=== PATIENT | male | born 1965 | race Caucasian/White ===

== ENCOUNTER 2018-07-25 08:30 | Outpatient (RCR) | payer BC, SELFPAY ==
[2018-07-04 09:40] VITALS: BP 137/84; PULSE 90; RESP 18; TEMP 36.2
--- NOTE | 2018-07-04 11:37 | PCM.WC.HP ---
(1) Ulcer of left lower extremity with fat layer exposed Status: Acute Current Visit: Yes Code(s): L97.922 - Non-pressure chronic ulcer of unspecified part of left lower leg with fat layer exposed (2) PVD (peripheral vascular disease) Status: Acute Current Visit: Yes Code(s): I73.9 - Peripheral vascular disease, unspecified (3) Chronic venous insufficiency Status: Acute Current Visit: Yes Code(s): I87.2 - Venous insufficiency (chronic) (peripheral) (4) Edema, lower extremity Status: Acute Current Visit: Yes Code(s): R60.0 - Localized edema (5) Pain of left lower extremity Status: Acute Current Visit: Yes Code(s): M79.605 - Pain in left leg (6) Delayed wound healing Status: Acute Current Visit: Yes Code(s): T14.8XXD - Other injury of unspecified body region, subsequent encounter History of Present Illness Date of Service: 07/04/18 Chief Complaint: ulcers to the left lower leg/foot History of Wound: This is a 51-year-old white male presents to wound healing center with a long-standing history of chronic venous insufficiency, chronic venous hypertension, lower extremity edema, lower extremity pain, and 3 ulcer sites to left lower leg/foot. The patient has had multiple ulcerations in the lower extremities bilaterally, related to his chronic venous disease. He also has chronic venous stasis changes. The skin changes include hyperpigmentation. 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 He is currently wearing graduated compression stockings which are documented to be 20-30 mmHg compression, however, he says the ones he has on are about a year old. He has new ones at home that he has not been wearing. 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 Patient says that he noticed a small area start opening on the top of his left foot about 8-10 months ago. He says he tried to doctor this on his own with old wound care supplies. He says this continued to get slightly worse. Then, about 4 months ago, he noticed the area around the medial malleolus starting to break down, and that has slowly been getting worse too. He also has a small anterior lower leg ulcer. Nothing he has done on his own to treat these areas has helped. He decided he should finally come back to the wound healing center to see if he can get the areas to heal again. 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 This procedure was performed on March 10, 2014. A vein stripping procedure was performed approximate 4 years ago in [place], [place]. Multiple incisions were made in the legs bilaterally. However, the nature of the procedure is uncertain. Allergies/Adverse Reactions: Allergies ciprofloxacin [From Cipro] Allergy (Verified 08/02/17 11:17) Rash ciprofloxacin HCl [From Cipro] Allergy (Verified 08/02/17 11:17) Rash Home Medications: Ambulatory Orders Medication Instructions Recorded Aspirin [Aspirin, Baby] 81 mg PO DAILY@0800 07/04/18 Ibuprofen 400 mg PO Q6H PRN PRN 07/04/18 - Family History Paternal - - The patient's father at age of 72 with history of lip cancer, myocardial infarction, and cerebrovascular accident. The patient's mother at age 75 with a history of cerebrovascular accident. Smoking Status: Heavy Smoker (>10/day) Review of Systems Constitutional: Denies: Chills, Fever, Weight Change Cardiovascular: Denies: Chest Pain, Palpitations Respiratory: Denies: Cough, Shortness of Breath Gastrointestinal: Denies: Diarrhea, Nausea, Vomiting Musculoskeletal: Reports: Leg Pain Skin: Reports: - - ulcers - Physical Exam Vital Signs Temp Pulse Resp BP 97.1 F L 90 18 137/84 H 07/04/18 09:40 07/04/18 09:40 07/04/18 09:40 07/04/18 09:40 General: Alert, Oriented x3, Cooperative, No apparent distress Extremities: No cyanosis, Capillary Refill Less than 3 Seconds, No Calf Tenderness - Negative Lakisha and Hough sign, Diminished Peripheral Pulses - DP pulse palpable of the left foot and PT pulses nonpalpable, Edema - Lower extremity edema Skin: Ulcer/ Wound - Ulcer to the left dorsomedial foot, left medial ankle, and left anterior lower leg with fat layer exposed. The measurements of each ulcer are listed below. The bases of each ulcer are adherent slough, fibrin, necrotic tissue, hyperkeratotic tissue, and some slight granular tissue. There is no probing, no tracking, no undermining, no surrounding or extending cellulitis, no purulence, no malodor, and no significant increase in warmth appreciated to any ulcer site. Wound Measurements and Assessment WC - Nurse 1 - General Ulcer Measurement Start: 07/04/18 09:40 Freq: Status: Active Protocol: Activity Type Activity Date Activity User E-Sign Co-Sign Detail Recorded Client Recorded Date Recorded By Document 07/04/18 09:40 [id number] 07/04/18 10:14 RB 07/04/18 09:40 Wound Center Nurse 1 [Ulcer Assessment] 6. L ankle superior -Combined with other wound No -Current Size (cm) - Length 2.4 -Current Size (cm) - Width 0.2 -Current Size (cm) - Depth 0.1 -Total Square Cm 0.48 -Photo Taken Yes -Undermining/Tunneling No -Circular Undermining No -Classification - Thickness Full Thickness without Exposed Support Structure -Exudate Amt Medium (34-66%) -Exudate Type Serosanguineous -Wound Margin Thickened & Rolled Under -Granulation Amt Medium (34-66%) -Granulation Quality [place] -Slough/Fibrin Yes -Necrosis Amt Medium (34-66%) -Necrotic Tissue Type Adherent Slough -Structure Exposed N/A -Texture (Ara-wound Skin Appearance) Assessed -Moisture (Ara-wound Skin Appearance Dry/Scaly ) -Color (Ara-wound Skin Appearance) Assessed -Temperature (Ara-wound Skin No Abnormality Appearance) (Pt Warm) -Tenderness on Palpation (Ara-wound No Skin Appearance) -Ulcer Cleansing Rinsed/ Irrigated with Saline -Foul Odor after Cleansing No -Anesthetic Used 4% Lidocaine Solution 5. L ankle inferior cluster -Combined with other wound No -Current Size (cm) - Length 3.7 -Current Size (cm) - Width 4.6 -Current Size (cm) - Depth 0.3 -Total Square Cm 17.02 -Photo Taken Yes -Tunneling No -Undermining/Tunneling No -Circular Undermining No -Classification - Thickness Full Thickness without Exposed Support Structure -Exudate Amt Medium (34-66%) -Exudate Type Serosanguineous -Wound Margin Thickened & Rolled Under -Granulation Amt Medium (34-66%) -Granulation Quality [place] -Slough/Fibrin Yes -Necrosis Amt Medium (34-66%) -Necrotic Tissue Type Adherent Slough -Structure Exposed N/A -Texture (Ara-wound Skin Appearance) Assessed -Moisture (Ara-wound Skin Appearance Assessed ) Dry/Scaly -Color (Ara-wound Skin Appearance) Assessed -Temperature (Ara-wound Skin No Abnormality Appearance) (Pt Warm) -Tenderness on Palpation (Ara-wound No Skin Appearance) -Ulcer Cleansing Rinsed/ Irrigated with Saline -Foul Odor after Cleansing No -Anesthetic Used 4% Lidocaine Solution 4. L medial foot -Combined with other wound No -Current Size (cm) - Length 2.5 -Current Size (cm) - Width 1.2 -Current Size (cm) - Depth 0.3 -Total Square Cm 3.00 -Photo Taken Yes -Tunneling No -Undermining/Tunneling No -Circular Undermining No -Classification - Thickness Full Thickness without Exposed Support Structure -Exudate Amt Medium (34-66%) -Exudate Type Serosanguineous -Wound Margin Thickened & Rolled Under -Granulation Amt Medium (34-66%) -Granulation Quality [place] -Slough/Fibrin Yes -Necrosis Amt Medium (34-66%) -Necrotic Tissue Type Adherent Slough -Structure Exposed N/A -Texture (Ara-wound Skin Appearance) Assessed -Moisture (Ara-wound Skin Appearance Dry/Scaly ) -Color (Ara-wound Skin Appearance) Assessed -Temperature (Ara-wound Skin No Abnormality Appearance) (Pt Warm) -Tenderness on Palpation (Ara-wound No Skin Appearance) -Ulcer Cleansing Rinsed/ Irrigated with Saline -Foul Odor after Cleansing No -Anesthetic Used 4% Lidocaine Solution [Edema Assessment] -Lower Limb Edema Present Yes -Right Calf (cm) 36 -Right Ankle (cm) 21.2 -Left Calf (cm) 35 -Left Ankle (cm) 22.5 WC - Nurse 2 - General Ulcer CM Notes Start: 07/04/18 09:40 Freq: Status: Active Protocol: Activity Type Activity Date Activity User E-Sign Co-Sign Detail Recorded Client Recorded Date Recorded By Document 07/04/18 10:53 LEVI [id number] 07/04/18 11:09 LEVI 07/04/18 10:53 Wound Center Nurse 2 [Procedure/Treatment] 6. L ankle superior -Time 10:53 -Correct Patient Yes -Correct Side, Site, Position Yes -Correct Procedure Yes -Procedure Performed Yes -Type of Procedure Debridement -Clinical Debridement Subcutaneous -Post Debridement Size (cm) - Length 2.5 -Post Debridement Size (cm) - Width 0.3 -Post Debridement Size (cm) - Depth 0.2 -Total Square Cm 0.75 -Wound/Ulcer Outcome Healed- Epithelialized -Foul Odor after Cleansing No -Bioengineered Tissue No -Topical Lidocaine (%) 4 -Lidocaine (ml) 10 -Bleeding Controlled with NA -Treatment Response Procedure Tolerated Well 5. L ankle inferior cluster -Time 10:53 -Correct Patient Yes -Correct Side, Site, Position Yes -Correct Procedure Yes -Procedure Performed Yes -Type of Procedure Debridement -Clinical Debridement Subcutaneous -Post Debridement Size (cm) - Length 3.2 -Post Debridement Size (cm) - Width 4.2 -Post Debridement Size (cm) - Depth 0.3 -Total Square Cm 13.44 -Wound/Ulcer Outcome Not Healed -Ulcer Cleansing Rinsed/ Irrigated with Saline -Foul Odor after Cleansing No -Bioengineered Tissue No -Topical Lidocaine (%) 4 -Lidocaine (ml) 5 -Bleeding Controlled with NA -Treatment Response Procedure Tolerated Well 4. L medial foot -Time 10:53 -Correct Patient Yes -Correct Side, Site, Position Yes -Correct Procedure Yes -Procedure Performed Yes -Type of Procedure Debridement -Clinical Debridement Subcutaneous -Post Debridement Size (cm) - Length 2.5 -Post Debridement Size (cm) - Width 1.1 -Post Debridement Size (cm) - Depth 0.3 -Total Square Cm 2.75 -Wound/Ulcer Outcome Not Healed -Ulcer Cleansing Rinsed/ Irrigated with Saline -Foul Odor after Cleansing No -Bioengineered Tissue No -Injectable Lidocaine (%) 4 -Injectable Lidocaine w/ Epi (%) 5 -Bleeding Controlled with NA -Treatment Response Procedure Tolerated Well [See Physician Procedure note for Specifics] Pain Scale: 0-10 Numeric [Pain] -Is Patient Pain Free? Yes Musculoskeletal: No Tenderness to Palpation of Joints or Extremities, Tenderness - With manipulation of ulcer site Neurological: Sensory exam intact to light touch and pain Psych/Mental Status: Normal Affect, Appropriate Debridement Note Post-Debridement Measurements/Treatment WC - Nurse 2 - General Ulcer CM Notes Start: 07/04/18 09:40 Freq: Status: Active Protocol: Activity Type Activity Date Activity User E-Sign Co-Sign Detail Recorded Client Recorded Date Recorded By Document 07/04/18 10:53 LEVI [id number] 07/04/18 11:09 LEVI 07/04/18 10:53 Wound Center Nurse 2 6. L ankle superior -Time 10:53 -Correct Patient Yes -Correct Side, Site, Position Yes -Correct Procedure Yes -Procedure Performed Yes -Type of Procedure Debridement -Clinical Debridement Subcutaneous -Post Debridement Size (cm) - Length 2.5 -Post Debridement Size (cm) - Width 0.3 -Post Debridement Size (cm) - Depth 0.2 -Total Square Cm 0.75 -Wound/Ulcer Outcome Healed- Epithelialized -Foul Odor after Cleansing No -Bioengineered Tissue No -Topical Lidocaine (%) 4 -Lidocaine (ml) 10 -Bleeding Controlled with NA -Treatment Response Procedure Tolerated Well 5. L ankle inferior cluster -Time 10:53 -Correct Patient Yes -Correct Side, Site, Position Yes -Correct Procedure Yes -Procedure Performed Yes -Type of Procedure Debridement -Clinical Debridement Subcutaneous -Post Debridement Size (cm) - Length 3.2 -Post Debridement Size (cm) - Width 4.2 -Post Debridement Size (cm) - Depth 0.3 -Total Square Cm 13.44 -Wound/Ulcer Outcome Not Healed -Ulcer Cleansing Rinsed/ Irrigated with Saline -Foul Odor after Cleansing No -Bioengineered Tissue No -Topical Lidocaine (%) 4 -Lidocaine (ml) 5 -Bleeding Controlled with NA -Treatment Response Procedure Tolerated Well 4. L medial foot -Time 10:53 -Correct Patient Yes -Correct Side, Site, Position Yes -Correct Procedure Yes -Procedure Performed Yes -Type of Procedure Debridement -Clinical Debridement Subcutaneous -Post Debridement Size (cm) - Length 2.5 -Post Debridement Size (cm) - Width 1.1 -Post Debridement Size (cm) - Depth 0.3 -Total Square Cm 2.75 -Wound/Ulcer Outcome Not Healed -Ulcer Cleansing Rinsed/ Irrigated with Saline -Foul Odor after Cleansing No -Bioengineered Tissue No -Injectable Lidocaine (%) 4 -Injectable Lidocaine w/ Epi (%) 5 -Bleeding Controlled with NA -Treatment Response Procedure Tolerated Well Pain Scale: 0-10 Numeric Is Patient Pain Free? Yes Wound debrided: Left dorsomedial foot Laterality: Left Type of Debridement: Excisional debridement Anesthesia Used: 4% Lidocaine Solution Depth: in the subcutaneous layer Percentage of wound debrided: 100 Instrument Used: 3mm curette Tissue Removed: Adherent slough, fibrin, necrotic tissue, hyperkeratotic tissue Severity: Fat Layer Exposed Amount of bleeding with debridement: Mild Bleeding Controlled with: Pressure Patient tolerated procedure well - Additional Wound Wound debrided: Left medial ankle Laterality: Left Type of Debridement: Excisional debridement Anesthesia Used: 4% Lidocaine Solution Depth: in the subcutaneous layer Percentage of wound debrided: 100 Instrument Used: 3mm curette Tissue Removed: Adherent slough, fibrin, necrotic tissue, hyperkeratotic tissue Severity: Fat Layer Exposed Amount of bleeding with debridement: Mild Bleeding Controlled with: Pressure Patient tolerated procedure: Patient tolerated procedure well - Additional Wound Wound debrided: Left anterior lower leg Laterality: Left Type of Debridement: Excisional debridement Anesthesia Used: 4% Lidocaine Solution Depth: in the subcutaneous layer Percentage of wound debrided: 100 Instrument Used: 3mm curette Tissue Removed: Adherent slough, fibrin, necrotic tissue, hyperkeratotic tissue Severity: Fat Layer Exposed Amount of bleeding with debridement: Mild Bleeding Controlled with: Pressure Patient tolerated procedure: Patient tolerated procedure well Assessment/Plan Active Problems Ulcer of left lower extremity with fat layer exposed (Acute) PVD (peripheral vascular disease) (Acute) Chronic venous insufficiency (Acute) Edema, lower extremity (Acute) Pain of left lower extremity (Acute) Delayed wound healing (Acute) Assessment: Right medial ankle ulcer resolved. Peripheral vascular occlusive disease. Nonhealing ulcers resolved. Edema Plan: Initial patient examination and evaluation was performed today. Subcutaneous debridement was performed to each of the aforementioned ulcer sites as noted in the clinical panel. Once complete, the ulcer sites were carefully cleansed and then dressed with Elvira to the bases followed by a dry sterile dressing and Tubigrip for compression. The patient is to continue the dressing changes in this manner on a daily basis. The importance of offloading the ulcer site was discussed at length with this patient today. He says he is unable to completely stop working, but he does have the option for light duty. A note was written for the patient to be on light duty at work while being treated for open ulcers. The importance of keeping pressure off of these sites was again stressed and we will do our best to keep these areas offloaded. Patient was instructed that while not at work, he is to be off his feet as much as possible and to keep the areas elevated. The importance of compression was also discussed with this patient today. No antibiotics were prescribed today due to the areas not showing signs of acute bacterial infection, however cultures were taken and sent for aerobic, anaerobic, and MRSA PCR evaluation. Pending results, the patient may be placed on an antibiotic in the future. LEAS studies were ordered, and we will evaluate the results prior to patient's next visit. I recommend nutritional supplementation with a high-protein diet at this time in order to help optimize ulcer healing potential. Smoking cessation was stressed today. All signs and symptoms of local and systemic infection were discussed in great detail with the patient today and he was instructed to go to the emergency room immediately should he notice any of these. All questions were answered to the patient's satisfaction. Patient will follow-up in clinic in 1 week to check on progress, or sooner if needed.
[2018-07-11 10:02] VITALS: BP 146/95; PULSE 84; RESP 16; TEMP 36.3
--- NOTE | 2018-07-11 11:12 | CON.PCM_ITS ---
Problem List (1) Ulcer of left lower extremity with fat layer exposed Status: Acute Reason for Consult: LLE ulcer Consulted by: Dr. Elkins History of Present Illness: The patient is a 53 year old M with chronic venous insufficiency who follows at wound care for L ankle ulcers present for several months. Some pain, some redness, some yellow/clear drainage. Sx relatively stable for past few months without abx. No fever. Reports itching with cipro in the past. Doesn't think he has taken levaquin. Established with Dr. Elkins last week. Wound cx done, now with rare PsA, CoNS, and anaerobes. Full ROS performed and neg except as noted above. 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 (Chronic) Tobacco abuse (Chronic) Hypertension (Chronic) Venous stasis of lower extremity (Chronic) Allergies/Adverse Reactions: Allergies ciprofloxacin [From Cipro] Allergy (Verified 08/02/17 11:17) Rash ciprofloxacin HCl [From Cipro] Allergy (Verified 08/02/17 11:17) Rash Home Medications: Ambulatory Orders Medication Instructions Recorded Aspirin [Aspirin, Baby] 81 mg PO DAILY@0800 07/04/18 Ibuprofen 400 mg PO Q6H PRN PRN 07/04/18 - Social History Tobacco Use: cigarettes Vital Signs Temp Pulse Resp BP 97.3 F L 84 16 146/95 H 07/11/18 10:02 07/11/18 10:02 07/11/18 10:02 07/11/18 10:02 Oxygen Delivery Method Room Air Microbiology Past 72 Hours 07/04/18 14:15 Gram Stain - Final Wound - Leg, Left Wound Culture - Final Pseudomonas aeroginosa Coag Negative Staph Anaerobic Culture - Final Anaerobic cocci Bacteroides thetaiotaomicron - Other Studies Radiology: [] Other Studies: [] Route of nutrition/ use of supplements: [] Nutritional Intake: [] IV Site: [] Samaniego Catheter: [] - Physical Exam General: Alert, Oriented x3, Cooperative, No apparent distress HEENT: Atraumatic, PERRLA, EOMI Neck: Supple, No Nodes Lungs: Clear to auscultation, Normal air movement Cardiovascular: Regular rate, Regular Rhythm, No murmurs Abdomen: Soft, Non Tender, Non-Distended Skin: Ulcer/ Wound - L ankle ulcer with no drainage, mild redness Musculoskeletal: No Tenderness to Palpation of Joints or Extremities Neurological: Cranial nerves II-XII grossly intact - Assessment/Plan Antibiotics: [] Assessment/Plan: [] Active and Suspected Problems Ulcer of left lower extremity with fat layer exposed (Acute) PVD (peripheral vascular disease) (Acute) Chronic venous insufficiency (Acute) Edema, lower extremity (Acute) Pain of left lower extremity (Acute) Delayed wound healing (Acute) L ankle ulcer - relatively stable for past few months off of abx. Wound swab with negative gram stain for organisms or wbc. Only rare growth of PsA and CoNS ; some anaerobes seen. This is most consistent with colonization given exam, symptoms, and cr results. Would monitor off of abx at this point and continue with topical care. If ulcer does worsen, I think the next step would be a course of augmentin. Adding po cipro or levaquin would be an option with benadryl pre-treatment. Thank you, will follow as needed, d/w Dr. Elkins.
--- NOTE | 2018-07-11 13:13 | PCM.WC.PN ---
(1) Ulcer of left lower extremity with fat layer exposed Status: Acute Current Visit: Yes Code(s): L97.922 - Non-pressure chronic ulcer of unspecified part of left lower leg with fat layer exposed (2) PVD (peripheral vascular disease) Status: Acute Current Visit: Yes Code(s): I73.9 - Peripheral vascular disease, unspecified (3) Chronic venous insufficiency Status: Acute Current Visit: Yes Code(s): I87.2 - Venous insufficiency (chronic) (peripheral) (4) Edema, lower extremity Status: Acute Current Visit: Yes Code(s): R60.0 - Localized edema (5) Pain of left lower extremity Status: Acute Current Visit: Yes Code(s): M79.605 - Pain in left leg (6) Delayed wound healing Status: Acute Current Visit: Yes Code(s): T14.8XXD - Other injury of unspecified body region, subsequent encounter Type of Wound Date of Service: 07/11/18 Chief Complaint: ulcers to the left lower leg/foot History of Wound: This is a 51-year-old white male presents to wound healing center with a long-standing history of chronic venous insufficiency, chronic venous hypertension, lower extremity edema, lower extremity pain, and 3 ulcer sites to left lower leg/foot. The patient has had multiple ulcerations in the lower extremities bilaterally, related to his chronic venous disease. He also has chronic venous stasis changes. The skin changes include hyperpigmentation. The patient has previously undergone endovenous laser ablation of the left and right great saphenous vein, the small saphenous vein, the left accessory saphenous vein, and an incompetent left calf dresser tender vein located 15 cm proximal to the left medial malleolus. He is currently wearing graduated compression stockings which are documented to be 20-30 mmHg compression, however, he says the ones he has on are about a year old. He has new ones at home that he has not been wearing. 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 Patient says that he noticed a small area start opening on the top of his left foot about 8-10 months ago. He says he tried to doctor this on his own with old wound care supplies. He says this continued to get slightly worse. Then, about 4 months ago, he noticed the area around the medial malleolus starting to break down, and that has slowly been getting worse too. He also has a small anterior lower leg ulcer. Nothing he has done on his own to treat these areas has helped. He decided he should finally come back to the wound healing center to see if he can get the areas to heal again. Progress of Wound: Ulcer sites appear fairly stable since last visit. Patient has continued with daily Elvira dressing changes. Patient denies any feelings of nausea, vomiting, fever, chills at this time. - Physical Exam Vital Signs Temp Pulse Resp BP 97.3 F L 84 16 146/95 H 07/11/18 10:02 07/11/18 10:02 07/11/18 10:07/11/18 10:02 General: Alert, Oriented x3, Cooperative, No apparent distress Extremities: No cyanosis, Capillary Refill Less than 3 Seconds, No Calf Tenderness - Negative Lakisha and Hough sign, Diminished Peripheral Pulses - DP pulses palpable and PT pulses nonpalpable, Edema - Lower extremity edema Skin: Ulcer/ Wound - Ulcer to the left dorsomedial foot, left medial ankle, and left anterior lower leg with fat layer exposed. The measurements of each ulcer site are listed below. The bases of each ulcer site still have adherent slough, fibrin, slight necrotic tissue, hyperkeratotic tissue as well as some granular tissue appreciated. There continues to be no probing to bone, no tracking, no undermining, no surrounding or extending cellulitis, no purulence, no malodor, and no increase in warmth surrounding the ulcer sites at this time. Wound Measurements and Assessment WC - Nurse 1 - General Ulcer Measurement Start: 07/04/18 09:40 Freq: Status: Active Protocol: Activity Type Activity Date Activity User E-Sign Co-Sign Detail Recorded Client Recorded Date Recorded By Document 07/11/18 10:02 [facility] [id number] 07/11/18 10:13 [facility] 07/11/18 10:02 Wound Center Nurse 1 [Ulcer Assessment] 6. L ankle superior -Combined with other wound No -Current Size (cm) - Length 0.6 -Current Size (cm) - Width 0.1 -Current Size (cm) - Depth 0.1 -Total Square Cm 0.06 -Photo Taken No -Epithelialization None Present -Tunneling No -Undermining/Tunneling No -Circular Undermining No -Exudate Amt Small (1-33%) -Exudate Type Serous -Wound Margin Distinct, Outline Attached -Granulation Amt Medium (34-66%) -Granulation Quality Goldenrod -Slough/Fibrin Yes -Necrosis Amt Medium (34-66%) -Necrotic Tissue Type Adherent Slough -Texture (Ara-wound Skin Appearance) Scarring -Moisture (Ara-wound Skin Appearance Dry/Scaly ) -Color (Ara-wound Skin Appearance) Assessed Erythema -Temperature (Ara-wound Skin No Abnormality Appearance) (Pt Warm) -Tenderness on Palpation (Ara-wound No Skin Appearance) -Ulcer Cleansing Rinsed/ Irrigated with Saline -Foul Odor after Cleansing No -Anesthetic Used 4% Lidocaine Solution 5. L ankle inferior cluster -Combined with other wound No -Current Size (cm) - Length 3.2 -Current Size (cm) - Width 0.8 -Current Size (cm) - Depth 0.2 -Total Square Cm 2.56 -Photo Taken No -Epithelialization None Present -Tunneling No -Undermining/Tunneling No -Circular Undermining No -Exudate Amt Small (1-33%) -Exudate Type Serosanguineous -Wound Margin Distinct, Outline Attached -Granulation Amt Medium (34-66%) -Granulation Quality Red -Slough/Fibrin Yes -Necrosis Amt Medium (34-66%) -Necrotic Tissue Type Adherent Slough -Texture (Ara-wound Skin Appearance) Scarring -Moisture (Ara-wound Skin Appearance Dry/Scaly ) -Color (Ara-wound Skin Appearance) Erythema -Temperature (Ara-wound Skin No Abnormality Appearance) (Pt Warm) -Tenderness on Palpation (Ara-wound No Skin Appearance) -Ulcer Cleansing Rinsed/ Irrigated with Saline -Foul Odor after Cleansing No -Anesthetic Used 4% Lidocaine Solution 4. L medial foot -Combined with other wound No -Current Size (cm) - Length 3.3 -Current Size (cm) - Width 4.5 -Current Size (cm) - Depth 0.3 -Total Square Cm 14.85 -Photo Taken No -Epithelialization None Present -Tunneling No -Undermining/Tunneling No -Circular Undermining No -Exudate Amt Medium (34-66%) -Exudate Type Serosanguineous -Wound Margin Distinct, Outline Attached -Granulation Amt Small (1-33%) -Granulation Quality Red -Slough/Fibrin Yes -Necrosis Amt Small (1-33%) -Texture (Ara-wound Skin Appearance) Scarring -Moisture (Ara-wound Skin Appearance Dry/Scaly ) -Color (Ara-wound Skin Appearance) Erythema -Temperature (Ara-wound Skin No Abnormality Appearance) (Pt Warm) -Tenderness on Palpation (Ara-wound No Skin Appearance) -Ulcer Cleansing Rinsed/ Irrigated with Saline -Foul Odor after Cleansing No -Anesthetic Used 4% Lidocaine Solution [Edema Assessment] -Lower Limb Edema Present Yes -Left Calf (cm) 36.1 -Left Ankle (cm) 23.9 WC - Nurse 2 - General Ulcer CM Notes Start: 07/04/18 09:40 Freq: Status: Active Protocol: Activity Type Activity Date Activity User E-Sign Co-Sign Detail Recorded Client Recorded Date Recorded By Document 07/11/18 10:44 [id number] 07/11/18 10:55 07/11/18 10:44 Wound Center Nurse 2 [Procedure/Treatment] 6. L ankle superior -Time 10:46 -Correct Patient Yes -Correct Side, Site, Position Yes -Correct Procedure Yes -Procedure Performed Yes -Type of Procedure Debridement -Clinical Debridement Subcutaneous -Post Debridement Size (cm) - Length 2.7 -Post Debridement Size (cm) - Width 0.3 -Post Debridement Size (cm) - Depth 0.2 -Total Square Cm 0.81 -Wound/Ulcer Outcome Not Healed -Ulcer Cleansing Not Cleansed -Foul Odor after Cleansing No -Bioengineered Tissue No -Bleeding Controlled with Pressure -Treatment Response Procedure Not Tolerated Well 5. L ankle inferior cluster -Time 10:46 -Correct Patient Yes -Correct Side, Site, Position Yes -Correct Procedure Yes -Procedure Performed Yes -Type of Procedure Debridement -Clinical Debridement Subcutaneous -Post Debridement Size (cm) - Length 2.9 -Post Debridement Size (cm) - Width 1.1 -Post Debridement Size (cm) - Depth 0.3 -Total Square Cm 3.19 -Wound/Ulcer Outcome Not Healed -Ulcer Cleansing Not Cleansed -Foul Odor after Cleansing No -Bioengineered Tissue No -Bleeding Controlled with Pressure -Treatment Response Procedure Tolerated Well 4. L medial foot -Time 10:46 -Correct Patient Yes -Correct Side, Site, Position Yes -Correct Procedure Yes -Procedure Performed Yes -Type of Procedure Debridement -Clinical Debridement Subcutaneous -Post Debridement Size (cm) - Length 3.9 -Post Debridement Size (cm) - Width 5.2 -Post Debridement Size (cm) - Depth 0.3 -Total Square Cm 20.28 -Wound/Ulcer Outcome Not Healed -Ulcer Cleansing Not Cleansed -Foul Odor after Cleansing No -Bioengineered Tissue No -Bleeding Controlled with Pressure -Treatment Response Procedure Tolerated Well [See Physician Procedure note for Specifics] Pain Scale: 0-10 Numeric [Pain] -Is Patient Pain Free? No Musculoskeletal: No Tenderness to Palpation of Joints or Extremities, Tenderness - With manipulation of ulcer sites Neurological: Sensory exam intact to light touch and pain Psych/Mental Status: Normal Affect, Appropriate Debridement Note Post-Debridement Measurements/Treatment WC - Nurse 2 - General Ulcer CM Notes Start: 07/04/18 09:40 Freq: Status: Active Protocol: Activity Type Activity Date Activity User E-Sign Co-Sign Detail Recorded Client Recorded Date Recorded By Document 07/04/18 10:53 [id number] 07/04/18 11:09 JS Document 07/11/18 10:44 [id number] 07/11/18 10:55 07/04/18 07/11/18 10:53 10:44 Wound Center Nurse 2 6. L ankle superior -Time 10:53 10:46 -Correct Patient Yes Yes -Correct Side, Site, Position Yes Yes -Correct Procedure Yes Yes -Procedure Performed Yes Yes -Type of Procedure Debridement Debridement -Clinical Debridement Subcutaneous Subcutaneous -Post Debridement Size (cm) - Length 2.5 2.7 -Post Debridement Size (cm) - Width 0.3 0.3 -Post Debridement Size (cm) - Depth 0.2 0.2 -Total Square Cm 0.75 0.81 -Wound/Ulcer Outcome Healed- Not Healed Epithelialized -Ulcer Cleansing Not Cleansed -Foul Odor after Cleansing No No -Bioengineered Tissue No No -Topical Lidocaine (%) 4 -Lidocaine (ml) 10 -Bleeding Controlled with NA Pressure -Treatment Response Procedure Procedure Not Tolerated Well Tolerated Well 5. L ankle inferior cluster -Time 10:53 10:46 -Correct Patient Yes Yes -Correct Side, Site, Position Yes Yes -Correct Procedure Yes Yes -Procedure Performed Yes Yes -Type of Procedure Debridement Debridement -Clinical Debridement Subcutaneous Subcutaneous -Post Debridement Size (cm) - Length 3.2 2.9 -Post Debridement Size (cm) - Width 4.2 1.1 -Post Debridement Size (cm) - Depth 0.3 0.3 -Total Square Cm 13.44 3.19 -Wound/Ulcer Outcome Not Healed Not Healed -Ulcer Cleansing Rinsed/ Not Cleansed Irrigated with Saline -Foul Odor after Cleansing No No -Bioengineered Tissue No No -Topical Lidocaine (%) 4 -Lidocaine (ml) 5 -Bleeding Controlled with NA Pressure -Treatment Response Procedure Procedure Tolerated Well Tolerated Well 4. L medial foot -Time 10:53 10:46 -Correct Patient Yes Yes -Correct Side, Site, Position Yes Yes -Correct Procedure Yes Yes -Procedure Performed Yes Yes -Type of Procedure Debridement Debridement -Clinical Debridement Subcutaneous Subcutaneous -Post Debridement Size (cm) - Length 2.5 3.9 -Post Debridement Size (cm) - Width 1.1 5.2 -Post Debridement Size (cm) - Depth 0.3 0.3 -Total Square Cm 2.75 20.28 -Wound/Ulcer Outcome Not Healed Not Healed -Ulcer Cleansing Rinsed/ Not Cleansed Irrigated with Saline -Foul Odor after Cleansing No No -Bioengineered Tissue No No -Injectable Lidocaine (%) 4 -Injectable Lidocaine w/ Epi (%) 5 -Bleeding Controlled with NA Pressure -Treatment Response Procedure Procedure Tolerated Well Tolerated Well Pain Scale: 0-10 Numeric Is Patient Pain Free? Yes No Wound debrided: Left dorsomedial foot Laterality: Left Type of Debridement: Excisional debridement Anesthesia Used: 4% Lidocaine Solution Depth: in the subcutaneous layer Percentage of wound debrided: 100 Instrument Used: 3mm curette Tissue Removed: Adherent slough, fibrin, necrotic tissue, hyperkeratotic tissue Severity: Fat Layer Exposed Amount of bleeding with debridement: Mild Bleeding Controlled with: Pressure Patient tolerated procedure well - Additional Wound Wound debrided: Left medial ankle Laterality: Left Type of Debridement: Excisional debridement Anesthesia Used: 4% Lidocaine Solution Depth: in the subcutaneous layer Percentage of wound debrided: 100 Instrument Used: 3mm curette Tissue Removed: Adherent slough, fibrin, necrotic tissue, hyperkeratotic tissue Severity: Fat Layer Exposed Amount of bleeding with debridement: Mild Bleeding Controlled with: Pressure Patient tolerated procedure: Patient tolerated procedure well - Additional Wound Wound debrided: Left anterior lower leg Laterality: Left Type of Debridement: Excisional debridement Anesthesia Used: 4% Lidocaine Solution Depth: in the subcutaneous layer Percentage of wound debrided: 100 Instrument Used: 3mm curette Tissue Removed: Adherent slough, fibrin, necrotic tissue, hyperkeratotic tissue Severity: Fat Layer Exposed Amount of bleeding with debridement: Mild Bleeding Controlled with: Pressure Patient tolerated procedure: Patient tolerated procedure well Assessment/Plan Active Problems Ulcer of left lower extremity with fat layer exposed (Acute) PVD (peripheral vascular disease) (Acute) Chronic venous insufficiency (Acute) Edema, lower extremity (Acute) Pain of left lower extremity (Acute) Delayed wound healing (Acute) Assessment: Right medial ankle ulcer resolved. Peripheral vascular occlusive disease. Nonhealing ulcers resolved. Edema Plan: Patient was carefully examined and evaluated today. Subcutaneous debridement was performed to each of the aforementioned ulcer sites as noted in the clinical panel again this week. Once complete, the ulcer sites were carefully cleansed and then dressed with Elvira to the bases followed by a dry sterile dressing and Tubigrip for compression. The patient is to continue the dressing changes in this manner on a daily basis. The importance of offloading the ulcer site was discussed at length with this patient again today. He says he is unable to completely stop working, but he does have the option for light duty. A note was written for the patient to be on light duty at work while being treated for open ulcers again this week. Patient was instructed that while not at work, he is to be off his feet as much as possible and to keep the areas elevated. The importance of compression was also discussed with this patient today. Culture results were reviewed and Dr. Farris with infectious disease was consulted and saw the patient today. He feels that at this time, antibiotics are not warranted, and that the patient should continue to be monitored in case he needs antibiotics in the future. LEAS studies were ordered at previous visit, and we will evaluate the results once the studies are completed. I continue to recommend nutritional supplementation with a high-protein diet at this time in order to help optimize ulcer healing potential. Smoking cessation was stressed today. All signs and symptoms of local and systemic infection were discussed in great detail with the patient today and he was instructed to go to the emergency room immediately should he notice any of these. All questions were answered to the patient's satisfaction. Patient will follow-up in clinic in 1 week to check on progress, or sooner if needed.
--- NOTE | 2018-07-11 13:17 | PN.PCM_ITS ---
(1) Ulcer of left lower extremity with fat layer exposed Status: Acute Current Visit: Yes Code(s): L97.922 - Non-pressure chronic ulcer of unspecified part of left lower leg with fat layer exposed (2) PVD (peripheral vascular disease) Status: Acute Current Visit: Yes Code(s): I73.9 - Peripheral vascular disease, unspecified (3) Chronic venous insufficiency Status: Acute Current Visit: Yes Code(s): I87.2 - Venous insufficiency ( chronic) (peripheral) (4) Edema, lower extremity Status: Acute Current Visit: Yes Code(s): R60.0 - Localized edema (5) Pain of left lower extremity Status: Acute Current Visit: Yes Code(s): M79.605 - Pain in left leg (6) Delayed wound healing Status: Acute Current Visit: Yes Code(s): T14.8XXD - Other injury of unspecified body region, subsequent encounter Type of Wound Date of Service: 07/11/18 Chief Complaint: ulcers to the left lower leg/foot History of Wound: This is a 51-year-old white male presents to wound healing center with a long-standing history of chronic venous insufficiency, chronic venous hypertension, lower extremity edema, lower extremity pain, and 3 ulcer sites to left lower leg/foot. The patient has had multiple ulcerations in the lower extremities bilaterally, related to his chronic venous disease. He also has chronic venous stasis changes. The skin changes include hyperpigmentation. The patient has previously undergone endovenous laser ablation of the left and right great saphenous vein, the small saphenous vein, the left accessory saphenous vein, and an incompetent left calf wireline operator vein located 15 cm proximal to the left medial malleolus. He is currently wearing graduated compression stockings which are documented to be 20-30 mmHg compression, however , he says the ones he has on are about a year old. He has new ones at home that he has not been wearing. 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 Patient says that he noticed a small area start opening on the top of his left foot about 8-10 months ago. He says he tried to doctor this on his own with old wound care supplies. He says this continued to get slightly worse. Then, about 4 months ago, he noticed the area around the medial malleolus starting to break down, and that has slowly been getting worse too. He also has a small anterior lower leg ulcer. Nothing he has done on his own to treat these areas has helped. He decided he should finally come back to the wound healing center to see if he can get the areas to heal again. Progress of Wound: Ulcer sites appear fairly stable since last visit. Patient has continued with daily Elvira dressing changes. Patient denies any feelings of nausea, vomiting, fever, chills at this time. - Physical Exam Vital Signs Temp Pulse Resp BP 97.3 F L 84 16 146/95 H 07/11/18 10:02 07/11/18 10:02 07/11/18 10:07/11/18 10:02 General: Alert, Oriented x3, Cooperative, No apparent distress Extremities: No cyanosis, Capillary Refill Less than 3 Seconds, No Calf Tenderness - Negative Lakisha and Hough sign, Diminished Peripheral Pulses - DP pulses palpable and PT pulses nonpalpable, Edema - Lower extremity edema Skin: Ulcer/ Wound - Ulcer to the left dorsomedial foot, left medial ankle, and left anterior lower leg with fat layer exposed. The measurements of each ulcer site are listed below. The bases of each ulcer site still have adherent slough , fibrin, slight necrotic tissue, hyperkeratotic tissue as well as some granular tissue appreciated. There continues to be no probing to bone, no tracking, no undermining, no surrounding or extending cellulitis, no purulence, no malodor, and no increase in warmth surrounding the ulcer sites at this time. Wound Measurements and Assessment WC - Nurse 1 - General Ulcer Measurement Start: 07/04/18 09:40 Freq: Status: Active Protocol: Activity Type Activity Date Activity User E-Sign Co-Sign Detail Recorded Client Recorded Date Recorded By Document 07/11/18 10:02 [facility] [id number] 07/11/18 10:13 [facility] 07/11/18 10:02 Wound Center Nurse 1 [Ulcer Assessment] 6. L ankle superior -Combined with other wound No -Current Size (cm) - Length 0.6 -Current Size (cm) - Width 0.1 -Current Size (cm) - Depth 0.1 -Total Square Cm 0.06 -Photo Taken No -Epithelialization None Present -Tunneling No -Undermining/Tunneling No -Circular Undermining No -Exudate Amt Small (1-33%) -Exudate Type Serous -Wound Margin Distinct, Outline Attached -Granulation Amt Medium (34-66%) -Granulation Quality [place] -Slough/Fibrin Yes -Necrosis Amt Medium (34-66%) -Necrotic Tissue Type Adherent Slough -Texture (Ara-wound Skin Appearance) Scarring -Moisture (Ara-wound Skin Appearance Dry/Scaly ) -Color (Ara-wound Skin Appearance) Assessed Erythema -Temperature (Ara-wound Skin No Abnormality Appearance) (Pt Warm) -Tenderness on Palpation (Ara-wound No Skin Appearance) -Ulcer Cleansing Rinsed/ Irrigated with Saline -Foul Odor after Cleansing No -Anesthetic Used 4% Lidocaine Solution 5. L ankle inferior cluster -Combined with other wound No -Current Size (cm) - Length 3.2 -Current Size (cm) - Width 0.8 -Current Size (cm) - Depth 0.2 -Total Square Cm 2.56 -Photo Taken No -Epithelialization None Present -Tunneling No -Undermining/Tunneling No -Circular Undermining No -Exudate Amt Small (1-33%) -Exudate Type Serosanguineous -Wound Margin Distinct, Outline Attached -Granulation Amt Medium (34-66%) -Granulation Quality Red -Slough/Fibrin Yes -Necrosis Amt Medium (34-66%) -Necrotic Tissue Type Adherent Slough -Texture (Ara-wound Skin Appearance) Scarring -Moisture (Ara-wound Skin Appearance Dry/Scaly ) -Color (Ara-wound Skin Appearance) Erythema -Temperature (Ara-wound Skin No Abnormality Appearance) (Pt Warm) -Tenderness on Palpation (Ara-wound No Skin Appearance) -Ulcer Cleansing Rinsed/ Irrigated with Saline -Foul Odor after Cleansing No -Anesthetic Used 4% Lidocaine Solution 4. L medial foot -Combined with other wound No -Current Size (cm) - Length 3.3 -Current Size (cm) - Width 4.5 -Current Size (cm) - Depth 0.3 -Total Square Cm 14.85 -Photo Taken No -Epithelialization None Present -Tunneling No -Undermining/Tunneling No -Circular Undermining No -Exudate Amt Medium (34-66%) -Exudate Type Serosanguineous -Wound Margin Distinct, Outline Attached -Granulation Amt Small (1-33%) -Granulation Quality Red -Slough/Fibrin Yes -Necrosis Amt Small (1-33%) -Texture (Ara-wound Skin Appearance) Scarring -Moisture (Ara-wound Skin Appearance Dry/Scaly ) -Color (Ara-wound Skin Appearance) Erythema -Temperature (Ara-wound Skin No Abnormality Appearance) (Pt Warm) -Tenderness on Palpation (Ara-wound No Skin Appearance) -Ulcer Cleansing Rinsed/ Irrigated with Saline -Foul Odor after Cleansing No -Anesthetic Used 4% Lidocaine Solution [Edema Assessment] -Lower Limb Edema Present Yes -Left Calf (cm) 36.1 -Left Ankle (cm) 23.9 WC - Nurse 2 - General Ulcer CM Notes Start: 07/04/18 09:40 Freq: Status: Active Protocol: Activity Type Activity Date Activity User E-Sign Co-Sign Detail Recorded Client Recorded Date Recorded By Document 07/11/18 10:44 [id number] 07/11/18 10:55 07/11/18 10:44 Wound Center Nurse 2 [Procedure/Treatment] 6. L ankle superior -Time 10:46 -Correct Patient Yes -Correct Side, Site, Position Yes -Correct Procedure Yes -Procedure Performed Yes -Type of Procedure Debridement -Clinical Debridement Subcutaneous -Post Debridement Size (cm) - Length 2.7 -Post Debridement Size (cm) - Width 0.3 -Post Debridement Size (cm) - Depth 0.2 -Total Square Cm 0.81 -Wound/Ulcer Outcome Not Healed -Ulcer Cleansing Not Cleansed -Foul Odor after Cleansing No -Bioengineered Tissue No -Bleeding Controlled with Pressure -Treatment Response Procedure Not Tolerated Well 5. L ankle inferior cluster -Time 10:46 -Correct Patient Yes -Correct Side, Site, Position Yes -Correct Procedure Yes -Procedure Performed Yes -Type of Procedure Debridement -Clinical Debridement Subcutaneous -Post Debridement Size (cm) - Length 2.9 -Post Debridement Size (cm) - Width 1.1 -Post Debridement Size (cm) - Depth 0.3 -Total Square Cm 3.19 -Wound/Ulcer Outcome Not Healed -Ulcer Cleansing Not Cleansed -Foul Odor after Cleansing No -Bioengineered Tissue No -Bleeding Controlled with Pressure -Treatment Response Procedure Tolerated Well 4. L medial foot -Time 10:46 -Correct Patient Yes -Correct Side, Site, Position Yes -Correct Procedure Yes -Procedure Performed Yes -Type of Procedure Debridement -Clinical Debridement Subcutaneous -Post Debridement Size (cm) - Length 3.9 -Post Debridement Size (cm) - Width 5.2 -Post Debridement Size (cm) - Depth 0.3 -Total Square Cm 20.28 -Wound/Ulcer Outcome Not Healed -Ulcer Cleansing Not Cleansed -Foul Odor after Cleansing No -Bioengineered Tissue No -Bleeding Controlled with Pressure -Treatment Response Procedure Tolerated Well [See Physician Procedure note for Specifics] Pain Scale: 0-10 Numeric [Pain] -Is Patient Pain Free? No Musculoskeletal: No Tenderness to Palpation of Joints or Extremities, Tenderness - With manipulation of ulcer sites Neurological: Sensory exam intact to light touch and pain Psych/Mental Status: Normal Affect, Appropriate Debridement Note Post-Debridement Measurements/Treatment WC - Nurse 2 - General Ulcer CM Notes Start: 07/04/18 09:40 Freq: Status: Active Protocol: Activity Type Activity Date Activity User E-Sign Co-Sign Detail Recorded Client Recorded Date Recorded By Document 07/04/18 10:53 [id number] 07/04/18 11:09 JS Document 07/11/18 10:44 [id number] 07/11/18 10:55 07/04/18 07/11/18 10:53 10:44 Wound Center Nurse 2 6. L ankle superior -Time 10:53 10:46 -Correct Patient Yes Yes -Correct Side, Site, Position Yes Yes -Correct Procedure Yes Yes -Procedure Performed Yes Yes -Type of Procedure Debridement Debridement -Clinical Debridement Subcutaneous Subcutaneous -Post Debridement Size (cm) - Length 2.5 2.7 -Post Debridement Size (cm) - Width 0.3 0.3 -Post Debridement Size (cm) - Depth 0.2 0.2 -Total Square Cm 0.75 0.81 -Wound/Ulcer Outcome Healed- Not Healed Epithelialized -Ulcer Cleansing Not Cleansed -Foul Odor after Cleansing No No -Bioengineered Tissue No No -Topical Lidocaine (%) 4 -Lidocaine (ml) 10 -Bleeding Controlled with NA Pressure -Treatment Response Procedure Procedure Not Tolerated Well Tolerated Well 5. L ankle inferior cluster -Time 10:53 10:46 -Correct Patient Yes Yes -Correct Side, Site, Position Yes Yes -Correct Procedure Yes Yes -Procedure Performed Yes Yes -Type of Procedure Debridement Debridement -Clinical Debridement Subcutaneous Subcutaneous -Post Debridement Size (cm) - Length 3.2 2.9 -Post Debridement Size (cm) - Width 4.2 1.1 -Post Debridement Size (cm) - Depth 0.3 0.3 -Total Square Cm 13.44 3.19 -Wound/Ulcer Outcome Not Healed Not Healed -Ulcer Cleansing Rinsed/ Not Cleansed Irrigated with Saline -Foul Odor after Cleansing No No -Bioengineered Tissue No No -Topical Lidocaine (%) 4 -Lidocaine (ml) 5 -Bleeding Controlled with NA Pressure -Treatment Response Procedure Procedure Tolerated Well Tolerated Well 4. L medial foot -Time 10:53 10:46 -Correct Patient Yes Yes -Correct Side, Site, Position Yes Yes -Correct Procedure Yes Yes -Procedure Performed Yes Yes -Type of Procedure Debridement Debridement -Clinical Debridement Subcutaneous Subcutaneous -Post Debridement Size (cm) - Length 2.5 3.9 -Post Debridement Size (cm) - Width 1.1 5.2 -Post Debridement Size (cm) - Depth 0.3 0.3 -Total Square Cm 2.75 20.28 -Wound/Ulcer Outcome Not Healed Not Healed -Ulcer Cleansing Rinsed/ Not Cleansed Irrigated with Saline -Foul Odor after Cleansing No No -Bioengineered Tissue No No -Injectable Lidocaine (%) 4 -Injectable Lidocaine w/ Epi (%) 5 -Bleeding Controlled with NA Pressure -Treatment Response Procedure Procedure Tolerated Well Tolerated Well Pain Scale: 0-10 Numeric Is Patient Pain Free? Yes No Wound debrided: Left dorsomedial foot Laterality: Left Type of Debridement: Excisional debridement Anesthesia Used: 4% Lidocaine Solution Depth: in the subcutaneous layer Percentage of wound debrided: 100 Instrument Used: 3mm curette Tissue Removed: Adherent slough, fibrin, necrotic tissue, hyperkeratotic tissue Severity: Fat Layer Exposed Amount of bleeding with debridement: Mild Bleeding Controlled with: Pressure Patient tolerated procedure well - Additional Wound Wound debrided: Left medial ankle Laterality: Left Type of Debridement: Excisional debridement Anesthesia Used: 4% Lidocaine Solution Depth: in the subcutaneous layer Percentage of wound debrided: 100 Instrument Used: 3mm curette Tissue Removed: Adherent slough, fibrin, necrotic tissue, hyperkeratotic tissue Severity: Fat Layer Exposed Amount of bleeding with debridement: Mild Bleeding Controlled with: Pressure Patient tolerated procedure: Patient tolerated procedure well - Additional Wound Wound debrided: Left anterior lower leg Laterality: Left Type of Debridement: Excisional debridement Anesthesia Used: 4% Lidocaine Solution Depth: in the subcutaneous layer Percentage of wound debrided: 100 Instrument Used: 3mm curette Tissue Removed: Adherent slough, fibrin, necrotic tissue, hyperkeratotic tissue Severity: Fat Layer Exposed Amount of bleeding with debridement: Mild Bleeding Controlled with: Pressure Patient tolerated procedure: Patient tolerated procedure well Assessment/Plan Active Problems Ulcer of left lower extremity with fat layer exposed (Acute) PVD (peripheral vascular disease) (Acute) Chronic venous insufficiency (Acute) Edema, lower extremity (Acute) Pain of left lower extremity (Acute) Delayed wound healing (Acute) Assessment: Right medial ankle ulcer resolved. Peripheral vascular occlusive disease. Nonhealing ulcers resolved. Edema Plan: Patient was carefully examined and evaluated today. Subcutaneous debridement was performed to each of the aforementioned ulcer sites as noted in the clinical panel again this week. Once complete, the ulcer sites were carefully cleansed and then dressed with Elvira to the bases followed by a dry sterile dressing and Tubigrip for compression. The patient is to continue the dressing changes in this manner on a daily basis. The importance of offloading the ulcer site was discussed at length with this patient again today. He says he is unable to completely stop working, but he does have the option for light duty. A note was written for the patient to be on light duty at work while being treated for open ulcers again this week. Patient was instructed that while not at work, he is to be off his feet as much as possible and to keep the areas elevated. The importance of compression was also discussed with this patient today. Culture results were reviewed and Dr. Farris with infectious disease was consulted and saw the patient today. He feels that at this time, antibiotics are not warranted, and that the patient should continue to be monitored in case he needs antibiotics in the future. LEAS studies were ordered at previous visit, and we will evaluate the results once the studies are completed. I continue to recommend nutritional supplementation with a high- protein diet at this time in order to help optimize ulcer healing potential. Smoking cessation was stressed today. All signs and symptoms of local and systemic infection were discussed in great detail with the patient today and he was instructed to go to the emergency room immediately should he notice any of these. All questions were answered to the patient's satisfaction. Patient will follow-up in clinic in 1 week to check on progress, or sooner if needed.
[2018-07-18 09:56] VITALS: BP 150/96; PULSE 80; RESP 16; TEMP 35.7
--- NOTE | 2018-07-18 13:55 | PCM.WC.PN ---
(1) Ulcer of left lower extremity with fat layer exposed Status: Acute Current Visit: Yes Code(s): L97.922 - Non-pressure chronic ulcer of unspecified part of left lower leg with fat layer exposed (2) PVD (peripheral vascular disease) Status: Acute Current Visit: Yes Code(s): I73.9 - Peripheral vascular disease, unspecified (3) Chronic venous insufficiency Status: Acute Current Visit: Yes Code(s): I87.2 - Venous insufficiency (chronic) (peripheral) (4) Edema, lower extremity Status: Acute Current Visit: Yes Code(s): R60.0 - Localized edema (5) Pain of left lower extremity Status: Acute Current Visit: Yes Code(s): M79.605 - Pain in left leg (6) Delayed wound healing Status: Acute Current Visit: Yes Code(s): T14.8XXD - Other injury of unspecified body region, subsequent encounter Type of Wound Date of Service: 07/18/18 Chief Complaint: ulcers to the left lower leg/foot History of Wound: This is a 51-year-old white male presents to wound healing center with a long-standing history of chronic venous insufficiency, chronic venous hypertension, lower extremity edema, lower extremity pain, and 3 ulcer sites to left lower leg/foot. The patient has had multiple ulcerations in the lower extremities bilaterally, related to his chronic venous disease. He also has chronic venous stasis changes. The skin changes include hyperpigmentation. The patient has previously undergone endovenous laser ablation of the left and right great saphenous vein, the small saphenous vein, the left accessory saphenous vein, and an incompetent left calf professor of mechanical engineering vein located 15 cm proximal to the left medial malleolus. He is currently wearing graduated compression stockings which are documented to be 20-30 mmHg compression, however, he says the ones he has on are about a year old. He has new ones at home that he has not been wearing. 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 Patient says that he noticed a small area start opening on the top of his left foot about 8-10 months ago. He says he tried to doctor this on his own with old wound care supplies. He says this continued to get slightly worse. Then, about 4 months ago, he noticed the area around the medial malleolus starting to break down, and that has slowly been getting worse too. He also has a small anterior lower leg ulcer. Nothing he has done on his own to treat these areas has helped. He decided he should finally come back to the wound healing center to see if he can get the areas to heal again. Progress of Wound: Ulcer sites appear fairly stable since last visit. Patient has continued with daily Elvira dressing changes. Patient denies any feelings of nausea, vomiting, fever, chills at this time. - Physical Exam Vital Signs Temp Pulse Resp BP 96.2 F L 80 16 150/96 H 07/18/18 09:56 07/18/18 09:56 07/18/18 09:56 07/18/18 09:56 General: Alert, Oriented x3, Cooperative, No apparent distress Extremities: No cyanosis, Capillary Refill Less than 3 Seconds, No Calf Tenderness - Negative Lakisha and Hough sign, Diminished Peripheral Pulses - DP pulses palpable and PT pulses nonpalpable, Edema - Lower extremity edema Skin: Ulcer/ Wound - Ulcer to the left dorsal medial foot, left medial ankle, and left anterior lower leg with fat layer exposed. The measurements of each ulcer site are listed below. The bases of each ulcer sites are noted to have adherent slough, fibrin, necrotic tissue, granular tissue and hyperkeratotic tissue. There continues to be no probing to bone, no tracking, no undermining, no surrounding or extending cellulitis, no purulence, no malodor, and no increase in warmth surrounding the ulcer sites today. Wound Measurements and Assessment WC - Nurse 1 - General Ulcer Measurement Start: 07/04/18 09:40 Freq: Status: Active Protocol: Activity Type Activity Date Activity User E-Sign Co-Sign Detail Recorded Client Recorded Date Recorded By Document 07/18/18 09:56 [id number] 07/18/18 10:06 07/18/18 09:56 Wound Center Nurse 1 [Ulcer Assessment] 6. L ankle superior -Combined with other wound No -Current Size (cm) - Length 0.9 -Current Size (cm) - Width 0.3 -Current Size (cm) - Depth 0.1 -Total Square Cm 0.27 -Photo Taken No -Epithelialization None Present -Tunneling No -Undermining/Tunneling No -Circular Undermining No -Exudate Amt None Present (0 %) -Wound Margin Distinct, Outline Attached -Granulation Amt None Present (0 %) -Slough/Fibrin Yes -Necrosis Amt None Present (0 %) -Necrotic Tissue Type Adherent Slough -Texture (Ara-wound Skin Appearance) Assessed Scarring -Moisture (Ara-wound Skin Appearance No Abnormality ) Assessed -Color (Ara-wound Skin Appearance) No Abnormality Assessed -Temperature (Ara-wound Skin No Abnormality Appearance) (Pt Warm) -Tenderness on Palpation (Ara-wound No Skin Appearance) -Ulcer Cleansing Rinsed/ Irrigated with Saline -Foul Odor after Cleansing No -Anesthetic Used 4% Lidocaine Solution 5. L ankle inferior cluster -Current Size (cm) - Length 2.9 -Current Size (cm) - Width 0.9 -Current Size (cm) - Depth 0.2 -Total Square Cm 2.61 -Photo Taken No -Epithelialization None Present -Tunneling No -Undermining/Tunneling No -Circular Undermining No -Exudate Amt Small (1-33%) -Exudate Type Serosanguineous -Wound Margin Distinct, Outline Attached -Granulation Amt None Present (0 %) -Slough/Fibrin Yes -Necrosis Amt None Present (0 %) -Necrotic Tissue Type Adherent Slough -Structure Exposed None/Limited to Skin Breakdown -Texture (Ara-wound Skin Appearance) Assessed Scarring -Moisture (Ara-wound Skin Appearance No Abnormality ) Assessed -Color (Ara-wound Skin Appearance) No Abnormality -Temperature (Ara-wound Skin No Abnormality Appearance) (Pt Warm) -Tenderness on Palpation (Raa-wound No Skin Appearance) -Ulcer Cleansing Rinsed/ Irrigated with Saline -Foul Odor after Cleansing No -Anesthetic Used 4% Lidocaine Solution 4. L medial foot -Combined with other wound No -Current Size (cm) - Length 4.7 -Current Size (cm) - Width 5.3 -Current Size (cm) - Depth 0.2 -Total Square Cm 24.91 -Photo Taken No -Epithelialization None Present -Tunneling No -Undermining/Tunneling No -Circular Undermining No -Exudate Amt Small (1-33%) -Exudate Type Serosanguineous -Wound Margin Distinct, Outline Attached -Granulation Amt None Present (0 %) -Granulation Quality N/A -Slough/Fibrin Yes -Necrosis Amt None Present (0 %) -Necrotic Tissue Type Adherent Slough -Texture (Ara-wound Skin Appearance) No Abnormality Assessed -Moisture (Ara-wound Skin Appearance No Abnormality ) Assessed -Color (Ara-wound Skin Appearance) No Abnormality Assessed -Temperature (Ara-wound Skin No Abnormality Appearance) (Pt Warm) -Tenderness on Palpation (Ara-wound No Skin Appearance) -Ulcer Cleansing Rinsed/ Irrigated with Saline -Foul Odor after Cleansing No -Anesthetic Used 4% Lidocaine Solution [Edema Assessment] -Lower Limb Edema Present No -Left Calf (cm) 34 -Left Ankle (cm) 25 WC - Nurse 2 - General Ulcer CM Notes Start: 07/04/18 09:40 Freq: Status: Active Protocol: Activity Type Activity Date Activity User E-Sign Co-Sign Detail Recorded Client Recorded Date Recorded By Document 07/18/18 10:32 DV [id number] 07/18/18 10:43 DV 07/18/18 10:32 Wound Center Nurse 2 [Procedure/Treatment] 6. L ankle superior -Time 10:32 -Correct Patient Yes -Correct Side, Site, Position Yes -Correct Procedure Yes -Procedure Performed Yes -Type of Procedure Debridement -Clinical Debridement Subcutaneous -Post Debridement Size (cm) - Length 1.0 -Post Debridement Size (cm) - Width 0.3 -Post Debridement Size (cm) - Depth 0.2 -Total Square Cm 0.30 -Wound/Ulcer Outcome Not Healed -Ulcer Cleansing Rinsed/ Irrigated with Saline -Foul Odor after Cleansing No -Bioengineered Tissue No -Bleeding Controlled with Pressure -Treatment Response Procedure Tolerated Well 5. L ankle inferior cluster -Time 10:33 -Correct Patient Yes -Correct Side, Site, Position Yes -Correct Procedure Yes -Procedure Performed Yes -Type of Procedure Debridement -Clinical Debridement Subcutaneous -Post Debridement Size (cm) - Length 2.8 -Post Debridement Size (cm) - Width 1.0 -Post Debridement Size (cm) - Depth 0.2 -Total Square Cm 2.80 -Wound/Ulcer Outcome Not Healed -Ulcer Cleansing Rinsed/ Irrigated with Saline -Foul Odor after Cleansing No -Bioengineered Tissue No -Bleeding Controlled with Pressure -Treatment Response Procedure Tolerated Well 4. L medial foot -Time 10:34 -Correct Patient Yes -Correct Side, Site, Position Yes -Correct Procedure Yes -Procedure Performed Yes -Type of Procedure Debridement -Clinical Debridement Subcutaneous -Post Debridement Size (cm) - Length 4.3 -Post Debridement Size (cm) - Width 5.4 -Post Debridement Size (cm) - Depth 0.3 -Total Square Cm 23.22 -Wound/Ulcer Outcome Not Healed -Ulcer Cleansing Rinsed/ Irrigated with Saline -Foul Odor after Cleansing No -Bioengineered Tissue No -Bleeding Controlled with Pressure -Treatment Response Procedure Tolerated Well [See Physician Procedure note for Specifics] Pain Scale: 0-10 Numeric [Pain] -Is Patient Pain Free? Yes Musculoskeletal: No Tenderness to Palpation of Joints or Extremities, Tenderness - Some slight tenderness with manipulation of some of the ulcer sites. Neurological: Sensory exam intact to light touch and pain Psych/Mental Status: Normal Affect, Appropriate Debridement Note Post-Debridement Measurements/Treatment WC - Nurse 2 - General Ulcer CM Notes Start: 07/04/18 09:40 Freq: Status: Active Protocol: Activity Type Activity Date Activity User E-Sign Co-Sign Detail Recorded Client Recorded Date Recorded By Document 07/04/18 10:53 [id number] 07/04/18 11:09 Document 07/11/18 10:44 [id number] 07/11/18 10:55 Document 07/18/18 10:32 DV [id number] 07/18/18 10:43 DV 07/04/18 07/11/18 07/18/18 10:53 10:44 10:32 Wound Center Nurse 2 6. L ankle superior -Time 10:53 10:46 10:32 -Correct Patient Yes Yes Yes -Correct Side, Site, Position Yes Yes Yes -Correct Procedure Yes Yes Yes -Procedure Performed Yes Yes Yes -Type of Procedure Debridement Debridement Debridement -Clinical Debridement Subcutaneous Subcutaneous Subcutaneous -Post Debridement Size (cm) - Length 2.5 2.7 1.0 -Post Debridement Size (cm) - Width 0.3 0.3 0.3 -Post Debridement Size (cm) - Depth 0.2 0.2 0.2 -Total Square Cm 0.75 0.81 0.30 -Wound/Ulcer Outcome Healed- Not Healed Not Healed Epithelialized -Ulcer Cleansing Not Cleansed Rinsed/ Irrigated with Saline -Foul Odor after Cleansing No No No -Bioengineered Tissue No No No -Topical Lidocaine (%) 4 -Lidocaine (ml) 10 -Bleeding Controlled with NA Pressure Pressure -Treatment Response Procedure Procedure Not Procedure Tolerated Well Tolerated Well Tolerated Well 5. L ankle inferior cluster -Time 10:53 10:46 10:33 -Correct Patient Yes Yes Yes -Correct Side, Site, Position Yes Yes Yes -Correct Procedure Yes Yes Yes -Procedure Performed Yes Yes Yes -Type of Procedure Debridement Debridement Debridement -Clinical Debridement Subcutaneous Subcutaneous Subcutaneous -Post Debridement Size (cm) - Length 3.2 2.9 2.8 -Post Debridement Size (cm) - Width 4.2 1.1 1.0 -Post Debridement Size (cm) - Depth 0.3 0.3 0.2 -Total Square Cm 13.44 3.19 2.80 -Wound/Ulcer Outcome Not Healed Not Healed Not Healed -Ulcer Cleansing Rinsed/ Not Cleansed Rinsed/ Irrigated with Irrigated with Saline Saline -Foul Odor after Cleansing No No No -Bioengineered Tissue No No No -Topical Lidocaine (%) 4 -Lidocaine (ml) 5 -Bleeding Controlled with NA Pressure Pressure -Treatment Response Procedure Procedure Procedure Tolerated Well Tolerated Well Tolerated Well 4. L medial foot -Time 10:53 10:46 10:34 -Correct Patient Yes Yes Yes -Correct Side, Site, Position Yes Yes Yes -Correct Procedure Yes Yes Yes -Procedure Performed Yes Yes Yes -Type of Procedure Debridement Debridement Debridement -Clinical Debridement Subcutaneous Subcutaneous Subcutaneous -Post Debridement Size (cm) - Length 2.5 3.9 4.3 -Post Debridement Size (cm) - Width 1.1 5.2 5.4 -Post Debridement Size (cm) - Depth 0.3 0.3 0.3 -Total Square Cm 2.75 20.28 23.22 -Wound/Ulcer Outcome Not Healed Not Healed Not Healed -Ulcer Cleansing Rinsed/ Not Cleansed Rinsed/ Irrigated with Irrigated with Saline Saline -Foul Odor after Cleansing No No No -Bioengineered Tissue No No No -Injectable Lidocaine (%) 4 -Injectable Lidocaine w/ Epi (%) 5 -Bleeding Controlled with NA Pressure Pressure -Treatment Response Procedure Procedure Procedure Tolerated Well Tolerated Well Tolerated Well Pain Scale: 0-10 Numeric Is Patient Pain Free? Yes No Yes Wound debrided: Left dorsomedial foot Laterality: Left Type of Debridement: Excisional debridement Anesthesia Used: 4% Lidocaine Solution Depth: in the subcutaneous layer Percentage of wound debrided: 100 Instrument Used: 3mm curette Tissue Removed: Adherent slough, fibrin, necrotic tissue, hyperkeratotic tissue Severity: Fat Layer Exposed Amount of bleeding with debridement: Mild Bleeding Controlled with: Pressure Patient tolerated procedure well - Additional Wound Wound debrided: Left medial ankle Laterality: Left Type of Debridement: Excisional debridement Anesthesia Used: 4% Lidocaine Solution Depth: in the subcutaneous layer Percentage of wound debrided: 100 Instrument Used: 3mm curette Tissue Removed: Adherent slough, fibrin, necrotic tissue, hyperkeratotic tissue Severity: Fat Layer Exposed Amount of bleeding with debridement: Mild Bleeding Controlled with: Pressure Patient tolerated procedure: Patient tolerated procedure well - Additional Wound Wound debrided: Left anterior lower leg Laterality: Left Type of Debridement: Excisional debridement Anesthesia Used: 4% Lidocaine Solution Depth: in the subcutaneous layer Percentage of wound debrided: 100 Instrument Used: 3mm curette Tissue Removed: Adherent slough, fibrin, necrotic tissue, hyperkeratotic tissue Severity: Fat Layer Exposed Amount of bleeding with debridement: Mild Bleeding Controlled with: Pressure Patient tolerated procedure: Patient tolerated procedure well Assessment/Plan Active Problems Ulcer of left lower extremity with fat layer exposed (Acute) PVD (peripheral vascular disease) (Acute) Chronic venous insufficiency (Acute) Edema, lower extremity (Acute) Pain of left lower extremity (Acute) Delayed wound healing (Acute) Assessment: Right medial ankle ulcer resolved. Peripheral vascular occlusive disease. Nonhealing ulcers resolved. Edema Plan: Patient was carefully examined and evaluated today. Subcutaneous debridement was performed to each of the aforementioned ulcer sites as noted in the clinical panel again this week. Once complete, the ulcer sites were carefully cleansed and then dressed with Elvira to the bases followed by a dry sterile dressing and Tubigrip for compression. The patient is to continue the dressing changes in this manner on a daily basis. The importance of offloading the ulcer site was discussed at length with this patient again today. He says he is unable to completely stop working, but he does have the option for light duty. A note was written for the patient to be on light duty at work while being treated for open ulcers again this week. I stressed the importance of keeping pressure off of all of the ulcer sites. Patient was instructed that while not at work, he is to be off his feet as much as possible and to keep the areas elevated. The importance of compression was also discussed with this patient today. Culture results were reviewed and Dr. Farris with infectious disease was consulted and saw the patient last week. He feels that at this time, antibiotics are not warranted, and that the patient should continue to be monitored in case he needs antibiotics in the future. LEAS studies were ordered at previous visit, and we will evaluate the results once the studies are completed. I continue to recommend nutritional supplementation with a high-protein diet at this time in order to help optimize ulcer healing potential. Smoking cessation was stressed today. All signs and symptoms of local and systemic infection were discussed in great detail with the patient today and he was instructed to go to the emergency room immediately should he notice any of these. All questions were answered to the patient's satisfaction. Patient will follow-up in clinic in 1 week to check on progress, or sooner if needed.
--- NOTE | 2018-07-18 14:00 | PN.PCM_ITS ---
(1) Ulcer of left lower extremity with fat layer exposed Status: Acute Current Visit: Yes Code(s): L97.922 - Non-pressure chronic ulcer of unspecified part of left lower leg with fat layer exposed (2) PVD (peripheral vascular disease) Status: Acute Current Visit: Yes Code(s): I73.9 - Peripheral vascular disease, unspecified (3) Chronic venous insufficiency Status: Acute Current Visit: Yes Code(s): I87.2 - Venous insufficiency ( chronic) (peripheral) (4) Edema, lower extremity Status: Acute Current Visit: Yes Code(s): R60.0 - Localized edema (5) Pain of left lower extremity Status: Acute Current Visit: Yes Code(s): M79.605 - Pain in left leg (6) Delayed wound healing Status: Acute Current Visit: Yes Code(s): T14.8XXD - Other injury of unspecified body region, subsequent encounter Type of Wound Date of Service: 07/18/18 Chief Complaint: ulcers to the left lower leg/foot History of Wound: This is a 51-year-old white male presents to wound healing center with a long-standing history of chronic venous insufficiency, chronic venous hypertension, lower extremity edema, lower extremity pain, and 3 ulcer sites to left lower leg/foot. The patient has had multiple ulcerations in the lower extremities bilaterally, related to his chronic venous disease. He also has chronic venous stasis changes. The skin changes include hyperpigmentation. The patient has previously undergone endovenous laser ablation of the left and right great saphenous vein, the small saphenous vein, the left accessory saphenous vein, and an incompetent left calf information security specialist vein located 15 cm proximal to the left medial malleolus. He is currently wearing graduated compression stockings which are documented to be 20-30 mmHg compression, however , he says the ones he has on are about a year old. He has new ones at home that he has not been wearing. 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 Patient says that he noticed a small area start opening on the top of his left foot about 8-10 months ago. He says he tried to doctor this on his own with old wound care supplies. He says this continued to get slightly worse. Then, about 4 months ago, he noticed the area around the medial malleolus starting to break down, and that has slowly been getting worse too. He also has a small anterior lower leg ulcer. Nothing he has done on his own to treat these areas has helped. He decided he should finally come back to the wound healing center to see if he can get the areas to heal again. Progress of Wound: Ulcer sites appear fairly stable since last visit. Patient has continued with daily Elvira dressing changes. Patient denies any feelings of nausea, vomiting, fever, chills at this time. - Physical Exam Vital Signs Temp Pulse Resp BP 96.2 F L 80 16 150/96 H 07/18/18 09:56 07/18/18 09:56 07/18/18 09:56 07/18/18 09:56 General: Alert, Oriented x3, Cooperative, No apparent distress Extremities: No cyanosis, Capillary Refill Less than 3 Seconds, No Calf Tenderness - Negative Lakisha and Hough sign, Diminished Peripheral Pulses - DP pulses palpable and PT pulses nonpalpable, Edema - Lower extremity edema Skin: Ulcer/ Wound - Ulcer to the left dorsal medial foot, left medial ankle, and left anterior lower leg with fat layer exposed. The measurements of each ulcer site are listed below. The bases of each ulcer sites are noted to have adherent slough, fibrin, necrotic tissue, granular tissue and hyperkeratotic tissue. There continues to be no probing to bone, no tracking, no undermining, no surrounding or extending cellulitis, no purulence, no malodor, and no increase in warmth surrounding the ulcer sites today. Wound Measurements and Assessment WC - Nurse 1 - General Ulcer Measurement Start: 07/04/18 09:40 Freq: Status: Active Protocol: Activity Type Activity Date Activity User E-Sign Co-Sign Detail Recorded Client Recorded Date Recorded By Document 07/18/18 09:56 [id number] 07/18/18 10:06 07/18/18 09:56 Wound Center Nurse 1 [Ulcer Assessment] 6. L ankle superior -Combined with other wound No -Current Size (cm) - Length 0.9 -Current Size (cm) - Width 0.3 -Current Size (cm) - Depth 0.1 -Total Square Cm 0.27 -Photo Taken No -Epithelialization None Present -Tunneling No -Undermining/Tunneling No -Circular Undermining No -Exudate Amt None Present (0 %) -Wound Margin Distinct, Outline Attached -Granulation Amt None Present (0 %) -Slough/Fibrin Yes -Necrosis Amt None Present (0 %) -Necrotic Tissue Type Adherent Slough -Texture (Ara-wound Skin Appearance) Assessed Scarring -Moisture (Ara-wound Skin Appearance No Abnormality ) Assessed -Color (Ara-wound Skin Appearance) No Abnormality Assessed -Temperature (Ara-wound Skin No Abnormality Appearance) (Pt Warm) -Tenderness on Palpation (Ara-wound No Skin Appearance) -Ulcer Cleansing Rinsed/ Irrigated with Saline -Foul Odor after Cleansing No -Anesthetic Used 4% Lidocaine Solution 5. L ankle inferior cluster -Current Size (cm) - Length 2.9 -Current Size (cm) - Width 0.9 -Current Size (cm) - Depth 0.2 -Total Square Cm 2.61 -Photo Taken No -Epithelialization None Present -Tunneling No -Undermining/Tunneling No -Circular Undermining No -Exudate Amt Small (1-33%) -Exudate Type Serosanguineous -Wound Margin Distinct, Outline Attached -Granulation Amt None Present (0 %) -Slough/Fibrin Yes -Necrosis Amt None Present (0 %) -Necrotic Tissue Type Adherent Slough -Structure Exposed None/Limited to Skin Breakdown -Texture (Ara-wound Skin Appearance) Assessed Scarring -Moisture (Ara-wound Skin Appearance No Abnormality ) Assessed -Color (Ara-wound Skin Appearance) No Abnormality -Temperature (Ara-wound Skin No Abnormality Appearance) (Pt Warm) -Tenderness on Palpation (Ara-wound No Skin Appearance) -Ulcer Cleansing Rinsed/ Irrigated with Saline -Foul Odor after Cleansing No -Anesthetic Used 4% Lidocaine Solution 4. L medial foot -Combined with other wound No -Current Size (cm) - Length 4.7 -Current Size (cm) - Width 5.3 -Current Size (cm) - Depth 0.2 -Total Square Cm 24.91 -Photo Taken No -Epithelialization None Present -Tunneling No -Undermining/Tunneling No -Circular Undermining No -Exudate Amt Small (1-33%) -Exudate Type Serosanguineous -Wound Margin Distinct, Outline Attached -Granulation Amt None Present (0 %) -Granulation Quality N/A -Slough/Fibrin Yes -Necrosis Amt None Present (0 %) -Necrotic Tissue Type Adherent Slough -Texture (Ara-wound Skin Appearance) No Abnormality Assessed -Moisture (Ara-wound Skin Appearance No Abnormality ) Assessed -Color (Ara-wound Skin Appearance) No Abnormality Assessed -Temperature (Ara-wound Skin No Abnormality Appearance) (Pt Warm) -Tenderness on Palpation (Ara-wound No Skin Appearance) -Ulcer Cleansing Rinsed/ Irrigated with Saline -Foul Odor after Cleansing No -Anesthetic Used 4% Lidocaine Solution [Edema Assessment] -Lower Limb Edema Present No -Left Calf (cm) 34 -Left Ankle (cm) 25 WC - Nurse 2 - General Ulcer CM Notes Start: 07/04/18 09:40 Freq: Status: Active Protocol: Activity Type Activity Date Activity User E-Sign Co-Sign Detail Recorded Client Recorded Date Recorded By Document 07/18/18 10:32 DV [id number] 07/18/18 10:43 DV 07/18/18 10:32 Wound Center Nurse 2 [Procedure/Treatment] 6. L ankle superior -Time 10:32 -Correct Patient Yes -Correct Side, Site, Position Yes -Correct Procedure Yes -Procedure Performed Yes -Type of Procedure Debridement -Clinical Debridement Subcutaneous -Post Debridement Size (cm) - Length 1.0 -Post Debridement Size (cm) - Width 0.3 -Post Debridement Size (cm) - Depth 0.2 -Total Square Cm 0.30 -Wound/Ulcer Outcome Not Healed -Ulcer Cleansing Rinsed/ Irrigated with Saline -Foul Odor after Cleansing No -Bioengineered Tissue No -Bleeding Controlled with Pressure -Treatment Response Procedure Tolerated Well 5. L ankle inferior cluster -Time 10:33 -Correct Patient Yes -Correct Side, Site, Position Yes -Correct Procedure Yes -Procedure Performed Yes -Type of Procedure Debridement -Clinical Debridement Subcutaneous -Post Debridement Size (cm) - Length 2.8 -Post Debridement Size (cm) - Width 1.0 -Post Debridement Size (cm) - Depth 0.2 -Total Square Cm 2.80 -Wound/Ulcer Outcome Not Healed -Ulcer Cleansing Rinsed/ Irrigated with Saline -Foul Odor after Cleansing No -Bioengineered Tissue No -Bleeding Controlled with Pressure -Treatment Response Procedure Tolerated Well 4. L medial foot -Time 10:34 -Correct Patient Yes -Correct Side, Site, Position Yes -Correct Procedure Yes -Procedure Performed Yes -Type of Procedure Debridement -Clinical Debridement Subcutaneous -Post Debridement Size (cm) - Length 4.3 -Post Debridement Size (cm) - Width 5.4 -Post Debridement Size (cm) - Depth 0.3 -Total Square Cm 23.22 -Wound/Ulcer Outcome Not Healed -Ulcer Cleansing Rinsed/ Irrigated with Saline -Foul Odor after Cleansing No -Bioengineered Tissue No -Bleeding Controlled with Pressure -Treatment Response Procedure Tolerated Well [See Physician Procedure note for Specifics] Pain Scale: 0-10 Numeric [Pain] -Is Patient Pain Free? Yes Musculoskeletal: No Tenderness to Palpation of Joints or Extremities, Tenderness - Some slight tenderness with manipulation of some of the ulcer sites. Neurological: Sensory exam intact to light touch and pain Psych/Mental Status: Normal Affect, Appropriate Debridement Note Post-Debridement Measurements/Treatment WC - Nurse 2 - General Ulcer CM Notes Start: 07/04/18 09:40 Freq: Status: Active Protocol: Activity Type Activity Date Activity User E-Sign Co-Sign Detail Recorded Client Recorded Date Recorded By Document 07/04/18 10:53 [id number] 07/04/18 11:09 Document 07/11/18 10:44 [id number] 07/11/18 10:55 Document 07/18/18 10:32 DV [id number] 07/18/18 10:43 DV 07/04/18 07/11/18 07/18/18 10:53 10:44 10:32 Wound Center Nurse 2 6. L ankle superior -Time 10:53 10:46 10:32 -Correct Patient Yes Yes Yes -Correct Side, Site, Position Yes Yes Yes -Correct Procedure Yes Yes Yes -Procedure Performed Yes Yes Yes -Type of Procedure Debridement Debridement Debridement -Clinical Debridement Subcutaneous Subcutaneous Subcutaneous -Post Debridement Size (cm) - Length 2.5 2.7 1.0 -Post Debridement Size (cm) - Width 0.3 0.3 0.3 -Post Debridement Size (cm) - Depth 0.2 0.2 0.2 -Total Square Cm 0.75 0.81 0.30 -Wound/Ulcer Outcome Healed- Not Healed Not Healed Epithelialized -Ulcer Cleansing Not Cleansed Rinsed/ Irrigated with Saline -Foul Odor after Cleansing No No No -Bioengineered Tissue No No No -Topical Lidocaine (%) 4 -Lidocaine (ml) 10 -Bleeding Controlled with NA Pressure Pressure -Treatment Response Procedure Procedure Not Procedure Tolerated Well Tolerated Well Tolerated Well 5. L ankle inferior cluster -Time 10:53 10:46 10:33 -Correct Patient Yes Yes Yes -Correct Side, Site, Position Yes Yes Yes -Correct Procedure Yes Yes Yes -Procedure Performed Yes Yes Yes -Type of Procedure Debridement Debridement Debridement -Clinical Debridement Subcutaneous Subcutaneous Subcutaneous -Post Debridement Size (cm) - Length 3.2 2.9 2.8 -Post Debridement Size (cm) - Width 4.2 1.1 1.0 -Post Debridement Size (cm) - Depth 0.3 0.3 0.2 -Total Square Cm 13.44 3.19 2.80 -Wound/Ulcer Outcome Not Healed Not Healed Not Healed -Ulcer Cleansing Rinsed/ Not Cleansed Rinsed/ Irrigated with Irrigated with Saline Saline -Foul Odor after Cleansing No No No -Bioengineered Tissue No No No -Topical Lidocaine (%) 4 -Lidocaine (ml) 5 -Bleeding Controlled with NA Pressure Pressure -Treatment Response Procedure Procedure Procedure Tolerated Well Tolerated Well Tolerated Well 4. L medial foot -Time 10:53 10:46 10:34 -Correct Patient Yes Yes Yes -Correct Side, Site, Position Yes Yes Yes -Correct Procedure Yes Yes Yes -Procedure Performed Yes Yes Yes -Type of Procedure Debridement Debridement Debridement -Clinical Debridement Subcutaneous Subcutaneous Subcutaneous -Post Debridement Size (cm) - Length 2.5 3.9 4.3 -Post Debridement Size (cm) - Width 1.1 5.2 5.4 -Post Debridement Size (cm) - Depth 0.3 0.3 0.3 -Total Square Cm 2.75 20.28 23.22 -Wound/Ulcer Outcome Not Healed Not Healed Not Healed -Ulcer Cleansing Rinsed/ Not Cleansed Rinsed/ Irrigated with Irrigated with Saline Saline -Foul Odor after Cleansing No No No -Bioengineered Tissue No No No -Injectable Lidocaine (%) 4 -Injectable Lidocaine w/ Epi (%) 5 -Bleeding Controlled with NA Pressure Pressure -Treatment Response Procedure Procedure Procedure Tolerated Well Tolerated Well Tolerated Well Pain Scale: 0-10 Numeric Is Patient Pain Free? Yes No Yes Wound debrided: Left dorsomedial foot Laterality: Left Type of Debridement: Excisional debridement Anesthesia Used: 4% Lidocaine Solution Depth: in the subcutaneous layer Percentage of wound debrided: 100 Instrument Used: 3mm curette Tissue Removed: Adherent slough, fibrin, necrotic tissue, hyperkeratotic tissue Severity: Fat Layer Exposed Amount of bleeding with debridement: Mild Bleeding Controlled with: Pressure Patient tolerated procedure well - Additional Wound Wound debrided: Left medial ankle Laterality: Left Type of Debridement: Excisional debridement Anesthesia Used: 4% Lidocaine Solution Depth: in the subcutaneous layer Percentage of wound debrided: 100 Instrument Used: 3mm curette Tissue Removed: Adherent slough, fibrin, necrotic tissue, hyperkeratotic tissue Severity: Fat Layer Exposed Amount of bleeding with debridement: Mild Bleeding Controlled with: Pressure Patient tolerated procedure: Patient tolerated procedure well - Additional Wound Wound debrided: Left anterior lower leg Laterality: Left Type of Debridement: Excisional debridement Anesthesia Used: 4% Lidocaine Solution Depth: in the subcutaneous layer Percentage of wound debrided: 100 Instrument Used: 3mm curette Tissue Removed: Adherent slough, fibrin, necrotic tissue, hyperkeratotic tissue Severity: Fat Layer Exposed Amount of bleeding with debridement: Mild Bleeding Controlled with: Pressure Patient tolerated procedure: Patient tolerated procedure well Assessment/Plan Active Problems Ulcer of left lower extremity with fat layer exposed (Acute) PVD (peripheral vascular disease) (Acute) Chronic venous insufficiency (Acute) Edema, lower extremity (Acute) Pain of left lower extremity (Acute) Delayed wound healing (Acute) Assessment: Right medial ankle ulcer resolved. Peripheral vascular occlusive disease. Nonhealing ulcers resolved. Edema Plan: Patient was carefully examined and evaluated today. Subcutaneous debridement was performed to each of the aforementioned ulcer sites as noted in the clinical panel again this week. Once complete, the ulcer sites were carefully cleansed and then dressed with Elvira to the bases followed by a dry sterile dressing and Tubigrip for compression. The patient is to continue the dressing changes in this manner on a daily basis. The importance of offloading the ulcer site was discussed at length with this patient again today. He says he is unable to completely stop working, but he does have the option for light duty. A note was written for the patient to be on light duty at work while being treated for open ulcers again this week. I stressed the importance of keeping pressure off of all of the ulcer sites. Patient was instructed that while not at work, he is to be off his feet as much as possible and to keep the areas elevated. The importance of compression was also discussed with this patient today. Culture results were reviewed and Dr. Farris with infectious disease was consulted and saw the patient last week. He feels that at this time , antibiotics are not warranted, and that the patient should continue to be monitored in case he needs antibiotics in the future. LEAS studies were ordered at previous visit, and we will evaluate the results once the studies are completed. I continue to recommend nutritional supplementation with a high- protein diet at this time in order to help optimize ulcer healing potential. Smoking cessation was stressed today. All signs and symptoms of local and systemic infection were discussed in great detail with the patient today and he was instructed to go to the emergency room immediately should he notice any of these. All questions were answered to the patient's satisfaction. Patient will follow-up in clinic in 1 week to check on progress, or sooner if needed.
[2018-07-25 08:31] VITALS: BP 155/90; PULSE 87; RESP 14; TEMP 35.9
--- NOTE | 2018-07-25 08:58 | PCM.WC.PN ---
(1) Ulcer of left lower extremity with fat layer exposed Status: Acute Current Visit: Yes Code(s): L97.922 - Non-pressure chronic ulcer of unspecified part of left lower leg with fat layer exposed (2) PVD (peripheral vascular disease) Status: Acute Current Visit: Yes Code(s): I73.9 - Peripheral vascular disease, unspecified (3) Chronic venous insufficiency Status: Acute Current Visit: Yes Code(s): I87.2 - Venous insufficiency (chronic) (peripheral) (4) Edema, lower extremity Status: Acute Current Visit: Yes Code(s): R60.0 - Localized edema (5) Pain of left lower extremity Status: Acute Current Visit: Yes Code(s): M79.605 - Pain in left leg (6) Delayed wound healing Status: Acute Current Visit: Yes Code(s): T14.8XXD - Other injury of unspecified body region, subsequent encounter Type of Wound Chief Complaint: ulcers to the left lower leg/foot History of Wound: This is a 51-year-old white male presents to wound healing center with a long-standing history of chronic venous insufficiency, chronic venous hypertension, lower extremity edema, lower extremity pain, and 3 ulcer sites to left lower leg/foot. The patient has had multiple ulcerations in the lower extremities bilaterally, related to his chronic venous disease. He also has chronic venous stasis changes. The skin changes include hyperpigmentation. The patient has previously undergone endovenous laser ablation of the left and right great saphenous vein, the small saphenous vein, the left accessory saphenous vein, and an incompetent left calf dialysis patient care technician vein located 15 cm proximal to the left medial malleolus. He is currently wearing graduated compression stockings which are documented to be 20-30 mmHg compression, however, he says the ones he has on are about a year old. He has new ones at home that he has not been wearing. 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 Patient says that he noticed a small area start opening on the top of his left foot about 8-10 months ago. He says he tried to doctor this on his own with old wound care supplies. He says this continued to get slightly worse. Then, about 4 months ago, he noticed the area around the medial malleolus starting to break down, and that has slowly been getting worse too. He also has a small anterior lower leg ulcer. Nothing he has done on his own to treat these areas has helped. He decided he should finally come back to the wound healing center to see if he can get the areas to heal again. Progress of Wound: Ulcers stable. Patient has continued with daily Elvira dressing changes. Patient denies any feelings of nausea, vomiting, fever, chills at this time. - Physical Exam Vital Signs Temp Pulse Resp BP 96.6 F L 87 14 155/90 H 07/25/18 08:31 07/25/18 08:31 07/25/18 08:31 07/25/18 08:31 General: Alert, Oriented x3, Cooperative, No apparent distress Extremities: No cyanosis, Capillary Refill Less than 3 Seconds, No Calf Tenderness - Negative Lakisha and Hough sign, Diminished Peripheral Pulses - DP pulses palpable and PT pulses nonpalpable, Edema - Lower extremity edema Skin: Ulcer/ Wound - Ulcer to the left dorsal medial foot, left medial ankle, and left anterior lower leg with fat layer exposed. The measurements of each ulcer site are listed below. The bases of each ulcer site continued to have adherent slough, fibrin, granular tissue as well as surrounding hyperkeratotic tissue. There continues to be no probing to bone, no tracking, no undermining, no surrounding or extending cellulitis, no purulence, no malodor, no increase in warmth surrounding the ulcer sites again today. Wound Measurements and Assessment WC - Nurse 1 - General Ulcer Measurement Start: 07/04/18 09:40 Freq: Status: Active Protocol: Activity Type Activity Date Activity User E-Sign Co-Sign Detail Recorded Client Recorded Date Recorded By Document 07/25/18 08:31 [place] [id number] 07/25/18 08:36 [place] 07/25/18 08:31 Wound Center Nurse 1 [Ulcer Assessment] 6. L ankle superior -Combined with other wound No -Current Size (cm) - Length 0.6 -Current Size (cm) - Width 0.1 -Current Size (cm) - Depth 0.1 -Total Square Cm 0.06 -Photo Taken No -Epithelialization Small 1-33% -Tunneling No -Undermining/Tunneling No -Circular Undermining No -Exudate Amt Small (1-33%) -Exudate Type Serosanguineous -Wound Margin Flat & Intact -Granulation Amt Small (1-33%) -Granulation Quality Pale [place] -Slough/Fibrin Yes -Necrosis Amt Medium (34-66%) -Necrotic Tissue Type Adherent Slough -Texture (Ara-wound Skin Appearance) Assessed -Moisture (Ara-wound Skin Appearance Assessed ) -Color (Ara-wound Skin Appearance) Assessed -Temperature (Ara-wound Skin No Abnormality Appearance) (Pt Warm) -Tenderness on Palpation (Ara-wound No Skin Appearance) -Ulcer Cleansing Rinsed/ Irrigated with Saline -Foul Odor after Cleansing No -Anesthetic Used 4% Lidocaine Solution 5. L ankle inferior cluster -Combined with other wound No -Current Size (cm) - Length 5.8 -Current Size (cm) - Width 4.7 -Current Size (cm) - Depth 0.3 -Total Square Cm 27.26 -Photo Taken No -Epithelialization Small 1-33% -Tunneling No -Undermining/Tunneling No -Circular Undermining No -Exudate Amt Medium (34-66%) -Exudate Type Serosanguineous -Wound Margin Thickened & Rolled Under -Granulation Amt Medium (34-66%) -Granulation Quality Pale [place] Red -Necrosis Amt Medium (34-66%) -Necrotic Tissue Type Adherent Slough -Texture (Ara-wound Skin Appearance) Assessed Callus -Moisture (Ara-wound Skin Appearance Assessed ) -Color (Ara-wound Skin Appearance) Assessed Hemosiderin Staining -Temperature (Ara-wound Skin No Abnormality Appearance) (Pt Warm) -Tenderness on Palpation (Ara-wound Yes Skin Appearance) -Ulcer Cleansing Rinsed/ Irrigated with Saline -Foul Odor after Cleansing No -Anesthetic Used 4% Lidocaine Solution 4. L medial foot -Combined with other wound No -Current Size (cm) - Length 2.2 -Current Size (cm) - Width 0.9 -Current Size (cm) - Depth 0.2 -Total Square Cm 1.98 -Photo Taken No -Epithelialization Small 1-33% -Tunneling No -Undermining/Tunneling No -Circular Undermining No -Exudate Amt Small (1-33%) -Exudate Type Serosanguineous -Wound Margin Thickened & Rolled Under -Granulation Amt Medium (34-66%) -Granulation Quality Pale [place] Red -Necrosis Amt Medium (34-66%) -Necrotic Tissue Type Adherent Slough -Texture (Ara-wound Skin Appearance) Assessed Callus -Moisture (Ara-wound Skin Appearance Assessed ) -Color (Ara-wound Skin Appearance) Assessed Hemosiderin Staining -Temperature (Ara-wound Skin No Abnormality Appearance) (Pt Warm) -Tenderness on Palpation (Ara-wound No Skin Appearance) -Ulcer Cleansing Rinsed/ Irrigated with Saline -Foul Odor after Cleansing No -Anesthetic Used 4% Lidocaine Solution [Edema Assessment] -Left Calf (cm) 34.5 -Left Ankle (cm) 24 WC - Nurse 2 - General Ulcer CM Notes Start: 07/04/18 09:40 Freq: Status: Active Protocol: Activity Type Activity Date Activity User E-Sign Co-Sign Detail Recorded Client Recorded Date Recorded By Document 07/25/18 08:49 DV [id number] 07/25/18 08:54 DV 07/25/18 08:49 Wound Center Nurse 2 [Procedure/Treatment] 6. L ankle superior -Time 08:49 -Correct Patient Yes -Correct Side, Site, Position Yes -Correct Procedure Yes -Procedure Performed Yes -Type of Procedure Debridement -Clinical Debridement Subcutaneous -Post Debridement Size (cm) - Length 1.2 -Post Debridement Size (cm) - Width 0.2 -Post Debridement Size (cm) - Depth 0.2 -Total Square Cm 0.24 -Wound/Ulcer Outcome Not Healed -Bleeding Controlled with Pressure -Treatment Response Procedure Tolerated Well 5. L ankle inferior cluster -Time 08:50 -Correct Patient Yes -Correct Side, Site, Position Yes -Correct Procedure Yes -Procedure Performed Yes -Type of Procedure Debridement -Clinical Debridement Subcutaneous -Post Debridement Size (cm) - Length 4.5 -Post Debridement Size (cm) - Width 5.5 -Post Debridement Size (cm) - Depth 0.3 -Total Square Cm 24.75 -Wound/Ulcer Outcome Not Healed -Ulcer Cleansing Rinsed/ Irrigated with Saline -Foul Odor after Cleansing No -Bioengineered Tissue No -Bleeding Controlled with Pressure 4. L medial foot -Time 08:50 -Correct Patient Yes -Correct Side, Site, Position Yes -Correct Procedure Yes -Procedure Performed Yes -Type of Procedure Debridement -Clinical Debridement Subcutaneous -Post Debridement Size (cm) - Length 2.0 -Post Debridement Size (cm) - Width 1.0 -Post Debridement Size (cm) - Depth 0.2 -Total Square Cm 2.00 -Wound/Ulcer Outcome Not Healed -Ulcer Cleansing Rinsed/ Irrigated with Saline -Foul Odor after Cleansing No -Bioengineered Tissue No -Bleeding Controlled with Pressure -Treatment Response Procedure Tolerated Well [See Physician Procedure note for Specifics] Pain Scale: 0-10 Numeric [Pain] -Is Patient Pain Free? Yes Musculoskeletal: No Tenderness to Palpation of Joints or Extremities, Tenderness - With manipulation of some of the ulcer sites. Neurological: Sensory exam intact to light touch and pain Psych/Mental Status: Normal Affect, Appropriate Debridement Note Post-Debridement Measurements/Treatment WC - Nurse 2 - General Ulcer CM Notes Start: 07/04/18 09:40 Freq: Status: Active Protocol: Activity Type Activity Date Activity User E-Sign Co-Sign Detail Recorded Client Recorded Date Recorded By Document 07/04/18 10:53 [id number] 07/04/18 11:09 Document 07/11/18 10:44 [id number] 07/11/18 10:55 Document 07/18/18 10:32 DV [id number] 07/18/18 10:43 DV Document 07/25/18 08:49 DV [id number] 07/25/18 08:54 DV 07/04/18 07/11/18 07/18/18 10:53 10:44 10:32 Wound Center Nurse 2 6. L ankle superior -Time 10:53 10:46 10:32 -Correct Patient Yes Yes Yes -Correct Side, Site, Position Yes Yes Yes -Correct Procedure Yes Yes Yes -Procedure Performed Yes Yes Yes -Type of Procedure Debridement Debridement Debridement -Clinical Debridement Subcutaneous Subcutaneous Subcutaneous -Post Debridement Size (cm) - Length 2.5 2.7 1.0 -Post Debridement Size (cm) - Width 0.3 0.3 0.3 -Post Debridement Size (cm) - Depth 0.2 0.2 0.2 -Total Square Cm 0.75 0.81 0.30 -Wound/Ulcer Outcome Healed- Not Healed Not Healed Epithelialized -Ulcer Cleansing Not Cleansed Rinsed/ Irrigated with Saline -Foul Odor after Cleansing No No No -Bioengineered Tissue No No No -Topical Lidocaine (%) 4 -Lidocaine (ml) 10 -Bleeding Controlled with NA Pressure Pressure -Treatment Response Procedure Procedure Not Procedure Tolerated Well Tolerated Well Tolerated Well 5. L ankle inferior cluster -Time 10:53 10:46 10:33 -Correct Patient Yes Yes Yes -Correct Side, Site, Position Yes Yes Yes -Correct Procedure Yes Yes Yes -Procedure Performed Yes Yes Yes -Type of Procedure Debridement Debridement Debridement -Clinical Debridement Subcutaneous Subcutaneous Subcutaneous -Post Debridement Size (cm) - Length 3.2 2.9 2.8 -Post Debridement Size (cm) - Width 4.2 1.1 1.0 -Post Debridement Size (cm) - Depth 0.3 0.3 0.2 -Total Square Cm 13.44 3.19 2.80 -Wound/Ulcer Outcome Not Healed Not Healed Not Healed -Ulcer Cleansing Rinsed/ Not Cleansed Rinsed/ Irrigated with Irrigated with Saline Saline -Foul Odor after Cleansing No No No -Bioengineered Tissue No No No -Topical Lidocaine (%) 4 -Lidocaine (ml) 5 -Bleeding Controlled with NA Pressure Pressure -Treatment Response Procedure Procedure Procedure Tolerated Well Tolerated Well Tolerated Well 4. L medial foot -Time 10:53 10:46 10:34 -Correct Patient Yes Yes Yes -Correct Side, Site, Position Yes Yes Yes -Correct Procedure Yes Yes Yes -Procedure Performed Yes Yes Yes -Type of Procedure Debridement Debridement Debridement -Clinical Debridement Subcutaneous Subcutaneous Subcutaneous -Post Debridement Size (cm) - Length 2.5 3.9 4.3 -Post Debridement Size (cm) - Width 1.1 5.2 5.4 -Post Debridement Size (cm) - Depth 0.3 0.3 0.3 -Total Square Cm 2.75 20.28 23.22 -Wound/Ulcer Outcome Not Healed Not Healed Not Healed -Ulcer Cleansing Rinsed/ Not Cleansed Rinsed/ Irrigated with Irrigated with Saline Saline -Foul Odor after Cleansing No No No -Bioengineered Tissue No No No -Injectable Lidocaine (%) 4 -Injectable Lidocaine w/ Epi (%) 5 -Bleeding Controlled with NA Pressure Pressure -Treatment Response Procedure Procedure Procedure Tolerated Well Tolerated Well Tolerated Well Pain Scale: 0-10 Numeric Is Patient Pain Free? Yes No Yes 07/25/18 08:49 Wound Center Nurse 2 6. L ankle superior -Time 08:49 -Correct Patient Yes -Correct Side, Site, Position Yes -Correct Procedure Yes -Procedure Performed Yes -Type of Procedure Debridement -Clinical Debridement Subcutaneous -Post Debridement Size (cm) - Length 1.2 -Post Debridement Size (cm) - Width 0.2 -Post Debridement Size (cm) - Depth 0.2 -Total Square Cm 0.24 -Wound/Ulcer Outcome Not Healed -Ulcer Cleansing -Foul Odor after Cleansing -Bioengineered Tissue -Topical Lidocaine (%) -Lidocaine (ml) -Bleeding Controlled with Pressure -Treatment Response Procedure Tolerated Well 5. L ankle inferior cluster -Time 08:50 -Correct Patient Yes -Correct Side, Site, Position Yes -Correct Procedure Yes -Procedure Performed Yes -Type of Procedure Debridement -Clinical Debridement Subcutaneous -Post Debridement Size (cm) - Length 4.5 -Post Debridement Size (cm) - Width 5.5 -Post Debridement Size (cm) - Depth 0.3 -Total Square Cm 24.75 -Wound/Ulcer Outcome Not Healed -Ulcer Cleansing Rinsed/ Irrigated with Saline -Foul Odor after Cleansing No -Bioengineered Tissue No -Topical Lidocaine (%) -Lidocaine (ml) -Bleeding Controlled with Pressure -Treatment Response 4. L medial foot -Time 08:50 -Correct Patient Yes -Correct Side, Site, Position Yes -Correct Procedure Yes -Procedure Performed Yes -Type of Procedure Debridement -Clinical Debridement Subcutaneous -Post Debridement Size (cm) - Length 2.0 -Post Debridement Size (cm) - Width 1.0 -Post Debridement Size (cm) - Depth 0.2 -Total Square Cm 2.00 -Wound/Ulcer Outcome Not Healed -Ulcer Cleansing Rinsed/ Irrigated with Saline -Foul Odor after Cleansing No -Bioengineered Tissue No -Injectable Lidocaine (%) -Injectable Lidocaine w/ Epi (%) -Bleeding Controlled with Pressure -Treatment Response Procedure Tolerated Well Pain Scale: 0-10 Numeric Is Patient Pain Free? Yes Wound debrided: Left dorsomedial foot Laterality: Left Type of Debridement: Excisional debridement Anesthesia Used: 4% Lidocaine Solution Depth: in the subcutaneous layer Percentage of wound debrided: 100 Instrument Used: 3mm curette Tissue Removed: Adherent slough, fibrin, hyperkeratotic tissue Severity: Fat Layer Exposed Amount of bleeding with debridement: Mild Bleeding Controlled with: Pressure Patient tolerated procedure well - Additional Wound Wound debrided: Left medial ankle Laterality: Left Type of Debridement: Excisional debridement Anesthesia Used: 4% Lidocaine Solution Depth: in the subcutaneous layer Percentage of wound debrided: 100 Instrument Used: 3mm curette Tissue Removed: Adherent slough, fibrin, hyperkeratotic tissue Severity: Fat Layer Exposed Amount of bleeding with debridement: Mild Bleeding Controlled with: Pressure Patient tolerated procedure: Patient tolerated procedure well - Additional Wound Wound debrided: Left anterior lower leg Laterality: Left Type of Debridement: Excisional debridement Anesthesia Used: 4% Lidocaine Solution Depth: in the subcutaneous layer Percentage of wound debrided: 100 Instrument Used: 3mm curette Tissue Removed: Adherent slough, fibrin, hyperkeratotic tissue Severity: Fat Layer Exposed Amount of bleeding with debridement: Mild Bleeding Controlled with: Pressure Patient tolerated procedure: Patient tolerated procedure well Assessment/Plan Active Problems Ulcer of left lower extremity with fat layer exposed (Acute) PVD (peripheral vascular disease) (Acute) Chronic venous insufficiency (Acute) Edema, lower extremity (Acute) Pain of left lower extremity (Acute) Delayed wound healing (Acute) Assessment: Right medial ankle ulcer resolved. Peripheral vascular occlusive disease. Nonhealing ulcers resolved. Edema Plan: Patient was carefully examined and evaluated today. Subcutaneous debridement was performed to each of the aforementioned ulcer sites as noted in the clinical panel again this week. Once complete, the ulcer sites were carefully cleansed and then dressed with Elvira to the bases followed by a dry sterile dressing and Tubigrip for compression. The patient is to continue the dressing changes in this manner on a daily basis. We again stressed the importance of having the elvira touch the entire ulcer base and edges. The importance of offloading the ulcer site was discussed at length with this patient again today. He says he is unable to completely stop working, but he does have the option for light duty. A note was written for the patient to be on light duty at work while being treated for open ulcers again this week. I stressed the importance of keeping pressure off of all of the ulcer sites and how this will impact his healing potential. Patient was instructed that while not at work, he is to be off his feet as much as possible and to keep the areas elevated. The importance of compression was also discussed with this patient today. Culture results were reviewed and Dr. Farris with infectious disease was consulted and saw the patient at one of his previous visits. He felt at that time, antibiotics are not warranted, and that the patient should continue to be monitored in case he needs antibiotics in the future. LEAS studies were reviewed prior to patient's visit and the results are in the patient's chart. I continue to recommend nutritional supplementation with a high-protein diet at this time in order to help optimize ulcer healing potential. Smoking cessation was stressed today. Since the patient has been in treatment for a total of 4 weeks this time with no significant change, we will apply for puraply and apligraf. All signs and symptoms of local and systemic infection were discussed in great detail with the patient today and he was instructed to go to the emergency room immediately should he notice any of these. All questions were answered to the patient's satisfaction. Patient will follow-up in clinic in 1 week to check on progress, or sooner if needed.
--- NOTE | 2018-07-27 16:57 | LEAS ---
Arterial Study - Arterial Study Arterial Study: This is a 53-year-old male with a history of smoking. He presents with a chronic nonhealing wound to the left lower extremity. Suspecting the presence of atherosclerotic peripheral arterial occlusive disease, the patient was brought to the noninvasive vascular laboratory at this time for the purpose of bilateral noninvasive lower extremity arterial assessment. Doppler signal assessment was used to evaluate the pulses at ankle level bilaterally. The posterior tibial and dorsalis pedis pulses were triphasic bilaterally. Segmental limb pressures were obtained at ankle level bilaterally. The right ankle pressure, as determined by posterior tibial pulse, was measured at 164 mmHg. The right ankle pressure, as determined by dorsalis pedis pulse, was measured at 189 mmHg. The left ankle pressure, as determined by posterior tibial pulse, was measured at 161 mmHg. The left ankle pressure, as determined by dorsalis pedis pulse, was measured at 166 mmHg. Pulse?volume recordings were obtained bilaterally and segmentally. Waveform amplitudes appeared to be satisfactory at all levels bilaterally, including low thigh, calf, ankle, and digital levels. Resting ankle?brachial indices were calculated bilaterally. The resting right ankle?brachial index was calculated to be 1.29. The resting left ankle?brachial index was calculated to be 1.14. Impression: Based upon the findings of this resting noninvasive lower extremity arterial study, there is no evidence of significant atherosclerotic peripheral arterial occlusive disease in the lower extremities bilaterally. Triphasic waveforms are noted at ankle levels bilaterally. Resting ankle?brachial indices are bilaterally normal. In summary, this represents a normal resting noninvasive lower extremity arterial study bilaterally.
== END 2018-07-28 23:59 ==
LOC: WC 08:30
PROVIDERS: Family Provider Internal Medicine Infectious Disease; PCP Internal Medicine Infectious Disease; Visit Provider Podiatrist
DX: I83.223 Varicose veins of left lower extremity with both ulcer of ankle and inflammation (principal); L97.322 Non-pressure chronic ulcer of left ankle with fat layer exposed; R60.0 Localized edema; M79.605 Pain in left leg; L97.522 Non-pressure chronic ulcer of other part of left foot with fat layer exposed; L97.822 Non-pressure chronic ulcer of other part of left lower leg with fat layer exposed
CPT/HCPCS: 11042; 11045; 87070; 87075; 87077; 87186; 87205; 93923; 99213; G0463

== ENCOUNTER 2018-08-22 08:30 | Outpatient (RCR) | payer BC, SELFPAY ==
[2018-07-29 00:15] VITALS: BP 155/90; PULSE 87; RESP 14; TEMP 35.9
[2018-08-01 09:35] VITALS: BP 151/89; PULSE 86; RESP 16; TEMP 36.3
--- NOTE | 2018-08-01 12:59 | PN.PCM_ITS ---
(1) Ulcer of left lower extremity with fat layer exposed Status: Acute Current Visit: No Code(s): L97.922 - Non-pressure chronic ulcer of unspecified part of left lower leg with fat layer exposed (2) PVD (peripheral vascular disease) Status: Acute Current Visit: No Code(s): I73.9 - Peripheral vascular disease, unspecified (3) Chronic venous insufficiency Status: Acute Current Visit: No Code(s): I87.2 - Venous insufficiency (chronic) (peripheral) (4) Edema, lower extremity Status: Acute Current Visit: No Code(s): R60.0 - Localized edema (5) Pain of left lower extremity Status: Acute Current Visit: No Code(s): M79.605 - Pain in left leg (6) Delayed wound healing Status: Acute Current Visit: No Code(s): T14.8XXD - Other injury of unspecified body region, subsequent encounter Type of Wound Chief Complaint: ulcers to the left lower leg/foot History of Wound: This is a 51-year-old white male presents to wound healing center with a long-standing history of chronic venous insufficiency, chronic venous hypertension, lower extremity edema, lower extremity pain, and 3 ulcer sites to left lower leg/foot. The patient has had multiple ulcerations in the lower extremities bilaterally, related to his chronic venous disease. He also has chronic venous stasis changes. The skin changes include hyperpigmentation. The patient has previously undergone endovenous laser ablation of the left and right great saphenous vein, the small saphenous vein, the left accessory saphenous vein, and an incompetent left calf caterpillar driver vein located 15 cm p roximal to the left medial malleolus. He is currently wearing graduated compression stockings which are documented to be 20-30 mmHg compression, however, he says the ones he has on are about a year old. He has new ones at home that he has not been wearing. 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 Patient says that he noticed a small area start opening on the top of his left foot about 8-10 months ago. He says he tried to doctor this on his own with old wound care supplies. He says this continued to get slightly worse. Then, about 4 months ago, he noticed the area around the medial malleolus starting to break down, and that has slowly been getting worse too. He also has a small anterior lower leg ulcer. Nothing he has done on his own to treat these areas has helped. He decided he should finally come back to the wound healing center to see if he can get the areas to heal again. Progress of Wound: Ulcers stable. Patient has continued with daily Elvira dressing changes. Patient denies any feelings of nausea, vomiting, fever, chills at this time. - Physical Exam Vital Signs Temp Pulse Resp BP 97.3 F L 86 16 151/89 H 08/01/18 09:35 08/01/18 09:35 08/01/18 09:35 08/01/18 09:35 General: Alert, Oriented x3, Cooperative, No apparent distress Extremities: Capillary Refill Less than 3 Seconds, No Calf Tenderness - Negative Lakisha and Hough sign, Diminished Peripheral Pulses - DP pulses palpable and PT pulses nonpalpable, Edema - Lower extremity edema Skin: Ulcer/ Wound - Ulcer to the left dorsal medial foot, left medial ankle, and left anterior lower leg with fat layer exposed. Each ulcer site has remained relatively stable without significant improvement this week. The bases of each ulcer site continue to show adherent slough, fibrin, granular tissue as well as some slight surrounding hyperkeratotic tissue. There continues to be no probing to bone, no tracking, no undermining, no surrounding cellulitis, no purulence, no malodor, no increase in warmth. Wound Measurements and Assessment WC - Nurse 1 - General Ulcer Measurement Start: 08/01/18 09:35 Freq: Status: Active Protocol: Activity Type Activity Date Activity User E-Sign Co-Sign Detail Recorded Client Recorded Date Recorded By Document 08/01/18 09:35 [id number] 08/01/18 09:44 08/01/18 09:35 Wound Center Nurse 1 [Ulcer Assessment] 6. L ankle superior -Combined with other wound No -Current Size (cm) - Length 1.1 -Current Size (cm) - Width 0.1 -Current Size (cm) - Depth 0.1 -Total Square Cm 0.11 -Date of Last Picture (Recall this 08/01/18 field) -Photo Taken Yes -Epithelialization Medium 34-66% -Tunneling No -Undermining/Tunneling No -Circular Undermining No -Exudate Amt None Present (0 %) -Wound Margin Distinct, Outline Attached -Granulation Amt None Present (0 %) -Granulation Quality N/A -Slough/Fibrin Yes -Necrosis Amt None Present (0 %) -Necrotic Tissue Type Adherent Slough -Texture (Ara-wound Skin Appearance) No Abnormality Assessed -Moisture (Ara-wound Skin Appearance Assessed ) Dry/Scaly -Color (Ara-wound Skin Appearance) No Abnormality Assessed -Temperature (Ara-wound Skin No Abnormality Appearance) (Pt Warm) -Tenderness on Palpation (Ara-wound No Skin Appearance) -Ulcer Cleansing Rinsed/ Irrigated with Saline -Foul Odor after Cleansing No -Anesthetic Used 4% Lidocaine Solution 5. L ankle inferior cluster -Combined with other wound No -Current Size (cm) - Length 4.9 -Current Size (cm) - Width 5.9 -Current Size (cm) - Depth 0.3 -Total Square Cm 28.91 -Date of Last Picture (Recall this 08/01/18 field) -Photo Taken Yes -Epithelialization None Present -Tunneling No -Undermining/Tunneling No -Circular Undermining No -Exudate Amt Medium (34-66%) -Exudate Type Serosanguineous -Wound Margin Distinct, Outline Attached -Granulation Amt Small (1-33%) -Granulation Quality Pale Killen -Slough/Fibrin Yes -Necrosis Amt None Present (0 %) -Necrotic Tissue Type Adherent Slough -Structure Exposed None/Limited to Skin Breakdown -Texture (Ara-wound Skin Appearance) No Abnormality Assessed -Moisture (Ara-wound Skin Appearance No Abnormality ) Assessed -Color (Ara-wound Skin Appearance) No Abnormality Assessed -Temperature (Ara-wound Skin No Abnormality Appearance) (Pt Warm) -Tenderness on Palpation (Ara-wound No Skin Appearance) -Ulcer Cleansing Rinsed/ Irrigated with Saline -Foul Odor after Cleansing No -Anesthetic Used 4% Lidocaine Solution 4. L medial foot -Combined with other wound No -Current Size (cm) - Length 1.8 -Current Size (cm) - Width 1 -Current Size (cm) - Depth 0.2 -Total Square Cm 1.8 -Date of Last Picture (Recall this 08/01/18 field) -Photo Taken Yes -Epithelialization None Present -Tunneling No -Undermining/Tunneling No -Circular Undermining No -Exudate Amt Medium (34-66%) -Exudate Type Serosanguineous -Wound Margin Distinct, Outline Attached -Granulation Amt Medium (34-66%) -Granulation Quality Pale Killen -Slough/Fibrin Yes -Necrosis Amt None Present (0 %) -Necrotic Tissue Type Adherent Slough -Structure Exposed None/Limited to Skin Breakdown -Texture (Ara-wound Skin Appearance) No Abnormality Assessed -Moisture (Ara-wound Skin Appearance No Abnormality ) Assessed -Color (Ara-wound Skin Appearance) No Abnormality Assessed -Temperature (Ara-wound Skin No Abnormality Appearance) (Pt Warm) -Tenderness on Palpation (Ara-wound No Skin Appearance) -Ulcer Cleansing Rinsed/ Irrigated with Saline -Foul Odor after Cleansing No -Anesthetic Used 4% Lidocaine Solution [Edema Assessment] -Lower Limb Edema Present No -Left Calf (cm) 32.5 -Left Ankle (cm) 25 WC - Nurse 2 - General Ulcer CM Notes Start: 08/01/18 09:35 Freq: Status: Active Protocol: Activity Type Activity Date Activity User E-Sign Co-Sign Detail Recorded Client Recorded Date Recorded By Document 08/01/18 09:59 DV [id number] 08/01/18 10:04 DV 08/01/18 09:59 Wound Center Nurse 2 [Procedure/Treatment] 6. L ankle superior -Time 10:01 -Correct Patient Yes -Correct Side, Site, Position Yes -Correct Procedure Yes -Procedure Performed Yes -Type of Procedure Debridement -Clinical Debridement Subcutaneous -Post Debridement Size (cm) - Length 1.2 -Post Debridement Size (cm) - Width 0.2 -Post Debridement Size (cm) - Depth 0.2 -Total Square Cm 0.24 -Wound/Ulcer Outcome Not Healed -Ulcer Cleansing Rinsed/ Irrigated with Saline -Foul Odor after Cleansing No -Bioengineered Tissue No -Bleeding Controlled with Pressure -Treatment Response Procedure Tolerated Well 5. L ankle inferior cluster -Time 10:01 -Correct Patient Yes -Correct Side, Site, Position Yes -Correct Procedure Yes -Procedure Performed Yes -Type of Procedure Debridement -Clinical Debridement Subcutaneous -Post Debridement Size (cm) - Length 4.9 -Post Debridement Size (cm) - Width 5.6 -Post Debridement Size (cm) - Depth 0.3 -Total Square Cm 27.44 -Wound/Ulcer Outcome Not Healed -Ulcer Cleansing Rinsed/ Irrigated with Saline -Foul Odor after Cleansing No -Bioengineered Tissue No -Bleeding Controlled with Pressure -Treatment Response Procedure Tolerated Well 4. L medial foot -Time 10:00 -Correct Patient Yes -Correct Side, Site, Position Yes -Correct Procedure Yes -Procedure Performed Yes -Type of Procedure Debridement -Clinical Debridement Subcutaneous -Post Debridement Size (cm) - Length 2.0 -Post Debridement Size (cm) - Width 1.0 -Post Debridement Size (cm) - Depth 0.2 -Total Square Cm 2.00 -Wound/Ulcer Outcome Not Healed -Ulcer Cleansing Rinsed/ Irrigated with Saline -Foul Odor after Cleansing No -Bioengineered Tissue No -Bleeding Controlled with Pressure -Treatment Response Procedure Tolerated Well [See Physician Procedure note for Specifics] Pain Scale: 0-10 Numeric [Pain] -Is Patient Pain Free? Yes Musculoskeletal: No Tenderness to Palpation of Joints or Extremities, Tenderness - Some tenderness with manipulation of ulcer site Neurological: Sensory exam intact to light touch and pain Psych/Mental Status: Normal Affect, Appropriate Debridement Note Post-Debridement Measurements/Treatment WC - Nurse 2 - General Ulcer CM Notes Start: 08/01/18 09:35 Freq: Status: Active Protocol: Activity Type Activity Date Activity User E-Sign Co-Sign Detail Recorded Client Recorded Date Recorded By Document 08/01/18 09:59 DV [id number] 08/01/18 10:04 DV 08/01/18 09:59 Wound Center Nurse 2 6. L ankle superior -Time 10:01 -Correct Patient Yes -Correct Side, Site, Position Yes -Correct Procedure Yes -Procedure Performed Yes -Type of Procedure Debridement -Clinical Debridement Subcutaneous -Post Debridement Size (cm) - Length 1.2 -Post Debridement Size (cm) - Width 0.2 -Post Debridement Size (cm) - Depth 0.2 -Total Square Cm 0.24 -Wound/Ulcer Outcome Not Healed -Ulcer Cleansing Rinsed/ Irrigated with Saline -Foul Odor after Cleansing No -Bioengineered Tissue No -Bleeding Controlled with Pressure -Treatment Response Procedure Tolerated Well 5. L ankle inferior cluster -Time 10:01 -Correct Patient Yes -Correct Side, Site, Position Yes -Correct Procedure Yes -Procedure Performed Yes -Type of Procedure Debridement -Clinical Debridement Subcutaneous -Post Debridement Size (cm) - Length 4.9 -Post Debridement Size (cm) - Width 5.6 -Post Debridement Size (cm) - Depth 0.3 -Total Square Cm 27.44 -Wound/Ulcer Outcome Not Healed -Ulcer Cleansing Rinsed/ Irrigated with Saline -Foul Odor after Cleansing No -Bioengineered Tissue No -Bleeding Controlled with Pressure -Treatment Response Procedure Tolerated Well 4. L medial foot -Time 10:00 -Correct Patient Yes -Correct Side, Site, Position Yes -Correct Procedure Yes -Procedure Performed Yes -Type of Procedure Debridement -Clinical Debridement Subcutaneous -Post Debridement Size (cm) - Length 2.0 -Post Debridement Size (cm) - Width 1.0 -Post Debridement Size (cm) - Depth 0.2 -Total Square Cm 2.00 -Wound/Ulcer Outcome Not Healed -Ulcer Cleansing Rinsed/ Irrigated with Saline -Foul Odor after Cleansing No -Bioengineered Tissue No -Bleeding Controlled with Pressure -Treatment Response Procedure Tolerated Well Pain Scale: 0-10 Numeric Is Patient Pain Free? Yes Wound debrided: Left dorsomedial foot Laterality: Left Type of Debridement: Excisional debridement Anesthesia Used: 4% Lidocaine Solution Depth: in the subcutaneous layer Percentage of wound debrided: 100 Instrument Used: 3mm curette Tissue Removed: Adherent slough, fibrin, hyperkeratotic tissue Severity: Fat Layer Exposed Amount of bleeding with debridement: Mild Bleeding Controlled with: Pressure Patient tolerated procedure well - Additional Wound Wound debrided: Left medial ankle Laterality: Left Type of Debridement: Excisional debridement Anesthesia Used: 4% Lidocaine Solution Depth: in the subcutaneous layer Percentage of wound debrided: 100 Instrument Used: 3mm curette Tissue Removed: Adherent slough, fibrin, hyperkeratotic tissue Severity: Fat Layer Exposed Amount of bleeding with debridement: Mild Bleeding Controlled with: Pressure Patient tolerated procedure: Patient tolerated procedure well - Additional Wound Wound debrided: Left anterior lower leg Laterality: Left Type of Debridement: Excisional debridement Anesthesia Used: 4% Lidocaine Solution Depth: in the subcutaneous layer Percentage of wound debrided: 100 Instrument Used: 3mm curette Tissue Removed: Adherent slough, fibrin, hyperkeratotic tissue Severity: Fat Layer Exposed Amount of bleeding with debridement: Mild Bleeding Controlled with: Pressure Patient tolerated procedure: Patient tolerated procedure well Assessment/Plan Assessment: Right medial ankle ulcer resolved. Peripheral vascular occlusive disease. Nonhealing ulcers resolved. Edema Plan: Patient was carefully examined and evaluated today. Subcutaneous debridement was performed to each of the aforementioned ulcer sites as noted in the clinical panel again this week. Once complete, the ulcer sites were carefully cleansed and then dressed with Elvira to the bases followed by a dry sterile dressing and Tubigrip for compression. The patient is to continue the dressing changes in this manner on a daily basis. The importance of offloading the ulcer site was discussed at length with this patient again today. He says he is unable to completely stop working, but he does have the option for light duty. He is to continue with this. I stressed the importance of keeping pressure off of all of the ulcer sites and how this will impact his healing potential. Patient was instructed that while not at work, he is to be off his feet as much as possible and to keep the areas elevated. The importance of compression was also discussed with this patient today. Culture results were reviewed and Dr. Farris with infectious disease was consulted and saw the patient at one of his previous visits. He felt at that time, antibiotics are not warranted, and that the patient should continue to be monitored in case he needs antibiotics in the future. At this time, we will again consult Dr. Farris to get his recommendation due to the slow progress being seen thus far. LEAS studies were reviewed prior to patient's visit and the results are in the patient's chart. I continue to recommend nutritional supplementation with a high-protein diet at this time in order to help optimize ulcer healing potential. Smoking cessation was stressed again today. Since the patient has been in treatment for a total of 4 weeks this time with no significant change, we will apply for skin substitute. All signs and symptoms of local and systemic infection were discussed in great detail with the patient today and he was instructed to go to the emergency room immediately should he notice any of these. All questions were answered to the patient's satisfaction. Patient will follow-up in clinic in 1 week to check on progress, or sooner if needed.
[2018-08-08 09:23] VITALS: BP 148/79; PULSE 81; RESP 18; TEMP 36.4
--- NOTE | 2018-08-08 10:06 | PN.PCM_ITS ---
(1) Ulcer of left lower extremity with fat layer exposed Status: Acute Current Visit: No Code(s): L97.922 - Non-pressure chronic ulcer of unspecified part of left lower leg with fat layer exposed (2) PVD (peripheral vascular disease) Status: Acute Current Visit: No Code(s): I73.9 - Peripheral vascular disease, unspecified (3) Chronic venous insufficiency Status: Acute Current Visit: No Code(s): I87.2 - Venous insufficiency (chronic) (peripheral) (4) Edema, lower extremity Status: Acute Current Visit: No Code(s): R60.0 - Localized edema (5) Pain of left lower extremity Status: Acute Current Visit: No Code(s): M79.605 - Pain in left leg (6) Delayed wound healing Status: Acute Current Visit: No Code(s): T14.8XXD - Other injury of unspecified body region, subsequent encounter Type of Wound Chief Complaint: ulcers to the left lower leg/foot History of Wound: This is a 51-year-old white male presents to wound healing center with a long-standing history of chronic venous insufficiency, chronic venous hypertension, lower extremity edema, lower extremity pain, and 3 ulcer sites to left lower leg/foot. The patient has had multiple ulcerations in the lower extremities bilaterally, related to his chronic venous disease. He also has chronic venous stasis changes. The skin changes include hyperpigmentation. The patient has previously undergone endovenous laser ablation of the left and right great saphenous vein, the small saphenous vein, the left accessory saphenous vein, and an incompetent left calf program consultant vein located 15 cm p roximal to the left medial malleolus. He is currently wearing graduated compression stockings which are documented to be 20-30 mmHg compression, however, he says the ones he has on are about a year old. He has new ones at home that he has not been wearing. 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 Patient says that he noticed a small area start opening on the top of his left foot about 8-10 months ago. He says he tried to doctor this on his own with old wound care supplies. He says this continued to get slightly worse. Then, about 4 months ago, he noticed the area around the medial malleolus starting to break down, and that has slowly been getting worse too. He also has a small anterior lower leg ulcer. Nothing he has done on his own to treat these areas has helped. He decided he should finally come back to the wound healing center to see if he can get the areas to heal again. Progress of Wound: Ulcers remain fairly stable. Patient has continued with daily Elvira dressing changes. Patient denies any feelings of nausea, vomiting, fever, chills at this time. - Physical Exam Vital Signs Temp Pulse Resp BP 97.6 F L 81 18 148/79 H 08/08/18 09:23 08/08/18:08/08/18:08/08/18:23 General: Alert, Oriented x3, Cooperative, No apparent distress Extremities: Capillary Refill Less than 3 Seconds, No Calf Tenderness - Negative Lakisha and Hough sign, Diminished Peripheral Pulses - DP pulses palpable and PT pulses nonpalpable, Edema - Some lower extremity edema appreciated Skin: Ulcer/ Wound - Ulcer to the left dorsomedial foot, left medial ankle, and left anterior lower leg with fat layer exposed. Ulcers remain fairly stable compared to last week with various slight enlargement of the left medial ankle ulcer this week. The bases of each ulcer site continue to to show adherent slough, fibrin, granular tissue as well as some slight surrounding hyperkeratotic tissue. There continues to be no probing to bone, no tracking, no undermining, no surrounding or extending cellulitis, no purulence, no malodor, no increase in warmth. Wound Measurements and Assessment WC - Nurse 1 - General Ulcer Measurement Start: 08/01/18 09:35 Freq: Status: Active Protocol: Activity Type Activity Date Activity User E-Sign Co-Sign Detail Recorded Client Recorded Date Recorded By Document 08/08/18: [id number] 08/08/18 09:29 08/08/18 09:23 Wound Center Nurse 1 [Ulcer Assessment] #6 LEFT ANKLE- SUPERIOR -Combined with other wound No -Current Size (cm) - Length 0.1 -Current Size (cm) - Width 0.1 -Current Size (cm) - Depth 0.1 -Total Square Cm 0.01 -Photo Taken No -Epithelialization Small 1-33% -Tunneling No -Undermining/Tunneling No -Circular Undermining No -Classification - Thickness Full Thickness without Exposed Support Structure -Exudate Amt None Present (0 %) -Wound Margin Distinct, Outline Attached -Granulation Amt None Present (0 %) -Granulation Quality N/A -Slough/Fibrin Yes -Necrosis Amt Large (67-100%) -Necrotic Tissue Type Adherent Slough -Structure Exposed Fascia Fat Layer Exposed -Texture (Ara-wound Skin Appearance) Assessed Friable Scarring -Moisture (Ara-wound Skin Appearance Dry/Scaly ) -Color (Ara-wound Skin Appearance) Assessed Hemosiderin Staining -Temperature (Ara-wound Skin No Abnormality Appearance) (Pt Warm) -Tenderness on Palpation (Ara-wound No Skin Appearance) -Ulcer Cleansing Rinsed/ Irrigated with Saline -Foul Odor after Cleansing No -Anesthetic Used 4% Lidocaine Solution #4 LEFT ANKLE -Combined with other wound No -Current Size (cm) - Length 1.0 -Current Size (cm) - Width 2.0 -Current Size (cm) - Depth 0.1 -Total Square Cm 2.00 -Photo Taken No -Epithelialization Small 1-33% -Tunneling No -Undermining/Tunneling No -Circular Undermining No -Classification - Thickness Full Thickness without Exposed Support Structure -Exudate Amt Medium (34-66%) -Exudate Type Serosanguineous -Wound Margin Fibrotic Scar, Thickened Scar -Granulation Amt Medium (34-66%) -Granulation Quality Red -Slough/Fibrin Yes -Necrosis Amt Medium (34-66%) -Necrotic Tissue Type Adherent Slough -Structure Exposed Fascia Fat Layer Exposed -Texture (Ara-wound Skin Appearance) Assessed Friable Scarring -Moisture (Ara-wound Skin Appearance No Abnormality ) Assessed -Color (Ara-wound Skin Appearance) Assessed Hemosiderin Staining -Temperature (Ara-wound Skin No Abnormality Appearance) (Pt Warm) -Tenderness on Palpation (Ara-wound No Skin Appearance) -Ulcer Cleansing Rinsed/ Irrigated with Saline -Foul Odor after Cleansing No -Anesthetic Used 4% Lidocaine Solution #5 LEFT MEDIAL FOOT- (ABOVE ARCH) -Combined with other wound No -Current Size (cm) - Length 5.0 -Current Size (cm) - Width 4.6 -Current Size (cm) - Depth 0.3 -Total Square Cm 23.00 -Photo Taken No -Epithelialization Small 1-33% -Tunneling No -Undermining/Tunneling No -Circular Undermining No -Classification - Thickness Full Thickness without Exposed Support Structure -Exudate Amt Medium (34-66%) -Exudate Type Serosanguineous -Wound Margin Fibrotic Scar, Thickened Scar -Granulation Amt Medium (34-66%) -Granulation Quality Red -Slough/Fibrin Yes -Necrosis Amt Medium (34-66%) -Necrotic Tissue Type Adherent Slough -Structure Exposed Fascia Fat Layer Exposed -Texture (Ara-wound Skin Appearance) Assessed Friable Scarring -Moisture (Ara-wound Skin Appearance No Abnormality ) Assessed -Color (Ara-wound Skin Appearance) Assessed Erythema -Temperature (Ara-wound Skin No Abnormality Appearance) (Pt Warm) -Tenderness on Palpation (Ara-wound No Skin Appearance) -Ulcer Cleansing Rinsed/ Irrigated with Saline -Foul Odor after Cleansing No -Anesthetic Used 4% Lidocaine Solution [Edema Assessment] -Lower Limb Edema Present Yes -Left Calf (cm) 34.8 -Left Ankle (cm) 24.0 WC - Nurse 2 - General Ulcer CM Notes Start: 08/01/18 09:35 Freq: Status: Active Protocol: Activity Type Activity Date Activity User E-Sign Co-Sign Detail Recorded Client Recorded Date Recorded By Document 08/08/18 09:40 DV [id number] 08/08/18 09:48 DV 08/08/18 09:40 Wound Center Nurse 2 [Procedure/Treatment] #6 LEFT ANKLE- SUPERIOR -Time 09:41 -Correct Patient Yes -Correct Side, Site, Position Yes -Correct Procedure Yes -Procedure Performed Yes -Type of Procedure Debridement -Clinical Debridement Subcutaneous -Post Debridement Size (cm) - Length 1.0 -Post Debridement Size (cm) - Width 0.2 -Post Debridement Size (cm) - Depth 0.2 -Total Square Cm 0.20 -Wound/Ulcer Outcome Not Healed -Ulcer Cleansing Rinsed/ Irrigated with Saline -Foul Odor after Cleansing No -Bioengineered Tissue No -Bleeding Controlled with Pressure -Treatment Response Procedure Tolerated Well #4 LEFT ANKLE -Time 09:45 -Correct Patient Yes -Correct Side, Site, Position Yes -Correct Procedure Yes -Procedure Performed Yes -Type of Procedure Debridement -Clinical Debridement Subcutaneous -Post Debridement Size (cm) - Length 5.2 -Post Debridement Size (cm) - Width 6.8 -Post Debridement Size (cm) - Depth 0.3 -Total Square Cm 35.36 -Wound/Ulcer Outcome Not Healed -Bleeding Controlled with Pressure -Treatment Response Procedure Tolerated Well #5 LEFT MEDIAL FOOT- (ABOVE ARCH) -Time 09:42 -Correct Patient Yes -Correct Side, Site, Position Yes -Correct Procedure Yes -Procedure Performed Yes -Type of Procedure Debridement -Clinical Debridement Subcutaneous -Post Debridement Size (cm) - Length 1.8 -Post Debridement Size (cm) - Width 1.0 -Post Debridement Size (cm) - Depth 0.1 -Total Square Cm 1.80 -Wound/Ulcer Outcome Not Healed -Ulcer Cleansing Rinsed/ Irrigated with Saline -Foul Odor after Cleansing No -Bleeding Controlled with Pressure -Treatment Response Procedure Tolerated Well [See Physician Procedure note for Specifics] Pain Scale: 0-10 Numeric [Pain] -Is Patient Pain Free? Yes Musculoskeletal: No Tenderness to Palpation of Joints or Extremities, Tenderness - Some tenderness with manipulation of ulcer sites Neurological: Sensory exam intact to light touch and pain Psych/Mental Status: Normal Affect, Appropriate Debridement Note Post-Debridement Measurements/Treatment WC - Nurse 2 - General Ulcer CM Notes Start: 08/01/18 09:35 Freq: Status: Active Protocol: Activity Type Activity Date Activity User E-Sign Co-Sign Detail Recorded Client Recorded Date Recorded By Document 08/01/18 09:59 DV [id number] 08/01/18 10:04 DV Document 08/08/18 09:40 DV [id number] 08/08/18 09:48 DV 08/01/18 08/08/18 09:59 09:40 Wound Center Nurse 2 #6 LEFT ANKLE- SUPERIOR -Time 10:01 09:41 -Correct Patient Yes Yes -Correct Side, Site, Position Yes Yes -Correct Procedure Yes Yes -Procedure Performed Yes Yes -Type of Procedure Debridement Debridement -Clinical Debridement Subcutaneous Subcutaneous -Post Debridement Size (cm) - Length 1.2 1.0 -Post Debridement Size (cm) - Width 0.2 0.2 -Post Debridement Size (cm) - Depth 0.2 0.2 -Total Square Cm 0.24 0.20 -Wound/Ulcer Outcome Not Healed Not Healed -Ulcer Cleansing Rinsed/ Rinsed/ Irrigated with Irrigated with Saline Saline -Foul Odor after Cleansing No No -Bioengineered Tissue No No -Bleeding Controlled with Pressure Pressure -Treatment Response Procedure Procedure Tolerated Well Tolerated Well #4 LEFT ANKLE -Time 10:01 09:45 -Correct Patient Yes Yes -Correct Side, Site, Position Yes Yes -Correct Procedure Yes Yes -Procedure Performed Yes Yes -Type of Procedure Debridement Debridement -Clinical Debridement Subcutaneous Subcutaneous -Post Debridement Size (cm) - Length 4.9 5.2 -Post Debridement Size (cm) - Width 5.6 6.8 -Post Debridement Size (cm) - Depth 0.3 0.3 -Total Square Cm 27.44 35.36 -Wound/Ulcer Outcome Not Healed Not Healed -Ulcer Cleansing Rinsed/ Irrigated with Saline -Foul Odor after Cleansing No -Bioengineered Tissue No -Bleeding Controlled with Pressure Pressure -Treatment Response Procedure Procedure Tolerated Well Tolerated Well #5 LEFT MEDIAL FOOT- (ABOVE ARCH) -Time 10:00 09:42 -Correct Patient Yes Yes -Correct Side, Site, Position Yes Yes -Correct Procedure Yes Yes -Procedure Performed Yes Yes -Type of Procedure Debridement Debridement -Clinical Debridement Subcutaneous Subcutaneous -Post Debridement Size (cm) - Length 2.0 1.8 -Post Debridement Size (cm) - Width 1.0 1.0 -Post Debridement Size (cm) - Depth 0.2 0.1 -Total Square Cm 2.00 1.80 -Wound/Ulcer Outcome Not Healed Not Healed -Ulcer Cleansing Rinsed/ Rinsed/ Irrigated with Irrigated with Saline Saline -Foul Odor after Cleansing No No -Bioengineered Tissue No -Bleeding Controlled with Pressure Pressure -Treatment Response Procedure Procedure Tolerated Well Tolerated Well Pain Scale: 0-10 Numeric Is Patient Pain Free? Yes Yes Wound debrided: Left dorsomedial foot Laterality: Left Type of Debridement: Excisional debridement Anesthesia Used: 4% Lidocaine Solution Depth: in the subcutaneous layer Percentage of wound debrided: 100 Instrument Used: 3mm curette, #15 blade Tissue Removed: Adherent slough, fibrin, hyperkeratotic tissue Severity: Fat Layer Exposed Amount of bleeding with debridement: Mild Bleeding Controlled with: Pressure Patient tolerated procedure well - Additional Wound Wound debrided: Left medial ankle Laterality: Left Type of Debridement: Excisional debridement Anesthesia Used: 4% Lidocaine Solution Depth: in the subcutaneous layer Percentage of wound debrided: 100 Instrument Used: 3mm curette, #15 blade Tissue Removed: Adherent slough, fibrin, hyperkeratotic tissue Severity: Fat Layer Exposed Amount of bleeding with debridement: Mild Bleeding Controlled with: Pressure Patient tolerated procedure: Patient tolerated procedure well - Additional Wound Wound debrided: Left anterior lower leg Laterality: Left Type of Debridement: Excisional debridement Anesthesia Used: 4% Lidocaine Solution Depth: in the subcutaneous layer Percentage of wound debrided: 100 Instrument Used: 3mm curette, #15 blade Tissue Removed: Adherent slough, fibrin, hyperkeratotic tissue Severity: Fat Layer Exposed Amount of bleeding with debridement: Mild Bleeding Controlled with: Pressure Patient tolerated procedure: Patient tolerated procedure well Assessment/Plan Assessment: Right medial ankle ulcer resolved. Peripheral vascular occlusive disease. Nonhealing ulcers resolved. Edema Plan: Patient was carefully examined and evaluated today. Subcutaneous debridement was performed to each of the aforementioned ulcer sites as noted in the clinical panel again this week. Once complete, the ulcer sites were carefully cleansed and then dressed with Elvira to the bases followed by a dry sterile dressing and Tubigrip for compression. The patient is to continue the dressing changes in this manner on a daily basis. The importance of offloading the ulcer site was discussed at length with this patient again today. He says he is unable to completely stop working, but he does have the option for light duty. He is to continue with this. I stressed the importance of keeping pressure off of all of the ulcer sites and how this will impact his healing potential. Patient was instructed that while not at work, he is to be off his feet as much as possible and to keep the areas elevated. The importance of compression was also discussed with this patient today. Since there has been no significant improvement over the previous weeks, 2 antibiotics were prescribed to the patient today per Dr. Farris's recommendation during his consultation for this patient previously. A prescription for Augmentin as well as Flagyl were placed today and he was instructed to take these until complete. He was instructed to avoid alcohol while taking this medication as well as for 2 weeks after completion of the medication. LEAS studies were reviewed prior to patient's visit and the results are in the patient's chart. I continue to recommend nutritional supplementation with a high-protein diet at this time in order to help optimize ulcer healing potential. Smoking cessation was stressed again today. Since the patient has been in treatment for a total of 4 weeks this time with no significant change, we will apply for skin substitute. Was also given Hibiclens and he is to use this to clean the ulcer site for 3 days prior to his next visit. All signs and symptoms of local and systemic infection were discussed in great detail with the patient today and he was instructed to go to the emergency room immediately should he notice any of these. All questions were answered to the patient's satisfaction. Patient will follow-up in clinic in 1 week to check on progress, or sooner if needed.
[2018-08-15 09:17] VITALS: BP 154/72; PULSE 84; RESP 18; TEMP 35.5
--- NOTE | 2018-08-15 13:54 | PN.PCM_ITS ---
(1) Ulcer of left lower extremity with fat layer exposed Status: Acute Current Visit: No Code(s): L97.922 - Non-pressure chronic ulcer of unspecified part of left lower leg with fat layer exposed (2) PVD (peripheral vascular disease) Status: Acute Current Visit: No Code(s): I73.9 - Peripheral vascular disease, unspecified (3) Chronic venous insufficiency Status: Acute Current Visit: No Code(s): I87.2 - Venous insufficiency (chronic) (peripheral) (4) Edema, lower extremity Status: Acute Current Visit: No Code(s): R60.0 - Localized edema (5) Pain of left lower extremity Status: Acute Current Visit: No Code(s): M79.605 - Pain in left leg (6) Delayed wound healing Status: Acute Current Visit: No Code(s): T14.8XXD - Other injury of unspecified body region, subsequent encounter Type of Wound Chief Complaint: ulcers to the left lower leg/foot History of Wound: This is a 51-year-old white male presents to wound healing center with a long-standing history of chronic venous insufficiency, chronic venous hypertension, lower extremity edema, lower extremity pain, and 3 ulcer sites to left lower leg/foot. The patient has had multiple ulcerations in the lower extremities bilaterally, related to his chronic venous disease. He also has chronic venous stasis changes. The skin changes include hyperpigmentation. The patient has previously undergone endovenous laser ablation of the left and right great saphenous vein, the small saphenous vein, the left accessory saphenous vein, and an incompetent left calf embossograph operator vein located 15 cm p roximal to the left medial malleolus. He is currently wearing graduated compression stockings which are documented to be 20-30 mmHg compression, however, he says the ones he has on are about a year old. He has new ones at home that he has not been wearing. 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 Patient says that he noticed a small area start opening on the top of his left foot about 8-10 months ago. He says he tried to doctor this on his own with old wound care supplies. He says this continued to get slightly worse. Then, about 4 months ago, he noticed the area around the medial malleolus starting to break down, and that has slowly been getting worse too. He also has a small anterior lower leg ulcer. Nothing he has done on his own to treat these areas has helped. He decided he should finally come back to the wound healing center to see if he can get the areas to heal again. Progress of Wound: Ulcers remain fairly stable again this week. Patient has continued with daily Elvira dressing changes and antibiotics. Patient denies any feelings of nausea, vomiting, fever, chills at this time. - Physical Exam Vital Signs Temp Pulse Resp BP 96 F L 84 18 154/72 H 08/15/18 09:17 08/15/18 09:17 08/15/18 09:08/15/18 09:17 General: Alert, Oriented x3, Cooperative, No apparent distress Extremities: Capillary Refill Less than 3 Seconds, No Calf Tenderness - Negative Lakisha and Hough sign, Diminished Peripheral Pulses - DP pulses palpable and PT pulses nonpalpable, Edema - Slight lower extremity edema noted Skin: Ulcer/ Wound - Ulcer to the left dorsomedial foot, left medial ankle, and left anterior lower leg with fat layer exposed. Ulcers remain fairly stable compared to last week. Slight improvement appreciated to the dorsal medial foot, and left anterior lower leg. Less serous drainage appreciated this week. The bases of each ulcer site continue to show adherent slough, fibrin, granular tissue as well as some slight surrounding hyperkeratotic tissue. There continues to be no probing to bone, no tracking, no undermining, no surrounding or extending cellulitis, no purulence, no malodor, and no increase in warmth at this time. Wound Measurements and Assessment WC - Nurse 1 - General Ulcer Measurement Start: 08/01/18 09:35 Freq: Status: Active Protocol: Activity Type Activity Date Activity User E-Sign Co-Sign Detail Recorded Client Recorded Date Recorded By Document 08/15/18 09:17 DL [id number] 08/15/18 09:25 DL 08/15/18 09:17 Wound Center Nurse 1 [Ulcer Assessment] #6 LEFT ANKLE- SUPERIOR -Current Size (cm) - Length 1.1 -Current Size (cm) - Width 0.2 -Current Size (cm) - Depth 0.1 -Total Square Cm 0.22 -Photo Taken No -Exudate Amt None Present (0 %) -Wound Margin Flat & Intact -Granulation Amt None Present (0 %) -Necrosis Amt Small (1-33%) -Necrotic Tissue Type Adherent Slough -Structure Exposed N/A -Texture (Ara-wound Skin Appearance) Scarring -Moisture (Ara-wound Skin Appearance Dry/Scaly ) -Color (Ara-wound Skin Appearance) Hemosiderin Staining Rubor -Temperature (Ara-wound Skin No Abnormality Appearance) (Pt Warm) -Ulcer Cleansing Rinsed/ Irrigated with Saline -Foul Odor after Cleansing No -Anesthetic Used 4% Lidocaine Solution #4 LEFT ANKLE -Current Size (cm) - Length 5 -Current Size (cm) - Width 7.1 -Current Size (cm) - Depth 0.5 -Total Square Cm 35.5 -Photo Taken No -Exudate Amt Medium (34-66%) -Exudate Type Serosanguineous -Wound Margin Thickened & Rolled Under -Granulation Amt Medium (34-66%) -Granulation Quality Red -Necrosis Amt Medium (34-66%) -Necrotic Tissue Type Adherent Slough -Structure Exposed N/A -Texture (Ara-wound Skin Appearance) Scarring -Moisture (Ara-wound Skin Appearance Dry/Scaly ) -Color (Ara-wound Skin Appearance) Hemosiderin Staining Rubor -Temperature (Ara-wound Skin No Abnormality Appearance) (Pt Warm) -Tenderness on Palpation (Ara-wound No Skin Appearance) -Ulcer Cleansing Rinsed/ Irrigated with Saline -Foul Odor after Cleansing No -Anesthetic Used 4% Lidocaine Solution #5 LEFT MEDIAL FOOT- (ABOVE ARCH) -Current Size (cm) - Length 0.8 -Current Size (cm) - Width 1.1 -Current Size (cm) - Depth 0.1 -Total Square Cm 0.88 -Photo Taken No -Exudate Amt Small (1-33%) -Exudate Type Serosanguineous -Wound Margin Thickened -Granulation Amt Large (67-100%) -Granulation Quality Red -Necrosis Amt Small (1-33%) -Necrotic Tissue Type Adherent Slough -Structure Exposed N/A -Texture (Ara-wound Skin Appearance) Scarring -Moisture (Ara-wound Skin Appearance Dry/Scaly ) -Color (Ara-wound Skin Appearance) Hemosiderin Staining Rubor -Temperature (Ara-wound Skin No Abnormality Appearance) (Pt Warm) -Tenderness on Palpation (Aar-wound No Skin Appearance) -Ulcer Cleansing Rinsed/ Irrigated with Saline -Foul Odor after Cleansing No -Anesthetic Used 4% Lidocaine Solution [Edema Assessment] -Left Calf (cm) 34.5 -Left Ankle (cm) 23.5 WC - Nurse 2 - General Ulcer CM Notes Start: 08/01/18 09:35 Freq: Status: Active Protocol: Activity Type Activity Date Activity User E-Sign Co-Sign Detail Recorded Client Recorded Date Recorded By Document 08/15/18 10:01 DV [id number] 08/15/18 10:17 DV 08/15/18 10:01 Wound Center Nurse 2 [Procedure/Treatment] #6 LEFT ANKLE- SUPERIOR -Time 10:02 -Correct Patient Yes -Correct Side, Site, Position Yes -Correct Procedure Yes -Procedure Performed Yes -Type of Procedure Debridement -Clinical Debridement Subcutaneous -Post Debridement Size (cm) - Length 0.1 -Post Debridement Size (cm) - Width 0.1 -Post Debridement Size (cm) - Depth 0.1 -Total Square Cm 0.01 -Wound/Ulcer Outcome Not Healed -Ulcer Cleansing Rinsed/ Irrigated with Saline -Foul Odor after Cleansing No -Bioengineered Tissue No -Bleeding Controlled with Pressure -Treatment Response Procedure Tolerated Well #4 LEFT ANKLE -Time 10:02 -Correct Patient Yes -Correct Side, Site, Position Yes -Correct Procedure Yes -Procedure Performed Yes -Type of Procedure Debridement -Clinical Debridement Subcutaneous -Post Debridement Size (cm) - Length 1.5 -Post Debridement Size (cm) - Width 1.0 -Post Debridement Size (cm) - Depth 0.1 -Total Square Cm 1.50 -Wound/Ulcer Outcome Not Healed -Ulcer Cleansing Rinsed/ Irrigated with Saline -Foul Odor after Cleansing No -Bleeding Controlled with Pressure -Treatment Response Procedure Tolerated Well #5 LEFT MEDIAL FOOT- (ABOVE ARCH) -Time 10:04 -Correct Patient Yes -Correct Side, Site, Position Yes -Correct Procedure Yes -Procedure Performed Yes -Type of Procedure Debridement -Clinical Debridement Subcutaneous -Post Debridement Size (cm) - Length 4.9 -Post Debridement Size (cm) - Width 6.6 -Post Debridement Size (cm) - Depth 0.3 -Total Square Cm 32.34 -Wound/Ulcer Outcome Not Healed -Ulcer Cleansing Rinsed/ Irrigated with Saline -Foul Odor after Cleansing No -Bleeding Controlled with Pressure -Treatment Response Procedure Tolerated Well [See Physician Procedure note for Specifics] Pain Scale: 0-10 Numeric [Pain] -Is Patient Pain Free? Yes Musculoskeletal: No Tenderness to Palpation of Joints or Extremities, Tenderness - Some tenderness with manipulation of ulcer site Neurological: Sensory exam intact to light touch and pain Psych/Mental Status: Normal Affect, Appropriate Debridement Note Post-Debridement Measurements/Treatment WC - Nurse 2 - General Ulcer CM Notes Start: 08/01/18 09:35 Freq: Status: Active Protocol: Activity Type Activity Date Activity User E-Sign Co-Sign Detail Recorded Client Recorded Date Recorded By Document 08/01/18 09:59 DV [id number] 08/01/18 10:04 DV Document 08/08/18 09:40 DV [id number] 08/08/18 09:48 DV Document 08/15/18 10:01 DV [id number] 08/15/18 10:17 DV 08/01/18 08/08/18 08/15/18 09:59 09:40 10:01 Wound Center Nurse 2 #6 LEFT ANKLE- SUPERIOR -Time 10:01 09:41 10:02 -Correct Patient Yes Yes Yes -Correct Side, Site, Position Yes Yes Yes -Correct Procedure Yes Yes Yes -Procedure Performed Yes Yes Yes -Type of Procedure Debridement Debridement Debridement -Clinical Debridement Subcutaneous Subcutaneous Subcutaneous -Post Debridement Size (cm) - Length 1.2 1.0 0.1 -Post Debridement Size (cm) - Width 0.2 0.2 0.1 -Post Debridement Size (cm) - Depth 0.2 0.2 0.1 -Total Square Cm 0.24 0.20 0.01 -Wound/Ulcer Outcome Not Healed Not Healed Not Healed -Ulcer Cleansing Rinsed/ Rinsed/ Rinsed/ Irrigated with Irrigated with Irrigated with Saline Saline Saline -Foul Odor after Cleansing No No No -Bioengineered Tissue No No No -Bleeding Controlled with Pressure Pressure Pressure -Treatment Response Procedure Procedure Procedure Tolerated Well Tolerated Well Tolerated Well #4 LEFT ANKLE -Time 10:01 09:45 10:02 -Correct Patient Yes Yes Yes -Correct Side, Site, Position Yes Yes Yes -Correct Procedure Yes Yes Yes -Procedure Performed Yes Yes Yes -Type of Procedure Debridement Debridement Debridement -Clinical Debridement Subcutaneous Subcutaneous Subcutaneous -Post Debridement Size (cm) - Length 4.9 5.2 1.5 -Post Debridement Size (cm) - Width 5.6 6.8 1.0 -Post Debridement Size (cm) - Depth 0.3 0.3 0.1 -Total Square Cm 27.44 35.36 1.50 -Wound/Ulcer Outcome Not Healed Not Healed Not Healed -Ulcer Cleansing Rinsed/ Rinsed/ Irrigated with Irrigated with Saline Saline -Foul Odor after Cleansing No No -Bioengineered Tissue No -Bleeding Controlled with Pressure Pressure Pressure -Treatment Response Procedure Procedure Procedure Tolerated Well Tolerated Well Tolerated Well #5 LEFT MEDIAL FOOT- (ABOVE ARCH) -Time 10:00 09:42 10:04 -Correct Patient Yes Yes Yes -Correct Side, Site, Position Yes Yes Yes -Correct Procedure Yes Yes Yes -Procedure Performed Yes Yes Yes -Type of Procedure Debridement Debridement Debridement -Clinical Debridement Subcutaneous Subcutaneous Subcutaneous -Post Debridement Size (cm) - Length 2.0 1.8 4.9 -Post Debridement Size (cm) - Width 1.0 1.0 6.6 -Post Debridement Size (cm) - Depth 0.2 0.1 0.3 -Total Square Cm 2.00 1.80 32.34 -Wound/Ulcer Outcome Not Healed Not Healed Not Healed -Ulcer Cleansing Rinsed/ Rinsed/ Rinsed/ Irrigated with Irrigated with Irrigated with Saline Saline Saline -Foul Odor after Cleansing No No No -Bioengineered Tissue No -Bleeding Controlled with Pressure Pressure Pressure -Treatment Response Procedure Procedure Procedure Tolerated Well Tolerated Well Tolerated Well Pain Scale: 0-10 Numeric Is Patient Pain Free? Yes Yes Yes Wound debrided: Left dorsomedial foot Laterality: Left Type of Debridement: Excisional debridement Anesthesia Used: 4% Lidocaine Solution Depth: in the subcutaneous layer Percentage of wound debrided: 100 Instrument Used: 7mm curette Tissue Removed: Adherent slough, fibrin, hyperkeratotic tissue Severity: Fat Layer Exposed Amount of bleeding with debridement: Mild Bleeding Controlled with: Pressure Patient tolerated procedure well - Additional Wound Wound debrided: Left medial ankle Laterality: Left Type of Debridement: Excisional debridement Depth: in the subcutaneous layer Percentage of wound debrided: 100 Instrument Used: 7mm curette Tissue Removed: Adherent slough, fibrin, hyperkeratotic tissue Severity: Fat Layer Exposed Amount of bleeding with debridement: Mild Bleeding Controlled with: Pressure Patient tolerated procedure: Patient tolerated procedure well - Additional Wound Wound debrided: Left anterior lower leg Laterality: Left Type of Debridement: Excisional debridement Anesthesia Used: 4% Lidocaine Solution Depth: in the subcutaneous layer Percentage of wound debrided: 100 Instrument Used: 7mm curette Tissue Removed: Adherent slough, fibrin, hyperkeratotic tissue Severity: Fat Layer Exposed Amount of bleeding with debridement: Mild Bleeding Controlled with: Pressure Patient tolerated procedure: Patient tolerated procedure well Assessment/Plan Assessment: Right medial ankle ulcer resolved. Peripheral vascular occlusive disease. Nonhealing ulcers resolved. Edema Plan: Patient was carefully examined and evaluated today. Subcutaneous debridem ent was performed to each of the aforementioned ulcer sites as noted in the clinical panel again this week. Once complete, the ulcer sites were carefully cleansed and then dressed with Elvira to the bases followed by a dry sterile dressing and Tubigrip for compression. The patient is to continue the dressing changes in this manner on a daily basis. The importance of offloading the ulcer site was discussed at length with this patient again today. He says he is unable to completely stop working, but he does have the option for light duty. He is to continue with this. I stressed the importance of keeping pressure off of all of the ulcer sites and how this will impact his healing potential. Patient was instructed that while not at work, he is to be off his feet as much as possible and to keep the areas elevated. The importance of compression was also discussed with this patient today. Patient is to continue with Augmentin as well as Flagyl prescriptions until complete. He was instructed to avoid alcohol while taking this medication as well as for 2 weeks after completion of the medication. LEAS studies were reviewed prior to patient's visit and the results are in the patient's chart. I continue to recommend nutritional supplementation with a high-protein diet at this time in order to help optimize ulcer healing potential. Smoking cessation was stressed again today. Epi fix was applied for and are still awaiting word on approval. Was also given Hibiclens and he is to use this to clean the ulcer site for 3 days prior to his next visit. All signs and symptoms of local and systemic infection were discussed in great detail with the patient today and he was instructed to go to the emergency room immediately should he notice any of these. All questions were answered to the patient's satisfaction. Patient will follow-up in clinic in 1 week to check on progress, or sooner if needed.
[2018-08-22 08:33] VITALS: BP 142/99; PULSE 89; RESP 16; TEMP 36.1
--- NOTE | 2018-08-22 12:01 | PCM.WC.PN ---
(1) Ulcer of left lower extremity with fat layer exposed Status: Acute Current Visit: No Code(s): L97.922 - Non-pressure chronic ulcer of unspecified part of left lower leg with fat layer exposed (2) PVD (peripheral vascular disease) Status: Acute Current Visit: No Code(s): I73.9 - Peripheral vascular disease, unspecified (3) Chronic venous insufficiency Status: Acute Current Visit: No Code(s): I87.2 - Venous insufficiency (chronic) (peripheral) (4) Edema, lower extremity Status: Acute Current Visit: No Code(s): R60.0 - Localized edema (5) Pain of left lower extremity Status: Acute Current Visit: No Code(s): M79.605 - Pain in left leg (6) Delayed wound healing Status: Acute Current Visit: No Code(s): T14.8XXD - Other injury of unspecified body region, subsequent encounter Type of Wound Chief Complaint: ulcers to the left lower leg/foot History of Wound: This is a 51-year-old white male presents to wound healing center with a long-standing history of chronic venous insufficiency, chronic venous hypertension, lower extremity edema, lower extremity pain, and 3 ulcer sites to left lower leg/foot. The patient has had multiple ulcerations in the lower extremities bilaterally, related to his chronic venous disease. He also has chronic venous stasis changes. The skin changes include hyperpigmentation. The patient has previously undergone endovenous laser ablation of the left and right great saphenous vein, the small saphenous vein, the left accessory saphenous vein, and an incompetent left calf video recorder mechanic vein located 15 cm proximal to the left medial malleolus. He is currently wearing graduated compression stockings which are documented to be 20-30 mmHg compression, however, he says the ones he has on are about a year old. He has new ones at home that he has not been wearing. 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 Patient says that he noticed a small area start opening on the top of his left foot about 8-10 months ago. He says he tried to doctor this on his own with old wound care supplies. He says this continued to get slightly worse. Then, about 4 months ago, he noticed the area around the medial malleolus starting to break down, and that has slowly been getting worse too. He also has a small anterior lower leg ulcer. Nothing he has done on his own to treat these areas has helped. He decided he should finally come back to the wound healing center to see if he can get the areas to heal again. Progress of Wound: Ulcers remain fairly stable again this week. Patient has continued with daily Elvira dressing changes and antibiotics. Patient denies any feelings of nausea, vomiting, fever, chills at this time. - Physical Exam Vital Signs Temp Pulse Resp BP 96.9 F L 89 16 142/99 H 08/22/18 08:33 08/22/18 08:33 08/22/18 08:33 08/22/18 08:33 General: Alert, Oriented x3, Cooperative, No apparent distress Extremities: Capillary Refill Less than 3 Seconds, No Calf Tenderness - Negative Lakisha and Hough sign, Diminished Peripheral Pulses - DP pulses palpable and PT pulses nonpalpable, Edema - Slight lower extremity edema Skin: Ulcer/ Wound - Ulcer to the dorsal medial foot, left medial ankle, and left anterior lower leg with fat layer exposed. Ulcers are stable. The bases of each ulcer site have adherent slough, fibrin, granular tissue as well as surrounding hyperkeratotic tissue. There continues to be no probing to bone, no tracking, no undermining, no surrounding or extending cellulitis, no purulence, no malodor, and no increase in warmth to the ulcer sites at this time. Wound Measurements and Assessment WC - Nurse 1 - General Ulcer Measurement Start: 08/01/18 09:35 Freq: Status: Active Protocol: Activity Type Activity Date Activity User E-Sign Co-Sign Detail Recorded Client Recorded Date Recorded By Document 08/22/18 08:33 [id number] 08/22/18 08:38 08/22/18 08:33 Wound Center Nurse 1 [Ulcer Assessment] #6 LEFT ANKLE- SUPERIOR -Combined with other wound No -Current Size (cm) - Length 0.1 -Current Size (cm) - Width 0.1 -Current Size (cm) - Depth 0.1 -Total Square Cm 0.01 -Photo Taken No -Epithelialization Medium 34-66% -Tunneling No -Undermining/Tunneling No -Circular Undermining No -Necrosis Amt Large (67-100%) -Necrotic Tissue Type Eschar -Temperature (Ara-wound Skin No Abnormality Appearance) (Pt Warm) -Tenderness on Palpation (Ara-wound No Skin Appearance) -Ulcer Cleansing Rinsed/ Irrigated with Saline -Foul Odor after Cleansing No -Anesthetic Used 4% Lidocaine Solution #4 LEFT ANKLE -Combined with other wound No -Current Size (cm) - Length 5.9 -Current Size (cm) - Width 5.7 -Current Size (cm) - Depth 0.3 -Total Square Cm 33.63 -Photo Taken No -Epithelialization Small 1-33% -Tunneling No -Undermining/Tunneling No -Circular Undermining No -Wound Margin Thickened -Granulation Amt Large (67-100%) -Granulation Quality Pale [place] -Slough/Fibrin Yes -Necrosis Amt None Present (0 %) -Necrotic Tissue Type Adherent Slough -Texture (Ara-wound Skin Appearance) No Abnormality Assessed -Moisture (Ara-wound Skin Appearance No Abnormality ) Assessed -Color (Ara-wound Skin Appearance) No Abnormality Assessed -Temperature (Ara-wound Skin No Abnormality Appearance) (Pt Warm) -Tenderness on Palpation (Ara-wound No Skin Appearance) -Ulcer Cleansing Rinsed/ Irrigated with Saline -Foul Odor after Cleansing No -Anesthetic Used 4% Lidocaine Solution #5 LEFT MEDIAL FOOT- (ABOVE ARCH) -Combined with other wound No -Current Size (cm) - Length 0.7 -Current Size (cm) - Width 0.6 -Current Size (cm) - Depth 0.1 -Total Square Cm 0.42 -Photo Taken No -Epithelialization Small 1-33% -Tunneling No -Undermining/Tunneling No -Circular Undermining No -Temperature (Ara-wound Skin No Abnormality Appearance) (Pt Warm) -Tenderness on Palpation (Ara-wound No Skin Appearance) -Ulcer Cleansing Rinsed/ Irrigated with Saline -Foul Odor after Cleansing No -Anesthetic Used 4% Lidocaine Solution [Edema Assessment] -Lower Limb Edema Present No -Left Calf (cm) 35 -Left Ankle (cm) 24.5 WC - Nurse 2 - General Ulcer CM Notes Start: 08/01/18 09:35 Freq: Status: Active Protocol: Activity Type Activity Date Activity User E-Sign Co-Sign Detail Recorded Client Recorded Date Recorded By Document 08/22/18 09:33 DV [id number] 08/22/18 09:42 DV 08/22/18 09:33 Wound Center Nurse 2 [Procedure/Treatment] #6 LEFT ANKLE- SUPERIOR -Time 09:39 -Correct Patient Yes -Correct Side, Site, Position Yes -Correct Procedure Yes -Procedure Performed Yes -Type of Procedure Debridement -Clinical Debridement Subcutaneous -Post Debridement Size (cm) - Length 0.6 -Post Debridement Size (cm) - Width 0.1 -Post Debridement Size (cm) - Depth 0.1 -Total Square Cm 0.06 -Wound/Ulcer Outcome Not Healed -Ulcer Cleansing Rinsed/ Irrigated with Saline -Foul Odor after Cleansing No -Bioengineered Tissue Yes -Type of bioengineered Tissue EPIFIX -Expiration Date 04/28/23 -Product Lot Number [id number] -Percent Used 100 -Topical Lidocaine (%) 4 -Bleeding Controlled with Pressure -Treatment Response Procedure Tolerated Well #4 LEFT ANKLE -Time 09:39 -Correct Patient Yes -Correct Side, Site, Position Yes -Correct Procedure Yes -Procedure Performed Yes -Type of Procedure Debridement -Clinical Debridement Subcutaneous -Post Debridement Size (cm) - Length 4.8 -Post Debridement Size (cm) - Width 6.8 -Post Debridement Size (cm) - Depth 0.3 -Total Square Cm 32.64 -Wound/Ulcer Outcome Not Healed -Ulcer Cleansing Rinsed/ Irrigated with Saline -Foul Odor after Cleansing No -Bioengineered Tissue Yes -Type of bioengineered Tissue EPIFIX -Bleeding Controlled with Pressure -Treatment Response Procedure Tolerated Well #5 LEFT MEDIAL FOOT- (ABOVE ARCH) -Time 09:39 -Correct Patient Yes -Correct Side, Site, Position Yes -Correct Procedure Yes -Procedure Performed Yes -Type of Procedure Debridement -Clinical Debridement Subcutaneous -Post Debridement Size (cm) - Length 1.8 -Post Debridement Size (cm) - Width 0.8 -Post Debridement Size (cm) - Depth 0.1 -Total Square Cm 1.44 -Wound/Ulcer Outcome Not Healed -Ulcer Cleansing Rinsed/ Irrigated with Saline -Foul Odor after Cleansing No -Bioengineered Tissue Yes -Type of bioengineered Tissue EPIFIX -Bleeding Controlled with Pressure -Treatment Response Procedure Tolerated Well [See Physician Procedure note for Specifics] Musculoskeletal: No Tenderness to Palpation of Joints or Extremities, Tenderness - Some tenderness with manipulation of ulcer sites Neurological: Sensory exam intact to light touch and pain Psych/Mental Status: Normal Affect, Appropriate Debridement Note Post-Debridement Measurements/Treatment WC - Nurse 2 - General Ulcer CM Notes Start: 08/01/18 09:35 Freq: Status: Active Protocol: Activity Type Activity Date Activity User E-Sign Co-Sign Detail Recorded Client Recorded Date Recorded By Document 08/01/18 09:59 DV [id number] 08/01/18 10:04 DV Document 08/08/18 09:40 DV [id number] 08/08/18 09:48 DV Document 08/15/18 10:01 DV [id number] 08/15/18 10:17 DV Document 08/22/18 09:33 DV [id number] 08/22/18 09:42 DV 08/01/18 08/08/18 08/15/18 09:59 09:40 10:01 Wound Center Nurse 2 #6 LEFT ANKLE- SUPERIOR -Time 10:01 09:41 10:02 -Correct Patient Yes Yes Yes -Correct Side, Site, Position Yes Yes Yes -Correct Procedure Yes Yes Yes -Procedure Performed Yes Yes Yes -Type of Procedure Debridement Debridement Debridement -Clinical Debridement Subcutaneous Subcutaneous Subcutaneous -Post Debridement Size (cm) - Length 1.2 1.0 0.1 -Post Debridement Size (cm) - Width 0.2 0.2 0.1 -Post Debridement Size (cm) - Depth 0.2 0.2 0.1 -Total Square Cm 0.24 0.20 0.01 -Wound/Ulcer Outcome Not Healed Not Healed Not Healed -Ulcer Cleansing Rinsed/ Rinsed/ Rinsed/ Irrigated with Irrigated with Irrigated with Saline Saline Saline -Foul Odor after Cleansing No No No -Bioengineered Tissue No No No -Type of bioengineered Tissue -Expiration Date -Product Lot Number -Percent Used -Topical Lidocaine (%) -Bleeding Controlled with Pressure Pressure Pressure -Treatment Response Procedure Procedure Procedure Tolerated Well Tolerated Well Tolerated Well #4 LEFT ANKLE -Time 10:01 09:45 10:02 -Correct Patient Yes Yes Yes -Correct Side, Site, Position Yes Yes Yes -Correct Procedure Yes Yes Yes -Procedure Performed Yes Yes Yes -Type of Procedure Debridement Debridement Debridement -Clinical Debridement Subcutaneous Subcutaneous Subcutaneous -Post Debridement Size (cm) - Length 4.9 5.2 1.5 -Post Debridement Size (cm) - Width 5.6 6.8 1.0 -Post Debridement Size (cm) - Depth 0.3 0.3 0.1 -Total Square Cm 27.44 35.36 1.50 -Wound/Ulcer Outcome Not Healed Not Healed Not Healed -Ulcer Cleansing Rinsed/ Rinsed/ Irrigated with Irrigated with Saline Saline -Foul Odor after Cleansing No No -Bioengineered Tissue No -Type of bioengineered Tissue -Bleeding Controlled with Pressure Pressure Pressure -Treatment Response Procedure Procedure Procedure Tolerated Well Tolerated Well Tolerated Well #5 LEFT MEDIAL FOOT- (ABOVE ARCH) -Time 10:00 09:42 10:04 -Correct Patient Yes Yes Yes -Correct Side, Site, Position Yes Yes Yes -Correct Procedure Yes Yes Yes -Procedure Performed Yes Yes Yes -Type of Procedure Debridement Debridement Debridement -Clinical Debridement Subcutaneous Subcutaneous Subcutaneous -Post Debridement Size (cm) - Length 2.0 1.8 4.9 -Post Debridement Size (cm) - Width 1.0 1.0 6.6 -Post Debridement Size (cm) - Depth 0.2 0.1 0.3 -Total Square Cm 2.00 1.80 32.34 -Wound/Ulcer Outcome Not Healed Not Healed Not Healed -Ulcer Cleansing Rinsed/ Rinsed/ Rinsed/ Irrigated with Irrigated with Irrigated with Saline Saline Saline -Foul Odor after Cleansing No No No -Bioengineered Tissue No -Type of bioengineered Tissue -Bleeding Controlled with Pressure Pressure Pressure -Treatment Response Procedure Procedure Procedure Tolerated Well Tolerated Well Tolerated Well Pain Scale: 0-10 Numeric Is Patient Pain Free? Yes Yes Yes 08/22/18 09:33 Wound Center Nurse 2 #6 LEFT ANKLE- SUPERIOR -Time 09:39 -Correct Patient Yes -Correct Side, Site, Position Yes -Correct Procedure Yes -Procedure Performed Yes -Type of Procedure Debridement -Clinical Debridement Subcutaneous -Post Debridement Size (cm) - Length 0.6 -Post Debridement Size (cm) - Width 0.1 -Post Debridement Size (cm) - Depth 0.1 -Total Square Cm 0.06 -Wound/Ulcer Outcome Not Healed -Ulcer Cleansing Rinsed/ Irrigated with Saline -Foul Odor after Cleansing No -Bioengineered Tissue Yes -Type of bioengineered Tissue EPIFIX -Expiration Date 04/28/23 -Product Lot Number [id number] -Percent Used 100 -Topical Lidocaine (%) 4 -Bleeding Controlled with Pressure -Treatment Response Procedure Tolerated Well #4 LEFT ANKLE -Time 09:39 -Correct Patient Yes -Correct Side, Site, Position Yes -Correct Procedure Yes -Procedure Performed Yes -Type of Procedure Debridement -Clinical Debridement Subcutaneous -Post Debridement Size (cm) - Length 4.8 -Post Debridement Size (cm) - Width 6.8 -Post Debridement Size (cm) - Depth 0.3 -Total Square Cm 32.64 -Wound/Ulcer Outcome Not Healed -Ulcer Cleansing Rinsed/ Irrigated with Saline -Foul Odor after Cleansing No -Bioengineered Tissue Yes -Type of bioengineered Tissue EPIFIX -Bleeding Controlled with Pressure -Treatment Response Procedure Tolerated Well #5 LEFT MEDIAL FOOT- (ABOVE ARCH) -Time 09:39 -Correct Patient Yes -Correct Side, Site, Position Yes -Correct Procedure Yes -Procedure Performed Yes -Type of Procedure Debridement -Clinical Debridement Subcutaneous -Post Debridement Size (cm) - Length 1.8 -Post Debridement Size (cm) - Width 0.8 -Post Debridement Size (cm) - Depth 0.1 -Total Square Cm 1.44 -Wound/Ulcer Outcome Not Healed -Ulcer Cleansing Rinsed/ Irrigated with Saline -Foul Odor after Cleansing No -Bioengineered Tissue Yes -Type of bioengineered Tissue EPIFIX -Bleeding Controlled with Pressure -Treatment Response Procedure Tolerated Well Pain Scale: 0-10 Numeric Is Patient Pain Free? Wound debrided: Left dorsomedial foot Laterality: Left Type of Debridement: Excisional debridement Anesthesia Used: 4% Lidocaine Solution Depth: in the subcutaneous layer Percentage of wound debrided: 100 Instrument Used: 7mm curette Tissue Removed: Adherent slough, fibrin, hyperkeratotic tissue Severity: Fat Layer Exposed Amount of bleeding with debridement: Mild Bleeding Controlled with: Pressure Patient tolerated procedure well - Additional Wound Wound debrided: Left medial ankle Laterality: Left Type of Debridement: Excisional debridement Anesthesia Used: 4% Lidocaine Solution Depth: in the subcutaneous layer Percentage of wound debrided: 100 Instrument Used: 7mm curette Tissue Removed: Adherent slough, fibrin, hyperkeratotic tissue Severity: Fat Layer Exposed Amount of bleeding with debridement: Mild Bleeding Controlled with: Pressure Patient tolerated procedure: Patient tolerated procedure well - Additional Wound Wound debrided: Left anterior lower leg Laterality: Left Type of Debridement: Excisional debridement Anesthesia Used: 4% Lidocaine Solution Depth: in the subcutaneous layer Percentage of wound debrided: 100 Instrument Used: 7mm curette Tissue Removed: Adherent slough, fibrin, hyperkeratotic tissue Severity: Fat Layer Exposed Amount of bleeding with debridement: Mild Bleeding Controlled with: Pressure Patient tolerated procedure: Patient tolerated procedure well Assessment/Plan Assessment: Right medial ankle ulcer resolved. Peripheral vascular occlusive disease. Nonhealing ulcers resolved. Edema Plan: Patient was carefully examined and evaluated today. Subcutaneous debridement was performed to each of the aforementioned ulcer sites as noted in the clinical panel again this week. Once complete, the ulcer sites were carefully cleansed and then epifix #1 was applied to the medial ankle ulcer periphery. This area was then dressed with wound veil, steristrips, and a dry sterile dressing. He was instructed to keep this aspect of the dressing intact below the level of the wound veil for the next week and to keep it dry. The remaining ulcer sites were dressed with Elvira to the bases followed by a dry sterile dressing and Tubigrip for compression. The patient is to continue the dressing changes in this manner on a daily basis. The importance of offloading the ulcer site was discussed at length with this patient again today. He says he is unable to completely stop working, but he does have the option for light duty. He is to continue with this. I stressed the importance of keeping pressure off of all of the ulcer sites and how this will impact his healing potential. Patient was instructed that while not at work, he is to be off his feet as much as possible and to keep the areas elevated. The importance of compression was also discussed with this patient today. Patient finished his Augmentin as well as Flagyl prescriptions. He was instructed to avoid alcohol for 2 weeks after completion of the medication. LEAS studies were reviewed prior to patient's visit and the results are in the patient's chart. I continue to recommend nutritional supplementation with a high-protein diet at this time in order to help optimize ulcer healing potential. Smoking cessation was stressed again today. All signs and symptoms of local and systemic infection were discussed in great detail with the patient today and he was instructed to go to the emergency room immediately should he notice any of these. All questions were answered to the patient's satisfaction. Patient will follow-up in clinic in 1 week to check on progress, or sooner if needed.
--- NOTE | 2018-08-22 12:05 | PN.PCM_ITS ---
(1) Ulcer of left lower extremity with fat layer exposed Status: Acute Current Visit: No Code(s): L97.922 - Non-pressure chronic ulcer of unspecified part of left lower leg with fat layer exposed (2) PVD (peripheral vascular disease) Status: Acute Current Visit: No Code(s): I73.9 - Peripheral vascular disease, unspecified (3) Chronic venous insufficiency Status: Acute Current Visit: No Code(s): I87.2 - Venous insufficiency (chronic) (peripheral) (4) Edema, lower extremity Status: Acute Current Visit: No Code(s): R60.0 - Localized edema (5) Pain of left lower extremity Status: Acute Current Visit: No Code(s): M79.605 - Pain in left leg (6) Delayed wound healing Status: Acute Current Visit: No Code(s): T14.8XXD - Other injury of unspecified body region, subsequent encounter Type of Wound Chief Complaint: ulcers to the left lower leg/foot History of Wound: This is a 51-year-old white male presents to wound healing center with a long-standing history of chronic venous insufficiency, chronic venous hypertension, lower extremity edema, lower extremity pain, and 3 ulcer sites to left lower leg/foot. The patient has had multiple ulcerations in the lower extremities bilaterally, related to his chronic venous disease. He also has chronic venous stasis changes. The skin changes include hyperpigmentation. The patient has previously undergone endovenous laser ablation of the left and right great saphenous vein, the small saphenous vein, the left accessory saphenous vein, and an incompetent left calf collar tacker vein located 15 cm p roximal to the left medial malleolus. He is currently wearing graduated compression stockings which are documented to be 20-30 mmHg compression, however, he says the ones he has on are about a year old. He has new ones at home that he has not been wearing. 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 Patient says that he noticed a small area start opening on the top of his left foot about 8-10 months ago. He says he tried to doctor this on his own with old wound care supplies. He says this continued to get slightly worse. Then, about 4 months ago, he noticed the area around the medial malleolus starting to break down, and that has slowly been getting worse too. He also has a small anterior lower leg ulcer. Nothing he has done on his own to treat these areas has helped. He decided he should finally come back to the wound healing center to see if he can get the areas to heal again. Progress of Wound: Ulcers remain fairly stable again this week. Patient has continued with daily Elvira dressing changes and antibiotics. Patient denies any feelings of nausea, vomiting, fever, chills at this time. - Physical Exam Vital Signs Temp Pulse Resp BP 96.9 F L 89 16 142/99 H 08/22/18 08:33 08/22/18 08:33 08/22/18 08:08/22/18 08:33 General: Alert, Oriented x3, Cooperative, No apparent distress Extremities: Capillary Refill Less than 3 Seconds, No Calf Tenderness - Negative Lakisha and Hough sign, Diminished Peripheral Pulses - DP pulses palpable and PT pulses nonpalpable, Edema - Slight lower extremity edema Skin: Ulcer/ Wound - Ulcer to the dorsal medial foot, left medial ankle, and left anterior lower leg with fat layer exposed. Ulcers are stable. The bases of each ulcer site have adherent slough, fibrin, granular tissue as well as surrounding hyperkeratotic tissue. There continues to be no probing to bone, no tracking, no undermining, no surrounding or extending cellulitis, no purulence, no malodor, and no increase in warmth to the ulcer sites at this time. Wound Measurements and Assessment WC - Nurse 1 - General Ulcer Measurement Start: 08/01/18 09:35 Freq: Status: Active Protocol: Activity Type Activity Date Activity User E-Sign Co-Sign Detail Recorded Client Recorded Date Recorded By Document 08/22/18 08:33 [id number] 08/22/18 08:38 08/22/18 08:33 Wound Center Nurse 1 [Ulcer Assessment] #6 LEFT ANKLE- SUPERIOR -Combined with other wound No -Current Size (cm) - Length 0.1 -Current Size (cm) - Width 0.1 -Current Size (cm) - Depth 0.1 -Total Square Cm 0.01 -Photo Taken No -Epithelialization Medium 34-66% -Tunneling No -Undermining/Tunneling No -Circular Undermining No -Necrosis Amt Large (67-100%) -Necrotic Tissue Type Eschar -Temperature (Ara-wound Skin No Abnormality Appearance) (Pt Warm) -Tenderness on Palpation (Ara-wound No Skin Appearance) -Ulcer Cleansing Rinsed/ Irrigated with Saline -Foul Odor after Cleansing No -Anesthetic Used 4% Lidocaine Solution #4 LEFT ANKLE -Combined with other wound No -Current Size (cm) - Length 5.9 -Current Size (cm) - Width 5.7 -Current Size (cm) - Depth 0.3 -Total Square Cm 33.63 -Photo Taken No -Epithelialization Small 1-33% -Tunneling No -Undermining/Tunneling No -Circular Undermining No -Wound Margin Thickened -Granulation Amt Large (67-100%) -Granulation Quality Pale Faxon -Slough/Fibrin Yes -Necrosis Amt None Present (0 %) -Necrotic Tissue Type Adherent Slough -Texture (Ara-wound Skin Appearance) No Abnormality Assessed -Moisture (Ara-wound Skin Appearance No Abnormality ) Assessed -Color (Ara-wound Skin Appearance) No Abnormality Assessed -Temperature (Ara-wound Skin No Abnormality Appearance) (Pt Warm) -Tenderness on Palpation (Ara-wound No Skin Appearance) -Ulcer Cleansing Rinsed/ Irrigated with Saline -Foul Odor after Cleansing No -Anesthetic Used 4% Lidocaine Solution #5 LEFT MEDIAL FOOT- (ABOVE ARCH) -Combined with other wound No -Current Size (cm) - Length 0.7 -Current Size (cm) - Width 0.6 -Current Size (cm) - Depth 0.1 -Total Square Cm 0.42 -Photo Taken No -Epithelialization Small 1-33% -Tunneling No -Undermining/Tunneling No -Circular Undermining No -Temperature (Ara-wound Skin No Abnormality Appearance) (Pt Warm) -Tenderness on Palpation (Ara-wound No Skin Appearance) -Ulcer Cleansing Rinsed/ Irrigated with Saline -Foul Odor after Cleansing No -Anesthetic Used 4% Lidocaine Solution [Edema Assessment] -Lower Limb Edema Present No -Left Calf (cm) 35 -Left Ankle (cm) 24.5 WC - Nurse 2 - General Ulcer CM Notes Start: 08/01/18 09:35 Freq: Status: Active Protocol: Activity Type Activity Date Activity User E-Sign Co-Sign Detail Recorded Client Recorded Date Recorded By Document 08/22/18 09:33 DV [id number] 08/22/18 09:42 DV 08/22/18 09:33 Wound Center Nurse 2 [Procedure/Treatment] #6 LEFT ANKLE- SUPERIOR -Time 09:39 -Correct Patient Yes -Correct Side, Site, Position Yes -Correct Procedure Yes -Procedure Performed Yes -Type of Procedure Debridement -Clinical Debridement Subcutaneous -Post Debridement Size (cm) - Length 0.6 -Post Debridement Size (cm) - Width 0.1 -Post Debridement Size (cm) - Depth 0.1 -Total Square Cm 0.06 -Wound/Ulcer Outcome Not Healed -Ulcer Cleansing Rinsed/ Irrigated with Saline -Foul Odor after Cleansing No -Bioengineered Tissue Yes -Type of bioengineered Tissue EPIFIX -Expiration Date 04/28/23 -Product Lot Number [id number] -Percent Used 100 -Topical Lidocaine (%) 4 -Bleeding Controlled with Pressure -Treatment Response Procedure Tolerated Well #4 LEFT ANKLE -Time 09:39 -Correct Patient Yes -Correct Side, Site, Position Yes -Correct Procedure Yes -Procedure Performed Yes -Type of Procedure Debridement -Clinical Debridement Subcutaneous -Post Debridement Size (cm) - Length 4.8 -Post Debridement Size (cm) - Width 6.8 -Post Debridement Size (cm) - Depth 0.3 -Total Square Cm 32.64 -Wound/Ulcer Outcome Not Healed -Ulcer Cleansing Rinsed/ Irrigated with Saline -Foul Odor after Cleansing No -Bioengineered Tissue Yes -Type of bioengineered Tissue EPIFIX -Bleeding Controlled with Pressure -Treatment Response Procedure Tolerated Well #5 LEFT MEDIAL FOOT- (ABOVE ARCH) -Time 09:39 -Correct Patient Yes -Correct Side, Site, Position Yes -Correct Procedure Yes -Procedure Performed Yes -Type of Procedure Debridement -Clinical Debridement Subcutaneous -Post Debridement Size (cm) - Length 1.8 -Post Debridement Size (cm) - Width 0.8 -Post Debridement Size (cm) - Depth 0.1 -Total Square Cm 1.44 -Wound/Ulcer Outcome Not Healed -Ulcer Cleansing Rinsed/ Irrigated with Saline -Foul Odor after Cleansing No -Bioengineered Tissue Yes -Type of bioengineered Tissue EPIFIX -Bleeding Controlled with Pressure -Treatment Response Procedure Tolerated Well [See Physician Procedure note for Specifics] Musculoskeletal: No Tenderness to Palpation of Joints or Extremities, Tenderness - Some tenderness with manipulation of ulcer sites Neurological: Sensory exam intact to light touch and pain Psych/Mental Status: Normal Affect, Appropriate Debridement Note Post-Debridement Measurements/Treatment WC - Nurse 2 - General Ulcer CM Notes Start: 08/01/18 09:35 Freq: Status: Active Protocol: Activity Type Activity Date Activity User E-Sign Co-Sign Detail Recorded Client Recorded Date Recorded By Document 08/01/18 09:59 DV [id number] 08/01/18 10:04 DV Document 08/08/18 09:40 DV [id number] 08/08/18 09:48 DV Document 08/15/18 10:01 DV [id number] 08/15/18 10:17 DV Document 08/22/18 09:33 DV [id number] 08/22/18 09:42 DV 08/01/18 08/08/18 08/15/18 09:59 09:40 10:01 Wound Center Nurse 2 #6 LEFT ANKLE- SUPERIOR -Time 10:01 09:41 10:02 -Correct Patient Yes Yes Yes -Correct Side, Site, Position Yes Yes Yes -Correct Procedure Yes Yes Yes -Procedure Performed Yes Yes Yes -Type of Procedure Debridement Debridement Debridement -Clinical Debridement Subcutaneous Subcutaneous Subcutaneous -Post Debridement Size (cm) - Length 1.2 1.0 0.1 -Post Debridement Size (cm) - Width 0.2 0.2 0.1 -Post Debridement Size (cm) - Depth 0.2 0.2 0.1 -Total Square Cm 0.24 0.20 0.01 -Wound/Ulcer Outcome Not Healed Not Healed Not Healed -Ulcer Cleansing Rinsed/ Rinsed/ Rinsed/ Irrigated with Irrigated with Irrigated with Saline Saline Saline -Foul Odor after Cleansing No No No -Bioengineered Tissue No No No -Type of bioengineered Tissue -Expiration Date -Product Lot Number -Percent Used -Topical Lidocaine (%) -Bleeding Controlled with Pressure Pressure Pressure -Treatment Response Procedure Procedure Procedure Tolerated Well Tolerated Well Tolerated Well #4 LEFT ANKLE -Time 10:01 09:45 10:02 -Correct Patient Yes Yes Yes -Correct Side, Site, Position Yes Yes Yes -Correct Procedure Yes Yes Yes -Procedure Performed Yes Yes Yes -Type of Procedure Debridement Debridement Debridement -Clinical Debridement Subcutaneous Subcutaneous Subcutaneous -Post Debridement Size (cm) - Length 4.9 5.2 1.5 -Post Debridement Size (cm) - Width 5.6 6.8 1.0 -Post Debridement Size (cm) - Depth 0.3 0.3 0.1 -Total Square Cm 27.44 35.36 1.50 -Wound/Ulcer Outcome Not Healed Not Healed Not Healed -Ulcer Cleansing Rinsed/ Rinsed/ Irrigated with Irrigated with Saline Saline -Foul Odor after Cleansing No No -Bioengineered Tissue No -Type of bioengineered Tissue -Bleeding Controlled with Pressure Pressure Pressure -Treatment Response Procedure Procedure Procedure Tolerated Well Tolerated Well Tolerated Well #5 LEFT MEDIAL FOOT- (ABOVE ARCH) -Time 10:00 09:42 10:04 -Correct Patient Yes Yes Yes -Correct Side, Site, Position Yes Yes Yes -Correct Procedure Yes Yes Yes -Procedure Performed Yes Yes Yes -Type of Procedure Debridement Debridement Debridement -Clinical Debridement Subcutaneous Subcutaneous Subcutaneous -Post Debridement Size (cm) - Length 2.0 1.8 4.9 -Post Debridement Size (cm) - Width 1.0 1.0 6.6 -Post Debridement Size (cm) - Depth 0.2 0.1 0.3 -Total Square Cm 2.00 1.80 32.34 -Wound/Ulcer Outcome Not Healed Not Healed Not Healed -Ulcer Cleansing Rinsed/ Rinsed/ Rinsed/ Irrigated with Irrigated with Irrigated with Saline Saline Saline -Foul Odor after Cleansing No No No -Bioengineered Tissue No -Type of bioengineered Tissue -Bleeding Controlled with Pressure Pressure Pressure -Treatment Response Procedure Procedure Procedure Tolerated Well Tolerated Well Tolerated Well Pain Scale: 0-10 Numeric Is Patient Pain Free? Yes Yes Yes 08/22/18 09:33 Wound Center Nurse 2 #6 LEFT ANKLE- SUPERIOR -Time 09:39 -Correct Patient Yes -Correct Side, Site, Position Yes -Correct Procedure Yes -Procedure Performed Yes -Type of Procedure Debridement -Clinical Debridement Subcutaneous -Post Debridement Size (cm) - Length 0.6 -Post Debridement Size (cm) - Width 0.1 -Post Debridement Size (cm) - Depth 0.1 -Total Square Cm 0.06 -Wound/Ulcer Outcome Not Healed -Ulcer Cleansing Rinsed/ Irrigated with Saline -Foul Odor after Cleansing No -Bioengineered Tissue Yes -Type of bioengineered Tissue EPIFIX -Expiration Date 04/28/23 -Product Lot Number [id number] -Percent Used 100 -Topical Lidocaine (%) 4 -Bleeding Controlled with Pressure -Treatment Response Procedure Tolerated Well #4 LEFT ANKLE -Time 09:39 -Correct Patient Yes -Correct Side, Site, Position Yes -Correct Procedure Yes -Procedure Performed Yes -Type of Procedure Debridement -Clinical Debridement Subcutaneous -Post Debridement Size (cm) - Length 4.8 -Post Debridement Size (cm) - Width 6.8 -Post Debridement Size (cm) - Depth 0.3 -Total Square Cm 32.64 -Wound/Ulcer Outcome Not Healed -Ulcer Cleansing Rinsed/ Irrigated with Saline -Foul Odor after Cleansing No -Bioengineered Tissue Yes -Type of bioengineered Tissue EPIFIX -Bleeding Controlled with Pressure -Treatment Response Procedure Tolerated Well #5 LEFT MEDIAL FOOT- (ABOVE ARCH) -Time 09:39 -Correct Patient Yes -Correct Side, Site, Position Yes -Correct Procedure Yes -Procedure Performed Yes -Type of Procedure Debridement -Clinical Debridement Subcutaneous -Post Debridement Size (cm) - Length 1.8 -Post Debridement Size (cm) - Width 0.8 -Post Debridement Size (cm) - Depth 0.1 -Total Square Cm 1.44 -Wound/Ulcer Outcome Not Healed -Ulcer Cleansing Rinsed/ Irrigated with Saline -Foul Odor after Cleansing No -Bioengineered Tissue Yes -Type of bioengineered Tissue EPIFIX -Bleeding Controlled with Pressure -Treatment Response Procedure Tolerated Well Pain Scale: 0-10 Numeric Is Patient Pain Free? Wound debrided: Left dorsomedial foot Laterality: Left Type of Debridement: Excisional debridement Anesthesia Used: 4% Lidocaine Solution Depth: in the subcutaneous layer Percentage of wound debrided: 100 Instrument Used: 7mm curette Tissue Removed: Adherent slough, fibrin, hyperkeratotic tissue Severity: Fat Layer Exposed Amount of bleeding with debridement: Mild Bleeding Controlled with: Pressure Patient tolerated procedure well - Additional Wound Wound debrided: Left medial ankle Laterality: Left Type of Debridement: Excisional debridement Anesthesia Used: 4% Lidocaine Solution Depth: in the subcutaneous layer Percentage of wound debrided: 100 Instrument Used: 7mm curette Tissue Removed: Adherent slough, fibrin, hyperkeratotic tissue Severity: Fat Layer Exposed Amount of bleeding with debridement: Mild Bleeding Controlled with: Pressure Patient tolerated procedure: Patient tolerated procedure well - Additional Wound Wound debrided: Left anterior lower leg Laterality: Left Type of Debridement: Excisional debridement Anesthesia Used: 4% Lidocaine Solution Depth: in the subcutaneous layer Percentage of wound debrided: 100 Instrument Used: 7mm curette Tissue Removed: Adherent slough, fibrin, hyperkeratotic tissue Severity: Fat Layer Exposed Amount of bleeding with debridement: Mild Bleeding Controlled with: Pressure Patient tolerated procedure: Patient tolerated procedure well Assessment/Plan Assessment: Right medial ankle ulcer resolved. Peripheral vascular occlusive disease. Nonhealing ulcers resolved. Edema Plan: Patient was carefully examined and evaluated today. Subcutaneous debridement was performed to each of the aforementioned ulcer sites as noted in the clinical panel again this week. Once complete, the ulcer sites were carefully cleansed and then epifix #1 was applied to the medial ankle ulcer periphery. This area was then dressed with wound veil, steristrips, and a dry sterile dressing. He was instructed to keep this aspect of the dressing intact below the level of the wound veil for the next week and to keep it dry. The remaining ulcer sites were dressed with Elvira to the bases followed by a dry sterile dressing and Tubigrip for compression. The patient is to continue the dressing changes in this manner on a daily basis. The importance of offloading the ulcer site was discussed at length with this patient again today. He says he is unable to completely stop working, but he does have the option for light duty. He is to continue with this. I stressed the importance of keeping pressure off of all of the ulcer sites and how this will impact his healing potential. Patient was instructed that while not at work, he is to be off his feet as much as possible and to keep the areas elevated. The importance of compression was also discussed with this patient today. Patient finished his Augmentin as well as Flagyl prescriptions. He was instructed to avoid alcohol for 2 weeks after completion of the medication. LEAS studies were reviewed prior to patient's visit and the results are in the patient's chart. I continue to recommend nutritional supplementation with a high-protein diet at this time in order to help optimize ulcer healing potential. Smoking cessation was stressed again today. All signs and symptoms of local and systemic infection were discussed in great detail with the patient today and he was instructed to go to the emergency room immediately should he notice any of these. All questions were answered to the patient's satisfaction. Patient will follow-up in clinic in 1 week to check on progress, or sooner if needed.
== END 2018-08-28 23:59 ==
LOC: WC 08:30
PROVIDERS: Family Provider Internal Medicine Infectious Disease; PCP Internal Medicine Infectious Disease; Referring Provider Podiatrist; Visit Provider Podiatrist
DX: I73.9 Peripheral vascular disease, unspecified (principal); L97.822 Non-pressure chronic ulcer of other part of left lower leg with fat layer exposed; I87.2 Venous insufficiency (chronic) (peripheral); M79.605 Pain in left leg; R60.0 Localized edema
CPT/HCPCS: 11042; 11045; 15275; Q4131

== ENCOUNTER 2018-09-26 08:30 | Outpatient (RCR) | payer BC, SELFPAY ==
[2018-08-29 00:27] VITALS: BP 142/99; PULSE 89; RESP 16; TEMP 36.1
[2018-08-29 09:04] VITALS: BP 153/78; PULSE 90; RESP 18; TEMP 36.2
--- NOTE | 2018-08-29 12:04 | PCM.WC.PN ---
(1) Ulcer of left lower extremity with fat layer exposed Status: Acute Current Visit: No Code(s): L97.922 - Non-pressure chronic ulcer of unspecified part of left lower leg with fat layer exposed (2) PVD (peripheral vascular disease) Status: Acute Current Visit: No Code(s): I73.9 - Peripheral vascular disease, unspecified (3) Chronic venous insufficiency Status: Acute Current Visit: No Code(s): I87.2 - Venous insufficiency (chronic) (peripheral) (4) Edema, lower extremity Status: Acute Current Visit: No Code(s): R60.0 - Localized edema (5) Pain of left lower extremity Status: Acute Current Visit: No Code(s): M79.605 - Pain in left leg (6) Delayed wound healing Status: Acute Current Visit: No Code(s): T14.8XXD - Other injury of unspecified body region, subsequent encounter Type of Wound Chief Complaint: ulcers to the left lower leg/foot History of Wound: This is a 51-year-old white male presents to wound healing center with a long-standing history of chronic venous insufficiency, chronic venous hypertension, lower extremity edema, lower extremity pain, and 3 ulcer sites to left lower leg/foot. The patient has had multiple ulcerations in the lower extremities bilaterally, related to his chronic venous disease. He also has chronic venous stasis changes. The skin changes include hyperpigmentation. The patient has previously undergone endovenous laser ablation of the left and right great saphenous vein, the small saphenous vein, the left accessory saphenous vein, and an incompetent left calf assisted living manager vein located 15 cm proximal to the left medial malleolus. He is currently wearing graduated compression stockings which are documented to be 20-30 mmHg compression, however, he says the ones he has on are about a year old. He has new ones at home that he has not been wearing. 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 Patient says that he noticed a small area start opening on the top of his left foot about 8-10 months ago. He says he tried to doctor this on his own with old wound care supplies. He says this continued to get slightly worse. Then, about 4 months ago, he noticed the area around the medial malleolus starting to break down, and that has slowly been getting worse too. He also has a small anterior lower leg ulcer. Nothing he has done on his own to treat these areas has helped. He decided he should finally come back to the wound healing center to see if he can get the areas to heal again. Progress of Wound: Ulcer to left medial ankle increased in size since last week. The other two ulcer sites have improved. Patient feels he has a reaction to steri strips. Patient kept epifix to medial ankle ulcer intact as instructed. The remaining ulcer sites had daily elvira dressing changes. Patient denies any feelings of nausea, vomiting, fever, chills at this time. - Physical Exam Vital Signs Temp Pulse Resp BP 97.1 F L 90 18 153/78 H 08/29/18 09:04 08/29/18 09:04 08/29/18 09:04 08/29/18 09:04 General: Alert, Oriented x3, Cooperative, No apparent distress Extremities: Capillary Refill Less than 3 Seconds, No Calf Tenderness - Negative Lakisha and Hough sign, Diminished Peripheral Pulses - DP pulses palpable and PT pulses nonpalpable, Edema - Slight lower extremity edema Skin: Ulcer/ Wound - Ulcers to the dorsal medial foot, left medial ankle, and left anterior lower leg with fat layer exposed. Slight increase in size to the medial ankle ulcer. The bases of each ulcer site have adherent slough, fibrin, granular tissue as well as surrounding hyperkeratotic tissue. There continues to be no probing to bone, no tracking, no undermining, no surrounding or extending cellulitis, no purulence, no malodor, and no increase in warmth at this time. Some slight skin irritation is appreciated surrounding the medial ankle ulcer. Wound Measurements and Assessment WC - Nurse 1 - General Ulcer Measurement Start: 08/29/18 09:04 Freq: Status: Active Protocol: Activity Type Activity Date Activity User E-Sign Co-Sign Detail Recorded Client Recorded Date Recorded By Document 08/29/18 09:04 RB [id number] 08/29/18 09:22 RB 08/29/18 09:04 Wound Center Nurse 1 [Ulcer Assessment] #6 LEFT ANKLE- SUPERIOR -Combined with other wound No -Current Size (cm) - Length 1.2 -Current Size (cm) - Width 0.3 -Current Size (cm) - Depth 0.2 -Total Square Cm 0.36 -Photo Taken No -Tunneling No -Undermining/Tunneling No -Circular Undermining No -Wound Margin Thickened & Rolled Under -Granulation Amt Medium (34-66%) -Granulation Quality Washam -Slough/Fibrin Yes -Necrosis Amt Small (1-33%) -Necrotic Tissue Type Adherent Slough -Structure Exposed N/A -Texture (Ara-wound Skin Appearance) Assessed Friable -Moisture (Ara-wound Skin Appearance Dry/Scaly ) -Color (Ara-wound Skin Appearance) Assessed -Temperature (Ara-wound Skin No Abnormality Appearance) (Pt Warm) -Tenderness on Palpation (Ara-wound No Skin Appearance) -Ulcer Cleansing Wound Cleanser -Foul Odor after Cleansing No -Anesthetic Used 4% Lidocaine Solution #4 LEFT ANKLE -Combined with other wound No -Current Size (cm) - Length 4.7 -Current Size (cm) - Width 6.2 -Current Size (cm) - Depth 0.4 -Total Square Cm 29.14 -Photo Taken No -Tunneling No -Undermining/Tunneling No -Circular Undermining No -Exudate Amt Medium (34-66%) -Exudate Type Serosanguineous -Wound Margin Thickened & Rolled Under -Granulation Amt Large (67-100%) -Granulation Quality Washam -Slough/Fibrin Yes -Necrosis Amt Medium (34-66%) -Necrotic Tissue Type Adherent Slough -Structure Exposed N/A -Texture (Ara-wound Skin Appearance) Assessed Friable -Moisture (Ara-wound Skin Appearance Maceration ) Dry/Scaly -Color (Ara-wound Skin Appearance) Assessed Hemosiderin Staining -Temperature (Ara-wound Skin No Abnormality Appearance) (Pt Warm) -Tenderness on Palpation (Ara-wound No Skin Appearance) -Ulcer Cleansing Wound Cleanser -Foul Odor after Cleansing No -Anesthetic Used 4% Lidocaine Solution #5 LEFT MEDIAL FOOT- (ABOVE ARCH) -Combined with other wound No -Current Size (cm) - Length 0.8 -Current Size (cm) - Width 0.5 -Current Size (cm) - Depth 0.1 -Total Square Cm 0.40 -Photo Taken No -Tunneling No -Undermining/Tunneling No -Circular Undermining No -Exudate Amt Small (1-33%) -Exudate Type Serosanguineous -Wound Margin Distinct, Outline Attached -Granulation Amt Medium (34-66%) -Granulation Quality Washam -Necrosis Amt Small (1-33%) -Necrotic Tissue Type Adherent Slough -Structure Exposed N/A -Texture (Ara-wound Skin Appearance) Assessed -Moisture (Ara-wound Skin Appearance Assessed ) Dry/Scaly -Color (Ara-wound Skin Appearance) Assessed -Temperature (Ara-wound Skin No Abnormality Appearance) (Pt Warm) -Tenderness on Palpation (Ara-wound No Skin Appearance) -Ulcer Cleansing Wound Cleanser -Foul Odor after Cleansing No -Anesthetic Used 4% Lidocaine Solution [Edema Assessment] -Lower Limb Edema Present Yes -Left Calf (cm) 36.5 -Left Ankle (cm) 24.5 WC - Nurse 2 - General Ulcer CM Notes Start: 08/29/18 09:04 Freq: Status: Active Protocol: Activity Type Activity Date Activity User E-Sign Co-Sign Detail Recorded Client Recorded Date Recorded By Document 08/29/18 09:41 DV [id number] 08/29/18 09:59 DV 08/29/18 09:41 Wound Center Nurse 2 [Procedure/Treatment] #6 LEFT ANKLE- SUPERIOR -Time 09:44 -Correct Patient Yes -Correct Side, Site, Position Yes -Correct Procedure Yes -Procedure Performed Yes -Type of Procedure Debridement -Clinical Debridement Subcutaneous -Post Debridement Size (cm) - Length 0.5 -Post Debridement Size (cm) - Width 0.6 -Post Debridement Size (cm) - Depth 0.1 -Total Square Cm 0.30 -Wound/Ulcer Outcome Not Healed -Foul Odor after Cleansing No -Bioengineered Tissue No -Bleeding Controlled with Pressure -Treatment Response Procedure Tolerated Well #4 LEFT ANKLE -Time 09:53 -Correct Patient Yes -Correct Side, Site, Position Yes -Correct Procedure Yes -Procedure Performed Yes -Type of Procedure Debridement -Clinical Debridement Subcutaneous -Post Debridement Size (cm) - Length 5.6 -Post Debridement Size (cm) - Width 7.5 -Post Debridement Size (cm) - Depth 0.3 -Total Square Cm 42.00 -Wound/Ulcer Outcome Not Healed -Ulcer Cleansing Rinsed/ Irrigated with Saline -Foul Odor after Cleansing No -Bioengineered Tissue Yes -Type of bioengineered Tissue EPIFIX -Expiration Date 04/28/23 -Product Lot Number [id number] -Percent Used 100 -Saline Lot Number [id number] -Topical Lidocaine (%) 4 -Bleeding Controlled with Pressure -Treatment Response Procedure Tolerated Well #5 LEFT MEDIAL FOOT- (ABOVE ARCH) -Time 09:51 -Correct Patient Yes -Correct Side, Site, Position Yes -Correct Procedure Yes -Procedure Performed Yes -Type of Procedure Debridement -Clinical Debridement Subcutaneous -Post Debridement Size (cm) - Length 0.7 -Post Debridement Size (cm) - Width 0.6 -Post Debridement Size (cm) - Depth 0.1 -Total Square Cm 0.42 -Wound/Ulcer Outcome Not Healed -Ulcer Cleansing Rinsed/ Irrigated with Saline -Foul Odor after Cleansing No -Bioengineered Tissue No -Bleeding Controlled with Pressure -Treatment Response Procedure Tolerated Well [See Physician Procedure note for Specifics] Pain Scale: 0-10 Numeric [Pain] -Is Patient Pain Free? Yes Musculoskeletal: No Tenderness to Palpation of Joints or Extremities, Tenderness - Some tenderness with manipulation of ulcer sites Neurological: Sensory exam intact to light touch and pain Psych/Mental Status: Normal Affect, Appropriate Debridement Note Post-Debridement Measurements/Treatment WC - Nurse 2 - General Ulcer CM Notes Start: 08/29/18 09:04 Freq: Status: Active Protocol: Activity Type Activity Date Activity User E-Sign Co-Sign Detail Recorded Client Recorded Date Recorded By Document 08/29/18 09:41 DV [id number] 08/29/18 09:59 DV 08/29/18 09:41 Wound Center Nurse 2 #6 LEFT ANKLE- SUPERIOR -Time 09:44 -Correct Patient Yes -Correct Side, Site, Position Yes -Correct Procedure Yes -Procedure Performed Yes -Type of Procedure Debridement -Clinical Debridement Subcutaneous -Post Debridement Size (cm) - Length 0.5 -Post Debridement Size (cm) - Width 0.6 -Post Debridement Size (cm) - Depth 0.1 -Total Square Cm 0.30 -Wound/Ulcer Outcome Not Healed -Foul Odor after Cleansing No -Bioengineered Tissue No -Bleeding Controlled with Pressure -Treatment Response Procedure Tolerated Well #4 LEFT ANKLE -Time 09:53 -Correct Patient Yes -Correct Side, Site, Position Yes -Correct Procedure Yes -Procedure Performed Yes -Type of Procedure Debridement -Clinical Debridement Subcutaneous -Post Debridement Size (cm) - Length 5.6 -Post Debridement Size (cm) - Width 7.5 -Post Debridement Size (cm) - Depth 0.3 -Total Square Cm 42.00 -Wound/Ulcer Outcome Not Healed -Ulcer Cleansing Rinsed/ Irrigated with Saline -Foul Odor after Cleansing No -Bioengineered Tissue Yes -Type of bioengineered Tissue EPIFIX -Expiration Date 04/28/23 -Product Lot Number [id number] -Percent Used 100 -Saline Lot Number [id number] -Topical Lidocaine (%) 4 -Bleeding Controlled with Pressure -Treatment Response Procedure Tolerated Well #5 LEFT MEDIAL FOOT- (ABOVE ARCH) -Time 09:51 -Correct Patient Yes -Correct Side, Site, Position Yes -Correct Procedure Yes -Procedure Performed Yes -Type of Procedure Debridement -Clinical Debridement Subcutaneous -Post Debridement Size (cm) - Length 0.7 -Post Debridement Size (cm) - Width 0.6 -Post Debridement Size (cm) - Depth 0.1 -Total Square Cm 0.42 -Wound/Ulcer Outcome Not Healed -Ulcer Cleansing Rinsed/ Irrigated with Saline -Foul Odor after Cleansing No -Bioengineered Tissue No -Bleeding Controlled with Pressure -Treatment Response Procedure Tolerated Well Pain Scale: 0-10 Numeric Is Patient Pain Free? Yes Wound debrided: Left dorsomedial foot Laterality: Left Type of Debridement: Excisional debridement Anesthesia Used: 4% Lidocaine Solution Depth: in the subcutaneous layer Percentage of wound debrided: 100 Instrument Used: 7mm curette Tissue Removed: Adherent slough, fibrin, hyperkeratotic tissue Severity: Fat Layer Exposed Amount of bleeding with debridement: Mild Bleeding Controlled with: Pressure Patient tolerated procedure well - Additional Wound Wound debrided: Left medial ankle Laterality: Left Type of Debridement: Excisional debridement Anesthesia Used: 4% Lidocaine Solution Depth: in the subcutaneous layer Percentage of wound debrided: 100 Instrument Used: 7mm curette Tissue Removed: Adherent slough, fibrin, hyperkeratotic tissue Severity: Fat Layer Exposed Amount of bleeding with debridement: Mild Bleeding Controlled with: Pressure Patient tolerated procedure: Patient tolerated procedure well - Additional Wound Wound debrided: Left anterior lower leg Laterality: Left Type of Debridement: Excisional debridement Anesthesia Used: 4% Lidocaine Solution Depth: in the subcutaneous layer Percentage of wound debrided: 100 Instrument Used: 7mm curette Tissue Removed: Adherent slough, fibrin, hyperkeratotic tissue Severity: Fat Layer Exposed Amount of bleeding with debridement: Mild Bleeding Controlled with: Pressure Patient tolerated procedure: Patient tolerated procedure well Assessment/Plan Assessment: Right medial ankle ulcer resolved. Peripheral vascular occlusive disease. Nonhealing ulcers resolved. Edema Plan: Patient was carefully examined and evaluated today. Subcutaneous debridement was performed to each of the aforementioned ulcer sites as noted in the clinical panel again this week. Once complete, the ulcer sites were carefully cleansed and then epifix #2 was applied to the medial ankle ulcer periphery. This area was then dressed with wound veil, paper tape, and a dry sterile dressing. He was instructed to keep this aspect of the dressing intact below the level of the wound veil for the next week and to keep it dry. He says that he has had issues with adhesives and tape in the past and that he does well with paper tape, but feels he may have had a reaction to the steri strips last week. The remaining ulcer sites were dressed with Elvira to the bases followed by a dry sterile dressing and Tubigrip for compression. The patient is to continue the dressing changes in this manner on a daily basis. The importance of offloading the ulcer site was discussed at length with this patient again today. He says he is unable to completely stop working, but he does have the option for light duty. He is to continue with this. I stressed the importance of keeping pressure off of all of the ulcer sites and how this will impact his healing potential. Patient was instructed that while not at work, he is to be off his feet as much as possible and to keep the areas elevated. The importance of compression was also discussed with this patient today. Patient finished his Augmentin as well as Flagyl prescriptions. He was instructed to avoid alcohol for 2 weeks after completion of the medication. LEAS studies were reviewed prior to patient's visit and the results are in the patient's chart. I continue to recommend nutritional supplementation with a high-protein diet at this time in order to help optimize ulcer healing potential. Smoking cessation was stressed again today. All signs and symptoms of local and systemic infection were discussed in great detail with the patient today and he was instructed to go to the emergency room immediately should he notice any of these. All questions were answered to the patient's satisfaction. Patient will follow-up in clinic in 1 week to check on progress, or sooner if needed.
[2018-08-29 20:12] LABS: M R Staph aureus DNA By PCR POSITIVE (Negative); Probe Check PASS; Staph aureus DNA By PCR POSITIVE (Negative)
[2018-09-05 09:48] VITALS: BP 137/81; PULSE 84; RESP 18; TEMP 36.8
--- NOTE | 2018-09-05 10:45 | PCM.WC.PN ---
(1) Ulcer of left lower extremity with fat layer exposed Status: Acute Current Visit: No Code(s): L97.922 - Non-pressure chronic ulcer of unspecified part of left lower leg with fat layer exposed (2) PVD (peripheral vascular disease) Status: Acute Current Visit: No Code(s): I73.9 - Peripheral vascular disease, unspecified (3) Chronic venous insufficiency Status: Acute Current Visit: No Code(s): I87.2 - Venous insufficiency (chronic) (peripheral) (4) Edema, lower extremity Status: Acute Current Visit: No Code(s): R60.0 - Localized edema (5) Pain of left lower extremity Status: Acute Current Visit: No Code(s): M79.605 - Pain in left leg (6) Delayed wound healing Status: Acute Current Visit: No Code(s): T14.8XXD - Other injury of unspecified body region, subsequent encounter Type of Wound Chief Complaint: ulcers to the left lower leg/foot History of Wound: This is a 51-year-old white male presents to wound healing center with a long-standing history of chronic venous insufficiency, chronic venous hypertension, lower extremity edema, lower extremity pain, and 3 ulcer sites to left lower leg/foot. The patient has had multiple ulcerations in the lower extremities bilaterally, related to his chronic venous disease. He also has chronic venous stasis changes. The skin changes include hyperpigmentation. 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 He is currently wearing graduated compression stockings which are documented to be 20-30 mmHg compression, however, he says the ones he has on are about a year old. He has new ones at home that he has not been wearing. 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 Patient says that he noticed a small area start opening on the top of his left foot about 8-10 months ago. He says he tried to doctor this on his own with old wound care supplies. He says this continued to get slightly worse. Then, about 4 months ago, he noticed the area around the medial malleolus starting to break down, and that has slowly been getting worse too. He also has a small anterior lower leg ulcer. Nothing he has done on his own to treat these areas has helped. He decided he should finally come back to the wound healing center to see if he can get the areas to heal again. Progress of Wound: Ulcer to left medial ankle stable since last week. The other two ulcer sites have improved. Patient kept epifix to medial ankle ulcer intact as instructed. The remaining ulcer sites had daily elvira dressing changes. Patient denies any feelings of nausea, vomiting, fever, chills at this time. - Physical Exam Vital Signs Temp Pulse Resp BP 98.2 F 84 18 137/81 H 09/05/18 09:48 09/05/18 09:48 09/05/18 09:48 09/05/18 09:48 General: Alert, Oriented x3, Cooperative, No apparent distress Extremities: Capillary Refill Less than 3 Seconds, No Calf Tenderness - Negative Lakisha and Hough sign, Diminished Peripheral Pulses - DP pulses palpable and PT pulses nonpalpable, Edema - Slight lower extremity edema Skin: Ulcer/ Wound - Ulcers to dorsomedial foot, left medial ankle, and left anterior lower leg with fat layer exposed. The bases of each ulcer site demonstrate adherent slough, fibrin, granular tissue, biofilm as well as surrounding hyperkeratotic tissue. There is no probing to bone, no tracking, no undermining, no surrounding or extending cellulitis, no purulence, no malodor, no increase in warmth at this time. Serous drainage appreciated. Wound Measurements and Assessment WC - Nurse 1 - General Ulcer Measurement Start: 08/29/18 09:04 Freq: Status: Active Protocol: Activity Type Activity Date Activity User E-Sign Co-Sign Detail Recorded Client Recorded Date Recorded By Document 09/05/18 09:48 RB [id number] 09/05/18 09:53 RB 09/05/18 09:48 Wound Center Nurse 1 [Ulcer Assessment] #6 LEFT ANKLE- SUPERIOR -Combined with other wound No -Current Size (cm) - Length 1 -Current Size (cm) - Width 0.2 -Current Size (cm) - Depth 0.1 -Total Square Cm 0.2 -Photo Taken No -Tunneling No -Undermining/Tunneling No -Circular Undermining No -Classification - Thickness Full Thickness without Exposed Support Structure -Exudate Amt Medium (34-66%) -Exudate Type Serosanguineous -Wound Margin Distinct, Outline Attached -Granulation Amt Medium (34-66%) -Granulation Quality [place] -Slough/Fibrin Yes -Necrosis Amt Medium (34-66%) -Necrotic Tissue Type Adherent Slough -Structure Exposed N/A -Texture (Ara-wound Skin Appearance) Assessed -Moisture (Ara-wound Skin Appearance Dry/Scaly ) -Color (Ara-wound Skin Appearance) Assessed -Temperature (Ara-wound Skin No Abnormality Appearance) (Pt Warm) -Tenderness on Palpation (Ara-wound No Skin Appearance) -Ulcer Cleansing Wound Cleanser -Foul Odor after Cleansing No -Anesthetic Used 4% Lidocaine Solution #4 LEFT ANKLE -Combined with other wound No -Current Size (cm) - Length 7.6 -Current Size (cm) - Width 6.6 -Current Size (cm) - Depth 0.5 -Total Square Cm 50.16 -Photo Taken No -Tunneling No -Undermining/Tunneling No -Circular Undermining No -Classification - Thickness Full Thickness without Exposed Support Structure -Exudate Amt Large (67-100%) -Exudate Type Serosanguineous -Wound Margin Thickened & Rolled Under -Granulation Amt Medium (34-66%) -Granulation Quality [place] -Slough/Fibrin Yes -Necrosis Amt Medium (34-66%) -Necrotic Tissue Type Adherent Slough -Structure Exposed N/A -Texture (Ara-wound Skin Appearance) Assessed -Moisture (Ara-wound Skin Appearance Dry/Scaly ) -Color (Ara-wound Skin Appearance) Assessed -Temperature (Ara-wound Skin No Abnormality Appearance) (Pt Warm) -Tenderness on Palpation (Ara-wound No Skin Appearance) -Ulcer Cleansing Wound Cleanser -Foul Odor after Cleansing No -Anesthetic Used 4% Lidocaine Solution #5 LEFT MEDIAL FOOT- (ABOVE ARCH) -Combined with other wound No -Current Size (cm) - Length 1.1 -Current Size (cm) - Width 0.3 -Current Size (cm) - Depth 0.1 -Total Square Cm 0.33 -Photo Taken No -Tunneling No -Undermining/Tunneling No -Circular Undermining No -Classification - Thickness Full Thickness without Exposed Support Structure -Exudate Amt Small (1-33%) -Exudate Type Serosanguineous -Wound Margin Distinct, Outline Attached -Granulation Amt Medium (34-66%) -Granulation Quality [place] -Slough/Fibrin Yes -Necrosis Amt Small (1-33%) -Necrotic Tissue Type Adherent Slough -Structure Exposed N/A -Texture (Ara-wound Skin Appearance) Assessed -Moisture (Ara-wound Skin Appearance Assessed ) -Color (Ara-wound Skin Appearance) Assessed -Temperature (Ara-wound Skin No Abnormality Appearance) (Pt Warm) -Tenderness on Palpation (Ara-wound No Skin Appearance) -Ulcer Cleansing Wound Cleanser -Foul Odor after Cleansing No -Anesthetic Used 4% Lidocaine Solution [Edema Assessment] -Lower Limb Edema Present Yes WC - Nurse 2 - General Ulcer CM Notes Start: 08/29/18 09:04 Freq: Status: Active Protocol: Activity Type Activity Date Activity User E-Sign Co-Sign Detail Recorded Client Recorded Date Recorded By Document 09/05/18 10:31 DV [id number] 09/05/18 10:35 DV 09/05/18 10:31 Wound Center Nurse 2 [Procedure/Treatment] #6 LEFT ANKLE- SUPERIOR -Time 10:32 -Correct Patient Yes -Correct Side, Site, Position Yes -Correct Procedure Yes -Procedure Performed Yes -Type of Procedure Debridement -Clinical Debridement Subcutaneous -Post Debridement Size (cm) - Length 0.8 -Post Debridement Size (cm) - Width 0.2 -Post Debridement Size (cm) - Depth 0.1 -Total Square Cm 0.16 -Wound/Ulcer Outcome Not Healed -Ulcer Cleansing Rinsed/ Irrigated with Saline -Foul Odor after Cleansing No -Bioengineered Tissue No -Bleeding Controlled with Pressure -Treatment Response Procedure Tolerated Well #4 LEFT ANKLE -Time 10:32 -Correct Patient Yes -Correct Side, Site, Position Yes -Correct Procedure Yes -Procedure Performed Yes -Type of Procedure Debridement -Clinical Debridement Subcutaneous -Post Debridement Size (cm) - Length 6.0 -Post Debridement Size (cm) - Width 8.1 -Post Debridement Size (cm) - Depth 0.3 -Total Square Cm 48.60 -Wound/Ulcer Outcome Not Healed -Ulcer Cleansing Rinsed/ Irrigated with Saline -Foul Odor after Cleansing No -Bioengineered Tissue No -Bleeding Controlled with Pressure -Treatment Response Procedure Tolerated Well #5 LEFT MEDIAL FOOT- (ABOVE ARCH) -Time 10:32 -Correct Patient Yes -Correct Side, Site, Position Yes -Correct Procedure Yes -Procedure Performed Yes -Type of Procedure Debridement -Clinical Debridement Subcutaneous -Post Debridement Size (cm) - Length 1.4 -Post Debridement Size (cm) - Width 0.3 -Post Debridement Size (cm) - Depth 0.1 -Total Square Cm 0.42 -Wound/Ulcer Outcome Not Healed -Ulcer Cleansing Rinsed/ Irrigated with Saline -Foul Odor after Cleansing No -Bioengineered Tissue No -Bleeding Controlled with Pressure -Treatment Response Procedure Tolerated Well [See Physician Procedure note for Specifics] Pain Scale: 0-10 Numeric [Pain] -Is Patient Pain Free? Yes Musculoskeletal: No Tenderness to Palpation of Joints or Extremities, Tenderness - Some tenderness with manipulation of ulcer sites Neurological: Sensory exam intact to light touch and pain Psych/Mental Status: Normal Affect, Appropriate Debridement Note Post-Debridement Measurements/Treatment WC - Nurse 2 - General Ulcer CM Notes Start: 08/29/18 09:04 Freq: Status: Active Protocol: Activity Type Activity Date Activity User E-Sign Co-Sign Detail Recorded Client Recorded Date Recorded By Document 08/29/18 09:41 DV [id number] 08/29/18 09:59 DV Document 09/05/18 10:31 DV [id number] 09/05/18 10:35 DV 08/29/18 09/05/18 09:41 10:31 Wound Center Nurse 2 #6 LEFT ANKLE- SUPERIOR -Time 09:44 10:32 -Correct Patient Yes Yes -Correct Side, Site, Position Yes Yes -Correct Procedure Yes Yes -Procedure Performed Yes Yes -Type of Procedure Debridement Debridement -Clinical Debridement Subcutaneous Subcutaneous -Post Debridement Size (cm) - Length 0.5 0.8 -Post Debridement Size (cm) - Width 0.6 0.2 -Post Debridement Size (cm) - Depth 0.1 0.1 -Total Square Cm 0.30 0.16 -Wound/Ulcer Outcome Not Healed Not Healed -Ulcer Cleansing Rinsed/ Irrigated with Saline -Foul Odor after Cleansing No No -Bioengineered Tissue No No -Bleeding Controlled with Pressure Pressure -Treatment Response Procedure Procedure Tolerated Well Tolerated Well #4 LEFT ANKLE -Time 09:53 10:32 -Correct Patient Yes Yes -Correct Side, Site, Position Yes Yes -Correct Procedure Yes Yes -Procedure Performed Yes Yes -Type of Procedure Debridement Debridement -Clinical Debridement Subcutaneous Subcutaneous -Post Debridement Size (cm) - Length 5.6 6.0 -Post Debridement Size (cm) - Width 7.5 8.1 -Post Debridement Size (cm) - Depth 0.3 0.3 -Total Square Cm 42.00 48.60 -Wound/Ulcer Outcome Not Healed Not Healed -Ulcer Cleansing Rinsed/ Rinsed/ Irrigated with Irrigated with Saline Saline -Foul Odor after Cleansing No No -Bioengineered Tissue Yes No -Type of bioengineered Tissue EPIFIX -Expiration Date 04/28/23 -Product Lot Number [id number] -Percent Used 100 -Saline Lot Number [id number] -Topical Lidocaine (%) 4 -Bleeding Controlled with Pressure Pressure -Treatment Response Procedure Procedure Tolerated Well Tolerated Well #5 LEFT MEDIAL FOOT- (ABOVE ARCH) -Time 09:51 10:32 -Correct Patient Yes Yes -Correct Side, Site, Position Yes Yes -Correct Procedure Yes Yes -Procedure Performed Yes Yes -Type of Procedure Debridement Debridement -Clinical Debridement Subcutaneous Subcutaneous -Post Debridement Size (cm) - Length 0.7 1.4 -Post Debridement Size (cm) - Width 0.6 0.3 -Post Debridement Size (cm) - Depth 0.1 0.1 -Total Square Cm 0.42 0.42 -Wound/Ulcer Outcome Not Healed Not Healed -Ulcer Cleansing Rinsed/ Rinsed/ Irrigated with Irrigated with Saline Saline -Foul Odor after Cleansing No No -Bioengineered Tissue No No -Bleeding Controlled with Pressure Pressure -Treatment Response Procedure Procedure Tolerated Well Tolerated Well Pain Scale: 0-10 Numeric Is Patient Pain Free? Yes Yes Wound debrided: Left dorsomedial foot Laterality: Left Type of Debridement: Excisional debridement Anesthesia Used: 4% Lidocaine Solution Depth: in the subcutaneous layer Percentage of wound debrided: 100 Instrument Used: 7mm curette Tissue Removed: Adherent slough, fibrin, hyperkeratotic tissue Severity: Fat Layer Exposed Amount of bleeding with debridement: Mild Bleeding Controlled with: Pressure Patient tolerated procedure well - Additional Wound Wound debrided: Left medial ankle Laterality: Left Type of Debridement: Excisional debridement Anesthesia Used: 4% Lidocaine Solution Depth: in the subcutaneous layer Percentage of wound debrided: 100 Instrument Used: 7mm curette Tissue Removed: Adherent slough, fibrin, hyperkeratotic tissue Severity: Fat Layer Exposed Amount of bleeding with debridement: Mild Bleeding Controlled with: Pressure Patient tolerated procedure: Patient tolerated procedure well - Additional Wound Wound debrided: Left anterior lower leg Laterality: Left Type of Debridement: Excisional debridement Anesthesia Used: 4% Lidocaine Solution Depth: in the subcutaneous layer Percentage of wound debrided: 100 Instrument Used: 7mm curette Tissue Removed: Adherent slough, fibrin, hyperkeratotic tissue Severity: Fat Layer Exposed Amount of bleeding with debridement: Mild Bleeding Controlled with: Pressure Patient tolerated procedure: Patient tolerated procedure well Assessment/Plan Assessment: Right medial ankle ulcer resolved. Peripheral vascular occlusive disease. Nonhealing ulcers resolved. Edema Plan: Patient was carefully examined and evaluated today. Subcutaneous debridement was performed to each of the aforementioned ulcer sites as noted in the clinical panel again this week. Once complete, the ulcer sites were carefully cleansed and then all ulcer sites were dressed with Elvira to the bases followed by a dry sterile dressing and Tubigrip for compression. The patient is to continue the dressing changes in this manner on a daily basis. The importance of offloading the ulcer site was discussed at length with this patient again today. He says he is unable to completely stop working, but he does have the option for light duty. He is to continue with this. I stressed the importance of keeping pressure off of all of the ulcer sites and how this will impact his healing potential. Patient was instructed that while not at work, he is to be off his feet as much as possible and to keep the areas elevated. The importance of compression was also discussed with this patient today. Patient had ulcer site recultured last week, and the new results are in the patient's chart. Dr. Farris saw the patient today as well and started the patient on levaquin and augmentin with instructions for the patient to call him with any issues. LEAS studies were reviewed prior to patient's visit and the results are in the patient's chart. I continue to recommend nutritional supplementation with a high-protein diet at this time in order to help optimize ulcer healing potential. Smoking cessation was stressed again today. All signs and symptoms of local and systemic infection were discussed in great detail with the patient today and he was instructed to go to the emergency room immediately should he notice any of these. All questions were answered to the patient's satisfaction. Patient will follow-up in clinic in 1 week to check on progress, or sooner if needed.
--- NOTE | 2018-09-05 22:04 | PCM.PN.ID ---
Subjective: Ongoing pain and purulent/bloody drainage from ankle ulcer. No fever. On augmentin without much change. No n/v/d. - Physical Exam General: Alert, Cooperative, No apparent distress Lungs: Clear to auscultation, Normal air movement Cardiovascular: Regular rate, Regular Rhythm Abdomen: Soft, Non Tender, Non-Distended Skin: Ulcer/ Wound - L medial ankle with large ulcer, no current drainage Vital Signs Temp Pulse Resp BP 98.2 F 84 18 137/81 H 09/05/18 09:48 09/05/18 09:48 09/05/18 09:48 09/05/18 09:48 Medical Necessity - Tobacco Use Smoking Status: Heavy Smoker (>10/day) Route of nutrition/ use of supplements: [] Nutritional Intake: [] IV Site: [] Sam[place]go Catheter: [] - Assessment/Plan Antibiotics: [] Assessment/Plan: [] L medial ankle ulcer, now infected, recent cx with mrsa, PsA, klebs, and anaerobes. Itching with cipro, but thinks he tolerated levaquin in past. Will write for 10 day course of levaquin and flagyl. May need further imaging if he does not improve. Per Dr. Elkins, wound does not probe to bone. Will follow.
[2018-09-12 09:28] VITALS: BP 158/98; PULSE 97; RESP 18; TEMP 36.6
--- NOTE | 2018-09-12 10:44 | PCM.WC.PN ---
(1) Ulcer of left lower extremity with fat layer exposed Status: Acute Current Visit: No Code(s): L97.922 - Non-pressure chronic ulcer of unspecified part of left lower leg with fat layer exposed (2) PVD (peripheral vascular disease) Status: Acute Current Visit: No Code(s): I73.9 - Peripheral vascular disease, unspecified (3) Chronic venous insufficiency Status: Acute Current Visit: No Code(s): I87.2 - Venous insufficiency (chronic) (peripheral) (4) Edema, lower extremity Status: Acute Current Visit: No Code(s): R60.0 - Localized edema (5) Pain of left lower extremity Status: Acute Current Visit: No Code(s): M79.605 - Pain in left leg (6) Delayed wound healing Status: Acute Current Visit: No Code(s): T14.8XXD - Other injury of unspecified body region, subsequent encounter Type of Wound Chief Complaint: ulcers to the left lower leg/foot History of Wound: This is a 51-year-old white male presents to wound healing center with a long-standing history of chronic venous insufficiency, chronic venous hypertension, lower extremity edema, lower extremity pain, and 3 ulcer sites to left lower leg/foot. The patient has had multiple ulcerations in the lower extremities bilaterally, related to his chronic venous disease. He also has chronic venous stasis changes. The skin changes include hyperpigmentation. The patient has previously undergone endovenous laser ablation of the left and right great saphenous vein, the small saphenous vein, the left accessory saphenous vein, and an incompetent left calf product development technician vein located 15 cm proximal to the left medial malleolus. He is currently wearing graduated compression stockings which are documented to be 20-30 mmHg compression, however, he says the ones he has on are about a year old. He has new ones at home that he has not been wearing. 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 Patient says that he noticed a small area start opening on the top of his left foot about 8-10 months ago. He says he tried to doctor this on his own with old wound care supplies. He says this continued to get slightly worse. Then, about 4 months ago, he noticed the area around the medial malleolus starting to break down, and that has slowly been getting worse too. He also has a small anterior lower leg ulcer. Nothing he has done on his own to treat these areas has helped. He decided he should finally come back to the wound healing center to see if he can get the areas to heal again. Progress of Wound: Ulcer to left medial ankle stable since last week. The other two ulcer sites have improved again. Patient has been taking antibiotics and having daily elvira dressing changes. Patient denies any feelings of nausea, vomiting, fever, chills at this time. - Physical Exam Vital Signs Temp Pulse Resp BP 98 F 97 18 158/98 H 09/12/18 09:28 09/12/18 09:09/12/18 09:09/12/18 09:28 General: Alert, Oriented x3, Cooperative, No apparent distress Extremities: Capillary Refill Less than 3 Seconds, No Calf Tenderness - Negative Lakisha and Hough sign, Diminished Peripheral Pulses - DP pulses palpable and PT pulses nonpalpable, Edema - Slight lower extremity edema Skin: Ulcer/ Wound - Ulcer to dorsomedial foot, left medial ankle, and left anterior lower leg with fat layer exposed. The bases of each ulcer site show adherent slough, fibrin, granular tissue, biofilm, as well as some slight surrounding hyperkeratotic tissue. There continues to be no probing to bone, no tracking, no undermining, no surrounding or extending cellulitis, no purulence, no malodor, no increase in warmth. Improved serous drainage. Wound Measurements and Assessment WC - Nurse 1 - General Ulcer Measurement Start: 08/29/18 09:04 Freq: Status: Active Protocol: Activity Type Activity Date Activity User E-Sign Co-Sign Detail Recorded Client Recorded Date Recorded By Document 09/12/18 09:28 [facility] [id number] 09/12/18 09:34 [facility] 09/12/18 09:28 Wound Center Nurse 1 [Ulcer Assessment] #6 LEFT ANKLE- SUPERIOR -Combined with other wound No -Current Size (cm) - Length 0.1 -Current Size (cm) - Width 0.1 -Current Size (cm) - Depth 0.1 -Total Square Cm 0.01 -Photo Taken No -Tunneling No -Undermining/Tunneling No -Circular Undermining No -Exudate Amt Small (1-33%) -Exudate Type Serosanguineous -Wound Margin Distinct, Outline Attached -Granulation Amt Small (1-33%) -Granulation Quality [place] -Slough/Fibrin Yes -Necrosis Amt Large (67-100%) -Necrotic Tissue Type Adherent Slough -Structure Exposed N/A -Texture (Ara-wound Skin Appearance) Assessed -Moisture (Ara-wound Skin Appearance Dry/Scaly ) -Color (Ara-wound Skin Appearance) Assessed -Temperature (Ara-wound Skin No Abnormality Appearance) (Pt Warm) -Tenderness on Palpation (Ara-wound No Skin Appearance) -Ulcer Cleansing Rinsed/ Irrigated with Saline -Foul Odor after Cleansing No -Anesthetic Used 4% Lidocaine Solution #4 LEFT ANKLE -Combined with other wound No -Current Size (cm) - Length 7.2 -Current Size (cm) - Width 7.4 -Current Size (cm) - Depth 0.4 -Total Square Cm 53.28 -Photo Taken No -Tunneling No -Undermining/Tunneling No -Circular Undermining No -Exudate Amt Large (67-100%) -Exudate Type Serosanguineous -Wound Margin Distinct, Outline Attached -Granulation Amt Large (67-100%) -Granulation Quality [place] -Slough/Fibrin Yes -Necrosis Amt Medium (34-66%) -Necrotic Tissue Type Adherent Slough -Structure Exposed N/A -Texture (Ara-wound Skin Appearance) Assessed Friable -Moisture (Ara-wound Skin Appearance Dry/Scaly ) -Color (Ara-wound Skin Appearance) Assessed -Temperature (Ara-wound Skin No Abnormality Appearance) (Pt Warm) -Tenderness on Palpation (Ara-wound No Skin Appearance) -Ulcer Cleansing Rinsed/ Irrigated with Saline -Foul Odor after Cleansing No -Anesthetic Used 4% Lidocaine Solution #5 LEFT MEDIAL FOOT- (ABOVE ARCH) -Combined with other wound No -Current Size (cm) - Length 0.1 -Current Size (cm) - Width 0.1 -Current Size (cm) - Depth 0.1 -Total Square Cm 0.01 -Photo Taken No -Tunneling No -Undermining/Tunneling No -Circular Undermining No -Exudate Amt Small (1-33%) -Exudate Type Serosanguineous -Wound Margin Distinct, Outline Attached -Granulation Amt Small (1-33%) -Granulation Quality [place] -Slough/Fibrin Yes -Necrosis Amt Large (67-100%) -Necrotic Tissue Type Adherent Slough -Structure Exposed N/A -Texture (Ara-wound Skin Appearance) Assessed -Moisture (Ara-wound Skin Appearance Dry/Scaly ) -Color (Ara-wound Skin Appearance) Assessed -Temperature (Ara-wound Skin No Abnormality Appearance) (Pt Warm) -Tenderness on Palpation (Ara-wound No Skin Appearance) -Ulcer Cleansing Rinsed/ Irrigated with Saline -Foul Odor after Cleansing No -Anesthetic Used 4% Lidocaine Solution [Edema Assessment] -Lower Limb Edema Present Yes -Left Calf (cm) 34.9 -Left Ankle (cm) 24 WC - Nurse 2 - General Ulcer CM Notes Start: 08/29/18 09:04 Freq: Status: Active Protocol: Activity Type Activity Date Activity User E-Sign Co-Sign Detail Recorded Client Recorded Date Recorded By Document 09/12/18 09:57 DV [id number] 09/12/18 10:07 DV 09/12/18 09:57 Wound Center Nurse 2 [Procedure/Treatment] #6 LEFT ANKLE- SUPERIOR -Time 09:58 -Correct Patient Yes -Correct Side, Site, Position Yes -Correct Procedure Yes -Procedure Performed Yes -Type of Procedure Debridement -Clinical Debridement Subcutaneous -Post Debridement Size (cm) - Length 0.3 -Post Debridement Size (cm) - Width 0.2 -Post Debridement Size (cm) - Depth 0.1 -Total Square Cm 0.06 -Wound/Ulcer Outcome Not Healed -Ulcer Cleansing Rinsed/ Irrigated with Saline -Foul Odor after Cleansing No -Bioengineered Tissue No -Bleeding Controlled with Pressure -Treatment Response Procedure Tolerated Well #4 LEFT ANKLE -Time 09:58 -Correct Patient Yes -Correct Side, Site, Position Yes -Correct Procedure Yes -Procedure Performed Yes -Type of Procedure Debridement -Clinical Debridement Subcutaneous -Post Debridement Size (cm) - Length 6.0 -Post Debridement Size (cm) - Width 8.1 -Post Debridement Size (cm) - Depth 0.3 -Total Square Cm 48.60 -Wound/Ulcer Outcome Not Healed -Ulcer Cleansing Rinsed/ Irrigated with Saline -Foul Odor after Cleansing No -Bioengineered Tissue No -Bleeding Controlled with Pressure -Treatment Response Procedure Tolerated Well #5 LEFT MEDIAL FOOT- (ABOVE ARCH) -Time 09:59 -Correct Patient Yes -Correct Side, Site, Position Yes -Correct Procedure Yes -Procedure Performed Yes -Type of Procedure Debridement -Clinical Debridement Subcutaneous -Post Debridement Size (cm) - Length 0.5 -Post Debridement Size (cm) - Width 0.2 -Post Debridement Size (cm) - Depth 0.1 -Total Square Cm 0.10 -Wound/Ulcer Outcome Not Healed -Ulcer Cleansing Rinsed/ Irrigated with Saline -Foul Odor after Cleansing No -Bioengineered Tissue No -Bleeding Controlled with Pressure -Treatment Response Procedure Tolerated Well [See Physician Procedure note for Specifics] Pain Scale: 0-10 Numeric [Pain] -Is Patient Pain Free? Yes Musculoskeletal: No Tenderness to Palpation of Joints or Extremities, Tenderness - With manipulation of some of the ulcer sites. Neurological: Sensory exam intact to light touch and pain Psych/Mental Status: Normal Affect, Appropriate Debridement Note Post-Debridement Measurements/Treatment WC - Nurse 2 - General Ulcer CM Notes Start: 08/29/18 09:04 Freq: Status: Active Protocol: Activity Type Activity Date Activity User E-Sign Co-Sign Detail Recorded Client Recorded Date Recorded By Document 08/29/18 09:41 DV [id number] 08/29/18 09:59 DV Document 09/05/18 10:31 DV [id number] 09/05/18 10:35 DV Document 09/12/18 09:57 DV [id number] 09/12/18 10:07 DV 08/29/18 09/05/18 09/12/18 09:41 10:31 09:57 Wound Center Nurse 2 #6 LEFT ANKLE- SUPERIOR -Time 09:44 10:32 09:58 -Correct Patient Yes Yes Yes -Correct Side, Site, Position Yes Yes Yes -Correct Procedure Yes Yes Yes -Procedure Performed Yes Yes Yes -Type of Procedure Debridement Debridement Debridement -Clinical Debridement Subcutaneous Subcutaneous Subcutaneous -Post Debridement Size (cm) - Length 0.5 0.8 0.3 -Post Debridement Size (cm) - Width 0.6 0.2 0.2 -Post Debridement Size (cm) - Depth 0.1 0.1 0.1 -Total Square Cm 0.30 0.16 0.06 -Wound/Ulcer Outcome Not Healed Not Healed Not Healed -Ulcer Cleansing Rinsed/ Rinsed/ Irrigated with Irrigated with Saline Saline -Foul Odor after Cleansing No No No -Bioengineered Tissue No No No -Bleeding Controlled with Pressure Pressure Pressure -Treatment Response Procedure Procedure Procedure Tolerated Well Tolerated Well Tolerated Well #4 LEFT ANKLE -Time 09:53 10:32 09:58 -Correct Patient Yes Yes Yes -Correct Side, Site, Position Yes Yes Yes -Correct Procedure Yes Yes Yes -Procedure Performed Yes Yes Yes -Type of Procedure Debridement Debridement Debridement -Clinical Debridement Subcutaneous Subcutaneous Subcutaneous -Post Debridement Size (cm) - Length 5.6 6.0 6.0 -Post Debridement Size (cm) - Width 7.5 8.1 8.1 -Post Debridement Size (cm) - Depth 0.3 0.3 0.3 -Total Square Cm 42.00 48.60 48.60 -Wound/Ulcer Outcome Not Healed Not Healed Not Healed -Ulcer Cleansing Rinsed/ Rinsed/ Rinsed/ Irrigated with Irrigated with Irrigated with Saline Saline Saline -Foul Odor after Cleansing No No No -Bioengineered Tissue Yes No No -Type of bioengineered Tissue EPIFIX -Expiration Date 04/28/23 -Product Lot Number [id number] -Percent Used 100 -Saline Lot Number [id number] -Topical Lidocaine (%) 4 -Bleeding Controlled with Pressure Pressure Pressure -Treatment Response Procedure Procedure Procedure Tolerated Well Tolerated Well Tolerated Well #5 LEFT MEDIAL FOOT- (ABOVE ARCH) -Time 09:51 10:32 09:59 -Correct Patient Yes Yes Yes -Correct Side, Site, Position Yes Yes Yes -Correct Procedure Yes Yes Yes -Procedure Performed Yes Yes Yes -Type of Procedure Debridement Debridement Debridement -Clinical Debridement Subcutaneous Subcutaneous Subcutaneous -Post Debridement Size (cm) - Length 0.7 1.4 0.5 -Post Debridement Size (cm) - Width 0.6 0.3 0.2 -Post Debridement Size (cm) - Depth 0.1 0.1 0.1 -Total Square Cm 0.42 0.42 0.10 -Wound/Ulcer Outcome Not Healed Not Healed Not Healed -Ulcer Cleansing Rinsed/ Rinsed/ Rinsed/ Irrigated with Irrigated with Irrigated with Saline Saline Saline -Foul Odor after Cleansing No No No -Bioengineered Tissue No No No -Bleeding Controlled with Pressure Pressure Pressure -Treatment Response Procedure Procedure Procedure Tolerated Well Tolerated Well Tolerated Well Pain Scale: 0-10 Numeric Is Patient Pain Free? Yes Yes Yes Wound debrided: Left dorsomedial foot Laterality: Left Type of Debridement: Excisional debridement Anesthesia Used: 4% Lidocaine Solution Depth: in the subcutaneous layer Percentage of wound debrided: 100 Instrument Used: 7mm curette Tissue Removed: Adherent slough, fibrin, hyperkeratotic tissue Severity: Fat Layer Exposed Amount of bleeding with debridement: Mild Bleeding Controlled with: Pressure Patient tolerated procedure well - Additional Wound Wound debrided: Left medial ankle Laterality: Left Type of Debridement: Excisional debridement Anesthesia Used: 4% Lidocaine Solution Depth: in the subcutaneous layer Percentage of wound debrided: 100 Instrument Used: 7mm curette Tissue Removed: Adherent slough, fibrin, hyperkeratotic tissue Severity: Fat Layer Exposed Amount of bleeding with debridement: Mild Bleeding Controlled with: Pressure Patient tolerated procedure: Patient tolerated procedure well - Additional Wound Wound debrided: Left anterior lower leg Type of Debridement: Excisional debridement Depth: in the subcutaneous layer Percentage of wound debrided: 100 Instrument Used: 7mm curette Tissue Removed: Adherent slough, fibrin, hyperkeratotic tissue Severity: Fat Layer Exposed Amount of bleeding with debridement: Mild Bleeding Controlled with: Pressure Patient tolerated procedure: Patient tolerated procedure well Assessment/Plan Assessment: Right medial ankle ulcer resolved. Peripheral vascular occlusive disease. Nonhealing ulcers resolved. Edema Plan: Patient was carefully examined and evaluated today. Subcutaneous debridement was performed to each of the aforementioned ulcer sites as noted in the clinical panel again this week. Once complete, the ulcer sites were carefully cleansed and then all ulcer sites were dressed with Elvira to the bases followed by a dry sterile dressing and Tubigrip for compression. The patient is to continue the dressing changes in this manner on a daily basis. The importance of offloading the ulcer sites was discussed at length with this patient again today. He says he is unable to completely stop working, but he does have the option for light duty. He is to continue with this. I stressed the importance of keeping pressure off of all of the ulcer sites and how this will impact his healing potential. Patient was instructed to be off his feet as much as possible and to keep the lower extremities elevated while not at work. The importance of compression was also discussed with this patient today. Dr. Farris saw the patient last week as well and started the patient on levaquin and augmentin with instructions for the patient to call him with any issues. Patient has done well with these antibiotics and has a few days left. LEAS studies were reviewed prior to patient's visit and the results are in the patient's chart. I continue to recommend nutritional supplementation with a high-protein diet at this time in order to help optimize ulcer healing potential. Smoking cessation was stressed again today. All signs and symptoms of local and systemic infection were discussed in great detail with the patient today and he was instructed to go to the emergency room immediately should he notice any of these. All questions were answered to the patient's satisfaction. Patient will follow-up in clinic in [address] Spencer to check on progress, or sooner if needed.
--- NOTE | 2018-09-12 10:48 | PN.PCM_ITS ---
(1) Ulcer of left lower extremity with fat layer exposed Status: Acute Current Visit: No Code(s): L97.922 - Non-pressure chronic ulcer of unspecified part of left lower leg with fat layer exposed (2) PVD (peripheral vascular disease) Status: Acute Current Visit: No Code(s): I73.9 - Peripheral vascular disease, unspecified (3) Chronic venous insufficiency Status: Acute Current Visit: No Code(s): I87.2 - Venous insufficiency (chronic) (peripheral) (4) Edema, lower extremity Status: Acute Current Visit: No Code(s): R60.0 - Localized edema (5) Pain of left lower extremity Status: Acute Current Visit: No Code(s): M79.605 - Pain in left leg (6) Delayed wound healing Status: Acute Current Visit: No Code(s): T14.8XXD - Other injury of unspecified body region, subsequent encounter Type of Wound Chief Complaint: ulcers to the left lower leg/foot History of Wound: This is a 51-year-old white male presents to wound healing center with a long-standing history of chronic venous insufficiency, chronic venous hypertension, lower extremity edema, lower extremity pain, and 3 ulcer sites to left lower leg/foot. The patient has had multiple ulcerations in the lower extremities bilaterally, related to his chronic venous disease. He also has chronic venous stasis changes. The skin changes include hyperpigmentation. 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 He is currently wearing graduated compression stockings which are documented to be 20-30 mmHg compression, however, he says the ones he has on are about a year old. He has new ones at home that he has not been wearing. 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 Patient says that he noticed a small area start opening on the top of his left foot about 8-10 months ago. He says he tried to doctor this on his own with old wound care supplies. He says this continued to get slightly worse. Then, about 4 months ago, he noticed the area around the medial malleolus starting to break down, and that has slowly been getting worse too. He also has a small anterior lower leg ulcer. Nothing he has done on his own to treat these areas has helped. He decided he should finally come back to the wound healing center to see if he can get the areas to heal again. Progress of Wound: Ulcer to left medial ankle stable since last week. The other two ulcer sites have improved again. Patient has been taking antibiotics and having daily elvira dressing changes. Patient denies any feelings of nausea, vomiting, fever, chills at this time. - Physical Exam Vital Signs Temp Pulse Resp BP 98 F 97 18 158/98 H 09/12/18 09:28 09/12/18 09:09/12/18 09:09/12/18 09:28 General: Alert, Oriented x3, Cooperative, No apparent distress Extremities: Capillary Refill Less than 3 Seconds, No Calf Tenderness - Negative Lakisha and Hough sign, Diminished Peripheral Pulses - DP pulses palpable and PT pulses nonpalpable, Edema - Slight lower extremity edema Skin: Ulcer/ Wound - Ulcer to dorsomedial foot, left medial ankle, and left anterior lower leg with fat layer exposed. The bases of each ulcer site show adherent slough, fibrin, granular tissue, biofilm, as well as some slight surrounding hyperkeratotic tissue. There continues to be no probing to bone, no tracking, no undermining, no surrounding or extending cellulitis, no purulence, no malodor, no increase in warmth. Improved serous drainage. Wound Measurements and Assessment WC - Nurse 1 - General Ulcer Measurement Start: 08/29/18 09:04 Freq: Status: Active Protocol: Activity Type Activity Date Activity User E-Sign Co-Sign Detail Recorded Client Recorded Date Recorded By Document 09/12/18 09:28 [facility] [id number] 09/12/18 09:34 [facility] 09/12/18 09:28 Wound Center Nurse 1 [Ulcer Assessment] #6 LEFT ANKLE- SUPERIOR -Combined with other wound No -Current Size (cm) - Length 0.1 -Current Size (cm) - Width 0.1 -Current Size (cm) - Depth 0.1 -Total Square Cm 0.01 -Photo Taken No -Tunneling No -Undermining/Tunneling No -Circular Undermining No -Exudate Amt Small (1-33%) -Exudate Type Serosanguineous -Wound Margin Distinct, Outline Attached -Granulation Amt Small (1-33%) -Granulation Quality [place] -Slough/Fibrin Yes -Necrosis Amt Large (67-100%) -Necrotic Tissue Type Adherent Slough -Structure Exposed N/A -Texture (Ara-wound Skin Appearance) Assessed -Moisture (Ara-wound Skin Appearance Dry/Scaly ) -Color (Ara-wound Skin Appearance) Assessed -Temperature (Ara-wound Skin No Abnormality Appearance) (Pt Warm) -Tenderness on Palpation (Ara-wound No Skin Appearance) -Ulcer Cleansing Rinsed/ Irrigated with Saline -Foul Odor after Cleansing No -Anesthetic Used 4% Lidocaine Solution #4 LEFT ANKLE -Combined with other wound No -Current Size (cm) - Length 7.2 -Current Size (cm) - Width 7.4 -Current Size (cm) - Depth 0.4 -Total Square Cm 53.28 -Photo Taken No -Tunneling No -Undermining/Tunneling No -Circular Undermining No -Exudate Amt Large (67-100%) -Exudate Type Serosanguineous -Wound Margin Distinct, Outline Attached -Granulation Amt Large (67-100%) -Granulation Quality [place] -Slough/Fibrin Yes -Necrosis Amt Medium (34-66%) -Necrotic Tissue Type Adherent Slough -Structure Exposed N/A -Texture (Ara-wound Skin Appearance) Assessed Friable -Moisture (Ara-wound Skin Appearance Dry/Scaly ) -Color (Ara-wound Skin Appearance) Assessed -Temperature (Ara-wound Skin No Abnormality Appearance) (Pt Warm) -Tenderness on Palpation (Ara-wound No Skin Appearance) -Ulcer Cleansing Rinsed/ Irrigated with Saline -Foul Odor after Cleansing No -Anesthetic Used 4% Lidocaine Solution #5 LEFT MEDIAL FOOT- (ABOVE ARCH) -Combined with other wound No -Current Size (cm) - Length 0.1 -Current Size (cm) - Width 0.1 -Current Size (cm) - Depth 0.1 -Total Square Cm 0.01 -Photo Taken No -Tunneling No -Undermining/Tunneling No -Circular Undermining No -Exudate Amt Small (1-33%) -Exudate Type Serosanguineous -Wound Margin Distinct, Outline Attached -Granulation Amt Small (1-33%) -Granulation Quality [place] -Slough/Fibrin Yes -Necrosis Amt Large (67-100%) -Necrotic Tissue Type Adherent Slough -Structure Exposed N/A -Texture (Ara-wound Skin Appearance) Assessed -Moisture (Ara-wound Skin Appearance Dry/Scaly ) -Color (Ara-wound Skin Appearance) Assessed -Temperature (Ara-wound Skin No Abnormality Appearance) (Pt Warm) -Tenderness on Palpation (Ara-wound No Skin Appearance) -Ulcer Cleansing Rinsed/ Irrigated with Saline -Foul Odor after Cleansing No -Anesthetic Used 4% Lidocaine Solution [Edema Assessment] -Lower Limb Edema Present Yes -Left Calf (cm) 34.9 -Left Ankle (cm) 24 WC - Nurse 2 - General Ulcer CM Notes Start: 08/29/18 09:04 Freq: Status: Active Protocol: Activity Type Activity Date Activity User E-Sign Co-Sign Detail Recorded Client Recorded Date Recorded By Document 09/12/18 09:57 DV [id number] 09/12/18 10:07 DV 09/12/18 09:57 Wound Center Nurse 2 [Procedure/Treatment] #6 LEFT ANKLE- SUPERIOR -Time 09:58 -Correct Patient Yes -Correct Side, Site, Position Yes -Correct Procedure Yes -Procedure Performed Yes -Type of Procedure Debridement -Clinical Debridement Subcutaneous -Post Debridement Size (cm) - Length 0.3 -Post Debridement Size (cm) - Width 0.2 -Post Debridement Size (cm) - Depth 0.1 -Total Square Cm 0.06 -Wound/Ulcer Outcome Not Healed -Ulcer Cleansing Rinsed/ Irrigated with Saline -Foul Odor after Cleansing No -Bioengineered Tissue No -Bleeding Controlled with Pressure -Treatment Response Procedure Tolerated Well #4 LEFT ANKLE -Time 09:58 -Correct Patient Yes -Correct Side, Site, Position Yes -Correct Procedure Yes -Procedure Performed Yes -Type of Procedure Debridement -Clinical Debridement Subcutaneous -Post Debridement Size (cm) - Length 6.0 -Post Debridement Size (cm) - Width 8.1 -Post Debridement Size (cm) - Depth 0.3 -Total Square Cm 48.60 -Wound/Ulcer Outcome Not Healed -Ulcer Cleansing Rinsed/ Irrigated with Saline -Foul Odor after Cleansing No -Bioengineered Tissue No -Bleeding Controlled with Pressure -Treatment Response Procedure Tolerated Well #5 LEFT MEDIAL FOOT- (ABOVE ARCH) -Time 09:59 -Correct Patient Yes -Correct Side, Site, Position Yes -Correct Procedure Yes -Procedure Performed Yes -Type of Procedure Debridement -Clinical Debridement Subcutaneous -Post Debridement Size (cm) - Length 0.5 -Post Debridement Size (cm) - Width 0.2 -Post Debridement Size (cm) - Depth 0.1 -Total Square Cm 0.10 -Wound/Ulcer Outcome Not Healed -Ulcer Cleansing Rinsed/ Irrigated with Saline -Foul Odor after Cleansing No -Bioengineered Tissue No -Bleeding Controlled with Pressure -Treatment Response Procedure Tolerated Well [See Physician Procedure note for Specifics] Pain Scale: 0-10 Numeric [Pain] -Is Patient Pain Free? Yes Musculoskeletal: No Tenderness to Palpation of Joints or Extremities, Tenderness - With manipulation of some of the ulcer sites. Neurological: Sensory exam intact to light touch and pain Psych/Mental Status: Normal Affect, Appropriate Debridement Note Post-Debridement Measurements/Treatment WC - Nurse 2 - General Ulcer CM Notes Start: 08/29/18 09:04 Freq: Status: Active Protocol: Activity Type Activity Date Activity User E-Sign Co-Sign Detail Recorded Client Recorded Date Recorded By Document 08/29/18 09:41 DV [id number] 08/29/18 09:59 DV Document 09/05/18 10:31 DV [id number] 09/05/18 10:35 DV Document 09/12/18 09:57 DV [id number] 09/12/18 10:07 DV 08/29/18 09/05/18 09/12/18 09:41 10:31 09:57 Wound Center Nurse 2 #6 LEFT ANKLE- SUPERIOR -Time 09:44 10:32 09:58 -Correct Patient Yes Yes Yes -Correct Side, Site, Position Yes Yes Yes -Correct Procedure Yes Yes Yes -Procedure Performed Yes Yes Yes -Type of Procedure Debridement Debridement Debridement -Clinical Debridement Subcutaneous Subcutaneous Subcutaneous -Post Debridement Size (cm) - Length 0.5 0.8 0.3 -Post Debridement Size (cm) - Width 0.6 0.2 0.2 -Post Debridement Size (cm) - Depth 0.1 0.1 0.1 -Total Square Cm 0.30 0.16 0.06 -Wound/Ulcer Outcome Not Healed Not Healed Not Healed -Ulcer Cleansing Rinsed/ Rinsed/ Irrigated with Irrigated with Saline Saline -Foul Odor after Cleansing No No No -Bioengineered Tissue No No No -Bleeding Controlled with Pressure Pressure Pressure -Treatment Response Procedure Procedure Procedure Tolerated Well Tolerated Well Tolerated Well #4 LEFT ANKLE -Time 09:53 10:32 09:58 -Correct Patient Yes Yes Yes -Correct Side, Site, Position Yes Yes Yes -Correct Procedure Yes Yes Yes -Procedure Performed Yes Yes Yes -Type of Procedure Debridement Debridement Debridement -Clinical Debridement Subcutaneous Subcutaneous Subcutaneous -Post Debridement Size (cm) - Length 5.6 6.0 6.0 -Post Debridement Size (cm) - Width 7.5 8.1 8.1 -Post Debridement Size (cm) - Depth 0.3 0.3 0.3 -Total Square Cm 42.00 48.60 48.60 -Wound/Ulcer Outcome Not Healed Not Healed Not Healed -Ulcer Cleansing Rinsed/ Rinsed/ Rinsed/ Irrigated with Irrigated with Irrigated with Saline Saline Saline -Foul Odor after Cleansing No No No -Bioengineered Tissue Yes No No -Type of bioengineered Tissue EPIFIX -Expiration Date 04/28/23 -Product Lot Number [id number] -Percent Used 100 -Saline Lot Number [id number] -Topical Lidocaine (%) 4 -Bleeding Controlled with Pressure Pressure Pressure -Treatment Response Procedure Procedure Procedure Tolerated Well Tolerated Well Tolerated Well #5 LEFT MEDIAL FOOT- (ABOVE ARCH) -Time 09:51 10:32 09:59 -Correct Patient Yes Yes Yes -Correct Side, Site, Position Yes Yes Yes -Correct Procedure Yes Yes Yes -Procedure Performed Yes Yes Yes -Type of Procedure Debridement Debridement Debridement -Clinical Debridement Subcutaneous Subcutaneous Subcutaneous -Post Debridement Size (cm) - Length 0.7 1.4 0.5 -Post Debridement Size (cm) - Width 0.6 0.3 0.2 -Post Debridement Size (cm) - Depth 0.1 0.1 0.1 -Total Square Cm 0.42 0.42 0.10 -Wound/Ulcer Outcome Not Healed Not Healed Not Healed -Ulcer Cleansing Rinsed/ Rinsed/ Rinsed/ Irrigated with Irrigated with Irrigated with Saline Saline Saline -Foul Odor after Cleansing No No No -Bioengineered Tissue No No No -Bleeding Controlled with Pressure Pressure Pressure -Treatment Response Procedure Procedure Procedure Tolerated Well Tolerated Well Tolerated Well Pain Scale: 0-10 Numeric Is Patient Pain Free? Yes Yes Yes Wound debrided: Left dorsomedial foot Laterality: Left Type of Debridement: Excisional debridement Anesthesia Used: 4% Lidocaine Solution Depth: in the subcutaneous layer Percentage of wound debrided: 100 Instrument Used: 7mm curette Tissue Removed: Adherent slough, fibrin, hyperkeratotic tissue Severity: Fat Layer Exposed Amount of bleeding with debridement: Mild Bleeding Controlled with: Pressure Patient tolerated procedure well - Additional Wound Wound debrided: Left medial ankle Laterality: Left Type of Debridement: Excisional debridement Anesthesia Used: 4% Lidocaine Solution Depth: in the subcutaneous layer Percentage of wound debrided: 100 Instrument Used: 7mm curette Tissue Removed: Adherent slough, fibrin, hyperkeratotic tissue Severity: Fat Layer Exposed Amount of bleeding with debridement: Mild Bleeding Controlled with: Pressure Patient tolerated procedure: Patient tolerated procedure well - Additional Wound Wound debrided: Left anterior lower leg Type of Debridement: Excisional debridement Depth: in the subcutaneous layer Percentage of wound debrided: 100 Instrument Used: 7mm curette Tissue Removed: Adherent slough, fibrin, hyperkeratotic tissue Severity: Fat Layer Exposed Amount of bleeding with debridement: Mild Bleeding Controlled with: Pressure Patient tolerated procedure: Patient tolerated procedure well Assessment/Plan Assessment: Right medial ankle ulcer resolved. Peripheral vascular occlusive disease. Nonhealing ulcers resolved. Edema Plan: Patient was carefully examined and evaluated today. Subcutaneous debridement was performed to each of the aforementioned ulcer sites as noted in the clinical panel again this week. Once complete, the ulcer sites were carefully cleansed and then all ulcer sites were dressed with Elvira to the bases followed by a dry sterile dressing and Tubigrip for compression. The patient is to continue the dressing changes in this manner on a daily basis. The importance of offloading the ulcer sites was discussed at length with this patient again today. He says he is unable to completely stop working, but he does have the option for light duty. He is to continue with this. I stressed the importance of keeping pressure off of all of the ulcer sites and how this will impact his healing potential. Patient was instructed to be off his feet as much as possible and to keep the lower extremities elevated while not at work. The importance of compression was also discussed with this patient today. Dr. Farris saw the patient last week as well and started the patient on levaquin and augmentin with instructions for the patient to call him with any issues. Patient has done well with these antibiotics and has a few days left. LEAS studies were reviewed prior to patient's visit and the results are in the patient's chart. I continue to recommend nutritional supplementation with a high-protein diet at this time in order to help optimize ulcer healing potential. Smoking cessation was stressed again today. All signs and symptoms of local and systemic infection were discussed in great detail with the patient today and he was instructed to go to the emergency room immediately should he notice any of these. All questions were answered to the patient's satisfaction. Patient will follow-up in clinic in [address] Spencer to check on progress, or sooner if needed.
[2018-09-26 08:47] VITALS: BP 147/92; PULSE 90; RESP 16; TEMP 36.8
--- NOTE | 2018-09-26 13:23 | PCM.WC.PN ---
(1) Ulcer of left lower extremity with fat layer exposed Status: Acute Current Visit: No Code(s): L97.922 - Non-pressure chronic ulcer of unspecified part of left lower leg with fat layer exposed (2) PVD (peripheral vascular disease) Status: Acute Current Visit: No Code(s): I73.9 - Peripheral vascular disease, unspecified (3) Chronic venous insufficiency Status: Acute Current Visit: No Code(s): I87.2 - Venous insufficiency (chronic) (peripheral) (4) Edema, lower extremity Status: Acute Current Visit: No Code(s): R60.0 - Localized edema (5) Pain of left lower extremity Status: Acute Current Visit: No Code(s): M79.605 - Pain in left leg (6) Delayed wound healing Status: Acute Current Visit: No Code(s): T14.8XXD - Other injury of unspecified body region, subsequent encounter Type of Wound Chief Complaint: ulcers to the left lower leg/foot History of Wound: This is a 51-year-old white male presents to wound healing center with a long-standing history of chronic venous insufficiency, chronic venous hypertension, lower extremity edema, lower extremity pain, and 3 ulcer sites to left lower leg/foot. The patient has had multiple ulcerations in the lower extremities bilaterally, related to his chronic venous disease. He also has chronic venous stasis changes. The skin changes include hyperpigmentation. The patient has previously undergone endovenous laser ablation of the left and right great saphenous vein, the small saphenous vein, the left accessory saphenous vein, and an incompetent left calf metal door assembler vein located 15 cm proximal to the left medial malleolus. He is currently wearing graduated compression stockings which are documented to be 20-30 mmHg compression, however, he says the ones he has on are about a year old. He has new ones at home that he has not been wearing. 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 Patient says that he noticed a small area start opening on the top of his left foot about 8-10 months ago. He says he tried to doctor this on his own with old wound care supplies. He says this continued to get slightly worse. Then, about 4 months ago, he noticed the area around the medial malleolus starting to break down, and that has slowly been getting worse too. He also has a small anterior lower leg ulcer. Nothing he has done on his own to treat these areas has helped. He decided he should finally come back to the wound healing center to see if he can get the areas to heal again. Progress of Wound: Ulcer to left medial ankle shows slight improvement to ulcer base. The other two ulcer sites appear healed today. Patient has been taking antibiotics and having daily elvira dressing changes. Patient denies any feelings of nausea, vomiting, fever, chills at this time. - Physical Exam Vital Signs Temp Pulse Resp BP 98.2 F 90 16 147/92 H 09/26/18 08:47 09/26/18 08:47 09/26/18 08:47 09/26/18 08:47 General: Alert, Oriented x3, Cooperative, No apparent distress Extremities: Capillary Refill Less than 3 Seconds, No Calf Tenderness - Negative Lakisha and Hough sign, Diminished Peripheral Pulses - DP pulses palpable and PT pulses nonpalpable, Edema - Slight lower extremity edema Skin: Ulcer/ Wound - Ulcer to left medial ankle with fat layer exposed. The bases of the ulcer site show adherent slough, fibrin, granular tissue, biofilm, as well as some slight surrounding hyperkeratotic tissue. There continues to be no probing to bone, no tracking, no undermining, no surrounding or extending cellulitis, no purulence, no malodor, no increase in warmth. Improved serous drainage. The remaining previous 2 ulcer sites are healed today. Wound Measurements and Assessment WC - Nurse 1 - General Ulcer Measurement Start: 08/29/18 09:04 Freq: Status: Active Protocol: Activity Type Activity Date Activity User E-Sign Co-Sign Detail Recorded Client Recorded Date Recorded By Document 09/26/18 08:47 [facility] [id number] 09/26/18 08:59 BM 09/26/18 08:47 Wound Center Nurse 1 [Ulcer Assessment] #6 LEFT ANKLE- SUPERIOR -Combined with other wound No -Current Size (cm) - Length 0.1 -Current Size (cm) - Width 0.1 -Current Size (cm) - Depth 0.1 -Total Square Cm 0.01 -Date of Last Picture (Recall this 09/26/18 field) -Photo Taken Yes -Epithelialization Large 67-100% -Tunneling No -Undermining/Tunneling No -Circular Undermining No -Exudate Amt None Present (0 %) -Texture (Ara-wound Skin Appearance) Assessed Scarring -Moisture (Ara-wound Skin Appearance Assessed ) Dry/Scaly -Color (Ara-wound Skin Appearance) Assessed Hemosiderin Staining -Temperature (Ara-wound Skin No Abnormality Appearance) (Pt Warm) -Tenderness on Palpation (Ara-wound No Skin Appearance) -Ulcer Cleansing Rinsed/ Irrigated with Saline -Foul Odor after Cleansing No -Anesthetic Used 5% Lidocaine Gel #4 LEFT ANKLE -Combined with other wound No -Current Size (cm) - Length 7.4 -Current Size (cm) - Width 6.7 -Current Size (cm) - Depth 0.3 -Total Square Cm 49.58 -Date of Last Picture (Recall this 09/26/18 field) -Photo Taken Yes -Epithelialization None Present -Tunneling No -Undermining/Tunneling No -Circular Undermining No -Exudate Amt Medium (34-66%) -Exudate Type Serosanguineous -Wound Margin Thickened & Rolled Under -Granulation Amt Large (67-100%) -Granulation Quality Red -Slough/Fibrin Yes -Necrosis Amt Small (1-33%) -Necrotic Tissue Type Adherent Slough -Structure Exposed N/A -Texture (Ara-wound Skin Appearance) Assessed Localized Edema Scarring -Moisture (Ara-wound Skin Appearance Assessed ) Dry/Scaly -Color (Ara-wound Skin Appearance) Assessed Erythema Hemosiderin Staining -Temperature (Ara-wound Skin No Abnormality Appearance) (Pt Warm) -Tenderness on Palpation (Ara-wound No Skin Appearance) -Ulcer Cleansing Rinsed/ Irrigated with Saline -Foul Odor after Cleansing No -Anesthetic Used 5% Lidocaine Gel #5 LEFT MEDIAL FOOT- (ABOVE ARCH) -Combined with other wound No -Current Size (cm) - Length 0.1 -Current Size (cm) - Width 0.1 -Current Size (cm) - Depth 0.1 -Total Square Cm 0.01 -Date of Last Picture (Recall this 09/26/18 field) -Photo Taken Yes -Epithelialization Large 67-100% -Tunneling No -Undermining/Tunneling No -Circular Undermining No -Exudate Amt None Present (0 %) -Texture (Ara-wound Skin Appearance) Scarring -Moisture (Ara-wound Skin Appearance Dry/Scaly ) -Color (Ara-wound Skin Appearance) Hemosiderin Staining -Temperature (Ara-wound Skin No Abnormality Appearance) (Pt Warm) -Tenderness on Palpation (Ara-wound No Skin Appearance) -Ulcer Cleansing Rinsed/ Irrigated with Saline -Foul Odor after Cleansing No -Anesthetic Used 5% Lidocaine Gel [Edema Assessment] -Lower Limb Edema Present Yes -Left Calf (cm) 34.5 -Left Ankle (cm) 23.5 WC - Nurse 2 - General Ulcer CM Notes Start: 08/29/18 09:04 Freq: Status: Active Protocol: Activity Type Activity Date Activity User E-Sign Co-Sign Detail Recorded Client Recorded Date Recorded By Document 09/26/18 09:15 DV [id number] 09/26/18 09:24 DV 09/26/18 09:15 Wound Center Nurse 2 [Procedure/Treatment] #6 LEFT ANKLE- SUPERIOR -Time 09:19 -Correct Patient Yes -Correct Side, Site, Position Yes -Procedure Performed No -Post Debridement Size (cm) - Length 0 -Post Debridement Size (cm) - Width 0 -Post Debridement Size (cm) - Depth 0 -Total Square Cm 0 -Wound/Ulcer Outcome Healed- Epithelialized #4 LEFT ANKLE -Time 09:21 -Correct Patient Yes -Correct Side, Site, Position Yes -Correct Procedure Yes -Procedure Performed Yes -Type of Procedure Debridement -Clinical Debridement Subcutaneous -Post Debridement Size (cm) - Length 6.4 -Post Debridement Size (cm) - Width 7.5 -Post Debridement Size (cm) - Depth 0.3 -Total Square Cm 48.00 -Wound/Ulcer Outcome Not Healed -Ulcer Cleansing Rinsed/ Irrigated with Saline -Foul Odor after Cleansing No -Bioengineered Tissue No -Bleeding Controlled with Pressure -Offloading No -Treatment Response Procedure Tolerated Well #5 LEFT MEDIAL FOOT- (ABOVE ARCH) -Time 09:20 -Correct Patient Yes -Correct Side, Site, Position Yes -Procedure Performed No -Post Debridement Size (cm) - Length 0 -Post Debridement Size (cm) - Width 0 -Post Debridement Size (cm) - Depth 0 -Total Square Cm 0 -Wound/Ulcer Outcome Healed- Epithelialized [See Physician Procedure note for Specifics] Pain Scale: 0-10 Numeric [Pain] -Is Patient Pain Free? Yes Musculoskeletal: No Tenderness to Palpation of Joints or Extremities, Tenderness - With manipulation of ulcer site and some areas Neurological: Sensory exam intact to light touch and pain Psych/Mental Status: Normal Affect, Appropriate Debridement Note Post-Debridement Measurements/Treatment WC - Nurse 2 - General Ulcer CM Notes Start: 08/29/18 09:04 Freq: Status: Active Protocol: Activity Type Activity Date Activity User E-Sign Co-Sign Detail Recorded Client Recorded Date Recorded By Document 08/29/18 09:41 DV [id number] 08/29/18 09:59 DV Document 09/05/18 10:31 DV [id number] 09/05/18 10:35 DV Document 09/12/18 09:57 DV [id number] 09/12/18 10:07 DV Document 09/26/18 09:15 DV [id number] 09/26/18 09:24 DV 08/29/18 09/05/18 09/12/18 09:41 10:31 09:57 Wound Center Nurse 2 #6 LEFT ANKLE- SUPERIOR -Time 09:44 10:32 09:58 -Correct Patient Yes Yes Yes -Correct Side, Site, Position Yes Yes Yes -Correct Procedure Yes Yes Yes -Procedure Performed Yes Yes Yes -Type of Procedure Debridement Debridement Debridement -Clinical Debridement Subcutaneous Subcutaneous Subcutaneous -Post Debridement Size (cm) - Length 0.5 0.8 0.3 -Post Debridement Size (cm) - Width 0.6 0.2 0.2 -Post Debridement Size (cm) - Depth 0.1 0.1 0.1 -Total Square Cm 0.30 0.16 0.06 -Wound/Ulcer Outcome Not Healed Not Healed Not Healed -Ulcer Cleansing Rinsed/ Rinsed/ Irrigated with Irrigated with Saline Saline -Foul Odor after Cleansing No No No -Bioengineered Tissue No No No -Bleeding Controlled with Pressure Pressure Pressure -Treatment Response Procedure Procedure Procedure Tolerated Well Tolerated Well Tolerated Well #4 LEFT ANKLE -Time 09:53 10:32 09:58 -Correct Patient Yes Yes Yes -Correct Side, Site, Position Yes Yes Yes -Correct Procedure Yes Yes Yes -Procedure Performed Yes Yes Yes -Type of Procedure Debridement Debridement Debridement -Clinical Debridement Subcutaneous Subcutaneous Subcutaneous -Post Debridement Size (cm) - Length 5.6 6.0 6.0 -Post Debridement Size (cm) - Width 7.5 8.1 8.1 -Post Debridement Size (cm) - Depth 0.3 0.3 0.3 -Total Square Cm 42.00 48.60 48.60 -Wound/Ulcer Outcome Not Healed Not Healed Not Healed -Ulcer Cleansing Rinsed/ Rinsed/ Rinsed/ Irrigated with Irrigated with Irrigated with Saline Saline Saline -Foul Odor after Cleansing No No No -Bioengineered Tissue Yes No No -Type of bioengineered Tissue EPIFIX -Expiration Date 04/28/23 -Product Lot Number [id number] -Percent Used 100 -Saline Lot Number [id number] -Topical Lidocaine (%) 4 -Bleeding Controlled with Pressure Pressure Pressure -Offloading -Treatment Response Procedure Procedure Procedure Tolerated Well Tolerated Well Tolerated Well #5 LEFT MEDIAL FOOT- (ABOVE ARCH) -Time 09:51 10:32 09:59 -Correct Patient Yes Yes Yes -Correct Side, Site, Position Yes Yes Yes -Correct Procedure Yes Yes Yes -Procedure Performed Yes Yes Yes -Type of Procedure Debridement Debridement Debridement -Clinical Debridement Subcutaneous Subcutaneous Subcutaneous -Post Debridement Size (cm) - Length 0.7 1.4 0.5 -Post Debridement Size (cm) - Width 0.6 0.3 0.2 -Post Debridement Size (cm) - Depth 0.1 0.1 0.1 -Total Square Cm 0.42 0.42 0.10 -Wound/Ulcer Outcome Not Healed Not Healed Not Healed -Ulcer Cleansing Rinsed/ Rinsed/ Rinsed/ Irrigated with Irrigated with Irrigated with Saline Saline Saline -Foul Odor after Cleansing No No No -Bioengineered Tissue No No No -Bleeding Controlled with Pressure Pressure Pressure -Treatment Response Procedure Procedure Procedure Tolerated Well Tolerated Well Tolerated Well Pain Scale: 0-10 Numeric Is Patient Pain Free? Yes Yes Yes 09/26/18 09:15 Wound Center Nurse 2 #6 LEFT ANKLE- SUPERIOR -Time 09:19 -Correct Patient Yes -Correct Side, Site, Position Yes -Correct Procedure -Procedure Performed No -Type of Procedure -Clinical Debridement -Post Debridement Size (cm) - Length 0 -Post Debridement Size (cm) - Width 0 -Post Debridement Size (cm) - Depth 0 -Total Square Cm 0 -Wound/Ulcer Outcome Healed- Epithelialized -Ulcer Cleansing -Foul Odor after Cleansing -Bioengineered Tissue -Bleeding Controlled with -Treatment Response #4 LEFT ANKLE -Time 09:21 -Correct Patient Yes -Correct Side, Site, Position Yes -Correct Procedure Yes -Procedure Performed Yes -Type of Procedure Debridement -Clinical Debridement Subcutaneous -Post Debridement Size (cm) - Length 6.4 -Post Debridement Size (cm) - Width 7.5 -Post Debridement Size (cm) - Depth 0.3 -Total Square Cm 48.00 -Wound/Ulcer Outcome Not Healed -Ulcer Cleansing Rinsed/ Irrigated with Saline -Foul Odor after Cleansing No -Bioengineered Tissue No -Type of bioengineered Tissue -Expiration Date -Product Lot Number -Percent Used -Saline Lot Number -Topical Lidocaine (%) -Bleeding Controlled with Pressure -Offloading No -Treatment Response Procedure Tolerated Well #5 LEFT MEDIAL FOOT- (ABOVE ARCH) -Time 09:20 -Correct Patient Yes -Correct Side, Site, Position Yes -Correct Procedure -Procedure Performed No -Type of Procedure -Clinical Debridement -Post Debridement Size (cm) - Length 0 -Post Debridement Size (cm) - Width 0 -Post Debridement Size (cm) - Depth 0 -Total Square Cm 0 -Wound/Ulcer Outcome Healed- Epithelialized -Ulcer Cleansing -Foul Odor after Cleansing -Bioengineered Tissue -Bleeding Controlled with -Treatment Response Pain Scale: 0-10 Numeric Is Patient Pain Free? Yes Wound debrided: Left medial ankle Laterality: Left Type of Debridement: Excisional debridement Anesthesia Used: 4% Lidocaine Solution Depth: in the subcutaneous layer Percentage of wound debrided: 100 Instrument Used: 7mm curette Tissue Removed: Adherent slough, fibrin, hyperkeratotic tissue Severity: Fat Layer Exposed Amount of bleeding with debridement: Mild Bleeding Controlled with: Pressure Patient tolerated procedure well Assessment/Plan Assessment: Right medial ankle ulcer resolved. Peripheral vascular occlusive disease. Nonhealing ulcers resolved. Edema Plan: Patient was carefully examined and evaluated today. He missed his scheduled appointment with Dr. Spencer last week. Subcutaneous debridement was performed to the aforementioned ulcer site as noted in the clinical panel again this week. Once complete, the ulcer site was carefully cleansed and then dressed with Elvira to the base followed by a dry sterile dressing and Tubigrip for compression. The patient is to continue the dressing changes in this manner on a daily basis. The importance of offloading the ulcer sites was discussed at length with this patient again today. He says he is unable to completely stop working, but he does have the option for light duty. He is to continue with this. I stressed the importance of keeping pressure off of all of the ulcer sites and how this will impact his healing potential. Patient was instructed to be off his feet as much as possible and to keep the lower extremities elevated while not at work. The importance of compression was also discussed with this patient today. Patient finished prescription for levaquin and augmentin prescribed by Dr. Farris. LEAS studies were reviewed prior to patient's visit and the results are in the patient's chart. I continue to recommend nutritional supplementation with a high-protein diet at this time in order to help optimize ulcer healing potential. Smoking cessation was stressed again today. We will obtain an MRI of the foot/ankle area to further evaluate. Will monitor for these results. All signs and symptoms of local and systemic infection were discussed in great detail with the patient today and he was instructed to go to the emergency room immediately should he notice any of these. All questions were answered to the patient's satisfaction. Patient will follow-up in clinic in 1 week to check on progress, or sooner if needed.
--- NOTE | 2018-09-26 13:30 | PN.PCM_ITS ---
(1) Ulcer of left lower extremity with fat layer exposed Status: Acute Current Visit: No Code(s): L97.922 - Non-pressure chronic ulcer of unspecified part of left lower leg with fat layer exposed (2) PVD (peripheral vascular disease) Status: Acute Current Visit: No Code(s): I73.9 - Peripheral vascular disease, unspecified (3) Chronic venous insufficiency Status: Acute Current Visit: No Code(s): I87.2 - Venous insufficiency (chronic) (peripheral) (4) Edema, lower extremity Status: Acute Current Visit: No Code(s): R60.0 - Localized edema (5) Pain of left lower extremity Status: Acute Current Visit: No Code(s): M79.605 - Pain in left leg (6) Delayed wound healing Status: Acute Current Visit: No Code(s): T14.8XXD - Other injury of unspecified body region, subsequent encounter Type of Wound Chief Complaint: ulcers to the left lower leg/foot History of Wound: This is a 51-year-old white male presents to wound healing center with a long-standing history of chronic venous insufficiency, chronic venous hypertension, lower extremity edema, lower extremity pain, and 3 ulcer sites to left lower leg/foot. The patient has had multiple ulcerations in the lower extremities bilaterally, related to his chronic venous disease. He also has chronic venous stasis changes. The skin changes include hyperpigmentation. The patient has previously undergone endovenous laser ablation of the left and right great saphenous vein, the small saphenous vein, the left accessory saphenous vein, and an incompetent left calf conformal pad former vein located 15 cm p roximal to the left medial malleolus. He is currently wearing graduated compression stockings which are documented to be 20-30 mmHg compression, however, he says the ones he has on are about a year old. He has new ones at home that he has not been wearing. 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 Patient says that he noticed a small area start opening on the top of his left foot about 8-10 months ago. He says he tried to doctor this on his own with old wound care supplies. He says this continued to get slightly worse. Then, about 4 months ago, he noticed the area around the medial malleolus starting to break down, and that has slowly been getting worse too. He also has a small anterior lower leg ulcer. Nothing he has done on his own to treat these areas has helped. He decided he should finally come back to the wound healing center to see if he can get the areas to heal again. Progress of Wound: Ulcer to left medial ankle shows slight improvement to ulcer base. The other two ulcer sites appear healed today. Patient has been taking antibiotics and having daily elvira dressing changes. Patient denies any feelings of nausea, vomiting, fever, chills at this time. - Physical Exam Vital Signs Temp Pulse Resp BP 98.2 F 90 16 147/92 H 09/26/18 08:47 09/26/18 08:47 09/26/18 08:47 09/26/18 08:47 General: Alert, Oriented x3, Cooperative, No apparent distress Extremities: Capillary Refill Less than 3 Seconds, No Calf Tenderness - Negative Lakisha and Hough sign, Diminished Peripheral Pulses - DP pulses palpable and PT pulses nonpalpable, Edema - Slight lower extremity edema Skin: Ulcer/ Wound - Ulcer to left medial ankle with fat layer exposed. The bases of the ulcer site show adherent slough, fibrin, granular tissue, biofilm, as well as some slight surrounding hyperkeratotic tissue. There continues to be no probing to bone, no tracking, no undermining, no surrounding or extending cellulitis, no purulence, no malodor, no increase in warmth. Improved serous drainage. The remaining previous 2 ulcer sites are healed today. Wound Measurements and Assessment WC - Nurse 1 - General Ulcer Measurement Start: 08/29/18 09:04 Freq: Status: Active Protocol: Activity Type Activity Date Activity User E-Sign Co-Sign Detail Recorded Client Recorded Date Recorded By Document 09/26/18 08:47 [facility] [id number] 09/26/18 08:59 BM 09/26/18 08:47 Wound Center Nurse 1 [Ulcer Assessment] #6 LEFT ANKLE- SUPERIOR -Combined with other wound No -Current Size (cm) - Length 0.1 -Current Size (cm) - Width 0.1 -Current Size (cm) - Depth 0.1 -Total Square Cm 0.01 -Date of Last Picture (Recall this 09/26/18 field) -Photo Taken Yes -Epithelialization Large 67-100% -Tunneling No -Undermining/Tunneling No -Circular Undermining No -Exudate Amt None Present (0 %) -Texture (Ara-wound Skin Appearance) Assessed Scarring -Moisture (Ara-wound Skin Appearance Assessed ) Dry/Scaly -Color (Ara-wound Skin Appearance) Assessed Hemosiderin Staining -Temperature (Ara-wound Skin No Abnormality Appearance) (Pt Warm) -Tenderness on Palpation (Ara-wound No Skin Appearance) -Ulcer Cleansing Rinsed/ Irrigated with Saline -Foul Odor after Cleansing No -Anesthetic Used 5% Lidocaine Gel #4 LEFT ANKLE -Combined with other wound No -Current Size (cm) - Length 7.4 -Current Size (cm) - Width 6.7 -Current Size (cm) - Depth 0.3 -Total Square Cm 49.58 -Date of Last Picture (Recall this 09/26/18 field) -Photo Taken Yes -Epithelialization None Present -Tunneling No -Undermining/Tunneling No -Circular Undermining No -Exudate Amt Medium (34-66%) -Exudate Type Serosanguineous -Wound Margin Thickened & Rolled Under -Granulation Amt Large (67-100%) -Granulation Quality Red -Slough/Fibrin Yes -Necrosis Amt Small (1-33%) -Necrotic Tissue Type Adherent Slough -Structure Exposed N/A -Texture (Ara-wound Skin Appearance) Assessed Localized Edema Scarring -Moisture (Ara-wound Skin Appearance Assessed ) Dry/Scaly -Color (Ara-wound Skin Appearance) Assessed Erythema Hemosiderin Staining -Temperature (Ara-wound Skin No Abnormality Appearance) (Pt Warm) -Tenderness on Palpation (Ara-wound No Skin Appearance) -Ulcer Cleansing Rinsed/ Irrigated with Saline -Foul Odor after Cleansing No -Anesthetic Used 5% Lidocaine Gel #5 LEFT MEDIAL FOOT- (ABOVE ARCH) -Combined with other wound No -Current Size (cm) - Length 0.1 -Current Size (cm) - Width 0.1 -Current Size (cm) - Depth 0.1 -Total Square Cm 0.01 -Date of Last Picture (Recall this 09/26/18 field) -Photo Taken Yes -Epithelialization Large 67-100% -Tunneling No -Undermining/Tunneling No -Circular Undermining No -Exudate Amt None Present (0 %) -Texture (Ara-wound Skin Appearance) Scarring -Moisture (Ara-wound Skin Appearance Dry/Scaly ) -Color (Ara-wound Skin Appearance) Hemosiderin Staining -Temperature (Ara-wound Skin No Abnormality Appearance) (Pt Warm) -Tenderness on Palpation (Ara-wound No Skin Appearance) -Ulcer Cleansing Rinsed/ Irrigated with Saline -Foul Odor after Cleansing No -Anesthetic Used 5% Lidocaine Gel [Edema Assessment] -Lower Limb Edema Present Yes -Left Calf (cm) 34.5 -Left Ankle (cm) 23.5 WC - Nurse 2 - General Ulcer CM Notes Start: 08/29/18 09:04 Freq: Status: Active Protocol: Activity Type Activity Date Activity User E-Sign Co-Sign Detail Recorded Client Recorded Date Recorded By Document 09/26/18 09:15 DV [id number] 09/26/18 09:24 DV 09/26/18 09:15 Wound Center Nurse 2 [Procedure/Treatment] #6 LEFT ANKLE- SUPERIOR -Time 09:19 -Correct Patient Yes -Correct Side, Site, Position Yes -Procedure Performed No -Post Debridement Size (cm) - Length 0 -Post Debridement Size (cm) - Width 0 -Post Debridement Size (cm) - Depth 0 -Total Square Cm 0 -Wound/Ulcer Outcome Healed- Epithelialized #4 LEFT ANKLE -Time 09:21 -Correct Patient Yes -Correct Side, Site, Position Yes -Correct Procedure Yes -Procedure Performed Yes -Type of Procedure Debridement -Clinical Debridement Subcutaneous -Post Debridement Size (cm) - Length 6.4 -Post Debridement Size (cm) - Width 7.5 -Post Debridement Size (cm) - Depth 0.3 -Total Square Cm 48.00 -Wound/Ulcer Outcome Not Healed -Ulcer Cleansing Rinsed/ Irrigated with Saline -Foul Odor after Cleansing No -Bioengineered Tissue No -Bleeding Controlled with Pressure -Offloading No -Treatment Response Procedure Tolerated Well #5 LEFT MEDIAL FOOT- (ABOVE ARCH) -Time 09:20 -Correct Patient Yes -Correct Side, Site, Position Yes -Procedure Performed No -Post Debridement Size (cm) - Length 0 -Post Debridement Size (cm) - Width 0 -Post Debridement Size (cm) - Depth 0 -Total Square Cm 0 -Wound/Ulcer Outcome Healed- Epithelialized [See Physician Procedure note for Specifics] Pain Scale: 0-10 Numeric [Pain] -Is Patient Pain Free? Yes Musculoskeletal: No Tenderness to Palpation of Joints or Extremities, Tenderness - With manipulation of ulcer site and some areas Neurological: Sensory exam intact to light touch and pain Psych/Mental Status: Normal Affect, Appropriate Debridement Note Post-Debridement Measurements/Treatment WC - Nurse 2 - General Ulcer CM Notes Start: 08/29/18 09:04 Freq: Status: Active Protocol: Activity Type Activity Date Activity User E-Sign Co-Sign Detail Recorded Client Recorded Date Recorded By Document 08/29/18 09:41 DV [id number] 08/29/18 09:59 DV Document 09/05/18 10:31 DV [id number] 09/05/18 10:35 DV Document 09/12/18 09:57 DV [id number] 09/12/18 10:07 DV Document 09/26/18 09:15 DV [id number] 09/26/18 09:24 DV 08/29/18 09/05/18 09/12/18 09:41 10:31 09:57 Wound Center Nurse 2 #6 LEFT ANKLE- SUPERIOR -Time 09:44 10:32 09:58 -Correct Patient Yes Yes Yes -Correct Side, Site, Position Yes Yes Yes -Correct Procedure Yes Yes Yes -Procedure Performed Yes Yes Yes -Type of Procedure Debridement Debridement Debridement -Clinical Debridement Subcutaneous Subcutaneous Subcutaneous -Post Debridement Size (cm) - Length 0.5 0.8 0.3 -Post Debridement Size (cm) - Width 0.6 0.2 0.2 -Post Debridement Size (cm) - Depth 0.1 0.1 0.1 -Total Square Cm 0.30 0.16 0.06 -Wound/Ulcer Outcome Not Healed Not Healed Not Healed -Ulcer Cleansing Rinsed/ Rinsed/ Irrigated with Irrigated with Saline Saline -Foul Odor after Cleansing No No No -Bioengineered Tissue No No No -Bleeding Controlled with Pressure Pressure Pressure -Treatment Response Procedure Procedure Procedure Tolerated Well Tolerated Well Tolerated Well #4 LEFT ANKLE -Time 09:53 10:32 09:58 -Correct Patient Yes Yes Yes -Correct Side, Site, Position Yes Yes Yes -Correct Procedure Yes Yes Yes -Procedure Performed Yes Yes Yes -Type of Procedure Debridement Debridement Debridement -Clinical Debridement Subcutaneous Subcutaneous Subcutaneous -Post Debridement Size (cm) - Length 5.6 6.0 6.0 -Post Debridement Size (cm) - Width 7.5 8.1 8.1 -Post Debridement Size (cm) - Depth 0.3 0.3 0.3 -Total Square Cm 42.00 48.60 48.60 -Wound/Ulcer Outcome Not Healed Not Healed Not Healed -Ulcer Cleansing Rinsed/ Rinsed/ Rinsed/ Irrigated with Irrigated with Irrigated with Saline Saline Saline -Foul Odor after Cleansing No No No -Bioengineered Tissue Yes No No -Type of bioengineered Tissue EPIFIX -Expiration Date 04/28/23 -Product Lot Number [id number] -Percent Used 100 -Saline Lot Number [id number] -Topical Lidocaine (%) 4 -Bleeding Controlled with Pressure Pressure Pressure -Offloading -Treatment Response Procedure Procedure Procedure Tolerated Well Tolerated Well Tolerated Well #5 LEFT MEDIAL FOOT- (ABOVE ARCH) -Time 09:51 10:32 09:59 -Correct Patient Yes Yes Yes -Correct Side, Site, Position Yes Yes Yes -Correct Procedure Yes Yes Yes -Procedure Performed Yes Yes Yes -Type of Procedure Debridement Debridement Debridement -Clinical Debridement Subcutaneous Subcutaneous Subcutaneous -Post Debridement Size (cm) - Length 0.7 1.4 0.5 -Post Debridement Size (cm) - Width 0.6 0.3 0.2 -Post Debridement Size (cm) - Depth 0.1 0.1 0.1 -Total Square Cm 0.42 0.42 0.10 -Wound/Ulcer Outcome Not Healed Not Healed Not Healed -Ulcer Cleansing Rinsed/ Rinsed/ Rinsed/ Irrigated with Irrigated with Irrigated with Saline Saline Saline -Foul Odor after Cleansing No No No -Bioengineered Tissue No No No -Bleeding Controlled with Pressure Pressure Pressure -Treatment Response Procedure Procedure Procedure Tolerated Well Tolerated Well Tolerated Well Pain Scale: 0-10 Numeric Is Patient Pain Free? Yes Yes Yes 09/26/18 09:15 Wound Center Nurse 2 #6 LEFT ANKLE- SUPERIOR -Time 09:19 -Correct Patient Yes -Correct Side, Site, Position Yes -Correct Procedure -Procedure Performed No -Type of Procedure -Clinical Debridement -Post Debridement Size (cm) - Length 0 -Post Debridement Size (cm) - Width 0 -Post Debridement Size (cm) - Depth 0 -Total Square Cm 0 -Wound/Ulcer Outcome Healed- Epithelialized -Ulcer Cleansing -Foul Odor after Cleansing -Bioengineered Tissue -Bleeding Controlled with -Treatment Response #4 LEFT ANKLE -Time 09:21 -Correct Patient Yes -Correct Side, Site, Position Yes -Correct Procedure Yes -Procedure Performed Yes -Type of Procedure Debridement -Clinical Debridement Subcutaneous -Post Debridement Size (cm) - Length 6.4 -Post Debridement Size (cm) - Width 7.5 -Post Debridement Size (cm) - Depth 0.3 -Total Square Cm 48.00 -Wound/Ulcer Outcome Not Healed -Ulcer Cleansing Rinsed/ Irrigated with Saline -Foul Odor after Cleansing No -Bioengineered Tissue No -Type of bioengineered Tissue -Expiration Date -Product Lot Number -Percent Used -Saline Lot Number -Topical Lidocaine (%) -Bleeding Controlled with Pressure -Offloading No -Treatment Response Procedure Tolerated Well #5 LEFT MEDIAL FOOT- (ABOVE ARCH) -Time 09:20 -Correct Patient Yes -Correct Side, Site, Position Yes -Correct Procedure -Procedure Performed No -Type of Procedure -Clinical Debridement -Post Debridement Size (cm) - Length 0 -Post Debridement Size (cm) - Width 0 -Post Debridement Size (cm) - Depth 0 -Total Square Cm 0 -Wound/Ulcer Outcome Healed- Epithelialized -Ulcer Cleansing -Foul Odor after Cleansing -Bioengineered Tissue -Bleeding Controlled with -Treatment Response Pain Scale: 0-10 Numeric Is Patient Pain Free? Yes Wound debrided: Left medial ankle Laterality: Left Type of Debridement: Excisional debridement Anesthesia Used: 4% Lidocaine Solution Depth: in the subcutaneous layer Percentage of wound debrided: 100 Instrument Used: 7mm curette Tissue Removed: Adherent slough, fibrin, hyperkeratotic tissue Severity: Fat Layer Exposed Amount of bleeding with debridement: Mild Bleeding Controlled with: Pressure Patient tolerated procedure well Assessment/Plan Assessment: Right medial ankle ulcer resolved. Peripheral vascular occlusive disease. Nonhealing ulcers resolved. Edema Plan: Patient was carefully examined and evaluated today. He missed his scheduled appointment with Dr. Spencer last week. Subcutaneous debridement was performed to the aforementioned ulcer site as noted in the clinical panel again this week. Once complete, the ulcer site was carefully cleansed and then dressed with Elvira to the base followed by a dry sterile dressing and Tubigrip for compression. The patient is to continue the dressing changes in this manner on a daily basis. The importance of offloading the ulcer sites was discussed at length with this patient again today. He says he is unable to completely stop working, but he does have the option for light duty. He is to continue with this. I stressed the importance of keeping pressure off of all of the ulcer sites and how this will impact his healing potential. Patient was instructed to be off his feet as much as possible and to keep the lower extremities elevated while not at work. The importance of compression was also discussed with this patient today. Patient finished prescription for levaquin and augmentin prescribed by Dr. Farris. LEAS studies were reviewed prior to patient's visit and the results are in the patient's chart. I continue to recommend nutritional supplementation with a high-protein diet at this time in order to help optimize ulcer healing potential. Smoking cessation was stressed again today. We will obtain an MRI of the foot/ankle area to further evaluate. Will monitor for these results. All signs and symptoms of local and systemic infection were discussed in great detail with the patient today and he was instructed to go to the emergency room immediately should he notice any of these. All questions were answered to the patient's satisfaction. Patient will follow-up in clinic in 1 week to check on progress, or sooner if needed.
== END 2018-09-27 23:59 ==
LOC: WC 08:30
PROVIDERS: Family Provider Internal Medicine Infectious Disease; PCP Internal Medicine Infectious Disease; Referring Provider Podiatrist; Visit Provider Podiatrist
DX: I87.312 Chronic venous hypertension (idiopathic) with ulcer of left lower extremity (principal); I73.9 Peripheral vascular disease, unspecified; I87.2 Venous insufficiency (chronic) (peripheral); R60.0 Localized edema; M79.605 Pain in left leg; L97.322 Non-pressure chronic ulcer of left ankle with fat layer exposed; L97.522 Non-pressure chronic ulcer of other part of left foot with fat layer exposed; I99.8 Other disorder of circulatory system
CPT/HCPCS: 11042; 11045; 15275; 87070; 87075; 87077; 87186; 87205; 87640; Q4131

== ENCOUNTER 2018-10-24 09:00 | Outpatient (RCR) | payer BC, SELFPAY ==
[2017-08-09 11:07] VITALS: BMI 31.4
[2018-09-28 00:29] VITALS: BP 147/92; PULSE 90; RESP 16; TEMP 36.8
[2018-10-03 08:57] VITALS: BP 137/92; PULSE 97; RESP 18; TEMP 36.6; BMI 31.4
--- NOTE | 2018-10-03 13:38 | PCM.WC.PN ---
(1) Ulcer of left lower extremity with fat layer exposed Status: Acute Current Visit: No Code(s): L97.922 - Non-pressure chronic ulcer of unspecified part of left lower leg with fat layer exposed (2) PVD (peripheral vascular disease) Status: Acute Current Visit: No Code(s): I73.9 - Peripheral vascular disease, unspecified (3) Chronic venous insufficiency Status: Acute Current Visit: No Code(s): I87.2 - Venous insufficiency (chronic) (peripheral) (4) Edema, lower extremity Status: Acute Current Visit: No Code(s): R60.0 - Localized edema (5) Pain of left lower extremity Status: Acute Current Visit: No Code(s): M79.605 - Pain in left leg (6) Delayed wound healing Status: Acute Current Visit: No Code(s): T14.8XXD - Other injury of unspecified body region, subsequent encounter Type of Wound Chief Complaint: ulcers to the left lower leg/foot History of Wound: This is a 51-year-old white male presents to wound healing center with a long-standing history of chronic venous insufficiency, chronic venous hypertension, lower extremity edema, lower extremity pain, and 3 ulcer sites to left lower leg/foot. The patient has had multiple ulcerations in the lower extremities bilaterally, related to his chronic venous disease. He also has chronic venous stasis changes. The skin changes include hyperpigmentation. 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 He is currently wearing graduated compression stockings which are documented to be 20-30 mmHg compression, however, he says the ones he has on are about a year old. He has new ones at home that he has not been wearing. 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 Patient says that he noticed a small area start opening on the top of his left foot about 8-10 months ago. He says he tried to doctor this on his own with old wound care supplies. He says this continued to get slightly worse. Then, about 4 months ago, he noticed the area around the medial malleolus starting to break down, and that has slowly been getting worse too. He also has a small anterior lower leg ulcer. Nothing he has done on his own to treat these areas has helped. He decided he should finally come back to the wound healing center to see if he can get the areas to heal again. Progress of Wound: Ulcer to left medial ankle shows slight improvement to ulcer depth over majority of ulcer base. Patient has having daily shekhar dressing changes. Patient denies any feelings of nausea, vomiting, fever, chills at this time. - Physical Exam Vital Signs Temp Pulse Resp BP 97.8 F 97 18 137/92 H 10/03/18 08:57 12 08:57 10/03/18 08:57 10/03/18 08:57 General: Alert, Oriented x3, Cooperative, No apparent distress Extremities: Capillary Refill Less than 3 Seconds, No Calf Tenderness - Negative Lakisha and Hough sign, Diminished Peripheral Pulses - DP pulses palpable and PT pulses nonpalpable, Edema - Slight lower extremity edema Skin: Ulcer/ Wound - Ulcer to left medial ankle with fat layer exposed. The base of the ulcer site continues to show improvement in decreased depth over majority of the area. The base remains a mixture of adherent slough, fibrin, granular tissue, biofilm, as well as some slight surrounding hyperkeratotic tissue. There is no probing to bone, no tracking, no undermining, no surrounding or extending cellulitis, no purulence, no malodor, no increase in warmth. Wound Measurements and Assessment WC - Nurse 1 - General Ulcer Measurement Start: 10/03/18 08:57 Freq: Status: Active Protocol: Activity Type Activity Date Activity User E-Sign Co-Sign Detail Recorded Client Recorded Date Recorded By Document 10/03/18 08:57 DL [id number] 10/03/18 09:02 DL 10/03/18 08:57 Wound Center Nurse 1 [Ulcer Assessment] #4 LEFT ANKLE -Current Size (cm) - Length 7.4 -Current Size (cm) - Width 7.8 -Current Size (cm) - Depth 0.5 -Total Square Cm 57.72 -Photo Taken No -Exudate Amt Medium (34-66%) -Exudate Type Serosanguineous -Wound Margin Thickened -Granulation Amt Medium (34-66%) -Granulation Quality Red -Necrosis Amt Medium (34-66%) -Necrotic Tissue Type Adherent Slough -Structure Exposed N/A -Texture (Ara-wound Skin Appearance) Localized Edema Scarring -Moisture (Ara-wound Skin Appearance Dry/Scaly ) -Color (Ara-wound Skin Appearance) Rubor -Temperature (Ara-wound Skin No Abnormality Appearance) (Pt Warm) -Ulcer Cleansing Rinsed/ Irrigated with Saline -Foul Odor after Cleansing No -Anesthetic Used 4% Lidocaine Solution [Edema Assessment] -Left Calf (cm) 33.5 -Left Ankle (cm) 23 - Nurse 2 - General Ulcer CM Notes Start: 10/03/18 08:57 Freq: Status: Active Protocol: Activity Type Activity Date Activity User E-Sign Co-Sign Detail Recorded Client Recorded Date Recorded By Document 10/03/18 09:27 DV [id number] 10/03/18 09:53 DV 10/03/18 09:27 Wound Center Nurse 2 [Procedure/Treatment] #4 LEFT ANKLE -Time 09:27 -Correct Patient Yes -Correct Side, Site, Position Yes -Correct Procedure Yes -Procedure Performed Yes -Type of Procedure Debridement -Clinical Debridement Subcutaneous -Post Debridement Size (cm) - Length 6.4 -Post Debridement Size (cm) - Width 7.5 -Post Debridement Size (cm) - Depth 0.3 -Total Square Cm 48.00 -Wound/Ulcer Outcome Not Healed -Foul Odor after Cleansing No -Bioengineered Tissue Yes -Type of bioengineered Tissue EPIFIX -Expiration Date 05/29/23 -Product Lot Number [id number] -Percent Used 100 -Saline Lot Number NA -Topical Lidocaine (%) 4 -Bleeding Controlled with Pressure -Treatment Response Procedure Tolerated Well [See Physician Procedure note for Specifics] Pain Scale: 0-10 Numeric [Pain] -Is Patient Pain Free? Yes Musculoskeletal: No Tenderness to Palpation of Joints or Extremities, Tenderness - With manipulation of some of the areas of the ulcer Neurological: Sensory exam intact to light touch and pain Psych/Mental Status: Normal Affect, Appropriate Debridement Note Post-Debridement Measurements/Treatment - Nurse 2 - General Ulcer CM Notes Start: 10/03/18 08:57 Freq: Status: Active Protocol: Activity Type Activity Date Activity User E-Sign Co-Sign Detail Recorded Client Recorded Date Recorded By Document 10/03/18 09:27 DV [id number] 10/03/18 09:53 DV 10/03/18 09:27 Wound Center Nurse 2 #4 LEFT ANKLE -Time 09:27 -Correct Patient Yes -Correct Side, Site, Position Yes -Correct Procedure Yes -Procedure Performed Yes -Type of Procedure Debridement -Clinical Debridement Subcutaneous -Post Debridement Size (cm) - Length 6.4 -Post Debridement Size (cm) - Width 7.5 -Post Debridement Size (cm) - Depth 0.3 -Total Square Cm 48.00 -Wound/Ulcer Outcome Not Healed -Foul Odor after Cleansing No -Bioengineered Tissue Yes -Type of bioengineered Tissue EPIFIX -Expiration Date 05/29/23 -Product Lot Number [id number] -Percent Used 100 -Saline Lot Number NA -Topical Lidocaine (%) 4 -Bleeding Controlled with Pressure -Treatment Response Procedure Tolerated Well Pain Scale: 0-10 Numeric Is Patient Pain Free? Yes Wound debrided: Left medial ankle Laterality: Left Type of Debridement: Excisional debridement Anesthesia Used: 4% Lidocaine Solution Depth: in the subcutaneous layer Percentage of wound debrided: 100 Instrument Used: 7mm curette Tissue Removed: Adherent slough, fibrin, hyperkeratotic tissue, biofilm Severity: Fat Layer Exposed Amount of bleeding with debridement: Mild Bleeding Controlled with: Pressure Patient tolerated procedure well Assessment/Plan Assessment: Right medial ankle ulcer resolved. Peripheral vascular occlusive disease. Nonhealing ulcers resolved. Edema Plan: Patient was carefully examined and evaluated today. Subcutaneous debridement was performed to the aforementioned ulcer site as noted in the clinical panel again this week. Once complete, the ulcer site was carefully cleansed and then dressed with epifix #3 to the ulcer periphery followed Aquacel extra, wound veil, paper tape, and an overlying absorptive dry sterile dressing and Tubigrip for compression. The patient is to keep everything under the wound veil intact for the next week, and he is able to change the overlying dressing above this layer as needed depending on drainage amount. The importance of offloading the ulcer sites was discussed at length with this patient again today. He says he is unable to completely stop working, but he does have the option for light duty. He is to continue with this. I stressed the importance of keeping pressure off of all of the ulcer sites and how this will impact his healing potential. Patient was instructed to be off his feet as much as possible and to keep the lower extremities elevated while not at work. The importance of compression was also discussed with this patient today. Patient finished prescription for levaquin and augmentin prescribed by Dr. Farris. LEAS studies were reviewed prior to patient's visit and the results are in the patient's chart. I continue to recommend nutritional supplementation with a high-protein diet at this time in order to help optimize ulcer healing potential. Smoking cessation was stressed again today. MRI was denied by insurance, however we will look into this and see if we can do a peer to peer. All signs and symptoms of local and systemic infection were discussed in great detail with the patient today and he was instructed to go to the emergency room immediately should he notice any of these. All questions were answered to the patient's satisfaction. Patient will follow-up in clinic in 1 week to check on progress, or sooner if needed.
--- NOTE | 2018-10-03 13:45 | PN.PCM_ITS ---
(1) Ulcer of left lower extremity with fat layer exposed Status: Acute Current Visit: No Code(s): L97.922 - Non-pressure chronic ulcer of unspecified part of left lower leg with fat layer exposed (2) PVD (peripheral vascular disease) Status: Acute Current Visit: No Code(s): I73.9 - Peripheral vascular disease, unspecified (3) Chronic venous insufficiency Status: Acute Current Visit: No Code(s): I87.2 - Venous insufficiency (chronic) (peripheral) (4) Edema, lower extremity Status: Acute Current Visit: No Code(s): R60.0 - Localized edema (5) Pain of left lower extremity Status: Acute Current Visit: No Code(s): M79.605 - Pain in left leg (6) Delayed wound healing Status: Acute Current Visit: No Code(s): T14.8XXD - Other injury of unspecified body region, subsequent encounter Type of Wound Chief Complaint: ulcers to the left lower leg/foot History of Wound: This is a 51-year-old white male presents to wound healing center with a long-standing history of chronic venous insufficiency, chronic venous hypertension, lower extremity edema, lower extremity pain, and 3 ulcer sites to left lower leg/foot. The patient has had multiple ulcerations in the lower extremities bilaterally, related to his chronic venous disease. He also has chronic venous stasis changes. The skin changes include hyperpigmentation. 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 He is currently wearing graduated compression stockings which are documented to be 20-30 mmHg compression, however, he says the ones he has on are about a year old. He has new ones at home that he has not been wearing. 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 Patient says that he noticed a small area start opening on the top of his left foot about 8-10 months ago. He says he tried to doctor this on his own with old wound care supplies. He says this continued to get slightly worse. Then, about 4 months ago, he noticed the area around the medial malleolus starting to break down, and that has slowly been getting worse too. He also has a small anterior lower leg ulcer. Nothing he has done on his own to treat these areas has helped. He decided he should finally come back to the wound healing center to see if he can get the areas to heal again. Progress of Wound: Ulcer to left medial ankle shows slight improvement to ulcer depth over majority of ulcer base. Patient has having daily shekhar dressing changes. Patient denies any feelings of nausea, vomiting, fever, chills at this time. - Physical Exam Vital Signs Temp Pulse Resp BP 97.8 F 97 18 137/92 H 10/03/18 08:57 12 08:57 10/03/18 08:57 10/03/18 08:57 General: Alert, Oriented x3, Cooperative, No apparent distress Extremities: Capillary Refill Less than 3 Seconds, No Calf Tenderness - Negative Lakisha and Hough sign, Diminished Peripheral Pulses - DP pulses palpable and PT pulses nonpalpable, Edema - Slight lower extremity edema Skin: Ulcer/ Wound - Ulcer to left medial ankle with fat layer exposed. The base of the ulcer site continues to show improvement in decreased depth over majority of the area. The base remains a mixture of adherent slough, fibrin, granular tissue, biofilm, as well as some slight surrounding hyperkeratotic tissue. There is no probing to bone, no tracking, no undermining, no vincent rrounding or extending cellulitis, no purulence, no malodor, no increase in warmth. Wound Measurements and Assessment WC - Nurse 1 - General Ulcer Measurement Start: 10/03/18 08:57 Freq: Status: Active Protocol: Activity Type Activity Date Activity User E-Sign Co-Sign Detail Recorded Client Recorded Date Recorded By Document 10/03/18 08:57 DL [id number] 10/03/18 09:02 DL 10/03/18 08:57 Wound Center Nurse 1 [Ulcer Assessment] #4 LEFT ANKLE -Current Size (cm) - Length 7.4 -Current Size (cm) - Width 7.8 -Current Size (cm) - Depth 0.5 -Total Square Cm 57.72 -Photo Taken No -Exudate Amt Medium (34-66%) -Exudate Type Serosanguineous -Wound Margin Thickened -Granulation Amt Medium (34-66%) -Granulation Quality Red -Necrosis Amt Medium (34-66%) -Necrotic Tissue Type Adherent Slough -Structure Exposed N/A -Texture (Ara-wound Skin Appearance) Localized Edema Scarring -Moisture (Ara-wound Skin Appearance Dry/Scaly ) -Color (Ara-wound Skin Appearance) Rubor -Temperature (Ara-wound Skin No Abnormality Appearance) (Pt Warm) -Ulcer Cleansing Rinsed/ Irrigated with Saline -Foul Odor after Cleansing No -Anesthetic Used 4% Lidocaine Solution [Edema Assessment] -Left Calf (cm) 33.5 -Left Ankle (cm) 23 - Nurse 2 - General Ulcer CM Notes Start: 10/03/18 08:57 Freq: Status: Active Protocol: Activity Type Activity Date Activity User E-Sign Co-Sign Detail Recorded Client Recorded Date Recorded By Document 10/03/18 09:27 DV [id number] 10/03/18 09:53 DV 10/03/18 09:27 Wound Center Nurse 2 [Procedure/Treatment] #4 LEFT ANKLE -Time 09:27 -Correct Patient Yes -Correct Side, Site, Position Yes -Correct Procedure Yes -Procedure Performed Yes -Type of Procedure Debridement -Clinical Debridement Subcutaneous -Post Debridement Size (cm) - Length 6.4 -Post Debridement Size (cm) - Width 7.5 -Post Debridement Size (cm) - Depth 0.3 -Total Square Cm 48.00 -Wound/Ulcer Outcome Not Healed -Foul Odor after Cleansing No -Bioengineered Tissue Yes -Type of bioengineered Tissue EPIFIX -Expiration Date 05/29/23 -Product Lot Number [id number] -Percent Used 100 -Saline Lot Number NA -Topical Lidocaine (%) 4 -Bleeding Controlled with Pressure -Treatment Response Procedure Tolerated Well [See Physician Procedure note for Specifics] Pain Scale: 0-10 Numeric [Pain] -Is Patient Pain Free? Yes Musculoskeletal: No Tenderness to Palpation of Joints or Extremities, Tenderness - With manipulation of some of the areas of the ulcer Neurological: Sensory exam intact to light touch and pain Psych/Mental Status: Normal Affect, Appropriate Debridement Note Post-Debridement Measurements/Treatment - Nurse 2 - General Ulcer CM Notes Start: 10/03/18 08:57 Freq: Status: Active Protocol: Activity Type Activity Date Activity User E-Sign Co-Sign Detail Recorded Client Recorded Date Recorded By Document 10/03/18 09:27 DV [id number] 10/03/18 09:53 DV 10/03/18 09:27 Wound Center Nurse 2 #4 LEFT ANKLE -Time 09:27 -Correct Patient Yes -Correct Side, Site, Position Yes -Correct Procedure Yes -Procedure Performed Yes -Type of Procedure Debridement -Clinical Debridement Subcutaneous -Post Debridement Size (cm) - Length 6.4 -Post Debridement Size (cm) - Width 7.5 -Post Debridement Size (cm) - Depth 0.3 -Total Square Cm 48.00 -Wound/Ulcer Outcome Not Healed -Foul Odor after Cleansing No -Bioengineered Tissue Yes -Type of bioengineered Tissue EPIFIX -Expiration Date 05/29/23 -Product Lot Number [id number] -Percent Used 100 -Saline Lot Number NA -Topical Lidocaine (%) 4 -Bleeding Controlled with Pressure -Treatment Response Procedure Tolerated Well Pain Scale: 0-10 Numeric Is Patient Pain Free? Yes Wound debrided: Left medial ankle Laterality: Left Type of Debridement: Excisional debridement Anesthesia Used: 4% Lidocaine Solution Depth: in the subcutaneous layer Percentage of wound debrided: 100 Instrument Used: 7mm curette Tissue Removed: Adherent slough, fibrin, hyperkeratotic tissue, biofilm Severity: Fat Layer Exposed Amount of bleeding with debridement: Mild Bleeding Controlled with: Pressure Patient tolerated procedure well Assessment/Plan Assessment: Right medial ankle ulcer resolved. Peripheral vascular occlusive disease. Nonhealing ulcers resolved. Edema Plan: Patient was carefully examined and evaluated today. Subcutaneous debridement was performed to the aforementioned ulcer site as noted in the clinical panel again this week. Once complete, the ulcer site was carefully cleansed and then dressed with epifix #3 to the ulcer periphery followed Aquacel extra, wound veil, paper tape, and an overlying absorptive dry sterile dressing and Tubigrip for compression. The patient is to keep everything under the wound veil intact for the next week, and he is able to change the overlying dressing above this layer as needed depending on drainage amount. The importance of offloading the ulcer sites was discussed at length with this patient again today. He says he is unable to completely stop working, but he does have the option for light duty. He is to continue with this. I stressed the importance of keeping pressure off of all of the ulcer sites and how this will impact his healing potential. Patient was instructed to be off his feet as much as possible and to keep the lower extremities elevated while not at work. The importance of compression was also discussed with this patient today. Patient finished prescription for levaquin and augmentin prescribed by Dr. Farris. LEAS studies were reviewed prior to patient's visit and the results are in the patient's chart. I continue to recommend nutritional supplementation with a high-protein diet at this time in order to help optimize ulcer healing potential. Smoking cessation was stressed again today. MRI was denied by insurance, however we will look into this and see if we can do a peer to peer. All signs and symptoms of local and systemic infection were discussed in great detail with the patient today and he was instructed to go to the emergency room immediately should he notice any of these. All questions were answered to the patient's satisfaction. Patient will follow-up in clinic in 1 week to check on progress, or sooner if needed.
[2018-10-10 09:09] VITALS: BMI 31.4
--- NOTE | 2018-10-10 09:58 | RAD_ITS ---
STUDY: X-RAY - LEFT ANKLE REASON FOR EXAM: Male, 53 years old. Medial pain TECHNIQUE: 3 view(s) of the ankle. COMPARISON: None. FINDINGS: Normal visualized distal tibia and fibula. Normal medial and lateral malleoli. Normal tibiotalar articulation and ankle mortise. Normal visualized talus and calcaneus. The visualized subtalar, talonavicular, calcaneocuboid and tarsal articulations are normal. Evidence of skin breakdown medial to the medial malleolus but this does not involve the medial malleolus, there is no subcutaneous emphysema. RAD/Ankle min 3 Views IMPRESSION: Skin ulceration noted medial to the medial malleolus but no associated osseous lesion or involvement Electronically Signed: Arnulfo Wilson MD at 10:21 EST , Service support ,
--- NOTE | 2018-10-10 09:58 | RAD_ITS ---
STUDY: X-RAY - LEFT FOOT CLINICAL: Male, 53 years old. Medial pain TECHNIQUE: 3 view(s) of the foot. COMPARISON: None. FINDINGS: Normal talus, calcaneus, and tarsal bones. Normal visualized subtalar, talonavicular, calcaneocuboid, tarsal and tarsometatarsal articulations. Normal metatarsi. Normal metatarsophalangeal joint of the great toe. Normal tibial and fibular sesamoid bones. Normal interphalangeal joint of the great toe. Normal phalanges of the great toe. Normal second through fifth metatarsophalangeal joints. Normal interphalangeal joints and phalanges of the lesser toes. The soft tissue structures are unremarkable. No demonstrated fracture or erosive osseous lesion RAD/Foot min 3 Views IMPRESSION: Normal x-ray examination of the foot. Electronically Signed: Arnulfo Wilson MD at 10:20 EST , Service support ,
--- NOTE | 2018-10-10 11:21 | PCM.WC.PN ---
(1) Ulcer of left lower extremity with fat layer exposed Status: Acute Current Visit: No Code(s): L97.922 - Non-pressure chronic ulcer of unspecified part of left lower leg with fat layer exposed (2) PVD (peripheral vascular disease) Status: Acute Current Visit: No Code(s): I73.9 - Peripheral vascular disease, unspecified (3) Chronic venous insufficiency Status: Acute Current Visit: No Code(s): I87.2 - Venous insufficiency (chronic) (peripheral) (4) Edema, lower extremity Status: Acute Current Visit: No Code(s): R60.0 - Localized edema (5) Pain of left lower extremity Status: Acute Current Visit: No Code(s): M79.605 - Pain in left leg (6) Delayed wound healing Status: Acute Current Visit: No Code(s): T14.8XXD - Other injury of unspecified body region, subsequent encounter Type of Wound Chief Complaint: ulcers to the left lower leg/foot History of Wound: This is a 51-year-old white male presents to wound healing center with a long-standing history of chronic venous insufficiency, chronic venous hypertension, lower extremity edema, lower extremity pain, and 3 ulcer sites to left lower leg/foot. The patient has had multiple ulcerations in the lower extremities bilaterally, related to his chronic venous disease. He also has chronic venous stasis changes. The skin changes include hyperpigmentation. The patient has previously undergone endovenous laser ablation of the left and right great saphenous vein, the small saphenous vein, the left accessory saphenous vein, and an incompetent left calf international project engineer vein located 15 cm proximal to the left medial malleolus. He is currently wearing graduated compression stockings which are documented to be 20-30 mmHg compression, however, he says the ones he has on are about a year old. He has new ones at home that he has not been wearing. 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 Patient says that he noticed a small area start opening on the top of his left foot about 8-10 months ago. He says he tried to doctor this on his own with old wound care supplies. He says this continued to get slightly worse. Then, about 4 months ago, he noticed the area around the medial malleolus starting to break down, and that has slowly been getting worse too. He also has a small anterior lower leg ulcer. Nothing he has done on his own to treat these areas has helped. He decided he should finally come back to the wound healing center to see if he can get the areas to heal again. Progress of Wound: Ulcer to left medial ankle shows no improvement since last week. Patient denies any feelings of nausea, vomiting, fever, chills at this time. - Physical Exam Vital Signs Temp Pulse Resp BP 97.8 F 97 18 137/92 H 10/03/18 08:57 1218 08:57 12 08:57 10/03/18 08:57 General: Alert, Oriented x3, Cooperative, No apparent distress Extremities: Capillary Refill Less than 3 Seconds, No Calf Tenderness - Negative Lakisha and Hough sign, Diminished Peripheral Pulses - DP pulses palpable and PT pulses nonpalpable, Edema - Slight lower extremity edema Skin: Ulcer/ Wound - Ulcer to left medial ankle with fat layer exposed and new ulcer to dorsal left foot. The bases of the ulcer sites show adherent slough, fibrin, granular tissue, biofilm, as well as some surrounding hyperkeratotic tissue. There is no probing to bone, no tracking, no undermining, no surrounding or extending cellulitis, no purulence, no malodor, no increase in warmth. Wound Measurements and Assessment WC - Nurse 1 - General Ulcer Measurement Start: 10/03/18 08:57 Freq: Status: Active Protocol: Activity Type Activity Date Activity User E-Sign Co-Sign Detail Recorded Client Recorded Date Recorded By Document 10/10/18 09:09 DV [id number] 10/10/18 09:21 DV 10/10/18 09:09 Wound Center Nurse 1 [Ulcer Assessment] #6 L Dorsal Cluster -Current Size (cm) - Length 2.5 -Current Size (cm) - Width 2 -Current Size (cm) - Depth 0.3 -Total Square Cm 5.0 -Photo Taken Yes -Classification - Thickness Full Thickness without Exposed Support Structure -Exudate Amt Small (1-33%) -Exudate Type Serosanguineous -Wound Margin Thickened -Granulation Amt Medium (34-66%) -Granulation Quality [place] Red -Necrosis Amt Small (1-33%) -Necrotic Tissue Type Adherent Slough -Structure Exposed N/A -Texture (Ara-wound Skin Appearance) Localized Edema Scarring -Moisture (Ara-wound Skin Appearance Dry/Scaly ) -Color (Ara-wound Skin Appearance) Hemosiderin Staining -Temperature (Ara-wound Skin No Abnormality Appearance) (Pt Warm) -Tenderness on Palpation (Ara-wound No Skin Appearance) -Ulcer Cleansing Rinsed/ Irrigated with Saline -Foul Odor after Cleansing No -Anesthetic Used 4% Lidocaine Solution #4 LEFT ANKLE -Combined with other wound No -Current Size (cm) - Length 5.7 -Current Size (cm) - Width 7.1 -Current Size (cm) - Depth 0.3 -Total Square Cm 40.47 -Photo Taken No -Exudate Amt Medium (34-66%) -Exudate Type Serosanguineous -Wound Margin Thickened -Granulation Amt Medium (34-66%) -Granulation Quality Red -Necrosis Amt Medium (34-66%) -Necrotic Tissue Type Adherent Slough -Texture (Ara-wound Skin Appearance) Localized Edema Scarring -Moisture (Ara-wound Skin Appearance Dry/Scaly ) -Color (Ara-wound Skin Appearance) Hemosiderin Staining Rubor -Temperature (Ara-wound Skin No Abnormality Appearance) (Pt Warm) -Tenderness on Palpation (Ara-wound No Skin Appearance) -Ulcer Cleansing Rinsed/ Irrigated with Saline -Foul Odor after Cleansing No -Anesthetic Used 4% Lidocaine Solution WC - Nurse 2 - General Ulcer CM Notes Start: 10/03/18 08:57 Freq: Status: Active Protocol: Activity Type Activity Date Activity User E-Sign Co-Sign Detail Recorded Client Recorded Date Recorded By Document 10/10/18 09:23 DV [id number] 10/10/18 09:40 DV 10/10/18 09:23 Wound Center Nurse 2 [Procedure/Treatment] #6 L Dorsal Cluster -Time 09:24 -Correct Patient Yes -Correct Side, Site, Position Yes -Correct Procedure Yes -Procedure Performed Yes -Type of Procedure Debridement -Clinical Debridement Subcutaneous -Post Debridement Size (cm) - Length 2.1 -Post Debridement Size (cm) - Width 1.1 -Post Debridement Size (cm) - Depth 0.2 -Total Square Cm 2.31 -Wound/Ulcer Outcome Not Healed -Ulcer Cleansing Rinsed/ Irrigated with Saline -Foul Odor after Cleansing No -Bioengineered Tissue No -Bleeding Controlled with Pressure -Offloading No -Treatment Response Procedure Tolerated Well #4 LEFT ANKLE -Time 09:25 -Correct Patient Yes -Correct Side, Site, Position Yes -Correct Procedure Yes -Procedure Performed Yes -Type of Procedure Debridement -Clinical Debridement Subcutaneous -Post Debridement Size (cm) - Length 7.0 -Post Debridement Size (cm) - Width 7.9 -Post Debridement Size (cm) - Depth 0.3 -Total Square Cm 55.30 -Wound/Ulcer Outcome Not Healed -Ulcer Cleansing Rinsed/ Irrigated with Saline -Foul Odor after Cleansing No -Bioengineered Tissue No -Bleeding Controlled with Pressure -Offloading No -Treatment Response Procedure Tolerated Well [See Physician Procedure note for Specifics] Pain Scale: 0-10 Numeric [Pain] -Is Patient Pain Free? Yes Musculoskeletal: No Tenderness to Palpation of Joints or Extremities, Tenderness - With manipulation of ulcer sites Neurological: Sensory exam intact to light touch and pain Psych/Mental Status: Normal Affect, Appropriate Debridement Note Post-Debridement Measurements/Treatment WC - Nurse 2 - General Ulcer CM Notes Start: 10/03/18 08:57 Freq: Status: Active Protocol: Activity Type Activity Date Activity User E-Sign Co-Sign Detail Recorded Client Recorded Date Recorded By Document 10/03/18 09:27 DV [id number] 10/03/18 09:53 DV Document 10/10/18 09:23 DV [id number] 10/10/18 09:40 DV 10/03/18 10/10/18 09:27 09:23 Wound Center Nurse 2 #6 L Dorsal Cluster -Time 09:24 -Correct Patient Yes -Correct Side, Site, Position Yes -Correct Procedure Yes -Procedure Performed Yes -Type of Procedure Debridement -Clinical Debridement Subcutaneous -Post Debridement Size (cm) - Length 2.1 -Post Debridement Size (cm) - Width 1.1 -Post Debridement Size (cm) - Depth 0.2 -Total Square Cm 2.31 -Wound/Ulcer Outcome Not Healed -Ulcer Cleansing Rinsed/ Irrigated with Saline -Foul Odor after Cleansing No -Bioengineered Tissue No -Bleeding Controlled with Pressure -Offloading No -Treatment Response Procedure Tolerated Well #4 LEFT ANKLE -Time 09:27 09:25 -Correct Patient Yes Yes -Correct Side, Site, Position Yes Yes -Correct Procedure Yes Yes -Procedure Performed Yes Yes -Type of Procedure Debridement Debridement -Clinical Debridement Subcutaneous Subcutaneous -Post Debridement Size (cm) - Length 6.4 7.0 -Post Debridement Size (cm) - Width 7.5 7.9 -Post Debridement Size (cm) - Depth 0.3 0.3 -Total Square Cm 48.00 55.30 -Wound/Ulcer Outcome Not Healed Not Healed -Ulcer Cleansing Rinsed/ Irrigated with Saline -Foul Odor after Cleansing No No -Bioengineered Tissue Yes No -Type of bioengineered Tissue EPIFIX -Expiration Date 05/29/23 -Product Lot Number [id number] -Percent Used 100 -Saline Lot Number NA -Topical Lidocaine (%) 4 -Bleeding Controlled with Pressure Pressure -Offloading No -Treatment Response Procedure Procedure Tolerated Well Tolerated Well Pain Scale: 0-10 Numeric Is Patient Pain Free? Yes Yes Wound debrided: Left medial ankle Laterality: Left Type of Debridement: Excisional debridement Anesthesia Used: 4% Lidocaine Solution Depth: in the subcutaneous layer Percentage of wound debrided: 100 Instrument Used: 7mm curette Tissue Removed: Adherent slough, fibrin, hyperkeratotic tissue, biofilm Severity: Fat Layer Exposed Amount of bleeding with debridement: Mild Bleeding Controlled with: Pressure Patient tolerated procedure well Assessment/Plan Assessment: Right medial ankle ulcer resolved. Peripheral vascular occlusive disease. Nonhealing ulcers resolved. Edema Plan: Patient was carefully examined and evaluated today. Subcutaneous debridement was performed to the aforementioned ulcer site as noted in the clinical panel again this week. Once complete, the ulcer sites were carefully cleansed and then dressed with Elvira to the bases followed by dry sterile dressing and Tubigrip for compression. Due to the ulcer slightly getting larger in size, new cultures were taken again today. Three-view x-rays of the left foot and ankle were also ordered today. We will continue to monitor for all these results. The importance of offloading the ulcer sites was discussed at length with this patient again today. He says he is unable to completely stop working, but he does have the option for light duty. He is to continue with this. I stressed the importance of keeping pressure off of all of the ulcer sites and how this will impact his healing potential. Patient was instructed to be off his feet as much as possible and to keep the lower extremities elevated while not at work. The importance of compression was also discussed with this patient today. Patient finished prescription for levaquin and augmentin prescribed by Dr. Farris. LEAS studies were reviewed at a previous patient visit and the results are in the patient's chart. I continue to recommend nutritional supplementation with a high-protein diet at this time in order to help optimize ulcer healing potential. Smoking cessation was stressed again today. All signs and symptoms of local and systemic infection were discussed in great detail with the patient today and he was instructed to go to the emergency room immediately should he notice any of these. All questions were answered to the patient's satisfaction. Patient will follow-up in clinic in 1 week to check on progress, or sooner if needed.
--- NOTE | 2018-10-10 11:28 | PN.PCM_ITS ---
(1) Ulcer of left lower extremity with fat layer exposed Status: Acute Current Visit: No Code(s): L97.922 - Non-pressure chronic ulcer of unspecified part of left lower leg with fat layer exposed (2) PVD (peripheral vascular disease) Status: Acute Current Visit: No Code(s): I73.9 - Peripheral vascular disease, unspecified (3) Chronic venous insufficiency Status: Acute Current Visit: No Code(s): I87.2 - Venous insufficiency (chronic) (peripheral) (4) Edema, lower extremity Status: Acute Current Visit: No Code(s): R60.0 - Localized edema (5) Pain of left lower extremity Status: Acute Current Visit: No Code(s): M79.605 - Pain in left leg (6) Delayed wound healing Status: Acute Current Visit: No Code(s): T14.8XXD - Other injury of unspecified body region, subsequent encounter Type of Wound Chief Complaint: ulcers to the left lower leg/foot History of Wound: This is a 51-year-old white male presents to wound healing center with a long-standing history of chronic venous insufficiency, chronic venous hypertension, lower extremity edema, lower extremity pain, and 3 ulcer sites to left lower leg/foot. The patient has had multiple ulcerations in the lower extremities bilaterally, related to his chronic venous disease. He also has chronic venous stasis changes. The skin changes include hyperpigmentation. The patient has previously undergone endovenous laser ablation of the left and right great saphenous vein, the small saphenous vein, the left accessory saphenous vein, and an incompetent left calf safety admin assistant vein located 15 cm p roximal to the left medial malleolus. He is currently wearing graduated compression stockings which are documented to be 20-30 mmHg compression, however, he says the ones he has on are about a year old. He has new ones at home that he has not been wearing. 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 Patient says that he noticed a small area start opening on the top of his left foot about 8-10 months ago. He says he tried to doctor this on his own with old wound care supplies. He says this continued to get slightly worse. Then, about 4 months ago, he noticed the area around the medial malleolus starting to break down, and that has slowly been getting worse too. He also has a small anterior lower leg ulcer. Nothing he has done on his own to treat these areas has helped. He decided he should finally come back to the wound healing center to see if he can get the areas to heal again. Progress of Wound: Ulcer to left medial ankle shows no improvement since last week. Patient denies any feelings of nausea, vomiting, fever, chills at this time. - Physical Exam Vital Signs Temp Pulse Resp BP 97.8 F 97 18 137/92 H 10/03/18 08:57 12 08:57 12 08:57 10/03/18 08:57 General: Alert, Oriented x3, Cooperative, No apparent distress Extremities: Capillary Refill Less than 3 Seconds, No Calf Tenderness - Negative Lakisha and Hough sign, Diminished Peripheral Pulses - DP pulses palpable and PT pulses nonpalpable, Edema - Slight lower extremity edema Skin: Ulcer/ Wound - Ulcer to left medial ankle with fat layer exposed and new ulcer to dorsal left foot. The bases of the ulcer sites show adherent slough, fibrin, granular tissue, biofilm, as well as some surrounding hyperkeratotic tissue. There is no probing to bone, no tracking, no undermining, no surrounding or extending cellulitis, no purulence, no malodor, no increase in warmth. Wound Measurements and Assessment WC - Nurse 1 - General Ulcer Measurement Start: 10/03/18 08:57 Freq: Status: Active Protocol: Activity Type Activity Date Activity User E-Sign Co-Sign Detail Recorded Client Recorded Date Recorded By Document 10/10/18 09:09 DV [id number] 10/10/18 09:21 DV 10/10/18 09:09 Wound Center Nurse 1 [Ulcer Assessment] #6 L Dorsal Cluster -Current Size (cm) - Length 2.5 -Current Size (cm) - Width 2 -Current Size (cm) - Depth 0.3 -Total Square Cm 5.0 -Photo Taken Yes -Classification - Thickness Full Thickness without Exposed Support Structure -Exudate Amt Small (1-33%) -Exudate Type Serosanguineous -Wound Margin Thickened -Granulation Amt Medium (34-66%) -Granulation Quality [place] Red -Necrosis Amt Small (1-33%) -Necrotic Tissue Type Adherent Slough -Structure Exposed N/A -Texture (Ara-wound Skin Appearance) Localized Edema Scarring -Moisture (Ara-wound Skin Appearance Dry/Scaly ) -Color (Ara-wound Skin Appearance) Hemosiderin Staining -Temperature (Ara-wound Skin No Abnormality Appearance) (Pt Warm) -Tenderness on Palpation (Ara-wound No Skin Appearance) -Ulcer Cleansing Rinsed/ Irrigated with Saline -Foul Odor after Cleansing No -Anesthetic Used 4% Lidocaine Solution #4 LEFT ANKLE -Combined with other wound No -Current Size (cm) - Length 5.7 -Current Size (cm) - Width 7.1 -Current Size (cm) - Depth 0.3 -Total Square Cm 40.47 -Photo Taken No -Exudate Amt Medium (34-66%) -Exudate Type Serosanguineous -Wound Margin Thickened -Granulation Amt Medium (34-66%) -Granulation Quality Red -Necrosis Amt Medium (34-66%) -Necrotic Tissue Type Adherent Slough -Texture (Ara-wound Skin Appearance) Localized Edema Scarring -Moisture (Ara-wound Skin Appearance Dry/Scaly ) -Color (Ara-wound Skin Appearance) Hemosiderin Staining Rubor -Temperature (Ara-wound Skin No Abnormality Appearance) (Pt Warm) -Tenderness on Palpation (Ara-wound No Skin Appearance) -Ulcer Cleansing Rinsed/ Irrigated with Saline -Foul Odor after Cleansing No -Anesthetic Used 4% Lidocaine Solution WC - Nurse 2 - General Ulcer CM Notes Start: 10/03/18 08:57 Freq: Status: Active Protocol: Activity Type Activity Date Activity User E-Sign Co-Sign Detail Recorded Client Recorded Date Recorded By Document 10/10/18 09:23 DV [id number] 10/10/18 09:40 DV 10/10/18 09:23 Wound Center Nurse 2 [Procedure/Treatment] #6 L Dorsal Cluster -Time 09:24 -Correct Patient Yes -Correct Side, Site, Position Yes -Correct Procedure Yes -Procedure Performed Yes -Type of Procedure Debridement -Clinical Debridement Subcutaneous -Post Debridement Size (cm) - Length 2.1 -Post Debridement Size (cm) - Width 1.1 -Post Debridement Size (cm) - Depth 0.2 -Total Square Cm 2.31 -Wound/Ulcer Outcome Not Healed -Ulcer Cleansing Rinsed/ Irrigated with Saline -Foul Odor after Cleansing No -Bioengineered Tissue No -Bleeding Controlled with Pressure -Offloading No -Treatment Response Procedure Tolerated Well #4 LEFT ANKLE -Time 09:25 -Correct Patient Yes -Correct Side, Site, Position Yes -Correct Procedure Yes -Procedure Performed Yes -Type of Procedure Debridement -Clinical Debridement Subcutaneous -Post Debridement Size (cm) - Length 7.0 -Post Debridement Size (cm) - Width 7.9 -Post Debridement Size (cm) - Depth 0.3 -Total Square Cm 55.30 -Wound/Ulcer Outcome Not Healed -Ulcer Cleansing Rinsed/ Irrigated with Saline -Foul Odor after Cleansing No -Bioengineered Tissue No -Bleeding Controlled with Pressure -Offloading No -Treatment Response Procedure Tolerated Well [See Physician Procedure note for Specifics] Pain Scale: 0-10 Numeric [Pain] -Is Patient Pain Free? Yes Musculoskeletal: No Tenderness to Palpation of Joints or Extremities, Tenderness - With manipulation of ulcer sites Neurological: Sensory exam intact to light touch and pain Psych/Mental Status: Normal Affect, Appropriate Debridement Note Post-Debridement Measurements/Treatment WC - Nurse 2 - General Ulcer CM Notes Start: 10/03/18 08:57 Freq: Status: Active Protocol: Activity Type Activity Date Activity User E-Sign Co-Sign Detail Recorded Client Recorded Date Recorded By Document 10/03/18 09:27 DV [id number] 10/03/18 09:53 DV Document 10/10/18 09:23 DV [id number] 10/10/18 09:40 DV 10/03/18 10/10/18 09:27 09:23 Wound Center Nurse 2 #6 L Dorsal Cluster -Time 09:24 -Correct Patient Yes -Correct Side, Site, Position Yes -Correct Procedure Yes -Procedure Performed Yes -Type of Procedure Debridement -Clinical Debridement Subcutaneous -Post Debridement Size (cm) - Length 2.1 -Post Debridement Size (cm) - Width 1.1 -Post Debridement Size (cm) - Depth 0.2 -Total Square Cm 2.31 -Wound/Ulcer Outcome Not Healed -Ulcer Cleansing Rinsed/ Irrigated with Saline -Foul Odor after Cleansing No -Bioengineered Tissue No -Bleeding Controlled with Pressure -Offloading No -Treatment Response Procedure Tolerated Well #4 LEFT ANKLE -Time 09:27 09:25 -Correct Patient Yes Yes -Correct Side, Site, Position Yes Yes -Correct Procedure Yes Yes -Procedure Performed Yes Yes -Type of Procedure Debridement Debridement -Clinical Debridement Subcutaneous Subcutaneous -Post Debridement Size (cm) - Length 6.4 7.0 -Post Debridement Size (cm) - Width 7.5 7.9 -Post Debridement Size (cm) - Depth 0.3 0.3 -Total Square Cm 48.00 55.30 -Wound/Ulcer Outcome Not Healed Not Healed -Ulcer Cleansing Rinsed/ Irrigated with Saline -Foul Odor after Cleansing No No -Bioengineered Tissue Yes No -Type of bioengineered Tissue EPIFIX -Expiration Date 05/29/23 -Product Lot Number [id number] -Percent Used 100 -Saline Lot Number NA -Topical Lidocaine (%) 4 -Bleeding Controlled with Pressure Pressure -Offloading No -Treatment Response Procedure Procedure Tolerated Well Tolerated Well Pain Scale: 0-10 Numeric Is Patient Pain Free? Yes Yes Wound debrided: Left medial ankle Laterality: Left Type of Debridement: Excisional debridement Anesthesia Used: 4% Lidocaine Solution Depth: in the subcutaneous layer Percentage of wound debrided: 100 Instrument Used: 7mm curette Tissue Removed: Adherent slough, fibrin, hyperkeratotic tissue, biofilm Severity: Fat Layer Exposed Amount of bleeding with debridement: Mild Bleeding Controlled with: Pressure Patient tolerated procedure well Assessment/Plan Assessment: Right medial ankle ulcer resolved. Peripheral vascular occlusive disease. Nonhealing ulcers resolved. Edema Plan: Patient was carefully examined and evaluated today. Subcutaneous debridement was performed to the aforementioned ulcer site as noted in the clinical panel again this week. Once complete, the ulcer sites were carefully cleansed and then dressed with Elvira to the bases followed by dry sterile dressing and Tubigrip for compression. Due to the ulcer slightly getting larger in size, new cultures were taken again today. Three-view x-rays of the left foot and ankle were also ordered today. We will continue to monitor for all these results. The importance of offloading the ulcer sites was discussed at length with this patient again today. He says he is unable to completely stop working, but he does have the option for light duty. He is to continue with this. I stressed the importance of keeping pressure off of all of the ulcer sites and how this will impact his healing potential. Patient was instructed to be off his feet as much as possible and to keep the lower extremities elevated while not at work. The importance of compression was also discussed with this patient today. Patient finished prescription for levaquin and augmentin prescribed by Dr. Farris. LEAS studies were reviewed at a previous patient visit and the results are in the patient's chart. I continue to recommend nutritional supplementation with a high-protein diet at this time in order to help optimize ulcer healing potential. Smoking cessation was stressed again today. All signs and symptoms of local and systemic infection were discussed in great detail with the patient today and he was instructed to go to the emergency room immediately should he notice any of these. All questions were answered to the patient's satisfaction. Patient will follow-up in clinic in 1 week to check on progress, or sooner if needed.
[2018-10-10 18:14] LABS: M R Staph aureus DNA By PCR POSITIVE (Negative); Staph aureus DNA By PCR POSITIVE (Negative)
[2018-10-10 18:15] LABS: Probe Check PASS
[2018-10-17 08:58] VITALS: BP 146/92; PULSE 91; RESP 16; TEMP 36.7; BMI 31.4
--- NOTE | 2018-10-17 09:24 | PCM.WC.PN ---
(1) Ulcer of left lower extremity with fat layer exposed Status: Acute Current Visit: No Code(s): L97.922 - Non-pressure chronic ulcer of unspecified part of left lower leg with fat layer exposed (2) PVD (peripheral vascular disease) Status: Acute Current Visit: No Code(s): I73.9 - Peripheral vascular disease, unspecified (3) Chronic venous insufficiency Status: Acute Current Visit: No Code(s): I87.2 - Venous insufficiency (chronic) (peripheral) (4) Edema, lower extremity Status: Acute Current Visit: No Code(s): R60.0 - Localized edema (5) Pain of left lower extremity Status: Acute Current Visit: No Code(s): M79.605 - Pain in left leg (6) Delayed wound healing Status: Acute Current Visit: No Code(s): T14.8XXD - Other injury of unspecified body region, subsequent encounter Type of Wound Chief Complaint: ulcers to the left lower leg/foot History of Wound: This is a 51-year-old white male presents to wound healing center with a long-standing history of chronic venous insufficiency, chronic venous hypertension, lower extremity edema, lower extremity pain, and 3 ulcer sites to left lower leg/foot. The patient has had multiple ulcerations in the lower extremities bilaterally, related to his chronic venous disease. He also has chronic venous stasis changes. The skin changes include hyperpigmentation. The patient has previously undergone endovenous laser ablation of the left and right great saphenous vein, the small saphenous vein, the left accessory saphenous vein, and an incompetent left calf air moving technician vein located 15 cm proximal to the left medial malleolus. He is currently wearing graduated compression stockings which are documented to be 20-30 mmHg compression, however, he says the ones he has on are about a year old. He has new ones at home that he has not been wearing. 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 Patient says that he noticed a small area start opening on the top of his left foot about 8-10 months ago. He says he tried to doctor this on his own with old wound care supplies. He says this continued to get slightly worse. Then, about 4 months ago, he noticed the area around the medial malleolus starting to break down, and that has slowly been getting worse too. He also has a small anterior lower leg ulcer. Nothing he has done on his own to treat these areas has helped. He decided he should finally come back to the wound healing center to see if he can get the areas to heal again. Progress of Wound: Ulcer to left medial ankle shows slight improvement since last week. Patient denies any feelings of nausea, vomiting, fever, chills at this time. - Physical Exam Vital Signs Temp Pulse Resp BP 98.0 F 91 16 146/92 H 10/17/18 08:58 10/17/18 08:58 10/17/18 08:58 10/17/18 08:58 General: Alert, Oriented x3, Cooperative, No apparent distress Extremities: Capillary Refill Less than 3 Seconds, No Calf Tenderness, Diminished Peripheral Pulses - Negative Lakisha and Hough sign DP pulses palpable and PT pulses nonpalpable, Edema - Slight lower extremity edema Skin: Ulcer/ Wound - Ulcer to left medial ankle and dorsal left foot with fat layer exposed. The bases of each ulcer site are noted to have adherent slough, fibrin, granular tissue, biofilm, as well as some slight surrounding hyperkeratotic tissue. There is no probing to bone, no tracking, no undermining, no surrounding or extending cellulitis, no purulence, no malodor, and no increase in warmth. Wound Measurements and Assessment WC - Nurse 1 - General Ulcer Measurement Start: 10/03/18 08:57 Freq: Status: Active Protocol: Activity Type Activity Date Activity User E-Sign Co-Sign Detail Recorded Client Recorded Date Recorded By Document 10/17/18 08:58 JS [id number] 10/17/18 09:05 LEVI 10/17/18 08:58 Wound Center Nurse 1 [Ulcer Assessment] #6 L Dorsal Cluster -Combined with other wound No -Current Size (cm) - Length 1.8 -Current Size (cm) - Width 1.5 -Current Size (cm) - Depth 0.2 -Total Square Cm 2.70 -Photo Taken No -Epithelialization Small 1-33% -Tunneling No -Undermining/Tunneling No #4 LEFT ANKLE -Combined with other wound No -Current Size (cm) - Length 8.0 -Current Size (cm) - Width 7.5 -Current Size (cm) - Depth 0.4 -Total Square Cm 60.00 -Photo Taken No -Tunneling No -Undermining/Tunneling No -Circular Undermining No -Classification - Thickness Full Thickness without Exposed Support Structure -Exudate Amt Medium (34-66%) -Exudate Type Serosanguineous -Wound Margin Distinct, Outline Attached -Granulation Amt Small (1-33%) -Granulation Quality Pale [address] -Slough/Fibrin Yes -Necrosis Amt Small (1-33%) -Necrotic Tissue Type Adherent Slough -Structure Exposed N/A -Texture (Ara-wound Skin Appearance) Induration -Moisture (Ara-wound Skin Appearance No Abnormality ) -Color (Ara-wound Skin Appearance) Hemosiderin Staining -Temperature (Ara-wound Skin No Abnormality Appearance) (Pt Warm) -Tenderness on Palpation (Ara-wound No Skin Appearance) -Ulcer Cleansing Rinsed/ Irrigated with Saline -Anesthetic Used 4% Lidocaine Solution [Edema Assessment] -Lower Limb Edema Present No -Left Calf (cm) 35.6 -Left Ankle (cm) 24.5 WC - Nurse 2 - General Ulcer CM Notes Start: 10/03/18 08:57 Freq: Status: Active Protocol: Activity Type Activity Date Activity User E-Sign Co-Sign Detail Recorded Client Recorded Date Recorded By Document 10/17/18 09:14 DV [id number] 10/17/18 09:22 DV 10/17/18 09:14 Wound Center Nurse 2 [Procedure/Treatment] #6 L Dorsal Cluster -Time 09:15 -Correct Patient Yes -Correct Side, Site, Position Yes -Correct Procedure Yes -Procedure Performed Yes -Type of Procedure Debridement -Clinical Debridement Subcutaneous -Post Debridement Size (cm) - Length 1.8 -Post Debridement Size (cm) - Width 0.9 -Post Debridement Size (cm) - Depth 0.2 -Total Square Cm 1.62 -Wound/Ulcer Outcome Not Healed -Ulcer Cleansing Rinsed/ Irrigated with Saline -Foul Odor after Cleansing No -Bioengineered Tissue No -Bleeding Controlled with Pressure -Offloading No -Treatment Response Procedure Tolerated Well #4 LEFT ANKLE -Time 09:16 -Correct Patient Yes -Correct Side, Site, Position Yes -Correct Procedure Yes -Procedure Performed No -Type of Procedure Debridement -Clinical Debridement Subcutaneous -Post Debridement Size (cm) - Length 7.5 -Post Debridement Size (cm) - Width 8.3 -Post Debridement Size (cm) - Depth 0.3 -Total Square Cm 62.25 -Wound/Ulcer Outcome Not Healed -Ulcer Cleansing Rinsed/ Irrigated with Saline -Foul Odor after Cleansing No -Bioengineered Tissue No -Bleeding Controlled with Pressure -Offloading No -Treatment Response Procedure Tolerated Well [See Physician Procedure note for Specifics] Pain Scale: 0-10 Numeric [Pain] -Is Patient Pain Free? Yes Musculoskeletal: No Tenderness to Palpation of Joints or Extremities, Tenderness - With manipulation of ulcer sites Neurological: Sensory exam intact to light touch and pain Psych/Mental Status: Normal Affect, Appropriate Debridement Note Post-Debridement Measurements/Treatment WC - Nurse 2 - General Ulcer CM Notes Start: 10/03/18 08:57 Freq: Status: Active Protocol: Activity Type Activity Date Activity User E-Sign Co-Sign Detail Recorded Client Recorded Date Recorded By Document 10/03/18 09:27 DV [id number] 10/03/18 09:53 DV Document 10/10/18 09:23 DV [id number] 10/10/18 09:40 DV Document 10/17/18 09:14 DV [id number] 10/17/18 09:22 DV 10/03/18 10/10/18 10/17/18 09:27 09:23 09:14 Wound Center Nurse 2 #6 L Dorsal Cluster -Time 09:24 09:15 -Correct Patient Yes Yes -Correct Side, Site, Position Yes Yes -Correct Procedure Yes Yes -Procedure Performed Yes Yes -Type of Procedure Debridement Debridement -Clinical Debridement Subcutaneous Subcutaneous -Post Debridement Size (cm) - Length 2.1 1.8 -Post Debridement Size (cm) - Width 1.1 0.9 -Post Debridement Size (cm) - Depth 0.2 0.2 -Total Square Cm 2.31 1.62 -Wound/Ulcer Outcome Not Healed Not Healed -Ulcer Cleansing Rinsed/ Rinsed/ Irrigated with Irrigated with Saline Saline -Foul Odor after Cleansing No No -Bioengineered Tissue No No -Bleeding Controlled with Pressure Pressure -Offloading No No -Treatment Response Procedure Procedure Tolerated Well Tolerated Well #4 LEFT ANKLE -Time 09:27 09:25 09:16 -Correct Patient Yes Yes Yes -Correct Side, Site, Position Yes Yes Yes -Correct Procedure Yes Yes Yes -Procedure Performed Yes Yes No -Type of Procedure Debridement Debridement Debridement -Clinical Debridement Subcutaneous Subcutaneous Subcutaneous -Post Debridement Size (cm) - Length 6.4 7.0 7.5 -Post Debridement Size (cm) - Width 7.5 7.9 8.3 -Post Debridement Size (cm) - Depth 0.3 0.3 0.3 -Total Square Cm 48.00 55.30 62.25 -Wound/Ulcer Outcome Not Healed Not Healed Not Healed -Ulcer Cleansing Rinsed/ Rinsed/ Irrigated with Irrigated with Saline Saline -Foul Odor after Cleansing No No No -Bioengineered Tissue Yes No No -Type of bioengineered Tissue EPIFIX -Expiration Date 05/29/23 -Product Lot Number [id number] -Percent Used 100 -Saline Lot Number NA -Topical Lidocaine (%) 4 -Bleeding Controlled with Pressure Pressure Pressure -Offloading No No -Treatment Response Procedure Procedure Procedure Tolerated Well Tolerated Well Tolerated Well Pain Scale: 0-10 Numeric Is Patient Pain Free? Yes Yes Yes Wound debrided: Left medial ankle Laterality: Left Type of Debridement: Excisional debridement Anesthesia Used: 4% Lidocaine Solution Depth: in the subcutaneous layer Percentage of wound debrided: 100 Instrument Used: 7mm curette, #15 blade, Forceps Tissue Removed: Adherent slough, fibrin, biofilm, hyperkeratotic tissue Severity: Fat Layer Exposed Amount of bleeding with debridement: Mild Bleeding Controlled with: Pressure Patient tolerated procedure well Assessment/Plan Clinical Impression(s) from Imaging Studies Ankle X-Ray 10/10/18 09:58 IMPRESSION: Skin ulceration noted medial to the medial malleolus but no associated osseous lesion or involvement Electronically Signed: Arnulfo Wilson MD at 10:21 EST , Service support , Foot X-Ray 10/10/18 09:58 IMPRESSION: Normal x-ray examination of the foot. Electronically Signed: Arnulfo Wilson MD at 10:20 EST , Service support , Assessment: Right medial ankle ulcer resolved. Peripheral vascular occlusive disease. Nonhealing ulcers resolved. Edema Plan: Patient was carefully examined and evaluated again today. Subcutaneous debridement was performed to the aforementioned ulcer sites as noted in the clinical panel again this week. Once complete, the ulcer sites were carefully cleansed and then dressed with Elvira to the bases followed by dry sterile dressing and Tubigrip for compression. Due to the ulcer slightly getting larger in size, new cultures were taken last week and the patient was placed back on Levaquin and Flagyl and has been doing well with these and having no side effects. Three-view x-rays of the left foot and ankle were also ordered last week and they did not demonstrate any acute osseous abnormalities according to the report. Full report is in patient's chart. The importance of offloading the ulcer sites was discussed at length with this patient again today. He says he is unable to completely stop working, but he does have the option for light duty. He is to continue with this. I stressed the importance of keeping pressure off of all of the ulcer sites and how this will impact his healing potential. Patient was instructed to be off his feet as much as possible and to keep the lower extremities elevated while not at work. The importance of compression was also discussed with this patient today. LEAS studies were reviewed at a previous patient visit and the results are in the patient's chart. I continue to recommend nutritional supplementation with a high-protein diet at this time in order to help optimize ulcer healing potential. Smoking cessation was stressed again today. All signs and symptoms of local and systemic infection were discussed in great detail with the patient today and he was instructed to go to the emergency room immediately should he notice any of these. All questions were answered to the patient's satisfaction. Patient will follow-up in clinic in 1 week to check on progress, or sooner if needed.
--- NOTE | 2018-10-17 09:30 | PN.PCM_ITS ---
(1) Ulcer of left lower extremity with fat layer exposed Status: Acute Current Visit: No Code(s): L97.922 - Non-pressure chronic ulcer of unspecified part of left lower leg with fat layer exposed (2) PVD (peripheral vascular disease) Status: Acute Current Visit: No Code(s): I73.9 - Peripheral vascular disease, unspecified (3) Chronic venous insufficiency Status: Acute Current Visit: No Code(s): I87.2 - Venous insufficiency (chronic) (peripheral) (4) Edema, lower extremity Status: Acute Current Visit: No Code(s): R60.0 - Localized edema (5) Pain of left lower extremity Status: Acute Current Visit: No Code(s): M79.605 - Pain in left leg (6) Delayed wound healing Status: Acute Current Visit: No Code(s): T14.8XXD - Other injury of unspecified body region, subsequent encounter Type of Wound Chief Complaint: ulcers to the left lower leg/foot History of Wound: This is a 51-year-old white male presents to wound healing center with a long-standing history of chronic venous insufficiency, chronic venous hypertension, lower extremity edema, lower extremity pain, and 3 ulcer sites to left lower leg/foot. The patient has had multiple ulcerations in the lower extremities bilaterally, related to his chronic venous disease. He also has chronic venous stasis changes. The skin changes include hyperpigmentation. 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 He is currently wearing graduated compression stockings which are documented to be 20-30 mmHg compression, however, he says the ones he has on are about a year old. He has new ones at home that he has not been wearing. 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 Patient says that he noticed a small area start opening on the top of his left foot about 8-10 months ago. He says he tried to doctor this on his own with old wound care supplies. He says this continued to get slightly worse. Then, about 4 months ago, he noticed the area around the medial malleolus starting to break down, and that has slowly been getting worse too. He also has a small anterior lower leg ulcer. Nothing he has done on his own to treat these areas has helped. He decided he should finally come back to the wound healing center to see if he can get the areas to heal again. Progress of Wound: Ulcer to left medial ankle shows slight improvement since last week. Patient denies any feelings of nausea, vomiting, fever, chills at this time. - Physical Exam Vital Signs Temp Pulse Resp BP 98.0 F 91 16 146/92 H 10/17/18 08:58 10/17/18 08:58 10/17/18 08:58 10/17/18 08:58 General: Alert, Oriented x3, Cooperative, No apparent distress Extremities: Capillary Refill Less than 3 Seconds, No Calf Tenderness, Diminished Peripheral Pulses - Negative Lakisha and Hough sign DP pulses palpable and PT pulses nonpalpable, Edema - Slight lower extremity edema Skin: Ulcer/ Wound - Ulcer to left medial ankle and dorsal left foot with fat layer exposed. The bases of each ulcer site are noted to have adherent slough, fibrin, granular tissue, biofilm, as well as some slight surrounding hyperkeratotic tissue. There is no probing to bone, no tracking, no undermining, no surrounding or extending cellulitis, no purulence, no malodor, and no increase in warmth. Wound Measurements and Assessment WC - Nurse 1 - General Ulcer Measurement Start: 10/03/18 08:57 Freq: Status: Active Protocol: Activity Type Activity Date Activity User E-Sign Co-Sign Detail Recorded Client Recorded Date Recorded By Document 10/17/18 08:58 JS [id number] 10/17/18 09:05 LEVI 10/17/18 08:58 Wound Center Nurse 1 [Ulcer Assessment] #6 L Dorsal Cluster -Combined with other wound No -Current Size (cm) - Length 1.8 -Current Size (cm) - Width 1.5 -Current Size (cm) - Depth 0.2 -Total Square Cm 2.70 -Photo Taken No -Epithelialization Small 1-33% -Tunneling No -Undermining/Tunneling No #4 LEFT ANKLE -Combined with other wound No -Current Size (cm) - Length 8.0 -Current Size (cm) - Width 7.5 -Current Size (cm) - Depth 0.4 -Total Square Cm 60.00 -Photo Taken No -Tunneling No -Undermining/Tunneling No -Circular Undermining No -Classification - Thickness Full Thickness without Exposed Support Structure -Exudate Amt Medium (34-66%) -Exudate Type Serosanguineous -Wound Margin Distinct, Outline Attached -Granulation Amt Small (1-33%) -Granulation Quality Pale Bray -Slough/Fibrin Yes -Necrosis Amt Small (1-33%) -Necrotic Tissue Type Adherent Slough -Structure Exposed N/A -Texture (Ara-wound Skin Appearance) Induration -Moisture (Ara-wound Skin Appearance No Abnormality ) -Color (Ara-wound Skin Appearance) Hemosiderin Staining -Temperature (Ara-wound Skin No Abnormality Appearance) (Pt Warm) -Tenderness on Palpation (Ara-wound No Skin Appearance) -Ulcer Cleansing Rinsed/ Irrigated with Saline -Anesthetic Used 4% Lidocaine Solution [Edema Assessment] -Lower Limb Edema Present No -Left Calf (cm) 35.6 -Left Ankle (cm) 24.5 WC - Nurse 2 - General Ulcer CM Notes Start: 10/03/18 08:57 Freq: Status: Active Protocol: Activity Type Activity Date Activity User E-Sign Co-Sign Detail Recorded Client Recorded Date Recorded By Document 10/17/18 09:14 DV [id number] 10/17/18 09:22 DV 10/17/18 09:14 Wound Center Nurse 2 [Procedure/Treatment] #6 L Dorsal Cluster -Time 09:15 -Correct Patient Yes -Correct Side, Site, Position Yes -Correct Procedure Yes -Procedure Performed Yes -Type of Procedure Debridement -Clinical Debridement Subcutaneous -Post Debridement Size (cm) - Length 1.8 -Post Debridement Size (cm) - Width 0.9 -Post Debridement Size (cm) - Depth 0.2 -Total Square Cm 1.62 -Wound/Ulcer Outcome Not Healed -Ulcer Cleansing Rinsed/ Irrigated with Saline -Foul Odor after Cleansing No -Bioengineered Tissue No -Bleeding Controlled with Pressure -Offloading No -Treatment Response Procedure Tolerated Well #4 LEFT ANKLE -Time 09:16 -Correct Patient Yes -Correct Side, Site, Position Yes -Correct Procedure Yes -Procedure Performed No -Type of Procedure Debridement -Clinical Debridement Subcutaneous -Post Debridement Size (cm) - Length 7.5 -Post Debridement Size (cm) - Width 8.3 -Post Debridement Size (cm) - Depth 0.3 -Total Square Cm 62.25 -Wound/Ulcer Outcome Not Healed -Ulcer Cleansing Rinsed/ Irrigated with Saline -Foul Odor after Cleansing No -Bioengineered Tissue No -Bleeding Controlled with Pressure -Offloading No -Treatment Response Procedure Tolerated Well [See Physician Procedure note for Specifics] Pain Scale: 0-10 Numeric [Pain] -Is Patient Pain Free? Yes Musculoskeletal: No Tenderness to Palpation of Joints or Extremities, Tenderness - With manipulation of ulcer sites Neurological: Sensory exam intact to light touch and pain Psych/Mental Status: Normal Affect, Appropriate Debridement Note Post-Debridement Measurements/Treatment WC - Nurse 2 - General Ulcer CM Notes Start: 10/03/18 08:57 Freq: Status: Active Protocol: Activity Type Activity Date Activity User E-Sign Co-Sign Detail Recorded Client Recorded Date Recorded By Document 10/03/18 09:27 DV [id number] 10/03/18 09:53 DV Document 10/10/18 09:23 DV [id number] 10/10/18 09:40 DV Document 10/17/18 09:14 DV [id number] 10/17/18 09:22 DV 10/03/18 10/10/18 10/17/18 09:27 09:23 09:14 Wound Center Nurse 2 #6 L Dorsal Cluster -Time 09:24 09:15 -Correct Patient Yes Yes -Correct Side, Site, Position Yes Yes -Correct Procedure Yes Yes -Procedure Performed Yes Yes -Type of Procedure Debridement Debridement -Clinical Debridement Subcutaneous Subcutaneous -Post Debridement Size (cm) - Length 2.1 1.8 -Post Debridement Size (cm) - Width 1.1 0.9 -Post Debridement Size (cm) - Depth 0.2 0.2 -Total Square Cm 2.31 1.62 -Wound/Ulcer Outcome Not Healed Not Healed -Ulcer Cleansing Rinsed/ Rinsed/ Irrigated with Irrigated with Saline Saline -Foul Odor after Cleansing No No -Bioengineered Tissue No No -Bleeding Controlled with Pressure Pressure -Offloading No No -Treatment Response Procedure Procedure Tolerated Well Tolerated Well #4 LEFT ANKLE -Time 09:27 09:25 09:16 -Correct Patient Yes Yes Yes -Correct Side, Site, Position Yes Yes Yes -Correct Procedure Yes Yes Yes -Procedure Performed Yes Yes No -Type of Procedure Debridement Debridement Debridement -Clinical Debridement Subcutaneous Subcutaneous Subcutaneous -Post Debridement Size (cm) - Length 6.4 7.0 7.5 -Post Debridement Size (cm) - Width 7.5 7.9 8.3 -Post Debridement Size (cm) - Depth 0.3 0.3 0.3 -Total Square Cm 48.00 55.30 62.25 -Wound/Ulcer Outcome Not Healed Not Healed Not Healed -Ulcer Cleansing Rinsed/ Rinsed/ Irrigated with Irrigated with Saline Saline -Foul Odor after Cleansing No No No -Bioengineered Tissue Yes No No -Type of bioengineered Tissue EPIFIX -Expiration Date 05/29/23 -Product Lot Number [id number] -Percent Used 100 -Saline Lot Number NA -Topical Lidocaine (%) 4 -Bleeding Controlled with Pressure Pressure Pressure -Offloading No No -Treatment Response Procedure Procedure Procedure Tolerated Well Tolerated Well Tolerated Well Pain Scale: 0-10 Numeric Is Patient Pain Free? Yes Yes Yes Wound debrided: Left medial ankle Laterality: Left Type of Debridement: Excisional debridement Anesthesia Used: 4% Lidocaine Solution Depth: in the subcutaneous layer Percentage of wound debrided: 100 Instrument Used: 7mm curette, #15 blade, Forceps Tissue Removed: Adherent slough, fibrin, biofilm, hyperkeratotic tissue Severity: Fat Layer Exposed Amount of bleeding with debridement: Mild Bleeding Controlled with: Pressure Patient tolerated procedure well Assessment/Plan Clinical Impression(s) from Imaging Studies Ankle X-Ray 10/10/18 09:58 IMPRESSION: Skin ulceration noted medial to the medial malleolus but no associated osseous lesion or involvement Electronically Signed: Arnulfo Wilson MD at 10:21 EST , Service support , Foot X-Ray 10/10/18 09:58 IMPRESSION: Normal x-ray examination of the foot. Electronically Signed: Arnulfo Wilson MD at 10:20 EST , Service support , Assessment: Right medial ankle ulcer resolved. Peripheral vascular occlusive disease. Nonhealing ulcers resolved. Edema Plan: Patient was carefully examined and evaluated again today. Subcutaneous debridement was performed to the aforementioned ulcer sites as noted in the clinical panel again this week. Once complete, the ulcer sites were carefully cleansed and then dressed with Elvira to the bases followed by dry sterile dressing and Tubigrip for compression. Due to the ulcer slightly getting larger in size, new cultures were taken last week and the patient was placed back on Levaquin and Flagyl and has been doing well with these and having no side effects. Three-view x-rays of the left foot and ankle were also ordered last week and they did not demonstrate any acute osseous abnormalities according to the report. Full report is in patient's chart. The importance of offloading the ulcer sites was discussed at length with this patient again today. He says he is unable to completely stop working, but he does have the option for light duty. He is to continue with this. I stressed the importance of keeping pressure off of all of the ulcer sites and how this will impact his healing potential. Patient was instructed to be off his feet as much as possible and to keep the lower extremities elevated while not at work. The importance of compression was also discussed with this patient today. LEAS studies were reviewed at a previous patient visit and the results are in the patient's chart. I continue to recommend nutritional supplementation with a high-protein diet at this time in order to help optimize ulcer healing potential. Smoking cessation was stressed again today. All signs and symptoms of local and systemic infection were discussed in great detail with the patient today and he was instructed to go to the emergency room immediately should he notice any of these. All questions were answered to the patient's satisfaction. Patient will follow-up in clinic in 1 week to check on progress, or sooner if needed.
[2018-10-24 09:03] VITALS: BP 147/85; PULSE 90; RESP 16; TEMP 36.2; BMI 31.4
--- NOTE | 2018-10-24 10:21 | PCM.WC.PN ---
(1) Ulcer of left lower extremity with fat layer exposed Status: Acute Current Visit: No Code(s): L97.922 - Non-pressure chronic ulcer of unspecified part of left lower leg with fat layer exposed (2) PVD (peripheral vascular disease) Status: Acute Current Visit: No Code(s): I73.9 - Peripheral vascular disease, unspecified (3) Chronic venous insufficiency Status: Acute Current Visit: No Code(s): I87.2 - Venous insufficiency (chronic) (peripheral) (4) Edema, lower extremity Status: Acute Current Visit: No Code(s): R60.0 - Localized edema (5) Pain of left lower extremity Status: Acute Current Visit: No Code(s): M79.605 - Pain in left leg (6) Delayed wound healing Status: Acute Current Visit: No Code(s): T14.8XXD - Other injury of unspecified body region, subsequent encounter Type of Wound Chief Complaint: ulcers to the left lower leg/foot History of Wound: This is a 51-year-old white male presents to wound healing center with a long-standing history of chronic venous insufficiency, chronic venous hypertension, lower extremity edema, lower extremity pain, and 3 ulcer sites to left lower leg/foot. The patient has had multiple ulcerations in the lower extremities bilaterally, related to his chronic venous disease. He also has chronic venous stasis changes. The skin changes include hyperpigmentation. The patient has previously undergone endovenous laser ablation of the left and right great saphenous vein, the small saphenous vein, the left accessory saphenous vein, and an incompetent left calf jewelry bearing maker vein located 15 cm proximal to the left medial malleolus. He is currently wearing graduated compression stockings which are documented to be 20-30 mmHg compression, however, he says the ones he has on are about a year old. He has new ones at home that he has not been wearing. 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 Patient says that he noticed a small area start opening on the top of his left foot about 8-10 months ago. He says he tried to doctor this on his own with old wound care supplies. He says this continued to get slightly worse. Then, about 4 months ago, he noticed the area around the medial malleolus starting to break down, and that has slowly been getting worse too. He also has a small anterior lower leg ulcer. Nothing he has done on his own to treat these areas has helped. He decided he should finally come back to the wound healing center to see if he can get the areas to heal again. Progress of Wound: Ulcer to left medial ankle shows slight improvement since last week. Dorsal medial foot ulcer improving as well. Patient denies any feelings of nausea, vomiting, fever, chills at this time. - Physical Exam Vital Signs Temp Pulse Resp BP 97.1 F L 90 16 147/85 H 10/24/18 09:03 10/24/18 09:03 10/24/18 09:03 10/24/18 09:03 General: Alert, Oriented x3, Cooperative, No apparent distress Extremities: Capillary Refill Less than 3 Seconds, No Calf Tenderness, Diminished Peripheral Pulses - Negative Lakisha and Hough sign DP pulses palpable and PT pulses nonpalpable, Edema - Slight lower extremity edema Skin: Ulcer/ Wound - Ulcer to left medial ankle and dorsal left foot with fat layer exposed. The bases of each ulcer site have shown slight improvement again this week. The bases of each ulcer site have adherent slough, fibrin, granular tissue, biofilm, as well as some surrounding hyperkeratotic tissue. There continues to be no probing to bone, no tracking, no undermining, no surrounding or extending cellulitis, no purulence, no malodor, no increase in warmth. Wound Measurements and Assessment WC - Nurse 1 - General Ulcer Measurement Start: 10/03/18 08:57 Freq: Status: Active Protocol: Activity Type Activity Date Activity User E-Sign Co-Sign Detail Recorded Client Recorded Date Recorded By Document 10/24/18 09:03 CS [id number] 10/24/18 09:05 CS 10/24/18 09:03 Wound Center Nurse 1 [Ulcer Assessment] #6 L Dorsal Cluster -Combined with other wound No -Current Size (cm) - Length 1.3 -Current Size (cm) - Width 1 -Current Size (cm) - Depth 0.1 -Total Square Cm 1.3 -Photo Taken No -Epithelialization Small 1-33% -Tunneling No -Undermining/Tunneling No -Circular Undermining No -Exudate Amt None Present (0 %) -Wound Margin Distinct, Outline Attached -Granulation Amt Large (67-100%) -Granulation Quality Red -Slough/Fibrin Yes -Necrosis Amt Medium (34-66%) -Necrotic Tissue Type Adherent Slough -Structure Exposed None/Limited to Skin Breakdown -Moisture (Ara-wound Skin Appearance Dry/Scaly ) -Color (Ara-wound Skin Appearance) No Abnormality Assessed -Temperature (Ara-wound Skin No Abnormality Appearance) (Pt Warm) -Tenderness on Palpation (Ara-wound No Skin Appearance) -Ulcer Cleansing Wound Cleanser -Foul Odor after Cleansing No -Anesthetic Used 4% Lidocaine Solution #4 LEFT ANKLE -Combined with other wound No -Current Size (cm) - Length 6.5 -Current Size (cm) - Width 7.4 -Current Size (cm) - Depth 0.3 -Total Square Cm 48.10 -Photo Taken No -Epithelialization None Present -Tunneling No -Undermining/Tunneling No -Circular Undermining No -Exudate Amt Medium (34-66%) -Exudate Type Serosanguineous -Wound Margin Distinct, Outline Attached -Granulation Amt Medium (34-66%) -Granulation Quality Pale [place] -Slough/Fibrin Yes -Necrosis Amt Medium (34-66%) -Necrotic Tissue Type Adherent Slough -Texture (Ara-wound Skin Appearance) Scarring -Moisture (Ara-wound Skin Appearance Dry/Scaly ) -Color (Ara-wound Skin Appearance) Hemosiderin Staining -Temperature (Ara-wound Skin No Abnormality Appearance) (Pt Warm) -Tenderness on Palpation (Ara-wound No Skin Appearance) -Ulcer Cleansing Wound Cleanser -Foul Odor after Cleansing No -Anesthetic Used 4% Lidocaine Solution [Edema Assessment] -Lower Limb Edema Present NA WC - Nurse 2 - General Ulcer CM Notes Start: 10/03/18 08:57 Freq: Status: Active Protocol: Activity Type Activity Date Activity User E-Sign Co-Sign Detail Recorded Client Recorded Date Recorded By Document 10/24/18 09:24 DV [id number] 10/24/18 09:27 DV 10/24/18 09:24 Wound Center Nurse 2 [Procedure/Treatment] #6 L Dorsal Cluster -Time 09:24 -Correct Patient Yes -Correct Side, Site, Position Yes -Correct Procedure Yes -Procedure Performed Yes -Type of Procedure Debridement -Clinical Debridement Subcutaneous -Post Debridement Size (cm) - Length 1.5 -Post Debridement Size (cm) - Width 0.5 -Post Debridement Size (cm) - Depth 0.2 -Total Square Cm 0.75 -Wound/Ulcer Outcome Not Healed -Ulcer Cleansing Rinsed/ Irrigated with Saline -Foul Odor after Cleansing No -Bioengineered Tissue No -Bleeding Controlled with Pressure -Offloading No -Treatment Response Procedure Tolerated Well #4 LEFT ANKLE -Time 09:25 -Correct Patient Yes -Correct Side, Site, Position Yes -Correct Procedure Yes -Procedure Performed Yes -Type of Procedure Debridement -Clinical Debridement Subcutaneous -Post Debridement Size (cm) - Length 7.3 -Post Debridement Size (cm) - Width 8.3 -Post Debridement Size (cm) - Depth 0.3 -Total Square Cm 60.59 -Wound/Ulcer Outcome Not Healed -Ulcer Cleansing Rinsed/ Irrigated with Saline -Foul Odor after Cleansing No -Bioengineered Tissue No -Bleeding Controlled with Pressure -Offloading No -Treatment Response Procedure Tolerated Well [See Physician Procedure note for Specifics] Pain Scale: 0-10 Numeric [Pain] -Is Patient Pain Free? Yes Musculoskeletal: No Tenderness to Palpation of Joints or Extremities, Tenderness - With manipulation of ulcer sites Neurological: Sensory exam intact to light touch and pain Psych/Mental Status: Normal Affect, Appropriate Debridement Note Post-Debridement Measurements/Treatment WC - Nurse 2 - General Ulcer CM Notes Start: 10/03/18 08:57 Freq: Status: Active Protocol: Activity Type Activity Date Activity User E-Sign Co-Sign Detail Recorded Client Recorded Date Recorded By Document 10/03/18 09:27 DV [id number] 10/03/18 09:53 DV Document 10/10/18 09:23 DV [id number] 10/10/18 09:40 DV Document 10/17/18 09:14 DV [id number] 10/17/18 09:22 DV Document 10/24/18 09:24 DV [id number] 10/24/18 09:27 DV 10/03/18 10/10/18 10/17/18 09:27 09:23 09:14 Wound Center Nurse 2 #6 L Dorsal Cluster -Time 09:24 09:15 -Correct Patient Yes Yes -Correct Side, Site, Position Yes Yes -Correct Procedure Yes Yes -Procedure Performed Yes Yes -Type of Procedure Debridement Debridement -Clinical Debridement Subcutaneous Subcutaneous -Post Debridement Size (cm) - Length 2.1 1.8 -Post Debridement Size (cm) - Width 1.1 0.9 -Post Debridement Size (cm) - Depth 0.2 0.2 -Total Square Cm 2.31 1.62 -Wound/Ulcer Outcome Not Healed Not Healed -Ulcer Cleansing Rinsed/ Rinsed/ Irrigated with Irrigated with Saline Saline -Foul Odor after Cleansing No No -Bioengineered Tissue No No -Bleeding Controlled with Pressure Pressure -Offloading No No -Treatment Response Procedure Procedure Tolerated Well Tolerated Well #4 LEFT ANKLE -Time 09:27 09:25 09:16 -Correct Patient Yes Yes Yes -Correct Side, Site, Position Yes Yes Yes -Correct Procedure Yes Yes Yes -Procedure Performed Yes Yes No -Type of Procedure Debridement Debridement Debridement -Clinical Debridement Subcutaneous Subcutaneous Subcutaneous -Post Debridement Size (cm) - Length 6.4 7.0 7.5 -Post Debridement Size (cm) - Width 7.5 7.9 8.3 -Post Debridement Size (cm) - Depth 0.3 0.3 0.3 -Total Square Cm 48.00 55.30 62.25 -Wound/Ulcer Outcome Not Healed Not Healed Not Healed -Ulcer Cleansing Rinsed/ Rinsed/ Irrigated with Irrigated with Saline Saline -Foul Odor after Cleansing No No No -Bioengineered Tissue Yes No No -Type of bioengineered Tissue EPIFIX -Expiration Date 05/29/23 -Product Lot Number [id number] -Percent Used 100 -Saline Lot Number NA -Topical Lidocaine (%) 4 -Bleeding Controlled with Pressure Pressure Pressure -Offloading No No -Treatment Response Procedure Procedure Procedure Tolerated Well Tolerated Well Tolerated Well Pain Scale: 0-10 Numeric Is Patient Pain Free? Yes Yes Yes 10/24/18 09:24 Wound Center Nurse 2 #6 L Dorsal Cluster -Time 09:24 -Correct Patient Yes -Correct Side, Site, Position Yes -Correct Procedure Yes -Procedure Performed Yes -Type of Procedure Debridement -Clinical Debridement Subcutaneous -Post Debridement Size (cm) - Length 1.5 -Post Debridement Size (cm) - Width 0.5 -Post Debridement Size (cm) - Depth 0.2 -Total Square Cm 0.75 -Wound/Ulcer Outcome Not Healed -Ulcer Cleansing Rinsed/ Irrigated with Saline -Foul Odor after Cleansing No -Bioengineered Tissue No -Bleeding Controlled with Pressure -Offloading No -Treatment Response Procedure Tolerated Well #4 LEFT ANKLE -Time 09:25 -Correct Patient Yes -Correct Side, Site, Position Yes -Correct Procedure Yes -Procedure Performed Yes -Type of Procedure Debridement -Clinical Debridement Subcutaneous -Post Debridement Size (cm) - Length 7.3 -Post Debridement Size (cm) - Width 8.3 -Post Debridement Size (cm) - Depth 0.3 -Total Square Cm 60.59 -Wound/Ulcer Outcome Not Healed -Ulcer Cleansing Rinsed/ Irrigated with Saline -Foul Odor after Cleansing No -Bioengineered Tissue No -Type of bioengineered Tissue -Expiration Date -Product Lot Number -Percent Used -Saline Lot Number -Topical Lidocaine (%) -Bleeding Controlled with Pressure -Offloading No -Treatment Response Procedure Tolerated Well Pain Scale: 0-10 Numeric Is Patient Pain Free? Yes Wound debrided: Left medial ankle Laterality: Left Type of Debridement: Excisional debridement Anesthesia Used: 4% Lidocaine Solution Depth: in the subcutaneous layer Percentage of wound debrided: 100 Instrument Used: 7mm curette Tissue Removed: Adherent slough, fibrin, biofilm, hyperkeratotic tissue Severity: Fat Layer Exposed Amount of bleeding with debridement: Mild Bleeding Controlled with: Pressure Patient tolerated procedure well - Additional Wound Wound debrided: Left dorsal medial foot Laterality: Left Type of Debridement: Excisional debridement Anesthesia Used: 4% Lidocaine Solution Depth: in the subcutaneous layer Percentage of wound debrided: 100 Instrument Used: 7mm curette Tissue Removed: Adherent slough, fibrin, biofilm, hyperkeratotic tissue Severity: Fat Layer Exposed Amount of bleeding with debridement: Mild Bleeding Controlled with: Pressure Patient tolerated procedure: Patient tolerated procedure well Assessment/Plan Clinical Impression(s) from Imaging Studies Ankle X-Ray 10/10/18 09:58 IMPRESSION: Skin ulceration noted medial to the medial malleolus but no associated osseous lesion or involvement Electronically Signed: Arnulfo Wilson MD at 10:21 EST , Service support , Foot X-Ray 10/10/18 09:58 IMPRESSION: Normal x-ray examination of the foot. Electronically Signed: Arnulfo Wilson MD at 10:20 EST , Service support , Assessment: Right medial ankle ulcer resolved. Peripheral vascular occlusive disease. Nonhealing ulcers resolved. Edema Plan: Patient was carefully examined and evaluated again today. Subcutaneous debridement was performed to the aforementioned ulcer sites as noted in the clinical panel again this week. Once complete, the ulcer sites were carefully cleansed and then dressed with Elvira to the bases followed by dry sterile dressing and Tubigrip for compression. Patient has a couple of days left of Levaquin and Flagyl and has been doing well with these and having no side effects. Three-view x-rays of the left foot and ankle were also ordered last week and they did not demonstrate any acute osseous abnormalities according to the report. Full report is in patient's chart. The importance of offloading the ulcer sites was discussed at length with this patient again today. He says he is unable to completely stop working, but he does have the option for light duty. He is to continue with this. I stressed the importance of keeping pressure off of all of the ulcer sites and how this will impact his healing potential. Patient was instructed to be off his feet as much as possible and to keep the lower extremities elevated while not at work. The importance of compression was also discussed with this patient today. LEAS studies were reviewed at a previous patient visit and the results are in the patient's chart. I continue to recommend nutritional supplementation with a high-protein diet at this time in order to help optimize ulcer healing potential. Smoking cessation was stressed again today. All signs and symptoms of local and systemic infection were discussed in great detail with the patient today and he was instructed to go to the emergency room immediately should he notice any of these. All questions were answered to the patient's satisfaction. Patient will follow-up in clinic in 1 week to check on progress, or sooner if needed.
--- NOTE | 2018-10-24 10:25 | PN.PCM_ITS ---
(1) Ulcer of left lower extremity with fat layer exposed Status: Acute Current Visit: No Code(s): L97.922 - Non-pressure chronic ulcer of unspecified part of left lower leg with fat layer exposed (2) PVD (peripheral vascular disease) Status: Acute Current Visit: No Code(s): I73.9 - Peripheral vascular disease, unspecified (3) Chronic venous insufficiency Status: Acute Current Visit: No Code(s): I87.2 - Venous insufficiency (chronic) (peripheral) (4) Edema, lower extremity Status: Acute Current Visit: No Code(s): R60.0 - Localized edema (5) Pain of left lower extremity Status: Acute Current Visit: No Code(s): M79.605 - Pain in left leg (6) Delayed wound healing Status: Acute Current Visit: No Code(s): T14.8XXD - Other injury of unspecified body region, subsequent encounter Type of Wound Chief Complaint: ulcers to the left lower leg/foot History of Wound: This is a 51-year-old white male presents to wound healing center with a long-standing history of chronic venous insufficiency, chronic venous hypertension, lower extremity edema, lower extremity pain, and 3 ulcer sites to left lower leg/foot. The patient has had multiple ulcerations in the lower extremities bilaterally, related to his chronic venous disease. He also has chronic venous stasis changes. The skin changes include hyperpigmentation. The patient has previously undergone endovenous laser ablation of the left and right great saphenous vein, the small saphenous vein, the left accessory saphenous vein, and an incompetent left calf linotype operator vein located 15 cm p roximal to the left medial malleolus. He is currently wearing graduated compression stockings which are documented to be 20-30 mmHg compression, however, he says the ones he has on are about a year old. He has new ones at home that he has not been wearing. 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 Patient says that he noticed a small area start opening on the top of his left foot about 8-10 months ago. He says he tried to doctor this on his own with old wound care supplies. He says this continued to get slightly worse. Then, about 4 months ago, he noticed the area around the medial malleolus starting to break down, and that has slowly been getting worse too. He also has a small anterior lower leg ulcer. Nothing he has done on his own to treat these areas has helped. He decided he should finally come back to the wound healing center to see if he can get the areas to heal again. Progress of Wound: Ulcer to left medial ankle shows slight improvement since last week. Dorsal medial foot ulcer improving as well. Patient denies any feelings of nausea, vomiting, fever, chills at this time. - Physical Exam Vital Signs Temp Pulse Resp BP 97.1 F L 90 16 147/85 H 10/24/18 09:03 10/24/18 09:03 10/24/18 09:03 10/24/18 09:03 General: Alert, Oriented x3, Cooperative, No apparent distress Extremities: Capillary Refill Less than 3 Seconds, No Calf Tenderness, Diminished Peripheral Pulses - Negative Lakisha and Hough sign DP pulses palpable and PT pulses nonpalpable, Edema - Slight lower extremity edema Skin: Ulcer/ Wound - Ulcer to left medial ankle and dorsal left foot with fat layer exposed. The bases of each ulcer site have shown slight improvement again this week. The bases of each ulcer site have adherent slough, fibrin, granular tissue, biofilm, as well as some surrounding hyperkeratotic tissue. There continues to be no probing to bone, no tracking, no undermining, no surrounding or extending cellulitis, no purulence, no malodor, no increase in warmth. Wound Measurements and Assessment WC - Nurse 1 - General Ulcer Measurement Start: 10/03/18 08:57 Freq: Status: Active Protocol: Activity Type Activity Date Activity User E-Sign Co-Sign Detail Recorded Client Recorded Date Recorded By Document 10/24/18 09:03 CS [id number] 10/24/18 09:05 CS 10/24/18 09:03 Wound Center Nurse 1 [Ulcer Assessment] #6 L Dorsal Cluster -Combined with other wound No -Current Size (cm) - Length 1.3 -Current Size (cm) - Width 1 -Current Size (cm) - Depth 0.1 -Total Square Cm 1.3 -Photo Taken No -Epithelialization Small 1-33% -Tunneling No -Undermining/Tunneling No -Circular Undermining No -Exudate Amt None Present (0 %) -Wound Margin Distinct, Outline Attached -Granulation Amt Large (67-100%) -Granulation Quality Red -Slough/Fibrin Yes -Necrosis Amt Medium (34-66%) -Necrotic Tissue Type Adherent Slough -Structure Exposed None/Limited to Skin Breakdown -Moisture (Ara-wound Skin Appearance Dry/Scaly ) -Color (Aar-wound Skin Appearance) No Abnormality Assessed -Temperature (Ara-wound Skin No Abnormality Appearance) (Pt Warm) -Tenderness on Palpation (Ara-wound No Skin Appearance) -Ulcer Cleansing Wound Cleanser -Foul Odor after Cleansing No -Anesthetic Used 4% Lidocaine Solution #4 LEFT ANKLE -Combined with other wound No -Current Size (cm) - Length 6.5 -Current Size (cm) - Width 7.4 -Current Size (cm) - Depth 0.3 -Total Square Cm 48.10 -Photo Taken No -Epithelialization None Present -Tunneling No -Undermining/Tunneling No -Circular Undermining No -Exudate Amt Medium (34-66%) -Exudate Type Serosanguineous -Wound Margin Distinct, Outline Attached -Granulation Amt Medium (34-66%) -Granulation Quality Pale Darden -Slough/Fibrin Yes -Necrosis Amt Medium (34-66%) -Necrotic Tissue Type Adherent Slough -Texture (Ara-wound Skin Appearance) Scarring -Moisture (Ara-wound Skin Appearance Dry/Scaly ) -Color (Ara-wound Skin Appearance) Hemosiderin Staining -Temperature (Ara-wound Skin No Abnormality Appearance) (Pt Warm) -Tenderness on Palpation (Ara-wound No Skin Appearance) -Ulcer Cleansing Wound Cleanser -Foul Odor after Cleansing No -Anesthetic Used 4% Lidocaine Solution [Edema Assessment] -Lower Limb Edema Present NA WC - Nurse 2 - General Ulcer CM Notes Start: 10/03/18 08:57 Freq: Status: Active Protocol: Activity Type Activity Date Activity User E-Sign Co-Sign Detail Recorded Client Recorded Date Recorded By Document 10/24/18 09:24 DV [id number] 10/24/18 09:27 DV 10/24/18 09:24 Wound Center Nurse 2 [Procedure/Treatment] #6 L Dorsal Cluster -Time 09:24 -Correct Patient Yes -Correct Side, Site, Position Yes -Correct Procedure Yes -Procedure Performed Yes -Type of Procedure Debridement -Clinical Debridement Subcutaneous -Post Debridement Size (cm) - Length 1.5 -Post Debridement Size (cm) - Width 0.5 -Post Debridement Size (cm) - Depth 0.2 -Total Square Cm 0.75 -Wound/Ulcer Outcome Not Healed -Ulcer Cleansing Rinsed/ Irrigated with Saline -Foul Odor after Cleansing No -Bioengineered Tissue No -Bleeding Controlled with Pressure -Offloading No -Treatment Response Procedure Tolerated Well #4 LEFT ANKLE -Time 09:25 -Correct Patient Yes -Correct Side, Site, Position Yes -Correct Procedure Yes -Procedure Performed Yes -Type of Procedure Debridement -Clinical Debridement Subcutaneous -Post Debridement Size (cm) - Length 7.3 -Post Debridement Size (cm) - Width 8.3 -Post Debridement Size (cm) - Depth 0.3 -Total Square Cm 60.59 -Wound/Ulcer Outcome Not Healed -Ulcer Cleansing Rinsed/ Irrigated with Saline -Foul Odor after Cleansing No -Bioengineered Tissue No -Bleeding Controlled with Pressure -Offloading No -Treatment Response Procedure Tolerated Well [See Physician Procedure note for Specifics] Pain Scale: 0-10 Numeric [Pain] -Is Patient Pain Free? Yes Musculoskeletal: No Tenderness to Palpation of Joints or Extremities, Tenderness - With manipulation of ulcer sites Neurological: Sensory exam intact to light touch and pain Psych/Mental Status: Normal Affect, Appropriate Debridement Note Post-Debridement Measurements/Treatment WC - Nurse 2 - General Ulcer CM Notes Start: 10/03/18 08:57 Freq: Status: Active Protocol: Activity Type Activity Date Activity User E-Sign Co-Sign Detail Recorded Client Recorded Date Recorded By Document 10/03/18 09:27 DV [id number] 10/03/18 09:53 DV Document 10/10/18 09:23 DV [id number] 10/10/18 09:40 DV Document 10/17/18 09:14 DV [id number] 10/17/18 09:22 DV Document 10/24/18 09:24 DV [id number] 10/24/18 09:27 DV 10/03/18 10/10/18 10/17/18 09:27 09:23 09:14 Wound Center Nurse 2 #6 L Dorsal Cluster -Time 09:24 09:15 -Correct Patient Yes Yes -Correct Side, Site, Position Yes Yes -Correct Procedure Yes Yes -Procedure Performed Yes Yes -Type of Procedure Debridement Debridement -Clinical Debridement Subcutaneous Subcutaneous -Post Debridement Size (cm) - Length 2.1 1.8 -Post Debridement Size (cm) - Width 1.1 0.9 -Post Debridement Size (cm) - Depth 0.2 0.2 -Total Square Cm 2.31 1.62 -Wound/Ulcer Outcome Not Healed Not Healed -Ulcer Cleansing Rinsed/ Rinsed/ Irrigated with Irrigated with Saline Saline -Foul Odor after Cleansing No No -Bioengineered Tissue No No -Bleeding Controlled with Pressure Pressure -Offloading No No -Treatment Response Procedure Procedure Tolerated Well Tolerated Well #4 LEFT ANKLE -Time 09:27 09:25 09:16 -Correct Patient Yes Yes Yes -Correct Side, Site, Position Yes Yes Yes -Correct Procedure Yes Yes Yes -Procedure Performed Yes Yes No -Type of Procedure Debridement Debridement Debridement -Clinical Debridement Subcutaneous Subcutaneous Subcutaneous -Post Debridement Size (cm) - Length 6.4 7.0 7.5 -Post Debridement Size (cm) - Width 7.5 7.9 8.3 -Post Debridement Size (cm) - Depth 0.3 0.3 0.3 -Total Square Cm 48.00 55.30 62.25 -Wound/Ulcer Outcome Not Healed Not Healed Not Healed -Ulcer Cleansing Rinsed/ Rinsed/ Irrigated with Irrigated with Saline Saline -Foul Odor after Cleansing No No No -Bioengineered Tissue Yes No No -Type of bioengineered Tissue EPIFIX -Expiration Date 05/29/23 -Product Lot Number [id number] -Percent Used 100 -Saline Lot Number NA -Topical Lidocaine (%) 4 -Bleeding Controlled with Pressure Pressure Pressure -Offloading No No -Treatment Response Procedure Procedure Procedure Tolerated Well Tolerated Well Tolerated Well Pain Scale: 0-10 Numeric Is Patient Pain Free? Yes Yes Yes 10/24/18 09:24 Wound Center Nurse 2 #6 L Dorsal Cluster -Time 09:24 -Correct Patient Yes -Correct Side, Site, Position Yes -Correct Procedure Yes -Procedure Performed Yes -Type of Procedure Debridement -Clinical Debridement Subcutaneous -Post Debridement Size (cm) - Length 1.5 -Post Debridement Size (cm) - Width 0.5 -Post Debridement Size (cm) - Depth 0.2 -Total Square Cm 0.75 -Wound/Ulcer Outcome Not Healed -Ulcer Cleansing Rinsed/ Irrigated with Saline -Foul Odor after Cleansing No -Bioengineered Tissue No -Bleeding Controlled with Pressure -Offloading No -Treatment Response Procedure Tolerated Well #4 LEFT ANKLE -Time 09:25 -Correct Patient Yes -Correct Side, Site, Position Yes -Correct Procedure Yes -Procedure Performed Yes -Type of Procedure Debridement -Clinical Debridement Subcutaneous -Post Debridement Size (cm) - Length 7.3 -Post Debridement Size (cm) - Width 8.3 -Post Debridement Size (cm) - Depth 0.3 -Total Square Cm 60.59 -Wound/Ulcer Outcome Not Healed -Ulcer Cleansing Rinsed/ Irrigated with Saline -Foul Odor after Cleansing No -Bioengineered Tissue No -Type of bioengineered Tissue -Expiration Date -Product Lot Number -Percent Used -Saline Lot Number -Topical Lidocaine (%) -Bleeding Controlled with Pressure -Offloading No -Treatment Response Procedure Tolerated Well Pain Scale: 0-10 Numeric Is Patient Pain Free? Yes Wound debrided: Left medial ankle Laterality: Left Type of Debridement: Excisional debridement Anesthesia Used: 4% Lidocaine Solution Depth: in the subcutaneous layer Percentage of wound debrided: 100 Instrument Used: 7mm curette Tissue Removed: Adherent slough, fibrin, biofilm, hyperkeratotic tissue Severity: Fat Layer Exposed Amount of bleeding with debridement: Mild Bleeding Controlled with: Pressure Patient tolerated procedure well - Additional Wound Wound debrided: Left dorsal medial foot Laterality: Left Type of Debridement: Excisional debridement Anesthesia Used: 4% Lidocaine Solution Depth: in the subcutaneous layer Percentage of wound debrided: 100 Instrument Used: 7mm curette Tissue Removed: Adherent slough, fibrin, biofilm, hyperkeratotic tissue Severity: Fat Layer Exposed Amount of bleeding with debridement: Mild Bleeding Controlled with: Pressure Patient tolerated procedure: Patient tolerated procedure well Assessment/Plan Clinical Impression(s) from Imaging Studies Ankle X-Ray 10/10/18 09:58 IMPRESSION: Skin ulceration noted medial to the medial malleolus but no associated osseous lesion or involvement Electronically Signed: Arnulfo Wilson MD at 10:21 EST , Service support , Foot X-Ray 10/10/18 09:58 IMPRESSION: Normal x-ray examination of the foot. Electronically Signed: Arnulfo Wilson MD at 10:20 EST , Service support , Assessment: Right medial ankle ulcer resolved. Peripheral vascular occlusive disease. Nonhealing ulcers resolved. Edema Plan: Patient was carefully examined and evaluated again today. Subcutaneous debridement was performed to the aforementioned ulcer sites as noted in the clinical panel again this week. Once complete, the ulcer sites were carefully cleansed and then dressed with Elvira to the bases followed by dry sterile dressing and Tubigrip for compression. Patient has a couple of days left of Levaquin and Flagyl and has been doing well with these and having no side effects. Three-view x-rays of the left foot and ankle were also ordered last week and they did not demonstrate any acute osseous abnormalities according to the report. Full report is in patient's chart. The importance of offloading the ulcer sites was discussed at length with this patient again today. He says he is unable to completely stop working, but he does have the option for light duty. He is to continue with this. I stressed the importance of keeping pressure off of all of the ulcer sites and how this will impact his healing potential. Patient was instructed to be off his feet as much as possible and to keep the lower extremities elevated while not at work. The importance of compression was also discussed with this patient today. LEAS studies were reviewed at a previous patient visit and the results are in the patient's chart. I continue to recommend nutritional supplementation with a high-protein diet at this time in order to help optimize ulcer healing potential. Smoking cessation was stressed again today. All signs and symptoms of local and systemic infection were discussed in great detail with the patient today and he was instructed to go to the emergency room immediately should he notice any of these. All questions were answered to the patient's satisfaction. Patient will follow-up in clinic in 1 week to check on progress, or sooner if needed.
== END 2018-10-28 23:59 ==
LOC: WC 09:00
PROVIDERS: Family Provider Internal Medicine Infectious Disease; PCP Internal Medicine Infectious Disease; Referring Provider Podiatrist; Visit Provider Podiatrist
DX: I87.312 Chronic venous hypertension (idiopathic) with ulcer of left lower extremity (principal); L97.322 Non-pressure chronic ulcer of left ankle with fat layer exposed; I73.9 Peripheral vascular disease, unspecified; R60.0 Localized edema
CPT/HCPCS: 11042; 11045; 15275; 73610; 73630; 87070; 87075; 87077; 87186; 87205; 87640; Q4131

== ENCOUNTER 2018-11-21 08:15 | Outpatient (RCR) | payer BC, SELFPAY ==
[2018-10-29 00:31] VITALS: BP 147/85; PULSE 90; RESP 16; TEMP 36.2
[2018-10-31 09:16] VITALS: BP 134/83; PULSE 93; RESP 16; TEMP 36.3; BMI 31.4
--- NOTE | 2018-10-31 13:25 | PN.PCM_ITS ---
(1) Ulcer of left lower extremity with fat layer exposed Status: Acute Current Visit: No Code(s): L97.922 - Non-pressure chronic ulcer of unspecified part of left lower leg with fat layer exposed (2) PVD (peripheral vascular disease) Status: Acute Current Visit: No Code(s): I73.9 - Peripheral vascular disease, unspecified (3) Chronic venous insufficiency Status: Acute Current Visit: No Code(s): I87.2 - Venous insufficiency (chronic) (peripheral) (4) Edema, lower extremity Status: Acute Current Visit: No Code(s): R60.0 - Localized edema (5) Pain of left lower extremity Status: Acute Current Visit: No Code(s): M79.605 - Pain in left leg (6) Delayed wound healing Status: Acute Current Visit: No Code(s): T14.8XXD - Other injury of unspecified body region, subsequent encounter Type of Wound Chief Complaint: ulcers to the left lower leg/foot History of Wound: This is a 51-year-old white male presents to wound healing center with a long-standing history of chronic venous insufficiency, chronic venous hypertension, lower extremity edema, lower extremity pain, and 3 ulcer sites to left lower leg/foot. The patient has had multiple ulcerations in the lower extremities bilaterally, related to his chronic venous disease. He also has chronic venous stasis changes. The skin changes include hyperpigmentation. The patient has previously undergone endovenous laser ablation of the left and right great saphenous vein, the small saphenous vein, the left accessory saphenous vein, and an incompetent left calf fresh foods cake decorator vein located 15 cm p roximal to the left medial malleolus. He is currently wearing graduated compression stockings which are documented to be 20-30 mmHg compression, however, he says the ones he has on are about a year old. He has new ones at home that he has not been wearing. 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 Patient says that he noticed a small area start opening on the top of his left foot about 8-10 months ago. He says he tried to doctor this on his own with old wound care supplies. He says this continued to get slightly worse. Then, about 4 months ago, he noticed the area around the medial malleolus starting to break down, and that has slowly been getting worse too. He also has a small anterior lower leg ulcer. Nothing he has done on his own to treat these areas has helped. He decided he should finally come back to the wound healing center to see if he can get the areas to heal again. Progress of Wound: Ulcer to left medial ankle shows slight improvement in appearance again this week. Dorsal medial foot ulcer improving as well. Patient denies any feelings of nausea, vomiting, fever, chills at this time. - Physical Exam Vital Signs Temp Pulse Resp BP 97.3 F L 93 16 134/83 H 10/31/18 09:16 10/31/18 09:16 10/31/18 09:16 10/31/18 09:16 General: Alert, Oriented x3, Cooperative, No apparent distress Extremities: Capillary Refill Less than 3 Seconds, No Calf Tenderness - Negative Lakisha and Hough sign, Diminished Peripheral Pulses - DP pulses palpable and PT pulses nonpalpable, Edema - Slight lower extremity edema Skin: Ulcer/ Wound - Ulcer to left medial ankle and dorsal left foot with fat layer exposed. The bases of each ulcer site have shown slight improvement again this week. The bases of each ulcer site demonstrate adherent slough, fibrin, granular tissue, biofilm, as well as some surrounding hyperkeratotic tissue. There continues to be no probing to bone, no tracking, no undermining, no surrounding or extending cellulitis, no purulence, no malodor, no increase in warmth. Wound Measurements and Assessment WC - Nurse 1 - General Ulcer Measurement Start: 10/31/18 09:16 Freq: Status: Active Protocol: Activity Type Activity Date Activity User E-Sign Co-Sign Detail Recorded Client Recorded Date Recorded By Document 10/31/18 09:16 CS [id number] 10/31/18 09:20 CS 10/31/18 09:16 Wound Center Nurse 1 [Ulcer Assessment] #6 L Dorsal Cluster -Combined with other wound No -Current Size (cm) - Length 0.9 -Current Size (cm) - Width 0.3 -Current Size (cm) - Depth 0.2 -Total Square Cm 0.27 -Photo Taken No -Epithelialization None Present -Tunneling No -Undermining/Tunneling No -Circular Undermining No -Exudate Amt Medium (34-66%) -Exudate Type Serosanguineous -Wound Margin Distinct, Outline Attached -Granulation Amt Large (67-100%) -Granulation Quality Red -Slough/Fibrin Yes -Necrosis Amt Medium (34-66%) -Necrotic Tissue Type Adherent Slough -Structure Exposed None/Limited to Skin Breakdown -Texture (Ara-wound Skin Appearance) No Abnormality Assessed -Moisture (Ara-wound Skin Appearance Dry/Scaly ) -Color (Ara-wound Skin Appearance) No Abnormality Assessed -Temperature (Ara-wound Skin No Abnormality Appearance) (Pt Warm) -Tenderness on Palpation (Ara-wound No Skin Appearance) -Ulcer Cleansing Rinsed/ Irrigated with Saline -Foul Odor after Cleansing No -Anesthetic Used 4% Lidocaine Solution #4 LEFT ANKLE -Combined with other wound No -Current Size (cm) - Length 7 -Current Size (cm) - Width 7.4 -Current Size (cm) - Depth 0.3 -Total Square Cm 51.8 -Photo Taken No -Epithelialization Small 1-33% -Tunneling No -Undermining/Tunneling No -Circular Undermining No -Exudate Amt Medium (34-66%) -Exudate Type Serosanguineous -Wound Margin Distinct, Outline Attached -Granulation Amt Medium (34-66%) -Granulation Quality Pale [employer] -Slough/Fibrin Yes -Necrosis Amt Medium (34-66%) -Necrotic Tissue Type Adherent Slough -Structure Exposed None/Limited to Skin Breakdown -Texture (Ara-wound Skin Appearance) Assessed Scarring -Moisture (Ara-wound Skin Appearance Dry/Scaly ) -Color (Ara-wound Skin Appearance) Assessed -Temperature (Ara-wound Skin No Abnormality Appearance) (Pt Warm) -Tenderness on Palpation (Ara-wound Yes Skin Appearance) -Ulcer Cleansing Rinsed/ Irrigated with Saline -Foul Odor after Cleansing No -Anesthetic Used 4% Lidocaine Solution [Edema Assessment] -Lower Limb Edema Present NA WC - Nurse 2 - General Ulcer CM Notes Start: 10/31/18 09:16 Freq: Status: Active Protocol: Activity Type Activity Date Activity User E-Sign Co-Sign Detail Recorded Client Recorded Date Recorded By Document 10/31/18 09:27 DV [id number] 10/31/18 09:37 DV 10/31/18 09:27 Wound Center Nurse 2 [Procedure/Treatment] #6 L Dorsal Cluster -Time 09:29 -Correct Patient Yes -Correct Side, Site, Position Yes -Correct Procedure Yes -Procedure Performed Yes -Type of Procedure Debridement -Clinical Debridement Subcutaneous -Post Debridement Size (cm) - Length 1.5 -Post Debridement Size (cm) - Width 0.5 -Post Debridement Size (cm) - Depth 0.2 -Total Square Cm 0.75 -Wound/Ulcer Outcome Not Healed -Ulcer Cleansing Rinsed/ Irrigated with Saline -Foul Odor after Cleansing No -Bioengineered Tissue No -Bleeding Controlled with Pressure -Offloading No -Treatment Response Procedure Tolerated Well #4 LEFT ANKLE -Time 09:30 -Correct Patient Yes -Correct Side, Site, Position Yes -Correct Procedure Yes -Procedure Performed Yes -Type of Procedure Debridement -Clinical Debridement Subcutaneous -Post Debridement Size (cm) - Length 7.3 -Post Debridement Size (cm) - Width 8.3 -Post Debridement Size (cm) - Depth 0.3 -Total Square Cm 60.59 -Wound/Ulcer Outcome Not Healed -Ulcer Cleansing Rinsed/ Irrigated with Saline -Foul Odor after Cleansing No -Bioengineered Tissue No -Bleeding Controlled with Pressure -Offloading No -Treatment Response Procedure Tolerated Well [See Physician Procedure note for Specifics] Pain Scale: 0-10 Numeric [Pain] -Is Patient Pain Free? Yes Musculoskeletal: No Tenderness to Palpation of Joints or Extremities, Tenderness - With manipulation of ulcer sites Neurological: Sensory exam intact to light touch and pain Psych/Mental Status: Normal Affect, Appropriate Debridement Note Post-Debridement Measurements/Treatment WC - Nurse 2 - General Ulcer CM Notes Start: 10/31/18 09:16 Freq: Status: Active Protocol: Activity Type Activity Date Activity User E-Sign Co-Sign Detail Recorded Client Recorded Date Recorded By Document 10/31/18 09:27 DV [id number] 10/31/18 09:37 DV 10/31/18 09:27 Wound Center Nurse 2 #6 L Dorsal Cluster -Time 09:29 -Correct Patient Yes -Correct Side, Site, Position Yes -Correct Procedure Yes -Procedure Performed Yes -Type of Procedure Debridement -Clinical Debridement Subcutaneous -Post Debridement Size (cm) - Length 1.5 -Post Debridement Size (cm) - Width 0.5 -Post Debridement Size (cm) - Depth 0.2 -Total Square Cm 0.75 -Wound/Ulcer Outcome Not Healed -Ulcer Cleansing Rinsed/ Irrigated with Saline -Foul Odor after Cleansing No -Bioengineered Tissue No -Bleeding Controlled with Pressure -Offloading No -Treatment Response Procedure Tolerated Well #4 LEFT ANKLE -Time 09:30 -Correct Patient Yes -Correct Side, Site, Position Yes -Correct Procedure Yes -Procedure Performed Yes -Type of Procedure Debridement -Clinical Debridement Subcutaneous -Post Debridement Size (cm) - Length 7.3 -Post Debridement Size (cm) - Width 8.3 -Post Debridement Size (cm) - Depth 0.3 -Total Square Cm 60.59 -Wound/Ulcer Outcome Not Healed -Ulcer Cleansing Rinsed/ Irrigated with Saline -Foul Odor after Cleansing No -Bioengineered Tissue No -Bleeding Controlled with Pressure -Offloading No -Treatment Response Procedure Tolerated Well Pain Scale: 0-10 Numeric Is Patient Pain Free? Yes Wound debrided: Left medial ankle Laterality: Left Type of Debridement: Excisional debridement Anesthesia Used: 4% Lidocaine Solution Depth: in the subcutaneous layer Percentage of wound debrided: 100 Instrument Used: 7mm curette Tissue Removed: Adherent slough, fibrin, biofilm, hyperkeratotic tissue Severity: Fat Layer Exposed Amount of bleeding with debridement: Mild Bleeding Controlled with: Pressure Patient tolerated procedure well - Additional Wound Wound debrided: Left dorsal medial foot Laterality: Left Type of Debridement: Excisional debridement Anesthesia Used: 4% Lidocaine Solution Depth: in the subcutaneous layer Percentage of wound debrided: 100 Instrument Used: 7mm curette Tissue Removed: Adherent slough, fibrin, biofilm, hyperkeratotic tissue Severity: Fat Layer Exposed Amount of bleeding with debridement: Mild Bleeding Controlled with: Pressure Patient tolerated procedure: Patient tolerated procedure well Assessment/Plan Assessment: Right medial ankle ulcer resolved. Peripheral vascular occlusive disease. Nonhealing ulcers resolved. Edema Plan: Patient was carefully examined and evaluated again today. Subcutaneous debridement was performed to the aforementioned ulcer sites as noted in the clinical panel again this week. Once complete, the ulcer sites were carefully cleansed and then dressed with Elvira to the bases followed by dry sterile dressing and Tubigrip for compression. Patient has finished Levaquin and Flagyl and has been doing well with these and having no side effects. Three-view x- rays of the left foot and ankle were also ordered previously and they did not demonstrate any acute osseous abnormalities according to the report. Full report is in patient's chart. The importance of offloading the ulcer sites was discussed at length with this patient again today. He says he is unable to completely stop working, but he does have the option for light duty. He is to continue with this. I stressed the importance of keeping pressure off of all of the ulcer sites and how this will impact his healing potential. Patient was instructed to be off his feet as much as possible and to keep the lower extremities elevated while not at work. The importance of compression was also discussed with this patient today. LEAS studies were reviewed at a previous patient visit and the results are in the patient's chart. I continue to recommend nutritional supplementation with a high-protein diet at this time in order to help optimize ulcer healing potential. Smoking cessation was stressed again today. All signs and symptoms of local and systemic infection were discussed in great detail with the patient today and he was instructed to go to the emergency room immediately should he notice any of these. All questions were answered to the patient's satisfaction. Patient will follow-up in clinic in 1 week to check on progress, or sooner if needed.
[2018-11-07 09:06] VITALS: BP 153/91; PULSE 82; RESP 18; TEMP 37; BMI 31.4
--- NOTE | 2018-11-07 09:33 | PN.PCM_ITS ---
(1) Ulcer of left lower extremity with fat layer exposed Status: Acute Current Visit: No Code(s): L97.922 - Non-pressure chronic ulcer of unspecified part of left lower leg with fat layer exposed (2) PVD (peripheral vascular disease) Status: Acute Current Visit: No Code(s): I73.9 - Peripheral vascular disease, unspecified (3) Chronic venous insufficiency Status: Acute Current Visit: No Code(s): I87.2 - Venous insufficiency (chronic) (peripheral) (4) Edema, lower extremity Status: Acute Current Visit: No Code(s): R60.0 - Localized edema (5) Pain of left lower extremity Status: Acute Current Visit: No Code(s): M79.605 - Pain in left leg (6) Delayed wound healing Status: Acute Current Visit: No Code(s): T14.8XXD - Other injury of unspecified body region, subsequent encounter Type of Wound Chief Complaint: ulcers to the left lower leg/foot History of Wound: This is a 51-year-old white male presents to wound healing center with a long-standing history of chronic venous insufficiency, chronic venous hypertension, lower extremity edema, lower extremity pain, and 3 ulcer sites to left lower leg/foot. The patient has had multiple ulcerations in the lower extremities bilaterally, related to his chronic venous disease. He also has chronic venous stasis changes. The skin changes include hyperpigmentation. 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 He is currently wearing graduated compression stockings which are documented to be 20-30 mmHg compression, however, he says the ones he has on are about a year old. He has new ones at home that he has not been wearing. 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 Patient says that he noticed a small area start opening on the top of his left foot about 8-10 months ago. He says he tried to doctor this on his own with old wound care supplies. He says this continued to get slightly worse. Then, about 4 months ago, he noticed the area around the medial malleolus starting to break down, and that has slowly been getting worse too. He also has a small anterior lower leg ulcer. Nothing he has done on his own to treat these areas has helped. He decided he should finally come back to the wound healing center to see if he can get the areas to heal again. Progress of Wound: Ulcer to left medial ankle reamains fairly stable in appearance again this week. Patient denies any feelings of nausea, vomiting, fever, chills at this time. - Physical Exam Vital Signs Temp Pulse Resp BP 98.6 F 82 18 153/91 H 11/07/18 09:06 11/07/18 09:06 11/07/18 09:06 11/07/18 09:06 General: Alert, Oriented x3, Cooperative, No apparent distress Extremities: Capillary Refill Less than 3 Seconds, No Calf Tenderness - Negative Lakisha and Hough sign, Diminished Peripheral Pulses - DP pulses palpable and PT pulses nonpalpable, Edema - Slight lower extremity edema Skin: Ulcer/ Wound - Ulcer to left medial ankle and dorsal left foot with fat layer exposed. The bases of each ulcer site remained fairly stable again this week with not much improvement noted. The bases of each site demonstrate adherent slough, fibrin, granular tissue, biofilm, as well as surrounding hyperkeratotic tissue. There continues to be no probing to bone, no tracking, no undermining, no surrounding or extending cellulitis, no purulence, no malodor, no increase in warmth. Wound Measurements and Assessment WC - Nurse 1 - General Ulcer Measurement Start: 10/31/18 09:16 Freq: Status: Active Protocol: Activity Type Activity Date Activity User E-Sign Co-Sign Detail Recorded Client Recorded Date Recorded By Document 11/07/18 09:06 MS [id number] 11/07/18 09:10 MS 11/07/18 09:06 Wound Center Nurse 1 [Ulcer Assessment] #6 L Dorsal Cluster -Combined with other wound No -Current Size (cm) - Length 8 -Current Size (cm) - Width 7.3 -Current Size (cm) - Depth 0.4 -Total Square Cm 58.4 -Photo Taken No -Tunneling No -Undermining/Tunneling No -Circular Undermining No -Exudate Amt Small -Exudate Type Serosanguineous -Wound Margin Thickened & Rolled Under -Granulation Amt Medium (34-66%) -Granulation Quality Red -Necrosis Amt Medium (34-66%) -Necrotic Tissue Type Adherent Slough -Texture (Ara-wound Skin Appearance) Assessed -Moisture (Ara-wound Skin Appearance Assessed ) Dry/Scaly -Color (Ara-wound Skin Appearance) Assessed Hemosiderin Staining -Temperature (Ara-wound Skin No Abnormality Appearance) (Pt Warm) -Tenderness on Palpation (Ara-wound No Skin Appearance) -Ulcer Cleansing Rinsed/ Irrigated with Saline -Foul Odor after Cleansing No -Anesthetic Used 4% Lidocaine Solution #4 LEFT ANKLE -Combined with other wound No -Current Size (cm) - Length 1 -Current Size (cm) - Width 0.3 -Current Size (cm) - Depth 0.2 -Total Square Cm 0.3 -Photo Taken No -Tunneling No -Undermining/Tunneling No -Circular Undermining No -Exudate Amt None Present -Wound Margin Distinct, Outline Attached -Granulation Amt Large (67-100%) -Granulation Quality Red -Necrosis Amt None Present (0 %) -Texture (Ara-wound Skin Appearance) Assessed -Moisture (Ara-wound Skin Appearance Assessed ) Dry/Scaly -Color (Ara-wound Skin Appearance) Assessed Hemosiderin Staining -Temperature (Ara-wound Skin No Abnormality Appearance) (Pt Warm) -Tenderness on Palpation (Ara-wound No Skin Appearance) -Ulcer Cleansing Rinsed/ Irrigated with Saline -Foul Odor after Cleansing No -Anesthetic Used 4% Lidocaine Solution [Edema Assessment] -Left Calf (cm) 35.6 -Left Ankle (cm) 24 Musculoskeletal: No Tenderness to Palpation of Joints or Extremities, Tenderness - With manipulation of ulcer sites Neurological: Sensory exam intact to light touch and pain Psych/Mental Status: Normal Affect, Appropriate Debridement Note Post-Debridement Measurements/Treatment WC - Nurse 2 - General Ulcer CM Notes Start: 10/31/18 09:16 Freq: Status: Active Protocol: Activity Type Activity Date Activity User E-Sign Co-Sign Detail Recorded Client Recorded Date Recorded By Document 10/31/18 09:27 DV [id number] 10/31/18 09:37 DV 10/31/18 09:27 Wound Center Nurse 2 #6 L Dorsal Cluster -Time 09:29 -Correct Patient Yes -Correct Side, Site, Position Yes -Correct Procedure Yes -Procedure Performed Yes -Type of Procedure Debridement -Clinical Debridement Subcutaneous -Post Debridement Size (cm) - Length 1.5 -Post Debridement Size (cm) - Width 0.5 -Post Debridement Size (cm) - Depth 0.2 -Total Square Cm 0.75 -Wound/Ulcer Outcome Not Healed -Ulcer Cleansing Rinsed/ Irrigated with Saline -Foul Odor after Cleansing No -Bioengineered Tissue No -Bleeding Controlled with Pressure -Offloading No -Treatment Response Procedure Tolerated Well #4 LEFT ANKLE -Time 09:30 -Correct Patient Yes -Correct Side, Site, Position Yes -Correct Procedure Yes -Procedure Performed Yes -Type of Procedure Debridement -Clinical Debridement Subcutaneous -Post Debridement Size (cm) - Length 7.3 -Post Debridement Size (cm) - Width 8.3 -Post Debridement Size (cm) - Depth 0.3 -Total Square Cm 60.59 -Wound/Ulcer Outcome Not Healed -Ulcer Cleansing Rinsed/ Irrigated with Saline -Foul Odor after Cleansing No -Bioengineered Tissue No -Bleeding Controlled with Pressure -Offloading No -Treatment Response Procedure Tolerated Well Pain Scale: 0-10 Numeric Is Patient Pain Free? Yes No debridement was completed today Assessment/Plan Assessment: Right medial ankle ulcer resolved. Peripheral vascular occlusive disease. Nonhealing ulcers resolved. Edema Plan: Patient was carefully examined and evaluated again today. No debridement was performed today. The base was dressed with hydrofera blue, followed by adaptic, and a dry sterile absorptive dressing. This was followed by Tubigrip for compression. I also prescribed Augmentin 875 and preidsone 10mg tabs to be taken as directed. Three-view x-rays of the left foot and ankle were also ordered previously and they did not demonstrate any acute osseous abnormalities according to the report. Full report is in patient's chart. The importance of offloading the ulcer sites was discussed at length with this patient again today. He says he is unable to completely stop working, but he does have the option for light duty. He is to continue with this. I stressed the importance of keeping pressure off of all of the ulcer sites and how this will impact his healing potential. Patient was instructed to be off his feet as much as possible and to keep the lower extremities elevated while not at work. The importance of compression was also discussed with this patient today. LEAS studies were reviewed at a previous patient visit and the results are in the patient's chart. I continue to recommend nutritional supplementation with a high-protein diet at this time in order to help optimize ulcer healing potential. Smoking cessation was stressed again today. All signs and symptoms of local and systemic infection were discussed in great detail with the patient today and he was instructed to go to the emergency room immediately should he notice any of these. All questions were answered to the patient's satisfaction. Patient will follow-up in clinic in 1 week to check on progress, or sooner if needed.
[2018-11-14 09:51] VITALS: BP 144/75; PULSE 92; RESP 16; TEMP 36.6; BMI 31.4
--- NOTE | 2018-11-14 10:28 | PCM.WC.PN ---
(1) Ulcer of left lower extremity with fat layer exposed Status: Acute Current Visit: No Code(s): L97.922 - Non-pressure chronic ulcer of unspecified part of left lower leg with fat layer exposed (2) PVD (peripheral vascular disease) Status: Acute Current Visit: No Code(s): I73.9 - Peripheral vascular disease, unspecified (3) Chronic venous insufficiency Status: Acute Current Visit: No Code(s): I87.2 - Venous insufficiency (chronic) (peripheral) (4) Edema, lower extremity Status: Acute Current Visit: No Code(s): R60.0 - Localized edema (5) Pain of left lower extremity Status: Acute Current Visit: No Code(s): M79.605 - Pain in left leg (6) Delayed wound healing Status: Acute Current Visit: No Code(s): T14.8XXD - Other injury of unspecified body region, subsequent encounter Type of Wound Chief Complaint: ulcers to the left lower leg/foot History of Wound: This is a 51-year-old white male presents to wound healing center with a long-standing history of chronic venous insufficiency, chronic venous hypertension, lower extremity edema, lower extremity pain, and 3 ulcer sites to left lower leg/foot. The patient has had multiple ulcerations in the lower extremities bilaterally, related to his chronic venous disease. He also has chronic venous stasis changes. The skin changes include hyperpigmentation. The patient has previously undergone endovenous laser ablation of the left and right great saphenous vein, the small saphenous vein, the left accessory saphenous vein, and an incompetent left calf mud analysis operator vein located 15 cm proximal to the left medial malleolus. He is currently wearing graduated compression stockings which are documented to be 20-30 mmHg compression, however, he says the ones he has on are about a year old. He has new ones at home that he has not been wearing. 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 Patient says that he noticed a small area start opening on the top of his left foot about 8-10 months ago. He says he tried to doctor this on his own with old wound care supplies. He says this continued to get slightly worse. Then, about 4 months ago, he noticed the area around the medial malleolus starting to break down, and that has slowly been getting worse too. He also has a small anterior lower leg ulcer. Nothing he has done on his own to treat these areas has helped. He decided he should finally come back to the wound healing center to see if he can get the areas to heal again. Progress of Wound: Ulcer to left medial ankle shows some minor improvement to appearance of ulcer base this week. Patient also says there is much less drainage. Patient denies any feelings of nausea, vomiting, fever, chills at this time. - Physical Exam Vital Signs Temp Pulse Resp BP 97.8 F 92 16 144/75 H 11/14/18 09:51 11/14/18 09:51 11/14/18 09:51 11/14/18 09:51 General: Alert, Oriented x3, Cooperative, No apparent distress Extremities: Capillary Refill Less than 3 Seconds, No Calf Tenderness - Negative Lakisha and Hough sign, Diminished Peripheral Pulses - DP and PT pulses nonpalpable, Edema - Slight lower extremity edema Skin: Ulcer/ Wound - 2 small ulcers to the left dorsal foot are healed. Ulcer to left medial ankle with fat layer exposed. Some improvement appreciated to the base of the ulcer this week. The base is noted to be a mixture of adherent slough, fibrin, granular tissue, biofilm, as well as some surrounding hyperkeratotic tissue. There continues to be no probing to bone, no tracking, no undermining, no surrounding or extending cellulitis, no purulence, no malodor, no increase in warmth to the ulcer site. Wound Measurements and Assessment WC - Nurse 1 - General Ulcer Measurement Start: 10/31/18 09:16 Freq: Status: Active Protocol: Activity Type Activity Date Activity User E-Sign Co-Sign Detail Recorded Client Recorded Date Recorded By Document 11/14/18 09:51 [id number] 11/14/18 09:55 11/14/18 09:51 Wound Center Nurse 1 [Ulcer Assessment] #6 L Dorsal Cluster -Combined with other wound No -Photo Taken No -Epithelialization Large 67-100% -Tunneling No -Undermining/Tunneling No -Circular Undermining No -Exudate Amt None Present -Wound Margin Distinct, Outline Attached -Granulation Amt Large (67-100%) -Granulation Quality Red -Slough/Fibrin Yes -Necrotic Tissue Type Adherent Slough -Structure Exposed None/Limited to Skin Breakdown -Texture (Ara-wound Skin Appearance) No Abnormality Assessed -Moisture (Ara-wound Skin Appearance Dry/Scaly ) -Color (Ara-wound Skin Appearance) No Abnormality Assessed -Temperature (Ara-wound Skin No Abnormality Appearance) (Pt Warm) -Tenderness on Palpation (Ara-wound No Skin Appearance) -Ulcer Cleansing Rinsed/ Irrigated with Saline -Foul Odor after Cleansing No -Anesthetic Used 4% Lidocaine Solution #4 LEFT ANKLE -Combined with other wound No -Current Size (cm) - Length 8.3 -Current Size (cm) - Width 7.3 -Current Size (cm) - Depth 0.5 -Total Square Cm 60.59 -Photo Taken No -Epithelialization None Present -Tunneling No -Undermining/Tunneling No -Circular Undermining No -Exudate Amt Medium -Exudate Type Serosanguineous -Wound Margin Distinct, Outline Attached -Granulation Amt Large (67-100%) -Granulation Quality Pale [place] -Slough/Fibrin Yes -Necrotic Tissue Type Adherent Slough -Structure Exposed None/Limited to Skin Breakdown -Texture (Ara-wound Skin Appearance) No Abnormality Assessed -Moisture (Ara-wound Skin Appearance Dry/Scaly ) -Color (Ara-wound Skin Appearance) No Abnormality -Temperature (Ara-wound Skin No Abnormality Appearance) (Pt Warm) -Tenderness on Palpation (Ara-wound No Skin Appearance) -Ulcer Cleansing Rinsed/ Irrigated with Saline -Foul Odor after Cleansing No -Anesthetic Used 4% Lidocaine Solution [Edema Assessment] -Lower Limb Edema Present No -Left Calf (cm) 34.6 -Left Ankle (cm) 23.4 Musculoskeletal: No Tenderness to Palpation of Joints or Extremities, Tenderness - With manipulation of ulcer sites Neurological: Sensory exam intact to light touch and pain Psych/Mental Status: Normal Affect, Appropriate Debridement Note Post-Debridement Measurements/Treatment WC - Nurse 2 - General Ulcer CM Notes Start: 10/31/18 09:16 Freq: Status: Active Protocol: Activity Type Activity Date Activity User E-Sign Co-Sign Detail Recorded Client Recorded Date Recorded By Document 10/31/18 09:27 DV [id number] 10/31/18 09:37 DV 10/31/18 09:27 Wound Center Nurse 2 #6 L Dorsal Cluster -Time 09:29 -Correct Patient Yes -Correct Side, Site, Position Yes -Correct Procedure Yes -Procedure Performed Yes -Type of Procedure Debridement -Clinical Debridement Subcutaneous -Post Debridement Size (cm) - Length 1.5 -Post Debridement Size (cm) - Width 0.5 -Post Debridement Size (cm) - Depth 0.2 -Total Square Cm 0.75 -Wound/Ulcer Outcome Not Healed -Ulcer Cleansing Rinsed/ Irrigated with Saline -Foul Odor after Cleansing No -Bioengineered Tissue No -Bleeding Controlled with Pressure -Offloading No -Treatment Response Procedure Tolerated Well #4 LEFT ANKLE -Time 09:30 -Correct Patient Yes -Correct Side, Site, Position Yes -Correct Procedure Yes -Procedure Performed Yes -Type of Procedure Debridement -Clinical Debridement Subcutaneous -Post Debridement Size (cm) - Length 7.3 -Post Debridement Size (cm) - Width 8.3 -Post Debridement Size (cm) - Depth 0.3 -Total Square Cm 60.59 -Wound/Ulcer Outcome Not Healed -Ulcer Cleansing Rinsed/ Irrigated with Saline -Foul Odor after Cleansing No -Bioengineered Tissue No -Bleeding Controlled with Pressure -Offloading No -Treatment Response Procedure Tolerated Well Pain Scale: 0-10 Numeric Is Patient Pain Free? Yes Wound debrided: Left medial ankle Laterality: Left Type of Debridement: Selective debridement Anesthesia Used: 4% Lidocaine Solution Depth: in the subcutaneous layer Percentage of wound debrided: 100 Instrument Used: 7mm curette Tissue Removed: Adherent slough, fibrin, hyperkeratotic tissue, biofilm Severity: Fat Layer Exposed Amount of bleeding with debridement: Mild Bleeding Controlled with: Pressure Patient tolerated procedure well Assessment/Plan Plan: Patient was carefully examined and evaluated again today. Selective debridement was performed today as noted in the clinical panel. No aggressive debridement performed. The base was dressed with hydrofera blue, followed by adaptic, and a dry sterile absorptive dressing. This was followed by Tubigrip for compression. Patient is to continue with Augmentin 875 and preidsone 10mg tabs to be taken as directed. He did well with this last week. Three-view x-rays of the left foot and ankle were also ordered previously and they did not demonstrate any acute osseous abnormalities according to the report. Full report is in patient's chart. The importance of offloading the ulcer sites was discussed at length with this patient again today. He says he is unable to completely stop working, but he does have the option for light duty. He is to continue with this. I stressed the importance of keeping pressure off of all of the ulcer sites and how this will impact his healing potential. Patient was instructed to be off his feet as much as possible and to keep the lower extremities elevated while not at work. The importance of compression was also discussed with this patient today. LEAS studies were reviewed at a previous patient visit and the results are in the patient's chart. I continue to recommend nutritional supplementation with a high-protein diet at this time in order to help optimize ulcer healing potential. Smoking cessation was stressed again today. All signs and symptoms of local and systemic infection were discussed in great detail with the patient today and he was instructed to go to the emergency room immediately should he notice any of these. All questions were answered to the patient's satisfaction. Patient will follow-up in clinic in 1 week to check on progress, or sooner if needed.
--- NOTE | 2018-11-14 10:32 | PN.PCM_ITS ---
(1) Ulcer of left lower extremity with fat layer exposed Status: Acute Current Visit: No Code(s): L97.922 - Non-pressure chronic ulcer of unspecified part of left lower leg with fat layer exposed (2) PVD (peripheral vascular disease) Status: Acute Current Visit: No Code(s): I73.9 - Peripheral vascular disease, unspecified (3) Chronic venous insufficiency Status: Acute Current Visit: No Code(s): I87.2 - Venous insufficiency (chronic) (peripheral) (4) Edema, lower extremity Status: Acute Current Visit: No Code(s): R60.0 - Localized edema (5) Pain of left lower extremity Status: Acute Current Visit: No Code(s): M79.605 - Pain in left leg (6) Delayed wound healing Status: Acute Current Visit: No Code(s): T14.8XXD - Other injury of unspecified body region, subsequent encounter Type of Wound Chief Complaint: ulcers to the left lower leg/foot History of Wound: This is a 51-year-old white male presents to wound healing center with a long-standing history of chronic venous insufficiency, chronic venous hypertension, lower extremity edema, lower extremity pain, and 3 ulcer sites to left lower leg/foot. The patient has had multiple ulcerations in the lower extremities bilaterally, related to his chronic venous disease. He also has chronic venous stasis changes. The skin changes include hyperpigmentation. The patient has previously undergone endovenous laser ablation of the left and right great saphenous vein, the small saphenous vein, the left accessory saphenous vein, and an incompetent left calf boat finisher vein located 15 cm p roximal to the left medial malleolus. He is currently wearing graduated compression stockings which are documented to be 20-30 mmHg compression, however, he says the ones he has on are about a year old. He has new ones at home that he has not been wearing. 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 Patient says that he noticed a small area start opening on the top of his left foot about 8-10 months ago. He says he tried to doctor this on his own with old wound care supplies. He says this continued to get slightly worse. Then, about 4 months ago, he noticed the area around the medial malleolus starting to break down, and that has slowly been getting worse too. He also has a small anterior lower leg ulcer. Nothing he has done on his own to treat these areas has helped. He decided he should finally come back to the wound healing center to see if he can get the areas to heal again. Progress of Wound: Ulcer to left medial ankle shows some minor improvement to appearance of ulcer base this week. Patient also says there is much less drainage. Patient denies any feelings of nausea, vomiting, fever, chills at this time. - Physical Exam Vital Signs Temp Pulse Resp BP 97.8 F 92 16 144/75 H 11/14/18 09:51 11/14/18 09:51 11/14/18 09:51 11/14/18 09:51 General: Alert, Oriented x3, Cooperative, No apparent distress Extremities: Capillary Refill Less than 3 Seconds, No Calf Tenderness - Negative Lakisha and Hough sign, Diminished Peripheral Pulses - DP and PT pulses nonpalpable, Edema - Slight lower extremity edema Skin: Ulcer/ Wound - 2 small ulcers to the left dorsal foot are healed. Ulcer to left medial ankle with fat layer exposed. Some improvement appreciated to the base of the ulcer this week. The base is noted to be a mixture of adherent slough, fibrin, granular tissue, biofilm, as well as some surrounding hyperkeratotic tissue. There continues to be no probing to bone, no tracking, no undermining, no surrounding or extending cellulitis, no purulence, no malodor, no increase in warmth to the ulcer site. Wound Measurements and Assessment - Nurse 1 - General Ulcer Measurement Start: 10/31/18 09:16 Freq: Status: Active Protocol: Activity Type Activity Date Activity User E-Sign Co-Sign Detail Recorded Client Recorded Date Recorded By Document 11/14/18 09:51 [id number] 11/14/18 09:55 11/14/18 09:51 Wound Center Nurse 1 [Ulcer Assessment] #6 L Dorsal Cluster -Combined with other wound No -Photo Taken No -Epithelialization Large 67-100% -Tunneling No -Undermining/Tunneling No -Circular Undermining No -Exudate Amt None Present -Wound Margin Distinct, Outline Attached -Granulation Amt Large (67-100%) -Granulation Quality Red -Slough/Fibrin Yes -Necrotic Tissue Type Adherent Slough -Structure Exposed None/Limited to Skin Breakdown -Texture (Ara-wound Skin Appearance) No Abnormality Assessed -Moisture (Ara-wound Skin Appearance Dry/Scaly ) -Color (Ara-wound Skin Appearance) No Abnormality Assessed -Temperature (Ara-wound Skin No Abnormality Appearance) (Pt Warm) -Tenderness on Palpation (Ara-wound No Skin Appearance) -Ulcer Cleansing Rinsed/ Irrigated with Saline -Foul Odor after Cleansing No -Anesthetic Used 4% Lidocaine Solution #4 LEFT ANKLE -Combined with other wound No -Current Size (cm) - Length 8.3 -Current Size (cm) - Width 7.3 -Current Size (cm) - Depth 0.5 -Total Square Cm 60.59 -Photo Taken No -Epithelialization None Present -Tunneling No -Undermining/Tunneling No -Circular Undermining No -Exudate Amt Medium -Exudate Type Serosanguineous -Wound Margin Distinct, Outline Attached -Granulation Amt Large (67-100%) -Granulation Quality Pale [place] -Slough/Fibrin Yes -Necrotic Tissue Type Adherent Slough -Structure Exposed None/Limited to Skin Breakdown -Texture (Ara-wound Skin Appearance) No Abnormality Assessed -Moisture (Ara-wound Skin Appearance Dry/Scaly ) -Color (Ara-wound Skin Appearance) No Abnormality -Temperature (Ara-wound Skin No Abnormality Appearance) (Pt Warm) -Tenderness on Palpation (Ara-wound No Skin Appearance) -Ulcer Cleansing Rinsed/ Irrigated with Saline -Foul Odor after Cleansing No -Anesthetic Used 4% Lidocaine Solution [Edema Assessment] -Lower Limb Edema Present No -Left Calf (cm) 34.6 -Left Ankle (cm) 23.4 Musculoskeletal: No Tenderness to Palpation of Joints or Extremities, Tenderness - With manipulation of ulcer sites Neurological: Sensory exam intact to light touch and pain Psych/Mental Status: Normal Affect, Appropriate Debridement Note Post-Debridement Measurements/Treatment WC - Nurse 2 - General Ulcer CM Notes Start: 10/31/18 09:16 Freq: Status: Active Protocol: Activity Type Activity Date Activity User E-Sign Co-Sign Detail Recorded Client Recorded Date Recorded By Document 10/31/18 09:27 DV [id number] 10/31/18 09:37 DV 10/31/18 09:27 Wound Center Nurse 2 #6 L Dorsal Cluster -Time 09:29 -Correct Patient Yes -Correct Side, Site, Position Yes -Correct Procedure Yes -Procedure Performed Yes -Type of Procedure Debridement -Clinical Debridement Subcutaneous -Post Debridement Size (cm) - Length 1.5 -Post Debridement Size (cm) - Width 0.5 -Post Debridement Size (cm) - Depth 0.2 -Total Square Cm 0.75 -Wound/Ulcer Outcome Not Healed -Ulcer Cleansing Rinsed/ Irrigated with Saline -Foul Odor after Cleansing No -Bioengineered Tissue No -Bleeding Controlled with Pressure -Offloading No -Treatment Response Procedure Tolerated Well #4 LEFT ANKLE -Time 09:30 -Correct Patient Yes -Correct Side, Site, Position Yes -Correct Procedure Yes -Procedure Performed Yes -Type of Procedure Debridement -Clinical Debridement Subcutaneous -Post Debridement Size (cm) - Length 7.3 -Post Debridement Size (cm) - Width 8.3 -Post Debridement Size (cm) - Depth 0.3 -Total Square Cm 60.59 -Wound/Ulcer Outcome Not Healed -Ulcer Cleansing Rinsed/ Irrigated with Saline -Foul Odor after Cleansing No -Bioengineered Tissue No -Bleeding Controlled with Pressure -Offloading No -Treatment Response Procedure Tolerated Well Pain Scale: 0-10 Numeric Is Patient Pain Free? Yes Wound debrided: Left medial ankle Laterality: Left Type of Debridement: Selective debridement Anesthesia Used: 4% Lidocaine Solution Depth: in the subcutaneous layer Percentage of wound debrided: 100 Instrument Used: 7mm curette Tissue Removed: Adherent slough, fibrin, hyperkeratotic tissue, biofilm Severity: Fat Layer Exposed Amount of bleeding with debridement: Mild Bleeding Controlled with: Pressure Patient tolerated procedure well Assessment/Plan Plan: Patient was carefully examined and evaluated again today. Selective debridement was performed today as noted in the clinical panel. No aggressive debridement performed. The base was dressed with hydrofera blue, followed by adaptic, and a dry sterile absorptive dressing. This was followed by Tubigrip for compression. Patient is to continue with Augmentin 875 and preidsone 10mg tabs to be taken as directed. He did well with this last week. Three-view x- rays of the left foot and ankle were also ordered previously and they did not demonstrate any acute osseous abnormalities according to the report. Full report is in patient's chart. The importance of offloading the ulcer sites was discussed at length with this patient again today. He says he is unable to completely stop working, but he does have the option for light duty. He is to continue with this. I stressed the importance of keeping pressure off of all of the ulcer sites and how this will impact his healing potential. Patient was instructed to be off his feet as much as possible and to keep the lower extremities elevated while not at work. The importance of compression was also discussed with this patient today. LEAS studies were reviewed at a previous patient visit and the results are in the patient's chart. I continue to recom mend nutritional supplementation with a high-protein diet at this time in order to help optimize ulcer healing potential. Smoking cessation was stressed again today. All signs and symptoms of local and systemic infection were discussed in great detail with the patient today and he was instructed to go to the emergency room immediately should he notice any of these. All questions were answered to the patient's satisfaction. Patient will follow-up in clinic in 1 week to check on progress, or sooner if needed.
[2018-11-21 08:27] VITALS: BP 176/94; PULSE 85; RESP 14; TEMP 36.3; BMI 31.4
--- NOTE | 2018-11-21 09:42 | PCM.WC.PN ---
(1) Ulcer of left lower extremity with fat layer exposed Status: Acute Current Visit: No Code(s): L97.922 - Non-pressure chronic ulcer of unspecified part of left lower leg with fat layer exposed (2) PVD (peripheral vascular disease) Status: Acute Current Visit: No Code(s): I73.9 - Peripheral vascular disease, unspecified (3) Chronic venous insufficiency Status: Acute Current Visit: No Code(s): I87.2 - Venous insufficiency (chronic) (peripheral) (4) Edema, lower extremity Status: Acute Current Visit: No Code(s): R60.0 - Localized edema (5) Pain of left lower extremity Status: Acute Current Visit: No Code(s): M79.605 - Pain in left leg (6) Delayed wound healing Status: Acute Current Visit: No Code(s): T14.8XXD - Other injury of unspecified body region, subsequent encounter Type of Wound Chief Complaint: ulcers to the left lower leg/foot History of Wound: This is a 51-year-old white male presents to wound healing center with a long-standing history of chronic venous insufficiency, chronic venous hypertension, lower extremity edema, lower extremity pain, and 3 ulcer sites to left lower leg/foot. The patient has had multiple ulcerations in the lower extremities bilaterally, related to his chronic venous disease. He also has chronic venous stasis changes. The skin changes include hyperpigmentation. The patient has previously undergone endovenous laser ablation of the left and right great saphenous vein, the small saphenous vein, the left accessory saphenous vein, and an incompetent left calf pediatric audiologist vein located 15 cm proximal to the left medial malleolus. He is currently wearing graduated compression stockings which are documented to be 20-30 mmHg compression, however, he says the ones he has on are about a year old. He has new ones at home that he has not been wearing. 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 Patient says that he noticed a small area start opening on the top of his left foot about 8-10 months ago. He says he tried to doctor this on his own with old wound care supplies. He says this continued to get slightly worse. Then, about 4 months ago, he noticed the area around the medial malleolus starting to break down, and that has slowly been getting worse too. He also has a small anterior lower leg ulcer. Nothing he has done on his own to treat these areas has helped. He decided he should finally come back to the wound healing center to see if he can get the areas to heal again. Progress of Wound: Base of ulcer to left medial ankle shows some improvement again this week. Patient also says there is much less drainage. Patient denies any feelings of nausea, vomiting, fever, chills at this time. - Physical Exam Vital Signs Temp Pulse Resp BP 97.3 F L 85 14 176/94 H 11/21/18 08:27 11/21/18 08:27 11/21/18 08:27 11/21/18 08:27 General: Alert, Oriented x3, Cooperative, No apparent distress Extremities: Capillary Refill Less than 3 Seconds, No Calf Tenderness - Negative Lakisha and Hough sign, Diminished Peripheral Pulses - DP and PT pulses nonpalpable, Edema - Slight lower extremity edema Skin: Ulcer/ Wound - Ulcer to left medial ankle with fat layer exposed. Slight improvement appreciated to the base of the ulcer again this week. The base is noted to be a mixture of adherent slough, fibrin, granular tissue, biofilm, as well as some surrounding hyperkeratotic tissue. There continues to be no probing to bone, no tracking, no undermining, no surrounding or extending cellulitis, no purulence, no malodor, no increase in warmth to the ulcer site. Wound Measurements and Assessment WC - Nurse 1 - General Ulcer Measurement Start: 10/31/18 09:16 Freq: Status: Active Protocol: Activity Type Activity Date Activity User E-Sign Co-Sign Detail Recorded Client Recorded Date Recorded By Document 11/21/18 08:27 CS [id number] 11/21/18 08:28 CS 11/21/18 08:27 Wound Center Nurse 1 [Ulcer Assessment] #4 LEFT ANKLE -Combined with other wound No -Current Size (cm) - Length 8.7 -Current Size (cm) - Width 7.3 -Current Size (cm) - Depth 0.3 -Total Square Cm 63.51 -Photo Taken No -Epithelialization None Present -Tunneling No -Undermining/Tunneling No -Circular Undermining No -Exudate Amt Small -Exudate Type Serosanguineous -Wound Margin Distinct, Outline Attached -Granulation Amt Medium (34-66%) -Granulation Quality Pale [place] -Slough/Fibrin Yes -Necrosis Amt None Present (0 %) -Necrotic Tissue Type Adherent Slough -Structure Exposed None/Limited to Skin Breakdown -Texture (Ara-wound Skin Appearance) Assessed Scarring -Moisture (Ara-wound Skin Appearance No Abnormality ) Assessed -Color (Ara-wound Skin Appearance) No Abnormality Assessed -Temperature (Ara-wound Skin No Abnormality Appearance) (Pt Warm) -Tenderness on Palpation (Ara-wound No Skin Appearance) -Ulcer Cleansing Rinsed/ Irrigated with Saline -Foul Odor after Cleansing Yes, Due to Product Use -Anesthetic Used 4% Lidocaine Solution [Edema Assessment] -Lower Limb Edema Present NA - Nurse 2 - General Ulcer CM Notes Start: 10/31/18 09:16 Freq: Status: Active Protocol: Activity Type Activity Date Activity User E-Sign Co-Sign Detail Recorded Client Recorded Date Recorded By Document 11/21/18 08:50 DV [id number] 11/21/18 08:53 DV 11/21/18 08:50 Wound Center Nurse 2 [Procedure/Treatment] #4 LEFT ANKLE -Time 08:51 -Correct Patient Yes -Correct Side, Site, Position Yes -Correct Procedure Yes -Procedure Performed Yes -Type of Procedure Debridement -Clinical Debridement Subcutaneous -Post Debridement Size (cm) - Length 6.5 -Post Debridement Size (cm) - Width 7.5 -Post Debridement Size (cm) - Depth 0.3 -Total Square Cm 48.75 -Wound/Ulcer Outcome Not Healed -Ulcer Cleansing Rinsed/ Irrigated with Saline -Foul Odor after Cleansing No -Bioengineered Tissue No -Bleeding Controlled with Pressure -Offloading No -Treatment Response Procedure Tolerated Well [See Physician Procedure note for Specifics] Pain Scale: 0-10 Numeric [Pain] -Is Patient Pain Free? Yes Musculoskeletal: No Tenderness to Palpation of Joints or Extremities, Tenderness - With manipulation of ulcer site Neurological: Sensory exam intact to light touch and pain Psych/Mental Status: Normal Affect, Appropriate Debridement Note Post-Debridement Measurements/Treatment - Nurse 2 - General Ulcer CM Notes Start: 10/31/18 09:16 Freq: Status: Active Protocol: Activity Type Activity Date Activity User E-Sign Co-Sign Detail Recorded Client Recorded Date Recorded By Document 10/31/18 09:27 DV [id number] 10/31/18 09:37 DV Document 11/14/18 10:26 DV [id number] 11/14/18 10:29 DV Document 11/21/18 08:50 DV [id number] 11/21/18 08:53 DV 10/31/18 11/14/18 11/21/18 09:27 10:26 08:50 Wound Center Nurse 2 #6 L Dorsal Cluster -Time 09:29 10:27 -Correct Patient Yes Yes -Correct Side, Site, Position Yes Yes -Correct Procedure Yes -Procedure Performed Yes No -Type of Procedure Debridement -Clinical Debridement Subcutaneous -Post Debridement Size (cm) - Length 1.5 0 -Post Debridement Size (cm) - Width 0.5 0 -Post Debridement Size (cm) - Depth 0.2 0 -Total Square Cm 0.75 0 -Wound/Ulcer Outcome Not Healed Healed- Epithelialized -Ulcer Cleansing Rinsed/ Irrigated with Saline -Foul Odor after Cleansing No -Bioengineered Tissue No -Bleeding Controlled with Pressure -Offloading No -Treatment Response Procedure Tolerated Well #4 LEFT ANKLE -Time 09:30 10:27 08:51 -Correct Patient Yes Yes Yes -Correct Side, Site, Position Yes Yes Yes -Correct Procedure Yes Yes Yes -Procedure Performed Yes Yes Yes -Type of Procedure Debridement Debridement Debridement -Clinical Debridement Subcutaneous Selective Subcutaneous -Post Debridement Size (cm) - Length 7.3 6.5 6.5 -Post Debridement Size (cm) - Width 8.3 8.1 7.5 -Post Debridement Size (cm) - Depth 0.3 0.3 0.3 -Total Square Cm 60.59 52.65 48.75 -Wound/Ulcer Outcome Not Healed Not Healed Not Healed -Ulcer Cleansing Rinsed/ Rinsed/ Rinsed/ Irrigated with Irrigated with Irrigated with Saline Saline Saline -Foul Odor after Cleansing No No No -Bioengineered Tissue No No No -Bleeding Controlled with Pressure Pressure Pressure -Offloading No No No -Treatment Response Procedure Procedure Procedure Tolerated Well Tolerated Well Tolerated Well Pain Scale: 0-10 Numeric Is Patient Pain Free? Yes Yes Wound debrided: Left medial ankle Laterality: Left Type of Debridement: Selective debridement Anesthesia Used: 4% Lidocaine Solution Depth: in the subcutaneous layer Percentage of wound debrided: 100 Instrument Used: 7mm curette Tissue Removed: Adherent slough, fibrin, biofilm, hyperkeratotic tissue Severity: Fat Layer Exposed Amount of bleeding with debridement: Mild Bleeding Controlled with: Pressure Patient tolerated procedure well Assessment/Plan Assessment: Right medial ankle ulcer resolved. Peripheral vascular occlusive disease. Nonhealing ulcers resolved. Edema Plan: Patient was carefully examined and evaluated again today. Selective debridement was performed today as noted in the clinical panel. No aggressive debridement performed. The base was dressed with hydrofera blue, followed by adaptic, and a dry sterile absorptive dressing. This was followed by Tubigrip for compression. Patient is to continue with preidsone 10mg tabs to be taken as directed. He did well with this last week. Three-view x-rays of the left foot and ankle were also ordered previously and they did not demonstrate any acute osseous abnormalities according to the report. Full report is in patient's chart. The importance of offloading the ulcer site was discussed at length with this patient again today. He says he is unable to completely stop working, but he does have the option for light duty. He is to continue with this. I stressed the importance of keeping pressure off of all of the ulcer sites and how this will impact his healing potential. Patient was instructed to be off his feet as much as possible and to keep the lower extremities elevated while not at work. The importance of compression was also discussed with this patient today. LEAS studies were reviewed at a previous patient visit and the results are in the patient's chart. I continue to recommend nutritional supplementation with a high-protein diet at this time in order to help optimize ulcer healing potential. Smoking cessation was stressed again today. All signs and symptoms of local and systemic infection were discussed in great detail with the patient today and he was instructed to go to the emergency room immediately should he notice any of these. All questions were answered to the patient's satisfaction. Patient will follow-up in clinic in 1 week to check on progress, or sooner if needed.
== END 2018-11-28 23:59 ==
LOC: WC 08:15
PROVIDERS: Family Provider Internal Medicine Infectious Disease; PCP Internal Medicine Infectious Disease; Referring Provider Podiatrist; Visit Provider Podiatrist
DX: I87.312 Chronic venous hypertension (idiopathic) with ulcer of left lower extremity (principal); I73.9 Peripheral vascular disease, unspecified; R60.0 Localized edema; L97.322 Non-pressure chronic ulcer of left ankle with fat layer exposed
CPT/HCPCS: 11042; 11045; 97597; 97598; 99214; G0463

== ENCOUNTER 2018-12-26 09:00 | Outpatient (RCR) | payer BC, SELFPAY ==
[2018-11-29 00:57] VITALS: BP 176/94; PULSE 85; RESP 14; TEMP 36.3
[2018-12-05 09:23] VITALS: BP 148/77; PULSE 86; RESP 18; TEMP 36.6; BMI 31.4
--- NOTE | 2018-12-05 10:39 | PN.PCM_ITS ---
(1) Ulcer of left lower extremity with fat layer exposed Status: Acute Current Visit: No Code(s): L97.922 - Non-pressure chronic ulcer of unspecified part of left lower leg with fat layer exposed (2) PVD (peripheral vascular disease) Status: Acute Current Visit: No Code(s): I73.9 - Peripheral vascular disease, unspecified (3) Chronic venous insufficiency Status: Acute Current Visit: No Code(s): I87.2 - Venous insufficiency (chronic) (peripheral) (4) Edema, lower extremity Status: Acute Current Visit: No Code(s): R60.0 - Localized edema (5) Pain of left lower extremity Status: Acute Current Visit: No Code(s): M79.605 - Pain in left leg (6) Delayed wound healing Status: Acute Current Visit: No Code(s): T14.8XXD - Other injury of unspecified body region, subsequent encounter Type of Wound Chief Complaint: ulcers to the left lower leg/foot History of Wound: This is a 51-year-old white male presents to wound healing center with a long-standing history of chronic venous insufficiency, chronic venous hypertension, lower extremity edema, lower extremity pain, and 3 ulcer sites to left lower leg/foot. The patient has had multiple ulcerations in the lower extremities bilaterally, related to his chronic venous disease. He also has chronic venous stasis changes. The skin changes include hyperpigmentation. The patient has previously undergone endovenous laser ablation of the left and right great saphenous vein, the small saphenous vein, the left accessory saphenous vein, and an incompetent left calf manager managed backup services vein located 15 cm p roximal to the left medial malleolus. He is currently wearing graduated compression stockings which are documented to be 20-30 mmHg compression, however, he says the ones he has on are about a year old. He has new ones at home that he has not been wearing. 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 Patient says that he noticed a small area start opening on the top of his left foot about 8-10 months ago. He says he tried to doctor this on his own with old wound care supplies. He says this continued to get slightly worse. Then, about 4 months ago, he noticed the area around the medial malleolus starting to break down, and that has slowly been getting worse too. He also has a small anterior lower leg ulcer. Nothing he has done on his own to treat these areas has helped. He decided he should finally come back to the wound healing center to see if he can get the areas to heal again. Progress of Wound: Base of ulcer to left medial ankle shows some improvement again this week. Some more skin bridging noted. Patient missed appointment last week. Patient also says there is much less drainage. Patient denies any feelings of nausea, vomiting, fever, chills at this time. - Physical Exam Vital Signs Temp Pulse Resp BP 97.8 F 86 18 148/77 H 12/05/18 09:23 12/05/18 09:23 12/05/18 09:23 12/05/18 09:23 General: Alert, Oriented x3, Cooperative, No apparent distress Extremities: Capillary Refill Less than 3 Seconds, No Calf Tenderness - Negative Lakisha and Hough sign, Diminished Peripheral Pulses - DP and PT pulses nonpalpable, Edema - Slight lower extremity edema Skin: Ulcer/ Wound - Ulcer to left medial ankle with fat layer exposed. Slight improvement appreciated to the base of the ulcer again this week. Some more skin bridging is noted. The base is noted to be a mixture of slough, fibrin, granular tissue, biofilm, as well as some surrounding hyperkeratotic tissue. There continues to be no probing to bone, no tracking, no undermining, no surrounding or extending cellulitis, no purulence, no malodor, no increase in warmth to the ulcer site. Wound Measurements and Assessment WC - Nurse 1 - General Ulcer Measurement Start: 12/05/18 09:16 Freq: Status: Active Protocol: Activity Type Activity Date Activity User E-Sign Co-Sign Detail Recorded Client Recorded Date Recorded By Document 12/05/18 09:23 TN [id number] 12/05/18 09:25 TN 12/05/18 09:23 Wound Center Nurse 1 [Ulcer Assessment] #4 LEFT ANKLE -Current Size (cm) - Length 10.8 -Current Size (cm) - Width 8.5 -Current Size (cm) - Depth 0.1 -Total Square Cm 91.80 -Photo Taken No -Epithelialization Small 1-33% -Tunneling No -Undermining/Tunneling No -Circular Undermining No -Exudate Amt Small -Exudate Type Purulent -Wound Margin Flat & Intact -Granulation Amt Small (1-33%) -Granulation Quality Pale [place] Red -Slough/Fibrin Yes -Necrosis Amt Large (67-100%) -Necrotic Tissue Type Adherent Slough -Texture (Ara-wound Skin Appearance) Assessed Scarring -Moisture (Ara-wound Skin Appearance Assessed ) -Color (Ara-wound Skin Appearance) Assessed Hemosiderin Staining -Temperature (Ara-wound Skin No Abnormality Appearance) (Pt Warm) -Tenderness on Palpation (Ara-wound No Skin Appearance) -Ulcer Cleansing Rinsed/ Irrigated with Saline -Foul Odor after Cleansing No -Anesthetic Used 5% Lidocaine Gel [Edema Assessment] -Left Calf (cm) 33.5 -Left Ankle (cm) 25 Musculoskeletal: No Tenderness to Palpation of Joints or Extremities, Tenderness - With manipulation of ulcer site Neurological: Sensory exam intact to light touch and pain Psych/Mental Status: Normal Affect, Appropriate Debridement Note No debridement was completed today Assessment/Plan Assessment: Right medial ankle ulcer resolved. Peripheral vascular occlusive disease. Nonhealing ulcers resolved. Edema Plan: Patient was carefully examined and evaluated again today. No debridement was performed today as noted in the clinical panel. The base was dressed with hydrofera blue, followed by adaptic, and a dry sterile absorptive dressing. This was followed by Tubigrip for compression. Patient is to continue with preidsone 10mg tabs to be taken as directed. New prescription for augmentin started. Cultures taken and sent for aerobic, anaerobic, and mrsa pcr evaluation. Three- view x-rays of the left foot and ankle were also ordered previously and they did not demonstrate any acute osseous abnormalities according to the report. Full report is in patient's chart. The importance of offloading the ulcer site was discussed at length with this patient again today. He says he is unable to completely stop working, but he does have the option for light duty. He is to continue with this. I stressed the importance of keeping pressure off of all of the ulcer sites and how this will impact his healing potential. Patient was instructed to be off his feet as much as possible and to keep the lower extremities elevated while not at work. The importance of compression was also discussed with this patient today. LEAS studies were reviewed at a previous patient visit and the results are in the patient's chart. I continue to recommend nutritional supplementation with a high-protein diet at this time in order to help optimize ulcer healing potential. Smoking cessation was stressed again today. All signs and symptoms of local and systemic infection were discussed in great detail with the patient today and he was instructed to go to the emergency room immediately should he notice any of these. All questions were answered to the patient's satisfaction. Patient will follow-up in clinic in 1 week to check on progress, or sooner if needed.
[2018-12-05 20:45] LABS: M R Staph aureus DNA By PCR POSITIVE (Negative); Probe Check PASS; Staph aureus DNA By PCR POSITIVE (Negative)
[2018-12-12 09:00] VITALS: BP 147/89; PULSE 83; RESP 18; TEMP 37.2; BMI 31.4
--- NOTE | 2018-12-12 10:50 | PCM.WC.PN ---
(1) Ulcer of left lower extremity with fat layer exposed Status: Acute Current Visit: No Code(s): L97.922 - Non-pressure chronic ulcer of unspecified part of left lower leg with fat layer exposed (2) PVD (peripheral vascular disease) Status: Acute Current Visit: No Code(s): I73.9 - Peripheral vascular disease, unspecified (3) Chronic venous insufficiency Status: Acute Current Visit: No Code(s): I87.2 - Venous insufficiency (chronic) (peripheral) (4) Edema, lower extremity Status: Acute Current Visit: No Code(s): R60.0 - Localized edema (5) Pain of left lower extremity Status: Acute Current Visit: No Code(s): M79.605 - Pain in left leg (6) Delayed wound healing Status: Acute Current Visit: No Code(s): T14.8XXD - Other injury of unspecified body region, subsequent encounter Type of Wound Chief Complaint: ulcers to the left lower leg/foot History of Wound: This is a 51-year-old white male presents to wound healing center with a long-standing history of chronic venous insufficiency, chronic venous hypertension, lower extremity edema, lower extremity pain, and 3 ulcer sites to left lower leg/foot. The patient has had multiple ulcerations in the lower extremities bilaterally, related to his chronic venous disease. He also has chronic venous stasis changes. The skin changes include hyperpigmentation. The patient has previously undergone endovenous laser ablation of the left and right great saphenous vein, the small saphenous vein, the left accessory saphenous vein, and an incompetent left calf senior inspector vein located 15 cm proximal to the left medial malleolus. He is currently wearing graduated compression stockings which are documented to be 20-30 mmHg compression, however, he says the ones he has on are about a year old. He has new ones at home that he has not been wearing. 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 Patient says that he noticed a small area start opening on the top of his left foot about 8-10 months ago. He says he tried to doctor this on his own with old wound care supplies. He says this continued to get slightly worse. Then, about 4 months ago, he noticed the area around the medial malleolus starting to break down, and that has slowly been getting worse too. He also has a small anterior lower leg ulcer. Nothing he has done on his own to treat these areas has helped. He decided he should finally come back to the wound healing center to see if he can get the areas to heal again. Progress of Wound: Base of ulcer to left medial ankle stable. Some more skin bridging noted. Patient did not sampler pickup antibiotics last week. Patient denies any feelings of nausea, vomiting, fever, chills at this time. - Physical Exam Vital Signs Temp Pulse Resp BP 98.9 F 83 18 147/89 H 12/12/18 09:00 12/12/18 09:00 12/12/18 09:00 12/12/18 09:00 General: Alert, Oriented x3, Cooperative, No apparent distress Extremities: Capillary Refill Less than 3 Seconds, No Calf Tenderness - Negative Lakisha and Hough sign, Diminished Peripheral Pulses - DP and PT pulses nonpalpable, Edema - Slight lower extremity edema Skin: Ulcer/ Wound - Ulcer to left medial ankle with fat layer exposed. Ulcer stable. Some more skin bridging is noted. The base is noted to be a mixture of slough, fibrin, granular tissue, biofilm, as well as some surrounding hyperkeratotic tissue. There continues to be no probing to bone, no tracking, no undermining, no surrounding or extending cellulitis, no purulence, no malodor, no increase in warmth to the ulcer site. Wound Measurements and Assessment WC - Nurse 1 - General Ulcer Measurement Start: 12/05/18 09:16 Freq: Status: Active Protocol: Activity Type Activity Date Activity User E-Sign Co-Sign Detail Recorded Client Recorded Date Recorded By Document 12/12/18 09:00 AN [email or web address] 12/12/18 09:14 AN 12/12/18 09:00 Wound Center Nurse 1 [Ulcer Assessment] #4 LEFT ANKLE -Current Size (cm) - Length 7.2 -Current Size (cm) - Width 6.0 -Current Size (cm) - Depth 0.3 -Total Square Cm 43.20 -Date of Last Picture (Recall this 12/12/18 field) -Photo Taken Yes -Tunneling No -Undermining/Tunneling No -Circular Undermining No -Classification - Thickness Full Thickness without Exposed Support Structure -Exudate Amt Medium -Exudate Type Serosanguineous -Wound Margin Distinct, Outline Attached -Granulation Amt Medium (34-66%) -Granulation Quality Red -Slough/Fibrin Yes -Necrosis Amt Medium (34-66%) -Necrotic Tissue Type Adherent Slough -Structure Exposed None/Limited to Skin Breakdown -Texture (Aar-wound Skin Appearance) Assessed Localized Edema Scarring -Moisture (Ara-wound Skin Appearance Assessed ) Dry/Scaly -Color (Ara-wound Skin Appearance) Assessed Erythema -Temperature (Ara-wound Skin No Abnormality Appearance) (Pt Warm) -Tenderness on Palpation (Ara-wound Yes Skin Appearance) -Ulcer Cleansing Rinsed/ Irrigated with Saline -Foul Odor after Cleansing No -Anesthetic Used 4% Lidocaine Solution 5% Lidocaine Gel [Edema Assessment] -Left Calf (cm) 34.5 -Left Ankle (cm) 25 WC - Nurse 2 - General Ulcer CM Notes Start: 12/05/18 09:16 Freq: Status: Active Protocol: Activity Type Activity Date Activity User E-Sign Co-Sign Detail Recorded Client Recorded Date Recorded By Document 12/12/18 10:24 DV [id number] 12/12/18 10:26 DV 12/12/18 10:24 Wound Center Nurse 2 [Procedure/Treatment] #4 LEFT ANKLE -Time 10:24 -Correct Patient Yes -Correct Side, Site, Position Yes -Correct Procedure Yes -Procedure Performed Yes -Type of Procedure Debridement -Clinical Debridement Subcutaneous -Post Debridement Size (cm) - Length 7.9 -Post Debridement Size (cm) - Width 7.7 -Post Debridement Size (cm) - Depth 0.3 -Total Square Cm 60.83 -Wound/Ulcer Outcome Not Healed -Ulcer Cleansing Rinsed/ Irrigated with Saline -Foul Odor after Cleansing No -Bioengineered Tissue No -Bleeding Controlled with Pressure -Offloading No -Treatment Response Procedure Tolerated Well [See Physician Procedure note for Specifics] Pain Scale: 0-10 Numeric [Pain] -Is Patient Pain Free? Yes Musculoskeletal: No Tenderness to Palpation of Joints or Extremities, Tenderness - With manipulation of ulcer site Neurological: Sensory exam intact to light touch and pain Psych/Mental Status: Normal Affect, Appropriate Debridement Note Post-Debridement Measurements/Treatment WC - Nurse 2 - General Ulcer CM Notes Start: 12/05/18 09:16 Freq: Status: Active Protocol: Activity Type Activity Date Activity User E-Sign Co-Sign Detail Recorded Client Recorded Date Recorded By Document 12/05/18 10:46 DV [id number] 12/05/18 10:49 DV Document 12/12/18 10:24 DV [id number] 12/12/18 10:26 DV 12/05/18 12/12/18 10:46 10:24 Wound Center Nurse 2 #4 LEFT ANKLE -Time 10:48 10:24 -Correct Patient Yes Yes -Correct Side, Site, Position Yes Yes -Correct Procedure Yes -Procedure Performed No Yes -Type of Procedure Debridement -Clinical Debridement Subcutaneous -Post Debridement Size (cm) - Length 7.0 7.9 -Post Debridement Size (cm) - Width 8.0 7.7 -Post Debridement Size (cm) - Depth 0.3 0.3 -Total Square Cm 56.00 60.83 -Wound/Ulcer Outcome Not Healed Not Healed -Ulcer Cleansing Rinsed/ Rinsed/ Irrigated with Irrigated with Saline Saline -Foul Odor after Cleansing No No -Bioengineered Tissue No No -Bleeding Controlled with Pressure -Offloading Yes No -Treatment Response Procedure Procedure Tolerated Well Tolerated Well Pain Scale: 0-10 Numeric Is Patient Pain Free? Yes Yes No debridement was completed today Assessment/Plan Assessment: Right medial ankle ulcer resolved. Peripheral vascular occlusive disease. Nonhealing ulcers resolved. Edema Plan: Patient was carefully examined and evaluated again today. No debridement was performed today as noted in the clinical panel. The base was dressed with hydrofera blue, followed by adaptic, and a dry sterile absorptive dressing. This was followed by Tubigrip for compression. Patient is to continue with preidsone 10mg tabs to be taken as directed. New prescription for augmentin and doxycycline and prednisone was given to patient again today. He promises to get these filled. Cultures that were taken last week were reviewed. Discussed case with Dr. Farris. Three-view x-rays of the left foot and ankle were also ordered previously and they did not demonstrate any acute osseous abnormalities according to the report. Full report is in patient's chart. The importance of offloading the ulcer site was discussed at length with this patient again today. He says he is unable to completely stop working, but he does have the option for light duty. He is to continue with this. I stressed the importance of keeping pressure off of all of the ulcer sites and how this will impact his healing potential. Patient was instructed to be off his feet as much as possible and to keep the lower extremities elevated while not at work. The importance of compression was also discussed with this patient today. LEAS studies were reviewed at a previous patient visit and the results are in the patient's chart. I continue to recommend nutritional supplementation with a high-protein diet at this time in order to help optimize ulcer healing potential. Smoking cessation was stressed again today. All signs and symptoms of local and systemic infection were discussed in great detail with the patient today and he was instructed to go to the emergency room immediately should he notice any of these. All questions were answered to the patient's satisfaction. Patient will follow-up in clinic in 1 week to check on progress, or sooner if needed.
--- NOTE | 2018-12-12 10:55 | PN.PCM_ITS ---
(1) Ulcer of left lower extremity with fat layer exposed Status: Acute Current Visit: No Code(s): L97.922 - Non-pressure chronic ulcer of unspecified part of left lower leg with fat layer exposed (2) PVD (peripheral vascular disease) Status: Acute Current Visit: No Code(s): I73.9 - Peripheral vascular disease, unspecified (3) Chronic venous insufficiency Status: Acute Current Visit: No Code(s): I87.2 - Venous insufficiency (chronic) (peripheral) (4) Edema, lower extremity Status: Acute Current Visit: No Code(s): R60.0 - Localized edema (5) Pain of left lower extremity Status: Acute Current Visit: No Code(s): M79.605 - Pain in left leg (6) Delayed wound healing Status: Acute Current Visit: No Code(s): T14.8XXD - Other injury of unspecified body region, subsequent encounter Type of Wound Chief Complaint: ulcers to the left lower leg/foot History of Wound: This is a 51-year-old white male presents to wound healing center with a long-standing history of chronic venous insufficiency, chronic venous hypertension, lower extremity edema, lower extremity pain, and 3 ulcer sites to left lower leg/foot. The patient has had multiple ulcerations in the lower extremities bilaterally, related to his chronic venous disease. He also has chronic venous stasis changes. The skin changes include hyperpigmentation. 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 He is currently wearing graduated compression stockings which are documented to be 20-30 mmHg compression, however, he says the ones he has on are about a year old. He has new ones at home that he has not been wearing. 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 Patient says that he noticed a small area start opening on the top of his left foot about 8-10 months ago. He says he tried to doctor this on his own with old wound care supplies. He says this continued to get slightly worse. Then, about 4 months ago, he noticed the area around the medial malleolus starting to break down, and that has slowly been getting worse too. He also has a small anterior lower leg ulcer. Nothing he has done on his own to treat these areas has helped. He decided he should finally come back to the wound healing center to see if he can get the areas to heal again. Progress of Wound: Base of ulcer to left medial ankle stable. Some more skin bridging noted. Patient did not pickle sorter antibiotics last week. Patient denies any feelings of nausea, vomiting, fever, chills at this time. - Physical Exam Vital Signs Temp Pulse Resp BP 98.9 F 83 18 147/89 H 12/12/18 09:00 12/12/18 09:00 12/12/18 09:00 12/12/18 09:00 General: Alert, Oriented x3, Cooperative, No apparent distress Extremities: Capillary Refill Less than 3 Seconds, No Calf Tenderness - Negative Lakisha and Hough sign, Diminished Peripheral Pulses - DP and PT pulses nonpalpable, Edema - Slight lower extremity edema Skin: Ulcer/ Wound - Ulcer to left medial ankle with fat layer exposed. Ulcer stable. Some more skin bridging is noted. The base is noted to be a mixture of slough, fibrin, granular tissue, biofilm, as well as some surrounding hyperkeratotic tissue. There continues to be no probing to bone, no tracking, no undermining, no surrounding or extending cellulitis, no purulence, no malodor, no increase in warmth to the ulcer site. Wound Measurements and Assessment WC - Nurse 1 - General Ulcer Measurement Start: 12/05/18 09:16 Freq: Status: Active Protocol: Activity Type Activity Date Activity User E-Sign Co-Sign Detail Recorded Client Recorded Date Recorded By Document 12/12/18 09:00 AN [id number] 12/12/18 09:14 AN 12/12/18 09:00 Wound Center Nurse 1 [Ulcer Assessment] #4 LEFT ANKLE -Current Size (cm) - Length 7.2 -Current Size (cm) - Width 6.0 -Current Size (cm) - Depth 0.3 -Total Square Cm 43.20 -Date of Last Picture (Recall this 12/12/18 field) -Photo Taken Yes -Tunneling No -Undermining/Tunneling No -Circular Undermining No -Classification - Thickness Full Thickness without Exposed Support Structure -Exudate Amt Medium -Exudate Type Serosanguineous -Wound Margin Distinct, Outline Attached -Granulation Amt Medium (34-66%) -Granulation Quality Red -Slough/Fibrin Yes -Necrosis Amt Medium (34-66%) -Necrotic Tissue Type Adherent Slough -Structure Exposed None/Limited to Skin Breakdown -Texture (Ara-wound Skin Appearance) Assessed Localized Edema Scarring -Moisture (Ara-wound Skin Appearance Assessed ) Dry/Scaly -Color (Ara-wound Skin Appearance) Assessed Erythema -Temperature (Ara-wound Skin No Abnormality Appearance) (Pt Warm) -Tenderness on Palpation (Ara-wound Yes Skin Appearance) -Ulcer Cleansing Rinsed/ Irrigated with Saline -Foul Odor after Cleansing No -Anesthetic Used 4% Lidocaine Solution 5% Lidocaine Gel [Edema Assessment] -Left Calf (cm) 34.5 -Left Ankle (cm) 25 WC - Nurse 2 - General Ulcer CM Notes Start: 12/05/18 09:16 Freq: Status: Active Protocol: Activity Type Activity Date Activity User E-Sign Co-Sign Detail Recorded Client Recorded Date Recorded By Document 12/12/18 10:24 DV [id number] 12/12/18 10:26 DV 12/12/18 10:24 Wound Center Nurse 2 [Procedure/Treatment] #4 LEFT ANKLE -Time 10:24 -Correct Patient Yes -Correct Side, Site, Position Yes -Correct Procedure Yes -Procedure Performed Yes -Type of Procedure Debridement -Clinical Debridement Subcutaneous -Post Debridement Size (cm) - Length 7.9 -Post Debridement Size (cm) - Width 7.7 -Post Debridement Size (cm) - Depth 0.3 -Total Square Cm 60.83 -Wound/Ulcer Outcome Not Healed -Ulcer Cleansing Rinsed/ Irrigated with Saline -Foul Odor after Cleansing No -Bioengineered Tissue No -Bleeding Controlled with Pressure -Offloading No -Treatment Response Procedure Tolerated Well [See Physician Procedure note for Specifics] Pain Scale: 0-10 Numeric [Pain] -Is Patient Pain Free? Yes Musculoskeletal: No Tenderness to Palpation of Joints or Extremities, Tenderness - With manipulation of ulcer site Neurological: Sensory exam intact to light touch and pain Psych/Mental Status: Normal Affect, Appropriate Debridement Note Post-Debridement Measurements/Treatment WC - Nurse 2 - General Ulcer CM Notes Start: 12/05/18 09:16 Freq: Status: Active Protocol: Activity Type Activity Date Activity User E-Sign Co-Sign Detail Recorded Client Recorded Date Recorded By Document 12/05/18 10:46 DV [id number] 12/05/18 10:49 DV Document 12/12/18 10:24 DV [id number] 12/12/18 10:26 DV 12/05/18 12/12/18 10:46 10:24 Wound Center Nurse 2 #4 LEFT ANKLE -Time 10:48 10:24 -Correct Patient Yes Yes -Correct Side, Site, Position Yes Yes -Correct Procedure Yes -Procedure Performed No Yes -Type of Procedure Debridement -Clinical Debridement Subcutaneous -Post Debridement Size (cm) - Length 7.0 7.9 -Post Debridement Size (cm) - Width 8.0 7.7 -Post Debridement Size (cm) - Depth 0.3 0.3 -Total Square Cm 56.00 60.83 -Wound/Ulcer Outcome Not Healed Not Healed -Ulcer Cleansing Rinsed/ Rinsed/ Irrigated with Irrigated with Saline Saline -Foul Odor after Cleansing No No -Bioengineered Tissue No No -Bleeding Controlled with Pressure -Offloading Yes No -Treatment Response Procedure Procedure Tolerated Well Tolerated Well Pain Scale: 0-10 Numeric Is Patient Pain Free? Yes Yes No debridement was completed today Assessment/Plan Assessment: Right medial ankle ulcer resolved. Peripheral vascular occlusive disease. Nonhealing ulcers resolved. Edema Plan: Patient was carefully examined and evaluated again today. No debridement was performed today as noted in the clinical panel. The base was dressed with hydrofera blue, followed by adaptic, and a dry sterile absorptive dressing. This was followed by Tubigrip for compression. Patient is to continue with preidsone 10mg tabs to be taken as directed. New prescription for augmentin and doxycycline and prednisone was given to patient again today. He promises to get these filled. Cultures that were taken last week were reviewed. Discussed case with Dr. Farris. Three-view x-rays of the left foot and ankle were also ordered previously and they did not demonstrate any acute osseous abnormalities according to the report. Full report is in patient's chart. The importance of offloading the ulcer site was discussed at length with this patient again today. He says he is unable to completely stop working, but he does have the option for light duty. He is to continue with this. I stressed the importance of keeping pressure off of all of the ulcer sites and how this will impact his healing potential. Patient was instructed to be off his feet as much as possible and to keep the lower extremities elevated while not at work. The importance of compression was also discussed with this patient today. LEAS studies were reviewed at a previous patient visit and the results are in the patient's chart. I continue to recommend nutritional supplementation with a high-protein diet at this time in order to help optimize ulcer healing potential. Smoking cessation was stressed again today. All signs and symptoms of local and systemic infection were discussed in great detail with the patient today and he was instructed to go to the emergency room immediately should he notice any of these. All questions were answered to the patient's satisfaction. Patient will follow-up in clinic in 1 week to check on progress, or sooner if needed.
[2018-12-19 09:01] VITALS: BP 157/94; PULSE 85; RESP 18; TEMP 36.6; BMI 31.4
--- NOTE | 2018-12-19 09:25 | PN.PCM_ITS ---
(1) Ulcer of left lower extremity with fat layer exposed Status: Acute Current Visit: No Code(s): L97.922 - Non-pressure chronic ulcer of unspecified part of left lower leg with fat layer exposed (2) PVD (peripheral vascular disease) Status: Acute Current Visit: No Code(s): I73.9 - Peripheral vascular disease, unspecified (3) Chronic venous insufficiency Status: Acute Current Visit: No Code(s): I87.2 - Venous insufficiency (chronic) (peripheral) (4) Edema, lower extremity Status: Acute Current Visit: No Code(s): R60.0 - Localized edema (5) Pain of left lower extremity Status: Acute Current Visit: No Code(s): M79.605 - Pain in left leg (6) Delayed wound healing Status: Acute Current Visit: No Code(s): T14.8XXD - Other injury of unspecified body region, subsequent encounter Type of Wound Chief Complaint: ulcers to the left lower leg/foot History of Wound: This is a 51-year-old white male presents to wound healing center with a long-standing history of chronic venous insufficiency, chronic venous hypertension, lower extremity edema, lower extremity pain, and 3 ulcer sites to left lower leg/foot. The patient has had multiple ulcerations in the lower extremities bilaterally, related to his chronic venous disease. He also has chronic venous stasis changes. The skin changes include hyperpigmentation. The patient has previously undergone endovenous laser ablation of the left and right great saphenous vein, the small saphenous vein, the left accessory saphenous vein, and an incompetent left calf production grader vein located 15 cm p roximal to the left medial malleolus. He is currently wearing graduated compression stockings which are documented to be 20-30 mmHg compression, however, he says the ones he has on are about a year old. He has new ones at home that he has not been wearing. 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 Patient says that he noticed a small area start opening on the top of his left foot about 8-10 months ago. He says he tried to doctor this on his own with old wound care supplies. He says this continued to get slightly worse. Then, about 4 months ago, he noticed the area around the medial malleolus starting to break down, and that has slowly been getting worse too. He also has a small anterior lower leg ulcer. Nothing he has done on his own to treat these areas has helped. He decided he should finally come back to the wound healing center to see if he can get the areas to heal again. Progress of Wound: Base of ulcer to left medial ankle improved since last week. Some more skin bridging noted. Patient has taken antibiotics and prednisone as prescribed over the last week. Patient denies any feelings of nausea, vomiting, fever, chills at this time. - Physical Exam Vital Signs Temp Pulse Resp BP 97.9 F 85 18 157/94 H 12/19/18 09:01 12/19/18 09:01 12/19/18 09:01 12/19/18 09:01 General: Alert, Oriented x3, Cooperative, No apparent distress Extremities: Capillary Refill Less than 3 Seconds, No Calf Tenderness - Negative Lakisha and Hough sign, Diminished Peripheral Pulses - DP and PT pulses nonpalpable, Edema - Slight lower extremity edema Skin: Ulcer/ Wound - Ulcer to left medial ankle with fat layer exposed. Ulcer base shows slight improvement this week. Some more skin bridging is noted. The base is noted to be a mixture of slough, fibrin, granular tissue, biofilm, as well as some surrounding hyperkeratotic tissue. There continues to be no probing to bone, no tracking, no undermining, no surrounding or extending cellulitis, no purulence, no malodor, no increase in warmth to the ulcer site. Wound Measurements and Assessment WC - Nurse 1 - General Ulcer Measurement Start: 12/05/18 09:16 Freq: Status: Active Protocol: Activity Type Activity Date Activity User E-Sign Co-Sign Detail Recorded Client Recorded Date Recorded By Document 12/19/18 09:01 DL [id number] 12/19/18 09:10 DL 12/19/18 09:01 Wound Center Nurse 1 [Ulcer Assessment] #4 LEFT ANKLE -Current Size (cm) - Length 9 -Current Size (cm) - Width 9 -Current Size (cm) - Depth 0.5 -Total Square Cm 81 -Photo Taken No -Exudate Amt Medium -Exudate Type Serosanguineous -Wound Margin Thickened -Granulation Amt Medium (34-66%) -Granulation Quality Red -Necrosis Amt Medium (34-66%) -Necrotic Tissue Type Adherent Slough -Structure Exposed N/A -Texture (Ara-wound Skin Appearance) Localized Edema Scarring -Moisture (Ara-wound Skin Appearance Dry/Scaly ) -Color (Ara-wound Skin Appearance) Hemosiderin Staining -Temperature (Ara-wound Skin No Abnormality Appearance) (Pt Warm) -Ulcer Cleansing Rinsed/ Irrigated with Saline -Foul Odor after Cleansing No -Anesthetic Used 4% Lidocaine Solution [Edema Assessment] -Left Calf (cm) 33 -Left Ankle (cm) 23 Musculoskeletal: Tenderness - With manipulation of ulcer site Neurological: Sensory exam intact to light touch and pain Psych/Mental Status: Normal Affect, Appropriate Debridement Note Post-Debridement Measurements/Treatment WC - Nurse 2 - General Ulcer CM Notes Start: 12/05/18 09:16 Freq: Status: Active Protocol: Activity Type Activity Date Activity User E-Sign Co-Sign Detail Recorded Client Recorded Date Recorded By Document 12/05/18 10:46 DV [id number] 12/05/18 10:49 DV Document 12/12/18 10:24 DV [id number] 12/12/18 10:26 DV 12/05/18 12/12/18 10:46 10:24 Wound Center Nurse 2 #4 LEFT ANKLE -Time 10:48 10:24 -Correct Patient Yes Yes -Correct Side, Site, Position Yes Yes -Correct Procedure Yes -Procedure Performed No Yes -Type of Procedure Debridement -Clinical Debridement Subcutaneous -Post Debridement Size (cm) - Length 7.0 7.9 -Post Debridement Size (cm) - Width 8.0 7.7 -Post Debridement Size (cm) - Depth 0.3 0.3 -Total Square Cm 56.00 60.83 -Wound/Ulcer Outcome Not Healed Not Healed -Ulcer Cleansing Rinsed/ Rinsed/ Irrigated with Irrigated with Saline Saline -Foul Odor after Cleansing No No -Bioengineered Tissue No No -Bleeding Controlled with Pressure -Offloading Yes No -Treatment Response Procedure Procedure Tolerated Well Tolerated Well Pain Scale: 0-10 Numeric Is Patient Pain Free? Yes Yes No debridement was completed today Assessment/Plan Assessment: Right medial ankle ulcer resolved. Peripheral vascular occlusive disease. Nonhealing ulcers resolved. Edema Plan: Patient was carefully examined and evaluated again today. No debridement was performed again today. The base was dressed with hydrofera blue, followed by adaptic, and a dry sterile absorptive dressing. This was followed by Tubigrip for compression. Patient is to continue with preidsone 10mg tabs, augmentin, and doxycycline as instructed. He has had no side effects with these. Three-view x-rays of the left foot and ankle were also ordered previously and they did not demonstrate any acute osseous abnormalities according to the report. Full report is in patient's chart. The importance of offloading the ulcer site was discussed at length with this patient again today. He says he is unable to completely stop working, but he does have the option for light duty. He is to continue with this. I stressed the importance of keeping pressure off of all of the ulcer sites and how this will impact his healing potential. Patient was instructed to be off his feet as much as possible and to keep the lower extremities elevated while not at work. The importance of compression was also discussed with this patient today. LEAS studies were reviewed at a previous patient visit and the results are in the patient's chart. I continue to recommend nutritional supplementation with a high-protein diet at this time in order to help optimize ulcer healing potential. Smoking cessation was stressed again today. All signs and symptoms of local and systemic infection were discussed in great detail with the patient today and he was instructed to go to the emergency room immediately should he notice any of these. All questions were answered to the patient's satisfaction. Patient will follow-up in clinic in 1 week to check on progress, or sooner if needed.
[2018-12-26 09:06] VITALS: BP 146/85; PULSE 93; RESP 18; BMI 31.4
--- NOTE | 2018-12-26 09:52 | PCM.WC.PN ---
(1) Ulcer of left lower extremity with fat layer exposed Status: Acute Current Visit: No Code(s): L97.922 - Non-pressure chronic ulcer of unspecified part of left lower leg with fat layer exposed (2) PVD (peripheral vascular disease) Status: Acute Current Visit: No Code(s): I73.9 - Peripheral vascular disease, unspecified (3) Chronic venous insufficiency Status: Acute Current Visit: No Code(s): I87.2 - Venous insufficiency (chronic) (peripheral) (4) Edema, lower extremity Status: Acute Current Visit: No Code(s): R60.0 - Localized edema (5) Pain of left lower extremity Status: Acute Current Visit: No Code(s): M79.605 - Pain in left leg (6) Delayed wound healing Status: Acute Current Visit: No Code(s): T14.8XXD - Other injury of unspecified body region, subsequent encounter Type of Wound Chief Complaint: ulcers to the left lower leg/foot History of Wound: This is a 51-year-old white male presents to wound healing center with a long-standing history of chronic venous insufficiency, chronic venous hypertension, lower extremity edema, lower extremity pain, and 3 ulcer sites to left lower leg/foot. The patient has had multiple ulcerations in the lower extremities bilaterally, related to his chronic venous disease. He also has chronic venous stasis changes. The skin changes include hyperpigmentation. The patient has previously undergone endovenous laser ablation of the left and right great saphenous vein, the small saphenous vein, the left accessory saphenous vein, and an incompetent left calf court stenographer vein located 15 cm proximal to the left medial malleolus. He is currently wearing graduated compression stockings which are documented to be 20-30 mmHg compression, however, he says the ones he has on are about a year old. He has new ones at home that he has not been wearing. 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 Patient says that he noticed a small area start opening on the top of his left foot about 8-10 months ago. He says he tried to doctor this on his own with old wound care supplies. He says this continued to get slightly worse. Then, about 4 months ago, he noticed the area around the medial malleolus starting to break down, and that has slowly been getting worse too. He also has a small anterior lower leg ulcer. Nothing he has done on his own to treat these areas has helped. He decided he should finally come back to the wound healing center to see if he can get the areas to heal again. Progress of Wound: Base of ulcer to left medial ankle shows some slightly more improvement as well as some areas of continued skin bridging. Patient has taken antibiotics and prednisone as prescribed over the last week. Patient denies any feelings of nausea, vomiting, fever, chills at this time. - Physical Exam Vital Signs Temp Pulse Resp BP 97.9 F 93 18 146/85 H 12/19/18 09:01 12/26/18 09:06 12/26/18 09:06 12/26/18 09:06 General: Alert, Oriented x3, Cooperative, No apparent distress Extremities: Capillary Refill Less than 3 Seconds, No Calf Tenderness - Negative Lakisha and Hough sign, Diminished Peripheral Pulses - DP and PT pulses nonpalpable, Edema - Slight lower extremity edema Skin: Ulcer/ Wound - Ulcer to left medial ankle with fat layer exposed. Ulcer base shows some continued skin bridging this week. The base is noted to be a mixture of slough, fibrin, granular tissue, biofilm, as well as some surrounding hyperkeratotic tissue. There continues to be no probing to bone, no tracking, no undermining, no surrounding or extending cellulitis, no purulence, no malodor, no increase in warmth to the ulcer site. Wound Measurements and Assessment WC - Nurse 1 - General Ulcer Measurement Start: 12/05/18 09:16 Freq: Status: Active Protocol: Activity Type Activity Date Activity User E-Sign Co-Sign Detail Recorded Client Recorded Date Recorded By Document 12/26/18 09:06 MT [id number] 12/26/18 09:13 PA 12/26/18 09:06 Wound Center Nurse 1 [Ulcer Assessment] #4 LEFT ANKLE -Combined with other wound No -Current Size (cm) - Length 10.8 -Current Size (cm) - Width 7.0 -Current Size (cm) - Depth 0.2 -Total Square Cm 75.60 -Photo Taken No -Tunneling No -Undermining/Tunneling No -Circular Undermining No -Exudate Amt Small -Exudate Type Serosanguineous -Wound Margin Thickened & Rolled Under -Granulation Amt Medium (34-66%) -Granulation Quality Pale [place] -Necrosis Amt Medium (34-66%) -Necrotic Tissue Type Adherent Slough -Texture (Ara-wound Skin Appearance) Assessed -Moisture (Ara-wound Skin Appearance Assessed ) Dry/Scaly -Color (Ara-wound Skin Appearance) Assessed -Temperature (Ara-wound Skin No Abnormality Appearance) (Pt Warm) -Tenderness on Palpation (Ara-wound No Skin Appearance) -Ulcer Cleansing Rinsed/ Irrigated with Saline -Foul Odor after Cleansing No -Anesthetic Used 4% Lidocaine Solution [Edema Assessment] -Left Calf (cm) 33 -Left Ankle (cm) 27 WC - Nurse 2 - General Ulcer CM Notes Start: 12/05/18 09:16 Freq: Status: Active Protocol: Activity Type Activity Date Activity User E-Sign Co-Sign Detail Recorded Client Recorded Date Recorded By Document 12/26/18 09:30 DV [id number] 12/26/18 09:35 DV 12/26/18 09:30 Wound Center Nurse 2 [Procedure/Treatment] #4 LEFT ANKLE -Time 09:32 -Correct Patient Yes -Correct Side, Site, Position Yes -Correct Procedure Yes -Procedure Performed Yes -Type of Procedure Debridement -Clinical Debridement Subcutaneous -Post Debridement Size (cm) - Length 8.0 -Post Debridement Size (cm) - Width 8.0 -Post Debridement Size (cm) - Depth 0.3 -Total Square Cm 64.00 -Wound/Ulcer Outcome Not Healed -Ulcer Cleansing Rinsed/ Irrigated with Saline -Foul Odor after Cleansing No -Bioengineered Tissue No -Bleeding Controlled with Pressure -Offloading No -Treatment Response Procedure Tolerated Well [See Physician Procedure note for Specifics] Pain Scale: 0-10 Numeric [Pain] -Is Patient Pain Free? Yes Musculoskeletal: Tenderness - Some slight tenderness with manipulation of ulcer site Neurological: Sensory exam intact to light touch and pain Psych/Mental Status: Normal Affect, Appropriate Debridement Note Post-Debridement Measurements/Treatment - Nurse 2 - General Ulcer CM Notes Start: 12/05/18 09:16 Freq: Status: Active Protocol: Activity Type Activity Date Activity User E-Sign Co-Sign Detail Recorded Client Recorded Date Recorded By Document 12/05/18 10:46 DV [id number] 12/05/18 10:49 DV Document 02/14/19 10:24 DV [id number] 12/12/18 10:26 DV Document 12/19/18 09:21 DV [id number] 12/19/18 09:27 DV Document 12/26/18 09:30 DV [id number] 12/26/18 09:35 DV 12/05/18 12/12/18 12/19/18 10:46 10:24 09:21 Wound Center Nurse 2 #4 LEFT ANKLE -Time 10:48 10:24 09:22 -Correct Patient Yes Yes Yes -Correct Side, Site, Position Yes Yes Yes -Correct Procedure Yes Yes -Procedure Performed No Yes Yes -Type of Procedure Debridement Debridement -Clinical Debridement Subcutaneous Subcutaneous -Post Debridement Size (cm) - Length 7.0 7.9 8.0 -Post Debridement Size (cm) - Width 8.0 7.7 8.0 -Post Debridement Size (cm) - Depth 0.3 0.3 0.3 -Total Square Cm 56.00 60.83 64.00 -Wound/Ulcer Outcome Not Healed Not Healed Not Healed -Ulcer Cleansing Rinsed/ Rinsed/ Rinsed/ Irrigated with Irrigated with Irrigated with Saline Saline Saline -Foul Odor after Cleansing No No No -Bioengineered Tissue No No No -Bleeding Controlled with Pressure Pressure -Offloading Yes No No -Treatment Response Procedure Procedure Procedure Tolerated Well Tolerated Well Tolerated Well Pain Scale: 0-10 Numeric Is Patient Pain Free? Yes Yes Yes 12/26/18 09:30 Wound Center Nurse 2 #4 LEFT ANKLE -Time 09:32 -Correct Patient Yes -Correct Side, Site, Position Yes -Correct Procedure Yes -Procedure Performed Yes -Type of Procedure Debridement -Clinical Debridement Subcutaneous -Post Debridement Size (cm) - Length 8.0 -Post Debridement Size (cm) - Width 8.0 -Post Debridement Size (cm) - Depth 0.3 -Total Square Cm 64.00 -Wound/Ulcer Outcome Not Healed -Ulcer Cleansing Rinsed/ Irrigated with Saline -Foul Odor after Cleansing No -Bioengineered Tissue No -Bleeding Controlled with Pressure -Offloading No -Treatment Response Procedure Tolerated Well Pain Scale: 0-10 Numeric Is Patient Pain Free? Yes No debridement was completed today Assessment/Plan Assessment: Right medial ankle ulcer resolved. Peripheral vascular occlusive disease. Nonhealing ulcers resolved. Edema Plan: Patient was carefully examined and evaluated again today. No debridement was performed again today. Some areas of slough were gently removed using moistened 4x4 gauze. The base was dressed with hydrofera blue, followed by adaptic, and a dry sterile absorptive dressing. This was followed by Tubigrip for compression. Patient is to continue with preidsone 10mg tabs, augmentin, and doxycycline as instructed. He has had no side effects with these. Three-view x-rays of the left foot and ankle were also ordered previously and they did not demonstrate any acute osseous abnormalities according to the report. Full report is in patient's chart. The importance of offloading the ulcer site was discussed at length with this patient again today. He says he is unable to completely stop working, but he does have the option for light duty. He is to continue with this. I stressed the importance of keeping pressure off of all of the ulcer sites and how this will impact his healing potential. Patient was instructed to be off his feet as much as possible and to keep the lower extremities elevated while not at work. The importance of compression was also discussed with this patient today. LEAS studies were reviewed at a previous patient visit and the results are in the patient's chart. I continue to recommend nutritional supplementation with a high-protein diet at this time in order to help optimize ulcer healing potential. Smoking cessation was stressed again today. All signs and symptoms of local and systemic infection were discussed in great detail with the patient today and he was instructed to go to the emergency room immediately should he notice any of these. All questions were answered to the patient's satisfaction. Patient will follow-up in clinic in 1 week to check on progress, or sooner if needed.
--- NOTE | 2018-12-26 09:57 | PN.PCM_ITS ---
(1) Ulcer of left lower extremity with fat layer exposed Status: Acute Current Visit: No Code(s): L97.922 - Non-pressure chronic ulcer of unspecified part of left lower leg with fat layer exposed (2) PVD (peripheral vascular disease) Status: Acute Current Visit: No Code(s): I73.9 - Peripheral vascular disease, unspecified (3) Chronic venous insufficiency Status: Acute Current Visit: No Code(s): I87.2 - Venous insufficiency (chronic) (peripheral) (4) Edema, lower extremity Status: Acute Current Visit: No Code(s): R60.0 - Localized edema (5) Pain of left lower extremity Status: Acute Current Visit: No Code(s): M79.605 - Pain in left leg (6) Delayed wound healing Status: Acute Current Visit: No Code(s): T14.8XXD - Other injury of unspecified body region, subsequent encounter Type of Wound Chief Complaint: ulcers to the left lower leg/foot History of Wound: This is a 51-year-old white male presents to wound healing center with a long-standing history of chronic venous insufficiency, chronic venous hypertension, lower extremity edema, lower extremity pain, and 3 ulcer sites to left lower leg/foot. The patient has had multiple ulcerations in the lower extremities bilaterally, related to his chronic venous disease. He also has chronic venous stasis changes. The skin changes include hyperpigmentation. 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 He is currently wearing graduated compression stockings which are documented to be 20-30 mmHg compression, however, he says the ones he has on are about a year old. He has new ones at home that he has not been wearing. 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 Patient says that he noticed a small area start opening on the top of his left foot about 8-10 months ago. He says he tried to doctor this on his own with old wound care supplies. He says this continued to get slightly worse. Then, about 4 months ago, he noticed the area around the medial malleolus starting to break down, and that has slowly been getting worse too. He also has a small anterior lower leg ulcer. Nothing he has done on his own to treat these areas has helped. He decided he should finally come back to the wound healing center to see if he can get the areas to heal again. Progress of Wound: Base of ulcer to left medial ankle shows some slightly more improvement as well as some areas of continued skin bridging. Patient has taken antibiotics and prednisone as prescribed over the last week. Patient denies any feelings of nausea, vomiting, fever, chills at this time. - Physical Exam Vital Signs Temp Pulse Resp BP 97.9 F 93 18 146/85 H 12/19/18 09:01 12/26/18 09:06 12/26/18 09:06 12/26/18 09:06 General: Alert, Oriented x3, Cooperative, No apparent distress Extremities: Capillary Refill Less than 3 Seconds, No Calf Tenderness - Negative Lakisha and Hough sign, Diminished Peripheral Pulses - DP and PT pulses nonpalpable, Edema - Slight lower extremity edema Skin: Ulcer/ Wound - Ulcer to left medial ankle with fat layer exposed. Ulcer base shows some continued skin bridging this week. The base is noted to be a mixture of slough, fibrin, granular tissue, biofilm, as well as some surrounding hyperkeratotic tissue. There continues to be no probing to bone, no tracking, no undermining, no surrounding or extending cellulitis, no purulence, no malodor, no increase in warmth to the ulcer site. Wound Measurements and Assessment WC - Nurse 1 - General Ulcer Measurement Start: 12/05/18 09:16 Freq: Status: Active Protocol: Activity Type Activity Date Activity User E-Sign Co-Sign Detail Recorded Client Recorded Date Recorded By Document 12/26/18 09:06 TX [id number] 12/26/18 09:13 [place] 12/26/18 09:06 Wound Center Nurse 1 [Ulcer Assessment] #4 LEFT ANKLE -Combined with other wound No -Current Size (cm) - Length 10.8 -Current Size (cm) - Width 7.0 -Current Size (cm) - Depth 0.2 -Total Square Cm 75.60 -Photo Taken No -Tunneling No -Undermining/Tunneling No -Circular Undermining No -Exudate Amt Small -Exudate Type Serosanguineous -Wound Margin Thickened & Rolled Under -Granulation Amt Medium (34-66%) -Granulation Quality Pale [place] -Necrosis Amt Medium (34-66%) -Necrotic Tissue Type Adherent Slough -Texture (Ara-wound Skin Appearance) Assessed -Moisture (Ara-wound Skin Appearance Assessed ) Dry/Scaly -Color (Ara-wound Skin Appearance) Assessed -Temperature (Ara-wound Skin No Abnormality Appearance) (Pt Warm) -Tenderness on Palpation (Ara-wound No Skin Appearance) -Ulcer Cleansing Rinsed/ Irrigated with Saline -Foul Odor after Cleansing No -Anesthetic Used 4% Lidocaine Solution [Edema Assessment] -Left Calf (cm) 33 -Left Ankle (cm) 27 WC - Nurse 2 - General Ulcer CM Notes Start: 12/05/18 09:16 Freq: Status: Active Protocol: Activity Type Activity Date Activity User E-Sign Co-Sign Detail Recorded Client Recorded Date Recorded By Document 12/26/18 09:30 DV [id number] 12/26/18 09:35 DV 12/26/18 09:30 Wound Center Nurse 2 [Procedure/Treatment] #4 LEFT ANKLE -Time 09:32 -Correct Patient Yes -Correct Side, Site, Position Yes -Correct Procedure Yes -Procedure Performed Yes -Type of Procedure Debridement -Clinical Debridement Subcutaneous -Post Debridement Size (cm) - Length 8.0 -Post Debridement Size (cm) - Width 8.0 -Post Debridement Size (cm) - Depth 0.3 -Total Square Cm 64.00 -Wound/Ulcer Outcome Not Healed -Ulcer Cleansing Rinsed/ Irrigated with Saline -Foul Odor after Cleansing No -Bioengineered Tissue No -Bleeding Controlled with Pressure -Offloading No -Treatment Response Procedure Tolerated Well [See Physician Procedure note for Specifics] Pain Scale: 0-10 Numeric [Pain] -Is Patient Pain Free? Yes Musculoskeletal: Tenderness - Some slight tenderness with manipulation of ulcer site Neurological: Sensory exam intact to light touch and pain Psych/Mental Status: Normal Affect, Appropriate Debridement Note Post-Debridement Measurements/Treatment - Nurse 2 - General Ulcer CM Notes Start: 12/05/18 09:16 Freq: Status: Active Protocol: Activity Type Activity Date Activity User E-Sign Co-Sign Detail Recorded Client Recorded Date Recorded By Document 12/05/18 10:46 DV [id number] 12/05/18 10:49 DV Document 12/12/18 10:24 DV [id number] 12/12/18 10:26 DV Document 12/19/18 09:21 DV [id number] 12/19/18 09:27 DV Document 12/26/18 09:30 DV [id number] 12/26/18 09:35 DV 12/05/18 12/12/18 12/19/18 10:46 10:24 09:21 Wound Center Nurse 2 #4 LEFT ANKLE -Time 10:48 10:24 09:22 -Correct Patient Yes Yes Yes -Correct Side, Site, Position Yes Yes Yes -Correct Procedure Yes Yes -Procedure Performed No Yes Yes -Type of Procedure Debridement Debridement -Clinical Debridement Subcutaneous Subcutaneous -Post Debridement Size (cm) - Length 7.0 7.9 8.0 -Post Debridement Size (cm) - Width 8.0 7.7 8.0 -Post Debridement Size (cm) - Depth 0.3 0.3 0.3 -Total Square Cm 56.00 60.83 64.00 -Wound/Ulcer Outcome Not Healed Not Healed Not Healed -Ulcer Cleansing Rinsed/ Rinsed/ Rinsed/ Irrigated with Irrigated with Irrigated with Saline Saline Saline -Foul Odor after Cleansing No No No -Bioengineered Tissue No No No -Bleeding Controlled with Pressure Pressure -Offloading Yes No No -Treatment Response Procedure Procedure Procedure Tolerated Well Tolerated Well Tolerated Well Pain Scale: 0-10 Numeric Is Patient Pain Free? Yes Yes Yes 12/26/18 09:30 Wound Center Nurse 2 #4 LEFT ANKLE -Time 09:32 -Correct Patient Yes -Correct Side, Site, Position Yes -Correct Procedure Yes -Procedure Performed Yes -Type of Procedure Debridement -Clinical Debridement Subcutaneous -Post Debridement Size (cm) - Length 8.0 -Post Debridement Size (cm) - Width 8.0 -Post Debridement Size (cm) - Depth 0.3 -Total Square Cm 64.00 -Wound/Ulcer Outcome Not Healed -Ulcer Cleansing Rinsed/ Irrigated with Saline -Foul Odor after Cleansing No -Bioengineered Tissue No -Bleeding Controlled with Pressure -Offloading No -Treatment Response Procedure Tolerated Well Pain Scale: 0-10 Numeric Is Patient Pain Free? Yes No debridement was completed today Assessment/Plan Assessment: Right medial ankle ulcer resolved. Peripheral vascular occlusive disease. Nonhealing ulcers resolved. Edema Plan: Patient was carefully examined and evaluated again today. No debridement was performed again today. Some areas of slough were gently removed using moistened 4x4 gauze. The base was dressed with hydrofera blue, followed by adaptic, and a dry sterile absorptive dressing. This was followed by Tubigrip for compression. Patient is to continue with preidsone 10mg tabs, augmentin, and doxycycline as instructed. He has had no side effects with these. Three-view x-rays of the left foot and ankle were also ordered previously and they did not demonstrate any acute osseous abnormalities according to the report. Full report is in patient's chart. The importance of offloading the ulcer site was discussed at length with this patient again today. He says he is unable to completely stop working, but he does have the option for light duty. He is to continue with this. I stressed the importance of keeping pressure off of all of the ulcer sites and how this will impact his healing potential. Patient was instructed to be off his feet as much as possible and to keep the lower extremities elevated while not at work. The importance of compression was also discussed with this patient today. LEAS studies were reviewed at a previous patient visit and the results are in the patient's chart. I continue to recommend nutritional supplementation with a high-protein diet at this time in order to help optimize ulcer healing potential. Smoking cessation was stressed again today. All signs and symptoms of local and systemic infection were discussed in great detail with the patient today and he was instructed to go to the emergency room immediately should he notice any of these. All questions were answered to the patient's satisfaction. Patient will follow-up in clinic in 1 week to check on progress, or sooner if needed.
== END 2018-12-26 23:59 ==
LOC: WC 09:00
PROVIDERS: Family Provider Internal Medicine Infectious Disease; PCP Internal Medicine Infectious Disease; Referring Provider Podiatrist; Visit Provider Podiatrist
DX: I73.9 Peripheral vascular disease, unspecified (principal); L97.322 Non-pressure chronic ulcer of left ankle with fat layer exposed; R60.0 Localized edema
CPT/HCPCS: 11042; 11045; 87070; 87075; 87077; 87186; 87205; 87640; 99213; 99214; G0463

== ENCOUNTER 2019-01-23 09:00 | Outpatient (RCR) | payer BC, SELFPAY ==
[2018-12-27 00:47] VITALS: BP 146/85; PULSE 93; RESP 18; TEMP 36.6
[2019-01-02 09:08] VITALS: BP 136/91; PULSE 89; RESP 16; TEMP 36.1; BMI 31.4
--- NOTE | 2019-01-02 09:49 | PN.PCM_ITS ---
(1) Ulcer of left lower extremity with fat layer exposed Status: Acute Current Visit: No Code(s): L97.922 - Non-pressure chronic ulcer of unspecified part of left lower leg with fat layer exposed (2) PVD (peripheral vascular disease) Status: Acute Current Visit: No Code(s): I73.9 - Peripheral vascular disease, unspecified (3) Chronic venous insufficiency Status: Acute Current Visit: No Code(s): I87.2 - Venous insufficiency (chronic) (peripheral) (4) Edema, lower extremity Status: Acute Current Visit: No Code(s): R60.0 - Localized edema (5) Pain of left lower extremity Status: Acute Current Visit: No Code(s): M79.605 - Pain in left leg (6) Delayed wound healing Status: Acute Current Visit: No Code(s): T14.8XXD - Other injury of unspecified body region, subsequent encounter Type of Wound Chief Complaint: ulcers to the left lower leg/foot History of Wound: This is a 51-year-old white male presents to wound healing center with a long-standing history of chronic venous insufficiency, chronic venous hypertension, lower extremity edema, lower extremity pain, and 3 ulcer sites to left lower leg/foot. The patient has had multiple ulcerations in the lower extremities bilaterally, related to his chronic venous disease. He also has chronic venous stasis changes. The skin changes include hyperpigmentation. 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 He is currently wearing graduated compression stockings which are documented to be 20-30 mmHg compression, however, he says the ones he has on are about a year old. He has new ones at home that he has not been wearing. 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 Patient says that he noticed a small area start opening on the top of his left foot about 8-10 months ago. He says he tried to doctor this on his own with old wound care supplies. He says this continued to get slightly worse. Then, about 4 months ago, he noticed the area around the medial malleolus starting to break down, and that has slowly been getting worse too. He also has a small anterior lower leg ulcer. Nothing he has done on his own to treat these areas has helped. He decided he should finally come back to the wound healing center to see if he can get the areas to heal again. Progress of Wound: Continued skin bridging noted with change of ulcer shape. Patient has taken antibiotics as prescribed over the last week. Patient denies any feelings of nausea, vomiting, fever, chills at this time. - Physical Exam Vital Signs Temp Pulse Resp BP 97.0 F L 89 16 136/91 H 01/02/19 09:08 01/02/19 09:08 01/02/19 09:08 01/02/19 09:08 General: Alert, Oriented x3, Cooperative, No apparent distress Extremities: Capillary Refill Less than 3 Seconds, No Calf Tenderness - Negative Lakisha and Hough sign, Diminished Peripheral Pulses - DP and PT pulses nonpalpable, Edema - Slight lower extremity edema Skin: Ulcer/ Wound - Ulcer to left medial ankle with fat layer exposed. Ulcer base shows some continued skin bridging this week and change of ulcer shape. The base is noted to be a mixture of slough, fibrin, granular tissue, biofilm, as well as some surrounding hyperkeratotic tissue. There continues to be no probing to bone, no tracking, no undermining, no surrounding or extending cellulitis, no purulence, no malodor, no increase in warmth to the ulcer site. Wound Measurements and Assessment WC - Nurse 1 - General Ulcer Measurement Start: 01/02/19 09:08 Freq: Status: Active Protocol: Activity Type Activity Date Activity User E-Sign Co-Sign Detail Recorded Client Recorded Date Recorded By Document 01/02/19 09:08 AR [id number] 01/02/19 09:12 AR 01/02/19 09:08 Wound Center Nurse 1 [Ulcer Assessment] #4 LEFT ANKLE -Combined with other wound No -Current Size (cm) - Length 9.2 -Current Size (cm) - Width 6.0 -Current Size (cm) - Depth 0.3 -Total Square Cm 55.20 -Photo Taken No -Tunneling No -Undermining/Tunneling No -Circular Undermining No -Exudate Amt Small -Exudate Type Serosanguineous -Wound Margin Flat & Intact -Granulation Amt Medium (34-66%) -Granulation Quality Pale [place] -Necrosis Amt Medium (34-66%) -Necrotic Tissue Type Adherent Slough -Texture (Ara-wound Skin Appearance) Assessed Scarring -Moisture (Ara-wound Skin Appearance Assessed ) -Color (Ara-wound Skin Appearance) Assessed Hemosiderin Staining -Temperature (Ara-wound Skin No Abnormality Appearance) (Pt Warm) -Tenderness on Palpation (Ara-wound No Skin Appearance) -Ulcer Cleansing Rinsed/ Irrigated with Saline -Foul Odor after Cleansing No -Anesthetic Used 5% Lidocaine Gel [Edema Assessment] -Left Calf (cm) 34.2 -Left Ankle (cm) 24.5 WC - Nurse 2 - General Ulcer CM Notes Start: 01/02/19 09:08 Freq: Status: Active Protocol: Activity Type Activity Date Activity User E-Sign Co-Sign Detail Recorded Client Recorded Date Recorded By Document 01/02/19 09:37 DV [id number] 01/02/19 09:43 DV 01/02/19 09:37 Wound Center Nurse 2 [Procedure/Treatment] #4 LEFT ANKLE -Time 09:38 -Correct Patient Yes -Correct Side, Site, Position Yes -Correct Procedure Yes -Procedure Performed Yes -Type of Procedure Debridement -Clinical Debridement Selective -Post Debridement Size (cm) - Length 8.0 -Post Debridement Size (cm) - Width 7.0 -Post Debridement Size (cm) - Depth 0.3 -Total Square Cm 56.00 -Wound/Ulcer Outcome Not Healed -Ulcer Cleansing Rinsed/ Irrigated with Saline -Foul Odor after Cleansing No -Bioengineered Tissue No -Bleeding Controlled with Pressure -Offloading No -Treatment Response Procedure Tolerated Well [See Physician Procedure note for Specifics] Pain Scale: 0-10 Numeric [Pain] -Is Patient Pain Free? No Musculoskeletal: Tenderness - Some minor tenderness with manipulation of ulcer site Neurological: Sensory exam intact to light touch and pain Psych/Mental Status: Normal Affect, Appropriate Debridement Note Post-Debridement Measurements/Treatment - Nurse 2 - General Ulcer CM Notes Start: 01/02/19 09:08 Freq: Status: Active Protocol: Activity Type Activity Date Activity User E-Sign Co-Sign Detail Recorded Client Recorded Date Recorded By Document 01/02/19 09:37 DV [id number] 01/02/19 09:43 DV 01/02/19 09:37 Wound Center Nurse 2 #4 LEFT ANKLE -Time 09:38 -Correct Patient Yes -Correct Side, Site, Position Yes -Correct Procedure Yes -Procedure Performed Yes -Type of Procedure Debridement -Clinical Debridement Selective -Post Debridement Size (cm) - Length 8.0 -Post Debridement Size (cm) - Width 7.0 -Post Debridement Size (cm) - Depth 0.3 -Total Square Cm 56.00 -Wound/Ulcer Outcome Not Healed -Ulcer Cleansing Rinsed/ Irrigated with Saline -Foul Odor after Cleansing No -Bioengineered Tissue No -Bleeding Controlled with Pressure -Offloading No -Treatment Response Procedure Tolerated Well Pain Scale: 0-10 Numeric Is Patient Pain Free? No Wound debrided: Left medial ankle Laterality: Left Type of Debridement: Selective debridement Anesthesia Used: 4% Lidocaine Solution Depth: in the subcutaneous layer Percentage of wound debrided: 20 Instrument Used: 7mm curette Tissue Removed: Slough, keratotic tissue Severity: Fat Layer Exposed Amount of bleeding with debridement: None Bleeding Controlled with: Pressure Patient tolerated procedure well Assessment/Plan Plan: Patient was carefully examined and evaluated again today. Very minor eddie ective debridement performed as noted in clinical panel. The base was dressed with hydrofera blue, followed by adaptic, and a dry sterile absorptive dressing. This was followed by Tubigrip for compression. Patient is to continue with augmentin, and doxycycline as instructed. He has had no side effects with these. Three-view x-rays of the left foot and ankle were also ordered previously and they did not demonstrate any acute osseous abnormalities according to the report. Full report is in patient's chart. The importance of offloading the ulcer site was discussed at length with this patient again today. He says he is unable to completely stop working, but he does have the option for light duty. He is to continue with this. I stressed the importance of keeping pressure off of all of the ulcer sites and how this will impact his healing potential. Patient was instructed to be off his feet as much as possible and to keep the lower extremities elevated while not at work. The importance of compression was also discussed with this patient today. LEAS studies were reviewed at a previous patient visit and the results are in the patient's chart. I continue to recommend nutritional supplementation with a high-protein diet at this time in order to help optimize ulcer healing potential. Smoking cessation was stressed again today. All signs and symptoms of local and systemic infection were discussed in great detail with the patient today and he was instructed to go to the emergency room immediately should he notice any of these. All questions were answered to the patient's satisfaction. Patient will follow-up in clinic in 1 week to check on progress, or sooner if needed.
[2019-01-09 09:01] VITALS: BP 144/91; PULSE 83; RESP 20; TEMP 36.3; BMI 31.4
--- NOTE | 2019-01-09 10:04 | PCM.WC.PN ---
(1) Ulcer of left lower extremity with fat layer exposed Status: Acute Current Visit: No Code(s): L97.922 - Non-pressure chronic ulcer of unspecified part of left lower leg with fat layer exposed (2) PVD (peripheral vascular disease) Status: Acute Current Visit: No Code(s): I73.9 - Peripheral vascular disease, unspecified (3) Chronic venous insufficiency Status: Acute Current Visit: No Code(s): I87.2 - Venous insufficiency (chronic) (peripheral) (4) Edema, lower extremity Status: Acute Current Visit: No Code(s): R60.0 - Localized edema (5) Pain of left lower extremity Status: Acute Current Visit: No Code(s): M79.605 - Pain in left leg (6) Delayed wound healing Status: Acute Current Visit: No Code(s): T14.8XXD - Other injury of unspecified body region, subsequent encounter Type of Wound Chief Complaint: ulcers to the left lower leg/foot History of Wound: This is a 51-year-old white male presents to wound healing center with a long-standing history of chronic venous insufficiency, chronic venous hypertension, lower extremity edema, lower extremity pain, and 3 ulcer sites to left lower leg/foot. The patient has had multiple ulcerations in the lower extremities bilaterally, related to his chronic venous disease. He also has chronic venous stasis changes. The skin changes include hyperpigmentation. The patient has previously undergone endovenous laser ablation of the left and right great saphenous vein, the small saphenous vein, the left accessory saphenous vein, and an incompetent left calf substation design draftsperson vein located 15 cm proximal to the left medial malleolus. He is currently wearing graduated compression stockings which are documented to be 20-30 mmHg compression, however, he says the ones he has on are about a year old. He has new ones at home that he has not been wearing. 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 Patient says that he noticed a small area start opening on the top of his left foot about 8-10 months ago. He says he tried to doctor this on his own with old wound care supplies. He says this continued to get slightly worse. Then, about 4 months ago, he noticed the area around the medial malleolus starting to break down, and that has slowly been getting worse too. He also has a small anterior lower leg ulcer. Nothing he has done on his own to treat these areas has helped. He decided he should finally come back to the wound healing center to see if he can get the areas to heal again. Progress of Wound: Continued skin bridging noted. Ulcer relatively stable this week. Patient has taken antibiotics as prescribed over the last week. Patient denies any feelings of nausea, vomiting, fever, chills at this time. - Physical Exam Vital Signs Temp Pulse Resp BP 97.3 F L 83 20 H 144/91 H 01/09/19 09:01 01/09/19 09:01 01/09/19 09:01/09/19 09:01 General: Alert, Oriented x3, Cooperative, No apparent distress Extremities: Capillary Refill Less than 3 Seconds, No Calf Tenderness - Negative Lakisha and Hough signs, Diminished Peripheral Pulses - DP and PT pulses nonpalpable, Edema - Slight lower extremity edema Skin: Ulcer/ Wound - Ulcer to left medial ankle with fat layer exposed. Ulcer base shows some continued skin bridging this week and change of ulcer shape. Ulcer has remained relatively stable. The base is noted to be a mixture of slough, fibrin, granular tissue, biofilm, as well as some surrounding hyperkeratotic tissue. There continues to be no probing to bone, no tracking, no undermining, no surrounding or extending cellulitis, no purulence, no malodor, no increase in warmth to the ulcer site. Wound Measurements and Assessment WC - Nurse 1 - General Ulcer Measurement Start: 01/02/19 09:08 Freq: Status: Active Protocol: Activity Type Activity Date Activity User E-Sign Co-Sign Detail Recorded Client Recorded Date Recorded By Document 01/09/19 09:01 DL [id number] 01/09/19 09:09 DL 01/09/19 09:01 Wound Center Nurse 1 [Ulcer Assessment] #4 LEFT ANKLE -Current Size (cm) - Length 9 -Current Size (cm) - Width 8.2 -Current Size (cm) - Depth 0.3 -Total Square Cm 73.8 -Photo Taken Yes -Exudate Amt Medium -Exudate Type Serosanguineous -Wound Margin Thickened & Rolled Under -Granulation Amt Medium (34-66%) -Granulation Quality Red -Necrosis Amt Medium (34-66%) -Necrotic Tissue Type Adherent Slough -Texture (Ara-wound Skin Appearance) Localized Edema Scarring -Moisture (Ara-wound Skin Appearance Dry/Scaly ) -Color (Ara-wound Skin Appearance) Hemosiderin Staining -Temperature (Ara-wound Skin No Abnormality Appearance) (Pt Warm) -Ulcer Cleansing Wound Cleanser -Foul Odor after Cleansing No -Anesthetic Used 5% Lidocaine Gel [Edema Assessment] -Left Calf (cm) 33.4 -Left Ankle (cm) 23 - Nurse 2 - General Ulcer CM Notes Start: 01/02/19 09:08 Freq: Status: Active Protocol: Activity Type Activity Date Activity User E-Sign Co-Sign Detail Recorded Client Recorded Date Recorded By Document 01/09/19 10:01 DV [id number] 01/09/19 10:03 DV 01/09/19 10:01 Wound Center Nurse 2 [Procedure/Treatment] #4 LEFT ANKLE -Time 10:02 -Correct Patient Yes -Correct Side, Site, Position Yes -Correct Procedure No -Procedure Performed No -Wound/Ulcer Outcome Not Healed [See Physician Procedure note for Specifics] Musculoskeletal: Tenderness - Some minor tenderness with manipulation of ulcer site Neurological: Sensory exam intact to light touch and pain Psych/Mental Status: Normal Affect, Appropriate Debridement Note Post-Debridement Measurements/Treatment - Nurse 2 - General Ulcer CM Notes Start: 01/02/19 09:08 Freq: Status: Active Protocol: Activity Type Activity Date Activity User E-Sign Co-Sign Detail Recorded Client Recorded Date Recorded By Document 01/02/19 09:37 DV [id number] 01/02/19 09:43 DV Document 01/09/19 10:01 DV [id number] 01/09/19 10:03 DV 01/02/19 01/09/19 09:37 10:01 Wound Center Nurse 2 #4 LEFT ANKLE -Time 09:38 10:02 -Correct Patient Yes Yes -Correct Side, Site, Position Yes Yes -Correct Procedure Yes No -Procedure Performed Yes No -Type of Procedure Debridement -Clinical Debridement Selective -Post Debridement Size (cm) - Length 8.0 -Post Debridement Size (cm) - Width 7.0 -Post Debridement Size (cm) - Depth 0.3 -Total Square Cm 56.00 -Wound/Ulcer Outcome Not Healed Not Healed -Ulcer Cleansing Rinsed/ Irrigated with Saline -Foul Odor after Cleansing No -Bioengineered Tissue No -Bleeding Controlled with Pressure -Offloading No -Treatment Response Procedure Tolerated Well Pain Scale: 0-10 Numeric Is Patient Pain Free? No No debridement was completed today Assessment/Plan Assessment: Right medial ankle ulcer resolved. Peripheral vascular occlusive disease. Nonhealing ulcers resolved. Edema Plan: Patient was carefully examined and evaluated again today. No debridement was completed today. Some slough areas were carefully removed using a slightly moist and gauze. The base was dressed with hydrofera blue, followed by adaptic, and a dry sterile absorptive dressing. This was followed by Tubigrip for compression. Patient is to continue with augmentin, and doxycycline as instructed. He has had no side effects with these. Three-view x-rays of the left foot and ankle were also ordered previously and they did not demonstrate any acute osseous abnormalities according to the report. Full report is in patient's chart. MRI was denied. Patient unalbe to tolerate almost every other dressing tried. The importance of offloading the ulcer site was discussed at length with this patient again today. He says he is unable to completely stop working, but he does have the option for light duty. He is to continue with this. I stressed the importance of keeping pressure off of all of the ulcer sites and how this will impact his healing potential. Patient was instructed to be off his feet as much as possible and to keep the lower extremities elevated while not at work. The importance of compression was also discussed with this patient today. LEAS studies were reviewed at a previous patient visit and the results are in the patient's chart. I continue to recommend nutritional supplementation with a high-protein diet at this time in order to help optimize ulcer healing potential. Smoking cessation was stressed again today. All signs and symptoms of local and systemic infection were discussed in great detail with the patient today and he was instructed to go to the emergency room immediately should he notice any of these. All questions were answered to the patient's satisfaction. Patient will follow-up in clinic in 1 week to check on progress, or sooner if needed.
[2019-01-16 09:01] VITALS: BP 146/76; PULSE 88; RESP 20; TEMP 36.4; BMI 31.4
--- NOTE | 2019-01-16 12:28 | PCM.WC.PN ---
(1) Ulcer of left lower extremity with fat layer exposed Status: Acute Current Visit: No Code(s): L97.922 - Non-pressure chronic ulcer of unspecified part of left lower leg with fat layer exposed (2) PVD (peripheral vascular disease) Status: Acute Current Visit: No Code(s): I73.9 - Peripheral vascular disease, unspecified (3) Chronic venous insufficiency Status: Acute Current Visit: No Code(s): I87.2 - Venous insufficiency (chronic) (peripheral) (4) Edema, lower extremity Status: Acute Current Visit: No Code(s): R60.0 - Localized edema (5) Pain of left lower extremity Status: Acute Current Visit: No Code(s): M79.605 - Pain in left leg (6) Delayed wound healing Status: Acute Current Visit: No Code(s): T14.8XXD - Other injury of unspecified body region, subsequent encounter Type of Wound Chief Complaint: ulcers to the left lower leg/foot History of Wound: This is a 51-year-old white male presents to wound healing center with a long-standing history of chronic venous insufficiency, chronic venous hypertension, lower extremity edema, lower extremity pain, and 3 ulcer sites to left lower leg/foot. The patient has had multiple ulcerations in the lower extremities bilaterally, related to his chronic venous disease. He also has chronic venous stasis changes. The skin changes include hyperpigmentation. The patient has previously undergone endovenous laser ablation of the left and right great saphenous vein, the small saphenous vein, the left accessory saphenous vein, and an incompetent left calf community development coordinator vein located 15 cm proximal to the left medial malleolus. He is currently wearing graduated compression stockings which are documented to be 20-30 mmHg compression, however, he says the ones he has on are about a year old. He has new ones at home that he has not been wearing. 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 Patient says that he noticed a small area start opening on the top of his left foot about 8-10 months ago. He says he tried to doctor this on his own with old wound care supplies. He says this continued to get slightly worse. Then, about 4 months ago, he noticed the area around the medial malleolus starting to break down, and that has slowly been getting worse too. He also has a small anterior lower leg ulcer. Nothing he has done on his own to treat these areas has helped. He decided he should finally come back to the wound healing center to see if he can get the areas to heal again. Progress of Wound: Continued skin bridging noted. Ulcer remains stable this week. Patient has taken antibiotics as prescribed over the last week. Patient denies any feelings of nausea, vomiting, fever, chills at this time. - Physical Exam Vital Signs Temp Pulse Resp BP 97.5 F L 88 20 H 146/76 H 01/16/19 09:01 01/16/19 09:01 01/16/19 09:01/16/19 09:01 General: Alert, Oriented x3, Cooperative, No apparent distress Extremities: Capillary Refill Less than 3 Seconds, No Calf Tenderness - Negative Lakisha and Hough signs, Diminished Peripheral Pulses - DP and PT pulses nonpalpable, Edema - Slight lower extremity edema Skin: Ulcer/ Wound - Ulcer to left medial ankle with fat layer exposed. Ulcer base shows some continued skin bridging this week and slow change of ulcer shape. Ulcer has remained relatively stable. The base is noted to be a mixture of slough, fibrin, granular tissue, biofilm, as well as some surrounding hyperkeratotic tissue. There continues to be no probing to bone, no tracking, no undermining, no surrounding or extending cellulitis, no purulence, no malodor, no increase in warmth to the ulcer site. Wound Measurements and Assessment WC - Nurse 1 - General Ulcer Measurement Start: 01/02/19 09:08 Freq: Status: Active Protocol: Activity Type Activity Date Activity User E-Sign Co-Sign Detail Recorded Client Recorded Date Recorded By Document 01/16/19 09: DL [id number] 01/16/19 09:08 DL 01/16/19 09:01 Wound Center Nurse 1 [Ulcer Assessment] #4 LEFT ANKLE -Current Size (cm) - Length 8.5 -Current Size (cm) - Width 5.8 -Current Size (cm) - Depth 0.3 -Total Square Cm 49.30 -Photo Taken No -Exudate Amt Medium -Exudate Type Serosanguineous -Wound Margin Thickened & Rolled Under -Granulation Amt Medium (34-66%) -Granulation Quality Red -Necrosis Amt Medium (34-66%) -Necrotic Tissue Type Adherent Slough -Structure Exposed N/A -Texture (Ara-wound Skin Appearance) Scarring -Moisture (Ara-wound Skin Appearance Dry/Scaly ) -Color (Ara-wound Skin Appearance) Hemosiderin Staining -Temperature (Ara-wound Skin No Abnormality Appearance) (Pt Warm) -Tenderness on Palpation (Ara-wound No Skin Appearance) -Ulcer Cleansing Wound Cleanser -Foul Odor after Cleansing No -Anesthetic Used 4% Lidocaine Solution [Edema Assessment] -Left Calf (cm) 34.5 -Left Ankle (cm) 23.3 Musculoskeletal: Tenderness - Some minor tenderness with manipulation of ulcer site Neurological: Sensory exam intact to light touch and pain Psych/Mental Status: Normal Affect, Appropriate Debridement Note Post-Debridement Measurements/Treatment WC - Nurse 2 - General Ulcer CM Notes Start: 01/02/19 09:08 Freq: Status: Active Protocol: Activity Type Activity Date Activity User E-Sign Co-Sign Detail Recorded Client Recorded Date Recorded By Document 01/02/19 09:37 DV [id number] 01/02/19 09:43 DV Document 01/09/19 10:01 DV [id number] 01/09/19 10:03 DV 01/02/19 01/09/19 09:37 10:01 Wound Center Nurse 2 #4 LEFT ANKLE -Time 09:38 10:02 -Correct Patient Yes Yes -Correct Side, Site, Position Yes Yes -Correct Procedure Yes No -Procedure Performed Yes No -Type of Procedure Debridement -Clinical Debridement Selective -Post Debridement Size (cm) - Length 8.0 -Post Debridement Size (cm) - Width 7.0 -Post Debridement Size (cm) - Depth 0.3 -Total Square Cm 56.00 -Wound/Ulcer Outcome Not Healed Not Healed -Ulcer Cleansing Rinsed/ Irrigated with Saline -Foul Odor after Cleansing No -Bioengineered Tissue No -Bleeding Controlled with Pressure -Offloading No -Treatment Response Procedure Tolerated Well Pain Scale: 0-10 Numeric Is Patient Pain Free? No No debridement was completed today Assessment/Plan Assessment: Right medial ankle ulcer resolved. Peripheral vascular occlusive disease. Nonhealing ulcers resolved. Edema Plan: Patient was carefully examined and evaluated again today. No agressive debridement was completed today. Some slough areas were carefully removed using a slightly moist and gauze. The base was dressed with hydrofera blue, followed by adaptic, and a dry sterile absorptive dressing. This was followed by Tubigrip for compression. Patient is to continue with augmentin, and doxycycline as instructed until complete. He has had no side effects with these. Three-view x-rays of the left foot and ankle were also ordered previously and they did not demonstrate any acute osseous abnormalities according to the report. Full report is in patient's chart. MRI was denied. Patient unalbe to tolerate almost every other dressing tried. Since the ulcer continues to show very slow improvement and the patient has been unable to tolerate many of the different treatment options we have tried, the patient will be referred to dermatology for a consult and possible biopsy of ulcer site to gain further information. The importance of offloading the ulcer site was discussed at length with this patient again today. He says he is unable to completely stop working, but he does have the option for light duty. He is to continue with this. I stressed the importance of keeping pressure off of all of the ulcer sites and how this will impact his healing potential. Patient was instructed to be off his feet as much as possible and to keep the lower extremities elevated while not at work. The importance of compression was also discussed with this patient today. LEAS studies were reviewed at a previous patient visit and the results are in the patient's chart. I continue to recommend nutritional supplementation with a high-protein diet at this time in order to help optimize ulcer healing potential. Smoking cessation was stressed again today. All signs and symptoms of local and systemic infection were discussed in great detail with the patient today and he was instructed to go to the emergency room immediately should he notice any of these. All questions were answered to the patient's satisfaction. Patient will follow-up in clinic in 1 week to check on progress, or sooner if needed.
--- NOTE | 2019-01-16 12:33 | PN.PCM_ITS ---
(1) Ulcer of left lower extremity with fat layer exposed Status: Acute Current Visit: No Code(s): L97.922 - Non-pressure chronic ulcer of unspecified part of left lower leg with fat layer exposed (2) PVD (peripheral vascular disease) Status: Acute Current Visit: No Code(s): I73.9 - Peripheral vascular disease, unspecified (3) Chronic venous insufficiency Status: Acute Current Visit: No Code(s): I87.2 - Venous insufficiency (chronic) (peripheral) (4) Edema, lower extremity Status: Acute Current Visit: No Code(s): R60.0 - Localized edema (5) Pain of left lower extremity Status: Acute Current Visit: No Code(s): M79.605 - Pain in left leg (6) Delayed wound healing Status: Acute Current Visit: No Code(s): T14.8XXD - Other injury of unspecified body region, subsequent encounter Type of Wound Chief Complaint: ulcers to the left lower leg/foot History of Wound: This is a 51-year-old white male presents to wound healing center with a long-standing history of chronic venous insufficiency, chronic venous hypertension, lower extremity edema, lower extremity pain, and 3 ulcer sites to left lower leg/foot. The patient has had multiple ulcerations in the lower extremities bilaterally, related to his chronic venous disease. He also has chronic venous stasis changes. The skin changes include hyperpigmentation. The patient has previously undergone endovenous laser ablation of the left and right great saphenous vein, the small saphenous vein, the left accessory saphenous vein, and an incompetent left calf ichthyology teacher vein located 15 cm p roximal to the left medial malleolus. He is currently wearing graduated compression stockings which are documented to be 20-30 mmHg compression, however, he says the ones he has on are about a year old. He has new ones at home that he has not been wearing. 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 Patient says that he noticed a small area start opening on the top of his left foot about 8-10 months ago. He says he tried to doctor this on his own with old wound care supplies. He says this continued to get slightly worse. Then, about 4 months ago, he noticed the area around the medial malleolus starting to break down, and that has slowly been getting worse too. He also has a small anterior lower leg ulcer. Nothing he has done on his own to treat these areas has helped. He decided he should finally come back to the wound healing center to see if he can get the areas to heal again. Progress of Wound: Continued skin bridging noted. Ulcer remains stable this week. Patient has taken antibiotics as prescribed over the last week. Patient denies any feelings of nausea, vomiting, fever, chills at this time. - Physical Exam Vital Signs Temp Pulse Resp BP 97.5 F L 88 20 H 146/76 H 01/16/19 09:01 01/16/19 09:01 01/16/19 09:01/16/19 09:01 General: Alert, Oriented x3, Cooperative, No apparent distress Extremities: Capillary Refill Less than 3 Seconds, No Calf Tenderness - Negative Lakisha and Hough signs, Diminished Peripheral Pulses - DP and PT pulses nonpalpable, Edema - Slight lower extremity edema Skin: Ulcer/ Wound - Ulcer to left medial ankle with fat layer exposed. Ulcer base shows some continued skin bridging this week and slow change of ulcer shape. Ulcer has remained relatively stable. The base is noted to be a mixture of slough, fibrin, granular tissue, biofilm, as well as some surrounding hyperkeratotic tissue. There continues to be no probing to bone, no tracking, no undermining, no surrounding or extending cellulitis, no purulence, no malodor, no increase in warmth to the ulcer site. Wound Measurements and Assessment WC - Nurse 1 - General Ulcer Measurement Start: 01/02/19 09:08 Freq: Status: Active Protocol: Activity Type Activity Date Activity User E-Sign Co-Sign Detail Recorded Client Recorded Date Recorded By Document 01/16/19 09: TIFFANY [id number] 01/16/19 09:08 DL 01/16/19 09:01 Wound Center Nurse 1 [Ulcer Assessment] #4 LEFT ANKLE -Current Size (cm) - Length 8.5 -Current Size (cm) - Width 5.8 -Current Size (cm) - Depth 0.3 -Total Square Cm 49.30 -Photo Taken No -Exudate Amt Medium -Exudate Type Serosanguineous -Wound Margin Thickened & Rolled Under -Granulation Amt Medium (34-66%) -Granulation Quality Red -Necrosis Amt Medium (34-66%) -Necrotic Tissue Type Adherent Slough -Structure Exposed N/A -Texture (Ara-wound Skin Appearance) Scarring -Moisture (Ara-wound Skin Appearance Dry/Scaly ) -Color (Ara-wound Skin Appearance) Hemosiderin Staining -Temperature (Ara-wound Skin No Abnormality Appearance) (Pt Warm) -Tenderness on Palpation (Aar-wound No Skin Appearance) -Ulcer Cleansing Wound Cleanser -Foul Odor after Cleansing No -Anesthetic Used 4% Lidocaine Solution [Edema Assessment] -Left Calf (cm) 34.5 -Left Ankle (cm) 23.3 Musculoskeletal: Tenderness - Some minor tenderness with manipulation of ulcer site Neurological: Sensory exam intact to light touch and pain Psych/Mental Status: Normal Affect, Appropriate Debridement Note Post-Debridement Measurements/Treatment WC - Nurse 2 - General Ulcer CM Notes Start: 01/02/19 09:08 Freq: Status: Active Protocol: Activity Type Activity Date Activity User E-Sign Co-Sign Detail Recorded Client Recorded Date Recorded By Document 01/02/19 09:37 DV [id number] 01/02/19 09:43 DV Document 01/09/19 10:01 DV [id number] 01/09/19 10:03 DV 01/02/19 01/09/19 09:37 10:01 Wound Center Nurse 2 #4 LEFT ANKLE -Time 09:38 10:02 -Correct Patient Yes Yes -Correct Side, Site, Position Yes Yes -Correct Procedure Yes No -Procedure Performed Yes No -Type of Procedure Debridement -Clinical Debridement Selective -Post Debridement Size (cm) - Length 8.0 -Post Debridement Size (cm) - Width 7.0 -Post Debridement Size (cm) - Depth 0.3 -Total Square Cm 56.00 -Wound/Ulcer Outcome Not Healed Not Healed -Ulcer Cleansing Rinsed/ Irrigated with Saline -Foul Odor after Cleansing No -Bioengineered Tissue No -Bleeding Controlled with Pressure -Offloading No -Treatment Response Procedure Tolerated Well Pain Scale: 0-10 Numeric Is Patient Pain Free? No No debridement was completed today Assessment/Plan Assessment: Right medial ankle ulcer resolved. Peripheral vascular occlusive disease. Nonhealing ulcers resolved. Edema Plan: Patient was carefully examined and evaluated again today. No agressive debridement was completed today. Some slough areas were carefully removed using a slightly moist and gauze. The base was dressed with hydrofera blue, followed by adaptic, and a dry sterile absorptive dressing. This was followed by Tubigrip for compression. Patient is to continue with augmentin, and doxycycline as instructed until complete. He has had no side effects with these. Three-view x- rays of the left foot and ankle were also ordered previously and they did not demonstrate any acute osseous abnormalities according to the report. Full report is in patient's chart. MRI was denied. Patient unalbe to tolerate almost every other dressing tried. Since the ulcer continues to show very slow improvement and the patient has been unable to tolerate many of the different treatment options we have tried, the patient will be referred to dermatology for a consult and possible biopsy of ulcer site to gain further information. The importance of offloading the ulcer site was discussed at length with this patient again today. He says he is unable to completely stop working, but he does have the option for light duty. He is to continue with this. I stressed the importance of keeping pressure off of all of the ulcer sites and how this will impact his healing potential. Patient was instructed to be off his feet as much as possible and to keep the lower extremities elevated while not at work. The importance of compression was also discussed with this patient today. LEAS studies were reviewed at a previous patient visit and the results are in the patient's chart. I continue to recommend nutritional supplementation with a high-protein diet at this time in order to help optimize ulcer healing potential. Smoking cessation was stressed again today. All signs and symptoms of local and systemic infection were discussed in great detail with the patient today and he was instructed to go to the emergency room immediately should he notice any of these. All questions were answered to the patient's satisfaction. Patient will follow-up in clinic in 1 week to check on progress, or sooner if needed.
[2019-01-23 09:04] VITALS: BP 145/86; PULSE 78; RESP 18; TEMP 36.3; BMI 31.4
--- NOTE | 2019-01-23 09:11 | WC ---
pt visited Dr Caal dermatalogist [address] tanned a tissue biopsy of wound
--- NOTE | 2019-01-23 09:49 | PCM.WC.PN ---
(1) Ulcer of left lower extremity with fat layer exposed Status: Acute Current Visit: No Code(s): L97.922 - Non-pressure chronic ulcer of unspecified part of left lower leg with fat layer exposed (2) PVD (peripheral vascular disease) Status: Acute Current Visit: No Code(s): I73.9 - Peripheral vascular disease, unspecified (3) Chronic venous insufficiency Status: Acute Current Visit: No Code(s): I87.2 - Venous insufficiency (chronic) (peripheral) (4) Edema, lower extremity Status: Acute Current Visit: No Code(s): R60.0 - Localized edema (5) Pain of left lower extremity Status: Acute Current Visit: No Code(s): M79.605 - Pain in left leg (6) Delayed wound healing Status: Acute Current Visit: No Code(s): T14.8XXD - Other injury of unspecified body region, subsequent encounter Type of Wound Chief Complaint: ulcers to the left lower leg/foot History of Wound: This is a 51-year-old white male presents to wound healing center with a long-standing history of chronic venous insufficiency, chronic venous hypertension, lower extremity edema, lower extremity pain, and 3 ulcer sites to left lower leg/foot. The patient has had multiple ulcerations in the lower extremities bilaterally, related to his chronic venous disease. He also has chronic venous stasis changes. The skin changes include hyperpigmentation. The patient has previously undergone endovenous laser ablation of the left and right great saphenous vein, the small saphenous vein, the left accessory saphenous vein, and an incompetent left calf enologist vein located 15 cm proximal to the left medial malleolus. He is currently wearing graduated compression stockings which are documented to be 20-30 mmHg compression, however, he says the ones he has on are about a year old. He has new ones at home that he has not been wearing. 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 Patient says that he noticed a small area start opening on the top of his left foot about 8-10 months ago. He says he tried to doctor this on his own with old wound care supplies. He says this continued to get slightly worse. Then, about 4 months ago, he noticed the area around the medial malleolus starting to break down, and that has slowly been getting worse too. He also has a small anterior lower leg ulcer. Nothing he has done on his own to treat these areas has helped. He decided he should finally come back to the wound healing center to see if he can get the areas to heal again. Progress of Wound: Continued skin bridging noted. Ulcer remains stable this week. Patient denies any feelings of nausea, vomiting, fever, chills at this time. - Physical Exam Vital Signs Temp Pulse Resp BP 97.3 F L 78 18 145/86 H 01/23/19 09:04 01/23/19 09:04 01/23/19 09:04 01/23/19 09:04 General: Alert, Oriented x3, Cooperative, No apparent distress Extremities: Capillary Refill Less than 3 Seconds, No Calf Tenderness - Negative Lakisha and Hough signs, Diminished Peripheral Pulses - DP and PT pulses nonpalpable, Edema - Slight lower extremity edema Skin: Ulcer/ Wound - Ulcer to left medial ankle with fat layer exposed. Very minor improvements appreciated again this week. The base is noted to be a mixture of slough, fibrin, granular tissue, biofilm, as well as some surrounding hyperkeratotic tissue. There continues to be no probing to bone, no tracking, no undermining, no surrounding or extending cellulitis, no purulence, no malodor, no increase in warmth to the ulcer site Wound Measurements and Assessment WC - Nurse 1 - General Ulcer Measurement Start: 01/02/19 09:08 Freq: Status: Active Protocol: Activity Type Activity Date Activity User E-Sign Co-Sign Detail Recorded Client Recorded Date Recorded By Document 01/23/19 09:04 RB [id number] 01/23/19 09:11 RB 01/23/19 09:04 Wound Center Nurse 1 [Ulcer Assessment] #4 LEFT ANKLE -Combined with other wound No -Current Size (cm) - Length 8.7 -Current Size (cm) - Width 5.5 -Current Size (cm) - Depth 0.4 -Total Square Cm 47.85 -Tunneling No -Undermining/Tunneling No -Circular Undermining No -Exudate Amt Small -Exudate Type Serosanguineous -Wound Margin Thickened & Rolled Under -Granulation Amt Large (67-100%) -Granulation Quality [place] -Slough/Fibrin Yes -Necrosis Amt Small (1-33%) -Necrotic Tissue Type Adherent Slough -Structure Exposed N/A -Texture (Ara-wound Skin Appearance) Assessed -Moisture (Ara-wound Skin Appearance Assessed ) -Color (Ara-wound Skin Appearance) Hemosiderin Staining -Temperature (Ara-wound Skin No Abnormality Appearance) (Pt Warm) -Tenderness on Palpation (Ara-wound No Skin Appearance) -Ulcer Cleansing Wound Cleanser -Foul Odor after Cleansing No -Anesthetic Used 4% Lidocaine Solution [Edema Assessment] -Lower Limb Edema Present Yes -Left Calf (cm) 39.5 -Left Ankle (cm) 27 WC - Nurse 2 - General Ulcer CM Notes Start: 01/02/19 09:08 Freq: Status: Active Protocol: Activity Type Activity Date Activity User E-Sign Co-Sign Detail Recorded Client Recorded Date Recorded By Document 01/23/19 09:35 DV [id number] 01/23/19 09:37 DV 01/23/19 09:35 Wound Center Nurse 2 [Procedure/Treatment] #4 LEFT ANKLE -Time 09:35 -Correct Patient Yes -Correct Side, Site, Position Yes -Correct Procedure Yes -Procedure Performed Yes -Type of Procedure Debridement -Clinical Debridement Selective -Post Debridement Size (cm) - Length 8.5 -Post Debridement Size (cm) - Width 6.8 -Post Debridement Size (cm) - Depth 0.3 -Total Square Cm 57.80 -Wound/Ulcer Outcome Not Healed -Ulcer Cleansing Rinsed/ Irrigated with Saline -Foul Odor after Cleansing No -Bioengineered Tissue No -Bleeding Controlled with Pressure -Offloading No -Treatment Response Procedure Tolerated Well [See Physician Procedure note for Specifics] Pain Scale: 0-10 Numeric [Pain] -Is Patient Pain Free? Yes Musculoskeletal: Tenderness - Some minor tenderness with manipulation of ulcer site Neurological: Sensory exam intact to light touch and pain Psych/Mental Status: Normal Affect, Appropriate Debridement Note Post-Debridement Measurements/Treatment - Nurse 2 - General Ulcer CM Notes Start: 01/02/19 09:08 Freq: Status: Active Protocol: Activity Type Activity Date Activity User E-Sign Co-Sign Detail Recorded Client Recorded Date Recorded By Document 01/02/19 09:37 DV [id number] 01/02/19 09:43 DV Document 03/14/19 10:01 DV [id number] 01/09/19 10:03 DV Document 01/23/19 09:35 DV [id number] 01/23/19 09:37 DV 01/02/19 01/09/19 01/23/19 09:37 10:01 09:35 Wound Center Nurse 2 #4 LEFT ANKLE -Time 09:38 10:02 09:35 -Correct Patient Yes Yes Yes -Correct Side, Site, Position Yes Yes Yes -Correct Procedure Yes No Yes -Procedure Performed Yes No Yes -Type of Procedure Debridement Debridement -Clinical Debridement Selective Selective -Post Debridement Size (cm) - Length 8.0 8.5 -Post Debridement Size (cm) - Width 7.0 6.8 -Post Debridement Size (cm) - Depth 0.3 0.3 -Total Square Cm 56.00 57.80 -Wound/Ulcer Outcome Not Healed Not Healed Not Healed -Ulcer Cleansing Rinsed/ Rinsed/ Irrigated with Irrigated with Saline Saline -Foul Odor after Cleansing No No -Bioengineered Tissue No No -Bleeding Controlled with Pressure Pressure -Offloading No No -Treatment Response Procedure Procedure Tolerated Well Tolerated Well Pain Scale: 0-10 Numeric Is Patient Pain Free? No Yes Wound debrided: Left medial ankle Laterality: Left Type of Debridement: Selective debridement Anesthesia Used: 4% Lidocaine Solution Depth: in the subcutaneous layer Percentage of wound debrided: 100 Instrument Used: 5mm curette Tissue Removed: Adherent slough, fibrin Severity: Fat Layer Exposed Amount of bleeding with debridement: Mild Bleeding Controlled with: Pressure Patient tolerated procedure well Assessment/Plan Assessment: Peripheral vascular occlusive disease. Nonhealing ulcers resolved. Edema Plan: Patient was carefully examined and evaluated again today. Selective debridement of ulcer site was performed as noted in the clinical panel. The base was dressed with hydrofera blue, followed by adaptic, and a dry sterile absorptive dressing. This was followed by Tubigrip for compression. Patient is to continue with augmentin, and doxycycline as instructed until complete. He has had no side effects with these. Three-view x-rays of the left foot and ankle were also ordered previously and they did not demonstrate any acute osseous abnormalities according to the report. Full report is in patient's chart. MRI was denied. Patient unalbe to tolerate almost every other dressing that has been tried to this date. Since the ulcer continues to show very slow improvement and the patient has been unable to tolerate many of the different treatment options we have tried, the patient was referred to dermatology for a consult and possible biopsy of ulcer site to gain further information. The patient saw the returned goods repairer on Sunday, and we are awaiting a faxed report from the patient's office visit. The importance of offloading the ulcer site was discussed at length with this patient again today. He says he is unable to completely stop working, but he does have the option for light duty. He is to continue with this. I stressed the importance of keeping pressure off of all of the ulcer sites and how this will impact his healing potential. Patient was instructed to be off his feet as much as possible and to keep the lower extremities elevated while not at work. The importance of compression was also discussed with this patient today. LEAS studies were reviewed at a previous patient visit and the results are in the patient's chart. I continue to recommend nutritional supplementation with a high-protein diet at this time in order to help optimize ulcer healing potential. Smoking cessation was stressed again today. All signs and symptoms of local and systemic infection were discussed in great detail with the patient today and he was instructed to go to the emergency room immediately should he notice any of these. All questions were answered to the patient's satisfaction. Patient will follow-up in clinic in 1 week to check on progress, or sooner if needed.
--- NOTE | 2019-01-23 09:55 | PN.PCM_ITS ---
(1) Ulcer of left lower extremity with fat layer exposed Status: Acute Current Visit: No Code(s): L97.922 - Non-pressure chronic ulcer of unspecified part of left lower leg with fat layer exposed (2) PVD (peripheral vascular disease) Status: Acute Current Visit: No Code(s): I73.9 - Peripheral vascular disease, unspecified (3) Chronic venous insufficiency Status: Acute Current Visit: No Code(s): I87.2 - Venous insufficiency (chronic) (peripheral) (4) Edema, lower extremity Status: Acute Current Visit: No Code(s): R60.0 - Localized edema (5) Pain of left lower extremity Status: Acute Current Visit: No Code(s): M79.605 - Pain in left leg (6) Delayed wound healing Status: Acute Current Visit: No Code(s): T14.8XXD - Other injury of unspecified body region, subsequent encounter Type of Wound Chief Complaint: ulcers to the left lower leg/foot History of Wound: This is a 51-year-old white male presents to wound healing center with a long-standing history of chronic venous insufficiency, chronic venous hypertension, lower extremity edema, lower extremity pain, and 3 ulcer sites to left lower leg/foot. The patient has had multiple ulcerations in the lower extremities bilaterally, related to his chronic venous disease. He also has chronic venous stasis changes. The skin changes include hyperpigmentation. The patient has previously undergone endovenous laser ablation of the left and right great saphenous vein, the small saphenous vein, the left accessory saphenous vein, and an incompetent left calf leather patcher vein located 15 cm p roximal to the left medial malleolus. He is currently wearing graduated compression stockings which are documented to be 20-30 mmHg compression, however, he says the ones he has on are about a year old. He has new ones at home that he has not been wearing. 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 Patient says that he noticed a small area start opening on the top of his left foot about 8-10 months ago. He says he tried to doctor this on his own with old wound care supplies. He says this continued to get slightly worse. Then, about 4 months ago, he noticed the area around the medial malleolus starting to break down, and that has slowly been getting worse too. He also has a small anterior lower leg ulcer. Nothing he has done on his own to treat these areas has helped. He decided he should finally come back to the wound healing center to see if he can get the areas to heal again. Progress of Wound: Continued skin bridging noted. Ulcer remains stable this week. Patient denies any feelings of nausea, vomiting, fever, chills at this time. - Physical Exam Vital Signs Temp Pulse Resp BP 97.3 F L 78 18 145/86 H 01/23/19 09:04 01/23/19 09:04 01/23/19 09:04 01/23/19 09:04 General: Alert, Oriented x3, Cooperative, No apparent distress Extremities: Capillary Refill Less than 3 Seconds, No Calf Tenderness - Negative Lakisha and Hough signs, Diminished Peripheral Pulses - DP and PT pulses nonpalpable, Edema - Slight lower extremity edema Skin: Ulcer/ Wound - Ulcer to left medial ankle with fat layer exposed. Very minor improvements appreciated again this week. The base is noted to be a mixture of slough, fibrin, granular tissue, biofilm, as well as some surrounding hyperkeratotic tissue. There continues to be no probing to bone, no tracking, no undermining, no surrounding or extending cellulitis, no purulence, no malodor, no increase in warmth to the ulcer site Wound Measurements and Assessment WC - Nurse 1 - General Ulcer Measurement Start: 01/02/19 09:08 Freq: Status: Active Protocol: Activity Type Activity Date Activity User E-Sign Co-Sign Detail Recorded Client Recorded Date Recorded By Document 01/23/19 09:04 RB [id number] 01/23/19 09:11 RB 01/23/19 09:04 Wound Center Nurse 1 [Ulcer Assessment] #4 LEFT ANKLE -Combined with other wound No -Current Size (cm) - Length 8.7 -Current Size (cm) - Width 5.5 -Current Size (cm) - Depth 0.4 -Total Square Cm 47.85 -Tunneling No -Undermining/Tunneling No -Circular Undermining No -Exudate Amt Small -Exudate Type Serosanguineous -Wound Margin Thickened & Rolled Under -Granulation Amt Large (67-100%) -Granulation Quality [place] -Slough/Fibrin Yes -Necrosis Amt Small (1-33%) -Necrotic Tissue Type Adherent Slough -Structure Exposed N/A -Texture (Ara-wound Skin Appearance) Assessed -Moisture (Ara-wound Skin Appearance Assessed ) -Color (Ara-wound Skin Appearance) Hemosiderin Staining -Temperature (Ara-wound Skin No Abnormality Appearance) (Pt Warm) -Tenderness on Palpation (Ara-wound No Skin Appearance) -Ulcer Cleansing Wound Cleanser -Foul Odor after Cleansing No -Anesthetic Used 4% Lidocaine Solution [Edema Assessment] -Lower Limb Edema Present Yes -Left Calf (cm) 39.5 -Left Ankle (cm) 27 WC - Nurse 2 - General Ulcer CM Notes Start: 01/02/19 09:08 Freq: Status: Active Protocol: Activity Type Activity Date Activity User E-Sign Co-Sign Detail Recorded Client Recorded Date Recorded By Document 01/23/19 09:35 DV [id number] 01/23/19 09:37 DV 01/23/19 09:35 Wound Center Nurse 2 [Procedure/Treatment] #4 LEFT ANKLE -Time 09:35 -Correct Patient Yes -Correct Side, Site, Position Yes -Correct Procedure Yes -Procedure Performed Yes -Type of Procedure Debridement -Clinical Debridement Selective -Post Debridement Size (cm) - Length 8.5 -Post Debridement Size (cm) - Width 6.8 -Post Debridement Size (cm) - Depth 0.3 -Total Square Cm 57.80 -Wound/Ulcer Outcome Not Healed -Ulcer Cleansing Rinsed/ Irrigated with Saline -Foul Odor after Cleansing No -Bioengineered Tissue No -Bleeding Controlled with Pressure -Offloading No -Treatment Response Procedure Tolerated Well [See Physician Procedure note for Specifics] Pain Scale: 0-10 Numeric [Pain] -Is Patient Pain Free? Yes Musculoskeletal: Tenderness - Some minor tenderness with manipulation of ulcer site Neurological: Sensory exam intact to light touch and pain Psych/Mental Status: Normal Affect, Appropriate Debridement Note Post-Debridement Measurements/Treatment - Nurse 2 - General Ulcer CM Notes Start: 01/02/19 09:08 Freq: Status: Active Protocol: Activity Type Activity Date Activity User E-Sign Co-Sign Detail Recorded Client Recorded Date Recorded By Document 01/02/19 09:37 DV [id number] 01/02/19 09:43 DV Document 01/09/19 10:01 DV [id number] 01/09/19 10:03 DV Document 01/23/19 09:35 DV [id number] 01/23/19 09:37 DV 01/02/19 01/09/19 01/23/19 09:37 10:01 09:35 Wound Center Nurse 2 #4 LEFT ANKLE -Time 09:38 10:02 09:35 -Correct Patient Yes Yes Yes -Correct Side, Site, Position Yes Yes Yes -Correct Procedure Yes No Yes -Procedure Performed Yes No Yes -Type of Procedure Debridement Debridement -Clinical Debridement Selective Selective -Post Debridement Size (cm) - Length 8.0 8.5 -Post Debridement Size (cm) - Width 7.0 6.8 -Post Debridement Size (cm) - Depth 0.3 0.3 -Total Square Cm 56.00 57.80 -Wound/Ulcer Outcome Not Healed Not Healed Not Healed -Ulcer Cleansing Rinsed/ Rinsed/ Irrigated with Irrigated with Saline Saline -Foul Odor after Cleansing No No -Bioengineered Tissue No No -Bleeding Controlled with Pressure Pressure -Offloading No No -Treatment Response Procedure Procedure Tolerated Well Tolerated Well Pain Scale: 0-10 Numeric Is Patient Pain Free? No Yes Wound debrided: Left medial ankle Laterality: Left Type of Debridement: Selective debridement Anesthesia Used: 4% Lidocaine Solution Depth: in the subcutaneous layer Percentage of wound debrided: 100 Instrument Used: 5mm curette Tissue Removed: Adherent slough, fibrin Severity: Fat Layer Exposed Amount of bleeding with debridement: Mild Bleeding Controlled with: Pressure Patient tolerated procedure well Assessment/Plan Assessment: Peripheral vascular occlusive disease. Nonhealing ulcers resolved. Edema Plan: Patient was carefully examined and evaluated again today. Selective debridement of ulcer site was performed as noted in the clinical panel. The base was dressed with hydrofera blue, followed by adaptic, and a dry sterile absorptive dressing. This was followed by Tubigrip for compression. Patient is to continue with augmentin, and doxycycline as instructed until complete. He has had no side effects with these. Three-view x-rays of the left foot and ankle were also ordered previously and they did not demonstrate any acute osseous abnormalities according to the report. Full report is in patient's chart. MRI was denied. Patient unalbe to tolerate almost every other dressing that has been tried to this date. Since the ulcer continues to show very slow improvement and the patient has been unable to tolerate many of the different treatment options we have tried, the patient was referred to dermatology for a consult and possible biopsy of ulcer site to gain further information. The patient saw the rn acls on Sunday, and we are awaiting a faxed report from the patient's office visit. The importance of offloading the ulcer site was discussed at length with this patient again today. He says he is unable to completely stop working, but he does have the option for light duty. He is to continue with this. I stressed the importance of keeping pressure off of all of the ulcer sites and how this will impact his healing potential. Patient was instructed to be off his feet as much as possible and to keep the lower extremities elevated while not at work. The importance of compression was also discussed with this patient today. LEAS studies were reviewed at a previous patient visit and the results are in the patient's chart. I continue to recommend nutritional supplementation with a high-protein diet at this time in order to help optimize ulcer healing potential. Smoking cessation was stressed again today. All signs and symptoms of local and systemic infection were discussed in great detail with the patient today and he was instructed to go to the emergency room immediately should he notice any of these. All questions were answered to the patient's satisfaction. Patient will follow-up in clinic in 1 week to check on progress, or sooner if needed.
== END 2019-01-26 23:59 ==
LOC: WC 09:00
PROVIDERS: Family Provider Internal Medicine Infectious Disease; PCP Internal Medicine Infectious Disease; Referring Provider Podiatrist; Visit Provider Podiatrist
DX: I73.9 Peripheral vascular disease, unspecified (principal); R60.0 Localized edema; L97.322 Non-pressure chronic ulcer of left ankle with fat layer exposed
CPT/HCPCS: 97597; 97598; 99213; G0463

== ENCOUNTER 2019-02-20 09:00 | Outpatient (RCR) | payer BC, SELFPAY ==
[2019-01-27 00:42] VITALS: BP 145/86; PULSE 78; RESP 18; TEMP 36.3
[2019-01-30 09:02] VITALS: BP 152/93; PULSE 93; RESP 20; TEMP 36.6; BMI 31.4
--- NOTE | 2019-01-30 10:39 | PCM.WC.PN ---
(1) Ulcer of left lower extremity with fat layer exposed Status: Acute Current Visit: No Code(s): L97.922 - Non-pressure chronic ulcer of unspecified part of left lower leg with fat layer exposed (2) PVD (peripheral vascular disease) Status: Acute Current Visit: No Code(s): I73.9 - Peripheral vascular disease, unspecified (3) Chronic venous insufficiency Status: Acute Current Visit: No Code(s): I87.2 - Venous insufficiency (chronic) (peripheral) (4) Edema, lower extremity Status: Acute Current Visit: No Code(s): R60.0 - Localized edema (5) Pain of left lower extremity Status: Acute Current Visit: No Code(s): M79.605 - Pain in left leg (6) Delayed wound healing Status: Acute Current Visit: No Code(s): T14.8XXD - Other injury of unspecified body region, subsequent encounter Type of Wound Chief Complaint: ulcers to the left lower leg/foot History of Wound: This is a 51-year-old white male presents to wound healing center with a long-standing history of chronic venous insufficiency, chronic venous hypertension, lower extremity edema, lower extremity pain, and 3 ulcer sites to left lower leg/foot. The patient has had multiple ulcerations in the lower extremities bilaterally, related to his chronic venous disease. He also has chronic venous stasis changes. The skin changes include hyperpigmentation. The patient has previously undergone endovenous laser ablation of the left and right great saphenous vein, the small saphenous vein, the left accessory saphenous vein, and an incompetent left calf tyre finisher and examiner vein located 15 cm proximal to the left medial malleolus. He is currently wearing graduated compression stockings which are documented to be 20-30 mmHg compression, however, he says the ones he has on are about a year old. He has new ones at home that he has not been wearing. 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 Patient says that he noticed a small area start opening on the top of his left foot about 8-10 months ago. He says he tried to doctor this on his own with old wound care supplies. He says this continued to get slightly worse. Then, about 4 months ago, he noticed the area around the medial malleolus starting to break down, and that has slowly been getting worse too. He also has a small anterior lower leg ulcer. Nothing he has done on his own to treat these areas has helped. He decided he should finally come back to the wound healing center to see if he can get the areas to heal again. Progress of Wound: Continued skin bridging noted. Ulcer remains stable this week. Patient denies any feelings of nausea, vomiting, fever, chills at this time. - Physical Exam Vital Signs Temp Pulse Resp BP 97.8 F 93 20 H 152/93 H 01/30/19 09:02 01/30/19 09:02 01/30/19 09:02 01/30/19 09:02 General: Alert, Oriented x3, Cooperative, No apparent distress Extremities: Capillary Refill Less than 3 Seconds, No Calf Tenderness - Negative Lakisha and Hough signs, Diminished Peripheral Pulses - DP and PT pulses nonpalpable, Edema - Slight lower extremity edema Skin: Ulcer/ Wound - Ulcer to left medial ankle with fat layer exposed. Very minor improvements appreciated again this week. The base is noted to be a mixture of slough, fibrin, granular tissue, biofilm, as well as some surrounding hyperkeratotic tissue. There continues to be no probing to bone, no tracking, no undermining, no surrounding or extending cellulitis, no purulence, no malodor, no increase in warmth to the ulcer site. Wound Measurements and Assessment WC - Nurse 1 - General Ulcer Measurement Start: 01/30/19 09:01 Freq: Status: Active Protocol: Activity Type Activity Date Activity User E-Sign Co-Sign Detail Recorded Client Recorded Date Recorded By Document 01/30/19 09:02 DL [id number] 01/30/19 09:10 DL 01/30/19 09:02 Wound Center Nurse 1 [Ulcer Assessment] #4 LEFT ANKLE -Current Size (cm) - Length 9.8 -Current Size (cm) - Width 7.4 -Current Size (cm) - Depth 0.3 -Total Square Cm 72.52 -Photo Taken No -Circular Undermining No -Exudate Amt Medium -Exudate Type Serosanguineous -Wound Margin Thickened -Granulation Amt Medium (34-66%) -Granulation Quality Red -Necrosis Amt Medium (34-66%) -Necrotic Tissue Type Adherent Slough -Structure Exposed N/A -Texture (Ara-wound Skin Appearance) Localized Edema Scarring -Moisture (Ara-wound Skin Appearance Maceration ) -Color (Ara-wound Skin Appearance) Erythema Hemosiderin Staining -Temperature (Ara-wound Skin No Abnormality Appearance) (Pt Warm) -Tenderness on Palpation (Ara-wound No Skin Appearance) -Ulcer Cleansing Wound Cleanser -Foul Odor after Cleansing No -Anesthetic Used 4% Lidocaine Solution [Edema Assessment] -Left Calf (cm) 35 -Left Ankle (cm) 24 - Nurse 2 - General Ulcer CM Notes Start: 01/30/19 09:01 Freq: Status: Active Protocol: Activity Type Activity Date Activity User E-Sign Co-Sign Detail Recorded Client Recorded Date Recorded By Document 01/30/19 10:12 DV [id number] 01/30/19 10:16 DV 01/30/19 10:12 Wound Center Nurse 2 [Procedure/Treatment] #4 LEFT ANKLE -Time 10:14 -Correct Patient Yes -Correct Side, Site, Position Yes -Correct Procedure No -Procedure Performed No -Wound/Ulcer Outcome Not Healed [See Physician Procedure note for Specifics] Pain Scale: 0-10 Numeric [Pain] -Is Patient Pain Free? Yes Musculoskeletal: Tenderness - Some minor tenderness with manipulation of ulcer site Neurological: Sensory exam intact to light touch and pain Psych/Mental Status: Normal Affect, Appropriate Debridement Note Post-Debridement Measurements/Treatment - Nurse 2 - General Ulcer Notes Start: 01/30/19 09:01 Freq: Status: Active Protocol: Activity Type Activity Date Activity User E-Sign Co-Sign Detail Recorded Client Recorded Date Recorded By Document 01/30/19 10:12 DV [id number] 01/30/19 10:16 DV 01/30/19 10:12 Wound Center Nurse 2 #4 LEFT ANKLE -Time 10:14 -Correct Patient Yes -Correct Side, Site, Position Yes -Correct Procedure No -Procedure Performed No -Wound/Ulcer Outcome Not Healed Pain Scale: 0-10 Numeric Is Patient Pain Free? Yes No debridement was completed today Assessment/Plan Assessment: Peripheral vascular occlusive disease. Nonhealing ulcers resolved. Edema Plan: Patient was carefully examined and evaluated again today. Some areas of slough were carefully removed using a moistened gauze. The base was dressed with hydrofera blue, followed by adaptic, and a dry sterile absorptive dressing. This was followed by Tubigrip for compression. Patient started on new prescription for Augmentin, and doxycycline since his drainage started to slightly increase once he stopped the antibiotics. He has had no side effects with these to date. Three-view x-rays of the left foot and ankle were also ordered previously and they did not demonstrate any acute osseous abnormalities according to the report. Full report is in patient's chart. MRI was denied. Patient unable to tolerate almost every other dressing that has been tried to this date. Since the ulcer continues to show very slow improvement and the patient has been unable to tolerate many of the different treatment options we have tried, the patient was referred to dermatology for a consult and possible biopsy of ulcer site to gain further information. The patient saw the client manager [employer] and his office visit note was reviewed, but we are still awaiting results from biopsy that was performed. The importance of offloading the ulcer site was discussed at length with this patient again today. He says he is unable to completely stop working, but he does have the option for light duty. He is to continue with this. I stressed the importance of keeping pressure off of all of the ulcer sites and how this will impact his healing potential. Patient was instructed to be off his feet as much as possible and to keep the lower extremities elevated while not at work. The importance of compression was also discussed with this patient today. LEAS studies were reviewed at a previous patient visit and the results are in the patient's chart. I continue to recommend nutritional supplementation with a high-protein diet at this time in order to help optimize ulcer healing potential. Smoking cessation was stressed again today. All signs and symptoms of local and systemic infection were discussed in great detail with the patient today and he was instructed to go to the emergency room immediately should he notice any of these. All questions were answered to the patient's satisfaction. Patient will follow-up in clinic in 1 week to check on progress, or sooner if needed.
[2019-02-06 09:05] VITALS: BP 153/84; PULSE 83; RESP 18; TEMP 36.8; BMI 31.4
--- NOTE | 2019-02-06 12:52 | PCM.WC.PN ---
(1) Ulcer of left lower extremity with fat layer exposed Status: Acute Current Visit: No Code(s): L97.922 - Non-pressure chronic ulcer of unspecified part of left lower leg with fat layer exposed (2) PVD (peripheral vascular disease) Status: Acute Current Visit: No Code(s): I73.9 - Peripheral vascular disease, unspecified (3) Chronic venous insufficiency Status: Acute Current Visit: No Code(s): I87.2 - Venous insufficiency (chronic) (peripheral) (4) Edema, lower extremity Status: Acute Current Visit: No Code(s): R60.0 - Localized edema (5) Pain of left lower extremity Status: Acute Current Visit: No Code(s): M79.605 - Pain in left leg (6) Delayed wound healing Status: Acute Current Visit: No Code(s): T14.8XXD - Other injury of unspecified body region, subsequent encounter Type of Wound Chief Complaint: ulcers to the left lower leg/foot History of Wound: This is a 51-year-old white male presents to wound healing center with a long-standing history of chronic venous insufficiency, chronic venous hypertension, lower extremity edema, lower extremity pain, and 3 ulcer sites to left lower leg/foot. The patient has had multiple ulcerations in the lower extremities bilaterally, related to his chronic venous disease. He also has chronic venous stasis changes. The skin changes include hyperpigmentation. The patient has previously undergone endovenous laser ablation of the left and right great saphenous vein, the small saphenous vein, the left accessory saphenous vein, and an incompetent left calf cannon pinion adjuster vein located 15 cm proximal to the left medial malleolus. He is currently wearing graduated compression stockings which are documented to be 20-30 mmHg compression, however, he says the ones he has on are about a year old. He has new ones at home that he has not been wearing. 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 Patient says that he noticed a small area start opening on the top of his left foot about 8-10 months ago. He says he tried to doctor this on his own with old wound care supplies. He says this continued to get slightly worse. Then, about 4 months ago, he noticed the area around the medial malleolus starting to break down, and that has slowly been getting worse too. He also has a small anterior lower leg ulcer. Nothing he has done on his own to treat these areas has helped. He decided he should finally come back to the wound healing center to see if he can get the areas to heal again. Progress of Wound: Stable ulcer. Ulcer remains stable this week. Patient denies any feelings of nausea, vomiting, fever, chills at this time. - Physical Exam Vital Signs Temp Pulse Resp BP 98.2 F 83 18 153/84 H 02/06/19 09:05 02/06/19 09:05 02/06/19 09:05 02/06/19 09:05 General: Alert, Oriented x3, Cooperative, No apparent distress Extremities: Capillary Refill Less than 3 Seconds, No Calf Tenderness - Negative Lakisha and Hough signs, Diminished Peripheral Pulses - DP and PT pulses are nonpalpable, Edema - Slight lower extremity edema Skin: Ulcer/ Wound - Ulcer to left medial ankle with fat layer exposed. Very minor improvements appreciated again this week. The base is noted to be a mixture of slough, fibrin, granular tissue, biofilm, as well as some surrounding hyperkeratotic tissue. There continues to be no probing to bone, no tracking, no undermining, no surrounding or extending cellulitis, no purulence, no malodor, no increase in warmth to the ulcer site. Moderate to heavy drainage noted. Wound Measurements and Assessment WC - Nurse 1 - General Ulcer Measurement Start: 01/30/19 09:01 Freq: Status: Active Protocol: Activity Type Activity Date Activity User E-Sign Co-Sign Detail Recorded Client Recorded Date Recorded By Document 02/06/19 09:05 AN [id number] 02/06/19 09:14 AN 02/06/19 09:05 Wound Center Nurse 1 [Ulcer Assessment] #4 LEFT ANKLE -Current Size (cm) - Length 9.4 -Current Size (cm) - Width 6.2 -Current Size (cm) - Depth 0.3 -Total Square Cm 58.28 -Photo Taken No -Epithelialization Small 1-33% -Tunneling No -Undermining/Tunneling No -Circular Undermining No -Classification - Thickness Full Thickness without Exposed Support Structure -Exudate Amt Medium -Exudate Type Serosanguineous -Wound Margin Distinct, Outline Attached -Granulation Amt Large (67-100%) -Granulation Quality Red -Slough/Fibrin No -Necrosis Amt Small (1-33%) -Necrotic Tissue Type Adherent Slough -Structure Exposed None/Limited to Skin Breakdown -Texture (Ara-wound Skin Appearance) Assessed -Moisture (Ara-wound Skin Appearance Assessed ) Maceration Dry/Scaly -Color (Ara-wound Skin Appearance) Assessed -Temperature (Ara-wound Skin No Abnormality Appearance) (Pt Warm) -Tenderness on Palpation (Ara-wound Yes Skin Appearance) -Ulcer Cleansing Rinsed/ Irrigated with Saline -Foul Odor after Cleansing No -Anesthetic Used 4% Lidocaine Solution [Edema Assessment] -Left Calf (cm) 34.6 -Left Ankle (cm) 25.5 - Nurse 2 - General Ulcer CM Notes Start: 01/30/19 09:01 Freq: Status: Active Protocol: Activity Type Activity Date Activity User E-Sign Co-Sign Detail Recorded Client Recorded Date Recorded By Document 02/06/19 09:22 AN [id number] 02/06/19 09:28 AN 02/06/19 09:22 Wound Center Nurse 2 [Procedure/Treatment] #4 LEFT ANKLE -Time 09:23 -Correct Patient Yes -Correct Side, Site, Position Yes -Procedure Performed No -Wound/Ulcer Outcome Not Healed [See Physician Procedure note for Specifics] Pain Scale: 0-10 Numeric [Pain] -Is Patient Pain Free? Yes Musculoskeletal: Tenderness - Some tenderness with manipulation of ulcer site Neurological: Sensory exam intact to light touch and pain Psych/Mental Status: Normal Affect, Appropriate Debridement Note Post-Debridement Measurements/Treatment - Nurse 2 - General Ulcer CM Notes Start: 01/30/19 09:01 Freq: Status: Active Protocol: Activity Type Activity Date Activity User E-Sign Co-Sign Detail Recorded Client Recorded Date Recorded By Document 01/30/19 10:12 DV [id number] 01/30/19 10:16 DV Document 02/06/19 09:22 AN [id number] 02/06/19 09:28 AN 01/30/19 02/06/19 10:12 09:22 Wound Center Nurse 2 #4 LEFT ANKLE -Time 10:14 09:23 -Correct Patient Yes Yes -Correct Side, Site, Position Yes Yes -Correct Procedure No -Procedure Performed No No -Wound/Ulcer Outcome Not Healed Not Healed Pain Scale: 0-10 Numeric Is Patient Pain Free? Yes Yes No debridement was completed today Assessment/Plan Assessment: Peripheral vascular occlusive disease. Nonhealing ulcers resolved. Edema Plan: Patient was carefully examined and evaluated again today. Some areas of slough were carefully removed using a moistened gauze. The base was dressed with hydrofera blue, followed by adaptic, and a dry sterile absorptive dressing. This was followed by Tubigrip for compression. Patient to continue Augmentin, and doxycycline as well as prednisone. He has had no side effects with these to date. Three-view x-rays of the left foot and ankle were also ordered previously and they did not demonstrate any acute osseous abnormalities according to the report. Full report is in patient's chart. MRI was denied. Patient unable to tolerate almost every other dressing that has been tried to this date. Since the ulcer continues to show very slow improvement and the patient has been unable to tolerate many of the different treatment options we have tried, the patient was referred to dermatology for a consult and possible biopsy of ulcer site to gain further information. Biopsy results were faxed to us today in the diagnosis as read by the lab was stasis dermatitis with an overlying cutaneous ulceration and reactive epidermal hyperplasia. They noted that the changes seen here are consistent with clinical impression of venous ulcer with reactive epidermal changes. Multiple deeper sections were examined. A PAS stain for fungal elements was negative. The entire path report will be in the patient's chart. He says he is unable to completely stop working, but he does have the option for light duty. He is to continue with this. I stressed the importance of keeping pressure off of all of the ulcer sites and how this will impact his healing potential. Patient was instructed to be off his feet as much as possible and to keep the lower extremities elevated while not at work. The importance of compression was also discussed with this patient today. LEAS studies were reviewed at a previous patient visit and the results are in the patient's chart. I continue to recommend nutritional supplementation with a high-protein diet at this time in order to help optimize ulcer healing potential. Smoking cessation was stressed again today. All signs and symptoms of local and systemic infection were discussed in great detail with the patient today and he was instructed to go to the emergency room immediately should he notice any of these. All questions were answered to the patient's satisfaction. Patient will follow-up in clinic in 1 week to check on progress, or sooner if needed.
[2019-02-13 09:19] VITALS: BP 141/84; PULSE 80; RESP 18; TEMP 37.1; BMI 31.4
--- NOTE | 2019-02-13 10:34 | PCM.WC.PN ---
(1) Ulcer of left lower extremity with fat layer exposed Status: Acute Current Visit: No Code(s): L97.922 - Non-pressure chronic ulcer of unspecified part of left lower leg with fat layer exposed (2) PVD (peripheral vascular disease) Status: Acute Current Visit: No Code(s): I73.9 - Peripheral vascular disease, unspecified (3) Chronic venous insufficiency Status: Acute Current Visit: No Code(s): I87.2 - Venous insufficiency (chronic) (peripheral) (4) Edema, lower extremity Status: Acute Current Visit: No Code(s): R60.0 - Localized edema (5) Pain of left lower extremity Status: Acute Current Visit: No Code(s): M79.605 - Pain in left leg (6) Delayed wound healing Status: Acute Current Visit: No Code(s): T14.8XXD - Other injury of unspecified body region, subsequent encounter Type of Wound Chief Complaint: ulcers to the left lower leg/foot History of Wound: This is a 51-year-old white male presents to wound healing center with a long-standing history of chronic venous insufficiency, chronic venous hypertension, lower extremity edema, lower extremity pain, and 3 ulcer sites to left lower leg/foot. The patient has had multiple ulcerations in the lower extremities bilaterally, related to his chronic venous disease. He also has chronic venous stasis changes. The skin changes include hyperpigmentation. The patient has previously undergone endovenous laser ablation of the left and right great saphenous vein, the small saphenous vein, the left accessory saphenous vein, and an incompetent left calf supervisor felting vein located 15 cm proximal to the left medial malleolus. He is currently wearing graduated compression stockings which are documented to be 20-30 mmHg compression, however, he says the ones he has on are about a year old. He has new ones at home that he has not been wearing. 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 Patient says that he noticed a small area start opening on the top of his left foot about 8-10 months ago. He says he tried to doctor this on his own with old wound care supplies. He says this continued to get slightly worse. Then, about 4 months ago, he noticed the area around the medial malleolus starting to break down, and that has slowly been getting worse too. He also has a small anterior lower leg ulcer. Nothing he has done on his own to treat these areas has helped. He decided he should finally come back to the wound healing center to see if he can get the areas to heal again. Progress of Wound: Stable ulcer. Patient denies any feelings of nausea, vomiting, fever, chills at this time. - Physical Exam Vital Signs Temp Pulse Resp BP 98.7 F 80 18 141/84 H 02/13/19 09:19 02/13/19 09:19 02/13/19 09:19 02/13/19 09:19 General: Alert, Oriented x3, Cooperative, No apparent distress Extremities: Capillary Refill Less than 3 Seconds, No Calf Tenderness - Negative Lakisha and Hough signs, Diminished Peripheral Pulses - DP and PT pulses are nonpalpable, Edema - Lower extremity edema Skin: Ulcer/ Wound - Ulcer to left medial ankle with fat layer exposed. Very minor improvements appreciated again this week. The base is noted to be a mixture of slough, fibrin, granular tissue, biofilm, as well as some surrounding hyperkeratotic tissue. There continues to be no probing to bone, no tracking, no undermining, no surrounding or extending cellulitis, no purulence, no malodor, no increase in warmth to the ulcer site. Moderate to heavy drainage noted. Wound Measurements and Assessment WC - Nurse 1 - General Ulcer Measurement Start: 01/30/19 09:01 Freq: Status: Active Protocol: Activity Type Activity Date Activity User E-Sign Co-Sign Detail Recorded Client Recorded Date Recorded By Document 02/13/19 09:19 [id number] 02/13/19 09:23 RB 02/13/19 09:19 Wound Center Nurse 1 [Ulcer Assessment] #4 LEFT ANKLE -Combined with other wound No -Current Size (cm) - Length 9.5 -Current Size (cm) - Width 5.8 -Current Size (cm) - Depth 0.3 -Total Square Cm 55.10 -Tunneling No -Undermining/Tunneling No -Circular Undermining No -Exudate Amt Small -Exudate Type Serosanguineous -Wound Margin Distinct, Outline Attached -Granulation Amt Medium (34-66%) -Granulation Quality [place] Red -Slough/Fibrin Yes -Necrosis Amt Medium (34-66%) -Necrotic Tissue Type Adherent Slough -Structure Exposed N/A -Texture (Ara-wound Skin Appearance) Assessed -Moisture (Ara-wound Skin Appearance Maceration ) -Color (Ara-wound Skin Appearance) Assessed -Temperature (Ara-wound Skin No Abnormality Appearance) (Pt Warm) -Tenderness on Palpation (Ara-wound No Skin Appearance) -Ulcer Cleansing Rinsed/ Irrigated with Saline -Foul Odor after Cleansing No -Anesthetic Used 4% Lidocaine Solution [Edema Assessment] -Lower Limb Edema Present Yes -Left Calf (cm) 35.7 -Left Ankle (cm) 23.5 WC - Nurse 2 - General Ulcer CM Notes Start: 01/30/19 09:01 Freq: Status: Active Protocol: Activity Type Activity Date Activity User E-Sign Co-Sign Detail Recorded Client Recorded Date Recorded By Document 02/13/19 09:48 DV [id number] 02/13/19 09:52 DV 02/13/19 09:48 Wound Center Nurse 2 [Procedure/Treatment] #4 LEFT ANKLE -Time 09:49 -Correct Patient Yes -Correct Side, Site, Position Yes -Correct Procedure No -Procedure Performed No -Wound/Ulcer Outcome Not Healed [See Physician Procedure note for Specifics] Pain Scale: 0-10 Numeric [Pain] -Is Patient Pain Free? Yes Musculoskeletal: Tenderness - Tenderness in some areas with manipulation of ulcer site Neurological: Sensory exam intact to light touch and pain Psych/Mental Status: Normal Affect, Appropriate Debridement Note Post-Debridement Measurements/Treatment - Nurse 2 - General Ulcer CM Notes Start: 01/30/19 09:01 Freq: Status: Active Protocol: Activity Type Activity Date Activity User E-Sign Co-Sign Detail Recorded Client Recorded Date Recorded By Document 01/30/19 10:12 DV [id number] 01/30/19 10:16 DV Document 02/06/19 09:22 AN [id number] 02/06/19 09:28 AN Document 02/13/19 09:48 DV [id number] 02/13/19 09:52 DV 01/30/19 02/06/19 02/13/19 10:12 09:22 09:48 Wound Center Nurse 2 #4 LEFT ANKLE -Time 10:14 09:23 09:49 -Correct Patient Yes Yes Yes -Correct Side, Site, Position Yes Yes Yes -Correct Procedure No No -Procedure Performed No No No -Wound/Ulcer Outcome Not Healed Not Healed Not Healed Pain Scale: 0-10 Numeric Is Patient Pain Free? Yes Yes Yes No debridement was completed today Assessment/Plan Assessment: Peripheral vascular occlusive disease. Nonhealing ulcers resolved. Edema Plan: Patient was carefully examined and evaluated again today. Some areas of slough were carefully removed using a moistened gauze. No aggressive debridement again today. The base was dressed with hydrofera blue, followed by adaptic, and a dry sterile absorptive dressing. This was followed by Tubigrip for compression. Patient to continue Augmentin, and doxycycline as well as prednisone. He has had no side effects with these to date. Three-view x-rays of the left foot and ankle were also ordered previously and they did not demonstrate any acute osseous abnormalities according to the report. Full report is in patient's chart. MRI was denied. Patient unable to tolerate almost every other dressing that has been tried to this date. Since the ulcer continues to show very slow improvement and the patient has been unable to tolerate many of the different treatment options we have tried, the patient was referred to dermatology for a consult and possible biopsy of ulcer site to gain further information. Biopsy results showed diagnosis as read by the lab: stasis dermatitis with an overlying cutaneous ulceration and reactive epidermal hyperplasia. They noted that the changes seen here are consistent with clinical impression of venous ulcer with reactive epidermal changes. Multiple deeper sections were examined. A PAS stain for fungal elements was negative. The entire path report will be in the patient's chart. He says he is unable to completely stop working, but he does have the option for light duty. He is to continue with this. I stressed the importance of keeping pressure off of all of the ulcer sites and how this will impact his healing potential. Patient was instructed to be off his feet as much as possible and to keep the lower extremities elevated while not at work. The importance of compression was also discussed with this patient today. LEAS studies were reviewed at a previous patient visit and the results are in the patient's chart. I continue to recommend nutritional supplementation with a high-protein diet at this time in order to help optimize ulcer healing potential. Smoking cessation was stressed again today. All signs and symptoms of local and systemic infection were discussed in great detail with the patient today and he was instructed to go to the emergency room immediately should he notice any of these. All questions were answered to the patient's satisfaction. Patient will follow-up in clinic in 1 week to check on progress, or sooner if needed.
--- NOTE | 2019-02-13 10:37 | PN.PCM_ITS ---
(1) Ulcer of left lower extremity with fat layer exposed Status: Acute Current Visit: No Code(s): L97.922 - Non-pressure chronic ulcer of unspecified part of left lower leg with fat layer exposed (2) PVD (peripheral vascular disease) Status: Acute Current Visit: No Code(s): I73.9 - Peripheral vascular disease, unspecified (3) Chronic venous insufficiency Status: Acute Current Visit: No Code(s): I87.2 - Venous insufficiency (chronic) (peripheral) (4) Edema, lower extremity Status: Acute Current Visit: No Code(s): R60.0 - Localized edema (5) Pain of left lower extremity Status: Acute Current Visit: No Code(s): M79.605 - Pain in left leg (6) Delayed wound healing Status: Acute Current Visit: No Code(s): T14.8XXD - Other injury of unspecified body region, subsequent encounter Type of Wound Chief Complaint: ulcers to the left lower leg/foot History of Wound: This is a 51-year-old white male presents to wound healing center with a long-standing history of chronic venous insufficiency, chronic venous hypertension, lower extremity edema, lower extremity pain, and 3 ulcer sites to left lower leg/foot. The patient has had multiple ulcerations in the lower extremities bilaterally, related to his chronic venous disease. He also has chronic venous stasis changes. The skin changes include hyperpigmentation. The patient has previously undergone endovenous laser ablation of the left and right great saphenous vein, the small saphenous vein, the left accessory saphenous vein, and an incompetent left calf salicylic acid blender vein located 15 cm p roximal to the left medial malleolus. He is currently wearing graduated compression stockings which are documented to be 20-30 mmHg compression, however, he says the ones he has on are about a year old. He has new ones at home that he has not been wearing. 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 Patient says that he noticed a small area start opening on the top of his left foot about 8-10 months ago. He says he tried to doctor this on his own with old wound care supplies. He says this continued to get slightly worse. Then, about 4 months ago, he noticed the area around the medial malleolus starting to break down, and that has slowly been getting worse too. He also has a small anterior lower leg ulcer. Nothing he has done on his own to treat these areas has helped. He decided he should finally come back to the wound healing center to see if he can get the areas to heal again. Progress of Wound: Stable ulcer. Patient denies any feelings of nausea, vomiting, fever, chills at this time. - Physical Exam Vital Signs Temp Pulse Resp BP 98.7 F 80 18 141/84 H 02/13/19 09:19 02/13/19 09:19 02/13/19 09:19 02/13/19 09:19 General: Alert, Oriented x3, Cooperative, No apparent distress Extremities: Capillary Refill Less than 3 Seconds, No Calf Tenderness - Negative Lakisha and Hough signs, Diminished Peripheral Pulses - DP and PT pulses are nonpalpable, Edema - Lower extremity edema Skin: Ulcer/ Wound - Ulcer to left medial ankle with fat layer exposed. Very minor improvements appreciated again this week. The base is noted to be a mixture of slough, fibrin, granular tissue, biofilm, as well as some surrounding hyperkeratotic tissue. There continues to be no probing to bone, no tracking, no undermining, no surrounding or extending cellulitis, no purulence, no malodor, no increase in warmth to the ulcer site. Moderate to heavy drainage noted. Wound Measurements and Assessment WC - Nurse 1 - General Ulcer Measurement Start: 01/30/19 09:01 Freq: Status: Active Protocol: Activity Type Activity Date Activity User E-Sign Co-Sign Detail Recorded Client Recorded Date Recorded By Document 02/13/19 09:19 [id number] 02/13/19 09:23 RB 02/13/19 09:19 Wound Center Nurse 1 [Ulcer Assessment] #4 LEFT ANKLE -Combined with other wound No -Current Size (cm) - Length 9.5 -Current Size (cm) - Width 5.8 -Current Size (cm) - Depth 0.3 -Total Square Cm 55.10 -Tunneling No -Undermining/Tunneling No -Circular Undermining No -Exudate Amt Small -Exudate Type Serosanguineous -Wound Margin Distinct, Outline Attached -Granulation Amt Medium (34-66%) -Granulation Quality [place] Red -Slough/Fibrin Yes -Necrosis Amt Medium (34-66%) -Necrotic Tissue Type Adherent Slough -Structure Exposed N/A -Texture (Ara-wound Skin Appearance) Assessed -Moisture (Ara-wound Skin Appearance Maceration ) -Color (Ara-wound Skin Appearance) Assessed -Temperature (Ara-wound Skin No Abnormality Appearance) (Pt Warm) -Tenderness on Palpation (Ara-wound No Skin Appearance) -Ulcer Cleansing Rinsed/ Irrigated with Saline -Foul Odor after Cleansing No -Anesthetic Used 4% Lidocaine Solution [Edema Assessment] -Lower Limb Edema Present Yes -Left Calf (cm) 35.7 -Left Ankle (cm) 23.5 WC - Nurse 2 - General Ulcer CM Notes Start: 01/30/19 09:01 Freq: Status: Active Protocol: Activity Type Activity Date Activity User E-Sign Co-Sign Detail Recorded Client Recorded Date Recorded By Document 02/13/19 09:48 DV [id number] 02/13/19 09:52 DV 02/13/19 09:48 Wound Center Nurse 2 [Procedure/Treatment] #4 LEFT ANKLE -Time 09:49 -Correct Patient Yes -Correct Side, Site, Position Yes -Correct Procedure No -Procedure Performed No -Wound/Ulcer Outcome Not Healed [See Physician Procedure note for Specifics] Pain Scale: 0-10 Numeric [Pain] -Is Patient Pain Free? Yes Musculoskeletal: Tenderness - Tenderness in some areas with manipulation of ulcer site Neurological: Sensory exam intact to light touch and pain Psych/Mental Status: Normal Affect, Appropriate Debridement Note Post-Debridement Measurements/Treatment - Nurse 2 - General Ulcer CM Notes Start: 01/30/19 09:01 Freq: Status: Active Protocol: Activity Type Activity Date Activity User E-Sign Co-Sign Detail Recorded Client Recorded Date Recorded By Document 01/30/19 10:12 DV [id number] 01/30/19 10:16 DV Document 02/06/19 09:22 AN [id number] 02/06/19 09:28 AN Document 02/13/19 09:48 DV [id number] 02/13/19 09:52 DV 01/30/19 02/06/19 02/13/19 10:12 09:22 09:48 Wound Center Nurse 2 #4 LEFT ANKLE -Time 10:14 09:23 09:49 -Correct Patient Yes Yes Yes -Correct Side, Site, Position Yes Yes Yes -Correct Procedure No No -Procedure Performed No No No -Wound/Ulcer Outcome Not Healed Not Healed Not Healed Pain Scale: 0-10 Numeric Is Patient Pain Free? Yes Yes Yes No debridement was completed today Assessment/Plan Assessment: Peripheral vascular occlusive disease. Nonhealing ulcers resolved. Edema Plan: Patient was carefully examined and evaluated again today. Some areas of slough were carefully removed using a moistened gauze. No aggressive debridement again today. The base was dressed with hydrofera blue, followed by adaptic, and a dry sterile absorptive dressing. This was followed by Tubigrip for compression. Patient to continue Augmentin, and doxycycline as well as prednisone. He has had no side effects with these to date. Three-view x-rays of the left foot and ankle were also ordered previously and they did not dem onstrate any acute osseous abnormalities according to the report. Full report is in patient's chart. MRI was denied. Patient unable to tolerate almost every other dressing that has been tried to this date. Since the ulcer continues to show very slow improvement and the patient has been unable to tolerate many of the different treatment options we have tried, the patient was referred to dermatology for a consult and possible biopsy of ulcer site to gain further information. Biopsy results showed diagnosis as read by the lab: stasis dermatitis with an overlying cutaneous ulceration and reactive epidermal hyperplasia. They noted that the changes seen here are consistent with clinical impression of venous ulcer with reactive epidermal changes. Multiple deeper sections were examined. A PAS stain for fungal elements was negative. The entire path report will be in the patient's chart. He says he is unable to completely stop working, but he does have the option for light duty. He is to c dina with this. I stressed the importance of keeping pressure off of all of the ulcer sites and how this will impact his healing potential. Patient was instructed to be off his feet as much as possible and to keep the lower extremities elevated while not at work. The importance of compression was also discussed with this patient today. LEAS studies were reviewed at a previous patient visit and the results are in the patient's chart. I continue to recommend nutritional supplementation with a high-protein diet at this time in order to help optimize ulcer healing potential. Smoking cessation was stressed again today. All signs and symptoms of local and systemic infection were discussed in great detail with the patient today and he was instructed to go to the emergency room immediately should he notice any of these. All questions were answered to the patient's satisfaction. Patient will follow-up in clinic in 1 week to check on progress, or sooner if needed.
[2019-02-20 09:04] VITALS: BP 155/99; PULSE 84; RESP 18; TEMP 36.7; BMI 31.4
--- NOTE | 2019-02-20 09:21 | PCM.WC.PN ---
(1) Ulcer of left lower extremity with fat layer exposed Status: Acute Current Visit: No Code(s): L97.922 - Non-pressure chronic ulcer of unspecified part of left lower leg with fat layer exposed (2) PVD (peripheral vascular disease) Status: Acute Current Visit: No Code(s): I73.9 - Peripheral vascular disease, unspecified (3) Chronic venous insufficiency Status: Acute Current Visit: No Code(s): I87.2 - Venous insufficiency (chronic) (peripheral) (4) Edema, lower extremity Status: Acute Current Visit: No Code(s): R60.0 - Localized edema (5) Pain of left lower extremity Status: Acute Current Visit: No Code(s): M79.605 - Pain in left leg (6) Delayed wound healing Status: Acute Current Visit: No Code(s): T14.8XXD - Other injury of unspecified body region, subsequent encounter Type of Wound Chief Complaint: ulcers to the left lower leg/foot History of Wound: This is a 51-year-old white male presents to wound healing center with a long-standing history of chronic venous insufficiency, chronic venous hypertension, lower extremity edema, lower extremity pain, and 3 ulcer sites to left lower leg/foot. The patient has had multiple ulcerations in the lower extremities bilaterally, related to his chronic venous disease. He also has chronic venous stasis changes. The skin changes include hyperpigmentation. The patient has previously undergone endovenous laser ablation of the left and right great saphenous vein, the small saphenous vein, the left accessory saphenous vein, and an incompetent left calf manager integrated vein located 15 cm proximal to the left medial malleolus. He is currently wearing graduated compression stockings which are documented to be 20-30 mmHg compression, however, he says the ones he has on are about a year old. He has new ones at home that he has not been wearing. 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 Patient says that he noticed a small area start opening on the top of his left foot about 8-10 months ago. He says he tried to doctor this on his own with old wound care supplies. He says this continued to get slightly worse. Then, about 4 months ago, he noticed the area around the medial malleolus starting to break down, and that has slowly been getting worse too. He also has a small anterior lower leg ulcer. Nothing he has done on his own to treat these areas has helped. He decided he should finally come back to the wound healing center to see if he can get the areas to heal again. Progress of Wound: Stable ulcer. Patient denies any feelings of nausea, vomiting, fever, chills at this time. - Physical Exam Vital Signs Temp Pulse Resp BP 98.0 F 84 18 155/99 H 02/20/19 09:04 02/20/19 09:04 02/20/19 09:04 02/20/19 09:04 General: Alert, Oriented x3, Cooperative, No apparent distress Extremities: Capillary Refill Less than 3 Seconds, No Calf Tenderness - Negative Lakisha and Hough signs, Diminished Peripheral Pulses - DP and PT pulses are nonpalpable, Edema - Lower extremity edema Skin: Ulcer/ Wound - Ulcer to left medial ankle with fat layer exposed. Very minor improvements appreciated again this week. The base is noted to be a mixture of slough, fibrin, granular tissue, biofilm, as well as some surrounding hyperkeratotic tissue. There continues to be no probing to bone, no tracking, no undermining, no surrounding or extending cellulitis, no purulence, no malodor, no increase in warmth to the ulcer site. Moderate to heavy drainage noted. Wound Measurements and Assessment WC - Nurse 1 - General Ulcer Measurement Start: 01/30/19 09:01 Freq: Status: Active Protocol: Activity Type Activity Date Activity User E-Sign Co-Sign Detail Recorded Client Recorded Date Recorded By Document 02/20/19 09:04 NC [id number] 02/20/19 09:08 NC 02/20/19 09:04 Wound Center Nurse 1 [Ulcer Assessment] #4 LEFT ANKLE -Combined with other wound No -Current Size (cm) - Length 10 -Current Size (cm) - Width 6.5 -Current Size (cm) - Depth 0.5 -Total Square Cm 65.0 -Photo Taken No -Undermining/Tunneling No -Exudate Amt Medium -Exudate Type Serosanguineous -Wound Margin Thickened & Rolled Under -Granulation Amt Medium (34-66%) -Granulation Quality Pale [place] -Necrosis Amt Medium (34-66%) -Necrotic Tissue Type Adherent Slough -Texture (Ara-wound Skin Appearance) Assessed Scarring -Moisture (Ara-wound Skin Appearance Assessed ) -Color (Ara-wound Skin Appearance) Assessed Hemosiderin Staining -Temperature (Ara-wound Skin No Abnormality Appearance) (Pt Warm) -Tenderness on Palpation (Ara-wound No Skin Appearance) -Ulcer Cleansing Rinsed/ Irrigated with Saline -Foul Odor after Cleansing No -Anesthetic Used 4% Lidocaine Solution [Edema Assessment] -Lower Limb Edema Present Yes -Left Calf (cm) 35.7 -Left Ankle (cm) 23.5 Musculoskeletal: Tenderness - Some areas with manipulation of ulcer site Neurological: Sensory exam intact to light touch and pain Psych/Mental Status: Normal Affect, Appropriate Debridement Note Post-Debridement Measurements/Treatment WC - Nurse 2 - General Ulcer CM Notes Start: 01/30/19 09:01 Freq: Status: Active Protocol: Activity Type Activity Date Activity User E-Sign Co-Sign Detail Recorded Client Recorded Date Recorded By Document 01/30/19 10:12 DV [id number] 01/30/19 10:16 DV Document 02/06/19 09:22 AN [id number] 02/06/19 09:28 AN Document 02/13/19 09:48 DV [id number] 02/13/19 09:52 DV 01/30/19 02/06/19 02/13/19 10:12 09:22 09:48 Wound Center Nurse 2 #4 LEFT ANKLE -Time 10:14 09:23 09:49 -Correct Patient Yes Yes Yes -Correct Side, Site, Position Yes Yes Yes -Correct Procedure No No -Procedure Performed No No No -Wound/Ulcer Outcome Not Healed Not Healed Not Healed Pain Scale: 0-10 Numeric Is Patient Pain Free? Yes Yes Yes No debridement was completed today Assessment/Plan Assessment: Peripheral vascular occlusive disease. Nonhealing ulcers resolved. Edema Plan: Patient was carefully examined and evaluated again today. Some areas of slough were carefully removed using a moistened gauze. No aggressive debridement again today. The base was dressed with hydrofera blue, followed by adaptic, and a dry sterile absorptive dressing. This was followed by Tubigrip for compression. Patient to continue with prednisone. He has had no side effects with these to date. Three-view x-rays of the left foot and ankle were also ordered previously and they did not demonstrate any acute osseous abnormalities according to the report. Full report is in patient's chart. MRI was denied. Patient unable to tolerate almost every other dressing that has been tried to this date. Since the ulcer continues to show very slow improvement and the patient has been unable to tolerate many of the different treatment options we have tried, the patient was referred to dermatology for a consult and possible biopsy of ulcer site to gain further information. Biopsy results showed diagnosis as read by the lab: stasis dermatitis with an overlying cutaneous ulceration and reactive epidermal hyperplasia. They noted that the changes seen here are consistent with clinical impression of venous ulcer with reactive epidermal changes. Multiple deeper sections were examined. A PAS stain for fungal elements was negative. The entire path report will be in the patient's chart. He says he is unable to completely stop working, but he does have the option for light duty. We will also refer patient to vascular surgery at this time to see if there is anything they can do to help optimize patient's healing potential. He is to continue with this. I stressed the importance of keeping pressure off of all of the ulcer sites and how this will impact his healing potential. Patient was instructed to be off his feet as much as possible and to keep the lower extremities elevated while not at work. The importance of compression was also discussed with this patient today. LEAS studies were reviewed at a previous patient visit and the results are in the patient's chart. I continue to recommend nutritional supplementation with a high-protein diet at this time in order to help optimize ulcer healing potential. Smoking cessation was stressed again today. All signs and symptoms of local and systemic infection were discussed in great detail with the patient today and he was instructed to go to the emergency room immediately should he notice any of these. All questions were answered to the patient's satisfaction. Patient will follow-up in clinic in 1 week to check on progress, or sooner if needed.
--- NOTE | 2019-02-20 09:26 | PN.PCM_ITS ---
(1) Ulcer of left lower extremity with fat layer exposed Status: Acute Current Visit: No Code(s): L97.922 - Non-pressure chronic ulcer of unspecified part of left lower leg with fat layer exposed (2) PVD (peripheral vascular disease) Status: Acute Current Visit: No Code(s): I73.9 - Peripheral vascular disease, unspecified (3) Chronic venous insufficiency Status: Acute Current Visit: No Code(s): I87.2 - Venous insufficiency (chronic) (peripheral) (4) Edema, lower extremity Status: Acute Current Visit: No Code(s): R60.0 - Localized edema (5) Pain of left lower extremity Status: Acute Current Visit: No Code(s): M79.605 - Pain in left leg (6) Delayed wound healing Status: Acute Current Visit: No Code(s): T14.8XXD - Other injury of unspecified body region, subsequent encounter Type of Wound Chief Complaint: ulcers to the left lower leg/foot History of Wound: This is a 51-year-old white male presents to wound healing center with a long-standing history of chronic venous insufficiency, chronic venous hypertension, lower extremity edema, lower extremity pain, and 3 ulcer sites to left lower leg/foot. The patient has had multiple ulcerations in the lower extremities bilaterally, related to his chronic venous disease. He also has chronic venous stasis changes. The skin changes include hyperpigmentation. 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 He is currently wearing graduated compression stockings which are documented to be 20-30 mmHg compression, however, he says the ones he has on are about a year old. He has new ones at home that he has not been wearing. 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 Patient says that he noticed a small area start opening on the top of his left foot about 8-10 months ago. He says he tried to doctor this on his own with old wound care supplies. He says this continued to get slightly worse. Then, about 4 months ago, he noticed the area around the medial malleolus starting to break down, and that has slowly been getting worse too. He also has a small anterior lower leg ulcer. Nothing he has done on his own to treat these areas has helped. He decided he should finally come back to the wound healing center to see if he can get the areas to heal again. Progress of Wound: Stable ulcer. Patient denies any feelings of nausea, vomiting, fever, chills at this time. - Physical Exam Vital Signs Temp Pulse Resp BP 98.0 F 84 18 155/99 H 02/20/19 09:04 02/20/19 09:04 02/20/19 09:04 02/20/19 09:04 General: Alert, Oriented x3, Cooperative, No apparent distress Extremities: Capillary Refill Less than 3 Seconds, No Calf Tenderness - Negative Lakisha and Hough signs, Diminished Peripheral Pulses - DP and PT pulses are nonpalpable, Edema - Lower extremity edema Skin: Ulcer/ Wound - Ulcer to left medial ankle with fat layer exposed. Very minor improvements appreciated again this week. The base is noted to be a mixture of slough, fibrin, granular tissue, biofilm, as well as some surrounding hyperkeratotic tissue. There continues to be no probing to bone, no tracking, no undermining, no surrounding or extending cellulitis, no purulence, no malodor, no increase in warmth to the ulcer site. Moderate to heavy drainage noted. Wound Measurements and Assessment WC - Nurse 1 - General Ulcer Measurement Start: 01/30/19 09:01 Freq: Status: Active Protocol: Activity Type Activity Date Activity User E-Sign Co-Sign Detail Recorded Client Recorded Date Recorded By Document 02/20/19 09:04 VA [id number] 02/20/19 09:08 VA 02/20/19 09:04 Wound Center Nurse 1 [Ulcer Assessment] #4 LEFT ANKLE -Combined with other wound No -Current Size (cm) - Length 10 -Current Size (cm) - Width 6.5 -Current Size (cm) - Depth 0.5 -Total Square Cm 65.0 -Photo Taken No -Undermining/Tunneling No -Exudate Amt Medium -Exudate Type Serosanguineous -Wound Margin Thickened & Rolled Under -Granulation Amt Medium (34-66%) -Granulation Quality Pale [place] -Necrosis Amt Medium (34-66%) -Necrotic Tissue Type Adherent Slough -Texture (Ara-wound Skin Appearance) Assessed Scarring -Moisture (Ara-wound Skin Appearance Assessed ) -Color (Ara-wound Skin Appearance) Assessed Hemosiderin Staining -Temperature (Ara-wound Skin No Abnormality Appearance) (Pt Warm) -Tenderness on Palpation (Ara-wound No Skin Appearance) -Ulcer Cleansing Rinsed/ Irrigated with Saline -Foul Odor after Cleansing No -Anesthetic Used 4% Lidocaine Solution [Edema Assessment] -Lower Limb Edema Present Yes -Left Calf (cm) 35.7 -Left Ankle (cm) 23.5 Musculoskeletal: Tenderness - Some areas with manipulation of ulcer site Neurological: Sensory exam intact to light touch and pain Psych/Mental Status: Normal Affect, Appropriate Debridement Note Post-Debridement Measurements/Treatment WC - Nurse 2 - General Ulcer CM Notes Start: 01/30/19 09:01 Freq: Status: Active Protocol: Activity Type Activity Date Activity User E-Sign Co-Sign Detail Recorded Client Recorded Date Recorded By Document 01/30/19 10:12 DV [id number] 01/30/19 10:16 DV Document 02/06/19 09:22 AN [id number] 02/06/19 09:28 AN Document 02/13/19 09:48 DV [id number] 02/13/19 09:52 DV 01/30/19 02/06/19 02/13/19 10:12 09:22 09:48 Wound Center Nurse 2 #4 LEFT ANKLE -Time 10:14 09:23 09:49 -Correct Patient Yes Yes Yes -Correct Side, Site, Position Yes Yes Yes -Correct Procedure No No -Procedure Performed No No No -Wound/Ulcer Outcome Not Healed Not Healed Not Healed Pain Scale: 0-10 Numeric Is Patient Pain Free? Yes Yes Yes No debridement was completed today Assessment/Plan Assessment: Peripheral vascular occlusive disease. Nonhealing ulcers resolved. Edema Plan: Patient was carefully examined and evaluated again today. Some areas of slough were carefully removed using a moistened gauze. No aggressive debridement again today. The base was dressed with hydrofera blue, followed by adaptic, and a dry sterile absorptive dressing. This was followed by Tubigrip for compression. Patient to continue with prednisone. He has had no side effects with these to date. Three-view x-rays of the left foot and ankle were also ordered previously and they did not demonstrate any acute osseous abnormalities according to the report. Full report is in patient's chart. MRI was denied. Patient unable to tolerate almost every other dressing that has been tried to this date. Since the ulcer continues to show very slow improvement and the patient has been unable to tolerate many of the different treatment options we have tried, the patient was referred to dermatology for a consult and possible biopsy of ulcer site to gain further information. Biopsy results showed diagnosis as read by the lab: stasis dermatitis with an overlying cutaneous ulceration and reactive epidermal hyperplasia. They noted that the changes seen here are consistent with clinical impression of venous ulcer with reactive epidermal changes. Multiple deeper sections were examined. A PAS stain for fungal elements was negative. The entire path report will be in the patient's chart. He says he is unable to completely stop working, but he does have the option for light duty. We will also refer patient to vascular surgery at this time to see if there is anything they can do to help optimize patient's healing potential. He is to continue with this. I stressed the importance of keeping pressure off of all of the ulcer sites and how this will impact his healing p otential. Patient was instructed to be off his feet as much as possible and to keep the lower extremities elevated while not at work. The importance of compression was also discussed with this patient today. LEAS studies were reviewed at a previous patient visit and the results are in the patient's chart. I continue to recommend nutritional supplementation with a high-protein diet at this time in order to help optimize ulcer healing potential. Smoking cessation was stressed again today. All signs and symptoms of local and systemic infection were discussed in great detail with the patient today and he was instructed to go to the emergency room immediately should he notice any of these. All questions were answered to the patient's satisfaction. Patient will follow-up in clinic in 1 week to check on progress, or sooner if needed.
== END 2019-02-25 23:59 ==
LOC: WC 09:00
PROVIDERS: Family Provider Internal Medicine Infectious Disease; PCP Internal Medicine Infectious Disease; Referring Provider Podiatrist; Visit Provider Podiatrist
DX: I73.9 Peripheral vascular disease, unspecified (principal); R60.0 Localized edema; I87.2 Venous insufficiency (chronic) (peripheral); M79.605 Pain in left leg
CPT/HCPCS: 99213; G0463

== ENCOUNTER 2019-04-10 09:00 | Outpatient (RCR) | payer BC, SELFPAY ==
[2019-02-26 00:54] VITALS: BP 155/99; PULSE 84; RESP 18; TEMP 36.7
[2019-02-27 09:01] VITALS: BP 166/74; PULSE 89; RESP 18; TEMP 36.9; BMI 31.4
--- NOTE | 2019-02-27 11:55 | PN.PCM_ITS ---
(1) Ulcer of left lower extremity with fat layer exposed Status: Acute Current Visit: No Code(s): L97.922 - Non-pressure chronic ulcer of unspecified part of left lower leg with fat layer exposed (2) PVD (peripheral vascular disease) Status: Acute Current Visit: No Code(s): I73.9 - Peripheral vascular disease, unspecified (3) Chronic venous insufficiency Status: Acute Current Visit: No Code(s): I87.2 - Venous insufficiency (chronic) (peripheral) (4) Edema, lower extremity Status: Acute Current Visit: No Code(s): R60.0 - Localized edema (5) Pain of left lower extremity Status: Acute Current Visit: No Code(s): M79.605 - Pain in left leg (6) Delayed wound healing Status: Acute Current Visit: No Code(s): T14.8XXD - Other injury of unspecified body region, subsequent encounter Type of Wound Chief Complaint: ulcers to the left lower leg/foot History of Wound: This is a 51-year-old white male presents to wound healing center with a long-standing history of chronic venous insufficiency, chronic venous hypertension, lower extremity edema, lower extremity pain, and 3 ulcer sites to left lower leg/foot. The patient has had multiple ulcerations in the lower extremities bilaterally, related to his chronic venous disease. He also has chronic venous stasis changes. The skin changes include hyperpigmentation. 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 He is currently wearing graduated compression stockings which are documented to be 20-30 mmHg compression, however, he says the ones he has on are about a year old. He has new ones at home that he has not been wearing. 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 Patient says that he noticed a small area start opening on the top of his left foot about 8-10 months ago. He says he tried to doctor this on his own with old wound care supplies. He says this continued to get slightly worse. Then, about 4 months ago, he noticed the area around the medial malleolus starting to break down, and that has slowly been getting worse too. He also has a small anterior lower leg ulcer. Nothing he has done on his own to treat these areas has helped. He decided he should finally come back to the wound healing center to see if he can get the areas to heal again. Progress of Wound: Ulcer larger this week. Patient denies any feelings of nausea, vomiting, fever, chills at this time. - Physical Exam Vital Signs Temp Pulse Resp BP 98.4 F 89 18 166/74 H 02/27/19 09:01 02/27/19 09:01 02/27/19 09:01 02/27/19 09:01 General: Alert, Oriented x3, Cooperative, No apparent distress Extremities: Capillary Refill Less than 3 Seconds, No Calf Tenderness - Negative Lakisha and Hough signs, Diminished Peripheral Pulses, Edema - Lower extremity edema Skin: Ulcer/ Wound - Ulcer to left medial ankle with fat layer exposed. Ulcer has increased in size over the last week. The base is noted to be a mixture of slough, fibrin, granular tissue, biofilm, as well as some surrounding hyperkeratotic tissue. There continues to be no probing to bone, no tracking, no undermining, no surrounding or extending cellulitis, no purulence, no malodor, no increase in warmth to the ulcer site. Moderate to heavy drainage noted. Wound Measurements and Assessment WC - Nurse 1 - General Ulcer Measurement Start: 02/27/19 09:01 Freq: Status: Active Protocol: Activity Type Activity Date Activity User E-Sign Co-Sign Detail Recorded Client Recorded Date Recorded By Document 02/27/19 09: TRIPP [id number] 02/27/19 09:09 RB 02/27/19 09:01 Wound Center Nurse 1 [Ulcer Assessment] #4 LEFT ANKLE -Combined with other wound No -Current Size (cm) - Length 11 -Current Size (cm) - Width 8.5 -Current Size (cm) - Depth 0.3 -Total Square Cm 93.5 -Tunneling No -Undermining/Tunneling No -Circular Undermining No -Exudate Amt Medium -Exudate Type Serosanguineous -Wound Margin Thickened & Rolled Under -Granulation Amt Medium (34-66%) -Granulation Quality [place] -Slough/Fibrin Yes -Necrosis Amt Medium (34-66%) -Necrotic Tissue Type Adherent Slough -Structure Exposed N/A -Texture (Ara-wound Skin Appearance) Assessed -Moisture (Ara-wound Skin Appearance Maceration ) Dry/Scaly -Color (Ara-wound Skin Appearance) Erythema -Temperature (Ara-wound Skin No Abnormality Appearance) (Pt Warm) -Tenderness on Palpation (Ara-wound No Skin Appearance) -Ulcer Cleansing Rinsed/ Irrigated with Saline -Foul Odor after Cleansing No -Anesthetic Used 4% Lidocaine Solution [Edema Assessment] -Lower Limb Edema Present Yes -Left Calf (cm) 36.1 -Left Ankle (cm) 26 WC - Nurse 2 - General Ulcer CM Notes Start: 02/27/19 09:01 Freq: Status: Active Protocol: Activity Type Activity Date Activity User E-Sign Co-Sign Detail Recorded Client Recorded Date Recorded By Document 02/27/19 09:25 DV [id number] 02/27/19 09:33 DV 02/27/19 09:25 Wound Center Nurse 2 [Procedure/Treatment] #4 LEFT ANKLE -Time 09:26 -Correct Patient Yes -Correct Side, Site, Position Yes -Correct Procedure Yes -Procedure Performed Yes -Type of Procedure Debridement -Clinical Debridement Selective -Post Debridement Size (cm) - Length 11.0 -Post Debridement Size (cm) - Width 8.3 -Post Debridement Size (cm) - Depth 0.3 -Total Square Cm 91.30 -Wound/Ulcer Outcome Not Healed -Ulcer Cleansing Rinsed/ Irrigated with Saline -Foul Odor after Cleansing No -Bioengineered Tissue No -Bleeding Controlled with Pressure -Treatment Response Procedure Tolerated Well [See Physician Procedure note for Specifics] Pain Scale: 0-10 Numeric [Pain] -Is Patient Pain Free? Yes Musculoskeletal: Tenderness - Some areas with manipulation of ulcer site Neurological: Sensory exam intact to light touch and pain Psych/Mental Status: Normal Affect, Appropriate Debridement Note Post-Debridement Measurements/Treatment WC - Nurse 2 - General Ulcer CM Notes Start: 02/27/19 09:01 Freq: Status: Active Protocol: Activity Type Activity Date Activity User E-Sign Co-Sign Detail Recorded Client Recorded Date Recorded By Document 02/27/19 09:25 DV [id number] 02/27/19 09:33 DV 02/27/19 09:25 Wound Center Nurse 2 #4 LEFT ANKLE -Time 09:26 -Correct Patient Yes -Correct Side, Site, Position Yes -Correct Procedure Yes -Procedure Performed Yes -Type of Procedure Debridement -Clinical Debridement Selective -Post Debridement Size (cm) - Length 11.0 -Post Debridement Size (cm) - Width 8.3 -Post Debridement Size (cm) - Depth 0.3 -Total Square Cm 91.30 -Wound/Ulcer Outcome Not Healed -Ulcer Cleansing Rinsed/ Irrigated with Saline -Foul Odor after Cleansing No -Bioengineered Tissue No -Bleeding Controlled with Pressure -Treatment Response Procedure Tolerated Well Pain Scale: 0-10 Numeric Is Patient Pain Free? Yes Wound debrided: Left lower leg Laterality: Left Type of Debridement: Selective debridement Anesthesia Used: 4% Lidocaine Solution Depth: in the subcutaneous layer Percentage of wound debrided: 100 Instrument Used: 7mm curette Tissue Removed: Adherent slough, fibrin, biofilm Severity: Fat Layer Exposed Amount of bleeding with debridement: Mild Bleeding Controlled with: Pressure Patient tolerated procedure well Assessment/Plan Assessment: Peripheral vascular occlusive disease. Nonhealing ulcers resolved. Edema Plan: Patient was carefully examined and evaluated again today. Slight selective debridement was performed as noted in the clinical panel. The base was dressed with hydrofera blue, followed by adaptic, and a dry sterile absorptive dressing. This was followed by Tubigrip for compression. Patient to continue with prednisone. He has had no side effects with these to date. New prescription for antibiotics were dispensed again today and he is to start taking these. New ulcer cultures were taken and sent for aerobic, anaerobic, and MRSA PCR evaluation. We will consult infectious disease to see the patient at his wound center visit next week. Three-view x-rays of the left foot and ankle were also ordered previously and they did not demonstrate any acute osseous abnormalities according to the report. Full report is in patient's chart. MRI was denied. Patient unable to tolerate almost every other dressing that has been tried to this date. Since the ulcer continues to show very slow improvement and the patient has been unable to tolerate many of the different treatment options we have tried, the patient was referred to dermatology for a consult and possible biopsy of ulcer site to gain further information. Biopsy results showed diagnosis as read by the lab: stasis dermatitis with an overlying cutaneous ulceration and reactive epidermal hyperplasia. They noted that the changes seen here are consistent with clinical impression of venous ulcer with reactive epidermal changes. Multiple deeper sections were examined. A PAS stain for fungal elements was negative. The entire path report will be in the patient's chart. He says he is unable to completely stop working, but he does have the option for light duty. We will also refer patient to vascular surgery at this time to see if there is anything they can do to help optimize patient's healing potential. He is to continue with this. I stressed the importance of keeping pressure off of all of the ulcer sites and how this will impact his healing potential. Patient was instructed to be off his feet as much as possible and to keep the lower extremities elevated while not at work. The importance of compression was also discussed with this patient today. LEAS studies were reviewed at a previous patient visit and the results are in the patient's chart. I continue to recommend nutritional supplementation with a high-protein diet at this time in order to help optimize ulcer healing potential. Smoking cessation was stressed again today. All signs and symptoms of local and systemic infection were discussed in great detail with the patient today and he was instructed to go to the emergency room immediately should he notice any of these. All questions were answered to the patient's satisfaction. Patient will follow-up in clinic in 1 week to check on progress, or sooner if needed.
[2019-02-27 17:59] LABS: M R Staph aureus DNA By PCR POSITIVE (Negative); Probe Check PASS; Staph aureus DNA By PCR POSITIVE (Negative)
[2019-03-06 08:54] VITALS: BP 160/91; PULSE 77; RESP 16; TEMP 36.6; BMI 31.4
--- NOTE | 2019-03-06 13:40 | PN.PCM_ITS ---
(1) Ulcer of left lower extremity with fat layer exposed Status: Acute Current Visit: No Code(s): L97.922 - Non-pressure chronic ulcer of unspecified part of left lower leg with fat layer exposed (2) PVD (peripheral vascular disease) Status: Acute Current Visit: No Code(s): I73.9 - Peripheral vascular disease, unspecified (3) Chronic venous insufficiency Status: Acute Current Visit: No Code(s): I87.2 - Venous insufficiency (chronic) (peripheral) (4) Edema, lower extremity Status: Acute Current Visit: No Code(s): R60.0 - Localized edema (5) Pain of left lower extremity Status: Acute Current Visit: No Code(s): M79.605 - Pain in left leg (6) Delayed wound healing Status: Acute Current Visit: No Code(s): T14.8XXD - Other injury of unspecified body region, subsequent encounter Type of Wound Chief Complaint: ulcers to the left lower leg/foot History of Wound: This is a 51-year-old white male presents to wound healing center with a long-standing history of chronic venous insufficiency, chronic venous hypertension, lower extremity edema, lower extremity pain, and 3 ulcer sites to left lower leg/foot. The patient has had multiple ulcerations in the lower extremities bilaterally, related to his chronic venous disease. He also has chronic venous stasis changes. The skin changes include hyperpigmentation. The patient has previously undergone endovenous laser ablation of the left and right great saphenous vein, the small saphenous vein, the left accessory saphenous vein, and an incompetent left calf components engineer vein located 15 cm p roximal to the left medial malleolus. He is currently wearing graduated compression stockings which are documented to be 20-30 mmHg compression, however, he says the ones he has on are about a year old. He has new ones at home that he has not been wearing. 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 Patient says that he noticed a small area start opening on the top of his left foot about 8-10 months ago. He says he tried to doctor this on his own with old wound care supplies. He says this continued to get slightly worse. Then, about 4 months ago, he noticed the area around the medial malleolus starting to break down, and that has slowly been getting worse too. He also has a small anterior lower leg ulcer. Nothing he has done on his own to treat these areas has helped. He decided he should finally come back to the wound healing center to see if he can get the areas to heal again. Progress of Wound: Ulcer slighlty improved in appearance from last week. Patient denies any feelings of nausea, vomiting, fever, chills at this time. - Physical Exam Vital Signs Temp Pulse Resp BP 98 F 77 16 160/91 H 03/06/19 08:54 03/06/19 08:54 03/06/19 08:54 03/06/19 08:54 General: Alert, Oriented x3, Cooperative, No apparent distress Extremities: Capillary Refill Less than 3 Seconds, No Calf Tenderness - Negative Lakisha and Hough signs, Diminished Peripheral Pulses, Edema - Lower extremity edema Skin: Ulcer/ Wound - Ulcer to left medial ankle with fat layer exposed. Ulcer stable in size since last week and slightly improved in appearance. The base is noted to be a mixture of slough, fibrin, granular tissue, biofilm, as well as some surrounding hyperkeratotic tissue. There continues to be no probing to bone, no tracking, no undermining, no surrounding or extending cellulitis, no purulence, no malodor, no increase in warmth to the ulcer site. Moderate to heavy drainage noted. Wound Measurements and Assessment WC - Nurse 1 - General Ulcer Measurement Start: 02/27/19 09:01 Freq: Status: Active Protocol: Activity Type Activity Date Activity User E-Sign Co-Sign Detail Recorded Client Recorded Date Recorded By Document 03/06/19 08:54 NH [id number] 03/06/19 08:59 NH 03/06/19 08:54 Wound Center Nurse 1 [Ulcer Assessment] #4 LEFT ANKLE -Combined with other wound No -Current Size (cm) - Length 11.5 -Current Size (cm) - Width 8.5 -Current Size (cm) - Depth 0.3 -Total Square Cm 97.75 -Photo Taken No -Tunneling No -Undermining/Tunneling No -Circular Undermining No -Exudate Amt Small -Exudate Type Serosanguineous -Wound Margin Thickened -Granulation Amt Medium (34-66%) -Granulation Quality Pale [place] -Necrosis Amt Medium (34-66%) -Necrotic Tissue Type Adherent Slough -Texture (Ara-wound Skin Appearance) Assessed -Moisture (Ara-wound Skin Appearance Assessed ) -Color (Ara-wound Skin Appearance) Assessed -Temperature (Ara-wound Skin No Abnormality Appearance) (Pt Warm) -Tenderness on Palpation (Ara-wound No Skin Appearance) -Ulcer Cleansing Rinsed/ Irrigated with Saline -Foul Odor after Cleansing No -Anesthetic Used 4% Lidocaine Solution [Edema Assessment] -Left Calf (cm) 35 -Left Ankle (cm) 23 WC - Nurse 2 - General Ulcer CM Notes Start: 02/27/19 09:01 Freq: Status: Active Protocol: Activity Type Activity Date Activity User E-Sign Co-Sign Detail Recorded Client Recorded Date Recorded By Document 03/06/19 09:30 AN [id number] 03/06/19 09:38 AN 03/06/19 09:30 Wound Center Nurse 2 [Procedure/Treatment] #4 LEFT ANKLE -Time 09:34 -Correct Patient Yes -Correct Side, Site, Position Yes -Correct Procedure Yes -Procedure Performed Yes -Type of Procedure Debridement -Clinical Debridement Subcutaneous -Post Debridement Size (cm) - Length 11.1 -Post Debridement Size (cm) - Width 8.1 -Post Debridement Size (cm) - Depth 0.3 -Total Square Cm 89.91 -Wound/Ulcer Outcome Not Healed -Ulcer Cleansing Rinsed/ Irrigated with Saline -Foul Odor after Cleansing No -Bioengineered Tissue No -Bleeding Controlled with Pressure -Offloading No -Treatment Response Procedure Tolerated Well [See Physician Procedure note for Specifics] Pain Scale: 0-10 Numeric [Pain] -Is Patient Pain Free? Yes Musculoskeletal: Tenderness - To some areas with manipulation of the ulcer site Neurological: Sensory exam intact to light touch and pain Psych/Mental Status: Normal Affect, Appropriate Debridement Note Post-Debridement Measurements/Treatment WC - Nurse 2 - General Ulcer CM Notes Start: 02/27/19 09:01 Freq: Status: Active Protocol: Activity Type Activity Date Activity User E-Sign Co-Sign Detail Recorded Client Recorded Date Recorded By Document 02/27/19 09:25 DV [id number] 02/27/19 09:33 DV Document 03/06/19 09:30 AN [id number] 03/06/19 09:38 AN 02/27/19 03/06/19 09:25 09:30 Wound Center Nurse 2 #4 LEFT ANKLE -Time 09:26 09:34 -Correct Patient Yes Yes -Correct Side, Site, Position Yes Yes -Correct Procedure Yes Yes -Procedure Performed Yes Yes -Type of Procedure Debridement Debridement -Clinical Debridement Selective Subcutaneous -Post Debridement Size (cm) - Length 11.0 11.1 -Post Debridement Size (cm) - Width 8.3 8.1 -Post Debridement Size (cm) - Depth 0.3 0.3 -Total Square Cm 91.30 89.91 -Wound/Ulcer Outcome Not Healed Not Healed -Ulcer Cleansing Rinsed/ Rinsed/ Irrigated with Irrigated with Saline Saline -Foul Odor after Cleansing No No -Bioengineered Tissue No No -Bleeding Controlled with Pressure Pressure -Offloading No -Treatment Response Procedure Procedure Tolerated Well Tolerated Well Pain Scale: 0-10 Numeric Is Patient Pain Free? Yes Yes Wound debrided: Left lower leg Laterality: Left Type of Debridement: Excisional debridement Anesthesia Used: 4% Lidocaine Solution Depth: in the subcutaneous layer Percentage of wound debrided: 100 Instrument Used: 7mm curette, - - Tissue nipper Tissue Removed: Adherent slough, fibrin, biofilm, hyperkeratotic tissue Severity: Fat Layer Exposed Amount of bleeding with debridement: Mild Bleeding Controlled with: Pressure Patient tolerated procedure well Assessment/Plan Assessment: Peripheral vascular occlusive disease. Nonhealing ulcers resolved. Edema Plan: Patient was carefully examined and evaluated again today. Subcutaneous debridement was performed as noted in the clinical panel. The base was dressed with hydrofera blue, followed by adaptic, and a dry sterile absorptive dressing. This was followed by Tubigrip for compression. Patient to continue with prednisone. Culture results were reviewed. Dr. Farris was consulted and saw the patient today as well. At this time he agrees with choice of augmentin and doxycycline, and relates that he would like to try a 6 week course of these. Three-view x-rays of the left foot and ankle were also ordered previously and they did not demonstrate any acute osseous abnormalities according to the report. Full report is in patient's chart. Due to ulcer site remaining open with no significant improvement, I feel an MRI is warranted at this time even though this was denied previously. We will apply again for MRI and continue to follow for these results. Patient unable to tolerate almost every other dressing that has been tried to this date other than hydrofera blue. Since the ulcer continues to show very slow improvement and the patient has been unable to tolerate many of the different treatment options we have tried, the patient was referred to dermatology for a consult and biopsy of ulcer site to gain further information. Biopsy results showed diagnosis as read by the lab: stasis dermatitis with an overlying cutaneous ulceration and reactive epidermal hyperplasia. They noted that the changes seen here are consistent with clinical impression of venous ulcer with reactive epidermal changes. Multiple deeper sections were examined. A PAS stain for fungal elements was negative. The entire path report will be in the patient's chart. He says he is unable to completely stop working, but he does have the option for light duty. We will also refer patient to vascular surgery at this time to see if there is anything they can do to help optimize patient's healing potential. He is to continue with this. I stressed the importance of keeping pressure off of all of the ulcer sites and how this will impact his healing potential. Patient was instructed to be off his feet as much as possible and to keep the lower extremities elevated while not at work. The importance of compression was also discussed with this patient today. LEAS studies were reviewed at a previous patient visit and the results are in the patient's chart. I continue to recommend nutritional supplementation with a high-protein diet at this time in order to help optimize ulcer healing potential. Smoking cessation was stressed again today. All signs and symptoms of local and systemic infection were discussed in great detail with the patient today and he was instructed to go to the emergency room immediately should he notice any of these. All questions were answered to the patient's satisfaction. Patient will follow-up in clinic in 1 week to check on progress, or sooner if needed.
--- NOTE | 2019-03-06 15:21 | PCM.PN.ID ---
Subjective: Started on doxy/augmentin a week ago with some improvement in drainage from L medial ankle ulcer. No fever, no n/v/d. - Physical Exam General: Alert, Cooperative, No apparent distress Lungs: Clear to auscultation, Normal air movement Cardiovascular: Regular rate, Regular Rhythm Abdomen: Soft, Non Tender, Non-Distended Skin: Ulcer/ Wound - L medial ulcer of ankle Vital Signs Temp Pulse Resp BP 98 F 77 16 160/91 H 03/06/19 08:54 03/06/19 08:54 03/06/19 08:54 03/06/19 08:54 Oxygen Delivery Method Room Air Body Mass Index (BMI) 31.4 Microbiology Past 72 Hours 02/27/19 09:30 Gram Stain - Final Wound Abcess - Leg, Left Wound Culture - Final Meth. resistant Staph. aureus Citrobacter freundii Acinetobacter spp Anaerobic Culture - Final Anaerobic cocci Medical Necessity - Tobacco Use Smoking Status: Heavy Smoker (>10/day) Route of nutrition/ use of supplements: [] Nutritional Intake: [] IV Site: [] [place] Catheter: [] - Assessment/Plan Antibiotics: [] Assessment/Plan: [] Chronic L ankle ulcer with recurrent (+) cxs. Most recently with mrsa, citrobacter, acinetobacter, and anaerobes. Drainage improves with abx. Has been on courses of abx just about every month for at least the past 6-7 months, for 1-2 week courses. Tolerates levaquin with no issue. Given lack of improvement with short courses, recommend 6 weeks of doxy/augmentin, started 02/27/19. Recommend MRI to gauge depth of involvement. Wrote rx for abx. Should get cbc, bmp next week for routine monitoring. Will follow as needed, d/w Dr. Elkins.
[2019-03-20 09:09] VITALS: BP 155/97; PULSE 87; RESP 18; TEMP 36.7; BMI 31.4
--- NOTE | 2019-03-20 12:42 | PCM.WC.PN ---
(1) Ulcer of left lower extremity with fat layer exposed Status: Acute Current Visit: No Code(s): L97.922 - Non-pressure chronic ulcer of unspecified part of left lower leg with fat layer exposed (2) PVD (peripheral vascular disease) Status: Acute Current Visit: No Code(s): I73.9 - Peripheral vascular disease, unspecified (3) Chronic venous insufficiency Status: Acute Current Visit: No Code(s): I87.2 - Venous insufficiency (chronic) (peripheral) (4) Edema, lower extremity Status: Acute Current Visit: No Code(s): R60.0 - Localized edema (5) Pain of left lower extremity Status: Acute Current Visit: No Code(s): M79.605 - Pain in left leg (6) Delayed wound healing Status: Acute Current Visit: No Code(s): T14.8XXD - Other injury of unspecified body region, subsequent encounter Type of Wound Chief Complaint: ulcers to the left lower leg/foot History of Wound: This is a 51-year-old white male presents to wound healing center with a long-standing history of chronic venous insufficiency, chronic venous hypertension, lower extremity edema, lower extremity pain, and 3 ulcer sites to left lower leg/foot. The patient has had multiple ulcerations in the lower extremities bilaterally, related to his chronic venous disease. He also has chronic venous stasis changes. The skin changes include hyperpigmentation. 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 He is currently wearing graduated compression stockings which are documented to be 20-30 mmHg compression, however, he says the ones he has on are about a year old. He has new ones at home that he has not been wearing. 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 Patient says that he noticed a small area start opening on the top of his left foot about 8-10 months ago. He says he tried to doctor this on his own with old wound care supplies. He says this continued to get slightly worse. Then, about 4 months ago, he noticed the area around the medial malleolus starting to break down, and that has slowly been getting worse too. He also has a small anterior lower leg ulcer. Nothing he has done on his own to treat these areas has helped. He decided he should finally come back to the wound healing center to see if he can get the areas to heal again. Progress of Wound: Ulcer larger this week. Patient denies any feelings of nausea, vomiting, fever, chills at this time. - Physical Exam Vital Signs Temp Pulse Resp BP 98.0 F 87 18 155/97 H 03/20/19 09:09 03/20/19 09:09 03/20/19 09:09 03/20/19 09:09 General: Alert, Oriented x3, Cooperative, No apparent distress Extremities: Capillary Refill Less than 3 Seconds, No Calf Tenderness - Negative Lakisha and Hough signs, Diminished Peripheral Pulses, Edema - Slight lower extremity edema Skin: Ulcer/ Wound - Ulcer to left medial ankle with fat layer exposed. Ulcer larger in appearance this week. The base is noted to be a mixture of slough, fibrin, granular tissue, biofilm, as well as some surrounding hyperkeratotic tissue. There continues to be no probing to bone, no tracking, no undermining, no surrounding or extending cellulitis, no purulence, no malodor, no increase in warmth to the ulcer site. Moderate to heavy drainage noted. Wound Measurements and Assessment WC - Nurse 1 - General Ulcer Measurement Start: 02/27/19 09:01 Freq: Status: Active Protocol: Activity Type Activity Date Activity User E-Sign Co-Sign Detail Recorded Client Recorded Date Recorded By Document 03/20/19 09:09 [place] [id number] 03/20/19 09:12 [place] 03/20/19 09:09 Wound Center Nurse 1 [Ulcer Assessment] #4 LEFT ANKLE -Current Size (cm) - Length 12.8 -Current Size (cm) - Width 8.3 -Current Size (cm) - Depth 0.4 -Total Square Cm 106.24 -Exudate Amt Small -Exudate Type Serosanguineous -Wound Margin Fibrotic Scar, Thickened Scar -Granulation Amt Medium (34-66%) -Granulation Quality Pale [place] -Necrosis Amt Medium (34-66%) -Necrotic Tissue Type Adherent Slough -Texture (Ara-wound Skin Appearance) Assessed -Moisture (Ara-wound Skin Appearance Assessed ) -Color (Ara-wound Skin Appearance) Assessed Hemosiderin Staining -Temperature (Ara-wound Skin Cool/Cold Appearance) -Tenderness on Palpation (Ara-wound No Skin Appearance) -Ulcer Cleansing Rinsed/ Irrigated with Saline -Foul Odor after Cleansing No -Anesthetic Used 4% Lidocaine Solution [Edema Assessment] -Left Calf (cm) 34.8 -Left Ankle (cm) 24.1 - Nurse 2 - General Ulcer CM Notes Start: 02/27/19 09:01 Freq: Status: Active Protocol: Activity Type Activity Date Activity User E-Sign Co-Sign Detail Recorded Client Recorded Date Recorded By Document 03/20/19 09:27 AN [id number] 03/20/19 09:33 AN 03/20/19 09:27 Wound Center Nurse 2 [Procedure/Treatment] #4 LEFT ANKLE -Time 09:28 -Correct Patient Yes -Correct Side, Site, Position Yes -Correct Procedure Yes -Procedure Performed Yes -Type of Procedure Debridement -Clinical Debridement Selective -Post Debridement Size (cm) - Length 12.5 -Post Debridement Size (cm) - Width 7.9 -Post Debridement Size (cm) - Depth 0.3 -Total Square Cm 98.75 -Wound/Ulcer Outcome Not Healed -Ulcer Cleansing Rinsed/ Irrigated with Saline -Foul Odor after Cleansing No -Bioengineered Tissue No -Bleeding Controlled with Pressure -Offloading No -Treatment Response Procedure Tolerated Well [See Physician Procedure note for Specifics] Pain Scale: 0-10 Numeric [Pain] -Is Patient Pain Free? Yes Musculoskeletal: Tenderness - With manipulation of some of the areas in the ulcer site Neurological: Sensory exam intact to light touch and pain Psych/Mental Status: Normal Affect, Appropriate Debridement Note Post-Debridement Measurements/Treatment - Nurse 2 - General Ulcer CM Notes Start: 02/27/19 09:01 Freq: Status: Active Protocol: Activity Type Activity Date Activity User E-Sign Co-Sign Detail Recorded Client Recorded Date Recorded By Document 02/27/19 09:25 DV [id number] 02/27/19 09:33 DV Document 03/06/19 09:30 AN [id number] 03/06/19 09:38 AN Document 03/20/19 09:27 AN [id number] 03/20/19 09:33 AN 02/27/19 03/06/1919 09:25 09:30 09:27 Wound Center Nurse 2 #4 LEFT ANKLE -Time 09:26 09:34 09:28 -Correct Patient Yes Yes Yes -Correct Side, Site, Position Yes Yes Yes -Correct Procedure Yes Yes Yes -Procedure Performed Yes Yes Yes -Type of Procedure Debridement Debridement Debridement -Clinical Debridement Selective Subcutaneous Selective -Post Debridement Size (cm) - Length 11.0 11.1 12.5 -Post Debridement Size (cm) - Width 8.3 8.1 7.9 -Post Debridement Size (cm) - Depth 0.3 0.3 0.3 -Total Square Cm 91.30 89.91 98.75 -Wound/Ulcer Outcome Not Healed Not Healed Not Healed -Ulcer Cleansing Rinsed/ Rinsed/ Rinsed/ Irrigated with Irrigated with Irrigated with Saline Saline Saline -Foul Odor after Cleansing No No No -Bioengineered Tissue No No No -Bleeding Controlled with Pressure Pressure Pressure -Offloading No No -Treatment Response Procedure Procedure Procedure Tolerated Well Tolerated Well Tolerated Well Pain Scale: 0-10 Numeric Is Patient Pain Free? Yes Yes Yes Wound debrided: Left lower leg Laterality: Left Type of Debridement: Selective debridement Anesthesia Used: 4% Lidocaine Solution Depth: in the subcutaneous layer Percentage of wound debrided: 100 Instrument Used: 7mm curette, - Tissue Removed: Adherent slough, fibrin, biofilm, hyperkeratotic tissue Severity: Fat Layer Exposed Amount of bleeding with debridement: Mild Bleeding Controlled with: Pressure Patient tolerated procedure well Assessment/Plan Assessment: Peripheral vascular occlusive disease. Nonhealing ulcers resolved. Edema Plan: Patient was carefully examined and evaluated again today. Ulcer site is increased in size this week. Selective debridement was performed as noted in the clinical panel. The base was dressed with hydrofera blue, followed by adaptic, and a dry sterile absorptive dressing. This was followed by Tubigrip for compression. Patient to continue with prednisone. Culture results were reviewed. Dr. Farris has the patient on a 6-week course of Augmentin and doxycycline. Three-view x-rays of the left foot and ankle were also ordered previously and they did not demonstrate any acute osseous abnormalities according to the report. Full report is in patient's chart. Due to ulcer site remaining open with no significant improvement, I feel an MRI is warranted at this time even though this was denied previously. I spoke with patient's insurance and got the MRI approved, however, the patient has not scheduled his appointment yet. It was discussed the importance of getting in his soon as possible to have this study performed. He says he understands this and will call right after his appointment today. Patient unable to tolerate almost every other dressing that has been tried to this date other than hydrofera blue. Since the ulcer continues to show very slow improvement and the patient has been unable to tolerate many of the different treatment options we have tried, the patient was referred to dermatology for a consult and biopsy of ulcer site to gain further information. Biopsy results showed diagnosis as read by the lab: stasis dermatitis with an overlying cutaneous ulceration and reactive epidermal hyperplasia. They noted that the changes seen here are consistent with clinical impression of venous ulcer with reactive epidermal changes. Multiple deeper sections were examined. A PAS stain for fungal elements was negative. The entire path report will be in the patient's chart. He says he is unable to completely stop working, but he does have the option for light duty. We will also refer patient to vascular surgery at this time to see if there is anything they can do to help optimize patient's healing potential. He is to continue with this. I stressed the importance of keeping pressure off of all of the ulcer sites and how this will impact his healing potential. Patient was instructed to be off his feet as much as possible and to keep the lower extremities elevated while not at work. The importance of compression was also discussed with this patient today. LEAS studies were reviewed at a previous patient visit and the results are in the patient's chart. I continue to recommend nutritional supplementation with a high-protein diet at this time in order to help optimize ulcer healing potential. Smoking cessation was stressed again today. All signs and symptoms of local and systemic infection were discussed in great detail with the patient today and he was instructed to go to the emergency room immediately should he notice any of these. All questions were answered to the patient's satisfaction. Patient will follow-up in clinic in 1 week to check on progress, or sooner if needed.
--- NOTE | 2019-03-20 12:49 | PN.PCM_ITS ---
(1) Ulcer of left lower extremity with fat layer exposed Status: Acute Current Visit: No Code(s): L97.922 - Non-pressure chronic ulcer of unspecified part of left lower leg with fat layer exposed (2) PVD (peripheral vascular disease) Status: Acute Current Visit: No Code(s): I73.9 - Peripheral vascular disease, unspecified (3) Chronic venous insufficiency Status: Acute Current Visit: No Code(s): I87.2 - Venous insufficiency (chronic) (peripheral) (4) Edema, lower extremity Status: Acute Current Visit: No Code(s): R60.0 - Localized edema (5) Pain of left lower extremity Status: Acute Current Visit: No Code(s): M79.605 - Pain in left leg (6) Delayed wound healing Status: Acute Current Visit: No Code(s): T14.8XXD - Other injury of unspecified body region, subsequent encounter Type of Wound Chief Complaint: ulcers to the left lower leg/foot History of Wound: This is a 51-year-old white male presents to wound healing center with a long-standing history of chronic venous insufficiency, chronic venous hypertension, lower extremity edema, lower extremity pain, and 3 ulcer sites to left lower leg/foot. The patient has had multiple ulcerations in the lower extremities bilaterally, related to his chronic venous disease. He also has chronic venous stasis changes. The skin changes include hyperpigmentation. The patient has previously undergone endovenous laser ablation of the left and right great saphenous vein, the small saphenous vein, the left accessory saphenous vein, and an incompetent left calf development coach vein located 15 cm p roximal to the left medial malleolus. He is currently wearing graduated compression stockings which are documented to be 20-30 mmHg compression, however, he says the ones he has on are about a year old. He has new ones at home that he has not been wearing. 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 Patient says that he noticed a small area start opening on the top of his left foot about 8-10 months ago. He says he tried to doctor this on his own with old wound care supplies. He says this continued to get slightly worse. Then, about 4 months ago, he noticed the area around the medial malleolus starting to break down, and that has slowly been getting worse too. He also has a small anterior lower leg ulcer. Nothing he has done on his own to treat these areas has helped. He decided he should finally come back to the wound healing center to see if he can get the areas to heal again. Progress of Wound: Ulcer larger this week. Patient denies any feelings of nausea, vomiting, fever, chills at this time. - Physical Exam Vital Signs Temp Pulse Resp BP 98.0 F 87 18 155/97 H 03/20/19 09:09 03/20/19 09:09 03/20/19 09:09 03/20/19 09:09 General: Alert, Oriented x3, Cooperative, No apparent distress Extremities: Capillary Refill Less than 3 Seconds, No Calf Tenderness - Negative Lakisha and Hough signs, Diminished Peripheral Pulses, Edema - Slight lower extremity edema Skin: Ulcer/ Wound - Ulcer to left medial ankle with fat layer exposed. Ulcer larger in appearance this week. The base is noted to be a mixture of slough, fibrin, granular tissue, biofilm, as well as some surrounding hyperkeratotic tissue. There continues to be no probing to bone, no tracking, no undermining, no surrounding or extending cellulitis, no purulence, no malodor, no increase in warmth to the ulcer site. Moderate to heavy drainage noted. Wound Measurements and Assessment WC - Nurse 1 - General Ulcer Measurement Start: 02/27/19 09:01 Freq: Status: Active Protocol: Activity Type Activity Date Activity User E-Sign Co-Sign Detail Recorded Client Recorded Date Recorded By Document 03/20/19 09:09 [place] [id number] 03/20/19 09:12 [place] 03/20/19 09:09 Wound Center Nurse 1 [Ulcer Assessment] #4 LEFT ANKLE -Current Size (cm) - Length 12.8 -Current Size (cm) - Width 8.3 -Current Size (cm) - Depth 0.4 -Total Square Cm 106.24 -Exudate Amt Small -Exudate Type Serosanguineous -Wound Margin Fibrotic Scar, Thickened Scar -Granulation Amt Medium (34-66%) -Granulation Quality Pale [place] -Necrosis Amt Medium (34-66%) -Necrotic Tissue Type Adherent Slough -Texture (Ara-wound Skin Appearance) Assessed -Moisture (Ara-wound Skin Appearance Assessed ) -Color (Ara-wound Skin Appearance) Assessed Hemosiderin Staining -Temperature (Ara-wound Skin Cool/Cold Appearance) -Tenderness on Palpation (Ara-wound No Skin Appearance) -Ulcer Cleansing Rinsed/ Irrigated with Saline -Foul Odor after Cleansing No -Anesthetic Used 4% Lidocaine Solution [Edema Assessment] -Left Calf (cm) 34.8 -Left Ankle (cm) 24.1 - Nurse 2 - General Ulcer CM Notes Start: 02/27/19 09:01 Freq: Status: Active Protocol: Activity Type Activity Date Activity User E-Sign Co-Sign Detail Recorded Client Recorded Date Recorded By Document 03/20/19 09:27 AN [id number] 03/20/19 09:33 AN 03/20/19 09:27 Wound Center Nurse 2 [Procedure/Treatment] #4 LEFT ANKLE -Time 09:28 -Correct Patient Yes -Correct Side, Site, Position Yes -Correct Procedure Yes -Procedure Performed Yes -Type of Procedure Debridement -Clinical Debridement Selective -Post Debridement Size (cm) - Length 12.5 -Post Debridement Size (cm) - Width 7.9 -Post Debridement Size (cm) - Depth 0.3 -Total Square Cm 98.75 -Wound/Ulcer Outcome Not Healed -Ulcer Cleansing Rinsed/ Irrigated with Saline -Foul Odor after Cleansing No -Bioengineered Tissue No -Bleeding Controlled with Pressure -Offloading No -Treatment Response Procedure Tolerated Well [See Physician Procedure note for Specifics] Pain Scale: 0-10 Numeric [Pain] -Is Patient Pain Free? Yes Musculoskeletal: Tenderness - With manipulation of some of the areas in the ulcer site Neurological: Sensory exam intact to light touch and pain Psych/Mental Status: Normal Affect, Appropriate Debridement Note Post-Debridement Measurements/Treatment - Nurse 2 - General Ulcer CM Notes Start: 02/27/19 09:01 Freq: Status: Active Protocol: Activity Type Activity Date Activity User E-Sign Co-Sign Detail Recorded Client Recorded Date Recorded By Document 02/27/19 09:25 DV [id number] 02/27/19 09:33 DV Document 03/06/19 09:30 AN [id number] 03/06/19 09:38 AN Document 03/20/19 09:27 AN [id number] 03/20/19 09:33 AN 05/12/1703/06/19 03/20/19 09:25 09:30 09:27 Wound Center Nurse 2 #4 LEFT ANKLE -Time 09:26 09:34 09:28 -Correct Patient Yes Yes Yes -Correct Side, Site, Position Yes Yes Yes -Correct Procedure Yes Yes Yes -Procedure Performed Yes Yes Yes -Type of Procedure Debridement Debridement Debridement -Clinical Debridement Selective Subcutaneous Selective -Post Debridement Size (cm) - Length 11.0 11.1 12.5 -Post Debridement Size (cm) - Width 8.3 8.1 7.9 -Post Debridement Size (cm) - Depth 0.3 0.3 0.3 -Total Square Cm 91.30 89.91 98.75 -Wound/Ulcer Outcome Not Healed Not Healed Not Healed -Ulcer Cleansing Rinsed/ Rinsed/ Rinsed/ Irrigated with Irrigated with Irrigated with Saline Saline Saline -Foul Odor after Cleansing No No No -Bioengineered Tissue No No No -Bleeding Controlled with Pressure Pressure Pressure -Offloading No No -Treatment Response Procedure Procedure Procedure Tolerated Well Tolerated Well Tolerated Well Pain Scale: 0-10 Numeric Is Patient Pain Free? Yes Yes Yes Wound debrided: Left lower leg Laterality: Left Type of Debridement: Selective debridement Anesthesia Used: 4% Lidocaine Solution Depth: in the subcutaneous layer Percentage of wound debrided: 100 Instrument Used: 7mm curette, - Tissue Removed: Adherent slough, fibrin, biofilm, hyperkeratotic tissue Severity: Fat Layer Exposed Amount of bleeding with debridement: Mild Bleeding Controlled with: Pressure Patient tolerated procedure well Assessment/Plan Assessment: Peripheral vascular occlusive disease. Nonhealing ulcers resolved. Edema Plan: Patient was carefully examined and evaluated again today. Ulcer site is increased in size this week. Selective debridement was performed as noted in the clinical panel. The base was dressed with hydrofera blue, followed by adaptic, and a dry sterile absorptive dressing. This was followed by Tubigrip for compression. Patient to continue with prednisone. Culture results were reviewed. Dr. Farris has the patient on a 6-week course of Augmentin and doxycycline. Three-view x-rays of the left foot and ankle were also ordered previously and they did not demonstrate any acute osseous abnormalities according to the report. Full report is in patient's chart. Due to ulcer site remaining open with no significant improvement, I feel an MRI is warranted at this time even though this was denied previously. I spoke with patient's insurance and got the MRI approved, however, the patient has not scheduled his appointment yet. It was discussed the importance of getting in his soon as possible to have this study performed. He says he understands this and will call right after his appointment today. Patient unable to tolerate almost every other dressing that has been tried to this date other than hydrofera blue. Since the ulcer continues to show very slow improvement and the patient has been unable to tolerate many of the different treatment options we have tried, the patient was referred to dermatology for a consult and biopsy of ulcer site to gain further information. Biopsy results showed diagnosis as read by the lab: stasis dermatitis with an overlying cutaneous ulceration and reactive epidermal hyperplasia. They noted that the changes seen here are consistent with clinical impression of venous ulcer with reactive epidermal changes. Multiple deeper sections were examined. A PAS stain for fungal elements was negative. The entire path report will be in the patient's chart. He says he is unable to co mpletely stop working, but he does have the option for light duty. We will also refer patient to vascular surgery at this time to see if there is anything they can do to help optimize patient's healing potential. He is to continue with this. I stressed the importance of keeping pressure off of all of the ulcer sites and how this will impact his healing potential. Patient was instructed to be off his feet as much as possible and to keep the lower extremities elevated while not at work. The importance of compression was also discussed with this patient today. LEAS studies were reviewed at a previous patient visit and the results are in the patient's chart. I continue to recommend nutritional supplementation with a high-protein diet at this time in order to help optimize ulcer healing potential. Smoking cessation was stressed again today. All signs and symptoms of local and systemic infection were discussed in great detail with the patient today and he was instructed to go to the emergency room immediately should he notice any of these. All questions were answered to the patient's satisfaction. Patient will follow-up in clinic in 1 week to check on progress, or sooner if needed.
[2019-03-27 08:58] VITALS: BP 153/86; PULSE 102; RESP 18; TEMP 36.2; BMI 31.4
--- NOTE | 2019-03-27 09:29 | PN.PCM_ITS ---
(1) Ulcer of left lower extremity with fat layer exposed Status: Acute Current Visit: No Code(s): L97.922 - Non-pressure chronic ulcer of unspecified part of left lower leg with fat layer exposed (2) PVD (peripheral vascular disease) Status: Acute Current Visit: No Code(s): I73.9 - Peripheral vascular disease, unspecified (3) Chronic venous insufficiency Status: Acute Current Visit: No Code(s): I87.2 - Venous insufficiency (chronic) (peripheral) (4) Edema, lower extremity Status: Acute Current Visit: No Code(s): R60.0 - Localized edema (5) Pain of left lower extremity Status: Acute Current Visit: No Code(s): M79.605 - Pain in left leg (6) Delayed wound healing Status: Acute Current Visit: No Code(s): T14.8XXD - Other injury of unspecified body region, subsequent encounter Type of Wound Chief Complaint: ulcers to the left lower leg/foot History of Wound: This is a 51-year-old white male presents to wound healing center with a long-standing history of chronic venous insufficiency, chronic venous hypertension, lower extremity edema, lower extremity pain, and 3 ulcer sites to left lower leg/foot. The patient has had multiple ulcerations in the lower extremities bilaterally, related to his chronic venous disease. He also has chronic venous stasis changes. The skin changes include hyperpigmentation. The patient has previously undergone endovenous laser ablation of the left and right great saphenous vein, the small saphenous vein, the left accessory saphenous vein, and an incompetent left calf intercell connector placer vein located 15 cm p roximal to the left medial malleolus. He is currently wearing graduated compression stockings which are documented to be 20-30 mmHg compression, however, he says the ones he has on are about a year old. He has new ones at home that he has not been wearing. 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 Patient says that he noticed a small area start opening on the top of his left foot about 8-10 months ago. He says he tried to doctor this on his own with old wound care supplies. He says this continued to get slightly worse. Then, about 4 months ago, he noticed the area around the medial malleolus starting to break down, and that has slowly been getting worse too. He also has a small anterior lower leg ulcer. Nothing he has done on his own to treat these areas has helped. He decided he should finally come back to the wound healing center to see if he can get the areas to heal again. Progress of Wound: Ulcer stable this week. Patient denies any feelings of nausea, vomiting, fever, chills at this time. - Physical Exam Vital Signs Temp Pulse Resp BP 97.1 F L 102 H 18 153/86 H 03/27/19 08:58 03/27/19 08:58 03/27/19 08:58 03/27/19 08:58 General: Alert, Oriented x3, Cooperative, No apparent distress Extremities: Capillary Refill Less than 3 Seconds, No Calf Tenderness - Negative Lakisha and Hough signs, Diminished Peripheral Pulses, Edema - Slight lower extremity edema Skin: Ulcer/ Wound - Ulcer to left medial ankle with fat layer exposed. The base is noted to be a mixture of slough, fibrin, granular tissue, biofilm, as well as some surrounding hyperkeratotic tissue. There continues to be no probing to bone, no tracking, no undermining, no surrounding or extending cellulitis, no purulence, no malodor, no increase in warmth to the ulcer site. Moderate to heavy drainage noted. Wound Measurements and Assessment WC - Nurse 1 - General Ulcer Measurement Start: 02/27/19 09:01 Freq: Status: Active Protocol: Activity Type Activity Date Activity User E-Sign Co-Sign Detail Recorded Client Recorded Date Recorded By Document 03/27/19 08:58 DL [id number] 03/27/19 09:05 DL 03/27/19 08:58 Wound Center Nurse 1 [Ulcer Assessment] #4 LEFT ANKLE -Current Size (cm) - Length 13.3 -Current Size (cm) - Width 7.6 -Current Size (cm) - Depth 0.5 -Total Square Cm 101.08 -Photo Taken No -Exudate Amt Medium -Exudate Type Serosanguineous -Wound Margin Distinct, Outline Attached -Granulation Amt Medium (34-66%) -Granulation Quality Red -Necrosis Amt Medium (34-66%) -Necrotic Tissue Type Adherent Slough -Structure Exposed N/A -Texture (Ara-wound Skin Appearance) Localized Edema Scarring -Moisture (Ara-wound Skin Appearance Dry/Scaly ) -Color (Ara-wound Skin Appearance) Hemosiderin Staining -Temperature (Ara-wound Skin No Abnormality Appearance) (Pt Warm) -Tenderness on Palpation (Ara-wound No Skin Appearance) -Ulcer Cleansing Wound Cleanser -Foul Odor after Cleansing No -Anesthetic Used 4% Lidocaine Solution [Edema Assessment] -Left Calf (cm) 32.3 -Left Ankle (cm) 24 - Nurse 2 - General Ulcer CM Notes Start: 02/27/19 09:01 Freq: Status: Active Protocol: Activity Type Activity Date Activity User E-Sign Co-Sign Detail Recorded Client Recorded Date Recorded By Document 03/27/19 09:17 CARLOS [id number] 03/27/19 09:25 CARLOS 03/27/19 09:17 Wound Center Nurse 2 [Procedure/Treatment] #4 LEFT ANKLE -Time 09:17 -Correct Patient Yes -Correct Side, Site, Position Yes -Correct Procedure Yes -Procedure Performed Yes -Type of Procedure Debridement -Clinical Debridement Subcutaneous -Post Debridement Size (cm) - Length 12.5 -Post Debridement Size (cm) - Width 7.9 -Post Debridement Size (cm) - Depth 0.3 -Total Square Cm 98.75 -Wound/Ulcer Outcome Not Healed -Ulcer Cleansing Rinsed/ Irrigated with Saline -Foul Odor after Cleansing No -Bioengineered Tissue No -Bleeding Controlled with Pressure -Offloading No -Treatment Response Procedure Tolerated Well [See Physician Procedure note for Specifics] Pain Scale: 0-10 Numeric [Pain] -Is Patient Pain Free? Yes Musculoskeletal: Tenderness - With manipulation of some areas in the ulcer site Neurological: Sensory exam intact to light touch and pain Psych/Mental Status: Normal Affect, Appropriate Debridement Note Post-Debridement Measurements/Treatment - Nurse 2 - General Ulcer CM Notes Start: 02/27/19 09:01 Freq: Status: Active Protocol: Activity Type Activity Date Activity User E-Sign Co-Sign Detail Recorded Client Recorded Date Recorded By Document 02/27/19 09:25 URI [id number] 02/27/19 09:33 DV Document 03/06/19 09:30 AN [id number] 03/06/19 09:38 AN Document 03/20/19 09:27 AN [id number] 03/20/19 09:33 AN Document 03/27/19 09:17 [id number] 03/27/19 09:25 02/27/19 03/06/19 03/20/19 09:25 09:30 09:27 Wound Center Nurse 2 #4 LEFT ANKLE -Time 09:26 09:34 09:28 -Correct Patient Yes Yes Yes -Correct Side, Site, Position Yes Yes Yes -Correct Procedure Yes Yes Yes -Procedure Performed Yes Yes Yes -Type of Procedure Debridement Debridement Debridement -Clinical Debridement Selective Subcutaneous Selective -Post Debridement Size (cm) - Length 11.0 11.1 12.5 -Post Debridement Size (cm) - Width 8.3 8.1 7.9 -Post Debridement Size (cm) - Depth 0.3 0.3 0.3 -Total Square Cm 91.30 89.91 98.75 -Wound/Ulcer Outcome Not Healed Not Healed Not Healed -Ulcer Cleansing Rinsed/ Rinsed/ Rinsed/ Irrigated with Irrigated with Irrigated with Saline Saline Saline -Foul Odor after Cleansing No No No -Bioengineered Tissue No No No -Bleeding Controlled with Pressure Pressure Pressure -Offloading No No -Treatment Response Procedure Procedure Procedure Tolerated Well Tolerated Well Tolerated Well Pain Scale: 0-10 Numeric Is Patient Pain Free? Yes Yes Yes 03/27/19 09:17 Wound Center Nurse 2 #4 LEFT ANKLE -Time 09:17 -Correct Patient Yes -Correct Side, Site, Position Yes -Correct Procedure Yes -Procedure Performed Yes -Type of Procedure Debridement -Clinical Debridement Subcutaneous -Post Debridement Size (cm) - Length 12.5 -Post Debridement Size (cm) - Width 7.9 -Post Debridement Size (cm) - Depth 0.3 -Total Square Cm 98.75 -Wound/Ulcer Outcome Not Healed -Ulcer Cleansing Rinsed/ Irrigated with Saline -Foul Odor after Cleansing No -Bioengineered Tissue No -Bleeding Controlled with Pressure -Offloading No -Treatment Response Procedure Tolerated Well Pain Scale: 0-10 Numeric Is Patient Pain Free? Yes Wound debrided: Left lower leg Laterality: Left Type of Debridement: Excisional debridement Anesthesia Used: 4% Lidocaine Solution Depth: in the subcutaneous layer Percentage of wound debrided: 100 Instrument Used: 7mm curette Tissue Removed: Adherent slough, fibrin, biofilm, hyperkeratotic tissue Severity: Fat Layer Exposed Amount of bleeding with debridement: Mild Bleeding Controlled with: Pressure Patient tolerated procedure well Assessment/Plan Assessment: Peripheral vascular occlusive disease. Nonhealing ulcers resolved. Edema Plan: Patient was carefully examined and evaluated again today. Ulcer has not improved over the last week. Debridement was performed as noted in the clinical panel. The base was dressed with hydrofera blue, followed by adaptic, and a dry sterile absorptive dressing. This was followed by Tubigrip for compression. Patient to continue with prednisone. Culture results were reviewed. Dr. Farris has the patient on a 6-week course of Augmentin and doxycycline. Three-view x-rays of the left foot and ankle were also ordered previously and they did not demonstrate any acute osseous abnormalities according to the report. Full report is in patient's chart. Due to ulcer site remaining open with no significant improvement, I feel an MRI is warranted at this time even though this was denied previously. I spoke with patient's insurance and got the MRI approved, and this will be performed tomorrow. Patient unable to tolerate almost every other dressing that has been tried to this date other than hydrofera blue. Since the ulcer continues to show very slow improvement and the patient has been unable to tolerate many of the different treatment options we have tried, the patient was referred to dermatology for a consult and biopsy of ulcer site to gain further information. Biopsy results showed diagnosis as read by the lab: stasis dermatitis with an overlying cutaneous ulceration and reactive epidermal hyperplasia. They noted that the changes seen here are consistent with clinical impression of venous ulcer with reactive epidermal changes. Multiple deeper sections were examined. A PAS stain for fungal elements was negative. The entire path report will be in the patient's chart. He says he is unable to completely stop working, but he does have the option for light duty. We will also refer patient to vascular surgery at this time to see if there is anything they can do to help optimize patient's healing potential. He is to continue with this. I stressed the importance of keeping pressure off of all of the ulcer sites and how this will impact his healing potential. Patient was instructed to be off his feet as much as possible and to keep the lower extremities elevated while not at work. The importance of compression was also discussed with this patient today. LEAS studies were reviewed at a previous patient visit and the results are in the patient's chart. I continue to recommend nutritional supplementation with a high-protein diet at this time in order to help optimize ulcer healing potential. Smoking cessation was stressed again today. All signs and symptoms of local and systemic infection were discussed in great detail with the patient today and he was instructed to go to the emergency room immediately should he notice any of these. All questions were answered to the patient's satisfaction. Patient will follow-up in clinic in 1 week to check on progress, or sooner if needed.
--- NOTE | 2019-03-28 11:30 | MRI_ITS ---
HISTORY:LEFT medial ankle wound x 1 year. Pt has area packed and covered. Not diabeyic but does have PVD MRI EXAMINATION OF THE Left ANKLE COMPARISON: none TECHNIQUE: # of images including paperwork:211 FINDINGS: BONES; No fracture, contrusion, bone marrow edema, or bone marrow neoplasm Soft tissues: There is skin thickening at the anteromedial ankle joint covered with a bandage. Probable small defect but poorly visualized At the anterior medial aspect of the ankle with overlying bandage. Deep to the defect there is a large venous varicosity. There is skin thickening in this area. There is also minimal subcutaneous edema seen both laterally and medially at the ankle joint. TIBIOTALAR JOINT: Minimal joint effusion. Osteochondral surfaces of the tibiotalar joint are unremarkable. No loose bodies. SUBTALAR JOINT: There is a minimal subtalar joint effusion. Osteochondral sufaces are intact. No loose bodies. OTHER TARSAL JOINTS: The remainter of the visualized joint of the hindfoot and midfoot show no narrowing or effusion. LIGAMENTS: The anterior tibiofibular ligament is intact. The posterior tlbiofilular ligament is intact The anterior talofibular ligament is intact. The posterior talofibular ligament is intact. The calcaneofibular ligament is intact. The deltoid ligaments are intact. The ligaments of the tarasal sinus are intact. TENDONS: The flexor tendons are unremarkable. The extensor tendons are unremarkable. The peroneal tendons areunremarkable. The retinaculum is unremarkable. The Achilles tendon unrmarkable. PLANTAR APONEUROSIS: The plantar aponeurosis is unremarkable. NEUROVASCULAR STRUCTURES: The posterior tibial neurovascular bundle appears normal, without intinsic or extrinsic masses or foci or signal alteration. IMPRESSION: Evaluation is limited without intervenous contrast Medial and lateral subcutaneous edema. There is a bandage overlying the anterior medial lower leg and ankle with skin thickening and probable defect but poorly visualized on the study. There is also subcutaneous tissue thickening with probable chronic mild edema. There is a large venous varicosity seen within the subcutaneous tissue in this region. No evidence of osteomyelitis is noted. If symptoms persist consider repeating the study with intravenous contrast for further evaluation at 2119 Reported and signed by: Deb Rain DO Electronically Signed: Deb Rain DO at 21:18 EDT Tel , Service support , MRI/Lower Ext Joint Only (Routine)
[2019-04-03 09:04] VITALS: BP 162/91; PULSE 88; RESP 16; TEMP 37.4; BMI 31.4
--- NOTE | 2019-04-03 11:06 | PCM.WC.PN ---
(1) Ulcer of left lower extremity with fat layer exposed Status: Acute Current Visit: No Code(s): L97.922 - Non-pressure chronic ulcer of unspecified part of left lower leg with fat layer exposed (2) PVD (peripheral vascular disease) Status: Acute Current Visit: No Code(s): I73.9 - Peripheral vascular disease, unspecified (3) Chronic venous insufficiency Status: Acute Current Visit: No Code(s): I87.2 - Venous insufficiency (chronic) (peripheral) (4) Edema, lower extremity Status: Acute Current Visit: No Code(s): R60.0 - Localized edema (5) Pain of left lower extremity Status: Acute Current Visit: No Code(s): M79.605 - Pain in left leg (6) Delayed wound healing Status: Acute Current Visit: No Code(s): T14.8XXD - Other injury of unspecified body region, subsequent encounter Type of Wound Chief Complaint: ulcers to the left lower leg/foot History of Wound: This is a 51-year-old white male presents to wound healing center with a long-standing history of chronic venous insufficiency, chronic venous hypertension, lower extremity edema, lower extremity pain, and 3 ulcer sites to left lower leg/foot. The patient has had multiple ulcerations in the lower extremities bilaterally, related to his chronic venous disease. He also has chronic venous stasis changes. The skin changes include hyperpigmentation. The patient has previously undergone endovenous laser ablation of the left and right great saphenous vein, the small saphenous vein, the left accessory saphenous vein, and an incompetent left calf senior receptionist vein located 15 cm proximal to the left medial malleolus. He is currently wearing graduated compression stockings which are documented to be 20-30 mmHg compression, however, he says the ones he has on are about a year old. He has new ones at home that he has not been wearing. 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 Patient says that he noticed a small area start opening on the top of his left foot about 8-10 months ago. He says he tried to doctor this on his own with old wound care supplies. He says this continued to get slightly worse. Then, about 4 months ago, he noticed the area around the medial malleolus starting to break down, and that has slowly been getting worse too. He also has a small anterior lower leg ulcer. Nothing he has done on his own to treat these areas has helped. He decided he should finally come back to the wound healing center to see if he can get the areas to heal again. Progress of Wound: Ulcer slightly larger this week. Patient denies any feelings of nausea, vomiting, fever, chills at this time. - Physical Exam Vital Signs Temp Pulse Resp BP 99.3 F H 88 16 162/91 H 04/03/19 09:04 04/03/19 09:04 04/03/19 09:04 04/03/19 09:04 General: Alert, Oriented x3, Cooperative, No apparent distress Extremities: Capillary Refill Less than 3 Seconds, No Calf Tenderness - Negative Lakisha and Hough signs, Diminished Peripheral Pulses, Edema - Slight lower extremity edema Skin: Ulcer/ Wound - Ulcer to left medial ankle with fat layer exposed. The base is noted to be a mixture of slough, fibrin, granular tissue, biofilm, as well as some surrounding hyperkeratotic tissue. There continues to be no probing to bone, no tracking, no undermining, no surrounding or extending cellulitis, no purulence, no malodor, no increase in warmth to the ulcer site. Moderate to heavy drainage noted. Wound Measurements and Assessment WC - Nurse 1 - General Ulcer Measurement Start: 02/27/19 09:01 Freq: Status: Active Protocol: Activity Type Activity Date Activity User E-Sign Co-Sign Detail Recorded Client Recorded Date Recorded By Document 04/03/19 09:04 [facility] [id number] 04/03/19 09:09 [facility] 04/03/19 09:04 Wound Center Nurse 1 [Ulcer Assessment] #4 LEFT ANKLE -Combined with other wound No -Current Size (cm) - Length 13.9 -Current Size (cm) - Width 9.4 -Current Size (cm) - Depth 0.3 -Total Square Cm 130.66 -Photo Taken No -Tunneling No -Undermining/Tunneling No -Circular Undermining No -Exudate Amt Large -Exudate Type Serosanguineous -Wound Margin Thickened & Rolled Under -Granulation Amt Medium (34-66%) -Granulation Quality Pale [place] -Necrosis Amt Medium (34-66%) -Necrotic Tissue Type Adherent Slough -Texture (Ara-wound Skin Appearance) Assessed -Moisture (Ara-wound Skin Appearance Assessed ) -Color (Ara-wound Skin Appearance) Assessed Hemosiderin Staining -Temperature (Ara-wound Skin No Abnormality Appearance) (Pt Warm) -Tenderness on Palpation (Ara-wound No Skin Appearance) -Ulcer Cleansing Rinsed/ Irrigated with Saline -Foul Odor after Cleansing No -Anesthetic Used 4% Lidocaine Solution [Edema Assessment] -Left Calf (cm) 35.1 -Left Ankle (cm) 24 WC - Nurse 2 - General Ulcer CM Notes Start: 02/27/19 09:01 Freq: Status: Active Protocol: Activity Type Activity Date Activity User E-Sign Co-Sign Detail Recorded Client Recorded Date Recorded By Document 04/03/19 09:14 AN [id number] 04/03/19 09:21 AN 04/03/19 09:14 Wound Center Nurse 2 [Procedure/Treatment] #4 LEFT ANKLE -Time 09:18 -Correct Patient Yes -Correct Side, Site, Position Yes -Correct Procedure Yes -Procedure Performed Yes -Type of Procedure Debridement -Clinical Debridement Subcutaneous -Post Debridement Size (cm) - Length 14 -Post Debridement Size (cm) - Width 8.5 -Post Debridement Size (cm) - Depth 0.3 -Total Square Cm 119.0 -Wound/Ulcer Outcome Not Healed -Ulcer Cleansing Rinsed/ Irrigated with Saline -Foul Odor after Cleansing No -Bioengineered Tissue No -Bleeding Controlled with Pressure -Offloading No -Treatment Response Procedure Tolerated Well [See Physician Procedure note for Specifics] Pain Scale: 0-10 Numeric [Pain] -Is Patient Pain Free? Yes Musculoskeletal: Tenderness - With manipulation of some areas of the ulcer Neurological: Sensory exam intact to light touch and pain Psych/Mental Status: Normal Affect, Appropriate Debridement Note Post-Debridement Measurements/Treatment WC - Nurse 2 - General Ulcer CM Notes Start: 02/27/19 09:01 Freq: Status: Active Protocol: Activity Type Activity Date Activity User E-Sign Co-Sign Detail Recorded Client Recorded Date Recorded By Document 02/27/19 09:25 DV [id number] 02/27/19 09:33 DV Document 03/06/19 09:30 AN [id number] 03/06/19 09:38 AN Document 03/20/19 09:27 AN [id number] 03/20/19 09:33 AN Document 03/27/19 09:17 JF [id number] 03/27/19 09:25 JF Document 04/03/19 09:14 AN [id number] 04/03/19 09:21 AN 02/27/19 03/06/19 03/20/19 09:25 09:30 09:27 Wound Center Nurse 2 #4 LEFT ANKLE -Time 09:26 09:34 09:28 -Correct Patient Yes Yes Yes -Correct Side, Site, Position Yes Yes Yes -Correct Procedure Yes Yes Yes -Procedure Performed Yes Yes Yes -Type of Procedure Debridement Debridement Debridement -Clinical Debridement Selective Subcutaneous Selective -Post Debridement Size (cm) - Length 11.0 11.1 12.5 -Post Debridement Size (cm) - Width 8.3 8.1 7.9 -Post Debridement Size (cm) - Depth 0.3 0.3 0.3 -Total Square Cm 91.30 89.91 98.75 -Wound/Ulcer Outcome Not Healed Not Healed Not Healed -Ulcer Cleansing Rinsed/ Rinsed/ Rinsed/ Irrigated with Irrigated with Irrigated with Saline Saline Saline -Foul Odor after Cleansing No No No -Bioengineered Tissue No No No -Bleeding Controlled with Pressure Pressure Pressure -Offloading No No -Treatment Response Procedure Procedure Procedure Tolerated Well Tolerated Well Tolerated Well Pain Scale: 0-10 Numeric Is Patient Pain Free? Yes Yes Yes 03/27/19 04/03/19 09:17 09:14 Wound Center Nurse 2 #4 LEFT ANKLE -Time 09:17 09:18 -Correct Patient Yes Yes -Correct Side, Site, Position Yes Yes -Correct Procedure Yes Yes -Procedure Performed Yes Yes -Type of Procedure Debridement Debridement -Clinical Debridement Subcutaneous Subcutaneous -Post Debridement Size (cm) - Length 12.5 14 -Post Debridement Size (cm) - Width 7.9 8.5 -Post Debridement Size (cm) - Depth 0.3 0.3 -Total Square Cm 98.75 119.0 -Wound/Ulcer Outcome Not Healed Not Healed -Ulcer Cleansing Rinsed/ Rinsed/ Irrigated with Irrigated with Saline Saline -Foul Odor after Cleansing No No -Bioengineered Tissue No No -Bleeding Controlled with Pressure Pressure -Offloading No No -Treatment Response Procedure Procedure Tolerated Well Tolerated Well Pain Scale: 0-10 Numeric Is Patient Pain Free? Yes Yes No debridement was completed today Assessment/Plan Clinical Impression(s) from Imaging Studies Lower Extremity MRI 03/28/19 11:30 Assessment: Peripheral vascular occlusive disease. Nonhealing ulcers resolved. Edema Plan: Patient was carefully examined and evaluated again today. Ulcer has not improved over the last week. No aggressive debridement performed today. The base was dressed with hydrofera blue, followed by adaptic, and a dry sterile absorptive dressing. This was followed by Tubigrip for compression. Patient to continue with prednisone. Culture results were reviewed. Dr. Farris has the patient on a 6-week course of Augmentin and doxycycline. Three-view x-rays of the left foot and ankle were also ordered previously and they did not demonstrate any acute osseous abnormalities according to the report. Full report is in patient's chart. Patient had MRI taken and impression was read by radiologist is showing no signs of osteomyelitis, however there was a large venous varicosity seen within the subcutaneous tissue in the region of ulcer site. Full detailed report is in the patient's chart. Patient unable to tolerate almost every other dressing that has been tried to this date other than hydrofera blue. Since the ulcer continues to show very slow improvement and the patient has been unable to tolerate many of the different treatment options we have tried, the patient was referred to dermatology for a consult and biopsy of ulcer site to gain further information. Biopsy results showed diagnosis as read by the lab: stasis dermatitis with an overlying cutaneous ulceration and reactive epidermal hyperplasia. They noted that the changes seen here are consistent with clinical impression of venous ulcer with reactive epidermal changes. Multiple deeper sections were examined. A PAS stain for fungal elements was negative. The entire path report will be in the patient's chart. He says he is unable to completely stop working, but he does have the option for light duty. We will also refer patient to vascular surgery at this time to see if there is anything they can do to help optimize patient's healing potential. He is to continue with this. I stressed the importance of keeping pressure off of all of the ulcer sites and how this will impact his healing potential. Patient was instructed to be off his feet as much as possible and to keep the lower extremities elevated while not at work. The importance of compression was also discussed with this patient today. LEAS studies were reviewed at a previous patient visit and the results are in the patient's chart. I continue to recommend nutritional supplementation with a high-protein diet at this time in order to help optimize ulcer healing potential. Smoking cessation was stressed again today. All signs and symptoms of local and systemic infection were discussed in great detail with the patient today and he was instructed to go to the emergency room immediately should he notice any of these. All questions were answered to the patient's satisfaction. Patient will follow-up in clinic in 1 week to check on progress, or sooner if needed.
--- NOTE | 2019-04-03 11:11 | PN.PCM_ITS ---
(1) Ulcer of left lower extremity with fat layer exposed Status: Acute Current Visit: No Code(s): L97.922 - Non-pressure chronic ulcer of unspecified part of left lower leg with fat layer exposed (2) PVD (peripheral vascular disease) Status: Acute Current Visit: No Code(s): I73.9 - Peripheral vascular disease, unspecified (3) Chronic venous insufficiency Status: Acute Current Visit: No Code(s): I87.2 - Venous insufficiency (chronic) (peripheral) (4) Edema, lower extremity Status: Acute Current Visit: No Code(s): R60.0 - Localized edema (5) Pain of left lower extremity Status: Acute Current Visit: No Code(s): M79.605 - Pain in left leg (6) Delayed wound healing Status: Acute Current Visit: No Code(s): T14.8XXD - Other injury of unspecified body region, subsequent encounter Type of Wound Chief Complaint: ulcers to the left lower leg/foot History of Wound: This is a 51-year-old white male presents to wound healing center with a long-standing history of chronic venous insufficiency, chronic venous hypertension, lower extremity edema, lower extremity pain, and 3 ulcer sites to left lower leg/foot. The patient has had multiple ulcerations in the lower extremities bilaterally, related to his chronic venous disease. He also has chronic venous stasis changes. The skin changes include hyperpigmentation. The patient has previously undergone endovenous laser ablation of the left and right great saphenous vein, the small saphenous vein, the left accessory saphenous vein, and an incompetent left calf banquet stewardess vein located 15 cm p roximal to the left medial malleolus. He is currently wearing graduated compression stockings which are documented to be 20-30 mmHg compression, however, he says the ones he has on are about a year old. He has new ones at home that he has not been wearing. 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 Patient says that he noticed a small area start opening on the top of his left foot about 8-10 months ago. He says he tried to doctor this on his own with old wound care supplies. He says this continued to get slightly worse. Then, about 4 months ago, he noticed the area around the medial malleolus starting to break down, and that has slowly been getting worse too. He also has a small anterior lower leg ulcer. Nothing he has done on his own to treat these areas has helped. He decided he should finally come back to the wound healing center to see if he can get the areas to heal again. Progress of Wound: Ulcer slightly larger this week. Patient denies any feelings of nausea, vomiting, fever, chills at this time. - Physical Exam Vital Signs Temp Pulse Resp BP 99.3 F H 88 16 162/91 H 04/03/19 09:04 04/03/19 09:04 04/03/19 09:04 04/03/19 09:04 General: Alert, Oriented x3, Cooperative, No apparent distress Extremities: Capillary Refill Less than 3 Seconds, No Calf Tenderness - Negative Lakisha and Hough signs, Diminished Peripheral Pulses, Edema - Slight lower extremity edema Skin: Ulcer/ Wound - Ulcer to left medial ankle with fat layer exposed. The base is noted to be a mixture of slough, fibrin, granular tissue, biofilm, as well as some surrounding hyperkeratotic tissue. There continues to be no probing to bone, no tracking, no undermining, no surrounding or extending cellulitis, no purulence, no malodor, no increase in warmth to the ulcer site. Moderate to heavy drainage noted. Wound Measurements and Assessment WC - Nurse 1 - General Ulcer Measurement Start: 02/27/19 09:01 Freq: Status: Active Protocol: Activity Type Activity Date Activity User E-Sign Co-Sign Detail Recorded Client Recorded Date Recorded By Document 04/03/19 09:04 [facility] [id number] 04/03/19 09:09 [facility] 04/03/19 09:04 Wound Center Nurse 1 [Ulcer Assessment] #4 LEFT ANKLE -Combined with other wound No -Current Size (cm) - Length 13.9 -Current Size (cm) - Width 9.4 -Current Size (cm) - Depth 0.3 -Total Square Cm 130.66 -Photo Taken No -Tunneling No -Undermining/Tunneling No -Circular Undermining No -Exudate Amt Large -Exudate Type Serosanguineous -Wound Margin Thickened & Rolled Under -Granulation Amt Medium (34-66%) -Granulation Quality Pale [place] -Necrosis Amt Medium (34-66%) -Necrotic Tissue Type Adherent Slough -Texture (Ara-wound Skin Appearance) Assessed -Moisture (Ara-wound Skin Appearance Assessed ) -Color (Ara-wound Skin Appearance) Assessed Hemosiderin Staining -Temperature (Ara-wound Skin No Abnormality Appearance) (Pt Warm) -Tenderness on Palpation (Ara-wound No Skin Appearance) -Ulcer Cleansing Rinsed/ Irrigated with Saline -Foul Odor after Cleansing No -Anesthetic Used 4% Lidocaine Solution [Edema Assessment] -Left Calf (cm) 35.1 -Left Ankle (cm) 24 WC - Nurse 2 - General Ulcer CM Notes Start: 02/27/19 09:01 Freq: Status: Active Protocol: Activity Type Activity Date Activity User E-Sign Co-Sign Detail Recorded Client Recorded Date Recorded By Document 04/03/19 09:14 AN [id number] 04/03/19 09:21 AN 04/03/19 09:14 Wound Center Nurse 2 [Procedure/Treatment] #4 LEFT ANKLE -Time 09:18 -Correct Patient Yes -Correct Side, Site, Position Yes -Correct Procedure Yes -Procedure Performed Yes -Type of Procedure Debridement -Clinical Debridement Subcutaneous -Post Debridement Size (cm) - Length 14 -Post Debridement Size (cm) - Width 8.5 -Post Debridement Size (cm) - Depth 0.3 -Total Square Cm 119.0 -Wound/Ulcer Outcome Not Healed -Ulcer Cleansing Rinsed/ Irrigated with Saline -Foul Odor after Cleansing No -Bioengineered Tissue No -Bleeding Controlled with Pressure -Offloading No -Treatment Response Procedure Tolerated Well [See Physician Procedure note for Specifics] Pain Scale: 0-10 Numeric [Pain] -Is Patient Pain Free? Yes Musculoskeletal: Tenderness - With manipulation of some areas of the ulcer Neurological: Sensory exam intact to light touch and pain Psych/Mental Status: Normal Affect, Appropriate Debridement Note Post-Debridement Measurements/Treatment WC - Nurse 2 - General Ulcer CM Notes Start: 02/27/19 09:01 Freq: Status: Active Protocol: Activity Type Activity Date Activity User E-Sign Co-Sign Detail Recorded Client Recorded Date Recorded By Document 02/27/19 09:25 DV [id number] 02/27/19 09:33 DV Document 03/06/19 09:30 AN [id number] 03/06/19 09:38 AN Document 05/23/19 09:27 AN [id number] 03/20/19 09:33 AN Document 03/27/19 09:17 JF [id number] 03/27/19 09:25 JF Document 04/03/19 09:14 AN [id number] 04/03/19 09:21 AN 02/27/19 03/06/19 03/20/19 09:25 09:30 09:27 Wound Center Nurse 2 #4 LEFT ANKLE -Time 09:26 09:34 09:28 -Correct Patient Yes Yes Yes -Correct Side, Site, Position Yes Yes Yes -Correct Procedure Yes Yes Yes -Procedure Performed Yes Yes Yes -Type of Procedure Debridement Debridement Debridement -Clinical Debridement Selective Subcutaneous Selective -Post Debridement Size (cm) - Length 11.0 11.1 12.5 -Post Debridement Size (cm) - Width 8.3 8.1 7.9 -Post Debridement Size (cm) - Depth 0.3 0.3 0.3 -Total Square Cm 91.30 89.91 98.75 -Wound/Ulcer Outcome Not Healed Not Healed Not Healed -Ulcer Cleansing Rinsed/ Rinsed/ Rinsed/ Irrigated with Irrigated with Irrigated with Saline Saline Saline -Foul Odor after Cleansing No No No -Bioengineered Tissue No No No -Bleeding Controlled with Pressure Pressure Pressure -Offloading No No -Treatment Response Procedure Procedure Procedure Tolerated Well Tolerated Well Tolerated Well Pain Scale: 0-10 Numeric Is Patient Pain Free? Yes Yes Yes 03/27/19 04/03/19 09:17 09:14 Wound Center Nurse 2 #4 LEFT ANKLE -Time 09:17 09:18 -Correct Patient Yes Yes -Correct Side, Site, Position Yes Yes -Correct Procedure Yes Yes -Procedure Performed Yes Yes -Type of Procedure Debridement Debridement -Clinical Debridement Subcutaneous Subcutaneous -Post Debridement Size (cm) - Length 12.5 14 -Post Debridement Size (cm) - Width 7.9 8.5 -Post Debridement Size (cm) - Depth 0.3 0.3 -Total Square Cm 98.75 119.0 -Wound/Ulcer Outcome Not Healed Not Healed -Ulcer Cleansing Rinsed/ Rinsed/ Irrigated with Irrigated with Saline Saline -Foul Odor after Cleansing No No -Bioengineered Tissue No No -Bleeding Controlled with Pressure Pressure -Offloading No No -Treatment Response Procedure Procedure Tolerated Well Tolerated Well Pain Scale: 0-10 Numeric Is Patient Pain Free? Yes Yes No debridement was completed today Assessment/Plan Clinical Impression(s) from Imaging Studies Lower Extremity MRI 03/28/19 11:30 Assessment: Peripheral vascular occlusive disease. Nonhealing ulcers resolved. Edema Plan: Patient was carefully examined and evaluated again today. Ulcer has not improved over the last week. No aggressive debridement performed today. The base was dressed with hydrofera blue, followed by adaptic, and a dry sterile absorptive dressing. This was followed by Tubigrip for compression. Patient to continue with prednisone. Culture results were reviewed. Dr. Farris has the patient on a 6-week course of Augmentin and doxycycline. Three-view x-rays of the left foot and ankle were also ordered previously and they did not demonstrat e any acute osseous abnormalities according to the report. Full report is in patient's chart. Patient had MRI taken and impression was read by radiologist is showing no signs of osteomyelitis, however there was a large venous varicosity seen within the subcutaneous tissue in the region of ulcer site. Full detailed report is in the patient's chart. Patient unable to tolerate almost every other dressing that has been tried to this date other than hydrofera blue. Since the ulcer continues to show very slow improvement and the patient has been unable to tolerate many of the different treatment options we have tried, the patient was referred to dermatology for a consult and biopsy of ulcer site to gain further information. Biopsy results showed diagnosis as read by the lab: stasis dermatitis with an overlying cutaneous ulceration and reactive epidermal hyperplasia. They noted that the changes seen here are consistent with clinical impression of venous ulcer with reactive epidermal mejia ges. Multiple deeper sections were examined. A PAS stain for fungal elements was negative. The entire path report will be in the patient's chart. He says he is unable to completely stop working, but he does have the option for light duty. We will also refer patient to vascular surgery at this time to see if there is anything they can do to help optimize patient's healing potential. He is to continue with this. I stressed the importance of keeping pressure off of all of the ulcer sites and how this will impact his healing potential. Patient was instructed to be off his feet as much as possible and to keep the lower extremities elevated while not at work. The importance of compression was also discussed with this patient today. LEAS studies were reviewed at a previous patient visit and the results are in the patient's chart. I continue to recommend nutritional supplementation with a high-protein diet at this time in order to help optimize ulcer healing potential. Smoking cessation was stressed again today. All signs and symptoms of local and systemic infection were discussed in great detail with the patient today and he was instructed to go to the emergency room immediately should he notice any of these. All questions were answered to the patient's satisfaction. Patient will follow-up in clinic in 1 week to check on progress, or sooner if needed.
[2019-04-10 09:06] VITALS: BP 166/92; PULSE 103; RESP 16; TEMP 37; BMI 31.4
== END 2019-04-10 23:59 ==
LOC: WC 09:00
PROVIDERS: Family Provider Internal Medicine Infectious Disease; PCP Internal Medicine Infectious Disease; Referring Provider Podiatrist; Visit Provider Podiatrist
DX: I73.9 Peripheral vascular disease, unspecified (principal); R60.0 Localized edema; I87.2 Venous insufficiency (chronic) (peripheral); M79.605 Pain in left leg; L97.822 Non-pressure chronic ulcer of other part of left lower leg with fat layer exposed
CPT/HCPCS: 11042; 11045; 73721; 87070; 87075; 87077; 87186; 87205; 87640; 97597; 97598; 99212; 99213; G0463

== ENCOUNTER 2019-04-24 09:00 | Outpatient (RCR) | payer BC, SELFPAY ==
[2019-04-11 00:15] VITALS: BP 166/92; PULSE 103; RESP 16; TEMP 37
[2019-04-17 09:20] VITALS: BP 141/99; PULSE 103; RESP 16; TEMP 37.2; BMI 31.4
--- NOTE | 2019-04-17 10:07 | PN.PCM_ITS ---
(1) Ulcer of left lower extremity with fat layer exposed Status: Acute Current Visit: No Code(s): L97.922 - Non-pressure chronic ulcer of unspecified part of left lower leg with fat layer exposed (2) PVD (peripheral vascular disease) Status: Acute Current Visit: No Code(s): I73.9 - Peripheral vascular disease, unspecified (3) Chronic venous insufficiency Status: Acute Current Visit: No Code(s): I87.2 - Venous insufficiency (chronic) (peripheral) (4) Edema, lower extremity Status: Acute Current Visit: No Code(s): R60.0 - Localized edema (5) Pain of left lower extremity Status: Acute Current Visit: No Code(s): M79.605 - Pain in left leg (6) Delayed wound healing Status: Acute Current Visit: No Code(s): T14.8XXD - Other injury of unspecified body region, subsequent encounter Type of Wound Date of Service: 04/17/19 Chief Complaint: ulcers to the left lower leg/foot History of Wound: This is a 51-year-old white male presents to wound healing center with a long-standing history of chronic venous insufficiency, chronic venous hypertension, lower extremity edema, lower extremity pain, and 3 ulcer sites to left lower leg/foot. The patient has had multiple ulcerations in the lower extremities bilaterally, related to his chronic venous disease. He also has chronic venous stasis changes. The skin changes include hyperpigmentation. The patient has previously undergone endovenous laser ablation of the left and right great saphenous vein, the small saphenous vein, the left accessory saphenous vein, and an incompetent left calf net developer architect vein located 15 cm proximal to the left medial malleolus. He is currently wearing graduated compression stockings which are documented to be 20-30 mmHg compression, liz bond, he says the ones he has on are about a year old. He has new ones at home that he has not been wearing. 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 Patient says that he noticed a small area start opening on the top of his left foot about 8-10 months ago. He says he tried to doctor this on his own with old wound care supplies. He says this continued to get slightly worse. Then, about 4 months ago, he noticed the area around the medial malleolus starting to break down, and that has slowly been getting worse too. He also has a small anterior lower leg ulcer. Nothing he has done on his own to treat these areas has helped. He decided he should finally come back to the wound healing center to see if he can get the areas to heal again. Progress of Wound: Ulcer appears slightly improved this week with less surrounding irritation. Patient denies any feelings of nausea, vomiting, fever, chills at this time. - Physical Exam Vital Signs Temp Pulse Resp BP 98.9 F 103 H 16 141/99 H 04/17/19 09:20 04/17/19 09:20 04/17/19 09:20 04/17/19 09:20 General: Alert, Oriented x3, Cooperative, No apparent distress Extremities: Capillary Refill Less than 3 Seconds, No Calf Tenderness - Negative Lakisha and Hough signs, Diminished Peripheral Pulses, Edema - Mild lower extremity edema Skin: Ulcer/ Wound - Ulcer to left medial ankle with fat layer exposed. The base is noted to be a mixture of slough, fibrin, granular tissue, biofilm, as well as some surrounding hyperkeratotic tissue. There continues to be no probing to bone, no tracking, no undermining, no surrounding or extending cellulitis, no purulence, no malodor, no increase in warmth to the ulcer site. Moderate to heavy drainage noted. Wound Measurements and Assessment WC - Nurse 1 - General Ulcer Measurement Start: 04/17/19 09:20 Freq: Status: Active Protocol: Activity Type Activity Date Activity User E-Sign Co-Sign Detail Recorded Client Recorded Date Recorded By Document 04/17/19 09:20 [facility] [id number] 04/17/19 09:26 [facility] 04/17/19 09:20 Wound Center Nurse 1 [Ulcer Assessment] #4 LEFT ANKLE -Combined with other wound No -Current Size (cm) - Length 14.7 -Current Size (cm) - Width 9.9 -Current Size (cm) - Depth 0.3 -Total Square Cm 145.53 -Photo Taken No -Epithelialization None Present -Tunneling No -Undermining/Tunneling No -Circular Undermining No -Exudate Amt Large -Exudate Type Serosanguineous -Wound Margin Thickened -Granulation Amt Medium (34-66%) -Granulation Quality Red -Slough/Fibrin Yes -Necrosis Amt Medium (34-66%) -Necrotic Tissue Type Adherent Slough -Texture (Ara-wound Skin Appearance) Assessed, Excoriation, Scarring,Rash -Moisture (Ara-wound Skin Appearance Assessed,Dry/ ) Scaly -Color (Ara-wound Skin Appearance) Assessed, Hemosiderin Staining -Temperature (Ara-wound Skin No Abnormality Appearance) (Pt Warm) -Tenderness on Palpation (Ara-wound No Skin Appearance) -Ulcer Cleansing Rinsed/ Irrigated with Saline -Foul Odor after Cleansing No -Anesthetic Used 4% Lidocaine Solution,5% Lidocaine Gel [Edema Assessment] -Lower Limb Edema Present Yes -Left Calf (cm) 34.8 -Left Ankle (cm) 25 WC - Nurse 2 - General Ulcer CM Notes Start: 04/17/19 09:20 Freq: Status: Active Protocol: Activity Type Activity Date Activity User E-Sign Co-Sign Detail Recorded Client Recorded Date Recorded By Document 04/17/19 09:47 AN [id number] 04/17/19 09:51 AN 04/17/19 09:47 Wound Center Nurse 2 [Procedure/Treatment] #4 LEFT ANKLE -Time 09:49 -Correct Patient Yes -Correct Side, Site, Position Yes -Correct Procedure Yes -Procedure Performed No -Post Debridement Size (cm) - Length 15.2 -Post Debridement Size (cm) - Width 12.3 -Post Debridement Size (cm) - Depth 0.3 -Total Square Cm 186.96 -Wound/Ulcer Outcome Not Healed -Ulcer Cleansing Rinsed/ Irrigated with Saline -Foul Odor after Cleansing No -Bioengineered Tissue No -Bleeding Controlled with Pressure -Offloading No -Treatment Response Procedure Tolerated Well [See Physician Procedure note for Specifics] Pain Scale: 0-10 Numeric [Pain] -Is Patient Pain Free? Yes Musculoskeletal: Tenderness - With manipulation of some areas of the patient's ulcer site Neurological: Sensory exam intact to light touch and pain Psych/Mental Status: Normal Affect, Appropriate Debridement Note Post-Debridement Measurements/Treatment WC - Nurse 2 - General Ulcer CM Notes Start: 04/17/19 09:20 Freq: Status: Active Protocol: Activity Type Activity Date Activity User E-Sign Co-Sign Detail Recorded Client Recorded Date Recorded By Document 04/17/19 09:47 AN [id number] 04/17/19 09:51 AN 04/17/19 09:47 Wound Center Nurse 2 #4 LEFT ANKLE -Time 09:49 -Correct Patient Yes -Correct Side, Site, Position Yes -Correct Procedure Yes -Procedure Performed No -Post Debridement Size (cm) - Length 15.2 -Post Debridement Size (cm) - Width 12.3 -Post Debridement Size (cm) - Depth 0.3 -Total Square Cm 186.96 -Wound/Ulcer Outcome Not Healed -Ulcer Cleansing Rinsed/ Irrigated with Saline -Foul Odor after Cleansing No -Bioengineered Tissue No -Bleeding Controlled with Pressure -Offloading No -Treatment Response Procedure Tolerated Well Pain Scale: 0-10 Numeric Is Patient Pain Free? Yes No debridement was completed today Assessment/Plan Assessment: Peripheral vascular occlusive disease. Nonhealing ulcers resolved. Edema Plan: Patient was carefully examined and evaluated again today. Ulcer shows minor improvement in appearance this week. No aggressive debridement performed today. The base was dressed with hydrofera blue, followed by adaptic, and a dry sterile absorptive dressing. This was followed by Tubigrip for compression. Patient has completed his course of antibiotics prescribed by Dr. Farris. Three-view x-rays of the left foot and ankle were also ordered previously and they did not demonstrate any acute osseous abnormalities according to the report. Full report is in patient's chart. Patient had MRI taken and impression was read by radiologist is showing no signs of osteomyelitis, however there was a large venous varicosity seen within the subcutaneous tissue in the region of ulcer site. Full detailed report is in the patient's chart. Patient unable to tolerate almost every other dressing that has been tried to this date other than hydrofera blue. Since the ulcer continues to show very slow improvement and the patient has been unable to tolerate many of the different treatment options we have tried, the patient was referred to dermatology for a consult and biopsy of ulcer site to gain further information. Biopsy results showed diagnosis as read by the lab: stasis dermatitis with an overlying cutaneous ulceration and reactive epidermal hyperplasia. They noted that the changes seen here are consistent with clinical impression of venous ulcer with reactive epidermal changes. Multiple deeper sections were examined. A PAS stain for fungal elements was negative. The entire path report will be in the patient's chart. He says he is unable to completely stop working, but he does have the option for light duty. Patient has an appointment with Dr. Cade on May 14. He is to continue with this. I stressed the importance of keeping pressure off of all of the ulcer sites and how this will impact his healing potential. Patient was instructed to be off his feet as much as possible and to keep the lower extremities elevated while not at work. The importance of compression was also discussed with this patient today. LEAS studies were reviewed at a previous patient visit and the results are in the patient's chart. I continue to recommend nutritional supplementation with a high-protein diet at this time in order to help optimize ulcer healing potential. Smoking cessation was stressed again today. All signs and symptoms of local and systemic infection were discussed in great detail with the patient today and he was instructed to go to the emergency room immediately should he notice any of these. All questions were answered to the patient's satisfaction. Patient will follow-up in clinic in 1 week to check on progress, or sooner if needed.
[2019-04-24 09:04] VITALS: BP 143/93; PULSE 91; RESP 18; TEMP 37.1; BMI 31.4
--- NOTE | 2019-04-24 09:28 | PN.PCM_ITS ---
(1) Ulcer of left lower extremity with fat layer exposed Status: Acute Current Visit: No Code(s): L97.922 - Non-pressure chronic ulcer of unspecified part of left lower leg with fat layer exposed (2) PVD (peripheral vascular disease) Status: Acute Current Visit: No Code(s): I73.9 - Peripheral vascular disease, unspecified (3) Chronic venous insufficiency Status: Acute Current Visit: No Code(s): I87.2 - Venous insufficiency (chronic) (peripheral) (4) Edema, lower extremity Status: Acute Current Visit: No Code(s): R60.0 - Localized edema (5) Pain of left lower extremity Status: Acute Current Visit: No Code(s): M79.605 - Pain in left leg (6) Delayed wound healing Status: Acute Current Visit: No Code(s): T14.8XXD - Other injury of unspecified body region, subsequent encounter Type of Wound Date of Service: 04/24/19 Chief Complaint: ulcers to the left lower leg/foot History of Wound: This is a 51-year-old white male presents to wound healing center with a long-standing history of chronic venous insufficiency, chronic venous hypertension, lower extremity edema, lower extremity pain, and 3 ulcer sites to left lower leg/foot. The patient has had multiple ulcerations in the lower extremities bilaterally, related to his chronic venous disease. He also has chronic venous stasis changes. The skin changes include hyperpigmentation. 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 He is currently wearing graduated compression stockings which are documented to be 20-30 mmHg compression, liz bond, he says the ones he has on are about a year old. He has new ones at home that he has not been wearing. 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 Patient says that he noticed a small area start opening on the top of his left foot about 8-10 months ago. He says he tried to doctor this on his own with old wound care supplies. He says this continued to get slightly worse. Then, about 4 months ago, he noticed the area around the medial malleolus starting to break down, and that has slowly been getting worse too. He also has a small anterior lower leg ulcer. Nothing he has done on his own to treat these areas has helped. He decided he should finally come back to the wound healing center to see if he can get the areas to heal again. Progress of Wound: Ulcer stable. Patient denies any feelings of nausea, vomiting, fever, chills at this time. - Physical Exam Vital Signs Temp Pulse Resp BP 98.7 F 91 18 143/93 H 04/24/19 09:04 04/24/19 09:04 04/24/19 09:04 04/24/19 09:04 General: Alert, Oriented x3, Cooperative, No apparent distress Extremities: Capillary Refill Less than 3 Seconds, No Calf Tenderness - Negative Lakisha and Hough signs, Diminished Peripheral Pulses, Edema - Mild lower extremity edema Skin: Ulcer/ Wound - Ulcer to left medial ankle with fat layer exposed. The base is noted to be a mixture of slough, fibrin, granular tissue, biofilm, as well as some surrounding hyperkeratotic tissue. There continues to be no probing to bone, no tracking, no undermining, no surrounding or extending cellulitis, no purulence, no malodor, no increase in warmth to the ulcer site. Moderate to heavy drainage noted. Wound Measurements and Assessment WC - Nurse 1 - General Ulcer Measurement Start: 04/17/19 09:20 Freq: Status: Active Protocol: Activity Type Activity Date Activity User E-Sign Co-Sign Detail Recorded Client Recorded Date Recorded By Document 04/24/19 09:04 RB [id number] 04/24/19 09:12 RB 04/24/19 09:04 Wound Center Nurse 1 [Ulcer Assessment] #4 LEFT ANKLE -Combined with other wound No -Current Size (cm) - Length 14.7 -Current Size (cm) - Width 11 -Current Size (cm) - Depth 0.3 -Total Square Cm 161.7 -Photo Taken No -Tunneling No -Undermining/Tunneling No -Circular Undermining No -Exudate Amt Small -Exudate Type Serosanguineous -Wound Margin Fibrotic Scar, Thickened Scar -Granulation Amt Large (67-100%) -Granulation Quality [place] -Slough/Fibrin Yes -Necrosis Amt Small (1-33%) -Necrotic Tissue Type Adherent Slough -Structure Exposed N/A -Texture (Ara-wound Skin Appearance) Assessed, Friable -Moisture (Ara-wound Skin Appearance Assessed ) -Color (Ara-wound Skin Appearance) Assessed, Hemosiderin Staining -Temperature (Ara-wound Skin No Abnormality Appearance) (Pt Warm) -Tenderness on Palpation (Ara-wound No Skin Appearance) -Ulcer Cleansing Wound Cleanser -Foul Odor after Cleansing No -Anesthetic Used 4% Lidocaine Solution [Edema Assessment] -Lower Limb Edema Present Yes -Left Calf (cm) 36.8 -Left Ankle (cm) 25 WC - Nurse 2 - General Ulcer CM Notes Start: 04/17/19 09:20 Freq: Status: Active Protocol: Activity Type Activity Date Activity User E-Sign Co-Sign Detail Recorded Client Recorded Date Recorded By Document 04/24/19 09:20 AN [id number] 04/24/19 09:26 AN 04/24/19 09:20 Wound Center Nurse 2 [Procedure/Treatment] #4 LEFT ANKLE -Time 09:21 -Correct Patient Yes -Correct Side, Site, Position Yes -Correct Procedure Yes -Procedure Performed No -Post Debridement Size (cm) - Length 14.7 -Post Debridement Size (cm) - Width 11 -Post Debridement Size (cm) - Depth 0.3 -Total Square Cm 161.7 -Wound/Ulcer Outcome Not Healed -Offloading No -Treatment Response Procedure Tolerated Well [See Physician Procedure note for Specifics] Pain Scale: 0-10 Numeric [Pain] -Is Patient Pain Free? Yes Musculoskeletal: Tenderness - With manipulation and some areas of the ulcer site Neurological: Sensory exam intact to light touch and pain Psych/Mental Status: Normal Affect, Appropriate Debridement Note Post-Debridement Measurements/Treatment WC - Nurse 2 - General Ulcer CM Notes Start: 04/17/19 09:20 Freq: Status: Active Protocol: Activity Type Activity Date Activity User E-Sign Co-Sign Detail Recorded Client Recorded Date Recorded By Document 04/17/19 09:47 AN [id number] 04/17/19 09:51 AN Document 04/24/19 09:20 AN [id number] 04/24/19 09:26 AN 04/17/19 04/24/19 09:47 09:20 Wound Center Nurse 2 #4 LEFT ANKLE -Time 09:49 09:21 -Correct Patient Yes Yes -Correct Side, Site, Position Yes Yes -Correct Procedure Yes Yes -Procedure Performed No No -Post Debridement Size (cm) - Length 15.2 14.7 -Post Debridement Size (cm) - Width 12.3 11 -Post Debridement Size (cm) - Depth 0.3 0.3 -Total Square Cm 186.96 161.7 -Wound/Ulcer Outcome Not Healed Not Healed -Ulcer Cleansing Rinsed/ Irrigated with Saline -Foul Odor after Cleansing No -Bioengineered Tissue No -Bleeding Controlled with Pressure -Offloading No No -Treatment Response Procedure Procedure Tolerated Well Tolerated Well Pain Scale: 0-10 Numeric Is Patient Pain Free? Yes Yes No debridement was completed today Assessment/Plan Assessment: Peripheral vascular occlusive disease. Nonhealing ulcers resolved. Edema Plan: Patient was carefully examined and evaluated again today. Ulcer stable this week. No aggressive debridement performed today. The base was dressed with hydrofera blue, followed by adaptic, and a dry sterile absorptive dressing. This was followed by Tubigrip for compression. Patient has completed his course of antibiotics prescribed by Dr. Farris. Three-view x-rays of the left foot and ankle were also ordered previously and they did not demonstrate any acute osseous abnormalities according to the report. Full report is in patient's chart. Patient had MRI taken and impression was read by radiologist is showing no signs of osteomyelitis, however there was a large venous varicosity seen within the subcutaneous tissue in the region of ulcer site. Full detailed report is in the patient's chart. Patient unable to tolerate almost every other dressing that has been tried to this date other than hydrofera blue. The patient was referred to dermatology for a consult and biopsy of ulcer site to gain further information. Biopsy results showed diagnosis as read by the lab: stasis dermatitis with an overlying cutaneous ulceration and reactive epidermal hyperplasia. They noted that the changes seen here are consistent with clinical impression of venous ulcer with reactive epidermal changes. Multiple deeper sections were examined. A PAS stain for fungal elements was negative. The entire path report will be in the patient's chart. He says he is unable to completely stop working, but he does have the option for light duty. Patient has an appointment with Dr. Cade on May 14. We will call to see if we are able to move this appointment up. I stressed the importance of keeping pressure off of all of the ulcer sites and how this will impact his healing potential. Patient was instructed to be off his feet as much as possible and to keep the lower extremities elevated while not at work. The importance of compression was also discussed with this patient today. LEAS studies were reviewed at a previous patient visit and the results are in the patient's chart. I continue to recommend nutritional supplementation with a high-protein diet at this time in order to help optimize ulcer healing potential. Smoking cessation was stressed again today. All signs and symptoms of local and systemic infection were discussed in great detail with the patient today and he was instructed to go to the emergency room immediately should he notice any of these. All questions were answered to the patient's satisfaction. Patient instructed to follow-up in clinic in 1 week with another provider, however he says he only one to see me and will be scheduled for 2 weeks out. He is to call the wound healing center immediately should he notice any issues over the next week.
== END 2019-04-27 23:59 ==
LOC: WC 09:00
PROVIDERS: Family Provider Internal Medicine Infectious Disease; PCP Internal Medicine Infectious Disease; Referring Provider Podiatrist; Visit Provider Podiatrist
DX: Z09 Encounter for follow-up examination after completed treatment for conditions other than malignant neoplasm (principal); I73.9 Peripheral vascular disease, unspecified; I87.2 Venous insufficiency (chronic) (peripheral)
CPT/HCPCS: 99212; G0463

== ENCOUNTER 2019-05-22 09:00 | Outpatient (RCR) | payer BC, SELFPAY ==
[2019-04-28 01:06] VITALS: BP 143/93; PULSE 91; RESP 18; TEMP 37.1
[2019-05-08 09:05] VITALS: BP 158/89; PULSE 92; RESP 16; TEMP 36.7; BMI 31.4
--- NOTE | 2019-05-08 09:19 | PN.PCM_ITS ---
(1) Ulcer of left lower extremity with fat layer exposed Status: Acute Current Visit: No Code(s): L97.922 - Non-pressure chronic ulcer of unspecified part of left lower leg with fat layer exposed (2) PVD (peripheral vascular disease) Status: Acute Current Visit: No Code(s): I73.9 - Peripheral vascular disease, unspecified (3) Chronic venous insufficiency Status: Acute Current Visit: No Code(s): I87.2 - Venous insufficiency (chronic) (peripheral) (4) Edema, lower extremity Status: Acute Current Visit: No Code(s): R60.0 - Localized edema (5) Pain of left lower extremity Status: Acute Current Visit: No Code(s): M79.605 - Pain in left leg (6) Delayed wound healing Status: Acute Current Visit: No Code(s): T14.8XXD - Other injury of unspecified body region, subsequent encounter (7) Non-compliance with treatment Status: Acute Current Visit: Yes Code(s): Z91.19 - Patient's noncompliance with other medical treatment and regimen Type of Wound Date of Service: 05/08/19 Chief Complaint: ulcers to the left lower leg/foot History of Wound: This is a 51-year-old white male presents to wound healing center with a long-standing history of chronic venous insufficiency, chronic venous hypertension, lower extremity edema, lower extremity pain, and 3 ulcer sites to left lower leg/foot. The patient has had multiple ulcerations in the lower extremities bilaterally, related to his chronic venous disease. He also has chronic venous stasis changes. The skin changes include hyperpigmentation. The patient has previously undergone endovenous laser ablation of the left and right great saphenous vein, the small saphenous vein, the left accessory saphenous vein, and an incompetent left calf lawn care professional vein located 15 cm proximal to the left medial malleolus. He is currently wearing graduated compression stockings which are documented to be 20-30 mmHg compression, however, he says the ones he has on are about a year old. He has new ones at home that he has not been wearing. 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 Patient says that he noticed a small area start opening on the top of his left foot about 8-10 months ago. He says he tried to doctor this on his own with old wound care supplies. He says this continued to get slightly worse. Then, about 4 months ago, he noticed the area around the medial malleolus starting to break down, and that has slowly been getting worse too. He also has a small anterior lower leg ulcer. Nothing he has done on his own to treat these areas has helped. He decided he should finally come back to the wound healing center to see if he can get the areas to heal again. Progress of Wound: Ulcer stable with no improvement since last visit. Patient denies any feelings of nausea, vomiting, fever, chills at this time. - Physical Exam Vital Signs Temp Pulse Resp BP 98.0 F 92 16 158/89 H 05/08/19 09:05 05/08/19 09:05 05/08/19 09:05 05/08/19 09:05 General: Alert, Oriented x3, Cooperative, No apparent distress Extremities: Capillary Refill Less than 3 Seconds, No Calf Tenderness - Negative Lakisha and Hough signs, Diminished Peripheral Pulses, Edema - Mild lower extremity edema Skin: Ulcer/ Wound - Ulcer to left medial ankle with fat layer exposed. The base is noted to be a mixture of slough, fibrin, granular tissue, biofilm, as well as some surrounding hyperkeratotic tissue. There continues to be no probing to bone, no tracking, no undermining, no surrounding or extending cellulitis, no purulence, no malodor, no increase in warmth to the ulcer site. Moderate to heavy drainage noted. Wound Measurements and Assessment WC - Nurse 1 - General Ulcer Measurement Start: 05/08/19 09:05 Freq: Status: Active Protocol: Activity Type Activity Date Activity User E-Sign Co-Sign Detail Recorded Client Recorded Date Recorded By Document 05/08/19 09:05 [id number] 05/08/19 09:08 CARLOS 05/08/19 09:05 Wound Center Nurse 1 [Ulcer Assessment] #4 LEFT ANKLE -Combined with other wound No -Current Size (cm) - Length 16.4 -Current Size (cm) - Width 9.4 -Current Size (cm) - Depth 0.3 -Total Square Cm 154.16 -Photo Taken No -Epithelialization None Present -Tunneling No -Undermining/Tunneling No -Circular Undermining No -Exudate Amt Large -Exudate Type Serosanguineous -Wound Margin Flat & Intact -Granulation Amt Large (67-100%) -Granulation Quality Red -Slough/Fibrin Yes -Necrosis Amt Small (1-33%) -Necrotic Tissue Type Adherent Slough -Structure Exposed N/A -Texture (Ara-wound Skin Appearance) Assessed, Localized Edema -Moisture (Ara-wound Skin Appearance Assessed,Dry/ ) Scaly -Color (Ara-wound Skin Appearance) Assessed, Hemosiderin Staining -Temperature (Ara-wound Skin No Abnormality Appearance) (Pt Warm) -Tenderness on Palpation (Ara-wound No Skin Appearance) -Ulcer Cleansing Wound Cleanser -Foul Odor after Cleansing No -Anesthetic Used 5% Lidocaine Gel [Edema Assessment] -Lower Limb Edema Present Yes -Left Calf (cm) 35.7 -Left Ankle (cm) 24.7 WC - Nurse 2 - General Ulcer CM Notes Start: 05/08/19 09:05 Freq: Status: Active Protocol: Activity Type Activity Date Activity User E-Sign Co-Sign Detail Recorded Client Recorded Date Recorded By Document 05/08/19 09:13 [id number] 05/08/19 09:16 CARLOS 05/08/19 09:13 Wound Center Nurse 2 [Procedure/Treatment] #4 LEFT ANKLE -Time 09:15 -Correct Patient Yes -Correct Side, Site, Position Yes -Correct Procedure Yes -Procedure Performed Yes -Type of Procedure Debridement -Clinical Debridement Selective -Post Debridement Size (cm) - Length 16.4 -Post Debridement Size (cm) - Width 9.4 -Post Debridement Size (cm) - Depth 0.3 -Total Square Cm 154.16 -Wound/Ulcer Outcome Not Healed -Ulcer Cleansing Rinsed/ Irrigated with Saline -Foul Odor after Cleansing No -Bioengineered Tissue No -Bleeding Controlled with Pressure -Offloading No -Treatment Response Procedure Tolerated Well [See Physician Procedure note for Specifics] Pain Scale: 0-10 Numeric [Pain] -Is Patient Pain Free? Yes Musculoskeletal: Tenderness - With manipulation of some areas of ulcer site Neurological: Sensory exam intact to light touch and pain Psych/Mental Status: Normal Affect, Appropriate Debridement Note Post-Debridement Measurements/Treatment WC - Nurse 2 - General Ulcer CM Notes Start: 05/08/19 09:05 Freq: Status: Active Protocol: Activity Type Activity Date Activity User E-Sign Co-Sign Detail Recorded Client Recorded Date Recorded By Document 05/08/19 09:13 CARLOS [id number] 05/08/19 09:16 CARLOS 05/08/19 09:13 Wound Center Nurse 2 #4 LEFT ANKLE -Time 09:15 -Correct Patient Yes -Correct Side, Site, Position Yes -Correct Procedure Yes -Procedure Performed Yes -Type of Procedure Debridement -Clinical Debridement Selective -Post Debridement Size (cm) - Length 16.4 -Post Debridement Size (cm) - Width 9.4 -Post Debridement Size (cm) - Depth 0.3 -Total Square Cm 154.16 -Wound/Ulcer Outcome Not Healed -Ulcer Cleansing Rinsed/ Irrigated with Saline -Foul Odor after Cleansing No -Bioengineered Tissue No -Bleeding Controlled with Pressure -Offloading No -Treatment Response Procedure Tolerated Well Pain Scale: 0-10 Numeric Is Patient Pain Free? Yes Wound debrided: Left lower leg Laterality: Left Type of Debridement: Selective debridement Anesthesia Used: 4% Lidocaine Solution Depth: in the subcutaneous layer Percentage of wound debrided: 100 Instrument Used: 7mm curette Tissue Removed: Slough, fibrin Severity: Fat Layer Exposed Amount of bleeding with debridement: Mild Bleeding Controlled with: Pressure Patient tolerated procedure well Assessment/Plan Active Problems Non-compliance with treatment (Acute) Assessment: Peripheral vascular occlusive disease. Nonhealing ulcers resolved. Edema Plan: Patient was carefully examined and evaluated again today. Ulcer shows no improvement this week. Mild selective debridement performed as noted in the clinical panel. The base was dressed with hydrofera blue, followed by adaptic, and a dry sterile absorptive dressing. This was followed by Tubigrip for compression. Patient has been noncompliant with wearing compression as instructed. Three-view x-rays of the left foot and ankle were also ordered previously and they did not demonstrate any acute osseous abnormalities according to the report. Full report is in patient's chart. Patient had MRI taken and impression was read by radiologist is showing no signs of osteomyelitis, however there was a large venous varicosity seen within the subcutaneous tissue in the region of ulcer site. Full detailed report is in the patient's chart. Patient unable to tolerate almost every other dressing that has been tried to this date other than hydrofera blue. The patient was referred to dermatology for a consult and biopsy of ulcer site to gain further information. Biopsy results showed diagnosis as read by the lab: stasis dermatitis with an overlying cutaneous ulceration and reactive epidermal hyperplasia. They noted that the changes seen here are consistent with clinical impression of venous ulcer with reactive epidermal changes. Multiple deeper sections were examined. A PAS stain for fungal elements was negative. The entire path report will be in the patient's chart. He says he is unable to completely stop working, but he does have the option for light duty. Patient has an appointment with Dr. Cade on May 14 to see if any intervention can be performed to help with patient's ulcer healing. I stressed the importance of keeping pressure completely off of the ulcer and how this will impact his healing potential. Patient was instructed to be off his feet as much as possible and to keep the lower extremities elevated while not at work. The importance of compression was also discussed with this patient today. I continue to recommend nutritional supplementation with a high-protein diet at this time in order to help optimize ulcer healing potential. Smoking cessation was stressed again today. All signs and symptoms of local and systemic infection were discussed in great detail with the patient today and he was instructed to go to the emergency room immediately should he notice any of these. All questio ns were answered to the patient's satisfaction. Patient will follow back up at the wound healing center in 1 week to check on progress, was instructed to follow-up sooner if needed before then.
[2019-05-15 09:06] VITALS: BP 156/80; PULSE 89; RESP 18; TEMP 36.3; BMI 31.4
--- NOTE | 2019-05-15 09:18 | PN.PCM_ITS ---
(1) Ulcer of left lower extremity with fat layer exposed Status: Acute Current Visit: No Code(s): L97.922 - Non-pressure chronic ulcer of unspecified part of left lower leg with fat layer exposed (2) PVD (peripheral vascular disease) Status: Acute Current Visit: No Code(s): I73.9 - Peripheral vascular disease, unspecified (3) Chronic venous insufficiency Status: Acute Current Visit: No Code(s): I87.2 - Venous insufficiency (chronic) (peripheral) (4) Edema, lower extremity Status: Acute Current Visit: No Code(s): R60.0 - Localized edema (5) Pain of left lower extremity Status: Acute Current Visit: No Code(s): M79.605 - Pain in left leg (6) Delayed wound healing Status: Acute Current Visit: No Code(s): T14.8XXD - Other injury of unspecified body region, subsequent encounter (7) Non-compliance with treatment Status: Acute Current Visit: Yes Code(s): Z91.19 - Patient's noncompliance with other medical treatment and regimen Type of Wound Date of Service: 05/15/19 Chief Complaint: ulcers to the left lower leg/foot History of Wound: This is a 51-year-old white male presents to wound healing center with a long-standing history of chronic venous insufficiency, chronic venous hypertension, lower extremity edema, lower extremity pain, and 3 ulcer sites to left lower leg/foot. The patient has had multiple ulcerations in the lower extremities bilaterally, related to his chronic venous disease. He also has chronic venous stasis changes. The skin changes include hyperpigmentation. 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 He is currently wearing graduated compression stockings which are documented to be 20-30 mmHg compression, however, he says the ones he has on are about a year old. He has new ones at home that he has not been wearing. 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 Patient says that he noticed a small area start opening on the top of his left foot about 8-10 months ago. He says he tried to doctor this on his own with old wound care supplies. He says this continued to get slightly worse. Then, about 4 months ago, he noticed the area around the medial malleolus starting to break down, and that has slowly been getting worse too. He also has a small anterior lower leg ulcer. Nothing he has done on his own to treat these areas has helped. He decided he should finally come back to the wound healing center to see if he can get the areas to heal again. Progress of Wound: Ulcer stable this week. He saw Dr. Cade yesterday. Patient denies any feelings of nausea, vomiting, fever, chills at this time. - Physical Exam Vital Signs Temp Pulse Resp BP 97.3 F L 89 18 156/80 H 05/15/19 09:06 05/15/19 09:06 05/15/19 09:06 05/15/19 09:06 General: Alert, Oriented x3, Cooperative, No apparent distress Extremities: Capillary Refill Less than 3 Seconds, No Calf Tenderness - Negative Lakisha and Hough signs, Diminished Peripheral Pulses, Edema - Mild lower extremity edema Skin: Ulcer/ Wound - Ulcer to left medial ankle with fat layer exposed. The base is noted to be a mixture of slough, fibrin, granular tissue, biofilm, as well as some surrounding hyperkeratotic tissue. There continues to be no probing to bone, no tracking, no undermining, no surrounding or extending cellulitis, no purulence, no malodor, no increase in warmth to the ulcer site. Moderate to heavy drainage noted. Wound Measurements and Assessment WC - Nurse 1 - General Ulcer Measurement Start: 05/08/19 09:05 Freq: Status: Active Protocol: Activity Type Activity Date Activity User E-Sign Co-Sign Detail Recorded Client Recorded Date Recorded By Document 05/15/19 09:06 RB [id number] 05/15/19 09:09 RB 05/15/19 09:06 Wound Center Nurse 1 [Ulcer Assessment] #4 LEFT ANKLE -Combined with other wound No -Current Size (cm) - Length 16.5 -Current Size (cm) - Width 11.5 -Current Size (cm) - Depth 0.3 -Total Square Cm 189.75 -Tunneling No -Undermining/Tunneling No -Circular Undermining No -Exudate Amt Large -Exudate Type Serosanguineous -Wound Margin Distinct, Outline Attached -Granulation Amt Large (67-100%) -Granulation Quality [place],Red -Slough/Fibrin Yes -Necrosis Amt Small (1-33%) -Necrotic Tissue Type Adherent Slough -Structure Exposed N/A -Texture (Ara-wound Skin Appearance) Assessed, Friable -Moisture (Ara-wound Skin Appearance Assessed ) -Color (Ara-wound Skin Appearance) Hemosiderin Staining -Temperature (Ara-wound Skin No Abnormality Appearance) (Pt Warm) -Tenderness on Palpation (Ara-wound No Skin Appearance) -Ulcer Cleansing Wound Cleanser -Foul Odor after Cleansing No -Anesthetic Used 4% Lidocaine Solution [Edema Assessment] -Lower Limb Edema Present Yes -Left Calf (cm) 37.4 -Left Ankle (cm) 26.7 WC - Nurse 2 - General Ulcer CM Notes Start: 05/08/19 09:05 Freq: Status: Active Protocol: Activity Type Activity Date Activity User E-Sign Co-Sign Detail Recorded Client Recorded Date Recorded By Document 05/15/19 09:14 AN [id number] 05/15/19 09:17 AN 05/15/19 09:14 Wound Center Nurse 2 [Procedure/Treatment] #4 LEFT ANKLE -Time 09:16 -Correct Patient Yes -Correct Side, Site, Position Yes -Correct Procedure Yes -Procedure Performed Yes -Type of Procedure Debridement -Clinical Debridement Subcutaneous -Post Debridement Size (cm) - Length 16.6 -Post Debridement Size (cm) - Width 11.6 -Post Debridement Size (cm) - Depth 0.3 -Total Square Cm 192.56 -Wound/Ulcer Outcome Not Healed -Ulcer Cleansing Rinsed/ Irrigated with Saline -Foul Odor after Cleansing No -Bioengineered Tissue No -Bleeding Controlled with Pressure -Offloading No -Treatment Response Procedure Tolerated Well [See Physician Procedure note for Specifics] Pain Scale: 0-10 Numeric [Pain] -Is Patient Pain Free? Yes Musculoskeletal: Tenderness - With manipulation of ulcer site Neurological: Sensory exam intact to light touch and pain Psych/Mental Status: Normal Affect, Appropriate Debridement Note Post-Debridement Measurements/Treatment WC - Nurse 2 - General Ulcer CM Notes Start: 05/08/19 09:05 Freq: Status: Active Protocol: Activity Type Activity Date Activity User E-Sign Co-Sign Detail Recorded Client Recorded Date Recorded By Document 05/08/19 09:13 CARLOS [id number] 05/08/19 09:16 Document 05/15/19 09:14 AN [id number] 05/15/19 09:17 AN 05/08/19 05/15/19 09:13 09:14 Wound Center Nurse 2 #4 LEFT ANKLE -Time 09:15 09:16 -Correct Patient Yes Yes -Correct Side, Site, Position Yes Yes -Correct Procedure Yes Yes -Procedure Performed Yes Yes -Type of Procedure Debridement Debridement -Clinical Debridement Selective Subcutaneous -Post Debridement Size (cm) - Length 16.4 16.6 -Post Debridement Size (cm) - Width 9.4 11.6 -Post Debridement Size (cm) - Depth 0.3 0.3 -Total Square Cm 154.16 192.56 -Wound/Ulcer Outcome Not Healed Not Healed -Ulcer Cleansing Rinsed/ Rinsed/ Irrigated with Irrigated with Saline Saline -Foul Odor after Cleansing No No -Bioengineered Tissue No No -Bleeding Controlled with Pressure Pressure -Offloading No No -Treatment Response Procedure Procedure Tolerated Well Tolerated Well Pain Scale: 0-10 Numeric Is Patient Pain Free? Yes Yes No debridement was completed today Assessment/Plan Active Problems Non-compliance with treatment (Acute) Assessment: Peripheral vascular occlusive disease. Nonhealing ulcers resolved. Edema Plan: Patient was carefully examined and evaluated again today. Ulcer remained stable this week. The base was dressed with hydrofera blue, followed by adaptic, and a dry sterile absorptive dressing. This was followed by Tubigrip for compression. Patient has been noncompliant with wearing compression as instructed. Three-view x-rays of the left foot and ankle were also ordered previously and they did not demonstrate any acute osseous abnormalities according to the report. Full report is in patient's chart. Patient had MRI taken and impression was read by radiologist is showing no signs of osteomyelitis, however there was a large venous varicosity seen within the subcutaneous tissue in the region of ulcer site. Full detailed report is in the patient's chart. Patient unable to tolerate almost every other dressing that has been tried to this date other than hydrofera blue. The patient was referred to dermatology for a consult and biopsy of ulcer site to gain further information. Biopsy results showed diagnosis as read by the lab: stasis dermatitis with an overlying cutaneous ulceration and reactive epidermal hyperplasia. They noted that the changes seen here are consistent with clinical impression of venous ulcer with reactive epidermal changes. Multiple deeper sections were examined. A PAS stain for fungal elements was negative. The entire path report will be in the patient's chart. He says he is unable to completely stop working, but he does have the option for light duty. Patient had an appointment with Dr. Cade yesterday. Patient states that Dr. Cade wants to get another test performed but he cannot remember exactly which one. He also prescribed thigh-high compression stockings for this patient. We will try to get a full report from Dr. Cade's office. I stressed the importance of keeping pressure completely off of the ulcer and how this will impact his healing potential. Patient was instructed to be off his feet as much as possible and to keep the lower extremities elevated while not at work. The importance of compression was also discussed with this patient today. I continue to recommend nutritional supplementation with a high-protein diet at this time in order to help optimize ulcer healing potential. Smoking cessation was stress ed again today. All signs and symptoms of local and systemic infection were discussed in great detail with the patient today and he was instructed to go to the emergency room immediately should he notice any of these. All questions were answered to the patient's satisfaction. Patient will follow back up at the wound healing center in 1 week to check on progress, was instructed to follow- up sooner if needed before then.
[2019-05-22 09:03] VITALS: BP 136/68; PULSE 85; RESP 20; TEMP 36.4; BMI 31.4
--- NOTE | 2019-05-22 09:42 | PN.PCM_ITS ---
(1) Ulcer of left lower extremity with fat layer exposed Status: Acute Current Visit: No Code(s): L97.922 - Non-pressure chronic ulcer of unspecified part of left lower leg with fat layer exposed (2) PVD (peripheral vascular disease) Status: Acute Current Visit: No Code(s): I73.9 - Peripheral vascular disease, unspecified (3) Chronic venous insufficiency Status: Acute Current Visit: No Code(s): I87.2 - Venous insufficiency (chronic) (peripheral) (4) Edema, lower extremity Status: Acute Current Visit: No Code(s): R60.0 - Localized edema (5) Pain of left lower extremity Status: Acute Current Visit: No Code(s): M79.605 - Pain in left leg (6) Delayed wound healing Status: Acute Current Visit: No Code(s): T14.8XXD - Other injury of unspecified body region, subsequent encounter (7) Non-compliance with treatment Status: Acute Current Visit: Yes Code(s): Z91.19 - Patient's noncompliance with other medical treatment and regimen Type of Wound Date of Service: 05/22/19 Chief Complaint: ulcers to the left lower leg/foot History of Wound: This is a 51-year-old white male presents to wound healing center with a long-standing history of chronic venous insufficiency, chronic venous hypertension, lower extremity edema, lower extremity pain, and 3 ulcer sites to left lower leg/foot. The patient has had multiple ulcerations in the lower extremities bilaterally, related to his chronic venous disease. He also has chronic venous stasis changes. The skin changes include hyperpigmentation. 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 He is currently wearing graduated compression stockings which are documented to be 20-30 mmHg compression, however, he says the ones he has on are about a year old. He has new ones at home that he has not been wearing. 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 Patient says that he noticed a small area start opening on the top of his left foot about 8-10 months ago. He says he tried to doctor this on his own with old wound care supplies. He says this continued to get slightly worse. Then, about 4 months ago, he noticed the area around the medial malleolus starting to break down, and that has slowly been getting worse too. He also has a small anterior lower leg ulcer. Nothing he has done on his own to treat these areas has helped. He decided he should finally come back to the wound healing center to see if he can get the areas to heal again. Progress of Wound: Ulcer stable. Patient denies any feelings of nausea, vomiting, fever, chills at this time. - Physical Exam Vital Signs Temp Pulse Resp BP 97.5 F L 85 20 H 136/68 H 05/22/19 09:03 05/22/19 09:03 05/22/19 09:03 05/22/19 09:03 General: Alert, Oriented x3, Cooperative, No apparent distress Extremities: Capillary Refill Less than 3 Seconds, No Calf Tenderness - Negative Lakisha and Hough signs, Diminished Peripheral Pulses, Edema - Mild lower extremity edema Skin: Ulcer/ Wound - Ulcer to left medial ankle with fat layer exposed. The base is noted to be a mixture of slough, fibrin, granular tissue, biofilm, as well as some surrounding hyperkeratotic tissue. There continues to be no probing to bone, no tracking, no undermining, no surrounding or extending cellulitis, no purulence, no malodor, no increase in warmth to the ulcer site. Moderate to heavy drainage noted. Wound Measurements and Assessment WC - Nurse 1 - General Ulcer Measurement Start: 05/08/19 09:05 Freq: Status: Active Protocol: Activity Type Activity Date Activity User E-Sign Co-Sign Detail Recorded Client Recorded Date Recorded By Document 05/22/19 09:03 [id number] 05/22/19 09:14 05/22/19 09:03 Wound Center Nurse 1 [Ulcer Assessment] #4 LEFT ANKLE -Combined with other wound No -Current Size (cm) - Length 18.5 -Current Size (cm) - Width 11 -Current Size (cm) - Depth 0.3 -Total Square Cm 203.5 -Photo Taken No -Epithelialization Medium 34-66% -Tunneling No -Undermining/Tunneling No -Circular Undermining No -Change in Wound Grade/Stage No Query Text:If change please identify the Stage/Grade in the comment (ie. S2 G3) -Exudate Amt Medium -Exudate Type Serosanguineous -Wound Margin Distinct, Outline Attached -Granulation Amt Small (1-33%) -Granulation Quality [place],Red -Slough/Fibrin Yes -Necrosis Amt Small (1-33%) -Necrotic Tissue Type Adherent Slough -Structure Exposed None/Limited to Skin Breakdown -Texture (Ara-wound Skin Appearance) No Abnormality, Assessed -Moisture (Ara-wound Skin Appearance No Abnormality, ) Assessed, Weeping -Color (Ara-wound Skin Appearance) Assessed, Erythema -Temperature (Ara-wound Skin No Abnormality Appearance) (Pt Warm) -Tenderness on Palpation (Ara-wound Yes Skin Appearance) -Foul Odor after Cleansing No -Anesthetic Used 4% Lidocaine Solution [Edema Assessment] -Lower Limb Edema Present Yes -Left Calf (cm) 37 -Left Ankle (cm) 25.5 WC - Nurse 2 - General Ulcer CM Notes Start: 05/08/19 09:05 Freq: Status: Active Protocol: Activity Type Activity Date Activity User E-Sign Co-Sign Detail Recorded Client Recorded Date Recorded By Document 05/22/19 09:26 AN [id number] 05/22/19 09:27 AN 05/22/19 09:26 Wound Center Nurse 2 [Procedure/Treatment] #4 LEFT ANKLE -Time 09:26 -Correct Patient Yes -Correct Side, Site, Position Yes -Correct Procedure Yes -Procedure Performed No -Post Debridement Size (cm) - Length 18.5 -Post Debridement Size (cm) - Width 11 -Post Debridement Size (cm) - Depth 0.3 -Total Square Cm 203.5 -Wound/Ulcer Outcome Not Healed -Ulcer Cleansing Rinsed/ Irrigated with Saline -Foul Odor after Cleansing No -Bioengineered Tissue No [See Physician Procedure note for Specifics] Pain Scale: 0-10 Numeric [Pain] -Is Patient Pain Free? Yes Musculoskeletal: Tenderness - Some minor tenderness in certain areas of ulcer site Neurological: Sensory exam intact to light touch and pain Psych/Mental Status: Normal Affect, Appropriate Debridement Note Post-Debridement Measurements/Treatment WC - Nurse 2 - General Ulcer CM Notes Start: 05/08/19 09:05 Freq: Status: Active Protocol: Activity Type Activity Date Activity User E-Sign Co-Sign Detail Recorded Client Recorded Date Recorded By Document 05/08/19 09:13 [id number] 05/08/19 09:16 Document 05/15/19 09:14 AN [id number] 05/15/19 09:17 AN Document 05/22/19 09:26 AN [id number] 05/22/19 09:27 AN 05/08/19 05/15/19 05/22/19 09:13 09:14 09:26 Wound Center Nurse 2 #4 LEFT ANKLE -Time 09:15 09:16 09:26 -Correct Patient Yes Yes Yes -Correct Side, Site, Position Yes Yes Yes -Correct Procedure Yes Yes Yes -Procedure Performed Yes Yes No -Type of Procedure Debridement Debridement -Clinical Debridement Selective Subcutaneous -Post Debridement Size (cm) - Length 16.4 16.6 18.5 -Post Debridement Size (cm) - Width 9.4 11.6 11 -Post Debridement Size (cm) - Depth 0.3 0.3 0.3 -Total Square Cm 154.16 192.56 203.5 -Wound/Ulcer Outcome Not Healed Not Healed Not Healed -Ulcer Cleansing Rinsed/ Rinsed/ Rinsed/ Irrigated with Irrigated with Irrigated with Saline Saline Saline -Foul Odor after Cleansing No No No -Bioengineered Tissue No No No -Bleeding Controlled with Pressure Pressure -Offloading No No -Treatment Response Procedure Procedure Tolerated Well Tolerated Well Pain Scale: 0-10 Numeric Is Patient Pain Free? Yes Yes Yes No debridement was completed today Assessment/Plan Active Problems Non-compliance with treatment (Acute) Assessment: Peripheral vascular occlusive disease. Nonhealing ulcers resolved. Edema Plan: Patient was carefully examined and evaluated again today. Ulcer stable with no decreased size. The base was dressed with hydrofera blue, followed by adaptic, and a dry sterile absorptive dressing. This was followed by Tubigrip for compression. Patient has been noncompliant with wearing compression as instructed. Three-view x-rays of the left foot and ankle were also ordered previously and they did not demonstrate any acute osseous abnormalities according to the report. Full report is in patient's chart. Patient had MRI taken and impression was read by radiologist is showing no signs of osteomyelitis, however there was a large venous varicosity seen within the subcutaneous tissue in the region of ulcer site. Full detailed report is in the patient's chart. Patient unable to tolerate almost every other dressing that has been tried to this date other than hydrofera blue. The patient was referred to dermatology for a consult and biopsy of ulcer site to gain further information. Biopsy results showed diagnosis as read by the lab: stasis dermatitis with an overlying cutaneous ulceration and reactive epidermal hyperplasia. They noted that the changes seen here are consistent with clinical impression of venous ulcer with reactive epidermal changes. Multiple deeper sections were examined. A PAS stain for fungal elements was negative. The entire path report will be in the patient's chart. He says he is unable to completely stop working, but he does have the option for light duty. Patient had an appointment with Dr. Cade last week and has repeat venous duplex ultrasound scheduled for tomorrow. Briefly discussed case with Dr. Cade today. He is to continue with prescribed thigh-high compression stockings by Dr. Cade. I stressed the importance of keeping pressure completely off of the ulcer and how this will impact his healing potential. Patient was instructed to be off his feet as much as possible and to keep the lower extremities elevated while not at work. The importance of compression was also discussed with this patient today. I continue to recommend nutritional supplementation with a high- protein diet at this time in order to help optimize ulcer healing potential. Smoking cessation was stressed again today. All signs and symptoms of local and systemic infection were discussed in great detail with the patient today and he was instructed to go to the emergency room immediately should he notice any of these. All questions were answered to the patient's satisfaction. Patient will follow back up at the wound healing center in 1 week to check on progress, was instructed to follow-up sooner if needed before then.
== END 2019-05-28 23:59 ==
LOC: WC 09:00
PROVIDERS: Family Provider Internal Medicine Infectious Disease; PCP Internal Medicine Infectious Disease; Referring Provider Podiatrist; Visit Provider Podiatrist
DX: I73.9 Peripheral vascular disease, unspecified (principal); L97.822 Non-pressure chronic ulcer of other part of left lower leg with fat layer exposed; I87.2 Venous insufficiency (chronic) (peripheral); Z91.19 Patient's noncompliance with other medical treatment and regimen; R60.0 Localized edema
CPT/HCPCS: 97597; 97598; 99212; G0463

== ENCOUNTER → 2019-05-23 09:52 | Outpatient (CLI) | payer BC, SELFPAY ==
[2019-05-15 09:06] VITALS: BMI 31.4
[2019-05-22 09:03] VITALS: BMI 31.4
--- NOTE | 2019-05-23 09:56 | VDLE_ITS ---
Reason For Study: LLE swelling and BLE pain RIGHT LEFT CFV is compressible, spontaneous, phasic, CFV is compressible, spontaneous, phasic, competent and demonstrates normal competent, and demonstrates normal augmentation. augmentation. FV is compressible, spontaneous, phasic, FV is compressible, spontaneous, phasic, competent and demonstrates normal competent and demonstrates normal augmentation. augmentation. POP V is compressible, spontaneous, phasic, POP V is compressible, spontaneous, phasic, competent and demonstrates normal competent and demonstrates normal augmentation. augmentation. T/P Trunk is compressible. T/P Trunk is compressible. PTV is compressible. PTV is compressible. RT PerV is compressible. LT PerV is compressible. GSV EVLA 2016. GSV, SSV, Pourer Buggy Ladle EVLA 2017 Procedure Exam performed in department. LT varocosities are compressible. The exam was diagnostic. A preliminary report was called and/or faxed to Dr. Cade @ 10:45 am. Interpretation Summary 1. Bilateral no DVT, SVT or deep reflux. 2. Left varicose veins large and patent. 3. Successful previous right gsv and left gsv ssv evlt. Ordering Physician: Jai Cade Referring Physician: NO PCP Performed By: Alma Fisher, MIKE, RVT
== END ==
PROVIDERS: Referring Provider Surgery Vascular Surgery; Visit Provider Surgery Vascular Surgery
DX: M79.89 Other specified soft tissue disorders (principal); M79.609 Pain in unspecified limb; I83.893 Varicose veins of bilateral lower extremities with other complications
CPT/HCPCS: 93970

== ENCOUNTER 2019-06-25 09:15 | Outpatient (RCR) | payer BC, SELFPAY ==
[2019-05-29 01:01] VITALS: BP 136/68; PULSE 85; RESP 20; TEMP 36.4
[2019-06-05 09:09] VITALS: BP 167/92; PULSE 87; RESP 16; TEMP 36.3; BMI 31.4
--- NOTE | 2019-06-05 10:28 | PN.PCM_ITS ---
(1) Ulcer of left lower extremity with fat layer exposed Status: Acute Current Visit: No Code(s): L97.922 - Non-pressure chronic ulcer of unspecified part of left lower leg with fat layer exposed (2) PVD (peripheral vascular disease) Status: Acute Current Visit: No Code(s): I73.9 - Peripheral vascular disease, unspecified (3) Chronic venous insufficiency Status: Acute Current Visit: No Code(s): I87.2 - Venous insufficiency (chronic) (peripheral) (4) Edema, lower extremity Status: Acute Current Visit: No Code(s): R60.0 - Localized edema (5) Pain of left lower extremity Status: Acute Current Visit: No Code(s): M79.605 - Pain in left leg (6) Delayed wound healing Status: Acute Current Visit: No Code(s): T14.8XXD - Other injury of unspecified body region, subsequent encounter (7) Non-compliance with treatment Status: Acute Current Visit: No Code(s): Z91.19 - Patient's noncompliance with other medical treatment and regimen Type of Wound Date of Service: 06/05/19 Chief Complaint: ulcers to the left lower leg/foot History of Wound: This is a 51-year-old white male presents to wound healing center with a long-standing history of chronic venous insufficiency, chronic venous hypertension, lower extremity edema, lower extremity pain, and 3 ulcer sites to left lower leg/foot. The patient has had multiple ulcerations in the lower extremities bilaterally, related to his chronic venous disease. He also has chronic venous stasis changes. The skin changes include hyperpigmentation. 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 He is currently wearing graduated compression stockings which are documented to be 20-30 mmHg compression, however, he says the ones he has on are about a year old. He has new ones at home that he has not been wearing. 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 Patient says that he noticed a small area start opening on the top of his left foot about 8-10 months ago. He says he tried to doctor this on his own with old wound care supplies. He says this continued to get slightly worse. Then, about 4 months ago, he noticed the area around the medial malleolus starting to break down, and that has slowly been getting worse too. He also has a small anterior lower leg ulcer. Nothing he has done on his own to treat these areas has helped. He decided he should finally come back to the wound healing center to see if he can get the areas to heal again. Progress of Wound: Ulcer larger today. Patient denies any feelings of nausea, vomiting, fever, chills at this time. - Physical Exam Vital Signs Temp Pulse Resp BP 97.3 F L 87 16 167/92 H 06/05/19 09:09 06/05/19 09:09 06/05/19 09:09 06/05/19 09:09 General: Alert, Oriented x3, Cooperative, No apparent distress Extremities: Capillary Refill Less than 3 Seconds, No Calf Tenderness - Negative Lakisha and Hough signs, Diminished Peripheral Pulses, Edema - Mild lower extremity edema Skin: Ulcer/ Wound - Ulcer to left medial ankle with fat layer exposed. The base is noted to be a mixture of slough, fibrin, granular tissue, biofilm, as well as some surrounding hyperkeratotic tissue. There continues to be no probing to bone, no tracking, no undermining, no surrounding or extending cellulitis, no purulence, no malodor, no increase in warmth to the ulcer site. Moderate to heavy drainage noted. Wound Measurements and Assessment WC - Nurse 1 - General Ulcer Measurement Start: 06/05/19 09:09 Freq: Status: Active Protocol: Activity Type Activity Date Activity User E-Sign Co-Sign Detail Recorded Client Recorded Date Recorded By Document 06/05/19 09:09 BS [id number] 06/05/19 09:18 BS Document 06/05/19 09:20 AN [id number] 06/05/19 09:33 AN 06/05/19 06/05/19 09:09 09:20 Wound Center Nurse 1 [Ulcer Assessment] #8 left dorsal foot cluster -Combined with other wound No -Current Size (cm) - Length 1.3 -Current Size (cm) - Width 3.7 -Current Size (cm) - Depth 0.1 -Total Square Cm 4.81 -Photo Taken Yes -Epithelialization None Present -Classification - Thickness Full Thickness without Exposed Support Structure -Exudate Amt Medium -Exudate Type Serosanguineous -Wound Margin Distinct, Outline Attached -Granulation Amt Large (67-100%) -Granulation Quality Red -Slough/Fibrin No -Structure Exposed None/Limited to Skin Breakdown -Texture (Ara-wound Skin Appearance) Assessed,Not Assessed -Moisture (Ara-wound Skin Appearance Assessed ) -Color (Ara-wound Skin Appearance) Assessed, Erythema -Temperature (Ara-wound Skin No Abnormality Appearance) (Pt Warm) -Tenderness on Palpation (Ara-wound Yes Skin Appearance) -Ulcer Cleansing Rinsed/ Irrigated with Saline -Foul Odor after Cleansing No -Anesthetic Used 4% Lidocaine Solution #7 left lower leg superior -Current Size (cm) - Length 1.8 -Current Size (cm) - Width 1.7 -Current Size (cm) - Depth 0.2 -Total Square Cm 3.06 -Photo Taken Yes -Classification - Thickness Full Thickness with Exposed Support Structure -Exudate Amt Medium -Exudate Type Serosanguineous -Wound Margin Distinct, Outline Attached -Granulation Amt Medium (34-66%) -Granulation Quality Pale,[place],Red -Slough/Fibrin Yes -Necrosis Amt Medium (34-66%) -Necrotic Tissue Type Eschar -Structure Exposed None/Limited to Skin Breakdown -Texture (Ara-wound Skin Appearance) Assessed, Localized Edema ,Scarring -Moisture (Ara-wound Skin Appearance Assessed ) -Color (Ara-wound Skin Appearance) Assessed -Temperature (Ara-wound Skin No Abnormality Appearance) (Pt Warm) -Tenderness on Palpation (Ara-wound No Skin Appearance) -Ulcer Cleansing Rinsed/ Irrigated with Saline -Foul Odor after Cleansing No -Anesthetic Used 4% Lidocaine Solution #4 LEFT ANKLE -Combined with other wound No No -Current Size (cm) - Length 18.4 -Current Size (cm) - Width 8.4 -Current Size (cm) - Depth 0.3 -Total Square Cm 154.56 -Date of Last Picture (Recall this 06/05/19 field) -Photo Taken Yes -Epithelialization None Present -Tunneling No -Undermining/Tunneling No -Classification - Thickness Full Thickness without Exposed Support Structure -Exudate Amt Large -Exudate Type Serosanguineous -Wound Margin Distinct, Outline Attached -Granulation Amt Medium (34-66%) -Granulation Quality Red -Slough/Fibrin No -Necrosis Amt Medium (34-66%) -Necrotic Tissue Type Adherent Slough -Structure Exposed None/Limited to Skin Breakdown -Texture (Ara-wound Skin Appearance) Assessed, Localized Edema ,Scarring -Moisture (Ara-wound Skin Appearance Assessed ) -Color (Ara-wound Skin Appearance) Assessed, Erythema -Temperature (Ara-wound Skin No Abnormality Appearance) (Pt Warm) -Tenderness on Palpation (Ara-wound No Skin Appearance) -Ulcer Cleansing Rinsed/ Irrigated with Saline -Foul Odor after Cleansing No -Anesthetic Used 4% Lidocaine Solution WC - Nurse 2 - General Ulcer CM Notes Start: 06/05/19 09:09 Freq: Status: Active Protocol: Activity Type Activity Date Activity User E-Sign Co-Sign Detail Recorded Client Recorded Date Recorded By Document 06/05/19 09:42 AN [id number] 06/05/19 09:48 AN 06/05/19 09:42 Wound Center Nurse 2 [Procedure/Treatment] #8 left dorsal foot cluster -Time 09:47 -Correct Patient Yes -Correct Side, Site, Position Yes -Correct Procedure Yes -Procedure Performed Yes -Type of Procedure Debridement -Clinical Debridement Subcutaneous -Post Debridement Size (cm) - Length 1.7 -Post Debridement Size (cm) - Width 3.7 -Post Debridement Size (cm) - Depth 0.1 -Total Square Cm 6.29 -Wound/Ulcer Outcome Not Healed -Ulcer Cleansing Rinsed/ Irrigated with Saline -Foul Odor after Cleansing No -Bioengineered Tissue No -Bleeding Controlled with Pressure -Offloading No -Treatment Response Procedure Tolerated Well #7 left lower leg superior -Time 09:47 -Correct Patient Yes -Correct Side, Site, Position Yes -Correct Procedure Yes -Procedure Performed Yes -Type of Procedure Debridement -Clinical Debridement Subcutaneous -Post Debridement Size (cm) - Length 1.8 -Post Debridement Size (cm) - Width 1.7 -Post Debridement Size (cm) - Depth 0.2 -Total Square Cm 3.06 -Wound/Ulcer Outcome Not Healed -Ulcer Cleansing Rinsed/ Irrigated with Saline -Foul Odor after Cleansing No -Bioengineered Tissue No -Bleeding Controlled with Pressure -Offloading No -Treatment Response Procedure Tolerated Well #4 LEFT ANKLE -Time 09:48 -Correct Patient Yes -Correct Side, Site, Position Yes -Correct Procedure Yes -Procedure Performed Yes -Type of Procedure Debridement -Clinical Debridement Subcutaneous -Post Debridement Size (cm) - Length 18.4 -Post Debridement Size (cm) - Width 8.4 -Post Debridement Size (cm) - Depth 0.3 -Total Square Cm 154.56 -Wound/Ulcer Outcome Not Healed -Ulcer Cleansing Rinsed/ Irrigated with Saline -Foul Odor after Cleansing No -Bioengineered Tissue No -Bleeding Controlled with Pressure -Offloading No -Treatment Response Procedure Tolerated Well [See Physician Procedure note for Specifics] Pain Scale: 0-10 Numeric [Pain] -Is Patient Pain Free? Yes Musculoskeletal: Tenderness - Some minor tenderness in certain areas of the ulcer site Neurological: Sensory exam intact to light touch and pain - With some altered sensation noted to the lower extremity Psych/Mental Status: Normal Affect, Appropriate Debridement Note Post-Debridement Measurements/Treatment WC - Nurse 2 - General Ulcer CM Notes Start: 06/05/19 09:09 Freq: Status: Active Protocol: Activity Type Activity Date Activity User E-Sign Co-Sign Detail Recorded Client Recorded Date Recorded By Document 06/05/19 09:42 AN [id number] 06/05/19 09:48 AN 06/05/19 09:42 Wound Center Nurse 2 #8 left dorsal foot cluster -Time 09:47 -Correct Patient Yes -Correct Side, Site, Position Yes -Correct Procedure Yes -Procedure Performed Yes -Type of Procedure Debridement -Clinical Debridement Subcutaneous -Post Debridement Size (cm) - Length 1.7 -Post Debridement Size (cm) - Width 3.7 -Post Debridement Size (cm) - Depth 0.1 -Total Square Cm 6.29 -Wound/Ulcer Outcome Not Healed -Ulcer Cleansing Rinsed/ Irrigated with Saline -Foul Odor after Cleansing No -Bioengineered Tissue No -Bleeding Controlled with Pressure -Offloading No -Treatment Response Procedure Tolerated Well #7 left lower leg superior -Time 09:47 -Correct Patient Yes -Correct Side, Site, Position Yes -Correct Procedure Yes -Procedure Performed Yes -Type of Procedure Debridement -Clinical Debridement Subcutaneous -Post Debridement Size (cm) - Length 1.8 -Post Debridement Size (cm) - Width 1.7 -Post Debridement Size (cm) - Depth 0.2 -Total Square Cm 3.06 -Wound/Ulcer Outcome Not Healed -Ulcer Cleansing Rinsed/ Irrigated with Saline -Foul Odor after Cleansing No -Bioengineered Tissue No -Bleeding Controlled with Pressure -Offloading No -Treatment Response Procedure Tolerated Well #4 LEFT ANKLE -Time 09:48 -Correct Patient Yes -Correct Side, Site, Position Yes -Correct Procedure Yes -Procedure Performed Yes -Type of Procedure Debridement -Clinical Debridement Subcutaneous -Post Debridement Size (cm) - Length 18.4 -Post Debridement Size (cm) - Width 8.4 -Post Debridement Size (cm) - Depth 0.3 -Total Square Cm 154.56 -Wound/Ulcer Outcome Not Healed -Ulcer Cleansing Rinsed/ Irrigated with Saline -Foul Odor after Cleansing No -Bioengineered Tissue No -Bleeding Controlled with Pressure -Offloading No -Treatment Response Procedure Tolerated Well Pain Scale: 0-10 Numeric Is Patient Pain Free? Yes Wound debrided: Left lower leg Laterality: Left Type of Debridement: Selective debridement Anesthesia Used: 4% Lidocaine Solution Depth: in the subcutaneous layer Percentage of wound debrided: 100 Instrument Used: 7mm curette Tissue Removed: Adherent slough, fibrin, devitalized subcutaneous tissue, biofilm Severity: Fat Layer Exposed Amount of bleeding with debridement: Mild Bleeding Controlled with: Pressure Patient tolerated procedure well Assessment/Plan Assessment: Peripheral vascular occlusive disease. Nonhealing ulcers resolved. Edema Plan: Patient was carefully examined and evaluated again today. Patient missed his visit last week. Ulcer has slightly increased in size since his last visit. Mild selective debridement performed as noted in the clinical panel. The base was dressed with hydrofera blue, followed by adaptic, and a dry sterile absorptive dressing. This was followed by Tubigrip for compression. Patient has been noncompliant with wearing compression as instructed. Three-view x-rays of the left foot and ankle were also ordered previously and they did not demonstrate any acute osseous abnormalities according to the report. Full report is in patient's chart. Patient had MRI taken and impression was read by radiologist is showing no signs of osteomyelitis, however there was a large venous varicosity seen within the subcutaneous tissue in the region of ulcer site. Full detailed report is in the patient's chart. Patient unable to tolerate almost every other dressing that has been tried to this date other than hydrofera blue. The patient was referred to dermatology for a consult and biopsy of ulcer site to gain further information. Biopsy results showed diagnosis as read by the lab: stasis dermatitis with an overlying cutaneous ulceration and reactive epidermal hyperplasia. They noted that the changes seen here are consistent with clinical impression of venous ulcer with reactive epidermal changes. Multiple deeper sections were examined. A PAS stain for fungal elements was negative. The entire path report will be in the patient's chart. He says he is unable to completely stop working, but he does have the option for light duty. Patient had venous duplex performed and followed back up with Dr. Cade recently who says he will be performing a procedure pending approval from insurance. Patient is not aware of exactly the procedure that will be done, but was told he would have it done in [place] office and be able to drive home after. We will see if we can get report from this visit. He is to continue with prescribed thigh-high compression stockings by Dr. Cade. I stressed the importance of keeping pressure completely off of the ulcer and how this will impact his healing potential. Since the ulcer has slighlty worsened since last seen we will prescribe doxycycline and augmentin as well as prednisone for this patient. Patient was instructed to be off his feet as much as possible and to keep the lower extremities elevated while not at work. The importance of compression was also discussed with this patient today. I continue to recommend nutritional supplementation with a high-protein diet at this time in order to help optimize ulcer healing potential. Smoking cessation was stressed again today. All signs and symptoms of local and systemic infection were discussed in great detail with the patient today and he was instructed to go to the emergency room immediately should he notice any of these. All questions were answered to the patient's satisfaction. Patient will follow back up at the wound healing center in 1 week with different provider as I will be out of clinic, but was instructed to follow-up sooner if needed before then.
[2019-06-19 09:17] VITALS: BP 151/88; PULSE 83; RESP 20; TEMP 37; BMI 31.4
--- NOTE | 2019-06-19 09:40 | PN.PCM_ITS ---
(1) Ulcer of left lower extremity with fat layer exposed Status: Acute Current Visit: No Code(s): L97.922 - Non-pressure chronic ulcer of unspecified part of left lower leg with fat layer exposed (2) PVD (peripheral vascular disease) Status: Acute Current Visit: No Code(s): I73.9 - Peripheral vascular disease, unspecified (3) Chronic venous insufficiency Status: Acute Current Visit: No Code(s): I87.2 - Venous insufficiency (chronic) (peripheral) (4) Edema, lower extremity Status: Acute Current Visit: No Code(s): R60.0 - Localized edema (5) Pain of left lower extremity Status: Acute Current Visit: No Code(s): M79.605 - Pain in left leg (6) Delayed wound healing Status: Acute Current Visit: No Code(s): T14.8XXD - Other injury of unspecified body region, subsequent encounter (7) Non-compliance with treatment Status: Acute Current Visit: No Code(s): Z91.19 - Patient's noncompliance with other medical treatment and regimen Type of Wound Date of Service: 06/19/19 Chief Complaint: ulcers to the left lower leg/foot History of Wound: This is a 51-year-old white male presents to wound healing center with a long-standing history of chronic venous insufficiency, chronic venous hypertension, lower extremity edema, lower extremity pain, and 3 ulcer sites to left lower leg/foot. The patient has had multiple ulcerations in the lower extremities bilaterally, related to his chronic venous disease. He also has chronic venous stasis changes. The skin changes include hyperpigmentation. 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 He is currently wearing graduated compression stockings which are documented to be 20-30 mmHg compression, however, he says the ones he has on are about a year old. He has new ones at home that he has not been wearing. 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 Patient says that he noticed a small area start opening on the top of his left foot about 8-10 months ago. He says he tried to doctor this on his own with old wound care supplies. He says this continued to get slightly worse. Then, about 4 months ago, he noticed the area around the medial malleolus starting to break down, and that has slowly been getting worse too. He also has a small anterior lower leg ulcer. Nothing he has done on his own to treat these areas has helped. He decided he should finally come back to the wound healing center to see if he can get the areas to heal again. Progress of Wound: Ulcer better in appearance today. Patient denies any feelings of nausea, vomiting, fever, chills at this time. - Physical Exam Vital Signs Temp Pulse Resp BP 98.6 F 83 20 H 151/88 H 06/19/19 09:17 06/19/19 09:17 06/19/19 09:17 06/19/19 09:17 General: Alert, Oriented x3, Cooperative, No apparent distress Extremities: Capillary Refill Less than 3 Seconds, No Calf Tenderness - Negative [place] and [place] signs, Diminished Peripheral Pulses, Edema - Mild lower extremity edema Skin: Ulcer/ Wound - Ulcer to left medial ankle with fat layer exposed. Site appears less irritated this week. The base continues to be a mixture of devitalized subcutaneous tissue, slough, fibrin, granular tissue, biofilm, as well as some surrounding hyperkeratotic tissue. There continues to be no probing to bone, no tracking, no undermining, no surrounding or extending cellulitis, no purulence, no malodor, no increase in warmth to the ulcer site. Moderate to heavy drainage noted. Wound Measurements and Assessment WC - Nurse 1 - General Ulcer Measurement Start: 06/05/19 09:09 Freq: Status: Active Protocol: Activity Type Activity Date Activity User E-Sign Co-Sign Detail Recorded Client Recorded Date Recorded By Document 06/19/19 09:17 DL [id number] 06/19/19 09:25 DL 06/19/19 09:17 Wound Center Nurse 1 [Ulcer Assessment] #8 left dorsal foot cluster -Current Size (cm) - Length 0 -Current Size (cm) - Width 0 -Current Size (cm) - Depth 0 -Total Square Cm 0 -Photo Taken Yes -Exudate Amt None Present -Wound Margin Flat & Intact -Granulation Amt Large (67-100%) -Granulation Quality [place] -Necrosis Amt None Present (0 %) -Texture (Ara-wound Skin Appearance) Scarring -Moisture (Ara-wound Skin Appearance Dry/Scaly ) -Color (Ara-wound Skin Appearance) Hemosiderin Staining -Temperature (Ara-wound Skin No Abnormality Appearance) (Pt Warm) -Tenderness on Palpation (Ara-wound No Skin Appearance) -Ulcer Cleansing Wound Cleanser -Foul Odor after Cleansing No #7 left lower leg superior -Current Size (cm) - Length 4 -Current Size (cm) - Width 3 -Current Size (cm) - Depth 0.3 -Total Square Cm 12 -Photo Taken No -Exudate Amt Medium -Exudate Type Serosanguineous -Wound Margin Distinct, Outline Attached -Granulation Amt Small (1-33%) -Granulation Quality Red -Necrosis Amt Large (67-100%) -Necrotic Tissue Type Adherent Slough -Structure Exposed N/A -Texture (Ara-wound Skin Appearance) Localized Edema ,Scarring -Moisture (Ara-wound Skin Appearance Dry/Scaly ) -Color (Ara-wound Skin Appearance) Mottled -Temperature (Ara-wound Skin No Abnormality Appearance) (Pt Warm) -Tenderness on Palpation (Ara-wound No Skin Appearance) -Ulcer Cleansing Wound Cleanser -Foul Odor after Cleansing No -Anesthetic Used 5% Lidocaine Gel #4 LEFT ANKLE -Current Size (cm) - Length 18.5 -Current Size (cm) - Width 9.5 -Current Size (cm) - Depth 0.4 -Total Square Cm 175.75 -Photo Taken No -Exudate Amt Large -Exudate Type Serosanguineous -Wound Margin Thickened -Granulation Amt Medium (34-66%) -Granulation Quality Red -Necrosis Amt Medium (34-66%) -Necrotic Tissue Type Adherent Slough -Structure Exposed N/A -Texture (Ara-wound Skin Appearance) Localized Edema ,Scarring -Moisture (Ara-wound Skin Appearance Dry/Scaly ) -Color (Ara-wound Skin Appearance) Hemosiderin Staining -Temperature (Ara-wound Skin No Abnormality Appearance) (Pt Warm) -Tenderness on Palpation (Ara-wound No Skin Appearance) -Ulcer Cleansing Wound Cleanser -Foul Odor after Cleansing No WC - Nurse 2 - General Ulcer CM Notes Start: 06/05/19 09:09 Freq: Status: Active Protocol: Activity Type Activity Date Activity User E-Sign Co-Sign Detail Recorded Client Recorded Date Recorded By Document 06/19/19 09:35 [id number] 06/19/19 09:37 06/19/19 09:35 Wound Center Nurse 2 [Procedure/Treatment] #8 left dorsal foot cluster -Time 09:35 -Treatment Response Procedure Tolerated Well [See Physician Procedure note for Specifics] Musculoskeletal: Tenderness - Some minor tenderness with manipulation of certain areas of his ulcer site Neurological: Sensory exam intact to light touch and pain - With some altered sensation noted to the lower extremity Psych/Mental Status: Normal Affect, Appropriate Debridement Note Post-Debridement Measurements/Treatment WC - Nurse 2 - General Ulcer CM Notes Start: 06/05/19 09:09 Freq: Status: Active Protocol: Activity Type Activity Date Activity User E-Sign Co-Sign Detail Recorded Client Recorded Date Recorded By Document 06/05/19 09:42 AN [id number] 06/05/19 09:48 AN Document 06/19/19 09:35 [id number] 06/19/19 09:37 06/05/19 06/19/19 09:42 09:35 Wound Center Nurse 2 #8 left dorsal foot cluster -Time 09:47 09:35 -Correct Patient Yes -Correct Side, Site, Position Yes -Correct Procedure Yes -Procedure Performed Yes -Type of Procedure Debridement -Clinical Debridement Subcutaneous -Post Debridement Size (cm) - Length 1.7 -Post Debridement Size (cm) - Width 3.7 -Post Debridement Size (cm) - Depth 0.1 -Total Square Cm 6.29 -Wound/Ulcer Outcome Not Healed -Ulcer Cleansing Rinsed/ Irrigated with Saline -Foul Odor after Cleansing No -Bioengineered Tissue No -Bleeding Controlled with Pressure -Offloading No -Treatment Response Procedure Procedure Tolerated Well Tolerated Well #7 left lower leg superior -Time 09:47 -Correct Patient Yes -Correct Side, Site, Position Yes -Correct Procedure Yes -Procedure Performed Yes -Type of Procedure Debridement -Clinical Debridement Subcutaneous -Post Debridement Size (cm) - Length 1.8 -Post Debridement Size (cm) - Width 1.7 -Post Debridement Size (cm) - Depth 0.2 -Total Square Cm 3.06 -Wound/Ulcer Outcome Not Healed -Ulcer Cleansing Rinsed/ Irrigated with Saline -Foul Odor after Cleansing No -Bioengineered Tissue No -Bleeding Controlled with Pressure -Offloading No -Treatment Response Procedure Tolerated Well #4 LEFT ANKLE -Time 09:48 -Correct Patient Yes -Correct Side, Site, Position Yes -Correct Procedure Yes -Procedure Performed Yes -Type of Procedure Debridement -Clinical Debridement Subcutaneous -Post Debridement Size (cm) - Length 18.4 -Post Debridement Size (cm) - Width 8.4 -Post Debridement Size (cm) - Depth 0.3 -Total Square Cm 154.56 -Wound/Ulcer Outcome Not Healed -Ulcer Cleansing Rinsed/ Irrigated with Saline -Foul Odor after Cleansing No -Bioengineered Tissue No -Bleeding Controlled with Pressure -Offloading No -Treatment Response Procedure Tolerated Well Pain Scale: 0-10 Numeric Is Patient Pain Free? Yes Wound debrided: Left lower leg Laterality: Left Type of Debridement: Selective debridement Anesthesia Used: 4% Lidocaine Solution Depth: in the subcutaneous layer Percentage of wound debrided: 100 Instrument Used: 7mm curette Tissue Removed: Devitalized subcutaneous tissue, adherent slough, fibrin, biofilm Severity: Fat Layer Exposed Amount of bleeding with debridement: Mild Bleeding Controlled with: Pressure Patient tolerated procedure well Assessment/Plan Assessment: Peripheral vascular occlusive disease. Nonhealing ulcers resolved. Edema Plan: Patient was carefully examined and evaluated again today. Patient missed his appointment again last week with no good reason. Continues to show noncompliance and care. Ulcer stable this week. A mild selective debridement performed as noted in the clinical panel. The base was dressed with hydrofera blue, followed by adaptic, and a dry sterile absorptive dressing. Patient is to continue with compression stockings as prescribed by Dr. Cade. Patient has been noncompliant with wearing compression as instructed. Three-view x-rays of the left foot and ankle were also ordered previously and they did not demonstrate any acute osseous abnormalities according to the report. Full report is in patient's chart. Patient had MRI taken and impression was read by radiologist is showing no signs of osteomyelitis, however there was a large venous varicosity seen within the subcutaneous tissue in the region of ulcer site. Full detailed report is in the patient's chart. Patient unable to tolerate almost every other dressing that has been tried to this date other than hydrofera blue. The patient was referred to dermatology for a consult and biopsy of ulcer site to gain further information. Biopsy results showed diagnosis as read by the lab: stasis dermatitis with an overlying cutaneous ulceration and reactive epidermal hyperplasia. They noted that the changes seen here are consistent with clinical impression of venous ulcer with reactive epidermal changes. Multiple deeper sections were examined. A PAS stain for fungal elements was negative. The entire path report will be in the patient's chart. He says he is unable to completely stop working, but he does have the option for light duty. Patient had venous duplex performed and followed back up with Dr. Cade recently who says he will be performing a procedure on July 23. We will call to see if it is at all possible for this appointment to be moved up to a sooner date. He is to continue with prescribed thigh-high compression stockings by Dr. Cade. I stressed the importance of keeping pressure completely off of the ulcer and how this will impact his healing potential. Patient is to continue with doxycycline and augmentin as well as prednisone. Patient was instructed to be off his feet as much as possible and to keep the lower extremities elevated while not at work. The importance of compression was also discussed with this patient today. I continue to recommend nutritional supplementation with a high-protein diet at this time in order to help optimize ulcer healing potential. Smoking cessation was stressed again today. All signs and symptoms of local and systemic infection were discussed in great detail with the patient today and he was instructed to go to the emergency room immediately should he notice any of these. All questions were answered to the patient's satisfaction. Patient will follow back up at the wound healing center in [address] Spencer, but was instructed to follow-up sooner if needed before then.
[2019-06-25 09:26] VITALS: BMI 31.4
--- NOTE | 2019-06-25 10:44 | PCM.WC.PN ---
(1) Colonization status Status: Suspected Current Visit: Yes Code(s): Z22.9 - Carrier of infectious disease, unspecified (2) Ulcer of left lower extremity with fat layer exposed Status: Chronic Current Visit: Yes Code(s): L97.922 - Non-pressure chronic ulcer of unspecified part of left lower leg with fat layer exposed (3) Chronic venous insufficiency Status: Chronic Current Visit: Yes Code(s): I87.2 - Venous insufficiency (chronic) (peripheral) (4) Edema, lower extremity Status: Chronic Current Visit: Yes Code(s): R60.0 - Localized edema (5) Pain of left lower extremity Status: Chronic Current Visit: Yes Code(s): M79.605 - Pain in left leg (6) Delayed wound healing Status: Chronic Current Visit: Yes Code(s): T14.8XXD - Other injury of unspecified body region, subsequent encounter (7) Non-compliance with treatment Status: Chronic Current Visit: Yes Code(s): Z91.19 - Patient's noncompliance with other medical treatment and regimen (8) Smoking Status: Chronic Current Visit: Yes Code(s): F17.200 - Nicotine dependence, unspecified, uncomplicated (9) Chronic malnutrition Status: Chronic Current Visit: Yes Code(s): E46 - Unspecified protein-calorie malnutrition Type of Wound Date of Service: 06/25/19 Chief Complaint: ulcers to the left lower leg/foot History of Wound: This is a 54-year-old male presents to wound healing center with a long-standing history of chronic venous insufficiency, chronic venous hypertension, lower extremity edema, lower extremity pain, and chronic left lower extremity ulcer. He is seen today as a courtesy visit for Dr. Elkins. The patient has previously undergone endovenous laser ablation of the left and right great saphenous vein, the small saphenous vein, the left accessory saphenous vein, and an incompetent left calf line camera operator vein located 15 cm proximal to the left medial malleolus. He is currently wearing graduated compression stockings which are documented to be 20-30 mmHg compression and these are thigh high. He reports great compliance with use. He is also had previous arterial work-up with no intervention recommended by letter, his vascular surgeon. He denies taking nutritional supplementation. He saw dermatology and had a biopsy of the ulcer site. He also was previously treated by infectious disease for various contaminations and infections. He is not antibiotics at this time nor does he have any redness or odor coming from the wound. He denies fever, chill, nausea, vomiting, loss of appetite. Progress of Wound: Stable and increased in size compared to last week per nursing chart review - Physical Exam Vital Signs Temp Pulse Resp BP 98.6 F 83 20 H 151/88 H 06/19/19 09:17 06/19/19 09:17 06/19/19 09:17 06/19/19 09:17 General: Alert, Oriented x3, Cooperative, No apparent distress Extremities: No cyanosis, Capillary Refill Less than 3 Seconds, No Calf Tenderness - Negative Lakisha and Hough sign, Diminished Peripheral Pulses, Edema - With leg hyperpigmentation, Tenderness - Mild pain with also manipulation Skin: Ulcer/ Wound - No purulence, erythema, streaking, odor, infection. The wound is primarily granular and there is some fibrous and devitalized tissue noted at the proximal aspect. There is no eschar deep bone or tendon exposed. The peripheral skin is hairless, atrophic, and discolored Wound Measurements and Assessment WC - Nurse 1 - General Ulcer Measurement Start: 06/05/19 09:09 Freq: Status: Active Protocol: Activity Type Activity Date Activity User E-Sign Co-Sign Detail Recorded Client Recorded Date Recorded By Document 06/25/19 09:26 CARLOS [id number] 06/25/19 09:32 CARLOS 06/25/19 09:26 Wound Center Nurse 1 [Ulcer Assessment] #9- LLE WOUND CLUSTER -Combined with other wound No -Current Size (cm) - Length 22.5 -Current Size (cm) - Width 8.0 -Current Size (cm) - Depth 0.2 -Total Square Cm 180.00 -Photo Taken No -Epithelialization None Present -Tunneling No -Undermining/Tunneling No -Circular Undermining No -Exudate Amt Large -Exudate Type Serosanguineous -Wound Margin Flat & Intact -Granulation Amt Large (67-100%) -Granulation Quality Red -Slough/Fibrin Yes -Necrosis Amt Medium (34-66%) -Necrotic Tissue Type Adherent Slough -Structure Exposed N/A -Texture (Ara-wound Skin Appearance) Assessed, Localized Edema -Moisture (Ara-wound Skin Appearance Assessed,Dry/ ) Scaly -Color (Ara-wound Skin Appearance) Assessed, Hemosiderin Staining -Temperature (Ara-wound Skin No Abnormality Appearance) (Pt Warm) -Tenderness on Palpation (Ara-wound No Skin Appearance) -Ulcer Cleansing Wound Cleanser -Foul Odor after Cleansing No -Anesthetic Used 5% Lidocaine Gel [Edema Assessment] -Lower Limb Edema Present Yes -Left Calf (cm) 34.7 -Left Ankle (cm) 23.6 WC - Nurse 2 - General Ulcer CM Notes Start: 06/05/19 09:09 Freq: Status: Active Protocol: Activity Type Activity Date Activity User E-Sign Co-Sign Detail Recorded Client Recorded Date Recorded By Document 06/25/19 10:03 AN [id number] 06/25/19 10:08 AN 06/25/19 10:03 Wound Center Nurse 2 [Procedure/Treatment] #9- LLE WOUND CLUSTER -Time 10:08 -Correct Patient Yes -Correct Side, Site, Position Yes -Correct Procedure Yes -Procedure Performed Yes -Type of Procedure Debridement -Clinical Debridement Subcutaneous -Post Debridement Size (cm) - Length 22.6 -Post Debridement Size (cm) - Width 8.0 -Post Debridement Size (cm) - Depth 0.2 -Total Square Cm 180.80 -Wound/Ulcer Outcome Not Healed -Treatment Response Procedure Tolerated Well [See Physician Procedure note for Specifics] Pain Scale: 0-10 Numeric [Pain] -Is Patient Pain Free? Yes Musculoskeletal: No Tenderness to Palpation of Joints or Extremities, Muscle Wasting, - - Compartment soft to palpate of lower extremity Neurological: Sensory exam intact to light touch and pain Psych/Mental Status: Normal Affect, Appropriate Debridement Note Post-Debridement Measurements/Treatment - Nurse 2 - General Ulcer CM Notes Start: 06/05/19 09:09 Freq: Status: Active Protocol: Activity Type Activity Date Activity User E-Sign Co-Sign Detail Recorded Client Recorded Date Recorded By Document 06/05/19 09:42 AN [id number] 06/05/19 09:48 AN Document 06/19/19 09:35 [id number] 06/19/19 09:37 Document 06/25/19 10:03 AN [id number] 06/25/19 10:08 AN 06/05/19 06/19/19 06/25/19 09:42 09:35 10:03 Wound Center Nurse 2 #9- LLE WOUND CLUSTER -Time 10:08 -Correct Patient Yes -Correct Side, Site, Position Yes -Correct Procedure Yes -Procedure Performed Yes -Type of Procedure Debridement -Clinical Debridement Subcutaneous -Post Debridement Size (cm) - Length 22.6 -Post Debridement Size (cm) - Width 8.0 -Post Debridement Size (cm) - Depth 0.2 -Total Square Cm 180.80 -Wound/Ulcer Outcome Not Healed -Treatment Response Procedure Tolerated Well #8 left dorsal foot cluster -Time 09:47 09:35 -Correct Patient Yes -Correct Side, Site, Position Yes -Correct Procedure Yes -Procedure Performed Yes -Type of Procedure Debridement -Clinical Debridement Subcutaneous -Post Debridement Size (cm) - Length 1.7 -Post Debridement Size (cm) - Width 3.7 -Post Debridement Size (cm) - Depth 0.1 -Total Square Cm 6.29 -Wound/Ulcer Outcome Not Healed -Ulcer Cleansing Rinsed/ Irrigated with Saline -Foul Odor after Cleansing No -Bioengineered Tissue No -Bleeding Controlled with Pressure -Offloading No -Treatment Response Procedure Procedure Tolerated Well Tolerated Well #7 left lower leg superior -Time 09:47 -Correct Patient Yes -Correct Side, Site, Position Yes -Correct Procedure Yes -Procedure Performed Yes -Type of Procedure Debridement -Clinical Debridement Subcutaneous -Post Debridement Size (cm) - Length 1.8 -Post Debridement Size (cm) - Width 1.7 -Post Debridement Size (cm) - Depth 0.2 -Total Square Cm 3.06 -Wound/Ulcer Outcome Not Healed -Ulcer Cleansing Rinsed/ Irrigated with Saline -Foul Odor after Cleansing No -Bioengineered Tissue No -Bleeding Controlled with Pressure -Offloading No -Treatment Response Procedure Tolerated Well #4 LEFT ANKLE -Time 09:48 -Correct Patient Yes -Correct Side, Site, Position Yes -Correct Procedure Yes -Procedure Performed Yes -Type of Procedure Debridement -Clinical Debridement Subcutaneous -Post Debridement Size (cm) - Length 18.4 -Post Debridement Size (cm) - Width 8.4 -Post Debridement Size (cm) - Depth 0.3 -Total Square Cm 154.56 -Wound/Ulcer Outcome Not Healed -Ulcer Cleansing Rinsed/ Irrigated with Saline -Foul Odor after Cleansing No -Bioengineered Tissue No -Bleeding Controlled with Pressure -Offloading No -Treatment Response Procedure Tolerated Well Pain Scale: 0-10 Numeric Is Patient Pain Free? Yes Yes Wound debrided: leg Laterality: Left Type of Debridement: Excisional debridement Anesthesia Used: 5% Lidocaine Gel Depth: in the subcutaneous layer Percentage of wound debrided: 100 Instrument Used: #15 blade Tissue Removed: fibrous, devitalized subcutaneous tissue, biofilm, slough Severity: Fat Layer Exposed Amount of bleeding with debridement: Mild Bleeding Controlled with: Pressure Patient tolerated procedure well Assessment/Plan Active Problems Ulcer of left lower extremity with fat layer exposed (Chronic) Chronic venous insufficiency (Chronic) Edema, lower extremity (Chronic) Pain of left lower extremity (Chronic) Delayed wound healing (Chronic) Non-compliance with treatment (Chronic) Smoking (Chronic) Chronic malnutrition (Chronic) Assessment: Chronic left leg ulcer. Venous insufficiency. Leg edema. Delayed healing. Malnutrition suspected. Noncompliance. Continued smoking habits. Bacterial colonization and contamination is suspected Plan: Patient was carefully examined and evaluated again today. Subcutaneous excisional debridement was performed as noted in the clinical panel. To change dressing daily with Aquacel Ag. Patient is to continue with compression stockings as prescribed by Dr. Cade. He is also scheduled for intervention on July 18, 2019 for what sounds like a venous ablation for sclerosing procedure. To follow-up as scheduled. I recommend nutritional supplementation. A prescription for nutritional supplement, James, was provided and he was advised on the purpose and proper use. Smoking cessation was also discussed at length today and he understands this causes significant healing impairment or failure. He is at risk for limb loss due to this condition. In addition to compliance improvement, I also offered him application of advanced wound healing product with operating room surgical debridement. I recommend amnio fill and versa jet debridement. He would like to think about this little bit longer and is not amenable to proceed at this time. The indication, planned procedures, possible benefits, risks and anticipated healing time management were discussed. Due to his recurrent infection history and proximal devitalized tissue I recommend washing the leg with Hibiclens daily for 1 week only to remove any bacterial bio film that may be adherent appearing healing. Cultures were also obtained today and sent for aerobic, anaerobic, acid-fast, fungal testing. I will wait to see these results to determine if additional antibiotics are necessary or if the topical antimicrobial temporary soap wash alone is appropriate. Prior work-up intervention is noted: Three-view x-rays of the left foot and ankle were also reviewed previously and they did not demonstrate any acute osseous abnormalities according to the report. Patient had MRI taken and impression was read by radiologist is showing no signs of osteomyelitis, however there was a large venous varicosity seen within the subcutaneous tissue in the region of ulcer site. Full detailed report is in the patient's chart.The patient was referred to dermatology for a consult and biopsy of ulcer site to gain further information. Biopsy results showed diagnosis as read by the lab: stasis dermatitis with an overlying cutaneous ulceration and reactive epidermal hyperplasia. They noted that the changes seen here are consistent with clinical impression of venous ulcer with reactive epidermal changes. Multiple deeper sections were examined. A PAS stain for fungal elements was negative. The entire path report will be in the patient's chart. He says he is unable to completely stop working, but he does have the option for light duty. All signs and symptoms of local and systemic infection were discussed in great detail with the patient today and he was instructed to go to the emergency room immediately should he notice any of these. All questions were answered to the patient's satisfaction. Patient will follow back up at the wound healing center in [address] Elkins, but was instructed to follow-up sooner if needed before then.
== END 2019-06-28 23:59 ==
LOC: WC 09:15
PROVIDERS: Referring Provider Podiatrist; Visit Provider Podiatrist
DX: I73.9 Peripheral vascular disease, unspecified (principal); I87.2 Venous insufficiency (chronic) (peripheral); L97.822 Non-pressure chronic ulcer of other part of left lower leg with fat layer exposed; Z91.19 Patient's noncompliance with other medical treatment and regimen; R60.0 Localized edema; M79.605 Pain in left leg
CPT/HCPCS: 11042; 11045; 87015; 87070; 87075; 87077; 87101; 87116; 87176; 87186; 87205; 87206; 97597

== ENCOUNTER 2019-07-17 09:15 | Outpatient (RCR) | payer BC, SELFPAY ==
[2019-06-29 00:50] VITALS: BP 151/88; PULSE 83; RESP 20; TEMP 37
[2019-07-03 09:28] VITALS: BP 153/81; PULSE 89; RESP 16; TEMP 37; BMI 31.4
--- NOTE | 2019-07-03 11:59 | PN.PCM_ITS ---
(1) Ulcer of left lower extremity with fat layer exposed Status: Chronic Current Visit: No Code(s): L97.922 - Non-pressure chronic ulcer of unspecified part of left lower leg with fat layer exposed (2) PVD (peripheral vascular disease) Status: Acute Current Visit: No Code(s): I73.9 - Peripheral vascular disease, unspecified (3) Chronic venous insufficiency Status: Chronic Current Visit: No Code(s): I87.2 - Venous insufficiency (chronic) (peripheral) (4) Edema, lower extremity Status: Chronic Current Visit: No Code(s): R60.0 - Localized edema (5) Pain of left lower extremity Status: Chronic Current Visit: No Code(s): M79.605 - Pain in left leg (6) Delayed wound healing Status: Chronic Current Visit: No Code(s): T14.8XXD - Other injury of unspecified body region, subsequent encounter (7) Non-compliance with treatment Status: Chronic Current Visit: No Code(s): Z91.19 - Patient's noncompliance with other medical treatment and regimen Type of Wound Date of Service: 07/03/19 Chief Complaint: ulcers to the left lower leg/foot History of Wound: This is a 54-year-old male presents to wound healing center with a long-standing history of chronic venous insufficiency, chronic venous hypertension, lower extremity edema, lower extremity pain, and chronic left lower extremity ulcer. He is seen today as a courtesy visit for Dr. Elkins. 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 He is currently wearing graduated compression stockings which are documented to be 20-30 mmHg compression and these are thigh high. He reports great compliance with use. He is also had previous arterial work-up with no intervention recommended by letter, his vascular surgeon. He denies taking nutritional supplementation. He saw dermatology and had a biopsy of the ulcer site. He also was previously treated by infectious disease for various contaminations and infections. He is not antibiotics at this time nor does he have any redness or odor coming from the wound. He denies fever, chill, nausea, vomiting, loss of appetite. Progress of Wound: Ulcer shows slight improvement. Patient denies any feelings of nausea, vomiting, fever, chills at this time. - Physical Exam Vital Signs Temp Pulse Resp BP 98.6 F 89 16 153/81 H 07/03/19 09:07/03/19 09:07/03/19 09:07/03/19 09:28 General: Alert, Oriented x3, Cooperative, No apparent distress Extremities: Capillary Refill Less than 3 Seconds, No Calf Tenderness - Negative Lakisha and Hough signs, Diminished Peripheral Pulses, Edema - Mild lower extremity edema Skin: Ulcer/ Wound - Ulcer to left medial ankle with fat layer exposed. Site appears less irritated this week. The base continues to be a mixture of devitalized subcutaneous tissue, slough, fibrin, granular tissue, biofilm, as well as some surrounding hyperkeratotic tissue. There continues to be no probing to bone, no tracking, no undermining, no surrounding or extending cellulitis, no purulence, no malodor, no increase in warmth to the ulcer site. Moderate to heavy drainage noted. Wound Measurements and Assessment WC - Nurse 1 - General Ulcer Measurement Start: 07/03/19 09:28 Freq: Status: Active Protocol: Activity Type Activity Date Activity User E-Sign Co-Sign Detail Recorded Client Recorded Date Recorded By Document 07/03/19 09: BS [id number] 07/03/19 09:33 BS 07/03/19 09:28 Wound Center Nurse 1 [Ulcer Assessment] #9- LLE WOUND CLUSTER -Combined with other wound No -Current Size (cm) - Length 23.0 -Current Size (cm) - Width 8.0 -Current Size (cm) - Depth 0.2 -Total Square Cm 184.00 -Photo Taken No -Exudate Amt Large -Granulation Quality [place],Red -Necrotic Tissue Type Adherent Slough -Texture (Ara-wound Skin Appearance) Assessed,Rash -Moisture (Ara-wound Skin Appearance Assessed, ) Maceration, Weeping -Color (Ara-wound Skin Appearance) Assessed, Hemosiderin Staining -Temperature (Ara-wound Skin No Abnormality Appearance) (Pt Warm) -Tenderness on Palpation (Ara-wound No Skin Appearance) -Ulcer Cleansing Soap and water -Foul Odor after Cleansing No -Anesthetic Used 5% Lidocaine Gel WC - Nurse 2 - General Ulcer CM Notes Start: 07/03/19 09:28 Freq: Status: Active Protocol: Activity Type Activity Date Activity User E-Sign Co-Sign Detail Recorded Client Recorded Date Recorded By Document 07/03/19 10:12 AN [id number] 07/03/19 10:17 AN 07/03/19 10:12 Wound Center Nurse 2 [Procedure/Treatment] -Time 10:14 -Correct Patient Yes -Correct Side, Site, Position Yes -Correct Procedure Yes -Procedure Performed Yes -Type of Procedure Debridement -Clinical Debridement Selective -Post Debridement Size (cm) - Length 22.5 -Post Debridement Size (cm) - Width 11.0 -Post Debridement Size (cm) - Depth 0.3 -Total Square Cm 247.50 -Wound/Ulcer Outcome Not Healed -Ulcer Cleansing Rinsed/ Irrigated with Saline -Foul Odor after Cleansing No -Bioengineered Tissue No -Bleeding Controlled with Pressure -Offloading No -Treatment Response Procedure Tolerated Well [See Physician Procedure note for Specifics] Pain Scale: 0-10 Numeric [Pain] -Is Patient Pain Free? Yes Musculoskeletal: Tenderness - Some minor tenderness with manipulation of ulcer site Neurological: Sensory exam intact to light touch and pain - With some altered sensation noted to the lower extremity Psych/Mental Status: Normal Affect, Appropriate Debridement Note Post-Debridement Measurements/Treatment WC - Nurse 2 - General Ulcer CM Notes Start: 07/03/19 09:28 Freq: Status: Active Protocol: Activity Type Activity Date Activity User E-Sign Co-Sign Detail Recorded Client Recorded Date Recorded By Document 07/03/19 10:12 AN [id number] 07/03/19 10:17 AN 07/03/19 10:12 Wound Center Nurse 2 #9- LLE WOUND CLUSTER -Time 10:14 -Correct Patient Yes -Correct Side, Site, Position Yes -Correct Procedure Yes -Procedure Performed Yes -Type of Procedure Debridement -Clinical Debridement Selective -Post Debridement Size (cm) - Length 22.5 -Post Debridement Size (cm) - Width 11.0 -Post Debridement Size (cm) - Depth 0.3 -Total Square Cm 247.50 -Wound/Ulcer Outcome Not Healed -Ulcer Cleansing Rinsed/ Irrigated with Saline -Foul Odor after Cleansing No -Bioengineered Tissue No -Bleeding Controlled with Pressure -Offloading No -Treatment Response Procedure Tolerated Well Pain Scale: 0-10 Numeric Is Patient Pain Free? Yes Wound debrided: Left lower leg Laterality: Left Type of Debridement: Selective debridement Anesthesia Used: 5% Lidocaine Gel Depth: in the subcutaneous layer Percentage of wound debrided: 100 Instrument Used: 7mm curette Tissue Removed: Devitalized subcutaneous tissue, adherent slough, fibrin, biofilm Severity: Fat Layer Exposed Amount of bleeding with debridement: Mild Bleeding Controlled with: Pressure Patient tolerated procedure well Assessment/Plan Assessment: Chronic left leg ulcer. Venous insufficiency. Leg edema. Delayed healing. Malnutrition suspected. Noncompliance. Continued smoking habits. Bacterial colonization and contamination is suspected Plan: Patient was carefully examined and evaluated again today. Patient continues to be noncompliant and care. Ulcer stable this week. A mild selective debridement performed as noted in the clinical panel. The base was dressed with Aquacel Ag, followed by adaptic, and a dry sterile absorptive dressing. Patient is to continue with compression stockings as prescribed by Dr. Cade. Patient has been noncompliant with wearing compression as instructed. Three-view x-rays of the left foot and ankle were also ordered previously and they did not demonstrate any acute osseous abnormalities according to the report. Full report is in patient's chart. Patient had MRI taken and impression was read by radiologist is showing no signs of osteomyelitis, however there was a large venous varicosity seen within the subcutaneous tissue in the region of ulcer site. Full detailed report is in the patient's chart. Patient unable to tolerate almost every other dressing that has been tried to this date other than hydrofera blue. The patient was referred to dermatology for a consult and biopsy of ulcer site to gain further information. Biopsy results showed diagnosis as read by the lab: stasis dermatitis with an overlying cutaneous ulceration and reactive epidermal hyperplasia. They noted that the changes seen here are consistent with clinical impression of venous ulcer with reactive epidermal changes. Multiple deeper sections were examined. A PAS stain for fungal elements was negative. The entire path report will be in the patient's chart. He says he is unable to completely stop working, but he does have the option for light duty. Patient had venous duplex performed and followed back up with Dr. Cade recently who says he will be performing a procedure on July 23. We will call to see if it is at all possible for this appointment to be moved up to a sooner date. He is to continue with prescribed thigh-high compression stockings by Dr. Cade. I stressed the importance of keeping pressure completely off of the ulcer and how this will impact his healing potential. Patient was instructed to be off his feet as much as possible and to keep the lower extremities elevated while not at work. The importance of compression was also discussed with this patient today. I continue to recommend nutritional supplementation with a high-protein diet at this time in order to help optimize ulcer healing potential. Smoking cessation was stressed again today. Patient also saw Dr. Spencer last week who offered the patient a surgical debridement with advanced wound graft placement, but patient denied this option. Patient was again informed that he remains at risk for limb loss. All signs and symptoms of local and systemic infection were discussed in great detail with the patient today and he was instructed to go to the emergency room immediately should he notice any of these. All questions were answered to the patient's satisfaction. Patient will follow back up at the wound healing center in 1 week with, but was instructed to follow-up sooner if needed before then.
[2019-07-10 09:28] VITALS: BP 157/91; PULSE 89; RESP 18; TEMP 36.6; BMI 31.4
--- NOTE | 2019-07-10 10:19 | PN.PCM_ITS ---
(1) Ulcer of left lower extremity with fat layer exposed Status: Chronic Current Visit: No Code(s): L97.922 - Non-pressure chronic ulcer of unspecified part of left lower leg with fat layer exposed (2) PVD (peripheral vascular disease) Status: Acute Current Visit: No Code(s): I73.9 - Peripheral vascular disease, unspecified (3) Chronic venous insufficiency Status: Chronic Current Visit: No Code(s): I87.2 - Venous insufficiency (chronic) (peripheral) (4) Edema, lower extremity Status: Chronic Current Visit: No Code(s): R60.0 - Localized edema (5) Pain of left lower extremity Status: Chronic Current Visit: No Code(s): M79.605 - Pain in left leg (6) Delayed wound healing Status: Chronic Current Visit: No Code(s): T14.8XXD - Other injury of unspecified body region, subsequent encounter (7) Non-compliance with treatment Status: Chronic Current Visit: No Code(s): Z91.19 - Patient's noncompliance with other medical treatment and regimen Type of Wound Date of Service: 07/10/19 Chief Complaint: ulcers to the left lower leg/foot History of Wound: This is a 54-year-old male presents to wound healing center with a long-standing history of chronic venous insufficiency, chronic venous hypertension, lower extremity edema, lower extremity pain, and chronic left lower extremity ulcer. He is seen today as a courtesy visit for Dr. Elkins. The patient has previously undergone endovenous laser ablation of the left and right great saphenous vein, the small saphenous vein, the left accessory saphenous vein, and an incompetent left calf fourdrinier wire weaver vein located 15 cm proximal to the left medial malleolus. He is currently wearing graduated compression stockings which are documented to be 20-30 mmHg compression and these are thigh high. He reports great compliance with use. He is also had previous arterial work-up with no intervention recommended by letter, his vascular surgeon. He denies taking nutritional supplementation. He saw dermatology and had a biopsy of the ulcer site. He also was previously treated by infectious disease for various contaminations and infections. He is not antibiotics at this time nor does he have any redness or odor coming from the wound. He denies fever, chill, nausea, vomiting, loss of appetite. Progress of Wound: Ulcer shows slight improvement again today. Patient denies any feelings of nausea, vomiting, fever, chills at this time. - Physical Exam Vital Signs Temp Pulse Resp BP 97.8 F 89 18 157/91 H 07/10/19 09:28 07/10/19 09:28 07/10/19 09:28 07/10/19 09:28 General: Alert, Oriented x3, Cooperative, No apparent distress Extremities: Capillary Refill Less than 3 Seconds, No Calf Tenderness - Negative Lakisha and Hough signs, Diminished Peripheral Pulses, Edema - Mild lower extremity edema Skin: Ulcer/ Wound - Ulcer to left medial ankle with fat layer exposed. Site appears slightly improved again this week. The base continues to be a mixture of devitalized subcutaneous tissue, slough, fibrin, granular tissue, biofilm, as well as some surrounding hyperkeratotic tissue. There continues to be no probing to bone, no tracking, no undermining, no surrounding or extending cellulitis, no purulence, no malodor, no increase in warmth to the ulcer site. Moderate to heavy drainage noted. Wound Measurements and Assessment WC - Nurse 1 - General Ulcer Measurement Start: 07/03/19 09:28 Freq: Status: Active Protocol: Activity Type Activity Date Activity User E-Sign Co-Sign Detail Recorded Client Recorded Date Recorded By Document 07/10/19 09:28 IA [id number] 07/10/19 09:31 IA 07/10/19 09:28 Wound Center Nurse 1 [Ulcer Assessment] #9- LLE WOUND CLUSTER -Current Size (cm) - Length 23 -Current Size (cm) - Width 12 -Current Size (cm) - Depth 0.2 -Total Square Cm 276 -Exudate Amt Medium -Exudate Type Sanguineous -Wound Margin Distinct, Outline Attached -Granulation Amt Large (67-100%) -Granulation Quality Red -Slough/Fibrin Yes -Necrosis Amt Small (1-33%) -Necrotic Tissue Type Eschar -Texture (Ara-wound Skin Appearance) Assessed, Scarring -Moisture (Ara-wound Skin Appearance Assessed,Dry/ ) Scaly -Color (Ara-wound Skin Appearance) Assessed, Erythema, Hemosiderin Staining -Temperature (Ara-wound Skin No Abnormality Appearance) (Pt Warm) -Tenderness on Palpation (Ara-wound Yes Skin Appearance) -Ulcer Cleansing Rinsed/ Irrigated with Saline -Foul Odor after Cleansing No -Anesthetic Used 4% Lidocaine Solution [Edema Assessment] -Lower Limb Edema Present NA WC - Nurse 2 - General Ulcer CM Notes Start: 07/03/19 09:28 Freq: Status: Active Protocol: Activity Type Activity Date Activity User E-Sign Co-Sign Detail Recorded Client Recorded Date Recorded By Document 07/10/19 09:47 AN [id number] 07/10/19 09:48 AN 07/10/19 09:47 Wound Center Nurse 2 [Procedure/Treatment] #9- LLE WOUND CLUSTER -Time 09:48 -Correct Patient Yes -Correct Side, Site, Position Yes -Correct Procedure Yes -Procedure Performed Yes -Wound/Ulcer Outcome Not Healed -Ulcer Cleansing Rinsed/ Irrigated with Saline -Foul Odor after Cleansing No -Bioengineered Tissue No -Bleeding Controlled with Pressure -Offloading No -Treatment Response Procedure Tolerated Well [See Physician Procedure note for Specifics] Pain Scale: 0-10 Numeric [Pain] -Is Patient Pain Free? Yes Musculoskeletal: Tenderness - Very minor tenderness with manipulation and some areas of the ulcer site Neurological: Sensory exam intact to light touch and pain - With some altered sensation noted to lower extremity Psych/Mental Status: Normal Affect, Appropriate Debridement Note Post-Debridement Measurements/Treatment WC - Nurse 2 - General Ulcer CM Notes Start: 07/03/19 09:28 Freq: Status: Active Protocol: Activity Type Activity Date Activity User E-Sign Co-Sign Detail Recorded Client Recorded Date Recorded By Document 07/03/19 10:12 AN [id number] 07/03/19 10:17 AN Document 07/10/19 09:47 AN [id number] 07/10/19 09:48 AN 07/03/19 07/10/19 10:12 09:47 Wound Center Nurse 2 #9- LLE WOUND CLUSTER -Time 10:14 09:48 -Correct Patient Yes Yes -Correct Side, Site, Position Yes Yes -Correct Procedure Yes Yes -Procedure Performed Yes Yes -Type of Procedure Debridement -Clinical Debridement Selective -Post Debridement Size (cm) - Length 22.5 -Post Debridement Size (cm) - Width 11.0 -Post Debridement Size (cm) - Depth 0.3 -Total Square Cm 247.50 -Wound/Ulcer Outcome Not Healed Not Healed -Ulcer Cleansing Rinsed/ Rinsed/ Irrigated with Irrigated with Saline Saline -Foul Odor after Cleansing No No -Bioengineered Tissue No No -Bleeding Controlled with Pressure Pressure -Offloading No No -Treatment Response Procedure Procedure Tolerated Well Tolerated Well Pain Scale: 0-10 Numeric Is Patient Pain Free? Yes Yes No debridement was completed today Assessment/Plan Assessment: Chronic left leg ulcer. Venous insufficiency. Leg edema. Delayed healing. Malnutrition suspected. Noncompliance. Continued smoking habits. Bacterial colonization and contamination is suspected Plan: Patient was carefully examined and evaluated again today. Patient continues to be noncompliant and care. Ulcer appears slightly improved again this week. Some loose slough tissue was carefully removed using a moistened 4 x 4, but no significant debridement was performed today. The base was dressed with Aquacel Ag, followed by adaptic, and a dry sterile absorptive dressing. Patient is to continue with compression stockings as prescribed by Dr. Cade. Patient has been noncompliant with wearing compression as instructed. Three- view x-rays of the left foot and ankle were also ordered previously and they did not demonstrate any acute osseous abnormalities according to the report. Full report is in patient's chart. Patient had MRI taken and impression was read by radiologist is showing no signs of osteomyelitis, however there was a large venous varicosity seen within the subcutaneous tissue in the region of ulcer site. Full detailed report is in the patient's chart. Patient unable to tolerate almost every other dressing that has been tried to this date other than hydrofera blue. The patient was referred to dermatology for a consult and biopsy of ulcer site to gain further information. Biopsy results showed diagnosis as read by the lab: stasis dermatitis with an overlying cutaneous ulceration and reactive epidermal hyperplasia. They noted that the changes seen here are consistent with clinical impression of venous ulcer with reactive epidermal changes. Multiple deeper sections were examined. A PAS stain for fungal elements was negative. The entire path report will be in the patient's chart. He says he is unable to completely stop working, but he does have the option for light duty. Patient had venous duplex performed and followed back up with Dr. Cade recently who says he will be performing a procedure on July 23. We will call to see if it is at all possible for this appointment to be moved up to a sooner date. He is to continue with prescribed thigh-high compression stockings by Dr. Cade. I stressed the importance of keeping pressure completely off of the ulcer and how this will impact his healing potential. Patient was instructed to be off his feet as much as possible and to keep the lower extremities elevated while not at work. The importance of compression was also discussed with this patient today. I continue to recommend nutritional supplementation with a high-protein diet at this time in order to help optimize ulcer healing potential. Smoking cessation was stressed again today. Patient also saw Dr. Spencer as a consult as well who offered the patient a surgical debridement with advanced wound graft placement, but patient denied this option. Patient was again informed that he remains at risk for limb loss. All signs and symptoms of local and systemic infection were discussed in great detail with the patient today and he was instructed to go to the emergency room immediately should he notice any of these. All questions were answered to the patient's satisfaction. Patient will follow back up at the wound healing center in 1 week with, but was instructed to follow-up sooner if needed before then.
[2019-07-17 09:32] VITALS: BP 167/94; PULSE 90; RESP 18; TEMP 37; BMI 31.4
--- NOTE | 2019-07-17 10:05 | PCM.WC.PN ---
(1) Ulcer of left lower extremity with fat layer exposed Status: Chronic Current Visit: No Code(s): L97.922 - Non-pressure chronic ulcer of unspecified part of left lower leg with fat layer exposed (2) PVD (peripheral vascular disease) Status: Acute Current Visit: No Code(s): I73.9 - Peripheral vascular disease, unspecified (3) Chronic venous insufficiency Status: Chronic Current Visit: No Code(s): I87.2 - Venous insufficiency (chronic) (peripheral) (4) Edema, lower extremity Status: Chronic Current Visit: No Code(s): R60.0 - Localized edema (5) Pain of left lower extremity Status: Chronic Current Visit: No Code(s): M79.605 - Pain in left leg (6) Delayed wound healing Status: Chronic Current Visit: No Code(s): T14.8XXD - Other injury of unspecified body region, subsequent encounter (7) Non-compliance with treatment Status: Chronic Current Visit: No Code(s): Z91.19 - Patient's noncompliance with other medical treatment and regimen Type of Wound Date of Service: 07/17/19 Chief Complaint: ulcers to the left lower leg/foot History of Wound: This is a 54-year-old male presents to wound healing center with a long-standing history of chronic venous insufficiency, chronic venous hypertension, lower extremity edema, lower extremity pain, and chronic left lower extremity ulcer. He is seen today as a courtesy visit for Dr. Elkins. The patient has previously undergone endovenous laser ablation of the left and right great saphenous vein, the small saphenous vein, the left accessory saphenous vein, and an incompetent left calf sanitary napkin machine tender vein located 15 cm proximal to the left medial malleolus. He is currently wearing graduated compression stockings which are documented to be 20-30 mmHg compression and these are thigh high. He reports great compliance with use. He is also had previous arterial work-up with no intervention recommended by letter, his vascular surgeon. He denies taking nutritional supplementation. He saw dermatology and had a biopsy of the ulcer site. He also was previously treated by infectious disease for various contaminations and infections. He is not antibiotics at this time nor does he have any redness or odor coming from the wound. He denies fever, chill, nausea, vomiting, loss of appetite. Progress of Wound: Ulcer stable today. Patient denies any feelings of nausea, vomiting, fever, chills at this time. - Physical Exam Vital Signs Temp Pulse Resp BP 98.6 F 90 18 167/94 H 07/17/19 09:32 07/17/19 09:32 07/17/19 09:32 07/17/19 09:32 General: Alert, Oriented x3, Cooperative, No apparent distress Extremities: Capillary Refill Less than 3 Seconds, No Calf Tenderness - Negative Lakisha and Hough signs bilateral, Diminished Peripheral Pulses, Edema - Mild lower extremity edema Skin: Ulcer/ Wound - Ulcer to left medial ankle with fat layer exposed. Ulcer site stable. The base continues to be a mixture of devitalized subcutaneous tissue, slough, fibrin, granular tissue, biofilm, as well as some surrounding hyperkeratotic tissue. There continues to be no probing to bone, no tracking, no undermining, no surrounding or extending cellulitis, no purulence, no malodor, no increase in warmth to the ulcer site. Moderate to heavy drainage noted. Wound Measurements and Assessment WC - Nurse 1 - General Ulcer Measurement Start: 07/03/19 09:28 Freq: Status: Active Protocol: Activity Type Activity Date Activity User E-Sign Co-Sign Detail Recorded Client Recorded Date Recorded By Document 07/17/19 09:32 [id number] 07/17/19 09:39 BS 07/17/19 09:32 Wound Center Nurse 1 [Ulcer Assessment] #9- LLE WOUND CLUSTER -Combined with other wound No -Current Size (cm) - Length 25.0 -Current Size (cm) - Width 9.0 -Current Size (cm) - Depth 0.2 -Total Square Cm 225.00 -Photo Taken No -Tunneling No -Undermining/Tunneling No -Exudate Amt Medium -Granulation Quality [place],Red -Necrotic Tissue Type Eschar -Texture (Ara-wound Skin Appearance) Assessed, Scarring -Moisture (Ara-wound Skin Appearance Assessed, ) Maceration, Weeping -Color (Ara-wound Skin Appearance) Assessed, Hemosiderin Staining -Tenderness on Palpation (Ara-wound No Skin Appearance) -Ulcer Cleansing Rinsed/ Irrigated with Saline -Anesthetic Used 5% Lidocaine Gel KIMBERLY - Nurse 2 - General Ulcer CM Notes Start: 07/03/19 09:28 Freq: Status: Active Protocol: Activity Type Activity Date Activity User E-Sign Co-Sign Detail Recorded Client Recorded Date Recorded By Document 07/17/19 09:55 AN [id number] 07/17/19 09:56 AN 07/17/19 09:55 Wound Center Nurse 2 [Procedure/Treatment] -Procedure Performed No [See Physician Procedure note for Specifics] Pain Scale: 0-10 Numeric [Pain] -Is Patient Pain Free? Yes Musculoskeletal: Tenderness - Some very minor tenderness with manipulation of some areas of the ulcer site Neurological: Sensory exam intact to light touch and pain - With some altered sensation noted to the lower extremity Psych/Mental Status: Normal Affect, Appropriate Debridement Note Post-Debridement Measurements/Treatment WC - Nurse 2 - General Ulcer CM Notes Start: 07/03/19 09:28 Freq: Status: Active Protocol: Activity Type Activity Date Activity User E-Sign Co-Sign Detail Recorded Client Recorded Date Recorded By Document 07/03/19 10:12 AN [id number] 07/03/19 10:17 AN Document 07/10/19 09:47 AN [id number] 07/10/19 09:48 AN Document 07/17/19 09:55 AN [id number] 07/17/19 09:56 AN 07/03/19 07/10/19 07/17/19 10:12 09:47 09:55 Wound Center Nurse 2 #9- LLE WOUND CLUSTER -Time 10:14 09:48 -Correct Patient Yes Yes -Correct Side, Site, Position Yes Yes -Correct Procedure Yes Yes -Procedure Performed Yes Yes No -Type of Procedure Debridement -Clinical Debridement Selective -Post Debridement Size (cm) - Length 22.5 -Post Debridement Size (cm) - Width 11.0 -Post Debridement Size (cm) - Depth 0.3 -Total Square Cm 247.50 -Wound/Ulcer Outcome Not Healed Not Healed -Ulcer Cleansing Rinsed/ Rinsed/ Irrigated with Irrigated with Saline Saline -Foul Odor after Cleansing No No -Bioengineered Tissue No No -Bleeding Controlled with Pressure Pressure -Offloading No No -Treatment Response Procedure Procedure Tolerated Well Tolerated Well Pain Scale: 0-10 Numeric Is Patient Pain Free? Yes Yes Yes No debridement was completed today Assessment/Plan Assessment: Chronic left leg ulcer. Venous insufficiency. Leg edema. Delayed healing. Malnutrition suspected. Noncompliance. Continued smoking habits. Bacterial colonization and contamination is suspected Plan: Patient was carefully examined and evaluated again today. Patient continues to be noncompliant and care, and while he claims that he wears his compression stocking, he never has it on during clinic. Ulcer appears stable this week. Some loose slough tissue was carefully removed using a moistened 4 x 4, but no significant debridement was performed today. The base was dressed with Aquacel Ag, followed by adaptic, and a dry sterile absorptive dressing. Patient is to continue with compression stockings as prescribed by Dr. Cade. Patient has been noncompliant with wearing compression as instructed. Three-view x-rays of the left foot and ankle were also ordered previously and they did not demonstrate any acute osseous abnormalities according to the report. Full report is in patient's chart. Patient had MRI taken and impression was read by radiologist is showing no signs of osteomyelitis, however there was a large venous varicosity seen within the subcutaneous tissue in the region of ulcer site. Full detailed report is in the patient's chart. Patient unable to tolerate almost every other dressing that has been tried to this date other than hydrofera blue and Aquacel Ag. The patient was referred to dermatology for a consult and biopsy of ulcer site to gain further information. Biopsy results showed diagnosis as read by the lab: stasis dermatitis with an overlying cutaneous ulceration and reactive epidermal hyperplasia. They noted that the changes seen here are consistent with clinical impression of venous ulcer with reactive epidermal changes. Multiple deeper sections were examined. A PAS stain for fungal elements was negative. The entire path report will be in the patient's chart. He says he is unable to completely stop working, but he does have the option for light duty. Patient had venous duplex performed and followed back up with Dr. Caed recently who says he will be performing a procedure on July 23. He is to continue with prescribed thigh-high compression stockings by Dr. Cade. I stressed the importance of keeping pressure completely off of the ulcer and how this will impact his healing potential. Patient was instructed to be off his feet as much as possible and to keep the lower extremities elevated while not at work. The importance of compression was also discussed with this patient today. I continue to recommend nutritional supplementation with a high-protein diet at this time in order to help optimize ulcer healing potential. Smoking cessation was stressed again today. Patient also saw Dr. Spencer as a consult as well who offered the patient a surgical debridement with advanced wound graft placement, but patient denied this option. Patient was again informed that he remains at risk for limb loss. All signs and symptoms of local and systemic infection were discussed in great detail with the patient today and he was instructed to go to the emergency room immediately should he notice any of these. All questions were answered to the patient's satisfaction. Patient will follow back up at the wound healing center in 1 week with, but was instructed to follow-up sooner if needed before then.
== END 2019-07-28 23:59 ==
LOC: WC 09:15
PROVIDERS: Referring Provider Podiatrist; Visit Provider Podiatrist
DX: I73.9 Peripheral vascular disease, unspecified (principal); R60.0 Localized edema; Z91.19 Patient's noncompliance with other medical treatment and regimen; L97.822 Non-pressure chronic ulcer of other part of left lower leg with fat layer exposed; I87.2 Venous insufficiency (chronic) (peripheral); M79.605 Pain in left leg; F17.200 Nicotine dependence, unspecified, uncomplicated
CPT/HCPCS: 97597; 97598; 99212; G0463

== ENCOUNTER 2019-08-28 09:15 | Outpatient (RCR) | payer BC, SELFPAY ==
[2019-07-29 00:47] VITALS: BP 167/94; PULSE 90; RESP 18; TEMP 37
[2019-07-31 10:03] VITALS: BP 143/90; PULSE 86; RESP 18; TEMP 35.7; BMI 31.4
--- NOTE | 2019-07-31 13:18 | PN.PCM_ITS ---
(1) Ulcer of left lower extremity with fat layer exposed Status: Chronic Current Visit: No Code(s): L97.922 - Non-pressure chronic ulcer of unspecified part of left lower leg with fat layer exposed (2) PVD (peripheral vascular disease) Status: Acute Current Visit: No Code(s): I73.9 - Peripheral vascular disease, unspecified (3) Chronic venous insufficiency Status: Chronic Current Visit: No Code(s): I87.2 - Venous insufficiency (chronic) (peripheral) (4) Edema, lower extremity Status: Chronic Current Visit: No Code(s): R60.0 - Localized edema (5) Pain of left lower extremity Status: Chronic Current Visit: No Code(s): M79.605 - Pain in left leg (6) Delayed wound healing Status: Chronic Current Visit: No Code(s): T14.8XXD - Other injury of unspecified body region, subsequent encounter (7) Non-compliance with treatment Status: Chronic Current Visit: No Code(s): Z91.19 - Patient's noncompliance with other medical treatment and regimen Type of Wound Date of Service: 07/31/19 Chief Complaint: ulcers to the left lower leg/foot History of Wound: This is a 54-year-old male presents to wound healing center with a long-standing history of chronic venous insufficiency, chronic venous hypertension, lower extremity edema, lower extremity pain, and chronic left lower extremity ulcer. He is seen today as a courtesy visit for Dr. Elkins. 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 He is currently wearing graduated compression stockings which are documented to be 20-30 mmHg compression and these are thigh high. He reports great compliance with use. He is also had previous arterial work-up with no intervention recommended by letter, his vascular surgeon. He denies taking nutritional supplementation. He saw dermatology and had a biopsy of the ulcer site. He also was previously treated by infectious disease for various contaminations and infections. He is not antibiotics at this time nor does he have any redness or odor coming from the wound. He denies fever, chill, nausea, vomiting, loss of appetite. Progress of Wound: Ulcer base appears improved overall today. Patient denies any feelings of nausea, vomiting, fever, chills at this time. - Physical Exam Vital Signs Temp Pulse Resp BP 96.2 F L 86 18 143/90 H 07/31/19 10:03 07/31/19 10:03 07/31/19 10:03 07/31/19 10:03 General: Alert, Oriented x3, Cooperative, No apparent distress Extremities: Capillary Refill Less than 3 Seconds, No Calf Tenderness - Negative Lakisha and Hough signs, Diminished Peripheral Pulses, Edema - Mild lower extremity edema Skin: Ulcer/ Wound - Ulcer to left medial ankle with fat layer exposed. Ulcer site appears improved since his in office procedure with Dr. Cade. The base continues to be a mixture of devitalized subcutaneous tissue, slough, fibrin, granular tissue, biofilm, as well as some surrounding hyperkeratotic tissue. There continues to be no probing to bone, no tracking, no undermining, no surrounding or extending cellulitis, no purulence, no malodor, no increase in warmth to the ulcer site. Moderate to heavy drainage noted. Wound Measurements and Assessment WC - Nurse 1 - General Ulcer Measurement Start: 07/31/19 10:02 Freq: Status: Active Protocol: Activity Type Activity Date Activity User E-Sign Co-Sign Detail Recorded Client Recorded Date Recorded By Document 07/31/19 10:03 TRIPP [id number] 07/31/19 10:05 TRIPP 07/31/19 10:03 Wound Center Nurse 1 [Ulcer Assessment] #9- LLE WOUND CLUSTER -Combined with other wound No -Current Size (cm) - Length 24.5 -Current Size (cm) - Width 10 -Current Size (cm) - Depth 0.3 -Total Square Cm 245.0 -Tunneling No -Undermining/Tunneling No -Circular Undermining No -Exudate Amt Large -Exudate Type Serosanguineous -Wound Margin Fibrotic Scar, Thickened Scar -Granulation Amt Medium (34-66%) -Granulation Quality [place] -Slough/Fibrin Yes -Necrosis Amt Medium (34-66%) -Necrotic Tissue Type Adherent Slough -Structure Exposed N/A -Texture (Ara-wound Skin Appearance) Assessed, Scarring -Moisture (Ara-wound Skin Appearance Assessed ) -Color (Ara-wound Skin Appearance) Assessed -Temperature (Ara-wound Skin No Abnormality Appearance) (Pt Warm) -Tenderness on Palpation (Ara-wound No Skin Appearance) -Ulcer Cleansing Wound Cleanser -Foul Odor after Cleansing No -Anesthetic Used 4% Lidocaine Solution [Edema Assessment] -Lower Limb Edema Present Yes -Left Calf (cm) 38 -Left Ankle (cm) 22.2 WC - Nurse 2 - General Ulcer CM Notes Start: 07/31/19 10:02 Freq: Status: Active Protocol: Activity Type Activity Date Activity User E-Sign Co-Sign Detail Recorded Client Recorded Date Recorded By Document 07/31/19 10:34 AN [id number] 07/31/19 10:39 AN 07/31/19 10:34 Wound Center Nurse 2 [Procedure/Treatment] #9- LLE WOUND CLUSTER -Time 10:34 -Correct Patient Yes -Correct Side, Site, Position Yes -Correct Procedure Yes -Procedure Performed Yes -Type of Procedure Debridement -Clinical Debridement Selective -Post Debridement Size (cm) - Length 24.6 -Post Debridement Size (cm) - Width 10.1 -Post Debridement Size (cm) - Depth 0.3 -Total Square Cm 248.46 -Wound/Ulcer Outcome Not Healed -Ulcer Cleansing Rinsed/ Irrigated with Saline -Foul Odor after Cleansing No -Bioengineered Tissue No -Bleeding Controlled with Pressure -Offloading No -Treatment Response Procedure Tolerated Well [See Physician Procedure note for Specifics] Pain Scale: 0-10 Numeric [Pain] -Is Patient Pain Free? Yes Musculoskeletal: Tenderness - With manipulation in certain areas throughout ulcer site Neurological: Sensory exam intact to light touch and pain - With some altered areas of sensation noted to the lower extremities Psych/Mental Status: Normal Affect, Appropriate Debridement Note Post-Debridement Measurements/Treatment - Nurse 2 - General Ulcer CM Notes Start: 07/31/19 10:02 Freq: Status: Active Protocol: Activity Type Activity Date Activity User E-Sign Co-Sign Detail Recorded Client Recorded Date Recorded By Document 07/31/19 10:34 AN [id number] 07/31/19 10:39 AN 07/31/19 10:34 Wound Center Nurse 2 #9- LLE WOUND CLUSTER -Time 10:34 -Correct Patient Yes -Correct Side, Site, Position Yes -Correct Procedure Yes -Procedure Performed Yes -Type of Procedure Debridement -Clinical Debridement Selective -Post Debridement Size (cm) - Length 24.6 -Post Debridement Size (cm) - Width 10.1 -Post Debridement Size (cm) - Depth 0.3 -Total Square Cm 248.46 -Wound/Ulcer Outcome Not Healed -Ulcer Cleansing Rinsed/ Irrigated with Saline -Foul Odor after Cleansing No -Bioengineered Tissue No -Bleeding Controlled with Pressure -Offloading No -Treatment Response Procedure Tolerated Well Pain Scale: 0-10 Numeric Is Patient Pain Free? Yes Wound debrided: Left lower leg Laterality: Left Type of Debridement: Selective debridement Anesthesia Used: 5% Lidocaine Gel Depth: in the subcutaneous layer Percentage of wound debrided: 100 Instrument Used: 7mm curette Tissue Removed: Devitalized subcutaneous tissue, adherent slough, fibrin, biofilm Severity: Fat Layer Exposed Amount of bleeding with debridement: Mild Bleeding Controlled with: Pressure Patient tolerated procedure well Assessment/Plan Assessment: Chronic left leg ulcer. Venous insufficiency. Leg edema. Delayed healing. Malnutrition suspected. Noncompliance. Continued smoking habits. Bacterial colonization and contamination is suspected Plan: Patient was carefully examined and evaluated again today. Ulcer appears improved this week. Selective debridement was performed as noted in the clinical panel. The base was dressed with Aquacel Ag, followed by adaptic, and a dry sterile absorptive dressing. Patient is to continue with compression stockings as prescribed by Dr. Cade. Patient has been noncompliant with wearing compression as instructed. Three-view x-rays of the left foot and ankle were also ordered previously and they did not demonstrate any acute osseous abnormalities according to the report. Full report is in patient's chart. Patient had MRI taken and impression was read by radiologist is showing no signs of osteomyelitis, however there was a large venous varicosity seen within the subcutaneous tissue in the region of ulcer site. Full detailed report is in the patient's chart. Patient unable to tolerate almost every other dressing that has been tried to this date other than hydrofera blue and Aquacel Ag. The patient was referred to dermatology for a consult and biopsy of ulcer site to gain further information. Biopsy results showed diagnosis as read by the lab: stasis dermatitis with an overlying cutaneous ulceration and reactive epidermal hyperplasia. They noted that the changes seen here are consistent with clinical impression of venous ulcer with reactive epidermal changes. Multiple deeper sections were examined. A PAS stain for fungal elements was negative. The entire path report will be in the patient's chart. He says he is unable to completely stop working, but he does have the option for light duty. Patient had an injection procedure performed last week with Dr. Cade, and states that he will be having another one next Sunday. He is to continue with prescribed thigh-high compression stockings by Dr. Cade. I stressed the importance of keeping pressure completely off of the ulcer and how this will impact his healing potential. Patient was instructed to be off his feet as much as possible and to keep the lower extremities elevated while not at work. The importance of compression was also discussed with this patient today. I continue to recommend nutritional supplementation with a high-protein diet at this time in order to help optimize ulcer healing potential. Smoking cessation was stressed again today. Patient also saw Dr. Spencer as a consult as well who offered the patient a surgical debridement with advanced wound graft placement, but patient denied this option. Patient was again informed that he remains at risk for limb loss. All signs and symptoms of local and systemic infection were discussed in great detail with the patient today and he was instructed to go to the emergency room immediately should he notice any of these. All questions were answered to the patient's satisfaction. Patient will follow back up at the wound healing center in 1 week with, but was instructed to follow-up sooner if needed before then.
[2019-08-14 09:55] VITALS: BP 145/79; PULSE 79; RESP 18; TEMP 36.9; BMI 31.4
--- NOTE | 2019-08-14 11:24 | PCM.WC.PN ---
(1) Ulcer of left lower extremity with fat layer exposed Status: Chronic Current Visit: No Code(s): L97.922 - Non-pressure chronic ulcer of unspecified part of left lower leg with fat layer exposed (2) PVD (peripheral vascular disease) Status: Acute Current Visit: No Code(s): I73.9 - Peripheral vascular disease, unspecified (3) Chronic venous insufficiency Status: Chronic Current Visit: No Code(s): I87.2 - Venous insufficiency (chronic) (peripheral) (4) Edema, lower extremity Status: Chronic Current Visit: No Code(s): R60.0 - Localized edema (5) Pain of left lower extremity Status: Chronic Current Visit: No Code(s): M79.605 - Pain in left leg (6) Delayed wound healing Status: Chronic Current Visit: No Code(s): T14.8XXD - Other injury of unspecified body region, subsequent encounter (7) Non-compliance with treatment Status: Chronic Current Visit: No Code(s): Z91.19 - Patient's noncompliance with other medical treatment and regimen Type of Wound Date of Service: 08/14/19 Chief Complaint: ulcers to the left lower leg/foot History of Wound: This is a 54-year-old male presents to wound healing center with a long-standing history of chronic venous insufficiency, chronic venous hypertension, lower extremity edema, lower extremity pain, and chronic left lower extremity ulcer. He is seen today as a courtesy visit for Dr. Elkins. The patient has previously undergone endovenous laser ablation of the left and right great saphenous vein, the small saphenous vein, the left accessory saphenous vein, and an incompetent left calf internet ecommerce specialist vein located 15 cm proximal to the left medial malleolus. He is currently wearing graduated compression stockings which are documented to be 20-30 mmHg compression and these are thigh high. He reports great compliance with use. He is also had previous arterial work-up with no intervention recommended by letter, his vascular surgeon. He denies taking nutritional supplementation. He saw dermatology and had a biopsy of the ulcer site. He also was previously treated by infectious disease for various contaminations and infections. He is not antibiotics at this time nor does he have any redness or odor coming from the wound. He denies fever, chill, nausea, vomiting, loss of appetite. Progress of Wound: Ulcer site shows continued improvement. Patient denies any feelings of nausea, vomiting, fever, chills at this time. - Physical Exam Vital Signs Temp Pulse Resp BP 98.4 F 79 18 145/79 H 08/14/19 09:55 10 09:55 10 09:55 08/14/19 09:55 General: Alert, Oriented x3, Cooperative, No apparent distress Extremities: Capillary Refill Less than 3 Seconds, No Calf Tenderness - Negative Lakisha and Hough signs, Diminished Peripheral Pulses, Edema - Mild lower extremity edema Skin: Ulcer/ Wound - Ulcer to left medial ankle with fat layer exposed. Ulcer site appears improved since his second in office procedure with Dr. Cade. The base continues to be a mixture of devitalized subcutaneous tissue, slough, fibrin, granular tissue, biofilm, as well as some surrounding hyperkeratotic tissue. There continues to be no probing to bone, no tracking, no undermining, no surrounding or extending cellulitis, no purulence, no malodor, no increase in warmth to the ulcer site. Moderate to heavy drainage noted. Wound Measurements and Assessment WC - Nurse 1 - General Ulcer Measurement Start: 07/31/19 10:02 Freq: Status: Active Protocol: Activity Type Activity Date Activity User E-Sign Co-Sign Detail Recorded Client Recorded Date Recorded By Document 08/14/19 09:55 [id number] 08/14/19 09:56 RB 08/14/19 09:55 Wound Center Nurse 1 [Ulcer Assessment] #9- LLE WOUND CLUSTER -Combined with other wound No -Current Size (cm) - Length 25.3 -Current Size (cm) - Width 10 -Current Size (cm) - Depth 0.3 -Total Square Cm 253.0 -Tunneling No -Undermining/Tunneling No -Circular Undermining No -Exudate Amt Large -Exudate Type Serosanguineous -Wound Margin Fibrotic Scar, Thickened Scar -Granulation Amt Medium (34-66%) -Granulation Quality [place],Red -Slough/Fibrin Yes -Necrosis Amt Small (1-33%) -Necrotic Tissue Type Adherent Slough -Structure Exposed N/A -Texture (Ara-wound Skin Appearance) Scarring -Moisture (Ara-wound Skin Appearance Dry/Scaly ) -Color (Ara-wound Skin Appearance) Hemosiderin Staining -Temperature (Ara-wound Skin No Abnormality Appearance) (Pt Warm) -Tenderness on Palpation (Ara-wound No Skin Appearance) -Ulcer Cleansing Wound Cleanser -Foul Odor after Cleansing No -Anesthetic Used 4% Lidocaine Solution [Edema Assessment] -Lower Limb Edema Present Yes -Left Calf (cm) 36.5 -Left Ankle (cm) 24.3 KIMBERLY - Nurse 2 - General Ulcer CM Notes Start: 07/31/19 10:02 Freq: Status: Active Protocol: Activity Type Activity Date Activity User E-Sign Co-Sign Detail Recorded Client Recorded Date Recorded By Document 08/14/19 10:24 AN [id number] 08/14/19 10:31 AN 08/14/19 10:24 Wound Center Nurse 2 [Procedure/Treatment] #9- LLE WOUND CLUSTER -Time 10:27 -Correct Patient Yes -Correct Side, Site, Position Yes -Correct Procedure Yes -Procedure Performed Yes -Type of Procedure Debridement -Clinical Debridement Subcutaneous -Post Debridement Size (cm) - Length 26.3 -Post Debridement Size (cm) - Width 10.1 -Post Debridement Size (cm) - Depth 0.3 -Total Square Cm 265.63 -Wound/Ulcer Outcome Not Healed -Ulcer Cleansing Rinsed/ Irrigated with Saline -Foul Odor after Cleansing No -Bioengineered Tissue No -Bleeding Controlled with Pressure -Offloading No -Treatment Response Procedure Tolerated Well [See Physician Procedure note for Specifics] Pain Scale: 0-10 Numeric [Pain] -Is Patient Pain Free? Yes Musculoskeletal: Tenderness - With manipulation and some areas in the ulcer site Neurological: Sensory exam intact to light touch and pain - With some altered areas of sensation noted to the lower extremities Psych/Mental Status: Normal Affect, Appropriate Debridement Note Post-Debridement Measurements/Treatment - Nurse 2 - General Ulcer CM Notes Start: 07/31/19 10:02 Freq: Status: Active Protocol: Activity Type Activity Date Activity User E-Sign Co-Sign Detail Recorded Client Recorded Date Recorded By Document 07/31/19 10:34 AN [id number] 07/31/19 10:39 AN Document 08/14/19 10:24 AN [id number] 08/14/19 10:31 AN 07/31/19 08/14/19 10:34 10:24 Wound Center Nurse 2 #9- LLE WOUND CLUSTER -Time 10:34 10:27 -Correct Patient Yes Yes -Correct Side, Site, Position Yes Yes -Correct Procedure Yes Yes -Procedure Performed Yes Yes -Type of Procedure Debridement Debridement -Clinical Debridement Selective Subcutaneous -Post Debridement Size (cm) - Length 24.6 26.3 -Post Debridement Size (cm) - Width 10.1 10.1 -Post Debridement Size (cm) - Depth 0.3 0.3 -Total Square Cm 248.46 265.63 -Wound/Ulcer Outcome Not Healed Not Healed -Ulcer Cleansing Rinsed/ Rinsed/ Irrigated with Irrigated with Saline Saline -Foul Odor after Cleansing No No -Bioengineered Tissue No No -Bleeding Controlled with Pressure Pressure -Offloading No No -Treatment Response Procedure Procedure Tolerated Well Tolerated Well Pain Scale: 0-10 Numeric Is Patient Pain Free? Yes Yes Wound debrided: Left lower leg Laterality: Left Type of Debridement: Selective debridement Anesthesia Used: 5% Lidocaine Gel Depth: in the subcutaneous layer Percentage of wound debrided: 100 Instrument Used: 7mm curette Tissue Removed: Devitalized subcutaneous tissue, adherent slough, fibrin, biofilm Severity: Fat Layer Exposed Amount of bleeding with debridement: Mild Bleeding Controlled with: Pressure Patient tolerated procedure well Assessment/Plan Assessment: Chronic left leg ulcer. Venous insufficiency. Leg edema. Delayed healing. Malnutrition suspected. Noncompliance. Continued smoking habits. Bacterial colonization and contamination is suspected Plan: Patient was carefully examined and evaluated again today. Ulcer appears improved a great deal again this week. Increased amount of skin bridging taking place. Selective debridement was performed as noted in the clinical panel. The base was dressed with Aquacel Ag, followed by adaptic, and a dry sterile absorptive dressing. Patient is to continue with compression stockings as prescribed by Dr. Cade. Patient has been noncompliant with wearing compression as instructed. Three-view x-rays of the left foot and ankle were also ordered previously and they did not demonstrate any acute osseous abnormalities according to the report. Full report is in patient's chart. Patient had MRI taken and impression was read by radiologist is showing no signs of osteomyelitis, however there was a large venous varicosity seen within the subcutaneous tissue in the region of ulcer site. Full detailed report is in the patient's chart. Patient unable to tolerate almost every other dressing that has been tried to this date other than hydrofera blue and Aquacel Ag. The patient was referred to dermatology for a consult and biopsy of ulcer site to gain further information. Biopsy results showed diagnosis as read by the lab: stasis dermatitis with an overlying cutaneous ulceration and reactive epidermal hyperplasia. They noted that the changes seen here are consistent with clinical impression of venous ulcer with reactive epidermal changes. Multiple deeper sections were examined. A PAS stain for fungal elements was negative. The entire path report will be in the patient's chart. He says he is unable to completely stop working, but he does have the option for light duty. Patient had a second injection procedure performed last week with Dr. Cade. He is to continue with prescribed thigh-high compression stockings by Dr. Cade. I stressed the importance of keeping pressure completely off of the ulcer and how this will impact his healing potential. Patient was instructed to be off his feet as much as possible and to keep the lower extremities elevated while not at work. The importance of compression was also discussed with this patient today. I continue to recommend nutritional supplementation with a high-protein diet at this time in order to help optimize ulcer healing potential. Smoking cessation was stressed again today. Patient also saw Dr. Spencer as a consult as well who offered the patient a surgical debridement with advanced wound graft placement, but patient denied this option. Patient was again informed that he remains at risk for limb loss. All signs and symptoms of local and systemic infection were discussed in great detail with the patient today and he was instructed to go to the emergency room immediately should he notice any of these. All questions were answered to the patient's satisfaction. Patient will follow back up at the wound healing center in 1 week with, but was instructed to follow-up sooner if needed before then.
[2019-08-28 09:22] VITALS: BP 148/87; PULSE 92; RESP 18; TEMP 37; BMI 31.4
--- NOTE | 2019-08-28 10:58 | PN.PCM_ITS ---
(1) Ulcer of left lower extremity with fat layer exposed Status: Chronic Current Visit: No Code(s): L97.922 - Non-pressure chronic ulcer of unspecified part of left lower leg with fat layer exposed (2) PVD (peripheral vascular disease) Status: Acute Current Visit: No Code(s): I73.9 - Peripheral vascular disease, unspecified (3) Chronic venous insufficiency Status: Chronic Current Visit: No Code(s): I87.2 - Venous insufficiency (chronic) (peripheral) (4) Edema, lower extremity Status: Chronic Current Visit: No Code(s): R60.0 - Localized edema (5) Pain of left lower extremity Status: Chronic Current Visit: No Code(s): M79.605 - Pain in left leg (6) Delayed wound healing Status: Chronic Current Visit: No Code(s): T14.8XXD - Other injury of unspecified body region, subsequent encounter (7) Non-compliance with treatment Status: Chronic Current Visit: No Code(s): Z91.19 - Patient's noncompliance with other medical treatment and regimen Type of Wound Date of Service: 08/28/19 Chief Complaint: ulcers to the left lower leg/foot History of Wound: This is a 54-year-old male presents to wound healing center with a long-standing history of chronic venous insufficiency, chronic venous hypertension, lower extremity edema, lower extremity pain, and chronic left lower extremity ulcer. He is seen today as a courtesy visit for Dr. Elkins. The patient has previously undergone endovenous laser ablation of the left and right great saphenous vein, the small saphenous vein, the left accessory saphenous vein, and an incompetent left calf armed security guard vein located 15 cm proximal to the left medial malleolus. He is currently wearing graduated compression stockings which are documented to be 20-30 mmHg compression and these are thigh high. He reports great compliance with use. He is also had previous arterial work-up with no intervention recommended by letter, his vascular surgeon. He denies taking nutritional supplementation. He saw dermatology and had a biopsy of the ulcer site. He also was previously treated by infectious disease for various contaminations and infections. He is not antibiotics at this time nor does he have any redness or odor coming from the wound. He denies fever, chill, nausea, vomiting, loss of appetite. Progress of Wound: Ulcer continues to improve and shoe increased skin bridging. Patient denies any feelings of nausea, vomiting, fever, chills at this time. - Physical Exam Vital Signs Temp Pulse Resp BP 98.6 F 92 18 148/87 H 08/28/19 09:22 08/28/19 09:22 08/28/19 09:22 08/28/19 09:22 General: Alert, Oriented x3, Cooperative, No apparent distress Extremities: Capillary Refill Less than 3 Seconds, No Calf Tenderness - Negative Lakisha and Hough signs, Diminished Peripheral Pulses, Edema - Mild lower extremity edema Skin: Ulcer/ Wound - Ulcer to left medial ankle with fat layer exposed. Ulcer site continues to improve with continued increasing amount of skin bridging noted. The base continues to be a mixture of devitalized subcutaneous tissue, slough, fibrin, granular tissue, biofilm, as well as some surrounding hyperkeratotic tissue. There continues to be no probing to bone, no tracking, no undermining, no surrounding or extending cellulitis, no purulence, no malodor, no increase in warmth to the ulcer site. Moderate to heavy drainage noted. Wound Measurements and Assessment WC - Nurse 1 - General Ulcer Measurement Start: 07/31/19 10:02 Freq: Status: Active Protocol: Activity Type Activity Date Activity User E-Sign Co-Sign Detail Recorded Client Recorded Date Recorded By Document 08/28/19 09:22 DV [id number] 08/28/19 09:27 DV 08/28/19 09:22 Wound Center Nurse 1 [Ulcer Assessment] #9- LLE WOUND CLUSTER -Combined with other wound No -Current Size (cm) - Length 23.8 -Current Size (cm) - Width 10.5 -Current Size (cm) - Depth 0.2 -Total Square Cm 249.90 -Photo Taken No -Epithelialization Small 1-33% -Tunneling No -Undermining/Tunneling No -Circular Undermining No -Classification - Thickness Full Thickness without Exposed Support Structure -Exudate Amt Large -Exudate Type Serosanguineous -Wound Margin Flat & Intact -Granulation Amt Large (67-100%) -Granulation Quality Red -Slough/Fibrin Yes -Necrosis Amt Large (67-100%) -Necrotic Tissue Type Adherent Slough -Structure Exposed None/Limited to Skin Breakdown -Texture (Ara-wound Skin Appearance) Assessed, Localized Edema ,Scarring -Moisture (Ara-wound Skin Appearance Assessed, ) Weeping -Color (Ara-wound Skin Appearance) No Abnormality, Assessed -Temperature (Ara-wound Skin No Abnormality Appearance) (Pt Warm) -Tenderness on Palpation (Aar-wound No Skin Appearance) -Ulcer Cleansing Rinsed/ Irrigated with Saline -Foul Odor after Cleansing No -Anesthetic Used 4% Lidocaine Solution WC - Nurse 2 - General Ulcer CM Notes Start: 07/31/19 10:02 Freq: Status: Active Protocol: Activity Type Activity Date Activity User E-Sign Co-Sign Detail Recorded Client Recorded Date Recorded By Document 08/28/19 09:51 AN [id number] 08/28/19 09:53 AN 08/28/19 09:51 Wound Center Nurse 2 [Procedure/Treatment] -Time 09:51 -Correct Patient Yes -Correct Side, Site, Position Yes -Correct Procedure Yes -Procedure Performed Yes -Type of Procedure Debridement -Clinical Debridement Selective -Post Debridement Size (cm) - Length 23.9 -Post Debridement Size (cm) - Width 10.6 -Post Debridement Size (cm) - Depth 0.2 -Total Square Cm 253.34 -Wound/Ulcer Outcome Not Healed -Ulcer Cleansing Rinsed/ Irrigated with Saline -Foul Odor after Cleansing No -Bioengineered Tissue No -Bleeding Controlled with Pressure -Offloading No -Treatment Response Procedure Tolerated Well [See Physician Procedure note for Specifics] Pain Scale: 0-10 Numeric [Pain] -Is Patient Pain Free? Yes Musculoskeletal: Tenderness - With manipulation of certain areas of the ulcer site Neurological: Sensory exam intact to light touch and pain - With some altered areas of sensation noted to the lower extremities Psych/Mental Status: Normal Affect, Appropriate Debridement Note Post-Debridement Measurements/Treatment - Nurse 2 - General Ulcer CM Notes Start: 07/31/19 10:02 Freq: Status: Active Protocol: Activity Type Activity Date Activity User E-Sign Co-Sign Detail Recorded Client Recorded Date Recorded By Document 07/31/19 10:34 AN [id number] 07/31/19 10:39 AN Document 08/14/19 10:24 AN [id number] 08/14/19 10:31 AN Document 08/28/19 09:51 AN [id number] 08/28/19 09:53 AN 07/31/19 08/14/19 08/28/19 10:34 10:24 09:51 Wound Center Nurse 2 #9- LLE WOUND CLUSTER -Time 10:34 10:27 09:51 -Correct Patient Yes Yes Yes -Correct Side, Site, Position Yes Yes Yes -Correct Procedure Yes Yes Yes -Procedure Performed Yes Yes Yes -Type of Procedure Debridement Debridement Debridement -Clinical Debridement Selective Subcutaneous Selective -Post Debridement Size (cm) - Length 24.6 26.3 23.9 -Post Debridement Size (cm) - Width 10.1 10.1 10.6 -Post Debridement Size (cm) - Depth 0.3 0.3 0.2 -Total Square Cm 248.46 265.63 253.34 -Wound/Ulcer Outcome Not Healed Not Healed Not Healed -Ulcer Cleansing Rinsed/ Rinsed/ Rinsed/ Irrigated with Irrigated with Irrigated with Saline Saline Saline -Foul Odor after Cleansing No No No -Bioengineered Tissue No No No -Bleeding Controlled with Pressure Pressure Pressure -Offloading No No No -Treatment Response Procedure Procedure Procedure Tolerated Well Tolerated Well Tolerated Well Pain Scale: 0-10 Numeric Is Patient Pain Free? Yes Yes Yes Wound debrided: Left lower leg Laterality: Left Type of Debridement: Selective debridement Anesthesia Used: 5% Lidocaine Gel Depth: in the subcutaneous layer Percentage of wound debrided: 100 Instrument Used: 7mm curette Tissue Removed: Devitalized subcutaneous tissue, adherent slough, fibrin, biofilm Severity: Fat Layer Exposed Amount of bleeding with debridement: Mild Bleeding Controlled with: Pressure Patient tolerated procedure well Assessment/Plan Assessment: Chronic left leg ulcer. Venous insufficiency. Leg edema. Delayed healing. Malnutrition suspected. Noncompliance. Continued smoking habits. Ba cterial colonization and contamination is suspected Plan: Patient was carefully examined and evaluated again today. Patient's ulcer site continues to show good improvement with continued increasing amount of skin bridging appreciated. Another selective debridement was performed as noted in the clinical panel. The base was dressed with Aquacel Ag, followed by adaptic, and a dry sterile absorptive dressing. Patient is to continue with compression stockings as prescribed by Dr. Cade. Patient has been noncompliant with wearing compression as instructed. Patient's most recent three-view x-rays of the left foot and ankle did not demonstrate any acute osseous abnormalities according to the report. Full report is in patient's chart. Patient had MRI taken previously as well and impression was read by radiologist is showing no signs of osteomyelitis, however there was a large venous varicosity seen within the subcutaneous tissue in the region of ulcer site. Full detailed report is in the patient's chart. Patient unable to tolerate almost every other dressing that has been tried to this date other than hydrofera blue and Aquacel Ag. The patient was referred to dermatology for a consult and biopsy of ulcer site to gain further information. Biopsy results showed diagnosis as read by the lab: stasis dermatitis with an overlying cutaneous ulceration and reactive epidermal hyperplasia. They noted that the changes seen here are consistent with clinical impression of venous ulcer with reactive epidermal changes. Multiple deeper sections were examined. A PAS stain for fungal elements was negative. The entire path report will be in the patient's chart. He says he is unable to completely stop working, but he does have the option for light duty. Patient had a second injection procedure performed last week with Dr. Cade. He is to continue with prescribed thigh- high compression stockings by Dr. Cade. I stressed the importance of keeping pressure completely off of the ulcer and how this will impact his healing potential. Patient was instructed to be off his feet as much as possible and to keep the lower extremities elevated while not at work. The importance of compression was also discussed with this patient today. I continue to recommend nutritional supplementation with a high-protein diet at this time in order to help optimize ulcer healing potential. The patient continues to state that he has stopped smoking since his most recent vascular procedure. Patient also saw Dr. Spencer as a consult in the past as well who offered the patient a surgical debridement with advanced wound graft placement, but patient denied this option. Patient was again informed that he remains at risk for limb loss. All signs and symptoms of local and systemic infection were discussed in great detail with the patient today and he was instructed to go to the emergency room immediately should he notice any of these. All questions were answered to the patient's satisfaction. Patient will follow back up at the wound healing center in 1 week with, but was instructed to follow-up sooner if needed before then.
== END 2019-08-28 23:59 ==
LOC: WC 09:15
PROVIDERS: Referring Provider Podiatrist; Visit Provider Podiatrist
DX: I87.312 Chronic venous hypertension (idiopathic) with ulcer of left lower extremity (principal); L97.822 Non-pressure chronic ulcer of other part of left lower leg with fat layer exposed; M79.605 Pain in left leg; R60.0 Localized edema; Z91.19 Patient's noncompliance with other medical treatment and regimen
CPT/HCPCS: 97597; 97598

== ENCOUNTER 2019-09-18 09:30 | Outpatient (RCR) | payer BC, SELFPAY ==
[2019-08-29 00:47] VITALS: BP 148/87; PULSE 92; RESP 18; TEMP 37
[2019-09-04 09:33] VITALS: BP 154/90; PULSE 97; RESP 16; TEMP 36.6; BMI 31.4
--- NOTE | 2019-09-04 10:05 | PCM.WC.PN ---
(1) Ulcer of left lower extremity with fat layer exposed Status: Chronic Current Visit: No Code(s): L97.922 - Non-pressure chronic ulcer of unspecified part of left lower leg with fat layer exposed (2) PVD (peripheral vascular disease) Status: Acute Current Visit: No Code(s): I73.9 - Peripheral vascular disease, unspecified (3) Chronic venous insufficiency Status: Chronic Current Visit: No Code(s): I87.2 - Venous insufficiency (chronic) (peripheral) (4) Edema, lower extremity Status: Chronic Current Visit: No Code(s): R60.0 - Localized edema (5) Pain of left lower extremity Status: Chronic Current Visit: No Code(s): M79.605 - Pain in left leg (6) Delayed wound healing Status: Chronic Current Visit: No Code(s): T14.8XXD - Other injury of unspecified body region, subsequent encounter (7) Non-compliance with treatment Status: Chronic Current Visit: No Code(s): Z91.19 - Patient's noncompliance with other medical treatment and regimen Type of Wound Date of Service: 09/04/19 Chief Complaint: ulcers to the left lower leg/foot History of Wound: This is a 54-year-old male presents to wound healing center with a long-standing history of chronic venous insufficiency, chronic venous hypertension, lower extremity edema, lower extremity pain, and chronic left lower extremity ulcer. He is seen today as a courtesy visit for Dr. Elkins. The patient has previously undergone endovenous laser ablation of the left and right great saphenous vein, the small saphenous vein, the left accessory saphenous vein, and an incompetent left calf uniform cap operator vein located 15 cm proximal to the left medial malleolus. He is currently wearing graduated compression stockings which are documented to be 20-30 mmHg compression and these are thigh high. He reports great compliance with use. He is also had previous arterial work-up with no intervention recommended by letter, his vascular surgeon. He denies taking nutritional supplementation. He saw dermatology and had a biopsy of the ulcer site. He also was previously treated by infectious disease for various contaminations and infections. He is not antibiotics at this time nor does he have any redness or odor coming from the wound. He denies fever, chill, nausea, vomiting, loss of appetite. Progress of Wound: Ulcer site improving. Patient denies any feelings of nausea, vomiting, fever, chills at this time. - Physical Exam Vital Signs Temp Pulse Resp BP 97.8 F 97 16 154/90 H 09/04/19 09:33 09/04/19 09:33 09/04/19 09:33 09/04/19 09:33 General: Alert, Oriented x3, Cooperative, No apparent distress Extremities: Capillary Refill Less than 3 Seconds, No Calf Tenderness - Negative Lakisha and Hough signs, Diminished Peripheral Pulses, Edema - Mild lower extremity edema Skin: Ulcer/ Wound - Ulcer to left medial ankle with fat layer exposed. Continued improvement noted. The base continues to be a mixture of devitalized subcutaneous tissue, slough, fibrin, granular tissue, biofilm, as well as some surrounding hyperkeratotic tissue. There continues to be no probing to bone, no tracking, no undermining, no surrounding or extending cellulitis, no purulence, no malodor, no increase in warmth to the ulcer site. Moderate to heavy drainage noted. Wound Measurements and Assessment WC - Nurse 1 - General Ulcer Measurement Start: 09/04/19 09:33 Freq: Status: Active Protocol: Activity Type Activity Date Activity User E-Sign Co-Sign Detail Recorded Client Recorded Date Recorded By Document 09/04/19 09:33 [id number] 09/04/19 09:39 09/04/19 09:33 Wound Center Nurse 1 [Ulcer Assessment] #9- LLE WOUND CLUSTER -Combined with other wound No -Current Size (cm) - Length 23.6 -Current Size (cm) - Width 10.8 -Current Size (cm) - Depth 0.3 -Total Square Cm 254.88 -Photo Taken No -Epithelialization Small 1-33% -Tunneling No -Undermining/Tunneling No -Circular Undermining No -Exudate Amt Large -Exudate Type Serosanguineous -Wound Margin Distinct, Outline Attached -Granulation Amt Large (67-100%) -Granulation Quality Red -Slough/Fibrin Yes -Necrosis Amt None Present (0 %) -Necrotic Tissue Type Adherent Slough -Texture (Ara-wound Skin Appearance) Scarring -Moisture (Ara-wound Skin Appearance No Abnormality, ) Assessed -Color (Ara-wound Skin Appearance) No Abnormality, Assessed -Temperature (Ara-wound Skin No Abnormality Appearance) (Pt Warm) -Tenderness on Palpation (Ara-wound No Skin Appearance) -Ulcer Cleansing Rinsed/ Irrigated with Saline -Foul Odor after Cleansing No -Anesthetic Used 4% Lidocaine Solution [Edema Assessment] -Lower Limb Edema Present NA Musculoskeletal: Tenderness - With manipulation of certain areas of the ulcer site Neurological: Sensory exam intact to light touch and pain - With some altered areas of sensation Psych/Mental Status: Normal Affect - noted to bilateral lower extremities, Appropriate Debridement Note Wound debrided: Left lower leg Laterality: Left Type of Debridement: Selective debridement Anesthesia Used: 5% Lidocaine Gel Depth: in the subcutaneous layer Percentage of wound debrided: 100 Instrument Used: 7mm curette Tissue Removed: Devitalized subcutaneous tissue, adherent slough, fibrin, biofilm Severity: Fat Layer Exposed Amount of bleeding with debridement: Mild Bleeding Controlled with: Pressure Patient tolerated procedure well Assessment/Plan Assessment: Chronic left leg ulcer. Venous insufficiency. Leg edema. Delayed healing. Malnutrition suspected. Noncompliance. Continued smoking habits. Bacterial colonization and contamination is suspected Plan: Patient was carefully examined and evaluated again today. Continued slow improvement appreciated patient's ulcer site. Another selective debridement was performed as noted in the clinical panel. The base was dressed with Aquacel Ag, followed by adaptic, and a dry sterile absorptive dressing. Patient is to continue with compression stockings as prescribed by Dr. Cade. Patient has been noncompliant with wearing compression as instructed. Patient had MRI taken previously as well and impression was read by radiologist is showing no signs of osteomyelitis, however there was a large venous varicosity seen within the subcutaneous tissue in the region of ulcer site. Full detailed report is in the patient's chart. Patient unable to tolerate almost every other dressing that has been tried to this date other than hydrofera blue and Aquacel Ag. The patient was referred to dermatology for a consult and biopsy of ulcer site to gain further information in the past as well. Biopsy results showed diagnosis as read by the lab: stasis dermatitis with an overlying cutaneous ulceration and reactive epidermal hyperplasia. They noted that the changes seen here are consistent with clinical impression of venous ulcer with reactive epidermal changes. Multiple deeper sections were examined. A PAS stain for fungal elements was negative. The entire path report will be in the patient's chart. He says he is unable to completely stop working, but he does have the option for light duty. Patient had a second injection procedure performed last week with Dr. Cade. He is to continue with prescribed thigh-high compression stockings by Dr. Cade. I stressed the importance of keeping pressure completely off of the ulcer and how this will impact his healing potential. Patient was instructed to be off his feet as much as possible and to keep the lower extremities elevated while not at work. The importance of compression was also discussed with this patient today. I continue to recommend nutritional supplementation with a high-protein diet at this time in order to help optimize ulcer healing potential. The patient continues to state that he has stopped smoking since his most recent vascular procedure. Patient also saw Dr. Spencer as a consult in the past as well who offered the patient a surgical debridement with advanced wound graft placement, but patient denied this option. Patient was again informed that he remains at risk for limb loss. All signs and symptoms of local and systemic infection were discussed in great detail with the patient today and he was instructed to go to the emergency room immediately should he notice any of these. All questions were answered to the patient's satisfaction. Patient will follow back up at the wound healing center in 1 week with, but was instructed to follow-up sooner if needed before then.
[2019-09-11 09:15] VITALS: BP 158/98; PULSE 94; RESP 18; TEMP 36.3; BMI 31.4
--- NOTE | 2019-09-11 10:40 | PCM.WC.PN ---
(1) Ulcer of left lower extremity with fat layer exposed Status: Chronic Current Visit: No Code(s): L97.922 - Non-pressure chronic ulcer of unspecified part of left lower leg with fat layer exposed (2) PVD (peripheral vascular disease) Status: Acute Current Visit: No Code(s): I73.9 - Peripheral vascular disease, unspecified (3) Chronic venous insufficiency Status: Chronic Current Visit: No Code(s): I87.2 - Venous insufficiency (chronic) (peripheral) (4) Edema, lower extremity Status: Chronic Current Visit: No Code(s): R60.0 - Localized edema (5) Pain of left lower extremity Status: Chronic Current Visit: No Code(s): M79.605 - Pain in left leg (6) Delayed wound healing Status: Chronic Current Visit: No Code(s): T14.8XXD - Other injury of unspecified body region, subsequent encounter (7) Non-compliance with treatment Status: Chronic Current Visit: No Code(s): Z91.19 - Patient's noncompliance with other medical treatment and regimen Type of Wound Date of Service: 09/11/19 Chief Complaint: ulcers to the left lower leg/foot History of Wound: This is a 54-year-old male presents to wound healing center with a long-standing history of chronic venous insufficiency, chronic venous hypertension, lower extremity edema, lower extremity pain, and chronic left lower extremity ulcer. He is seen today as a courtesy visit for Dr. Elkins. 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 He is currently wearing graduated compression stockings which are documented to be 20-30 mmHg compression and these are thigh high. He reports great compliance with use. He is also had previous arterial work-up with no intervention recommended by letter, his vascular surgeon. He denies taking nutritional supplementation. He saw dermatology and had a biopsy of the ulcer site. He also was previously treated by infectious disease for various contaminations and infections. He is not antibiotics at this time nor does he have any redness or odor coming from the wound. He denies fever, chill, nausea, vomiting, loss of appetite. Progress of Wound: Improvement. Patient denies any feelings of nausea, vomiting, fever, chills at this time. - Physical Exam Vital Signs Temp Pulse Resp BP 97.3 F L 94 18 158/98 H 09/11/19 09:15 09/11/19 09:15 09/11/19 09:15 09/11/19 09:15 General: Alert, Oriented x3, Cooperative, No apparent distress Extremities: Capillary Refill Less than 3 Seconds, No Calf Tenderness - Negative Lakisha and Hough signs, Diminished Peripheral Pulses, Edema - Mild lower extremity edema Skin: Ulcer/ Wound - Ulcer to left medial ankle with fat layer exposed. Slow improvement noted. The base continues to be a mixture of devitalized subcutaneous tissue, slough, fibrin, increasing granular tissue, biofilm, as well as some surrounding hyperkeratotic tissue. There continues to be no probing to bone, no tracking, no undermining, no surrounding or extending cellulitis, no purulence, no malodor, no increase in warmth to the ulcer site. Moderate to heavy drainage noted. Wound Measurements and Assessment WC - Nurse 1 - General Ulcer Measurement Start: 09/04/19 09:33 Freq: Status: Active Protocol: Activity Type Activity Date Activity User E-Sign Co-Sign Detail Recorded Client Recorded Date Recorded By Document 09/11/19 09:15 [email or web address] [id number] 09/11/19 09:22 RB 09/11/19 09:15 Wound Center Nurse 1 [Ulcer Assessment] #9- LLE WOUND CLUSTER -Combined with other wound No -Current Size (cm) - Length 23.5 -Current Size (cm) - Width 10 -Current Size (cm) - Depth 0.3 -Total Square Cm 235.0 [Edema Assessment] -Lower Limb Edema Present Yes -Left Calf (cm) 34.5 -Left Ankle (cm) 24.7 WC - Nurse 2 - General Ulcer CM Notes Start: 09/04/19 09:33 Freq: Status: Active Protocol: Activity Type Activity Date Activity User E-Sign Co-Sign Detail Recorded Client Recorded Date Recorded By Document 09/11/19 09:54 [id number] 09/11/19 10:00 09/11/19 09:54 Wound Center Nurse 2 [Procedure/Treatment] #9- LLE WOUND CLUSTER -Time 09:56 -Correct Patient Yes -Correct Side, Site, Position Yes -Correct Procedure Yes -Procedure Performed Yes -Type of Procedure Debridement -Clinical Debridement Subcutaneous -Post Debridement Size (cm) - Length 22 -Post Debridement Size (cm) - Width 9 -Post Debridement Size (cm) - Depth 0.2 -Total Square Cm 198 -Wound/Ulcer Outcome Not Healed -Ulcer Cleansing Rinsed/ Irrigated with Saline -Foul Odor after Cleansing No -Bioengineered Tissue No -Bleeding Controlled with Pressure -Offloading No -Treatment Response Procedure Tolerated Well [See Physician Procedure note for Specifics] Musculoskeletal: Tenderness - With some areas of manipulation throughout the ulcer site Neurological: Sensory exam intact to light touch and pain - With areas of altered decreased sensation to lower extremities Psych/Mental Status: Normal Affect, Appropriate Debridement Note Post-Debridement Measurements/Treatment WC - Nurse 2 - General Ulcer CM Notes Start: 09/04/19 09:33 Freq: Status: Active Protocol: Activity Type Activity Date Activity User E-Sign Co-Sign Detail Recorded Client Recorded Date Recorded By Document 09/04/19 10:12 [id number] 09/04/19 10:16 Document 09/11/19 09:54 [id number] 09/11/19 10:00 09/04/19 09/11/19 10:12 09:54 Wound Center Nurse 2 #9- LLE WOUND CLUSTER -Time 10:12 09:56 -Correct Patient Yes Yes -Correct Side, Site, Position Yes Yes -Correct Procedure Yes Yes -Procedure Performed Yes Yes -Type of Procedure Debridement Debridement -Clinical Debridement Subcutaneous Subcutaneous -Post Debridement Size (cm) - Length 22 22 -Post Debridement Size (cm) - Width 8 9 -Post Debridement Size (cm) - Depth 0.2 0.2 -Total Square Cm 176 198 -Wound/Ulcer Outcome Not Healed Not Healed -Ulcer Cleansing Rinsed/ Rinsed/ Irrigated with Irrigated with Saline Saline -Foul Odor after Cleansing No No -Bioengineered Tissue No No -Bleeding Controlled with Pressure Pressure -Offloading No -Treatment Response Procedure Procedure Tolerated Well Tolerated Well Pain Scale: 0-10 Numeric Is Patient Pain Free? Yes Wound debrided: Left lower leg Laterality: Left Type of Debridement: Excisional debridement Anesthesia Used: 5% Lidocaine Gel Depth: in the subcutaneous layer Percentage of wound debrided: 100 Instrument Used: 7mm curette Tissue Removed: Devitalized subcutaneous tissue, adherent slough, fibrin, biofilm Severity: Fat Layer Exposed Amount of bleeding with debridement: Mild Bleeding Controlled with: Pressure Patient tolerated procedure well Assessment/Plan Assessment: Chronic left leg ulcer. Venous insufficiency. Leg edema. Delayed healing. Malnutrition suspected. Noncompliance. Continued smoking habits. Bacterial colonization and contamination is suspected Plan: Patient was carefully examined and evaluated again today. A cutaneous debridement was performed as noted in the clinical panel. The base was dressed with Aquacel Ag, followed by adaptic, and a dry sterile absorptive dressing. Antibiotic prescriptions dispensed for 2-week course of Augmentin and doxycycline since patient has done well with these in the past. He is to take these until complete. Patient is to continue with compression stockings as prescribed by Dr. Cade. Patient has been noncompliant with wearing compression as instructed. Patient had MRI taken previously as well and impression was read by radiologist is showing no signs of osteomyelitis, however there was a large venous varicosity seen within the subcutaneous tissue in the region of ulcer site. Full detailed report is in the patient's chart. Patient unable to tolerate almost every other dressing that has been tried to this date other than hydrofera blue and Aquacel Ag. The patient was referred to dermatology for a consult and biopsy of ulcer site to gain further information in the past as well. Biopsy results showed diagnosis as read by the lab: stasis dermatitis with an overlying cutaneous ulceration and reactive epidermal hyperplasia. They noted that the changes seen here are consistent with clinical impression of venous ulcer with reactive epidermal changes. Multiple deeper sections were examined. A PAS stain for fungal elements was negative. The entire path report will be in the patient's chart. He says he is unable to completely stop working, but he does have the option for light duty. Patient had a second injection procedure performed last week with Dr. Cade. He is to continue with prescribed thigh-high compression stockings by Dr. Cade. I stressed the importance of keeping pressure completely off of the ulcer and how this will impact his healing potential. Patient was instructed to be off his feet as much as possible and to keep the lower extremities elevated while not at work. The importance of compression was also discussed with this patient today. I continue to recommend nutritional supplementation with a high-protein diet at this time in order to help optimize ulcer healing potential. The patient continues to state that he has stopped smoking since his most recent vascular procedure. Patient also saw Dr. Spencer as a consult in the past as well who offered the patient a surgical debridement with advanced wound graft placement, but patient denied this option. Patient was again informed that he remains at risk for limb loss. All signs and symptoms of local and systemic infection were discussed in great detail with the patient today and he was instructed to go to the emergency room immediately should he notice any of these. All questions were answered to the patient's satisfaction. Patient will follow back up at the wound healing center in 1 week with, but was instructed to follow-up sooner if needed before then.
[2019-09-18 09:27] VITALS: BP 158/94; PULSE 91; RESP 14; TEMP 36.3; BMI 31.4
--- NOTE | 2019-09-18 09:59 | PCM.WC.PN ---
(1) Ulcer of left lower extremity with fat layer exposed Status: Chronic Current Visit: No Code(s): L97.922 - Non-pressure chronic ulcer of unspecified part of left lower leg with fat layer exposed (2) PVD (peripheral vascular disease) Status: Acute Current Visit: No Code(s): I73.9 - Peripheral vascular disease, unspecified (3) Chronic venous insufficiency Status: Chronic Current Visit: No Code(s): I87.2 - Venous insufficiency (chronic) (peripheral) (4) Edema, lower extremity Status: Chronic Current Visit: No Code(s): R60.0 - Localized edema (5) Pain of left lower extremity Status: Chronic Current Visit: No Code(s): M79.605 - Pain in left leg (6) Delayed wound healing Status: Chronic Current Visit: No Code(s): T14.8XXD - Other injury of unspecified body region, subsequent encounter (7) Non-compliance with treatment Status: Chronic Current Visit: No Code(s): Z91.19 - Patient's noncompliance with other medical treatment and regimen Type of Wound Date of Service: 09/18/19 Chief Complaint: ulcers to the left lower leg/foot History of Wound: This is a 54-year-old male presents to wound healing center with a long-standing history of chronic venous insufficiency, chronic venous hypertension, lower extremity edema, lower extremity pain, and chronic left lower extremity ulcer. He is seen today as a courtesy visit for Dr. Elkins. 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 He is currently wearing graduated compression stockings which are documented to be 20-30 mmHg compression and these are thigh high. He reports great compliance with use. He is also had previous arterial work-up with no intervention recommended by letter, his vascular surgeon. He denies taking nutritional supplementation. He saw dermatology and had a biopsy of the ulcer site. He also was previously treated by infectious disease for various contaminations and infections. He is not antibiotics at this time nor does he have any redness or odor coming from the wound. He denies fever, chill, nausea, vomiting, loss of appetite. Progress of Wound: Continued improvement of overall appearance. Patient denies any feelings of nausea, vomiting, fever, chills at this time. - Physical Exam Vital Signs Temp Pulse Resp BP 97.3 F L 91 14 158/94 H 09/18/19 09:27 09/18/19 09:27 09/18/19 09:27 09/18/19 09:27 General: Alert, Oriented x3, Cooperative, No apparent distress Extremities: Capillary Refill Less than 3 Seconds, No Calf Tenderness - Negative Lakisha and Hough signs, Diminished Peripheral Pulses, Edema - Mild lower extremity edema Skin: Ulcer/ Wound - Ulcer to left medial ankle with fat layer exposed. Continued slow improvement noted. The base continues to be a mixture of devitalized subcutaneous tissue, slough, fibrin, continued increasing granular tissue, biofilm, as well as some surrounding hyperkeratotic tissue. There continues to be no probing to bone, no tracking, no undermining, no surrounding or extending cellulitis, no purulence, no malodor, no increase in warmth to the ulcer site. Moderate to heavy drainage noted. Wound Measurements and Assessment WC - Nurse 1 - General Ulcer Measurement Start: 09/04/19 09:33 Freq: Status: Active Protocol: Activity Type Activity Date Activity User E-Sign Co-Sign Detail Recorded Client Recorded Date Recorded By Document 09/18/19 09:27 [id number] 09/18/19 09:35 09/18/19 09:27 Wound Center Nurse 1 [Ulcer Assessment] #9- LLE WOUND CLUSTER -Combined with other wound No -Current Size (cm) - Length 23.8 -Current Size (cm) - Width 10.8 -Current Size (cm) - Depth 0.2 -Total Square Cm 257.04 -Photo Taken No -Epithelialization Small 1-33% -Tunneling No -Undermining/Tunneling No -Circular Undermining No -Exudate Amt Medium -Exudate Type Serosanguineous -Wound Margin Distinct, Outline Attached -Granulation Amt Medium (34-66%) -Granulation Quality Red -Necrosis Amt Small (1-33%) -Necrotic Tissue Type Adherent Slough -Structure Exposed N/A -Texture (Ara-wound Skin Appearance) Scarring -Moisture (Ara-wound Skin Appearance No Abnormality, ) Assessed -Color (Ara-wound Skin Appearance) Hemosiderin Staining -Temperature (Ara-wound Skin No Abnormality Appearance) (Pt Warm) -Tenderness on Palpation (Ara-wound No Skin Appearance) -Ulcer Cleansing Rinsed/ Irrigated with Saline -Foul Odor after Cleansing No -Anesthetic Used 4% Lidocaine Solution WC - Nurse 2 - General Ulcer CM Notes Start: 09/04/19 09:33 Freq: Status: Active Protocol: Activity Type Activity Date Activity User E-Sign Co-Sign Detail Recorded Client Recorded Date Recorded By Document 09/18/19 09:43 DV [id number] 09/18/19 09:46 DV 09/18/19 09:43 Wound Center Nurse 2 [Procedure/Treatment] -Time 09:43 -Correct Patient Yes -Correct Side, Site, Position Yes -Correct Procedure Yes -Procedure Performed Yes -Type of Procedure Debridement -Clinical Debridement Subcutaneous -Post Debridement Size (cm) - Length 24.0 -Post Debridement Size (cm) - Width 11.2 -Post Debridement Size (cm) - Depth 0.2 -Total Square Cm 268.80 -Wound/Ulcer Outcome Not Healed -Ulcer Cleansing Rinsed/ Irrigated with Saline -Foul Odor after Cleansing No -Bioengineered Tissue No -Bleeding Controlled with Pressure -Offloading No -Treatment Response Procedure Tolerated Well [See Physician Procedure note for Specifics] Pain Scale: 0-10 Numeric [Pain] -Is Patient Pain Free? Yes Musculoskeletal: Tenderness - With certain areas of ulcer site manipulation Neurological: Sensory exam intact to light touch and pain - With areas of altered/decreased sensation to lower extremities Psych/Mental Status: Normal Affect, Appropriate Debridement Note Post-Debridement Measurements/Treatment - Nurse 2 - General Ulcer CM Notes Start: 09/04/19 09:33 Freq: Status: Active Protocol: Activity Type Activity Date Activity User E-Sign Co-Sign Detail Recorded Client Recorded Date Recorded By Document 09/04/19 10:12 [id number] 09/04/19 10:16 Document 09/11/19 09:54 [id number] 09/11/19 10:00 Document 09/18/19 09:43 DV [id number] 09/18/19 09:46 DV 09/04/19 09/11/19 09/18/19 10:12 09:54 09:43 Wound Center Nurse 2 #9- LLE WOUND CLUSTER -Time 10:12 09:56 09:43 -Correct Patient Yes Yes Yes -Correct Side, Site, Position Yes Yes Yes -Correct Procedure Yes Yes Yes -Procedure Performed Yes Yes Yes -Type of Procedure Debridement Debridement Debridement -Clinical Debridement Subcutaneous Subcutaneous Subcutaneous -Post Debridement Size (cm) - Length 22 22 24.0 -Post Debridement Size (cm) - Width 8 9 11.2 -Post Debridement Size (cm) - Depth 0.2 0.2 0.2 -Total Square Cm 176 198 268.80 -Wound/Ulcer Outcome Not Healed Not Healed Not Healed -Ulcer Cleansing Rinsed/ Rinsed/ Rinsed/ Irrigated with Irrigated with Irrigated with Saline Saline Saline -Foul Odor after Cleansing No No No -Bioengineered Tissue No No No -Bleeding Controlled with Pressure Pressure Pressure -Offloading No No -Treatment Response Procedure Procedure Procedure Tolerated Well Tolerated Well Tolerated Well Pain Scale: 0-10 Numeric Is Patient Pain Free? Yes Yes Wound debrided: Left lower leg Laterality: Left Type of Debridement: Excisional debridement Anesthesia Used: 5% Lidocaine Gel Depth: in the subcutaneous layer Percentage of wound debrided: 100 Instrument Used: 7mm curette Tissue Removed: Devitalized subcutaneous tissue, adherent slough, fibrin, biofilm Severity: Fat Layer Exposed Amount of bleeding with debridement: Mild Bleeding Controlled with: Pressure Patient tolerated procedure well Assessment/Plan Assessment: Chronic left leg ulcer. Venous insufficiency. Leg edema. Delayed healing. Malnutrition suspected. Noncompliance. Continued smoking habits. Bacterial colonization and contamination is suspected Plan: Patient was carefully examined and evaluated again today. Overall appearance of ulcer site continues to improve slowly. A subcutaneous debridement was performed as noted in the clinical panel again today. The base was dressed with Aquacel Ag, followed by adaptic, and a dry sterile absorptive dressing. Patient is to continue with Augmentin and doxycycline until complete. Patient is to continue with compression stockings as prescribed by Dr. Cade. Patient has been noncompliant with wearing compression as instructed. Patient had MRI taken previously as well and impression was read by radiologist is showing no signs of osteomyelitis, however there was a large venous varicosity seen within the subcutaneous tissue in the region of ulcer site. Full detailed report is in the patient's chart. Patient unable to tolerate almost every other dressing that has been tried to this date other than hydrofera blue and Aquacel Ag. The patient was referred to dermatology for a consult and biopsy of ulcer site to gain further information in the past as well. Biopsy results showed diagnosis as read by the lab: stasis dermatitis with an overlying cutaneous ulceration and reactive epidermal hyperplasia. They noted that the changes seen here are consistent with clinical impression of venous ulcer with reactive epidermal changes. Multiple deeper sections were examined. A PAS stain for fungal elements was negative. The entire path report will be in the patient's chart. He says he is unable to completely stop working, but he does have the option for light duty. Patient had a second injection procedure performed last week with Dr. Cade. He is to continue with prescribed thigh-high compression stockings by Dr. Cade. I stressed the importance of keeping pressure completely off of the ulcer and how this will impact his healing potential. Patient was instructed to be off his feet as much as possible and to keep the lower extremities elevated while not at work. The importance of compression was also discussed with this patient today. I continue to recommend nutritional supplementation with a high-protein diet at this time in order to help optimize ulcer healing potential. The patient continues to state that he has stopped smoking since his most recent vascular procedure. Patient also saw Dr. Spencer as a consult in the past as well, who offered the patient a surgical debridement with advanced wound graft placement, but patient denied this option. Patient was again informed that he remains at risk for limb loss. All signs and symptoms of local and systemic infection were discussed in great detail with the patient today and he was instructed to go to the emergency room immediately should he notice any of these. All questions were answered to the patient's satisfaction. Patient will follow back up at the wound healing center in 2 weeks, but was instructed to follow-up sooner if needed before then.
== END 2019-09-27 23:59 ==
LOC: WC 09:30
PROVIDERS: Referring Provider Podiatrist; Visit Provider Podiatrist
DX: I87.312 Chronic venous hypertension (idiopathic) with ulcer of left lower extremity (principal); Z91.19 Patient's noncompliance with other medical treatment and regimen; R60.0 Localized edema; L97.822 Non-pressure chronic ulcer of other part of left lower leg with fat layer exposed; M79.605 Pain in left leg; F17.200 Nicotine dependence, unspecified, uncomplicated
CPT/HCPCS: 11042; 11045; 97597

== ENCOUNTER 2019-10-16 09:30 | Outpatient (RCR) | payer BC, SELFPAY ==
[2019-09-28 00:38] VITALS: BP 158/94; PULSE 91; RESP 14; TEMP 36.3
[2019-10-02 13:31] VITALS: BP 134/84; PULSE 89; RESP 18; BMI 31.4
--- NOTE | 2019-10-02 17:12 | PN.PCM_ITS ---
(1) Ulcer of right lower leg Status: Chronic Current Visit: No Code(s): L97.919 - Non-pressure chronic ulcer of unspecified part of right lower leg with unspecified severity (2) Venous hypertension, chronic, with ulcer and inflammation Status: Chronic Current Visit: No Qualifiers: Laterality: right Qualified Code(s): I87.331 - Chronic venous hypertension (idiopathic) with ulcer and inflammation of right lower extremity Code(s): I87.339 - Chronic venous hypertension (idiopathic) with ulcer and inflammation of unspecified lower extremity (3) PVD (peripheral vascular disease) Status: Chronic Current Visit: No Code(s): I73.9 - Peripheral vascular disease, unspecified (4) Delayed wound healing Status: Chronic Current Visit: No Code(s): T14.8XXD - Other injury of unspecified body region, subsequent encounter (5) Peripheral vascular occlusive disease Status: Chronic Current Visit: No Code(s): I73.9 - Peripheral vascular disease, unspecified Type of Wound Date of Service: 10/03/19 Chief Complaint: ulcers to the left lower leg History of Wound: This is a 54-year-old male presents to wound healing center with a long-standing history of chronic venous insufficiency, chronic venous hypertension, lower extremity edema, lower extremity pain, and chronic left lower extremity ulcer. 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 He is currently wearing graduated compression stockings which are documented to be 20-30 mmHg compression and these are thigh high. He reports great compliance with use. He is also had previous arterial work-up with no intervention recommended by letter, his vascular surgeon. He denies taking nutritional supplementation. He saw dermatology and had a biopsy of the ulcer site. He also was previously treated by infectious disease for various contaminations and infections. He is not antibiotics at this time nor does he have any redness or odor coming from the wound. He denies fever, chill, nausea, vomiting, loss of appetite. Progress of Wound: Continued improvement of overall appearance. The patient denies any fever, chills, nausea, vomiting, or diarrhea. Denies any signs of infection, including increasing pain, redness, swelling, or purulent/foul?smelling drainage from affected area. - Physical Exam Vital Signs Temp Pulse Resp BP 97.3 F L 89 18 134/84 H 09/28/19 00:38 10/02/19 13:31 10/02/19 13:31 10/02/19 13:31 General: Alert, Oriented x3, Cooperative, No apparent distress HEENT: Atraumatic, EOMI, Normocephalic Extremities: No clubbing, No cyanosis, Diminished Peripheral Pulses, Edema - Mild, Tenderness - Tenderness on manipulation of ulcerations Skin: Ulcer/ Wound - See nursing documentation; chronic LLE ulcer cluster; large amounts of dry, scaling skin surrounding ulcerations, but no warmth or increased swelling, no purulent or foul-smelling drainage from ulcerations. Wound Measurements and Assessment WC - Nurse 1 - General Ulcer Measurement Start: 10/02/19 13:30 Freq: Status: Active Protocol: Activity Type Activity Date Activity User E-Sign Co-Sign Detail Recorded Client Recorded Date Recorded By Document 10/02/19 13:31 BS [id number] 10/02/19 13:39 BS 10/02/19 13:31 Wound Center Nurse 1 [Ulcer Assessment] #9- LLE WOUND CLUSTER -Combined with other wound No -Current Size (cm) - Length 11.0 -Current Size (cm) - Width 22.0 -Current Size (cm) - Depth 0.2 -Total Square Cm 242.00 -Photo Taken No -Granulation Quality Harvey,Red -Texture (Ara-wound Skin Appearance) Assessed,Callus ,Scarring -Moisture (Ara-wound Skin Appearance Assessed,Dry/ ) Scaly -Temperature (Ara-wound Skin No Abnormality Appearance) (Pt Warm) -Tenderness on Palpation (Ara-wound No Skin Appearance) -Ulcer Cleansing Rinsed/ Irrigated with Saline -Foul Odor after Cleansing No -Anesthetic Used 5% Lidocaine Gel WC - Nurse 2 - General Ulcer CM Notes Start: 10/02/19 13:30 Freq: Status: Active Protocol: Activity Type Activity Date Activity User E-Sign Co-Sign Detail Recorded Client Recorded Date Recorded By Document 10/02/19 14:37 DV [id number] 10/02/19 15:00 DV 10/02/19 14:37 Wound Center Nurse 2 [Procedure/Treatment] -Time 14:39 -Correct Patient Yes -Correct Side, Site, Position Yes -Correct Procedure Yes -Procedure Performed Yes -Type of Procedure Debridement -Clinical Debridement Subcutaneous -Post Debridement Size (cm) - Length 22.0 -Post Debridement Size (cm) - Width 10.0 -Post Debridement Size (cm) - Depth 0.2 -Total Square Cm 220.00 -Wound/Ulcer Outcome Not Healed -Ulcer Cleansing Rinsed/ Irrigated with Saline -Foul Odor after Cleansing No -Bioengineered Tissue No -Bleeding Controlled with Pressure -Offloading No -Treatment Response Procedure Tolerated Well [See Physician Procedure note for Specifics] Pain Scale: 0-10 Numeric [Pain] -Is Patient Pain Free? Yes Neurological: Neuro grossly intact Psych/Mental Status: Normal Affect, Appropriate Debridement Note Post-Debridement Measurements/Treatment WC - Nurse 2 - General Ulcer CM Notes Start: 10/02/19 13:30 Freq: Status: Active Protocol: Activity Type Activity Date Activity User E-Sign Co-Sign Detail Recorded Client Recorded Date Recorded By Document 10/02/19 14:37 DV [id number] 10/02/19 15:00 DV 10/02/19 14:37 Wound Center Nurse 2 #9- LLE WOUND CLUSTER -Time 14:39 -Correct Patient Yes -Correct Side, Site, Position Yes -Correct Procedure Yes -Procedure Performed Yes -Type of Procedure Debridement -Clinical Debridement Subcutaneous -Post Debridement Size (cm) - Length 22.0 -Post Debridement Size (cm) - Width 10.0 -Post Debridement Size (cm) - Depth 0.2 -Total Square Cm 220.00 -Wound/Ulcer Outcome Not Healed -Ulcer Cleansing Rinsed/ Irrigated with Saline -Foul Odor after Cleansing No -Bioengineered Tissue No -Bleeding Controlled with Pressure -Offloading No -Treatment Response Procedure Tolerated Well Pain Scale: 0-10 Numeric Is Patient Pain Free? Yes Wound debrided: Left lower extremity ulcer Laterality: Left Type of Debridement: Excisional debridement Anesthesia Used: 5% Lidocaine Gel Depth: in the subcutaneous layer Percentage of wound debrided: 100 Instrument Used: 7mm curette Tissue Removed: Slough and devitalized tissue Severity: Fat Layer Exposed Amount of bleeding with debridement: Moderate Bleeding Controlled with: Compression and gauze Patient tolerated procedure well Assessment/Plan Assessment: Chronic left leg ulcer. Venous insufficiency. Leg edema. Delayed healing. Malnutrition suspected. Noncompliance. Continued smoking habits. Bacterial colonization and contamination is suspected Plan: Patient seen today in clinic as a courtesy visit for Dr. Elkins. Patient was carefully examined and evaluated again today. Overall appearance of ulcer site continues to improve slowly, although there has been an increase in size. A subcutaneous debridement was performed as noted in the clinical panel again today. The base was dressed with Aquacel Ag, followed by adaptic, and a dry sterile absorptive dressing. Patient has completed courses of Augmentin and doxycycline as previously prescribed. Patient is to continue with compression stockings as prescribed by Dr. Cade. Patient had MRI taken previously as well and impression was read by radiologist is showing no signs of osteomyelitis, however there was a large venous varicosity seen within the subcutaneous tissue in the region of ulcer site. Full detailed report is in the patient's chart. Patient unable to tolerate almost every other dressing that has been tried to this date other than hydrofera blue and Aquacel Ag. The patient was referred to dermatology for a consult and biopsy of ulcer site to gain further information in the past as well. Biopsy results showed diagnosis as read by the lab: stasis dermatitis with an overlying cutaneous ulceration and reactive epidermal hyperplasia. They noted that the changes seen here are consistent with clinical impression of venous ulcer with reactive epidermal changes. Multiple deeper sections were examined. A PAS stain for fungal elements was negative. The entire path report will be in the patient's chart. He says he is unable to completely stop working, but he does have the option for light duty. Patient had a second injection procedure performed with Dr. Cade. He is to continue with prescribed thigh-high compression stockings by Dr. Cade. I stressed the importance of keeping pressure completely off of the ulcer and how this will impact his healing potential. Patient was instructed to be off his feet as much as possible and to keep the lower extremities elevated while not at work. The importance of compression was also discussed with this patient today. I continue to recommend nutritional supplementation with a high-protein diet at this time in order to help optimize ulcer healing potential. The patient continues to state that he has stopped smoking since his most recent vascular procedure. Patient also saw Dr. Spencer as a consult in the past as well, who offered the patient a surgical debridement with advanced wound graft placement, but patient denied this option. Patient was again informed that he remains at risk for limb loss. All signs and symptoms of local and systemic infection were discussed in great detail with the patient today and he was instructed to go to the emergency room immediately should he notice any of these. All questions were answered to the patient's satisfaction. Patient is adamant that his ulcerations look much better with this 2-week follow-up then they do with weekly debridements. Due to patient preference, patient will follow back up at the wound healing center in 2 weeks, but was instructed to follow-up sooner if needed before then. Code Visit [id number]: [id number] Lakeisha subq tissue 20 sq cm/<
[2019-10-16 09:43] VITALS: BP 167/91; PULSE 80; RESP 18; TEMP 36.6; BMI 31.4
--- NOTE | 2019-10-16 10:24 | PN.PCM_ITS ---
(1) Ulcer of left lower extremity with fat layer exposed Status: Chronic Current Visit: No Code(s): L97.922 - Non-pressure chronic ulcer of unspecified part of left lower leg with fat layer exposed (2) PVD (peripheral vascular disease) Status: Chronic Current Visit: No Code(s): I73.9 - Peripheral vascular disease, unspecified (3) Chronic venous insufficiency Status: Chronic Current Visit: No Code(s): I87.2 - Venous insufficiency (chronic) (peripheral) (4) Edema, lower extremity Status: Chronic Current Visit: No Code(s): R60.0 - Localized edema (5) Pain of left lower extremity Status: Chronic Current Visit: No Code(s): M79.605 - Pain in left leg (6) Delayed wound healing Status: Chronic Current Visit: No Code(s): T14.8XXD - Other injury of unspecified body region, subsequent encounter (7) Non-compliance with treatment Status: Chronic Current Visit: No Code(s): Z91.19 - Patient's noncompliance with other medical treatment and regimen Type of Wound Date of Service: 10/16/19 Chief Complaint: ulcers to the left lower leg History of Wound: This is a 54-year-old male presents to wound healing center with a long-standing history of chronic venous insufficiency, chronic venous hypertension, lower extremity edema, lower extremity pain, and chronic left lower extremity ulcer. 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 He is currently wearing graduated compression stockings which are documented to be 20-30 mmHg compression and these are thigh high. He reports great compliance with use. He is also had previous arterial work-up with no intervention recommended by letter, his vascular surgeon. He denies taking nutritional supplementation. He saw dermatology and had a biopsy of the ulcer site. He also was previously treated by infectious disease for various contaminations and infections. He is not antibiotics at this time nor does he have any redness or odor coming from the wound. He denies fever, chill, nausea, vomiting, loss of appetite. Progress of Wound: Continued slow improvement. Patient denies any feelings of nausea, vomiting, fever, chills at this time. - Physical Exam Vital Signs Temp Pulse Resp BP 98 F 80 18 167/91 H 10/16/19 09:43 10/16/19 09:43 10/16/19 09:43 10/16/19 09:43 General: Alert, Oriented x3, Cooperative, No apparent distress Extremities: Capillary Refill Less than 3 Seconds, No Calf Tenderness - Negative Lakisha and Hough signs, Diminished Peripheral Pulses, Edema - Mild lower extremity edema Skin: Ulcer/ Wound - Ulcer to left medial ankle with fat layer exposed. Continued slow improvement noted again. The base continues to be a mixture of devitalized subcutaneous tissue, slough, fibrin, continued increasing granular tissue, biofilm, as well as some surrounding hyperkeratotic tissue. There continues to be no probing to bone, no tracking, no undermining, no surrounding or extending cellulitis, no purulence, no malodor, no increase in warmth to the ulcer site. Moderate to heavy drainage noted. Wound Measurements and Assessment WC - Nurse 1 - General Ulcer Measurement Start: 10/02/19 13:30 Freq: Status: Active Protocol: Activity Type Activity Date Activity User E-Sign Co-Sign Detail Recorded Client Recorded Date Recorded By Document 10/16/19 09:43 [id number] 10/16/19 09:45 RB 10/16/19 09:43 Wound Center Nurse 1 [Ulcer Assessment] #9- LLE WOUND CLUSTER -Combined with other wound No -Current Size (cm) - Length 22 -Current Size (cm) - Width 13.5 -Current Size (cm) - Depth 0.2 -Total Square Cm 297.0 -Tunneling No -Undermining/Tunneling No -Circular Undermining No -Exudate Amt Large -Exudate Type Serosanguineous -Wound Margin Fibrotic Scar, Thickened Scar -Granulation Amt Medium (34-66%) -Granulation Quality Smiley,Red -Slough/Fibrin Yes -Necrosis Amt Small (1-33%) -Necrotic Tissue Type Adherent Slough -Structure Exposed N/A -Texture (Ara-wound Skin Appearance) Assessed, Scarring -Moisture (Ara-wound Skin Appearance Assessed ) -Color (Ara-wound Skin Appearance) Assessed -Temperature (Ara-wound Skin No Abnormality Appearance) (Pt Warm) -Tenderness on Palpation (Ara-wound No Skin Appearance) -Ulcer Cleansing Wound Cleanser -Foul Odor after Cleansing No -Anesthetic Used 4% Lidocaine Solution [Edema Assessment] -Lower Limb Edema Present Yes -Left Calf (cm) 34.5 -Left Ankle (cm) 24 - Nurse 2 - General Ulcer CM Notes Start: 10/02/19 13:30 Freq: Status: Active Protocol: Activity Type Activity Date Activity User E-Sign Co-Sign Detail Recorded Client Recorded Date Recorded By Document 10/16/19 09:58 DV [id number] 10/16/19 10:01 DV 10/16/19 09:58 Wound Center Nurse 2 [Procedure/Treatment] #9- LLE WOUND CLUSTER -Time 09:58 -Correct Patient Yes -Correct Side, Site, Position Yes -Correct Procedure Yes -Procedure Performed Yes -Type of Procedure Debridement -Clinical Debridement Subcutaneous -Post Debridement Size (cm) - Length 22.2 -Post Debridement Size (cm) - Width 10.5 -Post Debridement Size (cm) - Depth 0.2 -Total Square Cm 233.10 -Wound/Ulcer Outcome Not Healed -Ulcer Cleansing Rinsed/ Irrigated with Saline -Foul Odor after Cleansing No -Bioengineered Tissue No -Bleeding Controlled with Pressure -Offloading No -Treatment Response Procedure Tolerated Well [See Physician Procedure note for Specifics] Pain Scale: 0-10 Numeric [Pain] -Is Patient Pain Free? Yes Musculoskeletal: Tenderness - Very slight tenderness within certain areas of the ulcer site Neurological: Sensory exam intact to light touch and pain - With areas of altered/decreased sensation to lower extremities Psych/Mental Status: Normal Affect, Appropriate Debridement Note Post-Debridement Measurements/Treatment - Nurse 2 - General Ulcer CM Notes Start: 10/02/19 13:30 Freq: Status: Active Protocol: Activity Type Activity Date Activity User E-Sign Co-Sign Detail Recorded Client Recorded Date Recorded By Document 10/02/19 14:37 DV [id number] 10/02/19 15:00 DV Document 10/16/19 09:58 DV [id number] 10/16/19 10:01 DV 10/02/19 10/16/19 14:37 09:58 Wound Center Nurse 2 #9- LLE WOUND CLUSTER -Time 14:39 09:58 -Correct Patient Yes Yes -Correct Side, Site, Position Yes Yes -Correct Procedure Yes Yes -Procedure Performed Yes Yes -Type of Procedure Debridement Debridement -Clinical Debridement Subcutaneous Subcutaneous -Post Debridement Size (cm) - Length 22.0 22.2 -Post Debridement Size (cm) - Width 10.0 10.5 -Post Debridement Size (cm) - Depth 0.2 0.2 -Total Square Cm 220.00 233.10 -Wound/Ulcer Outcome Not Healed Not Healed -Ulcer Cleansing Rinsed/ Rinsed/ Irrigated with Irrigated with Saline Saline -Foul Odor after Cleansing No No -Bioengineered Tissue No No -Bleeding Controlled with Pressure Pressure -Offloading No No -Treatment Response Procedure Procedure Tolerated Well Tolerated Well Pain Scale: 0-10 Numeric Is Patient Pain Free? Yes Yes Wound debrided: Left lower leg Laterality: Left Type of Debridement: Excisional debridement Anesthesia Used: 4% Lidocaine Solution Depth: in the subcutaneous layer Percentage of wound debrided: 100 Instrument Used: 7mm curette Tissue Removed: Devitalized subcutaneous tissue, adherent slough, fibrin, biofilm Severity: Fat Layer Exposed Amount of bleeding with debridement: Mild Bleeding Controlled with: Pressure Patient tolerated procedure well Assessment/Plan Assessment: Chronic left leg ulcer. Venous insufficiency. Leg edema. Delayed healing. Malnutrition suspected. Noncompliance. Continued smoking habits. Bacterial colonization and contamination is suspected Plan: Patient was carefully examined and evaluated again today. Overall appearance of ulcer site continues to improve slowly this week. Another s ubcutaneous debridement was performed as noted in the clinical panel again today. The base was dressed with Aquacel Ag, followed by adaptic, and a dry sterile absorptive dressing. Patient is to continue with compression stockings as prescribed by Dr. Cade. Patient has been noncompliant with wearing compression as instructed. Patient had MRI taken previously as well and impression was read by radiologist is showing no signs of osteomyelitis, however there was a large venous varicosity seen within the subcutaneous tissue in the region of ulcer site. Full detailed report is in the patient's chart. Patient unable to tolerate almost every other dressing that has been tried to this date other than hydrofera blue and Aquacel Ag. The patient was referred to dermatology for a consult and biopsy of ulcer site to gain further information in the past as well. Biopsy results showed diagnosis as read by the lab: stasis dermatitis with an overlying cutaneous ulceration and reactive epidermal hyperplasia. They noted that the changes seen here are consistent with clinical impression of venous ulcer with reactive epidermal changes. Multiple deeper sections were examined. A PAS stain for fungal elements was negative. The entire path report will be in the patient's chart. He says he is unable to completely stop working, but he does have the option for light duty. Patient had a second injection procedure performed last week with Dr. Cade. He is to continue with prescribed thigh-high compression stockings by Dr. Cade. I stressed the importance of keeping pressure completely off of the ulcer and how this will impact his healing potential. Patient was instructed to be off his feet as much as possible and to keep the lower extremities elevated while not at work. The importance of compression was also discussed with this patient today. I continue to recommend nutritional supplementation with a high-protein diet at this time in order to help optimize ulcer healing potential. The patient continues to state that he has stopped smoking since his most recent vascular procedure. Patient also saw Dr. Spencer as a consult in the past as well, who offered the patient a surgical debridement with advanced wound graft placement, but patient denied this option. Patient was again informed that he remains at risk for limb loss. All signs and symptoms of local and systemic inf ection were discussed in great detail with the patient today and he was instructed to go to the emergency room immediately should he notice any of these. All questions were answered to the patient's satisfaction. Patient will follow back up at the wound healing center in 2 weeks, but was instructed to follow-up sooner if needed before then.
== END 2019-10-28 23:59 ==
LOC: WC 09:30
PROVIDERS: Referring Provider Podiatrist; Visit Provider Podiatrist
DX: I87.312 Chronic venous hypertension (idiopathic) with ulcer of left lower extremity (principal); L97.822 Non-pressure chronic ulcer of other part of left lower leg with fat layer exposed; R60.0 Localized edema; F17.200 Nicotine dependence, unspecified, uncomplicated; Z91.19 Patient's noncompliance with other medical treatment and regimen; M79.605 Pain in left leg
CPT/HCPCS: 11042; 11045

== ENCOUNTER 2019-11-27 09:30 | Outpatient (RCR) | payer BC, SELFPAY ==
[2019-10-29 00:32] VITALS: BP 167/91; PULSE 80; RESP 18; TEMP 36.6
[2019-10-30 09:35] VITALS: BP 148/92; PULSE 107; RESP 16; TEMP 37.2; BMI 31.4
--- NOTE | 2019-10-30 12:16 | PN.PCM_ITS ---
(1) Ulcer of left lower extremity with fat layer exposed Status: Chronic Current Visit: No Code(s): L97.922 - Non-pressure chronic ulcer of unspecified part of left lower leg with fat layer exposed (2) PVD (peripheral vascular disease) Status: Chronic Current Visit: No Code(s): I73.9 - Peripheral vascular disease, unspecified (3) Chronic venous insufficiency Status: Chronic Current Visit: No Code(s): I87.2 - Venous insufficiency (chronic) (peripheral) (4) Edema, lower extremity Status: Chronic Current Visit: No Code(s): R60.0 - Localized edema (5) Pain of left lower extremity Status: Chronic Current Visit: No Code(s): M79.605 - Pain in left leg (6) Delayed wound healing Status: Chronic Current Visit: No Code(s): T14.8XXD - Other injury of unspecified body region, subsequent encounter (7) Non-compliance with treatment Status: Chronic Current Visit: No Code(s): Z91.19 - Patient's noncompliance with other medical treatment and regimen Type of Wound Date of Service: 10/30/19 Chief Complaint: ulcers to the left lower leg History of Wound: This is a 54-year-old male presents to wound healing center with a long-standing history of chronic venous insufficiency, chronic venous hypertension, lower extremity edema, lower extremity pain, and chronic left lower extremity ulcer. The patient has previously undergone endovenous laser ablation of the left and right great saphenous vein, the small saphenous vein, the left accessory saphenous vein, and an incompetent left calf hide splitter vein located 15 cm proximal to the left medial malleolus. He is currently wearing graduated compression stockings which are documented to be 20-30 mmHg compression and these are thigh high. He reports great compliance with use. He is also had previous arterial work-up with no intervention recommended by letter, his vascular surgeon. He denies taking nutritional supplementation. He saw dermatology and had a biopsy of the ulcer site. He also was previously treated by infectious disease for various contaminations and infections. He is not antibiotics at this time nor does he have any redness or odor coming from the wound. He denies fever, chill, nausea, vomiting, loss of appetite. Progress of Wound: Slow improvement still noted. Patient denies any feelings of nausea, vomiting, fever, chills at this time. - Physical Exam Vital Signs Temp Pulse Resp BP 98.9 F 107 H 16 148/92 H 10/30/19 09:35 10/30/19 09:35 10/30/19 09:35 10/30/19 09:35 General: Alert, Oriented x3, Cooperative, No apparent distress Extremities: Capillary Refill Less than 3 Seconds, No Calf Tenderness - Negative Lakisha and Hough signs, Diminished Peripheral Pulses, Edema - Mild lower extremity edema Skin: Ulcer/ Wound - Ulcer to left medial ankle with fat layer exposed. The base continues to be a mixture of devitalized subcutaneous tissue, slough, fibrin, continued increasing granular tissue, biofilm, as well as some surrounding hyperkeratotic tissue. There continues to be no probing to bone, no tracking, no undermining, no surrounding or extending cellulitis, no purulence, no ma lodor, no increase in warmth to the ulcer site. Moderate to heavy drainage noted. Wound Measurements and Assessment WC - Nurse 1 - General Ulcer Measurement Start: 10/30/19 09:34 Freq: Status: Active Protocol: Activity Type Activity Date Activity User E-Sign Co-Sign Detail Recorded Client Recorded Date Recorded By Document 10/30/19 09:35 [facility] [id number] 10/30/19 09:39 [facility] 10/30/19 09:35 Wound Center Nurse 1 [Ulcer Assessment] #9- LLE WOUND CLUSTER -Current Size (cm) - Length 22.8 -Current Size (cm) - Width 10 -Current Size (cm) - Depth 0.3 -Total Square Cm 228.0 -Photo Taken Yes -Exudate Amt Medium -Exudate Type Serosanguineous -Wound Margin Distinct, Outline Attached -Granulation Amt Large (67-100%) -Granulation Quality Red -Necrosis Amt Small (1-33%) -Necrotic Tissue Type Adherent Slough -Structure Exposed N/A -Texture (Ara-wound Skin Appearance) Scarring -Moisture (Ara-wound Skin Appearance Dry/Scaly ) -Color (Ara-wound Skin Appearance) Hemosiderin Staining -Temperature (Ara-wound Skin No Abnormality Appearance) (Pt Warm) -Tenderness on Palpation (Ara-wound No Skin Appearance) -Ulcer Cleansing Wound Cleanser -Foul Odor after Cleansing No -Anesthetic Used 4% Lidocaine Solution [Edema Assessment] -Left Calf (cm) 35.7 -Left Ankle (cm) 22.5 WC - Nurse 2 - General Ulcer CM Notes Start: 10/30/19 09:34 Freq: Status: Active Protocol: Activity Type Activity Date Activity User E-Sign Co-Sign Detail Recorded Client Recorded Date Recorded By Document 10/30/19 10:24 DV [id number] 10/30/19 10:28 DV 10/30/19 10:24 Wound Center Nurse 2 [Procedure/Treatment] #9- LLE WOUND CLUSTER -Time 10:31 -Correct Patient Yes -Correct Side, Site, Position Yes -Correct Procedure Yes -Procedure Performed Yes -Type of Procedure Debridement -Clinical Debridement Subcutaneous -Post Debridement Size (cm) - Length 23.0 -Post Debridement Size (cm) - Width 10.0 -Post Debridement Size (cm) - Depth 0.3 -Total Square Cm 230.00 -Wound/Ulcer Outcome Not Healed -Ulcer Cleansing Rinsed/ Irrigated with Saline -Foul Odor after Cleansing No -Bioengineered Tissue No -Bleeding Controlled with Pressure -Offloading No -Treatment Response Procedure Tolerated Well [See Physician Procedure note for Specifics] Pain Scale: 0-10 Numeric [Pain] -Is Patient Pain Free? Yes Musculoskeletal: Tenderness - Very slight tenderness in certain areas of ulcer site Neurological: Sensory exam intact to light touch and pain - With areas of altered/decreased sensation to lower extremities Psych/Mental Status: Normal Affect, Appropriate Debridement Note Post-Debridement Measurements/Treatment - Nurse 2 - General Ulcer CM Notes Start: 10/30/19 09:34 Freq: Status: Active Protocol: Activity Type Activity Date Activity User E-Sign Co-Sign Detail Recorded Client Recorded Date Recorded By Document 10/30/19 10:24 DV [id number] 10/30/19 10:28 DV 10/30/19 10:24 Wound Center Nurse 2 #9- LLE WOUND CLUSTER -Time 10:31 -Correct Patient Yes -Correct Side, Site, Position Yes -Correct Procedure Yes -Procedure Performed Yes -Type of Procedure Debridement -Clinical Debridement Subcutaneous -Post Debridement Size (cm) - Length 23.0 -Post Debridement Size (cm) - Width 10.0 -Post Debridement Size (cm) - Depth 0.3 -Total Square Cm 230.00 -Wound/Ulcer Outcome Not Healed -Ulcer Cleansing Rinsed/ Irrigated with Saline -Foul Odor after Cleansing No -Bioengineered Tissue No -Bleeding Controlled with Pressure -Offloading No -Treatment Response Procedure Tolerated Well Pain Scale: 0-10 Numeric Is Patient Pain Free? Yes Wound debrided: Left lower leg Laterality: Left Type of Debridement: Excisional debridement Anesthesia Used: 4% Lidocaine Solution Depth: in the subcutaneous layer Percentage of wound debrided: 100 Instrument Used: 7mm curette Tissue Removed: Devitalized subcutaneous tissue, adherent slough, fibrin, biofilm Severity: Fat Layer Exposed Amount of bleeding with debridement: Mild Bleeding Controlled with: Pressure Patient tolerated procedure well Assessment/Plan Assessment: Chronic left leg ulcer. Venous insufficiency. Leg edema. Delayed healing. Malnutrition suspected. Noncompliance. Continued smoking habits. Bacterial colonization and contamination is suspected Plan: Patient was carefully examined and evaluated again today. Continued slow improvement appreciated. Another subcutaneous debridement was performed as noted in the clinical panel again today. The base was dressed with Aquacel Ag, followed by adaptic, and a dry sterile absorptive dressing. Patient is to continue with compression stockings as prescribed by Dr. Cade. Patient has been noncompliant with wearing compression as instructed. Patient had MRI taken previously as well and impression was read by radiologist is showing no signs of osteomyelitis, however there was a large venous varicosity seen within the subcutaneous tissue in the region of ulcer site. Full detailed report is in the patient's chart. Patient unable to tolerate almost every other dressing that has been tried to this date other than hydrofera blue and Aquacel Ag. The patient was referred to dermatology for a consult and biopsy of ulcer site to gain further information in the past as well. Biopsy results showed diagnosis as read by the lab: stasis dermatitis with an overlying cutaneous ulceration and reactive epidermal hyperplasia. They noted that the changes seen here are consistent with clinical impression of venous ulcer with reactive epidermal changes. Multiple deeper sections were examined. A PAS stain for fungal elements was negative. The entire path report will be in the patient's chart. He says he is unable to completely stop working, but he does have the option for light duty. Patient had a second injection procedure performed last week with Dr. Cade. He is to continue with prescribed thigh-high compression stockings by Dr. Cade. I stressed the importance of keeping pressure completely off of the ulcer and how this will impact his healing potential. Patient was instructed to be off his feet as much as possible and to keep the lower extremities elevated while not at work. The importance of compression was also discussed with this patient today. I continue to recommend nutritional supplementation with a high-protein diet at this time in order to help optimize ulcer healing potential. The patient continues to state that he has stopped smoking since his most recent vascular procedure. Patient also saw Dr. Spencer as a consult in the past as well, who offered the patient a surgical debridement with advanced wound graft placement, but patient denied this option. Patient was again informed that he remains at risk for limb loss. All signs and symptoms of local and systemic infection were discussed in great detail with the patient today and he was instructed to go to the emergency room immediately should he notice any of these. All questions were answered to the patient's satisfaction. Patient will follow back up at the wound healing center in 1 week, but was instructed to follow-up sooner if needed before then.
[2019-11-06 09:13] VITALS: BP 158/82; PULSE 84; RESP 16; TEMP 36.7; BMI 31.4
--- NOTE | 2019-11-06 11:31 | PCM.WC.PN ---
(1) Ulcer of left lower extremity with fat layer exposed Status: Chronic Current Visit: No Code(s): L97.922 - Non-pressure chronic ulcer of unspecified part of left lower leg with fat layer exposed (2) PVD (peripheral vascular disease) Status: Chronic Current Visit: No Code(s): I73.9 - Peripheral vascular disease, unspecified (3) Chronic venous insufficiency Status: Chronic Current Visit: No Code(s): I87.2 - Venous insufficiency (chronic) (peripheral) (4) Edema, lower extremity Status: Chronic Current Visit: No Code(s): R60.0 - Localized edema (5) Pain of left lower extremity Status: Chronic Current Visit: No Code(s): M79.605 - Pain in left leg (6) Delayed wound healing Status: Chronic Current Visit: No Code(s): T14.8XXD - Other injury of unspecified body region, subsequent encounter (7) Non-compliance with treatment Status: Chronic Current Visit: No Code(s): Z91.19 - Patient's noncompliance with other medical treatment and regimen Type of Wound Date of Service: 11/06/19 Chief Complaint: ulcers to the left lower leg History of Wound: This is a 54-year-old male presents to wound healing center with a long-standing history of chronic venous insufficiency, chronic venous hypertension, lower extremity edema, lower extremity pain, and chronic left lower extremity ulcer. The patient has previously undergone endovenous laser ablation of the left and right great saphenous vein, the small saphenous vein, the left accessory saphenous vein, and an incompetent left calf brim setter vein located 15 cm proximal to the left medial malleolus. He is currently wearing graduated compression stockings which are documented to be 20-30 mmHg compression and these are thigh high. He reports great compliance with use. He is also had previous arterial work-up with no intervention recommended by letter, his vascular surgeon. He denies taking nutritional supplementation. He saw dermatology and had a biopsy of the ulcer site. He also was previously treated by infectious disease for various contaminations and infections. He is not antibiotics at this time nor does he have any redness or odor coming from the wound. He denies fever, chill, nausea, vomiting, loss of appetite. Progress of Wound: Continued improvement noted. Significant skin bridging noted that the ulcer was broken into 3 separate ulcers today. Patient denies any feelings of nausea, vomiting, fever, chills at this time. - Physical Exam Vital Signs Temp Pulse Resp BP 98.1 F 84 16 158/82 H 11/06/19 09:13 11/06/19 09:13 11/06/19 09:13 11/06/19 09:13 General: Alert, Oriented x3, Cooperative, No apparent distress Extremities: Capillary Refill Less than 3 Seconds, No Calf Tenderness - Negative Lakisha and Hough signs, Diminished Peripheral Pulses, Edema - Mild lower extremity edema Skin: Ulcer/ Wound - Ulcer to left medial ankle with fat layer exposed. Significant amount of skin bridging in between areas of the ulcer that the ulcer was broken up into 3 separate ulcer sites today. The base continues to be a mixture of devitalized subcutaneous tissue, slough, fibrin, continued increasing granular tissue, biofilm, as well as some surrounding hyperkeratotic tissue. There continues to be no probing to bone, no tracking, no undermining, no surrounding or extending cellulitis, no purulence, no malodor, no increase in warmth to the ulcer site. Moderate to heavy drainage noted. Wound Measurements and Assessment WC - Nurse 1 - General Ulcer Measurement Start: 10/30/19 09:34 Freq: Status: Active Protocol: Activity Type Activity Date Activity User E-Sign Co-Sign Detail Recorded Client Recorded Date Recorded By Document 11/06/19 09:13 [facility] [id number] 11/06/19 09:21 [facility] 11/06/19 09:13 Wound Center Nurse 1 [Ulcer Assessment] #9- LLE WOUND CLUSTER -Combined with other wound No -Current Size (cm) - Length 22.7 -Current Size (cm) - Width 9.6 -Current Size (cm) - Depth 0.2 -Total Square Cm 217.92 -Photo Taken No -Epithelialization Small 1-33% -Tunneling No -Undermining/Tunneling No -Circular Undermining No -Exudate Amt Small -Exudate Type Serosanguineous -Wound Margin Distinct, Outline Attached -Granulation Amt Medium (34-66%) -Granulation Quality Red -Slough/Fibrin Yes -Necrosis Amt Medium (34-66%) -Necrotic Tissue Type Adherent Slough -Texture (Ara-wound Skin Appearance) Assessed, Scarring -Moisture (Ara-wound Skin Appearance Assessed,Dry/ ) Scaly -Color (Raa-wound Skin Appearance) Assessed, Erythema, Hemosiderin Staining -Temperature (Ara-wound Skin No Abnormality Appearance) (Pt Warm) -Tenderness on Palpation (Ara-wound No Skin Appearance) -Ulcer Cleansing soapy water -Foul Odor after Cleansing No -Anesthetic Used 4% Lidocaine Solution [Edema Assessment] -Lower Limb Edema Present Yes -Left Calf (cm) 35.7 -Left Ankle (cm) 22.5 WC - Nurse 2 - General Ulcer CM Notes Start: 10/30/19 09:34 Freq: Status: Active Protocol: Activity Type Activity Date Activity User E-Sign Co-Sign Detail Recorded Client Recorded Date Recorded By Document 11/06/19 09:35 DV [id number] 11/06/19 09:45 DV 11/06/19 09:35 Wound Center Nurse 2 [Procedure/Treatment] #12 Medial Superior LLE -Time 09:41 -Correct Patient Yes -Correct Side, Site, Position Yes -Correct Procedure Yes -Procedure Performed Yes -Type of Procedure Debridement -Clinical Debridement Subcutaneous -Post Debridement Size (cm) - Length 5.0 -Post Debridement Size (cm) - Width 6.0 -Post Debridement Size (cm) - Depth 0.2 -Total Square Cm 30.00 -Wound/Ulcer Outcome Not Healed -Ulcer Cleansing Rinsed/ Irrigated with Saline -Foul Odor after Cleansing No -Bioengineered Tissue No -Bleeding Controlled with Pressure -Offloading No -Treatment Response Procedure Tolerated Well #11 Medial Inferior LLE -Time 09:40 -Correct Patient Yes -Correct Side, Site, Position Yes -Correct Procedure Yes -Procedure Performed Yes -Type of Procedure Debridement -Clinical Debridement Subcutaneous -Post Debridement Size (cm) - Length 4.5 -Post Debridement Size (cm) - Width 3.8 -Post Debridement Size (cm) - Depth 0.2 -Total Square Cm 17.10 -Wound/Ulcer Outcome Not Healed -Ulcer Cleansing Rinsed/ Irrigated with Saline -Foul Odor after Cleansing No -Bioengineered Tissue No -Bleeding Controlled with Pressure -Offloading No -Treatment Response Procedure Tolerated Well #10 Left Medial Ankle -Time 09:38 -Correct Patient Yes -Correct Side, Site, Position Yes -Correct Procedure Yes -Procedure Performed Yes -Type of Procedure Debridement -Clinical Debridement Subcutaneous -Post Debridement Size (cm) - Length 4.5 -Post Debridement Size (cm) - Width 4.0 -Post Debridement Size (cm) - Depth 0.3 -Total Square Cm 18.00 -Wound/Ulcer Outcome Not Healed -Ulcer Cleansing Rinsed/ Irrigated with Saline -Foul Odor after Cleansing No -Bioengineered Tissue No -Bleeding Controlled with Pressure -Offloading No -Treatment Response Procedure Tolerated Well #9- LLE WOUND CLUSTER -Time 09:36 -Correct Patient Yes -Correct Side, Site, Position Yes -Correct Procedure No -Procedure Performed No -Post Debridement Size (cm) - Length 0 -Post Debridement Size (cm) - Width 0 -Post Debridement Size (cm) - Depth 0 -Total Square Cm 0 -Wound/Ulcer Outcome Converted [See Physician Procedure note for Specifics] Pain Scale: 0-10 Numeric [Pain] -Is Patient Pain Free? Yes Musculoskeletal: Tenderness - Very slight tenderness in certain areas of ulcer site Neurological: Sensory exam intact to light touch and pain - With areas of altered/decreased sensation to lower extremities Psych/Mental Status: Normal Affect, Appropriate Debridement Note Post-Debridement Measurements/Treatment WC - Nurse 2 - General Ulcer CM Notes Start: 10/30/19 09:34 Freq: Status: Active Protocol: Activity Type Activity Date Activity User E-Sign Co-Sign Detail Recorded Client Recorded Date Recorded By Document 10/30/19 10:24 DV [id number] 10/30/19 10:28 DV Document 11/06/19 09:35 DV [id number] 11/06/19 09:45 DV 10/30/19 11/06/19 10:24 09:35 Wound Center Nurse 2 #12 Medial Superior LLE -Time 09:41 -Correct Patient Yes -Correct Side, Site, Position Yes -Correct Procedure Yes -Procedure Performed Yes -Type of Procedure Debridement -Clinical Debridement Subcutaneous -Post Debridement Size (cm) - Length 5.0 -Post Debridement Size (cm) - Width 6.0 -Post Debridement Size (cm) - Depth 0.2 -Total Square Cm 30.00 -Wound/Ulcer Outcome Not Healed -Ulcer Cleansing Rinsed/ Irrigated with Saline -Foul Odor after Cleansing No -Bioengineered Tissue No -Bleeding Controlled with Pressure -Offloading No -Treatment Response Procedure Tolerated Well #11 Medial Inferior LLE -Time 09:40 -Correct Patient Yes -Correct Side, Site, Position Yes -Correct Procedure Yes -Procedure Performed Yes -Type of Procedure Debridement -Clinical Debridement Subcutaneous -Post Debridement Size (cm) - Length 4.5 -Post Debridement Size (cm) - Width 3.8 -Post Debridement Size (cm) - Depth 0.2 -Total Square Cm 17.10 -Wound/Ulcer Outcome Not Healed -Ulcer Cleansing Rinsed/ Irrigated with Saline -Foul Odor after Cleansing No -Bioengineered Tissue No -Bleeding Controlled with Pressure -Offloading No -Treatment Response Procedure Tolerated Well #10 Left Medial Ankle -Time 09:38 -Correct Patient Yes -Correct Side, Site, Position Yes -Correct Procedure Yes -Procedure Performed Yes -Type of Procedure Debridement -Clinical Debridement Subcutaneous -Post Debridement Size (cm) - Length 4.5 -Post Debridement Size (cm) - Width 4.0 -Post Debridement Size (cm) - Depth 0.3 -Total Square Cm 18.00 -Wound/Ulcer Outcome Not Healed -Ulcer Cleansing Rinsed/ Irrigated with Saline -Foul Odor after Cleansing No -Bioengineered Tissue No -Bleeding Controlled with Pressure -Offloading No -Treatment Response Procedure Tolerated Well #9- LLE WOUND CLUSTER -Time 10:31 09:36 -Correct Patient Yes Yes -Correct Side, Site, Position Yes Yes -Correct Procedure Yes No -Procedure Performed Yes No -Type of Procedure Debridement -Clinical Debridement Subcutaneous -Post Debridement Size (cm) - Length 23.0 0 -Post Debridement Size (cm) - Width 10.0 0 -Post Debridement Size (cm) - Depth 0.3 0 -Total Square Cm 230.00 0 -Wound/Ulcer Outcome Not Healed Converted -Ulcer Cleansing Rinsed/ Irrigated with Saline -Foul Odor after Cleansing No -Bioengineered Tissue No -Bleeding Controlled with Pressure -Offloading No -Treatment Response Procedure Tolerated Well Pain Scale: 0-10 Numeric Is Patient Pain Free? Yes Yes Wound debrided: Left medial ankle Laterality: Left Type of Debridement: Excisional debridement Anesthesia Used: 4% Lidocaine Solution Depth: in the subcutaneous layer Percentage of wound debrided: 100 Instrument Used: 7mm curette Tissue Removed: Devitalized subcutaneous tissue, adherent slough, fibrin, biofilm Severity: Fat Layer Exposed Amount of bleeding with debridement: Mild Bleeding Controlled with: Pressure Patient tolerated procedure well - Additional Wound Wound debrided: Left lower leg inferior Laterality: Left Type of Debridement: Excisional debridement Anesthesia Used: 4% Lidocaine Solution Depth: in the subcutaneous layer Percentage of wound debrided: 100 Instrument Used: 7mm curette Tissue Removed: Devitalized subcutaneous tissue, adherent slough, fibrin, biofilm Severity: Fat Layer Exposed Amount of bleeding with debridement: Mild Bleeding Controlled with: Pressure Patient tolerated procedure: Patient tolerated procedure well - Additional Wound Wound debrided: Left lower leg superior Laterality: Left Type of Debridement: Excisional debridement Anesthesia Used: 4% Lidocaine Solution Depth: in the subcutaneous layer Percentage of wound debrided: 100 Instrument Used: 7mm curette Tissue Removed: Devitalized subcutaneous tissue, adherent slough, fibrin, biofilm Severity: Fat Layer Exposed Amount of bleeding with debridement: Mild Bleeding Controlled with: Pressure Patient tolerated procedure: Patient tolerated procedure well Assessment/Plan Assessment: Chronic left leg ulcer. Venous insufficiency. Leg edema. Delayed healing. Malnutrition suspected. Noncompliance. Continued smoking habits. Bacterial colonization and contamination is suspected Plan: Patient was carefully examined and evaluated again today. Continued improvement and skin bridging noted in the original large ulcer site was broken into 3 separate smaller ulcers today. Another subcutaneous debridement was performed as noted in the clinical panel again today to each site. The bases were dressed with Aquacel Ag, followed by adaptic, and a dry sterile absorptive dressing. Patient is to continue with compression stockings as prescribed by Dr. Cade. Patient has been noncompliant with wearing compression as instructed. Patient had MRI taken previously as well and impression was read by radiologist is showing no signs of osteomyelitis, however there was a large venous varicosity seen within the subcutaneous tissue in the region of ulcer site. Full detailed report is in the patient's chart. Patient unable to tolerate almost every other dressing that has been tried to this date other than hydrofera blue and Aquacel Ag. The patient was referred to dermatology for a consult and biopsy of ulcer site to gain further information in the past as well. Biopsy results showed diagnosis as read by the lab: stasis dermatitis with an overlying cutaneous ulceration and reactive epidermal hyperplasia. They noted that the changes seen here are consistent with clinical impression of venous ulcer with reactive epidermal changes. Multiple deeper sections were examined. A PAS stain for fungal elements was negative. The entire path report will be in the patient's chart. He says he is unable to completely stop working, but he does have the option for light duty. Patient had a second injection procedure performed last week with Dr. Cade. He is to continue with prescribed thigh-high compression stockings by Dr. Cade. I stressed the importance of keeping pressure completely off of the ulcer and how this will impact his healing potential. Patient was instructed to be off his feet as much as possible and to keep the lower extremities elevated while not at work. The importance of compression was also discussed with this patient today. I continue to recommend nutritional supplementation with a high-protein diet at this time in order to help optimize ulcer healing potential. The patient continues to state that he has stopped smoking since his most recent vascular procedure. Patient also saw Dr. Spencer as a consult in the past as well, who offered the patient a surgical debridement with advanced wound graft placement, but patient denied this option. Patient was again informed that he remains at risk for limb loss. All signs and symptoms of local and systemic infection were discussed in great detail with the patient today and he was instructed to go to the emergency room immediately should he notice any of these. All questions were answered to the patient's satisfaction. Patient will follow back up at the wound healing center in 1 week, but was instructed to follow-up sooner if needed before then.
[2019-11-13 09:23] VITALS: BP 145/89; PULSE 80; RESP 20; TEMP 36.4; BMI 31.4
--- NOTE | 2019-11-13 10:12 | PN.PCM_ITS ---
(1) Ulcer of left lower extremity with fat layer exposed Status: Chronic Current Visit: No Code(s): L97.922 - Non-pressure chronic ulcer of unspecified part of left lower leg with fat layer exposed (2) PVD (peripheral vascular disease) Status: Chronic Current Visit: No Code(s): I73.9 - Peripheral vascular disease, unspecified (3) Chronic venous insufficiency Status: Chronic Current Visit: No Code(s): I87.2 - Venous insufficiency (chronic) (peripheral) (4) Edema, lower extremity Status: Chronic Current Visit: No Code(s): R60.0 - Localized edema (5) Pain of left lower extremity Status: Chronic Current Visit: No Code(s): M79.605 - Pain in left leg (6) Delayed wound healing Status: Chronic Current Visit: No Code(s): T14.8XXD - Other injury of unspecified body region, subsequent encounter (7) Non-compliance with treatment Status: Chronic Current Visit: No Code(s): Z91.19 - Patient's noncompliance with other medical treatment and regimen Type of Wound Date of Service: 11/13/19 Chief Complaint: ulcers to the left lower leg History of Wound: This is a 54-year-old male presents to wound healing center with a long-standing history of chronic venous insufficiency, chronic venous hypertension, lower extremity edema, lower extremity pain, and chronic left lower extremity ulcer. The patient has previously undergone endovenous laser ablation of the left and right great saphenous vein, the small saphenous vein, the left accessory saphenous vein, and an incompetent left calf display coordinator vein located 15 cm proximal to the left medial malleolus. He is currently wearing graduated compression stockings which are documented to be 20-30 mmHg compression and these are thigh high. He reports great compliance with use. He is also had previous arterial work-up with no intervention recommended by letter, his vascular surgeon. He denies taking nutritional supplementation. He saw dermatology and had a biopsy of the ulcer site. He also was previously treated by infectious disease for various contaminations and infections. He is not antibiotics at this time nor does he have any redness or odor coming from the wound. He denies fever, chill, nausea, vomiting, loss of appetite. Progress of Wound: Continued slow moving improvement. Patient denies any feelings of nausea, vomiting, fever, chills at this time. - Physical Exam Vital Signs Temp Pulse Resp BP 97.5 F L 80 20 H 145/89 H 11/13/19 09:23 11/13/19 09:23 11/13/19 09:23 11/13/19 09:23 General: Alert, Oriented x3, Cooperative, No apparent distress Extremities: Capillary Refill Less than 3 Seconds, No Calf Tenderness - Negative Lakisha and Hough signs, Diminished Peripheral Pulses, Edema - Mild lower extremity edema Skin: Ulcer/ Wound - Ulcers to left medial ankle with fat layer exposed. The base continues to be a mixture of devitalized subcutaneous tissue, slough, fibrin, continued increasing granular tissue, biofilm, as well as some surrounding hyperkeratotic tissue. There continues to be no probing to bone, no tracking, no undermining, no surrounding or extending cellulitis, no purulence, no malodor, no increase in warmth to the ulcer site. Moderate to heavy drainage noted. Wound Measurements and Assessment WC - Nurse 1 - General Ulcer Measurement Start: 10/30/19 09:34 Freq: Status: Active Protocol: Activity Type Activity Date Activity User E-Sign Co-Sign Detail Recorded Client Recorded Date Recorded By Document 11/13/19 09:23 DL [id number] 11/13/19 09:32 DL 11/13/19 09:23 Wound Center Nurse 1 [Ulcer Assessment] #12 Medial Superior LLE -Current Size (cm) - Length 4.2 -Current Size (cm) - Width 6.2 -Current Size (cm) - Depth 0.2 -Total Square Cm 26.04 -Photo Taken No -Exudate Amt Small -Exudate Type Serosanguineous -Wound Margin Distinct, Outline Attached -Necrosis Amt Small (1-33%) -Necrotic Tissue Type Adherent Slough -Texture (Ara-wound Skin Appearance) Scarring -Moisture (Ara-wound Skin Appearance Dry/Scaly ) -Color (Ara-wound Skin Appearance) Hemosiderin Staining -Temperature (Ara-wound Skin No Abnormality Appearance) (Pt Warm) -Tenderness on Palpation (Ara-wound No Skin Appearance) -Ulcer Cleansing Wound Cleanser -Foul Odor after Cleansing No -Anesthetic Used 4% Lidocaine Solution #11 Medial Inferior LLE -Current Size (cm) - Length 4.7 -Current Size (cm) - Width 4.2 -Current Size (cm) - Depth 0.2 -Total Square Cm 19.74 -Photo Taken No -Exudate Amt Small -Exudate Type Serosanguineous -Wound Margin Distinct, Outline Attached -Granulation Amt Large (67-100%) -Granulation Quality Red -Necrosis Amt Small (1-33%) -Necrotic Tissue Type Adherent Slough -Structure Exposed N/A -Texture (Ara-wound Skin Appearance) Scarring -Moisture (Ara-wound Skin Appearance Dry/Scaly ) -Color (Ara-wound Skin Appearance) Hemosiderin Staining -Temperature (Ara-wound Skin No Abnormality Appearance) (Pt Warm) -Tenderness on Palpation (Ara-wound No Skin Appearance) -Ulcer Cleansing Wound Cleanser -Foul Odor after Cleansing No -Anesthetic Used 4% Lidocaine Solution #10 Left Medial Ankle -Current Size (cm) - Length 4 -Current Size (cm) - Width 4 -Current Size (cm) - Depth 0.2 -Total Square Cm 16 -Photo Taken No -Exudate Amt Small -Exudate Type Serosanguineous -Wound Margin Distinct, Outline Attached -Granulation Amt Large (67-100%) -Granulation Quality Pale,[place] -Necrosis Amt Small (1-33%) -Necrotic Tissue Type Adherent Slough -Structure Exposed N/A -Texture (Ara-wound Skin Appearance) Scarring -Moisture (Ara-wound Skin Appearance Dry/Scaly ) -Color (Ara-wound Skin Appearance) Hemosiderin Staining -Temperature (Ara-wound Skin No Abnormality Appearance) (Pt Warm) -Tenderness on Palpation (Ara-wound No Skin Appearance) -Ulcer Cleansing Wound Cleanser -Anesthetic Used 4% Lidocaine Solution [Edema Assessment] -Left Calf (cm) 34 -Left Ankle (cm) 22 WC - Nurse 2 - General Ulcer CM Notes Start: 10/30/19 09:34 Freq: Status: Active Protocol: Activity Type Activity Date Activity User E-Sign Co-Sign Detail Recorded Client Recorded Date Recorded By Document 11/13/19 09:45 DV [id number] 11/13/19 09:50 DV 11/13/19 09:45 Wound Center Nurse 2 [Procedure/Treatment] #12 Medial Superior LLE -Time 09:46 -Correct Patient Yes -Correct Side, Site, Position Yes -Correct Procedure Yes -Procedure Performed Yes -Type of Procedure Debridement -Clinical Debridement Subcutaneous -Post Debridement Size (cm) - Length 5.0 -Post Debridement Size (cm) - Width 6.0 -Post Debridement Size (cm) - Depth 0.2 -Total Square Cm 30.00 -Wound/Ulcer Outcome Not Healed -Ulcer Cleansing Rinsed/ Irrigated with Saline -Foul Odor after Cleansing No -Bioengineered Tissue No -Bleeding Controlled with Pressure -Offloading No -Treatment Response Procedure Tolerated Well #11 Medial Inferior LLE -Time 09:47 -Correct Patient Yes -Correct Side, Site, Position Yes -Correct Procedure Yes -Procedure Performed Yes -Type of Procedure Debridement -Clinical Debridement Subcutaneous -Post Debridement Size (cm) - Length 4.3 -Post Debridement Size (cm) - Width 3.7 -Post Debridement Size (cm) - Depth 0.3 -Total Square Cm 15.91 -Wound/Ulcer Outcome Not Healed -Ulcer Cleansing Rinsed/ Irrigated with Saline -Foul Odor after Cleansing No -Bioengineered Tissue No -Bleeding Controlled with Pressure -Offloading No -Treatment Response Procedure Tolerated Well #10 Left Medial Ankle -Time 09:48 -Correct Patient Yes -Correct Side, Site, Position Yes -Correct Procedure Yes -Procedure Performed Yes -Type of Procedure Debridement -Clinical Debridement Subcutaneous -Post Debridement Size (cm) - Length 4.3 -Post Debridement Size (cm) - Width 3.7 -Post Debridement Size (cm) - Depth 0.2 -Total Square Cm 15.91 -Wound/Ulcer Outcome Not Healed -Ulcer Cleansing Rinsed/ Irrigated with Saline -Foul Odor after Cleansing No -Bioengineered Tissue No -Bleeding Controlled with Pressure -Offloading No -Treatment Response Procedure Tolerated Well [See Physician Procedure note for Specifics] Pain Scale: 0-10 Numeric [Pain] -Is Patient Pain Free? Yes Musculoskeletal: Tenderness - Some minor tenderness in certain areas of some of the ulcers Neurological: Sensory exam intact to light touch and pain - With areas of altered/decreased sensation to lower extremities Psych/Mental Status: Normal Affect, Appropriate Debridement Note Post-Debridement Measurements/Treatment WC - Nurse 2 - General Ulcer CM Notes Start: 10/30/19 09:34 Freq: Status: Active Protocol: Activity Type Activity Date Activity User E-Sign Co-Sign Detail Recorded Client Recorded Date Recorded By Document 10/30/19 10:24 DV [id number] 10/30/19 10:28 DV Document 11/06/19 09:35 DV [id number] 11/06/19 09:45 DV Document 11/13/19 09:45 DV [id number] 11/13/19 09:50 DV 10/30/19 11/06/19 11/13/19 10:24 09:35 09:45 Wound Center Nurse 2 #12 Medial Superior LLE -Time 09:41 09:46 -Correct Patient Yes Yes -Correct Side, Site, Position Yes Yes -Correct Procedure Yes Yes -Procedure Performed Yes Yes -Type of Procedure Debridement Debridement -Clinical Debridement Subcutaneous Subcutaneous -Post Debridement Size (cm) - Length 5.0 5.0 -Post Debridement Size (cm) - Width 6.0 6.0 -Post Debridement Size (cm) - Depth 0.2 0.2 -Total Square Cm 30.00 30.00 -Wound/Ulcer Outcome Not Healed Not Healed -Ulcer Cleansing Rinsed/ Rinsed/ Irrigated with Irrigated with Saline Saline -Foul Odor after Cleansing No No -Bioengineered Tissue No No -Bleeding Controlled with Pressure Pressure -Offloading No No -Treatment Response Procedure Procedure Tolerated Well Tolerated Well #11 Medial Inferior LLE -Time 09:40 09:47 -Correct Patient Yes Yes -Correct Side, Site, Position Yes Yes -Correct Procedure Yes Yes -Procedure Performed Yes Yes -Type of Procedure Debridement Debridement -Clinical Debridement Subcutaneous Subcutaneous -Post Debridement Size (cm) - Length 4.5 4.3 -Post Debridement Size (cm) - Width 3.8 3.7 -Post Debridement Size (cm) - Depth 0.2 0.3 -Total Square Cm 17.10 15.91 -Wound/Ulcer Outcome Not Healed Not Healed -Ulcer Cleansing Rinsed/ Rinsed/ Irrigated with Irrigated with Saline Saline -Foul Odor after Cleansing No No -Bioengineered Tissue No No -Bleeding Controlled with Pressure Pressure -Offloading No No -Treatment Response Procedure Procedure Tolerated Well Tolerated Well #10 Left Medial Ankle -Time 09:38 09:48 -Correct Patient Yes Yes -Correct Side, Site, Position Yes Yes -Correct Procedure Yes Yes -Procedure Performed Yes Yes -Type of Procedure Debridement Debridement -Clinical Debridement Subcutaneous Subcutaneous -Post Debridement Size (cm) - Length 4.5 4.3 -Post Debridement Size (cm) - Width 4.0 3.7 -Post Debridement Size (cm) - Depth 0.3 0.2 -Total Square Cm 18.00 15.91 -Wound/Ulcer Outcome Not Healed Not Healed -Ulcer Cleansing Rinsed/ Rinsed/ Irrigated with Irrigated with Saline Saline -Foul Odor after Cleansing No No -Bioengineered Tissue No No -Bleeding Controlled with Pressure Pressure -Offloading No No -Treatment Response Procedure Procedure Tolerated Well Tolerated Well #9- LLE WOUND CLUSTER -Time 10:31 09:36 -Correct Patient Yes Yes -Correct Side, Site, Position Yes Yes -Correct Procedure Yes No -Procedure Performed Yes No -Type of Procedure Debridement -Clinical Debridement Subcutaneous -Post Debridement Size (cm) - Length 23.0 0 -Post Debridement Size (cm) - Width 10.0 0 -Post Debridement Size (cm) - Depth 0.3 0 -Total Square Cm 230.00 0 -Wound/Ulcer Outcome Not Healed Converted -Ulcer Cleansing Rinsed/ Irrigated with Saline -Foul Odor after Cleansing No -Bioengineered Tissue No -Bleeding Controlled with Pressure -Offloading No -Treatment Response Procedure Tolerated Well Pain Scale: 0-10 Numeric Is Patient Pain Free? Yes Yes Yes Wound debrided: Left medial ankle Laterality: Left Type of Debridement: Excisional debridement Anesthesia Used: 4% Lidocaine Solution Depth: in the subcutaneous layer Percentage of wound debrided: 100 Instrument Used: 7mm curette Tissue Removed: Devitalized subcutaneous tissue, adherent slough, fibrin, biofilm Severity: Fat Layer Exposed Amount of bleeding with debridement: Mild Bleeding Controlled with: Pressure Patient tolerated procedure well - Additional Wound Wound debrided: Left lower leg inferior Laterality: Left Type of Debridement: Excisional debridement Anesthesia Used: 4% Lidocaine Solution Depth: in the subcutaneous layer Percentage of wound debrided: 100 Instrument Used: 7mm curette Tissue Removed: Devitalized subcutaneous tissue, adherent slough, fibrin, biofilm Severity: Fat Layer Exposed Amount of bleeding with debridement: Mild Bleeding Controlled with: Pressure Patient tolerated procedure: Patient tolerated procedure well - Additional Wound Wound debrided: Left lower leg superior Laterality: Left Type of Debridement: Excisional debridement Anesthesia Used: 4% Lidocaine Solution Depth: in the subcutaneous layer Percentage of wound debrided: 100 Instrument Used: 7mm curette Tissue Removed: Devitalized subcutaneous tissue, adherent slough, fibrin, biofilm Severity: Fat Layer Exposed Amount of bleeding with debridement: Mild Bleeding Controlled with: Pressure Patient tolerated procedure: Patient tolerated procedure well Assessment/Plan Assessment: Chronic left leg ulcer. Venous insufficiency. Leg edema. Delayed healing. Malnutrition suspected. Noncompliance. Continued smoking habits. Bacterial colonization and contamination is suspected Plan: Patient was carefully examined and evaluated again today. Continued slow improvement noted. Another subcutaneous debridement was performed as noted in the clinical panel again today to each site. The bases were dressed with Aquacel Ag, followed by adaptic, and a dry sterile absorptive dressing. Patient is to continue with compression stockings as prescribed by Dr. Cade. Patient has been noncompliant with wearing compression as instructed. Patient had MRI taken previously as well and impression was read by radiologist is showing no signs of osteomyelitis, however there was a large venous varicosity seen within the subcutaneous tissue in the region of ulcer site. Full detailed report is in the patient's chart. Patient unable to tolerate almost every other dressing that has been tried to this date other than hydrofera blue and Aquacel Ag. The patient was referred to dermatology for a consult and biopsy of ulcer site to gain further information in the past as well. Biopsy results showed diagnosis as read by the lab: stasis dermatitis with an overlying cutaneous ulceration and reactive epidermal hyperplasia. They noted that the changes seen here are consistent with clinical impression of venous ulcer with reactive epidermal changes. Multiple deeper sections were examined. A PAS stain for fungal elements was negative. The entire path report will be in the patient's chart. He says he is unable to completely stop working, but he does have the option for light duty. Patient had a second injection procedure performed last week with Dr. Cade. He is to continue with prescribed thigh-high compression stockings by Dr. Cade. I stressed the importance of keeping pressure completely off of the ulcer and how this will impact his healing potential. Patient was instructed to be off his feet as much as possible and to keep the lower extremities elevated while not at work. The importance of compression was also discussed with this patient today. I continue to recommend nutritional supplementation with a high-protein diet at this time in order to help optimize ulcer healing p otential. The patient continues to state that he has stopped smoking since his most recent vascular procedure. Patient also saw Dr. Spencer as a consult in the past as well, who offered the patient a surgical debridement with advanced wound graft placement, but patient denied this option. Patient was again informed that he remains at risk for limb loss. All signs and symptoms of local and systemic infection were discussed in great detail with the patient today and he was instructed to go to the emergency room immediately should he notice any of these. All questions were answered to the patient's satisfaction. Patient will follow back up at the wound healing center in 1 week, but was instructed to follow-up sooner if needed before then.
[2019-11-20 09:46] VITALS: BP 153/72; PULSE 77; RESP 14; TEMP 36.4; BMI 31.4
--- NOTE | 2019-11-20 12:11 | PN.PCM_ITS ---
(1) Ulcer of left lower extremity with fat layer exposed Status: Chronic Current Visit: No Code(s): L97.922 - Non-pressure chronic ulcer of unspecified part of left lower leg with fat layer exposed (2) PVD (peripheral vascular disease) Status: Chronic Current Visit: No Code(s): I73.9 - Peripheral vascular disease, unspecified (3) Chronic venous insufficiency Status: Chronic Current Visit: No Code(s): I87.2 - Venous insufficiency (chronic) (peripheral) (4) Edema, lower extremity Status: Chronic Current Visit: No Code(s): R60.0 - Localized edema (5) Pain of left lower extremity Status: Chronic Current Visit: No Code(s): M79.605 - Pain in left leg (6) Delayed wound healing Status: Chronic Current Visit: No Code(s): T14.8XXD - Other injury of unspecified body region, subsequent encounter (7) Non-compliance with treatment Status: Chronic Current Visit: No Code(s): Z91.19 - Patient's noncompliance with other medical treatment and regimen Type of Wound Date of Service: 11/20/19 Chief Complaint: ulcers to the left lower leg History of Wound: This is a 54-year-old male presents to wound healing center with a long-standing history of chronic venous insufficiency, chronic venous hypertension, lower extremity edema, lower extremity pain, and chronic left lower extremity ulcer. 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 He is currently wearing graduated compression stockings which are documented to be 20-30 mmHg compression and these are thigh high. He reports great compliance with use. He is also had previous arterial work-up with no intervention recommended by letter, his vascular surgeon. He denies taking nutritional supplementation. He saw dermatology and had a biopsy of the ulcer site. He also was previously treated by infectious disease for various contaminations and infections. He is not antibiotics at this time nor does he have any redness or odor coming from the wound. He denies fever, chill, nausea, vomiting, loss of appetite. Progress of Wound: Slow improvement. Patient denies any feelings of nausea, vomiting, fever, chills at this time. - Physical Exam Vital Signs Temp Pulse Resp BP 97.6 F L 77 14 153/72 H 11/20/19 09:46 11/20/19 09:46 11/20/19 09:46 11/20/19 09:46 General: Alert, Oriented x3, Cooperative, No apparent distress Extremities: Capillary Refill Less than 3 Seconds, No Calf Tenderness - Negative Lakisha and Hough signs, Diminished Peripheral Pulses, Edema - Mild lower extremity edema Skin: Ulcer/ Wound - Ulcers to left medial ankle with fat layer exposed. The base continues to be a mixture of devitalized subcutaneous tissue, slough, fibrin, continued increasing granular tissue, biofilm, as well as some surrounding hyperkeratotic tissue. There continues to be no probing to bone, no tracking, no undermining, no surrounding or extending cellulitis, no purulence, no malodor, no increase in warmth to the ulcer site. Moderate to heavy drainage noted. Wound Measurements and Assessment WC - Nurse 1 - General Ulcer Measurement Start: 10/30/19 09:34 Freq: Status: Active Protocol: Activity Type Activity Date Activity User E-Sign Co-Sign Detail Recorded Client Recorded Date Recorded By Document 11/20/19 09:46 [id number] 11/20/19 09:55 11/20/19 09:46 Wound Center Nurse 1 [Ulcer Assessment] #12 Medial Superior LLE -Combined with other wound No -Current Size (cm) - Length 4.5 -Current Size (cm) - Width 6 -Current Size (cm) - Depth 0.1 -Total Square Cm 27.0 -Photo Taken No -Epithelialization None Present -Tunneling No -Undermining/Tunneling No -Circular Undermining No -Exudate Amt Large -Exudate Type Serosanguineous -Wound Margin Distinct, Outline Attached -Granulation Amt Large (67-100%) -Granulation Quality Red -Slough/Fibrin Yes -Necrosis Amt None Present (0 %) -Necrotic Tissue Type Adherent Slough -Structure Exposed N/A -Texture (Ara-wound Skin Appearance) Scarring -Moisture (Ara-wound Skin Appearance Dry/Scaly ) -Color (Ara-wound Skin Appearance) Erythema -Temperature (Ara-wound Skin No Abnormality Appearance) (Pt Warm) -Tenderness on Palpation (Ara-wound No Skin Appearance) -Ulcer Cleansing Rinsed/ Irrigated with Saline -Foul Odor after Cleansing No -Anesthetic Used 4% Lidocaine Solution #11 Medial Inferior LLE -Combined with other wound No -Current Size (cm) - Length 4 -Current Size (cm) - Width 4.1 -Current Size (cm) - Depth 0.1 -Total Square Cm 16.4 -Photo Taken No -Epithelialization None Present -Tunneling No -Undermining/Tunneling No -Circular Undermining No -Exudate Amt Large -Exudate Type Serosanguineous -Wound Margin Distinct, Outline Attached -Granulation Amt Large (67-100%) -Granulation Quality Red -Necrotic Tissue Type Adherent Slough -Structure Exposed N/A -Texture (Ara-wound Skin Appearance) Scarring -Moisture (Ara-wound Skin Appearance Dry/Scaly ) -Color (Ara-wound Skin Appearance) Erythema -Temperature (Ara-wound Skin No Abnormality Appearance) (Pt Warm) -Tenderness on Palpation (Ara-wound Yes Skin Appearance) -Ulcer Cleansing Rinsed/ Irrigated with Saline -Foul Odor after Cleansing No -Anesthetic Used 4% Lidocaine Solution #10 Left Medial Ankle -Combined with other wound No -Current Size (cm) - Length 4.3 -Current Size (cm) - Width 3.6 -Current Size (cm) - Depth 0.2 -Total Square Cm 15.48 -Photo Taken No -Epithelialization None Present -Tunneling No -Undermining/Tunneling No -Circular Undermining No -Exudate Amt Large -Exudate Type Serosanguineous -Wound Margin Distinct, Outline Attached -Granulation Amt Large (67-100%) -Granulation Quality Red -Slough/Fibrin Yes -Necrosis Amt None Present (0 %) -Necrotic Tissue Type Adherent Slough -Structure Exposed None/Limited to Skin Breakdown -Texture (Ara-wound Skin Appearance) Assessed, Scarring -Moisture (Ara-wound Skin Appearance Dry/Scaly ) -Color (Ara-wound Skin Appearance) Erythema -Temperature (Ara-wound Skin No Abnormality Appearance) (Pt Warm) -Tenderness on Palpation (Ara-wound No Skin Appearance) -Ulcer Cleansing Rinsed/ Irrigated with Saline -Foul Odor after Cleansing No -Anesthetic Used 4% Lidocaine Solution [Edema Assessment] -Lower Limb Edema Present NA WC - Nurse 2 - General Ulcer CM Notes Start: 10/30/19 09:34 Freq: Status: Active Protocol: Activity Type Activity Date Activity User E-Sign Co-Sign Detail Recorded Client Recorded Date Recorded By Document 11/20/19 10:30 DV [id number] 11/20/19 10:35 DV 11/20/19 10:30 Wound Center Nurse 2 [Procedure/Treatment] #12 Medial Superior LLE -Time 10:30 -Correct Patient Yes -Correct Side, Site, Position Yes -Correct Procedure Yes -Procedure Performed Yes -Type of Procedure Debridement -Clinical Debridement Subcutaneous -Post Debridement Size (cm) - Length 4.6 -Post Debridement Size (cm) - Width 6.0 -Post Debridement Size (cm) - Depth 0.2 -Total Square Cm 27.60 -Wound/Ulcer Outcome Not Healed #11 Medial Inferior LLE -Time 10:33 -Correct Patient Yes -Correct Side, Site, Position Yes -Correct Procedure Yes -Procedure Performed Yes -Type of Procedure Debridement -Clinical Debridement Subcutaneous -Post Debridement Size (cm) - Length 4.3 -Post Debridement Size (cm) - Width 3.9 -Post Debridement Size (cm) - Depth 0.2 -Total Square Cm 16.77 -Wound/Ulcer Outcome Not Healed #10 Left Medial Ankle -Time 10:34 -Correct Patient Yes -Correct Side, Site, Position Yes -Correct Procedure Yes -Procedure Performed Yes -Type of Procedure Debridement -Clinical Debridement Subcutaneous -Post Debridement Size (cm) - Length 4.2 -Post Debridement Size (cm) - Width 4.0 -Post Debridement Size (cm) - Depth 0.2 -Total Square Cm 16.80 -Wound/Ulcer Outcome Not Healed [See Physician Procedure note for Specifics] Musculoskeletal: Tenderness - Some minor tenderness in certain areas of each ulcer site Neurological: Sensory exam intact to light touch and pain - Along with areas of altered/decreased sensation to lower extremities Psych/Mental Status: Normal Affect, Appropriate Debridement Note Post-Debridement Measurements/Treatment WC - Nurse 2 - General Ulcer CM Notes Start: 10/30/19 09:34 Freq: Status: Active Protocol: Activity Type Activity Date Activity User E-Sign Co-Sign Detail Recorded Client Recorded Date Recorded By Document 10/30/19 10:24 DV [id number] 10/30/19 10:28 DV Document 11/06/19 09:35 DV [id number] 11/06/19 09:45 DV Document 11/13/19 09:45 DV [id number] 11/13/19 09:50 DV Document 11/20/19 10:30 DV [id number] 11/20/19 10:35 DV 10/30/19 11/06/19 11/13/19 10:24 09:35 09:45 Wound Center Nurse 2 #12 Medial Superior LLE -Time 09:41 09:46 -Correct Patient Yes Yes -Correct Side, Site, Position Yes Yes -Correct Procedure Yes Yes -Procedure Performed Yes Yes -Type of Procedure Debridement Debridement -Clinical Debridement Subcutaneous Subcutaneous -Post Debridement Size (cm) - Length 5.0 5.0 -Post Debridement Size (cm) - Width 6.0 6.0 -Post Debridement Size (cm) - Depth 0.2 0.2 -Total Square Cm 30.00 30.00 -Wound/Ulcer Outcome Not Healed Not Healed -Ulcer Cleansing Rinsed/ Rinsed/ Irrigated with Irrigated with Saline Saline -Foul Odor after Cleansing No No -Bioengineered Tissue No No -Bleeding Controlled with Pressure Pressure -Offloading No No -Treatment Response Procedure Procedure Tolerated Well Tolerated Well #11 Medial Inferior LLE -Time 09:40 09:47 -Correct Patient Yes Yes -Correct Side, Site, Position Yes Yes -Correct Procedure Yes Yes -Procedure Performed Yes Yes -Type of Procedure Debridement Debridement -Clinical Debridement Subcutaneous Subcutaneous -Post Debridement Size (cm) - Length 4.5 4.3 -Post Debridement Size (cm) - Width 3.8 3.7 -Post Debridement Size (cm) - Depth 0.2 0.3 -Total Square Cm 17.10 15.91 -Wound/Ulcer Outcome Not Healed Not Healed -Ulcer Cleansing Rinsed/ Rinsed/ Irrigated with Irrigated with Saline Saline -Foul Odor after Cleansing No No -Bioengineered Tissue No No -Bleeding Controlled with Pressure Pressure -Offloading No No -Treatment Response Procedure Procedure Tolerated Well Tolerated Well #10 Left Medial Ankle -Time 09:38 09:48 -Correct Patient Yes Yes -Correct Side, Site, Position Yes Yes -Correct Procedure Yes Yes -Procedure Performed Yes Yes -Type of Procedure Debridement Debridement -Clinical Debridement Subcutaneous Subcutaneous -Post Debridement Size (cm) - Length 4.5 4.3 -Post Debridement Size (cm) - Width 4.0 3.7 -Post Debridement Size (cm) - Depth 0.3 0.2 -Total Square Cm 18.00 15.91 -Wound/Ulcer Outcome Not Healed Not Healed -Ulcer Cleansing Rinsed/ Rinsed/ Irrigated with Irrigated with Saline Saline -Foul Odor after Cleansing No No -Bioengineered Tissue No No -Bleeding Controlled with Pressure Pressure -Offloading No No -Treatment Response Procedure Procedure Tolerated Well Tolerated Well #9- LLE WOUND CLUSTER -Time 10:31 09:36 -Correct Patient Yes Yes -Correct Side, Site, Position Yes Yes -Correct Procedure Yes No -Procedure Performed Yes No -Type of Procedure Debridement -Clinical Debridement Subcutaneous -Post Debridement Size (cm) - Length 23.0 0 -Post Debridement Size (cm) - Width 10.0 0 -Post Debridement Size (cm) - Depth 0.3 0 -Total Square Cm 230.00 0 -Wound/Ulcer Outcome Not Healed Converted -Ulcer Cleansing Rinsed/ Irrigated with Saline -Foul Odor after Cleansing No -Bioengineered Tissue No -Bleeding Controlled with Pressure -Offloading No -Treatment Response Procedure Tolerated Well Pain Scale: 0-10 Numeric Is Patient Pain Free? Yes Yes Yes 11/20/19 10:30 Wound Center Nurse 2 #12 Medial Superior LLE -Time 10:30 -Correct Patient Yes -Correct Side, Site, Position Yes -Correct Procedure Yes -Procedure Performed Yes -Type of Procedure Debridement -Clinical Debridement Subcutaneous -Post Debridement Size (cm) - Length 4.6 -Post Debridement Size (cm) - Width 6.0 -Post Debridement Size (cm) - Depth 0.2 -Total Square Cm 27.60 -Wound/Ulcer Outcome Not Healed -Ulcer Cleansing -Foul Odor after Cleansing -Bioengineered Tissue -Bleeding Controlled with -Offloading -Treatment Response #11 Medial Inferior LLE -Time 10:33 -Correct Patient Yes -Correct Side, Site, Position Yes -Correct Procedure Yes -Procedure Performed Yes -Type of Procedure Debridement -Clinical Debridement Subcutaneous -Post Debridement Size (cm) - Length 4.3 -Post Debridement Size (cm) - Width 3.9 -Post Debridement Size (cm) - Depth 0.2 -Total Square Cm 16.77 -Wound/Ulcer Outcome Not Healed -Ulcer Cleansing -Foul Odor after Cleansing -Bioengineered Tissue -Bleeding Controlled with -Offloading -Treatment Response #10 Left Medial Ankle -Time 10:34 -Correct Patient Yes -Correct Side, Site, Position Yes -Correct Procedure Yes -Procedure Performed Yes -Type of Procedure Debridement -Clinical Debridement Subcutaneous -Post Debridement Size (cm) - Length 4.2 -Post Debridement Size (cm) - Width 4.0 -Post Debridement Size (cm) - Depth 0.2 -Total Square Cm 16.80 -Wound/Ulcer Outcome Not Healed -Ulcer Cleansing -Foul Odor after Cleansing -Bioengineered Tissue -Bleeding Controlled with -Offloading -Treatment Response #9- LLE WOUND CLUSTER -Time -Correct Patient -Correct Side, Site, Position -Correct Procedure -Procedure Performed -Type of Procedure -Clinical Debridement -Post Debridement Size (cm) - Length -Post Debridement Size (cm) - Width -Post Debridement Size (cm) - Depth -Total Square Cm -Wound/Ulcer Outcome -Ulcer Cleansing -Foul Odor after Cleansing -Bioengineered Tissue -Bleeding Controlled with -Offloading -Treatment Response Pain Scale: 0-10 Numeric Is Patient Pain Free? Wound debrided: Left medial ankle Laterality: Left Type of Debridement: Excisional debridement Anesthesia Used: 4% Lidocaine Solution Depth: in the subcutaneous layer Percentage of wound debrided: 100 Instrument Used: 7mm curette Tissue Removed: Devitalized subcutaneous tissue, adherent slough, fibrin, biofilm Severity: Fat Layer Exposed Amount of bleeding with debridement: Mild Bleeding Controlled with: Pressure Patient tolerated procedure well - Additional Wound Wound debrided: Left lower leg inferior Laterality: Left Type of Debridement: Excisional debridement Anesthesia Used: 4% Lidocaine Solution Depth: in the subcutaneous layer Percentage of wound debrided: 100 Instrument Used: 7mm curette Tissue Removed: Devitalized subcutaneous tissue, adherent slough, fibrin, biofilm Severity: Fat Layer Exposed Amount of bleeding with debridement: Mild Bleeding Controlled with: Pressure Patient tolerated procedure: Patient tolerated procedure well - Additional Wound Wound debrided: Left lower leg superior Laterality: Left Type of Debridement: Excisional debridement Anesthesia Used: 4% Lidocaine Solution Depth: in the subcutaneous layer Percentage of wound debrided: 100 Instrument Used: 7mm curette Tissue Removed: Devitalized subcutaneous tissue, adherent slough, fibrin, biofilm Severity: Fat Layer Exposed Amount of bleeding with debridement: Mild Bleeding Controlled with: Pressure Patient tolerated procedure: Patient tolerated procedure well Assessment/Plan Assessment: Chronic left leg ulcer. Venous insufficiency. Leg edema. Delayed healing. Malnutrition suspected. Noncompliance. Continued smoking habits. Bacterial colonization and contamination is suspected Plan: Patient examined again today for left lower extremity ulcers. There con tinues to be very slow improvement appreciated, however, it is not moving as fast as it was in the direct weeks following his final vascular procedure by Dr. Cade. Another subcutaneous debridement was performed as noted in the clinical panel again today to each site. The bases were dressed with Aquacel Ag, followed by adaptic, and a dry sterile absorptive dressing. Patient is to continue with compression stockings as prescribed by Dr. Cade. Patient has been noncompliant with wearing compression as instructed. Patient had MRI taken previously as well and impression was read by radiologist is showing no signs of osteomyelitis, however there was a large venous varicosity seen within the subcutaneous tissue in the region of ulcer site. Full detailed report is in the patient's chart. Patient unable to tolerate almost every other dressing that has been tried to this date other than hydrofera blue and Aquacel Ag. The patient was referred to dermatology for a consult and biopsy of ulcer site to gain further information in the past as well. Biopsy results showed diagnosis as read by the lab: stasis dermatitis with an overlying cutaneous ulceration and reactive epidermal hyperplasia. They noted that the changes seen here are consistent with clinical impression of venous ulcer with reactive epidermal changes. Multiple deeper sections were examined. A PAS stain for fungal tulalip ents was negative. The entire path report will be in the patient's chart. He says he is unable to completely stop working, but he does have the option for light duty. Patient had a second injection procedure performed last week with Dr. Cade. He is to continue with prescribed thigh-high compression stockings by Dr. Cade. I stressed the importance of keeping pressure completely off of the ulcer and how this will impact his healing potential. Patient was instructed to be off his feet as much as possible and to keep the lower extremities elevated while not at work. The importance of compression was also discussed with this patient today. I continue to recommend nutritional supplementation with a high-protein diet at this time in order to help optimize ulcer healing potential. The patient continues to state that he has stopped smoking since his most recent vascular procedure. Patient also saw Dr. Spencer as a consult in the past as well, who offered the patient a surgical debridement with advanced wound graft placement, but patient denied this option. Patient was again informed that he remains at risk for limb loss. All signs and symptoms of local and systemic infection were discussed in great detail with the patient today and he was instructed to go to the emergency room immediately should he notice any of these. All questions were answered to the patient's satisfaction. Patient will follow back up at the wound healing center in 1 week, but was instructed to follow-up sooner if needed before then.
[2019-11-27 09:37] VITALS: BP 122/78; PULSE 91; RESP 18; TEMP 36.1; BMI 31.4
--- NOTE | 2019-11-27 13:02 | PN.PCM_ITS ---
(1) Ulcer of left lower extremity with fat layer exposed Status: Chronic Current Visit: No Code(s): L97.922 - Non-pressure chronic ulcer of unspecified part of left lower leg with fat layer exposed (2) PVD (peripheral vascular disease) Status: Chronic Current Visit: No Code(s): I73.9 - Peripheral vascular disease, unspecified (3) Chronic venous insufficiency Status: Chronic Current Visit: No Code(s): I87.2 - Venous insufficiency (chronic) (peripheral) (4) Edema, lower extremity Status: Chronic Current Visit: No Code(s): R60.0 - Localized edema (5) Pain of left lower extremity Status: Chronic Current Visit: No Code(s): M79.605 - Pain in left leg (6) Delayed wound healing Status: Chronic Current Visit: No Code(s): T14.8XXD - Other injury of unspecified body region, subsequent encounter (7) Non-compliance with treatment Status: Chronic Current Visit: No Code(s): Z91.19 - Patient's noncompliance with other medical treatment and regimen Type of Wound Date of Service: 11/27/19 Chief Complaint: ulcers to the left lower leg History of Wound: This is a 54-year-old male presents to wound healing center with a long-standing history of chronic venous insufficiency, chronic venous hypertension, lower extremity edema, lower extremity pain, and chronic left lower extremity ulcer. 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 He is currently wearing graduated compression stockings which are documented to be 20-30 mmHg compression and these are thigh high. He reports great compliance with use. He is also had previous arterial work-up with no intervention recommended by letter, his vascular surgeon. He denies taking nutritional supplementation. He saw dermatology and had a biopsy of the ulcer site. He also was previously treated by infectious disease for various contaminations and infections. He is not antibiotics at this time nor does he have any redness or odor coming from the wound. He denies fever, chill, nausea, vomiting, loss of appetite. Progress of Wound: Slight improvement noted again today. Patient denies any feelings of nausea, vomiting, fever, chills at this time. - Physical Exam Vital Signs Temp Pulse Resp BP 97 F L 91 18 122/78 H 11/27/19 09:37 11/27/19 09:37 11/27/19 09:37 11/27/19 09:37 General: Alert, Oriented x3, Cooperative, No apparent distress Extremities: Capillary Refill Less than 3 Seconds, No Calf Tenderness - Negative Lakisha and Hough signs, Diminished Peripheral Pulses, Edema - Mild lower extremity edema Skin: Ulcer/ Wound - Ulcers to left medial ankle with fat layer exposed. The base continues to be a mixture of devitalized subcutaneous tissue, slough, fibrin, continued increasing granular tissue, biofilm, as well as some surrounding hyperkeratotic tissue. There continues to be no probing to bone, no tracking, no undermining, no surrounding or extending cellulitis, no purulence, no malodor, no increase in warmth to the ulcer site. Moderate to heavy drainage noted. Wound Measurements and Assessment WC - Nurse 1 - General Ulcer Measurement Start: 10/30/19 09:34 Freq: Status: Active Protocol: Activity Type Activity Date Activity User E-Sign Co-Sign Detail Recorded Client Recorded Date Recorded By Document 11/27/19 09:37 DL [id number] 11/27/19 09:49 DL 11/27/19 09:37 Wound Center Nurse 1 [Ulcer Assessment] #12 Medial Superior LLE -Current Size (cm) - Length 4.4 -Current Size (cm) - Width 5.8 -Current Size (cm) - Depth 0.2 -Total Square Cm 25.52 -Photo Taken No -Exudate Amt Small -Exudate Type Serosanguineous -Wound Margin Distinct, Outline Attached -Granulation Amt Large (67-100%) -Granulation Quality Red -Necrosis Amt Small (1-33%) -Necrotic Tissue Type Adherent Slough -Structure Exposed N/A -Texture (Ara-wound Skin Appearance) Scarring -Moisture (Aar-wound Skin Appearance Dry/Scaly ) -Color (Ara-wound Skin Appearance) Hemosiderin Staining -Temperature (Ara-wound Skin No Abnormality Appearance) (Pt Warm) -Tenderness on Palpation (Ara-wound No Skin Appearance) -Ulcer Cleansing Wound Cleanser -Foul Odor after Cleansing No -Anesthetic Used 4% Lidocaine Solution #11 Medial Inferior LLE -Current Size (cm) - Length 4 -Current Size (cm) - Width 4 -Current Size (cm) - Depth 0.2 -Total Square Cm 16 -Photo Taken No -Exudate Amt Small -Exudate Type Serosanguineous -Wound Margin Distinct, Outline Attached -Granulation Amt Large (67-100%) -Granulation Quality Red -Necrosis Amt Small (1-33%) -Necrotic Tissue Type Adherent Slough -Structure Exposed N/A -Texture (Ara-wound Skin Appearance) Scarring -Moisture (Ara-wound Skin Appearance Dry/Scaly ) -Color (Ara-wound Skin Appearance) Hemosiderin Staining -Temperature (Ara-wound Skin No Abnormality Appearance) (Pt Warm) -Tenderness on Palpation (Ara-wound No Skin Appearance) -Ulcer Cleansing Wound Cleanser -Foul Odor after Cleansing No -Anesthetic Used 4% Lidocaine Solution #10 Left Medial Ankle -Current Size (cm) - Length 4.5 -Current Size (cm) - Width 3 -Current Size (cm) - Depth 0.2 -Total Square Cm 13.5 -Photo Taken No -Exudate Amt Small -Exudate Type Serosanguineous -Wound Margin Distinct, Outline Attached -Granulation Amt Large (67-100%) -Granulation Quality Red -Necrosis Amt Small (1-33%) -Necrotic Tissue Type Adherent Slough -Structure Exposed N/A -Texture (Ara-wound Skin Appearance) Scarring -Moisture (Ara-wound Skin Appearance Dry/Scaly ) -Color (Ara-wound Skin Appearance) Hemosiderin Staining -Temperature (Ara-wound Skin No Abnormality Appearance) (Pt Warm) -Ulcer Cleansing Wound Cleanser -Foul Odor after Cleansing No -Anesthetic Used 4% Lidocaine Solution [Edema Assessment] -Left Calf (cm) 34 -Left Ankle (cm) 22.5 WC - Nurse 2 - General Ulcer CM Notes Start: 10/30/19 09:34 Freq: Status: Active Protocol: Activity Type Activity Date Activity User E-Sign Co-Sign Detail Recorded Client Recorded Date Recorded By Document 11/27/19 10:03 DV [id number] 11/27/19 10:12 DV 11/27/19 10:03 Wound Center Nurse 2 [Procedure/Treatment] #12 Medial Superior LLE -Time 10:04 -Correct Patient Yes -Correct Side, Site, Position Yes -Correct Procedure Yes -Procedure Performed Yes -Type of Procedure Debridement -Clinical Debridement Subcutaneous -Post Debridement Size (cm) - Length 4.4 -Post Debridement Size (cm) - Width 5.8 -Post Debridement Size (cm) - Depth 0.2 -Total Square Cm 25.52 -Wound/Ulcer Outcome Not Healed -Ulcer Cleansing Rinsed/ Irrigated with Saline -Foul Odor after Cleansing No -Bioengineered Tissue No -Bleeding Controlled with Pressure -Offloading No -Treatment Response Procedure Tolerated Well #11 Medial Inferior LLE -Time 10:05 -Correct Patient Yes -Correct Side, Site, Position Yes -Correct Procedure Yes -Procedure Performed Yes -Type of Procedure Debridement -Clinical Debridement Subcutaneous -Post Debridement Size (cm) - Length 4.4 -Post Debridement Size (cm) - Width 3.8 -Post Debridement Size (cm) - Depth 0.2 -Total Square Cm 16.72 -Wound/Ulcer Outcome Not Healed -Ulcer Cleansing Rinsed/ Irrigated with Saline -Foul Odor after Cleansing No -Bioengineered Tissue No -Bleeding Controlled with Pressure -Offloading No -Treatment Response Procedure Tolerated Well #10 Left Medial Ankle -Time 10:06 -Correct Patient Yes -Correct Side, Site, Position Yes -Correct Procedure Yes -Procedure Performed Yes -Type of Procedure Debridement -Clinical Debridement Subcutaneous -Post Debridement Size (cm) - Length 4.2 -Post Debridement Size (cm) - Width 4.0 -Post Debridement Size (cm) - Depth 0.2 -Total Square Cm 16.80 -Wound/Ulcer Outcome Not Healed -Ulcer Cleansing Rinsed/ Irrigated with Saline -Foul Odor after Cleansing No -Bioengineered Tissue No -Bleeding Controlled with Pressure -Offloading No -Treatment Response Procedure Tolerated Well [See Physician Procedure note for Specifics] Pain Scale: 0-10 Numeric [Pain] -Is Patient Pain Free? Yes Musculoskeletal: Tenderness - Some minor tenderness in certain areas of each of the noted ulcer sites Neurological: Sensory exam intact to light touch and pain - Along with areas of altered/decreased sensation to lower extremities Psych/Mental Status: Normal Affect, Appropriate Debridement Note Post-Debridement Measurements/Treatment WC - Nurse 2 - General Ulcer CM Notes Start: 10/30/19 09:34 Freq: Status: Active Protocol: Activity Type Activity Date Activity User E-Sign Co-Sign Detail Recorded Client Recorded Date Recorded By Document 10/30/19 10:24 DV [id number] 10/30/19 10:28 DV Document 11/06/19 09:35 DV [id number] 11/06/19 09:45 DV Document 11/13/19 09:45 DV [id number] 11/13/19 09:50 DV Document 11/20/19 10:30 DV [id number] 11/20/19 10:35 DV Document 11/27/19 10:03 DV [id number] 11/27/19 10:12 DV 10/30/19 11/06/19 11/13/19 10:24 09:35 09:45 Wound Center Nurse 2 #12 Medial Superior LLE -Time 09:41 09:46 -Correct Patient Yes Yes -Correct Side, Site, Position Yes Yes -Correct Procedure Yes Yes -Procedure Performed Yes Yes -Type of Procedure Debridement Debridement -Clinical Debridement Subcutaneous Subcutaneous -Post Debridement Size (cm) - Length 5.0 5.0 -Post Debridement Size (cm) - Width 6.0 6.0 -Post Debridement Size (cm) - Depth 0.2 0.2 -Total Square Cm 30.00 30.00 -Wound/Ulcer Outcome Not Healed Not Healed -Ulcer Cleansing Rinsed/ Rinsed/ Irrigated with Irrigated with Saline Saline -Foul Odor after Cleansing No No -Bioengineered Tissue No No -Bleeding Controlled with Pressure Pressure -Offloading No No -Treatment Response Procedure Procedure Tolerated Well Tolerated Well #11 Medial Inferior LLE -Time 09:40 09:47 -Correct Patient Yes Yes -Correct Side, Site, Position Yes Yes -Correct Procedure Yes Yes -Procedure Performed Yes Yes -Type of Procedure Debridement Debridement -Clinical Debridement Subcutaneous Subcutaneous -Post Debridement Size (cm) - Length 4.5 4.3 -Post Debridement Size (cm) - Width 3.8 3.7 -Post Debridement Size (cm) - Depth 0.2 0.3 -Total Square Cm 17.10 15.91 -Wound/Ulcer Outcome Not Healed Not Healed -Ulcer Cleansing Rinsed/ Rinsed/ Irrigated with Irrigated with Saline Saline -Foul Odor after Cleansing No No -Bioengineered Tissue No No -Bleeding Controlled with Pressure Pressure -Offloading No No -Treatment Response Procedure Procedure Tolerated Well Tolerated Well #10 Left Medial Ankle -Time 09:38 09:48 -Correct Patient Yes Yes -Correct Side, Site, Position Yes Yes -Correct Procedure Yes Yes -Procedure Performed Yes Yes -Type of Procedure Debridement Debridement -Clinical Debridement Subcutaneous Subcutaneous -Post Debridement Size (cm) - Length 4.5 4.3 -Post Debridement Size (cm) - Width 4.0 3.7 -Post Debridement Size (cm) - Depth 0.3 0.2 -Total Square Cm 18.00 15.91 -Wound/Ulcer Outcome Not Healed Not Healed -Ulcer Cleansing Rinsed/ Rinsed/ Irrigated with Irrigated with Saline Saline -Foul Odor after Cleansing No No -Bioengineered Tissue No No -Bleeding Controlled with Pressure Pressure -Offloading No No -Treatment Response Procedure Procedure Tolerated Well Tolerated Well #9- LLE WOUND CLUSTER -Time 10:31 09:36 -Correct Patient Yes Yes -Correct Side, Site, Position Yes Yes -Correct Procedure Yes No -Procedure Performed Yes No -Type of Procedure Debridement -Clinical Debridement Subcutaneous -Post Debridement Size (cm) - Length 23.0 0 -Post Debridement Size (cm) - Width 10.0 0 -Post Debridement Size (cm) - Depth 0.3 0 -Total Square Cm 230.00 0 -Wound/Ulcer Outcome Not Healed Converted -Ulcer Cleansing Rinsed/ Irrigated with Saline -Foul Odor after Cleansing No -Bioengineered Tissue No -Bleeding Controlled with Pressure -Offloading No -Treatment Response Procedure Tolerated Well Pain Scale: 0-10 Numeric Is Patient Pain Free? Yes Yes Yes 11/20/19 11/27/19 10:30 10:03 Wound Center Nurse 2 #12 Medial Superior LLE -Time 10:30 10:04 -Correct Patient Yes Yes -Correct Side, Site, Position Yes Yes -Correct Procedure Yes Yes -Procedure Performed Yes Yes -Type of Procedure Debridement Debridement -Clinical Debridement Subcutaneous Subcutaneous -Post Debridement Size (cm) - Length 4.6 4.4 -Post Debridement Size (cm) - Width 6.0 5.8 -Post Debridement Size (cm) - Depth 0.2 0.2 -Total Square Cm 27.60 25.52 -Wound/Ulcer Outcome Not Healed Not Healed -Ulcer Cleansing Rinsed/ Irrigated with Saline -Foul Odor after Cleansing No -Bioengineered Tissue No -Bleeding Controlled with Pressure -Offloading No -Treatment Response Procedure Tolerated Well #11 Medial Inferior LLE -Time 10:33 10:05 -Correct Patient Yes Yes -Correct Side, Site, Position Yes Yes -Correct Procedure Yes Yes -Procedure Performed Yes Yes -Type of Procedure Debridement Debridement -Clinical Debridement Subcutaneous Subcutaneous -Post Debridement Size (cm) - Length 4.3 4.4 -Post Debridement Size (cm) - Width 3.9 3.8 -Post Debridement Size (cm) - Depth 0.2 0.2 -Total Square Cm 16.77 16.72 -Wound/Ulcer Outcome Not Healed Not Healed -Ulcer Cleansing Rinsed/ Irrigated with Saline -Foul Odor after Cleansing No -Bioengineered Tissue No -Bleeding Controlled with Pressure -Offloading No -Treatment Response Procedure Tolerated Well #10 Left Medial Ankle -Time 10:34 10:06 -Correct Patient Yes Yes -Correct Side, Site, Position Yes Yes -Correct Procedure Yes Yes -Procedure Performed Yes Yes -Type of Procedure Debridement Debridement -Clinical Debridement Subcutaneous Subcutaneous -Post Debridement Size (cm) - Length 4.2 4.2 -Post Debridement Size (cm) - Width 4.0 4.0 -Post Debridement Size (cm) - Depth 0.2 0.2 -Total Square Cm 16.80 16.80 -Wound/Ulcer Outcome Not Healed Not Healed -Ulcer Cleansing Rinsed/ Irrigated with Saline -Foul Odor after Cleansing No -Bioengineered Tissue No -Bleeding Controlled with Pressure -Offloading No -Treatment Response Procedure Tolerated Well #9- LLE WOUND CLUSTER -Time -Correct Patient -Correct Side, Site, Position -Correct Procedure -Procedure Performed -Type of Procedure -Clinical Debridement -Post Debridement Size (cm) - Length -Post Debridement Size (cm) - Width -Post Debridement Size (cm) - Depth -Total Square Cm -Wound/Ulcer Outcome -Ulcer Cleansing -Foul Odor after Cleansing -Bioengineered Tissue -Bleeding Controlled with -Offloading -Treatment Response Pain Scale: 0-10 Numeric Is Patient Pain Free? Yes Wound debrided: Left medial ankle Laterality: Left Type of Debridement: Excisional debridement Anesthesia Used: 4% Lidocaine Solution Depth: in the subcutaneous layer Percentage of wound debrided: 100 Instrument Used: 7mm curette Tissue Removed: Devitalized subcutaneous tissue, adherent slough, fibrin, biofilm Severity: Fat Layer Exposed Amount of bleeding with debridement: Mild Bleeding Controlled with: Pressure Patient tolerated procedure well - Additional Wound Wound debrided: Left lower leg inferior Laterality: Left Type of Debridement: Excisional debridement Anesthesia Used: 4% Lidocaine Solution Depth: in the subcutaneous layer Percentage of wound debrided: 100 Instrument Used: 7mm curette Tissue Removed: Devitalized subcutaneous tissue, adherent slough, fibrin, biofilm Severity: Fat Layer Exposed Amount of bleeding with debridement: Mild Bleeding Controlled with: Pressure Patient tolerated procedure: Patient tolerated procedure well - Additional Wound Wound debrided: Left lower leg superior Laterality: Left Type of Debridement: Excisional debridement Anesthesia Used: 4% Lidocaine Solution Depth: in the subcutaneous layer Percentage of wound debrided: 100 Instrument Used: 7mm curette Tissue Removed: Devitalized subcutaneous tissue, adherent slough, fibrin, biofilm Severity: Fat Layer Exposed Amount of bleeding with debridement: Mild Bleeding Controlled with: Pressure Patient tolerated procedure: Patient tolerated procedure well Assessment/Plan Assessment: Chronic left leg ulcer. Venous insufficiency. Leg edema. Delayed healing. Malnutrition suspected. Noncompliance. Continued smoking habits. Bacterial colonization and contamination is suspected Plan: Patient examined again today for left lower extremity ulcers. Very minor improvement noted again today. Another subcutaneous debridement was performed as noted in the clinical panel again today to each site. The bases were dressed with Aquacel Ag, followed by adaptic, and a dry sterile absorptive dressing. Patient is to continue with compression stockings as prescribed by Dr. Cade. Patient has been noncompliant with wearing compression as instructed. Patient had MRI taken previously as well and impression was read by radiologist is showing no signs of osteomyelitis, however there was a large venous varicosity seen within the subcutaneous tissue in the region of ulcer site. Full detailed report is in the patient's chart. Patient unable to tolerate almost every other dressing that has been tried to this date other than hydrofera blue and Aquacel Ag. The patient was referred to dermatology for a consult and biopsy of ulcer site to gain further information in the past as well. Biopsy results showed diagnosis as read by the lab: stasis dermatitis with an overlying cutaneous ulceration and reactive epidermal hyperplasia. They noted that the changes seen here are consistent with clinical impression of venous ulcer with reactive epidermal changes. Multiple deeper sections were examined. A PAS stain for fungal elements was negative. The entire path report will be in the patient's chart. He says he is unable to completely stop working, but he does have the option for light duty. Patient had a second injection procedure performed last week with Dr. Cade. He is to continue with prescribed thigh-high compression stockings by Dr. Cade. I stressed the importance of keeping pressure completely off of the ulcer and how this will impact his healing potential. Patient was instructed to be off his feet as much as possible and to keep the lower extremities elevated while not at work. The importance of compression was also discussed with this patient today. I continue to recommend nutritional supplementation with a high-protein diet at this time in order to help optimize ulcer healing potential. The patient continues to state that he has stopped smoking since his most recent vascular procedure. Patient also saw Dr. Spencer as a consult in the past as well, who offered the patient a surgical debridement with advanced wound graft placement, but patient denied this option. Patient was again informed that he remains at risk for limb loss. All signs and symptoms of local and systemic infection were discussed in great detail with the patient today and he was instructed to go to the emergency room immediately should he notice any of these. All questions were answered to the patient's satisfaction. Patient will follow back up at the wound healing center in 1 week, but was instructed to follow-up sooner if needed before then.
== END 2019-11-28 23:59 ==
LOC: WC 09:30
PROVIDERS: Referring Provider Podiatrist; Visit Provider Podiatrist
DX: I83.028 Varicose veins of left lower extremity with ulcer other part of lower leg (principal); L97.822 Non-pressure chronic ulcer of other part of left lower leg with fat layer exposed; Z91.19 Patient's noncompliance with other medical treatment and regimen; M79.605 Pain in left leg; Z87.891 Personal history of nicotine dependence; L97.322 Non-pressure chronic ulcer of left ankle with fat layer exposed; R60.0 Localized edema
CPT/HCPCS: 11042; 11045

== ENCOUNTER 2019-12-18 09:15 | Outpatient (RCR) | payer BC, SELFPAY ==
[2019-11-29 00:35] VITALS: BP 122/78; PULSE 91; RESP 18; TEMP 36.1
[2019-12-04 09:36] VITALS: BP 160/95; PULSE 85; RESP 18; TEMP 37.1; BMI 31.4
--- NOTE | 2019-12-04 11:33 | PCM.WC.PN ---
(1) Ulcer of left lower extremity with fat layer exposed Status: Chronic Current Visit: No Code(s): L97.922 - Non-pressure chronic ulcer of unspecified part of left lower leg with fat layer exposed (2) PVD (peripheral vascular disease) Status: Chronic Current Visit: No Code(s): I73.9 - Peripheral vascular disease, unspecified (3) Chronic venous insufficiency Status: Chronic Current Visit: No Code(s): I87.2 - Venous insufficiency (chronic) (peripheral) (4) Edema, lower extremity Status: Chronic Current Visit: No Code(s): R60.0 - Localized edema (5) Pain of left lower extremity Status: Chronic Current Visit: No Code(s): M79.605 - Pain in left leg (6) Delayed wound healing Status: Chronic Current Visit: No Code(s): T14.8XXD - Other injury of unspecified body region, subsequent encounter (7) Non-compliance with treatment Status: Chronic Current Visit: No Code(s): Z91.19 - Patient's noncompliance with other medical treatment and regimen Type of Wound Date of Service: 12/04/19 Chief Complaint: ulcers to the left lower leg History of Wound: This is a 54-year-old male presents to wound healing center with a long-standing history of chronic venous insufficiency, chronic venous hypertension, lower extremity edema, lower extremity pain, and chronic left lower extremity ulcer. The patient has previously undergone endovenous laser ablation of the left and right great saphenous vein, the small saphenous vein, the left accessory saphenous vein, and an incompetent left calf hide examiner vein located 15 cm proximal to the left medial malleolus. He is currently wearing graduated compression stockings which are documented to be 20-30 mmHg compression and these are thigh high. He reports great compliance with use. He is also had previous arterial work-up with no intervention recommended by letter, his vascular surgeon. He denies taking nutritional supplementation. He saw dermatology and had a biopsy of the ulcer site. He also was previously treated by infectious disease for various contaminations and infections. He is not antibiotics at this time nor does he have any redness or odor coming from the wound. He denies fever, chill, nausea, vomiting, loss of appetite. Progress of Wound: Continued very slow improvement. Patient denies any feelings of nausea, vomiting, fever, chills at this time. - Physical Exam Vital Signs Temp Pulse Resp BP 98.7 F 85 18 160/95 H 12/04/19 09:36 12/04/19 09:36 12/04/19 09:36 12/04/19 09:36 General: Alert, Oriented x3, Cooperative, No apparent distress Extremities: Capillary Refill Less than 3 Seconds, No Calf Tenderness - Negative Lakisha and Hough signs, Diminished Peripheral Pulses, Edema - Mild lower extremity edema Skin: Ulcer/ Wound - Ulcers to left medial ankle/lower leg with fat layer exposed. The base continues to be a mixture of devitalized subcutaneous tissue, slough, fibrin, granular tissue, biofilm, as well as some surrounding hyperkeratotic tissue. There continues to be no probing to bone, no tracking, no undermining, no surrounding or extending cellulitis, no purulence, no malodor, no increase in warmth to the ulcer site. Moderate to heavy drainage noted. Wound Measurements and Assessment WC - Nurse 1 - General Ulcer Measurement Start: 12/04/19 09:36 Freq: Status: Active Protocol: Activity Type Activity Date Activity User E-Sign Co-Sign Detail Recorded Client Recorded Date Recorded By Document 12/04/19 09:36 RB [id number] 12/04/19 09:39 RB 12/04/19 09:36 Wound Center Nurse 1 [Ulcer Assessment] #12 Medial Superior LLE -Combined with other wound No -Current Size (cm) - Length 4 -Current Size (cm) - Width 6.1 -Current Size (cm) - Depth 0.1 -Total Square Cm 24.4 -Tunneling No -Undermining/Tunneling No -Circular Undermining No -Exudate Amt Large -Exudate Type Serosanguineous -Wound Margin Thickened & Rolled Under -Granulation Amt Large (67-100%) -Granulation Quality Red -Slough/Fibrin Yes -Necrosis Amt Small (1-33%) -Necrotic Tissue Type Adherent Slough -Structure Exposed N/A -Texture (Ara-wound Skin Appearance) Assessed, Scarring -Moisture (Ara-wound Skin Appearance Assessed,Dry/ ) Scaly -Color (Ara-wound Skin Appearance) Assessed -Temperature (Ara-wound Skin No Abnormality Appearance) (Pt Warm) -Tenderness on Palpation (Ara-wound No Skin Appearance) -Ulcer Cleansing Wound Cleanser -Foul Odor after Cleansing No -Anesthetic Used 4% Lidocaine Solution #11 Medial Inferior LLE -Combined with other wound No -Current Size (cm) - Length 5 -Current Size (cm) - Width 4.3 -Current Size (cm) - Depth 0.1 -Total Square Cm 21.5 -Tunneling No -Undermining/Tunneling No -Circular Undermining No -Exudate Amt Large -Exudate Type Serosanguineous -Wound Margin Thickened & Rolled Under -Granulation Amt Large (67-100%) -Granulation Quality [place],Red -Slough/Fibrin Yes -Necrosis Amt Small (1-33%) -Necrotic Tissue Type Adherent Slough -Structure Exposed N/A -Texture (Ara-wound Skin Appearance) Scarring -Moisture (Ara-wound Skin Appearance Assessed ) -Color (Ara-wound Skin Appearance) Assessed -Temperature (Ara-wound Skin No Abnormality Appearance) (Pt Warm) -Tenderness on Palpation (Ara-wound No Skin Appearance) -Ulcer Cleansing Wound Cleanser -Foul Odor after Cleansing No -Anesthetic Used 4% Lidocaine Solution #10 Left Medial Ankle -Combined with other wound No -Current Size (cm) - Length 4.5 -Current Size (cm) - Width 3.6 -Current Size (cm) - Depth 0.2 -Total Square Cm 16.20 -Tunneling No -Undermining/Tunneling No -Circular Undermining No -Exudate Amt Large -Exudate Type Serosanguineous -Wound Margin Thickened & Rolled Under -Granulation Amt Large (67-100%) -Granulation Quality [place],Red -Necrosis Amt Small (1-33%) -Necrotic Tissue Type Adherent Slough -Structure Exposed N/A -Texture (Ara-wound Skin Appearance) Scarring -Moisture (Ara-wound Skin Appearance Assessed ) -Color (Ara-wound Skin Appearance) Assessed -Temperature (Ara-wound Skin No Abnormality Appearance) (Pt Warm) -Tenderness on Palpation (Ara-wound No Skin Appearance) -Ulcer Cleansing Wound Cleanser -Foul Odor after Cleansing No -Anesthetic Used 4% Lidocaine Solution [Edema Assessment] -Lower Limb Edema Present Yes -Left Calf (cm) 37 -Left Ankle (cm) 23 WC - Nurse 2 - General Ulcer CM Notes Start: 12/04/19 09:36 Freq: Status: Active Protocol: Activity Type Activity Date Activity User E-Sign Co-Sign Detail Recorded Client Recorded Date Recorded By Document 12/04/19 09:54 DV [id number] 12/04/19 10:01 DV 12/04/19 09:54 Wound Center Nurse 2 [Procedure/Treatment] #12 Medial Superior LLE -Time 09:55 -Correct Patient Yes -Correct Side, Site, Position Yes -Correct Procedure Yes -Procedure Performed Yes -Type of Procedure Debridement -Clinical Debridement Subcutaneous -Post Debridement Size (cm) - Length 4.5 -Post Debridement Size (cm) - Width 5.9 -Post Debridement Size (cm) - Depth 0.2 -Total Square Cm 26.55 -Wound/Ulcer Outcome Not Healed -Ulcer Cleansing Rinsed/ Irrigated with Saline -Foul Odor after Cleansing No -Bioengineered Tissue No -Bleeding Controlled with Pressure -Offloading No -Treatment Response Procedure Tolerated Well #11 Medial Inferior LLE -Time 09:55 -Correct Patient Yes -Correct Side, Site, Position Yes -Correct Procedure Yes -Procedure Performed Yes -Type of Procedure Debridement -Clinical Debridement Subcutaneous -Post Debridement Size (cm) - Length 4.3 -Post Debridement Size (cm) - Width 3.9 -Post Debridement Size (cm) - Depth 0.2 -Total Square Cm 16.77 -Wound/Ulcer Outcome Not Healed -Ulcer Cleansing Rinsed/ Irrigated with Saline -Foul Odor after Cleansing No -Bioengineered Tissue No -Bleeding Controlled with Pressure -Offloading No -Treatment Response Procedure Tolerated Well #10 Left Medial Ankle -Time 09:56 -Correct Patient Yes -Correct Side, Site, Position Yes -Correct Procedure Yes -Procedure Performed Yes -Type of Procedure Debridement -Clinical Debridement Subcutaneous -Post Debridement Size (cm) - Length 4.0 -Post Debridement Size (cm) - Width 3.7 -Post Debridement Size (cm) - Depth 0.2 -Total Square Cm 14.80 -Wound/Ulcer Outcome Not Healed -Ulcer Cleansing Rinsed/ Irrigated with Saline -Foul Odor after Cleansing No -Bioengineered Tissue No -Bleeding Controlled with Pressure -Offloading No -Treatment Response Procedure Tolerated Well [See Physician Procedure note for Specifics] Pain Scale: 0-10 Numeric [Pain] -Is Patient Pain Free? Yes Musculoskeletal: Tenderness - Some minor tenderness in certain areas of each of the ulcer sites Neurological: Sensory exam intact to light touch and pain - Along with areas of altered/decreased sensation to lower extremities Psych/Mental Status: Normal Affect, Appropriate Debridement Note Post-Debridement Measurements/Treatment WC - Nurse 2 - General Ulcer CM Notes Start: 12/04/19 09:36 Freq: Status: Active Protocol: Activity Type Activity Date Activity User E-Sign Co-Sign Detail Recorded Client Recorded Date Recorded By Document 12/04/19 09:54 DV [id number] 12/04/19 10:01 DV 12/04/19 09:54 Wound Center Nurse 2 #12 Medial Superior LLE -Time 09:55 -Correct Patient Yes -Correct Side, Site, Position Yes -Correct Procedure Yes -Procedure Performed Yes -Type of Procedure Debridement -Clinical Debridement Subcutaneous -Post Debridement Size (cm) - Length 4.5 -Post Debridement Size (cm) - Width 5.9 -Post Debridement Size (cm) - Depth 0.2 -Total Square Cm 26.55 -Wound/Ulcer Outcome Not Healed -Ulcer Cleansing Rinsed/ Irrigated with Saline -Foul Odor after Cleansing No -Bioengineered Tissue No -Bleeding Controlled with Pressure -Offloading No -Treatment Response Procedure Tolerated Well #11 Medial Inferior LLE -Time 09:55 -Correct Patient Yes -Correct Side, Site, Position Yes -Correct Procedure Yes -Procedure Performed Yes -Type of Procedure Debridement -Clinical Debridement Subcutaneous -Post Debridement Size (cm) - Length 4.3 -Post Debridement Size (cm) - Width 3.9 -Post Debridement Size (cm) - Depth 0.2 -Total Square Cm 16.77 -Wound/Ulcer Outcome Not Healed -Ulcer Cleansing Rinsed/ Irrigated with Saline -Foul Odor after Cleansing No -Bioengineered Tissue No -Bleeding Controlled with Pressure -Offloading No -Treatment Response Procedure Tolerated Well #10 Left Medial Ankle -Time 09:56 -Correct Patient Yes -Correct Side, Site, Position Yes -Correct Procedure Yes -Procedure Performed Yes -Type of Procedure Debridement -Clinical Debridement Subcutaneous -Post Debridement Size (cm) - Length 4.0 -Post Debridement Size (cm) - Width 3.7 -Post Debridement Size (cm) - Depth 0.2 -Total Square Cm 14.80 -Wound/Ulcer Outcome Not Healed -Ulcer Cleansing Rinsed/ Irrigated with Saline -Foul Odor after Cleansing No -Bioengineered Tissue No -Bleeding Controlled with Pressure -Offloading No -Treatment Response Procedure Tolerated Well Pain Scale: 0-10 Numeric Is Patient Pain Free? Yes Wound debrided: Left medial ankle Laterality: Left Type of Debridement: Excisional debridement Anesthesia Used: 4% Lidocaine Solution Depth: in the subcutaneous layer Percentage of wound debrided: 100 Instrument Used: 7mm curette Tissue Removed: Devitalized subcutaneous tissue, adherent slough, fibrin, biofilm Severity: Fat Layer Exposed Amount of bleeding with debridement: Mild Bleeding Controlled with: Pressure Patient tolerated procedure well - Additional Wound Wound debrided: Left lower leg inferior Laterality: Left Type of Debridement: Excisional debridement Anesthesia Used: 4% Lidocaine Solution Depth: in the subcutaneous layer Percentage of wound debrided: 100 Instrument Used: 7mm curette Tissue Removed: Devitalized subcutaneous tissue, adherent slough, fibrin, biofilm Severity: Fat Layer Exposed Amount of bleeding with debridement: Mild Bleeding Controlled with: Pressure Patient tolerated procedure: Patient tolerated procedure well - Additional Wound Wound debrided: Left lower leg superior Laterality: Left Type of Debridement: Excisional debridement Anesthesia Used: 4% Lidocaine Solution Depth: in the subcutaneous layer Percentage of wound debrided: 100 Instrument Used: 7mm curette Tissue Removed: Devitalized subcutaneous tissue, adherent slough, fibrin, biofilm Severity: Fat Layer Exposed Amount of bleeding with debridement: Mild Bleeding Controlled with: Pressure Patient tolerated procedure: Patient tolerated procedure well Assessment/Plan Assessment: Chronic left leg ulcer. Venous insufficiency. Leg edema. Delayed healing. Malnutrition suspected. Noncompliance. Continued smoking habits. Bacterial colonization and contamination is suspected Plan: Patient examined again today for left lower extremity ulcers. Continued very slow improvement noted. A subcutaneous debridement was performed as noted in the clinical panel again today to each site. The bases were dressed with Aquacel Ag, followed by adaptic, and a dry sterile absorptive dressing. Patient is to continue with compression stockings as prescribed by Dr. Cade. Patient has been noncompliant with wearing compression as instructed. Patient had MRI taken previously as well and impression was read by radiologist is showing no signs of osteomyelitis, however there was a large venous varicosity seen within the subcutaneous tissue in the region of ulcer site. Full detailed report is in the patient's chart. Patient unable to tolerate almost every other dressing that has been tried to this date other than hydrofera blue and Aquacel Ag. The patient was referred to dermatology for a consult and biopsy of ulcer site to gain further information in the past as well. Biopsy results showed diagnosis as read by the lab: stasis dermatitis with an overlying cutaneous ulceration and reactive epidermal hyperplasia. They noted that the changes seen here are consistent with clinical impression of venous ulcer with reactive epidermal changes. Multiple deeper sections were examined. A PAS stain for fungal elements was negative. The entire path report will be in the patient's chart. He says he is unable to completely stop working, but he does have the option for light duty. Patient had a second injection procedure performed last week with Dr. Cade. He is to continue with prescribed thigh-high compression stockings by Dr. Cade. I stressed the importance of keeping pressure completely off of the ulcer and how this will impact his healing potential. Patient was instructed to be off his feet as much as possible and to keep the lower extremities elevated while not at work. The importance of compression was also discussed with this patient today. I continue to recommend nutritional supplementation with a high-protein diet at this time in order to help optimize ulcer healing potential. The patient continues to state that he has stopped smoking since his most recent vascular procedure. Patient also saw Dr. Spencer as a consult in the past as well, who offered the patient a surgical debridement with advanced wound graft placement, but patient denied this option. Patient was again informed that he remains at risk for limb loss. All signs and symptoms of local and systemic infection were discussed in great detail with the patient today and he was instructed to go to the emergency room immediately should he notice any of these. All questions were answered to the patient's satisfaction. Patient will follow back up at the wound healing center in 1 week, but was instructed to follow-up sooner if needed before then.
[2019-12-18 09:26] VITALS: BP 140/90; PULSE 83; RESP 18; TEMP 37.4; BMI 31.4
--- NOTE | 2019-12-18 10:01 | PCM.WC.PN ---
(1) Ulcer of left lower extremity with fat layer exposed Status: Chronic Current Visit: No Code(s): L97.922 - Non-pressure chronic ulcer of unspecified part of left lower leg with fat layer exposed (2) PVD (peripheral vascular disease) Status: Chronic Current Visit: No Code(s): I73.9 - Peripheral vascular disease, unspecified (3) Chronic venous insufficiency Status: Chronic Current Visit: No Code(s): I87.2 - Venous insufficiency (chronic) (peripheral) (4) Edema, lower extremity Status: Chronic Current Visit: No Code(s): R60.0 - Localized edema (5) Pain of left lower extremity Status: Chronic Current Visit: No Code(s): M79.605 - Pain in left leg (6) Delayed wound healing Status: Chronic Current Visit: No Code(s): T14.8XXD - Other injury of unspecified body region, subsequent encounter (7) Non-compliance with treatment Status: Chronic Current Visit: No Code(s): Z91.19 - Patient's noncompliance with other medical treatment and regimen Type of Wound Date of Service: 12/18/19 Chief Complaint: ulcers to the left lower leg History of Wound: This is a 54-year-old male presents to wound healing center with a long-standing history of chronic venous insufficiency, chronic venous hypertension, lower extremity edema, lower extremity pain, and chronic left lower extremity ulcer. The patient has previously undergone endovenous laser ablation of the left and right great saphenous vein, the small saphenous vein, the left accessory saphenous vein, and an incompetent left calf transportation associate vein located 15 cm proximal to the left medial malleolus. He is currently wearing graduated compression stockings which are documented to be 20-30 mmHg compression and these are thigh high. He reports great compliance with use. He is also had previous arterial work-up with no intervention recommended by letter, his vascular surgeon. He denies taking nutritional supplementation. He saw dermatology and had a biopsy of the ulcer site. He also was previously treated by infectious disease for various contaminations and infections. He is not antibiotics at this time nor does he have any redness or odor coming from the wound. He denies fever, chill, nausea, vomiting, loss of appetite. Progress of Wound: Ulcer stable today after patient missed appointment last week. Patient denies any feelings of nausea, vomiting, fever, chills at this time. - Physical Exam Vital Signs Temp Pulse Resp BP 99.3 F H 83 18 140/90 H 12/18/19 09:26 12/18/19 09:26 12/18/19 09:26 12/18/19 09:26 General: Alert, Oriented x3, Cooperative, No apparent distress Extremities: Capillary Refill Less than 3 Seconds, No Calf Tenderness - Negative Lakisha and Hough signs, Diminished Peripheral Pulses, Edema - Mild lower extremity edema Skin: Ulcer/ Wound - Ulcers to left medial ankle/lower leg with fat layer exposed. The base of each ulcer continues to be a mixture of devitalized subcutaneous tissue, slough, fibrin, granular tissue, biofilm, as well as some surrounding hyperkeratotic tissue. There continues to be no probing to bone, no tracking, no undermining, no surrounding or extending cellulitis, no purulence, no malodor, no increase in warmth to the ulcer site. Moderate to heavy drainage noted. Wound Measurements and Assessment WC - Nurse 1 - General Ulcer Measurement Start: 12/04/19 09:36 Freq: Status: Active Protocol: Activity Type Activity Date Activity User E-Sign Co-Sign Detail Recorded Client Recorded Date Recorded By Document 12/18/19 09:26 DL [id number] 12/18/19 09:38 DL 12/18/19 09:26 Wound Center Nurse 1 [Ulcer Assessment] #12 Medial Superior LLE -Combined with other wound No -Current Size (cm) - Length 3.3 -Current Size (cm) - Width 6.2 -Current Size (cm) - Depth 0.1 -Total Square Cm 20.46 -Photo Taken No -Epithelialization Small 1-33% -Tunneling No -Undermining/Tunneling No -Circular Undermining No -Classification - Thickness Full Thickness without Exposed Support Structure -Exudate Amt Medium -Exudate Type Serous -Wound Margin Flat & Intact -Granulation Amt Medium (34-66%) -Granulation Quality Red -Necrosis Amt Medium (34-66%) -Necrotic Tissue Type Adherent Slough -Structure Exposed None/Limited to Skin Breakdown -Texture (Ara-wound Skin Appearance) Assessed -Moisture (Ara-wound Skin Appearance Assessed ) -Color (Ara-wound Skin Appearance) Assessed -Temperature (Raa-wound Skin No Abnormality Appearance) (Pt Warm) -Tenderness on Palpation (Ara-wound No Skin Appearance) -Foul Odor after Cleansing No -Anesthetic Used 4% Lidocaine Solution #11 Medial Inferior LLE -Combined with other wound No -Current Size (cm) - Length 4.4 -Current Size (cm) - Width 4.0 -Current Size (cm) - Depth 0.1 -Total Square Cm 17.60 -Photo Taken No -Epithelialization Small 1-33% -Tunneling No -Undermining/Tunneling No -Circular Undermining No -Classification - Thickness Full Thickness without Exposed Support Structure -Exudate Amt Medium -Exudate Type Serous -Wound Margin Flat & Intact -Granulation Amt Medium (34-66%) -Granulation Quality Red -Slough/Fibrin Yes -Necrosis Amt Medium (34-66%) -Necrotic Tissue Type Adherent Slough -Structure Exposed None/Limited to Skin Breakdown -Texture (Ara-wound Skin Appearance) Assessed, Scarring -Moisture (Ara-wound Skin Appearance Assessed, ) Weeping -Color (Ara-wound Skin Appearance) No Abnormality, Assessed -Temperature (Ara-wound Skin No Abnormality Appearance) (Pt Warm) -Tenderness on Palpation (Ara-wound No Skin Appearance) -Foul Odor after Cleansing No -Anesthetic Used 4% Lidocaine Solution #10 Left Medial Ankle -Combined with other wound No -Current Size (cm) - Length 4.7 -Current Size (cm) - Width 4.0 -Current Size (cm) - Depth 0.2 -Total Square Cm 18.80 -Photo Taken No -Epithelialization None Present -Tunneling No -Undermining/Tunneling No -Circular Undermining No -Classification - Thickness Full Thickness without Exposed Support Structure -Exudate Amt Medium -Wound Margin Flat & Intact -Granulation Amt Medium (34-66%) -Granulation Quality Red -Slough/Fibrin Yes -Necrosis Amt Medium (34-66%) -Necrotic Tissue Type Adherent Slough -Structure Exposed None/Limited to Skin Breakdown -Texture (Ara-wound Skin Appearance) Assessed, Scarring -Moisture (Ara-wound Skin Appearance Assessed, ) Weeping -Color (Ara-wound Skin Appearance) No Abnormality, Assessed -Temperature (Ara-wound Skin No Abnormality Appearance) (Pt Warm) -Tenderness on Palpation (Ara-wound No Skin Appearance) -Ulcer Cleansing Rinsed/ Irrigated with Saline -Foul Odor after Cleansing No -Anesthetic Used 4% Lidocaine Solution [Edema Assessment] -Lower Limb Edema Present No -Left Calf (cm) 35.0 -Left Ankle (cm) 23.5 WC - Nurse 2 - General Ulcer CM Notes Start: 12/04/19 09:36 Freq: Status: Active Protocol: Activity Type Activity Date Activity User E-Sign Co-Sign Detail Recorded Client Recorded Date Recorded By Document 12/18/19 09:44 DV [id number] 12/18/19 09:56 DV 12/18/19 09:44 Wound Center Nurse 2 [Procedure/Treatment] #12 Medial Superior LLE -Time 09:52 -Correct Patient Yes -Correct Side, Site, Position Yes -Correct Procedure Yes -Procedure Performed Yes -Type of Procedure Debridement -Clinical Debridement Subcutaneous -Post Debridement Size (cm) - Length 4.0 -Post Debridement Size (cm) - Width 5.4 -Post Debridement Size (cm) - Depth 0.2 -Total Square Cm 21.60 -Wound/Ulcer Outcome Not Healed -Ulcer Cleansing Rinsed/ Irrigated with Saline -Foul Odor after Cleansing No -Bioengineered Tissue No -Bleeding Controlled with Pressure -Offloading No -Treatment Response Procedure Tolerated Well #11 Medial Inferior LLE -Time 09:49 -Correct Patient Yes -Correct Side, Site, Position Yes -Correct Procedure Yes -Procedure Performed Yes -Type of Procedure Debridement -Clinical Debridement Subcutaneous -Post Debridement Size (cm) - Length 4.6 -Post Debridement Size (cm) - Width 3.8 -Post Debridement Size (cm) - Depth 0.2 -Total Square Cm 17.48 -Wound/Ulcer Outcome Not Healed -Ulcer Cleansing Rinsed/ Irrigated with Saline -Foul Odor after Cleansing No -Bioengineered Tissue No -Bleeding Controlled with Pressure -Offloading No -Treatment Response Procedure Tolerated Well #10 Left Medial Ankle -Time 09:49 -Correct Patient Yes -Correct Side, Site, Position Yes -Correct Procedure Yes -Procedure Performed Yes -Type of Procedure Debridement -Clinical Debridement Subcutaneous -Post Debridement Size (cm) - Length 4.0 -Post Debridement Size (cm) - Width 3.7 -Post Debridement Size (cm) - Depth 0.2 -Total Square Cm 14.80 -Wound/Ulcer Outcome Not Healed -Bleeding Controlled with Pressure -Offloading No -Treatment Response Procedure Tolerated Well [See Physician Procedure note for Specifics] Pain Scale: 0-10 Numeric [Pain] -Is Patient Pain Free? Yes Musculoskeletal: Tenderness - Some tenderness with manipulation of certain areas of the ulcer sites Neurological: Sensory exam intact to light touch and pain - Along with areas of altered/decreased sensation to lower extremities Psych/Mental Status: Normal Affect, Appropriate Debridement Note Post-Debridement Measurements/Treatment WC - Nurse 2 - General Ulcer CM Notes Start: 12/04/19 09:36 Freq: Status: Active Protocol: Activity Type Activity Date Activity User E-Sign Co-Sign Detail Recorded Client Recorded Date Recorded By Document 12/04/19 09:54 DV [id number] 12/04/19 10:01 DV Document 12/18/19 09:44 DV [id number] 12/18/19 09:56 DV 12/04/19 12/18/19 09:54 09:44 Wound Center Nurse 2 #12 Medial Superior LLE -Time 09:55 09:52 -Correct Patient Yes Yes -Correct Side, Site, Position Yes Yes -Correct Procedure Yes Yes -Procedure Performed Yes Yes -Type of Procedure Debridement Debridement -Clinical Debridement Subcutaneous Subcutaneous -Post Debridement Size (cm) - Length 4.5 4.0 -Post Debridement Size (cm) - Width 5.9 5.4 -Post Debridement Size (cm) - Depth 0.2 0.2 -Total Square Cm 26.55 21.60 -Wound/Ulcer Outcome Not Healed Not Healed -Ulcer Cleansing Rinsed/ Rinsed/ Irrigated with Irrigated with Saline Saline -Foul Odor after Cleansing No No -Bioengineered Tissue No No -Bleeding Controlled with Pressure Pressure -Offloading No No -Treatment Response Procedure Procedure Tolerated Well Tolerated Well #11 Medial Inferior LLE -Time 09:55 09:49 -Correct Patient Yes Yes -Correct Side, Site, Position Yes Yes -Correct Procedure Yes Yes -Procedure Performed Yes Yes -Type of Procedure Debridement Debridement -Clinical Debridement Subcutaneous Subcutaneous -Post Debridement Size (cm) - Length 4.3 4.6 -Post Debridement Size (cm) - Width 3.9 3.8 -Post Debridement Size (cm) - Depth 0.2 0.2 -Total Square Cm 16.77 17.48 -Wound/Ulcer Outcome Not Healed Not Healed -Ulcer Cleansing Rinsed/ Rinsed/ Irrigated with Irrigated with Saline Saline -Foul Odor after Cleansing No No -Bioengineered Tissue No No -Bleeding Controlled with Pressure Pressure -Offloading No No -Treatment Response Procedure Procedure Tolerated Well Tolerated Well #10 Left Medial Ankle -Time 09:56 09:49 -Correct Patient Yes Yes -Correct Side, Site, Position Yes Yes -Correct Procedure Yes Yes -Procedure Performed Yes Yes -Type of Procedure Debridement Debridement -Clinical Debridement Subcutaneous Subcutaneous -Post Debridement Size (cm) - Length 4.0 4.0 -Post Debridement Size (cm) - Width 3.7 3.7 -Post Debridement Size (cm) - Depth 0.2 0.2 -Total Square Cm 14.80 14.80 -Wound/Ulcer Outcome Not Healed Not Healed -Ulcer Cleansing Rinsed/ Irrigated with Saline -Foul Odor after Cleansing No -Bioengineered Tissue No -Bleeding Controlled with Pressure Pressure -Offloading No No -Treatment Response Procedure Procedure Tolerated Well Tolerated Well Pain Scale: 0-10 Numeric Is Patient Pain Free? Yes Yes Wound debrided: Left medial ankle Laterality: Left Type of Debridement: Excisional debridement Anesthesia Used: 4% Lidocaine Solution Depth: in the subcutaneous layer Percentage of wound debrided: 100 Instrument Used: 7mm curette Tissue Removed: Devitalized subcutaneous tissue, adherent slough, fibrin, biofilm Severity: Fat Layer Exposed Amount of bleeding with debridement: Mild Bleeding Controlled with: Pressure Patient tolerated procedure well - Additional Wound Wound debrided: Left lower leg inferior Laterality: Left Type of Debridement: Excisional debridement Anesthesia Used: 4% Lidocaine Solution Depth: in the subcutaneous layer Percentage of wound debrided: 100 Instrument Used: 7mm curette Tissue Removed: Devitalized subcutaneous tissue, adherent slough, fibrin, biofilm Severity: Fat Layer Exposed Amount of bleeding with debridement: Mild Bleeding Controlled with: Pressure Patient tolerated procedure: Patient tolerated procedure well - Additional Wound Wound debrided: Left lower leg superior Laterality: Left Type of Debridement: Excisional debridement Anesthesia Used: 4% Lidocaine Solution Depth: in the subcutaneous layer Percentage of wound debrided: 100 Instrument Used: 7mm curette Tissue Removed: Devitalized subcutaneous tissue, adherent slough, fibrin, biofilm Severity: Fat Layer Exposed Amount of bleeding with debridement: Mild Bleeding Controlled with: Pressure Patient tolerated procedure: Patient tolerated procedure well Assessment/Plan Assessment: Chronic left leg ulcer. Venous insufficiency. Leg edema. Delayed healing. Malnutrition suspected. Noncompliance. Continued smoking habits. Bacterial colonization and contamination is suspected Plan: Patient examined again today for left lower extremity ulcers after missing last week's appointment. Ulcer sites stable today. A subcutaneous debridement was performed as noted in the clinical panel again today to each site. A very minor malodor noted to the most distal ulcer site, but no other signs of local infection are appreciated today. Patient was started on a course of doxycycline and Augmentin and cultures were taken and sent for aerobic, anaerobic, and MRSA PCR evaluation. We will continue to monitor for these results. The bases were dressed with Aquacel Ag, followed by adaptic, and a dry sterile absorptive dressing. Patient is to continue with compression stockings as prescribed by Dr. Cade. Patient has been noncompliant with wearing compression as instructed. Patient had MRI taken previously as well and impression was read by radiologist is showing no signs of osteomyelitis, however there was a large venous varicosity seen within the subcutaneous tissue in the region of ulcer site. Full detailed report is in the patient's chart. Patient unable to tolerate almost every other dressing that has been tried to this date other than hydrofera blue and Aquacel Ag. The patient was referred to dermatology for a consult and biopsy of ulcer site to gain further information in the past as well. Biopsy results showed diagnosis as read by the lab: stasis dermatitis with an overlying cutaneous ulceration and reactive epidermal hyperplasia. They noted that the changes seen here are consistent with clinical impression of venous ulcer with reactive epidermal changes. Multiple deeper sections were examined. A PAS stain for fungal elements was negative. The entire path report will be in the patient's chart. He says he is unable to completely stop working, but he does have the option for light duty. Patient had a second injection procedure performed last week with Dr. Cade. He is to continue with prescribed thigh-high compression stockings by Dr. Cade. I stressed the importance of keeping pressure completely off of the ulcer and how this will impact his healing potential. Patient was instructed to be off his feet as much as possible and to keep the lower extremities elevated while not at work. The importance of compression was also discussed with this patient today. I continue to recommend nutritional supplementation with a high-protein diet at this time in order to help optimize ulcer healing potential. The patient continues to state that he has stopped smoking since his most recent vascular procedure. Patient also saw Dr. Spencer as a consult in the past as well, who offered the patient a surgical debridement with advanced wound graft placement, but patient denied this option. Patient was again informed that he remains at risk for limb loss. All signs and symptoms of local and systemic infection were discussed in great detail with the patient today and he was instructed to go to the emergency room immediately should he notice any of these. All questions were answered to the patient's satisfaction. Patient will follow back up at the wound healing center in 1 week, but was instructed to follow-up sooner if needed before then.
[2019-12-18 13:02] LABS: M R Staph aureus DNA By PCR POSITIVE (Negative); Probe Check PASS; Staph aureus DNA By PCR POSITIVE (Negative)
== END 2019-12-27 23:59 ==
LOC: WC 09:15
PROVIDERS: Referring Provider Podiatrist; Visit Provider Podiatrist
DX: I83.028 Varicose veins of left lower extremity with ulcer other part of lower leg (principal); L97.822 Non-pressure chronic ulcer of other part of left lower leg with fat layer exposed; Z91.19 Patient's noncompliance with other medical treatment and regimen; M79.605 Pain in left leg; Z87.891 Personal history of nicotine dependence; L97.322 Non-pressure chronic ulcer of left ankle with fat layer exposed; R60.0 Localized edema
CPT/HCPCS: 11042; 11045; 87070; 87075; 87077; 87186; 87205; 87640

== ENCOUNTER 2020-01-15 09:00 | Outpatient (RCR) | payer BC, SELFPAY ==
[2019-12-28 00:29] VITALS: BP 140/90; PULSE 83; RESP 18; TEMP 37.4
[2020-01-01 09:24] VITALS: BP 145/82; PULSE 82; RESP 20; TEMP 36.3; BMI 31.4
--- NOTE | 2020-01-01 10:05 | PN.PCM_ITS ---
(1) Ulcer of left lower extremity with fat layer exposed Status: Chronic Current Visit: No Code(s): L97.922 - Non-pressure chronic ulcer of unspecified part of left lower leg with fat layer exposed (2) PVD (peripheral vascular disease) Status: Chronic Current Visit: No Code(s): I73.9 - Peripheral vascular disease, unspecified (3) Chronic venous insufficiency Status: Chronic Current Visit: No Code(s): I87.2 - Venous insufficiency (chronic) (peripheral) (4) Edema, lower extremity Status: Chronic Current Visit: No Code(s): R60.0 - Localized edema (5) Pain of left lower extremity Status: Chronic Current Visit: No Code(s): M79.605 - Pain in left leg (6) Delayed wound healing Status: Chronic Current Visit: No Code(s): T14.8XXD - Other injury of unspecified body region, subsequent encounter (7) Non-compliance with treatment Status: Chronic Current Visit: No Code(s): Z91.19 - Patient's noncompliance with other medical treatment and regimen Type of Wound Date of Service: 01/01/20 Chief Complaint: ulcers to the left lower leg History of Wound: This is a 54-year-old male presents to wound healing center with a long-standing history of chronic venous insufficiency, chronic venous hypertension, lower extremity edema, lower extremity pain, and chronic left lower extremity ulcer. The patient has previously undergone endovenous laser ablation of the left and right great saphenous vein, the small saphenous vein, the left accessory saphenous vein, and an incompetent left calf elect equip maint eng vein located 15 cm proximal to the left medial malleolus. He is currently wearing graduated compression stockings which are documented to be 20-30 mmHg compression and these are thigh high. He reports great compliance with use. He is also had previous arterial work-up with no intervention recommended by letter, his vascular surgeon. He denies taking nutritional supplementation. He saw dermatology and had a biopsy of the ulcer site. He also was previously treated by infectious disease for various contaminations and infections. He is not antibiotics at this time nor does he have any redness or odor coming from the wound. He denies fever, chill, nausea, vomiting, loss of appetite. Progress of Wound: Ulcer shows slight improvement again today after patient missed appointment last week. Patient denies any feelings of nausea, vomiting, fever, chills at this time. - Physical Exam Vital Signs Temp Pulse Resp BP 97.4 F L 82 20 H 145/82 H 01/01/20 09:24 01/01/20 09:24 01/01/20 09:24 01/01/20 09:24 General: Alert, Oriented x3, Cooperative, No apparent distress Extremities: Capillary Refill Less than 3 Seconds, No Calf Tenderness - Negative Lakisha and Hough signs, Diminished Peripheral Pulses, Edema - Mild lower extremity edema Skin: Ulcer/ Wound - Ulcers to left medial ankle/lower leg with fat layer exposed. Minor improvement noted this week. The base of each ulcer continues to be a mixture of devitalized subcutaneous tissue, slough, fibrin, granular tissue, biofilm, as well as some surrounding hyperkeratotic tissue. There continues to be no probing to bone, no tracking, no undermining, no surrounding or extending cellulitis, no purulence, no malodor, no increase in warmth to the ulcer site. Moderate to heavy drainage noted. Wound Measurements and Assessment WC - Nurse 1 - General Ulcer Measurement Start: 01/01/20 09:24 Freq: Status: Active Protocol: Activity Type Activity Date Activity User E-Sign Co-Sign Detail Recorded Client Recorded Date Recorded By Document 01/01/20 09:24 [id number] 01/01/20 09:33 DL 01/01/20 09:24 Wound Center Nurse 1 [Ulcer Assessment] #12 Medial Superior LLE -Current Size (cm) - Length 3 -Current Size (cm) - Width 5.4 -Current Size (cm) - Depth 0.2 -Total Square Cm 16.2 -Photo Taken Yes -Exudate Amt Small -Exudate Type Serosanguineous -Wound Margin Distinct, Outline Attached -Granulation Amt Medium (34-66%) -Granulation Quality Red -Necrosis Amt Medium (34-66%) -Necrotic Tissue Type Adherent Slough -Texture (Ara-wound Skin Appearance) Scarring -Moisture (Ara-wound Skin Appearance Dry/Scaly ) -Color (Ara-wound Skin Appearance) Hemosiderin Staining -Temperature (Ara-wound Skin No Abnormality Appearance) (Pt Warm) -Tenderness on Palpation (Ara-wound No Skin Appearance) -Ulcer Cleansing Wound Cleanser -Foul Odor after Cleansing No -Anesthetic Used 4% Lidocaine Solution #11 Medial Inferior LLE -Current Size (cm) - Length 4.5 -Current Size (cm) - Width 4 -Current Size (cm) - Depth 0.1 -Total Square Cm 18.0 -Photo Taken Yes -Exudate Amt Small -Exudate Type Serosanguineous -Wound Margin Distinct, Outline Attached -Granulation Amt Medium (34-66%) -Granulation Quality Red -Necrosis Amt Medium (34-66%) -Necrotic Tissue Type Adherent Slough -Texture (Ara-wound Skin Appearance) Scarring -Moisture (Ara-wound Skin Appearance Dry/Scaly ) -Color (Ara-wound Skin Appearance) Hemosiderin Staining -Temperature (Ara-wound Skin No Abnormality Appearance) (Pt Warm) -Tenderness on Palpation (Ara-wound No Skin Appearance) -Ulcer Cleansing Wound Cleanser -Foul Odor after Cleansing No -Anesthetic Used 4% Lidocaine Solution #10 Left Medial Ankle -Current Size (cm) - Length 4.6 -Current Size (cm) - Width 3.1 -Current Size (cm) - Depth 0.2 -Total Square Cm 14.26 -Photo Taken Yes -Exudate Amt Small -Exudate Type Serosanguineous -Wound Margin Distinct, Outline Attached -Granulation Amt Medium (34-66%) -Granulation Quality Red -Necrosis Amt Medium (34-66%) -Necrotic Tissue Type Adherent Slough -Structure Exposed N/A -Texture (Ara-wound Skin Appearance) Scarring -Moisture (Ara-wound Skin Appearance Dry/Scaly ) -Color (Ara-wound Skin Appearance) Hemosiderin Staining -Temperature (Ara-wound Skin No Abnormality Appearance) (Pt Warm) -Tenderness on Palpation (Ara-wound No Skin Appearance) -Ulcer Cleansing Wound Cleanser -Foul Odor after Cleansing No -Anesthetic Used 4% Lidocaine Solution [Edema Assessment] -Left Calf (cm) 35.5 -Left Ankle (cm) 23 WC - Nurse 2 - General Ulcer CM Notes Start: 01/01/20 09:24 Freq: Status: Active Protocol: Activity Type Activity Date Activity User E-Sign Co-Sign Detail Recorded Client Recorded Date Recorded By Document 01/01/20 09:55 CARLOS [id number] 01/01/20 10:04 CARLOS 01/01/20 09:55 Wound Center Nurse 2 [Procedure/Treatment] #12 Medial Superior LLE -Time 09:56 -Correct Patient Yes -Correct Side, Site, Position Yes -Correct Procedure Yes -Procedure Performed Yes -Type of Procedure Debridement -Clinical Debridement Subcutaneous -Post Debridement Size (cm) - Length 3.8 -Post Debridement Size (cm) - Width 4.9 -Post Debridement Size (cm) - Depth 0.2 -Total Square Cm 18.62 -Wound/Ulcer Outcome Not Healed -Ulcer Cleansing Rinsed/ Irrigated with Saline -Foul Odor after Cleansing No -Bioengineered Tissue No -Bleeding Controlled with Pressure -Offloading No -Treatment Response Procedure Tolerated Well #11 Medial Inferior LLE -Time 09:56 -Correct Patient Yes -Correct Side, Site, Position Yes -Correct Procedure Yes -Procedure Performed Yes -Type of Procedure Debridement -Clinical Debridement Subcutaneous -Post Debridement Size (cm) - Length 4.6 -Post Debridement Size (cm) - Width 3.8 -Post Debridement Size (cm) - Depth 0.2 -Total Square Cm 17.48 -Wound/Ulcer Outcome Not Healed -Ulcer Cleansing Rinsed/ Irrigated with Saline -Foul Odor after Cleansing No -Bioengineered Tissue No -Bleeding Controlled with Pressure -Offloading No -Treatment Response Procedure Tolerated Well #10 Left Medial Ankle -Time 09:56 -Correct Patient Yes -Correct Side, Site, Position Yes -Correct Procedure Yes -Procedure Performed Yes -Type of Procedure Debridement -Clinical Debridement Subcutaneous -Post Debridement Size (cm) - Length 3.8 -Post Debridement Size (cm) - Width 3.9 -Post Debridement Size (cm) - Depth 0.2 -Total Square Cm 14.82 -Wound/Ulcer Outcome Not Healed -Ulcer Cleansing Rinsed/ Irrigated with Saline -Foul Odor after Cleansing No -Bioengineered Tissue No -Bleeding Controlled with Pressure -Offloading No -Treatment Response Procedure Tolerated Well [See Physician Procedure note for Specifics] Pain Scale: 0-10 Numeric [Pain] -Is Patient Pain Free? Yes Musculoskeletal: Tenderness - Some tenderness with manipulation of certain areas of ulcer sites Neurological: Sensory exam intact to light touch and pain - Along with areas of altered/decreased sensation to lower extremities Psych/Mental Status: Normal Affect, Appropriate Debridement Note Post-Debridement Measurements/Treatment WC - Nurse 2 - General Ulcer CM Notes Start: 01/01/20 09:24 Freq: Status: Active Protocol: Activity Type Activity Date Activity User E-Sign Co-Sign Detail Recorded Client Recorded Date Recorded By Document 01/01/20 09:55 CARLOS [id number] 01/01/20 10:04 CARLOS 01/01/20 09:55 Wound Center Nurse 2 #12 Medial Superior LLE -Time 09:56 -Correct Patient Yes -Correct Side, Site, Position Yes -Correct Procedure Yes -Procedure Performed Yes -Type of Procedure Debridement -Clinical Debridement Subcutaneous -Post Debridement Size (cm) - Length 3.8 -Post Debridement Size (cm) - Width 4.9 -Post Debridement Size (cm) - Depth 0.2 -Total Square Cm 18.62 -Wound/Ulcer Outcome Not Healed -Ulcer Cleansing Rinsed/ Irrigated with Saline -Foul Odor after Cleansing No -Bioengineered Tissue No -Bleeding Controlled with Pressure -Offloading No -Treatment Response Procedure Tolerated Well #11 Medial Inferior LLE -Time 09:56 -Correct Patient Yes -Correct Side, Site, Position Yes -Correct Procedure Yes -Procedure Performed Yes -Type of Procedure Debridement -Clinical Debridement Subcutaneous -Post Debridement Size (cm) - Length 4.6 -Post Debridement Size (cm) - Width 3.8 -Post Debridement Size (cm) - Depth 0.2 -Total Square Cm 17.48 -Wound/Ulcer Outcome Not Healed -Ulcer Cleansing Rinsed/ Irrigated with Saline -Foul Odor after Cleansing No -Bioengineered Tissue No -Bleeding Controlled with Pressure -Offloading No -Treatment Response Procedure Tolerated Well #10 Left Medial Ankle -Time 09:56 -Correct Patient Yes -Correct Side, Site, Position Yes -Correct Procedure Yes -Procedure Performed Yes -Type of Procedure Debridement -Clinical Debridement Subcutaneous -Post Debridement Size (cm) - Length 3.8 -Post Debridement Size (cm) - Width 3.9 -Post Debridement Size (cm) - Depth 0.2 -Total Square Cm 14.82 -Wound/Ulcer Outcome Not Healed -Ulcer Cleansing Rinsed/ Irrigated with Saline -Foul Odor after Cleansing No -Bioengineered Tissue No -Bleeding Controlled with Pressure -Offloading No -Treatment Response Procedure Tolerated Well Pain Scale: 0-10 Numeric Is Patient Pain Free? Yes Wound debrided: Left medial ankle Laterality: Left Type of Debridement: Excisional debridement Anesthesia Used: 4% Lidocaine Solution Depth: in the subcutaneous layer Percentage of wound debrided: 100 Instrument Used: 5mm curette Tissue Removed: Devitalized subcutaneous tissue, adherent slough, fibrin, biofilm Severity: Fat Layer Exposed Amount of bleeding with debridement: Mild Bleeding Controlled with: Pressure Patient tolerated procedure well - Additional Wound Wound debrided: Left lower leg inferior Laterality: Left Type of Debridement: Excisional debridement Anesthesia Used: 4% Lidocaine Solution Depth: in the subcutaneous layer Percentage of wound debrided: 100 Instrument Used: 5mm curette Tissue Removed: Devitalized subcutaneous tissue, adherent slough, fibrin, biofilm Severity: Fat Layer Exposed Amount of bleeding with debridement: Mild Bleeding Controlled with: Pressure Patient tolerated procedure: Patient tolerated procedure well - Additional Wound Wound debrided: Left lower leg superior Laterality: Left Type of Debridement: Excisional debridement Anesthesia Used: 4% Lidocaine Solution Depth: in the subcutaneous layer Percentage of wound debrided: 100 Instrument Used: 5mm curette Tissue Removed: Devitalized subcutaneous tissue, adherent slough, fibrin, biofilm Severity: Fat Layer Exposed Amount of bleeding with debridement: Mild Bleeding Controlled with: Pressure Patient tolerated procedure: Patient tolerated procedure well Assessment/Plan Assessment: Chronic left leg ulcer. Venous insufficiency. Leg edema. Delayed healing. Malnutrition suspected. Noncompliance. Continued smoking habits. Bacterial colonization and contamination is suspected Plan: Patient examined again today for left lower extremity ulcers after missing last week's appointment. Ulcers show slight improvement today. A subcutaneous debridement was performed as noted in the clinical panel again today to each site. Patient finished his antibiotic course without issue. Patient encouraged to schedule his follow-up visit with Dr. Cade's office. The bases were dressed with Aquacel Ag, followed by adaptic, and a dry sterile absorptive dressing. Patient is to continue with compression stockings as prescribed by Dr. Cade. Patient has been noncompliant with wearing compression as instructed. Patient had MRI taken previously as well and impression was read by radiologist is showing no signs of osteomyelitis, however there was a large venous varicosity seen within the subcutaneous tissue in the region of ulcer site. Full detailed report is in the patient's chart. Patient unable to jelani ate almost every other dressing that has been tried to this date other than hydrofera blue and Aquacel Ag. The patient was referred to dermatology for a consult and biopsy of ulcer site to gain further information in the past as well. Biopsy results showed diagnosis as read by the lab: stasis dermatitis with an overlying cutaneous ulceration and reactive epidermal hyperplasia. They noted that the changes seen here are consistent with clinical impression of venous ulcer with reactive epidermal changes. Multiple deeper sections were examined. A PAS stain for fungal elements was negative. The entire path report will be in the patient's chart. He says he is unable to completely stop working, but he does have the option for light duty. Patient had a second injection procedure performed last week with Dr. Cade. He is to continue with prescribed thigh-high compression stockings by Dr. Cade. I stressed the importance of keeping pressure completely off of the ulcer and how this will impact his healing potential. Patient was instructed to be off his feet as much as possible and to keep the lower extremities elevated while not at work. The importance of compression was also discussed with this patient today. I continue to recommend nutritional supplementation with a high-protein diet at this time in order to help optimize ulcer healing potential. The patient continues to state that he has stopped smoking since his most recent vascular procedure. Patient also saw Dr. Spencer as a consult in the past as well, who offered the patient a surgical debridement with advanced wound graft placement, but patient denied this option. Patient was again informed that he remains at risk for limb loss. All signs and symptoms of local and systemic infection were discussed in great detail with the patient today and he was instructed to go to the emergency room immediately should he notice any of these. All questions were answered to the patient's satisfaction. Patient will follow back up at the wound healing center in 1 week, but was instructed to follow-up sooner if needed before then.
[2020-01-08 08:26] VITALS: BP 156/96; PULSE 78; RESP 18; TEMP 36.2; BMI 31.4
--- NOTE | 2020-01-08 09:42 | PCM.WC.PN ---
(1) Ulcer of left lower extremity with fat layer exposed Status: Chronic Current Visit: No Code(s): L97.922 - Non-pressure chronic ulcer of unspecified part of left lower leg with fat layer exposed (2) PVD (peripheral vascular disease) Status: Chronic Current Visit: No Code(s): I73.9 - Peripheral vascular disease, unspecified (3) Chronic venous insufficiency Status: Chronic Current Visit: No Code(s): I87.2 - Venous insufficiency (chronic) (peripheral) (4) Edema, lower extremity Status: Chronic Current Visit: No Code(s): R60.0 - Localized edema (5) Pain of left lower extremity Status: Chronic Current Visit: No Code(s): M79.605 - Pain in left leg (6) Delayed wound healing Status: Chronic Current Visit: No Code(s): T14.8XXD - Other injury of unspecified body region, subsequent encounter (7) Non-compliance with treatment Status: Chronic Current Visit: No Code(s): Z91.19 - Patient's noncompliance with other medical treatment and regimen Type of Wound Date of Service: 01/08/20 Chief Complaint: ulcers to the left lower leg History of Wound: This is a 54-year-old male presents to wound healing center with a long-standing history of chronic venous insufficiency, chronic venous hypertension, lower extremity edema, lower extremity pain, and chronic left lower extremity ulcer. 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 He is currently wearing graduated compression stockings which are documented to be 20-30 mmHg compression and these are thigh high. He reports great compliance with use. He is also had previous arterial work-up with no intervention recommended by letter, his vascular surgeon. He denies taking nutritional supplementation. He saw dermatology and had a biopsy of the ulcer site. He also was previously treated by infectious disease for various contaminations and infections. He is not antibiotics at this time nor does he have any redness or odor coming from the wound. He denies fever, chill, nausea, vomiting, loss of appetite. Progress of Wound: Ulcers overall stable this week. Patient denies any feelings of nausea, vomiting, fever, chills at this time. - Physical Exam Vital Signs Temp Pulse Resp BP 97.2 F L 78 18 156/96 H 01/08/20 08:26 01/08/20 08:26 01/08/20 08:26 01/08/20 08:26 General: Alert, Oriented x3, Cooperative, No apparent distress Extremities: Capillary Refill Less than 3 Seconds, No Calf Tenderness - Negative Lakisha and Hough signs, Diminished Peripheral Pulses, Edema - Mild lower extremity edema Skin: Ulcer/ Wound - Ulcers to left medial ankle/lower leg with fat layer exposed. Ulcer stable. The base of each ulcer continues to be a mixture of devitalized subcutaneous tissue, slough, fibrin, granular tissue, biofilm, as well as some surrounding hyperkeratotic tissue. There continues to be no probing to bone, no tracking, no undermining, no surrounding or extending cellulitis, no purulence, no malodor, no increase in warmth to the ulcer site. Moderate to heavy drainage noted. Wound Measurements and Assessment WC - Nurse 1 - General Ulcer Measurement Start: 01/01/20 09:24 Freq: Status: Active Protocol: Activity Type Activity Date Activity User E-Sign Co-Sign Detail Recorded Client Recorded Date Recorded By Document 01/08/20 08:26 DV [id number] 01/08/20 08:32 DV 01/08/20 08:26 Wound Center Nurse 1 [Ulcer Assessment] #12 Medial Superior LLE -Combined with other wound No -Current Size (cm) - Length 5.2 -Current Size (cm) - Width 3.0 -Current Size (cm) - Depth 0.2 -Total Square Cm 15.60 -Photo Taken No -Epithelialization Small 1-33% -Tunneling No -Undermining/Tunneling No -Circular Undermining No -Classification - Thickness Full Thickness without Exposed Support Structure -Exudate Amt Medium -Exudate Type Serosanguineous -Wound Margin Flat & Intact -Granulation Amt Medium (34-66%) -Granulation Quality Red -Slough/Fibrin Yes -Necrosis Amt Medium (34-66%) -Necrotic Tissue Type Adherent Slough -Structure Exposed None/Limited to Skin Breakdown -Texture (Ara-wound Skin Appearance) No Abnormality, Assessed -Moisture (Ara-wound Skin Appearance No Abnormality, ) Assessed -Color (Ara-wound Skin Appearance) No Abnormality, Assessed -Temperature (Ara-wound Skin No Abnormality Appearance) (Pt Warm) -Ulcer Cleansing Rinsed/ Irrigated with Saline -Foul Odor after Cleansing No -Anesthetic Used 4% Lidocaine Solution #11 Medial Inferior LLE -Combined with other wound No -Current Size (cm) - Length 4.2 -Current Size (cm) - Width 3.2 -Current Size (cm) - Depth 0.1 -Total Square Cm 13.44 -Photo Taken No -Epithelialization None Present -Tunneling No -Undermining/Tunneling No -Circular Undermining No -Classification - Thickness Full Thickness without Exposed Support Structure -Exudate Amt Medium -Exudate Type Serosanguineous -Wound Margin Flat & Intact -Granulation Quality Pale,Red -Slough/Fibrin Yes -Necrosis Amt Medium (34-66%) -Necrotic Tissue Type Adherent Slough -Structure Exposed None/Limited to Skin Breakdown -Texture (Ara-wound Skin Appearance) No Abnormality, Assessed -Moisture (Ara-wound Skin Appearance No Abnormality, ) Assessed -Color (Ara-wound Skin Appearance) No Abnormality, Assessed -Temperature (Ara-wound Skin No Abnormality Appearance) (Pt Warm) -Tenderness on Palpation (Ara-wound No Skin Appearance) -Ulcer Cleansing Rinsed/ Irrigated with Saline -Foul Odor after Cleansing No -Anesthetic Used 4% Lidocaine Solution #10 Left Medial Ankle -Combined with other wound No -Current Size (cm) - Length 4.0 -Current Size (cm) - Width 3.7 -Current Size (cm) - Depth 0.2 -Total Square Cm 14.80 -Photo Taken No -Epithelialization Small 1-33% -Tunneling No -Undermining/Tunneling No -Circular Undermining No -Classification - Thickness Full Thickness without Exposed Support Structure -Exudate Amt Medium -Exudate Type Serosanguineous -Wound Margin Flat & Intact -Granulation Amt Small (1-33%) -Granulation Quality N/A -Slough/Fibrin Yes -Necrosis Amt Medium (34-66%) -Necrotic Tissue Type Adherent Slough -Structure Exposed None/Limited to Skin Breakdown -Texture (Ara-wound Skin Appearance) No Abnormality, Assessed -Moisture (Ara-wound Skin Appearance No Abnormality, ) Assessed -Color (Ara-wound Skin Appearance) No Abnormality, Assessed -Temperature (Ara-wound Skin No Abnormality Appearance) (Pt Warm) -Tenderness on Palpation (Ara-wound No Skin Appearance) -Ulcer Cleansing Rinsed/ Irrigated with Saline -Foul Odor after Cleansing No -Anesthetic Used 4% Lidocaine Solution WC - Nurse 2 - General Ulcer CM Notes Start: 01/01/20 09:24 Freq: Status: Active Protocol: Activity Type Activity Date Activity User E-Sign Co-Sign Detail Recorded Client Recorded Date Recorded By Document 01/08/20 08:43 CARLOS [id number] 01/08/20 08:50 CARLOS 01/08/20 08:43 Wound Center Nurse 2 [Procedure/Treatment] #12 Medial Superior LLE -Time 08:44 -Correct Patient Yes -Correct Side, Site, Position Yes -Correct Procedure Yes -Procedure Performed Yes -Type of Procedure Debridement -Clinical Debridement Subcutaneous -Post Debridement Size (cm) - Length 3.8 -Post Debridement Size (cm) - Width 4.9 -Post Debridement Size (cm) - Depth 0.2 -Total Square Cm 18.62 -Wound/Ulcer Outcome Not Healed -Ulcer Cleansing Rinsed/ Irrigated with Saline -Foul Odor after Cleansing No -Bioengineered Tissue No -Bleeding Controlled with Pressure -Offloading No -Treatment Response Procedure Tolerated Well #11 Medial Inferior LLE -Time 08:44 -Correct Patient Yes -Correct Side, Site, Position Yes -Correct Procedure Yes -Procedure Performed Yes -Type of Procedure Debridement -Clinical Debridement Subcutaneous -Post Debridement Size (cm) - Length 4.3 -Post Debridement Size (cm) - Width 3.4 -Post Debridement Size (cm) - Depth 0.2 -Total Square Cm 14.62 -Wound/Ulcer Outcome Not Healed -Ulcer Cleansing Rinsed/ Irrigated with Saline -Foul Odor after Cleansing No -Bioengineered Tissue No -Bleeding Controlled with Pressure -Offloading No -Treatment Response Procedure Tolerated Well #10 Left Medial Ankle -Time 08:44 -Correct Patient Yes -Correct Side, Site, Position Yes -Correct Procedure Yes -Procedure Performed Yes -Type of Procedure Debridement -Clinical Debridement Subcutaneous -Post Debridement Size (cm) - Length 4.5 -Post Debridement Size (cm) - Width 3.9 -Post Debridement Size (cm) - Depth 0.2 -Total Square Cm 17.55 -Wound/Ulcer Outcome Not Healed -Ulcer Cleansing Rinsed/ Irrigated with Saline -Foul Odor after Cleansing No -Bioengineered Tissue No -Bleeding Controlled with Pressure -Offloading No -Treatment Response Procedure Tolerated Well [See Physician Procedure note for Specifics] Pain Scale: 0-10 Numeric [Pain] -Is Patient Pain Free? Yes Musculoskeletal: Tenderness - Some slight tenderness with manipulation of certain areas of some of the ulcer sites Neurological: Sensory exam intact to light touch and pain - He also has some areas of altered/decreased sensation to lower extremities Psych/Mental Status: Normal Affect, Appropriate Debridement Note Post-Debridement Measurements/Treatment WC - Nurse 2 - General Ulcer CM Notes Start: 01/01/20 09:24 Freq: Status: Active Protocol: Activity Type Activity Date Activity User E-Sign Co-Sign Detail Recorded Client Recorded Date Recorded By Document 01/01/20 09:55 [id number] 01/01/20 10:04 Document 01/08/20 08:43 [id number] 01/08/20 08:50 01/01/20 01/08/20 09:55 08:43 Wound Center Nurse 2 #12 Medial Superior LLE -Time 09:56 08:44 -Correct Patient Yes Yes -Correct Side, Site, Position Yes Yes -Correct Procedure Yes Yes -Procedure Performed Yes Yes -Type of Procedure Debridement Debridement -Clinical Debridement Subcutaneous Subcutaneous -Post Debridement Size (cm) - Length 3.8 3.8 -Post Debridement Size (cm) - Width 4.9 4.9 -Post Debridement Size (cm) - Depth 0.2 0.2 -Total Square Cm 18.62 18.62 -Wound/Ulcer Outcome Not Healed Not Healed -Ulcer Cleansing Rinsed/ Rinsed/ Irrigated with Irrigated with Saline Saline -Foul Odor after Cleansing No No -Bioengineered Tissue No No -Bleeding Controlled with Pressure Pressure -Offloading No No -Treatment Response Procedure Procedure Tolerated Well Tolerated Well #11 Medial Inferior LLE -Time 09:56 08:44 -Correct Patient Yes Yes -Correct Side, Site, Position Yes Yes -Correct Procedure Yes Yes -Procedure Performed Yes Yes -Type of Procedure Debridement Debridement -Clinical Debridement Subcutaneous Subcutaneous -Post Debridement Size (cm) - Length 4.6 4.3 -Post Debridement Size (cm) - Width 3.8 3.4 -Post Debridement Size (cm) - Depth 0.2 0.2 -Total Square Cm 17.48 14.62 -Wound/Ulcer Outcome Not Healed Not Healed -Ulcer Cleansing Rinsed/ Rinsed/ Irrigated with Irrigated with Saline Saline -Foul Odor after Cleansing No No -Bioengineered Tissue No No -Bleeding Controlled with Pressure Pressure -Offloading No No -Treatment Response Procedure Procedure Tolerated Well Tolerated Well #10 Left Medial Ankle -Time 09:56 08:44 -Correct Patient Yes Yes -Correct Side, Site, Position Yes Yes -Correct Procedure Yes Yes -Procedure Performed Yes Yes -Type of Procedure Debridement Debridement -Clinical Debridement Subcutaneous Subcutaneous -Post Debridement Size (cm) - Length 3.8 4.5 -Post Debridement Size (cm) - Width 3.9 3.9 -Post Debridement Size (cm) - Depth 0.2 0.2 -Total Square Cm 14.82 17.55 -Wound/Ulcer Outcome Not Healed Not Healed -Ulcer Cleansing Rinsed/ Rinsed/ Irrigated with Irrigated with Saline Saline -Foul Odor after Cleansing No No -Bioengineered Tissue No No -Bleeding Controlled with Pressure Pressure -Offloading No No -Treatment Response Procedure Procedure Tolerated Well Tolerated Well Pain Scale: 0-10 Numeric Is Patient Pain Free? Yes Yes Wound debrided: Left medial ankle Laterality: Left Type of Debridement: Excisional debridement Anesthesia Used: 4% Lidocaine Solution Depth: in the subcutaneous layer Percentage of wound debrided: 100 Instrument Used: 5mm curette Tissue Removed: Devitalized subcutaneous tissue, adherent slough, fibrin, biofilm Severity: Fat Layer Exposed Amount of bleeding with debridement: Mild Bleeding Controlled with: Pressure Patient tolerated procedure well - Additional Wound Wound debrided: Left lower leg inferior Laterality: Left Type of Debridement: Excisional debridement Anesthesia Used: 4% Lidocaine Solution Depth: in the subcutaneous layer Percentage of wound debrided: 100 Instrument Used: 5mm curette Tissue Removed: Devitalized subcutaneous tissue, adherent slough, fibrin, biofilm Severity: Fat Layer Exposed Amount of bleeding with debridement: Mild Bleeding Controlled with: Pressure Patient tolerated procedure: Patient tolerated procedure well - Additional Wound Wound debrided: Left lower leg superior Laterality: Left Type of Debridement: Excisional debridement Anesthesia Used: 4% Lidocaine Solution Depth: in the subcutaneous layer Percentage of wound debrided: 100 Instrument Used: 5mm curette Tissue Removed: Devitalized subcutaneous tissue, adherent slough, fibrin, biofilm Severity: Fat Layer Exposed Amount of bleeding with debridement: Mild Bleeding Controlled with: Pressure Patient tolerated procedure: Patient tolerated procedure well Assessment/Plan Assessment: Chronic left leg ulcer. Venous insufficiency. Leg edema. Delayed healing. Malnutrition suspected. Noncompliance. Continued smoking habits. Bacterial colonization and contamination is suspected Plan: Patient examined again today for left lower extremity ulcers. Ulcer sites stable overall. Another subcutaneous debridement was performed as noted in the clinical panel again today to each site. Patient encouraged to schedule his follow-up visit with Dr. Cade's office and he says that his follow-up will be on January 27. The bases were dressed with Aquacel Ag, followed by adaptic, and a dry sterile absorptive dressing. Patient is to continue with compression stockings as prescribed by Dr. Cade. Patient has been noncompliant with wearing compression as instructed. Patient had MRI taken previously as well and impression was read by radiologist is showing no signs of osteomyelitis, however there was a large venous varicosity seen within the subcutaneous tissue in the region of ulcer site. Full detailed report is in the patient's chart. Patient unable to tolerate almost every other dressing that has been tried to this date other than hydrofera blue and Aquacel Ag. The patient was referred to dermatology for a consult and biopsy of ulcer site to gain further information in the past as well. Biopsy results showed diagnosis as read by the lab: stasis dermatitis with an overlying cutaneous ulceration and reactive epidermal hyperplasia. They noted that the changes seen here are consistent with clinical impression of venous ulcer with reactive epidermal changes. Multiple deeper sections were examined. A PAS stain for fungal elements was negative. The entire path report will be in the patient's chart. He says he is unable to completely stop working, but he does have the option for light duty. Patient had a second injection procedure performed last week with Dr. Cade. He is to continue with prescribed thigh-high compression stockings by Dr. Cade. I stressed the importance of keeping pressure completely off of the ulcer and how this will impact his healing potential. Patient was instructed to be off his feet as much as possible and to keep the lower extremities elevated while not at work. The importance of compression was also discussed with this patient today. I continue to recommend nutritional supplementation with a high-protein diet at this time in order to help optimize ulcer healing potential. The patient continues to state that he has stopped smoking since his most recent vascular procedure. Patient also saw Dr. Spencer as a consult in the past as well, who offered the patient a surgical debridement with advanced wound graft placement, but patient denied this option. Patient was again informed that he remains at risk for limb loss. All signs and symptoms of local and systemic infection were discussed in great detail with the patient today and he was instructed to go to the emergency room immediately should he notice any of these. All questions were answered to the patient's satisfaction. Patient will follow back up at the wound healing center in 1 week, but was instructed to follow-up sooner if needed before then.
[2020-01-15 09:06] VITALS: BP 163/94; PULSE 80; RESP 20; TEMP 35.9; BMI 31.4
--- NOTE | 2020-01-15 09:44 | PCM.WC.PN ---
(1) Ulcer of left lower extremity with fat layer exposed Status: Chronic Current Visit: No Code(s): L97.922 - Non-pressure chronic ulcer of unspecified part of left lower leg with fat layer exposed (2) PVD (peripheral vascular disease) Status: Chronic Current Visit: No Code(s): I73.9 - Peripheral vascular disease, unspecified (3) Chronic venous insufficiency Status: Chronic Current Visit: No Code(s): I87.2 - Venous insufficiency (chronic) (peripheral) (4) Edema, lower extremity Status: Chronic Current Visit: No Code(s): R60.0 - Localized edema (5) Pain of left lower extremity Status: Chronic Current Visit: No Code(s): M79.605 - Pain in left leg (6) Delayed wound healing Status: Chronic Current Visit: No Code(s): T14.8XXD - Other injury of unspecified body region, subsequent encounter (7) Non-compliance with treatment Status: Chronic Current Visit: No Code(s): Z91.19 - Patient's noncompliance with other medical treatment and regimen Type of Wound Date of Service: 01/15/20 Chief Complaint: ulcers to the left lower leg History of Wound: This is a 54-year-old male presents to wound healing center with a long-standing history of chronic venous insufficiency, chronic venous hypertension, lower extremity edema, lower extremity pain, and chronic left lower extremity ulcer. 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 He is currently wearing graduated compression stockings which are documented to be 20-30 mmHg compression and these are thigh high. He reports great compliance with use. He is also had previous arterial work-up with no intervention recommended by letter, his vascular surgeon. He denies taking nutritional supplementation. He saw dermatology and had a biopsy of the ulcer site. He also was previously treated by infectious disease for various contaminations and infections. He is not antibiotics at this time nor does he have any redness or odor coming from the wound. He denies fever, chill, nausea, vomiting, loss of appetite. Progress of Wound: Ulcers remained stable. Patient denies any feelings of nausea, vomiting, fever, chills at this time. - Physical Exam Vital Signs Temp Pulse Resp BP 96.7 F L 80 20 H 163/94 H 01/15/20 09:06 01/15/20 09:06 01/15/20 09:06 01/15/20 09:06 General: Alert, Oriented x3, Cooperative, No apparent distress Extremities: Capillary Refill Less than 3 Seconds, No Calf Tenderness - Negative Lakisha and Hough signs, Diminished Peripheral Pulses, Edema - Mild lower extremity edema Skin: Ulcer/ Wound - Ulcers to left medial ankle/lower leg with fat layer exposed. Areas all stable this week. The base of each ulcer continues to be a mixture of devitalized subcutaneous tissue, slough, fibrin, granular tissue, biofilm, as well as some surrounding hyperkeratotic tissue. There continues to be no probing to bone, no tracking, no undermining, no surrounding or extending cellulitis, no purulence, no malodor, no increase in warmth to the ulcer site. Moderate to heavy drainage noted. Wound Measurements and Assessment WC - Nurse 1 - General Ulcer Measurement Start: 01/01/20 09:24 Freq: Status: Active Protocol: Activity Type Activity Date Activity User E-Sign Co-Sign Detail Recorded Client Recorded Date Recorded By Document 01/15/20 09:06 DL [id number] 01/15/20 09:13 DL 01/15/20 09:06 Wound Center Nurse 1 [Ulcer Assessment] #12 Medial Superior LLE -Current Size (cm) - Length 2.8 -Current Size (cm) - Width 5.8 -Current Size (cm) - Depth 0.1 -Total Square Cm 16.24 -Photo Taken No -Exudate Amt Small -Exudate Type Serosanguineous -Wound Margin Distinct, Outline Attached -Granulation Amt Medium (34-66%) -Granulation Quality Red -Necrosis Amt Medium (34-66%) -Necrotic Tissue Type Adherent Slough -Structure Exposed N/A -Texture (Ara-wound Skin Appearance) Scarring -Moisture (Ara-wound Skin Appearance Dry/Scaly ) -Color (Ara-wound Skin Appearance) Hemosiderin Staining,Rubor -Temperature (Ara-wound Skin No Abnormality Appearance) (Pt Warm) -Tenderness on Palpation (Ara-wound No Skin Appearance) -Ulcer Cleansing Wound Cleanser -Foul Odor after Cleansing No -Anesthetic Used 4% Lidocaine Solution #11 Medial Inferior LLE -Current Size (cm) - Length 4.5 -Current Size (cm) - Width 3.3 -Current Size (cm) - Depth 0.1 -Total Square Cm 14.85 -Photo Taken No -Exudate Amt Small -Exudate Type Serosanguineous -Wound Margin Thickened -Granulation Amt Medium (34-66%) -Granulation Quality Red -Necrosis Amt Medium (34-66%) -Necrotic Tissue Type Adherent Slough -Structure Exposed N/A -Texture (Ara-wound Skin Appearance) Scarring -Moisture (Ara-wound Skin Appearance Dry/Scaly ) -Color (Ara-wound Skin Appearance) Hemosiderin Staining,Rubor -Temperature (Ara-wound Skin No Abnormality Appearance) (Pt Warm) -Tenderness on Palpation (Ara-wound No Skin Appearance) -Ulcer Cleansing Wound Cleanser -Foul Odor after Cleansing No -Anesthetic Used 4% Lidocaine Solution #10 Left Medial Ankle -Current Size (cm) - Length 5 -Current Size (cm) - Width 4 -Current Size (cm) - Depth 0.2 -Total Square Cm 20 -Photo Taken No -Exudate Amt Small -Exudate Type Serosanguineous -Wound Margin Thickened -Granulation Amt Medium (34-66%) -Granulation Quality Red -Necrosis Amt Medium (34-66%) -Necrotic Tissue Type Adherent Slough -Structure Exposed N/A -Texture (Ara-wound Skin Appearance) Scarring -Moisture (Ara-wound Skin Appearance Dry/Scaly ) -Color (Ara-wound Skin Appearance) Hemosiderin Staining,Rubor -Temperature (Ara-wound Skin No Abnormality Appearance) (Pt Warm) -Tenderness on Palpation (Ara-wound No Skin Appearance) -Ulcer Cleansing Wound Cleanser -Anesthetic Used 4% Lidocaine Solution [Edema Assessment] -Left Calf (cm) 35 -Left Ankle (cm) 22 WC - Nurse 2 - General Ulcer CM Notes Start: 01/01/20 09:24 Freq: Status: Active Protocol: Activity Type Activity Date Activity User E-Sign Co-Sign Detail Recorded Client Recorded Date Recorded By Document 01/15/20 09:25 CARLOS [id number] 01/15/20 09:36 CARLOS 01/15/20 09:25 Wound Center Nurse 2 [Procedure/Treatment] #12 Medial Superior LLE -Time 09:28 -Correct Patient Yes -Correct Side, Site, Position Yes -Correct Procedure Yes -Procedure Performed Yes -Type of Procedure Debridement -Clinical Debridement Subcutaneous -Post Debridement Size (cm) - Length 3.8 -Post Debridement Size (cm) - Width 5.8 -Post Debridement Size (cm) - Depth 0.2 -Total Square Cm 22.04 -Wound/Ulcer Outcome Not Healed -Ulcer Cleansing Rinsed/ Irrigated with Saline -Foul Odor after Cleansing No -Bioengineered Tissue No -Bleeding Controlled with Pressure -Offloading No -Treatment Response Procedure Tolerated Well #11 Medial Inferior LLE -Time 09:28 -Correct Patient Yes -Correct Side, Site, Position Yes -Correct Procedure Yes -Procedure Performed Yes -Type of Procedure Debridement -Clinical Debridement Subcutaneous -Post Debridement Size (cm) - Length 4.3 -Post Debridement Size (cm) - Width 3.4 -Post Debridement Size (cm) - Depth 0.2 -Total Square Cm 14.62 -Wound/Ulcer Outcome Not Healed -Ulcer Cleansing Rinsed/ Irrigated with Saline -Foul Odor after Cleansing No -Bioengineered Tissue No -Bleeding Controlled with Pressure -Offloading No -Treatment Response Procedure Tolerated Well #10 Left Medial Ankle -Time 09:28 -Correct Patient Yes -Correct Side, Site, Position Yes -Correct Procedure Yes -Procedure Performed Yes -Type of Procedure Debridement -Clinical Debridement Subcutaneous -Post Debridement Size (cm) - Length 4.3 -Post Debridement Size (cm) - Width 4.3 -Post Debridement Size (cm) - Depth 0.2 -Total Square Cm 18.49 -Wound/Ulcer Outcome Not Healed -Ulcer Cleansing Rinsed/ Irrigated with Saline -Foul Odor after Cleansing No -Bioengineered Tissue No -Bleeding Controlled with Pressure -Offloading No -Treatment Response Procedure Tolerated Well [See Physician Procedure note for Specifics] Pain Scale: 0-10 Numeric [Pain] -Is Patient Pain Free? Yes Musculoskeletal: Tenderness - Some slight tenderness with manipulation of certain areas of some of the ulcer sites Neurological: Sensory exam intact to light touch and pain - He also has some areas of altered/decreased sensation to lower extremities Psych/Mental Status: Normal Affect, Appropriate Debridement Note Post-Debridement Measurements/Treatment WC - Nurse 2 - General Ulcer CM Notes Start: 01/01/20 09:24 Freq: Status: Active Protocol: Activity Type Activity Date Activity User E-Sign Co-Sign Detail Recorded Client Recorded Date Recorded By Document 01/01/20 09:55 [id number] 01/01/20 10:04 Document 01/08/20 08:43 [id number] 01/08/20 08:50 Document 01/15/20 09:25 [id number] 01/15/20 09:36 01/01/20 01/08/20 01/15/20 09:55 08:43 09:25 Wound Center Nurse 2 #12 Medial Superior LLE -Time 09:56 08:44 09:28 -Correct Patient Yes Yes Yes -Correct Side, Site, Position Yes Yes Yes -Correct Procedure Yes Yes Yes -Procedure Performed Yes Yes Yes -Type of Procedure Debridement Debridement Debridement -Clinical Debridement Subcutaneous Subcutaneous Subcutaneous -Post Debridement Size (cm) - Length 3.8 3.8 3.8 -Post Debridement Size (cm) - Width 4.9 4.9 5.8 -Post Debridement Size (cm) - Depth 0.2 0.2 0.2 -Total Square Cm 18.62 18.62 22.04 -Wound/Ulcer Outcome Not Healed Not Healed Not Healed -Ulcer Cleansing Rinsed/ Rinsed/ Rinsed/ Irrigated with Irrigated with Irrigated with Saline Saline Saline -Foul Odor after Cleansing No No No -Bioengineered Tissue No No No -Bleeding Controlled with Pressure Pressure Pressure -Offloading No No No -Treatment Response Procedure Procedure Procedure Tolerated Well Tolerated Well Tolerated Well #11 Medial Inferior LLE -Time 09:56 08:44 09:28 -Correct Patient Yes Yes Yes -Correct Side, Site, Position Yes Yes Yes -Correct Procedure Yes Yes Yes -Procedure Performed Yes Yes Yes -Type of Procedure Debridement Debridement Debridement -Clinical Debridement Subcutaneous Subcutaneous Subcutaneous -Post Debridement Size (cm) - Length 4.6 4.3 4.3 -Post Debridement Size (cm) - Width 3.8 3.4 3.4 -Post Debridement Size (cm) - Depth 0.2 0.2 0.2 -Total Square Cm 17.48 14.62 14.62 -Wound/Ulcer Outcome Not Healed Not Healed Not Healed -Ulcer Cleansing Rinsed/ Rinsed/ Rinsed/ Irrigated with Irrigated with Irrigated with Saline Saline Saline -Foul Odor after Cleansing No No No -Bioengineered Tissue No No No -Bleeding Controlled with Pressure Pressure Pressure -Offloading No No No -Treatment Response Procedure Procedure Procedure Tolerated Well Tolerated Well Tolerated Well #10 Left Medial Ankle -Time 09:56 08:44 09:28 -Correct Patient Yes Yes Yes -Correct Side, Site, Position Yes Yes Yes -Correct Procedure Yes Yes Yes -Procedure Performed Yes Yes Yes -Type of Procedure Debridement Debridement Debridement -Clinical Debridement Subcutaneous Subcutaneous Subcutaneous -Post Debridement Size (cm) - Length 3.8 4.5 4.3 -Post Debridement Size (cm) - Width 3.9 3.9 4.3 -Post Debridement Size (cm) - Depth 0.2 0.2 0.2 -Total Square Cm 14.82 17.55 18.49 -Wound/Ulcer Outcome Not Healed Not Healed Not Healed -Ulcer Cleansing Rinsed/ Rinsed/ Rinsed/ Irrigated with Irrigated with Irrigated with Saline Saline Saline -Foul Odor after Cleansing No No No -Bioengineered Tissue No No No -Bleeding Controlled with Pressure Pressure Pressure -Offloading No No No -Treatment Response Procedure Procedure Procedure Tolerated Well Tolerated Well Tolerated Well Pain Scale: 0-10 Numeric Is Patient Pain Free? Yes Yes Yes Wound debrided: Annual ankle Laterality: Left Type of Debridement: Excisional debridement Anesthesia Used: 4% Lidocaine Solution Depth: in the subcutaneous layer Percentage of wound debrided: 100 Instrument Used: 7mm curette Tissue Removed: Devitalized subcutaneous tissue, adherent slough, fibrin, biofilm Severity: Fat Layer Exposed Amount of bleeding with debridement: Mild Bleeding Controlled with: Pressure Patient tolerated procedure well - Additional Wound Wound debrided: Left lower leg inferior Laterality: Left Type of Debridement: Excisional debridement Anesthesia Used: 4% Lidocaine Solution Depth: in the subcutaneous layer Percentage of wound debrided: 100 Instrument Used: 7mm curette Tissue Removed: Devitalized subcutaneous tissue, adherent slough, fibrin, biofilm Severity: Fat Layer Exposed Amount of bleeding with debridement: Mild Bleeding Controlled with: Pressure Patient tolerated procedure: Patient tolerated procedure well - Additional Wound Wound debrided: Left lower leg superior Laterality: Left Type of Debridement: Excisional debridement Anesthesia Used: 4% Lidocaine Solution Depth: in the subcutaneous layer Percentage of wound debrided: 100 Instrument Used: 7mm curette Tissue Removed: Devitalized subcutaneous tissue, adherent slough, fibrin, biofilm Severity: Fat Layer Exposed Amount of bleeding with debridement: Mild Bleeding Controlled with: Pressure Patient tolerated procedure: Patient tolerated procedure well Assessment/Plan Assessment: Chronic left leg ulcer. Venous insufficiency. Leg edema. Delayed healing. Malnutrition suspected. Noncompliance. Continued smoking habits. Bacterial colonization and contamination is suspected Plan: Patient examined again today for left lower extremity ulcers. Ulcer sites stable overall again this week. Another subcutaneous debridement was performed as noted in the clinical panel to each site. Patient to follow-up visit with Dr. Cade on January 27. The bases were dressed with Aquacel Ag, followed by adaptic, and a dry sterile absorptive dressing. Patient is to continue with compression stockings as prescribed by Dr. Cade. Patient has been noncompliant with wearing compression as instructed. Patient had MRI taken previously as well and impression was read by radiologist is showing no signs of osteomyelitis, however there was a large venous varicosity seen within the subcutaneous tissue in the region of ulcer site. Full detailed report is in the patient's chart. Patient unable to tolerate almost every other dressing that has been tried to this date other than hydrofera blue and Aquacel Ag. The patient was referred to dermatology for a consult and biopsy of ulcer site to gain further information in the past as well. Biopsy results showed diagnosis as read by the lab: stasis dermatitis with an overlying cutaneous ulceration and reactive epidermal hyperplasia. They noted that the changes seen here are consistent with clinical impression of venous ulcer with reactive epidermal changes. Multiple deeper sections were examined. A PAS stain for fungal elements was negative. The entire path report will be in the patient's chart. He says he is unable to completely stop working, but he does have the option for light duty. He is to continue with prescribed thigh-high compression stockings by Dr. Cade. I stressed the importance of keeping pressure completely off of the ulcer and how this will impact his healing potential. Patient was instructed to be off his feet as much as possible and to keep the lower extremities elevated while not at work. The importance of compression was also discussed with this patient today. I continue to recommend nutritional supplementation with a high-protein diet at this time in order to help optimize ulcer healing potential. The patient continues to state that he has stopped smoking since his most recent vascular procedure. Patient also saw Dr. Spencer as a consult in the past as well, who offered the patient a surgical debridement with advanced wound graft placement, but patient denied this option. Patient was again informed that he remains at risk for limb loss. All signs and symptoms of local and systemic infection were discussed in great detail with the patient today and he was instructed to go to the emergency room immediately should he notice any of these. All questions were answered to the patient's satisfaction. Patient will follow back up at the wound healing center in 1 week, but was instructed to follow-up sooner if needed before then.
== END 2020-01-27 23:59 ==
LOC: WC 09:00
PROVIDERS: Referring Provider Podiatrist; Visit Provider Podiatrist
DX: I83.028 Varicose veins of left lower extremity with ulcer other part of lower leg (principal); L97.822 Non-pressure chronic ulcer of other part of left lower leg with fat layer exposed; L97.322 Non-pressure chronic ulcer of left ankle with fat layer exposed; I73.9 Peripheral vascular disease, unspecified; I87.2 Venous insufficiency (chronic) (peripheral); R60.0 Localized edema; M79.606 Pain in leg, unspecified; Z91.19 Patient's noncompliance with other medical treatment and regimen; Z87.891 Personal history of nicotine dependence
CPT/HCPCS: 11042; 11045

== ENCOUNTER 2020-02-26 09:00 | Outpatient (RCR) | payer BC, SELFPAY ==
[2020-01-28 00:26] VITALS: BP 163/94; PULSE 80; RESP 20; TEMP 35.9
[2020-01-29 10:03] VITALS: BMI 31.4
--- NOTE | 2020-01-29 19:21 | PCM.WC.PN ---
(1) Ulcer of left lower extremity with fat layer exposed Status: Chronic Current Visit: Yes Code(s): L97.922 - Non-pressure chronic ulcer of unspecified part of left lower leg with fat layer exposed (2) PVD (peripheral vascular disease) Status: Chronic Current Visit: Yes Code(s): I73.9 - Peripheral vascular disease, unspecified (3) Varicose veins with ulcer and inflammation Status: Chronic Current Visit: Yes Code(s): I83.209 - Varicose veins of unspecified lower extremity with both ulcer of unspecified site and inflammation; L97.909 - Non-pressure chronic ulcer of unspecified part of unspecified lower leg with unspecified severity (4) Delayed wound healing Status: Chronic Current Visit: No Code(s): T14.8XXD - Other injury of unspecified body region, subsequent encounter Type of Wound Date of Service: 01/30/20 Chief Complaint: ulcers to the left lower leg History of Wound: This is a 54-year-old male presents to wound healing center with a long-standing history of chronic venous insufficiency, chronic venous hypertension, lower extremity edema, lower extremity pain, and chronic left lower extremity ulcer. 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 He is currently wearing graduated compression stockings which are documented to be 20-30 mmHg compression and these are thigh high. He reports great compliance with use. He is also had previous arterial work-up with no intervention recommended by letter, his vascular surgeon. He denies taking nutritional supplementation. He saw dermatology and had a biopsy of the ulcer site. He also was previously treated by infectious disease for various contaminations and infections. He is not antibiotics at this time nor does he have any redness or odor coming from the wound. He denies fever, chill, nausea, vomiting, loss of appetite. Progress of Wound: Courtesy Visit for Dr. Elkins. No acute concerns at this time. Stable ulcers. - Physical Exam Vital Signs Temp Pulse Resp BP 96.7 F L 80 20 H 163/94 H 01/28/20 00:26 01/28/20 00:26 01/28/20 00:26 01/28/20 00:26 General: Alert, Oriented x3, Cooperative, No apparent distress HEENT: Atraumatic, Normocephalic Oral: Moist Mucosa Neck: Supple Lungs: Normal air movement Extremities: No cyanosis, Edema Skin: Ulcer/ Wound Wound Measurements and Assessment - Nurse 1 - General Ulcer Measurement Start: 01/29/20 10:03 Freq: Status: Active Protocol: Activity Type Activity Date Activity User E-Sign Co-Sign Detail Recorded Client Recorded Date Recorded By Document 01/29/20 10:03 DV [id number] 01/29/20 10:08 DV 01/29/20 10:03 Wound Center Nurse 1 [Ulcer Assessment] #12 Medial Superior LLE -Combined with other wound No -Current Size (cm) - Length 4.5 -Current Size (cm) - Width 5.5 -Current Size (cm) - Depth 0.1 -Total Square Cm 24.75 -Photo Taken No -Epithelialization None Present -Tunneling No -Undermining/Tunneling No -Circular Undermining No -Classification - Thickness Full Thickness without Exposed Support Structure -Exudate Amt Large -Exudate Type Serosanguineous -Wound Margin Indistinct, Non -Visible -Granulation Amt None Present (0 %) -Granulation Quality N/A -Slough/Fibrin Yes -Necrosis Amt Large (67-100%) -Necrotic Tissue Type Adherent Slough -Structure Exposed None/Limited to Skin Breakdown -Texture (Ara-wound Skin Appearance) Assessed, Scarring -Moisture (Ara-wound Skin Appearance Assessed, ) Weeping -Color (Ara-wound Skin Appearance) No Abnormality, Assessed -Anesthetic Used 4% Lidocaine Solution #11 Medial Inferior LLE -Combined with other wound No -Current Size (cm) - Length 4.0 -Current Size (cm) - Width 4.4 -Current Size (cm) - Depth 0.2 -Total Square Cm 17.60 -Photo Taken No -Epithelialization None Present -Tunneling No -Undermining/Tunneling No -Circular Undermining No -Classification - Thickness Full Thickness without Exposed Support Structure -Exudate Amt Large -Exudate Type Serosanguineous -Wound Margin Flat & Intact -Granulation Amt None Present (0 %) -Granulation Quality N/A -Slough/Fibrin No -Necrosis Amt Large (67-100%) -Necrotic Tissue Type Adherent Slough -Structure Exposed None/Limited to Skin Breakdown -Texture (Ara-wound Skin Appearance) Assessed, Scarring -Moisture (Ara-wound Skin Appearance Assessed, ) Weeping -Color (Ara-wound Skin Appearance) No Abnormality, Assessed -Temperature (Ara-wound Skin No Abnormality Appearance) (Pt Warm) -Tenderness on Palpation (Ara-wound No Skin Appearance) -Ulcer Cleansing Rinsed/ Irrigated with Saline -Foul Odor after Cleansing No -Anesthetic Used 4% Lidocaine Solution #10 Left Medial Ankle -Combined with other wound No -Current Size (cm) - Length 5.0 -Current Size (cm) - Width 3.7 -Current Size (cm) - Depth 0.2 -Total Square Cm 18.50 -Photo Taken No -Epithelialization None Present -Tunneling No -Undermining/Tunneling No -Circular Undermining No -Classification - Thickness Full Thickness without Exposed Support Structure -Change in Wound Grade/Stage No Query Text:If change please identify the Stage/Grade in the comment (ie. S2 G3) -Exudate Amt Large -Exudate Type Serosanguineous -Wound Margin Indistinct, Non -Visible -Granulation Amt None Present (0 %) -Granulation Quality N/A -Slough/Fibrin Yes -Necrosis Amt Large (67-100%) -Necrotic Tissue Type Adherent Slough -Structure Exposed None/Limited to Skin Breakdown -Texture (Ara-wound Skin Appearance) Assessed, Scarring -Moisture (Ara-wound Skin Appearance Assessed, ) Weeping -Color (Ara-wound Skin Appearance) No Abnormality -Temperature (Ara-wound Skin No Abnormality Appearance) (Pt Warm) -Tenderness on Palpation (Ara-wound No Skin Appearance) -Ulcer Cleansing Rinsed/ Irrigated with Saline -Foul Odor after Cleansing No -Anesthetic Used 4% Lidocaine Solution [Edema Assessment] -Lower Limb Edema Present No WC - Nurse 2 - General Ulcer CM Notes Start: 01/29/20 10:03 Freq: Status: Active Protocol: Activity Type Activity Date Activity User E-Sign Co-Sign Detail Recorded Client Recorded Date Recorded By Document 01/29/20 10:25 MW [id number] 01/29/20 10:28 MW 01/29/20 10:25 Wound Center Nurse 2 [Procedure/Treatment] #12 Medial Superior LLE -Time 10:25 -Correct Patient Yes -Correct Side, Site, Position Yes -Correct Procedure Yes -Procedure Performed Yes -Type of Procedure Debridement -Clinical Debridement Subcutaneous -Post Debridement Size (cm) - Length 3.0 -Post Debridement Size (cm) - Width 6.5 -Post Debridement Size (cm) - Depth 0.1 -Total Square Cm 19.50 -Wound/Ulcer Outcome Not Healed -Ulcer Cleansing Rinsed/ Irrigated with Saline -Foul Odor after Cleansing No -Bioengineered Tissue No -Bleeding Controlled with Pressure -Offloading No -Treatment Response Procedure Tolerated Well #11 Medial Inferior LLE -Time 10:25 -Correct Patient Yes -Correct Side, Site, Position Yes -Correct Procedure Yes -Procedure Performed Yes -Type of Procedure Debridement -Clinical Debridement Subcutaneous -Post Debridement Size (cm) - Length 4.5 -Post Debridement Size (cm) - Width 4.0 -Post Debridement Size (cm) - Depth 0.2 -Total Square Cm 18.00 -Wound/Ulcer Outcome Not Healed -Ulcer Cleansing Rinsed/ Irrigated with Saline -Foul Odor after Cleansing No -Bioengineered Tissue No -Bleeding Controlled with Pressure -Offloading No -Treatment Response Procedure Tolerated Well #10 Left Medial Ankle -Time 10:26 -Correct Patient Yes -Correct Side, Site, Position Yes -Correct Procedure Yes -Procedure Performed Yes -Type of Procedure Debridement -Clinical Debridement Subcutaneous -Post Debridement Size (cm) - Length 4.5 -Post Debridement Size (cm) - Width 2.3 -Post Debridement Size (cm) - Depth 0.2 -Total Square Cm 10.35 -Wound/Ulcer Outcome Not Healed -Ulcer Cleansing Rinsed/ Irrigated with Saline -Foul Odor after Cleansing No -Bioengineered Tissue No -Bleeding Controlled with Pressure -Offloading No -Treatment Response Procedure Tolerated Well [See Physician Procedure note for Specifics] Pain Scale: 0-10 Numeric [Pain] -Is Patient Pain Free? Yes Neurological: Cranial nerves II-XII grossly intact Psych/Mental Status: Normal Affect Debridement Note Post-Debridement Measurements/Treatment WC - Nurse 2 - General Ulcer CM Notes Start: 01/29/20 10:03 Freq: Status: Active Protocol: Activity Type Activity Date Activity User E-Sign Co-Sign Detail Recorded Client Recorded Date Recorded By Document 01/29/20 10:25 MW [id number] 01/29/20 10:28 MW 01/29/20 10:25 Wound Center Nurse 2 #12 Medial Superior LLE -Time 10:25 -Correct Patient Yes -Correct Side, Site, Position Yes -Correct Procedure Yes -Procedure Performed Yes -Type of Procedure Debridement -Clinical Debridement Subcutaneous -Post Debridement Size (cm) - Length 3.0 -Post Debridement Size (cm) - Width 6.5 -Post Debridement Size (cm) - Depth 0.1 -Total Square Cm 19.50 -Wound/Ulcer Outcome Not Healed -Ulcer Cleansing Rinsed/ Irrigated with Saline -Foul Odor after Cleansing No -Bioengineered Tissue No -Bleeding Controlled with Pressure -Offloading No -Treatment Response Procedure Tolerated Well #11 Medial Inferior LLE -Time 10:25 -Correct Patient Yes -Correct Side, Site, Position Yes -Correct Procedure Yes -Procedure Performed Yes -Type of Procedure Debridement -Clinical Debridement Subcutaneous -Post Debridement Size (cm) - Length 4.5 -Post Debridement Size (cm) - Width 4.0 -Post Debridement Size (cm) - Depth 0.2 -Total Square Cm 18.00 -Wound/Ulcer Outcome Not Healed -Ulcer Cleansing Rinsed/ Irrigated with Saline -Foul Odor after Cleansing No -Bioengineered Tissue No -Bleeding Controlled with Pressure -Offloading No -Treatment Response Procedure Tolerated Well #10 Left Medial Ankle -Time 10:26 -Correct Patient Yes -Correct Side, Site, Position Yes -Correct Procedure Yes -Procedure Performed Yes -Type of Procedure Debridement -Clinical Debridement Subcutaneous -Post Debridement Size (cm) - Length 4.5 -Post Debridement Size (cm) - Width 2.3 -Post Debridement Size (cm) - Depth 0.2 -Total Square Cm 10.35 -Wound/Ulcer Outcome Not Healed -Ulcer Cleansing Rinsed/ Irrigated with Saline -Foul Odor after Cleansing No -Bioengineered Tissue No -Bleeding Controlled with Pressure -Offloading No -Treatment Response Procedure Tolerated Well Pain Scale: 0-10 Numeric Is Patient Pain Free? Yes Wound debrided: Left medial ankle Type of Debridement: Excisional debridement Anesthesia Used: 4% Lidocaine Solution Depth: Down to and including healthy tissue, in the subcutaneous layer Percentage of wound debrided: 100 Instrument Used: 5mm curette Tissue Removed: Slough and devitalized tissue Severity: Fat Layer Exposed Amount of bleeding with debridement: Mild Bleeding Controlled with: Pressure Patient tolerated procedure well - Additional Wound Wound debrided: Left Superior may Type of Debridement: Excisional debridement Anesthesia Used: 4% Lidocaine Solution Depth: Down to and including healthy tissue, in the subcutaneous layer Percentage of wound debrided: 100 Instrument Used: 5mm curette Tissue Removed: Slough and devitalized tissue Severity: Fat Layer Exposed Amount of bleeding with debridement: Mild Bleeding Controlled with: Pressure Patient tolerated procedure: Patient tolerated procedure well - Additional Wound Wound debrided: Left Inferior may Type of Debridement: Excisional debridement Anesthesia Used: 4% Lidocaine Solution Depth: Down to and including healthy tissue, in the subcutaneous layer Percentage of wound debrided: 100 Instrument Used: 5mm curette Tissue Removed: Slough and devitalized tissue Severity: Fat Layer Exposed Amount of bleeding with debridement: Mild Bleeding Controlled with: Pressure Patient tolerated procedure: Patient tolerated procedure well Assessment/Plan Active Problems Ulcer of left lower extremity with fat layer exposed (Chronic) PVD (peripheral vascular disease) (Chronic) Varicose veins with ulcer and inflammation (Chronic) Assessment: Chronic left leg ulcer. Venous insufficiency. Leg edema. Delayed healing. Malnutrition suspected. Noncompliance. Continued smoking habits. Bacterial colonization and contamination is suspected Plan: Debridement done as documented above, procedure was well tolerated. Continue [employer] with adaptic overtop and tubi pattern grader cutter for edema management. Increased protein intake also recommended. Continue follow up with Dr. Kitchen, Compression, leg elevation and exercise. Continue other wound care management per Dr. Elkins. His questions were answered and he was advised to call with any further questions or concerns. [id number]: [id number] [place] subq tissue 20 sq cm/< Add On Codes: [id number] Lakeisha subq tissue add-on - Additional Sq Cm debrided. Please refer to clinical note.
[2020-02-12 09:03] VITALS: BP 158/96; PULSE 81; RESP 18; TEMP 36.6; BMI 31.4
--- NOTE | 2020-02-12 10:32 | PCM.WC.PN ---
(1) Ulcer of left lower extremity with fat layer exposed Status: Chronic Current Visit: Yes Code(s): L97.922 - Non-pressure chronic ulcer of unspecified part of left lower leg with fat layer exposed (2) PVD (peripheral vascular disease) Status: Chronic Current Visit: Yes Code(s): I73.9 - Peripheral vascular disease, unspecified (3) Varicose veins with ulcer and inflammation Status: Chronic Current Visit: Yes Code(s): I83.209 - Varicose veins of unspecified lower extremity with both ulcer of unspecified site and inflammation; L97.909 - Non-pressure chronic ulcer of unspecified part of unspecified lower leg with unspecified severity (4) Delayed wound healing Status: Chronic Current Visit: No Code(s): T14.8XXD - Other injury of unspecified body region, subsequent encounter Type of Wound Date of Service: 02/12/20 Chief Complaint: ulcers to the left lower leg History of Wound: This is a 54-year-old male presents to wound healing center with a long-standing history of chronic venous insufficiency, chronic venous hypertension, lower extremity edema, lower extremity pain, and chronic left lower extremity ulcer. The patient has previously undergone endovenous laser ablation of the left and right great saphenous vein, the small saphenous vein, the left accessory saphenous vein, and an incompetent left calf circular sawyer stone vein located 15 cm proximal to the left medial malleolus. He is currently wearing graduated compression stockings which are documented to be 20-30 mmHg compression and these are thigh high. He reports great compliance with use. He is also had previous arterial work-up with no intervention recommended by letter, his vascular surgeon. He denies taking nutritional supplementation. He saw dermatology and had a biopsy of the ulcer site. He also was previously treated by infectious disease for various contaminations and infections. He is not antibiotics at this time nor does he have any redness or odor coming from the wound. He denies fever, chill, nausea, vomiting, loss of appetite. Progress of Wound: Stable. No new concerns at this time. - Physical Exam Vital Signs Temp Pulse Resp BP 97.8 F 81 18 158/96 H 02/12/20 09:03 02/12/20 09:03 02/12/20 09:03 02/12/20 09:03 General: Alert, Oriented x3, Cooperative, No apparent distress HEENT: Atraumatic, Normocephalic Oral: Moist Mucosa Neck: Supple Lungs: Normal air movement Extremities: No cyanosis, Edema Skin: Ulcer/ Wound Wound Measurements and Assessment WC - Nurse 1 - General Ulcer Measurement Start: 01/29/20 10:03 Freq: Status: Active Protocol: Activity Type Activity Date Activity User E-Sign Co-Sign Detail Recorded Client Recorded Date Recorded By Document 02/12/20 09:03 PL [id number] 02/12/20 09:13 PL 02/12/20 09:03 Wound Center Nurse 1 [Ulcer Assessment] #12 Medial Superior LLE -Combined with other wound No -Current Size (cm) - Length 4.0 -Current Size (cm) - Width 5.0 -Current Size (cm) - Depth 0.2 -Total Square Cm 20.00 -Photo Taken No -Epithelialization Small 1-33% -Tunneling No -Undermining/Tunneling No -Exudate Amt Medium -Exudate Type Serosanguineous -Granulation Amt Medium (34-66%) -Granulation Quality [place],Red -Slough/Fibrin Yes -Necrosis Amt Medium (34-66%) -Necrotic Tissue Type Adherent Slough -Texture (Ara-wound Skin Appearance) No Abnormality -Moisture (Ara-wound Skin Appearance No Abnormality ) -Color (Ara-wound Skin Appearance) No Abnormality -Temperature (Ara-wound Skin No Abnormality Appearance) (Pt Warm) -Tenderness on Palpation (Ara-wound No Skin Appearance) -Ulcer Cleansing Rinsed/ Irrigated with Saline -Foul Odor after Cleansing No -Anesthetic Used 4% Lidocaine Solution #11 Medial Inferior LLE -Current Size (cm) - Length 4.0 -Current Size (cm) - Width 3.5 -Current Size (cm) - Depth 0.2 -Total Square Cm 14.00 -Photo Taken No -Epithelialization None Present -Tunneling No -Undermining/Tunneling No -Circular Undermining No -Exudate Amt Medium -Exudate Type Serosanguineous -Granulation Amt Medium (34-66%) -Granulation Quality [place] -Slough/Fibrin Yes -Necrosis Amt Medium (34-66%) -Necrotic Tissue Type Adherent Slough -Texture (Ara-wound Skin Appearance) No Abnormality -Moisture (Ara-wound Skin Appearance No Abnormality ) -Color (Ara-wound Skin Appearance) No Abnormality -Temperature (Aar-wound Skin No Abnormality Appearance) (Pt Warm) -Tenderness on Palpation (Ara-wound No Skin Appearance) -Ulcer Cleansing Rinsed/ Irrigated with Saline -Foul Odor after Cleansing No -Anesthetic Used 4% Lidocaine Solution #10 Left Medial Ankle -Combined with other wound No -Current Size (cm) - Length 4.0 -Current Size (cm) - Width 3.4 -Current Size (cm) - Depth 0.2 -Total Square Cm 13.60 -Photo Taken No -Epithelialization None Present -Tunneling No -Undermining/Tunneling No -Exudate Amt Medium -Exudate Type Serosanguineous -Granulation Amt Medium (34-66%) -Granulation Quality [place],Red -Slough/Fibrin Yes -Necrosis Amt Medium (34-66%) -Necrotic Tissue Type Adherent Slough -Texture (Ara-wound Skin Appearance) No Abnormality -Moisture (Ara-wound Skin Appearance No Abnormality ) -Color (Ara-wound Skin Appearance) No Abnormality -Temperature (Ara-wound Skin No Abnormality Appearance) (Pt Warm) -Tenderness on Palpation (Ara-wound No Skin Appearance) -Ulcer Cleansing Rinsed/ Irrigated with Saline -Foul Odor after Cleansing No -Anesthetic Used 4% Lidocaine Solution WC - Nurse 2 - General Ulcer CM Notes Start: 01/29/20 10:03 Freq: Status: Active Protocol: Activity Type Activity Date Activity User E-Sign Co-Sign Detail Recorded Client Recorded Date Recorded By Document 02/12/20 09:32 MW [id number] 02/12/20 09:40 MW 02/12/20 09:32 Wound Center Nurse 2 [Procedure/Treatment] #12 Medial Superior LLE -Time 09:32 -Correct Patient Yes -Correct Side, Site, Position Yes -Correct Procedure Yes -Procedure Performed Yes -Type of Procedure Debridement -Clinical Debridement Subcutaneous -Post Debridement Size (cm) - Length 4.0 -Post Debridement Size (cm) - Width 5.5 -Post Debridement Size (cm) - Depth 0.1 -Total Square Cm 22.00 -Wound/Ulcer Outcome Not Healed -Ulcer Cleansing Rinsed/ Irrigated with Saline -Foul Odor after Cleansing No -Bioengineered Tissue No -Bleeding Controlled with Pressure -Offloading No -Treatment Response Procedure Tolerated Well #11 Medial Inferior LLE -Time 09:33 -Correct Patient Yes -Correct Side, Site, Position Yes -Correct Procedure Yes -Procedure Performed Yes -Type of Procedure Debridement -Clinical Debridement Subcutaneous -Post Debridement Size (cm) - Length 4.0 -Post Debridement Size (cm) - Width 4.0 -Post Debridement Size (cm) - Depth 0.1 -Total Square Cm 16.00 -Wound/Ulcer Outcome Not Healed -Ulcer Cleansing Rinsed/ Irrigated with Saline -Foul Odor after Cleansing No -Bioengineered Tissue No -Bleeding Controlled with Pressure -Offloading No -Treatment Response Procedure Tolerated Well #10 Left Medial Ankle -Time 09:33 -Correct Patient Yes -Correct Side, Site, Position Yes -Correct Procedure Yes -Procedure Performed Yes -Type of Procedure Debridement -Clinical Debridement Subcutaneous -Post Debridement Size (cm) - Length 5.0 -Post Debridement Size (cm) - Width 2.5 -Post Debridement Size (cm) - Depth 0.2 -Total Square Cm 12.50 -Wound/Ulcer Outcome Not Healed -Ulcer Cleansing Wound Cleanser -Foul Odor after Cleansing No -Bioengineered Tissue No -Bleeding Controlled with Pressure -Offloading No -Treatment Response Procedure Tolerated Well [See Physician Procedure note for Specifics] Pain Scale: 0-10 Numeric [Pain] -Is Patient Pain Free? Yes Musculoskeletal: No Muscle Wasting Psych/Mental Status: Normal Affect Debridement Note Post-Debridement Measurements/Treatment WC - Nurse 2 - General Ulcer CM Notes Start: 01/29/20 10:03 Freq: Status: Active Protocol: Activity Type Activity Date Activity User E-Sign Co-Sign Detail Recorded Client Recorded Date Recorded By Document 01/29/20 10:25 MW [id number] 01/29/20 10:28 MW Document 02/12/20 09:32 MW [id number] 02/12/20 09:40 MW 01/29/20 02/12/20 10:25 09:32 Wound Center Nurse 2 #12 Medial Superior LLE -Time 10:25 09:32 -Correct Patient Yes Yes -Correct Side, Site, Position Yes Yes -Correct Procedure Yes Yes -Procedure Performed Yes Yes -Type of Procedure Debridement Debridement -Clinical Debridement Subcutaneous Subcutaneous -Post Debridement Size (cm) - Length 3.0 4.0 -Post Debridement Size (cm) - Width 6.5 5.5 -Post Debridement Size (cm) - Depth 0.1 0.1 -Total Square Cm 19.50 22.00 -Wound/Ulcer Outcome Not Healed Not Healed -Ulcer Cleansing Rinsed/ Rinsed/ Irrigated with Irrigated with Saline Saline -Foul Odor after Cleansing No No -Bioengineered Tissue No No -Bleeding Controlled with Pressure Pressure -Offloading No No -Treatment Response Procedure Procedure Tolerated Well Tolerated Well #11 Medial Inferior LLE -Time 10:25 09:33 -Correct Patient Yes Yes -Correct Side, Site, Position Yes Yes -Correct Procedure Yes Yes -Procedure Performed Yes Yes -Type of Procedure Debridement Debridement -Clinical Debridement Subcutaneous Subcutaneous -Post Debridement Size (cm) - Length 4.5 4.0 -Post Debridement Size (cm) - Width 4.0 4.0 -Post Debridement Size (cm) - Depth 0.2 0.1 -Total Square Cm 18.00 16.00 -Wound/Ulcer Outcome Not Healed Not Healed -Ulcer Cleansing Rinsed/ Rinsed/ Irrigated with Irrigated with Saline Saline -Foul Odor after Cleansing No No -Bioengineered Tissue No No -Bleeding Controlled with Pressure Pressure -Offloading No No -Treatment Response Procedure Procedure Tolerated Well Tolerated Well #10 Left Medial Ankle -Time 10:26 09:33 -Correct Patient Yes Yes -Correct Side, Site, Position Yes Yes -Correct Procedure Yes Yes -Procedure Performed Yes Yes -Type of Procedure Debridement Debridement -Clinical Debridement Subcutaneous Subcutaneous -Post Debridement Size (cm) - Length 4.5 5.0 -Post Debridement Size (cm) - Width 2.3 2.5 -Post Debridement Size (cm) - Depth 0.2 0.2 -Total Square Cm 10.35 12.50 -Wound/Ulcer Outcome Not Healed Not Healed -Ulcer Cleansing Rinsed/ Wound Cleanser Irrigated with Saline -Foul Odor after Cleansing No No -Bioengineered Tissue No No -Bleeding Controlled with Pressure Pressure -Offloading No No -Treatment Response Procedure Procedure Tolerated Well Tolerated Well Pain Scale: 0-10 Numeric Is Patient Pain Free? Yes Yes Wound debrided: Left lower (extremity medial ankle) Type of Debridement: Excisional debridement Anesthesia Used: 4% Lidocaine Solution Depth: Down to and including healthy tissue, in the subcutaneous layer Percentage of wound debrided: 100 Instrument Used: 5mm curette Tissue Removed: Slough and devitalized tissue Severity: Fat Layer Exposed Amount of bleeding with debridement: Mild Bleeding Controlled with: Pressure Patient tolerated procedure well - Additional Wound Wound debrided: Left may superior Type of Debridement: Excisional debridement Anesthesia Used: 4% Lidocaine Solution Depth: Down to and including healthy tissue, in the subcutaneous layer Percentage of wound debrided: 100 Instrument Used: 5mm curette Tissue Removed: Slough and devitalized tissue Severity: Fat Layer Exposed Amount of bleeding with debridement: Mild Bleeding Controlled with: Pressure Patient tolerated procedure: Patient tolerated procedure well - Additional Wound Wound debrided: Left may inferior Type of Debridement: Excisional debridement Anesthesia Used: 4% Lidocaine Solution Depth: Down to and including healthy tissue, in the subcutaneous layer Percentage of wound debrided: 100 Instrument Used: 5mm curette Tissue Removed: Slough and devitalized tissue Severity: Fat Layer Exposed Amount of bleeding with debridement: Mild Bleeding Controlled with: Pressure Patient tolerated procedure: Patient tolerated procedure well Assessment/Plan Active Problems Ulcer of left lower extremity with fat layer exposed (Chronic) PVD (peripheral vascular disease) (Chronic) Varicose veins with ulcer and inflammation (Chronic) Assessment: Chronic left leg ulcer. Venous insufficiency. Leg edema. Delayed healing. Malnutrition suspected. Noncompliance. Continued smoking habits. Bacterial colonization and contamination is suspected Plan: Debridement done as documented above, procedure was well tolerated. Continue aquacel ag with keramax over top. Continue use of compression stockings, leg elevation and exercise. Increased protein intake is also recommended. His questions were answered and he was advised to call with any further questions or concerns. Follow-up in 2 weeks. This note was generated with [email or web address] dictation software. It may contain incorrect words, spelling, and punctuation that were not noted in checking the note before signing. [id number]: [id number] Lakeisha subq tissue 20 sq cm/< Add On Codes: [id number] Lakeisha subq tissue add-on - Additional square centimeters debrided, please refer to clinical note.
[2020-02-26 09:03] VITALS: BP 157/94; PULSE 79; RESP 14; TEMP 36; BMI 31.4
--- NOTE | 2020-02-26 13:16 | PN.PCM_ITS ---
(1) Ulcer of left lower extremity with fat layer exposed Status: Chronic Current Visit: Yes Code(s): L97.922 - Non-pressure chronic ulcer of unspecified part of left lower leg with fat layer exposed (2) PVD (peripheral vascular disease) Status: Chronic Current Visit: Yes Code(s): I73.9 - Peripheral vascular disease, unspecified (3) Varicose veins with ulcer and inflammation Status: Chronic Current Visit: Yes Code(s): I83.209 - Varicose veins of unspecified lower extremity with both ulcer of unspecified site and inflammation; L97.909 - Non-pressure chronic ulcer of unspecified part of unspecified lower leg with unspecified severity (4) Delayed wound healing Status: Chronic Current Visit: No Code(s): T14.8XXD - Other injury of unspecified body region, subsequent encounter Type of Wound Date of Service: 02/26/20 Chief Complaint: ulcers to the left lower leg History of Wound: This is a 54-year-old male presents to wound healing center with a long-standing history of chronic venous insufficiency, chronic venous hypertension, lower extremity edema, lower extremity pain, and chronic left lower extremity ulcer. 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 He is currently wearing graduated compression stockings which are documented to be 20-30 mmHg compression and these are thigh high. He reports great compliance with use. He is also had previous arterial work-up with no intervention recommended by letter, his vascular surgeon. He denies taking nutritional supplementation. He saw dermatology and had a biopsy of the ulcer site. He also was previously treated by infectious disease for various contaminations and infections. He is not antibiotics at this time nor does he have any redness or odor coming from the wound. He denies fever, chill, nausea, vomiting, loss of appetite. Progress of Wound: Stable. No new concerns at this time. - Physical Exam Vital Signs Temp Pulse Resp BP 96.8 F L 79 14 157/94 H 02/26/20 09:03 02/26/20 09:03 02/26/20 09:03 02/26/20 09:03 General: Alert, Oriented x3, Cooperative, No apparent distress HEENT: Atraumatic, Normocephalic Oral: Moist Mucosa Neck: Supple Lungs: Normal air movement Abdomen: Non Tender, Obese Extremities: No cyanosis, Edema Skin: Ulcer/ Wound Wound Measurements and Assessment WC - Nurse 1 - General Ulcer Measurement Start: 01/29/20 10:03 Freq: Status: Active Protocol: Activity Type Activity Date Activity User E-Sign Co-Sign Detail Recorded Client Recorded Date Recorded By Document 02/26/20 09:03 [id number] 02/26/20 09:15 02/26/20 09:03 Wound Center Nurse 1 [Ulcer Assessment] #12 Medial Superior LLE -Combined with other wound No -Current Size (cm) - Length 4.3 -Current Size (cm) - Width 5.1 -Current Size (cm) - Depth 0.1 -Total Square Cm 21.93 -Photo Taken No -Epithelialization None Present -Tunneling No -Undermining/Tunneling No -Circular Undermining No -Exudate Amt Large -Exudate Type Serosanguineous -Wound Margin Distinct, Outline Attached -Granulation Amt Large (67-100%) -Granulation Quality Red -Slough/Fibrin Yes -Necrosis Amt None Present (0 %) -Necrotic Tissue Type Adherent Slough -Structure Exposed N/A -Texture (Ara-wound Skin Appearance) Scarring -Moisture (Ara-wound Skin Appearance Dry/Scaly ) -Color (Ara-wound Skin Appearance) Hemosiderin Staining -Temperature (Ara-wound Skin No Abnormality Appearance) (Pt Warm) -Tenderness on Palpation (Ara-wound No Skin Appearance) -Ulcer Cleansing Rinsed/ Irrigated with Saline -Foul Odor after Cleansing No -Anesthetic Used 4% Lidocaine Solution #11 Medial Inferior LLE -Combined with other wound No -Current Size (cm) - Length 3.2 -Current Size (cm) - Width 3.4 -Current Size (cm) - Depth 0.2 -Total Square Cm 10.88 -Photo Taken No -Epithelialization None Present -Tunneling No -Undermining/Tunneling No -Circular Undermining No -Exudate Amt Medium -Exudate Type Serosanguineous -Wound Margin Distinct, Outline Attached -Granulation Amt Large (67-100%) -Granulation Quality Red -Slough/Fibrin Yes -Necrosis Amt None Present (0 %) -Necrotic Tissue Type Adherent Slough -Structure Exposed N/A -Texture (Ara-wound Skin Appearance) Scarring -Moisture (Ara-wound Skin Appearance Dry/Scaly ) -Color (Ara-wound Skin Appearance) Assessed, Hemosiderin Staining -Temperature (Ara-wound Skin No Abnormality Appearance) (Pt Warm) -Tenderness on Palpation (Ara-wound No Skin Appearance) -Ulcer Cleansing Rinsed/ Irrigated with Saline -Foul Odor after Cleansing No -Anesthetic Used 4% Lidocaine Solution #10 Left Medial Ankle -Combined with other wound No -Current Size (cm) - Length 4 -Current Size (cm) - Width 4.4 -Current Size (cm) - Depth 0.2 -Total Square Cm 17.6 -Photo Taken No -Epithelialization None Present -Tunneling No -Undermining/Tunneling No -Circular Undermining No -Exudate Amt Medium -Exudate Type Serosanguineous -Wound Margin Distinct, Outline Attached -Granulation Amt Large (67-100%) -Granulation Quality Red -Slough/Fibrin Yes -Necrosis Amt None Present (0 %) -Necrotic Tissue Type Adherent Slough -Structure Exposed N/A -Texture (Ara-wound Skin Appearance) Scarring -Moisture (Ara-wound Skin Appearance Dry/Scaly ) -Color (Ara-wound Skin Appearance) Hemosiderin Staining -Temperature (Ara-wound Skin No Abnormality Appearance) (Pt Warm) -Tenderness on Palpation (Ara-wound No Skin Appearance) -Ulcer Cleansing Rinsed/ Irrigated with Saline -Foul Odor after Cleansing No -Anesthetic Used 4% Lidocaine Solution [Edema Assessment] -Lower Limb Edema Present No -Left Calf (cm) 33 -Left Ankle (cm) 23.2 WC - Nurse 2 - General Ulcer CM Notes Start: 01/29/20 10:03 Freq: Status: Active Protocol: Activity Type Activity Date Activity User E-Sign Co-Sign Detail Recorded Client Recorded Date Recorded By Document 02/26/20 09:39 MW [id number] 02/26/20 09:46 MW 02/26/20 09:39 Wound Center Nurse 2 [Procedure/Treatment] #12 [facility] LLE -Time 09:40 -Correct Patient Yes -Correct Side, Site, Position Yes -Correct Procedure Yes -Procedure Performed Yes -Type of Procedure Debridement -Clinical Debridement Subcutaneous -Post Debridement Size (cm) - Length 3.0 -Post Debridement Size (cm) - Width 5.5 -Post Debridement Size (cm) - Depth 0.2 -Total Square Cm 16.50 -Wound/Ulcer Outcome Not Healed -Ulcer Cleansing Rinsed/ Irrigated with Saline -Foul Odor after Cleansing No -Bioengineered Tissue No -Bleeding Controlled with Pressure -Offloading No -Treatment Response Procedure Tolerated Well #11 Medial Inferior LLE -Time 09:40 -Correct Patient Yes -Correct Side, Site, Position Yes -Correct Procedure Yes -Procedure Performed Yes -Type of Procedure Debridement -Clinical Debridement Subcutaneous -Post Debridement Size (cm) - Length 3.7 -Post Debridement Size (cm) - Width 3.2 -Post Debridement Size (cm) - Depth 0.2 -Total Square Cm 11.84 -Wound/Ulcer Outcome Not Healed -Ulcer Cleansing Rinsed/ Irrigated with Saline -Foul Odor after Cleansing No -Bioengineered Tissue No -Bleeding Controlled with Pressure -Offloading No -Treatment Response Procedure Tolerated Well #10 Left Medial Ankle -Time 09:40 -Correct Patient Yes -Correct Side, Site, Position Yes -Correct Procedure Yes -Procedure Performed Yes -Type of Procedure Debridement -Clinical Debridement Subcutaneous -Post Debridement Size (cm) - Length 4.3 -Post Debridement Size (cm) - Width 2.3 -Post Debridement Size (cm) - Depth 0.2 -Total Square Cm 9.89 -Wound/Ulcer Outcome Not Healed -Ulcer Cleansing Rinsed/ Irrigated with Saline -Foul Odor after Cleansing No -Bioengineered Tissue No -Bleeding Controlled with Pressure -Offloading No -Treatment Response Procedure Tolerated Well [See Physician Procedure note for Specifics] Pain Scale: 0-10 Numeric [Pain] -Is Patient Pain Free? Yes Musculoskeletal: No Muscle Wasting Neurological: Cranial nerves II-XII grossly intact Psych/Mental Status: Normal Affect Debridement Note Post-Debridement Measurements/Treatment WC - Nurse 2 - General Ulcer CM Notes Start: 01/29/20 10:03 Freq: Status: Active Protocol: Activity Type Activity Date Activity User E-Sign Co-Sign Detail Recorded Client Recorded Date Recorded By Document 01/29/20 10:25 MW [id number] 01/29/20 10:28 MW Document 02/12/20 09:32 MW [id number] 02/12/20 09:40 MW Document 02/26/20 09:39 MW [id number] 02/26/20 09:46 MW 01/29/20 02/12/20 02/26/20 10: 09:32 09:39 Wound Center Nurse 2 #12 Medial Superior LLE -Time 10: 09:32 09:40 -Correct Patient Yes Yes Yes -Correct Side, Site, Position Yes Yes Yes -Correct Procedure Yes Yes Yes -Procedure Performed Yes Yes Yes -Type of Procedure Debridement Debridement Debridement -Clinical Debridement Subcutaneous Subcutaneous Subcutaneous -Post Debridement Size (cm) - Length 3.0 4.0 3.0 -Post Debridement Size (cm) - Width 6.5 5.5 5.5 -Post Debridement Size (cm) - Depth 0.1 0.1 0.2 -Total Square Cm 19.50 22.00 16.50 -Wound/Ulcer Outcome Not Healed Not Healed Not Healed -Ulcer Cleansing Rinsed/ Rinsed/ Rinsed/ Irrigated with Irrigated with Irrigated with Saline Saline Saline -Foul Odor after Cleansing No No No -Bioengineered Tissue No No No -Bleeding Controlled with Pressure Pressure Pressure -Offloading No No No -Treatment Response Procedure Procedure Procedure Tolerated Well Tolerated Well Tolerated Well #11 Medial Inferior LLE -Time 10: 09:33 09:40 -Correct Patient Yes Yes Yes -Correct Side, Site, Position Yes Yes Yes -Correct Procedure Yes Yes Yes -Procedure Performed Yes Yes Yes -Type of Procedure Debridement Debridement Debridement -Clinical Debridement Subcutaneous Subcutaneous Subcutaneous -Post Debridement Size (cm) - Length 4.5 4.0 3.7 -Post Debridement Size (cm) - Width 4.0 4.0 3.2 -Post Debridement Size (cm) - Depth 0.2 0.1 0.2 -Total Square Cm 18.00 16.00 11.84 -Wound/Ulcer Outcome Not Healed Not Healed Not Healed -Ulcer Cleansing Rinsed/ Rinsed/ Rinsed/ Irrigated with Irrigated with Irrigated with Saline Saline Saline -Foul Odor after Cleansing No No No -Bioengineered Tissue No No No -Bleeding Controlled with Pressure Pressure Pressure -Offloading No No No -Treatment Response Procedure Procedure Procedure Tolerated Well Tolerated Well Tolerated Well #10 Left Medial Ankle -Time 10: 09:33 09:40 -Correct Patient Yes Yes Yes -Correct Side, Site, Position Yes Yes Yes -Correct Procedure Yes Yes Yes -Procedure Performed Yes Yes Yes -Type of Procedure Debridement Debridement Debridement -Clinical Debridement Subcutaneous Subcutaneous Subcutaneous -Post Debridement Size (cm) - Length 4.5 5.0 4.3 -Post Debridement Size (cm) - Width 2.3 2.5 2.3 -Post Debridement Size (cm) - Depth 0.2 0.2 0.2 -Total Square Cm 10.35 12.50 9.89 -Wound/Ulcer Outcome Not Healed Not Healed Not Healed -Ulcer Cleansing Rinsed/ Wound Cleanser Rinsed/ Irrigated with Irrigated with Saline Saline -Foul Odor after Cleansing No No No -Bioengineered Tissue No No No -Bleeding Controlled with Pressure Pressure Pressure -Offloading No No No -Treatment Response Procedure Procedure Procedure Tolerated Well Tolerated Well Tolerated Well Pain Scale: 0-10 Numeric Is Patient Pain Free? Yes Yes Yes Wound debrided: Left leg (medial ankle) Type of Debridement: Excisional debridement Anesthesia Used: 4% Lidocaine Solution Depth: Down to and including healthy tissue, in the subcutaneous layer Percentage of wound debrided: 100 Instrument Used: 5mm curette Tissue Removed: Slough and devitalized tissue Severity: Fat Layer Exposed Amount of bleeding with debridement: Mild Bleeding Controlled with: Pressure Patient tolerated procedure well - Additional Wound Wound debrided: Left may superior Type of Debridement: Excisional debridement Anesthesia Used: 4% Lidocaine Solution Depth: Down to and including healthy tissue, in the subcutaneous layer Percentage of wound debrided: 100 Instrument Used: 5mm curette Tissue Removed: Slough and devitalized tissue Severity: Fat Layer Exposed Amount of bleeding with debridement: Mild Bleeding Controlled with: Pressure Patient tolerated procedure: Patient tolerated procedure well - Additional Wound Wound debrided: Left may inferior Type of Debridement: Excisional debridement Anesthesia Used: 4% Lidocaine Solution Depth: Down to and including healthy tissue, in the subcutaneous layer Percentage of wound debrided: 100 Instrument Used: 5mm curette Tissue Removed: Slough and devitalized tissue Severity: Fat Layer Exposed Amount of bleeding with debridement: Mild Bleeding Controlled with: Pressure Patient tolerated procedure: Patient tolerated procedure well Assessment/Plan Active Problems Ulcer of left lower extremity with fat layer exposed (Chronic) PVD (peripheral vascular disease) (Chronic) Varicose veins with ulcer and inflammation (Chronic) Assessment: Chronic left leg ulcer. Venous insufficiency. Leg edema. Delayed ulcer healing. Plan: Debridement done as documented above, procedure was well tolerated. Cultures taken from the left medial ankle due to yellowish drainage which karissa álvarez states is chronic. Denies pain or other concerns. Continue [employer] ag with keramax over top. Continue use of compression stockings, leg elevation and exercise. Increased protein intake is also recommended. His questions were answered and he was advised to call with any further questions or concerns. Follow-up in 2 weeks. This note was generated with [facility] dictation software. It may contain incorrect words, spelling, and punctuation that were not noted in checking the note before signing. [id number]: [id number] Lakeisha subq tissue 20 sq cm/< Add On Codes: [id number] Lakeisha subq tissue add-on - General square centimeters debrided please refer to clinical note.
== END 2020-02-26 23:59 ==
LOC: WC 09:00
PROVIDERS: Referring Provider Podiatrist; Visit Provider Internal Medicine
DX: I83.208 Varicose veins of unspecified lower extremity with both ulcer of other part of lower extremity and inflammation (principal); L97.322 Non-pressure chronic ulcer of left ankle with fat layer exposed; L97.822 Non-pressure chronic ulcer of other part of left lower leg with fat layer exposed; I73.9 Peripheral vascular disease, unspecified; I87.332 Chronic venous hypertension (idiopathic) with ulcer and inflammation of left lower extremity; R60.0 Localized edema; F17.200 Nicotine dependence, unspecified, uncomplicated; Z91.19 Patient's noncompliance with other medical treatment and regimen
CPT/HCPCS: 11042; 11045; 87070; 87075; 87077; 87186; 87205

== ENCOUNTER 2020-03-25 08:00 | Outpatient (RCR) | payer BC, SELFPAY ==
[2020-02-27 00:09] VITALS: BP 157/94; PULSE 79; RESP 14; TEMP 36
[2020-03-11 09:07] VITALS: BP 157/94; PULSE 87; RESP 20; TEMP 35.9; BMI 31.4
--- NOTE | 2020-03-11 10:08 | PN.PCM_ITS ---
(1) Ulcer of left lower extremity with fat layer exposed Status: Chronic Current Visit: Yes Code(s): L97.922 - Non-pressure chronic ulcer of unspecified part of left lower leg with fat layer exposed (2) Delayed wound healing Status: Chronic Current Visit: Yes Code(s): T14.8XXD - Other injury of unspecified body region, subsequent encounter (3) Peripheral vascular occlusive disease Status: Chronic Current Visit: Yes Code(s): I73.9 - Peripheral vascular disease, unspecified Type of Wound Date of Service: 03/11/20 Chief Complaint: ulcers to the left lower leg History of Wound: This is a 54-year-old male presents to wound healing center with a long-standing history of chronic venous insufficiency, chronic venous hypertension, lower extremity edema, lower extremity pain, and chronic left lower extremity ulcer. 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 He is currently wearing graduated compression stockings which are documented to be 20-30 mmHg compression and these are thigh high. He reports great compliance with use. He is also had previous arterial work-up with no intervention recommended by letter, his vascular surgeon. He denies taking nutritional supplementation. He saw dermatology and had a biopsy of the ulcer site. He also was previously treated by infectious disease for various contaminations and infections. He is not antibiotics at this time nor does he have any redness or odor coming from the wound. He denies fever, chill, nausea, vomiting, loss of appetite. Progress of Wound: New concerns. Some worsening of left medial ankle ulcer noted. - Physical Exam Vital Signs Temp Pulse Resp BP 96.7 F L 87 20 H 157/94 H 03/11/20 09:07 03/11/20 09:07 03/11/20 09:07 03/11/20 09:07 General: Alert, Oriented x3, Cooperative, No apparent distress HEENT: Atraumatic, Normocephalic Oral: Moist Mucosa Neck: Supple Extremities: No cyanosis, Edema Skin: Ulcer/ Wound Wound Measurements and Assessment WC - Nurse 1 - General Ulcer Measurement Start: 03/11/20 09:07 Freq: Status: Active Protocol: Activity Type Activity Date Activity User E-Sign Co-Sign Detail Recorded Client Recorded Date Recorded By Document 03/11/20 09:07 TIFFANY [id number] 03/11/20 09:18 TIFFANY 03/11/20 09:07 Wound Center Nurse 1 [Ulcer Assessment] #12 Medial Superior LLE -Current Size (cm) - Length 4.4 -Current Size (cm) - Width 4.4 -Current Size (cm) - Depth 0.1 -Total Square Cm 19.36 -Photo Taken Yes -Exudate Amt Small -Exudate Type Serosanguineous -Wound Margin Distinct, Outline Attached -Granulation Amt Medium (34-66%) -Granulation Quality Red -Necrotic Tissue Type Adherent Slough -Structure Exposed N/A -Texture (Ara-wound Skin Appearance) Scarring -Moisture (Ara-wound Skin Appearance Dry/Scaly ) -Color (Ara-wound Skin Appearance) Hemosiderin Staining -Temperature (Ara-wound Skin No Abnormality Appearance) (Pt Warm) -Tenderness on Palpation (Ara-wound No Skin Appearance) -Ulcer Cleansing Wound Cleanser -Foul Odor after Cleansing No -Anesthetic Used 4% Lidocaine Solution #11 Medial Inferior LLE -Current Size (cm) - Length 3.3 -Current Size (cm) - Width 3.7 -Current Size (cm) - Depth 0.1 -Total Square Cm 12.21 -Photo Taken Yes -Exudate Amt Small -Exudate Type Serosanguineous -Wound Margin Distinct, Outline Attached -Granulation Amt Medium (34-66%) -Granulation Quality Red -Necrosis Amt Medium (34-66%) -Necrotic Tissue Type Adherent Slough -Structure Exposed N/A -Texture (Ara-wound Skin Appearance) Scarring -Moisture (Ara-wound Skin Appearance Dry/Scaly ) -Color (Ara-wound Skin Appearance) Hemosiderin Staining -Temperature (Ara-wound Skin No Abnormality Appearance) (Pt Warm) -Tenderness on Palpation (Ara-wound No Skin Appearance) -Ulcer Cleansing Wound Cleanser -Foul Odor after Cleansing No -Anesthetic Used 4% Lidocaine Solution #10 Left Medial Ankle -Current Size (cm) - Length 4 -Current Size (cm) - Width 4.7 -Current Size (cm) - Depth 0.2 -Total Square Cm 18.8 -Photo Taken Yes -Exudate Amt Small -Exudate Type Serosanguineous -Wound Margin Distinct, Outline Attached -Granulation Amt Medium (34-66%) -Granulation Quality Red -Necrosis Amt Medium (34-66%) -Necrotic Tissue Type Adherent Slough -Structure Exposed N/A -Texture (Ara-wound Skin Appearance) Scarring -Moisture (Ara-wound Skin Appearance Dry/Scaly ) -Color (Ara-wound Skin Appearance) Hemosiderin Staining -Temperature (Ara-wound Skin No Abnormality Appearance) (Pt Warm) -Tenderness on Palpation (Ara-wound No Skin Appearance) -Ulcer Cleansing Wound Cleanser -Foul Odor after Cleansing No -Anesthetic Used 4% Lidocaine Solution [Edema Assessment] -Left Calf (cm) 35.3 -Left Ankle (cm) 22.6 WC - Nurse 2 - General Ulcer CM Notes Start: 03/11/20 09:07 Freq: Status: Active Protocol: Activity Type Activity Date Activity User E-Sign Co-Sign Detail Recorded Client Recorded Date Recorded By Document 03/11/20 09:24 MW [id number] 03/11/20 09:31 MW 03/11/20 09:24 Wound Center Nurse 2 [Procedure/Treatment] #12 Medial Superior LLE -Time 09:25 -Correct Patient Yes -Correct Side, Site, Position Yes -Correct Procedure Yes -Procedure Performed Yes -Type of Procedure Debridement -Clinical Debridement Subcutaneous -Post Debridement Size (cm) - Length 3.0 -Post Debridement Size (cm) - Width 5.0 -Post Debridement Size (cm) - Depth 0.1 -Total Square Cm 15.00 -Wound/Ulcer Outcome Not Healed -Ulcer Cleansing Rinsed/ Irrigated with Saline -Foul Odor after Cleansing No -Bioengineered Tissue No -Bleeding Controlled with Pressure -Offloading No -Treatment Response Procedure Tolerated Well #11 Medial Inferior LLE -Time 09:28 -Correct Patient Yes -Correct Side, Site, Position Yes -Correct Procedure Yes -Procedure Performed Yes -Type of Procedure Debridement -Clinical Debridement Subcutaneous -Post Debridement Size (cm) - Length 3.5 -Post Debridement Size (cm) - Width 3.0 -Post Debridement Size (cm) - Depth 0.2 -Total Square Cm 10.50 -Wound/Ulcer Outcome Not Healed -Ulcer Cleansing Rinsed/ Irrigated with Saline -Foul Odor after Cleansing No -Bioengineered Tissue No -Bleeding Controlled with Pressure -Offloading No -Treatment Response Procedure Tolerated Well #10 Left Medial Ankle -Time 09:28 -Correct Patient Yes -Correct Side, Site, Position Yes -Correct Procedure Yes -Procedure Performed Yes -Type of Procedure Debridement -Clinical Debridement Subcutaneous -Post Debridement Size (cm) - Length 4.8 -Post Debridement Size (cm) - Width 2.9 -Post Debridement Size (cm) - Depth 0.2 -Total Square Cm 13.92 -Wound/Ulcer Outcome Not Healed -Ulcer Cleansing Rinsed/ Irrigated with Saline -Foul Odor after Cleansing No -Bioengineered Tissue No -Bleeding Controlled with Pressure -Offloading No -Treatment Response Procedure Tolerated Well [See Physician Procedure note for Specifics] Pain Scale: 0-10 Numeric [Pain] -Is Patient Pain Free? Yes Musculoskeletal: No Muscle Wasting Neurological: Cranial nerves II-XII grossly intact Psych/Mental Status: Normal Affect Debridement Note Post-Debridement Measurements/Treatment WC - Nurse 2 - General Ulcer CM Notes Start: 03/11/20 09:07 Freq: Status: Active Protocol: Activity Type Activity Date Activity User E-Sign Co-Sign Detail Recorded Client Recorded Date Recorded By Document 03/11/20 09:24 MW [id number] 03/11/20 09:31 MW 03/11/20 09:24 Wound Center Nurse 2 #12 Medial Superior LLE -Time 09:25 -Correct Patient Yes -Correct Side, Site, Position Yes -Correct Procedure Yes -Procedure Performed Yes -Type of Procedure Debridement -Clinical Debridement Subcutaneous -Post Debridement Size (cm) - Length 3.0 -Post Debridement Size (cm) - Width 5.0 -Post Debridement Size (cm) - Depth 0.1 -Total Square Cm 15.00 -Wound/Ulcer Outcome Not Healed -Ulcer Cleansing Rinsed/ Irrigated with Saline -Foul Odor after Cleansing No -Bioengineered Tissue No -Bleeding Controlled with Pressure -Offloading No -Treatment Response Procedure Tolerated Well #11 Medial Inferior LLE -Time 09:28 -Correct Patient Yes -Correct Side, Site, Position Yes -Correct Procedure Yes -Procedure Performed Yes -Type of Procedure Debridement -Clinical Debridement Subcutaneous -Post Debridement Size (cm) - Length 3.5 -Post Debridement Size (cm) - Width 3.0 -Post Debridement Size (cm) - Depth 0.2 -Total Square Cm 10.50 -Wound/Ulcer Outcome Not Healed -Ulcer Cleansing Rinsed/ Irrigated with Saline -Foul Odor after Cleansing No -Bioengineered Tissue No -Bleeding Controlled with Pressure -Offloading No -Treatment Response Procedure Tolerated Well #10 Left Medial Ankle -Time 09:28 -Correct Patient Yes -Correct Side, Site, Position Yes -Correct Procedure Yes -Procedure Performed Yes -Type of Procedure Debridement -Clinical Debridement Subcutaneous -Post Debridement Size (cm) - Length 4.8 -Post Debridement Size (cm) - Width 2.9 -Post Debridement Size (cm) - Depth 0.2 -Total Square Cm 13.92 -Wound/Ulcer Outcome Not Healed -Ulcer Cleansing Rinsed/ Irrigated with Saline -Foul Odor after Cleansing No -Bioengineered Tissue No -Bleeding Controlled with Pressure -Offloading No -Treatment Response Procedure Tolerated Well Pain Scale: 0-10 Numeric Is Patient Pain Free? Yes Wound debrided: Left lower extremity superior Type of Debridement: Excisional debridement Anesthesia Used: 4% Lidocaine Solution Depth: Down to and including healthy tissue, in the subcutaneous layer Percentage of wound debrided: 100 Instrument Used: 5mm curette Tissue Removed: Slough and devitalized tissue Severity: Fat Layer Exposed Amount of bleeding with debridement: Mild Bleeding Controlled with: Pressure Patient tolerated procedure well - Additional Wound Wound debrided: Left lower extremity inferior Type of Debridement: Excisional debridement Anesthesia Used: 4% Lidocaine Solution Depth: Down to and including healthy tissue, in the subcutaneous layer Percentage of wound debrided: 100 Instrument Used: 5mm curette Tissue Removed: Slough and devitalized tissue Severity: Fat Layer Exposed Amount of bleeding with debridement: Mild Bleeding Controlled with: Pressure Patient tolerated procedure: Patient tolerated procedure well - Additional Wound Wound debrided: Left medial ankle Type of Debridement: Excisional debridement Anesthesia Used: 4% Lidocaine Solution Depth: Down to and including healthy tissue, in the subcutaneous layer Percentage of wound debrided: 100 Instrument Used: 5mm curette Tissue Removed: Slough and devitalized tissue Severity: Fat Layer Exposed Amount of bleeding with debridement: Mild Bleeding Controlled with: Pressure Patient tolerated procedure: Patient tolerated procedure well Assessment/Plan Active Problems Ulcer of left lower extremity with fat layer exposed (Chronic) Delayed wound healing (Chronic) Peripheral vascular occlusive disease (Chronic) Assessment: Chronic left leg ulcer. Venous insufficiency. Leg edema. Delayed ulcer healing. Plan: Debridement done as documented above, procedure was well tolerated. Cultures reviewed. Similar growth as November. Chronic contamination. Some worsening of left medial ankle ulcer however, will hold off antibiotic for now. He was advised to call if he notes any worsening drainage, pain or change in ulcer size. Otherwise, continue [place] ag with keramax over top. Continue use of compression stockings, leg elevation and exercise. Increased protein intake is also recommended. His questions were answered and he was advised to call with any further questions or concerns. Follow-up in 2 weeks. This note was generated with [employer] dictation software. It may contain incorrect words, spelling, and punctuation that were not noted in checking the note before signing. [id number]: [id number] Lakeisha subq tissue 20 sq cm/< Add On Codes: [id number] Lakeisha subq tissue add-on
[2020-03-25 08:56] VITALS: BP 146/108; PULSE 93; RESP 16; TEMP 36.4; BMI 31.4
--- NOTE | 2020-03-25 10:03 | PN.PCM_ITS ---
(1) Ulcer of left lower extremity with fat layer exposed Status: Chronic Current Visit: Yes Code(s): L97.922 - Non-pressure chronic ulcer of unspecified part of left lower leg with fat layer exposed (2) Delayed wound healing Status: Chronic Current Visit: Yes Code(s): T14.8XXD - Other injury of unspecified body region, subsequent encounter (3) Peripheral vascular occlusive disease Status: Chronic Current Visit: Yes Code(s): I73.9 - Peripheral vascular disease, unspecified Type of Wound Date of Service: 03/25/20 Chief Complaint: ulcers to the left lower leg History of Wound: This is a 54-year-old male presents to wound healing center with a long-standing history of chronic venous insufficiency, chronic venous hypertension, lower extremity edema, lower extremity pain, and chronic left lower extremity ulcer. 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 He is currently wearing graduated compression stockings which are documented to be 20-30 mmHg compression and these are thigh high. He reports great compliance with use. He is also had previous arterial work-up with no intervention recommended by letter, his vascular surgeon. He denies taking nutritional supplementation. He saw dermatology and had a biopsy of the ulcer site. He also was previously treated by infectious disease for various contaminations and infections. He is not antibiotics at this time nor does he have any redness or odor coming from the wound. He denies fever, chill, nausea, vomiting, loss of appetite. Progress of Wound: Presents with new left dorsal foot wound and left may wound. - Physical Exam Vital Signs Temp Pulse Resp BP 97.6 F L 93 16 146/108 H 03/25/20 08:56 03/25/20 08:56 03/25/20 08:56 03/25/20 08:56 General: Alert, Oriented x3, Cooperative, No apparent distress HEENT: Atraumatic, Normocephalic Oral: Moist Mucosa Neck: Supple Lungs: Normal air movement Abdomen: Non Tender, Obese Extremities: No cyanosis Wound Measurements and Assessment WC - Nurse 1 - General Ulcer Measurement Start: 03/11/20 09:07 Freq: Status: Active Protocol: Activity Type Activity Date Activity User E-Sign Co-Sign Detail Recorded Client Recorded Date Recorded By Document 03/25/20 08:56 DL [id number] 03/25/20 09:08 DL 03/25/20 08:56 Wound Center Nurse 1 [Ulcer Assessment] #13 L Med Dorsal foot -Current Size (cm) - Length 3.8 -Current Size (cm) - Width 0.8 -Current Size (cm) - Depth 0.2 -Total Square Cm 3.04 -Photo Taken Yes -Exudate Amt Small -Exudate Type Serosanguineous -Wound Margin Distinct, Outline Attached -Granulation Amt Medium (34-66%) -Granulation Quality Pale,[place] -Necrosis Amt Medium (34-66%) -Necrotic Tissue Type Adherent Slough -Structure Exposed N/A -Texture (Ara-wound Skin Appearance) Scarring -Moisture (Ara-wound Skin Appearance Dry/Scaly ) -Color (Ara-wound Skin Appearance) Hemosiderin Staining -Temperature (Ara-wound Skin No Abnormality Appearance) (Pt Warm) -Tenderness on Palpation (Ara-wound No Skin Appearance) -Ulcer Cleansing Wound Cleanser -Foul Odor after Cleansing No -Anesthetic Used 4% Lidocaine Solution #12 Medial Superior LLE -Combined with other wound No [Edema Assessment] -Left Calf (cm) 34 -Left Ankle (cm) 22.8 WC - Nurse 2 - General Ulcer CM Notes Start: 03/11/20 09:07 Freq: Status: Active Protocol: Activity Type Activity Date Activity User E-Sign Co-Sign Detail Recorded Client Recorded Date Recorded By Document 03/25/20 09:50 PL [id number] 03/25/20 09:52 PL 03/25/20 09:50 Wound Center Nurse 2 [Procedure/Treatment] #12 Medial Superior LLE -Time 09:20 -Correct Patient Yes -Correct Side, Site, Position Yes -Correct Procedure Yes -Procedure Performed Yes -Type of Procedure Debridement -Clinical Debridement Subcutaneous -Post Debridement Size (cm) - Length 7.5 -Post Debridement Size (cm) - Width 6 -Post Debridement Size (cm) - Depth 0.1 -Total Square Cm 45.0 -Wound/Ulcer Outcome Not Healed -Ulcer Cleansing Rinsed/ Irrigated with Saline -Foul Odor after Cleansing No -Bleeding Controlled with Pressure -Treatment Response Procedure Tolerated Well #11 Medial Inferior LLE -Time 09:20 -Correct Patient Yes -Correct Side, Site, Position Yes -Correct Procedure Yes -Procedure Performed Yes -Type of Procedure Debridement -Clinical Debridement Subcutaneous -Post Debridement Size (cm) - Length 3.8 -Post Debridement Size (cm) - Width 0.7 -Post Debridement Size (cm) - Depth 0.1 -Total Square Cm 2.66 -Wound/Ulcer Outcome Not Healed -Ulcer Cleansing Rinsed/ Irrigated with Saline -Foul Odor after Cleansing No -Bleeding Controlled with Pressure -Treatment Response Procedure Tolerated Well #10 Left Medial Ankle -Time 09:20 -Correct Patient Yes -Correct Side, Site, Position Yes -Correct Procedure Yes -Procedure Performed Yes -Type of Procedure Debridement -Clinical Debridement Subcutaneous -Post Debridement Size (cm) - Length 5 -Post Debridement Size (cm) - Width 2.3 -Post Debridement Size (cm) - Depth 0.2 -Total Square Cm 11.5 -Wound/Ulcer Outcome Not Healed -Ulcer Cleansing Rinsed/ Irrigated with Saline -Foul Odor after Cleansing No -Treatment Response Procedure Tolerated Well [See Physician Procedure note for Specifics] Pain Scale: 0-10 Numeric [Pain] -Is Patient Pain Free? Yes Musculoskeletal: No Muscle Wasting Neurological: Cranial nerves II-XII grossly intact Psych/Mental Status: Normal Affect Debridement Note Post-Debridement Measurements/Treatment WC - Nurse 2 - General Ulcer CM Notes Start: 03/11/20 09:07 Freq: Status: Active Protocol: Activity Type Activity Date Activity User E-Sign Co-Sign Detail Recorded Client Recorded Date Recorded By Document 03/11/20 09:24 MW [id number] 03/11/20 09:31 MW Document 03/25/20 09:50 PL [id number] 03/25/20 09:52 PL 03/11/20 03/25/20 09:24 09:50 Wound Center Nurse 2 #12 Medial Superior LLE -Time 09:25 09:20 -Correct Patient Yes Yes -Correct Side, Site, Position Yes Yes -Correct Procedure Yes Yes -Procedure Performed Yes Yes -Type of Procedure Debridement Debridement -Clinical Debridement Subcutaneous Subcutaneous -Post Debridement Size (cm) - Length 3.0 7.5 -Post Debridement Size (cm) - Width 5.0 6 -Post Debridement Size (cm) - Depth 0.1 0.1 -Total Square Cm 15.00 45.0 -Wound/Ulcer Outcome Not Healed Not Healed -Ulcer Cleansing Rinsed/ Rinsed/ Irrigated with Irrigated with Saline Saline -Foul Odor after Cleansing No No -Bioengineered Tissue No -Bleeding Controlled with Pressure Pressure -Offloading No -Treatment Response Procedure Procedure Tolerated Well Tolerated Well #11 Medial Inferior LLE -Time : 09:20 -Correct Patient Yes Yes -Correct Side, Site, Position Yes Yes -Correct Procedure Yes Yes -Procedure Performed Yes Yes -Type of Procedure Debridement Debridement -Clinical Debridement Subcutaneous Subcutaneous -Post Debridement Size (cm) - Length 3.5 3.8 -Post Debridement Size (cm) - Width 3.0 0.7 -Post Debridement Size (cm) - Depth 0.2 0.1 -Total Square Cm 10.50 2.66 -Wound/Ulcer Outcome Not Healed Not Healed -Ulcer Cleansing Rinsed/ Rinsed/ Irrigated with Irrigated with Saline Saline -Foul Odor after Cleansing No No -Bioengineered Tissue No -Bleeding Controlled with Pressure Pressure -Offloading No -Treatment Response Procedure Procedure Tolerated Well Tolerated Well #10 Left Medial Ankle -Time : 09:20 -Correct Patient Yes Yes -Correct Side, Site, Position Yes Yes -Correct Procedure Yes Yes -Procedure Performed Yes Yes -Type of Procedure Debridement Debridement -Clinical Debridement Subcutaneous Subcutaneous -Post Debridement Size (cm) - Length 4.8 5 -Post Debridement Size (cm) - Width 2.9 2.3 -Post Debridement Size (cm) - Depth 0.2 0.2 -Total Square Cm 13.92 11.5 -Wound/Ulcer Outcome Not Healed Not Healed -Ulcer Cleansing Rinsed/ Rinsed/ Irrigated with Irrigated with Saline Saline -Foul Odor after Cleansing No No -Bioengineered Tissue No -Bleeding Controlled with Pressure -Offloading No -Treatment Response Procedure Procedure Tolerated Well Tolerated Well Pain Scale: 0-10 Numeric Is Patient Pain Free? Yes Yes Wound debrided: Left dorsal foot Type of Debridement: Excisional debridement Anesthesia Used: 4% Lidocaine Solution Depth: Down to and including healthy tissue, in the subcutaneous layer Percentage of wound debrided: 100 Instrument Used: 5mm curette Tissue Removed: Slough and devitalized tissue Severity: Fat Layer Exposed Amount of bleeding with debridement: Mild Bleeding Controlled with: Pressure Patient tolerated procedure well - Additional Wound Wound debrided: Left medial ankle Type of Debridement: Excisional debridement Anesthesia Used: 4% Lidocaine Solution Depth: Down to and including healthy tissue, in the subcutaneous layer Percentage of wound debrided: 100 Instrument Used: 5mm curette Tissue Removed: Slough and devitalized tissue Severity: Fat Layer Exposed Amount of bleeding with debridement: Mild Bleeding Controlled with: Pressure Patient tolerated procedure: Patient tolerated procedure well - Additional Wound Wound debrided: Left may inferior Type of Debridement: Excisional debridement Anesthesia Used: 4% Lidocaine Solution Depth: Down to and including healthy tissue, in the subcutaneous layer Percentage of wound debrided: 100 Instrument Used: 5mm curette Tissue Removed: Slough and devitalized tissue Severity: Fat Layer Exposed Amount of bleeding with debridement: Mild Bleeding Controlled with: Pressure Patient tolerated procedure: Patient tolerated procedure well - Additional Wound Wound debrided: Left may superior cluster Type of Debridement: Excisional debridement Anesthesia Used: 4% Lidocaine Solution Depth: Down to and including healthy tissue, in the subcutaneous layer Percentage of wound debrided: 100 Instrument Used: 5mm curette Tissue Removed: Slough and devitalized tissue Severity: Fat Layer Exposed Amount of bleeding with debridement: Mild Bleeding Controlled with: Pressure Patient tolerated procedure: Patient tolerated procedure well Assessment/Plan Active Problems Ulcer of left lower extremity with fat layer exposed (Chronic) Delayed wound healing (Chronic) Peripheral vascular occlusive disease (Chronic) Assessment: Chronic left leg ulcer. Venous insufficiency. Leg edema. Delayed ulcer healing. Plan: Debridement done as documented above, procedure was well tolerated. Presents with new wounds. States that he bumped into surfaces. Left superior may now clustered. Previous ulceration with some improvement. Continue aquacel ag with keramax over top. Continue use of compression stockings, leg elevation and exercise. Increased protein intake , protein supplements, zinc and vitamin C also recommended. His questions were answered and he was advised to call with any further questions or concerns. Follow-up in 2 weeks. This note was generated with [employer] dictation software. It may contain incorrect words, spelling, and punctuation that were not noted in checking the note before signing. [id number]: [id number] Lakeisha subq tissue 20 sq cm/< Add On Codes: [id number] Lakeisha subq tissue add-on - Additional square centimeter debrided, please refer to clinical note.
== END 2020-03-28 23:59 ==
LOC: WC 08:00
PROVIDERS: Referring Provider Podiatrist; Visit Provider Internal Medicine
DX: L97.322 Non-pressure chronic ulcer of left ankle with fat layer exposed (principal); L97.822 Non-pressure chronic ulcer of other part of left lower leg with fat layer exposed; L97.522 Non-pressure chronic ulcer of other part of left foot with fat layer exposed; I73.9 Peripheral vascular disease, unspecified; I87.332 Chronic venous hypertension (idiopathic) with ulcer and inflammation of left lower extremity; R60.0 Localized edema; I87.2 Venous insufficiency (chronic) (peripheral)
CPT/HCPCS: 11042; 11045

== ENCOUNTER 2020-04-22 09:00 | Outpatient (RCR) | payer BC, SELFPAY ==
[2020-03-29 00:21] VITALS: BP 146/108; PULSE 93; RESP 16; TEMP 36.4
[2020-04-08 09:03] VITALS: BMI 31.4
--- NOTE | 2020-04-08 10:41 | PN.PCM_ITS ---
(1) Ulcer of left lower extremity with fat layer exposed Status: Chronic Current Visit: Yes Code(s): L97.922 - Non-pressure chronic ulcer of unspecified part of left lower leg with fat layer exposed (2) Chronic venous insufficiency Status: Chronic Current Visit: Yes (3) Delayed wound healing Status: Chronic Current Visit: No Code(s): T14.8XXD - Other injury of unspecified body region, subsequent encounter (4) Peripheral vascular occlusive disease Status: Chronic Current Visit: Yes Code(s): I73.9 - Peripheral vascular disease, unspecified Type of Wound Date of Service: 04/08/20 Chief Complaint: ulcers to the left lower leg History of Wound: This is a 54-year-old male presents to wound healing center with a long-standing history of chronic venous insufficiency, chronic venous hypertension, lower extremity edema, lower extremity pain, and chronic left lower extremity ulcer. 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 He is currently wearing graduated compression stockings which are documented to be 20-30 mmHg compression and these are thigh high. He reports great compliance with use. He is also had previous arterial work-up with no intervention recommended by letter, his vascular surgeon. He denies taking nutritional supplementation. He saw dermatology and had a biopsy of the ulcer site. He also was previously treated by infectious disease for various contaminations and infections. He is not antibiotics at this time nor does he have any redness or odor coming from the wound. He denies fever, chill, nausea, vomiting, loss of appetite. Progress of Wound: Stable. No significant changes. - Physical Exam Vital Signs Temp Pulse Resp BP 97.6 F L 93 16 146/108 H 03/29/20 00:21 03/29/20 00:21 03/29/20 00:21 03/29/20 00:21 General: Alert, Oriented x3, Cooperative, No apparent distress HEENT: Atraumatic, Normocephalic Oral: Moist Mucosa Neck: Supple Lungs: Normal air movement Abdomen: Non Tender, Obese Wound Measurements and Assessment WC - Nurse 1 - General Ulcer Measurement Start: 04/08/20 09:01 Freq: Status: Active Protocol: Activity Type Activity Date Activity User E-Sign Co-Sign Detail Recorded Client Recorded Date Recorded By Document 04/08/20 09:03 PL [id number] 04/08/20 09:12 [email or web address] 04/08/20 09:03 Wound Center Nurse 1 [Ulcer Assessment] #13 L Med Dorsal foot -Combined with other wound No -Current Size (cm) - Length 4.0 -Current Size (cm) - Width 0.4 -Current Size (cm) - Depth 0.1 -Total Square Cm 1.60 -Photo Taken No -Epithelialization Small 1-33% -Tunneling No -Undermining/Tunneling No -Exudate Amt Medium -Exudate Type Serosanguineous -Granulation Amt Large (67-100%) -Granulation Quality [place] -Slough/Fibrin Yes -Necrosis Amt Small (1-33%) -Necrotic Tissue Type Adherent Slough -Texture (Ara-wound Skin Appearance) No Abnormality -Moisture (Aar-wound Skin Appearance No Abnormality ) -Color (Ara-wound Skin Appearance) No Abnormality -Temperature (Ara-wound Skin No Abnormality Appearance) (Pt Warm) -Tenderness on Palpation (Ara-wound No Skin Appearance) -Ulcer Cleansing Rinsed/ Irrigated with Saline -Anesthetic Used 4% Lidocaine Solution #12 Medial Superior LLE -Combined with other wound No -Current Size (cm) - Length 4.5 -Current Size (cm) - Width 4.5 -Current Size (cm) - Depth 0.1 -Total Square Cm 20.25 -Photo Taken No -Epithelialization Small 1-33% -Tunneling No -Undermining/Tunneling No -Exudate Amt Medium -Exudate Type Serosanguineous -Granulation Amt Large (67-100%) -Granulation Quality [place],Red -Slough/Fibrin Yes -Necrosis Amt Small (1-33%) -Necrotic Tissue Type Adherent Slough -Texture (Ara-wound Skin Appearance) No Abnormality -Moisture (Ara-wound Skin Appearance Dry/Scaly ) -Color (Ara-wound Skin Appearance) No Abnormality -Temperature (Ara-wound Skin No Abnormality Appearance) (Pt Warm) -Ulcer Cleansing Rinsed/ Irrigated with Saline -Anesthetic Used 4% Lidocaine Solution #11 Medial Inferior LLE -Combined with other wound No -Current Size (cm) - Length 3.0 -Current Size (cm) - Width 3.0 -Current Size (cm) - Depth 0.2 -Total Square Cm 9.00 -Photo Taken No -Epithelialization None Present -Tunneling No -Undermining/Tunneling No -Exudate Amt Medium -Exudate Type Serosanguineous -Granulation Amt Medium (34-66%) -Granulation Quality [place] -Slough/Fibrin Yes -Necrosis Amt Medium (34-66%) -Necrotic Tissue Type Adherent Slough -Texture (Ara-wound Skin Appearance) No Abnormality -Moisture (Ara-wound Skin Appearance Dry/Scaly ) -Color (Ara-wound Skin Appearance) No Abnormality -Temperature (Ara-wound Skin No Abnormality Appearance) (Pt Warm) -Ulcer Cleansing Rinsed/ Irrigated with Saline -Anesthetic Used 4% Lidocaine Solution #10 Left Medial Ankle -Combined with other wound No -Current Size (cm) - Length 3.0 -Current Size (cm) - Width 5.0 -Current Size (cm) - Depth 0.2 -Total Square Cm 15.00 -Photo Taken No -Epithelialization None Present -Tunneling No -Undermining/Tunneling No -Exudate Amt Medium -Exudate Type Serosanguineous -Granulation Amt Medium (34-66%) -Granulation Quality [place] -Slough/Fibrin Yes -Necrosis Amt Medium (34-66%) -Necrotic Tissue Type Adherent Slough -Texture (Ara-wound Skin Appearance) No Abnormality -Moisture (Ara-wound Skin Appearance Dry/Scaly ) -Color (Ara-wound Skin Appearance) No Abnormality -Temperature (Ara-wound Skin No Abnormality Appearance) (Pt Warm) -Tenderness on Palpation (Ara-wound No Skin Appearance) -Ulcer Cleansing Rinsed/ Irrigated with Saline -Anesthetic Used 4% Lidocaine Solution WC - Nurse 2 - General Ulcer CM Notes Start: 04/08/20 09:01 Freq: Status: Active Protocol: Activity Type Activity Date Activity User E-Sign Co-Sign Detail Recorded Client Recorded Date Recorded By Document 04/08/20 09:45 MW [id number] 04/08/20 09:54 MW 04/08/20 09:45 Wound Center Nurse 2 [Procedure/Treatment] #13 L Med Dorsal foot -Time 09:45 -Wound/Ulcer Outcome Converted #12 Medial Superior LLE -Time 09:45 -Correct Patient Yes -Correct Side, Site, Position Yes -Correct Procedure Yes -Procedure Performed Yes -Type of Procedure Debridement -Clinical Debridement Subcutaneous -Post Debridement Size (cm) - Length 4.0 -Post Debridement Size (cm) - Width 4.5 -Post Debridement Size (cm) - Depth 0.1 -Total Square Cm 18.00 -Wound/Ulcer Outcome Not Healed -Ulcer Cleansing Rinsed/ Irrigated with Saline -Foul Odor after Cleansing No -Bioengineered Tissue No -Bleeding Controlled with Pressure -Offloading No -Treatment Response Procedure Tolerated Well #11 Medial Inferior LLE -Time 09:45 -Correct Patient Yes -Correct Side, Site, Position Yes -Correct Procedure Yes -Procedure Performed Yes -Type of Procedure Debridement -Clinical Debridement Subcutaneous -Post Debridement Size (cm) - Length 4.5 -Post Debridement Size (cm) - Width 3.0 -Post Debridement Size (cm) - Depth 0.1 -Total Square Cm 13.50 -Wound/Ulcer Outcome Not Healed -Ulcer Cleansing Rinsed/ Irrigated with Saline -Foul Odor after Cleansing No -Bioengineered Tissue No -Bleeding Controlled with Pressure -Offloading No -Treatment Response Procedure Tolerated Well #10 Left Medial Ankle -Time 09:46 -Correct Patient Yes -Correct Side, Site, Position Yes -Correct Procedure Yes -Procedure Performed Yes -Type of Procedure Debridement -Clinical Debridement Subcutaneous -Post Debridement Size (cm) - Length 4.5 -Post Debridement Size (cm) - Width 8.0 -Post Debridement Size (cm) - Depth 0.1 -Total Square Cm 36.00 -Wound/Ulcer Outcome Not Healed -Ulcer Cleansing Rinsed/ Irrigated with Saline -Foul Odor after Cleansing No -Bioengineered Tissue No -Bleeding Controlled with Pressure -Offloading No -Treatment Response Procedure Tolerated Well [See Physician Procedure note for Specifics] Pain Scale: 0-10 Numeric [Pain] -Is Patient Pain Free? Yes Musculoskeletal: No Muscle Wasting Neurological: Cranial nerves II-XII grossly intact Psych/Mental Status: Normal Affect Debridement Note Post-Debridement Measurements/Treatment WC - Nurse 2 - General Ulcer CM Notes Start: 04/08/20 09:01 Freq: Status: Active Protocol: Activity Type Activity Date Activity User E-Sign Co-Sign Detail Recorded Client Recorded Date Recorded By Document 04/08/20 09:45 MW [id number] 04/08/20 09:54 MW 04/08/20 09:45 Wound Center Nurse 2 #13 L Med Dorsal foot -Time 09:45 -Wound/Ulcer Outcome Converted #12 Medial Superior LLE -Time 09:45 -Correct Patient Yes -Correct Side, Site, Position Yes -Correct Procedure Yes -Procedure Performed Yes -Type of Procedure Debridement -Clinical Debridement Subcutaneous -Post Debridement Size (cm) - Length 4.0 -Post Debridement Size (cm) - Width 4.5 -Post Debridement Size (cm) - Depth 0.1 -Total Square Cm 18.00 -Wound/Ulcer Outcome Not Healed -Ulcer Cleansing Rinsed/ Irrigated with Saline -Foul Odor after Cleansing No -Bioengineered Tissue No -Bleeding Controlled with Pressure -Offloading No -Treatment Response Procedure Tolerated Well #11 Medial Inferior LLE -Time 09:45 -Correct Patient Yes -Correct Side, Site, Position Yes -Correct Procedure Yes -Procedure Performed Yes -Type of Procedure Debridement -Clinical Debridement Subcutaneous -Post Debridement Size (cm) - Length 4.5 -Post Debridement Size (cm) - Width 3.0 -Post Debridement Size (cm) - Depth 0.1 -Total Square Cm 13.50 -Wound/Ulcer Outcome Not Healed -Ulcer Cleansing Rinsed/ Irrigated with Saline -Foul Odor after Cleansing No -Bioengineered Tissue No -Bleeding Controlled with Pressure -Offloading No -Treatment Response Procedure Tolerated Well #10 Left Medial Ankle -Time 09:46 -Correct Patient Yes -Correct Side, Site, Position Yes -Correct Procedure Yes -Procedure Performed Yes -Type of Procedure Debridement -Clinical Debridement Subcutaneous -Post Debridement Size (cm) - Length 4.5 -Post Debridement Size (cm) - Width 8.0 -Post Debridement Size (cm) - Depth 0.1 -Total Square Cm 36.00 -Wound/Ulcer Outcome Not Healed -Ulcer Cleansing Rinsed/ Irrigated with Saline -Foul Odor after Cleansing No -Bioengineered Tissue No -Bleeding Controlled with Pressure -Offloading No -Treatment Response Procedure Tolerated Well Pain Scale: 0-10 Numeric Is Patient Pain Free? Yes Wound debrided: Left May ( Superior cluster ) Type of Debridement: Excisional debridement Anesthesia Used: 4% Lidocaine Solution Depth: Down to and including healthy tissue, in the subcutaneous layer Percentage of wound debrided: 100 Instrument Used: 5mm curette Tissue Removed: Slough and devitalized tissue Severity: Fat Layer Exposed Amount of bleeding with debridement: Mild Bleeding Controlled with: Pressure Patient tolerated procedure well - Additional Wound Wound debrided: Left may ( inferior ) Type of Debridement: Excisional debridement Anesthesia Used: 4% Lidocaine Solution Depth: Down to and including healthy tissue, in the subcutaneous layer Percentage of wound debrided: 100 Instrument Used: 5mm curette Tissue Removed: Slough and devitalized tissue Severity: Fat Layer Exposed Amount of bleeding with debridement: Mild Bleeding Controlled with: Pressure Patient tolerated procedure: Patient tolerated procedure well - Additional Wound Wound debrided: Left medial ankle Type of Debridement: Excisional debridement Anesthesia Used: 4% Lidocaine Solution Depth: Down to and including healthy tissue, in the subcutaneous layer Percentage of wound debrided: 100 Instrument Used: 5mm curette Tissue Removed: Slough and devitalized tissue Severity: Fat Layer Exposed Amount of bleeding with debridement: Mild Bleeding Controlled with: Pressure Patient tolerated procedure: Patient tolerated procedure well - Additional Wound Wound debrided: Left Dorsal Foot Type of Debridement: Excisional debridement Anesthesia Used: 4% Lidocaine Solution Depth: Down to and including healthy tissue, in the subcutaneous layer Percentage of wound debrided: 100 Instrument Used: 5mm curette Tissue Removed: Slough and devitalized tissue Severity: Fat Layer Exposed Amount of bleeding with debridement: Mild Bleeding Controlled with: Pressure Patient tolerated procedure: Patient tolerated procedure well Assessment/Plan Active Problems Ulcer of left lower extremity with fat layer exposed (Chronic) Chronic venous insufficiency (Chronic) Peripheral vascular occlusive disease (Chronic) Assessment: Chronic left leg ulcer. Venous insufficiency. Leg edema. Delayed ulcer healing. Plan: Debridement done as documented above, procedure was well tolerated. Some improvement noted. Continue aquacel ag with keramax over top. Continue use of compression stockings, leg elevation and exercise. Increased protein intake , protein supplements, zinc and vitamin C also recommended. His questions were answered and he was advised to call with any further questions or concerns. Follow-up in 2 weeks. This note was generated with [employer] dictation software. It may contain incorrect words, spelling, and punctuation that were not noted in checking the note before signing. [id number]: [id number] [place] subq tissue 20 sq cm/< Add On Codes: [id number] [place] subq tissue add-on
[2020-04-22 09:00] VITALS: BP 156/92; PULSE 85; RESP 16; TEMP 36.3; BMI 31.4
--- NOTE | 2020-04-22 09:28 | PCM.WC.PN ---
(1) Ulcer of left lower extremity with fat layer exposed Status: Chronic Current Visit: Yes Code(s): L97.922 - Non-pressure chronic ulcer of unspecified part of left lower leg with fat layer exposed (2) Chronic venous insufficiency Status: Chronic Current Visit: Yes (3) Delayed wound healing Status: Chronic Current Visit: No Code(s): T14.8XXD - Other injury of unspecified body region, subsequent encounter (4) Peripheral vascular occlusive disease Status: Chronic Current Visit: Yes Code(s): I73.9 - Peripheral vascular disease, unspecified Type of Wound Date of Service: 04/22/20 Chief Complaint: ulcers to the left lower leg History of Wound: This is a 54-year-old male presents to wound healing center with a long-standing history of chronic venous insufficiency, chronic venous hypertension, lower extremity edema, lower extremity pain, and chronic left lower extremity ulcer. The patient has previously undergone endovenous laser ablation of the left and right great saphenous vein, the small saphenous vein, the left accessory saphenous vein, and an incompetent left calf measurement superintendent vein located 15 cm proximal to the left medial malleolus. He is currently wearing graduated compression stockings which are documented to be 20-30 mmHg compression and these are thigh high. He reports great compliance with use. He is also had previous arterial work-up with no intervention recommended by letter, his vascular surgeon. He denies taking nutritional supplementation. He saw dermatology and had a biopsy of the ulcer site. He also was previously treated by infectious disease for various contaminations and infections. He is not antibiotics at this time nor does he have any redness or odor coming from the wound. He denies fever, chill, nausea, vomiting, loss of appetite. Progress of Wound: Stable. No new concerns. - Physical Exam Vital Signs Temp Pulse Resp BP 97.4 F L 85 16 156/92 H 04/22/20 09:00 04/22/20 09:00 04/22/20 09:00 04/22/20 09:00 General: Alert, Oriented x3, Cooperative, No apparent distress HEENT: Atraumatic, Normocephalic Oral: Moist Mucosa Neck: Supple Lungs: Normal air movement Extremities: No cyanosis Skin: Ulcer/ Wound Wound Measurements and Assessment WC - Nurse 1 - General Ulcer Measurement Start: 04/08/20 09:01 Freq: Status: Active Protocol: Activity Type Activity Date Activity User E-Sign Co-Sign Detail Recorded Client Recorded Date Recorded By Document 04/22/20 09:00 [facility] [id number] 04/22/20 09:10 [facility] 04/22/20 09:00 Wound Center Nurse 1 [Ulcer Assessment] #13 L Med Dorsal foot -Combined with other wound No -Current Size (cm) - Length 4.9 -Current Size (cm) - Width 0.5 -Current Size (cm) - Depth 0.2 -Total Square Cm 2.45 -Photo Taken No -Epithelialization None Present -Tunneling No -Undermining/Tunneling No -Circular Undermining No -Exudate Amt Small -Exudate Type Serosanguineous -Wound Margin Distinct, Outline Attached -Granulation Amt Medium (34-66%) -Granulation Quality Red -Slough/Fibrin Yes -Necrosis Amt Medium (34-66%) -Necrotic Tissue Type Adherent Slough -Texture (Ara-wound Skin Appearance) Assessed, Scarring -Moisture (Ara-wound Skin Appearance Assessed,Dry/ ) Scaly -Color (Ara-wound Skin Appearance) Assessed, Erythema -Temperature (Ara-wound Skin No Abnormality Appearance) (Pt Warm) -Tenderness on Palpation (Ara-wound No Skin Appearance) -Ulcer Cleansing Rinsed/ Irrigated with Saline -Foul Odor after Cleansing No -Anesthetic Used 4% Lidocaine Solution #12 Medial Superior LLE -Combined with other wound No -Current Size (cm) - Length 4.4 -Current Size (cm) - Width 4.5 -Current Size (cm) - Depth 0.2 -Total Square Cm 19.80 -Photo Taken No -Epithelialization Small 1-33% -Tunneling No -Undermining/Tunneling No -Circular Undermining No -Exudate Amt Small -Exudate Type Serosanguineous -Wound Margin Distinct, Outline Attached -Granulation Amt Large (67-100%) -Granulation Quality Red -Slough/Fibrin Yes -Necrosis Amt Small (1-33%) -Necrotic Tissue Type Adherent Slough -Texture (Ara-wound Skin Appearance) Assessed, Scarring -Moisture (Ara-wound Skin Appearance Assessed,Dry/ ) Scaly -Color (Ara-wound Skin Appearance) Assessed, Hemosiderin Staining -Temperature (Ara-wound Skin No Abnormality Appearance) (Pt Warm) -Tenderness on Palpation (Ara-wound No Skin Appearance) -Ulcer Cleansing Rinsed/ Irrigated with Saline -Foul Odor after Cleansing No -Anesthetic Used 4% Lidocaine Solution #11 Medial Inferior LLE -Combined with other wound No -Current Size (cm) - Length 2.8 -Current Size (cm) - Width 2.8 -Current Size (cm) - Depth 0.2 -Total Square Cm 7.84 -Photo Taken No -Epithelialization Small 1-33% -Tunneling No -Undermining/Tunneling No -Circular Undermining No -Exudate Amt Small -Exudate Type Serosanguineous -Wound Margin Distinct, Outline Attached -Granulation Amt Large (67-100%) -Granulation Quality Red -Slough/Fibrin Yes -Necrosis Amt Small (1-33%) -Necrotic Tissue Type Adherent Slough -Texture (Ara-wound Skin Appearance) Assessed, Scarring -Moisture (Ara-wound Skin Appearance Assessed,Dry/ ) Scaly -Color (Ara-wound Skin Appearance) Assessed, Hemosiderin Staining -Temperature (Ara-wound Skin No Abnormality Appearance) (Pt Warm) -Tenderness on Palpation (Ara-wound No Skin Appearance) -Ulcer Cleansing Rinsed/ Irrigated with Saline -Foul Odor after Cleansing No -Anesthetic Used 4% Lidocaine Solution #10 Left Medial Ankle -Combined with other wound No -Current Size (cm) - Length 3.5 -Current Size (cm) - Width 4.6 -Current Size (cm) - Depth 0.4 -Total Square Cm 16.10 -Photo Taken No -Epithelialization None Present -Tunneling No -Undermining/Tunneling No -Circular Undermining No -Exudate Amt Small -Exudate Type Serosanguineous -Wound Margin Distinct, Outline Attached -Granulation Amt Medium (34-66%) -Granulation Quality Red -Slough/Fibrin Yes -Necrosis Amt Medium (34-66%) -Necrotic Tissue Type Adherent Slough -Texture (Ara-wound Skin Appearance) Assessed, Scarring -Moisture (Ara-wound Skin Appearance Assessed,Dry/ ) Scaly -Color (Ara-wound Skin Appearance) Assessed -Temperature (Ara-wound Skin No Abnormality Appearance) (Pt Warm) -Tenderness on Palpation (Ara-wound No Skin Appearance) -Ulcer Cleansing Rinsed/ Irrigated with Saline -Foul Odor after Cleansing No -Anesthetic Used 4% Lidocaine Solution [Edema Assessment] -Lower Limb Edema Present Yes -Left Calf (cm) 35.8 -Left Ankle (cm) 22.8 WC - Nurse 2 - General Ulcer CM Notes Start: 04/08/20 09:01 Freq: Status: Active Protocol: Activity Type Activity Date Activity User E-Sign Co-Sign Detail Recorded Client Recorded Date Recorded By Document 04/22/20 09:17 DV [id number] 04/22/20 09:24 DV 04/22/20 09:17 Wound Center Nurse 2 [Procedure/Treatment] #13 L Med Dorsal foot -Time 09:17 -Correct Patient Yes -Correct Side, Site, Position Yes -Correct Procedure Yes -Procedure Performed Yes -Post Debridement Size (cm) - Length 3.7 -Post Debridement Size (cm) - Width 0.5 -Post Debridement Size (cm) - Depth 0.1 -Total Square Cm 1.85 -Wound/Ulcer Outcome Not Healed #12 Medial Superior LLE -Time 09:18 -Correct Patient Yes -Correct Side, Site, Position Yes -Correct Procedure Yes -Procedure Performed Yes -Type of Procedure Debridement -Clinical Debridement Subcutaneous -Post Debridement Size (cm) - Length 4.0 -Post Debridement Size (cm) - Width 5.0 -Post Debridement Size (cm) - Depth 0.1 -Total Square Cm 20.00 -Wound/Ulcer Outcome Not Healed #11 Medial Inferior LLE -Time 09:18 -Correct Patient Yes -Correct Side, Site, Position Yes -Correct Procedure Yes -Procedure Performed Yes -Type of Procedure Debridement -Clinical Debridement Subcutaneous -Post Debridement Size (cm) - Length 2.7 -Post Debridement Size (cm) - Width 3.0 -Post Debridement Size (cm) - Depth 0.1 -Total Square Cm 8.10 #10 Left Medial Ankle -Time 09:18 -Correct Patient Yes -Correct Side, Site, Position Yes -Correct Procedure Yes -Procedure Performed Yes -Type of Procedure Debridement -Clinical Debridement Subcutaneous -Post Debridement Size (cm) - Length 4.5 -Post Debridement Size (cm) - Width 2.7 -Post Debridement Size (cm) - Depth 0.2 -Total Square Cm 12.15 -Wound/Ulcer Outcome Not Healed [See Physician Procedure note for Specifics] Pain Scale: 0-10 Numeric [Pain] -Is Patient Pain Free? Yes Musculoskeletal: No Muscle Wasting Neurological: Cranial nerves II-XII grossly intact Psych/Mental Status: Normal Affect Debridement Note Post-Debridement Measurements/Treatment WC - Nurse 2 - General Ulcer CM Notes Start: 04/08/20 09:01 Freq: Status: Active Protocol: Activity Type Activity Date Activity User E-Sign Co-Sign Detail Recorded Client Recorded Date Recorded By Document 04/08/20 09:45 MW [id number] 04/08/20 09:54 MW Document 04/22/20 09:17 DV [id number] 04/22/20 09:24 DV 04/08/20 04/22/20 09:45 09:17 Wound Center Nurse 2 #13 L Med Dorsal foot -Time 09:17 -Correct Patient Yes Yes -Correct Side, Site, Position Yes Yes -Correct Procedure Yes Yes -Procedure Performed Yes Yes -Type of Procedure Debridement -Clinical Debridement Subcutaneous -Post Debridement Size (cm) - Length 4.0 3.7 -Post Debridement Size (cm) - Width 0.4 0.5 -Post Debridement Size (cm) - Depth 0.1 0.1 -Total Square Cm 1.60 1.85 -Wound/Ulcer Outcome Not Healed Not Healed -Ulcer Cleansing Rinsed/ Irrigated with Saline -Foul Odor after Cleansing No -Bioengineered Tissue No -Bleeding Controlled with Pressure -Offloading No -Treatment Response Procedure Tolerated Well #12 Medial Superior LLE -Time 09:18 -Correct Patient Yes Yes -Correct Side, Site, Position Yes Yes -Correct Procedure Yes Yes -Procedure Performed Yes Yes -Type of Procedure Debridement Debridement -Clinical Debridement Subcutaneous Subcutaneous -Post Debridement Size (cm) - Length 4.0 4.0 -Post Debridement Size (cm) - Width 4.5 5.0 -Post Debridement Size (cm) - Depth 0.1 0.1 -Total Square Cm 18.00 20.00 -Wound/Ulcer Outcome Not Healed Not Healed -Ulcer Cleansing Rinsed/ Irrigated with Saline -Foul Odor after Cleansing No -Bioengineered Tissue No -Bleeding Controlled with Pressure -Offloading No -Treatment Response Procedure Tolerated Well #11 Medial Inferior LLE -Time 09:18 -Correct Patient Yes Yes -Correct Side, Site, Position Yes Yes -Correct Procedure Yes Yes -Procedure Performed Yes Yes -Type of Procedure Debridement Debridement -Clinical Debridement Subcutaneous Subcutaneous -Post Debridement Size (cm) - Length 4.5 2.7 -Post Debridement Size (cm) - Width 3.0 3.0 -Post Debridement Size (cm) - Depth 0.1 0.1 -Total Square Cm 13.50 8.10 -Wound/Ulcer Outcome Not Healed -Ulcer Cleansing Rinsed/ Irrigated with Saline -Foul Odor after Cleansing No -Bioengineered Tissue No -Bleeding Controlled with Pressure -Offloading No -Treatment Response Procedure Tolerated Well #10 Left Medial Ankle -Time 09:46 09:18 -Correct Patient Yes Yes -Correct Side, Site, Position Yes Yes -Correct Procedure Yes Yes -Procedure Performed Yes Yes -Type of Procedure Debridement Debridement -Clinical Debridement Subcutaneous Subcutaneous -Post Debridement Size (cm) - Length 3.0 4.5 -Post Debridement Size (cm) - Width 5.0 2.7 -Post Debridement Size (cm) - Depth 0.2 0.2 -Total Square Cm 15.00 12.15 -Wound/Ulcer Outcome Not Healed Not Healed -Ulcer Cleansing Rinsed/ Irrigated with Saline -Foul Odor after Cleansing No -Bioengineered Tissue No -Bleeding Controlled with Pressure -Offloading No -Treatment Response Procedure Tolerated Well Pain Scale: 0-10 Numeric Is Patient Pain Free? Yes Yes Wound debrided: Left medial ankle Type of Debridement: Excisional debridement Anesthesia Used: 4% Lidocaine Solution Depth: Down to and including healthy tissue, in the subcutaneous layer Percentage of wound debrided: 100 Instrument Used: 5mm curette Tissue Removed: Slough and devitalized tissue Severity: Fat Layer Exposed Amount of bleeding with debridement: Mild Bleeding Controlled with: Pressure Patient tolerated procedure well - Additional Wound Wound debrided: Left dorsal foot Type of Debridement: Excisional debridement Anesthesia Used: 4% Lidocaine Solution Depth: Down to and including healthy tissue, in the subcutaneous layer Percentage of wound debrided: 100 Instrument Used: 5mm curette Tissue Removed: Slough and devitalized tissue Severity: Fat Layer Exposed Amount of bleeding with debridement: Mild Bleeding Controlled with: Pressure Patient tolerated procedure: Patient tolerated procedure well - Additional Wound Wound debrided: Left lower extremity (inferior) Type of Debridement: Excisional debridement Anesthesia Used: 4% Lidocaine Solution Depth: Down to and including healthy tissue, in the subcutaneous layer Percentage of wound debrided: 100 Instrument Used: 5mm curette Tissue Removed: Slough and devitalized tissue Severity: Fat Layer Exposed Amount of bleeding with debridement: Mild Bleeding Controlled with: Pressure Patient tolerated procedure: Patient tolerated procedure well - Additional Wound Wound debrided: Left lower extremity superior cluster Type of Debridement: Excisional debridement Anesthesia Used: 4% Lidocaine Solution Depth: Down to and including healthy tissue, in the subcutaneous layer Percentage of wound debrided: 100 Instrument Used: 5mm curette Tissue Removed: Slough and devitalized tissue Severity: Fat Layer Exposed Amount of bleeding with debridement: Mild Bleeding Controlled with: Pressure Patient tolerated procedure: Patient tolerated procedure well Assessment/Plan Active Problems Ulcer of left lower extremity with fat layer exposed (Chronic) Chronic venous insufficiency (Chronic) Peripheral vascular occlusive disease (Chronic) Assessment: Chronic left leg ulcer. Venous insufficiency. Leg edema. Delayed ulcer healing. Plan: Debridement done as documented above, procedure was well tolerated. Some improvement noted. Continue aquacel ag with keramax over top. Continue use of compression stockings, leg elevation and exercise. Increased protein intake , protein supplements, zinc and vitamin C also recommended. His questions were answered and he was advised to call with any further questions or concerns. Follow-up in 2 weeks. This note was generated with Needl dictation software. It may contain incorrect words, spelling, and punctuation that were not noted in checking the note before signing. [id number]: [id number] Lakeisha subq tissue 20 sq cm/< Add On Codes: [id number] Lakeisha subq tissue add-on - Additional square centimeters debrided, please refer to clinical note.
== END 2020-04-27 23:59 ==
LOC: WC 09:00
PROVIDERS: Referring Provider Podiatrist; Visit Provider Internal Medicine
DX: I87.332 Chronic venous hypertension (idiopathic) with ulcer and inflammation of left lower extremity (principal); L97.922 Non-pressure chronic ulcer of unspecified part of left lower leg with fat layer exposed; I87.2 Venous insufficiency (chronic) (peripheral); T14.8XXD Other injury of unspecified body region, subsequent encounter; I73.9 Peripheral vascular disease, unspecified; R60.0 Localized edema
CPT/HCPCS: 11042; 11045

== ENCOUNTER 2020-05-20 09:00 | Outpatient (RCR) | payer BC, SELFPAY ==
[2020-04-28 00:22] VITALS: BP 156/92; PULSE 85; RESP 16; TEMP 36.3
[2020-05-06 09:06] VITALS: BP 154/71; PULSE 89; RESP 18; TEMP 36.7; BMI 31.4
--- NOTE | 2020-05-06 09:57 | PCM.WC.PN ---
(1) Chronic venous insufficiency Status: Chronic Current Visit: Yes (2) Peripheral vascular occlusive disease Status: Chronic Current Visit: No Code(s): I73.9 - Peripheral vascular disease, unspecified (3) Ulcer of left lower extremity with fat layer exposed Status: Chronic Current Visit: Yes Code(s): L97.922 - Non-pressure chronic ulcer of unspecified part of left lower leg with fat layer exposed (4) Delayed wound healing Status: Chronic Current Visit: Yes Code(s): T14.8XXD - Other injury of unspecified body region, subsequent encounter Type of Wound Date of Service: 05/06/20 Chief Complaint: ulcers to the left lower leg History of Wound: This is a 54-year-old male presents to wound healing center with a long-standing history of chronic venous insufficiency, chronic venous hypertension, lower extremity edema, lower extremity pain, and chronic left lower extremity ulcer. 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 He is currently wearing graduated compression stockings which are documented to be 20-30 mmHg compression and these are thigh high. He reports great compliance with use. He is also had previous arterial work-up with no intervention recommended by letter, his vascular surgeon. He denies taking nutritional supplementation. He saw dermatology and had a biopsy of the ulcer site. He also was previously treated by infectious disease for various contaminations and infections. He is not antibiotics at this time nor does he have any redness or odor coming from the wound. He denies fever, chill, nausea, vomiting, loss of appetite. Progress of Wound: Stable. No new concerns. - Physical Exam Vital Signs Temp Pulse Resp BP 98.0 F 89 18 154/71 H 05/06/20 09:06 05/06/20 09:06 05/06/20 09:06 05/06/20 09:06 General: Alert, Oriented x3, Cooperative, No apparent distress HEENT: Atraumatic, Normocephalic Oral: Moist Mucosa Neck: Supple Lungs: Normal air movement Extremities: No cyanosis Skin: Ulcer/ Wound Wound Measurements and Assessment WC - Nurse 1 - General Ulcer Measurement Start: 05/06/20 09:06 Freq: Status: Active Protocol: Activity Type Activity Date Activity User E-Sign Co-Sign Detail Recorded Client Recorded Date Recorded By Document 05/06/20 09:06 OKSANA [id number] 05/06/20 09:19 OKSANA 05/06/20 09:06 Wound Center Nurse 1 [Ulcer Assessment] #13 L Med Dorsal foot -Combined with other wound No -Current Size (cm) - Length 0.1 -Current Size (cm) - Width 0.1 -Current Size (cm) - Depth 0.1 -Total Square Cm 0.01 -Texture (Ara-wound Skin Appearance) Assessed, Scarring -Moisture (Ara-wound Skin Appearance Assessed,Dry/ ) Scaly -Color (Ara-wound Skin Appearance) Assessed, Hemosiderin Staining -Temperature (Ara-wound Skin No Abnormality Appearance) (Pt Warm) -Tenderness on Palpation (Ara-wound No Skin Appearance) -Ulcer Cleansing Soap and water -Foul Odor after Cleansing No #12 Medial Superior LLE -Combined with other wound No -Current Size (cm) - Length 3.0 -Current Size (cm) - Width 4.0 -Current Size (cm) - Depth 0.1 -Total Square Cm 12.00 -Granulation Quality [place],Red -Texture (Ara-wound Skin Appearance) Assessed, Scarring -Moisture (Ara-wound Skin Appearance Assessed,Dry/ ) Scaly -Color (Ara-wound Skin Appearance) Assessed, Hemosiderin Staining -Temperature (Ara-wound Skin No Abnormality Appearance) (Pt Warm) -Tenderness on Palpation (Ara-wound No Skin Appearance) -Ulcer Cleansing Soap and water -Foul Odor after Cleansing No -Anesthetic Used 4% Lidocaine Solution #11 Medial Inferior LLE -Combined with other wound No -Current Size (cm) - Length 3.0 -Current Size (cm) - Width 2.5 -Current Size (cm) - Depth 0.2 -Total Square Cm 7.50 -Granulation Quality Red -Texture (Ara-wound Skin Appearance) Assessed, Scarring -Moisture (Ara-wound Skin Appearance Assessed,Dry/ ) Scaly -Color (Ara-wound Skin Appearance) Assessed, Hemosiderin Staining -Temperature (Ara-wound Skin No Abnormality Appearance) (Pt Warm) -Tenderness on Palpation (Ara-wound No Skin Appearance) -Ulcer Cleansing Soap and water -Foul Odor after Cleansing No -Anesthetic Used 4% Lidocaine Solution #10 Left Medial Ankle -Combined with other wound No -Current Size (cm) - Length 3.7 -Current Size (cm) - Width 3.0 -Current Size (cm) - Depth 0.3 -Total Square Cm 11.10 -Photo Taken No -Granulation Quality [place],Red -Texture (Ara-wound Skin Appearance) Assessed, Scarring -Moisture (Ara-wound Skin Appearance Assessed,Dry/ ) Scaly -Color (Ara-wound Skin Appearance) Assessed, Hemosiderin Staining -Temperature (Ara-wound Skin No Abnormality Appearance) (Pt Warm) -Tenderness on Palpation (Ara-wound No Skin Appearance) -Ulcer Cleansing Soap and water -Foul Odor after Cleansing No -Anesthetic Used 4% Lidocaine Solution WC - Nurse 2 - General Ulcer CM Notes Start: 05/06/20 09:06 Freq: Status: Active Protocol: Activity Type Activity Date Activity User E-Sign Co-Sign Detail Recorded Client Recorded Date Recorded By Document 05/06/20 09:31 MW [id number] 05/06/20 09:39 MW 05/06/20 09:31 Wound Center Nurse 2 [Procedure/Treatment] #13 L Med Dorsal foot -Time 09:31 -Correct Patient Yes -Correct Side, Site, Position Yes -Correct Procedure Yes -Procedure Performed No -Post Debridement Size (cm) - Length 0 -Post Debridement Size (cm) - Width 0 -Post Debridement Size (cm) - Depth 0 -Total Square Cm 0 -Wound/Ulcer Outcome Healed- Epithelialized -Bleeding Controlled with NA -Treatment Response Procedure Tolerated Well #12 Medial Superior LLE -Time 09:32 -Correct Patient Yes -Correct Side, Site, Position Yes -Correct Procedure Yes -Procedure Performed Yes -Type of Procedure Debridement -Clinical Debridement Subcutaneous -Post Debridement Size (cm) - Length 3.0 -Post Debridement Size (cm) - Width 5.0 -Post Debridement Size (cm) - Depth 0.1 -Total Square Cm 15.00 -Wound/Ulcer Outcome Not Healed -Ulcer Cleansing Rinsed/ Irrigated with Saline -Foul Odor after Cleansing No -Bioengineered Tissue No -Bleeding Controlled with Pressure -Offloading No -Treatment Response Procedure Tolerated Well #11 Medial Inferior LLE -Time 09:32 -Correct Patient Yes -Correct Side, Site, Position Yes -Correct Procedure Yes -Procedure Performed Yes -Type of Procedure Debridement -Clinical Debridement Subcutaneous -Post Debridement Size (cm) - Length 3.0 -Post Debridement Size (cm) - Width 3.0 -Post Debridement Size (cm) - Depth 0.2 -Total Square Cm 9.00 -Wound/Ulcer Outcome Not Healed -Ulcer Cleansing Rinsed/ Irrigated with Saline -Foul Odor after Cleansing No -Bioengineered Tissue No -Bleeding Controlled with Pressure -Offloading No -Treatment Response Procedure Tolerated Well #10 Left Medial Ankle -Time 09:32 -Correct Patient Yes -Correct Side, Site, Position Yes -Correct Procedure Yes -Procedure Performed Yes -Type of Procedure Debridement -Clinical Debridement Subcutaneous -Post Debridement Size (cm) - Length 4.0 -Post Debridement Size (cm) - Width 2.4 -Post Debridement Size (cm) - Depth 0.2 -Total Square Cm 9.60 -Wound/Ulcer Outcome Not Healed -Ulcer Cleansing Rinsed/ Irrigated with Saline -Foul Odor after Cleansing No -Bioengineered Tissue No -Bleeding Controlled with Pressure -Offloading No -Treatment Response Procedure Tolerated Well [See Physician Procedure note for Specifics] Pain Scale: 0-10 Numeric [Pain] -Is Patient Pain Free? Yes Musculoskeletal: No Muscle Wasting Neurological: Cranial nerves II-XII grossly intact Psych/Mental Status: Normal Affect Debridement Note Post-Debridement Measurements/Treatment WC - Nurse 2 - General Ulcer CM Notes Start: 05/06/20 09:06 Freq: Status: Active Protocol: Activity Type Activity Date Activity User E-Sign Co-Sign Detail Recorded Client Recorded Date Recorded By Document 05/06/20 09:31 MW [id number] 05/06/20 09:39 MW 05/06/20 09:31 Wound Center Nurse 2 #13 L Med Dorsal foot -Time 09:31 -Correct Patient Yes -Correct Side, Site, Position Yes -Correct Procedure Yes -Procedure Performed No -Post Debridement Size (cm) - Length 0 -Post Debridement Size (cm) - Width 0 -Post Debridement Size (cm) - Depth 0 -Total Square Cm 0 -Wound/Ulcer Outcome Healed- Epithelialized -Bleeding Controlled with NA -Treatment Response Procedure Tolerated Well #12 Medial Superior LLE -Time 09:32 -Correct Patient Yes -Correct Side, Site, Position Yes -Correct Procedure Yes -Procedure Performed Yes -Type of Procedure Debridement -Clinical Debridement Subcutaneous -Post Debridement Size (cm) - Length 3.0 -Post Debridement Size (cm) - Width 5.0 -Post Debridement Size (cm) - Depth 0.1 -Total Square Cm 15.00 -Wound/Ulcer Outcome Not Healed -Ulcer Cleansing Rinsed/ Irrigated with Saline -Foul Odor after Cleansing No -Bioengineered Tissue No -Bleeding Controlled with Pressure -Offloading No -Treatment Response Procedure Tolerated Well #11 Medial Inferior LLE -Time 09:32 -Correct Patient Yes -Correct Side, Site, Position Yes -Correct Procedure Yes -Procedure Performed Yes -Type of Procedure Debridement -Clinical Debridement Subcutaneous -Post Debridement Size (cm) - Length 3.0 -Post Debridement Size (cm) - Width 3.0 -Post Debridement Size (cm) - Depth 0.2 -Total Square Cm 9.00 -Wound/Ulcer Outcome Not Healed -Ulcer Cleansing Rinsed/ Irrigated with Saline -Foul Odor after Cleansing No -Bioengineered Tissue No -Bleeding Controlled with Pressure -Offloading No -Treatment Response Procedure Tolerated Well #10 Left Medial Ankle -Time 09:32 -Correct Patient Yes -Correct Side, Site, Position Yes -Correct Procedure Yes -Procedure Performed Yes -Type of Procedure Debridement -Clinical Debridement Subcutaneous -Post Debridement Size (cm) - Length 4.0 -Post Debridement Size (cm) - Width 2.4 -Post Debridement Size (cm) - Depth 0.2 -Total Square Cm 9.60 -Wound/Ulcer Outcome Not Healed -Ulcer Cleansing Rinsed/ Irrigated with Saline -Foul Odor after Cleansing No -Bioengineered Tissue No -Bleeding Controlled with Pressure -Offloading No -Treatment Response Procedure Tolerated Well Pain Scale: 0-10 Numeric Is Patient Pain Free? Yes Wound debrided: Left medial ankle Type of Debridement: Excisional debridement Anesthesia Used: 4% Lidocaine Solution Depth: Down to and including healthy tissue, in the subcutaneous layer Percentage of wound debrided: 100 Instrument Used: 5mm curette Tissue Removed: Slough and devitalized tissue Severity: Fat Layer Exposed Amount of bleeding with debridement: Mild Bleeding Controlled with: Pressure Patient tolerated procedure well - Additional Wound Wound debrided: Left lower extremity inferior Type of Debridement: Excisional debridement Anesthesia Used: 4% Lidocaine Solution Depth: Down to and including healthy tissue, in the subcutaneous layer Percentage of wound debrided: 100 Instrument Used: 5mm curette Tissue Removed: Slough and devitalized tissue Severity: Fat Layer Exposed Amount of bleeding with debridement: Mild Bleeding Controlled with: Pressure Patient tolerated procedure: Patient tolerated procedure well - Additional Wound Wound debrided: Lower extremity superior cluster Type of Debridement: Excisional debridement Anesthesia Used: 4% Lidocaine Solution Depth: Down to and including healthy tissue, in the subcutaneous layer Percentage of wound debrided: 100 Instrument Used: 5mm curette Tissue Removed: Slough and devitalized tissue Severity: Fat Layer Exposed Amount of bleeding with debridement: Mild Bleeding Controlled with: Pressure Patient tolerated procedure: Patient tolerated procedure well Assessment/Plan Active Problems Ulcer of left lower extremity with fat layer exposed (Chronic) Delayed wound healing (Chronic) Chronic venous insufficiency (Chronic) Assessment: Chronic left leg ulcer. Venous insufficiency. Leg edema. Delayed ulcer healing. Plan: Debridement done as documented above, procedure was well tolerated. Some improvement noted. Dorsal wound is healed. Continue aquacel ag with keramax over top. Continue use of compression stockings, leg elevation and exercise. Increased protein intake , protein supplements, zinc and vitamin C also recommended. His questions were answered and he was advised to call with any further questions or concerns. Follow-up in 2 weeks. This note was generated with [email or web address] dictation software. It may contain incorrect words, spelling, and punctuation that were not noted in checking the note before signing. [id number]: [id number] Lakeisha subq tissue 20 sq cm/< Add On Codes: [id number] Lakeisha subq tissue add-on - Additional square centimeter debrided, please refer to clinical note.
[2020-05-20 09:02] VITALS: BP 156/85; PULSE 82; RESP 16; TEMP 36.2; BMI 31.4
--- NOTE | 2020-05-20 09:53 | PCM.WC.PN ---
(1) Chronic venous insufficiency Status: Chronic Current Visit: Yes (2) Peripheral vascular occlusive disease Status: Chronic Current Visit: No Code(s): I73.9 - Peripheral vascular disease, unspecified (3) Ulcer of left lower extremity with fat layer exposed Status: Chronic Current Visit: Yes Code(s): L97.922 - Non-pressure chronic ulcer of unspecified part of left lower leg with fat layer exposed (4) Delayed wound healing Status: Chronic Current Visit: Yes Code(s): T14.8XXD - Other injury of unspecified body region, subsequent encounter Type of Wound Date of Service: 05/20/20 Chief Complaint: ulcers to the left lower leg History of Wound: This is a 54-year-old male presents to wound healing center with a long-standing history of chronic venous insufficiency, chronic venous hypertension, lower extremity edema, lower extremity pain, and chronic left lower extremity ulcer. The patient has previously undergone endovenous laser ablation of the left and right great saphenous vein, the small saphenous vein, the left accessory saphenous vein, and an incompetent left calf covering and lining supervisor vein located 15 cm proximal to the left medial malleolus. He is currently wearing graduated compression stockings which are documented to be 20-30 mmHg compression and these are thigh high. He reports great compliance with use. He is also had previous arterial work-up with no intervention recommended by letter, his vascular surgeon. He denies taking nutritional supplementation. He saw dermatology and had a biopsy of the ulcer site. He also was previously treated by infectious disease for various contaminations and infections. He is not antibiotics at this time nor does he have any redness or odor coming from the wound. He denies fever, chill, nausea, vomiting, loss of appetite. Progress of Wound: Stable. No new concerns. - Physical Exam Vital Signs Temp Pulse Resp BP 97.2 F L 82 16 156/85 H 05/20/20 09:02 05/20/20 09:02 05/20/20 09:02 05/20/20 09:02 General: Alert, Oriented x3, Cooperative, No apparent distress HEENT: Atraumatic, Normocephalic Oral: Moist Mucosa Neck: Supple Lungs: Normal air movement Extremities: No cyanosis, Edema Wound Measurements and Assessment WC - Nurse 1 - General Ulcer Measurement Start: 05/06/20 09:06 Freq: Status: Active Protocol: Activity Type Activity Date Activity User E-Sign Co-Sign Detail Recorded Client Recorded Date Recorded By Document 05/20/20 09:02 CARLOS [id number] 05/20/20 09:06 CARLOS 05/20/20 09:02 Wound Center Nurse 1 [Ulcer Assessment] #12 Medial Superior LLE -Combined with other wound No -Current Size (cm) - Length 4 -Current Size (cm) - Width 5 -Current Size (cm) - Depth 0.1 -Total Square Cm 20 -Photo Taken No -Epithelialization Medium 34-66% -Tunneling No -Undermining/Tunneling No -Circular Undermining No -Exudate Amt Medium -Exudate Type Serosanguineous -Wound Margin Flat & Intact -Granulation Amt Large (67-100%) -Granulation Quality Red -Slough/Fibrin Yes -Necrosis Amt Small (1-33%) -Necrotic Tissue Type Adherent Slough -Structure Exposed N/A -Texture (Ara-wound Skin Appearance) Assessed, Localized Edema -Moisture (Ara-wound Skin Appearance Assessed,Dry/ ) Scaly -Color (Ara-wound Skin Appearance) Assessed, Hemosiderin Staining -Temperature (Ara-wound Skin No Abnormality Appearance) (Pt Warm) -Tenderness on Palpation (Ara-wound No Skin Appearance) -Ulcer Cleansing Wound Cleanser -Foul Odor after Cleansing No -Anesthetic Used 4% Lidocaine Solution #11 Medial Inferior LLE -Combined with other wound No -Current Size (cm) - Length 4.3 -Current Size (cm) - Width 4 -Current Size (cm) - Depth 0.1 -Total Square Cm 17.2 -Photo Taken No -Epithelialization Medium 34-66% -Tunneling No -Undermining/Tunneling No -Circular Undermining No -Exudate Amt Medium -Exudate Type Serosanguineous -Wound Margin Flat & Intact -Granulation Amt Medium (34-66%) -Granulation Quality Red -Slough/Fibrin Yes -Necrosis Amt Medium (34-66%) -Necrotic Tissue Type Adherent Slough -Structure Exposed N/A -Texture (Ara-wound Skin Appearance) Assessed, Localized Edema ,Scarring -Moisture (Ara-wound Skin Appearance Assessed,Dry/ ) Scaly -Color (Ara-wound Skin Appearance) Assessed, Hemosiderin Staining -Temperature (Ara-wound Skin No Abnormality Appearance) (Pt Warm) -Tenderness on Palpation (Ara-wound No Skin Appearance) -Ulcer Cleansing Wound Cleanser -Foul Odor after Cleansing No -Anesthetic Used 4% Lidocaine Solution #10 Left Medial Ankle -Combined with other wound No -Current Size (cm) - Length 4.5 -Current Size (cm) - Width 3.4 -Current Size (cm) - Depth 0.3 -Total Square Cm 15.30 -Photo Taken No -Epithelialization Medium 34-66% -Tunneling No -Undermining/Tunneling No -Circular Undermining No -Exudate Amt Medium -Exudate Type Serosanguineous -Wound Margin Flat & Intact -Granulation Amt Medium (34-66%) -Granulation Quality Red -Slough/Fibrin Yes -Necrosis Amt Medium (34-66%) -Necrotic Tissue Type Adherent Slough -Structure Exposed N/A -Texture (Ara-wound Skin Appearance) Assessed, Localized Edema -Moisture (Ara-wound Skin Appearance Assessed,Dry/ ) Scaly -Color (Ara-wound Skin Appearance) Assessed, Hemosiderin Staining -Temperature (Ara-wound Skin No Abnormality Appearance) (Pt Warm) -Tenderness on Palpation (Ara-wound No Skin Appearance) -Ulcer Cleansing Wound Cleanser -Foul Odor after Cleansing No -Anesthetic Used 4% Lidocaine Solution [Edema Assessment] -Lower Limb Edema Present Yes -Left Calf (cm) 36.5 -Left Ankle (cm) 24.0 WC - Nurse 2 - General Ulcer CM Notes Start: 05/06/20 09:06 Freq: Status: Active Protocol: Activity Type Activity Date Activity User E-Sign Co-Sign Detail Recorded Client Recorded Date Recorded By Document 05/20/20 09:48 PL [id number] 05/20/20 09:50 PL 05/20/20 09:48 Wound Center Nurse 2 [Procedure/Treatment] #12 Medial Superior LLE -Time 09:27 -Correct Patient Yes -Correct Side, Site, Position Yes -Correct Procedure Yes -Procedure Performed Yes -Type of Procedure Debridement -Clinical Debridement Subcutaneous -Post Debridement Size (cm) - Length 3 -Post Debridement Size (cm) - Width 5.6 -Post Debridement Size (cm) - Depth 0.1 -Total Square (cm) 16.8 -Wound/Ulcer Outcome Not Healed -Ulcer Cleansing Rinsed/ Irrigated with Saline -Foul Odor after Cleansing No -Bleeding Controlled with Pressure -Treatment Response Procedure Tolerated Well #11 Medial Inferior LLE -Time 09:27 -Correct Patient Yes -Correct Side, Site, Position Yes -Correct Procedure Yes -Procedure Performed Yes -Type of Procedure Debridement -Clinical Debridement Subcutaneous -Post Debridement Size (cm) - Length 2.5 -Post Debridement Size (cm) - Width 3.7 -Post Debridement Size (cm) - Depth 0.1 -Total Square (cm) 9.25 -Wound/Ulcer Outcome Not Healed -Ulcer Cleansing Rinsed/ Irrigated with Saline -Foul Odor after Cleansing No -Bleeding Controlled with Pressure -Treatment Response Procedure Tolerated Well #10 Left Medial Ankle -Time 09:27 -Correct Patient Yes -Correct Side, Site, Position Yes -Correct Procedure Yes -Procedure Performed Yes -Type of Procedure Debridement -Clinical Debridement Subcutaneous -Post Debridement Size (cm) - Length 4 -Post Debridement Size (cm) - Width 2.5 -Post Debridement Size (cm) - Depth 0.2 -Total Square (cm) 10.0 -Wound/Ulcer Outcome Not Healed -Ulcer Cleansing Rinsed/ Irrigated with Saline -Foul Odor after Cleansing No -Bleeding Controlled with Pressure -Treatment Response Procedure Tolerated Well [See Physician Procedure note for Specifics] Pain Scale: 0-10 Numeric [Pain] -Is Patient Pain Free? Yes Musculoskeletal: No Muscle Wasting Neurological: Cranial nerves II-XII grossly intact Psych/Mental Status: Normal Affect Debridement Note Post-Debridement Measurements/Treatment WC - Nurse 2 - General Ulcer CM Notes Start: 05/06/20 09:06 Freq: Status: Active Protocol: Activity Type Activity Date Activity User E-Sign Co-Sign Detail Recorded Client Recorded Date Recorded By Document 05/06/20 09:31 MW [id number] 05/06/20 09:39 MW Document 05/20/20 09:48 PL [id number] 05/20/20 09:50 PL 05/06/20 05/20/20 09:31 09:48 Wound Center Nurse 2 #13 L Med Dorsal foot -Time 09:31 -Correct Patient Yes -Correct Side, Site, Position Yes -Correct Procedure Yes -Procedure Performed No -Post Debridement Size (cm) - Length 0 -Post Debridement Size (cm) - Width 0 -Post Debridement Size (cm) - Depth 0 -Total Square (cm) 0 -Wound/Ulcer Outcome Healed- Epithelialized -Bleeding Controlled with NA -Treatment Response Procedure Tolerated Well #12 Medial Superior LLE -Time : 09:27 -Correct Patient Yes Yes -Correct Side, Site, Position Yes Yes -Correct Procedure Yes Yes -Procedure Performed Yes Yes -Type of Procedure Debridement Debridement -Clinical Debridement Subcutaneous Subcutaneous -Post Debridement Size (cm) - Length 3.0 3 -Post Debridement Size (cm) - Width 5.0 5.6 -Post Debridement Size (cm) - Depth 0.1 0.1 -Total Square (cm) 15.00 16.8 -Wound/Ulcer Outcome Not Healed Not Healed -Ulcer Cleansing Rinsed/ Rinsed/ Irrigated with Irrigated with Saline Saline -Foul Odor after Cleansing No No -Bioengineered Tissue No -Bleeding Controlled with Pressure Pressure -Offloading No -Treatment Response Procedure Procedure Tolerated Well Tolerated Well #11 Medial Inferior LLE -Time : 09:27 -Correct Patient Yes Yes -Correct Side, Site, Position Yes Yes -Correct Procedure Yes Yes -Procedure Performed Yes Yes -Type of Procedure Debridement Debridement -Clinical Debridement Subcutaneous Subcutaneous -Post Debridement Size (cm) - Length 3.0 2.5 -Post Debridement Size (cm) - Width 3.0 3.7 -Post Debridement Size (cm) - Depth 0.2 0.1 -Total Square (cm) 9.00 9.25 -Wound/Ulcer Outcome Not Healed Not Healed -Ulcer Cleansing Rinsed/ Rinsed/ Irrigated with Irrigated with Saline Saline -Foul Odor after Cleansing No No -Bioengineered Tissue No -Bleeding Controlled with Pressure Pressure -Offloading No -Treatment Response Procedure Procedure Tolerated Well Tolerated Well #10 Left Medial Ankle -Time : 09:27 -Correct Patient Yes Yes -Correct Side, Site, Position Yes Yes -Correct Procedure Yes Yes -Procedure Performed Yes Yes -Type of Procedure Debridement Debridement -Clinical Debridement Subcutaneous Subcutaneous -Post Debridement Size (cm) - Length 4.0 4 -Post Debridement Size (cm) - Width 2.4 2.5 -Post Debridement Size (cm) - Depth 0.2 0.2 -Total Square (cm) 9.60 10.0 -Wound/Ulcer Outcome Not Healed Not Healed -Ulcer Cleansing Rinsed/ Rinsed/ Irrigated with Irrigated with Saline Saline -Foul Odor after Cleansing No No -Bioengineered Tissue No -Bleeding Controlled with Pressure Pressure -Offloading No -Treatment Response Procedure Procedure Tolerated Well Tolerated Well Pain Scale: 0-10 Numeric Is Patient Pain Free? Yes Yes Wound debrided: Left medial ankle Type of Debridement: Excisional debridement Anesthesia Used: 4% Lidocaine Solution Depth: Down to and including healthy tissue, in the subcutaneous layer Percentage of wound debrided: 100 Instrument Used: 5mm curette Tissue Removed: Slough and devitalized tissue Severity: Fat Layer Exposed Bleeding Controlled with: Pressure Patient tolerated procedure well - Additional Wound Wound debrided: Left lower extremity (inferior) Type of Debridement: Excisional debridement Anesthesia Used: 4% Lidocaine Solution Depth: Down to and including healthy tissue, in the subcutaneous layer Percentage of wound debrided: 100 Instrument Used: 5mm curette Tissue Removed: Slough and devitalized tissue Severity: Fat Layer Exposed Amount of bleeding with debridement: Mild Bleeding Controlled with: Pressure Patient tolerated procedure: Patient tolerated procedure well - Additional Wound Wound debrided: Left lower extremity superior cluster Type of Debridement: Excisional debridement Anesthesia Used: 4% Lidocaine Solution Depth: Down to and including healthy tissue, in the subcutaneous layer Percentage of wound debrided: 100 Instrument Used: 5mm curette Tissue Removed: Slough and devitalized tissue Severity: Fat Layer Exposed Amount of bleeding with debridement: Mild Bleeding Controlled with: Pressure Patient tolerated procedure: Patient tolerated procedure well Assessment/Plan Active Problems Ulcer of left lower extremity with fat layer exposed (Chronic) Delayed wound healing (Chronic) Chronic venous insufficiency (Chronic) Assessment: Chronic left leg ulcer. Venous insufficiency. Leg edema. Delayed ulcer healing. Plan: Debridement done as documented above, procedure was well tolerated. No significant change. Dorsal wound is healed. Continue aquacel ag with keramax over top. Continue use of compression stockings, leg elevation and exercise. Increased protein intake , protein supplements, zinc and vitamin C also recommended. His questions were answered and he was advised to call with any further questions or concerns. Follow-up in 2 weeks per patient preference. This note was generated with [employer] dictation software. It may contain incorrect words, spelling, and punctuation that were not noted in checking the note before signing. [id number]: [id number] Lakeisha subq tissue 20 sq cm/< Add On Codes: [id number] Lakeisha subq tissue add-on - Additional square centimeter debrided, please refer to clinical note.
== END 2020-05-28 23:59 ==
LOC: WC 09:00
PROVIDERS: Referring Provider Podiatrist; Visit Provider Internal Medicine
DX: I87.332 Chronic venous hypertension (idiopathic) with ulcer and inflammation of left lower extremity (principal); I87.2 Venous insufficiency (chronic) (peripheral); L97.822 Non-pressure chronic ulcer of other part of left lower leg with fat layer exposed; L97.322 Non-pressure chronic ulcer of left ankle with fat layer exposed; R60.0 Localized edema; M79.606 Pain in leg, unspecified
CPT/HCPCS: 11042; 11045

== ENCOUNTER 2020-06-17 09:00 | Outpatient (RCR) | payer BC, SELFPAY ==
[2020-06-03 09:13] VITALS: BP 151/95; PULSE 84; RESP 18; TEMP 36; BMI 31.4
--- NOTE | 2020-06-03 10:11 | PCM.WC.PN ---
(1) Ulcer of left lower extremity with fat layer exposed Status: Chronic Current Visit: Yes Code(s): L97.922 - Non-pressure chronic ulcer of unspecified part of left lower leg with fat layer exposed (2) Varicose veins with ulcer and inflammation Status: Chronic Current Visit: Yes Code(s): I83.209 - Varicose veins of unspecified lower extremity with both ulcer of unspecified site and inflammation; L97.909 - Non-pressure chronic ulcer of unspecified part of unspecified lower leg with unspecified severity (3) Chronic venous insufficiency Status: Chronic Current Visit: Yes Code(s): I87.2 - Venous insufficiency (chronic) (peripheral) (4) Delayed wound healing Status: Chronic Current Visit: Yes Code(s): T14.8XXD - Other injury of unspecified body region, subsequent encounter Type of Wound Date of Service: 06/03/20 Chief Complaint: ulcers to the left lower leg History of Wound: This is a 54-year-old male presents to wound healing center with a long-standing history of chronic venous insufficiency, chronic venous hypertension, lower extremity edema, lower extremity pain, and chronic left lower extremity ulcer. 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 He is currently wearing graduated compression stockings which are documented to be 20-30 mmHg compression and these are thigh high. He reports great compliance with use. He is also had previous arterial work-up with no intervention recommended by letter, his vascular surgeon. He denies taking nutritional supplementation. He saw dermatology and had a biopsy of the ulcer site. He also was previously treated by infectious disease for various contaminations and infections. He is not antibiotics at this time nor does he have any redness or odor coming from the wound. He denies fever, chill, nausea, vomiting, loss of appetite. Progress of Wound: He reports pain in his ulcers. No increased drainage. Denies chills or fever. - Physical Exam Vital Signs Temp Pulse Resp BP 96.8 F L 84 18 151/95 H 06/03/20 09:13 06/03/20 09:13 06/03/20 09:13 08/06/20 09:13 General: Alert, Oriented x3, Cooperative, No apparent distress HEENT: Atraumatic, Normocephalic Oral: Moist Mucosa Neck: Supple Lungs: Normal air movement Abdomen: Non Tender Extremities: No cyanosis, Edema Skin: Ulcer/ Wound Wound Measurements and Assessment WC - Nurse 1 - General Ulcer Measurement Start: 06/03/20 09:13 Freq: Status: Active Protocol: Activity Type Activity Date Activity User E-Sign Co-Sign Detail Recorded Client Recorded Date Recorded By Document 06/03/20 09:13 RB [id number] 06/03/20 09:21 RB 06/03/20 09:13 Wound Center Nurse 1 [Ulcer Assessment] #12 Medial Superior LLE -Current Size (cm) - Length 4 -Current Size (cm) - Width 5.6 -Current Size (cm) - Depth 0.3 -Total Square Cm 22.4 -Photo Taken No -Exudate Amt Small -Exudate Type Serosanguineous -Wound Margin Distinct, Outline Attached -Granulation Amt Large (67-100%) -Granulation Quality Red -Necrosis Amt Small (1-33%) -Necrotic Tissue Type Adherent Slough -Structure Exposed N/A -Texture (Ara-wound Skin Appearance) Scarring -Moisture (Ara-wound Skin Appearance Dry/Scaly ) -Color (Ara-wound Skin Appearance) Hemosiderin Staining -Temperature (Ara-wound Skin No Abnormality Appearance) (Pt Warm) -Tenderness on Palpation (Ara-wound No Skin Appearance) -Ulcer Cleansing Wound Cleanser -Foul Odor after Cleansing No -Anesthetic Used 4% Lidocaine Solution #11 Medial Inferior LLE -Current Size (cm) - Length 3.5 -Current Size (cm) - Width 5 -Current Size (cm) - Depth 0.2 -Total Square Cm 17.5 -Photo Taken No -Exudate Amt Small -Exudate Type Serosanguineous -Wound Margin Distinct, Outline Attached -Granulation Amt Medium (34-66%) -Granulation Quality Red -Necrosis Amt Medium (34-66%) -Necrotic Tissue Type Adherent Slough -Structure Exposed N/A -Texture (Ara-wound Skin Appearance) Scarring -Moisture (Ara-wound Skin Appearance Dry/Scaly ) -Color (Ara-wound Skin Appearance) Hemosiderin Staining -Temperature (Ara-wound Skin No Abnormality Appearance) (Pt Warm) -Tenderness on Palpation (Ara-wound No Skin Appearance) -Ulcer Cleansing Wound Cleanser -Foul Odor after Cleansing No -Anesthetic Used 4% Lidocaine Solution #10 Left Medial Ankle -Current Size (cm) - Length 4.3 -Current Size (cm) - Width 4 -Current Size (cm) - Depth 0.3 -Total Square Cm 17.2 -Photo Taken No -Exudate Amt Small -Exudate Type Serosanguineous -Wound Margin Distinct, Outline Attached -Granulation Amt Medium (34-66%) -Granulation Quality Red -Necrosis Amt Medium (34-66%) -Necrotic Tissue Type Adherent Slough -Structure Exposed N/A -Texture (Ara-wound Skin Appearance) Scarring -Moisture (Ara-wound Skin Appearance Maceration ) -Color (Ara-wound Skin Appearance) Hemosiderin Staining -Temperature (Ara-wound Skin No Abnormality Appearance) (Pt Warm) -Tenderness on Palpation (Ara-wound No Skin Appearance) -Ulcer Cleansing Wound Cleanser -Foul Odor after Cleansing No -Anesthetic Used 4% Lidocaine Solution [Edema Assessment] -Left Calf (cm) 36 -Left Ankle (cm) 24 WC - Nurse 2 - General Ulcer CM Notes Start: 06/03/20 09:13 Freq: Status: Active Protocol: Activity Type Activity Date Activity User E-Sign Co-Sign Detail Recorded Client Recorded Date Recorded By Document 06/03/20 09:38 MW [id number] 06/03/20 09:45 MW 06/03/20 09:38 Wound Center Nurse 2 [Procedure/Treatment] #12 Medial Superior LLE -Time 09:38 -Correct Patient Yes -Correct Side, Site, Position Yes -Correct Procedure Yes -Procedure Performed Yes -Type of Procedure Debridement -Clinical Debridement Subcutaneous -Post Debridement Size (cm) - Length 4.5 -Post Debridement Size (cm) - Width 5.3 -Post Debridement Size (cm) - Depth 0.1 -Total Square (cm) 23.85 -Wound/Ulcer Outcome Not Healed -Ulcer Cleansing Rinsed/ Irrigated with Saline -Foul Odor after Cleansing No -Bioengineered Tissue No -Bleeding Controlled with Pressure -Offloading No -Treatment Response Procedure Tolerated Well #11 Medial Inferior LLE -Time 09:39 -Correct Patient Yes -Correct Side, Site, Position Yes -Correct Procedure Yes -Procedure Performed Yes -Type of Procedure Debridement -Clinical Debridement Subcutaneous -Post Debridement Size (cm) - Length 2.4 -Post Debridement Size (cm) - Width 5.0 -Post Debridement Size (cm) - Depth 0.2 -Total Square (cm) 12.00 -Wound/Ulcer Outcome Not Healed -Ulcer Cleansing Rinsed/ Irrigated with Saline -Foul Odor after Cleansing No -Bioengineered Tissue No -Bleeding Controlled with Pressure -Offloading No -Treatment Response Procedure Tolerated Well #10 Left Medial Ankle -Time 09:39 -Correct Patient Yes -Correct Side, Site, Position Yes -Correct Procedure Yes -Procedure Performed Yes -Type of Procedure Debridement -Clinical Debridement Subcutaneous -Post Debridement Size (cm) - Length 4.3 -Post Debridement Size (cm) - Width 2.4 -Post Debridement Size (cm) - Depth 0.2 -Total Square (cm) 10.32 -Wound/Ulcer Outcome Not Healed -Ulcer Cleansing Rinsed/ Irrigated with Saline -Foul Odor after Cleansing No -Bioengineered Tissue No -Bleeding Controlled with Pressure -Offloading No -Treatment Response Procedure Tolerated Well [See Physician Procedure note for Specifics] Pain Scale: 0-10 Numeric [Pain] -Is Patient Pain Free? Yes Musculoskeletal: No Muscle Wasting Neurological: Cranial nerves II-XII grossly intact Psych/Mental Status: Normal Affect Debridement Note Post-Debridement Measurements/Treatment WC - Nurse 2 - General Ulcer CM Notes Start: 06/03/20 09:13 Freq: Status: Active Protocol: Activity Type Activity Date Activity User E-Sign Co-Sign Detail Recorded Client Recorded Date Recorded By Document 06/03/20 09:38 MW [id number] 06/03/20 09:45 MW 06/03/20 09:38 Wound Center Nurse 2 #12 Medial Superior LLE -Time 09:38 -Correct Patient Yes -Correct Side, Site, Position Yes -Correct Procedure Yes -Procedure Performed Yes -Type of Procedure Debridement -Clinical Debridement Subcutaneous -Post Debridement Size (cm) - Length 4.5 -Post Debridement Size (cm) - Width 5.3 -Post Debridement Size (cm) - Depth 0.1 -Total Square (cm) 23.85 -Wound/Ulcer Outcome Not Healed -Ulcer Cleansing Rinsed/ Irrigated with Saline -Foul Odor after Cleansing No -Bioengineered Tissue No -Bleeding Controlled with Pressure -Offloading No -Treatment Response Procedure Tolerated Well #11 Medial Inferior LLE -Time 09:39 -Correct Patient Yes -Correct Side, Site, Position Yes -Correct Procedure Yes -Procedure Performed Yes -Type of Procedure Debridement -Clinical Debridement Subcutaneous -Post Debridement Size (cm) - Length 2.4 -Post Debridement Size (cm) - Width 5.0 -Post Debridement Size (cm) - Depth 0.2 -Total Square (cm) 12.00 -Wound/Ulcer Outcome Not Healed -Ulcer Cleansing Rinsed/ Irrigated with Saline -Foul Odor after Cleansing No -Bioengineered Tissue No -Bleeding Controlled with Pressure -Offloading No -Treatment Response Procedure Tolerated Well #10 Left Medial Ankle -Time 09:39 -Correct Patient Yes -Correct Side, Site, Position Yes -Correct Procedure Yes -Procedure Performed Yes -Type of Procedure Debridement -Clinical Debridement Subcutaneous -Post Debridement Size (cm) - Length 4.3 -Post Debridement Size (cm) - Width 2.4 -Post Debridement Size (cm) - Depth 0.2 -Total Square (cm) 10.32 -Wound/Ulcer Outcome Not Healed -Ulcer Cleansing Rinsed/ Irrigated with Saline -Foul Odor after Cleansing No -Bioengineered Tissue No -Bleeding Controlled with Pressure -Offloading No -Treatment Response Procedure Tolerated Well Pain Scale: 0-10 Numeric Is Patient Pain Free? Yes Wound debrided: Left medial ankle Type of Debridement: Excisional debridement Anesthesia Used: 4% Lidocaine Solution Depth: Down to and including healthy tissue, in the subcutaneous layer Percentage of wound debrided: 100 Instrument Used: 5mm curette Tissue Removed: Slough and devitalized tissue Severity: Fat Layer Exposed Amount of bleeding with debridement: Mild Bleeding Controlled with: Pressure Patient tolerated procedure well - Additional Wound Wound debrided: Left lower extremity inferior Type of Debridement: Excisional debridement Anesthesia Used: 4% Lidocaine Solution Depth: Down to and including healthy tissue, in the subcutaneous layer Percentage of wound debrided: 100 Instrument Used: 5mm curette Tissue Removed: Slough and devitalized tissue Severity: Fat Layer Exposed Amount of bleeding with debridement: Mild Bleeding Controlled with: Pressure Patient tolerated procedure: Patient tolerated procedure well - Additional Wound Wound debrided: Left lower extremity superior cluster Type of Debridement: Excisional debridement Anesthesia Used: 4% Lidocaine Solution Depth: Down to and including healthy tissue, in the subcutaneous layer Percentage of wound debrided: 100 Instrument Used: 5mm curette Tissue Removed: Slough and devitalized tissue Severity: Fat Layer Exposed Amount of bleeding with debridement: Mild Bleeding Controlled with: Pressure Patient tolerated procedure: Patient tolerated procedure well Assessment/Plan Active Problems Ulcer of left lower extremity with fat layer exposed (Chronic) Chronic venous insufficiency (Chronic) Delayed wound healing (Chronic) Varicose veins with ulcer and inflammation (Chronic) Assessment: Chronic left leg ulcer. Venous insufficiency. Leg edema. Delayed ulcer healing. Plan: Debridement done as documented above, procedure was well tolerated. Cultures taken due to pain. For now, continue Scope 5 with keramax over top. Continue use of compression stockings, leg elevation and exercise. Increased protein intake , protein supplements, zinc and vitamin C also recommended. His questions were answered and he was advised to call with any further questions or concerns. Follow-up in 1 week. This note was generated with [email or web address] dictation software. It may contain incorrect words, spelling, and punctuation that were not noted in checking the note before signing. [id number]: [id number] Lakeisha subq tissue 20 sq cm/< Add On Codes: [id number] Lakeisha subq tissue add-on - Additional square centimeters debrided, please refer to clinical note.
[2020-06-17 09:07] VITALS: PULSE 74; RESP 18; TEMP 36.5; BMI 31.4
--- NOTE | 2020-06-17 12:57 | PCM.WC.PN ---
(1) Ulcer of left lower extremity with fat layer exposed Status: Chronic Current Visit: Yes Code(s): L97.922 - Non-pressure chronic ulcer of unspecified part of left lower leg with fat layer exposed (2) Varicose veins with ulcer and inflammation Status: Chronic Current Visit: Yes Code(s): I83.209 - Varicose veins of unspecified lower extremity with both ulcer of unspecified site and inflammation; L97.909 - Non-pressure chronic ulcer of unspecified part of unspecified lower leg with unspecified severity (3) Chronic venous insufficiency Status: Chronic Current Visit: Yes Code(s): I87.2 - Venous insufficiency (chronic) (peripheral) (4) Delayed wound healing Status: Chronic Current Visit: Yes Code(s): T14.8XXD - Other injury of unspecified body region, subsequent encounter Type of Wound Date of Service: 06/17/20 Chief Complaint: ulcers to the left lower leg History of Wound: This is a 54-year-old male presents to wound healing center with a long-standing history of chronic venous insufficiency, chronic venous hypertension, lower extremity edema, lower extremity pain, and chronic left lower extremity ulcer. 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 He is currently wearing graduated compression stockings which are documented to be 20-30 mmHg compression and these are thigh high. He reports great compliance with use. He is also had previous arterial work-up with no intervention recommended by letter, his vascular surgeon. He denies taking nutritional supplementation. He saw dermatology and had a biopsy of the ulcer site. He also was previously treated by infectious disease for various contaminations and infections. He is not antibiotics at this time nor does he have any redness or odor coming from the wound. He denies fever, chill, nausea, vomiting, loss of appetite. Progress of Wound: Completed 7 days of Antibiotics and pain is said to have improved. - Physical Exam Vital Signs Temp Pulse Resp BP 97.7 F L 74 18 151/95 H 06/17/20 09:07 06/17/20 09:07 06/17/20 09:07 06/03/20 09:13 General: Alert, Oriented x3, Cooperative, No apparent distress HEENT: Atraumatic, Normocephalic Oral: Moist Mucosa Neck: Supple Lungs: Normal air movement Extremities: No cyanosis Skin: Ulcer/ Wound Wound Measurements and Assessment WC - Nurse 1 - General Ulcer Measurement Start: 06/03/20 09:13 Freq: Status: Active Protocol: Activity Type Activity Date Activity User E-Sign Co-Sign Detail Recorded Client Recorded Date Recorded By Document 06/17/20 09:07 [email or web address] [id number] 06/17/20 09:13 RB 06/17/20 09:07 Wound Center Nurse 1 [Ulcer Assessment] #12 Medial Superior LLE -Combined with other wound No -Current Size (cm) - Length 6.3 -Current Size (cm) - Width 2.3 -Current Size (cm) - Depth 0.2 -Total Square Cm 14.49 -Tunneling No -Undermining/Tunneling No -Circular Undermining No -Exudate Amt Medium -Exudate Type Serosanguineous -Wound Margin Thickened -Granulation Amt Medium (34-66%) -Granulation Quality [place] -Slough/Fibrin Yes -Necrosis Amt Medium (34-66%) -Necrotic Tissue Type Adherent Slough -Structure Exposed N/A -Texture (Ara-wound Skin Appearance) Assessed -Moisture (Ara-wound Skin Appearance Assessed ) -Color (Ara-wound Skin Appearance) Hemosiderin Staining -Temperature (Ara-wound Skin No Abnormality Appearance) (Pt Warm) -Tenderness on Palpation (Ara-wound No Skin Appearance) -Ulcer Cleansing Wound Cleanser -Foul Odor after Cleansing No -Anesthetic Used 4% Lidocaine Solution #11 Medial Inferior LLE -Combined with other wound No -Current Size (cm) - Length 5.5 -Current Size (cm) - Width 2 -Current Size (cm) - Depth 0.2 -Total Square Cm 11.0 -Tunneling No -Undermining/Tunneling No -Circular Undermining No -Exudate Amt Medium -Exudate Type Serosanguineous -Wound Margin Thickened -Granulation Amt Medium (34-66%) -Granulation Quality [place] -Slough/Fibrin Yes -Necrosis Amt Medium (34-66%) -Necrotic Tissue Type Adherent Slough -Structure Exposed N/A -Texture (Ara-wound Skin Appearance) Assessed -Moisture (Ara-wound Skin Appearance Assessed ) -Color (Ara-wound Skin Appearance) Hemosiderin Staining -Temperature (Ara-wound Skin No Abnormality Appearance) (Pt Warm) -Tenderness on Palpation (Ara-wound No Skin Appearance) -Ulcer Cleansing Wound Cleanser -Foul Odor after Cleansing No -Anesthetic Used 4% Lidocaine Solution #10 Left Medial Ankle -Combined with other wound No -Current Size (cm) - Length 5 -Current Size (cm) - Width 3.5 -Current Size (cm) - Depth 0.2 -Total Square Cm 17.5 -Tunneling No -Undermining/Tunneling No -Circular Undermining No -Exudate Amt Small -Exudate Type Serosanguineous -Wound Margin Thickened -Granulation Amt Medium (34-66%) -Granulation Quality [place] -Slough/Fibrin Yes -Necrosis Amt Medium (34-66%) -Necrotic Tissue Type Adherent Slough -Structure Exposed N/A -Texture (Ara-wound Skin Appearance) Assessed -Moisture (Ara-wound Skin Appearance Dry/Scaly ) -Color (Ara-wound Skin Appearance) Assessed, Hemosiderin Staining -Temperature (Ara-wound Skin No Abnormality Appearance) (Pt Warm) -Tenderness on Palpation (Ara-wound No Skin Appearance) -Ulcer Cleansing Wound Cleanser -Foul Odor after Cleansing No -Anesthetic Used 4% Lidocaine Solution [Edema Assessment] -Lower Limb Edema Present Yes -Left Calf (cm) 36 -Left Ankle (cm) 25 WC - Nurse 2 - General Ulcer CM Notes Start: 06/15/20 19:56 Freq: Status: Active Protocol: Activity Type Activity Date Activity User E-Sign Co-Sign Detail Recorded Client Recorded Date Recorded By Document 06/17/20 09:41 MW [id number] 06/17/20 09:55 MW 06/17/20 09:41 Wound Center Nurse 2 [Procedure/Treatment] #12 Medial Superior LLE -Time 09:43 -Correct Patient Yes -Correct Side, Site, Position Yes -Correct Procedure Yes -Procedure Performed Yes -Type of Procedure Debridement -Clinical Debridement Subcutaneous -Tissue Removed Subcutaneous -Post Debridement (cm) - Length 4.5 -Post Debridement (cm) - Width 5.5 -Post Debridement (cm) - Depth 0.2 -Total Square (Post) (cm) 24.75 -Area of Debridement (cm) - Length 4.5 -Area of Debridement (cm) - Width 5.5 -Total Square (Area) (cm) 24.75 -Tunneling No -Undermining/Tunneling No -Circular Undermining No -Wound/Ulcer Outcome Not Healed -Ulcer Cleansing Rinsed/ Irrigated with Saline -Foul Odor after Cleansing No -Bioengineered Tissue No -Bleeding Controlled with Pressure -Offloading No -Debridement - Subq, 1st 20sq cm Yes -Debridement, SubQ, ea addt'l 20sq cm 2 or part thereof #11 Medial Inferior LLE -Time 09:44 -Correct Patient Yes -Correct Side, Site, Position Yes -Correct Procedure Yes -Procedure Performed Yes -Type of Procedure Debridement -Clinical Debridement Subcutaneous -Tissue Removed Subcutaneous -Post Debridement (cm) - Length 2.5 -Post Debridement (cm) - Width 6.0 -Post Debridement (cm) - Depth 0.2 -Total Square (Post) (cm) 15.00 -Area of Debridement (cm) - Length 2.5 -Area of Debridement (cm) - Width 6.0 -Total Square (Area) (cm) 15.00 -Tunneling No -Undermining/Tunneling No -Circular Undermining No -Wound/Ulcer Outcome Not Healed -Ulcer Cleansing Rinsed/ Irrigated with Saline -Foul Odor after Cleansing No -Bioengineered Tissue No -Bleeding Controlled with Pressure -Offloading No -Debridement - Subq, 1st 20sq cm No #10 Left Medial Ankle -Time 09:44 -Correct Patient Yes -Correct Side, Site, Position Yes -Correct Procedure Yes -Procedure Performed Yes -Type of Procedure Debridement -Clinical Debridement Subcutaneous -Tissue Removed Subcutaneous -Post Debridement (cm) - Length 4.0 -Post Debridement (cm) - Width 3.0 -Post Debridement (cm) - Depth 0.2 -Total Square (Post) (cm) 12.00 -Area of Debridement (cm) - Length 4.0 -Area of Debridement (cm) - Width 3.0 -Total Square (Area) (cm) 12.00 -Tunneling No -Undermining/Tunneling No -Circular Undermining No -Ulcer Cleansing Rinsed/ Irrigated with Saline -Foul Odor after Cleansing No -Bioengineered Tissue No -Bleeding Controlled with Pressure -Offloading No -Debridement - Subq, 1st 20sq cm No [See Physician Procedure note for Specifics] Pain Scale: 0-10 Numeric [Pain] -Is Patient Pain Free? Yes - Nurse 3 - General Ulcer D/C NN Start: 06/15/20 19:56 Freq: Status: Active Protocol: Activity Type Activity Date Activity User E-Sign Co-Sign Detail Recorded Client Recorded Date Recorded By Document 06/17/20 10:01 [facility] [id number] 06/17/20 10:03 [facility] 06/17/20 10:01 Wound Care Nurse 3 [Wound Dressing] #12 Medial Superior LLE -Ulcer Cleansing Rinsed/ Irrigated with Saline -Foul Odor after Cleansing No -Primary Dressing Applied Fibracol Plus 4x4,Other -Other Dressing adaptic -Primary Dressing Covered/Secured Dry Gauze & with Roll Gauze, Secured with Tape -Other Covering abd -Fibracol Plus 4x4 2 #11 Medial Inferior LLE -Ulcer Cleansing Rinsed/ Irrigated with Saline -Foul Odor after Cleansing No -Primary Dressing Applied Other -Other Dressing fibracol and pts own keramax , adaptic -Primary Dressing Covered/Secured Dry Gauze & with Roll Gauze, Secured with Tape -Fibracol Plus 4x4 0 #10 Left Medial Ankle -Ulcer Cleansing Rinsed/ Irrigated with Saline -Foul Odor after Cleansing No -Primary Dressing Applied Other -Other Dressing fibracol, pts own keramax, adaptic -Primary Dressing Covered/Secured Dry Gauze & with Roll Gauze, Secured with Tape -Fibracol Plus 4x4 0 [Compression Applied] Left -Stockings Yes: pts own compression [Post Procedure Tolerated] -Treatment Response Procedure Tolerated Well Pain Scale: 0-10 Numeric [Pain] -Is Patient Pain Free? Yes - Visit Discharge [Visit Discharge Information] -Discharge Condition Stable -Ambulatory Status Ambulatory -Transportation Private Auto Musculoskeletal: No Muscle Wasting Neurological: Cranial nerves II-XII grossly intact Psych/Mental Status: Normal Affect Debridement Note Post-Debridement Measurements/Treatment - Nurse 2 - General Ulcer CM Notes Start: 06/15/20 19:56 Freq: Status: Active Protocol: Activity Type Activity Date Activity User E-Sign Co-Sign Detail Recorded Client Recorded Date Recorded By Document 06/17/20 09:41 MW [id number] 06/17/20 09:55 MW 06/17/20 09:41 Wound Center Nurse 2 #12 Medial Superior LLE -Time 09:43 -Correct Patient Yes -Correct Side, Site, Position Yes -Correct Procedure Yes -Procedure Performed Yes -Type of Procedure Debridement -Clinical Debridement Subcutaneous -Tissue Removed Subcutaneous -Post Debridement (cm) - Length 4.5 -Post Debridement (cm) - Width 5.5 -Post Debridement (cm) - Depth 0.2 -Total Square (Post) (cm) 24.75 -Area of Debridement (cm) - Length 4.5 -Area of Debridement (cm) - Width 5.5 -Total Square (Area) (cm) 24.75 -Tunneling No -Undermining/Tunneling No -Circular Undermining No -Wound/Ulcer Outcome Not Healed -Ulcer Cleansing Rinsed/ Irrigated with Saline -Foul Odor after Cleansing No -Bioengineered Tissue No -Bleeding Controlled with Pressure -Offloading No -Debridement - Subq, 1st 20sq cm Yes -Debridement, SubQ, ea addt'l 20sq cm 2 or part thereof #11 Medial Inferior LLE -Time 09:44 -Correct Patient Yes -Correct Side, Site, Position Yes -Correct Procedure Yes -Procedure Performed Yes -Type of Procedure Debridement -Clinical Debridement Subcutaneous -Tissue Removed Subcutaneous -Post Debridement (cm) - Length 2.5 -Post Debridement (cm) - Width 6.0 -Post Debridement (cm) - Depth 0.2 -Total Square (Post) (cm) 15.00 -Area of Debridement (cm) - Length 2.5 -Area of Debridement (cm) - Width 6.0 -Total Square (Area) (cm) 15.00 -Tunneling No -Undermining/Tunneling No -Circular Undermining No -Wound/Ulcer Outcome Not Healed -Ulcer Cleansing Rinsed/ Irrigated with Saline -Foul Odor after Cleansing No -Bioengineered Tissue No -Bleeding Controlled with Pressure -Offloading No -Debridement - Subq, 1st 20sq cm No #10 Left Medial Ankle -Time 09:44 -Correct Patient Yes -Correct Side, Site, Position Yes -Correct Procedure Yes -Procedure Performed Yes -Type of Procedure Debridement -Clinical Debridement Subcutaneous -Tissue Removed Subcutaneous -Post Debridement (cm) - Length 4.0 -Post Debridement (cm) - Width 3.0 -Post Debridement (cm) - Depth 0.2 -Total Square (Post) (cm) 12.00 -Area of Debridement (cm) - Length 4.0 -Area of Debridement (cm) - Width 3.0 -Total Square (Area) (cm) 12.00 -Tunneling No -Undermining/Tunneling No -Circular Undermining No -Ulcer Cleansing Rinsed/ Irrigated with Saline -Foul Odor after Cleansing No -Bioengineered Tissue No -Bleeding Controlled with Pressure -Offloading No -Debridement - Subq, 1st 20sq cm No Pain Scale: 0-10 Numeric Is Patient Pain Free? Yes - Nurse 3 - General Ulcer D/C NN Start: 06/15/20 19:56 Freq: Status: Active Protocol: Activity Type Activity Date Activity User E-Sign Co-Sign Detail Recorded Client Recorded Date Recorded By Document 06/17/20 10:01 [facility] [id number] 06/17/20 10:03 [facility] 06/17/20 10:01 Wound Care Nurse 3 #12 Medial Superior LLE -Ulcer Cleansing Rinsed/ Irrigated with Saline -Foul Odor after Cleansing No -Primary Dressing Applied Fibracol Plus 4x4,Other -Other Dressing adaptic -Primary Dressing Covered/Secured with Dry Gauze & Roll Gauze, Secured with Tape -Other Covering abd -Fibracol Plus 4x4 2 #11 Medial Inferior LLE -Ulcer Cleansing Rinsed/ Irrigated with Saline -Foul Odor after Cleansing No -Primary Dressing Applied Other -Other Dressing fibracol and pts own keramax , adaptic -Primary Dressing Covered/Secured with Dry Gauze & Roll Gauze, Secured with Tape -Fibracol Plus 4x4 0 #10 Left Medial Ankle -Ulcer Cleansing Rinsed/ Irrigated with Saline -Foul Odor after Cleansing No -Primary Dressing Applied Other -Other Dressing fibracol, pts own keramax, adaptic -Primary Dressing Covered/Secured with Dry Gauze & Roll Gauze, Secured with Tape -Fibracol Plus 4x4 0 Left -Stockings Yes: pts own compression Treatment Response Procedure Tolerated Well Pain Scale: 0-10 Numeric Is Patient Pain Free? Yes - Visit Discharge Discharge Condition Stable Ambulatory Status Ambulatory Transportation Private Auto Wound debrided: Left Medial Ankle Type of Debridement: Excisional debridement Anesthesia Used: 4% Lidocaine Solution Depth: Down to and including healthy tissue, in the subcutaneous layer Percentage of wound debrided: 100 Instrument Used: 5mm curette Tissue Removed: Slough and devitalized tissue Severity: Fat Layer Exposed Amount of bleeding with debridement: Mild Bleeding Controlled with: Pressure Patient tolerated procedure well - Additional Wound Wound debrided: Left Guan ( Inferior ) Type of Debridement: Excisional debridement Anesthesia Used: 4% Lidocaine Solution Depth: Down to and including healthy tissue, in the subcutaneous layer Percentage of wound debrided: 100 Instrument Used: 5mm curette Tissue Removed: Slough and devitalized tissue Severity: Fat Layer Exposed Amount of bleeding with debridement: Mild Bleeding Controlled with: Pressure Patient tolerated procedure: Patient tolerated procedure well - Additional Wound Wound debrided: Left Guan ( Superior Cluster ) Type of Debridement: Excisional debridement Anesthesia Used: 4% Lidocaine Solution Depth: Down to and including healthy tissue, in the subcutaneous layer Percentage of wound debrided: 100 Instrument Used: 5mm curette Tissue Removed: Slough and devitalized tissue Severity: Fat Layer Exposed Amount of bleeding with debridement: Mild Bleeding Controlled with: Pressure Patient tolerated procedure: Patient tolerated procedure well Assessment/Plan Active Problems Ulcer of left lower extremity with fat layer exposed (Chronic) Chronic venous insufficiency (Chronic) Delayed wound healing (Chronic) Varicose veins with ulcer and inflammation (Chronic) Assessment: Chronic left leg ulcer. Venous insufficiency. Leg edema. Delayed ulcer healing. Plan: Debridement done as documented above, procedure was well tolerated. Extend antibiotics for 5 more days. Switch to Fibrocol and continue with Keramax daily. Continue use of compression stockings, leg elevation and exercise. Increased protein intake , protein supplements, zinc and vitamin C also recommended. His questions were answered and he was advised to call with any further questions or concerns. Follow-up in 2 weeks per patient perference. This note was generated with [employer] software. It may contain incorrect words, spelling, and punctuation that were not noted in checking the note before signing. [id number]: 22019 [place] subq tissue 20 sq cm/< Add On Codes: [id number] Lakeisha subq tissue add-on - Additional square centimeter debrided, please refer to clinical note.
== END 2020-06-28 23:59 ==
LOC: WC 09:00
PROVIDERS: Visit Provider Internal Medicine
DX: I83.223 Varicose veins of left lower extremity with both ulcer of ankle and inflammation (principal); L97.322 Non-pressure chronic ulcer of left ankle with fat layer exposed; I83.228 Varicose veins of left lower extremity with both ulcer of other part of lower extremity and inflammation; L97.822 Non-pressure chronic ulcer of other part of left lower leg with fat layer exposed; R60.0 Localized edema; M79.606 Pain in leg, unspecified
CPT/HCPCS: 11042; 11045; 87070; 87075; 87077; 87186; 87205

== ENCOUNTER 2020-07-22 09:00 | Outpatient (RCR) | payer BC, SELFPAY ==
[2020-06-29 00:46] VITALS: BP 151/95; PULSE 74; RESP 18; TEMP 36.5
[2020-07-01 09:12] VITALS: BP 163/77; PULSE 87; RESP 16; TEMP 36.3; BMI 31.4
--- NOTE | 2020-07-01 09:52 | PN.PCM_ITS ---
(1) Ulcer of left lower extremity with fat layer exposed Status: Chronic Current Visit: Yes Code(s): L97.922 - Non-pressure chronic ulcer of unspecified part of left lower leg with fat layer exposed (2) Chronic venous insufficiency Status: Chronic Current Visit: Yes Code(s): I87.2 - Venous insufficiency (chronic) (peripheral) (3) Delayed wound healing Status: Chronic Current Visit: Yes Code(s): T14.8XXD - Other injury of unspecified body region, subsequent encounter (4) PVD (peripheral vascular disease) Status: Chronic Current Visit: Yes Code(s): I73.9 - Peripheral vascular disease, unspecified (5) Venous hypertension, chronic, with ulcer and inflammation Status: Chronic Current Visit: Yes Code(s): I87.339 - Chronic venous hypertension (idiopathic) with ulcer and inflammation of unspecified lower extremity Type of Wound Date of Service: 07/01/20 Chief Complaint: ulcers to the left lower leg History of Wound: This is a 54-year-old male presents to wound healing center with a long-standing history of chronic venous insufficiency, chronic venous hypertension, lower extremity edema, lower extremity pain, and chronic left lower extremity ulcer. The patient has previously undergone endovenous laser ablation of the left and right great saphenous vein, the small saphenous vein, the left accessory saphenous vein, and an incompetent left calf ui programmer vein located 15 cm proximal to the left medial malleolus. He is currently wearing graduated compression stockings which are documented to be 20-30 mmHg compression and these are thigh high. He reports great compliance with use. He is also had previous arterial work-up with no intervention recommended by letter, his vascular surgeon. He denies taking nutritional supplementation. He saw dermatology and had a biopsy of the ulcer site. He also was previously treated by infectious disease for various contaminations and infections. He is not antibiotics at this time nor does he have any redness or odor coming from the wound. He denies fever, chill, nausea, vomiting, loss of appetite. Progress of Wound: Switch to Fibracol at his last visit, some improvement noted. No new concerns. - Physical Exam Vital Signs Temp Pulse Resp BP 97.3 F L 87 16 163/77 H 07/01/20 09:12 07/01/20 09:12 07/01/20 09:12 07/01/20 09:12 General: Alert, Oriented x3, Cooperative, No apparent distress HEENT: Atraumatic, Normocephalic Oral: Moist Mucosa Neck: Supple Lungs: Normal air movement Extremities: No cyanosis Skin: Ulcer/ Wound Wound Measurements and Assessment - Nurse 1 - General Ulcer Measurement Start: 07/01/20 09:11 Freq: Status: Active Protocol: Activity Type Activity Date Activity User E-Sign Co-Sign Detail Recorded Client Recorded Date Recorded By Document 07/01/20 09:12 [facility] [id number] 07/01/20 09:20 [facility] 07/01/20 09:12 Wound Center Nurse 1 [Ulcer Assessment] #12 Medial Superior LLE -Combined with other wound No -Current Size (cm) - Length 4.8 -Current Size (cm) - Width 5.5 -Current Size (cm) - Depth 0.3 -Total Square Cm 26.40 -Photo Taken No -Epithelialization Small 1-33% -Tunneling No -Undermining/Tunneling No -Circular Undermining No -Exudate Amt Small -Exudate Type Serosanguineous -Wound Margin Distinct, Outline Attached -Granulation Amt Large (67-100%) -Granulation Quality Red -Slough/Fibrin Yes -Necrosis Amt Small (1-33%) -Necrotic Tissue Type Adherent Slough -Texture (Ara-wound Skin Appearance) Assessed, Scarring -Moisture (Ara-wound Skin Appearance Assessed,Dry/ ) Scaly -Color (Ara-wound Skin Appearance) Assessed -Temperature (Ara-wound Skin No Abnormality Appearance) (Pt Warm) -Tenderness on Palpation (Raa-wound No Skin Appearance) -Ulcer Cleansing Rinsed/ Irrigated with Saline -Foul Odor after Cleansing No -Anesthetic Used 4% Lidocaine Solution #11 Medial Inferior LLE -Combined with other wound No -Current Size (cm) - Length 3.5 -Current Size (cm) - Width 5.3 -Current Size (cm) - Depth 0.3 -Total Square Cm 18.55 -Photo Taken No -Epithelialization Small 1-33% -Tunneling No -Undermining/Tunneling No -Circular Undermining No -Exudate Amt Small -Exudate Type Serosanguineous -Wound Margin Distinct, Outline Attached -Granulation Amt Large (67-100%) -Granulation Quality Red -Slough/Fibrin Yes -Necrosis Amt Small (1-33%) -Necrotic Tissue Type Adherent Slough -Texture (Ara-wound Skin Appearance) Assessed, Scarring -Moisture (Ara-wound Skin Appearance Assessed ) -Color (Ara-wound Skin Appearance) Assessed -Temperature (Ara-wound Skin No Abnormality Appearance) (Pt Warm) -Tenderness on Palpation (Ara-wound No Skin Appearance) -Ulcer Cleansing Rinsed/ Irrigated with Saline -Foul Odor after Cleansing No -Anesthetic Used 4% Lidocaine Solution #10 Left Medial Ankle -Combined with other wound No -Current Size (cm) - Length 4 -Current Size (cm) - Width 3.7 -Current Size (cm) - Depth 0.3 -Total Square Cm 14.8 -Photo Taken No -Epithelialization Small 1-33% -Tunneling No -Undermining/Tunneling No -Circular Undermining No -Exudate Amt Small -Exudate Type Serosanguineous -Wound Margin Distinct, Outline Attached -Granulation Amt Large (67-100%) -Granulation Quality Red -Slough/Fibrin Yes -Necrosis Amt Small (1-33%) -Necrotic Tissue Type Adherent Slough -Texture (Ara-wound Skin Appearance) Assessed, Scarring -Moisture (Ara-wound Skin Appearance Assessed,Dry/ ) Scaly -Color (Ara-wound Skin Appearance) Assessed -Temperature (Ara-wound Skin No Abnormality Appearance) (Pt Warm) -Tenderness on Palpation (Ara-wound No Skin Appearance) -Ulcer Cleansing Rinsed/ Irrigated with Saline -Foul Odor after Cleansing No -Anesthetic Used 4% Lidocaine Solution [Edema Assessment] -Lower Limb Edema Present Yes -Left Calf (cm) 37.6 -Left Ankle (cm) 23.7 WC - Nurse 2 - General Ulcer CM Notes Start: 07/01/20 09:11 Freq: Status: Active Protocol: Activity Type Activity Date Activity User E-Sign Co-Sign Detail Recorded Client Recorded Date Recorded By Document 07/01/20 09:32 MW [id number] 07/01/20 09:38 MW 07/01/20 09:32 Wound Center Nurse 2 [Procedure/Treatment] #12 [facility] LLE -Time 09:32 -Correct Patient Yes -Correct Side, Site, Position Yes -Correct Procedure Yes -Procedure Performed Yes -Type of Procedure Debridement -Clinical Debridement Subcutaneous -Tissue Removed Subcutaneous -Post Debridement (cm) - Length 4.0 -Post Debridement (cm) - Width 5.5 -Post Debridement (cm) - Depth 0.2 -Total Square (Post) (cm) 22.00 -Area of Debridement (cm) - Length 4.0 -Area of Debridement (cm) - Width 5.5 -Total Square (Area) (cm) 22.00 -Tunneling No -Undermining/Tunneling No -Circular Undermining No -Wound/Ulcer Outcome Not Healed -Ulcer Cleansing Rinsed/ Irrigated with Saline -Foul Odor after Cleansing No -Bioengineered Tissue No -Bleeding Controlled with Pressure -Offloading No -Treatment Response Procedure Tolerated Well -Debridement - Subq, 1st 20sq cm Yes -Debridement, SubQ, ea addt'l 20sq cm 2 or part thereof #11 Medial Inferior LLE -Time 09:32 -Correct Patient Yes -Correct Side, Site, Position Yes -Correct Procedure Yes -Procedure Performed Yes -Type of Procedure Debridement -Clinical Debridement Subcutaneous -Tissue Removed Subcutaneous -Post Debridement (cm) - Length 2.5 -Post Debridement (cm) - Width 5.5 -Post Debridement (cm) - Depth 0.2 -Total Square (Post) (cm) 13.75 -Area of Debridement (cm) - Length 2.5 -Area of Debridement (cm) - Width 5.5 -Total Square (Area) (cm) 13.75 -Tunneling No -Undermining/Tunneling No -Circular Undermining No -Wound/Ulcer Outcome Not Healed -Ulcer Cleansing Rinsed/ Irrigated with Saline -Foul Odor after Cleansing No -Bioengineered Tissue No -Bleeding Controlled with Pressure -Offloading No -Type of Offloading Surgical Shoe -Debridement - Subq, 1st 20sq cm No #10 Left Medial Ankle -Time 09:32 -Correct Patient Yes -Correct Side, Site, Position Yes -Correct Procedure Yes -Procedure Performed Yes -Type of Procedure Debridement -Clinical Debridement Subcutaneous -Tissue Removed Subcutaneous -Post Debridement (cm) - Length 4.0 -Post Debridement (cm) - Width 3.0 -Post Debridement (cm) - Depth 0.2 -Total Square (Post) (cm) 12.00 -Area of Debridement (cm) - Length 4.0 -Area of Debridement (cm) - Width 3.0 -Total Square (Area) (cm) 12.00 -Tunneling No -Undermining/Tunneling No -Circular Undermining No -Wound/Ulcer Outcome Not Healed -Foul Odor after Cleansing No -Bioengineered Tissue No -Bleeding Controlled with Pressure -Offloading No -Treatment Response Procedure Tolerated Well -Debridement - Subq, 1st 20sq cm No [See Physician Procedure note for Specifics] Pain Scale: 0-10 Numeric [Pain] -Is Patient Pain Free? Yes WC - Nurse 3 - General Ulcer D/C NN Start: 07/01/20 09:11 Freq: Status: Active Protocol: Activity Type Activity Date Activity User E-Sign Co-Sign Detail Recorded Client Recorded Date Recorded By Document 07/01/20 09:42 RB [id number] 07/01/20 09:44 RB 07/01/20 09:42 Wound Care Nurse 3 [Wound Dressing] #12 Medial Superior LLE -Ulcer Cleansing Rinsed/ Irrigated with Saline -Other Dressing fibracol plus, kerramax -Primary Dressing Covered/Secured Dry Gauze & with Roll Gauze, Secured with Tape #11 Medial Inferior LLE -Other Dressing fibracol plus -Primary Dressing Covered/Secured Dry Gauze & with Roll Gauze, Secured with Tape #10 Left Medial Ankle -Other Dressing fibracol plus -Primary Dressing Covered/Secured Dry Gauze & with Roll Gauze, Secured with Tape [Compression Applied] Left -Stockings Yes [Post Procedure Tolerated] -Treatment Response Procedure Tolerated Well Pain Scale: 0-10 Numeric [Pain] -Is Patient Pain Free? Yes Teaching: Wound Center [Wound Center Education] (Items with an * have Printed Materials Available- Please identify what is given to patient under the Teaching materials given to patient and caregiver Section. Skin Care -Person Taught Patient -Teaching Method Discussion, Demonstration -Response to teaching Verbalize understanding - Visit Discharge [Visit Discharge Information] -Discharge Condition Stable -Ambulatory Status Ambulatory -Transportation Private Auto -Medication Reconcilliation completed No & provided to patient/care provider -Clinical Summary of Care Provided Yes Musculoskeletal: No Muscle Wasting Neurological: Cranial nerves II-XII grossly intact Psych/Mental Status: Normal Affect Debridement Note Post-Debridement Measurements/Treatment WC - Nurse 2 - General Ulcer CM Notes Start: 07/01/20 09:11 Freq: Status: Active Protocol: Activity Type Activity Date Activity User E-Sign Co-Sign Detail Recorded Client Recorded Date Recorded By Document 09/03/20 09:32 MW [id number] 07/01/20 09:38 MW 07/01/20 09:32 Wound Center Nurse 2 #12 Medial Superior LLE -Time 09:32 -Correct Patient Yes -Correct Side, Site, Position Yes -Correct Procedure Yes -Procedure Performed Yes -Type of Procedure Debridement -Clinical Debridement Subcutaneous -Tissue Removed Subcutaneous -Post Debridement (cm) - Length 4.0 -Post Debridement (cm) - Width 5.5 -Post Debridement (cm) - Depth 0.2 -Total Square (Post) (cm) 22.00 -Area of Debridement (cm) - Length 4.0 -Area of Debridement (cm) - Width 5.5 -Total Square (Area) (cm) 22.00 -Tunneling No -Undermining/Tunneling No -Circular Undermining No -Wound/Ulcer Outcome Not Healed -Ulcer Cleansing Rinsed/ Irrigated with Saline -Foul Odor after Cleansing No -Bioengineered Tissue No -Bleeding Controlled with Pressure -Offloading No -Treatment Response Procedure Tolerated Well -Debridement - Subq, 1st 20sq cm Yes -Debridement, SubQ, ea addt'l 20sq cm 2 or part thereof #11 Medial Inferior LLE -Time 09:32 -Correct Patient Yes -Correct Side, Site, Position Yes -Correct Procedure Yes -Procedure Performed Yes -Type of Procedure Debridement -Clinical Debridement Subcutaneous -Tissue Removed Subcutaneous -Post Debridement (cm) - Length 2.5 -Post Debridement (cm) - Width 5.5 -Post Debridement (cm) - Depth 0.2 -Total Square (Post) (cm) 13.75 -Area of Debridement (cm) - Length 2.5 -Area of Debridement (cm) - Width 5.5 -Total Square (Area) (cm) 13.75 -Tunneling No -Undermining/Tunneling No -Circular Undermining No -Wound/Ulcer Outcome Not Healed -Ulcer Cleansing Rinsed/ Irrigated with Saline -Foul Odor after Cleansing No -Bioengineered Tissue No -Bleeding Controlled with Pressure -Offloading No -Type of Offloading Surgical Shoe -Debridement - Subq, 1st 20sq cm No #10 Left Medial Ankle -Time 09:32 -Correct Patient Yes -Correct Side, Site, Position Yes -Correct Procedure Yes -Procedure Performed Yes -Type of Procedure Debridement -Clinical Debridement Subcutaneous -Tissue Removed Subcutaneous -Post Debridement (cm) - Length 4.0 -Post Debridement (cm) - Width 3.0 -Post Debridement (cm) - Depth 0.2 -Total Square (Post) (cm) 12.00 -Area of Debridement (cm) - Length 4.0 -Area of Debridement (cm) - Width 3.0 -Total Square (Area) (cm) 12.00 -Tunneling No -Undermining/Tunneling No -Circular Undermining No -Wound/Ulcer Outcome Not Healed -Foul Odor after Cleansing No -Bioengineered Tissue No -Bleeding Controlled with Pressure -Offloading No -Treatment Response Procedure Tolerated Well -Debridement - Subq, 1st 20sq cm No Pain Scale: 0-10 Numeric Is Patient Pain Free? Yes - Nurse 3 - General Ulcer D/C NN Start: 07/01/20 09:11 Freq: Status: Active Protocol: Activity Type Activity Date Activity User E-Sign Co-Sign Detail Recorded Client Recorded Date Recorded By Document 07/01/20 09:42 RB [id number] 07/01/20 09:44 RB 07/01/20 09:42 Wound Care Nurse 3 #12 Medial Superior LLE -Ulcer Cleansing Rinsed/ Irrigated with Saline -Other Dressing fibracol plus, kerramax -Primary Dressing Covered/Secured with Dry Gauze & Roll Gauze, Secured with Tape #11 Medial Inferior LLE -Other Dressing fibracol plus -Primary Dressing Covered/Secured with Dry Gauze & Roll Gauze, Secured with Tape #10 Left Medial Ankle -Other Dressing fibracol plus -Primary Dressing Covered/Secured with Dry Gauze & Roll Gauze, Secured with Tape Left -Stockings Yes Treatment Response Procedure Tolerated Well Pain Scale: 0-10 Numeric Is Patient Pain Free? Yes Teaching: Wound Center Skin Care -Person Taught Patient -Teaching Method Discussion, Demonstration -Response to teaching Verbalize understanding WC - Visit Discharge Discharge Condition Stable Ambulatory Status Ambulatory Transportation Private Auto Medication Reconcilliation completed & No provided to patient/care provider Clinical Summary of Care Provided Yes Wound debrided: Left medial ankle Type of Debridement: Excisional debridement Anesthesia Used: 4% Lidocaine Solution Depth: Down to and including healthy tissue, in the subcutaneous layer Percentage of wound debrided: 100 Instrument Used: 5mm curette Tissue Removed: Slough and devitalized tissue Severity: Fat Layer Exposed Amount of bleeding with debridement: Mild Bleeding Controlled with: Pressure Patient tolerated procedure well - Additional Wound Wound debrided: Left may inferior Type of Debridement: Excisional debridement Anesthesia Used: 4% Lidocaine Solution Depth: Down to and including healthy tissue, in the subcutaneous layer Percentage of wound debrided: 100 Instrument Used: 5mm curette Tissue Removed: Slough and devitalized tissue Severity: Fat Layer Exposed Amount of bleeding with debridement: Mild Bleeding Controlled with: Pressure Patient tolerated procedure: Patient tolerated procedure well - Additional Wound Wound debrided: Left may superior Type of Debridement: Excisional debridement Anesthesia Used: 4% Lidocaine Solution Depth: Down to and including healthy tissue, in the subcutaneous layer Percentage of wound debrided: 100 Instrument Used: 5mm curette Tissue Removed: Slough and devitalized tissue Severity: Fat Layer Exposed Amount of bleeding with debridement: Mild Bleeding Controlled with: Pressure Patient tolerated procedure: Patient tolerated procedure well Assessment/Plan Active Problems Ulcer of left lower extremity with fat layer exposed (Chronic) PVD (peripheral vascular disease) (Chronic) Chronic venous insufficiency (Chronic) Delayed wound healing (Chronic) Venous hypertension, chronic, with ulcer and inflammation (Chronic) Assessment: Chronic left leg ulcer. Venous insufficiency. Leg edema. Delayed ulcer healing. Plan: Debridement done as documented above, procedure was well tolerated. Some improvement noted. Continue Fibrocol and Keramax daily. Continue use of compression stockings, leg elevation and exercise. Increased protein intake , protein supplements, zinc and vitamin C also recommended. His questions were answered and he was advised to call with any further questions or concerns. Follow-up in 1 week. This note was generated with [employer] dictation software. It may contain incorrect words, spelling, and punctuation that were not noted in checking the note before signing. [id number]: [id number] Lakeisha subq tissue 20 sq cm/< Add On Codes: [id number] Lakeisha subq tissue add-on - Additional square centimeter debrided, please refer to clinical note.
[2020-07-08 09:41] VITALS: BP 155/97; PULSE 86; RESP 18; TEMP 36.1; BMI 31.4
--- NOTE | 2020-07-08 11:12 | PN.PCM_ITS ---
(1) Ulcer of left lower extremity with fat layer exposed Status: Chronic Current Visit: Yes Code(s): L97.922 - Non-pressure chronic ulcer of unspecified part of left lower leg with fat layer exposed (2) PVD (peripheral vascular disease) Status: Chronic Current Visit: Yes Code(s): I73.9 - Peripheral vascular disease, unspecified (3) Chronic venous insufficiency Status: Chronic Current Visit: Yes Code(s): I87.2 - Venous insufficiency (chronic) (peripheral) (4) Edema, lower extremity Status: Chronic Current Visit: Yes Code(s): R60.0 - Localized edema (5) Pain of left lower extremity Status: Chronic Current Visit: Yes Code(s): M79.605 - Pain in left leg Type of Wound Date of Service: 07/08/20 Chief Complaint: ulcers to the left lower leg History of Wound: This is a 54-year-old male presents to wound healing center with a long-standing history of chronic venous insufficiency, chronic venous hypertension, lower extremity edema, lower extremity pain, and chronic left lower extremity ulcer. 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 He is currently wearing graduated compression stockings which are documented to be 20-30 mmHg compression and these are thigh high. He reports great compliance with use. He is also had previous arterial work-up with no intervention recommended by letter, his vascular surgeon. He denies taking nutritional supplementation. He saw dermatology and had a biopsy of the ulcer site. He also was previously treated by infectious disease for various contaminations and infections. He is not antibiotics at this time nor does he have any redness or odor coming from the wound. He denies fever, chill, nausea, vomiting, loss of appetite. Progress of Wound: Wound care has been Fibracol, today his ulcers are larger. Will start him on Aquacel- Ag to see if this helps with the ulcer. He has completed his antibiotics. - Physical Exam Vital Signs Temp Pulse Resp BP 96.9 F L 86 18 155/97 H 07/08/20 09:41 07/08/20 09:41 07/08/20 09:41 07/08/20 09:41 General: Alert, Oriented x3, Cooperative HEENT: Atraumatic Oral: Moist Mucosa Lungs: Normal air movement Cardiovascular: Regular rate Extremities: Capillary Refill Less than 3 Seconds, Edema Skin: Ulcer/ Wound - Left medial superior left ulcer, left inferior leg ulcer and left medial ankle ulcer. Wound Measurements and Assessment WC - Nurse 1 - General Ulcer Measurement Start: 07/01/20 09:11 Freq: Status: Active Protocol: Activity Type Activity Date Activity User E-Sign Co-Sign Detail Recorded Client Recorded Date Recorded By Document 07/08/20 09:41 WA [email or web address] 07/08/20 09:53 WA 07/08/20 09:41 Wound Center Nurse 1 [Ulcer Assessment] #12 Medial Superior LLE -Current Size (cm) - Length 5.0 -Current Size (cm) - Width 5.5 -Current Size (cm) - Depth 0.2 -Total Square Cm 27.50 -Exudate Amt Medium -Exudate Type Serosanguineous -Wound Margin Thickened -Granulation Amt Large (67-100%) -Granulation Quality Pale,Rainelle -Necrosis Amt Small (1-33%) -Necrotic Tissue Type Adherent Slough -Texture (Ara-wound Skin Appearance) Assessed -Moisture (Ara-wound Skin Appearance Assessed ) -Color (Ara-wound Skin Appearance) Assessed, Hemosiderin Staining -Temperature (Ara-wound Skin No Abnormality Appearance) (Pt Warm) -Tenderness on Palpation (Ara-wound No Skin Appearance) -Ulcer Cleansing Rinsed/ Irrigated with Saline -Foul Odor after Cleansing No -Anesthetic Used 4% Lidocaine Solution #11 Medial Inferior LLE -Current Size (cm) - Length 5.3 -Current Size (cm) - Width 3.0 -Current Size (cm) - Depth 0.2 -Total Square Cm 15.90 -Exudate Amt Medium -Exudate Type Serosanguineous -Wound Margin Thickened -Granulation Amt Large (67-100%) -Granulation Quality Pale,Rainelle -Necrosis Amt Small (1-33%) -Texture (Ara-wound Skin Appearance) Assessed -Moisture (Ara-wound Skin Appearance Assessed ) -Color (Ara-wound Skin Appearance) Assessed, Hemosiderin Staining -Temperature (Ara-wound Skin No Abnormality Appearance) (Pt Warm) -Tenderness on Palpation (Ara-wound No Skin Appearance) -Ulcer Cleansing Rinsed/ Irrigated with Saline -Foul Odor after Cleansing No -Anesthetic Used 4% Lidocaine Solution #10 Left Medial Ankle -Current Size (cm) - Length 4.5 -Current Size (cm) - Width 4.0 -Current Size (cm) - Depth 0.2 -Total Square Cm 18.00 -Exudate Amt Small -Exudate Type Serosanguineous -Wound Margin Thickened -Granulation Amt Large (67-100%) -Granulation Quality Pale,Rainelle -Slough/Fibrin Yes -Necrosis Amt Small (1-33%) -Texture (Ara-wound Skin Appearance) Assessed,Callus -Moisture (Ara-wound Skin Appearance Assessed ) -Color (Ara-wound Skin Appearance) Assessed, Hemosiderin Staining -Temperature (Ara-wound Skin No Abnormality Appearance) (Pt Warm) -Tenderness on Palpation (Ara-wound No Skin Appearance) -Ulcer Cleansing Rinsed/ Irrigated with Saline -Foul Odor after Cleansing No -Anesthetic Used 4% Lidocaine Solution [Edema Assessment] -Left Calf (cm) 36 -Left Ankle (cm) 27 WC - Nurse 2 - General Ulcer CM Notes Start: 07/01/20 09:11 Freq: Status: Active Protocol: Activity Type Activity Date Activity User E-Sign Co-Sign Detail Recorded Client Recorded Date Recorded By Document 07/08/20 10:20 MW [id number] 07/08/20 10:28 MW 07/08/20 10:20 Wound Center Nurse 2 [Procedure/Treatment] #12 Medial Superior LLE -Time 10:20 -Correct Patient Yes -Correct Side, Site, Position Yes -Correct Procedure Yes -Procedure Performed Yes -Type of Procedure Debridement -Clinical Debridement Subcutaneous -Tissue Removed Subcutaneous -Post Debridement (cm) - Length 4.4 -Post Debridement (cm) - Width 6.0 -Post Debridement (cm) - Depth 0.2 -Total Square (Post) (cm) 26.40 -Area of Debridement (cm) - Length 4.4 -Area of Debridement (cm) - Width 6.0 -Total Square (Area) (cm) 26.40 -Tunneling No -Undermining/Tunneling No -Circular Undermining No -Wound/Ulcer Outcome Not Healed -Ulcer Cleansing Rinsed/ Irrigated with Saline -Foul Odor after Cleansing No -Bioengineered Tissue No -Bleeding Controlled with Pressure -Offloading No -Treatment Response Procedure Tolerated Well -Debridement - Subq, 1st 20sq cm Yes -Debridement, SubQ, ea addt'l 20sq cm 3 or part thereof #11 Medial Inferior LLE -Time 10:21 -Correct Patient Yes -Correct Side, Site, Position Yes -Correct Procedure Yes -Procedure Performed Yes -Type of Procedure Debridement -Clinical Debridement Subcutaneous -Tissue Removed Subcutaneous -Post Debridement (cm) - Length 4.0 -Post Debridement (cm) - Width 6.0 -Post Debridement (cm) - Depth 0.2 -Total Square (Post) (cm) 24.00 -Area of Debridement (cm) - Length 4.0 -Area of Debridement (cm) - Width 6.0 -Total Square (Area) (cm) 24.00 -Tunneling No -Undermining/Tunneling No -Circular Undermining No -Wound/Ulcer Outcome Not Healed -Ulcer Cleansing Rinsed/ Irrigated with Saline -Foul Odor after Cleansing No -Bioengineered Tissue No -Bleeding Controlled with Pressure -Offloading No -Debridement - Subq, 1st 20sq cm No #10 Left Medial Ankle -Time 10:22 -Correct Patient Yes -Correct Side, Site, Position Yes -Correct Procedure Yes -Procedure Performed Yes -Type of Procedure Debridement -Clinical Debridement Subcutaneous -Tissue Removed Subcutaneous -Post Debridement (cm) - Length 4.8 -Post Debridement (cm) - Width 4.0 -Post Debridement (cm) - Depth 0.4 -Total Square (Post) (cm) 19.20 -Area of Debridement (cm) - Length 4.8 -Area of Debridement (cm) - Width 4.0 -Total Square (Area) (cm) 19.20 -Tunneling No -Undermining/Tunneling No -Circular Undermining No -Wound/Ulcer Outcome Not Healed -Ulcer Cleansing Rinsed/ Irrigated with Saline -Foul Odor after Cleansing No -Bioengineered Tissue No -Bleeding Controlled with Pressure -Offloading No -Debridement - Subq, 1st 20sq cm No [See Physician Procedure note for Specifics] Pain Scale: 0-10 Numeric [Pain] -Is Patient Pain Free? Yes Musculoskeletal: Tenderness Neurological: Cranial nerves II-XII grossly intact Psych/Mental Status: Normal Affect, Appropriate Debridement Note Post-Debridement Measurements/Treatment WC - Nurse 2 - General Ulcer CM Notes Start: 07/01/20 09:11 Freq: Status: Active Protocol: Activity Type Activity Date Activity User E-Sign Co-Sign Detail Recorded Client Recorded Date Recorded By Document 07/01/20 09:32 MW [id number] 07/01/20 09:38 MW Document 07/08/20 10:20 MW [id number] 07/08/20 10:28 MW 07/01/20 07/08/20 09:32 10:20 Wound Center Nurse 2 #12 Medial Superior LLE -Time : 10:20 -Correct Patient Yes Yes -Correct Side, Site, Position Yes Yes -Correct Procedure Yes Yes -Procedure Performed Yes Yes -Type of Procedure Debridement Debridement -Clinical Debridement Subcutaneous Subcutaneous -Tissue Removed Subcutaneous Subcutaneous -Post Debridement (cm) - Length 4.0 4.4 -Post Debridement (cm) - Width 5.5 6.0 -Post Debridement (cm) - Depth 0.2 0.2 -Total Square (Post) (cm) 22.00 26.40 -Area of Debridement (cm) - Length 4.0 4.4 -Area of Debridement (cm) - Width 5.5 6.0 -Total Square (Area) (cm) 22.00 26.40 -Tunneling No No -Undermining/Tunneling No No -Circular Undermining No No -Wound/Ulcer Outcome Not Healed Not Healed -Ulcer Cleansing Rinsed/ Rinsed/ Irrigated with Irrigated with Saline Saline -Foul Odor after Cleansing No No -Bioengineered Tissue No No -Bleeding Controlled with Pressure Pressure -Offloading No No -Treatment Response Procedure Procedure Tolerated Well Tolerated Well -Debridement - Subq, 1st 20sq cm Yes Yes -Debridement, SubQ, ea addt'l 20sq cm 2 3 or part thereof #11 Medial Inferior LLE -Time : 10:21 -Correct Patient Yes Yes -Correct Side, Site, Position Yes Yes -Correct Procedure Yes Yes -Procedure Performed Yes Yes -Type of Procedure Debridement Debridement -Clinical Debridement Subcutaneous Subcutaneous -Tissue Removed Subcutaneous Subcutaneous -Post Debridement (cm) - Length 2.5 4.0 -Post Debridement (cm) - Width 5.5 6.0 -Post Debridement (cm) - Depth 0.2 0.2 -Total Square (Post) (cm) 13.75 24.00 -Area of Debridement (cm) - Length 2.5 4.0 -Area of Debridement (cm) - Width 5.5 6.0 -Total Square (Area) (cm) 13.75 24.00 -Tunneling No No -Undermining/Tunneling No No -Circular Undermining No No -Wound/Ulcer Outcome Not Healed Not Healed -Ulcer Cleansing Rinsed/ Rinsed/ Irrigated with Irrigated with Saline Saline -Foul Odor after Cleansing No No -Bioengineered Tissue No No -Bleeding Controlled with Pressure Pressure -Offloading No No -Type of Offloading Surgical Shoe -Debridement - Subq, 1st 20sq cm No No #10 Left Medial Ankle -Time 09:32 10:22 -Correct Patient Yes Yes -Correct Side, Site, Position Yes Yes -Correct Procedure Yes Yes -Procedure Performed Yes Yes -Type of Procedure Debridement Debridement -Clinical Debridement Subcutaneous Subcutaneous -Tissue Removed Subcutaneous Subcutaneous -Post Debridement (cm) - Length 4.0 4.8 -Post Debridement (cm) - Width 3.0 4.0 -Post Debridement (cm) - Depth 0.2 0.4 -Total Square (Post) (cm) 12.00 19.20 -Area of Debridement (cm) - Length 4.0 4.8 -Area of Debridement (cm) - Width 3.0 4.0 -Total Square (Area) (cm) 12.00 19.20 -Tunneling No No -Undermining/Tunneling No No -Circular Undermining No No -Wound/Ulcer Outcome Not Healed Not Healed -Ulcer Cleansing Rinsed/ Irrigated with Saline -Foul Odor after Cleansing No No -Bioengineered Tissue No No -Bleeding Controlled with Pressure Pressure -Offloading No No -Treatment Response Procedure Tolerated Well -Debridement - Subq, 1st 20sq cm No No Pain Scale: 0-10 Numeric Is Patient Pain Free? Yes Yes - Nurse 3 - General Ulcer D/C NN Start: 07/01/20 09:11 Freq: Status: Active Protocol: Activity Type Activity Date Activity User E-Sign Co-Sign Detail Recorded Client Recorded Date Recorded By Document 07/01/20 09:42 RB [email or web address] 07/01/20 09:44 RB 07/01/20 09:42 Wound Care Nurse 3 #12 Medial Superior LLE -Ulcer Cleansing Rinsed/ Irrigated with Saline -Other Dressing fibracol plus, kerramax -Primary Dressing Covered/Secured with Dry Gauze & Roll Gauze, Secured with Tape #11 Medial Inferior LLE -Other Dressing fibracol plus -Primary Dressing Covered/Secured with Dry Gauze & Roll Gauze, Secured with Tape #10 Left Medial Ankle -Other Dressing fibracol plus -Primary Dressing Covered/Secured with Dry Gauze & Roll Gauze, Secured with Tape Left -Stockings Yes Treatment Response Procedure Tolerated Well Pain Scale: 0-10 Numeric Is Patient Pain Free? Yes Teaching: Wound Center Skin Care -Person Taught Patient -Teaching Method Discussion, Demonstration -Response to teaching Verbalize understanding WC - Visit Discharge Discharge Condition Stable Ambulatory Status Ambulatory Transportation Private Auto Medication Reconcilliation completed & No provided to patient/care provider Clinical Summary of Care Provided Yes Wound debrided: medial superior leg ulcer Laterality: Left Type of Debridement: Excisional debridement Anesthesia Used: 5% Lidocaine Gel Depth: Down to and including healthy tissue, in the subcutaneous layer Percentage of wound debrided: 100 Instrument Used: 5mm curette Tissue Removed: Subcutaneous tissue and slough Severity: Fat Layer Exposed Amount of bleeding with debridement: Mild Bleeding Controlled with: Pressure Patient tolerated procedure well - Additional Wound Wound debrided: inferior leg ulcer Laterality: Left Type of Debridement: Excisional debridement Anesthesia Used: 5% Lidocaine Gel Depth: Down to and including healthy tissue, in the subcutaneous layer Percentage of wound debrided: 100 Instrument Used: 5mm curette Tissue Removed: Subcutaneous tissue and slough Severity: Fat Layer Exposed Amount of bleeding with debridement: Mild Bleeding Controlled with: Pressure Patient tolerated procedure: Patient tolerated procedure well - Additional Wound Wound debrided: medial ankle ulcer Laterality: Left Type of Debridement: Excisional debridement Anesthesia Used: 5% Lidocaine Gel Depth: in the subcutaneous layer Percentage of wound debrided: 100 Instrument Used: 5mm curette Tissue Removed: Subcutaneous tissue and slough Severity: Fat Layer Exposed Amount of bleeding with debridement: Mild Bleeding Controlled with: Pressure Patient tolerated procedure: Patient tolerated procedure well Assessment/Plan Active Problems Ulcer of left lower extremity with fat layer exposed (Chronic) PVD (peripheral vascular disease) (Chronic) Chronic venous insufficiency (Chronic) Edema, lower extremity (Chronic) Pain of left lower extremity (Chronic) Delayed wound healing (Chronic) Venous hypertension, chronic, with ulcer and inflammation (Chronic) Assessment: Chronic left leg ulcer. Venous insufficiency. Leg edema. Delayed ulcer healing. Plan: Today was a courtesy visit for Dr. Amaya. Debridement done as documented above, procedure was well tolerated. Wounds are measuring larger. Will stop the Fibrocol and start Aquacel-Ag to help with the drainage along with Keramax daily. Continue use of compression stockings, leg elevation and exercise. Increased protein intake , protein supplements, zinc and vitamin C also recommended. His questions were answered and he was advised to call with any further questions or concerns. Follow-up in [address] Amaya is not in the clinic. This note was generated with [employer] dictation software. It may contain incorrect words, spelling, and punctuation that were not noted in checking the note before signing. [id number]: [id number] Lakeisha subq tissue 20 sq cm/< Add On Codes: [id number] Lakeisha subq tissue add-on - x2
[2020-07-22 09:23] VITALS: BP 148/89; PULSE 74; RESP 18; TEMP 36.6; BMI 31.4
[2020-07-22 10:11] VITALS: BP 148/98; PULSE 88; RESP 18
--- NOTE | 2020-07-22 11:05 | PCM.WC.PN ---
(1) Ulcer of left lower extremity with fat layer exposed Status: Chronic Current Visit: Yes Code(s): L97.922 - Non-pressure chronic ulcer of unspecified part of left lower leg with fat layer exposed (2) Chronic venous insufficiency Status: Chronic Current Visit: Yes Code(s): I87.2 - Venous insufficiency (chronic) (peripheral) (3) Delayed wound healing Status: Chronic Current Visit: Yes Code(s): T14.8XXD - Other injury of unspecified body region, subsequent encounter (4) PVD (peripheral vascular disease) Status: Chronic Current Visit: Yes Code(s): I73.9 - Peripheral vascular disease, unspecified (5) Venous hypertension, chronic, with ulcer and inflammation Status: Chronic Current Visit: Yes Code(s): I87.339 - Chronic venous hypertension (idiopathic) with ulcer and inflammation of unspecified lower extremity Type of Wound Date of Service: 07/22/20 Chief Complaint: ulcers to the left lower leg History of Wound: This is a 54-year-old male presents to wound healing center with a long-standing history of chronic venous insufficiency, chronic venous hypertension, lower extremity edema, lower extremity pain, and chronic left lower extremity ulcer. The patient has previously undergone endovenous laser ablation of the left and right great saphenous vein, the small saphenous vein, the left accessory saphenous vein, and an incompetent left calf railroad baggage porter vein located 15 cm proximal to the left medial malleolus. He is currently wearing graduated compression stockings which are documented to be 20-30 mmHg compression and these are thigh high. He reports great compliance with use. He is also had previous arterial work-up with no intervention recommended by letter, his vascular surgeon. He denies taking nutritional supplementation. He saw dermatology and had a biopsy of the ulcer site. He also was previously treated by infectious disease for various contaminations and infections. He is not antibiotics at this time nor does he have any redness or odor coming from the wound. He denies fever, chill, nausea, vomiting, loss of appetite. Progress of Wound: No new concerns at this time. Stable ulcers. - Physical Exam Vital Signs Temp Pulse Resp BP 98 F 88 18 148/98 H 07/22/20 09:23 07/22/20 10:11 07/22/20 10:11 07/22/20 10:11 General: Alert, Oriented x3, Cooperative, No apparent distress HEENT: Atraumatic, Normocephalic Oral: Moist Mucosa Neck: Supple Lungs: Normal air movement Abdomen: Non Tender, Obese Extremities: Edema Skin: Ulcer/ Wound Wound Measurements and Assessment WC - Nurse 1 - General Ulcer Measurement Start: 07/01/20 09:11 Freq: Status: Active Protocol: Activity Type Activity Date Activity User E-Sign Co-Sign Detail Recorded Client Recorded Date Recorded By Document 07/22/20 09:23 RB [id number] 07/22/20 09:32 RB 07/22/20 09:23 Wound Center Nurse 1 [Ulcer Assessment] #12 Medial Superior LLE -Combined with other wound No -Current Size (cm) - Length 4.9 -Current Size (cm) - Width 5 -Current Size (cm) - Depth 0.2 -Total Square Cm 24.5 -Tunneling No -Undermining/Tunneling No -Circular Undermining No -Exudate Amt Medium -Exudate Type Serosanguineous -Wound Margin Flat & Intact -Granulation Amt Medium (34-66%) -Granulation Quality [place] -Slough/Fibrin Yes -Necrosis Amt Small (1-33%) -Necrotic Tissue Type Adherent Slough -Structure Exposed N/A -Texture (Ara-wound Skin Appearance) Assessed, Scarring -Moisture (Ara-wound Skin Appearance Assessed ) -Color (Ara-wound Skin Appearance) Assessed -Temperature (Ara-wound Skin No Abnormality Appearance) (Pt Warm) -Tenderness on Palpation (Ara-wound No Skin Appearance) -Ulcer Cleansing Wound Cleanser -Foul Odor after Cleansing No -Anesthetic Used 4% Lidocaine Solution #11 Medial Inferior LLE -Combined with other wound No -Current Size (cm) - Length 4 -Current Size (cm) - Width 5.7 -Current Size (cm) - Depth 0.3 -Total Square Cm 22.8 -Tunneling No -Undermining/Tunneling No -Circular Undermining No -Exudate Amt Medium -Exudate Type Serosanguineous -Wound Margin Flat & Intact -Granulation Amt Medium (34-66%) -Granulation Quality Red -Slough/Fibrin Yes -Necrosis Amt Small (1-33%) -Necrotic Tissue Type Adherent Slough -Structure Exposed N/A -Texture (Ara-wound Skin Appearance) Assessed, Scarring -Moisture (Ara-wound Skin Appearance Assessed ) -Color (Ara-wound Skin Appearance) Assessed -Temperature (Ara-wound Skin No Abnormality Appearance) (Pt Warm) -Tenderness on Palpation (Ara-wound No Skin Appearance) -Ulcer Cleansing Wound Cleanser -Foul Odor after Cleansing No -Anesthetic Used 4% Lidocaine Solution #10 Left Medial Ankle -Combined with other wound No -Current Size (cm) - Length 4.8 -Current Size (cm) - Width 3.7 -Current Size (cm) - Depth 0.3 -Total Square Cm 17.76 -Tunneling No -Undermining/Tunneling No -Circular Undermining No -Exudate Amt Medium -Exudate Type Serosanguineous -Wound Margin Flat & Intact -Granulation Amt Medium (34-66%) -Granulation Quality Red -Necrotic Tissue Type Adherent Slough -Structure Exposed N/A -Texture (Ara-wound Skin Appearance) Assessed, Scarring -Moisture (Ara-wound Skin Appearance Assessed ) -Color (Ara-wound Skin Appearance) Assessed -Temperature (Ara-wound Skin No Abnormality Appearance) (Pt Warm) -Tenderness on Palpation (Ara-wound No Skin Appearance) -Ulcer Cleansing Wound Cleanser -Foul Odor after Cleansing No -Anesthetic Used 4% Lidocaine Solution [Edema Assessment] -Lower Limb Edema Present Yes -Left Calf (cm) 36.7 -Left Ankle (cm) 24.3 WC - Nurse 2 - General Ulcer CM Notes Start: 07/01/20 09:11 Freq: Status: Active Protocol: Activity Type Activity Date Activity User E-Sign Co-Sign Detail Recorded Client Recorded Date Recorded By Document 07/22/20 09:57 MW [id number] 07/22/20 10:02 MW 07/22/20 09:57 Wound Center Nurse 2 [Procedure/Treatment] #12 [facility] LLE -Time 09:57 -Correct Patient Yes -Correct Side, Site, Position Yes -Correct Procedure Yes -Procedure Performed Yes -Type of Procedure Debridement -Clinical Debridement Subcutaneous -Tissue Removed Subcutaneous -Post Debridement (cm) - Length 4.0 -Post Debridement (cm) - Width 5.5 -Post Debridement (cm) - Depth 0.2 -Total Square (Post) (cm) 22.00 -Area of Debridement (cm) - Length 4.0 -Area of Debridement (cm) - Width 5.5 -Total Square (Area) (cm) 22.00 -Tunneling No -Undermining/Tunneling No -Circular Undermining No -Wound/Ulcer Outcome Not Healed -Ulcer Cleansing Rinsed/ Irrigated with Saline -Foul Odor after Cleansing No -Bioengineered Tissue No -Bleeding Controlled with Pressure -Offloading No -Treatment Response Procedure Tolerated Well -Debridement - Subq, 1st 20sq cm Yes -Debridement, SubQ, ea addt'l 20sq cm 2 or part thereof #11 Medial Inferior LLE -Time 09:58 -Correct Patient Yes -Correct Side, Site, Position Yes -Correct Procedure Yes -Procedure Performed Yes -Type of Procedure Debridement -Clinical Debridement Subcutaneous -Tissue Removed Subcutaneous -Post Debridement (cm) - Length 3.0 -Post Debridement (cm) - Width 6.0 -Post Debridement (cm) - Depth 0.2 -Total Square (Post) (cm) 18.00 -Area of Debridement (cm) - Length 3.0 -Area of Debridement (cm) - Width 6.0 -Total Square (Area) (cm) 18.00 -Tunneling No -Undermining/Tunneling No -Circular Undermining No -Wound/Ulcer Outcome Not Healed -Ulcer Cleansing Rinsed/ Irrigated with Saline -Foul Odor after Cleansing No -Bioengineered Tissue No -Bleeding Controlled with Pressure -Offloading No -Debridement - Subq, 1st 20sq cm No #10 Left Medial Ankle -Time 09:58 -Correct Patient Yes -Correct Side, Site, Position Yes -Correct Procedure Yes -Procedure Performed Yes -Type of Procedure Debridement -Clinical Debridement Subcutaneous -Tissue Removed Subcutaneous -Post Debridement (cm) - Length 4.3 -Post Debridement (cm) - Width 3.8 -Post Debridement (cm) - Depth 0.4 -Total Square (Post) (cm) 16.34 -Area of Debridement (cm) - Length 4.3 -Area of Debridement (cm) - Width 3.8 -Total Square (Area) (cm) 16.34 -Tunneling No -Undermining/Tunneling No -Circular Undermining No -Wound/Ulcer Outcome Not Healed -Ulcer Cleansing Rinsed/ Irrigated with Saline -Foul Odor after Cleansing No -Bioengineered Tissue No -Bleeding Controlled with Pressure -Offloading No -Debridement - Subq, 1st 20sq cm No [See Physician Procedure note for Specifics] Pain Scale: 0-10 Numeric [Pain] -Is Patient Pain Free? Yes - Nurse 3 - General Ulcer D/C NN Start: 07/01/20 09:11 Freq: Status: Active Protocol: Activity Type Activity Date Activity User E-Sign Co-Sign Detail Recorded Client Recorded Date Recorded By Document 07/22/20 10:11 RB [id number] 07/22/20 10:14 RB 07/22/20 10:11 Wound Care Nurse 3 [Wound Dressing] #12 Medial Superior LLE -Ulcer Cleansing Wound Cleanser -Primary Dressing Applied Aquacel AG 4x4 -Other Dressing kerramax -Primary Dressing Covered/Secured Dry Gauze, with Secured with Tape -Aquacel AG 4x4 1 #11 Medial Inferior LLE -Ulcer Cleansing Rinsed/ Irrigated with Saline -Other Dressing aquacel ag -Primary Dressing Covered/Secured Dry Gauze, with Secured with Tape #10 Left Medial Ankle -Other Dressing aquacel ag -Primary Dressing Covered/Secured Dry Gauze, with Secured with Tape [Compression Applied] Left -Stockings Yes Vital Signs [Pulse] -Pulse Rate (60-100 beats/min) 88 -Pulse Location Monitor [Respirations] -Respiratory Rate (12-18 breaths/min) 18 -Respiratory rate source Observation [Blood Pressure] -Blood Pressure (90/60-120/80 mm Hg) 148/98 H -Blood Pressure Mean (mm Hg) 114 -Source Monitor -Position Semi-Fowlers -Blood Pressure Location Left Arm Pain Scale: 0-10 Numeric [Pain] -Is Patient Pain Free? Yes - Visit Discharge [Visit Discharge Information] -Discharge Condition Stable -Ambulatory Status Ambulatory -Transportation Private Auto -Medication Reconcilliation completed No & provided to patient/care provider -Clinical Summary of Care Provided Yes Musculoskeletal: No Muscle Wasting Neurological: Cranial nerves II-XII grossly intact Psych/Mental Status: Normal Affect Debridement Note Post-Debridement Measurements/Treatment - Nurse 2 - General Ulcer CM Notes Start: 07/01/20 09:11 Freq: Status: Active Protocol: Activity Type Activity Date Activity User E-Sign Co-Sign Detail Recorded Client Recorded Date Recorded By Document 07/01/20 09:32 MW [id number] 07/01/20 09:38 MW Document 07/08/20 10:20 MW [id number] 07/08/20 10:28 MW Document 07/22/20 09:57 MW [id number] 07/22/20 10:02 MW 07/01/20 0907/22/20 09:32 10:20 09:57 Wound Center Nurse 2 #12 Medial Superior LLE -Time : 10:20 09:57 -Correct Patient Yes Yes Yes -Correct Side, Site, Position Yes Yes Yes -Correct Procedure Yes Yes Yes -Procedure Performed Yes Yes Yes -Type of Procedure Debridement Debridement Debridement -Clinical Debridement Subcutaneous Subcutaneous Subcutaneous -Tissue Removed Subcutaneous Subcutaneous Subcutaneous -Post Debridement (cm) - Length 4.0 4.4 4.0 -Post Debridement (cm) - Width 5.5 6.0 5.5 -Post Debridement (cm) - Depth 0.2 0.2 0.2 -Total Square (Post) (cm) 22.00 26.40 22.00 -Area of Debridement (cm) - Length 4.0 4.4 4.0 -Area of Debridement (cm) - Width 5.5 6.0 5.5 -Total Square (Area) (cm) 22.00 26.40 22.00 -Tunneling No No No -Undermining/Tunneling No No No -Circular Undermining No No No -Wound/Ulcer Outcome Not Healed Not Healed Not Healed -Ulcer Cleansing Rinsed/ Rinsed/ Rinsed/ Irrigated with Irrigated with Irrigated with Saline Saline Saline -Foul Odor after Cleansing No No No -Bioengineered Tissue No No No -Bleeding Controlled with Pressure Pressure Pressure -Offloading No No No -Treatment Response Procedure Procedure Procedure Tolerated Well Tolerated Well Tolerated Well -Debridement - Subq, 1st 20sq cm Yes Yes Yes -Debridement, SubQ, ea addt'l 20sq cm 2 3 2 or part thereof #11 Medial Inferior LLE -Time 10:21 09:58 -Correct Patient Yes Yes Yes -Correct Side, Site, Position Yes Yes Yes -Correct Procedure Yes Yes Yes -Procedure Performed Yes Yes Yes -Type of Procedure Debridement Debridement Debridement -Clinical Debridement Subcutaneous Subcutaneous Subcutaneous -Tissue Removed Subcutaneous Subcutaneous Subcutaneous -Post Debridement (cm) - Length 2.5 4.0 3.0 -Post Debridement (cm) - Width 5.5 6.0 6.0 -Post Debridement (cm) - Depth 0.2 0.2 0.2 -Total Square (Post) (cm) 13.75 24.00 18.00 -Area of Debridement (cm) - Length 2.5 4.0 3.0 -Area of Debridement (cm) - Width 5.5 6.0 6.0 -Total Square (Area) (cm) 13.75 24.00 18.00 -Tunneling No No No -Undermining/Tunneling No No No -Circular Undermining No No No -Wound/Ulcer Outcome Not Healed Not Healed Not Healed -Ulcer Cleansing Rinsed/ Rinsed/ Rinsed/ Irrigated with Irrigated with Irrigated with Saline Saline Saline -Foul Odor after Cleansing No No No -Bioengineered Tissue No No No -Bleeding Controlled with Pressure Pressure Pressure -Offloading No No No -Type of Offloading Surgical Shoe -Debridement - Subq, 1st 20sq cm No No No #10 Left Medial Ankle -Time 09:32 10:22 09:58 -Correct Patient Yes Yes Yes -Correct Side, Site, Position Yes Yes Yes -Correct Procedure Yes Yes Yes -Procedure Performed Yes Yes Yes -Type of Procedure Debridement Debridement Debridement -Clinical Debridement Subcutaneous Subcutaneous Subcutaneous -Tissue Removed Subcutaneous Subcutaneous Subcutaneous -Post Debridement (cm) - Length 4.0 4.8 4.3 -Post Debridement (cm) - Width 3.0 4.0 3.8 -Post Debridement (cm) - Depth 0.2 0.4 0.4 -Total Square (Post) (cm) 12.00 19.20 16.34 -Area of Debridement (cm) - Length 4.0 4.8 4.3 -Area of Debridement (cm) - Width 3.0 4.0 3.8 -Total Square (Area) (cm) 12.00 19.20 16.34 -Tunneling No No No -Undermining/Tunneling No No No -Circular Undermining No No No -Wound/Ulcer Outcome Not Healed Not Healed Not Healed -Ulcer Cleansing Rinsed/ Rinsed/ Irrigated with Irrigated with Saline Saline -Foul Odor after Cleansing No No No -Bioengineered Tissue No No No -Bleeding Controlled with Pressure Pressure Pressure -Offloading No No No -Treatment Response Procedure Tolerated Well -Debridement - Subq, 1st 20sq cm No No No Pain Scale: 0-10 Numeric Is Patient Pain Free? Yes Yes Yes WC - Nurse 3 - General Ulcer D/C NN Start: 07/01/20 09:11 Freq: Status: Active Protocol: Activity Type Activity Date Activity User E-Sign Co-Sign Detail Recorded Client Recorded Date Recorded By Document 07/01/20 09:42 RB [id number] 07/01/20 09:44 RB Document 07/22/20 10:11 RB [id number] 07/22/20 10:14 RB 07/01/20 07/22/20 09:42 10:11 Wound Care Nurse 3 #12 Medial Superior LLE -Ulcer Cleansing Rinsed/ Wound Cleanser Irrigated with Saline -Primary Dressing Applied Aquacel AG 4x4 -Other Dressing fibracol plus, kerramax kerramax -Primary Dressing Covered/Secured with Dry Gauze & Dry Gauze, Roll Gauze, Secured with Secured with Tape Tape -Aquacel AG 4x4 1 #11 Medial Inferior LLE -Ulcer Cleansing Rinsed/ Irrigated with Saline -Other Dressing fibracol plus aquacel ag -Primary Dressing Covered/Secured with Dry Gauze & Dry Gauze, Roll Gauze, Secured with Secured with Tape Tape #10 Left Medial Ankle -Other Dressing fibracol plus aquacel ag -Primary Dressing Covered/Secured with Dry Gauze & Dry Gauze, Roll Gauze, Secured with Secured with Tape Tape Left -Stockings Yes Yes Treatment Response Procedure Tolerated Well Pain Scale: 0-10 Numeric Is Patient Pain Free? Yes Yes Vital Signs Pulse Rate (60-100 beats/min) 88 Pulse Location Monitor Respiratory Rate (12-18 breaths/min) 18 Respiratory rate source Observation Blood Pressure (90/60-120/80 mm Hg) 148/98 H Blood Pressure Mean (mm Hg) 114 Source Monitor Position Semi-Fowlers Blood Pressure Location Left Arm Teaching: Wound Center Skin Care -Person Taught Patient -Teaching Method Discussion, Demonstration -Response to teaching Verbalize understanding WC - Visit Discharge Discharge Condition Stable Stable Ambulatory Status Ambulatory Ambulatory Transportation Private Auto Private Auto Medication Reconcilliation completed & No No provided to patient/care provider Clinical Summary of Care Provided Yes Yes Wound debrided: Left lower extremity (medial ankle) Type of Debridement: Excisional debridement Anesthesia Used: 4% Lidocaine Solution Depth: Down to and including healthy tissue, in the subcutaneous layer Percentage of wound debrided: 100 Instrument Used: 5mm curette Tissue Removed: Slough and devitalized tissue Severity: Fat Layer Exposed Amount of bleeding with debridement: Mild Bleeding Controlled with: Pressure Patient tolerated procedure well - Additional Wound Wound debrided: Left may (inferior) Type of Debridement: Excisional debridement Anesthesia Used: 4% Lidocaine Solution Depth: Down to and including healthy tissue, in the subcutaneous layer Percentage of wound debrided: 100 Instrument Used: 5mm curette Tissue Removed: Slough and devitalized tissue Severity: Fat Layer Exposed Amount of bleeding with debridement: Mild Bleeding Controlled with: Pressure Patient tolerated procedure: Patient tolerated procedure well - Additional Wound Wound debrided: Left may (superior) Type of Debridement: Excisional debridement Anesthesia Used: 4% Lidocaine Solution Depth: Down to and including healthy tissue Percentage of wound debrided: 100 Instrument Used: 5mm curette Tissue Removed: Slough and devitalized tissue Severity: Fat Layer Exposed Amount of bleeding with debridement: Mild Bleeding Controlled with: Pressure Patient tolerated procedure: Patient tolerated procedure well Assessment/Plan Active Problems Ulcer of left lower extremity with fat layer exposed (Chronic) PVD (peripheral vascular disease) (Chronic) Chronic venous insufficiency (Chronic) Edema, lower extremity (Chronic) Pain of left lower extremity (Chronic) Delayed wound healing (Chronic) Venous hypertension, chronic, with ulcer and inflammation (Chronic) Assessment: Chronic left leg ulcer. Venous insufficiency. Leg edema. Delayed ulcer healing. Plan: Debridement done as documented above, procedure was well tolerated. Continue Aquacel Ag and care max. Change daily to twice daily depending on drainage. Continue use of compression stockings, leg elevation and exercise. Increased protein intake , protein supplements, zinc and vitamin C also recommended. His questions were answered and he was advised to call with any further questions or concerns. Follow-up in 2 weeks per patient preference. This note was generated with [employer] dictation software. It may contain incorrect words, spelling, and punctuation that were not noted in checking the note before signing. [id number]: [id number] Lakeisha subq tissue 20 sq cm/< Add On Codes: [id number] Lakeisha subq tissue add-on - Additional square centimeter debrided, please refer to clinical note.
== END 2020-07-28 23:59 ==
LOC: WC 09:00
PROVIDERS: Visit Provider Internal Medicine
CPT/HCPCS: 11042; 11045

== ENCOUNTER 2020-08-19 09:00 | Outpatient (RCR) | payer BC, SELFPAY ==
[2020-07-29 00:37] VITALS: BP 148/98; PULSE 88; RESP 18; TEMP 36.6
[2020-08-05 09:27] VITALS: BP 163/83; PULSE 89; RESP 18; TEMP 36.6; BMI 31.4
[2020-08-05 10:04] VITALS: BP 158/82; PULSE 88; RESP 18
--- NOTE | 2020-08-05 11:03 | PCM.WC.PN ---
(1) Ulcer of left lower extremity with fat layer exposed Status: Chronic Current Visit: Yes Code(s): L97.922 - Non-pressure chronic ulcer of unspecified part of left lower leg with fat layer exposed (2) Chronic venous insufficiency Status: Chronic Current Visit: Yes (3) Delayed wound healing Status: Chronic Current Visit: Yes Code(s): T14.8XXD - Other injury of unspecified body region, subsequent encounter (4) Peripheral vascular occlusive disease Status: Chronic Current Visit: Yes Code(s): I73.9 - Peripheral vascular disease, unspecified Type of Wound Date of Service: 08/05/20 Chief Complaint: ulcers to the left lower leg History of Wound: This is a 54-year-old male presents to wound healing center with a long-standing history of chronic venous insufficiency, chronic venous hypertension, lower extremity edema, lower extremity pain, and chronic left lower extremity ulcer. 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 He is currently wearing graduated compression stockings which are documented to be 20-30 mmHg compression and these are thigh high. He reports great compliance with use. He is also had previous arterial work-up with no intervention recommended by letter, his vascular surgeon. He denies taking nutritional supplementation. He saw dermatology and had a biopsy of the ulcer site. He also was previously treated by infectious disease for various contaminations and infections. He is not antibiotics at this time nor does he have any redness or odor coming from the wound. He denies fever, chill, nausea, vomiting, loss of appetite. Progress of Wound: No new concerns at this time. Stable ulcers. - Physical Exam Vital Signs Temp Pulse Resp BP 97.8 F 88 18 158/82 H 08/05/20 09:27 08/05/20 10:04 08/05/20 10:04 08/05/20 10:04 General: Alert, Oriented x3, Cooperative, No apparent distress HEENT: Atraumatic, Normocephalic Oral: Moist Mucosa Neck: Supple Lungs: Normal air movement Extremities: No cyanosis, Edema Skin: Ulcer/ Wound Wound Measurements and Assessment WC - Nurse 1 - General Ulcer Measurement Start: 08/05/20 09:27 Freq: Status: Active Protocol: Activity Type Activity Date Activity User E-Sign Co-Sign Detail Recorded Client Recorded Date Recorded By Document 08/05/20 09:27 RB [id number] 08/05/20 09:32 RB 08/05/20 09:27 Wound Center Nurse 1 [Ulcer Assessment] #12 Medial Superior LLE -Combined with other wound No -Current Size (cm) - Length 4 -Current Size (cm) - Width 4.5 -Current Size (cm) - Depth 0.1 -Total Square Cm 18.0 -Tunneling No -Undermining/Tunneling No -Circular Undermining No -Exudate Amt Large -Exudate Type Serosanguineous -Wound Margin Flat & Intact -Granulation Amt Medium (34-66%) -Granulation Quality [place],Red -Slough/Fibrin Yes -Necrosis Amt Small (1-33%) -Necrotic Tissue Type Adherent Slough -Structure Exposed N/A -Texture (Ara-wound Skin Appearance) Assessed, Friable -Moisture (Ara-wound Skin Appearance Assessed ) -Color (Ara-wound Skin Appearance) Assessed -Temperature (Ara-wound Skin No Abnormality Appearance) (Pt Warm) -Tenderness on Palpation (Ara-wound No Skin Appearance) -Ulcer Cleansing Wound Cleanser -Foul Odor after Cleansing No -Anesthetic Used 4% Lidocaine Solution #11 Medial Inferior LLE -Combined with other wound No -Current Size (cm) - Length 4 -Current Size (cm) - Width 5.8 -Current Size (cm) - Depth 0.2 -Total Square Cm 23.2 -Tunneling No -Undermining/Tunneling No -Circular Undermining No -Exudate Amt Medium -Exudate Type Serosanguineous -Wound Margin Flat & Intact -Granulation Amt Medium (34-66%) -Granulation Quality [place] -Slough/Fibrin Yes -Necrosis Amt Small (1-33%) -Necrotic Tissue Type Adherent Slough -Structure Exposed N/A -Texture (Ara-wound Skin Appearance) Assessed, Excoriation -Moisture (Ara-wound Skin Appearance Assessed ) -Color (Ara-wound Skin Appearance) Assessed -Temperature (Ara-wound Skin No Abnormality Appearance) (Pt Warm) -Tenderness on Palpation (Ara-wound No Skin Appearance) -Ulcer Cleansing Wound Cleanser -Foul Odor after Cleansing No -Anesthetic Used 4% Lidocaine Solution #10 Left Medial Ankle -Combined with other wound No -Current Size (cm) - Length 3.8 -Current Size (cm) - Width 3.7 -Current Size (cm) - Depth 0.2 -Total Square Cm 14.06 -Tunneling No -Undermining/Tunneling No -Circular Undermining No -Exudate Amt Medium -Exudate Type Serosanguineous -Wound Margin Flat & Intact -Granulation Amt Medium (34-66%) -Granulation Quality [place] -Slough/Fibrin Yes -Necrosis Amt Small (1-33%) -Necrotic Tissue Type Adherent Slough -Structure Exposed N/A -Texture (Ara-wound Skin Appearance) Assessed, Excoriation -Moisture (Ara-wound Skin Appearance Assessed ) -Color (Ara-wound Skin Appearance) Assessed -Temperature (Ara-wound Skin No Abnormality Appearance) (Pt Warm) -Tenderness on Palpation (Ara-wound No Skin Appearance) -Ulcer Cleansing Wound Cleanser -Foul Odor after Cleansing No -Anesthetic Used 4% Lidocaine Solution [Edema Assessment] -Lower Limb Edema Present Yes -Left Calf (cm) 36 -Left Ankle (cm) 24.2 WC - Nurse 2 - General Ulcer CM Notes Start: 08/05/20 09:27 Freq: Status: Active Protocol: Activity Type Activity Date Activity User E-Sign Co-Sign Detail Recorded Client Recorded Date Recorded By Document 08/05/20 09:41 MW [id number] 08/05/20 09:49 MW 08/05/20 09:41 Wound Center Nurse 2 [Procedure/Treatment[facility] -Correct Patient Yes -Correct Side, Site, Position Yes -Correct Procedure Yes -Procedure Performed Yes -Type of Procedure Debridement -Clinical Debridement Subcutaneous -Tissue Removed Subcutaneous -Post Debridement (cm) - Length 3.8 -Post Debridement (cm) - Width 5.0 -Post Debridement (cm) - Depth 0.1 -Total Square (Post) (cm) 19.00 -Area of Debridement (cm) - Length 3.8 -Area of Debridement (cm) - Width 5.0 -Total Square (Area) (cm) 19.00 -Tunneling No -Undermining/Tunneling No -Circular Undermining No -Wound/Ulcer Outcome Not Healed -Ulcer Cleansing Rinsed/ Irrigated with Saline -Foul Odor after Cleansing No -Bioengineered Tissue No -Bleeding Controlled with Pressure -Offloading No -Treatment Response Procedure Tolerated Well -Debridement - Subq, 1st 20sq cm Yes -Debridement, SubQ, ea addt'l 20sq cm 2 or part thereof #11 Medial Inferior LLE -Time 09:41 -Correct Patient Yes -Correct Side, Site, Position Yes -Correct Procedure Yes -Procedure Performed Yes -Type of Procedure Debridement -Clinical Debridement Subcutaneous -Tissue Removed Subcutaneous -Post Debridement (cm) - Length 3.4 -Post Debridement (cm) - Width 6.1 -Post Debridement (cm) - Depth 0.2 -Total Square (Post) (cm) 20.74 -Area of Debridement (cm) - Length 3.4 -Area of Debridement (cm) - Width 6.1 -Total Square (Area) (cm) 20.74 -Tunneling No -Circular Undermining No -Wound/Ulcer Outcome Not Healed -Ulcer Cleansing Rinsed/ Irrigated with Saline -Foul Odor after Cleansing No -Bioengineered Tissue No -Bleeding Controlled with Pressure -Offloading No -Debridement - Subq, 1st 20sq cm No #10 Left Medial Ankle -Time 09:41 -Correct Patient Yes -Correct Side, Site, Position Yes -Correct Procedure Yes -Procedure Performed Yes -Type of Procedure Debridement -Clinical Debridement Subcutaneous -Tissue Removed Subcutaneous -Post Debridement (cm) - Length 4.0 -Post Debridement (cm) - Width 3.5 -Post Debridement (cm) - Depth 0.2 -Total Square (Post) (cm) 14.00 -Area of Debridement (cm) - Length 4.0 -Area of Debridement (cm) - Width 3.5 -Total Square (Area) (cm) 14.00 -Tunneling No -Undermining/Tunneling No -Circular Undermining No -Wound/Ulcer Outcome Not Healed -Ulcer Cleansing Rinsed/ Irrigated with Saline -Foul Odor after Cleansing No -Bioengineered Tissue No -Bleeding Controlled with Pressure -Offloading No -Treatment Response Procedure Tolerated Well -Debridement - Subq, 1st 20sq cm No [See Physician Procedure note for Specifics] Pain Scale: 0-10 Numeric [Pain] -Is Patient Pain Free? Yes WC - Nurse 3 - General Ulcer D/C NN Start: 08/05/20 09:27 Freq: Status: Active Protocol: Activity Type Activity Date Activity User E-Sign Co-Sign Detail Recorded Client Recorded Date Recorded By Document 08/05/20 10:04 RB [id number] 08/05/20 10:06 RB 08/05/20 10:04 Wound Care Nurse 3 [Wound Dressing] #12 Medial Superior LLE -Ulcer Cleansing Rinsed/ Irrigated with Saline -Primary Dressing Applied Aquacel AG 4x4 -Primary Dressing Covered/Secured Secured with with Tape -Other Covering kerrax and abd -Aquacel AG 4x4 1 #11 Medial Inferior LLE -Ulcer Cleansing Rinsed/ Irrigated with Saline -Other Dressing aquacel ag -Primary Dressing Covered/Secured Dry Gauze with #10 Left Medial Ankle -Ulcer Cleansing Rinsed/ Irrigated with Saline -Other Dressing aquacel ag -Primary Dressing Covered/Secured Dry Gauze with Vital Signs [Pulse] -Pulse Rate (60-100 beats/min) 88 -Pulse Location Monitor [Respirations] -Respiratory Rate (12-18 breaths/min) 18 -Respiratory rate source Observation [Blood Pressure] -Blood Pressure (90/60-120/80 mm Hg) 158/82 H -Blood Pressure Mean (mm Hg) 107 -Source Monitor -Position Sitting -Blood Pressure Location Left Arm Pain Scale: 0-10 Numeric [Pain] -Is Patient Pain Free? Yes WC - Visit Discharge [Visit Discharge Information] -Discharge Condition Stable -Ambulatory Status Ambulatory -Transportation Private Auto -Medication Reconcilliation completed No & provided to patient/care provider -Clinical Summary of Care Provided Yes Musculoskeletal: No Muscle Wasting Neurological: Cranial nerves II-XII grossly intact Psych/Mental Status: Normal Affect Debridement Note Post-Debridement Measurements/Treatment WC - Nurse 2 - General Ulcer CM Notes Start: 08/05/20 09:27 Freq: Status: Active Protocol: Activity Type Activity Date Activity User E-Sign Co-Sign Detail Recorded Client Recorded Date Recorded By Document 08/05/20 09:41 MW [id number] 08/05/20 09:49 MW 08/05/20 09:41 Wound Center Nurse 2 #12 Medial Superior LLE -Time 09:41 -Correct Patient Yes -Correct Side, Site, Position Yes -Correct Procedure Yes -Procedure Performed Yes -Type of Procedure Debridement -Clinical Debridement Subcutaneous -Tissue Removed Subcutaneous -Post Debridement (cm) - Length 3.8 -Post Debridement (cm) - Width 5.0 -Post Debridement (cm) - Depth 0.1 -Total Square (Post) (cm) 19.00 -Area of Debridement (cm) - Length 3.8 -Area of Debridement (cm) - Width 5.0 -Total Square (Area) (cm) 19.00 -Tunneling No -Undermining/Tunneling No -Circular Undermining No -Wound/Ulcer Outcome Not Healed -Ulcer Cleansing Rinsed/ Irrigated with Saline -Foul Odor after Cleansing No -Bioengineered Tissue No -Bleeding Controlled with Pressure -Offloading No -Treatment Response Procedure Tolerated Well -Debridement - Subq, 1st 20sq cm Yes -Debridement, SubQ, ea addt'l 20sq cm 2 or part thereof #11 Medial Inferior LLE -Time 09:41 -Correct Patient Yes -Correct Side, Site, Position Yes -Correct Procedure Yes -Procedure Performed Yes -Type of Procedure Debridement -Clinical Debridement Subcutaneous -Tissue Removed Subcutaneous -Post Debridement (cm) - Length 3.4 -Post Debridement (cm) - Width 6.1 -Post Debridement (cm) - Depth 0.2 -Total Square (Post) (cm) 20.74 -Area of Debridement (cm) - Length 3.4 -Area of Debridement (cm) - Width 6.1 -Total Square (Area) (cm) 20.74 -Tunneling No -Circular Undermining No -Wound/Ulcer Outcome Not Healed -Ulcer Cleansing Rinsed/ Irrigated with Saline -Foul Odor after Cleansing No -Bioengineered Tissue No -Bleeding Controlled with Pressure -Offloading No -Debridement - Subq, 1st 20sq cm No #10 Left Medial Ankle -Time 09:41 -Correct Patient Yes -Correct Side, Site, Position Yes -Correct Procedure Yes -Procedure Performed Yes -Type of Procedure Debridement -Clinical Debridement Subcutaneous -Tissue Removed Subcutaneous -Post Debridement (cm) - Length 4.0 -Post Debridement (cm) - Width 3.5 -Post Debridement (cm) - Depth 0.2 -Total Square (Post) (cm) 14.00 -Area of Debridement (cm) - Length 4.0 -Area of Debridement (cm) - Width 3.5 -Total Square (Area) (cm) 14.00 -Tunneling No -Undermining/Tunneling No -Circular Undermining No -Wound/Ulcer Outcome Not Healed -Ulcer Cleansing Rinsed/ Irrigated with Saline -Foul Odor after Cleansing No -Bioengineered Tissue No -Bleeding Controlled with Pressure -Offloading No -Treatment Response Procedure Tolerated Well -Debridement - Subq, 1st 20sq cm No Pain Scale: 0-10 Numeric Is Patient Pain Free? Yes - Nurse 3 - General Ulcer D/C NN Start: 08/05/20 09:27 Freq: Status: Active Protocol: Activity Type Activity Date Activity User E-Sign Co-Sign Detail Recorded Client Recorded Date Recorded By Document 08/05/20 10:04 [email or web address] [id number] 08/05/20 10:06 TRIPP 08/05/20 10:04 Wound Care Nurse 3 #12 Medial Superior LLE -Ulcer Cleansing Rinsed/ Irrigated with Saline -Primary Dressing Applied Aquacel AG 4x4 -Primary Dressing Covered/Secured with Secured with Tape -Other Covering kerrax and abd -Aquacel AG 4x4 1 #11 Medial Inferior LLE -Ulcer Cleansing Rinsed/ Irrigated with Saline -Other Dressing aquacel ag -Primary Dressing Covered/Secured with Dry Gauze #10 Left Medial Ankle -Ulcer Cleansing Rinsed/ Irrigated with Saline -Other Dressing aquacel ag -Primary Dressing Covered/Secured with Dry Gauze Vital Signs Pulse Rate (60-100 beats/min) 88 Pulse Location Monitor Respiratory Rate (12-18 breaths/min) 18 Respiratory rate source Observation Blood Pressure (90/60-120/80 mm Hg) 158/82 H Blood Pressure Mean (mm Hg) 107 Source Monitor Position Sitting Blood Pressure Location Left Arm Pain Scale: 0-10 Numeric Is Patient Pain Free? Yes WC - Visit Discharge Discharge Condition Stable Ambulatory Status Ambulatory Transportation Private Auto Medication Reconcilliation completed & No provided to patient/care provider Clinical Summary of Care Provided Yes Wound debrided: Left medial ankle Type of Debridement: Excisional debridement Anesthesia Used: 4% Lidocaine Solution Depth: Down to and including healthy tissue, in the subcutaneous layer Percentage of wound debrided: 100 Instrument Used: 7mm curette Tissue Removed: Slough and devitalized tissue Severity: Fat Layer Exposed Amount of bleeding with debridement: Mild Bleeding Controlled with: Pressure Patient tolerated procedure well - Additional Wound Wound debrided: Left lower extremity ( Inferior ) Type of Debridement: Excisional debridement Anesthesia Used: 4% Lidocaine Solution Depth: Down to and including healthy tissue, in the subcutaneous layer Percentage of wound debrided: 100 Instrument Used: 7mm curette Tissue Removed: Slough and devitalized tissue Severity: Fat Layer Exposed Amount of bleeding with debridement: Mild Bleeding Controlled with: Pressure Patient tolerated procedure: Patient tolerated procedure well - Additional Wound Wound debrided: Left lower extremity superior Type of Debridement: Excisional debridement Anesthesia Used: 4% Lidocaine Solution Depth: Down to and including healthy tissue, in the subcutaneous layer Percentage of wound debrided: 100 Instrument Used: 7mm curette Tissue Removed: Slough and devitalized tissue Severity: Fat Layer Exposed Amount of bleeding with debridement: Mild Bleeding Controlled with: Pressure Patient tolerated procedure: Patient tolerated procedure well Assessment/Plan Active Problems Ulcer of left lower extremity with fat layer exposed (Chronic) Delayed wound healing (Chronic) Chronic venous insufficiency (Chronic) Peripheral vascular occlusive disease (Chronic) Assessment: Chronic left leg ulcer. Venous insufficiency. Leg edema. Delayed ulcer healing. Plan: Debridement done as documented above, procedure was well tolerated. Continue Aquacel Ag and keramax. Change daily to twice daily depending on drainage. Cleanse daily. Continue use of compression stockings, leg elevation and exercise. Patient not open to 3 M wraps or other forms of compression. New prescription for compression staockings given. Increased protein intake , protein supplements, zinc and vitamin C also recommended. His questions were answered and he was advised to call with any further questions or concerns. Follow-up in 2 weeks per patient preference. This note was generated with [employer] dictation software. It may contain incorrect words, spelling, and punctuation that were not noted in checking the note before signing. [id number]: [id number] Lakeisha subq tissue 20 sq cm/< Add On Codes: 13092 Lakeisha subq tissue add-on - Additional square centimeter debrided, please refer to clinical note.
[2020-08-19 09:16] VITALS: BP 152/85; PULSE 80; RESP 16; TEMP 36.3; BMI 31.4
[2020-08-19 09:56] VITALS: BP 151/88; PULSE 83; RESP 16
--- NOTE | 2020-08-19 12:33 | PN.PCM_ITS ---
(1) Ulcer of left lower extremity with fat layer exposed Status: Chronic Code(s): L97.922 - Non-pressure chronic ulcer of unspecified part of left lower leg with fat layer exposed (2) Chronic venous insufficiency Status: Chronic (3) Delayed wound healing Status: Chronic Code(s): T14.8XXD - Other injury of unspecified body region, subsequent encounter (4) Peripheral vascular occlusive disease Status: Chronic Code(s): I73.9 - Peripheral vascular disease, unspecified Type of Wound Date of Service: 08/19/20 Chief Complaint: ulcers to the left lower leg History of Wound: This is a 54-year-old male presents to wound healing center with a long-standing history of chronic venous insufficiency, chronic venous hypertension, lower extremity edema, lower extremity pain, and chronic left lower extremity ulcer. The patient has previously undergone endovenous laser ablation of the left and right great saphenous vein, the small saphenous vein, the left accessory saphenous vein, and an incompetent left calf piccoloist vein located 15 cm proximal to the left medial malleolus. He is currently wearing graduated compression stockings which are documented to be 20-30 mmHg compression and these are thigh high. He reports great compliance with use. He is also had previous arterial work-up with no intervention recommended by letter, his vascular surgeon. He denies taking nutritional supplementation. He saw dermatology and had a biopsy of the ulcer site. He also was previously treated by infectious disease for various contaminations and infections. He is not antibiotics at this time nor does he have any redness or odor coming from the wound. He denies fever, chill, nausea, vomiting, loss of appetite. Progress of Wound: No new concerns at this time. Stable ulcers. - Physical Exam Vital Signs Temp Pulse Resp BP 97.3 F L 83 16 151/88 H 08/19/20 09:16 08/19/20 09:56 08/19/20 09:56 08/19/20 09:56 General: Alert, Oriented x3, Cooperative, No apparent distress HEENT: Atraumatic, Normocephalic Oral: Moist Mucosa Neck: Supple Lungs: Normal air movement Abdomen: Non Tender, Obese Extremities: No cyanosis, Edema Skin: Ulcer/ Wound Wound Measurements and Assessment WC - Nurse 1 - General Ulcer Measurement Start: 08/05/20 09:27 Freq: Status: Active Protocol: Activity Type Activity Date Activity User E-Sign Co-Sign Detail Recorded Client Recorded Date Recorded By Document 08/19/20 09:16 MS [id number] 08/19/20 09:28 MS 08/19/20 09:16 Wound Center Nurse 1 [Ulcer Assessment] #12 Medial Superior LLE -Current Size (cm) - Length 4.0 -Current Size (cm) - Width 6.5 -Current Size (cm) - Depth 0.1 -Total Square Cm 26.00 -Exudate Amt Medium -Exudate Type Serosanguineous -Wound Margin Distinct, Outline Attached -Granulation Amt Medium (34-66%) -Granulation Quality Red -Slough/Fibrin Yes -Texture (Ara-wound Skin Appearance) Assessed -Moisture (Ara-wound Skin Appearance Assessed ) -Color (Ara-wound Skin Appearance) Assessed -Temperature (Ara-wound Skin No Abnormality Appearance) (Pt Warm) -Ulcer Cleansing Rinsed/ Irrigated with Saline -Foul Odor after Cleansing No -Anesthetic Used 4% Lidocaine Solution #11 Medial Inferior LLE -Current Size (cm) - Length 3.8 -Current Size (cm) - Width 6.5 -Current Size (cm) - Depth 0.2 -Total Square Cm 24.70 -Exudate Amt Medium -Exudate Type Serosanguineous -Wound Margin Distinct, Outline Attached -Granulation Amt Medium (34-66%) -Granulation Quality Red -Slough/Fibrin Yes -Texture (Ara-wound Skin Appearance) Assessed -Moisture (Ara-wound Skin Appearance Assessed ) -Color (Ara-wound Skin Appearance) Assessed -Temperature (Ara-wound Skin No Abnormality Appearance) (Pt Warm) -Tenderness on Palpation (Ara-wound No Skin Appearance) -Ulcer Cleansing Rinsed/ Irrigated with Saline -Foul Odor after Cleansing No -Anesthetic Used 4% Lidocaine Solution #10 Left Medial Ankle -Current Size (cm) - Length 6 -Current Size (cm) - Width 4.5 -Current Size (cm) - Depth 0.3 -Total Square Cm 27.0 -Exudate Amt Small -Exudate Type Serosanguineous -Wound Margin Distinct, Outline Attached -Granulation Amt Medium (34-66%) -Granulation Quality Red -Slough/Fibrin Yes -Texture (Ara-wound Skin Appearance) Assessed -Moisture (Ara-wound Skin Appearance Assessed ) -Color (Ara-wound Skin Appearance) Assessed -Temperature (Ara-wound Skin No Abnormality Appearance) (Pt Warm) -Tenderness on Palpation (Ara-wound No Skin Appearance) -Ulcer Cleansing Rinsed/ Irrigated with Saline -Foul Odor after Cleansing No -Anesthetic Used 4% Lidocaine Solution WC - Nurse 2 - General Ulcer CM Notes Start: 08/05/20 09:27 Freq: Status: Active Protocol: Activity Type Activity Date Activity User E-Sign Co-Sign Detail Recorded Client Recorded Date Recorded By Document 08/19/20 09:43 MW [id number] 08/19/20 09:49 MW 08/19/20 09:43 Wound Center Nurse 2 [Procedure/Treatment] #12 Medial Superior LLE -Time 09:43 -Correct Patient Yes -Correct Side, Site, Position Yes -Correct Procedure Yes -Procedure Performed Yes -Type of Procedure Debridement -Clinical Debridement Subcutaneous -Tissue Removed Subcutaneous -Post Debridement (cm) - Length 3.8 -Post Debridement (cm) - Width 5.5 -Post Debridement (cm) - Depth 0.1 -Total Square (Post) (cm) 20.90 -Area of Debridement (cm) - Length 3.8 -Area of Debridement (cm) - Width 5.5 -Total Square (Area) (cm) 20.90 -Tunneling No -Undermining/Tunneling No -Circular Undermining No -Wound/Ulcer Outcome Not Healed -Ulcer Cleansing Rinsed/ Irrigated with Saline -Foul Odor after Cleansing No -Bioengineered Tissue No -Bleeding Controlled with Pressure -Offloading No -Treatment Response Procedure Tolerated Well -Debridement - Subq, 1st 20sq cm Yes -Debridement, SubQ, ea addt'l 20sq cm 2 or part thereof #11 Medial Inferior LLE -Time 09:44 -Correct Patient Yes -Correct Side, Site, Position Yes -Correct Procedure Yes -Procedure Performed Yes -Type of Procedure Debridement -Clinical Debridement Subcutaneous -Tissue Removed Subcutaneous -Post Debridement (cm) - Length 3.3 -Post Debridement (cm) - Width 6.0 -Post Debridement (cm) - Depth 0.2 -Total Square (Post) (cm) 19.80 -Area of Debridement (cm) - Length 3.3 -Area of Debridement (cm) - Width 6.0 -Total Square (Area) (cm) 19.80 -Tunneling No -Undermining/Tunneling No -Circular Undermining No -Wound/Ulcer Outcome Not Healed -Ulcer Cleansing Rinsed/ Irrigated with Saline -Foul Odor after Cleansing No -Bioengineered Tissue No -Bleeding Controlled with Pressure -Offloading No -Treatment Response Procedure Tolerated Well -Debridement - Subq, 1st 20sq cm No #10 Left Medial Ankle -Time 09:44 -Correct Patient Yes -Correct Side, Site, Position Yes -Correct Procedure Yes -Procedure Performed Yes -Type of Procedure Debridement -Clinical Debridement Subcutaneous -Tissue Removed Subcutaneous -Post Debridement (cm) - Length 4.0 -Post Debridement (cm) - Width 3.5 -Post Debridement (cm) - Depth 0.2 -Total Square (Post) (cm) 14.00 -Area of Debridement (cm) - Length 4.0 -Area of Debridement (cm) - Width 3.5 -Total Square (Area) (cm) 14.00 -Tunneling No -Undermining/Tunneling No -Circular Undermining No -Wound/Ulcer Outcome Not Healed -Ulcer Cleansing Not Cleansed -Foul Odor after Cleansing No -Bioengineered Tissue No -Bleeding Controlled with Pressure -Offloading No -Treatment Response Procedure Tolerated Well -Debridement - Subq, 1st 20sq cm No [See Physician Procedure note for Specifics] Pain Scale: 0-10 Numeric [Pain] -Is Patient Pain Free? Yes WC - Nurse 3 - General Ulcer D/C NN Start: 08/05/20 09:27 Freq: Status: Active Protocol: Activity Type Activity Date Activity User E-Sign Co-Sign Detail Recorded Client Recorded Date Recorded By Document 08/19/20 09:56 [facility] [id number] 08/19/20 09:57 [facility] 08/19/20 09:56 Wound Care Nurse 3 [Wound Dressing] #12 Medial Superior LLE -Ulcer Cleansing Rinsed/ Irrigated with Saline -Foul Odor after Cleansing No -Primary Dressing Applied Aquacel AG 4x4 -Primary Dressing Covered/Secured Secured with with Tape,Other -Other Covering kerramax -Aquacel AG 4x4 1 #11 Medial Inferior LLE -Ulcer Cleansing Rinsed/ Irrigated with Saline -Foul Odor after Cleansing No -Primary Dressing Applied Aquacel AG 4x4 -Primary Dressing Covered/Secured Dry Gauze & with Roll Gauze, Secured with Tape,Other -Other Covering kerramax -Aquacel AG 4x4 0 #10 Left Medial Ankle -Ulcer Cleansing Rinsed/ Irrigated with Saline -Foul Odor after Cleansing No -Primary Dressing Applied Aquacel AG 4x4 -Primary Dressing Covered/Secured Dry Gauze & with Roll Gauze, Secured with Tape,Other -Other Covering abd -Aquacel AG 4x4 0 [Compression Applied] Left -Other pt will apply own compression stocking at home Vital Signs [Pulse] -Pulse Rate (60-100 beats/min) 83 -Pulse Location Monitor [Respirations] -Respiratory Rate (12-18 breaths/min) 16 -Respiratory rate source Observation -Oxygen Delivery Method Room Air [Blood Pressure] -Blood Pressure (90/60-120/80 mm Hg) 151/88 H -Blood Pressure Mean (mm Hg) 109 -Source Monitor -Position Sitting -Blood Pressure Location Left Arm Pain Scale: 0-10 Numeric [Pain] -Is Patient Pain Free? Yes WC - Visit Discharge [Visit Discharge Information] -Discharge Condition Stable -Ambulatory Status Ambulatory -Transportation Private Auto Musculoskeletal: No Muscle Wasting Neurological: Cranial nerves II-XII grossly intact Psych/Mental Status: Normal Affect Debridement Note Post-Debridement Measurements/Treatment WC - Nurse 2 - General Ulcer CM Notes Start: 08/05/20 09:27 Freq: Status: Active Protocol: Activity Type Activity Date Activity User E-Sign Co-Sign Detail Recorded Client Recorded Date Recorded By Document 08/05/20 09:41 MW [id number] 08/05/20 09:49 MW Document 08/19/20 09:43 MW [id number] 08/19/20 09:49 MW 08/05/20 08/19/20 09:41 09:43 Wound Center Nurse 2 #12 Medial Superior LLE -Time 09:41 09:43 -Correct Patient Yes Yes -Correct Side, Site, Position Yes Yes -Correct Procedure Yes Yes -Procedure Performed Yes Yes -Type of Procedure Debridement Debridement -Clinical Debridement Subcutaneous Subcutaneous -Tissue Removed Subcutaneous Subcutaneous -Post Debridement (cm) - Length 3.8 3.8 -Post Debridement (cm) - Width 5.0 5.5 -Post Debridement (cm) - Depth 0.1 0.1 -Total Square (Post) (cm) 19.00 20.90 -Area of Debridement (cm) - Length 3.8 3.8 -Area of Debridement (cm) - Width 5.0 5.5 -Total Square (Area) (cm) 19.00 20.90 -Tunneling No No -Undermining/Tunneling No No -Circular Undermining No No -Wound/Ulcer Outcome Not Healed Not Healed -Ulcer Cleansing Rinsed/ Rinsed/ Irrigated with Irrigated with Saline Saline -Foul Odor after Cleansing No No -Bioengineered Tissue No No -Bleeding Controlled with Pressure Pressure -Offloading No No -Treatment Response Procedure Procedure Tolerated Well Tolerated Well -Debridement - Subq, 1st 20sq cm Yes Yes -Debridement, SubQ, ea addt'l 20sq cm 2 2 or part thereof #11 Medial Inferior LLE -Time 09:41 09:44 -Correct Patient Yes Yes -Correct Side, Site, Position Yes Yes -Correct Procedure Yes Yes -Procedure Performed Yes Yes -Type of Procedure Debridement Debridement -Clinical Debridement Subcutaneous Subcutaneous -Tissue Removed Subcutaneous Subcutaneous -Post Debridement (cm) - Length 3.4 3.3 -Post Debridement (cm) - Width 6.1 6.0 -Post Debridement (cm) - Depth 0.2 0.2 -Total Square (Post) (cm) 20.74 19.80 -Area of Debridement (cm) - Length 3.4 3.3 -Area of Debridement (cm) - Width 6.1 6.0 -Total Square (Area) (cm) 20.74 19.80 -Tunneling No No -Undermining/Tunneling No -Circular Undermining No No -Wound/Ulcer Outcome Not Healed Not Healed -Ulcer Cleansing Rinsed/ Rinsed/ Irrigated with Irrigated with Saline Saline -Foul Odor after Cleansing No No -Bioengineered Tissue No No -Bleeding Controlled with Pressure Pressure -Offloading No No -Treatment Response Procedure Tolerated Well -Debridement - Subq, 1st 20sq cm No No #10 Left Medial Ankle -Time 09:41 09:44 -Correct Patient Yes Yes -Correct Side, Site, Position Yes Yes -Correct Procedure Yes Yes -Procedure Performed Yes Yes -Type of Procedure Debridement Debridement -Clinical Debridement Subcutaneous Subcutaneous -Tissue Removed Subcutaneous Subcutaneous -Post Debridement (cm) - Length 4.0 4.0 -Post Debridement (cm) - Width 3.5 3.5 -Post Debridement (cm) - Depth 0.2 0.2 -Total Square (Post) (cm) 14.00 14.00 -Area of Debridement (cm) - Length 4.0 4.0 -Area of Debridement (cm) - Width 3.5 3.5 -Total Square (Area) (cm) 14.00 14.00 -Tunneling No No -Undermining/Tunneling No No -Circular Undermining No No -Wound/Ulcer Outcome Not Healed Not Healed -Ulcer Cleansing Rinsed/ Not Cleansed Irrigated with Saline -Foul Odor after Cleansing No No -Bioengineered Tissue No No -Bleeding Controlled with Pressure Pressure -Offloading No No -Treatment Response Procedure Procedure Tolerated Well Tolerated Well -Debridement - Subq, 1st 20sq cm No No Pain Scale: 0-10 Numeric Is Patient Pain Free? Yes Yes WC - Nurse 3 - General Ulcer D/C NN Start: 08/05/20 09:27 Freq: Status: Active Protocol: Activity Type Activity Date Activity User E-Sign Co-Sign Detail Recorded Client Recorded Date Recorded By Document 08/05/20 10:04 RB [id number] 08/05/20 10:06 RB Document 08/19/20 09:56 [facility] [id number] 08/19/20 09:57 [facility] 08/05/20 08/19/20 10:04 09:56 Wound Care Nurse 3 #12 Medial Superior LLE -Ulcer Cleansing Rinsed/ Rinsed/ Irrigated with Irrigated with Saline Saline -Foul Odor after Cleansing No -Primary Dressing Applied Aquacel AG 4x4 Aquacel AG 4x4 -Primary Dressing Covered/Secured with Secured with Secured with Tape Tape,Other -Other Covering kerrax and abd kerramax -Aquacel AG 4x4 1 1 #11 Medial Inferior LLE -Ulcer Cleansing Rinsed/ Rinsed/ Irrigated with Irrigated with Saline Saline -Foul Odor after Cleansing No -Primary Dressing Applied Aquacel AG 4x4 -Other Dressing aquacel ag -Primary Dressing Covered/Secured with Dry Gauze Dry Gauze & Roll Gauze, Secured with Tape,Other -Other Covering kerramax -Aquacel AG 4x4 0 #10 Left Medial Ankle -Ulcer Cleansing Rinsed/ Rinsed/ Irrigated with Irrigated with Saline Saline -Foul Odor after Cleansing No -Primary Dressing Applied Aquacel AG 4x4 -Other Dressing aquacel ag -Primary Dressing Covered/Secured with Dry Gauze Dry Gauze & Roll Gauze, Secured with Tape,Other -Other Covering abd -Aquacel AG 4x4 0 Left -Other pt will apply own compression stocking at home Vital Signs Pulse Rate (60-100 beats/min) 88 83 Pulse Location Monitor Monitor Respiratory Rate (12-18 breaths/min) 18 16 Respiratory rate source Observation Observation Oxygen Delivery Method Room Air Blood Pressure (90/60-120/80 mm Hg) 158/82 H 151/88 H Blood Pressure Mean (mm Hg) 107 109 Source Monitor Monitor Position Sitting Sitting Blood Pressure Location Left Arm Left Arm Pain Scale: 0-10 Numeric Is Patient Pain Free? Yes Yes WC - Visit Discharge Discharge Condition Stable Stable Ambulatory Status Ambulatory Ambulatory Transportation Private Auto Private Auto Medication Reconcilliation completed & No provided to patient/care provider Clinical Summary of Care Provided Yes Wound debrided: Left medial ankle Type of Debridement: Excisional debridement Anesthesia Used: 4% Lidocaine Solution Depth: Down to and including healthy tissue, in the subcutaneous layer Percentage of wound debrided: 100 Instrument Used: 5mm curette Tissue Removed: Slough and devitalized tissue Severity: Fat Layer Exposed Amount of bleeding with debridement: Mild Bleeding Controlled with: Pressure Patient tolerated procedure well - Additional Wound Wound debrided: Left Lower extremity ( Inferior ) Type of Debridement: Excisional debridement Anesthesia Used: 4% Lidocaine Solution Depth: Down to and including healthy tissue, in the subcutaneous layer Percentage of wound debrided: 100 Instrument Used: 5mm curette Tissue Removed: SLough and devitalized tissue Severity: Fat Layer Exposed Amount of bleeding with debridement: Mild Bleeding Controlled with: Pressure Patient tolerated procedure: Patient tolerated procedure well - Additional Wound Wound debrided: Left Leg ( Superior ) Type of Debridement: Excisional debridement Anesthesia Used: 4% Lidocaine Solution Depth: Down to and including healthy tissue, in the subcutaneous layer Percentage of wound debrided: 100 Instrument Used: 5mm curette Tissue Removed: Slough and devitalized tissue Severity: Fat Layer Exposed Amount of bleeding with debridement: Mild Bleeding Controlled with: Pressure Patient tolerated procedure: Patient tolerated procedure well Assessment/Plan Assessment: Chronic left leg ulcer. Venous insufficiency. Leg edema. Delayed ulcer healing. Plan: Debridement done as documented above, procedure was well tolerated. Continue Aquacel Ag and keramax. Change daily to twice daily depending on drainage. Cleanse daily. Continue use of compression stockings, leg elevation and exercise. Patient not open to 3 M wraps or other forms of compression. New prescription for compression staockings given. Increased protein intake , protein supplements, zinc and vitamin C also recommended. His questions were answered and he was advised to call with any further questions or concerns. Follow-up in 2 weeks per patient preference. This note was generated with [employer] dictation software. It may contain incorrect words, spelling, and punctuation that were not noted in checking the note before signing. [id number]: [id number] Lakeisha subq tissue 20 sq cm/< Add On Codes: [id number] Lakeisha subq tissue add-on - Additional square centimeter debrided, please refer to clinical note.
== END 2020-08-28 23:59 ==
LOC: WC 09:00
PROVIDERS: Visit Provider Internal Medicine
DX: I87.312 Chronic venous hypertension (idiopathic) with ulcer of left lower extremity (principal); I73.9 Peripheral vascular disease, unspecified; I87.2 Venous insufficiency (chronic) (peripheral); R60.0 Localized edema; M79.606 Pain in leg, unspecified; L97.322 Non-pressure chronic ulcer of left ankle with fat layer exposed; L97.822 Non-pressure chronic ulcer of other part of left lower leg with fat layer exposed
CPT/HCPCS: 11042; 11045

== ENCOUNTER 2020-09-16 09:00 | Outpatient (RCR) | payer BC, SELFPAY ==
[2020-08-29 00:23] VITALS: BP 151/88; PULSE 83; RESP 16; TEMP 36.3
[2020-09-02 08:59] VITALS: RESP 18; TEMP 36.3; BMI 31.4
--- NOTE | 2020-09-02 12:24 | PN.PCM_ITS ---
(1) Ulcer of left lower extremity with fat layer exposed Status: Chronic Code(s): L97.922 - Non-pressure chronic ulcer of unspecified part of left lower leg with fat layer exposed (2) Chronic venous insufficiency Status: Chronic (3) Delayed wound healing Status: Chronic Code(s): T14.8XXD - Other injury of unspecified body region, subsequent encounter Type of Wound Date of Service: 09/02/20 Chief Complaint: ulcers to the left lower leg History of Wound: This is a 54-year-old male presents to wound healing center w ith a long-standing history of chronic venous insufficiency, chronic venous hypertension, lower extremity edema, lower extremity pain, and chronic left lower extremity ulcer. The patient has previously undergone endovenous laser ablation of the left and right great saphenous vein, the small saphenous vein, the left accessory saphenous vein, and an incompetent left calf blasting helper vein located 15 cm proximal to the left medial malleolus. He is currently wearing graduated compression stockings which are documented to be 20-30 mmHg compression and these are thigh high. He reports great compliance with use. He is also had previous arterial work-up with no intervention recommended by letter, his vascular surgeon. He denies taking nutritional supplementation. He saw dermatology and had a biopsy of the ulcer site. He also was previously treated by infectious disease for various contaminations and infections. He is not antibiotics at this time nor does he have any redness or odor coming from the wound. He denies fever, chill, nausea, vomiting, loss of appetite. Progress of Wound: New left foot ulcer. Patient denies any history of trauma. Also reports increased left lower extremity pain and redness. - Physical Exam Vital Signs Temp Pulse Resp BP 97.4 F L 83 18 151/88 H 09/02/20 08:59 08/29/20 00:23 09/02/20 08:59 08/29/20 00:23 General: Alert, Oriented x3, Cooperative, No apparent distress HEENT: Atraumatic, Normocephalic Oral: Moist Mucosa Neck: Supple Lungs: Normal air movement Extremities: No cyanosis, Edema Skin: Ulcer/ Wound Wound Measurements and Assessment WC - Nurse 1 - General Ulcer Measurement Start: 09/02/20 08:59 Freq: Status: Active Protocol: Activity Type Activity Date Activity User E-Sign Co-Sign Detail Recorded Client Recorded Date Recorded By Document 09/02/20 08:59 MS [id number] 09/02/20 09:16 MS 09/02/20 08:59 Wound Center Nurse 1 [Ulcer Assessment] #14 LEFT DORSAL FOOT -Current Size (cm) - Length 2.7 -Current Size (cm) - Width 2 -Current Size (cm) - Depth 0.1 -Total Square Cm 5.4 -Date of Last Picture (Recall this 09/02/20 field) -Photo Taken Yes -Exudate Amt Small -Exudate Type Serosanguineous -Wound Margin Distinct, Outline Attached -Granulation Amt Medium (34-66%) -Slough/Fibrin Yes -Necrosis Amt Small (1-33%) -Necrotic Tissue Type Adherent Slough -Texture (Ara-wound Skin Appearance) Assessed -Moisture (Ara-wound Skin Appearance Assessed ) -Color (Ara-wound Skin Appearance) Assessed -Temperature (Ara-wound Skin No Abnormality Appearance) (Pt Warm) -Tenderness on Palpation (Ara-wound No Skin Appearance) -Ulcer Cleansing SOAP AND WATER -Foul Odor after Cleansing No -Anesthetic Used 5% Lidocaine Gel #12 Medial Superior LLE -Current Size (cm) - Length 2 -Current Size (cm) - Width 5.2 -Current Size (cm) - Depth 0.1 -Total Square Cm 10.4 -Epithelialization Medium 34-66% -Exudate Amt Medium -Exudate Type Serosanguineous -Wound Margin Distinct, Outline Attached -Granulation Amt Medium (34-66%) -Slough/Fibrin Yes -Necrosis Amt Medium (34-66%) -Necrotic Tissue Type Adherent Slough -Texture (Ara-wound Skin Appearance) Assessed -Moisture (Ara-wound Skin Appearance Assessed ) -Color (Ara-wound Skin Appearance) Assessed -Temperature (Ara-wound Skin No Abnormality Appearance) (Pt Warm) -Ulcer Cleansing Rinsed/ Irrigated with Saline -Foul Odor after Cleansing No -Anesthetic Used 5% Lidocaine Gel #11 Medial Inferior LLE -Current Size (cm) - Length 2.5 -Current Size (cm) - Width 6 -Current Size (cm) - Depth 0.1 -Total Square Cm 15.0 -Epithelialization Medium 34-66% -Exudate Amt Medium -Exudate Type Serosanguineous -Wound Margin Distinct, Outline Attached -Granulation Amt Medium (34-66%) -Granulation Quality Red -Slough/Fibrin Yes -Necrosis Amt Medium (34-66%) -Necrotic Tissue Type Adherent Slough -Texture (Ara-wound Skin Appearance) Assessed -Moisture (Ara-wound Skin Appearance Assessed ) -Color (Ara-wound Skin Appearance) Assessed -Temperature (Ara-wound Skin No Abnormality Appearance) (Pt Warm) -Tenderness on Palpation (Ara-wound No Skin Appearance) -Ulcer Cleansing SOAP AND WATER -Foul Odor after Cleansing No -Anesthetic Used 5% Lidocaine Gel #10 Left Medial Ankle -Current Size (cm) - Length 5.6 -Current Size (cm) - Width 3.5 -Current Size (cm) - Depth 0.1 -Total Square Cm 19.60 -Epithelialization Medium 34-66% -Exudate Amt Medium -Exudate Type Serosanguineous -Wound Margin Distinct, Outline Attached -Granulation Amt Medium (34-66%) -Granulation Quality Red -Slough/Fibrin Yes -Necrosis Amt Medium (34-66%) -Necrotic Tissue Type Adherent Slough -Texture (Ara-wound Skin Appearance) Assessed -Moisture (Ara-wound Skin Appearance Assessed ) -Color (Ara-wound Skin Appearance) Assessed -Temperature (Ara-wound Skin No Abnormality Appearance) (Pt Warm) -Tenderness on Palpation (Ara-wound No Skin Appearance) -Ulcer Cleansing SOPA AND WATER -Foul Odor after Cleansing No -Anesthetic Used 5% Lidocaine Gel WC - Nurse 2 - General Ulcer CM Notes Start: 09/02/20 08:59 Freq: Status: Active Protocol: Activity Type Activity Date Activity User E-Sign Co-Sign Detail Recorded Client Recorded Date Recorded By Document 09/02/20 09:27 MW [id number] 09/02/20 09:42 MW 09/02/20 09:27 Wound Center Nurse 2 [Procedure/Treatment] #14 LEFT DORSAL FOOT -Time 09:29 -Correct Patient Yes -Correct Side, Site, Position Yes -Correct Procedure Yes -Procedure Performed Yes -Type of Procedure Debridement -Clinical Debridement Subcutaneous -Tissue Removed Subcutaneous -Post Debridement (cm) - Length 3.0 -Post Debridement (cm) - Width 2.0 -Post Debridement (cm) - Depth 0.1 -Total Square (Post) (cm) 6.00 -Area of Debridement (cm) - Length 3.0 -Area of Debridement (cm) - Width 2.0 -Total Square (Area) (cm) 6.00 -Tunneling No -Undermining/Tunneling No -Circular Undermining No -Wound/Ulcer Outcome Not Healed -Ulcer Cleansing Rinsed/ Irrigated with Saline -Foul Odor after Cleansing No -Bioengineered Tissue No -Bleeding Controlled with Pressure -Offloading No -Treatment Response Procedure Tolerated Well -Debridement - Subq, 1st 20sq cm Yes -Debridement, SubQ, ea addt'l 20sq cm 2 or part thereof #12 Medial Superior LLE -Time 09:29 -Correct Patient Yes -Correct Side, Site, Position Yes -Correct Procedure Yes -Procedure Performed Yes -Type of Procedure Debridement -Clinical Debridement Subcutaneous -Tissue Removed Subcutaneous -Post Debridement (cm) - Length 3.0 -Post Debridement (cm) - Width 5.0 -Post Debridement (cm) - Depth 0.1 -Total Square (Post) (cm) 15.00 -Area of Debridement (cm) - Length 3.0 -Area of Debridement (cm) - Width 5.0 -Total Square (Area) (cm) 15.00 -Tunneling No -Undermining/Tunneling No -Circular Undermining No -Wound/Ulcer Outcome Not Healed -Ulcer Cleansing Rinsed/ Irrigated with Saline -Foul Odor after Cleansing No -Bioengineered Tissue No -Bleeding Controlled with Pressure -Offloading No -Treatment Response Procedure Tolerated Well -Debridement - Subq, 1st 20sq cm No #11 Medial Inferior LLE -Time 09:29 -Correct Patient Yes -Correct Side, Site, Position Yes -Correct Procedure Yes -Procedure Performed Yes -Type of Procedure Debridement -Clinical Debridement Subcutaneous -Tissue Removed Subcutaneous -Post Debridement (cm) - Length 3.5 -Post Debridement (cm) - Width 6.3 -Post Debridement (cm) - Depth 0.1 -Total Square (Post) (cm) 22.05 -Area of Debridement (cm) - Length 3.5 -Area of Debridement (cm) - Width 6.3 -Total Square (Area) (cm) 22.05 -Tunneling No -Undermining/Tunneling No -Circular Undermining No -Wound/Ulcer Outcome Not Healed -Ulcer Cleansing Rinsed/ Irrigated with Saline -Foul Odor after Cleansing No -Bioengineered Tissue No -Bleeding Controlled with Pressure -Offloading No -Treatment Response Procedure Tolerated Well -Debridement - Subq, 1st 20sq cm No #10 Left Medial Ankle -Time 09:30 -Correct Patient Yes -Correct Side, Site, Position Yes -Correct Procedure Yes -Procedure Performed Yes -Type of Procedure Debridement -Clinical Debridement Subcutaneous -Tissue Removed Subcutaneous -Post Debridement (cm) - Length 4.0 -Post Debridement (cm) - Width 3.0 -Post Debridement (cm) - Depth 0.3 -Total Square (Post) (cm) 12.00 -Area of Debridement (cm) - Length 4.0 -Area of Debridement (cm) - Width 3.0 -Total Square (Area) (cm) 12.00 -Tunneling No -Undermining/Tunneling No -Circular Undermining No -Wound/Ulcer Outcome Not Healed -Ulcer Cleansing Rinsed/ Irrigated with Saline -Foul Odor after Cleansing No -Bioengineered Tissue No -Bleeding Controlled with Pressure -Offloading No -Treatment Response Procedure Tolerated Well -Debridement - Subq, 1st 20sq cm No [See Physician Procedure note for Specifics] Pain Scale: 0-10 Numeric [Pain] -Is Patient Pain Free? Yes WC - Nurse 3 - General Ulcer D/C NN Start: 09/02/20 08:59 Freq: Status: Active Protocol: Activity Type Activity Date Activity User E-Sign Co-Sign Detail Recorded Client Recorded Date Recorded By Document 09/02/20 09:53 [facility] [id number] 09/02/20 09:55 [facility] 09/02/20 09:53 Wound Care Nurse 3 [Wound Dressing] #14 LEFT DORSAL FOOT -Ulcer Cleansing Rinsed/ Irrigated with Saline -Foul Odor after Cleansing No -Primary Dressing Applied Aquacel AG 4x4 -Primary Dressing Covered/Secured Dry Gauze & with Roll Gauze, Secured with Tape -Aquacel AG 4x4 1 #12 Medial Superior LLE -Ulcer Cleansing Rinsed/ Irrigated with Saline -Foul Odor after Cleansing No -Primary Dressing Applied Aquacel AG 4x4 -Primary Dressing Covered/Secured Dry Gauze & with Roll Gauze, Secured with Tape -Other Covering KERRAMAX -Aquacel AG 4x4 0 #11 Medial Inferior LLE -Ulcer Cleansing Rinsed/ Irrigated with Saline -Foul Odor after Cleansing No -Primary Dressing Applied Aquacel AG 4x4 -Primary Dressing Covered/Secured Dry Gauze & with Roll Gauze, Secured with Tape,Other -Other Covering ABD -Aquacel AG 4x4 0 #10 Left Medial Ankle -Ulcer Cleansing Rinsed/ Irrigated with Saline -Foul Odor after Cleansing No -Primary Dressing Applied Aquacel AG 4x4 -Primary Dressing Covered/Secured Dry Gauze & with Roll Gauze, Secured with Tape -Aquacel AG 4x4 0 [Compression Applied] Left -Other PT WILL APPLY OWN COMPRESSION AT HOME [Post Procedure Tolerated] -Treatment Response Procedure Tolerated Well Pain Scale: 0-10 Numeric [Pain] -Is Patient Pain Free? Yes WC - Visit Discharge [Visit Discharge Information] -Discharge Condition Stable -Ambulatory Status Ambulatory -Transportation Private Auto Musculoskeletal: No Muscle Wasting Neurological: Cranial nerves II-XII grossly intact Psych/Mental Status: Normal Affect Debridement Note Post-Debridement Measurements/Treatment WC - Nurse 2 - General Ulcer CM Notes Start: 09/02/20 08:59 Freq: Status: Active Protocol: Activity Type Activity Date Activity User E-Sign Co-Sign Detail Recorded Client Recorded Date Recorded By Document 09/02/20 09:27 MW [id number] 09/02/20 09:42 MW 09/02/20 09:27 Wound Center Nurse 2 #14 LEFT DORSAL FOOT -Time 09:29 -Correct Patient Yes -Correct Side, Site, Position Yes -Correct Procedure Yes -Procedure Performed Yes -Type of Procedure Debridement -Clinical Debridement Subcutaneous -Tissue Removed Subcutaneous -Post Debridement (cm) - Length 3.0 -Post Debridement (cm) - Width 2.0 -Post Debridement (cm) - Depth 0.1 -Total Square (Post) (cm) 6.00 -Area of Debridement (cm) - Length 3.0 -Area of Debridement (cm) - Width 2.0 -Total Square (Area) (cm) 6.00 -Tunneling No -Undermining/Tunneling No -Circular Undermining No -Wound/Ulcer Outcome Not Healed -Ulcer Cleansing Rinsed/ Irrigated with Saline -Foul Odor after Cleansing No -Bioengineered Tissue No -Bleeding Controlled with Pressure -Offloading No -Treatment Response Procedure Tolerated Well -Debridement - Subq, 1st 20sq cm Yes -Debridement, SubQ, ea addt'l 20sq cm 2 or part thereof #12 Medial Superior LLE -Time 09:29 -Correct Patient Yes -Correct Side, Site, Position Yes -Correct Procedure Yes -Procedure Performed Yes -Type of Procedure Debridement -Clinical Debridement Subcutaneous -Tissue Removed Subcutaneous -Post Debridement (cm) - Length 3.0 -Post Debridement (cm) - Width 5.0 -Post Debridement (cm) - Depth 0.1 -Total Square (Post) (cm) 15.00 -Area of Debridement (cm) - Length 3.0 -Area of Debridement (cm) - Width 5.0 -Total Square (Area) (cm) 15.00 -Tunneling No -Undermining/Tunneling No -Circular Undermining No -Wound/Ulcer Outcome Not Healed -Ulcer Cleansing Rinsed/ Irrigated with Saline -Foul Odor after Cleansing No -Bioengineered Tissue No -Bleeding Controlled with Pressure -Offloading No -Treatment Response Procedure Tolerated Well -Debridement - Subq, 1st 20sq cm No #11 Medial Inferior LLE -Time 09:29 -Correct Patient Yes -Correct Side, Site, Position Yes -Correct Procedure Yes -Procedure Performed Yes -Type of Procedure Debridement -Clinical Debridement Subcutaneous -Tissue Removed Subcutaneous -Post Debridement (cm) - Length 3.5 -Post Debridement (cm) - Width 6.3 -Post Debridement (cm) - Depth 0.1 -Total Square (Post) (cm) 22.05 -Area of Debridement (cm) - Length 3.5 -Area of Debridement (cm) - Width 6.3 -Total Square (Area) (cm) 22.05 -Tunneling No -Undermining/Tunneling No -Circular Undermining No -Wound/Ulcer Outcome Not Healed -Ulcer Cleansing Rinsed/ Irrigated with Saline -Foul Odor after Cleansing No -Bioengineered Tissue No -Bleeding Controlled with Pressure -Offloading No -Treatment Response Procedure Tolerated Well -Debridement - Subq, 1st 20sq cm No #10 Left Medial Ankle -Time 09:30 -Correct Patient Yes -Correct Side, Site, Position Yes -Correct Procedure Yes -Procedure Performed Yes -Type of Procedure Debridement -Clinical Debridement Subcutaneous -Tissue Removed Subcutaneous -Post Debridement (cm) - Length 4.0 -Post Debridement (cm) - Width 3.0 -Post Debridement (cm) - Depth 0.3 -Total Square (Post) (cm) 12.00 -Area of Debridement (cm) - Length 4.0 -Area of Debridement (cm) - Width 3.0 -Total Square (Area) (cm) 12.00 -Tunneling No -Undermining/Tunneling No -Circular Undermining No -Wound/Ulcer Outcome Not Healed -Ulcer Cleansing Rinsed/ Irrigated with Saline -Foul Odor after Cleansing No -Bioengineered Tissue No -Bleeding Controlled with Pressure -Offloading No -Treatment Response Procedure Tolerated Well -Debridement - Subq, 1st 20sq cm No Pain Scale: 0-10 Numeric Is Patient Pain Free? Yes - Nurse 3 - General Ulcer D/C NN Start: 09/02/20 08:59 Freq: Status: Active Protocol: Activity Type Activity Date Activity User E-Sign Co-Sign Detail Recorded Client Recorded Date Recorded By Document 09/02/20 09:53 [facility] [id number] 09/02/20 09:55 [facility] 09/02/20 09:53 Wound Care Nurse 3 #14 LEFT DORSAL FOOT -Ulcer Cleansing Rinsed/ Irrigated with Saline -Foul Odor after Cleansing No -Primary Dressing Applied Aquacel AG 4x4 -Primary Dressing Covered/Secured with Dry Gauze & Roll Gauze, Secured with Tape -Aquacel AG 4x4 1 #12 Medial Superior LLE -Ulcer Cleansing Rinsed/ Irrigated with Saline -Foul Odor after Cleansing No -Primary Dressing Applied Aquacel AG 4x4 -Primary Dressing Covered/Secured with Dry Gauze & Roll Gauze, Secured with Tape -Other Covering KERRAMAX -Aquacel AG 4x4 0 #11 Medial Inferior LLE -Ulcer Cleansing Rinsed/ Irrigated with Saline -Foul Odor after Cleansing No -Primary Dressing Applied Aquacel AG 4x4 -Primary Dressing Covered/Secured with Dry Gauze & Roll Gauze, Secured with Tape,Other -Other Covering ABD -Aquacel AG 4x4 0 #10 Left Medial Ankle -Ulcer Cleansing Rinsed/ Irrigated with Saline -Foul Odor after Cleansing No -Primary Dressing Applied Aquacel AG 4x4 -Primary Dressing Covered/Secured with Dry Gauze & Roll Gauze, Secured with Tape -Aquacel AG 4x4 0 Left -Other PT WILL APPLY OWN COMPRESSION AT HOME Treatment Response Procedure Tolerated Well Pain Scale: 0-10 Numeric Is Patient Pain Free? Yes - Visit Discharge Discharge Condition Stable Ambulatory Status Ambulatory Transportation Private Auto Wound debrided: Left Foot Type of Debridement: Excisional debridement Anesthesia Used: 4% Lidocaine Solution Depth: Down to and including healthy tissue, in the subcutaneous layer Percentage of wound debrided: 100 Instrument Used: 5mm curette Tissue Removed: Slough and devitalized tissue Severity: Fat Layer Exposed Amount of bleeding with debridement: Mild Bleeding Controlled with: Pressure Patient tolerated procedure well - Additional Wound Wound debrided: Left ankle ( medial ) Type of Debridement: Excisional debridement Anesthesia Used: 4% Lidocaine Solution Depth: Down to and including healthy tissue, in the subcutaneous layer Percentage of wound debrided: 100 Instrument Used: 5mm curette Tissue Removed: Slough and devitalized tissue Severity: Fat Layer Exposed Amount of bleeding with debridement: Mild Bleeding Controlled with: Pressure Patient tolerated procedure: Patient tolerated procedure well - Additional Wound Wound debrided: Left lower extremity ( inferior ) Type of Debridement: Excisional debridement Anesthesia Used: 4% Lidocaine Solution Depth: Down to and including healthy tissue, in the subcutaneous layer Percentage of wound debrided: 100 Instrument Used: 5mm curette Tissue Removed: Slough and devitalized tissue Severity: Fat Layer Exposed Amount of bleeding with debridement: Mild Bleeding Controlled with: Pressure Patient tolerated procedure: Patient tolerated procedure well - Additional Wound Wound debrided: Left lower extremity superior Type of Debridement: Excisional debridement Anesthesia Used: 4% Lidocaine Solution Depth: Down to and including healthy tissue, in the subcutaneous layer Percentage of wound debrided: 100 Instrument Used: 5mm curette Tissue Removed: Slough and devitalized tissue Severity: Fat Layer Exposed Amount of bleeding with debridement: Mild Bleeding Controlled with: Pressure Patient tolerated procedure: Patient tolerated procedure well Assessment/Plan Active Problems Ulcer of left lower extremity with fat layer exposed (Chronic) Delayed wound healing (Chronic) Chronic venous insufficiency (Chronic) Assessment: Chronic left leg ulcer. Venous insufficiency. Leg edema. Delayed ulcer healing. Plan: Debridement done as documented above, procedure was well tolerated. New left foot ulcer and concern for cellulitis. Continue Aquacel Ag and keramax. Change daily to twice daily depending on drainage. Cleanse daily. Will start empirically on levofloxacin and doxycycline which he has tolerated well in the past. Continue use of compression stockings, leg elevation and exercise. Increased protein intake , protein supplements, zinc and vitamin C also recommended. His questions were answered and he was advised to call with any further questions or concerns. Follow-up in 1 week. This note was generated with [employer] software. It may contain incorrect words, spelling, and punctuation that were not noted in checking the note before signing. [id number]: [id number] Lakeisha subq tissue 20 sq cm/< Add On Codes: [id number] Lakeisha subq tissue add-on - Additional Sq CM debrided, please refer to clinical note.
[2020-09-09 09:54] VITALS: BP 142/79; PULSE 82; RESP 18; TEMP 36.8; BMI 31.4
--- NOTE | 2020-09-09 10:56 | PN.PCM_ITS ---
(1) Ulcer of left lower extremity with fat layer exposed Status: Chronic Code(s): L97.922 - Non-pressure chronic ulcer of unspecified part of left lower leg with fat layer exposed (2) Chronic venous insufficiency Status: Chronic (3) Delayed wound healing Status: Chronic Code(s): T14.8XXD - Other injury of unspecified body region, subsequent encounter Type of Wound Date of Service: 09/09/20 Chief Complaint: ulcers to the left lower leg History of Wound: This is a 54-year-old male presents to wound healing center w ith a long-standing history of chronic venous insufficiency, chronic venous hypertension, lower extremity edema, lower extremity pain, and chronic left lower extremity ulcer. 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 He is currently wearing graduated compression stockings which are documented to be 20-30 mmHg compression and these are thigh high. He reports great compliance with use. He is also had previous arterial work-up with no intervention recommended by letter, his vascular surgeon. He denies taking nutritional supplementation. He saw dermatology and had a biopsy of the ulcer site. He also was previously treated by infectious disease for various contaminations and infections. He is not antibiotics at this time nor does he have any redness or odor coming from the wound. He denies fever, chill, nausea, vomiting, loss of appetite. Progress of Wound: Currently on levofloxacin and doxycycline. Left lower extremity pain and redness have improved. No new concerns at this time. - Physical Exam Vital Signs Temp Pulse Resp BP 98.3 F 82 18 142/79 H 09/09/20 09:54 09/09/20 09:54 09/09/20 09:54 09/09/20 09:54 General: Alert, Oriented x3, Cooperative, No apparent distress HEENT: Atraumatic, Normocephalic Oral: Moist Mucosa Neck: Supple Lungs: Normal air movement Extremities: No cyanosis, Edema Skin: Ulcer/ Wound Wound Measurements and Assessment WC - Nurse 1 - General Ulcer Measurement Start: 09/02/20 08:59 Freq: Status: Active Protocol: Activity Type Activity Date Activity User E-Sign Co-Sign Detail Recorded Client Recorded Date Recorded By Document 11/12/20 09:54 RB [id number] 09/09/20 10:07 RB 09/09/20 09:54 Wound Center Nurse 1 [Ulcer Assessment] #14 LEFT DORSAL FOOT -Combined with other wound No -Current Size (cm) - Length 2.2 -Current Size (cm) - Width 1.2 -Current Size (cm) - Depth 0.1 -Total Square Cm 2.64 -Tunneling No -Undermining/Tunneling No -Circular Undermining No -Exudate Amt Medium -Exudate Type Serosanguineous -Wound Margin Flat & Intact -Granulation Amt Medium (34-66%) -Granulation Quality [place] -Slough/Fibrin Yes -Necrosis Amt Small (1-33%) -Necrotic Tissue Type Adherent Slough -Structure Exposed N/A -Texture (Ara-wound Skin Appearance) Assessed, Scarring -Moisture (Ara-wound Skin Appearance Assessed ) -Color (Ara-wound Skin Appearance) Assessed -Temperature (Ara-wound Skin No Abnormality Appearance) (Pt Warm) -Tenderness on Palpation (Ara-wound No Skin Appearance) -Ulcer Cleansing Rinsed/ Irrigated with Saline -Foul Odor after Cleansing No -Anesthetic Used 4% Lidocaine Solution #12 Medial Superior LLE -Combined with other wound No -Current Size (cm) - Length 3.1 -Current Size (cm) - Width 4.9 -Current Size (cm) - Depth 0.2 -Total Square Cm 15.19 -Tunneling No -Undermining/Tunneling No -Circular Undermining No -Exudate Amt Large -Exudate Type Serosanguineous -Wound Margin Flat & Intact -Granulation Amt Large (67-100%) -Granulation Quality [place] -Slough/Fibrin Yes -Necrosis Amt Small (1-33%) -Necrotic Tissue Type Adherent Slough -Structure Exposed N/A -Texture (Ara-wound Skin Appearance) Assessed, Scarring -Moisture (Ara-wound Skin Appearance Assessed ) -Color (Ara-wound Skin Appearance) Assessed -Temperature (Ara-wound Skin No Abnormality Appearance) (Pt Warm) -Tenderness on Palpation (Ara-wound No Skin Appearance) -Ulcer Cleansing Wound Cleanser -Foul Odor after Cleansing No -Anesthetic Used 4% Lidocaine Solution #11 Medial Inferior LLE -Combined with other wound No -Current Size (cm) - Length 3.9 -Current Size (cm) - Width 5.5 -Current Size (cm) - Depth 0.2 -Total Square Cm 21.45 -Tunneling No -Undermining/Tunneling No -Circular Undermining No -Exudate Amt Medium -Exudate Type Serosanguineous -Wound Margin Flat & Intact -Granulation Amt Medium (34-66%) -Granulation Quality [place] -Slough/Fibrin Yes -Necrosis Amt Small (1-33%) -Necrotic Tissue Type Adherent Slough -Structure Exposed N/A -Texture (Aar-wound Skin Appearance) Assessed, Scarring -Moisture (Ara-wound Skin Appearance Assessed ) -Color (Ara-wound Skin Appearance) Not Assessed -Temperature (Ara-wound Skin No Abnormality Appearance) (Pt Warm) -Tenderness on Palpation (Ara-wound No Skin Appearance) -Ulcer Cleansing Wound Cleanser -Foul Odor after Cleansing No -Anesthetic Used 4% Lidocaine Solution #10 Left Medial Ankle -Combined with other wound No -Current Size (cm) - Length 4 -Current Size (cm) - Width 3 -Current Size (cm) - Depth 0.3 -Total Square Cm 12 -Tunneling No -Undermining/Tunneling No -Circular Undermining No -Exudate Amt Large -Exudate Type Serosanguineous -Wound Margin Flat & Intact -Granulation Amt Medium (34-66%) -Granulation Quality [place] -Slough/Fibrin Yes -Necrosis Amt Small (1-33%) -Necrotic Tissue Type Adherent Slough -Structure Exposed N/A -Texture (Ara-wound Skin Appearance) Assessed, Scarring -Moisture (Ara-wound Skin Appearance Assessed ) -Color (Ara-wound Skin Appearance) Assessed -Temperature (Ara-wound Skin No Abnormality Appearance) (Pt Warm) -Tenderness on Palpation (Ara-wound No Skin Appearance) -Ulcer Cleansing Wound Cleanser -Foul Odor after Cleansing No -Anesthetic Used 4% Lidocaine Solution [Edema Assessment] -Lower Limb Edema Present Yes -Left Calf (cm) 37.2 -Left Ankle (cm) 25 WC - Nurse 2 - General Ulcer CM Notes Start: 09/02/20 08:59 Freq: Status: Active Protocol: Activity Type Activity Date Activity User E-Sign Co-Sign Detail Recorded Client Recorded Date Recorded By Document 09/09/20 10:20 MW [id number] 09/09/20 10:28 MW 09/09/20 10:20 Wound Center Nurse 2 [Procedure/Treatment] #14 LEFT DORSAL FOOT -Time 10:21 -Correct Patient Yes -Correct Side, Site, Position Yes -Correct Procedure Yes -Procedure Performed Yes -Type of Procedure Debridement -Clinical Debridement Subcutaneous -Tissue Removed Subcutaneous -Post Debridement (cm) - Length 2.0 -Post Debridement (cm) - Width 1.0 -Post Debridement (cm) - Depth 0.1 -Total Square (Post) (cm) 2.00 -Area of Debridement (cm) - Length 2.0 -Area of Debridement (cm) - Width 1.0 -Total Square (Area) (cm) 2.00 -Tunneling No -Undermining/Tunneling No -Circular Undermining No -Wound/Ulcer Outcome Not Healed -Ulcer Cleansing Rinsed/ Irrigated with Saline -Foul Odor after Cleansing No -Bioengineered Tissue No -Bleeding Controlled with Pressure -Offloading No -Treatment Response Procedure Tolerated Well -Debridement - Subq, 1st 20sq cm Yes -Debridement, SubQ, ea addt'l 20sq cm 2 or part thereof #12 Medial Superior LLE -Time 10:21 -Correct Patient Yes -Correct Side, Site, Position Yes -Correct Procedure Yes -Procedure Performed Yes -Type of Procedure Debridement -Clinical Debridement Subcutaneous -Tissue Removed Subcutaneous -Post Debridement (cm) - Length 3.0 -Post Debridement (cm) - Width 4.8 -Post Debridement (cm) - Depth 0.1 -Total Square (Post) (cm) 14.40 -Area of Debridement (cm) - Length 3.0 -Area of Debridement (cm) - Width 4.8 -Total Square (Area) (cm) 14.40 -Tunneling No -Undermining/Tunneling No -Circular Undermining No -Wound/Ulcer Outcome Not Healed -Ulcer Cleansing Rinsed/ Irrigated with Saline -Foul Odor after Cleansing No -Bioengineered Tissue No -Bleeding Controlled with Pressure -Offloading No -Debridement - Subq, 1st 20sq cm No #11 Medial Inferior LLE -Time 10:22 -Correct Patient Yes -Correct Side, Site, Position Yes -Correct Procedure Yes -Procedure Performed Yes -Type of Procedure Debridement -Clinical Debridement Subcutaneous -Tissue Removed Subcutaneous -Post Debridement (cm) - Length 3.0 -Post Debridement (cm) - Width 5.5 -Post Debridement (cm) - Depth 0.1 -Total Square (Post) (cm) 16.50 -Area of Debridement (cm) - Length 3.0 -Area of Debridement (cm) - Width 5.5 -Total Square (Area) (cm) 16.50 -Tunneling No -Undermining/Tunneling No -Circular Undermining No -Wound/Ulcer Outcome Not Healed -Ulcer Cleansing Rinsed/ Irrigated with Saline -Foul Odor after Cleansing No -Bioengineered Tissue No -Bleeding Controlled with Pressure -Offloading No -Debridement - Subq, 1st 20sq cm Yes #10 Left Medial Ankle -Time 10:22 -Correct Patient Yes -Correct Side, Site, Position Yes -Correct Procedure Yes -Procedure Performed Yes -Type of Procedure Debridement -Clinical Debridement Subcutaneous -Tissue Removed Subcutaneous -Post Debridement (cm) - Length 4.0 -Post Debridement (cm) - Width 3.0 -Post Debridement (cm) - Depth 0.3 -Total Square (Post) (cm) 12.00 -Area of Debridement (cm) - Length 4.0 -Area of Debridement (cm) - Width 3.0 -Total Square (Area) (cm) 12.00 -Tunneling No -Undermining/Tunneling No -Circular Undermining No -Wound/Ulcer Outcome Not Healed -Ulcer Cleansing Rinsed/ Irrigated with Saline -Foul Odor after Cleansing No -Bioengineered Tissue No -Bleeding Controlled with Pressure -Offloading No -Debridement - Subq, 20sq cm No [See Physician Procedure note for Specifics] Pain Scale: 0-10 Numeric [Pain] -Is Patient Pain Free? Yes - Nurse 3 - General Ulcer D/C NN Start: 09/02/20 08:59 Freq: Status: Active Protocol: Activity Type Activity Date Activity User E-Sign Co-Sign Detail Recorded Client Recorded Date Recorded By Document 09/09/20 10:34 [facility] [id number] 09/09/20 10:36 [facility] 09/09/20 10:34 Wound Care Nurse 3 [Wound Dressing] #14 LEFT DORSAL FOOT -Ulcer Cleansing Rinsed/ Irrigated with Saline -Foul Odor after Cleansing No -Primary Dressing Applied Other -Other Dressing aquacel ag -Primary Dressing Covered/Secured Dry Gauze & with Roll Gauze, Secured with Tape #12 Medial Superior LLE -Ulcer Cleansing Rinsed/ Irrigated with Saline -Foul Odor after Cleansing No -Primary Dressing Applied Other -Other Dressing aquacel ag -Primary Dressing Covered/Secured Dry Gauze & with Roll Gauze, Other -Other Covering abd #11 Medial Inferior LLE -Ulcer Cleansing Rinsed/ Irrigated with Saline -Foul Odor after Cleansing No -Primary Dressing Applied Other -Other Dressing AQUACEL AG -Primary Dressing Covered/Secured Dry Gauze & with Roll Gauze, Secured with Tape,Other -Other Covering KERRAMAX #10 Left Medial Ankle -Ulcer Cleansing Rinsed/ Irrigated with Saline -Foul Odor after Cleansing No -Primary Dressing Applied Other -Other Dressing AQUACEL AG -Primary Dressing Covered/Secured Dry Gauze & with Roll Gauze, Secured with Tape,Other -Other Covering KERRAMAX [Compression Applied] Left -Other PT WILL APPLY OWN COMPRESSION STOCKING @ HOME Pain Scale: 0-10 Numeric [Pain] -Is Patient Pain Free? Yes WC - Visit Discharge [Visit Discharge Information] -Discharge Condition Stable -Ambulatory Status Ambulatory -Transportation Private Auto Musculoskeletal: No Muscle Wasting Neurological: Cranial nerves II-XII grossly intact Psych/Mental Status: Normal Affect Debridement Note Post-Debridement Measurements/Treatment WC - Nurse 2 - General Ulcer CM Notes Start: 09/02/20 08:59 Freq: Status: Active Protocol: Activity Type Activity Date Activity User E-Sign Co-Sign Detail Recorded Client Recorded Date Recorded By Document 09/02/20 09:27 MW [id number] 09/02/20 09:42 MW Document 09/09/20 10:20 MW [id number] 09/09/20 10:28 MW 09/02/20 09/09/20 09:27 10:20 Wound Center Nurse 2 #14 LEFT DORSAL FOOT -Time 09:29 10:21 -Correct Patient Yes Yes -Correct Side, Site, Position Yes Yes -Correct Procedure Yes Yes -Procedure Performed Yes Yes -Type of Procedure Debridement Debridement -Clinical Debridement Subcutaneous Subcutaneous -Tissue Removed Subcutaneous Subcutaneous -Post Debridement (cm) - Length 3.0 2.0 -Post Debridement (cm) - Width 2.0 1.0 -Post Debridement (cm) - Depth 0.1 0.1 -Total Square (Post) (cm) 6.00 2.00 -Area of Debridement (cm) - Length 3.0 2.0 -Area of Debridement (cm) - Width 2.0 1.0 -Total Square (Area) (cm) 6.00 2.00 -Tunneling No No -Undermining/Tunneling No No -Circular Undermining No No -Wound/Ulcer Outcome Not Healed Not Healed -Ulcer Cleansing Rinsed/ Rinsed/ Irrigated with Irrigated with Saline Saline -Foul Odor after Cleansing No No -Bioengineered Tissue No No -Bleeding Controlled with Pressure Pressure -Offloading No No -Treatment Response Procedure Procedure Tolerated Well Tolerated Well -Debridement - Subq, 1st 20sq cm Yes Yes -Debridement, SubQ, ea addt'l 20sq cm 2 2 or part thereof #12 Medial Superior LLE -Time 09: 10:21 -Correct Patient Yes Yes -Correct Side, Site, Position Yes Yes -Correct Procedure Yes Yes -Procedure Performed Yes Yes -Type of Procedure Debridement Debridement -Clinical Debridement Subcutaneous Subcutaneous -Tissue Removed Subcutaneous Subcutaneous -Post Debridement (cm) - Length 3.0 3.0 -Post Debridement (cm) - Width 5.0 4.8 -Post Debridement (cm) - Depth 0.1 0.1 -Total Square (Post) (cm) 15.00 14.40 -Area of Debridement (cm) - Length 3.0 3.0 -Area of Debridement (cm) - Width 5.0 4.8 -Total Square (Area) (cm) 15.00 14.40 -Tunneling No No -Undermining/Tunneling No No -Circular Undermining No No -Wound/Ulcer Outcome Not Healed Not Healed -Ulcer Cleansing Rinsed/ Rinsed/ Irrigated with Irrigated with Saline Saline -Foul Odor after Cleansing No No -Bioengineered Tissue No No -Bleeding Controlled with Pressure Pressure -Offloading No No -Treatment Response Procedure Tolerated Well -Debridement - Subq, 1st 20sq cm No No #11 Medial Inferior LLE -Time 09:29 10:22 -Correct Patient Yes Yes -Correct Side, Site, Position Yes Yes -Correct Procedure Yes Yes -Procedure Performed Yes Yes -Type of Procedure Debridement Debridement -Clinical Debridement Subcutaneous Subcutaneous -Tissue Removed Subcutaneous Subcutaneous -Post Debridement (cm) - Length 3.5 3.0 -Post Debridement (cm) - Width 6.3 5.5 -Post Debridement (cm) - Depth 0.1 0.1 -Total Square (Post) (cm) 22.05 16.50 -Area of Debridement (cm) - Length 3.5 3.0 -Area of Debridement (cm) - Width 6.3 5.5 -Total Square (Area) (cm) 22.05 16.50 -Tunneling No No -Undermining/Tunneling No No -Circular Undermining No No -Wound/Ulcer Outcome Not Healed Not Healed -Ulcer Cleansing Rinsed/ Rinsed/ Irrigated with Irrigated with Saline Saline -Foul Odor after Cleansing No No -Bioengineered Tissue No No -Bleeding Controlled with Pressure Pressure -Offloading No No -Treatment Response Procedure Tolerated Well -Debridement - Subq, 1st 20sq cm No Yes #10 Left Medial Ankle -Time 09:30 10:22 -Correct Patient Yes Yes -Correct Side, Site, Position Yes Yes -Correct Procedure Yes Yes -Procedure Performed Yes Yes -Type of Procedure Debridement Debridement -Clinical Debridement Subcutaneous Subcutaneous -Tissue Removed Subcutaneous Subcutaneous -Post Debridement (cm) - Length 4.0 4.0 -Post Debridement (cm) - Width 3.0 3.0 -Post Debridement (cm) - Depth 0.3 0.3 -Total Square (Post) (cm) 12.00 12.00 -Area of Debridement (cm) - Length 4.0 4.0 -Area of Debridement (cm) - Width 3.0 3.0 -Total Square (Area) (cm) 12.00 12.00 -Tunneling No No -Undermining/Tunneling No No -Circular Undermining No No -Wound/Ulcer Outcome Not Healed Not Healed -Ulcer Cleansing Rinsed/ Rinsed/ Irrigated with Irrigated with Saline Saline -Foul Odor after Cleansing No No -Bioengineered Tissue No No -Bleeding Controlled with Pressure Pressure -Offloading No No -Treatment Response Procedure Tolerated Well -Debridement - Subq, 1st 20sq cm No No Pain Scale: 0-10 Numeric Is Patient Pain Free? Yes Yes WC - Nurse 3 - General Ulcer D/C NN Start: 09/02/20 08:59 Freq: Status: Active Protocol: Activity Type Activity Date Activity User E-Sign Co-Sign Detail Recorded Client Recorded Date Recorded By Document 09/02/20 09:53 [facility] [id number] 09/02/20 09:55 [facility] Document 09/09/20 10:34 [facility] [id number] 09/09/20 10:36 [facility] 09/02/20 09/09/20 09:53 10:34 Wound Care Nurse 3 #14 LEFT DORSAL FOOT -Ulcer Cleansing Rinsed/ Rinsed/ Irrigated with Irrigated with Saline Saline -Foul Odor after Cleansing No No -Primary Dressing Applied Aquacel AG 4x4 Other -Other Dressing aquacel ag -Primary Dressing Covered/Secured with Dry Gauze & Dry Gauze & Roll Gauze, Roll Gauze, Secured with Secured with Tape Tape -Aquacel AG 4x4 1 #12 Medial Superior LLE -Ulcer Cleansing Rinsed/ Rinsed/ Irrigated with Irrigated with Saline Saline -Foul Odor after Cleansing No No -Primary Dressing Applied Aquacel AG 4x4 Other -Other Dressing aquacel ag -Primary Dressing Covered/Secured with Dry Gauze & Dry Gauze & Roll Gauze, Roll Gauze, Secured with Other Tape -Other Covering KERRAMAX abd -Aquacel AG 4x4 0 #11 Medial Inferior LLE -Ulcer Cleansing Rinsed/ Rinsed/ Irrigated with Irrigated with Saline Saline -Foul Odor after Cleansing No No -Primary Dressing Applied Aquacel AG 4x4 Other -Other Dressing AQUACEL AG -Primary Dressing Covered/Secured with Dry Gauze & Dry Gauze & Roll Gauze, Roll Gauze, Secured with Secured with Tape,Other Tape,Other -Other Covering ABD KERRAMAX -Aquacel AG 4x4 0 #10 Left Medial Ankle -Ulcer Cleansing Rinsed/ Rinsed/ Irrigated with Irrigated with Saline Saline -Foul Odor after Cleansing No No -Primary Dressing Applied Aquacel AG 4x4 Other -Other Dressing AQUACEL AG -Primary Dressing Covered/Secured with Dry Gauze & Dry Gauze & Roll Gauze, Roll Gauze, Secured with Secured with Tape Tape,Other -Other Covering KERRAMAX -Aquacel AG 4x4 0 Left -Other PT WILL APPLY PT WILL APPLY OWN COMPRESSION OWN COMPRESSION AT HOME STOCKING @ HOME Treatment Response Procedure Tolerated Well Pain Scale: 0-10 Numeric Is Patient Pain Free? Yes Yes WC - Visit Discharge Discharge Condition Stable Stable Ambulatory Status Ambulatory Ambulatory Transportation Private Auto Private Auto Wound debrided: Left foot (dorsal) Type of Debridement: Excisional debridement Anesthesia Used: 4% Lidocaine Solution Depth: Down to and including healthy tissue, in the subcutaneous layer Percentage of wound debrided: 100 Instrument Used: 5mm curette Tissue Removed: Slough and devitalized tissue Severity: Fat Layer Exposed Amount of bleeding with debridement: Mild Bleeding Controlled with: Pressure Patient tolerated procedure well - Additional Wound Wound debrided: Left medial ankle Type of Debridement: Excisional debridement Anesthesia Used: 4% Lidocaine Solution Depth: Down to and including healthy tissue, in the subcutaneous layer Percentage of wound debrided: 100 Instrument Used: 5mm curette Tissue Removed: Slough and devitalized tissue Severity: Fat Layer Exposed Amount of bleeding with debridement: Mild Bleeding Controlled with: Pressure Patient tolerated procedure: Patient tolerated procedure well - Additional Wound Wound debrided: Left lower extremity inferior Type of Debridement: Excisional debridement Anesthesia Used: 4% Lidocaine Solution Depth: Down to and including healthy tissue, in the subcutaneous layer Percentage of wound debrided: 100 Instrument Used: 5mm curette Tissue Removed: Slough and devitalized tissue Severity: Fat Layer Exposed Amount of bleeding with debridement: Mild Bleeding Controlled with: Pressure Patient tolerated procedure: Patient tolerated procedure well - Additional Wound Wound debrided: Left lower extremity superior Type of Debridement: Excisional debridement Anesthesia Used: 4% Lidocaine Solution Depth: Down to and including healthy tissue, in the subcutaneous layer Percentage of wound debrided: 100 Instrument Used: 5mm curette Tissue Removed: Slough and devitalized tissue Severity: Fat Layer Exposed Amount of bleeding with debridement: Mild Bleeding Controlled with: Pressure Patient tolerated procedure: Patient tolerated procedure well Assessment/Plan Active Problems Ulcer of left lower extremity with fat layer exposed (Chronic) Delayed wound healing (Chronic) Chronic venous insufficiency (Chronic) Assessment: Chronic left leg ulcer. Venous insufficiency. Leg edema. Delayed ulcer healing. Plan: Debridement done as documented above, procedure was well tolerated. Tenderness and erythema have improved. Left dorsal foot ulcer also improving. Continue Aquacel Ag and keramax. Change daily to twice daily depending on drainage. Cleanse daily. Continue use of compression stockings, leg elevation and exercise. Increased protein intake , protein supplements, zinc and vitamin C also recommended. His questions were answered and he was advised to call with any further questions or concerns. Follow-up in 1 week. This note was generat ed with [employer] dictation software. It may contain incorrect words, spelling, and punctuation that were not noted in checking the note before signing. [id number]: [id number] [place] subq tissue 20 sq cm/< Add On Codes: [id number] [place]isha subq tissue add-on - Additional square centimeter debrided, please refer to clinical note.
[2020-09-16 09:11] VITALS: TEMP 36.8; BMI 31.4
[2020-09-16 09:56] VITALS: BP 140/82
--- NOTE | 2020-09-16 12:27 | PCM.WC.PN ---
(1) Ulcer of left lower extremity with fat layer exposed Status: Chronic Code(s): L97.922 - Non-pressure chronic ulcer of unspecified part of left lower leg with fat layer exposed (2) Chronic venous insufficiency Status: Chronic (3) Delayed wound healing Status: Chronic Code(s): T14.8XXD - Other injury of unspecified body region, subsequent encounter Type of Wound Date of Service: 09/16/20 Chief Complaint: ulcers to the left lower leg History of Wound: This is a 54-year-old male presents to wound healing center with a long-standing history of chronic venous insufficiency, chronic venous hypertension, lower extremity edema, lower extremity pain, and chronic left lower extremity ulcer. 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 He is currently wearing graduated compression stockings which are documented to be 20-30 mmHg compression and these are thigh high. He reports great compliance with use. He is also had previous arterial work-up with no intervention recommended by letter, his vascular surgeon. He denies taking nutritional supplementation. He saw dermatology and had a biopsy of the ulcer site. He also was previously treated by infectious disease for various contaminations and infections. He is not antibiotics at this time nor does he have any redness or odor coming from the wound. He denies fever, chill, nausea, vomiting, loss of appetite. Progress of Wound: No new concerns at this time. Stable ulcers. - Physical Exam Vital Signs Temp Pulse Resp BP 98.2 F 82 18 140/82 H 09/16/20 09:11 09/09/20 09:54 09/09/20 09:54 09/16/20 09:56 General: Alert, Oriented x3, Cooperative, No apparent distress HEENT: Atraumatic, Normocephalic Oral: Moist Mucosa Neck: Supple Lungs: Normal air movement Extremities: No cyanosis Skin: Ulcer/ Wound Wound Measurements and Assessment WC - Nurse 1 - General Ulcer Measurement Start: 09/02/20 08:59 Freq: Status: Active Protocol: Activity Type Activity Date Activity User E-Sign Co-Sign Detail Recorded Client Recorded Date Recorded By Document 09/16/20 09:11 [id number] 09/16/20 09:24 REINA 09/16/20 09:11 Wound Center Nurse 1 [Ulcer Assessment] #14 LEFT DORSAL FOOT -Combined with other wound No -Current Size (cm) - Length 2.1 -Current Size (cm) - Width 1 -Current Size (cm) - Depth 0.1 -Total Square Cm 2.1 -Photo Taken No -Exudate Amt Small -Exudate Type Serosanguineous -Wound Margin Distinct, Outline Attached -Granulation Amt Small (1-33%) -Granulation Quality Hyper- granulation,Red -Necrosis Amt Small (1-33%) -Necrotic Tissue Type Adherent Slough -Texture (Ara-wound Skin Appearance) Assessed, Scarring -Moisture (Ara-wound Skin Appearance No Abnormality ) -Color (Ara-wound Skin Appearance) Assessed, Erythema -Temperature (Ara-wound Skin No Abnormality Appearance) (Pt Warm) -Tenderness on Palpation (Ara-wound No Skin Appearance) -Ulcer Cleansing Rinsed/ Irrigated with Saline -Foul Odor after Cleansing No -Anesthetic Used 4% Lidocaine Solution #12 Medial Superior LLE -Combined with other wound No -Current Size (cm) - Length 5.5 -Current Size (cm) - Width 2.1 -Current Size (cm) - Depth 0.1 -Total Square Cm 11.55 -Exudate Amt Small -Exudate Type Serosanguineous -Wound Margin Distinct, Outline Attached -Granulation Amt Small (1-33%) -Granulation Quality Red -Necrosis Amt Small (1-33%) -Necrotic Tissue Type Adherent Slough -Texture (Ara-wound Skin Appearance) Assessed, Scarring -Moisture (Ara-wound Skin Appearance No Abnormality ) -Color (Ara-wound Skin Appearance) No Abnormality, Assessed, Erythema -Temperature (Ara-wound Skin No Abnormality Appearance) (Pt Warm) -Tenderness on Palpation (Ara-wound No Skin Appearance) -Ulcer Cleansing SOAPY WATER -Anesthetic Used 4% Lidocaine Solution #11 Medial Inferior LLE -Combined with other wound No -Current Size (cm) - Length 5.3 -Current Size (cm) - Width 3.1 -Current Size (cm) - Depth 0.1 -Total Square Cm 16.43 -Exudate Amt Small -Exudate Type Serosanguineous -Wound Margin Distinct, Outline Attached -Granulation Amt Small (1-33%) -Granulation Quality Red -Necrosis Amt Small (1-33%) -Necrotic Tissue Type Adherent Slough -Texture (Ara-wound Skin Appearance) Assessed, Scarring -Color (Ara-wound Skin Appearance) No Abnormality -Temperature (Ara-wound Skin No Abnormality Appearance) (Pt Warm) -Tenderness on Palpation (Ara-wound No Skin Appearance) -Ulcer Cleansing SOAPY WATER -Foul Odor after Cleansing No -Anesthetic Used 4% Lidocaine Solution #10 Left Medial Ankle -Combined with other wound No -Current Size (cm) - Length 5.1 -Current Size (cm) - Width 2.5 -Current Size (cm) - Depth 0.1 -Total Square Cm 12.75 -Exudate Amt Small -Exudate Type Serosanguineous -Wound Margin Distinct, Outline Attached -Granulation Amt Small (1-33%) -Granulation Quality Red -Necrosis Amt Small (1-33%) -Necrotic Tissue Type Adherent Slough -Texture (Ara-wound Skin Appearance) Assessed, Scarring -Moisture (Ara-wound Skin Appearance No Abnormality ) -Temperature (Ara-wound Skin No Abnormality Appearance) (Pt Warm) -Tenderness on Palpation (Ara-wound No Skin Appearance) -Ulcer Cleansing SOAPY WATER -Anesthetic Used 4% Lidocaine Solution WC - Nurse 2 - General Ulcer CM Notes Start: 09/02/20 08:59 Freq: Status: Active Protocol: Activity Type Activity Date Activity User E-Sign Co-Sign Detail Recorded Client Recorded Date Recorded By Document 09/16/20 09:31 MW [id number] 09/16/20 09:43 MW 09/16/20 09:31 Wound Center Nurse 2 [Procedure/Treatment] #14 LEFT DORSAL FOOT -Time 09:31 -Correct Patient Yes -Correct Side, Site, Position Yes -Correct Procedure Yes -Procedure Performed Yes -Type of Procedure Debridement -Clinical Debridement Subcutaneous -Tissue Removed Subcutaneous -Post Debridement (cm) - Length 1.5 -Post Debridement (cm) - Width 1.1 -Post Debridement (cm) - Depth 0.1 -Total Square (Post) (cm) 1.65 -Area of Debridement (cm) - Length 1.5 -Area of Debridement (cm) - Width 1.1 -Total Square (Area) (cm) 1.65 -Tunneling No -Undermining/Tunneling No -Circular Undermining No -Wound/Ulcer Outcome Not Healed -Ulcer Cleansing Rinsed/ Irrigated with Saline -Foul Odor after Cleansing No -Bioengineered Tissue No -Bleeding Controlled with Pressure -Offloading No -Treatment Response Procedure Tolerated Well -Debridement - Subq, 1st 20sq cm Yes -Debridement, SubQ, ea addt'l 20sq cm 2 or part thereof #12 Medial Superior LLE -Time 09:31 -Correct Patient Yes -Correct Side, Site, Position Yes -Correct Procedure Yes -Procedure Performed Yes -Type of Procedure Debridement -Clinical Debridement Subcutaneous -Tissue Removed Subcutaneous -Post Debridement (cm) - Length 3.3 -Post Debridement (cm) - Width 5.0 -Post Debridement (cm) - Depth 0.1 -Total Square (Post) (cm) 16.50 -Area of Debridement (cm) - Length 3.3 -Area of Debridement (cm) - Width 5.0 -Total Square (Area) (cm) 16.50 -Tunneling No -Undermining/Tunneling No -Circular Undermining No -Wound/Ulcer Outcome Not Healed -Ulcer Cleansing Rinsed/ Irrigated with Saline -Foul Odor after Cleansing No -Bioengineered Tissue No -Bleeding Controlled with Pressure -Offloading No -Treatment Response Procedure Tolerated Well -Debridement - Subq, 1st 20sq cm No #11 Medial Inferior LLE -Time 09:32 -Correct Patient Yes -Correct Side, Site, Position Yes -Correct Procedure Yes -Procedure Performed Yes -Type of Procedure Debridement -Clinical Debridement Subcutaneous -Tissue Removed Subcutaneous -Post Debridement (cm) - Length 2.5 -Post Debridement (cm) - Width 5.5 -Post Debridement (cm) - Depth 0.1 -Total Square (Post) (cm) 13.75 -Area of Debridement (cm) - Length 2.5 -Area of Debridement (cm) - Width 5.5 -Total Square (Area) (cm) 13.75 -Tunneling No -Undermining/Tunneling No -Circular Undermining No -Wound/Ulcer Outcome Not Healed -Ulcer Cleansing Rinsed/ Irrigated with Saline -Foul Odor after Cleansing No -Bioengineered Tissue No -Bleeding Controlled with Pressure -Offloading No -Treatment Response Procedure Tolerated Well -Debridement - Subq, 1st 20sq cm No #10 Left Medial Ankle -Time 09:32 -Correct Patient Yes -Correct Side, Site, Position Yes -Correct Procedure Yes -Procedure Performed Yes -Type of Procedure Debridement -Clinical Debridement Subcutaneous -Tissue Removed Subcutaneous -Post Debridement (cm) - Length 3.5 -Post Debridement (cm) - Width 2.5 -Post Debridement (cm) - Depth 0.3 -Total Square (Post) (cm) 8.75 -Area of Debridement (cm) - Length 3.5 -Area of Debridement (cm) - Width 2.5 -Total Square (Area) (cm) 8.75 -Tunneling No -Undermining/Tunneling No -Circular Undermining No -Wound/Ulcer Outcome Not Healed -Ulcer Cleansing Rinsed/ Irrigated with Saline -Foul Odor after Cleansing No -Bioengineered Tissue No -Bleeding Controlled with Pressure -Offloading No -Debridement - Subq, 1st 20sq cm No [See Physician Procedure note for Specifics] Pain Scale: 0-10 Numeric [Pain] -Is Patient Pain Free? Yes WC - Nurse 3 - General Ulcer D/C NN Start: 09/02/20 08:59 Freq: Status: Active Protocol: Activity Type Activity Date Activity User E-Sign Co-Sign Detail Recorded Client Recorded Date Recorded By Document 09/16/20 09:56 [id number] 09/16/20 09:58 09/16/20 09:56 Wound Care Nurse 3 [Wound Dressing] #14 LEFT DORSAL FOOT -Ulcer Cleansing Rinsed/ Irrigated with Saline -Primary Dressing Applied Aquacel AG 4x4 -Primary Dressing Covered/Secured Dry Gauze,Dry with Gauze & Roll Gauze,Secured with Tape -Aquacel AG 4x4 1 #12 Medial Superior LLE -Ulcer Cleansing Rinsed/ Irrigated with Saline -Other Dressing aquacel extra and kerrax to all wounds -Primary Dressing Covered/Secured Dry Gauze,Dry with Gauze & Roll Gauze,Secured with Tape #11 Medial Inferior LLE -Ulcer Cleansing Rinsed/ Irrigated with Saline -Other Dressing aquacel extra #10 Left Medial Ankle -Ulcer Cleansing Rinsed/ Irrigated with Saline -Other Dressing aquacel extra [Compression Applied] Left -Stockings Yes Vital Signs [Blood Pressure] -Blood Pressure (90/60-120/80 mm Hg) 140/82 H -Blood Pressure Mean (mm Hg) 101 -Source Monitor -Position Semi-Fowlers -Blood Pressure Location Left Arm Pain Scale: 0-10 Numeric [Pain] -Is Patient Pain Free? Yes WC - Visit Discharge [Visit Discharge Information] -Discharge Condition Stable -Ambulatory Status Ambulatory -Transportation Private Auto -Medication Reconcilliation completed No & provided to patient/care provider -Clinical Summary of Care Provided Yes Musculoskeletal: No Muscle Wasting Neurological: Cranial nerves II-XII grossly intact Psych/Mental Status: Normal Affect Debridement Note Post-Debridement Measurements/Treatment WC - Nurse 2 - General Ulcer CM Notes Start: 09/02/20 08:59 Freq: Status: Active Protocol: Activity Type Activity Date Activity User E-Sign Co-Sign Detail Recorded Client Recorded Date Recorded By Document 09/02/20 09:27 MW [id number] 09/02/20 09:42 MW Document 09/09/20 10:20 MW [id number] 09/09/20 10:28 MW Document 09/16/20 09:31 MW [id number] 09/16/20 09:43 MW 09/02/20 09/09/20 09/16/20 09:27 10:20 09:31 Wound Center Nurse 2 #14 LEFT DORSAL FOOT -Time 09:29 10:21 09:31 -Correct Patient Yes Yes Yes -Correct Side, Site, Position Yes Yes Yes -Correct Procedure Yes Yes Yes -Procedure Performed Yes Yes Yes -Type of Procedure Debridement Debridement Debridement -Clinical Debridement Subcutaneous Subcutaneous Subcutaneous -Tissue Removed Subcutaneous Subcutaneous Subcutaneous -Post Debridement (cm) - Length 3.0 2.0 1.5 -Post Debridement (cm) - Width 2.0 1.0 1.1 -Post Debridement (cm) - Depth 0.1 0.1 0.1 -Total Square (Post) (cm) 6.00 2.00 1.65 -Area of Debridement (cm) - Length 3.0 2.0 1.5 -Area of Debridement (cm) - Width 2.0 1.0 1.1 -Total Square (Area) (cm) 6.00 2.00 1.65 -Tunneling No No No -Undermining/Tunneling No No No -Circular Undermining No No No -Wound/Ulcer Outcome Not Healed Not Healed Not Healed -Ulcer Cleansing Rinsed/ Rinsed/ Rinsed/ Irrigated with Irrigated with Irrigated with Saline Saline Saline -Foul Odor after Cleansing No No No -Bioengineered Tissue No No No -Bleeding Controlled with Pressure Pressure Pressure -Offloading No No No -Treatment Response Procedure Procedure Procedure Tolerated Well Tolerated Well Tolerated Well -Debridement - Subq, 1st 20sq cm Yes Yes Yes -Debridement, SubQ, ea addt'l 20sq cm 2 2 2 or part thereof #12 Medial Superior LLE -Time 10:21 09:31 -Correct Patient Yes Yes Yes -Correct Side, Site, Position Yes Yes Yes -Correct Procedure Yes Yes Yes -Procedure Performed Yes Yes Yes -Type of Procedure Debridement Debridement Debridement -Clinical Debridement Subcutaneous Subcutaneous Subcutaneous -Tissue Removed Subcutaneous Subcutaneous Subcutaneous -Post Debridement (cm) - Length 3.0 3.0 3.3 -Post Debridement (cm) - Width 5.0 4.8 5.0 -Post Debridement (cm) - Depth 0.1 0.1 0.1 -Total Square (Post) (cm) 15.00 14.40 16.50 -Area of Debridement (cm) - Length 3.0 3.0 3.3 -Area of Debridement (cm) - Width 5.0 4.8 5.0 -Total Square (Area) (cm) 15.00 14.40 16.50 -Tunneling No No No -Undermining/Tunneling No No No -Circular Undermining No No No -Wound/Ulcer Outcome Not Healed Not Healed Not Healed -Ulcer Cleansing Rinsed/ Rinsed/ Rinsed/ Irrigated with Irrigated with Irrigated with Saline Saline Saline -Foul Odor after Cleansing No No No -Bioengineered Tissue No No No -Bleeding Controlled with Pressure Pressure Pressure -Offloading No No No -Treatment Response Procedure Procedure Tolerated Well Tolerated Well -Debridement - Subq, 1st 20sq cm No No No #11 Medial Inferior LLE -Time 10:22 09:32 -Correct Patient Yes Yes Yes -Correct Side, Site, Position Yes Yes Yes -Correct Procedure Yes Yes Yes -Procedure Performed Yes Yes Yes -Type of Procedure Debridement Debridement Debridement -Clinical Debridement Subcutaneous Subcutaneous Subcutaneous -Tissue Removed Subcutaneous Subcutaneous Subcutaneous -Post Debridement (cm) - Length 3.5 3.0 2.5 -Post Debridement (cm) - Width 6.3 5.5 5.5 -Post Debridement (cm) - Depth 0.1 0.1 0.1 -Total Square (Post) (cm) 22.05 16.50 13.75 -Area of Debridement (cm) - Length 3.5 3.0 2.5 -Area of Debridement (cm) - Width 6.3 5.5 5.5 -Total Square (Area) (cm) 22.05 16.50 13.75 -Tunneling No No No -Undermining/Tunneling No No No -Circular Undermining No No No -Wound/Ulcer Outcome Not Healed Not Healed Not Healed -Ulcer Cleansing Rinsed/ Rinsed/ Rinsed/ Irrigated with Irrigated with Irrigated with Saline Saline Saline -Foul Odor after Cleansing No No No -Bioengineered Tissue No No No -Bleeding Controlled with Pressure Pressure Pressure -Offloading No No No -Treatment Response Procedure Procedure Tolerated Well Tolerated Well -Debridement - Subq, 1st 20sq cm No No No #10 Left Medial Ankle -Time 09:30 10:22 09:32 -Correct Patient Yes Yes Yes -Correct Side, Site, Position Yes Yes Yes -Correct Procedure Yes Yes Yes -Procedure Performed Yes Yes Yes -Type of Procedure Debridement Debridement Debridement -Clinical Debridement Subcutaneous Subcutaneous Subcutaneous -Tissue Removed Subcutaneous Subcutaneous Subcutaneous -Post Debridement (cm) - Length 4.0 4.0 3.5 -Post Debridement (cm) - Width 3.0 3.0 2.5 -Post Debridement (cm) - Depth 0.3 0.3 0.3 -Total Square (Post) (cm) 12.00 12.00 8.75 -Area of Debridement (cm) - Length 4.0 4.0 3.5 -Area of Debridement (cm) - Width 3.0 3.0 2.5 -Total Square (Area) (cm) 12.00 12.00 8.75 -Tunneling No No No -Undermining/Tunneling No No No -Circular Undermining No No No -Wound/Ulcer Outcome Not Healed Not Healed Not Healed -Ulcer Cleansing Rinsed/ Rinsed/ Rinsed/ Irrigated with Irrigated with Irrigated with Saline Saline Saline -Foul Odor after Cleansing No No No -Bioengineered Tissue No No No -Bleeding Controlled with Pressure Pressure Pressure -Offloading No No No -Treatment Response Procedure Tolerated Well -Debridement - Subq, 1st 20sq cm No No No Pain Scale: 0-10 Numeric Is Patient Pain Free? Yes Yes Yes - Nurse 3 - General Ulcer D/C NN Start: 09/02/20 08:59 Freq: Status: Active Protocol: Activity Type Activity Date Activity User E-Sign Co-Sign Detail Recorded Client Recorded Date Recorded By Document 09/02/20 09:53 [facility] [id number] 09/02/20 09:55 [facility] Document 09/09/20 10:34 [facility] [id number] 09/09/20 10:36 [facility] Document 09/16/20 09:56 RB [id number] 09/16/20 09:58 RB 09/02/20 09/09/20 09/16/20 09:53 10:34 09:56 Wound Care Nurse 3 #14 LEFT DORSAL FOOT -Ulcer Cleansing Rinsed/ Rinsed/ Rinsed/ Irrigated with Irrigated with Irrigated with Saline Saline Saline -Foul Odor after Cleansing No No -Primary Dressing Applied Aquacel AG 4x4 Other Aquacel AG 4x4 -Other Dressing aquacel ag -Primary Dressing Covered/Secured with Dry Gauze & Dry Gauze & Dry Gauze,Dry Roll Gauze, Roll Gauze, Gauze & Roll Secured with Secured with Gauze,Secured Tape Tape with Tape -Aquacel AG 4x4 1 1 #12 Medial Superior LLE -Ulcer Cleansing Rinsed/ Rinsed/ Rinsed/ Irrigated with Irrigated with Irrigated with Saline Saline Saline -Foul Odor after Cleansing No No -Primary Dressing Applied Aquacel AG 4x4 Other -Other Dressing aquacel ag aquacel extra and kerrax to all wounds -Primary Dressing Covered/Secured with Dry Gauze & Dry Gauze & Dry Gauze,Dry Roll Gauze, Roll Gauze, Gauze & Roll Secured with Other Gauze,Secured Tape with Tape -Other Covering KERRAMAX abd -Aquacel AG 4x4 0 #11 Medial Inferior LLE -Ulcer Cleansing Rinsed/ Rinsed/ Rinsed/ Irrigated with Irrigated with Irrigated with Saline Saline Saline -Foul Odor after Cleansing No No -Primary Dressing Applied Aquacel AG 4x4 Other -Other Dressing AQUACEL AG aquacel extra -Primary Dressing Covered/Secured with Dry Gauze & Dry Gauze & Roll Gauze, Roll Gauze, Secured with Secured with Tape,Other Tape,Other -Other Covering ABD [email or web address] -Aquacel AG 4x4 0 #10 Left Medial Ankle -Ulcer Cleansing Rinsed/ Rinsed/ Rinsed/ Irrigated with Irrigated with Irrigated with Saline Saline Saline -Foul Odor after Cleansing No No -Primary Dressing Applied Aquacel AG 4x4 Other -Other Dressing AQUACEL AG aquacel extra -Primary Dressing Covered/Secured with Dry Gauze & Dry Gauze & Roll Gauze, Roll Gauze, Secured with Secured with Tape Tape,Other -Other Covering KERRAMAX -Aquacel AG 4x4 0 Left -Stockings Yes -Other PT WILL APPLY PT WILL APPLY OWN COMPRESSION OWN COMPRESSION AT HOME STOCKING @ HOME Treatment Response Procedure Tolerated Well Vital Signs Blood Pressure (90/60-120/80 mm Hg) 140/82 H Blood Pressure Mean (mm Hg) 101 Source Monitor Position Semi-Fowlers Blood Pressure Location Left Arm Pain Scale: 0-10 Numeric Is Patient Pain Free? Yes Yes Yes WC - Visit Discharge Discharge Condition Stable Stable Stable Ambulatory Status Ambulatory Ambulatory Ambulatory Transportation Private Auto Private Auto Private Auto Medication Reconcilliation completed & No provided to patient/care provider Clinical Summary of Care Provided Yes Wound debrided: Left Dorsal foot Type of Debridement: Excisional debridement Anesthesia Used: 4% Lidocaine Solution Depth: Down to and including healthy tissue, in the subcutaneous layer Percentage of wound debrided: 100 Instrument Used: 5mm curette Tissue Removed: Slough and devitalized tissue Severity: Fat Layer Exposed Amount of bleeding with debridement: Mild Bleeding Controlled with: Pressure Patient tolerated procedure well - Additional Wound Wound debrided: Left Medial Ankle Type of Debridement: Excisional debridement Anesthesia Used: 4% Lidocaine Solution Depth: Down to and including healthy tissue, in the subcutaneous layer Percentage of wound debrided: 100 Instrument Used: 5mm curette Tissue Removed: Slough and devitalized tissue Severity: Fat Layer Exposed Amount of bleeding with debridement: Mild Bleeding Controlled with: Pressure Patient tolerated procedure: Patient tolerated procedure well - Additional Wound Wound debrided: Left Guan ( Inferior ) Type of Debridement: Excisional debridement Anesthesia Used: 4% Lidocaine Solution Depth: Down to and including healthy tissue, in the subcutaneous layer Percentage of wound debrided: 100 Instrument Used: 5mm curette Tissue Removed: Slough and devitalized tissue Severity: Fat Layer Exposed Amount of bleeding with debridement: Mild Bleeding Controlled with: Pressure Patient tolerated procedure: Patient tolerated procedure well - Additional Wound Wound debrided: Left Guan ( Superior ) Type of Debridement: Excisional debridement Anesthesia Used: 4% Lidocaine Solution Depth: Down to and including healthy tissue, in the subcutaneous layer Percentage of wound debrided: 100 Instrument Used: 5mm curette Tissue Removed: Slough and devitalized tissue Severity: Fat Layer Exposed Amount of bleeding with debridement: Mild Bleeding Controlled with: Pressure Patient tolerated procedure: Patient tolerated procedure well Assessment/Plan Active Problems Ulcer of left lower extremity with fat layer exposed (Chronic) Delayed wound healing (Chronic) Chronic venous insufficiency (Chronic) Assessment: Chronic left leg ulcer. Venous insufficiency. Leg edema. Delayed ulcer healing. Plan: Debridement done as documented above, procedure was well tolerated. Some improvement noted. Continue Aquacel Ag and keramax. Change daily to twice daily depending on drainage. Cleanse daily. Continue use of compression stockings, leg elevation and exercise. Increased protein intake , protein supplements, zinc and vitamin C also recommended. His questions were answered and he was advised to call with any further questions or concerns. Follow-up in 2 weeks. This note was generated with [employer] dictation software. It may contain incorrect words, spelling, and punctuation that were not noted in checking the note before signing. [id number]: [id number] Lakeisha subq tissue 20 sq cm/< Add On Codes: [id number] Lakeisha subq tissue add-on - Additional Sq Cm debrided, please refer to clinical note
== END 2020-09-27 23:59 ==
LOC: WC 09:00
PROVIDERS: Visit Provider Internal Medicine
DX: I87.2 Venous insufficiency (chronic) (peripheral) (principal); R60.0 Localized edema; L97.822 Non-pressure chronic ulcer of other part of left lower leg with fat layer exposed; L97.322 Non-pressure chronic ulcer of left ankle with fat layer exposed; L97.522 Non-pressure chronic ulcer of other part of left foot with fat layer exposed; M79.605 Pain in left leg
CPT/HCPCS: 11042; 11045; 87070; 87075; 87077; 87186; 87205

== ENCOUNTER 2020-10-21 09:45 | Outpatient (RCR) | payer BC, SELFPAY ==
[2020-09-28 00:23] VITALS: BP 140/82; PULSE 82; RESP 18; TEMP 36.8
[2020-09-30 09:41] VITALS: BP 150/91; PULSE 96; RESP 20; TEMP 36.4; BMI 31.4
[2020-09-30 10:22] VITALS: BP 150/88
--- NOTE | 2020-09-30 11:37 | PN.PCM_ITS ---
(1) Ulcer of left lower extremity with fat layer exposed Status: Chronic Code(s): L97.922 - Non-pressure chronic ulcer of unspecified part of left lower leg with fat layer exposed (2) Chronic venous insufficiency Status: Chronic (3) Chronic venous insufficiency Status: Chronic Code(s): I87.2 - Venous insufficiency (chronic) (peripheral) (4) PVD (peripheral vascular disease) Status: Chronic Code(s): I73.9 - Peripheral vascular disease, unspecified (5) Varicose veins with ulcer and inflammation Status: Chronic Code(s): I83.209 - Varicose veins of unspecified lower extremity with both ulcer of unspecified site and inflammation; L97.909 - Non- pressure chronic ulcer of unspecified part of unspecified lower leg with unspecified severity Type of Wound Date of Service: 09/30/20 Chief Complaint: ulcers to the left lower leg History of Wound: This is a 54-year-old male presents to wound healing center with a long-standing history of chronic venous insufficiency, chronic venous hypertension, lower extremity edema, lower extremity pain, and chronic left lower extremity ulcer. The patient has previously undergone endovenous laser ablation of the left and right great saphenous vein, the small saphenous vein, the left accessory saphenous vein, and an incompetent left calf ocean freight agent vein located 15 cm proximal to the left medial malleolus. He is currently wearing graduated compression stockings which are documented to be 20-30 mmHg compression and these are thigh high. He reports great compliance with use. He is also had previous arterial work-up with no intervention recommended by letter, his vascular surgeon. He denies taking nutritional supplementation. He saw dermatology and had a biopsy of the ulcer site. He also was previously treated by infectious disease for various contaminations and infections. He is not antibiotics at this time nor does he have any redness or odor coming from the wound. He denies fever, chill, nausea, vomiting, loss of appetite. Progress of Wound: Patient reports foul smell. Denies worsening pain or drainage. - Physical Exam Vital Signs Temp Pulse Resp BP 97.5 F L 96 20 H 150/88 H 09/30/20 09:41 09/30/20 09:41 09/30/20 09:41 09/30/20 10:22 General: Alert, Oriented x3, Cooperative, No apparent distress HEENT: Atraumatic, Normocephalic Oral: Moist Mucosa Neck: Supple Lungs: Normal air movement Extremities: No cyanosis, Edema Skin: Ulcer/ Wound Wound Measurements and Assessment WC - Nurse 1 - General Ulcer Measurement Start: 09/30/20 09:41 Freq: Status: Active Protocol: Activity Type Activity Date Activity User E-Sign Co-Sign Detail Recorded Client Recorded Date Recorded By Document 09/30/20 09:41 DL [id number] 09/30/20 09:55 DL 09/30/20 09:41 Wound Center Nurse 1 [Ulcer Assessment] #14 LEFT DORSAL FOOT -Current Size (cm) - Length 1.2 -Current Size (cm) - Width 0.5 -Current Size (cm) - Depth 0.1 -Total Square Cm 0.60 -Photo Taken No -Exudate Amt None Present -Wound Margin Distinct, Outline Attached -Granulation Amt Small (1-33%) -Granulation Quality Red -Necrosis Amt Small (1-33%) -Necrotic Tissue Type Adherent Slough -Structure Exposed N/A -Texture (Ara-wound Skin Appearance) Scarring -Moisture (Ara-wound Skin Appearance Dry/Scaly ) -Color (Ara-wound Skin Appearance) Hemosiderin Staining -Temperature (Ara-wound Skin No Abnormality Appearance) (Pt Warm) -Tenderness on Palpation (Ara-wound No Skin Appearance) -Ulcer Cleansing Wound Cleanser -Foul Odor after Cleansing No -Anesthetic Used 4% Lidocaine Solution #12 Medial Superior LLE -Current Size (cm) - Length 2 -Current Size (cm) - Width 5 -Current Size (cm) - Depth 0.2 -Total Square Cm 10 -Photo Taken No -Exudate Amt Small -Exudate Type Serosanguineous -Wound Margin Distinct, Outline Attached -Granulation Amt Large (67-100%) -Granulation Quality Red -Necrosis Amt Small (1-33%) -Necrotic Tissue Type Adherent Slough -Structure Exposed N/A -Texture (Ara-wound Skin Appearance) Scarring -Moisture (Ara-wound Skin Appearance Dry/Scaly ) -Color (Ara-wound Skin Appearance) Hemosiderin Staining -Temperature (Ara-wound Skin No Abnormality Appearance) (Pt Warm) -Tenderness on Palpation (Ara-wound No Skin Appearance) -Ulcer Cleansing Wound Cleanser -Foul Odor after Cleansing No -Anesthetic Used 4% Lidocaine Solution #11 Medial Inferior LLE -Current Size (cm) - Length 3.6 -Current Size (cm) - Width 4.8 -Current Size (cm) - Depth 0.1 -Total Square Cm 17.28 -Photo Taken No -Exudate Amt Small -Exudate Type Serosanguineous -Wound Margin Thickened -Granulation Amt Large (67-100%) -Granulation Quality Hyper- granulation,Red -Necrosis Amt Small (1-33%) -Necrotic Tissue Type Adherent Slough -Structure Exposed N/A -Texture (Ara-wound Skin Appearance) Scarring -Color (Ara-wound Skin Appearance) Hemosiderin Staining -Temperature (Ara-wound Skin No Abnormality Appearance) (Pt Warm) -Tenderness on Palpation (Ara-wound No Skin Appearance) -Ulcer Cleansing Wound Cleanser -Foul Odor after Cleansing No -Anesthetic Used 4% Lidocaine Solution #10 Left Medial Ankle -Current Size (cm) - Length 3.3 -Current Size (cm) - Width 4.8 -Current Size (cm) - Depth 0.2 -Total Square Cm 15.84 -Photo Taken No -Exudate Amt Small -Exudate Type Serosanguineous -Wound Margin Thickened -Granulation Amt Large (67-100%) -Granulation Quality Red -Necrosis Amt Small (1-33%) -Necrotic Tissue Type Adherent Slough -Structure Exposed N/A -Texture (Ara-wound Skin Appearance) Scarring -Moisture (Ara-wound Skin Appearance Dry/Scaly ) -Color (Ara-wound Skin Appearance) Hemosiderin Staining -Temperature (Ara-wound Skin No Abnormality Appearance) (Pt Warm) -Tenderness on Palpation (Ara-wound No Skin Appearance) -Ulcer Cleansing Wound Cleanser -Foul Odor after Cleansing No -Anesthetic Used 4% Lidocaine Solution [Edema Assessment] -Right Calf (cm) 34.2 -Right Ankle (cm) 24.5 WC - Nurse 2 - General Ulcer CM Notes Start: 09/30/20 09:41 Freq: Status: Active Protocol: Activity Type Activity Date Activity User E-Sign Co-Sign Detail Recorded Client Recorded Date Recorded By Document 09/30/20 10:04 MW [id number] 09/30/20 10:18 MW 09/30/20 10:04 Wound Center Nurse 2 [Procedure/Treatment] #14 LEFT DORSAL FOOT -Time 10:04 -Correct Patient Yes -Correct Side, Site, Position Yes -Correct Procedure Yes -Procedure Performed Yes -Type of Procedure Debridement -Clinical Debridement Subcutaneous -Tissue Removed Subcutaneous -Post Debridement (cm) - Length 1.5 -Post Debridement (cm) - Width 0.6 -Post Debridement (cm) - Depth 0.1 -Total Square (Post) (cm) 0.90 -Area of Debridement (cm) - Length 1.5 -Area of Debridement (cm) - Width 0.6 -Total Square (Area) (cm) 0.90 -Tunneling No -Undermining/Tunneling No -Circular Undermining No -Wound/Ulcer Outcome Not Healed -Ulcer Cleansing Rinsed/ Irrigated with Saline -Foul Odor after Cleansing No -Bioengineered Tissue No -Bleeding Controlled with Pressure -Offloading No -Treatment Response Procedure Tolerated Well -Debridement - Subq, 1st 20sq cm Yes #12 Medial Superior LLE -Time 10:05 -Correct Patient Yes -Correct Side, Site, Position Yes -Correct Procedure Yes -Procedure Performed Yes -Type of Procedure Debridement -Clinical Debridement Subcutaneous -Tissue Removed Subcutaneous -Post Debridement (cm) - Length 2.8 -Post Debridement (cm) - Width 4.8 -Post Debridement (cm) - Depth 0.1 -Total Square (Post) (cm) 13.44 -Area of Debridement (cm) - Length 2.8 -Area of Debridement (cm) - Width 4.8 -Total Square (Area) (cm) 13.44 -Tunneling No -Undermining/Tunneling No -Circular Undermining No -Wound/Ulcer Outcome Not Healed -Ulcer Cleansing Rinsed/ Irrigated with Saline -Foul Odor after Cleansing No -Bioengineered Tissue No -Bleeding Controlled with Pressure -Offloading No -Treatment Response Procedure Tolerated Well -Debridement - Subq, 1st 20sq cm No #11 Medial Inferior LLE -Time 10:05 -Correct Patient Yes -Correct Side, Site, Position Yes -Correct Procedure Yes -Procedure Performed Yes -Type of Procedure Debridement -Clinical Debridement Subcutaneous -Tissue Removed Subcutaneous -Post Debridement (cm) - Length 3.0 -Post Debridement (cm) - Width 5.5 -Post Debridement (cm) - Depth 0.1 -Total Square (Post) (cm) 16.50 -Area of Debridement (cm) - Length 3.0 -Area of Debridement (cm) - Width 5.5 -Total Square (Area) (cm) 16.50 -Tunneling No -Undermining/Tunneling No -Circular Undermining No -Wound/Ulcer Outcome Not Healed -Ulcer Cleansing Rinsed/ Irrigated with Saline -Foul Odor after Cleansing No -Bioengineered Tissue No -Bleeding Controlled with Pressure -Offloading No -Treatment Response Procedure Tolerated Well -Debridement - Subq, 1st 20sq cm No #10 Left Medial Ankle -Time 10:05 -Correct Patient Yes -Correct Side, Site, Position Yes -Correct Procedure Yes -Procedure Performed Yes -Type of Procedure Debridement -Clinical Debridement Subcutaneous -Tissue Removed Subcutaneous -Post Debridement (cm) - Length 3.5 -Post Debridement (cm) - Width 3.1 -Post Debridement (cm) - Depth 0.2 -Total Square (Post) (cm) 10.85 -Area of Debridement (cm) - Length 3.5 -Area of Debridement (cm) - Width 3.1 -Total Square (Area) (cm) 10.85 -Tunneling No -Undermining/Tunneling No -Circular Undermining No -Wound/Ulcer Outcome Not Healed -Ulcer Cleansing Rinsed/ Irrigated with Saline -Foul Odor after Cleansing No -Bioengineered Tissue No -Bleeding Controlled with Pressure -Offloading No -Treatment Response Procedure Tolerated Well -Debridement - Subq, 1st 20sq cm No [See Physician Procedure note for Specifics] Pain Scale: 0-10 Numeric [Pain] -Is Patient Pain Free? Yes WC - Nurse 3 - General Ulcer D/C NN Start: 09/30/20 09:41 Freq: Status: Active Protocol: Activity Type Activity Date Activity User E-Sign Co-Sign Detail Recorded Client Recorded Date Recorded By Document 09/30/20 10:22 RB [id number] 09/30/20 10:24 RB 09/30/20 10:22 Wound Care Nurse 3 [Wound Dressing] #14 LEFT DORSAL FOOT -Ulcer Cleansing Rinsed/ Irrigated with Saline -Other Dressing aquacel ag -Primary Dressing Covered/Secured Dry Gauze, with Secured with Tape #12 Medial Superior LLE -Ulcer Cleansing Rinsed/ Irrigated with Saline -Other Dressing aquacel ag and kerrmax -Primary Dressing Covered/Secured Dry Gauze, with Secured with Tape #11 Medial Inferior LLE -Ulcer Cleansing Rinsed/ Irrigated with Saline -Other Dressing aquacel ag and kerramax -Primary Dressing Covered/Secured Dry Gauze, with Secured with Tape #10 Left Medial Ankle -Ulcer Cleansing Rinsed/ Irrigated with Saline -Other Dressing aquacel ag and kerramax [Post Procedure Tolerated] -Treatment Response Procedure Tolerated Well Vital Signs [Blood Pressure] -Blood Pressure (90/60-120/80 mm Hg) 150/88 H -Blood Pressure Mean (mm Hg) 108 -Source Monitor -Position Sitting -Blood Pressure Location Left Arm Pain Scale: 0-10 Numeric [Pain] -Is Patient Pain Free? Yes Teaching: Wound Center [Wound Center Education] (Items with an * have Printed Materials Available- Please identify what is given to patient under the Teaching materials given to patient and caregiver Section. Dressing your wound w/hydroferra blue -Person Taught Patient -Teaching Method Discussion, Demonstration -Response to teaching Verbalize understanding WC - Visit Discharge [Visit Discharge Information] -Discharge Condition Stable -Ambulatory Status Ambulatory -Transportation Private Auto -Medication Reconcilliation completed No & provided to patient/care provider -Clinical Summary of Care Provided Yes Musculoskeletal: No Muscle Wasting Neurological: Cranial nerves II-XII grossly intact Psych/Mental Status: Normal Affect Debridement Note Post-Debridement Measurements/Treatment WC - Nurse 2 - General Ulcer CM Notes Start: 09/30/20 09:41 Freq: Status: Active Protocol: Activity Type Activity Date Activity User E-Sign Co-Sign Detail Recorded Client Recorded Date Recorded By Document 09/30/20 10:04 MW [id number] 09/30/20 10:18 MW 09/30/20 10:04 Wound Center Nurse 2 #14 LEFT DORSAL FOOT -Time 10:04 -Correct Patient Yes -Correct Side, Site, Position Yes -Correct Procedure Yes -Procedure Performed Yes -Type of Procedure Debridement -Clinical Debridement Subcutaneous -Tissue Removed Subcutaneous -Post Debridement (cm) - Length 1.5 -Post Debridement (cm) - Width 0.6 -Post Debridement (cm) - Depth 0.1 -Total Square (Post) (cm) 0.90 -Area of Debridement (cm) - Length 1.5 -Area of Debridement (cm) - Width 0.6 -Total Square (Area) (cm) 0.90 -Tunneling No -Undermining/Tunneling No -Circular Undermining No -Wound/Ulcer Outcome Not Healed -Ulcer Cleansing Rinsed/ Irrigated with Saline -Foul Odor after Cleansing No -Bioengineered Tissue No -Bleeding Controlled with Pressure -Offloading No -Treatment Response Procedure Tolerated Well -Debridement - Subq, 1st 20sq cm Yes #12 Medial Superior LLE -Time 10:05 -Correct Patient Yes -Correct Side, Site, Position Yes -Correct Procedure Yes -Procedure Performed Yes -Type of Procedure Debridement -Clinical Debridement Subcutaneous -Tissue Removed Subcutaneous -Post Debridement (cm) - Length 2.8 -Post Debridement (cm) - Width 4.8 -Post Debridement (cm) - Depth 0.1 -Total Square (Post) (cm) 13.44 -Area of Debridement (cm) - Length 2.8 -Area of Debridement (cm) - Width 4.8 -Total Square (Area) (cm) 13.44 -Tunneling No -Undermining/Tunneling No -Circular Undermining No -Wound/Ulcer Outcome Not Healed -Ulcer Cleansing Rinsed/ Irrigated with Saline -Foul Odor after Cleansing No -Bioengineered Tissue No -Bleeding Controlled with Pressure -Offloading No -Treatment Response Procedure Tolerated Well -Debridement - Subq, 1st 20sq cm No #11 Medial Inferior LLE -Time 10:05 -Correct Patient Yes -Correct Side, Site, Position Yes -Correct Procedure Yes -Procedure Performed Yes -Type of Procedure Debridement -Clinical Debridement Subcutaneous -Tissue Removed Subcutaneous -Post Debridement (cm) - Length 3.0 -Post Debridement (cm) - Width 5.5 -Post Debridement (cm) - Depth 0.1 -Total Square (Post) (cm) 16.50 -Area of Debridement (cm) - Length 3.0 -Area of Debridement (cm) - Width 5.5 -Total Square (Area) (cm) 16.50 -Tunneling No -Undermining/Tunneling No -Circular Undermining No -Wound/Ulcer Outcome Not Healed -Ulcer Cleansing Rinsed/ Irrigated with Saline -Foul Odor after Cleansing No -Bioengineered Tissue No -Bleeding Controlled with Pressure -Offloading No -Treatment Response Procedure Tolerated Well -Debridement - Subq, 1st 20sq cm No #10 Left Medial Ankle -Time 10:05 -Correct Patient Yes -Correct Side, Site, Position Yes -Correct Procedure Yes -Procedure Performed Yes -Type of Procedure Debridement -Clinical Debridement Subcutaneous -Tissue Removed Subcutaneous -Post Debridement (cm) - Length 3.5 -Post Debridement (cm) - Width 3.1 -Post Debridement (cm) - Depth 0.2 -Total Square (Post) (cm) 10.85 -Area of Debridement (cm) - Length 3.5 -Area of Debridement (cm) - Width 3.1 -Total Square (Area) (cm) 10.85 -Tunneling No -Undermining/Tunneling No -Circular Undermining No -Wound/Ulcer Outcome Not Healed -Ulcer Cleansing Rinsed/ Irrigated with Saline -Foul Odor after Cleansing No -Bioengineered Tissue No -Bleeding Controlled with Pressure -Offloading No -Treatment Response Procedure Tolerated Well -Debridement - Subq, 1st 20sq cm No Pain Scale: 0-10 Numeric Is Patient Pain Free? Yes - Nurse 3 - General Ulcer D/C NN Start: 09/30/20 09:41 Freq: Status: Active Protocol: Activity Type Activity Date Activity User E-Sign Co-Sign Detail Recorded Client Recorded Date Recorded By Document 09/30/20 10:22 [id number] 09/30/20 10:24 09/30/20 10:22 Wound Care Nurse 3 #14 LEFT DORSAL FOOT -Ulcer Cleansing Rinsed/ Irrigated with Saline -Other Dressing aquacel ag -Primary Dressing Covered/Secured with Dry Gauze, Secured with Tape #12 Medial Superior LLE -Ulcer Cleansing Rinsed/ Irrigated with Saline -Other Dressing aquacel ag and kerrmax -Primary Dressing Covered/Secured with Dry Gauze, Secured with Tape #11 Medial Inferior LLE -Ulcer Cleansing Rinsed/ Irrigated with Saline -Other Dressing aquacel ag and kerramax -Primary Dressing Covered/Secured with Dry Gauze, Secured with Tape #10 Left Medial Ankle -Ulcer Cleansing Rinsed/ Irrigated with Saline -Other Dressing aquacel ag and kerramax Treatment Response Procedure Tolerated Well Vital Signs Blood Pressure (90/60-120/80 mm Hg) 150/88 H Blood Pressure Mean (mm Hg) 108 Source Monitor Position Sitting Blood Pressure Location Left Arm Pain Scale: 0-10 Numeric Is Patient Pain Free? Yes Teaching: Wound Center Dressing your wound w/hydroferra blue -Person Taught Patient -Teaching Method Discussion, Demonstration -Response to teaching Verbalize understanding WC - Visit Discharge Discharge Condition Stable Ambulatory Status Ambulatory Transportation Private Auto Medication Reconcilliation completed & No provided to patient/care provider Clinical Summary of Care Provided Yes Wound debrided: Left dorsal foot Type of Debridement: Excisional debridement Anesthesia Used: 4% Lidocaine Solution Depth: Down to and including healthy tissue, in the subcutaneous layer Percentage of wound debrided: 100 Instrument Used: 3mm curette Tissue Removed: Slough and devitalized tissue Severity: Fat Layer Exposed Amount of bleeding with debridement: Mild Bleeding Controlled with: Pressure Patient tolerated procedure well - Additional Wound Wound debrided: Left medial ankle Type of Debridement: Excisional debridement Anesthesia Used: 4% Lidocaine Solution Depth: Down to and including healthy tissue, in the subcutaneous layer Percentage of wound debrided: 100 Instrument Used: 5mm curette Tissue Removed: Slough and devitalized tissue Severity: Fat Layer Exposed Amount of bleeding with debridement: Mild Bleeding Controlled with: Pressure Patient tolerated procedure: Patient tolerated procedure well - Additional Wound Wound debrided: Left lower extremity (inferior) Type of Debridement: Excisional debridement Anesthesia Used: 4% Lidocaine Solution Depth: Down to and including healthy tissue, in the subcutaneous layer Percentage of wound debrided: 100 Instrument Used: 5mm curette Tissue Removed: Slough and devitalized tissue Severity: Fat Layer Exposed Amount of bleeding with debridement: Mild Bleeding Controlled with: Pressure Patient tolerated procedure: Patient tolerated procedure well - Additional Wound Wound debrided: Lower extremity (superior) Type of Debridement: Excisional debridement Anesthesia Used: 4% Lidocaine Solution Depth: Down to and including healthy tissue, in the subcutaneous layer Percentage of wound debrided: 100 Instrument Used: 5mm curette Tissue Removed: Slough and devitalized tissue Severity: Fat Layer Exposed Amount of bleeding with debridement: Mild Bleeding Controlled with: Pressure Patient tolerated procedure: Patient tolerated procedure well Assessment/Plan Active Problems Ulcer of left lower extremity with fat layer exposed (Chronic) PVD (peripheral vascular disease) (Chronic) Chronic venous insufficiency (Chronic) Chronic venous insufficiency (Chronic) Varicose veins with ulcer and inflammation (Chronic) Assessment: Chronic left leg ulcer. Venous insufficiency. Leg edema. Delayed ulcer healing. Plan: Debridement done as documented above, procedure was well tolerated. Hyper granulation tissue and patient also reports increased foul smell. Culture taken. Continue Aquacel Ag and keramax. Change daily to twice daily depending on drainage. Cleanse daily. Continue use of compression stockings, leg elevation and exercise. Increased protein intake , protein supplements, zinc and vitamin C also recommended. His questions were answered and he was advised to call with any further questions or concerns. Follow-up in 1 week. This note was generated with [employer] software. It may contain incorrect words, spelling, and punctuation that were not noted in checking the note before signing. [id number]: [id number] Lakeisha subq tissue 20 sq cm/< Add On Codes: [id number] Lakeisha subq tissue add-on - Additional square centimeter debrided, please refer to clinical note.
[2020-10-14 09:36] VITALS: BP 127/84; PULSE 82; TEMP 35.8; BMI 31.4
[2020-10-14 10:30] VITALS: BP 132/80
--- NOTE | 2020-10-14 11:27 | PCM.WC.PN ---
(1) Ulcer of left lower extremity with fat layer exposed Status: Chronic Code(s): L97.922 - Non-pressure chronic ulcer of unspecified part of left lower leg with fat layer exposed (2) Chronic venous insufficiency Status: Chronic (3) Chronic venous insufficiency Status: Chronic Code(s): I87.2 - Venous insufficiency (chronic) (peripheral) (4) PVD (peripheral vascular disease) Status: Chronic Code(s): I73.9 - Peripheral vascular disease, unspecified (5) Varicose veins with ulcer and inflammation Status: Chronic Code(s): I83.209 - Varicose veins of unspecified lower extremity with both ulcer of unspecified site and inflammation; L97.909 - Non-pressure chronic ulcer of unspecified part of unspecified lower leg with unspecified severity Type of Wound Date of Service: 10/14/20 Chief Complaint: ulcers to the left lower leg History of Wound: This is a 54-year-old male presents to wound healing center with a long-standing history of chronic venous insufficiency, chronic venous hypertension, lower extremity edema, lower extremity pain, and chronic left lower extremity ulcer. The patient has previously undergone endovenous laser ablation of the left and right great saphenous vein, the small saphenous vein, the left accessory saphenous vein, and an incompetent left calf fibrous wallboard inspector vein located 15 cm proximal to the left medial malleolus. He is currently wearing graduated compression stockings which are documented to be 20-30 mmHg compression and these are thigh high. He reports great compliance with use. He is also had previous arterial work-up with no intervention recommended by letter, his vascular surgeon. He denies taking nutritional supplementation. He saw dermatology and had a biopsy of the ulcer site. He also was previously treated by infectious disease for various contaminations and infections. He is not antibiotics at this time nor does he have any redness or odor coming from the wound. He denies fever, chill, nausea, vomiting, loss of appetite. Progress of Wound: Started on clindamycin last week due to suspected wound infection and culture suggestive of MRSA. Patient reports increased watery bowel movements on clindamycin. Has had 1 week of it. - Physical Exam Vital Signs Temp Pulse Resp BP 96.5 F L 82 20 H 132/80 H 10/14/20 09:36 10/14/20 09:36 09/30/20 09:41 10/14/20 10:30 General: Alert, Oriented x3, Cooperative, No apparent distress HEENT: Atraumatic, Normocephalic Oral: Moist Mucosa Neck: Supple Lungs: Normal air movement Abdomen: Non Tender, Obese Extremities: No cyanosis, Edema Skin: Ulcer/ Wound Wound Measurements and Assessment WC - Nurse 1 - General Ulcer Measurement Start: 09/30/20 09:41 Freq: Status: Active Protocol: Activity Type Activity Date Activity User E-Sign Co-Sign Detail Recorded Client Recorded Date Recorded By Document 10/14/20 09:36 REINA [id number] 10/14/20 09:51 REINA 10/14/20 09:36 Wound Center Nurse 1 [Ulcer Assessment] #14 LEFT DORSAL FOOT -Current Size (cm) - Length 0.9 -Current Size (cm) - Width 0.4 -Current Size (cm) - Depth 0.1 -Total Square Cm 0.36 -Exudate Amt Medium -Exudate Type Serosanguineous -Wound Margin Distinct, Outline Attached -Granulation Amt Medium (34-66%) -Granulation Quality Red -Necrosis Amt Medium (34-66%) -Necrotic Tissue Type Adherent Slough -Texture (Ara-wound Skin Appearance) Assessed, Scarring -Moisture (Ara-wound Skin Appearance Assessed,Dry/ ) Scaly -Temperature (Ara-wound Skin No Abnormality Appearance) (Pt Warm) -Tenderness on Palpation (Ara-wound No Skin Appearance) -Ulcer Cleansing Rinsed/ Irrigated with Saline -Foul Odor after Cleansing No -Anesthetic Used 4% Lidocaine Solution #12 Medial Superior LLE -Current Size (cm) - Length 2 -Current Size (cm) - Width 4.5 -Current Size (cm) - Depth 0.2 -Total Square Cm 9.0 -Exudate Amt Medium -Exudate Type Serosanguineous -Wound Margin Distinct, Outline Attached -Granulation Amt Medium (34-66%) -Granulation Quality Red -Necrosis Amt Medium (34-66%) -Necrotic Tissue Type Adherent Slough -Texture (Ara-wound Skin Appearance) Assessed, Scarring -Moisture (Ara-wound Skin Appearance Assessed,Dry/ ) Scaly -Color (Ara-wound Skin Appearance) No Abnormality, Assessed -Temperature (Ara-wound Skin No Abnormality Appearance) (Pt Warm) -Tenderness on Palpation (Ara-wound No Skin Appearance) -Ulcer Cleansing Rinsed/ Irrigated with Saline -Foul Odor after Cleansing No -Anesthetic Used 4% Lidocaine Solution #11 Medial Inferior LLE -Current Size (cm) - Length 2.6 -Current Size (cm) - Width 5 -Current Size (cm) - Depth 0.2 -Total Square Cm 13.0 -Exudate Amt Medium -Exudate Type Serosanguineous -Wound Margin Distinct, Outline Attached -Granulation Amt Medium (34-66%) -Granulation Quality Red -Necrosis Amt Medium (34-66%) -Necrotic Tissue Type Adherent Slough -Texture (Ara-wound Skin Appearance) Assessed, Scarring -Moisture (Ara-wound Skin Appearance Assessed,Dry/ ) Scaly -Color (Ara-wound Skin Appearance) No Abnormality, Assessed -Temperature (Ara-wound Skin No Abnormality Appearance) (Pt Warm) -Tenderness on Palpation (Ara-wound No Skin Appearance) -Ulcer Cleansing Rinsed/ Irrigated with Saline -Foul Odor after Cleansing No -Anesthetic Used 4% Lidocaine Solution #10 Left Medial Ankle -Current Size (cm) - Length 3.5 -Current Size (cm) - Width 3.4 -Current Size (cm) - Depth 0.2 -Total Square Cm 11.90 -Exudate Amt Medium -Exudate Type Serosanguineous -Wound Margin Distinct, Outline Attached -Granulation Amt Medium (34-66%) -Granulation Quality Red -Necrosis Amt Medium (34-66%) -Necrotic Tissue Type Adherent Slough -Texture (Ara-wound Skin Appearance) Assessed, Scarring -Moisture (Ara-wound Skin Appearance Assessed,Dry/ ) Scaly -Color (Ara-wound Skin Appearance) No Abnormality, Assessed -Temperature (Ara-wound Skin No Abnormality Appearance) (Pt Warm) -Tenderness on Palpation (Ara-wound No Skin Appearance) -Ulcer Cleansing Rinsed/ Irrigated with Saline -Foul Odor after Cleansing No -Anesthetic Used 4% Lidocaine Solution [Edema Assessment] -Left Calf (cm) 37 -Left Ankle (cm) 26 WC - Nurse 2 - General Ulcer CM Notes Start: 09/30/20 09:41 Freq: Status: Active Protocol: Activity Type Activity Date Activity User E-Sign Co-Sign Detail Recorded Client Recorded Date Recorded By Document 10/14/20 10:03 MW [id number] 10/14/20 10:16 MW 10/14/20 10:03 Wound Center Nurse 2 [Procedure/Treatment] #14 LEFT DORSAL FOOT -Time 10:04 -Correct Patient Yes -Correct Side, Site, Position Yes -Correct Procedure Yes -Procedure Performed No -Type of Procedure Debridement -Clinical Debridement Subcutaneous -Tissue Removed Subcutaneous -Post Debridement (cm) - Length 0.7 -Post Debridement (cm) - Width 0.3 -Post Debridement (cm) - Depth 0.1 -Total Square (Post) (cm) 0.21 -Area of Debridement (cm) - Length 0.7 -Area of Debridement (cm) - Width 0.3 -Total Square (Area) (cm) 0.21 -Tunneling No -Undermining/Tunneling No -Circular Undermining No -Wound/Ulcer Outcome Not Healed -Ulcer Cleansing Rinsed/ Irrigated with Saline -Foul Odor after Cleansing No -Bioengineered Tissue No -Bleeding Controlled with Pressure -Offloading No -Treatment Response Procedure Tolerated Well -Debridement - Subq, 1st 20sq cm Yes -Debridement, SubQ, ea addt'l 20sq cm 2 or part thereof #12 Medial Superior LLE -Time 10:06 -Correct Patient Yes -Correct Side, Site, Position Yes -Correct Procedure Yes -Procedure Performed Yes -Type of Procedure Debridement -Clinical Debridement Subcutaneous -Tissue Removed Subcutaneous -Post Debridement (cm) - Length 3.0 -Post Debridement (cm) - Width 5.5 -Post Debridement (cm) - Depth 0.1 -Total Square (Post) (cm) 16.50 -Area of Debridement (cm) - Length 3.0 -Area of Debridement (cm) - Width 5.5 -Total Square (Area) (cm) 16.50 -Tunneling No -Undermining/Tunneling No -Circular Undermining No -Wound/Ulcer Outcome Not Healed -Ulcer Cleansing Rinsed/ Irrigated with Saline -Foul Odor after Cleansing No -Bioengineered Tissue No -Bleeding Controlled with Pressure -Offloading No -Treatment Response Procedure Tolerated Well -Debridement - Subq, 1st 20sq cm No #11 Medial Inferior LLE -Time 10:06 -Correct Patient Yes -Correct Side, Site, Position Yes -Correct Procedure Yes -Procedure Performed Yes -Type of Procedure Debridement -Clinical Debridement Subcutaneous -Tissue Removed Subcutaneous -Post Debridement (cm) - Length 3.0 -Post Debridement (cm) - Width 5.0 -Post Debridement (cm) - Depth 0.1 -Total Square (Post) (cm) 15.00 -Area of Debridement (cm) - Length 3.0 -Area of Debridement (cm) - Width 5.0 -Total Square (Area) (cm) 15.00 -Tunneling No -Undermining/Tunneling No -Circular Undermining No -Wound/Ulcer Outcome Not Healed -Ulcer Cleansing Rinsed/ Irrigated with Saline -Foul Odor after Cleansing No -Bioengineered Tissue No -Bleeding Controlled with Pressure -Offloading No -Treatment Response Procedure Tolerated Well -Debridement - Subq, 1st 20sq cm No #10 Left Medial Ankle -Time 10:07 -Correct Patient Yes -Correct Side, Site, Position Yes -Correct Procedure Yes -Procedure Performed Yes -Type of Procedure Debridement -Clinical Debridement Subcutaneous -Tissue Removed Subcutaneous -Post Debridement (cm) - Length 3.9 -Post Debridement (cm) - Width 3.5 -Post Debridement (cm) - Depth 0.2 -Total Square (Post) (cm) 13.65 -Area of Debridement (cm) - Length 3.9 -Area of Debridement (cm) - Width 3.5 -Total Square (Area) (cm) 13.65 -Tunneling No -Undermining/Tunneling No -Circular Undermining No -Wound/Ulcer Outcome Not Healed -Ulcer Cleansing Rinsed/ Irrigated with Saline -Foul Odor after Cleansing No -Bioengineered Tissue No -Bleeding Controlled with Pressure -Offloading No -Treatment Response Procedure Tolerated Well -Debridement - Subq, 1st 20sq cm No [See Physician Procedure note for Specifics] Pain Scale: 0-10 Numeric [Pain] -Is Patient Pain Free? Yes WC - Nurse 3 - General Ulcer D/C NN Start: 09/30/20 09:41 Freq: Status: Active Protocol: Activity Type Activity Date Activity User E-Sign Co-Sign Detail Recorded Client Recorded Date Recorded By Document 10/14/20 10:30 RB [id number] 10/14/20 10:32 RB 10/14/20 10:30 Wound Care Nurse 3 [Wound Dressing] #14 LEFT DORSAL FOOT -Other Dressing aquacel ag, kerramax -Primary Dressing Covered/Secured Dry Gauze & with Roll Gauze, Secured with Tape #12 Medial Superior LLE -Other Dressing aquacel ag -Primary Dressing Covered/Secured Dry Gauze & with Roll Gauze #11 Medial Inferior LLE -Ulcer Cleansing Wound Cleanser -Other Dressing aquacel ag #10 Left Medial Ankle -Ulcer Cleansing Wound Cleanser -Other Dressing aquacel ag -Primary Dressing Covered/Secured Dry Gauze & with Roll Gauze [Compression Applied] Right -Stockings Yes Left -Stockings Yes Vital Signs [Blood Pressure] -Blood Pressure (90/60-120/80 mm Hg) 132/80 H -Blood Pressure Mean (mm Hg) 97 -Source Monitor -Position Sitting -Blood Pressure Location Right Arm Pain Scale: 0-10 Numeric [Pain] -Is Patient Pain Free? Yes WC - Visit Discharge [Visit Discharge Information] -Discharge Condition Stable -Ambulatory Status Ambulatory -Transportation Private Auto -Medication Reconcilliation completed No & provided to patient/care provider -Clinical Summary of Care Provided Yes Musculoskeletal: No Muscle Wasting Neurological: Cranial nerves II-XII grossly intact Psych/Mental Status: Normal Affect Debridement Note Post-Debridement Measurements/Treatment WC - Nurse 2 - General Ulcer CM Notes Start: 09/30/20 09:41 Freq: Status: Active Protocol: Activity Type Activity Date Activity User E-Sign Co-Sign Detail Recorded Client Recorded Date Recorded By Document 09/30/20 10:04 MW [id number] 09/30/20 10:18 MW Document 10/14/20 10:03 MW [id number] 10/14/20 10:16 MW 09/30/20 10/14/20 10:04 10:03 Wound Center Nurse 2 #14 LEFT DORSAL FOOT -Time 10:04 10:04 -Correct Patient Yes Yes -Correct Side, Site, Position Yes Yes -Correct Procedure Yes Yes -Procedure Performed Yes No -Type of Procedure Debridement Debridement -Clinical Debridement Subcutaneous Subcutaneous -Tissue Removed Subcutaneous Subcutaneous -Post Debridement (cm) - Length 1.5 0.7 -Post Debridement (cm) - Width 0.6 0.3 -Post Debridement (cm) - Depth 0.1 0.1 -Total Square (Post) (cm) 0.90 0.21 -Area of Debridement (cm) - Length 1.5 0.7 -Area of Debridement (cm) - Width 0.6 0.3 -Total Square (Area) (cm) 0.90 0.21 -Tunneling No No -Undermining/Tunneling No No -Circular Undermining No No -Wound/Ulcer Outcome Not Healed Not Healed -Ulcer Cleansing Rinsed/ Rinsed/ Irrigated with Irrigated with Saline Saline -Foul Odor after Cleansing No No -Bioengineered Tissue No No -Bleeding Controlled with Pressure Pressure -Offloading No No -Treatment Response Procedure Procedure Tolerated Well Tolerated Well -Debridement - Subq, 1st 20sq cm Yes Yes -Debridement, SubQ, ea addt'l 20sq cm 2 2 or part thereof #12 Medial Superior LLE -Time 10:05 10:06 -Correct Patient Yes Yes -Correct Side, Site, Position Yes Yes -Correct Procedure Yes Yes -Procedure Performed Yes Yes -Type of Procedure Debridement Debridement -Clinical Debridement Subcutaneous Subcutaneous -Tissue Removed Subcutaneous Subcutaneous -Post Debridement (cm) - Length 2.8 3.0 -Post Debridement (cm) - Width 4.8 5.5 -Post Debridement (cm) - Depth 0.1 0.1 -Total Square (Post) (cm) 13.44 16.50 -Area of Debridement (cm) - Length 2.8 3.0 -Area of Debridement (cm) - Width 4.8 5.5 -Total Square (Area) (cm) 13.44 16.50 -Tunneling No No -Undermining/Tunneling No No -Circular Undermining No No -Wound/Ulcer Outcome Not Healed Not Healed -Ulcer Cleansing Rinsed/ Rinsed/ Irrigated with Irrigated with Saline Saline -Foul Odor after Cleansing No No -Bioengineered Tissue No No -Bleeding Controlled with Pressure Pressure -Offloading No No -Treatment Response Procedure Procedure Tolerated Well Tolerated Well -Debridement - Subq, 1st 20sq cm No No #11 Medial Inferior LLE -Time 10:05 10:06 -Correct Patient Yes Yes -Correct Side, Site, Position Yes Yes -Correct Procedure Yes Yes -Procedure Performed Yes Yes -Type of Procedure Debridement Debridement -Clinical Debridement Subcutaneous Subcutaneous -Tissue Removed Subcutaneous Subcutaneous -Post Debridement (cm) - Length 3.0 3.0 -Post Debridement (cm) - Width 5.5 5.0 -Post Debridement (cm) - Depth 0.1 0.1 -Total Square (Post) (cm) 16.50 15.00 -Area of Debridement (cm) - Length 3.0 3.0 -Area of Debridement (cm) - Width 5.5 5.0 -Total Square (Area) (cm) 16.50 15.00 -Tunneling No No -Undermining/Tunneling No No -Circular Undermining No No -Wound/Ulcer Outcome Not Healed Not Healed -Ulcer Cleansing Rinsed/ Rinsed/ Irrigated with Irrigated with Saline Saline -Foul Odor after Cleansing No No -Bioengineered Tissue No No -Bleeding Controlled with Pressure Pressure -Offloading No No -Treatment Response Procedure Procedure Tolerated Well Tolerated Well -Debridement - Subq, 1st 20sq cm No No #10 Left Medial Ankle -Time 10:05 10:07 -Correct Patient Yes Yes -Correct Side, Site, Position Yes Yes -Correct Procedure Yes Yes -Procedure Performed Yes Yes -Type of Procedure Debridement Debridement -Clinical Debridement Subcutaneous Subcutaneous -Tissue Removed Subcutaneous Subcutaneous -Post Debridement (cm) - Length 3.5 3.9 -Post Debridement (cm) - Width 3.1 3.5 -Post Debridement (cm) - Depth 0.2 0.2 -Total Square (Post) (cm) 10.85 13.65 -Area of Debridement (cm) - Length 3.5 3.9 -Area of Debridement (cm) - Width 3.1 3.5 -Total Square (Area) (cm) 10.85 13.65 -Tunneling No No -Undermining/Tunneling No No -Circular Undermining No No -Wound/Ulcer Outcome Not Healed Not Healed -Ulcer Cleansing Rinsed/ Rinsed/ Irrigated with Irrigated with Saline Saline -Foul Odor after Cleansing No No -Bioengineered Tissue No No -Bleeding Controlled with Pressure Pressure -Offloading No No -Treatment Response Procedure Procedure Tolerated Well Tolerated Well -Debridement - Subq, 1st 20sq cm No No Pain Scale: 0-10 Numeric Is Patient Pain Free? Yes Yes - Nurse 3 - General Ulcer D/C NN Start: 09/30/20 09:41 Freq: Status: Active Protocol: Activity Type Activity Date Activity User E-Sign Co-Sign Detail Recorded Client Recorded Date Recorded By Document 09/30/20 10:22 RB [id number] 09/30/20 10:24 RB Document 10/14/20 10:30 RB [id number] 10/14/20 10:32 RB 09/30/20 10/14/20 10:22 10:30 Wound Care Nurse 3 #14 LEFT DORSAL FOOT -Ulcer Cleansing Rinsed/ Irrigated with Saline -Other Dressing aquacel ag aquacel ag, kerramax -Primary Dressing Covered/Secured with Dry Gauze, Dry Gauze & Secured with Roll Gauze, Tape Secured with Tape #12 Medial Superior LLE -Ulcer Cleansing Rinsed/ Irrigated with Saline -Other Dressing aquacel ag and aquacel ag kerrmax -Primary Dressing Covered/Secured with Dry Gauze, Dry Gauze & Secured with Roll Gauze Tape #11 Medial Inferior LLE -Ulcer Cleansing Rinsed/ Wound Cleanser Irrigated with Saline -Other Dressing aquacel ag and aquacel ag kerramax -Primary Dressing Covered/Secured with Dry Gauze, Secured with Tape #10 Left Medial Ankle -Ulcer Cleansing Rinsed/ Wound Cleanser Irrigated with Saline -Other Dressing aquacel ag and aquacel ag kerramax -Primary Dressing Covered/Secured with Dry Gauze & Roll Gauze Right -Stockings Yes Left -Stockings Yes Treatment Response Procedure Tolerated Well Vital Signs Blood Pressure (90/60-120/80 mm Hg) 150/88 H 132/80 H Blood Pressure Mean (mm Hg) 108 97 Source Monitor Monitor Position Sitting Sitting Blood Pressure Location Left Arm Right Arm Pain Scale: 0-10 Numeric Is Patient Pain Free? Yes Yes Teaching: Wound Center Dressing your wound w/hydroferra blue -Person Taught Patient -Teaching Method Discussion, Demonstration -Response to teaching Verbalize understanding WC - Visit Discharge Discharge Condition Stable Stable Ambulatory Status Ambulatory Ambulatory Transportation Private Auto Private Auto Medication Reconcilliation completed & No No provided to patient/care provider Clinical Summary of Care Provided Yes Yes Wound debrided: Left dorsal foot Type of Debridement: Excisional debridement Anesthesia Used: 4% Lidocaine Solution Depth: Down to and including healthy tissue, in the subcutaneous layer Percentage of wound debrided: 100 Instrument Used: 5mm curette Tissue Removed: Slough and devitalized tissue Severity: Fat Layer Exposed Amount of bleeding with debridement: Mild Bleeding Controlled with: Pressure Patient tolerated procedure well - Additional Wound Wound debrided: Left medial ankle Type of Debridement: Excisional debridement Anesthesia Used: 4% Lidocaine Solution Depth: Down to and including healthy tissue, in the subcutaneous layer Percentage of wound debrided: 100 Instrument Used: 5mm curette Tissue Removed: Slough and devitalized tissue Severity: Fat Layer Exposed Amount of bleeding with debridement: Mild Bleeding Controlled with: Pressure Patient tolerated procedure: Patient tolerated procedure well - Additional Wound Wound debrided: Left lower extremity inferior Type of Debridement: Excisional debridement Anesthesia Used: 4% Lidocaine Solution Depth: Down to and including healthy tissue, in the subcutaneous layer Percentage of wound debrided: 100 Instrument Used: 5mm curette Tissue Removed: Slough and devitalized tissue Severity: Fat Layer Exposed Amount of bleeding with debridement: Mild Bleeding Controlled with: Pressure Patient tolerated procedure: Patient tolerated procedure well - Additional Wound Wound debrided: Left lower extremity superior Type of Debridement: Excisional debridement Depth: Down to and including healthy tissue, in the subcutaneous layer Percentage of wound debrided: 100 Instrument Used: 5mm curette Tissue Removed: Slough and devitalized tissue Severity: Fat Layer Exposed Amount of bleeding with debridement: Mild Bleeding Controlled with: Pressure Patient tolerated procedure: Patient tolerated procedure well Assessment/Plan Active Problems Ulcer of left lower extremity with fat layer exposed (Chronic) PVD (peripheral vascular disease) (Chronic) Chronic venous insufficiency (Chronic) Chronic venous insufficiency (Chronic) Varicose veins with ulcer and inflammation (Chronic) Assessment: Chronic left leg ulcer. Venous insufficiency. Leg edema. Delayed ulcer healing. Plan: Debridement done as documented above, procedure was well tolerated. As above, he was started on clindamycin for culture and sensitivity last week but has developed diarrhea. He has taken 1 week of. He was advised to stop. Speak with his PCP about getting tested for C. difficile. Continue Aquacel Ag and keramax. Change daily to twice daily depending on drainage. Cleanse daily. Continue use of compression stockings, leg elevation and exercise. Increased protein intake , protein supplements, zinc and vitamin C also recommended. His questions were answered and he was advised to call with any further questions or concerns. Follow-up in 1 week. This note was generated with [employer]isk[employer] software. It may contain incorrect words, spelling, and punctuation that were not noted in checking the note before signing. [id number]: [id number] Lakeisha subq tissue 20 sq cm/< Add On Codes: [id number] Lakeisha subq tissue add-on - x2 additional square centimeter debrided, please refer to clinical note.
[2020-10-21 09:59] VITALS: RESP 18; TEMP 35.9; BMI 31.4
--- NOTE | 2020-10-21 11:04 | PCM.WC.PN ---
(1) Ulcer of left lower extremity with fat layer exposed Status: Chronic Code(s): L97.922 - Non-pressure chronic ulcer of unspecified part of left lower leg with fat layer exposed (2) Chronic venous insufficiency Status: Chronic (3) Chronic venous insufficiency Status: Chronic Code(s): I87.2 - Venous insufficiency (chronic) (peripheral) (4) PVD (peripheral vascular disease) Status: Chronic Code(s): I73.9 - Peripheral vascular disease, unspecified (5) Varicose veins with ulcer and inflammation Status: Chronic Code(s): I83.209 - Varicose veins of unspecified lower extremity with both ulcer of unspecified site and inflammation; L97.909 - Non-pressure chronic ulcer of unspecified part of unspecified lower leg with unspecified severity Type of Wound Date of Service: 10/21/20 Chief Complaint: ulcers to the left lower leg History of Wound: This is a 54-year-old male presents to wound healing center with a long-standing history of chronic venous insufficiency, chronic venous hypertension, lower extremity edema, lower extremity pain, and chronic left lower extremity ulcer. The patient has previously undergone endovenous laser ablation of the left and right great saphenous vein, the small saphenous vein, the left accessory saphenous vein, and an incompetent left calf structural biologist vein located 15 cm proximal to the left medial malleolus. He is currently wearing graduated compression stockings which are documented to be 20-30 mmHg compression and these are thigh high. He reports great compliance with use. He is also had previous arterial work-up with no intervention recommended by letter, his vascular surgeon. He denies taking nutritional supplementation. He saw dermatology and had a biopsy of the ulcer site. He also was previously treated by infectious disease for various contaminations and infections. He is not antibiotics at this time nor does he have any redness or odor coming from the wound. He denies fever, chill, nausea, vomiting, loss of appetite. Progress of Wound: No new concerns at this time. Stable ulcers. - Physical Exam Vital Signs Temp Pulse Resp BP 96.7 F L 82 18 132/80 H 10/21/20 09:59 10/14/20 09:36 10/21/20 09:59 10/14/20 10:30 General: Alert, Oriented x3, Cooperative, No apparent distress HEENT: Atraumatic, Normocephalic Oral: Moist Mucosa Neck: Supple Lungs: Normal air movement Extremities: No cyanosis, Edema Skin: Ulcer/ Wound Wound Measurements and Assessment WC - Nurse 1 - General Ulcer Measurement Start: 09/30/20 09:41 Freq: Status: Active Protocol: Activity Type Activity Date Activity User E-Sign Co-Sign Detail Recorded Client Recorded Date Recorded By Document 10/21/20 09:59 RB [id number] 10/21/20 10:09 RB 10/21/20 09:59 Wound Center Nurse 1 [Ulcer Assessment] #14 LEFT DORSAL FOOT -Combined with other wound No -Current Size (cm) - Length 0.2 -Current Size (cm) - Width 0.2 -Current Size (cm) - Depth 0.1 -Total Square Cm 0.04 -Tunneling No -Undermining/Tunneling No -Circular Undermining No -Exudate Amt Medium -Exudate Type Serosanguineous -Wound Margin Flat & Intact -Granulation Amt Medium (34-66%) -Granulation Quality Chase -Slough/Fibrin Yes -Necrosis Amt Medium (34-66%) -Necrotic Tissue Type Adherent Slough -Structure Exposed N/A -Texture (Ara-wound Skin Appearance) Scarring -Moisture (Ara-wound Skin Appearance Assessed ) -Color (Ara-wound Skin Appearance) Assessed -Temperature (Ara-wound Skin No Abnormality Appearance) (Pt Warm) -Tenderness on Palpation (Ara-wound No Skin Appearance) -Ulcer Cleansing Wound Cleanser -Foul Odor after Cleansing No -Anesthetic Used 4% Lidocaine Solution #12 Medial Superior LLE -Combined with other wound No -Current Size (cm) - Length 2 -Current Size (cm) - Width 4.8 -Current Size (cm) - Depth 0.3 -Total Square Cm 9.6 -Tunneling No -Undermining/Tunneling No -Circular Undermining No -Exudate Amt Medium -Exudate Type Serosanguineous -Wound Margin Flat & Intact -Granulation Amt Medium (34-66%) -Granulation Quality Chase -Slough/Fibrin Yes -Necrosis Amt Medium (34-66%) -Necrotic Tissue Type Adherent Slough -Structure Exposed N/A -Texture (Ara-wound Skin Appearance) Scarring -Moisture (Ara-wound Skin Appearance Assessed ) -Color (Ara-wound Skin Appearance) Assessed -Temperature (Ara-wound Skin No Abnormality Appearance) (Pt Warm) -Tenderness on Palpation (Ara-wound No Skin Appearance) -Ulcer Cleansing Wound Cleanser -Foul Odor after Cleansing No -Anesthetic Used 4% Lidocaine Solution #11 Medial Inferior LLE -Combined with other wound No -Current Size (cm) - Length 3.7 -Current Size (cm) - Width 4.6 -Current Size (cm) - Depth 0.3 -Total Square Cm 17.02 -Tunneling No -Undermining/Tunneling No -Circular Undermining No -Exudate Amt Medium -Exudate Type Serosanguineous -Wound Margin Flat & Intact -Granulation Amt Medium (34-66%) -Granulation Quality Chase -Slough/Fibrin Yes -Necrosis Amt Medium (34-66%) -Necrotic Tissue Type Adherent Slough -Structure Exposed N/A -Texture (Ara-wound Skin Appearance) Scarring -Moisture (Ara-wound Skin Appearance Assessed ) -Color (Raa-wound Skin Appearance) Assessed -Temperature (Ara-wound Skin No Abnormality Appearance) (Pt Warm) -Tenderness on Palpation (Ara-wound No Skin Appearance) -Ulcer Cleansing Wound Cleanser -Foul Odor after Cleansing No -Anesthetic Used 4% Lidocaine Solution #10 Left Medial Ankle -Combined with other wound No -Current Size (cm) - Length 2.3 -Current Size (cm) - Width 4.8 -Current Size (cm) - Depth 0.3 -Total Square Cm 11.04 -Tunneling No -Undermining/Tunneling No -Circular Undermining No -Exudate Amt Medium -Exudate Type Serosanguineous -Wound Margin Flat & Intact -Granulation Amt Medium (34-66%) -Granulation Quality Chase -Slough/Fibrin Yes -Necrosis Amt Medium (34-66%) -Necrotic Tissue Type Adherent Slough -Structure Exposed N/A -Texture (Ara-wound Skin Appearance) Scarring -Moisture (Ara-wound Skin Appearance Assessed ) -Color (Ara-wound Skin Appearance) Assessed -Temperature (Ara-wound Skin No Abnormality Appearance) (Pt Warm) -Tenderness on Palpation (Ara-wound No Skin Appearance) -Ulcer Cleansing Wound Cleanser -Foul Odor after Cleansing No -Anesthetic Used 4% Lidocaine Solution [Edema Assessment] -Lower Limb Edema Present Yes -Left Calf (cm) 35.6 -Left Ankle (cm) 23.3 WC - Nurse 2 - General Ulcer CM Notes Start: 09/30/20 09:41 Freq: Status: Active Protocol: Activity Type Activity Date Activity User E-Sign Co-Sign Detail Recorded Client Recorded Date Recorded By Document 10/21/20 10:23 MW [id number] 10/21/20 10:35 MW 10/21/20 10:23 Wound Center Nurse 2 [Procedure/Treatment] #14 LEFT DORSAL FOOT -Time 10:24 -Correct Patient Yes -Correct Side, Site, Position Yes -Correct Procedure Yes -Procedure Performed Yes -Type of Procedure Debridement -Clinical Debridement Subcutaneous -Tissue Removed Subcutaneous -Post Debridement (cm) - Length 0.5 -Post Debridement (cm) - Width 0.3 -Post Debridement (cm) - Depth 0.1 -Total Square (Post) (cm) 0.15 -Area of Debridement (cm) - Length 0.5 -Area of Debridement (cm) - Width 0.3 -Total Square (Area) (cm) 0.15 -Tunneling No -Undermining/Tunneling No -Circular Undermining No -Wound/Ulcer Outcome Not Healed -Ulcer Cleansing Rinsed/ Irrigated with Saline -Foul Odor after Cleansing No -Bioengineered Tissue No -Bleeding Controlled with Pressure -Offloading No -Treatment Response Procedure Tolerated Well -Debridement - Subq, 1st 20sq cm Yes #12 Medial Superior LLE -Time 10:25 -Correct Patient Yes -Correct Side, Site, Position Yes -Correct Procedure Yes -Procedure Performed Yes -Type of Procedure Debridement -Clinical Debridement Subcutaneous -Tissue Removed Subcutaneous -Post Debridement (cm) - Length 2.5 -Post Debridement (cm) - Width 5.5 -Post Debridement (cm) - Depth 0.1 -Total Square (Post) (cm) 13.75 -Area of Debridement (cm) - Length 2.5 -Area of Debridement (cm) - Width 5.5 -Total Square (Area) (cm) 13.75 -Tunneling No -Undermining/Tunneling No -Circular Undermining No -Wound/Ulcer Outcome Not Healed -Ulcer Cleansing Rinsed/ Irrigated with Saline -Foul Odor after Cleansing No -Bioengineered Tissue No -Bleeding Controlled with Pressure -Offloading No -Treatment Response Procedure Tolerated Well -Debridement - Subq, 1st 20sq cm No #11 Medial Inferior LLE -Time 10:25 -Correct Patient Yes -Correct Side, Site, Position Yes -Procedure Performed Yes -Type of Procedure Debridement -Clinical Debridement Subcutaneous -Tissue Removed Subcutaneous -Post Debridement (cm) - Length 3.0 -Post Debridement (cm) - Width 5.0 -Post Debridement (cm) - Depth 0.1 -Total Square (Post) (cm) 15.00 -Area of Debridement (cm) - Length 3.0 -Area of Debridement (cm) - Width 5.0 -Total Square (Area) (cm) 15.00 -Tunneling No -Undermining/Tunneling No -Circular Undermining No -Wound/Ulcer Outcome Not Healed -Ulcer Cleansing Rinsed/ Irrigated with Saline -Foul Odor after Cleansing No -Bioengineered Tissue No -Bleeding Controlled with Pressure -Offloading No -Debridement - Subq, 20sq cm No #10 Left Medial Ankle -Time 10:26 -Correct Patient Yes -Correct Side, Site, Position Yes -Correct Procedure Yes -Procedure Performed Yes -Type of Procedure Debridement -Clinical Debridement Subcutaneous -Tissue Removed Subcutaneous -Post Debridement (cm) - Length 3.0 -Post Debridement (cm) - Width 3.5 -Post Debridement (cm) - Depth 0.2 -Total Square (Post) (cm) 10.50 -Area of Debridement (cm) - Length 3.0 -Area of Debridement (cm) - Width 3.5 -Total Square (Area) (cm) 10.50 -Tunneling No -Undermining/Tunneling No -Circular Undermining No -Wound/Ulcer Outcome Not Healed -Ulcer Cleansing Rinsed/ Irrigated with Saline -Foul Odor after Cleansing No -Bioengineered Tissue No -Bleeding Controlled with Pressure -Offloading No -Treatment Response Procedure Tolerated Well -Debridement - Subq, 20sq cm No [See Physician Procedure note for Specifics] Pain Scale: 0-10 Numeric [Pain] -Is Patient Pain Free? Yes WC - Nurse 3 - General Ulcer D/C NN Start: 09/30/20 09:41 Freq: Status: Active Protocol: Activity Type Activity Date Activity User E-Sign Co-Sign Detail Recorded Client Recorded Date Recorded By Document 10/21/20 10:47 DL [id number] 10/21/20 10:51 DL 10/21/20 10:47 Wound Care Nurse 3 [Wound Dressing] #14 LEFT DORSAL FOOT -Ulcer Cleansing Rinsed/ Irrigated with Saline -Foul Odor after Cleansing No -Primary Dressing Applied Aquacel AG 4x4 -Other Dressing Kerramax -Primary Dressing Covered/Secured Dry Gauze & with Roll Gauze, Secured with Tape -Aquacel AG 4x4 1 #12 Medial Superior LLE -Other Dressing aquacel ag -Primary Dressing Covered/Secured Dry Gauze & with Roll Gauze, Secured with Tape -Other Covering kerramax #11 Medial Inferior LLE -Ulcer Cleansing Rinsed/ Irrigated with Saline -Foul Odor after Cleansing No -Other Dressing aquacel ag/ kerramax -Primary Dressing Covered/Secured Dry Gauze & with Roll Gauze, Secured with Tape #10 Left Medial Ankle -Ulcer Cleansing Rinsed/ Irrigated with Saline -Foul Odor after Cleansing No -Other Dressing aquacel ag/ kerramax -Primary Dressing Covered/Secured Dry Gauze & with Roll Gauze, Secured with Tape [Compression Applied] Left -Stockings Yes Pain Scale: 0-10 Numeric [Pain] -Is Patient Pain Free? Yes - Visit Discharge [Visit Discharge Information] -Discharge Condition Stable -Ambulatory Status Ambulatory -Transportation Private Auto Musculoskeletal: No Muscle Wasting Neurological: Cranial nerves II-XII grossly intact Psych/Mental Status: Normal Affect Debridement Note Post-Debridement Measurements/Treatment WC - Nurse 2 - General Ulcer CM Notes Start: 09/30/20 09:41 Freq: Status: Active Protocol: Activity Type Activity Date Activity User E-Sign Co-Sign Detail Recorded Client Recorded Date Recorded By Document 09/30/20 10:04 MW [id number] 09/30/20 10:18 MW Document 10/14/20 10:03 MW [id number] 10/14/20 10:16 MW Document 10/21/20 10:23 MW [id number] 10/21/20 10:35 MW 09/30/20 10/14/20 10/21/20 10:04 10:03 10:23 Wound Center Nurse 2 #14 LEFT DORSAL FOOT -Time 10:04 10:04 10:24 -Correct Patient Yes Yes Yes -Correct Side, Site, Position Yes Yes Yes -Correct Procedure Yes Yes Yes -Procedure Performed Yes No Yes -Type of Procedure Debridement Debridement Debridement -Clinical Debridement Subcutaneous Subcutaneous Subcutaneous -Tissue Removed Subcutaneous Subcutaneous Subcutaneous -Post Debridement (cm) - Length 1.5 0.7 0.5 -Post Debridement (cm) - Width 0.6 0.3 0.3 -Post Debridement (cm) - Depth 0.1 0.1 0.1 -Total Square (Post) (cm) 0.90 0.21 0.15 -Area of Debridement (cm) - Length 1.5 0.7 0.5 -Area of Debridement (cm) - Width 0.6 0.3 0.3 -Total Square (Area) (cm) 0.90 0.21 0.15 -Tunneling No No No -Undermining/Tunneling No No No -Circular Undermining No No No -Wound/Ulcer Outcome Not Healed Not Healed Not Healed -Ulcer Cleansing Rinsed/ Rinsed/ Rinsed/ Irrigated with Irrigated with Irrigated with Saline Saline Saline -Foul Odor after Cleansing No No No -Bioengineered Tissue No No No -Bleeding Controlled with Pressure Pressure Pressure -Offloading No No No -Treatment Response Procedure Procedure Procedure Tolerated Well Tolerated Well Tolerated Well -Debridement - Subq, 1st 20sq cm Yes Yes Yes -Debridement, SubQ, ea addt'l 20sq cm 2 2 or part thereof #12 Medial Superior LLE -Time 10:05 10:06 10:25 -Correct Patient Yes Yes Yes -Correct Side, Site, Position Yes Yes Yes -Correct Procedure Yes Yes Yes -Procedure Performed Yes Yes Yes -Type of Procedure Debridement Debridement Debridement -Clinical Debridement Subcutaneous Subcutaneous Subcutaneous -Tissue Removed Subcutaneous Subcutaneous Subcutaneous -Post Debridement (cm) - Length 2.8 3.0 2.5 -Post Debridement (cm) - Width 4.8 5.5 5.5 -Post Debridement (cm) - Depth 0.1 0.1 0.1 -Total Square (Post) (cm) 13.44 16.50 13.75 -Area of Debridement (cm) - Length 2.8 3.0 2.5 -Area of Debridement (cm) - Width 4.8 5.5 5.5 -Total Square (Area) (cm) 13.44 16.50 13.75 -Tunneling No No No -Undermining/Tunneling No No No -Circular Undermining No No No -Wound/Ulcer Outcome Not Healed Not Healed Not Healed -Ulcer Cleansing Rinsed/ Rinsed/ Rinsed/ Irrigated with Irrigated with Irrigated with Saline Saline Saline -Foul Odor after Cleansing No No No -Bioengineered Tissue No No No -Bleeding Controlled with Pressure Pressure Pressure -Offloading No No No -Treatment Response Procedure Procedure Procedure Tolerated Well Tolerated Well Tolerated Well -Debridement - Subq, 1st 20sq cm No No No #11 Medial Inferior LLE -Time 10:05 10:06 10:25 -Correct Patient Yes Yes Yes -Correct Side, Site, Position Yes Yes Yes -Correct Procedure Yes Yes -Procedure Performed Yes Yes Yes -Type of Procedure Debridement Debridement Debridement -Clinical Debridement Subcutaneous Subcutaneous Subcutaneous -Tissue Removed Subcutaneous Subcutaneous Subcutaneous -Post Debridement (cm) - Length 3.0 3.0 3.0 -Post Debridement (cm) - Width 5.5 5.0 5.0 -Post Debridement (cm) - Depth 0.1 0.1 0.1 -Total Square (Post) (cm) 16.50 15.00 15.00 -Area of Debridement (cm) - Length 3.0 3.0 3.0 -Area of Debridement (cm) - Width 5.5 5.0 5.0 -Total Square (Area) (cm) 16.50 15.00 15.00 -Tunneling No No No -Undermining/Tunneling No No No -Circular Undermining No No No -Wound/Ulcer Outcome Not Healed Not Healed Not Healed -Ulcer Cleansing Rinsed/ Rinsed/ Rinsed/ Irrigated with Irrigated with Irrigated with Saline Saline Saline -Foul Odor after Cleansing No No No -Bioengineered Tissue No No No -Bleeding Controlled with Pressure Pressure Pressure -Offloading No No No -Treatment Response Procedure Procedure Tolerated Well Tolerated Well -Debridement - Subq, 1st 20sq cm No No No #10 Left Medial Ankle -Time 10:05 10:07 10:26 -Correct Patient Yes Yes Yes -Correct Side, Site, Position Yes Yes Yes -Correct Procedure Yes Yes Yes -Procedure Performed Yes Yes Yes -Type of Procedure Debridement Debridement Debridement -Clinical Debridement Subcutaneous Subcutaneous Subcutaneous -Tissue Removed Subcutaneous Subcutaneous Subcutaneous -Post Debridement (cm) - Length 3.5 3.9 3.0 -Post Debridement (cm) - Width 3.1 3.5 3.5 -Post Debridement (cm) - Depth 0.2 0.2 0.2 -Total Square (Post) (cm) 10.85 13.65 10.50 -Area of Debridement (cm) - Length 3.5 3.9 3.0 -Area of Debridement (cm) - Width 3.1 3.5 3.5 -Total Square (Area) (cm) 10.85 13.65 10.50 -Tunneling No No No -Undermining/Tunneling No No No -Circular Undermining No No No -Wound/Ulcer Outcome Not Healed Not Healed Not Healed -Ulcer Cleansing Rinsed/ Rinsed/ Rinsed/ Irrigated with Irrigated with Irrigated with Saline Saline Saline -Foul Odor after Cleansing No No No -Bioengineered Tissue No No No -Bleeding Controlled with Pressure Pressure Pressure -Offloading No No No -Treatment Response Procedure Procedure Procedure Tolerated Well Tolerated Well Tolerated Well -Debridement - Subq, 1st 20sq cm No No No Pain Scale: 0-10 Numeric Is Patient Pain Free? Yes Yes Yes WC - Nurse 3 - General Ulcer D/C NN Start: 09/30/20 09:41 Freq: Status: Active Protocol: Activity Type Activity Date Activity User E-Sign Co-Sign Detail Recorded Client Recorded Date Recorded By Document 09/30/20 10:22 RB [id number] 09/30/20 10:24 RB Document 10/14/20 10:30 RB [id number] 10/14/20 10:32 RB Document 10/21/20 10:47 DL [id number] 10/21/20 10:51 DL 09/30/20 10/14/20 10/21/20 10:22 10:30 10:47 Wound Care Nurse 3 #14 LEFT DORSAL FOOT -Ulcer Cleansing Rinsed/ Rinsed/ Irrigated with Irrigated with Saline Saline -Foul Odor after Cleansing No -Primary Dressing Applied Aquacel AG 4x4 -Other Dressing Newzstandel ag [employer] ag, Kerramax kerramax -Primary Dressing Covered/Secured with Dry Gauze, Dry Gauze & Dry Gauze & Secured with Roll Gauze, Roll Gauze, Tape Secured with Secured with Tape Tape -Aquacel AG 4x4 1 #12 Medial Superior LLE -Ulcer Cleansing Rinsed/ Irrigated with Saline -Other Dressing aquacel ag and aquacel ag aquacel ag kerrmax -Primary Dressing Covered/Secured with Dry Gauze, Dry Gauze & Dry Gauze & Secured with Roll Gauze Roll Gauze, Tape Secured with Tape -Other Covering kerramax #11 Medial Inferior LLE -Ulcer Cleansing Rinsed/ Wound Cleanser Rinsed/ Irrigated with Irrigated with Saline Saline -Foul Odor after Cleansing No -Other Dressing aquacel ag and aquacel ag aquacel ag/ kerramax kerramax -Primary Dressing Covered/Secured with Dry Gauze, Dry Gauze & Secured with Roll Gauze, Tape Secured with Tape #10 Left Medial Ankle -Ulcer Cleansing Rinsed/ Wound Cleanser Rinsed/ Irrigated with Irrigated with Saline Saline -Foul Odor after Cleansing No -Other Dressing aquacel ag and aquacel ag aquacel ag/ kerramax kerramax -Primary Dressing Covered/Secured with Dry Gauze & Dry Gauze & Roll Gauze Roll Gauze, Secured with Tape Right -Stockings Yes Left -Stockings Yes Yes Treatment Response Procedure Tolerated Well Vital Signs Blood Pressure (90/60-120/80 mm Hg) 150/88 H 132/80 H Blood Pressure Mean (mm Hg) 108 97 Source Monitor Monitor Position Sitting Sitting Blood Pressure Location Left Arm Right Arm Pain Scale: 0-10 Numeric Is Patient Pain Free? Yes Yes Yes Teaching: Wound Center Dressing your wound w/hydroferra blue -Person Taught Patient -Teaching Method Discussion, Demonstration -Response to teaching Verbalize understanding WC - Visit Discharge Discharge Condition Stable Stable Stable Ambulatory Status Ambulatory Ambulatory Ambulatory Transportation Private Auto Private Auto Private Auto Medication Reconcilliation completed & No No provided to patient/care provider Clinical Summary of Care Provided Yes Yes Wound debrided: Left dorsal foot Type of Debridement: Excisional debridement Anesthesia Used: 4% Lidocaine Solution Depth: Down to and including healthy tissue, in the subcutaneous layer Percentage of wound debrided: 100 Instrument Used: 3mm curette Tissue Removed: Slough and devitalized tissue Severity: Fat Layer Exposed Amount of bleeding with debridement: Mild Bleeding Controlled with: Pressure Patient tolerated procedure well - Additional Wound Wound debrided: Left medial ankle Type of Debridement: Excisional debridement Anesthesia Used: 4% Lidocaine Solution Depth: Down to and including healthy tissue, in the subcutaneous layer Percentage of wound debrided: 100 Instrument Used: 5mm curette Tissue Removed: Slough and devitalized tissue Severity: Fat Layer Exposed Amount of bleeding with debridement: Mild Bleeding Controlled with: Pressure Patient tolerated procedure: Patient tolerated procedure well - Additional Wound Wound debrided: Left lower extremity inferior Type of Debridement: Excisional debridement Anesthesia Used: 4% Lidocaine Solution Depth: Down to and including healthy tissue, in the subcutaneous layer Percentage of wound debrided: 100 Instrument Used: 5mm curette Tissue Removed: Slough and devitalized tissue Severity: Fat Layer Exposed Amount of bleeding with debridement: Mild Bleeding Controlled with: Pressure Patient tolerated procedure: Patient tolerated procedure well - Additional Wound Wound debrided: Left lower extremity superior Type of Debridement: Excisional debridement Anesthesia Used: 4% Lidocaine Solution Depth: Down to and including healthy tissue, in the subcutaneous layer Percentage of wound debrided: 100 Instrument Used: 5mm curette Tissue Removed: Slough and devitalized tissue Severity: Fat Layer Exposed Amount of bleeding with debridement: Mild Bleeding Controlled with: Pressure Patient tolerated procedure: Patient tolerated procedure well Assessment/Plan Active Problems Ulcer of left lower extremity with fat layer exposed (Chronic) PVD (peripheral vascular disease) (Chronic) Chronic venous insufficiency (Chronic) Chronic venous insufficiency (Chronic) Varicose veins with ulcer and inflammation (Chronic) Assessment: Chronic left leg ulcer. Venous insufficiency. Leg edema. Delayed ulcer healing. Plan: Debridement done as documented above, procedure was well tolerated. Continue Aquacel Ag and keramax. Change daily to twice daily depending on drainage. Cleanse daily. Continue use of compression stockings, leg elevation and exercise. Increased protein intake , protein supplements, zinc and vitamin C also recommended. His questions were answered and he was advised to call with any further questions or concerns. Follow-up in 2 weeks. This note was generated with [employer] dictation software. It may contain incorrect words, spelling, and punctuation that were not noted in checking the note before signing. [id number]: [id number] Lakeisha subq tissue 20 sq cm/< Add On Codes: [id number] Lakeisha subq tissue add-on - Additional square centimeter debrided, please refer to clinical note.
== END 2020-10-28 23:59 ==
LOC: WC 09:45
PROVIDERS: Visit Provider Internal Medicine
DX: I83.228 Varicose veins of left lower extremity with both ulcer of other part of lower extremity and inflammation (principal); L97.822 Non-pressure chronic ulcer of other part of left lower leg with fat layer exposed; L97.322 Non-pressure chronic ulcer of left ankle with fat layer exposed; L97.522 Non-pressure chronic ulcer of other part of left foot with fat layer exposed; R60.0 Localized edema
CPT/HCPCS: 11042; 11045; 87070; 87075; 87077; 87186; 87205

== ENCOUNTER 2020-11-25 09:00 | Outpatient (RCR) | payer BC, SELFPAY ==
[2020-10-29 00:20] VITALS: BP 132/80; PULSE 82; RESP 18; TEMP 35.9
[2020-11-04 09:15] VITALS: BP 151/78; PULSE 89; RESP 16; TEMP 36.3; BMI 31.4
--- NOTE | 2020-11-04 09:51 | PCM.WC.PN ---
(1) Ulcer of left lower extremity with fat layer exposed Status: Chronic Code(s): L97.922 - Non-pressure chronic ulcer of unspecified part of left lower leg with fat layer exposed (2) Chronic venous insufficiency Status: Chronic (3) PVD (peripheral vascular disease) Status: Chronic Code(s): I73.9 - Peripheral vascular disease, unspecified (4) Venous stasis of lower extremity Status: Chronic Code(s): I87.8 - Other specified disorders of veins Type of Wound Date of Service: 11/04/20 Chief Complaint: ulcers to the left lower leg History of Wound: This is a 54-year-old male presents to wound healing center with a long-standing history of chronic venous insufficiency, chronic venous hypertension, lower extremity edema, lower extremity pain, and chronic left lower extremity ulcer. The patient has previously undergone endovenous laser ablation of the left and right great saphenous vein, the small saphenous vein, the left accessory saphenous vein, and an incompetent left calf network technician vein located 15 cm proximal to the left medial malleolus. He is currently wearing graduated compression stockings which are documented to be 20-30 mmHg compression and these are thigh high. He reports great compliance with use. He is also had previous arterial work-up with no intervention recommended by letter, his vascular surgeon. He denies taking nutritional supplementation. He saw dermatology and had a biopsy of the ulcer site. He also was previously treated by infectious disease for various contaminations and infections. He is not antibiotics at this time nor does he have any redness or odor coming from the wound. He denies fever, chill, nausea, vomiting, loss of appetite. Progress of Wound: No new concerns at this time. Stable ulcers. - Physical Exam Vital Signs Temp Pulse Resp BP 97.3 F L 89 16 151/78 H 11/04/20 09:15 11/04/20 09:15 11/04/20 09:15 11/04/20 09:15 General: Alert, Oriented x3, Cooperative, No apparent distress HEENT: Atraumatic, Normocephalic Oral: Moist Mucosa Neck: Supple Extremities: No cyanosis, Edema Skin: Ulcer/ Wound Wound Measurements and Assessment WC - Nurse 1 - General Ulcer Measurement Start: 11/04/20 09:15 Freq: Status: Active Protocol: Activity Type Activity Date Activity User E-Sign Co-Sign Detail Recorded Client Recorded Date Recorded By Document 11/04/20 09:15 [facility] [id number] 11/04/20 09:23 [facility] 11/04/20 09:15 Wound Center Nurse 1 [Ulcer Assessment] #14 LEFT DORSAL FOOT -Current Size (cm) - Length 0.1 -Current Size (cm) - Width 0.1 -Current Size (cm) - Depth 0.1 -Total Square Cm 0.01 -Photo Taken No -Exudate Amt None Present -Wound Margin Flat & Intact -Granulation Amt Large (67-100%) -Granulation Quality [place] -Necrosis Amt Small (1-33%) -Necrotic Tissue Type Eschar -Structure Exposed N/A -Texture (Ara-wound Skin Appearance) Localized Edema ,Scarring -Moisture (Ara-wound Skin Appearance Dry/Scaly ) -Color (Ara-wound Skin Appearance) Hemosiderin Staining -Temperature (Ara-wound Skin No Abnormality Appearance) (Pt Warm) -Tenderness on Palpation (Ara-wound No Skin Appearance) -Ulcer Cleansing Wound Cleanser -Foul Odor after Cleansing No -Anesthetic Used 4% Lidocaine Solution #12 Medial Superior LLE -Current Size (cm) - Length 2.1 -Current Size (cm) - Width 4.9 -Current Size (cm) - Depth 0.2 -Total Square Cm 10.29 -Photo Taken No -Exudate Amt Small -Exudate Type Serosanguineous -Wound Margin Distinct, Outline Attached -Granulation Amt Medium (34-66%) -Granulation Quality Red -Necrosis Amt Medium (34-66%) -Necrotic Tissue Type Adherent Slough -Structure Exposed N/A -Texture (Ara-wound Skin Appearance) Scarring -Moisture (Ara-wound Skin Appearance Dry/Scaly ) -Color (Ara-wound Skin Appearance) Hemosiderin Staining -Temperature (Ara-wound Skin No Abnormality Appearance) (Pt Warm) -Tenderness on Palpation (Ara-wound No Skin Appearance) -Ulcer Cleansing Wound Cleanser -Foul Odor after Cleansing No -Anesthetic Used 4% Lidocaine Solution #11 Medial Inferior LLE -Current Size (cm) - Length 4.1 -Current Size (cm) - Width 4.1 -Current Size (cm) - Depth 0.2 -Total Square Cm 16.81 -Photo Taken No -Exudate Amt Small -Exudate Type Serosanguineous -Wound Margin Distinct, Outline Attached -Granulation Amt Large (67-100%) -Granulation Quality Red -Necrosis Amt Small (1-33%) -Necrotic Tissue Type Adherent Slough -Structure Exposed N/A -Texture (Aar-wound Skin Appearance) Scarring -Moisture (Ara-wound Skin Appearance Dry/Scaly ) -Color (Ara-wound Skin Appearance) Hemosiderin Staining -Temperature (Ara-wound Skin No Abnormality Appearance) (Pt Warm) -Tenderness on Palpation (Ara-wound No Skin Appearance) -Ulcer Cleansing Wound Cleanser -Foul Odor after Cleansing No -Anesthetic Used 4% Lidocaine Solution #10 Left Medial Ankle -Current Size (cm) - Length 3.5 -Current Size (cm) - Width 3.3 -Current Size (cm) - Depth 0.3 -Total Square Cm 11.55 -Photo Taken No -Exudate Amt Small -Exudate Type Serosanguineous -Wound Margin Distinct, Outline Attached -Granulation Amt Medium (34-66%) -Granulation Quality Red -Necrosis Amt Medium (34-66%) -Necrotic Tissue Type Adherent Slough -Structure Exposed N/A -Texture (Ara-wound Skin Appearance) Scarring -Moisture (Ara-wound Skin Appearance Dry/Scaly ) -Color (Ara-wound Skin Appearance) Hemosiderin Staining -Temperature (Ara-wound Skin No Abnormality Appearance) (Pt Warm) -Tenderness on Palpation (Raa-wound No Skin Appearance) -Ulcer Cleansing Wound Cleanser -Foul Odor after Cleansing No -Anesthetic Used 4% Lidocaine Solution [Edema Assessment] -Left Calf (cm) 36 -Left Ankle (cm) 23.2 WC - Nurse 2 - General Ulcer CM Notes Start: 11/04/20 09:15 Freq: Status: Active Protocol: Activity Type Activity Date Activity User E-Sign Co-Sign Detail Recorded Client Recorded Date Recorded By Document 11/04/20 09:35 MW [id number] 11/04/20 09:41 MW 11/04/20 09:35 Wound Center Nurse 2 [Procedure/Treatment] #14 LEFT DORSAL FOOT -Time 09:35 -Correct Patient Yes -Correct Side, Site, Position Yes -Correct Procedure Yes -Procedure Performed No -Post Debridement (cm) - Length 0 -Post Debridement (cm) - Width 0 -Post Debridement (cm) - Depth 0 -Total Square (Post) (cm) 0 #12 Medial Superior LLE -Time 09:35 -Correct Patient Yes -Correct Side, Site, Position Yes -Correct Procedure Yes -Procedure Performed Yes -Type of Procedure Debridement -Clinical Debridement Subcutaneous -Tissue Removed Subcutaneous -Post Debridement (cm) - Length 2.8 -Post Debridement (cm) - Width 5.0 -Post Debridement (cm) - Depth 0.1 -Total Square (Post) (cm) 14.00 -Area of Debridement (cm) - Length 2.8 -Area of Debridement (cm) - Width 5.0 -Total Square (Area) (cm) 14.00 -Tunneling No -Undermining/Tunneling No -Circular Undermining No -Wound/Ulcer Outcome Not Healed -Ulcer Cleansing Rinsed/ Irrigated with Saline -Foul Odor after Cleansing No -Bioengineered Tissue No -Bleeding Controlled with Pressure -Offloading No -Treatment Response Procedure Tolerated Well -Debridement - Subq, 1st 20sq cm Yes #11 Medial Inferior LLE -Time 09:35 -Correct Patient Yes -Correct Side, Site, Position Yes -Correct Procedure Yes -Procedure Performed Yes -Type of Procedure Debridement -Clinical Debridement Subcutaneous -Tissue Removed Subcutaneous -Post Debridement (cm) - Length 3.0 -Post Debridement (cm) - Width 4.5 -Post Debridement (cm) - Depth 0.1 -Total Square (Post) (cm) 13.50 -Area of Debridement (cm) - Length 3.0 -Area of Debridement (cm) - Width 4.5 -Total Square (Area) (cm) 13.50 -Tunneling No -Undermining/Tunneling No -Circular Undermining No -Wound/Ulcer Outcome Not Healed -Ulcer Cleansing Rinsed/ Irrigated with Saline -Foul Odor after Cleansing No -Bioengineered Tissue No -Bleeding Controlled with Pressure -Offloading No -Treatment Response Procedure Tolerated Well -Debridement - Subq, 1st 20sq cm No #10 Left Medial Ankle -Time 09:36 -Correct Patient Yes -Correct Side, Site, Position Yes -Correct Procedure Yes -Procedure Performed Yes -Type of Procedure Debridement -Clinical Debridement Subcutaneous -Tissue Removed Subcutaneous -Post Debridement (cm) - Length 3.2 -Post Debridement (cm) - Width 3.2 -Post Debridement (cm) - Depth 0.2 -Total Square (Post) (cm) 10.24 -Area of Debridement (cm) - Length 3.2 -Area of Debridement (cm) - Width 3.2 -Total Square (Area) (cm) 10.24 -Tunneling No -Undermining/Tunneling No -Circular Undermining No -Wound/Ulcer Outcome Not Healed -Ulcer Cleansing Rinsed/ Irrigated with Saline -Foul Odor after Cleansing No -Bioengineered Tissue No -Bleeding Controlled with Pressure -Offloading No -Treatment Response Procedure Tolerated Well -Debridement - Subq, 1st 20sq cm No [See Physician Procedure note for Specifics] Pain Scale: 0-10 Numeric [Pain] -Is Patient Pain Free? Yes Musculoskeletal: No Muscle Wasting Neurological: Cranial nerves II-XII grossly intact Psych/Mental Status: Normal Affect Debridement Note Post-Debridement Measurements/Treatment WC - Nurse 2 - General Ulcer CM Notes Start: 11/04/20 09:15 Freq: Status: Active Protocol: Activity Type Activity Date Activity User E-Sign Co-Sign Detail Recorded Client Recorded Date Recorded By Document 11/04/20 09:35 MW [id number] 11/04/20 09:41 MW 11/04/20 09:35 Wound Center Nurse 2 #14 LEFT DORSAL FOOT -Time 09:35 -Correct Patient Yes -Correct Side, Site, Position Yes -Correct Procedure Yes -Procedure Performed No -Post Debridement (cm) - Length 0 -Post Debridement (cm) - Width 0 -Post Debridement (cm) - Depth 0 -Total Square (Post) (cm) 0 #12 Medial Superior LLE -Time 09:35 -Correct Patient Yes -Correct Side, Site, Position Yes -Correct Procedure Yes -Procedure Performed Yes -Type of Procedure Debridement -Clinical Debridement Subcutaneous -Tissue Removed Subcutaneous -Post Debridement (cm) - Length 2.8 -Post Debridement (cm) - Width 5.0 -Post Debridement (cm) - Depth 0.1 -Total Square (Post) (cm) 14.00 -Area of Debridement (cm) - Length 2.8 -Area of Debridement (cm) - Width 5.0 -Total Square (Area) (cm) 14.00 -Tunneling No -Undermining/Tunneling No -Circular Undermining No -Wound/Ulcer Outcome Not Healed -Ulcer Cleansing Rinsed/ Irrigated with Saline -Foul Odor after Cleansing No -Bioengineered Tissue No -Bleeding Controlled with Pressure -Offloading No -Treatment Response Procedure Tolerated Well -Debridement - Subq, 1st 20sq cm Yes #11 Medial Inferior LLE -Time 09:35 -Correct Patient Yes -Correct Side, Site, Position Yes -Correct Procedure Yes -Procedure Performed Yes -Type of Procedure Debridement -Clinical Debridement Subcutaneous -Tissue Removed Subcutaneous -Post Debridement (cm) - Length 3.0 -Post Debridement (cm) - Width 4.5 -Post Debridement (cm) - Depth 0.1 -Total Square (Post) (cm) 13.50 -Area of Debridement (cm) - Length 3.0 -Area of Debridement (cm) - Width 4.5 -Total Square (Area) (cm) 13.50 -Tunneling No -Undermining/Tunneling No -Circular Undermining No -Wound/Ulcer Outcome Not Healed -Ulcer Cleansing Rinsed/ Irrigated with Saline -Foul Odor after Cleansing No -Bioengineered Tissue No -Bleeding Controlled with Pressure -Offloading No -Treatment Response Procedure Tolerated Well -Debridement - Subq, 1st 20sq cm No #10 Left Medial Ankle -Time 09:36 -Correct Patient Yes -Correct Side, Site, Position Yes -Correct Procedure Yes -Procedure Performed Yes -Type of Procedure Debridement -Clinical Debridement Subcutaneous -Tissue Removed Subcutaneous -Post Debridement (cm) - Length 3.2 -Post Debridement (cm) - Width 3.2 -Post Debridement (cm) - Depth 0.2 -Total Square (Post) (cm) 10.24 -Area of Debridement (cm) - Length 3.2 -Area of Debridement (cm) - Width 3.2 -Total Square (Area) (cm) 10.24 -Tunneling No -Undermining/Tunneling No -Circular Undermining No -Wound/Ulcer Outcome Not Healed -Ulcer Cleansing Rinsed/ Irrigated with Saline -Foul Odor after Cleansing No -Bioengineered Tissue No -Bleeding Controlled with Pressure -Offloading No -Treatment Response Procedure Tolerated Well -Debridement - Subq, 1st 20sq cm No Pain Scale: 0-10 Numeric Is Patient Pain Free? Yes Wound debrided: Left medial ankle Type of Debridement: Excisional debridement Anesthesia Used: 4% Lidocaine Solution Depth: Down to and including healthy tissue, in the subcutaneous layer Percentage of wound debrided: 100 Instrument Used: 5mm curette Tissue Removed: Slough and devitalized tissue Severity: Fat Layer Exposed Amount of bleeding with debridement: Mild Bleeding Controlled with: Pressure Patient tolerated procedure well - Additional Wound Wound debrided: Left Lower Extremity ( Inferior ) Type of Debridement: Excisional debridement Anesthesia Used: 4% Lidocaine Solution Depth: Down to and including healthy tissue, in the subcutaneous layer Percentage of wound debrided: 100 Instrument Used: 5mm curette Tissue Removed: Slough and devitalized tissue Severity: Fat Layer Exposed Amount of bleeding with debridement: Mild Bleeding Controlled with: Pressure Patient tolerated procedure: Patient tolerated procedure well - Additional Wound Wound debrided: Left lower extremity (superior) Type of Debridement: Excisional debridement Anesthesia Used: 4% Lidocaine Solution Depth: Down to and including healthy tissue, in the subcutaneous layer Percentage of wound debrided: 100 Instrument Used: 5mm curette Tissue Removed: Slough and devitalized tissue Severity: Fat Layer Exposed Amount of bleeding with debridement: Mild Bleeding Controlled with: Pressure Patient tolerated procedure: Patient tolerated procedure well Assessment/Plan Assessment: Chronic left leg ulcer. Venous insufficiency. Leg edema. Delayed ulcer healing. Plan: Debridement done as documented above, procedure was well tolerated. Continue Aquacel Ag and keramax. Change daily to twice daily depending on drainage. Cleanse daily. Continue use of compression stockings, leg elevation and exercise. Increased protein intake , protein supplements, zinc and vitamin C also recommended. His questions were answered and he was advised to call with any further questions or concerns. Follow-up in 1 week. This note was generated with [employer] dictation software. It may contain incorrect words, spelling, and punctuation that were not noted in checking the note before signing. [id number]: [id number] [place] subq tissue 20 sq cm/< Add On Codes: [id number] [place] subq tissue add-on - Additional square centimeter debrided, please refer to clinical note.
[2020-11-11 09:38] VITALS: BP 147/80; PULSE 90; RESP 18; TEMP 36.4; BMI 31.4
--- NOTE | 2020-11-11 11:47 | PCM.WC.PN ---
(1) Ulcer of left lower extremity with fat layer exposed Status: Chronic Code(s): L97.922 - Non-pressure chronic ulcer of unspecified part of left lower leg with fat layer exposed (2) Chronic venous insufficiency Status: Chronic (3) PVD (peripheral vascular disease) Status: Chronic Code(s): I73.9 - Peripheral vascular disease, unspecified (4) Venous stasis of lower extremity Status: Chronic Code(s): I87.8 - Other specified disorders of veins Type of Wound Date of Service: 11/11/20 Chief Complaint: ulcers to the left lower leg History of Wound: This is a 54-year-old male presents to wound healing center with a long-standing history of chronic venous insufficiency, chronic venous hypertension, lower extremity edema, lower extremity pain, and chronic left lower extremity ulcer. The patient has previously undergone endovenous laser ablation of the left and right great saphenous vein, the small saphenous vein, the left accessory saphenous vein, and an incompetent left calf hot mill roller vein located 15 cm proximal to the left medial malleolus. He is currently wearing graduated compression stockings which are documented to be 20-30 mmHg compression and these are thigh high. He reports great compliance with use. He is also had previous arterial work-up with no intervention recommended by letter, his vascular surgeon. He denies taking nutritional supplementation. He saw dermatology and had a biopsy of the ulcer site. He also was previously treated by infectious disease for various contaminations and infections. He is not antibiotics at this time nor does he have any redness or odor coming from the wound. He denies fever, chill, nausea, vomiting, loss of appetite. Progress of Wound: No new concerns or significant change. Denies increased drainage or pain. Left foot ulcer reopened. - Physical Exam Vital Signs Temp Pulse Resp BP 97.5 F L 90 18 147/80 H 11/11/20 09:38 11/11/20 09:38 11/11/20 09:38 11/11/20 09:38 General: Alert, Oriented x3, No apparent distress HEENT: Atraumatic, Normocephalic Extremities: No cyanosis, Edema Wound Measurements and Assessment WC - Nurse 1 - General Ulcer Measurement Start: 11/04/20 09:15 Freq: Status: Active Protocol: Activity Type Activity Date Activity User E-Sign Co-Sign Detail Recorded Client Recorded Date Recorded By Document 11/11/20 09:38 MW [id number] 11/11/20 09:47 MW 11/11/20 09:38 Wound Center Nurse 1 [Ulcer Assessment] #14 LEFT DORSAL FOOT -Combined with other wound No -Current Size (cm) - Length 0.3 -Current Size (cm) - Width 0.3 -Current Size (cm) - Depth 0.1 -Total Square Cm 0.09 -Photo Taken No -Epithelialization None Present -Tunneling No -Undermining/Tunneling No -Circular Undermining No -Exudate Amt Large -Exudate Type Serosanguineous -Wound Margin Flat & Intact -Granulation Amt Medium (34-66%) -Granulation Quality Red -Slough/Fibrin Yes -Necrosis Amt Small (1-33%) -Necrotic Tissue Type Adherent Slough -Structure Exposed N/A -Texture (Ara-wound Skin Appearance) Assessed, Scarring -Moisture (Ara-wound Skin Appearance Assessed,Dry/ ) Scaly -Color (Ara-wound Skin Appearance) Assessed, Hemosiderin Staining -Temperature (Ara-wound Skin No Abnormality Appearance) (Pt Warm) -Tenderness on Palpation (Ara-wound Yes Skin Appearance) -Ulcer Cleansing Rinsed/ Irrigated with Saline -Foul Odor after Cleansing No -Anesthetic Used 4% Lidocaine Solution #12 Medial Superior LLE -Combined with other wound No -Current Size (cm) - Length 3.2 -Current Size (cm) - Width 5.0 -Current Size (cm) - Depth 0.1 -Total Square Cm 16.00 -Photo Taken No -Epithelialization None Present -Tunneling No -Undermining/Tunneling No -Circular Undermining No -Exudate Amt Large -Exudate Type Serosanguineous -Wound Margin Flat & Intact -Granulation Amt Medium (34-66%) -Granulation Quality [place] -Slough/Fibrin Yes -Necrosis Amt Medium (34-66%) -Necrotic Tissue Type Adherent Slough -Structure Exposed N/A -Texture (Ara-wound Skin Appearance) Assessed, Localized Edema ,Scarring -Moisture (Ara-wound Skin Appearance Assessed,Dry/ ) Scaly -Color (Ara-wound Skin Appearance) Assessed, Hemosiderin Staining -Temperature (Ara-wound Skin No Abnormality Appearance) (Pt Warm) -Tenderness on Palpation (Ara-wound No Skin Appearance) -Ulcer Cleansing Rinsed/ Irrigated with Saline -Foul Odor after Cleansing No -Anesthetic Used 4% Lidocaine Solution #11 Medial Inferior LLE -Combined with other wound No -Current Size (cm) - Length 4.0 -Current Size (cm) - Width 3.8 -Current Size (cm) - Depth 0.1 -Total Square Cm 15.20 -Photo Taken No -Epithelialization None Present -Tunneling No -Undermining/Tunneling No -Circular Undermining No -Exudate Amt Large -Exudate Type Serosanguineous -Wound Margin Flat & Intact -Granulation Amt Medium (34-66%) -Granulation Quality [place] -Slough/Fibrin Yes -Necrosis Amt Medium (34-66%) -Necrotic Tissue Type Adherent Slough -Structure Exposed N/A -Texture (Ara-wound Skin Appearance) Assessed, Localized Edema ,Scarring -Moisture (Ara-wound Skin Appearance Assessed,Dry/ ) Scaly -Color (Ara-wound Skin Appearance) Assessed, Hemosiderin Staining -Temperature (Ara-wound Skin No Abnormality Appearance) (Pt Warm) -Tenderness on Palpation (Ara-wound Yes Skin Appearance) -Ulcer Cleansing Rinsed/ Irrigated with Saline -Foul Odor after Cleansing No -Anesthetic Used 4% Lidocaine Solution #10 Left Medial Ankle -Combined with other wound No -Current Size (cm) - Length 3.4 -Current Size (cm) - Width 3.5 -Current Size (cm) - Depth 0.1 -Total Square Cm 11.90 -Photo Taken No -Epithelialization None Present -Tunneling No -Undermining/Tunneling No -Circular Undermining No -Exudate Amt Large -Exudate Type Serosanguineous -Wound Margin Flat & Intact -Granulation Amt Medium (34-66%) -Granulation Quality [place] -Slough/Fibrin Yes -Necrosis Amt Medium (34-66%) -Necrotic Tissue Type Adherent Slough -Structure Exposed N/A -Texture (Ara-wound Skin Appearance) Assessed, Localized Edema ,Scarring -Moisture (Ara-wound Skin Appearance Assessed,Dry/ ) Scaly -Color (Ara-wound Skin Appearance) Assessed, Hemosiderin Staining -Temperature (Ara-wound Skin No Abnormality Appearance) (Pt Warm) -Tenderness on Palpation (Ara-wound Yes Skin Appearance) -Ulcer Cleansing Rinsed/ Irrigated with Saline -Foul Odor after Cleansing No -Anesthetic Used 4% Lidocaine Solution WC - Nurse 2 - General Ulcer CM Notes Start: 11/04/20 09:15 Freq: Status: Active Protocol: Activity Type Activity Date Activity User E-Sign Co-Sign Detail Recorded Client Recorded Date Recorded By Document 11/11/20 10:17 MW [id number] 11/11/20 10:26 MW 11/11/20 10:17 Wound Center Nurse 2 [Procedure/Treatment] #14 LEFT DORSAL FOOT -Time 10:18 -Correct Patient Yes -Correct Side, Site, Position Yes -Correct Procedure Yes -Procedure Performed Yes -Type of Procedure Debridement -Clinical Debridement Subcutaneous -Tissue Removed Subcutaneous -Post Debridement (cm) - Length 0.4 -Post Debridement (cm) - Width 0.3 -Post Debridement (cm) - Depth 0.1 -Total Square (Post) (cm) 0.12 -Area of Debridement (cm) - Length 0.4 -Area of Debridement (cm) - Width 0.3 -Total Square (Area) (cm) 0.12 -Tunneling No -Undermining/Tunneling No -Circular Undermining No -Wound/Ulcer Outcome Not Healed -Ulcer Cleansing Rinsed/ Irrigated with Saline -Foul Odor after Cleansing No -Bioengineered Tissue No -Bleeding Controlled with Pressure -Offloading No -Treatment Response Procedure Tolerated Well -Debridement - Subq, 1st 20sq cm Yes -Debridement, SubQ, ea addt'l 20sq cm 1 or part thereof #12 Medial Superior LLE -Time 10:19 -Correct Patient Yes -Correct Side, Site, Position Yes -Correct Procedure Yes -Procedure Performed Yes -Type of Procedure Debridement -Clinical Debridement Subcutaneous -Tissue Removed Subcutaneous -Post Debridement (cm) - Length 3.0 -Post Debridement (cm) - Width 4.6 -Post Debridement (cm) - Depth 0.1 -Total Square (Post) (cm) 13.80 -Area of Debridement (cm) - Length 3.0 -Area of Debridement (cm) - Width 4.6 -Total Square (Area) (cm) 13.80 -Tunneling No -Undermining/Tunneling No -Circular Undermining No -Wound/Ulcer Outcome Not Healed -Ulcer Cleansing Rinsed/ Irrigated with Saline -Foul Odor after Cleansing No -Bioengineered Tissue No -Bleeding Controlled with Pressure -Offloading No -Treatment Response Procedure Tolerated Well -Debridement - Subq, 1st 20sq cm No #11 Medial Inferior LLE -Time 10:19 -Correct Patient Yes -Correct Side, Site, Position Yes -Correct Procedure Yes -Procedure Performed Yes -Type of Procedure Debridement -Clinical Debridement Subcutaneous -Tissue Removed Subcutaneous -Post Debridement (cm) - Length 3.0 -Post Debridement (cm) - Width 4.5 -Post Debridement (cm) - Depth 0.1 -Total Square (Post) (cm) 13.50 -Area of Debridement (cm) - Length 3.0 -Area of Debridement (cm) - Width 4.5 -Total Square (Area) (cm) 13.50 -Tunneling No -Undermining/Tunneling No -Circular Undermining No -Wound/Ulcer Outcome Not Healed -Ulcer Cleansing Rinsed/ Irrigated with Saline -Foul Odor after Cleansing No -Bioengineered Tissue No -Bleeding Controlled with Pressure -Offloading No -Treatment Response Procedure Tolerated Well -Debridement - Subq, 1st 20sq cm No #10 Left Medial Ankle -Time 10:19 -Correct Patient Yes -Correct Side, Site, Position Yes -Correct Procedure Yes -Procedure Performed Yes -Type of Procedure Debridement -Clinical Debridement Subcutaneous -Tissue Removed Subcutaneous -Post Debridement (cm) - Length 3.6 -Post Debridement (cm) - Width 3.4 -Post Debridement (cm) - Depth 0.2 -Total Square (Post) (cm) 12.24 -Area of Debridement (cm) - Length 3.6 -Area of Debridement (cm) - Width 3.4 -Total Square (Area) (cm) 12.24 -Tunneling No -Undermining/Tunneling No -Circular Undermining No -Wound/Ulcer Outcome Not Healed -Ulcer Cleansing Rinsed/ Irrigated with Saline -Foul Odor after Cleansing No -Bioengineered Tissue No -Bleeding Controlled with Pressure -Offloading No -Treatment Response Procedure Tolerated Well -Debridement - Subq, 1st 20sq cm No [See Physician Procedure note for Specifics] Pain Scale: 0-10 Numeric [Pain] -Is Patient Pain Free? Yes WC - Nurse 3 - General Ulcer D/C NN Start: 11/04/20 09:15 Freq: Status: Active Protocol: Activity Type Activity Date Activity User E-Sign Co-Sign Detail Recorded Client Recorded Date Recorded By Document 11/11/20 10:34 MW [id number] 11/11/20 10:36 MW 11/11/20 10:34 Wound Care Nurse 3 [Wound Dressing] #14 LEFT DORSAL FOOT -Ulcer Cleansing Rinsed/ Irrigated with Saline -Foul Odor after Cleansing No -Negative Pressure Wound Therapy N/A -Other Dressing aquacel ag -Primary Dressing Covered/Secured Dry Gauze & with Roll Gauze, Secured with Tape -Other Covering kerramax care, abd pad #12 Medial Superior LLE -Ulcer Cleansing Rinsed/ Irrigated with Saline -Foul Odor after Cleansing No -Negative Pressure Wound Therapy N/A -Other Dressing aquacel ag -Primary Dressing Covered/Secured Dry Gauze & with Roll Gauze, Secured with Tape -Other Covering kerramac care, abd pad #11 Medial Inferior LLE -Ulcer Cleansing Rinsed/ Irrigated with Saline -Foul Odor after Cleansing No -Negative Pressure Wound Therapy N/A -Other Dressing aquacel ag -Primary Dressing Covered/Secured Dry Gauze & with Roll Gauze, Secured with Tape -Other Covering kerramax care, abd pad #10 Left Medial Ankle -Ulcer Cleansing Rinsed/ Irrigated with Saline -Foul Odor after Cleansing No -Negative Pressure Wound Therapy N/A -Other Dressing aquqcel ag -Primary Dressing Covered/Secured Dry Gauze & with Roll Gauze, Secured with Tape -Other Covering kerramax care, abd pad [Post Procedure Tolerated] -Treatment Response Procedure Tolerated Well Teaching: Wound Center [Wound Center Education] (Items with an * have Printed Materials Available- Please identify what is given to patient under the Teaching materials given to patient and caregiver Section. Dressing Your Wound -Person Taught Patient -Teaching Method Discussion -Response to teaching Verbalize understanding WC - Visit Discharge [Visit Discharge Information] -Discharge Condition Stable -Ambulatory Status Ambulatory -Transportation Private Auto -Accompanied by self -Medication Reconcilliation completed No & provided to patient/care provider -Clinical Summary of Care Provided Yes Debridement Note Post-Debridement Measurements/Treatment WC - Nurse 2 - General Ulcer CM Notes Start: 11/04/20 09:15 Freq: Status: Active Protocol: Activity Type Activity Date Activity User E-Sign Co-Sign Detail Recorded Client Recorded Date Recorded By Document 11/04/20 09:35 MW [id number] 11/04/20 09:41 MW Document 11/11/20 10:17 MW [id number] 11/11/20 10:26 MW 11/04/20 11/11/20 09:35 10:17 Wound Center Nurse 2 #14 LEFT DORSAL FOOT -Time 09:35 10:18 -Correct Patient Yes Yes -Correct Side, Site, Position Yes Yes -Correct Procedure Yes Yes -Procedure Performed No Yes -Type of Procedure Debridement -Clinical Debridement Subcutaneous -Tissue Removed Subcutaneous -Post Debridement (cm) - Length 0 0.4 -Post Debridement (cm) - Width 0 0.3 -Post Debridement (cm) - Depth 0 0.1 -Total Square (Post) (cm) 0 0.12 -Area of Debridement (cm) - Length 0.4 -Area of Debridement (cm) - Width 0.3 -Total Square (Area) (cm) 0.12 -Tunneling No -Undermining/Tunneling No -Circular Undermining No -Wound/Ulcer Outcome Not Healed -Ulcer Cleansing Rinsed/ Irrigated with Saline -Foul Odor after Cleansing No -Bioengineered Tissue No -Bleeding Controlled with Pressure -Offloading No -Treatment Response Procedure Tolerated Well -Debridement - Subq, 1st 20sq cm Yes -Debridement, SubQ, ea addt'l 20sq cm 1 or part thereof #12 Medial Superior LLE -Time 09:35 10:19 -Correct Patient Yes Yes -Correct Side, Site, Position Yes Yes -Correct Procedure Yes Yes -Procedure Performed Yes Yes -Type of Procedure Debridement Debridement -Clinical Debridement Subcutaneous Subcutaneous -Tissue Removed Subcutaneous Subcutaneous -Post Debridement (cm) - Length 2.8 3.0 -Post Debridement (cm) - Width 5.0 4.6 -Post Debridement (cm) - Depth 0.1 0.1 -Total Square (Post) (cm) 14.00 13.80 -Area of Debridement (cm) - Length 2.8 3.0 -Area of Debridement (cm) - Width 5.0 4.6 -Total Square (Area) (cm) 14.00 13.80 -Tunneling No No -Undermining/Tunneling No No -Circular Undermining No No -Wound/Ulcer Outcome Not Healed Not Healed -Ulcer Cleansing Rinsed/ Rinsed/ Irrigated with Irrigated with Saline Saline -Foul Odor after Cleansing No No -Bioengineered Tissue No No -Bleeding Controlled with Pressure Pressure -Offloading No No -Treatment Response Procedure Procedure Tolerated Well Tolerated Well -Debridement - Subq, 1st 20sq cm Yes No #11 Medial Inferior LLE -Time 09:35 10:19 -Correct Patient Yes Yes -Correct Side, Site, Position Yes Yes -Correct Procedure Yes Yes -Procedure Performed Yes Yes -Type of Procedure Debridement Debridement -Clinical Debridement Subcutaneous Subcutaneous -Tissue Removed Subcutaneous Subcutaneous -Post Debridement (cm) - Length 3.0 3.0 -Post Debridement (cm) - Width 4.5 4.5 -Post Debridement (cm) - Depth 0.1 0.1 -Total Square (Post) (cm) 13.50 13.50 -Area of Debridement (cm) - Length 3.0 3.0 -Area of Debridement (cm) - Width 4.5 4.5 -Total Square (Area) (cm) 13.50 13.50 -Tunneling No No -Undermining/Tunneling No No -Circular Undermining No No -Wound/Ulcer Outcome Not Healed Not Healed -Ulcer Cleansing Rinsed/ Rinsed/ Irrigated with Irrigated with Saline Saline -Foul Odor after Cleansing No No -Bioengineered Tissue No No -Bleeding Controlled with Pressure Pressure -Offloading No No -Treatment Response Procedure Procedure Tolerated Well Tolerated Well -Debridement - Subq, 1st 20sq cm No No #10 Left Medial Ankle -Time 09:36 10:19 -Correct Patient Yes Yes -Correct Side, Site, Position Yes Yes -Correct Procedure Yes Yes -Procedure Performed Yes Yes -Type of Procedure Debridement Debridement -Clinical Debridement Subcutaneous Subcutaneous -Tissue Removed Subcutaneous Subcutaneous -Post Debridement (cm) - Length 3.2 3.6 -Post Debridement (cm) - Width 3.2 3.4 -Post Debridement (cm) - Depth 0.2 0.2 -Total Square (Post) (cm) 10.24 12.24 -Area of Debridement (cm) - Length 3.2 3.6 -Area of Debridement (cm) - Width 3.2 3.4 -Total Square (Area) (cm) 10.24 12.24 -Tunneling No No -Undermining/Tunneling No No -Circular Undermining No No -Wound/Ulcer Outcome Not Healed Not Healed -Ulcer Cleansing Rinsed/ Rinsed/ Irrigated with Irrigated with Saline Saline -Foul Odor after Cleansing No No -Bioengineered Tissue No No -Bleeding Controlled with Pressure Pressure -Offloading No No -Treatment Response Procedure Procedure Tolerated Well Tolerated Well -Debridement - Subq, 1st 20sq cm No No Pain Scale: 0-10 Numeric Is Patient Pain Free? Yes Yes WC - Nurse 3 - General Ulcer D/C NN Start: 11/04/20 09:15 Freq: Status: Active Protocol: Activity Type Activity Date Activity User E-Sign Co-Sign Detail Recorded Client Recorded Date Recorded By Document 11/11/20 10:34 MW [id number] 11/11/20 10:36 MW 11/11/20 10:34 Wound Care Nurse 3 #14 LEFT DORSAL FOOT -Ulcer Cleansing Rinsed/ Irrigated with Saline -Foul Odor after Cleansing No -Negative Pressure Wound Therapy N/A -Other Dressing aquacel ag -Primary Dressing Covered/Secured with Dry Gauze & Roll Gauze, Secured with Tape -Other Covering kerramax care, abd pad #12 Medial Superior LLE -Ulcer Cleansing Rinsed/ Irrigated with Saline -Foul Odor after Cleansing No -Negative Pressure Wound Therapy N/A -Other Dressing aquacel ag -Primary Dressing Covered/Secured with Dry Gauze & Roll Gauze, Secured with Tape -Other Covering [place] care, abd pad #11 Medial Inferior LLE -Ulcer Cleansing Rinsed/ Irrigated with Saline -Foul Odor after Cleansing No -Negative Pressure Wound Therapy N/A -Other Dressing aquacel ag -Primary Dressing Covered/Secured with Dry Gauze & Roll Gauze, Secured with Tape -Other Covering kerramax care, abd pad #10 Left Medial Ankle -Ulcer Cleansing Rinsed/ Irrigated with Saline -Foul Odor after Cleansing No -Negative Pressure Wound Therapy N/A -Other Dressing aquqcel ag -Primary Dressing Covered/Secured with Dry Gauze & Roll Gauze, Secured with Tape -Other Covering kerramax care, abd pad Treatment Response Procedure Tolerated Well Teaching: Wound Center Dressing Your Wound -Person Taught Patient -Teaching Method Discussion -Response to teaching Verbalize understanding WC - Visit Discharge Discharge Condition Stable Ambulatory Status Ambulatory Transportation Private Auto Accompanied by self Medication Reconcilliation completed & No provided to patient/care provider Clinical Summary of Care Provided Yes Wound debrided: Left Foot Type of Debridement: Excisional debridement Anesthesia Used: 4% Lidocaine Solution, 5% Lidocaine Gel Depth: Down to and including healthy tissue, in the subcutaneous layer Percentage of wound debrided: 100 Instrument Used: 3mm curette Tissue Removed: Slough and devitalized tissue Severity: Fat Layer Exposed Amount of bleeding with debridement: Mild Bleeding Controlled with: Pressure Patient tolerated procedure well - Additional Wound Wound debrided: Left ankle (medial) Type of Debridement: Excisional debridement Anesthesia Used: 4% Lidocaine Solution, 5% Lidocaine Gel Depth: Down to and including healthy tissue, in the subcutaneous layer Percentage of wound debrided: 100 Instrument Used: 5mm curette Tissue Removed: Slough and devitalized tissue Severity: Fat Layer Exposed Amount of bleeding with debridement: Mild Bleeding Controlled with: Pressure Patient tolerated procedure: Patient tolerated procedure well - Additional Wound Wound debrided: Left lower extremity (inferior) Type of Debridement: Excisional debridement Anesthesia Used: 4% Lidocaine Solution Depth: Down to and including healthy tissue, in the subcutaneous layer Percentage of wound debrided: 100 Instrument Used: 5mm curette Tissue Removed: Slough and devitalized tissue Severity: Fat Layer Exposed Amount of bleeding with debridement: Mild Bleeding Controlled with: Pressure Patient tolerated procedure: Patient tolerated procedure well - Additional Wound Wound debrided: Left lower extremity (superior) Type of Debridement: Excisional debridement Anesthesia Used: 4% Lidocaine Solution, 5% Lidocaine Gel Depth: Down to and including healthy tissue, in the subcutaneous layer Percentage of wound debrided: 100 Instrument Used: 5mm curette Tissue Removed: Slough and devitalized tissue Severity: Fat Layer Exposed Amount of bleeding with debridement: Mild Bleeding Controlled with: Pressure Patient tolerated procedure: Patient tolerated procedure well Assessment/Plan Active Problems Ulcer of left lower extremity with fat layer exposed (Chronic) PVD (peripheral vascular disease) (Chronic) Chronic venous insufficiency (Chronic) Venous stasis of lower extremity (Chronic) Assessment: Chronic left leg ulcer. Venous insufficiency. Leg edema. Delayed ulcer healing. Plan: Debridement done as documented above, procedure was well tolerated. Continue Aquacel Ag and keramax. Change daily to twice daily depending on drainage. Cleanse daily. Continue use of compression stockings, leg elevation and exercise. Increased protein intake , protein supplements, zinc and vitamin C also recommended. His questions were answered and he was advised to call with any further questions or concerns. Follow-up in 1 week. This note was generated with [employer] software. It may contain incorrect words, spelling, and punctuation that were not noted in checking the note before signing. [id number]: [id number] Lakeisha subq tissue 20 sq cm/< Add On Codes: [id number] Lakeisha subq tissue add-on
[2020-11-18 09:06] VITALS: BP 136/90; PULSE 89; RESP 18; TEMP 36.6; BMI 31.4
--- NOTE | 2020-11-18 10:08 | PCM.WC.PN ---
(1) Ulcer of left lower extremity with fat layer exposed Status: Chronic Code(s): L97.922 - Non-pressure chronic ulcer of unspecified part of left lower leg with fat layer exposed (2) Chronic venous insufficiency Status: Chronic (3) PVD (peripheral vascular disease) Status: Chronic Code(s): I73.9 - Peripheral vascular disease, unspecified (4) Venous stasis of lower extremity Status: Chronic Code(s): I87.8 - Other specified disorders of veins Type of Wound Date of Service: 11/18/20 Chief Complaint: ulcers to the left lower leg History of Wound: This is a 54-year-old male presents to wound healing center with a long-standing history of chronic venous insufficiency, chronic venous hypertension, lower extremity edema, lower extremity pain, and chronic left lower extremity ulcer. 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 He is currently wearing graduated compression stockings which are documented to be 20-30 mmHg compression and these are thigh high. He reports great compliance with use. He is also had previous arterial work-up with no intervention recommended by letter, his vascular surgeon. He denies taking nutritional supplementation. He saw dermatology and had a biopsy of the ulcer site. He also was previously treated by infectious disease for various contaminations and infections. He is not antibiotics at this time nor does he have any redness or odor coming from the wound. He denies fever, chill, nausea, vomiting, loss of appetite. Progress of Wound: Stable ulcers. Left foot healed. - Physical Exam Vital Signs Temp Pulse Resp BP 97.9 F 89 18 136/90 H 11/18/20 09:06 11/18/20 09:06 11/18/20 09:06 11/18/20 09:06 General: Alert, Oriented x3, Cooperative, No apparent distress HEENT: Atraumatic, Normocephalic Oral: Moist Mucosa Neck: Supple Lungs: Normal air movement Extremities: No cyanosis, Edema Skin: Ulcer/ Wound Wound Measurements and Assessment WC - Nurse 1 - General Ulcer Measurement Start: 11/04/20 09:15 Freq: Status: Active Protocol: Activity Type Activity Date Activity User E-Sign Co-Sign Detail Recorded Client Recorded Date Recorded By Document 11/18/20 09:06 TIFFANY [id number] 11/18/20 09:13 TIFFANY 11/18/20 09:06 Wound Center Nurse 1 [Ulcer Assessment] #14 LEFT DORSAL FOOT -Current Size (cm) - Length 0.5 -Current Size (cm) - Width 0.5 -Current Size (cm) - Depth 0.1 -Total Square Cm 0.25 -Photo Taken No -Exudate Amt None Present -Wound Margin Thickened -Granulation Amt None Present (0 %) -Necrosis Amt Small (1-33%) -Necrotic Tissue Type Eschar -Structure Exposed N/A -Texture (Ara-wound Skin Appearance) Scarring -Moisture (Ara-wound Skin Appearance Dry/Scaly ) -Color (Aar-wound Skin Appearance) Hemosiderin Staining -Temperature (Ara-wound Skin No Abnormality Appearance) (Pt Warm) -Tenderness on Palpation (Ara-wound No Skin Appearance) -Ulcer Cleansing Wound Cleanser -Foul Odor after Cleansing No -Anesthetic Used 4% Lidocaine Solution #12 Medial Superior LLE -Current Size (cm) - Length 2.1 -Current Size (cm) - Width 5 -Current Size (cm) - Depth 0.2 -Total Square Cm 10.5 -Photo Taken No -Exudate Amt Medium -Exudate Type Serosanguineous -Wound Margin Distinct, Outline Attached -Granulation Amt Medium (34-66%) -Granulation Quality Red -Necrosis Amt Medium (34-66%) -Necrotic Tissue Type Adherent Slough -Structure Exposed N/A -Texture (Ara-wound Skin Appearance) Scarring -Moisture (Ara-wound Skin Appearance Dry/Scaly ) -Color (Ara-wound Skin Appearance) Hemosiderin Staining -Temperature (Ara-wound Skin No Abnormality Appearance) (Pt Warm) -Tenderness on Palpation (Aar-wound No Skin Appearance) -Ulcer Cleansing Wound Cleanser -Foul Odor after Cleansing No -Anesthetic Used 4% Lidocaine Solution #11 Medial Inferior LLE -Current Size (cm) - Length 3.4 -Current Size (cm) - Width 4 -Current Size (cm) - Depth 0.2 -Total Square Cm 13.6 -Photo Taken No -Exudate Amt Medium -Exudate Type Serosanguineous -Wound Margin Distinct, Outline Attached -Granulation Amt Medium (34-66%) -Granulation Quality Red -Necrosis Amt Medium (34-66%) -Necrotic Tissue Type Adherent Slough -Structure Exposed N/A -Texture (Ara-wound Skin Appearance) Scarring -Color (Ara-wound Skin Appearance) Hemosiderin Staining -Temperature (Ara-wound Skin No Abnormality Appearance) (Pt Warm) -Tenderness on Palpation (Ara-wound No Skin Appearance) -Ulcer Cleansing Wound Cleanser -Foul Odor after Cleansing No -Anesthetic Used 4% Lidocaine Solution #10 Left Medial Ankle -Current Size (cm) - Length 3.5 -Current Size (cm) - Width 3.9 -Current Size (cm) - Depth 0.2 -Total Square Cm 13.65 -Photo Taken No -Exudate Amt Medium -Exudate Type Serosanguineous -Wound Margin Thickened -Granulation Amt Small (1-33%) -Granulation Quality Red -Necrosis Amt Large (67-100%) -Necrotic Tissue Type Adherent Slough -Structure Exposed N/A -Texture (Ara-wound Skin Appearance) Scarring -Moisture (Ara-wound Skin Appearance Dry/Scaly ) -Color (Ara-wound Skin Appearance) Hemosiderin Staining -Temperature (Ara-wound Skin No Abnormality Appearance) (Pt Warm) -Tenderness on Palpation (Ara-wound No Skin Appearance) -Ulcer Cleansing Wound Cleanser -Foul Odor after Cleansing No -Anesthetic Used 4% Lidocaine Solution [Edema Assessment] -Left Calf (cm) 36 -Left Ankle (cm) 22.8 WC - Nurse 2 - General Ulcer CM Notes Start: 11/04/20 09:15 Freq: Status: Active Protocol: Activity Type Activity Date Activity User E-Sign Co-Sign Detail Recorded Client Recorded Date Recorded By Document 11/18/20 09:27 MW [id number] 11/18/20 09:37 MW 11/18/20 09:27 Wound Center Nurse 2 [Procedure/Treatment] #14 LEFT DORSAL FOOT -Time 09:27 -Correct Patient Yes -Correct Side, Site, Position Yes -Correct Procedure Yes -Procedure Performed No -Post Debridement (cm) - Length 0 -Post Debridement (cm) - Width 0 -Post Debridement (cm) - Depth 0 -Total Square (Post) (cm) 0 -Tunneling No -Undermining/Tunneling No -Circular Undermining No #12 Medial Superior LLE -Time 09:28 -Correct Patient Yes -Correct Side, Site, Position Yes -Correct Procedure Yes -Procedure Performed Yes -Type of Procedure Debridement -Clinical Debridement Subcutaneous -Tissue Removed Subcutaneous -Post Debridement (cm) - Length 3.0 -Post Debridement (cm) - Width 4.5 -Post Debridement (cm) - Depth 0.2 -Total Square (Post) (cm) 13.50 -Area of Debridement (cm) - Length 3.0 -Area of Debridement (cm) - Width 4.5 -Total Square (Area) (cm) 13.50 -Tunneling No -Undermining/Tunneling No -Circular Undermining No -Wound/Ulcer Outcome Not Healed -Ulcer Cleansing Rinsed/ Irrigated with Saline -Foul Odor after Cleansing No -Bioengineered Tissue No -Bleeding Controlled with Pressure -Offloading No -Treatment Response Procedure Tolerated Well -Debridement - Subq, 1st 20sq cm No #11 Medial Inferior LLE -Time 09:28 -Correct Patient Yes -Correct Side, Site, Position Yes -Correct Procedure Yes -Procedure Performed Yes -Type of Procedure Debridement -Clinical Debridement Subcutaneous -Tissue Removed Subcutaneous -Post Debridement (cm) - Length 3.2 -Post Debridement (cm) - Width 4.0 -Post Debridement (cm) - Depth 0.1 -Total Square (Post) (cm) 12.80 -Area of Debridement (cm) - Length 3.2 -Area of Debridement (cm) - Width 4.0 -Total Square (Area) (cm) 12.80 -Tunneling No -Undermining/Tunneling No -Circular Undermining No -Wound/Ulcer Outcome Not Healed -Ulcer Cleansing Rinsed/ Irrigated with Saline -Foul Odor after Cleansing No -Bioengineered Tissue No -Bleeding Controlled with Pressure -Offloading No -Debridement - Subq, 20sq cm No #10 Left Medial Ankle -Time 09:28 -Correct Patient Yes -Correct Side, Site, Position Yes -Correct Procedure Yes -Procedure Performed Yes -Type of Procedure Debridement -Clinical Debridement Subcutaneous -Tissue Removed Subcutaneous -Post Debridement (cm) - Length 3.0 -Post Debridement (cm) - Width 3.2 -Post Debridement (cm) - Depth 0.2 -Total Square (Post) (cm) 9.60 -Area of Debridement (cm) - Length 3.0 -Area of Debridement (cm) - Width 3.2 -Total Square (Area) (cm) 9.60 -Tunneling No -Undermining/Tunneling No -Circular Undermining No -Wound/Ulcer Outcome Not Healed -Ulcer Cleansing Rinsed/ Irrigated with Saline -Foul Odor after Cleansing No -Bioengineered Tissue No -Bleeding Controlled with Pressure -Offloading No -Treatment Response Procedure Tolerated Well -Debridement - Subq, 1st 20sq cm No [See Physician Procedure note for Specifics] Pain Scale: 0-10 Numeric [Pain] -Is Patient Pain Free? Yes - Nurse 3 - General Ulcer D/C NN Start: 11/04/20 09:15 Freq: Status: Active Protocol: Activity Type Activity Date Activity User E-Sign Co-Sign Detail Recorded Client Recorded Date Recorded By Document 11/18/20 09:49 DL [id number] 11/18/20 09:56 DL 11/18/20 09:49 Wound Care Nurse 3 [Wound Dressing] #12 Medial Superior LLE -Ulcer Cleansing Wound Cleanser -Foul Odor after Cleansing No -Primary Dressing Applied Aquacel AG 4x4 -Primary Dressing Covered/Secured Dry Gauze, with Secured with Tape -Aquacel AG 4x4 1 #11 Medial Inferior LLE -Ulcer Cleansing Wound Cleanser -Foul Odor after Cleansing No -Other Dressing Aquacel ag/ erraMax -Primary Dressing Covered/Secured Dry Gauze, with Secured with Tape #10 Left Medial Ankle -Ulcer Cleansing Wound Cleanser -Foul Odor after Cleansing No -Other Dressing aquacel ag/ KerraMax -Primary Dressing Covered/Secured Dry Gauze, with Secured with Tape [Compression Applied] Left -Other stockings [Post Procedure Tolerated] -Treatment Response Procedure Tolerated Well Pain Scale: 0-10 Numeric [Pain] -Is Patient Pain Free? Yes - Visit Discharge [Visit Discharge Information] -Discharge Condition Stable -Ambulatory Status Ambulatory -Transportation Private Auto Musculoskeletal: No Muscle Wasting Neurological: Cranial nerves II-XII grossly intact Psych/Mental Status: Normal Affect Debridement Note Post-Debridement Measurements/Treatment - Nurse 2 - General Ulcer CM Notes Start: 11/04/20 09:15 Freq: Status: Active Protocol: Activity Type Activity Date Activity User E-Sign Co-Sign Detail Recorded Client Recorded Date Recorded By Document 11/04/20 09:35 MW [id number] 11/04/20 09:41 MW Document 11/11/20 10:17 MW [id number] 11/11/20 10:26 MW Document 11/18/20 09:27 MW [id number] 11/18/20 09:37 MW 11/04/20 11/11/20 11/18/20 09:35 10:17 09:27 Wound Center Nurse 2 #14 LEFT DORSAL FOOT -Time 09:35 10:18 09:27 -Correct Patient Yes Yes Yes -Correct Side, Site, Position Yes Yes Yes -Correct Procedure Yes Yes Yes -Procedure Performed No Yes No -Type of Procedure Debridement -Clinical Debridement Subcutaneous -Tissue Removed Subcutaneous -Post Debridement (cm) - Length 0 0.4 0 -Post Debridement (cm) - Width 0 0.3 0 -Post Debridement (cm) - Depth 0 0.1 0 -Total Square (Post) (cm) 0 0.12 0 -Area of Debridement (cm) - Length 0.4 -Area of Debridement (cm) - Width 0.3 -Total Square (Area) (cm) 0.12 -Tunneling No No -Undermining/Tunneling No No -Circular Undermining No No -Wound/Ulcer Outcome Not Healed -Ulcer Cleansing Rinsed/ Irrigated with Saline -Foul Odor after Cleansing No -Bioengineered Tissue No -Bleeding Controlled with Pressure -Offloading No -Treatment Response Procedure Tolerated Well -Debridement - Subq, 1st 20sq cm Yes -Debridement, SubQ, ea addt'l 20sq cm 1 or part thereof #12 Medial Superior LLE -Time 09:35 10:19 09:28 -Correct Patient Yes Yes Yes -Correct Side, Site, Position Yes Yes Yes -Correct Procedure Yes Yes Yes -Procedure Performed Yes Yes Yes -Type of Procedure Debridement Debridement Debridement -Clinical Debridement Subcutaneous Subcutaneous Subcutaneous -Tissue Removed Subcutaneous Subcutaneous Subcutaneous -Post Debridement (cm) - Length 2.8 3.0 3.0 -Post Debridement (cm) - Width 5.0 4.6 4.5 -Post Debridement (cm) - Depth 0.1 0.1 0.2 -Total Square (Post) (cm) 14.00 13.80 13.50 -Area of Debridement (cm) - Length 2.8 3.0 3.0 -Area of Debridement (cm) - Width 5.0 4.6 4.5 -Total Square (Area) (cm) 14.00 13.80 13.50 -Tunneling No No No -Undermining/Tunneling No No No -Circular Undermining No No No -Wound/Ulcer Outcome Not Healed Not Healed Not Healed -Ulcer Cleansing Rinsed/ Rinsed/ Rinsed/ Irrigated with Irrigated with Irrigated with Saline Saline Saline -Foul Odor after Cleansing No No No -Bioengineered Tissue No No No -Bleeding Controlled with Pressure Pressure Pressure -Offloading No No No -Treatment Response Procedure Procedure Procedure Tolerated Well Tolerated Well Tolerated Well -Debridement - Subq, 1st 20sq cm Yes No No -Debridement, SubQ, ea addt'l 20sq cm 1 or part thereof #11 Medial Inferior LLE -Time 09:35 10:19 09:28 -Correct Patient Yes Yes Yes -Correct Side, Site, Position Yes Yes Yes -Correct Procedure Yes Yes Yes -Procedure Performed Yes Yes Yes -Type of Procedure Debridement Debridement Debridement -Clinical Debridement Subcutaneous Subcutaneous Subcutaneous -Tissue Removed Subcutaneous Subcutaneous Subcutaneous -Post Debridement (cm) - Length 3.0 3.0 3.2 -Post Debridement (cm) - Width 4.5 4.5 4.0 -Post Debridement (cm) - Depth 0.1 0.1 0.1 -Total Square (Post) (cm) 13.50 13.50 12.80 -Area of Debridement (cm) - Length 3.0 3.0 3.2 -Area of Debridement (cm) - Width 4.5 4.5 4.0 -Total Square (Area) (cm) 13.50 13.50 12.80 -Tunneling No No No -Undermining/Tunneling No No No -Circular Undermining No No No -Wound/Ulcer Outcome Not Healed Not Healed Not Healed -Ulcer Cleansing Rinsed/ Rinsed/ Rinsed/ Irrigated with Irrigated with Irrigated with Saline Saline Saline -Foul Odor after Cleansing No No No -Bioengineered Tissue No No No -Bleeding Controlled with Pressure Pressure Pressure -Offloading No No No -Treatment Response Procedure Procedure Tolerated Well Tolerated Well -Debridement - Subq, 1st 20sq cm No No No #10 Left Medial Ankle -Time 09:36 10:19 09:28 -Correct Patient Yes Yes Yes -Correct Side, Site, Position Yes Yes Yes -Correct Procedure Yes Yes Yes -Procedure Performed Yes Yes Yes -Type of Procedure Debridement Debridement Debridement -Clinical Debridement Subcutaneous Subcutaneous Subcutaneous -Tissue Removed Subcutaneous Subcutaneous Subcutaneous -Post Debridement (cm) - Length 3.2 3.6 3.0 -Post Debridement (cm) - Width 3.2 3.4 3.2 -Post Debridement (cm) - Depth 0.2 0.2 0.2 -Total Square (Post) (cm) 10.24 12.24 9.60 -Area of Debridement (cm) - Length 3.2 3.6 3.0 -Area of Debridement (cm) - Width 3.2 3.4 3.2 -Total Square (Area) (cm) 10.24 12.24 9.60 -Tunneling No No No -Undermining/Tunneling No No No -Circular Undermining No No No -Wound/Ulcer Outcome Not Healed Not Healed Not Healed -Ulcer Cleansing Rinsed/ Rinsed/ Rinsed/ Irrigated with Irrigated with Irrigated with Saline Saline Saline -Foul Odor after Cleansing No No No -Bioengineered Tissue No No No -Bleeding Controlled with Pressure Pressure Pressure -Offloading No No No -Treatment Response Procedure Procedure Procedure Tolerated Well Tolerated Well Tolerated Well -Debridement - Subq, 1st 20sq cm No No No Pain Scale: 0-10 Numeric Is Patient Pain Free? Yes Yes Yes WC - Nurse 3 - General Ulcer D/C NN Start: 11/04/20 09:15 Freq: Status: Active Protocol: Activity Type Activity Date Activity User E-Sign Co-Sign Detail Recorded Client Recorded Date Recorded By Document 11/11/20 10:34 MW [id number] 11/11/20 10:36 MW Document 11/18/20 09:49 DL [id number] 11/18/20 09:56 DL 11/11/20 11/18/20 10:34 09:49 Wound Care Nurse 3 #14 LEFT DORSAL FOOT -Ulcer Cleansing Rinsed/ Irrigated with Saline -Foul Odor after Cleansing No -Negative Pressure Wound Therapy N/A -Other Dressing aquacel ag -Primary Dressing Covered/Secured with Dry Gauze & Roll Gauze, Secured with Tape -Other Covering kerramax care, abd pad #12 Medial Superior LLE -Ulcer Cleansing Rinsed/ Wound Cleanser Irrigated with Saline -Foul Odor after Cleansing No No -Negative Pressure Wound Therapy N/A -Primary Dressing Applied Aquacel AG 4x4 -Other Dressing aquacel ag -Primary Dressing Covered/Secured with Dry Gauze & Dry Gauze, Roll Gauze, Secured with Secured with Tape Tape -Other Covering [place] care, abd pad -Aquacel AG 4x4 1 #11 Medial Inferior LLE -Ulcer Cleansing Rinsed/ Wound Cleanser Irrigated with Saline -Foul Odor after Cleansing No No -Negative Pressure Wound Therapy N/A -Other Dressing aquacel ag Aquacel ag/ erraMax -Primary Dressing Covered/Secured with Dry Gauze & Dry Gauze, Roll Gauze, Secured with Secured with Tape Tape -Other Covering kerramax care, abd pad #10 Left Medial Ankle -Ulcer Cleansing Rinsed/ Wound Cleanser Irrigated with Saline -Foul Odor after Cleansing No No -Negative Pressure Wound Therapy N/A -Other Dressing aquqcel ag aquacel ag/ KerraMax -Primary Dressing Covered/Secured with Dry Gauze & Dry Gauze, Roll Gauze, Secured with Secured with Tape Tape -Other Covering kerramax care, abd pad Left -Other stockings Treatment Response Procedure Procedure Tolerated Well Tolerated Well Pain Scale: 0-10 Numeric Is Patient Pain Free? Yes Teaching: Wound Center Dressing Your Wound -Person Taught Patient -Teaching Method Discussion -Response to teaching Verbalize understanding WC - Visit Discharge Discharge Condition Stable Stable Ambulatory Status Ambulatory Ambulatory Transportation Private Auto Private Auto Accompanied by self Medication Reconcilliation completed & No provided to patient/care provider Clinical Summary of Care Provided Yes Wound debrided: Left medial ankle Type of Debridement: Excisional debridement Anesthesia Used: 4% Lidocaine Solution Depth: Down to and including healthy tissue, in the subcutaneous layer Percentage of wound debrided: 100 Instrument Used: 5mm curette Tissue Removed: Slough and devitalized tissue Severity: Fat Layer Exposed Amount of bleeding with debridement: Mild Bleeding Controlled with: Pressure Patient tolerated procedure well - Additional Wound Wound debrided: Left lower extremity (inferior) Type of Debridement: Excisional debridement Anesthesia Used: 4% Lidocaine Solution Depth: Down to and including healthy tissue, in the subcutaneous layer Percentage of wound debrided: 100 Instrument Used: 5mm curette Tissue Removed: Slough and devitalized tissue Severity: Fat Layer Exposed Amount of bleeding with debridement: Mild Bleeding Controlled with: Pressure Patient tolerated procedure: Patient tolerated procedure well - Additional Wound Wound debrided: Left lower extremity (superior) Type of Debridement: Excisional debridement Anesthesia Used: 4% Lidocaine Solution Depth: Down to and including healthy tissue, in the subcutaneous layer Percentage of wound debrided: 100 Instrument Used: 5mm curette Tissue Removed: Slough and devitalized tissue Severity: Fat Layer Exposed Amount of bleeding with debridement: Mild Bleeding Controlled with: Pressure Patient tolerated procedure: Patient tolerated procedure well Assessment/Plan Active Problems Ulcer of left lower extremity with fat layer exposed (Chronic) PVD (peripheral vascular disease) (Chronic) Chronic venous insufficiency (Chronic) Venous stasis of lower extremity (Chronic) Assessment: Chronic left leg ulcer. Venous insufficiency. Leg edema. Delayed ulcer healing. Plan: Debridement done as documented above, procedure was well tolerated. Continue Aquacel Ag and keramax. Change daily to twice daily depending on drainage. Cleanse daily. Continue use of compression stockings, leg elevation and exercise. Increased protein intake , protein supplements, zinc and vitamin C also recommended. His questions were answered and he was advised to call with any further questions or concerns. Follow-up in 1 week. This note was generated with [employer] dictation software. It may contain incorrect words, spelling, and punctuation that were not noted in checking the note before signing. [id number]: [id number] Lakeisha subq tissue 20 sq cm/< Add On Codes: [id number] Lakeisha subq tissue add-on - Additional square centimeter debrided, please refer to clinical note.
[2020-11-25 09:05] VITALS: BP 162/92; PULSE 84; RESP 18; TEMP 36.4; BMI 31.4
--- NOTE | 2020-11-25 10:02 | PN.PCM_ITS ---
(1) Ulcer of left lower extremity with fat layer exposed Status: Chronic Code(s): L97.922 - Non-pressure chronic ulcer of unspecified part of left lower leg with fat layer exposed (2) Chronic venous insufficiency Status: Chronic (3) PVD (peripheral vascular disease) Status: Chronic Code(s): I73.9 - Peripheral vascular disease, unspecified (4) Venous stasis of lower extremity Status: Chronic Code(s): I87.8 - Other specified disorders of veins Type of Wound Date of Service: 11/25/20 Chief Complaint: ulcers to the left lower leg History of Wound: This is a 54-year-old male presents to wound healing center with a long-standing history of chronic venous insufficiency, chronic venous hypertension, lower extremity edema, lower extremity pain, and chronic left lower extremity ulcer. The patient has previously undergone endovenous laser ablation of the left and right great saphenous vein, the small saphenous vein, the left accessory saphenous vein, and an incompetent left calf chassis mechanic vein located 15 cm proximal to the left medial malleolus. He is currently wearing graduated compression stockings which are documented to be 20-30 mmHg compression and these are thigh high. He reports great compliance with use. He is also had previous arterial work-up with no intervention recommended by letter, his vascular surgeon. He denies taking nutritional supplementation. He saw dermatology and had a biopsy of the ulcer site. He also was previously treated by infectious disease for various contaminations and infections. He is not antibiotics at this time nor does he have any redness or odor coming from the wound. He denies fever, chill, nausea, vomiting, loss of appetite. Progress of Wound: Stable ulcers. No new concerns at this time. - Physical Exam Vital Signs Temp Pulse Resp BP 97.6 F L 84 18 162/92 H 11/25/20 09:05 11/25/20 09:05 11/25/20 09:05 11/25/20 09:05 General: Alert, Oriented x3, Cooperative, No apparent distress HEENT: Atraumatic, Normocephalic Oral: Moist Mucosa Neck: Supple Lungs: Normal air movement Abdomen: Non Tender, Obese Extremities: No cyanosis, Edema Skin: Ulcer/ Wound Wound Measurements and Assessment WC - Nurse 1 - General Ulcer Measurement Start: 11/04/20 09:15 Freq: Status: Active Protocol: Activity Type Activity Date Activity User E-Sign Co-Sign Detail Recorded Client Recorded Date Recorded By Document 11/25/20 09:05 DL [id number] 11/25/20 09:14 DL 11/25/20 09:05 Wound Center Nurse 1 [Ulcer Assessment] #12 Medial Superior LLE -Current Size (cm) - Length 2.5 -Current Size (cm) - Width 5.0 -Current Size (cm) - Depth 0.2 -Total Square Cm 12.50 -Photo Taken No -Exudate Amt Medium -Exudate Type Serosanguineous -Wound Margin Thickened -Granulation Amt Medium (34-66%) -Granulation Quality Red -Necrosis Amt Medium (34-66%) -Necrotic Tissue Type Adherent Slough -Structure Exposed N/A -Texture (Ara-wound Skin Appearance) Scarring -Moisture (Ara-wound Skin Appearance Dry/Scaly ) -Color (Ara-wound Skin Appearance) Hemosiderin Staining -Temperature (Ara-wound Skin No Abnormality Appearance) (Pt Warm) -Tenderness on Palpation (Ara-wound No Skin Appearance) -Ulcer Cleansing Wound Cleanser -Foul Odor after Cleansing No -Anesthetic Used 4% Lidocaine Solution #11 Medial Inferior LLE -Current Size (cm) - Length 3.6 -Current Size (cm) - Width 4.0 -Current Size (cm) - Depth 0.2 -Total Square Cm 14.40 -Photo Taken No -Exudate Amt Medium -Exudate Type Serosanguineous -Wound Margin Thickened -Granulation Amt Medium (34-66%) -Granulation Quality Red -Necrosis Amt Medium (34-66%) -Necrotic Tissue Type Adherent Slough -Structure Exposed N/A -Texture (Ara-wound Skin Appearance) Scarring -Moisture (Ara-wound Skin Appearance Dry/Scaly ) -Color (Ara-wound Skin Appearance) Hemosiderin Staining -Temperature (Ara-wound Skin No Abnormality Appearance) (Pt Warm) -Tenderness on Palpation (Ara-wound No Skin Appearance) -Ulcer Cleansing Wound Cleanser -Foul Odor after Cleansing No -Anesthetic Used 4% Lidocaine Solution #10 Left Medial Ankle -Current Size (cm) - Length 3.6 -Current Size (cm) - Width 3.6 -Current Size (cm) - Depth 0.3 -Total Square Cm 12.96 -Photo Taken No -Exudate Amt Medium -Exudate Type Serosanguineous -Wound Margin Thickened -Granulation Amt Medium (34-66%) -Granulation Quality Red -Necrosis Amt Medium (34-66%) -Necrotic Tissue Type Adherent Slough -Structure Exposed N/A -Texture (Ara-wound Skin Appearance) Scarring -Moisture (Raa-wound Skin Appearance Dry/Scaly ) -Color (Ara-wound Skin Appearance) Hemosiderin Staining -Temperature (Ara-wound Skin No Abnormality Appearance) (Pt Warm) -Tenderness on Palpation (Ara-wound No Skin Appearance) -Ulcer Cleansing Wound Cleanser -Foul Odor after Cleansing No -Anesthetic Used 4% Lidocaine Solution [Edema Assessment] -Right Calf (cm) 35 -Right Ankle (cm) 24.6 WC - Nurse 2 - General Ulcer CM Notes Start: 11/04/20 09:15 Freq: Status: Active Protocol: Activity Type Activity Date Activity User E-Sign Co-Sign Detail Recorded Client Recorded Date Recorded By Document 11/25/20 09:26 MW [id number] 11/25/20 09:33 MW 11/25/20 09:26 Wound Center Nurse 2 [Procedure/Treatment] #12 Medial Superior LLE -Time 09:27 -Correct Patient Yes -Correct Side, Site, Position Yes -Correct Procedure Yes -Procedure Performed Yes -Type of Procedure Debridement -Clinical Debridement Subcutaneous -Tissue Removed Subcutaneous -Post Debridement (cm) - Length 3.0 -Post Debridement (cm) - Width 5.0 -Post Debridement (cm) - Depth 0.2 -Total Square (Post) (cm) 15.00 -Area of Debridement (cm) - Length 3.0 -Area of Debridement (cm) - Width 5.0 -Total Square (Area) (cm) 15.00 -Tunneling No -Undermining/Tunneling No -Circular Undermining No -Wound/Ulcer Outcome Not Healed -Ulcer Cleansing Rinsed/ Irrigated with Saline -Foul Odor after Cleansing No -Bioengineered Tissue No -Bleeding Controlled with Pressure -Offloading No -Treatment Response Procedure Tolerated Well -Debridement - Subq, 1st 20sq cm Yes #11 Medial Inferior LLE -Time 09:27 -Correct Patient Yes -Correct Side, Site, Position Yes -Correct Procedure Yes -Procedure Performed Yes -Type of Procedure Debridement -Clinical Debridement Subcutaneous -Tissue Removed Subcutaneous -Post Debridement (cm) - Length 3.5 -Post Debridement (cm) - Width 4.0 -Post Debridement (cm) - Depth 0.1 -Total Square (Post) (cm) 14.00 -Area of Debridement (cm) - Length 3.5 -Area of Debridement (cm) - Width 4.0 -Total Square (Area) (cm) 14.00 -Tunneling No -Undermining/Tunneling No -Circular Undermining No -Wound/Ulcer Outcome Not Healed -Ulcer Cleansing Rinsed/ Irrigated with Saline -Foul Odor after Cleansing No -Bioengineered Tissue No -Bleeding Controlled with Pressure -Offloading No -Treatment Response Procedure Tolerated Well -Debridement - Subq, 1st 20sq cm No #10 Left Medial Ankle -Time 09:28 -Correct Patient Yes -Correct Side, Site, Position Yes -Correct Procedure Yes -Procedure Performed Yes -Type of Procedure Debridement -Clinical Debridement Subcutaneous -Tissue Removed Subcutaneous -Post Debridement (cm) - Length 3.5 -Post Debridement (cm) - Width 3.1 -Post Debridement (cm) - Depth 0.2 -Total Square (Post) (cm) 10.85 -Area of Debridement (cm) - Length 3.5 -Area of Debridement (cm) - Width 3.1 -Total Square (Area) (cm) 10.85 -Tunneling No -Undermining/Tunneling No -Circular Undermining No -Wound/Ulcer Outcome Not Healed -Ulcer Cleansing Rinsed/ Irrigated with Saline -Foul Odor after Cleansing No -Bioengineered Tissue No -Bleeding Controlled with Pressure -Offloading No -Treatment Response Procedure Tolerated Well -Debridement - Subq, 1st 20sq cm No [See Physician Procedure note for Specifics] Pain Scale: 0-10 Numeric [Pain] -Is Patient Pain Free? Yes WC - Nurse 3 - General Ulcer D/C NN Start: 11/04/20 09:15 Freq: Status: Active Protocol: Activity Type Activity Date Activity User E-Sign Co-Sign Detail Recorded Client Recorded Date Recorded By Document 11/25/20 09:47 DL [id number] 11/25/20 09:52 DL 11/25/20 09:47 Wound Care Nurse 3 [Wound Dressing] #12 Medial Superior LLE -Ulcer Cleansing Wound Cleanser -Foul Odor after Cleansing No -Primary Dressing Applied Aquacel AG 4x4 -Other Dressing KarraMax -Primary Dressing Covered/Secured Dry Gauze, with Secured with Tape -Aquacel AG 4x4 1 #11 Medial Inferior LLE -Other Dressing aquacel ag/ kerramax -Primary Dressing Covered/Secured Dry Gauze, with Secured with Tape #10 Left Medial Ankle -Ulcer Cleansing Wound Cleanser -Foul Odor after Cleansing No -Other Dressing aquCEL AG/ KERRAMAX -Primary Dressing Covered/Secured Dry Gauze, with Secured with Tape [Compression Applied] Left -Stockings Yes [Post Procedure Tolerated] -Treatment Response Procedure Tolerated Well Pain Scale: 0-10 Numeric [Pain] -Is Patient Pain Free? Yes WC - Visit Discharge [Visit Discharge Information] -Discharge Condition Stable -Ambulatory Status Ambulatory -Transportation Private Auto Musculoskeletal: No Muscle Wasting Neurological: Cranial nerves II-XII grossly intact Psych/Mental Status: Normal Affect Debridement Note Post-Debridement Measurements/Treatment WC - Nurse 2 - General Ulcer CM Notes Start: 11/04/20 09:15 Freq: Status: Active Protocol: Activity Type Activity Date Activity User E-Sign Co-Sign Detail Recorded Client Recorded Date Recorded By Document 11/04/20 09:35 MW [id number] 11/04/20 09:41 MW Document 11/11/20 10:17 MW [id number] 11/11/20 10:26 MW Document 11/18/20 09:27 MW [id number] 11/18/20 09:37 MW Document 11/25/20 09:26 MW [id number] 11/25/20 09:33 MW 11/04/20 11/11/20 11/18/20 09:35 10:17 09:27 Wound Center Nurse 2 #14 LEFT DORSAL FOOT -Time 09:35 10:18 09:27 -Correct Patient Yes Yes Yes -Correct Side, Site, Position Yes Yes Yes -Correct Procedure Yes Yes Yes -Procedure Performed No Yes No -Type of Procedure Debridement -Clinical Debridement Subcutaneous -Tissue Removed Subcutaneous -Post Debridement (cm) - Length 0 0.4 0 -Post Debridement (cm) - Width 0 0.3 0 -Post Debridement (cm) - Depth 0 0.1 0 -Total Square (Post) (cm) 0 0.12 0 -Area of Debridement (cm) - Length 0.4 -Area of Debridement (cm) - Width 0.3 -Total Square (Area) (cm) 0.12 -Tunneling No No -Undermining/Tunneling No No -Circular Undermining No No -Wound/Ulcer Outcome Not Healed -Ulcer Cleansing Rinsed/ Irrigated with Saline -Foul Odor after Cleansing No -Bioengineered Tissue No -Bleeding Controlled with Pressure -Offloading No -Treatment Response Procedure Tolerated Well -Debridement - Subq, 1st 20sq cm Yes -Debridement, SubQ, ea addt'l 20sq cm 1 or part thereof #12 Medial Superior LLE -Time 09:35 10: 09:28 -Correct Patient Yes Yes Yes -Correct Side, Site, Position Yes Yes Yes -Correct Procedure Yes Yes Yes -Procedure Performed Yes Yes Yes -Type of Procedure Debridement Debridement Debridement -Clinical Debridement Subcutaneous Subcutaneous Subcutaneous -Tissue Removed Subcutaneous Subcutaneous Subcutaneous -Post Debridement (cm) - Length 2.8 3.0 3.0 -Post Debridement (cm) - Width 5.0 4.6 4.5 -Post Debridement (cm) - Depth 0.1 0.1 0.2 -Total Square (Post) (cm) 14.00 13.80 13.50 -Area of Debridement (cm) - Length 2.8 3.0 3.0 -Area of Debridement (cm) - Width 5.0 4.6 4.5 -Total Square (Area) (cm) 14.00 13.80 13.50 -Tunneling No No No -Undermining/Tunneling No No No -Circular Undermining No No No -Wound/Ulcer Outcome Not Healed Not Healed Not Healed -Ulcer Cleansing Rinsed/ Rinsed/ Rinsed/ Irrigated with Irrigated with Irrigated with Saline Saline Saline -Foul Odor after Cleansing No No No -Bioengineered Tissue No No No -Bleeding Controlled with Pressure Pressure Pressure -Offloading No No No -Treatment Response Procedure Procedure Procedure Tolerated Well Tolerated Well Tolerated Well -Debridement - Subq, 1st 20sq cm Yes No Yes -Debridement, SubQ, ea addt'l 20sq cm 1 1 or part thereof #11 Medial Inferior LLE -Time 09:35 10:19 09:28 -Correct Patient Yes Yes Yes -Correct Side, Site, Position Yes Yes Yes -Correct Procedure Yes Yes Yes -Procedure Performed Yes Yes Yes -Type of Procedure Debridement Debridement Debridement -Clinical Debridement Subcutaneous Subcutaneous Subcutaneous -Tissue Removed Subcutaneous Subcutaneous Subcutaneous -Post Debridement (cm) - Length 3.0 3.0 3.2 -Post Debridement (cm) - Width 4.5 4.5 4.0 -Post Debridement (cm) - Depth 0.1 0.1 0.1 -Total Square (Post) (cm) 13.50 13.50 12.80 -Area of Debridement (cm) - Length 3.0 3.0 3.2 -Area of Debridement (cm) - Width 4.5 4.5 4.0 -Total Square (Area) (cm) 13.50 13.50 12.80 -Tunneling No No No -Undermining/Tunneling No No No -Circular Undermining No No No -Wound/Ulcer Outcome Not Healed Not Healed Not Healed -Ulcer Cleansing Rinsed/ Rinsed/ Rinsed/ Irrigated with Irrigated with Irrigated with Saline Saline Saline -Foul Odor after Cleansing No No No -Bioengineered Tissue No No No -Bleeding Controlled with Pressure Pressure Pressure -Offloading No No No -Treatment Response Procedure Procedure Tolerated Well Tolerated Well -Debridement - Subq, 1st 20sq cm No No No #10 Left Medial Ankle -Time 09:36 10:19 09:28 -Correct Patient Yes Yes Yes -Correct Side, Site, Position Yes Yes Yes -Correct Procedure Yes Yes Yes -Procedure Performed Yes Yes Yes -Type of Procedure Debridement Debridement Debridement -Clinical Debridement Subcutaneous Subcutaneous Subcutaneous -Tissue Removed Subcutaneous Subcutaneous Subcutaneous -Post Debridement (cm) - Length 3.2 3.6 3.0 -Post Debridement (cm) - Width 3.2 3.4 3.2 -Post Debridement (cm) - Depth 0.2 0.2 0.2 -Total Square (Post) (cm) 10.24 12.24 9.60 -Area of Debridement (cm) - Length 3.2 3.6 3.0 -Area of Debridement (cm) - Width 3.2 3.4 3.2 -Total Square (Area) (cm) 10.24 12.24 9.60 -Tunneling No No No -Undermining/Tunneling No No No -Circular Undermining No No No -Wound/Ulcer Outcome Not Healed Not Healed Not Healed -Ulcer Cleansing Rinsed/ Rinsed/ Rinsed/ Irrigated with Irrigated with Irrigated with Saline Saline Saline -Foul Odor after Cleansing No No No -Bioengineered Tissue No No No -Bleeding Controlled with Pressure Pressure Pressure -Offloading No No No -Treatment Response Procedure Procedure Procedure Tolerated Well Tolerated Well Tolerated Well -Debridement - Subq, 1st 20sq cm No No No Pain Scale: 0-10 Numeric Is Patient Pain Free? Yes Yes Yes 11/25/20 09:26 Wound Center Nurse 2 #14 LEFT DORSAL FOOT -Time -Correct Patient -Correct Side, Site, Position -Correct Procedure -Procedure Performed -Type of Procedure -Clinical Debridement -Tissue Removed -Post Debridement (cm) - Length -Post Debridement (cm) - Width -Post Debridement (cm) - Depth -Total Square (Post) (cm) -Area of Debridement (cm) - Length -Area of Debridement (cm) - Width -Total Square (Area) (cm) -Tunneling -Undermining/Tunneling -Circular Undermining -Wound/Ulcer Outcome -Ulcer Cleansing -Foul Odor after Cleansing -Bioengineered Tissue -Bleeding Controlled with -Offloading -Treatment Response -Debridement - Subq, 1st 20sq cm -Debridement, SubQ, ea addt'l 20sq cm or part thereof #12 Medial Superior LLE -Time 09:27 -Correct Patient Yes -Correct Side, Site, Position Yes -Correct Procedure Yes -Procedure Performed Yes -Type of Procedure Debridement -Clinical Debridement Subcutaneous -Tissue Removed Subcutaneous -Post Debridement (cm) - Length 3.0 -Post Debridement (cm) - Width 5.0 -Post Debridement (cm) - Depth 0.2 -Total Square (Post) (cm) 15.00 -Area of Debridement (cm) - Length 3.0 -Area of Debridement (cm) - Width 5.0 -Total Square (Area) (cm) 15.00 -Tunneling No -Undermining/Tunneling No -Circular Undermining No -Wound/Ulcer Outcome Not Healed -Ulcer Cleansing Rinsed/ Irrigated with Saline -Foul Odor after Cleansing No -Bioengineered Tissue No -Bleeding Controlled with Pressure -Offloading No -Treatment Response Procedure Tolerated Well -Debridement - Subq, 1st 20sq cm Yes -Debridement, SubQ, ea addt'l 20sq cm or part thereof #11 Medial Inferior LLE -Time 09:27 -Correct Patient Yes -Correct Side, Site, Position Yes -Correct Procedure Yes -Procedure Performed Yes -Type of Procedure Debridement -Clinical Debridement Subcutaneous -Tissue Removed Subcutaneous -Post Debridement (cm) - Length 3.5 -Post Debridement (cm) - Width 4.0 -Post Debridement (cm) - Depth 0.1 -Total Square (Post) (cm) 14.00 -Area of Debridement (cm) - Length 3.5 -Area of Debridement (cm) - Width 4.0 -Total Square (Area) (cm) 14.00 -Tunneling No -Undermining/Tunneling No -Circular Undermining No -Wound/Ulcer Outcome Not Healed -Ulcer Cleansing Rinsed/ Irrigated with Saline -Foul Odor after Cleansing No -Bioengineered Tissue No -Bleeding Controlled with Pressure -Offloading No -Treatment Response Procedure Tolerated Well -Debridement - Subq, 1st 20sq cm No #10 Left Medial Ankle -Time 09:28 -Correct Patient Yes -Correct Side, Site, Position Yes -Correct Procedure Yes -Procedure Performed Yes -Type of Procedure Debridement -Clinical Debridement Subcutaneous -Tissue Removed Subcutaneous -Post Debridement (cm) - Length 3.5 -Post Debridement (cm) - Width 3.1 -Post Debridement (cm) - Depth 0.2 -Total Square (Post) (cm) 10.85 -Area of Debridement (cm) - Length 3.5 -Area of Debridement (cm) - Width 3.1 -Total Square (Area) (cm) 10.85 -Tunneling No -Undermining/Tunneling No -Circular Undermining No -Wound/Ulcer Outcome Not Healed -Ulcer Cleansing Rinsed/ Irrigated with Saline -Foul Odor after Cleansing No -Bioengineered Tissue No -Bleeding Controlled with Pressure -Offloading No -Treatment Response Procedure Tolerated Well -Debridement - Subq, 1st 20sq cm No Pain Scale: 0-10 Numeric Is Patient Pain Free? Yes WC - Nurse 3 - General Ulcer D/C NN Start: 11/04/20 09:15 Freq: Status: Active Protocol: Activity Type Activity Date Activity User E-Sign Co-Sign Detail Recorded Client Recorded Date Recorded By Document 11/11/20 10:34 MW [id number] 11/11/20 10:36 MW Document 11/18/20 09:49 DL [id number] 11/18/20 09:56 DL Document 11/25/20 09:47 DL [id number] 11/25/20 09:52 DL 11/11/20 11/18/20 11/25/20 10:34 09:49 09:47 Wound Care Nurse 3 #14 LEFT DORSAL FOOT -Ulcer Cleansing Rinsed/ Irrigated with Saline -Foul Odor after Cleansing No -Negative Pressure Wound Therapy N/A -Other Dressing aquacel ag -Primary Dressing Covered/Secured with Dry Gauze & Roll Gauze, Secured with Tape -Other Covering kerramax care, abd pad #12 Medial Superior LLE -Ulcer Cleansing Rinsed/ Wound Cleanser Wound Cleanser Irrigated with Saline -Foul Odor after Cleansing No No No -Negative Pressure Wound Therapy N/A -Primary Dressing Applied Aquacel AG 4x4 Aquacel AG 4x4 -Other Dressing aquacel ag KarraMax -Primary Dressing Covered/Secured with Dry Gauze & Dry Gauze, Dry Gauze, Roll Gauze, Secured with Secured with Secured with Tape Tape Tape -Other Covering kerr[place] care, abd pad -Aquacel AG 4x4 1 1 #11 Medial Inferior LLE -Ulcer Cleansing Rinsed/ Wound Cleanser Irrigated with Saline -Foul Odor after Cleansing No No -Negative Pressure Wound Therapy N/A -Other Dressing aquacel ag Aquacel ag/ aquacel ag/ erraMax kerramax -Primary Dressing Covered/Secured with Dry Gauze & Dry Gauze, Dry Gauze, Roll Gauze, Secured with Secured with Secured with Tape Tape Tape -Other Covering kerramax care, abd pad #10 Left Medial Ankle -Ulcer Cleansing Rinsed/ Wound Cleanser Wound Cleanser Irrigated with Saline -Foul Odor after Cleansing No No No -Negative Pressure Wound Therapy N/A -Other Dressing aquqcel ag aquacel ag/ aquCEL AG/ KerraMax KERRAMAX -Primary Dressing Covered/Secured with Dry Gauze & Dry Gauze, Dry Gauze, Roll Gauze, Secured with Secured with Secured with Tape Tape Tape -Other Covering kerramax care, abd pad Left -Stockings Yes -Other stockings Treatment Response Procedure Procedure Procedure Tolerated Well Tolerated Well Tolerated Well Pain Scale: 0-10 Numeric Is Patient Pain Free? Yes Yes Teaching: Wound Center Dressing Your Wound -Person Taught Patient -Teaching Method Discussion -Response to teaching Verbalize understanding WC - Visit Discharge Discharge Condition Stable Stable Stable Ambulatory Status Ambulatory Ambulatory Ambulatory Transportation Private Auto Private Auto Private Auto Accompanied by self Medication Reconcilliation completed & No provided to patient/care provider Clinical Summary of Care Provided Yes Wound debrided: Left Ankle ( medial ) Type of Debridement: Excisional debridement Anesthesia Used: 4% Lidocaine Solution Depth: Down to and including healthy tissue, in the subcutaneous layer Percentage of wound debrided: 100 Instrument Used: 5mm curette Tissue Removed: Slough and devitalized tissue Severity: Fat Layer Exposed Amount of bleeding with debridement: Mild Bleeding Controlled with: Pressure Patient tolerated procedure well - Additional Wound Wound debrided: Left lower extremity ( Inferior ) Type of Debridement: Excisional debridement Anesthesia Used: 4% Lidocaine Solution Depth: Down to and including healthy tissue, in the subcutaneous layer Percentage of wound debrided: 100 Instrument Used: 5mm curette Tissue Removed: Slough and devitalized tissue Severity: Fat Layer Exposed Amount of bleeding with debridement: Mild Bleeding Controlled with: Pressure Patient tolerated procedure: Patient tolerated procedure well - Additional Wound Wound debrided: Left lower extremity ( Superior ) Type of Debridement: Excisional debridement Anesthesia Used: 4% Lidocaine Solution Depth: Down to and including healthy tissue, in the subcutaneous layer Percentage of wound debrided: 100 Instrument Used: 5mm curette Tissue Removed: Slough and devitalized tissue Severity: Fat Layer Exposed Amount of bleeding with debridement: Mild Bleeding Controlled with: Pressure Patient tolerated procedure: Patient tolerated procedure well Assessment/Plan Active Problems Ulcer of left lower extremity with fat layer exposed (Chronic) PVD (peripheral vascular disease) (Chronic) Chronic venous insufficiency (Chronic) Venous stasis of lower extremity (Chronic) Assessment: Chronic left leg ulcer. Venous insufficiency. Leg edema. Delayed ulcer healing. Plan: Debridement done as documented above, procedure was well tolerated. Continue Aquacel Ag and keramax. Change daily to twice daily depending on drainage. Cleanse daily. Continue use of compression stockings, leg elevation and exercise. Increased protein intake , protein supplements, zinc and vitamin C also recommended. His questions were answered and he was advised to call with any further questions or concerns. Follow-up in 2 weeks. This note was generated with [employer] software. It may contain incorrect words, spelling, and punctuation that were not noted in checking the note before signing. [id number]: [id number] Lakeisha subq tissue 20 sq cm/< Add On Codes: [id number] Lakeisha subq tissue add-on
== END 2020-11-28 23:59 ==
LOC: WC 09:00
PROVIDERS: Visit Provider Internal Medicine
DX: I73.9 Peripheral vascular disease, unspecified (principal); R60.0 Localized edema; I87.2 Venous insufficiency (chronic) (peripheral); L97.322 Non-pressure chronic ulcer of left ankle with fat layer exposed; L97.822 Non-pressure chronic ulcer of other part of left lower leg with fat layer exposed; L97.522 Non-pressure chronic ulcer of other part of left foot with fat layer exposed
CPT/HCPCS: 11042; 11045

== ENCOUNTER 2020-12-23 09:00 | Outpatient (RCR) | payer BC, SELFPAY ==
[2020-11-29 00:21] VITALS: BP 162/92; PULSE 84; RESP 18; TEMP 36.4
[2020-12-09 09:02] VITALS: BP 145/89; PULSE 89; RESP 16; TEMP 35.8; BMI 31.4
--- NOTE | 2020-12-09 10:15 | PCM.WC.PN ---
(1) Ulcer of left lower extremity with fat layer exposed Status: Chronic Code(s): L97.922 - Non-pressure chronic ulcer of unspecified part of left lower leg with fat layer exposed (2) Chronic venous insufficiency Status: Chronic (3) Delayed wound healing Status: Chronic Code(s): T14.8XXD - Other injury of unspecified body region, subsequent encounter (4) Peripheral vascular occlusive disease Status: Chronic Code(s): I73.9 - Peripheral vascular disease, unspecified Type of Wound Date of Service: 12/09/20 Chief Complaint: ulcers to the left lower leg History of Wound: This is a 54-year-old male presents to wound healing center with a long-standing history of chronic venous insufficiency, chronic venous hypertension, lower extremity edema, lower extremity pain, and chronic left lower extremity ulcer. The patient has previously undergone endovenous laser ablation of the left and right great saphenous vein, the small saphenous vein, the left accessory saphenous vein, and an incompetent left calf photography coordinator vein located 15 cm proximal to the left medial malleolus. He is currently wearing graduated compression stockings which are documented to be 20-30 mmHg compression and these are thigh high. He reports great compliance with use. He is also had previous arterial work-up with no intervention recommended by letter, his vascular surgeon. He denies taking nutritional supplementation. He saw dermatology and had a biopsy of the ulcer site. He also was previously treated by infectious disease for various contaminations and infections. He is not antibiotics at this time nor does he have any redness or odor coming from the wound. He denies fever, chill, nausea, vomiting, loss of appetite. Progress of Wound: Stable ulcers. No new concerns at this time. - Physical Exam Vital Signs Temp Pulse Resp BP 96.5 F L 89 16 145/89 H 12/09/20 09:02 12/09/20 09:02 12/09/20 09:02 12/09/20 09:02 General: Alert, Oriented x3, Cooperative, No apparent distress HEENT: Atraumatic, Normocephalic Oral: Moist Mucosa Neck: Supple Lungs: Normal air movement Extremities: No cyanosis, Edema Skin: Ulcer/ Wound Wound Measurements and Assessment WC - Nurse 1 - General Ulcer Measurement Start: 12/09/20 09:02 Freq: Status: Active Protocol: Activity Type Activity Date Activity User E-Sign Co-Sign Detail Recorded Client Recorded Date Recorded By Document 12/09/20 09:02 TIFFANY [id number] 12/09/20 09:07 TIFFANY 12/09/20 09:02 Wound Center Nurse 1 [Ulcer Assessment] #12 Medial Superior LLE -Current Size (cm) - Length 4.8 -Current Size (cm) - Width 2.5 -Current Size (cm) - Depth 0.1 -Total Square Cm 12.00 -Photo Taken No -Exudate Amt Medium -Exudate Type Serosanguineous -Wound Margin Distinct, Outline Attached -Granulation Amt Medium (34-66%) -Granulation Quality Red -Necrosis Amt Medium (34-66%) -Necrotic Tissue Type Adherent Slough -Structure Exposed N/A -Texture (Ara-wound Skin Appearance) Scarring -Moisture (Ara-wound Skin Appearance Dry/Scaly ) -Color (Ara-wound Skin Appearance) Hemosiderin Staining -Temperature (Ara-wound Skin No Abnormality Appearance) (Pt Warm) -Tenderness on Palpation (Ara-wound No Skin Appearance) -Ulcer Cleansing Rinsed/ Irrigated with Saline -Foul Odor after Cleansing No -Anesthetic Used 4% Lidocaine Solution #11 Medial Inferior LLE -Current Size (cm) - Length 4.5 -Current Size (cm) - Width 4.1 -Current Size (cm) - Depth 0.1 -Total Square Cm 18.45 -Photo Taken No -Exudate Amt Medium -Exudate Type Serosanguineous -Wound Margin Distinct, Outline Attached -Granulation Amt Medium (34-66%) -Granulation Quality Red -Necrosis Amt Medium (34-66%) -Necrotic Tissue Type Adherent Slough -Texture (Ara-wound Skin Appearance) Scarring -Moisture (Ara-wound Skin Appearance Dry/Scaly ) -Color (Ara-wound Skin Appearance) Hemosiderin Staining -Temperature (Ara-wound Skin No Abnormality Appearance) (Pt Warm) -Tenderness on Palpation (Ara-wound No Skin Appearance) -Ulcer Cleansing Wound Cleanser -Foul Odor after Cleansing No -Anesthetic Used 4% Lidocaine Solution #10 Left Medial Ankle -Current Size (cm) - Length 3.5 -Current Size (cm) - Width 3 -Current Size (cm) - Depth 0.2 -Total Square Cm 10.5 -Photo Taken No -Exudate Amt Medium -Exudate Type Serosanguineous -Wound Margin Distinct, Outline Attached -Granulation Amt Medium (34-66%) -Granulation Quality Red -Necrosis Amt Medium (34-66%) -Necrotic Tissue Type Adherent Slough -Structure Exposed N/A -Texture (Ara-wound Skin Appearance) Scarring -Moisture (Ara-wound Skin Appearance Dry/Scaly ) -Color (Ara-wound Skin Appearance) Hemosiderin Staining -Temperature (Ara-wound Skin No Abnormality Appearance) (Pt Warm) -Tenderness on Palpation (Ara-wound No Skin Appearance) -Ulcer Cleansing Wound Cleanser -Foul Odor after Cleansing No -Anesthetic Used 4% Lidocaine Solution [Edema Assessment] -Left Calf (cm) 36 -Left Ankle (cm) 24.5 WC - Nurse 2 - General Ulcer CM Notes Start: 12/09/20 09:02 Freq: Status: Active Protocol: Activity Type Activity Date Activity User E-Sign Co-Sign Detail Recorded Client Recorded Date Recorded By Document 12/09/20 09:17 MW [id number] 12/09/20 09:25 MW 12/09/20 09:17 Wound Center Nurse 2 [Procedure/Treatment] #12 Medial Superior LLE -Time 09:20 -Correct Patient Yes -Correct Side, Site, Position Yes -Correct Procedure Yes -Procedure Performed Yes -Type of Procedure Debridement -Clinical Debridement Subcutaneous -Tissue Removed Subcutaneous -Post Debridement (cm) - Length 2.8 -Post Debridement (cm) - Width 5.0 -Post Debridement (cm) - Depth 0.1 -Total Square (Post) (cm) 14.00 -Area of Debridement (cm) - Length 2.8 -Area of Debridement (cm) - Width 5.0 -Total Square (Area) (cm) 14.00 -Tunneling No -Undermining/Tunneling No -Circular Undermining No -Wound/Ulcer Outcome Not Healed -Ulcer Cleansing Rinsed/ Irrigated with Saline -Foul Odor after Cleansing No -Bioengineered Tissue No -Bleeding Controlled with Pressure -Offloading No -Treatment Response Procedure Tolerated Well -Debridement - Subq, 1st 20sq cm Yes #11 Medial Inferior LLE -Time 09:20 -Correct Patient Yes -Correct Side, Site, Position Yes -Correct Procedure Yes -Procedure Performed Yes -Type of Procedure Debridement -Clinical Debridement Subcutaneous -Tissue Removed Subcutaneous -Post Debridement (cm) - Length 4.0 -Post Debridement (cm) - Width 4.0 -Post Debridement (cm) - Depth 0.1 -Total Square (Post) (cm) 16.00 -Area of Debridement (cm) - Length 4.0 -Area of Debridement (cm) - Width 4.0 -Total Square (Area) (cm) 16.00 -Tunneling No -Undermining/Tunneling No -Circular Undermining No -Wound/Ulcer Outcome Not Healed -Ulcer Cleansing Rinsed/ Irrigated with Saline -Foul Odor after Cleansing No -Bioengineered Tissue No -Bleeding Controlled with Pressure -Offloading No -Treatment Response Procedure Tolerated Well -Debridement - Subq, 1st 20sq cm No #10 Left Medial Ankle -Time 09:20 -Correct Patient Yes -Correct Side, Site, Position Yes -Correct Procedure Yes -Procedure Performed Yes -Type of Procedure Debridement -Clinical Debridement Subcutaneous -Tissue Removed Subcutaneous -Post Debridement (cm) - Length 3.2 -Post Debridement (cm) - Width 3.0 -Post Debridement (cm) - Depth 0.2 -Total Square (Post) (cm) 9.60 -Area of Debridement (cm) - Length 3.2 -Area of Debridement (cm) - Width 3.0 -Total Square (Area) (cm) 9.60 -Tunneling No -Undermining/Tunneling No -Circular Undermining No -Wound/Ulcer Outcome Not Healed -Ulcer Cleansing Rinsed/ Irrigated with Saline -Foul Odor after Cleansing No -Bioengineered Tissue No -Bleeding Controlled with Pressure -Offloading No -Treatment Response Procedure Tolerated Well -Debridement - Subq, 1st 20sq cm No [See Physician Procedure note for Specifics] Pain Scale: 0-10 Numeric [Pain] -Is Patient Pain Free? Yes WC - Nurse 3 - General Ulcer D/C NN Start: 12/09/20 09:02 Freq: Status: Active Protocol: Activity Type Activity Date Activity User E-Sign Co-Sign Detail Recorded Client Recorded Date Recorded By Document 12/09/20 09:40 MS [id number] 12/09/20 09:43 MS 12/09/20 09:40 Wound Care Nurse 3 [Wound Dressing] #12 Medial Superior LLE -Other Dressing AQACEL AG , KERBISHOPX,ABD #11 Medial Inferior LLE -Ulcer Cleansing Rinsed/ Irrigated with Saline -Foul Odor after Cleansing No -Other Dressing AQACEL AG, KERAMAX #10 Left Medial Ankle -Ulcer Cleansing Rinsed/ Irrigated with Saline -Other Dressing AQUACEL AG, KERAMAX [Post Procedure Tolerated] -Treatment Response Procedure Tolerated Well Pain Scale: 0-10 Numeric [Pain] -Is Patient Pain Free? Yes WC - Visit Discharge [Visit Discharge Information] -Discharge Condition Stable -Ambulatory Status Ambulatory Musculoskeletal: No Muscle Wasting Neurological: Cranial nerves II-XII grossly intact Psych/Mental Status: Normal Affect Debridement Note Post-Debridement Measurements/Treatment WC - Nurse 2 - General Ulcer CM Notes Start: 12/09/20 09:02 Freq: Status: Active Protocol: Activity Type Activity Date Activity User E-Sign Co-Sign Detail Recorded Client Recorded Date Recorded By Document 12/09/20 09:17 MW [id number] 12/09/20 09:25 MW 12/09/20 09:17 Wound Center Nurse 2 #12 Medial Superior LLE -Time 09:20 -Correct Patient Yes -Correct Side, Site, Position Yes -Correct Procedure Yes -Procedure Performed Yes -Type of Procedure Debridement -Clinical Debridement Subcutaneous -Tissue Removed Subcutaneous -Post Debridement (cm) - Length 2.8 -Post Debridement (cm) - Width 5.0 -Post Debridement (cm) - Depth 0.1 -Total Square (Post) (cm) 14.00 -Area of Debridement (cm) - Length 2.8 -Area of Debridement (cm) - Width 5.0 -Total Square (Area) (cm) 14.00 -Tunneling No -Undermining/Tunneling No -Circular Undermining No -Wound/Ulcer Outcome Not Healed -Ulcer Cleansing Rinsed/ Irrigated with Saline -Foul Odor after Cleansing No -Bioengineered Tissue No -Bleeding Controlled with Pressure -Offloading No -Treatment Response Procedure Tolerated Well -Debridement - Subq, 1st 20sq cm Yes #11 Medial Inferior LLE -Time 09:20 -Correct Patient Yes -Correct Side, Site, Position Yes -Correct Procedure Yes -Procedure Performed Yes -Type of Procedure Debridement -Clinical Debridement Subcutaneous -Tissue Removed Subcutaneous -Post Debridement (cm) - Length 4.0 -Post Debridement (cm) - Width 4.0 -Post Debridement (cm) - Depth 0.1 -Total Square (Post) (cm) 16.00 -Area of Debridement (cm) - Length 4.0 -Area of Debridement (cm) - Width 4.0 -Total Square (Area) (cm) 16.00 -Tunneling No -Undermining/Tunneling No -Circular Undermining No -Wound/Ulcer Outcome Not Healed -Ulcer Cleansing Rinsed/ Irrigated with Saline -Foul Odor after Cleansing No -Bioengineered Tissue No -Bleeding Controlled with Pressure -Offloading No -Treatment Response Procedure Tolerated Well -Debridement - Subq, 1st 20sq cm No #10 Left Medial Ankle -Time 09:20 -Correct Patient Yes -Correct Side, Site, Position Yes -Correct Procedure Yes -Procedure Performed Yes -Type of Procedure Debridement -Clinical Debridement Subcutaneous -Tissue Removed Subcutaneous -Post Debridement (cm) - Length 3.2 -Post Debridement (cm) - Width 3.0 -Post Debridement (cm) - Depth 0.2 -Total Square (Post) (cm) 9.60 -Area of Debridement (cm) - Length 3.2 -Area of Debridement (cm) - Width 3.0 -Total Square (Area) (cm) 9.60 -Tunneling No -Undermining/Tunneling No -Circular Undermining No -Wound/Ulcer Outcome Not Healed -Ulcer Cleansing Rinsed/ Irrigated with Saline -Foul Odor after Cleansing No -Bioengineered Tissue No -Bleeding Controlled with Pressure -Offloading No -Treatment Response Procedure Tolerated Well -Debridement - Subq, 1st 20sq cm No Pain Scale: 0-10 Numeric Is Patient Pain Free? Yes - Nurse 3 - General Ulcer D/C NN Start: 12/09/20 09:02 Freq: Status: Active Protocol: Activity Type Activity Date Activity User E-Sign Co-Sign Detail Recorded Client Recorded Date Recorded By Document 12/09/20 09:40 MS [id number] 12/09/20 09:43 MS 12/09/20 09:40 Wound Care Nurse 3 #12 Medial Superior LLE -Other Dressing AQACEL AG , KERAMAX,ABD #11 Medial Inferior LLE -Ulcer Cleansing Rinsed/ Irrigated with Saline -Foul Odor after Cleansing No -Other Dressing AQACEL AG, KERAMAX #10 Left Medial Ankle -Ulcer Cleansing Rinsed/ Irrigated with Saline -Other Dressing AQUACEL AG, KERAMAX Treatment Response Procedure Tolerated Well Pain Scale: 0-10 Numeric Is Patient Pain Free? Yes - Visit Discharge Discharge Condition Stable Ambulatory Status Ambulatory Wound debrided: Left medial ankle Type of Debridement: Excisional debridement Anesthesia Used: 4% Lidocaine Solution Depth: Down to and including healthy tissue, in the subcutaneous layer Percentage of wound debrided: 100 Instrument Used: 5mm curette Tissue Removed: Slough and devitalized tissue Severity: Fat Layer Exposed Amount of bleeding with debridement: Mild Bleeding Controlled with: Pressure Patient tolerated procedure well - Additional Wound Wound debrided: Left lower extremity (inferior) Type of Debridement: Excisional debridement Anesthesia Used: 4% Lidocaine Solution Depth: Down to and including healthy tissue, in the subcutaneous layer Percentage of wound debrided: 100 Instrument Used: 5mm curette Tissue Removed: Slough and devitalized tissue Severity: Fat Layer Exposed Amount of bleeding with debridement: Mild Bleeding Controlled with: Pressure Patient tolerated procedure: Patient tolerated procedure well - Additional Wound Wound debrided: Left lower extremity (superior) Type of Debridement: Excisional debridement Anesthesia Used: 4% Lidocaine Solution Depth: Down to and including healthy tissue, in the subcutaneous layer Percentage of wound debrided: 100 Instrument Used: 5mm curette Tissue Removed: Slough and devitalized tissue Severity: Fat Layer Exposed Amount of bleeding with debridement: Mild Bleeding Controlled with: Pressure Patient tolerated procedure: Patient tolerated procedure well Assessment/Plan Assessment: Chronic left leg ulcer. Venous insufficiency. Leg edema. Delayed ulcer healing. Plan: Debridement done as documented above, procedure was well tolerated. Continue Aquacel Ag and keramax. Change daily to twice daily depending on drainage. Cleanse daily. Continue use of compression stockings, leg elevation and exercise. Increased protein intake , protein supplements, zinc and vitamin C also recommended. His questions were answered and he was advised to call with any further questions or concerns. Follow-up in 2 weeks per patient preference. This note was generated with [employer] software. It may contain incorrect words, spelling, and punctuation that were not noted in checking the note before signing. [id number]: [id number] Lakeisha subq tissue 20 sq cm/< Add On Codes: [id number] Lakeisha subq tissue add-on
[2020-12-23 09:05] VITALS: BP 142/84; PULSE 79; TEMP 36.3; BMI 31.4
--- NOTE | 2020-12-23 09:45 | PN.PCM_ITS ---
(1) Ulcer of left lower extremity with fat layer exposed Status: Chronic Code(s): L97.922 - Non-pressure chronic ulcer of unspecified part of left lower leg with fat layer exposed (2) Chronic venous insufficiency Status: Chronic (3) Delayed wound healing Status: Chronic Code(s): T14.8XXD - Other injury of unspecified body region, subsequent encounter (4) Peripheral vascular occlusive disease Status: Chronic Code(s): I73.9 - Peripheral vascular disease, unspecified Type of Wound Date of Service: 12/23/20 Chief Complaint: ulcers to the left lower leg History of Wound: This is a 54-year-old male presents to wound healing center with a long-standing history of chronic venous insufficiency, chronic venous hypertension, lower extremity edema, lower extremity pain, and chronic left lower extremity ulcer. The patient has previously undergone endovenous laser ablation of the left and right great saphenous vein, the small saphenous vein, the left accessory saphenous vein, and an incompetent left calf mattress filling machine tender vein located 15 cm proximal to the left medial malleolus. He is currently wearing graduated compression stockings which are documented to be 20-30 mmHg compression and these are thigh high. He reports great compliance with use. He is also had previous arterial work-up with no intervention recommended by letter, his vascular surgeon. He denies taking nutritional supplementation. He saw dermatology and had a biopsy of the ulcer site. He also was previously treated by infectious disease for various contaminations and infections. He is not antibiotics at this time nor does he have any redness or odor coming from the wound. He denies fever, chill, nausea, vomiting, loss of appetite. Progress of Wound: Stable ulcers. No new concerns at this time. - Physical Exam Vital Signs Temp Pulse Resp BP 97.3 F L 79 16 142/84 H 12/23/20 09:05 12/23/20 09:05 12/09/20 09:02 12/23/20 09:05 General: Alert, Oriented x3, Cooperative, No apparent distress HEENT: Atraumatic, Normocephalic Oral: Moist Mucosa Lungs: Normal air movement Skin: Ulcer/ Wound Wound Measurements and Assessment WC - Nurse 1 - General Ulcer Measurement Start: 12/09/20 09:02 Freq: Status: Active Protocol: Activity Type Activity Date Activity User E-Sign Co-Sign Detail Recorded Client Recorded Date Recorded By Document 12/23/20 09:05 TIFFANY [id number] 12/23/20 09:14 TIFFANY 12/23/20 09:05 Wound Center Nurse 1 [Ulcer Assessment] #12 Medial Superior LLE -Current Size (cm) - Length 2.2 -Current Size (cm) - Width 4.4 -Current Size (cm) - Depth 0.2 -Total Square Cm 9.68 -Exudate Amt Medium -Exudate Type Serosanguineous -Wound Margin Distinct, Outline Attached -Granulation Amt Medium (34-66%) -Granulation Quality Red -Necrosis Amt Medium (34-66%) -Necrotic Tissue Type Adherent Slough -Texture (Ara-wound Skin Appearance) Assessed, Scarring -Moisture (Ara-wound Skin Appearance Assessed,Dry/ ) Scaly -Color (Ara-wound Skin Appearance) No Abnormality, Assessed -Temperature (Ara-wound Skin No Abnormality Appearance) (Pt Warm) -Tenderness on Palpation (Ara-wound No Skin Appearance) -Ulcer Cleansing Rinsed/ Irrigated with Saline -Foul Odor after Cleansing No -Anesthetic Used 4% Lidocaine Solution #11 Medial Inferior LLE -Current Size (cm) - Length 3.1 -Current Size (cm) - Width 3.5 -Current Size (cm) - Depth 0.2 -Total Square Cm 10.85 -Exudate Amt Medium -Exudate Type Serosanguineous -Wound Margin Distinct, Outline Attached -Granulation Amt Medium (34-66%) -Granulation Quality Red -Necrosis Amt Medium (34-66%) -Necrotic Tissue Type Adherent Slough -Texture (Ara-wound Skin Appearance) Assessed, Scarring -Moisture (Ara-wound Skin Appearance Assessed,Dry/ ) Scaly -Color (Ara-wound Skin Appearance) No Abnormality, Assessed -Temperature (Ara-wound Skin No Abnormality Appearance) (Pt Warm) -Tenderness on Palpation (Ara-wound No Skin Appearance) -Ulcer Cleansing Rinsed/ Irrigated with Saline -Foul Odor after Cleansing No -Anesthetic Used 4% Lidocaine Solution #10 Left Medial Ankle -Current Size (cm) - Length 3 -Current Size (cm) - Width 3.3 -Current Size (cm) - Depth 0.3 -Total Square Cm 9.9 -Exudate Amt Medium -Exudate Type Serosanguineous -Wound Margin Distinct, Outline Attached -Granulation Amt Medium (34-66%) -Granulation Quality Red -Necrosis Amt Medium (34-66%) -Necrotic Tissue Type Adherent Slough -Texture (Ara-wound Skin Appearance) Assessed, Scarring -Moisture (Ara-wound Skin Appearance Assessed,Dry/ ) Scaly -Color (Ara-wound Skin Appearance) No Abnormality, Assessed -Temperature (Ara-wound Skin No Abnormality Appearance) (Pt Warm) -Tenderness on Palpation (Ara-wound No Skin Appearance) -Ulcer Cleansing Rinsed/ Irrigated with Saline -Foul Odor after Cleansing No -Anesthetic Used 4% Lidocaine Solution WC - Nurse 2 - General Ulcer CM Notes Start: 12/09/20 09:02 Freq: Status: Active Protocol: Activity Type Activity Date Activity User E-Sign Co-Sign Detail Recorded Client Recorded Date Recorded By Document 12/23/20 09:26 MW [id number] 12/23/20 09:37 MW 12/23/20 09:26 Wound Center Nurse 2 [Procedure/Treatment] #12 Medial Superior LLE -Time 09:30 -Correct Patient Yes -Correct Side, Site, Position Yes -Correct Procedure Yes -Procedure Performed Yes -Type of Procedure Debridement -Clinical Debridement Subcutaneous -Tissue Removed Subcutaneous -Post Debridement (cm) - Length 3.0 -Post Debridement (cm) - Width 5.0 -Post Debridement (cm) - Depth 0.1 -Total Square (Post) (cm) 15.00 -Area of Debridement (cm) - Length 3.0 -Area of Debridement (cm) - Width 5.0 -Total Square (Area) (cm) 15.00 -Tunneling No -Undermining/Tunneling No -Circular Undermining No -Wound/Ulcer Outcome Not Healed -Ulcer Cleansing Rinsed/ Irrigated with Saline -Foul Odor after Cleansing No -Bioengineered Tissue No -Bleeding Controlled with Pressure -Offloading No -Treatment Response Procedure Tolerated Well -Debridement - Subq, 1st 20sq cm Yes #11 Medial Inferior LLE -Time 09:30 -Correct Patient Yes -Correct Side, Site, Position Yes -Correct Procedure Yes -Procedure Performed Yes -Type of Procedure Debridement -Clinical Debridement Subcutaneous -Tissue Removed Subcutaneous -Post Debridement (cm) - Length 3.1 -Post Debridement (cm) - Width 3.5 -Post Debridement (cm) - Depth 0.1 -Total Square (Post) (cm) 10.85 -Area of Debridement (cm) - Length 3.1 -Area of Debridement (cm) - Width 3.5 -Total Square (Area) (cm) 10.85 -Tunneling No -Undermining/Tunneling No -Circular Undermining No -Wound/Ulcer Outcome Not Healed -Ulcer Cleansing Rinsed/ Irrigated with Saline -Foul Odor after Cleansing No -Bioengineered Tissue No -Bleeding Controlled with Pressure -Offloading No -Treatment Response Procedure Tolerated Well -Debridement - Subq, 1st 20sq cm No #10 Left Medial Ankle -Time 09:31 -Correct Patient Yes -Correct Side, Site, Position Yes -Correct Procedure Yes -Procedure Performed Yes -Type of Procedure Debridement -Clinical Debridement Subcutaneous -Tissue Removed Subcutaneous -Post Debridement (cm) - Length 3.1 -Post Debridement (cm) - Width 3.0 -Post Debridement (cm) - Depth 0.2 -Total Square (Post) (cm) 9.30 -Area of Debridement (cm) - Length 3.1 -Area of Debridement (cm) - Width 3.0 -Total Square (Area) (cm) 9.30 -Tunneling No -Undermining/Tunneling No -Circular Undermining No -Wound/Ulcer Outcome Not Healed -Ulcer Cleansing Rinsed/ Irrigated with Saline -Foul Odor after Cleansing No -Bioengineered Tissue No -Bleeding Controlled with Pressure -Offloading No -Treatment Response Procedure Tolerated Well -Debridement - Subq, 1st 20sq cm No [See Physician Procedure note for Specifics] Pain Scale: 0-10 Numeric [Pain] -Is Patient Pain Free? Yes Musculoskeletal: No Muscle Wasting Neurological: Cranial nerves II-XII grossly intact Psych/Mental Status: Normal Affect Debridement Note Post-Debridement Measurements/Treatment WC - Nurse 2 - General Ulcer CM Notes Start: 12/09/20 09:02 Freq: Status: Active Protocol: Activity Type Activity Date Activity User E-Sign Co-Sign Detail Recorded Client Recorded Date Recorded By Document 12/09/20 09:17 MW [id number] 12/09/20 09:25 MW Document 12/23/20 09:26 MW [id number] 12/23/20 09:37 MW 12/09/20 12/23/20 09:17 09:26 Wound Center Nurse 2 #12 Medial Superior LLE -Time 09:20 09:30 -Correct Patient Yes Yes -Correct Side, Site, Position Yes Yes -Correct Procedure Yes Yes -Procedure Performed Yes Yes -Type of Procedure Debridement Debridement -Clinical Debridement Subcutaneous Subcutaneous -Tissue Removed Subcutaneous Subcutaneous -Post Debridement (cm) - Length 2.8 3.0 -Post Debridement (cm) - Width 5.0 5.0 -Post Debridement (cm) - Depth 0.1 0.1 -Total Square (Post) (cm) 14.00 15.00 -Area of Debridement (cm) - Length 2.8 3.0 -Area of Debridement (cm) - Width 5.0 5.0 -Total Square (Area) (cm) 14.00 15.00 -Tunneling No No -Undermining/Tunneling No No -Circular Undermining No No -Wound/Ulcer Outcome Not Healed Not Healed -Ulcer Cleansing Rinsed/ Rinsed/ Irrigated with Irrigated with Saline Saline -Foul Odor after Cleansing No No -Bioengineered Tissue No No -Bleeding Controlled with Pressure Pressure -Offloading No No -Treatment Response Procedure Procedure Tolerated Well Tolerated Well -Debridement - Subq, 1st 20sq cm Yes Yes #11 Medial Inferior LLE -Time 09: 09:30 -Correct Patient Yes Yes -Correct Side, Site, Position Yes Yes -Correct Procedure Yes Yes -Procedure Performed Yes Yes -Type of Procedure Debridement Debridement -Clinical Debridement Subcutaneous Subcutaneous -Tissue Removed Subcutaneous Subcutaneous -Post Debridement (cm) - Length 4.0 3.1 -Post Debridement (cm) - Width 4.0 3.5 -Post Debridement (cm) - Depth 0.1 0.1 -Total Square (Post) (cm) 16.00 10.85 -Area of Debridement (cm) - Length 4.0 3.1 -Area of Debridement (cm) - Width 4.0 3.5 -Total Square (Area) (cm) 16.00 10.85 -Tunneling No No -Undermining/Tunneling No No -Circular Undermining No No -Wound/Ulcer Outcome Not Healed Not Healed -Ulcer Cleansing Rinsed/ Rinsed/ Irrigated with Irrigated with Saline Saline -Foul Odor after Cleansing No No -Bioengineered Tissue No No -Bleeding Controlled with Pressure Pressure -Offloading No No -Treatment Response Procedure Procedure Tolerated Well Tolerated Well -Debridement - Subq, 1st 20sq cm No No #10 Left Medial Ankle -Time 09: 09:31 -Correct Patient Yes Yes -Correct Side, Site, Position Yes Yes -Correct Procedure Yes Yes -Procedure Performed Yes Yes -Type of Procedure Debridement Debridement -Clinical Debridement Subcutaneous Subcutaneous -Tissue Removed Subcutaneous Subcutaneous -Post Debridement (cm) - Length 3.2 3.1 -Post Debridement (cm) - Width 3.0 3.0 -Post Debridement (cm) - Depth 0.2 0.2 -Total Square (Post) (cm) 9.60 9.30 -Area of Debridement (cm) - Length 3.2 3.1 -Area of Debridement (cm) - Width 3.0 3.0 -Total Square (Area) (cm) 9.60 9.30 -Tunneling No No -Undermining/Tunneling No No -Circular Undermining No No -Wound/Ulcer Outcome Not Healed Not Healed -Ulcer Cleansing Rinsed/ Rinsed/ Irrigated with Irrigated with Saline Saline -Foul Odor after Cleansing No No -Bioengineered Tissue No No -Bleeding Controlled with Pressure Pressure -Offloading No No -Treatment Response Procedure Procedure Tolerated Well Tolerated Well -Debridement - Subq, 1st 20sq cm No No Pain Scale: 0-10 Numeric Is Patient Pain Free? Yes Yes - Nurse 3 - General Ulcer D/C NN Start: 12/09/20 09:02 Freq: Status: Active Protocol: Activity Type Activity Date Activity User E-Sign Co-Sign Detail Recorded Client Recorded Date Recorded By Document 12/09/20 09:40 MS [id number] 12/09/20 09:43 MS 12/09/20 09:40 Wound Care Nurse 3 #12 Medial Superior LLE -Other Dressing AQACEL AG , KERAMAX,ABD #11 Medial Inferior LLE -Ulcer Cleansing Rinsed/ Irrigated with Saline -Foul Odor after Cleansing No -Other Dressing AQACEL AG, KERAMAX #10 Left Medial Ankle -Ulcer Cleansing Rinsed/ Irrigated with Saline -Other Dressing AQUACEL AG, KERAMAX Treatment Response Procedure Tolerated Well Pain Scale: 0-10 Numeric Is Patient Pain Free? Yes - Visit Discharge Discharge Condition Stable Ambulatory Status Ambulatory Wound debrided: Left lower extremity ( medial ankle) Type of Debridement: Excisional debridement Anesthesia Used: 4% Lidocaine Solution Depth: Down to and including healthy tissue, in the subcutaneous layer Percentage of wound debrided: 100 Instrument Used: 5mm curette Tissue Removed: Slough and devitalized tissue Severity: Fat Layer Exposed Amount of bleeding with debridement: Mild Bleeding Controlled with: Pressure Patient tolerated procedure well - Additional Wound Wound debrided: Left lower extremity ( Inferior ) Type of Debridement: Excisional debridement Anesthesia Used: 4% Lidocaine Solution Depth: Down to and including healthy tissue, in the subcutaneous layer Percentage of wound debrided: 100 Instrument Used: 5mm curette Tissue Removed: Slough and devitalized tissue Severity: Fat Layer Exposed Amount of bleeding with debridement: Mild Bleeding Controlled with: Pressure Patient tolerated procedure: Patient tolerated procedure well - Additional Wound Wound debrided: Left lower extremity ( Superior ) Type of Debridement: Excisional debridement Anesthesia Used: 4% Lidocaine Solution Depth: Down to and including healthy tissue Percentage of wound debrided: 100 Instrument Used: 5mm curette Tissue Removed: Slough and devitalized tissue Severity: Fat Layer Exposed Amount of bleeding with debridement: Mild Bleeding Controlled with: Pressure Patient tolerated procedure: Patient tolerated procedure well Assessment/Plan Active Problems Ulcer of left lower extremity with fat layer exposed (Chronic) Delayed wound healing (Chronic) Chronic venous insufficiency (Chronic) Peripheral vascular occlusive disease (Chronic) Assessment: Chronic left leg ulcer. Venous insufficiency. Leg edema. Delayed ulcer healing. Plan: Debridement done as documented above, procedure was well tolerated. Cleanse daily and continue Aquacel Ag and keramax. Change daily to twice daily depending on drainage. Continue use of compression stockings, leg elevation and exercise. Increased protein intake , protein supplements, zinc and vitamin C also recommended. His questions were answered and he was advised to call with any further questions or concerns. Follow-up in 1 week. This note was generated with [employer] dictation software. It may contain incorrect words, spelling, and punctuation that were not noted in checking the note before signing. [id number]: [id number] Lakeisha subq tissue 20 sq cm/< Add On Codes: 02080 Lakeisha subq tissue add-on
== END 2020-12-26 23:59 ==
LOC: WC 09:00
PROVIDERS: Visit Provider Internal Medicine
DX: L97.922 Non-pressure chronic ulcer of unspecified part of left lower leg with fat layer exposed (principal); I87.2 Venous insufficiency (chronic) (peripheral); I73.9 Peripheral vascular disease, unspecified; T14.8XXD Other injury of unspecified body region, subsequent encounter; R60.0 Localized edema
CPT/HCPCS: 11042; 11045

== ENCOUNTER 2021-01-13 09:15 | Outpatient (RCR) | payer BC, SELFPAY ==
[2020-12-27 00:19] VITALS: BP 142/84; PULSE 79; RESP 16; TEMP 36.3
[2020-12-30 09:51] VITALS: BP 132/74; PULSE 87; TEMP 36.1; BMI 31.4
--- NOTE | 2020-12-30 13:16 | PCM.WC.PN ---
(1) Ulcer of left lower extremity with fat layer exposed Status: Chronic Code(s): L97.922 - Non-pressure chronic ulcer of unspecified part of left lower leg with fat layer exposed (2) Chronic venous insufficiency Status: Chronic (3) Delayed wound healing Status: Chronic Code(s): T14.8XXD - Other injury of unspecified body region, subsequent encounter (4) PVD (peripheral vascular disease) Status: Chronic Code(s): I73.9 - Peripheral vascular disease, unspecified Type of Wound Date of Service: 12/30/20 Chief Complaint: ulcers to the left lower leg History of Wound: This is a 54-year-old male presents to wound healing center with a long-standing history of chronic venous insufficiency, chronic venous hypertension, lower extremity edema, lower extremity pain, and chronic left lower extremity ulcer. The patient has previously undergone endovenous laser ablation of the left and right great saphenous vein, the small saphenous vein, the left accessory saphenous vein, and an incompetent left calf tail board worker vein located 15 cm proximal to the left medial malleolus. He is currently wearing graduated compression stockings which are documented to be 20-30 mmHg compression and these are thigh high. He reports great compliance with use. He is also had previous arterial work-up with no intervention recommended by letter, his vascular surgeon. He denies taking nutritional supplementation. He saw dermatology and had a biopsy of the ulcer site. He also was previously treated by infectious disease for various contaminations and infections. He is not antibiotics at this time nor does he have any redness or odor coming from the wound. He denies fever, chill, nausea, vomiting, loss of appetite. Progress of Wound: Stable ulcers. No new concerns at this time. - Physical Exam Vital Signs Temp Pulse Resp BP 97.0 F L 87 16 132/74 H 12/30/20 09:51 12/30/20 09:51 12/27/20 00:19 12/30/20 09:51 General: Alert, Oriented x3, Cooperative, No apparent distress HEENT: Atraumatic, Normocephalic Oral: Moist Mucosa Neck: Supple Lungs: Normal air movement Extremities: No cyanosis Skin: Ulcer/ Wound Wound Measurements and Assessment WC - Nurse 1 - General Ulcer Measurement Start: 12/30/20 09:51 Freq: Status: Active Protocol: Activity Type Activity Date Activity User E-Sign Co-Sign Detail Recorded Client Recorded Date Recorded By Document 12/30/20 09:51 REINA [id number] 12/30/20 09:57 REINA 12/30/20 09:51 Wound Center Nurse 1 [Ulcer Assessment] #12 Medial Superior LLE -Current Size (cm) - Length 3.0 -Current Size (cm) - Width 5.1 -Current Size (cm) - Depth 0.1 -Total Square Cm 15.30 -Exudate Amt Medium -Exudate Type Serosanguineous -Wound Margin Distinct, Outline Attached -Granulation Amt Medium (34-66%) -Granulation Quality Red -Necrosis Amt Medium (34-66%) -Necrotic Tissue Type Adherent Slough -Texture (Ara-wound Skin Appearance) Assessed, Scarring -Moisture (Ara-wound Skin Appearance Assessed,Dry/ ) Scaly -Color (Ara-wound Skin Appearance) No Abnormality, Assessed -Temperature (Ara-wound Skin No Abnormality Appearance) (Pt Warm) -Tenderness on Palpation (Ara-wound No Skin Appearance) -Ulcer Cleansing Rinsed/ Irrigated with Saline -Foul Odor after Cleansing No -Anesthetic Used 4% Lidocaine Solution #11 Medial Inferior LLE -Current Size (cm) - Length 3 -Current Size (cm) - Width 3.3 -Current Size (cm) - Depth 0.1 -Total Square Cm 9.9 -Exudate Amt Medium -Exudate Type Serosanguineous -Wound Margin Distinct, Outline Attached -Granulation Amt Medium (34-66%) -Granulation Quality Red -Necrosis Amt Medium (34-66%) -Necrotic Tissue Type Adherent Slough -Texture (Ara-wound Skin Appearance) Assessed, Scarring -Moisture (Ara-wound Skin Appearance Assessed,Dry/ ) Scaly -Color (Ara-wound Skin Appearance) No Abnormality, Assessed -Temperature (Ara-wound Skin No Abnormality Appearance) (Pt Warm) -Tenderness on Palpation (Ara-wound No Skin Appearance) -Ulcer Cleansing Rinsed/ Irrigated with Saline -Foul Odor after Cleansing No -Anesthetic Used 4% Lidocaine Solution #10 Left Medial Ankle -Current Size (cm) - Length 3.1 -Current Size (cm) - Width 2.5 -Current Size (cm) - Depth 0.2 -Total Square Cm 7.75 -Exudate Amt Medium -Exudate Type Serosanguineous -Wound Margin Distinct, Outline Attached -Granulation Amt Medium (34-66%) -Granulation Quality Red -Necrosis Amt Medium (34-66%) -Necrotic Tissue Type Adherent Slough -Texture (Ara-wound Skin Appearance) Assessed, Scarring -Moisture (Ara-wound Skin Appearance No Abnormality, ) Assessed -Color (Ara-wound Skin Appearance) No Abnormality, Assessed -Temperature (Ara-wound Skin No Abnormality Appearance) (Pt Warm) -Tenderness on Palpation (Ara-wound No Skin Appearance) -Ulcer Cleansing Rinsed/ Irrigated with Saline -Foul Odor after Cleansing No -Anesthetic Used 4% Lidocaine Solution WC - Nurse 2 - General Ulcer CM Notes Start: 12/30/20 09:51 Freq: Status: Active Protocol: Activity Type Activity Date Activity User E-Sign Co-Sign Detail Recorded Client Recorded Date Recorded By Document 12/30/20 10:12 MW [id number] 12/30/20 10:18 MW 12/30/20 10:12 Wound Center Nurse 2 [Procedure/Treatment] #12 Medial Superior LLE -Time 10:12 -Correct Patient Yes -Correct Side, Site, Position Yes -Correct Procedure Yes -Procedure Performed Yes -Type of Procedure Debridement -Clinical Debridement Subcutaneous -Tissue Removed Subcutaneous -Post Debridement (cm) - Length 2.7 -Post Debridement (cm) - Width 5.0 -Post Debridement (cm) - Depth 0.1 -Total Square (Post) (cm) 13.50 -Area of Debridement (cm) - Length 2.7 -Area of Debridement (cm) - Width 5.0 -Total Square (Area) (cm) 13.50 -Tunneling No -Undermining/Tunneling No -Circular Undermining No -Wound/Ulcer Outcome Not Healed -Ulcer Cleansing Rinsed/ Irrigated with Saline -Foul Odor after Cleansing No -Bioengineered Tissue No -Bleeding Controlled with Pressure -Offloading No -Treatment Response Procedure Tolerated Well -Debridement - Subq, 1st 20sq cm Yes #11 Medial Inferior LLE -Time 10:12 -Correct Patient Yes -Correct Side, Site, Position Yes -Correct Procedure Yes -Procedure Performed Yes -Type of Procedure Debridement -Clinical Debridement Subcutaneous -Tissue Removed Subcutaneous -Post Debridement (cm) - Length 3.0 -Post Debridement (cm) - Width 4.0 -Post Debridement (cm) - Depth 0.1 -Total Square (Post) (cm) 12.00 -Area of Debridement (cm) - Length 3.0 -Area of Debridement (cm) - Width 4.0 -Total Square (Area) (cm) 12.00 -Tunneling No -Undermining/Tunneling No -Circular Undermining No -Wound/Ulcer Outcome Not Healed -Ulcer Cleansing Rinsed/ Irrigated with Saline -Foul Odor after Cleansing No -Bioengineered Tissue No -Bleeding Controlled with Pressure -Offloading No -Treatment Response Procedure Tolerated Well -Debridement - Subq, 1st 20sq cm No #10 Left Medial Ankle -Time 10:12 -Correct Patient Yes -Correct Side, Site, Position Yes -Correct Procedure Yes -Procedure Performed Yes -Type of Procedure Debridement -Clinical Debridement Subcutaneous -Tissue Removed Subcutaneous -Post Debridement (cm) - Length 3.0 -Post Debridement (cm) - Width 3.0 -Post Debridement (cm) - Depth 0.2 -Total Square (Post) (cm) 9.00 -Area of Debridement (cm) - Length 3.0 -Area of Debridement (cm) - Width 3.0 -Total Square (Area) (cm) 9.00 -Tunneling No -Undermining/Tunneling No -Circular Undermining No -Wound/Ulcer Outcome Not Healed -Ulcer Cleansing Rinsed/ Irrigated with Saline -Foul Odor after Cleansing No -Bioengineered Tissue No -Bleeding Controlled with Pressure -Offloading No -Debridement - Subq, 20sq cm No [See Physician Procedure note for Specifics] Pain Scale: 0-10 Numeric [Pain] -Is Patient Pain Free? Yes WC - Nurse 3 - General Ulcer D/C NN Start: 12/30/20 09:51 Freq: Status: Active Protocol: Activity Type Activity Date Activity User E-Sign Co-Sign Detail Recorded Client Recorded Date Recorded By Document 12/30/20 10:25 DL [id number] 12/30/20 10:29 DL 12/30/20 10:25 Wound Care Nurse 3 [Wound Dressing] #12 Medial Superior LLE -Ulcer Cleansing Rinsed/ Irrigated with Saline -Foul Odor after Cleansing No -Other Dressing Ag/KerraMax -Primary Dressing Covered/Secured Secured with with Tape -Other Covering abd #11 Medial Inferior LLE -Ulcer Cleansing Rinsed/ Irrigated with Saline -Foul Odor after Cleansing No -Other Dressing AG/KerraMax -Primary Dressing Covered/Secured Secured with with Tape #10 Left Medial Ankle -Ulcer Cleansing Rinsed/ Irrigated with Saline -Foul Odor after Cleansing No -Other Dressing Ag/KerraMax -Primary Dressing Covered/Secured Secured with with Tape [Compression Applied] Left -Stockings Yes [Post Procedure Tolerated] -Treatment Response Procedure Tolerated Well Pain Scale: 0-10 Numeric [Pain] -Is Patient Pain Free? Yes WC - Visit Discharge [Visit Discharge Information] -Discharge Condition Stable -Ambulatory Status Ambulatory -Transportation Private Auto Musculoskeletal: No Muscle Wasting Neurological: Cranial nerves II-XII grossly intact Debridement Note Post-Debridement Measurements/Treatment WC - Nurse 2 - General Ulcer CM Notes Start: 12/30/20 09:51 Freq: Status: Active Protocol: Activity Type Activity Date Activity User E-Sign Co-Sign Detail Recorded Client Recorded Date Recorded By Document 12/30/20 10:12 MW [id number] 12/30/20 10:18 MW 12/30/20 10:12 Wound Center Nurse 2 #12 Medial Superior LLE -Time 10:12 -Correct Patient Yes -Correct Side, Site, Position Yes -Correct Procedure Yes -Procedure Performed Yes -Type of Procedure Debridement -Clinical Debridement Subcutaneous -Tissue Removed Subcutaneous -Post Debridement (cm) - Length 2.7 -Post Debridement (cm) - Width 5.0 -Post Debridement (cm) - Depth 0.1 -Total Square (Post) (cm) 13.50 -Area of Debridement (cm) - Length 2.7 -Area of Debridement (cm) - Width 5.0 -Total Square (Area) (cm) 13.50 -Tunneling No -Undermining/Tunneling No -Circular Undermining No -Wound/Ulcer Outcome Not Healed -Ulcer Cleansing Rinsed/ Irrigated with Saline -Foul Odor after Cleansing No -Bioengineered Tissue No -Bleeding Controlled with Pressure -Offloading No -Treatment Response Procedure Tolerated Well -Debridement - Subq, 1st 20sq cm Yes #11 Medial Inferior LLE -Time 10:12 -Correct Patient Yes -Correct Side, Site, Position Yes -Correct Procedure Yes -Procedure Performed Yes -Type of Procedure Debridement -Clinical Debridement Subcutaneous -Tissue Removed Subcutaneous -Post Debridement (cm) - Length 3.0 -Post Debridement (cm) - Width 4.0 -Post Debridement (cm) - Depth 0.1 -Total Square (Post) (cm) 12.00 -Area of Debridement (cm) - Length 3.0 -Area of Debridement (cm) - Width 4.0 -Total Square (Area) (cm) 12.00 -Tunneling No -Undermining/Tunneling No -Circular Undermining No -Wound/Ulcer Outcome Not Healed -Ulcer Cleansing Rinsed/ Irrigated with Saline -Foul Odor after Cleansing No -Bioengineered Tissue No -Bleeding Controlled with Pressure -Offloading No -Treatment Response Procedure Tolerated Well -Debridement - Subq, 1st 20sq cm No #10 Left Medial Ankle -Time 10:12 -Correct Patient Yes -Correct Side, Site, Position Yes -Correct Procedure Yes -Procedure Performed Yes -Type of Procedure Debridement -Clinical Debridement Subcutaneous -Tissue Removed Subcutaneous -Post Debridement (cm) - Length 3.0 -Post Debridement (cm) - Width 3.0 -Post Debridement (cm) - Depth 0.2 -Total Square (Post) (cm) 9.00 -Area of Debridement (cm) - Length 3.0 -Area of Debridement (cm) - Width 3.0 -Total Square (Area) (cm) 9.00 -Tunneling No -Undermining/Tunneling No -Circular Undermining No -Wound/Ulcer Outcome Not Healed -Ulcer Cleansing Rinsed/ Irrigated with Saline -Foul Odor after Cleansing No -Bioengineered Tissue No -Bleeding Controlled with Pressure -Offloading No -Debridement - Subq, 1st 20sq cm No Pain Scale: 0-10 Numeric Is Patient Pain Free? Yes WC - Nurse 3 - General Ulcer D/C NN Start: 12/30/20 09:51 Freq: Status: Active Protocol: Activity Type Activity Date Activity User E-Sign Co-Sign Detail Recorded Client Recorded Date Recorded By Document 12/30/20 10:25 DL [id number] 12/30/20 10:29 DL 12/30/20 10:25 Wound Care Nurse 3 #12 Medial Superior LLE -Ulcer Cleansing Rinsed/ Irrigated with Saline -Foul Odor after Cleansing No -Other Dressing Ag/KerraMax -Primary Dressing Covered/Secured with Secured with Tape -Other Covering abd #11 Medial Inferior LLE -Ulcer Cleansing Rinsed/ Irrigated with Saline -Foul Odor after Cleansing No -Other Dressing AG/KerraMax -Primary Dressing Covered/Secured with Secured with Tape #10 Left Medial Ankle -Ulcer Cleansing Rinsed/ Irrigated with Saline -Foul Odor after Cleansing No -Other Dressing Ag/KerraMax -Primary Dressing Covered/Secured with Secured with Tape Left -Stockings Yes Treatment Response Procedure Tolerated Well Pain Scale: 0-10 Numeric Is Patient Pain Free? Yes WC - Visit Discharge Discharge Condition Stable Ambulatory Status Ambulatory Transportation Private Auto Wound debrided: Left lower extremity (ankle) Type of Debridement: Excisional debridement Anesthesia Used: 4% Lidocaine Solution Depth: Down to and including healthy tissue, in the subcutaneous layer Percentage of wound debrided: 100 Instrument Used: 5mm curette Tissue Removed: Slough and devitalized tissue Severity: Fat Layer Exposed Amount of bleeding with debridement: Mild Bleeding Controlled with: Pressure Patient tolerated procedure well - Additional Wound Wound debrided: Left lower extremity inferior Type of Debridement: Excisional debridement Anesthesia Used: 4% Lidocaine Solution Depth: Down to and including healthy tissue, in the subcutaneous layer Percentage of wound debrided: 100 Instrument Used: 5mm curette Tissue Removed: Slough and devitalized tissue Severity: Fat Layer Exposed Amount of bleeding with debridement: Mild Bleeding Controlled with: Pressure Patient tolerated procedure: Patient tolerated procedure well - Additional Wound Wound debrided: Left lower extremity superior cluster Type of Debridement: Excisional debridement Anesthesia Used: 4% Lidocaine Solution Depth: Down to and including healthy tissue, in the subcutaneous layer Percentage of wound debrided: 100 Instrument Used: 5mm curette Tissue Removed: Slough and devitalized tissue Severity: Fat Layer Exposed Amount of bleeding with debridement: Mild Bleeding Controlled with: Pressure Patient tolerated procedure: Patient tolerated procedure well Assessment/Plan Assessment: Chronic left leg ulcer With fat layer exposed. Venous insufficiency. Leg edema. Delayed ulcer healing. Plan: Debridement done as documented above, procedure was well tolerated. Cleanse daily and continue Aquacel Ag and keramax. Change daily to twice daily depending on drainage. Continue use of compression stockings, leg elevation and exercise. Increased protein intake , protein supplements, zinc and vitamin C also recommended. His questions were answered and he was advised to call with any further questions or concerns. Follow-up in 2 weeks. This note was generated with [employer] software. It may contain incorrect words, spelling, and punctuation that were not noted in checking the note before signing. [id number]: [id number] Lakeisha subq tissue 20 sq cm/< Add On Codes: [id number] Lakeisha subq tissue add-on - Additional square centimeter debrided, please refer to clinical note.
[2021-01-13 09:18] VITALS: BP 140/73; PULSE 93; RESP 20; TEMP 36.6; BMI 31.4
--- NOTE | 2021-01-13 10:19 | PN.PCM_ITS ---
(1) Ulcer of left lower extremity with fat layer exposed Status: Chronic Code(s): L97.922 - Non-pressure chronic ulcer of unspecified part of left lower leg with fat layer exposed (2) Chronic venous insufficiency Status: Chronic (3) Delayed wound healing Status: Chronic Code(s): T14.8XXD - Other injury of unspecified body region, subsequent encounter (4) PVD (peripheral vascular disease) Status: Chronic Code(s): I73.9 - Peripheral vascular disease, unspecified Type of Wound Date of Service: 01/13/21 Chief Complaint: ulcers to the left lower leg History of Wound: This is a 54-year-old male presents to wound healing center with a long-standing history of chronic venous insufficiency, chronic venous hypertension, lower extremity edema, lower extremity pain, and chronic left lower extremity ulcer. 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 He is currently wearing graduated compression stockings which are documented to be 20-30 mmHg compression and these are thigh high. He reports great compliance with use. He is also had previous arterial work-up with no intervention recommended by letter, his vascular surgeon. He denies taking nutritional supplementation. He saw dermatology and had a biopsy of the ulcer site. He also was previously treated by infectious disease for various contaminations and infections. He is not antibiotics at this time nor does he have any redness or odor coming from the wound. He denies fever, chill, nausea, vomiting, loss of appetite. Progress of Wound: Some improvement noted. No new concerns at this time. - Physical Exam Vital Signs Temp Pulse Resp BP 97.8 F 93 20 H 140/73 H 01/13/21 09:18 01/13/21 09:18 01/13/21 09:18 01/13/21 09:18 General: Alert, Oriented x3, Cooperative, No apparent distress HEENT: Atraumatic, Normocephalic Oral: Moist Mucosa Neck: Supple Lungs: Normal air movement Abdomen: Obese Extremities: No cyanosis, Edema Skin: Ulcer/ Wound Wound Measurements and Assessment WC - Nurse 1 - General Ulcer Measurement Start: 12/30/20 09:51 Freq: Status: Active Protocol: Activity Type Activity Date Activity User E-Sign Co-Sign Detail Recorded Client Recorded Date Recorded By Document 01/13/21 09:18 DL [id number] 01/13/21 09:28 DL 01/13/21 09:18 Wound Center Nurse 1 [Ulcer Assessment] #12 Medial Superior LLE -Current Size (cm) - Length 2.2 -Current Size (cm) - Width 4.8 -Current Size (cm) - Depth 0.1 -Total Square Cm 10.56 -Photo Taken No -Exudate Amt Medium -Wound Margin Thickened -Granulation Amt Medium (34-66%) -Granulation Quality Red -Necrosis Amt Medium (34-66%) -Necrotic Tissue Type Adherent Slough -Structure Exposed N/A -Texture (Ara-wound Skin Appearance) Scarring -Moisture (Ara-wound Skin Appearance No Abnormality ) -Color (Ara-wound Skin Appearance) Hemosiderin Staining -Temperature (Ara-wound Skin No Abnormality Appearance) (Pt Warm) -Tenderness on Palpation (Ara-wound No Skin Appearance) -Ulcer Cleansing Wound Cleanser -Foul Odor after Cleansing No -Anesthetic Used 4% Lidocaine Solution #11 Medial Inferior LLE -Current Size (cm) - Length 3.5 -Current Size (cm) - Width 3.7 -Current Size (cm) - Depth 0.1 -Total Square Cm 12.95 -Photo Taken No -Exudate Amt Medium -Exudate Type Serosanguineous -Wound Margin Thickened -Granulation Amt Large (67-100%) -Granulation Quality Hyper- granulation,Red -Necrosis Amt Small (1-33%) -Necrotic Tissue Type Adherent Slough -Structure Exposed N/A -Texture (Ara-wound Skin Appearance) Scarring -Moisture (Ara-wound Skin Appearance No Abnormality ) -Color (Ara-wound Skin Appearance) Hemosiderin Staining -Temperature (Ara-wound Skin No Abnormality Appearance) (Pt Warm) -Ulcer Cleansing Wound Cleanser -Foul Odor after Cleansing No -Anesthetic Used 4% Lidocaine Solution #10 Left Medial Ankle -Current Size (cm) - Length 3.4 -Current Size (cm) - Width 3.9 -Current Size (cm) - Depth 0.3 -Total Square Cm 13.26 -Photo Taken No -Exudate Amt Medium -Exudate Type Serosanguineous -Wound Margin Thickened -Granulation Amt Medium (34-66%) -Granulation Quality Red -Necrosis Amt Medium (34-66%) -Necrotic Tissue Type Adherent Slough -Structure Exposed N/A -Texture (Ara-wound Skin Appearance) Scarring -Moisture (Ara-wound Skin Appearance No Abnormality ) -Color (Ara-wound Skin Appearance) Hemosiderin Staining -Temperature (Ara-wound Skin No Abnormality Appearance) (Pt Warm) -Tenderness on Palpation (Ara-wound No Skin Appearance) -Ulcer Cleansing Wound Cleanser -Foul Odor after Cleansing No -Anesthetic Used 4% Lidocaine Solution [Edema Assessment] -Left Calf (cm) 35.5 -Left Ankle (cm) 22.3 WC - Nurse 2 - General Ulcer CM Notes Start: 12/30/20 09:51 Freq: Status: Active Protocol: Activity Type Activity Date Activity User E-Sign Co-Sign Detail Recorded Client Recorded Date Recorded By Document 01/13/21 09:36 MW [id number] 01/13/21 09:49 MW 01/13/21 09:36 Wound Center Nurse 2 [Procedure/Treatment] #12 Medial Superior LLE -Time 09:38 -Correct Patient Yes -Correct Side, Site, Position Yes -Correct Procedure Yes -Procedure Performed Yes -Type of Procedure Debridement -Clinical Debridement Subcutaneous -Tissue Removed Subcutaneous -Post Debridement (cm) - Length 2.7 -Post Debridement (cm) - Width 4.5 -Post Debridement (cm) - Depth 0.1 -Total Square (Post) (cm) 12.15 -Area of Debridement (cm) - Length 2.7 -Area of Debridement (cm) - Width 4.5 -Total Square (Area) (cm) 12.15 -Tunneling No -Undermining/Tunneling No -Circular Undermining No -Wound/Ulcer Outcome Not Healed -Ulcer Cleansing Rinsed/ Irrigated with Saline -Foul Odor after Cleansing No -Bioengineered Tissue No -Bleeding Controlled with Pressure -Offloading No -Treatment Response Procedure Tolerated Well -Debridement - Subq, 1st 20sq cm Yes -Debridement, SubQ, ea addt'l 20sq cm 1 or part thereof #11 Medial Inferior LLE -Time 09:39 -Correct Patient Yes -Correct Side, Site, Position Yes -Correct Procedure Yes -Procedure Performed Yes -Type of Procedure Debridement -Clinical Debridement Subcutaneous -Tissue Removed Subcutaneous -Post Debridement (cm) - Length 3.4 -Post Debridement (cm) - Width 3.5 -Post Debridement (cm) - Depth 0.1 -Total Square (Post) (cm) 11.90 -Area of Debridement (cm) - Length 3.4 -Area of Debridement (cm) - Width 3.5 -Total Square (Area) (cm) 11.90 -Tunneling No -Undermining/Tunneling No -Circular Undermining No -Wound/Ulcer Outcome Not Healed -Ulcer Cleansing Rinsed/ Irrigated with Saline -Foul Odor after Cleansing No -Bioengineered Tissue No -Bleeding Controlled with Pressure -Offloading No -Treatment Response Procedure Tolerated Well -Debridement - Subq, 1st 20sq cm No #10 Left Medial Ankle -Time 09:40 -Correct Patient Yes -Correct Side, Site, Position Yes -Correct Procedure Yes -Procedure Performed Yes -Type of Procedure Debridement -Clinical Debridement Subcutaneous -Tissue Removed Subcutaneous -Post Debridement (cm) - Length 3.5 -Post Debridement (cm) - Width 3.2 -Post Debridement (cm) - Depth 0.2 -Total Square (Post) (cm) 11.20 -Area of Debridement (cm) - Length 3.5 -Area of Debridement (cm) - Width 3.2 -Total Square (Area) (cm) 11.20 -Tunneling No -Undermining/Tunneling No -Circular Undermining No -Wound/Ulcer Outcome Not Healed -Ulcer Cleansing Rinsed/ Irrigated with Saline -Foul Odor after Cleansing No -Bioengineered Tissue No -Bleeding Controlled with Pressure -Offloading No -Debridement - Subq, 1st 20sq cm No [See Physician Procedure note for Specifics] Pain Scale: 0-10 Numeric [Pain] -Is Patient Pain Free? Yes WC - Nurse 3 - General Ulcer D/C NN Start: 12/30/20 09:51 Freq: Status: Active Protocol: Activity Type Activity Date Activity User E-Sign Co-Sign Detail Recorded Client Recorded Date Recorded By Document 01/13/21 10:02 ALIYAH [id number] 01/13/21 10:04 ALIYAH 01/13/21 10:02 Wound Care Nurse 3 [Wound Dressing] #12 Medial Superior LLE -Ulcer Cleansing Rinsed/ Irrigated with Saline -Foul Odor after Cleansing No -Primary Dressing Applied Aquacel AG 4x4 -Other Dressing keramax -Aquacel AG 4x4 1 #11 Medial Inferior LLE -Ulcer Cleansing Rinsed/ Irrigated with Saline -Foul Odor after Cleansing No -Other Dressing AuquacelAg, Keramax #10 Left Medial Ankle -Ulcer Cleansing Rinsed/ Irrigated with Saline -Foul Odor after Cleansing No -Other Dressing AuquacelAg, Keramax Musculoskeletal: No Muscle Wasting Neurological: Cranial nerves II-XII grossly intact Psych/Mental Status: Normal Affect Debridement Note Post-Debridement Measurements/Treatment WC - Nurse 2 - General Ulcer CM Notes Start: 12/30/20 09:51 Freq: Status: Active Protocol: Activity Type Activity Date Activity User E-Sign Co-Sign Detail Recorded Client Recorded Date Recorded By Document 12/30/20 10:12 MW [id number] 12/30/20 10:18 MW Document 01/13/21 09:36 MW [id number] 01/13/21 09:49 MW 12/30/20 01/13/21 10:12 09:36 Wound Center Nurse 2 #12 Medial Superior LLE -Time 10:12 09:38 -Correct Patient Yes Yes -Correct Side, Site, Position Yes Yes -Correct Procedure Yes Yes -Procedure Performed Yes Yes -Type of Procedure Debridement Debridement -Clinical Debridement Subcutaneous Subcutaneous -Tissue Removed Subcutaneous Subcutaneous -Post Debridement (cm) - Length 2.7 2.7 -Post Debridement (cm) - Width 5.0 4.5 -Post Debridement (cm) - Depth 0.1 0.1 -Total Square (Post) (cm) 13.50 12.15 -Area of Debridement (cm) - Length 2.7 2.7 -Area of Debridement (cm) - Width 5.0 4.5 -Total Square (Area) (cm) 13.50 12.15 -Tunneling No No -Undermining/Tunneling No No -Circular Undermining No No -Wound/Ulcer Outcome Not Healed Not Healed -Ulcer Cleansing Rinsed/ Rinsed/ Irrigated with Irrigated with Saline Saline -Foul Odor after Cleansing No No -Bioengineered Tissue No No -Bleeding Controlled with Pressure Pressure -Offloading No No -Treatment Response Procedure Procedure Tolerated Well Tolerated Well -Debridement - Subq, 1st 20sq cm Yes Yes -Debridement, SubQ, ea addt'l 20sq cm 1 or part thereof #11 Medial Inferior LLE -Time 10:12 09:39 -Correct Patient Yes Yes -Correct Side, Site, Position Yes Yes -Correct Procedure Yes Yes -Procedure Performed Yes Yes -Type of Procedure Debridement Debridement -Clinical Debridement Subcutaneous Subcutaneous -Tissue Removed Subcutaneous Subcutaneous -Post Debridement (cm) - Length 3.0 3.4 -Post Debridement (cm) - Width 4.0 3.5 -Post Debridement (cm) - Depth 0.1 0.1 -Total Square (Post) (cm) 12.00 11.90 -Area of Debridement (cm) - Length 3.0 3.4 -Area of Debridement (cm) - Width 4.0 3.5 -Total Square (Area) (cm) 12.00 11.90 -Tunneling No No -Undermining/Tunneling No No -Circular Undermining No No -Wound/Ulcer Outcome Not Healed Not Healed -Ulcer Cleansing Rinsed/ Rinsed/ Irrigated with Irrigated with Saline Saline -Foul Odor after Cleansing No No -Bioengineered Tissue No No -Bleeding Controlled with Pressure Pressure -Offloading No No -Treatment Response Procedure Procedure Tolerated Well Tolerated Well -Debridement - Subq, 1st 20sq cm No No #10 Left Medial Ankle -Time 10:12 09:40 -Correct Patient Yes Yes -Correct Side, Site, Position Yes Yes -Correct Procedure Yes Yes -Procedure Performed Yes Yes -Type of Procedure Debridement Debridement -Clinical Debridement Subcutaneous Subcutaneous -Tissue Removed Subcutaneous Subcutaneous -Post Debridement (cm) - Length 3.0 3.5 -Post Debridement (cm) - Width 3.0 3.2 -Post Debridement (cm) - Depth 0.2 0.2 -Total Square (Post) (cm) 9.00 11.20 -Area of Debridement (cm) - Length 3.0 3.5 -Area of Debridement (cm) - Width 3.0 3.2 -Total Square (Area) (cm) 9.00 11.20 -Tunneling No No -Undermining/Tunneling No No -Circular Undermining No No -Wound/Ulcer Outcome Not Healed Not Healed -Ulcer Cleansing Rinsed/ Rinsed/ Irrigated with Irrigated with Saline Saline -Foul Odor after Cleansing No No -Bioengineered Tissue No No -Bleeding Controlled with Pressure Pressure -Offloading No No -Debridement - Subq, 1st 20sq cm No No Pain Scale: 0-10 Numeric Is Patient Pain Free? Yes Yes WC - Nurse 3 - General Ulcer D/C NN Start: 12/30/20 09:51 Freq: Status: Active Protocol: Activity Type Activity Date Activity User E-Sign Co-Sign Detail Recorded Client Recorded Date Recorded By Document 12/30/20 10:25 DL [id number] 12/30/20 10:29 DL Document 01/13/21 10:02 PL [id number] 01/13/21 10:04 PL 12/30/20 01/13/21 10:25 10:02 Wound Care Nurse 3 #12 Medial Superior LLE -Ulcer Cleansing Rinsed/ Rinsed/ Irrigated with Irrigated with Saline Saline -Foul Odor after Cleansing No No -Primary Dressing Applied Aquacel AG 4x4 -Other Dressing Ag/KerraMax keramax -Primary Dressing Covered/Secured with Secured with Tape -Other Covering abd -Aquacel AG 4x4 1 #11 Medial Inferior LLE -Ulcer Cleansing Rinsed/ Rinsed/ Irrigated with Irrigated with Saline Saline -Foul Odor after Cleansing No No -Other Dressing AG/KerraMax AuquacelAg, Keramax -Primary Dressing Covered/Secured with Secured with Tape #10 Left Medial Ankle -Ulcer Cleansing Rinsed/ Rinsed/ Irrigated with Irrigated with Saline Saline -Foul Odor after Cleansing No No -Other Dressing Ag/KerraMax AuquacelAg, Keramax -Primary Dressing Covered/Secured with Secured with Tape Left -Stockings Yes Treatment Response Procedure Tolerated Well Pain Scale: 0-10 Numeric Is Patient Pain Free? Yes WC - Visit Discharge Discharge Condition Stable Ambulatory Status Ambulatory Transportation Private Auto Wound debrided: Left lower extremity ankle Type of Debridement: Excisional debridement Anesthesia Used: 4% Lidocaine Solution Depth: Down to and including healthy tissue, in the subcutaneous layer Percentage of wound debrided: 100 Instrument Used: 5mm curette Tissue Removed: Slough and devitalized tissue Severity: Fat Layer Exposed Amount of bleeding with debridement: Mild Bleeding Controlled with: Pressure Patient tolerated procedure well - Additional Wound Wound debrided: Left lower extremity ( Inferior ) Type of Debridement: Excisional debridement Anesthesia Used: 4% Lidocaine Solution Depth: Down to and including healthy tissue, in the subcutaneous layer Percentage of wound debrided: 100 Instrument Used: 5mm curette Tissue Removed: Slough and devitalized tissue Severity: Fat Layer Exposed Amount of bleeding with debridement: Mild Bleeding Controlled with: Pressure Patient tolerated procedure: Patient tolerated procedure well - Additional Wound Wound debrided: Left lower extremity ( Superior ) Type of Debridement: Excisional debridement Anesthesia Used: 4% Lidocaine Solution Depth: Down to and including healthy tissue, in the subcutaneous layer Percentage of wound debrided: 100 Instrument Used: 5mm curette Tissue Removed: Slough and devitalized tissue Severity: Fat Layer Exposed Amount of bleeding with debridement: Mild Bleeding Controlled with: Pressure Assessment/Plan Active Problems Ulcer of left lower extremity with fat layer exposed (Chronic) PVD (peripheral vascular disease) (Chronic) Delayed wound healing (Chronic) Chronic venous insufficiency (Chronic) Assessment: Chronic left leg ulcer With fat layer exposed. Venous insufficiency . Leg edema. Delayed ulcer healing. Plan: Debridement done as documented above, procedure was well tolerated. Cleanse daily and continue Aquacel Ag and keramax. Change daily to twice daily depending on drainage. Continue use of compression stockings, leg elevation and exercise. Increased protein intake , protein supplements, zinc and vitamin C also recommended. His questions were answered and he was advised to call with any further questions or concerns. Follow-up in 2 weeks. This note was generated with [employer] dictation software. It may contain incorrect words, spelling, and punctuation that were not noted in checking the note before signing. [id number]: 19804 Lakeisha subq tissue 20 sq cm/< Add On Codes: 58621 Lakeisha subq tissue add-on
== END 2021-01-26 23:59 ==
LOC: WC 09:15
PROVIDERS: Visit Provider Internal Medicine
DX: I73.9 Peripheral vascular disease, unspecified (principal); I87.2 Venous insufficiency (chronic) (peripheral); L97.822 Non-pressure chronic ulcer of other part of left lower leg with fat layer exposed; R60.0 Localized edema; M79.606 Pain in leg, unspecified; L97.322 Non-pressure chronic ulcer of left ankle with fat layer exposed
CPT/HCPCS: 11042; 11045

== ENCOUNTER 2021-02-24 09:00 | Outpatient (RCR) | payer BC, SELFPAY ==
[2021-01-27 00:30] VITALS: BP 140/73; PULSE 93; RESP 20; TEMP 36.6
[2021-01-27 09:08] VITALS: BP 148/88; PULSE 75; RESP 18; TEMP 36.1; BMI 31.4
--- NOTE | 2021-01-27 12:33 | PN.PCM_ITS ---
(1) Ulcer of left lower extremity with fat layer exposed Status: Chronic Code(s): L97.922 - Non-pressure chronic ulcer of unspecified part of left lower leg with fat layer exposed (2) Chronic venous insufficiency Status: Chronic (3) Delayed wound healing Status: Chronic Code(s): T14.8XXD - Other injury of unspecified body region, subsequent encounter (4) Peripheral vascular occlusive disease Status: Chronic Code(s): I73.9 - Peripheral vascular disease, unspecified Type of Wound Date of Service: 01/27/21 Chief Complaint: ulcers to the left lower leg History of Wound: This is a 54-year-old male presents to wound healing center with a long-standing history of chronic venous insufficiency, chronic venous hypertension, lower extremity edema, lower extremity pain, and chronic left lower extremity ulcer. 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 He is currently wearing graduated compression stockings which are documented to be 20-30 mmHg compression and these are thigh high. He reports great compliance with use. He is also had previous arterial work-up with no intervention recommended by letter, his vascular surgeon. He denies taking nutritional supplementation. He saw dermatology and had a biopsy of the ulcer site. He also was previously treated by infectious disease for various contaminations and infections. He is not antibiotics at this time nor does he have any redness or odor coming from the wound. He denies fever, chill, nausea, vomiting, loss of appetite. Progress of Wound: Some improvement noted. No new concerns at this time. - Physical Exam Vital Signs Temp Pulse Resp BP 97.0 F L 75 18 148/88 H 01/27/21 09:08 01/27/21 09:08 01/27/21 09:08 01/27/21 09:08 General: Alert, Oriented x3, Cooperative, No apparent distress HEENT: Atraumatic, Normocephalic Oral: Moist Mucosa Neck: Supple Lungs: Normal air movement Extremities: No cyanosis Skin: Ulcer/ Wound Wound Measurements and Assessment WC - Nurse 1 - General Ulcer Measurement Start: 01/27/21 09:08 Freq: Status: Active Protocol: Activity Type Activity Date Activity User E-Sign Co-Sign Detail Recorded Client Recorded Date Recorded By Document 01/27/21 09:08 PL [id number] 01/27/21 09:19 PL 01/27/21 09:08 Wound Center Nurse 1 [Ulcer Assessment] #12 Medial Superior LLE -Combined with other wound No -Current Size (cm) - Length 2.0 -Current Size (cm) - Width 2.0 -Current Size (cm) - Depth 0.2 -Total Square Cm 4.00 -Photo Taken No -Epithelialization None Present -Tunneling No -Undermining/Tunneling No -Circular Undermining No -Exudate Amt Medium -Exudate Type Serosanguineous -Granulation Amt Large (67-100%) -Granulation Quality [place] -Slough/Fibrin Yes -Necrosis Amt Small (1-33%) -Necrotic Tissue Type Adherent Slough -Texture (Ara-wound Skin Appearance) No Abnormality -Moisture (Ara-wound Skin Appearance Dry/Scaly ) -Temperature (Ara-wound Skin No Abnormality Appearance) (Pt Warm) -Ulcer Cleansing Rinsed/ Irrigated with Saline -Foul Odor after Cleansing No -Anesthetic Used 4% Lidocaine Solution #11 Medial Inferior LLE -Current Size (cm) - Length 4.0 -Current Size (cm) - Width 4.0 -Current Size (cm) - Depth 0.2 -Total Square Cm 16.00 -Photo Taken No -Epithelialization None Present -Tunneling No -Undermining/Tunneling No -Circular Undermining No -Exudate Amt Medium -Exudate Type Serosanguineous -Granulation Amt Medium (34-66%) -Granulation Quality [place] -Slough/Fibrin Yes -Necrosis Amt Medium (34-66%) -Necrotic Tissue Type Adherent Slough -Moisture (Ara-wound Skin Appearance Dry/Scaly ) -Ulcer Cleansing Rinsed/ Irrigated with Saline -Foul Odor after Cleansing No -Anesthetic Used 4% Lidocaine Solution #10 Left Medial Ankle -Current Size (cm) - Length 3.5 -Current Size (cm) - Width 3.0 -Current Size (cm) - Depth 0.2 -Total Square Cm 10.50 -Photo Taken No -Epithelialization None Present -Tunneling No -Undermining/Tunneling No -Circular Undermining No -Exudate Amt Medium -Exudate Type Serosanguineous -Granulation Amt Medium (34-66%) -Granulation Quality [place] -Slough/Fibrin Yes -Necrosis Amt None Present (0 %) -Necrotic Tissue Type Adherent Slough -Moisture (Ara-wound Skin Appearance Dry/Scaly ) -Ulcer Cleansing Rinsed/ Irrigated with Saline -Foul Odor after Cleansing No -Anesthetic Used 4% Lidocaine Solution WC - Nurse 2 - General Ulcer CM Notes Start: 01/27/21 09:08 Freq: Status: Active Protocol: Activity Type Activity Date Activity User E-Sign Co-Sign Detail Recorded Client Recorded Date Recorded By Document 01/27/21 09:23 MW [id number] 01/27/21 09:31 MW 01/27/21 09:23 Wound Center Nurse 2 [Procedure/Treatment] #12 Medial Superior LLE -Time 09:26 -Correct Patient Yes -Correct Side, Site, Position Yes -Correct Procedure Yes -Procedure Performed Yes -Type of Procedure Debridement -Clinical Debridement Subcutaneous -Tissue Removed Subcutaneous -Post Debridement (cm) - Length 1.8 -Post Debridement (cm) - Width 2.5 -Post Debridement (cm) - Depth 0.1 -Total Square (Post) (cm) 4.50 -Area of Debridement (cm) - Length 1.8 -Area of Debridement (cm) - Width 2.5 -Total Square (Area) (cm) 4.50 -Tunneling No -Undermining/Tunneling No -Circular Undermining No -Wound/Ulcer Outcome Not Healed -Ulcer Cleansing Rinsed/ Irrigated with Saline -Foul Odor after Cleansing No -Bioengineered Tissue No -Bleeding Controlled with Pressure -Offloading No -Treatment Response Procedure Tolerated Well -Debridement - Subq, 1st 20sq cm Yes -Debridement, SubQ, ea addt'l 20sq cm 1 or part thereof #11 Medial Inferior LLE -Time 09:26 -Correct Patient Yes -Correct Side, Site, Position Yes -Correct Procedure Yes -Procedure Performed Yes -Type of Procedure Debridement -Clinical Debridement Subcutaneous -Tissue Removed Subcutaneous -Post Debridement (cm) - Length 3.5 -Post Debridement (cm) - Width 4.0 -Post Debridement (cm) - Depth 0.1 -Total Square (Post) (cm) 14.00 -Area of Debridement (cm) - Length 3.5 -Area of Debridement (cm) - Width 4.0 -Total Square (Area) (cm) 14.00 -Tunneling No -Undermining/Tunneling No -Circular Undermining No -Wound/Ulcer Outcome Not Healed -Ulcer Cleansing Rinsed/ Irrigated with Saline -Foul Odor after Cleansing No -Bioengineered Tissue No -Bleeding Controlled with Pressure -Offloading No -Treatment Response Procedure Tolerated Well -Debridement - Subq, 1st 20sq cm No #10 Left Medial Ankle -Time 09:27 -Correct Patient Yes -Correct Side, Site, Position Yes -Correct Procedure Yes -Procedure Performed Yes -Type of Procedure Debridement -Clinical Debridement Subcutaneous -Tissue Removed Subcutaneous -Post Debridement (cm) - Length 3.0 -Post Debridement (cm) - Width 3.2 -Post Debridement (cm) - Depth 0.2 -Total Square (Post) (cm) 9.60 -Area of Debridement (cm) - Length 3.0 -Area of Debridement (cm) - Width 3.2 -Total Square (Area) (cm) 9.60 -Tunneling No -Undermining/Tunneling No -Circular Undermining No -Wound/Ulcer Outcome Not Healed -Ulcer Cleansing Rinsed/ Irrigated with Saline -Foul Odor after Cleansing No -Bioengineered Tissue No -Bleeding Controlled with Pressure -Offloading No -Debridement - Subq, 1st 20sq cm No [See Physician Procedure note for Specifics] Pain Scale: 0-10 Numeric [Pain] -Is Patient Pain Free? Yes WC - Nurse 3 - General Ulcer D/C NN Start: 01/27/21 09:08 Freq: Status: Active Protocol: Activity Type Activity Date Activity User E-Sign Co-Sign Detail Recorded Client Recorded Date Recorded By Document 01/27/21 09:44 MS [id number] 01/27/21 09:47 MS 01/27/21 09:44 Wound Care Nurse 3 [Wound Dressing] #12 Medial Superior LLE -Ulcer Cleansing Rinsed/ Irrigated with Saline -Foul Odor after Cleansing No -Primary Dressing Applied Aquacel AG 4x4 -Primary Dressing Covered/Secured Secured with with Tape -Aquacel AG 4x4 0 #11 Medial Inferior LLE -Ulcer Cleansing Rinsed/ Irrigated with Saline -Foul Odor after Cleansing No -Primary Dressing Applied Aquacel AG 4x4 -Aquacel AG 4x4 0 #10 Left Medial Ankle -Ulcer Cleansing Rinsed/ Irrigated with Saline -Foul Odor after Cleansing No -Primary Dressing Applied Aquacel AG 4x4 -Aquacel AG 4x4 0 Pain Scale: 0-10 Numeric [Pain] -Is Patient Pain Free? Yes WC - Visit Discharge [Visit Discharge Information] -Discharge Condition Stable -Ambulatory Status Ambulatory -Medication Reconcilliation completed No & provided to patient/care provider -Clinical Summary of Care Provided Yes Musculoskeletal: No Muscle Wasting Neurological: Cranial nerves II-XII grossly intact Psych/Mental Status: Normal Affect Debridement Note Post-Debridement Measurements/Treatment WC - Nurse 2 - General Ulcer CM Notes Start: 01/27/21 09:08 Freq: Status: Active Protocol: Activity Type Activity Date Activity User E-Sign Co-Sign Detail Recorded Client Recorded Date Recorded By Document 01/27/21 09:23 MW [id number] 01/27/21 09:31 MW 01/27/21 09:23 Wound Center Nurse 2 #12 Medial Superior LLE -Time 09:26 -Correct Patient Yes -Correct Side, Site, Position Yes -Correct Procedure Yes -Procedure Performed Yes -Type of Procedure Debridement -Clinical Debridement Subcutaneous -Tissue Removed Subcutaneous -Post Debridement (cm) - Length 1.8 -Post Debridement (cm) - Width 2.5 -Post Debridement (cm) - Depth 0.1 -Total Square (Post) (cm) 4.50 -Area of Debridement (cm) - Length 1.8 -Area of Debridement (cm) - Width 2.5 -Total Square (Area) (cm) 4.50 -Tunneling No -Undermining/Tunneling No -Circular Undermining No -Wound/Ulcer Outcome Not Healed -Ulcer Cleansing Rinsed/ Irrigated with Saline -Foul Odor after Cleansing No -Bioengineered Tissue No -Bleeding Controlled with Pressure -Offloading No -Treatment Response Procedure Tolerated Well -Debridement - Subq, 1st 20sq cm Yes -Debridement, SubQ, ea addt'l 20sq cm 1 or part thereof #11 Medial Inferior LLE -Time 09:26 -Correct Patient Yes -Correct Side, Site, Position Yes -Correct Procedure Yes -Procedure Performed Yes -Type of Procedure Debridement -Clinical Debridement Subcutaneous -Tissue Removed Subcutaneous -Post Debridement (cm) - Length 3.5 -Post Debridement (cm) - Width 4.0 -Post Debridement (cm) - Depth 0.1 -Total Square (Post) (cm) 14.00 -Area of Debridement (cm) - Length 3.5 -Area of Debridement (cm) - Width 4.0 -Total Square (Area) (cm) 14.00 -Tunneling No -Undermining/Tunneling No -Circular Undermining No -Wound/Ulcer Outcome Not Healed -Ulcer Cleansing Rinsed/ Irrigated with Saline -Foul Odor after Cleansing No -Bioengineered Tissue No -Bleeding Controlled with Pressure -Offloading No -Treatment Response Procedure Tolerated Well -Debridement - Subq, 1st 20sq cm No #10 Left Medial Ankle -Time 09:27 -Correct Patient Yes -Correct Side, Site, Position Yes -Correct Procedure Yes -Procedure Performed Yes -Type of Procedure Debridement -Clinical Debridement Subcutaneous -Tissue Removed Subcutaneous -Post Debridement (cm) - Length 3.0 -Post Debridement (cm) - Width 3.2 -Post Debridement (cm) - Depth 0.2 -Total Square (Post) (cm) 9.60 -Area of Debridement (cm) - Length 3.0 -Area of Debridement (cm) - Width 3.2 -Total Square (Area) (cm) 9.60 -Tunneling No -Undermining/Tunneling No -Circular Undermining No -Wound/Ulcer Outcome Not Healed -Ulcer Cleansing Rinsed/ Irrigated with Saline -Foul Odor after Cleansing No -Bioengineered Tissue No -Bleeding Controlled with Pressure -Offloading No -Debridement - Subq, 1st 20sq cm No Pain Scale: 0-10 Numeric Is Patient Pain Free? Yes WC - Nurse 3 - General Ulcer D/C NN Start: 01/27/21 09:08 Freq: Status: Active Protocol: Activity Type Activity Date Activity User E-Sign Co-Sign Detail Recorded Client Recorded Date Recorded By Document 01/27/21 09:44 MS [id number] 01/27/21 09:47 MS 01/27/21 09:44 Wound Care Nurse 3 #12 Medial Superior LLE -Ulcer Cleansing Rinsed/ Irrigated with Saline -Foul Odor after Cleansing No -Primary Dressing Applied Aquacel AG 4x4 -Primary Dressing Covered/Secured with Secured with Tape -Aquacel AG 4x4 0 #11 Medial Inferior LLE -Ulcer Cleansing Rinsed/ Irrigated with Saline -Foul Odor after Cleansing No -Primary Dressing Applied Aquacel AG 4x4 -Aquacel AG 4x4 0 #10 Left Medial Ankle -Ulcer Cleansing Rinsed/ Irrigated with Saline -Foul Odor after Cleansing No -Primary Dressing Applied Aquacel AG 4x4 -Aquacel AG 4x4 0 Pain Scale: 0-10 Numeric Is Patient Pain Free? Yes WC - Visit Discharge Discharge Condition Stable Ambulatory Status Ambulatory Medication Reconcilliation completed & No provided to patient/care provider Clinical Summary of Care Provided Yes Wound debrided: Left ankle (medial) Type of Debridement: Excisional debridement Anesthesia Used: 4% Lidocaine Solution Depth: Down to and including healthy tissue, in the subcutaneous layer Percentage of wound debrided: 100 Instrument Used: 5mm curette Tissue Removed: Slough and devitalized tissue Severity: Fat Layer Exposed Amount of bleeding with debridement: Mild Bleeding Controlled with: Pressure Patient tolerated procedure well - Additional Wound Wound debrided: Left lower extremity (inferior) Type of Debridement: Excisional debridement Anesthesia Used: 4% Lidocaine Solution Depth: Down to and including healthy tissue, in the subcutaneous layer Percentage of wound debrided: 100 Instrument Used: 5mm curette Tissue Removed: Slough and devitalized tissue Severity: Fat Layer Exposed Amount of bleeding with debridement: Mild Bleeding Controlled with: Pressure Patient tolerated procedure: Patient tolerated procedure well - Additional Wound Wound debrided: Left lower extremity (superior) Type of Debridement: Excisional debridement Anesthesia Used: 4% Lidocaine Solution Depth: Down to and including healthy tissue, in the subcutaneous layer Percentage of wound debrided: 100 Instrument Used: 5mm curette Tissue Removed: Slough and devitalized tissue Severity: Fat Layer Exposed Amount of bleeding with debridement: Mild Bleeding Controlled with: Pressure Patient tolerated procedure: Patient tolerated procedure well Assessment/Plan Assessment: Chronic left leg ulcer With fat layer exposed. Venous insufficiency. Leg edema. Delayed ulcer healing. Plan: Debridement done as documented above, procedure was well tolerated. Cleanse daily and continue Aquacel Ag and keramax. Change daily to twice daily depending on drainage. Continue use of compression stockings, leg elevation and exercise. Increased protein intake , protein supplements, zinc and vitamin C also recommended. His questions were answered and he was advised to call with any further questions or concerns. Follow-up in 2 weeks. This note was generated with [email or web address] software. It may contain incorrect words, spelling, and punctuation that were not noted in checking the note before signing. [id number]: [id number] Lakeisha subq tissue 20 sq cm/< Add On Codes: [id number] Lakeisha subq tissue add-on
[2021-02-10 09:05] VITALS: BP 138/76; PULSE 83; TEMP 36.6; BMI 31.4
--- NOTE | 2021-02-10 13:46 | PCM.WC.PN ---
(1) Ulcer of left lower extremity with fat layer exposed Status: Chronic Code(s): L97.922 - Non-pressure chronic ulcer of unspecified part of left lower leg with fat layer exposed (2) Chronic venous insufficiency Status: Chronic (3) Delayed wound healing Status: Chronic Code(s): T14.8XXD - Other injury of unspecified body region, subsequent encounter (4) Peripheral vascular occlusive disease Status: Chronic Code(s): I73.9 - Peripheral vascular disease, unspecified Type of Wound Date of Service: 02/10/21 Chief Complaint: ulcers to the left lower leg History of Wound: This is a 54-year-old male presents to wound healing center with a long-standing history of chronic venous insufficiency, chronic venous hypertension, lower extremity edema, lower extremity pain, and chronic left lower extremity ulcer. 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 He is currently wearing graduated compression stockings which are documented to be 20-30 mmHg compression and these are thigh high. He reports great compliance with use. He is also had previous arterial work-up with no intervention recommended by letter, his vascular surgeon. He denies taking nutritional supplementation. He saw dermatology and had a biopsy of the ulcer site. He also was previously treated by infectious disease for various contaminations and infections. He is not antibiotics at this time nor does he have any redness or odor coming from the wound. He denies fever, chill, nausea, vomiting, loss of appetite. Progress of Wound: Some improvement noted. No new concerns at this time. - Physical Exam Vital Signs Temp Pulse Resp BP 97.8 F 83 18 138/76 H 02/10/21 09:05 02/10/21 09:05 01/27/21 09:08 02/10/21 09:05 General: Alert, Oriented x3, Cooperative, No apparent distress HEENT: Atraumatic, Normocephalic Oral: Moist Mucosa Neck: Supple Lungs: Normal air movement Extremities: No cyanosis Skin: Ulcer/ Wound Wound Measurements and Assessment WC - Nurse 1 - General Ulcer Measurement Start: 01/27/21 09:08 Freq: Status: Active Protocol: Activity Type Activity Date Activity User E-Sign Co-Sign Detail Recorded Client Recorded Date Recorded By Document 02/10/21 09:05 REINA [id number] 02/10/21 09:11 REINA 02/10/21 09:05 Wound Center Nurse 1 [Ulcer Assessment] #12 Medial Superior LLE -Current Size (cm) - Length 3 -Current Size (cm) - Width 3.3 -Current Size (cm) - Depth 0.2 -Total Square Cm 9.9 -Exudate Amt Medium -Exudate Type Serosanguineous -Wound Margin Distinct, Outline Attached -Granulation Amt Medium (34-66%) -Granulation Quality Red -Necrosis Amt Medium (34-66%) -Necrotic Tissue Type Adherent Slough -Texture (Ara-wound Skin Appearance) Assessed, Scarring -Moisture (Ara-wound Skin Appearance No Abnormality, ) Assessed -Color (Ara-wound Skin Appearance) No Abnormality, Assessed -Temperature (Ara-wound Skin No Abnormality Appearance) (Pt Warm) -Tenderness on Palpation (Ara-wound No Skin Appearance) -Ulcer Cleansing Rinsed/ Irrigated with Saline -Foul Odor after Cleansing No -Anesthetic Used 4% Lidocaine Solution #11 Medial Inferior LLE -Current Size (cm) - Length 2.5 -Current Size (cm) - Width 4.1 -Current Size (cm) - Depth 0.1 -Total Square Cm 10.25 -Exudate Amt Medium -Exudate Type Serosanguineous -Wound Margin Distinct, Outline Attached -Granulation Amt Medium (34-66%) -Granulation Quality Red -Necrosis Amt Medium (34-66%) -Necrotic Tissue Type Adherent Slough -Texture (Ara-wound Skin Appearance) Assessed, Scarring -Moisture (Ara-wound Skin Appearance No Abnormality, ) Assessed -Color (Ara-wound Skin Appearance) No Abnormality, Assessed -Temperature (Ara-wound Skin No Abnormality Appearance) (Pt Warm) -Tenderness on Palpation (Ara-wound No Skin Appearance) -Ulcer Cleansing Rinsed/ Irrigated with Saline -Foul Odor after Cleansing No -Anesthetic Used 4% Lidocaine Solution #10 Left Medial Ankle -Current Size (cm) - Length 3 -Current Size (cm) - Width 3.3 -Current Size (cm) - Depth 0.2 -Total Square Cm 9.9 -Exudate Amt Medium -Exudate Type Serosanguineous -Wound Margin Distinct, Outline Attached -Granulation Amt Medium (34-66%) -Granulation Quality Red -Necrosis Amt Medium (34-66%) -Necrotic Tissue Type Adherent Slough -Texture (Ara-wound Skin Appearance) Assessed, Scarring -Moisture (Ara-wound Skin Appearance No Abnormality, ) Assessed -Color (Ara-wound Skin Appearance) No Abnormality, Assessed -Temperature (Ara-wound Skin No Abnormality Appearance) (Pt Warm) -Tenderness on Palpation (Ara-wound No Skin Appearance) -Ulcer Cleansing Rinsed/ Irrigated with Saline -Foul Odor after Cleansing No -Anesthetic Used 4% Lidocaine Solution [Edema Assessment] -Left Calf (cm) 35.5 -Left Ankle (cm) 22.5 WC - Nurse 2 - General Ulcer CM Notes Start: 01/27/21 09:08 Freq: Status: Active Protocol: Activity Type Activity Date Activity User E-Sign Co-Sign Detail Recorded Client Recorded Date Recorded By Document 02/10/21 09:24 MW [id number] 02/10/21 09:32 MW 02/10/21 09:24 Wound Center Nurse 2 [Procedure/Treatment] #12 Medial Superior LLE -Time 09:25 -Correct Patient Yes -Correct Side, Site, Position Yes -Correct Procedure Yes -Procedure Performed Yes -Type of Procedure Debridement -Clinical Debridement Subcutaneous -Tissue Removed Subcutaneous -Post Debridement (cm) - Length 1.6 -Post Debridement (cm) - Width 2.5 -Post Debridement (cm) - Depth 0.1 -Total Square (Post) (cm) 4.00 -Area of Debridement (cm) - Length 1.6 -Area of Debridement (cm) - Width 2.5 -Total Square (Area) (cm) 4.00 -Tunneling No -Undermining/Tunneling No -Circular Undermining No -Wound/Ulcer Outcome Not Healed -Ulcer Cleansing Rinsed/ Irrigated with Saline -Foul Odor after Cleansing No -Bioengineered Tissue No -Bleeding Controlled with Pressure -Offloading No -Treatment Response Procedure Tolerated Well -Debridement - Subq, 1st 20sq cm Yes #11 Medial Inferior LLE -Time 09:25 -Correct Patient Yes -Correct Side, Site, Position Yes -Correct Procedure Yes -Procedure Performed Yes -Type of Procedure Debridement -Clinical Debridement Subcutaneous -Tissue Removed Subcutaneous -Post Debridement (cm) - Length 2.8 -Post Debridement (cm) - Width 3.4 -Post Debridement (cm) - Depth 0.1 -Total Square (Post) (cm) 9.52 -Area of Debridement (cm) - Length 2.8 -Area of Debridement (cm) - Width 3.4 -Total Square (Area) (cm) 9.52 -Tunneling No -Undermining/Tunneling No -Circular Undermining No -Wound/Ulcer Outcome Not Healed -Ulcer Cleansing Rinsed/ Irrigated with Saline -Foul Odor after Cleansing No -Bioengineered Tissue No -Bleeding Controlled with Pressure -Offloading No -Treatment Response Procedure Tolerated Well -Debridement - Subq, 1st 20sq cm No #10 Left Medial Ankle -Time 09:26 -Correct Patient Yes -Correct Side, Site, Position Yes -Correct Procedure Yes -Procedure Performed Yes -Type of Procedure Debridement -Clinical Debridement Subcutaneous -Tissue Removed Subcutaneous -Post Debridement (cm) - Length 3.0 -Post Debridement (cm) - Width 3.1 -Post Debridement (cm) - Depth 0.2 -Total Square (Post) (cm) 9.30 -Area of Debridement (cm) - Length 3.0 -Area of Debridement (cm) - Width 3.1 -Total Square (Area) (cm) 9.30 -Tunneling No -Undermining/Tunneling No -Circular Undermining No -Wound/Ulcer Outcome Not Healed -Ulcer Cleansing Rinsed/ Irrigated with Saline -Foul Odor after Cleansing No -Bioengineered Tissue No -Bleeding Controlled with Pressure -Offloading No -Treatment Response Procedure Tolerated Well -Debridement - Subq, 1st 20sq cm No [See Physician Procedure note for Specifics] Pain Scale: 0-10 Numeric [Pain] -Is Patient Pain Free? Yes WC - Nurse 3 - General Ulcer D/C NN Start: 01/27/21 09:08 Freq: Status: Active Protocol: Activity Type Activity Date Activity User E-Sign Co-Sign Detail Recorded Client Recorded Date Recorded By Document 02/10/21 09:40 REINA [id number] 02/10/21 09:40 KR 02/10/21 09:40 Wound Care Nurse 3 [Wound Dressing] #12 Medial Superior LLE -Ulcer Cleansing Rinsed/ Irrigated with Saline -Primary Dressing Covered/Secured Dry Gauze, with Secured with Tape #11 Medial Inferior LLE -Ulcer Cleansing Rinsed/ Irrigated with Saline -Primary Dressing Covered/Secured Dry Gauze, with Secured with Tape #10 Left Medial Ankle -Ulcer Cleansing Rinsed/ Irrigated with Saline -Primary Dressing Covered/Secured Dry Gauze, with Secured with Tape Pain Scale: 0-10 Numeric [Pain] -Is Patient Pain Free? Yes WC - Visit Discharge [Visit Discharge Information] -Discharge Condition Stable -Ambulatory Status Ambulatory -Transportation Private Auto Musculoskeletal: No Muscle Wasting Neurological: Cranial nerves II-XII grossly intact Psych/Mental Status: Normal Affect Debridement Note Post-Debridement Measurements/Treatment WC - Nurse 2 - General Ulcer CM Notes Start: 01/27/21 09:08 Freq: Status: Active Protocol: Activity Type Activity Date Activity User E-Sign Co-Sign Detail Recorded Client Recorded Date Recorded By Document 01/27/21 09:23 MW [id number] 01/27/21 09:31 MW Document 02/10/21 09:24 MW [id number] 02/10/21 09:32 MW 01/27/21 02/10/21 09:23 09:24 Wound Center Nurse 2 #12 Medial Superior LLE -Time 09:25 -Correct Patient Yes Yes -Correct Side, Site, Position Yes Yes -Correct Procedure Yes Yes -Procedure Performed Yes Yes -Type of Procedure Debridement Debridement -Clinical Debridement Subcutaneous Subcutaneous -Tissue Removed Subcutaneous Subcutaneous -Post Debridement (cm) - Length 1.8 1.6 -Post Debridement (cm) - Width 2.5 2.5 -Post Debridement (cm) - Depth 0.1 0.1 -Total Square (Post) (cm) 4.50 4.00 -Area of Debridement (cm) - Length 1.8 1.6 -Area of Debridement (cm) - Width 2.5 2.5 -Total Square (Area) (cm) 4.50 4.00 -Tunneling No No -Undermining/Tunneling No No -Circular Undermining No No -Wound/Ulcer Outcome Not Healed Not Healed -Ulcer Cleansing Rinsed/ Rinsed/ Irrigated with Irrigated with Saline Saline -Foul Odor after Cleansing No No -Bioengineered Tissue No No -Bleeding Controlled with Pressure Pressure -Offloading No No -Treatment Response Procedure Procedure Tolerated Well Tolerated Well -Debridement - Subq, 1st 20sq cm Yes Yes -Debridement, SubQ, ea addt'l 20sq cm 1 or part thereof #11 Medial Inferior LLE -Time 09:25 -Correct Patient Yes Yes -Correct Side, Site, Position Yes Yes -Correct Procedure Yes Yes -Procedure Performed Yes Yes -Type of Procedure Debridement Debridement -Clinical Debridement Subcutaneous Subcutaneous -Tissue Removed Subcutaneous Subcutaneous -Post Debridement (cm) - Length 3.5 2.8 -Post Debridement (cm) - Width 4.0 3.4 -Post Debridement (cm) - Depth 0.1 0.1 -Total Square (Post) (cm) 14.00 9.52 -Area of Debridement (cm) - Length 3.5 2.8 -Area of Debridement (cm) - Width 4.0 3.4 -Total Square (Area) (cm) 14.00 9.52 -Tunneling No No -Undermining/Tunneling No No -Circular Undermining No No -Wound/Ulcer Outcome Not Healed Not Healed -Ulcer Cleansing Rinsed/ Rinsed/ Irrigated with Irrigated with Saline Saline -Foul Odor after Cleansing No No -Bioengineered Tissue No No -Bleeding Controlled with Pressure Pressure -Offloading No No -Treatment Response Procedure Procedure Tolerated Well Tolerated Well -Debridement - Subq, 1st 20sq cm No No #10 Left Medial Ankle -Time 09: 09:26 -Correct Patient Yes Yes -Correct Side, Site, Position Yes Yes -Correct Procedure Yes Yes -Procedure Performed Yes Yes -Type of Procedure Debridement Debridement -Clinical Debridement Subcutaneous Subcutaneous -Tissue Removed Subcutaneous Subcutaneous -Post Debridement (cm) - Length 3.0 3.0 -Post Debridement (cm) - Width 3.2 3.1 -Post Debridement (cm) - Depth 0.2 0.2 -Total Square (Post) (cm) 9.60 9.30 -Area of Debridement (cm) - Length 3.0 3.0 -Area of Debridement (cm) - Width 3.2 3.1 -Total Square (Area) (cm) 9.60 9.30 -Tunneling No No -Undermining/Tunneling No No -Circular Undermining No No -Wound/Ulcer Outcome Not Healed Not Healed -Ulcer Cleansing Rinsed/ Rinsed/ Irrigated with Irrigated with Saline Saline -Foul Odor after Cleansing No No -Bioengineered Tissue No No -Bleeding Controlled with Pressure Pressure -Offloading No No -Treatment Response Procedure Tolerated Well -Debridement - Subq, 1st 20sq cm No No Pain Scale: 0-10 Numeric Is Patient Pain Free? Yes Yes WC - Nurse 3 - General Ulcer D/C NN Start: 01/27/21 09:08 Freq: Status: Active Protocol: Activity Type Activity Date Activity User E-Sign Co-Sign Detail Recorded Client Recorded Date Recorded By Document 01/27/21 09:44 MS [id number] 01/27/21 09:47 MS Document 02/10/21 09:40 KR [id number] 02/10/21 09:40 KR 01/27/21 02/10/21 09:44 09:40 Wound Care Nurse 3 #12 Medial Superior LLE -Ulcer Cleansing Rinsed/ Rinsed/ Irrigated with Irrigated with Saline Saline -Foul Odor after Cleansing No -Primary Dressing Applied Aquacel AG 4x4 -Primary Dressing Covered/Secured with Secured with Dry Gauze, Tape Secured with Tape -Aquacel AG 4x4 0 #11 Medial Inferior LLE -Ulcer Cleansing Rinsed/ Rinsed/ Irrigated with Irrigated with Saline Saline -Foul Odor after Cleansing No -Primary Dressing Applied Aquacel AG 4x4 -Primary Dressing Covered/Secured with Dry Gauze, Secured with Tape -Aquacel AG 4x4 0 #10 Left Medial Ankle -Ulcer Cleansing Rinsed/ Rinsed/ Irrigated with Irrigated with Saline Saline -Foul Odor after Cleansing No -Primary Dressing Applied Aquacel AG 4x4 -Primary Dressing Covered/Secured with Dry Gauze, Secured with Tape -Aquacel AG 4x4 0 Pain Scale: 0-10 Numeric Is Patient Pain Free? Yes Yes - Visit Discharge Discharge Condition Stable Stable Ambulatory Status Ambulatory Ambulatory Transportation Private Auto Medication Reconcilliation completed & No provided to patient/care provider Clinical Summary of Care Provided Yes Wound debrided: Left ankle (medial) Type of Debridement: Excisional debridement Anesthesia Used: 4% Lidocaine Solution Depth: Down to and including healthy tissue, in the subcutaneous layer Percentage of wound debrided: 100 Instrument Used: 5mm curette Tissue Removed: Slough and devitalized tissue Severity: Fat Layer Exposed Amount of bleeding with debridement: Mild Bleeding Controlled with: Pressure Patient tolerated procedure well - Additional Wound Wound debrided: Left lower extremity (inferior) Type of Debridement: Excisional debridement Anesthesia Used: 4% Lidocaine Solution Depth: Down to and including healthy tissue, in the subcutaneous layer Percentage of wound debrided: 100 Instrument Used: 5mm curette Tissue Removed: Slough and devitalized tissue Severity: Fat Layer Exposed Amount of bleeding with debridement: Mild Bleeding Controlled with: Pressure Patient tolerated procedure: Patient tolerated procedure well - Additional Wound Wound debrided: Left lower extremity (Superior) Type of Debridement: Excisional debridement Anesthesia Used: 4% Lidocaine Solution Depth: Down to and including healthy tissue, in the subcutaneous layer Percentage of wound debrided: 100 Instrument Used: 5mm curette Tissue Removed: Slough and devitalized tissue Severity: Fat Layer Exposed Amount of bleeding with debridement: Mild Bleeding Controlled with: Pressure Patient tolerated procedure: Patient tolerated procedure well Assessment/Plan Active Problems Ulcer of left lower extremity with fat layer exposed (Chronic) Delayed wound healing (Chronic) Chronic venous insufficiency (Chronic) Peripheral vascular occlusive disease (Chronic) Assessment: Chronic left leg ulcer With fat layer exposed. Venous insufficiency. Leg edema. Delayed ulcer healing. Plan: Debridement done as documented above, procedure was well tolerated. Some improvement noted. Cleanse daily and continue Aquacel Ag and keramax. Change daily to twice daily depending on drainage. Continue use of compression stockings, leg elevation and exercise. Increased protein intake , protein supplements, zinc and vitamin C also recommended. His questions were answered and he was advised to call with any further questions or concerns. Follow-up in 2 weeks per Patient preference. This note was generated with [email or web address] dictation software. It may contain incorrect words, spelling, and punctuation that were not noted in checking the note before signing. [id number]: [id number] Lakeisha subq tissue 20 sq cm/< Add On Codes: [id number] Lakeisha subq tissue add-on
[2021-02-24 09:01] VITALS: BP 139/76; PULSE 86; TEMP 36.6; BMI 31.4
--- NOTE | 2021-02-24 11:05 | PCM.WC.PN ---
History of Present Illness Date of Service: 02/24/21 Chief Complaint: ulcers to the left lower leg History of Wound: This is a 54-year-old male presents to wound healing center with a long-standing history of chronic venous insufficiency, chronic venous hypertension, lower extremity edema, lower extremity pain, and chronic left lower extremity ulcer. 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 He is currently wearing graduated compression stockings which are documented to be 20-30 mmHg compression and these are thigh high. He reports great compliance with use. He is also had previous arterial work-up with no intervention recommended by letter, his vascular surgeon. He denies taking nutritional supplementation. He saw dermatology and had a biopsy of the ulcer site. He also was previously treated by infectious disease for various contaminations and infections. He is not antibiotics at this time nor does he have any redness or odor coming from the wound. He denies fever, chill, nausea, vomiting, loss of appetite. Subjective Subjective: Reports increased drainage and pain predominantly from the left medial ankle ulcer. No history of trauma. Objective Data Objective Data Gustavo Jeronimo appears at his baseline however there is purulent drainage noted from the left medial ankle ulcer. Also reports mild pain. Vital Signs: Vital Signs Temp Pulse Resp BP 97.8 F 86 18 139/76 H 02/24/21 09:01 02/24/21 09:01 01/27/21 09:08 02/24/21 09:01 Body Mass Index (BMI) 31.4 Exam Physical Exam Const alert, oriented x3 and no apparent distress General Appearance: cooperative HEENT Head and Scalp: normal to inspection, normocephalic and atraumatic Face and Sinus: normal facial exam GI non-tender Skin Wounds: wounds noted Wound Narrative: Purulent drainage from left medial ankle ulcer Psych Appearance: grossly normal Assessment and Debridement #1 R Med Ankle Cluster: Post-Debridement Measurements/Treatment WC - Nurse 1 - General Ulcer Assessment Start: 01/27/21 09:08 Freq: Status: Active Protocol: KIMBERLY.LOWEXT Activity Type Activity Date Activity User E-Sign Co-Sign Detail Recorded Client Recorded Date Recorded By Document 02/24/21 09:01 KR [id number] 02/24/21 09:07 02/24/21 09:01 WC - Today's Visit Information Type of service Initial Visit Arrival Mode Ambulatory Patient Identification Verified (Name & Yes ) Patient Requires Transmission-Based No Precautions Height and Weight Body Mass Index (BMI) 31.4 BMI Classification Obese Vital Signs Temperature (97.8 F-99.1 F) 97.8 F Temperature Source Temporal Pulse Rate (60-100) 86 Pulse Location Monitor Blood Pressure (90/60-120/80) 139/76 H Blood Pressure Mean (mm Hg) 97 Source Monitor Position Semi-Fowlers Blood Pressure Location Left Arm History Since Last Visit- (Skip if this is Patient's initial visit) Have you changed medications since your No last visit? Any new allergies or adverse reactions No Had a fall/change in ADL's that may No increase risk of falls Signs or symptoms of abuse and/or No neglect since last visit Have you been in the hospital since your No last visit? Has dressing in place as prescribed Yes Has compression in place as prescribed Yes Has offloadiing in place as prescribed N/A Experienced any changes in pain level or No management Left Footwear Regular Shoe Right Footwear Regular Shoe Pain Scale: 0-10 Numeric Is Patient Pain Free? Yes - Nurse 2 - General Ulcer CM Notes Start: 01/27/21 09:08 Freq: Status: Active Protocol: Activity Type Activity Date Activity User E-Sign Co-Sign Detail Recorded Client Recorded Date Recorded By Document 02/24/21 09:26 [id number] 02/24/21 09:37 MW 02/24/21 09:26 Wound Center Nurse 2 #12 Medial Superior LLE -Time 09:28 -Correct Patient Yes -Type of Procedure Debridement -Clinical Debridement Subcutaneous -Tissue Removed Subcutaneous -Post Debridement (cm) - Length 1.9 -Post Debridement (cm) - Width 2.5 -Post Debridement (cm) - Depth 0.1 -Total Square (Post) (cm) 4.75 -Area of Debridement (cm) - Length 1.9 -Area of Debridement (cm) - Width 2.5 -Total Square (Area) (cm) 4.75 -Tunneling No -Undermining/Tunneling No -Circular Undermining No -Wound/Ulcer Outcome Not Healed -Ulcer Cleansing Rinsed/ Irrigated with Saline -Foul Odor after Cleansing No -Bioengineered Tissue No -Bleeding Controlled with Pressure -Offloading No -Treatment Response Procedure Tolerated Well -Debridement - Subq, 1st 20sq cm Yes -Debridement, SubQ, ea addt'l 20sq cm 1 or part thereof #11 Medial Inferior LLE -Time 09:28 -Correct Patient Yes -Correct Side, Site, Position Yes -Correct Procedure Yes -Procedure Performed Yes -Type of Procedure Debridement -Clinical Debridement Subcutaneous -Tissue Removed Subcutaneous -Post Debridement (cm) - Length 3.1 -Post Debridement (cm) - Width 3.6 -Post Debridement (cm) - Depth 0.2 -Total Square (Post) (cm) 11.16 -Area of Debridement (cm) - Length 3.1 -Area of Debridement (cm) - Width 3.6 -Total Square (Area) (cm) 11.16 -Tunneling No -Undermining/Tunneling No -Circular Undermining No -Wound/Ulcer Outcome Not Healed -Ulcer Cleansing Rinsed/ Irrigated with Saline -Foul Odor after Cleansing No -Bioengineered Tissue No -Bleeding Controlled with Pressure -Offloading No -Treatment Response Procedure Tolerated Well -Debridement - Subq, 1st 20sq cm No #10 Left Medial Ankle -Time 09:29 -Correct Patient Yes -Correct Side, Site, Position Yes -Correct Procedure Yes -Procedure Performed Yes -Type of Procedure Debridement -Clinical Debridement Subcutaneous -Tissue Removed Subcutaneous -Post Debridement (cm) - Length 7.0 -Post Debridement (cm) - Width 3.0 -Post Debridement (cm) - Depth 0.2 -Total Square (Post) (cm) 21.00 -Area of Debridement (cm) - Length 7.0 -Area of Debridement (cm) - Width 3.0 -Total Square (Area) (cm) 21.00 -Tunneling No -Undermining/Tunneling No -Circular Undermining No -Wound/Ulcer Outcome Not Healed -Ulcer Cleansing Rinsed/ Irrigated with Saline -Foul Odor after Cleansing No -Bioengineered Tissue No -Bleeding Controlled with Pressure -Offloading No -Treatment Response Procedure Tolerated Well -Debridement - Subq, 1st 20sq cm No Pain Scale: 0-10 Numeric Is Patient Pain Free? Yes 2R. R med ankle: Post-Debridement Measurements/Treatment WC - Nurse 1 - General Ulcer Assessment Start: 01/27/21 09:08 Freq: Status: Active Protocol: SHANTA Activity Type Activity Date Activity User E-Sign Co-Sign Detail Recorded Client Recorded Date Recorded By Document 02/24/21 09:01 KR [id number] 02/24/21 09:07 02/24/21 09:01 - Today's Visit Information Type of service Initial Visit Arrival Mode Ambulatory Patient Identification Verified (Name & Yes ) Patient Requires Transmission-Based No Precautions Height and Weight Body Mass Index (BMI) 31.4 BMI Classification Obese Vital Signs Temperature (97.8 F-99.1 F) 97.8 F Temperature Source Temporal Pulse Rate (60-100) 86 Pulse Location Monitor Blood Pressure (90/60-120/80) 139/76 H Blood Pressure Mean (mm Hg) 97 Source Monitor Position Semi-Fowlers Blood Pressure Location Left Arm History Since Last Visit- (Skip if this is Patient's initial visit) Have you changed medications since your No last visit? Any new allergies or adverse reactions No Had a fall/change in ADL's that may No increase risk of falls Signs or symptoms of abuse and/or No neglect since last visit Have you been in the hospital since your No last visit? Has dressing in place as prescribed Yes Has compression in place as prescribed Yes Has offloadiing in place as prescribed N/A Experienced any changes in pain level or No management Left Footwear Regular Shoe Right Footwear Regular Shoe Pain Scale: 0-10 Numeric Is Patient Pain Free? Yes - Nurse 2 - General Ulcer CM Notes Start: 01/27/21 09:08 Freq: Status: Active Protocol: Activity Type Activity Date Activity User E-Sign Co-Sign Detail Recorded Client Recorded Date Recorded By Document 02/24/21 09:26 [id number] 02/24/21 09:37 MW 02/24/21 09:26 Wound Center Nurse 2 #12 Medial Superior LLE -Time 09:28 -Correct Patient Yes -Type of Procedure Debridement -Clinical Debridement Subcutaneous -Tissue Removed Subcutaneous -Post Debridement (cm) - Length 1.9 -Post Debridement (cm) - Width 2.5 -Post Debridement (cm) - Depth 0.1 -Total Square (Post) (cm) 4.75 -Area of Debridement (cm) - Length 1.9 -Area of Debridement (cm) - Width 2.5 -Total Square (Area) (cm) 4.75 -Tunneling No -Undermining/Tunneling No -Circular Undermining No -Wound/Ulcer Outcome Not Healed -Ulcer Cleansing Rinsed/ Irrigated with Saline -Foul Odor after Cleansing No -Bioengineered Tissue No -Bleeding Controlled with Pressure -Offloading No -Treatment Response Procedure Tolerated Well -Debridement - Subq, 1st 20sq cm Yes -Debridement, SubQ, ea addt'l 20sq cm 1 or part thereof #11 Medial Inferior LLE -Time 09:28 -Correct Patient Yes -Correct Side, Site, Position Yes -Correct Procedure Yes -Procedure Performed Yes -Type of Procedure Debridement -Clinical Debridement Subcutaneous -Tissue Removed Subcutaneous -Post Debridement (cm) - Length 3.1 -Post Debridement (cm) - Width 3.6 -Post Debridement (cm) - Depth 0.2 -Total Square (Post) (cm) 11.16 -Area of Debridement (cm) - Length 3.1 -Area of Debridement (cm) - Width 3.6 -Total Square (Area) (cm) 11.16 -Tunneling No -Undermining/Tunneling No -Circular Undermining No -Wound/Ulcer Outcome Not Healed -Ulcer Cleansing Rinsed/ Irrigated with Saline -Foul Odor after Cleansing No -Bioengineered Tissue No -Bleeding Controlled with Pressure -Offloading No -Treatment Response Procedure Tolerated Well -Debridement - Subq, 1st 20sq cm No #10 Left Medial Ankle -Time 09:29 -Correct Patient Yes -Correct Side, Site, Position Yes -Correct Procedure Yes -Procedure Performed Yes -Type of Procedure Debridement -Clinical Debridement Subcutaneous -Tissue Removed Subcutaneous -Post Debridement (cm) - Length 7.0 -Post Debridement (cm) - Width 3.0 -Post Debridement (cm) - Depth 0.2 -Total Square (Post) (cm) 21.00 -Area of Debridement (cm) - Length 7.0 -Area of Debridement (cm) - Width 3.0 -Total Square (Area) (cm) 21.00 -Tunneling No -Undermining/Tunneling No -Circular Undermining No -Wound/Ulcer Outcome Not Healed -Ulcer Cleansing Rinsed/ Irrigated with Saline -Foul Odor after Cleansing No -Bioengineered Tissue No -Bleeding Controlled with Pressure -Offloading No -Treatment Response Procedure Tolerated Well -Debridement - Subq, 1st 20sq cm No Pain Scale: 0-10 Numeric Is Patient Pain Free? Yes #3 Right Guan: Post-Debridement Measurements/Treatment - Nurse 1 - General Ulcer Assessment Start: 01/27/21 09:08 Freq: Status: Active Protocol: SHANTA Activity Type Activity Date Activity User E-Sign Co-Sign Detail Recorded Client Recorded Date Recorded By Document 02/24/21 09:01 KR [id number] 02/24/21 09:07 KR 02/24/21 09:01 - Today's Visit Information Type of service Initial Visit Arrival Mode Ambulatory Patient Identification Verified (Name & Yes ) Patient Requires Transmission-Based No Precautions Height and Weight Body Mass Index (BMI) 31.4 BMI Classification Obese Vital Signs Temperature (97.8 F-99.1 F) 97.8 F Temperature Source Temporal Pulse Rate (60-100) 86 Pulse Location Monitor Blood Pressure (90/60-120/80) 139/76 H Blood Pressure Mean (mm Hg) 97 Source Monitor Position Semi-Fowlers Blood Pressure Location Left Arm History Since Last Visit- (Skip if this is Patient's initial visit) Have you changed medications since your No last visit? Any new allergies or adverse reactions No Had a fall/change in ADL's that may No increase risk of falls Signs or symptoms of abuse and/or No neglect since last visit Have you been in the hospital since your No last visit? Has dressing in place as prescribed Yes Has compression in place as prescribed Yes Has offloadiing in place as prescribed N/A Experienced any changes in pain level or No management Left Footwear Regular Shoe Right Footwear Regular Shoe Pain Scale: 0-10 Numeric Is Patient Pain Free? Yes - Nurse 2 - General Ulcer CM Notes Start: 01/27/21 09:08 Freq: Status: Active Protocol: Activity Type Activity Date Activity User E-Sign Co-Sign Detail Recorded Client Recorded Date Recorded By Document 02/24/21 09:26 MW [id number] 02/24/21 09:37 MW 02/24/21 09:26 Wound Center Nurse 2 #12 Medial Superior LLE -Time 09:28 -Correct Patient Yes -Type of Procedure Debridement -Clinical Debridement Subcutaneous -Tissue Removed Subcutaneous -Post Debridement (cm) - Length 1.9 -Post Debridement (cm) - Width 2.5 -Post Debridement (cm) - Depth 0.1 -Total Square (Post) (cm) 4.75 -Area of Debridement (cm) - Length 1.9 -Area of Debridement (cm) - Width 2.5 -Total Square (Area) (cm) 4.75 -Tunneling No -Undermining/Tunneling No -Circular Undermining No -Wound/Ulcer Outcome Not Healed -Ulcer Cleansing Rinsed/ Irrigated with Saline -Foul Odor after Cleansing No -Bioengineered Tissue No -Bleeding Controlled with Pressure -Offloading No -Treatment Response Procedure Tolerated Well -Debridement - Subq, 1st 20sq cm Yes -Debridement, SubQ, ea addt'l 20sq cm 1 or part thereof #11 Medial Inferior LLE -Time 09:28 -Correct Patient Yes -Correct Side, Site, Position Yes -Correct Procedure Yes -Procedure Performed Yes -Type of Procedure Debridement -Clinical Debridement Subcutaneous -Tissue Removed Subcutaneous -Post Debridement (cm) - Length 3.1 -Post Debridement (cm) - Width 3.6 -Post Debridement (cm) - Depth 0.2 -Total Square (Post) (cm) 11.16 -Area of Debridement (cm) - Length 3.1 -Area of Debridement (cm) - Width 3.6 -Total Square (Area) (cm) 11.16 -Tunneling No -Undermining/Tunneling No -Circular Undermining No -Wound/Ulcer Outcome Not Healed -Ulcer Cleansing Rinsed/ Irrigated with Saline -Foul Odor after Cleansing No -Bioengineered Tissue No -Bleeding Controlled with Pressure -Offloading No -Treatment Response Procedure Tolerated Well -Debridement - Subq, 1st 20sq cm No #10 Left Medial Ankle -Time 09:29 -Correct Patient Yes -Correct Side, Site, Position Yes -Correct Procedure Yes -Procedure Performed Yes -Type of Procedure Debridement -Clinical Debridement Subcutaneous -Tissue Removed Subcutaneous -Post Debridement (cm) - Length 7.0 -Post Debridement (cm) - Width 3.0 -Post Debridement (cm) - Depth 0.2 -Total Square (Post) (cm) 21.00 -Area of Debridement (cm) - Length 7.0 -Area of Debridement (cm) - Width 3.0 -Total Square (Area) (cm) 21.00 -Tunneling No -Undermining/Tunneling No -Circular Undermining No -Wound/Ulcer Outcome Not Healed -Ulcer Cleansing Rinsed/ Irrigated with Saline -Foul Odor after Cleansing No -Bioengineered Tissue No -Bleeding Controlled with Pressure -Offloading No -Treatment Response Procedure Tolerated Well -Debridement - Subq, 1st 20sq cm No Pain Scale: 0-10 Numeric Is Patient Pain Free? Yes #5 LEFT MEDIAL FOOT- (ABOVE ARCH): Post-Debridement Measurements/Treatment - Nurse 1 - General Ulcer Assessment Start: 01/27/21 09:08 Freq: Status: Active Protocol: SHANTA Activity Type Activity Date Activity User E-Sign Co-Sign Detail Recorded Client Recorded Date Recorded By Document 02/24/21 09:01 KR [id number] 02/24/21 09:07 KR 02/24/21 09:01 - Today's Visit Information Type of service Initial Visit Arrival Mode Ambulatory Patient Identification Verified (Name & Yes ) Patient Requires Transmission-Based No Precautions Height and Weight Body Mass Index (BMI) 31.4 BMI Classification Obese Vital Signs Temperature (97.8 F-99.1 F) 97.8 F Temperature Source Temporal Pulse Rate (60-100) 86 Pulse Location Monitor Blood Pressure (90/60-120/80) 139/76 H Blood Pressure Mean (mm Hg) 97 Source Monitor Position Semi-Fowlers Blood Pressure Location Left Arm History Since Last Visit- (Skip if this is Patient's initial visit) Have you changed medications since your No last visit? Any new allergies or adverse reactions No Had a fall/change in ADL's that may No increase risk of falls Signs or symptoms of abuse and/or No neglect since last visit Have you been in the hospital since your No last visit? Has dressing in place as prescribed Yes Has compression in place as prescribed Yes Has offloadiing in place as prescribed N/A Experienced any changes in pain level or No management Left Footwear Regular Shoe Right Footwear Regular Shoe Pain Scale: 0-10 Numeric Is Patient Pain Free? Yes - Nurse 2 - General Ulcer CM Notes Start: 01/27/21 09:08 Freq: Status: Active Protocol: Activity Type Activity Date Activity User E-Sign Co-Sign Detail Recorded Client Recorded Date Recorded By Document 02/24/21 09:26 MW [id number] 02/24/21 09:37 MW 02/24/21 09:26 Wound Center Nurse 2 #12 Medial Superior LLE -Time 09:28 -Correct Patient Yes -Type of Procedure Debridement -Clinical Debridement Subcutaneous -Tissue Removed Subcutaneous -Post Debridement (cm) - Length 1.9 -Post Debridement (cm) - Width 2.5 -Post Debridement (cm) - Depth 0.1 -Total Square (Post) (cm) 4.75 -Area of Debridement (cm) - Length 1.9 -Area of Debridement (cm) - Width 2.5 -Total Square (Area) (cm) 4.75 -Tunneling No -Undermining/Tunneling No -Circular Undermining No -Wound/Ulcer Outcome Not Healed -Ulcer Cleansing Rinsed/ Irrigated with Saline -Foul Odor after Cleansing No -Bioengineered Tissue No -Bleeding Controlled with Pressure -Offloading No -Treatment Response Procedure Tolerated Well -Debridement - Subq, 1st 20sq cm Yes -Debridement, SubQ, ea addt'l 20sq cm 1 or part thereof #11 Medial Inferior LLE -Time 09:28 -Correct Patient Yes -Correct Side, Site, Position Yes -Correct Procedure Yes -Procedure Performed Yes -Type of Procedure Debridement -Clinical Debridement Subcutaneous -Tissue Removed Subcutaneous -Post Debridement (cm) - Length 3.1 -Post Debridement (cm) - Width 3.6 -Post Debridement (cm) - Depth 0.2 -Total Square (Post) (cm) 11.16 -Area of Debridement (cm) - Length 3.1 -Area of Debridement (cm) - Width 3.6 -Total Square (Area) (cm) 11.16 -Tunneling No -Undermining/Tunneling No -Circular Undermining No -Wound/Ulcer Outcome Not Healed -Ulcer Cleansing Rinsed/ Irrigated with Saline -Foul Odor after Cleansing No -Bioengineered Tissue No -Bleeding Controlled with Pressure -Offloading No -Treatment Response Procedure Tolerated Well -Debridement - Subq, 1st 20sq cm No #10 Left Medial Ankle -Time 09:29 -Correct Patient Yes -Correct Side, Site, Position Yes -Correct Procedure Yes -Procedure Performed Yes -Type of Procedure Debridement -Clinical Debridement Subcutaneous -Tissue Removed Subcutaneous -Post Debridement (cm) - Length 7.0 -Post Debridement (cm) - Width 3.0 -Post Debridement (cm) - Depth 0.2 -Total Square (Post) (cm) 21.00 -Area of Debridement (cm) - Length 7.0 -Area of Debridement (cm) - Width 3.0 -Total Square (Area) (cm) 21.00 -Tunneling No -Undermining/Tunneling No -Circular Undermining No -Wound/Ulcer Outcome Not Healed -Ulcer Cleansing Rinsed/ Irrigated with Saline -Foul Odor after Cleansing No -Bioengineered Tissue No -Bleeding Controlled with Pressure -Offloading No -Treatment Response Procedure Tolerated Well -Debridement - Subq, 1st 20sq cm No Pain Scale: 0-10 Numeric Is Patient Pain Free? Yes #4 LEFT ANKLE: Post-Debridement Measurements/Treatment - Nurse 1 - General Ulcer Assessment Start: 01/27/21 09:08 Freq: Status: Active Protocol: SHANTA Activity Type Activity Date Activity User E-Sign Co-Sign Detail Recorded Client Recorded Date Recorded By Document 02/24/21 09:01 KR [id number] 02/24/21 09:07 KR 02/24/21 09:01 WC - Today's Visit Information Type of service Initial Visit Arrival Mode Ambulatory Patient Identification Verified (Name & Yes ) Patient Requires Transmission-Based No Precautions Height and Weight Body Mass Index (BMI) 31.4 BMI Classification Obese Vital Signs Temperature (97.8 F-99.1 F) 97.8 F Temperature Source Temporal Pulse Rate (60-100) 86 Pulse Location Monitor Blood Pressure (90/60-120/80) 139/76 H Blood Pressure Mean (mm Hg) 97 Source Monitor Position Semi-Fowlers Blood Pressure Location Left Arm History Since Last Visit- (Skip if this is Patient's initial visit) Have you changed medications since your No last visit? Any new allergies or adverse reactions No Had a fall/change in ADL's that may No increase risk of falls Signs or symptoms of abuse and/or No neglect since last visit Have you been in the hospital since your No last visit? Has dressing in place as prescribed Yes Has compression in place as prescribed Yes Has offloadiing in place as prescribed N/A Experienced any changes in pain level or No management Left Footwear Regular Shoe Right Footwear Regular Shoe Pain Scale: 0-10 Numeric Is Patient Pain Free? Yes - Nurse 2 - General Ulcer CM Notes Start: 01/27/21 09:08 Freq: Status: Active Protocol: Activity Type Activity Date Activity User E-Sign Co-Sign Detail Recorded Client Recorded Date Recorded By Document 02/24/21 09:26 MW [id number] 02/24/21 09:37 MW 02/24/21 09:26 Wound Center Nurse 2 #12 Medial Superior LLE -Time 09:28 -Correct Patient Yes -Type of Procedure Debridement -Clinical Debridement Subcutaneous -Tissue Removed Subcutaneous -Post Debridement (cm) - Length 1.9 -Post Debridement (cm) - Width 2.5 -Post Debridement (cm) - Depth 0.1 -Total Square (Post) (cm) 4.75 -Area of Debridement (cm) - Length 1.9 -Area of Debridement (cm) - Width 2.5 -Total Square (Area) (cm) 4.75 -Tunneling No -Undermining/Tunneling No -Circular Undermining No -Wound/Ulcer Outcome Not Healed -Ulcer Cleansing Rinsed/ Irrigated with Saline -Foul Odor after Cleansing No -Bioengineered Tissue No -Bleeding Controlled with Pressure -Offloading No -Treatment Response Procedure Tolerated Well -Debridement - Subq, 1st 20sq cm Yes -Debridement, SubQ, ea addt'l 20sq cm 1 or part thereof #11 Medial Inferior LLE -Time 09:28 -Correct Patient Yes -Correct Side, Site, Position Yes -Correct Procedure Yes -Procedure Performed Yes -Type of Procedure Debridement -Clinical Debridement Subcutaneous -Tissue Removed Subcutaneous -Post Debridement (cm) - Length 3.1 -Post Debridement (cm) - Width 3.6 -Post Debridement (cm) - Depth 0.2 -Total Square (Post) (cm) 11.16 -Area of Debridement (cm) - Length 3.1 -Area of Debridement (cm) - Width 3.6 -Total Square (Area) (cm) 11.16 -Tunneling No -Undermining/Tunneling No -Circular Undermining No -Wound/Ulcer Outcome Not Healed -Ulcer Cleansing Rinsed/ Irrigated with Saline -Foul Odor after Cleansing No -Bioengineered Tissue No -Bleeding Controlled with Pressure -Offloading No -Treatment Response Procedure Tolerated Well -Debridement - Subq, 1st 20sq cm No #10 Left Medial Ankle -Time 09:29 -Correct Patient Yes -Correct Side, Site, Position Yes -Correct Procedure Yes -Procedure Performed Yes -Type of Procedure Debridement -Clinical Debridement Subcutaneous -Tissue Removed Subcutaneous -Post Debridement (cm) - Length 7.0 -Post Debridement (cm) - Width 3.0 -Post Debridement (cm) - Depth 0.2 -Total Square (Post) (cm) 21.00 -Area of Debridement (cm) - Length 7.0 -Area of Debridement (cm) - Width 3.0 -Total Square (Area) (cm) 21.00 -Tunneling No -Undermining/Tunneling No -Circular Undermining No -Wound/Ulcer Outcome Not Healed -Ulcer Cleansing Rinsed/ Irrigated with Saline -Foul Odor after Cleansing No -Bioengineered Tissue No -Bleeding Controlled with Pressure -Offloading No -Treatment Response Procedure Tolerated Well -Debridement - Subq, 1st 20sq cm No Pain Scale: 0-10 Numeric Is Patient Pain Free? Yes #6 LEFT ANKLE- SUPERIOR: Post-Debridement Measurements/Treatment KIMBERLY - Nurse 1 - General Ulcer Assessment Start: 01/27/21 09:08 Freq: Status: Active Protocol: SHANTA Activity Type Activity Date Activity User E-Sign Co-Sign Detail Recorded Client Recorded Date Recorded By Document 02/24/21 09:01 REINA [id number] 02/24/21 09:07 REINA 02/24/21 09:01 - Today's Visit Information Type of service Initial Visit Arrival Mode Ambulatory Patient Identification Verified (Name & Yes ) Patient Requires Transmission-Based No Precautions Height and Weight Body Mass Index (BMI) 31.4 BMI Classification Obese Vital Signs Temperature (97.8 F-99.1 F) 97.8 F Temperature Source Temporal Pulse Rate (60-100) 86 Pulse Location Monitor Blood Pressure (90/60-120/80) 139/76 H Blood Pressure Mean (mm Hg) 97 Source Monitor Position Semi-Fowlers Blood Pressure Location Left Arm History Since Last Visit- (Skip if this is Patient's initial visit) Have you changed medications since your No last visit? Any new allergies or adverse reactions No Had a fall/change in ADL's that may No increase risk of falls Signs or symptoms of abuse and/or No neglect since last visit Have you been in the hospital since your No last visit? Has dressing in place as prescribed Yes Has compression in place as prescribed Yes Has offloadiing in place as prescribed N/A Experienced any changes in pain level or No management Left Footwear Regular Shoe Right Footwear Regular Shoe Pain Scale: 0-10 Numeric Is Patient Pain Free? Yes KIMBERLY - Nurse 2 - General Ulcer CM Notes Start: 01/27/21 09:08 Freq: Status: Active Protocol: Activity Type Activity Date Activity User E-Sign Co-Sign Detail Recorded Client Recorded Date Recorded By Document 02/24/21 09:26 MW [id number] 02/24/21 09:37 MW 02/24/21 09:26 Wound Center Nurse 2 #12 Medial Superior LLE -Time 09:28 -Correct Patient Yes -Type of Procedure Debridement -Clinical Debridement Subcutaneous -Tissue Removed Subcutaneous -Post Debridement (cm) - Length 1.9 -Post Debridement (cm) - Width 2.5 -Post Debridement (cm) - Depth 0.1 -Total Square (Post) (cm) 4.75 -Area of Debridement (cm) - Length 1.9 -Area of Debridement (cm) - Width 2.5 -Total Square (Area) (cm) 4.75 -Tunneling No -Undermining/Tunneling No -Circular Undermining No -Wound/Ulcer Outcome Not Healed -Ulcer Cleansing Rinsed/ Irrigated with Saline -Foul Odor after Cleansing No -Bioengineered Tissue No -Bleeding Controlled with Pressure -Offloading No -Treatment Response Procedure Tolerated Well -Debridement - Subq, 1st 20sq cm Yes -Debridement, SubQ, ea addt'l 20sq cm 1 or part thereof #11 Medial Inferior LLE -Time 09:28 -Correct Patient Yes -Correct Side, Site, Position Yes -Correct Procedure Yes -Procedure Performed Yes -Type of Procedure Debridement -Clinical Debridement Subcutaneous -Tissue Removed Subcutaneous -Post Debridement (cm) - Length 3.1 -Post Debridement (cm) - Width 3.6 -Post Debridement (cm) - Depth 0.2 -Total Square (Post) (cm) 11.16 -Area of Debridement (cm) - Length 3.1 -Area of Debridement (cm) - Width 3.6 -Total Square (Area) (cm) 11.16 -Tunneling No -Undermining/Tunneling No -Circular Undermining No -Wound/Ulcer Outcome Not Healed -Ulcer Cleansing Rinsed/ Irrigated with Saline -Foul Odor after Cleansing No -Bioengineered Tissue No -Bleeding Controlled with Pressure -Offloading No -Treatment Response Procedure Tolerated Well -Debridement - Subq, 1st 20sq cm No #10 Left Medial Ankle -Time 09:29 -Correct Patient Yes -Correct Side, Site, Position Yes -Correct Procedure Yes -Procedure Performed Yes -Type of Procedure Debridement -Clinical Debridement Subcutaneous -Tissue Removed Subcutaneous -Post Debridement (cm) - Length 7.0 -Post Debridement (cm) - Width 3.0 -Post Debridement (cm) - Depth 0.2 -Total Square (Post) (cm) 21.00 -Area of Debridement (cm) - Length 7.0 -Area of Debridement (cm) - Width 3.0 -Total Square (Area) (cm) 21.00 -Tunneling No -Undermining/Tunneling No -Circular Undermining No -Wound/Ulcer Outcome Not Healed -Ulcer Cleansing Rinsed/ Irrigated with Saline -Foul Odor after Cleansing No -Bioengineered Tissue No -Bleeding Controlled with Pressure -Offloading No -Treatment Response Procedure Tolerated Well -Debridement - Subq, 1st 20sq cm No Pain Scale: 0-10 Numeric Is Patient Pain Free? Yes #6 L Dorsal Cluster: Post-Debridement Measurements/Treatment - Nurse 1 - General Ulcer Assessment Start: 01/27/21 09:08 Freq: Status: Active Protocol: SHANTA Activity Type Activity Date Activity User E-Sign Co-Sign Detail Recorded Client Recorded Date Recorded By Document 02/24/21 09:01 REINA [id number] 02/24/21 09:07 REINA 02/24/21 09:01 - Today's Visit Information Type of service Initial Visit Arrival Mode Ambulatory Patient Identification Verified (Name & Yes ) Patient Requires Transmission-Based No Precautions Height and Weight Body Mass Index (BMI) 31.4 BMI Classification Obese Vital Signs Temperature (97.8 F-99.1 F) 97.8 F Temperature Source Temporal Pulse Rate (60-100) 86 Pulse Location Monitor Blood Pressure (90/60-120/80) 139/76 H Blood Pressure Mean (mm Hg) 97 Source Monitor Position Semi-Fowlers Blood Pressure Location Left Arm History Since Last Visit- (Skip if this is Patient's initial visit) Have you changed medications since your No last visit? Any new allergies or adverse reactions No Had a fall/change in ADL's that may No increase risk of falls Signs or symptoms of abuse and/or No neglect since last visit Have you been in the hospital since your No last visit? Has dressing in place as prescribed Yes Has compression in place as prescribed Yes Has offloadiing in place as prescribed N/A Experienced any changes in pain level or No management Left Footwear Regular Shoe Right Footwear Regular Shoe Pain Scale: 0-10 Numeric Is Patient Pain Free? Yes WC - Nurse 2 - General Ulcer CM Notes Start: 01/27/21 09:08 Freq: Status: Active Protocol: Activity Type Activity Date Activity User E-Sign Co-Sign Detail Recorded Client Recorded Date Recorded By Document 02/24/21 09:26 MW [id number] 02/24/21 09:37 MW 02/24/21 09:26 Wound Center Nurse 2 #12 Medial Superior LLE -Time 09:28 -Correct Patient Yes -Type of Procedure Debridement -Clinical Debridement Subcutaneous -Tissue Removed Subcutaneous -Post Debridement (cm) - Length 1.9 -Post Debridement (cm) - Width 2.5 -Post Debridement (cm) - Depth 0.1 -Total Square (Post) (cm) 4.75 -Area of Debridement (cm) - Length 1.9 -Area of Debridement (cm) - Width 2.5 -Total Square (Area) (cm) 4.75 -Tunneling No -Undermining/Tunneling No -Circular Undermining No -Wound/Ulcer Outcome Not Healed -Ulcer Cleansing Rinsed/ Irrigated with Saline -Foul Odor after Cleansing No -Bioengineered Tissue No -Bleeding Controlled with Pressure -Offloading No -Treatment Response Procedure Tolerated Well -Debridement - Subq, 1st 20sq cm Yes -Debridement, SubQ, ea addt'l 20sq cm 1 or part thereof #11 Medial Inferior LLE -Time 09:28 -Correct Patient Yes -Correct Side, Site, Position Yes -Correct Procedure Yes -Procedure Performed Yes -Type of Procedure Debridement -Clinical Debridement Subcutaneous -Tissue Removed Subcutaneous -Post Debridement (cm) - Length 3.1 -Post Debridement (cm) - Width 3.6 -Post Debridement (cm) - Depth 0.2 -Total Square (Post) (cm) 11.16 -Area of Debridement (cm) - Length 3.1 -Area of Debridement (cm) - Width 3.6 -Total Square (Area) (cm) 11.16 -Tunneling No -Undermining/Tunneling No -Circular Undermining No -Wound/Ulcer Outcome Not Healed -Ulcer Cleansing Rinsed/ Irrigated with Saline -Foul Odor after Cleansing No -Bioengineered Tissue No -Bleeding Controlled with Pressure -Offloading No -Treatment Response Procedure Tolerated Well -Debridement - Subq, 1st 20sq cm No #10 Left Medial Ankle -Time 09:29 -Correct Patient Yes -Correct Side, Site, Position Yes -Correct Procedure Yes -Procedure Performed Yes -Type of Procedure Debridement -Clinical Debridement Subcutaneous -Tissue Removed Subcutaneous -Post Debridement (cm) - Length 7.0 -Post Debridement (cm) - Width 3.0 -Post Debridement (cm) - Depth 0.2 -Total Square (Post) (cm) 21.00 -Area of Debridement (cm) - Length 7.0 -Area of Debridement (cm) - Width 3.0 -Total Square (Area) (cm) 21.00 -Tunneling No -Undermining/Tunneling No -Circular Undermining No -Wound/Ulcer Outcome Not Healed -Ulcer Cleansing Rinsed/ Irrigated with Saline -Foul Odor after Cleansing No -Bioengineered Tissue No -Bleeding Controlled with Pressure -Offloading No -Treatment Response Procedure Tolerated Well -Debridement - Subq, 1st 20sq cm No Pain Scale: 0-10 Numeric Is Patient Pain Free? Yes #7 left lower leg superior: Post-Debridement Measurements/Treatment - Nurse 1 - General Ulcer Assessment Start: 01/27/21 09:08 Freq: Status: Active Protocol: KIMBERLY.MEHDI Activity Type Activity Date Activity User E-Sign Co-Sign Detail Recorded Client Recorded Date Recorded By Document 02/24/21 09:01 REINA [id number] 02/24/21 09:07 REINA 02/24/21 09:01 - Today's Visit Information Type of service Initial Visit Arrival Mode Ambulatory Patient Identification Verified (Name & Yes ) Patient Requires Transmission-Based No Precautions Height and Weight Body Mass Index (BMI) 31.4 BMI Classification Obese Vital Signs Temperature (97.8 F-99.1 F) 97.8 F Temperature Source Temporal Pulse Rate (60-100) 86 Pulse Location Monitor Blood Pressure (90/60-120/80) 139/76 H Blood Pressure Mean (mm Hg) 97 Source Monitor Position Semi-Fowlers Blood Pressure Location Left Arm History Since Last Visit- (Skip if this is Patient's initial visit) Have you changed medications since your No last visit? Any new allergies or adverse reactions No Had a fall/change in ADL's that may No increase risk of falls Signs or symptoms of abuse and/or No neglect since last visit Have you been in the hospital since your No last visit? Has dressing in place as prescribed Yes Has compression in place as prescribed Yes Has offloadiing in place as prescribed N/A Experienced any changes in pain level or No management Left Footwear Regular Shoe Right Footwear Regular Shoe Pain Scale: 0-10 Numeric Is Patient Pain Free? Yes WC - Nurse 2 - General Ulcer CM Notes Start: 01/27/21 09:08 Freq: Status: Active Protocol: Activity Type Activity Date Activity User E-Sign Co-Sign Detail Recorded Client Recorded Date Recorded By Document 02/24/21 09:26 MW [id number] 02/24/21 09:37 MW 02/24/21 09:26 Wound Center Nurse 2 #12 Medial Superior LLE -Time 09:28 -Correct Patient Yes -Type of Procedure Debridement -Clinical Debridement Subcutaneous -Tissue Removed Subcutaneous -Post Debridement (cm) - Length 1.9 -Post Debridement (cm) - Width 2.5 -Post Debridement (cm) - Depth 0.1 -Total Square (Post) (cm) 4.75 -Area of Debridement (cm) - Length 1.9 -Area of Debridement (cm) - Width 2.5 -Total Square (Area) (cm) 4.75 -Tunneling No -Undermining/Tunneling No -Circular Undermining No -Wound/Ulcer Outcome Not Healed -Ulcer Cleansing Rinsed/ Irrigated with Saline -Foul Odor after Cleansing No -Bioengineered Tissue No -Bleeding Controlled with Pressure -Offloading No -Treatment Response Procedure Tolerated Well -Debridement - Subq, 1st 20sq cm Yes -Debridement, SubQ, ea addt'l 20sq cm 1 or part thereof #11 Medial Inferior LLE -Time 09:28 -Correct Patient Yes -Correct Side, Site, Position Yes -Correct Procedure Yes -Procedure Performed Yes -Type of Procedure Debridement -Clinical Debridement Subcutaneous -Tissue Removed Subcutaneous -Post Debridement (cm) - Length 3.1 -Post Debridement (cm) - Width 3.6 -Post Debridement (cm) - Depth 0.2 -Total Square (Post) (cm) 11.16 -Area of Debridement (cm) - Length 3.1 -Area of Debridement (cm) - Width 3.6 -Total Square (Area) (cm) 11.16 -Tunneling No -Undermining/Tunneling No -Circular Undermining No -Wound/Ulcer Outcome Not Healed -Ulcer Cleansing Rinsed/ Irrigated with Saline -Foul Odor after Cleansing No -Bioengineered Tissue No -Bleeding Controlled with Pressure -Offloading No -Treatment Response Procedure Tolerated Well -Debridement - Subq, 1st 20sq cm No #10 Left Medial Ankle -Time 09:29 -Correct Patient Yes -Correct Side, Site, Position Yes -Correct Procedure Yes -Procedure Performed Yes -Type of Procedure Debridement -Clinical Debridement Subcutaneous -Tissue Removed Subcutaneous -Post Debridement (cm) - Length 7.0 -Post Debridement (cm) - Width 3.0 -Post Debridement (cm) - Depth 0.2 -Total Square (Post) (cm) 21.00 -Area of Debridement (cm) - Length 7.0 -Area of Debridement (cm) - Width 3.0 -Total Square (Area) (cm) 21.00 -Tunneling No -Undermining/Tunneling No -Circular Undermining No -Wound/Ulcer Outcome Not Healed -Ulcer Cleansing Rinsed/ Irrigated with Saline -Foul Odor after Cleansing No -Bioengineered Tissue No -Bleeding Controlled with Pressure -Offloading No -Treatment Response Procedure Tolerated Well -Debridement - Subq, 1st 20sq cm No Pain Scale: 0-10 Numeric Is Patient Pain Free? Yes #8 left dorsal foot cluster: Post-Debridement Measurements/Treatment - Nurse 1 - General Ulcer Assessment Start: 01/27/21 09:08 Freq: Status: Active Protocol: SHANTA Activity Type Activity Date Activity User E-Sign Co-Sign Detail Recorded Client Recorded Date Recorded By Document 02/24/21 09:01 REINA [id number] 02/24/21 09:07 02/24/21 09:01 - Today's Visit Information Type of service Initial Visit Arrival Mode Ambulatory Patient Identification Verified (Name & Yes ) Patient Requires Transmission-Based No Precautions Height and Weight Body Mass Index (BMI) 31.4 BMI Classification Obese Vital Signs Temperature (97.8 F-99.1 F) 97.8 F Temperature Source Temporal Pulse Rate (60-100) 86 Pulse Location Monitor Blood Pressure (90/60-120/80) 139/76 H Blood Pressure Mean (mm Hg) 97 Source Monitor Position Semi-Fowlers Blood Pressure Location Left Arm History Since Last Visit- (Skip if this is Patient's initial visit) Have you changed medications since your No last visit? Any new allergies or adverse reactions No Had a fall/change in ADL's that may No increase risk of falls Signs or symptoms of abuse and/or No neglect since last visit Have you been in the hospital since your No last visit? Has dressing in place as prescribed Yes Has compression in place as prescribed Yes Has offloadiing in place as prescribed N/A Experienced any changes in pain level or No management Left Footwear Regular Shoe Right Footwear Regular Shoe Pain Scale: 0-10 Numeric Is Patient Pain Free? Yes WC - Nurse 2 - General Ulcer CM Notes Start: 01/27/21 09:08 Freq: Status: Active Protocol: Activity Type Activity Date Activity User E-Sign Co-Sign Detail Recorded Client Recorded Date Recorded By Document 02/24/21 09:26 MW [id number] 02/24/21 09:37 MW 02/24/21 09:26 Wound Center Nurse 2 #12 Medial Superior LLE -Time 09:28 -Correct Patient Yes -Type of Procedure Debridement -Clinical Debridement Subcutaneous -Tissue Removed Subcutaneous -Post Debridement (cm) - Length 1.9 -Post Debridement (cm) - Width 2.5 -Post Debridement (cm) - Depth 0.1 -Total Square (Post) (cm) 4.75 -Area of Debridement (cm) - Length 1.9 -Area of Debridement (cm) - Width 2.5 -Total Square (Area) (cm) 4.75 -Tunneling No -Undermining/Tunneling No -Circular Undermining No -Wound/Ulcer Outcome Not Healed -Ulcer Cleansing Rinsed/ Irrigated with Saline -Foul Odor after Cleansing No -Bioengineered Tissue No -Bleeding Controlled with Pressure -Offloading No -Treatment Response Procedure Tolerated Well -Debridement - Subq, 1st 20sq cm Yes -Debridement, SubQ, ea addt'l 20sq cm 1 or part thereof #11 Medial Inferior LLE -Time 09:28 -Correct Patient Yes -Correct Side, Site, Position Yes -Correct Procedure Yes -Procedure Performed Yes -Type of Procedure Debridement -Clinical Debridement Subcutaneous -Tissue Removed Subcutaneous -Post Debridement (cm) - Length 3.1 -Post Debridement (cm) - Width 3.6 -Post Debridement (cm) - Depth 0.2 -Total Square (Post) (cm) 11.16 -Area of Debridement (cm) - Length 3.1 -Area of Debridement (cm) - Width 3.6 -Total Square (Area) (cm) 11.16 -Tunneling No -Undermining/Tunneling No -Circular Undermining No -Wound/Ulcer Outcome Not Healed -Ulcer Cleansing Rinsed/ Irrigated with Saline -Foul Odor after Cleansing No -Bioengineered Tissue No -Bleeding Controlled with Pressure -Offloading No -Treatment Response Procedure Tolerated Well -Debridement - Subq, 1st 20sq cm No #10 Left Medial Ankle -Time 09:29 -Correct Patient Yes -Correct Side, Site, Position Yes -Correct Procedure Yes -Procedure Performed Yes -Type of Procedure Debridement -Clinical Debridement Subcutaneous -Tissue Removed Subcutaneous -Post Debridement (cm) - Length 7.0 -Post Debridement (cm) - Width 3.0 -Post Debridement (cm) - Depth 0.2 -Total Square (Post) (cm) 21.00 -Area of Debridement (cm) - Length 7.0 -Area of Debridement (cm) - Width 3.0 -Total Square (Area) (cm) 21.00 -Tunneling No -Undermining/Tunneling No -Circular Undermining No -Wound/Ulcer Outcome Not Healed -Ulcer Cleansing Rinsed/ Irrigated with Saline -Foul Odor after Cleansing No -Bioengineered Tissue No -Bleeding Controlled with Pressure -Offloading No -Treatment Response Procedure Tolerated Well -Debridement - Subq, 1st 20sq cm No Pain Scale: 0-10 Numeric Is Patient Pain Free? Yes #9- LLE WOUND CLUSTER: Post-Debridement Measurements/Treatment KIMBERLY - Nurse 1 - General Ulcer Assessment Start: 01/27/21 09:08 Freq: Status: Active Protocol: SHANTA Activity Type Activity Date Activity User E-Sign Co-Sign Detail Recorded Client Recorded Date Recorded By Document 02/24/21 09:01 REINA [id number] 02/24/21 09:07 REINA 02/24/21 09:01 - Today's Visit Information Type of service Initial Visit Arrival Mode Ambulatory Patient Identification Verified (Name & Yes ) Patient Requires Transmission-Based No Precautions Height and Weight Body Mass Index (BMI) 31.4 BMI Classification Obese Vital Signs Temperature (97.8 F-99.1 F) 97.8 F Temperature Source Temporal Pulse Rate (60-100) 86 Pulse Location Monitor Blood Pressure (90/60-120/80) 139/76 H Blood Pressure Mean (mm Hg) 97 Source Monitor Position Semi-Fowlers Blood Pressure Location Left Arm History Since Last Visit- (Skip if this is Patient's initial visit) Have you changed medications since your No last visit? Any new allergies or adverse reactions No Had a fall/change in ADL's that may No increase risk of falls Signs or symptoms of abuse and/or No neglect since last visit Have you been in the hospital since your No last visit? Has dressing in place as prescribed Yes Has compression in place as prescribed Yes Has offloadiing in place as prescribed N/A Experienced any changes in pain level or No management Left Footwear Regular Shoe Right Footwear Regular Shoe Pain Scale: 0-10 Numeric Is Patient Pain Free? Yes WC - Nurse 2 - General Ulcer CM Notes Start: 01/27/21 09:08 Freq: Status: Active Protocol: Activity Type Activity Date Activity User E-Sign Co-Sign Detail Recorded Client Recorded Date Recorded By Document 02/24/21 09:26 MW [id number] 02/24/21 09:37 MW 02/24/21 09:26 Wound Center Nurse 2 #12 Medial Superior LLE -Time 09:28 -Correct Patient Yes -Type of Procedure Debridement -Clinical Debridement Subcutaneous -Tissue Removed Subcutaneous -Post Debridement (cm) - Length 1.9 -Post Debridement (cm) - Width 2.5 -Post Debridement (cm) - Depth 0.1 -Total Square (Post) (cm) 4.75 -Area of Debridement (cm) - Length 1.9 -Area of Debridement (cm) - Width 2.5 -Total Square (Area) (cm) 4.75 -Tunneling No -Undermining/Tunneling No -Circular Undermining No -Wound/Ulcer Outcome Not Healed -Ulcer Cleansing Rinsed/ Irrigated with Saline -Foul Odor after Cleansing No -Bioengineered Tissue No -Bleeding Controlled with Pressure -Offloading No -Treatment Response Procedure Tolerated Well -Debridement - Subq, 1st 20sq cm Yes -Debridement, SubQ, ea addt'l 20sq cm 1 or part thereof #11 Medial Inferior LLE -Time 09:28 -Correct Patient Yes -Correct Side, Site, Position Yes -Correct Procedure Yes -Procedure Performed Yes -Type of Procedure Debridement -Clinical Debridement Subcutaneous -Tissue Removed Subcutaneous -Post Debridement (cm) - Length 3.1 -Post Debridement (cm) - Width 3.6 -Post Debridement (cm) - Depth 0.2 -Total Square (Post) (cm) 11.16 -Area of Debridement (cm) - Length 3.1 -Area of Debridement (cm) - Width 3.6 -Total Square (Area) (cm) 11.16 -Tunneling No -Undermining/Tunneling No -Circular Undermining No -Wound/Ulcer Outcome Not Healed -Ulcer Cleansing Rinsed/ Irrigated with Saline -Foul Odor after Cleansing No -Bioengineered Tissue No -Bleeding Controlled with Pressure -Offloading No -Treatment Response Procedure Tolerated Well -Debridement - Subq, 1st 20sq cm No #10 Left Medial Ankle -Time 09:29 -Correct Patient Yes -Correct Side, Site, Position Yes -Correct Procedure Yes -Procedure Performed Yes -Type of Procedure Debridement -Clinical Debridement Subcutaneous -Tissue Removed Subcutaneous -Post Debridement (cm) - Length 7.0 -Post Debridement (cm) - Width 3.0 -Post Debridement (cm) - Depth 0.2 -Total Square (Post) (cm) 21.00 -Area of Debridement (cm) - Length 7.0 -Area of Debridement (cm) - Width 3.0 -Total Square (Area) (cm) 21.00 -Tunneling No -Undermining/Tunneling No -Circular Undermining No -Wound/Ulcer Outcome Not Healed -Ulcer Cleansing Rinsed/ Irrigated with Saline -Foul Odor after Cleansing No -Bioengineered Tissue No -Bleeding Controlled with Pressure -Offloading No -Treatment Response Procedure Tolerated Well -Debridement - Subq, 1st 20sq cm No Pain Scale: 0-10 Numeric Is Patient Pain Free? Yes #10 Left Medial Ankle: Post-Debridement Measurements/Treatment - Nurse 1 - General Ulcer Assessment Start: 01/27/21 09:08 Freq: Status: Active Protocol: LOWEXPrince Activity Type Activity Date Activity User E-Sign Co-Sign Detail Recorded Client Recorded Date Recorded By Document 02/24/21 09:01 REINA [id number] 02/24/21 09:07 REINA 02/24/21 09:01 - Today's Visit Information Type of service Initial Visit Arrival Mode Ambulatory Patient Identification Verified (Name & Yes ) Patient Requires Transmission-Based No Precautions Height and Weight Body Mass Index (BMI) 31.4 BMI Classification Obese Vital Signs Temperature (97.8 F-99.1 F) 97.8 F Temperature Source Temporal Pulse Rate (60-100) 86 Pulse Location Monitor Blood Pressure (90/60-120/80) 139/76 H Blood Pressure Mean (mm Hg) 97 Source Monitor Position Semi-Fowlers Blood Pressure Location Left Arm History Since Last Visit- (Skip if this is Patient's initial visit) Have you changed medications since your No last visit? Any new allergies or adverse reactions No Had a fall/change in ADL's that may No increase risk of falls Signs or symptoms of abuse and/or No neglect since last visit Have you been in the hospital since your No last visit? Has dressing in place as prescribed Yes Has compression in place as prescribed Yes Has offloadiing in place as prescribed N/A Experienced any changes in pain level or No management Left Footwear Regular Shoe Right Footwear Regular Shoe Pain Scale: 0-10 Numeric Is Patient Pain Free? Yes WC - Nurse 2 - General Ulcer CM Notes Start: 01/27/21 09:08 Freq: Status: Active Protocol: Activity Type Activity Date Activity User E-Sign Co-Sign Detail Recorded Client Recorded Date Recorded By Document 02/24/21 09:26 MW [id number] 02/24/21 09:37 MW 02/24/21 09:26 Wound Center Nurse 2 #12 Medial Superior LLE -Time 09:28 -Correct Patient Yes -Type of Procedure Debridement -Clinical Debridement Subcutaneous -Tissue Removed Subcutaneous -Post Debridement (cm) - Length 1.9 -Post Debridement (cm) - Width 2.5 -Post Debridement (cm) - Depth 0.1 -Total Square (Post) (cm) 4.75 -Area of Debridement (cm) - Length 1.9 -Area of Debridement (cm) - Width 2.5 -Total Square (Area) (cm) 4.75 -Tunneling No -Undermining/Tunneling No -Circular Undermining No -Wound/Ulcer Outcome Not Healed -Ulcer Cleansing Rinsed/ Irrigated with Saline -Foul Odor after Cleansing No -Bioengineered Tissue No -Bleeding Controlled with Pressure -Offloading No -Treatment Response Procedure Tolerated Well -Debridement - Subq, 1st 20sq cm Yes -Debridement, SubQ, ea addt'l 20sq cm 1 or part thereof #11 Medial Inferior LLE -Time 09:28 -Correct Patient Yes -Correct Side, Site, Position Yes -Correct Procedure Yes -Procedure Performed Yes -Type of Procedure Debridement -Clinical Debridement Subcutaneous -Tissue Removed Subcutaneous -Post Debridement (cm) - Length 3.1 -Post Debridement (cm) - Width 3.6 -Post Debridement (cm) - Depth 0.2 -Total Square (Post) (cm) 11.16 -Area of Debridement (cm) - Length 3.1 -Area of Debridement (cm) - Width 3.6 -Total Square (Area) (cm) 11.16 -Tunneling No -Undermining/Tunneling No -Circular Undermining No -Wound/Ulcer Outcome Not Healed -Ulcer Cleansing Rinsed/ Irrigated with Saline -Foul Odor after Cleansing No -Bioengineered Tissue No -Bleeding Controlled with Pressure -Offloading No -Treatment Response Procedure Tolerated Well -Debridement - Subq, 1st 20sq cm No #10 Left Medial Ankle -Time 09:29 -Correct Patient Yes -Correct Side, Site, Position Yes -Correct Procedure Yes -Procedure Performed Yes -Type of Procedure Debridement -Clinical Debridement Subcutaneous -Tissue Removed Subcutaneous -Post Debridement (cm) - Length 7.0 -Post Debridement (cm) - Width 3.0 -Post Debridement (cm) - Depth 0.2 -Total Square (Post) (cm) 21.00 -Area of Debridement (cm) - Length 7.0 -Area of Debridement (cm) - Width 3.0 -Total Square (Area) (cm) 21.00 -Tunneling No -Undermining/Tunneling No -Circular Undermining No -Wound/Ulcer Outcome Not Healed -Ulcer Cleansing Rinsed/ Irrigated with Saline -Foul Odor after Cleansing No -Bioengineered Tissue No -Bleeding Controlled with Pressure -Offloading No -Treatment Response Procedure Tolerated Well -Debridement - Subq, 1st 20sq cm No Pain Scale: 0-10 Numeric Is Patient Pain Free? Yes Wound Debrided: Left Medial Ankle Type of Debridement: Excisional debridement Anesthesia Used: 4% Lidocaine Solution Depth: Down to and including healthy tissue Percentage of Wound Debrided: 100 Instrument Used: 5mm curette Tissue Removed: Slough and devitalized tissue Severity: Fat Layer Exposed Amt of Bleeding w/Debridement: Mild Bleeding Controlled with: Pressure Patient Tolerated Procedure: Patient tolerated procedure well #11 Medial Inferior LLE: Post-Debridement Measurements/Treatment KIMBERLY - Nurse 1 - General Ulcer Assessment Start: 01/27/21 09:08 Freq: Status: Active Protocol: [email or web address] Activity Type Activity Date Activity User E-Sign Co-Sign Detail Recorded Client Recorded Date Recorded By Document 02/24/21 09:01 KR [id number] 02/24/21 09:07 02/24/21 09:01 - Today's Visit Information Type of service Initial Visit Arrival Mode Ambulatory Patient Identification Verified (Name & Yes ) Patient Requires Transmission-Based No Precautions Height and Weight Body Mass Index (BMI) 31.4 BMI Classification Obese Vital Signs Temperature (97.8 F-99.1 F) 97.8 F Temperature Source Temporal Pulse Rate (60-100) 86 Pulse Location Monitor Blood Pressure (90/60-120/80) 139/76 H Blood Pressure Mean (mm Hg) 97 Source Monitor Position Semi-Fowlers Blood Pressure Location Left Arm History Since Last Visit- (Skip if this is Patient's initial visit) Have you changed medications since your No last visit? Any new allergies or adverse reactions No Had a fall/change in ADL's that may No increase risk of falls Signs or symptoms of abuse and/or No neglect since last visit Have you been in the hospital since your No last visit? Has dressing in place as prescribed Yes Has compression in place as prescribed Yes Has offloadiing in place as prescribed N/A Experienced any changes in pain level or No management Left Footwear Regular Shoe Right Footwear Regular Shoe Pain Scale: 0-10 Numeric Is Patient Pain Free? Yes - Nurse 2 - General Ulcer CM Notes Start: 01/27/21 09:08 Freq: Status: Active Protocol: Activity Type Activity Date Activity User E-Sign Co-Sign Detail Recorded Client Recorded Date Recorded By Document 02/24/21 09:26 MW [id number] 02/24/21 09:37 MW 02/24/21 09:26 Wound Center Nurse 2 #12 Medial Superior LLE -Time 09:28 -Correct Patient Yes -Type of Procedure Debridement -Clinical Debridement Subcutaneous -Tissue Removed Subcutaneous -Post Debridement (cm) - Length 1.9 -Post Debridement (cm) - Width 2.5 -Post Debridement (cm) - Depth 0.1 -Total Square (Post) (cm) 4.75 -Area of Debridement (cm) - Length 1.9 -Area of Debridement (cm) - Width 2.5 -Total Square (Area) (cm) 4.75 -Tunneling No -Undermining/Tunneling No -Circular Undermining No -Wound/Ulcer Outcome Not Healed -Ulcer Cleansing Rinsed/ Irrigated with Saline -Foul Odor after Cleansing No -Bioengineered Tissue No -Bleeding Controlled with Pressure -Offloading No -Treatment Response Procedure Tolerated Well -Debridement - Subq, 1st 20sq cm Yes -Debridement, SubQ, ea addt'l 20sq cm 1 or part thereof #11 Medial Inferior LLE -Time 09:28 -Correct Patient Yes -Correct Side, Site, Position Yes -Correct Procedure Yes -Procedure Performed Yes -Type of Procedure Debridement -Clinical Debridement Subcutaneous -Tissue Removed Subcutaneous -Post Debridement (cm) - Length 3.1 -Post Debridement (cm) - Width 3.6 -Post Debridement (cm) - Depth 0.2 -Total Square (Post) (cm) 11.16 -Area of Debridement (cm) - Length 3.1 -Area of Debridement (cm) - Width 3.6 -Total Square (Area) (cm) 11.16 -Tunneling No -Undermining/Tunneling No -Circular Undermining No -Wound/Ulcer Outcome Not Healed -Ulcer Cleansing Rinsed/ Irrigated with Saline -Foul Odor after Cleansing No -Bioengineered Tissue No -Bleeding Controlled with Pressure -Offloading No -Treatment Response Procedure Tolerated Well -Debridement - Subq, 1st 20sq cm No #10 Left Medial Ankle -Time 09:29 -Correct Patient Yes -Correct Side, Site, Position Yes -Correct Procedure Yes -Procedure Performed Yes -Type of Procedure Debridement -Clinical Debridement Subcutaneous -Tissue Removed Subcutaneous -Post Debridement (cm) - Length 7.0 -Post Debridement (cm) - Width 3.0 -Post Debridement (cm) - Depth 0.2 -Total Square (Post) (cm) 21.00 -Area of Debridement (cm) - Length 7.0 -Area of Debridement (cm) - Width 3.0 -Total Square (Area) (cm) 21.00 -Tunneling No -Undermining/Tunneling No -Circular Undermining No -Wound/Ulcer Outcome Not Healed -Ulcer Cleansing Rinsed/ Irrigated with Saline -Foul Odor after Cleansing No -Bioengineered Tissue No -Bleeding Controlled with Pressure -Offloading No -Treatment Response Procedure Tolerated Well -Debridement - Subq, 1st 20sq cm No Pain Scale: 0-10 Numeric Is Patient Pain Free? Yes Wound Debrided: Left lower extremity Inferior Type of Debridement: Excisional debridement Anesthesia Used: 4% Lidocaine Solution Depth: Down to and including healthy tissue Percentage of Wound Debrided: 100 Instrument Used: 5mm curette Tissue Removed: Slough and devitalized tissue Severity: Fat Layer Exposed Amt of Bleeding w/Debridement: Mild Bleeding Controlled with: Pressure Patient Tolerated Procedure: Patient tolerated procedure well #12 Medial Superior LLE: Post-Debridement Measurements/Treatment - Nurse 1 - General Ulcer Assessment Start: 01/27/21 09:08 Freq: Status: Active Protocol: SHANTA Activity Type Activity Date Activity User E-Sign Co-Sign Detail Recorded Client Recorded Date Recorded By Document 02/24/21 09:01 KR [id number] 02/24/21 09:07 KR 02/24/21 09:01 KIMBERLY - Today's Visit Information Type of service Initial Visit Arrival Mode Ambulatory Patient Identification Verified (Name & Yes ) Patient Requires Transmission-Based No Precautions Height and Weight Body Mass Index (BMI) 31.4 BMI Classification Obese Vital Signs Temperature (97.8 F-99.1 F) 97.8 F Temperature Source Temporal Pulse Rate (60-100) 86 Pulse Location Monitor Blood Pressure (90/60-120/80) 139/76 H Blood Pressure Mean (mm Hg) 97 Source Monitor Position Semi-Fowlers Blood Pressure Location Left Arm History Since Last Visit- (Skip if this is Patient's initial visit) Have you changed medications since your No last visit? Any new allergies or adverse reactions No Had a fall/change in ADL's that may No increase risk of falls Signs or symptoms of abuse and/or No neglect since last visit Have you been in the hospital since your No last visit? Has dressing in place as prescribed Yes Has compression in place as prescribed Yes Has offloadiing in place as prescribed N/A Experienced any changes in pain level or No management Left Footwear Regular Shoe Right Footwear Regular Shoe Pain Scale: 0-10 Numeric Is Patient Pain Free? Yes - Nurse 2 - General Ulcer CM Notes Start: 01/27/21 09:08 Freq: Status: Active Protocol: Activity Type Activity Date Activity User E-Sign Co-Sign Detail Recorded Client Recorded Date Recorded By Document 02/24/21 09:26 MW [id number] 02/24/21 09:37 MW 02/24/21 09:26 Wound Center Nurse 2 #12 Medial Superior LLE -Time 09:28 -Correct Patient Yes -Type of Procedure Debridement -Clinical Debridement Subcutaneous -Tissue Removed Subcutaneous -Post Debridement (cm) - Length 1.9 -Post Debridement (cm) - Width 2.5 -Post Debridement (cm) - Depth 0.1 -Total Square (Post) (cm) 4.75 -Area of Debridement (cm) - Length 1.9 -Area of Debridement (cm) - Width 2.5 -Total Square (Area) (cm) 4.75 -Tunneling No -Undermining/Tunneling No -Circular Undermining No -Wound/Ulcer Outcome Not Healed -Ulcer Cleansing Rinsed/ Irrigated with Saline -Foul Odor after Cleansing No -Bioengineered Tissue No -Bleeding Controlled with Pressure -Offloading No -Treatment Response Procedure Tolerated Well -Debridement - Subq, 1st 20sq cm Yes -Debridement, SubQ, ea addt'l 20sq cm 1 or part thereof #11 Medial Inferior LLE -Time 09:28 -Correct Patient Yes -Correct Side, Site, Position Yes -Correct Procedure Yes -Procedure Performed Yes -Type of Procedure Debridement -Clinical Debridement Subcutaneous -Tissue Removed Subcutaneous -Post Debridement (cm) - Length 3.1 -Post Debridement (cm) - Width 3.6 -Post Debridement (cm) - Depth 0.2 -Total Square (Post) (cm) 11.16 -Area of Debridement (cm) - Length 3.1 -Area of Debridement (cm) - Width 3.6 -Total Square (Area) (cm) 11.16 -Tunneling No -Undermining/Tunneling No -Circular Undermining No -Wound/Ulcer Outcome Not Healed -Ulcer Cleansing Rinsed/ Irrigated with Saline -Foul Odor after Cleansing No -Bioengineered Tissue No -Bleeding Controlled with Pressure -Offloading No -Treatment Response Procedure Tolerated Well -Debridement - Subq, 1st 20sq cm No #10 Left Medial Ankle -Time 09:29 -Correct Patient Yes -Correct Side, Site, Position Yes -Correct Procedure Yes -Procedure Performed Yes -Type of Procedure Debridement -Clinical Debridement Subcutaneous -Tissue Removed Subcutaneous -Post Debridement (cm) - Length 7.0 -Post Debridement (cm) - Width 3.0 -Post Debridement (cm) - Depth 0.2 -Total Square (Post) (cm) 21.00 -Area of Debridement (cm) - Length 7.0 -Area of Debridement (cm) - Width 3.0 -Total Square (Area) (cm) 21.00 -Tunneling No -Undermining/Tunneling No -Circular Undermining No -Wound/Ulcer Outcome Not Healed -Ulcer Cleansing Rinsed/ Irrigated with Saline -Foul Odor after Cleansing No -Bioengineered Tissue No -Bleeding Controlled with Pressure -Offloading No -Treatment Response Procedure Tolerated Well -Debridement - Subq, 1st 20sq cm No Pain Scale: 0-10 Numeric Is Patient Pain Free? Yes Wound Debrided: Left lower extremity ( superior ) Type of Debridement: Excisional debridement Anesthesia Used: 4% Lidocaine Solution Depth: Down to and including healthy tissue and in the subcutaneous layer Percentage of Wound Debrided: 100 Instrument Used: 5mm curette Tissue Removed: Slough and devitalized tissue Severity: Fat Layer Exposed Amt of Bleeding w/Debridement: Mild Bleeding Controlled with: Pressure Patient Tolerated Procedure: Patient tolerated procedure well #13 L Med Dorsal foot: Post-Debridement Measurements/Treatment - Nurse 1 - General Ulcer Assessment Start: 01/27/21 09:08 Freq: Status: Active Protocol: [email or web address] Activity Type Activity Date Activity User E-Sign Co-Sign Detail Recorded Client Recorded Date Recorded By Document 02/24/21 09:01 REINA [id number] 02/24/21 09:07 REINA 02/24/21 09:01 - Today's Visit Information Type of service Initial Visit Arrival Mode Ambulatory Patient Identification Verified (Name & Yes ) Patient Requires Transmission-Based No Precautions Height and Weight Body Mass Index (BMI) 31.4 BMI Classification Obese Vital Signs Temperature (97.8 F-99.1 F) 97.8 F Temperature Source Temporal Pulse Rate (60-100) 86 Pulse Location Monitor Blood Pressure (90/60-120/80) 139/76 H Blood Pressure Mean (mm Hg) 97 Source Monitor Position Semi-Fowlers Blood Pressure Location Left Arm History Since Last Visit- (Skip if this is Patient's initial visit) Have you changed medications since your No last visit? Any new allergies or adverse reactions No Had a fall/change in ADL's that may No increase risk of falls Signs or symptoms of abuse and/or No neglect since last visit Have you been in the hospital since your No last visit? Has dressing in place as prescribed Yes Has compression in place as prescribed Yes Has offloadiing in place as prescribed N/A Experienced any changes in pain level or No management Left Footwear Regular Shoe Right Footwear Regular Shoe Pain Scale: 0-10 Numeric Is Patient Pain Free? Yes WC - Nurse 2 - General Ulcer CM Notes Start: 01/27/21 09:08 Freq: Status: Active Protocol: Activity Type Activity Date Activity User E-Sign Co-Sign Detail Recorded Client Recorded Date Recorded By Document 02/24/21 09:26 MW [id number] 02/24/21 09:37 MW 02/24/21 09:26 Wound Center Nurse 2 #12 Medial Superior LLE -Time 09:28 -Correct Patient Yes -Type of Procedure Debridement -Clinical Debridement Subcutaneous -Tissue Removed Subcutaneous -Post Debridement (cm) - Length 1.9 -Post Debridement (cm) - Width 2.5 -Post Debridement (cm) - Depth 0.1 -Total Square (Post) (cm) 4.75 -Area of Debridement (cm) - Length 1.9 -Area of Debridement (cm) - Width 2.5 -Total Square (Area) (cm) 4.75 -Tunneling No -Undermining/Tunneling No -Circular Undermining No -Wound/Ulcer Outcome Not Healed -Ulcer Cleansing Rinsed/ Irrigated with Saline -Foul Odor after Cleansing No -Bioengineered Tissue No -Bleeding Controlled with Pressure -Offloading No -Treatment Response Procedure Tolerated Well -Debridement - Subq, 1st 20sq cm Yes -Debridement, SubQ, ea addt'l 20sq cm 1 or part thereof #11 Medial Inferior LLE -Time 09:28 -Correct Patient Yes -Correct Side, Site, Position Yes -Correct Procedure Yes -Procedure Performed Yes -Type of Procedure Debridement -Clinical Debridement Subcutaneous -Tissue Removed Subcutaneous -Post Debridement (cm) - Length 3.1 -Post Debridement (cm) - Width 3.6 -Post Debridement (cm) - Depth 0.2 -Total Square (Post) (cm) 11.16 -Area of Debridement (cm) - Length 3.1 -Area of Debridement (cm) - Width 3.6 -Total Square (Area) (cm) 11.16 -Tunneling No -Undermining/Tunneling No -Circular Undermining No -Wound/Ulcer Outcome Not Healed -Ulcer Cleansing Rinsed/ Irrigated with Saline -Foul Odor after Cleansing No -Bioengineered Tissue No -Bleeding Controlled with Pressure -Offloading No -Treatment Response Procedure Tolerated Well -Debridement - Subq, 1st 20sq cm No #10 Left Medial Ankle -Time 09:29 -Correct Patient Yes -Correct Side, Site, Position Yes -Correct Procedure Yes -Procedure Performed Yes -Type of Procedure Debridement -Clinical Debridement Subcutaneous -Tissue Removed Subcutaneous -Post Debridement (cm) - Length 7.0 -Post Debridement (cm) - Width 3.0 -Post Debridement (cm) - Depth 0.2 -Total Square (Post) (cm) 21.00 -Area of Debridement (cm) - Length 7.0 -Area of Debridement (cm) - Width 3.0 -Total Square (Area) (cm) 21.00 -Tunneling No -Undermining/Tunneling No -Circular Undermining No -Wound/Ulcer Outcome Not Healed -Ulcer Cleansing Rinsed/ Irrigated with Saline -Foul Odor after Cleansing No -Bioengineered Tissue No -Bleeding Controlled with Pressure -Offloading No -Treatment Response Procedure Tolerated Well -Debridement - Subq, 1st 20sq cm No Pain Scale: 0-10 Numeric Is Patient Pain Free? Yes #14 LEFT DORSAL FOOT: Post-Debridement Measurements/Treatment - Nurse 1 - General Ulcer Assessment Start: 01/27/21 09:08 Freq: Status: Active Protocol: SAHNTA Activity Type Activity Date Activity User E-Sign Co-Sign Detail Recorded Client Recorded Date Recorded By Document 02/24/21 09:01 REINA [id number] 02/24/21 09:07 REINA 02/24/21 09:01 - Today's Visit Information Type of service Initial Visit Arrival Mode Ambulatory Patient Identification Verified (Name & Yes ) Patient Requires Transmission-Based No Precautions Height and Weight Body Mass Index (BMI) 31.4 BMI Classification Obese Vital Signs Temperature (97.8 F-99.1 F) 97.8 F Temperature Source Temporal Pulse Rate (60-100) 86 Pulse Location Monitor Blood Pressure (90/60-120/80) 139/76 H Blood Pressure Mean (mm Hg) 97 Source Monitor Position Semi-Fowlers Blood Pressure Location Left Arm History Since Last Visit- (Skip if this is Patient's initial visit) Have you changed medications since your No last visit? Any new allergies or adverse reactions No Had a fall/change in ADL's that may No increase risk of falls Signs or symptoms of abuse and/or No neglect since last visit Have you been in the hospital since your No last visit? Has dressing in place as prescribed Yes Has compression in place as prescribed Yes Has offloadiing in place as prescribed N/A Experienced any changes in pain level or No management Left Footwear Regular Shoe Right Footwear Regular Shoe Pain Scale: 0-10 Numeric Is Patient Pain Free? Yes WC - Nurse 2 - General Ulcer CM Notes Start: 01/27/21 09:08 Freq: Status: Active Protocol: Activity Type Activity Date Activity User E-Sign Co-Sign Detail Recorded Client Recorded Date Recorded By Document 02/24/21 09:26 MW [id number] 02/24/21 09:37 MW 02/24/21 09:26 Wound Center Nurse 2 #12 Medial Superior LLE -Time 09:28 -Correct Patient Yes -Type of Procedure Debridement -Clinical Debridement Subcutaneous -Tissue Removed Subcutaneous -Post Debridement (cm) - Length 1.9 -Post Debridement (cm) - Width 2.5 -Post Debridement (cm) - Depth 0.1 -Total Square (Post) (cm) 4.75 -Area of Debridement (cm) - Length 1.9 -Area of Debridement (cm) - Width 2.5 -Total Square (Area) (cm) 4.75 -Tunneling No -Undermining/Tunneling No -Circular Undermining No -Wound/Ulcer Outcome Not Healed -Ulcer Cleansing Rinsed/ Irrigated with Saline -Foul Odor after Cleansing No -Bioengineered Tissue No -Bleeding Controlled with Pressure -Offloading No -Treatment Response Procedure Tolerated Well -Debridement - Subq, 1st 20sq cm Yes -Debridement, SubQ, ea addt'l 20sq cm 1 or part thereof #11 Medial Inferior LLE -Time 09:28 -Correct Patient Yes -Correct Side, Site, Position Yes -Correct Procedure Yes -Procedure Performed Yes -Type of Procedure Debridement -Clinical Debridement Subcutaneous -Tissue Removed Subcutaneous -Post Debridement (cm) - Length 3.1 -Post Debridement (cm) - Width 3.6 -Post Debridement (cm) - Depth 0.2 -Total Square (Post) (cm) 11.16 -Area of Debridement (cm) - Length 3.1 -Area of Debridement (cm) - Width 3.6 -Total Square (Area) (cm) 11.16 -Tunneling No -Undermining/Tunneling No -Circular Undermining No -Wound/Ulcer Outcome Not Healed -Ulcer Cleansing Rinsed/ Irrigated with Saline -Foul Odor after Cleansing No -Bioengineered Tissue No -Bleeding Controlled with Pressure -Offloading No -Treatment Response Procedure Tolerated Well -Debridement - Subq, 1st 20sq cm No #10 Left Medial Ankle -Time 09:29 -Correct Patient Yes -Correct Side, Site, Position Yes -Correct Procedure Yes -Procedure Performed Yes -Type of Procedure Debridement -Clinical Debridement Subcutaneous -Tissue Removed Subcutaneous -Post Debridement (cm) - Length 7.0 -Post Debridement (cm) - Width 3.0 -Post Debridement (cm) - Depth 0.2 -Total Square (Post) (cm) 21.00 -Area of Debridement (cm) - Length 7.0 -Area of Debridement (cm) - Width 3.0 -Total Square (Area) (cm) 21.00 -Tunneling No -Undermining/Tunneling No -Circular Undermining No -Wound/Ulcer Outcome Not Healed -Ulcer Cleansing Rinsed/ Irrigated with Saline -Foul Odor after Cleansing No -Bioengineered Tissue No -Bleeding Controlled with Pressure -Offloading No -Treatment Response Procedure Tolerated Well -Debridement - Subq, 1st 20sq cm No Pain Scale: 0-10 Numeric Is Patient Pain Free? 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 Left lower extremity superior ulcers with fat layer exposed with delayed wound healing. New concern for infection with purulent drainage from just beneath the left medial ankle which is now clustered. Debridement done as documented above, procedure was well-tolerated. Cultures taken from the left medial ankle. Empirically started on clindamycin which he had done well on in the past. He was strongly advised to use probiotics as well. Continue Aquacel Ag and Keramax care. Change daily to twice daily depending on drainage. Continue use of compression stockings, leg elevation and exercise. Increased protein intake , protein supplements, zinc and vitamin C also recommended. His questions were answered and he was advised to call with any further questions or concerns. Follow up in 1 week. (2) PVD (peripheral vascular disease): Status: Chronic Code(s): I73.9 - Peripheral vascular disease, unspecified Plan: Plan as above (3) Chronic venous insufficiency: Status: Chronic Code(s): I87.2 - Venous insufficiency (chronic) (peripheral) Plan: Plan as above (4) Delayed wound healing: Status: Chronic Code(s): T14.8XXD - Other injury of unspecified body region, subsequent encounter Plan: Plan as above (5) Chronic venous insufficiency: Status: Chronic Plan: Plan as above This note was generated with [employer]ens[employer]ore[employer] software. It may contain incorrect words, spelling, and punctuation that were not noted in checking the note before signing. Charges/Coding [id number]: [id number] Lakeisha subq tissue 20 sq cm/< Add On Codes: [id number] Lakeisha subq tissue add-on
== END 2021-02-25 23:59 ==
LOC: WC 09:00
PROVIDERS: Visit Provider Internal Medicine
DX: I73.9 Peripheral vascular disease, unspecified (principal); I87.2 Venous insufficiency (chronic) (peripheral); L97.822 Non-pressure chronic ulcer of other part of left lower leg with fat layer exposed; M79.606 Pain in leg, unspecified; L97.322 Non-pressure chronic ulcer of left ankle with fat layer exposed; R60.0 Localized edema
CPT/HCPCS: 11042; 11045; 87070; 87075; 87077; 87186; 87205

== ENCOUNTER 2021-03-17 09:00 | Outpatient (RCR) | payer BC, SELFPAY ==
[2021-02-26 00:31] VITALS: BP 139/76; PULSE 86; RESP 18; TEMP 36.6
[2021-03-03 09:03] VITALS: BP 157/85; PULSE 80; RESP 16; TEMP 36.1; BMI 31.4
--- NOTE | 2021-03-03 12:37 | PN.PCM_ITS ---
History of Present Illness Date of Service: 03/03/21 Chief Complaint: ulcers to the left lower leg History of Wound: This is a 54-year-old male presents to wound healing center with a long-standing history of chronic venous insufficiency, chronic venous hypertension, lower extremity edema, lower extremity pain, and chronic left lower extremity ulcer. The patient has previously undergone endovenous laser ablation of the left and right great saphenous vein, the small saphenous vein, the left accessory saphenous vein, and an incompetent left calf applications support analyst vein located 15 cm proximal to the left medial malleolus. He is currently wearing graduated compression stockings which are documented to be 20-30 mmHg compression and these are thigh high. He reports great compliance with use. He is also had previous arterial work-up with no intervention recommended by letter, his vascular surgeon. He denies taking nutritional supplementation. He saw dermatology and had a biopsy of the ulcer site. He also was previously treated by infectious disease for various contaminations and infections. He is not antibiotics at this time nor does he have any redness or odor coming from the wound. He denies fever, chill, nausea, vomiting, loss of appetite. Subjective Subjective: Doing better today. Pain and drainage have improved. Has taken 7 days of clindamycin. Objective Data Objective Data Vital Signs: Vital Signs Temp Pulse Resp BP 97.0 F L 80 16 157/85 H 03/03/21 09:03 03/03/21 09:03 03/03/21 09:03 03/03/21 09:03 Oxygen Delivery Method Room Air Body Mass Index (BMI) 31.4 Assessment & Plan Assessment/Plan (1) Ulcer of left lower extremity with fat layer exposed: (2) PVD (peripheral vascular disease): (3) Chronic venous insufficiency: (4) Delayed wound healing: PLAN: Some improvement noted, not as tender and no significant purulent drainage noted today. Debridement done as documented above, procedure was well-tolerated. Started on metronidazole per culture and sensitivity for anaerobic coverage. Has tolerated clindamycin well. Continue Aquacel Ag and Keramax care. Change daily to twice daily depending on drainage. Continue use of compression stockings, leg elevation and exercise. Increased protein intake , protein supplements, zinc and vitamin C also recommended. His questions were answered and he was advised to call with any further questions or concerns. Follow up in 2 weeks. This note was generated with Dragon dictation software. It may contain incorrect words, spelling, and punctuation that were not noted in checking the note before signing. Charges/Coding Procedures Integumentary [id number]: [id number] [place] subq tissue 20 sq cm/< Physical Exam Const alert, oriented x3 and no apparent distress General Appearance: cooperative and comfortable Orientation / Consciousness: awake HEENT normocephalic Head and Scalp: normal to inspection, normocephalic and atraumatic Face and Sinus: normal facial exam Eyes EOMs intact bilaterally Neck full ROM and supple General: normal visual inspection Resp normal respiratory effort Effort and Inspection: able to speak in complete sentences GI non-tender Extremity normal to inspection General Extremity: edema Skin Wounds: wounds noted Wound Narrative: Purulent drainage from left medial ankle ulcer Neuro oriented x3 and CN's II-XII intact bilaterally Psych mental status grossly normal Appearance: grossly normal Debridement Note Debridement Note Post-Debridement Measurements and Additional Note: Post-Debridement Measurements/Treatment - Nurse 1 - General Ulcer Assessment Start: 03/03/21 09:03 Freq: Status: Active Protocol: SHANTA Activity Type Activity Date Activity User E-Sign Co-Sign Detail Recorded Client Recorded Date Recorded By Document 03/03/21 09:03 CA [id number] 03/03/21 09:12 CA 03/03/21 09:03 - Today's Visit Information Type of service Follow-up Visit (Physician/CERTIFIED PROSTHETIST VICE PRESIDENT ) Arrival Mode Ambulatory Patient Identification Verified (Name & Yes ) Height and Weight Body Mass Index (BMI) 31.4 BMI Classification Obese Vital Signs Temperature (97.8 F-99.1 F) 97.0 F L Temperature Source Temporal Pulse Rate (60-100) 80 Pulse Location Monitor Respiratory Rate (12-18) 16 Respiratory rate source Observation Oxygen Delivery Method Room Air Blood Pressure (90/60-120/80) 157/85 H Blood Pressure Mean (mm Hg) 109 Source Monitor Position Sitting Blood Pressure Location Left Arm History Since Last Visit- (Skip if this is Patient's initial visit) Have you changed medications since your No last visit? Any new allergies or adverse reactions No Have you been in the hospital since your No last visit? Has dressing in place as prescribed Yes Has compression in place as prescribed Yes Has offloadiing in place as prescribed N/A Experienced any changes in pain level or No management Left Footwear Regular Shoe Right Footwear Regular Shoe WC - Nurse 1 - General Ulcer Measurement Start: 03/03/21 09:03 Freq: Status: Active Protocol: Activity Type Activity Date Activity User E-Sign Co-Sign Detail Recorded Client Recorded Date Recorded By Document 03/03/21 09:03 CA [id number] 03/03/21 09:12 CA 03/03/21 09:03 Wound Center Nurse 1 #12 Medial Superior LLE -Current Size (cm) - Length 2.2 -Current Size (cm) - Width 2.5 -Current Size (cm) - Depth 0.1 -Total Square Cm 5.50 -Exudate Amt Small -Exudate Type Serosanguineous -Wound Margin Flat & Intact -Granulation Amt Large (67-100%) -Granulation Quality Pale,[place] -Slough/Fibrin No -Texture (Ara-wound Skin Appearance) Assessed -Moisture (Ara-wound Skin Appearance) Assessed -Color (Ara-wound Skin Appearance) Assessed -Temperature (Ara-wound Skin No Abnormality Appearance) (Pt Warm) -Tenderness on Palpation (Ara-wound No Skin Appearance) -Ulcer Cleansing Rinsed/ Irrigated with Saline -Foul Odor after Cleansing No -Anesthetic Used 4% Lidocaine Solution #11 Medial Inferior LLE -Current Size (cm) - Length 5.5 -Current Size (cm) - Width 4.0 -Current Size (cm) - Depth 0.1 -Total Square Cm 22.00 -Exudate Amt Small -Exudate Type Serosanguineous -Wound Margin Flat & Intact -Granulation Amt Medium (34-66%) -Granulation Quality Pale,[place] -Slough/Fibrin No -Necrosis Amt Medium (34-66%) -Necrotic Tissue Type Adherent Slough -Texture (Ara-wound Skin Appearance) Assessed -Moisture (Ara-wound Skin Appearance) Assessed -Color (Raa-wound Skin Appearance) Assessed -Temperature (Ara-wound Skin No Abnormality Appearance) (Pt Warm) -Tenderness on Palpation (Ara-wound No Skin Appearance) -Ulcer Cleansing Rinsed/ Irrigated with Saline -Foul Odor after Cleansing No -Anesthetic Used 4% Lidocaine Solution #10 Left Medial Ankle -Current Size (cm) - Length 5 -Current Size (cm) - Width 3.1 -Current Size (cm) - Depth 0.1 -Total Square Cm 15.5 -Exudate Amt Small -Exudate Type Serosanguineous -Wound Margin Flat & Intact -Granulation Amt Small (1-33%) -Granulation Quality Pale,[place] -Necrosis Amt Large (67-100%) -Necrotic Tissue Type Adherent Slough -Texture (Ara-wound Skin Appearance) Assessed -Moisture (Ara-wound Skin Appearance) Assessed -Color (Ara-wound Skin Appearance) Assessed -Temperature (Ara-wound Skin No Abnormality Appearance) (Pt Warm) -Tenderness on Palpation (Ara-wound No Skin Appearance) -Ulcer Cleansing Rinsed/ Irrigated with Saline -Foul Odor after Cleansing No -Anesthetic Used 4% Lidocaine Solution Left Calf (cm) 34 Left Ankle (cm) 23 WC - Nurse 2 - General Ulcer CM Notes Start: 03/03/21 09:03 Freq: Status: Active Protocol: Activity Type Activity Date Activity User E-Sign Co-Sign Detail Recorded Client Recorded Date Recorded By Document 03/03/21 09:49 MW [id number] 03/03/21 09:57 MW 03/03/21 09:49 Wound Center Nurse 2 #12 Medial Superior LLE -Time 09:49 -Correct Patient Yes -Correct Side, Site, Position Yes -Correct Procedure Yes -Procedure Performed Yes -Type of Procedure Debridement -Clinical Debridement Subcutaneous -Tissue Removed Subcutaneous -Post Debridement (cm) - Length 2.3 -Post Debridement (cm) - Width 2.5 -Post Debridement (cm) - Depth 0.1 -Total Square (Post) (cm) 5.75 -Area of Debridement (cm) - Length 2.3 -Area of Debridement (cm) - Width 2.5 -Total Square (Area) (cm) 5.75 -Tunneling No -Undermining/Tunneling No -Circular Undermining No -Wound/Ulcer Outcome Not Healed -Ulcer Cleansing Rinsed/ Irrigated with Saline -Foul Odor after Cleansing No -Bioengineered Tissue No -Bleeding Controlled with Pressure -Offloading No -Treatment Response Procedure Tolerated Well -Debridement - Subq, 1st 20sq cm Yes -Debridement, SubQ, ea addt'l 20sq cm 1 or part thereof #11 Medial Inferior LLE -Time 09:50 -Correct Patient Yes -Correct Side, Site, Position Yes -Correct Procedure Yes -Procedure Performed Yes -Type of Procedure Debridement -Clinical Debridement Subcutaneous -Tissue Removed Dermis -Post Debridement (cm) - Length 3.5 -Post Debridement (cm) - Width 3.5 -Post Debridement (cm) - Depth 0.2 -Total Square (Post) (cm) 12.25 -Area of Debridement (cm) - Length 3.5 -Area of Debridement (cm) - Width 3.5 -Total Square (Area) (cm) 12.25 -Tunneling No -Undermining/Tunneling No -Circular Undermining No -Wound/Ulcer Outcome Not Healed -Ulcer Cleansing Rinsed/ Irrigated with Saline -Foul Odor after Cleansing No -Bioengineered Tissue No -Bleeding Controlled with Pressure -Offloading No -Treatment Response Procedure Tolerated Well -Debridement - Subq, 1st 20sq cm No #10 Left Medial Ankle -Time 09:50 -Correct Patient Yes -Correct Side, Site, Position Yes -Correct Procedure Yes -Procedure Performed Yes -Type of Procedure Debridement -Clinical Debridement Subcutaneous -Tissue Removed Subcutaneous -Post Debridement (cm) - Length 3.0 -Post Debridement (cm) - Width 3.1 -Post Debridement (cm) - Depth 0.2 -Total Square (Post) (cm) 9.30 -Area of Debridement (cm) - Length 3.0 -Area of Debridement (cm) - Width 3.1 -Total Square (Area) (cm) 9.30 -Tunneling No -Undermining/Tunneling No -Circular Undermining No -Wound/Ulcer Outcome Not Healed -Ulcer Cleansing Rinsed/ Irrigated with Saline -Foul Odor after Cleansing No -Bioengineered Tissue No -Bleeding Controlled with Pressure -Offloading No -Treatment Response Procedure Tolerated Well -Debridement - Subq, 1st 20sq cm No Pain Scale: 0-10 Numeric Is Patient Pain Free? Yes - Nurse 3 - General Ulcer D/C NN Start: 03/03/21 09:03 Freq: Status: Active Protocol: Activity Type Activity Date Activity User E-Sign Co-Sign Detail Recorded Client Recorded Date Recorded By Document 03/03/21 10:09 CA [id number] 03/03/21 10:12 CA 03/03/21 10:09 Wound Care Nurse 3 #12 Medial Superior LLE -Other Dressing AG pt brought -Primary Dressing Covered/Secured with Dry Gauze, Secured with Tape WC - Visit Discharge Discharge Condition Stable Ambulatory Status Ambulatory Transportation Private Auto Medication Reconcilliation completed & No provided to patient/care provider Clinical Summary of Care Provided Yes Wound debrided: Left lower extremity medial ankle Type of Debridement: Excisional debridement Anesthesia Used: 4% Lidocaine Solution Depth: Down to and including healthy tissue and in the subcutaneous layer Percentage of wound debrided: 100 Instrument Used: 5mm curette Tissue Removed: Slough and devitalized tissue Severity: Fat Layer Exposed Amount of bleeding with debridement: Mild Bleeding Controlled with: Pressure Patient tolerated procedure: Patient tolerated procedure well Additional Wound Wound debrided: Left lower extremity inferior Type of Debridement: Excisional debridement Anesthesia Used: 4% Lidocaine Solution Depth: Down to and including healthy tissue and in the subcutaneous layer Percentage of wound debrided: 100 Instrument Used: 5mm curette Tissue Removed: Slough and devitalized tissue Severity: Limited To Skin Breakdown Amount of bleeding with debridement: Mild Bleeding Controlled with: Pressure Patient tolerated procedure: Patient tolerated procedure well Additional Wound Wound debrided: Left lower extremity superior Type of Debridement: Excisional debridement Anesthesia Used: 4% Lidocaine Solution Depth: Down to and including healthy tissue and in the subcutaneous layer Percentage of wound debrided: 100 Instrument Used: 5mm curette Tissue Removed: Slough and devitalized tissue Severity: Fat Layer Exposed Amount of bleeding with debridement: Mild Bleeding Controlled with: Pressure Patient tolerated procedure: Patient tolerated procedure well
[2021-03-17 09:00] VITALS: BP 146/91; PULSE 82; RESP 18; TEMP 36.6; O2SAT 99; BMI 31.4
--- NOTE | 2021-03-17 09:46 | PN.PCM_ITS ---
History of Present Illness Date of Service: 03/17/21 Chief Complaint: ulcers to the left lower leg History of Wound: This is a 54-year-old male presents to wound healing center with a long-standing history of chronic venous insufficiency, chronic venous hypertension, lower extremity edema, lower extremity pain, and chronic left lower extremity ulcer. 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 He is currently wearing graduated compression stockings which are documented to be 20-30 mmHg compression and these are thigh high. He reports great compliance with use. He is also had previous arterial work-up with no intervention recommended by letter, his vascular surgeon. He denies taking nutritional supplementation. He saw dermatology and had a biopsy of the ulcer site. He also was previously treated by infectious disease for various contaminations and infections. He is not antibiotics at this time nor does he have any redness or odor coming from the wound. He denies fever, chill, nausea, vomiting, loss of appetite. Subjective Subjective No new concerns at this time. Denies any further purulent drainage or concerns. Objective Data Objective Data Vital Signs: Vital Signs Temp Pulse Resp BP Pulse Ox 97.9 F 82 18 146/91 H 99 03/17/21 09:00 03/17/21 09:00 03/17/21 09:00 03/17/21 09:00 03/17/21 09:00 Oxygen Delivery Method Room Air Body Mass Index (BMI) 31.4 Charges/Coding Procedures Integumentary 111xxx-113xx: 01920 Lakeisha subq tissue 20 sq cm/< Add On Codes: 61694 Lakeisha subq tissue add-on Physical Exam Const alert, oriented x3 and no apparent distress General Appearance: cooperative and comfortable Orientation / Consciousness: awake HEENT normocephalic Head and Scalp: normal to inspection, normocephalic and atraumatic Face and Sinus: normal facial exam Eyes EOMs intact bilaterally Neck full ROM and supple General: normal visual inspection Resp normal respiratory effort Effort and Inspection: able to speak in complete sentences GI non-tender Extremity normal to inspection General Extremity: edema Skin Wounds: wounds noted Neuro oriented x3 and CN's II-XII intact bilaterally Psych mental status grossly normal Appearance: grossly normal Debridement Note Debridement Note Post-Debridement Measurements and Additional Note: Post-Debridement Measurements/Treatment - Nurse 1 - General Ulcer Assessment Start: 03/03/21 09:03 Freq: Status: Active Protocol: SHANTA Activity Type Activity Date Activity User E-Sign Co-Sign Detail Recorded Client Recorded Date Recorded By Document 03/03/21 09:03 DC [id number] 03/03/21 09:12 DC Document 03/17/21 09:00 DC [id number] 03/17/21 09:10 DC 03/03/21 03/17/21 09:03 09:00 WC - Today's Visit Information Type of service Follow-up Visit Follow-up Visit (Physician/CLINICAL INFORMATICIST (Physician/CLINICAL INFORMATICIST ) ) Arrival Mode Ambulatory Ambulatory Accompanied by self Patient Identification Verified (Name & Yes Yes ) Height and Weight Body Mass Index (BMI) 31.4 31.4 BMI Classification Obese Obese Vital Signs Temperature (97.8 F-99.1 F) 97.0 F L 97.9 F Temperature Source Temporal Temporal Pulse Rate (60-100) 80 82 Pulse Location Monitor Monitor Respiratory Rate (12-18) 16 18 Respiratory rate source Observation Observation Pulse Oximetry 99 Oxygen Delivery Method Room Air Room Air Blood Pressure (90/60-120/80) 157/85 H 146/91 H Blood Pressure Mean (mm Hg) 109 109 Source Monitor Monitor Position Sitting Sitting Blood Pressure Location Left Arm Right Arm History Since Last Visit- (Skip if this is Patient's initial visit) Have you changed medications since your No last visit? Any new allergies or adverse reactions No Have you been in the hospital since your No last visit? Has dressing in place as prescribed Yes Has compression in place as prescribed Yes Has offloadiing in place as prescribed N/A Experienced any changes in pain level or No management Left Footwear Regular Shoe Right Footwear Regular Shoe - Nurse 1 - General Ulcer Measurement Start: 03/03/21 09:03 Freq: Status: Active Protocol: Activity Type Activity Date Activity User E-Sign Co-Sign Detail Recorded Client Recorded Date Recorded By Document 03/03/21 09:03 DC [id number] 03/03/21 09:12 DC Document 03/17/21 09:00 DC [id number] 03/17/21 09:10 DC 03/03/21 03/17/21 09:03 09:00 Wound Center Nurse 1 #12 Medial Superior LLE -Current Size (cm) - Length 2.2 2 -Current Size (cm) - Width 2.5 2.1 -Current Size (cm) - Depth 0.1 0.1 -Total Square Cm 5.50 4.2 -Exudate Amt Small Small -Exudate Type Serosanguineous Serosanguineous -Wound Margin Flat & Intact Thickened & Rolled Under -Granulation Amt Large (67-100%) Large (67-100%) -Granulation Quality Pale,[place] Pale,[place],Red -Slough/Fibrin No -Necrosis Amt Small (1-33%) -Necrotic Tissue Type Adherent Slough -Texture (Raa-wound Skin Appearance) Assessed Assessed -Moisture (Ara-wound Skin Appearance) Assessed Assessed -Color (Ara-wound Skin Appearance) Assessed Assessed -Temperature (Ara-wound Skin No Abnormality No Abnormality Appearance) (Pt Warm) (Pt Warm) -Tenderness on Palpation (Aar-wound No No Skin Appearance) -Ulcer Cleansing Rinsed/ Rinsed/ Irrigated with Irrigated with Saline Saline -Foul Odor after Cleansing No No -Anesthetic Used 4% Lidocaine 4% Lidocaine Solution Solution #11 Medial Inferior LLE -Current Size (cm) - Length 5.5 5.5 -Current Size (cm) - Width 4.0 3.5 -Current Size (cm) - Depth 0.1 0.1 -Total Square Cm 22.00 19.25 -Exudate Amt Small Small -Exudate Type Serosanguineous Serosanguineous -Wound Margin Flat & Intact Flat & Intact -Granulation Amt Medium (34-66%) Large (67-100%) -Granulation Quality Pale,[place] Pale,[place],Red -Slough/Fibrin No -Necrosis Amt Medium (34-66%) Small (1-33%) -Necrotic Tissue Type Adherent Slough Adherent Slough -Texture (Ara-wound Skin Appearance) Assessed Assessed -Moisture (Ara-wound Skin Appearance) Assessed Assessed -Color (Ara-wound Skin Appearance) Assessed Assessed -Temperature (Ara-wound Skin No Abnormality No Abnormality Appearance) (Pt Warm) (Pt Warm) -Tenderness on Palpation (Ara-wound No No Skin Appearance) -Ulcer Cleansing Rinsed/ Rinsed/ Irrigated with Irrigated with Saline Saline -Foul Odor after Cleansing No No -Anesthetic Used 4% Lidocaine 4% Lidocaine Solution Solution #10 Left Medial Ankle -Current Size (cm) - Length 5 5.5 -Current Size (cm) - Width 3.1 3.0 -Current Size (cm) - Depth 0.1 0.1 -Total Square Cm 15.5 16.50 -Exudate Amt Small Small -Exudate Type Serosanguineous Serosanguineous -Wound Margin Flat & Intact Flat & Intact -Granulation Amt Small (1-33%) Large (67-100%) -Granulation Quality Pale,[place] Pale,[place],Red -Necrosis Amt Large (67-100%) Small (1-33%) -Necrotic Tissue Type Adherent Slough Adherent Slough -Texture (Ara-wound Skin Appearance) Assessed Assessed -Moisture (Ara-wound Skin Appearance) Assessed Assessed -Color (Ara-wound Skin Appearance) Assessed Assessed -Temperature (Ara-wound Skin No Abnormality No Abnormality Appearance) (Pt Warm) (Pt Warm) -Tenderness on Palpation (Ara-wound No No Skin Appearance) -Ulcer Cleansing Rinsed/ Rinsed/ Irrigated with Irrigated with Saline Saline -Foul Odor after Cleansing No No -Anesthetic Used 4% Lidocaine 4% Lidocaine Solution Solution Left Calf (cm) 34 34 Left Ankle (cm) 23 23 WC - Nurse 2 - General Ulcer CM Notes Start: 03/03/21 09:03 Freq: Status: Active Protocol: Activity Type Activity Date Activity User E-Sign Co-Sign Detail Recorded Client Recorded Date Recorded By Document 03/03/21 09:49 MW [id number] 03/03/21 09:57 MW Document 03/17/21 09:22 MW [id number] 03/17/21 09:33 MW 03/03/21 03/17/21 09:49 09:22 Wound Center Nurse 2 #12 Medial Superior LLE -Time 09:49 09:22 -Correct Patient Yes Yes -Correct Side, Site, Position Yes Yes -Correct Procedure Yes Yes -Procedure Performed Yes Yes -Type of Procedure Debridement Debridement -Clinical Debridement Subcutaneous Subcutaneous -Tissue Removed Subcutaneous Subcutaneous -Post Debridement (cm) - Length 2.3 1.8 -Post Debridement (cm) - Width 2.5 2.2 -Post Debridement (cm) - Depth 0.1 0.1 -Total Square (Post) (cm) 5.75 3.96 -Area of Debridement (cm) - Length 2.3 1.8 -Area of Debridement (cm) - Width 2.5 2.2 -Total Square (Area) (cm) 5.75 3.96 -Tunneling No No -Undermining/Tunneling No No -Circular Undermining No No -Wound/Ulcer Outcome Not Healed Not Healed -Ulcer Cleansing Rinsed/ Rinsed/ Irrigated with Irrigated with Saline Saline -Foul Odor after Cleansing No No -Bioengineered Tissue No No -Bleeding Controlled with Pressure Pressure -Offloading No No -Treatment Response Procedure Procedure Tolerated Well Tolerated Well -Debridement - Subq, 1st 20sq cm Yes Yes -Debridement, SubQ, ea addt'l 20sq cm 1 or part thereof #11 Medial Inferior LLE -Time 09:50 09:23 -Correct Patient Yes Yes -Correct Side, Site, Position Yes Yes -Correct Procedure Yes Yes -Procedure Performed Yes Yes -Type of Procedure Debridement Debridement -Clinical Debridement Subcutaneous Subcutaneous -Tissue Removed Dermis Subcutaneous -Post Debridement (cm) - Length 3.5 3.0 -Post Debridement (cm) - Width 3.5 3.8 -Post Debridement (cm) - Depth 0.2 0.2 -Total Square (Post) (cm) 12.25 11.40 -Area of Debridement (cm) - Length 3.5 3.0 -Area of Debridement (cm) - Width 3.5 3.8 -Total Square (Area) (cm) 12.25 11.40 -Tunneling No No -Undermining/Tunneling No No -Circular Undermining No No -Wound/Ulcer Outcome Not Healed Healed- Surgical Closure -Ulcer Cleansing Rinsed/ Irrigated with Saline -Foul Odor after Cleansing No No -Bioengineered Tissue No No -Bleeding Controlled with Pressure Pressure -Offloading No No -Treatment Response Procedure Procedure Tolerated Well Tolerated Well -Debridement - Subq, 1st 20sq cm No No #10 Left Medial Ankle -Time 09:50 09:23 -Correct Patient Yes Yes -Correct Side, Site, Position Yes Yes -Correct Procedure Yes Yes -Procedure Performed Yes Yes -Type of Procedure Debridement Debridement -Clinical Debridement Subcutaneous Subcutaneous -Tissue Removed Subcutaneous Subcutaneous -Post Debridement (cm) - Length 3.0 3.0 -Post Debridement (cm) - Width 3.1 2.9 -Post Debridement (cm) - Depth 0.2 0.2 -Total Square (Post) (cm) 9.30 8.70 -Area of Debridement (cm) - Length 3.0 3.0 -Area of Debridement (cm) - Width 3.1 2.9 -Total Square (Area) (cm) 9.30 8.70 -Tunneling No No -Undermining/Tunneling No No -Circular Undermining No No -Wound/Ulcer Outcome Not Healed Not Healed -Ulcer Cleansing Rinsed/ Rinsed/ Irrigated with Irrigated with Saline Saline -Foul Odor after Cleansing No No -Bioengineered Tissue No No -Bleeding Controlled with Pressure Pressure -Offloading No No -Treatment Response Procedure Procedure Tolerated Well Tolerated Well -Debridement - Subq, 1st 20sq cm No No Pain Scale: 0-10 Numeric Is Patient Pain Free? Yes Yes - Nurse 3 - General Ulcer D/C NN Start: 03/03/21 09:03 Freq: Status: Active Protocol: Activity Type Activity Date Activity User E-Sign Co-Sign Detail Recorded Client Recorded Date Recorded By Document 03/03/21 10:09 DC [id number] 03/03/21 10:12 DC Document 03/17/21 09:43 DC [id number] 03/17/21 09:43 DC 03/03/21 03/17/21 10:09 09:43 Wound Care Nurse 3 #12 Medial Superior LLE -Other Dressing AG pt brought pt brought supplies -Primary Dressing Covered/Secured with Dry Gauze, Secured with Tape -Other Covering keramax, AG and half abd WC - Visit Discharge Discharge Condition Stable Stable Ambulatory Status Ambulatory Ambulatory Transportation Private Auto Private Auto Medication Reconcilliation completed & No No provided to patient/care provider Clinical Summary of Care Provided Yes Yes Notes: see in two weeks Wound debrided: Left medial ankle Type of Debridement: Excisional debridement Anesthesia Used: 4% Lidocaine Solution Depth: Down to and including healthy tissue and in the subcutaneous layer Percentage of wound debrided: 100 Instrument Used: 5mm curette Tissue Removed: Slough and devitalized tissue Severity: Fat Layer Exposed Amount of bleeding with debridement: Mild Bleeding Controlled with: Pressure Patient tolerated procedure: Patient tolerated procedure well Additional Wound Wound debrided: Left lower extremity inferior Type of Debridement: Excisional debridement Anesthesia Used: 4% Lidocaine Solution Depth: Down to and including healthy tissue and in the subcutaneous layer Percentage of wound debrided: 100 Instrument Used: 5mm curette Tissue Removed: Slough and devitalized tissue Severity: Fat Layer Exposed Amount of bleeding with debridement: Mild Bleeding Controlled with: Pressure Patient tolerated procedure: Patient tolerated procedure well Additional Wound Wound debrided: Left lower extremity superior Type of Debridement: Excisional debridement Anesthesia Used: 4% Lidocaine Solution Depth: Down to and including healthy tissue and in the subcutaneous layer Percentage of wound debrided: 100 Instrument Used: 5mm curette Tissue Removed: Slough and devitalized tissue Severity: Fat Layer Exposed Amount of bleeding with debridement: Mild Bleeding Controlled with: Pressure Patient tolerated procedure: Patient tolerated procedure well Assessment/Plan Assessment/Plan (1) Ulcer of left lower extremity with fat layer exposed: CODE(S): Code(s): L97.922 - Non-pressure chronic ulcer of unspecified part of left lower leg with fat layer exposed (2) PVD (peripheral vascular disease): CODE(S): Code(s): I73.9 - Peripheral vascular disease, unspecified (3) Chronic venous insufficiency: CODE(S): Code(s): I87.2 - Venous insufficiency (chronic) (peripheral) (4) Delayed wound healing: CODE(S): Code(s): T14.8XXD - Other injury of unspecified body region, subsequent encounter PLAN: Debridement done as documented above, procedure was well-tolerated. Some improvement noted. Has completed antibiotics, no further concerns. Continue Aquacel Ag and Kervalricox care. Change daily to twice daily depending on drainage. Continue use of compression stockings, leg elevation and exercise. Increased protein intake , protein supplements, zinc and vitamin C also recommended. His questions were answered and he was advised to call with any further questions or concerns. Follow up in 2 weeks per patient preference. This note was generated with [employer] dictation software. It may contain incorrect words, spelling, and punctuation that were not noted in checking the note before signing.
== END 2021-03-28 23:59 ==
LOC: WC 09:00
PROVIDERS: Visit Provider Internal Medicine
DX: I73.9 Peripheral vascular disease, unspecified (principal); I87.2 Venous insufficiency (chronic) (peripheral); R60.0 Localized edema; M79.606 Pain in leg, unspecified; L97.322 Non-pressure chronic ulcer of left ankle with fat layer exposed; L97.822 Non-pressure chronic ulcer of other part of left lower leg with fat layer exposed; L97.821 Non-pressure chronic ulcer of other part of left lower leg limited to breakdown of skin
CPT/HCPCS: 11042; 11045

== ENCOUNTER 2021-04-14 09:00 | Outpatient (RCR) | payer BC, SELFPAY ==
[2021-03-29 00:20] VITALS: BP 146/91; PULSE 82; RESP 18; TEMP 36.6; O2SAT 99
[2021-03-31 09:04] VITALS: BP 151/59; PULSE 95; TEMP 36.2; BMI 31.4
--- NOTE | 2021-03-31 09:30 | PN.PCM_ITS ---
History of Present Illness Date of Service: 03/31/21 Chief Complaint: ulcers to the left lower leg History of Wound: This is a 54-year-old male presents to wound healing center with a long-standing history of chronic venous insufficiency, chronic venous hypertension, lower extremity edema, lower extremity pain, and chronic left lower extremity ulcer. The patient has previously undergone endovenous laser ablation of the left and right great saphenous vein, the small saphenous vein, the left accessory saphenous vein, and an incompetent left calf organ pipe maker metal vein located 15 cm proximal to the left medial malleolus. He is currently wearing graduated compression stockings which are documented to be 20-30 mmHg compression and these are thigh high. He reports great compliance with use. He is also had previous arterial work-up with no intervention recommended by letter, his vascular surgeon. He denies taking nutritional supplementation. He saw dermatology and had a biopsy of the ulcer site. He also was previously treated by infectious disease for various contaminations and infections. He is not antibiotics at this time nor does he have any redness or odor coming from the wound. He denies fever, chill, nausea, vomiting, loss of appetite. Subjective Subjective No new concerns at this time. He states that he has been using his compression as recommended. Objective Data Objective Data Vital Signs: Vital Signs Temp Pulse Resp BP Pulse Ox 97.2 F L 95 18 151/59 H 99 03/31/21 09:04 03/31/21 09:04 03/29/21 00:20 03/31/21 09:04 03/29/21 00:20 Body Mass Index (BMI) 31.4 Charges/Coding Procedures Integumentary 111xxx-113xx: [id number] Lakeisha subq tissue 20 sq cm/< Add On Codes: 27640 Lakeisha subq tissue add-on Physical Exam Const alert, oriented x3 and no apparent distress General Appearance: cooperative and comfortable Orientation / Consciousness: awake HEENT normocephalic Head and Scalp: normal to inspection, normocephalic and atraumatic Face and Sinus: normal facial exam Eyes EOMs intact bilaterally Neck full ROM and supple General: normal visual inspection Resp normal respiratory effort Effort and Inspection: able to speak in complete sentences GI non-tender Extremity normal to inspection General Extremity: edema Skin Wounds: wounds noted Neuro oriented x3 and CN's II-XII intact bilaterally Psych mental status grossly normal Appearance: grossly normal Debridement Note Debridement Note Post-Debridement Measurements and Additional Note: Post-Debridement Measurements/Treatment KIMBERLY - Nurse 1 - General Ulcer Assessment Start: 03/31/21 09:04 Freq: Status: Active Protocol: SHANTA Activity Type Activity Date Activity User E-Sign Co-Sign Detail Recorded Client Recorded Date Recorded By Document 03/31/21 09:04 REINA [id number] 03/31/21 09:08 REINA 03/31/21 09:04 - Today's Visit Information Type of service Follow-up Visit (Physician/GROUP MANAGER ) Arrival Mode Ambulatory Patient Identification Verified (Name & Yes ) Height and Weight Body Mass Index (BMI) 31.4 BMI Classification Obese Vital Signs Temperature (97.8 F-99.1 F) 97.2 F L Temperature Source Temporal Pulse Rate (60-100) 95 Pulse Location Monitor Blood Pressure (90/60-120/80) 151/59 H Blood Pressure Mean (mm Hg) 89 Source Monitor Position Semi-Fowlers Blood Pressure Location Left Arm History Since Last Visit- (Skip if this is Patient's initial visit) Have you changed medications since your No last visit? Any new allergies or adverse reactions No Had a fall/change in ADL's that may No increase risk of falls Signs or symptoms of abuse and/or No neglect since last visit Have you been in the hospital since your No last visit? Has dressing in place as prescribed Yes Has compression in place as prescribed N/A Has offloadiing in place as prescribed N/A Experienced any changes in pain level or No management Left Footwear Regular Shoe Right Footwear Regular Shoe Pain Scale: 0-10 Numeric Is Patient Pain Free? Yes - Nurse 1 - General Ulcer Measurement Start: 03/31/21 09:04 Freq: Status: Active Protocol: Activity Type Activity Date Activity User E-Sign Co-Sign Detail Recorded Client Recorded Date Recorded By Document 03/31/21 09:04 REINA [id number] 03/31/21 09:08 REINA 03/31/21 09:04 Wound Center Nurse 1 #12 Medial Superior LLE -Current Size (cm) - Length 1.5 -Current Size (cm) - Width 2.3 -Current Size (cm) - Depth 0.3 -Total Square Cm 3.45 -Exudate Amt Medium -Exudate Type Serosanguineous -Wound Margin Distinct, Outline Attached -Granulation Amt Large (67-100%) -Granulation Quality Red -Necrosis Amt None Present (0 %) -Texture (Ara-wound Skin Appearance) Assessed, Scarring -Moisture (Ara-wound Skin Appearance) No Abnormality, Assessed -Color (Ara-wound Skin Appearance) No Abnormality, Assessed -Temperature (Ara-wound Skin No Abnormality Appearance) (Pt Warm) -Tenderness on Palpation (Ara-wound No Skin Appearance) -Ulcer Cleansing Rinsed/ Irrigated with Saline -Foul Odor after Cleansing No -Anesthetic Used 5% Lidocaine Gel #11 Medial Inferior LLE -Current Size (cm) - Length 3.8 -Current Size (cm) - Width 3.5 -Current Size (cm) - Depth 0.3 -Total Square Cm 13.30 -Exudate Amt Small -Exudate Type Serosanguineous -Wound Margin Distinct, Outline Attached -Granulation Amt Medium (34-66%) -Granulation Quality Red -Necrosis Amt None Present (0 %) -Texture (Ara-wound Skin Appearance) Assessed, Scarring -Moisture (Ara-wound Skin Appearance) No Abnormality, Assessed -Color (Ara-wound Skin Appearance) No Abnormality, Assessed -Temperature (Ara-wound Skin No Abnormality Appearance) (Pt Warm) -Tenderness on Palpation (Ara-wound No Skin Appearance) -Ulcer Cleansing Rinsed/ Irrigated with Saline -Foul Odor after Cleansing No -Anesthetic Used 5% Lidocaine Gel #10 Left Medial Ankle -Current Size (cm) - Length 4.5 -Current Size (cm) - Width 2.8 -Current Size (cm) - Depth 0.3 -Total Square Cm 12.60 -Exudate Amt Small -Exudate Type Serosanguineous -Wound Margin Distinct, Outline Attached -Granulation Amt Medium (34-66%) -Granulation Quality Red -Necrosis Amt None Present (0 %) -Texture (Ara-wound Skin Appearance) Assessed, Scarring -Moisture (Ara-wound Skin Appearance) No Abnormality, Assessed -Color (Ara-wound Skin Appearance) No Abnormality, Assessed -Temperature (Ara-wound Skin No Abnormality Appearance) (Pt Warm) -Tenderness on Palpation (Ara-wound No Skin Appearance) -Ulcer Cleansing Rinsed/ Irrigated with Saline -Foul Odor after Cleansing No -Anesthetic Used 5% Lidocaine Gel WC - Nurse 2 - General Ulcer CM Notes Start: 03/31/21 09:04 Freq: Status: Active Protocol: Activity Type Activity Date Activity User E-Sign Co-Sign Detail Recorded Client Recorded Date Recorded By Document 03/31/21 09:14 MW [id number] 03/31/21 09:26 MW 03/31/21 09:14 Wound Center Nurse 2 #12 Medial Superior LLE -Time 09:15 -Correct Patient Yes -Correct Side, Site, Position Yes -Correct Procedure Yes -Procedure Performed Yes -Type of Procedure Debridement -Clinical Debridement Subcutaneous -Tissue Removed Subcutaneous -Post Debridement (cm) - Length 2.0 -Post Debridement (cm) - Width 2.0 -Post Debridement (cm) - Depth 0.1 -Total Square (Post) (cm) 4.00 -Area of Debridement (cm) - Length 2.0 -Area of Debridement (cm) - Width 2.0 -Total Square (Area) (cm) 4.00 -Tunneling No -Undermining/Tunneling No -Circular Undermining No -Wound/Ulcer Outcome Not Healed -Ulcer Cleansing Rinsed/ Irrigated with Saline -Foul Odor after Cleansing No -Bioengineered Tissue No -Bleeding Controlled with Pressure -Offloading No -Treatment Response Procedure Tolerated Well -Debridement - Subq, 1st 20sq cm Yes #11 Medial Inferior LLE -Time 09:15 -Correct Patient Yes -Correct Side, Site, Position Yes -Correct Procedure Yes -Procedure Performed Yes -Type of Procedure Debridement -Clinical Debridement Subcutaneous -Tissue Removed Subcutaneous -Post Debridement (cm) - Length 3.2 -Post Debridement (cm) - Width 3.3 -Post Debridement (cm) - Depth 0.2 -Total Square (Post) (cm) 10.56 -Area of Debridement (cm) - Length 3.2 -Area of Debridement (cm) - Width 3.3 -Total Square (Area) (cm) 10.56 -Tunneling No -Undermining/Tunneling No -Circular Undermining No -Wound/Ulcer Outcome Not Healed -Ulcer Cleansing Rinsed/ Irrigated with Saline -Foul Odor after Cleansing No -Bioengineered Tissue No -Bleeding Controlled with Pressure -Offloading No -Treatment Response Procedure Tolerated Well -Debridement - Subq, 1st 20sq cm No #10 Left Medial Ankle -Time 09:15 -Correct Patient Yes -Correct Side, Site, Position Yes -Correct Procedure Yes -Procedure Performed Yes -Type of Procedure Debridement -Clinical Debridement Subcutaneous -Tissue Removed Subcutaneous -Post Debridement (cm) - Length 4.0 -Post Debridement (cm) - Width 3.0 -Post Debridement (cm) - Depth 0.2 -Total Square (Post) (cm) 12.00 -Area of Debridement (cm) - Length 4.0 -Area of Debridement (cm) - Width 3.0 -Total Square (Area) (cm) 12.00 -Tunneling No -Undermining/Tunneling No -Circular Undermining No -Wound/Ulcer Outcome Not Healed -Ulcer Cleansing Rinsed/ Irrigated with Saline -Foul Odor after Cleansing No -Bioengineered Tissue No -Bleeding Controlled with Pressure -Offloading No -Treatment Response Procedure Tolerated Well -Debridement - Subq, 1st 20sq cm No Pain Scale: 0-10 Numeric Is Patient Pain Free? Yes Additional Wound Wound debrided: Left lower extremity medial ankle Type of Debridement: Excisional debridement Anesthesia Used: 4% Lidocaine Solution and 5% Lidocaine Gel Depth: Down to and including healthy tissue and in the subcutaneous layer Percentage of wound debrided: 100 Instrument Used: 5mm curette Tissue Removed: Slough and devitalized tissue Severity: Fat Layer Exposed Amount of bleeding with debridement: Mild Bleeding Controlled with: Pressure Patient tolerated procedure: Patient tolerated procedure well Additional Wound Wound debrided: Left lower extremity inferior Type of Debridement: Excisional debridement Anesthesia Used: 4% Lidocaine Solution and 5% Lidocaine Gel Depth: Down to and including healthy tissue and in the subcutaneous layer Percentage of wound debrided: 100 Instrument Used: 5mm curette Tissue Removed: Slough and devitalized tissue Severity: Fat Layer Exposed Amount of bleeding with debridement: Mild Bleeding Controlled with: Pressure Patient tolerated procedure: Patient tolerated procedure well Additional Wound Wound debrided: Left lower extremity superior Type of Debridement: Excisional debridement Anesthesia Used: 4% Lidocaine Solution and 5% Lidocaine Gel Depth: Down to and including healthy tissue and in the subcutaneous layer Percentage of wound debrided: 100 Instrument Used: 5mm curette Tissue Removed: Slough and devitalized tissue Severity: Fat Layer Exposed Amount of bleeding with debridement: Mild Bleeding Controlled with: Pressure Patient tolerated procedure: Patient tolerated procedure well Assessment/Plan Assessment/Plan (1) Ulcer of left lower extremity with fat layer exposed: CODE(S): L97.922 - Non-pressure chronic ulcer of unspecified part of left lower leg with fat layer exposed (2) PVD (peripheral vascular disease): CODE(S): I73.9 - Peripheral vascular disease, unspecified (3) Chronic venous insufficiency: CODE(S): I87.2 - Venous insufficiency (chronic) (peripheral) (4) Delayed wound healing: CODE(S): T14.8XXD - Other injury of unspecified body region, subsequent encounter PLAN: Debridement done as documented above, procedure was well-tolerated. No new concerns at this time. Continue Aquacel Ag and Keramax care. Change daily to twice daily depending on drainage. Continue use of compression stockings, leg elevation and exercise. Increased protein intake , protein supplements, zinc and vitamin C also recommended. His questions were answered and he was advised to call with any further questions or concerns. Follow up in 2 weeks per patient preference. This note was generated with [employer] dictation software. It may contain incorrect words, spelling, and punctuation that were not noted in checking the note before signing.
[2021-04-14 09:14] VITALS: BP 148/79; PULSE 77; RESP 18; TEMP 36.3; BMI 31.4
--- NOTE | 2021-04-14 12:10 | PCM.WC.PN ---
History of Present Illness Date of Service: 04/14/21 Chief Complaint: ulcers to the left lower leg History of Wound: This is a 54-year-old male presents to wound healing center with a long-standing history of chronic venous insufficiency, chronic venous hypertension, lower extremity edema, lower extremity pain, and chronic left lower extremity ulcer. The patient has previously undergone endovenous laser ablation of the left and right great saphenous vein, the small saphenous vein, the left accessory saphenous vein, and an incompetent left calf oil well directional surveyor vein located 15 cm proximal to the left medial malleolus. He is currently wearing graduated compression stockings which are documented to be 20-30 mmHg compression and these are thigh high. He reports great compliance with use. He is also had previous arterial work-up with no intervention recommended by letter, his vascular surgeon. He denies taking nutritional supplementation. He saw dermatology and had a biopsy of the ulcer site. He also was previously treated by infectious disease for various contaminations and infections. He is not antibiotics at this time nor does he have any redness or odor coming from the wound. He denies fever, chill, nausea, vomiting, loss of appetite. Subjective Subjective Area of Maceration around the left ankle wound. States he has been leaving his dressing on for 2 days. Now open to revisiting vascular surgery and skin substitute Objective Data Objective Data Vital Signs: Vital Signs Temp Pulse Resp BP Pulse Ox 97.3 F L 77 18 148/79 H 99 04/14/21 09:14 04/14/21 09:14 04/14/21 09:14 04/14/21 09:14 03/29/21 00:20 Body Mass Index (BMI) 31.4 Charges/Coding Procedures Integumentary 111xxx-113xx: 36675 Lakeisha subq tissue 20 sq cm/< Add On Codes: 44687 Lakeisha subq tissue add-on Physical Exam Const alert, oriented x3 and no apparent distress General Appearance: cooperative and comfortable Orientation / Consciousness: awake HEENT normocephalic Head and Scalp: normal to inspection, normocephalic and atraumatic Face and Sinus: normal facial exam Eyes EOMs intact bilaterally Neck full ROM and supple General: normal visual inspection Resp normal respiratory effort Effort and Inspection: able to speak in complete sentences GI non-tender Extremity normal to inspection General Extremity: edema Skin Wounds: wounds noted Neuro oriented x3 and CN's II-XII intact bilaterally Psych mental status grossly normal Appearance: grossly normal Debridement Note Debridement Note Post-Debridement Measurements and Additional Note: Post-Debridement Measurements/Treatment - Nurse 1 - General Ulcer Assessment Start: 03/31/21 09:04 Freq: Status: Active Protocol: SHANTA Activity Type Activity Date Activity User E-Sign Co-Sign Detail Recorded Client Recorded Date Recorded By Document 03/31/21 09:04 KR [id number] 03/31/21 09:08 KR Document 04/14/21 09:14 RB [id number] 04/14/21 09:18 RB 03/31/21 04/14/21 09:04 09:14 WC - Today's Visit Information Type of service Follow-up Visit Follow-up Visit (Physician/MIXING TANK OPERATOR (Physician/MIXING TANK OPERATOR ) ) Arrival Mode Ambulatory Ambulatory Transfer Assistance None Patient Identification Verified (Name & Yes Yes ) Patient Requires Transmission-Based No Precautions Height and Weight Body Mass Index (BMI) 31.4 31.4 BMI Classification Obese Obese Vital Signs Temperature (97.8 F-99.1 F) 97.2 F L 97.3 F L Temperature Source Temporal Temporal Pulse Rate (60-100) 95 77 Pulse Location Monitor Monitor Respiratory Rate (12-18) 18 Respiratory rate source Observation Blood Pressure (90/60-120/80) 151/59 H 148/79 H Blood Pressure Mean (mm Hg) 89 102 Source Monitor Monitor Position Semi-Fowlers Semi-Fowlers Blood Pressure Location Left Arm Left Arm History Since Last Visit- (Skip if this is Patient's initial visit) Have you changed medications since your No No last visit? Any new allergies or adverse reactions No No Had a fall/change in ADL's that may No No increase risk of falls Signs or symptoms of abuse and/or No No neglect since last visit Have you been in the hospital since your No No last visit? Has dressing in place as prescribed Yes Yes Has compression in place as prescribed N/A Yes Has offloadiing in place as prescribed N/A No Experienced any changes in pain level or No No management Left Footwear Regular Shoe Regular Shoe Right Footwear Regular Shoe Regular Shoe Pain Scale: 0-10 Numeric Is Patient Pain Free? Yes Yes KIMBERLY - Nurse 1 - General Ulcer Measurement Start: 03/31/21 09:04 Freq: Status: Active Protocol: Activity Type Activity Date Activity User E-Sign Co-Sign Detail Recorded Client Recorded Date Recorded By Document 03/31/21 09:04 KR [id number] 03/31/21 09:08 KR Document 04/14/21 09:14 RB [id number] 04/14/21 09:18 RB 03/31/21 04/14/21 09:04 09:14 Wound Center Nurse 1 #12 Medial Superior LLE -Combined with other wound No -Current Size (cm) - Length 1.5 1.8 -Current Size (cm) - Width 2.3 2.4 -Current Size (cm) - Depth 0.3 0.1 -Total Square Cm 3.45 4.32 -Tunneling No -Undermining/Tunneling No -Circular Undermining No -Exudate Amt Medium Large -Exudate Type Serosanguineous Serosanguineous -Wound Margin Distinct, Thickened & Outline Rolled Under Attached -Granulation Amt Large (67-100%) Medium (34-66%) -Granulation Quality [place] -Slough/Fibrin Yes -Necrosis Amt None Present (0 Medium (34-66%) %) -Necrotic Tissue Type Adherent Slough -Structure Exposed N/A -Texture (Ara-wound Skin Appearance) Assessed, Scarring Scarring -Moisture (Ara-wound Skin Appearance) No Abnormality, Dry/Scaly Assessed -Color (Ara-wound Skin Appearance) No Abnormality, Assessed Assessed -Temperature (Ara-wound Skin No Abnormality No Abnormality Appearance) (Pt Warm) (Pt Warm) -Tenderness on Palpation (Ara-wound No No Skin Appearance) -Ulcer Cleansing Rinsed/ Wound Cleanser Irrigated with Saline -Foul Odor after Cleansing No No -Anesthetic Used 5% Lidocaine 4% Lidocaine Gel Solution #11 Medial Inferior LLE -Current Size (cm) - Length 3.8 4.5 -Current Size (cm) - Width 3.5 3 -Current Size (cm) - Depth 0.3 0.1 -Total Square Cm 13.30 13.5 -Tunneling No -Undermining/Tunneling No -Circular Undermining No -Exudate Amt Small Medium -Exudate Type Serosanguineous Serosanguineous -Wound Margin Distinct, Thickened & Outline Rolled Under Attached -Granulation Amt Medium (34-66%) Medium (34-66%) -Granulation Quality [place] -Slough/Fibrin Yes -Necrosis Amt None Present (0 Small (1-33%) %) -Necrotic Tissue Type Adherent Slough -Structure Exposed N/A -Texture (Ara-wound Skin Appearance) Assessed, Assessed, Scarring Scarring -Moisture (Ara-wound Skin Appearance) No Abnormality, Assessed,Dry/ Assessed Scaly -Color (Ara-wound Skin Appearance) No Abnormality, Assessed Assessed -Temperature (Ara-wound Skin No Abnormality No Abnormality Appearance) (Pt Warm) (Pt Warm) -Tenderness on Palpation (Ara-wound No No Skin Appearance) -Ulcer Cleansing Rinsed/ Wound Cleanser Irrigated with Saline -Foul Odor after Cleansing No No -Anesthetic Used 5% Lidocaine 4% Lidocaine Gel Solution #10 Left Medial Ankle -Current Size (cm) - Length 4.5 4.6 -Current Size (cm) - Width 2.8 3 -Current Size (cm) - Depth 0.3 0.2 -Total Square Cm 12.60 13.8 -Tunneling No -Undermining/Tunneling No -Circular Undermining No -Exudate Amt Small Medium -Exudate Type Serosanguineous Serosanguineous -Wound Margin Distinct, Thickened & Outline Rolled Under Attached -Granulation Amt Medium (34-66%) Medium (34-66%) -Granulation Quality [place] -Slough/Fibrin Yes -Necrosis Amt None Present (0 Small (1-33%) %) -Necrotic Tissue Type Adherent Slough -Structure Exposed N/A -Texture (Ara-wound Skin Appearance) Assessed, Assessed, Scarring Scarring -Moisture (Ara-wound Skin Appearance) No Abnormality, Assessed,Dry/ Assessed Scaly -Color (Ara-wound Skin Appearance) No Abnormality, Assessed Assessed -Temperature (Ara-wound Skin No Abnormality No Abnormality Appearance) (Pt Warm) (Pt Warm) -Tenderness on Palpation (Ara-wound No No Skin Appearance) -Ulcer Cleansing Rinsed/ Wound Cleanser Irrigated with Saline -Foul Odor after Cleansing No No -Anesthetic Used 5% Lidocaine 4% Lidocaine Gel Solution WC - Nurse 2 - General Ulcer CM Notes Start: 03/31/21 09:04 Freq: Status: Active Protocol: Activity Type Activity Date Activity User E-Sign Co-Sign Detail Recorded Client Recorded Date Recorded By Document 03/31/21 09:14 MW [id number] 03/31/21 09:26 MW Edit Result 03/31/21 09:14 MW (1) [id number] 04/01/21 16:12 PL Document 04/14/21 09:39 MW [id number] 04/14/21 09:47 MW (1) #12 Medial Superior LLE - Debridement, SubQ, ea addt'l 20sq cm => 1 or part thereof 03/31/21 04/14/21 09:14 09:39 Wound Center Nurse 2 #12 Medial Superior LLE -Time 09:15 09:41 -Correct Patient Yes Yes -Correct Side, Site, Position Yes Yes -Correct Procedure Yes Yes -Procedure Performed Yes Yes -Type of Procedure Debridement Debridement -Clinical Debridement Subcutaneous Subcutaneous -Tissue Removed Subcutaneous Subcutaneous -Post Debridement (cm) - Length 2.0 1.8 -Post Debridement (cm) - Width 2.0 1.8 -Post Debridement (cm) - Depth 0.1 0.1 -Total Square (Post) (cm) 4.00 3.24 -Area of Debridement (cm) - Length 2.0 1.8 -Area of Debridement (cm) - Width 2.0 1.8 -Total Square (Area) (cm) 4.00 3.24 -Tunneling No No -Undermining/Tunneling No No -Circular Undermining No No -Wound/Ulcer Outcome Not Healed Not Healed -Ulcer Cleansing Rinsed/ Rinsed/ Irrigated with Irrigated with Saline Saline -Foul Odor after Cleansing No No -Bioengineered Tissue No No -Bleeding Controlled with Pressure Pressure -Offloading No No -Treatment Response Procedure Procedure Tolerated Well Tolerated Well -Debridement - Subq, 1st 20sq cm Yes Yes -Debridement, SubQ, ea addt'l 20sq cm 1 1 or part thereof #11 Medial Inferior LLE -Time 09:42 -Correct Patient Yes Yes -Correct Side, Site, Position Yes Yes -Correct Procedure Yes Yes -Procedure Performed Yes Yes -Type of Procedure Debridement Debridement -Clinical Debridement Subcutaneous Subcutaneous -Tissue Removed Subcutaneous Subcutaneous -Post Debridement (cm) - Length 3.2 3.0 -Post Debridement (cm) - Width 3.3 3.5 -Post Debridement (cm) - Depth 0.2 0.2 -Total Square (Post) (cm) 10.56 10.50 -Area of Debridement (cm) - Length 3.2 3.0 -Area of Debridement (cm) - Width 3.3 3.5 -Total Square (Area) (cm) 10.56 10.50 -Tunneling No No -Undermining/Tunneling No No -Circular Undermining No No -Wound/Ulcer Outcome Not Healed Not Healed -Ulcer Cleansing Rinsed/ Rinsed/ Irrigated with Irrigated with Saline Saline -Foul Odor after Cleansing No No -Bioengineered Tissue No No -Bleeding Controlled with Pressure Pressure -Offloading No No -Treatment Response Procedure Procedure Tolerated Well Tolerated Well -Debridement - Subq, 1st 20sq cm No Yes #10 Left Medial Ankle -Time 09:15 09:42 -Correct Patient Yes Yes -Correct Side, Site, Position Yes Yes -Correct Procedure Yes Yes -Procedure Performed Yes Yes -Type of Procedure Debridement Debridement -Clinical Debridement Subcutaneous Subcutaneous -Tissue Removed Subcutaneous Subcutaneous -Post Debridement (cm) - Length 4.0 4.0 -Post Debridement (cm) - Width 3.0 3.1 -Post Debridement (cm) - Depth 0.2 0.3 -Total Square (Post) (cm) 12.00 12.40 -Area of Debridement (cm) - Length 4.0 4.0 -Area of Debridement (cm) - Width 3.0 3.1 -Total Square (Area) (cm) 12.00 12.40 -Tunneling No No -Undermining/Tunneling No No -Circular Undermining No No -Wound/Ulcer Outcome Not Healed Healed- Surgical Closure -Ulcer Cleansing Rinsed/ Irrigated with Saline -Foul Odor after Cleansing No No -Bioengineered Tissue No No -Bleeding Controlled with Pressure Pressure -Offloading No No -Treatment Response Procedure Procedure Tolerated Well Tolerated Well -Debridement - Subq, 1st 20sq cm No No Pain Scale: 0-10 Numeric Is Patient Pain Free? Yes Yes - Nurse 3 - General Ulcer D/C NN Start: 03/31/21 09:04 Freq: Status: Active Protocol: Activity Type Activity Date Activity User E-Sign Co-Sign Detail Recorded Client Recorded Date Recorded By Document 03/31/21 09:37 MS [id number] 03/31/21 09:38 MS Document 04/14/21 09:54 DL [id number] 04/14/21 09:58 DL 03/31/21 04/14/21 09:37 09:54 Wound Care Nurse 3 #12 Medial Superior LLE -Ulcer Cleansing Rinsed/ Wound Cleanser Irrigated with Saline -Foul Odor after Cleansing No No -Primary Dressing Applied Aquacel AG 4x4 Aquacel AG 4x4 -Other Dressing Kerramax -Primary Dressing Covered/Secured with Dry Gauze, Dry Gauze Secured with Tape -Aquacel AG 4x4 1 1 #11 Medial Inferior LLE -Ulcer Cleansing Rinsed/ Rinsed/ Irrigated with Irrigated with Saline Saline -Foul Odor after Cleansing No -Primary Dressing Applied Aquacel AG 4x4 -Other Dressing Aquacel Ag/ Kerramax -Primary Dressing Covered/Secured with Dry Gauze -Aquacel AG 4x4 0 #10 Left Medial Ankle -Ulcer Cleansing Rinsed/ Rinsed/ Irrigated with Irrigated with Saline Saline -Foul Odor after Cleansing No -Primary Dressing Applied Aquacel AG 4x4 -Other Dressing KerraMax/ Aqaucwel AG -Primary Dressing Covered/Secured with Dry Gauze -Aquacel AG 4x4 0 Treatment Response Procedure Tolerated Well Pain Scale: 0-10 Numeric Is Patient Pain Free? Yes WC - Visit Discharge Discharge Condition Stable Stable Ambulatory Status Ambulatory Ambulatory Transportation Private Auto Private Auto Medication Reconcilliation completed & No provided to patient/care provider Clinical Summary of Care Provided Yes Wound debrided: Left medial ankle Type of Debridement: Excisional debridement Anesthesia Used: 4% Lidocaine Solution Depth: Down to and including healthy tissue and in the subcutaneous layer Percentage of wound debrided: 100 Instrument Used: 5mm curette Tissue Removed: Slough and devitalized tissue Severity: Fat Layer Exposed Amount of bleeding with debridement: Mild Bleeding Controlled with: Pressure Patient tolerated procedure: Patient tolerated procedure well Additional Wound Wound debrided: Left lower extremity inferior Type of Debridement: Excisional debridement Anesthesia Used: 4% Lidocaine Solution Depth: Down to and including healthy tissue and in the subcutaneous layer Percentage of wound debrided: 100 Instrument Used: 5mm curette Tissue Removed: Slough and devitalized tissue Severity: Fat Layer Exposed Amount of bleeding with debridement: Mild Bleeding Controlled with: Pressure Additional Wound Wound debrided: Left lower extremity superior Type of Debridement: Excisional debridement Anesthesia Used: 4% Lidocaine Solution Depth: Down to and including healthy tissue and in the subcutaneous layer Percentage of wound debrided: 100 Instrument Used: 5mm curette Tissue Removed: Slough and devitalized tissue Severity: Fat Layer Exposed Amount of bleeding with debridement: Mild Bleeding Controlled with: Pressure Patient tolerated procedure: Patient tolerated procedure well Assessment/Plan Assessment/Plan (1) Ulcer of left lower extremity with fat layer exposed: CODE(S): L97.922 - Non-pressure chronic ulcer of unspecified part of left lower leg with fat layer exposed (2) PVD (peripheral vascular disease): CODE(S): I73.9 - Peripheral vascular disease, unspecified (3) Chronic venous insufficiency: CODE(S): I87.2 - Venous insufficiency (chronic) (peripheral) (4) Delayed wound healing: CODE(S): T14.8XXD - Other injury of unspecified body region, subsequent encounter PLAN: Debridement done as documented above, procedure was well-tolerated. Continue Aquacel Ag and Keramax care. Strongly advised to change dressing daily to twice daily due to drainage. Continue use of compression stockings, leg elevation and exercise. Increased protein intake , protein supplements, zinc and vitamin C also recommended. As above, now open to revisiting vascular surgery and skin substitute. Application done. Ulcer is very chronic with significant delay in wound healing, believe he would benefit from a skin substitute. His questions were answered and he was advised to call with any further questions or concerns. Follow up in 2 weeks per patient preference. This note was generated with [employer] dictation software. It may contain incorrect words, spelling, and punctuation that were not noted in checking the note before signing.
== END 2021-04-27 23:59 ==
LOC: WC 09:00
PROVIDERS: Visit Provider Internal Medicine
DX: I73.9 Peripheral vascular disease, unspecified (principal); I87.2 Venous insufficiency (chronic) (peripheral); R60.0 Localized edema; M79.606 Pain in leg, unspecified; L97.322 Non-pressure chronic ulcer of left ankle with fat layer exposed; L97.822 Non-pressure chronic ulcer of other part of left lower leg with fat layer exposed
CPT/HCPCS: 11042; 11045

== ENCOUNTER 2021-05-26 09:00 | Outpatient (RCR) | payer BC, SELFPAY ==
[2021-04-28 00:18] VITALS: BP 148/79; PULSE 77; RESP 18; TEMP 36.3; O2SAT 99
[2021-04-28 09:04] VITALS: RESP 16; TEMP 36.1; BMI 31.4
--- NOTE | 2021-04-28 09:57 | PCM.WC.PN ---
History of Present Illness Date of Service: 04/28/21 Chief Complaint: ulcers to the left lower leg History of Wound: This is a 54-year-old male presents to wound healing center with a long-standing history of chronic venous insufficiency, chronic venous hypertension, lower extremity edema, lower extremity pain, and chronic left lower extremity ulcer. 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 He is currently wearing graduated compression stockings which are documented to be 20-30 mmHg compression and these are thigh high. He reports great compliance with use. He is also had previous arterial work-up with no intervention recommended by letter, his vascular surgeon. He denies taking nutritional supplementation. He saw dermatology and had a biopsy of the ulcer site. He also was previously treated by infectious disease for various contaminations and infections. He is not antibiotics at this time nor does he have any redness or odor coming from the wound. He denies fever, chill, nausea, vomiting, loss of appetite. Subjective Subjective Left Lower extremity inferior ulcer worsened. He states that he has been changing his dressings daily. Noted increased pain last week however that has resolved. No increased drainage. Now approved for [employer]. Objective Data Objective Data Vital Signs: Vital Signs Temp Pulse Resp BP Pulse Ox 97 F L 77 16 148/79 H 99 04/28/21 09:04 04/28/21 00:18 04/28/21 09:04 04/28/21 00:18 04/28/21 00:18 Oxygen Delivery Method Room Air Body Mass Index (BMI) 31.4 Charges/Coding Procedures Integumentary 150xxx-152xx: 92436 Skin sub graft trnk/arm/leg Physical Exam Const alert, oriented x3 and no apparent distress General Appearance: cooperative and comfortable Orientation / Consciousness: awake HEENT normocephalic Head and Scalp: normal to inspection, normocephalic and atraumatic Face and Sinus: normal facial exam Eyes EOMs intact bilaterally Neck full ROM and supple General: normal visual inspection Resp normal respiratory effort Effort and Inspection: able to speak in complete sentences GI non-tender Extremity normal to inspection General Extremity: edema Skin Wounds: wounds noted Neuro oriented x3 and CN's II-XII intact bilaterally Psych mental status grossly normal Appearance: grossly normal Debridement Note Debridement Note Post-Debridement Measurements and Additional Note: Post-Debridement Measurements/Treatment KIMBERLY - Nurse 1 - General Ulcer Assessment Start: 04/28/21 09:04 Freq: Status: Active Protocol: SHANTA Activity Type Activity Date Activity User E-Sign Co-Sign Detail Recorded Client Recorded Date Recorded By Document 04/28/21 09:04 WI [id number] 04/28/21 09:09 WI 04/28/21 09:04 - Today's Visit Information Type of service Follow-up Visit (Physician/LARD MIXER ) Arrival Mode Ambulatory Accompanied by self Patient Identification Verified (Name & Yes ) Height and Weight Body Mass Index (BMI) 31.4 BMI Classification Obese Vital Signs Temperature (97.8 F-99.1 F) 97 F L Temperature Source Temporal Pulse Location Monitor Respiratory Rate (12-18) 16 Respiratory rate source Observation Oxygen Delivery Method Room Air Source Monitor Position Sitting Blood Pressure Location Left Arm History Since Last Visit- (Skip if this is Patient's initial visit) Have you changed medications since your No last visit? Any new allergies or adverse reactions No Had a fall/change in ADL's that may No increase risk of falls Have you been in the hospital since your No last visit? Has dressing in place as prescribed Yes Has compression in place as prescribed Yes Has offloadiing in place as prescribed Yes Experienced any changes in pain level or No management Left Footwear Regular Shoe Right Footwear Regular Shoe KIMBERLY - Nurse 1 - General Ulcer Measurement Start: 04/28/21 09:04 Freq: Status: Active Protocol: Activity Type Activity Date Activity User E-Sign Co-Sign Detail Recorded Client Recorded Date Recorded By Document 04/28/21 09:04 WI [id number] 04/28/21 09:09 WI 04/28/21 09:04 Wound Center Nurse 1 #12 Medial Superior LLE -Current Size (cm) - Length 1.8 -Current Size (cm) - Width 2.0 -Current Size (cm) - Depth 0.2 -Total Square Cm 3.60 -Exudate Amt Small -Exudate Type Serosanguineous -Wound Margin Flat & Intact -Granulation Amt Medium (34-66%) -Granulation Quality Pale,[place] -Necrosis Amt Medium (34-66%) -Texture (Ara-wound Skin Appearance) Assessed -Moisture (Ara-wound Skin Appearance) Assessed -Color (Ara-wound Skin Appearance) Assessed -Temperature (Ara-wound Skin No Abnormality Appearance) (Pt Warm) -Tenderness on Palpation (Ara-wound No Skin Appearance) -Ulcer Cleansing Rinsed/ Irrigated with Saline -Foul Odor after Cleansing No -Anesthetic Used 4% Lidocaine Solution #11 Medial Inferior LLE -Current Size (cm) - Length 2.7 -Current Size (cm) - Width 4.4 -Current Size (cm) - Depth 0.3 -Total Square Cm 11.88 -Exudate Amt Medium -Exudate Type Serosanguineous -Wound Margin Flat & Intact -Granulation Amt Medium (34-66%) -Granulation Quality Pale,[place] -Necrosis Amt Medium (34-66%) -Necrotic Tissue Type Adherent Slough -Texture (Ara-wound Skin Appearance) Assessed -Moisture (Ara-wound Skin Appearance) Assessed -Color (Ara-wound Skin Appearance) Assessed -Temperature (Ara-wound Skin No Abnormality Appearance) (Pt Warm) -Tenderness on Palpation (Ara-wound No Skin Appearance) -Ulcer Cleansing Rinsed/ Irrigated with Saline -Foul Odor after Cleansing No -Anesthetic Used 5% Lidocaine Gel #10 Left Medial Ankle -Current Size (cm) - Length 5.6 -Current Size (cm) - Width 2.4 -Current Size (cm) - Depth 0.2 -Total Square Cm 13.44 -Exudate Amt Medium -Exudate Type Serosanguineous -Wound Margin Flat & Intact -Granulation Amt Medium (34-66%) -Granulation Quality Pale,[place] -Necrosis Amt Medium (34-66%) -Necrotic Tissue Type Adherent Slough -Texture (Ara-wound Skin Appearance) Assessed -Moisture (Ara-wound Skin Appearance) Assessed -Color (Ara-wound Skin Appearance) Assessed -Temperature (Ara-wound Skin No Abnormality Appearance) (Pt Warm) -Tenderness on Palpation (Ara-wound No Skin Appearance) -Ulcer Cleansing Rinsed/ Irrigated with Saline -Foul Odor after Cleansing No -Anesthetic Used 4% Lidocaine Solution Left Calf (cm) 33.1 Left Ankle (cm) 23 WC - Nurse 3 - General Ulcer D/C NN Start: 04/28/21 09:04 Freq: Status: Active Protocol: Activity Type Activity Date Activity User E-Sign Co-Sign Detail Recorded Client Recorded Date Recorded By Document 04/28/21 09:46 WI [id number] 04/28/21 09:47 WI 04/28/21 09:46 Wound Care Nurse 3 #12 Medial Superior LLE -Other Dressing pt brought own supplies -Primary Dressing Covered/Secured with Secured with Tape WC - Visit Discharge Discharge Condition Stable Ambulatory Status Ambulatory Transportation Private Auto Medication Reconcilliation completed & No provided to patient/care provider Clinical Summary of Care Provided Yes Wound debrided: Left lower extremity (ankle) Type of Debridement: Excisional debridement Anesthesia Used: 5% Lidocaine Gel Depth: Down to and including healthy tissue and in the subcutaneous layer Percentage of wound debrided: 100 Instrument Used: 5mm curette Tissue Removed: Slough and devitalized tissue Severity: Fat Layer Exposed Amount of bleeding with debridement: Mild Bleeding Controlled with: Pressure Patient tolerated procedure: Patient tolerated procedure well Additional Wound Wound debrided: Left lower extremity inferior Type of Debridement: Excisional debridement Anesthesia Used: 5% Lidocaine Gel Depth: Down to and including healthy tissue and in the subcutaneous layer Percentage of wound debrided: 100 Instrument Used: 5mm curette Tissue Removed: Slough and devitalized tissue Severity: Fat Layer Exposed Amount of bleeding with debridement: Mild Bleeding Controlled with: Pressure Patient tolerated procedure: Patient tolerated procedure well Additional Wound Wound debrided: Left lower extremity superior Type of Debridement: Excisional debridement Anesthesia Used: 5% Lidocaine Gel Depth: Down to and including healthy tissue and in the subcutaneous layer Percentage of wound debrided: 100 Instrument Used: 5mm curette Tissue Removed: Slough and devitalized tissue Severity: Fat Layer Exposed Amount of bleeding with debridement: Mild Bleeding Controlled with: Pressure Patient tolerated procedure: Patient tolerated procedure well Assessment/Plan Assessment/Plan (1) Ulcer of left lower extremity with fat layer exposed: CODE(S): L97.922 - Non-pressure chronic ulcer of unspecified part of left lower leg with fat layer exposed (2) PVD (peripheral vascular disease): CODE(S): I73.9 - Peripheral vascular disease, unspecified (3) Chronic venous insufficiency: CODE(S): I87.2 - Venous insufficiency (chronic) (peripheral) (4) Delayed wound healing: CODE(S): T14.8XXD - Other injury of unspecified body region, subsequent encounter PLAN: Debridement done as documented above, procedure was well-tolerated. Initial application of TheraSkin to left lower extremity (ankle) ulcer done today using 100% of product. Secured with Dermabond and covered with Adaptic touch. Will leave in place for 2 weeks however will follow-up in 1 week. continue Aquacel Ag and Keramax care to all other ulcers. Strongly advised to change dressing daily to twice daily due to drainage. Continue use of compression stockings, leg elevation and exercise. Increased protein intake , protein supplements, zinc and vitamin C also recommended. His questions were answered and he was advised to call with any further questions or concerns. Follow-up in 1 week This note was generated with [email or web address] dictation software. It may contain incorrect words, spelling, and punctuation that were not noted in checking the note before signing.
[2021-05-05 09:22] VITALS: BP 148/74; PULSE 82; RESP 18; TEMP 37; BMI 31.4
--- NOTE | 2021-05-05 11:00 | PCM.WC.PN ---
History of Present Illness Date of Service: 05/05/21 Chief Complaint: ulcers to the left lower leg History of Wound: This is a 54-year-old male presents to wound healing center with a long-standing history of chronic venous insufficiency, chronic venous hypertension, lower extremity edema, lower extremity pain, and chronic left lower extremity ulcer. 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 He is currently wearing graduated compression stockings which are documented to be 20-30 mmHg compression and these are thigh high. He reports great compliance with use. He is also had previous arterial work-up with no intervention recommended by letter, his vascular surgeon. He denies taking nutritional supplementation. He saw dermatology and had a biopsy of the ulcer site. He also was previously treated by infectious disease for various contaminations and infections. He is not antibiotics at this time nor does he have any redness or odor coming from the wound. He denies fever, chill, nausea, vomiting, loss of appetite. Subjective Subjective Has had 1 application of TheraSkin. Still in place and no concerns. He however has noted increased drainage,pain and redness from his other ulcers. Objective Data Objective Data Vital Signs: Vital Signs Temp Pulse Resp BP Pulse Ox 98.6 F 82 18 148/74 H 99 05/05/21 09:22 05/05/21 09:22 05/05/21 09:22 05/05/21 09:22 04/28/21 00:18 Oxygen Delivery Method Room Air Body Mass Index (BMI) 31.4 Charges/Coding Procedures Integumentary 111xxx-113xx: 79005 Lakeisha subq tissue 20 sq cm/< Add On Codes: 86426 Lakeisha subq tissue add-on Physical Exam Const alert, oriented x3 and no apparent distress General Appearance: cooperative and comfortable Orientation / Consciousness: awake HEENT normocephalic Head and Scalp: normal to inspection, normocephalic and atraumatic Face and Sinus: normal facial exam Eyes EOMs intact bilaterally Neck full ROM and supple General: normal visual inspection Resp normal respiratory effort Effort and Inspection: able to speak in complete sentences GI non-tender Extremity normal to inspection General Extremity: edema Skin Wounds: wounds noted Neuro oriented x3 and CN's II-XII intact bilaterally Psych mental status grossly normal Appearance: grossly normal Debridement Note Debridement Note Post-Debridement Measurements and Additional Note: Post-Debridement Measurements/Treatment - Nurse 1 - General Ulcer Assessment Start: 04/28/21 09:04 Freq: Status: Active Protocol: SHANTA Activity Type Activity Date Activity User E-Sign Co-Sign Detail Recorded Client Recorded Date Recorded By Document 04/28/21 09:04 MT [id number] 04/28/21 09:09 MT Document 05/05/21 09:22 RB [id number] 05/05/21 09:30 RB 04/28/21 05/05/21 09:04 09:22 - Today's Visit Information Type of service Follow-up Visit Follow-up Visit (Physician/PICKER PACKER (Physician/PICKER PACKER ) ) Arrival Mode Ambulatory Ambulatory Transfer Assistance None Accompanied by self Patient Identification Verified (Name & Yes Yes ) Patient Requires Transmission-Based No Precautions Height and Weight Body Mass Index (BMI) 31.4 31.4 BMI Classification Obese Obese Vital Signs Temperature (97.8 F-99.1 F) 97 F L 98.6 F Temperature Source Temporal Temporal Pulse Rate (60-100) 82 Pulse Location Monitor Monitor Respiratory Rate (12-18) 16 18 Respiratory rate source Observation Observation Oxygen Delivery Method Room Air Blood Pressure (90/60-120/80) 148/74 H Blood Pressure Mean (mm Hg) 98 Source Monitor Monitor Position Sitting Semi-Fowlers Blood Pressure Location Left Arm Left Arm History Since Last Visit- (Skip if this is Patient's initial visit) Have you changed medications since your No No last visit? Any new allergies or adverse reactions No No Had a fall/change in ADL's that may No No increase risk of falls Signs or symptoms of abuse and/or No neglect since last visit Have you been in the hospital since your No No last visit? Has dressing in place as prescribed Yes Yes Has compression in place as prescribed Yes Yes Has offloadiing in place as prescribed Yes No Experienced any changes in pain level or No No management Left Footwear Regular Shoe Regular Shoe Right Footwear Regular Shoe Regular Shoe Pain Scale: 0-10 Numeric Is Patient Pain Free? Yes - Nurse 1 - General Ulcer Measurement Start: 04/28/21 09:04 Freq: Status: Active Protocol: Activity Type Activity Date Activity User E-Sign Co-Sign Detail Recorded Client Recorded Date Recorded By Document 04/28/21 09:04 MT [id number] 04/28/21 09:09 MT Document 05/05/21 09:22 RB [id number] 05/05/21 09:30 RB 04/28/21 05/05/21 09:04 09:22 Wound Center Nurse 1 #12 Medial Superior LLE -Combined with other wound No -Current Size (cm) - Length 1.8 2.1 -Current Size (cm) - Width 2.0 1.8 -Current Size (cm) - Depth 0.2 0.2 -Total Square Cm 3.60 3.78 -Tunneling No -Undermining/Tunneling No -Circular Undermining No -Exudate Amt Small Large -Exudate Type Serosanguineous Serosanguineous -Wound Margin Flat & Intact Distinct, Outline Attached -Granulation Amt Medium (34-66%) Medium (34-66%) -Granulation Quality Pale,Middle Point Middle Point -Slough/Fibrin Yes -Necrosis Amt Medium (34-66%) Small (1-33%) -Necrotic Tissue Type Adherent Slough -Structure Exposed N/A -Texture (Ara-wound Skin Appearance) Assessed Assessed, Scarring -Moisture (Ara-wound Skin Appearance) Assessed Assessed -Color (Ara-wound Skin Appearance) Assessed Hemosiderin Staining -Temperature (Ara-wound Skin No Abnormality No Abnormality Appearance) (Pt Warm) (Pt Warm) -Tenderness on Palpation (Ara-wound No No Skin Appearance) -Ulcer Cleansing Rinsed/ Wound Cleanser Irrigated with Saline -Foul Odor after Cleansing No No -Anesthetic Used 4% Lidocaine 4% Lidocaine Solution Solution #11 Medial Inferior LLE -Combined with other wound No -Current Size (cm) - Length 2.7 4.4 -Current Size (cm) - Width 4.4 1.8 -Current Size (cm) - Depth 0.3 0.1 -Total Square Cm 11.88 7.92 -Tunneling No -Undermining/Tunneling No -Circular Undermining No -Exudate Amt Medium Medium -Exudate Type Serosanguineous Serosanguineous -Wound Margin Flat & Intact Distinct, Outline Attached -Granulation Amt Medium (34-66%) Medium (34-66%) -Granulation Quality Pale,Middle Point Middle Point,Red -Slough/Fibrin Yes -Necrosis Amt Medium (34-66%) Small (1-33%) -Necrotic Tissue Type Adherent Slough Adherent Slough -Structure Exposed N/A -Texture (Ara-wound Skin Appearance) Assessed Assessed, Scarring -Moisture (Ara-wound Skin Appearance) Assessed Assessed -Color (Ara-wound Skin Appearance) Assessed Hemosiderin Staining -Temperature (Ara-wound Skin No Abnormality No Abnormality Appearance) (Pt Warm) (Pt Warm) -Tenderness on Palpation (Ara-wound No No Skin Appearance) -Ulcer Cleansing Rinsed/ Wound Cleanser Irrigated with Saline -Foul Odor after Cleansing No No -Anesthetic Used 5% Lidocaine 4% Lidocaine Gel Solution #10 Left Medial Ankle -Current Size (cm) - Length 5.6 -Current Size (cm) - Width 2.4 -Current Size (cm) - Depth 0.2 -Total Square Cm 13.44 -Exudate Amt Medium -Exudate Type Serosanguineous -Wound Margin Flat & Intact -Granulation Amt Medium (34-66%) -Granulation Quality Pale,Middle Point -Necrosis Amt Medium (34-66%) -Necrotic Tissue Type Adherent Slough -Texture (Ara-wound Skin Appearance) Assessed -Moisture (Ara-wound Skin Appearance) Assessed -Color (Ara-wound Skin Appearance) Assessed -Temperature (Ara-wound Skin No Abnormality Appearance) (Pt Warm) -Tenderness on Palpation (Ara-wound No Skin Appearance) -Ulcer Cleansing Rinsed/ Irrigated with Saline -Foul Odor after Cleansing No -Anesthetic Used 4% Lidocaine Solution Lower Limb Edema Present Yes Left Calf (cm) 33.1 35.6 Left Ankle (cm) 23 23.2 WC - Nurse 2 - General Ulcer CM Notes Start: 04/28/21 09:04 Freq: Status: Active Protocol: Activity Type Activity Date Activity User E-Sign Co-Sign Detail Recorded Client Recorded Date Recorded By Document 04/28/21 09:57 PL [id number] 04/28/21 10:01 PL Document 05/05/21 09:53 MW [id number] 05/05/21 09:59 MW 04/28/21 05/05/21 09:57 09:53 Wound Center Nurse 2 #12 Medial Superior LLE -Time 09:17 09:53 -Correct Patient Yes Yes -Correct Side, Site, Position Yes Yes -Correct Procedure Yes Yes -Procedure Performed Yes Yes -Type of Procedure Debridement Debridement -Clinical Debridement Subcutaneous Subcutaneous -Tissue Removed Subcutaneous Subcutaneous -Post Debridement (cm) - Length 1.8 2.0 -Post Debridement (cm) - Width 2.3 2.0 -Post Debridement (cm) - Depth 0.1 0.1 -Total Square (Post) (cm) 4.14 4.00 -Area of Debridement (cm) - Length 1.8 2.0 -Area of Debridement (cm) - Width 2.3 2.0 -Total Square (Area) (cm) 4.14 4.00 -Tunneling No No -Undermining/Tunneling No No -Circular Undermining No No -Wound/Ulcer Outcome Not Healed Not Healed -Ulcer Cleansing Rinsed/ Rinsed/ Irrigated with Irrigated with Saline Saline -Foul Odor after Cleansing No No -Bioengineered Tissue No No -Bleeding Controlled with Pressure -Offloading No -Treatment Response Procedure Procedure Tolerated Well Tolerated Well -Debridement - Subq, 1st 20sq cm No Yes #11 Medial Inferior LLE -Time 09:17 09:54 -Correct Patient Yes Yes -Correct Side, Site, Position Yes Yes -Correct Procedure Yes Yes -Procedure Performed Yes Yes -Type of Procedure Debridement Debridement -Clinical Debridement Subcutaneous Subcutaneous -Tissue Removed Subcutaneous Subcutaneous -Post Debridement (cm) - Length 4 4.0 -Post Debridement (cm) - Width 4.5 5.0 -Post Debridement (cm) - Depth 0.2 0.2 -Total Square (Post) (cm) 18.0 20.00 -Area of Debridement (cm) - Length 4.0 4.0 -Area of Debridement (cm) - Width 4.5 5.0 -Total Square (Area) (cm) 18.00 20.00 -Tunneling No No -Undermining/Tunneling No No -Circular Undermining No No -Wound/Ulcer Outcome Not Healed Not Healed -Ulcer Cleansing Rinsed/ Rinsed/ Irrigated with Irrigated with Saline Saline -Foul Odor after Cleansing No No -Bioengineered Tissue No No -Bleeding Controlled with Pressure -Offloading No -Treatment Response Procedure Tolerated Well -Debridement - Subq, 1st 20sq cm No No #10 Left Medial Ankle -Time 09:17 09:54 -Correct Patient Yes Yes -Correct Side, Site, Position Yes Yes -Correct Procedure Yes Yes -Procedure Performed Yes No -Type of Procedure Debridement -Clinical Debridement Subcutaneous -Tissue Removed Subcutaneous -Post Debridement (cm) - Length 5.0 -Post Debridement (cm) - Width 3.3 -Post Debridement (cm) - Depth 0.3 -Total Square (Post) (cm) 16.50 -Area of Debridement (cm) - Length 5.0 -Area of Debridement (cm) - Width 3.3 -Total Square (Area) (cm) 16.50 -Tunneling No No -Undermining/Tunneling No No -Circular Undermining No No -Wound/Ulcer Outcome Not Healed Not Healed -Ulcer Cleansing Rinsed/ Irrigated with Saline -Foul Odor after Cleansing No -Bioengineered Tissue Yes -Type of Bioengineered Tissue Theraskin -Expiration Date 12/20/24 -Product Lot Number [id number] -Percent Used 100 -Lot number of Saline Used [id number] -Bleeding Controlled with Pressure NA -Offloading No -Treatment Response Procedure Tolerated Well -Debridement - Subq, 1st 20sq cm No -Apply Skin Sub - 1st 25 sq cm - Legs 1 -Theraskin (per sq cm) 26 Pain Scale: 0-10 Numeric Is Patient Pain Free? Yes Yes - Nurse 3 - General Ulcer D/C NN Start: 04/28/21 09:04 Freq: Status: Active Protocol: Activity Type Activity Date Activity User E-Sign Co-Sign Detail Recorded Client Recorded Date Recorded By Document 04/28/21 09:46 DC [id number] 04/28/21 09:47 DC Document 05/05/21 10:08 DC [id number] 05/05/21 10:08 DC 04/28/21 05/05/21 09:46 10:08 Wound Care Nurse 3 #12 Medial Superior LLE -Other Dressing pt brought own pt brings own supplies keramax and aquacel -Primary Dressing Covered/Secured with Secured with Tape WC - Visit Discharge Discharge Condition Stable Stable Ambulatory Status Ambulatory Ambulatory Transportation Private Auto Private Auto Medication Reconcilliation completed & No No provided to patient/care provider Clinical Summary of Care Provided Yes Yes Wound debrided: Left Lower extremity ( Inferior ) Type of Debridement: Excisional debridement Anesthesia Used: 4% Lidocaine Solution Depth: Down to and including healthy tissue and in the subcutaneous layer Percentage of wound debrided: 100 Instrument Used: 5mm curette Tissue Removed: Slough and devitalized tissue Severity: Fat Layer Exposed Amount of bleeding with debridement: Mild Bleeding Controlled with: Pressure Patient tolerated procedure: Patient tolerated procedure well Additional Wound Wound debrided: Left Lower Extremity ( Superior ) Type of Debridement: Excisional debridement Anesthesia Used: 4% Lidocaine Solution Depth: Down to and including healthy tissue and in the subcutaneous layer Percentage of wound debrided: 100 Instrument Used: 5mm curette Tissue Removed: Slough and devitalized tissue Severity: Fat Layer Exposed Amount of bleeding with debridement: Mild Bleeding Controlled with: Pressure Patient tolerated procedure: Patient tolerated procedure well Assessment/Plan Assessment/Plan (1) Ulcer of left lower extremity with fat layer exposed: CODE(S): L97.922 - Non-pressure chronic ulcer of unspecified part of left lower leg with fat layer exposed (2) PVD (peripheral vascular disease): CODE(S): I73.9 - Peripheral vascular disease, unspecified (3) Chronic venous insufficiency: CODE(S): I87.2 - Venous insufficiency (chronic) (peripheral) (4) Delayed wound healing: CODE(S): T14.8XXD - Other injury of unspecified body region, subsequent encounter PLAN: Debridement done as documented above, procedure was well-tolerated. Thera skin to ankle ulcer still in place. Continue Aquacel Ag and Keramax care to all other ulcers. Clean daily with Dakin's solution as well. Strongly advised to change dressing daily to twice daily due to drainage. Continue use of compression stockings, leg elevation and exercise. Increased protein intake , protein supplements, zinc and vitamin C also recommended. His questions were answered and he was advised to call with any further questions or concerns. Follow-up in 1 week This note was generated with [employer] dictation software. It may contain incorrect words, spelling, and punctuation that were not noted in checking the note before signing.
[2021-05-12 09:33] VITALS: BP 138/81; PULSE 75; RESP 20; TEMP 36.5; BMI 31.4
--- NOTE | 2021-05-12 10:43 | PCM.WC.PN ---
History of Present Illness Date of Service: 05/12/21 Chief Complaint: ulcers to the left lower leg History of Wound: This is a 54-year-old male presents to wound healing center with a long-standing history of chronic venous insufficiency, chronic venous hypertension, lower extremity edema, lower extremity pain, and chronic left lower extremity ulcer. The patient has previously undergone endovenous laser ablation of the left and right great saphenous vein, the small saphenous vein, the left accessory saphenous vein, and an incompetent left calf bed operator vein located 15 cm proximal to the left medial malleolus. He is currently wearing graduated compression stockings which are documented to be 20-30 mmHg compression and these are thigh high. He reports great compliance with use. He is also had previous arterial work-up with no intervention recommended by letter, his vascular surgeon. He denies taking nutritional supplementation. He saw dermatology and had a biopsy of the ulcer site. He also was previously treated by infectious disease for various contaminations and infections. He is not antibiotics at this time nor does he have any redness or odor coming from the wound. He denies fever, chill, nausea, vomiting, loss of appetite. Subjective Subjective Has had 1 application of TheraSkin. Was started on antibiotics last week due to increased drainage, redness and pain. These have improved. Objective Data Objective Data Vital Signs: Vital Signs Temp Pulse Resp BP Pulse Ox 97.7 F L 75 20 H 138/81 H 99 05/12/21 09:33 05/12/21 09:33 05/12/21 09:33 05/12/21 09:33 04/28/21 00:18 Oxygen Delivery Method Room Air Body Mass Index (BMI) 31.4 Charges/Coding Procedures Integumentary 111xxx-113xx: 55154 Lakeisha subq tissue 20 sq cm/< 150xxx-152xx: 87678 Skin sub graft trnk/arm/leg Add On Codes: 84122 Lakeisha subq tissue add-on Physical Exam Const alert, oriented x3 and no apparent distress General Appearance: cooperative and comfortable Orientation / Consciousness: awake HEENT normocephalic Head and Scalp: normal to inspection, normocephalic and atraumatic Face and Sinus: normal facial exam Eyes EOMs intact bilaterally Neck full ROM and supple General: normal visual inspection Resp normal respiratory effort Effort and Inspection: able to speak in complete sentences GI non-tender Extremity normal to inspection General Extremity: edema Skin Wounds: wounds noted Neuro oriented x3 and CN's II-XII intact bilaterally Psych mental status grossly normal Appearance: grossly normal Debridement Note Debridement Note Post-Debridement Measurements and Additional Note: Post-Debridement Measurements/Treatment - Nurse 1 - General Ulcer Assessment Start: 04/28/21 09:04 Freq: Status: Active Protocol: [email or web address] Activity Type Activity Date Activity User E-Sign Co-Sign Detail Recorded Client Recorded Date Recorded By Document 04/28/21 09:04 MT [id number] 04/28/21 09:09 MT Document 05/05/21 09:22 RB [id number] 05/05/21 09:30 RB Document 05/12/21 09:33 DL [id number] 05/12/21 09:49 DL 04/28/21 05/05/21 05/12/21 09:04 09:22 09:33 - Today's Visit Information Type of service Follow-up Visit Follow-up Visit Follow-up Visit (Physician/DIESEL ENGINE ASSEMBLER (Physician/DIESEL ENGINE ASSEMBLER (Physician/DIESEL ENGINE ASSEMBLER ) ) ) Arrival Mode Ambulatory Ambulatory Ambulatory Transfer Assistance None None Accompanied by self Patient Identification Verified (Name & Yes Yes Yes ) Patient Requires Transmission-Based No No Precautions Height and Weight Body Mass Index (BMI) 31.4 31.4 31.4 BMI Classification Obese Obese Obese Vital Signs Temperature (97.8 F-99.1 F) 97 F L 98.6 F 97.7 F L Temperature Source Temporal Temporal Temporal Pulse Rate (60-100) 82 75 Pulse Location Monitor Monitor Monitor Respiratory Rate (12-18) 16 18 20 H Respiratory rate source Observation Observation Observation Oxygen Delivery Method Room Air Blood Pressure (90/60-120/80) 148/74 H 138/81 H Blood Pressure Mean (mm Hg) 98 100 Source Monitor Monitor Monitor Position Sitting Semi-Fowlers Blood Pressure Location Left Arm Left Arm History Since Last Visit- (Skip if this is Patient's initial visit) Have you changed medications since your No No No last visit? Any new allergies or adverse reactions No No No Had a fall/change in ADL's that may No No No increase risk of falls Signs or symptoms of abuse and/or No No neglect since last visit Have you been in the hospital since your No No No last visit? Has dressing in place as prescribed Yes Yes Yes Has compression in place as prescribed Yes Yes Yes Has offloadiing in place as prescribed Yes No N/A Experienced any changes in pain level or No No management Left Footwear Regular Shoe Regular Shoe Regular Shoe Right Footwear Regular Shoe Regular Shoe Regular Shoe Pain Scale: 0-10 Numeric Is Patient Pain Free? Yes Yes WC - Nurse 1 - General Ulcer Measurement Start: 04/28/21 09:04 Freq: Status: Active Protocol: Activity Type Activity Date Activity User E-Sign Co-Sign Detail Recorded Client Recorded Date Recorded By Document 04/28/21 09:04 MT [id number] 04/28/21 09:09 MT Document 05/05/21 09:22 RB [id number] 05/05/21 09:30 RB Document 05/12/21 09:33 DL [id number] 05/12/21 09:49 DL 04/28/21 05/05/21 05/12/21 09:04 09:22 09:33 Wound Center Nurse 1 #12 Medial Superior LLE -Combined with other wound No -Current Size (cm) - Length 1.8 2.1 2 -Current Size (cm) - Width 2.0 1.8 1.8 -Current Size (cm) - Depth 0.2 0.2 0.2 -Total Square Cm 3.60 3.78 3.6 -Photo Taken No -Tunneling No -Undermining/Tunneling No -Circular Undermining No -Exudate Amt Small Large Medium -Exudate Type Serosanguineous Serosanguineous Serosanguineous -Wound Margin Flat & Intact Distinct, Distinct, Outline Outline Attached Attached -Granulation Amt Medium (34-66%) Medium (34-66%) Medium (34-66%) -Granulation Quality Pale,[place] -Slough/Fibrin Yes -Necrosis Amt Medium (34-66%) Small (1-33%) Medium (34-66%) -Necrotic Tissue Type Adherent Slough Eschar -Structure Exposed N/A N/A -Texture (Ara-wound Skin Appearance) Assessed Assessed, Scarring Scarring -Moisture (Ara-wound Skin Appearance) Assessed Assessed Dry/Scaly -Color (Ara-wound Skin Appearance) Assessed Hemosiderin Hemosiderin Staining Staining -Temperature (Ara-wound Skin No Abnormality No Abnormality No Abnormality Appearance) (Pt Warm) (Pt Warm) (Pt Warm) -Tenderness on Palpation (Ara-wound No No No Skin Appearance) -Ulcer Cleansing Rinsed/ Wound Cleanser Wound Cleanser Irrigated with Saline -Foul Odor after Cleansing No No No -Anesthetic Used 4% Lidocaine 4% Lidocaine 4% Lidocaine Solution Solution Solution #11 Medial Inferior LLE -Combined with other wound No -Current Size (cm) - Length 2.7 4.4 4.6 -Current Size (cm) - Width 4.4 1.8 4.6 -Current Size (cm) - Depth 0.3 0.1 0.2 -Total Square Cm 11.88 7.92 21.16 -Photo Taken No -Tunneling No -Undermining/Tunneling No -Circular Undermining No -Exudate Amt Medium Medium Medium -Exudate Type Serosanguineous Serosanguineous Serosanguineous -Wound Margin Flat & Intact Distinct, Distinct, Outline Outline Attached Attached -Granulation Amt Medium (34-66%) Medium (34-66%) Medium (34-66%) -Granulation Quality Pale,[place],Red -Slough/Fibrin Yes -Necrosis Amt Medium (34-66%) Small (1-33%) Medium (34-66%) -Necrotic Tissue Type Adherent Slough Adherent Slough Adherent Slough -Structure Exposed N/A N/A -Texture (Ara-wound Skin Appearance) Assessed Assessed, Scarring Scarring -Moisture (Ara-wound Skin Appearance) Assessed Assessed Dry/Scaly -Color (Ara-wound Skin Appearance) Assessed Hemosiderin Hemosiderin Staining Staining -Temperature (Ara-wound Skin No Abnormality No Abnormality No Abnormality Appearance) (Pt Warm) (Pt Warm) (Pt Warm) -Tenderness on Palpation (Ara-wound No No No Skin Appearance) -Ulcer Cleansing Rinsed/ Wound Cleanser Wound Cleanser Irrigated with Saline -Foul Odor after Cleansing No No No -Anesthetic Used 5% Lidocaine 4% Lidocaine 4% Lidocaine Gel Solution Solution #10 Left Medial Ankle -Current Size (cm) - Length 5.6 4.5 -Current Size (cm) - Width 2.4 5.1 -Current Size (cm) - Depth 0.2 0.3 -Total Square Cm 13.44 22.95 -Photo Taken No -Exudate Amt Medium Medium -Exudate Type Serosanguineous Serosanguineous -Wound Margin Flat & Intact Fibrotic Scar, Thickened Scar -Granulation Amt Medium (34-66%) Medium (34-66%) -Granulation Quality Pale,[place] Red -Necrosis Amt Medium (34-66%) Medium (34-66%) -Necrotic Tissue Type Adherent Slough Adherent Slough -Structure Exposed N/A -Texture (Ara-wound Skin Appearance) Assessed Scarring -Moisture (Ara-wound Skin Appearance) Assessed Dry/Scaly -Color (Ara-wound Skin Appearance) Assessed Hemosiderin Staining -Temperature (Ara-wound Skin No Abnormality No Abnormality Appearance) (Pt Warm) (Pt Warm) -Tenderness on Palpation (Ara-wound No No Skin Appearance) -Ulcer Cleansing Rinsed/ Wound Cleanser Irrigated with Saline -Foul Odor after Cleansing No No -Anesthetic Used 4% Lidocaine 4% Lidocaine Solution Solution Lower Limb Edema Present Yes Left Calf (cm) 33.1 35.6 38.5 Left Ankle (cm) 23 23.2 34 WC - Nurse 2 - General Ulcer CM Notes Start: 04/28/21 09:04 Freq: Status: Active Protocol: Activity Type Activity Date Activity User E-Sign Co-Sign Detail Recorded Client Recorded Date Recorded By Document 04/28/21 09:57 PL [id number] 04/28/21 10:01 PL Document 05/05/21 09:53 MW [id number] 05/05/21 09:59 MW Edit Result 05/05/21 09:53 MW (1) [id number] 05/06/21 06:20 PL Document 05/12/21 10:07 MW [id number] 05/12/21 10:22 MW (1) #12 Medial Superior LLE - Debridement, SubQ, ea addt'l 20sq cm => 1 or part thereof 04/28/21 05/05/21 05/12/21 09:57 09:53 10:07 Wound Center Nurse 2 #12 Medial Superior LLE -Time 09:17 09:53 10:07 -Correct Patient Yes Yes Yes -Correct Side, Site, Position Yes Yes Yes -Correct Procedure Yes Yes Yes -Procedure Performed Yes Yes Yes -Type of Procedure Debridement Debridement Debridement -Clinical Debridement Subcutaneous Subcutaneous Subcutaneous -Tissue Removed Subcutaneous Subcutaneous Subcutaneous -Post Debridement (cm) - Length 1.8 2.0 2.0 -Post Debridement (cm) - Width 2.3 2.0 2.0 -Post Debridement (cm) - Depth 0.1 0.1 0.1 -Total Square (Post) (cm) 4.14 4.00 4.00 -Area of Debridement (cm) - Length 1.8 2.0 2.0 -Area of Debridement (cm) - Width 2.3 2.0 2.0 -Total Square (Area) (cm) 4.14 4.00 4.00 -Tunneling No No No -Undermining/Tunneling No No No -Circular Undermining No No No -Wound/Ulcer Outcome Not Healed Not Healed Not Healed -Ulcer Cleansing Rinsed/ Rinsed/ Rinsed/ Irrigated with Irrigated with Irrigated with Saline Saline Saline -Foul Odor after Cleansing No No No -Bioengineered Tissue No No No -Bleeding Controlled with Pressure Pressure -Offloading No No -Treatment Response Procedure Procedure Procedure Tolerated Well Tolerated Well Tolerated Well -Debridement - Subq, 1st 20sq cm No Yes Yes -Debridement, SubQ, ea addt'l 20sq cm 1 or part thereof #11 Medial Inferior LLE -Time 09:17 09:54 10:08 -Correct Patient Yes Yes Yes -Correct Side, Site, Position Yes Yes Yes -Correct Procedure Yes Yes Yes -Procedure Performed Yes Yes Yes -Type of Procedure Debridement Debridement Debridement -Clinical Debridement Subcutaneous Subcutaneous Subcutaneous -Tissue Removed Subcutaneous Subcutaneous Subcutaneous -Post Debridement (cm) - Length 4 4.0 4.0 -Post Debridement (cm) - Width 4.5 5.0 5.0 -Post Debridement (cm) - Depth 0.2 0.2 0.2 -Total Square (Post) (cm) 18.0 20.00 20.00 -Area of Debridement (cm) - Length 4.0 4.0 4.0 -Area of Debridement (cm) - Width 4.5 5.0 5.0 -Total Square (Area) (cm) 18.00 20.00 20.00 -Tunneling No No No -Undermining/Tunneling No No No -Circular Undermining No No No -Wound/Ulcer Outcome Not Healed Not Healed Not Healed -Ulcer Cleansing Rinsed/ Rinsed/ Rinsed/ Irrigated with Irrigated with Irrigated with Saline Saline Saline -Foul Odor after Cleansing No No No -Bioengineered Tissue No No No -Bleeding Controlled with Pressure Pressure -Offloading No No -Treatment Response Procedure Procedure Tolerated Well Tolerated Well -Debridement - Subq, 1st 20sq cm No No No #10 Left Medial Ankle -Time 09:17 09:54 10:08 -Correct Patient Yes Yes Yes -Correct Side, Site, Position Yes Yes Yes -Correct Procedure Yes Yes Yes -Procedure Performed Yes No Yes -Type of Procedure Debridement Debridement -Clinical Debridement Subcutaneous Subcutaneous -Tissue Removed Subcutaneous Subcutaneous -Post Debridement (cm) - Length 5.0 4.5 -Post Debridement (cm) - Width 3.3 3.8 -Post Debridement (cm) - Depth 0.3 0.2 -Total Square (Post) (cm) 16.50 17.10 -Area of Debridement (cm) - Length 5.0 4.5 -Area of Debridement (cm) - Width 3.3 3.8 -Total Square (Area) (cm) 16.50 17.10 -Tunneling No No No -Undermining/Tunneling No No No -Circular Undermining No No No -Wound/Ulcer Outcome Not Healed Not Healed Not Healed -Ulcer Cleansing Rinsed/ Rinsed/ Irrigated with Irrigated with Saline Saline -Foul Odor after Cleansing No No -Bioengineered Tissue Yes Yes -Type of Bioengineered Tissue Theraskin Theraskin -Expiration Date 12/20/24 12/29/24 -Product Lot Number [id number] -Percent Used 100 100 -Lot number of Saline Used [id number] -Bleeding Controlled with Pressure NA Pressure -Offloading No No -Treatment Response Procedure Procedure Tolerated Well Tolerated Well -Debridement - Subq, 1st 20sq cm No No -Apply Skin Sub - 1st 25 sq cm - Legs 1 1 -Theraskin (per sq cm) 26 26 Pain Scale: 0-10 Numeric Is Patient Pain Free? Yes Yes Yes - Nurse 3 - General Ulcer D/C NN Start: 04/28/21 09:04 Freq: Status: Active Protocol: Activity Type Activity Date Activity User E-Sign Co-Sign Detail Recorded Client Recorded Date Recorded By Document 04/28/21 09:46 MT [id number] 04/28/21 09:47 MT Document 05/05/21 10:08 MT [id number] 05/05/21 10:08 MT Document 05/12/21 10:29 DL [id number] 05/12/21 10:32 DL 04/28/21 05/05/21 05/12/21 09:46 10:08 10:29 Wound Care Nurse 3 #12 Medial Superior LLE -Ulcer Cleansing Rinsed/ Irrigated with Saline -Foul Odor after Cleansing No -Primary Dressing Applied Aquacel AG 4x4 -Other Dressing pt brought own pt brings own supplies keramax and aquacel -Primary Dressing Covered/Secured with Secured with Dry Gauze, Tape Secured with Tape -Aquacel AG 4x4 1 #11 Medial Inferior LLE -Ulcer Cleansing Wound Cleanser -Foul Odor after Cleansing No -Other Dressing aqaucel ag/ KerraMax -Primary Dressing Covered/Secured with Dry Gauze, Secured with Tape #10 Left Medial Ankle -Foul Odor after Cleansing No -Other Dressing Theraskin -Primary Dressing Covered/Secured with Dry Gauze, Secured with Tape -Other Covering KerraMax Left -Stockings Yes Right -Stockings Yes Treatment Response Procedure Tolerated Well Pain Scale: 0-10 Numeric Is Patient Pain Free? Yes WC - Visit Discharge Discharge Condition Stable Stable Stable Ambulatory Status Ambulatory Ambulatory Ambulatory Transportation Private Auto Private Auto Private Auto Medication Reconcilliation completed & No No provided to patient/care provider Clinical Summary of Care Provided Yes Yes Wound debrided: Left ankle (medial) Type of Debridement: Excisional debridement Anesthesia Used: 4% Lidocaine Solution Depth: Down to and including healthy tissue and in the subcutaneous layer Percentage of wound debrided: 100 Instrument Used: 5mm curette Tissue Removed: Slough and devitalized tissue Severity: Fat Layer Exposed Amount of bleeding with debridement: Mild Bleeding Controlled with: Pressure Patient tolerated procedure: Patient tolerated procedure well Additional Wound Wound Grade/Stage: Left lower extremity inferior Type of Debridement: Excisional debridement Anesthesia Used: 5% Lidocaine Gel Depth: Down to and including healthy tissue and in the subcutaneous layer Percentage of wound debrided: 100 Instrument Used: 5mm curette Tissue Removed: Slough and devitalized tissue Severity: Fat Layer Exposed Amount of bleeding with debridement: Mild Bleeding Controlled with: Pressure Patient tolerated procedure: Patient tolerated procedure well Additional Wound Wound debrided: Left lower extremity ( Superior ) Type of Debridement: Excisional debridement Anesthesia Used: 4% Lidocaine Solution Depth: Down to and including healthy tissue and in the subcutaneous layer Percentage of wound debrided: 100 Instrument Used: 5mm curette Tissue Removed: Slough and devitalized tissue Severity: Fat Layer Exposed Amount of bleeding with debridement: Mild Bleeding Controlled with: Pressure Patient tolerated procedure: Patient tolerated procedure well Assessment/Plan Assessment/Plan (1) Ulcer of left lower extremity with fat layer exposed: CODE(S): L97.922 - Non-pressure chronic ulcer of unspecified part of left lower leg with fat layer exposed (2) PVD (peripheral vascular disease): CODE(S): I73.9 - Peripheral vascular disease, unspecified (3) Chronic venous insufficiency: CODE(S): I87.2 - Venous insufficiency (chronic) (peripheral) (4) Delayed wound healing: CODE(S): T14.8XXD - Other injury of unspecified body region, subsequent encounter PLAN: Debridement done as documented above, procedure was well-tolerated. 2nd application of Thera Skin to left lower extremity (ankle) ulcer done today using 100% of product. Secured with Dermabond and covered with Adaptic touch. Will leave in place for 2 weeks however will follow-up in 1 week. continue Aquacel Ag and Keramax care to all other ulcers. Strongly advised to change dressing daily to twice daily due to drainage. Continue use of compression stockings, leg elevation and exercise. Increased protein intake , protein supplements, zinc and vitamin C also recommended. His questions were answered and he was advised to call with any further questions or concerns. Follow-up in 1 week This note was generated with [employer] dictation software. It may contain incorrect words, spelling, and punctuation that were not noted in checking the note before signing.
[2021-05-19 10:34] VITALS: BP 147/90; PULSE 90; RESP 18; TEMP 36.3; BMI 31.4
--- NOTE | 2021-05-19 12:44 | PCM.WC.PN ---
History of Present Illness Date of Service: 05/19/21 Chief Complaint: ulcers to the left lower leg History of Wound: This is a 54-year-old male presents to wound healing center with a long-standing history of chronic venous insufficiency, chronic venous hypertension, lower extremity edema, lower extremity pain, and chronic left lower extremity ulcer. The patient has previously undergone endovenous laser ablation of the left and right great saphenous vein, the small saphenous vein, the left accessory saphenous vein, and an incompetent left calf dumper vein located 15 cm proximal to the left medial malleolus. He is currently wearing graduated compression stockings which are documented to be 20-30 mmHg compression and these are thigh high. He reports great compliance with use. He is also had previous arterial work-up with no intervention recommended by letter, his vascular surgeon. He denies taking nutritional supplementation. He saw dermatology and had a biopsy of the ulcer site. He also was previously treated by infectious disease for various contaminations and infections. He is not antibiotics at this time nor does he have any redness or odor coming from the wound. He denies fever, chill, nausea, vomiting, loss of appetite. Subjective Subjective Has had 2 applications of TheraSkin to left medial ankle ulcer. Denies any new concerns at this time Objective Data Objective Data Vital Signs: Vital Signs Temp Pulse Resp BP Pulse Ox 97.3 F L 90 18 147/90 H 99 05/19/21 10:34 05/19/21 10:34 05/19/21 10:34 05/19/21 10:34 04/28/21 00:18 Oxygen Delivery Method Room Air Body Mass Index (BMI) 31.4 Charges/Coding Procedures Integumentary 111xxx-113xx: [id number] Lakeisha subq tissue 20 sq cm/< Add On Codes: 66918 Lakeisha subq tissue add-on (X4) Physical Exam Const alert, oriented x3 and no apparent distress General Appearance: cooperative and comfortable Orientation / Consciousness: awake HEENT normocephalic Head and Scalp: normal to inspection, normocephalic and atraumatic Face and Sinus: normal facial exam Eyes EOMs intact bilaterally Neck full ROM and supple General: normal visual inspection Resp normal respiratory effort Effort and Inspection: able to speak in complete sentences GI non-tender Extremity normal to inspection General Extremity: edema Skin Wounds: wounds noted Neuro oriented x3 and CN's II-XII intact bilaterally Psych mental status grossly normal Appearance: grossly normal Debridement Note Debridement Note Post-Debridement Measurements and Additional Note: Post-Debridement Measurements/Treatment WC - Nurse 1 - General Ulcer Assessment Start: 04/28/21 09:04 Freq: Status: Active Protocol: SHANTA Activity Type Activity Date Activity User E-Sign Co-Sign Detail Recorded Client Recorded Date Recorded By Document 04/28/21 09:04 MT [id number] 04/28/21 09:09 MT Document 05/05/21 09:22 RB [id number] 05/05/21 09:30 RB Document 05/12/21 09:33 DL [id number] 05/12/21 09:49 DL Document 05/19/21 10:34 DL [id number] 05/19/21 10:41 DL 04/28/21 05/05/21 05/12/21 09:04 09:22 09:33 - Today's Visit Information Type of service Follow-up Visit Follow-up Visit Follow-up Visit (Physician/TECHNICAL ACCOUNT EXECUTIVE (Physician/TECHNICAL ACCOUNT EXECUTIVE (Physician/TECHNICAL ACCOUNT EXECUTIVE ) ) ) Arrival Mode Ambulatory Ambulatory Ambulatory Transfer Assistance None None Accompanied by self Patient Identification Verified (Name & Yes Yes Yes ) Patient Requires Transmission-Based No No Precautions Height and Weight Body Mass Index (BMI) 31.4 31.4 31.4 BMI Classification Obese Obese Obese Vital Signs Temperature (97.8 F-99.1 F) 97 F L 98.6 F 97.7 F L Temperature Source Temporal Temporal Temporal Pulse Rate (60-100) 82 75 Pulse Location Monitor Monitor Monitor Respiratory Rate (12-18) 16 18 20 H Respiratory rate source Observation Observation Observation Oxygen Delivery Method Room Air Blood Pressure (90/60-120/80) 148/74 H 138/81 H Blood Pressure Mean (mm Hg) 98 100 Source Monitor Monitor Monitor Position Sitting Semi-Fowlers Blood Pressure Location Left Arm Left Arm History Since Last Visit- (Skip if this is Patient's initial visit) Have you changed medications since your No No No last visit? Any new allergies or adverse reactions No No No Had a fall/change in ADL's that may No No No increase risk of falls Signs or symptoms of abuse and/or No No neglect since last visit Have you been in the hospital since your No No No last visit? Has dressing in place as prescribed Yes Yes Yes Has compression in place as prescribed Yes Yes Yes Has offloadiing in place as prescribed Yes No N/A Experienced any changes in pain level or No No management Left Footwear Regular Shoe Regular Shoe Regular Shoe Right Footwear Regular Shoe Regular Shoe Regular Shoe Pain Scale: 0-10 Numeric Is Patient Pain Free? Yes Yes 05/19/21 10:34 - Today's Visit Information Type of service Follow-up Visit (Physician/TECHNICAL ACCOUNT EXECUTIVE ) Arrival Mode Ambulatory Transfer Assistance None Accompanied by Patient Identification Verified (Name & Yes ) Patient Requires Transmission-Based No Precautions Height and Weight Body Mass Index (BMI) 31.4 BMI Classification Obese Vital Signs Temperature (97.8 F-99.1 F) 97.3 F L Temperature Source Temporal Pulse Rate (60-100) 90 Pulse Location Monitor Respiratory Rate (12-18) 18 Respiratory rate source Observation Oxygen Delivery Method Blood Pressure (90/60-120/80) 147/90 H Blood Pressure Mean (mm Hg) 109 Source Monitor Position Blood Pressure Location History Since Last Visit- (Skip if this is Patient's initial visit) Have you changed medications since your No last visit? Any new allergies or adverse reactions No Had a fall/change in ADL's that may No increase risk of falls Signs or symptoms of abuse and/or No neglect since last visit Have you been in the hospital since your No last visit? Has dressing in place as prescribed Yes Has compression in place as prescribed Yes Has offloadiing in place as prescribed N/A Experienced any changes in pain level or No management Left Footwear Right Footwear Pain Scale: 0-10 Numeric Is Patient Pain Free? Yes - Nurse 1 - General Ulcer Measurement Start: 04/28/21 09:04 Freq: Status: Active Protocol: Activity Type Activity Date Activity User E-Sign Co-Sign Detail Recorded Client Recorded Date Recorded By Document 04/28/21 09:04 MT [id number] 04/28/21 09:09 MT Document 05/05/21 09:22 RB [id number] 05/05/21 09:30 RB Document 05/12/21 09:33 DL [id number] 05/12/21 09:49 DL Document 05/19/21 10:34 DL [id number] 05/19/21 10:41 DL 04/28/21 05/05/21 05/12/21 09:04 09:22 09:33 Wound Center Nurse 1 #12 Medial Superior LLE -Combined with other wound No -Current Size (cm) - Length 1.8 2.1 2 -Current Size (cm) - Width 2.0 1.8 1.8 -Current Size (cm) - Depth 0.2 0.2 0.2 -Total Square Cm 3.60 3.78 3.6 -Photo Taken No -Tunneling No -Undermining/Tunneling No -Circular Undermining No -Exudate Amt Small Large Medium -Exudate Type Serosanguineous Serosanguineous Serosanguineous -Wound Margin Flat & Intact Distinct, Distinct, Outline Outline Attached Attached -Granulation Amt Medium (34-66%) Medium (34-66%) Medium (34-66%) -Granulation Quality Pale,Ridgeside Ridgeside -Slough/Fibrin Yes -Necrosis Amt Medium (34-66%) Small (1-33%) Medium (34-66%) -Necrotic Tissue Type Adherent Slough Eschar -Structure Exposed N/A N/A -Texture (Ara-wound Skin Appearance) Assessed Assessed, Scarring Scarring -Moisture (Ara-wound Skin Appearance) Assessed Assessed Dry/Scaly -Color (Ara-wound Skin Appearance) Assessed Hemosiderin Hemosiderin Staining Staining -Temperature (Ara-wound Skin No Abnormality No Abnormality No Abnormality Appearance) (Pt Warm) (Pt Warm) (Pt Warm) -Tenderness on Palpation (Ara-wound No No No Skin Appearance) -Ulcer Cleansing Rinsed/ Wound Cleanser Wound Cleanser Irrigated with Saline -Foul Odor after Cleansing No No No -Anesthetic Used 4% Lidocaine 4% Lidocaine 4% Lidocaine Solution Solution Solution #11 Medial Inferior LLE -Combined with other wound No -Current Size (cm) - Length 2.7 4.4 4.6 -Current Size (cm) - Width 4.4 1.8 4.6 -Current Size (cm) - Depth 0.3 0.1 0.2 -Total Square Cm 11.88 7.92 21.16 -Photo Taken No -Tunneling No -Undermining/Tunneling No -Circular Undermining No -Exudate Amt Medium Medium Medium -Exudate Type Serosanguineous Serosanguineous Serosanguineous -Wound Margin Flat & Intact Distinct, Distinct, Outline Outline Attached Attached -Granulation Amt Medium (34-66%) Medium (34-66%) Medium (34-66%) -Granulation Quality Pale,Ridgeside Ridgeside,Red -Slough/Fibrin Yes -Necrosis Amt Medium (34-66%) Small (1-33%) Medium (34-66%) -Necrotic Tissue Type Adherent Slough Adherent Slough Adherent Slough -Structure Exposed N/A N/A -Texture (Ara-wound Skin Appearance) Assessed Assessed, Scarring Scarring -Moisture (Ara-wound Skin Appearance) Assessed Assessed Dry/Scaly -Color (Ara-wound Skin Appearance) Assessed Hemosiderin Hemosiderin Staining Staining -Temperature (Ara-wound Skin No Abnormality No Abnormality No Abnormality Appearance) (Pt Warm) (Pt Warm) (Pt Warm) -Tenderness on Palpation (Ara-wound No No No Skin Appearance) -Ulcer Cleansing Rinsed/ Wound Cleanser Wound Cleanser Irrigated with Saline -Foul Odor after Cleansing No No No -Anesthetic Used 5% Lidocaine 4% Lidocaine 4% Lidocaine Gel Solution Solution #10 Left Medial Ankle -Current Size (cm) - Length 5.6 4.5 -Current Size (cm) - Width 2.4 5.1 -Current Size (cm) - Depth 0.2 0.3 -Total Square Cm 13.44 22.95 -Photo Taken No -Exudate Amt Medium Medium -Exudate Type Serosanguineous Serosanguineous -Wound Margin Flat & Intact Fibrotic Scar, Thickened Scar -Granulation Amt Medium (34-66%) Medium (34-66%) -Granulation Quality Pale,Ridgeside Red -Necrosis Amt Medium (34-66%) Medium (34-66%) -Necrotic Tissue Type Adherent Slough Adherent Slough -Structure Exposed N/A -Texture (Ara-wound Skin Appearance) Assessed Scarring -Moisture (Ara-wound Skin Appearance) Assessed Dry/Scaly -Color (Ara-wound Skin Appearance) Assessed Hemosiderin Staining -Temperature (Ara-wound Skin No Abnormality No Abnormality Appearance) (Pt Warm) (Pt Warm) -Tenderness on Palpation (Ara-wound No No Skin Appearance) -Ulcer Cleansing Rinsed/ Wound Cleanser Irrigated with Saline -Foul Odor after Cleansing No No -Anesthetic Used 4% Lidocaine 4% Lidocaine Solution Solution Lower Limb Edema Present Yes Left Calf (cm) 33.1 35.6 38.5 Left Ankle (cm) 23 23.2 34 05/19/21 10:34 Wound Center Nurse 1 #12 Medial Superior LLE -Combined with other wound -Current Size (cm) - Length 1.8 -Current Size (cm) - Width 1.8 -Current Size (cm) - Depth 0.2 -Total Square Cm 3.24 -Photo Taken No -Tunneling -Undermining/Tunneling -Circular Undermining -Exudate Amt Small -Exudate Type Serosanguineous -Wound Margin Distinct, Outline Attached -Granulation Amt Large (67-100%) -Granulation Quality Red -Slough/Fibrin -Necrosis Amt Small (1-33%) -Necrotic Tissue Type Adherent Slough -Structure Exposed N/A -Texture (Ara-wound Skin Appearance) Scarring -Moisture (Ara-wound Skin Appearance) Dry/Scaly -Color (Ara-wound Skin Appearance) Hemosiderin Staining -Temperature (Ara-wound Skin No Abnormality Appearance) (Pt Warm) -Tenderness on Palpation (Ara-wound No Skin Appearance) -Ulcer Cleansing Rinsed/ Irrigated with Saline -Foul Odor after Cleansing No -Anesthetic Used 4% Lidocaine Solution #11 Medial Inferior LLE -Combined with other wound -Current Size (cm) - Length 4.7 -Current Size (cm) - Width 4.7 -Current Size (cm) - Depth 0.2 -Total Square Cm 22.09 -Photo Taken No -Tunneling -Undermining/Tunneling -Circular Undermining -Exudate Amt Small -Exudate Type Serosanguineous -Wound Margin Distinct, Outline Attached -Granulation Amt Large (67-100%) -Granulation Quality Red -Slough/Fibrin -Necrosis Amt Small (1-33%) -Necrotic Tissue Type Adherent Slough -Structure Exposed N/A -Texture (Ara-wound Skin Appearance) Scarring -Moisture (Ara-wound Skin Appearance) Dry/Scaly -Color (Ara-wound Skin Appearance) Hemosiderin Staining -Temperature (Ara-wound Skin No Abnormality Appearance) (Pt Warm) -Tenderness on Palpation (Ara-wound No Skin Appearance) -Ulcer Cleansing Rinsed/ Irrigated with Saline -Foul Odor after Cleansing -Anesthetic Used 4% Lidocaine Solution, Cetacaine #10 Left Medial Ankle -Current Size (cm) - Length 4.5 -Current Size (cm) - Width 4.6 -Current Size (cm) - Depth 0.3 -Total Square Cm 20.70 -Photo Taken No -Exudate Amt Medium -Exudate Type Serosanguineous -Wound Margin Distinct, Outline Attached -Granulation Amt -Granulation Quality -Necrosis Amt -Necrotic Tissue Type -Structure Exposed -Texture (Ara-wound Skin Appearance) Scarring -Moisture (Ara-wound Skin Appearance) Dry/Scaly -Color (Ara-wound Skin Appearance) Hemosiderin Staining -Temperature (Ara-wound Skin No Abnormality Appearance) (Pt Warm) -Tenderness on Palpation (Ara-wound No Skin Appearance) -Ulcer Cleansing theraskin recheck -Foul Odor after Cleansing No -Anesthetic Used Lower Limb Edema Present Left Calf (cm) Left Ankle (cm) WC - Nurse 2 - General Ulcer CM Notes Start: 04/28/21 09:04 Freq: Status: Active Protocol: Activity Type Activity Date Activity User E-Sign Co-Sign Detail Recorded Client Recorded Date Recorded By Document 04/28/21 09:57 PL [id number] 04/28/21 10:01 PL Document 05/05/21 09:53 MW [id number] 05/05/21 09:59 MW Edit Result 05/05/21 09:53 MW (1) [id number] 05/06/21 06:20 PL Document 05/12/21 10:07 MW [id number] 05/12/21 10:22 MW Document 05/19/21 10:51 MW [id number] 05/19/21 10:57 MW (1) #12 Medial Superior LLE - Debridement, SubQ, ea addt'l 20sq cm => 1 or part thereof 04/28/21 05/05/21 05/12/21 09:57 09:53 10:07 Wound Center Nurse 2 #12 Medial Superior LLE -Time 09:17 09:53 10:07 -Correct Patient Yes Yes Yes -Correct Side, Site, Position Yes Yes Yes -Correct Procedure Yes Yes Yes -Procedure Performed Yes Yes Yes -Type of Procedure Debridement Debridement Debridement -Clinical Debridement Subcutaneous Subcutaneous Subcutaneous -Tissue Removed Subcutaneous Subcutaneous Subcutaneous -Post Debridement (cm) - Length 1.8 2.0 2.0 -Post Debridement (cm) - Width 2.3 2.0 2.0 -Post Debridement (cm) - Depth 0.1 0.1 0.1 -Total Square (Post) (cm) 4.14 4.00 4.00 -Area of Debridement (cm) - Length 1.8 2.0 2.0 -Area of Debridement (cm) - Width 2.3 2.0 2.0 -Total Square (Area) (cm) 4.14 4.00 4.00 -Tunneling No No No -Undermining/Tunneling No No No -Circular Undermining No No No -Wound/Ulcer Outcome Not Healed Not Healed Not Healed -Ulcer Cleansing Rinsed/ Rinsed/ Rinsed/ Irrigated with Irrigated with Irrigated with Saline Saline Saline -Foul Odor after Cleansing No No No -Bioengineered Tissue No No No -Bleeding Controlled with Pressure Pressure -Offloading No No -Treatment Response Procedure Procedure Procedure Tolerated Well Tolerated Well Tolerated Well -Debridement - Subq, 1st 20sq cm No Yes Yes -Debridement, SubQ, ea addt'l 20sq cm 1 or part thereof #11 Medial Inferior LLE -Time : 09:54 10:08 -Correct Patient Yes Yes Yes -Correct Side, Site, Position Yes Yes Yes -Correct Procedure Yes Yes Yes -Procedure Performed Yes Yes Yes -Type of Procedure Debridement Debridement Debridement -Clinical Debridement Subcutaneous Subcutaneous Subcutaneous -Tissue Removed Subcutaneous Subcutaneous Subcutaneous -Post Debridement (cm) - Length 4 4.0 4.0 -Post Debridement (cm) - Width 4.5 5.0 5.0 -Post Debridement (cm) - Depth 0.2 0.2 0.2 -Total Square (Post) (cm) 18.0 20.00 20.00 -Area of Debridement (cm) - Length 4.0 4.0 4.0 -Area of Debridement (cm) - Width 4.5 5.0 5.0 -Total Square (Area) (cm) 18.00 20.00 20.00 -Tunneling No No No -Undermining/Tunneling No No No -Circular Undermining No No No -Wound/Ulcer Outcome Not Healed Not Healed Not Healed -Ulcer Cleansing Rinsed/ Rinsed/ Rinsed/ Irrigated with Irrigated with Irrigated with Saline Saline Saline -Foul Odor after Cleansing No No No -Bioengineered Tissue No No No -Bleeding Controlled with Pressure Pressure -Offloading No No -Treatment Response Procedure Procedure Tolerated Well Tolerated Well -Debridement - Subq, 1st 20sq cm No No No #10 Left Medial Ankle -Time : 09:54 10:08 -Correct Patient Yes Yes Yes -Correct Side, Site, Position Yes Yes Yes -Correct Procedure Yes Yes Yes -Procedure Performed Yes No Yes -Type of Procedure Debridement Debridement -Clinical Debridement Subcutaneous Subcutaneous -Tissue Removed Subcutaneous Subcutaneous -Post Debridement (cm) - Length 5.0 4.5 -Post Debridement (cm) - Width 3.3 3.8 -Post Debridement (cm) - Depth 0.3 0.2 -Total Square (Post) (cm) 16.50 17.10 -Area of Debridement (cm) - Length 5.0 4.5 -Area of Debridement (cm) - Width 3.3 3.8 -Total Square (Area) (cm) 16.50 17.10 -Tunneling No No No -Undermining/Tunneling No No No -Circular Undermining No No No -Wound/Ulcer Outcome Not Healed Not Healed Not Healed -Ulcer Cleansing Rinsed/ Rinsed/ Irrigated with Irrigated with Saline Saline -Foul Odor after Cleansing No No -Bioengineered Tissue Yes Yes -Type of Bioengineered Tissue Theraskin Theraskin -Expiration Date 12/20/24 12/29/24 -Product Lot Number [id number] -Percent Used 100 100 -Lot number of Saline Used [id number] -Bleeding Controlled with Pressure NA Pressure -Offloading No No -Treatment Response Procedure Procedure Tolerated Well Tolerated Well -Debridement - Subq, 1st 20sq cm No No -Apply Skin Sub - 1st 25 sq cm - Legs 1 1 -Theraskin (per sq cm) 26 26 Pain Scale: 0-10 Numeric Is Patient Pain Free? Yes Yes Yes 05/19/21 10:51 Wound Center Nurse 2 #12 Medial Superior LLE -Time 10:54 -Correct Patient Yes -Correct Side, Site, Position Yes -Correct Procedure Yes -Procedure Performed Yes -Type of Procedure Debridement -Clinical Debridement Subcutaneous -Tissue Removed Subcutaneous -Post Debridement (cm) - Length 1.7 -Post Debridement (cm) - Width 1.8 -Post Debridement (cm) - Depth 0.1 -Total Square (Post) (cm) 3.06 -Area of Debridement (cm) - Length 1.7 -Area of Debridement (cm) - Width 1.8 -Total Square (Area) (cm) 3.06 -Tunneling No -Undermining/Tunneling No -Circular Undermining No -Wound/Ulcer Outcome Not Healed -Ulcer Cleansing Rinsed/ Irrigated with Saline -Foul Odor after Cleansing No -Bioengineered Tissue No -Bleeding Controlled with Pressure -Offloading No -Treatment Response Procedure Tolerated Well -Debridement - Subq, 1st 20sq cm Yes -Debridement, SubQ, ea addt'l 20sq cm or part thereof #11 Medial Inferior LLE -Time 10:55 -Correct Patient Yes -Correct Side, Site, Position Yes -Correct Procedure Yes -Procedure Performed Yes -Type of Procedure Debridement -Clinical Debridement Subcutaneous -Tissue Removed Subcutaneous -Post Debridement (cm) - Length 4.0 -Post Debridement (cm) - Width 4.6 -Post Debridement (cm) - Depth 0.2 -Total Square (Post) (cm) 18.40 -Area of Debridement (cm) - Length 4.0 -Area of Debridement (cm) - Width 4.6 -Total Square (Area) (cm) 18.40 -Tunneling No -Undermining/Tunneling No -Circular Undermining No -Wound/Ulcer Outcome Not Healed -Ulcer Cleansing Rinsed/ Irrigated with Saline -Foul Odor after Cleansing No -Bioengineered Tissue No -Bleeding Controlled with Pressure -Offloading No -Treatment Response Procedure Tolerated Well -Debridement - Subq, 1st 20sq cm No #10 Left Medial Ankle -Time 10:56 -Correct Patient Yes -Correct Side, Site, Position Yes -Correct Procedure Yes -Procedure Performed No -Type of Procedure -Clinical Debridement -Tissue Removed -Post Debridement (cm) - Length -Post Debridement (cm) - Width -Post Debridement (cm) - Depth -Total Square (Post) (cm) -Area of Debridement (cm) - Length -Area of Debridement (cm) - Width -Total Square (Area) (cm) -Tunneling No -Undermining/Tunneling No -Circular Undermining No -Wound/Ulcer Outcome -Ulcer Cleansing -Foul Odor after Cleansing -Bioengineered Tissue -Type of Bioengineered Tissue -Expiration Date -Product Lot Number -Percent Used -Lot number of Saline Used -Bleeding Controlled with -Offloading -Treatment Response -Debridement - Subq, 1st 20sq cm -Apply Skin Sub - 1st 25 sq cm - Legs -Theraskin (per sq cm) Pain Scale: 0-10 Numeric Is Patient Pain Free? Yes WC - Nurse 3 - General Ulcer D/C NN Start: 04/28/21 09:04 Freq: Status: Active Protocol: Activity Type Activity Date Activity User E-Sign Co-Sign Detail Recorded Client Recorded Date Recorded By Document 04/28/21 09:46 MT [id number] 04/28/21 09:47 MT Document 05/05/21 10:08 MT [id number] 05/05/21 10:08 MT Document 05/12/21 10:29 DL [id number] 05/12/21 10:32 DL Document 05/19/21 10:57 MW [id number] 05/19/21 10:58 MW 04/28/21 05/05/21 05/12/21 09:46 10:08 10:29 Wound Care Nurse 3 #12 Medial Superior LLE -Ulcer Cleansing Rinsed/ Irrigated with Saline -Foul Odor after Cleansing No -Negative Pressure Wound Therapy -Primary Dressing Applied Aquacel AG 4x4 -Other Dressing pt brought own pt brings own supplies keramax and aquacel -Primary Dressing Covered/Secured with Secured with Dry Gauze, Tape Secured with Tape -Other Covering -Aquacel AG 4x4 1 #11 Medial Inferior LLE -Ulcer Cleansing Wound Cleanser -Foul Odor after Cleansing No -Negative Pressure Wound Therapy -Other Dressing aqaucel ag/ KerraMax -Primary Dressing Covered/Secured with Dry Gauze, Secured with Tape -Other Covering #10 Left Medial Ankle -Ulcer Cleansing -Foul Odor after Cleansing No -Negative Pressure Wound Therapy -Other Dressing Theraskin -Primary Dressing Covered/Secured with Dry Gauze, Secured with Tape -Other Covering KerraMax Left -Lotion applied to leg before compression wrap -Stockings Yes Right -Stockings Yes Treatment Response Procedure Tolerated Well Pain Scale: 0-10 Numeric Is Patient Pain Free? Yes Teaching: Wound Center Dressing Your Wound -Person Taught -Teaching Method -Response to teaching WC - Visit Discharge Discharge Condition Stable Stable Stable Ambulatory Status Ambulatory Ambulatory Ambulatory Transportation Private Auto Private Auto Private Auto Accompanied by Medication Reconcilliation completed & No No provided to patient/care provider Clinical Summary of Care Provided Yes Yes 05/19/21 10:57 Wound Care Nurse 3 #12 Medial Superior LLE -Ulcer Cleansing Rinsed/ Irrigated with Saline -Foul Odor after Cleansing No -Negative Pressure Wound Therapy N/A -Primary Dressing Applied -Other Dressing aquacel ag -Primary Dressing Covered/Secured with Dry Gauze, Secured with Tape -Other Covering kerramax -Aquacel AG 4x4 #11 Medial Inferior LLE -Ulcer Cleansing Rinsed/ Irrigated with Saline -Foul Odor after Cleansing No -Negative Pressure Wound Therapy N/A -Other Dressing aquacel ag -Primary Dressing Covered/Secured with Dry Gauze & Roll Gauze, Secured with Tape -Other Covering kerramax #10 Left Medial Ankle -Ulcer Cleansing Not Cleansed -Foul Odor after Cleansing No -Negative Pressure Wound Therapy N/A -Other Dressing -Primary Dressing Covered/Secured with Dry Gauze & Roll Gauze, Secured with Tape -Other Covering kerramax Left -Lotion applied to leg before No compression wrap -Stockings Yes Right -Stockings Treatment Response Procedure Tolerated Well Pain Scale: 0-10 Numeric Is Patient Pain Free? Yes Teaching: Wound Center Dressing Your Wound -Person Taught Patient -Teaching Method Discussion, Demonstration -Response to teaching Verbalize understanding WC - Visit Discharge Discharge Condition Stable Ambulatory Status Ambulatory Transportation Private Auto Accompanied by self Medication Reconcilliation completed & No provided to patient/care provider Clinical Summary of Care Provided Yes Wound debrided: Left lower extremity (inferior) Type of Debridement: Excisional debridement Anesthesia Used: 4% Lidocaine Solution Depth: Down to and including healthy tissue and in the subcutaneous layer Percentage of wound debrided: 100 Instrument Used: 5mm curette Tissue Removed: Slough and devitalized tissue Severity: Fat Layer Exposed Amount of bleeding with debridement: Mild Bleeding Controlled with: Pressure Additional Wound Wound debrided: Left lower extremity superior Type of Debridement: Excisional debridement Anesthesia Used: 4% Lidocaine Solution Depth: Down to and including healthy tissue and in the subcutaneous layer Percentage of wound debrided: 100 Instrument Used: 5mm curette Tissue Removed: Slough and devitalized tissue Severity: Fat Layer Exposed Amount of bleeding with debridement: Mild Bleeding Controlled with: Pressure Patient tolerated procedure: Patient tolerated procedure well Assessment/Plan Assessment/Plan (1) Ulcer of left lower extremity with fat layer exposed: CODE(S): L97.922 - Non-pressure chronic ulcer of unspecified part of left lower leg with fat layer exposed (2) PVD (peripheral vascular disease): CODE(S): I73.9 - Peripheral vascular disease, unspecified (3) Chronic venous insufficiency: CODE(S): I87.2 - Venous insufficiency (chronic) (peripheral) (4) Delayed wound healing: CODE(S): T14.8XXD - Other injury of unspecified body region, subsequent encounter PLAN: Debridement done as documented above, procedure was well-tolerated. TheraSkin to left medial also left in place. Continue Aquacel Ag and Keramax care to all other ulcers. Change dressing daily to twice daily due to drainage. Continue use of compression stockings, leg elevation and exercise. Increased protein intake , protein supplements, zinc and vitamin C also recommended. His questions were answered and he was advised to call with any further questions or concerns. Follow-up in 1 week This note was generated with [email or web address] dictation software. It may contain incorrect words, spelling, and punctuation that were not noted in checking the note before signing.
[2021-05-26 09:08] VITALS: BP 143/78; PULSE 81; RESP 20; TEMP 36.6; BMI 31.4
--- NOTE | 2021-05-26 10:51 | PCM.WC.PN ---
History of Present Illness Date of Service: 05/26/21 Chief Complaint: ulcers to the left lower leg History of Wound: This is a 54-year-old male presents to wound healing center with a long-standing history of chronic venous insufficiency, chronic venous hypertension, lower extremity edema, lower extremity pain, and chronic left lower extremity ulcer. 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 He is currently wearing graduated compression stockings which are documented to be 20-30 mmHg compression and these are thigh high. He reports great compliance with use. He is also had previous arterial work-up with no intervention recommended by letter, his vascular surgeon. He denies taking nutritional supplementation. He saw dermatology and had a biopsy of the ulcer site. He also was previously treated by infectious disease for various contaminations and infections. He is not antibiotics at this time nor does he have any redness or odor coming from the wound. He denies fever, chill, nausea, vomiting, loss of appetite. Subjective Subjective Has had 2 applications of TheraSkin to left medial ankle ulcer. Denies any new concerns at this time Objective Data Objective Data Vital Signs: Vital Signs Temp Pulse Resp BP Pulse Ox 97.9 F 81 20 H 143/78 H 99 05/26/21 09:08 05/26/21 09:08 05/26/21 09:08 05/26/21 09:08 04/28/21 00:18 Oxygen Delivery Method Room Air Body Mass Index (BMI) 31.4 Charges/Coding Procedures Integumentary 111xxx-113xx: 95649 Lakeisha subq tissue 20 sq cm/< 150xxx-152xx: [id number] Skin sub graft trnk/arm/leg Physical Exam Const alert, oriented x3 and no apparent distress General Appearance: cooperative and comfortable Orientation / Consciousness: awake HEENT normocephalic Head and Scalp: normal to inspection, normocephalic and atraumatic Face and Sinus: normal facial exam Eyes EOMs intact bilaterally Neck full ROM and supple General: normal visual inspection Resp normal respiratory effort Effort and Inspection: able to speak in complete sentences GI non-tender Extremity normal to inspection General Extremity: edema Skin Wounds: wounds noted Neuro oriented x3 and CN's II-XII intact bilaterally Psych mental status grossly normal Appearance: grossly normal Debridement Note Debridement Note Post-Debridement Measurements and Additional Note: Post-Debridement Measurements/Treatment - Nurse 1 - General Ulcer Assessment Start: 04/28/21 09:04 Freq: Status: Active Protocol: SHANTA Activity Type Activity Date Activity User E-Sign Co-Sign Detail Recorded Client Recorded Date Recorded By Document 04/28/21 09:04 MT [id number] 04/28/21 09:09 MT Document 05/05/21 09:22 RB [id number] 05/05/21 09:30 RB Document 05/12/21 09:33 DL [id number] 05/12/21 09:49 DL Document 05/19/21 10:34 DL [id number] 05/19/21 10:41 DL Document 05/26/21 09:08 DL [id number] 05/26/21 09:18 DL 04/28/21 05/05/21 05/12/21 09:04 09:22 09:33 - Today's Visit Information Type of service Follow-up Visit Follow-up Visit Follow-up Visit (Physician/INTEGRATION ARCHITECT (Physician/INTEGRATION ARCHITECT (Physician/INTEGRATION ARCHITECT ) ) ) Arrival Mode Ambulatory Ambulatory Ambulatory Transfer Assistance None None Accompanied by self Patient Identification Verified (Name & Yes Yes Yes ) Patient Requires Transmission-Based No No Precautions Height and Weight Body Mass Index (BMI) 31.4 31.4 31.4 BMI Classification Obese Obese Obese Vital Signs Temperature (97.8 F-99.1 F) 97 F L 98.6 F 97.7 F L Temperature Source Temporal Temporal Temporal Pulse Rate (60-100) 82 75 Pulse Location Monitor Monitor Monitor Respiratory Rate (12-18) 16 18 20 H Respiratory rate source Observation Observation Observation Oxygen Delivery Method Room Air Blood Pressure (90/60-120/80) 148/74 H 138/81 H Blood Pressure Mean (mm Hg) 98 100 Source Monitor Monitor Monitor Position Sitting Semi-Fowlers Blood Pressure Location Left Arm Left Arm History Since Last Visit- (Skip if this is Patient's initial visit) Have you changed medications since your No No No last visit? Any new allergies or adverse reactions No No No Had a fall/change in ADL's that may No No No increase risk of falls Signs or symptoms of abuse and/or No No neglect since last visit Have you been in the hospital since your No No No last visit? Has dressing in place as prescribed Yes Yes Yes Has compression in place as prescribed Yes Yes Yes Has offloadiing in place as prescribed Yes No N/A Experienced any changes in pain level or No No management Left Footwear Regular Shoe Regular Shoe Regular Shoe Right Footwear Regular Shoe Regular Shoe Regular Shoe Pain Scale: 0-10 Numeric Is Patient Pain Free? Yes Yes 05/19/21 05/26/21 10:34 09:08 - Today's Visit Information Type of service Follow-up Visit Follow-up Visit (Physician/INTEGRATION ARCHITECT (Physician/INTEGRATION ARCHITECT ) ) Arrival Mode Ambulatory Ambulatory Transfer Assistance None None Accompanied by Patient Identification Verified (Name & Yes Yes ) Patient Requires Transmission-Based No No Precautions Height and Weight Body Mass Index (BMI) 31.4 31.4 BMI Classification Obese Obese Vital Signs Temperature (97.8 F-99.1 F) 97.3 F L 97.9 F Temperature Source Temporal Temporal Pulse Rate (60-100) 90 81 Pulse Location Monitor Monitor Respiratory Rate (12-18) 18 20 H Respiratory rate source Observation Observation Oxygen Delivery Method Blood Pressure (90/60-120/80) 147/90 H 143/78 H Blood Pressure Mean (mm Hg) 109 99 Source Monitor Monitor Position Blood Pressure Location History Since Last Visit- (Skip if this is Patient's initial visit) Have you changed medications since your No No last visit? Any new allergies or adverse reactions No No Had a fall/change in ADL's that may No No increase risk of falls Signs or symptoms of abuse and/or No No neglect since last visit Have you been in the hospital since your No No last visit? Has dressing in place as prescribed Yes Yes Has compression in place as prescribed Yes Yes Has offloadiing in place as prescribed N/A N/A Experienced any changes in pain level or No No management Left Footwear Right Footwear Pain Scale: 0-10 Numeric Is Patient Pain Free? Yes Yes - Nurse 1 - General Ulcer Measurement Start: 04/28/21 09:04 Freq: Status: Active Protocol: Activity Type Activity Date Activity User E-Sign Co-Sign Detail Recorded Client Recorded Date Recorded By Document 04/28/21 09:04 MT [id number] 04/28/21 09:09 MT Document 05/05/21 09:22 RB [id number] 05/05/21 09:30 RB Document 05/12/21 09:33 DL [id number] 05/12/21 09:49 DL Document 05/19/21 10:34 DL [id number] 05/19/21 10:41 DL Document 05/26/21 09:08 DL [id number] 05/26/21 09:18 DL 04/28/21 05/05/21 05/12/21 09:04 09:22 09:33 Wound Center Nurse 1 #12 Medial Superior LLE -Combined with other wound No -Current Size (cm) - Length 1.8 2.1 2 -Current Size (cm) - Width 2.0 1.8 1.8 -Current Size (cm) - Depth 0.2 0.2 0.2 -Total Square Cm 3.60 3.78 3.6 -Photo Taken No -Tunneling No -Undermining/Tunneling No -Circular Undermining No -Exudate Amt Small Large Medium -Exudate Type Serosanguineous Serosanguineous Serosanguineous -Wound Margin Flat & Intact Distinct, Distinct, Outline Outline Attached Attached -Granulation Amt Medium (34-66%) Medium (34-66%) Medium (34-66%) -Granulation Quality Pale,[employer] -Slough/Fibrin Yes -Necrosis Amt Medium (34-66%) Small (1-33%) Medium (34-66%) -Necrotic Tissue Type Adherent Slough Eschar -Structure Exposed N/A N/A -Texture (Ara-wound Skin Appearance) Assessed Assessed, Scarring Scarring -Moisture (Ara-wound Skin Appearance) Assessed Assessed Dry/Scaly -Color (Ara-wound Skin Appearance) Assessed Hemosiderin Hemosiderin Staining Staining -Temperature (Ara-wound Skin No Abnormality No Abnormality No Abnormality Appearance) (Pt Warm) (Pt Warm) (Pt Warm) -Tenderness on Palpation (Ara-wound No No No Skin Appearance) -Ulcer Cleansing Rinsed/ Wound Cleanser Wound Cleanser Irrigated with Saline -Foul Odor after Cleansing No No No -Anesthetic Used 4% Lidocaine 4% Lidocaine 4% Lidocaine Solution Solution Solution #11 Medial Inferior LLE -Combined with other wound No -Current Size (cm) - Length 2.7 4.4 4.6 -Current Size (cm) - Width 4.4 1.8 4.6 -Current Size (cm) - Depth 0.3 0.1 0.2 -Total Square Cm 11.88 7.92 21.16 -Photo Taken No -Tunneling No -Undermining/Tunneling No -Circular Undermining No -Exudate Amt Medium Medium Medium -Exudate Type Serosanguineous Serosanguineous Serosanguineous -Wound Margin Flat & Intact Distinct, Distinct, Outline Outline Attached Attached -Granulation Amt Medium (34-66%) Medium (34-66%) Medium (34-66%) -Granulation Quality Pale,[place],Red -Slough/Fibrin Yes -Necrosis Amt Medium (34-66%) Small (1-33%) Medium (34-66%) -Necrotic Tissue Type Adherent Slough Adherent Slough Adherent Slough -Structure Exposed N/A N/A -Texture (Ara-wound Skin Appearance) Assessed Assessed, Scarring Scarring -Moisture (Ara-wound Skin Appearance) Assessed Assessed Dry/Scaly -Color (Ara-wound Skin Appearance) Assessed Hemosiderin Hemosiderin Staining Staining -Temperature (Ara-wound Skin No Abnormality No Abnormality No Abnormality Appearance) (Pt Warm) (Pt Warm) (Pt Warm) -Tenderness on Palpation (Ara-wound No No No Skin Appearance) -Ulcer Cleansing Rinsed/ Wound Cleanser Wound Cleanser Irrigated with Saline -Foul Odor after Cleansing No No No -Anesthetic Used 5% Lidocaine 4% Lidocaine 4% Lidocaine Gel Solution Solution #10 Left Medial Ankle -Current Size (cm) - Length 5.6 4.5 -Current Size (cm) - Width 2.4 5.1 -Current Size (cm) - Depth 0.2 0.3 -Total Square Cm 13.44 22.95 -Photo Taken No -Exudate Amt Medium Medium -Exudate Type Serosanguineous Serosanguineous -Wound Margin Flat & Intact Fibrotic Scar, Thickened Scar -Granulation Amt Medium (34-66%) Medium (34-66%) -Granulation Quality Pale,[place] Red -Necrosis Amt Medium (34-66%) Medium (34-66%) -Necrotic Tissue Type Adherent Slough Adherent Slough -Structure Exposed N/A -Texture (Ara-wound Skin Appearance) Assessed Scarring -Moisture (Ara-wound Skin Appearance) Assessed Dry/Scaly -Color (Ara-wound Skin Appearance) Assessed Hemosiderin Staining -Temperature (Ara-wound Skin No Abnormality No Abnormality Appearance) (Pt Warm) (Pt Warm) -Tenderness on Palpation (Ara-wound No No Skin Appearance) -Ulcer Cleansing Rinsed/ Wound Cleanser Irrigated with Saline -Foul Odor after Cleansing No No -Anesthetic Used 4% Lidocaine 4% Lidocaine Solution Solution Lower Limb Edema Present Yes Left Calf (cm) 33.1 35.6 38.5 Left Ankle (cm) 23 23.2 34 05/19/21 05/26/21 10:34 09:08 Wound Center Nurse 1 #12 Medial Superior LLE -Combined with other wound -Current Size (cm) - Length 1.8 1.7 -Current Size (cm) - Width 1.8 1.8 -Current Size (cm) - Depth 0.2 0.2 -Total Square Cm 3.24 3.06 -Photo Taken No No -Tunneling -Undermining/Tunneling -Circular Undermining -Exudate Amt Small Small -Exudate Type Serosanguineous Serosanguineous -Wound Margin Distinct, Distinct, Outline Outline Attached Attached -Granulation Amt Large (67-100%) Large (67-100%) -Granulation Quality Red Red -Slough/Fibrin -Necrosis Amt Small (1-33%) Small (1-33%) -Necrotic Tissue Type Adherent Slough Adherent Slough -Structure Exposed N/A N/A -Texture (Ara-wound Skin Appearance) Scarring Scarring -Moisture (Ara-wound Skin Appearance) Dry/Scaly Dry/Scaly -Color (Ara-wound Skin Appearance) Hemosiderin Hemosiderin Staining Staining -Temperature (Ara-wound Skin No Abnormality No Abnormality Appearance) (Pt Warm) (Pt Warm) -Tenderness on Palpation (Ara-wound No No Skin Appearance) -Ulcer Cleansing Rinsed/ Wound Cleanser Irrigated with Saline -Foul Odor after Cleansing No No -Anesthetic Used 4% Lidocaine 5% Lidocaine Solution Gel #11 Medial Inferior LLE -Combined with other wound -Current Size (cm) - Length 4.7 4.6 -Current Size (cm) - Width 4.7 3.9 -Current Size (cm) - Depth 0.2 0.2 -Total Square Cm 22.09 17.94 -Photo Taken No No -Tunneling -Undermining/Tunneling -Circular Undermining -Exudate Amt Small Medium -Exudate Type Serosanguineous -Wound Margin Distinct, Distinct, Outline Outline Attached Attached -Granulation Amt Large (67-100%) Medium (34-66%) -Granulation Quality Red Red -Slough/Fibrin -Necrosis Amt Small (1-33%) Medium (34-66%) -Necrotic Tissue Type Adherent Slough Adherent Slough -Structure Exposed N/A N/A -Texture (Ara-wound Skin Appearance) Scarring Scarring -Moisture (Ara-wound Skin Appearance) Dry/Scaly Dry/Scaly -Color (Ara-wound Skin Appearance) Hemosiderin Hemosiderin Staining Staining -Temperature (Ara-wound Skin No Abnormality No Abnormality Appearance) (Pt Warm) (Pt Warm) -Tenderness on Palpation (Ara-wound No No Skin Appearance) -Ulcer Cleansing Rinsed/ Wound Cleanser Irrigated with Saline -Foul Odor after Cleansing No -Anesthetic Used 4% Lidocaine 4% Lidocaine Solution, Solution Cetacaine #10 Left Medial Ankle -Current Size (cm) - Length 4.5 4 -Current Size (cm) - Width 4.6 4.3 -Current Size (cm) - Depth 0.3 0.4 -Total Square Cm 20.70 17.2 -Photo Taken No No -Exudate Amt Medium Medium -Exudate Type Serosanguineous Serosanguineous -Wound Margin Distinct, Thickened Outline Attached -Granulation Amt Medium (34-66%) -Granulation Quality Red -Necrosis Amt Medium (34-66%) -Necrotic Tissue Type Adherent Slough -Structure Exposed N/A -Texture (Ara-wound Skin Appearance) Scarring Scarring -Moisture (Ara-wound Skin Appearance) Dry/Scaly Dry/Scaly -Color (Ara-wound Skin Appearance) Hemosiderin Hemosiderin Staining Staining -Temperature (Ara-wound Skin No Abnormality No Abnormality Appearance) (Pt Warm) (Pt Warm) -Tenderness on Palpation (Ara-wound No No Skin Appearance) -Ulcer Cleansing theraskin Wound Cleanser recheck -Foul Odor after Cleansing No No -Anesthetic Used 4% Lidocaine Solution Lower Limb Edema Present Left Calf (cm) 33.7 Left Ankle (cm) 23.2 WC - Nurse 2 - General Ulcer CM Notes Start: 04/28/21 09:04 Freq: Status: Active Protocol: Activity Type Activity Date Activity User E-Sign Co-Sign Detail Recorded Client Recorded Date Recorded By Document 04/28/21 09:57 PL [id number] 04/28/21 10:01 PL Document 05/05/21 09:53 MW [id number] 05/05/21 09:59 MW Edit Result 05/05/21 09:53 MW (1) [id number] 05/06/21 06:20 PL Document 05/12/21 10:07 MW [id number] 05/12/21 10:22 MW Document 05/19/21 10:51 MW [id number] 05/19/21 10:57 MW Edit Result 05/19/21 10:51 MW (2) [id number] 05/22/21 10:25 PL Document 05/26/21 09:23 MW [id number] 05/26/21 09:36 MW (1) #12 Medial Superior LLE - Debridement, SubQ, ea addt'l 20sq cm => 1 or part thereof (2) #12 Medial Superior LLE - Debridement, SubQ, ea addt'l 20sq cm => 1 or part thereof 04/28/21 05/05/21 05/12/21 09:57 09:53 10:07 Wound Center Nurse 2 #12 Medial Superior LLE -Time 09:17 09:53 10:07 -Correct Patient Yes Yes Yes -Correct Side, Site, Position Yes Yes Yes -Correct Procedure Yes Yes Yes -Procedure Performed Yes Yes Yes -Type of Procedure Debridement Debridement Debridement -Clinical Debridement Subcutaneous Subcutaneous Subcutaneous -Tissue Removed Subcutaneous Subcutaneous Subcutaneous -Post Debridement (cm) - Length 1.8 2.0 2.0 -Post Debridement (cm) - Width 2.3 2.0 2.0 -Post Debridement (cm) - Depth 0.1 0.1 0.1 -Total Square (Post) (cm) 4.14 4.00 4.00 -Area of Debridement (cm) - Length 1.8 2.0 2.0 -Area of Debridement (cm) - Width 2.3 2.0 2.0 -Total Square (Area) (cm) 4.14 4.00 4.00 -Tunneling No No No -Undermining/Tunneling No No No -Circular Undermining No No No -Wound/Ulcer Outcome Not Healed Not Healed Not Healed -Ulcer Cleansing Rinsed/ Rinsed/ Rinsed/ Irrigated with Irrigated with Irrigated with Saline Saline Saline -Foul Odor after Cleansing No No No -Bioengineered Tissue No No No -Bleeding Controlled with Pressure Pressure -Offloading No No -Treatment Response Procedure Procedure Procedure Tolerated Well Tolerated Well Tolerated Well -Debridement - Subq, 1st 20sq cm No Yes Yes -Debridement, SubQ, ea addt'l 20sq cm 1 or part thereof #11 Medial Inferior LLE -Time 09: 09:54 10:08 -Correct Patient Yes Yes Yes -Correct Side, Site, Position Yes Yes Yes -Correct Procedure Yes Yes Yes -Procedure Performed Yes Yes Yes -Type of Procedure Debridement Debridement Debridement -Clinical Debridement Subcutaneous Subcutaneous Subcutaneous -Tissue Removed Subcutaneous Subcutaneous Subcutaneous -Post Debridement (cm) - Length 4 4.0 4.0 -Post Debridement (cm) - Width 4.5 5.0 5.0 -Post Debridement (cm) - Depth 0.2 0.2 0.2 -Total Square (Post) (cm) 18.0 20.00 20.00 -Area of Debridement (cm) - Length 4.0 4.0 4.0 -Area of Debridement (cm) - Width 4.5 5.0 5.0 -Total Square (Area) (cm) 18.00 20.00 20.00 -Tunneling No No No -Undermining/Tunneling No No No -Circular Undermining No No No -Wound/Ulcer Outcome Not Healed Not Healed Not Healed -Ulcer Cleansing Rinsed/ Rinsed/ Rinsed/ Irrigated with Irrigated with Irrigated with Saline Saline Saline -Foul Odor after Cleansing No No No -Bioengineered Tissue No No No -Bleeding Controlled with Pressure Pressure -Offloading No No -Treatment Response Procedure Procedure Tolerated Well Tolerated Well -Debridement - Subq, 1st 20sq cm No No No #10 Left Medial Ankle -Time : 09:54 10:08 -Correct Patient Yes Yes Yes -Correct Side, Site, Position Yes Yes Yes -Correct Procedure Yes Yes Yes -Procedure Performed Yes No Yes -Type of Procedure Debridement Debridement -Clinical Debridement Subcutaneous Subcutaneous -Tissue Removed Subcutaneous Subcutaneous -Post Debridement (cm) - Length 5.0 4.5 -Post Debridement (cm) - Width 3.3 3.8 -Post Debridement (cm) - Depth 0.3 0.2 -Total Square (Post) (cm) 16.50 17.10 -Area of Debridement (cm) - Length 5.0 4.5 -Area of Debridement (cm) - Width 3.3 3.8 -Total Square (Area) (cm) 16.50 17.10 -Tunneling No No No -Undermining/Tunneling No No No -Circular Undermining No No No -Wound/Ulcer Outcome Not Healed Not Healed Not Healed -Ulcer Cleansing Rinsed/ Rinsed/ Irrigated with Irrigated with Saline Saline -Foul Odor after Cleansing No No -Bioengineered Tissue Yes Yes -Type of Bioengineered Tissue Theraskin Theraskin -Expiration Date 12/20/24 12/29/24 -Product Lot Number [id number] -Percent Used 100 100 -Lot number of Saline Used [id number] -Bleeding Controlled with Pressure NA Pressure -Offloading No No -Treatment Response Procedure Procedure Tolerated Well Tolerated Well -Debridement - Subq, 1st 20sq cm No No -Apply Skin Sub - 1st 25 sq cm - Legs 1 1 -Theraskin (per sq cm) 26 26 Pain Scale: 0-10 Numeric Is Patient Pain Free? Yes Yes Yes 05/19/21 05/26/21 10:51 09:23 Wound Center Nurse 2 #12 Medial Superior LLE -Time 10:54 09:24 -Correct Patient Yes Yes -Correct Side, Site, Position Yes Yes -Correct Procedure Yes Yes -Procedure Performed Yes Yes -Type of Procedure Debridement Debridement -Clinical Debridement Subcutaneous Subcutaneous -Tissue Removed Subcutaneous Subcutaneous -Post Debridement (cm) - Length 1.7 1.6 -Post Debridement (cm) - Width 1.8 1.8 -Post Debridement (cm) - Depth 0.1 0.1 -Total Square (Post) (cm) 3.06 2.88 -Area of Debridement (cm) - Length 1.7 1.6 -Area of Debridement (cm) - Width 1.8 1.8 -Total Square (Area) (cm) 3.06 2.88 -Tunneling No No -Undermining/Tunneling No No -Circular Undermining No No -Wound/Ulcer Outcome Not Healed Not Healed -Ulcer Cleansing Rinsed/ Rinsed/ Irrigated with Irrigated with Saline Saline -Foul Odor after Cleansing No No -Bioengineered Tissue No No -Bleeding Controlled with Pressure Pressure -Offloading No No -Treatment Response Procedure Procedure Tolerated Well Tolerated Well -Debridement - Subq, 1st 20sq cm Yes Yes -Debridement, SubQ, ea addt'l 20sq cm 1 or part thereof #11 Medial Inferior LLE -Time 10:55 09:24 -Correct Patient Yes Yes -Correct Side, Site, Position Yes Yes -Correct Procedure Yes Yes -Procedure Performed Yes Yes -Type of Procedure Debridement Debridement -Clinical Debridement Subcutaneous Subcutaneous -Tissue Removed Subcutaneous Subcutaneous -Post Debridement (cm) - Length 4.0 3.8 -Post Debridement (cm) - Width 4.6 4.2 -Post Debridement (cm) - Depth 0.2 0.2 -Total Square (Post) (cm) 18.40 15.96 -Area of Debridement (cm) - Length 4.0 3.8 -Area of Debridement (cm) - Width 4.6 4.2 -Total Square (Area) (cm) 18.40 15.96 -Tunneling No No -Undermining/Tunneling No No -Circular Undermining No No -Wound/Ulcer Outcome Not Healed Not Healed -Ulcer Cleansing Rinsed/ Rinsed/ Irrigated with Irrigated with Saline Saline -Foul Odor after Cleansing No No -Bioengineered Tissue No No -Bleeding Controlled with Pressure Pressure -Offloading No No -Treatment Response Procedure Procedure Tolerated Well Tolerated Well -Debridement - Subq, 1st 20sq cm No No #10 Left Medial Ankle -Time 10:56 09:24 -Correct Patient Yes Yes -Correct Side, Site, Position Yes Yes -Correct Procedure Yes Yes -Procedure Performed No Yes -Type of Procedure Debridement -Clinical Debridement Subcutaneous -Tissue Removed Subcutaneous -Post Debridement (cm) - Length 4.5 -Post Debridement (cm) - Width 3.6 -Post Debridement (cm) - Depth 0.2 -Total Square (Post) (cm) 16.20 -Area of Debridement (cm) - Length 4.5 -Area of Debridement (cm) - Width 3.6 -Total Square (Area) (cm) 16.20 -Tunneling No No -Undermining/Tunneling No No -Circular Undermining No No -Wound/Ulcer Outcome Not Healed -Ulcer Cleansing Rinsed/ Irrigated with Saline -Foul Odor after Cleansing No -Bioengineered Tissue Yes -Type of Bioengineered Tissue Theraskin -Expiration Date 07/23/24 -Product Lot Number [id number] -Percent Used 100 -Lot number of Saline Used [id number] -Bleeding Controlled with Pressure -Offloading No -Treatment Response Procedure Tolerated Well -Debridement - Subq, 1st 20sq cm No -Apply Skin Sub - 1st 25 sq cm - Legs 1 -Theraskin (per sq cm) 13 Pain Scale: 0-10 Numeric Is Patient Pain Free? Yes Yes WC - Nurse 3 - General Ulcer D/C NN Start: 04/28/21 09:04 Freq: Status: Active Protocol: Activity Type Activity Date Activity User E-Sign Co-Sign Detail Recorded Client Recorded Date Recorded By Document 04/28/21 09:46 MT [id number] 04/28/21 09:47 MT Document 05/05/21 10:08 MT [id number] 05/05/21 10:08 MT Document 05/12/21 10:29 DL [id number] 05/12/21 10:32 DL Document 05/19/21 10:57 MW [id number] 05/19/21 10:58 MW Document 05/26/21 09:46 DL [id number] 05/26/21 09:50 DL 04/28/21 05/05/21 05/12/21 09:46 10:08 10:29 Wound Care Nurse 3 #12 Medial Superior LLE -Ulcer Cleansing Rinsed/ Irrigated with Saline -Foul Odor after Cleansing No -Negative Pressure Wound Therapy -Primary Dressing Applied Aquacel AG 4x4 -Other Dressing pt brought own pt brings own supplies keramax and aquacel -Primary Dressing Covered/Secured with Secured with Dry Gauze, Tape Secured with Tape -Other Covering -Aquacel AG 4x4 1 #11 Medial Inferior LLE -Ulcer Cleansing Wound Cleanser -Foul Odor after Cleansing No -Negative Pressure Wound Therapy -Other Dressing aqaucel ag/ KerraMax -Primary Dressing Covered/Secured with Dry Gauze, Secured with Tape -Other Covering #10 Left Medial Ankle -Ulcer Cleansing -Foul Odor after Cleansing No -Negative Pressure Wound Therapy -Other Dressing Theraskin -Primary Dressing Covered/Secured with Dry Gauze, Secured with Tape -Other Covering KerraMax Left -Lotion applied to leg before compression wrap -Stockings Yes Right -Stockings Yes Treatment Response Procedure Tolerated Well Pain Scale: 0-10 Numeric Is Patient Pain Free? Yes Teaching: Wound Center Dressing Your Wound -Person Taught -Teaching Method -Response to teaching WC - Visit Discharge Discharge Condition Stable Stable Stable Ambulatory Status Ambulatory Ambulatory Ambulatory Transportation Private Auto Private Auto Private Auto Accompanied by Medication Reconcilliation completed & No No provided to patient/care provider Clinical Summary of Care Provided Yes Yes 05/19/21 05/26/21 10:57 09:46 Wound Care Nurse 3 #12 Medial Superior LLE -Ulcer Cleansing Rinsed/ Wound Cleanser Irrigated with Saline -Foul Odor after Cleansing No No -Negative Pressure Wound Therapy N/A -Primary Dressing Applied Aquacel AG 4x4 -Other Dressing aquacel ag KerraMax -Primary Dressing Covered/Secured with Dry Gauze, Dry Gauze Secured with Tape -Other Covering kerramax -Aquacel AG 4x4 1 #11 Medial Inferior LLE -Ulcer Cleansing Rinsed/ Wound Cleanser Irrigated with Saline -Foul Odor after Cleansing No No -Negative Pressure Wound Therapy N/A -Other Dressing aquacel ag aquacel ag -Primary Dressing Covered/Secured with Dry Gauze & Dry Gauze Roll Gauze, Secured with Tape -Other Covering kerramax kerraMax #10 Left Medial Ankle -Ulcer Cleansing Not Cleansed -Foul Odor after Cleansing No No -Negative Pressure Wound Therapy N/A -Other Dressing Theraskin -Primary Dressing Covered/Secured with Dry Gauze & Dry Gauze Roll Gauze, Secured with Tape -Other Covering kerramax Left -Lotion applied to leg before No compression wrap -Stockings Yes Yes Right -Stockings Treatment Response Procedure Procedure Tolerated Well Tolerated Well Pain Scale: 0-10 Numeric Is Patient Pain Free? Yes Yes Teaching: Wound Center Dressing Your Wound -Person Taught Patient -Teaching Method Discussion, Demonstration -Response to teaching Verbalize understanding WC - Visit Discharge Discharge Condition Stable Stable Ambulatory Status Ambulatory Ambulatory Transportation Private Auto Private Auto Accompanied by self Medication Reconcilliation completed & No provided to patient/care provider Clinical Summary of Care Provided Yes Wound debrided: Left NAkle ( medial ) Type of Debridement: Excisional debridement Anesthesia Used: 4% Lidocaine Solution Depth: Down to and including healthy tissue and in the subcutaneous layer Percentage of wound debrided: 100 Instrument Used: 5mm curette Tissue Removed: Slough and devitalized tissue Severity: Fat Layer Exposed Amount of bleeding with debridement: Mild Bleeding Controlled with: Pressure Patient tolerated procedure: Patient tolerated procedure well Additional Wound Wound debrided: Left lower extremity ( Inferior ) Type of Debridement: Excisional debridement Anesthesia Used: 4% Lidocaine Solution Depth: Down to and including healthy tissue and in the subcutaneous layer Percentage of wound debrided: 100 Instrument Used: 5mm curette Tissue Removed: Slough and devitalized tissue Severity: Fat Layer Exposed Amount of bleeding with debridement: Mild Bleeding Controlled with: Pressure Patient tolerated procedure: Patient tolerated procedure well Additional Wound Wound debrided: Left Lower Extremity ( Superior ) Type of Debridement: Excisional debridement Anesthesia Used: 4% Lidocaine Solution Depth: Down to and including healthy tissue and in the subcutaneous layer Percentage of wound debrided: 100 Instrument Used: 5mm curette Tissue Removed: Slough and devitalized tissue Severity: Fat Layer Exposed Amount of bleeding with debridement: Mild Bleeding Controlled with: Pressure Patient tolerated procedure: Patient tolerated procedure well Assessment/Plan Assessment/Plan (1) Ulcer of left lower extremity with fat layer exposed: CODE(S): L97.922 - Non-pressure chronic ulcer of unspecified part of left lower leg with fat layer exposed (2) PVD (peripheral vascular disease): CODE(S): I73.9 - Peripheral vascular disease, unspecified (3) Chronic venous insufficiency: CODE(S): I87.2 - Venous insufficiency (chronic) (peripheral) (4) Delayed wound healing: CODE(S): T14.8XXD - Other injury of unspecified body region, subsequent encounter PLAN: Debridement done as documented above, procedure was well-tolerated. 3rd application of Thera Skin to left lower extremity (ankle) ulcer done today using 100% of product. Secured with Dermabond and covered with Adaptic touch. Will leave in place for 2 weeks however will follow-up in 1 week. continue Aquacel Ag and Keramax care to all other ulcers. Strongly advised to change dressing daily to twice daily due to drainage. Continue use of compression stockings, leg elevation and exercise. Increased protein intake , protein supplements, zinc and vitamin C also recommended. His questions were answered and he was advised to call with any further questions or concerns. Follow-up in 1 week This note was generated with [employer] dictation software. It may contain incorrect words, spelling, and punctuation that were not noted in checking the note before signing.
== END 2021-05-28 23:59 ==
LOC: WC 09:00
PROVIDERS: Visit Provider Internal Medicine
DX: I73.9 Peripheral vascular disease, unspecified (principal); I87.2 Venous insufficiency (chronic) (peripheral); L97.322 Non-pressure chronic ulcer of left ankle with fat layer exposed; L97.822 Non-pressure chronic ulcer of other part of left lower leg with fat layer exposed; R60.0 Localized edema; M79.606 Pain in leg, unspecified
CPT/HCPCS: 11042; 11045; 15271; Q4121

== ENCOUNTER 2021-06-23 09:00 | Outpatient (RCR) | payer BC, SELFPAY ==
[2021-05-29 00:22] VITALS: BP 143/78; PULSE 81; RESP 20; TEMP 36.6; O2SAT 99
[2021-06-02 09:08] VITALS: BP 155/82; PULSE 78; TEMP 36.6; BMI 31.4
--- NOTE | 2021-06-02 10:21 | PCM.WC.PN ---
History of Present Illness Date of Service: 06/02/21 Chief Complaint: ulcers to the left lower leg History of Wound: This is a 54-year-old male presents to wound healing center with a long-standing history of chronic venous insufficiency, chronic venous hypertension, lower extremity edema, lower extremity pain, and chronic left lower extremity ulcer. The patient has previously undergone endovenous laser ablation of the left and right great saphenous vein, the small saphenous vein, the left accessory saphenous vein, and an incompetent left calf browning processor vein located 15 cm proximal to the left medial malleolus. He is currently wearing graduated compression stockings which are documented to be 20-30 mmHg compression and these are thigh high. He reports great compliance with use. He is also had previous arterial work-up with no intervention recommended by letter, his vascular surgeon. He denies taking nutritional supplementation. He saw dermatology and had a biopsy of the ulcer site. He also was previously treated by infectious disease for various contaminations and infections. He is not antibiotics at this time nor does he have any redness or odor coming from the wound. He denies fever, chill, nausea, vomiting, loss of appetite. Subjective Subjective Has had 3 applications of TheraSkin to left medial ankle ulcer. Has noted increased drainage from the [place] site but otherwise, no acute concerns. No chills, fever or feeling of unwell Objective Data Objective Data Vital Signs: Vital Signs Temp Pulse Resp BP Pulse Ox 97.8 F 78 20 H 155/82 H 99 06/02/21 09:08 06/02/21 09:08 05/29/21 00:22 06/02/21 09:08 05/29/21 00:22 Body Mass Index (BMI) 31.4 Charges/Coding Procedures Integumentary 111xxx-113xx: [id number] Lakeisha subq tissue 20 sq cm/< Add On Codes: 98070 Lakeisha subq tissue add-on Physical Exam Const alert, oriented x3 and no apparent distress General Appearance: cooperative and comfortable Orientation / Consciousness: awake HEENT normocephalic Head and Scalp: normal to inspection, normocephalic and atraumatic Face and Sinus: normal facial exam Eyes EOMs intact bilaterally Neck full ROM and supple General: normal visual inspection Resp normal respiratory effort Effort and Inspection: able to speak in complete sentences GI non-tender Extremity normal to inspection General Extremity: edema Skin Wounds: wounds noted Neuro oriented x3 and CN's II-XII intact bilaterally Psych mental status grossly normal Appearance: grossly normal Debridement Note Debridement Note Post-Debridement Measurements and Additional Note: Post-Debridement Measurements/Treatment KIMBERLY - Nurse 1 - General Ulcer Assessment Start: 06/02/21 09:04 Freq: Status: Active Protocol: SHANTA Activity Type Activity Date Activity User E-Sign Co-Sign Detail Recorded Client Recorded Date Recorded By Document 06/02/21 09:08 ALFONSO [id number] 06/02/21 09:12 ALFONSO 06/02/21 09:08 - Today's Visit Information Type of service Follow-up Visit (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 Any new allergies or adverse reactions No Had a fall/change in ADL's that may No increase risk of falls Signs or symptoms of abuse and/or No neglect since last visit Have you been in the hospital since your No last visit? Has dressing in place as prescribed Yes Has compression in place as prescribed N/A Has offloadiing in place as prescribed N/A Experienced any changes in pain level or No management Left Footwear Regular Shoe Right Footwear Regular Shoe KIMBERLY - Nurse 1 - General Ulcer Measurement Start: 06/02/21 09:04 Freq: Status: Active Protocol: Activity Type Activity Date Activity User E-Sign Co-Sign Detail Recorded Client Recorded Date Recorded By Document 06/02/21 09:08 ALFONSO [id number] 06/02/21 09:12 ALFONSO 06/02/21 09:08 Wound Center Nurse 1 #12 Medial Superior LLE -Combined with other wound No -Current Size (cm) - Length 2.0 -Current Size (cm) - Width 2.2 -Current Size (cm) - Depth 0.1 -Total Square Cm 4.40 -Photo Taken No -Epithelialization None Present -Tunneling No -Undermining/Tunneling No -Circular Undermining No -Exudate Amt Medium -Exudate Type Serosanguineous -Granulation Amt Medium (34-66%) -Granulation Quality [place] -Slough/Fibrin Yes -Necrosis Amt Medium (34-66%) -Necrotic Tissue Type Adherent Slough #11 Medial Inferior LLE -Current Size (cm) - Length 4.1 -Current Size (cm) - Width 4.8 -Current Size (cm) - Depth 0.1 -Total Square Cm 19.68 -Photo Taken No -Epithelialization None Present -Tunneling No -Undermining/Tunneling No -Circular Undermining No -Exudate Amt Medium -Exudate Type Serosanguineous -Granulation Amt Medium (34-66%) -Granulation Quality [place] -Slough/Fibrin Yes -Necrosis Amt Medium (34-66%) -Necrotic Tissue Type Adherent Slough -Texture (Ara-wound Skin Appearance) No Abnormality -Moisture (Ara-wound Skin Appearance) Dry/Scaly WC - Nurse 2 - General Ulcer CM Notes Start: 06/02/21 09:04 Freq: Status: Active Protocol: Activity Type Activity Date Activity User E-Sign Co-Sign Detail Recorded Client Recorded Date Recorded By Document 06/02/21 09:25 MW [id number] 06/02/21 09:31 MW 06/02/21 09:25 Wound Center Nurse 2 #12 Medial Superior LLE -Time 09:25 -Correct Patient Yes -Correct Side, Site, Position Yes -Procedure Performed Yes -Type of Procedure Debridement -Clinical Debridement Subcutaneous -Tissue Removed Subcutaneous -Post Debridement (cm) - Length 1.8 -Post Debridement (cm) - Width 2.2 -Post Debridement (cm) - Depth 0.2 -Total Square (Post) (cm) 3.96 -Area of Debridement (cm) - Length 1.8 -Area of Debridement (cm) - Width 2.2 -Total Square (Area) (cm) 3.96 -Tunneling No -Undermining/Tunneling No -Circular Undermining No -Wound/Ulcer Outcome Not Healed -Ulcer Cleansing Rinsed/ Irrigated with Saline -Foul Odor after Cleansing No -Bioengineered Tissue No -Bleeding Controlled with Pressure -Offloading No -Treatment Response Procedure Tolerated Well -Debridement - Subq, 1st 20sq cm Yes -Debridement, SubQ, ea addt'l 20sq cm 1 or part thereof #11 Medial Inferior LLE -Time 09:26 -Correct Patient Yes -Correct Side, Site, Position Yes -Correct Procedure Yes -Procedure Performed Yes -Type of Procedure Debridement -Clinical Debridement Subcutaneous -Tissue Removed Subcutaneous -Post Debridement (cm) - Length 4.0 -Post Debridement (cm) - Width 4.2 -Post Debridement (cm) - Depth 0.2 -Total Square (Post) (cm) 16.80 -Area of Debridement (cm) - Length 4.0 -Area of Debridement (cm) - Width 4.2 -Total Square (Area) (cm) 16.80 -Tunneling No -Undermining/Tunneling No -Circular Undermining No -Wound/Ulcer Outcome Not Healed -Ulcer Cleansing Rinsed/ Irrigated with Saline -Foul Odor after Cleansing No -Bioengineered Tissue No -Bleeding Controlled with Pressure -Offloading No -Treatment Response Procedure Tolerated Well -Debridement - Subq, 1st 20sq cm No #10 Left Medial Ankle -Time 09:26 -Correct Patient Yes -Correct Side, Site, Position Yes -Correct Procedure Yes -Procedure Performed No -Tunneling No -Undermining/Tunneling No -Circular Undermining No -Wound/Ulcer Outcome Not Healed -Ulcer Cleansing Not Cleansed -Foul Odor after Cleansing No -Bioengineered Tissue No -Bleeding Controlled with NA -Offloading No Pain Scale: 0-10 Numeric Is Patient Pain Free? Yes WC - Nurse 3 - General Ulcer D/C NN Start: 06/02/21 09:04 Freq: Status: Active Protocol: Activity Type Activity Date Activity User E-Sign Co-Sign Detail Recorded Client Recorded Date Recorded By Document 06/02/21 09:39 DL [id number] 06/02/21 09:44 DL 06/02/21 09:39 Wound Care Nurse 3 #12 Medial Superior LLE -Ulcer Cleansing Rinsed/ Irrigated with Saline -Foul Odor after Cleansing No -Primary Dressing Applied Aquacel AG 4x4 -Primary Dressing Covered/Secured with Dry Gauze & Roll Gauze, Secured with Tape -Aquacel AG 4x4 1 #11 Medial Inferior LLE -Ulcer Cleansing Rinsed/ Irrigated with Saline -Foul Odor after Cleansing No -Other Dressing aquacel ag -Primary Dressing Covered/Secured with Dry Gauze & Roll Gauze #10 Left Medial Ankle -Other Dressing Theraskin recheck -Primary Dressing Covered/Secured with Dry Gauze & Roll Gauze, Secured with Tape Treatment Response Procedure Tolerated Well Pain Scale: 0-10 Numeric Is Patient Pain Free? Yes WC - Visit Discharge Discharge Condition Stable Ambulatory Status Cane Wound debrided: Left lower extremity inferior Type of Debridement: Excisional debridement Anesthesia Used: 4% Lidocaine Solution Depth: Down to and including healthy tissue Percentage of wound debrided: 100 Instrument Used: 5mm curette Tissue Removed: Slough and devitalized tissue Severity: Fat Layer Exposed Amount of bleeding with debridement: Mild Bleeding Controlled with: Pressure Patient tolerated procedure: Patient tolerated procedure well Additional Wound Wound debrided: Left lower extremity superior Type of Debridement: Excisional debridement Anesthesia Used: 4% Lidocaine Solution Depth: Down to and including healthy tissue Percentage of wound debrided: 100 Instrument Used: 5mm curette Tissue Removed: Slough and devitalized tissue Severity: Fat Layer Exposed Amount of bleeding with debridement: Mild Bleeding Controlled with: Pressure Patient tolerated procedure: Patient tolerated procedure well Assessment/Plan Assessment/Plan (1) Ulcer of left lower extremity with fat layer exposed: CODE(S): L97.922 - Non-pressure chronic ulcer of unspecified part of left lower leg with fat layer exposed (2) PVD (peripheral vascular disease): CODE(S): I73.9 - Peripheral vascular disease, unspecified (3) Chronic venous insufficiency: CODE(S): I87.2 - Venous insufficiency (chronic) (peripheral) (4) Delayed wound healing: CODE(S): T14.8XXD - Other injury of unspecified body region, subsequent encounter PLAN: Debridement done as documented above, procedure was well-tolerated. TheraSkin to left medial also left in place. Continue Aquacel Ag and Keramax care to all other ulcers. Change dressing daily to twice daily due to drainage. Continue use of compression stockings, leg elevation and exercise. Increased protein intake , protein supplements, zinc and vitamin C also recommended. His questions were answered and he was advised to call with any further questions or concerns. Follow-up in 1 week This note was generated with [employer] dictation software. It may contain incorrect words, spelling, and punctuation that were not noted in checking the note before signing.
[2021-06-09 09:05] VITALS: BP 144/88; PULSE 76; TEMP 36.4; BMI 31.4
--- NOTE | 2021-06-09 10:30 | PN.PCM_ITS ---
History of Present Illness Date of Service: 06/09/21 Chief Complaint: ulcers to the left lower leg History of Wound: This is a 54-year-old male presents to wound healing center with a long-standing history of chronic venous insufficiency, chronic venous hypertension, lower extremity edema, lower extremity pain, and chronic left lower extremity ulcer. 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 He is currently wearing graduated compression stockings which are documented to be 20-30 mmHg compression and these are thigh high. He reports great compliance with use. He is also had previous arterial work-up with no intervention recommended by letter, his vascular surgeon. He denies taking nutritional supplementation. He saw dermatology and had a biopsy of the ulcer site. He also was previously treated by infectious disease for various contaminations and infections. He is not antibiotics at this time nor does he have any redness or odor coming from the wound. He denies fever, chill, nausea, vomiting, loss of appetite. Subjective Subjective He reports more pain and drainage from the ulcers. No chills, fever or otherwise feeling of unwell. has had 3 applications of Theraskin so far. Objective Data Objective Data Vital Signs: Vital Signs Temp Pulse Resp BP Pulse Ox 97.5 F L 76 20 H 144/88 H 99 06/09/21 09:05 06/09/21 09:05 05/29/21 00:22 06/09/21 09:05 05/29/21 00:22 Body Mass Index (BMI) 31.4 Charges/Coding Procedures Integumentary 150xxx-152xx: 12544 Skin sub graft trnk/arm/leg Physical Exam Const alert, oriented x3 and no apparent distress General Appearance: cooperative and comfortable Orientation / Consciousness: awake HEENT normocephalic Head and Scalp: normal to inspection, normocephalic and atraumatic Face and Sinus: normal facial exam Eyes EOMs intact bilaterally Neck full ROM and supple General: normal visual inspection Resp normal respiratory effort Effort and Inspection: able to speak in complete sentences GI non-tender Extremity normal to inspection General Extremity: edema Skin Wounds: wounds noted Neuro oriented x3 and CN's II-XII intact bilaterally Psych mental status grossly normal Appearance: grossly normal Debridement Note Debridement Note Post-Debridement Measurements and Additional Note: Post-Debridement Measu rements/Treatment - Nurse 1 - General Ulcer Assessment Start: 06/02/21 09:04 Freq: Status: Active Protocol: SHANTA Activity Type Activity Date Activity User E-Sign Co-Sign Detail Recorded Client Recorded Date Recorded By Document 06/02/21 09:08 ALFONSO [id number] 06/02/21 09:12 AK Document 06/09/21 09:05 AK [id number] 06/09/21 09:16 AK 06/02/21 06/09/21 09:08 09:05 KIMBERLY - Today's Visit Information Type of service Follow-up Visit Follow-up Visit (Physician/STORAGE RECEIPT POSTER (Physician/STORAGE RECEIPT POSTER ) ) Arrival Mode Ambulatory Ambulatory Patient Identification Verified (Name & Yes Yes ) Height and Weight Body Mass Index (BMI) 31.4 31.4 BMI Classification Obese Obese Vital Signs Temperature (97.8 F-99.1 F) 97.8 F 97.5 F L Temperature Source Temporal Temporal Pulse Rate (60-100) 78 76 Pulse Location Monitor Blood Pressure (90/60-120/80) 155/82 H 144/88 H Blood Pressure Mean (mm Hg) 106 106 Source Monitor Monitor History Since Last Visit- (Skip if this is Patient's initial visit) Have you changed medications since your No No last visit? Any new allergies or adverse reactions No No Had a fall/change in ADL's that may No No increase risk of falls Signs or symptoms of abuse and/or No No neglect since last visit Have you been in the hospital since your No No last visit? Has dressing in place as prescribed Yes Yes Has compression in place as prescribed N/A N/A Has offloadiing in place as prescribed N/A N/A Experienced any changes in pain level or No management Left Footwear Regular Shoe Regular Shoe Right Footwear Regular Shoe Regular Shoe KIMBERLY - Nurse 1 - General Ulcer Measurement Start: 06/02/21 09:04 Freq: Status: Active Protocol: Activity Type Activity Date Activity User E-Sign Co-Sign Detail Recorded Client Recorded Date Recorded By Document 06/02/21 09:08 AK [id number] 06/02/21 09:12 AK Document 06/09/21 09:05 ALFONSO [id number] 06/09/21 09:16 AK 06/02/21 06/09/21 09:08 09:05 Wound Center Nurse 1 #12 Medial Superior LLE -Combined with other wound No No -Current Size (cm) - Length 2.0 1.8 -Current Size (cm) - Width 2.2 2.2 -Current Size (cm) - Depth 0.1 0.1 -Total Square Cm 4.40 3.96 -Photo Taken No No -Epithelialization None Present None Present -Tunneling No No -Undermining/Tunneling No No -Circular Undermining No No -Exudate Amt Medium Medium -Exudate Type Serosanguineous Serosanguineous -Wound Margin Distinct, Outline Attached -Granulation Amt Medium (34-66%) Medium (34-66%) -Granulation Quality [place] Red -Slough/Fibrin Yes -Necrosis Amt Medium (34-66%) Medium (34-66%) -Necrotic Tissue Type Adherent Slough Adherent Slough -Texture (Ara-wound Skin Appearance) Assessed, Scarring -Moisture (Ara-wound Skin Appearance) No Abnormality, Assessed -Color (Ara-wound Skin Appearance) Assessed, Hemosiderin Staining -Temperature (Ara-wound Skin No Abnormality Appearance) (Pt Warm) -Tenderness on Palpation (Ara-wound Yes Skin Appearance) -Ulcer Cleansing Rinsed/ Irrigated with Saline -Anesthetic Used 4% Lidocaine Solution #11 Medial Inferior LLE -Combined with other wound No -Current Size (cm) - Length 4.1 5.3 -Current Size (cm) - Width 4.8 4.3 -Current Size (cm) - Depth 0.1 0.1 -Total Square Cm 19.68 22.79 -Photo Taken No No -Epithelialization None Present None Present -Tunneling No No -Undermining/Tunneling No No -Circular Undermining No No -Exudate Amt Medium Medium -Exudate Type Serosanguineous Serosanguineous -Wound Margin Distinct, Outline Attached -Granulation Amt Medium (34-66%) Medium (34-66%) -Granulation Quality [place] Red -Slough/Fibrin Yes -Necrosis Amt Medium (34-66%) Medium (34-66%) -Necrotic Tissue Type Adherent Slough Adherent Slough -Texture (Ara-wound Skin Appearance) No Abnormality Assessed, Scarring -Moisture (Ara-wound Skin Appearance) Dry/Scaly Assessed -Color (Ara-wound Skin Appearance) Assessed, Hemosiderin Staining -Temperature (Ara-wound Skin No Abnormality Appearance) (Pt Warm) -Tenderness on Palpation (Ara-wound Yes Skin Appearance) -Ulcer Cleansing Rinsed/ Irrigated with Saline -Foul Odor after Cleansing No -Anesthetic Used 4% Lidocaine Solution #10 Left Medial Ankle -Current Size (cm) - Length 7 -Current Size (cm) - Width 4.2 -Current Size (cm) - Depth 0.1 -Total Square Cm 29.4 -Epithelialization None Present -Tunneling No -Undermining/Tunneling No -Circular Undermining No -Exudate Amt Medium -Exudate Type Yellow/Green -Wound Margin Distinct, Outline Attached -Granulation Amt Medium (34-66%) -Granulation Quality [place] -Necrosis Amt Medium (34-66%) -Necrotic Tissue Type Eschar -Texture (Ara-wound Skin Appearance) Assessed, Scarring -Moisture (Ara-wound Skin Appearance) Assessed, Maceration -Color (Ara-wound Skin Appearance) Assessed, Hemosiderin Staining -Temperature (Ara-wound Skin No Abnormality Appearance) (Pt Warm) -Tenderness on Palpation (Ara-wound No Skin Appearance) Left Calf (cm) 33.7 Left Ankle (cm) 23.2 WC - Nurse 2 - General Ulcer CM Notes Start: 06/02/21 09:04 Freq: Status: Active Protocol: Activity Type Activity Date Activity User E-Sign Co-Sign Detail Recorded Client Recorded Date Recorded By Document 06/02/21 09:25 MW [id number] 06/02/21 09:31 MW Document 06/09/21 09:26 MW [id number] 06/09/21 09:42 MW 06/02/21 06/09/21 09:25 09:26 Wound Center Nurse 2 #12 [facility] Superior LLE -Time 09:25 09:26 -Correct Patient Yes Yes -Correct Side, Site, Position Yes Yes -Correct Procedure Yes -Procedure Performed Yes Yes -Type of Procedure Debridement Debridement -Clinical Debridement Subcutaneous Subcutaneous -Tissue Removed Subcutaneous Subcutaneous -Post Debridement (cm) - Length 1.8 1.8 -Post Debridement (cm) - Width 2.2 2.0 -Post Debridement (cm) - Depth 0.2 0.1 -Total Square (Post) (cm) 3.96 3.60 -Area of Debridement (cm) - Length 1.8 1.8 -Area of Debridement (cm) - Width 2.2 2.0 -Total Square (Area) (cm) 3.96 3.60 -Tunneling No No -Undermining/Tunneling No No -Circular Undermining No No -Wound/Ulcer Outcome Not Healed Not Healed -Ulcer Cleansing Rinsed/ Rinsed/ Irrigated with Irrigated with Saline Saline -Foul Odor after Cleansing No No -Bioengineered Tissue No No -Bleeding Controlled with Pressure Pressure -Offloading No No -Treatment Response Procedure Procedure Tolerated Well Tolerated Well -Debridement - Subq, 1st 20sq cm Yes Yes -Debridement, SubQ, ea addt'l 20sq cm 1 or part thereof #11 Medial Inferior LLE -Time : 09:27 -Correct Patient Yes Yes -Correct Side, Site, Position Yes Yes -Correct Procedure Yes Yes -Procedure Performed Yes Yes -Type of Procedure Debridement Debridement -Clinical Debridement Subcutaneous Subcutaneous -Tissue Removed Subcutaneous Subcutaneous -Post Debridement (cm) - Length 4.0 4.0 -Post Debridement (cm) - Width 4.2 4.5 -Post Debridement (cm) - Depth 0.2 0.1 -Total Square (Post) (cm) 16.80 18.00 -Area of Debridement (cm) - Length 4.0 4.0 -Area of Debridement (cm) - Width 4.2 4.5 -Total Square (Area) (cm) 16.80 18.00 -Tunneling No No -Undermining/Tunneling No No -Circular Undermining No No -Wound/Ulcer Outcome Not Healed Not Healed -Ulcer Cleansing Rinsed/ Rinsed/ Irrigated with Irrigated with Saline Saline -Foul Odor after Cleansing No No -Bioengineered Tissue No No -Bleeding Controlled with Pressure Pressure -Offloading No No -Treatment Response Procedure Procedure Tolerated Well Tolerated Well -Debridement - Subq, 1st 20sq cm No No #10 Left Medial Ankle -Time : 09:27 -Correct Patient Yes Yes -Correct Side, Site, Position Yes Yes -Correct Procedure Yes Yes -Procedure Performed No Yes -Type of Procedure Debridement -Clinical Debridement Subcutaneous -Tissue Removed Subcutaneous -Post Debridement (cm) - Length 4.5 -Post Debridement (cm) - Width 3.5 -Post Debridement (cm) - Depth 0.2 -Total Square (Post) (cm) 15.75 -Area of Debridement (cm) - Length 4.5 -Area of Debridement (cm) - Width 3.5 -Total Square (Area) (cm) 15.75 -Tunneling No No -Undermining/Tunneling No No -Circular Undermining No No -Wound/Ulcer Outcome Not Healed Not Healed -Ulcer Cleansing Not Cleansed Rinsed/ Irrigated with Saline -Foul Odor after Cleansing No No -Bioengineered Tissue No Yes -Type of Bioengineered Tissue Theraskin -Expiration Date 08/18/24 -Product Lot Number [id number] -Percent Used 100 -Lot number of Saline Used [id number] -Bleeding Controlled with NA Pressure -Offloading No No -Treatment Response Procedure Tolerated Well -Debridement - Subq, 1st 20sq cm No -Apply Skin Sub - 1st 25 sq cm - Legs 1 -Theraskin (per sq cm) 13 Pain Scale: 0-10 Numeric Is Patient Pain Free? Yes Yes WC - Nurse 3 - General Ulcer D/C NN Start: 06/02/21 09:04 Freq: Status: Active Protocol: Activity Type Activity Date Activity User E-Sign Co-Sign Detail Recorded Client Recorded Date Recorded By Document 06/02/21 09:39 DL [id number] 06/02/21 09:44 DL Document 06/09/21 09:52 AK [id number] 06/09/21 09:54 AK 06/02/21 06/09/21 09:39 09:52 Wound Care Nurse 3 #12 Medial Superior LLE -Ulcer Cleansing Rinsed/ Rinsed/ Irrigated with Irrigated with Saline Saline -Foul Odor after Cleansing No -Primary Dressing Applied Aquacel AG 4x4 Aquacel AG 4x4 -Primary Dressing Covered/Secured with Dry Gauze & Secured with Roll Gauze, Tape,Other Secured with Tape -Other Covering keramex -Aquacel AG 4x4 1 1 #11 Medial Inferior LLE -Ulcer Cleansing Rinsed/ Rinsed/ Irrigated with Irrigated with Saline Saline -Foul Odor after Cleansing No No -Primary Dressing Applied Aquacel AG 4x4 -Other Dressing aquacel ag -Primary Dressing Covered/Secured with Dry Gauze & Secured with Roll Gauze Tape -Aquacel AG 4x4 0 #10 Left Medial Ankle -Ulcer Cleansing Rinsed/ Irrigated with Saline -Foul Odor after Cleansing No -Primary Dressing Applied Aquacel AG 4x4 -Other Dressing Theraskin recheck -Primary Dressing Covered/Secured with Dry Gauze & Roll Gauze, Secured with Tape -Other Covering ABD -Aquacel AG 4x4 0 Treatment Response Procedure Tolerated Well Pain Scale: 0-10 Numeric Is Patient Pain Free? Yes WC - Visit Discharge Discharge Condition Stable Stable Ambulatory Status Cane Ambulatory Transportation Private Auto Medication Reconcilliation completed & Yes provided to patient/care provider Clinical Summary of Care Provided Yes Wound debrided: Left medial ankle Type of Debridement: Excisional debridement Anesthesia Used: 4% Lidocaine Solution Depth: Down to and including healthy tissue and in the subcutaneous layer Percentage of wound debrided: 100 Instrument Used: 5mm curette Tissue Removed: Slough and devitallized tissue Severity: Fat Layer Exposed Amount of bleeding with debridement: Mild Bleeding Controlled with: Pressure Patient tolerated procedure: Patient tolerated procedure well Additional Wound Wound debrided: Left lower extremity ( inferior ) Type of Debridement: Excisional debridement Anesthesia Used: 4% Lidocaine Solution Depth: Down to and including healthy tissue and in the subcutaneous layer Percentage of wound debrided: 100 Instrument Used: 5mm curette Severity: Fat Layer Exposed Amount of bleeding with debridement: Mild Bleeding Controlled with: Pressure Patient tolerated procedure: Patient tolerated procedure well Additional Wound Wound debrided: Left lower extremity ( Superior ) Type of Debridement: Excisional debridement Anesthesia Used: 4% Lidocaine Solution Depth: Down to and including healthy tissue and in the subcutaneous layer Percentage of wound debrided: 100 Instrument Used: 5mm curette Tissue Removed: Slough and devitalized tissue Severity: Fat Layer Exposed Amount of bleeding with debridement: Mild Bleeding Controlled with: Pressure Patient tolerated procedure: Patient tolerated procedure well Assessment/Plan Assessment/Plan (1) Ulcer of left lower extremity with fat layer exposed: CODE(S): L97.922 - Non-pressure chronic ulcer of unspecified part of left lower leg with fat layer exposed (2) PVD (peripheral vascular disease): CODE(S): I73.9 - Peripheral vascular disease, unspecified (3) Chronic venous insufficiency: CODE(S): I87.2 - Venous insufficiency (chronic) (peripheral) (4) Delayed wound healing: CODE(S): T14.8XXD - Other injury of unspecified body region, subsequent encounter PLAN: Debridement done as documented above, procedure was well-tolerated. 4th application of Thera Skin to left lower extremity (ankle) ulcer done today using 100% of product. Secured with Dermabond and covered with Adaptic touch. Will leave in place for 2. continue Aquacel Ag and Keramax care to all other ulcers. Strongly advised to change dressing daily to twice daily due to drainage. Continue use of compression stockings, leg elevation and exercise. Increased protein intake, protein supplements, zinc and vitamin C also recommended. He was started on Clindamycin empirically. Hx of Chronic MRSA. He was advised to take probiotics as well. His questions were answered and he was advised to call with any further questions or concerns. Follow-up in 2 weeks. This note was generated with [employer] dictation software. It may contain incorrect words, spelling, and punctuation that were not noted in checking the note before signing.
[2021-06-23 09:03] VITALS: BP 151/76; PULSE 84; RESP 18; TEMP 36.7; BMI 31.4
--- NOTE | 2021-06-23 10:08 | PCM.WC.PN ---
History of Present Illness Date of Service: 06/23/21 Chief Complaint: ulcers to the left lower leg History of Wound: This is a 54-year-old male presents to wound healing center with a long-standing history of chronic venous insufficiency, chronic venous hypertension, lower extremity edema, lower extremity pain, and chronic left lower extremity ulcer. The patient has previously undergone endovenous laser ablation of the left and right great saphenous vein, the small saphenous vein, the left accessory saphenous vein, and an incompetent left calf tube pusher vein located 15 cm proximal to the left medial malleolus. He is currently wearing graduated compression stockings which are documented to be 20-30 mmHg compression and these are thigh high. He reports great compliance with use. He is also had previous arterial work-up with no intervention recommended by letter, his vascular surgeon. He denies taking nutritional supplementation. He saw dermatology and had a biopsy of the ulcer site. He also was previously treated by infectious disease for various contaminations and infections. He is not antibiotics at this time nor does he have any redness or odor coming from the wound. He denies fever, chill, nausea, vomiting, loss of appetite. Subjective Subjective No new concerns at this time. Has had TheraSkin to his left ankle ulcer for 2 weeks. Four total applications so far. Objective Data Objective Data Vital Signs: Vital Signs Temp Pulse Resp BP Pulse Ox 98.1 F 84 18 151/76 H 99 06/23/21 09:03 06/23/21 09:03 06/23/21 09:03 06/23/21 09:03 05/29/21 00:22 Body Mass Index (BMI) 31.4 Charges/Coding Procedures Integumentary 150xxx-152xx: 66635 Skin sub graft trnk/arm/leg Physical Exam Const alert, oriented x3 and no apparent distress General Appearance: cooperative and comfortable Orientation / Consciousness: awake HEENT normocephalic Head and Scalp: normal to inspection, normocephalic and atraumatic Face and Sinus: normal facial exam Eyes EOMs intact bilaterally Neck full ROM and supple General: normal visual inspection Resp normal respiratory effort Effort and Inspection: able to speak in complete sentences GI non-tender Extremity normal to inspection General Extremity: edema Skin Wounds: wounds noted Neuro oriented x3 and CN's II-XII intact bilaterally Psych mental status grossly normal Appearance: grossly normal Debridement Note Debridement Note Post-Debridement Measurements and Additional Note: Post-Debridement Measurements/Treatment - Nurse 1 - General Ulcer Assessment Start: 06/02/21 09:04 Freq: Status: Active Protocol: SHANTA Activity Type Activity Date Activity User E-Sign Co-Sign Detail Recorded Client Recorded Date Recorded By Document 06/02/21 09:08 AK [id number] 06/02/21 09:12 AK Document 06/09/21 09:05 AK [id number] 06/09/21 09:16 AK Document 06/23/21 09:03 DL [id number] 06/23/21 09:11 DL 06/02/21 06/09/21 06/23/21 09:08 09:05 09:03 WC - Today's Visit Information Type of service Follow-up Visit Follow-up Visit Follow-up Visit (Physician/DENIAL MANAGEMENT REPRESENTATIVE (Physician/DENIAL MANAGEMENT REPRESENTATIVE (Physician/DENIAL MANAGEMENT REPRESENTATIVE ) ) ) Arrival Mode Ambulatory Ambulatory Ambulatory Transfer Assistance None Patient Identification Verified (Name & Yes Yes ) Patient Requires Transmission-Based No Precautions Height and Weight Body Mass Index (BMI) 31.4 31.4 31.4 BMI Classification Obese Obese Obese Vital Signs Temperature (97.8 F-99.1 F) 97.8 F 97.5 F L 98.1 F Temperature Source Temporal Temporal Temporal Pulse Rate (60-100) 78 76 84 Pulse Location Monitor Monitor Respiratory Rate (12-18) 18 Respiratory rate source Observation Blood Pressure (90/60-120/80) 155/82 H 144/88 H 151/76 H Blood Pressure Mean (mm Hg) 106 106 101 Source Monitor Monitor Monitor History Since Last Visit- (Skip if this is Patient's initial visit) Have you changed medications since your No No No last visit? Any new allergies or adverse reactions No No No Had a fall/change in ADL's that may No No No increase risk of falls Signs or symptoms of abuse and/or No No neglect since last visit Have you been in the hospital since your No No No last visit? Has dressing in place as prescribed Yes Yes Yes Has compression in place as prescribed N/A N/A Yes Has offloadiing in place as prescribed N/A N/A N/A Experienced any changes in pain level or No No management Left Footwear Regular Shoe Regular Shoe Right Footwear Regular Shoe Regular Shoe Pain Scale: 0-10 Numeric Is Patient Pain Free? Yes - Nurse 1 - General Ulcer Measurement Start: 06/02/21 09:04 Freq: Status: Active Protocol: Activity Type Activity Date Activity User E-Sign Co-Sign Detail Recorded Client Recorded Date Recorded By Document 06/02/21 09:08 AK [id number] 06/02/21 09:12 AK Document 06/09/21 09:05 AK [id number] 06/09/21 09:16 AK Document 06/23/21 09:03 DL [id number] 06/23/21 09:11 DL 06/02/21 06/09/21 06/23/21 09:08 09:05 09:03 Wound Center Nurse 1 #12 Medial Superior LLE -Combined with other wound No No -Current Size (cm) - Length 2.0 1.8 1.8 -Current Size (cm) - Width 2.2 2.2 2.1 -Current Size (cm) - Depth 0.1 0.1 0.1 -Total Square Cm 4.40 3.96 3.78 -Photo Taken No No No -Epithelialization None Present None Present -Tunneling No No -Undermining/Tunneling No No -Circular Undermining No No -Exudate Amt Medium Medium Medium -Exudate Type Serosanguineous Serosanguineous Serosanguineous -Wound Margin Distinct, Distinct, Outline Outline Attached Attached -Granulation Amt Medium (34-66%) Medium (34-66%) Large (67-100%) -Granulation Quality [place] Red Pale -Slough/Fibrin Yes -Necrosis Amt Medium (34-66%) Medium (34-66%) Small (1-33%) -Necrotic Tissue Type Adherent Slough Adherent Slough Adherent Slough -Structure Exposed N/A -Texture (Aar-wound Skin Appearance) Assessed, Scarring Scarring -Moisture (Ara-wound Skin Appearance) No Abnormality, Dry/Scaly Assessed -Color (Ara-wound Skin Appearance) Assessed, Hemosiderin Hemosiderin Staining Staining -Temperature (Ara-wound Skin No Abnormality Appearance) (Pt Warm) -Tenderness on Palpation (Ara-wound Yes No Skin Appearance) -Ulcer Cleansing Rinsed/ Wound Cleanser Irrigated with Saline -Foul Odor after Cleansing No -Anesthetic Used 4% Lidocaine 4% Lidocaine Solution Solution #11 Medial Inferior LLE -Combined with other wound No -Current Size (cm) - Length 4.1 5.3 4 -Current Size (cm) - Width 4.8 4.3 3.6 -Current Size (cm) - Depth 0.1 0.1 0.1 -Total Square Cm 19.68 22.79 14.4 -Photo Taken No No No -Epithelialization None Present None Present -Tunneling No No -Undermining/Tunneling No No -Circular Undermining No No -Exudate Amt Medium Medium Medium -Exudate Type Serosanguineous Serosanguineous Serosanguineous -Wound Margin Distinct, Distinct, Outline Outline Attached Attached -Granulation Amt Medium (34-66%) Medium (34-66%) Large (67-100%) -Granulation Quality [place] Red Red -Slough/Fibrin Yes -Necrosis Amt Medium (34-66%) Medium (34-66%) Small (1-33%) -Necrotic Tissue Type Adherent Slough Adherent Slough Adherent Slough -Structure Exposed N/A -Texture (Ara-wound Skin Appearance) No Abnormality Assessed, Scarring Scarring -Moisture (Ara-wound Skin Appearance) Dry/Scaly Assessed Dry/Scaly -Color (Ara-wound Skin Appearance) Assessed, Hemosiderin Hemosiderin Staining Staining -Temperature (Ara-wound Skin No Abnormality No Abnormality Appearance) (Pt Warm) (Pt Warm) -Tenderness on Palpation (Ara-wound Yes No Skin Appearance) -Ulcer Cleansing Rinsed/ Wound Cleanser Irrigated with Saline -Foul Odor after Cleansing No No -Anesthetic Used 4% Lidocaine 4% Lidocaine Solution Solution #10 Left Medial Ankle -Current Size (cm) - Length 7 4.8 -Current Size (cm) - Width 4.2 5 -Current Size (cm) - Depth 0.1 0.4 -Total Square Cm 29.4 24.0 -Photo Taken No -Epithelialization None Present -Tunneling No -Undermining/Tunneling No -Circular Undermining No -Exudate Amt Medium Medium -Exudate Type Yellow/Green -Wound Margin Distinct, Distinct, Outline Outline Attached Attached -Granulation Amt Medium (34-66%) Small (1-33%) -Granulation Quality [place] Red -Necrosis Amt Medium (34-66%) Large (67-100%) -Necrotic Tissue Type Eschar Adherent Slough -Structure Exposed N/A -Texture (Ara-wound Skin Appearance) Assessed, Scarring Scarring -Moisture (Ara-wound Skin Appearance) Assessed, Maceration Maceration -Color (Ara-wound Skin Appearance) Assessed, Hemosiderin Hemosiderin Staining Staining -Temperature (Ara-wound Skin No Abnormality No Abnormality Appearance) (Pt Warm) (Pt Warm) -Tenderness on Palpation (Ara-wound No No Skin Appearance) -Ulcer Cleansing Wound Cleanser -Foul Odor after Cleansing No -Anesthetic Used 4% Lidocaine Solution Left Calf (cm) 33.7 Left Ankle (cm) 23.2 WC - Nurse 2 - General Ulcer CM Notes Start: 06/02/21 09:04 Freq: Status: Active Protocol: Activity Type Activity Date Activity User E-Sign Co-Sign Detail Recorded Client Recorded Date Recorded By Document 06/02/21 09:25 MW [id number] 06/02/21 09:31 MW Document 06/09/21 09:26 MW [id number] 06/09/21 09:42 MW Document 06/23/21 09:22 MW [id number] 06/23/21 09:36 MW 06/02/21 06/09/21 06/23/21 09:25 09:26 09:22 Wound Center Nurse 2 #12 Medial Superior LLE -Time 09:25 09:26 09:32 -Correct Patient Yes Yes Yes -Correct Side, Site, Position Yes Yes Yes -Correct Procedure Yes Yes -Procedure Performed Yes Yes Yes -Type of Procedure Debridement Debridement Debridement -Clinical Debridement Subcutaneous Subcutaneous Subcutaneous -Tissue Removed Subcutaneous Subcutaneous Subcutaneous -Post Debridement (cm) - Length 1.8 1.8 1.6 -Post Debridement (cm) - Width 2.2 2.0 2.0 -Post Debridement (cm) - Depth 0.2 0.1 0.1 -Total Square (Post) (cm) 3.96 3.60 3.20 -Area of Debridement (cm) - Length 1.8 1.8 1.6 -Area of Debridement (cm) - Width 2.2 2.0 2.0 -Total Square (Area) (cm) 3.96 3.60 3.20 -Tunneling No No No -Undermining/Tunneling No No No -Circular Undermining No No No -Wound/Ulcer Outcome Not Healed Not Healed Not Healed -Ulcer Cleansing Rinsed/ Rinsed/ Rinsed/ Irrigated with Irrigated with Irrigated with Saline Saline Saline -Foul Odor after Cleansing No No No -Bioengineered Tissue No No No -Bleeding Controlled with Pressure Pressure Pressure -Offloading No No No -Treatment Response Procedure Procedure Procedure Tolerated Well Tolerated Well Tolerated Well -Debridement - Subq, 1st 20sq cm Yes Yes Yes -Debridement, SubQ, ea addt'l 20sq cm 1 or part thereof #11 Medial Inferior LLE -Time 09: 09:27 09:33 -Correct Patient Yes Yes Yes -Correct Side, Site, Position Yes Yes Yes -Correct Procedure Yes Yes Yes -Procedure Performed Yes Yes Yes -Type of Procedure Debridement Debridement Debridement -Clinical Debridement Subcutaneous Subcutaneous Subcutaneous -Tissue Removed Subcutaneous Subcutaneous Subcutaneous -Post Debridement (cm) - Length 4.0 4.0 3.8 -Post Debridement (cm) - Width 4.2 4.5 4.0 -Post Debridement (cm) - Depth 0.2 0.1 0.1 -Total Square (Post) (cm) 16.80 18.00 15.20 -Area of Debridement (cm) - Length 4.0 4.0 3.8 -Area of Debridement (cm) - Width 4.2 4.5 4.0 -Total Square (Area) (cm) 16.80 18.00 15.20 -Tunneling No No No -Undermining/Tunneling No No No -Circular Undermining No No No -Wound/Ulcer Outcome Not Healed Not Healed Not Healed -Ulcer Cleansing Rinsed/ Rinsed/ Rinsed/ Irrigated with Irrigated with Irrigated with Saline Saline Saline -Foul Odor after Cleansing No No No -Bioengineered Tissue No No No -Bleeding Controlled with Pressure Pressure Pressure -Offloading No No No -Treatment Response Procedure Procedure Procedure Tolerated Well Tolerated Well Tolerated Well -Debridement - Subq, 1st 20sq cm No No No #10 Left Medial Ankle -Time 09: 09:27 09:34 -Correct Patient Yes Yes Yes -Correct Side, Site, Position Yes Yes Yes -Correct Procedure Yes Yes Yes -Procedure Performed No Yes Yes -Type of Procedure Debridement Debridement -Clinical Debridement Subcutaneous Subcutaneous -Tissue Removed Subcutaneous Subcutaneous -Post Debridement (cm) - Length 4.5 4.0 -Post Debridement (cm) - Width 3.5 3.8 -Post Debridement (cm) - Depth 0.2 0.2 -Total Square (Post) (cm) 15.75 15.20 -Area of Debridement (cm) - Length 4.5 4.0 -Area of Debridement (cm) - Width 3.5 3.8 -Total Square (Area) (cm) 15.75 15.20 -Tunneling No No No -Undermining/Tunneling No No No -Circular Undermining No No No -Wound/Ulcer Outcome Not Healed Not Healed Not Healed -Ulcer Cleansing Not Cleansed Rinsed/ Rinsed/ Irrigated with Irrigated with Saline Saline -Foul Odor after Cleansing No No No -Bioengineered Tissue No Yes Yes -Type of Bioengineered Tissue Theraskin Theraskin -Expiration Date 08/18/24 08/18/24 -Product Lot Number [id number] -Percent Used 100 100 -Lot number of Saline Used [id number] -Bleeding Controlled with NA Pressure Pressure -Offloading No No No -Treatment Response Procedure Procedure Tolerated Well Tolerated Well -Debridement - Subq, 1st 20sq cm No No -Apply Skin Sub - 1st 25 sq cm - Legs 1 1 -Theraskin (per sq cm) 13 13 Pain Scale: 0-10 Numeric Is Patient Pain Free? Yes Yes Yes WC - Nurse 3 - General Ulcer D/C NN Start: 06/02/21 09:04 Freq: Status: Active Protocol: Activity Type Activity Date Activity User E-Sign Co-Sign Detail Recorded Client Recorded Date Recorded By Document 06/02/21 09:39 DL [id number] 06/02/21 09:44 DL Document 06/09/21 09:52 AK [id number] 06/09/21 09:54 AK Document 06/23/21 09:43 DL [id number] 06/23/21 09:47 DL 06/02/21 06/09/21 06/23/21 09:39 09:52 09:43 Wound Care Nurse 3 #12 Medial Superior LLE -Ulcer Cleansing Rinsed/ Rinsed/ Wound Cleanser Irrigated with Irrigated with Saline Saline -Foul Odor after Cleansing No No -Primary Dressing Applied Aquacel AG 4x4 Aquacel AG 4x4 Aquacel AG 4x4 -Primary Dressing Covered/Secured with Dry Gauze & Secured with Dry Gauze Roll Gauze, Tape,Other Secured with Tape -Other Covering keramex abd -Aquacel AG 4x4 1 1 1 #11 Medial Inferior LLE -Ulcer Cleansing Rinsed/ Rinsed/ Wound Cleanser Irrigated with Irrigated with Saline Saline -Foul Odor after Cleansing No No No -Primary Dressing Applied Aquacel AG 4x4 -Other Dressing aquacel ag aqaucel ag -Primary Dressing Covered/Secured with Dry Gauze & Secured with Dry Gauze Roll Gauze Tape -Aquacel AG 4x4 0 #10 Left Medial Ankle -Ulcer Cleansing Rinsed/ Irrigated with Saline -Foul Odor after Cleansing No No -Primary Dressing Applied Aquacel AG 4x4 -Other Dressing Theraskin Theraskin recheck -Primary Dressing Covered/Secured with Dry Gauze & Dry Gauze Roll Gauze, Secured with Tape -Other Covering ABD kerraMax -Aquacel AG 4x4 0 Treatment Response Procedure Procedure Tolerated Well Tolerated Well Pain Scale: 0-10 Numeric Is Patient Pain Free? Yes Yes WC - Visit Discharge Discharge Condition Stable Stable Stable Ambulatory Status Cane Ambulatory Ambulatory Transportation Private Auto Private Auto Medication Reconcilliation completed & Yes provided to patient/care provider Clinical Summary of Care Provided Yes Wound debrided: Left medial ankle Type of Debridement: Excisional debridement Anesthesia Used: 4% Lidocaine Solution Depth: Down to and including healthy tissue and in the subcutaneous layer Percentage of wound debrided: 100 Instrument Used: 5mm curette Tissue Removed: Slough and devitalized tissue Severity: Fat Layer Exposed Amount of bleeding with debridement: Mild Bleeding Controlled with: Pressure Patient tolerated procedure: Patient tolerated procedure well Additional Wound Wound debrided: Left lower extremity inferior Type of Debridement: Excisional debridement Anesthesia Used: 4% Lidocaine Solution Depth: Down to and including healthy tissue and in the subcutaneous layer Percentage of wound debrided: 100 Instrument Used: 5mm curette Tissue Removed: Slough and devitalized tissue Severity: Fat Layer Exposed Amount of bleeding with debridement: Mild Bleeding Controlled with: Pressure Patient tolerated procedure: Patient tolerated procedure well Additional Wound Wound debrided: Left lower extremity superior Type of Debridement: Excisional debridement Anesthesia Used: 4% Lidocaine Solution Depth: Down to and including healthy tissue and in the subcutaneous layer Percentage of wound debrided: 100 Instrument Used: 5mm curette Tissue Removed: Slough and devitalized tissue Severity: Fat Layer Exposed Amount of bleeding with debridement: Mild Bleeding Controlled with: Pressure Patient tolerated procedure: Patient tolerated procedure well Assessment/Plan Assessment/Plan (1) Ulcer of left lower extremity with fat layer exposed: CODE(S): L97.922 - Non-pressure chronic ulcer of unspecified part of left lower leg with fat layer exposed (2) PVD (peripheral vascular disease): CODE(S): I73.9 - Peripheral vascular disease, unspecified (3) Chronic venous insufficiency: CODE(S): I87.2 - Venous insufficiency (chronic) (peripheral) (4) Delayed wound healing: CODE(S): T14.8XXD - Other injury of unspecified body region, subsequent encounter PLAN: Debridement done as documented above, procedure was well-tolerated. 5th application of Thera Skin to left lower extremity (ankle) ulcer done today using 100% of product. Secured with Dermabond and covered with Adaptic touch. Will leave in place for 2 weeks. continue Aquacel Ag and Keramax care to all other ulcers. Strongly advised to change dressing daily to twice daily due to drainage. Continue use of compression stockings, leg elevation and exercise. Increased protein intake, protein supplements, zinc and vitamin C also recommended. Application for TheraSkin to his left lower extremity superior ulcer will be started as well. Chronic ulcer with no significant improvement in months. Follow-up next week. This note was generated with [employer]ORD dictation software. It may contain incorrect words, spelling, and punctuation that were not noted in checking the note before signing.
== END 2021-06-28 23:59 ==
LOC: WC 09:00
PROVIDERS: Visit Provider Internal Medicine
DX: I73.9 Peripheral vascular disease, unspecified (principal); I87.2 Venous insufficiency (chronic) (peripheral); R60.0 Localized edema; L97.822 Non-pressure chronic ulcer of other part of left lower leg with fat layer exposed; L97.322 Non-pressure chronic ulcer of left ankle with fat layer exposed
CPT/HCPCS: 11042; 11045; 15271; Q4121

== ENCOUNTER 2021-07-18 14:02 | Inpatient (IN) | payer BC, SELFPAY ==
[2021-07-18 14:04] VITALS: BP 155/107; PULSE 75; RESP 20; TEMP 36.3; O2SAT 98; BMI 34.8
--- NOTE | 2021-07-18 16:39 | EX.ED.DYSGE1 ---
HPI History of Present Illness Chief Complaint: Cellulitis Informant: patient Onset/Context/Timing Onset: Days Context: Gradual Onset Timing: Continuous Current Severity: Mild Maximum Severity: Moderate Narrative Narrative: 56-year-old male has past medical history of peripheral arterial disease with prior bilateral lower extremity bypass surgery. He is currently not on any anticoagulation. He has wounds on his left lower leg and a prior skin graft. States that since is progressively gotten worse he has noticed fever and chills and redness. He denies any purulent discharge he denies any trauma. He was seen today earlier in the wound care center and referred to the emergency department. Prior similar symptoms: Yes Recent Illness/Hospitalization: No PFSH [facility] Medical History (Updated 07/18/21 @ 18:[address] Ander Martinez MD) Stasis ulcer Home Medications aspirin 81 mg PO DAILY@0800 07/04/18 [History Last Taken Unknown] ibuprofen 400 mg PO Q6H PRN PRN 07/04/18 [History Last Taken Unknown] atorvastatin 20 mg PO QHS 07/18/21 [History Last Taken Unknown] hydrochlorothiazide 25 mg PO DAILY 07/18/21 [History Last Taken Unknown] Allergy/AdvReac Type Severity Reaction Status Date / Time ciprofloxacin [From Cipro] Allergy Rash Verified 07/18/21 16:44 ciprofloxacin HCl Allergy Rash Verified 07/18/21 16:44 [From Cipro] Social History Smoking Status: Former smoker ROS ROS ED ROS Narrative Fever and chills. Review of Systems ROS Unobtainable: Denies due to encephalopathy Constitutional Constitutional ED: Reports chills and fever(s) Eyes Eyes: Denies change in vision ENT ENT ED: Denies ear pain or sore throat Cardiovascular Cardiovascular: Denies chest pain Respiratory/Chest Respiratory/Chest: Denies dyspnea Gastrointestinal Gastrointestinal: Denies abdominal pain, diarrhea, nausea or vomiting Genitourinary Genitourinary ED: Denies dysuria Musculoskeletal Musculoskeletal: Denies myalgias Integumentary Denies rash Neurologic Neurologic: Denies headache(s) Psychiatric Psychiatric: Denies depression Endocrine Endocrinology: Denies polyuria Allergic/Immunologic Allergic/Immunologic ED: Denies urticaria EXAM Physical Exam Narrative Exam Narrative: Right male vital signs are stable afebrile. HEENT exam unremarkable. Lungs clear to auscultation. Heart regular rhythm no murmur. Abdomen soft nontender normal bowel sounds no peritoneal signs. Patient moving all 4 extremities. His left lower leg below the knee to the foot are multiple wounds. They are open. There is cellulitis. He is able to wiggle his toes. He has touch sensation. There is also lymphangitic streaking on the medial aspect of his thigh with lymphadenopathy in his left groin. Left hip knee and ankle have full range of motion and no signs of septic joints. Neurologically is awake and alert with no motor deficits. Const Vital Signs: 07/18/21 14:04 07/18/21 17:36 Temperature 97.4 F L 97.3 F L Temperature Source Temporal Temporal Pulse Rate 75 87 Respiratory Rate 20 H 16 Blood Pressure 155/107 H 112/87 H Blood Pressure Mean 123 95 Pulse Ox 98 98 Oxygen Delivery Method Room Air Room Air Positive well nourished and well developed; Negative for obese, cachectic, contractures or unkempt General Appearance ED: well developed and NAD; Negative for unkempt, cachectic or contractures Nutritional Appearance: Negative for cachectic or obese HEENT Reports moist mucous membranes Negative for trauma or tenderness Eyes PERRL and EOMs intact bilaterally Neck no lymphadenopathy, supple and no JVD General: Negative for tenderness Chest Wall inspection of chest normal and palpation of chest normal Resp normal respiratory effort and clear to auscultation bilaterally Effort and Inspection: Negative for pain with movement Auscultation: Negative for rales, rhonchi or wheezes Cardio regular rate, regular rhythm, S1 normal heart sound, S2 normal heart sound and no murmurs GI normal to inspection, nondistended, normoactive bowel sounds, non-tender, non-distended and no masses Inspection: Negative for abdominal distention Auscultation: normoactive bowel sounds Palpation: soft; Negative for tender, guarding or rebound tenderness present Back/Spine no CVA tenderness Extremity Negative for normal to inspection Extremity Narrative: Left lower leg multiple open wounds breakdown of the skin with cellulitis. Is able to wiggle his toes. He has normal touch sensation. There is lymphangitic streaking on the medial aspect of the left thigh with inguinal lymphadenopathy. Normal range of motion of the hip, knee and ankle. Neuro oriented x3 and CN's II-XII intact bilaterally Sensorium / Orientation: alert; Negative for lethargic or stuporous Motor Exam: strength 5/5 throughout Psych mental status grossly normal Appearance: Negative for unkempt Mood & Affect: Negative for depressed Skin no rashes or lesions noted and No no wounds Rashes: rashes noted Wounds: wounds noted MDM MDM MDM Narrative Medical decision making narrative: Patient has infected lower leg with known peripheral vascular disease. He will be started on IV Zosyn and vancomycin. Labs and x-ray are being obtained and he will be admitted. Repeat exam at 6:43 PM no change. Hospitalist will admit the patient. Lab Data Attestation: I reviewed the patient's lab results. Lab results narrative: White count 7. Hemoglobin 15. PT PTT INR normal. Electrolytes show a gap of 8. Creatinine 1.3. Glucose of 130. Labs: Laboratory Results - last 24 hr 07/18/21 07/18/21 07/18/21 16:30 16:30 16:30 WBC 7.1 RBC 5.16 Hgb 15.4 Hct 45.9 MCV 89.0 MCH 29.8 MCHC 33.6 RDW Std Deviation 42.8 RDW Coeff of Perico 13.1 Plt Count 202 MPV 11.2 Immature Gran % (Auto) 0.300 Neut % (Auto) 55.8 Lymph % (Auto) 22.1 Evans % (Auto) 21.0 H Eos % (Auto) 0.4 Baso % (Auto) 0.4 Absolute Neuts (auto) 4.0 Absolute Lymphs (auto) 1.57 Nucleated RBC % 0 PT 12.7 INR 1.0 APTT 26.9 Sodium 140 Potassium 3.3 L Chloride 105 Carbon Dioxide 27.0 Anion Gap 8 BUN 26 H Creatinine 1.32 H Estim Creat Clear Calc 61.00 Est GFR (MDRD) Af Amer 72 Est GFR (MDRD) Non-Af 59 L BUN/Creatinine Ratio 19.7 Glucose 130 H Calcium 9.4 Radiography Diagnostic Testing: Radiology Impression Tibia/Fibula X-Ray 07/18/21 16:45 IMPRESSION: Normal x-ray examination of the tibia and fibula. Electronically Signed: Anupam Melara MD at 17:07 EDT , Service support , Tib-fib x-ray interpreted by myself the radiologist shows no acute abnormality other than soft tissue swelling in the lower leg and heel area. There is no obvious osteomyelitis. There is no subcu air. Discharge Plan Triage Chief Complaint: Cellulitis ED Provider: Ander Martinez Dx/Rx/DC Orders Clinical Impression: Cellulitis of left leg, Lymphangitis, History of peripheral arterial disease Prescriptions: No Action aspirin 81 MG tablet,chewable 81 mg PO DAILY@0800 RF: 0 ibuprofen 200 MG tablet 400 mg PO Q6H PRN PRN (Reason: Pain) RF: 0 atorvastatin 20 mg Tablet 20 mg PO QHS RF: 0 hydrochlorothiazide 25 mg Tablet 25 mg PO DAILY RF: 0 Primary Care Provider: Care Physician,No Primary Referrals: Care Physician,No Primary [Primary Care Provider] - Disposition Disposition: Acute Care [facility]
--- NOTE | 2021-07-18 16:45 | RAD_ITS ---
STUDY: X-RAY - LEFT TIBIA AND FIBULA REASON FOR EXAM: Male, 56 years old. lower leg infection TECHNIQUE: 4 view(s) of the tibia and fibula were obtained. COMPARISON: None. FINDINGS: Normal visualized tibia. Normal visualized fibula. There is no demonstrated acute fracture. The soft tissue structures are unremarkable. RAD/Tibia & Fibula 2 Views IMPRESSION: Normal x-ray examination of the tibia and fibula. Electronically Signed: Anupam Melara MD at 17:07 EDT , Service support ,
[2021-07-18 16:53] LABS: Absolute Lymphocyte Count 1.57 X10^3/uL (0.83-4.51); Basophil# 0.03 X10^3/uL; Basophil% 0.4 % (0-1); Eosinophil# 0.03 X10^3/uL; Eosinophils% 0.4 % (0-5); Hematocrit 45.9 % (40-54); Hemoglobin 15.4 g/dL (13.0-16.5); Lymphocyte # 1.57 X10^3/ul (0.83-4.51); Lymphocyte % 22.1 % (19-41); Mean Corp Hgb Conc 33.6 g/dL (32-36); Mean Corpuscular Hgb 29.8 pg (27.0-32.0); Mean Platelet Vol. 11.2 fl (6.2-12.0); Monocyte# 1.49 X10^3/uL; NRBC Flagged by Analyzer 0 % (0-5); Neutrophil # 3.95 X10^3/uL (2.7-7.7); Neutrophil % 55.8 % (47-70); Platelet Count 202 K/mm3 (150-450); RBC Distribution Width CV 13.1 % (11.6-14.6); RBC Distribution Width SD 42.8 fl (35.1-43.9); Red Blood Count 5.16 M/mm3 (4.6-6.2); White Blood Count 7.1 K/mm3 (4.4-11.0)
[2021-07-18 16:56] LABS: Partial Thromboplast Time 26.9 Seconds (24.1-36.2); Prothrombin Time (Protime)PT. 12.7 SECONDS (11.7-14.9)
[2021-07-18 17:01] LABS: Anion Gap 8 (5-15); BUN 26 mg/dL (7-18); BUN/Creat Ratio 19.7 RATIO (10-20); Calcium,Total 9.4 mg/dL (8.5-10.1); Chloride 105 mmol/L (98-107); Creatinine, Serum 1.32 mg/dL (0.70-1.30); EST Glomerular Filtration Rate 59 mL/min (>60); Est Glom Filt Rate - Afr Amer 72 mL/min (>60); Glucose 130 mg/dL (74-106); Potassium 3.3 mmol/L (3.5-5.1); Sodium Level 140 mmol/L (136-145)
[2021-07-18 17:36] VITALS: BP 112/87; PULSE 87; RESP 16; TEMP 36.3; O2SAT 98
--- NOTE | 2021-07-18 19:02 | HP.PCM.HOS_ITS ---
HPI - General General Date of Admission: 07/18/21 HPI Narrative * RUBEN ALLEN, is a 56 M with a PMH as outlined who presents with a complaint of LLE pain and swelling. Symptoms had been going on for a day. He has a history of LLE ulcers for which he follows up at the wound center. He says he has had some vein stripping done by vascular surgery nad says he had endovenous laser ablation of the left and right great saphenous vein, small saphenous vein, left accessory saphenous vein and has an incompetent left calf cut roll machine offbearer vein located 15cm proximal to the left medial malleolus. He has apparently had previous arterial workup done with no intervention recommended by his vascular surgeon, as documented per his wound care physician's note. . Hd denied any fever, chills, nausea or vomiting. He admitted to warmth and pain of his LLE. Review of systems were otehrweise negative. CBC showed BP of 112/87, LA of 87, RR of 16 and temp of 97.3F. CBC showed hb of 15.4, wbc of 7.1, platelets of 202 and chemistry was significant for K of 3.3 and Cr of 1.32. He is being admitted to be managed for LLE cellulitis. He was started on IV vancomycin ad zosyn in the ED . [facility] Medical History (Updated 07/18/21 @ 19:[address] Cleo Holbrook MD) Stasis ulcer Home Medications aspirin 81 mg PO DAILY@0800 07/04/18 [History Last Taken Unknown] ibuprofen 400 mg PO Q6H PRN PRN 07/04/18 [History Last Taken Unknown] atorvastatin 20 mg PO QHS 07/18/21 [History Last Taken Unknown] hydrochlorothiazide 25 mg PO DAILY 07/18/21 [History Last Taken Unknown] Allergy/AdvReac Type Severity Reaction Status Date / Time ciprofloxacin [From Cipro] Allergy Rash Verified 07/18/21 16:44 ciprofloxacin HCl Allergy Rash Verified 07/18/21 16:44 [From Cipro] Social History Smoking Status: Former smoker ROS Constitutional Constitutional: Denies anorexia, chills, fatigue, fever(s), malaise or weakness Eyes Eyes: Denies change in vision ENT HEENT: Denies dysphagia, headache(s), nasal congestion or nasal discharge Cardiovascular Cardiovascular: Denies chest pain, dyspnea on exertion, edema, lightheadedness, orthopnea, palpitations, paroxysmal nocturnal dyspnea or rapid heart rate Respiratory/Chest Respiratory/Chest: Denies cough, dyspnea, productive cough, shortness of breath at rest or shortness of breath with exertion Gastrointestinal Gastrointestinal: Denies abdominal pain, constipation, diarrhea, nausea or vomiting Genitourinary Genitourinary: Denies dysuria Musculoskeletal Musculoskeletal: Denies arthralgias Neurologic Neurologic: Denies confusion, dizziness, focal weakness, numbness, syncope or tremor(s) Psychiatric Psychiatric: Denies anxiety Endocrine Endocrinology: Denies change in body appearance Hematologic/Lymphatic Hematologic/Lymphatic: Denies anemia Vital Signs Vital Signs Vital Signs: 07/18/21 14:04 07/18/21 17:36 Temperature 97.4 F L 97.3 F L Temperature Source Temporal Temporal Pulse Rate 75 87 Respiratory Rate 20 H 16 Blood Pressure 155/107 H 112/87 H Blood Pressure Mean 123 95 Pulse Ox 98 98 Oxygen Delivery Method Room Air Room Air Weight Weight: 236 lb 1.841 oz Body Mass Index (BMI) 34.8 Physical Exam Const oriented x3 and no apparent distress General Appearance: cooperative HEENT normocephalic, head/scalp atraumatic, hearing grossly normal bilaterally and moist oral mucous membranes Eyes PERRL, EOMs intact bilaterally and conjunctivae normal Neck no lymphadenopathy, supple and no JVD Resp normal respiratory effort and clear to auscultation bilaterally Cardio regular rate, regular rhythm, S1 normal heart sound, S2 normal heart sound and no murmurs GI normal to inspection, nondistended, normoactive bowel sounds, soft to palpation, non-tender and non-distended Extremity Extremity Narrative: as under skin Peripheral Pulses: Yes pulses 2+ throughout Skin Skin Narrative: has erythema of the LLE, from ankle to knee, with 2 ulcerations measuring ~ 8x 6cm on left may, with slough in floor and oozing scant pus. Differential warmth of LEs. Neuro oriented x3, CN's II-XII intact bilaterally and moves all extremities Sensorium / Orientation: awake Psych affect normal Results Lab / Micro Data Result Diagrams: 07/18/21 16:30 07/18/21 16:30 Labs: Laboratory Results - last 24 hr 07/18/21 16:30: WBC 7.1, RBC 5.16, Hgb 15.4, Hct 45.9, MCV 89.0, MCH 29.8, MCHC 33.6, RDW Std Deviation 42.8, RDW Coeff of Perico 13.1, Plt Count 202, MPV 11.2, Immature Gran % (Auto) 0.300, Neut % (Auto) 55.8, Lymph % (Auto) 22.1, [place] % (Auto) 21.0 H, Eos % (Auto) 0.4, Baso % (Auto) 0.4, Absolute Neuts (auto) 4.0, Absolute Lymphs (auto) 1.57, Nucleated RBC % 0 07/18/21 16:30: PT 12.7, INR 1.0, APTT 26.9 07/18/21 16:30: Sodium 140, Potassium 3.3 L, Chloride 105, Carbon Dioxide 27.0, Anion Gap 8, BUN 26 H, Creatinine 1.32 H, Estim Creat Clear Calc 61.00, Est GFR (MDRD) Af Amer 72, Est GFR (MDRD) Non-Af 59 L, BUN/Creatinine Ratio 19.7, Glucose 130 H, Calcium 9.4 Radiology Impression Tibia/Fibula X-Ray 07/18/21 16:45 IMPRESSION: Normal x-ray examination of the tibia and fibula. Electronically Signed: Anupam Melara MD at 17:07 EDT , Service support , Assessment & Plan Assessment/Plan (1) Venous stasis of lower extremity: (2) Cellulitis of left leg: PLAN: #Cellulitis and infected wounds of LLE * admit to med surg * consult wound care * started on IV vancomycin and zosyn, will continue * get blood cultures and wound cultures * xray of the left leg was normal * PT.OT consult. fall precautions * #History of venous stasis ulcers of the left lower extremity * Has had vein stripping and multiple LLE venous ablations in the past by vascular surgery; please refer to HPI. * currently wounds are infected and being managed as above #Hypokalemia: K is 3.3. Will replace and trend. #Elevated Cr * CR is 1.32; baseline is ~ 1.1. Will hydrate gently with IVF and trend #Hypertension; on HCTZ. #History of PAD * on aspirin and statin. * DVT prophylaxis: lovenox Charges/Coding Visit Charges Inpatient E&M: 88634 Init Hosp L3
[2021-07-18 19:14] VITALS: BP 134/93; PULSE 92; RESP 16; TEMP 36.3; O2SAT 97
[2021-07-18] MEDS: Potassium Chloride Oral Tablet 20 MEQ 40 MEQ PO (20:00)
[2021-07-18 22:34] VITALS: BP 140/88; PULSE 86; RESP 18; TEMP 36.1; O2SAT 100
[2021-07-19] VITALS (7 sets, daily range): BP systolic 114–152; BP diastolic 67–90; PULSE 84–107; RESP 16–18; TEMP 36.6–37.2; O2SAT 95–99; BMI 35.4
[2021-07-19] MEDS: 0.9% Normal Saline 1,000 ML 125 ML IV ×2 (00:08→15:35)
[2021-07-19] MEDS: Atorvastatin Calcium 20 MG Tablet PO ×2 (00:09→21:06)
--- NOTE | 2021-07-19 00:13 | PCM.RX.CS ---
Consult Pharmacy has been consulted to manage selected antiobiotic: Vancomycin Type of Consult: New start Suspected Infection: Skin/Soft tissue Prior Doses of Antibiotics Received/Current Regimen: Medications Vancomycin HCl 1,250 mg/ (Sodium Chloride) 275 mls @ 167 mls/hr IV Q12H ANURADHA Discontinued Medications Vancomycin HCl 1,500 mg/ (Sodium Chloride) 530 mls @ 250 mls/hr IV X1 ONE Stop: 07/18/21 18:45 Last Admin: 07/18/21 19:52 Dose: Infused Labs: Sodium 140 mmol/L (136-145) 07/18/21 16:30 Potassium 3.3 mmol/L (3.5-5.1) L 07/18/21 16:30 Chloride 105 mmol/L (98-107) 07/18/21 16:30 Carbon Dioxide 27.0 mmol/L (21.0-32.0) 07/18/21 16:30 Anion Gap 8 (5-15) 07/18/21 16:30 BUN 26 mg/dL (7-18) H 07/18/21 16:30 Creatinine 1.32 mg/dL (0.70-1.30) H 07/18/21 16:30 Est GFR (MDRD) Af Amer 72 mL/min (>60) 07/18/21 16:30 Est GFR (MDRD) Non-Af 59 mL/min (>60) L 07/18/21 16:30 BUN/Creatinine Ratio 19.7 RATIO (10-20) 07/18/21 16:30 Glucose 130 mg/dL (74-106) H 07/18/21 16:30 Weight used for dosin.1 kg Estimated Creatinine Clearance: 61 Goal Trough: 15-20 mcg/mL Pharmacy Plan for Drug Dosing: Pharmacy Service will continue to monitor and adjust dosing as required. Follow-Up Labs: Trough Vancomycin Labs to be done on [date and time ordered]: 07/20/21 @0500
[2021-07-19 07:16] LABS: Absolute Lymphocyte Count 0.78 X10^3/uL (0.83-4.51); Absolute Neutrophil Count 5.3 X10^3/uL (2.0-7.7); Basophil# 0.03 X10^3/uL; Basophil% 0.4 % (0-1); Eosinophil# 0.13 X10^3/uL; Eosinophils% 1.8 % (0-5); Hematocrit 41.5 % (40-54); Hemoglobin 13.9 g/dL (13.0-16.5); Lymphocyte # 0.78 X10^3/ul (0.83-4.51); Lymphocyte % 10.5 % (19-41); Mean Corp Hgb Conc 33.5 g/dL (32-36); Mean Corpuscular Hgb 29.9 pg (27.0-32.0); Mean Corpuscular Volume 89.2 fL (80-94); Mean Platelet Vol. 10.7 fl (6.2-12.0); Monocyte# 1.11 X10^3/uL; NRBC Flagged by Analyzer 0 % (0-5); Neutrophil # 5.31 X10^3/uL (2.7-7.7); Neutrophil % 71.6 % (47-70); Platelet Count 179 K/mm3 (150-450); RBC Distribution Width CV 13.2 % (11.6-14.6); RBC Distribution Width SD 43.5 fl (35.1-43.9); Red Blood Count 4.65 M/mm3 (4.6-6.2); White Blood Count 7.4 K/mm3 (4.4-11.0)
[2021-07-19 07:43] LABS: Anion Gap 6 (5-15); BUN 20 mg/dL (7-18); BUN/Creat Ratio 17.4 RATIO (10-20); Calcium,Total 8.3 mg/dL (8.5-10.1); Chloride 107 mmol/L (98-107); Creatinine, Serum 1.15 mg/dL (0.70-1.30); EST Glomerular Filtration Rate 69 mL/min (>60); Est Glom Filt Rate - Afr Amer 84 mL/min (>60); Estimated Creatinine Clearance 70.02 ml/min; Glucose 126 mg/dL (74-106); Potassium 3.1 mmol/L (3.5-5.1); Sodium Level 139 mmol/L (136-145)
[2021-07-19] MEDS: Aspirin 81 MG TAB.CHEW PO (08:34)
[2021-07-19] MEDS: Enoxaparin 40 MG/0.4 ML Syringe SC (08:35)
[2021-07-19] MEDS: hydroCHLOROthiazide 25 MG Tablet PO (08:35)
[2021-07-19] MEDS: Potassium Chloride Oral Tablet 20 MEQ 40 MEQ PO (08:39)
[2021-07-19 09:05] LABS: Magnesium 2.1 mg/dL (1.6-2.6)
--- NOTE | 2021-07-19 13:44 | WOUNDNOTE ---
wound photo: left medial lower leg
--- NOTE | 2021-07-19 14:11 | PN.HOSP_ITS ---
Subjective Subjective LLE feeling better. Noted rash on 07/17. Had not received abx until presentation 07/18. Objective Data Objective Data Vital Signs: Vital Signs Temp Pulse Resp BP Pulse Ox 36.7 C 102 H 18 151/90 H 98 07/19/21 12:31 07/19/21 12:31 07/19/21 12:31 07/19/21 12:31 07/19/21 12:31 Oxygen Delivery Method Room Air Weight: 108.7 kg Body Mass Index (BMI) 35.4 Intake & Output: Intake and Output for Last 24 Hours 07/17/21 07/18/21 07/19/21 23:59 23:59 23:59 Intake Total 630 / 630 1014.58 / 1014.58 Output Total 300 / 300 Balance 630 / 630 714.58 / 714.58 Lab / Micro Data Result Diagrams: 07/19/21 07:10 07/19/21 07:10 Labs: Laboratory Results - last 24 hr 07/18/21 16:30: WBC 7.1, RBC 5.16, Hgb 15.4, Hct 45.9, MCV 89.0, MCH 29.8, MCHC 33.6, RDW Std Deviation 42.8, RDW Coeff of Perico 13.1, Plt Count 202, MPV 11.2, Immature Gran % (Auto) 0.300, Neut % (Auto) 55.8, Lymph % (Auto) 22.1, [place] % (Auto) 21.0 H, Eos % (Auto) 0.4, Baso % (Auto) 0.4, Absolute Neuts (auto) 4.0, Absolute Lymphs (auto) 1.57, Nucleated RBC % 0 07/18/21 16:30: PT 12.7, INR 1.0, APTT 26.9 07/18/21 16:30: Sodium 140, Potassium 3.3 L, Chloride 105, Carbon Dioxide 27.0, Anion Gap 8, BUN 26 H, Creatinine 1.32 H, Estim Creat Clear Calc 61.00, Est GFR (MDRD) Af Amer 72, Est GFR (MDRD) Non-Af 59 L, BUN/Creatinine Ratio 19.7, Glucose 130 H, Calcium 9.4 07/19/21 07:10: WBC 7.4, RBC 4.65, Hgb 13.9, Hct 41.5, MCV 89.2, MCH 29.9, MCHC 33.5, RDW Std Deviation 43.5, RDW Coeff of Perico 13.2, Plt Count 179, MPV 10.7, Immature Gran % (Auto) 0.700, Neut % (Auto) 71.6 H, Lymph % (Auto) 10.5 L, [place] % (Auto) 15.0 H, Eos % (Auto) 1.8, Baso % (Auto) 0.4, Absolute Neuts (auto) 5.3, Absolute Lymphs (auto) 0.78 L, Nucleated RBC % 0 07/19/21 07:10: Sodium 139, Potassium 3.1 L, Chloride 107, Carbon Dioxide 26.0, Anion Gap 6, BUN 20 H, Creatinine 1.15, Estim Creat Clear Calc 70.02, Est GFR (MDRD) Af Amer 84, Est GFR (MDRD) Non-Af 69, BUN/Creatinine Ratio 17.4, Glucose 126 H, Calcium 8.3 L 07/19/21 07:10: Magnesium 2.1 Micro: Microbiology 07/18/21 22:40 Wound - Leg Gram Stain - Final 07/18/21 22:40 Wound - Leg Wound Culture - Preliminary Beta hemolytic organism Gram positive organism Radiography Diagnostic Testing: Radiology Impression Tibia/Fibula X-Ray 07/18/21 16:45 IMPRESSION: Normal x-ray examination of the tibia and fibula. Electronically Signed: Anupam Melara MD at 17:07 EDT , Service support , Physical Exam Const alert and oriented x3 Extremity no clubbing, cyanosis or edema Skin Skin Narrative: patchy macular warm rash on LLE, nonconfluent, no fluctuance. c lean based ulcer on may w/o erythem. Neuro Sensorium / Orientation: awake and alert Assessment & Plan Assessment/Plan (1) Cellulitis of left leg: PLAN: 1. LLE cellulitis * subjectively improved * Cx growing out Beta hemolytic organism and GPO * cont pip/tazo and vanc * monitor another day for culture finalization, then hopefully, can dc w PO abx * I am apprehensive about sending him home today, given h/o MRSA. 2. VTE prophylaxis: LMWH Charges/Coding Visit Charges Inpatient E&M: 89521 Subs Hosp L2
--- NOTE | 2021-07-19 16:28 | CHAPLAIN ---
Type of Pastoral Visit _x__ Initial Visit ___ Follow-up Visit ___ On-call Visit ___ General Patient Visit ___ Spiritual Assessment ___ Family Conference ___ Bereavement ___ Rapid Response ___ Code Blue ___ Other (describe below) Pastoral Care Referral From _x__ Patient ___ Family ___ Nurse ___ Physician ___ Family Consumer Scientist ___ Gang Vibrator Operator ___ Other (describe below) Sacrament/Intervention _x__ Active listening ___ Anointing ___ Yarsanism ___ Bereavement ___ Communion ___ Clara exploration ___ _x__ Life review _x__ Prayer ___ Reconciliation ___ Sacrament of Sick ___ Supportive presence ___ Wedding ___ Other (describe below) Pastoral Comments
[2021-07-19] MEDS: Juven (unflavored) Packet 1 PACKET PO (17:33)
--- NOTE | 2021-07-19 19:50 | PCS.PANDOC ---
PANDEMIC DOCUMENTATION INITIATED: Date: 07/18/2021 Time: 190
[2021-07-20 02:49] VITALS: BP 126/76; PULSE 109; RESP 18; TEMP 37.4; O2SAT 94
[2021-07-20] MEDS: Loperamide 2 MG Capsule PO (02:57)
[2021-07-20] MEDS: 0.9% Saline Lock 10 ML Syringe IV (05:37)
[2021-07-20 05:56] LABS: Vancomycin, Trough Level 10.6 ug/mL (5.0-15.0)
--- NOTE | 2021-07-20 06:43 | PCM.RX.CS ---
Consult Type of Consult: Follow-up Suspected Infection: Skin/Soft tissue Prior Doses of Antibiotics Received/Current Regimen: Medications Vancomycin HCl 1,500 mg/ (Sodium Chloride) 530 mls @ 250 mls/hr IV Q12H ANURADHA Vancomycin HCl 1,250 mg/ (Sodium Chloride) 275 mls @ 167 mls/hr IV Q12H ANURADHA Stop: 07/20/21 08:00 Last Admin: 07/20/21 05:27 Dose: 167 mls/hr Labs: Sodium 139 mmol/L (136-145) 07/19/21 07:10 Potassium 3.1 mmol/L (3.5-5.1) L 07/19/21 07:10 Chloride 107 mmol/L (98-107) 07/19/21 07:10 Carbon Dioxide 26.0 mmol/L (21.0-32.0) 07/19/21 07:10 Anion Gap 6 (5-15) 07/19/21 07:10 BUN 20 mg/dL (7-18) H 07/19/21 07:10 Creatinine 1.15 mg/dL (0.70-1.30) 07/19/21 07:10 Est GFR (MDRD) Af Amer 84 mL/min (>60) 07/19/21 07:10 Est GFR (MDRD) Non-Af 69 mL/min (>60) 07/19/21 07:10 BUN/Creatinine Ratio 17.4 RATIO (10-20) 07/19/21 07:10 Glucose 126 mg/dL (74-106) H 07/19/21 07:10 Vancomycin Trough 10.6 ug/mL (5.0-15.0) 07/20/21 05:12 Microbiology: Microbiology 07/18/21 22:40 Wound - Leg Gram Stain - Final 07/18/21 22:40 Wound - Leg Wound Culture - Preliminary Beta hemolytic organism Gram positive organism Weight used for dosin.7 kg Estimated Creatinine Clearance: 70 Goal Trough: 15-20 mcg/mL Pharmacy Plan for Drug Dosing: Vancomycin trough of 10.6 was below target range of 15-20. Will increase dose to 1500mg q12h and re-draw a trough prior to 4th dose of new regimen. Pharmacy Service will continue to monitor and adjust dosing as required. Follow-Up Labs: Trough Vancomycin Labs to be done on [date and time ordered]: 07/22/21 @0500
[2021-07-20 07:57] VITALS: BP 122/74; PULSE 105; RESP 18; TEMP 37.2; O2SAT 97
[2021-07-20] MEDS: Aspirin 81 MG TAB.CHEW PO (07:59)
[2021-07-20] MEDS: Juven (unflavored) Packet 1 PACKET PO (07:59)
[2021-07-20] MEDS: hydroCHLOROthiazide 25 MG Tablet PO (07:59)
[2021-07-20] MEDS: Enoxaparin 40 MG/0.4 ML Syringe SC (07:59)
--- NOTE | 2021-07-20 11:09 | PCM.DC ---
Discharge Instructions Diet Discharge Diet: Low fat / Low cholesterol and 2000 mg Sodium Diet Activity Discharge Activity: Return to Normal Activity Weight Bearing Status: Weight bearing as tolerated Follow Up Care Test Results: Test results from this visit will be discussed in further detail at your follow-up appointment, if applicable. Discharge Plan Admission Admit Date/Time: 07/18/21 19:16 Primary Reason for Your Visit: Acute LLE cellulitis Attending Provider: Kylah Marino Primary Care Provider: Jt PhysicianLina Primary Instructions Additional Instructions / Restrictions: Continue to follow-up with the wound clinic. Continue with current wound dressing. Complete your antibiotics. Discharge Orders/Prescriptions Prescriptions: New cephalexin 500 mg Capsule 500 mg PO Q6 7 Days Qty: 28 RF: 0 Continued aspirin 81 MG tablet,chewable 81 mg PO DAILY@0800 RF: 0 ibuprofen 200 MG tablet 400 mg PO Q6H PRN PRN (Reason: Pain) RF: 0 atorvastatin 20 mg Tablet 20 mg PO QHS RF: 0 hydrochlorothiazide 25 mg Tablet 25 mg PO DAILY RF: 0 Referrals / Follow Up: Care Physician,No Primary [Primary Care Provider] - Disposition Disposition (needs filled in before D/C Order can be placed): Home, Self Care
[2021-07-20 11:31] LABS: Anion Gap 11 (5-15); BUN 17 mg/dL (7-18); BUN/Creat Ratio 14.5 RATIO (10-20); Calcium,Total 8.3 mg/dL (8.5-10.1); Chloride 107 mmol/L (98-107); Creatinine, Serum 1.17 mg/dL (0.70-1.30); EST Glomerular Filtration Rate 68 mL/min (>60); Est Glom Filt Rate - Afr Amer 82 mL/min (>60); Estimated Creatinine Clearance 68.82 ml/min; Glucose 113 mg/dL (74-106); Potassium 3.2 mmol/L (3.5-5.1); Sodium Level 139 mmol/L (136-145)
--- NOTE | 2021-07-20 11:45 | CASEMGMT ---
RN IRMA EDUCATION ADVISER CM to room to meet with patient for initial transition planning/care coordination assessment. ABIGAIL SOLIS introduced self and role at [facility]. Pt voices understanding and consents to assessment at this time. Pt sitting up in bed in no distress at this time. Pt is A/O at this time and answers all questions appropriately. Care providers, pharmacy, and demographics verified/updated at this time. PCP: Dr Frausto @ [facility] Specialists: Wound Clinic--goes every Thurs. Preferred Pharmacy: [facility] retail Insurance: [employer] Prescription Benefit: Yes Living Will/HPOA: Pt does not currently have LW/HCPOA and declines info at this time. Pt made aware that he can contact as an out-pt and make appt in the future if he decides he would like to talk with someone about this or would like to utilize [facility] social work for advanced directive completion. Given Sap Basis Administrator Rac card with information and contact number. Pt expresses understanding. LNOK: Has 2 adult children. Lives w/girlfriend. Does not want anyone listed as NOK, person to notify, or emergency contact. Living Arrangements: Lives w/girlfriend in one-story home w/3 steps to enter. Independent. Transportation: Pt states drives self and states no transportation concerns at this time. DME: Denies using any DME and denies needs. HHC/SNF: No hx of SNF. Has had HHC in the past but does not remember name of agency. Pt wishes to return home and states has no concerns with going home at time of discharge. He denies need for HHC. Pt does daily dressing changes to wounds. States has all the supplies he needs. CM to follow for any discharge planning/needs. Pt voices no concerns/needs at this time. Advised pt to ask for CM if any questions/concerns/needs arise. Voices understanding. PLAN: Home w/discharge plans in place. Gin MARCUM RN, CM
--- NOTE | 2021-07-20 12:22 | DS.PCM_ITS ---
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: Status: Chronic Code(s): I83.213 - Varicose veins of right lower extremity with both ulcer of ankle and inflammation Medications at Discharge Home Medications aspirin 81 mg PO DAILY@0800 07/04/18 ibuprofen 400 mg PO Q6H PRN PRN 07/04/18 atorvastatin 20 mg PO QHS 07/18/21 hydrochlorothiazide 25 mg PO DAILY 07/18/21 cephalexin 500 mg PO Q6 7 Days #28 cap 07/20/21 Hospital Course Operations None Procedures None Summary of Care Provided Minutes Spent on Discharge: 45 Hospital Course: 56-year-old male with past medical history of chronic left lower leg wound, follows up with the wound center who comes in with progressive pain and swelling. Patient has had some vein stripping done by vascular surgery with endovenous laser ablation of the left and right great saphenous vein, small saphenous vein, left accessory saphenous vein and an incompetent left calf perf orator vein. He was found to have lower leg cellulitis and started on IV vancomycin and Zosyn. Patient's wound cultures grew staph aureus and strep group G. He was seen by the wound RN during this hospital stay. Patient continued to improve and was discharged on Keflex. He will follow-up with his primary care doctor as well as with the wound center. Weight / BMI Weight Weight: 108.7 kg Body Mass Index (BMI) 35.4 ABG / Lab / Microbiology Data Result Diagrams: 07/19/21 07:10 07/20/21 05:12 Laboratory: Laboratory Results - last 24 hr 07/20/21 05:12: Vancomycin Trough 10.6 07/20/21 05:12: Sodium 139, Potassium 3.2 L, Chloride 107, Carbon Dioxide 21.0, Anion Gap 11, BUN 17, Creatinine 1.17, Estim Creat Clear Calc 68.82, Est GFR (MDRD) Af Amer 82, Est GFR (MDRD) Non-Af 68, BUN/Creatinine Ratio 14.5, Glucose 113 H, Calcium 8.3 L Microbiology: Microbiology 07/18/21 22:40 Wound - Leg Gram Stain - Final 07/18/21 22:40 Wound - Leg Wound Culture - Preliminary Staphylococcus aureus Streptococcus group G D/C Instructions Discharge Diet: Low fat / Low cholesterol and 2000 mg Sodium Diet Weight Bearing Status: Weight bearing as tolerated Meaningful Use Info Meaningful Use Diagnoses (Choose all that apply): None applicable Discharge Plan Admission Admit Date/Time: 07/18/21 19:16 Primary Reason for Your Visit: Acute LLE cellulitis Attending Provider: Kylah Marino Primary Care Provider: George Frausto Instructions Additional Instructions / Restrictions: Continue to follow-up with the wound clinic. Continue with current wound dressing. Complete your antibiotics. Discharge Orders/Prescriptions Prescriptions: New cephalexin 500 mg Capsule 500 mg PO Q6 7 Days Qty: 28 RF: 0 Continued aspirin 81 MG tablet,chewable 81 mg PO DAILY@0800 RF: 0 ibuprofen 200 MG tablet 400 mg PO Q6H PRN PRN (Reason: Pain) RF: 0 atorvastatin 20 mg Tablet 20 mg PO QHS RF: 0 hydrochlorothiazide 25 mg Tablet 25 mg PO DAILY RF: 0 Referrals / Follow Up: Care Physician,No Primary [NON-STAFF] - Disposition Disposition (needs filled in before D/C Order can be placed): Home, Self Care Charges/Coding Visit Charges Inpatient E&M: 16287 Disch Hosp
== END 2021-07-20 12:43 | disposition home or self-care (01) | DRG 603 ==
LOC: ED 18:45 → MS3 20:11 → PCU 23:56 → MS2 07-19 13:07
PROVIDERS: Admitting Provider Student in an Organized Health Care Education/Training Program; Emergency Provider Emergency Medicine; PCP Family Medicine; Visit Provider Internal Medicine
DX: L03.116 Cellulitis of left lower limb (principal); L97.829 Non-pressure chronic ulcer of other part of left lower leg with unspecified severity; I83.028 Varicose veins of left lower extremity with ulcer other part of lower leg; I73.9 Peripheral vascular disease, unspecified; B95.62 Methicillin resistant Staphylococcus aureus infection as the cause of diseases classified elsewhere; B95.4 Other streptococcus as the cause of diseases classified elsewhere; I83.91 Asymptomatic varicose veins of right lower extremity; I10 Essential (primary) hypertension; E87.6 Hypokalemia; R79.89 Other specified abnormal findings of blood chemistry; Z79.82 Long term (current) use of aspirin; Z79.899 Other long term (current) drug therapy; Z87.891 Personal history of nicotine dependence
CPT/HCPCS: 36415; 73590; 80048; 80202; 83735; 85025; 85610; 85730; 87040; 87070; 87077; 87186; 87205; 97802; 99284; J7030; J7040; J7050; A4216

== ENCOUNTER 2021-07-21 09:00 | Outpatient (RCR) | payer BC, SELFPAY ==
[2021-06-29 00:27] VITALS: BP 151/76; PULSE 84; RESP 18; TEMP 36.7; O2SAT 99; BMI 31.4
[2021-06-30 09:04] VITALS: BP 156/89; PULSE 77; TEMP 36.1; BMI 31.4
--- NOTE | 2021-06-30 13:14 | PN.PCM_ITS ---
History of Present Illness Date of Service: 06/30/21 Chief Complaint: ulcers to the left lower leg History of Wound: This is a 54-year-old male presents to wound healing center with a long-standing history of chronic venous insufficiency, chronic venous hypertension, lower extremity edema, lower extremity pain, and chronic left lower extremity ulcer. 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 He is currently wearing graduated compression stockings which are documented to be 20-30 mmHg compression and these are thigh high. He reports great compliance with use. He is also had previous arterial work-up with no intervention recommended by letter, his vascular surgeon. He denies taking nutritional supplementation. He saw dermatology and had a biopsy of the ulcer site. He also was previously treated by infectious disease for various contaminations and infections. He is not antibiotics at this time nor does he have any redness or odor coming from the wound. He denies fever, chill, nausea, vomiting, loss of appetite. Subjective Subjective Has had 5 applications of TheraSkin to his left medial ankle ulcer. TheraSkin now approved for left superior ulcer. Denies any complaints at this time. Objective Data Objective Data Vital Signs: Vital Signs Temp Pulse Resp BP Pulse Ox 96.9 F L 77 18 156/89 H 99 06/30/21 09:04 06/30/21 09:04 06/29/21 00:27 06/30/21 09:04 06/29/21 00:27 Body Mass Index (BMI) 31.4 Charges/Coding Procedures Integumentary 150xxx-152xx: 23735 Skin sub graft trnk/arm/leg Physical Exam Const alert, oriented x3 and no apparent distress General Appearance: cooperative and comfortable Orientation / Consciousness: awake HEENT normocephalic Head and Scalp: normal to inspection, normocephalic and atraumatic Face and Sinus: normal facial exam Eyes EOMs intact bilaterally Neck full ROM and supple General: normal visual inspection Resp normal respiratory effort Effort and Inspection: able to speak in complete sentences GI non-tender Extremity normal to inspection General Extremity: edema Skin Wounds: wounds noted Neuro oriented x3 and CN's II-XII intact bilaterally Psych mental status grossly normal Appearance: grossly normal Debridement Note Debridement Note Wound debrided: Leg lower extremity ( Inferior ) Type of Debridement: Excisional debridement Depth: Down to and including healthy tissue and in the subcutaneous layer Percentage of wound debrided: 100 Instrument Used: 5mm curette Tissue Removed: Slough and devitalized tissue Severity: Fat Layer Exposed Amount of bleeding with debridement: Mild Bleeding Controlled with: Pressure Patient tolerated procedure: Patient tolerated procedure well Post-Debridement Measurements and Additional Note: Post-Debridement Measurements/Treatment - Nurse 1 - General Ulcer Assessment Start: 06/30/21 09:04 Freq: Status: Active Protocol: SHANTA Activity Type Activity Date Activity User E-Sign Co-Sign Detail Recorded Client Recorded Date Recorded By Document 06/30/21 09:04 ALFONSO [id number] 06/30/21 09:17 ALFONSO 06/30/21 09:04 WC - Today's Visit Information Type of service Follow-up Visit (Physician/WEATHERIZATION SPECIALIST ) Arrival Mode Ambulatory Patient Identification Verified (Name & Yes ) Patient Requires Transmission-Based No Precautions Height and Weight Body Mass Index (BMI) 31.4 BMI Classification Obese Vital Signs Temperature (97.8 F-99.1 F) 96.9 F L Temperature Source Temporal Pulse Rate (60-100) 77 Pulse Location Monitor Blood Pressure (90/60-120/80) 156/89 H Blood Pressure Mean (mm Hg) 111 Source Monitor History Since Last Visit- (Skip if this is Patient's initial visit) Have you changed medications since your No last visit? Any new allergies or adverse reactions No Had a fall/change in ADL's that may No increase risk of falls Signs or symptoms of abuse and/or No neglect since last visit Have you been in the hospital since your No last visit? Has dressing in place as prescribed Yes Has compression in place as prescribed No Has offloadiing in place as prescribed N/A Left Footwear Regular Shoe Right Footwear Regular Shoe - Nurse 1 - General Ulcer Measurement Start: 06/30/21 09:04 Freq: Status: Active Protocol: Activity Type Activity Date Activity User E-Sign Co-Sign Detail Recorded Client Recorded Date Recorded By Document 06/30/21 09:04 ALFONSO [id number] 06/30/21 09:17 ALFONSO 06/30/21 09:04 Wound Center Nurse 1 #12 Medial Superior LLE -Combined with other wound No -Current Size (cm) - Length 1.7 -Current Size (cm) - Width 2 -Current Size (cm) - Depth 0.1 -Total Square Cm 3.4 -Photo Taken No -Tunneling No -Undermining/Tunneling No -Circular Undermining No -Change in Wound Grade/Stage No -Exudate Amt Large -Exudate Type Serosanguineous -Wound Margin Distinct, Outline Attached -Slough/Fibrin Yes -Necrosis Amt Large (67-100%) -Necrotic Tissue Type Adherent Slough -Structure Exposed N/A -Texture (Ara-wound Skin Appearance) No Abnormality, Assessed -Moisture (Ara-wound Skin Appearance) No Abnormality, Assessed -Color (Ara-wound Skin Appearance) No Abnormality, Assessed -Temperature (Ara-wound Skin No Abnormality Appearance) (Pt Warm) -Tenderness on Palpation (Ara-wound No Skin Appearance) -Ulcer Cleansing Rinsed/ Irrigated with Saline -Anesthetic Used 4% Lidocaine Solution #11 Medial Inferior LLE -Combined with other wound No -Current Size (cm) - Length 3.5 -Current Size (cm) - Width 4 -Current Size (cm) - Depth 0.1 -Total Square Cm 14.0 -Photo Taken No -Tunneling No -Undermining/Tunneling No -Circular Undermining No -Change in Wound Grade/Stage No -Exudate Amt Large -Exudate Type Serosanguineous -Wound Margin Distinct, Outline Attached -Granulation Amt Small (1-33%) -Granulation Quality [place] -Slough/Fibrin No -Necrosis Amt Large (67-100%) -Necrotic Tissue Type Adherent Slough -Structure Exposed N/A -Texture (Ara-wound Skin Appearance) No Abnormality, Assessed -Moisture (Ara-wound Skin Appearance) No Abnormality, Assessed -Color (Ara-wound Skin Appearance) No Abnormality, Assessed -Temperature (Ara-wound Skin No Abnormality Appearance) (Pt Warm) -Ulcer Cleansing Rinsed/ Irrigated with Saline -Anesthetic Used 4% Lidocaine Solution Left Calf (cm) 35 Left Ankle (cm) 23 WC - Nurse 2 - General Ulcer CM Notes Start: 06/30/21 09:04 Freq: Status: Active Protocol: Activity Type Activity Date Activity User E-Sign Co-Sign Detail Recorded Client Recorded Date Recorded By Document 06/30/21 09:27 OH [id number] 06/30/21 09:43 OH 06/30/21 09:27 Wound Center Nurse 2 #12 Medial Superior LLE -Time 09:27 -Correct Patient Yes -Correct Side, Site, Position Yes -Correct Procedure Yes -Procedure Performed Yes -Type of Procedure Debridement -Clinical Debridement Subcutaneous -Tissue Removed Subcutaneous -Post Debridement (cm) - Length 1.8 -Post Debridement (cm) - Width 1.9 -Post Debridement (cm) - Depth 0.1 -Total Square (Post) (cm) 3.42 -Area of Debridement (cm) - Length 1.8 -Area of Debridement (cm) - Width 1.9 -Total Square (Area) (cm) 3.42 -Tunneling No -Undermining/Tunneling No -Circular Undermining No -Wound/Ulcer Outcome Not Healed -Ulcer Cleansing Rinsed/ Irrigated with Saline -Bioengineered Tissue Yes -Type of Bioengineered Tissue Theraskin -Expiration Date 08/18/24 -Product Lot Number [id number] -Percent Used 100 -Lot number of Saline Used [id number] -Bleeding Controlled with Pressure -Offloading No -Treatment Response Procedure Tolerated Well -Debridement - Subq, 1st 20sq cm No -Theraskin (per sq cm) 13 #11 Medial Inferior LLE -Time 09:34 -Correct Patient Yes -Correct Side, Site, Position Yes -Correct Procedure Yes -Procedure Performed Yes -Type of Procedure Debridement -Clinical Debridement Subcutaneous -Tissue Removed Subcutaneous -Post Debridement (cm) - Length 3.3 -Post Debridement (cm) - Width 3.5 -Post Debridement (cm) - Depth 0.1 -Total Square (Post) (cm) 11.55 -Area of Debridement (cm) - Length 3.3 -Area of Debridement (cm) - Width 3.5 -Total Square (Area) (cm) 11.55 -Tunneling No -Undermining/Tunneling No -Circular Undermining No -Wound/Ulcer Outcome Not Healed -Ulcer Cleansing Rinsed/ Irrigated with Saline -Bioengineered Tissue No -Bleeding Controlled with Pressure -Debridement - Subq, 1st 20sq cm Yes #10 Left Medial Ankle -Time 09:36 -Correct Patient Yes -Correct Side, Site, Position Yes -Correct Procedure Yes -Procedure Performed No -Wound/Ulcer Outcome Not Healed -Other Theraskin adaptic touch intact Additional Wound Wound debrided: Left lower extremity ( Superior ) Type of Debridement: Excisional debridement Anesthesia Used: 4% Lidocaine Solution Depth: Down to and including healthy tissue Percentage of wound debrided: 100 Instrument Used: 5mm curette Tissue Removed: Slough and devitalized tissue Severity: Fat Layer Exposed Amount of bleeding with debridement: Mild Bleeding Controlled with: Pressure Patient tolerated procedure: Patient tolerated procedure well Assessment/Plan Assessment/Plan (1) Ulcer of left lower extremity with fat layer exposed: CODE(S): L97.922 - Non-pressure chronic ulcer of unspecified part of left lower leg with fat layer exposed (2) PVD (peripheral vascular disease): CODE(S): I73.9 - Peripheral vascular disease, unspecified (3) Chronic venous insufficiency: CODE(S): I87.2 - Venous insufficiency (chronic) (peripheral) (4) Delayed wound healing: CODE(S): T14.8XXD - Other injury of unspecified body region, subsequent encounter PLAN: Debridement done as documented above, procedure was well-tolerated. 1st application of Thera Skin to left lower extremity superior ulcer done today using 100% of product. Secured with Dermabond and covered with Adaptic touch. Will leave in place for 2 weeks. TheraSkin to left medial ankle ulcer left in place. Strongly advised to change dressing daily to twice daily due to drainage. Continue use of compression stockings, leg elevation and exercise. Increased protein intake, protein supplements, zinc and vitamin C also recommended. His questions were answered and was advised to call with any further questions or concerns. Follow-up in a week. This note was generated with [employer] dictation software. It may contain incorrect words, spelling, and punctuation that were not noted in checking the note before signing.
[2021-07-07 09:07] VITALS: BP 149/84; PULSE 74; TEMP 36.2; BMI 31.4
--- NOTE | 2021-07-07 10:22 | PN.PCM_ITS ---
History of Present Illness Date of Service: 07/07/21 Chief Complaint: ulcers to the left lower leg History of Wound: This is a 54-year-old male presents to wound healing center with a long-standing history of chronic venous insufficiency, chronic venous hypertension, lower extremity edema, lower extremity pain, and chronic left lower extremity ulcer. 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 He is currently wearing graduated compression stockings which are documented to be 20-30 mmHg compression and these are thigh high. He reports great compliance with use. He is also had previous arterial work-up with no intervention recommended by letter, his vascular surgeon. He denies taking nutritional supplementation. He saw dermatology and had a biopsy of the ulcer site. He also was previously treated by infectious disease for various contaminations and infections. He is not antibiotics at this time nor does he have any redness or odor coming from the wound. He denies fever, chill, nausea, vomiting, loss of appetite. Subjective Subjective Has completed TheraSkin applications to his left medial ankle ulcer. Has had 1 application of TheraSkin to his left lower extremity superior ulcer. Denies any new concerns at this time. Objective Data Objective Data Vital Signs: Vital Signs Temp Pulse Resp BP Pulse Ox 97.1 F L 74 18 149/84 H 99 07/07/21 09:07 07/07/21 09:07 06/29/21 00:27 07/07/21 09:07 06/29/21 00:27 Body Mass Index (BMI) 31.4 Charges/Coding Procedures Integumentary 111xxx-113xx: 78943 Lakeisha subq tissue 20 sq cm/< 150xxx-152xx: [id number] Skin sub graft trnk/arm/leg Physical Exam Const alert, oriented x3 and no apparent distress General Appearance: cooperative and comfortable Orientation / Consciousness: awake HEENT normocephalic Head and Scalp: normal to inspection, normocephalic and atraumatic Face and Sinus: normal facial exam Eyes EOMs intact bilaterally Neck full ROM and supple General: normal visual inspection Resp normal respiratory effort Effort and Inspection: able to speak in complete sentences GI non-tender Extremity normal to inspection General Extremity: edema Skin Wounds: wounds noted Neuro oriented x3 and CN's II-XII intact bilaterally Psych mental status grossly normal Appearance: grossly normal Debridement Note Debridement Note Wound debrided: Left lower extremity superior Type of Debridement: Excisional debridement Anesthesia Used: 4% Lidocaine Solution Depth: Down to and including healthy tissue and in the subcutaneous layer Percentage of wound debrided: 100 Instrument Used: 5mm curette Severity: Fat Layer Exposed Amount of bleeding with debridement: Mild Bleeding Controlled with: Pressure Patient tolerated procedure: Patient tolerated procedure well Post-Debridement Measurements and Additional Note: Post-Debridement Measurements/Treatment - Nurse 1 - General Ulcer Assessment Start: 06/30/21 09:04 Freq: Status: Active Protocol: KIMBERLY.[employer] Activity Type Activity Date Activity User E-Sign Co-Sign Detail Recorded Client Recorded Date Recorded By Document 06/30/21 09:04 ALFONSO [id number] 06/30/21 09:17 AK Document 07/07/21 09:07 REINA [id number] 07/07/21 09:13 REINA 06/30/21 07/07/21 09:04 09:07 - Today's Visit Information Type of service Follow-up Visit Initial Visit (Physician/BAKER PASTRY ) Arrival Mode Ambulatory Ambulatory Patient Identification Verified (Name & Yes Yes ) Patient Requires Transmission-Based No Precautions Height and Weight Body Mass Index (BMI) 31.4 31.4 BMI Classification Obese Obese Vital Signs Temperature (97.8 F-99.1 F) 96.9 F L 97.1 F L Temperature Source Temporal Oral Pulse Rate (60-100) 77 74 Pulse Location Monitor Monitor Blood Pressure (90/60-120/80) 156/89 H 149/84 H Blood Pressure Mean (mm Hg) 111 105 Source Monitor Monitor Position Semi-Fowlers Blood Pressure Location Left Arm History Since Last Visit- (Skip if this is Patient's initial visit) Have you changed medications since your No No last visit? Any new allergies or adverse reactions No No Had a fall/change in ADL's that may No No increase risk of falls Signs or symptoms of abuse and/or No No neglect since last visit Have you been in the hospital since your No No last visit? Has dressing in place as prescribed Yes Yes Has compression in place as prescribed No Yes Has offloadiing in place as prescribed N/A N/A Experienced any changes in pain level or No management Left Footwear Regular Shoe Regular Shoe Right Footwear Regular Shoe Regular Shoe Pain Scale: 0-10 Numeric Is Patient Pain Free? Yes WC - Nurse 1 - General Ulcer Measurement Start: 06/30/21 09:04 Freq: Status: Active Protocol: Activity Type Activity Date Activity User E-Sign Co-Sign Detail Recorded Client Recorded Date Recorded By Document 06/30/21 09:04 AK [id number] 06/30/21 09:17 AK Document 07/07/21 09:07 KR [id number] 07/07/21 09:13 KR 06/30/21 07/07/21 09:04 09:07 Wound Center Nurse 1 #12 Medial Superior LLE -Combined with other wound No -Current Size (cm) - Length 1.7 0.1 -Current Size (cm) - Width 2 0.1 -Current Size (cm) - Depth 0.1 0.1 -Total Square Cm 3.4 0.01 -Photo Taken No -Tunneling No -Undermining/Tunneling No -Circular Undermining No -Change in Wound Grade/Stage No -Exudate Amt Large None Present -Exudate Type Serosanguineous -Wound Margin Distinct, Outline Attached -Granulation Amt None Present (0 %) -Slough/Fibrin Yes -Necrosis Amt Large (67-100%) None Present (0 %) -Necrotic Tissue Type Adherent Slough -Structure Exposed N/A -Texture (Ara-wound Skin Appearance) No Abnormality, No Abnormality, Assessed Assessed -Moisture (Ara-wound Skin Appearance) No Abnormality, No Abnormality, Assessed Assessed -Color (Ara-wound Skin Appearance) No Abnormality, No Abnormality, Assessed Assessed -Temperature (Ara-wound Skin No Abnormality No Abnormality Appearance) (Pt Warm) (Pt Warm) -Tenderness on Palpation (Ara-wound No No Skin Appearance) -Ulcer Cleansing Rinsed/ Irrigated with Saline -Anesthetic Used 4% Lidocaine Solution #11 Medial Inferior LLE -Combined with other wound No -Current Size (cm) - Length 3.5 0.1 -Current Size (cm) - Width 4 0.1 -Current Size (cm) - Depth 0.1 0.1 -Total Square Cm 14.0 0.01 -Photo Taken No -Tunneling No -Undermining/Tunneling No -Circular Undermining No -Change in Wound Grade/Stage No -Exudate Amt Large -Exudate Type Serosanguineous -Wound Margin Distinct, Distinct, Outline Outline Attached Attached -Granulation Amt Small (1-33%) None Present (0 %) -Granulation Quality [place] -Slough/Fibrin No No -Necrosis Amt Large (67-100%) None Present (0 %) -Necrotic Tissue Type Adherent Slough -Structure Exposed N/A -Texture (Ara-wound Skin Appearance) No Abnormality, No Abnormality, Assessed Assessed -Moisture (Ara-wound Skin Appearance) No Abnormality, No Abnormality, Assessed Assessed -Color (Ara-wound Skin Appearance) No Abnormality, No Abnormality, Assessed Assessed -Temperature (Ara-wound Skin No Abnormality No Abnormality Appearance) (Pt Warm) (Pt Warm) -Tenderness on Palpation (Ara-wound No Skin Appearance) -Ulcer Cleansing Rinsed/ Irrigated with Saline -Anesthetic Used 4% Lidocaine Solution #10 Left Medial Ankle -Current Size (cm) - Length 4.3 -Current Size (cm) - Width 3.6 -Current Size (cm) - Depth 0.1 -Total Square Cm 15.48 -Exudate Amt Medium -Exudate Type Serous -Wound Margin Distinct, Outline Attached -Granulation Amt Medium (34-66%) -Granulation Quality Red -Necrosis Amt Medium (34-66%) -Necrotic Tissue Type Adherent Slough -Texture (Ara-wound Skin Appearance) Assessed, Scarring -Moisture (Ara-wound Skin Appearance) No Abnormality, Assessed -Color (Ara-wound Skin Appearance) No Abnormality, Assessed -Temperature (Ara-wound Skin No Abnormality Appearance) (Pt Warm) -Tenderness on Palpation (Ara-wound No Skin Appearance) -Ulcer Cleansing soap and water -Foul Odor after Cleansing No -Anesthetic Used 4% Lidocaine Solution Left Calf (cm) 35 Left Ankle (cm) 23 WC - Nurse 2 - General Ulcer CM Notes Start: 06/30/21 09:04 Freq: Status: Active Protocol: Activity Type Activity Date Activity User E-Sign Co-Sign Detail Recorded Client Recorded Date Recorded By Document 06/30/21 09:27 MT [id number] 06/30/21 09:43 MT Edit Result 06/30/21 09:27 MT (1) [id number] 07/01/21 13:34 PL Document 07/07/21 09:25 MT [id number] 07/07/21 09:43 MT (1) #12 Medial Superior LLE - Apply Skin Sub - 1st 25 sq cm - Legs => 1 06/30/21 07/07/21 09:27 09:25 Wound Center Nurse 2 #12 Medial Superior LLE -Time 09: 09:28 -Correct Patient Yes Yes -Correct Side, Site, Position Yes Yes -Correct Procedure Yes Yes -Procedure Performed Yes Yes -Type of Procedure Debridement Debridement -Clinical Debridement Subcutaneous Subcutaneous -Tissue Removed Subcutaneous Subcutaneous -Post Debridement (cm) - Length 1.8 1.9 -Post Debridement (cm) - Width 1.9 1.8 -Post Debridement (cm) - Depth 0.1 0.1 -Total Square (Post) (cm) 3.42 3.42 -Area of Debridement (cm) - Length 1.8 1.9 -Area of Debridement (cm) - Width 1.9 1.8 -Total Square (Area) (cm) 3.42 3.42 -Tunneling No No -Undermining/Tunneling No No -Circular Undermining No -Wound/Ulcer Outcome Not Healed Not Healed -Ulcer Cleansing Rinsed/ Wound Cleanser Irrigated with Saline -Foul Odor after Cleansing No -Bioengineered Tissue Yes Yes -Type of Bioengineered Tissue Theraskin Theraskin -Expiration Date 08/18/24 12/22/24 -Product Lot Number [id number] -Percent Used 100 100 -Lot number of Saline Used [id number] -Bleeding Controlled with Pressure Pressure -Offloading No No -Treatment Response Procedure Procedure Tolerated Well Tolerated Well -Debridement - Subq, 1st 20sq cm No No -Apply Skin Sub - 1st 25 sq cm - Legs 1 -Theraskin (per sq cm) 13 6 #11 Medial Inferior LLE -Time 09:34 09:41 -Correct Patient Yes Yes -Correct Side, Site, Position Yes Yes -Correct Procedure Yes Yes -Procedure Performed Yes No -Type of Procedure Debridement -Clinical Debridement Subcutaneous -Tissue Removed Subcutaneous -Post Debridement (cm) - Length 3.3 -Post Debridement (cm) - Width 3.5 -Post Debridement (cm) - Depth 0.1 -Total Square (Post) (cm) 11.55 -Area of Debridement (cm) - Length 3.3 -Area of Debridement (cm) - Width 3.5 -Total Square (Area) (cm) 11.55 -Tunneling No No -Undermining/Tunneling No No -Circular Undermining No -Wound/Ulcer Outcome Not Healed Not Healed -Ulcer Cleansing Rinsed/ Irrigated with Saline -Foul Odor after Cleansing No -Bioengineered Tissue No -Bleeding Controlled with Pressure -Other theraskin intact -Offloading No -Debridement - Subq, 1st 20sq cm Yes #10 Left Medial Ankle -Time 09:36 09:42 -Correct Patient Yes Yes -Correct Side, Site, Position Yes Yes -Correct Procedure Yes Yes -Procedure Performed No Yes -Type of Procedure Debridement -Clinical Debridement Subcutaneous -Tissue Removed Subcutaneous -Post Debridement (cm) - Length 3.6 -Post Debridement (cm) - Width 4.0 -Post Debridement (cm) - Depth 0.2 -Total Square (Post) (cm) 14.40 -Area of Debridement (cm) - Length 3.6 -Area of Debridement (cm) - Width 4.0 -Total Square (Area) (cm) 14.40 -Tunneling No -Undermining/Tunneling No -Circular Undermining No -Wound/Ulcer Outcome Not Healed Not Healed -Ulcer Cleansing Rinsed/ Irrigated with Saline -Foul Odor after Cleansing No -Bioengineered Tissue No -Bleeding Controlled with Pressure -Other Theraskin adaptic touch intact -Offloading No -Treatment Response Procedure Tolerated Well -Debridement - Subq, 20sq cm Yes - Nurse 3 - General Ulcer D/C NN Start: 06/30/21 09:04 Freq: Status: Active Protocol: Activity Type Activity Date Activity User E-Sign Co-Sign Detail Recorded Client Recorded Date Recorded By Document 07/07/21 09:47 ML [id number] 07/07/21 09:48 ML 07/07/21 09:47 Wound Care Nurse 3 -Primary Dressing Applied Promogran -Primary Dressing Covered/Secured with Dry Gauze, Secured with Tape -Promogran 2 Pain Scale: 0-10 Numeric Is Patient Pain Free? Yes - Visit Discharge Discharge Condition Stable Ambulatory Status Ambulatory Transportation Private Auto Additional Wound Wound debrided: Left medial ankle Type of Debridement: Excisional debridement Anesthesia Used: 4% Lidocaine Solution Depth: Down to and including healthy tissue and in the subcutaneous layer Percentage of wound debrided: 100 Instrument Used: 5mm curette Tissue Removed: Slough and devitalized tissue Severity: Fat Layer Exposed Amount of bleeding with debridement: Mild Bleeding Controlled with: Pressure Patient tolerated procedure: Patient tolerated procedure well Assessment/Plan Assessment/Plan (1) Ulcer of left lower extremity with fat layer exposed: CODE(S): L97.922 - Non-pressure chronic ulcer of unspecified part of left lower leg with fat layer exposed (2) PVD (peripheral vascular disease): CODE(S): I73.9 - Peripheral vascular disease, unspecified (3) Chronic venous insufficiency: CODE(S): I87.2 - Venous insufficiency (chronic) (peripheral) (4) Delayed wound healing: CODE(S): T14.8XXD - Other injury of unspecified body region, subsequent encounter PLAN: Debridement done as documented above, procedure was well-tolerated. 2nd application of Thera Skin to left lower extremity superior ulcer done today using 100% of product. Secured with Dermabond and covered with Adaptic touch. Will leave in place for 1 week. Promogran to other ulcers. Continue care max care, change daily to twice daily depending on drainage. Continue use of compression stockings, leg elevation and exercise. Increased protein intake, protein supplements, zinc and vitamin C also recommended. His questions were answered and was advised to call with any further questions or concerns. Follow-up in a week. This note was generated with [employer] dictation software. It may contain incorrect words, spelling, and punctuation that were not noted in checking the note before signing.
[2021-07-14 09:03] VITALS: BP 152/82; PULSE 83; TEMP 36.1; BMI 31.4
--- NOTE | 2021-07-14 10:32 | PN.PCM_ITS ---
History of Present Illness Date of Service: 07/14/21 Chief Complaint: ulcers to the left lower leg History of Wound: This is a 54-year-old male presents to wound healing center with a long-standing history of chronic venous insufficiency, chronic venous hypertension, lower extremity edema, lower extremity pain, and chronic left lower extremity ulcer. The patient has previously undergone endovenous laser ablation of the left and right great saphenous vein, the small saphenous vein, the left accessory saphenous vein, and an incompetent left calf lab associate vein located 15 cm proximal to the left medial malleolus. He is currently wearing graduated compression stockings which are documented to be 20-30 mmHg compression and these are thigh high. He reports great compliance with use. He is also had previous arterial work-up with no intervention recommended by letter, his vascular surgeon. He denies taking nutritional supplementation. He saw dermatology and had a biopsy of the ulcer site. He also was previously treated by infectious disease for various contaminations and infections. He is not antibiotics at this time nor does he have any redness or odor coming from the wound. He denies fever, chill, nausea, vomiting, loss of appetite. Subjective Subjective Has completed TheraSkin applications to his left medial ankle ulcer. Has had 2 applications of TheraSkin to his left lower extremity superior ulcer. Denies a ny new concerns at this time. Objective Data Objective Data Vital Signs: Vital Signs Temp Pulse Resp BP Pulse Ox 96.9 F L 83 18 152/82 H 99 07/14/21 09:03 07/14/21 09:03 06/29/21 00:27 07/14/21 09:03 06/29/21 00:27 Body Mass Index (BMI) 31.4 Charges/Coding Procedures Integumentary 111xxx-113xx: [id number] Lakeisha subq tissue 20 sq cm/< 150xxx-152xx: 10651 Skin sub graft trnk/arm/leg Physical Exam Const alert, oriented x3 and no apparent distress General Appearance: cooperative and comfortable Orientation / Consciousness: awake HEENT normocephalic Head and Scalp: normal to inspection, normocephalic and atraumatic Face and Sinus: normal facial exam Eyes EOMs intact bilaterally Neck full ROM and supple General: normal visual inspection Resp normal respiratory effort Effort and Inspection: able to speak in complete sentences GI non-tender Extremity normal to inspection General Extremity: edema Skin Wounds: wounds noted Neuro oriented x3 and CN's II-XII intact bilaterally Psych mental status grossly normal Appearance: grossly normal Debridement Note Debridement Note Wound debrided: Left medial ankle Type of Debridement: Excisional debridement Anesthesia Used: 4% Lidocaine Solution Depth: Down to and including healthy tissue and in the subcutaneous layer Percentage of wound debrided: 100 Instrument Used: 5mm curette Tissue Removed: Slough and devitalized tissue Severity: Fat Layer Exposed Amount of bleeding with debridement: Mild Bleeding Controlled with: Pressure Patient tolerated procedure: Patient tolerated procedure well Post-Debridement Measurements and Additional Note: Post-Debridement Measurements/Treatment - Nurse 1 - General Ulcer Assessment Start: 06/30/21 09:04 Freq: Status: Active Protocol: SHANTA Activity Type Activity Date Activity User E-Sign Co-Sign Detail Recorded Client Recorded Date Recorded By Document 06/30/21 09:04 ALFONSO [id number] 06/30/21 09:17 AK Document 07/07/21 09:07 KR [id number] 07/07/21 09:13 KR Document 07/14/21 09:03 AK [id number] 07/14/21 09:11 AK 06/30/21 07/07/21 07/14/21 09:04 09:07 09:03 - Today's Visit Information Type of service Follow-up Visit Initial Visit Follow-up Visit (Physician/MANAGER SECURITY AND SAFETY (Physician/MANAGER SECURITY AND SAFETY ) ) Arrival Mode Ambulatory Ambulatory Ambulatory Patient Identification Verified (Name & Yes Yes Yes ) Patient Requires Transmission-Based No Precautions Height and Weight Body Mass Index (BMI) 31.4 31.4 31.4 BMI Classification Obese Obese Obese Vital Signs Temperature (97.8 F-99.1 F) 96.9 F L 97.1 F L 96.9 F L Temperature Source Temporal Oral Temporal Pulse Rate (60-100) 77 74 83 Pulse Location Monitor Monitor Monitor Blood Pressure (90/60-120/80) 156/89 H 149/84 H 152/82 H Blood Pressure Mean (mm Hg) 111 105 105 Source Monitor Monitor Monitor Position Semi-Fowlers Sitting Blood Pressure Location Left Arm Right Arm History Since Last Visit- (Skip if this is Patient's initial visit) Have you changed medications since your No No No last visit? Any new allergies or adverse reactions No No No Had a fall/change in ADL's that may No No No increase risk of falls Signs or symptoms of abuse and/or No No No neglect since last visit Have you been in the hospital since your No No No last visit? Has dressing in place as prescribed Yes Yes Yes Has compression in place as prescribed No Yes N/A Has offloadiing in place as prescribed N/A N/A N/A Experienced any changes in pain level or No No management Left Footwear Regular Shoe Regular Shoe Regular Shoe Right Footwear Regular Shoe Regular Shoe Regular Shoe Pain Scale: 0-10 Numeric Is Patient Pain Free? Yes Yes WC - Nurse 1 - General Ulcer Measurement Start: 06/30/21 09:04 Freq: Status: Active Protocol: Activity Type Activity Date Activity User E-Sign Co-Sign Detail Recorded Client Recorded Date Recorded By Document 06/30/21 09:04 AK [id number] 06/30/21 09:17 AK Document 07/07/21 09:07 KR [id number] 07/07/21 09:13 KR Document 07/14/21 09:03 AK [id number] 07/14/21 09:11 AK 06/30/21 07/07/21 07/14/21 09:04 09:07 09:03 Wound Center Nurse 1 #12 Medial Superior LLE -Combined with other wound No -Current Size (cm) - Length 1.7 0.1 2 -Current Size (cm) - Width 2 0.1 2.5 -Current Size (cm) - Depth 0.1 0.1 0.1 -Total Square Cm 3.4 0.01 5.0 -Photo Taken No -Tunneling No -Undermining/Tunneling No -Circular Undermining No -Change in Wound Grade/Stage No -Exudate Amt Large None Present Medium -Exudate Type Serosanguineous Serosanguineous -Wound Margin Distinct, Distinct, Outline Outline Attached Attached -Granulation Amt None Present (0 Medium (34-66%) %) -Granulation Quality Red -Slough/Fibrin Yes -Necrosis Amt Large (67-100%) None Present (0 Medium (34-66%) %) -Necrotic Tissue Type Adherent Slough Adherent Slough -Structure Exposed N/A -Texture (Ara-wound Skin Appearance) No Abnormality, No Abnormality, Assessed, Assessed Assessed Scarring -Moisture (Ara-wound Skin Appearance) No Abnormality, No Abnormality, No Abnormality, Assessed Assessed Assessed -Color (Ara-wound Skin Appearance) No Abnormality, No Abnormality, No Abnormality, Assessed Assessed Assessed -Temperature (Ara-wound Skin No Abnormality No Abnormality No Abnormality Appearance) (Pt Warm) (Pt Warm) (Pt Warm) -Tenderness on Palpation (Ara-wound No No No Skin Appearance) -Ulcer Cleansing Rinsed/ soap and water Irrigated with Saline -Anesthetic Used 4% Lidocaine 4% Lidocaine Solution Solution #11 Medial Inferior LLE -Combined with other wound No -Current Size (cm) - Length 3.5 0.1 4.6 -Current Size (cm) - Width 4 0.1 5.5 -Current Size (cm) - Depth 0.1 0.1 0.1 -Total Square Cm 14.0 0.01 25.30 -Photo Taken No -Tunneling No -Undermining/Tunneling No -Circular Undermining No -Change in Wound Grade/Stage No -Exudate Amt Large Medium -Exudate Type Serosanguineous Serosanguineous -Wound Margin Distinct, Distinct, Distinct, Outline Outline Outline Attached Attached Attached -Granulation Amt Small (1-33%) None Present (0 Medium (34-66%) %) -Granulation Quality Bertrand Red -Slough/Fibrin No No -Necrosis Amt Large (67-100%) None Present (0 Medium (34-66%) %) -Necrotic Tissue Type Adherent Slough Adherent Slough -Structure Exposed N/A -Texture (Ara-wound Skin Appearance) No Abnormality, No Abnormality, Assessed, Assessed Assessed Scarring -Moisture (Ara-wound Skin Appearance) No Abnormality, No Abnormality, Assessed,Dry/ Assessed Assessed Scaly -Color (Ara-wound Skin Appearance) No Abnormality, No Abnormality, No Abnormality, Assessed Assessed Assessed -Temperature (Ara-wound Skin No Abnormality No Abnormality No Abnormality Appearance) (Pt Warm) (Pt Warm) (Pt Warm) -Tenderness on Palpation (Ara-wound No No Skin Appearance) -Ulcer Cleansing Rinsed/ soap and water Irrigated with Saline -Foul Odor after Cleansing No -Anesthetic Used 4% Lidocaine 4% Lidocaine Solution Solution #10 Left Medial Ankle -Current Size (cm) - Length 4.3 4.2 -Current Size (cm) - Width 3.6 4 -Current Size (cm) - Depth 0.1 0.3 -Total Square Cm 15.48 16.8 -Exudate Amt Medium Medium -Exudate Type Serous Serosanguineous -Wound Margin Distinct, Distinct, Outline Outline Attached Attached -Granulation Amt Medium (34-66%) Medium (34-66%) -Granulation Quality Red Red -Necrosis Amt Medium (34-66%) Medium (34-66%) -Necrotic Tissue Type Adherent Slough -Texture (Ara-wound Skin Appearance) Assessed, Assessed, Scarring Scarring -Moisture (Ara-wound Skin Appearance) No Abnormality, Assessed, Assessed Maceration -Color (Ara-wound Skin Appearance) No Abnormality, No Abnormality Assessed -Temperature (Ara-wound Skin No Abnormality No Abnormality Appearance) (Pt Warm) (Pt Warm) -Tenderness on Palpation (Ara-wound No No Skin Appearance) -Ulcer Cleansing soap and water Rinsed/ Irrigated with Saline -Foul Odor after Cleansing No No -Anesthetic Used 4% Lidocaine 4% Lidocaine Solution Solution Left Calf (cm) 35 Left Ankle (cm) 23 WC - Nurse 2 - General Ulcer CM Notes Start: 06/30/21 09:04 Freq: Status: Active Protocol: Activity Type Activity Date Activity User E-Sign Co-Sign Detail Recorded Client Recorded Date Recorded By Document 06/30/21 09:27 MT [id number] 06/30/21 09:43 MT Edit Result 06/30/21 09:27 MT (1) [id number] 07/01/21 13:34 PL Document 07/07/21 09:25 MT [id number] 07/07/21 09:43 MT Edit Result 07/07/21 09:25 MT (2) [id number] 07/07/21 16:20 MT Document 07/14/21 09:29 MW [id number] 07/14/21 09:44 MW (1) #12 Medial Superior LLE - Apply Skin Sub - 1st 25 sq cm - Legs => 1 (2) #12 Medial Superior LLE - Apply Skin Sub - 1st 25 sq cm - Legs => 1 06/30/21 07/07/21 07/14/21 09:27 09:25 09:29 Wound Center Nurse 2 #12 Medial Superior LLE -Time 09: 09:28 09:29 -Correct Patient Yes Yes Yes -Correct Side, Site, Position Yes Yes Yes -Correct Procedure Yes Yes Yes -Procedure Performed Yes Yes Yes -Type of Procedure Debridement Debridement Debridement -Clinical Debridement Subcutaneous Subcutaneous Subcutaneous -Tissue Removed Subcutaneous Subcutaneous Subcutaneous -Post Debridement (cm) - Length 1.8 1.9 1.9 -Post Debridement (cm) - Width 1.9 1.8 2.0 -Post Debridement (cm) - Depth 0.1 0.1 0.1 -Total Square (Post) (cm) 3.42 3.42 3.80 -Area of Debridement (cm) - Length 1.8 1.9 1.9 -Area of Debridement (cm) - Width 1.9 1.8 2.0 -Total Square (Area) (cm) 3.42 3.42 3.80 -Tunneling No No No -Undermining/Tunneling No No No -Circular Undermining No No -Wound/Ulcer Outcome Not Healed Not Healed Not Healed -Ulcer Cleansing Rinsed/ Wound Cleanser Rinsed/ Irrigated with Irrigated with Saline Saline -Foul Odor after Cleansing No No -Bioengineered Tissue Yes Yes Yes -Type of Bioengineered Tissue Theraskin Theraskin Theraskin -Expiration Date 08/18/24 12/22/24 12/22/24 -Product Lot Number [id number] -Percent Used 100 100 100 -Lot number of Saline Used [id number] -Bleeding Controlled with Pressure Pressure Pressure -Offloading No No No -Treatment Response Procedure Procedure Procedure Tolerated Well Tolerated Well Tolerated Well -Debridement - Subq, 1st 20sq cm No No No -Apply Skin Sub - 1st 25 sq cm - Legs 1 1 1 -Theraskin (per sq cm) 13 6 6 #11 Medial Inferior LLE -Time 09:34 09:41 09:30 -Correct Patient Yes Yes Yes -Correct Side, Site, Position Yes Yes Yes -Correct Procedure Yes Yes Yes -Procedure Performed Yes No Yes -Type of Procedure Debridement Debridement -Clinical Debridement Subcutaneous Subcutaneous -Tissue Removed Subcutaneous Subcutaneous -Post Debridement (cm) - Length 3.3 4.0 -Post Debridement (cm) - Width 3.5 4.5 -Post Debridement (cm) - Depth 0.1 0.2 -Total Square (Post) (cm) 11.55 18.00 -Area of Debridement (cm) - Length 3.3 4.0 -Area of Debridement (cm) - Width 3.5 4.5 -Total Square (Area) (cm) 11.55 18.00 -Tunneling No No No -Undermining/Tunneling No No No -Circular Undermining No No -Wound/Ulcer Outcome Not Healed Not Healed Not Healed -Ulcer Cleansing Rinsed/ Rinsed/ Irrigated with Irrigated with Saline Saline -Foul Odor after Cleansing No No -Bioengineered Tissue No No -Bleeding Controlled with Pressure Pressure -Other theraskin intact -Offloading No No -Treatment Response Procedure Tolerated Well -Debridement - Subq, 1st 20sq cm Yes Yes -Debridement, SubQ, ea addt'l 20sq cm 1 or part thereof #10 Left Medial Ankle -Time 09:36 09:42 09:30 -Correct Patient Yes Yes Yes -Correct Side, Site, Position Yes Yes Yes -Correct Procedure Yes Yes Yes -Procedure Performed No Yes Yes -Type of Procedure Debridement Debridement -Clinical Debridement Subcutaneous Subcutaneous -Tissue Removed Subcutaneous Subcutaneous -Post Debridement (cm) - Length 3.6 4.0 -Post Debridement (cm) - Width 4.0 4.0 -Post Debridement (cm) - Depth 0.2 0.3 -Total Square (Post) (cm) 14.40 16.00 -Area of Debridement (cm) - Length 3.6 4.0 -Area of Debridement (cm) - Width 4.0 4.0 -Total Square (Area) (cm) 14.40 16.00 -Tunneling No No -Undermining/Tunneling No No -Circular Undermining No No -Wound/Ulcer Outcome Not Healed Not Healed Not Healed -Ulcer Cleansing Rinsed/ Rinsed/ Irrigated with Irrigated with Saline Saline -Foul Odor after Cleansing No No -Bioengineered Tissue No No -Bleeding Controlled with Pressure Pressure -Other Theraskin adaptic touch intact -Offloading No No -Treatment Response Procedure Procedure Tolerated Well Tolerated Well -Debridement - Subq, 1st 20sq cm Yes No Pain Scale: 0-10 Numeric Is Patient Pain Free? Yes WC - Nurse 3 - General Ulcer D/C NN Start: 06/30/21 09:04 Freq: Status: Active Protocol: Activity Type Activity Date Activity User E-Sign Co-Sign Detail Recorded Client Recorded Date Recorded By Document 07/07/21 09:47 ML [id number] 07/07/21 09:48 ML 07/07/21 09:47 Wound Care Nurse 3 #10 Left Medial Ankle -Primary Dressing Applied Promogran -Primary Dressing Covered/Secured with Dry Gauze, Secured with Tape -Promogran 2 Pain Scale: 0-10 Numeric Is Patient Pain Free? Yes WC - Visit Discharge Discharge Condition Stable Ambulatory Status Ambulatory Transportation Private Auto Additional Wound Wound debrided: Left lower extremity inferior Type of Debridement: Excisional debridement Anesthesia Used: 4% Lidocaine Solution Depth: Down to and including healthy tissue and in the subcutaneous layer Percentage of wound debrided: 100 Instrument Used: 5mm curette Tissue Removed: Slough and devitalized tissue Severity: Fat Layer Exposed Amount of bleeding with debridement: Mild Bleeding Controlled with: Pressure Patient tolerated procedure: Patient tolerated procedure well Additional Wound Wound debrided: Left lower extremity superior Type of Debridement: Excisional debridement Anesthesia Used: 4% Lidocaine Solution Depth: Down to and including healthy tissue and in the subcutaneous layer Percentage of wound debrided: 100 Instrument Used: 5mm curette Tissue Removed: Slough and devitalized tissue Severity: Fat Layer Exposed Amount of bleeding with debridement: Mild Bleeding Controlled with: Pressure Patient tolerated procedure: Patient tolerated procedure well Assessment/Plan Assessment/Plan (1) Ulcer of left lower extremity with fat layer exposed: CODE(S): L97.922 - Non-pressure chronic ulcer of unspecified part of left lower leg with fat layer exposed (2) PVD (peripheral vascular disease): CODE(S): I73.9 - Peripheral vascular disease, unspecified (3) Chronic venous insufficiency: CODE(S): I87.2 - Venous insufficiency (chronic) (peripheral) (4) Delayed wound healing: CODE(S): T14.8XXD - Other injury of unspecified body region, subsequent encounter PLAN: Debridement done as documented above, procedure was well-tolerated. 3rd application of Thera Skin to left lower extremity superior ulcer done today using 100% of product. Secured with Dermabond and covered with Adaptic touch. Will leave in place for 1 week. Aquacel silver to other ulcers, increase drainage noted with Promogran. Continue care max care, change daily to twice daily depending on drainage. Continue use of compression stockings, leg elevation and exercise. Increased protein intake, protein supplements, zinc and vitamin C also recommended. His questions were answered and was advised to call with any further questions or concerns. Follow-up in a week. This note was generated with [employer] software. It may contain incorrect words, spelling, and punctuation that were not noted in checking the note before signing.
[2021-07-18 13:23] VITALS: BP 158/92; PULSE 112; TEMP 35.8; BMI 31.4
--- NOTE | 2021-07-18 13:35 | WC ---
Patient came in with possible infection in left leg. We removed all dressings and cleaned with soap and water. His leg has a deep purple rash up to right below his knee. There is swelling from top wound up to the knee and it was warm to the touch. He is feeling feverish and was pale and sweating. Mikhail looked at it as well. We sent him to ER. Caroline is texting [facility] and notifying [place]. Temp and BP was normal and is charted. Theraskin was removed
[2021-07-21 09:03] VITALS: BP 137/80; PULSE 109; TEMP 36.9; BMI 31.4
--- NOTE | 2021-07-21 09:33 | PN.PCM_ITS ---
History of Present Illness Date of Service: 07/21/21 Chief Complaint: ulcers to the left lower leg History of Wound: This is a 54-year-old male presents to wound healing center with a long-standing history of chronic venous insufficiency, chronic venous hypertension, lower extremity edema, lower extremity pain, and chronic left lower extremity ulcer. The patient has previously undergone endovenous laser ablation of the left and right great saphenous vein, the small saphenous vein, the left accessory saphenous vein, and an incompetent left calf crushed stone grader vein located 15 cm proximal to the left medial malleolus. He is currently wearing graduated compression stockings which are documented to be 20-30 mmHg compression and these are thigh high. He reports great compliance with use. He is also had previous arterial work-up with no intervention recommended by letter, his vascular surgeon. He denies taking nutritional supplementation. He saw dermatology and had a biopsy of the ulcer site. He also was previously treated by infectious disease for various contaminations and infections. He is not antibiotics at this time nor does he have any redness or odor coming from the wound. He denies fever, chill, nausea, vomiting, loss of appetite. Subjective Subjective Status post recent hospital admission. Had presented to the wound center with redness of his left lower extremity for which he was referred to the emergency r oom. Admitted and managed for left lower extremity cellulitis. Was was initially on IV antibiotics but discharged on Keflex. Pain and redness have improved. Denies chills, fever or otherwise feeling of unwell. Objective Data Objective Data Vital Signs: Vital Signs Temp Pulse Resp BP Pulse Ox 98.4 F 109 H 18 137/80 H 99 07/21/21 09:03 07/21/21 09:03 06/29/21 00:27 07/21/21 09:03 06/29/21 00:27 Body Mass Index (BMI) 31.4 Charges/Coding Procedures Integumentary 111xxx-113xx: [id number] [place] subq tissue 20 sq cm/< Add On Codes: [id number] Lakeisha subq tissue add-on Physical Exam Const alert, oriented x3 and no apparent distress General Appearance: cooperative and comfortable Orientation / Consciousness: awake HEENT normocephalic Head and Scalp: normal to inspection, normocephalic and atraumatic Face and Sinus: normal facial exam Eyes EOMs intact bilaterally Neck full ROM and supple General: normal visual inspection Resp normal respiratory effort Effort and Inspection: able to speak in complete sentences GI non-tender Extremity normal to inspection General Extremity: edema Skin Wounds: wounds noted Neuro oriented x3 and CN's II-XII intact bilaterally Psych mental status grossly normal Appearance: grossly normal Debridement Note Debridement Note Wound debrided: Left lower extremity (medial ankle) Type of Debridement: Excisional debridement Anesthesia Used: 4% Lidocaine Solution Depth: Down to and including healthy tissue Percentage of wound debrided: 100 Instrument Used: 5mm curette Tissue Removed: Slough and devitalized tissue Severity: Fat Layer Exposed Amount of bleeding with debridement: Mild Bleeding Controlled with: Pressure Patient tolerated procedure: Patient tolerated procedure well Post-Debridement Measurements and Additional Note: Post-Debridement Measurements/Treatment WC - Nurse 1 - General Ulcer Assessment Start: 06/30/21 09:04 Freq: Status: Active Protocol: SHANTA Activity Type Activity Date Activity User E-Sign Co-Sign Detail Recorded Client Recorded Date Recorded By Document 06/30/21 09:04 AK [id number] 06/30/21 09:17 AK Document 07/07/21 09:07 KR [id number] 07/07/21 09:13 KR Document 07/14/21 09:03 AK [id number] 07/14/21 09:11 AK Document 07/18/21 13:23 AK [id number] 07/18/21 13:35 AK Document 07/21/21 09:03 AK [id number] 07/21/21 09:11 AK 06/30/21 07/07/21 07/14/21 09:04 09:07 09:03 - Today's Visit Information Type of service Follow-up Visit Initial Visit Follow-up Visit (Physician/ADULT AND PEDIATRIC NEUROLOGIST (Physician/ADULT AND PEDIATRIC NEUROLOGIST ) ) Arrival Mode Ambulatory Ambulatory Ambulatory Patient Identification Verified (Name & Yes Yes Yes ) Patient Requires Transmission-Based No Precautions Height and Weight Body Mass Index (BMI) 31.4 31.4 31.4 BMI Classification Obese Obese Obese Vital Signs Temperature (97.8 F-99.1 F) 96.9 F L 97.1 F L 96.9 F L Temperature Source Temporal Oral Temporal Pulse Rate (60-100) 77 74 83 Pulse Location Monitor Monitor Monitor Blood Pressure (90/60-120/80) 156/89 H 149/84 H 152/82 H Blood Pressure Mean (mm Hg) 111 105 105 Source Monitor Monitor Monitor Position Semi-Fowlers Sitting Blood Pressure Location Left Arm Right Arm History Since Last Visit- (Skip if this is Patient's initial visit) Have you changed medications since your No No No last visit? Any new allergies or adverse reactions No No No Had a fall/change in ADL's that may No No No increase risk of falls Signs or symptoms of abuse and/or No No No neglect since last visit Have you been in the hospital since your No No No last visit? Has dressing in place as prescribed Yes Yes Yes Has compression in place as prescribed No Yes N/A Has offloadiing in place as prescribed N/A N/A N/A Experienced any changes in pain level or No No management Left Footwear Regular Shoe Regular Shoe Regular Shoe Right Footwear Regular Shoe Regular Shoe Regular Shoe Pain Scale: 0-10 Numeric Is Patient Pain Free? Yes Yes 07/18/21 07/21/21 13:23 09:03 WC - Today's Visit Information Type of service Nurse-only Follow-up Visit Visit (Physician/ADULT AND PEDIATRIC NEUROLOGIST ) Arrival Mode Ambulatory Ambulatory Patient Identification Verified (Name & Yes Yes ) Patient Requires Transmission-Based Precautions Height and Weight Body Mass Index (BMI) 31.4 31.4 BMI Classification Obese Obese Vital Signs Temperature (97.8 F-99.1 F) 96.4 F L 98.4 F Temperature Source Temporal Temporal Pulse Rate (60-100) 112 H 109 H Pulse Location Monitor Monitor Blood Pressure (90/60-120/80) 158/92 H 137/80 H Blood Pressure Mean (mm Hg) 114 99 Source Monitor Monitor Position Semi-Fowlers Blood Pressure Location Right Arm History Since Last Visit- (Skip if this is Patient's initial visit) Have you changed medications since your No No last visit? Any new allergies or adverse reactions No No Had a fall/change in ADL's that may No No increase risk of falls Signs or symptoms of abuse and/or No No neglect since last visit Have you been in the hospital since your No No last visit? Has dressing in place as prescribed Yes Yes Has compression in place as prescribed No N/A Has offloadiing in place as prescribed N/A N/A Experienced any changes in pain level or No No management Left Footwear Regular Shoe Regular Shoe Right Footwear Regular Shoe Regular Shoe Pain Scale: 0-10 Numeric Is Patient Pain Free? Yes WC - Nurse 1 - General Ulcer Measurement Start: 06/30/21 09:04 Freq: Status: Active Protocol: Activity Type Activity Date Activity User E-Sign Co-Sign Detail Recorded Client Recorded Date Recorded By Document 06/30/21 09:04 AK [id number] 06/30/21 09:17 AK Document 07/07/21 09:07 KR [id number] 07/07/21 09:13 KR Document 07/14/21 09:03 AK [id number] 07/14/21 09:11 AK Document 07/21/21 09:03 AK [id number] 07/21/21 09:11 AK 06/30/21 07/07/21 07/14/21 09:04 09:07 09:03 Wound Center Nurse 1 #12 Medial Superior LLE -Combined with other wound No -Current Size (cm) - Length 1.7 0.1 2 -Current Size (cm) - Width 2 0.1 2.5 -Current Size (cm) - Depth 0.1 0.1 0.1 -Total Square Cm 3.4 0.01 5.0 -Photo Taken No -Tunneling No -Undermining/Tunneling No -Circular Undermining No -Change in Wound Grade/Stage No -Exudate Amt Large None Present Medium -Exudate Type Serosanguineous Serosanguineous -Wound Margin Distinct, Distinct, Outline Outline Attached Attached -Granulation Amt None Present (0 Medium (34-66%) %) -Granulation Quality Red -Slough/Fibrin Yes -Necrosis Amt Large (67-100%) None Present (0 Medium (34-66%) %) -Necrotic Tissue Type Adherent Slough Adherent Slough -Structure Exposed N/A -Texture (Ara-wound Skin Appearance) No Abnormality, No Abnormality, Assessed, Assessed Assessed Scarring -Moisture (Ara-wound Skin Appearance) No Abnormality, No Abnormality, No Abnormality, Assessed Assessed Assessed -Color (Ara-wound Skin Appearance) No Abnormality, No Abnormality, No Abnormality, Assessed Assessed Assessed -Temperature (Ara-wound Skin No Abnormality No Abnormality No Abnormality Appearance) (Pt Warm) (Pt Warm) (Pt Warm) -Tenderness on Palpation (Ara-wound No No No Skin Appearance) -Ulcer Cleansing Rinsed/ soap and water Irrigated with Saline -Foul Odor after Cleansing -Anesthetic Used 4% Lidocaine 4% Lidocaine Solution Solution #11 Medial Inferior LLE -Combined with other wound No -Current Size (cm) - Length 3.5 0.1 4.6 -Current Size (cm) - Width 4 0.1 5.5 -Current Size (cm) - Depth 0.1 0.1 0.1 -Total Square Cm 14.0 0.01 25.30 -Photo Taken No -Tunneling No -Undermining/Tunneling No -Circular Undermining No -Change in Wound Grade/Stage No -Exudate Amt Large Medium -Exudate Type Serosanguineous Serosanguineous -Wound Margin Distinct, Distinct, Distinct, Outline Outline Outline Attached Attached Attached -Granulation Amt Small (1-33%) None Present (0 Medium (34-66%) %) -Granulation Quality [place] Red -Slough/Fibrin No No -Necrosis Amt Large (67-100%) None Present (0 Medium (34-66%) %) -Necrotic Tissue Type Adherent Slough Adherent Slough -Structure Exposed N/A -Texture (Ara-wound Skin Appearance) No Abnormality, No Abnormality, Assessed, Assessed Assessed Scarring -Moisture (Ara-wound Skin Appearance) No Abnormality, No Abnormality, Assessed,Dry/ Assessed Assessed Scaly -Color (Ara-wound Skin Appearance) No Abnormality, No Abnormality, No Abnormality, Assessed Assessed Assessed -Temperature (Ara-wound Skin No Abnormality No Abnormality No Abnormality Appearance) (Pt Warm) (Pt Warm) (Pt Warm) -Tenderness on Palpation (Ara-wound No No Skin Appearance) -Ulcer Cleansing Rinsed/ soap and water Irrigated with Saline -Foul Odor after Cleansing No -Anesthetic Used 4% Lidocaine 4% Lidocaine Solution Solution #10 Left Medial Ankle -Current Size (cm) - Length 4.3 4.2 -Current Size (cm) - Width 3.6 4 -Current Size (cm) - Depth 0.1 0.3 -Total Square Cm 15.48 16.8 -Exudate Amt Medium Medium -Exudate Type Serous Serosanguineous -Wound Margin Distinct, Distinct, Outline Outline Attached Attached -Granulation Amt Medium (34-66%) Medium (34-66%) -Granulation Quality Red Red -Necrosis Amt Medium (34-66%) Medium (34-66%) -Necrotic Tissue Type Adherent Slough -Texture (Ara-wound Skin Appearance) Assessed, Assessed, Scarring Scarring -Moisture (Raa-wound Skin Appearance) No Abnormality, Assessed, Assessed Maceration -Color (Ara-wound Skin Appearance) No Abnormality, No Abnormality Assessed -Temperature (Ara-wound Skin No Abnormality No Abnormality Appearance) (Pt Warm) (Pt Warm) -Tenderness on Palpation (Ara-wound No No Skin Appearance) -Ulcer Cleansing soap and water Rinsed/ Irrigated with Saline -Foul Odor after Cleansing No No -Anesthetic Used 4% Lidocaine 4% Lidocaine Solution Solution Left Calf (cm) 35 Left Ankle (cm) 07/21/21 09:03 Wound Center Nurse 1 #12 Medial Superior LLE -Combined with other wound -Current Size (cm) - Length 2 -Current Size (cm) - Width 2.4 -Current Size (cm) - Depth 0.1 -Total Square Cm 4.8 -Photo Taken -Tunneling -Undermining/Tunneling -Circular Undermining -Change in Wound Grade/Stage -Exudate Amt Medium -Exudate Type Serosanguineous -Wound Margin Distinct, Outline Attached -Granulation Amt Large (67-100%) -Granulation Quality Red -Slough/Fibrin -Necrosis Amt Medium (34-66%) -Necrotic Tissue Type -Structure Exposed -Texture (Ara-wound Skin Appearance) Assessed, Scarring -Moisture (Ara-wound Skin Appearance) No Abnormality, Assessed -Color (Ara-wound Skin Appearance) No Abnormality, Assessed -Temperature (Ara-wound Skin No Abnormality Appearance) (Pt Warm) -Tenderness on Palpation (Ara-wound No Skin Appearance) -Ulcer Cleansing Rinsed/ Irrigated with Saline -Foul Odor after Cleansing No -Anesthetic Used 4% Lidocaine Solution,5% Lidocaine Gel #11 Medial Inferior LLE -Combined with other wound -Current Size (cm) - Length 2.4 -Current Size (cm) - Width 4.1 -Current Size (cm) - Depth 0.1 -Total Square Cm 9.84 -Photo Taken -Tunneling -Undermining/Tunneling -Circular Undermining -Change in Wound Grade/Stage -Exudate Amt Medium -Exudate Type Serosanguineous -Wound Margin Distinct, Outline Attached -Granulation Amt Medium (34-66%) -Granulation Quality Red -Slough/Fibrin -Necrosis Amt -Necrotic Tissue Type -Structure Exposed -Texture (Ara-wound Skin Appearance) Assessed, Scarring -Moisture (Ara-wound Skin Appearance) No Abnormality, Assessed -Color (Ara-wound Skin Appearance) No Abnormality, Assessed -Temperature (Ara-wound Skin No Abnormality Appearance) (Pt Warm) -Tenderness on Palpation (Ara-wound No Skin Appearance) -Ulcer Cleansing Rinsed/ Irrigated with Saline -Foul Odor after Cleansing No -Anesthetic Used 4% Lidocaine Solution,5% Lidocaine Gel #10 Left Medial Ankle -Current Size (cm) - Length 4 -Current Size (cm) - Width 3.5 -Current Size (cm) - Depth 0.1 -Total Square Cm 14.0 -Exudate Amt Medium -Exudate Type Serosanguineous -Wound Margin Distinct, Outline Attached -Granulation Amt Medium (34-66%) -Granulation Quality Red -Necrosis Amt -Necrotic Tissue Type -Texture (Ara-wound Skin Appearance) Assessed, Scarring -Moisture (Ara-wound Skin Appearance) No Abnormality, Assessed -Color (Ara-wound Skin Appearance) No Abnormality, Assessed -Temperature (Ara-wound Skin No Abnormality Appearance) (Pt Warm) -Tenderness on Palpation (Ara-wound No Skin Appearance) -Ulcer Cleansing Rinsed/ Irrigated with Saline -Foul Odor after Cleansing No -Anesthetic Used 4% Lidocaine Solution,5% Lidocaine Gel Left Calf (cm) Left Ankle (cm) WC - Nurse 2 - General Ulcer CM Notes Start: 06/30/21 09:04 Freq: Status: Active Protocol: Activity Type Activity Date Activity User E-Sign Co-Sign Detail Recorded Client Recorded Date Recorded By Document 06/30/21 09:27 MT [id number] 06/30/21 09:43 MT Edit Result 06/30/21 09:27 MT (1) [id number] 07/01/21 13:34 PL Document 07/07/21 09:25 MT [id number] 07/07/21 09:43 MT Edit Result 07/07/21 09:25 MT (2) [id number] 07/07/21 16:20 MT Document 07/14/21 09:29 MW [id number] 07/14/21 09:44 MW Document 07/21/21 09:16 MW [id number] 07/21/21 09:26 MW (1) #12 Medial Superior LLE - Apply Skin Sub - 1st 25 sq cm - Legs => 1 (2) #12 Medial Superior LLE - Apply Skin Sub - 1st 25 sq cm - Legs => 1 06/30/21 07/07/21 07/14/21 09:27 09:25 09:29 Wound Center Nurse 2 #12 Medial Superior LLE -Time 09: 09:28 09:29 -Correct Patient Yes Yes Yes -Correct Side, Site, Position Yes Yes Yes -Correct Procedure Yes Yes Yes -Procedure Performed Yes Yes Yes -Type of Procedure Debridement Debridement Debridement -Clinical Debridement Subcutaneous Subcutaneous Subcutaneous -Tissue Removed Subcutaneous Subcutaneous Subcutaneous -Post Debridement (cm) - Length 1.8 1.9 1.9 -Post Debridement (cm) - Width 1.9 1.8 2.0 -Post Debridement (cm) - Depth 0.1 0.1 0.1 -Total Square (Post) (cm) 3.42 3.42 3.80 -Area of Debridement (cm) - Length 1.8 1.9 1.9 -Area of Debridement (cm) - Width 1.9 1.8 2.0 -Total Square (Area) (cm) 3.42 3.42 3.80 -Tunneling No No No -Undermining/Tunneling No No No -Circular Undermining No No -Wound/Ulcer Outcome Not Healed Not Healed Not Healed -Ulcer Cleansing Rinsed/ Wound Cleanser Rinsed/ Irrigated with Irrigated with Saline Saline -Foul Odor after Cleansing No No -Bioengineered Tissue Yes Yes Yes -Type of Bioengineered Tissue Theraskin Theraskin Theraskin -Expiration Date 08/18/24 12/22/24 12/22/24 -Product Lot Number [id number] -Percent Used 100 100 100 -Lot number of Saline Used [id number] -Bleeding Controlled with Pressure Pressure Pressure -Offloading No No No -Treatment Response Procedure Procedure Procedure Tolerated Well Tolerated Well Tolerated Well -Debridement - Subq, 1st 20sq cm No No No -Debridement, SubQ, ea addt'l 20sq cm or part thereof -Apply Skin Sub - 1st 25 sq cm - Legs 1 1 1 -Theraskin (per sq cm) 13 6 6 #11 Medial Inferior LLE -Time 09:34 09:41 09:30 -Correct Patient Yes Yes Yes -Correct Side, Site, Position Yes Yes Yes -Correct Procedure Yes Yes Yes -Procedure Performed Yes No Yes -Type of Procedure Debridement Debridement -Clinical Debridement Subcutaneous Subcutaneous -Tissue Removed Subcutaneous Subcutaneous -Post Debridement (cm) - Length 3.3 4.0 -Post Debridement (cm) - Width 3.5 4.5 -Post Debridement (cm) - Depth 0.1 0.2 -Total Square (Post) (cm) 11.55 18.00 -Area of Debridement (cm) - Length 3.3 4.0 -Area of Debridement (cm) - Width 3.5 4.5 -Total Square (Area) (cm) 11.55 18.00 -Tunneling No No No -Undermining/Tunneling No No No -Circular Undermining No No -Wound/Ulcer Outcome Not Healed Not Healed Not Healed -Ulcer Cleansing Rinsed/ Rinsed/ Irrigated with Irrigated with Saline Saline -Foul Odor after Cleansing No No -Bioengineered Tissue No No -Bleeding Controlled with Pressure Pressure -Other theraskin intact -Offloading No No -Treatment Response Procedure Tolerated Well -Debridement - Subq, 1st 20sq cm Yes Yes -Debridement, SubQ, ea addt'l 20sq cm 1 or part thereof #10 Left Medial Ankle -Time 09:36 09:42 09:30 -Correct Patient Yes Yes Yes -Correct Side, Site, Position Yes Yes Yes -Correct Procedure Yes Yes Yes -Procedure Performed No Yes Yes -Type of Procedure Debridement Debridement -Clinical Debridement Subcutaneous Subcutaneous -Tissue Removed Subcutaneous Subcutaneous -Post Debridement (cm) - Length 3.6 4.0 -Post Debridement (cm) - Width 4.0 4.0 -Post Debridement (cm) - Depth 0.2 0.3 -Total Square (Post) (cm) 14.40 16.00 -Area of Debridement (cm) - Length 3.6 4.0 -Area of Debridement (cm) - Width 4.0 4.0 -Total Square (Area) (cm) 14.40 16.00 -Tunneling No No -Undermining/Tunneling No No -Circular Undermining No No -Wound/Ulcer Outcome Not Healed Not Healed Not Healed -Ulcer Cleansing Rinsed/ Rinsed/ Irrigated with Irrigated with Saline Saline -Foul Odor after Cleansing No No -Bioengineered Tissue No No -Bleeding Controlled with Pressure Pressure -Other Theraskin adaptic touch intact -Offloading No No -Treatment Response Procedure Procedure Tolerated Well Tolerated Well -Debridement - Subq, 1st 20sq cm Yes No Pain Scale: 0-10 Numeric Is Patient Pain Free? Yes 07/21/21 09:16 Wound Center Nurse 2 #12 Medial Superior LLE -Time 09:17 -Correct Patient Yes -Correct Side, Site, Position Yes -Correct Procedure Yes -Procedure Performed Yes -Type of Procedure Debridement -Clinical Debridement Subcutaneous -Tissue Removed Subcutaneous -Post Debridement (cm) - Length 1.9 -Post Debridement (cm) - Width 2.0 -Post Debridement (cm) - Depth 0.1 -Total Square (Post) (cm) 3.80 -Area of Debridement (cm) - Length 1.9 -Area of Debridement (cm) - Width 2.0 -Total Square (Area) (cm) 3.80 -Tunneling No -Undermining/Tunneling No -Circular Undermining No -Wound/Ulcer Outcome Not Healed -Ulcer Cleansing Rinsed/ Irrigated with Saline -Foul Odor after Cleansing No -Bioengineered Tissue No -Type of Bioengineered Tissue -Expiration Date -Product Lot Number -Percent Used -Lot number of Saline Used -Bleeding Controlled with Pressure -Offloading No -Treatment Response Procedure Tolerated Well -Debridement - Subq, 1st 20sq cm Yes -Debridement, SubQ, ea addt'l 20sq cm 1 or part thereof -Apply Skin Sub - 1st 25 sq cm - Legs -Theraskin (per sq cm) #11 Medial Inferior LLE -Time 09:17 -Correct Patient Yes -Correct Side, Site, Position Yes -Correct Procedure Yes -Procedure Performed Yes -Type of Procedure Debridement -Clinical Debridement Subcutaneous -Tissue Removed Subcutaneous -Post Debridement (cm) - Length 3.5 -Post Debridement (cm) - Width 3.5 -Post Debridement (cm) - Depth 0.1 -Total Square (Post) (cm) 12.25 -Area of Debridement (cm) - Length 3.5 -Area of Debridement (cm) - Width 3.5 -Total Square (Area) (cm) 12.25 -Tunneling No -Undermining/Tunneling No -Circular Undermining No -Wound/Ulcer Outcome Not Healed -Ulcer Cleansing Rinsed/ Irrigated with Saline -Foul Odor after Cleansing No -Bioengineered Tissue No -Bleeding Controlled with Pressure -Other -Offloading No -Treatment Response Procedure Tolerated Well -Debridement - Subq, 1st 20sq cm No -Debridement, SubQ, ea addt'l 20sq cm or part thereof #10 Left Medial Ankle -Time 09:17 -Correct Patient Yes -Correct Side, Site, Position Yes -Correct Procedure Yes -Procedure Performed Yes -Type of Procedure Debridement -Clinical Debridement Subcutaneous -Tissue Removed Subcutaneous -Post Debridement (cm) - Length 3.9 -Post Debridement (cm) - Width 3.5 -Post Debridement (cm) - Depth 0.3 -Total Square (Post) (cm) 13.65 -Area of Debridement (cm) - Length 3.9 -Area of Debridement (cm) - Width 3.5 -Total Square (Area) (cm) 13.65 -Tunneling No -Undermining/Tunneling No -Circular Undermining No -Wound/Ulcer Outcome Not Healed -Ulcer Cleansing Rinsed/ Irrigated with Saline -Foul Odor after Cleansing No -Bioengineered Tissue No -Bleeding Controlled with Pressure -Other -Offloading No -Treatment Response Procedure Tolerated Well -Debridement - Subq, 1st 20sq cm No Pain Scale: 0-10 Numeric Is Patient Pain Free? Yes WC - Nurse 3 - General Ulcer D/C NN Start: 06/30/21 09:04 Freq: Status: Active Protocol: Activity Type Activity Date Activity User E-Sign Co-Sign Detail Recorded Client Recorded Date Recorded By Document 07/07/21 09:47 ML [id number] 07/07/21 09:48 ML Document 07/18/21 13:23 AK [id number] 07/18/21 13:35 AK 07/07/21 07/18/21 09:47 13:23 Wound Care Nurse 3 #12 Medial Superior LLE -Ulcer Cleansing Rinsed/ Irrigated with Saline -Foul Odor after Cleansing No -Negative Pressure Wound Therapy N/A -Primary Dressing Covered/Secured with Dry Gauze & Roll Gauze, Secured with Tape #11 Medial Inferior LLE -Ulcer Cleansing Rinsed/ Irrigated with Saline -Foul Odor after Cleansing No -Negative Pressure Wound Therapy N/A -Primary Dressing Covered/Secured with Dry Gauze & Roll Gauze, Secured with Tape #10 Left Medial Ankle -Ulcer Cleansing Rinsed/ Irrigated with Saline -Primary Dressing Applied Promogran -Primary Dressing Covered/Secured with Dry Gauze, Dry Gauze & Secured with Roll Gauze, Tape Secured with Tape -Promogran 2 Vital Signs Temperature (97.8 F-99.1 F) 96.4 F L Temperature Source Temporal Pulse Rate (60-100) 112 H Pulse Location Monitor Blood Pressure (90/60-120/80) 158/92 H Blood Pressure Mean (mm Hg) 114 Source Monitor Pain Scale: 0-10 Numeric Is Patient Pain Free? Yes WC - Visit Discharge Discharge Condition Stable Stable Ambulatory Status Ambulatory Ambulatory Transportation Private Auto Private Auto Medication Reconcilliation completed & No provided to patient/care provider Clinical Summary of Care Provided Yes Additional Wound Wound debrided: Left lower extremity (inferior) Type of Debridement: Excisional debridement Anesthesia Used: 4% Lidocaine Solution Depth: Down to and including healthy tissue and in the subcutaneous layer Percentage of wound debrided: 100 Instrument Used: 5mm curette Tissue Removed: Slough and devitalized tissue Severity: Fat Layer Exposed Amount of bleeding with debridement: Mild Bleeding Controlled with: Pressure Patient tolerated procedure: Patient tolerated procedure well Additional Wound Wound debrided: Left lower extremity (superior) Type of Debridement: Excisional debridement Anesthesia Used: 4% Lidocaine Solution Depth: Down to and including healthy tissue and in the subcutaneous layer Percentage of wound debrided: 100 Instrument Used: 5mm curette Tissue Removed: Slough and devitalized tissue Severity: Fat Layer Exposed Amount of bleeding with debridement: Mild Bleeding Controlled with: Pressure Patient tolerated procedure: Patient tolerated procedure well Assessment/Plan Assessment/Plan (1) Ulcer of left lower extremity with fat layer exposed: CODE(S): L97.922 - Non-pressure chronic ulcer of unspecified part of left lower leg with fat layer exposed (2) PVD (peripheral vascular disease): CODE(S): I73.9 - Peripheral vascular disease, unspecified (3) Chronic venous insufficiency: CODE(S): I87.2 - Venous insufficiency (chronic) (peripheral) (4) Delayed wound healing: CODE(S): T14.8XXD - Other injury of unspecified body region, subsequent encounter PLAN: Debridement done as documented above, procedure was well-tolerated. Due to his recent hospital admission for cellulitis which was predominantly of his superior ulcer, will discontinue further use of skin substitute/TheraSkin. Complete antibiotics as prescribed. Continue Aquacel silver and care max care to all ulcers, change daily to twice daily depending on drainage. Continue use of compression stockings, leg elevation and exercise. Increased protein intake, protein supplements, zinc and vitamin C also recommended. His questions were answered and was advised to call with any further questions or concerns. Work excuse given until Sunday07/25/21. Follow-up in 2 weeks. This note was generated with [employer] software. It may contain incorrect words, spelling, and punctuation that were not noted in checking the note before signing.
== END 2021-07-28 23:59 ==
LOC: WC 09:00
PROVIDERS: Visit Provider Internal Medicine
DX: I73.9 Peripheral vascular disease, unspecified (principal); I87.2 Venous insufficiency (chronic) (peripheral); R60.0 Localized edema; L97.822 Non-pressure chronic ulcer of other part of left lower leg with fat layer exposed
CPT/HCPCS: 11042; 11045; 15271; Q4121

== ENCOUNTER 2021-08-18 09:00 | Outpatient (RCR) | payer BC, SELFPAY ==
[2021-07-29 00:22] VITALS: BP 137/80; PULSE 109; RESP 18; TEMP 36.9; O2SAT 99; BMI 31.4
[2021-08-04 09:08] VITALS: BP 152/82; PULSE 115; TEMP 36.1; BMI 31.4
--- NOTE | 2021-08-04 12:30 | PCM.WC.PN ---
History of Present Illness Date of Service: 08/04/21 Chief Complaint: ulcers to the left lower leg History of Wound: This is a 54-year-old male presents to wound healing center with a long-standing history of chronic venous insufficiency, chronic venous hypertension, lower extremity edema, lower extremity pain, and chronic left lower extremity ulcer. The patient has previously undergone endovenous laser ablation of the left and right great saphenous vein, the small saphenous vein, the left accessory saphenous vein, and an incompetent left calf curtain stitcher vein located 15 cm proximal to the left medial malleolus. He is currently wearing graduated compression stockings which are documented to be 20-30 mmHg compression and these are thigh high. He reports great compliance with use. He is also had previous arterial work-up with no intervention recommended by letter, his vascular surgeon. He denies taking nutritional supplementation. He saw dermatology and had a biopsy of the ulcer site. He also was previously treated by infectious disease for various contaminations and infections. He is not antibiotics at this time nor does he have any redness or odor coming from the wound. He denies fever, chill, nausea, vomiting, loss of appetite. Subjective Subjective No new concerns at this time. Ulcers stable. Objective Data Objective Data Vital Signs: Vital Signs Temp Pulse Resp BP Pulse Ox 97.0 F L 115 H 18 152/82 H 99 08/04/21 09:08 08/04/21 09:08 07/29/21 00:22 08/04/21 09:08 07/29/21 00:22 Body Mass Index (BMI) 31.4 Charges/Coding Procedures Integumentary 111xxx-113xx: 75183 Lakeisha subq tissue 20 sq cm/< Add On Codes: 66238 Lakeisha subq tissue add-on Physical Exam Const alert, oriented x3 and no apparent distress General Appearance: cooperative and comfortable Orientation / Consciousness: awake HEENT normocephalic Head and Scalp: normal to inspection, normocephalic and atraumatic Face and Sinus: normal facial exam Eyes EOMs intact bilaterally Neck full ROM and supple General: normal visual inspection Resp normal respiratory effort Effort and Inspection: able to speak in complete sentences GI non-tender Extremity normal to inspection General Extremity: edema Skin Wounds: wounds noted Neuro oriented x3 and CN's II-XII intact bilaterally Psych mental status grossly normal Appearance: grossly normal Debridement Note Debridement Note Wound debrided: Left Ankle ( medial ) Type of Debridement: Excisional debridement Anesthesia Used: 4% Lidocaine Solution Depth: Down to and including healthy tissue and in the subcutaneous layer Percentage of wound debrided: 100 Instrument Used: 5mm curette Tissue Removed: Slough and devitalized tissue Severity: Fat Layer Exposed Amount of bleeding with debridement: Mild Bleeding Controlled with: Pressure Patient tolerated procedure: Patient tolerated procedure well Post-Debridement Measurements and Additional Note: Post-Debridement Measurements/Treatment KIMBERLY - Nurse 1 - General Ulcer Assessment Start: 08/04/21 09:07 Freq: Status: Active Protocol: SHANTA Activity Type Activity Date Activity User E-Sign Co-Sign Detail Recorded Client Recorded Date Recorded By Document 08/04/21 09:08 REINA [id number] 08/04/21 09:10 REINA 08/04/21 09:08 KIMBERLY - Today's Visit Information Type of service Follow-up Visit (Physician/DIALYSIS SOCIAL WORKER ) Arrival Mode Ambulatory Patient Identification Verified (Name & Yes ) Height and Weight Body Mass Index (BMI) 31.4 BMI Classification Obese Vital Signs Temperature (97.8 F-99.1 F) 97.0 F L Temperature Source Oral Pulse Rate (60-100) 115 H Pulse Location Monitor Blood Pressure (90/60-120/80) 152/82 H Blood Pressure Mean (mm Hg) 105 Source Monitor Position Semi-Fowlers Blood Pressure Location Right Arm History Since Last Visit- (Skip if this is Patient's initial visit) Have you changed medications since your No last visit? Any new allergies or adverse reactions No Had a fall/change in ADL's that may No increase risk of falls Signs or symptoms of abuse and/or No neglect since last visit Have you been in the hospital since your No last visit? Has dressing in place as prescribed Yes Has compression in place as prescribed Yes Has offloadiing in place as prescribed N/A Experienced any changes in pain level or No management Left Footwear Regular Shoe Right Footwear Regular Shoe Pain Scale: 0-10 Numeric Is Patient Pain Free? Yes KIMBERLY - Nurse 1 - General Ulcer Measurement Start: 08/04/21 09:07 Freq: Status: Active Protocol: Activity Type Activity Date Activity User E-Sign Co-Sign Detail Recorded Client Recorded Date Recorded By Document 08/04/21 09:08 REINA [id number] 08/04/21 09:10 KR 08/04/21 09:08 Wound Center Nurse 1 #12 Medial Superior LLE -Current Size (cm) - Length 1.5 -Current Size (cm) - Width 1.5 -Current Size (cm) - Depth 0.1 -Total Square Cm 2.25 -Exudate Amt Medium -Exudate Type Serosanguineous -Wound Margin Distinct, Outline Attached -Granulation Amt Medium (34-66%) -Granulation Quality Red -Necrosis Amt Small (1-33%) -Necrotic Tissue Type Adherent Slough -Texture (Ara-wound Skin Appearance) Assessed, Scarring -Moisture (Ara-wound Skin Appearance) No Abnormality, Assessed -Color (Ara-wound Skin Appearance) No Abnormality, Assessed -Temperature (Ara-wound Skin No Abnormality Appearance) (Pt Warm) -Tenderness on Palpation (Ara-wound No Skin Appearance) -Ulcer Cleansing Rinsed/ Irrigated with Saline -Foul Odor after Cleansing No -Anesthetic Used 4% Lidocaine Solution #11 Medial Inferior LLE -Current Size (cm) - Length 4.1 -Current Size (cm) - Width 3.5 -Current Size (cm) - Depth 0.1 -Total Square Cm 14.35 -Exudate Amt Medium -Exudate Type Serosanguineous -Wound Margin Distinct, Outline Attached -Granulation Amt Medium (34-66%) -Granulation Quality Red -Necrosis Amt Small (1-33%) -Necrotic Tissue Type Adherent Slough -Texture (Ara-wound Skin Appearance) Assessed, Scarring -Moisture (Ara-wound Skin Appearance) No Abnormality, Assessed -Color (Ara-wound Skin Appearance) No Abnormality, Assessed -Temperature (Ara-wound Skin No Abnormality Appearance) (Pt Warm) -Tenderness on Palpation (Ara-wound No Skin Appearance) -Ulcer Cleansing Rinsed/ Irrigated with Saline -Foul Odor after Cleansing No -Anesthetic Used 4% Lidocaine Solution #10 Left Medial Ankle -Current Size (cm) - Length 2 -Current Size (cm) - Width 3.5 -Current Size (cm) - Depth 0.1 -Total Square Cm 7.0 -Exudate Amt Medium -Exudate Type Serosanguineous -Wound Margin Distinct, Outline Attached -Granulation Amt Medium (34-66%) -Granulation Quality Red -Necrosis Amt Medium (34-66%) -Necrotic Tissue Type Adherent Slough -Texture (Ara-wound Skin Appearance) Assessed, Scarring -Moisture (Ara-wound Skin Appearance) Assessed, Maceration -Color (Ara-wound Skin Appearance) No Abnormality, Assessed -Temperature (Ara-wound Skin No Abnormality Appearance) (Pt Warm) -Tenderness on Palpation (Ara-wound No Skin Appearance) -Ulcer Cleansing Rinsed/ Irrigated with Saline -Foul Odor after Cleansing No -Anesthetic Used 4% Lidocaine Solution WC - Nurse 2 - General Ulcer CM Notes Start: 08/04/21 09:07 Freq: Status: Active Protocol: Activity Type Activity Date Activity User E-Sign Co-Sign Detail Recorded Client Recorded Date Recorded By Document 08/04/21 09:15 MW [id number] 08/04/21 09:21 MW 08/04/21 09:15 Wound Center Nurse 2 #12 Medial Superior LLE -Time 09:16 -Correct Patient Yes -Correct Side, Site, Position Yes -Correct Procedure Yes -Procedure Performed Yes -Type of Procedure Debridement -Clinical Debridement Subcutaneous -Tissue Removed Subcutaneous -Post Debridement (cm) - Length 1.6 -Post Debridement (cm) - Width 1.5 -Post Debridement (cm) - Depth 0.1 -Total Square (Post) (cm) 2.40 -Area of Debridement (cm) - Length 1.6 -Area of Debridement (cm) - Width 1.5 -Total Square (Area) (cm) 2.40 -Tunneling No -Undermining/Tunneling No -Circular Undermining No -Wound/Ulcer Outcome Not Healed -Ulcer Cleansing Rinsed/ Irrigated with Saline -Foul Odor after Cleansing No -Bioengineered Tissue No -Bleeding Controlled with Pressure -Offloading No -Treatment Response Procedure Tolerated Well -Debridement - Subq, 1st 20sq cm Yes #11 Medial Inferior LLE -Time 09:17 -Correct Patient Yes -Correct Side, Site, Position Yes -Correct Procedure Yes -Type of Procedure Debridement -Clinical Debridement Subcutaneous -Tissue Removed Subcutaneous -Post Debridement (cm) - Length 3.5 -Post Debridement (cm) - Width 4.0 -Post Debridement (cm) - Depth 0.2 -Total Square (Post) (cm) 14.00 -Area of Debridement (cm) - Length 3.5 -Area of Debridement (cm) - Width 4.0 -Total Square (Area) (cm) 14.00 -Tunneling No -Undermining/Tunneling No -Circular Undermining No -Wound/Ulcer Outcome Not Healed -Ulcer Cleansing Rinsed/ Irrigated with Saline -Foul Odor after Cleansing No -Bioengineered Tissue No -Bleeding Controlled with Pressure -Offloading No -Treatment Response Procedure Tolerated Well -Debridement - Subq, 1st 20sq cm No #10 Left Medial Ankle -Time 09:17 -Correct Patient Yes -Correct Side, Site, Position Yes -Correct Procedure Yes -Procedure Performed Yes -Type of Procedure Debridement -Clinical Debridement Subcutaneous -Tissue Removed Subcutaneous -Post Debridement (cm) - Length 4.0 -Post Debridement (cm) - Width 3.5 -Post Debridement (cm) - Depth 0.2 -Total Square (Post) (cm) 14.00 -Area of Debridement (cm) - Length 4.0 -Area of Debridement (cm) - Width 3.5 -Total Square (Area) (cm) 14.00 -Tunneling No -Undermining/Tunneling No -Circular Undermining No -Wound/Ulcer Outcome Not Healed -Ulcer Cleansing Rinsed/ Irrigated with Saline -Foul Odor after Cleansing No -Bioengineered Tissue No -Bleeding Controlled with Pressure -Offloading No -Treatment Response Procedure Tolerated Well -Debridement - Subq, 1st 20sq cm No Pain Scale: 0-10 Numeric Is Patient Pain Free? Yes - Nurse 3 - General Ulcer D/C NN Start: 08/04/21 09:07 Freq: Status: Active Protocol: Activity Type Activity Date Activity User E-Sign Co-Sign Detail Recorded Client Recorded Date Recorded By Document 08/04/21 09:25 REINA [id number] 08/04/21 09:25 REINA 08/04/21 09:25 Wound Care Nurse 3 #12 Medial Superior LLE -Ulcer Cleansing Rinsed/ Irrigated with Saline -Primary Dressing Covered/Secured with Dry Gauze, Secured with Tape #11 Medial Inferior LLE -Primary Dressing Covered/Secured with Dry Gauze, Secured with Tape #10 Left Medial Ankle -Ulcer Cleansing Rinsed/ Irrigated with Saline -Primary Dressing Covered/Secured with Dry Gauze, Secured with Tape Pain Scale: 0-10 Numeric Is Patient Pain Free? Yes WC - Visit Discharge Discharge Condition Stable Ambulatory Status Ambulatory Transportation Private Auto Accompanied by self Additional Wound Wound debrided: Left lower Extremity ( Inferior ) Type of Debridement: Excisional debridement Anesthesia Used: 4% Lidocaine Solution Depth: Down to and including healthy tissue and in the subcutaneous layer Percentage of wound debrided: 100 Instrument Used: 5mm curette Tissue Removed: Slough and devitalized tissue Severity: Fat Layer Exposed Amount of bleeding with debridement: Mild Bleeding Controlled with: Pressure Patient tolerated procedure: Patient tolerated procedure well Additional Wound Wound debrided: Left Lower Extremity ( Superior ) Type of Debridement: Excisional debridement Anesthesia Used: 4% Lidocaine Solution Depth: Down to and including healthy tissue and in the subcutaneous layer Percentage of wound debrided: 100 Instrument Used: 5mm curette Tissue Removed: Slough and devitalized tissue Severity: Fat Layer Exposed Amount of bleeding with debridement: Mild Bleeding Controlled with: Pressure Patient tolerated procedure: Patient tolerated procedure well Assessment/Plan Assessment/Plan (1) Ulcer of left lower extremity with fat layer exposed: CODE(S): L97.922 - Non-pressure chronic ulcer of unspecified part of left lower leg with fat layer exposed (2) PVD (peripheral vascular disease): CODE(S): I73.9 - Peripheral vascular disease, unspecified (3) Chronic venous insufficiency: CODE(S): I87.2 - Venous insufficiency (chronic) (peripheral) (4) Delayed wound healing: CODE(S): T14.8XXD - Other injury of unspecified body region, subsequent encounter PLAN: Debridement done as documented above, procedure was well-tolerated. Continue Aquacel silver and care max care to all ulcers, change daily to twice daily depending on drainage. Continue use of compression stockings, leg elevation and exercise. Increased protein intake, protein supplements, zinc and vitamin C also recommended. His questions were answered and was advised to call with any further questions or concerns. Follow-up in 2 weeks. This note was generated with [employer] software. It may contain incorrect words, spelling, and punctuation that were not noted in checking the note before signing.
[2021-08-18 09:03] VITALS: BP 138/72; PULSE 89; TEMP 36.6; BMI 31.4
--- NOTE | 2021-08-18 10:43 | PN.PCM_ITS ---
History of Present Illness Date of Service: 08/18/21 Chief Complaint: ulcers to the left lower leg History of Wound: This is a 54-year-old male presents to wound healing center with a long-standing history of chronic venous insufficiency, chronic venous hypertension, lower extremity edema, lower extremity pain, and chronic left lower extremity ulcer. 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 He is currently wearing graduated compression stockings which are documented to be 20-30 mmHg compression and these are thigh high. He reports great compliance with use. He is also had previous arterial work-up with no intervention recommended by letter, his vascular surgeon. He denies taking nutritional supplementation. He saw dermatology and had a biopsy of the ulcer site. He also was previously treated by infectious disease for various contaminations and infections. He is not antibiotics at this time nor does he have any redness or odor coming from the wound. He denies fever, chill, nausea, vomiting, loss of appetite. Subjective Subjective Status post Covid a week ago. He reports change in color of his medial ankle ulcer. Chronic MRSA colonization. No chills, fever or otherwise feeling of unwell. He states that he has been doing his dressing changes as recommended. Objective Data Objective Data Vital Signs: Vital Signs Temp Pulse Resp BP Pulse Ox 97.8 F 89 18 138/72 H 99 08/18/21 09:03 08/18/21 09:03 07/29/21 00:22 08/18/21 09:03 07/29/21 00:22 Body Mass Index (BMI) 31.4 Charges/Coding Procedures Integumentary 111xxx-113xx: 34106 Lakeisha subq tissue 20 sq cm/< Add On Codes: 16588 Lakeisha subq tissue add-on (Additional square centimeter debrided, please refer to clinical note.) Physical Exam Const alert, oriented x3 and no apparent distress General Appearance: cooperative and comfortable Orientation / Consciousness: awake HEENT normocephalic Head and Scalp: normal to inspection, normocephalic and atraumatic Face and Sinus: normal facial exam Eyes EOMs intact bilaterally Neck full ROM and supple General: normal visual inspection Resp normal respiratory effort Effort and Inspection: able to speak in complete sentences GI non-tender Extremity normal to inspection General Extremity: edema Skin Wounds: wounds noted Neuro oriented x3 and CN's II-XII intact bilaterally Psych mental status grossly normal Appearance: grossly normal Debridement Note Debridement Note Wound debrided: Left medial ankle Type of Debridement: Excisional debridement Anesthesia Used: 4% Lidocaine Solution Depth: Down to and including healthy tissue and in the subcutaneous layer Percentage of wound debrided: 100 Instrument Used: 5mm curette Tissue Removed: Slough and devitalized tissue Severity: Fat Layer Exposed Amount of bleeding with debridement: Mild Bleeding Controlled with: Pressure Patient tolerated procedure: Patient tolerated procedure well Post-Debridement Measurements and Additional Note: Post-Debridement Measurements/Treatment - Nurse 1 - General Ulcer Assessment Start: 08/04/21 09:07 Freq: Status: Active Protocol: SHANTA Activity Type Activity Date Activity User E-Sign Co-Sign Detail Recorded Client Recorded Date Recorded By Document 08/04/21 09:08 REINA [id number] 08/04/21 09:10 KR Document 08/18/21 09:03 REINA [id number] 08/18/21 09:07 KR 08/04/21 08/18/21 09:08 09:03 - Today's Visit Information Type of service Follow-up Visit Follow-up Visit (Physician/COMMUNICATIONS STATION MANAGER (Physician/COMMUNICATIONS STATION MANAGER ) ) Arrival Mode Ambulatory Ambulatory Patient Identification Verified (Name & Yes Yes ) Height and Weight Body Mass Index (BMI) 31.4 31.4 BMI Classification Obese Obese Vital Signs Temperature (97.8 F-99.1 F) 97.0 F L 97.8 F Temperature Source Oral Temporal Pulse Rate (60-100) 115 H 89 Pulse Location Monitor Monitor Blood Pressure (90/60-120/80) 152/82 H 138/72 H Blood Pressure Mean (mm Hg) 105 94 Source Monitor Monitor Position Semi-Fowlers Sitting Blood Pressure Location Right Arm Left Arm History Since Last Visit- (Skip if this is Patient's initial visit) Have you changed medications since your No No last visit? Any new allergies or adverse reactions No No Had a fall/change in ADL's that may No No increase risk of falls Signs or symptoms of abuse and/or No No neglect since last visit Have you been in the hospital since your No No last visit? Has dressing in place as prescribed Yes Yes Has compression in place as prescribed Yes Yes Has offloadiing in place as prescribed N/A N/A Experienced any changes in pain level or No No management Left Footwear Regular Shoe Regular Shoe Right Footwear Regular Shoe Regular Shoe Pain Scale: 0-10 Numeric Is Patient Pain Free? Yes Yes WC - Nurse 1 - General Ulcer Measurement Start: 08/04/21 09:07 Freq: Status: Active Protocol: Activity Type Activity Date Activity User E-Sign Co-Sign Detail Recorded Client Recorded Date Recorded By Document 08/04/21 09:08 KR [id number] 08/04/21 09:10 KR Document 08/18/21 09:03 KR [id number] 08/18/21 09:07 KR Edit Result 08/18/21 09:03 KR (1) [id number] 08/18/21 09:10 KR (1) Left Calf (cm) => 36.1 Left Ankle (cm) => 24.5 08/04/21 08/18/21 09:08 09:03 Wound Center Nurse 1 #12 Medial Superior LLE -Current Size (cm) - Length 1.5 1.8 -Current Size (cm) - Width 1.5 0.1 -Current Size (cm) - Depth 0.1 0.1 -Total Square Cm 2.25 0.18 -Exudate Amt Medium Small -Exudate Type Serosanguineous Serosanguineous -Wound Margin Distinct, Distinct, Outline Outline Attached Attached -Granulation Amt Medium (34-66%) Medium (34-66%) -Granulation Quality Red Red -Necrosis Amt Small (1-33%) Medium (34-66%) -Necrotic Tissue Type Adherent Slough Adherent Slough -Texture (Ara-wound Skin Appearance) Assessed, Assessed, Scarring Scarring -Moisture (Ara-wound Skin Appearance) No Abnormality, Assessed,Dry/ Assessed Scaly -Color (Ara-wound Skin Appearance) No Abnormality, No Abnormality, Assessed Assessed -Temperature (Ara-wound Skin No Abnormality No Abnormality Appearance) (Pt Warm) (Pt Warm) -Tenderness on Palpation (Ara-wound No No Skin Appearance) -Ulcer Cleansing Rinsed/ Rinsed/ Irrigated with Irrigated with Saline Saline -Foul Odor after Cleansing No No -Anesthetic Used 4% Lidocaine 4% Lidocaine Solution Solution #11 Medial Inferior LLE -Current Size (cm) - Length 4.1 4.7 -Current Size (cm) - Width 3.5 3 -Current Size (cm) - Depth 0.1 0.2 -Total Square Cm 14.35 14.1 -Exudate Amt Medium Small -Exudate Type Serosanguineous Serosanguineous -Wound Margin Distinct, Distinct, Outline Outline Attached Attached -Granulation Amt Medium (34-66%) Medium (34-66%) -Granulation Quality Red Red -Necrosis Amt Small (1-33%) Medium (34-66%) -Necrotic Tissue Type Adherent Slough Adherent Slough -Texture (Ara-wound Skin Appearance) Assessed, Assessed, Scarring Scarring -Moisture (Ara-wound Skin Appearance) No Abnormality, Assessed,Dry/ Assessed Scaly -Color (Ara-wound Skin Appearance) No Abnormality, No Abnormality, Assessed Assessed -Temperature (Ara-wound Skin No Abnormality No Abnormality Appearance) (Pt Warm) (Pt Warm) -Tenderness on Palpation (Ara-wound No No Skin Appearance) -Ulcer Cleansing Rinsed/ Rinsed/ Irrigated with Irrigated with Saline Saline -Foul Odor after Cleansing No No -Anesthetic Used 4% Lidocaine 4% Lidocaine Solution Solution #10 Left Medial Ankle -Current Size (cm) - Length 2 5.8 -Current Size (cm) - Width 3.5 5 -Current Size (cm) - Depth 0.1 0.3 -Total Square Cm 7.0 29.0 -Exudate Amt Medium Medium -Exudate Type Serosanguineous Yellow/Green -Wound Margin Distinct, Distinct, Outline Outline Attached Attached -Granulation Amt Medium (34-66%) None Present (0 %) -Granulation Quality Red -Necrosis Amt Medium (34-66%) Large (67-100%) -Necrotic Tissue Type Adherent Slough Adherent Slough -Texture (Ara-wound Skin Appearance) Assessed, Assessed, Scarring Scarring -Moisture (Ara-wound Skin Appearance) Assessed, Assessed,Dry/ Maceration Scaly -Color (Ara-wound Skin Appearance) No Abnormality, No Abnormality, Assessed Assessed -Temperature (Ara-wound Skin No Abnormality No Abnormality Appearance) (Pt Warm) (Pt Warm) -Tenderness on Palpation (Ara-wound No No Skin Appearance) -Ulcer Cleansing Rinsed/ Rinsed/ Irrigated with Irrigated with Saline Saline -Foul Odor after Cleansing No No -Anesthetic Used 4% Lidocaine 4% Lidocaine Solution Solution Left Calf (cm) 36.1 Left Ankle (cm) 24.5 WC - Nurse 2 - General Ulcer CM Notes Start: 08/04/21 09:07 Freq: Status: Active Protocol: Activity Type Activity Date Activity User E-Sign Co-Sign Detail Recorded Client Recorded Date Recorded By Document 08/04/21 09:15 MW [id number] 08/04/21 09:21 MW Edit Result 08/04/21 09:15 MW (1) [id number] 08/05/21 07:00 PL Document 08/18/21 09:23 MW [id number] 08/18/21 09:31 MW (1) #12 Medial Superior LLE - Debridement, SubQ, ea addt'l 20sq cm => 1 or part thereof 08/04/21 08/18/21 09:15 09:23 Wound Center Nurse 2 #12 Medial Superior LLE -Time 09:16 09:24 -Correct Patient Yes Yes -Correct Side, Site, Position Yes Yes -Correct Procedure Yes Yes -Procedure Performed Yes Yes -Type of Procedure Debridement Debridement -Clinical Debridement Subcutaneous Subcutaneous -Tissue Removed Subcutaneous Subcutaneous -Post Debridement (cm) - Length 1.6 1.8 -Post Debridement (cm) - Width 1.5 1.8 -Post Debridement (cm) - Depth 0.1 0.1 -Total Square (Post) (cm) 2.40 3.24 -Area of Debridement (cm) - Length 1.6 1.8 -Area of Debridement (cm) - Width 1.5 1.8 -Total Square (Area) (cm) 2.40 3.24 -Tunneling No No -Undermining/Tunneling No No -Circular Undermining No No -Wound/Ulcer Outcome Not Healed Not Healed -Ulcer Cleansing Rinsed/ Rinsed/ Irrigated with Irrigated with Saline Saline -Foul Odor after Cleansing No No -Bioengineered Tissue No No -Bleeding Controlled with Pressure Pressure -Offloading No No -Treatment Response Procedure Procedure Tolerated Well Tolerated Well -Debridement - Subq, 1st 20sq cm Yes Yes -Debridement, SubQ, ea addt'l 20sq cm 1 1 or part thereof #11 Medial Inferior LLE -Time 09:17 09:24 -Correct Patient Yes Yes -Correct Side, Site, Position Yes Yes -Correct Procedure Yes Yes -Procedure Performed Yes -Type of Procedure Debridement Debridement -Clinical Debridement Subcutaneous Subcutaneous -Tissue Removed Subcutaneous Subcutaneous -Post Debridement (cm) - Length 3.5 3.3 -Post Debridement (cm) - Width 4.0 4.0 -Post Debridement (cm) - Depth 0.2 0.1 -Total Square (Post) (cm) 14.00 13.20 -Area of Debridement (cm) - Length 3.5 3.3 -Area of Debridement (cm) - Width 4.0 4.0 -Total Square (Area) (cm) 14.00 13.20 -Tunneling No No -Undermining/Tunneling No No -Circular Undermining No No -Wound/Ulcer Outcome Not Healed Not Healed -Ulcer Cleansing Rinsed/ Rinsed/ Irrigated with Irrigated with Saline Saline -Foul Odor after Cleansing No No -Bioengineered Tissue No No -Bleeding Controlled with Pressure Pressure -Offloading No No -Treatment Response Procedure Procedure Tolerated Well Tolerated Well -Debridement - Subq, 1st 20sq cm No No #10 Left Medial Ankle -Time 09:17 09:24 -Correct Patient Yes Yes -Correct Side, Site, Position Yes Yes -Correct Procedure Yes Yes -Procedure Performed Yes Yes -Type of Procedure Debridement Debridement -Clinical Debridement Subcutaneous Subcutaneous -Tissue Removed Subcutaneous Subcutaneous -Post Debridement (cm) - Length 4.0 4.0 -Post Debridement (cm) - Width 3.5 4.0 -Post Debridement (cm) - Depth 0.2 0.3 -Total Square (Post) (cm) 14.00 16.00 -Area of Debridement (cm) - Length 4.0 4.0 -Area of Debridement (cm) - Width 3.5 4.0 -Total Square (Area) (cm) 14.00 16.00 -Tunneling No No -Undermining/Tunneling No No -Circular Undermining No No -Wound/Ulcer Outcome Not Healed Not Healed -Ulcer Cleansing Rinsed/ Rinsed/ Irrigated with Irrigated with Saline Saline -Foul Odor after Cleansing No No -Bioengineered Tissue No No -Bleeding Controlled with Pressure Pressure -Offloading No No -Treatment Response Procedure Procedure Tolerated Well Tolerated Well -Debridement - Subq, 1st 20sq cm No No Pain Scale: 0-10 Numeric Is Patient Pain Free? Yes Yes WC - Nurse 3 - General Ulcer D/C NN Start: 08/04/21 09:07 Freq: Status: Active Protocol: Activity Type Activity Date Activity User E-Sign Co-Sign Detail Recorded Client Recorded Date Recorded By Document 08/04/21 09:25 KR [id number] 08/04/21 09:25 KR Document 08/18/21 09:42 KR [id number] 08/18/21 09:42 KR 08/04/21 08/18/21 09:25 09:42 Wound Care Nurse 3 #12 Medial Superior LLE -Ulcer Cleansing Rinsed/ Rinsed/ Irrigated with Irrigated with Saline Saline -Primary Dressing Covered/Secured with Dry Gauze, Secured with Tape #11 Medial Inferior LLE -Other Dressing abd pad -Primary Dressing Covered/Secured with Dry Gauze, Secured with Tape #10 Left Medial Ankle -Ulcer Cleansing Rinsed/ Rinsed/ Irrigated with Irrigated with Saline Saline -Other Dressing abd pad -Primary Dressing Covered/Secured with Dry Gauze, Secured with Tape Pain Scale: 0-10 Numeric Is Patient Pain Free? Yes Yes WC - Visit Discharge Discharge Condition Stable Stable Ambulatory Status Ambulatory Ambulatory Transportation Private Auto Private Auto Accompanied by self self Additional Wound Wound debrided: Left lower extremity (inferior) Type of Debridement: Excisional debridement Anesthesia Used: 4% Lidocaine Solution Depth: Down to and including healthy tissue Percentage of wound debrided: 100 Instrument Used: 5mm curette Tissue Removed: Slough and devitalized tissue Severity: Fat Layer Exposed Amount of bleeding with debridement: Mild Bleeding Controlled with: Pressure Patient tolerated procedure: Patient tolerated procedure well Additional Wound Wound debrided: Left lower extremity (superior) Type of Debridement: Excisional debridement Anesthesia Used: 4% Lidocaine Solution Depth: Down to and including healthy tissue and in the subcutaneous layer Percentage of wound debrided: 100 Instrument Used: 5mm curette Tissue Removed: Slough and devitalized tissue Severity: Fat Layer Exposed Amount of bleeding with debridement: Mild Bleeding Controlled with: Pressure Patient tolerated procedure: Patient tolerated procedure well Assessment/Plan Assessment/Plan (1) Ulcer of left lower extremity with fat layer exposed: CODE(S): L97.922 - Non-pressure chronic ulcer of unspecified part of left lower leg with fat layer exposed (2) PVD (peripheral vascular disease): CODE(S): I73.9 - Peripheral vascular disease, unspecified (3) Chronic venous insufficiency: CODE(S): I87.2 - Venous insufficiency (chronic) (peripheral) (4) Delayed wound healing: CODE(S): T14.8XXD - Other injury of unspecified body region, subsequent encounter PLAN: Debridement done as documented above, procedure was well-tolerated. Continue Aquacel silver and care max care to all ulcers, change daily to twice daily depending on drainage. Continue use of compression stockings, leg elevation and exercise. Increased protein intake, protein supplements, zinc and vitamin C also recommended. Started on doxycycline, 100 mg daily. We will treat for 3 months and reassess need for continued antibiotic prophylaxis. His questions were answered and was advised to call with any further questions or concerns. Follow-up in 2 weeks. This note was generated with [employer] dictation software. It may contain incorrect words, spelling, and punctuation that were not noted in checking the note before signing.
== END 2021-08-28 23:59 ==
LOC: WC 09:00
PROVIDERS: Visit Provider Internal Medicine
DX: I73.9 Peripheral vascular disease, unspecified (principal); I87.2 Venous insufficiency (chronic) (peripheral); R60.0 Localized edema; L97.322 Non-pressure chronic ulcer of left ankle with fat layer exposed
CPT/HCPCS: 11042; 11045

== ENCOUNTER 2021-09-15 10:00 | Outpatient (RCR) | payer BC, SELFPAY ==
[2021-08-29 00:18] VITALS: BP 138/72; PULSE 89; RESP 18; TEMP 36.6; O2SAT 99; BMI 31.4
[2021-09-01 09:02] VITALS: BP 148/97; PULSE 83; RESP 16; TEMP 36.4; BMI 31.4
--- NOTE | 2021-09-01 09:50 | PN.PCM_ITS ---
History of Present Illness Date of Service: 09/01/21 Chief Complaint: ulcers to the left lower leg History of Wound: This is a 54-year-old male presents to wound healing center with a long-standing history of chronic venous insufficiency, chronic venous hypertension, lower extremity edema, lower extremity pain, and chronic left lower extremity ulcer. The patient has previously undergone endovenous laser ablation of the left and right great saphenous vein, the small saphenous vein, the left accessory saphenous vein, and an incompetent left calf honey grader and blender vein located 15 cm proximal to the left medial malleolus. He is currently wearing graduated compression stockings which are documented to be 20-30 mmHg compression and these are thigh high. He reports great compliance with use. He is also had previous arterial work-up with no intervention recommended by letter, his vascular surgeon. He denies taking nutritional supplementation. He saw dermatology and had a biopsy of the ulcer site. He also was previously treated by infectious disease for various contaminations and infections. He is not antibiotics at this time nor does he have any redness or odor coming from the wound. He denies fever, chill, nausea, vomiting, loss of appetite. Subjective Subjective No new concerns at this time. Applying dressing as recommended. also currently on antibiotic prophylaxis (doxycycline). Objective Data Objective Data Vital Signs: Vital Signs Temp Pulse Resp BP Pulse Ox 97.6 F L 83 16 148/97 H 99 09/01/21 09:02 09/01/21 09:02 09/01/21 09:02 09/01/21 09:02 08/29/21 00:18 Body Mass Index (BMI) 31.4 Charges/Coding Procedures Integumentary 111xxx-113xx: 09009 Lakeisha subq tissue 20 sq cm/< Add On Codes: 37758 Lakeisha subq tissue add-on (x1. Additional square centimeter debrided, please refer to clinical note.) Physical Exam Const alert, oriented x3 and no apparent distress General Appearance: cooperative and comfortable Orientation / Consciousness: awake HEENT normocephalic Head and Scalp: normal to inspection, normocephalic and atraumatic Face and Sinus: normal facial exam Eyes EOMs intact bilaterally Neck full ROM and supple General: normal visual inspection Resp normal respiratory effort Effort and Inspection: able to speak in complete sentences GI non-tender Extremity normal to inspection General Extremity: edema Skin Wounds: wounds noted Neuro oriented x3 and CN's II-XII intact bilaterally Psych mental status grossly normal Appearance: grossly normal Debridement Note Debridement Note Wound debrided: Left medial ankle Type of Debridement: Excisional debridement Anesthesia Used: 4% Lidocaine Solution Depth: Down to and including healthy tissue and in the subcutaneous layer Percentage of wound debrided: 100 Instrument Used: 5mm curette Tissue Removed: Slough and devitalized tissue Severity: Fat Layer Exposed Amount of bleeding with debridement: Mild Bleeding Controlled with: Pressure Patient tolerated procedure: Patient tolerated procedure well Post-Debridement Measurements and Additional Note: Post-Debridement Measurements/Treatment - Nurse 1 - General Ulcer Assessment Start: 09/01/21 09:02 Freq: Status: Active Protocol: SHANTA Activity Type Activity Date Activity User E-Sign Co-Sign Detail Recorded Client Recorded Date Recorded By Document 09/01/21 09:02 ML [id number] 09/01/21 09:12 ML Edit Result 09/01/21 09:02 ML (1) [id number] 09/01/21 09:16 ML (1) Type of service => Follow-up Visit ( => Physician/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 Any new allergies or adverse reactions => No Had a fall/change in ADL's that may => No increase risk of falls Signs or symptoms of abuse and/or => No neglect since last visit Have you been in the hospital since your => No last visit? Has dressing in place as prescribed => Yes Has compression in place as prescribed => Yes Has offloadiing in place as prescribed => N/A Experienced any changes in pain level or => No management Left Footwear => Regular Shoe Right Footwear => Regular Shoe Is Patient Pain Free? => Yes 09/01/21 09:02 WC - Today's Visit Information Type of service Follow-up Visit (Physician/BLOWN FILM EXTRUSION OPERATOR ) Arrival Mode Ambulatory Patient Identification Verified (Name & Yes ) Patient Requires Transmission-Based No Precautions Safety Precautions NA Height and Weight Body Mass Index (BMI) 31.4 BMI Classification Obese Vital Signs Temperature (97.8 F-99.1 F) 97.6 F L Temperature Source Temporal Pulse Rate (60-100) 83 Pulse Location Monitor Respiratory Rate (12-18) 16 Blood Pressure (90/60-120/80) 148/97 H Blood Pressure Mean (mm Hg) 114 Source Monitor Position Sitting Blood Pressure Location Left Arm History Since Last Visit- (Skip if this is Patient's initial visit) Have you changed medications since your No last visit? Any new allergies or adverse reactions No Had a fall/change in ADL's that may No increase risk of falls Signs or symptoms of abuse and/or No neglect since last visit Have you been in the hospital since your No last visit? Has dressing in place as prescribed Yes Has compression in place as prescribed Yes Has offloadiing in place as prescribed N/A Experienced any changes in pain level or No management Left Footwear Regular Shoe Right Footwear Regular Shoe Pain Scale: 0-10 Numeric Is Patient Pain Free? Yes - Nurse 1 - General Ulcer Measurement Start: 09/01/21 09:02 Freq: Status: Active Protocol: Activity Type Activity Date Activity User E-Sign Co-Sign Detail Recorded Client Recorded Date Recorded By Document 09/01/21 09:02 [id number] 09/01/21 09:12 ML 09/01/21 09:02 Wound Center Nurse 1 #12 Medial Superior LLE -Current Size (cm) - Length 1.8 -Current Size (cm) - Width 1.9 -Current Size (cm) - Depth 0.1 -Total Square Cm 3.42 -Exudate Amt Medium -Exudate Type Serosanguineous -Wound Margin Distinct, Outline Attached -Granulation Amt Medium (34-66%) -Necrosis Amt Medium (34-66%) -Necrotic Tissue Type Adherent Slough -Texture (Ara-wound Skin Appearance) Assessed -Moisture (Ara-wound Skin Appearance) Assessed -Color (Ara-wound Skin Appearance) Assessed -Temperature (Ara-wound Skin No Abnormality Appearance) (Pt Warm) -Tenderness on Palpation (Ara-wound No Skin Appearance) -Ulcer Cleansing Soap and Water -Foul Odor after Cleansing No -Anesthetic Used 4% Lidocaine Solution #11 Medial Inferior LLE -Current Size (cm) - Length 4.1 -Current Size (cm) - Width 4.2 -Current Size (cm) - Depth 0.2 -Total Square Cm 17.22 -Exudate Amt Medium -Exudate Type Serosanguineous -Wound Margin Distinct, Outline Attached -Granulation Amt Medium (34-66%) -Necrosis Amt Medium (34-66%) -Necrotic Tissue Type Adherent Slough -Texture (Ara-wound Skin Appearance) Assessed -Moisture (Ara-wound Skin Appearance) Assessed -Color (Ara-wound Skin Appearance) Assessed -Temperature (Ara-wound Skin No Abnormality Appearance) (Pt Warm) -Tenderness on Palpation (Ara-wound No Skin Appearance) -Ulcer Cleansing Soap and Water -Foul Odor after Cleansing No -Anesthetic Used 4% Lidocaine Solution #10 Left Medial Ankle -Current Size (cm) - Length 4.5 -Current Size (cm) - Width 4.2 -Current Size (cm) - Depth 0.3 -Total Square Cm 18.90 -Exudate Amt Medium -Exudate Type Serosanguineous -Wound Margin Distinct, Outline Attached -Granulation Amt Medium (34-66%) -Slough/Fibrin Yes -Necrosis Amt Medium (34-66%) -Necrotic Tissue Type Adherent Slough -Texture (Ara-wound Skin Appearance) Assessed -Moisture (Ara-wound Skin Appearance) Assessed -Color (Ara-wound Skin Appearance) Assessed -Temperature (Ara-wound Skin No Abnormality Appearance) (Pt Warm) -Tenderness on Palpation (Ara-wound No Skin Appearance) -Ulcer Cleansing Soap and Water -Foul Odor after Cleansing No -Anesthetic Used 4% Lidocaine Solution Left Calf (cm) 34.1 Left Ankle (cm) 23.2 Additional Wound Wound debrided: Left lower extremity ( Inferior ) Type of Debridement: Excisional debridement Anesthesia Used: 4% Lidocaine Solution Depth: Down to and including healthy tissue and in the subcutaneous layer Percentage of wound debrided: 100 Instrument Used: 5mm curette Tissue Removed: Slough and devitalized tissue Severity: Fat Layer Exposed Amount of bleeding with debridement: Mild Bleeding Controlled with: Pressure Patient tolerated procedure: Patient tolerated procedure well Additional Wound Wound debrided: Left lower extremity ( Superior ) Type of Debridement: Excisional debridement Anesthesia Used: 4% Lidocaine Solution Depth: Down to and including healthy tissue and in the subcutaneous layer Percentage of wound debrided: 100 Instrument Used: 5mm curette Tissue Removed: Slough and devitalized tissue Severity: Fat Layer Exposed Amount of bleeding with debridement: Mild Bleeding Controlled with: Pressure Patient tolerated procedure: Patient tolerated procedure well Assessment/Plan Assessment/Plan (1) Ulcer of left lower extremity with fat layer exposed: CODE(S): L97.922 - Non-pressure chronic ulcer of unspecified part of left lower leg with fat layer exposed (2) PVD (peripheral vascular disease): CODE(S): I73.9 - Peripheral vascular disease, unspecified (3) Chronic venous insufficiency: CODE(S): I87.2 - Venous insufficiency (chronic) (peripheral) (4) Delayed wound healing: CODE(S): T14.8XXD - Other injury of unspecified body region, subsequent encounter PLAN: Debridement done as documented above, procedure was well-tolerated. Continue Aquacel silver and care max care to all ulcers, change daily to twice daily depending on drainage. Continue use of compression stockings, leg elevation and exercise. Increased protein intake, protein supplements, zinc and vitamin C also recommended. Continue doxycycline for antibiotic prophylaxis due to MRSA colonization. His questions were answered and was advised to call with any further questions or concerns. Follow-up in 2 weeks. This note was generated with [employer] dictation software. It may contain incorrect words, spelling, and punctuation that were not noted in checking the note before signing.
[2021-09-15 09:12] VITALS: BP 155/88; PULSE 94; RESP 16; TEMP 36.2; BMI 31.4
--- NOTE | 2021-09-15 10:39 | PCM.WC.PN ---
History of Present Illness Date of Service: 09/15/21 Chief Complaint: ulcers to the left lower leg History of Wound: This is a 54-year-old male presents to wound healing center with a long-standing history of chronic venous insufficiency, chronic venous hypertension, lower extremity edema, lower extremity pain, and chronic left lower extremity ulcer. 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 He is currently wearing graduated compression stockings which are documented to be 20-30 mmHg compression and these are thigh high. He reports great compliance with use. He is also had previous arterial work-up with no intervention recommended by letter, his vascular surgeon. He denies taking nutritional supplementation. He saw dermatology and had a biopsy of the ulcer site. He also was previously treated by infectious disease for various contaminations and infections. He is not antibiotics at this time nor does he have any redness or odor coming from the wound. He denies fever, chill, nausea, vomiting, loss of appetite. Progress of Wound: Currently on doxycyline for prophylaxis. Has been doing dressing changes as recommended. Inferior ulcer with some sworsening Subjective Subjective No new concerns at this time. Objective Data Objective Data Vital Signs: Vital Signs Temp Pulse Resp BP Pulse Ox 97.2 F L 94 16 155/88 H 99 09/15/21 09:12 09/15/21 09:12 09/15/21 09:12 09/15/21 09:12 08/29/21 00:18 Body Mass Index (BMI) 31.4 Charges/Coding Procedures Integumentary 111xxx-113xx: 69104 Lakeisha subq tissue 20 sq cm/< Add On Codes: 56030 Lakeisha subq tissue add-on (X2 additional square centimeter debrided, please refer to clinical note) Physical Exam Const alert, oriented x3 and no apparent distress General Appearance: cooperative and comfortable Orientation / Consciousness: awake HEENT normocephalic Head and Scalp: normal to inspection, normocephalic and atraumatic Face and Sinus: normal facial exam Eyes EOMs intact bilaterally Neck full ROM and supple General: normal visual inspection Resp normal respiratory effort Effort and Inspection: able to speak in complete sentences GI non-tender Extremity normal to inspection General Extremity: edema Skin Wounds: wounds noted Neuro oriented x3 and CN's II-XII intact bilaterally Psych mental status grossly normal Appearance: grossly normal Debridement Note Debridement Note Wound debrided: Left Medial Ankle Type of Debridement: Excisional debridement Anesthesia Used: 4% Lidocaine Solution Depth: Down to and including healthy tissue and in the subcutaneous layer Percentage of wound debrided: 100 Instrument Used: 5mm curette Tissue Removed: Slough and devitalized tissue Severity: Fat Layer Exposed Amount of bleeding with debridement: Mild Bleeding Controlled with: Pressure Patient tolerated procedure: Patient tolerated procedure well Post-Debridement Measurements and Additional Note: Post-Debridement Measurements/Treatment KIMBERLY - Nurse 1 - General Ulcer Assessment Start: 09/01/21 09:02 Freq: Status: Active Protocol: SHANTA Activity Type Activity Date Activity User E-Sign Co-Sign Detail Recorded Client Recorded Date Recorded By Document 09/01/21 09:02 ML [id number] 09/01/21 09:12 ML Edit Result 09/01/21 09:02 ML (1) [id number] 09/01/21 09:16 ML Document 09/15/21 09:12 [id number] 09/15/21 09:16 JF (1) Type of service => Follow-up Visit ( => Physician/COMPUTER FORENSIC SPECIALIST) Arrival Mode => Ambulatory Patient Identification Verified (Name & => Yes ) Patient Requires Transmission-Based => No Precautions Safety Precautions => NA Temperature (97.8 F-99.1 F) => 97.6 F L Temperature Source => Temporal Pulse Rate (60-100) => 83 Pulse Location => Monitor Respiratory Rate (12-18) => 16 Blood Pressure (90/60-120/80) => 148/97 H Blood Pressure Mean (mm Hg) => 114 Source => Monitor Position => Sitting Blood Pressure Location => Left Arm Have you changed medications since your => No last visit? Any new allergies or adverse reactions => No Had a fall/change in ADL's that may => No increase risk of falls Signs or symptoms of abuse and/or => No neglect since last visit Have you been in the hospital since your => No last visit? Has dressing in place as prescribed => Yes Has compression in place as prescribed => Yes Has offloadiing in place as prescribed => N/A Experienced any changes in pain level or => No management Left Footwear => Regular Shoe Right Footwear => Regular Shoe Is Patient Pain Free? => Yes 09/01/21 09/15/21 09:02 09:12 - Today's Visit Information Type of service Follow-up Visit Follow-up Visit (Physician/COMPUTER FORENSIC SPECIALIST (Physician/COMPUTER FORENSIC SPECIALIST ) ) Arrival Mode Ambulatory Ambulatory Patient Identification Verified (Name & Yes Yes ) Patient Requires Transmission-Based No No Precautions Safety Precautions NA Height and Weight Body Mass Index (BMI) 31.4 31.4 BMI Classification Obese Obese Vital Signs Temperature (97.8 F-99.1 F) 97.6 F L 97.2 F L Temperature Source Temporal Temporal Pulse Rate (60-100) 83 94 Pulse Location Monitor Monitor Respiratory Rate (12-18) 16 16 Respiratory rate source Observation Blood Pressure (90/60-120/80) 148/97 H 155/88 H Blood Pressure Mean (mm Hg) 114 110 Source Monitor Monitor Position Sitting Semi-Fowlers Blood Pressure Location Left Arm Left Arm History Since Last Visit- (Skip if this is Patient's initial visit) Have you changed medications since your No No last visit? Any new allergies or adverse reactions No No Had a fall/change in ADL's that may No No increase risk of falls Signs or symptoms of abuse and/or No No neglect since last visit Have you been in the hospital since your No No last visit? Has dressing in place as prescribed Yes Yes Has compression in place as prescribed Yes Yes Has offloadiing in place as prescribed N/A N/A Experienced any changes in pain level or No No management Left Footwear Regular Shoe Regular Shoe Right Footwear Regular Shoe Regular Shoe Pain Scale: 0-10 Numeric Is Patient Pain Free? Yes Yes - Nurse 1 - General Ulcer Measurement Start: 09/01/21 09:02 Freq: Status: Active Protocol: Activity Type Activity Date Activity User E-Sign Co-Sign Detail Recorded Client Recorded Date Recorded By Document 09/01/21 09:02 ML [id number] 09/01/21 09:12 ML Document 09/15/21 09:12 CARLOS [id number] 09/15/21 09:16 CARLOS 09/01/21 09/15/21 09:02 09:12 Wound Center Nurse 1 #12 Medial Superior LLE -Combined with other wound No -Current Size (cm) - Length 1.8 1.5 -Current Size (cm) - Width 1.9 1.5 -Current Size (cm) - Depth 0.1 0.1 -Total Square Cm 3.42 2.25 -Photo Taken No -Epithelialization Small 1-33% -Tunneling No -Undermining/Tunneling No -Circular Undermining No -Exudate Amt Medium Small -Exudate Type Serosanguineous Serosanguineous -Wound Margin Distinct, Flat & Intact Outline Attached -Granulation Amt Medium (34-66%) Medium (34-66%) -Granulation Quality [place] -Slough/Fibrin Yes -Necrosis Amt Medium (34-66%) Medium (34-66%) -Necrotic Tissue Type Adherent Slough Adherent Slough -Structure Exposed N/A -Texture (Ara-wound Skin Appearance) Assessed Assessed, Localized Edema -Moisture (Ara-wound Skin Appearance) Assessed Assessed,Dry/ Scaly -Color (Ara-wound Skin Appearance) Assessed Assessed, Hemosiderin Staining -Temperature (Ara-wound Skin No Abnormality No Abnormality Appearance) (Pt Warm) (Pt Warm) -Tenderness on Palpation (Ara-wound No No Skin Appearance) -Ulcer Cleansing Soap and Water Rinsed/ Irrigated with Saline -Foul Odor after Cleansing No Yes -Anesthetic Used 4% Lidocaine 4% Lidocaine Solution Solution #11 Medial Inferior LLE -Combined with other wound No -Current Size (cm) - Length 4.1 2.5 -Current Size (cm) - Width 4.2 5 -Current Size (cm) - Depth 0.2 0.1 -Total Square Cm 17.22 12.5 -Photo Taken No -Epithelialization Small 1-33% -Tunneling No -Undermining/Tunneling No -Circular Undermining No -Exudate Amt Medium Medium -Exudate Type Serosanguineous Serosanguineous -Wound Margin Distinct, Flat & Intact Outline Attached -Granulation Amt Medium (34-66%) Medium (34-66%) -Granulation Quality [place] -Slough/Fibrin Yes -Necrosis Amt Medium (34-66%) Medium (34-66%) -Necrotic Tissue Type Adherent Slough Adherent Slough -Structure Exposed N/A -Texture (Ara-wound Skin Appearance) Assessed Assessed, Localized Edema -Moisture (Ara-wound Skin Appearance) Assessed No Abnormality, Dry/Scaly -Color (Ara-wound Skin Appearance) Assessed Assessed, Hemosiderin Staining -Temperature (Ara-wound Skin No Abnormality No Abnormality Appearance) (Pt Warm) (Pt Warm) -Tenderness on Palpation (Ara-wound No No Skin Appearance) -Ulcer Cleansing Soap and Water Rinsed/ Irrigated with Saline -Foul Odor after Cleansing No No -Anesthetic Used 4% Lidocaine 4% Lidocaine Solution Solution #10 Left Medial Ankle -Combined with other wound No -Current Size (cm) - Length 4.5 5.5 -Current Size (cm) - Width 4.2 4 -Current Size (cm) - Depth 0.3 0.1 -Total Square Cm 18.90 22.0 -Photo Taken No -Epithelialization Small 1-33% -Tunneling No -Undermining/Tunneling No -Circular Undermining No -Exudate Amt Medium Medium -Exudate Type Serosanguineous Serosanguineous -Wound Margin Distinct, Flat & Intact Outline Attached -Granulation Amt Medium (34-66%) Medium (34-66%) -Granulation Quality Red -Slough/Fibrin Yes Yes -Necrosis Amt Medium (34-66%) Medium (34-66%) -Necrotic Tissue Type Adherent Slough Eschar -Structure Exposed N/A -Texture (Ara-wound Skin Appearance) Assessed Assessed -Moisture (Ara-wound Skin Appearance) Assessed Assessed,Dry/ Scaly -Color (Ara-wound Skin Appearance) Assessed Assessed, Hemosiderin Staining -Temperature (Raa-wound Skin No Abnormality No Abnormality Appearance) (Pt Warm) (Pt Warm) -Tenderness on Palpation (Ara-wound No No Skin Appearance) -Ulcer Cleansing Soap and Water Wound Cleanser -Foul Odor after Cleansing No No -Anesthetic Used 4% Lidocaine 4% Lidocaine Solution Solution Lower Limb Edema Present Yes Left Calf (cm) 34.1 35 Left Ankle (cm) 23.2 23 WC - Nurse 2 - General Ulcer CM Notes Start: 09/01/21 09:02 Freq: Status: Active Protocol: Activity Type Activity Date Activity User E-Sign Co-Sign Detail Recorded Client Recorded Date Recorded By Document 09/01/21 10:43 PL [id number] 09/01/21 10:47 PL Document 09/15/21 09:31 MW [id number] 09/15/21 09:42 MW 09/01/21 09/15/21 10:43 09:31 Wound Center Nurse 2 #12 Medial Superior LLE -Time 09: 09:31 -Correct Patient Yes Yes -Correct Side, Site, Position Yes -Correct Procedure Yes -Procedure Performed Yes Yes -Type of Procedure Debridement Debridement -Clinical Debridement Subcutaneous Subcutaneous -Tissue Removed Subcutaneous Subcutaneous -Post Debridement (cm) - Length 1.0 1.8 -Post Debridement (cm) - Width 1.8 1.8 -Post Debridement (cm) - Depth 0.1 0.1 -Total Square (Post) (cm) 1.80 3.24 -Area of Debridement (cm) - Length 1.0 1.8 -Area of Debridement (cm) - Width 1.8 1.8 -Total Square (Area) (cm) 1.80 3.24 -Tunneling No No -Undermining/Tunneling No No -Circular Undermining No No -Wound/Ulcer Outcome Not Healed Not Healed -Ulcer Cleansing Rinsed/ Rinsed/ Irrigated with Irrigated with Saline Saline -Foul Odor after Cleansing No No -Bioengineered Tissue No No -Bleeding Controlled with Pressure -Offloading No -Treatment Response Procedure Tolerated Well -Debridement - Subq, 1st 20sq cm No Yes #11 Medial Inferior LLE -Time 09: 09:32 -Correct Patient Yes Yes -Correct Side, Site, Position Yes Yes -Correct Procedure Yes Yes -Procedure Performed Yes Yes -Type of Procedure Debridement Debridement -Clinical Debridement Subcutaneous Subcutaneous -Tissue Removed Subcutaneous Subcutaneous -Post Debridement (cm) - Length 3.0 3.5 -Post Debridement (cm) - Width 3.0 5.5 -Post Debridement (cm) - Depth 0.1 0.1 -Total Square (Post) (cm) 9.00 19.25 -Area of Debridement (cm) - Length 3.0 3.5 -Area of Debridement (cm) - Width 3.0 5.5 -Total Square (Area) (cm) 9.00 19.25 -Tunneling No No -Undermining/Tunneling No No -Circular Undermining No No -Wound/Ulcer Outcome Not Healed Not Healed -Ulcer Cleansing Rinsed/ Rinsed/ Irrigated with Irrigated with Saline Saline -Foul Odor after Cleansing No No -Bioengineered Tissue No No -Bleeding Controlled with Pressure NA -Offloading No -Treatment Response Procedure Procedure Tolerated Well Tolerated Well -Debridement - Subq, 1st 20sq cm Yes No #10 Left Medial Ankle -Time 09:30 09:32 -Correct Patient Yes Yes -Correct Side, Site, Position Yes Yes -Correct Procedure Yes Yes -Procedure Performed Yes Yes -Type of Procedure Debridement Debridement -Clinical Debridement Subcutaneous Subcutaneous -Tissue Removed Subcutaneous Subcutaneous -Post Debridement (cm) - Length 4.0 4.5 -Post Debridement (cm) - Width 4.0 4.3 -Post Debridement (cm) - Depth 0.1 0.2 -Total Square (Post) (cm) 16.00 19.35 -Area of Debridement (cm) - Length 4.0 4.5 -Area of Debridement (cm) - Width 4.0 4.3 -Total Square (Area) (cm) 16.00 19.35 -Tunneling No No -Undermining/Tunneling No No -Circular Undermining No No -Wound/Ulcer Outcome Not Healed Not Healed -Ulcer Cleansing Rinsed/ Rinsed/ Irrigated with Irrigated with Saline Saline -Foul Odor after Cleansing No No -Bioengineered Tissue No No -Bleeding Controlled with Pressure Pressure -Offloading No -Treatment Response Procedure Procedure Tolerated Well Tolerated Well -Debridement - Subq, 1st 20sq cm No No Pain Scale: 0-10 Numeric Is Patient Pain Free? Yes - Nurse 3 - General Ulcer D/C NN Start: 09/01/21 09:02 Freq: Status: Active Protocol: Activity Type Activity Date Activity User E-Sign Co-Sign Detail Recorded Client Recorded Date Recorded By Document 09/01/21 09:49 DL [id number] 09/01/21 09:51 DL Document 09/15/21 09:47 [id number] 09/15/21 09:48 JF 09/01/21 09/15/21 09:49 09:47 Wound Care Nurse 3 #12 Medial Superior LLE -Ulcer Cleansing Rinsed/ Rinsed/ Irrigated with Irrigated with Saline Saline -Foul Odor after Cleansing No No -Primary Dressing Applied Aquacel AG 4x4 -Other Dressing aquacel ag kerramax and ABD pad -Primary Dressing Covered/Secured with Dry Gauze & Secured with Roll Gauze, Tape Secured with Tape -Aquacel AG 4x4 1 #11 Medial Inferior LLE -Ulcer Cleansing Rinsed/ Rinsed/ Irrigated with Irrigated with Saline Saline -Foul Odor after Cleansing No No -Primary Dressing Applied Aquacel AG 4x4 -Other Dressing aquacel ag kerramax/abd -Primary Dressing Covered/Secured with Dry Gauze & Secured with Roll Gauze, Tape Secured with Tape -Aquacel AG 4x4 0 #10 Left Medial Ankle -Ulcer Cleansing Rinsed/ Rinsed/ Irrigated with Irrigated with Saline Saline -Foul Odor after Cleansing No No -Primary Dressing Applied Aquacel AG 4x4 -Other Dressing aquacel ag kerramax/abd pad -Primary Dressing Covered/Secured with Dry Gauze & Secured with Roll Gauze, Tape Secured with Tape -Aquacel AG 4x4 0 Left -Stockings Yes Yes Treatment Response Procedure Tolerated Well Pain Scale: 0-10 Numeric Is Patient Pain Free? Yes Yes WC - Visit Discharge Discharge Condition Stable Stable Ambulatory Status Ambulatory Ambulatory Transportation Private Auto Private Auto Medication Reconcilliation completed & Yes provided to patient/care provider Clinical Summary of Care Provided Yes Additional Wound Wound debrided: Left lower extremity ( Inferior ) Type of Debridement: Excisional debridement Anesthesia Used: 4% Lidocaine Solution Depth: Down to and including healthy tissue and in the subcutaneous layer Percentage of wound debrided: 100 Instrument Used: 5mm curette Tissue Removed: Slough and devitalized tissue Severity: Fat Layer Exposed Amount of bleeding with debridement: Mild Bleeding Controlled with: Pressure Patient tolerated procedure: Patient tolerated procedure well Additional Wound Wound debrided: Left lower extremity ( Superior ) Type of Debridement: Excisional debridement Anesthesia Used: 4% Lidocaine Solution Depth: Down to and including healthy tissue and in the subcutaneous layer Percentage of wound debrided: 100 Instrument Used: 5mm curette Tissue Removed: Slough and devitalized tissue Severity: Fat Layer Exposed Amount of bleeding with debridement: Mild Bleeding Controlled with: Pressure Patient tolerated procedure: Patient tolerated procedure well Assessment/Plan Assessment/Plan (1) Ulcer of left lower extremity with fat layer exposed: CODE(S): L97.922 - Non-pressure chronic ulcer of unspecified part of left lower leg with fat layer exposed (2) PVD (peripheral vascular disease): CODE(S): I73.9 - Peripheral vascular disease, unspecified (3) Chronic venous insufficiency: CODE(S): I87.2 - Venous insufficiency (chronic) (peripheral) (4) Delayed wound healing: CODE(S): T14.8XXD - Other injury of unspecified body region, subsequent encounter PLAN: Debridement done as documented above, procedure was well-tolerated. Some worsening of the inferior and medial ulcers. Will monitor for now. Continue Aquacel silver and care max care to all ulcers, change daily to twice daily depending on drainage. Continue use of compression stockings, leg elevation and exercise. Increased protein intake, protein supplements, zinc and vitamin C also recommended. Continue doxycycline for antibiotic prophylaxis due to MRSA colonization. His questions were answered and was advised to call with any further questions or concerns. Follow-up in 2 weeks. This note was generated with [employer] dictation software. It may contain incorrect words, spelling, and punctuation that were not noted in checking the note before signing.
== END 2021-09-27 23:59 ==
LOC: WC 10:00
PROVIDERS: Visit Provider Internal Medicine
DX: I73.9 Peripheral vascular disease, unspecified (principal); I87.2 Venous insufficiency (chronic) (peripheral); R60.0 Localized edema; L97.322 Non-pressure chronic ulcer of left ankle with fat layer exposed
CPT/HCPCS: 11042; 11045

== ENCOUNTER 2021-10-27 09:00 | Outpatient (RCR) | payer BC, SELFPAY ==
[2021-09-28 00:23] VITALS: BP 155/88; PULSE 94; RESP 16; TEMP 36.2; O2SAT 99; BMI 31.4
[2021-09-29 09:01] VITALS: BP 154/84; PULSE 99; RESP 16; TEMP 36.4; BMI 31.4
--- NOTE | 2021-09-29 11:39 | PN.PCM_ITS ---
History of Present Illness Date of Service: 09/29/21 Chief Complaint: ulcers to the left lower leg History of Wound: This is a 54-year-old male presents to wound healing center with a long-standing history of chronic venous insufficiency, chronic venous hypertension, lower extremity edema, lower extremity pain, and chronic left lower extremity ulcer. 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 He is currently wearing graduated compression stockings which are documented to be 20-30 mmHg compression and these are thigh high. He reports great compliance with use. He is also had previous arterial work-up with no intervention recommended by letter, his vascular surgeon. He denies taking nutritional supplementation. He saw dermatology and had a biopsy of the ulcer site. He also was previously treated by infectious disease for various contaminations and infections. He is not antibiotics at this time nor does he have any redness or odor coming from the wound. He denies fever, chill, nausea, vomiting, loss of appetite. Progress of Wound: Over all stable. No new concerns at this time. Subjective Subjective No new concerns at this time. Objective Data Objective Data Vital Signs: Vital Signs Temp Pulse Resp BP Pulse Ox 97.6 F L 99 16 154/84 H 99 09/29/21 09:01 09/29/21 09:01 09/29/21 09:01 09/29/21 09:01 09/28/21 00:23 Body Mass Index (BMI) 31.4 Charges/Coding Procedures Integumentary 111xxx-113xx: [id number] Lakeisha subq tissue 20 sq cm/< Add On Codes: 65785 Lakeisha subq tissue add-on (X2 additional square centimeter debrided, please refer to clinical note) Physical Exam Const alert, oriented x3 and no apparent distress General Appearance: cooperative and comfortable Orientation / Consciousness: awake HEENT normocephalic Head and Scalp: normal to inspection, normocephalic and atraumatic Face and Sinus: normal facial exam Eyes EOMs intact bilaterally Neck full ROM and supple General: normal visual inspection Resp normal respiratory effort Effort and Inspection: able to speak in complete sentences GI non-tender Extremity normal to inspection General Extremity: edema Skin Wounds: wounds noted Neuro oriented x3 and CN's II-XII intact bilaterally Psych mental status grossly normal Appearance: grossly normal Debridement Note Debridement Note Wound debrided: Left medial ankle Type of Debridement: Excisional debridement Anesthesia Used: 4% Lidocaine Solution Depth: Down to and including healthy tissue and in the subcutaneous layer Percentage of wound debrided: 100 Instrument Used: 5mm curette Tissue Removed: Slough and devitalized tissue Severity: Fat Layer Exposed Amount of bleeding with debridement: Mild Bleeding Controlled with: Pressure Patient tolerated procedure: Patient tolerated procedure well Post-Debridement Measurements and Additional Note: Post-Debridement Measurements/Treatment - Nurse 1 - General Ulcer Assessment Start: 09/29/21 08:59 Freq: Status: Active Protocol: SHANTA Activity Type Activity Date Activity User E-Sign Co-Sign Detail Recorded Client Recorded Date Recorded By Document 09/29/21 09:01 CARLOS [id number] 09/29/21 09:06 CARLOS 09/29/21 09:01 WC - Today's Visit Information Type of service Follow-up Visit (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/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 ) Arrival Mode Ambulatory Patient Identification Verified (Name & Yes ) Patient Requires Transmission-Based No Precautions Height and Weight Body Mass Index (BMI) 31.4 BMI Classification Obese Vital Signs Temperature (97.8 F-99.1 F) 97.6 F L Temperature Source Temporal Pulse Rate (60-100) 99 Pulse Location Monitor Respiratory Rate (12-18) 16 Respiratory rate source Observation Blood Pressure (90/60-120/80) 154/84 H Blood Pressure Mean (mm Hg) 107 Source Monitor Position Semi-Fowlers Blood Pressure Location Left Arm History Since Last Visit- (Skip if this is Patient's initial visit) Have you changed medications since your No last visit? Any new allergies or adverse reactions No Had a fall/change in ADL's that may No increase risk of falls Signs or symptoms of abuse and/or No neglect since last visit Have you been in the hospital since your No last visit? Has dressing in place as prescribed Yes Has compression in place as prescribed Yes Has offloadiing in place as prescribed N/A Experienced any changes in pain level or No management Left Footwear Regular Shoe Right Footwear Regular Shoe Pain Scale: 0-10 Numeric Is Patient Pain Free? Yes - Nurse 1 - General Ulcer Measurement Start: 09/29/21 08:59 Freq: Status: Active Protocol: Activity Type Activity Date Activity User E-Sign Co-Sign Detail Recorded Client Recorded Date Recorded By Document 09/29/21 09:01 CARLOS [id number] 09/29/21 09:06 CARLOS 09/29/21 09:01 Wound Center Nurse 1 #12 Medial Superior LLE -Combined with other wound No -Current Size (cm) - Length 1.8 -Current Size (cm) - Width 1.8 -Current Size (cm) - Depth 0.1 -Total Square Cm 3.24 -Photo Taken No -Epithelialization Small 1-33% -Tunneling No -Undermining/Tunneling No -Circular Undermining No -Exudate Amt Medium -Exudate Type Serosanguineous -Wound Margin Flat & Intact -Granulation Amt Medium (34-66%) -Granulation Quality Red -Slough/Fibrin Yes -Necrosis Amt Medium (34-66%) -Necrotic Tissue Type Adherent Slough -Structure Exposed N/A -Texture (Ara-wound Skin Appearance) Assessed, Localized Edema -Moisture (Ara-wound Skin Appearance) Assessed,Dry/ Scaly -Color (Ara-wound Skin Appearance) Assessed, Hemosiderin Staining -Temperature (Ara-wound Skin No Abnormality Appearance) (Pt Warm) -Tenderness on Palpation (Ara-wound No Skin Appearance) -Ulcer Cleansing Soap and Water -Anesthetic Used 4% Lidocaine Solution #11 Medial Inferior LLE -Combined with other wound No -Current Size (cm) - Length 2.9 -Current Size (cm) - Width 4.8 -Current Size (cm) - Depth 0.2 -Total Square Cm 13.92 -Photo Taken No -Epithelialization Small 1-33% -Undermining/Tunneling No -Circular Undermining No -Exudate Amt Medium -Exudate Type Serosanguineous -Wound Margin Flat & Intact -Granulation Amt Medium (34-66%) -Granulation Quality Red -Slough/Fibrin Yes -Necrosis Amt Medium (34-66%) -Necrotic Tissue Type Adherent Slough -Structure Exposed N/A -Texture (Ara-wound Skin Appearance) Assessed, Localized Edema -Moisture (Raa-wound Skin Appearance) Assessed,Dry/ Scaly -Color (Ara-wound Skin Appearance) Assessed, Hemosiderin Staining -Temperature (Ara-wound Skin No Abnormality Appearance) (Pt Warm) -Tenderness on Palpation (Ara-wound Yes Skin Appearance) -Ulcer Cleansing Soap and Water -Foul Odor after Cleansing No -Anesthetic Used 4% Lidocaine Solution #10 Left Medial Ankle -Combined with other wound No -Current Size (cm) - Length 4 -Current Size (cm) - Width 4 -Current Size (cm) - Depth 0.3 -Total Square Cm 16 -Photo Taken No -Epithelialization Small 1-33% -Tunneling No -Undermining/Tunneling No -Circular Undermining No -Exudate Amt Medium -Exudate Type Serosanguineous -Wound Margin Flat & Intact -Granulation Amt Medium (34-66%) -Granulation Quality Red -Slough/Fibrin Yes -Necrosis Amt Medium (34-66%) -Necrotic Tissue Type Adherent Slough -Structure Exposed N/A -Texture (Ara-wound Skin Appearance) Assessed, Localized Edema -Moisture (Ara-wound Skin Appearance) Assessed,Dry/ Scaly -Color (Ara-wound Skin Appearance) Assessed, Hemosiderin Staining -Temperature (Ara-wound Skin No Abnormality Appearance) (Pt Warm) -Tenderness on Palpation (Ara-wound No Skin Appearance) -Ulcer Cleansing Soap and Water -Anesthetic Used 4% Lidocaine Solution Lower Limb Edema Present Yes Left Calf (cm) 35.1 Left Ankle (cm) 24.1 WC - Nurse 2 - General Ulcer CM Notes Start: 09/29/21 08:59 Freq: Status: Active Protocol: Activity Type Activity Date Activity User E-Sign Co-Sign Detail Recorded Client Recorded Date Recorded By Document 09/29/21 09:20 MW [id number] 09/29/21 09:32 MW 09/29/21 09:20 Wound Center Nurse 2 #12 [facility] Superior LLE -Time 09:21 -Correct Patient Yes -Correct Side, Site, Position Yes -Correct Procedure Yes -Procedure Performed Yes -Type of Procedure Debridement -Clinical Debridement Subcutaneous -Tissue Removed Subcutaneous -Post Debridement (cm) - Length 1.8 -Post Debridement (cm) - Width 1.8 -Post Debridement (cm) - Depth 0.1 -Total Square (Post) (cm) 3.24 -Area of Debridement (cm) - Length 1.8 -Area of Debridement (cm) - Width 1.8 -Total Square (Area) (cm) 3.24 -Tunneling No -Undermining/Tunneling No -Circular Undermining No -Wound/Ulcer Outcome Not Healed -Ulcer Cleansing Rinsed/ Irrigated with Saline -Foul Odor after Cleansing No -Bioengineered Tissue No -Bleeding Controlled with Pressure -Offloading No -Treatment Response Procedure Tolerated Well -Debridement - Subq, 1st 20sq cm Yes -Debridement, SubQ, ea addt'l 20sq cm 2 or part thereof #11 Medial Inferior LLE -Time 09:21 -Correct Patient Yes -Correct Side, Site, Position Yes -Correct Procedure Yes -Procedure Performed Yes -Type of Procedure Debridement -Clinical Debridement Subcutaneous -Tissue Removed Subcutaneous -Post Debridement (cm) - Length 3.5 -Post Debridement (cm) - Width 5.0 -Post Debridement (cm) - Depth 0.1 -Total Square (Post) (cm) 17.50 -Area of Debridement (cm) - Length 3.5 -Area of Debridement (cm) - Width 5.0 -Total Square (Area) (cm) 17.50 -Tunneling No -Undermining/Tunneling No -Wound/Ulcer Outcome Not Healed -Ulcer Cleansing Rinsed/ Irrigated with Saline -Foul Odor after Cleansing No -Bioengineered Tissue No -Bleeding Controlled with Pressure -Offloading No -Treatment Response Procedure Tolerated Well -Debridement - Subq, 1st 20sq cm No #10 Left Medial Ankle -Time 09:21 -Correct Patient Yes -Correct Side, Site, Position Yes -Correct Procedure Yes -Procedure Performed Yes -Type of Procedure Debridement -Clinical Debridement Subcutaneous -Tissue Removed Subcutaneous -Post Debridement (cm) - Length 4.5 -Post Debridement (cm) - Width 4.3 -Post Debridement (cm) - Depth 0.2 -Total Square (Post) (cm) 19.35 -Area of Debridement (cm) - Length 4.5 -Area of Debridement (cm) - Width 4.3 -Total Square (Area) (cm) 19.35 -Tunneling No -Undermining/Tunneling No -Circular Undermining No -Wound/Ulcer Outcome Not Healed -Ulcer Cleansing Rinsed/ Irrigated with Saline -Foul Odor after Cleansing No -Bioengineered Tissue No -Bleeding Controlled with Pressure -Offloading No -Treatment Response Procedure Tolerated Well -Debridement - Subq, 1st 20sq cm No Pain Scale: 0-10 Numeric Is Patient Pain Free? Yes WC - Nurse 3 - General Ulcer D/C NN Start: 09/29/21 08:59 Freq: Status: Active Protocol: Activity Type Activity Date Activity User E-Sign Co-Sign Detail Recorded Client Recorded Date Recorded By Document 09/29/21 10:00 ALFONSO [id number] 09/29/21 10:02 ALFONSO 09/29/21 10:00 Wound Care Nurse 3 #12 Medial Superior LLE -Ulcer Cleansing Rinsed/ Irrigated with Saline -Foul Odor after Cleansing No -Negative Pressure Wound Therapy N/A -Primary Dressing Applied Aquacel AG 4x4 -Other Dressing kerlix ABD -Primary Dressing Covered/Secured with Dry Gauze, Secured with Tape -Aquacel AG 4x4 1 #11 Medial Inferior LLE -Ulcer Cleansing Rinsed/ Irrigated with Saline -Foul Odor after Cleansing No -Negative Pressure Wound Therapy N/A -Primary Dressing Applied Aquacel AG 4x4 -Aquacel AG 4x4 0 #10 Left Medial Ankle -Ulcer Cleansing Rinsed/ Irrigated with Saline -Primary Dressing Applied Aquacel AG 4x4 -Aquacel AG 4x4 0 Additional Wound Wound debrided: Left Lower Extremity ( Inferior ) Type of Debridement: Excisional debridement Anesthesia Used: 4% Lidocaine Solution Depth: Down to and including healthy tissue and in the subcutaneous layer Percentage of wound debrided: 100 Instrument Used: 5mm curette Tissue Removed: Slough and devitalized tissue Severity: Fat Layer Exposed Amount of bleeding with debridement: Mild Bleeding Controlled with: Pressure Patient tolerated procedure: Patient tolerated procedure well Additional Wound Wound debrided: Left Lower Extremity ( Superior ) Type of Debridement: Excisional debridement Anesthesia Used: 4% Lidocaine Solution Depth: Down to and including healthy tissue and in the subcutaneous layer Percentage of wound debrided: 100 Instrument Used: 5mm curette Tissue Removed: Slough and devitalized tissue Severity: Fat Layer Exposed Amount of bleeding with debridement: Mild Bleeding Controlled with: Pressure Patient tolerated procedure: Patient tolerated procedure well Assessment/Plan Assessment/Plan (1) Ulcer of left lower extremity with fat layer exposed: CODE(S): L97.922 - Non-pressure chronic ulcer of unspecified part of left lower leg with fat layer exposed (2) PVD (peripheral vascular disease): CODE(S): I73.9 - Peripheral vascular disease, unspecified (3) Chronic venous insufficiency: CODE(S): I87.2 - Venous insufficiency (chronic) (peripheral) (4) Delayed wound healing: CODE(S): T14.8XXD - Other injury of unspecified body region, subsequent encounter PLAN: Debridement done as documented above, procedure was well-tolerated. Stable this week. No new concerns. Continue Aquacel silver and care max care to all ulcers, change daily to twice daily depending on drainage. Continue use of compression stockings, leg elevation and exercise. Increased protein intake, protein supplements, zinc and vitamin C also recommended. Continue doxycycline for antibiotic prophylaxis due to MRSA colonization. We discussed another visit with Vascular surgery for review. last seen about a year ago. He states that he will get it set up. His questions were answered and was advised to call with any further questions or concerns. Follow-up in 2 weeks. This note was generated with [employer] dictation software. It may contain incorrect words, spelling, and punctuation that were not noted in checking the note before signing.
[2021-10-13 09:06] VITALS: BP 157/91; PULSE 95; RESP 16; TEMP 36.4; BMI 31.4
--- NOTE | 2021-10-13 09:49 | PCM.WC.PN ---
History of Present Illness Date of Service: 10/13/21 Chief Complaint: ulcers to the left lower leg History of Wound: This is a 54-year-old male presents to wound healing center with a long-standing history of chronic venous insufficiency, chronic venous hypertension, lower extremity edema, lower extremity pain, and chronic left lower extremity ulcer. The patient has previously undergone endovenous laser ablation of the left and right great saphenous vein, the small saphenous vein, the left accessory saphenous vein, and an incompetent left calf profile grinder vein located 15 cm proximal to the left medial malleolus. He is currently wearing graduated compression stockings which are documented to be 20-30 mmHg compression and these are thigh high. He reports great compliance with use. He is also had previous arterial work-up with no intervention recommended by letter, his vascular surgeon. He denies taking nutritional supplementation. He saw dermatology and had a biopsy of the ulcer site. He also was previously treated by infectious disease for various contaminations and infections. He is not antibiotics at this time nor does he have any redness or odor coming from the wound. He denies fever, chill, nausea, vomiting, loss of appetite. Progress of Wound: Over all stable. No new concerns at this time. Subjective Subjective No new concerns at this time. Objective Data Objective Data Vital Signs: Vital Signs Temp Pulse Resp BP Pulse Ox 97.6 F L 95 16 157/91 H 99 10/13/21 09:06 10/13/21 09:06 10/13/21 09:06 10/13/21 09:06 09/28/21 00:23 Body Mass Index (BMI) 31.4 Charges/Coding Procedures Integumentary 111xxx-113xx: 21061 Lakeisha subq tissue 20 sq cm/< Add On Codes: 88348 Lakeisha subq tissue add-on Physical Exam Const alert, oriented x3 and no apparent distress General Appearance: cooperative and comfortable Orientation / Consciousness: awake HEENT normocephalic Head and Scalp: normal to inspection, normocephalic and atraumatic Face and Sinus: normal facial exam Eyes EOMs intact bilaterally Neck full ROM and supple General: normal visual inspection Resp normal respiratory effort Effort and Inspection: able to speak in complete sentences GI non-tender Extremity normal to inspection General Extremity: edema Skin Wounds: wounds noted Neuro oriented x3 and CN's II-XII intact bilaterally Psych mental status grossly normal Appearance: grossly normal Debridement Note Debridement Note Wound debrided: Left Medial Ankle Type of Debridement: Excisional debridement Anesthesia Used: 4% Lidocaine Solution Depth: Down to and including healthy tissue and in the subcutaneous layer Percentage of wound debrided: 100 Instrument Used: 5mm curette Tissue Removed: Slough and devitalized tissue Severity: Fat Layer Exposed Amount of bleeding with debridement: Mild Bleeding Controlled with: Pressure Patient tolerated procedure: Patient tolerated procedure well Post-Debridement Measurements and Additional Note: Post-Debridement Measurements/Treatment - Nurse 1 - General Ulcer Assessment Start: 09/29/21 08:59 Freq: Status: Active Protocol: KIMBERLY.LOWEXT Activity Type Activity Date Activity User E-Sign Co-Sign Detail Recorded Client Recorded Date Recorded By Document 09/29/21 09:01 CARLOS [id number] 09/29/21 09:06 Document 10/13/21 09:06 [id number] 10/13/21 09:11 09/29/21 10/13/21 09:01 09:06 - Today's Visit Information Type of service Follow-up Visit Follow-up Visit (Physician/ADOBE MAKER (Physician/ADOBE MAKER ) ) Arrival Mode Ambulatory Ambulatory Patient Identification Verified (Name & Yes Yes ) Patient Requires Transmission-Based No No Precautions Height and Weight Body Mass Index (BMI) 31.4 31.4 BMI Classification Obese Obese Vital Signs Temperature (97.8 F-99.1 F) 97.6 F L 97.6 F L Temperature Source Temporal Temporal Pulse Rate (60-100) 99 95 Pulse Location Monitor Monitor Respiratory Rate (12-18) 16 16 Respiratory rate source Observation Observation Blood Pressure (90/60-120/80) 154/84 H 157/91 H Blood Pressure Mean (mm Hg) 107 113 Source Monitor Monitor Position Semi-Fowlers Semi-Fowlers Blood Pressure Location Left Arm Left Arm History Since Last Visit- (Skip if this is Patient's initial visit) Have you changed medications since your No No last visit? Any new allergies or adverse reactions No No Had a fall/change in ADL's that may No No increase risk of falls Signs or symptoms of abuse and/or No No neglect since last visit Have you been in the hospital since your No No last visit? Has dressing in place as prescribed Yes Yes Has compression in place as prescribed Yes Yes Has offloadiing in place as prescribed N/A N/A Experienced any changes in pain level or No No management Left Footwear Regular Shoe Regular Shoe Right Footwear Regular Shoe Regular Shoe Pain Scale: 0-10 Numeric Is Patient Pain Free? Yes Yes - Nurse 1 - General Ulcer Measurement Start: 09/29/21 08:59 Freq: Status: Active Protocol: Activity Type Activity Date Activity User E-Sign Co-Sign Detail Recorded Client Recorded Date Recorded By Document 09/29/21 09:01 [id number] 09/29/21 09:06 Document 10/13/21 09:06 [id number] 10/13/21 09:11 09/29/21 10/13/21 09:01 09:06 Wound Center Nurse 1 #12 Medial Superior LLE -Combined with other wound No No -Current Size (cm) - Length 1.8 1.8 -Current Size (cm) - Width 1.8 1.7 -Current Size (cm) - Depth 0.1 0.1 -Total Square Cm 3.24 3.06 -Photo Taken No No -Epithelialization Small 1-33% Medium 34-66% -Tunneling No No -Undermining/Tunneling No No -Circular Undermining No No -Exudate Amt Medium Medium -Exudate Type Serosanguineous Serosanguineous -Wound Margin Flat & Intact Flat & Intact -Granulation Amt Medium (34-66%) Medium (34-66%) -Granulation Quality Red Red -Slough/Fibrin Yes Yes -Necrosis Amt Medium (34-66%) Medium (34-66%) -Necrotic Tissue Type Adherent Slough Adherent Slough -Structure Exposed N/A N/A -Texture (Ara-wound Skin Appearance) Assessed, Assessed, Localized Edema Localized Edema -Moisture (Ara-wound Skin Appearance) Assessed,Dry/ Assessed,Dry/ Scaly Scaly -Color (Ara-wound Skin Appearance) Assessed, Assessed, Hemosiderin Hemosiderin Staining Staining -Temperature (Ara-wound Skin No Abnormality No Abnormality Appearance) (Pt Warm) (Pt Warm) -Tenderness on Palpation (Ara-wound No No Skin Appearance) -Ulcer Cleansing Soap and Water Rinsed/ Irrigated with Saline -Foul Odor after Cleansing No -Anesthetic Used 4% Lidocaine 4% Lidocaine Solution Solution #11 Medial Inferior LLE -Combined with other wound No No -Current Size (cm) - Length 2.9 4 -Current Size (cm) - Width 4.8 5 -Current Size (cm) - Depth 0.2 0.2 -Total Square Cm 13.92 20 -Photo Taken No No -Epithelialization Small 1-33% Medium 34-66% -Tunneling No -Undermining/Tunneling No No -Circular Undermining No No -Exudate Amt Medium Medium -Exudate Type Serosanguineous Serosanguineous -Wound Margin Flat & Intact Flat & Intact -Granulation Amt Medium (34-66%) Medium (34-66%) -Granulation Quality Red Red -Slough/Fibrin Yes Yes -Necrosis Amt Medium (34-66%) Medium (34-66%) -Necrotic Tissue Type Adherent Slough Adherent Slough -Structure Exposed N/A N/A -Texture (Ara-wound Skin Appearance) Assessed, Assessed, Localized Edema Localized Edema -Moisture (Ara-wound Skin Appearance) Assessed,Dry/ Assessed,Dry/ Scaly Scaly -Color (Ara-wound Skin Appearance) Assessed, Assessed, Hemosiderin Hemosiderin Staining Staining -Temperature (Ara-wound Skin No Abnormality No Abnormality Appearance) (Pt Warm) (Pt Warm) -Tenderness on Palpation (Ara-wound Yes No Skin Appearance) -Ulcer Cleansing Soap and Water Rinsed/ Irrigated with Saline -Foul Odor after Cleansing No No -Anesthetic Used 4% Lidocaine 4% Lidocaine Solution Solution #10 Left Medial Ankle -Combined with other wound No No -Current Size (cm) - Length 4 5.3 -Current Size (cm) - Width 4 4.3 -Current Size (cm) - Depth 0.3 0.2 -Total Square Cm 16 22.79 -Photo Taken No No -Epithelialization Small 1-33% None Present -Tunneling No No -Undermining/Tunneling No No -Circular Undermining No No -Exudate Amt Medium Medium -Exudate Type Serosanguineous Serosanguineous -Wound Margin Flat & Intact Flat & Intact -Granulation Amt Medium (34-66%) Medium (34-66%) -Granulation Quality Red Red -Slough/Fibrin Yes Yes -Necrosis Amt Medium (34-66%) Medium (34-66%) -Necrotic Tissue Type Adherent Slough Adherent Slough -Structure Exposed N/A N/A -Texture (Ara-wound Skin Appearance) Assessed, Assessed, Localized Edema Localized Edema -Moisture (Ara-wound Skin Appearance) Assessed,Dry/ Assessed,Dry/ Scaly Scaly -Color (Ara-wound Skin Appearance) Assessed, Assessed, Hemosiderin Hemosiderin Staining Staining -Temperature (Ara-wound Skin No Abnormality No Abnormality Appearance) (Pt Warm) (Pt Warm) -Tenderness on Palpation (Ara-wound No No Skin Appearance) -Ulcer Cleansing Soap and Water Rinsed/ Irrigated with Saline -Foul Odor after Cleansing No -Anesthetic Used 4% Lidocaine 4% Lidocaine Solution Solution Lower Limb Edema Present Yes Yes Left Calf (cm) 35.1 34 Left Ankle (cm) 24.1 22.8 WC - Nurse 2 - General Ulcer CM Notes Start: 09/29/21 08:59 Freq: Status: Active Protocol: Activity Type Activity Date Activity User E-Sign Co-Sign Detail Recorded Client Recorded Date Recorded By Document 09/29/21 09:20 MW [id number] 09/29/21 09:32 MW Document 10/13/21 09:24 MW [id number] 10/13/21 09:34 MW Edit Result 10/13/21 09:24 MW (1) [id number] 10/13/21 09:35 MW (1) #12 Medial Superior LLE - Debridement, SubQ, ea addt'l 20sq cm 1 => 2 or part thereof 09/29/21 10/13/21 09:20 09:24 Wound Center Nurse 2 #12 Medial Superior LLE -Time 09: 09:25 -Correct Patient Yes Yes -Correct Side, Site, Position Yes Yes -Correct Procedure Yes Yes -Procedure Performed Yes Yes -Type of Procedure Debridement Debridement -Clinical Debridement Subcutaneous Subcutaneous -Tissue Removed Subcutaneous Subcutaneous -Post Debridement (cm) - Length 1.8 1.8 -Post Debridement (cm) - Width 1.8 1.6 -Post Debridement (cm) - Depth 0.1 0.2 -Total Square (Post) (cm) 3.24 2.88 -Area of Debridement (cm) - Length 1.8 1.8 -Area of Debridement (cm) - Width 1.8 1.6 -Total Square (Area) (cm) 3.24 2.88 -Tunneling No No -Undermining/Tunneling No No -Circular Undermining No No -Wound/Ulcer Outcome Not Healed Not Healed -Ulcer Cleansing Rinsed/ Rinsed/ Irrigated with Irrigated with Saline Saline -Foul Odor after Cleansing No No -Bioengineered Tissue No No -Bleeding Controlled with Pressure Pressure -Offloading No No -Treatment Response Procedure Procedure Tolerated Well Tolerated Well -Debridement - Subq, 1st 20sq cm Yes Yes -Debridement, SubQ, ea addt'l 20sq cm 2 2 or part thereof #11 Medial Inferior LLE -Time 09:21 09:25 -Correct Patient Yes Yes -Correct Side, Site, Position Yes Yes -Correct Procedure Yes Yes -Procedure Performed Yes Yes -Type of Procedure Debridement Debridement -Clinical Debridement Subcutaneous Subcutaneous -Tissue Removed Subcutaneous Subcutaneous -Post Debridement (cm) - Length 3.5 3.8 -Post Debridement (cm) - Width 5.0 5.4 -Post Debridement (cm) - Depth 0.1 0.1 -Total Square (Post) (cm) 17.50 20.52 -Area of Debridement (cm) - Length 3.5 3.8 -Area of Debridement (cm) - Width 5.0 5.4 -Total Square (Area) (cm) 17.50 20.52 -Tunneling No No -Undermining/Tunneling No No -Circular Undermining No -Wound/Ulcer Outcome Not Healed Not Healed -Ulcer Cleansing Rinsed/ Rinsed/ Irrigated with Irrigated with Saline Saline -Foul Odor after Cleansing No No -Bioengineered Tissue No No -Bleeding Controlled with Pressure Pressure -Offloading No No -Treatment Response Procedure Procedure Tolerated Well Tolerated Well -Debridement - Subq, 1st 20sq cm No No #10 Left Medial Ankle -Time 09:21 09:25 -Correct Patient Yes Yes -Correct Side, Site, Position Yes Yes -Correct Procedure Yes Yes -Procedure Performed Yes Yes -Type of Procedure Debridement Debridement -Clinical Debridement Subcutaneous Subcutaneous -Tissue Removed Subcutaneous Subcutaneous -Post Debridement (cm) - Length 4.5 4.5 -Post Debridement (cm) - Width 4.3 4.2 -Post Debridement (cm) - Depth 0.2 0.1 -Total Square (Post) (cm) 19.35 18.90 -Area of Debridement (cm) - Length 4.5 4.5 -Area of Debridement (cm) - Width 4.3 4.2 -Total Square (Area) (cm) 19.35 18.90 -Tunneling No No -Undermining/Tunneling No No -Circular Undermining No No -Wound/Ulcer Outcome Not Healed Not Healed -Ulcer Cleansing Rinsed/ Rinsed/ Irrigated with Irrigated with Saline Saline -Foul Odor after Cleansing No No -Bioengineered Tissue No No -Bleeding Controlled with Pressure Pressure -Offloading No No -Treatment Response Procedure Procedure Tolerated Well Tolerated Well -Debridement - Subq, 1st 20sq cm No No Pain Scale: 0-10 Numeric Is Patient Pain Free? Yes Yes WC - Nurse 3 - General Ulcer D/C NN Start: 09/29/21 08:59 Freq: Status: Active Protocol: Activity Type Activity Date Activity User E-Sign Co-Sign Detail Recorded Client Recorded Date Recorded By Document 09/29/21 10:00 ALFONSO [id number] 09/29/21 10:02 ALFONSO 09/29/21 10:00 Wound Care Nurse 3 #12 Medial Superior LLE -Ulcer Cleansing Rinsed/ Irrigated with Saline -Foul Odor after Cleansing No -Negative Pressure Wound Therapy N/A -Primary Dressing Applied Aquacel AG 4x4 -Other Dressing kerlix ABD -Primary Dressing Covered/Secured with Dry Gauze, Secured with Tape -Aquacel AG 4x4 1 #11 Medial Inferior LLE -Ulcer Cleansing Rinsed/ Irrigated with Saline -Foul Odor after Cleansing No -Negative Pressure Wound Therapy N/A -Primary Dressing Applied Aquacel AG 4x4 -Aquacel AG 4x4 0 #10 Left Medial Ankle -Ulcer Cleansing Rinsed/ Irrigated with Saline -Primary Dressing Applied Aquacel AG 4x4 -Aquacel AG 4x4 0 Additional Wound Wound debrided: Left Lower EXtremity ( Inferior ) Type of Debridement: Excisional debridement Anesthesia Used: 4% Lidocaine Solution Depth: Down to and including healthy tissue and in the subcutaneous layer Percentage of wound debrided: 100 Instrument Used: 5mm curette Tissue Removed: Slough and devitalized tissue Severity: Fat Layer Exposed Amount of bleeding with debridement: Mild Bleeding Controlled with: Pressure Patient tolerated procedure: Patient tolerated procedure well Additional Wound Wound debrided: Left Lower Extremity ( Superior ) Type of Debridement: Excisional debridement Anesthesia Used: 4% Lidocaine Solution Depth: Down to and including healthy tissue and in the subcutaneous layer Percentage of wound debrided: 100 Instrument Used: 5mm curette Tissue Removed: Slough and devitalized tissue Severity: Fat Layer Exposed Amount of bleeding with debridement: Mild Bleeding Controlled with: Pressure Patient tolerated procedure: Patient tolerated procedure well Assessment/Plan Assessment/Plan (1) Ulcer of left lower extremity with fat layer exposed: CODE(S): L97.922 - Non-pressure chronic ulcer of unspecified part of left lower leg with fat layer exposed (2) PVD (peripheral vascular disease): CODE(S): I73.9 - Peripheral vascular disease, unspecified (3) Chronic venous insufficiency: CODE(S): I87.2 - Venous insufficiency (chronic) (peripheral) (4) Delayed wound healing: CODE(S): T14.8XXD - Other injury of unspecified body region, subsequent encounter PLAN: Debridement done as documented above, procedure was well-tolerated. Stable this week. No new concerns. Continue Aquacel silver and care max care to all ulcers, change daily to twice daily depending on drainage. Continue use of compression stockings, leg elevation and exercise. Increased protein intake, protein supplements, zinc and vitamin C also recommended. Continue doxycycline for antibiotic prophylaxis due to MRSA colonization. We discussed another visit with Vascular surgery for review. last seen about a year ago. He states that he will get it set up. His questions were answered and was advised to call with any further questions or concerns. Follow-up in 2 weeks. This note was generated with [employer] dictation software. It may contain incorrect words, spelling, and punctuation that were not noted in checking the note before signing.
[2021-10-27 09:02] VITALS: BP 141/89; PULSE 93; RESP 16; TEMP 36.2; BMI 31.4
--- NOTE | 2021-10-27 10:03 | PN.PCM_ITS ---
History of Present Illness Date of Service: 10/27/21 Chief Complaint: ulcers to the left lower leg History of Wound: This is a 54-year-old male presents to wound healing center with a long-standing history of chronic venous insufficiency, chronic venous hypertension, lower extremity edema, lower extremity pain, and chronic left lower extremity ulcer. The patient has previously undergone endovenous laser ablation of the left and right great saphenous vein, the small saphenous vein, the left accessory saphenous vein, and an incompetent left calf turn down attendant vein located 15 cm proximal to the left medial malleolus. He is currently wearing graduated compression stockings which are documented to be 20-30 mmHg compression and these are thigh high. He reports great compliance with use. He is also had previous arterial work-up with no intervention recommended by letter, his vascular surgeon. He denies taking nutritional supplementation. He saw dermatology and had a biopsy of the ulcer site. He also was previously treated by infectious disease for various contaminations and infections. He is not antibiotics at this time nor does he have any redness or odor coming from the wound. He denies fever, chill, nausea, vomiting, loss of appetite. Progress of Wound: Stable overall. Not doing daily wound dressings as recommended. Subjective Subjective He reports mild foul smell from the wound. Objective Data Objective Data Vital Signs: Vital Signs Temp Pulse Resp BP Pulse Ox 97.1 F L 93 16 141/89 H 99 10/27/21 09:02 10/27/21 09:02 10/27/21 09:02 10/27/21 09:02 09/28/21 00:23 Body Mass Index (BMI) 31.4 Charges/Coding Procedures Integumentary 111xxx-113xx: 92465 Lakeisha subq tissue 20 sq cm/< Add On Codes: 45485 Lakeisha subq tissue add-on Physical Exam Const alert, oriented x3 and no apparent distress General Appearance: cooperative and comfortable Orientation / Consciousness: awake HEENT normocephalic Head and Scalp: normal to inspection, normocephalic and atraumatic Face and Sinus: normal facial exam Eyes EOMs intact bilaterally Neck full ROM and supple General: normal visual inspection Resp normal respiratory effort Effort and Inspection: able to speak in complete sentences GI non-tender Extremity normal to inspection General Extremity: edema Skin Wounds: wounds noted Neuro oriented x3 and CN's II-XII intact bilaterally Psych mental status grossly normal Appearance: grossly normal Debridement Note Debridement Note Wound debrided: Left Medial Ankle Type of Debridement: Excisional debridement Anesthesia Used: 4% Lidocaine Solution Depth: Down to and including healthy tissue Percentage of wound debrided: 100 Instrument Used: 5mm curette Tissue Removed: Slough and devitalized tissue Severity: Fat Layer Exposed Amount of bleeding with debridement: Mild Bleeding Controlled with: Pressure Patient tolerated procedure: Patient tolerated procedure well Post-Debridement Measurements and Additional Note: Post-Debridement Measurem ents/Treatment - Nurse 1 - General Ulcer Assessment Start: 09/29/21 08:59 Freq: Status: Active Protocol: [employer] Activity Type Activity Date Activity User E-Sign Co-Sign Detail Recorded Client Recorded Date Recorded By Document 09/29/21 09:01 [id number] 09/29/21 09:06 Document 10/13/21 09:06 [id number] 10/13/21 09:11 Document 10/27/21 09:02 [id number] 10/27/21 09:10 09/29/21 10/13/21 10/27/21 09:01 09:06 09:02 - Today's Visit Information Type of service Follow-up Visit Follow-up Visit Follow-up Visit (Physician/FIELD LABORATORY OPERATOR (Physician/FIELD LABORATORY OPERATOR (Physician/FIELD LABORATORY OPERATOR ) ) ) Arrival Mode Ambulatory Ambulatory Cane Patient Identification Verified (Name & Yes Yes No ) Patient Requires Transmission-Based No No Precautions Height and Weight Body Mass Index (BMI) 31.4 31.4 31.4 BMI Classification Obese Obese Obese Vital Signs Temperature (97.8 F-99.1 F) 97.6 F L 97.6 F L 97.1 F L Temperature Source Temporal Temporal Temporal Pulse Rate (60-100) 99 95 93 Pulse Location Monitor Monitor Monitor Respiratory Rate (12-18) 16 16 16 Respiratory rate source Observation Observation Observation Blood Pressure (90/60-120/80) 154/84 H 157/91 H 141/89 H Blood Pressure Mean (mm Hg) 107 113 106 Source Monitor Monitor Monitor Position Semi-Fowlers Semi-Fowlers Semi-Fowlers Blood Pressure Location Left Arm Left Arm Left Arm History Since Last Visit- (Skip if this is Patient's initial visit) Have you changed medications since your No No No last visit? Any new allergies or adverse reactions No No No Had a fall/change in ADL's that may No No No increase risk of falls Signs or symptoms of abuse and/or No No No neglect since last visit Have you been in the hospital since your No No No last visit? Has dressing in place as prescribed Yes Yes Yes Has compression in place as prescribed Yes Yes Yes Has offloadiing in place as prescribed N/A N/A N/A Experienced any changes in pain level or No No No management Left Footwear Regular Shoe Regular Shoe Regular Shoe Right Footwear Regular Shoe Regular Shoe Regular Shoe Pain Scale: 0-10 Numeric Is Patient Pain Free? Yes Yes Yes - Nurse 1 - General Ulcer Measurement Start: 09/29/21 08:59 Freq: Status: Active Protocol: Activity Type Activity Date Activity User E-Sign Co-Sign Detail Recorded Client Recorded Date Recorded By Document 09/29/21 09:01 [id number] 09/29/21 09:06 Document 10/13/21 09:06 [id number] 10/13/21 09:11 Document 10/27/21 09:02 [id number] 10/27/21 09:10 09/29/21 10/13/21 10/27/21 09:01 09:06 09:02 Wound Center Nurse 1 #12 Medial Superior LLE -Combined with other wound No No -Current Size (cm) - Length 1.8 1.8 1.7 -Current Size (cm) - Width 1.8 1.7 1.6 -Current Size (cm) - Depth 0.1 0.1 0.1 -Total Square Cm 3.24 3.06 2.72 -Photo Taken No No No -Epithelialization Small 1-33% Medium 34-66% -Tunneling No No -Undermining/Tunneling No No -Circular Undermining No No -Exudate Amt Medium Medium Medium -Exudate Type Serosanguineous Serosanguineous Sanguineous -Wound Margin Flat & Intact Flat & Intact Thickened -Granulation Amt Medium (34-66%) Medium (34-66%) Medium (34-66%) -Granulation Quality Red Red Red -Slough/Fibrin Yes Yes -Necrosis Amt Medium (34-66%) Medium (34-66%) Medium (34-66%) -Necrotic Tissue Type Adherent Slough Adherent Slough Adherent Slough -Structure Exposed N/A N/A N/A -Texture (Ara-wound Skin Appearance) Assessed, Assessed, Scarring Localized Edema Localized Edema -Moisture (Ara-wound Skin Appearance) Assessed,Dry/ Assessed,Dry/ Dry/Scaly Scaly Scaly -Color (Ara-wound Skin Appearance) Assessed, Assessed, Hemosiderin Hemosiderin Hemosiderin Staining Staining Staining -Temperature (Ara-wound Skin No Abnormality No Abnormality No Abnormality Appearance) (Pt Warm) (Pt Warm) (Pt Warm) -Tenderness on Palpation (Ara-wound No No No Skin Appearance) -Ulcer Cleansing Soap and Water Rinsed/ Soap and Water Irrigated with Saline -Foul Odor after Cleansing No No -Anesthetic Used 4% Lidocaine 4% Lidocaine 4% Lidocaine Solution Solution Solution #11 Medial Inferior LLE -Combined with other wound No No -Current Size (cm) - Length 2.9 4 4.5 -Current Size (cm) - Width 4.8 5 5 -Current Size (cm) - Depth 0.2 0.2 0.1 -Total Square Cm 13.92 20 22.5 -Photo Taken No No No -Epithelialization Small 1-33% Medium 34-66% -Tunneling No -Undermining/Tunneling No No -Circular Undermining No No -Exudate Amt Medium Medium Medium -Exudate Type Serosanguineous Serosanguineous -Wound Margin Flat & Intact Flat & Intact Thickened & Rolled Under -Granulation Amt Medium (34-66%) Medium (34-66%) Medium (34-66%) -Granulation Quality Red Red -Slough/Fibrin Yes Yes -Necrosis Amt Medium (34-66%) Medium (34-66%) Medium (34-66%) -Necrotic Tissue Type Adherent Slough Adherent Slough Eschar -Structure Exposed N/A N/A N/A -Texture (Ara-wound Skin Appearance) Assessed, Assessed, Localized Edema Localized Edema -Moisture (Ara-wound Skin Appearance) Assessed,Dry/ Assessed,Dry/ Dry/Scaly Scaly Scaly -Color (Ara-wound Skin Appearance) Assessed, Assessed, Hemosiderin Hemosiderin Hemosiderin Staining Staining Staining -Temperature (Ara-wound Skin No Abnormality No Abnormality No Abnormality Appearance) (Pt Warm) (Pt Warm) (Pt Warm) -Tenderness on Palpation (Ara-wound Yes No No Skin Appearance) -Ulcer Cleansing Soap and Water Rinsed/ Soap and Water Irrigated with Saline -Foul Odor after Cleansing No No No -Anesthetic Used 4% Lidocaine 4% Lidocaine 4% Lidocaine Solution Solution Solution #10 Left Medial Ankle -Combined with other wound No No -Current Size (cm) - Length 4 5.3 5.3 -Current Size (cm) - Width 4 4.3 4.4 -Current Size (cm) - Depth 0.3 0.2 0.3 -Total Square Cm 16 22.79 23.32 -Photo Taken No No -Epithelialization Small 1-33% None Present -Tunneling No No -Undermining/Tunneling No No -Circular Undermining No No -Exudate Amt Medium Medium Medium -Exudate Type Serosanguineous Serosanguineous Serosanguineous -Wound Margin Flat & Intact Flat & Intact Thickened & Rolled Under -Granulation Amt Medium (34-66%) Medium (34-66%) Large (67-100%) -Granulation Quality Red Red Red -Slough/Fibrin Yes Yes -Necrosis Amt Medium (34-66%) Medium (34-66%) Medium (34-66%) -Necrotic Tissue Type Adherent Slough Adherent Slough Eschar -Structure Exposed N/A N/A N/A -Texture (Ara-wound Skin Appearance) Assessed, Assessed, Scarring Localized Edema Localized Edema -Moisture (Ara-wound Skin Appearance) Assessed,Dry/ Assessed,Dry/ Dry/Scaly Scaly Scaly -Color (Ara-wound Skin Appearance) Assessed, Assessed, Mottled Hemosiderin Hemosiderin Staining Staining -Temperature (Ara-wound Skin No Abnormality No Abnormality No Abnormality Appearance) (Pt Warm) (Pt Warm) (Pt Warm) -Tenderness on Palpation (Ara-wound No No No Skin Appearance) -Ulcer Cleansing Soap and Water Rinsed/ Soap and Water Irrigated with Saline -Foul Odor after Cleansing No Yes -Anesthetic Used 4% Lidocaine 4% Lidocaine 4% Lidocaine Solution Solution Solution Lower Limb Edema Present Yes Yes Left Calf (cm) 35.1 34 35 Left Ankle (cm) 24.1 22.8 24.6 WC - Nurse 2 - General Ulcer CM Notes Start: 09/29/21 08:59 Freq: Status: Active Protocol: Activity Type Activity Date Activity User E-Sign Co-Sign Detail Recorded Client Recorded Date Recorded By Document 09/29/21 09:20 MW [id number] 09/29/21 09:32 MW Document 10/13/21 09:24 MW [id number] 10/13/21 09:34 MW Edit Result 10/13/21 09:24 MW (1) [id number] 10/13/21 09:35 MW Document 10/27/21 09:23 MW [id number] 10/27/21 09:32 MW (1) #12 Medial Superior LLE - Debridement, SubQ, ea addt'l 20sq cm 1 => 2 or part thereof 09/29/21 10/13/21 10/27/21 09:20 09:24 09:23 Wound Center Nurse 2 #12 Medial Superior LLE -Time : 09:25 09:24 -Correct Patient Yes Yes Yes -Correct Side, Site, Position Yes Yes Yes -Correct Procedure Yes Yes Yes -Procedure Performed Yes Yes Yes -Type of Procedure Debridement Debridement Debridement -Clinical Debridement Subcutaneous Subcutaneous Subcutaneous -Tissue Removed Subcutaneous Subcutaneous Subcutaneous -Post Debridement (cm) - Length 1.8 1.8 1.5 -Post Debridement (cm) - Width 1.8 1.6 1.6 -Post Debridement (cm) - Depth 0.1 0.2 0.1 -Total Square (Post) (cm) 3.24 2.88 2.40 -Area of Debridement (cm) - Length 1.8 1.8 1.5 -Area of Debridement (cm) - Width 1.8 1.6 1.6 -Total Square (Area) (cm) 3.24 2.88 2.40 -Tunneling No No No -Undermining/Tunneling No No No -Circular Undermining No No No -Wound/Ulcer Outcome Not Healed Not Healed Not Healed -Ulcer Cleansing Rinsed/ Rinsed/ Rinsed/ Irrigated with Irrigated with Irrigated with Saline Saline Saline -Foul Odor after Cleansing No No No -Bioengineered Tissue No No No -Bleeding Controlled with Pressure Pressure Pressure -Offloading No No No -Treatment Response Procedure Procedure Procedure Tolerated Well Tolerated Well Tolerated Well -Debridement - Subq, 1st 20sq cm Yes Yes Yes -Debridement, SubQ, ea addt'l 20sq cm 2 2 1 or part thereof #11 Medial Inferior LLE -Time 09: 09:25 09:24 -Correct Patient Yes Yes Yes -Correct Side, Site, Position Yes Yes Yes -Correct Procedure Yes Yes Yes -Procedure Performed Yes Yes Yes -Type of Procedure Debridement Debridement Debridement -Clinical Debridement Subcutaneous Subcutaneous Subcutaneous -Tissue Removed Subcutaneous Subcutaneous Subcutaneous -Post Debridement (cm) - Length 3.5 3.8 3.0 -Post Debridement (cm) - Width 5.0 5.4 5.0 -Post Debridement (cm) - Depth 0.1 0.1 0.1 -Total Square (Post) (cm) 17.50 20.52 15.00 -Area of Debridement (cm) - Length 3.5 3.8 3.0 -Area of Debridement (cm) - Width 5.0 5.4 5.0 -Total Square (Area) (cm) 17.50 20.52 15.00 -Tunneling No No No -Undermining/Tunneling No No No -Circular Undermining No No -Wound/Ulcer Outcome Not Healed Not Healed Not Healed -Ulcer Cleansing Rinsed/ Rinsed/ Rinsed/ Irrigated with Irrigated with Irrigated with Saline Saline Saline -Foul Odor after Cleansing No No No -Bioengineered Tissue No No No -Bleeding Controlled with Pressure Pressure Pressure -Offloading No No No -Treatment Response Procedure Procedure Procedure Tolerated Well Tolerated Well Tolerated Well -Debridement - Subq, 1st 20sq cm No No No #10 Left Medial Ankle -Time : 09:25 09:25 -Correct Patient Yes Yes Yes -Correct Side, Site, Position Yes Yes Yes -Correct Procedure Yes Yes Yes -Procedure Performed Yes Yes Yes -Type of Procedure Debridement Debridement Debridement -Clinical Debridement Subcutaneous Subcutaneous Subcutaneous -Tissue Removed Subcutaneous Subcutaneous Subcutaneous -Post Debridement (cm) - Length 4.5 4.5 4.7 -Post Debridement (cm) - Width 4.3 4.2 4.5 -Post Debridement (cm) - Depth 0.2 0.1 0.2 -Total Square (Post) (cm) 19.35 18.90 21.15 -Area of Debridement (cm) - Length 4.5 4.5 4.7 -Area of Debridement (cm) - Width 4.3 4.2 4.5 -Total Square (Area) (cm) 19.35 18.90 21.15 -Tunneling No No No -Undermining/Tunneling No No No -Circular Undermining No No No -Wound/Ulcer Outcome Not Healed Not Healed Not Healed -Ulcer Cleansing Rinsed/ Rinsed/ Rinsed/ Irrigated with Irrigated with Irrigated with Saline Saline Saline -Foul Odor after Cleansing No No No -Bioengineered Tissue No No No -Bleeding Controlled with Pressure Pressure Pressure -Offloading No No No -Treatment Response Procedure Procedure Procedure Tolerated Well Tolerated Well Tolerated Well -Debridement - Subq, 1st 20sq cm No No No Pain Scale: 0-10 Numeric Is Patient Pain Free? Yes Yes Yes WC - Nurse 3 - General Ulcer D/C NN Start: 09/29/21 08:59 Freq: Status: Active Protocol: Activity Type Activity Date Activity User E-Sign Co-Sign Detail Recorded Client Recorded Date Recorded By Document 09/29/21 10:00 MT [id number] 09/29/21 10:02 AK Document 10/13/21 11:14 AK [id number] 10/13/21 11:16 AK Document 10/27/21 09:36 MT [id number] 10/27/21 09:37 AK 09/29/21 10/13/21 10/27/21 10:00 11:14 09:36 Wound Care Nurse 3 #12 Medial Superior LLE -Ulcer Cleansing Rinsed/ Rinsed/ Rinsed/ Irrigated with Irrigated with Irrigated with Saline Saline Saline -Foul Odor after Cleansing No No No -Negative Pressure Wound Therapy N/A N/A N/A -Primary Dressing Applied Aquacel AG 4x4 Aquacel AG 4x4 Aquacel AG 4x4 -Other Dressing kerlix ABD ABD ABD -Primary Dressing Covered/Secured with Dry Gauze, Secured with Secured with Secured with Tape Tape Tape -Aquacel AG 4x4 1 1 1 #11 Medial Inferior LLE -Ulcer Cleansing Rinsed/ Rinsed/ Rinsed/ Irrigated with Irrigated with Irrigated with Saline Saline Saline -Foul Odor after Cleansing No No No -Negative Pressure Wound Therapy N/A N/A N/A -Primary Dressing Applied Aquacel AG 4x4 Aquacel AG 4x4 Aquacel AG 4x4 -Other Dressing Keramax -Primary Dressing Covered/Secured with Secured with Tape -Aquacel AG 4x4 0 0 0 #10 Left Medial Ankle -Ulcer Cleansing Rinsed/ Rinsed/ Rinsed/ Irrigated with Irrigated with Irrigated with Saline Saline Saline -Foul Odor after Cleansing No No -Negative Pressure Wound Therapy N/A N/A -Primary Dressing Applied Aquacel AG 4x4 Aquacel AG 4x4 Aquacel AG 4x4 -Other Dressing absorber Keramax -Primary Dressing Covered/Secured with Secured with Secured with Tape Tape -Aquacel AG 4x4 0 0 0 WC - Visit Discharge Discharge Condition Stable Stable Ambulatory Status Ambulatory Ambulatory Transportation Private Auto Private Auto Medication Reconcilliation completed & No No provided to patient/care provider Clinical Summary of Care Provided Yes Yes Additional Wound Wound debrided: Left Lower extremity ( Inferior ) Type of Debridement: Excisional debridement Anesthesia Used: 4% Lidocaine Solution Depth: Down to and including healthy tissue and in the subcutaneous layer Percentage of wound debrided: 100 Instrument Used: 5mm curette Tissue Removed: Slough and devitalized tissue Severity: Fat Layer Exposed Amount of bleeding with debridement: Mild Bleeding Controlled with: Pressure Patient tolerated procedure: Patient tolerated procedure well Additional Wound Wound debrided: Left lower extremity ( superior ) Type of Debridement: Excisional debridement Anesthesia Used: 4% Lidocaine Solution Depth: Down to and including healthy tissue and in the subcutaneous layer Percentage of wound debrided: 100 Instrument Used: 5mm curette Tissue Removed: Slough and devitalized tissue Severity: Fat Layer Exposed Amount of bleeding with debridement: Mild Bleeding Controlled with: Pressure Patient tolerated procedure: Patient tolerated procedure well Assessment/Plan Assessment/Plan (1) Ulcer of left lower extremity with fat layer exposed: CODE(S): L97.922 - Non-pressure chronic ulcer of unspecified part of left lower leg with fat layer exposed (2) PVD (peripheral vascular disease): CODE(S): I73.9 - Peripheral vascular disease, unspecified (3) Chronic venous insufficiency: CODE(S): I87.2 - Venous insufficiency (chronic) (peripheral) (4) Delayed wound healing: CODE(S): T14.8XXD - Other injury of unspecified body region, subsequent encounter PLAN: Debridement done as documented above, procedure was well-tolerated. As above, reports foul smell however this was not appreciated. Not doing daily dressings as discussed. Strongly advised to change his dressings daily or twice daily depending on drainage. He voiced understanding. Continue Aquacel silver and care max care to all ulcers, change daily to twice daily depending on drainage. Continue use of compression stockings, leg elevation and exercise. Increased protein intake, protein supplements, zinc and vitamin C also recommended. Continue doxycycline for antibiotic prophylaxis due to MRSA colonization. His questions were answered and was advised to call with any further questions or concerns. Follow-up in 2 weeks. This note was generated with [employer] dictation software. It may contain incorrect words, spelling, and punctuation that were not noted in checking the note before signing.
== END 2021-10-28 23:59 ==
LOC: WC 09:00
PROVIDERS: Visit Provider Internal Medicine
DX: I73.9 Peripheral vascular disease, unspecified (principal); I87.2 Venous insufficiency (chronic) (peripheral); R60.0 Localized edema; L97.322 Non-pressure chronic ulcer of left ankle with fat layer exposed; T14.8XXD Other injury of unspecified body region, subsequent encounter
CPT/HCPCS: 11042; 11045

== ENCOUNTER 2021-11-24 09:15 | Outpatient (RCR) | payer BC, SELFPAY ==
[2021-10-29 00:22] VITALS: BP 141/89; PULSE 93; RESP 16; TEMP 36.2; O2SAT 99; BMI 31.4
[2021-11-10 09:03] VITALS: BP 137/81; PULSE 88; RESP 18; TEMP 36.4; BMI 31.4
--- NOTE | 2021-11-10 09:29 | PN.PCM_ITS ---
History of Present Illness Date of Service: 11/10/21 Chief Complaint: ulcers to the left lower leg History of Wound: This is a 54-year-old male presents to wound healing center with a long-standing history of chronic venous insufficiency, chronic venous hypertension, lower extremity edema, lower extremity pain, and chronic left lower extremity ulcer. 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 He is currently wearing graduated compression stockings which are documented to be 20-30 mmHg compression and these are thigh high. He reports great compliance with use. He is also had previous arterial work-up with no intervention recommended by letter, his vascular surgeon. He denies taking nutritional supplementation. He saw dermatology and had a biopsy of the ulcer site. He also was previously treated by infectious disease for various contaminations and infections. He is not antibiotics at this time nor does he have any redness or odor coming from the wound. He denies fever, chill, nausea, vomiting, loss of appetite. Progress of Wound: Stable ulcers. Has had 3 months of antibiotic prophylaxis with doxycycline due to MRSA colonization. Has had no significant infection while on doxycycline. Subjective Subjective No new concerns at this time. No chills, fever or otherwise feeling of unwell Objective Data Objective Data Vital Signs: Vital Signs Temp Pulse Resp BP Pulse Ox 97.6 F L 88 18 137/81 H 99 11/10/21 09:03 11/10/21 09:03 11/10/21 09:03 11/10/21 09:03 10/29/21 00:22 Body Mass Index (BMI) 31.4 Charges/Coding Procedures Integumentary 111xxx-113xx: [id number] Lakeisha subq tissue 20 sq cm/< Add On Codes: 01376 Lakeisha subq tissue add-on (x1 additional square centimeter debrided, please refer to clinical note) Physical Exam Const alert, oriented x3 and no apparent distress General Appearance: cooperative and comfortable Orientation / Consciousness: awake HEENT normocephalic Head and Scalp: normal to inspection, normocephalic and atraumatic Face and Sinus: normal facial exam Eyes EOMs intact bilaterally Neck full ROM and supple General: normal visual inspection Resp normal respiratory effort Effort and Inspection: able to speak in complete sentences GI non-tender Extremity normal to inspection General Extremity: edema Skin Wounds: wounds noted Neuro oriented x3 and CN's II-XII intact bilaterally Psych mental status grossly normal Appearance: grossly normal Debridement Note Debridement Note Wound debrided: Left lower extremity (medial ankle) Type of Debridement: Excisional debridement Anesthesia Used: 4% Lidocaine Solution Depth: Down to and including healthy tissue and in the subcutaneous layer Percentage of wound debrided: 100 Instrument Used: 5mm curette Tissue Removed: Slough and devitalized tissue Severity: Fat Layer Exposed Amount of bleeding with debridement: Mild Bleeding Controlled with: Pressure Patient tolerated procedure: Patient tolerated procedure well Post-Debridement Measurements and Additional Note: Post-Debridement Measurements/Treatment WC - Nurse 1 - General Ulcer Assessment Start: 11/10/21 09:03 Freq: Status: Active Protocol: SHANTA Activity Type Activity Date Activity User E-Sign Co-Sign Detail Recorded Client Recorded Date Recorded By Document 11/10/21 09:03 DL [id number] 11/10/21 09:10 DL 11/10/21 09:03 WC - Today's Visit Information Type of service Follow-up Visit (Physician/INFANT CAREGIVER ) Arrival Mode Ambulatory Transfer Assistance None Patient Identification Verified (Name & Yes ) Patient Requires Transmission-Based No Precautions Height and Weight Body Mass Index (BMI) 31.4 BMI Classification Obese Vital Signs Temperature (97.8 F-99.1 F) 97.6 F L Temperature Source Temporal Pulse Rate (60-100) 88 Pulse Location Monitor Respiratory Rate (12-18) 18 Respiratory rate source Observation Blood Pressure (90/60-120/80) 137/81 H Blood Pressure Mean (mm Hg) 99 Source Monitor History Since Last Visit- (Skip if this is Patient's initial visit) Have you changed medications since your No last visit? Any new allergies or adverse reactions No Had a fall/change in ADL's that may No increase risk of falls Signs or symptoms of abuse and/or No neglect since last visit Have you been in the hospital since your No last visit? Has dressing in place as prescribed Yes Has compression in place as prescribed Yes Experienced any changes in pain level or No management Pain Scale: 0-10 Numeric Is Patient Pain Free? Yes KIMBERLY - Nurse 1 - General Ulcer Measurement Start: 11/10/21 09:03 Freq: Status: Active Protocol: Activity Type Activity Date Activity User E-Sign Co-Sign Detail Recorded Client Recorded Date Recorded By Document 11/10/21 09:03 TIFFANY [id number] 11/10/21 09:10 TIFFANY 11/10/21 09:03 Wound Center Nurse 1 #12 Medial Superior LLE -Current Size (cm) - Length 1.4 -Current Size (cm) - Width 1.6 -Current Size (cm) - Depth 0.1 -Total Square Cm 2.24 -Photo Taken No -Exudate Amt Medium -Exudate Type Serosanguineous -Wound Margin Distinct, Outline Attached -Granulation Amt Large (67-100%) -Granulation Quality Red -Necrosis Amt Small (1-33%) -Necrotic Tissue Type Adherent Slough -Structure Exposed N/A -Texture (Ara-wound Skin Appearance) Scarring -Moisture (Ara-wound Skin Appearance) Dry/Scaly -Color (Ara-wound Skin Appearance) Hemosiderin Staining -Temperature (Ara-wound Skin No Abnormality Appearance) (Pt Warm) -Tenderness on Palpation (Ara-wound No Skin Appearance) -Ulcer Cleansing Rinsed/ Irrigated with Saline -Foul Odor after Cleansing No -Anesthetic Used 4% Lidocaine Solution #11 Medial Inferior LLE -Current Size (cm) - Length 2.7 -Current Size (cm) - Width 4.2 -Current Size (cm) - Depth 0.1 -Total Square Cm 11.34 -Photo Taken No -Exudate Amt Medium -Exudate Type Serosanguineous -Wound Margin Distinct, Outline Attached -Granulation Amt Large (67-100%) -Granulation Quality Red -Necrosis Amt Small (1-33%) -Necrotic Tissue Type Adherent Slough -Texture (Ara-wound Skin Appearance) Scarring -Moisture (Ara-wound Skin Appearance) Dry/Scaly -Color (Ara-wound Skin Appearance) Hemosiderin Staining -Temperature (Ara-wound Skin No Abnormality Appearance) (Pt Warm) -Tenderness on Palpation (Ara-wound No Skin Appearance) -Ulcer Cleansing Rinsed/ Irrigated with Saline -Foul Odor after Cleansing No -Anesthetic Used 4% Lidocaine Solution #10 Left Medial Ankle -Current Size (cm) - Length 5 -Current Size (cm) - Width 4 -Current Size (cm) - Depth 0.1 -Total Square Cm 20 -Photo Taken No -Exudate Amt Medium -Exudate Type Serosanguineous -Wound Margin Distinct, Outline Attached -Granulation Amt Medium (34-66%) -Granulation Quality Red -Necrosis Amt Medium (34-66%) -Necrotic Tissue Type Adherent Slough -Structure Exposed N/A -Texture (Ara-wound Skin Appearance) Scarring -Moisture (Ara-wound Skin Appearance) Dry/Scaly -Color (Ara-wound Skin Appearance) Hemosiderin Staining -Temperature (Ara-wound Skin No Abnormality Appearance) (Pt Warm) -Tenderness on Palpation (Ara-wound No Skin Appearance) -Ulcer Cleansing Rinsed/ Irrigated with Saline -Foul Odor after Cleansing No -Anesthetic Used 4% Lidocaine Solution Left Calf (cm) 35 Left Ankle (cm) 24.6 WC - Nurse 2 - General Ulcer CM Notes Start: 11/10/21 09:03 Freq: Status: Active Protocol: Activity Type Activity Date Activity User E-Sign Co-Sign Detail Recorded Client Recorded Date Recorded By Document 11/10/21 09:18 MW [id number] 11/10/21 09:27 MW 11/10/21 09:18 Wound Center Nurse 2 #12 Medial Superior LLE -Time 09:19 -Correct Patient Yes -Correct Side, Site, Position Yes -Correct Procedure Yes -Procedure Performed Yes -Type of Procedure Debridement -Clinical Debridement Subcutaneous -Tissue Removed Subcutaneous -Post Debridement (cm) - Length 1.5 -Post Debridement (cm) - Width 1.3 -Post Debridement (cm) - Depth 0.1 -Total Square (Post) (cm) 1.95 -Area of Debridement (cm) - Length 1.5 -Area of Debridement (cm) - Width 1.3 -Total Square (Area) (cm) 1.95 -Tunneling No -Undermining/Tunneling No -Circular Undermining No -Wound/Ulcer Outcome Not Healed -Ulcer Cleansing Rinsed/ Irrigated with Saline -Foul Odor after Cleansing No -Bioengineered Tissue No -Bleeding Controlled with Pressure -Offloading No -Treatment Response Procedure Tolerated Well -Debridement - Subq, 1st 20sq cm Yes -Debridement, SubQ, ea addt'l 20sq cm 1 or part thereof #11 Medial Inferior LLE -Time 09:19 -Correct Patient Yes -Correct Side, Site, Position Yes -Correct Procedure Yes -Procedure Performed Yes -Type of Procedure Debridement -Clinical Debridement Subcutaneous -Tissue Removed Subcutaneous -Post Debridement (cm) - Length 3.0 -Post Debridement (cm) - Width 4.6 -Post Debridement (cm) - Depth 0.1 -Total Square (Post) (cm) 13.80 -Area of Debridement (cm) - Length 3.0 -Area of Debridement (cm) - Width 4.6 -Total Square (Area) (cm) 13.80 -Tunneling No -Undermining/Tunneling No -Circular Undermining No -Wound/Ulcer Outcome Not Healed -Ulcer Cleansing Rinsed/ Irrigated with Saline -Foul Odor after Cleansing No -Bioengineered Tissue No -Bleeding Controlled with Pressure -Offloading No -Treatment Response Procedure Tolerated Well -Debridement - Subq, 1st 20sq cm No #10 Left Medial Ankle -Time 09:20 -Correct Patient Yes -Correct Side, Site, Position Yes -Correct Procedure Yes -Procedure Performed Yes -Type of Procedure Debridement -Clinical Debridement Subcutaneous -Tissue Removed Subcutaneous -Post Debridement (cm) - Length 4.4 -Post Debridement (cm) - Width 4.0 -Post Debridement (cm) - Depth 0.2 -Total Square (Post) (cm) 17.60 -Area of Debridement (cm) - Length 4.4 -Area of Debridement (cm) - Width 4.0 -Total Square (Area) (cm) 17.60 -Tunneling No -Undermining/Tunneling No -Circular Undermining No -Wound/Ulcer Outcome Not Healed -Ulcer Cleansing Rinsed/ Irrigated with Saline -Foul Odor after Cleansing No -Bioengineered Tissue No -Bleeding Controlled with Pressure -Offloading No -Treatment Response Procedure Tolerated Well -Debridement - Subq, 1st 20sq cm No Pain Scale: 0-10 Numeric Is Patient Pain Free? Yes Additional Wound Wound debrided: Left lower extremity inferior Type of Debridement: Excisional debridement Anesthesia Used: 4% Lidocaine Solution Depth: Down to and including healthy tissue and in the subcutaneous layer Percentage of wound debrided: 100 Instrument Used: 3mm curette Tissue Removed: Slough and devitalized tissue Severity: Fat Layer Exposed Amount of bleeding with debridement: Mild Bleeding Controlled with: Pressure Patient tolerated procedure: Patient tolerated procedure well Additional Wound Wound debrided: Left lower extremity (superior) Type of Debridement: Excisional debridement Anesthesia Used: 4% Lidocaine Solution Depth: Down to and including healthy tissue and in the subcutaneous layer Percentage of wound debrided: 100 Instrument Used: 5mm curette Tissue Removed: Slough and devitalized tissue Severity: Fat Layer Exposed Amount of bleeding with debridement: Mild Bleeding Controlled with: Pressure Patient tolerated procedure: Patient tolerated procedure well Assessment/Plan Assessment/Plan (1) Ulcer of left lower extremity with fat layer exposed: CODE(S): L97.922 - Non-pressure chronic ulcer of unspecified part of left lower leg with fat layer exposed (2) PVD (peripheral vascular disease): CODE(S): I73.9 - Peripheral vascular disease, unspecified (3) Chronic venous insufficiency: CODE(S): I87.2 - Venous insufficiency (chronic) (peripheral) (4) Delayed wound healing: CODE(S): T14.8XXD - Other injury of unspecified body region, subsequent encounter PLAN: Debridement done as documented above, procedure was well-tolerated. Some improvement noted this week. Continue Aquacel silver and care max care to all ulcers, change daily to twice daily depending on drainage. Continue use of compression stockings, leg elevation and exercise. Increased protein intake, protein supplements, zinc and vitamin C also recommended. Continue doxycycline for antibiotic prophylaxis due to MRSA colonization. New prescription for 3 months given. Has not had any significant infection while on the prophylaxis. We will treat for a total of 6 months. His questions were answered and was advised to call with any further questions or concerns. Follow-up in 2 weeks. This note was generated with [employer] dictation software. It may contain incorrect words, spelling, and punctuation that were not noted in checking the note before signing.
[2021-11-24 09:14] VITALS: BP 154/87; PULSE 84; RESP 16; TEMP 36.5; BMI 31.4
--- NOTE | 2021-11-24 10:16 | PCM.WC.PN ---
History of Present Illness Date of Service: 11/24/21 Chief Complaint: ulcers to the left lower leg History of Wound: This is a 54-year-old male presents to wound healing center with a long-standing history of chronic venous insufficiency, chronic venous hypertension, lower extremity edema, lower extremity pain, and chronic left lower extremity ulcer. 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 He is currently wearing graduated compression stockings which are documented to be 20-30 mmHg compression and these are thigh high. He reports great compliance with use. He is also had previous arterial work-up with no intervention recommended by letter, his vascular surgeon. He denies taking nutritional supplementation. He saw dermatology and had a biopsy of the ulcer site. He also was previously treated by infectious disease for various contaminations and infections. He is not antibiotics at this time nor does he have any redness or odor coming from the wound. He denies fever, chill, nausea, vomiting, loss of appetite. Progress of Wound: Stable ulcers. Some improvement noted this week.. Subjective Subjective No new concerns at this time. No chills, fever or otherwise feeling of unwell Objective Data Objective Data Vital Signs: Vital Signs Temp Pulse Resp BP Pulse Ox 97.7 F L 84 16 154/87 H 99 11/24/21 09:14 11/24/21 09:14 11/24/21 09:14 11/24/21 09:14 10/29/21 00:22 Oxygen Delivery Method Room Air Body Mass Index (BMI) 31.4 Charges/Coding Procedures Integumentary 111xxx-113xx: 81512 Lakeisha subq tissue 20 sq cm/< Add On Codes: 39313 Lakeisha subq tissue add-on (x1 additional square centimeter debrided, please refer to clinical note) Physical Exam Const alert, oriented x3 and no apparent distress General Appearance: cooperative and comfortable Orientation / Consciousness: awake HEENT normocephalic Head and Scalp: normal to inspection, normocephalic and atraumatic Face and Sinus: normal facial exam Eyes EOMs intact bilaterally Neck full ROM and supple General: normal visual inspection Resp normal respiratory effort Effort and Inspection: able to speak in complete sentences GI non-tender Extremity normal to inspection General Extremity: edema Skin Wounds: wounds noted Neuro oriented x3 and CN's II-XII intact bilaterally Psych mental status grossly normal Appearance: grossly normal Debridement Note Debridement Note Wound debrided: Left Lower Extremity ( ankle ) Type of Debridement: Excisional debridement Anesthesia Used: 4% Lidocaine Solution Depth: Down to and including healthy tissue and in the subcutaneous layer Percentage of wound debrided: 100 Instrument Used: 5mm curette Tissue Removed: Slough and devitalized tissue Severity: Fat Layer Exposed Amount of bleeding with debridement: Mild Bleeding Controlled with: Pressure Patient tolerated procedure: Patient tolerated procedure well Post-Debridement Measurements and Additional Note: Post-Debridement Measurements/Treatment - Nurse 1 - General Ulcer Assessment Start: 11/10/21 09:03 Freq: Status: Active Protocol: SHANTA Activity Type Activity Date Activity User E-Sign Co-Sign Detail Recorded Client Recorded Date Recorded By Document 11/10/21 09:03 DL [id number] 11/10/21 09:10 DL Document 11/24/21 09:[address] [facility] [id number] 11/24/21 09:26 BM 11/10/21 11/24/21 09:03 09:14 - Today's Visit Information Type of service Follow-up Visit Follow-up Visit (Physician/ASSEMBLY MACHINE OFFBEARER (Physician/ASSEMBLY MACHINE OFFBEARER ) ) Arrival Mode Ambulatory Ambulatory Transfer Assistance None Patient Identification Verified (Name & Yes No ) Patient Requires Transmission-Based No No Precautions Height and Weight Body Mass Index (BMI) 31.4 31.4 BMI Classification Obese Obese Vital Signs Temperature (97.8 F-99.1 F) 97.6 F L 97.7 F L Temperature Source Temporal Temporal Pulse Rate (60-100) 88 84 Pulse Location Monitor Monitor Respiratory Rate (12-18) 18 16 Respiratory rate source Observation Observation Oxygen Delivery Method Room Air Blood Pressure (90/60-120/80) 137/81 H 154/87 H Blood Pressure Mean (mm Hg) 99 109 Source Monitor Monitor Position Sitting Blood Pressure Location Right Arm History Since Last Visit- (Skip if this is Patient's initial visit) Have you changed medications since your No No last visit? Any new allergies or adverse reactions No No Had a fall/change in ADL's that may No No increase risk of falls Signs or symptoms of abuse and/or No No neglect since last visit Have you been in the hospital since your No No last visit? Has dressing in place as prescribed Yes Yes Has compression in place as prescribed Yes Yes Has offloadiing in place as prescribed N/A Experienced any changes in pain level or No No management Left Footwear Regular Shoe Right Footwear Regular Shoe Pain Scale: 0-10 Numeric Is Patient Pain Free? Yes Yes WC - Nurse 1 - General Ulcer Measurement Start: 11/10/21 09:03 Freq: Status: Active Protocol: Activity Type Activity Date Activity User E-Sign Co-Sign Detail Recorded Client Recorded Date Recorded By Document 11/10/21 09:03 DL [id number] 11/10/21 09:10 DL Document 11/24/21 09:[address] [facility] [id number] 11/24/21 09:26 BMF 11/10/21 11/24/21 09:03 09:14 Wound Center Nurse 1 #12 Medial Superior LLE -Combined with other wound No -Current Size (cm) - Length 1.4 1.4 -Current Size (cm) - Width 1.6 1.5 -Current Size (cm) - Depth 0.1 0.1 -Total Square Cm 2.24 2.10 -Photo Taken No No -Epithelialization None Present -Tunneling No -Undermining/Tunneling No -Circular Undermining No -Exudate Amt Medium Medium -Exudate Type Serosanguineous Serosanguineous -Wound Margin Distinct, Distinct, Outline Outline Attached Attached -Granulation Amt Large (67-100%) Large (67-100%) -Granulation Quality Red Red -Slough/Fibrin Yes -Necrosis Amt Small (1-33%) Small (1-33%) -Necrotic Tissue Type Adherent Slough Adherent Slough -Structure Exposed N/A -Texture (Ara-wound Skin Appearance) Scarring Assessed, Scarring -Moisture (Ara-wound Skin Appearance) Dry/Scaly Assessed,Dry/ Scaly -Color (Ara-wound Skin Appearance) Hemosiderin Assessed Staining -Temperature (Ara-wound Skin No Abnormality No Abnormality Appearance) (Pt Warm) (Pt Warm) -Tenderness on Palpation (Ara-wound No No Skin Appearance) -Ulcer Cleansing Rinsed/ Soap and Water Irrigated with Saline -Foul Odor after Cleansing No No -Anesthetic Used 4% Lidocaine 5% Lidocaine Solution Gel #11 Medial Inferior LLE -Combined with other wound No -Current Size (cm) - Length 2.7 4.8 -Current Size (cm) - Width 4.2 4 -Current Size (cm) - Depth 0.1 0.1 -Total Square Cm 11.34 19.2 -Photo Taken No No -Epithelialization None Present -Tunneling No -Undermining/Tunneling No -Circular Undermining No -Exudate Amt Medium Medium -Exudate Type Serosanguineous Serosanguineous -Wound Margin Distinct, Distinct, Outline Outline Attached Attached -Granulation Amt Large (67-100%) Medium (34-66%) -Granulation Quality Red Red -Slough/Fibrin Yes -Necrosis Amt Small (1-33%) Medium (34-66%) -Necrotic Tissue Type Adherent Slough Adherent Slough -Texture (Ara-wound Skin Appearance) Scarring Assessed, Scarring -Moisture (Ara-wound Skin Appearance) Dry/Scaly Assessed,Dry/ Scaly -Color (Ara-wound Skin Appearance) Hemosiderin Assessed Staining -Temperature (Ara-wound Skin No Abnormality No Abnormality Appearance) (Pt Warm) (Pt Warm) -Tenderness on Palpation (Ara-wound No No Skin Appearance) -Ulcer Cleansing Rinsed/ Soap and Water Irrigated with Saline -Foul Odor after Cleansing No Yes, Due to Product Use -Anesthetic Used 4% Lidocaine 5% Lidocaine Solution Gel #10 Left Medial Ankle -Combined with other wound No -Current Size (cm) - Length 5 5.6 -Current Size (cm) - Width 4 4 -Current Size (cm) - Depth 0.1 0.2 -Total Square Cm 20 22.4 -Photo Taken No No -Epithelialization None Present -Tunneling No -Undermining/Tunneling No -Circular Undermining No -Exudate Amt Medium Medium -Exudate Type Serosanguineous Serosanguineous -Wound Margin Distinct, Distinct, Outline Outline Attached Attached -Granulation Amt Medium (34-66%) Small (1-33%) -Granulation Quality Red [place] -Slough/Fibrin Yes -Necrosis Amt Medium (34-66%) Large (67-100%) -Necrotic Tissue Type Adherent Slough Adherent Slough -Structure Exposed N/A -Texture (Ara-wound Skin Appearance) Scarring Assessed, Scarring -Moisture (Ara-wound Skin Appearance) Dry/Scaly Assessed,Dry/ Scaly -Color (Ara-wound Skin Appearance) Hemosiderin Assessed Staining -Temperature (Ara-wound Skin No Abnormality No Abnormality Appearance) (Pt Warm) (Pt Warm) -Tenderness on Palpation (Ara-wound No No Skin Appearance) -Ulcer Cleansing Rinsed/ Soap and Water Irrigated with Saline -Foul Odor after Cleansing No -Anesthetic Used 4% Lidocaine 5% Lidocaine Solution Gel Left Calf (cm) 35 Left Ankle (cm) 24.6 WC - Nurse 2 - General Ulcer CM Notes Start: 11/10/21 09:03 Freq: Status: Active Protocol: Activity Type Activity Date Activity User E-Sign Co-Sign Detail Recorded Client Recorded Date Recorded By Document 11/10/21 09:18 MW [id number] 11/10/21 09:27 MW Document 11/24/21 09:42 MW [id number] 11/24/21 09:50 MW 11/10/21 11/24/21 09:18 09:42 Wound Center Nurse 2 #12 Medial Superior LLE -Time 09:19 09:45 -Correct Patient Yes Yes -Correct Side, Site, Position Yes Yes -Correct Procedure Yes Yes -Procedure Performed Yes Yes -Type of Procedure Debridement Debridement -Clinical Debridement Subcutaneous Subcutaneous -Tissue Removed Subcutaneous Subcutaneous -Post Debridement (cm) - Length 1.5 1.8 -Post Debridement (cm) - Width 1.3 1.2 -Post Debridement (cm) - Depth 0.1 0.1 -Total Square (Post) (cm) 1.95 2.16 -Area of Debridement (cm) - Length 1.5 1.8 -Area of Debridement (cm) - Width 1.3 1.2 -Total Square (Area) (cm) 1.95 2.16 -Tunneling No No -Undermining/Tunneling No No -Circular Undermining No No -Wound/Ulcer Outcome Not Healed Not Healed -Ulcer Cleansing Rinsed/ Rinsed/ Irrigated with Irrigated with Saline Saline -Foul Odor after Cleansing No No -Bioengineered Tissue No No -Bleeding Controlled with Pressure Pressure -Offloading No No -Treatment Response Procedure Procedure Tolerated Well Tolerated Well -Debridement - Subq, 1st 20sq cm Yes Yes -Debridement, SubQ, ea addt'l 20sq cm 1 or part thereof #11 Medial Inferior LLE -Time 09:19 09:45 -Correct Patient Yes Yes -Correct Side, Site, Position Yes Yes -Correct Procedure Yes Yes -Procedure Performed Yes Yes -Type of Procedure Debridement Debridement -Clinical Debridement Subcutaneous Subcutaneous -Tissue Removed Subcutaneous Subcutaneous -Post Debridement (cm) - Length 3.0 3.0 -Post Debridement (cm) - Width 4.6 4.3 -Post Debridement (cm) - Depth 0.1 0.1 -Total Square (Post) (cm) 13.80 12.90 -Area of Debridement (cm) - Length 3.0 3.0 -Area of Debridement (cm) - Width 4.6 4.3 -Total Square (Area) (cm) 13.80 12.90 -Tunneling No No -Undermining/Tunneling No No -Circular Undermining No No -Wound/Ulcer Outcome Not Healed Not Healed -Ulcer Cleansing Rinsed/ Rinsed/ Irrigated with Irrigated with Saline Saline -Foul Odor after Cleansing No No -Bioengineered Tissue No No -Bleeding Controlled with Pressure Pressure -Offloading No No -Treatment Response Procedure Procedure Tolerated Well Tolerated Well -Debridement - Subq, 1st 20sq cm No No #10 Left Medial Ankle -Time 09:20 09:45 -Correct Patient Yes Yes -Correct Side, Site, Position Yes Yes -Correct Procedure Yes Yes -Procedure Performed Yes Yes -Type of Procedure Debridement Debridement -Clinical Debridement Subcutaneous Subcutaneous -Tissue Removed Subcutaneous Subcutaneous -Post Debridement (cm) - Length 4.4 4.3 -Post Debridement (cm) - Width 4.0 4.0 -Post Debridement (cm) - Depth 0.2 0.2 -Total Square (Post) (cm) 17.60 17.20 -Area of Debridement (cm) - Length 4.4 4.3 -Area of Debridement (cm) - Width 4.0 4.0 -Total Square (Area) (cm) 17.60 17.20 -Tunneling No No -Undermining/Tunneling No No -Circular Undermining No No -Wound/Ulcer Outcome Not Healed Not Healed -Ulcer Cleansing Rinsed/ Rinsed/ Irrigated with Irrigated with Saline Saline -Foul Odor after Cleansing No No -Bioengineered Tissue No No -Bleeding Controlled with Pressure Pressure -Offloading No No -Treatment Response Procedure Procedure Tolerated Well Tolerated Well -Debridement - Subq, 1st 20sq cm No No Pain Scale: 0-10 Numeric Is Patient Pain Free? Yes Yes - Nurse 3 - General Ulcer D/C NN Start: 11/10/21 09:03 Freq: Status: Active Protocol: Activity Type Activity Date Activity User E-Sign Co-Sign Detail Recorded Client Recorded Date Recorded By Document 11/10/21 09:35 [id number] 11/10/21 09:36 Document 11/24/21 09:[address] [facility] [id number] 11/24/21 09:[address] [facility] 11/10/21 11/24/21 09:35 09:56 Wound Care Nurse 3 #12 Medial Superior LLE -Ulcer Cleansing Rinsed/ Rinsed/ Irrigated with Irrigated with Saline Saline -Foul Odor after Cleansing No No -Primary Dressing Applied Aquacel AG 4x4 Aquacel AG 4x4 -Other Dressing kerramax -Primary Dressing Covered/Secured with Other -Other Covering secures w/ compression stocking, abd -Aquacel AG 4x4 1 1 #11 Medial Inferior LLE -Ulcer Cleansing Rinsed/ Rinsed/ Irrigated with Irrigated with Saline Saline -Foul Odor after Cleansing No No -Primary Dressing Applied Aquacel AG 4x4 Aquacel AG 4x4, Other -Other Dressing kerramax kerramax -Primary Dressing Covered/Secured with Secured with Tape -Aquacel AG 4x4 0 0 #10 Left Medial Ankle -Ulcer Cleansing Rinsed/ Rinsed/ Irrigated with Irrigated with Saline Saline -Foul Odor after Cleansing No No -Primary Dressing Applied Aquacel AG 4x4 Aquacel Extra, Other -Other Dressing kerramax kerramax -Primary Dressing Covered/Secured with Secured with Tape -Aquacel Extra 0 -Aquacel AG 4x4 0 Left -Other pt applied own compression stocking Treatment Response Procedure Tolerated Well Pain Scale: 0-10 Numeric Is Patient Pain Free? Yes Yes - Visit Discharge Discharge Condition Stable Stable Ambulatory Status Ambulatory Ambulatory Transportation Private Auto Private Auto Medication Reconcilliation completed & Yes provided to patient/care provider Clinical Summary of Care Provided Yes Additional Wound Wound debrided: Left Lower Extremity ( Inferior) Type of Debridement: Excisional debridement Anesthesia Used: 4% Lidocaine Solution Depth: Down to and including healthy tissue and in the subcutaneous layer Percentage of wound debrided: 100 Instrument Used: 5mm curette Tissue Removed: Slough and devitalized tissue Severity: Fat Layer Exposed Amount of bleeding with debridement: Mild Bleeding Controlled with: Pressure Patient tolerated procedure: Patient tolerated procedure well Additional Wound Wound debrided: Left Lower Extremity ( Superior ) Type of Debridement: Excisional debridement Anesthesia Used: 4% Lidocaine Solution Depth: Down to and including healthy tissue and in the subcutaneous layer Percentage of wound debrided: 100 Instrument Used: 5mm curette Tissue Removed: Slough and devitalized tissue Severity: Fat Layer Exposed Amount of bleeding with debridement: Mild Bleeding Controlled with: Pressure Patient tolerated procedure: Patient tolerated procedure well Assessment/Plan Assessment/Plan (1) Ulcer of left lower extremity with fat layer exposed: CODE(S): L97.922 - Non-pressure chronic ulcer of unspecified part of left lower leg with fat layer exposed (2) PVD (peripheral vascular disease): CODE(S): I73.9 - Peripheral vascular disease, unspecified (3) Chronic venous insufficiency: CODE(S): I87.2 - Venous insufficiency (chronic) (peripheral) (4) Delayed wound healing: CODE(S): T14.8XXD - Other injury of unspecified body region, subsequent encounter PLAN: Debridement done as documented above, procedure was well-tolerated. Some improvement noted this week. Continue Aquacel silver and care max care to all ulcers, change daily to twice daily depending on drainage. Continue use of compression stockings, leg elevation and exercise. Increased protein intake, protein supplements, zinc and vitamin C also recommended. Continue doxycycline for antibiotic prophylaxis due to MRSA colonization. Has not had any significant infection while on the prophylaxis. We will treat for a total of 6 months. His questions were answered and was advised to call with any further questions or concerns. Follow-up in 2 weeks. This note was generated with [employer] software. It may contain incorrect words, spelling, and punctuation that were not noted in checking the note before signing.
== END 2021-11-28 23:59 ==
LOC: WC 09:15
PROVIDERS: Visit Provider Internal Medicine
DX: I73.9 Peripheral vascular disease, unspecified (principal); L97.322 Non-pressure chronic ulcer of left ankle with fat layer exposed; I87.2 Venous insufficiency (chronic) (peripheral); Z22.322 Carrier or suspected carrier of Methicillin resistant Staphylococcus aureus; R60.0 Localized edema
CPT/HCPCS: 11042; 11045

== ENCOUNTER 2021-12-22 09:00 | Outpatient (RCR) | payer BC, SELFPAY ==
[2021-11-29 00:27] VITALS: BP 154/87; PULSE 84; RESP 16; TEMP 36.5; O2SAT 99; BMI 31.4
[2021-12-08 09:04] VITALS: BP 138/76; PULSE 99; RESP 18; TEMP 36.5; O2SAT 99; BMI 31.4
--- NOTE | 2021-12-08 09:42 | PCM.WC.PN ---
History of Present Illness Date of Service: 12/08/21 Chief Complaint: ulcers to the left lower leg History of Wound: This is a 54-year-old male presents to wound healing center with a long-standing history of chronic venous insufficiency, chronic venous hypertension, lower extremity edema, lower extremity pain, and chronic left lower extremity ulcer. The patient has previously undergone endovenous laser ablation of the left and right great saphenous vein, the small saphenous vein, the left accessory saphenous vein, and an incompetent left calf document imaging specialist vein located 15 cm proximal to the left medial malleolus. He is currently wearing graduated compression stockings which are documented to be 20-30 mmHg compression and these are thigh high. He reports great compliance with use. He is also had previous arterial work-up with no intervention recommended by letter, his vascular surgeon. He denies taking nutritional supplementation. He saw dermatology and had a biopsy of the ulcer site. He also was previously treated by infectious disease for various contaminations and infections. He is not antibiotics at this time nor does he have any redness or odor coming from the wound. He denies fever, chill, nausea, vomiting, loss of appetite. Progress of Wound: Overall stable. Left upper extremity ulcer is improving. Subjective Subjective He reports increased drainage from the left medial ankle ulcer. Otherwise, feels well. Objective Data Objective Data Vital Signs: Vital Signs Temp Pulse Resp BP Pulse Ox 97.7 F L 99 18 138/76 H 99 12/08/21 09:04 12/08/21 09:04 12/08/21 09:04 12/08/21 09:04 12/08/21 09:04 Body Mass Index (BMI) 31.4 Charges/Coding Procedures Integumentary 111xxx-113xx: 36377 Lakeisha subq tissue 20 sq cm/< Add On Codes: 35080 Lakeisha subq tissue add-on (Additional square centimeter debrided, please refer to clinical note) Physical Exam Const alert, oriented x3 and no apparent distress General Appearance: cooperative and comfortable Orientation / Consciousness: awake HEENT normocephalic Head and Scalp: normal to inspection, normocephalic and atraumatic Face and Sinus: normal facial exam Eyes EOMs intact bilaterally Neck full ROM and supple General: normal visual inspection Resp normal respiratory effort Effort and Inspection: able to speak in complete sentences GI non-tender Extremity normal to inspection General Extremity: edema Skin Wounds: wounds noted Neuro oriented x3 and CN's II-XII intact bilaterally Psych mental status grossly normal Appearance: grossly normal Debridement Note Debridement Note Wound debrided: Left medial ankle Type of Debridement: Excisional debridement Anesthesia Used: 4% Lidocaine Solution Depth: Down to and including healthy tissue and in the subcutaneous layer Percentage of wound debrided: 100 Instrument Used: 5mm curette Tissue Removed: Slough and devitalized tissue Severity: Fat Layer Exposed Amount of bleeding with debridement: Mild Bleeding Controlled with: Pressure Patient tolerated procedure: Patient tolerated procedure well Post-Debridement Measurements and Additional Note: Post-Debridement Measurements/Treatment - Nurse 1 - General Ulcer Assessment Start: 12/08/21 09:03 Freq: Status: Active Protocol: SHANTA Activity Type Activity Date Activity User E-Sign Co-Sign Detail Recorded Client Recorded Date Recorded By Document 12/08/21 09:04 TRIPP [id number] 12/08/21 09:16 TRIPP 12/08/21 09:04 WC - Today's Visit Information Type of service Follow-up Visit (Physician/RESPIRATORY CLINICIAN ) Arrival Mode Ambulatory Transfer Assistance None Patient Identification Verified (Name & Yes ) Patient Requires Transmission-Based No Precautions Height and Weight Body Mass Index (BMI) 31.4 BMI Classification Obese Vital Signs Temperature (97.8 F-99.1 F) 97.7 F L Temperature Source Temporal Pulse Rate (60-100) 99 Pulse Location Monitor Respiratory Rate (12-18) 18 Pulse Oximetry 99 Blood Pressure (90/60-120/80) 138/76 H Blood Pressure Mean (mm Hg) 96 Source Monitor Position Semi-Fowlers Blood Pressure Location Left Arm History Since Last Visit- (Skip if this is Patient's initial visit) Have you changed medications since your No last visit? Any new allergies or adverse reactions No Had a fall/change in ADL's that may No increase risk of falls Signs or symptoms of abuse and/or No neglect since last visit Have you been in the hospital since your No last visit? Has dressing in place as prescribed Yes Has compression in place as prescribed Yes Has offloadiing in place as prescribed No Experienced any changes in pain level or No management Left Footwear Regular Shoe Right Footwear Regular Shoe Pain Scale: 0-10 Numeric Is Patient Pain Free? Yes - Nurse 1 - General Ulcer Measurement Start: 12/08/21 09:03 Freq: Status: Active Protocol: Activity Type Activity Date Activity User E-Sign Co-Sign Detail Recorded Client Recorded Date Recorded By Document 12/08/21 09:04 TRIPP [id number] 12/08/21 09:16 TRIPP 12/08/21 09:04 Wound Center Nurse 1 #12 Medial Superior LLE -Combined with other wound No -Current Size (cm) - Length 5 -Current Size (cm) - Width 4.1 -Current Size (cm) - Depth 0.1 -Total Square Cm 20.5 -Tunneling No -Undermining/Tunneling No -Circular Undermining No -Exudate Amt Large -Exudate Type Serosanguineous -Wound Margin Thickened & Rolled Under -Granulation Amt Large (67-100%) -Granulation Quality [place] -Slough/Fibrin Yes -Necrosis Amt Large (67-100%) -Necrotic Tissue Type Adherent Slough -Structure Exposed N/A -Texture (Ara-wound Skin Appearance) Not Assessed, Callus -Moisture (Ara-wound Skin Appearance) Assessed -Color (Ara-wound Skin Appearance) Assessed -Temperature (Ara-wound Skin No Abnormality Appearance) (Pt Warm) -Tenderness on Palpation (Ara-wound No Skin Appearance) -Ulcer Cleansing Wound Cleanser -Foul Odor after Cleansing No -Anesthetic Used 4% Lidocaine Solution #11 Medial Inferior LLE -Current Size (cm) - Length 1.2 -Current Size (cm) - Width 1.2 -Current Size (cm) - Depth 0.1 -Total Square Cm 1.44 -Tunneling No -Undermining/Tunneling No -Circular Undermining No -Exudate Amt Large -Exudate Type Serosanguineous -Wound Margin Thickened & Rolled Under -Granulation Amt Medium (34-66%) -Granulation Quality [place] -Slough/Fibrin Yes -Necrosis Amt Small (1-33%) -Necrotic Tissue Type Adherent Slough -Structure Exposed N/A -Texture (Ara-wound Skin Appearance) Assessed -Moisture (Ara-wound Skin Appearance) Assessed -Color (Ara-wound Skin Appearance) Assessed -Temperature (Ara-wound Skin No Abnormality Appearance) (Pt Warm) -Tenderness on Palpation (Ara-wound No Skin Appearance) -Ulcer Cleansing Wound Cleanser -Foul Odor after Cleansing No -Anesthetic Used 4% Lidocaine Solution #10 Left Medial Ankle -Combined with other wound No -Current Size (cm) - Length 6 -Current Size (cm) - Width 5.5 -Current Size (cm) - Depth 0.3 -Total Square Cm 33.0 -Tunneling No -Undermining/Tunneling No -Circular Undermining No -Exudate Amt Large -Exudate Type Serosanguineous -Wound Margin Thickened & Rolled Under -Granulation Amt Medium (34-66%) -Granulation Quality [place] -Slough/Fibrin Yes -Necrosis Amt Small (1-33%) -Necrotic Tissue Type Adherent Slough -Structure Exposed N/A -Texture (Ara-wound Skin Appearance) Assessed -Moisture (Ara-wound Skin Appearance) Dry/Scaly -Color (Ara-wound Skin Appearance) Assessed -Temperature (Ara-wound Skin No Abnormality Appearance) (Pt Warm) -Tenderness on Palpation (Ara-wound No Skin Appearance) -Ulcer Cleansing Wound Cleanser -Foul Odor after Cleansing No -Anesthetic Used 4% Lidocaine Solution Lower Limb Edema Present Yes Left Calf (cm) 36.4 Left Ankle (cm) 22.5 WC - Nurse 2 - General Ulcer CM Notes Start: 12/08/21 09:03 Freq: Status: Active Protocol: Activity Type Activity Date Activity User E-Sign Co-Sign Detail Recorded Client Recorded Date Recorded By Document 12/08/21 09:24 MW [id number] 12/08/21 09:35 MW 12/08/21 09:24 Wound Center Nurse 2 #12 Medial Superior LLE -Time 09:25 -Correct Patient Yes -Correct Side, Site, Position Yes -Correct Procedure Yes -Procedure Performed Yes -Type of Procedure Debridement -Clinical Debridement Subcutaneous -Tissue Removed Subcutaneous -Post Debridement (cm) - Length 1.4 -Post Debridement (cm) - Width 1.4 -Post Debridement (cm) - Depth 0.1 -Total Square (Post) (cm) 1.96 -Area of Debridement (cm) - Length 1.4 -Area of Debridement (cm) - Width 1.4 -Total Square (Area) (cm) 1.96 -Tunneling No -Undermining/Tunneling No -Circular Undermining No -Wound/Ulcer Outcome Not Healed -Ulcer Cleansing Rinsed/ Irrigated with Saline -Foul Odor after Cleansing No -Bioengineered Tissue No -Bleeding Controlled with Pressure -Offloading No -Treatment Response Procedure Tolerated Well -Debridement - Subq, 1st 20sq cm Yes #11 Medial Inferior LLE -Time 09:25 -Correct Patient Yes -Correct Side, Site, Position Yes -Correct Procedure Yes -Procedure Performed Yes -Type of Procedure Debridement -Clinical Debridement Subcutaneous -Tissue Removed Subcutaneous -Post Debridement (cm) - Length 4.0 -Post Debridement (cm) - Width 4.5 -Post Debridement (cm) - Depth 0.1 -Total Square (Post) (cm) 18.00 -Area of Debridement (cm) - Length 4.0 -Area of Debridement (cm) - Width 4.5 -Total Square (Area) (cm) 18.00 -Tunneling No -Undermining/Tunneling No -Circular Undermining No -Wound/Ulcer Outcome Not Healed -Ulcer Cleansing Rinsed/ Irrigated with Saline -Foul Odor after Cleansing No -Bioengineered Tissue No -Bleeding Controlled with Pressure -Offloading No -Treatment Response Procedure Tolerated Well -Debridement - Subq, 1st 20sq cm No #10 Left Medial Ankle -Time 09:26 -Correct Patient Yes -Correct Side, Site, Position Yes -Correct Procedure Yes -Procedure Performed Yes -Type of Procedure Debridement -Clinical Debridement Subcutaneous -Tissue Removed Subcutaneous -Post Debridement (cm) - Length 4.5 -Post Debridement (cm) - Width 4.0 -Post Debridement (cm) - Depth 0.2 -Total Square (Post) (cm) 18.00 -Area of Debridement (cm) - Length 4.5 -Area of Debridement (cm) - Width 4.0 -Total Square (Area) (cm) 18.00 -Tunneling No -Undermining/Tunneling No -Circular Undermining No -Wound/Ulcer Outcome Not Healed -Ulcer Cleansing Rinsed/ Irrigated with Saline -Foul Odor after Cleansing No -Bioengineered Tissue No -Bleeding Controlled with Pressure -Offloading No -Treatment Response Procedure Tolerated Well -Debridement - Subq, 1st 20sq cm No Pain Scale: 0-10 Numeric Is Patient Pain Free? Yes WC - Nurse 3 - General Ulcer D/C NN Start: 12/08/21 09:03 Freq: Status: Active Protocol: Activity Type Activity Date Activity User E-Sign Co-Sign Detail Recorded Client Recorded Date Recorded By Document 12/08/21 09:35 MW [id number] 12/08/21 09:37 MW 12/08/21 09:35 Wound Care Nurse 3 #12 Medial Superior LLE -Ulcer Cleansing Rinsed/ Irrigated with Saline -Foul Odor after Cleansing No -Negative Pressure Wound Therapy N/A -Other Dressing aquacel ag -Other Covering kerramx/ ABD #11 Medial Inferior LLE -Ulcer Cleansing Rinsed/ Irrigated with Saline -Foul Odor after Cleansing No -Negative Pressure Wound Therapy N/A -Other Dressing Aquacel AG -Other Covering Kerrmax/ ABD #10 Left Medial Ankle -Ulcer Cleansing Rinsed/ Irrigated with Saline -Foul Odor after Cleansing No -Negative Pressure Wound Therapy N/A -Other Dressing Aquacel AG -Other Covering Kerramax / ABD Left -Lotion applied to leg before No compression wrap -Stockings Yes Treatment Response Procedure Tolerated Well Pain Scale: 0-10 Numeric Is Patient Pain Free? Yes Teaching: Wound Center Dressing Your Wound -Person Taught Patient -Teaching Method Discussion -Response to teaching Verbalize understanding WC - Visit Discharge Discharge Condition Stable Ambulatory Status Ambulatory Transportation Private Auto Accompanied by self Medication Reconcilliation completed & No provided to patient/care provider Clinical Summary of Care Provided Yes Additional Wound Wound debrided: Left lower extremity inferior Type of Debridement: Excisional debridement Anesthesia Used: 4% Lidocaine Solution Depth: Down to and including healthy tissue and in the subcutaneous layer Percentage of wound debrided: 100 Instrument Used: 5mm curette Tissue Removed: Slough and devitalized tissue Severity: Fat Layer Exposed Amount of bleeding with debridement: Mild Bleeding Controlled with: Pressure Patient tolerated procedure: Patient tolerated procedure well Additional Wound Wound debrided: Left lower extremity superior Type of Debridement: Excisional debridement Anesthesia Used: 4% Lidocaine Solution Depth: Down to and including healthy tissue and in the subcutaneous layer Percentage of wound debrided: 100 Tissue Removed: Slough and devitalized tissue Severity: Fat Layer Exposed Amount of bleeding with debridement: Mild Bleeding Controlled with: Pressure Patient tolerated procedure: Patient tolerated procedure well Assessment/Plan Assessment/Plan (1) Ulcer of left lower extremity with fat layer exposed: CODE(S): L97.922 - Non-pressure chronic ulcer of unspecified part of left lower leg with fat layer exposed (2) PVD (peripheral vascular disease): CODE(S): I73.9 - Peripheral vascular disease, unspecified (3) Chronic venous insufficiency: CODE(S): I87.2 - Venous insufficiency (chronic) (peripheral) (4) Delayed wound healing: CODE(S): T14.8XXD - Other injury of unspecified body region, subsequent encounter PLAN: Debridement done as documented above, procedure was well-tolerated. Some improvement noted this week. Continue Aquacel silver and care max care to all ulcers, change daily to twice daily depending on drainage. Continue use of compression stockings, leg elevation and exercise. Increased protein intake, protein supplements, zinc and vitamin C also recommended. Continue doxycycline for antibiotic prophylaxis due to MRSA colonization. Due to reported increased drainage from his left medial ankle ulcer, will treat with clindamycin for 5 days. Hold doxycycline while on clindamycin and resume afterwards. His questions were answered and was advised to call with any further questions or concerns. Follow-up in 2 weeks. This note was generated with [employer] dictation software. It may contain incorrect words, spelling, and punctuation that were not noted in checking the note before signing.
[2021-12-22 09:03] VITALS: BP 149/85; PULSE 84; RESP 18; TEMP 36.1; BMI 31.4
--- NOTE | 2021-12-22 09:36 | PCM.WC.PN ---
History of Present Illness Date of Service: 12/22/21 Chief Complaint: ulcers to the left lower leg History of Wound: This is a 54-year-old male presents to wound healing center with a long-standing history of chronic venous insufficiency, chronic venous hypertension, lower extremity edema, lower extremity pain, and chronic left lower extremity ulcer. 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 He is currently wearing graduated compression stockings which are documented to be 20-30 mmHg compression and these are thigh high. He reports great compliance with use. He is also had previous arterial work-up with no intervention recommended by letter, his vascular surgeon. He denies taking nutritional supplementation. He saw dermatology and had a biopsy of the ulcer site. He also was previously treated by infectious disease for various contaminations and infections. He is not antibiotics at this time nor does he have any redness or odor coming from the wound. He denies fever, chill, nausea, vomiting, loss of appetite. Progress of Wound: Overall stable. Left upper extremity ulcer is improving. Subjective Subjective No new concerns at this time. Objective Data Objective Data Vital Signs: Vital Signs Temp Pulse Resp BP Pulse Ox 96.9 F L 84 18 149/85 H 99 12/22/21 09:03 12/22/21 09:03 12/22/21 09:03 12/22/21 09:03 12/08/21 09:04 Body Mass Index (BMI) 31.4 Charges/Coding Procedures Integumentary 111xxx-113xx: 21821 Lakeisha subq tissue 20 sq cm/< Add On Codes: 56407 Lakeisha subq tissue add-on Physical Exam Const alert, oriented x3 and no apparent distress General Appearance: cooperative and comfortable Orientation / Consciousness: awake HEENT normocephalic Head and Scalp: normal to inspection, normocephalic and atraumatic Face and Sinus: normal facial exam Eyes EOMs intact bilaterally Neck full ROM and supple General: normal visual inspection Resp normal respiratory effort Effort and Inspection: able to speak in complete sentences GI non-tender Extremity normal to inspection General Extremity: edema Skin Wounds: wounds noted Neuro oriented x3 and CN's II-XII intact bilaterally Psych mental status grossly normal Appearance: grossly normal Debridement Note Debridement Note Wound debrided: Left medial ankle Type of Debridement: Excisional debridement Anesthesia Used: 4% Lidocaine Solution Depth: Down to and including healthy tissue and in the subcutaneous layer Percentage of wound debrided: 100 Instrument Used: 5mm curette Tissue Removed: Slough and devitalized tissue Severity: Fat Layer Exposed Amount of bleeding with debridement: Mild Bleeding Controlled with: Pressure Patient tolerated procedure: Patient tolerated procedure well Post-Debridement Measurements and Additional Note: Post-Debridement Measurements/Treatment - Nurse 1 - General Ulcer Assessment Start: 12/08/21 09:03 Freq: Status: Active Protocol: SHANTA Activity Type Activity Date Activity User E-Sign Co-Sign Detail Recorded Client Recorded Date Recorded By Document 12/08/21 09:04 RB [id number] 12/08/21 09:16 RB Document 12/22/21 09:03 DL [id number] 12/22/21 09:13 DL 12/08/21 12/22/21 09:04 09:03 - Today's Visit Information Type of service Follow-up Visit Follow-up Visit (Physician/CLINICAL PROJECT COORDINATOR (Physician/CLINICAL PROJECT COORDINATOR ) ) Arrival Mode Ambulatory Ambulatory Transfer Assistance None None Patient Identification Verified (Name & Yes Yes ) Patient Requires Transmission-Based No Precautions Height and Weight Body Mass Index (BMI) 31.4 31.4 BMI Classification Obese Obese Vital Signs Temperature (97.8 F-99.1 F) 97.7 F L 96.9 F L Temperature Source Temporal Temporal Pulse Rate (60-100) 99 84 Pulse Location Monitor Apical Respiratory Rate (12-18) 18 18 Respiratory rate source Observation Pulse Oximetry 99 Blood Pressure (90/60-120/80) 138/76 H 149/85 H Blood Pressure Mean (mm Hg) 96 106 Source Monitor Monitor Position Semi-Fowlers Blood Pressure Location Left Arm History Since Last Visit- (Skip if this is Patient's initial visit) Have you changed medications since your No No last visit? Any new allergies or adverse reactions No No Had a fall/change in ADL's that may No increase risk of falls Signs or symptoms of abuse and/or No No neglect since last visit Have you been in the hospital since your No last visit? Has dressing in place as prescribed Yes Yes Has compression in place as prescribed Yes Yes Has offloadiing in place as prescribed No N/A Experienced any changes in pain level or No No management Left Footwear Regular Shoe Right Footwear Regular Shoe Pain Scale: 0-10 Numeric Is Patient Pain Free? Yes Yes WC - Nurse 1 - General Ulcer Measurement Start: 12/08/21 09:03 Freq: Status: Active Protocol: Activity Type Activity Date Activity User E-Sign Co-Sign Detail Recorded Client Recorded Date Recorded By Document 12/08/21 09:04 RB [id number] 12/08/21 09:16 RB Document 12/22/21 09:03 DL [id number] 12/22/21 09:13 DL 12/08/21 12/22/21 09:04 09:03 Wound Center Nurse 1 #12 Medial Superior LLE -Combined with other wound No -Current Size (cm) - Length 5 1.1 -Current Size (cm) - Width 4.1 1.1 -Current Size (cm) - Depth 0.1 0.2 -Total Square Cm 20.5 1.21 -Photo Taken No -Tunneling No -Undermining/Tunneling No -Circular Undermining No -Exudate Amt Large Medium -Exudate Type Serosanguineous Serosanguineous -Wound Margin Thickened & Fibrotic Scar, Rolled Under Thickened Scar -Granulation Amt Large (67-100%) Large (67-100%) -Granulation Quality [place] Red -Slough/Fibrin Yes -Necrosis Amt Large (67-100%) Small (1-33%) -Necrotic Tissue Type Adherent Slough Adherent Slough -Structure Exposed N/A -Texture (Ara-wound Skin Appearance) Not Assessed, Scarring Callus -Moisture (Ara-wound Skin Appearance) Assessed Dry/Scaly -Color (Ara-wound Skin Appearance) Assessed Hemosiderin Staining -Temperature (Ara-wound Skin No Abnormality No Abnormality Appearance) (Pt Warm) (Pt Warm) -Tenderness on Palpation (Ara-wound No Skin Appearance) -Ulcer Cleansing Wound Cleanser Soap and Water -Foul Odor after Cleansing No No -Anesthetic Used 4% Lidocaine 5% Lidocaine Solution Gel #11 Medial Inferior LLE -Current Size (cm) - Length 1.2 5.1 -Current Size (cm) - Width 1.2 3.8 -Current Size (cm) - Depth 0.1 0.2 -Total Square Cm 1.44 19.38 -Photo Taken No -Tunneling No -Undermining/Tunneling No -Circular Undermining No -Exudate Amt Large Medium -Exudate Type Serosanguineous Serosanguineous -Wound Margin Thickened & Distinct, Rolled Under Outline Attached -Granulation Amt Medium (34-66%) Medium (34-66%) -Granulation Quality [place] Red -Slough/Fibrin Yes -Necrosis Amt Small (1-33%) Medium (34-66%) -Necrotic Tissue Type Adherent Slough Adherent Slough -Structure Exposed N/A N/A -Texture (Ara-wound Skin Appearance) Assessed Scarring -Moisture (Ara-wound Skin Appearance) Assessed Dry/Scaly -Color (Ara-wound Skin Appearance) Assessed Hemosiderin Staining -Temperature (Ara-wound Skin No Abnormality No Abnormality Appearance) (Pt Warm) (Pt Warm) -Tenderness on Palpation (Ara-wound No No Skin Appearance) -Ulcer Cleansing Wound Cleanser Soap and Water -Foul Odor after Cleansing No No -Anesthetic Used 4% Lidocaine 5% Lidocaine Solution Gel #10 Left Medial Ankle -Combined with other wound No -Current Size (cm) - Length 6 5.3 -Current Size (cm) - Width 5.5 5.5 -Current Size (cm) - Depth 0.3 0.3 -Total Square Cm 33.0 29.15 -Photo Taken No -Tunneling No -Undermining/Tunneling No -Circular Undermining No -Exudate Amt Large Medium -Exudate Type Serosanguineous Serosanguineous -Wound Margin Thickened & Distinct, Rolled Under Outline Attached -Granulation Amt Medium (34-66%) Medium (34-66%) -Granulation Quality [place] Red -Slough/Fibrin Yes -Necrosis Amt Small (1-33%) Medium (34-66%) -Necrotic Tissue Type Adherent Slough Adherent Slough -Structure Exposed N/A -Texture (Ara-wound Skin Appearance) Assessed Scarring -Moisture (Ara-wound Skin Appearance) Dry/Scaly Dry/Scaly -Color (Ara-wound Skin Appearance) Assessed Hemosiderin Staining -Temperature (Ara-wound Skin No Abnormality No Abnormality Appearance) (Pt Warm) (Pt Warm) -Tenderness on Palpation (Ara-wound No Skin Appearance) -Ulcer Cleansing Wound Cleanser Soap and Water -Foul Odor after Cleansing No No -Anesthetic Used 4% Lidocaine 5% Lidocaine Solution Gel Lower Limb Edema Present Yes Left Calf (cm) 36.4 34.5 Left Ankle (cm) 22.5 23.5 WC - Nurse 2 - General Ulcer CM Notes Start: 12/08/21 09:03 Freq: Status: Active Protocol: Activity Type Activity Date Activity User E-Sign Co-Sign Detail Recorded Client Recorded Date Recorded By Document 12/08/21 09:24 MW [id number] 12/08/21 09:35 MW Edit Result 12/08/21 09:24 MW (1) [id number] 12/09/21 07:09 PL Document 12/22/21 09:22 MW [id number] 12/22/21 09:30 MW (1) #12 Medial Superior LLE - Debridement, SubQ, ea addt'l 20sq cm => 1 or part thereof 12/08/21 12/22/21 09:24 09:22 Wound Center Nurse 2 #12 Medial Superior LLE -Time 09: 09:22 -Correct Patient Yes Yes -Correct Side, Site, Position Yes Yes -Correct Procedure Yes -Procedure Performed Yes Yes -Type of Procedure Debridement Debridement -Clinical Debridement Subcutaneous Subcutaneous -Tissue Removed Subcutaneous Subcutaneous -Post Debridement (cm) - Length 1.4 1.1 -Post Debridement (cm) - Width 1.4 1.1 -Post Debridement (cm) - Depth 0.1 0.1 -Total Square (Post) (cm) 1.96 1.21 -Area of Debridement (cm) - Length 1.4 1.1 -Area of Debridement (cm) - Width 1.4 1.1 -Total Square (Area) (cm) 1.96 1.21 -Tunneling No No -Undermining/Tunneling No No -Circular Undermining No No -Wound/Ulcer Outcome Not Healed Not Healed -Ulcer Cleansing Rinsed/ Rinsed/ Irrigated with Irrigated with Saline Saline -Foul Odor after Cleansing No No -Bioengineered Tissue No No -Bleeding Controlled with Pressure Pressure -Offloading No No -Treatment Response Procedure Procedure Tolerated Well Tolerated Well -Debridement - Subq, 1st 20sq cm Yes Yes -Debridement, SubQ, ea addt'l 20sq cm 1 1 or part thereof #11 Medial Inferior LLE -Time :25 09:23 -Correct Patient Yes Yes -Correct Side, Site, Position Yes Yes -Correct Procedure Yes Yes -Procedure Performed Yes Yes -Type of Procedure Debridement Debridement -Clinical Debridement Subcutaneous Subcutaneous -Tissue Removed Subcutaneous Subcutaneous -Post Debridement (cm) - Length 4.0 3.3 -Post Debridement (cm) - Width 4.5 4.2 -Post Debridement (cm) - Depth 0.1 0.1 -Total Square (Post) (cm) 18.00 13.86 -Area of Debridement (cm) - Length 4.0 3.3 -Area of Debridement (cm) - Width 4.5 4.2 -Total Square (Area) (cm) 18.00 13.86 -Tunneling No No -Undermining/Tunneling No No -Circular Undermining No No -Wound/Ulcer Outcome Not Healed Not Healed -Ulcer Cleansing Rinsed/ Rinsed/ Irrigated with Irrigated with Saline Saline -Foul Odor after Cleansing No No -Bioengineered Tissue No No -Bleeding Controlled with Pressure Pressure -Offloading No No -Treatment Response Procedure Procedure Tolerated Well Tolerated Well -Debridement - Subq, 1st 20sq cm No No #10 Left Medial Ankle -Time 09: 09:23 -Correct Patient Yes Yes -Correct Side, Site, Position Yes Yes -Correct Procedure Yes Yes -Procedure Performed Yes Yes -Type of Procedure Debridement Debridement -Clinical Debridement Subcutaneous Subcutaneous -Tissue Removed Subcutaneous Subcutaneous -Post Debridement (cm) - Length 4.5 4.5 -Post Debridement (cm) - Width 4.0 4.0 -Post Debridement (cm) - Depth 0.2 0.2 -Total Square (Post) (cm) 18.00 18.00 -Area of Debridement (cm) - Length 4.5 4.5 -Area of Debridement (cm) - Width 4.0 4.0 -Total Square (Area) (cm) 18.00 18.00 -Tunneling No No -Undermining/Tunneling No No -Circular Undermining No No -Wound/Ulcer Outcome Not Healed Not Healed -Ulcer Cleansing Rinsed/ Rinsed/ Irrigated with Irrigated with Saline Saline -Foul Odor after Cleansing No No -Bioengineered Tissue No No -Bleeding Controlled with Pressure Pressure -Offloading No No -Treatment Response Procedure Procedure Tolerated Well Tolerated Well -Debridement - Subq, 1st 20sq cm No No Pain Scale: 0-10 Numeric Is Patient Pain Free? Yes Yes WC - Nurse 3 - General Ulcer D/C NN Start: 12/08/21 09:03 Freq: Status: Active Protocol: Activity Type Activity Date Activity User E-Sign Co-Sign Detail Recorded Client Recorded Date Recorded By Document 12/08/21 09:35 MW [id number] 12/08/21 09:37 MW Document 12/22/21 09:31 MW [id number] 12/22/21 09:32 MW 12/08/21 12/22/21 09:35 09:31 Wound Care Nurse 3 #12 Medial Superior LLE -Ulcer Cleansing Rinsed/ Wound Cleanser Irrigated with Saline -Foul Odor after Cleansing No No -Negative Pressure Wound Therapy N/A N/A -Other Dressing aquacel ag AQUACEL AG -Other Covering kerramx/ ABD ABD, KERRAMAX [facility] #11 Medial Inferior LLE -Ulcer Cleansing Rinsed/ Rinsed/ Irrigated with Irrigated with Saline Saline -Foul Odor after Cleansing No No -Negative Pressure Wound Therapy N/A N/A -Other Dressing Aquacel AG AQUACEL AG -Other Covering Kerrmax/ ABD ABD, [facility]ERRAMAX [facility] #10 Left Medial Ankle -Ulcer Cleansing Rinsed/ Rinsed/ Irrigated with Irrigated with Saline Saline -Foul Odor after Cleansing No No -Negative Pressure Wound Therapy N/A N/A -Other Dressing Aquacel AG AQUACEL AG -Other Covering Kerramax / ABD ABD, [facility]ERRAM[facility] C[facility] Left -Lotion applied to leg before No No compression wrap -Stockings Yes Yes Treatment Response Procedure Procedure Tolerated Well Tolerated Well Pain Scale: 0-10 Numeric Is Patient Pain Free? Yes Yes Teaching: Wound Center Dressing Your Wound -Person Taught Patient Patient -Teaching Method Discussion Discussion -Response to teaching Verbalize Verbalize understanding understanding WC - Visit Discharge Discharge Condition Stable Stable Ambulatory Status Ambulatory Ambulatory Transportation Private Auto Private Auto Accompanied by self SELF Medication Reconcilliation completed & No No provided to patient/care provider Clinical Summary of Care Provided Yes Yes Additional Wound Wound debrided: Left lower extremity ( Inferior ) Type of Debridement: Excisional debridement Anesthesia Used: 4% Lidocaine Solution Depth: Down to and including healthy tissue and in the subcutaneous layer Percentage of wound debrided: 100 Instrument Used: 5mm curette Tissue Removed: Slough and devitalized tissue Severity: Fat Layer Exposed Amount of bleeding with debridement: Mild Bleeding Controlled with: Pressure Patient tolerated procedure: Patient tolerated procedure well Additional Wound Wound debrided: Left lower extremity ( Superior ) Type of Debridement: Excisional debridement Anesthesia Used: 4% Lidocaine Solution Depth: Down to and including healthy tissue and in the subcutaneous layer Percentage of wound debrided: 100 Instrument Used: 5mm curette Tissue Removed: Slough and devitalized tissue Severity: Fat Layer Exposed Amount of bleeding with debridement: Mild Bleeding Controlled with: Pressure Patient tolerated procedure: Patient tolerated procedure well Assessment/Plan Assessment/Plan (1) Ulcer of left lower extremity with fat layer exposed: CODE(S): L97.922 - Non-pressure chronic ulcer of unspecified part of left lower leg with fat layer exposed (2) PVD (peripheral vascular disease): CODE(S): I73.9 - Peripheral vascular disease, unspecified (3) Chronic venous insufficiency: CODE(S): I87.2 - Venous insufficiency (chronic) (peripheral) (4) Delayed wound healing: CODE(S): T14.8XXD - Other injury of unspecified body region, subsequent encounter PLAN: Debridement done as documented above, procedure was well-tolerated. Some improvement noted this week. Continue Aquacel silver and care max care to all ulcers, change daily to twice daily depending on drainage. Continue use of compression stockings, leg elevation and exercise. Increased protein intake, protein supplements, zinc and vitamin C also recommended. Continue doxycycline for antibiotic prophylaxis due to MRSA colonization. New referral placed to Vascular surgery. Had seen Dr Cade in the past but not lately. We also discussed the possibility for Plastic surgery referral for graft closure. His questions were answered and was advised to call with any further questions or concerns. Follow-up in 2 weeks. This note was generated with [employer] dictation software. It may contain incorrect words, spelling, and punctuation that were not noted in checking the note before signing.
== END 2021-12-26 23:59 ==
LOC: WC 09:00
PROVIDERS: Visit Provider Internal Medicine
DX: I73.9 Peripheral vascular disease, unspecified (principal); L97.322 Non-pressure chronic ulcer of left ankle with fat layer exposed; I87.2 Venous insufficiency (chronic) (peripheral); R60.0 Localized edema
CPT/HCPCS: 11042; 11045

== ENCOUNTER 2022-01-19 09:00 | Outpatient (RCR) | payer BC, SELFPAY ==
[2021-12-27 00:26] VITALS: BP 149/85; PULSE 84; RESP 18; TEMP 36.1; O2SAT 99; BMI 31.4
[2022-01-05 09:04] VITALS: BP 143/89; PULSE 84; RESP 18; TEMP 35.9; BMI 31.4
--- NOTE | 2022-01-05 09:47 | PCM.WC.PN ---
History of Present Illness Date of Service: 01/05/22 Chief Complaint: ulcers to the left lower leg History of Wound: This is a 54-year-old male presents to wound healing center with a long-standing history of chronic venous insufficiency, chronic venous hypertension, lower extremity edema, lower extremity pain, and chronic left lower extremity ulcer. 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 He is currently wearing graduated compression stockings which are documented to be 20-30 mmHg compression and these are thigh high. He reports great compliance with use. He is also had previous arterial work-up with no intervention recommended by letter, his vascular surgeon. He denies taking nutritional supplementation. He saw dermatology and had a biopsy of the ulcer site. He also was previously treated by infectious disease for various contaminations and infections. He is not antibiotics at this time nor does he have any redness or odor coming from the wound. He denies fever, chill, nausea, vomiting, loss of appetite. Progress of Wound: Stable. He was referred to vascular surgery whom he had seen in the past but he states that he has not scheduled this appointment. He states that he has been doing dressing changes as discussed. Subjective Subjective No new concerns at this time Objective Data Objective Data Vital Signs: Vital Signs Temp Pulse Resp BP Pulse Ox 96.7 F L 84 18 143/89 H 99 01/05/22 09:04 01/05/22 09:04 01/05/22 09:04 01/05/22 09:04 12/27/21 00:26 Body Mass Index (BMI) 31.4 Charges/Coding Procedures Integumentary 111xxx-113xx: 67893 Lakeisha subq tissue 20 sq cm/< Add On Codes: 84505 Lakeisha subq tissue add-on (x1 additional square centimeter debrided, please refer to clinical note) Physical Exam Const alert, oriented x3 and no apparent distress General Appearance: cooperative and comfortable Orientation / Consciousness: awake HEENT normocephalic Head and Scalp: normal to inspection, normocephalic and atraumatic Face and Sinus: normal facial exam Eyes EOMs intact bilaterally Neck full ROM and supple General: normal visual inspection Resp normal respiratory effort Effort and Inspection: able to speak in complete sentences GI non-tender Extremity normal to inspection General Extremity: edema Skin Wounds: wounds noted Neuro oriented x3 and CN's II-XII intact bilaterally Psych mental status grossly normal Appearance: grossly normal Debridement Note Debridement Note Wound debrided: Left lower extremity (medial ankle) Type of Debridement: Excisional debridement Depth: Down to and including healthy tissue and in the subcutaneous layer Percentage of wound debrided: 100 Instrument Used: 5mm curette Tissue Removed: Slough and devitalized tissue Severity: Fat Layer Exposed Amount of bleeding with debridement: Mild Bleeding Controlled with: Pressure Patient tolerated procedure: Patient tolerated procedure well Post-Debridement Measurements and Additional Note: Post-Debridement Measurements/Treatment WC - Nurse 1 - General Ulcer Assessment Start: 01/05/22 09:04 Freq: Status: Active Protocol: SHANTA Activity Type Activity Date Activity User E-Sign Co-Sign Detail Recorded Client Recorded Date Recorded By Document 01/05/22 09:04 DL [id number] 01/05/22 09:14 DL 01/05/22 09:04 WC - Today's Visit Information Type of service Follow-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 Any new allergies or adverse reactions No Had a fall/change in ADL's that may No increase risk of falls Signs or symptoms of abuse and/or No neglect since last visit Have you been in the hospital since your Yes last visit? Has dressing in place as prescribed Yes Has compression in place as prescribed Yes Has offloadiing in place as prescribed Yes Experienced any changes in pain level or No management Pain Scale: 0-10 Numeric Is Patient Pain Free? Yes KIMBERLY - Nurse 1 - General Ulcer Measurement Start: 01/05/22 09:04 Freq: Status: Active Protocol: Activity Type Activity Date Activity User E-Sign Co-Sign Detail Recorded Client Recorded Date Recorded By Document 01/05/22 09:04 TIFFANY [id number] 01/05/22 09:14 DL 01/05/22 09:04 Wound Center Nurse 1 #12 Medial Superior LLE -Current Size (cm) - Length 1.4 -Current Size (cm) - Width 1.4 -Current Size (cm) - Depth 0.2 -Total Square Cm 1.96 -Photo Taken No -Exudate Amt Small -Exudate Type Serosanguineous -Wound Margin Distinct, Outline Attached -Granulation Amt Large (67-100%) -Granulation Quality Red -Necrosis Amt Small (1-33%) -Necrotic Tissue Type Adherent Slough -Structure Exposed N/A -Texture (Ara-wound Skin Appearance) Scarring -Moisture (Ara-wound Skin Appearance) Dry/Scaly -Color (Ara-wound Skin Appearance) Hemosiderin Staining -Temperature (Ara-wound Skin No Abnormality Appearance) (Pt Warm) -Tenderness on Palpation (Ara-wound No Skin Appearance) -Ulcer Cleansing Not Cleansed -Foul Odor after Cleansing No -Anesthetic Used 4% Lidocaine Solution #11 Medial Inferior LLE -Current Size (cm) - Length 5 -Current Size (cm) - Width 3.7 -Current Size (cm) - Depth 0.2 -Total Square Cm 18.5 -Photo Taken No -Exudate Amt Small -Exudate Type Serosanguineous -Wound Margin Distinct, Outline Attached -Granulation Amt Large (67-100%) -Granulation Quality Red -Necrosis Amt Small (1-33%) -Necrotic Tissue Type Adherent Slough -Texture (Ara-wound Skin Appearance) Scarring -Moisture (Ara-wound Skin Appearance) Dry/Scaly -Color (Ara-wound Skin Appearance) Hemosiderin Staining -Temperature (Ara-wound Skin No Abnormality Appearance) (Pt Warm) -Ulcer Cleansing Soap and Water -Foul Odor after Cleansing No -Anesthetic Used 4% Lidocaine Solution #10 Left Medial Ankle -Current Size (cm) - Length 5.2 -Current Size (cm) - Width 5.6 -Current Size (cm) - Depth 0.3 -Total Square Cm 29.12 -Photo Taken No -Exudate Amt Small -Exudate Type Serosanguineous -Wound Margin Thickened -Granulation Amt Medium (34-66%) -Granulation Quality Red -Necrosis Amt Medium (34-66%) -Necrotic Tissue Type Adherent Slough -Texture (Ara-wound Skin Appearance) Scarring -Moisture (Ara-wound Skin Appearance) Dry/Scaly -Color (Ara-wound Skin Appearance) Hemosiderin Staining -Temperature (Ara-wound Skin No Abnormality Appearance) (Pt Warm) -Tenderness on Palpation (Ara-wound No Skin Appearance) -Ulcer Cleansing Soap and Water -Foul Odor after Cleansing No -Anesthetic Used 4% Lidocaine Solution Right Calf (cm) 33.6 Right Ankle (cm) 23.4 WC - Nurse 2 - General Ulcer CM Notes Start: 01/05/22 09:04 Freq: Status: Active Protocol: Activity Type Activity Date Activity User E-Sign Co-Sign Detail Recorded Client Recorded Date Recorded By Document 01/05/22 09:19 MW [id number] 01/05/22 09:31 MW 01/05/22 09:19 Wound Center Nurse 2 #12 Medial Superior LLE -Time 09:19 -Correct Patient Yes -Correct Side, Site, Position Yes -Correct Procedure Yes -Procedure Performed Yes -Type of Procedure Incision & Drainage -Clinical Debridement Subcutaneous -Tissue Removed Subcutaneous -Post Debridement (cm) - Length 4.5 -Post Debridement (cm) - Width 4.0 -Post Debridement (cm) - Depth 0.2 -Total Square (Post) (cm) 18.00 -Area of Debridement (cm) - Length 4.5 -Area of Debridement (cm) - Width 4.0 -Total Square (Area) (cm) 18.00 -Tunneling No -Undermining/Tunneling No -Circular Undermining No -Wound/Ulcer Outcome Not Healed -Ulcer Cleansing Rinsed/ Irrigated with Saline -Foul Odor after Cleansing No -Bioengineered Tissue No -Bleeding Controlled with Pressure -Offloading No -Treatment Response Procedure Tolerated Well -Debridement - Subq, 1st 20sq cm Yes #11 Medial Inferior LLE -Time 09:19 -Correct Patient Yes -Correct Side, Site, Position Yes -Correct Procedure Yes -Procedure Performed Yes -Type of Procedure Debridement -Clinical Debridement Subcutaneous -Tissue Removed Subcutaneous -Post Debridement (cm) - Length 3.5 -Post Debridement (cm) - Width 3.5 -Post Debridement (cm) - Depth 0.1 -Total Square (Post) (cm) 12.25 -Area of Debridement (cm) - Length 3.5 -Area of Debridement (cm) - Width 3.5 -Total Square (Area) (cm) 12.25 -Tunneling No -Undermining/Tunneling No -Circular Undermining No -Wound/Ulcer Outcome Not Healed -Ulcer Cleansing Rinsed/ Irrigated with Saline -Foul Odor after Cleansing No -Bioengineered Tissue No -Bleeding Controlled with Pressure -Offloading No -Treatment Response Procedure Tolerated Well -Debridement - Subq, 1st 20sq cm No #10 Left Medial Ankle -Time 09:19 -Correct Patient Yes -Correct Side, Site, Position Yes -Correct Procedure Yes -Procedure Performed Yes -Type of Procedure Debridement -Clinical Debridement Subcutaneous -Tissue Removed Subcutaneous -Post Debridement (cm) - Length 1.4 -Post Debridement (cm) - Width 1.4 -Post Debridement (cm) - Depth 0.1 -Total Square (Post) (cm) 1.96 -Area of Debridement (cm) - Length 1.4 -Area of Debridement (cm) - Width 1.4 -Total Square (Area) (cm) 1.96 -Tunneling No -Undermining/Tunneling No -Circular Undermining No -Wound/Ulcer Outcome Not Healed -Ulcer Cleansing Rinsed/ Irrigated with Saline -Foul Odor after Cleansing No -Bioengineered Tissue No -Bleeding Controlled with Pressure -Offloading No -Treatment Response Procedure Tolerated Well -Debridement - Subq, 1st 20sq cm No Pain Scale: 0-10 Numeric Is Patient Pain Free? Yes WC - Nurse 3 - General Ulcer D/C NN Start: 01/05/22 09:04 Freq: Status: Active Protocol: Activity Type Activity Date Activity User E-Sign Co-Sign Detail Recorded Client Recorded Date Recorded By Document 01/05/22 09:38 ID [id number] 01/05/22 09:40 ALFONSO 01/05/22 09:38 Wound Care Nurse 3 #12 Medial Superior LLE -Ulcer Cleansing Rinsed/ Irrigated with Saline -Foul Odor after Cleansing No -Negative Pressure Wound Therapy N/A -Primary Dressing Applied Aquacel AG 4x4 -Other Dressing ABD,keramax -Primary Dressing Covered/Secured with Secured with Tape -Aquacel AG 4x4 1 #11 Medial Inferior LLE -Ulcer Cleansing Rinsed/ Irrigated with Saline -Foul Odor after Cleansing No -Negative Pressure Wound Therapy N/A -Primary Dressing Applied Aquacel AG 4x4 -Aquacel AG 4x4 0 #10 Left Medial Ankle -Ulcer Cleansing Rinsed/ Irrigated with Saline -Foul Odor after Cleansing No -Negative Pressure Wound Therapy N/A -Primary Dressing Applied Aquacel AG 4x4 -Aquacel AG 4x4 0 Pain Scale: 0-10 Numeric Is Patient Pain Free? Yes WC - Visit Discharge Discharge Condition Stable Ambulatory Status Ambulatory Transportation Private Auto Medication Reconcilliation completed & Yes provided to patient/care provider Clinical Summary of Care Provided Yes Additional Wound Wound debrided: Left lower extremity (inferior) Type of Debridement: Excisional debridement Anesthesia Used: 4% Lidocaine Solution Depth: Down to and including healthy tissue and in the subcutaneous layer Percentage of wound debrided: 100 Instrument Used: 5mm curette Tissue Removed: Slough and devitalized tissue Severity: Fat Layer Exposed Amount of bleeding with debridement: Mild Bleeding Controlled with: Pressure Patient tolerated procedure: Patient tolerated procedure well Additional Wound Wound debrided: Left lower extremity (superior) Type of Debridement: Excisional debridement Anesthesia Used: 4% Lidocaine Solution Depth: Down to and including healthy tissue and in the subcutaneous layer Percentage of wound debrided: 100 Instrument Used: 5mm curette Tissue Removed: Slough and devitalized tissue Severity: Fat Layer Exposed Amount of bleeding with debridement: Mild Bleeding Controlled with: Pressure Patient tolerated procedure: Patient tolerated procedure well Assessment/Plan Assessment/Plan (1) Ulcer of left lower extremity with fat layer exposed: CODE(S): L97.922 - Non-pressure chronic ulcer of unspecified part of left lower leg with fat layer exposed (2) PVD (peripheral vascular disease): CODE(S): I73.9 - Peripheral vascular disease, unspecified (3) Chronic venous insufficiency: CODE(S): I87.2 - Venous insufficiency (chronic) (peripheral) (4) Delayed wound healing: CODE(S): T14.8XXD - Other injury of unspecified body region, subsequent encounter PLAN: Debridement done as documented above, procedure was well-tolerated. No significant change in the past week. Continue Aquacel silver and care max care to all ulcers, change daily to twice daily depending on drainage. Thought about using Hydrofera Blue however patient has apparently used this in the past. He has used pretty much all conventional and advanced wound care products without any significant improvement. Continue use of compression stockings, leg elevation and exercise. Increased protein intake, protein supplements, zinc and vitamin C also recommended. He was also advised to try an [id number] vitamins which may help with homocystinemia which has been implicated in delayed wound healing. Continue doxycycline for antibiotic prophylaxis due to MRSA colonization. Strongly advised to call and schedule with vascular surgery. We have also discussed the possibility for Plastic surgery referral for graft closure. His questions were answered and was advised to call with any further questions or concerns. Follow-up in 2 weeks. This note was generated with [employer] dictation software. It may contain incorrect words, spelling, and punctuation that were not noted in checking the note before signing.
[2022-01-19 09:00] VITALS: BP 160/81; PULSE 90; RESP 16; TEMP 36.6; BMI 31.4
--- NOTE | 2022-01-19 09:39 | PN.PCM_ITS ---
History of Present Illness Date of Service: 01/19/22 Chief Complaint: ulcers to the left lower leg History of Wound: This is a 54-year-old male presents to wound healing center with a long-standing history of chronic venous insufficiency, chronic venous hypertension, lower extremity edema, lower extremity pain, and chronic left lower extremity ulcer. The patient has previously undergone endovenous laser ablation of the left and right great saphenous vein, the small saphenous vein, the left accessory saphenous vein, and an incompetent left calf hematology technician vein located 15 cm proximal to the left medial malleolus. He is currently wearing graduated compression stockings which are documented to be 20-30 mmHg compression and these are thigh high. He reports great compliance with use. He is also had previous arterial work-up with no intervention recommended by letter, his vascular surgeon. He denies taking nutritional supplementation. He saw dermatology and had a biopsy of the ulcer site. He also was previously treated by infectious disease for various contaminations and infections. He is not antibiotics at this time nor does he have any redness or odor coming from the wound. He denies fever, chill, nausea, vomiting, loss of appetite. Progress of Wound: Ulcers look better. Better granulation tissue and less periwound crusting. States that he quit alcohol binging over the weekend. Has been taking some multivitamins as well. Subjective Subjective No new concerns at this time Objective Data Objective Data Vital Signs: Vital Signs Temp Pulse Resp BP Pulse Ox 97.8 F 90 16 160/81 H 99 01/19/22 09:00 01/19/22 09:00 01/19/22 09:00 01/19/22 09:00 12/27/21 00:26 Body Mass Index (BMI) 31.4 Charges/Coding Procedures Integumentary 111xxx-113xx: 82999 Lakeisha subq tissue 20 sq cm/< Add On Codes: 78233 Lakeisha subq tissue add-on (x1. Additional square centimeter debrided, please refer to clinical note) Physical Exam Const alert, oriented x3 and no apparent distress General Appearance: cooperative and comfortable Orientation / Consciousness: awake HEENT normocephalic Head and Scalp: normal to inspection, normocephalic and atraumatic Face and Sinus: normal facial exam Eyes EOMs intact bilaterally Neck full ROM and supple General: normal visual inspection Resp normal respiratory effort Effort and Inspection: able to speak in complete sentences GI non-tender Extremity normal to inspection General Extremity: edema Skin Wounds: wounds noted Neuro oriented x3 and CN's II-XII intact bilaterally Psych mental status grossly normal Appearance: grossly normal Debridement Note Debridement Note Wound debrided: Left Medial Ankle Type of Debridement: Excisional debridement Anesthesia Used: 4% Lidocaine Solution Depth: Down to and including healthy tissue and in the subcutaneous layer Percentage of wound debrided: 100 Instrument Used: 5mm curette Severity: Fat Layer Exposed Amount of bleeding with debridement: Mild Bleeding Controlled with: Pressure Patient tolerated procedure: Patient tolerated procedure well Post-Debridement Measurements and Additional Note: Post-Debridement Measurements/Treatment - Nurse 1 - General Ulcer Assessment Start: 01/05/22 09:04 Freq: Status: Active Protocol: SHANTA Activity Type Activity Date Activity User E-Sign Co-Sign Detail Recorded Client Recorded Date Recorded By Document 01/05/22 09:04 DL [id number] 01/05/22 09:14 DL Document 01/19/22 09:00 ML [id number] 01/19/22 09:10 ML 01/05/22 01/19/22 09:04 09:00 - Today's Visit Information Type of service Follow-up Visit Follow-up Visit (Physician/[employer]PPORT [employer]NER (Physician/[employer] SUPPORT PL[employer]NER ) ) Arrival Mode Ambulatory Ambulatory Transfer Assistance None None Patient Identification Verified (Name & Yes Yes ) Patient Requires Transmission-Based No Precautions Safety Precautions NA Height and Weight Body Mass Index (BMI) 31.4 31.4 BMI Classification Obese Obese Vital Signs Temperature (97.8 F-99.1 F) 96.7 F L 97.8 F Temperature Source Temporal Temporal Pulse Rate (60-100) 84 90 Pulse Location Monitor Monitor Respiratory Rate (12-18) 18 16 Respiratory rate source Observation Observation Blood Pressure (90/60-120/80) 143/89 H 160/81 H Blood Pressure Mean (mm Hg) 107 107 Source Monitor Monitor Position Supine Blood Pressure Location Left Arm History Since Last Visit- (Skip if this is Patient's initial visit) Have you changed medications since your No No last visit? Any new allergies or adverse reactions No No Had a fall/change in ADL's that may No No increase risk of falls Signs or symptoms of abuse and/or No No neglect since last visit Have you been in the hospital since your Yes No last visit? Has dressing in place as prescribed Yes Yes Has compression in place as prescribed Yes N/A Has offloadiing in place as prescribed Yes N/A Experienced any changes in pain level or No No management Left Footwear Regular Shoe Right Footwear Regular Shoe Pain Scale: 0-10 Numeric Is Patient Pain Free? Yes Yes WC - Nurse 1 - General Ulcer Measurement Start: 01/05/22 09:04 Freq: Status: Active Protocol: Activity Type Activity Date Activity User E-Sign Co-Sign Detail Recorded Client Recorded Date Recorded By Document 01/05/22 09:04 DL [id number] 01/05/22 09:14 DL Document 01/19/22 09:00 ML [id number] 01/19/22 09:10 ML 01/05/22 01/19/22 09:04 09:00 Wound Center Nurse 1 #12 Medial Superior LLE -Combined with (Name of Wound-Exactly 1.1 as it is documented) -Current Size (cm) - Length 1.4 1.1 -Current Size (cm) - Width 1.4 0.1 -Current Size (cm) - Depth 0.2 -Total Square Cm 1.96 0.11 -Photo Taken No -Exudate Amt Small -Exudate Type Serosanguineous Serous -Wound Margin Distinct, Distinct, Outline Outline Attached Attached -Granulation Amt Large (67-100%) Medium (34-66%) -Granulation Quality Red -Necrosis Amt Small (1-33%) Small (1-33%) -Necrotic Tissue Type Adherent Slough Adherent Slough -Structure Exposed N/A -Texture (Ara-wound Skin Appearance) Scarring Assessed -Moisture (Ara-wound Skin Appearance) Dry/Scaly Assessed -Color (Ara-wound Skin Appearance) Hemosiderin Assessed Staining -Temperature (Ara-wound Skin No Abnormality No Abnormality Appearance) (Pt Warm) (Pt Warm) -Tenderness on Palpation (Ara-wound No No Skin Appearance) -Ulcer Cleansing Not Cleansed Soap and Water -Foul Odor after Cleansing No Yes -Anesthetic Used 4% Lidocaine 4% Lidocaine Solution Solution #11 Medial Inferior LLE -Current Size (cm) - Length 5 4.5 -Current Size (cm) - Width 3.7 3.5 -Current Size (cm) - Depth 0.2 0.1 -Total Square Cm 18.5 15.75 -Photo Taken No -Exudate Amt Small Large -Exudate Type Serosanguineous -Wound Margin Distinct, Outline Attached -Granulation Amt Large (67-100%) -Granulation Quality Red Red -Necrosis Amt Small (1-33%) Small (1-33%) -Necrotic Tissue Type Adherent Slough Adherent Slough -Texture (Ara-wound Skin Appearance) Scarring Assessed -Moisture (Ara-wound Skin Appearance) Dry/Scaly Assessed -Color (Ara-wound Skin Appearance) Hemosiderin Assessed Staining -Temperature (Ara-wound Skin No Abnormality No Abnormality Appearance) (Pt Warm) (Pt Warm) -Tenderness on Palpation (Ara-wound No Skin Appearance) -Ulcer Cleansing Soap and Water Soap and Water -Foul Odor after Cleansing No No -Anesthetic Used 4% Lidocaine 4% Lidocaine Solution Solution #10 Left Medial Ankle -Current Size (cm) - Length 5.2 6.0 -Current Size (cm) - Width 5.6 4.0 -Current Size (cm) - Depth 0.3 0.2 -Total Square Cm 29.12 24.00 -Photo Taken No -Exudate Amt Small Medium -Exudate Type Serosanguineous Serosanguineous -Wound Margin Thickened Distinct, Outline Attached -Granulation Amt Medium (34-66%) Medium (34-66%) -Granulation Quality Red -Necrosis Amt Medium (34-66%) Medium (34-66%) -Necrotic Tissue Type Adherent Slough Adherent Slough -Texture (Ara-wound Skin Appearance) Scarring Assessed -Moisture (Ara-wound Skin Appearance) Dry/Scaly Assessed -Color (Ara-wound Skin Appearance) Hemosiderin Assessed Staining -Temperature (Ara-wound Skin No Abnormality No Abnormality Appearance) (Pt Warm) (Pt Warm) -Tenderness on Palpation (Ara-wound No No Skin Appearance) -Ulcer Cleansing Soap and Water Soap and Water -Foul Odor after Cleansing No No -Anesthetic Used 4% Lidocaine 4% Lidocaine Solution Solution Right Calf (cm) 33.6 Right Ankle (cm) 23.4 Left Calf (cm) 36.2 Left Ankle (cm) 24 WC - Nurse 2 - General Ulcer CM Notes Start: 01/05/22 09:04 Freq: Status: Active Protocol: Activity Type Activity Date Activity User E-Sign Co-Sign Detail Recorded Client Recorded Date Recorded By Document 01/05/22 09:19 MW [id number] 01/05/22 09:31 MW Edit Result 01/05/22 09:19 MW (1) [id number] 01/06/22 06:56 PL Document 01/19/22 09:15 MW [id number] 01/19/22 09:24 MW (1) #12 Medial Superior LLE - Debridement, SubQ, ea addt'l 20sq cm => 1 or part thereof 01/05/22 01/19/22 09:19 09:15 Wound Center Nurse 2 #12 Medial Superior LLE -Time : 09:15 -Correct Patient Yes Yes -Correct Side, Site, Position Yes Yes -Correct Procedure Yes Yes -Procedure Performed Yes Yes -Type of Procedure Incision & Debridement Drainage -Clinical Debridement Subcutaneous Subcutaneous -Tissue Removed Subcutaneous Subcutaneous -Post Debridement (cm) - Length 4.5 1.1 -Post Debridement (cm) - Width 4.0 1.4 -Post Debridement (cm) - Depth 0.2 0.1 -Total Square (Post) (cm) 18.00 1.54 -Area of Debridement (cm) - Length 4.5 1.1 -Area of Debridement (cm) - Width 4.0 1.4 -Total Square (Area) (cm) 18.00 1.54 -Tunneling No No -Undermining/Tunneling No No -Circular Undermining No No -Wound/Ulcer Outcome Not Healed Not Healed -Ulcer Cleansing Rinsed/ Rinsed/ Irrigated with Irrigated with Saline Saline -Foul Odor after Cleansing No No -Bioengineered Tissue No No -Bleeding Controlled with Pressure Pressure -Treatment Response Procedure Procedure Tolerated Well Tolerated Well -Offloading No No -Debridement - Subq, 1st 20sq cm Yes Yes -Debridement, SubQ, ea addt'l 20sq cm 1 1 or part thereof #11 Medial Inferior LLE -Time 09: 09:15 -Correct Patient Yes Yes -Correct Side, Site, Position Yes Yes -Correct Procedure Yes Yes -Procedure Performed Yes Yes -Type of Procedure Debridement Debridement -Clinical Debridement Subcutaneous Subcutaneous -Tissue Removed Subcutaneous Subcutaneous -Post Debridement (cm) - Length 3.5 3.5 -Post Debridement (cm) - Width 3.5 3.5 -Post Debridement (cm) - Depth 0.1 0.1 -Total Square (Post) (cm) 12.25 12.25 -Area of Debridement (cm) - Length 3.5 3.5 -Area of Debridement (cm) - Width 3.5 3.5 -Total Square (Area) (cm) 12.25 12.25 -Tunneling No No -Undermining/Tunneling No No -Circular Undermining No No -Wound/Ulcer Outcome Not Healed Not Healed -Ulcer Cleansing Rinsed/ Rinsed/ Irrigated with Irrigated with Saline Saline -Foul Odor after Cleansing No No -Bioengineered Tissue No No -Bleeding Controlled with Pressure Pressure -Treatment Response Procedure Procedure Tolerated Well Tolerated Well -Offloading No No -Debridement - Subq, 1st 20sq cm No No #10 Left Medial Ankle -Time 09:19 09:16 -Correct Patient Yes Yes -Correct Side, Site, Position Yes Yes -Correct Procedure Yes Yes -Procedure Performed Yes Yes -Type of Procedure Debridement Debridement -Clinical Debridement Subcutaneous Subcutaneous -Tissue Removed Subcutaneous Subcutaneous -Post Debridement (cm) - Length 1.4 5.0 -Post Debridement (cm) - Width 1.4 4.0 -Post Debridement (cm) - Depth 0.1 0.2 -Total Square (Post) (cm) 1.96 20.00 -Area of Debridement (cm) - Length 1.4 5.0 -Area of Debridement (cm) - Width 1.4 4.0 -Total Square (Area) (cm) 1.96 20.00 -Tunneling No No -Undermining/Tunneling No No -Circular Undermining No No -Wound/Ulcer Outcome Not Healed Not Healed -Ulcer Cleansing Rinsed/ Rinsed/ Irrigated with Irrigated with Saline Saline -Foul Odor after Cleansing No No -Bioengineered Tissue No No -Bleeding Controlled with Pressure Pressure -Treatment Response Procedure Procedure Tolerated Well Tolerated Well -Offloading No No -Debridement - Subq, 1st 20sq cm No No Pain Scale: 0-10 Numeric Is Patient Pain Free? Yes Yes WC - Nurse 3 - General Ulcer D/C NN Start: 01/05/22 09:04 Freq: Status: Active Protocol: Activity Type Activity Date Activity User E-Sign Co-Sign Detail Recorded Client Recorded Date Recorded By Document 01/05/22 09:38 LA [id number] 01/05/22 09:40 AK Document 01/19/22 09:34 DL [id number] 01/19/22 09:36 DL 01/05/22 01/19/22 09:38 09:34 Wound Care Nurse 3 #12 Medial Superior LLE -Ulcer Cleansing Rinsed/ Soap and Water Irrigated with Saline -Foul Odor after Cleansing No No -Negative Pressure Wound Therapy N/A -Primary Dressing Applied Aquacel AG 4x4 Aquacel AG 4x4 -Other Dressing ABD,keramax KerraMax -Primary Dressing Covered/Secured with Secured with Tape -Other Covering abd -Aquacel AG 4x4 1 1 #11 Medial Inferior LLE -Ulcer Cleansing Rinsed/ Soap and Water Irrigated with Saline -Foul Odor after Cleansing No No -Negative Pressure Wound Therapy N/A -Primary Dressing Applied Aquacel AG 4x4 -Other Dressing aqaucel/Kerra, ax -Primary Dressing Covered/Secured with Dry Gauze -Aquacel AG 4x4 0 #10 Left Medial Ankle -Ulcer Cleansing Rinsed/ Soap and Water Irrigated with Saline -Foul Odor after Cleansing No No -Negative Pressure Wound Therapy N/A -Primary Dressing Applied Aquacel AG 4x4 -Other Dressing aqaucel/ Karramax -Other Covering abd -Aquacel AG 4x4 0 Treatment Response Procedure Tolerated Well Pain Scale: 0-10 Numeric Is Patient Pain Free? Yes Yes WC - Visit Discharge Discharge Condition Stable Stable Ambulatory Status Ambulatory Ambulatory Transportation Private Auto Private Auto Medication Reconcilliation completed & Yes provided to patient/care provider Clinical Summary of Care Provided Yes Additional Wound Wound debrided: Left Lower Extremity ( Inferior ) Type of Debridement: Excisional debridement Anesthesia Used: 4% Lidocaine Solution Depth: Down to and including healthy tissue and in the subcutaneous layer Percentage of wound debrided: 100 Instrument Used: 5mm curette Tissue Removed: Slough and devitalized tissue Severity: Fat Layer Exposed Amount of bleeding with debridement: Mild Bleeding Controlled with: Pressure Patient tolerated procedure: Patient tolerated procedure well Additional Wound Wound debrided: Left Lower Extremity ( Superior ) Type of Debridement: Excisional debridement Anesthesia Used: 4% Lidocaine Solution Depth: Down to and including healthy tissue and in the subcutaneous layer Instrument Used: 5mm curette Tissue Removed: Slough and devitalized tissue Severity: Fat Layer Exposed Amount of bleeding with debridement: Mild Bleeding Controlled with: Pressure Patient tolerated procedure: Patient tolerated procedure well Assessment/Plan Assessment/Plan (1) Ulcer of left lower extremity with fat layer exposed: CODE(S): L97.922 - Non-pressure chronic ulcer of unspecified part of left lower leg with fat layer exposed (2) PVD (peripheral vascular disease): CODE(S): I73.9 - Peripheral vascular disease, unspecified (3) Chronic venous insufficiency: CODE(S): I87.2 - Venous insufficiency (chronic) (peripheral) (4) Delayed wound healing: CODE(S): T14.8XXD - Other injury of unspecified body region, subsequent encounter PLAN: Debridement done as documented above, procedure was well-tolerated. Ulcers look healthier. Better granulation tissue and less periwound crusting. Continue Aquacel silver and care max care to all ulcers, change daily to twice daily depending on drainage. Continue use of compression stockings, leg elevation and exercise. Increased protein intake, protein supplements, zinc and vitamin C also recommended. Continue multivitamins. Continue doxycycline for antibiotic prophylaxis due to MRSA colonization. Has scheduled with vascular surgery and has an appointment on 15 February. Alcohol cessation commended. We have also discussed the possibility for Plastic surgery referral for graft closure. His questions were answered and was advised to call with any further questions or concerns. Follow-up in 2 weeks. This note was generated with [employer] dictation software. It may contain incorrect words, spelling, and punctuation that were not noted in checking the note before signing.
== END 2022-01-26 23:59 | disposition home or self-care (01) ==
LOC: WC 09:00
PROVIDERS: Visit Provider Internal Medicine
DX: I73.9 Peripheral vascular disease, unspecified (principal); L97.322 Non-pressure chronic ulcer of left ankle with fat layer exposed; I87.2 Venous insufficiency (chronic) (peripheral)
CPT/HCPCS: 11042; 11045

== ENCOUNTER 2022-02-16 09:00 | Outpatient (RCR) | payer BC, SELFPAY ==
[2022-01-27 00:28] VITALS: BP 160/81; PULSE 90; RESP 16; TEMP 36.6; O2SAT 99; BMI 31.4
[2022-02-02 09:05] VITALS: BP 148/85; PULSE 91; RESP 18; TEMP 36.8; BMI 31.4
--- NOTE | 2022-02-02 09:32 | PN.PCM_ITS ---
History of Present Illness Date of Service: 02/02/22 Chief Complaint: ulcers to the left lower leg History of Wound: This is a 54-year-old male presents to wound healing center with a long-standing history of chronic venous insufficiency, chronic venous hypertension, lower extremity edema, lower extremity pain, and chronic left lower extremity ulcer. The patient has previously undergone endovenous laser ablation of the left and right great saphenous vein, the small saphenous vein, the left accessory saphenous vein, and an incompetent left calf textile examiner vein located 15 cm proximal to the left medial malleolus. He is currently wearing graduated compression stockings which are documented to be 20-30 mmHg compression and these are thigh high. He reports great compliance with use. He is also had previous arterial work-up with no intervention recommended by letter, his vascular surgeon. He denies taking nutritional supplementation. He saw dermatology and had a biopsy of the ulcer site. He also was previously treated by infectious disease for various contaminations and infections. He is not antibiotics at this time nor does he have any redness or odor coming from the wound. He denies fever, chill, nausea, vomiting, loss of appetite. Progress of Wound: Some improvement noted today. Denies any new concerns at this time. Subjective Subjective No new concerns. Objective Data Objective Data Vital Signs: Vital Signs Temp Pulse Resp BP Pulse Ox 98.2 F 91 18 148/85 H 99 02/02/22 09:05 02/02/22 09:05 02/02/22 09:05 02/02/22 09:05 01/27/22 00:28 Body Mass Index (BMI) 31.4 Charges/Coding Procedures Integumentary 111xxx-113xx: 04195 Lakeisha subq tissue 20 sq cm/< Add On Codes: 44310 Lakeisha subq tissue add-on (x1 additional square centimeter debrided, please refer to clinical note.) Physical Exam Const alert, oriented x3 and no apparent distress General Appearance: cooperative and comfortable Orientation / Consciousness: awake HEENT normocephalic Head and Scalp: normal to inspection, normocephalic and atraumatic Face and Sinus: normal facial exam Eyes EOMs intact bilaterally Neck full ROM and supple General: normal visual inspection Resp normal respiratory effort Effort and Inspection: able to speak in complete sentences GI non-tender Extremity normal to inspection General Extremity: edema Skin Wounds: wounds noted Neuro oriented x3 and CN's II-XII intact bilaterally Psych mental status grossly normal Appearance: grossly normal Debridement Note Debridement Note Wound debrided: Left medial ankle Type of Debridement: Excisional debridement Anesthesia Used: 4% Lidocaine Solution Depth: Down to and including healthy tissue and in the subcutaneous layer Percentage of wound debrided: 100 Instrument Used: 5mm curette Tissue Removed: Slough and devitalized tissue Severity: Fat Layer Exposed Amount of bleeding with debridement: Mild Bleeding Controlled with: Pressure Patient tolerated procedure: Patient tolerated procedure well Post-Debridement Measurements and Additional Note: Post-Debridement Measurements/Treatment WC - Nurse 1 - General Ulcer Assessment Start: 02/02/22 09:05 Freq: Status: Active Protocol: SHANTA Activity Type Activity Date Activity User E-Sign Co-Sign Detail Recorded Client Recorded Date Recorded By Document 02/02/22 09:05 DL [id number] 02/02/22 09:11 DL 02/02/22 09:05 WC - Today's Visit Information Type of service Follow-up Visit (Physician/ORTHOPAEDIC NURSE ) Arrival Mode Ambulatory Transfer Assistance None Patient Identification Verified (Name & Yes ) Patient Requires Transmission-Based No Precautions Height and Weight Body Mass Index (BMI) 31.4 BMI Classification Obese Vital Signs Temperature (97.8 F-99.1 F) 98.2 F Temperature Source Temporal Pulse Rate (60-100) 91 Pulse Location Monitor Respiratory Rate (12-18) 18 Respiratory rate source Observation Blood Pressure (90/60-120/80) 148/85 H Blood Pressure Mean (mm Hg) 106 Source Monitor History Since Last Visit- (Skip if this is Patient's initial visit) Have you changed medications since your No last visit? Any new allergies or adverse reactions No Had a fall/change in ADL's that may No increase risk of falls Signs or symptoms of abuse and/or No neglect since last visit Have you been in the hospital since your No last visit? Has dressing in place as prescribed Yes Has compression in place as prescribed Yes Has offloadiing in place as prescribed N/A Experienced any changes in pain level or No management Pain Scale: 0-10 Numeric Is Patient Pain Free? Yes KIMBERLY Ronquillo Nurse 1 - General Ulcer Measurement Start: 02/02/22 09:05 Freq: Status: Active Protocol: Activity Type Activity Date Activity User E-Sign Co-Sign Detail Recorded Client Recorded Date Recorded By Document 02/02/22 09:05 TIFFANY [id number] 02/02/22 09:11 TIFFANY 02/02/22 09:05 Wound Center Nurse 1 #12 Medial Superior LLE -Current Size (cm) - Length 1.4 -Current Size (cm) - Width 1 -Current Size (cm) - Depth 0.1 -Total Square Cm 1.4 -Photo Taken Yes -Exudate Amt Medium -Exudate Type Serosanguineous -Wound Margin Distinct, Outline Attached -Granulation Amt Large (67-100%) -Necrosis Amt Small (1-33%) -Necrotic Tissue Type Adherent Slough -Structure Exposed N/A -Texture (Ara-wound Skin Appearance) Scarring -Moisture (Ara-wound Skin Appearance) No Abnormality -Color (Ara-wound Skin Appearance) Hemosiderin Staining -Temperature (Ara-wound Skin No Abnormality Appearance) (Pt Warm) -Tenderness on Palpation (Ara-wound No Skin Appearance) -Ulcer Cleansing Soap and Water -Foul Odor after Cleansing No -Anesthetic Used 4% Lidocaine Solution #11 Medial Inferior LLE -Current Size (cm) - Length 4 -Current Size (cm) - Width 3.2 -Current Size (cm) - Depth 0.2 -Total Square Cm 12.8 -Photo Taken No -Exudate Amt Medium -Exudate Type Serosanguineous -Wound Margin Distinct, Outline Attached -Granulation Amt Large (67-100%) -Granulation Quality Red -Necrosis Amt Small (1-33%) -Necrotic Tissue Type Adherent Slough -Texture (Ara-wound Skin Appearance) Scarring -Color (Ara-wound Skin Appearance) Hemosiderin Staining -Temperature (Ara-wound Skin No Abnormality Appearance) (Pt Warm) -Tenderness on Palpation (Ara-wound No Skin Appearance) -Ulcer Cleansing Soap and Water -Foul Odor after Cleansing Yes, Due to Product Use -Anesthetic Used 4% Lidocaine Solution #10 Left Medial Ankle -Current Size (cm) - Length 5.6 -Current Size (cm) - Width 4 -Current Size (cm) - Depth 0.2 -Total Square Cm 22.4 -Photo Taken No -Exudate Amt Medium -Exudate Type Serosanguineous -Wound Margin Fibrotic Scar, Thickened Scar -Granulation Amt Medium (34-66%) -Granulation Quality Red -Necrosis Amt Medium (34-66%) -Necrotic Tissue Type Adherent Slough -Texture (Ara-wound Skin Appearance) Scarring -Moisture (Ara-wound Skin Appearance) No Abnormality -Color (Ara-wound Skin Appearance) Hemosiderin Staining -Temperature (Ara-wound Skin No Abnormality Appearance) (Pt Warm) -Tenderness on Palpation (Ara-wound No Skin Appearance) -Ulcer Cleansing Soap and Water -Anesthetic Used 4% Lidocaine Solution, Cetacaine Left Calf (cm) 35.2 Left Ankle (cm) 23.6 WC - Nurse 2 - General Ulcer CM Notes Start: 02/02/22 09:05 Freq: Status: Active Protocol: Activity Type Activity Date Activity User E-Sign Co-Sign Detail Recorded Client Recorded Date Recorded By Document 02/02/22 09:18 MW [id number] 02/02/22 09:27 MW 02/02/22 09:18 Wound Center Nurse 2 #12 Medial Superior LLE -Time 09:18 -Correct Patient Yes -Correct Side, Site, Position Yes -Correct Procedure Yes -Procedure Performed Yes -Type of Procedure Debridement -Clinical Debridement Subcutaneous -Tissue Removed Subcutaneous -Post Debridement (cm) - Length 1.3 -Post Debridement (cm) - Width 1.1 -Post Debridement (cm) - Depth 0.1 -Total Square (Post) (cm) 1.43 -Area of Debridement (cm) - Length 1.3 -Area of Debridement (cm) - Width 1.1 -Total Square (Area) (cm) 1.43 -Tunneling No -Undermining/Tunneling No -Circular Undermining No -Wound/Ulcer Outcome Not Healed -Ulcer Cleansing Rinsed/ Irrigated with Saline -Foul Odor after Cleansing No -Bioengineered Tissue No -Bleeding Controlled with Pressure -Treatment Response Procedure Tolerated Well -Offloading No -Debridement - Subq, 1st 20sq cm Yes -Debridement, SubQ, ea addt'l 20sq cm 1 or part thereof #11 Medial Inferior LLE -Time 09:18 -Correct Patient Yes -Correct Side, Site, Position Yes -Correct Procedure Yes -Procedure Performed Yes -Type of Procedure Debridement -Clinical Debridement Subcutaneous -Tissue Removed Subcutaneous -Post Debridement (cm) - Length 3.3 -Post Debridement (cm) - Width 3.5 -Post Debridement (cm) - Depth 0.1 -Total Square (Post) (cm) 11.55 -Area of Debridement (cm) - Length 3.3 -Area of Debridement (cm) - Width 3.5 -Total Square (Area) (cm) 11.55 -Tunneling No -Undermining/Tunneling No -Circular Undermining No -Wound/Ulcer Outcome Not Healed -Ulcer Cleansing Rinsed/ Irrigated with Saline -Foul Odor after Cleansing No -Bioengineered Tissue No -Bleeding Controlled with Pressure -Treatment Response Procedure Tolerated Well -Offloading No -Debridement - Subq, 1st 20sq cm No #10 Left Medial Ankle -Time 09:19 -Correct Patient Yes -Correct Side, Site, Position Yes -Correct Procedure Yes -Procedure Performed Yes -Type of Procedure Debridement -Clinical Debridement Subcutaneous -Tissue Removed Subcutaneous -Post Debridement (cm) - Length 4.5 -Post Debridement (cm) - Width 4.0 -Post Debridement (cm) - Depth 0.1 -Total Square (Post) (cm) 18.00 -Area of Debridement (cm) - Length 4.5 -Area of Debridement (cm) - Width 4.0 -Total Square (Area) (cm) 18.00 -Tunneling No -Undermining/Tunneling No -Circular Undermining No -Wound/Ulcer Outcome Not Healed -Ulcer Cleansing Rinsed/ Irrigated with Saline -Foul Odor after Cleansing No -Bioengineered Tissue No -Bleeding Controlled with Pressure -Treatment Response Procedure Tolerated Well -Offloading No -Debridement - Subq, 1st 20sq cm No Pain Scale: 0-10 Numeric Is Patient Pain Free? Yes Additional Wound Wound debrided: Left lower extremity (inferior) Type of Debridement: Excisional debridement Anesthesia Used: 4% Lidocaine Solution Depth: Down to and including healthy tissue and in the subcutaneous layer Percentage of wound debrided: 100 Instrument Used: 5mm curette Tissue Removed: Slough and devitalized tissue Severity: Fat Layer Exposed Amount of bleeding with debridement: Mild Bleeding Controlled with: Pressure Patient tolerated procedure: Patient tolerated procedure well Additional Wound Wound debrided: Left lower extremity (superior) Type of Debridement: Excisional debridement Anesthesia Used: 4% Lidocaine Solution Depth: Down to and including healthy tissue and in the subcutaneous layer Percentage of wound debrided: 100 Instrument Used: 5mm curette Tissue Removed: Slough and devitalized tissue Severity: Fat Layer Exposed Amount of bleeding with debridement: Mild Bleeding Controlled with: Pressure Patient tolerated procedure: Patient tolerated procedure well Assessment/Plan Assessment/Plan (1) Ulcer of left lower extremity with fat layer exposed: CODE(S): L97.922 - Non-pressure chronic ulcer of unspecified part of left lower leg with fat layer exposed (2) PVD (peripheral vascular disease): CODE(S): I73.9 - Peripheral vascular disease, unspecified (3) Chronic venous insufficiency: CODE(S): I87.2 - Venous insufficiency (chronic) (peripheral) (4) Delayed wound healing: CODE(S): T14.8XXD - Other injury of unspecified body region, subsequent encounter PLAN: Debridement done as documented above, procedure was well-tolerated. Some improvement in size. Ulcers again look healthier with better granulation tissue and less periwound crusting. Continue Aquacel silver and care max care to all ulcers, change daily to twice daily depending on drainage. Continue use of compression stockings, leg elevation and exercise. Increased protein intake, protein supplements, zinc and vitamin C also recommended. Continue multivitamins. Continue doxycycline for antibiotic prophylaxis due to MRSA colonization. Has scheduled with vascular surgery and has an appointment on 15 February. Alcohol cessation commended. We have also discussed the possibility for Plastic surgery referral for graft closure. His questions were answered and was advised to call with any further questions or concerns. Follow-up in 2 weeks. This note was generated with [employer] dictation software. It may contain incorrect words, spelling, and punctuation that were not noted in checking the note before signing.
[2022-02-16 09:05] VITALS: BP 147/84; PULSE 77; RESP 18; TEMP 36.2; BMI 31.4
--- NOTE | 2022-02-16 10:18 | PN.PCM_ITS ---
History of Present Illness Date of Service: 02/16/22 Chief Complaint: ulcers to the left lower leg History of Wound: This is a 54-year-old male presents to wound healing center with a long-standing history of chronic venous insufficiency, chronic venous hypertension, lower extremity edema, lower extremity pain, and chronic left lower extremity ulcer. The patient has previously undergone endovenous laser ablation of the left and right great saphenous vein, the small saphenous vein, the left accessory saphenous vein, and an incompetent left calf finish opener vein located 15 cm proximal to the left medial malleolus. He is currently wearing graduated compression stockings which are documented to be 20-30 mmHg compression and these are thigh high. He reports great compliance with use. He is also had previous arterial work-up with no intervention recommended by letter, his vascular surgeon. He denies taking nutritional supplementation. He saw dermatology and had a biopsy of the ulcer site. He also was previously treated by infectious disease for various contaminations and infections. He is not antibiotics at this time nor does he have any redness or odor coming from the wound. He denies fever, chill, nausea, vomiting, loss of appetite. Progress of Wound: No significant change since his last visit. Increased depth to inferior and superior leg ulcers. Has re established with Vascular surgery. He states that he has been doing wound dressings as recommended. Subjective Subjective No concerns at this time. Objective Data Objective Data Vital Signs: Vital Signs Temp Pulse Resp BP Pulse Ox 97.2 F L 77 18 147/84 H 99 02/16/22 09:05 02/16/22 09:05 02/16/22 09:05 02/16/22 09:05 01/27/22 00:28 Oxygen Delivery Method Room Air Body Mass Index (BMI) 31.4 Charges/Coding Procedures Integumentary 111xxx-113xx: 80084 [place]isha subq tissue 20 sq cm/< Add On Codes: 42116 Lakeisha subq tissue add-on (Additional square centimeter debrided, please refer to clinical note) Physical Exam Const alert, oriented x3 and no apparent distress General Appearance: cooperative and comfortable Orientation / Consciousness: awake HEENT normocephalic Head and Scalp: normal to inspection, normocephalic and atraumatic Face and Sinus: normal facial exam Eyes EOMs intact bilaterally Neck full ROM and supple General: normal visual inspection Resp normal respiratory effort Effort and Inspection: able to speak in complete sentences GI non-tender Extremity normal to inspection General Extremity: edema Skin Wounds: wounds noted Neuro oriented x3 and CN's II-XII intact bilaterally Psych mental status grossly normal Appearance: grossly normal Debridement Note Debridement Note Wound debrided: Left medial ankle Type of Debridement: Excisional debridement Anesthesia Used: 4% Lidocaine Solution Depth: Down to and including healthy tissue and in the subcutaneous layer Percentage of wound debrided: 100 Instrument Used: 5mm curette Tissue Removed: Slough and devitalized tissue Severity: Fat Layer Exposed Amount of bleeding with debridement: Mild Bleeding Controlled with: Pressure Patient tolerated procedure: Patient tolerated procedure well Post-Debridement Measurements and Additional Note: Post-Debridement Measurements/Treatment - Nurse 1 - General Ulcer Assessment Start: 02/02/22 09:05 Freq: Status: Active Protocol: SHANTA Activity Type Activity Date Activity User E-Sign Co-Sign Detail Recorded Client Recorded Date Recorded By Document 02/02/22 09:05 DL [id number] 02/02/22 09:11 DL Document 02/16/22 09:05 MW [id number] 02/16/22 09:17 MW 02/02/22 02/16/22 09:05 09:05 - Today's Visit Information Type of service Follow-up Visit Follow-up Visit (Physician/DATA WAREHOUSING ENGINEER (Physician/DATA WAREHOUSING ENGINEER ) ) Arrival Mode Ambulatory Ambulatory Transfer Assistance None None Accompanied by self Patient Identification Verified (Name & Yes Yes ) Patient Requires Transmission-Based No No Precautions Safety Precautions NA Height and Weight Body Mass Index (BMI) 31.4 31.4 BMI Classification Obese Obese Vital Signs Temperature (97.8 F-99.1 F) 98.2 F 97.2 F L Temperature Source Temporal Temporal Pulse Rate (60-100) 91 77 Pulse Location Monitor Monitor Respiratory Rate (12-18) 18 18 Respiratory rate source Observation Observation Oxygen Delivery Method Room Air Blood Pressure (90/60-120/80) 148/85 H 147/84 H Blood Pressure Mean (mm Hg) 106 105 Source Monitor Monitor Position Sitting Blood Pressure Location Left Arm History Since Last Visit- (Skip if this is Patient's initial visit) Have you changed medications since your No No last visit? Any new allergies or adverse reactions No No Had a fall/change in ADL's that may No No increase risk of falls Signs or symptoms of abuse and/or No No neglect since last visit Have you been in the hospital since your No No last visit? Has dressing in place as prescribed Yes Yes Has compression in place as prescribed Yes Has offloadiing in place as prescribed N/A N/A Experienced any changes in pain level or No No management Left Footwear Regular Shoe Right Footwear Regular Shoe Pain Scale: 0-10 Numeric Is Patient Pain Free? Yes Yes WC - Nurse 1 - General Ulcer Measurement Start: 02/02/22 09:05 Freq: Status: Active Protocol: Activity Type Activity Date Activity User E-Sign Co-Sign Detail Recorded Client Recorded Date Recorded By Document 02/02/22 09:05 DL [id number] 02/02/22 09:11 DL Document 02/16/22 09:05 MW [id number] 02/16/22 09:17 MW 02/02/22 02/16/22 09:05 09:05 Wound Center Nurse 1 #12 Medial Superior LLE -Combined with other wound No -Current Size (cm) - Length 1.4 1.3 -Current Size (cm) - Width 1 1.3 -Current Size (cm) - Depth 0.1 0.1 -Total Square Cm 1.4 1.69 -Date of Last Picture (Recall this 02/16/22 field) -Photo Taken Yes Yes -Epithelialization None Present -Tunneling No -Undermining/Tunneling No -Circular Undermining No -Exudate Amt Medium Large -Exudate Type Serosanguineous Serosanguineous -Wound Margin Distinct, Thickened Outline Attached -Granulation Amt Large (67-100%) Medium (34-66%) -Granulation Quality [place] -Slough/Fibrin Yes -Necrosis Amt Small (1-33%) Medium (34-66%) -Necrotic Tissue Type Adherent Slough Adherent Slough -Structure Exposed N/A N/A -Texture (Ara-wound Skin Appearance) Scarring Assessed, Scarring -Moisture (Ara-wound Skin Appearance) No Abnormality Assessed,Dry/ Scaly -Color (Ara-wound Skin Appearance) Hemosiderin Assessed, Staining Hemosiderin Staining -Temperature (Ara-wound Skin No Abnormality No Abnormality Appearance) (Pt Warm) (Pt Warm) -Tenderness on Palpation (Ara-wound No No Skin Appearance) -Ulcer Cleansing Soap and Water Soap and Water -Foul Odor after Cleansing No No -Anesthetic Used 4% Lidocaine 4% Lidocaine Solution Solution #11 Medial Inferior LLE -Combined with other wound No -Current Size (cm) - Length 4 4.2 -Current Size (cm) - Width 3.2 3.0 -Current Size (cm) - Depth 0.2 0.1 -Total Square Cm 12.8 12.60 -Date of Last Picture (Recall this 02/16/22 field) -Photo Taken No Yes -Epithelialization None Present -Tunneling No -Undermining/Tunneling No -Circular Undermining No -Exudate Amt Medium Large -Exudate Type Serosanguineous Serosanguineous -Wound Margin Distinct, Thickened Outline Attached -Granulation Amt Large (67-100%) Medium (34-66%) -Granulation Quality [place] -Slough/Fibrin Yes -Necrosis Amt Small (1-33%) Medium (34-66%) -Necrotic Tissue Type Adherent Slough Adherent Slough -Structure Exposed N/A -Texture (Ara-wound Skin Appearance) Scarring Assessed, Scarring -Moisture (Ara-wound Skin Appearance) Assessed,Dry/ Scaly -Color (Ara-wound Skin Appearance) Hemosiderin Assessed, Staining Hemosiderin Staining -Temperature (Ara-wound Skin No Abnormality No Abnormality Appearance) (Pt Warm) (Pt Warm) -Tenderness on Palpation (Ara-wound No No Skin Appearance) -Ulcer Cleansing Soap and Water Soap and Water -Foul Odor after Cleansing Yes, Due to No Product Use -Anesthetic Used 4% Lidocaine 4% Lidocaine Solution Solution #10 Left Medial Ankle -Combined with other wound No -Current Size (cm) - Length 5.6 6.0 -Current Size (cm) - Width 4 4.0 -Current Size (cm) - Depth 0.2 0.2 -Total Square Cm 22.4 24.00 -Photo Taken No No -Epithelialization None Present -Tunneling No -Undermining/Tunneling No -Circular Undermining No -Exudate Amt Medium Large -Exudate Type Serosanguineous Serosanguineous -Wound Margin Fibrotic Scar, Thickened Thickened Scar -Granulation Amt Medium (34-66%) Medium (34-66%) -Granulation Quality Red [place] -Slough/Fibrin Yes -Necrosis Amt Medium (34-66%) Medium (34-66%) -Necrotic Tissue Type Adherent Slough Adherent Slough -Structure Exposed N/A -Texture (Ara-wound Skin Appearance) Scarring Assessed, Scarring -Moisture (Ara-wound Skin Appearance) No Abnormality Assessed,Dry/ Scaly -Color (Ara-wound Skin Appearance) Hemosiderin Assessed, Staining Hemosiderin Staining -Temperature (Ara-wound Skin No Abnormality No Abnormality Appearance) (Pt Warm) (Pt Warm) -Tenderness on Palpation (Ara-wound No No Skin Appearance) -Ulcer Cleansing Soap and Water Soap and Water -Foul Odor after Cleansing No -Anesthetic Used 4% Lidocaine 4% Lidocaine Solution, Solution Cetacaine Lower Limb Edema Present No Left Calf (cm) 35.2 36.5 Left Ankle (cm) 23.6 23.0 WC - Nurse 2 - General Ulcer CM Notes Start: 02/02/22 09:05 Freq: Status: Active Protocol: Activity Type Activity Date Activity User E-Sign Co-Sign Detail Recorded Client Recorded Date Recorded By Document 02/02/22 09:18 MW [id number] 02/02/22 09:27 MW Document 02/16/22 09:20 MW [id number] 02/16/22 09:41 MW 02/02/22 02/16/22 09:18 09:20 Wound Center Nurse 2 #12 Medial Superior LLE -Time 09:18 09:20 -Correct Patient Yes Yes -Correct Side, Site, Position Yes Yes -Correct Procedure Yes Yes -Procedure Performed Yes Yes -Type of Procedure Debridement Debridement -Clinical Debridement Subcutaneous Subcutaneous -Tissue Removed Subcutaneous Subcutaneous -Post Debridement (cm) - Length 1.3 1.2 -Post Debridement (cm) - Width 1.1 1.0 -Post Debridement (cm) - Depth 0.1 0.2 -Total Square (Post) (cm) 1.43 1.20 -Area of Debridement (cm) - Length 1.3 1.2 -Area of Debridement (cm) - Width 1.1 1.0 -Total Square (Area) (cm) 1.43 1.20 -Tunneling No No -Undermining/Tunneling No No -Circular Undermining No No -Wound/Ulcer Outcome Not Healed Not Healed -Ulcer Cleansing Rinsed/ Rinsed/ Irrigated with Irrigated with Saline Saline -Foul Odor after Cleansing No No -Bioengineered Tissue No No -Bleeding Controlled with Pressure Pressure -Treatment Response Procedure Procedure Tolerated Well Tolerated Well -Offloading No No -Debridement - Subq, 1st 20sq cm Yes Yes -Debridement, SubQ, ea addt'l 20sq cm 1 or part thereof #11 Medial Inferior LLE -Time 09:18 09:20 -Correct Patient Yes Yes -Correct Side, Site, Position Yes Yes -Correct Procedure Yes Yes -Procedure Performed Yes Yes -Type of Procedure Debridement Debridement -Clinical Debridement Subcutaneous Subcutaneous -Tissue Removed Subcutaneous Subcutaneous -Post Debridement (cm) - Length 3.3 3.5 -Post Debridement (cm) - Width 3.5 3.0 -Post Debridement (cm) - Depth 0.1 0.3 -Total Square (Post) (cm) 11.55 10.50 -Area of Debridement (cm) - Length 3.3 3.5 -Area of Debridement (cm) - Width 3.5 3.0 -Total Square (Area) (cm) 11.55 10.50 -Tunneling No No -Undermining/Tunneling No No -Circular Undermining No No -Wound/Ulcer Outcome Not Healed Not Healed -Ulcer Cleansing Rinsed/ Rinsed/ Irrigated with Irrigated with Saline Saline -Foul Odor after Cleansing No No -Bioengineered Tissue No No -Bleeding Controlled with Pressure Pressure -Treatment Response Procedure Procedure Tolerated Well Tolerated Well -Offloading No No -Debridement - Subq, 1st 20sq cm No No #10 Left Medial Ankle -Time 09:19 09:21 -Correct Patient Yes Yes -Correct Side, Site, Position Yes Yes -Correct Procedure Yes Yes -Procedure Performed Yes Yes -Type of Procedure Debridement Debridement -Clinical Debridement Subcutaneous Subcutaneous -Tissue Removed Subcutaneous Subcutaneous -Post Debridement (cm) - Length 4.5 5.0 -Post Debridement (cm) - Width 4.0 3.8 -Post Debridement (cm) - Depth 0.1 0.2 -Total Square (Post) (cm) 18.00 19.00 -Area of Debridement (cm) - Length 4.5 5.0 -Area of Debridement (cm) - Width 4.0 3.8 -Total Square (Area) (cm) 18.00 19.00 -Tunneling No No -Undermining/Tunneling No No -Circular Undermining No No -Wound/Ulcer Outcome Not Healed Not Healed -Ulcer Cleansing Rinsed/ Rinsed/ Irrigated with Irrigated with Saline Saline -Foul Odor after Cleansing No No -Bioengineered Tissue No No -Bleeding Controlled with Pressure Pressure -Treatment Response Procedure Procedure Tolerated Well Tolerated Well -Offloading No No -Debridement - Subq, 1st 20sq cm No No Pain Scale: 0-10 Numeric Is Patient Pain Free? Yes Yes WC - Nurse 3 - General Ulcer D/C NN Start: 02/02/22 09:05 Freq: Status: Active Protocol: Activity Type Activity Date Activity User E-Sign Co-Sign Detail Recorded Client Recorded Date Recorded By Document 02/02/22 09:37 DL [id number] 02/02/22 09:39 DL Document 02/16/22 09:47 DL [id number] 02/16/22 09:49 DL 02/02/22 02/16/22 09:37 09:47 Wound Care Nurse 3 #12 Medial Superior LLE -Ulcer Cleansing Rinsed/ Rinsed/ Irrigated with Irrigated with Saline Saline -Foul Odor after Cleansing No No -Primary Dressing Applied Aquacel AG 4x4 -Other Dressing Kaerramax aqaucel Ag/ kerramax -Primary Dressing Covered/Secured with Dry Gauze -Aquacel AG 4x4 1 #11 Medial Inferior LLE -Ulcer Cleansing Rinsed/ Rinsed/ Irrigated with Irrigated with Saline Saline -Foul Odor after Cleansing No No -Other Dressing aqaucel ag/ aqaucel ag/ kerramax kerraMax -Primary Dressing Covered/Secured with Secured with Dry Gauze Tape #10 Left Medial Ankle -Ulcer Cleansing Rinsed/ Rinsed/ Irrigated with Irrigated with Saline Saline -Foul Odor after Cleansing No No -Other Dressing aqaucel ag/ aqaucel/ kerramax kerrramax -Primary Dressing Covered/Secured with Secured with Dry Gauze Tape Left -Stockings Yes Yes Treatment Response Procedure Tolerated Well Pain Scale: 0-10 Numeric Is Patient Pain Free? Yes Yes WC - Visit Discharge Discharge Condition Stable Stable Ambulatory Status Ambulatory Ambulatory Transportation Private Auto Private Auto Additional Wound Wound debrided: Left lower extremity inferior Type of Debridement: Excisional debridement Depth: Down to and including healthy tissue and in the subcutaneous layer Percentage of wound debrided: 100 Instrument Used: 5mm curette Tissue Removed: Slough and devitalized tissue Severity: Fat Layer Exposed Amount of bleeding with debridement: Mild Bleeding Controlled with: Pressure Patient tolerated procedure: Patient tolerated procedure well Additional Wound Wound debrided: Left lower extremity superior Type of Debridement: Excisional debridement Anesthesia Used: 4% Lidocaine Solution Depth: Down to and including healthy tissue and in the subcutaneous layer Percentage of wound debrided: 100 Instrument Used: 5mm curette Tissue Removed: Slough and devitalized tissue Severity: Fat Layer Exposed Amount of bleeding with debridement: Mild Bleeding Controlled with: Pressure Patient tolerated procedure: Patient tolerated procedure well Assessment/Plan Assessment/Plan (1) Ulcer of left lower extremity with fat layer exposed: CODE(S): L97.922 - Non-pressure chronic ulcer of unspecified part of left lower leg with fat layer exposed (2) PVD (peripheral vascular disease): CODE(S): I73.9 - Peripheral vascular disease, unspecified (3) Chronic venous insufficiency: CODE(S): I87.2 - Venous insufficiency (chronic) (peripheral) (4) Delayed wound healing: CODE(S): T14.8XXD - Other injury of unspecified body region, subsequent encounter PLAN: Debridement done as documented above, procedure was well-tolerated. Increasing depth of the superior and inferior leg ulcers otherwise good granulation tissue. Looking into enrolling in organogenesis program for free/sample [employer] products. I believe he will be a good candidate for this and benefit from it. Has not done well in the past on TheraSkin and another skin substitute use years ago. Now reestablished with vascular surgery and use concomitantly with vascular surgery procedures, we might achieve better results. For now continue Aquacel silver and care max care to all ulcers, change daily to twice daily depending on drainage. Continue use of compression stockings, leg elevation and exercise. Increased protein intake, protein supplements, zinc and vitamin C also recommended. Continue multivitamins. Alcohol cessation commended. We have also discussed the possibility for Plastic surgery referral for graft closure. His questions were answered and was advised to call with any further questions or concerns. Follow-up in 2 weeks. This note was generated with hybris dictation software. It may contain incorrect words, spelling, and punctuation that were not noted in checking the note before signing.
== END 2022-02-25 23:59 | disposition home or self-care (01) ==
LOC: WC 09:00
PROVIDERS: Visit Provider Internal Medicine
DX: I73.9 Peripheral vascular disease, unspecified (principal); L97.322 Non-pressure chronic ulcer of left ankle with fat layer exposed; I87.2 Venous insufficiency (chronic) (peripheral); R60.0 Localized edema; M79.606 Pain in leg, unspecified
CPT/HCPCS: 11042; 11045

== ENCOUNTER 2022-03-16 09:00 | Outpatient (RCR) | payer BC, SELFPAY ==
[2022-02-26 00:27] VITALS: BP 147/84; PULSE 77; RESP 18; TEMP 36.2; O2SAT 99; BMI 31.4
[2022-03-02 09:04] VITALS: BP 157/84; PULSE 91; RESP 16; TEMP 36.1; BMI 31.4
--- NOTE | 2022-03-02 09:38 | PCM.WC.PN ---
History of Present Illness Date of Service: 03/02/22 Chief Complaint: ulcers to the left lower leg History of Wound: This is a 54-year-old male presents to wound healing center with a long-standing history of chronic venous insufficiency, chronic venous hypertension, lower extremity edema, lower extremity pain, and chronic left lower extremity ulcer. 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 He is currently wearing graduated compression stockings which are documented to be 20-30 mmHg compression and these are thigh high. He reports great compliance with use. He is also had previous arterial work-up with no intervention recommended by letter, his vascular surgeon. He denies taking nutritional supplementation. He saw dermatology and had a biopsy of the ulcer site. He also was previously treated by infectious disease for various contaminations and infections. He is not antibiotics at this time nor does he have any redness or odor coming from the wound. He denies fever, chill, nausea, vomiting, loss of appetite. Progress of Wound: No significant change in size. Appears stable. He reports increased drainage. Not doing changes as directed. Objective Data Objective Data Vital Signs: Vital Signs Temp Pulse Resp BP Pulse Ox 97 F L 91 16 157/84 H 99 03/02/22 09:04 03/02/22 09:04 03/02/22 09:04 03/02/22 09:04 02/26/22 00:27 Oxygen Delivery Method Room Air Body Mass Index (BMI) 31.4 Charges/Coding Procedures Integumentary 111xxx-113xx: [id number] Lakeisha subq tissue 20 sq cm/< Add On Codes: 77423 Lakeisha subq tissue add-on Physical Exam Const alert, oriented x3 and no apparent distress General Appearance: cooperative and comfortable Orientation / Consciousness: awake HEENT normocephalic Head and Scalp: normal to inspection, normocephalic and atraumatic Face and Sinus: normal facial exam Eyes EOMs intact bilaterally Neck full ROM and supple General: normal visual inspection Resp normal respiratory effort Effort and Inspection: able to speak in complete sentences GI non-tender Extremity normal to inspection General Extremity: edema Skin Wounds: wounds noted Neuro oriented x3 and CN's II-XII intact bilaterally Psych mental status grossly normal Appearance: grossly normal Debridement Note Debridement Note Wound debrided: Left medial ankle Type of Debridement: Excisional debridement Anesthesia Used: 4% Lidocaine Solution Depth: Down to and including healthy tissue and in the subcutaneous layer Percentage of wound debrided: 100 Instrument Used: 5mm curette Tissue Removed: Slough and devitalized tissue Severity: Fat Layer Exposed Amount of bleeding with debridement: Mild Bleeding Controlled with: Pressure Patient tolerated procedure: Patient tolerated procedure well Post-Debridement Measurements and Additional Note: Post-Debridement Measurements/Treatment - Nurse 1 - General Ulcer Assessment Start: 03/02/22 09:04 Freq: Status: Active Protocol: SHANTA Activity Type Activity Date Activity User E-Sign Co-Sign Detail Recorded Client Recorded Date Recorded By Document 03/02/22 09:04 [facility] [id number] 03/02/22 09:11 [facility] 03/02/22 09:04 WC - Today's Visit Information Type of service Follow-up Visit (Physician/RESEARCH NEUROPSYCHOLOGIST ) Arrival Mode Ambulatory Transfer Assistance None Patient Identification Verified (Name & Yes ) Patient Requires Transmission-Based No Precautions Height and Weight Body Mass Index (BMI) 31.4 BMI Classification Obese Vital Signs Temperature (97.8 F-99.1 F) 97 F L Temperature Source Temporal Pulse Rate (60-100) 91 Pulse Location Monitor Respiratory Rate (12-18) 16 Respiratory rate source Observation Oxygen Delivery Method Room Air Blood Pressure (90/60-120/80) 157/84 H Blood Pressure Mean (mm Hg) 108 Source Monitor Position Sitting Blood Pressure Location Left Arm History Since Last Visit- (Skip if this is Patient's initial visit) Have you changed medications since your No last visit? Any new allergies or adverse reactions No Had a fall/change in ADL's that may No increase risk of falls Signs or symptoms of abuse and/or No neglect since last visit Have you been in the hospital since your No last visit? Has dressing in place as prescribed Yes Has compression in place as prescribed Yes Has offloadiing in place as prescribed N/A Experienced any changes in pain level or No management Left Footwear Regular Shoe Right Footwear Regular Shoe Pain Scale: 0-10 Numeric Is Patient Pain Free? Yes KIMBERLY - Nurse 1 - General Ulcer Measurement Start: 03/02/22 09:04 Freq: Status: Active Protocol: Activity Type Activity Date Activity User E-Sign Co-Sign Detail Recorded Client Recorded Date Recorded By Document 03/02/22 09:04 [facility] [id number] 03/02/22 09:11 [facility] 03/02/22 09:04 Wound Center Nurse 1 #12 Medial Superior LLE -Combined with other wound No -Current Size (cm) - Length 1.5 -Current Size (cm) - Width 1.1 -Current Size (cm) - Depth 0.1 -Total Square Cm 1.65 -Date of Last Picture (Recall this 03/02/22 field) -Photo Taken Yes -Epithelialization None Present -Tunneling No -Undermining/Tunneling No -Circular Undermining No -Exudate Amt Medium -Exudate Type Purulent -Wound Margin Distinct, Outline Attached -Granulation Amt Large (67-100%) -Granulation Quality Red -Slough/Fibrin Yes -Necrosis Amt Small (1-33%) -Necrotic Tissue Type Adherent Slough -Texture (Ara-wound Skin Appearance) Assessed, Scarring -Moisture (Ara-wound Skin Appearance) Assessed,Dry/ Scaly -Color (Ara-wound Skin Appearance) Assessed, Hemosiderin Staining -Temperature (Ara-wound Skin No Abnormality Appearance) (Pt Warm) -Tenderness on Palpation (Ara-wound No Skin Appearance) -Ulcer Cleansing Soap and Water -Foul Odor after Cleansing No -Anesthetic Used 4% Lidocaine Solution #11 Medial Inferior LLE -Combined with other wound No -Current Size (cm) - Length 3.8 -Current Size (cm) - Width 4 -Current Size (cm) - Depth 0.2 -Total Square Cm 15.2 -Date of Last Picture (Recall this 03/02/22 field) -Photo Taken Yes -Epithelialization None Present -Tunneling No -Undermining/Tunneling No -Circular Undermining No -Exudate Amt Medium -Exudate Type Purulent -Wound Margin Distinct, Outline Attached -Granulation Amt Medium (34-66%) -Granulation Quality Red -Slough/Fibrin Yes -Necrosis Amt Medium (34-66%) -Necrotic Tissue Type Adherent Slough -Texture (Ara-wound Skin Appearance) Assessed, Scarring -Moisture (Ara-wound Skin Appearance) Assessed -Color (Ara-wound Skin Appearance) Assessed, Hemosiderin Staining -Temperature (Ara-wound Skin No Abnormality Appearance) (Pt Warm) -Tenderness on Palpation (Ara-wound No Skin Appearance) -Ulcer Cleansing Soap and Water -Foul Odor after Cleansing No -Anesthetic Used 4% Lidocaine Solution #10 Left Medial Ankle -Combined with other wound No -Current Size (cm) - Length 6.6 -Current Size (cm) - Width 3 -Current Size (cm) - Depth 0.2 -Total Square Cm 19.8 -Date of Last Picture (Recall this 03/02/22 field) -Photo Taken Yes -Epithelialization None Present -Tunneling No -Undermining/Tunneling No -Circular Undermining No -Exudate Amt Medium -Exudate Type Purulent -Wound Margin Distinct, Outline Attached -Granulation Amt Medium (34-66%) -Granulation Quality Red -Slough/Fibrin Yes -Necrosis Amt Medium (34-66%) -Necrotic Tissue Type Adherent Slough -Texture (Ara-wound Skin Appearance) Assessed, Scarring -Moisture (Ara-wound Skin Appearance) Assessed -Color (Ara-wound Skin Appearance) Assessed, Hemosiderin Staining -Temperature (Ara-wound Skin No Abnormality Appearance) (Pt Warm) -Tenderness on Palpation (Ara-wound No Skin Appearance) -Ulcer Cleansing Soap and Water -Foul Odor after Cleansing No -Anesthetic Used 4% Lidocaine Solution Lower Limb Edema Present Yes Left Calf (cm) 37 Left Ankle (cm) 24 WC - Nurse 2 - General Ulcer CM Notes Start: 03/02/22 09:04 Freq: Status: Active Protocol: Activity Type Activity Date Activity User E-Sign Co-Sign Detail Recorded Client Recorded Date Recorded By Document 03/02/22 09:21 MW [id number] 03/02/22 09:37 MW 03/02/22 09:21 Wound Center Nurse 2 #12 Medial Superior LLE -Time 09:22 -Correct Patient Yes -Correct Side, Site, Position Yes -Correct Procedure Yes -Procedure Performed Yes -Type of Procedure Debridement -Clinical Debridement Subcutaneous -Tissue Removed Subcutaneous -Post Debridement (cm) - Length 1.8 -Post Debridement (cm) - Width 1.5 -Post Debridement (cm) - Depth 0.2 -Total Square (Post) (cm) 2.70 -Area of Debridement (cm) - Length 1.8 -Area of Debridement (cm) - Width 1.5 -Total Square (Area) (cm) 2.70 -Tunneling No -Undermining/Tunneling No -Circular Undermining No -Wound/Ulcer Outcome Not Healed -Ulcer Cleansing Rinsed/ Irrigated with Saline -Foul Odor after Cleansing No -Bioengineered Tissue No -Bleeding Controlled with Pressure -Treatment Response Procedure Tolerated Well -Offloading No -Debridement - Subq, 1st 20sq cm Yes #11 Medial Inferior LLE -Time 09:22 -Correct Patient Yes -Correct Side, Site, Position Yes -Correct Procedure Yes -Procedure Performed Yes -Type of Procedure Debridement -Clinical Debridement Subcutaneous -Tissue Removed Subcutaneous -Post Debridement (cm) - Length 4.0 -Post Debridement (cm) - Width 3.8 -Post Debridement (cm) - Depth 0.3 -Total Square (Post) (cm) 15.20 -Area of Debridement (cm) - Length 4.0 -Area of Debridement (cm) - Width 3.8 -Total Square (Area) (cm) 15.20 -Tunneling No -Undermining/Tunneling No -Circular Undermining No -Wound/Ulcer Outcome Not Healed -Ulcer Cleansing Rinsed/ Irrigated with Saline -Foul Odor after Cleansing No -Bioengineered Tissue No -Bleeding Controlled with Pressure -Treatment Response Procedure Tolerated Well -Offloading No -Debridement - Subq, 20sq cm No #10 Left Medial Ankle -Time 09:22 -Correct Patient Yes -Correct Side, Site, Position Yes -Correct Procedure Yes -Procedure Performed Yes -Type of Procedure Debridement -Clinical Debridement Subcutaneous -Tissue Removed Subcutaneous -Post Debridement (cm) - Length 5.0 -Post Debridement (cm) - Width 4.0 -Post Debridement (cm) - Depth 0.2 -Total Square (Post) (cm) 20.00 -Area of Debridement (cm) - Length 5.0 -Area of Debridement (cm) - Width 4.0 -Total Square (Area) (cm) 20.00 -Tunneling No -Undermining/Tunneling No -Circular Undermining No -Wound/Ulcer Outcome Not Healed -Ulcer Cleansing Rinsed/ Irrigated with Saline -Foul Odor after Cleansing No -Bioengineered Tissue No -Bleeding Controlled with Pressure -Treatment Response Procedure Tolerated Well -Offloading No -Debridement - Subq, 1st 20sq cm No Pain Scale: 0-10 Numeric Is Patient Pain Free? Yes Additional Wound Wound debrided: Left Lower Extremity ( Inferior ) Type of Debridement: Excisional debridement Anesthesia Used: 4% Lidocaine Solution Depth: Down to and including healthy tissue and in the subcutaneous layer Percentage of wound debrided: 100 Instrument Used: 5mm curette Tissue Removed: Slough and devitalized tissue Severity: Fat Layer Exposed Amount of bleeding with debridement: Mild Bleeding Controlled with: Pressure Patient tolerated procedure: Patient tolerated procedure well Additional Wound Wound debrided: Left Lower Extremity ( Superior ) Type of Debridement: Excisional debridement Anesthesia Used: 4% Lidocaine Solution Depth: Down to and including healthy tissue and in the subcutaneous layer Percentage of wound debrided: 100 Instrument Used: 5mm curette Tissue Removed: Slough and devitalized tissue Severity: Fat Layer Exposed Amount of bleeding with debridement: Mild Bleeding Controlled with: Pressure Patient tolerated procedure: Patient tolerated procedure well Assessment/Plan Assessment/Plan (1) Ulcer of left lower extremity with fat layer exposed: CODE(S): L97.922 - Non-pressure chronic ulcer of unspecified part of left lower leg with fat layer exposed (2) PVD (peripheral vascular disease): CODE(S): I73.9 - Peripheral vascular disease, unspecified (3) Chronic venous insufficiency: CODE(S): I87.2 - Venous insufficiency (chronic) (peripheral) (4) Delayed wound healing: CODE(S): T14.8XXD - Other injury of unspecified body region, subsequent encounter PLAN: Debridement done as documented above, procedure was well-tolerated. Clinically, no signs of infection. As above, he however reports increased drainage and he is concerned that there might be. He has been approved for 10 applications of [employer] from [employer]. Initial application done to the inferior leg ulcer, covered with Adaptic touch. For now continue Aquacel silver and care max care to left medial ankle and superior ulcers, change daily to twice daily depending on drainage. He was strongly advised to comply with this. Also advised to call vascular surgery, patient states that they did not call him back after his initial visit. Continue use of compression stockings, leg elevation and exercise. Increased protein intake, protein supplements, zinc and vitamin C also recommended. Continue multivitamins. Alcohol cessation commended. We have also discussed the possibility for Plastic surgery referral for graft closure. Prescription for clindamycin 300 mg 3 times daily for a week sent. He has tolerated this in the past. Strongly advised to use probiotics while on clindamycin. He voiced understanding. His questions were answered and was advised to call with any further questions or concerns. Follow-up in 1 week. This note was generated with [employer] dictation software. It may contain incorrect words, spelling, and punctuation that were not noted in checking the note before signing.
[2022-03-09 09:25] VITALS: BP 147/60; PULSE 94; RESP 18; TEMP 36.3; BMI 31.4
--- NOTE | 2022-03-09 10:48 | PN.PCM_ITS ---
History of Present Illness Date of Service: 03/09/22 Chief Complaint: ulcers to the left lower leg History of Wound: This is a 54-year-old male presents to wound healing center with a long-standing history of chronic venous insufficiency, chronic venous hypertension, lower extremity edema, lower extremity pain, and chronic left lower extremity ulcer. The patient has previously undergone endovenous laser ablation of the left and right great saphenous vein, the small saphenous vein, the left accessory saphenous vein, and an incompetent left calf sedimentationist vein located 15 cm proximal to the left medial malleolus. He is currently wearing graduated compression stockings which are documented to be 20-30 mmHg compression and these are thigh high. He reports great compliance with use. He is also had previous arterial work-up with no intervention recommended by letter, his vascular surgeon. He denies taking nutritional supplementation. He saw dermatology and had a biopsy of the ulcer site. He also was previously treated by infectious disease for various contaminations and infections. He is not antibiotics at this time nor does he have any redness or odor coming from the wound. He denies fever, chill, nausea, vomiting, loss of appetite. Progress of Wound: No significant change in size but wound bed looks better especially the inferior Left leg ulcer which had affinity applied. Subjective Subjective No new concerns. Objective Data Objective Data Vital Signs: Vital Signs Temp Pulse Resp BP Pulse Ox 97.3 F L 94 18 147/60 H 99 03/09/22 09:25 03/09/22 09:25 03/09/22 09:25 03/09/22 09:25 02/26/22 00:27 Oxygen Delivery Method Room Air Body Mass Index (BMI) 31.4 Charges/Coding Procedures Integumentary 111xxx-113xx: 74365 Lakeisha subq tissue 20 sq cm/< Add On Codes: 49045 Lakeisha subq tissue add-on Physical Exam Const alert, oriented x3 and no apparent distress General Appearance: cooperative and comfortable Orientation / Consciousness: awake HEENT normocephalic Head and Scalp: normal to inspection, normocephalic and atraumatic Face and Sinus: normal facial exam Eyes EOMs intact bilaterally Neck full ROM and supple General: normal visual inspection Resp normal respiratory effort Effort and Inspection: able to speak in complete sentences GI non-tender Extremity normal to inspection General Extremity: edema Skin Wounds: wounds noted Neuro oriented x3 and CN's II-XII intact bilaterally Psych mental status grossly normal Appearance: grossly normal Debridement Note Debridement Note Wound debrided: Left Medial ankle Type of Debridement: Excisional debridement Anesthesia Used: 4% Lidocaine Solution Depth: Down to and including healthy tissue and in the subcutaneous layer Percentage of wound debrided: 100 Instrument Used: 5mm curette Tissue Removed: Slough and devitalized tissue Severity: Fat Layer Exposed Amount of bleeding with debridement: Mild Bleeding Controlled with: Pressure Patient tolerated procedure: Patient tolerated procedure well Post-Debridement Measurements and Additional Note: Post-Debridement Measurements/Treatment - Nurse 1 - General Ulcer Assessment Start: 03/02/22 09:04 Freq: Status: Active Protocol: SHANTA Activity Type Activity Date Activity User E-Sign Co-Sign Detail Recorded Client Recorded Date Recorded By Document 03/02/22 09:04 [facility] [id number] 03/02/22 09:11 [facility] Document 03/09/22 09:25 [id number] 03/09/22 09:33 RB 03/02/22 03/09/22 09:04 09:25 - Today's Visit Information Type of service Follow-up Visit Follow-up Visit (Physician/CASTING MACHINE SET UP OPERATOR (Physician/CASTING MACHINE SET UP OPERATOR ) ) Arrival Mode Ambulatory Ambulatory Transfer Assistance None None Patient Identification Verified (Name & Yes Yes ) Patient Requires Transmission-Based No No Precautions Height and Weight Body Mass Index (BMI) 31.4 31.4 BMI Classification Obese Obese Vital Signs Temperature (97.8 F-99.1 F) 97 F L 97.3 F L Temperature Source Temporal Temporal Pulse Rate (60-100) 91 94 Pulse Location Monitor Monitor Respiratory Rate (12-18) 16 18 Respiratory rate source Observation Observation Oxygen Delivery Method Room Air Blood Pressure (90/60-120/80) 157/84 H 147/60 H Blood Pressure Mean (mm Hg) 108 89 Source Monitor Monitor Position Sitting Sitting Blood Pressure Location Left Arm Left Arm History Since Last Visit- (Skip if this is Patient's initial visit) Have you changed medications since your No last visit? Any new allergies or adverse reactions No Had a fall/change in ADL's that may No increase risk of falls Signs or symptoms of abuse and/or No neglect since last visit Have you been in the hospital since your No last visit? Has dressing in place as prescribed Yes Has compression in place as prescribed Yes Has offloadiing in place as prescribed N/A Experienced any changes in pain level or No management Left Footwear Regular Shoe Right Footwear Regular Shoe Pain Scale: 0-10 Numeric Is Patient Pain Free? Yes Yes WC - Nurse 1 - General Ulcer Measurement Start: 03/02/22 09:04 Freq: Status: Active Protocol: Activity Type Activity Date Activity User E-Sign Co-Sign Detail Recorded Client Recorded Date Recorded By Document 03/02/22 09:04 [facility] [id number] 03/02/22 09:11 [facility] Document 03/09/22 09:25 RB [id number] 03/09/22 09:33 RB 03/02/22 03/09/22 09:04 09:25 Wound Center Nurse 1 #12 Medial Superior LLE -Combined with other wound No -Current Size (cm) - Length 1.5 1.8 -Current Size (cm) - Width 1.1 1.6 -Current Size (cm) - Depth 0.1 0.2 -Total Square Cm 1.65 2.88 -Date of Last Picture (Recall this 03/02/22 field) -Photo Taken Yes -Epithelialization None Present -Tunneling No No -Undermining/Tunneling No No -Circular Undermining No No -Exudate Amt Medium Large -Exudate Type Purulent Serosanguineous -Wound Margin Distinct, Distinct, Outline Outline Attached Attached -Granulation Amt Large (67-100%) Medium (34-66%) -Granulation Quality [place] -Slough/Fibrin Yes Yes -Necrosis Amt Small (1-33%) Large (67-100%) -Necrotic Tissue Type Adherent Slough Adherent Slough -Structure Exposed N/A -Texture (Ara-wound Skin Appearance) Assessed, Assessed, Scarring Scarring -Moisture (Ara-wound Skin Appearance) Assessed,Dry/ Assessed Scaly -Color (Ara-wound Skin Appearance) Assessed, Assessed Hemosiderin Staining -Temperature (Ara-wound Skin No Abnormality No Abnormality Appearance) (Pt Warm) (Pt Warm) -Tenderness on Palpation (Ara-wound No No Skin Appearance) -Ulcer Cleansing Soap and Water Wound Cleanser -Foul Odor after Cleansing No No -Anesthetic Used 4% Lidocaine 4% Lidocaine Solution Solution #11 Medial Inferior LLE -Combined with other wound No No -Current Size (cm) - Length 3.8 4.5 -Current Size (cm) - Width 4 4 -Current Size (cm) - Depth 0.2 0.2 -Total Square Cm 15.2 18.0 -Date of Last Picture (Recall this 03/02/22 field) -Photo Taken Yes -Epithelialization None Present -Tunneling No No -Undermining/Tunneling No No -Circular Undermining No No -Exudate Amt Medium Large -Exudate Type Purulent Serosanguineous -Wound Margin Distinct, Distinct, Outline Outline Attached Attached -Granulation Amt Medium (34-66%) Medium (34-66%) -Granulation Quality [place] -Slough/Fibrin Yes Yes -Necrosis Amt Medium (34-66%) Medium (34-66%) -Necrotic Tissue Type Adherent Slough Adherent Slough -Structure Exposed N/A -Texture (Ara-wound Skin Appearance) Assessed, Assessed, Scarring Scarring -Moisture (Ara-wound Skin Appearance) Assessed Assessed -Color (Ara-wound Skin Appearance) Assessed, Assessed Hemosiderin Staining -Temperature (Ara-wound Skin No Abnormality No Abnormality Appearance) (Pt Warm) (Pt Warm) -Tenderness on Palpation (Ara-wound No No Skin Appearance) -Ulcer Cleansing Soap and Water Wound Cleanser -Foul Odor after Cleansing No No -Anesthetic Used 4% Lidocaine 4% Lidocaine Solution Solution #10 Left Medial Ankle -Combined with other wound No No -Current Size (cm) - Length 6.6 6.3 -Current Size (cm) - Width 3 5 -Current Size (cm) - Depth 0.2 0.3 -Total Square Cm 19.8 31.5 -Date of Last Picture (Recall this 03/02/22 field) -Photo Taken Yes -Epithelialization None Present -Tunneling No No -Undermining/Tunneling No No -Circular Undermining No No -Exudate Amt Medium Large -Exudate Type Purulent Serosanguineous -Wound Margin Distinct, Distinct, Outline Outline Attached Attached -Granulation Amt Medium (34-66%) Medium (34-66%) -Granulation Quality [place] -Slough/Fibrin Yes Yes -Necrosis Amt Medium (34-66%) Medium (34-66%) -Necrotic Tissue Type Adherent Slough Adherent Slough -Structure Exposed N/A -Texture (Ara-wound Skin Appearance) Assessed, Assessed, Scarring Scarring -Moisture (Ara-wound Skin Appearance) Assessed Assessed -Color (Ara-wound Skin Appearance) Assessed, Assessed Hemosiderin Staining -Temperature (Ara-wound Skin No Abnormality No Abnormality Appearance) (Pt Warm) (Pt Warm) -Tenderness on Palpation (Ara-wound No No Skin Appearance) -Ulcer Cleansing Soap and Water Wound Cleanser -Foul Odor after Cleansing No No -Anesthetic Used 4% Lidocaine 4% Lidocaine Solution Solution Lower Limb Edema Present Yes Left Calf (cm) 37 Left Ankle (cm) 24 WC - Nurse 2 - General Ulcer CM Notes Start: 03/02/22 09:04 Freq: Status: Active Protocol: Activity Type Activity Date Activity User E-Sign Co-Sign Detail Recorded Client Recorded Date Recorded By Document 03/02/22 09:21 MW [id number] 03/02/22 09:37 MW Edit Result 03/02/22 09:21 MW (1) [id number] 03/02/22 14:04 MW Document 03/09/22 09:46 MW [id number] 03/09/22 09:58 MW (1) #12 Medial Superior LLE - Debridement, SubQ, ea addt'l 20sq cm => 1 or part thereof 03/02/22 03/09/22 09:21 09:46 Wound Center Nurse 2 #12 Medial Superior LLE -Time 09: 09:47 -Correct Patient Yes Yes -Correct Side, Site, Position Yes Yes -Correct Procedure Yes Yes -Procedure Performed Yes Yes -Type of Procedure Debridement Debridement -Clinical Debridement Subcutaneous Subcutaneous -Tissue Removed Subcutaneous Subcutaneous -Post Debridement (cm) - Length 1.8 1.8 -Post Debridement (cm) - Width 1.5 1.8 -Post Debridement (cm) - Depth 0.2 0.2 -Total Square (Post) (cm) 2.70 3.24 -Area of Debridement (cm) - Length 1.8 1.8 -Area of Debridement (cm) - Width 1.5 1.8 -Total Square (Area) (cm) 2.70 3.24 -Tunneling No No -Undermining/Tunneling No No -Circular Undermining No No -Wound/Ulcer Outcome Not Healed Not Healed -Ulcer Cleansing Rinsed/ Rinsed/ Irrigated with Irrigated with Saline Saline -Foul Odor after Cleansing No No -Bioengineered Tissue No No -Bleeding Controlled with Pressure Pressure -Treatment Response Procedure Procedure Tolerated Well Tolerated Well -Offloading No No -Debridement - Subq, 1st 20sq cm Yes Yes -Debridement, SubQ, ea addt'l 20sq cm 1 1 or part thereof #11 Medial Inferior LLE -Time 09:22 09:48 -Correct Patient Yes Yes -Correct Side, Site, Position Yes Yes -Correct Procedure Yes Yes -Procedure Performed Yes Yes -Type of Procedure Debridement Debridement -Clinical Debridement Subcutaneous Subcutaneous -Tissue Removed Subcutaneous Subcutaneous -Post Debridement (cm) - Length 4.0 4.0 -Post Debridement (cm) - Width 3.8 4.0 -Post Debridement (cm) - Depth 0.3 0.3 -Total Square (Post) (cm) 15.20 16.00 -Area of Debridement (cm) - Length 4.0 4.0 -Area of Debridement (cm) - Width 3.8 4.0 -Total Square (Area) (cm) 15.20 16.00 -Tunneling No No -Undermining/Tunneling No No -Circular Undermining No No -Wound/Ulcer Outcome Not Healed Not Healed -Ulcer Cleansing Rinsed/ Rinsed/ Irrigated with Irrigated with Saline Saline -Foul Odor after Cleansing No No -Bioengineered Tissue No No -Bleeding Controlled with Pressure Pressure -Treatment Response Procedure Procedure Tolerated Well Tolerated Well -Offloading No No -Debridement - Subq, 1st 20sq cm No No #10 Left Medial Ankle -Time 09:22 09:48 -Correct Patient Yes Yes -Correct Side, Site, Position Yes Yes -Correct Procedure Yes Yes -Procedure Performed Yes Yes -Type of Procedure Debridement Debridement -Clinical Debridement Subcutaneous Subcutaneous -Tissue Removed Subcutaneous Subcutaneous -Post Debridement (cm) - Length 5.0 5.0 -Post Debridement (cm) - Width 4.0 4.3 -Post Debridement (cm) - Depth 0.2 0.2 -Total Square (Post) (cm) 20.00 21.50 -Area of Debridement (cm) - Length 5.0 5.0 -Area of Debridement (cm) - Width 4.0 4.3 -Total Square (Area) (cm) 20.00 21.50 -Tunneling No No -Undermining/Tunneling No No -Circular Undermining No No -Wound/Ulcer Outcome Not Healed Not Healed -Ulcer Cleansing Rinsed/ Rinsed/ Irrigated with Irrigated with Saline Saline -Foul Odor after Cleansing No No -Bioengineered Tissue No No -Bleeding Controlled with Pressure Pressure -Treatment Response Procedure Procedure Tolerated Well Tolerated Well -Offloading No No -Debridement - Subq, 1st 20sq cm No No Pain Scale: 0-10 Numeric Is Patient Pain Free? Yes Yes WC - Nurse 3 - General Ulcer D/C NN Start: 03/02/22 09:04 Freq: Status: Active Protocol: Activity Type Activity Date Activity User E-Sign Co-Sign Detail Recorded Client Recorded Date Recorded By Document 03/02/22 09:48 AK [id number] 03/02/22 09:50 [facility] Document 03/09/22 10:16 DL [id number] 03/09/22 10:20 DL 03/02/22 03/09/22 09:48 10:16 Wound Care Nurse 3 #12 Medial Superior LLE -Ulcer Cleansing Rinsed/ Irrigated with Saline -Foul Odor after Cleansing No -Primary Dressing Applied Aquacel AG 4x4 Aquacel Extra -Other Dressing Abd KerraMax -Primary Dressing Covered/Secured with Dry Gauze, Secured with Tape -Other Covering abd -Aquacel Extra 1 -Aquacel AG 4x4 1 #11 Medial Inferior LLE -Primary Dressing Applied NonAdherent Contact Layer -Other Dressing Graft -Other Covering KerraMax #10 Left Medial Ankle -Ulcer Cleansing Rinsed/ Rinsed/ Irrigated with Irrigated with Saline Saline -Foul Odor after Cleansing No No -Negative Pressure Wound Therapy N/A -Primary Dressing Applied Aquacel AG 4x4 NonAdherent Contact Layer -Other Dressing Aquacel Ex -Primary Dressing Covered/Secured with Dry Gauze, Secured with Tape -Other Covering KerraMacx -Aquacel AG 4x4 0 Left -Stockings Yes Treatment Response Procedure Tolerated Well Pain Scale: 0-10 Numeric Is Patient Pain Free? Yes Yes WC - Visit Discharge Discharge Condition Stable Stable Ambulatory Status Ambulatory Ambulatory Transportation Private Auto Private Auto Medication Reconcilliation completed & Yes provided to patient/care provider Clinical Summary of Care Provided Yes Additional Wound Wound debrided: Left lower extremity ( Inferior ) Type of Debridement: Excisional debridement Anesthesia Used: 4% Lidocaine Solution Depth: Down to and including healthy tissue and in the subcutaneous layer Percentage of wound debrided: 100 Instrument Used: 5mm curette Tissue Removed: Slough and devitalized tissue Severity: Fat Layer Exposed Amount of bleeding with debridement: Mild Bleeding Controlled with: Pressure Patient tolerated procedure: Patient tolerated procedure well Additional Wound Wound debrided: Left Lowere xtremity superior Type of Debridement: Excisional debridement Anesthesia Used: 4% Lidocaine Solution Depth: Down to and including healthy tissue and in the subcutaneous layer Percentage of wound debrided: 100 Instrument Used: 5mm curette Severity: Fat Layer Exposed Amount of bleeding with debridement: Mild Bleeding Controlled with: Pressure Patient tolerated procedure: Patient tolerated procedure well Assessment/Plan Assessment/Plan (1) Ulcer of left lower extremity with fat layer exposed: CODE(S): L97.922 - Non-pressure chronic ulcer of unspecified part of left lower leg with fat layer exposed (2) PVD (peripheral vascular disease): CODE(S): I73.9 - Peripheral vascular disease, unspecified (3) Chronic venous insufficiency: CODE(S): I87.2 - Venous insufficiency (chronic) (peripheral) (4) Delayed wound healing: CODE(S): T14.8XXD - Other injury of unspecified body region, subsequent encounter PLAN: Debridement done as documented above, procedure was well-tolerated. 2nd application of Affinity ( sample ) done to the inferior leg ulcer, covered with Adaptic touch. For now continue Aquacel silver and care max care to left medial ankle and superior ulcers, change daily to twice daily depending on drainage. He was strongly advised to comply with this. Continue use of compression stockings, leg elevation and exercise. Increased protein intake, protein supplements, zinc and vitamin C also recommended. Continue multi vitamins. Alcohol cessation commended. We have also discussed the possibility for Plastic surgery referral for graft closure. His questions were answered and was advised to call with any further questions or concerns. Follow-up in 1 week. This note was generated with [employer] dictation software. It may contain incorrect words, spelling, and punctuation that were not noted in checking the note before signing.
[2022-03-16 09:13] VITALS: BP 169/78; PULSE 80; RESP 18; TEMP 36; BMI 31.4
--- NOTE | 2022-03-16 10:39 | PCM.WC.PN ---
History of Present Illness Date of Service: 03/16/22 Chief Complaint: ulcers to the left lower leg History of Wound: This is a 54-year-old male presents to wound healing center with a long-standing history of chronic venous insufficiency, chronic venous hypertension, lower extremity edema, lower extremity pain, and chronic left lower extremity ulcer. 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 He is currently wearing graduated compression stockings which are documented to be 20-30 mmHg compression and these are thigh high. He reports great compliance with use. He is also had previous arterial work-up with no intervention recommended by letter, his vascular surgeon. He denies taking nutritional supplementation. He saw dermatology and had a biopsy of the ulcer site. He also was previously treated by infectious disease for various contaminations and infections. He is not antibiotics at this time nor does he have any redness or odor coming from the wound. He denies fever, chill, nausea, vomiting, loss of appetite. Progress of Wound: Has had 2 samples of Affinity applied to his left inferior leg ulcer, this continues to look better. No other acute concerns. Objective Data Objective Data Vital Signs: Vital Signs Temp Pulse Resp BP Pulse Ox 96.8 F L 80 18 169/78 H 99 03/16/22 09:13 03/16/22 09:13 03/16/22 09:13 03/16/22 09:13 02/26/22 00:27 Oxygen Delivery Method Room Air Body Mass Index (BMI) 31.4 Charges/Coding Procedures Integumentary 111xxx-113xx: 49430 Lakeisha subq tissue 20 sq cm/< Add On Codes: 01045 Lakeisha subq tissue add-on (x1. Additional square centimeter debrided, please refer to clinical note.) Physical Exam Const alert, oriented x3 and no apparent distress General Appearance: cooperative and comfortable Orientation / Consciousness: awake HEENT normocephalic Head and Scalp: normal to inspection, normocephalic and atraumatic Face and Sinus: normal facial exam Eyes EOMs intact bilaterally Neck full ROM and supple General: normal visual inspection Resp normal respiratory effort Effort and Inspection: able to speak in complete sentences GI non-tender Extremity normal to inspection General Extremity: edema Skin Wounds: wounds noted Neuro oriented x3 and CN's II-XII intact bilaterally Psych mental status grossly normal Appearance: grossly normal Debridement Note Debridement Note Wound debrided: Left medial ankle Type of Debridement: Excisional debridement Anesthesia Used: 4% Lidocaine Solution Depth: Down to and including healthy tissue and in the subcutaneous layer Percentage of wound debrided: 100 Instrument Used: 5mm curette Tissue Removed: Slough and devitalized tissue Severity: Fat Layer Exposed Amount of bleeding with debridement: Mild Bleeding Controlled with: Pressure Patient tolerated procedure: Patient tolerated procedure well Post-Debridement Measurements and Additional Note: Post-Debridement Measurements/Treatment - Nurse 1 - General Ulcer Assessment Start: 03/02/22 09:04 Freq: Status: Active Protocol: SHANTA Activity Type Activity Date Activity User E-Sign Co-Sign Detail Recorded Client Recorded Date Recorded By Document 03/02/22 09:04 [facility] [id number] 03/02/22 09:11 [facility] Document 03/09/22 09:25 RB [id number] 03/09/22 09:33 RB Document 03/16/22 09:13 RB [id number] 03/16/22 09:17 RB 03/02/22 03/09/22 03/16/22 09:04 09:25 09:13 - Today's Visit Information Type of service Follow-up Visit Follow-up Visit Follow-up Visit (Physician/SUPERVISOR COMPONENT ASSEMBLER (Physician/SUPERVISOR COMPONENT ASSEMBLER (Physician/SUPERVISOR COMPONENT ASSEMBLER ) ) ) Arrival Mode Ambulatory Ambulatory Ambulatory Transfer Assistance None None None Patient Identification Verified (Name & Yes Yes Yes ) Patient Requires Transmission-Based No No No Precautions Height and Weight Body Mass Index (BMI) 31.4 31.4 31.4 BMI Classification Obese Obese Obese Vital Signs Temperature (97.8 F-99.1 F) 97 F L 97.3 F L 96.8 F L Temperature Source Temporal Temporal Temporal Pulse Rate (60-100) 91 94 80 Pulse Location Monitor Monitor Monitor Respiratory Rate (12-18) 16 18 18 Respiratory rate source Observation Observation Observation Oxygen Delivery Method Room Air Blood Pressure (90/60-120/80) 157/84 H 147/60 H 169/78 H Blood Pressure Mean (mm Hg) 108 89 108 Source Monitor Monitor Monitor Position Sitting Sitting Semi-Fowlers Blood Pressure Location Left Arm Left Arm Left Arm History Since Last Visit- (Skip if this is Patient's initial visit) Have you changed medications since your No No last visit? Any new allergies or adverse reactions No No Had a fall/change in ADL's that may No No increase risk of falls Signs or symptoms of abuse and/or No No neglect since last visit Have you been in the hospital since your No No last visit? Has dressing in place as prescribed Yes Yes Has compression in place as prescribed Yes Yes Has offloadiing in place as prescribed N/A No Experienced any changes in pain level or No No management Left Footwear Regular Shoe Regular Shoe Right Footwear Regular Shoe Regular Shoe Pain Scale: 0-10 Numeric Is Patient Pain Free? Yes Yes Yes WC - Nurse 1 - General Ulcer Measurement Start: 03/02/22 09:04 Freq: Status: Active Protocol: Activity Type Activity Date Activity User E-Sign Co-Sign Detail Recorded Client Recorded Date Recorded By Document 03/02/22 09:04 [facility] [id number] 03/02/22 09:11 [facility] Document 03/09/22 09:25 RB [id number] 03/09/22 09:33 RB Document 03/16/22 09:13 RB [id number] 03/16/22 09:17 RB 03/02/22 03/09/22 03/16/22 09:04 09:25 09:13 Wound Center Nurse 1 #12 Medial Superior LLE -Combined with other wound No No -Current Size (cm) - Length 1.5 1.8 2 -Current Size (cm) - Width 1.1 1.6 2 -Current Size (cm) - Depth 0.1 0.2 0.2 -Total Square Cm 1.65 2.88 4 -Date of Last Picture (Recall this 03/02/22 field) -Photo Taken Yes -Epithelialization None Present -Tunneling No No No -Undermining/Tunneling No No No -Circular Undermining No No No -Exudate Amt Medium Large Medium -Exudate Type Purulent Serosanguineous Serosanguineous -Wound Margin Distinct, Distinct, Distinct, Outline Outline Outline Attached Attached Attached -Granulation Amt Large (67-100%) Medium (34-66%) Medium (34-66%) -Granulation Quality [place] -Slough/Fibrin Yes Yes Yes -Necrosis Amt Small (1-33%) Large (67-100%) Small (1-33%) -Necrotic Tissue Type Adherent Slough Adherent Slough Adherent Slough -Structure Exposed N/A N/A -Texture (Ara-wound Skin Appearance) Assessed, Assessed, Assessed, Scarring Scarring Scarring -Moisture (Ara-wound Skin Appearance) Assessed,Dry/ Assessed Assessed Scaly -Color (Ara-wound Skin Appearance) Assessed, Assessed Assessed Hemosiderin Staining -Temperature (Ara-wound Skin No Abnormality No Abnormality No Abnormality Appearance) (Pt Warm) (Pt Warm) (Pt Warm) -Tenderness on Palpation (Ara-wound No No No Skin Appearance) -Ulcer Cleansing Soap and Water Wound Cleanser Wound Cleanser -Foul Odor after Cleansing No No No -Anesthetic Used 4% Lidocaine 4% Lidocaine 4% Lidocaine Solution Solution Solution #11 Medial Inferior LLE -Combined with other wound No No No -Current Size (cm) - Length 3.8 4.5 5 -Current Size (cm) - Width 4 4 4.5 -Current Size (cm) - Depth 0.2 0.2 0.3 -Total Square Cm 15.2 18.0 22.5 -Date of Last Picture (Recall this 03/02/22 field) -Photo Taken Yes -Epithelialization None Present -Tunneling No No No -Undermining/Tunneling No No No -Circular Undermining No No No -Exudate Amt Medium Large -Exudate Type Purulent Serosanguineous -Wound Margin Distinct, Distinct, Outline Outline Attached Attached -Granulation Amt Medium (34-66%) Medium (34-66%) Medium (34-66%) -Granulation Quality [place] -Slough/Fibrin Yes Yes Yes -Necrosis Amt Medium (34-66%) Medium (34-66%) Small (1-33%) -Necrotic Tissue Type Adherent Slough Adherent Slough Adherent Slough -Structure Exposed N/A N/A -Texture (Ara-wound Skin Appearance) Assessed, Assessed, Assessed, Scarring Scarring Scarring -Moisture (Ara-wound Skin Appearance) Assessed Assessed Assessed -Color (Ara-wound Skin Appearance) Assessed, Assessed Assessed Hemosiderin Staining -Temperature (Ara-wound Skin No Abnormality No Abnormality No Abnormality Appearance) (Pt Warm) (Pt Warm) (Pt Warm) -Tenderness on Palpation (Ara-wound No No No Skin Appearance) -Ulcer Cleansing Soap and Water Wound Cleanser Wound Cleanser -Foul Odor after Cleansing No No No -Anesthetic Used 4% Lidocaine 4% Lidocaine 4% Lidocaine Solution Solution Solution #10 Left Medial Ankle -Combined with other wound No No No -Current Size (cm) - Length 6.6 6.3 6.5 -Current Size (cm) - Width 3 5 4.3 -Current Size (cm) - Depth 0.2 0.3 0.3 -Total Square Cm 19.8 31.5 27.95 -Date of Last Picture (Recall this 03/02/22 field) -Photo Taken Yes -Epithelialization None Present -Tunneling No No No -Undermining/Tunneling No No No -Circular Undermining No No No -Exudate Amt Medium Large Medium -Exudate Type Purulent Serosanguineous Serosanguineous -Wound Margin Distinct, Distinct, Distinct, Outline Outline Outline Attached Attached Attached -Granulation Amt Medium (34-66%) Medium (34-66%) Medium (34-66%) -Granulation Quality [place] -Slough/Fibrin Yes Yes Yes -Necrosis Amt Medium (34-66%) Medium (34-66%) Small (1-33%) -Necrotic Tissue Type Adherent Slough Adherent Slough Adherent Slough -Structure Exposed N/A N/A -Texture (Ara-wound Skin Appearance) Assessed, Assessed, Assessed, Scarring Scarring Scarring -Moisture (Ara-wound Skin Appearance) Assessed Assessed Assessed -Color (Ara-wound Skin Appearance) Assessed, Assessed Assessed Hemosiderin Staining -Temperature (Ara-wound Skin No Abnormality No Abnormality No Abnormality Appearance) (Pt Warm) (Pt Warm) (Pt Warm) -Tenderness on Palpation (Ara-wound No No No Skin Appearance) -Ulcer Cleansing Soap and Water Wound Cleanser Wound Cleanser -Foul Odor after Cleansing No No No -Anesthetic Used 4% Lidocaine 4% Lidocaine 4% Lidocaine Solution Solution Solution Lower Limb Edema Present Yes Yes Left Calf (cm) 37 36 Left Ankle (cm) 24 24.5 WC - Nurse 2 - General Ulcer CM Notes Start: 03/02/22 09:04 Freq: Status: Active Protocol: Activity Type Activity Date Activity User E-Sign Co-Sign Detail Recorded Client Recorded Date Recorded By Document 03/02/22 09:21 MW [id number] 03/02/22 09:37 MW Edit Result 03/02/22 09:21 MW (1) [id number] 03/02/22 14:04 MW Document 03/09/22 09:46 MW [id number] 03/09/22 09:58 MW Document 03/16/22 09:22 MW [id number] 03/16/22 09:37 MW (1) #12 Medial Superior LLE - Debridement, SubQ, ea addt'l 20sq cm => 1 or part thereof 03/02/22 03/09/22 03/16/22 09:21 09:46 09:22 Wound Center Nurse 2 #12 Medial Superior LLE -Time 09:47 09:25 -Correct Patient Yes Yes Yes -Correct Side, Site, Position Yes Yes Yes -Correct Procedure Yes Yes Yes -Procedure Performed Yes Yes Yes -Type of Procedure Debridement Debridement Debridement -Clinical Debridement Subcutaneous Subcutaneous Subcutaneous -Tissue Removed Subcutaneous Subcutaneous Subcutaneous -Post Debridement (cm) - Length 1.8 1.8 1.8 -Post Debridement (cm) - Width 1.5 1.8 1.5 -Post Debridement (cm) - Depth 0.2 0.2 0.1 -Total Square (Post) (cm) 2.70 3.24 2.70 -Area of Debridement (cm) - Length 1.8 1.8 1.8 -Area of Debridement (cm) - Width 1.5 1.8 1.5 -Total Square (Area) (cm) 2.70 3.24 2.70 -Tunneling No No No -Undermining/Tunneling No No No -Circular Undermining No No No -Wound/Ulcer Outcome Not Healed Not Healed Not Healed -Ulcer Cleansing Rinsed/ Rinsed/ Rinsed/ Irrigated with Irrigated with Irrigated with Saline Saline Saline -Foul Odor after Cleansing No No No -Bioengineered Tissue No No No -Bleeding Controlled with Pressure Pressure Pressure -Treatment Response Procedure Procedure Procedure Tolerated Well Tolerated Well Tolerated Well -Offloading No No No -Debridement - Subq, 1st 20sq cm Yes Yes Yes -Debridement, SubQ, ea addt'l 20sq cm 1 1 or part thereof #11 Medial Inferior LLE -Time : 09:48 09:25 -Correct Patient Yes Yes Yes -Correct Side, Site, Position Yes Yes Yes -Correct Procedure Yes Yes Yes -Procedure Performed Yes Yes Yes -Type of Procedure Debridement Debridement Debridement -Clinical Debridement Subcutaneous Subcutaneous Subcutaneous -Tissue Removed Subcutaneous Subcutaneous Subcutaneous -Post Debridement (cm) - Length 4.0 4.0 4.0 -Post Debridement (cm) - Width 3.8 4.0 4.0 -Post Debridement (cm) - Depth 0.3 0.3 0.2 -Total Square (Post) (cm) 15.20 16.00 16.00 -Area of Debridement (cm) - Length 4.0 4.0 4.0 -Area of Debridement (cm) - Width 3.8 4.0 4.0 -Total Square (Area) (cm) 15.20 16.00 16.00 -Tunneling No No No -Undermining/Tunneling No No No -Circular Undermining No No No -Wound/Ulcer Outcome Not Healed Not Healed Not Healed -Ulcer Cleansing Rinsed/ Rinsed/ Rinsed/ Irrigated with Irrigated with Irrigated with Saline Saline Saline -Foul Odor after Cleansing No No No -Bioengineered Tissue No No No -Bleeding Controlled with Pressure Pressure Pressure -Treatment Response Procedure Procedure Procedure Tolerated Well Tolerated Well Tolerated Well -Offloading No No No -Debridement - Subq, 1st 20sq cm No No No #10 Left Medial Ankle -Time 09: 09:48 09:25 -Correct Patient Yes Yes Yes -Correct Side, Site, Position Yes Yes Yes -Correct Procedure Yes Yes Yes -Procedure Performed Yes Yes Yes -Type of Procedure Debridement Debridement Debridement -Clinical Debridement Subcutaneous Subcutaneous Subcutaneous -Tissue Removed Subcutaneous Subcutaneous Subcutaneous -Post Debridement (cm) - Length 5.0 5.0 5.0 -Post Debridement (cm) - Width 4.0 4.3 4.0 -Post Debridement (cm) - Depth 0.2 0.2 0.2 -Total Square (Post) (cm) 20.00 21.50 20.00 -Area of Debridement (cm) - Length 5.0 5.0 5.0 -Area of Debridement (cm) - Width 4.0 4.3 4.0 -Total Square (Area) (cm) 20.00 21.50 20.00 -Tunneling No No No -Undermining/Tunneling No No No -Circular Undermining No No No -Wound/Ulcer Outcome Not Healed Not Healed Not Healed -Ulcer Cleansing Rinsed/ Rinsed/ Rinsed/ Irrigated with Irrigated with Irrigated with Saline Saline Saline -Foul Odor after Cleansing No No No -Bioengineered Tissue No No No -Bleeding Controlled with Pressure Pressure Pressure -Treatment Response Procedure Procedure Procedure Tolerated Well Tolerated Well Tolerated Well -Offloading No No No -Debridement - Subq, 1st 20sq cm No No No Pain Scale: 0-10 Numeric Is Patient Pain Free? Yes Yes Yes WC - Nurse 3 - General Ulcer D/C NN Start: 03/02/22 09:04 Freq: Status: Active Protocol: Activity Type Activity Date Activity User E-Sign Co-Sign Detail Recorded Client Recorded Date Recorded By Document 03/02/22 09:48 AK [id number] 03/02/22 09:50 [facility] Document 03/09/22 10:16 DL [id number] 03/09/22 10:20 DL Document 03/16/22 09:45 MW [id number] 03/16/22 09:46 MW 03/02/22 03/09/22 03/16/22 09:48 10:16 09:45 Wound Care Nurse 3 #12 Medial Superior LLE -Ulcer Cleansing Rinsed/ Rinsed/ Irrigated with Irrigated with Saline Saline -Foul Odor after Cleansing No No -Negative Pressure Wound Therapy N/A -Primary Dressing Applied Aquacel AG 4x4 Aquacel Extra -Other Dressing Abd KerraMax aquacel ag -Primary Dressing Covered/Secured with Dry Gauze, Secured with Tape -Other Covering abd kerramax care -Aquacel Extra 1 -Aquacel AG 4x4 1 #11 Medial Inferior LLE -Ulcer Cleansing Rinsed/ Irrigated with Saline -Foul Odor after Cleansing No -Negative Pressure Wound Therapy N/A -Primary Dressing Applied NonAdherent Contact Layer -Other Dressing Graft aquacel ag -Other Covering KerraMax kerramax care #10 Left Medial Ankle -Ulcer Cleansing Rinsed/ Rinsed/ Not Cleansed Irrigated with Irrigated with Saline Saline -Foul Odor after Cleansing No No No -Negative Pressure Wound Therapy N/A N/A -Primary Dressing Applied Aquacel AG 4x4 NonAdherent Contact Layer -Other Dressing Aquacel Ex ABD pad -Primary Dressing Covered/Secured with Dry Gauze, Secured with Tape -Other Covering KerraMacx -Aquacel AG 4x4 0 Left -Lotion applied to leg before No compression wrap -Stockings Yes Yes Treatment Response Procedure Procedure Tolerated Well Tolerated Well Pain Scale: 0-10 Numeric Is Patient Pain Free? Yes Yes Yes Teaching: Wound Center Dressing Your Wound -Person Taught Patient -Teaching Method Discussion -Response to teaching Verbalize understanding WC - Visit Discharge Discharge Condition Stable Stable Stable Ambulatory Status Ambulatory Ambulatory Ambulatory Transportation Private Auto Private Auto Private Auto Accompanied by self Medication Reconcilliation completed & Yes No provided to patient/care provider Clinical Summary of Care Provided Yes Yes Additional Wound Wound debrided: Left lower extremity ( Inferior ) Type of Debridement: Excisional debridement Anesthesia Used: 4% Lidocaine Solution Depth: Down to and including healthy tissue and in the subcutaneous layer Percentage of wound debrided: 100 Instrument Used: 5mm curette Tissue Removed: Slough and devitalized tissue Severity: Fat Layer Exposed Amount of bleeding with debridement: Mild Bleeding Controlled with: Pressure Patient tolerated procedure: Patient tolerated procedure well Additional Wound Wound debrided: Left lower extremity ( Superior ) Type of Debridement: Excisional debridement Anesthesia Used: 4% Lidocaine Solution Depth: Down to and including healthy tissue and in the subcutaneous layer Percentage of wound debrided: 100 Instrument Used: 5mm curette Tissue Removed: Slough and devitalized tissue Severity: Fat Layer Exposed Amount of bleeding with debridement: Mild Bleeding Controlled with: Pressure Patient tolerated procedure: Patient tolerated procedure well Assessment/Plan Assessment/Plan (1) Ulcer of left lower extremity with fat layer exposed: CODE(S): L97.922 - Non-pressure chronic ulcer of unspecified part of left lower leg with fat layer exposed (2) PVD (peripheral vascular disease): CODE(S): I73.9 - Peripheral vascular disease, unspecified (3) Chronic venous insufficiency: CODE(S): I87.2 - Venous insufficiency (chronic) (peripheral) (4) Delayed wound healing: CODE(S): T14.8XXD - Other injury of unspecified body region, subsequent encounter PLAN: Debridement done as documented above, procedure was well-tolerated. 3rd application of Affinity sample product ( First application to the left medial ankle )done, covered with Adaptic touch. Promogram also applied to the medial ankle ulcer. For now continue Aquacel silver and care max care to the left inferior and superior ulcers, change daily to twice daily depending on drainage. He was strongly advised to comply with this. Continue use of compression stockings, leg elevation and exercise. Increased protein intake, protein supplements, zinc and vitamin C also recommended. Continue multivitamins. We have also discussed the possibility for Plastic surgery referral for graft closure. His questions were answered and was advised to call with any further questions or concerns. Follow-up in 1 week. This note was generated with [employer] dictation software. It may contain incorrect words, spelling, and punctuation that were not noted in checking the note before signing.
== END 2022-03-28 23:59 | disposition home or self-care (01) ==
LOC: WC 09:00
PROVIDERS: Visit Provider Internal Medicine
DX: I73.9 Peripheral vascular disease, unspecified (principal); L97.322 Non-pressure chronic ulcer of left ankle with fat layer exposed; I87.2 Venous insufficiency (chronic) (peripheral); R60.0 Localized edema
CPT/HCPCS: 11042; 11045

== ENCOUNTER 2022-04-20 09:00 | Outpatient (RCR) | payer BC, SELFPAY ==
[2022-03-29 00:43] VITALS: BP 169/78; PULSE 80; RESP 18; TEMP 36; O2SAT 99; BMI 31.4
[2022-03-30 09:04] VITALS: BP 138/96; PULSE 87; RESP 18; TEMP 36.4; BMI 31.4
--- NOTE | 2022-03-30 12:09 | PN.PCM_ITS ---
History of Present Illness Date of Service: 03/30/22 Chief Complaint: ulcers to the left lower leg History of Wound: This is a 54-year-old male presents to wound healing center with a long-standing history of chronic venous insufficiency, chronic venous hypertension, lower extremity edema, lower extremity pain, and chronic left lower extremity ulcer. The patient has previously undergone endovenous laser ablation of the left and right great saphenous vein, the small saphenous vein, the left accessory saphenous vein, and an incompetent left calf meter/relay craftsman vein located 15 cm proximal to the left medial malleolus. He is currently wearing graduated compression stockings which are documented to be 20-30 mmHg compression and these are thigh high. He reports great compliance with use. He is also had previous arterial work-up with no intervention recommended by letter, his vascular surgeon. He denies taking nutritional supplementation. He saw dermatology and had a biopsy of the ulcer site. He also was previously treated by infectious disease for various contaminations and infections. He is not antibiotics at this time nor does he have any redness or odor coming from the wound. He denies fever, chill, nausea, vomiting, loss of appetite. Progress of Wound: Has had 3 samples of Affinity applied to his left inferior leg ulcer. He missed his last application for the 4th application so this was discarded. Reports increased drainage especially from the medial ankle and inferior Subjective Subjective No new concerns. Objective Data Objective Data Vital Signs: Vital Signs Temp Pulse Resp BP Pulse Ox 97.5 F L 87 18 138/96 H 99 03/30/22 09:04 03/30/22 09:04 03/30/22 09:04 03/30/22 09:04 03/29/22 00:43 Body Mass Index (BMI) 31.4 Charges/Coding Procedures Integumentary 111xxx-113xx: 00180 Lakeisha subq tissue 20 sq cm/< Add On Codes: 85148 Lakeisha subq tissue add-on (Additional square centimeter debrided, please refer to clinical note.) Physical Exam Const alert, oriented x3 and no apparent distress General Appearance: cooperative and comfortable Orientation / Consciousness: awake HEENT normocephalic Head and Scalp: normal to inspection, normocephalic and atraumatic Face and Sinus: normal facial exam Eyes EOMs intact bilaterally Neck full ROM and supple General: normal visual inspection Resp normal respiratory effort Effort and Inspection: able to speak in complete sentences GI non-tender Extremity normal to inspection General Extremity: edema Skin Wounds: wounds noted Neuro oriented x3 and CN's II-XII intact bilaterally Psych mental status grossly normal Appearance: grossly normal Debridement Note Debridement Note Wound debrided: Left medial ankle Type of Debridement: Excisional debridement Anesthesia Used: 4% Lidocaine Solution Depth: Down to and including healthy tissue and in the subcutaneous layer Percentage of wound debrided: 100 Instrument Used: 7mm curette Tissue Removed: Slough and devitalized tissue Severity: Fat Layer Exposed Amount of bleeding with debridement: Mild Bleeding Controlled with: Pressure Patient tolerated procedure: Patient tolerated procedure well Post-Debridement Measurements and Additional Note: Post-Debridement Measurements/Treatment WC - Nurse 1 - General Ulcer Assessment Start: 03/30/22 09:04 Freq: Status: Active Protocol: SHANTA Activity Type Activity Date Activity User E-Sign Co-Sign Detail Recorded Client Recorded Date Recorded By Document 03/30/22 09:04 DL [id number] 03/30/22 09:16 DL 03/30/22 09:04 WC - Today's Visit Information Type of service 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 ) Arrival Mode Ambulatory Transfer Assistance None Patient Identification Verified (Name & Yes ) Patient Requires Transmission-Based No Precautions Height and Weight Body Mass Index (BMI) 31.4 BMI Classification Obese Vital Signs Temperature (97.8 F-99.1 F) 97.5 F L Temperature Source Temporal Pulse Rate (60-100) 87 Pulse Location Monitor Respiratory Rate (12-18) 18 Respiratory rate source Observation Blood Pressure (90/60-120/80) 138/96 H Blood Pressure Mean (mm Hg) 110 Source Monitor History Since Last Visit- (Skip if this is Patient's initial visit) Have you changed medications since your No last visit? Any new allergies or adverse reactions No Had a fall/change in ADL's that may No increase risk of falls Signs or symptoms of abuse and/or No neglect since last visit Have you been in the hospital since your No last visit? Has dressing in place as prescribed Yes Has compression in place as prescribed Yes Has offloadiing in place as prescribed N/A Experienced any changes in pain level or No management Pain Scale: 0-10 Numeric Is Patient Pain Free? No KIMBERLY - Nurse 1 - General Ulcer Measurement Start: 03/30/22 09:04 Freq: Status: Active Protocol: Activity Type Activity Date Activity User E-Sign Co-Sign Detail Recorded Client Recorded Date Recorded By Document 03/30/22 09:04 TIFFANY [id number] 03/30/22 09:16 TIFFANY 03/30/22 09:04 Wound Center Nurse 1 #12 Medial Superior LLE -Current Size (cm) - Length 1.9 -Current Size (cm) - Width 1.6 -Current Size (cm) - Depth 0.1 -Total Square Cm 3.04 -Photo Taken No -Exudate Amt Small -Wound Margin Distinct, Outline Attached -Granulation Amt Medium (34-66%) -Granulation Quality Red -Necrosis Amt Medium (34-66%) -Necrotic Tissue Type Adherent Slough -Structure Exposed N/A -Texture (Ara-wound Skin Appearance) Scarring -Moisture (Ara-wound Skin Appearance) Dry/Scaly -Color (Ara-wound Skin Appearance) Hemosiderin Staining -Temperature (Ara-wound Skin No Abnormality Appearance) (Pt Warm) -Ulcer Cleansing Soap and Water -Foul Odor after Cleansing No -Anesthetic Used 4% Lidocaine Solution #11 Medial Inferior LLE -Current Size (cm) - Length 4.7 -Current Size (cm) - Width 3.8 -Current Size (cm) - Depth 0.2 -Total Square Cm 17.86 -Photo Taken No -Exudate Amt Medium -Exudate Type Serosanguineous -Wound Margin Distinct, Outline Attached -Granulation Amt Medium (34-66%) -Granulation Quality Red -Necrosis Amt Medium (34-66%) -Necrotic Tissue Type Adherent Slough -Structure Exposed N/A -Texture (Ara-wound Skin Appearance) Scarring -Moisture (Ara-wound Skin Appearance) Dry/Scaly -Color (Ara-wound Skin Appearance) Hemosiderin Staining -Temperature (Ara-wound Skin No Abnormality Appearance) (Pt Warm) -Tenderness on Palpation (Ara-wound No Skin Appearance) -Ulcer Cleansing Soap and Water -Foul Odor after Cleansing No -Anesthetic Used 4% Lidocaine Solution #10 Left Medial Ankle -Current Size (cm) - Length 6 -Current Size (cm) - Width 7.4 -Current Size (cm) - Depth 0.3 -Total Square Cm 44.4 -Photo Taken No -Exudate Amt Medium -Exudate Type Yellow/Green -Wound Margin Distinct, Outline Attached -Granulation Amt Medium (34-66%) -Granulation Quality Red -Necrosis Amt Medium (34-66%) -Necrotic Tissue Type Adherent Slough -Structure Exposed N/A -Texture (Ara-wound Skin Appearance) Scarring -Moisture (Ara-wound Skin Appearance) Dry/Scaly -Color (Ara-wound Skin Appearance) Hemosiderin Staining -Temperature (Ara-wound Skin No Abnormality Appearance) (Pt Warm) -Tenderness on Palpation (Ara-wound No Skin Appearance) -Ulcer Cleansing Soap and Water -Foul Odor after Cleansing No -Anesthetic Used 4% Lidocaine Solution Left Calf (cm) 34 Left Ankle (cm) 28.4 WC - Nurse 2 - General Ulcer CM Notes Start: 03/30/22 09:04 Freq: Status: Active Protocol: Activity Type Activity Date Activity User E-Sign Co-Sign Detail Recorded Client Recorded Date Recorded By Document 03/30/22 09:23 MW [id number] 03/30/22 09:38 MW 03/30/22 09:23 Wound Center Nurse 2 #12 Medial Superior LLE -Time 09:23 -Correct Patient Yes -Correct Side, Site, Position Yes -Correct Procedure Yes -Procedure Performed Yes -Type of Procedure Debridement -Clinical Debridement Subcutaneous -Tissue Removed Subcutaneous -Post Debridement (cm) - Length 1.7 -Post Debridement (cm) - Width 1.5 -Post Debridement (cm) - Depth 0.1 -Total Square (Post) (cm) 2.55 -Area of Debridement (cm) - Length 1.7 -Area of Debridement (cm) - Width 1.5 -Total Square (Area) (cm) 2.55 -Tunneling No -Undermining/Tunneling No -Circular Undermining No -Wound/Ulcer Outcome Not Healed -Ulcer Cleansing Rinsed/ Irrigated with Saline -Foul Odor after Cleansing No -Bioengineered Tissue No -Bleeding Controlled with Pressure -Treatment Response Procedure Tolerated Well -Offloading No -Debridement - Subq, 1st 20sq cm Yes -Debridement, SubQ, ea addt'l 20sq cm 2 or part thereof #11 Medial Inferior LLE -Time 09:24 -Correct Patient Yes -Correct Side, Site, Position Yes -Correct Procedure Yes -Procedure Performed Yes -Type of Procedure Debridement -Clinical Debridement Subcutaneous -Tissue Removed Subcutaneous -Post Debridement (cm) - Length 4.5 -Post Debridement (cm) - Width 4.0 -Post Debridement (cm) - Depth 0.3 -Total Square (Post) (cm) 18.00 -Area of Debridement (cm) - Length 4.5 -Area of Debridement (cm) - Width 4.0 -Total Square (Area) (cm) 18.00 -Tunneling No -Undermining/Tunneling No -Circular Undermining No -Wound/Ulcer Outcome Not Healed -Ulcer Cleansing Rinsed/ Irrigated with Saline -Foul Odor after Cleansing No -Bioengineered Tissue No -Bleeding Controlled with Pressure -Treatment Response Procedure Tolerated Well -Offloading No -Debridement - Subq, 1st 20sq cm No #10 Left Medial Ankle -Time 09:24 -Correct Patient Yes -Correct Side, Site, Position Yes -Correct Procedure Yes -Procedure Performed Yes -Type of Procedure Debridement -Clinical Debridement Subcutaneous -Tissue Removed Subcutaneous -Post Debridement (cm) - Length 5.0 -Post Debridement (cm) - Width 4.0 -Post Debridement (cm) - Depth 0.3 -Total Square (Post) (cm) 20.00 -Area of Debridement (cm) - Length 5.0 -Area of Debridement (cm) - Width 4.0 -Total Square (Area) (cm) 20.00 -Tunneling No -Undermining/Tunneling No -Circular Undermining No -Wound/Ulcer Outcome Not Healed -Ulcer Cleansing Rinsed/ Irrigated with Saline -Foul Odor after Cleansing No -Bioengineered Tissue No -Offloading No -Debridement - Subq, 1st 20sq cm No Pain Scale: 0-10 Numeric Is Patient Pain Free? Yes - Nurse 3 - General Ulcer D/C NN Start: 03/30/22 09:04 Freq: Status: Active Protocol: Activity Type Activity Date Activity User E-Sign Co-Sign Detail Recorded Client Recorded Date Recorded By Document 03/30/22 09:49 [facility] [id number] 03/30/22 09:51 [facility] 03/30/22 09:49 Wound Care Nurse 3 #12 Medial Superior LLE -Ulcer Cleansing Rinsed/ Irrigated with Saline -Foul Odor after Cleansing No -Primary Dressing Applied Aquacel AG 4x4, Other -Other Dressing ATB OINT -Other Covering KERRAMAX -Aquacel AG 4x4 1 #11 Medial Inferior LLE -Ulcer Cleansing Rinsed/ Irrigated with Saline -Foul Odor after Cleansing No -Primary Dressing Applied NonAdherent Contact Layer -Other Dressing AFFINITY -Other Covering KERRAMAX #10 Left Medial Ankle -Ulcer Cleansing Rinsed/ Irrigated with Saline -Foul Odor after Cleansing No -Primary Dressing Applied Aquacel AG 4x4, Other -Other Dressing ATB OINT -Other Covering KERRAMAX/ABD -Aquacel AG 4x4 0 Left -Other PT APPLIED OWN COMPRESSION Treatment Response Procedure Tolerated Well Pain Scale: 0-10 Numeric Is Patient Pain Free? Yes WC - Visit Discharge Discharge Condition Stable Ambulatory Status Ambulatory Transportation Private Auto Additional Wound Wound debrided: Left lower extremity inferior Type of Debridement: Excisional debridement Anesthesia Used: 4% Lidocaine Solution Depth: Down to and including healthy tissue Percentage of wound debrided: 100 Instrument Used: 5mm curette Tissue Removed: Slough and devitalized tissue Severity: Fat Layer Exposed Amount of bleeding with debridement: Mild Bleeding Controlled with: Pressure Patient tolerated procedure: Patient tolerated procedure well Additional Wound Wound debrided: Left lower extremity ( Superior ) Type of Debridement: Excisional debridement Anesthesia Used: 4% Lidocaine Solution Depth: Down to and including healthy tissue and in the subcutaneous layer Percentage of wound debrided: 100 Instrument Used: 5mm curette Tissue Removed: Slough and devitalized tissue Severity: Fat Layer Exposed Amount of bleeding with debridement: Mild Bleeding Controlled with: Pressure Patient tolerated procedure: Patient tolerated procedure well Assessment/Plan Assessment/Plan (1) Ulcer of left lower extremity with fat layer exposed: CODE(S): L97.922 - Non-pressure chronic ulcer of unspecified part of left lower leg with fat layer exposed (2) PVD (peripheral vascular disease): CODE(S): I73.9 - Peripheral vascular disease, unspecified (3) Chronic venous insufficiency: CODE(S): I87.2 - Venous insufficiency (chronic) (peripheral) (4) Delayed wound healing: CODE(S): T14.8XXD - Other injury of unspecified body region, subsequent encounter PLAN: Debridement done as documented above, procedure was well-tolerated. As above, has had 5 samples in total but last week's was discarded due to patient not been able to make it to the wound center. 4th application of Affinity sample product done, covered with Adaptic touch. For now continue Aquacel silver and care max care to the left medial ankle and superior ulcers, change daily to twice daily depending on drainage. Areas of maceration noted. Again it was reiterated that he should change it if dressing is soaked he was strongly advised to comply with this. Topical mupirocin also prescribed. Instructions given on how to use it. Continue use of compression stockings, leg elevation and exercise. Increased protein intake, protein supplements, zinc and vitamin C also recommended. Continue multivitamins. We have also discussed the possibility for Plastic surgery referral for graft closure. His questions were answered and was advised to call with any further questions or concerns. Follow-up in 1 week. This note was generated with [employer] dictation software. It may contain incorrect words, spelling, and punctuation that were not noted in checking the note before signing.
[2022-04-06 09:33] VITALS: BP 141/68; PULSE 90; RESP 16; TEMP 35.9; BMI 31.4
--- NOTE | 2022-04-06 10:20 | PN.PCM_ITS ---
History of Present Illness Date of Service: 04/06/22 Chief Complaint: ulcers to the left lower leg History of Wound: This is a 54-year-old male presents to wound healing center with a long-standing history of chronic venous insufficiency, chronic venous hypertension, lower extremity edema, lower extremity pain, and chronic left lower extremity ulcer. The patient has previously undergone endovenous laser ablation of the left and right great saphenous vein, the small saphenous vein, the left accessory saphenous vein, and an incompetent left calf lumber mover vein located 15 cm proximal to the left medial malleolus. He is currently wearing graduated compression stockings which are documented to be 20-30 mmHg compression and these are thigh high. He reports great compliance with use. He is also had previous arterial work-up with no intervention recommended by letter, his vascular surgeon. He denies taking nutritional supplementation. He saw dermatology and had a biopsy of the ulcer site. He also was previously treated by infectious disease for various contaminations and infections. He is not antibiotics at this time nor does he have any redness or odor coming from the wound. He denies fever, chill, nausea, vomiting, loss of appetite. Progress of Wound: Has had 4 samples of Affinity applied to his left inferior leg ulcer. No sample available today because he is up for reevaluation. Has been applying Aquacel silver to the other ulcers. Subjective Subjective No new concerns at this time Objective Data Objective Data Vital Signs: Vital Signs Temp Pulse Resp BP Pulse Ox 96.7 F L 90 16 141/68 H 99 04/06/22 09:33 04/06/22 09:33 04/06/22 09:33 04/06/22 09:33 03/29/22 00:43 Oxygen Delivery Method Room Air Body Mass Index (BMI) 31.4 Charges/Coding Procedures Integumentary 111xxx-113xx: [id number] Lakeisha subq tissue 20 sq cm/< Add On Codes: 78994 Lakeisha subq tissue add-on (x2 additional square centimeter debrided, please refer to clinical note.) Physical Exam Const alert, oriented x3 and no apparent distress General Appearance: cooperative and comfortable Orientation / Consciousness: awake HEENT normocephalic Head and Scalp: normal to inspection, normocephalic and atraumatic Face and Sinus: normal facial exam Eyes EOMs intact bilaterally Neck full ROM and supple General: normal visual inspection Resp normal respiratory effort Effort and Inspection: able to speak in complete sentences GI non-tender Extremity normal to inspection General Extremity: edema Skin Wounds: wounds noted Neuro oriented x3 and CN's II-XII intact bilaterally Psych mental status grossly normal Appearance: grossly normal Debridement Note Debridement Note Wound debrided: Left medial ankle Type of Debridement: Excisional debridement Anesthesia Used: 4% Lidocaine Solution Depth: Down to and including healthy tissue and in the subcutaneous layer Percentage of wound debrided: 100 Instrument Used: 5mm curette Tissue Removed: Slough and devitalized tissue Severity: Fat Layer Exposed Amount of bleeding with debridement: Mild Bleeding Controlled with: Pressure Patient tolerated procedure: Patient tolerated procedure well Post-Debridement Measurements and Additional Note: Post-Debridement Measurements/Treatment - Nurse 1 - General Ulcer Assessment Start: 03/30/22 09:04 Freq: Status: Active Protocol: SHANTA Activity Type Activity Date Activity User E-Sign Co-Sign Detail Recorded Client Recorded Date Recorded By Document 03/30/22 09:04 DL [id number] 03/30/22 09:16 DL Document 04/06/22 09:33 [facility] [id number] 04/06/22 09:48 BM 03/30/22 04/06/22 09:04 09:33 - Today's Visit Information Type of service Follow-up Visit Follow-up Visit (Physician/[facility] TECHNICAL ARCHITECT (Physician/[facility] TECHNICAL ARCHITECT ) ) Arrival Mode Ambulatory Ambulatory Transfer Assistance None None Patient Identification Verified (Name & Yes Yes ) Patient Requires Transmission-Based No No Precautions Height and Weight Body Mass Index (BMI) 31.4 31.4 BMI Classification Obese Obese Vital Signs Temperature (97.8 F-99.1 F) 97.5 F L 96.7 F L Temperature Source Temporal Temporal Pulse Rate (60-100) 87 90 Pulse Location Monitor Monitor Respiratory Rate (12-18) 18 16 Respiratory rate source Observation Observation Oxygen Delivery Method Room Air Blood Pressure (90/60-120/80) 138/96 H 141/68 H Blood Pressure Mean (mm Hg) 110 92 Source Monitor Monitor Position Sitting Blood Pressure Location Left Arm History Since Last Visit- (Skip if this is Patient's initial visit) Have you changed medications since your No No last visit? Any new allergies or adverse reactions No No Had a fall/change in ADL's that may No No increase risk of falls Signs or symptoms of abuse and/or No No neglect since last visit Have you been in the hospital since your No No last visit? Has dressing in place as prescribed Yes Yes Has compression in place as prescribed Yes Yes Has offloadiing in place as prescribed N/A N/A Experienced any changes in pain level or No No management Left Footwear Regular Shoe Right Footwear Regular Shoe Pain Scale: 0-10 Numeric Is Patient Pain Free? No Yes WC - Nurse 1 - General Ulcer Measurement Start: 03/30/22 09:04 Freq: Status: Active Protocol: Activity Type Activity Date Activity User E-Sign Co-Sign Detail Recorded Client Recorded Date Recorded By Document 03/30/22 09:04 DL [id number] 03/30/22 09:16 DL Document 04/06/22 09:33 BM [id number] 04/06/22 09:48 BMF 03/30/22 04/06/22 09:04 09:33 Wound Center Nurse 1 #12 Medial Superior LLE -Combined with other wound No -Current Size (cm) - Length 1.9 1.6 -Current Size (cm) - Width 1.6 1.7 -Current Size (cm) - Depth 0.1 0.1 -Total Square Cm 3.04 2.72 -Date of Last Picture (Recall this 04/06/22 field) -Photo Taken No Yes -Epithelialization None Present -Tunneling No -Undermining/Tunneling No -Circular Undermining No -Exudate Amt Small Medium -Exudate Type Serosanguineous -Wound Margin Distinct, Distinct, Outline Outline Attached Attached -Granulation Amt Medium (34-66%) Large (67-100%) -Granulation Quality Red Red -Slough/Fibrin No -Necrosis Amt Medium (34-66%) None Present (0 %) -Necrotic Tissue Type Adherent Slough -Structure Exposed N/A -Texture (Ara-wound Skin Appearance) Scarring Assessed, Scarring -Moisture (Ara-wound Skin Appearance) Dry/Scaly Assessed,Dry/ Scaly -Color (Ara-wound Skin Appearance) Hemosiderin Assessed, Staining Hemosiderin Staining -Temperature (Ara-wound Skin No Abnormality No Abnormality Appearance) (Pt Warm) (Pt Warm) -Tenderness on Palpation (Ara-wound No Skin Appearance) -Ulcer Cleansing Soap and Water Soap and Water -Foul Odor after Cleansing No No -Anesthetic Used 4% Lidocaine 4% Lidocaine Solution Solution #11 Medial Inferior LLE -Combined with other wound No -Current Size (cm) - Length 4.7 5.1 -Current Size (cm) - Width 3.8 4.3 -Current Size (cm) - Depth 0.2 0.2 -Total Square Cm 17.86 21.93 -Date of Last Picture (Recall this 04/06/22 field) -Photo Taken No Yes -Epithelialization None Present -Tunneling No -Undermining/Tunneling No -Circular Undermining No -Exudate Amt Medium Medium -Exudate Type Serosanguineous Serosanguineous -Wound Margin Distinct, Thickened Outline Attached -Granulation Amt Medium (34-66%) Small (1-33%) -Granulation Quality Red Red -Slough/Fibrin Yes -Necrosis Amt Medium (34-66%) Large (67-100%) -Necrotic Tissue Type Adherent Slough Adherent Slough -Structure Exposed N/A -Texture (Ara-wound Skin Appearance) Scarring Assessed, Scarring -Moisture (Ara-wound Skin Appearance) Dry/Scaly Assessed,Dry/ Scaly -Color (Ara-wound Skin Appearance) Hemosiderin Assessed, Staining Hemosiderin Staining -Temperature (Ara-wound Skin No Abnormality No Abnormality Appearance) (Pt Warm) (Pt Warm) -Tenderness on Palpation (Ara-wound No No Skin Appearance) -Ulcer Cleansing Soap and Water Soap and Water -Foul Odor after Cleansing No No -Anesthetic Used 4% Lidocaine 4% Lidocaine Solution Solution #10 Left Medial Ankle -Combined with other wound No -Current Size (cm) - Length 6 6.6 -Current Size (cm) - Width 7.4 6.2 -Current Size (cm) - Depth 0.3 0.2 -Total Square Cm 44.4 40.92 -Date of Last Picture (Recall this 04/06/22 field) -Photo Taken No Yes -Epithelialization None Present -Tunneling No -Undermining/Tunneling No -Circular Undermining No -Exudate Amt Medium Medium -Exudate Type Yellow/Green Serosanguineous -Wound Margin Distinct, Thickened Outline Attached -Granulation Amt Medium (34-66%) Small (1-33%) -Granulation Quality Red Red -Slough/Fibrin Yes -Necrosis Amt Medium (34-66%) Large (67-100%) -Necrotic Tissue Type Adherent Slough Adherent Slough -Structure Exposed N/A -Texture (Ara-wound Skin Appearance) Scarring Assessed, Scarring -Moisture (Ara-wound Skin Appearance) Dry/Scaly Assessed,Dry/ Scaly -Color (Ara-wound Skin Appearance) Hemosiderin Assessed, Staining Hemosiderin Staining -Temperature (Ara-wound Skin No Abnormality No Abnormality Appearance) (Pt Warm) (Pt Warm) -Tenderness on Palpation (Ara-wound No No Skin Appearance) -Ulcer Cleansing Soap and Water Soap and Water -Foul Odor after Cleansing No No -Anesthetic Used 4% Lidocaine 4% Lidocaine Solution Solution Lower Limb Edema Present Yes Left Calf (cm) 34 34.8 Left Ankle (cm) 28.4 23.2 WC - Nurse 2 - General Ulcer CM Notes Start: 03/30/22 09:04 Freq: Status: Active Protocol: Activity Type Activity Date Activity User E-Sign Co-Sign Detail Recorded Client Recorded Date Recorded By Document 03/30/22 09:23 MW [id number] 03/30/22 09:38 MW Document 04/06/22 10:04 MW [id number] 04/06/22 10:13 MW 03/30/22 04/06/22 09:23 10:04 Wound Center Nurse 2 #12 Medial Superior LLE -Time 09:23 10:05 -Correct Patient Yes Yes -Correct Side, Site, Position Yes Yes -Correct Procedure Yes Yes -Procedure Performed Yes Yes -Type of Procedure Debridement Debridement -Clinical Debridement Subcutaneous Subcutaneous -Tissue Removed Subcutaneous Subcutaneous -Post Debridement (cm) - Length 1.7 1.8 -Post Debridement (cm) - Width 1.5 1.7 -Post Debridement (cm) - Depth 0.1 0.1 -Total Square (Post) (cm) 2.55 3.06 -Area of Debridement (cm) - Length 1.7 1.8 -Area of Debridement (cm) - Width 1.5 1.7 -Total Square (Area) (cm) 2.55 3.06 -Tunneling No No -Undermining/Tunneling No No -Circular Undermining No No -Wound/Ulcer Outcome Not Healed Not Healed -Ulcer Cleansing Rinsed/ Rinsed/ Irrigated with Irrigated with Saline Saline -Foul Odor after Cleansing No No -Bioengineered Tissue No No -Bleeding Controlled with Pressure Pressure -Treatment Response Procedure Procedure Tolerated Well Tolerated Well -Offloading No No -Debridement - Subq, 1st 20sq cm Yes Yes -Debridement, SubQ, ea addt'l 20sq cm 2 2 or part thereof #11 Medial Inferior LLE -Time 09:24 10:06 -Correct Patient Yes Yes -Correct Side, Site, Position Yes Yes -Correct Procedure Yes Yes -Procedure Performed Yes Yes -Type of Procedure Debridement Debridement -Clinical Debridement Subcutaneous Subcutaneous -Tissue Removed Subcutaneous Subcutaneous -Post Debridement (cm) - Length 4.5 5.0 -Post Debridement (cm) - Width 4.0 4.0 -Post Debridement (cm) - Depth 0.3 0.3 -Total Square (Post) (cm) 18.00 20.00 -Area of Debridement (cm) - Length 4.5 5.0 -Area of Debridement (cm) - Width 4.0 4.0 -Total Square (Area) (cm) 18.00 20.00 -Tunneling No No -Undermining/Tunneling No No -Circular Undermining No No -Wound/Ulcer Outcome Not Healed Not Healed -Ulcer Cleansing Rinsed/ Rinsed/ Irrigated with Irrigated with Saline Saline -Foul Odor after Cleansing No No -Bioengineered Tissue No No -Bleeding Controlled with Pressure Pressure -Treatment Response Procedure Procedure Tolerated Well Tolerated Well -Offloading No No -Debridement - Subq, 1st 20sq cm No No #10 Left Medial Ankle -Time 09:24 10:06 -Correct Patient Yes Yes -Correct Side, Site, Position Yes Yes -Correct Procedure Yes Yes -Procedure Performed Yes Yes -Type of Procedure Debridement Debridement -Clinical Debridement Subcutaneous Subcutaneous -Tissue Removed Subcutaneous Subcutaneous -Post Debridement (cm) - Length 5.0 5.0 -Post Debridement (cm) - Width 4.0 3.8 -Post Debridement (cm) - Depth 0.3 0.3 -Total Square (Post) (cm) 20.00 19.00 -Area of Debridement (cm) - Length 5.0 5.0 -Area of Debridement (cm) - Width 4.0 3.8 -Total Square (Area) (cm) 20.00 19.00 -Tunneling No No -Undermining/Tunneling No No -Circular Undermining No No -Wound/Ulcer Outcome Not Healed Not Healed -Ulcer Cleansing Rinsed/ Rinsed/ Irrigated with Irrigated with Saline Saline -Foul Odor after Cleansing No No -Bioengineered Tissue No No -Bleeding Controlled with Pressure -Treatment Response Procedure Tolerated Well -Offloading No No -Debridement - Subq, 1st 20sq cm No No Pain Scale: 0-10 Numeric Is Patient Pain Free? Yes Yes WC - Nurse 3 - General Ulcer D/C NN Start: 03/30/22 09:04 Freq: Status: Active Protocol: Activity Type Activity Date Activity User E-Sign Co-Sign Detail Recorded Client Recorded Date Recorded By Document 03/30/22 09:49 BMF [id number] 03/30/22 09:51 BMF Document 04/06/22 10:15 MW [id number] 04/06/22 10:17 MW 03/30/22 04/06/22 09:49 10:15 Wound Care Nurse 3 #12 Medial Superior LLE -Ulcer Cleansing Rinsed/ Rinsed/ Irrigated with Irrigated with Saline Saline -Foul Odor after Cleansing No No -Negative Pressure Wound Therapy N/A -Primary Dressing Applied Aquacel AG 4x4, Other -Other Dressing ATB OINT aquacel ag, kerramax -Primary Dressing Covered/Secured with Secured with Tape -Other Covering KERRAMAX -Aquacel AG 4x4 1 #11 Medial Inferior LLE -Ulcer Cleansing Rinsed/ Rinsed/ Irrigated with Irrigated with Saline Saline -Foul Odor after Cleansing No No -Negative Pressure Wound Therapy N/A -Primary Dressing Applied NonAdherent Contact Layer -Other Dressing AFFINITY aquacel ag, kerramax care -Primary Dressing Covered/Secured with Secured with Tape -Other Covering KERRAMAX #10 Left Medial Ankle -Ulcer Cleansing Rinsed/ Rinsed/ Irrigated with Irrigated with Saline Saline -Foul Odor after Cleansing No No -Negative Pressure Wound Therapy N/A -Primary Dressing Applied Aquacel AG 4x4, Other -Other Dressing ATB OINT aquacel ag, kerramax care -Primary Dressing Covered/Secured with Secured with Tape -Other Covering KERRAMAX/ABD -Aquacel AG 4x4 0 Left -Other PT APPLIED OWN COMPRESSION Treatment Response Procedure Procedure Tolerated Well Tolerated Well Pain Scale: 0-10 Numeric Is Patient Pain Free? Yes Yes Teaching: Wound Center Dressing Your Wound -Person Taught Patient -Teaching Method Discussion -Response to teaching Verbalize understanding WC - Visit Discharge Discharge Condition Stable Stable Ambulatory Status Ambulatory Ambulatory Transportation Private Auto Private Auto Accompanied by self Medication Reconcilliation completed & No provided to patient/care provider Clinical Summary of Care Provided Yes Additional Wound Wound debrided: Left lower extremity injury. Type of Debridement: Excisional debridement Anesthesia Used: 4% Lidocaine Solution Depth: Down to and including healthy tissue and in the subcutaneous layer Percentage of wound debrided: 100 Instrument Used: 5mm curette Tissue Removed: Slough and devitalized tissue Severity: Fat Layer Exposed Amount of bleeding with debridement: Mild Bleeding Controlled with: Pressure Patient tolerated procedure: Patient tolerated procedure well Additional Wound Wound debrided: Left lower extremity see. Type of Debridement: Excisional debridement Anesthesia Used: 4% Lidocaine Solution Depth: Down to and including healthy tissue and in the subcutaneous layer Percentage of wound debrided: 100 Instrument Used: 5mm curette Tissue Removed: Slough and devitalized tissue Severity: Fat Layer Exposed Amount of bleeding with debridement: Mild Bleeding Controlled with: Pressure Patient tolerated procedure: Patient tolerated procedure well Assessment/Plan Assessment/Plan (1) Ulcer of left lower extremity with fat layer exposed: CODE(S): L97.922 - Non-pressure chronic ulcer of unspecified part of left lower leg with fat layer exposed (2) PVD (peripheral vascular disease): CODE(S): I73.9 - Peripheral vascular disease, unspecified (3) Chronic venous insufficiency: CODE(S): I87.2 - Venous insufficiency (chronic) (peripheral) (4) Delayed wound healing: CODE(S): T14.8XXD - Other injury of unspecified body region, subsequent encounter PLAN: Debridement done as documented above, procedure was well-tolerated. No kidney sample available today for palpation. Wound. To the left inferior ulcer does look much improved since being on Affinity. For now continue Aquacel silver and care max care to all ulcers. Again it was reiterated that he should change it if dressing is soaked he was strongly advised to comply with this. Instructions given on how to use it. Continue use of compression stockings, leg elevation and exercise. Increased protein intake, protein supplements, zinc and vitamin C also recommended. Continue multivitamins. We have also discussed the possibility for Plastic surgery referral for graft closure. He has still not rescheduled with vascular surgery, he was strongly advised to. His questions were answered and was advised to call with any further questions or concerns. Follow-up in 1 week. This note was generated with [employer] dictation software. It may contain incorrect words, spelling, and punctuation that were not noted in checking the note before signing.
[2022-04-20 09:18] VITALS: BP 138/83; PULSE 86; RESP 18; TEMP 36.1; BMI 31.4
--- NOTE | 2022-04-20 12:17 | PN.PCM_ITS ---
History of Present Illness Date of Service: 04/20/22 Chief Complaint: ulcers to the left lower leg History of Wound: This is a 54-year-old male presents to wound healing center with a long-standing history of chronic venous insufficiency, chronic venous hypertension, lower extremity edema, lower extremity pain, and chronic left lower extremity ulcer. 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 He is currently wearing graduated compression stockings which are documented to be 20-30 mmHg compression and these are thigh high. He reports great compliance with use. He is also had previous arterial work-up with no intervention recommended by letter, his vascular surgeon. He denies taking nutritional supplementation. He saw dermatology and had a biopsy of the ulcer site. He also was previously treated by infectious disease for various contaminations and infections. He is not antibiotics at this time nor does he have any redness or odor coming from the wound. He denies fever, chill, nausea, vomiting, loss of appetite. Progress of Wound: Missed last appointment, was without power due to the stone. Has been doing mupirocin, Aquacel and KerraMaxCare. Some improvement noted this week.. Subjective Subjective No new concerns at this time. Objective Data Objective Data Vital Signs: Vital Signs Temp Pulse Resp BP Pulse Ox 97 F L 86 18 138/83 H 99 04/20/22 09:18 04/20/22 09:18 04/20/22 09:18 04/20/22 09:18 03/29/22 00:43 Oxygen Delivery Method Room Air Body Mass Index (BMI) 31.4 Charges/Coding Procedures Integumentary 111xxx-113xx: 19444 Lakeisha subq tissue 20 sq cm/< Add On Codes: 32197 Lakeisha subq tissue add-on (x1 additional square centimeter debrided, please refer to clinical note) Physical Exam Const alert, oriented x3 and no apparent distress General Appearance: cooperative and comfortable Orientation / Consciousness: awake HEENT normocephalic Head and Scalp: normal to inspection, normocephalic and atraumatic Face and Sinus: normal facial exam Eyes EOMs intact bilaterally Neck full ROM and supple General: normal visual inspection Resp normal respiratory effort Effort and Inspection: able to speak in complete sentences GI non-tender Extremity normal to inspection General Extremity: edema Skin Wounds: wounds noted Neuro oriented x3 and CN's II-XII intact bilaterally Psych mental status grossly normal Appearance: grossly normal Debridement Note Debridement Note Wound debrided: Left medial ankle Type of Debridement: Excisional debridement Anesthesia Used: 4% Lidocaine Solution Depth: Down to and including healthy tissue and in the subcutaneous layer Percentage of wound debrided: 100 Instrument Used: 5mm curette Tissue Removed: Slough and devitalized tissue Severity: Fat Layer Exposed Amount of bleeding with debridement: Mild Bleeding Controlled with: Pressure Patient tolerated procedure: Patient tolerated procedure well Post-Debridement Measurements and Additional Note: Post-Debridement Measurements/Treatment - Nurse 1 - General Ulcer Assessment Start: 03/30/22 09:04 Freq: Status: Active Protocol: SHANTA Activity Type Activity Date Activity User E-sign Co-sign Detail Recorded Client Recorded Date Recorded By Document 03/30/22 09:04 DL [id number] 03/30/22 09:16 DL Document 04/06/22 09:33 BM [id number] 04/06/22 09:48 BMF Document 04/20/22 09:18 MT [id number] 04/20/22 09:27 MT 03/30/22 04/06/22 04/20/22 09:04 09:33 09:18 - Today's Visit Information Type of service Follow-up Visit Follow-up Visit Follow-up Visit (Physician/CIRCUS TRAIN SUPERVISOR (Physician/CIRCUS TRAIN SUPERVISOR (Physician/CIRCUS TRAIN SUPERVISOR ) ) ) Arrival Mode Ambulatory Ambulatory Ambulatory Transfer Assistance None None Patient Identification Verified (Name & Yes Yes Yes ) Patient Requires Transmission-Based No No Precautions Height and Weight Body Mass Index (BMI) 31.4 31.4 31.4 BMI Classification Obese Obese Obese Vital Signs Temperature (97.8 F-99.1 F) 97.5 F L 96.7 F L 97 F L Temperature Source Temporal Temporal Temporal Pulse Rate (60-100) 87 90 86 Pulse Location Monitor Monitor Monitor Respiratory Rate (12-18) 18 16 18 Respiratory rate source Observation Observation Observation Oxygen Delivery Method Room Air Room Air Blood Pressure (90/60-120/80) 138/96 H 141/68 H 138/83 H Blood Pressure Mean (mm Hg) 110 92 101 Source Monitor Monitor Monitor Position Sitting Sitting Blood Pressure Location Left Arm Left Arm History Since Last Visit- (Skip if this is Patient's initial visit) Have you changed medications since your No No last visit? Any new allergies or adverse reactions No No Had a fall/change in ADL's that may No No increase risk of falls Signs or symptoms of abuse and/or No No neglect since last visit Have you been in the hospital since your No No Yes last visit? Has dressing in place as prescribed Yes Yes Yes Has compression in place as prescribed Yes Yes Yes Has offloadiing in place as prescribed N/A N/A Yes Experienced any changes in pain level or No No Yes management Left Footwear Regular Shoe Regular Shoe Right Footwear Regular Shoe Regular Shoe Pain Scale: 0-10 Numeric Is Patient Pain Free? No Yes Yes WC - Nurse 1 - General Ulcer Measurement Start: 03/30/22 09:04 Freq: Status: Active Protocol: Activity Type Activity Date Activity User E-sign Co-sign Detail Recorded Client Recorded Date Recorded By Document 03/30/22 09:04 [id number] 03/30/22 09:16 DL Document 04/06/22 09:33 [facility] [id number] 04/06/22 09:48 [facility] Document 04/20/22 09:18 MN [id number] 04/20/22 09:27 MN 03/30/22 04/06/22 04/20/22 09:04 09:33 09:18 Wound Center Nurse 1 #12 Medial Superior LLE -Combined with other wound No -Current Size (cm) - Length 1.9 1.6 1.8 -Current Size (cm) - Width 1.6 1.7 1.5 -Current Size (cm) - Depth 0.1 0.1 0.1 -Total Square Cm 3.04 2.72 2.70 -Date of Last Picture (Recall this 04/06/22 field) -Photo Taken No Yes -Epithelialization None Present -Tunneling No -Undermining/Tunneling No -Circular Undermining No -Exudate Amt Small Medium Medium -Exudate Type Serosanguineous Serosanguineous -Wound Margin Distinct, Distinct, Flat & Intact Outline Outline Attached Attached -Granulation Amt Medium (34-66%) Large (67-100%) Medium (34-66%) -Granulation Quality Red Red Pale,Pella -Slough/Fibrin No -Necrosis Amt Medium (34-66%) None Present (0 Medium (34-66%) %) -Necrotic Tissue Type Adherent Slough Adherent Slough -Structure Exposed N/A -Texture (Ara-wound Skin Appearance) Scarring Assessed, Assessed Scarring -Moisture (Ara-wound Skin Appearance) Dry/Scaly Assessed,Dry/ Assessed Scaly -Color (Ara-wound Skin Appearance) Hemosiderin Assessed, Assessed Staining Hemosiderin Staining -Temperature (Ara-wound Skin No Abnormality No Abnormality No Abnormality Appearance) (Pt Warm) (Pt Warm) (Pt Warm) -Tenderness on Palpation (Ara-wound No No Skin Appearance) -Ulcer Cleansing Soap and Water Soap and Water Rinsed/ Irrigated with Saline -Foul Odor after Cleansing No No No -Anesthetic Used 4% Lidocaine 4% Lidocaine 4% Lidocaine Solution Solution Solution #11 Medial Inferior LLE -Combined with other wound No -Current Size (cm) - Length 4.7 5.1 7.2 -Current Size (cm) - Width 3.8 4.3 4.0 -Current Size (cm) - Depth 0.2 0.2 0.1 -Total Square Cm 17.86 21.93 28.80 -Date of Last Picture (Recall this 04/06/22 field) -Photo Taken No Yes -Epithelialization None Present -Tunneling No -Undermining/Tunneling No -Circular Undermining No -Exudate Amt Medium Medium Medium -Exudate Type Serosanguineous Serosanguineous Serosanguineous -Wound Margin Distinct, Thickened Flat & Intact Outline Attached -Granulation Amt Medium (34-66%) Small (1-33%) Medium (34-66%) -Granulation Quality Red Red Pale,Pella -Slough/Fibrin Yes -Necrosis Amt Medium (34-66%) Large (67-100%) Medium (34-66%) -Necrotic Tissue Type Adherent Slough Adherent Slough Adherent Slough -Structure Exposed N/A -Texture (Ara-wound Skin Appearance) Scarring Assessed, Assessed Scarring -Moisture (Ara-wound Skin Appearance) Dry/Scaly Assessed,Dry/ Assessed Scaly -Color (Ara-wound Skin Appearance) Hemosiderin Assessed, Assessed, Staining Hemosiderin Hemosiderin Staining Staining -Temperature (Ara-wound Skin No Abnormality No Abnormality No Abnormality Appearance) (Pt Warm) (Pt Warm) (Pt Warm) -Tenderness on Palpation (Ara-wound No No No Skin Appearance) -Ulcer Cleansing Soap and Water Soap and Water Wound Cleanser -Foul Odor after Cleansing No No -Anesthetic Used 4% Lidocaine 4% Lidocaine 4% Lidocaine Solution Solution Solution #10 Left Medial Ankle -Combined with other wound No -Current Size (cm) - Length 6 6.6 4.8 -Current Size (cm) - Width 7.4 6.2 3.2 -Current Size (cm) - Depth 0.3 0.2 0.1 -Total Square Cm 44.4 40.92 15.36 -Date of Last Picture (Recall this 04/06/22 field) -Photo Taken No Yes -Epithelialization None Present -Tunneling No -Undermining/Tunneling No -Circular Undermining No -Exudate Amt Medium Medium Small -Exudate Type Yellow/Green Serosanguineous Serosanguineous -Wound Margin Distinct, Thickened Flat & Intact Outline Attached -Granulation Amt Medium (34-66%) Small (1-33%) Medium (34-66%) -Granulation Quality Red Red Pale,Pella -Slough/Fibrin Yes -Necrosis Amt Medium (34-66%) Large (67-100%) Medium (34-66%) -Necrotic Tissue Type Adherent Slough Adherent Slough -Structure Exposed N/A -Texture (Ara-wound Skin Appearance) Scarring Assessed, Assessed Scarring -Moisture (Ara-wound Skin Appearance) Dry/Scaly Assessed,Dry/ Assessed Scaly -Color (Ara-wound Skin Appearance) Hemosiderin Assessed, Assessed, Staining Hemosiderin Hemosiderin Staining Staining -Temperature (Ara-wound Skin No Abnormality No Abnormality Appearance) (Pt Warm) (Pt Warm) -Tenderness on Palpation (Ara-wound No No No Skin Appearance) -Ulcer Cleansing Soap and Water Soap and Water Wound Cleanser -Foul Odor after Cleansing No No -Anesthetic Used 4% Lidocaine 4% Lidocaine 4% Lidocaine Solution Solution Solution Lower Limb Edema Present Yes Left Calf (cm) 34 34.8 Left Ankle (cm) 28.4 23.2 WC - Nurse 2 - General Ulcer CM Notes Start: 03/30/22 09:04 Freq: Status: Active Protocol: Activity Type Activity Date Activity User E-sign Co-sign Detail Recorded Client Recorded Date Recorded By Document 03/30/22 09:23 MW [id number] 03/30/22 09:38 MW Document 04/06/22 10:04 MW [id number] 04/06/22 10:13 MW Document 04/20/22 09:29 MW [id number] 04/20/22 09:43 MW 03/30/22 04/06/22 04/20/22 09:23 10:04 09:29 Wound Center Nurse 2 #12 Medial Superior LLE -Time : 10:05 09:31 -Correct Patient Yes Yes Yes -Correct Side, Site, Position Yes Yes Yes -Correct Procedure Yes Yes Yes -Procedure Performed Yes Yes Yes -Type of Procedure Debridement Debridement Debridement -Clinical Debridement Subcutaneous Subcutaneous Subcutaneous -Tissue Removed Subcutaneous Subcutaneous Subcutaneous -Post Debridement (cm) - Length 1.7 1.8 1.8 -Post Debridement (cm) - Width 1.5 1.7 1.6 -Post Debridement (cm) - Depth 0.1 0.1 0.1 -Total Square (Post) (cm) 2.55 3.06 2.88 -Area of Debridement (cm) - Length 1.7 1.8 1.8 -Area of Debridement (cm) - Width 1.5 1.7 1.6 -Total Square (Area) (cm) 2.55 3.06 2.88 -Tunneling No No No -Undermining/Tunneling No No No -Circular Undermining No No No -Wound/Ulcer Outcome Not Healed Not Healed Not Healed -Ulcer Cleansing Rinsed/ Rinsed/ Rinsed/ Irrigated with Irrigated with Irrigated with Saline Saline Saline -Foul Odor after Cleansing No No No -Bioengineered Tissue No No No -Bleeding Controlled with Pressure Pressure Pressure -Treatment Response Procedure Procedure Procedure Tolerated Well Tolerated Well Tolerated Well -Offloading No No No -Debridement - Subq, 1st 20sq cm Yes Yes Yes -Debridement, SubQ, ea addt'l 20sq cm 2 2 1 or part thereof #11 Medial Inferior LLE -Time 09:24 10:06 09:31 -Correct Patient Yes Yes Yes -Correct Side, Site, Position Yes Yes Yes -Correct Procedure Yes Yes Yes -Procedure Performed Yes Yes Yes -Type of Procedure Debridement Debridement Debridement -Clinical Debridement Subcutaneous Subcutaneous Subcutaneous -Tissue Removed Subcutaneous Subcutaneous Subcutaneous -Post Debridement (cm) - Length 4.5 5.0 4.5 -Post Debridement (cm) - Width 4.0 4.0 3.6 -Post Debridement (cm) - Depth 0.3 0.3 0.1 -Total Square (Post) (cm) 18.00 20.00 16.20 -Area of Debridement (cm) - Length 4.5 5.0 4.5 -Area of Debridement (cm) - Width 4.0 4.0 3.6 -Total Square (Area) (cm) 18. 20.00 16.20 -Tunneling No No No -Undermining/Tunneling No No No -Circular Undermining No No No -Wound/Ulcer Outcome Not Healed Not Healed Not Healed -Ulcer Cleansing Rinsed/ Rinsed/ Rinsed/ Irrigated with Irrigated with Irrigated with Saline Saline Saline -Foul Odor after Cleansing No No No -Bioengineered Tissue No No No -Bleeding Controlled with Pressure Pressure Pressure -Treatment Response Procedure Procedure Procedure Tolerated Well Tolerated Well Tolerated Well -Offloading No No No -Debridement - Subq, 1st 20sq cm No No No #10 Left Medial Ankle -Time 09:24 10:06 09:32 -Correct Patient Yes Yes Yes -Correct Side, Site, Position Yes Yes Yes -Correct Procedure Yes Yes Yes -Procedure Performed Yes Yes Yes -Type of Procedure Debridement Debridement Debridement -Clinical Debridement Subcutaneous Subcutaneous Subcutaneous -Tissue Removed Subcutaneous Subcutaneous Subcutaneous -Post Debridement (cm) - Length 5.0 5.0 4.6 -Post Debridement (cm) - Width 4.0 3.8 3.5 -Post Debridement (cm) - Depth 0.3 0.3 0.2 -Total Square (Post) (cm) . 19.00 16.10 -Area of Debridement (cm) - Length 5.0 5.0 4.6 -Area of Debridement (cm) - Width 4.0 3.8 3.5 -Total Square (Area) (cm) 20 19.00 16.10 -Tunneling No No No -Undermining/Tunneling No No No -Circular Undermining No No No -Wound/Ulcer Outcome Not Healed Not Healed Not Healed -Ulcer Cleansing Rinsed/ Rinsed/ Rinsed/ Irrigated with Irrigated with Irrigated with Saline Saline Saline -Foul Odor after Cleansing No No No -Bioengineered Tissue No No No -Bleeding Controlled with Pressure Pressure -Treatment Response Procedure Procedure Tolerated Well Tolerated Well -Offloading No No No -Debridement - Subq, 1st 20sq cm No No No Pain Scale: 0-10 Numeric Is Patient Pain Free? Yes Yes Yes WC - Nurse 3 - General Ulcer D/C NN Start: 03/30/22 09:04 Freq: Status: Active Protocol: Activity Type Activity Date Activity User E-sign Co-sign Detail Recorded Client Recorded Date Recorded By Document 03/30/22 09:49 BMF [id number] 03/30/22 09:51 BMF Document 04/06/22 10:15 MW [id number] 04/06/22 10:17 MW Document 04/20/22 09:57 DL [id number] 04/20/22 10:00 DL 03/30/22 04/06/22 04/20/22 09:49 10:15 09:57 Wound Care Nurse 3 #12 Medial Superior LLE -Ulcer Cleansing Rinsed/ Rinsed/ Rinsed/ Irrigated with Irrigated with Irrigated with Saline Saline Saline -Foul Odor after Cleansing No No No -Negative Pressure Wound Therapy N/A -Primary Dressing Applied Aquacel AG 4x4, Aquacel Extra Other -Other Dressing ATB OINT aquacel ag, kerramax -Primary Dressing Covered/Secured with Secured with Tape -Other Covering KERRAMAX abd/kerramax -Aquacel Extra 1 -Aquacel AG 4x4 1 #11 Medial Inferior LLE -Ulcer Cleansing Rinsed/ Rinsed/ Irrigated with Irrigated with Saline Saline -Foul Odor after Cleansing No No No -Negative Pressure Wound Therapy N/A -Primary Dressing Applied NonAdherent Contact Layer -Other Dressing AFFINITY aquacel ag, affinity kerramax care -Primary Dressing Covered/Secured with Secured with Tape -Other Covering KERRAMAX kerramax #10 Left Medial Ankle -Ulcer Cleansing Rinsed/ Rinsed/ Rinsed/ Irrigated with Irrigated with Irrigated with Saline Saline Saline -Foul Odor after Cleansing No No No -Negative Pressure Wound Therapy N/A -Primary Dressing Applied Aquacel AG 4x4, Other -Other Dressing ATB OINT aquacel ag, aqaucel Ex kerramax care -Primary Dressing Covered/Secured with Secured with Tape -Other Covering KERRAMAX/ABD abd kerramax -Aquacel AG 4x4 0 Left -Stockings Yes -Other PT APPLIED OWN COMPRESSION Treatment Response Procedure Procedure Procedure Tolerated Well Tolerated Well Tolerated Well Pain Scale: 0-10 Numeric Is Patient Pain Free? Yes Yes Yes Teaching: Wound Center Dressing Your Wound -Person Taught Patient -Teaching Method Discussion -Response to teaching Verbalize understanding WC - Visit Discharge Discharge Condition Stable Stable Stable Ambulatory Status Ambulatory Ambulatory Ambulatory Transportation Private Auto Private Auto Private Auto Accompanied by self Medication Reconcilliation completed & No provided to patient/care provider Clinical Summary of Care Provided Yes Additional Wound Wound debrided: Left lower extremity inferior. Type of Debridement: Excisional debridement Anesthesia Used: 4% Lidocaine Solution Depth: Down to and including healthy tissue and in the subcutaneous layer Percentage of wound debrided: 100 Instrument Used: 5mm curette Tissue Removed: Slough and devitalized tissue Severity: Fat Layer Exposed Amount of bleeding with debridement: Mild Bleeding Controlled with: Pressure Patient tolerated procedure: Patient tolerated procedure well Additional Wound Wound debrided: Left lower extremity superior Type of Debridement: Excisional debridement Anesthesia Used: 4% Lidocaine Solution Depth: Down to and including healthy tissue and in the subcutaneous layer Percentage of wound debrided: 100 Instrument Used: 5mm curette Severity: Fat Layer Exposed Amount of bleeding with debridement: Mild Bleeding Controlled with: Pressure Patient tolerated procedure: Patient tolerated procedure well Assessment/Plan Assessment/Plan (1) Ulcer of left lower extremity with fat layer exposed: CODE(S): L97.922 - Non-pressure chronic ulcer of unspecified part of left lower leg with fat layer exposed (2) PVD (peripheral vascular disease): CODE(S): I73.9 - Peripheral vascular disease, unspecified (3) Chronic venous insufficiency: CODE(S): I87.2 - Venous insufficiency (chronic) (peripheral) (4) Delayed wound healing: CODE(S): T14.8XXD - Other injury of unspecified body region, subsequent encounter PLAN: Plan Debridement done as documented above, procedure was well-tolerated. Left medial ankle and inferior ulcers are improving. Left superior with no significant change. Fifth application of Affinity sample applied to inferior lower extremity ulcer. Covered with Adaptic touch and secured with tape. Leave in place for 10 days and once removed, may apply Aquacel, care max as with other ulcers. Continue use of compression stockings, leg elevation and exercise. Increased protein intake, protein supplements, zinc and vitamin C also recommended. Continue multivitamins. We have also discussed the possibility for Plastic surgery referral for graft closure. He has still not rescheduled with vascular surgery, he was strongly advised to. His questions were answered and was advised to call with any further questions or concerns. Follow-up in 2 weeks This note was generated with [employer] dictation software. It may contain incorrect words, spelling, and punctuation that were not noted in checking the note before signing.
== END 2022-04-27 23:59 | disposition home or self-care (01) ==
LOC: WC 09:00
PROVIDERS: Visit Provider Internal Medicine
DX: I73.9 Peripheral vascular disease, unspecified (principal); L97.322 Non-pressure chronic ulcer of left ankle with fat layer exposed; I87.2 Venous insufficiency (chronic) (peripheral); R60.0 Localized edema
CPT/HCPCS: 11042; 11045

== ENCOUNTER 2022-05-18 09:00 | Outpatient (RCR) | payer BC, SELFPAY ==
[2022-04-28 00:27] VITALS: BP 138/83; PULSE 86; RESP 18; TEMP 36.1; O2SAT 99; BMI 31.4
[2022-05-04 09:14] VITALS: BP 172/97; PULSE 91; RESP 16; TEMP 36.2; BMI 31.4
--- NOTE | 2022-05-04 10:01 | PN.PCM_ITS ---
History of Present Illness Date of Service: 05/04/22 Chief Complaint: ulcers to the left lower leg History of Wound: This is a 54-year-old male presents to wound healing center with a long-standing history of chronic venous insufficiency, chronic venous hypertension, lower extremity edema, lower extremity pain, and chronic left lower extremity ulcer. The patient has previously undergone endovenous laser ablation of the left and right great saphenous vein, the small saphenous vein, the left accessory saphenous vein, and an incompetent left calf train crew member vein located 15 cm proximal to the left medial malleolus. He is currently wearing graduated compression stockings which are documented to be 20-30 mmHg compression and these are thigh high. He reports great compliance with use. He is also had previous arterial work-up with no intervention recommended by letter, his vascular surgeon. He denies taking nutritional supplementation. He saw dermatology and had a biopsy of the ulcer site. He also was previously treated by infectious disease for various contaminations and infections. He is not antibiotics at this time nor does he have any redness or odor coming from the wound. He denies fever, chill, nausea, vomiting, loss of appetite. Progress of Wound: Some improvement to the left inferior ulcer. Other ulcers are stable. No new concerns reported. Objective Data Objective Data Vital Signs: Vital Signs Temp Pulse Resp BP Pulse Ox O2 Del Method 97.2 F L 91 16 172/97 H 99 Room Air 05/04/22 09:14 05/04/22 09:14 05/04/22 09:14 05/04/22 09:14 04/28/22 00:27 05/04/22 09:14 Oxygen Delivery Method Room Air Body Mass Index (BMI) 31.4 Charges/Coding Procedures Integumentary 111xxx-113xx: 61832 Lakeisha subq tissue 20 sq cm/< Add On Codes: 66894 Lakeisha subq tissue add-on Physical Exam Const alert, oriented x3 and no apparent distress General Appearance: cooperative and comfortable Orientation / Consciousness: awake HEENT normocephalic Head and Scalp: normal to inspection, normocephalic and atraumatic Face and Sinus: normal facial exam Eyes EOMs intact bilaterally Neck full ROM and supple General: normal visual inspection Resp normal respiratory effort Effort and Inspection: able to speak in complete sentences GI non-tender Extremity normal to inspection General Extremity: edema Skin Wounds: wounds noted Neuro oriented x3 and CN's II-XII intact bilaterally Psych mental status grossly normal Appearance: grossly normal Debridement Note Debridement Note Wound debrided: Left lower extremity inferior ulcer Type of Debridement: Excisional debridement Anesthesia Used: 4% Lidocaine Solution Depth: Down to and including healthy tissue and in the subcutaneous layer Percentage of wound debrided: 100 Instrument Used: 5mm curette Tissue Removed: Slough and devitalized tissue Severity: Fat Layer Exposed Amount of bleeding with debridement: Mild Bleeding Controlled with: Pressure Patient tolerated procedure: Patient tolerated procedure well Post-Debridement Measurements and Additional Note: Post-Debridement Measurements/Treatment - Nurse 1 - General Ulcer Assessment Start: 05/04/22 09:14 Freq: Status: Active Protocol: SHANTA Activity Type Activity Date Activity User E-sign Co-sign Detail Recorded Client Recorded Date Recorded By Document 05/04/22 09:14 [facility] [id number] 05/04/22 09:25 [facility] 05/04/22 09:14 WC - Today's Visit Information Type of service Follow-up Visit (Physician/[employer] REPAIRER ) Arrival Mode Ambulatory Transfer Assistance None Patient Identification Verified (Name & Yes ) Patient Requires Transmission-Based No Precautions Height and Weight Body Mass Index (BMI) 31.4 BMI Classification Obese Vital Signs Temperature (97.8 F-99.1 F) 97.2 F L Temperature Source Temporal Pulse Rate (60-100) 91 Pulse Location Monitor Respiratory Rate (12-18) 16 Respiratory rate source Observation Oxygen Delivery Method Room Air Blood Pressure (90/60-120/80) 172/97 H Blood Pressure Mean (mm Hg) 122 Source Monitor Position Sitting Blood Pressure Location Left Arm History Since Last Visit- (Skip if this is Patient's initial visit) Have you changed medications since your No last visit? Any new allergies or adverse reactions No Had a fall/change in ADL's that may No increase risk of falls Signs or symptoms of abuse and/or No neglect since last visit Have you been in the hospital since your No last visit? Has dressing in place as prescribed Yes Has compression in place as prescribed Yes Has offloadiing in place as prescribed N/A Experienced any changes in pain level or No management Left Footwear Regular Shoe Right Footwear Regular Shoe Pain Scale: 0-10 Numeric Is Patient Pain Free? Yes - Nurse 1 - General Ulcer Measurement Start: 05/04/22 09:14 Freq: Status: Active Protocol: Activity Type Activity Date Activity User E-sign Co-sign Detail Recorded Client Recorded Date Recorded By Document 05/04/22 09:14 [facility] [id number] 05/04/22 09:25 [facility] 05/04/22 09:14 Wound Center Nurse 1 #12 Medial Superior LLE -Combined with other wound No -Current Size (cm) - Length 1.2 -Current Size (cm) - Width 1.1 -Current Size (cm) - Depth 0.1 -Total Square Cm 1.32 -Epithelialization Small 1-33% -Tunneling No -Undermining/Tunneling No -Circular Undermining No -Exudate Amt Medium -Exudate Type Serosanguineous -Wound Margin Distinct, Outline Attached -Granulation Amt Large (67-100%) -Granulation Quality Red -Slough/Fibrin Yes -Necrosis Amt Small (1-33%) -Necrotic Tissue Type Adherent Slough -Texture (Ara-wound Skin Appearance) Assessed, Scarring -Moisture (Ara-wound Skin Appearance) Assessed,Dry/ Scaly -Color (Ara-wound Skin Appearance) Assessed, Hemosiderin Staining -Temperature (Ara-wound Skin No Abnormality Appearance) (Pt Warm) -Tenderness on Palpation (Ara-wound No Skin Appearance) -Ulcer Cleansing Rinsed/ Irrigated with Saline -Foul Odor after Cleansing No -Anesthetic Used 4% Lidocaine Solution #11 Medial Inferior LLE -Combined with other wound No -Current Size (cm) - Length 4.2 -Current Size (cm) - Width 2.8 -Current Size (cm) - Depth 0.1 -Total Square Cm 11.76 -Photo Taken No -Epithelialization Small 1-33% -Tunneling No -Undermining/Tunneling No -Circular Undermining No -Exudate Amt Medium -Exudate Type Serosanguineous -Wound Margin Distinct, Outline Attached -Granulation Amt Large (67-100%) -Granulation Quality Red -Slough/Fibrin Yes -Necrosis Amt Small (1-33%) -Necrotic Tissue Type Adherent Slough -Texture (Ara-wound Skin Appearance) Assessed, Scarring -Moisture (Ara-wound Skin Appearance) Assessed,Dry/ Scaly -Color (Ara-wound Skin Appearance) Assessed, Hemosiderin Staining -Temperature (Ara-wound Skin No Abnormality Appearance) (Pt Warm) -Tenderness on Palpation (Ara-wound No Skin Appearance) -Ulcer Cleansing Soap and Water -Foul Odor after Cleansing No -Anesthetic Used 4% Lidocaine Solution #10 Left Medial Ankle -Combined with other wound No -Current Size (cm) - Length 5.7 -Current Size (cm) - Width 3.3 -Current Size (cm) - Depth 0.2 -Total Square Cm 18.81 -Epithelialization None Present -Tunneling No -Undermining/Tunneling No -Circular Undermining No -Exudate Amt Large -Exudate Type Serosanguineous -Wound Margin Thickened -Granulation Amt Small (1-33%) -Granulation Quality Red -Slough/Fibrin Yes -Necrosis Amt Large (67-100%) -Necrotic Tissue Type Adherent Slough -Texture (Ara-wound Skin Appearance) Assessed, Scarring -Moisture (Ara-wound Skin Appearance) Assessed,Dry/ Scaly -Color (Ara-wound Skin Appearance) Assessed, Hemosiderin Staining -Temperature (Ara-wound Skin No Abnormality Appearance) (Pt Warm) -Tenderness on Palpation (Ara-wound No Skin Appearance) -Ulcer Cleansing Soap and Water -Foul Odor after Cleansing No -Anesthetic Used 4% Lidocaine Solution Left Calf (cm) 34.8 Left Ankle (cm) 22.8 WC - Nurse 2 - General Ulcer CM Notes Start: 05/04/22 09:14 Freq: Status: Active Protocol: Activity Type Activity Date Activity User E-sign Co-sign Detail Recorded Client Recorded Date Recorded By Document 05/04/22 09:44 MW [id number] 05/04/22 09:56 MW 05/04/22 09:44 Wound Center Nurse 2 #12 Medial Superior LLE -Time 09:48 -Correct Patient Yes -Correct Side, Site, Position Yes -Correct Procedure Yes -Procedure Performed Yes -Type of Procedure Debridement -Clinical Debridement Subcutaneous -Tissue Removed Subcutaneous -Post Debridement (cm) - Length 1.9 -Post Debridement (cm) - Width 1.3 -Post Debridement (cm) - Depth 0.1 -Total Square (Post) (cm) 2.47 -Area of Debridement (cm) - Length 1.9 -Area of Debridement (cm) - Width 1.3 -Total Square (Area) (cm) 2.47 -Tunneling No -Undermining/Tunneling No -Circular Undermining No -Wound/Ulcer Outcome Not Healed -Ulcer Cleansing Rinsed/ Irrigated with Saline -Foul Odor after Cleansing No -Bioengineered Tissue No -Bleeding Controlled with Pressure -Treatment Response Procedure Tolerated Well -Offloading No -Debridement - Subq, 1st 20sq cm Yes #11 Medial Inferior LLE -Time 09:48 -Correct Patient Yes -Correct Side, Site, Position Yes -Correct Procedure Yes -Procedure Performed Yes -Type of Procedure Debridement -Clinical Debridement Subcutaneous -Tissue Removed Subcutaneous -Post Debridement (cm) - Length 4.5 -Post Debridement (cm) - Width 3.3 -Post Debridement (cm) - Depth 0.1 -Total Square (Post) (cm) 14.85 -Area of Debridement (cm) - Length 4.5 -Area of Debridement (cm) - Width 3.3 -Total Square (Area) (cm) 14.85 -Tunneling No -Undermining/Tunneling No -Circular Undermining No -Wound/Ulcer Outcome Not Healed -Ulcer Cleansing Rinsed/ Irrigated with Saline -Foul Odor after Cleansing No -Bioengineered Tissue No -Bleeding Controlled with Pressure -Treatment Response Procedure Tolerated Well -Offloading No -Debridement - Subq, 1st 20sq cm No #10 Left Medial Ankle -Time 09:48 -Correct Patient Yes -Correct Side, Site, Position Yes -Correct Procedure Yes -Procedure Performed Yes -Type of Procedure Debridement -Clinical Debridement Subcutaneous -Tissue Removed Subcutaneous -Post Debridement (cm) - Length 5.0 -Post Debridement (cm) - Width 3.7 -Post Debridement (cm) - Depth 0.2 -Total Square (Post) (cm) 18.50 -Area of Debridement (cm) - Length 5.0 -Area of Debridement (cm) - Width 3.7 -Total Square (Area) (cm) 18.50 -Tunneling No -Undermining/Tunneling No -Circular Undermining No -Wound/Ulcer Outcome Not Healed -Ulcer Cleansing Rinsed/ Irrigated with Saline -Foul Odor after Cleansing No -Bioengineered Tissue No -Bleeding Controlled with Pressure -Treatment Response Procedure Tolerated Well -Offloading No -Debridement - Subq, 1st 20sq cm No Pain Scale: 0-10 Numeric Is Patient Pain Free? Yes Additional Wound Wound debrided: Left lower extremity superior ulcer Type of Debridement: Excisional debridement Anesthesia Used: 4% Lidocaine Solution Depth: Down to and including healthy tissue and in the subcutaneous layer Percentage of wound debrided: 100 Instrument Used: 5mm curette Tissue Removed: Slough and devitalized tissue Severity: Fat Layer Exposed Amount of bleeding with debridement: Mild Bleeding Controlled with: Pressure Patient tolerated procedure: Patient tolerated procedure well Additional Wound Wound debrided: Left medial ankle Laterality: Left Type of Debridement: Excisional debridement Anesthesia Used: 4% Lidocaine Solution Depth: Down to and including healthy tissue and in the subcutaneous layer Percentage of wound debrided: 100 Instrument Used: 5mm curette Tissue Removed: Slough and devitalized tissue Severity: Fat Layer Exposed Amount of bleeding with debridement: Mild Bleeding Controlled with: Pressure Patient tolerated procedure: Patient tolerated procedure well Assessment/Plan Assessment/Plan (1) Ulcer of left lower extremity with fat layer exposed: CODE(S): L97.922 - Non-pressure chronic ulcer of unspecified part of left lower leg with fat layer exposed (2) PVD (peripheral vascular disease): CODE(S): I73.9 - Peripheral vascular disease, unspecified (3) Chronic venous insufficiency: CODE(S): I87.2 - Venous insufficiency (chronic) (peripheral) (4) Delayed wound healing: CODE(S): T14.8XXD - Other injury of unspecified body region, subsequent encounter PLAN: Plan Debridement done as documented above, procedure was well-tolerated. Some improvement noted. 6th application of Affinity sample applied to inferior lower extremity ulcer. Covered with Adaptic touch and secured with tape. Leave in place for 1 week. Continue Aquacel and care max to medial ankle and superior ulcers. Continue mupirocin ointment as well. Continue use of compression stockings, leg elevation and exercise. Increased protein intake, protein supplements, zinc and vitamin C also recommended. Continue multivitamins. We have also discussed the possibility for Plastic surgery referral for graft closure. Now has an appointment scheduled with vascular surgery. His questions were answered and was advised to call with any further questions or concerns. Follow-up in 1 week. This note was generated with [employer] software. It may contain incorrect words, spelling, and punctuation that were not noted in checking the note before signing.
[2022-05-11 08:41] VITALS: BP 150/86; PULSE 89; RESP 16; TEMP 36.3; BMI 31.4
--- NOTE | 2022-05-11 09:31 | PCM.WC.PN ---
History of Present Illness Date of Service: 05/11/22 Chief Complaint: ulcers to the left lower leg History of Wound: This is a 54-year-old male presents to wound healing center with a long-standing history of chronic venous insufficiency, chronic venous hypertension, lower extremity edema, lower extremity pain, and chronic left lower extremity ulcer. 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 He is currently wearing graduated compression stockings which are documented to be 20-30 mmHg compression and these are thigh high. He reports great compliance with use. He is also had previous arterial work-up with no intervention recommended by letter, his vascular surgeon. He denies taking nutritional supplementation. He saw dermatology and had a biopsy of the ulcer site. He also was previously treated by infectious disease for various contaminations and infections. He is not antibiotics at this time nor does he have any redness or odor coming from the wound. He denies fever, chill, nausea, vomiting, loss of appetite. Progress of Wound: Stable ulcers. No new concerns at this time. Objective Data Objective Data Vital Signs: Vital Signs Temp Pulse Resp BP Pulse Ox O2 Del Method 97.3 F L 89 16 150/86 H 99 Room Air 05/11/22 08:41 05/11/22 08:41 05/11/22 08:41 05/11/22 08:41 04/28/22 00:27 05/11/22 08:41 Oxygen Delivery Method Room Air Body Mass Index (BMI) 31.4 Charges/Coding Procedures Integumentary 111xxx-113xx: 66641 Lakeisha subq tissue 20 sq cm/< Add On Codes: 99857 Lakeisha subq tissue add-on Physical Exam Const alert, oriented x3 and no apparent distress General Appearance: cooperative and comfortable Orientation / Consciousness: awake HEENT normocephalic Head and Scalp: normal to inspection, normocephalic and atraumatic Face and Sinus: normal facial exam Eyes EOMs intact bilaterally Neck full ROM and supple General: normal visual inspection Resp normal respiratory effort Effort and Inspection: able to speak in complete sentences GI non-tender Extremity normal to inspection General Extremity: edema Skin Wounds: wounds noted Neuro oriented x3 and CN's II-XII intact bilaterally Psych mental status grossly normal Appearance: grossly normal Debridement Note Debridement Note Wound debrided: Left medial Ankle Type of Debridement: Excisional debridement Anesthesia Used: 4% Lidocaine Solution Depth: Down to and including healthy tissue and in the subcutaneous layer Percentage of wound debrided: 100 Instrument Used: 5mm curette Tissue Removed: Slough and devitalized tissue Severity: Fat Layer Exposed Amount of bleeding with debridement: Mild Bleeding Controlled with: Pressure Patient tolerated procedure: Patient tolerated procedure well Post-Debridement Measurements and Additional Note: Post-Debridement Measurements/Treatment - Nurse 1 - General Ulcer Assessment Start: 05/04/22 09:14 Freq: Status: Active Protocol: [email or web address].[email or web address] Activity Type Activity Date Activity User E-sign Co-sign Detail Recorded Client Recorded Date Recorded By Document 05/04/22 09:14 [facility] [id number] 05/04/22 09:25 [facility] Document 05/11/22 08:41 [facility] [id number] 05/11/22 08:55 [facility] 05/04/22 05/11/22 09:14 08:41 - Today's Visit Information Type of service Follow-up Visit Follow-up Visit (Physician/INSTRUCTIONAL COACH (Physician/INSTRUCTIONAL COACH ) ) Arrival Mode Ambulatory Ambulatory Transfer Assistance None None Patient Identification Verified (Name & Yes Yes ) Patient Requires Transmission-Based No No Precautions Height and Weight Body Mass Index (BMI) 31.4 31.4 BMI Classification Obese Obese Vital Signs Temperature (97.8 F-99.1 F) 97.2 F L 97.3 F L Temperature Source Temporal Temporal Pulse Rate (60-100) 91 89 Pulse Location Monitor Monitor Respiratory Rate (12-18) 16 16 Respiratory rate source Observation Observation Oxygen Delivery Method Room Air Room Air Blood Pressure (90/60-120/80) 172/97 H 150/86 H Blood Pressure Mean (mm Hg) 122 107 Source Monitor Monitor Position Sitting Sitting Blood Pressure Location Left Arm Left Arm History Since Last Visit- (Skip if this is Patient's initial visit) Have you changed medications since your No No last visit? Any new allergies or adverse reactions No No Had a fall/change in ADL's that may No No increase risk of falls Signs or symptoms of abuse and/or No No neglect since last visit Have you been in the hospital since your No No last visit? Has dressing in place as prescribed Yes Yes Has compression in place as prescribed Yes Yes Has offloadiing in place as prescribed N/A N/A Experienced any changes in pain level or No No management Left Footwear Regular Shoe Regular Shoe Right Footwear Regular Shoe Regular Shoe Pain Scale: 0-10 Numeric Is Patient Pain Free? Yes Yes WC - Nurse 1 - General Ulcer Measurement Start: 05/04/22 09:14 Freq: Status: Active Protocol: Activity Type Activity Date Activity User E-sign Co-sign Detail Recorded Client Recorded Date Recorded By Document 05/04/22 09:14 [facility] [id number] 05/04/22 09:25 BM Document 05/11/22 08:41 [facility] [id number] 05/11/22 08:55 BM 05/04/22 05/11/22 09:14 08:41 Wound Center Nurse 1 #12 Medial Superior LLE -Combined with other wound No -Current Size (cm) - Length 1.2 1.6 -Current Size (cm) - Width 1.1 1.2 -Current Size (cm) - Depth 0.1 0.2 -Total Square Cm 1.32 1.92 -Photo Taken Yes -Epithelialization Small 1-33% -Tunneling No -Undermining/Tunneling No -Circular Undermining No -Exudate Amt Medium Medium -Exudate Type Serosanguineous Serosanguineous -Wound Margin Distinct, Distinct, Outline Outline Attached Attached -Granulation Amt Large (67-100%) Large (67-100%) -Granulation Quality Red Red -Slough/Fibrin Yes -Necrosis Amt Small (1-33%) None Present (0 %) -Necrotic Tissue Type Adherent Slough -Structure Exposed N/A -Texture (Ara-wound Skin Appearance) Assessed, Scarring Scarring -Moisture (Ara-wound Skin Appearance) Assessed,Dry/ No Abnormality, Scaly Dry/Scaly -Color (Ara-wound Skin Appearance) Assessed, Hemosiderin Hemosiderin Staining Staining -Temperature (Ara-wound Skin No Abnormality No Abnormality Appearance) (Pt Warm) (Pt Warm) -Tenderness on Palpation (Ara-wound No No Skin Appearance) -Ulcer Cleansing Rinsed/ Soap and Water Irrigated with Saline -Foul Odor after Cleansing No No -Anesthetic Used 4% Lidocaine 4% Lidocaine Solution Solution #11 Medial Inferior LLE -Combined with other wound No -Current Size (cm) - Length 4.2 -Current Size (cm) - Width 2.8 -Current Size (cm) - Depth 0.1 -Total Square Cm 11.76 -Photo Taken No Yes -Epithelialization Small 1-33% -Tunneling No -Undermining/Tunneling No -Circular Undermining No -Exudate Amt Medium Medium -Exudate Type Serosanguineous Serosanguineous -Wound Margin Distinct, Distinct, Outline Outline Attached Attached -Granulation Amt Large (67-100%) Large (67-100%) -Granulation Quality Red Red -Slough/Fibrin Yes -Necrosis Amt Small (1-33%) None Present (0 %) -Necrotic Tissue Type Adherent Slough -Structure Exposed N/A -Texture (Ara-wound Skin Appearance) Assessed, Scarring Scarring -Moisture (Ara-wound Skin Appearance) Assessed,Dry/ No Abnormality Scaly -Color (Ara-wound Skin Appearance) Assessed, Hemosiderin Hemosiderin Staining Staining -Temperature (Ara-wound Skin No Abnormality No Abnormality Appearance) (Pt Warm) (Pt Warm) -Tenderness on Palpation (Ara-wound No No Skin Appearance) -Ulcer Cleansing Soap and Water Soap and Water -Foul Odor after Cleansing No No -Anesthetic Used 4% Lidocaine 4% Lidocaine Solution Solution #10 Left Medial Ankle -Combined with other wound No -Current Size (cm) - Length 5.7 -Current Size (cm) - Width 3.3 -Current Size (cm) - Depth 0.2 -Total Square Cm 18.81 -Photo Taken Yes -Epithelialization None Present -Tunneling No -Undermining/Tunneling No -Circular Undermining No -Exudate Amt Large Medium -Exudate Type Serosanguineous Serosanguineous -Wound Margin Thickened Distinct, Outline Attached -Granulation Amt Small (1-33%) Medium (34-66%) -Granulation Quality Red Red -Slough/Fibrin Yes -Necrosis Amt Large (67-100%) Medium (34-66%) -Necrotic Tissue Type Adherent Slough Adherent Slough -Structure Exposed N/A -Texture (Ara-wound Skin Appearance) Assessed, Rash Scarring -Moisture (Ara-wound Skin Appearance) Assessed,Dry/ Dry/Scaly Scaly -Color (Ara-wound Skin Appearance) Assessed, Hemosiderin Hemosiderin Staining Staining -Temperature (Ara-wound Skin No Abnormality No Abnormality Appearance) (Pt Warm) (Pt Warm) -Tenderness on Palpation (Ara-wound No Skin Appearance) -Ulcer Cleansing Soap and Water Soap and Water -Foul Odor after Cleansing No No -Anesthetic Used 4% Lidocaine 4% Lidocaine Solution Solution Left Calf (cm) 34.8 Left Ankle (cm) 22.8 WC - Nurse 2 - General Ulcer CM Notes Start: 05/04/22 09:14 Freq: Status: Active Protocol: Activity Type Activity Date Activity User E-sign Co-sign Detail Recorded Client Recorded Date Recorded By Document 05/04/22 09:44 MW [id number] 05/04/22 09:56 MW Edit Result 05/04/22 09:44 MW (1) [id number] 05/05/22 07:13 PL Document 05/11/22 09:02 MW [id number] 05/11/22 09:14 MW (1) #12 Medial Superior LLE - Debridement, SubQ, ea addt'l 20sq cm => 1 or part thereof 05/04/22 05/11/22 09:44 09:02 Wound Center Nurse 2 #12 Medial Superior LLE -Time 09:48 09:03 -Correct Patient Yes Yes -Correct Side, Site, Position Yes Yes -Correct Procedure Yes Yes -Procedure Performed Yes Yes -Type of Procedure Debridement Debridement -Clinical Debridement Subcutaneous Subcutaneous -Tissue Removed Subcutaneous Subcutaneous -Post Debridement (cm) - Length 1.9 1.6 -Post Debridement (cm) - Width 1.3 1.3 -Post Debridement (cm) - Depth 0.1 0.1 -Total Square (Post) (cm) 2.47 2.08 -Area of Debridement (cm) - Length 1.9 1.6 -Area of Debridement (cm) - Width 1.3 1.3 -Total Square (Area) (cm) 2.47 2.08 -Tunneling No No -Undermining/Tunneling No No -Circular Undermining No No -Wound/Ulcer Outcome Not Healed Not Healed -Ulcer Cleansing Rinsed/ Rinsed/ Irrigated with Irrigated with Saline Saline -Foul Odor after Cleansing No No -Bioengineered Tissue No No -Bleeding Controlled with Pressure Pressure -Treatment Response Procedure Procedure Tolerated Well Tolerated Well -Offloading No No -Debridement - Subq, 1st 20sq cm Yes Yes -Debridement, SubQ, ea addt'l 20sq cm 1 1 or part thereof #11 Medial Inferior LLE -Time 09:48 09:03 -Correct Patient Yes Yes -Correct Side, Site, Position Yes Yes -Correct Procedure Yes Yes -Procedure Performed Yes Yes -Type of Procedure Debridement Debridement -Clinical Debridement Subcutaneous Subcutaneous -Tissue Removed Subcutaneous Subcutaneous -Post Debridement (cm) - Length 4.5 4.8 -Post Debridement (cm) - Width 3.3 3.4 -Post Debridement (cm) - Depth 0.1 0.1 -Total Square (Post) (cm) 14.85 16.32 -Area of Debridement (cm) - Length 4.5 4.8 -Area of Debridement (cm) - Width 3.3 3.4 -Total Square (Area) (cm) 14.85 16.32 -Tunneling No No -Undermining/Tunneling No No -Circular Undermining No No -Wound/Ulcer Outcome Not Healed Not Healed -Ulcer Cleansing Rinsed/ Rinsed/ Irrigated with Irrigated with Saline Saline -Foul Odor after Cleansing No No -Bioengineered Tissue No No -Bleeding Controlled with Pressure Pressure -Treatment Response Procedure Procedure Tolerated Well Tolerated Well -Offloading No No -Debridement - Subq, 1st 20sq cm No No #10 Left Medial Ankle -Time 09:48 09:03 -Correct Patient Yes Yes -Correct Side, Site, Position Yes Yes -Correct Procedure Yes Yes -Procedure Performed Yes Yes -Type of Procedure Debridement Debridement -Clinical Debridement Subcutaneous Subcutaneous -Tissue Removed Subcutaneous Subcutaneous -Post Debridement (cm) - Length 5.0 5.0 -Post Debridement (cm) - Width 3.7 3.5 -Post Debridement (cm) - Depth 0.2 0.2 -Total Square (Post) (cm) 18.50 17.50 -Area of Debridement (cm) - Length 5.0 5.0 -Area of Debridement (cm) - Width 3.7 3.5 -Total Square (Area) (cm) 18.50 17.50 -Tunneling No No -Undermining/Tunneling No No -Circular Undermining No No -Wound/Ulcer Outcome Not Healed Not Healed -Ulcer Cleansing Rinsed/ Rinsed/ Irrigated with Irrigated with Saline Saline -Foul Odor after Cleansing No No -Bioengineered Tissue No No -Bleeding Controlled with Pressure Pressure -Treatment Response Procedure Procedure Tolerated Well Tolerated Well -Offloading No No -Debridement - Subq, 1st 20sq cm No No Pain Scale: 0-10 Numeric Is Patient Pain Free? Yes Yes - Nurse 3 - General Ulcer D/C NN Start: 05/04/22 09:14 Freq: Status: Active Protocol: Activity Type Activity Date Activity User E-sign Co-sign Detail Recorded Client Recorded Date Recorded By Document 05/04/22 10:06 [place] [id number] 05/04/22 10:07 [place] Document 05/11/22 09:19 [facility] [id number] 05/11/22 09:21 [facility] 05/04/22 05/11/22 10:06 09:19 Wound Care Nurse 3 #12 Medial Superior LLE -Ulcer Cleansing Rinsed/ Irrigated with Saline -Foul Odor after Cleansing No -Primary Dressing Applied Aquacel AG 4x4 Aquacel AG 4x4 -Other Dressing abd -Primary Dressing Covered/Secured with Dry Gauze, Secured with Secured with Tape Tape -Other Covering pt will apply bactroban at home -Aquacel AG 4x4 1 1 #11 Medial Inferior LLE -Other Dressing affinity product -Other Covering kerramax #10 Left Medial Ankle -Ulcer Cleansing Rinsed/ Irrigated with Saline -Foul Odor after Cleansing No -Primary Dressing Applied Aquacel AG 4x4 -Other Dressing pt will apply bactroban at home -Primary Dressing Covered/Secured with Secured with Tape -Other Covering kerramax -Aquacel AG 4x4 0 Left -Other pt applied own compression stocking Treatment Response Procedure Tolerated Well Pain Scale: 0-10 Numeric Is Patient Pain Free? Yes Yes - Visit Discharge Discharge Condition Stable Stable Ambulatory Status Ambulatory Ambulatory Transportation Private Auto Private Auto Medication Reconcilliation completed & No provided to patient/care provider Clinical Summary of Care Provided Yes Notes: pt brings in own compression stocking Additional Wound Wound debrided: Left Lower Extremity ( Inferior ) Type of Debridement: Excisional debridement Anesthesia Used: 4% Lidocaine Solution Depth: Down to and including healthy tissue and in the subcutaneous layer Percentage of wound debrided: 100 Instrument Used: 5mm curette Tissue Removed: Slough and devitalized tissue Severity: Fat Layer Exposed Amount of bleeding with debridement: Mild Bleeding Controlled with: Pressure Patient tolerated procedure: Patient tolerated procedure well Additional Wound Wound debrided: Left Lower Extremity ( superior ) Type of Debridement: Excisional debridement Anesthesia Used: 4% Lidocaine Solution Depth: Down to and including healthy tissue and in the subcutaneous layer Percentage of wound debrided: 100 Instrument Used: 5mm curette Tissue Removed: Slough and devitalized tissue Severity: Fat Layer Exposed Amount of bleeding with debridement: Mild Bleeding Controlled with: Pressure Patient tolerated procedure: Patient tolerated procedure well Assessment/Plan Assessment/Plan (1) Ulcer of left lower extremity with fat layer exposed: CODE(S): L97.922 - Non-pressure chronic ulcer of unspecified part of left lower leg with fat layer exposed (2) PVD (peripheral vascular disease): CODE(S): I73.9 - Peripheral vascular disease, unspecified (3) Chronic venous insufficiency: CODE(S): I87.2 - Venous insufficiency (chronic) (peripheral) (4) Delayed wound healing: CODE(S): T14.8XXD - Other injury of unspecified body region, subsequent encounter PLAN: Plan Debridement done as documented above, procedure was well-tolerated. Some improvement noted. 7th application of Affinity sample applied to inferior lower extremity ulcer. Covered with Adaptic touch and secured with tape. Leave in place for 1 week. Continue Aquacel and care max to medial ankle and superior ulcers. Continue mupirocin ointment as well. Continue use of compression stockings, leg elevation and exercise. Increased protein intake, protein supplements, zinc and vitamin C also recommended. Continue multivitamins. We have also discussed the possibility for Plastic surgery referral for graft closure. Now has an appointment scheduled with vascular surgery. His questions were answered and was advised to call with any further questions or concerns. Follow-up in 1 week. This note was generated with [employer] dictation software. It may contain incorrect words, spelling, and punctuation that were not noted in checking the note before signing.
[2022-05-18 08:48] VITALS: BP 157/91; PULSE 91; RESP 18; TEMP 36.8; BMI 31.4
--- NOTE | 2022-05-18 13:51 | PN.PCM_ITS ---
History of Present Illness Date of Service: 05/18/22 Chief Complaint: ulcers to the left lower leg History of Wound: This is a 54-year-old male presents to wound healing center with a long-standing history of chronic venous insufficiency, chronic venous hypertension, lower extremity edema, lower extremity pain, and chronic left lower extremity ulcer. The patient has previously undergone endovenous laser ablation of the left and right great saphenous vein, the small saphenous vein, the left accessory saphenous vein, and an incompetent left calf manager infrastructure vein located 15 cm proximal to the left medial malleolus. He is currently wearing graduated compression stockings which are documented to be 20-30 mmHg compression and these are thigh high. He reports great compliance with use. He is also had previous arterial work-up with no intervention recommended by letter, his vascular surgeon. He denies taking nutritional supplementation. He saw dermatology and had a biopsy of the ulcer site. He also was previously treated by infectious disease for various contaminations and infections. He is not antibiotics at this time nor does he have any redness or odor coming from the wound. He denies fever, chill, nausea, vomiting, loss of appetite. 05/18/22: Mr. Jeronimo presents with a new right lower extremity ulceration. He states that this has been present for months and he has been trying to manage it at home without any significant improvement. Opened up months ago, no known precipitating factor. Has been applying wound dressings without any significant improvement. He reports increased drainage. Denies significant pain. No chills, fever or feeling of unwell. Progress of Wound: Has had 7 applications of Affinity sample to his left inferior ulcer. Better granulation tissue and improvement in depth. Other left lower extremity ulcers are stable. Objective Data Objective Data Vital Signs: Vital Signs Temp Pulse Resp BP Pulse Ox O2 Del Method 98.2 F 91 18 157/91 H 99 Room Air 05/18/22 08:48 05/18/22 08:48 05/18/22 08:48 05/18/22 08:48 04/28/22 00:27 05/11/22 08:41 Oxygen Delivery Method Room Air Body Mass Index (BMI) 31.4 Charges/Coding Procedures Integumentary 111xxx-113xx: 95813 Lakeisha subq tissue 20 sq cm/< Add On Codes: 51739 Lakeisha subq tissue add-on Physical Exam Const alert, oriented x3 and no apparent distress General Appearance: cooperative and comfortable Orientation / Consciousness: awake HEENT normocephalic Head and Scalp: normal to inspection, normocephalic and atraumatic Face and Sinus: normal facial exam Eyes EOMs intact bilaterally Neck full ROM and supple General: normal visual inspection Resp normal respiratory effort Effort and Inspection: able to speak in complete sentences GI non-tender Extremity normal to inspection General Extremity: edema Skin Wounds: wounds noted Neuro oriented x3 and CN's II-XII intact bilaterally Psych mental status grossly normal Appearance: grossly normal Debridement Note Debridement Note Wound debrided: Right lower extremity medial ankle Type of Debridement: Excisional debridement Anesthesia Used: 4% Lidocaine Solution Depth: Down to and including healthy tissue and in the subcutaneous layer Percentage of wound debrided: 100 Instrument Used: 5mm curette Tissue Removed: Slough and devitalized tissue Severity: Fat Layer Exposed Amount of bleeding with debridement: Mild Bleeding Controlled with: Pressure Patient tolerated procedure: Patient tolerated procedure well Post-Debridement Measurements and Additional Note: Post-Debridement Measurements/Treatment - Nurse 1 - General Ulcer Assessment Start: 05/04/22 09:14 Freq: Status: Active Protocol: KIMBERLY.MEHDI Activity Type Activity Date Activity User E-sign Co-sign Detail Recorded Client Recorded Date Recorded By Document 05/04/22 09:14 [facility] [id number] 05/04/22 09:25 [facility] Document 05/11/22 08:41 [facility] [id number] 05/11/22 08:55 [facility] Document 05/18/22 08:48 [id number] 05/18/22 09:03 DL 05/04/22 05/11/22 05/18/22 09:14 08:41 08:48 - Today's Visit Information Type of service Follow-up Visit Follow-up Visit Follow-up Visit (Physician/AUTOMOBILE LOCATOR (Physician/AUTOMOBILE LOCATOR (Physician/AUTOMOBILE LOCATOR ) ) ) Arrival Mode Ambulatory Ambulatory Ambulatory Transfer Assistance None None None Patient Identification Verified (Name & Yes Yes Yes ) Patient Requires Transmission-Based No No No Precautions Height and Weight Body Mass Index (BMI) 31.4 31.4 31.4 BMI Classification Obese Obese Obese Vital Signs Temperature (97.8 F-99.1 F) 97.2 F L 97.3 F L 98.2 F Temperature Source Temporal Temporal Temporal Pulse Rate (60-100) 91 89 91 Pulse Location Monitor Monitor Monitor Respiratory Rate (12-18) 16 16 18 Respiratory rate source Observation Observation Oxygen Delivery Method Room Air Room Air Blood Pressure (90/60-120/80) 172/97 H 150/86 H 157/91 H Blood Pressure Mean (mm Hg) 122 107 113 Source Monitor Monitor Monitor Position Sitting Sitting Blood Pressure Location Left Arm Left Arm History Since Last Visit- (Skip if this is Patient's initial visit) Have you changed medications since your No No No last visit? Any new allergies or adverse reactions No No No Had a fall/change in ADL's that may No No No increase risk of falls Signs or symptoms of abuse and/or No No No neglect since last visit Have you been in the hospital since your No No No last visit? Has dressing in place as prescribed Yes Yes Yes Has compression in place as prescribed Yes Yes Yes Has offloadiing in place as prescribed N/A N/A N/A Experienced any changes in pain level or No No No management Left Footwear Regular Shoe Regular Shoe Right Footwear Regular Shoe Regular Shoe Pain Scale: 0-10 Numeric Is Patient Pain Free? Yes Yes Yes WC - Nurse 1 - General Ulcer Measurement Start: 05/04/22 09:14 Freq: Status: Active Protocol: Activity Type Activity Date Activity User E-sign Co-sign Detail Recorded Client Recorded Date Recorded By Document 05/04/22 09:14 [facility] [id number] 05/04/22 09:25 [facility] Document 05/11/22 08:41 [facility] [id number] 05/11/22 08:55 F Document 05/18/22 08:48 DL [id number] 05/18/22 09:03 DL 05/04/22 05/11/22 05/18/22 09:14 08:41 08:48 Wound Center Nurse 1 #15 R Med Ankle -Current Size (cm) - Length 6.8 -Current Size (cm) - Width 4.7 -Current Size (cm) - Depth 0.4 -Total Square Cm 31.96 -Photo Taken Yes -Exudate Amt Medium -Exudate Type Serosanguineous -Wound Margin Distinct, Outline Attached -Granulation Amt Medium (34-66%) -Granulation Quality Red -Necrosis Amt Medium (34-66%) -Necrotic Tissue Type Adherent Slough -Structure Exposed N/A -Texture (Ara-wound Skin Appearance) Scarring -Moisture (Ara-wound Skin Appearance) Dry/Scaly -Color (Ara-wound Skin Appearance) Hemosiderin Staining -Temperature (Ara-wound Skin No Abnormality Appearance) (Pt Warm) -Tenderness on Palpation (Ara-wound No Skin Appearance) -Ulcer Cleansing Soap and Water -Foul Odor after Cleansing No -Anesthetic Used 4% Lidocaine Solution #12 Medial Superior LLE -Combined with other wound No -Current Size (cm) - Length 1.2 1.6 1.7 -Current Size (cm) - Width 1.1 1.2 1.5 -Current Size (cm) - Depth 0.1 0.2 0.2 -Total Square Cm 1.32 1.92 2.55 -Photo Taken Yes No -Epithelialization Small 1-33% -Tunneling No -Undermining/Tunneling No -Circular Undermining No -Exudate Amt Medium Medium Medium -Exudate Type Serosanguineous Serosanguineous Serosanguineous -Wound Margin Distinct, Distinct, Distinct, Outline Outline Outline Attached Attached Attached -Granulation Amt Large (67-100%) Large (67-100%) Large (67-100%) -Granulation Quality Red Red Red -Slough/Fibrin Yes -Necrosis Amt Small (1-33%) None Present (0 None Present (0 %) %) -Necrotic Tissue Type Adherent Slough Adherent Slough -Structure Exposed N/A N/A -Texture (Ara-wound Skin Appearance) Assessed, Scarring Scarring Scarring -Moisture (Ara-wound Skin Appearance) Assessed,Dry/ No Abnormality, Dry/Scaly Scaly Dry/Scaly -Color (Ara-wound Skin Appearance) Assessed, Hemosiderin Hemosiderin Hemosiderin Staining Staining Staining -Temperature (Ara-wound Skin No Abnormality No Abnormality No Abnormality Appearance) (Pt Warm) (Pt Warm) (Pt Warm) -Tenderness on Palpation (Ara-wound No No Skin Appearance) -Ulcer Cleansing Rinsed/ Soap and Water Soap and Water Irrigated with Saline -Foul Odor after Cleansing No No No -Anesthetic Used 4% Lidocaine 4% Lidocaine 4% Lidocaine Solution Solution Solution #11 Medial Inferior LLE -Combined with other wound No -Current Size (cm) - Length 4.2 5 -Current Size (cm) - Width 2.8 3.5 -Current Size (cm) - Depth 0.1 0.2 -Total Square Cm 11.76 17.5 -Photo Taken No Yes No -Epithelialization Small 1-33% -Tunneling No -Undermining/Tunneling No -Circular Undermining No -Exudate Amt Medium Medium Medium -Exudate Type Serosanguineous Serosanguineous Serosanguineous -Wound Margin Distinct, Distinct, Distinct, Outline Outline Outline Attached Attached Attached -Granulation Amt Large (67-100%) Large (67-100%) Large (67-100%) -Granulation Quality Red Red Red -Slough/Fibrin Yes -Necrosis Amt Small (1-33%) None Present (0 None Present (0 %) %) -Necrotic Tissue Type Adherent Slough -Structure Exposed N/A N/A -Texture (Ara-wound Skin Appearance) Assessed, Scarring Scarring Scarring -Moisture (Ara-wound Skin Appearance) Assessed,Dry/ No Abnormality Dry/Scaly Scaly -Color (Ara-wound Skin Appearance) Assessed, Hemosiderin Hemosiderin Hemosiderin Staining Staining Staining -Temperature (Ara-wound Skin No Abnormality No Abnormality No Abnormality Appearance) (Pt Warm) (Pt Warm) (Pt Warm) -Tenderness on Palpation (Ara-wound No No No Skin Appearance) -Ulcer Cleansing Soap and Water Soap and Water -Foul Odor after Cleansing No No -Anesthetic Used 4% Lidocaine 4% Lidocaine 4% Lidocaine Solution Solution Solution #10 Left Medial Ankle -Combined with other wound No -Current Size (cm) - Length 5.7 6 -Current Size (cm) - Width 3.3 3.9 -Current Size (cm) - Depth 0.2 0.2 -Total Square Cm 18.81 23.4 -Photo Taken Yes No -Epithelialization None Present -Tunneling No -Undermining/Tunneling No -Circular Undermining No -Exudate Amt Large Medium Medium -Exudate Type Serosanguineous Serosanguineous Serosanguineous -Wound Margin Thickened Distinct, Distinct, Outline Outline Attached Attached -Granulation Amt Small (1-33%) Medium (34-66%) Medium (34-66%) -Granulation Quality Red Red Red -Slough/Fibrin Yes -Necrosis Amt Large (67-100%) Medium (34-66%) Medium (34-66%) -Necrotic Tissue Type Adherent Slough Adherent Slough Adherent Slough -Structure Exposed N/A N/A -Texture (Ara-wound Skin Appearance) Assessed, Rash Scarring Scarring -Moisture (Ara-wound Skin Appearance) Assessed,Dry/ Dry/Scaly Dry/Scaly Scaly -Color (Ara-wound Skin Appearance) Assessed, Hemosiderin Hemosiderin Hemosiderin Staining Staining Staining -Temperature (Ara-wound Skin No Abnormality No Abnormality No Abnormality Appearance) (Pt Warm) (Pt Warm) (Pt Warm) -Tenderness on Palpation (Ara-wound No No Skin Appearance) -Ulcer Cleansing Soap and Water Soap and Water Soap and Water -Foul Odor after Cleansing No No No -Anesthetic Used 4% Lidocaine 4% Lidocaine 4% Lidocaine Solution Solution Solution Right Calf (cm) 34.2 Right Ankle (cm) 22.7 Left Calf (cm) 34.8 36.6 Left Ankle (cm) 22.8 23.5 WC - Nurse 2 - General Ulcer CM Notes Start: 05/04/22 09:14 Freq: Status: Active Protocol: Activity Type Activity Date Activity User E-sign Co-sign Detail Recorded Client Recorded Date Recorded By Document 05/04/22 09:44 MW [id number] 05/04/22 09:56 MW Edit Result 05/04/22 09:44 MW (1) [id number] 05/05/22 07:13 PL Document 05/11/22 09:02 MW [id number] 05/11/22 09:14 MW Document 05/18/22 09:14 MW [id number] 05/18/22 09:34 MW (1) #12 Medial Superior LLE - Debridement, SubQ, ea addt'l 20sq cm => 1 or part thereof 05/04/22 05/11/22 05/18/22 09:44 09:02 09:14 Wound Center Nurse 2 #16 right Medial LE -Time 09:29 -Correct Patient Yes -Correct Side, Site, Position Yes -Correct Procedure Yes -Procedure Performed Yes -Type of Procedure Debridement -Clinical Debridement Subcutaneous -Tissue Removed Subcutaneous -Post Debridement (cm) - Length 1.3 -Post Debridement (cm) - Width 0.8 -Post Debridement (cm) - Depth 0.1 -Total Square (Post) (cm) 1.04 -Area of Debridement (cm) - Length 1.3 -Area of Debridement (cm) - Width 0.8 -Total Square (Area) (cm) 1.04 -Tunneling No -Undermining/Tunneling No -Circular Undermining No -Wound/Ulcer Outcome Not Healed -Ulcer Cleansing Rinsed/ Irrigated with Saline -Foul Odor after Cleansing No -Bioengineered Tissue No -Bleeding Controlled with Pressure -Treatment Response Procedure Tolerated Well -Offloading No -Debridement - Subq, 1st 20sq cm No #15 R Med Ankle -Time 09:23 -Correct Patient Yes -Correct Side, Site, Position Yes -Correct Procedure Yes -Procedure Performed Yes -Type of Procedure Debridement -Clinical Debridement Subcutaneous -Tissue Removed Subcutaneous -Post Debridement (cm) - Length 7.0 -Post Debridement (cm) - Width 5.5 -Post Debridement (cm) - Depth 0.3 -Total Square (Post) (cm) 38.50 -Area of Debridement (cm) - Length 7.0 -Area of Debridement (cm) - Width 5.5 -Total Square (Area) (cm) 38.50 -Tunneling No -Undermining/Tunneling No -Circular Undermining No -Wound/Ulcer Outcome Not Healed -Ulcer Cleansing Rinsed/ Irrigated with Saline -Foul Odor after Cleansing No -Bioengineered Tissue No -Bleeding Controlled with Pressure -Treatment Response Procedure Tolerated Well -Offloading No -Debridement - Subq, 1st 20sq cm Yes -Debridement, SubQ, ea addt'l 20sq cm 3 or part thereof #12 Medial Superior LLE -Time 09:48 09:03 09:28 -Correct Patient Yes Yes Yes -Correct Side, Site, Position Yes Yes Yes -Correct Procedure Yes Yes Yes -Procedure Performed Yes Yes Yes -Type of Procedure Debridement Debridement Debridement -Clinical Debridement Subcutaneous Subcutaneous Subcutaneous -Tissue Removed Subcutaneous Subcutaneous Subcutaneous -Post Debridement (cm) - Length 1.9 1.6 1.5 -Post Debridement (cm) - Width 1.3 1.3 1.3 -Post Debridement (cm) - Depth 0.1 0.1 0.1 -Total Square (Post) (cm) 2.47 2.08 1.95 -Area of Debridement (cm) - Length 1.9 1.6 1.5 -Area of Debridement (cm) - Width 1.3 1.3 1.3 -Total Square (Area) (cm) 2.47 2.08 1.95 -Tunneling No No No -Undermining/Tunneling No No No -Circular Undermining No No No -Wound/Ulcer Outcome Not Healed Not Healed Not Healed -Ulcer Cleansing Rinsed/ Rinsed/ Rinsed/ Irrigated with Irrigated with Irrigated with Saline Saline Saline -Foul Odor after Cleansing No No No -Bioengineered Tissue No No No -Bleeding Controlled with Pressure Pressure Pressure -Treatment Response Procedure Procedure Procedure Tolerated Well Tolerated Well Tolerated Well -Offloading No No No -Debridement - Subq, 1st 20sq cm Yes Yes No -Debridement, SubQ, ea addt'l 20sq cm 1 1 or part thereof #11 Medial Inferior LLE -Time 09:48 09:03 09:29 -Correct Patient Yes Yes Yes -Correct Side, Site, Position Yes Yes Yes -Correct Procedure Yes Yes Yes -Procedure Performed Yes Yes Yes -Type of Procedure Debridement Debridement Debridement -Clinical Debridement Subcutaneous Subcutaneous Subcutaneous -Tissue Removed Subcutaneous Subcutaneous Subcutaneous -Post Debridement (cm) - Length 4.5 4.8 4.8 -Post Debridement (cm) - Width 3.3 3.4 3.0 -Post Debridement (cm) - Depth 0.1 0.1 0.1 -Total Square (Post) (cm) 14.85 16.32 14.40 -Area of Debridement (cm) - Length 4.5 4.8 4.8 -Area of Debridement (cm) - Width 3.3 3.4 3.0 -Total Square (Area) (cm) 14.85 16.32 14.40 -Tunneling No No No -Undermining/Tunneling No No No -Circular Undermining No No No -Wound/Ulcer Outcome Not Healed Not Healed Not Healed -Ulcer Cleansing Rinsed/ Rinsed/ Rinsed/ Irrigated with Irrigated with Irrigated with Saline Saline Saline -Foul Odor after Cleansing No No No -Bioengineered Tissue No No No -Bleeding Controlled with Pressure Pressure NA -Treatment Response Procedure Procedure Procedure Tolerated Well Tolerated Well Tolerated Well -Offloading No No No -Debridement - Subq, 1st 20sq cm No No No #10 Left Medial Ankle -Time 09:48 09:03 09:29 -Correct Patient Yes Yes Yes -Correct Side, Site, Position Yes Yes Yes -Correct Procedure Yes Yes Yes -Procedure Performed Yes Yes Yes -Type of Procedure Debridement Debridement Debridement -Clinical Debridement Subcutaneous Subcutaneous Subcutaneous -Tissue Removed Subcutaneous Subcutaneous Subcutaneous -Post Debridement (cm) - Length 5.0 5.0 5.0 -Post Debridement (cm) - Width 3.7 3.5 3.5 -Post Debridement (cm) - Depth 0.2 0.2 0.2 -Total Square (Post) (cm) 18.50 17.50 17.50 -Area of Debridement (cm) - Length 5.0 5.0 5.0 -Area of Debridement (cm) - Width 3.7 3.5 3.5 -Total Square (Area) (cm) 18.50 17.50 17.50 -Tunneling No No No -Undermining/Tunneling No No No -Circular Undermining No No No -Wound/Ulcer Outcome Not Healed Not Healed Not Healed -Ulcer Cleansing Rinsed/ Rinsed/ Irrigated with Irrigated with Saline Saline -Foul Odor after Cleansing No No -Bioengineered Tissue No No No -Bleeding Controlled with Pressure Pressure Pressure -Treatment Response Procedure Procedure Procedure Tolerated Well Tolerated Well Tolerated Well -Offloading No No No -Debridement - Subq, 1st 20sq cm No No No Pain Scale: 0-10 Numeric Is Patient Pain Free? Yes Yes Yes - Nurse 3 - General Ulcer D/C NN Start: 05/04/22 09:14 Freq: Status: Active Protocol: Activity Type Activity Date Activity User E-sign Co-sign Detail Recorded Client Recorded Date Recorded By Document 05/04/22 10:06 [place] [id number] 05/04/22 10:07 [place] Document 05/11/22 09:19 [facility] [id number] 05/11/22 09:21 [facility] Document 05/18/22 09:40 [facility] [id number] 05/18/22 09:42 [facility] 05/04/22 05/11/22 05/18/22 10:06 09:19 09:40 Wound Care Nurse 3 #16 right Medial LE -Ulcer Cleansing Rinsed/ Irrigated with Saline -Foul Odor after Cleansing No -Primary Dressing Applied Aquacel AG 4x4 -Other Dressing kerramax -Primary Dressing Covered/Secured with Secured with Tape -Aquacel AG 4x4 1 #15 R Med Ankle -Ulcer Cleansing Rinsed/ Irrigated with Saline -Foul Odor after Cleansing No -Primary Dressing Applied Aquacel AG 4x4 -Other Dressing kerramax -Aquacel AG 4x4 0 #12 Medial Superior LLE -Ulcer Cleansing Rinsed/ Rinsed/ Irrigated with Irrigated with Saline Saline -Foul Odor after Cleansing No No -Primary Dressing Applied Aquacel AG 4x4 Aquacel AG 4x4 Aquacel AG 4x4, Other -Other Dressing abd abd -Primary Dressing Covered/Secured with Dry Gauze, Secured with Secured with Tape Tape -Other Covering pt will apply bactroban at home -Aquacel AG 4x4 1 1 0 #11 Medial Inferior LLE -Other Dressing affinity affinity product -Primary Dressing Covered/Secured with Other -Other Covering kerramax kerramax #10 Left Medial Ankle -Ulcer Cleansing Rinsed/ Rinsed/ Irrigated with Irrigated with Saline Saline -Foul Odor after Cleansing No No -Primary Dressing Applied Aquacel AG 4x4 Aquacel AG 4x4 -Other Dressing pt will apply bactroban at home -Primary Dressing Covered/Secured with Secured with Secured with Tape Tape -Other Covering kerramax kerramax -Aquacel AG 4x4 0 0 lester -Other pt applied own compression stockings Left -Other pt applied own compression stocking Treatment Response Procedure Procedure Tolerated Well Tolerated Well Pain Scale: 0-10 Numeric Is Patient Pain Free? Yes Yes Yes WC - Visit Discharge Discharge Condition Stable Stable Stable Ambulatory Status Ambulatory Ambulatory Ambulatory Transportation Private Auto Private Auto Private Auto Medication Reconcilliation completed & No provided to patient/care provider Clinical Summary of Care Provided Yes Notes: pt brings in own compression stocking Additional Wound Wound debrided: Right may Type of Debridement: Excisional debridement Anesthesia Used: 4% Lidocaine Solution Depth: Down to and including healthy tissue and in the subcutaneous layer Percentage of wound debrided: 100 Instrument Used: 5mm curette Tissue Removed: Slough and devitalized tissue Severity: Fat Layer Exposed Amount of bleeding with debridement: Mild Bleeding Controlled with: Pressure Patient tolerated procedure: Patient tolerated procedure well Additional Wound Wound debrided: Left medial ankle Type of Debridement: Excisional debridement Anesthesia Used: 4% Lidocaine Solution Depth: Down to and including healthy tissue and in the subcutaneous layer Percentage of wound debrided: 100 Instrument Used: 5mm curette Tissue Removed: Slough and devitalized tissue Severity: Fat Layer Exposed Amount of bleeding with debridement: Mild Bleeding Controlled with: Pressure Patient tolerated procedure: Patient tolerated procedure well Additional Wound Wound debrided: Left lower extremity inferior Type of Debridement: Excisional debridement Anesthesia Used: 4% Lidocaine Solution Depth: Down to and including healthy tissue Percentage of wound debrided: 100 Instrument Used: 5mm curette Tissue Removed: Slough and devitalized tissue Severity: Fat Layer Exposed Amount of bleeding with debridement: Mild Bleeding Controlled with: Pressure Patient tolerated procedure: Patient tolerated procedure well Additional Wound Wound debrided: Left lower extremity superior Type of Debridement: Excisional debridement Anesthesia Used: 4% Lidocaine Solution Depth: Down to and including healthy tissue and in the subcutaneous layer Percentage of wound debrided: 100 Instrument Used: 5mm curette Tissue Removed: Slough and devitalized tissue Severity: Fat Layer Exposed Amount of bleeding with debridement: Mild Bleeding Controlled with: Pressure Patient tolerated procedure: Patient tolerated procedure well Assessment/Plan Assessment/Plan (1) Ulcer of left lower extremity with fat layer exposed: CODE(S): L97.922 - Non-pressure chronic ulcer of unspecified part of left lower leg with fat layer exposed (2) Ulcer of right lower extremity with fat layer exposed: CODE(S): L97.912 - Non-pressure chronic ulcer of unspecified part of right lower leg with fat layer exposed (3) PVD (peripheral vascular disease): CODE(S): I73.9 - Peripheral vascular disease, unspecified (4) Chronic venous insufficiency: CODE(S): I87.2 - Venous insufficiency (chronic) (peripheral) (5) Delayed wound healing: CODE(S): T14.8XXD - Other injury of unspecified body region, subsequent encounter PLAN: Plan New right lower extremity ulcerations which have been present for months. He states that he has tried to manage it at home however was unsuccessful and so brought it up to us today. Debridement done as documented above, procedure was well-tolerated. Cultures taken from right lower extremity ulcerations. 8th and final application of Affinity sample applied to inferior lower extremity ulcer. Covered with Adaptic touch and secured with tape. Leave in place for 10 days. After 10 days, apply Aquacel and Care max care. Continue Aquacel and care max to all other ulcers. Continue mupirocin ointment as well. Continue use of compression stockings, leg elevation and exercise. Increased protein intake, protein supplements, zinc and vitamin C also recommended. Continue multivitamins. We have also discussed the possibility for Plastic surgery referral for graft closure. Now has an appointment scheduled with vascular vincent lucas. His questions were answered and was advised to call with any further questions or concerns. Follow-up in 2 weeks This note was generated with [employer] dictation software. It may contain incorrect words, spelling, and punctuation that were not noted in checking the note before signing.
== END 2022-05-28 23:59 | disposition home or self-care (01) ==
LOC: WC 09:00
PROVIDERS: Visit Provider Internal Medicine
DX: I73.9 Peripheral vascular disease, unspecified (principal); L97.822 Non-pressure chronic ulcer of other part of left lower leg with fat layer exposed; L97.312 Non-pressure chronic ulcer of right ankle with fat layer exposed; L97.322 Non-pressure chronic ulcer of left ankle with fat layer exposed; L97.812 Non-pressure chronic ulcer of other part of right lower leg with fat layer exposed; I87.2 Venous insufficiency (chronic) (peripheral); R60.0 Localized edema
CPT/HCPCS: 11042; 11045; 87070; 87075; 87077; 87186; 87205

== ENCOUNTER 2022-06-15 09:00 | Outpatient (RCR) | payer BC, SELFPAY ==
[2022-05-29 00:22] VITALS: BP 157/91; PULSE 91; RESP 18; TEMP 36.8; O2SAT 99; BMI 31.4
[2022-06-01 08:47] VITALS: BP 165/75; PULSE 92; RESP 16; TEMP 36.3; BMI 31.4
--- NOTE | 2022-06-01 09:47 | PN.PCM_ITS ---
History of Present Illness Date of Service: 06/01/22 Chief Complaint: ulcers to the left lower leg History of Wound: This is a 54-year-old male presents to wound healing center with a long-standing history of chronic venous insufficiency, chronic venous hypertension, lower extremity edema, lower extremity pain, and chronic left lower extremity ulcer. The patient has previously undergone endovenous laser ablation of the left and right great saphenous vein, the small saphenous vein, the left accessory saphenous vein, and an incompetent left calf guard dance hall vein located 15 cm proximal to the left medial malleolus. He is currently wearing graduated compression stockings which are documented to be 20-30 mmHg compression and these are thigh high. He reports great compliance with use. He is also had previous arterial work-up with no intervention recommended by letter, his vascular surgeon. He denies taking nutritional supplementation. He saw dermatology and had a biopsy of the ulcer site. He also was previously treated by infectious disease for various contaminations and infections. He is not antibiotics at this time nor does he have any redness or odor coming from the wound. He denies fever, chill, nausea, vomiting, loss of appetite. 05/18/22: Mr. Jeronimo presents with a new right lower extremity ulceration. He states that this has been present for months and he has been trying to manage it at home without any significant improvement. Opened up months ago, no known precipitating factor. Has been applying wound dressings without any significant improvement. He reports increased drainage. Denies significant pain. No chills, fever or feeling of unwell. Progress of Wound: Left lower extremity ulcers with some improvement. He reports left great toe swelling and pain which has been present for 3 weeks, has not had this evaluate d. Right lower extremity ulcerations also appears stable. Had some cultures done at his last visit. Objective Data Objective Data Vital Signs: Vital Signs Temp Pulse Resp BP Pulse Ox O2 Del Method 97.4 F L 92 16 165/75 H 99 Room Air 06/01/22 08:47 06/01/22 08:47 06/01/22 08:47 06/01/22 08:47 05/29/22 00:22 06/01/22 08:47 Oxygen Delivery Method Room Air Body Mass Index (BMI) 31.4 Charges/Coding Procedures Integumentary 111xxx-113xx: [id number] Lakeisha subq tissue 20 sq cm/< Add On Codes: 05039 Lakeisha subq tissue add-on (x3 additional square centimeter debrided, please refer to clinical note) Physical Exam Const alert, oriented x3 and no apparent distress General Appearance: cooperative and comfortable Orientation / Consciousness: awake HEENT normocephalic Head and Scalp: normal to inspection, normocephalic and atraumatic Face and Sinus: normal facial exam Eyes EOMs intact bilaterally Neck full ROM and supple General: normal visual inspection Resp normal respiratory effort Effort and Inspection: able to speak in complete sentences GI non-tender Extremity normal to inspection General Extremity: edema Skin Wounds: wounds noted Neuro oriented x3 and CN's II-XII intact bilaterally Psych mental status grossly normal Appearance: grossly normal Debridement Note Debridement Note Wound debrided: Right lower extremity inferior Type of Debridement: Excisional debridement Anesthesia Used: 4% Lidocaine Solution Depth: Down to and including healthy tissue and in the subcutaneous layer Percentage of wound debrided: 100 Instrument Used: 5mm curette Tissue Removed: Slough and devitalized tissue Severity: Fat Layer Exposed Amount of bleeding with debridement: Mild Bleeding Controlled with: Pressure Patient tolerated procedure: Patient tolerated procedure well Post-Debridement Measurements and Additional Note: Post-Debridement Measurements/Treatment - Nurse 1 - General Ulcer Assessment Start: 06/01/22 08:47 Freq: Status: Active Protocol: SHANTA Activity Type Activity Date Activity User E-sign Co-sign Detail Recorded Client Recorded Date Recorded By Document 06/01/22 08:47 [facility] [id number] 06/01/22 09:00 [facility] 06/01/22 08:47 - Today's Visit Information Type of service Follow-up Visit (Physician/STUDY ABROAD COORDINATOR ) Arrival Mode Ambulatory Transfer Assistance None Patient Identification Verified (Name & Yes ) Patient Requires Transmission-Based No Precautions Height and Weight Body Mass Index (BMI) 31.4 BMI Classification Obese Vital Signs Temperature (97.8 F-99.1 F) 97.4 F L Temperature Source Temporal Pulse Rate (60-100) 92 Pulse Location Monitor Respiratory Rate (12-18) 16 Respiratory rate source Observation Oxygen Delivery Method Room Air Blood Pressure (90/60-120/80) 165/75 H Blood Pressure Mean (mm Hg) 105 Source Monitor Position Sitting Blood Pressure Location Left Arm History Since Last Visit- (Skip if this is Patient's initial visit) Have you changed medications since your No last visit? Any new allergies or adverse reactions No Had a fall/change in ADL's that may No increase risk of falls Signs or symptoms of abuse and/or No neglect since last visit Have you been in the hospital since your No last visit? Has dressing in place as prescribed Yes Has compression in place as prescribed No Has offloadiing in place as prescribed N/A Experienced any changes in pain level or No management Left Footwear Regular Shoe Right Footwear Regular Shoe Pain Scale: 0-10 Numeric Is Patient Pain Free? Yes WC - Nurse 1 - General Ulcer Measurement Start: 06/01/22 08:47 Freq: Status: Active Protocol: Activity Type Activity Date Activity User E-sign Co-sign Detail Recorded Client Recorded Date Recorded By Document 06/01/22 08:47 [facility] [id number] 06/01/22 09:00 [facility] 06/01/22 08:47 Wound Center Nurse 1 #16 right Medial LE -Combined with other wound No -Current Size (cm) - Length 1.2 -Current Size (cm) - Width 0.6 -Current Size (cm) - Depth 0.1 -Total Square Cm 0.72 -Date of Last Picture (Recall this 06/01/22 field) -Photo Taken Yes -Epithelialization None Present -Tunneling No -Undermining/Tunneling No -Circular Undermining No -Exudate Amt None Present -Wound Margin Distinct, Outline Attached -Granulation Amt None Present (0 %) -Slough/Fibrin Yes -Necrosis Amt Large (67-100%) -Necrotic Tissue Type Eschar -Texture (Ara-wound Skin Appearance) Assessed, Scarring -Moisture (Ara-wound Skin Appearance) Assessed,Dry/ Scaly -Color (Ara-wound Skin Appearance) Assessed, Hemosiderin Staining -Temperature (Ara-wound Skin No Abnormality Appearance) (Pt Warm) -Tenderness on Palpation (Ara-wound No Skin Appearance) -Ulcer Cleansing Soap and Water -Foul Odor after Cleansing No -Anesthetic Used 4% Lidocaine Solution #15 R Med Ankle -Combined with other wound No -Current Size (cm) - Length 7 -Current Size (cm) - Width 5.7 -Current Size (cm) - Depth 0.4 -Total Square Cm 39.9 -Date of Last Picture (Recall this 06/01/22 field) -Photo Taken Yes -Epithelialization None Present -Tunneling No -Undermining/Tunneling No -Circular Undermining No -Exudate Amt Medium -Exudate Type Serosanguineous -Wound Margin Thickened -Granulation Amt Large (67-100%) -Granulation Quality Red -Slough/Fibrin Yes -Necrosis Amt Small (1-33%) -Necrotic Tissue Type Adherent Slough -Texture (Ara-wound Skin Appearance) Assessed, Scarring -Moisture (Ara-wound Skin Appearance) Assessed,Dry/ Scaly -Color (Ara-wound Skin Appearance) Assessed, Hemosiderin Staining -Temperature (Ara-wound Skin No Abnormality Appearance) (Pt Warm) -Tenderness on Palpation (Ara-wound No Skin Appearance) -Ulcer Cleansing Soap and Water -Foul Odor after Cleansing No -Anesthetic Used 4% Lidocaine Solution #12 Medial Superior LLE -Combined with other wound No -Current Size (cm) - Length 1.3 -Current Size (cm) - Width 0.8 -Current Size (cm) - Depth 0.1 -Total Square Cm 1.04 -Date of Last Picture (Recall this 06/01/22 field) -Photo Taken Yes -Epithelialization Small 1-33% -Tunneling No -Undermining/Tunneling No -Circular Undermining No -Exudate Amt Small -Exudate Type Serosanguineous -Wound Margin Distinct, Outline Attached -Granulation Amt Large (67-100%) -Granulation Quality Red -Slough/Fibrin Yes -Necrosis Amt Small (1-33%) -Necrotic Tissue Type Adherent Slough -Texture (Ara-wound Skin Appearance) Assessed, Scarring -Moisture (Ara-wound Skin Appearance) Assessed,Dry/ Scaly -Color (Ara-wound Skin Appearance) Assessed, Hemosiderin Staining -Temperature (Ara-wound Skin No Abnormality Appearance) (Pt Warm) -Tenderness on Palpation (Ara-wound No Skin Appearance) -Ulcer Cleansing Soap and Water -Foul Odor after Cleansing No -Anesthetic Used 4% Lidocaine Solution #11 Medial Inferior LLE -Combined with other wound No -Current Size (cm) - Length 4.7 -Current Size (cm) - Width 3.3 -Current Size (cm) - Depth 0.1 -Total Square Cm 15.51 -Date of Last Picture (Recall this 06/01/22 field) -Photo Taken Yes -Epithelialization Small 1-33% -Tunneling No -Undermining/Tunneling No -Circular Undermining No -Exudate Amt Medium -Exudate Type Serosanguineous -Wound Margin Distinct, Outline Attached -Granulation Amt Large (67-100%) -Granulation Quality Red -Slough/Fibrin Yes -Necrosis Amt Small (1-33%) -Necrotic Tissue Type Adherent Slough -Texture (Ara-wound Skin Appearance) Assessed, Scarring -Moisture (Ara-wound Skin Appearance) Assessed,Dry/ Scaly -Color (Ara-wound Skin Appearance) Assessed, Hemosiderin Staining -Temperature (Ara-wound Skin No Abnormality Appearance) (Pt Warm) -Tenderness on Palpation (Ara-wound No Skin Appearance) -Ulcer Cleansing Soap and Water -Foul Odor after Cleansing No -Anesthetic Used 4% Lidocaine Solution #10 Left Medial Ankle -Combined with other wound No -Current Size (cm) - Length 6.4 -Current Size (cm) - Width 4 -Current Size (cm) - Depth 0.3 -Total Square Cm 25.6 -Date of Last Picture (Recall this 06/01/22 field) -Photo Taken Yes -Epithelialization None Present -Tunneling No -Undermining/Tunneling No -Circular Undermining No -Exudate Amt Large -Exudate Type Serosanguineous -Wound Margin Thickened -Granulation Amt Small (1-33%) -Granulation Quality Red -Slough/Fibrin Yes -Necrosis Amt Large (67-100%) -Necrotic Tissue Type Adherent Slough -Texture (Ara-wound Skin Appearance) Assessed, Scarring -Moisture (Ara-wound Skin Appearance) Assessed,Dry/ Scaly -Color (Ara-wound Skin Appearance) Assessed, Hemosiderin Staining -Temperature (Ara-wound Skin No Abnormality Appearance) (Pt Warm) -Tenderness on Palpation (Ara-wound No Skin Appearance) -Ulcer Cleansing Soap and Water -Foul Odor after Cleansing No -Anesthetic Used 4% Lidocaine Solution Lower Limb Edema Present Yes Right Calf (cm) 36.5 Right Ankle (cm) 23.3 Left Calf (cm) 34 Left Ankle (cm) 24.7 WC - Nurse 2 - General Ulcer CM Notes Start: 06/01/22 08:47 Freq: Status: Active Protocol: Activity Type Activity Date Activity User E-sign Co-sign Detail Recorded Client Recorded Date Recorded By Document 06/01/22 09:16 CARLOS Desktop 06/01/22 09:28 CARLOS 06/01/22 09:16 Wound Center Nurse 2 #16 right Medial LE -Time 09:17 -Correct Patient Yes -Correct Side, Site, Position Yes -Correct Procedure Yes -Procedure Performed Yes -Type of Procedure Debridement -Clinical Debridement Subcutaneous -Tissue Removed Subcutaneous -Post Debridement (cm) - Length 1.2 -Post Debridement (cm) - Width 0.5 -Post Debridement (cm) - Depth 0.1 -Total Square (Post) (cm) 0.60 -Area of Debridement (cm) - Length 1.2 -Area of Debridement (cm) - Width 0.5 -Total Square (Area) (cm) 0.60 -Tunneling No -Undermining/Tunneling No -Circular Undermining No -Wound/Ulcer Outcome Not Healed -Ulcer Cleansing Rinsed/ Irrigated with Saline -Foul Odor after Cleansing No -Bioengineered Tissue No -Bleeding Controlled with Pressure -Treatment Response Procedure Tolerated Well -Offloading No -Debridement - Subq, 1st 20sq cm No #15 R Med Ankle -Time 09:17 -Correct Patient Yes -Correct Side, Site, Position Yes -Correct Procedure Yes -Procedure Performed Yes -Type of Procedure Debridement -Clinical Debridement Subcutaneous -Tissue Removed Subcutaneous -Post Debridement (cm) - Length 7.5 -Post Debridement (cm) - Width 4 -Post Debridement (cm) - Depth 0.3 -Total Square (Post) (cm) 30.0 -Area of Debridement (cm) - Length 7.5 -Area of Debridement (cm) - Width 4 -Total Square (Area) (cm) 30.0 -Tunneling No -Undermining/Tunneling No -Circular Undermining No -Wound/Ulcer Outcome Not Healed -Ulcer Cleansing Rinsed/ Irrigated with Saline -Foul Odor after Cleansing No -Bioengineered Tissue No -Bleeding Controlled with Pressure -Treatment Response Procedure Tolerated Well -Offloading No -Debridement - Subq, 1st 20sq cm No #12 Medial Superior LLE -Time 09:17 -Correct Patient Yes -Correct Side, Site, Position Yes -Correct Procedure Yes -Procedure Performed Yes -Type of Procedure Debridement -Clinical Debridement Subcutaneous -Tissue Removed Subcutaneous -Post Debridement (cm) - Length 1.5 -Post Debridement (cm) - Width 1 -Post Debridement (cm) - Depth 0.1 -Total Square (Post) (cm) 1.5 -Area of Debridement (cm) - Length 1.5 -Area of Debridement (cm) - Width 1 -Total Square (Area) (cm) 1.5 -Tunneling No -Undermining/Tunneling No -Circular Undermining No -Wound/Ulcer Outcome Not Healed -Ulcer Cleansing Rinsed/ Irrigated with Saline -Foul Odor after Cleansing No -Bioengineered Tissue No -Bleeding Controlled with Pressure -Treatment Response Procedure Tolerated Well -Offloading No -Debridement - Subq, 1st 20sq cm No #11 Medial Inferior LLE -Time 09:18 -Correct Patient Yes -Correct Side, Site, Position Yes -Correct Procedure Yes -Procedure Performed Yes -Type of Procedure Debridement -Clinical Debridement Subcutaneous -Tissue Removed Subcutaneous -Post Debridement (cm) - Length 5 -Post Debridement (cm) - Width 3.3 -Post Debridement (cm) - Depth 0.1 -Total Square (Post) (cm) 16.5 -Area of Debridement (cm) - Length 5 -Area of Debridement (cm) - Width 3.3 -Total Square (Area) (cm) 16.5 -Tunneling No -Undermining/Tunneling No -Circular Undermining No -Wound/Ulcer Outcome Not Healed -Ulcer Cleansing Rinsed/ Irrigated with Saline -Foul Odor after Cleansing No -Bioengineered Tissue No -Bleeding Controlled with Pressure -Treatment Response Procedure Tolerated Well -Offloading No -Debridement - Subq, 1st 20sq cm No #10 Left Medial Ankle -Time 09:19 -Correct Patient Yes -Correct Side, Site, Position Yes -Correct Procedure Yes -Procedure Performed Yes -Type of Procedure Debridement -Clinical Debridement Subcutaneous -Tissue Removed Subcutaneous -Post Debridement (cm) - Length 4.5 -Post Debridement (cm) - Width 3 -Post Debridement (cm) - Depth 0.1 -Total Square (Post) (cm) 13.5 -Area of Debridement (cm) - Length 4.5 -Area of Debridement (cm) - Width 3 -Total Square (Area) (cm) 13.5 -Tunneling No -Undermining/Tunneling No -Circular Undermining No -Wound/Ulcer Outcome Not Healed -Ulcer Cleansing Rinsed/ Irrigated with Saline -Foul Odor after Cleansing No -Bioengineered Tissue No -Bleeding Controlled with Pressure -Treatment Response Procedure Tolerated Well -Offloading No -Debridement - Subq, 1st 20sq cm Yes -Debridement, SubQ, ea addt'l 20sq cm 3 or part thereof Pain Scale: 0-10 Numeric Is Patient Pain Free? Yes - Nurse 3 - General Ulcer D/C NN Start: 06/01/22 08:47 Freq: Status: Active Protocol: Activity Type Activity Date Activity User E-sign Co-sign Detail Recorded Client Recorded Date Recorded By Document 06/01/22 09:39 [facility] [id number] 06/01/22 09:41 [facility] 06/01/22 09:39 Wound Care Nurse 3 #16 right Medial LE -Ulcer Cleansing Rinsed/ Irrigated with Saline -Foul Odor after Cleansing No -Primary Dressing Applied Aquacel AG 4x4, Other -Other Dressing kerramax, -Primary Dressing Covered/Secured with Secured with Tape -Other Covering pt to apply bactroban @ home w/ next drsg chg -Aquacel AG 4x4 2 #15 R Med Ankle -Ulcer Cleansing Rinsed/ Irrigated with Saline -Foul Odor after Cleansing No -Primary Dressing Applied Aquacel AG 4x4 -Other Dressing kerramax -Primary Dressing Covered/Secured with Secured with Tape -Aquacel AG 4x4 0 #12 Medial Superior LLE -Ulcer Cleansing Rinsed/ Irrigated with Saline -Foul Odor after Cleansing No -Primary Dressing Applied Aquacel AG 4x4 -Primary Dressing Covered/Secured with Secured with Tape -Other Covering abd -Aquacel AG 4x4 0 #11 Medial Inferior LLE -Ulcer Cleansing Rinsed/ Irrigated with Saline -Foul Odor after Cleansing No -Primary Dressing Applied Aquacel AG 4x4 -Other Dressing kerramax -Primary Dressing Covered/Secured with Secured with Tape -Aquacel AG 4x4 0 #10 Left Medial Ankle -Ulcer Cleansing Rinsed/ Irrigated with Saline -Foul Odor after Cleansing No -Primary Dressing Applied Aquacel AG 4x4 -Other Dressing kerramax -Primary Dressing Covered/Secured with Secured with Tape -Aquacel AG 4x4 0 ESTELLE -Other PT APPLIED OWN COMPRESSION STOCKINGS Treatment Response Procedure Tolerated Well Pain Scale: 0-10 Numeric Is Patient Pain Free? Yes - Visit Discharge Discharge Condition Stable Ambulatory Status Ambulatory, Walker Transportation Private Auto Additional Wound Wound debrided: Left lower extremity ( superior ) Type of Debridement: Excisional debridement Anesthesia Used: 4% Lidocaine Solution Depth: Down to and including healthy tissue and in the subcutaneous layer Percentage of wound debrided: 100 Instrument Used: 5mm curette Tissue Removed: Slough and devitalized tissue Severity: Fat Layer Exposed Amount of bleeding with debridement: Mild Bleeding Controlled with: Pressure Patient tolerated procedure: Patient tolerated procedure well Additional Wound Wound debrided: Left medial ankle Type of Debridement: Excisional debridement Anesthesia Used: 4% Lidocaine Solution Depth: Down to and including healthy tissue and in the subcutaneous layer Percentage of wound debrided: 100 Instrument Used: 5mm curette Tissue Removed: Slough and devitalized tissue Severity: Fat Layer Exposed Amount of bleeding with debridement: Mild Bleeding Controlled with: Pressure Patient tolerated procedure: Patient tolerated procedure well Additional Wound Wound debrided: Left lower extremity ( Inferior ) Type of Debridement: Excisional debridement Anesthesia Used: 4% Lidocaine Solution Depth: Down to and including healthy tissue and in the subcutaneous layer Percentage of wound debrided: 100 Instrument Used: 5mm curette Tissue Removed: Slough and devitalized Severity: Fat Layer Exposed Amount of bleeding with debridement: Mild Bleeding Controlled with: Pressure Patient tolerated procedure: Patient tolerated procedure well Additional Wound Wound debrided: Left Lower Extremity ( Superior ) Type of Debridement: Excisional debridement Anesthesia Used: 4% Lidocaine Solution Depth: Down to and including healthy tissue and in the subcutaneous layer Percentage of wound debrided: 100 Instrument Used: 5mm curette Tissue Removed: Slough and devitalized tissue Severity: Fat Layer Exposed Amount of bleeding with debridement: Mild Bleeding Controlled with: Pressure Patient tolerated procedure: Patient tolerated procedure well Assessment/Plan Assessment/Plan (1) Ulcer of left lower extremity with fat layer exposed: CODE(S): L97.922 - Non-pressure chronic ulcer of unspecified part of left lower leg with fat layer exposed (2) Ulcer of right lower extremity with fat layer exposed: CODE(S): L97.912 - Non-pressure chronic ulcer of unspecified part of right lower leg with fat layer exposed (3) PVD (peripheral vascular disease): CODE(S): I73.9 - Peripheral vascular disease, unspecified (4) Chronic venous insufficiency: CODE(S): I87.2 - Venous insufficiency (chronic) (peripheral) (5) Delayed wound healing: CODE(S): T14.8XXD - Other injury of unspecified body region, subsequent encounter PLAN: Plan Debridement done as documented above, procedure was well-tolerated. Cultures reviewed, appears to be more contaminants than true infection. Ulcers also do not look clinically infected. In regards to his left great toe swelling, he was advised to follow-up with his primary care physician as this may be gout. Pain and swelling has been present for 3 weeks. Continue Aquacel and care max to all other ulcers. Continue mupirocin ointment as well. Continue use of compression stockings, leg elevation and exercise. Increased protein intake, protein supplements, zinc and vitamin C also recommended. Continue multivitamins. We have also discussed the possibility for Plastic surgery referral for graft closure. He states that he will like to see another Vascular surgeon. He cancelled his appointment with Dr. Cade. His questions were answered and was advised to call with any further questions or concerns. Follow-up in 2 weeks per patient preference. This note was generated with [employer] dictation software. It may contain incorrect words, spelling, and punctuation that were not noted in checking the note before signing.
[2022-06-15 09:01] VITALS: BP 161/86; PULSE 77; RESP 16; TEMP 36; BMI 31.4
--- NOTE | 2022-06-15 12:59 | PCM.WC.PN ---
History of Present Illness Date of Service: 06/15/22 Chief Complaint: ulcers to the left lower leg History of Wound: This is a 54-year-old male presents to wound healing center with a long-standing history of chronic venous insufficiency, chronic venous hypertension, lower extremity edema, lower extremity pain, and chronic left lower extremity ulcer. The patient has previously undergone endovenous laser ablation of the left and right great saphenous vein, the small saphenous vein, the left accessory saphenous vein, and an incompetent left calf pipe and tank fabricator vein located 15 cm proximal to the left medial malleolus. He is currently wearing graduated compression stockings which are documented to be 20-30 mmHg compression and these are thigh high. He reports great compliance with use. He is also had previous arterial work-up with no intervention recommended by letter, his vascular surgeon. He denies taking nutritional supplementation. He saw dermatology and had a biopsy of the ulcer site. He also was previously treated by infectious disease for various contaminations and infections. He is not antibiotics at this time nor does he have any redness or odor coming from the wound. He denies fever, chill, nausea, vomiting, loss of appetite. 05/18/22: Mr. Jeronimo presents with a new right lower extremity ulceration. He states that this has been present for months and he has been trying to manage it at home without any significant improvement. Opened up months ago, no known precipitating factor. Has been applying wound dressings without any significant improvement. He reports increased drainage. Denies significant pain. No chills, fever or feeling of unwell. Progress of Wound: He had called in with increased drainage to his right lower extremity however he states that it has resolved. He was advised to change his dressings twice daily but he did not. Has been doing daily changes. He is concerned about an infection. Left lower extremity ulcers are stable. Objective Data Objective Data Vital Signs: Vital Signs Temp Pulse Resp BP Pulse Ox O2 Del Method 96.8 F L 77 16 161/86 H 99 Room Air 06/15/22 09:01 06/15/22 09:01 06/15/22 09:01 06/15/22 09:01 05/29/22 00:22 06/15/22 09:01 Oxygen Delivery Method Room Air Body Mass Index (BMI) 31.4 Charges/Coding Procedures Integumentary 111xxx-113xx: [id number] Lakeisha subq tissue 20 sq cm/< Add On Codes: 69354 Lakeisha subq tissue add-on (x3 additional square centimeter debrided, please refer to clinical note.) Physical Exam Const alert, oriented x3 and no apparent distress General Appearance: cooperative and comfortable Orientation / Consciousness: awake HEENT normocephalic Head and Scalp: normal to inspection, normocephalic and atraumatic Face and Sinus: normal facial exam Eyes EOMs intact bilaterally Neck full ROM and supple General: normal visual inspection Resp normal respiratory effort Effort and Inspection: able to speak in complete sentences GI non-tender Extremity normal to inspection General Extremity: edema Skin Wounds: wounds noted Neuro oriented x3 and CN's II-XII intact bilaterally Psych mental status grossly normal Appearance: grossly normal Debridement Note Debridement Note Wound debrided: Right medial lower extremity Type of Debridement: Excisional debridement Anesthesia Used: 4% Lidocaine Solution Depth: Down to and including healthy tissue and in the subcutaneous layer Percentage of wound debrided: 100 Instrument Used: 5mm curette Tissue Removed: Slough and devitalized tissue Severity: Fat Layer Exposed Amount of bleeding with debridement: Mild Bleeding Controlled with: Pressure Patient tolerated procedure: Patient tolerated procedure well Post-Debridement Measurements and Additional Note: Post-Debridement Measurements/Treatment - Nurse 1 - General Ulcer Assessment Start: 06/01/22 08:47 Freq: Status: Active Protocol: SHANTA Activity Type Activity Date Activity User E-sign Co-sign Detail Recorded Client Recorded Date Recorded By Document 06/01/22 08:47 [facility] [id number] 06/01/22 09:00 BMF Document 06/15/22 09:01 DL [id number] 06/15/22 09:13 DL 06/01/22 06/15/22 08:47 09:01 - Today's Visit Information Type of service Follow-up Visit Follow-up Visit (Physician/SHOP REPAIRER (Physician/SHOP REPAIRER ) ) Arrival Mode Ambulatory Ambulatory Transfer Assistance None None Patient Identification Verified (Name & Yes Yes ) Patient Requires Transmission-Based No No Precautions Height and Weight Body Mass Index (BMI) 31.4 31.4 BMI Classification Obese Obese Vital Signs Temperature (97.8 F-99.1 F) 97.4 F L 96.8 F L Temperature Source Temporal Temporal Pulse Rate (60-100) 92 77 Pulse Location Monitor Monitor Respiratory Rate (12-18) 16 16 Respiratory rate source Observation Observation Oxygen Delivery Method Room Air Room Air Blood Pressure (90/60-120/80) 165/75 H 161/86 H Blood Pressure Mean (mm Hg) 105 111 Source Monitor Monitor Position Sitting Sitting Blood Pressure Location Left Arm Left Arm History Since Last Visit- (Skip if this is Patient's initial visit) Have you changed medications since your No No last visit? Any new allergies or adverse reactions No No Had a fall/change in ADL's that may No No increase risk of falls Signs or symptoms of abuse and/or No No neglect since last visit Have you been in the hospital since your No No last visit? Has dressing in place as prescribed Yes Yes Has compression in place as prescribed No Yes Has offloadiing in place as prescribed N/A N/A Experienced any changes in pain level or No No management Left Footwear Regular Shoe Regular Shoe Right Footwear Regular Shoe Regular Shoe Pain Scale: 0-10 Numeric Is Patient Pain Free? Yes Yes WC - Nurse 1 - General Ulcer Measurement Start: 06/01/22 08:47 Freq: Status: Active Protocol: Activity Type Activity Date Activity User E-sign Co-sign Detail Recorded Client Recorded Date Recorded By Document 06/01/22 08:47 [facility] [id number] 06/01/22 09:00 BM Document 06/15/22 09:01 DL [id number] 06/15/22 09:13 DL 06/01/22 06/15/22 08:47 09:01 Wound Center Nurse 1 #16 right Medial LE -Combined with other wound No No -Current Size (cm) - Length 1.2 1.1 -Current Size (cm) - Width 0.6 0.7 -Current Size (cm) - Depth 0.1 0.1 -Total Square Cm 0.72 0.77 -Date of Last Picture (Recall this 06/01/22 06/15/22 field) -Photo Taken Yes Yes -Epithelialization None Present None Present -Tunneling No No -Undermining/Tunneling No No -Circular Undermining No No -Exudate Amt None Present None Present -Wound Margin Distinct, Distinct, Outline Outline Attached Attached -Granulation Amt None Present (0 None Present (0 %) %) -Slough/Fibrin Yes Yes -Necrosis Amt Large (67-100%) Large (67-100%) -Necrotic Tissue Type Eschar Eschar -Texture (Ara-wound Skin Appearance) Assessed, Assessed, Scarring Scarring -Moisture (Ara-wound Skin Appearance) Assessed,Dry/ Assessed,Dry/ Scaly Scaly -Color (Ara-wound Skin Appearance) Assessed, Assessed, Hemosiderin Hemosiderin Staining Staining -Temperature (Ara-wound Skin No Abnormality No Abnormality Appearance) (Pt Warm) (Pt Warm) -Tenderness on Palpation (Ara-wound No No Skin Appearance) -Ulcer Cleansing Soap and Water Soap and Water -Foul Odor after Cleansing No No -Anesthetic Used 4% Lidocaine 4% Lidocaine Solution Solution #15 R Med Ankle -Combined with other wound No No -Current Size (cm) - Length 7 7.8 -Current Size (cm) - Width 5.7 5 -Current Size (cm) - Depth 0.4 0.3 -Total Square Cm 39.9 39.0 -Date of Last Picture (Recall this 06/01/22 06/15/22 field) -Photo Taken Yes Yes -Epithelialization None Present None Present -Tunneling No No -Undermining/Tunneling No No -Circular Undermining No No -Exudate Amt Medium Large -Exudate Type Serosanguineous Serosanguineous -Wound Margin Thickened Thickened -Granulation Amt Large (67-100%) Medium (34-66%) -Granulation Quality Red Pale,Red -Slough/Fibrin Yes Yes -Necrosis Amt Small (1-33%) Medium (34-66%) -Necrotic Tissue Type Adherent Slough Adherent Slough -Texture (Ara-wound Skin Appearance) Assessed, Assessed, Scarring Scarring -Moisture (Ara-wound Skin Appearance) Assessed,Dry/ Assessed,Dry/ Scaly Scaly -Color (Ara-wound Skin Appearance) Assessed, Assessed, Hemosiderin Hemosiderin Staining Staining -Temperature (Ara-wound Skin No Abnormality No Abnormality Appearance) (Pt Warm) (Pt Warm) -Tenderness on Palpation (Ara-wound No No Skin Appearance) -Ulcer Cleansing Soap and Water Soap and Water -Foul Odor after Cleansing No No -Anesthetic Used 4% Lidocaine 4% Lidocaine Solution Solution #12 Medial Superior LLE -Combined with other wound No No -Current Size (cm) - Length 1.3 1.4 -Current Size (cm) - Width 0.8 0.7 -Current Size (cm) - Depth 0.1 0.1 -Total Square Cm 1.04 0.98 -Date of Last Picture (Recall this 06/01/22 06/15/22 field) -Photo Taken Yes Yes -Epithelialization Small 1-33% Small 1-33% -Tunneling No No -Undermining/Tunneling No No -Circular Undermining No No -Exudate Amt Small Small -Exudate Type Serosanguineous Serosanguineous -Wound Margin Distinct, Distinct, Outline Outline Attached Attached -Granulation Amt Large (67-100%) Large (67-100%) -Granulation Quality Red Red -Slough/Fibrin Yes Yes -Necrosis Amt Small (1-33%) Small (1-33%) -Necrotic Tissue Type Adherent Slough Adherent Slough -Texture (Ara-wound Skin Appearance) Assessed, Assessed, Scarring Scarring -Moisture (Ara-wound Skin Appearance) Assessed,Dry/ Assessed Scaly -Color (Ara-wound Skin Appearance) Assessed, Assessed Hemosiderin Staining -Temperature (Ara-wound Skin No Abnormality No Abnormality Appearance) (Pt Warm) (Pt Warm) -Tenderness on Palpation (Ara-wound No No Skin Appearance) -Ulcer Cleansing Soap and Water Soap and Water -Foul Odor after Cleansing No No -Anesthetic Used 4% Lidocaine 4% Lidocaine Solution Solution #11 Medial Inferior LLE -Combined with other wound No No -Current Size (cm) - Length 4.7 4.6 -Current Size (cm) - Width 3.3 2.5 -Current Size (cm) - Depth 0.1 0.1 -Total Square Cm 15.51 11.50 -Date of Last Picture (Recall this 06/01/22 06/15/22 field) -Photo Taken Yes Yes -Epithelialization Small 1-33% Small 1-33% -Tunneling No No -Undermining/Tunneling No No -Circular Undermining No No -Exudate Amt Medium Medium -Exudate Type Serosanguineous Serosanguineous -Wound Margin Distinct, Distinct, Outline Outline Attached Attached -Granulation Amt Large (67-100%) Large (67-100%) -Granulation Quality Red Red -Slough/Fibrin Yes Yes -Necrosis Amt Small (1-33%) Small (1-33%) -Necrotic Tissue Type Adherent Slough Adherent Slough -Texture (Ara-wound Skin Appearance) Assessed, Assessed, Scarring Scarring -Moisture (Ara-wound Skin Appearance) Assessed,Dry/ Assessed,Dry/ Scaly Scaly -Color (Ara-wound Skin Appearance) Assessed, Assessed, Hemosiderin Hemosiderin Staining Staining -Temperature (Ara-wound Skin No Abnormality No Abnormality Appearance) (Pt Warm) (Pt Warm) -Tenderness on Palpation (Ara-wound No No Skin Appearance) -Ulcer Cleansing Soap and Water Soap and Water -Foul Odor after Cleansing No No -Anesthetic Used 4% Lidocaine 4% Lidocaine Solution Solution #10 Left Medial Ankle -Combined with other wound No No -Current Size (cm) - Length 6.4 5.7 -Current Size (cm) - Width 4 3.7 -Current Size (cm) - Depth 0.3 0.2 -Total Square Cm 25.6 21.09 -Date of Last Picture (Recall this 06/01/22 06/15/22 field) -Photo Taken Yes Yes -Epithelialization None Present None Present -Tunneling No No -Undermining/Tunneling No No -Circular Undermining No No -Exudate Amt Large Large -Exudate Type Serosanguineous Serosanguineous -Wound Margin Thickened Thickened -Granulation Amt Small (1-33%) Medium (34-66%) -Granulation Quality Red Pale,Red -Slough/Fibrin Yes Yes -Necrosis Amt Large (67-100%) Medium (34-66%) -Necrotic Tissue Type Adherent Slough Adherent Slough -Texture (Ara-wound Skin Appearance) Assessed, Assessed, Scarring Scarring -Moisture (Ara-wound Skin Appearance) Assessed,Dry/ Assessed,Dry/ Scaly Scaly -Color (Ara-wound Skin Appearance) Assessed, Assessed, Hemosiderin Hemosiderin Staining Staining -Temperature (Ara-wound Skin No Abnormality No Abnormality Appearance) (Pt Warm) (Pt Warm) -Tenderness on Palpation (Ara-wound No No Skin Appearance) -Ulcer Cleansing Soap and Water Soap and Water -Foul Odor after Cleansing No No -Anesthetic Used 4% Lidocaine 4% Lidocaine Solution Solution Lower Limb Edema Present Yes Right Calf (cm) 36.5 37.4 Right Ankle (cm) 23.3 23 Left Calf (cm) 34 34.5 Left Ankle (cm) 24.7 24.6 - Nurse 2 - General Ulcer CM Notes Start: 06/01/22 08:47 Freq: Status: Active Protocol: Activity Type Activity Date Activity User E-sign Co-sign Detail Recorded Client Recorded Date Recorded By Document 06/01/22 09:16 JF Desktop 06/01/22 09:28 JF Document 06/15/22 09:24 MW [id number] 06/15/22 09:40 MW 06/01/22 06/15/22 09:16 09:24 Wound Center Nurse 2 #16 right Medial LE -Time 09:17 09:24 -Correct Patient Yes Yes -Correct Side, Site, Position Yes Yes -Correct Procedure Yes Yes -Procedure Performed Yes Yes -Type of Procedure Debridement Debridement -Clinical Debridement Subcutaneous Subcutaneous -Tissue Removed Subcutaneous Subcutaneous -Post Debridement (cm) - Length 1.2 1.0 -Post Debridement (cm) - Width 0.5 0.5 -Post Debridement (cm) - Depth 0.1 0.1 -Total Square (Post) (cm) 0.60 0.50 -Area of Debridement (cm) - Length 1.2 1.0 -Area of Debridement (cm) - Width 0.5 0.5 -Total Square (Area) (cm) 0.60 0.50 -Tunneling No No -Undermining/Tunneling No No -Circular Undermining No No -Wound/Ulcer Outcome Not Healed Not Healed -Ulcer Cleansing Rinsed/ Rinsed/ Irrigated with Irrigated with Saline Saline -Foul Odor after Cleansing No No -Bioengineered Tissue No No -Bleeding Controlled with Pressure Pressure -Treatment Response Procedure Procedure Tolerated Well Tolerated Well -Offloading No No -Debridement - Subq, 1st 20sq cm No Yes -Debridement, SubQ, ea addt'l 20sq cm 3 or part thereof #15 R Med Ankle -Time 09:17 09:26 -Correct Patient Yes Yes -Correct Side, Site, Position Yes Yes -Correct Procedure Yes Yes -Procedure Performed Yes Yes -Type of Procedure Debridement Debridement -Clinical Debridement Subcutaneous Subcutaneous -Tissue Removed Subcutaneous Subcutaneous -Post Debridement (cm) - Length 7.5 7.8 -Post Debridement (cm) - Width 4 4.4 -Post Debridement (cm) - Depth 0.3 0.3 -Total Square (Post) (cm) 30.0 34.32 -Area of Debridement (cm) - Length 7.5 7.8 -Area of Debridement (cm) - Width 4 4.4 -Total Square (Area) (cm) 30.0 34.32 -Tunneling No No -Undermining/Tunneling No No -Circular Undermining No No -Wound/Ulcer Outcome Not Healed Not Healed -Ulcer Cleansing Rinsed/ Rinsed/ Irrigated with Irrigated with Saline Saline -Foul Odor after Cleansing No No -Bioengineered Tissue No No -Bleeding Controlled with Pressure Pressure -Treatment Response Procedure Procedure Tolerated Well Tolerated Well -Offloading No No -Debridement - Subq, 1st 20sq cm No No #12 Medial Superior LLE -Time 09:17 09:26 -Correct Patient Yes Yes -Correct Side, Site, Position Yes Yes -Correct Procedure Yes Yes -Procedure Performed Yes Yes -Type of Procedure Debridement Debridement -Clinical Debridement Subcutaneous Subcutaneous -Tissue Removed Subcutaneous Subcutaneous -Post Debridement (cm) - Length 1.5 1.6 -Post Debridement (cm) - Width 1 0.9 -Post Debridement (cm) - Depth 0.1 0.1 -Total Square (Post) (cm) 1.5 1.44 -Area of Debridement (cm) - Length 1.5 1.6 -Area of Debridement (cm) - Width 1 0.9 -Total Square (Area) (cm) 1.5 1.44 -Tunneling No No -Undermining/Tunneling No No -Circular Undermining No No -Wound/Ulcer Outcome Not Healed Not Healed -Ulcer Cleansing Rinsed/ Rinsed/ Irrigated with Irrigated with Saline Saline -Foul Odor after Cleansing No No -Bioengineered Tissue No No -Bleeding Controlled with Pressure Pressure -Treatment Response Procedure Procedure Tolerated Well Tolerated Well -Offloading No No -Debridement - Subq, 1st 20sq cm No No #11 Medial Inferior LLE -Time 09:18 09:27 -Correct Patient Yes Yes -Correct Side, Site, Position Yes Yes -Correct Procedure Yes Yes -Procedure Performed Yes Yes -Type of Procedure Debridement Debridement -Clinical Debridement Subcutaneous Subcutaneous -Tissue Removed Subcutaneous Subcutaneous -Post Debridement (cm) - Length 5 4.4 -Post Debridement (cm) - Width 3.3 2.5 -Post Debridement (cm) - Depth 0.1 0.1 -Total Square (Post) (cm) 16.5 11.00 -Area of Debridement (cm) - Length 5 4.4 -Area of Debridement (cm) - Width 3.3 2.5 -Total Square (Area) (cm) 16.5 11.00 -Tunneling No No -Undermining/Tunneling No No -Circular Undermining No No -Wound/Ulcer Outcome Not Healed Not Healed -Ulcer Cleansing Rinsed/ Rinsed/ Irrigated with Irrigated with Saline Saline -Foul Odor after Cleansing No No -Bioengineered Tissue No No -Bleeding Controlled with Pressure Pressure -Treatment Response Procedure Procedure Tolerated Well Tolerated Well -Offloading No No -Debridement - Subq, 1st 20sq cm No No #10 Left Medial Ankle -Time 09:19 09:27 -Correct Patient Yes Yes -Correct Side, Site, Position Yes Yes -Correct Procedure Yes Yes -Procedure Performed Yes Yes -Type of Procedure Debridement Debridement -Clinical Debridement Subcutaneous Subcutaneous -Tissue Removed Subcutaneous Subcutaneous -Post Debridement (cm) - Length 4.5 4.5 -Post Debridement (cm) - Width 3 3.5 -Post Debridement (cm) - Depth 0.1 0.2 -Total Square (Post) (cm) 13.5 15.75 -Area of Debridement (cm) - Length 4.5 4.5 -Area of Debridement (cm) - Width 3 3.5 -Total Square (Area) (cm) 13.5 15.75 -Tunneling No No -Undermining/Tunneling No No -Circular Undermining No No -Wound/Ulcer Outcome Not Healed Not Healed -Ulcer Cleansing Rinsed/ Rinsed/ Irrigated with Irrigated with Saline Saline -Foul Odor after Cleansing No No -Bioengineered Tissue No No -Bleeding Controlled with Pressure Pressure -Treatment Response Procedure Procedure Tolerated Well Tolerated Well -Offloading No No -Debridement - Subq, 1st 20sq cm Yes No -Debridement, SubQ, ea addt'l 20sq cm 3 or part thereof Pain Scale: 0-10 Numeric Is Patient Pain Free? Yes Yes - Nurse 3 - General Ulcer D/C NN Start: 06/01/22 08:47 Freq: Status: Active Protocol: Activity Type Activity Date Activity User E-sign Co-sign Detail Recorded Client Recorded Date Recorded By Document 06/01/22 09:39 [facility] [id number] 06/01/22 09:41 BM Document 06/15/22 09:51 [facility] [id number] 06/15/22 09:52 [facility] 06/01/22 06/15/22 09:39 09:51 Wound Care Nurse 3 #16 right Medial LE -Ulcer Cleansing Rinsed/ Rinsed/ Irrigated with Irrigated with Saline Saline -Foul Odor after Cleansing No No -Primary Dressing Applied Aquacel AG 4x4, Other Other -Other Dressing kerramax, aquacel ag -Primary Dressing Covered/Secured with Secured with Secured with Tape Tape -Other Covering pt to apply kerramax, abd bactroban @ home w/ next drsg chg -Aquacel AG 4x4 2 #15 R Med Ankle -Ulcer Cleansing Rinsed/ Rinsed/ Irrigated with Irrigated with Saline Saline -Foul Odor after Cleansing No No -Primary Dressing Applied Aquacel AG 4x4 -Other Dressing kerramax aquacel ag -Primary Dressing Covered/Secured with Secured with Secured with Tape Tape -Other Covering kerramax, abd -Aquacel AG 4x4 0 #12 Medial Superior LLE -Ulcer Cleansing Rinsed/ Rinsed/ Irrigated with Irrigated with Saline Saline -Foul Odor after Cleansing No No -Primary Dressing Applied Aquacel AG 4x4 -Other Dressing aquacel ag, kerramax, abd -Primary Dressing Covered/Secured with Secured with Secured with Tape Tape -Other Covering abd -Aquacel AG 4x4 0 #11 Medial Inferior LLE -Ulcer Cleansing Rinsed/ Rinsed/ Irrigated with Irrigated with Saline Saline -Foul Odor after Cleansing No No -Primary Dressing Applied Aquacel AG 4x4 -Other Dressing kerramax aquacel ag, kerramax, abd -Primary Dressing Covered/Secured with Secured with Secured with Tape Tape -Aquacel AG 4x4 0 #10 Left Medial Ankle -Ulcer Cleansing Rinsed/ Rinsed/ Irrigated with Irrigated with Saline Saline -Foul Odor after Cleansing No No -Primary Dressing Applied Aquacel AG 4x4 -Other Dressing kerramax aquacel ag, kerramax, abd -Primary Dressing Covered/Secured with Secured with Secured with Tape Tape -Aquacel AG 4x4 0 ESTELLE -Other PT APPLIED OWN pt applied own COMPRESSION compression STOCKINGS stockings Treatment Response Procedure Procedure Tolerated Well Tolerated Well Pain Scale: 0-10 Numeric Is Patient Pain Free? Yes Yes WC - Visit Discharge Discharge Condition Stable Stable Ambulatory Status Ambulatory, Ambulatory Walker Transportation Private Auto Private Auto Additional Wound Wound debrided: Right may Type of Debridement: Excisional debridement Anesthesia Used: 4% Lidocaine Solution Depth: Down to and including healthy tissue and in the subcutaneous layer Percentage of wound debrided: 100 Instrument Used: 5mm curette Tissue Removed: Slough and devitalized tissue Severity: Fat Layer Exposed Bleeding Controlled with: Pressure Patient tolerated procedure: Patient tolerated procedure well Additional Wound Wound debrided: Left medial ankle Type of Debridement: Excisional debridement Anesthesia Used: 4% Lidocaine Solution Depth: Down to and including healthy tissue Percentage of wound debrided: 100 Instrument Used: 5mm curette Tissue Removed: Slough and devitalized tissue Severity: Fat Layer Exposed Amount of bleeding with debridement: Mild Bleeding Controlled with: Pressure Patient tolerated procedure: Patient tolerated procedure well Additional Wound Wound debrided: Left lower extremity (inferior) Type of Debridement: Excisional debridement Anesthesia Used: 4% Lidocaine Solution Depth: Down to and including healthy tissue and in the subcutaneous layer Percentage of wound debrided: 100 Instrument Used: 5mm curette Tissue Removed: Slough and devitalized tissue Severity: Fat Layer Exposed Amount of bleeding with debridement: Mild Bleeding Controlled with: Pressure Patient tolerated procedure: Patient tolerated procedure well Additional Wound Wound debrided: Left lower extremity (superior) Type of Debridement: Excisional debridement Anesthesia Used: 4% Lidocaine Solution Depth: Down to and including healthy tissue and in the subcutaneous layer Percentage of wound debrided: 100 Instrument Used: 5mm curette Tissue Removed: Slough and devitalized tissue Severity: Fat Layer Exposed Amount of bleeding with debridement: Mild Bleeding Controlled with: Pressure Patient tolerated procedure: Patient tolerated procedure well Assessment/Plan Assessment/Plan (1) Ulcer of left lower extremity with fat layer exposed: CODE(S): L97.922 - Non-pressure chronic ulcer of unspecified part of left lower leg with fat layer exposed (2) Ulcer of right lower extremity with fat layer exposed: CODE(S): L97.912 - Non-pressure chronic ulcer of unspecified part of right lower leg with fat layer exposed (3) PVD (peripheral vascular disease): CODE(S): I73.9 - Peripheral vascular disease, unspecified (4) Chronic venous insufficiency: CODE(S): I87.2 - Venous insufficiency (chronic) (peripheral) (5) Delayed wound healing: CODE(S): T14.8XXD - Other injury of unspecified body region, subsequent encounter PLAN: Plan Debridement done as documented above, procedure was well-tolerated. Patient would like antibiotics. Right lower extremity ulcers do not look clinically infected. As above, he states that the drainage has reduced. Repeat culture taken, will review. Has a procedure with Dr. Doty on the sixth, established with a new vascular surgeon. Continue Aquacel and care max to all other ulcers. Continue mupirocin ointment as well. Continue use of compression stockings, leg elevation and exercise. Increased protein intake, protein supplements, zinc and vitamin C also recommended. Continue multivitamins. We have also discussed the possibility for Plastic surgery referral for graft closure. His questions were answered and was advised to call with any further questions or concerns. Follow-up in 2 weeks per patient preference. This note was generated with [employer] dictation software. It may contain incorrect words, spelling, and punctuation that were not noted in checking the note before signing.
== END 2022-06-28 23:59 | disposition home or self-care (01) ==
LOC: WC 09:00
PROVIDERS: Visit Provider Internal Medicine
DX: I73.9 Peripheral vascular disease, unspecified (principal); L97.812 Non-pressure chronic ulcer of other part of right lower leg with fat layer exposed; L97.322 Non-pressure chronic ulcer of left ankle with fat layer exposed; L97.822 Non-pressure chronic ulcer of other part of left lower leg with fat layer exposed; I87.2 Venous insufficiency (chronic) (peripheral); R60.0 Localized edema
CPT/HCPCS: 11042; 11045; 87070; 87075; 87077; 87186; 87205

== ENCOUNTER 2022-07-27 09:00 | Outpatient (RCR) | payer BC, SELFPAY ==
[2022-06-29 00:25] VITALS: BP 161/86; PULSE 77; RESP 16; TEMP 36; O2SAT 99; BMI 31.4
[2022-06-29 09:16] VITALS: BP 152/94; PULSE 82; TEMP 36.1; BMI 31.4
--- NOTE | 2022-06-29 13:25 | PN.PCM_ITS ---
History of Present Illness Date of Service: 06/29/22 Chief Complaint: ulcers to the left lower leg History of Wound: This is a 54-year-old male presents to wound healing center with a long-standing history of chronic venous insufficiency, chronic venous hypertension, lower extremity edema, lower extremity pain, and chronic left lower extremity ulcer. The patient has previously undergone endovenous laser ablation of the left and right great saphenous vein, the small saphenous vein, the left accessory saphenous vein, and an incompetent left calf irrigation laborer vein located 15 cm proximal to the left medial malleolus. He is currently wearing graduated compression stockings which are documented to be 20-30 mmHg compression and these are thigh high. He reports great compliance with use. He is also had previous arterial work-up with no intervention recommended by letter, his vascular surgeon. He denies taking nutritional supplementation. He saw dermatology and had a biopsy of the ulcer site. He also was previously treated by infectious disease for various contaminations and infections. He is not antibiotics at this time nor does he have any redness or odor coming from the wound. He denies fever, chill, nausea, vomiting, loss of appetite. 05/18/22: Mr. Jeronimo presents with a new right lower extremity ulceration. He states that this has been present for months and he has been trying to manage it at home without any significant improvement. Opened up months ago, no known precipitating factor. Has been applying wound dressings without any significant improvement. He reports increased drainage. Denies significant pain. No chills, fever or feeling of unwell. Progress of Wound: Recently completed antibiotics which were prescribed based on culture/sensitivity. He states that pain and drainage have improved some. He states that he has been doing wound dressings as recommended. He is also following closely with vascular surgery. Objective Data Objective Data Vital Signs: Vital Signs Temp Pulse Resp BP Pulse Ox 97.0 F L 82 16 152/94 H 99 06/29/22 09:16 06/29/22 09:16 06/29/22 00:25 06/29/22 09:16 06/29/22 00:25 Body Mass Index (BMI) 31.4 Charges/Coding Procedures Integumentary 111xxx-113xx: 71978 Lakeisha subq tissue 20 sq cm/< Add On Codes: 61682 Lakeisha subq tissue add-on (x2. Additional square centimeter debrided, please refer to clinical note) Physical Exam Const alert, oriented x3 and no apparent distress General Appearance: cooperative and comfortable Orientation / Consciousness: awake HEENT normocephalic Head and Scalp: normal to inspection, normocephalic and atraumatic Face and Sinus: normal facial exam Eyes EOMs intact bilaterally Neck full ROM and supple General: normal visual inspection Resp normal respiratory effort Effort and Inspection: able to speak in complete sentences GI non-tender Extremity normal to inspection General Extremity: edema Skin Wounds: wounds noted Neuro oriented x3 and CN's II-XII intact bilaterally Psych mental status grossly normal Appearance: grossly normal Debridement Note Debridement Note Wound debrided: Right Lower Extremity ( medial ) Type of Debridement: Excisional debridement Anesthesia Used: 4% Lidocaine Solution Depth: Down to and including healthy tissue and in the subcutaneous layer Percentage of wound debrided: 100 Instrument Used: 5mm curette Tissue Removed: Slough and devitalized tissue Severity: Fat Layer Exposed Amount of bleeding with debridement: Mild Bleeding Controlled with: Pressure Patient tolerated procedure: Patient tolerated procedure well Post-Debridement Measurements and Additional Note: Post-Debridement Measurements/Treatment - Nurse 1 - General Ulcer Assessment Start: 06/29/22 09:15 Freq: Status: Active Protocol: [email or web address] Activity Type Activity Date Activity User E-sign Co-sign Detail Recorded Client Recorded Date Recorded By Document 06/29/22 09:16 REINA [id number] 06/29/22 09:22 REINA 06/29/22 09:16 - Today's Visit Information Type of service Follow-up Visit (Physician/SENIOR ANALYTICAL CHEMIST ) Arrival Mode Ambulatory Patient Identification Verified (Name & Yes ) Height and Weight Body Mass Index (BMI) 31.4 BMI Classification Obese Vital Signs Temperature (97.8 F-99.1 F) 97.0 F L Temperature Source Temporal Pulse Rate (60-100) 82 Pulse Location Monitor Blood Pressure (90/60-120/80) 152/94 H Blood Pressure Mean (mm Hg) 113 Source Monitor Position Semi-Fowlers Blood Pressure Location Right Arm History Since Last Visit- (Skip if this is Patient's initial visit) Have you changed medications since your No last visit? Any new allergies or adverse reactions No Had a fall/change in ADL's that may No increase risk of falls Signs or symptoms of abuse and/or No neglect since last visit Have you been in the hospital since your No last visit? Has dressing in place as prescribed Yes Has compression in place as prescribed N/A Has offloadiing in place as prescribed N/A Experienced any changes in pain level or No management Left Footwear Regular Shoe Right Footwear Regular Shoe Pain Scale: 0-10 Numeric Is Patient Pain Free? Yes WC - Nurse 1 - General Ulcer Measurement Start: 06/29/22 09:15 Freq: Status: Active Protocol: Activity Type Activity Date Activity User E-sign Co-sign Detail Recorded Client Recorded Date Recorded By Document 06/29/22 09:16 REINA [id number] 06/29/22 09:22 KR 06/29/22 09:16 Wound Center Nurse 1 #16 right Medial LE -Current Size (cm) - Length 6.8 -Current Size (cm) - Width 4 -Current Size (cm) - Depth 0.1 -Total Square Cm 27.2 -Exudate Amt Medium -Exudate Type Serosanguineous -Wound Margin Distinct, Outline Attached -Granulation Amt Medium (34-66%) -Granulation Quality [place] -Necrosis Amt Medium (34-66%) -Necrotic Tissue Type Adherent Slough -Texture (Ara-wound Skin Appearance) Assessed, Scarring -Moisture (Ara-wound Skin Appearance) No Abnormality, Assessed -Color (Ara-wound Skin Appearance) No Abnormality, Assessed -Temperature (Ara-wound Skin No Abnormality Appearance) (Pt Warm) -Tenderness on Palpation (Ara-wound No Skin Appearance) -Ulcer Cleansing Soap and Water -Foul Odor after Cleansing No -Anesthetic Used 4% Lidocaine Solution #15 R Med Ankle -Current Size (cm) - Length 6 -Current Size (cm) - Width 3 -Current Size (cm) - Depth 0.2 -Total Square Cm 18 -Exudate Amt Medium -Exudate Type Serosanguineous -Wound Margin Distinct, Outline Attached -Granulation Amt Medium (34-66%) -Granulation Quality [place] -Necrosis Amt Medium (34-66%) -Necrotic Tissue Type Adherent Slough -Texture (Ara-wound Skin Appearance) Assessed, Scarring -Moisture (Ara-wound Skin Appearance) No Abnormality, Assessed -Color (Ara-wound Skin Appearance) No Abnormality, Assessed -Temperature (Ara-wound Skin No Abnormality Appearance) (Pt Warm) -Tenderness on Palpation (Ara-wound No Skin Appearance) -Ulcer Cleansing Soap and Water -Foul Odor after Cleansing No -Anesthetic Used 4% Lidocaine Solution #12 Medial Superior LLE -Current Size (cm) - Length 4 -Current Size (cm) - Width 2.5 -Current Size (cm) - Depth 0.2 -Total Square Cm 10.0 -Exudate Amt Medium -Exudate Type Serosanguineous -Wound Margin Distinct, Outline Attached -Granulation Amt Medium (34-66%) -Granulation Quality [place] -Necrosis Amt Medium (34-66%) -Necrotic Tissue Type Adherent Slough -Texture (Ara-wound Skin Appearance) Assessed, Scarring -Moisture (Ara-wound Skin Appearance) No Abnormality, Assessed -Color (Ara-wound Skin Appearance) No Abnormality, Assessed -Temperature (Ara-wound Skin No Abnormality Appearance) (Pt Warm) -Tenderness on Palpation (Ara-wound No Skin Appearance) -Ulcer Cleansing Soap and Water -Anesthetic Used 5% Lidocaine Gel #11 Medial Inferior LLE -Current Size (cm) - Length 1 -Current Size (cm) - Width 0.5 -Current Size (cm) - Depth 0.2 -Total Square Cm 0.5 -Exudate Amt Medium -Exudate Type Serosanguineous -Wound Margin Distinct, Outline Attached -Granulation Amt Medium (34-66%) -Granulation Quality Pale -Necrosis Amt Medium (34-66%) -Necrotic Tissue Type Adherent Slough -Texture (Ara-wound Skin Appearance) Assessed, Scarring -Moisture (Ara-wound Skin Appearance) No Abnormality, Assessed -Color (Ara-wound Skin Appearance) No Abnormality, Assessed -Temperature (Ara-wound Skin No Abnormality Appearance) (Pt Warm) -Tenderness on Palpation (Ara-wound No Skin Appearance) -Ulcer Cleansing Soap and Water -Foul Odor after Cleansing No -Anesthetic Used 5% Lidocaine Gel #10 Left Medial Ankle -Current Size (cm) - Length 5.5 -Current Size (cm) - Width 3 -Current Size (cm) - Depth 0.2 -Total Square Cm 16.5 -Exudate Amt Medium -Exudate Type Serosanguineous -Wound Margin Distinct, Outline Attached -Granulation Amt Medium (34-66%) -Granulation Quality [place] -Necrosis Amt Medium (34-66%) -Necrotic Tissue Type Adherent Slough -Texture (Ara-wound Skin Appearance) Assessed, Scarring -Moisture (Ara-wound Skin Appearance) No Abnormality, Assessed -Color (Ara-wound Skin Appearance) No Abnormality, Assessed -Temperature (Ara-wound Skin No Abnormality Appearance) (Pt Warm) -Tenderness on Palpation (Ara-wound No Skin Appearance) -Ulcer Cleansing Soap and Water -Foul Odor after Cleansing No -Anesthetic Used 4% Lidocaine Solution WC - Nurse 2 - General Ulcer CM Notes Start: 06/29/22 09:15 Freq: Status: Active Protocol: Activity Type Activity Date Activity User E-sign Co-sign Detail Recorded Client Recorded Date Recorded By Document 06/29/22 09:52 MW [id number] 06/29/22 10:07 MW 06/29/22 09:52 Wound Center Nurse 2 #16 right Medial LE -Time 09:52 -Correct Patient Yes -Correct Side, Site, Position Yes -Correct Procedure Yes -Procedure Performed No -Post Debridement (cm) - Length 0.1 -Post Debridement (cm) - Width 0.1 -Post Debridement (cm) - Depth 0.1 -Total Square (Post) (cm) 0.01 -Tunneling No -Undermining/Tunneling No -Circular Undermining No -Wound/Ulcer Outcome Not Healed -Ulcer Cleansing Rinsed/ Irrigated with Saline -Foul Odor after Cleansing No -Bioengineered Tissue No #15 R Med Ankle -Time 09:53 -Correct Patient Yes -Correct Side, Site, Position Yes -Correct Procedure Yes -Procedure Performed Yes -Type of Procedure Debridement -Clinical Debridement Subcutaneous -Tissue Removed Subcutaneous -Post Debridement (cm) - Length 7.0 -Post Debridement (cm) - Width 3.5 -Post Debridement (cm) - Depth 0.3 -Total Square (Post) (cm) 24.50 -Area of Debridement (cm) - Length 7.0 -Area of Debridement (cm) - Width 3.5 -Total Square (Area) (cm) 24.50 -Tunneling No -Undermining/Tunneling No -Circular Undermining No -Wound/Ulcer Outcome Not Healed -Ulcer Cleansing Rinsed/ Irrigated with Saline -Foul Odor after Cleansing No -Bioengineered Tissue No -Bleeding Controlled with Pressure -Treatment Response Procedure Tolerated Well -Offloading No -Debridement - Subq, 1st 20sq cm No -Debridement, SubQ, ea addt'l 20sq cm 1 or part thereof #12 Medial Superior LLE -Time 09:53 -Correct Patient Yes -Correct Side, Site, Position Yes -Correct Procedure Yes -Procedure Performed Yes -Type of Procedure Debridement -Clinical Debridement Subcutaneous -Tissue Removed Subcutaneous -Post Debridement (cm) - Length 1.3 -Post Debridement (cm) - Width 0.7 -Post Debridement (cm) - Depth 0.1 -Total Square (Post) (cm) 0.91 -Area of Debridement (cm) - Length 1.3 -Area of Debridement (cm) - Width 0.7 -Total Square (Area) (cm) 0.91 -Tunneling No -Undermining/Tunneling No -Circular Undermining No -Wound/Ulcer Outcome Not Healed -Ulcer Cleansing Rinsed/ Irrigated with Saline -Foul Odor after Cleansing No -Bioengineered Tissue No -Bleeding Controlled with Pressure -Treatment Response Procedure Tolerated Well -Offloading No -Debridement - Subq, 1st 20sq cm No #11 Medial Inferior LLE -Time 09:53 -Correct Patient Yes -Correct Side, Site, Position Yes -Correct Procedure Yes -Procedure Performed Yes -Type of Procedure Debridement -Clinical Debridement Subcutaneous -Tissue Removed Subcutaneous -Post Debridement (cm) - Length 4.4 -Post Debridement (cm) - Width 2.4 -Post Debridement (cm) - Depth 0.1 -Total Square (Post) (cm) 10.56 -Area of Debridement (cm) - Length 4.4 -Area of Debridement (cm) - Width 2.4 -Total Square (Area) (cm) 10.56 -Tunneling No -Undermining/Tunneling No -Circular Undermining No -Wound/Ulcer Outcome Not Healed -Ulcer Cleansing Rinsed/ Irrigated with Saline -Foul Odor after Cleansing No -Bioengineered Tissue No -Bleeding Controlled with Pressure -Treatment Response Procedure Tolerated Well -Offloading No -Debridement - Subq, 1st 20sq cm No #10 Left Medial Ankle -Time 09:54 -Correct Patient Yes -Correct Side, Site, Position Yes -Correct Procedure Yes -Procedure Performed Yes -Type of Procedure Debridement -Clinical Debridement Subcutaneous -Tissue Removed Subcutaneous -Post Debridement (cm) - Length 5.0 -Post Debridement (cm) - Width 3.5 -Post Debridement (cm) - Depth 0.2 -Total Square (Post) (cm) 17.50 -Area of Debridement (cm) - Length 5.0 -Area of Debridement (cm) - Width 3.5 -Total Square (Area) (cm) 17.50 -Tunneling No -Undermining/Tunneling No -Circular Undermining No -Wound/Ulcer Outcome Not Healed -Ulcer Cleansing Rinsed/ Irrigated with Saline -Foul Odor after Cleansing No -Bioengineered Tissue No -Bleeding Controlled with Pressure -Treatment Response Procedure Tolerated Well -Offloading No -Debridement - Subq, 1st 20sq cm No Pain Scale: 0-10 Numeric Is Patient Pain Free? Yes WC - Nurse 3 - General Ulcer D/C NN Start: 06/29/22 09:15 Freq: Status: Active Protocol: Activity Type Activity Date Activity User E-sign Co-sign Detail Recorded Client Recorded Date Recorded By Document 06/29/22 13:21 REINA [id number] 06/29/22 13:21 REINA 06/29/22 13:21 Wound Care Nurse 3 #16 right Medial LE -Ulcer Cleansing Rinsed/ Irrigated with Saline -Primary Dressing Applied Aquacel AG 4x4 -Primary Dressing Covered/Secured with Dry Gauze, Secured with Tape -Aquacel AG 4x4 2 Pain Scale: 0-10 Numeric Is Patient Pain Free? Yes WC - Visit Discharge Discharge Condition Stable Ambulatory Status Ambulatory Transportation Private Auto Additional Wound Wound debrided: Left Medial Ankle Type of Debridement: Excisional debridement Anesthesia Used: 4% Lidocaine Solution Depth: Down to and including healthy tissue and in the subcutaneous layer Percentage of wound debrided: 100 Instrument Used: 5mm curette Tissue Removed: Slough and devitalized tissue Severity: Fat Layer Exposed Amount of bleeding with debridement: Mild Bleeding Controlled with: Pressure Patient tolerated procedure: Patient tolerated procedure well Additional Wound Wound debrided: Left Lower extremity ( Inferior ) Type of Debridement: Excisional debridement Anesthesia Used: 4% Lidocaine Solution Depth: Down to and including healthy tissue and in the subcutaneous layer Percentage of wound debrided: 100 Instrument Used: 5mm curette Tissue Removed: Slough and devitalized tissue Severity: Fat Layer Exposed Amount of bleeding with debridement: Mild Bleeding Controlled with: Pressure Patient tolerated procedure: Patient tolerated procedure well Additional Wound Wound debrided: Left Lower Extremity ( Superior ) Type of Debridement: Excisional debridement Anesthesia Used: 4% Lidocaine Solution Depth: Down to and including healthy tissue and in the subcutaneous layer Percentage of wound debrided: 100 Instrument Used: 5mm curette Tissue Removed: Slough and devitalized tissue Severity: Fat Layer Exposed Amount of bleeding with debridement: Mild Bleeding Controlled with: Pressure Patient tolerated procedure: Patient tolerated procedure well Assessment/Plan Assessment/Plan (1) Ulcer of left lower extremity with fat layer exposed: CODE(S): L97.922 - Non-pressure chronic ulcer of unspecified part of left lower leg with fat layer exposed (2) Ulcer of right lower extremity with fat layer exposed: CODE(S): L97.912 - Non-pressure chronic ulcer of unspecified part of right lower leg with fat layer exposed (3) PVD (peripheral vascular disease): CODE(S): I73.9 - Peripheral vascular disease, unspecified (4) Chronic venous insufficiency: CODE(S): I87.2 - Venous insufficiency (chronic) (peripheral) (5) Delayed wound healing: CODE(S): T14.8XXD - Other injury of unspecified body region, subsequent encounter PLAN: Plan Debridement done as documented above, procedure was well-tolerated. Some improvement noted. Continue Aquacel and care max to all other ulcers. Continue mupirocin ointment as well. Continue use of compression stockings, leg elevation and exercise. Has an appointment/Procedure with Vascular Surgery on Sunday. Increased protein intake, protein supplements, zinc and vitamin C also recommended. Continue multivitamins. We have also discussed the possibility for Plastic surgery referral for graft closure. His questions were answered and was advised to call with any further questions or concerns. Follow-up in 2 weeks per patient preference. This note was generated with [employer] dictation software. It may contain incorrect words, spelling, and punctuation that were not noted in checking the note before signing.
[2022-07-13 09:01] VITALS: BP 170/80; PULSE 76; RESP 18; TEMP 35.9; BMI 31.4
--- NOTE | 2022-07-13 10:34 | PCM.WC.PN ---
History of Present Illness Date of Service: 07/13/22 Chief Complaint: ulcers to the left lower leg History of Wound: This is a 54-year-old male presents to wound healing center with a long-standing history of chronic venous insufficiency, chronic venous hypertension, lower extremity edema, lower extremity pain, and chronic left lower extremity ulcer. The patient has previously undergone endovenous laser ablation of the left and right great saphenous vein, the small saphenous vein, the left accessory saphenous vein, and an incompetent left calf waterproof coating machine tender vein located 15 cm proximal to the left medial malleolus. He is currently wearing graduated compression stockings which are documented to be 20-30 mmHg compression and these are thigh high. He reports great compliance with use. He is also had previous arterial work-up with no intervention recommended by letter, his vascular surgeon. He denies taking nutritional supplementation. He saw dermatology and had a biopsy of the ulcer site. He also was previously treated by infectious disease for various contaminations and infections. He is not antibiotics at this time nor does he have any redness or odor coming from the wound. He denies fever, chill, nausea, vomiting, loss of appetite. 05/18/22: Mr. Jeronimo presents with a new right lower extremity ulceration. He states that this has been present for months and he has been trying to manage it at home without any significant improvement. Opened up months ago, no known precipitating factor. Has been applying wound dressings without any significant improvement. He reports increased drainage. Denies significant pain. No chills, fever or feeling of unwell. Progress of Wound: No new concerns at this time. Some improvement noted. Doing dressing changes daily. Planned vascular procedure not done due to pending insurance approval. Objective Data Objective Data Vital Signs: Vital Signs Temp Pulse Resp BP Pulse Ox 96.7 F L 76 18 170/80 H 99 07/13/22 09:01 07/13/22 09:01 07/13/22 09:01 07/13/22 09:06/29/22 00:25 Body Mass Index (BMI) 31.4 Charges/Coding Procedures Integumentary 111xxx-113xx: 73126 Lakeisha subq tissue 20 sq cm/< Add On Codes: 25784 Lakeisha subq tissue add-on (x2 additional square centimeter debrided, please refer to clinical note.) Physical Exam Const alert, oriented x3 and no apparent distress General Appearance: cooperative and comfortable Orientation / Consciousness: awake HEENT normocephalic Head and Scalp: normal to inspection, normocephalic and atraumatic Face and Sinus: normal facial exam Eyes EOMs intact bilaterally Neck full ROM and supple General: normal visual inspection Resp normal respiratory effort Effort and Inspection: able to speak in complete sentences GI non-tender Extremity normal to inspection General Extremity: edema Skin Wounds: wounds noted Neuro oriented x3 and CN's II-XII intact bilaterally Psych mental status grossly normal Appearance: grossly normal Debridement Note Debridement Note Wound debrided: Right lower extremity Type of Debridement: Excisional debridement Anesthesia Used: 4% Lidocaine Solution Depth: Down to and including healthy tissue and in the subcutaneous layer Percentage of wound debrided: 100 Instrument Used: 5mm curette Tissue Removed: Slough and devitalized tissue Severity: Fat Layer Exposed Amount of bleeding with debridement: Mild Bleeding Controlled with: Pressure Patient tolerated procedure: Patient tolerated procedure well Post-Debridement Measurements and Additional Note: Post-Debridement Measurements/Treatment - Nurse 1 - General Ulcer Assessment Start: 06/29/22 09:15 Freq: Status: Active Protocol: KIMBERLY.MEHDI Activity Type Activity Date Activity User E-sign Co-sign Detail Recorded Client Recorded Date Recorded By Document 06/29/22 09:16 KR [id number] 06/29/22 09:22 KR Document 07/13/22 09:01 DL [id number] 07/13/22 09:12 DL 06/29/22 07/13/22 09:16 09:01 - Today's Visit Information Type of service Follow-up Visit Follow-up Visit (Physician/RAILWAY SIGNAL ELECTRICIAN (Physician/RAILWAY SIGNAL ELECTRICIAN ) ) Arrival Mode Ambulatory Ambulatory Transfer Assistance None Patient Identification Verified (Name & Yes Yes ) Patient Requires Transmission-Based No Precautions Height and Weight Body Mass Index (BMI) 31.4 31.4 BMI Classification Obese Obese Vital Signs Temperature (97.8 F-99.1 F) 97.0 F L 96.7 F L Temperature Source Temporal Temporal Pulse Rate (60-100) 82 76 Pulse Location Monitor Monitor Respiratory Rate (12-18) 18 Respiratory rate source Observation Blood Pressure (90/60-120/80) 152/94 H 170/80 H Blood Pressure Mean (mm Hg) 113 110 Source Monitor Monitor Position Semi-Fowlers Blood Pressure Location Right Arm History Since Last Visit- (Skip if this is Patient's initial visit) Have you changed medications since your No No last visit? Any new allergies or adverse reactions No No Had a fall/change in ADL's that may No No increase risk of falls Signs or symptoms of abuse and/or No No neglect since last visit Have you been in the hospital since your No No last visit? Has dressing in place as prescribed Yes Yes Has compression in place as prescribed N/A Yes Has offloadiing in place as prescribed N/A N/A Experienced any changes in pain level or No No management Left Footwear Regular Shoe Slipper Right Footwear Regular Shoe Regular Shoe Pain Scale: 0-10 Numeric Is Patient Pain Free? Yes Yes WC - Nurse 1 - General Ulcer Measurement Start: 06/29/22 09:15 Freq: Status: Active Protocol: Activity Type Activity Date Activity User E-sign Co-sign Detail Recorded Client Recorded Date Recorded By Document 06/29/22 09:16 KR [id number] 06/29/22 09:22 KR Document 07/13/22 09:01 DL [id number] 07/13/22 09:12 DL 06/29/22 07/13/22 09:16 09:01 Wound Center Nurse 1 #16 right Medial LE -Current Size (cm) - Length 6.8 0.1 -Current Size (cm) - Width 4 0.1 -Current Size (cm) - Depth 0.1 0.1 -Total Square Cm 27.2 0.01 -Photo Taken No -Exudate Amt Medium Small -Exudate Type Serosanguineous Serosanguineous -Wound Margin Distinct, Distinct, Outline Outline Attached Attached -Granulation Amt Medium (34-66%) None Present (0 %) -Granulation Quality [place] -Necrosis Amt Medium (34-66%) Small (1-33%) -Necrotic Tissue Type Adherent Slough Eschar -Structure Exposed N/A -Texture (Ara-wound Skin Appearance) Assessed, Scarring Scarring -Moisture (Ara-wound Skin Appearance) No Abnormality, Dry/Scaly Assessed -Color (Ara-wound Skin Appearance) No Abnormality, Hemosiderin Assessed Staining -Temperature (Ara-wound Skin No Abnormality No Abnormality Appearance) (Pt Warm) (Pt Warm) -Tenderness on Palpation (Ara-wound No No Skin Appearance) -Ulcer Cleansing Soap and Water Soap and Water -Foul Odor after Cleansing No No -Anesthetic Used 4% Lidocaine 4% Lidocaine Solution Solution #15 R Med Ankle -Current Size (cm) - Length 6 7.1 -Current Size (cm) - Width 3 4.2 -Current Size (cm) - Depth 0.2 0.2 -Total Square Cm 18 29.82 -Photo Taken No -Exudate Amt Medium Medium -Exudate Type Serosanguineous Serosanguineous -Wound Margin Distinct, Distinct, Outline Outline Attached Attached -Granulation Amt Medium (34-66%) Medium (34-66%) -Granulation Quality [place] Red -Necrosis Amt Medium (34-66%) -Necrotic Tissue Type Adherent Slough Adherent Slough -Structure Exposed N/A -Texture (Ara-wound Skin Appearance) Assessed, Scarring Scarring -Moisture (Ara-wound Skin Appearance) No Abnormality, Dry/Scaly Assessed -Color (Ara-wound Skin Appearance) No Abnormality, Hemosiderin Assessed Staining -Temperature (Ara-wound Skin No Abnormality No Abnormality Appearance) (Pt Warm) (Pt Warm) -Tenderness on Palpation (Ara-wound No Skin Appearance) -Ulcer Cleansing Soap and Water Soap and Water -Foul Odor after Cleansing No No -Anesthetic Used 4% Lidocaine 4% Lidocaine Solution Solution #12 Medial Superior LLE -Current Size (cm) - Length 4 1 -Current Size (cm) - Width 2.5 0.4 -Current Size (cm) - Depth 0.2 0.1 -Total Square Cm 10.0 0.4 -Photo Taken No -Exudate Amt Medium Medium -Exudate Type Serosanguineous Serosanguineous -Wound Margin Distinct, Distinct, Outline Outline Attached Attached -Granulation Amt Medium (34-66%) Large (67-100%) -Granulation Quality [place] Red -Necrosis Amt Medium (34-66%) Small (1-33%) -Necrotic Tissue Type Adherent Slough Adherent Slough -Structure Exposed N/A -Texture (Ara-wound Skin Appearance) Assessed, Scarring Scarring -Moisture (Ara-wound Skin Appearance) No Abnormality, Dry/Scaly Assessed -Color (Ara-wound Skin Appearance) No Abnormality, Hemosiderin Assessed Staining -Temperature (Ara-wound Skin No Abnormality No Abnormality Appearance) (Pt Warm) (Pt Warm) -Tenderness on Palpation (Ara-wound No No Skin Appearance) -Ulcer Cleansing Soap and Water Soap and Water -Foul Odor after Cleansing No -Anesthetic Used 5% Lidocaine 4% Lidocaine Gel Solution #11 Medial Inferior LLE -Current Size (cm) - Length 1 4 -Current Size (cm) - Width 0.5 2.9 -Current Size (cm) - Depth 0.2 0.1 -Total Square Cm 0.5 11.6 -Photo Taken No -Exudate Amt Medium Medium -Exudate Type Serosanguineous Serosanguineous -Wound Margin Distinct, Distinct, Outline Outline Attached Attached -Granulation Amt Medium (34-66%) Medium (34-66%) -Granulation Quality Pale Red -Necrosis Amt Medium (34-66%) Medium (34-66%) -Necrotic Tissue Type Adherent Slough Adherent Slough -Structure Exposed N/A -Texture (Ara-wound Skin Appearance) Assessed, Scarring Scarring -Moisture (Ara-wound Skin Appearance) No Abnormality, Dry/Scaly Assessed -Color (Ara-wound Skin Appearance) No Abnormality, Hemosiderin Assessed Staining -Temperature (Ara-wound Skin No Abnormality No Abnormality Appearance) (Pt Warm) (Pt Warm) -Tenderness on Palpation (Ara-wound No Skin Appearance) -Ulcer Cleansing Soap and Water Soap and Water -Foul Odor after Cleansing No No -Anesthetic Used 5% Lidocaine 4% Lidocaine Gel Solution #10 Left Medial Ankle -Current Size (cm) - Length 5.5 5.2 -Current Size (cm) - Width 3 3.3 -Current Size (cm) - Depth 0.2 0.2 -Total Square Cm 16.5 17.16 -Photo Taken No -Exudate Amt Medium Medium -Exudate Type Serosanguineous Serosanguineous -Wound Margin Distinct, Distinct, Outline Outline Attached Attached -Granulation Amt Medium (34-66%) Medium (34-66%) -Granulation Quality [place] Red -Necrosis Amt Medium (34-66%) Medium (34-66%) -Necrotic Tissue Type Adherent Slough Adherent Slough -Structure Exposed N/A -Texture (Ara-wound Skin Appearance) Assessed, Scarring Scarring -Moisture (Ara-wound Skin Appearance) No Abnormality, Dry/Scaly Assessed -Color (Ara-wound Skin Appearance) No Abnormality, Hemosiderin Assessed Staining -Temperature (Ara-wound Skin No Abnormality No Abnormality Appearance) (Pt Warm) (Pt Warm) -Tenderness on Palpation (Ara-wound No No Skin Appearance) -Ulcer Cleansing Soap and Water Soap and Water -Foul Odor after Cleansing No No -Anesthetic Used 4% Lidocaine 4% Lidocaine Solution Solution Right Calf (cm) 36.6 Right Ankle (cm) 22 Left Calf (cm) 35.2 Left Ankle (cm) 22.6 WC - Nurse 2 - General Ulcer CM Notes Start: 06/29/22 09:15 Freq: Status: Active Protocol: Activity Type Activity Date Activity User E-sign Co-sign Detail Recorded Client Recorded Date Recorded By Document 06/29/22 09:52 MW [id number] 06/29/22 10:07 MW Edit Result 06/29/22 09:52 MW (1) [id number] 06/30/22 06:46 PL Document 07/13/22 09:42 MW [id number] 07/13/22 09:54 MW (1) #15 R Med Ankle - Debridement - Subq, 1st 20sq cm No => Yes - Debridement, SubQ, ea addt'l 20sq cm 1 => 2 or part thereof 06/29/22 07/13/22 09:52 09:42 Wound Center Nurse 2 #16 right Medial LE -Time 09:52 09:43 -Correct Patient Yes Yes -Correct Side, Site, Position Yes Yes -Correct Procedure Yes Yes -Procedure Performed No No -Post Debridement (cm) - Length 0.1 0 -Post Debridement (cm) - Width 0.1 0 -Post Debridement (cm) - Depth 0.1 -Total Square (Post) (cm) 0.01 0 -Tunneling No No -Undermining/Tunneling No No -Circular Undermining No No -Wound/Ulcer Outcome Not Healed Healed- Epithelialized -Ulcer Cleansing Rinsed/ Irrigated with Saline -Foul Odor after Cleansing No -Bioengineered Tissue No #15 R Med Ankle -Time 09:53 09:44 -Correct Patient Yes Yes -Correct Side, Site, Position Yes Yes -Correct Procedure Yes Yes -Procedure Performed Yes Yes -Type of Procedure Debridement Debridement -Clinical Debridement Subcutaneous Subcutaneous -Tissue Removed Subcutaneous Subcutaneous -Post Debridement (cm) - Length 7.0 7.0 -Post Debridement (cm) - Width 3.5 3.0 -Post Debridement (cm) - Depth 0.3 0.2 -Total Square (Post) (cm) 24.50 21.00 -Area of Debridement (cm) - Length 7.0 7.0 -Area of Debridement (cm) - Width 3.5 3.0 -Total Square (Area) (cm) 24.50 21.00 -Tunneling No No -Undermining/Tunneling No No -Circular Undermining No No -Wound/Ulcer Outcome Not Healed Not Healed -Ulcer Cleansing Rinsed/ Rinsed/ Irrigated with Irrigated with Saline Saline -Foul Odor after Cleansing No No -Bioengineered Tissue No No -Bleeding Controlled with Pressure Pressure -Treatment Response Procedure Procedure Tolerated Well Tolerated Well -Offloading No No -Debridement - Subq, 1st 20sq cm Yes Yes -Debridement, SubQ, ea addt'l 20sq cm 2 2 or part thereof #12 Medial Superior LLE -Time : 09:44 -Correct Patient Yes Yes -Correct Side, Site, Position Yes Yes -Correct Procedure Yes Yes -Procedure Performed Yes Yes -Type of Procedure Debridement Debridement -Clinical Debridement Subcutaneous Subcutaneous -Tissue Removed Subcutaneous Subcutaneous -Post Debridement (cm) - Length 1.3 1.0 -Post Debridement (cm) - Width 0.7 0.3 -Post Debridement (cm) - Depth 0.1 0.1 -Total Square (Post) (cm) 0.91 0.30 -Area of Debridement (cm) - Length 1.3 1.0 -Area of Debridement (cm) - Width 0.7 0.3 -Total Square (Area) (cm) 0.91 0.30 -Tunneling No No -Undermining/Tunneling No No -Circular Undermining No No -Wound/Ulcer Outcome Not Healed Not Healed -Ulcer Cleansing Rinsed/ Rinsed/ Irrigated with Irrigated with Saline Saline -Foul Odor after Cleansing No No -Bioengineered Tissue No No -Bleeding Controlled with Pressure Pressure -Treatment Response Procedure Procedure Tolerated Well Tolerated Well -Offloading No No -Debridement - Subq, 1st 20sq cm No No #11 Medial Inferior LLE -Time 09: 09:45 -Correct Patient Yes Yes -Correct Side, Site, Position Yes Yes -Correct Procedure Yes Yes -Procedure Performed Yes Yes -Type of Procedure Debridement Debridement -Clinical Debridement Subcutaneous Subcutaneous -Tissue Removed Subcutaneous Subcutaneous -Post Debridement (cm) - Length 4.4 4.0 -Post Debridement (cm) - Width 2.4 2.2 -Post Debridement (cm) - Depth 0.1 0.1 -Total Square (Post) (cm) 10.56 8.80 -Area of Debridement (cm) - Length 4.4 4.0 -Area of Debridement (cm) - Width 2.4 2.2 -Total Square (Area) (cm) 10.56 8.80 -Tunneling No No -Undermining/Tunneling No No -Circular Undermining No No -Wound/Ulcer Outcome Not Healed Not Healed -Ulcer Cleansing Rinsed/ Rinsed/ Irrigated with Irrigated with Saline Saline -Foul Odor after Cleansing No No -Bioengineered Tissue No No -Bleeding Controlled with Pressure Pressure -Treatment Response Procedure Procedure Tolerated Well Tolerated Well -Offloading No No -Debridement - Subq, 1st 20sq cm No No #10 Left Medial Ankle -Time 09:54 09:45 -Correct Patient Yes Yes -Correct Side, Site, Position Yes Yes -Correct Procedure Yes Yes -Procedure Performed Yes Yes -Type of Procedure Debridement Debridement -Clinical Debridement Subcutaneous Subcutaneous -Tissue Removed Subcutaneous Subcutaneous -Post Debridement (cm) - Length 5.0 4.4 -Post Debridement (cm) - Width 3.5 3.3 -Post Debridement (cm) - Depth 0.2 0.2 -Total Square (Post) (cm) 17.50 14.52 -Area of Debridement (cm) - Length 5.0 4.4 -Area of Debridement (cm) - Width 3.5 3.3 -Total Square (Area) (cm) 17.50 14.52 -Tunneling No No -Undermining/Tunneling No No -Circular Undermining No No -Wound/Ulcer Outcome Not Healed Not Healed -Ulcer Cleansing Rinsed/ Rinsed/ Irrigated with Irrigated with Saline Saline -Foul Odor after Cleansing No No -Bioengineered Tissue No No -Bleeding Controlled with Pressure Pressure -Treatment Response Procedure Procedure Tolerated Well Tolerated Well -Offloading No No -Debridement - Subq, 1st 20sq cm No No Pain Scale: 0-10 Numeric Is Patient Pain Free? Yes Yes WC - Nurse 3 - General Ulcer D/C NN Start: 09/01/22 09:15 Freq: Status: Active Protocol: Activity Type Activity Date Activity User E-sign Co-sign Detail Recorded Client Recorded Date Recorded By Document 06/29/22 13:21 REINA [id number] 06/29/22 13:21 KR Document 07/13/22 10:08 TIFFANY [id number] 07/13/22 10:12 DL 06/29/22 07/13/22 13:21 10:08 Wound Care Nurse 3 #16 right Medial LE -Ulcer Cleansing Rinsed/ Irrigated with Saline -Primary Dressing Applied Aquacel AG 4x4 -Primary Dressing Covered/Secured with Dry Gauze, Secured with Tape -Aquacel AG 4x4 2 #15 R Med Ankle -Primary Dressing Applied Aquacel Extra -Other Dressing Bactroban, Kerramax -Other Covering ABD -Aquacel Extra 1 #12 Medial Superior LLE -Ulcer Cleansing Soap and Water -Foul Odor after Cleansing No -Other Dressing Bactroban/ kerramax/ aquacel Ex -Primary Dressing Covered/Secured with Secured with Tape -Other Covering ABD #11 Medial Inferior LLE -Ulcer Cleansing Soap and Water -Foul Odor after Cleansing No -Other Dressing bactroban. kerrtamax/ aquacel Ex -Other Covering ABD #10 Left Medial Ankle -Ulcer Cleansing Soap and Water -Foul Odor after Cleansing No -Other Dressing Bactroban/ Keerramax/ Aquacel Ex -Other Covering ABD Left -Stockings Yes Right -Stockings Yes Treatment Response Procedure Tolerated Well Pain Scale: 0-10 Numeric Is Patient Pain Free? Yes Yes WC - Visit Discharge Discharge Condition Stable Stable Ambulatory Status Ambulatory Ambulatory Transportation Private Auto Private Auto Additional Wound Wound debrided: Left medial ankle Type of Debridement: Excisional debridement Anesthesia Used: 4% Lidocaine Solution Depth: Down to and including healthy tissue and in the subcutaneous layer Percentage of wound debrided: 100 Instrument Used: 5mm curette Tissue Removed: Slough and devitalized tissue Severity: Fat Layer Exposed Amount of bleeding with debridement: Mild Bleeding Controlled with: Pressure Patient tolerated procedure: Patient tolerated procedure well Additional Wound Wound debrided: Left lower extremity (inferior) Type of Debridement: Excisional debridement Anesthesia Used: 4% Lidocaine Solution Depth: Down to and including healthy tissue and in the subcutaneous layer Percentage of wound debrided: 100 Instrument Used: 5mm curette Tissue Removed: Slough and devitalized tissue Severity: Fat Layer Exposed Amount of bleeding with debridement: Mild Bleeding Controlled with: Pressure Patient tolerated procedure: Patient tolerated procedure well Additional Wound Wound debrided: Left lower extremity (superior) Type of Debridement: Excisional debridement Anesthesia Used: 4% Lidocaine Solution Depth: Down to and including healthy tissue and in the subcutaneous layer Percentage of wound debrided: 100 Instrument Used: 5mm curette Severity: Fat Layer Exposed Amount of bleeding with debridement: Mild Bleeding Controlled with: Pressure Patient tolerated procedure: Patient tolerated procedure well Assessment/Plan Assessment/Plan (1) Ulcer of left lower extremity with fat layer exposed: CODE(S): L97.922 - Non-pressure chronic ulcer of unspecified part of left lower leg with fat layer exposed (2) Ulcer of right lower extremity with fat layer exposed: CODE(S): L97.912 - Non-pressure chronic ulcer of unspecified part of right lower leg with fat layer exposed (3) PVD (peripheral vascular disease): CODE(S): I73.9 - Peripheral vascular disease, unspecified (4) Chronic venous insufficiency: CODE(S): I87.2 - Venous insufficiency (chronic) (peripheral) (5) Delayed wound healing: CODE(S): T14.8XXD - Other injury of unspecified body region, subsequent encounter PLAN: Plan Debridement done as documented above, procedure was well-tolerated. Some improvement noted. Continue Aquacel and care max to all other ulcers. He was advised to change twice daily due to some areas of maceration on the right lower extremity. Continue mupirocin ointment as well. Continue use of compression stockings, leg elevation and exercise. Increased protein intake, protein supplements, zinc and vitamin C also recommended. Continue multivitamins. We have also discussed the possibility for Plastic surgery referral for graft closure. His questions were answered and was advised to call with any further questions or concerns. Follow-up in 2 weeks per patient preference. This note was generated with [employer] dictation software. It may contain incorrect words, spelling, and punctuation that were not noted in checking the note before signing.
[2022-07-27 09:08] VITALS: BMI 31.4
--- NOTE | 2022-07-27 10:57 | PN.PCM_ITS ---
History of Present Illness Date of Service: 07/27/22 Chief Complaint: ulcers to the left lower leg History of Wound: This is a 54-year-old male presents to wound healing center with a long-standing history of chronic venous insufficiency, chronic venous hypertension, lower extremity edema, lower extremity pain, and chronic left lower extremity ulcer. The patient has previously undergone endovenous laser ablation of the left and right great saphenous vein, the small saphenous vein, the left accessory saphenous vein, and an incompetent left calf cell attendant vein located 15 cm proximal to the left medial malleolus. He is currently wearing graduated compression stockings which are documented to be 20-30 mmHg compression and these are thigh high. He reports great compliance with use. He is also had previous arterial work-up with no intervention recommended by letter, his vascular surgeon. He denies taking nutritional supplementation. He saw dermatology and had a biopsy of the ulcer site. He also was previously treated by infectious disease for various contaminations and infections. He is not antibiotics at this time nor does he have any redness or odor coming from the wound. He denies fever, chill, nausea, vomiting, loss of appetite. 05/18/22: Mr. Jeronimo presents with a new right lower extremity ulceration. He states that this has been present for months and he has been trying to manage it at home without any significant improvement. Opened up months ago, no known precipitating factor. Has been applying wound dressings without any significant improvement. He reports increased drainage. Denies significant pain. No chills, fever or feeling of unwell. Progress of Wound: No new concerns at this time. Some improvement noted. Doing dressing changes daily. Planned vascular procedure now scheduled for Sunday. Objective Data Objective Data Vital Signs: Vital Signs Temp Pulse Resp BP Pulse Ox 96.7 F L 76 18 170/80 H 99 07/13/22 09:01 07/13/22 09:01 07/13/22 09:01 07/13/22 09:06/29/22 00:25 Body Mass Index (BMI) 31.4 Charges/Coding Procedures Integumentary 111xxx-113xx: 79470 Lakeisha subq tissue 20 sq cm/< Add On Codes: 11685 Lakeisha subq tissue add-on (x2. Additional square centimeter debrided, please refer to clinical note.) Physical Exam Const alert, oriented x3 and no apparent distress General Appearance: cooperative and comfortable Orientation / Consciousness: awake HEENT normocephalic Head and Scalp: normal to inspection, normocephalic and atraumatic Face and Sinus: normal facial exam Eyes EOMs intact bilaterally Neck full ROM and supple General: normal visual inspection Resp normal respiratory effort Effort and Inspection: able to speak in complete sentences GI non-tender Extremity normal to inspection General Extremity: edema Skin Wounds: wounds noted Neuro oriented x3 and CN's II-XII intact bilaterally Psych mental status grossly normal Appearance: grossly normal Debridement Note Debridement Note Wound debrided: Right lower extremity Type of Debridement: Excisional debridement Anesthesia Used: 4% Lidocaine Solution Depth: Down to and including healthy tissue and in the subcutaneous layer Percentage of wound debrided: 100 Instrument Used: 5mm curette Tissue Removed: Slough and devitalized tissue Severity: Fat Layer Exposed Amount of bleeding with debridement: Mild Bleeding Controlled with: Pressure Patient tolerated procedure: Patient tolerated procedure well Post-Debridement Measurements and Additional Note: Post-Debridement Measurements/Treatment - Nurse 1 - General Ulcer Assessment Start: 06/29/22 09:15 Freq: Status: Active Protocol: SHANTA Activity Type Activity Date Activity User E-sign Co-sign Detail Recorded Client Recorded Date Recorded By Document 06/29/22 09:16 KR [id number] 06/29/22 09:22 KR Document 07/13/22 09:01 DL [id number] 07/13/22 09:12 DL Document 07/27/22 09:08 PR [id number] 07/27/22 09:14 MT 06/29/22 07/13/22 07/27/22 09:16 09:01 09:08 - Today's Visit Information Type of service Follow-up Visit Follow-up Visit (Physician/INTERIOR DECORATOR PAINTING (Physician/INTERIOR DECORATOR PAINTING ) ) Arrival Mode Ambulatory Ambulatory Transfer Assistance None Patient Identification Verified (Name & Yes Yes ) Patient Requires Transmission-Based No Precautions Height and Weight Body Mass Index (BMI) 31.4 31.4 31.4 BMI Classification Obese Obese Obese Vital Signs Temperature (97.8 F-99.1 F) 97.0 F L 96.7 F L Temperature Source Temporal Temporal Pulse Rate (60-100) 82 76 Pulse Location Monitor Monitor Respiratory Rate (12-18) 18 Respiratory rate source Observation Blood Pressure (90/60-120/80) 152/94 H 170/80 H Blood Pressure Mean (mm Hg) 113 110 Source Monitor Monitor Position Semi-Fowlers Blood Pressure Location Right Arm History Since Last Visit- (Skip if this is Patient's initial visit) Have you changed medications since your No No last visit? Any new allergies or adverse reactions No No Had a fall/change in ADL's that may No No increase risk of falls Signs or symptoms of abuse and/or No No neglect since last visit Have you been in the hospital since your No No last visit? Has dressing in place as prescribed Yes Yes Has compression in place as prescribed N/A Yes Has offloadiing in place as prescribed N/A N/A Experienced any changes in pain level or No No management Left Footwear Regular Shoe Slipper Right Footwear Regular Shoe Regular Shoe Pain Scale: 0-10 Numeric Is Patient Pain Free? Yes Yes Yes WC - Nurse 1 - General Ulcer Measurement Start: 06/29/22 09:15 Freq: Status: Active Protocol: Activity Type Activity Date Activity User E-sign Co-sign Detail Recorded Client Recorded Date Recorded By Document 06/29/22 09:16 KR [id number] 06/29/22 09:22 KR Document 07/13/22 09:01 DL [id number] 07/13/22 09:12 DL Document 07/27/22 09:08 MT [id number] 07/27/22 09:14 MT 06/29/22 07/13/22 07/27/22 09:16 09:01 09:08 Wound Center Nurse 1 #16 right Medial LE -Current Size (cm) - Length 6.8 0.1 -Current Size (cm) - Width 4 0.1 -Current Size (cm) - Depth 0.1 0.1 -Total Square Cm 27.2 0.01 -Photo Taken No -Exudate Amt Medium Small -Exudate Type Serosanguineous Serosanguineous -Wound Margin Distinct, Distinct, Outline Outline Attached Attached -Granulation Amt Medium (34-66%) None Present (0 %) -Granulation Quality [place] -Necrosis Amt Medium (34-66%) Small (1-33%) -Necrotic Tissue Type Adherent Slough Eschar -Structure Exposed N/A -Texture (Ara-wound Skin Appearance) Assessed, Scarring Scarring -Moisture (Ara-wound Skin Appearance) No Abnormality, Dry/Scaly Assessed -Color (Ara-wound Skin Appearance) No Abnormality, Hemosiderin Assessed Staining -Temperature (Ara-wound Skin No Abnormality No Abnormality Appearance) (Pt Warm) (Pt Warm) -Tenderness on Palpation (Ara-wound No No Skin Appearance) -Ulcer Cleansing Soap and Water Soap and Water -Foul Odor after Cleansing No No -Anesthetic Used 4% Lidocaine 4% Lidocaine Solution Solution #15 R Med Ankle -Current Size (cm) - Length 6 7.1 6.7 -Current Size (cm) - Width 3 4.2 3.3 -Current Size (cm) - Depth 0.2 0.2 0.3 -Total Square Cm 18 29.82 22.11 -Photo Taken No -Exudate Amt Medium Medium Small -Exudate Type Serosanguineous Serosanguineous Serosanguineous -Wound Margin Distinct, Distinct, Flat & Intact Outline Outline Attached Attached -Granulation Amt Medium (34-66%) Medium (34-66%) Medium (34-66%) -Granulation Quality [place] Red Pale,[place] -Necrosis Amt Medium (34-66%) Small (1-33%) -Necrotic Tissue Type Adherent Slough Adherent Slough Adherent Slough -Structure Exposed N/A -Texture (Ara-wound Skin Appearance) Assessed, Scarring Assessed Scarring -Moisture (Ara-wound Skin Appearance) No Abnormality, Dry/Scaly Assessed Assessed -Color (Ara-wound Skin Appearance) No Abnormality, Hemosiderin Assessed Assessed Staining -Temperature (Ara-wound Skin No Abnormality No Abnormality No Abnormality Appearance) (Pt Warm) (Pt Warm) (Pt Warm) -Tenderness on Palpation (Ara-wound No No Skin Appearance) -Ulcer Cleansing Soap and Water Soap and Water Rinsed/ Irrigated with Saline -Foul Odor after Cleansing No No No -Anesthetic Used 4% Lidocaine 4% Lidocaine 4% Lidocaine Solution Solution Solution #12 Medial Superior LLE -Combined with (Name of Wound-Exactly 1.3 as it is documented) -Current Size (cm) - Length 4 1 0.9 -Current Size (cm) - Width 2.5 0.4 0.1 -Current Size (cm) - Depth 0.2 0.1 -Total Square Cm 10.0 0.4 0.09 -Photo Taken No -Exudate Amt Medium Medium Medium -Exudate Type Serosanguineous Serosanguineous Serous -Wound Margin Distinct, Distinct, Flat & Intact Outline Outline Attached Attached -Granulation Amt Medium (34-66%) Large (67-100%) Medium (34-66%) -Granulation Quality [place] Red Pale,[place] -Necrosis Amt Medium (34-66%) Small (1-33%) Medium (34-66%) -Necrotic Tissue Type Adherent Slough Adherent Slough Adherent Slough -Structure Exposed N/A -Texture (Ara-wound Skin Appearance) Assessed, Scarring Assessed Scarring -Moisture (Ara-wound Skin Appearance) No Abnormality, Dry/Scaly Assessed Assessed -Color (Ara-wound Skin Appearance) No Abnormality, Hemosiderin Assessed Assessed Staining -Temperature (Ara-wound Skin No Abnormality No Abnormality No Abnormality Appearance) (Pt Warm) (Pt Warm) (Pt Warm) -Tenderness on Palpation (Ara-wound No No No Skin Appearance) -Ulcer Cleansing Soap and Water Soap and Water Rinsed/ Irrigated with Saline -Foul Odor after Cleansing No -Anesthetic Used 5% Lidocaine 4% Lidocaine 4% Lidocaine Gel Solution Solution #11 Medial Inferior LLE -Current Size (cm) - Length 1 4 3.3 -Current Size (cm) - Width 0.5 2.9 2.4 -Current Size (cm) - Depth 0.2 0.1 0.2 -Total Square Cm 0.5 11.6 7.92 -Photo Taken No -Exudate Amt Medium Medium Small -Exudate Type Serosanguineous Serosanguineous Serous -Wound Margin Distinct, Distinct, Flat & Intact Outline Outline Attached Attached -Granulation Amt Medium (34-66%) Medium (34-66%) Medium (34-66%) -Granulation Quality Pale Red Pale,[place] -Necrosis Amt Medium (34-66%) Medium (34-66%) Small (1-33%) -Necrotic Tissue Type Adherent Slough Adherent Slough Adherent Slough -Structure Exposed N/A -Texture (Ara-wound Skin Appearance) Assessed, Scarring Assessed Scarring -Moisture (Ara-wound Skin Appearance) No Abnormality, Dry/Scaly Assessed Assessed -Color (Ara-wound Skin Appearance) No Abnormality, Hemosiderin Assessed, Assessed Staining Hemosiderin Staining -Temperature (Ara-wound Skin No Abnormality No Abnormality No Abnormality Appearance) (Pt Warm) (Pt Warm) (Pt Warm) -Tenderness on Palpation (Ara-wound No No Skin Appearance) -Ulcer Cleansing Soap and Water Soap and Water Rinsed/ Irrigated with Saline -Foul Odor after Cleansing No No -Anesthetic Used 5% Lidocaine 4% Lidocaine 4% Lidocaine Gel Solution Solution #10 Left Medial Ankle -Current Size (cm) - Length 5.5 5.2 5.2 -Current Size (cm) - Width 3 3.3 3.3 -Current Size (cm) - Depth 0.2 0.2 0.2 -Total Square Cm 16.5 17.16 17.16 -Photo Taken No -Exudate Amt Medium Medium Small -Exudate Type Serosanguineous Serosanguineous Serous -Wound Margin Distinct, Distinct, Flat & Intact Outline Outline Attached Attached -Granulation Amt Medium (34-66%) Medium (34-66%) Medium (34-66%) -Granulation Quality [place] Red Pale,[place] -Necrosis Amt Medium (34-66%) Medium (34-66%) Small (1-33%) -Necrotic Tissue Type Adherent Slough Adherent Slough Adherent Slough -Structure Exposed N/A -Texture (Ara-wound Skin Appearance) Assessed, Scarring Assessed Scarring -Moisture (Ara-wound Skin Appearance) No Abnormality, Dry/Scaly Assessed Assessed -Color (Ara-wound Skin Appearance) No Abnormality, Hemosiderin Assessed, Assessed Staining Hemosiderin Staining -Temperature (Ara-wound Skin No Abnormality No Abnormality No Abnormality Appearance) (Pt Warm) (Pt Warm) (Pt Warm) -Tenderness on Palpation (Ara-wound No No Skin Appearance) -Ulcer Cleansing Soap and Water Soap and Water Rinsed/ Irrigated with Saline -Foul Odor after Cleansing No No -Anesthetic Used 4% Lidocaine 4% Lidocaine 4% Lidocaine Solution Solution Solution Right Calf (cm) 36.6 37.1 Right Ankle (cm) 22 27.1 Left Calf (cm) 35.2 35.5 Left Ankle (cm) 22.6 22.8 WC - Nurse 2 - General Ulcer CM Notes Start: 06/29/22 09:15 Freq: Status: Active Protocol: Activity Type Activity Date Activity User E-sign Co-sign Detail Recorded Client Recorded Date Recorded By Document 06/29/22 09:52 MW [id number] 06/29/22 10:07 MW Edit Result 06/29/22 09:52 MW (1) [id number] 06/30/22 06:46 PL Document 07/13/22 09:42 MW [id number] 07/13/22 09:54 MW Document 07/27/22 10:09 MW [id number] 07/27/22 10:22 MW (1) #15 R Med Ankle - Debridement - Subq, 1st 20sq cm No => Yes - Debridement, SubQ, ea addt'l 20sq cm 1 => 2 or part thereof 06/29/22 07/13/22 07/27/22 09:52 09:42 10:09 Wound Center Nurse 2 #16 right Medial LE -Time 09:52 09:43 -Correct Patient Yes Yes -Correct Side, Site, Position Yes Yes -Correct Procedure Yes Yes -Procedure Performed No No -Post Debridement (cm) - Length 0.1 0 -Post Debridement (cm) - Width 0.1 0 -Post Debridement (cm) - Depth 0.1 -Total Square (Post) (cm) 0.01 0 -Tunneling No No -Undermining/Tunneling No No -Circular Undermining No No -Wound/Ulcer Outcome Not Healed Healed- Epithelialized -Ulcer Cleansing Rinsed/ Irrigated with Saline -Foul Odor after Cleansing No -Bioengineered Tissue No #15 R Med Ankle -Time 09:53 09:44 10:09 -Correct Patient Yes Yes Yes -Correct Side, Site, Position Yes Yes Yes -Correct Procedure Yes Yes Yes -Procedure Performed Yes Yes Yes -Type of Procedure Debridement Debridement Debridement -Clinical Debridement Subcutaneous Subcutaneous Subcutaneous -Tissue Removed Subcutaneous Subcutaneous Subcutaneous -Post Debridement (cm) - Length 7.0 7.0 7.0 -Post Debridement (cm) - Width 3.5 3.0 2.8 -Post Debridement (cm) - Depth 0.3 0.2 0.2 -Total Square (Post) (cm) 24.50 21.00 19.60 -Area of Debridement (cm) - Length 7.0 7.0 7.0 -Area of Debridement (cm) - Width 3.5 3.0 2.8 -Total Square (Area) (cm) 24.50 21.00 19.60 -Tunneling No No No -Undermining/Tunneling No No No -Circular Undermining No No No -Wound/Ulcer Outcome Not Healed Not Healed Not Healed -Ulcer Cleansing Rinsed/ Rinsed/ Rinsed/ Irrigated with Irrigated with Irrigated with Saline Saline Saline -Foul Odor after Cleansing No No No -Bioengineered Tissue No No No -Bleeding Controlled with Pressure Pressure Pressure -Treatment Response Procedure Procedure Procedure Tolerated Well Tolerated Well Tolerated Well -Offloading No No No -Debridement - Subq, 1st 20sq cm Yes Yes Yes -Debridement, SubQ, ea addt'l 20sq cm 2 2 or part thereof #12 Medial Superior LLE -Time 09:53 09:44 10:09 -Correct Patient Yes Yes Yes -Correct Side, Site, Position Yes Yes Yes -Correct Procedure Yes Yes Yes -Procedure Performed Yes Yes Yes -Type of Procedure Debridement Debridement Debridement -Clinical Debridement Subcutaneous Subcutaneous Subcutaneous -Tissue Removed Subcutaneous Subcutaneous Subcutaneous -Post Debridement (cm) - Length 1.3 1.0 0.8 -Post Debridement (cm) - Width 0.7 0.3 0.3 -Post Debridement (cm) - Depth 0.1 0.1 0.1 -Total Square (Post) (cm) 0.91 0.30 0.24 -Area of Debridement (cm) - Length 1.3 1.0 0.8 -Area of Debridement (cm) - Width 0.7 0.3 0.3 -Total Square (Area) (cm) 0.91 0.30 0.24 -Tunneling No No No -Undermining/Tunneling No No No -Circular Undermining No No No -Wound/Ulcer Outcome Not Healed Not Healed Not Healed -Ulcer Cleansing Rinsed/ Rinsed/ Rinsed/ Irrigated with Irrigated with Irrigated with Saline Saline Saline -Foul Odor after Cleansing No No No -Bioengineered Tissue No No No -Bleeding Controlled with Pressure Pressure Pressure -Treatment Response Procedure Procedure Procedure Tolerated Well Tolerated Well Tolerated Well -Offloading No No No -Debridement - Subq, 1st 20sq cm No No No #11 Medial Inferior LLE -Time 09:53 09:45 10:10 -Correct Patient Yes Yes Yes -Correct Side, Site, Position Yes Yes Yes -Correct Procedure Yes Yes Yes -Procedure Performed Yes Yes Yes -Type of Procedure Debridement Debridement Debridement -Clinical Debridement Subcutaneous Subcutaneous Subcutaneous -Tissue Removed Subcutaneous Subcutaneous Subcutaneous -Post Debridement (cm) - Length 4.4 4.0 4.0 -Post Debridement (cm) - Width 2.4 2.2 2.5 -Post Debridement (cm) - Depth 0.1 0.1 0.1 -Total Square (Post) (cm) 10.56 8.80 10.00 -Area of Debridement (cm) - Length 4.4 4.0 4.0 -Area of Debridement (cm) - Width 2.4 2.2 2.5 -Total Square (Area) (cm) 10.56 8.80 10.00 -Tunneling No No No -Undermining/Tunneling No No No -Circular Undermining No No No -Wound/Ulcer Outcome Not Healed Not Healed Not Healed -Ulcer Cleansing Rinsed/ Rinsed/ Rinsed/ Irrigated with Irrigated with Irrigated with Saline Saline Saline -Foul Odor after Cleansing No No No -Bioengineered Tissue No No No -Bleeding Controlled with Pressure Pressure Pressure -Treatment Response Procedure Procedure Procedure Tolerated Well Tolerated Well Tolerated Well -Offloading No No No -Debridement - Subq, 1st 20sq cm No No No #10 Left Medial Ankle -Time 09:54 09:45 10:10 -Correct Patient Yes Yes Yes -Correct Side, Site, Position Yes Yes Yes -Correct Procedure Yes Yes Yes -Procedure Performed Yes Yes Yes -Type of Procedure Debridement Debridement Debridement -Clinical Debridement Subcutaneous Subcutaneous Subcutaneous -Tissue Removed Subcutaneous Subcutaneous Subcutaneous -Post Debridement (cm) - Length 5.0 4.4 4.3 -Post Debridement (cm) - Width 3.5 3.3 3.7 -Post Debridement (cm) - Depth 0.2 0.2 0.2 -Total Square (Post) (cm) 17.50 14.52 15.91 -Area of Debridement (cm) - Length 5.0 4.4 4.3 -Area of Debridement (cm) - Width 3.5 3.3 3.7 -Total Square (Area) (cm) 17.50 14.52 15.91 -Tunneling No No No -Undermining/Tunneling No No No -Circular Undermining No No No -Wound/Ulcer Outcome Not Healed Not Healed Not Healed -Ulcer Cleansing Rinsed/ Rinsed/ Rinsed/ Irrigated with Irrigated with Irrigated with Saline Saline Saline -Foul Odor after Cleansing No No No -Bioengineered Tissue No No No -Bleeding Controlled with Pressure Pressure Pressure -Treatment Response Procedure Procedure Procedure Tolerated Well Tolerated Well Tolerated Well -Offloading No No No -Debridement - Subq, 1st 20sq cm No No No Pain Scale: 0-10 Numeric Is Patient Pain Free? Yes Yes Yes WC - Nurse 3 - General Ulcer D/C NN Start: 06/29/22 09:15 Freq: Status: Active Protocol: Activity Type Activity Date Activity User E-sign Co-sign Detail Recorded Client Recorded Date Recorded By Document 06/29/22 13:21 KR [id number] 06/29/22 13:21 KR Document 07/13/22 10:08 DL [id number] 07/13/22 10:12 DL Document 07/27/22 10:25 [facility] [id number] 07/27/22 10:28 BMF 06/29/22 07/13/22 07/27/22 13:21 10:08 10:25 Wound Care Nurse 3 #16 right Medial LE -Ulcer Cleansing Rinsed/ Irrigated with Saline -Primary Dressing Applied Aquacel AG 4x4 -Primary Dressing Covered/Secured with Dry Gauze, Secured with Tape -Aquacel AG 4x4 2 #15 R Med Ankle -Ulcer Cleansing Rinsed/ Irrigated with Saline -Foul Odor after Cleansing No -Primary Dressing Applied Aquacel Extra -Other Dressing Bactroban, aquacel ag, Kerramax kerramax -Primary Dressing Covered/Secured with Secured with Tape -Other Covering ABD per dl overedger -Aquacel Extra 1 #12 Medial Superior LLE -Ulcer Cleansing Soap and Water Rinsed/ Irrigated with Saline -Foul Odor after Cleansing No No -Other Dressing Bactroban/ aquacel ag, kerramax/ kerramax aquacel Ex -Primary Dressing Covered/Secured with Secured with Secured with Tape Tape -Other Covering ABD per dl overedger #11 Medial Inferior LLE -Ulcer Cleansing Soap and Water Rinsed/ Irrigated with Saline -Foul Odor after Cleansing No No -Other Dressing bactroban. aquacel ag, kerrtamax/ kerramax aquacel Ex -Primary Dressing Covered/Secured with Secured with Tape -Other Covering ABD per dl overedger #10 Left Medial Ankle -Ulcer Cleansing Soap and Water Rinsed/ Irrigated with Saline -Foul Odor after Cleansing No No -Other Dressing Bactroban/ aquacel ag, Keerramax/ kerramax Aquacel Ex -Primary Dressing Covered/Secured with Secured with Tape -Other Covering ABD per dl overedger BLE -Other pt applies own compression stockings Left -Stockings Yes Right -Stockings Yes Treatment Response Procedure Procedure Tolerated Well Tolerated Well Pain Scale: 0-10 Numeric Is Patient Pain Free? Yes Yes Yes WC - Visit Discharge Discharge Condition Stable Stable Stable Ambulatory Status Ambulatory Ambulatory Ambulatory Transportation Private Auto Private Auto Private Auto Additional Wound Wound debrided: Left Medial Ankle Type of Debridement: Excisional debridement Anesthesia Used: 4% Lidocaine Solution Depth: Down to and including healthy tissue and in the subcutaneous layer Percentage of wound debrided: 100 Instrument Used: 5mm curette Tissue Removed: Slough and devitalized tissue Severity: Fat Layer Exposed Amount of bleeding with debridement: Mild Bleeding Controlled with: Pressure Patient tolerated procedure: Patient tolerated procedure well Additional Wound Wound debrided: Left Lower Extremity ( Inferior ) Type of Debridement: Excisional debridement Anesthesia Used: 4% Lidocaine Solution Depth: Down to and including healthy tissue and in the subcutaneous layer Percentage of wound debrided: 100 Instrument Used: 5mm curette Tissue Removed: Slough and devitalized tissue Severity: Fat Layer Exposed Amount of bleeding with debridement: Mild Bleeding Controlled with: Pressure Patient tolerated procedure: Patient tolerated procedure well Additional Wound Wound debrided: Left lower extremity ( Superior ) Type of Debridement: Excisional debridement Anesthesia Used: 4% Lidocaine Solution Depth: Down to and including healthy tissue and in the subcutaneous layer Percentage of wound debrided: 100 Instrument Used: 5mm curette Tissue Removed: Slough and devitalized tissue Severity: Fat Layer Exposed Amount of bleeding with debridement: Mild Bleeding Controlled with: Pressure Patient tolerated procedure: Patient tolerated procedure well Assessment/Plan Assessment/Plan (1) Ulcer of left lower extremity with fat layer exposed: CODE(S): L97.922 - Non-pressure chronic ulcer of unspecified part of left lower leg with fat layer exposed (2) Ulcer of right lower extremity with fat layer exposed: CODE(S): L97.912 - Non-pressure chronic ulcer of unspecified part of right lower leg with fat layer exposed (3) PVD (peripheral vascular disease): CODE(S): I73.9 - Peripheral vascular disease, unspecified (4) Chronic venous insufficiency: CODE(S): I87.2 - Venous insufficiency (chronic) (peripheral) (5) Delayed wound healing: CODE(S): T14.8XXD - Other injury of unspecified body region, subsequent encounter PLAN: Plan Debridement done as documented above, procedure was well-tolerated. Some improvement noted. Continue Aquacel and care max to all other ulcers. He was advised to change daily to twice daily depending on drainage. Continue mupirocin ointment as well. Continue use of compression stockings, leg elevation and exercise. Increased protein intake, protein supplements, zinc and vitamin C also recommended. Continue multivitamins. His questions were answered and was advised to call with any further questions or concerns. Follow-up in 2 weeks per patient preference. This note was generated with [employer] dictation software. It may contain incorrect words, spelling, and punctuation that were not noted in checking the note before signing.
== END 2022-07-28 23:59 | disposition home or self-care (01) ==
LOC: WC 09:00
PROVIDERS: Visit Provider Internal Medicine
DX: I73.9 Peripheral vascular disease, unspecified (principal); L97.822 Non-pressure chronic ulcer of other part of left lower leg with fat layer exposed; L97.812 Non-pressure chronic ulcer of other part of right lower leg with fat layer exposed; L97.322 Non-pressure chronic ulcer of left ankle with fat layer exposed; I87.2 Venous insufficiency (chronic) (peripheral); R60.0 Localized edema
CPT/HCPCS: 11042; 11045

== ENCOUNTER 2022-07-31 06:21 | Day surgery (SDC) | payer BC, SELFPAY ==
[2022-06-29 11:25] LABS: Hematocrit 42.9 % (40-54); Hemoglobin 14.3 g/dL (13.0-16.5); Mean Corp Hgb Conc 33.3 g/dL (32-36); Mean Corpuscular Hgb 29.5 pg (27.0-32.0); Mean Corpuscular Volume 88.6 fL (80-94); Mean Platelet Vol. 11.5 fl (6.2-12.0); Platelet Count 166 K/mm3 (150-450); RBC Distribution Width CV 13.8 % (11.6-14.6); RBC Distribution Width SD 44.7 fl (35.1-43.9); Red Blood Count 4.84 M/mm3 (4.6-6.2)
[2022-06-29 11:54] LABS: Anion Gap 5 (5-15); BUN 20 mg/dL (7-18); BUN/Creat Ratio 17.5 RATIO (10-20); Calcium,Total 8.5 mg/dL (8.5-10.1); Chloride 110 mmol/L (98-107); Creatinine, Serum 1.14 mg/dL (0.70-1.30); EST Glomerular Filtration Rate 70 mL/min (>60); Est Glom Filt Rate - Afr Amer 85 mL/min (>60); Glucose 98 mg/dL (74-106); Potassium 3.4 mmol/L (3.5-5.1); Sodium Level 142 mmol/L (136-145)
[2022-06-30 08:01] VITALS: BMI 36.3
[2022-07-31] VITALS (8 sets, daily range): BP systolic 119–172; BP diastolic 63–92; PULSE 77–88; RESP 15–18; TEMP 35.9–36.6; O2SAT 96–100; BMI 35.4
[2022-07-31] MEDS: Lactated Ringers 1,000 ML 15 ML IV (07:20)
--- NOTE | 2022-07-31 07:41 | EKG12_ITS ---
Test Reason : SURGERY Blood Pressure : / mmHG Vent. Rate : 088 BPM Atrial Rate : 088 BPM P-R Int : 134 ms QRS Dur : 092 ms QT Int : 386 ms P-R-T Axes : 034 069 -43 degrees QTc Int : 467 ms Sinus rhythm with Premature supraventricular complexes Otherwise normal ECG Confirmed by KILO LOVE, JOSÉ MIGUEL ([id number]), health editor [facility] ([id number]) on 08/02/2022 9:48:32 AM Referred By: Christian Doty Confirmed By:JOSÉ MIGUEL BOATENG MD
--- NOTE | 2022-07-31 08:05 | HP.PCM_ITS ---
HPI - General HPI Narrative RUBEN ALLEN, is a 57 M who presents for venogram, possible stent of central venous system. Has had long standing, recurrent wounds bilateral left worse than right. Currently wounds slowly improving. COUNTS INCLUDE 234 BEDS AT THE [facility] Medical History Former smoker History of edema MRSA infection Stasis ulcer Ulcer of right lower extremity with fat layer exposed Home Medications aspirin 81 mg chewable tablet 81 mg PO DAILY@0800 HEALTH 07/04/18 [History Last Taken 07/17/21] ibuprofen 200 mg tablet 400 mg PO Q6H PRN PRN Pain 07/04/18 [History Last Taken 07/18/21] atorvastatin 20 mg tablet 20 mg PO QHS CHOLESTEROL 07/18/21 [History Last Taken 07/17/21] hydrochlorothiazide 25 mg tablet 25 mg PO DAILY BP 07/18/21 [History Last Taken 07/18/21] Allergy/AdvReac Type Severity Reaction Status Date / Time ciprofloxacin [From Cipro] Allergy Rash Verified 07/31/22 07:05 ciprofloxacin HCl Allergy Rash Verified 07/31/22 07:05 [From Cipro] Social History Smoking Status: Former smoker ROS Constitutional Constitutional: Denies chills, fever(s), frequent falls, lethargy or weakness Eyes Eyes: Denies blind spots, change in vision or loss of vision ENT HEENT: Denies bleeding gums, hoarseness or sore throat Cardiovascular Cardiovascular: Denies abdominal pain, bluish discoloration of hand/feet, chest pain with activity, claudication, cold extremities, cyanosis, dyspnea on exertion, erythema on extremities, irregular heart rhythm, leg edema, leg ulcers, numbness in extremities or weakness in extremities Respiratory/Chest Respiratory/Chest: Denies cough, excessive phlegm production, shortness of breath at rest, shortness of breath with exertion or wheezing Gastrointestinal Gastrointestinal: Denies anorexia, change in stool character, constipation, diarrhea, melena or rectal bleeding Genitourinary Genitourinary: Denies dysuria or hematuria Musculoskeletal Musculoskeletal: Denies abnormal gait Integumentary Integumentary: Denies erythema Neurologic Neurologic: Denies abnormal speech, focal weakness, headache(s), loss of vision, numbness, paresthesias or sensory deficit Hematologic/Lymphatic Hematologic/Lymphatic: Denies easy bleeding, easy bruising or lymphadenopathy Vital Signs Vital Signs Vital Signs: 07/31/22 07:07 07/31/22 07:07 Temperature 97 F L Temperature Source Temporal Pulse Rate 88 Respiratory Rate 18 Respiratory Pattern Normal Blood Pressure 172/63 H Blood Pressure Mean 99 Blood Pressure Source Monitor Blood Pressure Position Semi-Fowlers Blood Pressure Location Right Arm Pulse Ox 100 Oxygen Delivery Method Room Air Weight Weight: 240 lb Body Mass Index (BMI) 35.4 Physical Exam Const alert, oriented x3, no apparent distress and healthy appearing General Appearance: cooperative; Negative for combative or lethargic Orientation / Consciousness: awake Exam Limitations: no limitations HEENT Head and Scalp: normocephalic and atraumatic Eyes EOMs intact bilaterally General Eye: normal appearance of both eyes Neck full ROM, no lymphadenopathy, thyroid normal and No no carotid bruits General: trachea midline; Negative for lymphadenopathy or tenderness Thyroid: thyroid normal Lymph Lymphatic: Negative for no lymphadenopathy noted Resp normal respiratory effort and no use of accessory muscles Effort and Inspection: Negative for labored, stridor or audible wheezes Cardio regular rate and regular rhythm Back/Spine Cervical Spine: cervical ROM normal Extremity full ROM, normal capillary refill and no clubbing, cyanosis or edema Skin no rashes or lesions noted Neuro oriented x3, CN's II-XII intact bilaterally, no focal motor deficits and no sensory deficits noted Psych thought process normal, cooperative, affect normal, speech normal and activity/motor behavior normal Results Lab / Micro Data Result Diagrams: 06/29/22 10:35 06/29/22 10:35 Assessment & Plan Assessment/Plan (1) Venous stasis of lower extremity: PLAN: -recurrent venous stasis wounds -venogram
--- NOTE | 2022-07-31 09:22 | DCINST_ITS ---
Discharge Instructions Diet Discharge Diet: No restrictions Activity May shower in (days): 1 Weight Bearing Status: Weight bearing as tolerated Lifting Restrictions: No lifing > 20 lbs for 2 weeks Dressing / Incision Call your doctor if your incision/area has: Sudden Increased Bleeding, Increased Pain/ Swelling, Increased Redness and Swelling at the incision site Call your doctor if you observe: Fever of 101 or Higher and Uncontrolled pain Remove Dressing in: 1 day Follow Up Care Test Results: Test results from this visit will be discussed in further detail at your follow- up appointment, if applicable. Discharge Plan Admission Attending Provider: Christian Doty Primary Care Provider: George Frausto Discharge Orders/Prescriptions Prescriptions: Continued aspirin 81 MG tablet,chewable 81 mg PO DAILY@0800 ibuprofen 200 MG tablet 400 mg PO Q6H PRN PRN (Reason: Pain) atorvastatin 20 mg Tablet 20 mg PO QHS hydrochlorothiazide 25 mg Tablet 25 mg PO DAILY Referrals / Follow Up: George Frausto MD [Primary Care Provider] - Disposition Disposition (needs filled in before D/C Order can be placed): Home, Self Care
--- NOTE | 2022-07-31 10:50 | PCM.OPRPT ---
Report of Operation Date of Procedure: 07/31/22 Pre-Operative Diagnosis: Venous insufficiency with ulceration Post-Operative Diagnosis: Same Surgery/Procedure Performed:: Inferior vena cava venogram with intravascular ultrasound evaluation of the IVC, bilateral common iliac veins, bilateral external iliac veins Surgeon: Christian Doty Type of Anesthesia: General Description of Procedure: HPI: Patient is a 57-year-old male with recurrent bilateral venous stasis ulcers despite multiple infrainguinal ablation procedures. He has been consistently wearing compression for several years and still experiences intermittent wound development. Is taken now for venogram to evaluate his central system with possible intervention. Description of procedure: Upon obtaining informed consent and verification correct patient procedure site patient was seen in the [facility] where he was placed under general anesthesia. He was then positioned prepped and draped in usual sterile fashion a timeout performed. Under ultrasound guidance the right common femoral vein was accessed in a retrograde fashion using micropuncture needle and wire. This was then exchanged out for micropuncture sheath through which an ilio caval venogram was performed revealing satisfactory placement with brisk contrast transit. Through the micropuncture sheath a Magic wire was advanced in the inferior vena cava and the micropuncture sheath exchanged for an 8 [place] sheath. Next left common femoral vein was accessed in retrograde fashion with a micropuncture needle and wire. Again this was exchanged for micropuncture sheath through which an ileal caval venogram was performed revealing satisfactory placement and brisk contrast though widened common iliac vein. A J-wire was then advanced to the micropuncture sheath which was then exchanged out for a 10 [place] sheath. Patient was in heparinized allowed to circulate for 3 minutes. An intravascular ultrasound probe was then advanced via the right femoral access sheath into the inferior vena cava and a digital recorded pullback of the IVC and the right common and external iliac veins was performed. The right common iliac vein was small in caliber throughout but with no focal compression in the right external iliac vein was normal in appearance. Probe was then withdrawn and advanced via the left femoral sheath and again a digital recorded pullback was performed of the IVC and the left common and external iliac veins. This evaluation revealed normal caliber left common iliac vein with a focal compression of 40% with a normal caliber external iliac vein. [place] that this compression did not meet threshold appropriate for intervention so the ultrasound catheter and wires were withdrawn and the sheaths were withdrawn and manual pressure held for 10 minutes. Conclusion the case patient was awakened anesthesia taken recovery room with anticipated discharge home after 2 hours of bedrest.
== END 2022-07-31 11:53 | disposition home or self-care (01) ==
LOC: CLSP 06:24 → AC 06:38
PROVIDERS: PCP Family Medicine; Referring Provider Surgery Trauma Surgery; Visit Provider Surgery Trauma Surgery
DX: I87.2 Venous insufficiency (chronic) (peripheral) (principal); L97.919 Non-pressure chronic ulcer of unspecified part of right lower leg with unspecified severity; L97.929 Non-pressure chronic ulcer of unspecified part of left lower leg with unspecified severity; I10 Essential (primary) hypertension; Z79.82 Long term (current) use of aspirin; Z79.899 Other long term (current) drug therapy; Z87.891 Personal history of nicotine dependence
CPT/HCPCS: 36005; 36415; 37252; 37253; 75822; 76937; 80048; 85027; 93005; C1753; C1894; J7120; Q9967; C1769; J2405

== ENCOUNTER 2022-08-17 09:00 | Outpatient (RCR) | payer BC, SELFPAY ==
[2022-07-29 01:08] VITALS: BP 170/80; PULSE 76; RESP 18; TEMP 35.9; O2SAT 99; BMI 31.4
[2022-08-10 09:33] VITALS: BP 161/83; PULSE 92; RESP 18; TEMP 36.4; BMI 31.4
--- NOTE | 2022-08-10 13:04 | PCM.WC.PN ---
History of Present Illness Date of Service: 08/10/22 Chief Complaint: ulcers to the left lower leg History of Wound: This is a 54-year-old male presents to wound healing center with a long-standing history of chronic venous insufficiency, chronic venous hypertension, lower extremity edema, lower extremity pain, and chronic left lower extremity ulcer. 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 He is currently wearing graduated compression stockings which are documented to be 20-30 mmHg compression and these are thigh high. He reports great compliance with use. He is also had previous arterial work-up with no intervention recommended by letter, his vascular surgeon. He denies taking nutritional supplementation. He saw dermatology and had a biopsy of the ulcer site. He also was previously treated by infectious disease for various contaminations and infections. He is not antibiotics at this time nor does he have any redness or odor coming from the wound. He denies fever, chill, nausea, vomiting, loss of appetite. 05/18/22: Mr. Jeronimo presents with a new right lower extremity ulceration. He states that this has been present for months and he has been trying to manage it at home without any significant improvement. Opened up months ago, no known precipitating factor. Has been applying wound dressings without any significant improvement. He reports increased drainage. Denies significant pain. No chills, fever or feeling of unwell. Progress of Wound: No new concerns at this time. Recently had a procedure done by Vascular surgery and per patient, no significant concerns were noted. Left superior with minimal area left and Right lower extremity improving. Objective Data Objective Data Vital Signs: Vital Signs Temp Pulse Resp BP Pulse Ox O2 Del Method 97.5 F L 92 18 161/83 H 99 Room Air 08/10/22 09:33 08/10/22 09:33 08/10/22 09:33 08/10/22 09:33 07/29/22 01:08 08/10/22 09:33 Oxygen Delivery Method Room Air Body Mass Index (BMI) 31.4 Charges/Coding Procedures Integumentary 111xxx-113xx: 41469 Lakeisha subq tissue 20 sq cm/< Add On Codes: 20704 Lakeisha subq tissue add-on (Additional Sq Cm debrided, please refer to clinical note.) Physical Exam Const alert, oriented x3, no apparent distress and healthy appearing General Appearance: cooperative; Negative for combative or lethargic Orientation / Consciousness: awake Exam Limitations: no limitations HEENT Head and Scalp: normocephalic and atraumatic Eyes EOMs intact bilaterally General Eye: normal appearance of both eyes Neck full ROM, no lymphadenopathy, thyroid normal and No no carotid bruits General: trachea midline; Negative for lymphadenopathy or tenderness Thyroid: thyroid normal Lymph Lymphatic: Negative for no lymphadenopathy noted Resp normal respiratory effort and no use of accessory muscles Effort and Inspection: Negative for labored, stridor or audible wheezes Cardio regular rate and regular rhythm Back/Spine Cervical Spine: cervical ROM normal Extremity full ROM, normal capillary refill and no clubbing, cyanosis or edema Skin no rashes or lesions noted Neuro oriented x3, CN's II-XII intact bilaterally, no focal motor deficits and no sensory deficits noted Psych thought process normal, cooperative, affect normal, speech normal and activity/motor behavior normal Debridement Note Debridement Note Wound debrided: Right lower extremity ( medial ) Type of Debridement: Excisional debridement Anesthesia Used: 4% Lidocaine Solution Depth: Down to and including healthy tissue and in the subcutaneous layer Percentage of wound debrided: 100 Instrument Used: 5mm curette Tissue Removed: Slough and devitalized tissue Severity: Fat Layer Exposed Amount of bleeding with debridement: Mild Bleeding Controlled with: Pressure Patient tolerated procedure: Patient tolerated procedure well Post-Debridement Measurements and Additional Note: Post-Debridement Measurements/Treatment - Nurse 1 - General Ulcer Assessment Start: 08/10/22 09:15 Freq: Status: Active Protocol: SHANTA Activity Type Activity Date Activity User E-sign Co-sign Detail Recorded Client Recorded Date Recorded By Document 08/10/22 09:33 MA [id number] 08/10/22 09:40 MA 08/10/22 09:33 - Today's Visit Information Type of service Follow-up Visit (Physician/[facility] [employer] ) Arrival Mode Ambulatory Accompanied by self Patient Identification Verified (Name & Yes ) Safety Precautions Fall Prevention Height and Weight Body Mass Index (BMI) 31.4 BMI Classification Obese Vital Signs Temperature (97.8 F-99.1 F) 97.5 F L Temperature Source Temporal Pulse Rate (60-100) 92 Pulse Location Monitor Respiratory Rate (12-18) 18 Respiratory rate source Observation Oxygen Delivery Method Room Air Blood Pressure (90/60-120/80) 161/83 H Blood Pressure Mean (mm Hg) 109 Source Monitor Position Sitting Blood Pressure Location Left Arm History Since Last Visit- (Skip if this is Patient's initial visit) Have you been in the hospital since your Yes last visit? Has dressing in place as prescribed Yes Has compression in place as prescribed Yes Has offloadiing in place as prescribed Yes Experienced any changes in pain level or Yes management Left Footwear Regular Shoe Right Footwear Regular Shoe Pain Scale: 0-10 Numeric Is Patient Pain Free? Yes WC - Nurse 1 - General Ulcer Measurement Start: 08/10/22 09:15 Freq: Status: Active Protocol: Activity Type Activity Date Activity User E-sign Co-sign Detail Recorded Client Recorded Date Recorded By Document 08/10/22 09:33 MA [id number] 08/10/22 09:40 MA 08/10/22 09:33 Wound Center Nurse 1 #15 R Med Ankle -Current Size (cm) - Length 6.5 -Current Size (cm) - Width 3.0 -Current Size (cm) - Depth 0.1 -Total Square Cm 19.50 -Exudate Amt Small -Exudate Type Serosanguineous -Wound Margin Flat & Intact -Granulation Amt Large (67-100%) -Granulation Quality Pale,[place] -Necrosis Amt Small (1-33%) -Necrotic Tissue Type Adherent Slough -Texture (Ara-wound Skin Appearance) Assessed -Moisture (Ara-wound Skin Appearance) Assessed -Color (Ara-wound Skin Appearance) Assessed -Temperature (Ara-wound Skin No Abnormality Appearance) (Pt Warm) -Tenderness on Palpation (Ara-wound No Skin Appearance) -Ulcer Cleansing Rinsed/ Irrigated with Saline -Foul Odor after Cleansing No -Anesthetic Used 4% Lidocaine Solution #12 Medial Superior LLE -Current Size (cm) - Length 0.1 -Current Size (cm) - Width 0.1 -Current Size (cm) - Depth 0.1 -Total Square Cm 0.01 -Exudate Amt Small -Exudate Type Serosanguineous -Wound Margin Flat & Intact -Granulation Amt Large (67-100%) -Granulation Quality Pale,[place] -Slough/Fibrin Yes -Necrosis Amt Small (1-33%) -Texture (Ara-wound Skin Appearance) Assessed -Moisture (Ara-wound Skin Appearance) Assessed -Color (Ara-wound Skin Appearance) Assessed -Temperature (Ara-wound Skin No Abnormality Appearance) (Pt Warm) -Tenderness on Palpation (Ara-wound No Skin Appearance) -Ulcer Cleansing Soap and Water -Anesthetic Used 4% Lidocaine Solution #11 Medial Inferior LLE -Current Size (cm) - Length 4 -Current Size (cm) - Width 2.7 -Current Size (cm) - Depth 0.1 -Total Square Cm 10.8 -Exudate Amt Small -Exudate Type Serosanguineous -Wound Margin Flat & Intact -Granulation Amt Large (67-100%) -Granulation Quality Pale,[place] -Necrosis Amt Large (67-100%) -Texture (Ara-wound Skin Appearance) Assessed -Moisture (Ara-wound Skin Appearance) Assessed -Color (Ara-wound Skin Appearance) Assessed -Temperature (Ara-wound Skin No Abnormality Appearance) (Pt Warm) -Tenderness on Palpation (Ara-wound No Skin Appearance) -Ulcer Cleansing Soap and Water -Foul Odor after Cleansing No -Anesthetic Used 4% Lidocaine Solution #10 Left Medial Ankle -Current Size (cm) - Length 5.5 -Current Size (cm) - Width 3.7 -Current Size (cm) - Depth 0.1 -Total Square Cm 20.35 -Exudate Amt Small -Exudate Type Serosanguineous -Wound Margin Flat & Intact -Granulation Amt Large (67-100%) -Granulation Quality Pale,[place] -Necrosis Amt Small (1-33%) -Necrotic Tissue Type Adherent Slough -Texture (Ara-wound Skin Appearance) Assessed -Moisture (Ara-wound Skin Appearance) Assessed -Color (Ara-wound Skin Appearance) Assessed -Temperature (Ara-wound Skin No Abnormality Appearance) (Pt Warm) -Tenderness on Palpation (Ara-wound No Skin Appearance) -Ulcer Cleansing Rinsed/ Irrigated with Saline -Anesthetic Used 4% Lidocaine Solution WC - Nurse 2 - General Ulcer CM Notes Start: 08/10/22 09:15 Freq: Status: Active Protocol: Activity Type Activity Date Activity User E-sign Co-sign Detail Recorded Client Recorded Date Recorded By Document 08/10/22 10:01 MW [id number] 08/10/22 10:18 MW 08/10/22 10:01 Wound Center Nurse 2 #15 R Med Ankle -Time 10:02 -Correct Patient Yes -Correct Side, Site, Position Yes -Correct Procedure Yes -Procedure Performed Yes -Type of Procedure Debridement -Clinical Debridement Subcutaneous -Tissue Removed Subcutaneous -Post Debridement (cm) - Length 6.3 -Post Debridement (cm) - Width 2.0 -Post Debridement (cm) - Depth 0.1 -Total Square (Post) (cm) 12.60 -Area of Debridement (cm) - Length 6.3 -Area of Debridement (cm) - Width 2.0 -Total Square (Area) (cm) 12.60 -Tunneling No -Undermining/Tunneling No -Circular Undermining No -Wound/Ulcer Outcome Not Healed -Ulcer Cleansing Rinsed/ Irrigated with Saline -Foul Odor after Cleansing No -Bioengineered Tissue No -Bleeding Controlled with Pressure -Treatment Response Procedure Tolerated Well -Offloading No -Debridement - Subq, 1st 20sq cm Yes -Debridement, SubQ, ea addt'l 20sq cm 1 or part thereof #12 Medial Superior LLE -Time 10:02 -Correct Patient Yes -Correct Side, Site, Position Yes -Correct Procedure Yes -Procedure Performed Yes -Type of Procedure Debridement -Clinical Debridement Subcutaneous -Tissue Removed Subcutaneous -Post Debridement (cm) - Length 0.1 -Post Debridement (cm) - Width 0.1 -Post Debridement (cm) - Depth 0.1 -Total Square (Post) (cm) 0.01 -Area of Debridement (cm) - Length 0.1 -Area of Debridement (cm) - Width 0.1 -Total Square (Area) (cm) 0.01 -Tunneling No -Undermining/Tunneling No -Circular Undermining No -Wound/Ulcer Outcome Not Healed -Ulcer Cleansing Rinsed/ Irrigated with Saline -Foul Odor after Cleansing No -Bioengineered Tissue No -Bleeding Controlled with Pressure -Treatment Response Procedure Tolerated Well -Offloading No -Debridement - Subq, 1st 20sq cm No #11 Medial Inferior LLE -Time 10:03 -Correct Patient Yes -Correct Side, Site, Position Yes -Correct Procedure Yes -Procedure Performed Yes -Type of Procedure Debridement -Clinical Debridement Subcutaneous -Tissue Removed Subcutaneous -Post Debridement (cm) - Length 3.2 -Post Debridement (cm) - Width 2.0 -Post Debridement (cm) - Depth 0.1 -Total Square (Post) (cm) 6.40 -Area of Debridement (cm) - Length 3.2 -Area of Debridement (cm) - Width 2.0 -Total Square (Area) (cm) 6.40 -Tunneling No -Undermining/Tunneling No -Circular Undermining No -Wound/Ulcer Outcome Not Healed -Ulcer Cleansing Rinsed/ Irrigated with Saline -Foul Odor after Cleansing No -Bioengineered Tissue No -Bleeding Controlled with Pressure -Treatment Response Procedure Tolerated Well -Offloading No -Debridement - Subq, 1st 20sq cm No #10 Left Medial Ankle -Time 10:03 -Correct Patient Yes -Correct Side, Site, Position Yes -Correct Procedure Yes -Procedure Performed Yes -Type of Procedure Debridement -Clinical Debridement Subcutaneous -Tissue Removed Subcutaneous -Post Debridement (cm) - Length 4.5 -Post Debridement (cm) - Width 3.4 -Post Debridement (cm) - Depth 0.2 -Total Square (Post) (cm) 15.30 -Area of Debridement (cm) - Length 4.5 -Area of Debridement (cm) - Width 3.4 -Total Square (Area) (cm) 15.30 -Tunneling No -Undermining/Tunneling No -Circular Undermining No -Wound/Ulcer Outcome Not Healed -Ulcer Cleansing Rinsed/ Irrigated with Saline -Foul Odor after Cleansing No -Bioengineered Tissue No -Bleeding Controlled with Pressure -Treatment Response Procedure Tolerated Well -Offloading No -Debridement - Subq, 1st 20sq cm No Pain Scale: 0-10 Numeric Is Patient Pain Free? Yes - Nurse 3 - General Ulcer D/C NN Start: 08/10/22 09:15 Freq: Status: Active Protocol: Activity Type Activity Date Activity User E-sign Co-sign Detail Recorded Client Recorded Date Recorded By Document 08/10/22 10:27 [facility] [id number] 08/10/22 10:29 [facility] 08/10/22 10:27 Wound Care Nurse 3 #15 R Med Ankle -Ulcer Cleansing Rinsed/ Irrigated with Saline -Foul Odor after Cleansing No -Other Dressing aquacel ag, atb oint -Primary Dressing Covered/Secured with Secured with Tape -Other Covering kerramax #12 Medial Superior LLE -Ulcer Cleansing Rinsed/ Irrigated with Saline -Foul Odor after Cleansing No -Other Dressing aquacel ag, kerramax, atb oint -Primary Dressing Covered/Secured with Secured with Tape #11 Medial Inferior LLE -Ulcer Cleansing Rinsed/ Irrigated with Saline -Foul Odor after Cleansing No -Other Dressing aquacel ag, kerramax, atb oint -Primary Dressing Covered/Secured with Secured with Tape #10 Left Medial Ankle -Ulcer Cleansing Rinsed/ Irrigated with Saline -Foul Odor after Cleansing No -Other Dressing aquacel ag, kerramax, atb oint -Primary Dressing Covered/Secured with Secured with Tape ble -Other pt applied own compression stockings Treatment Response Procedure Tolerated Well Pain Scale: 0-10 Numeric Is Patient Pain Free? Yes WC - Visit Discharge Discharge Condition Stable Ambulatory Status Ambulatory Transportation Private Auto Additional Wound Wound debrided: Left Medial Ankle Type of Debridement: Excisional debridement Anesthesia Used: 4% Lidocaine Solution Depth: Down to and including healthy tissue and in the subcutaneous layer Percentage of wound debrided: 100 Instrument Used: 5mm curette Tissue Removed: Slough and devitalized tissue Severity: Fat Layer Exposed Amount of bleeding with debridement: Mild Bleeding Controlled with: Pressure Patient tolerated procedure: Patient tolerated procedure well Additional Wound Wound debrided: Left Lower Extremity ( Inferior ) Type of Debridement: Excisional debridement Anesthesia Used: 4% Lidocaine Solution Depth: Down to and including healthy tissue and in the subcutaneous layer Percentage of wound debrided: 100 Instrument Used: 5mm curette Tissue Removed: Slough and devitalized tissue Severity: Fat Layer Exposed Amount of bleeding with debridement: Mild Bleeding Controlled with: Pressure Patient tolerated procedure: Patient tolerated procedure well Assessment/Plan Assessment/Plan (1) Ulcer of left lower extremity with fat layer exposed: CODE(S): L97.922 - Non-pressure chronic ulcer of unspecified part of left lower leg with fat layer exposed (2) Ulcer of right lower extremity with fat layer exposed: CODE(S): L97.912 - Non-pressure chronic ulcer of unspecified part of right lower leg with fat layer exposed (3) PVD (peripheral vascular disease): CODE(S): I73.9 - Peripheral vascular disease, unspecified (4) Chronic venous insufficiency: CODE(S): I87.2 - Venous insufficiency (chronic) (peripheral) (5) Delayed wound healing: CODE(S): T14.8XXD - Other injury of unspecified body region, subsequent encounter PLAN: Plan Debridement done as documented above, procedure was well-tolerated. Some improvement noted. Continue Aquacel and care max to all other ulcers. Change daily to twice daily depending on drainage. Continue mupirocin ointment as well. Continue use of compression stockings, leg elevation and exercise. Increased protein intake, protein supplements, zinc and vitamin C also recommended. Continue multivitamins. His questions were answered and was advised to call with any further questions or concerns. Follow-up in1 week. Has an appointment with Vascular surgery in 2 weeks. This note was generated with [employer] dictation software. It may contain incorrect words, spelling, and punctuation that were not noted in checking the note before signing.
[2022-08-17 09:02] VITALS: BP 150/80; PULSE 85; RESP 16; TEMP 35.9; BMI 31.4
--- NOTE | 2022-08-17 12:35 | PCM.WC.PN ---
History of Present Illness Date of Service: 08/17/22 Chief Complaint: ulcers to the left lower leg History of Wound: This is a 54-year-old male presents to wound healing center with a long-standing history of chronic venous insufficiency, chronic venous hypertension, lower extremity edema, lower extremity pain, and chronic left lower extremity ulcer. The patient has previously undergone endovenous laser ablation of the left and right great saphenous vein, the small saphenous vein, the left accessory saphenous vein, and an incompetent left calf game developer vein located 15 cm proximal to the left medial malleolus. He is currently wearing graduated compression stockings which are documented to be 20-30 mmHg compression and these are thigh high. He reports great compliance with use. He is also had previous arterial work-up with no intervention recommended by letter, his vascular surgeon. He denies taking nutritional supplementation. He saw dermatology and had a biopsy of the ulcer site. He also was previously treated by infectious disease for various contaminations and infections. He is not antibiotics at this time nor does he have any redness or odor coming from the wound. He denies fever, chill, nausea, vomiting, loss of appetite. 05/18/22: Mr. Jeronimo presents with a new right lower extremity ulceration. He states that this has been present for months and he has been trying to manage it at home without any significant improvement. Opened up months ago, no known precipitating factor. Has been applying wound dressings without any significant improvement. He reports increased drainage. Denies significant pain. No chills, fever or feeling of unwell. Progress of Wound: Right lower extremity improving. Left superior ulcer essentially healed. No new concerns at this time. Objective Data Objective Data Vital Signs: Vital Signs Temp Pulse Resp BP Pulse Ox O2 Del Method 96.7 F L 85 16 150/80 H 99 Room Air 08/17/22 09:02 08/17/22 09:02 08/17/22 09:02 08/17/22 09:02 07/29/22 01:08 08/17/22 09:02 Oxygen Delivery Method Room Air Body Mass Index (BMI) 31.4 Charges/Coding Procedures Integumentary 111xxx-113xx: 98117 Lakeisha subq tissue 20 sq cm/< Add On Codes: 36752 Lakeisha subq tissue add-on (x1 additional square centimeter debrided, please refer to clinical note.) Physical Exam Const alert, oriented x3 and no apparent distress General Appearance: cooperative and comfortable Orientation / Consciousness: awake HEENT normocephalic Head and Scalp: normal to inspection, normocephalic and atraumatic Face and Sinus: normal facial exam Eyes EOMs intact bilaterally Neck full ROM and supple General: normal visual inspection Resp normal respiratory effort Effort and Inspection: able to speak in complete sentences GI non-tender Extremity normal to inspection General Extremity: edema Skin Wounds: wounds noted Neuro oriented x3 and CN's II-XII intact bilaterally Psych mental status grossly normal Appearance: grossly normal Debridement Note Debridement Note Wound debrided: Right medial lower extremity/ankle Type of Debridement: Excisional debridement Anesthesia Used: 4% Lidocaine Solution Depth: Down to and including healthy tissue and in the subcutaneous layer Percentage of wound debrided: 100 Instrument Used: 5mm curette Tissue Removed: Slough and devitalized tissue Severity: Fat Layer Exposed Amount of bleeding with debridement: Mild Bleeding Controlled with: Pressure Patient tolerated procedure: Patient tolerated procedure well Post-Debridement Measurements and Additional Note: Post-Debridement Measurements/Treatment - Nurse 1 - General Ulcer Assessment Start: 08/10/22 09:15 Freq: Status: Active Protocol: SHANTA Activity Type Activity Date Activity User E-sign Co-sign Detail Recorded Client Recorded Date Recorded By Document 08/10/22 09:33 AK [id number] 08/10/22 09:40 AK Document 08/17/22 09:02 [facility] [id number] 08/17/22 09:10 [facility] 08/10/22 08/17/22 09:33 09:02 - Today's Visit Information Type of service Follow-up Visit Follow-up Visit (Physician/APPLICATION TESTER (Physician/APPLICATION TESTER ) ) Arrival Mode Ambulatory Ambulatory Transfer Assistance None Accompanied by self Patient Identification Verified (Name & Yes Yes ) Patient Requires Transmission-Based No Precautions Safety Precautions Fall Prevention Height and Weight Body Mass Index (BMI) 31.4 31.4 BMI Classification Obese Obese Vital Signs Temperature (97.8 F-99.1 F) 97.5 F L 96.7 F L Temperature Source Temporal Temporal Pulse Rate (60-100) 92 85 Pulse Location Monitor Monitor Respiratory Rate (12-18) 18 16 Respiratory rate source Observation Observation Oxygen Delivery Method Room Air Room Air Blood Pressure (90/60-120/80) 161/83 H 150/80 H Blood Pressure Mean (mm Hg) 109 103 Source Monitor Monitor Position Sitting Sitting Blood Pressure Location Left Arm Left Arm History Since Last Visit- (Skip if this is Patient's initial visit) Have you changed medications since your No last visit? Any new allergies or adverse reactions No Had a fall/change in ADL's that may No increase risk of falls Signs or symptoms of abuse and/or No neglect since last visit Have you been in the hospital since your Yes No last visit? Has dressing in place as prescribed Yes Yes Has compression in place as prescribed Yes Yes Has offloadiing in place as prescribed Yes N/A Experienced any changes in pain level or Yes No management Left Footwear Regular Shoe Regular Shoe Right Footwear Regular Shoe Regular Shoe Pain Scale: 0-10 Numeric Is Patient Pain Free? Yes Yes WC - Nurse 1 - General Ulcer Measurement Start: 08/10/22 09:15 Freq: Status: Active Protocol: Activity Type Activity Date Activity User E-sign Co-sign Detail Recorded Client Recorded Date Recorded By Document 08/10/22 09:33 AK [id number] 08/10/22 09:40 AK Document 08/17/22 09:02 [facility] [id number] 08/17/22 09:10 [facility] 08/10/22 08/17/22 09:33 09:02 Wound Center Nurse 1 #15 R Med Ankle -Combined with other wound No -Current Size (cm) - Length 6.5 6 -Current Size (cm) - Width 3.0 3 -Current Size (cm) - Depth 0.1 0.2 -Total Square Cm 19.50 18 -Date of Last Picture (Recall this 08/17/22 field) -Photo Taken Yes -Epithelialization Small 1-33% -Tunneling No -Undermining/Tunneling No -Circular Undermining No -Exudate Amt Small Medium -Exudate Type Serosanguineous Serosanguineous -Wound Margin Flat & Intact Distinct, Outline Attached -Granulation Amt Large (67-100%) Large (67-100%) -Granulation Quality Pale,[place] Red -Slough/Fibrin Yes -Necrosis Amt Small (1-33%) Small (1-33%) -Necrotic Tissue Type Adherent Slough Adherent Slough -Texture (Ara-wound Skin Appearance) Assessed Assessed, Scarring -Moisture (Ara-wound Skin Appearance) Assessed Assessed,Dry/ Scaly -Color (Ara-wound Skin Appearance) Assessed Assessed, Hemosiderin Staining -Temperature (Ara-wound Skin No Abnormality No Abnormality Appearance) (Pt Warm) (Pt Warm) -Tenderness on Palpation (Ara-wound No No Skin Appearance) -Ulcer Cleansing Rinsed/ Soap and Water Irrigated with Saline -Foul Odor after Cleansing No No -Anesthetic Used 4% Lidocaine 4% Lidocaine Solution Solution #12 Medial Superior LLE -Combined with other wound No -Current Size (cm) - Length 0.1 0.1 -Current Size (cm) - Width 0.1 0.1 -Current Size (cm) - Depth 0.1 0.1 -Total Square Cm 0.01 0.01 -Date of Last Picture (Recall this 08/17/22 field) -Photo Taken Yes -Epithelialization Large 67-100% -Exudate Amt Small -Exudate Type Serosanguineous -Wound Margin Flat & Intact -Granulation Amt Large (67-100%) -Granulation Quality Pale,[place] -Slough/Fibrin Yes -Necrosis Amt Small (1-33%) -Texture (Ara-wound Skin Appearance) Assessed -Moisture (Ara-wound Skin Appearance) Assessed -Color (Ara-wound Skin Appearance) Assessed -Temperature (Ara-wound Skin No Abnormality Appearance) (Pt Warm) -Tenderness on Palpation (Ara-wound No Skin Appearance) -Ulcer Cleansing Soap and Water -Anesthetic Used 4% Lidocaine Solution #11 Medial Inferior LLE -Combined with other wound No -Current Size (cm) - Length 4 3.6 -Current Size (cm) - Width 2.7 2.4 -Current Size (cm) - Depth 0.1 0.2 -Total Square Cm 10.8 8.64 -Date of Last Picture (Recall this 08/17/22 field) -Photo Taken Yes -Epithelialization Small 1-33% -Tunneling No -Undermining/Tunneling No -Circular Undermining No -Exudate Amt Small Medium -Exudate Type Serosanguineous Serosanguineous -Wound Margin Flat & Intact Distinct, Outline Attached -Granulation Amt Large (67-100%) Large (67-100%) -Granulation Quality Pale,[place] Red -Slough/Fibrin Yes -Necrosis Amt Large (67-100%) Small (1-33%) -Necrotic Tissue Type Adherent Slough -Texture (Ara-wound Skin Appearance) Assessed Assessed, Scarring -Moisture (Ara-wound Skin Appearance) Assessed Assessed,Dry/ Scaly -Color (Ara-wound Skin Appearance) Assessed Assessed, Hemosiderin Staining -Temperature (Ara-wound Skin No Abnormality No Abnormality Appearance) (Pt Warm) (Pt Warm) -Tenderness on Palpation (Ara-wound No No Skin Appearance) -Ulcer Cleansing Soap and Water Soap and Water -Foul Odor after Cleansing No No -Anesthetic Used 4% Lidocaine 4% Lidocaine Solution Solution #10 Left Medial Ankle -Combined with other wound No -Current Size (cm) - Length 5.5 4.9 -Current Size (cm) - Width 3.7 3.3 -Current Size (cm) - Depth 0.1 0.2 -Total Square Cm 20.35 16.17 -Date of Last Picture (Recall this 08/17/22 field) -Photo Taken Yes -Epithelialization Small 1-33% -Tunneling No -Undermining/Tunneling No -Circular Undermining No -Exudate Amt Small Medium -Exudate Type Serosanguineous Serosanguineous -Wound Margin Flat & Intact Distinct, Outline Attached -Granulation Amt Large (67-100%) Large (67-100%) -Granulation Quality Pale,[place] Red -Slough/Fibrin Yes -Necrosis Amt Small (1-33%) Small (1-33%) -Necrotic Tissue Type Adherent Slough Adherent Slough -Texture (Ara-wound Skin Appearance) Assessed Assessed, Scarring -Moisture (Ara-wound Skin Appearance) Assessed Assessed,Dry/ Scaly -Color (Ara-wound Skin Appearance) Assessed Assessed, Hemosiderin Staining -Temperature (Ara-wound Skin No Abnormality No Abnormality Appearance) (Pt Warm) (Pt Warm) -Tenderness on Palpation (Ara-wound No No Skin Appearance) -Ulcer Cleansing Rinsed/ Soap and Water Irrigated with Saline -Foul Odor after Cleansing No -Anesthetic Used 4% Lidocaine 4% Lidocaine Solution Solution WC - Nurse 2 - General Ulcer CM Notes Start: 08/10/22 09:15 Freq: Status: Active Protocol: Activity Type Activity Date Activity User E-sign Co-sign Detail Recorded Client Recorded Date Recorded By Document 10/13/22 10:01 MW [id number] 08/10/22 10:18 MW Document 08/17/22 09:22 MW [id number] 08/17/22 09:35 MW 08/10/22 08/17/22 10:01 09:22 Wound Center Nurse 2 #15 R Med Ankle -Time 10:02 09:23 -Correct Patient Yes Yes -Correct Side, Site, Position Yes Yes -Correct Procedure Yes Yes -Procedure Performed Yes Yes -Type of Procedure Debridement Debridement -Clinical Debridement Subcutaneous Subcutaneous -Tissue Removed Subcutaneous Subcutaneous -Post Debridement (cm) - Length 6.3 6.0 -Post Debridement (cm) - Width 2.0 1.5 -Post Debridement (cm) - Depth 0.1 0.1 -Total Square (Post) (cm) 12.60 9.00 -Area of Debridement (cm) - Length 6.3 6.0 -Area of Debridement (cm) - Width 2.0 1.5 -Total Square (Area) (cm) 12.60 9.00 -Tunneling No No -Undermining/Tunneling No No -Circular Undermining No No -Wound/Ulcer Outcome Not Healed Not Healed -Ulcer Cleansing Rinsed/ Rinsed/ Irrigated with Irrigated with Saline Saline -Foul Odor after Cleansing No No -Bioengineered Tissue No No -Bleeding Controlled with Pressure Pressure -Treatment Response Procedure Procedure Tolerated Well Tolerated Well -Offloading No No -Debridement - Subq, 1st 20sq cm Yes Yes -Debridement, SubQ, ea addt'l 20sq cm 1 1 or part thereof #12 Medial Superior LLE -Time 10:02 09:26 -Correct Patient Yes Yes -Correct Side, Site, Position Yes Yes -Correct Procedure Yes Yes -Procedure Performed Yes No -Type of Procedure Debridement -Clinical Debridement Subcutaneous -Tissue Removed Subcutaneous -Post Debridement (cm) - Length 0.1 0.1 -Post Debridement (cm) - Width 0.1 0.1 -Post Debridement (cm) - Depth 0.1 0.1 -Total Square (Post) (cm) 0.01 0.01 -Area of Debridement (cm) - Length 0.1 -Area of Debridement (cm) - Width 0.1 -Total Square (Area) (cm) 0.01 -Tunneling No -Undermining/Tunneling No -Circular Undermining No -Wound/Ulcer Outcome Not Healed Not Healed -Ulcer Cleansing Rinsed/ Rinsed/ Irrigated with Irrigated with Saline Saline -Foul Odor after Cleansing No -Bioengineered Tissue No -Bleeding Controlled with Pressure -Treatment Response Procedure Tolerated Well -Offloading No -Debridement - Subq, 1st 20sq cm No #11 Medial Inferior LLE -Time 10:03 09:27 -Correct Patient Yes Yes -Correct Side, Site, Position Yes Yes -Correct Procedure Yes Yes -Procedure Performed Yes Yes -Type of Procedure Debridement Debridement -Clinical Debridement Subcutaneous Subcutaneous -Tissue Removed Subcutaneous Subcutaneous -Post Debridement (cm) - Length 3.2 3.4 -Post Debridement (cm) - Width 2.0 2.2 -Post Debridement (cm) - Depth 0.1 0.1 -Total Square (Post) (cm) 6.40 7.48 -Area of Debridement (cm) - Length 3.2 3.4 -Area of Debridement (cm) - Width 2.0 2.2 -Total Square (Area) (cm) 6.40 7.48 -Tunneling No No -Undermining/Tunneling No No -Circular Undermining No No -Wound/Ulcer Outcome Not Healed Not Healed -Ulcer Cleansing Rinsed/ Rinsed/ Irrigated with Irrigated with Saline Saline -Foul Odor after Cleansing No No -Bioengineered Tissue No No -Bleeding Controlled with Pressure Pressure -Treatment Response Procedure Procedure Tolerated Well Tolerated Well -Offloading No No -Debridement - Subq, 1st 20sq cm No No #10 Left Medial Ankle -Time 10:03 09:26 -Correct Patient Yes Yes -Correct Side, Site, Position Yes Yes -Correct Procedure Yes Yes -Procedure Performed Yes Yes -Type of Procedure Debridement Debridement -Clinical Debridement Subcutaneous Subcutaneous -Tissue Removed Subcutaneous Subcutaneous -Post Debridement (cm) - Length 4.5 4.0 -Post Debridement (cm) - Width 3.4 3.0 -Post Debridement (cm) - Depth 0.2 0.2 -Total Square (Post) (cm) 15.30 12.00 -Area of Debridement (cm) - Length 4.5 4.0 -Area of Debridement (cm) - Width 3.4 3.0 -Total Square (Area) (cm) 15.30 12.00 -Tunneling No No -Undermining/Tunneling No No -Circular Undermining No No -Wound/Ulcer Outcome Not Healed Not Healed -Ulcer Cleansing Rinsed/ Rinsed/ Irrigated with Irrigated with Saline Saline -Foul Odor after Cleansing No No -Bioengineered Tissue No No -Bleeding Controlled with Pressure Pressure -Treatment Response Procedure Procedure Tolerated Well Tolerated Well -Offloading No No -Debridement - Subq, 1st 20sq cm No No Pain Scale: 0-10 Numeric Is Patient Pain Free? Yes Yes WC - Nurse 3 - General Ulcer D/C NN Start: 08/10/22 09:15 Freq: Status: Active Protocol: Activity Type Activity Date Activity User E-sign Co-sign Detail Recorded Client Recorded Date Recorded By Document 08/10/22 10:27 BMF [id number] 08/10/22 10:29 BMF Document 08/17/22 09:37 MW [id number] 08/17/22 09:40 MW 08/10/22 08/17/22 10:27 09:37 Wound Care Nurse 3 #15 R Med Ankle -Ulcer Cleansing Rinsed/ Rinsed/ Irrigated with Irrigated with Saline Saline -Foul Odor after Cleansing No No -Other Dressing aquacel ag, atb aquacel AG oint -Primary Dressing Covered/Secured with Secured with Secured with Tape Tape -Other Covering kerramax kerramax, abd pad #12 Medial Superior LLE -Ulcer Cleansing Rinsed/ Rinsed/ Irrigated with Irrigated with Saline Saline -Foul Odor after Cleansing No No -Negative Pressure Wound Therapy N/A -Other Dressing aquacel ag, aquacel ag kerramax, atb oint -Primary Dressing Covered/Secured with Secured with Secured with Tape Tape -Other Covering Kerramax, abd #11 Medial Inferior LLE -Ulcer Cleansing Rinsed/ Rinsed/ Irrigated with Irrigated with Saline Saline -Foul Odor after Cleansing No No -Negative Pressure Wound Therapy N/A -Other Dressing aquacel ag, aquacel ag kerramax, atb oint -Primary Dressing Covered/Secured with Secured with Secured with Tape Tape -Other Covering kerramax, abd pad #10 Left Medial Ankle -Ulcer Cleansing Rinsed/ Rinsed/ Irrigated with Irrigated with Saline Saline -Foul Odor after Cleansing No No -Negative Pressure Wound Therapy N/A -Other Dressing aquacel ag, aquacel ag kerramax, atb oint -Primary Dressing Covered/Secured with Secured with Secured with Tape Tape -Other Covering kerramax, abd ble -Lotion applied to leg before No compression wrap -Stockings Yes -Other pt applied own compression stockings Treatment Response Procedure Procedure Tolerated Well Tolerated Well Pain Scale: 0-10 Numeric Is Patient Pain Free? Yes Yes Teaching: Wound Center Dressing Your Wound -Person Taught Patient -Teaching Method Discussion, Demonstration -Response to teaching Verbalize understanding WC - Visit Discharge Discharge Condition Stable Stable Ambulatory Status Ambulatory Ambulatory Transportation Private Auto Private Auto Accompanied by self Medication Reconcilliation completed & No provided to patient/care provider Clinical Summary of Care Provided Yes Notes: Dressing applied per Natali Cheema RN Additional Wound Wound debrided: Left medial ankle Type of Debridement: Excisional debridement Anesthesia Used: 4% Lidocaine Solution Depth: Down to and including healthy tissue and in the subcutaneous layer Percentage of wound debrided: 100 Instrument Used: 5mm curette Tissue Removed: Slough and devitalized tissue Severity: Fat Layer Exposed Amount of bleeding with debridement: Mild Bleeding Controlled with: Pressure Patient tolerated procedure: Patient tolerated procedure well Additional Wound Wound debrided: Left lower extremity inferior Type of Debridement: Excisional debridement Anesthesia Used: 4% Lidocaine Solution Depth: Down to and including healthy tissue and in the subcutaneous layer Percentage of wound debrided: 100 Instrument Used: 5mm curette Tissue Removed: Slough and devitalized tissue Severity: Fat Layer Exposed Amount of bleeding with debridement: Mild Bleeding Controlled with: Pressure Patient tolerated procedure: Patient tolerated procedure well Assessment/Plan Assessment/Plan (1) Ulcer of left lower extremity with fat layer exposed: CODE(S): L97.922 - Non-pressure chronic ulcer of unspecified part of left lower leg with fat layer exposed (2) Ulcer of right lower extremity with fat layer exposed: CODE(S): L97.912 - Non-pressure chronic ulcer of unspecified part of right lower leg with fat layer exposed (3) PVD (peripheral vascular disease): CODE(S): I73.9 - Peripheral vascular disease, unspecified (4) Chronic venous insufficiency: CODE(S): I87.2 - Venous insufficiency (chronic) (peripheral) (5) Delayed wound healing: CODE(S): T14.8XXD - Other injury of unspecified body region, subsequent encounter PLAN: Plan Debridement done as documented above, procedure was well-tolerated. Some improvement noted. Continue Aquacel and care max to all other ulcers. Change daily to twice daily depending on drainage. Continue mupirocin ointment as well. Continue use of compression stockings, leg elevation and exercise. Increased protein intake, protein supplements, zinc and vitamin C also recommended. Continue multivitamins. His questions were answered and was advised to call with any further questions or concerns. Follow-up in 2 weeks. This note was generated with [employer] dictation software. It may contain incorrect words, spelling, and punctuation that were not noted in checking the note before signing.
== END 2022-08-28 23:59 | disposition home or self-care (01) ==
LOC: WC 09:00
PROVIDERS: PCP Family Medicine; Visit Provider Internal Medicine
DX: I73.9 Peripheral vascular disease, unspecified (principal); L97.822 Non-pressure chronic ulcer of other part of left lower leg with fat layer exposed; L97.812 Non-pressure chronic ulcer of other part of right lower leg with fat layer exposed; L97.322 Non-pressure chronic ulcer of left ankle with fat layer exposed; I87.2 Venous insufficiency (chronic) (peripheral)
CPT/HCPCS: 11042; 11045

== ENCOUNTER → 2022-08-29 | Outpatient (CLI) | payer BC, SELFPAY ==
--- NOTE | 2022-08-29 07:50 | VDLE_ITS ---
Reason For Study: swelling RIGHT LEFT CFV is compressible, spontaneous, phasic, GSV is normal. competent and demonstrates normal CFV is compressible, spontaneous, phasic, augmentation. competent, and demonstrates normal FV is compressible, spontaneous, phasic, augmentation. competent and demonstrates normal FV is compressible, spontaneous, phasic, augmentation. competent and demonstrates normal POP V is compressible, spontaneous, phasic, augmentation. competent and demonstrates normal POP V is compressible, spontaneous, phasic, augmentation. competent and demonstrates normal T/P Trunk is compressible. augmentation. PTV is compressible. T/P Trunk is compressible. RT PerV is compressible. PTV is compressible. GSV is absent. LT PerV is compressible. SSV is incompetent for greater than .5 GSV is absent. seconds. Prox SSV measures .68 x .66 cm. Prox SSV is absent. Dist SSV measures .29 Large cluster of varicose veins come off of x .35 cm and is incompetent for greater the prox SSV. Distal to this the SSV becomes than .5 seconds. smaller in caliber but remains incompetent ASV mid calf measures .4 x .49 cm and is for greater than .5 seconds. Dist SSV incompetent for greater than .5 seconds. measures .16 x .17 cm. Cluster of vaicose veins wraps around the ankle towards the pt's wound. Procedure This is a venous duplex using B-mode, color flow and spectral Doppler. Exam performed in department. The exam was diagnostic. VL/Venous Duplex US - Hector Extrem Interpretation Summary Deep veins of the bilateral lower extremities are patent and compressible segme ntally. There is no evidence of bilateral lower extremity deep vein thrombosis. The left great saphenous vein is absent The right great saphenous vein is absent. The right small saphenous vein is positive for reflux with associated varicose veins. The left small saphenous vein is absent proximally, and positive for reflux dis tally. The left accessroy saphenous is positive for reflux. Ordering Physician: Christian Doty Performed By: Howard Franco, RVT
== END | disposition home or self-care (01) ==
LOC: CVS 07:49
PROVIDERS: PCP Family Medicine; Visit Provider Surgery Trauma Surgery
DX: I87.8 Other specified disorders of veins (principal); R60.0 Localized edema
CPT/HCPCS: 93970

== ENCOUNTER 2022-09-14 09:00 | Outpatient (RCR) | payer BC, SELFPAY ==
[2022-08-29 00:24] VITALS: BP 150/80; PULSE 85; RESP 16; TEMP 35.9; O2SAT 99; BMI 31.4
[2022-08-31 08:58] VITALS: BP 166/70; PULSE 84; RESP 18; TEMP 35.6; BMI 31.4
--- NOTE | 2022-08-31 12:32 | PN.PCM_ITS ---
History of Present Illness Date of Service: 08/31/22 Chief Complaint: ulcers to the left lower leg History of Wound: This is a 54-year-old male presents to wound healing center with a long-standing history of chronic venous insufficiency, chronic venous hypertension, lower extremity edema, lower extremity pain, and chronic left lower extremity ulcer. 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 He is currently wearing graduated compression stockings which are documented to be 20-30 mmHg compression and these are thigh high. He reports great compliance with use. He is also had previous arterial work-up with no intervention recommended by letter, his vascular surgeon. He denies taking nutritional supplementation. He saw dermatology and had a biopsy of the ulcer site. He also was previously treated by infectious disease for various contaminations and infections. He is not antibiotics at this time nor does he have any redness or odor coming from the wound. He denies fever, chill, nausea, vomiting, loss of appetite. 05/18/22: Mr. Jeronimo presents with a new right lower extremity ulceration. He states that this has been present for months and he has been trying to manage it at home without any significant improvement. Opened up months ago, no known precipitating factor. Has been applying wound dressings without any significant improvement. He reports increased drainage. Denies significant pain. No chills, fever or feeling of unwell. Progress of Wound: Right lower extremity improving. Left superior ulcer stays healed. No new concerns at this time. Objective Data Objective Data Vital Signs: Vital Signs Temp Pulse Resp BP Pulse Ox 96.1 F L 84 18 166/70 H 99 08/31/22 08:58 08/31/22 08:58 08/31/22 08:58 08/31/22 08:58 08/29/22 00:24 Body Mass Index (BMI) 31.4 Charges/Coding Procedures Integumentary 111xxx-113xx: 31497 Lakeisha subq tissue 20 sq cm/< Add On Codes: 57149 Lakeisha subq tissue add-on (x1 additional square centimeter debrided, please refer to clinical note) Physical Exam Const alert, oriented x3 and no apparent distress General Appearance: cooperative and comfortable Orientation / Consciousness: awake HEENT normocephalic Head and Scalp: normal to inspection, normocephalic and atraumatic Face and Sinus: normal facial exam Eyes EOMs intact bilaterally Neck full ROM and supple General: normal visual inspection Resp normal respiratory effort Effort and Inspection: able to speak in complete sentences GI non-tender Extremity normal to inspection General Extremity: edema Skin Wounds: wounds noted Neuro oriented x3 and CN's II-XII intact bilaterally Psych mental status grossly normal Appearance: grossly normal Debridement Note Debridement Note Wound debrided: Right lower extremity Type of Debridement: Excisional debridement Anesthesia Used: 4% Lidocaine Solution Depth: Down to and including healthy tissue and in the subcutaneous layer Percentage of wound debrided: 100 Instrument Used: 5mm curette Tissue Removed: Slough and devitalized tissue Severity: Fat Layer Exposed Amount of bleeding with debridement: Mild Bleeding Controlled with: Pressure Patient tolerated procedure: Patient tolerated procedure well Post-Debridement Measurements and Additional Note: Post-Debridement Measurements/Treatment KIMBERLY - Nurse 1 - General Ulcer Assessment Start: 08/31/22 08:58 Freq: Status: Active Protocol: SHANTA Activity Type Activity Date Activity User E-sign Co-sign Detail Recorded Client Recorded Date Recorded By Document 08/31/22 08:58 TIFFANY [id number] 08/31/22 09:14 DL 08/31/22 08:58 - Today's Visit Information Type of service Follow-up Visit (Physician/CABIN SERVICE AGENT ) Arrival Mode Ambulatory Transfer Assistance None Patient Identification Verified (Name & Yes ) Patient Requires Transmission-Based No Precautions Height and Weight Body Mass Index (BMI) 31.4 BMI Classification Obese Vital Signs Temperature (97.8 F-99.1 F) 96.1 F L Temperature Source Temporal Pulse Rate (60-100) 84 Pulse Location Monitor Respiratory Rate (12-18) 18 Respiratory rate source Observation Blood Pressure (90/60-120/80) 166/70 H Blood Pressure Mean (mm Hg) 102 Source Monitor History Since Last Visit- (Skip if this is Patient's initial visit) Have you changed medications since your No last visit? Any new allergies or adverse reactions No Had a fall/change in ADL's that may No increase risk of falls Signs or symptoms of abuse and/or No neglect since last visit Have you been in the hospital since your No last visit? Has dressing in place as prescribed Yes Has compression in place as prescribed Yes Has offloadiing in place as prescribed N/A Pain Scale: 0-10 Numeric Is Patient Pain Free? Yes WC - Nurse 1 - General Ulcer Measurement Start: 08/31/22 08:58 Freq: Status: Active Protocol: Activity Type Activity Date Activity User E-sign Co-sign Detail Recorded Client Recorded Date Recorded By Document 08/31/22 08:58 DL [id number] 08/31/22 09:14 DL 08/31/22 08:58 Wound Center Nurse 1 #12 Medial Superior LLE -Current Size (cm) - Length 0.1 -Current Size (cm) - Width 0.1 -Current Size (cm) - Depth 0.1 -Total Square Cm 0.01 -Photo Taken Yes -Exudate Amt None Present -Wound Margin Thickened -Granulation Amt Large (67-100%) -Granulation Quality Pale,[place] -Necrosis Amt None Present (0 %) -Structure Exposed N/A -Texture (Ara-wound Skin Appearance) Scarring -Moisture (Ara-wound Skin Appearance) Dry/Scaly -Color (Ara-wound Skin Appearance) Hemosiderin Staining -Temperature (Ara-wound Skin No Abnormality Appearance) (Pt Warm) -Tenderness on Palpation (Ara-wound No Skin Appearance) -Ulcer Cleansing Soap and Water -Foul Odor after Cleansing No -Anesthetic Used 4% Lidocaine Solution #15 R Med Ankle -Current Size (cm) - Length 5.8 -Current Size (cm) - Width 2.2 -Current Size (cm) - Depth 0.2 -Total Square Cm 12.76 -Photo Taken Yes -Exudate Amt Medium -Exudate Type Serosanguineous -Wound Margin Distinct, Outline Attached -Granulation Amt Large (67-100%) -Granulation Quality Red -Necrosis Amt Small (1-33%) -Necrotic Tissue Type Adherent Slough -Structure Exposed N/A -Texture (Ara-wound Skin Appearance) Scarring -Moisture (Ara-wound Skin Appearance) Dry/Scaly -Color (Ara-wound Skin Appearance) Hemosiderin Staining -Temperature (Ara-wound Skin No Abnormality Appearance) (Pt Warm) -Tenderness on Palpation (Ara-wound No Skin Appearance) -Ulcer Cleansing Soap and Water -Foul Odor after Cleansing No -Anesthetic Used 4% Lidocaine Solution #11 Medial Inferior LLE -Current Size (cm) - Length 3 -Current Size (cm) - Width 2.2 -Current Size (cm) - Depth 0.2 -Total Square Cm 6.6 -Photo Taken Yes -Exudate Amt Medium -Exudate Type Serosanguineous -Wound Margin Distinct, Outline Attached -Granulation Amt Large (67-100%) -Granulation Quality Red -Necrosis Amt Small (1-33%) -Necrotic Tissue Type Adherent Slough -Structure Exposed N/A -Texture (Ara-wound Skin Appearance) Scarring -Moisture (Ara-wound Skin Appearance) Dry/Scaly -Color (Ara-wound Skin Appearance) Hemosiderin Staining -Temperature (Ara-wound Skin No Abnormality Appearance) (Pt Warm) -Tenderness on Palpation (Ara-wound No Skin Appearance) -Ulcer Cleansing Soap and Water -Foul Odor after Cleansing No -Anesthetic Used 4% Lidocaine Solution #10 Left Medial Ankle -Current Size (cm) - Length 4.8 -Current Size (cm) - Width 3.4 -Current Size (cm) - Depth 0.2 -Total Square Cm 16.32 -Photo Taken Yes -Exudate Amt Medium -Exudate Type Serosanguineous -Wound Margin Distinct, Outline Attached -Granulation Amt Medium (34-66%) -Granulation Quality Red -Necrosis Amt Medium (34-66%) -Necrotic Tissue Type Adherent Slough -Structure Exposed N/A -Texture (Ara-wound Skin Appearance) Scarring -Color (Ara-wound Skin Appearance) Hemosiderin Staining -Temperature (Ara-wound Skin No Abnormality Appearance) (Pt Warm) -Tenderness on Palpation (Ara-wound No Skin Appearance) -Ulcer Cleansing Soap and Water -Foul Odor after Cleansing No -Anesthetic Used 4% Lidocaine Solution Right Calf (cm) 36.5 Right Ankle (cm) 21.5 Left Calf (cm) 34.5 Left Ankle (cm) 22.7 WC - Nurse 2 - General Ulcer CM Notes Start: 08/31/22 08:58 Freq: Status: Active Protocol: Activity Type Activity Date Activity User E-sign Co-sign Detail Recorded Client Recorded Date Recorded By Document 08/31/22 09:29 MW [id number] 08/31/22 09:42 MW 08/31/22 09:29 Wound Center Nurse 2 #12 Medial Superior LLE -Time 09:33 -Correct Patient Yes -Correct Side, Site, Position Yes -Correct Procedure Yes -Procedure Performed No -Post Debridement (cm) - Length 0 -Post Debridement (cm) - Width 0 -Post Debridement (cm) - Depth 0 -Total Square (Post) (cm) 0 -Tunneling No -Undermining/Tunneling No -Circular Undermining No -Wound/Ulcer Outcome Healed- Epithelialized -Ulcer Cleansing Rinsed/ Irrigated with Saline -Foul Odor after Cleansing No -Bioengineered Tissue No #15 R Med Ankle -Time 09:32 -Correct Patient Yes -Correct Side, Site, Position Yes -Correct Procedure Yes -Procedure Performed Yes -Type of Procedure Debridement -Clinical Debridement Subcutaneous -Tissue Removed Subcutaneous -Post Debridement (cm) - Length 5.8 -Post Debridement (cm) - Width 2.5 -Post Debridement (cm) - Depth 0.1 -Total Square (Post) (cm) 14.50 -Area of Debridement (cm) - Length 5.8 -Area of Debridement (cm) - Width 2.5 -Total Square (Area) (cm) 14.50 -Tunneling No -Undermining/Tunneling No -Circular Undermining No -Wound/Ulcer Outcome Not Healed -Ulcer Cleansing Rinsed/ Irrigated with Saline -Foul Odor after Cleansing No -Bioengineered Tissue No -Bleeding Controlled with Pressure -Treatment Response Procedure Tolerated Well -Offloading No -Debridement - Subq, 1st 20sq cm Yes #11 Medial Inferior LLE -Time 09:33 -Correct Patient Yes -Correct Side, Site, Position Yes -Correct Procedure Yes -Procedure Performed Yes -Type of Procedure Debridement -Clinical Debridement Subcutaneous -Tissue Removed Subcutaneous -Post Debridement (cm) - Length 3.0 -Post Debridement (cm) - Width 1.9 -Post Debridement (cm) - Depth 0.1 -Total Square (Post) (cm) 5.70 -Area of Debridement (cm) - Length 3.0 -Area of Debridement (cm) - Width 1.9 -Total Square (Area) (cm) 5.70 -Tunneling No -Undermining/Tunneling No -Circular Undermining No -Wound/Ulcer Outcome Not Healed -Ulcer Cleansing Rinsed/ Irrigated with Saline -Foul Odor after Cleansing No -Bioengineered Tissue No -Bleeding Controlled with Pressure -Treatment Response Procedure Tolerated Well -Offloading No -Debridement - Subq, 1st 20sq cm No #10 Left Medial Ankle -Time 09:33 -Correct Patient Yes -Correct Side, Site, Position Yes -Correct Procedure Yes -Procedure Performed Yes -Type of Procedure Debridement -Clinical Debridement Subcutaneous -Tissue Removed Subcutaneous -Post Debridement (cm) - Length 4.0 -Post Debridement (cm) - Width 3.1 -Post Debridement (cm) - Depth 0.2 -Total Square (Post) (cm) 12.40 -Area of Debridement (cm) - Length 4.0 -Area of Debridement (cm) - Width 3.1 -Total Square (Area) (cm) 12.40 -Tunneling No -Undermining/Tunneling No -Circular Undermining No -Wound/Ulcer Outcome Not Healed -Ulcer Cleansing Rinsed/ Irrigated with Saline -Foul Odor after Cleansing No -Bioengineered Tissue No -Bleeding Controlled with Pressure -Treatment Response Procedure Tolerated Well -Offloading No -Debridement - Subq, 1st 20sq cm No Pain Scale: 0-10 Numeric Is Patient Pain Free? Yes Additional Wound Wound debrided: Left lower extremity medial ankle Type of Debridement: Excisional debridement Anesthesia Used: 4% Lidocaine Solution Depth: Down to and including healthy tissue and in the subcutaneous layer Percentage of wound debrided: 100 Instrument Used: 5mm curette Tissue Removed: Slough and devitalized tissue Severity: Fat Layer Exposed Amount of bleeding with debridement: Mild Bleeding Controlled with: Pressure Patient tolerated procedure: Patient tolerated procedure well Additional Wound Wound debrided: Left lower extremity inferior Type of Debridement: Excisional debridement Anesthesia Used: 4% Lidocaine Solution Depth: Down to and including healthy tissue and in the subcutaneous layer Percentage of wound debrided: 100 Instrument Used: 5mm curette Tissue Removed: Slough and devitalized tissue Severity: Fat Layer Exposed Amount of bleeding with debridement: Mild Bleeding Controlled with: Pressure Patient tolerated procedure: Patient tolerated procedure well Assessment/Plan Assessment/Plan (1) Ulcer of left lower extremity with fat layer exposed: CODE(S): L97.922 - Non-pressure chronic ulcer of unspecified part of left lower leg with fat layer exposed (2) Ulcer of right lower extremity with fat layer exposed: CODE(S): L97.912 - Non-pressure chronic ulcer of unspecified part of right lower leg with fat layer exposed (3) PVD (peripheral vascular disease): CODE(S): I73.9 - Peripheral vascular disease, unspecified (4) Chronic venous insufficiency: CODE(S): I87.2 - Venous insufficiency (chronic) (peripheral) (5) Delayed wound healing: CODE(S): T14.8XXD - Other injury of unspecified body region, subsequent encounter PLAN: Plan Debridement done as documented above, procedure was well-tolerated. Some improvement noted. Continue Aquacel and care max to all other ulcers. Change daily to twice daily depending on drainage. Continue mupirocin ointment as well. Continue use of compression stockings, leg elevation and exercise. Increased protein intake, protein supplements, zinc and vitamin C also recommended. Continue multivitamins. His questions were answered and was advised to call with any further questions or concerns. Follow-up in 2 weeks. This note was generated with [employer] dictation software. It may contain incorrect words, spelling, and punctuation that were not noted in checking the note before signing.
[2022-09-14 09:41] VITALS: BP 155/113; PULSE 84; RESP 20; TEMP 36.3; BMI 31.4
--- NOTE | 2022-09-14 10:30 | PN.PCM_ITS ---
History of Present Illness Date of Service: 09/14/22 Chief Complaint: ulcers to the left lower leg History of Wound: This is a 54-year-old male presents to wound healing center with a long-standing history of chronic venous insufficiency, chronic venous hypertension, lower extremity edema, lower extremity pain, and chronic left lower extremity ulcer. 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 He is currently wearing graduated compression stockings which are documented to be 20-30 mmHg compression and these are thigh high. He reports great compliance with use. He is also had previous arterial work-up with no intervention recommended by letter, his vascular surgeon. He denies taking nutritional supplementation. He saw dermatology and had a biopsy of the ulcer site. He also was previously treated by infectious disease for various contaminations and infections. He is not antibiotics at this time nor does he have any redness or odor coming from the wound. He denies fever, chill, nausea, vomiting, loss of appetite. 05/18/22: Mr. Jeronimo presents with a new right lower extremity ulceration. He states that this has been present for months and he has been trying to manage it at home without any significant improvement. Opened up months ago, no known precipitating factor. Has been applying wound dressings without any significant improvement. He reports increased drainage. Denies significant pain. No chills, fever or feeling of unwell. Progress of Wound: Some improvement in both ulcerations noted this week. No acute concerns at this time. Objective Data Objective Data Vital Signs: Vital Signs Temp Pulse Resp BP Pulse Ox 97.4 F L 84 20 H 155/113 H 99 09/14/22 09:41 09/14/22 09:41 09/14/22 09:41 09/14/22 09:41 08/29/22 00:24 Body Mass Index (BMI) 31.4 Charges/Coding Procedures Integumentary 111xxx-113xx: 23588 Lakeisha subq tissue 20 sq cm/< Add On Codes: 56041 Lakeisha subq tissue add-on Physical Exam Const alert, oriented x3 and no apparent distress General Appearance: cooperative and comfortable Orientation / Consciousness: awake HEENT normocephalic Head and Scalp: normal to inspection, normocephalic and atraumatic Face and Sinus: normal facial exam Eyes EOMs intact bilaterally Neck full ROM and supple General: normal visual inspection Resp normal respiratory effort Effort and Inspection: able to speak in complete sentences GI non-tender Extremity normal to inspection General Extremity: edema Skin Wounds: wounds noted Neuro oriented x3 and CN's II-XII intact bilaterally Psych mental status grossly normal Appearance: grossly normal Debridement Note Debridement Note Wound debrided: Right lower extremity Type of Debridement: Excisional debridement Anesthesia Used: 4% Lidocaine Solution Depth: Down to and including healthy tissue and in the subcutaneous layer Percentage of wound debrided: 100 Instrument Used: 5mm curette Tissue Removed: Slough and devitalized tissue Severity: Fat Layer Exposed Amount of bleeding with debridement: Mild Bleeding Controlled with: Pressure Patient tolerated procedure: Patient tolerated procedure well Post-Debridement Measurements and Additional Note: Post-Debridement Measurements/Treatment - Nurse 1 - General Ulcer Assessment Start: 08/31/22 08:58 Freq: Status: Active Protocol: SHANTA Activity Type Activity Date Activity User E-sign Co-sign Detail Recorded Client Recorded Date Recorded By Document 08/31/22 08:58 [id number] 08/31/22 09:14 DL Document 09/14/22 09:41 DL [id number] 09/14/22 09:49 DL 08/31/22 09/14/22 08:58 09:41 - Today's Visit Information Type of service Follow-up Visit Follow-up Visit (Physician/TRANSITION RN (Physician/TRANSITION RN ) ) Arrival Mode Ambulatory Ambulatory Transfer Assistance None None Patient Identification Verified (Name & Yes Yes ) Patient Requires Transmission-Based No No Precautions Height and Weight Body Mass Index (BMI) 31.4 31.4 BMI Classification Obese Obese Vital Signs Temperature (97.8 F-99.1 F) 96.1 F L 97.4 F L Temperature Source Temporal Temporal Pulse Rate (60-100) 84 84 Pulse Location Monitor Monitor Respiratory Rate (12-18) 18 20 H Respiratory rate source Observation Observation Blood Pressure (90/60-120/80) 166/70 H 155/113 H Blood Pressure Mean (mm Hg) 102 127 Source Monitor Monitor History Since Last Visit- (Skip if this is Patient's initial visit) Have you changed medications since your No No last visit? Any new allergies or adverse reactions No No Had a fall/change in ADL's that may No No increase risk of falls Signs or symptoms of abuse and/or No No neglect since last visit Have you been in the hospital since your No No last visit? Has dressing in place as prescribed Yes Yes Has compression in place as prescribed Yes Yes Has offloadiing in place as prescribed N/A N/A Experienced any changes in pain level or No management Pain Scale: 0-10 Numeric Is Patient Pain Free? Yes Yes WC - Nurse 1 - General Ulcer Measurement Start: 08/31/22 08:58 Freq: Status: Active Protocol: Activity Type Activity Date Activity User E-sign Co-sign Detail Recorded Client Recorded Date Recorded By Document 08/31/22 08:58 DL [id number] 08/31/22 09:14 DL Document 09/14/22 09:41 DL [id number] 09/14/22 09:49 DL 08/31/22 09/14/22 08:58 09:41 Wound Center Nurse 1 #12 Medial Superior LLE -Current Size (cm) - Length 0.1 -Current Size (cm) - Width 0.1 -Current Size (cm) - Depth 0.1 -Total Square Cm 0.01 -Photo Taken Yes -Exudate Amt None Present -Wound Margin Thickened -Granulation Amt Large (67-100%) -Granulation Quality Pale,Tolar -Necrosis Amt None Present (0 %) -Structure Exposed N/A -Texture (Ara-wound Skin Appearance) Scarring -Moisture (Ara-wound Skin Appearance) Dry/Scaly -Color (Ara-wound Skin Appearance) Hemosiderin Staining -Temperature (Ara-wound Skin No Abnormality Appearance) (Pt Warm) -Tenderness on Palpation (Ara-wound No Skin Appearance) -Ulcer Cleansing Soap and Water -Foul Odor after Cleansing No -Anesthetic Used 4% Lidocaine Solution #15 R Med Ankle -Current Size (cm) - Length 5.8 0.1 -Current Size (cm) - Width 2.2 0.1 -Current Size (cm) - Depth 0.2 0.1 -Total Square Cm 12.76 0.01 -Photo Taken Yes No -Epithelialization None Present -Exudate Amt Medium Medium -Exudate Type Serosanguineous Serosanguineous -Wound Margin Distinct, Distinct, Outline Outline Attached Attached -Granulation Amt Large (67-100%) Large (67-100%) -Granulation Quality Red Red -Necrosis Amt Small (1-33%) Small (1-33%) -Necrotic Tissue Type Adherent Slough Adherent Slough -Structure Exposed N/A N/A -Texture (Ara-wound Skin Appearance) Scarring Scarring -Moisture (Ara-wound Skin Appearance) Dry/Scaly Dry/Scaly -Color (Ara-wound Skin Appearance) Hemosiderin Hemosiderin Staining Staining -Temperature (Ara-wound Skin No Abnormality No Abnormality Appearance) (Pt Warm) (Pt Warm) -Tenderness on Palpation (Ara-wound No Yes Skin Appearance) -Ulcer Cleansing Soap and Water Not Cleansed -Foul Odor after Cleansing No No -Anesthetic Used 4% Lidocaine 4% Lidocaine Solution Solution #11 Medial Inferior LLE -Current Size (cm) - Length 3 0.1 -Current Size (cm) - Width 2.2 0.1 -Current Size (cm) - Depth 0.2 0.1 -Total Square Cm 6.6 0.01 -Photo Taken Yes No -Exudate Amt Medium Medium -Exudate Type Serosanguineous Serosanguineous -Wound Margin Distinct, Distinct, Outline Outline Attached Attached -Granulation Amt Large (67-100%) Large (67-100%) -Granulation Quality Red Red -Necrosis Amt Small (1-33%) Small (1-33%) -Necrotic Tissue Type Adherent Slough Adherent Slough -Structure Exposed N/A N/A -Texture (Ara-wound Skin Appearance) Scarring Localized Edema -Moisture (Ara-wound Skin Appearance) Dry/Scaly Dry/Scaly -Color (Ara-wound Skin Appearance) Hemosiderin Hemosiderin Staining Staining -Temperature (Ara-wound Skin No Abnormality No Abnormality Appearance) (Pt Warm) (Pt Warm) -Tenderness on Palpation (Ara-wound No No Skin Appearance) -Ulcer Cleansing Soap and Water Soap and Water -Foul Odor after Cleansing No No -Anesthetic Used 4% Lidocaine 4% Lidocaine Solution Solution #10 Left Medial Ankle -Current Size (cm) - Length 4.8 0.1 -Current Size (cm) - Width 3.4 0.1 -Current Size (cm) - Depth 0.2 0.1 -Total Square Cm 16.32 0.01 -Photo Taken Yes No -Exudate Amt Medium Medium -Exudate Type Serosanguineous Serosanguineous -Wound Margin Distinct, Distinct, Outline Outline Attached Attached -Granulation Amt Medium (34-66%) Large (67-100%) -Granulation Quality Red Red -Necrosis Amt Medium (34-66%) Small (1-33%) -Necrotic Tissue Type Adherent Slough Adherent Slough -Structure Exposed N/A N/A -Texture (Ara-wound Skin Appearance) Scarring Scarring -Moisture (Ara-wound Skin Appearance) Dry/Scaly -Color (Ara-wound Skin Appearance) Hemosiderin Hemosiderin Staining Staining -Temperature (Ara-wound Skin No Abnormality No Abnormality Appearance) (Pt Warm) (Pt Warm) -Tenderness on Palpation (Ara-wound No No Skin Appearance) -Ulcer Cleansing Soap and Water Soap and Water -Foul Odor after Cleansing No No -Anesthetic Used 4% Lidocaine 4% Lidocaine Solution Solution Right Calf (cm) 36.5 35.5 Right Ankle (cm) 21.5 21.8 Left Calf (cm) 34.5 35 Left Ankle (cm) 22.7 23 WC - Nurse 2 - General Ulcer CM Notes Start: 08/31/22 08:58 Freq: Status: Active Protocol: Activity Type Activity Date Activity User E-sign Co-sign Detail Recorded Client Recorded Date Recorded By Document 08/31/22 09:29 MW [id number] 08/31/22 09:42 MW Edit Result 08/31/22 09:29 MW (1) [id number] 09/01/22 07:18 PL Document 09/14/22 10:17 MW [id number] 09/14/22 10:28 MW (1) #15 R Med Ankle - Debridement, SubQ, ea addt'l 20sq cm => 1 or part thereof 08/31/22 09/14/22 09:29 10:17 Wound Center Nurse 2 #12 Medial Superior LLE -Time 09:33 -Correct Patient Yes -Correct Side, Site, Position Yes -Correct Procedure Yes -Procedure Performed No -Post Debridement (cm) - Length 0 -Post Debridement (cm) - Width 0 -Post Debridement (cm) - Depth 0 -Total Square (Post) (cm) 0 -Tunneling No -Undermining/Tunneling No -Circular Undermining No -Wound/Ulcer Outcome Healed- Epithelialized -Ulcer Cleansing Rinsed/ Irrigated with Saline -Foul Odor after Cleansing No -Bioengineered Tissue No #15 R Med Ankle -Time 09:32 10:17 -Correct Patient Yes Yes -Correct Side, Site, Position Yes Yes -Correct Procedure Yes Yes -Procedure Performed Yes Yes -Type of Procedure Debridement Debridement -Clinical Debridement Subcutaneous Subcutaneous -Tissue Removed Subcutaneous Subcutaneous -Post Debridement (cm) - Length 5.8 5.5 -Post Debridement (cm) - Width 2.5 1.5 -Post Debridement (cm) - Depth 0.1 0.1 -Total Square (Post) (cm) 14.50 8.25 -Area of Debridement (cm) - Length 5.8 5.5 -Area of Debridement (cm) - Width 2.5 1.5 -Total Square (Area) (cm) 14.50 8.25 -Tunneling No No -Undermining/Tunneling No No -Circular Undermining No No -Wound/Ulcer Outcome Not Healed Not Healed -Ulcer Cleansing Rinsed/ Rinsed/ Irrigated with Irrigated with Saline Saline -Foul Odor after Cleansing No No -Bioengineered Tissue No No -Bleeding Controlled with Pressure Pressure -Treatment Response Procedure Procedure Tolerated Well Tolerated Well -Offloading No No -Debridement - Subq, 1st 20sq cm Yes Yes -Debridement, SubQ, ea addt'l 20sq cm 1 1 or part thereof #11 Medial Inferior LLE -Time 09:33 10:18 -Correct Patient Yes Yes -Correct Side, Site, Position Yes Yes -Correct Procedure Yes Yes -Procedure Performed Yes Yes -Type of Procedure Debridement Debridement -Clinical Debridement Subcutaneous Subcutaneous -Tissue Removed Subcutaneous Subcutaneous -Post Debridement (cm) - Length 3.0 2.8 -Post Debridement (cm) - Width 1.9 2.0 -Post Debridement (cm) - Depth 0.1 0.1 -Total Square (Post) (cm) 5.70 5.60 -Area of Debridement (cm) - Length 3.0 2.8 -Area of Debridement (cm) - Width 1.9 2.0 -Total Square (Area) (cm) 5.70 5.60 -Tunneling No No -Undermining/Tunneling No No -Circular Undermining No No -Wound/Ulcer Outcome Not Healed Not Healed -Ulcer Cleansing Rinsed/ Rinsed/ Irrigated with Irrigated with Saline Saline -Foul Odor after Cleansing No No -Bioengineered Tissue No No -Bleeding Controlled with Pressure Pressure -Treatment Response Procedure Procedure Tolerated Well Tolerated Well -Offloading No No -Debridement - Subq, 1st 20sq cm No No #10 Left Medial Ankle -Time 09:33 10:18 -Correct Patient Yes Yes -Correct Side, Site, Position Yes Yes -Correct Procedure Yes Yes -Procedure Performed Yes Yes -Type of Procedure Debridement Debridement -Clinical Debridement Subcutaneous Subcutaneous -Tissue Removed Subcutaneous Subcutaneous -Post Debridement (cm) - Length 4.0 3.8 -Post Debridement (cm) - Width 3.1 3.0 -Post Debridement (cm) - Depth 0.2 0.2 -Total Square (Post) (cm) 12.40 11.40 -Area of Debridement (cm) - Length 4.0 3.8 -Area of Debridement (cm) - Width 3.1 3.0 -Total Square (Area) (cm) 12.40 11.40 -Tunneling No No -Undermining/Tunneling No -Circular Undermining No No -Wound/Ulcer Outcome Not Healed Not Healed -Ulcer Cleansing Rinsed/ Rinsed/ Irrigated with Irrigated with Saline Saline -Foul Odor after Cleansing No No -Bioengineered Tissue No No -Bleeding Controlled with Pressure Pressure -Treatment Response Procedure Procedure Tolerated Well Tolerated Well -Offloading No No -Debridement - Subq, 1st 20sq cm No Yes Pain Scale: 0-10 Numeric Is Patient Pain Free? Yes Yes Additional Wound Wound debrided: Left lower extremity medial ankle Type of Debridement: Excisional debridement Anesthesia Used: 4% Lidocaine Solution Depth: Down to and including healthy tissue and in the subcutaneous layer Percentage of wound debrided: 100 Instrument Used: 5mm curette Tissue Removed: Slough and devitalized tissue Severity: Fat Layer Exposed Amount of bleeding with debridement: Mild Bleeding Controlled with: Pressure Patient tolerated procedure: Patient tolerated procedure well Additional Wound Wound debrided: Left lower extremity inferior Type of Debridement: Excisional debridement Anesthesia Used: 4% Lidocaine Solution Depth: Down to and including healthy tissue and in the subcutaneous layer Percentage of wound debrided: 100 Instrument Used: 5mm curette Tissue Removed: Slough and devitalized tissue Severity: Fat Layer Exposed Amount of bleeding with debridement: Mild Bleeding Controlled with: Pressure Assessment/Plan Assessment/Plan (1) Ulcer of left lower extremity with fat layer exposed: CODE(S): L97.922 - Non-pressure chronic ulcer of unspecified part of left lower leg with fat layer exposed (2) Ulcer of right lower extremity with fat layer exposed: CODE(S): L97.912 - Non-pressure chronic ulcer of unspecified part of right lower leg with fat layer exposed (3) PVD (peripheral vascular disease): CODE(S): I73.9 - Peripheral vascular disease, unspecified (4) Chronic venous insufficiency: CODE(S): I87.2 - Venous insufficiency (chronic) (peripheral) (5) Delayed wound healing: CODE(S): T14.8XXD - Other injury of unspecified body region, subsequent encounter PLAN: Plan Debridement done as documented above, procedure was well-tolerated. Some improvement noted. Continue Aquacel and care max to all other ulcers. Change daily to twice daily depending on drainage. Continue mupirocin ointment as well. Continue use of compression stockings, leg elevation and exercise. Increased protein intake, protein supplements, zinc and vitamin C also recommended. Continue multivitamins. His questions were answered and was advised to call with any further questions or concerns. Follow-up in 2 weeks. This note was generated with [employer] dictation software. It may contain incorrect words, spelling, and punctuation that were not noted in checking the note before signing.
== END 2022-09-27 23:59 | disposition home or self-care (01) ==
LOC: WC 09:00
PROVIDERS: PCP Family Medicine; Visit Provider Internal Medicine
DX: I73.9 Peripheral vascular disease, unspecified (principal); L97.812 Non-pressure chronic ulcer of other part of right lower leg with fat layer exposed; L97.322 Non-pressure chronic ulcer of left ankle with fat layer exposed; L97.822 Non-pressure chronic ulcer of other part of left lower leg with fat layer exposed; I87.2 Venous insufficiency (chronic) (peripheral); R60.0 Localized edema
CPT/HCPCS: 11042; 11045

== ENCOUNTER 2022-10-26 09:00 | Outpatient (RCR) | payer BC, SELFPAY ==
[2022-09-28 00:23] VITALS: BP 155/113; PULSE 84; RESP 20; TEMP 36.3; O2SAT 99; BMI 31.4
[2022-09-28 08:45] VITALS: BP 139/78; PULSE 82; RESP 16; TEMP 35.9; BMI 31.4
--- NOTE | 2022-09-28 09:56 | PN.PCM_ITS ---
History of Present Illness Date of Service: 09/28/22 Chief Complaint: ulcers to the left lower leg History of Wound: This is a 54-year-old male presents to wound healing center with a long-standing history of chronic venous insufficiency, chronic venous hypertension, lower extremity edema, lower extremity pain, and chronic left lower extremity ulcer. 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 He is currently wearing graduated compression stockings which are documented to be 20-30 mmHg compression and these are thigh high. He reports great compliance with use. He is also had previous arterial work-up with no intervention recommended by letter, his vascular surgeon. He denies taking nutritional supplementation. He saw dermatology and had a biopsy of the ulcer site. He also was previously treated by infectious disease for various contaminations and infections. He is not antibiotics at this time nor does he have any redness or odor coming from the wound. He denies fever, chill, nausea, vomiting, loss of appetite. 05/18/22: Mr. Jeronimo presents with a new right lower extremity ulceration. He states that this has been present for months and he has been trying to manage it at home without any significant improvement. Opened up months ago, no known precipitating factor. Has been applying wound dressings without any significant improvement. He reports increased drainage. Denies significant pain. No chills, fever or feeling of unwell. Progress of Wound: No new concerns at this time. Right lower extremity continues to make good progress. Some improvement on the left as well. Objective Data Objective Data Vital Signs: Vital Signs Temp Pulse Resp BP Pulse Ox O2 Del Method 96.7 F L 82 16 139/78 H 99 Room Air 09/28/22 08:45 09/28/22 08:45 09/28/22 08:45 09/28/22 08:45 09/28/22 00:23 09/28/22 08:45 Oxygen Delivery Method Room Air Body Mass Index (BMI) 31.4 Charges/Coding Procedures Integumentary 111xxx-113xx: 16208 Lakeisha subq tissue 20 sq cm/< Physical Exam Const alert, oriented x3 and no apparent distress General Appearance: cooperative and comfortable Orientation / Consciousness: awake HEENT normocephalic Head and Scalp: normal to inspection, normocephalic and atraumatic Face and Sinus: normal facial exam Eyes EOMs intact bilaterally Neck full ROM and supple General: normal visual inspection Resp normal respiratory effort Effort and Inspection: able to speak in complete sentences GI non-tender Extremity normal to inspection General Extremity: edema Skin Wounds: wounds noted Neuro oriented x3 and CN's II-XII intact bilaterally Psych mental status grossly normal Appearance: grossly normal Debridement Note Debridement Note Wound debrided: Right lower extremity (medial ankle) Type of Debridement: Excisional debridement Anesthesia Used: 4% Lidocaine Solution Depth: Down to and including healthy tissue and in the subcutaneous layer Percentage of wound debrided: 100 Instrument Used: 5mm curette Tissue Removed: Slough and devitalized tissue Severity: Fat Layer Exposed Amount of bleeding with debridement: Mild Bleeding Controlled with: Pressure Patient tolerated procedure: Patient tolerated procedure well Post-Debridement Measurements and Additional Note: Post-Debridement Measurements/Treatment - Nurse 1 - General Ulcer Assessment Start: 09/28/22 08:45 Freq: Status: Active Protocol: SHANTA Activity Type Activity Date Activity User E-sign Co-sign Detail Recorded Client Recorded Date Recorded By Document 09/28/22 08:45 [facility] [id number] 09/28/22 08:54 [facility] 09/28/22 08:45 - Today's Visit Information Type of service 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 Visit (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/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 ) Arrival Mode Ambulatory Transfer Assistance None Patient Identification Verified (Name & Yes ) Patient Requires Transmission-Based No Precautions Height and Weight Body Mass Index (BMI) 31.4 BMI Classification Obese Vital Signs Temperature (97.8 F-99.1 F) 96.7 F L Temperature Source Temporal Pulse Rate (60-100) 82 Pulse Location Monitor Respiratory Rate (12-18) 16 Respiratory rate source Observation Oxygen Delivery Method Room Air Blood Pressure (90/60-120/80) 139/78 H Blood Pressure Mean (mm Hg) 98 Source Monitor Position Sitting Blood Pressure Location Right Arm History Since Last Visit- (Skip if this is Patient's initial visit) Have you changed medications since your No last visit? Any new allergies or adverse reactions No Had a fall/change in ADL's that may No increase risk of falls Signs or symptoms of abuse and/or No neglect since last visit Have you been in the hospital since your No last visit? Has dressing in place as prescribed Yes Has compression in place as prescribed Yes Has offloadiing in place as prescribed N/A Experienced any changes in pain level or No management Left Footwear Regular Shoe Right Footwear Regular Shoe Pain Scale: 0-10 Numeric Is Patient Pain Free? Yes WC - Nurse 1 - General Ulcer Measurement Start: 09/28/22 08:45 Freq: Status: Active Protocol: Activity Type Activity Date Activity User E-sign Co-sign Detail Recorded Client Recorded Date Recorded By Document 09/28/22 08:45 [facility] [id number] 09/28/22 08:54 [facility] 09/28/22 08:45 Wound Center Nurse 1 #15 R Med Ankle -Combined with other wound No -Current Size (cm) - Length 5.2 -Current Size (cm) - Width 1 -Current Size (cm) - Depth 0.2 -Total Square Cm 5.2 -Date of Last Picture (Recall this 09/28/22 field) -Photo Taken Yes -Epithelialization Small 1-33% -Tunneling No -Undermining/Tunneling No -Circular Undermining No -Exudate Amt Medium -Exudate Type Serosanguineous -Wound Margin Distinct, Outline Attached -Granulation Amt Medium (34-66%) -Granulation Quality Red -Slough/Fibrin Yes -Necrosis Amt Medium (34-66%) -Necrotic Tissue Type Adherent Slough -Texture (Ara-wound Skin Appearance) Assessed, Scarring -Moisture (Ara-wound Skin Appearance) Assessed,Dry/ Scaly -Color (Ara-wound Skin Appearance) Assessed -Temperature (Ara-wound Skin No Abnormality Appearance) (Pt Warm) -Tenderness on Palpation (Ara-wound No Skin Appearance) -Ulcer Cleansing Soap and Water -Foul Odor after Cleansing No -Anesthetic Used 4% Lidocaine Solution #11 Medial Inferior LLE -Combined with other wound No -Current Size (cm) - Length 2.5 -Current Size (cm) - Width 2.2 -Current Size (cm) - Depth 0.1 -Total Square Cm 5.50 -Date of Last Picture (Recall this 09/28/22 field) -Photo Taken Yes -Epithelialization Small 1-33% -Tunneling No -Undermining/Tunneling No -Circular Undermining No -Exudate Amt Medium -Exudate Type Serosanguineous -Wound Margin Distinct, Outline Attached -Granulation Amt Large (67-100%) -Granulation Quality Red -Slough/Fibrin Yes -Necrosis Amt Small (1-33%) -Necrotic Tissue Type Adherent Slough -Texture (Ara-wound Skin Appearance) Assessed, Scarring -Moisture (Ara-wound Skin Appearance) Assessed,Dry/ Scaly -Color (Ara-wound Skin Appearance) Assessed, Hemosiderin Staining -Temperature (Ara-wound Skin No Abnormality Appearance) (Pt Warm) -Tenderness on Palpation (Ara-wound No Skin Appearance) -Ulcer Cleansing Soap and Water -Foul Odor after Cleansing No -Anesthetic Used 4% Lidocaine Solution #10 Left Medial Ankle -Combined with other wound No -Current Size (cm) - Length 4.9 -Current Size (cm) - Width 3 -Current Size (cm) - Depth 0.2 -Total Square Cm 14.7 -Date of Last Picture (Recall this 09/28/22 field) -Photo Taken Yes -Epithelialization Small 1-33% -Tunneling No -Undermining/Tunneling No -Circular Undermining No -Exudate Amt Medium -Exudate Type Serosanguineous -Wound Margin Distinct, Outline Attached -Granulation Amt Medium (34-66%) -Slough/Fibrin Yes -Necrosis Amt Medium (34-66%) -Necrotic Tissue Type Adherent Slough -Texture (Ara-wound Skin Appearance) Assessed, Scarring -Moisture (Ara-wound Skin Appearance) Assessed,Dry/ Scaly -Color (Ara-wound Skin Appearance) Assessed -Temperature (Ara-wound Skin No Abnormality Appearance) (Pt Warm) -Tenderness on Palpation (Ara-wound No Skin Appearance) -Ulcer Cleansing Soap and Water -Foul Odor after Cleansing No -Anesthetic Used 4% Lidocaine Solution Right Calf (cm) 35.4 Right Ankle (cm) 22.6 Left Calf (cm) 36.8 Left Ankle (cm) 22.3 WC - Nurse 2 - General Ulcer CM Notes Start: 09/28/22 08:45 Freq: Status: Active Protocol: Activity Type Activity Date Activity User E-sign Co-sign Detail Recorded Client Recorded Date Recorded By Document 09/28/22 09:09 [facility] [id number] 09/28/22 09:23 MW 09/28/22 09:09 Wound Center Nurse 2 #15 R Med Ankle -Time 09:09 -Correct Patient Yes -Correct Side, Site, Position Yes -Correct Procedure Yes -Procedure Performed Yes -Type of Procedure Debridement -Clinical Debridement Subcutaneous -Tissue Removed Subcutaneous -Post Debridement (cm) - Length 5.4 -Post Debridement (cm) - Width 0.6 -Post Debridement (cm) - Depth 0.1 -Total Square (Post) (cm) 3.24 -Area of Debridement (cm) - Length 5.4 -Area of Debridement (cm) - Width 0.6 -Total Square (Area) (cm) 3.24 -Tunneling No -Undermining/Tunneling No -Circular Undermining No -Wound/Ulcer Outcome Not Healed -Ulcer Cleansing Rinsed/ Irrigated with Saline -Foul Odor after Cleansing No -Bioengineered Tissue No -Bleeding Controlled with Pressure -Treatment Response Procedure Tolerated Well -Offloading No -Debridement - Subq, 1st 20sq cm Yes #11 Medial Inferior LLE -Time 09:09 -Correct Patient Yes -Correct Side, Site, Position Yes -Correct Procedure Yes -Procedure Performed Yes -Type of Procedure Debridement -Clinical Debridement Subcutaneous -Tissue Removed Subcutaneous -Post Debridement (cm) - Length 2.9 -Post Debridement (cm) - Width 1.1 -Post Debridement (cm) - Depth 0.1 -Total Square (Post) (cm) 3.19 -Area of Debridement (cm) - Length 2.9 -Area of Debridement (cm) - Width 1.1 -Total Square (Area) (cm) 3.19 -Tunneling No -Undermining/Tunneling No -Ulcer Cleansing Rinsed/ Irrigated with Saline -Foul Odor after Cleansing No -Bioengineered Tissue No -Bleeding Controlled with Pressure -Treatment Response Procedure Tolerated Well -Offloading No -Debridement - Subq, 1st 20sq cm No #10 Left Medial Ankle -Time 09:10 -Correct Patient Yes -Correct Side, Site, Position Yes -Correct Procedure Yes -Procedure Performed Yes -Type of Procedure Debridement -Clinical Debridement Subcutaneous -Tissue Removed Subcutaneous -Post Debridement (cm) - Length 4.0 -Post Debridement (cm) - Width 3.0 -Post Debridement (cm) - Depth 0.2 -Total Square (Post) (cm) 12.00 -Area of Debridement (cm) - Length 4.0 -Area of Debridement (cm) - Width 3.0 -Total Square (Area) (cm) 12.00 -Tunneling No -Undermining/Tunneling No -Circular Undermining No -Wound/Ulcer Outcome Not Healed -Ulcer Cleansing Rinsed/ Irrigated with Saline -Bioengineered Tissue No -Bleeding Controlled with Pressure -Treatment Response Procedure Tolerated Well -Offloading No -Debridement - Subq, 1st 20sq cm No Pain Scale: 0-10 Numeric Is Patient Pain Free? Yes - Nurse 3 - General Ulcer D/C NN Start: 09/28/22 08:45 Freq: Status: Active Protocol: Activity Type Activity Date Activity User E-sign Co-sign Detail Recorded Client Recorded Date Recorded By Document 09/28/22 09:26 DL [id number] 09/28/22 09:28 DL 09/28/22 09:26 Wound Care Nurse 3 #15 R Med Ankle -Ulcer Cleansing Soap and Water -Foul Odor after Cleansing No -Other Dressing Bactroban/ kerramax -Primary Dressing Covered/Secured with Dry Gauze & Roll Gauze, Secured with Tape #11 Medial Inferior LLE -Ulcer Cleansing Soap and Water -Foul Odor after Cleansing No -Other Dressing Bactroban/ kerramax -Primary Dressing Covered/Secured with Dry Gauze & Roll Gauze, Secured with Tape #10 Left Medial Ankle -Ulcer Cleansing Soap and Water -Foul Odor after Cleansing No -Other Dressing bactrobam/ kerramax -Primary Dressing Covered/Secured with Dry Gauze & Roll Gauze lester -Stockings Yes Treatment Response Procedure Tolerated Well Pain Scale: 0-10 Numeric Is Patient Pain Free? Yes - Visit Discharge Discharge Condition Stable Ambulatory Status Ambulatory Transportation Private Auto Additional Wound Wound debrided: Left lower extremity (medial ankle) Type of Debridement: Excisional debridement Anesthesia Used: 4% Lidocaine Solution Depth: Down to and including healthy tissue and in the subcutaneous layer Percentage of wound debrided: 100 Instrument Used: 5mm curette Tissue Removed: Slough and devitalized tissue Severity: Fat Layer Exposed Amount of bleeding with debridement: Mild Bleeding Controlled with: Pressure Patient tolerated procedure: Patient tolerated procedure well Additional Wound Wound debrided: Left lower extremity (inferior) Type of Debridement: Excisional debridement Anesthesia Used: 4% Lidocaine Solution Depth: Down to and including healthy tissue and in the subcutaneous layer Percentage of wound debrided: 100 Instrument Used: 5mm curette Tissue Removed: Slough and devitalized tissue Severity: Fat Layer Exposed Amount of bleeding with debridement: Mild Bleeding Controlled with: Pressure Patient tolerated procedure: Patient tolerated procedure well Assessment/Plan Assessment/Plan (1) Ulcer of left lower extremity with fat layer exposed: CODE(S): L97.922 - Non-pressure chronic ulcer of unspecified part of left lower leg with fat layer exposed (2) Ulcer of right lower extremity with fat layer exposed: CODE(S): L97.912 - Non-pressure chronic ulcer of unspecified part of right lower leg with fat layer exposed (3) PVD (peripheral vascular disease): CODE(S): I73.9 - Peripheral vascular disease, unspecified (4) Chronic venous insufficiency: CODE(S): I87.2 - Venous insufficiency (chronic) (peripheral) (5) Delayed wound healing: CODE(S): T14.8XXD - Other injury of unspecified body region, subsequent encounter PLAN: Plan Debridement done as documented above, procedure was well-tolerated. Continues to show improvement. Continue Aquacel and care max to all other ulcers. Change daily to twice daily depending on drainage. Continue mupirocin ointment as well. Continue use of compression stockings, leg elevation and exercise. In creased protein intake, protein supplements, zinc and vitamin C also recommended. Continue multivitamins. His questions were answered and was advised to call with any further questions or concerns. Follow-up in 2 weeks. This note was generated with [employer] dictation software. It may contain incorrect words, spelling, and punctuation that were not noted in checking the note before signing.
[2022-10-12 09:07] VITALS: BP 133/83; PULSE 89; RESP 18; TEMP 36.4; BMI 31.4
--- NOTE | 2022-10-12 09:41 | PN.PCM_ITS ---
History of Present Illness Date of Service: 10/12/22 Chief Complaint: ulcers to the left lower leg History of Wound: This is a 54-year-old male presents to wound healing center with a long-standing history of chronic venous insufficiency, chronic venous hypertension, lower extremity edema, lower extremity pain, and chronic left lower extremity ulcer. 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 He is currently wearing graduated compression stockings which are documented to be 20-30 mmHg compression and these are thigh high. He reports great compliance with use. He is also had previous arterial work-up with no intervention recommended by letter, his vascular surgeon. He denies taking nutritional supplementation. He saw dermatology and had a biopsy of the ulcer site. He also was previously treated by infectious disease for various contaminations and infections. He is not antibiotics at this time nor does he have any redness or odor coming from the wound. He denies fever, chill, nausea, vomiting, loss of appetite. 05/18/22: Mr. Jeronimo presents with a new right lower extremity ulceration. He states that this has been present for months and he has been trying to manage it at home without any significant improvement. Opened up months ago, no known precipitating factor. Has been applying wound dressings without any significant improvement. He reports increased drainage. Denies significant pain. No chills, fever or feeling of unwell. Progress of Wound: No new concerns at this time. No significant change in size. Objective Data Objective Data Vital Signs: Vital Signs Temp Pulse Resp BP Pulse Ox O2 Del Method 97.6 F L 89 18 133/83 H 99 Room Air 10/12/22 09:07 10/12/22 09:07 10/12/22 09:07 10/12/22 09:07 09/28/22 00:23 09/28/22 08:45 Oxygen Delivery Method Room Air Body Mass Index (BMI) 31.4 Charges/Coding Procedures Integumentary 111xxx-113xx: 15927 Lakeisha subq tissue 20 sq cm/< Add On Codes: 22975 Lakeisha subq tissue add-on (x1 additional square centimeter debrided, please refer to clinical note.) Physical Exam Const alert, oriented x3 and no apparent distress General Appearance: cooperative and comfortable Orientation / Consciousness: awake HEENT normocephalic Head and Scalp: normal to inspection, normocephalic and atraumatic Face and Sinus: normal facial exam Eyes EOMs intact bilaterally Neck full ROM and supple General: normal visual inspection Resp normal respiratory effort Effort and Inspection: able to speak in complete sentences GI non-tender Extremity normal to inspection General Extremity: edema Skin Wounds: wounds noted Neuro oriented x3 and CN's II-XII intact bilaterally Psych mental status grossly normal Appearance: grossly normal Debridement Note Debridement Note Wound debrided: Right medial ankle/lower extremity Type of Debridement: Excisional debridement Anesthesia Used: 5% Lidocaine Gel Depth: Down to and including healthy tissue and in the subcutaneous layer Percentage of wound debrided: 100 Instrument Used: 7mm curette Tissue Removed: Slough and devitalized tissue Severity: Fat Layer Exposed Amount of bleeding with debridement: Mild Bleeding Controlled with: Pressure Patient tolerated procedure: Patient tolerated procedure well Post-Debridement Measurements and Additional Note: Post-Debridement Measurements/Treatment - Nurse 1 - General Ulcer Assessment Start: 09/28/22 08:45 Freq: Status: Active Protocol: [email or web address].[email or web address] Activity Type Activity Date Activity User E-sign Co-sign Detail Recorded Client Recorded Date Recorded By Document 09/28/22 08:45 [facility] [id number] 09/28/22 08:54 BM Document 10/12/22 09:07 DL [id number] 10/12/22 09:14 DL 09/28/22 10/12/22 08:45 09:07 - Today's Visit Information Type of service Follow-up Visit Follow-up Visit (Physician/BOND BROKER (Physician/BOND BROKER ) ) Arrival Mode Ambulatory Ambulatory Transfer Assistance None None Patient Identification Verified (Name & Yes Yes ) Patient Requires Transmission-Based No No Precautions Height and Weight Body Mass Index (BMI) 31.4 31.4 BMI Classification Obese Obese Vital Signs Temperature (97.8 F-99.1 F) 96.7 F L 97.6 F L Temperature Source Temporal Temporal Pulse Rate (60-100) 82 89 Pulse Location Monitor Monitor Respiratory Rate (12-18) 16 18 Respiratory rate source Observation Observation Oxygen Delivery Method Room Air Blood Pressure (90/60-120/80) 139/78 H 133/83 H Blood Pressure Mean (mm Hg) 98 99 Source Monitor Monitor Position Sitting Blood Pressure Location Right Arm History Since Last Visit- (Skip if this is Patient's initial visit) Have you changed medications since your No No last visit? Any new allergies or adverse reactions No No Had a fall/change in ADL's that may No No increase risk of falls Signs or symptoms of abuse and/or No No neglect since last visit Have you been in the hospital since your No No last visit? Has dressing in place as prescribed Yes Yes Has compression in place as prescribed Yes Yes Has offloadiing in place as prescribed N/A Yes Experienced any changes in pain level or No No management Left Footwear Regular Shoe Right Footwear Regular Shoe Pain Scale: 0-10 Numeric Is Patient Pain Free? Yes Yes WC - Nurse 1 - General Ulcer Measurement Start: 09/28/22 08:45 Freq: Status: Active Protocol: Activity Type Activity Date Activity User E-sign Co-sign Detail Recorded Client Recorded Date Recorded By Document 09/28/22 08:45 BMF [id number] 09/28/22 08:54 BMF Document 10/12/22 09:07 DL [id number] 10/12/22 09:14 DL 09/28/22 10/12/22 08:45 09:07 Wound Center Nurse 1 #15 R Med Ankle -Combined with other wound No -Current Size (cm) - Length 5.2 5 -Current Size (cm) - Width 1 0.5 -Current Size (cm) - Depth 0.2 0.2 -Total Square Cm 5.2 2.5 -Date of Last Picture (Recall this 09/28/22 field) -Photo Taken Yes Yes -Epithelialization Small 1-33% -Tunneling No -Undermining/Tunneling No -Circular Undermining No -Exudate Amt Medium Medium -Exudate Type Serosanguineous Serosanguineous -Wound Margin Distinct, Distinct, Outline Outline Attached Attached -Granulation Amt Medium (34-66%) Large (67-100%) -Granulation Quality Red Red -Slough/Fibrin Yes -Necrosis Amt Medium (34-66%) Small (1-33%) -Necrotic Tissue Type Adherent Slough -Structure Exposed N/A -Texture (Ara-wound Skin Appearance) Assessed, Scarring Scarring -Moisture (Ara-wound Skin Appearance) Assessed,Dry/ Dry/Scaly Scaly -Color (Ara-wound Skin Appearance) Assessed Hemosiderin Staining -Temperature (Ara-wound Skin No Abnormality No Abnormality Appearance) (Pt Warm) (Pt Warm) -Tenderness on Palpation (Ara-wound No No Skin Appearance) -Ulcer Cleansing Soap and Water Soap and Water -Foul Odor after Cleansing No No -Anesthetic Used 4% Lidocaine 5% Lidocaine Solution Gel #11 Medial Inferior LLE -Combined with other wound No -Current Size (cm) - Length 2.5 2.9 -Current Size (cm) - Width 2.2 1 -Current Size (cm) - Depth 0.1 0.1 -Total Square Cm 5.50 2.9 -Date of Last Picture (Recall this 09/28/22 field) -Photo Taken Yes Yes -Epithelialization Small 1-33% -Tunneling No -Undermining/Tunneling No -Circular Undermining No -Exudate Amt Medium Medium -Exudate Type Serosanguineous Serosanguineous -Wound Margin Distinct, Distinct, Outline Outline Attached Attached -Granulation Amt Large (67-100%) Large (67-100%) -Granulation Quality Red Red -Slough/Fibrin Yes -Necrosis Amt Small (1-33%) Small (1-33%) -Necrotic Tissue Type Adherent Slough Adherent Slough -Texture (Ara-wound Skin Appearance) Assessed, Scarring Scarring -Moisture (Ara-wound Skin Appearance) Assessed,Dry/ Dry/Scaly Scaly -Color (Ara-wound Skin Appearance) Assessed, Hemosiderin Hemosiderin Staining Staining -Temperature (Ara-wound Skin No Abnormality No Abnormality Appearance) (Pt Warm) (Pt Warm) -Tenderness on Palpation (Ara-wound No No Skin Appearance) -Ulcer Cleansing Soap and Water Soap and Water -Foul Odor after Cleansing No No -Anesthetic Used 4% Lidocaine 5% Lidocaine Solution Gel #10 Left Medial Ankle -Combined with other wound No -Current Size (cm) - Length 4.9 4.3 -Current Size (cm) - Width 3 3 -Current Size (cm) - Depth 0.2 0.2 -Total Square Cm 14.7 12.9 -Date of Last Picture (Recall this 09/28/22 field) -Photo Taken Yes Yes -Epithelialization Small 1-33% -Tunneling No -Undermining/Tunneling No -Circular Undermining No -Exudate Amt Medium Medium -Exudate Type Serosanguineous Serosanguineous -Wound Margin Distinct, Distinct, Outline Outline Attached Attached -Granulation Amt Medium (34-66%) Large (67-100%) -Slough/Fibrin Yes -Necrosis Amt Medium (34-66%) Medium (34-66%) -Necrotic Tissue Type Adherent Slough Adherent Slough -Structure Exposed N/A -Texture (Ara-wound Skin Appearance) Assessed, Scarring Scarring -Moisture (Ara-wound Skin Appearance) Assessed,Dry/ Dry/Scaly Scaly -Color (Ara-wound Skin Appearance) Assessed Hemosiderin Staining -Temperature (Ara-wound Skin No Abnormality No Abnormality Appearance) (Pt Warm) (Pt Warm) -Tenderness on Palpation (Ara-wound No No Skin Appearance) -Ulcer Cleansing Soap and Water Soap and Water -Foul Odor after Cleansing No No -Anesthetic Used 4% Lidocaine 5% Lidocaine Solution Gel Right Calf (cm) 35.4 36.4 Right Ankle (cm) 22.6 21.5 Left Calf (cm) 36.8 35 Left Ankle (cm) 22.3 22 WC - Nurse 2 - General Ulcer CM Notes Start: 09/28/22 08:45 Freq: Status: Active Protocol: Activity Type Activity Date Activity User E-sign Co-sign Detail Recorded Client Recorded Date Recorded By Document 09/28/22 09:09 MW [id number] 09/28/22 09:23 MW Document 10/12/22 09:23 MW [id number] 10/12/22 09:29 MW 09/28/22 10/12/22 09:09 09:23 Wound Center Nurse 2 #15 R Med Ankle -Time 09:09 09:23 -Correct Patient Yes Yes -Correct Side, Site, Position Yes Yes -Correct Procedure Yes Yes -Procedure Performed Yes Yes -Type of Procedure Debridement Debridement -Clinical Debridement Subcutaneous Subcutaneous -Tissue Removed Subcutaneous Subcutaneous -Post Debridement (cm) - Length 5.4 5.2 -Post Debridement (cm) - Width 0.6 0.7 -Post Debridement (cm) - Depth 0.1 0.1 -Total Square (Post) (cm) 3.24 3.64 -Area of Debridement (cm) - Length 5.4 5.2 -Area of Debridement (cm) - Width 0.6 0.7 -Total Square (Area) (cm) 3.24 3.64 -Tunneling No No -Undermining/Tunneling No No -Circular Undermining No No -Wound/Ulcer Outcome Not Healed Not Healed -Ulcer Cleansing Rinsed/ Rinsed/ Irrigated with Irrigated with Saline Saline -Foul Odor after Cleansing No No -Bioengineered Tissue No No -Bleeding Controlled with Pressure Pressure -Treatment Response Procedure Procedure Tolerated Well Tolerated Well -Offloading No No -Debridement - Subq, 1st 20sq cm Yes Yes -Debridement, SubQ, ea addt'l 20sq cm 1 or part thereof #11 Medial Inferior LLE -Time 09:09 09:24 -Correct Patient Yes Yes -Correct Side, Site, Position Yes Yes -Correct Procedure Yes Yes -Procedure Performed Yes Yes -Type of Procedure Debridement Debridement -Clinical Debridement Subcutaneous Subcutaneous -Tissue Removed Subcutaneous Subcutaneous -Post Debridement (cm) - Length 2.9 3.4 -Post Debridement (cm) - Width 1.1 1.0 -Post Debridement (cm) - Depth 0.1 0.1 -Total Square (Post) (cm) 3.19 3.40 -Area of Debridement (cm) - Length 2.9 3.4 -Area of Debridement (cm) - Width 1.1 1.0 -Total Square (Area) (cm) 3.19 3.40 -Tunneling No No -Undermining/Tunneling No No -Circular Undermining No -Wound/Ulcer Outcome Not Healed -Ulcer Cleansing Rinsed/ Rinsed/ Irrigated with Irrigated with Saline Saline -Foul Odor after Cleansing No No -Bioengineered Tissue No No -Bleeding Controlled with Pressure Pressure -Treatment Response Procedure Procedure Tolerated Well Tolerated Well -Offloading No No -Debridement - Subq, 1st 20sq cm No No #10 Left Medial Ankle -Time 09:10 09:25 -Correct Patient Yes Yes -Correct Side, Site, Position Yes Yes -Correct Procedure Yes Yes -Procedure Performed Yes Yes -Type of Procedure Debridement Debridement -Clinical Debridement Subcutaneous Subcutaneous -Tissue Removed Subcutaneous Subcutaneous -Post Debridement (cm) - Length 4.0 4.4 -Post Debridement (cm) - Width 3.0 3.3 -Post Debridement (cm) - Depth 0.2 0.2 -Total Square (Post) (cm) 12.00 14.52 -Area of Debridement (cm) - Length 4.0 4.4 -Area of Debridement (cm) - Width 3.0 3.3 -Total Square (Area) (cm) 12.00 14.52 -Tunneling No No -Undermining/Tunneling No No -Circular Undermining No No -Wound/Ulcer Outcome Not Healed Not Healed -Ulcer Cleansing Rinsed/ Rinsed/ Irrigated with Irrigated with Saline Saline -Foul Odor after Cleansing No -Bioengineered Tissue No No -Bleeding Controlled with Pressure Pressure -Treatment Response Procedure Procedure Tolerated Well Tolerated Well -Offloading No No -Debridement - Subq, 1st 20sq cm No No Pain Scale: 0-10 Numeric Is Patient Pain Free? Yes Yes WC - Nurse 3 - General Ulcer D/C NN Start: 09/28/22 08:45 Freq: Status: Active Protocol: Activity Type Activity Date Activity User E-sign Co-sign Detail Recorded Client Recorded Date Recorded By Document 09/28/22 09:26 DL [id number] 09/28/22 09:28 DL Document 10/12/22 09:34 DL [id number] 10/12/22 09:36 DL 09/28/22 10/12/22 09:26 09:34 Wound Care Nurse 3 #15 R Med Ankle -Ulcer Cleansing Soap and Water Soap and Water -Foul Odor after Cleansing No No -Other Dressing Bactroban/ Bactrban/ kerramax aquacel AGkerramax -Primary Dressing Covered/Secured with Dry Gauze & Dry Gauze Roll Gauze, Secured with Tape #11 Medial Inferior LLE -Ulcer Cleansing Soap and Water Soap and Water -Foul Odor after Cleansing No No -Other Dressing Bactroban/ bactroban/ kerramax aquacel ag/ kerramax -Primary Dressing Covered/Secured with Dry Gauze & Dry Gauze, Roll Gauze, Secured with Secured with Tape Tape #10 Left Medial Ankle -Ulcer Cleansing Soap and Water Soap and Water -Foul Odor after Cleansing No No -Other Dressing bactrobam/ bactroban/ kerramax aquacel AG/ kerramax -Primary Dressing Covered/Secured with Dry Gauze & Dry Gauze, Roll Gauze Secured with Tape lester -Stockings Yes Yes Treatment Response Procedure Procedure Tolerated Well Tolerated Well Pain Scale: 0-10 Numeric Is Patient Pain Free? Yes Yes WC - Visit Discharge Discharge Condition Stable Stable Ambulatory Status Ambulatory Ambulatory Transportation Private Auto Private Auto Additional Wound Wound debrided: Left lower extremity/medial ankle Type of Debridement: Excisional debridement Anesthesia Used: 5% Lidocaine Gel Depth: Down to and including healthy tissue and in the subcutaneous layer Percentage of wound debrided: 100 Instrument Used: 7mm curette Tissue Removed: Slough and devitalized tissue Severity: Fat Layer Exposed Amount of bleeding with debridement: Mild Bleeding Controlled with: Pressure Patient tolerated procedure: Patient tolerated procedure well Additional Wound Wound debrided: Left lower extremity (inferior) Type of Debridement: Excisional debridement Anesthesia Used: 5% Lidocaine Gel Depth: Down to and including healthy tissue and in the subcutaneous layer Percentage of wound debrided: 100 Instrument Used: 7mm curette Tissue Removed: Slough and devitalized tissue. Severity: Fat Layer Exposed Amount of bleeding with debridement: Mild Bleeding Controlled with: Pressure Patient tolerated procedure: Patient tolerated procedure well Assessment/Plan Assessment/Plan (1) Ulcer of left lower extremity with fat layer exposed: CODE(S): L97.922 - Non-pressure chronic ulcer of unspecified part of left lower leg with fat layer exposed (2) Ulcer of right lower extremity with fat layer exposed: CODE(S): L97.912 - Non-pressure chronic ulcer of unspecified part of right lower leg with fat layer exposed (3) PVD (peripheral vascular disease): CODE(S): I73.9 - Peripheral vascular disease, unspecified (4) Chronic venous insufficiency: CODE(S): I87.2 - Venous insufficiency (chronic) (peripheral) (5) Delayed wound healing: CODE(S): T14.8XXD - Other injury of unspecified body region, subsequent encounter PLAN: Plan Debridement done as documented above, procedure was well-tolerated. 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 Continue Aquacel and care max to all other ulcers. Change daily to twice daily depending on drainage. Continue mupirocin ointment as well. Continue use of compression stockings, leg elevation and exercise. Increased protein intake, protein supplements, zinc and vitamin C also recommended. Continue multivitamins. His questions were answered and he was advised to call with any further questions or concerns. Follow-up in 2 weeks. This note was generated with [employer] software. It may contain incorrect words, spelling, and punctuation that were not noted in checking the note before signing.
[2022-10-26 08:50] VITALS: BP 148/90; PULSE 95; RESP 20; TEMP 36.1; BMI 31.4
--- NOTE | 2022-10-26 09:43 | PCM.WC.PN ---
History of Present Illness Date of Service: 10/26/22 Chief Complaint: ulcers to the left lower leg History of Wound: This is a 54-year-old male presents to wound healing center with a long-standing history of chronic venous insufficiency, chronic venous hypertension, lower extremity edema, lower extremity pain, and chronic left lower extremity ulcer. The patient has previously undergone endovenous laser ablation of the left and right great saphenous vein, the small saphenous vein, the left accessory saphenous vein, and an incompetent left calf baker test vein located 15 cm proximal to the left medial malleolus. He is currently wearing graduated compression stockings which are documented to be 20-30 mmHg compression and these are thigh high. He reports great compliance with use. He is also had previous arterial work-up with no intervention recommended by letter, his vascular surgeon. He denies taking nutritional supplementation. He saw dermatology and had a biopsy of the ulcer site. He also was previously treated by infectious disease for various contaminations and infections. He is not antibiotics at this time nor does he have any redness or odor coming from the wound. He denies fever, chill, nausea, vomiting, loss of appetite. 05/18/22: Mr. Jeronimo presents with a new right lower extremity ulceration. He states that this has been present for months and he has been trying to manage it at home without any significant improvement. Opened up months ago, no known precipitating factor. Has been applying wound dressings without any significant improvement. He reports increased drainage. Denies significant pain. No chills, fever or feeling of unwell. Progress of Wound: No new concerns at this time. Some improvement noted. Objective Data Objective Data Vital Signs: Vital Signs Temp Pulse Resp BP Pulse Ox O2 Del Method 96.9 F L 95 20 H 148/90 H 99 Room Air 10/26/22 08:50 10/26/22 08:50 10/26/22 08:50 10/26/22 08:50 09/28/22 00:23 09/28/22 08:45 Oxygen Delivery Method Room Air Body Mass Index (BMI) 31.4 Charges/Coding Procedures Integumentary 111xxx-113xx: 44180 Lakeisha subq tissue 20 sq cm/< Physical Exam Const alert, oriented x3 and no apparent distress General Appearance: cooperative and comfortable Orientation / Consciousness: awake HEENT normocephalic Head and Scalp: normal to inspection, normocephalic and atraumatic Face and Sinus: normal facial exam Eyes EOMs intact bilaterally Neck full ROM and supple General: normal visual inspection Resp normal respiratory effort Effort and Inspection: able to speak in complete sentences GI non-tender Extremity normal to inspection General Extremity: edema Skin Wounds: wounds noted Neuro oriented x3 and CN's II-XII intact bilaterally Psych mental status grossly normal Appearance: grossly normal Debridement Note Debridement Note Wound debrided: Right lower extremity Type of Debridement: Excisional debridement Anesthesia Used: 4% Lidocaine Solution Depth: Down to and including healthy tissue and in the subcutaneous layer Percentage of wound debrided: 100 Instrument Used: 3mm curette Tissue Removed: Slough and devitalized tissue Severity: Fat Layer Exposed Amount of bleeding with debridement: Mild Bleeding Controlled with: Pressure Patient tolerated procedure: Patient tolerated procedure well Post-Debridement Measurements and Additional Note: Post-Debridement Measurements/Treatment KIMBERLY - Nurse 1 - General Ulcer Assessment Start: 09/28/22 08:45 Freq: Status: Active Protocol: SHANTA Activity Type Activity Date Activity User E-sign Co-sign Detail Recorded Client Recorded Date Recorded By Document 09/28/22 08:45 BM [id number] 09/28/22 08:54 BMF Document 10/12/22 09:07 DL [id number] 10/12/22 09:14 DL Document 10/26/22 08:50 DL [id number] 10/26/22 08:57 DL 09/28/22 10/12/22 10/26/22 08:45 09:07 08:50 - Today's Visit Information Type of service Follow-up Visit Follow-up Visit Follow-up Visit (Physician/EXECUTIVE MARKETING ASSISTANT (Physician/EXECUTIVE MARKETING ASSISTANT (Physician/EXECUTIVE MARKETING ASSISTANT ) ) ) Arrival Mode Ambulatory Ambulatory Ambulatory Transfer Assistance None None None Patient Identification Verified (Name & Yes Yes Yes ) Patient Requires Transmission-Based No No Precautions Height and Weight Body Mass Index (BMI) 31.4 31.4 31.4 BMI Classification Obese Obese Obese Vital Signs Temperature (97.8 F-99.1 F) 96.7 F L 97.6 F L 96.9 F L Temperature Source Temporal Temporal Temporal Pulse Rate (60-100) 82 89 95 Pulse Location Monitor Monitor Monitor Respiratory Rate (12-18) 16 18 20 H Respiratory rate source Observation Observation Observation Oxygen Delivery Method Room Air Blood Pressure (90/60-120/80) 139/78 H 133/83 H 148/90 H Blood Pressure Mean (mm Hg) 98 99 109 Source Monitor Monitor Monitor Position Sitting Blood Pressure Location Right Arm History Since Last Visit- (Skip if this is Patient's initial visit) Have you changed medications since your No No No last visit? Any new allergies or adverse reactions No No No Had a fall/change in ADL's that may No No No increase risk of falls Signs or symptoms of abuse and/or No No No neglect since last visit Have you been in the hospital since your No No No last visit? Has dressing in place as prescribed Yes Yes Yes Has compression in place as prescribed Yes Yes Yes Has offloadiing in place as prescribed N/A Yes N/A Experienced any changes in pain level or No No No management Left Footwear Regular Shoe Right Footwear Regular Shoe Pain Scale: 0-10 Numeric Is Patient Pain Free? Yes Yes Yes WC - Nurse 1 - General Ulcer Measurement Start: 09/28/22 08:45 Freq: Status: Active Protocol: Activity Type Activity Date Activity User E-sign Co-sign Detail Recorded Client Recorded Date Recorded By Document 09/28/22 08:45 BMF [id number] 09/28/22 08:54 BMF Document 10/12/22 09:07 DL [id number] 10/12/22 09:14 DL Document 10/26/22 08:50 DL [id number] 10/26/22 08:57 DL 09/28/22 10/12/22 10/26/22 08:45 09:07 08:50 Wound Center Nurse 1 #15 R Med Ankle -Combined with other wound No -Current Size (cm) - Length 5.2 5 4.5 -Current Size (cm) - Width 1 0.5 0.4 -Current Size (cm) - Depth 0.2 0.2 0.1 -Total Square Cm 5.2 2.5 1.80 -Date of Last Picture (Recall this 09/28/22 field) -Photo Taken Yes Yes Yes -Epithelialization Small 1-33% -Tunneling No -Undermining/Tunneling No -Circular Undermining No -Exudate Amt Medium Medium Small -Exudate Type Serosanguineous Serosanguineous Serosanguineous -Wound Margin Distinct, Distinct, Thickened Outline Outline Attached Attached -Granulation Amt Medium (34-66%) Large (67-100%) Large (67-100%) -Granulation Quality Red Red Red -Slough/Fibrin Yes -Necrosis Amt Medium (34-66%) Small (1-33%) Small (1-33%) -Necrotic Tissue Type Adherent Slough Adherent Slough -Structure Exposed N/A N/A -Texture (Ara-wound Skin Appearance) Assessed, Scarring Scarring Scarring -Moisture (Ara-wound Skin Appearance) Assessed,Dry/ Dry/Scaly Dry/Scaly Scaly -Color (Ara-wound Skin Appearance) Assessed Hemosiderin Hemosiderin Staining Staining -Temperature (Ara-wound Skin No Abnormality No Abnormality No Abnormality Appearance) (Pt Warm) (Pt Warm) (Pt Warm) -Tenderness on Palpation (Ara-wound No No No Skin Appearance) -Ulcer Cleansing Soap and Water Soap and Water Soap and Water -Foul Odor after Cleansing No No No -Anesthetic Used 4% Lidocaine 5% Lidocaine 5% Lidocaine Solution Gel Gel #11 Medial Inferior LLE -Combined with other wound No -Current Size (cm) - Length 2.5 2.9 2.7 -Current Size (cm) - Width 2.2 1 0.6 -Current Size (cm) - Depth 0.1 0.1 0.1 -Total Square Cm 5.50 2.9 1.62 -Date of Last Picture (Recall this 09/28/22 field) -Photo Taken Yes Yes Yes -Epithelialization Small 1-33% -Tunneling No -Undermining/Tunneling No -Circular Undermining No -Exudate Amt Medium Medium Small -Exudate Type Serosanguineous Serosanguineous -Wound Margin Distinct, Distinct, Thickened Outline Outline Attached Attached -Granulation Amt Large (67-100%) Large (67-100%) Large (67-100%) -Granulation Quality Red Red Red -Slough/Fibrin Yes -Necrosis Amt Small (1-33%) Small (1-33%) Small (1-33%) -Necrotic Tissue Type Adherent Slough Adherent Slough Adherent Slough -Structure Exposed N/A -Texture (Ara-wound Skin Appearance) Assessed, Scarring Scarring Scarring -Moisture (Ara-wound Skin Appearance) Assessed,Dry/ Dry/Scaly Dry/Scaly Scaly -Color (Ara-wound Skin Appearance) Assessed, Hemosiderin Hemosiderin Hemosiderin Staining Staining Staining -Temperature (Ara-wound Skin No Abnormality No Abnormality No Abnormality Appearance) (Pt Warm) (Pt Warm) (Pt Warm) -Tenderness on Palpation (Ara-wound No No Skin Appearance) -Ulcer Cleansing Soap and Water Soap and Water Soap and Water -Foul Odor after Cleansing No No No -Anesthetic Used 4% Lidocaine 5% Lidocaine 5% Lidocaine Solution Gel Gel #10 Left Medial Ankle -Combined with other wound No -Current Size (cm) - Length 4.9 4.3 4.5 -Current Size (cm) - Width 3 3 3 -Current Size (cm) - Depth 0.2 0.2 0.2 -Total Square Cm 14.7 12.9 13.5 -Date of Last Picture (Recall this 09/28/22 field) -Photo Taken Yes Yes Yes -Epithelialization Small 1-33% -Tunneling No -Undermining/Tunneling No -Circular Undermining No -Exudate Amt Medium Medium Small -Exudate Type Serosanguineous Serosanguineous Serosanguineous -Wound Margin Distinct, Distinct, Thickened Outline Outline Attached Attached -Granulation Amt Medium (34-66%) Large (67-100%) -Granulation Quality Red -Slough/Fibrin Yes -Necrosis Amt Medium (34-66%) Medium (34-66%) Medium (34-66%) -Necrotic Tissue Type Adherent Slough Adherent Slough Adherent Slough -Structure Exposed N/A N/A -Texture (Ara-wound Skin Appearance) Assessed, Scarring Scarring Scarring -Moisture (Ara-wound Skin Appearance) Assessed,Dry/ Dry/Scaly Dry/Scaly Scaly -Color (Ara-wound Skin Appearance) Assessed Hemosiderin Hemosiderin Staining Staining -Temperature (Ara-wound Skin No Abnormality No Abnormality No Abnormality Appearance) (Pt Warm) (Pt Warm) (Pt Warm) -Tenderness on Palpation (Ara-wound No No Skin Appearance) -Ulcer Cleansing Soap and Water Soap and Water Soap and Water -Foul Odor after Cleansing No No No -Anesthetic Used 4% Lidocaine 5% Lidocaine 5% Lidocaine Solution Gel Gel Right Calf (cm) 35.4 36.4 36 Right Ankle (cm) 22.6 21.5 21.5 Left Calf (cm) 36.8 35 33.5 Left Ankle (cm) 22.3 22 Point of Measurement (cm from the medial 22 instep) WC - Nurse 2 - General Ulcer CM Notes Start: 09/28/22 08:45 Freq: Status: Active Protocol: Activity Type Activity Date Activity User E-sign Co-sign Detail Recorded Client Recorded Date Recorded By Document 09/28/22 09:09 MW [id number] 09/28/22 09:23 MW Document 10/12/22 09:23 MW [id number] 10/12/22 09:29 MW Document 10/26/22 09:09 [id number] 10/26/22 09:22 JF 09/28/22 10/12/22 10/26/22 09:09 09:23 09:09 Wound Center Nurse 2 #15 R Med Ankle -Time 09:09 09:23 09:10 -Correct Patient Yes Yes Yes -Correct Side, Site, Position Yes Yes Yes -Correct Procedure Yes Yes Yes -Procedure Performed Yes Yes Yes -Type of Procedure Debridement Debridement Debridement -Clinical Debridement Subcutaneous Subcutaneous Subcutaneous -Tissue Removed Subcutaneous Subcutaneous Subcutaneous -Post Debridement (cm) - Length 5.4 5.2 4.8 -Post Debridement (cm) - Width 0.6 0.7 0.5 -Post Debridement (cm) - Depth 0.1 0.1 0.1 -Total Square (Post) (cm) 3.24 3.64 2.40 -Area of Debridement (cm) - Length 5.4 5.2 4.8 -Area of Debridement (cm) - Width 0.6 0.7 0.5 -Total Square (Area) (cm) 3.24 3.64 2.40 -Tunneling No No No -Undermining/Tunneling No No No -Circular Undermining No No No -Wound/Ulcer Outcome Not Healed Not Healed Not Healed -Ulcer Cleansing Rinsed/ Rinsed/ Rinsed/ Irrigated with Irrigated with Irrigated with Saline Saline Saline -Foul Odor after Cleansing No No No -Bioengineered Tissue No No No -Bleeding Controlled with Pressure Pressure Pressure -Treatment Response Procedure Procedure Procedure Tolerated Well Tolerated Well Tolerated Well -Offloading No No No -Debridement - Subq, 1st 20sq cm Yes Yes No -Debridement, SubQ, ea addt'l 20sq cm 1 or part thereof #11 Medial Inferior LLE -Time 09:09 09:24 09:11 -Correct Patient Yes Yes Yes -Correct Side, Site, Position Yes Yes Yes -Correct Procedure Yes Yes Yes -Procedure Performed Yes Yes Yes -Type of Procedure Debridement Debridement Debridement -Clinical Debridement Subcutaneous Subcutaneous Subcutaneous -Tissue Removed Subcutaneous Subcutaneous Subcutaneous -Post Debridement (cm) - Length 2.9 3.4 2.7 -Post Debridement (cm) - Width 1.1 1.0 0.9 -Post Debridement (cm) - Depth 0.1 0.1 0.1 -Total Square (Post) (cm) 3.19 3.40 2.43 -Area of Debridement (cm) - Length 2.9 3.4 2.7 -Area of Debridement (cm) - Width 1.1 1.0 0.9 -Total Square (Area) (cm) 3.19 3.40 2.43 -Tunneling No No No -Undermining/Tunneling No No No -Circular Undermining No No -Wound/Ulcer Outcome Not Healed Not Healed -Ulcer Cleansing Rinsed/ Rinsed/ Rinsed/ Irrigated with Irrigated with Irrigated with Saline Saline Saline -Foul Odor after Cleansing No No No -Bioengineered Tissue No No No -Bleeding Controlled with Pressure Pressure Pressure -Treatment Response Procedure Procedure Procedure Tolerated Well Tolerated Well Tolerated Well -Offloading No No No -Debridement - Subq, 1st 20sq cm No No No #10 Left Medial Ankle -Time 09:10 09:25 09:11 -Correct Patient Yes Yes Yes -Correct Side, Site, Position Yes Yes Yes -Correct Procedure Yes Yes Yes -Procedure Performed Yes Yes Yes -Type of Procedure Debridement Debridement Debridement -Clinical Debridement Subcutaneous Subcutaneous Subcutaneous -Tissue Removed Subcutaneous Subcutaneous Subcutaneous -Post Debridement (cm) - Length 4.0 4.4 3.7 -Post Debridement (cm) - Width 3.0 3.3 3.2 -Post Debridement (cm) - Depth 0.2 0.2 0.2 -Total Square (Post) (cm) 12.00 14.52 11.84 -Area of Debridement (cm) - Length 4.0 4.4 3.7 -Area of Debridement (cm) - Width 3.0 3.3 3.2 -Total Square (Area) (cm) 12.00 14.52 11.84 -Tunneling No No No -Undermining/Tunneling No No No -Circular Undermining No No No -Wound/Ulcer Outcome Not Healed Not Healed Not Healed -Ulcer Cleansing Rinsed/ Rinsed/ Rinsed/ Irrigated with Irrigated with Irrigated with Saline Saline Saline -Foul Odor after Cleansing No No -Bioengineered Tissue No No No -Bleeding Controlled with Pressure Pressure Pressure -Treatment Response Procedure Procedure Procedure Tolerated Well Tolerated Well Tolerated Well -Offloading No No No -Debridement - Subq, 1st 20sq cm No No Yes Pain Scale: 0-10 Numeric Is Patient Pain Free? Yes Yes Yes WC - Nurse 3 - General Ulcer D/C NN Start: 09/28/22 08:45 Freq: Status: Active Protocol: Activity Type Activity Date Activity User E-sign Co-sign Detail Recorded Client Recorded Date Recorded By Document 09/28/22 09:26 DL [id number] 09/28/22 09:28 DL Document 10/12/22 09:34 DL [id number] 10/12/22 09:36 DL Document 10/26/22 09:31 DL [id number] 10/26/22 09:33 DL 09/28/22 10/12/22 10/26/22 09:26 09:34 09:31 Wound Care Nurse 3 #15 R Med Ankle -Ulcer Cleansing Soap and Water Soap and Water Soap and Water -Foul Odor after Cleansing No No No -Other Dressing Bactroban/ Bactrban/ Aquacel AG/ kerramax aquacel Kerramax AGkerramax -Primary Dressing Covered/Secured with Dry Gauze & Dry Gauze Roll Gauze, Secured with Tape #11 Medial Inferior LLE -Ulcer Cleansing Soap and Water Soap and Water Soap and Water -Foul Odor after Cleansing No No No -Other Dressing Bactroban/ bactroban/ aquacel ag/ kerramax aquacel ag/ kerrasmax kerramax -Primary Dressing Covered/Secured with Dry Gauze & Dry Gauze, Roll Gauze, Secured with Secured with Tape Tape #10 Left Medial Ankle -Ulcer Cleansing Soap and Water Soap and Water Soap and Water -Foul Odor after Cleansing No No No -Other Dressing bactrobam/ bactroban/ aquacel Ag/ kerramax aquacel AG/ kerramax kerramax -Primary Dressing Covered/Secured with Dry Gauze & Dry Gauze, Roll Gauze Secured with Tape lseter -Stockings Yes Yes Yes Treatment Response Procedure Procedure Procedure Tolerated Well Tolerated Well Tolerated Well Pain Scale: 0-10 Numeric Is Patient Pain Free? Yes Yes Yes WC - Visit Discharge Discharge Condition Stable Stable Stable Ambulatory Status Ambulatory Ambulatory Ambulatory Transportation Private Auto Private Auto Private Auto Additional Wound Wound debrided: Left medial ankle Type of Debridement: Excisional debridement Anesthesia Used: 5% Lidocaine Gel Depth: Down to and including healthy tissue and in the subcutaneous layer Percentage of wound debrided: 100 Instrument Used: 7mm curette Tissue Removed: Slough and devitalized tissue Severity: Fat Layer Exposed Amount of bleeding with debridement: Mild Bleeding Controlled with: Pressure Patient tolerated procedure: Patient tolerated procedure well Additional Wound Wound debrided: Left lower extremity (inferior) Type of Debridement: Excisional debridement Anesthesia Used: 5% Lidocaine Gel Depth: Down to and including healthy tissue and in the subcutaneous layer Percentage of wound debrided: 100 Instrument Used: 7mm curette Tissue Removed: Slough and devitalized tissue Severity: Fat Layer Exposed Amount of bleeding with debridement: Mild Bleeding Controlled with: Pressure Patient tolerated procedure: Patient tolerated procedure well Assessment/Plan Assessment/Plan (1) Ulcer of left lower extremity with fat layer exposed: CODE(S): L97.922 - Non-pressure chronic ulcer of unspecified part of left lower leg with fat layer exposed (2) Ulcer of right lower extremity with fat layer exposed: CODE(S): L97.912 - Non-pressure chronic ulcer of unspecified part of right lower leg with fat layer exposed (3) PVD (peripheral vascular disease): CODE(S): I73.9 - Peripheral vascular disease, unspecified (4) Chronic venous insufficiency: CODE(S): I87.2 - Venous insufficiency (chronic) (peripheral) (5) Delayed wound healing: CODE(S): T14.8XXD - Other injury of unspecified body region, subsequent encounter PLAN: Plan Debridement done as documented above, procedure was well-tolerated. Some improvement noted. Continue Aquacel and care max to all other ulcers. Change daily to twice daily depending on drainage. Continue mupirocin ointment as well. Continue use of compression stockings, leg elevation and exercise. Increased protein intake, protein supplements, zinc and vitamin C also recommended. Continue multivitamins. His questions were answered and he was advised to call with any further questions or concerns. Follow-up in 2 weeks. This note was generated with [employer] dictation software. It may contain incorrect words, spelling, and punctuation that were not noted in checking the note before signing.
== END 2022-10-28 23:59 | disposition home or self-care (01) ==
LOC: WC 09:00
PROVIDERS: PCP Family Medicine; Visit Provider Internal Medicine
DX: I87.313 Chronic venous hypertension (idiopathic) with ulcer of bilateral lower extremity (principal); L97.322 Non-pressure chronic ulcer of left ankle with fat layer exposed; L97.312 Non-pressure chronic ulcer of right ankle with fat layer exposed; I73.9 Peripheral vascular disease, unspecified; I87.2 Venous insufficiency (chronic) (peripheral); Z79.82 Long term (current) use of aspirin; Z79.899 Other long term (current) drug therapy
CPT/HCPCS: 11042; 11045

== ENCOUNTER 2022-11-09 09:17 | Outpatient (RCR) | payer BC, SELFPAY ==
[2022-10-29 00:19] VITALS: BP 148/90; PULSE 95; RESP 20; TEMP 36.1; O2SAT 99; BMI 31.4
[2022-11-09 08:52] VITALS: BP 139/77; PULSE 81; RESP 16; TEMP 36.6; BMI 31.4
--- NOTE | 2022-11-09 09:50 | PN.PCM_ITS ---
History of Present Illness Date of Service: 11/09/22 Chief Complaint: ulcers to the left lower leg History of Wound: This is a 54-year-old male presents to wound healing center with a long-standing history of chronic venous insufficiency, chronic venous hypertension, lower extremity edema, lower extremity pain, and chronic left lower extremity ulcer. The patient has previously undergone endovenous laser ablation of the left and right great saphenous vein, the small saphenous vein, the left accessory saphenous vein, and an incompetent left calf fish technologist vein located 15 cm proximal to the left medial malleolus. He is currently wearing graduated compression stockings which are documented to be 20-30 mmHg compression and these are thigh high. He reports great compliance with use. He is also had previous arterial work-up with no intervention recommended by letter, his vascular surgeon. He denies taking nutritional supplementation. He saw dermatology and had a biopsy of the ulcer site. He also was previously treated by infectious disease for various contaminations and infections. He is not antibiotics at this time nor does he have any redness or odor coming from the wound. He denies fever, chill, nausea, vomiting, loss of appetite. 05/18/22: Mr. Jeronimo presents with a new right lower extremity ulceration. He states that this has been present for months and he has been trying to manage it at home without any significant improvement. Opened up months ago, no known precipitating factor. Has been applying wound dressings without any significant improvement. He reports increased drainage. Denies significant pain. No chills, fever or feeling of unwell. Progress of Wound: Improving, no new concerns at this time. Objective Data Objective Data Vital Signs: Vital Signs Temp Pulse Resp BP Pulse Ox O2 Del Method 97.8 F 81 16 139/77 H 99 Room Air 11/09/22 08:52 11/09/22 08:52 11/09/22 08:52 11/09/22 08:52 10/29/22 00:19 11/09/22 08:52 Oxygen Delivery Method Room Air Body Mass Index (BMI) 31.4 Charges/Coding Procedures Integumentary 111xxx-113xx: [id number] [place]isha subq tissue 20 sq cm/< Physical Exam Const alert, oriented x3 and no apparent distress General Appearance: cooperative and comfortable Orientation / Consciousness: awake HEENT normocephalic Head and Scalp: normal to inspection, normocephalic and atraumatic Face and Sinus: normal facial exam Eyes EOMs intact bilaterally Neck full ROM and supple General: normal visual inspection Resp normal respiratory effort Effort and Inspection: able to speak in complete sentences GI non-tender Extremity normal to inspection General Extremity: edema Skin Wounds: wounds noted Neuro oriented x3 and CN's II-XII intact bilaterally Psych mental status grossly normal Appearance: grossly normal Debridement Note Debridement Note Wound debrided: Right Lower Extremity Type of Debridement: Excisional debridement Anesthesia Used: 4% Lidocaine Solution Depth: Down to and including healthy tissue and in the subcutaneous layer Percentage of wound debrided: 100 Instrument Used: 3mm curette Tissue Removed: Slough and devitalized tissue Severity: Fat Layer Exposed Amount of bleeding with debridement: Mild Bleeding Controlled with: Pressure Patient tolerated procedure: Patient tolerated procedure well Post-Debridement Measurements and Additional Note: Post-Debridement Measurements/Treatment - Nurse 1 - General Ulcer Assessment Start: 11/09/22 08:51 Freq: Status: Active Protocol: SHANTA Activity Type Activity Date Activity User E-sign Co-sign Detail Recorded Client Recorded Date Recorded By Document 11/09/22 08:52 [facility] Desktop 11/09/22 08:58 [facility] 11/09/22 08:52 - Today's Visit Information Type of service Follow-up Visit (Physician/[place] ) Arrival Mode Ambulatory Transfer Assistance None Patient Identification Verified (Name & Yes ) Patient Requires Transmission-Based No Precautions Height and Weight Body Mass Index (BMI) 31.4 BMI Classification Obese Vital Signs Temperature (97.8 F-99.1 F) 97.8 F Temperature Source Temporal Pulse Rate (60-100) 81 Pulse Location Monitor Respiratory Rate (12-18) 16 Respiratory rate source Observation Oxygen Delivery Method Room Air Blood Pressure (90/60-120/80) 139/77 H Blood Pressure Mean (mm Hg) 97 Source Monitor Position Sitting Blood Pressure Location Right Arm History Since Last Visit- (Skip if this is Patient's initial visit) Have you changed medications since your No last visit? Any new allergies or adverse reactions No Had a fall/change in ADL's that may No increase risk of falls Signs or symptoms of abuse and/or No neglect since last visit Have you been in the hospital since your No last visit? Has dressing in place as prescribed Yes Has compression in place as prescribed Yes Has offloadiing in place as prescribed N/A Experienced any changes in pain level or No management Left Footwear Regular Shoe Right Footwear Regular Shoe Pain Scale: 0-10 Numeric Is Patient Pain Free? Yes WC - Nurse 1 - General Ulcer Measurement Start: 11/09/22 08:51 Freq: Status: Active Protocol: Activity Type Activity Date Activity User E-sign Co-sign Detail Recorded Client Recorded Date Recorded By Document 11/09/22 08:52 [facility] Desktop 11/09/22 08:58 [facility] 11/09/22 08:52 Wound Center Nurse 1 #15 R Med Ankle -Combined with other wound No -Current Size (cm) - Length 0.8 -Current Size (cm) - Width 0.3 -Current Size (cm) - Depth 0.1 -Total Square Cm 0.24 -Date of Last Picture (Recall this 11/09/22 field) -Photo Taken Yes -Epithelialization Medium 34-66% -Tunneling No -Undermining/Tunneling No -Circular Undermining No -Exudate Amt Small -Exudate Type Serosanguineous -Wound Margin Distinct, Outline Attached -Granulation Amt Small (1-33%) -Granulation Quality Red -Slough/Fibrin Yes -Necrosis Amt Large (67-100%) -Necrotic Tissue Type Adherent Slough -Texture (Ara-wound Skin Appearance) Assessed, Scarring -Moisture (Ara-wound Skin Appearance) Assessed,Dry/ Scaly -Color (Ara-wound Skin Appearance) Assessed, Hemosiderin Staining -Temperature (Ara-wound Skin No Abnormality Appearance) (Pt Warm) -Tenderness on Palpation (Ara-wound No Skin Appearance) -Ulcer Cleansing Soap and Water -Foul Odor after Cleansing No -Anesthetic Used 5% Lidocaine Gel #11 Medial Inferior LLE -Combined with other wound No -Current Size (cm) - Length 2.3 -Current Size (cm) - Width 0.6 -Current Size (cm) - Depth 0.1 -Total Square Cm 1.38 -Date of Last Picture (Recall this 11/09/22 field) -Photo Taken Yes -Epithelialization Small 1-33% -Tunneling No -Undermining/Tunneling No -Circular Undermining No -Exudate Amt Medium -Exudate Type Serosanguineous -Wound Margin Distinct, Outline Attached -Granulation Amt Large (67-100%) -Granulation Quality Red -Slough/Fibrin Yes -Necrosis Amt Small (1-33%) -Necrotic Tissue Type Adherent Slough -Texture (Ara-wound Skin Appearance) Assessed, Scarring -Moisture (Ara-wound Skin Appearance) Assessed,Dry/ Scaly -Color (Ara-wound Skin Appearance) Assessed, Hemosiderin Staining -Temperature (Ara-wound Skin No Abnormality Appearance) (Pt Warm) -Tenderness on Palpation (Ara-wound No Skin Appearance) -Ulcer Cleansing Soap and Water -Foul Odor after Cleansing No -Anesthetic Used 5% Lidocaine Gel #10 Left Medial Ankle -Combined with other wound No -Current Size (cm) - Length 4.6 -Current Size (cm) - Width 2.8 -Current Size (cm) - Depth 0.2 -Total Square Cm 12.88 -Date of Last Picture (Recall this 11/09/22 field) -Photo Taken Yes -Epithelialization Small 1-33% -Tunneling No -Undermining/Tunneling No -Circular Undermining No -Exudate Amt Medium -Exudate Type Serosanguineous -Wound Margin Distinct, Outline Attached -Granulation Amt Medium (34-66%) -Granulation Quality Red -Slough/Fibrin Yes -Necrosis Amt Medium (34-66%) -Necrotic Tissue Type Adherent Slough -Texture (Ara-wound Skin Appearance) Assessed, Scarring -Moisture (Ara-wound Skin Appearance) Assessed,Dry/ Scaly -Color (Ara-wound Skin Appearance) Assessed, Hemosiderin Staining -Temperature (Ara-wound Skin No Abnormality Appearance) (Pt Warm) -Tenderness on Palpation (Ara-wound No Skin Appearance) -Ulcer Cleansing Soap and Water -Foul Odor after Cleansing No -Anesthetic Used 5% Lidocaine Gel Right Calf (cm) 36 Right Ankle (cm) 22.1 Left Calf (cm) 35.4 Left Ankle (cm) 22.6 WC - Nurse 2 - General Ulcer CM Notes Start: 11/09/22 08:51 Freq: Status: Active Protocol: Activity Type Activity Date Activity User E-sign Co-sign Detail Recorded Client Recorded Date Recorded By Document 11/09/22 09:17 MW [id number] 11/09/22 09:31 MW 11/09/22 09:17 Wound Center Nurse 2 #15 R Med Ankle -Time 09:21 -Correct Patient Yes -Correct Side, Site, Position Yes -Correct Procedure Yes -Procedure Performed Yes -Type of Procedure Debridement -Clinical Debridement Subcutaneous -Tissue Removed Subcutaneous -Post Debridement (cm) - Length 1.0 -Post Debridement (cm) - Width 0.3 -Post Debridement (cm) - Depth 0.1 -Total Square (Post) (cm) 0.30 -Area of Debridement (cm) - Length 1.0 -Area of Debridement (cm) - Width 0.3 -Total Square (Area) (cm) 0.30 -Tunneling No -Undermining/Tunneling No -Circular Undermining No -Wound/Ulcer Outcome Not Healed -Ulcer Cleansing Rinsed/ Irrigated with Saline -Foul Odor after Cleansing No -Bioengineered Tissue No -Bleeding Controlled with Pressure -Treatment Response Procedure Tolerated Well -Offloading No -Debridement - Subq, 1st 20sq cm Yes #11 Medial Inferior LLE -Time 09:21 -Correct Patient Yes -Correct Side, Site, Position Yes -Correct Procedure Yes -Procedure Performed Yes -Type of Procedure Debridement -Clinical Debridement Subcutaneous -Tissue Removed Subcutaneous -Post Debridement (cm) - Length 2.3 -Post Debridement (cm) - Width 0.5 -Post Debridement (cm) - Depth 0.1 -Total Square (Post) (cm) 1.15 -Area of Debridement (cm) - Length 2.3 -Area of Debridement (cm) - Width 0.5 -Total Square (Area) (cm) 1.15 -Tunneling No -Undermining/Tunneling No -Circular Undermining No -Wound/Ulcer Outcome Not Healed -Ulcer Cleansing Rinsed/ Irrigated with Saline -Foul Odor after Cleansing No -Bioengineered Tissue No -Bleeding Controlled with Pressure -Treatment Response Procedure Tolerated Well -Offloading No -Debridement - Subq, 1st 20sq cm No #10 Left Medial Ankle -Time 09:21 -Correct Patient Yes -Correct Side, Site, Position Yes -Correct Procedure Yes -Procedure Performed Yes -Type of Procedure Debridement -Clinical Debridement Subcutaneous -Tissue Removed Subcutaneous -Post Debridement (cm) - Length 4.0 -Post Debridement (cm) - Width 3.0 -Post Debridement (cm) - Depth 0.2 -Total Square (Post) (cm) 12.00 -Area of Debridement (cm) - Length 4.0 -Area of Debridement (cm) - Width 3.0 -Total Square (Area) (cm) 12.00 -Tunneling No -Undermining/Tunneling No -Circular Undermining No -Wound/Ulcer Outcome Not Healed -Ulcer Cleansing Rinsed/ Irrigated with Saline -Foul Odor after Cleansing No -Bioengineered Tissue No -Bleeding Controlled with Pressure -Treatment Response Procedure Tolerated Well -Offloading No -Debridement - Subq, 1st 20sq cm No Pain Scale: 0-10 Numeric Is Patient Pain Free? Yes - Nurse 3 - General Ulcer D/C NN Start: 11/09/22 08:51 Freq: Status: Active Protocol: Activity Type Activity Date Activity User E-sign Co-sign Detail Recorded Client Recorded Date Recorded By Document 11/09/22 09:36 PA [id number] 11/09/22 09:38 PA 11/09/22 09:36 Wound Care Nurse 3 #15 R Med Ankle -Primary Dressing Applied Aquacel AG 4x4 -Other Dressing pt brings own keramax -Primary Dressing Covered/Secured with Dry Gauze & Roll Gauze, Secured with Tape -Aquacel AG 4x4 1 Pain Scale: 0-10 Numeric Is Patient Pain Free? Yes WC - Visit Discharge Discharge Condition Stable Ambulatory Status Ambulatory Medication Reconcilliation completed & No provided to patient/care provider Clinical Summary of Care Provided Yes Additional Wound Wound debrided: Lefr Medial Ankle Type of Debridement: Excisional debridement Anesthesia Used: 4% Lidocaine Solution Depth: Down to and including healthy tissue and in the subcutaneous layer Percentage of wound debrided: 100 Instrument Used: 5mm curette Tissue Removed: Slough and devitalized tissue Severity: Fat Layer Exposed Amount of bleeding with debridement: Mild Bleeding Controlled with: Pressure Patient tolerated procedure: Patient tolerated procedure well Additional Wound Wound debrided: Left lower extremity ( Inferior ) Type of Debridement: Excisional debridement Anesthesia Used: 4% Lidocaine Solution Depth: Down to and including healthy tissue and in the subcutaneous layer Percentage of wound debrided: 100 Instrument Used: 5mm curette Tissue Removed: Slough and devitalized tissue Severity: Fat Layer Exposed Amount of bleeding with debridement: Mild Bleeding Controlled with: Pressure Patient tolerated procedure: Patient tolerated procedure well Assessment/Plan Assessment/Plan (1) Ulcer of left lower extremity with fat layer exposed: CODE(S): L97.922 - Non-pressure chronic ulcer of unspecified part of left lower leg with fat layer exposed (2) Ulcer of right lower extremity with fat layer exposed: CODE(S): L97.912 - Non-pressure chronic ulcer of unspecified part of right lower leg with fat layer exposed (3) PVD (peripheral vascular disease): CODE(S): I73.9 - Peripheral vascular disease, unspecified (4) Chronic venous insufficiency: CODE(S): I87.2 - Venous insufficiency (chronic) (peripheral) (5) Delayed wound healing: CODE(S): T14.8XXD - Other injury of unspecified body region, subsequent encounter PLAN: Plan Debridement done as documented above, procedure was well-tolerated. Improving. Continue Aquacel and care max to all other ulcers. Change daily to twice daily depending on drainage. Cover Right lower extremity ulcer with adaptic due to scabbing. Continue mupirocin ointment as well. Continue use of compression stockings, leg elevation and exercise. Increased protein intake, protein supplements, zinc and vitamin C also recommended. Continue multivitamins. His questions were answered and he was advised to call with any further questions or concerns. Follow-up in 2 weeks. This note was generated with Track[employer] dictation software. It may contain incorrect words, spelling, and punctuation that were not noted in checking the note before signing.
== END 2022-11-28 23:59 | disposition home or self-care (01) ==
LOC: WC 09:17
PROVIDERS: PCP Family Medicine; Visit Provider Internal Medicine
DX: I87.313 Chronic venous hypertension (idiopathic) with ulcer of bilateral lower extremity (principal); L97.322 Non-pressure chronic ulcer of left ankle with fat layer exposed; L97.222 Non-pressure chronic ulcer of left calf with fat layer exposed
CPT/HCPCS: 11042

== ENCOUNTER 2022-12-21 08:00 | Outpatient (RCR) | payer BC, SELFPAY ==
[2022-11-29 00:26] VITALS: BP 139/77; PULSE 81; RESP 16; TEMP 36.6; O2SAT 99; BMI 31.4
[2022-11-30 08:50] VITALS: BP 152/79; PULSE 85; RESP 16; TEMP 36.6; BMI 31.4
--- NOTE | 2022-11-30 10:44 | PCM.WC.PN ---
History of Present Illness Date of Service: 11/30/22 Chief Complaint: ulcers to the left lower leg History of Wound: This is a 54-year-old male presents to wound healing center with a long-standing history of chronic venous insufficiency, chronic venous hypertension, lower extremity edema, lower extremity pain, and chronic left lower extremity ulcer. The patient has previously undergone endovenous laser ablation of the left and right great saphenous vein, the small saphenous vein, the left accessory saphenous vein, and an incompetent left calf methods analyst data processing vein located 15 cm proximal to the left medial malleolus. He is currently wearing graduated compression stockings which are documented to be 20-30 mmHg compression and these are thigh high. He reports great compliance with use. He is also had previous arterial work-up with no intervention recommended by letter, his vascular surgeon. He denies taking nutritional supplementation. He saw dermatology and had a biopsy of the ulcer site. He also was previously treated by infectious disease for various contaminations and infections. He is not antibiotics at this time nor does he have any redness or odor coming from the wound. He denies fever, chill, nausea, vomiting, loss of appetite. 05/18/22: Mr. Jeronimo presents with a new right lower extremity ulceration. He states that this has been present for months and he has been trying to manage it at home without any significant improvement. Opened up months ago, no known precipitating factor. Has been applying wound dressings without any significant improvement. He reports increased drainage. Denies significant pain. No chills, fever or feeling of unwell. Progress of Wound: Improving ulcers, no new concerns at this time. Objective Data Objective Data Vital Signs: Vital Signs Temp Pulse Resp BP Pulse Ox O2 Del Method 97.8 F 85 16 152/79 H 99 Room Air 11/30/22 08:50 11/30/22 08:50 11/30/22 08:50 11/30/22 08:50 11/29/22 00:26 11/30/22 08:50 Oxygen Delivery Method Room Air Body Mass Index (BMI) 31.4 Charges/Coding Procedures Integumentary 111xxx-113xx: [id number] [place] subq tissue 20 sq cm/< Physical Exam Const alert, oriented x3 and no apparent distress General Appearance: cooperative and comfortable Orientation / Consciousness: awake HEENT normocephalic Head and Scalp: normal to inspection, normocephalic and atraumatic Face and Sinus: normal facial exam Eyes EOMs intact bilaterally Neck full ROM and supple General: normal visual inspection Resp normal respiratory effort Effort and Inspection: able to speak in complete sentences GI non-tender Extremity normal to inspection General Extremity: edema Skin Wounds: wounds noted Neuro oriented x3 and CN's II-XII intact bilaterally Psych mental status grossly normal Appearance: grossly normal Debridement Note Debridement Note Wound debrided: Right Lower Extremity Type of Debridement: Excisional debridement Anesthesia Used: 4% Lidocaine Solution Depth: Down to and including healthy tissue and in the subcutaneous layer Percentage of wound debrided: 100 Instrument Used: 3mm curette Tissue Removed: Slough and devitalized tissue Severity: Fat Layer Exposed Amount of bleeding with debridement: Mild Bleeding Controlled with: Pressure Patient tolerated procedure: Patient tolerated procedure well Post-Debridement Measurements and Additional Note: Post-Debridement Measurements/Treatment - Nurse 1 - General Ulcer Assessment Start: 11/30/22 08:50 Freq: Status: Active Protocol: SHANTA Activity Type Activity Date Activity User E-sign Co-sign Detail Recorded Client Recorded Date Recorded By Document 11/30/22 08:50 [facility] [id number] 11/30/22 09:00 [facility] 11/30/22 08:50 - Today's Visit Information Type of service Follow-up Visit (Physician/FORM SETTER/DRIVER ) Arrival Mode Ambulatory Transfer Assistance None Patient Identification Verified (Name & Yes ) Patient Requires Transmission-Based No Precautions Height and Weight Body Mass Index (BMI) 31.4 BMI Classification Obese Vital Signs Temperature (97.8 F-99.1 F) 97.8 F Temperature Source Temporal Pulse Rate (60-100) 85 Pulse Location Monitor Respiratory Rate (12-18) 16 Respiratory rate source Observation Oxygen Delivery Method Room Air Blood Pressure (90/60-120/80) 152/79 H Blood Pressure Mean (mm Hg) 103 Source Monitor Position Sitting Blood Pressure Location Right Arm History Since Last Visit- (Skip if this is Patient's initial visit) Have you changed medications since your No last visit? Any new allergies or adverse reactions No Had a fall/change in ADL's that may No increase risk of falls Signs or symptoms of abuse and/or No neglect since last visit Have you been in the hospital since your No last visit? Has dressing in place as prescribed Yes Has compression in place as prescribed Yes Has offloadiing in place as prescribed N/A Experienced any changes in pain level or No management Left Footwear Regular Shoe Right Footwear Regular Shoe Pain Scale: 0-10 Numeric Is Patient Pain Free? Yes WC - Nurse 1 - General Ulcer Measurement Start: 11/30/22 08:50 Freq: Status: Active Protocol: Activity Type Activity Date Activity User E-sign Co-sign Detail Recorded Client Recorded Date Recorded By Document 11/30/22 08:50 [facility] [id number] 11/30/22 09:00 [facility] 11/30/22 08:50 Wound Center Nurse 1 #15 R Med Ankle -Combined with other wound No -Current Size (cm) - Length 0.1 -Current Size (cm) - Width 0.1 -Current Size (cm) - Depth 0.1 -Total Square Cm 0.01 -Date of Last Picture (Recall this 11/30/22 field) -Photo Taken Yes -Epithelialization Large 67-100% -Tunneling No -Undermining/Tunneling No -Circular Undermining No -Exudate Amt Small -Exudate Type Serous -Wound Margin Flat & Intact -Granulation Amt Large (67-100%) -Granulation Quality [place] -Slough/Fibrin No -Necrosis Amt Small (1-33%) -Necrotic Tissue Type Adherent Slough -Texture (Ara-wound Skin Appearance) Assessed, Scarring -Moisture (Ara-wound Skin Appearance) Assessed,Dry/ Scaly -Color (Ara-wound Skin Appearance) Assessed -Temperature (Ara-wound Skin No Abnormality Appearance) (Pt Warm) -Tenderness on Palpation (Ara-wound No Skin Appearance) -Ulcer Cleansing Rinsed/ Irrigated with Saline -Foul Odor after Cleansing No -Anesthetic Used 5% Lidocaine Gel #11 Medial Inferior LLE -Combined with other wound No -Current Size (cm) - Length 1.5 -Current Size (cm) - Width 0.9 -Current Size (cm) - Depth 0.1 -Total Square Cm 1.35 -Date of Last Picture (Recall this 11/30/22 field) -Photo Taken Yes -Epithelialization Small 1-33% -Tunneling No -Undermining/Tunneling No -Circular Undermining No -Exudate Amt Small -Exudate Type Serosanguineous -Wound Margin Distinct, Outline Attached -Granulation Amt Medium (34-66%) -Granulation Quality Red -Slough/Fibrin Yes -Necrosis Amt Medium (34-66%) -Necrotic Tissue Type Adherent Slough -Texture (Ara-wound Skin Appearance) Assessed, Scarring -Moisture (Ara-wound Skin Appearance) Assessed,Dry/ Scaly -Color (Ara-wound Skin Appearance) Assessed, Hemosiderin Staining -Temperature (Ara-wound Skin No Abnormality Appearance) (Pt Warm) -Tenderness on Palpation (Ara-wound No Skin Appearance) -Ulcer Cleansing Rinsed/ Irrigated with Saline -Foul Odor after Cleansing No -Anesthetic Used 5% Lidocaine Gel #10 Left Medial Ankle -Combined with other wound No -Current Size (cm) - Length 4.7 -Current Size (cm) - Width 3.3 -Current Size (cm) - Depth 0.2 -Total Square Cm 15.51 -Date of Last Picture (Recall this 11/30/22 field) -Photo Taken Yes -Epithelialization None Present -Tunneling No -Undermining/Tunneling No -Circular Undermining No -Exudate Amt Medium -Exudate Type Serosanguineous -Wound Margin Distinct, Outline Attached -Granulation Amt Medium (34-66%) -Granulation Quality Red -Slough/Fibrin Yes -Necrosis Amt Medium (34-66%) -Necrotic Tissue Type Adherent Slough -Texture (Ara-wound Skin Appearance) Assessed, Scarring -Moisture (Ara-wound Skin Appearance) Assessed,Dry/ Scaly -Color (Ara-wound Skin Appearance) Assessed, Hemosiderin Staining -Temperature (Ara-wound Skin No Abnormality Appearance) (Pt Warm) -Tenderness on Palpation (Ara-wound No Skin Appearance) -Ulcer Cleansing Rinsed/ Irrigated with Saline -Foul Odor after Cleansing No -Anesthetic Used 5% Lidocaine Gel Right Calf (cm) 36.7 Right Ankle (cm) 21.7 Left Calf (cm) 35.7 Left Ankle (cm) 22.8 WC - Nurse 2 - General Ulcer CM Notes Start: 11/30/22 08:50 Freq: Status: Active Protocol: Activity Type Activity Date Activity User E-sign Co-sign Detail Recorded Client Recorded Date Recorded By Document 11/30/22 09:24 MW [id number] 11/30/22 09:36 MW 11/30/22 09:24 Wound Center Nurse 2 #15 R Med Ankle -Time 09:25 -Correct Patient Yes -Correct Side, Site, Position Yes -Correct Procedure Yes -Procedure Performed Yes -Type of Procedure Debridement -Clinical Debridement Subcutaneous -Tissue Removed Subcutaneous -Post Debridement (cm) - Length 0.9 -Post Debridement (cm) - Width 0.2 -Post Debridement (cm) - Depth 0.1 -Total Square (Post) (cm) 0.18 -Area of Debridement (cm) - Length 0.9 -Area of Debridement (cm) - Width 0.2 -Total Square (Area) (cm) 0.18 -Tunneling No -Undermining/Tunneling No -Circular Undermining No -Wound/Ulcer Outcome Not Healed -Ulcer Cleansing Rinsed/ Irrigated with Saline -Foul Odor after Cleansing No -Bioengineered Tissue No -Bleeding Controlled with Pressure -Treatment Response Procedure Tolerated Well -Offloading No -Debridement - Subq, 20sq cm Yes #11 Medial Inferior LLE -Time 09:26 -Correct Patient Yes -Correct Side, Site, Position Yes -Correct Procedure Yes -Procedure Performed Yes -Type of Procedure Debridement -Clinical Debridement Subcutaneous -Tissue Removed Subcutaneous -Post Debridement (cm) - Length 1.8 -Post Debridement (cm) - Width 0.4 -Post Debridement (cm) - Depth 0.1 -Total Square (Post) (cm) 0.72 -Area of Debridement (cm) - Length 1.8 -Area of Debridement (cm) - Width 0.4 -Total Square (Area) (cm) 0.72 -Tunneling No -Undermining/Tunneling No -Circular Undermining No -Wound/Ulcer Outcome Not Healed -Ulcer Cleansing Rinsed/ Irrigated with Saline -Foul Odor after Cleansing No -Bioengineered Tissue No -Bleeding Controlled with Pressure -Offloading No -Debridement - Subq, 20sq cm No #10 Left Medial Ankle -Time 09:26 -Correct Patient Yes -Correct Side, Site, Position Yes -Correct Procedure Yes -Procedure Performed Yes -Type of Procedure Debridement -Clinical Debridement Subcutaneous -Tissue Removed Subcutaneous -Post Debridement (cm) - Length 3.5 -Post Debridement (cm) - Width 3.0 -Post Debridement (cm) - Depth 0.2 -Total Square (Post) (cm) 10.50 -Area of Debridement (cm) - Length 3.5 -Area of Debridement (cm) - Width 3.0 -Total Square (Area) (cm) 10.50 -Tunneling No -Undermining/Tunneling No -Circular Undermining No -Wound/Ulcer Outcome Not Healed -Ulcer Cleansing Rinsed/ Irrigated with Saline -Foul Odor after Cleansing No -Bioengineered Tissue No -Bleeding Controlled with Pressure -Treatment Response Procedure Tolerated Well -Offloading No -Debridement - Subq, 1st 20sq cm No Pain Scale: 0-10 Numeric Is Patient Pain Free? Yes - Nurse 3 - General Ulcer D/C NN Start: 11/30/22 08:50 Freq: Status: Active Protocol: Activity Type Activity Date Activity User E-sign Co-sign Detail Recorded Client Recorded Date Recorded By Document 11/30/22 09:45 [facility] [id number] 11/30/22 09:46 [facility] 11/30/22 09:45 Wound Care Center Nurse 3 #15 R Med Ankle -Ulcer Cleansing Rinsed/ Irrigated with Saline -Foul Odor after Cleansing No -Primary Dressing Applied NonAdherent Contact Layer -Other Dressing abd -Primary Dressing Covered/Secured with Secured with Tape #11 Medial Inferior LLE -Ulcer Cleansing Rinsed/ Irrigated with Saline -Foul Odor after Cleansing No -Primary Dressing Applied Aquacel AG 4x4 -Other Dressing bactroban, kerramax -Aquacel AG 4x4 1 #10 Left Medial Ankle -Ulcer Cleansing Rinsed/ Irrigated with Saline -Foul Odor after Cleansing No -Primary Dressing Applied Aquacel AG 4x4 -Other Dressing bactroban, kerramax -Primary Dressing Covered/Secured with Secured with Tape -Aquacel AG 4x4 0 BLE -Other PT APPLIED OWN COMPRESSION STOCKINGS Treatment Response Procedure Tolerated Well Pain Scale: 0-10 Numeric Is Patient Pain Free? Yes - Visit Discharge Discharge Condition Stable Ambulatory Status Ambulatory Transportation Private Auto Additional Wound Wound debrided: Lefr Medial Ankle Type of Debridement: Excisional debridement Anesthesia Used: 4% Lidocaine Solution Depth: Down to and including healthy tissue and in the subcutaneous layer Percentage of wound debrided: 100 Instrument Used: 5mm curette Tissue Removed: Slough and devitalized tissue Severity: Fat Layer Exposed Amount of bleeding with debridement: Mild Bleeding Controlled with: Pressure Patient tolerated procedure: Patient tolerated procedure well Additional Wound Wound debrided: Left lower extremity ( Inferior ) Type of Debridement: Excisional debridement Anesthesia Used: 4% Lidocaine Solution Depth: Down to and including healthy tissue and in the subcutaneous layer Percentage of wound debrided: 100 Instrument Used: 5mm curette Tissue Removed: Slough and devitalized tissue Severity: Fat Layer Exposed Amount of bleeding with debridement: Mild Bleeding Controlled with: Pressure Patient tolerated procedure: Patient tolerated procedure well Assessment/Plan Assessment/Plan (1) Ulcer of left lower extremity with fat layer exposed: CODE(S): L97.922 - Non-pressure chronic ulcer of unspecified part of left lower leg with fat layer exposed (2) Ulcer of right lower extremity with fat layer exposed: CODE(S): L97.912 - Non-pressure chronic ulcer of unspecified part of right lower leg with fat layer exposed (3) PVD (peripheral vascular disease): CODE(S): I73.9 - Peripheral vascular disease, unspecified (4) Chronic venous insufficiency: CODE(S): I87.2 - Venous insufficiency (chronic) (peripheral) (5) Delayed wound healing: CODE(S): T14.8XXD - Other injury of unspecified body region, subsequent encounter PLAN: Plan Debridement done as documented above, procedure was well-tolerated. Improving. Continue Aquacel and care max to all left lower extremity ulcers. Change daily to twice daily depending on drainage. Adaptic and gauze to right lower extremity ulcer. Continue mupirocin ointment as well. Continue use of compression stockings, leg elevation and exercise. Increased protein intake, protein supplements, zinc and vitamin C also recommended. Continue multivitamins. His questions were answered and he was advised to call with any further questions or concerns. Follow-up in 2 weeks. This note was generated with [employer] dictation software. It may contain incorrect words, spelling, and punctuation that were not noted in checking the note before signing.
[2022-12-14 08:38] VITALS: BP 161/91; PULSE 90; RESP 20; TEMP 36.2; BMI 31.4
--- NOTE | 2022-12-14 10:01 | PCM.WC.PN ---
History of Present Illness Date of Service: 12/14/22 Chief Complaint: ulcers to the left lower leg History of Wound: This is a 54-year-old male presents to wound healing center with a long-standing history of chronic venous insufficiency, chronic venous hypertension, lower extremity edema, lower extremity pain, and chronic left lower extremity ulcer. 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 He is currently wearing graduated compression stockings which are documented to be 20-30 mmHg compression and these are thigh high. He reports great compliance with use. He is also had previous arterial work-up with no intervention recommended by letter, his vascular surgeon. He denies taking nutritional supplementation. He saw dermatology and had a biopsy of the ulcer site. He also was previously treated by infectious disease for various contaminations and infections. He is not antibiotics at this time nor does he have any redness or odor coming from the wound. He denies fever, chill, nausea, vomiting, loss of appetite. 05/18/22: Mr. Jeronimo presents with a new right lower extremity ulceration. He states that this has been present for months and he has been trying to manage it at home without any significant improvement. Opened up months ago, no known precipitating factor. Has been applying wound dressings without any significant improvement. He reports increased drainage. Denies significant pain. No chills, fever or feeling of unwell. Progress of Wound: Improving ulcers, no new concerns at this time. Objective Data Objective Data Vital Signs: Vital Signs Temp Pulse Resp BP Pulse Ox O2 Del Method 97.1 F L 90 20 H 161/91 H 99 Room Air 12/14/22 08:38 12/14/22 08:38 12/14/22 08:38 12/14/22 08:38 11/29/22 00:26 11/30/22 08:50 Oxygen Delivery Method Room Air Body Mass Index (BMI) 31.4 Charges/Coding Procedures Integumentary 111xxx-113xx: [id number] [place] subq tissue 20 sq cm/< Physical Exam Const alert, oriented x3 and no apparent distress General Appearance: cooperative and comfortable Orientation / Consciousness: awake HEENT normocephalic Head and Scalp: normal to inspection, normocephalic and atraumatic Face and Sinus: normal facial exam Eyes EOMs intact bilaterally Neck full ROM and supple General: normal visual inspection Resp normal respiratory effort Effort and Inspection: able to speak in complete sentences GI non-tender Extremity normal to inspection General Extremity: edema Skin Wounds: wounds noted Neuro oriented x3 and CN's II-XII intact bilaterally Psych mental status grossly normal Appearance: grossly normal Debridement Note Debridement Note Wound debrided: Left medial ankle Type of Debridement: Excisional debridement Anesthesia Used: 5% Lidocaine Gel Depth: Down to and including healthy tissue and in the subcutaneous layer Percentage of wound debrided: 100 Instrument Used: 5mm curette Tissue Removed: Slough and devitalized tissue Severity: Fat Layer Exposed Amount of bleeding with debridement: Mild Bleeding Controlled with: Pressure Patient tolerated procedure: Patient tolerated procedure well Post-Debridement Measurements and Additional Note: Post-Debridement Measurements/Treatment - Nurse 1 - General Ulcer Assessment Start: 11/30/22 08:50 Freq: Status: Active Protocol: SHANTA Activity Type Activity Date Activity User E-sign Co-sign Detail Recorded Client Recorded Date Recorded By Document 11/30/22 08:50 [facility] [id number] 11/30/22 09:00 BMF Document 12/14/22 08:38 DL [id number] 12/14/22 08:49 DL 11/30/22 12/14/22 08:50 08:38 - Today's Visit Information Type of service Follow-up Visit Follow-up Visit (Physician/GROUND PRODUCTS DIRECTOR (Physician/GROUND PRODUCTS DIRECTOR ) ) Arrival Mode Ambulatory Ambulatory Transfer Assistance None None Patient Identification Verified (Name & Yes Yes ) Patient Requires Transmission-Based No No Precautions Height and Weight Body Mass Index (BMI) 31.4 31.4 BMI Classification Obese Obese Vital Signs Temperature (97.8 F-99.1 F) 97.8 F 97.1 F L Temperature Source Temporal Temporal Pulse Rate (60-100) 85 90 Pulse Location Monitor Monitor Respiratory Rate (12-18) 16 20 H Respiratory rate source Observation Observation Oxygen Delivery Method Room Air Blood Pressure (90/60-120/80) 152/79 H 161/91 H Blood Pressure Mean (mm Hg) 103 114 Source Monitor Monitor Position Sitting Blood Pressure Location Right Arm History Since Last Visit- (Skip if this is Patient's initial visit) Have you changed medications since your No No last visit? Any new allergies or adverse reactions No No Had a fall/change in ADL's that may No No increase risk of falls Signs or symptoms of abuse and/or No No neglect since last visit Have you been in the hospital since your No No last visit? Has dressing in place as prescribed Yes Yes Has compression in place as prescribed Yes Yes Has offloadiing in place as prescribed N/A N/A Experienced any changes in pain level or No No management Left Footwear Regular Shoe Right Footwear Regular Shoe Pain Scale: 0-10 Numeric Is Patient Pain Free? Yes Yes WC - Nurse 1 - General Ulcer Measurement Start: 11/30/22 08:50 Freq: Status: Active Protocol: Activity Type Activity Date Activity User E-sign Co-sign Detail Recorded Client Recorded Date Recorded By Document 11/30/22 08:50 [facility] [id number] 11/30/22 09:00 BMF Document 12/14/22 08:38 DL [id number] 12/14/22 08:49 DL 11/30/22 12/14/22 08:50 08:38 Wound Center Nurse 1 #15 R Med Ankle -Combined with other wound No -Current Size (cm) - Length 0.1 0.1 -Current Size (cm) - Width 0.1 0.1 -Current Size (cm) - Depth 0.1 0.1 -Total Square Cm 0.01 0.01 -Date of Last Picture (Recall this 11/30/22 field) -Photo Taken Yes No -Epithelialization Large 67-100% -Tunneling No -Undermining/Tunneling No -Circular Undermining No -Exudate Amt Small None Present -Exudate Type Serous -Wound Margin Flat & Intact Flat & Intact -Granulation Amt Large (67-100%) Small (1-33%) -Granulation Quality [place] -Slough/Fibrin No -Necrosis Amt Small (1-33%) None Present (0 %) -Necrotic Tissue Type Adherent Slough -Structure Exposed N/A -Texture (Ara-wound Skin Appearance) Assessed, Scarring Scarring -Moisture (Ara-wound Skin Appearance) Assessed,Dry/ Dry/Scaly Scaly -Color (Ara-wound Skin Appearance) Assessed Hemosiderin Staining -Temperature (Ara-wound Skin No Abnormality No Abnormality Appearance) (Pt Warm) (Pt Warm) -Tenderness on Palpation (Ara-wound No No Skin Appearance) -Ulcer Cleansing Rinsed/ Not Cleansed Irrigated with Saline -Foul Odor after Cleansing No No -Anesthetic Used 5% Lidocaine 5% Lidocaine Gel Gel #11 Medial Inferior LLE -Combined with other wound No -Current Size (cm) - Length 1.5 1.1 -Current Size (cm) - Width 0.9 0.2 -Current Size (cm) - Depth 0.1 0.1 -Total Square Cm 1.35 0.22 -Date of Last Picture (Recall this 11/30/22 field) -Photo Taken Yes No -Epithelialization Small 1-33% -Tunneling No -Undermining/Tunneling No -Circular Undermining No -Exudate Amt Small Small -Exudate Type Serosanguineous Serosanguineous -Wound Margin Distinct, Distinct, Outline Outline Attached Attached -Granulation Amt Medium (34-66%) Large (67-100%) -Granulation Quality [place] -Slough/Fibrin Yes -Necrosis Amt Medium (34-66%) Small (1-33%) -Necrotic Tissue Type Adherent Slough Adherent Slough -Structure Exposed N/A -Texture (Ara-wound Skin Appearance) Assessed, Scarring Scarring -Moisture (Ara-wound Skin Appearance) Assessed,Dry/ Dry/Scaly Scaly -Color (Ara-wound Skin Appearance) Assessed, Hemosiderin Hemosiderin Staining Staining -Temperature (Ara-wound Skin No Abnormality No Abnormality Appearance) (Pt Warm) (Pt Warm) -Tenderness on Palpation (Ara-wound No No Skin Appearance) -Ulcer Cleansing Rinsed/ Soap and Water Irrigated with Saline -Foul Odor after Cleansing No No -Anesthetic Used 5% Lidocaine 5% Lidocaine Gel Gel #10 Left Medial Ankle -Combined with other wound No -Current Size (cm) - Length 4.7 4.4 -Current Size (cm) - Width 3.3 2.8 -Current Size (cm) - Depth 0.2 0.3 -Total Square Cm 15.51 12.32 -Date of Last Picture (Recall this 11/30/22 field) -Photo Taken Yes No -Epithelialization None Present -Tunneling No -Undermining/Tunneling No -Circular Undermining No -Exudate Amt Medium Medium -Exudate Type Serosanguineous Serosanguineous -Wound Margin Distinct, Distinct, Outline Outline Attached Attached -Granulation Amt Medium (34-66%) Medium (34-66%) -Granulation Quality Red [place] -Slough/Fibrin Yes -Necrosis Amt Medium (34-66%) Medium (34-66%) -Necrotic Tissue Type Adherent Slough Adherent Slough -Structure Exposed N/A -Texture (Ara-wound Skin Appearance) Assessed, Scarring Scarring -Moisture (Ara-wound Skin Appearance) Assessed,Dry/ Dry/Scaly Scaly -Color (Ara-wound Skin Appearance) Assessed, Hemosiderin Hemosiderin Staining Staining -Temperature (Ara-wound Skin No Abnormality No Abnormality Appearance) (Pt Warm) (Pt Warm) -Tenderness on Palpation (Ara-wound No Skin Appearance) -Ulcer Cleansing Rinsed/ Soap and Water Irrigated with Saline -Foul Odor after Cleansing No No -Anesthetic Used 5% Lidocaine 5% Lidocaine Gel Gel Right Calf (cm) 36.7 37.2 Right Ankle (cm) 21.7 22 Left Calf (cm) 35.7 35.5 Left Ankle (cm) 22.8 23.1 WC - Nurse 2 - General Ulcer CM Notes Start: 11/30/22 08:50 Freq: Status: Active Protocol: Activity Type Activity Date Activity User E-sign Co-sign Detail Recorded Client Recorded Date Recorded By Document 11/30/22 09:24 MW [id number] 11/30/22 09:36 MW Document 12/14/22 09:21 MW [id number] 12/14/22 09:28 MW 11/30/22 12/14/22 09:24 09:21 Wound Center Nurse 2 #15 R Med Ankle -Time 09:25 09:21 -Correct Patient Yes Yes -Correct Side, Site, Position Yes Yes -Correct Procedure Yes Yes -Procedure Performed Yes No -Type of Procedure Debridement -Clinical Debridement Subcutaneous -Tissue Removed Subcutaneous -Post Debridement (cm) - Length 0.9 0.1 -Post Debridement (cm) - Width 0.2 0.1 -Post Debridement (cm) - Depth 0.1 0.1 -Total Square (Post) (cm) 0.18 0.01 -Area of Debridement (cm) - Length 0.9 -Area of Debridement (cm) - Width 0.2 -Total Square (Area) (cm) 0.18 -Tunneling No No -Undermining/Tunneling No No -Circular Undermining No No -Wound/Ulcer Outcome Not Healed Not Healed -Ulcer Cleansing Rinsed/ Not Cleansed Irrigated with Saline -Foul Odor after Cleansing No -Bioengineered Tissue No -Bleeding Controlled with Pressure -Treatment Response Procedure Tolerated Well -Offloading No -Debridement - Subq, 1st 20sq cm Yes #11 Medial Inferior LLE -Time : -Correct Patient Yes Yes -Correct Side, Site, Position Yes Yes -Correct Procedure Yes Yes -Procedure Performed Yes Yes -Type of Procedure Debridement Debridement -Clinical Debridement Subcutaneous Subcutaneous -Tissue Removed Subcutaneous Subcutaneous -Post Debridement (cm) - Length 1.8 1.5 -Post Debridement (cm) - Width 0.4 0.3 -Post Debridement (cm) - Depth 0.1 0.1 -Total Square (Post) (cm) 0.72 0.45 -Area of Debridement (cm) - Length 1.8 1.5 -Area of Debridement (cm) - Width 0.4 0.3 -Total Square (Area) (cm) 0.72 0.45 -Tunneling No No -Undermining/Tunneling No No -Circular Undermining No No -Wound/Ulcer Outcome Not Healed Not Healed -Ulcer Cleansing Rinsed/ Rinsed/ Irrigated with Irrigated with Saline Saline -Foul Odor after Cleansing No No -Bioengineered Tissue No No -Bleeding Controlled with Pressure Pressure -Treatment Response Procedure Tolerated Well -Offloading No No -Debridement - Subq, 1st 20sq cm No Yes #10 Left Medial Ankle -Time 09:22 -Correct Patient Yes Yes -Correct Side, Site, Position Yes Yes -Correct Procedure Yes Yes -Procedure Performed Yes Yes -Type of Procedure Debridement Debridement -Clinical Debridement Subcutaneous Subcutaneous -Tissue Removed Subcutaneous Subcutaneous -Post Debridement (cm) - Length 3.5 3.4 -Post Debridement (cm) - Width 3.0 3.0 -Post Debridement (cm) - Depth 0.2 0.2 -Total Square (Post) (cm) 10.50 10.20 -Area of Debridement (cm) - Length 3.5 3.4 -Area of Debridement (cm) - Width 3.0 3.0 -Total Square (Area) (cm) 10.50 10.20 -Tunneling No No -Undermining/Tunneling No No -Circular Undermining No No -Wound/Ulcer Outcome Not Healed Not Healed -Ulcer Cleansing Rinsed/ Rinsed/ Irrigated with Irrigated with Saline Saline -Foul Odor after Cleansing No No -Bioengineered Tissue No No -Bleeding Controlled with Pressure Pressure -Treatment Response Procedure Procedure Tolerated Well Tolerated Well -Offloading No No -Debridement - Subq, 1st 20sq cm No No Pain Scale: 0-10 Numeric Is Patient Pain Free? Yes Yes - Nurse 3 - General Ulcer D/C NN Start: 11/30/22 08:50 Freq: Status: Active Protocol: Activity Type Activity Date Activity User E-sign Co-sign Detail Recorded Client Recorded Date Recorded By Document 11/30/22 09:45 BMF [id number] 11/30/22 09:46 BMF Document 12/14/22 09:36 DL [id number] 12/14/22 09:38 DL 11/30/22 12/14/22 09:45 09:36 Wound Care Center Nurse 3 #15 R Med Ankle -Ulcer Cleansing Rinsed/ Rinsed/ Irrigated with Irrigated with Saline Saline -Foul Odor after Cleansing No No -Primary Dressing Applied NonAdherent NonAdherent Contact Layer Contact Layer -Other Dressing abd -Primary Dressing Covered/Secured with Secured with Dry Gauze, Tape Secured with Tape #11 Medial Inferior LLE -Ulcer Cleansing Rinsed/ Rinsed/ Irrigated with Irrigated with Saline Saline -Foul Odor after Cleansing No No -Primary Dressing Applied Aquacel AG 4x4 -Other Dressing bactroban, bactroban/ kerramax kerramax/ aquacel ag -Primary Dressing Covered/Secured with Dry Gauze -Aquacel AG 4x4 1 #10 Left Medial Ankle -Ulcer Cleansing Rinsed/ Rinsed/ Irrigated with Irrigated with Saline Saline -Foul Odor after Cleansing No No -Primary Dressing Applied Aquacel AG 4x4 -Other Dressing bactroban, bactroban, kerramax aqaucel ag, kerramax -Primary Dressing Covered/Secured with Secured with Dry Gauze Tape -Aquacel AG 4x4 0 BLE -Stockings Yes -Other PT APPLIED OWN COMPRESSION STOCKINGS Treatment Response Procedure Procedure Tolerated Well Tolerated Well Pain Scale: 0-10 Numeric Is Patient Pain Free? Yes Yes - Visit Discharge Discharge Condition Stable Stable Ambulatory Status Ambulatory Ambulatory Transportation Private Auto Private Auto Additional Wound Wound debrided: Left lower extremity inferior Type of Debridement: Excisional debridement Anesthesia Used: 4% Lidocaine Solution Depth: Down to and including healthy tissue and in the subcutaneous layer Percentage of wound debrided: 100 Instrument Used: 5mm curette Tissue Removed: Slough and devitalized tissue Severity: Fat Layer Exposed Amount of bleeding with debridement: Mild Bleeding Controlled with: Pressure Patient tolerated procedure: Patient tolerated procedure well Assessment/Plan Assessment/Plan (1) Ulcer of left lower extremity with fat layer exposed: CODE(S): L97.922 - Non-pressure chronic ulcer of unspecified part of left lower leg with fat layer exposed (2) Ulcer of right lower extremity with fat layer exposed: CODE(S): L97.912 - Non-pressure chronic ulcer of unspecified part of right lower leg with fat layer exposed (3) PVD (peripheral vascular disease): CODE(S): I73.9 - Peripheral vascular disease, unspecified (4) Chronic venous insufficiency: CODE(S): I87.2 - Venous insufficiency (chronic) (peripheral) (5) Delayed wound healing: CODE(S): T14.8XXD - Other injury of unspecified body region, subsequent encounter PLAN: Plan Debridement done as documented above, procedure was well-tolerated. Improving, only minimal area on the right lower extremity. Continue Aquacel and care max to all left lower extremity ulcers. Change daily to twice daily depending on drainage. Adaptic and gauze to right lower extremity ulcer. Continue mupirocin ointment as well. Continue use of compression stockings, leg elevation and exercise. Increased protein intake, protein supplements, zinc and vitamin C also recommended. Continue multivitamins. His questions were answered and he was advised to call with any further questions or concerns. Follow-up in 1 week. This note was generated with [employer] dictation software. It may contain incorrect words, spelling, and punctuation that were not noted in checking the note before signing.
[2022-12-21 08:06] VITALS: BP 155/77; PULSE 95; RESP 16; TEMP 36.6; BMI 31.4
--- NOTE | 2022-12-21 08:36 | PN.PCM_ITS ---
History of Present Illness Date of Service: 12/21/22 Chief Complaint: ulcers to the left lower leg History of Wound: This is a 54-year-old male presents to wound healing center with a long-standing history of chronic venous insufficiency, chronic venous hypertension, lower extremity edema, lower extremity pain, and chronic left lower extremity ulcer. The patient has previously undergone endovenous laser ablation of the left and right great saphenous vein, the small saphenous vein, the left accessory saphenous vein, and an incompetent left calf automobile parker vein located 15 cm proximal to the left medial malleolus. He is currently wearing graduated compression stockings which are documented to be 20-30 mmHg compression and these are thigh high. He reports great compliance with use. He is also had previous arterial work-up with no intervention recommended by letter, his vascular surgeon. He denies taking nutritional supplementation. He saw dermatology and had a biopsy of the ulcer site. He also was previously treated by infectious disease for various contaminations and infections. He is not antibiotics at this time nor does he have any redness or odor coming from the wound. He denies fever, chill, nausea, vomiting, loss of appetite. 05/18/22: Mr. Jeronimo presents with a new right lower extremity ulceration. He states that this has been present for months and he has been trying to manage it at home without any significant improvement. Opened up months ago, no known precipitating factor. Has been applying wound dressings without any significant improvement. He reports increased drainage. Denies significant pain. No chills, fever or feeling of unwell. Progress of Wound: Stable ulcers, no new concerns at this time. Objective Data Objective Data Vital Signs: Vital Signs Temp Pulse Resp BP Pulse Ox O2 Del Method 98 F 95 16 155/77 H 99 Room Air 12/21/22 08:06 12/21/22 08:06 12/21/22 08:06 12/21/22 08:06 11/29/22 00:26 12/21/22 08:06 Oxygen Delivery Method Room Air Body Mass Index (BMI) 31.4 Charges/Coding Procedures Integumentary 111xxx-113xx: [id number] Lakeisha subq tissue 20 sq cm/< Physical Exam Const alert, oriented x3 and no apparent distress General Appearance: cooperative and comfortable Orientation / Consciousness: awake HEENT normocephalic Head and Scalp: normal to inspection, normocephalic and atraumatic Face and Sinus: normal facial exam Eyes EOMs intact bilaterally Neck full ROM and supple General: normal visual inspection Resp normal respiratory effort Effort and Inspection: able to speak in complete sentences GI non-tender Extremity normal to inspection General Extremity: edema Skin Wounds: wounds noted Neuro oriented x3 and CN's II-XII intact bilaterally Psych mental status grossly normal Appearance: grossly normal Debridement Note Debridement Note Wound debrided: Left medial ankle Type of Debridement: Excisional debridement Anesthesia Used: 5% Lidocaine Gel Depth: Down to and including healthy tissue and in the subcutaneous layer Percentage of wound debrided: 100 Instrument Used: 5mm curette Tissue Removed: Slough and devitalized tissue Severity: Fat Layer Exposed Amount of bleeding with debridement: Mild Bleeding Controlled with: Pressure Patient tolerated procedure: Patient tolerated procedure well Post-Debridement Measurements and Additional Note: Post-Debridement Measurements/Treatment - Nurse 1 - General Ulcer Assessment Start: 11/30/22 08:50 Freq: Status: Active Protocol: SHANTA Activity Type Activity Date Activity User E-sign Co-sign Detail Recorded Client Recorded Date Recorded By Document 11/30/22 08:50 [facility] [id number] 11/30/22 09:00 BMF Document 12/14/22 08:38 DL [id number] 12/14/22 08:49 DL Document 12/21/22 08:06 [facility] [id number] 12/21/22 08:12 BMF 11/30/22 12/14/22 12/21/22 08:50 08:38 08:06 - Today's Visit Information Type of service Follow-up Visit Follow-up Visit Follow-up Visit (Physician/OPERATIONS TRAINER (Physician/OPERATIONS TRAINER (Physician/OPERATIONS TRAINER ) ) ) Arrival Mode Ambulatory Ambulatory Ambulatory Transfer Assistance None None None Patient Identification Verified (Name & Yes Yes Yes ) Patient Requires Transmission-Based No No No Precautions Height and Weight Body Mass Index (BMI) 31.4 31.4 31.4 BMI Classification Obese Obese Obese Vital Signs Temperature (97.8 F-99.1 F) 97.8 F 97.1 F L 98 F Temperature Source Temporal Temporal Temporal Pulse Rate (60-100) 85 90 95 Pulse Location Monitor Monitor Monitor Respiratory Rate (12-18) 16 20 H 16 Respiratory rate source Observation Observation Observation Oxygen Delivery Method Room Air Room Air Blood Pressure (90/60-120/80) 152/79 H 161/91 H 155/77 H Blood Pressure Mean (mm Hg) 103 114 103 Source Monitor Monitor Monitor Position Sitting Sitting Blood Pressure Location Right Arm Right Arm History Since Last Visit- (Skip if this is Patient's initial visit) Have you changed medications since your No No No last visit? Any new allergies or adverse reactions No No No Had a fall/change in ADL's that may No No No increase risk of falls Signs or symptoms of abuse and/or No No No neglect since last visit Have you been in the hospital since your No No No last visit? Has dressing in place as prescribed Yes Yes Yes Has compression in place as prescribed Yes Yes Yes Has offloadiing in place as prescribed N/A N/A N/A Experienced any changes in pain level or No No No management Left Footwear Regular Shoe Regular Shoe Right Footwear Regular Shoe Regular Shoe Pain Scale: 0-10 Numeric Is Patient Pain Free? Yes Yes Yes WC - Nurse 1 - General Ulcer Measurement Start: 11/30/22 08:50 Freq: Status: Active Protocol: Activity Type Activity Date Activity User E-sign Co-sign Detail Recorded Client Recorded Date Recorded By Document 11/30/22 08:50 [facility] [id number] 11/30/22 09:00 BM Document 12/14/22 08:38 DL [id number] 12/14/22 08:49 DL Document 12/21/22 08:06 [facility] [id number] 12/21/22 08:12 [facility] 11/30/22 12/14/22 12/21/22 08:50 08:38 08:06 Wound Center Nurse 1 #15 R Med Ankle -Combined with other wound No No -Current Size (cm) - Length 0.1 0.1 0.1 -Current Size (cm) - Width 0.1 0.1 0.1 -Current Size (cm) - Depth 0.1 0.1 0.1 -Total Square Cm 0.01 0.01 0.01 -Date of Last Picture (Recall this 11/30/22 12/21/22 field) -Photo Taken Yes No Yes -Epithelialization Large 67-100% Large 67-100% -Tunneling No -Undermining/Tunneling No -Circular Undermining No -Exudate Amt Small None Present -Exudate Type Serous -Wound Margin Flat & Intact Flat & Intact -Granulation Amt Large (67-100%) Small (1-33%) -Granulation Quality Ivan -Slough/Fibrin No -Necrosis Amt Small (1-33%) None Present (0 %) -Necrotic Tissue Type Adherent Slough -Structure Exposed N/A -Texture (Ara-wound Skin Appearance) Assessed, Scarring Assessed, Scarring Scarring -Moisture (Ara-wound Skin Appearance) Assessed,Dry/ Dry/Scaly Assessed,Dry/ Scaly Scaly -Color (Ara-wound Skin Appearance) Assessed Hemosiderin Assessed, Staining Hemosiderin Staining -Temperature (Ara-wound Skin No Abnormality No Abnormality No Abnormality Appearance) (Pt Warm) (Pt Warm) (Pt Warm) -Tenderness on Palpation (Ara-wound No No No Skin Appearance) -Ulcer Cleansing Rinsed/ Not Cleansed Rinsed/ Irrigated with Irrigated with Saline Saline -Foul Odor after Cleansing No No No -Anesthetic Used 5% Lidocaine 5% Lidocaine 5% Lidocaine Gel Gel Gel #11 Medial Inferior LLE -Combined with other wound No No -Current Size (cm) - Length 1.5 1.1 0.4 -Current Size (cm) - Width 0.9 0.2 0.2 -Current Size (cm) - Depth 0.1 0.1 0.1 -Total Square Cm 1.35 0.22 0.08 -Date of Last Picture (Recall this 11/30/22 12/21/22 field) -Photo Taken Yes No Yes -Epithelialization Small 1-33% Medium 34-66% -Tunneling No No -Undermining/Tunneling No No -Circular Undermining No No -Exudate Amt Small Small Small -Exudate Type Serosanguineous Serosanguineous Serous -Wound Margin Distinct, Distinct, Distinct, Outline Outline Outline Attached Attached Attached -Granulation Amt Medium (34-66%) Large (67-100%) Large (67-100%) -Granulation Quality Red Ivan Red -Slough/Fibrin Yes No -Necrosis Amt Medium (34-66%) Small (1-33%) None Present (0 %) -Necrotic Tissue Type Adherent Slough Adherent Slough -Structure Exposed N/A -Texture (Ara-wound Skin Appearance) Assessed, Scarring Assessed, Scarring Scarring -Moisture (Ara-wound Skin Appearance) Assessed,Dry/ Dry/Scaly Assessed,Dry/ Scaly Scaly -Color (Ara-wound Skin Appearance) Assessed, Hemosiderin Assessed, Hemosiderin Staining Hemosiderin Staining Staining -Temperature (Ara-wound Skin No Abnormality No Abnormality No Abnormality Appearance) (Pt Warm) (Pt Warm) (Pt Warm) -Tenderness on Palpation (Ara-wound No No No Skin Appearance) -Ulcer Cleansing Rinsed/ Soap and Water Rinsed/ Irrigated with Irrigated with Saline Saline -Foul Odor after Cleansing No No No -Anesthetic Used 5% Lidocaine 5% Lidocaine 5% Lidocaine Gel Gel Gel #10 Left Medial Ankle -Combined with other wound No No -Current Size (cm) - Length 4.7 4.4 4.2 -Current Size (cm) - Width 3.3 2.8 2.8 -Current Size (cm) - Depth 0.2 0.3 0.2 -Total Square Cm 15.51 12.32 11.76 -Date of Last Picture (Recall this 11/30/22 12/21/22 field) -Photo Taken Yes No Yes -Epithelialization None Present None Present -Tunneling No No -Undermining/Tunneling No No -Circular Undermining No No -Exudate Amt Medium Medium Medium -Exudate Type Serosanguineous Serosanguineous Serosanguineous -Wound Margin Distinct, Distinct, Thickened Outline Outline Attached Attached -Granulation Amt Medium (34-66%) Medium (34-66%) Small (1-33%) -Granulation Quality Red Red Ivan -Slough/Fibrin Yes Yes -Necrosis Amt Medium (34-66%) Medium (34-66%) Large (67-100%) -Necrotic Tissue Type Adherent Slough Adherent Slough Adherent Slough -Structure Exposed N/A -Texture (Ara-wound Skin Appearance) Assessed, Scarring Assessed, Scarring Scarring -Moisture (Ara-wound Skin Appearance) Assessed,Dry/ Dry/Scaly Assessed,Dry/ Scaly Scaly -Color (Ara-wound Skin Appearance) Assessed, Hemosiderin Assessed, Hemosiderin Staining Hemosiderin Staining Staining -Temperature (Ara-wound Skin No Abnormality No Abnormality No Abnormality Appearance) (Pt Warm) (Pt Warm) (Pt Warm) -Tenderness on Palpation (Ara-wound No No Skin Appearance) -Ulcer Cleansing Rinsed/ Soap and Water Rinsed/ Irrigated with Irrigated with Saline Saline -Foul Odor after Cleansing No No No -Anesthetic Used 5% Lidocaine 5% Lidocaine 5% Lidocaine Gel Gel Gel Right Calf (cm) 36.7 37.2 37 Right Ankle (cm) 21.7 22 22 Left Calf (cm) 35.7 35.5 35.2 Left Ankle (cm) 22.8 23.1 23.2 WC - Nurse 2 - General Ulcer CM Notes Start: 11/30/22 08:50 Freq: Status: Active Protocol: Activity Type Activity Date Activity User E-sign Co-sign Detail Recorded Client Recorded Date Recorded By Document 11/30/22 09:24 MW [id number] 11/30/22 09:36 MW Document 12/14/22 09:21 MW [id number] 12/14/22 09:28 MW Document 12/21/22 08:20 MW [id number] 12/21/22 08:31 MW 11/30/22 12/14/22 12/21/22 09:24 09:21 08:20 Wound Center Nurse 2 #15 R Med Ankle -Time 09:25 09:21 08:20 -Correct Patient Yes Yes Yes -Correct Side, Site, Position Yes Yes Yes -Correct Procedure Yes Yes Yes -Procedure Performed Yes No No -Type of Procedure Debridement -Clinical Debridement Subcutaneous -Tissue Removed Subcutaneous -Post Debridement (cm) - Length 0.9 0.1 0 -Post Debridement (cm) - Width 0.2 0.1 0 -Post Debridement (cm) - Depth 0.1 0.1 0 -Total Square (Post) (cm) 0.18 0.01 0 -Area of Debridement (cm) - Length 0.9 -Area of Debridement (cm) - Width 0.2 -Total Square (Area) (cm) 0.18 -Tunneling No No No -Undermining/Tunneling No No No -Circular Undermining No No No -Wound/Ulcer Outcome Not Healed Not Healed Healed- Epithelialized -Ulcer Cleansing Rinsed/ Not Cleansed Irrigated with Saline -Foul Odor after Cleansing No -Bioengineered Tissue No -Bleeding Controlled with Pressure -Treatment Response Procedure Tolerated Well -Offloading No -Debridement - Subq, 1st 20sq cm Yes #11 Medial Inferior LLE -Time 09: 09:22 08:21 -Correct Patient Yes Yes Yes -Correct Side, Site, Position Yes Yes Yes -Correct Procedure Yes Yes Yes -Procedure Performed Yes Yes Yes -Type of Procedure Debridement Debridement Debridement -Clinical Debridement Subcutaneous Subcutaneous Subcutaneous -Tissue Removed Subcutaneous Subcutaneous Subcutaneous -Post Debridement (cm) - Length 1.8 1.5 1.4 -Post Debridement (cm) - Width 0.4 0.3 0.4 -Post Debridement (cm) - Depth 0.1 0.1 0.1 -Total Square (Post) (cm) 0.72 0.45 0.56 -Area of Debridement (cm) - Length 1.8 1.5 1.4 -Area of Debridement (cm) - Width 0.4 0.3 0.4 -Total Square (Area) (cm) 0.72 0.45 0.56 -Tunneling No No No -Undermining/Tunneling No No No -Circular Undermining No No No -Wound/Ulcer Outcome Not Healed Not Healed Not Healed -Ulcer Cleansing Rinsed/ Rinsed/ Rinsed/ Irrigated with Irrigated with Irrigated with Saline Saline Saline -Foul Odor after Cleansing No No No -Bioengineered Tissue No No No -Bleeding Controlled with Pressure Pressure Pressure -Treatment Response Procedure Tolerated Well -Offloading No No No -Debridement - Subq, 1st 20sq cm No Yes Yes #10 Left Medial Ankle -Time : 09:22 08:22 -Correct Patient Yes Yes Yes -Correct Side, Site, Position Yes Yes Yes -Correct Procedure Yes Yes Yes -Procedure Performed Yes Yes Yes -Type of Procedure Debridement Debridement Debridement -Clinical Debridement Subcutaneous Subcutaneous Subcutaneous -Tissue Removed Subcutaneous Subcutaneous Subcutaneous -Post Debridement (cm) - Length 3.5 3.4 3.5 -Post Debridement (cm) - Width 3.0 3.0 3.0 -Post Debridement (cm) - Depth 0.2 0.2 0.2 -Total Square (Post) (cm) 10.50 10.20 10.50 -Area of Debridement (cm) - Length 3.5 3.4 3.5 -Area of Debridement (cm) - Width 3.0 3.0 3.0 -Total Square (Area) (cm) 10.50 10.20 10.50 -Tunneling No No No -Undermining/Tunneling No No No -Circular Undermining No No No -Wound/Ulcer Outcome Not Healed Not Healed Not Healed -Ulcer Cleansing Rinsed/ Rinsed/ Rinsed/ Irrigated with Irrigated with Irrigated with Saline Saline Saline -Foul Odor after Cleansing No No No -Bioengineered Tissue No No No -Bleeding Controlled with Pressure Pressure Pressure -Treatment Response Procedure Procedure Procedure Tolerated Well Tolerated Well Tolerated Well -Offloading No No No -Debridement - Subq, 1st 20sq cm No No No Pain Scale: 0-10 Numeric Is Patient Pain Free? Yes Yes Yes - Nurse 3 - General Ulcer D/C NN Start: 11/30/22 08:50 Freq: Status: Active Protocol: Activity Type Activity Date Activity User E-sign Co-sign Detail Recorded Client Recorded Date Recorded By Document 11/30/22 09:45 BMF [id number] 11/30/22 09:46 BMF Document 12/14/22 09:36 DL [id number] 12/14/22 09:38 DL 11/30/22 12/14/22 09:45 09:36 Wound Care Center Nurse 3 #15 R Med Ankle -Ulcer Cleansing Rinsed/ Rinsed/ Irrigated with Irrigated with Saline Saline -Foul Odor after Cleansing No No -Primary Dressing Applied NonAdherent NonAdherent Contact Layer Contact Layer -Other Dressing abd -Primary Dressing Covered/Secured with Secured with Dry Gauze, Tape Secured with Tape #11 Medial Inferior LLE -Ulcer Cleansing Rinsed/ Rinsed/ Irrigated with Irrigated with Saline Saline -Foul Odor after Cleansing No No -Primary Dressing Applied Aquacel AG 4x4 -Other Dressing bactroban, bactroban/ kerramax kerramax/ aquacel ag -Primary Dressing Covered/Secured with Dry Gauze -Aquacel AG 4x4 1 #10 Left Medial Ankle -Ulcer Cleansing Rinsed/ Rinsed/ Irrigated with Irrigated with Saline Saline -Foul Odor after Cleansing No No -Primary Dressing Applied Aquacel AG 4x4 -Other Dressing bactroban, bactroban, kerramax aqaucel ag, kerramax -Primary Dressing Covered/Secured with Secured with Dry Gauze Tape -Aquacel AG 4x4 0 BLE -Stockings Yes -Other PT APPLIED OWN COMPRESSION STOCKINGS Treatment Response Procedure Procedure Tolerated Well Tolerated Well Pain Scale: 0-10 Numeric Is Patient Pain Free? Yes Yes - Visit Discharge Discharge Condition Stable Stable Ambulatory Status Ambulatory Ambulatory Transportation Private Auto Private Auto Additional Wound Wound debrided: Left lower extremity inferior Type of Debridement: Excisional debridement Anesthesia Used: 5% Lidocaine Gel Depth: Down to and including healthy tissue and in the subcutaneous layer Percentage of wound debrided: 100 Instrument Used: 5mm curette Tissue Removed: Slough and devitalized tissue Severity: Fat Layer Exposed Amount of bleeding with debridement: Mild Bleeding Controlled with: Pressure Patient tolerated procedure: Patient tolerated procedure well Assessment/Plan Assessment/Plan (1) Ulcer of left lower extremity with fat layer exposed: CODE(S): L97.922 - Non-pressure chronic ulcer of unspecified part of left lower leg with fat layer exposed (2) Ulcer of right lower extremity with fat layer exposed: CODE(S): L97.912 - Non-pressure chronic ulcer of unspecified part of right lower leg with fat layer exposed (3) PVD (peripheral vascular disease): CODE(S): I73.9 - Peripheral vascular disease, unspecified (4) Chronic venous insufficiency: CODE(S): I87.2 - Venous insufficiency (chronic) (peripheral) (5) Delayed wound healing: CODE(S): T14.8XXD - Other injury of unspecified body region, subsequent encounter PLAN: Plan Debridement done as documented above, procedure was well-tolerated. Stable. Continue Aquacel and care max to all left lower extremity ulcers. Change daily to twice daily depending on drainage. Adaptic and gauze to right lower extremity ulcer. Continue mupirocin ointment as well. Continue use of compression stockings, leg elevation and exercise. Increased protein intake, protein supplements, zinc and vitamin C also recommended. Continue multivitamins. His questions were answered and he was advised to call with any further questions or concerns. Follow-up in 1 week. This note was generated with [employer] dictation software. It may contain incorrect words, spelling, and punctuation that were not noted in checking the note before signing.
== END 2022-12-26 23:59 | disposition home or self-care (01) ==
LOC: WC 08:00
PROVIDERS: PCP Family Medicine; Visit Provider Internal Medicine
DX: I87.313 Chronic venous hypertension (idiopathic) with ulcer of bilateral lower extremity (principal); L97.322 Non-pressure chronic ulcer of left ankle with fat layer exposed; L97.222 Non-pressure chronic ulcer of left calf with fat layer exposed
CPT/HCPCS: 11042

== ENCOUNTER 2023-01-18 08:00 | Outpatient (RCR) | payer BC, SELFPAY ==
[2022-12-27 00:19] VITALS: BP 155/77; PULSE 95; RESP 16; TEMP 36.6; O2SAT 99; BMI 31.4
[2023-01-04 08:01] VITALS: BP 143/81; PULSE 92; RESP 16; TEMP 36.3; BMI 31.4
--- NOTE | 2023-01-04 08:32 | PCM.WC.PN ---
History of Present Illness Date of Service: 01/04/23 Chief Complaint: ulcers to the left lower leg History of Wound: This is a 54-year-old male presents to wound healing center with a long-standing history of chronic venous insufficiency, chronic venous hypertension, lower extremity edema, lower extremity pain, and chronic left lower extremity ulcer. 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 He is currently wearing graduated compression stockings which are documented to be 20-30 mmHg compression and these are thigh high. He reports great compliance with use. He is also had previous arterial work-up with no intervention recommended by letter, his vascular surgeon. He denies taking nutritional supplementation. He saw dermatology and had a biopsy of the ulcer site. He also was previously treated by infectious disease for various contaminations and infections. He is not antibiotics at this time nor does he have any redness or odor coming from the wound. He denies fever, chill, nausea, vomiting, loss of appetite. 05/18/22: Mr. Jeronimo presents with a new right lower extremity ulceration. He states that this has been present for months and he has been trying to manage it at home without any significant improvement. Opened up months ago, no known precipitating factor. Has been applying wound dressings without any significant improvement. He reports increased drainage. Denies significant pain. No chills, fever or feeling of unwell. Progress of Wound: No acute concerns at this time. Doing dressing changes as recommended. Left inferior with minimal ulceration left Objective Data Objective Data Vital Signs: Vital Signs Temp Pulse Resp BP Pulse Ox O2 Del Method 97.3 F L 92 16 143/81 H 99 Room Air 01/04/23 08:01 01/04/23 08:01 01/04/23 08:01 01/04/23 08:01 12/27/22 00:19 01/04/23 08:01 Oxygen Delivery Method Room Air Body Mass Index (BMI) 31.4 Charges/Coding Procedures Integumentary 111xxx-113xx: 31302 Lakeisha subq tissue 20 sq cm/< Physical Exam Const alert, oriented x3 and no apparent distress General Appearance: cooperative and comfortable Orientation / Consciousness: awake HEENT normocephalic Head and Scalp: normal to inspection, normocephalic and atraumatic Face and Sinus: normal facial exam Eyes EOMs intact bilaterally Neck full ROM and supple General: normal visual inspection Resp normal respiratory effort Effort and Inspection: able to speak in complete sentences GI non-tender Extremity normal to inspection General Extremity: edema Skin Wounds: wounds noted Neuro oriented x3 and CN's II-XII intact bilaterally Psych mental status grossly normal Appearance: grossly normal Debridement Note Debridement Note Wound debrided: Left medial ankle Type of Debridement: Excisional debridement Anesthesia Used: 5% Lidocaine Gel Depth: Down to and including healthy tissue and in the subcutaneous layer Percentage of wound debrided: 100 Instrument Used: 5mm curette Tissue Removed: Slough and devitalized tissue Severity: Fat Layer Exposed Amount of bleeding with debridement: Mild Bleeding Controlled with: Pressure Patient tolerated procedure: Patient tolerated procedure well Post-Debridement Measurements and Additional Note: Post-Debridement Measurements/Treatment - Nurse 1 - General Ulcer Assessment Start: 01/04/23 08:01 Freq: Status: Active Protocol: SHANTA Activity Type Activity Date Activity User E-sign Co-sign Detail Recorded Client Recorded Date Recorded By Document 01/04/23 08:01 [facility] [id number] 01/04/23 08:07 [facility] 01/04/23 08:01 - Today's Visit Information Type of service Follow-up Visit (Physician/HOG DROPPER ) Arrival Mode Ambulatory Transfer Assistance None Patient Identification Verified (Name & Yes ) Patient Requires Transmission-Based No Precautions Height and Weight Body Mass Index (BMI) 31.4 BMI Classification Obese Vital Signs Temperature (97.8 F-99.1 F) 97.3 F L Temperature Source Temporal Pulse Rate (60-100) 92 Pulse Location Monitor Respiratory Rate (12-18) 16 Respiratory rate source Observation Oxygen Delivery Method Room Air Blood Pressure (90/60-120/80) 143/81 H Blood Pressure Mean (mm Hg) 101 Source Monitor Position Sitting Blood Pressure Location Right Arm History Since Last Visit- (Skip if this is Patient's initial visit) Have you changed medications since your No last visit? Any new allergies or adverse reactions No Had a fall/change in ADL's that may No increase risk of falls Signs or symptoms of abuse and/or No neglect since last visit Have you been in the hospital since your No last visit? Has dressing in place as prescribed Yes Has compression in place as prescribed Yes Has offloadiing in place as prescribed N/A Experienced any changes in pain level or No management Left Footwear Regular Shoe Right Footwear Regular Shoe Pain Scale: 0-10 Numeric Is Patient Pain Free? Yes WC - Nurse 1 - General Ulcer Measurement Start: 01/04/23 08:01 Freq: Status: Active Protocol: Activity Type Activity Date Activity User E-sign Co-sign Detail Recorded Client Recorded Date Recorded By Document 01/04/23 08:01 [facility] [id number] 01/04/23 08:07 [facility] 01/04/23 08:01 Wound Center Nurse 1 #11 Medial Inferior LLE -Combined with other wound No -Current Size (cm) - Length 0.2 -Current Size (cm) - Width 0.2 -Current Size (cm) - Depth 0.1 -Total Square Cm 0.04 -Date of Last Picture (Recall this 01/04/23 field) -Photo Taken Yes -Epithelialization None Present -Tunneling No -Undermining/Tunneling No -Circular Undermining No -Exudate Amt Small -Exudate Type Serous -Wound Margin Distinct, Outline Attached -Granulation Amt Small (1-33%) -Granulation Quality Red -Slough/Fibrin Yes -Necrosis Amt Large (67-100%) -Necrotic Tissue Type Adherent Slough -Texture (Ara-wound Skin Appearance) Assessed, Scarring -Moisture (Ara-wound Skin Appearance) Assessed,Dry/ Scaly -Color (Ara-wound Skin Appearance) Assessed, Hemosiderin Staining -Temperature (Ara-wound Skin No Abnormality Appearance) (Pt Warm) -Tenderness on Palpation (Ara-wound No Skin Appearance) -Ulcer Cleansing Soap and Water -Foul Odor after Cleansing No -Anesthetic Used 5% Lidocaine Gel #10 Left Medial Ankle -Combined with other wound No -Current Size (cm) - Length 4.5 -Current Size (cm) - Width 3.3 -Current Size (cm) - Depth 0.2 -Total Square Cm 14.85 -Date of Last Picture (Recall this 01/04/23 field) -Photo Taken Yes -Epithelialization None Present -Tunneling No -Undermining/Tunneling No -Circular Undermining No -Exudate Amt Medium -Exudate Type Serous -Wound Margin Distinct, Outline Attached -Granulation Amt None Present (0 %) -Slough/Fibrin Yes -Necrosis Amt Large (67-100%) -Necrotic Tissue Type Adherent Slough -Texture (Ara-wound Skin Appearance) Assessed, Scarring -Moisture (Ara-wound Skin Appearance) Assessed -Color (Ara-wound Skin Appearance) Assessed, Hemosiderin Staining -Temperature (Ara-wound Skin No Abnormality Appearance) (Pt Warm) -Tenderness on Palpation (Ara-wound No Skin Appearance) -Ulcer Cleansing Soap and Water -Foul Odor after Cleansing Yes, Due to Product Use -Anesthetic Used 5% Lidocaine Gel Right Calf (cm) 37 Right Ankle (cm) 22 Left Calf (cm) 36 Left Ankle (cm) 25.5 WC - Nurse 2 - General Ulcer CM Notes Start: 01/04/23 08:01 Freq: Status: Active Protocol: Activity Type Activity Date Activity User E-sign Co-sign Detail Recorded Client Recorded Date Recorded By Document 01/04/23 08:22 [facility] [id number] 01/04/23 08:28 [facility] 01/04/23 08:22 Wound Center Nurse 2 #11 Medial Inferior LLE -Time 08:22 -Correct Patient Yes -Correct Side, Site, Position Yes -Correct Procedure Yes -Procedure Performed Yes -Type of Procedure Debridement -Clinical Debridement Subcutaneous -Tissue Removed Subcutaneous -Post Debridement (cm) - Length 0.1 -Post Debridement (cm) - Width 0.1 -Post Debridement (cm) - Depth 0.1 -Total Square (Post) (cm) 0.01 -Area of Debridement (cm) - Length 0.1 -Area of Debridement (cm) - Width 0.1 -Total Square (Area) (cm) 0.01 -Tunneling No -Undermining/Tunneling No -Circular Undermining No -Wound/Ulcer Outcome Not Healed -Ulcer Cleansing Rinsed/ Irrigated with Saline -Foul Odor after Cleansing No -Bioengineered Tissue No -Bleeding Controlled with Pressure -Treatment Response Procedure Tolerated Well -Offloading No -Debridement - Subq, 1st 20sq cm No #10 Left Medial Ankle -Time 08:23 -Correct Patient Yes -Correct Side, Site, Position Yes -Correct Procedure Yes -Procedure Performed Yes -Type of Procedure Debridement -Clinical Debridement Subcutaneous -Tissue Removed Subcutaneous -Post Debridement (cm) - Length 3.0 -Post Debridement (cm) - Width 3.0 -Post Debridement (cm) - Depth 0.1 -Total Square (Post) (cm) 9.00 -Area of Debridement (cm) - Length 3.0 -Area of Debridement (cm) - Width 3.0 -Total Square (Area) (cm) 9.00 -Undermining/Tunneling No -Circular Undermining No -Wound/Ulcer Outcome Not Healed -Ulcer Cleansing Rinsed/ Irrigated with Saline -Foul Odor after Cleansing No -Bioengineered Tissue No -Bleeding Controlled with Pressure -Offloading No -Debridement - Subq, 1st 20sq cm Yes Pain Scale: 0-10 Numeric Is Patient Pain Free? Yes Additional Wound Wound debrided: Left lower extremity inferior Type of Debridement: Excisional debridement Anesthesia Used: 5% Lidocaine Gel Depth: Down to and including healthy tissue and in the subcutaneous layer Percentage of wound debrided: 100 Instrument Used: 5mm curette Tissue Removed: Slough and devitalized tissue Severity: Fat Layer Exposed Amount of bleeding with debridement: Mild Bleeding Controlled with: Pressure Patient tolerated procedure: Patient tolerated procedure well Assessment/Plan Assessment/Plan (1) Ulcer of left lower extremity with fat layer exposed: CODE(S): L97.922 - Non-pressure chronic ulcer of unspecified part of left lower leg with fat layer exposed (2) Ulcer of right lower extremity with fat layer exposed: CODE(S): L97.912 - Non-pressure chronic ulcer of unspecified part of right lower leg with fat layer exposed (3) PVD (peripheral vascular disease): CODE(S): I73.9 - Peripheral vascular disease, unspecified (4) Chronic venous insufficiency: CODE(S): I87.2 - Venous insufficiency (chronic) (peripheral) (5) Delayed wound healing: CODE(S): T14.8XXD - Other injury of unspecified body region, subsequent encounter PLAN: Plan Debridement done as documented above, procedure was well-tolerated. Stable. Continue Aquacel and care max to all left lower extremity ulcers. Change daily to twice daily depending on drainage. Moisturize both lower extremities using Vaseline. Copious amount of Vaseline to the right lower extremity, cover with ABD. Continue mupirocin ointment as well. Continue use of compression stockings, leg elevation and exercise. Increased protein intake, protein supplements, zinc and vitamin C also recommended. Continue multivitamins. His questions were answered and he was advised to call with any further questions or concerns. Follow-up in 2 weeks. This note was generated with [employer] dictation software. It may contain incorrect words, spelling, and punctuation that were not noted in checking the note before signing.
[2023-01-18 07:48] VITALS: BP 141/71; PULSE 87; RESP 16; TEMP 36.2; BMI 31.4
--- NOTE | 2023-01-18 09:18 | PN.PCM_ITS ---
History of Present Illness Date of Service: 01/18/23 Chief Complaint: ulcers to the left lower leg History of Wound: This is a 54-year-old male presents to wound healing center with a long-standing history of chronic venous insufficiency, chronic venous hypertension, lower extremity edema, lower extremity pain, and chronic left lower extremity ulcer. The patient has previously undergone endovenous laser ablation of the left and right great saphenous vein, the small saphenous vein, the left accessory saphenous vein, and an incompetent left calf tool trouble shooter vein located 15 cm proximal to the left medial malleolus. He is currently wearing graduated compression stockings which are documented to be 20-30 mmHg compression and these are thigh high. He reports great compliance with use. He is also had previous arterial work-up with no intervention recommended by letter, his vascular surgeon. He denies taking nutritional supplementation. He saw dermatology and had a biopsy of the ulcer site. He also was previously treated by infectious disease for various contaminations and infections. He is not antibiotics at this time nor does he have any redness or odor coming from the wound. He denies fever, chill, nausea, vomiting, loss of appetite. 05/18/22: Mr. Jeronimo presents with a new right lower extremity ulceration. He states that this has been present for months and he has been trying to manage it at home without any significant improvement. Opened up months ago, no known precipitating factor. Has been applying wound dressings without any significant improvement. He reports increased drainage. Denies significant pain. No chills, fever or feeling of unwell. Progress of Wound: No acute concerns at this time. Doing dressing changes as recommended. Left inferior ulcer healed. Objective Data Objective Data Vital Signs: Vital Signs Temp Pulse Resp BP Pulse Ox O2 Del Method 97.2 F L 87 16 141/71 H 99 Room Air 01/18/23 07:48 01/18/23 07:48 01/18/23 07:48 01/18/23 07:48 12/27/22 00:19 01/18/23 07:48 Oxygen Delivery Method Room Air Body Mass Index (BMI) 31.4 Charges/Coding Procedures Integumentary 111xxx-113xx: [id number] Lakeisha subq tissue 20 sq cm/< Physical Exam Const alert, oriented x3 and no apparent distress General Appearance: cooperative and comfortable Orientation / Consciousness: awake HEENT normocephalic Head and Scalp: normal to inspection, normocephalic and atraumatic Face and Sinus: normal facial exam Eyes EOMs intact bilaterally Neck full ROM and supple General: normal visual inspection Resp normal respiratory effort Effort and Inspection: able to speak in complete sentences GI non-tender Extremity normal to inspection General Extremity: edema Skin Wounds: wounds noted Neuro oriented x3 and CN's II-XII intact bilaterally Psych mental status grossly normal Appearance: grossly normal Debridement Note Debridement Note Wound debrided: Left medial ankle Type of Debridement: Excisional debridement Anesthesia Used: 5% Lidocaine Gel Depth: Down to and including healthy tissue and in the subcutaneous layer Percentage of wound debrided: 100 Instrument Used: 5mm curette Tissue Removed: Slough and devitalized tissue Severity: Fat Layer Exposed Amount of bleeding with debridement: Mild Bleeding Controlled with: Pressure Patient tolerated procedure: Patient tolerated procedure well Post-Debridement Measurements and Additional Note: Post-Debridement Measurements/Treatment - Nurse 1 - General Ulcer Assessment Start: 01/04/23 08:01 Freq: Status: Active Protocol: SHANTA Activity Type Activity Date Activity User E-sign Co-sign Detail Recorded Client Recorded Date Recorded By Document 01/04/23 08:01 [facility] [id number] 01/04/23 08:07 [facility] Document 01/18/23 07:48 [facility] [id number] 01/18/23 07:55 [facility] 01/04/23 01/18/23 08:01 07:48 - Today's Visit Information Type of service Follow-up Visit Follow-up Visit (Physician/MICROFILM MACHINE OPERATOR (Physician/MICROFILM MACHINE OPERATOR ) ) Arrival Mode Ambulatory Ambulatory Transfer Assistance None None Patient Identification Verified (Name & Yes Yes ) Patient Requires Transmission-Based No No Precautions Height and Weight Body Mass Index (BMI) 31.4 31.4 BMI Classification Obese Obese Vital Signs Temperature (97.8 F-99.1 F) 97.3 F L 97.2 F L Temperature Source Temporal Temporal Pulse Rate (60-100) 92 87 Pulse Location Monitor Monitor Respiratory Rate (12-18) 16 16 Respiratory rate source Observation Observation Oxygen Delivery Method Room Air Room Air Blood Pressure (90/60-120/80) 143/81 H 141/71 H Blood Pressure Mean (mm Hg) 101 94 Source Monitor Monitor Position Sitting Sitting Blood Pressure Location Right Arm Right Arm History Since Last Visit- (Skip if this is Patient's initial visit) Have you changed medications since your No No last visit? Any new allergies or adverse reactions No No Had a fall/change in ADL's that may No No increase risk of falls Signs or symptoms of abuse and/or No No neglect since last visit Have you been in the hospital since your No No last visit? Has dressing in place as prescribed Yes Yes Has compression in place as prescribed Yes Yes Has offloadiing in place as prescribed N/A N/A Experienced any changes in pain level or No No management Left Footwear Regular Shoe Regular Shoe Right Footwear Regular Shoe Regular Shoe Pain Scale: 0-10 Numeric Is Patient Pain Free? Yes Yes WC - Nurse 1 - General Ulcer Measurement Start: 01/04/23 08:01 Freq: Status: Active Protocol: Activity Type Activity Date Activity User E-sign Co-sign Detail Recorded Client Recorded Date Recorded By Document 01/04/23 08:01 [facility] [id number] 01/04/23 08:07 [facility] Document 01/18/23 07:48 [facility] [id number] 01/18/23 07:55 [facility] 01/04/23 01/18/23 08:01 07:48 Wound Center Nurse 1 #11 Medial Inferior LLE -Combined with other wound No -Current Size (cm) - Length 0.2 0.1 -Current Size (cm) - Width 0.2 0.1 -Current Size (cm) - Depth 0.1 0.1 -Total Square Cm 0.04 0.01 -Date of Last Picture (Recall this 01/04/23 field) -Photo Taken Yes Yes -Epithelialization None Present -Tunneling No -Undermining/Tunneling No -Circular Undermining No -Exudate Amt Small None Present -Exudate Type Serous -Wound Margin Distinct, Flat & Intact Outline Attached -Granulation Amt Small (1-33%) Large (67-100%) -Granulation Quality Red Pale,[place] -Slough/Fibrin Yes -Necrosis Amt Large (67-100%) None Present (0 %) -Necrotic Tissue Type Adherent Slough -Structure Exposed N/A -Texture (Ara-wound Skin Appearance) Assessed, Scarring Scarring -Moisture (Ara-wound Skin Appearance) Assessed,Dry/ Dry/Scaly Scaly -Color (Ara-wound Skin Appearance) Assessed, Hemosiderin Hemosiderin Staining Staining -Temperature (Ara-wound Skin No Abnormality No Abnormality Appearance) (Pt Warm) (Pt Warm) -Tenderness on Palpation (Ara-wound No No Skin Appearance) -Ulcer Cleansing Soap and Water Soap and Water -Foul Odor after Cleansing No No -Anesthetic Used 5% Lidocaine 5% Lidocaine Gel Gel #10 Left Medial Ankle -Combined with other wound No -Current Size (cm) - Length 4.5 4.2 -Current Size (cm) - Width 3.3 2.9 -Current Size (cm) - Depth 0.2 0.2 -Total Square Cm 14.85 12.18 -Date of Last Picture (Recall this 01/04/23 field) -Photo Taken Yes Yes -Epithelialization None Present -Tunneling No -Undermining/Tunneling No -Circular Undermining No -Exudate Amt Medium Medium -Exudate Type Serous Serosanguineous -Wound Margin Distinct, Thickened Outline Attached -Granulation Amt None Present (0 Medium (34-66%) %) -Granulation Quality Red -Slough/Fibrin Yes -Necrosis Amt Large (67-100%) Medium (34-66%) -Necrotic Tissue Type Adherent Slough Adherent Slough -Structure Exposed N/A -Texture (Ara-wound Skin Appearance) Assessed, Scarring Scarring -Moisture (Ara-wound Skin Appearance) Assessed Dry/Scaly -Color (Ara-wound Skin Appearance) Assessed, Hemosiderin Hemosiderin Staining Staining -Temperature (Ara-wound Skin No Abnormality No Abnormality Appearance) (Pt Warm) (Pt Warm) -Tenderness on Palpation (Ara-wound No No Skin Appearance) -Ulcer Cleansing Soap and Water Not Cleansed -Foul Odor after Cleansing Yes, Due to Product Use -Anesthetic Used 5% Lidocaine 5% Lidocaine Gel Gel,Cetacaine Right Calf (cm) 37 Right Ankle (cm) 22 Left Calf (cm) 36 37 Left Ankle (cm) 25.5 23.2 WC - Nurse 2 - General Ulcer CM Notes Start: 01/04/23 08:01 Freq: Status: Active Protocol: Activity Type Activity Date Activity User E-sign Co-sign Detail Recorded Client Recorded Date Recorded By Document 01/04/23 08:22 [facility] [id number] 01/04/23 08:28 JF Document 01/18/23 08:25 MW [id number] 01/18/23 08:33 MW 01/04/23 01/18/23 08:22 08:25 Wound Center Nurse 2 #11 Medial Inferior LLE -Time 08: 08:25 -Correct Patient Yes Yes -Correct Side, Site, Position Yes Yes -Correct Procedure Yes Yes -Procedure Performed Yes No -Type of Procedure Debridement -Clinical Debridement Subcutaneous -Tissue Removed Subcutaneous -Post Debridement (cm) - Length 0.1 0 -Post Debridement (cm) - Width 0.1 0 -Post Debridement (cm) - Depth 0.1 0 -Total Square (Post) (cm) 0.01 0 -Area of Debridement (cm) - Length 0.1 -Area of Debridement (cm) - Width 0.1 -Total Square (Area) (cm) 0.01 -Tunneling No No -Undermining/Tunneling No No -Circular Undermining No No -Wound/Ulcer Outcome Not Healed Healed- Epithelialized -Ulcer Cleansing Rinsed/ Irrigated with Saline -Foul Odor after Cleansing No -Bioengineered Tissue No -Bleeding Controlled with Pressure -Treatment Response Procedure Tolerated Well -Offloading No -Debridement - Subq, 1st 20sq cm No #10 Left Medial Ankle -Time 08: 08:25 -Correct Patient Yes Yes -Correct Side, Site, Position Yes Yes -Correct Procedure Yes Yes -Procedure Performed Yes Yes -Type of Procedure Debridement Debridement -Clinical Debridement Subcutaneous Subcutaneous -Tissue Removed Subcutaneous Subcutaneous -Post Debridement (cm) - Length 3.0 4.0 -Post Debridement (cm) - Width 3.0 2.7 -Post Debridement (cm) - Depth 0.1 0.2 -Total Square (Post) (cm) 9.00 10.80 -Area of Debridement (cm) - Length 3.0 4.0 -Area of Debridement (cm) - Width 3.0 2.7 -Total Square (Area) (cm) 9.00 10.80 -Tunneling No -Undermining/Tunneling No No -Circular Undermining No No -Wound/Ulcer Outcome Not Healed Not Healed -Ulcer Cleansing Rinsed/ Rinsed/ Irrigated with Irrigated with Saline Saline -Foul Odor after Cleansing No No -Bioengineered Tissue No No -Bleeding Controlled with Pressure Pressure -Treatment Response Procedure Tolerated Well -Offloading No No -Debridement - Subq, 1st 20sq cm Yes No Pain Scale: 0-10 Numeric Is Patient Pain Free? Yes Yes WC - Nurse 3 - General Ulcer D/C NN Start: 01/04/23 08:01 Freq: Status: Active Protocol: Activity Type Activity Date Activity User E-sign Co-sign Detail Recorded Client Recorded Date Recorded By Document 01/04/23 08:33 [facility] [id number] 01/04/23 08:34 [facility] Document 01/18/23 08:33 MW [id number] 01/18/23 08:34 MW 01/04/23 01/18/23 08:33 08:33 Wound Care Center Nurse 3 #11 Medial Inferior LLE -Other Dressing abd w/ tape. pt going home to shower -Primary Dressing Covered/Secured with Secured with Tape #10 Left Medial Ankle -Ulcer Cleansing Rinsed/ Irrigated with Saline -Foul Odor after Cleansing No -Negative Pressure Wound Therapy N/A -Other Dressing abd; pt going home to shower. -Primary Dressing Covered/Secured with Secured with Tape -Other Covering abd pad ble -Lotion applied to leg before No compression wrap -Stockings Yes -Other pt applies own compression stockings Treatment Response Procedure Procedure Tolerated Well Tolerated Well Pain Scale: 0-10 Numeric Is Patient Pain Free? Yes Yes Teaching: Wound Center Dressing Your Wound -Person Taught Patient -Teaching Method Discussion, Demonstration -Response to teaching Verbalize understanding WC - Visit Discharge Discharge Condition Stable Stable Ambulatory Status Ambulatory Ambulatory Transportation Private Auto Private Auto Accompanied by self Medication Reconcilliation completed & No provided to patient/care provider Clinical Summary of Care Provided Yes Assessment/Plan Assessment/Plan (1) Ulcer of left lower extremity with fat layer exposed: CODE(S): L97.922 - Non-pressure chronic ulcer of unspecified part of left lower leg with fat layer exposed (2) PVD (peripheral vascular disease): CODE(S): I73.9 - Peripheral vascular disease, unspecified (3) Chronic venous insufficiency: CODE(S): I87.2 - Venous insufficiency (chronic) (peripheral) (4) Delayed wound healing: CODE(S): T14.8XXD - Other injury of unspecified body region, subsequent encounter PLAN: Plan Debridement done as documented above, procedure was well-tolerated. Improving. Continue Aquacel and care max to left medial ankle ulcer. Left lower extremity ulcer is healed. Moisturize both lower extremities using Vaseline. Continue mupirocin ointment as well. Continue use of compression stockings, leg elevation and exercise. Increased protein intake, protein supplements, zinc and vitamin C also recommended. Continue multivitamins. His questions were answered and he was advised to call with any further questions or concerns. Follow-up in 2 weeks. This note was generated with [employer] dictation software. It may contain incorrect words, spelling, and punctuation that were not noted in checking the note before signing.
== END 2023-01-26 23:59 | disposition home or self-care (01) ==
LOC: WC 08:00
PROVIDERS: PCP Family Medicine; Visit Provider Internal Medicine
DX: I87.313 Chronic venous hypertension (idiopathic) with ulcer of bilateral lower extremity (principal); L97.322 Non-pressure chronic ulcer of left ankle with fat layer exposed
CPT/HCPCS: 11042

== ENCOUNTER 2023-02-15 08:00 | Outpatient (RCR) | payer OTHER, SELFPAY ==
[2023-01-27 01:31] VITALS: BP 141/71; PULSE 87; RESP 16; TEMP 36.2; O2SAT 99; BMI 31.4
[2023-02-01 07:55] VITALS: BP 161/56; PULSE 99; RESP 20; TEMP 36.4; BMI 31.4
[2023-02-15 08:01] VITALS: BP 146/83; PULSE 88; RESP 16; TEMP 36.1; BMI 31.4
--- NOTE | 2023-02-15 08:29 | PN.PCM_ITS ---
History of Present Illness Date of Service: 02/15/23 Chief Complaint: ulcers to the left lower leg History of Wound: This is a 54-year-old male presents to wound healing center with a long-standing history of chronic venous insufficiency, chronic venous hypertension, lower extremity edema, lower extremity pain, and chronic left lower extremity ulcer. The patient has previously undergone endovenous laser ablation of the left and right great saphenous vein, the small saphenous vein, the left accessory saphenous vein, and an incompetent left calf outside sales vein located 15 cm proximal to the left medial malleolus. He is currently wearing graduated compression stockings which are documented to be 20-30 mmHg compression and these are thigh high. He reports great compliance with use. He is also had previous arterial work-up with no intervention recommended by letter, his vascular surgeon. He denies taking nutritional supplementation. He saw dermatology and had a biopsy of the ulcer site. He also was previously treated by infectious disease for various contaminations and infections. He is not antibiotics at this time nor does he have any redness or odor coming from the wound. He denies fever, chill, nausea, vomiting, loss of appetite. 05/18/22: Mr. Jeronimo presents with a new right lower extremity ulceration. He states that this has been present for months and he has been trying to manage it at home without any significant improvement. Opened up months ago, no known precipitating factor. Has been applying wound dressings without any significant improvement. He reports increased drainage. Denies significant pain. No chills, fever or feeling of unwell. Progress of Wound: Now down to 1 ulcer. This is also improving. No new concerns reported at this time. Objective Data Objective Data Vital Signs: Vital Signs Temp Pulse Resp BP Pulse Ox O2 Del Method 96.9 F L 88 16 146/83 H 99 Room Air 02/15/23 08:01 02/15/23 08:01 02/15/23 08:01 02/15/23 08:01 01/27/23 01:31 02/15/23 08:01 Oxygen Delivery Method Room Air Body Mass Index (BMI) 31.4 Charges/Coding Procedures Integumentary 111xxx-113xx: 56262 Lakeisha subq tissue 20 sq cm/< Physical Exam Const alert, oriented x3 and no apparent distress General Appearance: cooperative and comfortable Orientation / Consciousness: awake HEENT normocephalic Head and Scalp: normal to inspection, normocephalic and atraumatic Face and Sinus: normal facial exam Eyes EOMs intact bilaterally Neck full ROM and supple General: normal visual inspection Resp normal respiratory effort Effort and Inspection: able to speak in complete sentences GI non-tender Extremity normal to inspection General Extremity: edema Skin Wounds: wounds noted Neuro oriented x3 and CN's II-XII intact bilaterally Psych mental status grossly normal Appearance: grossly normal Debridement Note Debridement Note Wound debrided: Left medial ankle Type of Debridement: Excisional debridement Anesthesia Used: 5% Lidocaine Gel Depth: Down to and including healthy tissue and in the subcutaneous layer Percentage of wound debrided: 100 Instrument Used: 5mm curette Tissue Removed: Slough and devitalized tissue Severity: Fat Layer Exposed Amount of bleeding with debridement: Mild Bleeding Controlled with: Pressure Patient tolerated procedure: Patient tolerated procedure well Post-Debridement Measurements and Additional Note: Post-Debridement Measurements/Treatment KIMBERLY - Nurse 1 - General Ulcer Assessment Start: 02/01/23 07:55 Freq: Status: Active Protocol: SHANTA Activity Type Activity Date Activity User E-sign Co-sign Detail Recorded Client Recorded Date Recorded By Document 02/01/23 07:55 DL [id number] 02/01/23 07:58 DL Document 02/15/23 08:01 [facility] [id number] 02/15/23 08:06 [facility] 02/01/23 02/15/23 07:55 08:01 - Today's Visit Information Type of service Follow-up Visit Follow-up Visit (Physician/COFFEE SAMPLER (Physician/COFFEE SAMPLER ) ) Arrival Mode Ambulatory Ambulatory Transfer Assistance None None Patient Identification Verified (Name & Yes Yes ) Patient Requires Transmission-Based No No Precautions Height and Weight Body Mass Index (BMI) 31.4 31.4 BMI Classification Obese Obese Vital Signs Temperature (97.8 F-99.1 F) 97.6 F L 96.9 F L Temperature Source Temporal Temporal Pulse Rate (60-100) 99 88 Pulse Location Monitor Monitor Respiratory Rate (12-18) 20 H 16 Respiratory rate source Observation Observation Oxygen Delivery Method Room Air Blood Pressure (90/60-120/80) 161/56 H 146/83 H Blood Pressure Mean (mm Hg) 91 104 Source Monitor Monitor Position Sitting Blood Pressure Location Left Arm History Since Last Visit- (Skip if this is Patient's initial visit) Have you changed medications since your No No last visit? Any new allergies or adverse reactions No No Had a fall/change in ADL's that may No No increase risk of falls Signs or symptoms of abuse and/or No No neglect since last visit Have you been in the hospital since your No No last visit? Has dressing in place as prescribed Yes Yes Has compression in place as prescribed Yes Yes Has offloadiing in place as prescribed N/A N/A Experienced any changes in pain level or No No management Left Footwear Regular Shoe Right Footwear Regular Shoe Pain Scale: 0-10 Numeric Is Patient Pain Free? Yes Yes WC - Nurse 1 - General Ulcer Measurement Start: 02/01/23 07:55 Freq: Status: Active Protocol: Activity Type Activity Date Activity User E-sign Co-sign Detail Recorded Client Recorded Date Recorded By Document 02/01/23 07:55 DL [id number] 02/01/23 07:58 DL Document 02/15/23 08:01 [facility] [id number] 02/15/23 08:06 BMF 02/01/23 02/15/23 07:55 08:01 Wound Center Nurse 1 #10 Left Medial Ankle -Combined with other wound No -Current Size (cm) - Length 4.2 3.9 -Current Size (cm) - Width 2.9 2.3 -Current Size (cm) - Depth 0.2 0.2 -Total Square Cm 12.18 8.97 -Date of Last Picture (Recall this 02/15/23 field) -Photo Taken No Yes -Epithelialization Small 1-33% -Tunneling No -Undermining/Tunneling No -Circular Undermining No -Exudate Amt Medium Medium -Exudate Type Serosanguineous Serosanguineous -Wound Margin Distinct, Distinct, Outline Outline Attached Attached -Granulation Amt Medium (34-66%) Medium (34-66%) -Granulation Quality Red Red -Slough/Fibrin Yes -Necrosis Amt Medium (34-66%) Medium (34-66%) -Necrotic Tissue Type Adherent Slough Adherent Slough -Structure Exposed N/A -Texture (Ara-wound Skin Appearance) Scarring Assessed, Scarring -Moisture (Ara-wound Skin Appearance) Dry/Scaly Assessed,Dry/ Scaly -Color (Ara-wound Skin Appearance) Hemosiderin Assessed Staining -Temperature (Ara-wound Skin No Abnormality No Abnormality Appearance) (Pt Warm) (Pt Warm) -Tenderness on Palpation (Ara-wound No No Skin Appearance) -Ulcer Cleansing Soap and Water Rinsed/ Irrigated with Saline -Foul Odor after Cleansing No No -Anesthetic Used 4% Lidocaine 5% Lidocaine Solution Gel Left Calf (cm) 36.6 36.8 Left Ankle (cm) 22.9 23.4 WC - Nurse 2 - General Ulcer CM Notes Start: 02/01/23 07:55 Freq: Status: Active Protocol: Activity Type Activity Date Activity User E-sign Co-sign Detail Recorded Client Recorded Date Recorded By Document 02/15/23 08:24 MW [id number] 02/15/23 08:26 MW 02/15/23 08:24 Wound Center Nurse 2 #10 Left Medial Ankle -Time 08:24 -Correct Patient Yes -Correct Side, Site, Position Yes -Correct Procedure Yes -Procedure Performed Yes -Type of Procedure Debridement -Clinical Debridement Subcutaneous -Tissue Removed Subcutaneous -Post Debridement (cm) - Length 4.0 -Post Debridement (cm) - Width 3.1 -Post Debridement (cm) - Depth 0.2 -Total Square (Post) (cm) 12.40 -Area of Debridement (cm) - Length 4.0 -Area of Debridement (cm) - Width 3.1 -Total Square (Area) (cm) 12.40 -Tunneling No -Undermining/Tunneling No -Circular Undermining No -Wound/Ulcer Outcome Not Healed -Ulcer Cleansing Rinsed/ Irrigated with Saline -Foul Odor after Cleansing No -Bioengineered Tissue No -Bleeding Controlled with Pressure -Treatment Response Procedure Tolerated Well -Offloading No -Debridement - Subq, 1st 20sq cm Yes Pain Scale: 0-10 Numeric Is Patient Pain Free? Yes WC - Nurse 3 - General Ulcer D/C NN Start: 02/01/23 07:55 Freq: Status: Active Protocol: Activity Type Activity Date Activity User E-sign Co-sign Detail Recorded Client Recorded Date Recorded By Document 02/01/23 08:09 MW [id number] 02/01/23 08:13 MW Document 02/15/23 08:26 MW [id number] 02/15/23 08:27 MW 02/01/23 02/15/23 08:09 08:26 Wound Care Center Nurse 3 #10 Left Medial Ankle -Ulcer Cleansing Rinsed/ Rinsed/ Irrigated with Irrigated with Saline Saline -Foul Odor after Cleansing No No -Negative Pressure Wound Therapy N/A N/A -Other Dressing ABD PAD abd -Primary Dressing Covered/Secured with Secured with Tape Treatment Response Procedure Tolerated Well Pain Scale: 0-10 Numeric Is Patient Pain Free? No Yes Teaching: Wound Center Dressing Your Wound -Person Taught Patient -Teaching Method Discussion, Demonstration -Response to teaching Verbalize understanding WC - Visit Discharge Discharge Condition Stable Stable Ambulatory Status Ambulatory Ambulatory Transportation Private Auto Private Auto Accompanied by self self Medication Reconcilliation completed & No No provided to patient/care provider Clinical Summary of Care Provided Yes Yes Notes: Patient has new insurance but does not have the new insurance card or member number. He does not want to jessica pay for todays visit therefore he will call the wound center to re-schedule when he receives his insurance information. Assessment/Plan Assessment/Plan (1) Ulcer of left lower extremity with fat layer exposed: CODE(S): L97.922 - Non-pressure chronic ulcer of unspecified part of left lower leg with fat layer exposed (2) PVD (peripheral vascular disease): CODE(S): I73.9 - Peripheral vascular disease, unspecified (3) Chronic venous insufficiency: CODE(S): I87.2 - Venous insufficiency (chronic) (peripheral) (4) Delayed wound healing: CODE(S): T14.8XXD - Other injury of unspecified body region, subsequent encounter PLAN: Plan Debridement done as documented above, procedure was well-tolerated. Improving. Continue Aquacel and care max to left medial ankle ulcer. Left lower extremity ulcer stays healed. Moisturize both lower extremities using Vaseline. Continue mupirocin ointment as well. Continue use of compression stockings, leg elevation and exercise. Increased protein intake, protein supplements, zinc and vitamin C also recommended. Continue multivitamins. His questions were answered and he was advised to call with any further questions or concerns. Follow-up in 2 weeks. This note was generated with [employer] dictation software. It may contain incorrect words, spelling, and punctuation that were not noted in checking the note before signing.
== END 2023-02-25 23:59 | disposition home or self-care (01) ==
LOC: WC 08:00
PROVIDERS: PCP Family Medicine; Visit Provider Internal Medicine
DX: I73.9 Peripheral vascular disease, unspecified (principal); L97.322 Non-pressure chronic ulcer of left ankle with fat layer exposed; I87.2 Venous insufficiency (chronic) (peripheral); R60.0 Localized edema
CPT/HCPCS: 11042

== ENCOUNTER 2023-03-15 08:00 | Outpatient (RCR) | payer OTHER, SELFPAY ==
[2023-02-26 00:28] VITALS: BP 146/83; PULSE 88; RESP 16; TEMP 36.1; O2SAT 99; BMI 31.4
[2023-03-01 08:04] VITALS: BP 169/91; PULSE 86; RESP 16; TEMP 35.9; BMI 31.4
--- NOTE | 2023-03-01 09:15 | PCM.WC.PN ---
History of Present Illness Date of Service: 03/01/23 Chief Complaint: ulcers to the left lower leg History of Wound: This is a 54-year-old male presents to wound healing center with a long-standing history of chronic venous insufficiency, chronic venous hypertension, lower extremity edema, lower extremity pain, and chronic left lower extremity ulcer. 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 He is currently wearing graduated compression stockings which are documented to be 20-30 mmHg compression and these are thigh high. He reports great compliance with use. He is also had previous arterial work-up with no intervention recommended by letter, his vascular surgeon. He denies taking nutritional supplementation. He saw dermatology and had a biopsy of the ulcer site. He also was previously treated by infectious disease for various contaminations and infections. He is not antibiotics at this time nor does he have any redness or odor coming from the wound. He denies fever, chill, nausea, vomiting, loss of appetite. 05/18/22: Mr. Jeronimo presents with a new right lower extremity ulceration. He states that this has been present for months and he has been trying to manage it at home without any significant improvement. Opened up months ago, no known precipitating factor. Has been applying wound dressings without any significant improvement. He reports increased drainage. Denies significant pain. No chills, fever or feeling of unwell. Progress of Wound: Improving. No new concerns at this time. Objective Data Objective Data Vital Signs: Vital Signs Temp Pulse Resp BP Pulse Ox O2 Del Method 96.6 F L 86 16 169/91 H 99 Room Air 03/01/23 08:04 03/01/23 08:04 03/01/23 08:04 03/01/23 08:04 02/26/23 00:28 03/01/23 08:04 Oxygen Delivery Method Room Air Body Mass Index (BMI) 31.4 Charges/Coding Procedures Integumentary 111xxx-113xx: 06527 Lakeisha subq tissue 20 sq cm/< Physical Exam Const alert, oriented x3 and no apparent distress General Appearance: cooperative and comfortable Orientation / Consciousness: awake HEENT normocephalic Head and Scalp: normal to inspection, normocephalic and atraumatic Face and Sinus: normal facial exam Eyes EOMs intact bilaterally Neck full ROM and supple General: normal visual inspection Resp normal respiratory effort Effort and Inspection: able to speak in complete sentences GI non-tender Extremity normal to inspection General Extremity: edema Skin Wounds: wounds noted Neuro oriented x3 and CN's II-XII intact bilaterally Psych mental status grossly normal Appearance: grossly normal Debridement Note Debridement Note Wound debrided: Left medial ankle Type of Debridement: Excisional debridement Anesthesia Used: 5% Lidocaine Gel Depth: Down to and including healthy tissue and in the subcutaneous layer Percentage of wound debrided: 100 Instrument Used: 5mm curette Tissue Removed: Slough and devitalized tissue Severity: Fat Layer Exposed Amount of bleeding with debridement: Mild Bleeding Controlled with: Pressure Patient tolerated procedure: Patient tolerated procedure well Post-Debridement Measurements and Additional Note: Post-Debridement Measurements/Treatment - Nurse 1 - General Ulcer Assessment Start: 03/01/23 08:04 Freq: Status: Active Protocol: SHANTA Activity Type Activity Date Activity User E-sign Co-sign Detail Recorded Client Recorded Date Recorded By Document 03/01/23 08:04 [facility] [id number] 03/01/23 08:09 [facility] 03/01/23 08:04 - Today's Visit Information Type of service Follow-up Visit (Physician/PLASTICS PROCESS HAND ) Arrival Mode Ambulatory Transfer Assistance None Patient Identification Verified (Name & Yes ) Patient Requires Transmission-Based No Precautions Height and Weight Body Mass Index (BMI) 31.4 BMI Classification Obese Vital Signs Temperature (97.8 F-99.1 F) 96.6 F L Temperature Source Temporal Pulse Rate (60-100) 86 Pulse Location Monitor Respiratory Rate (12-18) 16 Respiratory rate source Observation Oxygen Delivery Method Room Air Blood Pressure (90/60-120/80) 169/91 H Blood Pressure Mean (mm Hg) 117 Source Monitor Position Sitting Blood Pressure Location Left Arm History Since Last Visit- (Skip if this is Patient's initial visit) Have you changed medications since your No last visit? Any new allergies or adverse reactions No Had a fall/change in ADL's that may No increase risk of falls Signs or symptoms of abuse and/or No neglect since last visit Have you been in the hospital since your No last visit? Has dressing in place as prescribed Yes Has compression in place as prescribed Yes Has offloadiing in place as prescribed N/A Experienced any changes in pain level or No management Left Footwear Regular Shoe Right Footwear Regular Shoe Pain Scale: 0-10 Numeric Is Patient Pain Free? Yes WC - Nurse 1 - General Ulcer Measurement Start: 03/01/23 08:04 Freq: Status: Active Protocol: Activity Type Activity Date Activity User E-sign Co-sign Detail Recorded Client Recorded Date Recorded By Document 03/01/23 08:04 BM [id number] 03/01/23 08:09 BMF 03/01/23 08:04 Wound Center Nurse 1 #10 Left Medial Ankle -Combined with other wound No -Current Size (cm) - Length 4.2 -Current Size (cm) - Width 2.9 -Current Size (cm) - Depth 0.2 -Total Square Cm 12.18 -Date of Last Picture (Recall this 03/01/23 field) -Photo Taken Yes -Epithelialization None Present -Tunneling No -Undermining/Tunneling No -Circular Undermining No -Exudate Amt Medium -Exudate Type Serosanguineous -Wound Margin Distinct, Outline Attached -Granulation Amt Small (1-33%) -Granulation Quality Red -Slough/Fibrin Yes -Necrosis Amt Large (67-100%) -Necrotic Tissue Type Adherent Slough -Texture (Ara-wound Skin Appearance) Assessed, Scarring -Moisture (Ara-wound Skin Appearance) Assessed,Dry/ Scaly -Color (Ara-wound Skin Appearance) Assessed, Hemosiderin Staining -Temperature (Ara-wound Skin No Abnormality Appearance) (Pt Warm) -Tenderness on Palpation (Ara-wound No Skin Appearance) -Ulcer Cleansing Rinsed/ Irrigated with Saline -Foul Odor after Cleansing No -Anesthetic Used 5% Lidocaine Gel Left Calf (cm) 36.5 Left Ankle (cm) 23.3 WC - Nurse 2 - General Ulcer CM Notes Start: 03/01/23 08:04 Freq: Status: Active Protocol: Activity Type Activity Date Activity User E-sign Co-sign Detail Recorded Client Recorded Date Recorded By Document 03/01/23 08:27 MW [id number] 03/01/23 08:31 MW 03/01/23 08:27 Wound Center Nurse 2 #10 Left Medial Ankle -Time 08:27 -Correct Patient Yes -Correct Side, Site, Position Yes -Correct Procedure Yes -Procedure Performed Yes -Type of Procedure Debridement -Clinical Debridement Subcutaneous -Tissue Removed Subcutaneous -Post Debridement (cm) - Length 3.5 -Post Debridement (cm) - Width 2.5 -Post Debridement (cm) - Depth 0.2 -Total Square (Post) (cm) 8.75 -Area of Debridement (cm) - Length 3.5 -Area of Debridement (cm) - Width 2.5 -Total Square (Area) (cm) 8.75 -Tunneling No -Undermining/Tunneling No -Circular Undermining No -Wound/Ulcer Outcome Not Healed -Ulcer Cleansing Rinsed/ Irrigated with Saline -Foul Odor after Cleansing No -Bioengineered Tissue No -Bleeding Controlled with Pressure -Treatment Response Procedure Tolerated Well -Offloading No -Debridement - Subq, 1st 20sq cm Yes Pain Scale: 0-10 Numeric Is Patient Pain Free? Yes WC - Nurse 3 - General Ulcer D/C NN Start: 03/01/23 08:04 Freq: Status: Active Protocol: Activity Type Activity Date Activity User E-sign Co-sign Detail Recorded Client Recorded Date Recorded By Document 03/01/23 08:31 MW [id number] 03/01/23 08:32 MW 03/01/23 08:31 Wound Care Center Nurse 3 #10 Left Medial Ankle -Ulcer Cleansing Rinsed/ Irrigated with Saline -Foul Odor after Cleansing No -Negative Pressure Wound Therapy N/A -Primary Dressing Covered/Secured with Secured with Tape -Other Covering ABD Left -Lotion applied to leg before No compression wrap -Stockings Yes Treatment Response Procedure Tolerated Well Pain Scale: 0-10 Numeric Is Patient Pain Free? Yes Teaching: Wound Center Dressing Your Wound -Person Taught Patient -Teaching Method Discussion -Response to teaching Verbalize understanding WC - Visit Discharge Discharge Condition Stable Ambulatory Status Ambulatory Transportation Private Auto Accompanied by self Medication Reconcilliation completed & No provided to patient/care provider Clinical Summary of Care Provided Yes Assessment/Plan Assessment/Plan (1) Ulcer of left lower extremity with fat layer exposed: CODE(S): L97.922 - Non-pressure chronic ulcer of unspecified part of left lower leg with fat layer exposed (2) PVD (peripheral vascular disease): CODE(S): I73.9 - Peripheral vascular disease, unspecified (3) Chronic venous insufficiency: CODE(S): I87.2 - Venous insufficiency (chronic) (peripheral) (4) Delayed wound healing: CODE(S): T14.8XXD - Other injury of unspecified body region, subsequent encounter PLAN: Plan Debridement done as documented above, procedure was well-tolerated. Improving. Continue Aquacel and care max to left medial ankle ulcer. Moisturize both lower extremities using Vaseline. Continue mupirocin ointment as well. Continue use of compression stockings, leg elevation and exercise. Increased protein intake, protein supplements, zinc and vitamin C also recommended. Continue multivitamins. His questions were answered and he was advised to call with any further questions or concerns. Follow-up in 2 weeks. This note was generated with [employer] dictation software. It may contain incorrect words, spelling, and punctuation that were not noted in checking the note before signing.
[2023-03-15 08:00] VITALS: BP 164/88; PULSE 83; TEMP 35.8; BMI 31.4
--- NOTE | 2023-03-15 08:30 | PCM.WC.PN ---
History of Present Illness Date of Service: 03/15/23 Chief Complaint: ulcers to the left lower leg History of Wound: This is a 54-year-old male presents to wound healing center with a long-standing history of chronic venous insufficiency, chronic venous hypertension, lower extremity edema, lower extremity pain, and chronic left lower extremity ulcer. 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 He is currently wearing graduated compression stockings which are documented to be 20-30 mmHg compression and these are thigh high. He reports great compliance with use. He is also had previous arterial work-up with no intervention recommended by letter, his vascular surgeon. He denies taking nutritional supplementation. He saw dermatology and had a biopsy of the ulcer site. He also was previously treated by infectious disease for various contaminations and infections. He is not antibiotics at this time nor does he have any redness or odor coming from the wound. He denies fever, chill, nausea, vomiting, loss of appetite. 05/18/22: Mr. Jeronimo presents with a new right lower extremity ulceration. He states that this has been present for months and he has been trying to manage it at home without any significant improvement. Opened up months ago, no known precipitating factor. Has been applying wound dressings without any significant improvement. He reports increased drainage. Denies significant pain. No chills, fever or feeling of unwell. Progress of Wound: Improving. No new concerns at this time. Objective Data Objective Data Vital Signs: Vital Signs Temp Pulse Resp BP Pulse Ox O2 Del Method 96.5 F L 83 16 164/88 H 99 Room Air 03/15/23 08:00 03/15/23 08:00 03/01/23 08:04 03/15/23 08:00 02/26/23 00:28 03/01/23 08:04 Oxygen Delivery Method Room Air Body Mass Index (BMI) 31.4 Charges/Coding Procedures Integumentary 111xxx-113xx: 58612 Lakeisha subq tissue 20 sq cm/< Physical Exam Const alert, oriented x3 and no apparent distress General Appearance: cooperative and comfortable Orientation / Consciousness: awake HEENT normocephalic Head and Scalp: normal to inspection, normocephalic and atraumatic Face and Sinus: normal facial exam Eyes EOMs intact bilaterally Neck full ROM and supple General: normal visual inspection Resp normal respiratory effort Effort and Inspection: able to speak in complete sentences GI non-tender Extremity normal to inspection General Extremity: edema Skin Wounds: wounds noted Neuro oriented x3 and CN's II-XII intact bilaterally Psych mental status grossly normal Appearance: grossly normal Debridement Note Debridement Note Wound debrided: Left medial ankle Type of Debridement: Excisional debridement Anesthesia Used: 5% Lidocaine Gel Depth: Down to and including healthy tissue and in the subcutaneous layer Percentage of wound debrided: 100 Instrument Used: 5mm curette Tissue Removed: Slough and devitalized tissue Severity: Fat Layer Exposed Amount of bleeding with debridement: Mild Bleeding Controlled with: Pressure Patient tolerated procedure: Patient tolerated procedure well Post-Debridement Measurements and Additional Note: Post-Debridement Measurements/Treatment - Nurse 1 - General Ulcer Assessment Start: 03/01/23 08:04 Freq: Status: Active Protocol: SHANTA Activity Type Activity Date Activity User E-sign Co-sign Detail Recorded Client Recorded Date Recorded By Document 03/01/23 08:04 [facility] [id number] 03/01/23 08:09 [facility] Document 03/15/23 08:00 [facility] [id number] 03/15/23 08:07 [facility] 03/01/23 03/15/23 08:04 08:00 - Today's Visit Information Type of service Follow-up Visit Follow-up Visit (Physician/CAPACITOR REPAIRER (Physician/CAPACITOR REPAIRER ) ) Arrival Mode Ambulatory Ambulatory Transfer Assistance None None Patient Identification Verified (Name & Yes Yes ) Patient Requires Transmission-Based No No Precautions Height and Weight Body Mass Index (BMI) 31.4 31.4 BMI Classification Obese Obese Vital Signs Temperature (97.8 F-99.1 F) 96.6 F L 96.5 F L Temperature Source Temporal Temporal Pulse Rate (60-100) 86 83 Pulse Location Monitor Monitor Respiratory Rate (12-18) 16 Respiratory rate source Observation Oxygen Delivery Method Room Air Blood Pressure (90/60-120/80) 169/91 H 164/88 H Blood Pressure Mean (mm Hg) 117 113 Source Monitor Monitor Position Sitting Sitting Blood Pressure Location Left Arm Left Arm History Since Last Visit- (Skip if this is Patient's initial visit) Have you changed medications since your No No last visit? Any new allergies or adverse reactions No No Had a fall/change in ADL's that may No No increase risk of falls Signs or symptoms of abuse and/or No No neglect since last visit Have you been in the hospital since your No No last visit? Has dressing in place as prescribed Yes Yes Has compression in place as prescribed Yes Yes Has offloadiing in place as prescribed N/A N/A Experienced any changes in pain level or No No management Left Footwear Regular Shoe Regular Shoe Right Footwear Regular Shoe Regular Shoe Pain Scale: 0-10 Numeric Is Patient Pain Free? Yes Yes WC - Nurse 1 - General Ulcer Measurement Start: 03/01/23 08:04 Freq: Status: Active Protocol: Activity Type Activity Date Activity User E-sign Co-sign Detail Recorded Client Recorded Date Recorded By Document 03/01/23 08:04 [facility] [id number] 03/01/23 08:09 BM Document 03/15/23 08:00 BM [id number] 03/15/23 08:07 BMF 03/01/23 03/15/23 08:04 08:00 Wound Center Nurse 1 #10 Left Medial Ankle -Combined with other wound No No -Current Size (cm) - Length 4.2 3.8 -Current Size (cm) - Width 2.9 2.6 -Current Size (cm) - Depth 0.2 0.2 -Total Square Cm 12.18 9.88 -Date of Last Picture (Recall this 03/01/23 03/15/23 field) -Photo Taken Yes Yes -Epithelialization None Present Small 1-33% -Tunneling No No -Undermining/Tunneling No No -Circular Undermining No No -Exudate Amt Medium Medium -Exudate Type Serosanguineous Serosanguineous -Wound Margin Distinct, Distinct, Outline Outline Attached Attached -Granulation Amt Small (1-33%) Medium (34-66%) -Granulation Quality Red Red -Slough/Fibrin Yes Yes -Necrosis Amt Large (67-100%) Medium (34-66%) -Necrotic Tissue Type Adherent Slough Adherent Slough -Texture (Ara-wound Skin Appearance) Assessed, Assessed, Scarring Scarring -Moisture (Ara-wound Skin Appearance) Assessed,Dry/ Assessed,Dry/ Scaly Scaly -Color (Ara-wound Skin Appearance) Assessed, Assessed Hemosiderin Staining -Temperature (Ara-wound Skin No Abnormality No Abnormality Appearance) (Pt Warm) (Pt Warm) -Tenderness on Palpation (Ara-wound No No Skin Appearance) -Ulcer Cleansing Rinsed/ Rinsed/ Irrigated with Irrigated with Saline Saline -Foul Odor after Cleansing No No -Anesthetic Used 5% Lidocaine 5% Lidocaine Gel Gel Left Calf (cm) 36.5 37.1 Left Ankle (cm) 23.3 22.9 WC - Nurse 2 - General Ulcer CM Notes Start: 03/01/23 08:04 Freq: Status: Active Protocol: Activity Type Activity Date Activity User E-sign Co-sign Detail Recorded Client Recorded Date Recorded By Document 03/01/23 08:27 MW [id number] 03/01/23 08:31 MW Document 03/15/23 08:24 JF [id number] 03/15/23 08:25 JF 03/01/23 03/15/23 08:27 08:24 Wound Center Nurse 2 #10 Left Medial Ankle -Time 08:27 08:24 -Correct Patient Yes Yes -Correct Side, Site, Position Yes Yes -Correct Procedure Yes Yes -Procedure Performed Yes Yes -Type of Procedure Debridement Debridement -Clinical Debridement Subcutaneous Subcutaneous -Tissue Removed Subcutaneous Subcutaneous -Post Debridement (cm) - Length 3.5 3.7 -Post Debridement (cm) - Width 2.5 2.6 -Post Debridement (cm) - Depth 0.2 0.2 -Total Square (Post) (cm) 8.75 9.62 -Area of Debridement (cm) - Length 3.5 3.7 -Area of Debridement (cm) - Width 2.5 2.6 -Total Square (Area) (cm) 8.75 9.62 -Tunneling No No -Undermining/Tunneling No No -Circular Undermining No No -Wound/Ulcer Outcome Not Healed Not Healed -Ulcer Cleansing Rinsed/ Rinsed/ Irrigated with Irrigated with Saline Saline -Foul Odor after Cleansing No No -Bioengineered Tissue No No -Bleeding Controlled with Pressure Pressure -Treatment Response Procedure Procedure Tolerated Well Tolerated Well -Offloading No No -Debridement - Subq, 1st 20sq cm Yes Yes Pain Scale: 0-10 Numeric Is Patient Pain Free? Yes Yes - Nurse 3 - General Ulcer D/C NN Start: 03/01/23 08:04 Freq: Status: Active Protocol: Activity Type Activity Date Activity User E-sign Co-sign Detail Recorded Client Recorded Date Recorded By Document 03/01/23 08:31 MW [id number] 03/01/23 08:32 MW Document 03/15/23 08:26 JF [id number] 03/15/23 08:26 JF 03/01/23 03/15/23 08:31 08:26 Wound Care Center Nurse 3 #10 Left Medial Ankle -Ulcer Cleansing Rinsed/ Rinsed/ Irrigated with Irrigated with Saline Saline -Foul Odor after Cleansing No No -Negative Pressure Wound Therapy N/A -Other Dressing ABD pad -Primary Dressing Covered/Secured with Secured with Tape -Other Covering ABD Left -Lotion applied to leg before No compression wrap -Stockings Yes Treatment Response Procedure Tolerated Well Pain Scale: 0-10 Numeric Is Patient Pain Free? Yes Yes Teaching: Wound Center Dressing Your Wound -Person Taught Patient -Teaching Method Discussion -Response to teaching Verbalize understanding WC - Visit Discharge Discharge Condition Stable Stable Ambulatory Status Ambulatory Ambulatory Transportation Private Auto Private Auto Accompanied by self Medication Reconcilliation completed & No Yes provided to patient/care provider Clinical Summary of Care Provided Yes Yes Assessment/Plan Assessment/Plan (1) Ulcer of left lower extremity with fat layer exposed: CODE(S): L97.922 - Non-pressure chronic ulcer of unspecified part of left lower leg with fat layer exposed (2) PVD (peripheral vascular disease): CODE(S): I73.9 - Peripheral vascular disease, unspecified (3) Chronic venous insufficiency: CODE(S): I87.2 - Venous insufficiency (chronic) (peripheral) (4) Delayed wound healing: CODE(S): T14.8XXD - Other injury of unspecified body region, subsequent encounter PLAN: Plan Debridement done as documented above, procedure was well-tolerated. Stable. Continue Aquacel and care max to left medial ankle ulcer. Add on adaptic due to crusting. Continue mupirocin ointment as well. Continue use of compression stockings, leg elevation and exercise. Increased protein intake, protein supplements, zinc and vitamin C also recommended. Continue multivitamins. His questions were answered and he was advised to call with any further questions or concerns. Follow-up in 2 weeks. This note was generated with [employer] dictation software. It may contain incorrect words, spelling, and punctuation that were not noted in checking the note before signing.
== END 2023-03-28 23:59 | disposition home or self-care (01) ==
LOC: WC 08:00
PROVIDERS: PCP Family Medicine; Visit Provider Internal Medicine
DX: L97.922 Non-pressure chronic ulcer of unspecified part of left lower leg with fat layer exposed (principal); I73.9 Peripheral vascular disease, unspecified; I87.2 Venous insufficiency (chronic) (peripheral); T14.8XXD Other injury of unspecified body region, subsequent encounter
CPT/HCPCS: 11042

== ENCOUNTER 2023-04-12 08:00 | Outpatient (RCR) | payer OTHER, SELFPAY ==
[2023-03-29 00:27] VITALS: BP 164/88; PULSE 83; RESP 16; TEMP 35.8; O2SAT 99; BMI 31.4
[2023-03-29 08:08] VITALS: BP 166/88; PULSE 89; RESP 18; TEMP 36.8; BMI 31.4
--- NOTE | 2023-03-29 08:30 | PN.PCM_ITS ---
History of Present Illness Date of Service: 03/29/23 Chief Complaint: ulcers to the left lower leg History of Wound: This is a 54-year-old male presents to wound healing center with a long-standing history of chronic venous insufficiency, chronic venous hypertension, lower extremity edema, lower extremity pain, and chronic left lower extremity ulcer. The patient has previously undergone endovenous laser ablation of the left and right great saphenous vein, the small saphenous vein, the left accessory saphenous vein, and an incompetent left calf deckhand tuna boat vein located 15 cm proximal to the left medial malleolus. He is currently wearing graduated compression stockings which are documented to be 20-30 mmHg compression and these are thigh high. He reports great compliance with use. He is also had previous arterial work-up with no intervention recommended by letter, his vascular surgeon. He denies taking nutritional supplementation. He saw dermatology and had a biopsy of the ulcer site. He also was previously treated by infectious disease for various contaminations and infections. He is not antibiotics at this time nor does he have any redness or odor coming from the wound. He denies fever, chill, nausea, vomiting, loss of appetite. 05/18/22: Mr. Jeronimo presents with a new right lower extremity ulceration. He states that this has been present for months and he has been trying to manage it at home without any significant improvement. Opened up months ago, no known precipitating factor. Has been applying wound dressings without any significant improvement. He reports increased drainage. Denies significant pain. No chills, fever or feeling of unwell. Progress of Wound: Stable ulcer, no new concerns at this time. Objective Data Objective Data Vital Signs: Vital Signs Temp Pulse Resp BP Pulse Ox 98.2 F 89 18 166/88 H 99 03/29/23 08:08 03/29/23 08:08 03/29/23 08:08 03/29/23 08:08 03/29/23 00:27 Body Mass Index (BMI) 31.4 Charges/Coding Procedures Integumentary 111xxx-113xx: 96569 Lakeisha subq tissue 20 sq cm/< Physical Exam Const alert, oriented x3 and no apparent distress General Appearance: cooperative and comfortable Orientation / Consciousness: awake HEENT normocephalic Head and Scalp: normal to inspection, normocephalic and atraumatic Face and Sinus: normal facial exam Eyes EOMs intact bilaterally Neck full ROM and supple General: normal visual inspection Resp normal respiratory effort Effort and Inspection: able to speak in complete sentences GI non-tender Extremity normal to inspection General Extremity: edema Skin Wounds: wounds noted Neuro oriented x3 and CN's II-XII intact bilaterally Psych mental status grossly normal Appearance: grossly normal Debridement Note Debridement Note Wound debrided: Left medial ankle Type of Debridement: Excisional debridement Anesthesia Used: 5% Lidocaine Gel Depth: Down to and including healthy tissue and in the subcutaneous layer Percentage of wound debrided: 100 Instrument Used: 5mm curette Tissue Removed: Slough and devitalized tissue Severity: Fat Layer Exposed Amount of bleeding with debridement: Mild Bleeding Controlled with: Pressure Patient tolerated procedure: Patient tolerated procedure well Post-Debridement Measurements and Additional Note: Post-Debridement Measurements/Treatment - Nurse 1 - General Ulcer Assessment Start: 03/29/23 08:07 Freq: Status: Active Protocol: SHANTA Activity Type Activity Date Activity User E-sign Co-sign Detail Recorded Client Recorded Date Recorded By Document 03/29/23 08:08 DL [id number] 03/29/23 08:12 DL 03/29/23 08:08 - Today's Visit Information Type of service Follow-up Visit (Physician/HEAT TREATER APPRENTICE ) Arrival Mode Ambulatory Transfer Assistance None Patient Identification Verified (Name & Yes ) Patient Requires Transmission-Based No Precautions Height and Weight Body Mass Index (BMI) 31.4 BMI Classification Obese Vital Signs Temperature (97.8 F-99.1 F) 98.2 F Temperature Source Temporal Pulse Rate (60-100) 89 Pulse Location Monitor Respiratory Rate (12-18) 18 Respiratory rate source Observation Blood Pressure (90/60-120/80) 166/88 H Blood Pressure Mean (mm Hg) 114 Source Monitor History Since Last Visit- (Skip if this is Patient's initial visit) Have you changed medications since your No last visit? Any new allergies or adverse reactions No Had a fall/change in ADL's that may No increase risk of falls Signs or symptoms of abuse and/or No neglect since last visit Have you been in the hospital since your No last visit? Has dressing in place as prescribed Yes Has compression in place as prescribed Yes Has offloadiing in place as prescribed N/A Experienced any changes in pain level or No management Pain Scale: 0-10 Numeric Is Patient Pain Free? Yes - Nurse 1 - General Ulcer Measurement Start: 03/29/23 08:07 Freq: Status: Active Protocol: Activity Type Activity Date Activity User E-sign Co-sign Detail Recorded Client Recorded Date Recorded By Document 03/29/23 08:08 DL [id number] 03/29/23 08:12 DL 03/29/23 08:08 Wound Center Nurse 1 #10 Left Medial Ankle -Current Size (cm) - Length 4 -Current Size (cm) - Width 2.5 -Current Size (cm) - Depth 0.2 -Total Square Cm 10.0 -Photo Taken No -Exudate Amt Medium -Exudate Type Serosanguineous -Wound Margin Thickened -Granulation Amt Small (1-33%) -Granulation Quality [place] -Necrosis Amt Large (67-100%) -Necrotic Tissue Type Adherent Slough -Structure Exposed N/A -Texture (Ara-wound Skin Appearance) Scarring -Moisture (Ara-wound Skin Appearance) Dry/Scaly -Color (Ara-wound Skin Appearance) Hemosiderin Staining -Temperature (Ara-wound Skin No Abnormality Appearance) (Pt Warm) -Tenderness on Palpation (Ara-wound No Skin Appearance) -Ulcer Cleansing Soap and Water -Foul Odor after Cleansing No -Anesthetic Used 5% Lidocaine Gel WC - Nurse 2 - General Ulcer CM Notes Start: 03/29/23 08:07 Freq: Status: Active Protocol: Activity Type Activity Date Activity User E-sign Co-sign Detail Recorded Client Recorded Date Recorded By Document 03/29/23 08:27 MW [id number] 03/29/23 08:28 MW 03/29/23 08:27 Wound Center Nurse 2 -Time 08:27 -Correct Patient Yes -Correct Side, Site, Position Yes -Correct Procedure Yes -Procedure Performed Yes -Type of Procedure Debridement -Clinical Debridement Subcutaneous -Tissue Removed Subcutaneous -Post Debridement (cm) - Length 3.7 -Post Debridement (cm) - Width 2.8 -Post Debridement (cm) - Depth 0.2 -Total Square (Post) (cm) 10.36 -Area of Debridement (cm) - Length 3.7 -Area of Debridement (cm) - Width 2.8 -Total Square (Area) (cm) 10.36 -Tunneling No -Undermining/Tunneling No -Circular Undermining No -Wound/Ulcer Outcome Not Healed -Ulcer Cleansing Rinsed/ Irrigated with Saline -Foul Odor after Cleansing No -Bioengineered Tissue No -Bleeding Controlled with Pressure -Treatment Response Procedure Tolerated Well -Offloading No -Debridement - Subq, 1st 20sq cm Yes Pain Scale: 0-10 Numeric Is Patient Pain Free? Yes WC - Nurse 3 - General Ulcer D/C NN Start: 03/29/23 08:07 Freq: Status: Active Protocol: Activity Type Activity Date Activity User E-sign Co-sign Detail Recorded Client Recorded Date Recorded By Document 03/29/23 08:28 MW [id number] 03/29/23 08:29 MW 03/29/23 08:28 Wound Care Center Nurse 3 #10 Left Medial Ankle -Ulcer Cleansing Rinsed/ Irrigated with Saline -Other Dressing abd -Primary Dressing Covered/Secured with Secured with Tape Treatment Response Procedure Tolerated Well Pain Scale: 0-10 Numeric Is Patient Pain Free? Yes Teaching: Wound Center Dressing Your Wound -Person Taught Patient -Teaching Method Discussion -Response to teaching Verbalize understanding WC - Visit Discharge Discharge Condition Stable Ambulatory Status Ambulatory Transportation Private Auto Accompanied by self Medication Reconcilliation completed & No provided to patient/care provider Clinical Summary of Care Provided Yes Assessment/Plan Assessment/Plan (1) Ulcer of left lower extremity with fat layer exposed: CODE(S): L97.922 - Non-pressure chronic ulcer of unspecified part of left lower leg with fat layer exposed (2) PVD (peripheral vascular disease): CODE(S): I73.9 - Peripheral vascular disease, unspecified (3) Chronic venous insufficiency: CODE(S): I87.2 - Venous insufficiency (chronic) (peripheral) (4) Delayed wound healing: CODE(S): T14.8XXD - Other injury of unspecified body region, subsequent encounter PLAN: Plan Debridement done as documented above, procedure was well-tolerated. Stable. Continue Aquacel and care max to left medial ankle ulcer. Continue mupirocin ointment as well. Continue use of compression stockings, leg elevation and exercise. Increased protein intake, protein supplements, zinc and vitamin C also recommended. Continue multivitamins. His questions were answered and he was advised to call with any further questions or concerns. Follow-up in [place]. This note was generated with [employer] dictation software. It may contain incorrect words, spelling, and punctuation that were not noted in checking the note before signing.
[2023-04-12 08:34] VITALS: BP 152/78; PULSE 87; TEMP 35.2; BMI 31.4
--- NOTE | 2023-04-12 09:14 | PN.PCM_ITS ---
History of Present Illness Date of Service: 04/12/23 Chief Complaint: ulcers to the left lower leg History of Wound: This is a 54-year-old male presents to wound healing center with a long-standing history of chronic venous insufficiency, chronic venous hypertension, lower extremity edema, lower extremity pain, and chronic left lower extremity ulcer. 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 He is currently wearing graduated compression stockings which are documented to be 20-30 mmHg compression and these are thigh high. He reports great compliance with use. He is also had previous arterial work-up with no intervention recommended by letter, his vascular surgeon. He denies taking nutritional supplementation. He saw dermatology and had a biopsy of the ulcer site. He also was previously treated by infectious disease for various contaminations and infections. He is not antibiotics at this time nor does he have any redness or odor coming from the wound. He denies fever, chill, nausea, vomiting, loss of appetite. 05/18/22: Mr. Jeronimo presents with a new right lower extremity ulceration. He states that this has been present for months and he has been trying to manage it at home without any significant improvement. Opened up months ago, no known precipitating factor. Has been applying wound dressings without any significant improvement. He reports increased drainage. Denies significant pain. No chills, fever or feeling of unwell. Progress of Wound: Stable ulcer, no new concerns at this time. Objective Data Objective Data Vital Signs: Vital Signs Temp Pulse Resp BP Pulse Ox 95.4 F L 87 18 152/78 H 99 04/12/23 08:34 04/12/23 08:34 03/29/23 08:08 04/12/23 08:34 03/29/23 00:27 Body Mass Index (BMI) 31.4 Charges/Coding Procedures Integumentary 111xxx-113xx: 20773 Lakeisha subq tissue 20 sq cm/< Physical Exam Const alert, oriented x3 and no apparent distress General Appearance: cooperative and comfortable HEENT normocephalic Head and Scalp: normal to inspection, normocephalic and atraumatic Eyes EOMs intact bilaterally Neck full ROM and supple General: normal visual inspection Resp normal respiratory effort Effort and Inspection: able to speak in complete sentences Extremity normal to inspection General Extremity: edema Skin Wounds: wounds noted Neuro oriented x3 and CN's II-XII intact bilaterally Psych mental status grossly normal Appearance: grossly normal Debridement Note Debridement Note Wound debrided: Left medial ankle Type of Debridement: Excisional debridement Anesthesia Used: 5% Lidocaine Gel Depth: Down to and including healthy tissue and in the subcutaneous layer Percentage of wound debrided: 100 Instrument Used: 5mm curette Tissue Removed: Slough and devitalized tissue Severity: Fat Layer Exposed Amount of bleeding with debridement: Mild Bleeding Controlled with: Pressure Patient tolerated procedure: Patient tolerated procedure well Post-Debridement Measurements and Additional Note: Post-Debridement Measurements/Treatment WC - Nurse 1 - General Ulcer Assessment Start: 03/29/23 08:07 Freq: Status: Active Protocol: SHANTA Activity Type Activity Date Activity User E-sign Co-sign Detail Recorded Client Recorded Date Recorded By Document 03/29/23 08:08 DL [id number] 03/29/23 08:12 DL Document 04/12/23 08:34 AK [id number] 04/12/23 08:35 AK 03/29/23 04/12/23 08:08 08:34 WC - Today's Visit Information Type of service Follow-up Visit Follow-up Visit (Physician/SLEEP TECHNICIAN (Physician/SLEEP TECHNICIAN ) ) Arrival Mode Ambulatory Ambulatory Transfer Assistance None Patient Identification Verified (Name & Yes Yes ) Patient Requires Transmission-Based No No Precautions Height and Weight Body Mass Index (BMI) 31.4 31.4 BMI Classification Obese Obese Vital Signs Temperature (97.8 F-99.1 F) 98.2 F 95.4 F L Temperature Source Temporal Temporal Pulse Rate (60-100) 89 87 Pulse Location Monitor Monitor Respiratory Rate (12-18) 18 Respiratory rate source Observation Blood Pressure (90/60-120/80) 166/88 H 152/78 H Blood Pressure Mean (mm Hg) 114 102 Source Monitor Monitor History Since Last Visit- (Skip if this is Patient's initial visit) Have you changed medications since your No No last visit? Any new allergies or adverse reactions No No Had a fall/change in ADL's that may No No increase risk of falls Signs or symptoms of abuse and/or No No neglect since last visit Have you been in the hospital since your No No last visit? Has dressing in place as prescribed Yes Yes Has compression in place as prescribed Yes Yes Has offloadiing in place as prescribed N/A Experienced any changes in pain level or No No management Left Footwear Regular Shoe Right Footwear Regular Shoe Pain Scale: 0-10 Numeric Is Patient Pain Free? Yes Yes WC - Nurse 1 - General Ulcer Measurement Start: 03/29/23 08:07 Freq: Status: Active Protocol: Activity Type Activity Date Activity User E-sign Co-sign Detail Recorded Client Recorded Date Recorded By Document 03/29/23 08:08 DL [id number] 03/29/23 08:12 DL Document 04/12/23 08:34 AK [id number] 04/12/23 08:35 AK 03/29/23 04/12/23 08:08 08:34 Wound Center Nurse 1 #10 Left Medial Ankle -Combined with other wound No -Current Size (cm) - Length 4 3.8 -Current Size (cm) - Width 2.5 2.5 -Current Size (cm) - Depth 0.2 0.1 -Total Square Cm 10.0 9.50 -Photo Taken No No -Tunneling No -Undermining/Tunneling No -Circular Undermining No -Change in Wound Grade/Stage No -Exudate Amt Medium Medium -Exudate Type Serosanguineous Serosanguineous -Wound Margin Thickened Distinct, Outline Attached -Granulation Amt Small (1-33%) Small (1-33%) -Granulation Quality Jennings Jennings -Slough/Fibrin Yes -Necrosis Amt Large (67-100%) Large (67-100%) -Necrotic Tissue Type Adherent Slough -Structure Exposed N/A N/A -Texture (Ara-wound Skin Appearance) Scarring Assessed, Scarring -Moisture (Ara-wound Skin Appearance) Dry/Scaly No Abnormality, Assessed -Color (Ara-wound Skin Appearance) Hemosiderin No Abnormality, Staining Assessed -Temperature (Ara-wound Skin No Abnormality No Abnormality Appearance) (Pt Warm) (Pt Warm) -Tenderness on Palpation (Ara-wound No No Skin Appearance) -Ulcer Cleansing Soap and Water Rinsed/ Irrigated with Saline -Foul Odor after Cleansing No No -Anesthetic Used 5% Lidocaine 5% Lidocaine Gel Gel Left Calf (cm) 37 Left Ankle (cm) 23 WC - Nurse 2 - General Ulcer CM Notes Start: 03/29/23 08:07 Freq: Status: Active Protocol: Activity Type Activity Date Activity User E-sign Co-sign Detail Recorded Client Recorded Date Recorded By Document 03/29/23 08:27 MW [id number] 03/29/23 08:28 MW Document 04/12/23 08:23 MW Desktop 04/12/23 08:24 MW 03/29/23 04/12/23 08:27 08:23 Wound Center Nurse 2 #10 Left Medial Ankle -Time 08:27 08:23 -Correct Patient Yes Yes -Correct Side, Site, Position Yes Yes -Correct Procedure Yes Yes -Procedure Performed Yes Yes -Type of Procedure Debridement Debridement -Clinical Debridement Subcutaneous Subcutaneous -Tissue Removed Subcutaneous Subcutaneous -Post Debridement (cm) - Length 3.7 4.0 -Post Debridement (cm) - Width 2.8 2.9 -Post Debridement (cm) - Depth 0.2 0.2 -Total Square (Post) (cm) 10.36 11.60 -Area of Debridement (cm) - Length 3.7 4.0 -Area of Debridement (cm) - Width 2.8 2.9 -Total Square (Area) (cm) 10.36 11.60 -Tunneling No No -Undermining/Tunneling No No -Circular Undermining No No -Wound/Ulcer Outcome Not Healed Not Healed -Ulcer Cleansing Rinsed/ Rinsed/ Irrigated with Irrigated with Saline Saline -Foul Odor after Cleansing No No -Bioengineered Tissue No No -Bleeding Controlled with Pressure Pressure -Treatment Response Procedure Procedure Tolerated Well Tolerated Well -Offloading No No -Debridement - Subq, 1st 20sq cm Yes Yes Pain Scale: 0-10 Numeric Is Patient Pain Free? Yes Yes - Nurse 3 - General Ulcer D/C NN Start: 03/29/23 08:07 Freq: Status: Active Protocol: Activity Type Activity Date Activity User E-sign Co-sign Detail Recorded Client Recorded Date Recorded By Document 03/29/23 08:28 MW [id number] 03/29/23 08:29 MW Document 04/12/23 08:24 MW Desktop 04/12/23 08:24 MW 03/29/23 04/12/23 08:28 08:24 Wound Care Center Nurse 3 #10 Left Medial Ankle -Ulcer Cleansing Rinsed/ Not Cleansed Irrigated with Saline -Other Dressing abd -Primary Dressing Covered/Secured with Secured with Secured with Tape Tape -Other Covering ABD Treatment Response Procedure Tolerated Well Pain Scale: 0-10 Numeric Is Patient Pain Free? Yes Yes Teaching: Wound Center Dressing Your Wound -Person Taught Patient Patient -Teaching Method Discussion Discussion, Demonstration -Response to teaching Verbalize Verbalize understanding understanding WC - Visit Discharge Discharge Condition Stable Stable Ambulatory Status Ambulatory Ambulatory Transportation Private Auto Private Auto Accompanied by self self Medication Reconcilliation completed & No No provided to patient/care provider Clinical Summary of Care Provided Yes Yes Assessment/Plan Assessment/Plan (1) Ulcer of left lower extremity with fat layer exposed: CODE(S): L97.922 - Non-pressure chronic ulcer of unspecified part of left lower leg with fat layer exposed (2) PVD (peripheral vascular disease): CODE(S): I73.9 - Peripheral vascular disease, unspecified (3) Chronic venous insufficiency: CODE(S): I87.2 - Venous insufficiency (chronic) (peripheral) (4) Delayed wound healing: CODE(S): T14.8XXD - Other injury of unspecified body region, subsequent encounter PLAN: Plan Debridement done as documented above, procedure was well-tolerated. Stable and less crusting. Continue Aquacel, adaptic and care max to left medial ankle ulcer. Continue mupirocin ointment as well. Continue use of compression stockings, leg elevation and exercise. Increased protein intake, protein supplements, zinc and vitamin C also recommended. Continue multivitamins. His questions were answered and he was advised to call with any further questions or concerns. Follow-up in 3 weeks. This note was generated with [employer] dictation software. It may contain incorrect words, spelling, and punctuation that were not noted in checking the note before signing.
== END 2023-04-27 23:59 | disposition home or self-care (01) ==
LOC: WC 08:00
PROVIDERS: PCP Family Medicine; Visit Provider Internal Medicine
DX: I87.2 Venous insufficiency (chronic) (peripheral) (principal); L97.322 Non-pressure chronic ulcer of left ankle with fat layer exposed; I73.9 Peripheral vascular disease, unspecified; R60.0 Localized edema
CPT/HCPCS: 11042

== ENCOUNTER 2023-05-24 08:00 | Outpatient (RCR) | payer OTHER, SELFPAY ==
[2023-04-28 01:05] VITALS: BP 152/78; PULSE 87; RESP 18; TEMP 35.2; O2SAT 99; BMI 31.4
[2023-05-10 08:06] VITALS: BP 148/89; PULSE 89; RESP 16; TEMP 36; BMI 31.4
--- NOTE | 2023-05-10 09:29 | PN.PCM_ITS ---
History of Present Illness Date of Service: 05/10/23 Chief Complaint: ulcers to the left lower leg History of Wound: This is a 54-year-old male presents to wound healing center with a long-standing history of chronic venous insufficiency, chronic venous hypertension, lower extremity edema, lower extremity pain, and chronic left lower extremity ulcer. 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 He is currently wearing graduated compression stockings which are documented to be 20-30 mmHg compression and these are thigh high. He reports great compliance with use. He is also had previous arterial work-up with no intervention recommended by letter, his vascular surgeon. He denies taking nutritional supplementation. He saw dermatology and had a biopsy of the ulcer site. He also was previously treated by infectious disease for various contaminations and infections. He is not antibiotics at this time nor does he have any redness or odor coming from the wound. He denies fever, chill, nausea, vomiting, loss of appetite. 05/18/22: Mr. Jeronimo presents with a new right lower extremity ulceration. He states that this has been present for months and he has been trying to manage it at home without any significant improvement. Opened up months ago, no known precipitating factor. Has been applying wound dressings without any significant improvement. He reports increased drainage. Denies significant pain. No chills, fever or feeling of unwell. Progress of Wound: No new concerns at this time. Has not been here in 4 weeks due to scheduling conflicts. Ulcer has remained stable. Objective Data Objective Data Vital Signs: Vital Signs Temp Pulse Resp BP Pulse Ox O2 Del Method 96.8 F L 89 16 148/89 H 99 Room Air 05/10/23 08:06 05/10/23 08:06 05/10/23 08:06 05/10/23 08:06 04/28/23 01:05 05/10/23 08:06 Oxygen Delivery Method Room Air Body Mass Index (BMI) 31.4 Charges/Coding Procedures Integumentary 111xxx-113xx: 03274 Lakeisha subq tissue 20 sq cm/< Physical Exam Const alert, oriented x3 and no apparent distress General Appearance: cooperative and comfortable HEENT normocephalic Head and Scalp: normal to inspection, normocephalic and atraumatic Eyes EOMs intact bilaterally Neck full ROM and supple General: normal visual inspection Resp normal respiratory effort Effort and Inspection: able to speak in complete sentences Extremity normal to inspection General Extremity: edema Skin Wounds: wounds noted Neuro oriented x3 and CN's II-XII intact bilaterally Psych mental status grossly normal Appearance: grossly normal Debridement Note Debridement Note Wound debrided: Left medial ankle Type of Debridement: Excisional debridement Anesthesia Used: 5% Lidocaine Gel Depth: Down to and including healthy tissue and in the subcutaneous layer Percentage of wound debrided: 100 Instrument Used: 5mm curette Tissue Removed: Slough and devitalized tissue Severity: Fat Layer Exposed Amount of bleeding with debridement: Mild Bleeding Controlled with: Pressure Patient tolerated procedure: Patient tolerated procedure well Post-Debridement Measurements and Additional Note: Post-Debridement Measurements/Treatment - Nurse 1 - General Ulcer Assessment Start: 05/10/23 08:06 Freq: Status: Active Protocol: SHANTA Activity Type Activity Date Activity User E-sign Co-sign Detail Recorded Client Recorded Date Recorded By Document 05/10/23 08:06 [id number] 05/10/23 08:16 KW 05/10/23 08:06 WC - Today's Visit Information Type of service Follow-up Visit (Physician/IMAGING MANAGER ) Arrival Mode Ambulatory Patient Identification Verified (Name & Yes ) Patient Requires Transmission-Based No Precautions Height and Weight Body Mass Index (BMI) 31.4 BMI Classification Obese Vital Signs Temperature (97.8 F-99.1 F) 96.8 F L Temperature Source Temporal Pulse Rate (60-100) 89 Pulse Location Monitor Respiratory Rate (12-18) 16 Respiratory rate source Observation Oxygen Delivery Method Room Air Blood Pressure (90/60-120/80) 148/89 H Blood Pressure Mean (mm Hg) 108 Source Monitor Position Sitting Blood Pressure Location Right Arm History Since Last Visit- (Skip if this is Patient's initial visit) Have you changed medications since your No last visit? Any new allergies or adverse reactions No Had a fall/change in ADL's that may No increase risk of falls Signs or symptoms of abuse and/or No neglect since last visit Have you been in the hospital since your No last visit? Has dressing in place as prescribed Yes Has compression in place as prescribed No Has offloadiing in place as prescribed No Experienced any changes in pain level or No management Left Footwear Regular Shoe Right Footwear Regular Shoe Pain Scale: 0-10 Numeric Is Patient Pain Free? Yes WC - Nurse 1 - General Ulcer Measurement Start: 05/10/23 08:06 Freq: Status: Active Protocol: Activity Type Activity Date Activity User E-sign Co-sign Detail Recorded Client Recorded Date Recorded By Document 05/10/23 08:06 KW [id number] 05/10/23 08:16 KW 05/10/23 08:06 Wound Center Nurse 1 #10 Left Medial Ankle -Combined with other wound No -Current Size (cm) - Length 4.3 -Current Size (cm) - Width 3.9 -Current Size (cm) - Depth 0.1 -Total Square Cm 16.77 -Date of Last Picture (Recall this 05/10/23 field) -Photo Taken Yes -Epithelialization Large 67-100% -Tunneling No -Undermining/Tunneling No -Circular Undermining No -Exudate Amt Small -Exudate Type Serosanguineous -Wound Margin Distinct, Outline Attached -Granulation Amt Medium (34-66%) -Granulation Quality Red -Necrosis Amt Small (1-33%) -Necrotic Tissue Type Adherent Slough -Texture (Ara-wound Skin Appearance) Assessed -Moisture (Ara-wound Skin Appearance) Assessed,Dry/ Scaly -Color (Ara-wound Skin Appearance) Assessed, Erythema -Temperature (Ara-wound Skin No Abnormality Appearance) (Pt Warm) -Tenderness on Palpation (Ara-wound No Skin Appearance) -Ulcer Cleansing Soap and Water -Foul Odor after Cleansing No -Anesthetic Used 5% Lidocaine Gel - Nurse 2 - General Ulcer CM Notes Start: 05/10/23 08:06 Freq: Status: Active Protocol: Activity Type Activity Date Activity User E-sign Co-sign Detail Recorded Client Recorded Date Recorded By Document 05/10/23 08:32 MW [id number] 05/10/23 08:33 MW 05/10/23 08:32 Wound Center Nurse 2 -Time 08:32 -Correct Patient Yes -Correct Side, Site, Position Yes -Correct Procedure Yes -Procedure Performed Yes -Type of Procedure Debridement -Clinical Debridement Subcutaneous -Tissue Removed Subcutaneous -Post Debridement (cm) - Length 4.0 -Post Debridement (cm) - Width 3.0 -Post Debridement (cm) - Depth 0.2 -Total Square (Post) (cm) 12.00 -Area of Debridement (cm) - Length 4.0 -Area of Debridement (cm) - Width 3.0 -Total Square (Area) (cm) 12.00 -Tunneling No -Undermining/Tunneling No -Circular Undermining No -Wound/Ulcer Outcome Not Healed -Ulcer Cleansing Rinsed/ Irrigated with Saline -Foul Odor after Cleansing No -Bioengineered Tissue No -Bleeding Controlled with Pressure -Treatment Response Procedure Tolerated Well -Offloading No -Debridement - Subq, 1st 20sq cm Yes Pain Scale: 0-10 Numeric Is Patient Pain Free? Yes - Nurse 3 - General Ulcer D/C NN Start: 05/10/23 08:06 Freq: Status: Active Protocol: Activity Type Activity Date Activity User E-sign Co-sign Detail Recorded Client Recorded Date Recorded By Document 05/10/23 08:41 DL [id number] 05/10/23 08:42 DL 05/10/23 08:41 Wound Care Center Nurse 3 #10 Left Medial Ankle -Ulcer Cleansing Rinsed/ Irrigated with Saline -Foul Odor after Cleansing No -Other Dressing ABD -Primary Dressing Covered/Secured with Dry Gauze, Secured with Tape Treatment Response Procedure Tolerated Well Pain Scale: 0-10 Numeric Is Patient Pain Free? Yes - Visit Discharge Discharge Condition Stable Ambulatory Status Ambulatory Transportation Private Auto Notes: ABD only this morning, pt will shower and dress wound at home today. Assessment/Plan Assessment/Plan (1) Ulcer of left lower extremity with fat layer exposed: CODE(S): L97.922 - Non-pressure chronic ulcer of unspecified part of left lower leg with fat layer exposed (2) PVD (peripheral vascular disease): CODE(S): I73.9 - Peripheral vascular disease, unspecified (3) Chronic venous insufficiency: CODE(S): I87.2 - Venous insufficiency (chronic) (peripheral) (4) Delayed wound healing: CODE(S): T14.8XXD - Other injury of unspecified body region, subsequent encounter PLAN: Plan Debridement done as documented above, procedure was well-tolerated. Stable ulcer. Good granulation and healthy looking tissue. Continue Aquacel, adaptic and care max to left medial ankle ulcer. Continue mupirocin ointment as well. Continue use of compression stockings, leg elevation and exercise. Increased protein intake, protein supplements, zinc and vitamin C also recommended. C ontinue multivitamins. His questions were answered and he was advised to call with any further questions or concerns. Follow-up in 2 weeks. This note was generated with [employer] dictation software. It may contain incorrect words, spelling, and punctuation that were not noted in checking the note before signing.
[2023-05-24 08:10] VITALS: BP 170/81; PULSE 107; RESP 16; TEMP 36.6; BMI 31.4
--- NOTE | 2023-05-24 09:01 | PN.PCM_ITS ---
History of Present Illness Date of Service: 05/24/23 Chief Complaint: ulcers to the left lower leg History of Wound: This is a 54-year-old male presents to wound healing center with a long-standing history of chronic venous insufficiency, chronic venous hypertension, lower extremity edema, lower extremity pain, and chronic left lower extremity ulcer. 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 He is currently wearing graduated compression stockings which are documented to be 20-30 mmHg compression and these are thigh high. He reports great compliance with use. He is also had previous arterial work-up with no intervention recommended by letter, his vascular surgeon. He denies taking nutritional supplementation. He saw dermatology and had a biopsy of the ulcer site. He also was previously treated by infectious disease for various contaminations and infections. He is not antibiotics at this time nor does he have any redness or odor coming from the wound. He denies fever, chill, nausea, vomiting, loss of appetite. 05/18/22: Mr. Jeronimo presents with a new right lower extremity ulceration. He states that this has been present for months and he has been trying to manage it at home without any significant improvement. Opened up months ago, no known precipitating factor. Has been applying wound dressings without any significant improvement. He reports increased drainage. Denies significant pain. No chills, fever or feeling of unwell. Progress of Wound: No new concerns at this time. Some improvement noted. However has some dryness, he admits that he has not been applying Adaptic. Objective Data Objective Data Vital Signs: Vital Signs Temp Pulse Resp BP Pulse Ox O2 Del Method 97.8 F 107 H 16 170/81 H 99 Room Air 05/24/23 08:10 05/24/23 08:10 05/24/23 08:10 05/24/23 08:10 04/28/23 01:05 05/24/23 08:10 Oxygen Delivery Method Room Air Body Mass Index (BMI) 31.4 Charges/Coding Procedures Integumentary 111xxx-113xx: 09720 Lakeisha subq tissue 20 sq cm/< Physical Exam Const alert, oriented x3 and no apparent distress General Appearance: cooperative and comfortable HEENT normocephalic Head and Scalp: normal to inspection, normocephalic and atraumatic Eyes EOMs intact bilaterally Neck full ROM and supple General: normal visual inspection Resp normal respiratory effort Effort and Inspection: able to speak in complete sentences Extremity normal to inspection General Extremity: edema Skin Wounds: wounds noted Neuro oriented x3 and CN's II-XII intact bilaterally Psych mental status grossly normal Appearance: grossly normal Debridement Note Debridement Note Wound debrided: Left medial ankle Type of Debridement: Excisional debridement Anesthesia Used: 5% Lidocaine Gel Depth: Down to and including healthy tissue and in the subcutaneous layer Percentage of wound debrided: 100 Instrument Used: 5mm curette Tissue Removed: Slough and devitalized tissue Severity: Fat Layer Exposed Amount of bleeding with debridement: Mild Bleeding Controlled with: Pressure Patient tolerated procedure: Patient tolerated procedure well Post-Debridement Measurements and Additional Note: Post-Debridement Measurements/Treatment - Nurse 1 - General Ulcer Assessment Start: 05/10/23 08:06 Freq: Status: Active Protocol: SHANTA Activity Type Activity Date Activity User E-sign Co-sign Detail Recorded Client Recorded Date Recorded By Document 05/10/23 08:06 [id number] 05/10/23 08:16 Document 05/24/23 08:10 [facility] [id number] 05/24/23 08:15 [facility] 05/10/23 05/24/23 08:06 08:10 - Today's Visit Information Type of service Follow-up Visit Follow-up Visit (Physician/PRECISION MECHANICAL INSTRUMENT MAKER (Physician/PRECISION MECHANICAL INSTRUMENT MAKER ) ) Arrival Mode Ambulatory Ambulatory Transfer Assistance None Patient Identification Verified (Name & Yes Yes ) Patient Requires Transmission-Based No No Precautions Height and Weight Body Mass Index (BMI) 31.4 31.4 BMI Classification Obese Obese Vital Signs Temperature (97.8 F-99.1 F) 96.8 F L 97.8 F Temperature Source Temporal Temporal Pulse Rate (60-100) 89 107 H Pulse Location Monitor Monitor Respiratory Rate (12-18) 16 16 Respiratory rate source Observation Observation Oxygen Delivery Method Room Air Room Air Blood Pressure (90/60-120/80) 148/89 H 170/81 H Blood Pressure Mean (mm Hg) 108 110 Source Monitor Monitor Position Sitting Sitting Blood Pressure Location Right Arm Right Arm History Since Last Visit- (Skip if this is Patient's initial visit) Have you changed medications since your No No last visit? Any new allergies or adverse reactions No No Had a fall/change in ADL's that may No No increase risk of falls Signs or symptoms of abuse and/or No No neglect since last visit Have you been in the hospital since your No No last visit? Has dressing in place as prescribed Yes Yes Has compression in place as prescribed No Yes Has offloadiing in place as prescribed No N/A Experienced any changes in pain level or No No management Left Footwear Regular Shoe Regular Shoe Right Footwear Regular Shoe Regular Shoe Pain Scale: 0-10 Numeric Is Patient Pain Free? Yes Yes WC - Nurse 1 - General Ulcer Measurement Start: 05/10/23 08:06 Freq: Status: Active Protocol: Activity Type Activity Date Activity User E-sign Co-sign Detail Recorded Client Recorded Date Recorded By Document 05/10/23 08:06 KW [id number] 05/10/23 08:16 KW Document 05/24/23 08:10 [facility] [id number] 05/24/23 08:15 BM 05/10/23 05/24/23 08:06 08:10 Wound Center Nurse 1 #10 Left Medial Ankle -Combined with other wound No No -Current Size (cm) - Length 4.3 3.6 -Current Size (cm) - Width 3.9 1.7 -Current Size (cm) - Depth 0.1 0.1 -Total Square Cm 16.77 6.12 -Date of Last Picture (Recall this 05/10/23 05/24/23 field) -Photo Taken Yes Yes -Epithelialization Large 67-100% Small 1-33% -Tunneling No No -Undermining/Tunneling No No -Circular Undermining No No -Exudate Amt Small Medium -Exudate Type Serosanguineous Serosanguineous -Wound Margin Distinct, Distinct, Outline Outline Attached Attached -Granulation Amt Medium (34-66%) Medium (34-66%) -Granulation Quality Red Red -Slough/Fibrin Yes -Necrosis Amt Small (1-33%) Medium (34-66%) -Necrotic Tissue Type Adherent Slough Adherent Slough -Texture (Ara-wound Skin Appearance) Assessed Assessed, Scarring -Moisture (Ara-wound Skin Appearance) Assessed,Dry/ Assessed,Dry/ Scaly Scaly -Color (Ara-wound Skin Appearance) Assessed, Assessed Erythema -Temperature (Ara-wound Skin No Abnormality No Abnormality Appearance) (Pt Warm) (Pt Warm) -Tenderness on Palpation (Ara-wound No No Skin Appearance) -Ulcer Cleansing Soap and Water Rinsed/ Irrigated with Saline -Foul Odor after Cleansing No No -Anesthetic Used 5% Lidocaine 5% Lidocaine Gel Gel Left Calf (cm) 35.7 Left Ankle (cm) 22.5 - Nurse 2 - General Ulcer CM Notes Start: 05/10/23 08:06 Freq: Status: Active Protocol: Activity Type Activity Date Activity User E-sign Co-sign Detail Recorded Client Recorded Date Recorded By Document 05/10/23 08:32 MW [id number] 05/10/23 08:33 MW Document 05/24/23 08:23 MW [id number] 05/24/23 08:27 MW 05/10/23 05/24/23 08:32 08:23 Wound Center Nurse 2 #10 Left Medial Ankle -Time 08:32 08:24 -Correct Patient Yes Yes -Correct Side, Site, Position Yes Yes -Correct Procedure Yes Yes -Procedure Performed Yes Yes -Type of Procedure Debridement Debridement -Clinical Debridement Subcutaneous Subcutaneous -Tissue Removed Subcutaneous Subcutaneous -Post Debridement (cm) - Length 4.0 3.8 -Post Debridement (cm) - Width 3.0 2.4 -Post Debridement (cm) - Depth 0.2 0.2 -Total Square (Post) (cm) 12.00 9.12 -Area of Debridement (cm) - Length 4.0 3.8 -Area of Debridement (cm) - Width 3.0 2.4 -Total Square (Area) (cm) 12.00 9.12 -Tunneling No No -Undermining/Tunneling No No -Circular Undermining No No -Wound/Ulcer Outcome Not Healed Not Healed -Ulcer Cleansing Rinsed/ Rinsed/ Irrigated with Irrigated with Saline Saline -Foul Odor after Cleansing No No -Bioengineered Tissue No No -Bleeding Controlled with Pressure Pressure -Treatment Response Procedure Procedure Tolerated Well Tolerated Well -Offloading No No -Debridement - Subq, 1st 20sq cm Yes Yes Pain Scale: 0-10 Numeric Is Patient Pain Free? Yes Yes - Nurse 3 - General Ulcer D/C NN Start: 05/10/23 08:06 Freq: Status: Active Protocol: Activity Type Activity Date Activity User E-sign Co-sign Detail Recorded Client Recorded Date Recorded By Document 05/10/23 08:41 DL [id number] 05/10/23 08:42 DL Document 05/24/23 08:31 [facility] [id number] 05/24/23 08:31 [facility] 05/10/23 05/24/23 08:41 08:31 Wound Care Center Nurse 3 #10 Left Medial Ankle -Ulcer Cleansing Rinsed/ Irrigated with Saline -Foul Odor after Cleansing No -Other Dressing ABD -Primary Dressing Covered/Secured with Dry Gauze, Secured with Tape -Other Covering abd per dl technical intern. pt going home to shower after work last night Left -Other pt applies own compression stocking Treatment Response Procedure Tolerated Well Pain Scale: 0-10 Numeric Is Patient Pain Free? Yes Yes WC - Visit Discharge Discharge Condition Stable Stable Ambulatory Status Ambulatory Ambulatory Transportation Private Auto Private Auto Notes: ABD only this morning, pt will shower and dress wound at home today. Assessment/Plan Assessment/Plan (1) Ulcer of left lower extremity with fat layer exposed: CODE(S): L97.922 - Non-pressure chronic ulcer of unspecified part of left lower leg with fat layer exposed (2) PVD (peripheral vascular disease): CODE(S): I73.9 - Peripheral vascular disease, unspecified (3) Chronic venous insufficiency: CODE(S): I87.2 - Venous insufficiency (chronic) (peripheral) (4) Delayed wound healing: CODE(S): T14.8XXD - Other injury of unspecified body region, subsequent encounter PLAN: Plan Debridement done as documented above, procedure was well-tolerated. Some improvement noted. Good granulation and healthy looking tissue. Continue Aquacel, adaptic and care max to left medial ankle ulcer. Continue mupirocin ointment as well. Continue use of compression stockings, leg elevation and exercise. Increased protein intake, protein supplements, zinc and vitamin C also recommended. Continue multivitamins. His questions were answered and he was advised to call with any further questions or concerns. Follow-up in 2 weeks. This note was generated with Leeo[employer] software. It may contain incorrect words, spelling, and punctuation that were not noted in checking the note before signing.
== END 2023-05-28 23:59 | disposition home or self-care (01) ==
LOC: WC 08:00
PROVIDERS: PCP Family Medicine; Visit Provider Internal Medicine
DX: I73.9 Peripheral vascular disease, unspecified (principal); L97.322 Non-pressure chronic ulcer of left ankle with fat layer exposed; I87.2 Venous insufficiency (chronic) (peripheral); R60.0 Localized edema
CPT/HCPCS: 11042

== ENCOUNTER 2023-06-21 09:00 | Outpatient (RCR) | payer OTHER, SELFPAY ==
[2023-05-29 00:17] VITALS: BP 170/81; PULSE 107; RESP 16; TEMP 36.6; O2SAT 99; BMI 31.4
[2023-06-07 08:04] VITALS: BP 149/77; PULSE 87; RESP 16; TEMP 36.3; BMI 31.4
--- NOTE | 2023-06-07 09:13 | PN.PCM_ITS ---
History of Present Illness Date of Service: 06/07/23 Chief Complaint: ulcers to the left lower leg History of Wound: This is a 54-year-old male presents to wound healing center with a long-standing history of chronic venous insufficiency, chronic venous hypertension, lower extremity edema, lower extremity pain, and chronic left lower extremity ulcer. The patient has previously undergone endovenous laser ablation of the left and right great saphenous vein, the small saphenous vein, the left accessory saphenous vein, and an incompetent left calf ground hand vein located 15 cm proximal to the left medial malleolus. He is currently wearing graduated compression stockings which are documented to be 20-30 mmHg compression and these are thigh high. He reports great compliance with use. He is also had previous arterial work-up with no intervention recommended by letter, his vascular surgeon. He denies taking nutritional supplementation. He saw dermatology and had a biopsy of the ulcer site. He also was previously treated by infectious disease for various contaminations and infections. He is not antibiotics at this time nor does he have any redness or odor coming from the wound. He denies fever, chill, nausea, vomiting, loss of appetite. 05/18/22: Mr. Jeronimo presents with a new right lower extremity ulceration. He states that this has been present for months and he has been trying to manage it at home without any significant improvement. Opened up months ago, no known precipitating factor. Has been applying wound dressings without any significant improvement. He reports increased drainage. Denies significant pain. No chills, fever or feeling of unwell. Progress of Wound: Stable. No new concerns at this time. Objective Data Objective Data Vital Signs: Vital Signs Temp Pulse Resp BP Pulse Ox O2 Del Method 97.4 F L 87 16 149/77 H 99 Room Air 06/07/23 08:04 06/07/23 08:04 06/07/23 08:04 06/07/23 08:04 05/29/23 00:17 06/07/23 08:04 Oxygen Delivery Method Room Air Body Mass Index (BMI) 31.4 Charges/Coding Procedures Integumentary 111xxx-113xx: 73338 Lakeisha subq tissue 20 sq cm/< Physical Exam Const alert, oriented x3 and no apparent distress General Appearance: cooperative and comfortable HEENT normocephalic Head and Scalp: normal to inspection, normocephalic and atraumatic Eyes EOMs intact bilaterally Neck full ROM and supple General: normal visual inspection Resp normal respiratory effort Effort and Inspection: able to speak in complete sentences Extremity normal to inspection General Extremity: edema Skin Wounds: wounds noted Neuro oriented x3 and CN's II-XII intact bilaterally Psych mental status grossly normal Appearance: grossly normal Debridement Note Debridement Note Wound debrided: Left medial ankle Type of Debridement: Excisional debridement Anesthesia Used: 5% Lidocaine Gel Depth: Down to and including healthy tissue and in the subcutaneous layer Percentage of wound debrided: 100 Instrument Used: 5mm curette Tissue Removed: Slough and devitalized tissue Severity: Fat Layer Exposed Amount of bleeding with debridement: Mild Bleeding Controlled with: Pressure Patient tolerated procedure: Patient tolerated procedure well Post-Debridement Measurements and Additional Note: Post-Debridement Measurements/Treatment - Nurse 1 - General Ulcer Assessment Start: 06/07/23 08:04 Freq: Status: Active Protocol: SHANTA Activity Type Activity Date Activity User E-sign Co-sign Detail Recorded Client Recorded Date Recorded By Document 06/07/23 08:04 [facility] [id number] 06/07/23 08:08 [facility] 06/07/23 08:04 - Today's Visit Information Type of service 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 ) Arrival Mode Ambulatory Transfer Assistance None Patient Identification Verified (Name & Yes ) Patient Requires Transmission-Based No Precautions Height and Weight Body Mass Index (BMI) 31.4 BMI Classification Obese Vital Signs Temperature (97.8 F-99.1 F) 97.4 F L Temperature Source Temporal Pulse Rate (60-100) 87 Pulse Location Monitor Respiratory Rate (12-18) 16 Respiratory rate source Observation Oxygen Delivery Method Room Air Blood Pressure (90/60-120/80) 149/77 H Blood Pressure Mean (mm Hg) 101 Source Monitor Position Sitting Blood Pressure Location Right Arm History Since Last Visit- (Skip if this is Patient's initial visit) Have you changed medications since your No last visit? Any new allergies or adverse reactions No Had a fall/change in ADL's that may No increase risk of falls Signs or symptoms of abuse and/or No neglect since last visit Have you been in the hospital since your No last visit? Has dressing in place as prescribed Yes Has compression in place as prescribed Yes Has offloadiing in place as prescribed N/A Experienced any changes in pain level or No management Left Footwear Regular Shoe Right Footwear Regular Shoe Pain Scale: 0-10 Numeric Is Patient Pain Free? Yes - Nurse 1 - General Ulcer Measurement Start: 06/07/23 08:04 Freq: Status: Active Protocol: Activity Type Activity Date Activity User E-sign Co-sign Detail Recorded Client Recorded Date Recorded By Document 06/07/23 08:04 [facility] [id number] 06/07/23 08:08 [facility] 06/07/23 08:04 Wound Center Nurse 1 #10 Left Medial Ankle -Combined with other wound No -Current Size (cm) - Length 2.8 -Current Size (cm) - Width 1.8 -Current Size (cm) - Depth 0.1 -Total Square Cm 5.04 -Date of Last Picture (Recall this 06/07/23 field) -Photo Taken Yes -Epithelialization Small 1-33% -Tunneling No -Undermining/Tunneling No -Circular Undermining No -Exudate Amt Medium -Exudate Type Serosanguineous -Wound Margin Distinct, Outline Attached -Granulation Amt Medium (34-66%) -Granulation Quality Red -Slough/Fibrin Yes -Necrosis Amt Medium (34-66%) -Necrotic Tissue Type Adherent Slough -Texture (Ara-wound Skin Appearance) Assessed, Scarring -Moisture (Ara-wound Skin Appearance) Assessed,Dry/ Scaly -Color (Ara-wound Skin Appearance) Assessed -Temperature (Ara-wound Skin No Abnormality Appearance) (Pt Warm) -Tenderness on Palpation (Ara-wound No Skin Appearance) -Ulcer Cleansing Rinsed/ Irrigated with Saline -Foul Odor after Cleansing No -Anesthetic Used 5% Lidocaine Gel Left Calf (cm) 36.6 Left Ankle (cm) 23 - Nurse 2 - General Ulcer CM Notes Start: 06/07/23 08:04 Freq: Status: Active Protocol: Activity Type Activity Date Activity User E-sign Co-sign Detail Recorded Client Recorded Date Recorded By Document 06/07/23 08:22 MW [id number] 06/07/23 08:27 MW 06/07/23 08:22 Wound Center Nurse 2 #10 Left Medial Ankle -Time 08:23 -Correct Patient Yes -Correct Side, Site, Position Yes -Correct Procedure Yes -Procedure Performed Yes -Type of Procedure Debridement -Clinical Debridement Subcutaneous -Tissue Removed Subcutaneous -Post Debridement (cm) - Length 3.5 -Post Debridement (cm) - Width 2.4 -Post Debridement (cm) - Depth 0.2 -Total Square (Post) (cm) 8.40 -Area of Debridement (cm) - Length 3.5 -Area of Debridement (cm) - Width 2.4 -Total Square (Area) (cm) 8.40 -Tunneling No -Undermining/Tunneling No -Circular Undermining No -Wound/Ulcer Outcome Not Healed -Ulcer Cleansing Rinsed/ Irrigated with Saline -Foul Odor after Cleansing No -Bioengineered Tissue No -Bleeding Controlled with Pressure -Treatment Response Procedure Tolerated Well -Offloading No -Debridement - Subq, 1st 20sq cm Yes Pain Scale: 0-10 Numeric Is Patient Pain Free? Yes - Nurse 3 - General Ulcer D/C NN Start: 06/07/23 08:04 Freq: Status: Active Protocol: Activity Type Activity Date Activity User E-sign Co-sign Detail Recorded Client Recorded Date Recorded By Document 06/07/23 08:27 MW [id number] 06/07/23 08:28 MW 06/07/23 08:27 Wound Care Center Nurse 3 #10 Left Medial Ankle -Ulcer Cleansing Rinsed/ Irrigated with Saline -Foul Odor after Cleansing No -Negative Pressure Wound Therapy N/A -Other Dressing ABD pad -Primary Dressing Covered/Secured with Secured with Tape Treatment Response Procedure Tolerated Well Pain Scale: 0-10 Numeric Is Patient Pain Free? Yes Teaching: Wound Center Dressing Your Wound -Person Taught Patient -Teaching Method Discussion -Response to teaching Verbalize understanding WC - Visit Discharge Discharge Condition Stable Ambulatory Status Ambulatory Transportation Private Auto Accompanied by self Medication Reconcilliation completed & No provided to patient/care provider Clinical Summary of Care Provided Yes Assessment/Plan Assessment/Plan (1) Ulcer of left lower extremity with fat layer exposed: CODE(S): L97.922 - Non-pressure chronic ulcer of unspecified part of left lower leg with fat layer exposed (2) PVD (peripheral vascular disease): CODE(S): I73.9 - Peripheral vascular disease, unspecified (3) Chronic venous insufficiency: CODE(S): I87.2 - Venous insufficiency (chronic) (peripheral) (4) Delayed wound healing: CODE(S): T14.8XXD - Other injury of unspecified body region, subsequent encounter PLAN: Plan Debridement done as documented above, procedure was well-tolerated. Stable. No new concerns at this time. Continue Aquacel, adaptic and care max to left medial ankle ulcer. Continue mupirocin ointment as well. Continue use of compression stockings, leg elevation and exercise. Increased protein intake, protein supplements, zinc and vitamin C also recommended. Continue multivitamins. His questions were answered and he was advised to call with any further questions or concerns. Follow-up in 2 weeks. This note was generated with Shoopi dictation software. It may contain incorrect words, spelling, and punctuation that were not noted in checking the note before signing.
[2023-06-21 08:54] VITALS: BP 163/92; PULSE 110; RESP 16; TEMP 36.4; BMI 31.4
--- NOTE | 2023-06-21 09:34 | PN.PCM_ITS ---
History of Present Illness Date of Service: 06/21/23 Chief Complaint: ulcers to the left lower leg History of Wound: This is a 54-year-old male presents to wound healing center with a long-standing history of chronic venous insufficiency, chronic venous hypertension, lower extremity edema, lower extremity pain, and chronic left lower extremity ulcer. The patient has previously undergone endovenous laser ablation of the left and right great saphenous vein, the small saphenous vein, the left accessory saphenous vein, and an incompetent left calf cold header vein located 15 cm proximal to the left medial malleolus. He is currently wearing graduated compression stockings which are documented to be 20-30 mmHg compression and these are thigh high. He reports great compliance with use. He is also had previous arterial work-up with no intervention recommended by letter, his vascular surgeon. He denies taking nutritional supplementation. He saw dermatology and had a biopsy of the ulcer site. He also was previously treated by infectious disease for various contaminations and infections. He is not antibiotics at this time nor does he have any redness or odor coming from the wound. He denies fever, chill, nausea, vomiting, loss of appetite. 05/18/22: Mr. Jeronimo presents with a new right lower extremity ulceration. He states that this has been present for months and he has been trying to manage it at home without any significant improvement. Opened up months ago, no known precipitating factor. Has been applying wound dressings without any significant improvement. He reports increased drainage. Denies significant pain. No chills, fever or feeling of unwell. Progress of Wound: New left dorsal foot wound/ulcer. Not sure how he sustained it, thinks his shoes may have rubbed on it. Left medial ankle ulcer is stable, no new concerns in that regard. Objective Data Objective Data Vital Signs: Vital Signs Temp Pulse Resp BP Pulse Ox O2 Del Method 97.5 F L 110 H 16 163/92 H 99 Room Air 06/21/23 08:54 06/21/23 08:54 06/21/23 08:54 06/21/23 08:54 05/29/23 00:17 06/21/23 08:54 Oxygen Delivery Method Room Air Body Mass Index (BMI) 31.4 Charges/Coding Procedures Integumentary 111xxx-113xx: 25659 Lakeisha subq tissue 20 sq cm/< Physical Exam Const alert, oriented x3 and no apparent distress General Appearance: cooperative and comfortable HEENT normocephalic Head and Scalp: normal to inspection, normocephalic and atraumatic Eyes EOMs intact bilaterally Neck full ROM and supple General: normal visual inspection Resp normal respiratory effort Effort and Inspection: able to speak in complete sentences Extremity normal to inspection General Extremity: edema Skin Wounds: wounds noted Neuro oriented x3 and CN's II-XII intact bilaterally Psych mental status grossly normal Appearance: grossly normal Debridement Note Debridement Note Wound debrided: Left medial ankle Type of Debridement: Excisional debridement Anesthesia Used: 5% Lidocaine Gel Depth: Down to and including healthy tissue and in the subcutaneous layer Percentage of wound debrided: 100 Instrument Used: 5mm curette Tissue Removed: Slough and devitalized tissue Severity: Fat Layer Exposed Amount of bleeding with debridement: Mild Bleeding Controlled with: Pressure Patient tolerated procedure: Patient tolerated procedure well Post-Debridement Measurements and Additional Note: Post-Debridement Measurements/Treatment - Nurse 1 - General Ulcer Assessment Start: 06/07/23 08:04 Freq: Status: Active Protocol: SHANTA Activity Type Activity Date Activity User E-sign Co-sign Detail Recorded Client Recorded Date Recorded By Document 06/07/23 08:04 [facility] [id number] 06/07/23 08:08 [facility] Document 06/21/23 08:54 [facility] [id number] 06/21/23 09:03 [facility] 06/07/23 06/21/23 08:04 08:54 - Today's Visit Information Type of service Follow-up Visit 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 Visit (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/CLAMP 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 ) ) Arrival Mode Ambulatory Ambulatory Transfer Assistance None None Patient Identification Verified (Name & Yes Yes ) Patient Requires Transmission-Based No No Precautions Height and Weight Body Mass Index (BMI) 31.4 31.4 BMI Classification Obese Obese Vital Signs Temperature (97.8 F-99.1 F) 97.4 F L 97.5 F L Temperature Source Temporal Temporal Pulse Rate (60-100) 87 110 H Pulse Location Monitor Monitor Respiratory Rate (12-18) 16 16 Respiratory rate source Observation Observation Oxygen Delivery Method Room Air Room Air Blood Pressure (90/60-120/80) 149/77 H 163/92 H Blood Pressure Mean (mm Hg) 101 115 Source Monitor Monitor Position Sitting Sitting Blood Pressure Location Right Arm Left Arm History Since Last Visit- (Skip if this is Patient's initial visit) Have you changed medications since your No No last visit? Any new allergies or adverse reactions No No Had a fall/change in ADL's that may No No increase risk of falls Signs or symptoms of abuse and/or No No neglect since last visit Have you been in the hospital since your No No last visit? Has dressing in place as prescribed Yes Yes Has compression in place as prescribed Yes Yes Has offloadiing in place as prescribed N/A N/A Experienced any changes in pain level or No No management Left Footwear Regular Shoe Regular Shoe Right Footwear Regular Shoe Regular Shoe Pain Scale: 0-10 Numeric Is Patient Pain Free? Yes Yes WC - Nurse 1 - General Ulcer Measurement Start: 06/07/23 08:04 Freq: Status: Active Protocol: Activity Type Activity Date Activity User E-sign Co-sign Detail Recorded Client Recorded Date Recorded By Document 06/07/23 08:04 [facility] [id number] 06/07/23 08:08 BM Document 06/21/23 08:54 [facility] [id number] 06/21/23 09:03 BMF 06/07/23 06/21/23 08:04 08:54 Wound Center Nurse 1 #17- L DORSAL FOOT -Combined with other wound No -Current Size (cm) - Length 1.6 -Current Size (cm) - Width 1.3 -Current Size (cm) - Depth 0.1 -Total Square Cm 2.08 -Date of Last Picture (Recall this 06/21/23 field) -Photo Taken Yes -Epithelialization None Present -Tunneling No -Undermining/Tunneling No -Circular Undermining No -Exudate Amt Medium -Exudate Type Serosanguineous -Wound Margin Distinct, Outline Attached -Granulation Amt Medium (34-66%) -Granulation Quality Red -Slough/Fibrin Yes -Necrosis Amt Medium (34-66%) -Necrotic Tissue Type Adherent Slough -Texture (Ara-wound Skin Appearance) Assessed, Scarring -Moisture (Ara-wound Skin Appearance) Assessed,Dry/ Scaly -Color (Aar-wound Skin Appearance) Assessed, Erythema -Temperature (Ara-wound Skin No Abnormality Appearance) (Pt Warm) -Tenderness on Palpation (Ara-wound No Skin Appearance) -Ulcer Cleansing Rinsed/ Irrigated with Saline -Foul Odor after Cleansing No -Anesthetic Used 5% Lidocaine Gel #10 Left Medial Ankle -Combined with other wound No No -Current Size (cm) - Length 2.8 3.4 -Current Size (cm) - Width 1.8 1.5 -Current Size (cm) - Depth 0.1 0.2 -Total Square Cm 5.04 5.10 -Date of Last Picture (Recall this 06/07/23 06/21/23 field) -Photo Taken Yes Yes -Epithelialization Small 1-33% Small 1-33% -Tunneling No No -Undermining/Tunneling No No -Circular Undermining No No -Exudate Amt Medium Medium -Exudate Type Serosanguineous Serosanguineous -Wound Margin Distinct, Distinct, Outline Outline Attached Attached -Granulation Amt Medium (34-66%) Medium (34-66%) -Granulation Quality Red Red -Slough/Fibrin Yes Yes -Necrosis Amt Medium (34-66%) Medium (34-66%) -Necrotic Tissue Type Adherent Slough Adherent Slough -Texture (Ara-wound Skin Appearance) Assessed, Assessed,Callus Scarring ,Scarring -Moisture (Ara-wound Skin Appearance) Assessed,Dry/ Assessed Scaly -Color (Ara-wound Skin Appearance) Assessed Assessed -Temperature (Ara-wound Skin No Abnormality No Abnormality Appearance) (Pt Warm) (Pt Warm) -Tenderness on Palpation (Ara-wound No No Skin Appearance) -Ulcer Cleansing Rinsed/ Rinsed/ Irrigated with Irrigated with Saline Saline -Foul Odor after Cleansing No No -Anesthetic Used 5% Lidocaine 5% Lidocaine Gel Gel Left Calf (cm) 36.6 35.4 Left Ankle (cm) 23 22.1 WC - Nurse 2 - General Ulcer CM Notes Start: 06/07/23 08:04 Freq: Status: Active Protocol: Activity Type Activity Date Activity User E-sign Co-sign Detail Recorded Client Recorded Date Recorded By Document 06/07/23 08:22 MW [id number] 06/07/23 08:27 MW Document 06/21/23 09:14 MW Desktop 06/21/23 09:24 MW 06/07/23 06/21/23 08:22 09:14 Wound Center Nurse 2 #17- L DORSAL FOOT -Time 09:14 -Correct Patient Yes -Correct Side, Site, Position Yes -Correct Procedure Yes -Procedure Performed Yes -Type of Procedure Debridement -Clinical Debridement Subcutaneous -Tissue Removed Subcutaneous -Post Debridement (cm) - Length 2.3 -Post Debridement (cm) - Width 0.7 -Post Debridement (cm) - Depth 0.1 -Total Square (Post) (cm) 1.61 -Area of Debridement (cm) - Length 2.3 -Area of Debridement (cm) - Width 0.7 -Total Square (Area) (cm) 1.61 -Tunneling No -Undermining/Tunneling No -Circular Undermining No -Wound/Ulcer Outcome Not Healed -Ulcer Cleansing Rinsed/ Irrigated with Saline -Foul Odor after Cleansing No -Bioengineered Tissue No -Bleeding Controlled with Pressure -Treatment Response Procedure Tolerated Well -Offloading No -Debridement - Subq, 1st 20sq cm Yes #10 Left Medial Ankle -Time 08: 09:15 -Correct Patient Yes Yes -Correct Side, Site, Position Yes Yes -Correct Procedure Yes Yes -Procedure Performed Yes Yes -Type of Procedure Debridement Debridement -Clinical Debridement Subcutaneous Subcutaneous -Tissue Removed Subcutaneous Subcutaneous -Post Debridement (cm) - Length 3.5 3.6 -Post Debridement (cm) - Width 2.4 2.0 -Post Debridement (cm) - Depth 0.2 0.2 -Total Square (Post) (cm) 8.40 7.20 -Area of Debridement (cm) - Length 3.5 3.6 -Area of Debridement (cm) - Width 2.4 2.0 -Total Square (Area) (cm) 8.40 7.20 -Tunneling No No -Undermining/Tunneling No No -Circular Undermining No No -Wound/Ulcer Outcome Not Healed Not Healed -Ulcer Cleansing Rinsed/ Rinsed/ Irrigated with Irrigated with Saline Saline -Foul Odor after Cleansing No No -Bioengineered Tissue No No -Bleeding Controlled with Pressure Pressure -Treatment Response Procedure Procedure Tolerated Well Tolerated Well -Offloading No No -Debridement - Subq, 1st 20sq cm Yes No Pain Scale: 0-10 Numeric Is Patient Pain Free? Yes Yes WC - Nurse 3 - General Ulcer D/C NN Start: 06/07/23 08:04 Freq: Status: Active Protocol: Activity Type Activity Date Activity User E-sign Co-sign Detail Recorded Client Recorded Date Recorded By Document 06/07/23 08:27 MW [id number] 06/07/23 08:28 MW Document 06/21/23 09:30 MW Desktop 06/21/23 09:32 MW 06/07/23 06/21/23 08:27 09:30 Wound Care Center Nurse 3 #17- L DORSAL FOOT -Ulcer Cleansing Rinsed/ Irrigated with Saline -Foul Odor after Cleansing No -Negative Pressure Wound Therapy N/A -Other Dressing bactroban, aquacel AG -Primary Dressing Covered/Secured with Secured with Tape -Other Covering kerramax care #10 Left Medial Ankle -Ulcer Cleansing Rinsed/ Rinsed/ Irrigated with Irrigated with Saline Saline -Foul Odor after Cleansing No No -Negative Pressure Wound Therapy N/A N/A -Other Dressing ABD pad bactroban, aquacel ag -Primary Dressing Covered/Secured with Secured with Tape -Other Covering kerramax care Left -Lotion applied to leg before No compression wrap -Stockings Yes Treatment Response Procedure Procedure Tolerated Well Tolerated Well Pain Scale: 0-10 Numeric Is Patient Pain Free? Yes Yes Teaching: Wound Center Dressing Your Wound -Person Taught Patient Patient -Teaching Method Discussion Discussion, Demonstration -Response to teaching Verbalize Verbalize understanding understanding WC - Visit Discharge Discharge Condition Stable Stable Ambulatory Status Ambulatory Ambulatory Transportation Private Auto Private Auto Accompanied by self self Medication Reconcilliation completed & No No provided to patient/care provider Clinical Summary of Care Provided Yes Yes Additional Wound Wound debrided: Left dorsal foot Type of Debridement: Excisional debridement Anesthesia Used: 5% Lidocaine Gel Depth: Down to and including healthy tissue and in the subcutaneous layer Percentage of wound debrided: 100 Instrument Used: 3mm curette Tissue Removed: Slough and devitalized tissue Severity: Fat Layer Exposed Amount of bleeding with debridement: Mild Bleeding Controlled with: Pressure Patient tolerated procedure: Patient tolerated procedure well Assessment/Plan Assessment/Plan (1) Ulcer of left lower extremity with fat layer exposed: CODE(S): L97.922 - Non-pressure chronic ulcer of unspecified part of left lower leg with fat layer exposed (2) PVD (peripheral vascular disease): CODE(S): I73.9 - Peripheral vascular disease, unspecified (3) Chronic venous insufficiency: CODE(S): I87.2 - Venous insufficiency (chronic) (peripheral) (4) Delayed wound healing: CODE(S): T14.8XXD - Other injury of unspecified body region, subsequent encounter PLAN: Plan Debridement done as documented above, procedure was well-tolerated. Stable left medial ankle but new left dorsal foot wound/ulcer. Cultures taken. Continue Aquacel, adaptic and care max to both ulcers. Continue mupirocin ointment as well. Continue use of compression stockings, leg elevation and exercise. Increased protein intake, protein supplements, zinc and vitamin C also recommended. Continue multivitamins. His questions were answered and he was advised to call with any further questions or concerns. Follow-up in 2 weeks. This note was generated with [employer] dictation software. It may contain incorrect words, spelling, and punctuation that were not noted in checking the note before signing.
== END 2023-06-28 23:59 | disposition home or self-care (01) ==
LOC: WC 09:00
PROVIDERS: PCP Family Medicine; Visit Provider Internal Medicine
DX: I73.9 Peripheral vascular disease, unspecified (principal); L97.322 Non-pressure chronic ulcer of left ankle with fat layer exposed; L97.522 Non-pressure chronic ulcer of other part of left foot with fat layer exposed; I87.2 Venous insufficiency (chronic) (peripheral); R60.0 Localized edema
CPT/HCPCS: 11042; 87070; 87075; 87077; 87186; 87205

== ENCOUNTER 2023-07-19 08:00 | Outpatient (RCR) | payer OTHER, SELFPAY ==
[2023-06-29 00:29] VITALS: BP 163/92; PULSE 110; RESP 16; TEMP 36.4; O2SAT 99; BMI 31.4
[2023-07-05 08:06] VITALS: BP 147/84; PULSE 99; RESP 18; TEMP 35.9; BMI 31.4
--- NOTE | 2023-07-05 08:50 | PCM.WC.PN ---
History of Present Illness Date of Service: 07/05/23 Chief Complaint: ulcers to the left lower leg History of Wound: This is a 54-year-old male presents to wound healing center with a long-standing history of chronic venous insufficiency, chronic venous hypertension, lower extremity edema, lower extremity pain, and chronic left lower extremity ulcer. The patient has previously undergone endovenous laser ablation of the left and right great saphenous vein, the small saphenous vein, the left accessory saphenous vein, and an incompetent left calf change management administrator vein located 15 cm proximal to the left medial malleolus. He is currently wearing graduated compression stockings which are documented to be 20-30 mmHg compression and these are thigh high. He reports great compliance with use. He is also had previous arterial work-up with no intervention recommended by letter, his vascular surgeon. He denies taking nutritional supplementation. He saw dermatology and had a biopsy of the ulcer site. He also was previously treated by infectious disease for various contaminations and infections. He is not antibiotics at this time nor does he have any redness or odor coming from the wound. He denies fever, chill, nausea, vomiting, loss of appetite. 05/18/22: Mr. Jeronimo presents with a new right lower extremity ulceration. He states that this has been present for months and he has been trying to manage it at home without any significant improvement. Opened up months ago, no known precipitating factor. Has been applying wound dressings without any significant improvement. He reports increased drainage. Denies significant pain. No chills, fever or feeling of unwell. Progress of Wound: No new concerns at this time. Tolerated Abx without any concerns. Objective Data Objective Data Vital Signs: Vital Signs Temp Pulse Resp BP Pulse Ox 96.7 F L 99 18 147/84 H 99 07/05/23 08:06 07/05/23 08:06 07/05/23 08:06 07/05/23 08:06 06/29/23 00:29 Body Mass Index (BMI) 31.4 Charges/Coding Procedures Integumentary 111xxx-113xx: [id number] [place] subq tissue 20 sq cm/< Physical Exam Const alert, oriented x3 and no apparent distress General Appearance: cooperative and comfortable HEENT normocephalic Head and Scalp: normal to inspection, normocephalic and atraumatic Eyes EOMs intact bilaterally Neck full ROM and supple General: normal visual inspection Resp normal respiratory effort Effort and Inspection: able to speak in complete sentences Extremity normal to inspection General Extremity: edema Skin Wounds: wounds noted Neuro oriented x3 and CN's II-XII intact bilaterally Psych mental status grossly normal Appearance: grossly normal Debridement Note Debridement Note Wound debrided: Left medial ankle Type of Debridement: Excisional debridement Anesthesia Used: 5% Lidocaine Gel Depth: Down to and including healthy tissue and in the subcutaneous layer Percentage of wound debrided: 100 Instrument Used: 5mm curette Tissue Removed: Slough and devitalized tissue Severity: Fat Layer Exposed Amount of bleeding with debridement: Mild Bleeding Controlled with: Pressure Patient tolerated procedure: Patient tolerated procedure well Post-Debridement Measurements and Additional Note: Post-Debridement Measurements/Treatment - Nurse 1 - General Ulcer Assessment Start: 07/05/23 08:06 Freq: Status: Active Protocol: SHANTA Activity Type Activity Date Activity User E-sign Co-sign Detail Recorded Client Recorded Date Recorded By Document 07/05/23 08:06 TRIPP [id number] 07/05/23 08:10 TRIPP 07/05/23 08:06 - Today's Visit Information Type of service Follow-up Visit (Physician/APPLICATION SYSTEMS ENGINEER ) Arrival Mode Ambulatory Transfer Assistance None Patient Identification Verified (Name & Yes ) Patient Requires Transmission-Based No Precautions Height and Weight Body Mass Index (BMI) 31.4 BMI Classification Obese Vital Signs Temperature (97.8 F-99.1 F) 96.7 F L Temperature Source Temporal Pulse Rate (60-100) 99 Pulse Location Monitor Respiratory Rate (12-18) 18 Respiratory rate source Observation Blood Pressure (90/60-120/80) 147/84 H Blood Pressure Mean (mm Hg) 105 Source Monitor Position Semi-Fowlers Blood Pressure Location Left Arm History Since Last Visit- (Skip if this is Patient's initial visit) Have you changed medications since your No last visit? Any new allergies or adverse reactions No Had a fall/change in ADL's that may No increase risk of falls Signs or symptoms of abuse and/or No neglect since last visit Have you been in the hospital since your No last visit? Has dressing in place as prescribed Yes Has compression in place as prescribed Yes Has offloadiing in place as prescribed No Experienced any changes in pain level or No management Left Footwear Regular Shoe Right Footwear Regular Shoe Pain Scale: 0-10 Numeric Is Patient Pain Free? Yes WC - Nurse 1 - General Ulcer Measurement Start: 07/05/23 08:06 Freq: Status: Active Protocol: Activity Type Activity Date Activity User E-sign Co-sign Detail Recorded Client Recorded Date Recorded By Document 07/05/23 08:06 TRIPP [id number] 07/05/23 08:10 TRIPP 07/05/23 08:06 Wound Center Nurse 1 #17- L DORSAL FOOT -Combined with other wound No -Current Size (cm) - Length 3 -Current Size (cm) - Width 1.4 -Current Size (cm) - Depth 0.1 -Total Square Cm 4.2 -Photo Taken Yes -Tunneling No -Undermining/Tunneling No -Circular Undermining No -Exudate Amt Medium -Exudate Type Serosanguineous -Wound Margin Distinct, Outline Attached -Granulation Amt Medium (34-66%) -Granulation Quality [place] -Slough/Fibrin Yes -Necrosis Amt Medium (34-66%) -Necrotic Tissue Type Adherent Slough -Structure Exposed N/A -Texture (Ara-wound Skin Appearance) Assessed -Moisture (Ara-wound Skin Appearance) Assessed -Color (Ara-wound Skin Appearance) Assessed -Temperature (Ara-wound Skin No Abnormality Appearance) (Pt Warm) -Tenderness on Palpation (Ara-wound No Skin Appearance) -Ulcer Cleansing Wound Cleanser -Foul Odor after Cleansing No -Anesthetic Used 5% Lidocaine Gel #10 Left Medial Ankle -Combined with other wound No -Current Size (cm) - Length 1 -Current Size (cm) - Width 0.4 -Current Size (cm) - Depth 0.2 -Total Square Cm 0.4 -Photo Taken Yes -Tunneling No -Undermining/Tunneling No -Circular Undermining No -Exudate Amt Medium -Exudate Type Serosanguineous -Wound Margin Distinct, Outline Attached -Granulation Amt Medium (34-66%) -Granulation Quality [place] -Slough/Fibrin Yes -Necrosis Amt Medium (34-66%) -Necrotic Tissue Type Adherent Slough -Structure Exposed N/A -Texture (Ara-wound Skin Appearance) Assessed -Moisture (Ara-wound Skin Appearance) Assessed -Color (Ara-wound Skin Appearance) Assessed -Temperature (Ara-wound Skin No Abnormality Appearance) (Pt Warm) -Tenderness on Palpation (Ara-wound No Skin Appearance) -Ulcer Cleansing Wound Cleanser -Foul Odor after Cleansing No -Anesthetic Used 5% Lidocaine Gel Left Calf (cm) 36.1 Left Ankle (cm) 22.7 WC - Nurse 2 - General Ulcer CM Notes Start: 07/05/23 08:06 Freq: Status: Active Protocol: Activity Type Activity Date Activity User E-sign Co-sign Detail Recorded Client Recorded Date Recorded By Document 07/05/23 08:27 CARLOS [id number] 07/05/23 08:29 CARLOS 07/05/23 08:27 Wound Center Nurse 2 #17- L DORSAL FOOT -Time 08:27 -Correct Patient Yes -Correct Side, Site, Position Yes -Correct Procedure Yes -Procedure Performed Yes -Type of Procedure Debridement -Clinical Debridement Subcutaneous -Tissue Removed Subcutaneous -Post Debridement (cm) - Length 2.0 -Post Debridement (cm) - Width 0.5 -Post Debridement (cm) - Depth 0.1 -Total Square (Post) (cm) 1.00 -Area of Debridement (cm) - Length 2.0 -Area of Debridement (cm) - Width 0.5 -Total Square (Area) (cm) 1.00 -Tunneling No -Undermining/Tunneling No -Circular Undermining No -Wound/Ulcer Outcome Not Healed -Ulcer Cleansing Rinsed/ Irrigated with Saline -Foul Odor after Cleansing Yes, Due to Product Use -Bioengineered Tissue No -Bleeding Controlled with Pressure -Treatment Response Procedure Tolerated Well -Offloading No -Debridement - Subq, 1st 20sq cm No #10 Left Medial Ankle -Time 08:28 -Correct Patient Yes -Correct Side, Site, Position Yes -Correct Procedure Yes -Procedure Performed Yes -Type of Procedure Debridement -Clinical Debridement Subcutaneous -Tissue Removed Subcutaneous -Post Debridement (cm) - Length 3.4 -Post Debridement (cm) - Width 2.0 -Post Debridement (cm) - Depth 0.2 -Total Square (Post) (cm) 6.80 -Area of Debridement (cm) - Length 3.4 -Area of Debridement (cm) - Width 2.0 -Total Square (Area) (cm) 6.80 -Tunneling No -Undermining/Tunneling No -Circular Undermining No -Wound/Ulcer Outcome Not Healed -Ulcer Cleansing Rinsed/ Irrigated with Saline -Foul Odor after Cleansing No -Bioengineered Tissue No -Bleeding Controlled with Pressure -Treatment Response Procedure Tolerated Well -Offloading No -Debridement - Subq, 1st 20sq cm Yes Pain Scale: 0-10 Numeric Is Patient Pain Free? Yes - Nurse 3 - General Ulcer D/C NN Start: 07/05/23 08:06 Freq: Status: Active Protocol: Activity Type Activity Date Activity User E-sign Co-sign Detail Recorded Client Recorded Date Recorded By Document 07/05/23 08:30 [facility] [id number] 07/05/23 08:31 [facility] 07/05/23 08:30 Wound Care Center Nurse 3 #17- L DORSAL FOOT -Other Dressing per rb -Primary Dressing Covered/Secured with Dry Gauze -Other Covering pt just goes home to shower after work #10 Left Medial Ankle -Other Dressing PER RB -Primary Dressing Covered/Secured with Dry Gauze -Other Covering PT GOES HOME TO SHOWER AFTER VISIT, AFTER WORKING ALL NIGHT BLE -Other PT APPLIED OWN COMPRSSION STOCKINGS Treatment Response Procedure Tolerated Well Pain Scale: 0-10 Numeric Is Patient Pain Free? Yes - Visit Discharge Discharge Condition Stable Ambulatory Status Ambulatory Transportation Private Auto Additional Wound Wound debrided: Left dorsal foot Type of Debridement: Excisional debridement Anesthesia Used: 5% Lidocaine Gel Depth: Down to and including healthy tissue and in the subcutaneous layer Percentage of wound debrided: 100 Instrument Used: 5mm curette Tissue Removed: Slough and devitalized tissue Severity: Fat Layer Exposed Amount of bleeding with debridement: Mild Bleeding Controlled with: Pressure Patient tolerated procedure: Patient tolerated procedure well Assessment/Plan Assessment/Plan (1) Ulcer of left lower extremity with fat layer exposed: CODE(S): L97.922 - Non-pressure chronic ulcer of unspecified part of left lower leg with fat layer exposed (2) PVD (peripheral vascular disease): CODE(S): I73.9 - Peripheral vascular disease, unspecified (3) Chronic venous insufficiency: CODE(S): I87.2 - Venous insufficiency (chronic) (peripheral) (4) Delayed wound healing: CODE(S): T14.8XXD - Other injury of unspecified body region, subsequent encounter PLAN: Plan Debridement done as documented above, procedure was well-tolerated. Improving ulcers. Continue Aquacel, adaptic and care max to both ulcers. Continue mupirocin ointment as well. Continue use of compression stockings, leg elevation and exercise. Increased protein intake, protein supplements, zinc and vitamin C also recommended. Continue multivitamins. His questions were answered and he was advised to call with any further questions or concerns. Follow-up in 2 weeks. This note was generated with [employer] dictation software. It may contain incorrect words, spelling, and punctuation that were not noted in checking the note before signing.
[2023-07-19 08:04] VITALS: BP 164/78; PULSE 93; RESP 16; TEMP 36.1; BMI 31.4
--- NOTE | 2023-07-19 08:46 | PCM.WC.PN ---
History of Present Illness Date of Service: 07/19/23 Chief Complaint: ulcers to the left lower leg History of Wound: This is a 54-year-old male presents to wound healing center with a long-standing history of chronic venous insufficiency, chronic venous hypertension, lower extremity edema, lower extremity pain, and chronic left lower extremity ulcer. 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 He is currently wearing graduated compression stockings which are documented to be 20-30 mmHg compression and these are thigh high. He reports great compliance with use. He is also had previous arterial work-up with no intervention recommended by letter, his vascular surgeon. He denies taking nutritional supplementation. He saw dermatology and had a biopsy of the ulcer site. He also was previously treated by infectious disease for various contaminations and infections. He is not antibiotics at this time nor does he have any redness or odor coming from the wound. He denies fever, chill, nausea, vomiting, loss of appetite. 05/18/22: Mr. Jeronimo presents with a new right lower extremity ulceration. He states that this has been present for months and he has been trying to manage it at home without any significant improvement. Opened up months ago, no known precipitating factor. Has been applying wound dressings without any significant improvement. He reports increased drainage. Denies significant pain. No chills, fever or feeling of unwell. Progress of Wound: More lower extremity swelling otherwise, no acute concerns. Objective Data Objective Data Vital Signs: Vital Signs Temp Pulse Resp BP Pulse Ox O2 Del Method 97 F L 93 16 164/78 H 99 Room Air 07/19/23 08:04 07/19/23 08:04 07/19/23 08:04 07/19/23 08:04 06/29/23 00:29 07/19/23 08:04 Oxygen Delivery Method Room Air Body Mass Index (BMI) 31.4 Charges/Coding Procedures Integumentary 111xxx-113xx: 79961 Lakeisha subq tissue 20 sq cm/< Physical Exam Const alert, oriented x3 and no apparent distress General Appearance: cooperative and comfortable HEENT normocephalic Head and Scalp: normal to inspection, normocephalic and atraumatic Eyes EOMs intact bilaterally Neck full ROM and supple General: normal visual inspection Resp normal respiratory effort Effort and Inspection: able to speak in complete sentences Extremity normal to inspection General Extremity: edema Skin Wounds: wounds noted Neuro oriented x3 and CN's II-XII intact bilaterally Psych mental status grossly normal Appearance: grossly normal Debridement Note Debridement Note Wound debrided: Left medial ankle Type of Debridement: Excisional debridement Anesthesia Used: 5% Lidocaine Gel Depth: Down to and including healthy tissue and in the subcutaneous layer Percentage of wound debrided: 100 Instrument Used: 5mm curette Tissue Removed: Slough and devitalized tissue Severity: Fat Layer Exposed Amount of bleeding with debridement: Mild Bleeding Controlled with: Pressure Patient tolerated procedure: Patient tolerated procedure well Post-Debridement Measurements and Additional Note: Post-Debridement Measurements/Treatment - Nurse 1 - General Ulcer Assessment Start: 07/05/23 08:06 Freq: Status: Active Protocol: SHANTA Activity Type Activity Date Activity User E-sign Co-sign Detail Recorded Client Recorded Date Recorded By Document 07/05/23 08:06 [id number] 07/05/23 08:10 Document 07/19/23 08:04 [facility] Desktop 07/19/23 08:10 [facility] 07/05/23 07/19/23 08:06 08:04 - Today's Visit Information Type of service Follow-up Visit Follow-up Visit (Physician/LIVESTOCK BUYER (Physician/LIVESTOCK BUYER ) ) Arrival Mode Ambulatory Ambulatory Transfer Assistance None None Patient Identification Verified (Name & Yes Yes ) Patient Requires Transmission-Based No No Precautions Height and Weight Body Mass Index (BMI) 31.4 31.4 BMI Classification Obese Obese Vital Signs Temperature (97.8 F-99.1 F) 96.7 F L 97 F L Temperature Source Temporal Temporal Pulse Rate (60-100) 99 93 Pulse Location Monitor Monitor Respiratory Rate (12-18) 18 16 Respiratory rate source Observation Observation Oxygen Delivery Method Room Air Blood Pressure (90/60-120/80) 147/84 H 164/78 H Blood Pressure Mean (mm Hg) 105 106 Source Monitor Monitor Position Semi-Fowlers Sitting Blood Pressure Location Left Arm Left Arm History Since Last Visit- (Skip if this is Patient's initial visit) Have you changed medications since your No No last visit? Any new allergies or adverse reactions No No Had a fall/change in ADL's that may No No increase risk of falls Signs or symptoms of abuse and/or No No neglect since last visit Have you been in the hospital since your No No last visit? Has dressing in place as prescribed Yes Yes Has compression in place as prescribed Yes Yes Has offloadiing in place as prescribed No N/A Experienced any changes in pain level or No No management Left Footwear Regular Shoe Regular Shoe Right Footwear Regular Shoe Regular Shoe Pain Scale: 0-10 Numeric Is Patient Pain Free? Yes Yes WC - Nurse 1 - General Ulcer Measurement Start: 07/05/23 08:06 Freq: Status: Active Protocol: Activity Type Activity Date Activity User E-sign Co-sign Detail Recorded Client Recorded Date Recorded By Document 07/05/23 08:06 RB [id number] 07/05/23 08:10 RB Document 07/19/23 08:04 [facility] Desktop 07/19/23 08:10 [facility] 07/05/23 07/19/23 08:06 08:04 Wound Center Nurse 1 #17- L DORSAL FOOT -Combined with other wound No No -Current Size (cm) - Length 3 1.7 -Current Size (cm) - Width 1.4 0.5 -Current Size (cm) - Depth 0.1 0.2 -Total Square Cm 4.2 0.85 -Photo Taken Yes Yes -Tunneling No No -Undermining/Tunneling No No -Circular Undermining No No -Exudate Amt Medium Medium -Exudate Type Serosanguineous Serosanguineous -Wound Margin Distinct, Thickened & Outline Rolled Under Attached -Granulation Amt Medium (34-66%) Medium (34-66%) -Granulation Quality Vinings Vinings -Slough/Fibrin Yes Yes -Necrosis Amt Medium (34-66%) Medium (34-66%) -Necrotic Tissue Type Adherent Slough Adherent Slough -Structure Exposed N/A N/A -Texture (Ara-wound Skin Appearance) Assessed Assessed -Moisture (Ara-wound Skin Appearance) Assessed Assessed -Color (Ara-wound Skin Appearance) Assessed Assessed -Temperature (Aar-wound Skin No Abnormality No Abnormality Appearance) (Pt Warm) (Pt Warm) -Tenderness on Palpation (Ara-wound No No Skin Appearance) -Ulcer Cleansing Wound Cleanser Wound Cleanser -Foul Odor after Cleansing No No -Anesthetic Used 5% Lidocaine 5% Lidocaine Gel Gel #10 Left Medial Ankle -Combined with other wound No No -Current Size (cm) - Length 1 3.3 -Current Size (cm) - Width 0.4 1.7 -Current Size (cm) - Depth 0.2 0.2 -Total Square Cm 0.4 5.61 -Photo Taken Yes Yes -Tunneling No No -Undermining/Tunneling No No -Circular Undermining No No -Exudate Amt Medium Medium -Exudate Type Serosanguineous Serosanguineous -Wound Margin Distinct, Thickened & Outline Rolled Under Attached -Granulation Amt Medium (34-66%) Medium (34-66%) -Granulation Quality Vinings Vinings -Slough/Fibrin Yes Yes -Necrosis Amt Medium (34-66%) Medium (34-66%) -Necrotic Tissue Type Adherent Slough Adherent Slough -Structure Exposed N/A N/A -Texture (Ara-wound Skin Appearance) Assessed Assessed -Moisture (Ara-wound Skin Appearance) Assessed Assessed -Color (Ara-wound Skin Appearance) Assessed Assessed -Temperature (Ara-wound Skin No Abnormality No Abnormality Appearance) (Pt Warm) (Pt Warm) -Tenderness on Palpation (Ara-wound No No Skin Appearance) -Ulcer Cleansing Wound Cleanser Wound Cleanser -Foul Odor after Cleansing No No -Anesthetic Used 5% Lidocaine 5% Lidocaine Gel Gel Lower Limb Edema Present Yes Left Calf (cm) 36.1 36.3 Left Ankle (cm) 22.7 22.7 WC - Nurse 2 - General Ulcer CM Notes Start: 07/05/23 08:06 Freq: Status: Active Protocol: Activity Type Activity Date Activity User E-sign Co-sign Detail Recorded Client Recorded Date Recorded By Document 07/05/23 08:27 CARLOS [id number] 07/05/23 08:29 JF Document 07/19/23 08:22 JF Desktop 07/19/23 08:26 07/05/23 07/19/23 08:27 08:22 Wound Center Nurse 2 #17- L DORSAL FOOT -Time 08:27 08:23 -Correct Patient Yes Yes -Correct Side, Site, Position Yes Yes -Correct Procedure Yes Yes -Procedure Performed Yes Yes -Type of Procedure Debridement Debridement -Clinical Debridement Subcutaneous Subcutaneous -Tissue Removed Subcutaneous Subcutaneous -Post Debridement (cm) - Length 2.0 2.0 -Post Debridement (cm) - Width 0.5 0.6 -Post Debridement (cm) - Depth 0.1 0.1 -Total Square (Post) (cm) 1.00 1.20 -Area of Debridement (cm) - Length 2.0 2.0 -Area of Debridement (cm) - Width 0.5 0.6 -Total Square (Area) (cm) 1.00 1.20 -Tunneling No No -Undermining/Tunneling No No -Circular Undermining No No -Wound/Ulcer Outcome Not Healed Not Healed -Ulcer Cleansing Rinsed/ Rinsed/ Irrigated with Irrigated with Saline Saline -Foul Odor after Cleansing Yes, Due to No Product Use -Bioengineered Tissue No No -Bleeding Controlled with Pressure Pressure -Treatment Response Procedure Procedure Tolerated Well Tolerated Well -Offloading No No -Debridement - Subq, 1st 20sq cm No No #10 Left Medial Ankle -Time 08:28 08:24 -Correct Patient Yes Yes -Correct Side, Site, Position Yes Yes -Correct Procedure Yes Yes -Procedure Performed Yes Yes -Type of Procedure Debridement Debridement -Clinical Debridement Subcutaneous Subcutaneous -Tissue Removed Subcutaneous Subcutaneous -Post Debridement (cm) - Length 3.4 3.5 -Post Debridement (cm) - Width 2.0 2.2 -Post Debridement (cm) - Depth 0.2 0.2 -Total Square (Post) (cm) 6.80 7.70 -Area of Debridement (cm) - Length 3.4 3.5 -Area of Debridement (cm) - Width 2.0 2.2 -Total Square (Area) (cm) 6.80 7.70 -Tunneling No No -Undermining/Tunneling No No -Circular Undermining No No -Wound/Ulcer Outcome Not Healed Not Healed -Ulcer Cleansing Rinsed/ Rinsed/ Irrigated with Irrigated with Saline Saline -Foul Odor after Cleansing No No -Bioengineered Tissue No No -Bleeding Controlled with Pressure Pressure -Treatment Response Procedure Procedure Tolerated Well Tolerated Well -Offloading No No -Debridement - Subq, 1st 20sq cm Yes Yes Pain Scale: 0-10 Numeric Is Patient Pain Free? Yes Yes WC - Nurse 3 - General Ulcer D/C NN Start: 07/05/23 08:06 Freq: Status: Active Protocol: Activity Type Activity Date Activity User E-sign Co-sign Detail Recorded Client Recorded Date Recorded By Document 07/05/23 08:30 [facility] [id number] 07/05/23 08:31 [facility] Document 07/19/23 08:28 RB Desktop 07/19/23 08:30 RB 07/05/23 07/19/23 08:30 08:28 Wound Care Center Nurse 3 #17- L DORSAL FOOT -Other Dressing per rb -Primary Dressing Covered/Secured with Dry Gauze Dry Gauze, Secured with Tape -Other Covering pt just goes home to shower after work #10 Left Medial Ankle -Other Dressing PER RB -Primary Dressing Covered/Secured with Dry Gauze Dry Gauze, Secured with Tape -Other Covering PT GOES HOME TO SHOWER AFTER VISIT, AFTER WORKING ALL NIGHT BLE -Stockings Yes -Other PT APPLIED OWN pt own stocking COMPRSSION STOCKINGS Treatment Response Procedure Procedure Tolerated Well Tolerated Well Pain Scale: 0-10 Numeric Is Patient Pain Free? Yes Yes WC - Visit Discharge Discharge Condition Stable Stable Ambulatory Status Ambulatory Ambulatory Transportation Private Auto Private Auto Medication Reconcilliation completed & No provided to patient/care provider Clinical Summary of Care Provided Yes Additional Wound Wound debrided: Left dorsal foot Type of Debridement: Excisional debridement Anesthesia Used: 5% Lidocaine Gel Depth: Down to and including healthy tissue and in the subcutaneous layer Percentage of wound debrided: 100 Instrument Used: 5mm curette Tissue Removed: Slough and devitalized tissue Severity: Fat Layer Exposed Amount of bleeding with debridement: Mild Bleeding Controlled with: Pressure Patient tolerated procedure: Patient tolerated procedure well Assessment/Plan Assessment/Plan (1) Ulcer of left lower extremity with fat layer exposed: CODE(S): L97.922 - Non-pressure chronic ulcer of unspecified part of left lower leg with fat layer exposed (2) PVD (peripheral vascular disease): CODE(S): I73.9 - Peripheral vascular disease, unspecified (3) Chronic venous insufficiency: CODE(S): I87.2 - Venous insufficiency (chronic) (peripheral) (4) Delayed wound healing: CODE(S): T14.8XXD - Other injury of unspecified body region, subsequent encounter PLAN: Plan Debridement done as documented above, procedure was well-tolerated. Stable ulcers. Continue Aquacel, adaptic and care max to both ulcers. Continue mupirocin ointment as well. Continue use of compression stockings, leg elevation and exercise. Increased protein intake, protein supplements, zinc and vitamin C also recommended. Continue multivitamins. His questions were answered and he was advised to call with any further questions or concerns. Follow-up in 2 weeks. This note was generated with [employer] software. It may contain incorrect words, spelling, and punctuation that were not noted in checking the note before signing.
== END 2023-07-28 23:59 | disposition home or self-care (01) ==
LOC: WC 08:00
PROVIDERS: PCP Family Medicine; Visit Provider Internal Medicine
DX: I73.9 Peripheral vascular disease, unspecified (principal); L97.522 Non-pressure chronic ulcer of other part of left foot with fat layer exposed; L97.322 Non-pressure chronic ulcer of left ankle with fat layer exposed; I87.2 Venous insufficiency (chronic) (peripheral); R60.0 Localized edema
CPT/HCPCS: 11042

== ENCOUNTER 2023-08-16 08:00 | Outpatient (RCR) | payer OTHER, SELFPAY ==
[2023-07-29 00:41] VITALS: BP 164/78; PULSE 93; RESP 16; TEMP 36.1; O2SAT 99; BMI 31.4
[2023-08-02 07:57] VITALS: BP 150/84; PULSE 94; RESP 16; TEMP 36.2; BMI 31.4
--- NOTE | 2023-08-02 09:48 | PN.PCM_ITS ---
History of Present Illness Date of Service: 08/02/23 Chief Complaint: ulcers to the left lower leg History of Wound: This is a 54-year-old male presents to wound healing center with a long-standing history of chronic venous insufficiency, chronic venous hypertension, lower extremity edema, lower extremity pain, and chronic left lower extremity ulcer. 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 He is currently wearing graduated compression stockings which are documented to be 20-30 mmHg compression and these are thigh high. He reports great compliance with use. He is also had previous arterial work-up with no intervention recommended by letter, his vascular surgeon. He denies taking nutritional supplementation. He saw dermatology and had a biopsy of the ulcer site. He also was previously treated by infectious disease for various contaminations and infections. He is not antibiotics at this time nor does he have any redness or odor coming from the wound. He denies fever, chill, nausea, vomiting, loss of appetite. 05/18/22: Mr. Jeronimo presents with a new right lower extremity ulceration. He states that this has been present for months and he has been trying to manage it at home without any significant improvement. Opened up months ago, no known precipitating factor. Has been applying wound dressings without any significant improvement. He reports increased drainage. Denies significant pain. No chills, fever or feeling of unwell. Progress of Wound: No new concerns at this time. Stable Ulcers Objective Data Objective Data Vital Signs: Vital Signs Temp Pulse Resp BP Pulse Ox O2 Del Method 97.2 F L 94 16 150/84 H 99 Room Air 08/02/23 07:57 08/02/23 07:57 08/02/23 07:57 08/02/23 07:57 07/29/23 00:41 08/02/23 07:57 Oxygen Delivery Method Room Air Body Mass Index (BMI) 31.4 Charges/Coding Procedures Integumentary 111xxx-113xx: 78448 Lakeisha subq tissue 20 sq cm/< Physical Exam Const alert, oriented x3 and no apparent distress General Appearance: cooperative and comfortable HEENT normocephalic Head and Scalp: normal to inspection, normocephalic and atraumatic Eyes EOMs intact bilaterally Neck full ROM and supple General: normal visual inspection Resp normal respiratory effort Effort and Inspection: able to speak in complete sentences Extremity normal to inspection General Extremity: edema Skin Wounds: wounds noted Neuro oriented x3 and CN's II-XII intact bilaterally Psych mental status grossly normal Appearance: grossly normal Debridement Note Debridement Note Wound debrided: Left medial ankle Type of Debridement: Excisional debridement Anesthesia Used: 5% Lidocaine Gel Depth: Down to and including healthy tissue and in the subcutaneous layer Percentage of wound debrided: 100 Instrument Used: 5mm curette Tissue Removed: Slough and devitalized tissue Severity: Fat Layer Exposed Amount of bleeding with debridement: Mild Bleeding Controlled with: Pressure Patient tolerated procedure: Patient tolerated procedure well Post-Debridement Measurements and Additional Note: Post-Debridement Measurements/Treatment - Nurse 1 - General Ulcer Assessment Start: 08/02/23 07:57 Freq: Status: Active Protocol: [email or web address].[email or web address] Activity Type Activity Date Activity User E-sign Co-sign Detail Recorded Client Recorded Date Recorded By Document 08/02/23 07:57 [facility] Desktop 08/02/23 08:03 [facility] 08/02/23 07:57 - Today's Visit Information Type of service Follow-up Visit (Physician/ONCOLOGIST ) Arrival Mode Ambulatory Transfer Assistance None Patient Identification Verified (Name & Yes ) Patient Requires Transmission-Based No Precautions Height and Weight Body Mass Index (BMI) 31.4 BMI Classification Obese Vital Signs Temperature (97.8 F-99.1 F) 97.2 F L Temperature Source Temporal Pulse Rate (60-100) 94 Pulse Location Monitor Respiratory Rate (12-18) 16 Respiratory rate source Observation Oxygen Delivery Method Room Air Blood Pressure (90/60-120/80) 150/84 H Blood Pressure Mean (mm Hg) 106 Source Monitor Position Sitting History Since Last Visit- (Skip if this is Patient's initial visit) Have you changed medications since your No last visit? Any new allergies or adverse reactions No Had a fall/change in ADL's that may No increase risk of falls Signs or symptoms of abuse and/or No neglect since last visit Have you been in the hospital since your No last visit? Has dressing in place as prescribed Yes Has compression in place as prescribed Yes Has offloadiing in place as prescribed N/A Experienced any changes in pain level or No management Left Footwear Regular Shoe Right Footwear Regular Shoe Pain Scale: 0-10 Numeric Is Patient Pain Free? Yes - Nurse 1 - General Ulcer Measurement Start: 08/02/23 07:57 Freq: Status: Active Protocol: Activity Type Activity Date Activity User E-sign Co-sign Detail Recorded Client Recorded Date Recorded By Document 08/02/23 07:57 [facility] Desktop 08/02/23 08:03 [facility] 08/02/23 07:57 Wound Center Nurse 1 #17- L DORSAL FOOT -Combined with other wound No -Current Size (cm) - Length 1.4 -Current Size (cm) - Width 0.5 -Current Size (cm) - Depth 0.2 -Total Square Cm 0.70 -Photo Taken No -Epithelialization None Present -Tunneling No -Undermining/Tunneling No -Circular Undermining No -Exudate Amt Medium -Exudate Type Serosanguineous -Wound Margin Distinct, Outline Attached -Granulation Amt Medium (34-66%) -Granulation Quality Red -Slough/Fibrin Yes -Necrosis Amt Medium (34-66%) -Necrotic Tissue Type Adherent Slough -Texture (Ara-wound Skin Appearance) Assessed, Scarring -Moisture (Ara-wound Skin Appearance) Assessed,Dry/ Scaly -Color (Ara-wound Skin Appearance) Assessed -Temperature (Ara-wound Skin No Abnormality Appearance) (Pt Warm) -Tenderness on Palpation (Ara-wound No Skin Appearance) -Ulcer Cleansing Rinsed/ Irrigated with Saline -Foul Odor after Cleansing No -Anesthetic Used 5% Lidocaine Gel #10 Left Medial Ankle -Combined with other wound No -Current Size (cm) - Length 3.5 -Current Size (cm) - Width 1.4 -Current Size (cm) - Depth 0.2 -Total Square Cm 4.90 -Photo Taken No -Epithelialization None Present -Tunneling No -Undermining/Tunneling No -Circular Undermining No -Exudate Amt Medium -Exudate Type Serosanguineous -Wound Margin Distinct, Outline Attached -Granulation Amt Medium (34-66%) -Granulation Quality Red -Slough/Fibrin Yes -Necrosis Amt Medium (34-66%) -Necrotic Tissue Type Adherent Slough -Texture (Ara-wound Skin Appearance) Assessed, Scarring -Moisture (Ara-wound Skin Appearance) Assessed,Dry/ Scaly -Color (Ara-wound Skin Appearance) Assessed -Temperature (Ara-wound Skin No Abnormality Appearance) (Pt Warm) -Tenderness on Palpation (Ara-wound No Skin Appearance) -Ulcer Cleansing Rinsed/ Irrigated with Saline -Foul Odor after Cleansing No -Anesthetic Used 5% Lidocaine Gel WC - Nurse 2 - General Ulcer CM Notes Start: 08/02/23 07:57 Freq: Status: Active Protocol: Activity Type Activity Date Activity User E-sign Co-sign Detail Recorded Client Recorded Date Recorded By Document 08/02/23 08:24 [facility] Desktop 08/02/23 08:30 08/02/23 08:24 Wound Center Nurse 2 #17- L DORSAL FOOT -Time 08:25 -Correct Patient Yes -Correct Side, Site, Position Yes -Correct Procedure Yes -Procedure Performed Yes -Type of Procedure Debridement -Clinical Debridement Subcutaneous -Tissue Removed Subcutaneous -Post Debridement (cm) - Length 1.5 -Post Debridement (cm) - Width 0.6 -Post Debridement (cm) - Depth 0.1 -Total Square (Post) (cm) 0.90 -Area of Debridement (cm) - Length 1.5 -Area of Debridement (cm) - Width 0.6 -Total Square (Area) (cm) 0.90 -Tunneling No -Undermining/Tunneling No -Circular Undermining No -Wound/Ulcer Outcome Not Healed -Ulcer Cleansing Rinsed/ Irrigated with Saline -Foul Odor after Cleansing No -Bioengineered Tissue No -Bleeding Controlled with Pressure -Treatment Response Procedure Tolerated Well -Offloading No -Debridement - Subq, 1st 20sq cm Yes #10 Left Medial Ankle -Time 08:25 -Correct Patient Yes -Correct Side, Site, Position Yes -Correct Procedure Yes -Procedure Performed Yes -Type of Procedure Debridement -Clinical Debridement Subcutaneous -Tissue Removed Subcutaneous -Post Debridement (cm) - Length 3.5 -Post Debridement (cm) - Width 2.5 -Post Debridement (cm) - Depth 0.2 -Total Square (Post) (cm) 8.75 -Area of Debridement (cm) - Length 3.5 -Area of Debridement (cm) - Width 2.5 -Total Square (Area) (cm) 8.75 -Tunneling No -Undermining/Tunneling No -Circular Undermining No -Wound/Ulcer Outcome Not Healed -Ulcer Cleansing Rinsed/ Irrigated with Saline -Foul Odor after Cleansing No -Bioengineered Tissue No -Bleeding Controlled with Pressure -Treatment Response Procedure Tolerated Well -Debridement - Subq, 1st 20sq cm No Pain Scale: 0-10 Numeric Is Patient Pain Free? Yes Additional Wound Wound debrided: Left dorsal foot Type of Debridement: Excisional debridement Anesthesia Used: 5% Lidocaine Gel Depth: Down to and including healthy tissue and in the subcutaneous layer Percentage of wound debrided: 100 Instrument Used: 5mm curette Tissue Removed: Slough and devitalized tissue Severity: Fat Layer Exposed Amount of bleeding with debridement: Mild Bleeding Controlled with: Pressure Patient tolerated procedure: Patient tolerated procedure well Assessment/Plan Assessment/Plan (1) Ulcer of left lower extremity with fat layer exposed: CODE(S): L97.922 - Non-pressure chronic ulcer of unspecified part of left lower leg with fat layer exposed (2) PVD (peripheral vascular disease): CODE(S): I73.9 - Peripheral vascular disease, unspecified (3) Chronic venous insufficiency: CODE(S): I87.2 - Venous insufficiency (chronic) (peripheral) (4) Delayed wound healing: CODE(S): T14.8XXD - Other injury of unspecified body region, subsequent encounter PLAN: Plan Debridement done as documented above, procedure was well-tolerated. Dorsal ulcer with some improvement. Continue Aquacel, adaptic and care max to both ulcers. Continue mupirocin ointment as well. Continue use of compression stockings, leg elevation and exercise. Increased protein intake, protein supplements, zinc and vitamin C also recommended. Continue multivitamins. His questions were answered and he was advised to call with any further questions or concerns. Follow-up in 2 weeks. This note was generated with [employer] software. It may contain incorrect words, spelling, and punctuation that were not noted in checking the note before signing.
[2023-08-16 08:06] VITALS: BP 157/65; PULSE 84; RESP 16; TEMP 35.5; BMI 31.4
--- NOTE | 2023-08-16 09:18 | PN.PCM_ITS ---
History of Present Illness Date of Service: 08/16/23 Chief Complaint: ulcers to the left lower leg History of Wound: This is a 54-year-old male presents to wound healing center with a long-standing history of chronic venous insufficiency, chronic venous hypertension, lower extremity edema, lower extremity pain, and chronic left lower extremity ulcer. The patient has previously undergone endovenous laser ablation of the left and right great saphenous vein, the small saphenous vein, the left accessory saphenous vein, and an incompetent left calf mammal control agent vein located 15 cm proximal to the left medial malleolus. He is currently wearing graduated compression stockings which are documented to be 20-30 mmHg compression and these are thigh high. He reports great compliance with use. He is also had previous arterial work-up with no intervention recommended by letter, his vascular surgeon. He denies taking nutritional supplementation. He saw dermatology and had a biopsy of the ulcer site. He also was previously treated by infectious disease for various contaminations and infections. He is not antibiotics at this time nor does he have any redness or odor coming from the wound. He denies fever, chill, nausea, vomiting, loss of appetite. 05/18/22: Mr. Jeronimo presents with a new right lower extremity ulceration. He states that this has been present for months and he has been trying to manage it at home without any significant improvement. Opened up months ago, no known precipitating factor. Has been applying wound dressings without any significant improvement. He reports increased drainage. Denies significant pain. No chills, fever or feeling of unwell. Progress of Wound: No new concerns at this time. Some improvement noted. Objective Data Objective Data Vital Signs: Vital Signs Temp Pulse Resp BP Pulse Ox O2 Del Method 95.9 F L 84 16 157/65 H 99 Room Air 08/16/23 08:06 08/16/23 08:06 08/16/23 08:06 08/16/23 08:06 07/29/23 00:41 08/16/23 08:06 Oxygen Delivery Method Room Air Body Mass Index (BMI) 31.4 Charges/Coding Procedures Integumentary 111xxx-113xx: 81105 Lakeisha subq tissue 20 sq cm/< Physical Exam Const alert, oriented x3 and no apparent distress General Appearance: cooperative and comfortable HEENT normocephalic Head and Scalp: normal to inspection, normocephalic and atraumatic Eyes EOMs intact bilaterally Neck full ROM and supple General: normal visual inspection Resp normal respiratory effort Effort and Inspection: able to speak in complete sentences Extremity normal to inspection General Extremity: edema Skin Wounds: wounds noted Neuro oriented x3 and CN's II-XII intact bilaterally Psych mental status grossly normal Appearance: grossly normal Debridement Note Debridement Note Wound debrided: Left medial ankle Type of Debridement: Excisional debridement Anesthesia Used: 5% Lidocaine Gel Depth: Down to and including healthy tissue and in the subcutaneous layer Percentage of wound debrided: 100 Instrument Used: 5mm curette Tissue Removed: Slough and devitalized tissue Severity: Fat Layer Exposed Amount of bleeding with debridement: Mild Bleeding Controlled with: Pressure Patient tolerated procedure: Patient tolerated procedure well Post-Debridement Measurements and Additional Note: Post-Debridement Measurements/Treatment - Nurse 1 - General Ulcer Assessment Start: 08/02/23 07:57 Freq: Status: Active Protocol: [facility] Activity Type Activity Date Activity User E-sign Co-sign Detail Recorded Client Recorded Date Recorded By Document 08/02/23 07:57 [employer] 08/02/23 08:03 [facility] Document 08/16/23 08:06 [employer] 08/16/23 08:09 [employer] 08/02/23 08/16/23 07:57 08:06 - Today's Visit Information Type of service Follow-up Visit Follow-up Visit (Physician/ADJUSTMENT EXAMINER (Physician/ADJUSTMENT EXAMINER ) ) Arrival Mode Ambulatory Ambulatory Transfer Assistance None None Patient Identification Verified (Name & Yes Yes ) Patient Requires Transmission-Based No No Precautions Height and Weight Body Mass Index (BMI) 31.4 31.4 BMI Classification Obese Obese Vital Signs Temperature (97.8 F-99.1 F) 97.2 F L 95.9 F L Temperature Source Temporal Temporal Pulse Rate (60-100) 94 84 Pulse Location Monitor Monitor Respiratory Rate (12-18) 16 16 Respiratory rate source Observation Observation Oxygen Delivery Method Room Air Room Air Blood Pressure (90/60-120/80) 150/84 H 157/65 H Blood Pressure Mean (mm Hg) 106 95 Source Monitor Monitor Position Sitting Sitting Blood Pressure Location Left Arm History Since Last Visit- (Skip if this is Patient's initial visit) Have you changed medications since your No No last visit? Any new allergies or adverse reactions No No Had a fall/change in ADL's that may No No increase risk of falls Signs or symptoms of abuse and/or No No neglect since last visit Have you been in the hospital since your No No last visit? Has dressing in place as prescribed Yes Yes Has compression in place as prescribed Yes Yes Has offloadiing in place as prescribed N/A N/A Experienced any changes in pain level or No No management Left Footwear Regular Shoe Regular Shoe Right Footwear Regular Shoe Regular Shoe Pain Scale: 0-10 Numeric Is Patient Pain Free? Yes Yes WC - Nurse 1 - General Ulcer Measurement Start: 08/02/23 07:57 Freq: Status: Active Protocol: Activity Type Activity Date Activity User E-sign Co-sign Detail Recorded Client Recorded Date Recorded By Document 08/02/23 07:57 [facility] Desktop 08/02/23 08:03 [facility] Document 08/16/23 08:06 [employer] Desktop 08/16/23 08:09 [facility] 08/02/23 08/16/23 07:57 08:06 Wound Center Nurse 1 #17- L DORSAL FOOT -Combined with other wound No No -Current Size (cm) - Length 1.4 1.5 -Current Size (cm) - Width 0.5 0.4 -Current Size (cm) - Depth 0.2 0.2 -Total Square Cm 0.70 0.60 -Photo Taken No -Epithelialization None Present None Present -Tunneling No No -Undermining/Tunneling No No -Circular Undermining No No -Exudate Amt Medium Medium -Exudate Type Serosanguineous Serosanguineous -Wound Margin Distinct, Distinct, Outline Outline Attached Attached -Granulation Amt Medium (34-66%) None Present (0 %) -Granulation Quality Red -Slough/Fibrin Yes Yes -Necrosis Amt Medium (34-66%) Large (67-100%) -Necrotic Tissue Type Adherent Slough Adherent Slough -Texture (Ara-wound Skin Appearance) Assessed, Assessed, Scarring Scarring -Moisture (Ara-wound Skin Appearance) Assessed,Dry/ Assessed,Dry/ Scaly Scaly -Color (Ara-wound Skin Appearance) Assessed Assessed -Temperature (Ara-wound Skin No Abnormality No Abnormality Appearance) (Pt Warm) (Pt Warm) -Tenderness on Palpation (Ara-wound No No Skin Appearance) -Ulcer Cleansing Rinsed/ Soap and Water Irrigated with Saline -Foul Odor after Cleansing No No -Anesthetic Used 5% Lidocaine 5% Lidocaine Gel Gel #10 Left Medial Ankle -Combined with other wound No No -Current Size (cm) - Length 3.5 3.8 -Current Size (cm) - Width 1.4 2.1 -Current Size (cm) - Depth 0.2 0.2 -Total Square Cm 4.90 7.98 -Photo Taken No No -Epithelialization None Present None Present -Tunneling No No -Undermining/Tunneling No No -Circular Undermining No No -Exudate Amt Medium Medium -Exudate Type Serosanguineous Serosanguineous -Wound Margin Distinct, Distinct, Outline Outline Attached Attached -Granulation Amt Medium (34-66%) Small (1-33%) -Granulation Quality Red Pale -Slough/Fibrin Yes Yes -Necrosis Amt Medium (34-66%) Large (67-100%) -Necrotic Tissue Type Adherent Slough Adherent Slough -Texture (Ara-wound Skin Appearance) Assessed, Assessed,Callus Scarring ,Scarring -Moisture (Ara-wound Skin Appearance) Assessed,Dry/ Assessed Scaly -Color (Ara-wound Skin Appearance) Assessed Assessed -Temperature (Ara-wound Skin No Abnormality No Abnormality Appearance) (Pt Warm) (Pt Warm) -Tenderness on Palpation (Ara-wound No No Skin Appearance) -Ulcer Cleansing Rinsed/ Soap and Water Irrigated with Saline -Foul Odor after Cleansing No No -Anesthetic Used 5% Lidocaine 5% Lidocaine Gel Gel Left Calf (cm) 37.5 Left Ankle (cm) 23.2 WC - Nurse 2 - General Ulcer CM Notes Start: 08/02/23 07:57 Freq: Status: Active Protocol: Activity Type Activity Date Activity User E-sign Co-sign Detail Recorded Client Recorded Date Recorded By Document 08/02/23 08:24 Desktop 08/02/23 08:30 Document 08/16/23 08:21 Laptop 08/16/23 08:29 08/02/23 08/16/23 08:24 08:21 Wound Center Nurse 2 #17- L DORSAL FOOT -Time 08:25 08:22 -Correct Patient Yes Yes -Correct Side, Site, Position Yes Yes -Correct Procedure Yes Yes -Procedure Performed Yes Yes -Type of Procedure Debridement Debridement -Clinical Debridement Subcutaneous Subcutaneous -Tissue Removed Subcutaneous Subcutaneous -Post Debridement (cm) - Length 1.5 1.5 -Post Debridement (cm) - Width 0.6 0.5 -Post Debridement (cm) - Depth 0.1 0.1 -Total Square (Post) (cm) 0.90 0.75 -Area of Debridement (cm) - Length 1.5 1.5 -Area of Debridement (cm) - Width 0.6 0.5 -Total Square (Area) (cm) 0.90 0.75 -Tunneling No No -Undermining/Tunneling No No -Circular Undermining No No -Wound/Ulcer Outcome Not Healed Not Healed -Ulcer Cleansing Rinsed/ Rinsed/ Irrigated with Irrigated with Saline Saline -Foul Odor after Cleansing No No -Bioengineered Tissue No No -Bleeding Controlled with Pressure Pressure -Treatment Response Procedure Procedure Tolerated Well Tolerated Well -Offloading No No -Debridement - Subq, 1st 20sq cm Yes Yes #10 Left Medial Ankle -Time 08:25 08:23 -Correct Patient Yes Yes -Correct Side, Site, Position Yes Yes -Correct Procedure Yes Yes -Procedure Performed Yes Yes -Type of Procedure Debridement Debridement -Clinical Debridement Subcutaneous Subcutaneous -Tissue Removed Subcutaneous Subcutaneous -Post Debridement (cm) - Length 3.5 3.5 -Post Debridement (cm) - Width 2.5 2 -Post Debridement (cm) - Depth 0.2 0.2 -Total Square (Post) (cm) 8.75 7.0 -Area of Debridement (cm) - Length 3.5 3.5 -Area of Debridement (cm) - Width 2.5 2.0 -Total Square (Area) (cm) 8.75 7.00 -Tunneling No No -Undermining/Tunneling No No -Circular Undermining No No -Wound/Ulcer Outcome Not Healed Not Healed -Ulcer Cleansing Rinsed/ Rinsed/ Irrigated with Irrigated with Saline Saline -Foul Odor after Cleansing No No -Bioengineered Tissue No No -Bleeding Controlled with Pressure Pressure -Treatment Response Procedure Procedure Tolerated Well Tolerated Well -Offloading No -Debridement - Subq, 1st 20sq cm No No Pain Scale: 0-10 Numeric Is Patient Pain Free? Yes Yes WC - Nurse 3 - General Ulcer D/C NN Start: 08/02/23 07:57 Freq: Status: Active Protocol: Activity Type Activity Date Activity User E-sign Co-sign Detail Recorded Client Recorded Date Recorded By Document 08/16/23 08:33 KW Desktop 08/16/23 08:34 KW 08/16/23 08:33 Wound Care Center Nurse 3 #17- L DORSAL FOOT -Primary Dressing Covered/Secured with Dry Gauze, Secured with Tape #10 Left Medial Ankle -Primary Dressing Covered/Secured with Dry Gauze, Secured with Tape Pain Scale: 0-10 Numeric Is Patient Pain Free? Yes WC - Visit Discharge Discharge Condition Stable Ambulatory Status Ambulatory Transportation Private Auto Medication Reconcilliation completed & No provided to patient/care provider Clinical Summary of Care Provided Yes Additional Wound Wound debrided: Left dorsal foot Type of Debridement: Excisional debridement Anesthesia Used: 5% Lidocaine Gel Depth: Down to and including healthy tissue and in the subcutaneous layer Percentage of wound debrided: 100 Instrument Used: 3mm curette Tissue Removed: Slough and devitalized tissue Severity: Fat Layer Exposed Amount of bleeding with debridement: Mild Bleeding Controlled with: Pressure Patient tolerated procedure: Patient tolerated procedure well Assessment/Plan Assessment/Plan (1) Ulcer of left lower extremity with fat layer exposed: CODE(S): L97.922 - Non-pressure chronic ulcer of unspecified part of left lower leg with fat layer exposed (2) PVD (peripheral vascular disease): CODE(S): I73.9 - Peripheral vascular disease, unspecified (3) Chronic venous insufficiency: CODE(S): I87.2 - Venous insufficiency (chronic) (peripheral) (4) Delayed wound healing: CODE(S): T14.8XXD - Other injury of unspecified body region, subsequent encounter PLAN: Plan Debridement done as documented above, procedure was well-tolerated. Some improvement noted. Continue Aquacel, adaptic and care max to both ulcers. Continue mupirocin ointment as well. Continue use of compression stockings, leg elevation and exercise. Increased protein intake, protein supplements, zinc and vitamin C also recommended. Continue multivitamins. His questions were answered and he was advised to call with any further questions or concerns. Follow-up in 2 weeks. This note was generated with [employer] dictation software. It may contain incorrect words, spelling, and punctuation that were not noted in checking the note before signing.
== END 2023-08-28 23:59 | disposition home or self-care (01) ==
LOC: WC 08:00
PROVIDERS: PCP Family Medicine; Visit Provider Internal Medicine
DX: I73.9 Peripheral vascular disease, unspecified (principal); L97.322 Non-pressure chronic ulcer of left ankle with fat layer exposed; L97.522 Non-pressure chronic ulcer of other part of left foot with fat layer exposed; I87.2 Venous insufficiency (chronic) (peripheral); R60.0 Localized edema
CPT/HCPCS: 11042

== ENCOUNTER 2023-09-27 08:00 | Outpatient (RCR) | payer OTHER, SELFPAY ==
[2023-08-29 00:49] VITALS: BP 157/65; PULSE 84; RESP 16; TEMP 35.5; O2SAT 99; BMI 31.4
[2023-08-30 07:59] VITALS: BP 147/84; PULSE 90; RESP 18; TEMP 36.1; BMI 31.4
--- NOTE | 2023-08-30 09:52 | PN.PCM_ITS ---
History of Present Illness Date of Service: 08/30/23 Chief Complaint: ulcers to the left lower leg History of Wound: This is a 54-year-old male presents to wound healing center with a long-standing history of chronic venous insufficiency, chronic venous hypertension, lower extremity edema, lower extremity pain, and chronic left lower extremity ulcer. 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 He is currently wearing graduated compression stockings which are documented to be 20-30 mmHg compression and these are thigh high. He reports great compliance with use. He is also had previous arterial work-up with no intervention recommended by letter, his vascular surgeon. He denies taking nutritional supplementation. He saw dermatology and had a biopsy of the ulcer site. He also was previously treated by infectious disease for various contaminations and infections. He is not antibiotics at this time nor does he have any redness or odor coming from the wound. He denies fever, chill, nausea, vomiting, loss of appetite. 05/18/22: Mr. Jeronimo presents with a new right lower extremity ulceration. He states that this has been present for months and he has been trying to manage it at home without any significant improvement. Opened up months ago, no known precipitating factor. Has been applying wound dressings without any significant improvement. He reports increased drainage. Denies significant pain. No chills, fever or feeling of unwell. Progress of Wound: No new concerns at this time. He states that he has been doing dressing changes as recommended. Objective Data Objective Data Vital Signs: Vital Signs Temp Pulse Resp BP Pulse Ox 96.9 F L 90 18 147/84 H 99 08/30/23 07:59 08/30/23 07:59 08/30/23 07:59 08/30/23 07:59 08/29/23 00:49 Body Mass Index (BMI) 31.4 Charges/Coding Procedures Integumentary 111xxx-113xx: 15940 Lakeisha subq tissue 20 sq cm/< Debridement Note Debridement Note Wound debrided: Left medial ankle Type of Debridement: Excisional debridement Anesthesia Used: 5% Lidocaine Gel Depth: Down to and including healthy tissue and in the subcutaneous layer Percentage of wound debrided: 100 Instrument Used: 5mm curette Tissue Removed: Slough and devitalized tissue Severity: Fat Layer Exposed Bleeding Controlled with: Pressure Patient tolerated procedure: Patient tolerated procedure well Post-Debridement Measurements and Additional Note: Post-Debridement Measurements/Treatment - Nurse 1 - General Ulcer Assessment Start: 08/30/23 07:58 Freq: Status: Active Protocol: SHANTA Activity Type Activity Date Activity User E-sign Co-sign Detail Recorded Client Recorded Date Recorded By Document 08/30/23 07:59 Laptop 08/30/23 08:05 08/30/23 07:59 - Today's Visit Information Type of service 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-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 Any new allergies or adverse reactions No Had a fall/change in ADL's that may No increase risk of falls Signs or symptoms of abuse and/or No neglect since last visit Have you been in the hospital since your No last visit? Has dressing in place as prescribed Yes Has compression in place as prescribed Yes Has offloadiing in place as prescribed N/A Experienced any changes in pain level or No management Pain Scale: 0-10 Numeric Is Patient Pain Free? Yes [facility] [place] Nurse 1 - General Ulcer Measurement Start: 08/30/23 07:58 Freq: Status: Active Protocol: Activity Type Activity Date Activity User E-sign Co-sign Detail Recorded Client Recorded Date Recorded By Document 08/30/23 07:59 Laptop 08/30/23 08:05 08/30/23 07:59 Wound Center Nurse 1 #17- L DORSAL FOOT -Current Size (cm) - Length 1.2 -Current Size (cm) - Width 0.4 -Current Size (cm) - Depth 0.1 -Total Square Cm 0.48 -Photo Taken Yes -Exudate Amt Medium -Exudate Type Serosanguineous -Wound Margin Thickened -Granulation Amt Medium (34-66%) -Granulation Quality [place],Red -Necrosis Amt Medium (34-66%) -Necrotic Tissue Type Adherent Slough -Structure Exposed N/A -Texture (Ara-wound Skin Appearance) Scarring -Moisture (Ara-wound Skin Appearance) Dry/Scaly -Color (Ara-wound Skin Appearance) Hemosiderin Staining -Temperature (Ara-wound Skin No Abnormality Appearance) (Pt Warm) -Tenderness on Palpation (Ara-wound No Skin Appearance) -Ulcer Cleansing Soap and Water -Foul Odor after Cleansing No -Anesthetic Used 5% Lidocaine Gel #10 Left Medial Ankle -Current Size (cm) - Length 3.6 -Current Size (cm) - Width 1.7 -Current Size (cm) - Depth 0.1 -Total Square Cm 6.12 -Photo Taken Yes -Exudate Amt Medium -Exudate Type Serosanguineous -Wound Margin Thickened -Granulation Amt Medium (34-66%) -Granulation Quality [place],Red -Necrosis Amt Medium (34-66%) -Necrotic Tissue Type Adherent Slough -Structure Exposed N/A -Texture (Ara-wound Skin Appearance) Scarring -Moisture (Ara-wound Skin Appearance) Dry/Scaly -Color (Ara-wound Skin Appearance) Hemosiderin Staining -Tenderness on Palpation (Ara-wound No Skin Appearance) -Ulcer Cleansing Soap and Water -Foul Odor after Cleansing No -Anesthetic Used 5% Lidocaine Gel Left Calf (cm) 35.8 Left Ankle (cm) 23.3 WC - Nurse 2 - General Ulcer CM Notes Start: 08/30/23 07:58 Freq: Status: Active Protocol: Activity Type Activity Date Activity User E-sign Co-sign Detail Recorded Client Recorded Date Recorded By Document 08/30/23 08:23 Desktop 08/30/23 08:29 08/30/23 08:23 Wound Center Nurse 2 #17- L DORSAL FOOT -Time 08:24 -Correct Patient Yes -Correct Side, Site, Position Yes -Correct Procedure Yes -Procedure Performed Yes -Type of Procedure Debridement -Clinical Debridement Subcutaneous -Tissue Removed Subcutaneous -Post Debridement (cm) - Length 1.7 -Post Debridement (cm) - Width 0.3 -Post Debridement (cm) - Depth 0.1 -Total Square (Post) (cm) 0.51 -Area of Debridement (cm) - Length 1.7 -Area of Debridement (cm) - Width 0.3 -Total Square (Area) (cm) 0.51 -Tunneling No -Undermining/Tunneling No -Circular Undermining No -Wound/Ulcer Outcome Not Healed -Ulcer Cleansing Rinsed/ Irrigated with Saline -Foul Odor after Cleansing No -Bioengineered Tissue No -Bleeding Controlled with Pressure -Treatment Response Procedure Tolerated Well -Debridement - Subq, 1st 20sq cm No #10 Left Medial Ankle -Time 08:24 -Correct Patient Yes -Correct Side, Site, Position Yes -Correct Procedure Yes -Procedure Performed Yes -Type of Procedure Debridement -Clinical Debridement Subcutaneous -Tissue Removed Subcutaneous -Post Debridement (cm) - Length 3.8 -Post Debridement (cm) - Width 2.3 -Post Debridement (cm) - Depth 0.2 -Total Square (Post) (cm) 8.74 -Area of Debridement (cm) - Length 3.8 -Area of Debridement (cm) - Width 2.3 -Total Square (Area) (cm) 8.74 -Tunneling No -Undermining/Tunneling No -Circular Undermining No -Wound/Ulcer Outcome Not Healed -Ulcer Cleansing Rinsed/ Irrigated with Saline -Foul Odor after Cleansing No -Bioengineered Tissue No -Bleeding Controlled with Pressure -Treatment Response Procedure Tolerated Well -Debridement - Subq, 1st 20sq cm Yes Pain Scale: 0-10 Numeric Is Patient Pain Free? Yes - Nurse 3 - General Ulcer D/C NN Start: 08/30/23 07:58 Freq: Status: Active Protocol: Activity Type Activity Date Activity User E-sign Co-sign Detail Recorded Client Recorded Date Recorded By Document 08/30/23 08:33 KW Desktop 08/30/23 08:34 KW 08/30/23 08:33 Wound Care Center Nurse 3 #17- L DORSAL FOOT -Primary Dressing Covered/Secured with Dry Gauze, Secured with Tape #10 Left Medial Ankle -Primary Dressing Covered/Secured with Dry Gauze, Secured with Tape Pain Scale: 0-10 Numeric Is Patient Pain Free? Yes WC - Visit Discharge Discharge Condition Stable Ambulatory Status Ambulatory Transportation Private Auto Medication Reconcilliation completed & No provided to patient/care provider Clinical Summary of Care Provided Yes Additional Wound Wound debrided: Left dorsal foot Type of Debridement: Excisional debridement Anesthesia Used: 5% Lidocaine Gel Depth: Down to and including healthy tissue and in the subcutaneous layer Percentage of wound debrided: 100 Instrument Used: 3mm curette Tissue Removed: Slough and devitalized tissue Severity: Fat Layer Exposed Amount of bleeding with debridement: Mild Bleeding Controlled with: Pressure Patient tolerated procedure: Patient tolerated procedure well Assessment/Plan Assessment/Plan (1) Ulcer of left lower extremity with fat layer exposed: CODE(S): L97.922 - Non-pressure chronic ulcer of unspecified part of left lower leg with fat layer exposed (2) PVD (peripheral vascular disease): CODE(S): I73.9 - Peripheral vascular disease, unspecified (3) Chronic venous insufficiency: CODE(S): I87.2 - Venous insufficiency (chronic) (peripheral) (4) Delayed wound healing: CODE(S): T14.8XXD - Other injury of unspecified body region, subsequent encounter PLAN: Plan Debridement done as documented above, procedure was well-tolerated. Some improvement noted. Continue Aquacel, adaptic and care max to both ulcers. Continue mupirocin ointment as well. Continue use of compression stockings, leg elevation and exercise. Increased protein intake, protein supplements, zinc and vitamin C also recommended. Continue multivitamins. His questions were answered and he was advised to call with any further questions or concerns. Follow-up in 2 weeks. This note was generated with [employer] software. It may contain incorrect words, spelling, and punctuation that were not noted in checking the note before signing.
[2023-09-13 08:07] VITALS: BP 147/71; PULSE 92; RESP 18; TEMP 35.9; BMI 31.4
--- NOTE | 2023-09-13 09:14 | PN.PCM_ITS ---
History of Present Illness Date of Service: 09/13/23 Chief Complaint: ulcers to the left lower leg History of Wound: This is a 54-year-old male presents to wound healing center with a long-standing history of chronic venous insufficiency, chronic venous hypertension, lower extremity edema, lower extremity pain, and chronic left lower extremity ulcer. The patient has previously undergone endovenous laser ablation of the left and right great saphenous vein, the small saphenous vein, the left accessory saphenous vein, and an incompetent left calf cardiopulmonary technician vein located 15 cm proximal to the left medial malleolus. He is currently wearing graduated compression stockings which are documented to be 20-30 mmHg compression and these are thigh high. He reports great compliance with use. He is also had previous arterial work-up with no intervention recommended by letter, his vascular surgeon. He denies taking nutritional supplementation. He saw dermatology and had a biopsy of the ulcer site. He also was previously treated by infectious disease for various contaminations and infections. He is not antibiotics at this time nor does he have any redness or odor coming from the wound. He denies fever, chill, nausea, vomiting, loss of appetite. 05/18/22: Mr. Jeronimo presents with a new right lower extremity ulceration. He states that this has been present for months and he has been trying to manage it at home without any significant improvement. Opened up months ago, no known precipitating factor. Has been applying wound dressings without any significant improvement. He reports increased drainage. Denies significant pain. No chills, fever or feeling of unwell. Progress of Wound: Mild maceration noted around the ankle ulcer. He states that he has noted increased drainage lately. Objective Data Objective Data Vital Signs: Vital Signs Temp Pulse Resp BP Pulse Ox 96.6 F L 92 18 147/71 H 99 09/13/23 08:07 09/13/23 08:07 09/13/23 08:07 09/13/23 08:07 08/29/23 00:49 Body Mass Index (BMI) 31.4 Charges/Coding Procedures Integumentary 111xxx-113xx: [id number] Lakeisha subq tissue 20 sq cm/< Physical Exam Const alert, oriented x3 and no apparent distress General Appearance: cooperative and comfortable HEENT normocephalic Head and Scalp: normal to inspection, normocephalic and atraumatic Eyes EOMs intact bilaterally Neck full ROM and supple General: normal visual inspection Resp normal respiratory effort Effort and Inspection: able to speak in complete sentences Extremity normal to inspection General Extremity: edema Skin Wounds: wounds noted Neuro oriented x3 and CN's II-XII intact bilaterally Psych mental status grossly normal Appearance: grossly normal Debridement Note Debridement Note Wound debrided: Left medial ankle Type of Debridement: Excisional debridement Anesthesia Used: 5% Lidocaine Gel Depth: Down to and including healthy tissue and in the subcutaneous layer Percentage of wound debrided: 100 Instrument Used: 5mm curette Tissue Removed: Slough and devitalized tissue Severity: Fat Layer Exposed Bleeding Controlled with: Pressure Patient tolerated procedure: Patient tolerated procedure well Post-Debridement Measurements and Additional Note: Post-Debridement Measurements/Treatment - Nurse 1 - General Ulcer Assessment Start: 08/30/23 07:58 Freq: Status: Active Protocol: SHANTA Activity Type Activity Date Activity User E-sign Co-sign Detail Recorded Client Recorded Date Recorded By Document 08/30/23 07:59 Laptop 08/30/23 08:05 Document 09/13/23 08:07 Desktop 09/13/23 08:13 DL 08/30/23 09/13/23 07:59 08:07 - Today's Visit Information Type of service Follow-up Visit Follow-up Visit (Physician/[employer] (Physician/[employer] ) ) Arrival Mode Ambulatory Ambulatory Transfer Assistance None Patient Identification Verified (Name & Yes Yes ) Patient Requires Transmission-Based No No Precautions Height and Weight Body Mass Index (BMI) 31.4 31.4 BMI Classification Obese Obese Vital Signs Temperature (97.8 F-99.1 F) 96.9 F L 96.6 F L Temperature Source Temporal Temporal Pulse Rate (60-100) 90 92 Pulse Location Monitor Monitor Respiratory Rate (12-18) 18 18 Respiratory rate source Observation Observation Blood Pressure (90/60-120/80) 147/84 H 147/71 H Blood Pressure Mean (mm Hg) 105 96 Source Monitor Monitor History Since Last Visit- (Skip if this is Patient's initial visit) Have you changed medications since your No No last visit? Any new allergies or adverse reactions No No Had a fall/change in ADL's that may No No increase risk of falls Signs or symptoms of abuse and/or No No neglect since last visit Have you been in the hospital since your No No last visit? Has dressing in place as prescribed Yes Yes Has compression in place as prescribed Yes Yes Has offloadiing in place as prescribed N/A N/A Experienced any changes in pain level or No No management Pain Scale: 0-10 Numeric Is Patient Pain Free? Yes Yes WC - Nurse 1 - General Ulcer Measurement Start: 08/30/23 07:58 Freq: Status: Active Protocol: Activity Type Activity Date Activity User E-sign Co-sign Detail Recorded Client Recorded Date Recorded By Document 08/30/23 07:59 JF Laptop 08/30/23 08:05 JF Document 09/13/23 08:07 DL Desktop 09/13/23 08:13 DL 08/30/23 09/13/23 07:59 08:07 Wound Center Nurse 1 #17- L DORSAL FOOT -Current Size (cm) - Length 1.2 1 -Current Size (cm) - Width 0.4 0.4 -Current Size (cm) - Depth 0.1 0.1 -Total Square Cm 0.48 0.4 -Photo Taken Yes -Exudate Amt Medium Small -Exudate Type Serosanguineous Serosanguineous -Wound Margin Thickened Thickened -Granulation Amt Medium (34-66%) Small (1-33%) -Granulation Quality Gordo,Red Gordo -Necrosis Amt Medium (34-66%) Small (1-33%) -Necrotic Tissue Type Adherent Slough Adherent Slough -Structure Exposed N/A N/A -Texture (Ara-wound Skin Appearance) Scarring Scarring -Moisture (Ara-wound Skin Appearance) Dry/Scaly Dry/Scaly -Color (Ara-wound Skin Appearance) Hemosiderin Hemosiderin Staining Staining -Temperature (Ara-wound Skin No Abnormality No Abnormality Appearance) (Pt Warm) (Pt Warm) -Tenderness on Palpation (Ara-wound No No Skin Appearance) -Ulcer Cleansing Soap and Water Soap and Water -Foul Odor after Cleansing No No -Anesthetic Used 5% Lidocaine 5% Lidocaine Gel Gel #10 Left Medial Ankle -Current Size (cm) - Length 3.6 3.8 -Current Size (cm) - Width 1.7 2.2 -Current Size (cm) - Depth 0.1 0.2 -Total Square Cm 6.12 8.36 -Photo Taken Yes -Exudate Amt Medium Medium -Exudate Type Serosanguineous Serosanguineous -Wound Margin Thickened Thickened -Granulation Amt Medium (34-66%) Medium (34-66%) -Granulation Quality Gordo,Red Red -Necrosis Amt Medium (34-66%) None Present (0 %) -Necrotic Tissue Type Adherent Slough Adherent Slough -Structure Exposed N/A N/A -Texture (Ara-wound Skin Appearance) Scarring Scarring -Moisture (Ara-wound Skin Appearance) Dry/Scaly Maceration -Color (Ara-wound Skin Appearance) Hemosiderin Hemosiderin Staining Staining -Temperature (Ara-wound Skin No Abnormality Appearance) (Pt Warm) -Tenderness on Palpation (Ara-wound No No Skin Appearance) -Ulcer Cleansing Soap and Water Soap and Water -Foul Odor after Cleansing No No -Anesthetic Used 5% Lidocaine 5% Lidocaine Gel Gel Left Calf (cm) 35.8 35.5 Left Ankle (cm) 23.3 22.5 WC - Nurse 2 - General Ulcer CM Notes Start: 08/30/23 07:58 Freq: Status: Active Protocol: Activity Type Activity Date Activity User E-sign Co-sign Detail Recorded Client Recorded Date Recorded By Document 08/30/23 08:23 GM Desktop 08/30/23 08:29 GM Document 09/13/23 08:21 Desktop 09/13/23 08:32 08/30/23 09/13/23 08:23 08:21 Wound Center Nurse 2 #17- L DORSAL FOOT -Time 08:24 08:21 -Correct Patient Yes Yes -Correct Side, Site, Position Yes Yes -Correct Procedure Yes Yes -Procedure Performed Yes Yes -Type of Procedure Debridement Debridement -Clinical Debridement Subcutaneous Subcutaneous -Tissue Removed Subcutaneous Subcutaneous -Post Debridement (cm) - Length 1.7 1.5 -Post Debridement (cm) - Width 0.3 1.2 -Post Debridement (cm) - Depth 0.1 0.1 -Total Square (Post) (cm) 0.51 1.80 -Area of Debridement (cm) - Length 1.7 10.5 -Area of Debridement (cm) - Width 0.3 0.2 -Total Square (Area) (cm) 0.51 2.10 -Tunneling No No -Undermining/Tunneling No No -Circular Undermining No No -Wound/Ulcer Outcome Not Healed Not Healed -Ulcer Cleansing Rinsed/ Rinsed/ Irrigated with Irrigated with Saline Saline -Foul Odor after Cleansing No No -Bioengineered Tissue No No -Bleeding Controlled with Pressure Pressure -Treatment Response Procedure Procedure Tolerated Well Tolerated Well -Debridement - Subq, 1st 20sq cm No No #10 Left Medial Ankle -Time 08:24 08:21 -Correct Patient Yes Yes -Correct Side, Site, Position Yes Yes -Correct Procedure Yes Yes -Procedure Performed Yes Yes -Type of Procedure Debridement Debridement -Clinical Debridement Subcutaneous Subcutaneous -Tissue Removed Subcutaneous Subcutaneous -Post Debridement (cm) - Length 3.8 3.5 -Post Debridement (cm) - Width 2.3 2.1 -Post Debridement (cm) - Depth 0.2 0.2 -Total Square (Post) (cm) 8.74 7.35 -Area of Debridement (cm) - Length 3.8 3.5 -Area of Debridement (cm) - Width 2.3 2.1 -Total Square (Area) (cm) 8.74 7.35 -Tunneling No No -Undermining/Tunneling No No -Circular Undermining No No -Wound/Ulcer Outcome Not Healed Not Healed -Ulcer Cleansing Rinsed/ Rinsed/ Irrigated with Irrigated with Saline Saline -Foul Odor after Cleansing No No -Bioengineered Tissue No No -Bleeding Controlled with Pressure Pressure -Treatment Response Procedure Procedure Tolerated Well Tolerated Well -Debridement - Subq, 1st 20sq cm Yes Yes Pain Scale: 0-10 Numeric Is Patient Pain Free? Yes Yes WC - Nurse 3 - General Ulcer D/C NN Start: 08/30/23 07:58 Freq: Status: Active Protocol: Activity Type Activity Date Activity User E-sign Co-sign Detail Recorded Client Recorded Date Recorded By Document 08/30/23 08:33 KW Desktop 08/30/23 08:34 KW Document 09/13/23 08:34 DL Desktop 09/13/23 08:36 DL 08/30/23 09/13/23 08:33 08:34 Wound Care Center Nurse 3 #17- L DORSAL FOOT -Ulcer Cleansing Rinsed/ Irrigated with Saline -Foul Odor after Cleansing No -Primary Dressing Covered/Secured with Dry Gauze, Dry Gauze & Secured with Roll Gauze, Tape Secured with Tape #10 Left Medial Ankle -Ulcer Cleansing Rinsed/ Irrigated with Saline -Foul Odor after Cleansing No -Primary Dressing Covered/Secured with Dry Gauze, Dry Gauze & Secured with Roll Gauze, Tape Secured with Tape Treatment Response Procedure Tolerated Well Pain Scale: 0-10 Numeric Is Patient Pain Free? Yes Yes WC - Visit Discharge Discharge Condition Stable Stable Ambulatory Status Ambulatory Ambulatory Transportation Private Auto Private Auto Medication Reconcilliation completed & No provided to patient/care provider Clinical Summary of Care Provided Yes Notes: Pt to resume bactroban, adaptic,aquacel at home. Additional Wound Wound debrided: Left dorsal foot Type of Debridement: Excisional debridement Anesthesia Used: 5% Lidocaine Gel Depth: Down to and including healthy tissue and in the subcutaneous layer Percentage of wound debrided: 100 Instrument Used: 3mm curette Tissue Removed: Slough and devitalized tissue Severity: Fat Layer Exposed Amount of bleeding with debridement: Mild Bleeding Controlled with: Pressure Patient tolerated procedure: Patient tolerated procedure well Assessment/Plan Assessment/Plan (1) Ulcer of left lower extremity with fat layer exposed: CODE(S): L97.922 - Non-pressure chronic ulcer of unspecified part of left lower leg with fat layer exposed (2) PVD (peripheral vascular disease): CODE(S): I73.9 - Peripheral vascular disease, unspecified (3) Chronic venous insufficiency: CODE(S): I87.2 - Venous insufficiency (chronic) (peripheral) (4) Delayed wound healing: CODE(S): T14.8XXD - Other injury of unspecified body region, subsequent encounter PLAN: Plan Debridement done as documented above, procedure was well-tolerated. Maceration noted but overall stable also. He also reports increased drainage. Cultures taken. Continue Aquacel, adaptic and care max to both ulcers. He was advised that he could change it more than once if he notes increased drainage. Continue mupirocin ointment as well. Continue use of compression stockings, leg elevation and exercise. Increased protein intake, protein supplements, zinc and vitamin C also recommended. Continue multivitamins. His questions were answered and he was advised to call with any further questions or concerns. Follow-up in 2 weeks. This note was generated with [employer] dictation software. It may contain incorrect words, spelling, and punctuation that were not noted in checking the note before signing.
[2023-09-27 07:57] VITALS: BP 156/73; PULSE 97; RESP 16; TEMP 35.8; BMI 31.4
--- NOTE | 2023-09-27 09:33 | PN.PCM_ITS ---
History of Present Illness Date of Service: 09/27/23 Chief Complaint: ulcers to the left lower leg History of Wound: This is a 54-year-old male presents to wound healing center with a long-standing history of chronic venous insufficiency, chronic venous hypertension, lower extremity edema, lower extremity pain, and chronic left lower extremity ulcer. The patient has previously undergone endovenous laser ablation of the left and right great saphenous vein, the small saphenous vein, the left accessory saphenous vein, and an incompetent left calf plaster foreman vein located 15 cm proximal to the left medial malleolus. He is currently wearing graduated compression stockings which are documented to be 20-30 mmHg compression and these are thigh high. He reports great compliance with use. He is also had previous arterial work-up with no intervention recommended by letter, his vascular surgeon. He denies taking nutritional supplementation. He saw dermatology and had a biopsy of the ulcer site. He also was previously treated by infectious disease for various contaminations and infections. He is not antibiotics at this time nor does he have any redness or odor coming from the wound. He denies fever, chill, nausea, vomiting, loss of appetite. 05/18/22: Mr. Jeronimo presents with a new right lower extremity ulceration. He states that this has been present for months and he has been trying to manage it at home without any significant improvement. Opened up months ago, no known precipitating factor. Has been applying wound dressings without any significant improvement. He reports increased drainage. Denies significant pain. No chills, fever or feeling of unwell. Progress of Wound: Slight improvement. No new concerns at this time. Objective Data Objective Data Vital Signs: Vital Signs Temp Pulse Resp BP Pulse Ox 96.5 F L 97 16 156/73 H 99 09/27/23 07:57 09/27/23 07:57 09/27/23 07:57 09/27/23 07:57 08/29/23 00:49 Body Mass Index (BMI) 31.4 Lab / Micro Data Micro: Microbiology 09/13/23 08:37 Wound - Left Foot Gram Stain - Final 09/13/23 08:37 Wound - Left Foot Wound Culture - Final Staphylococcus epidermidis Escherichia coli Pseudomonas aeruginosa Corynebacterium jeikeium 09/13/23 08:37 Wound - Left Foot Anaerobic Culture - Final Anaerobic cocci Charges/Coding Procedures Integumentary [id number]: [id number] [place] subq tissue 20 sq cm/< Physical Exam Const alert, oriented x3 and no apparent distress General Appearance: cooperative and comfortable HEENT normocephalic Head and Scalp: normal to inspection, normocephalic and atraumatic Eyes EOMs intact bilaterally Neck full ROM and supple General: normal visual inspection Resp normal respiratory effort Effort and Inspection: able to speak in complete sentences Extremity normal to inspection General Extremity: edema Skin Wounds: wounds noted Neuro oriented x3 and CN's II-XII intact bilaterally Psych mental status grossly normal Appearance: grossly normal Debridement Note Debridement Note Wound debrided: Left medial ankle Type of Debridement: Excisional debridement Anesthesia Used: 5% Lidocaine Gel Depth: Down to and including healthy tissue and in the subcutaneous layer Percentage of wound debrided: 100 Instrument Used: 5mm curette Tissue Removed: Slough and devitalized tissue Severity: Fat Layer Exposed Bleeding Controlled with: Pressure Patient tolerated procedure: Patient tolerated procedure well Post-Debridement Measurements and Additional Note: Post-Debridement Measurements/Treatment - Nurse 1 - General Ulcer Assessment Start: 08/30/23 07:58 Freq: Status: Active Protocol: .MEHDI Activity Type Activity Date Activity User E-sign Co-sign Detail Recorded Client Recorded Date Recorded By Document 08/30/23 07:59 Laptop 08/30/23 08:05 Document 09/13/23 08:07 DL Desktop 09/13/23 08:13 DL Document 09/27/23 07:57 Laptop 09/27/23 07:59 08/30/23 09/13/23 09/27/23 07:59 08:07 07:57 - Today's Visit Information Type of service Follow-up Visit Follow-up Visit Follow-up Visit (Physician/GUEST SPECIALIST (Physician/GUEST SPECIALIST (Physician/GUEST SPECIALIST ) ) ) Arrival Mode Ambulatory Ambulatory Ambulatory Transfer Assistance None Patient Identification Verified (Name & Yes Yes Yes ) Patient Requires Transmission-Based No No No Precautions Height and Weight Body Mass Index (BMI) 31.4 31.4 31.4 BMI Classification Obese Obese Obese Vital Signs Temperature (97.8 F-99.1 F) 96.9 F L 96.6 F L 96.5 F L Temperature Source Temporal Temporal Temporal Pulse Rate (60-100) 90 92 97 Pulse Location Monitor Monitor Monitor Respiratory Rate (12-18) 18 18 16 Respiratory rate source Observation Observation Observation Blood Pressure (90/60-120/80) 147/84 H 147/71 H 156/73 H Blood Pressure Mean (mm Hg) 105 96 100 Source Monitor Monitor Monitor Position Semi-Fowlers Blood Pressure Location Left Arm History Since Last Visit- (Skip if this is Patient's initial visit) Have you changed medications since your No No No last visit? Any new allergies or adverse reactions No No No Had a fall/change in ADL's that may No No No increase risk of falls Signs or symptoms of abuse and/or No No No neglect since last visit Have you been in the hospital since your No No No last visit? Has dressing in place as prescribed Yes Yes Yes Has compression in place as prescribed Yes Yes Yes Has offloadiing in place as prescribed N/A N/A N/A Experienced any changes in pain level or No No No management Left Footwear Regular Shoe Right Footwear Regular Shoe Pain Scale: 0-10 Numeric Is Patient Pain Free? Yes Yes Yes - Nurse 1 - General Ulcer Measurement Start: 08/30/23 07:58 Freq: Status: Active Protocol: Activity Type Activity Date Activity User E-sign Co-sign Detail Recorded Client Recorded Date Recorded By Document 08/30/23 07:59 Laptop 08/30/23 08:05 Document 09/13/23 08:07 Desktop 09/13/23 08:13 DL Document 09/27/23 07:57 Laptop 09/27/23 07:59 08/30/23 09/13/23 09/27/23 07:59 08:07 07:57 Wound Center Nurse 1 #17- L DORSAL FOOT -Combined with other wound No -Current Size (cm) - Length 1.2 1 1.2 -Current Size (cm) - Width 0.4 0.4 0.3 -Current Size (cm) - Depth 0.1 0.1 0.2 -Total Square Cm 0.48 0.4 0.36 -Photo Taken Yes No -Epithelialization None Present -Tunneling No -Undermining/Tunneling No -Circular Undermining No -Exudate Amt Medium Small Medium -Exudate Type Serosanguineous Serosanguineous Serosanguineous -Wound Margin Thickened Thickened Flat & Intact -Granulation Amt Medium (34-66%) Small (1-33%) Medium (34-66%) -Granulation Quality [place],Red [place] Red -Slough/Fibrin Yes -Necrosis Amt Medium (34-66%) Small (1-33%) Medium (34-66%) -Necrotic Tissue Type Adherent Slough Adherent Slough Adherent Slough -Structure Exposed N/A N/A N/A -Texture (Ara-wound Skin Appearance) Scarring Scarring Assessed, Localized Edema -Moisture (Ara-wound Skin Appearance) Dry/Scaly Dry/Scaly Assessed -Color (Ara-wound Skin Appearance) Hemosiderin Hemosiderin Assessed Staining Staining -Temperature (Ara-wound Skin No Abnormality No Abnormality No Abnormality Appearance) (Pt Warm) (Pt Warm) (Pt Warm) -Tenderness on Palpation (Ara-wound No No No Skin Appearance) -Ulcer Cleansing Soap and Water Soap and Water Wound Cleanser -Foul Odor after Cleansing No No No -Anesthetic Used 5% Lidocaine 5% Lidocaine 5% Lidocaine Gel Gel Gel #10 Left Medial Ankle -Combined with other wound No -Current Size (cm) - Length 3.6 3.8 3.4 -Current Size (cm) - Width 1.7 2.2 1.9 -Current Size (cm) - Depth 0.1 0.2 0.2 -Total Square Cm 6.12 8.36 6.46 -Photo Taken Yes No -Epithelialization None Present -Tunneling No -Undermining/Tunneling No -Circular Undermining No -Exudate Amt Medium Medium Small -Exudate Type Serosanguineous Serosanguineous Serosanguineous -Wound Margin Thickened Thickened Flat & Intact -Granulation Amt Medium (34-66%) Medium (34-66%) Medium (34-66%) -Granulation Quality [place],Red Red Red -Slough/Fibrin Yes -Necrosis Amt Medium (34-66%) None Present (0 Small (1-33%) %) -Necrotic Tissue Type Adherent Slough Adherent Slough Adherent Slough -Structure Exposed N/A N/A N/A -Texture (Ara-wound Skin Appearance) Scarring Scarring Assessed, Localized Edema -Moisture (Ara-wound Skin Appearance) Dry/Scaly Maceration Assessed,Dry/ Scaly -Color (Ara-wound Skin Appearance) Hemosiderin Hemosiderin Assessed Staining Staining -Temperature (Ara-wound Skin No Abnormality No Abnormality Appearance) (Pt Warm) (Pt Warm) -Tenderness on Palpation (Ara-wound No No No Skin Appearance) -Ulcer Cleansing Soap and Water Soap and Water Wound Cleanser -Foul Odor after Cleansing No No No -Anesthetic Used 5% Lidocaine 5% Lidocaine 5% Lidocaine Gel Gel Gel Lower Limb Edema Present Yes Left Calf (cm) 35.8 35.5 35.6 Left Ankle (cm) 23.3 22.5 22.4 WC - Nurse 2 - General Ulcer CM Notes Start: 08/30/23 07:58 Freq: Status: Active Protocol: Activity Type Activity Date Activity User E-sign Co-sign Detail Recorded Client Recorded Date Recorded By Document 08/30/23 08:23 GM Desktop 08/30/23 08:29 GM Document 09/13/23 08:21 GM Desktop 09/13/23 08:32 GM Document 09/27/23 08:20 GM Desktop 09/27/23 08:27 GM 08/30/23 09/13/23 09/27/23 08:23 08:21 08:20 Wound Center Nurse 2 #17- L DORSAL FOOT -Time 08:24 08:21 08:20 -Correct Patient Yes Yes Yes -Correct Side, Site, Position Yes Yes Yes -Correct Procedure Yes Yes Yes -Procedure Performed Yes Yes Yes -Type of Procedure Debridement Debridement Debridement -Clinical Debridement Subcutaneous Subcutaneous Subcutaneous -Tissue Removed Subcutaneous Subcutaneous Subcutaneous -Post Debridement (cm) - Length 1.7 1.5 1.3 -Post Debridement (cm) - Width 0.3 1.2 0.2 -Post Debridement (cm) - Depth 0.1 0.1 0.1 -Total Square (Post) (cm) 0.51 1.80 0.26 -Area of Debridement (cm) - Length 1.7 10.5 1.3 -Area of Debridement (cm) - Width 0.3 0.2 0.2 -Total Square (Area) (cm) 0.51 2.10 0.26 -Tunneling No No No -Undermining/Tunneling No No No -Circular Undermining No No No -Wound/Ulcer Outcome Not Healed Not Healed Not Healed -Ulcer Cleansing Rinsed/ Rinsed/ Rinsed/ Irrigated with Irrigated with Irrigated with Saline Saline Saline -Foul Odor after Cleansing No No No -Bioengineered Tissue No No No -Bleeding Controlled with Pressure Pressure Pressure -Treatment Response Procedure Procedure Procedure Tolerated Well Tolerated Well Tolerated Well -Debridement - Subq, 1st 20sq cm No No No #10 Left Medial Ankle -Time 08:24 08:21 08:20 -Correct Patient Yes Yes Yes -Correct Side, Site, Position Yes Yes Yes -Correct Procedure Yes Yes Yes -Procedure Performed Yes Yes Yes -Type of Procedure Debridement Debridement Debridement -Clinical Debridement Subcutaneous Subcutaneous Subcutaneous -Tissue Removed Subcutaneous Subcutaneous Subcutaneous -Post Debridement (cm) - Length 3.8 3.5 3.5 -Post Debridement (cm) - Width 2.3 2.1 1.9 -Post Debridement (cm) - Depth 0.2 0.2 0.2 -Total Square (Post) (cm) 8.74 7.35 6.65 -Area of Debridement (cm) - Length 3.8 3.5 3.5 -Area of Debridement (cm) - Width 2.3 2.1 1.9 -Total Square (Area) (cm) 8.74 7.35 6.65 -Tunneling No No No -Undermining/Tunneling No No No -Circular Undermining No No No -Wound/Ulcer Outcome Not Healed Not Healed Not Healed -Ulcer Cleansing Rinsed/ Rinsed/ Rinsed/ Irrigated with Irrigated with Irrigated with Saline Saline Saline -Foul Odor after Cleansing No No No -Bioengineered Tissue No No No -Bleeding Controlled with Pressure Pressure Pressure -Treatment Response Procedure Procedure Procedure Tolerated Well Tolerated Well Tolerated Well -Debridement - Subq, 1st 20sq cm Yes Yes Yes Pain Scale: 0-10 Numeric Is Patient Pain Free? Yes Yes Yes - Nurse 3 - General Ulcer D/C NN Start: 08/30/23 07:58 Freq: Status: Active Protocol: Activity Type Activity Date Activity User E-sign Co-sign Detail Recorded Client Recorded Date Recorded By Document 08/30/23 08:33 KW Desktop 08/30/23 08:34 KW Document 09/13/23 08:34 DL Desktop 09/13/23 08:36 DL Document 09/27/23 08:32 JF Laptop 09/27/23 08:33 JF 08/30/23 09/13/23 09/27/23 08:33 08:34 08:32 Wound Care Center Nurse 3 #17- L DORSAL FOOT -Ulcer Cleansing Rinsed/ Rinsed/ Irrigated with Irrigated with Saline Saline -Foul Odor after Cleansing No -Primary Dressing Applied Hysept ($) -Primary Dressing Covered/Secured with Dry Gauze, Dry Gauze & Dry Gauze Secured with Roll Gauze, Tape Secured with Tape #10 Left Medial Ankle -Ulcer Cleansing Rinsed/ Rinsed/ Irrigated with Irrigated with Saline Saline -Foul Odor after Cleansing No No -Primary Dressing Covered/Secured with Dry Gauze, Dry Gauze & Dry Gauze Secured with Roll Gauze, Tape Secured with Tape Treatment Response Procedure Tolerated Well Pain Scale: 0-10 Numeric Is Patient Pain Free? Yes Yes Yes WC - Visit Discharge Discharge Condition Stable Stable Stable Ambulatory Status Ambulatory Ambulatory Ambulatory Transportation Private Auto Private Auto Private Auto Medication Reconcilliation completed & No Yes provided to patient/care provider Clinical Summary of Care Provided Yes Yes Notes: Pt to resume No dressings bactroban, done today adaptic,aquacel since patient at home. will be heading home to shower since he works nights. Discussed how to do dressing and patient verbalized understanding. Additional Wound Wound debrided: Left dorsal foot Type of Debridement: Excisional debridement Anesthesia Used: 5% Lidocaine Gel Depth: Down to and including healthy tissue and in the subcutaneous layer Percentage of wound debrided: 100 Instrument Used: 3mm curette Tissue Removed: Slough and devitalized tissue Severity: Fat Layer Exposed Amount of bleeding with debridement: Mild Bleeding Controlled with: Pressure Patient tolerated procedure: Patient tolerated procedure well Assessment/Plan Assessment/Plan (1) Ulcer of left lower extremity with fat layer exposed: CODE(S): L97.922 - Non-pressure chronic ulcer of unspecified part of left lower leg with fat layer exposed (2) PVD (peripheral vascular disease): CODE(S): I73.9 - Peripheral vascular disease, unspecified (3) Chronic venous insufficiency: CODE(S): I87.2 - Venous insufficiency (chronic) (peripheral) (4) Delayed wound healing: CODE(S): T14.8XXD - Other injury of unspecified body region, subsequent encounter PLAN: Plan Debridement done as documented above, procedure was well-tolerated. Slight improvement in the last 2 weeks. No maceration appreciated today and he does not report any significant drainage. Cultures from last visit with minimal growth. 10 minutes Dakins soak daily. Continue Aquacel, adaptic and care max to both ulcers. He was advised that he could change it more than once if he notes increased drainage. Continue mupirocin ointment as well. Continue use of compression stockings, leg elevation and exercise. Increased protein intake, protein supplements, zinc and vitamin C also recommended. Continue multivitamins. His questions were answered and he was advised to call with any further questions or concerns. Follow-up in 2 weeks. This note was generated with [employer] dictation software. It may contain incorrect words, spelling, and punctuation that were not noted in checking the note before signing.
== END 2023-09-27 23:59 | disposition home or self-care (01) ==
LOC: WC 08:00
PROVIDERS: PCP Family Medicine; Visit Provider Internal Medicine
DX: I73.9 Peripheral vascular disease, unspecified (principal); L97.322 Non-pressure chronic ulcer of left ankle with fat layer exposed; L97.522 Non-pressure chronic ulcer of other part of left foot with fat layer exposed; I87.2 Venous insufficiency (chronic) (peripheral); R60.0 Localized edema
CPT/HCPCS: 11042; 87070; 87075; 87077; 87186; 87205

== ENCOUNTER 2023-10-25 08:00 | Outpatient (RCR) | payer OTHER, SELFPAY ==
[2023-09-28 00:48] VITALS: BP 156/73; PULSE 97; RESP 16; TEMP 35.8; O2SAT 99; BMI 31.4
[2023-10-11 08:06] VITALS: BP 153/77; PULSE 88; RESP 20; TEMP 35.8; BMI 31.4
--- NOTE | 2023-10-11 08:30 | PN.PCM_ITS ---
History of Present Illness Date of Service: 10/11/23 Chief Complaint: ulcers to the left lower leg History of Wound: This is a 54-year-old male presents to wound healing center with a long-standing history of chronic venous insufficiency, chronic venous hypertension, lower extremity edema, lower extremity pain, and chronic left lower extremity ulcer. The patient has previously undergone endovenous laser ablation of the left and right great saphenous vein, the small saphenous vein, the left accessory saphenous vein, and an incompetent left calf mandolin repair person vein located 15 cm proximal to the left medial malleolus. He is currently wearing graduated compression stockings which are documented to be 20-30 mmHg compression and these are thigh high. He reports great compliance with use. He is also had previous arterial work-up with no intervention recommended by letter, his vascular surgeon. He denies taking nutritional supplementation. He saw dermatology and had a biopsy of the ulcer site. He also was previously treated by infectious disease for various contaminations and infections. He is not antibiotics at this time nor does he have any redness or odor coming from the wound. He denies fever, chill, nausea, vomiting, loss of appetite. 05/18/22: Mr. Jeronimo presents with a new right lower extremity ulceration. He states that this has been present for months and he has been trying to manage it at home without any significant improvement. Opened up months ago, no known precipitating factor. Has been applying wound dressings without any significant improvement. He reports increased drainage. Denies significant pain. No chills, fever or feeling of unwell. Progress of Wound: Overall stable/improving. No new concerns reported at this time. Objective Data Objective Data Vital Signs: Vital Signs Temp Pulse Resp BP Pulse Ox 96.4 F L 88 20 H 153/77 H 99 10/11/23 08:06 10/11/23 08:06 10/11/23 08:06 10/11/23 08:06 09/28/23 00:48 Body Mass Index (BMI) 31.4 Charges/Coding Procedures Integumentary 111xxx-113xx: 75985 Lakeisha subq tissue 20 sq cm/< Physical Exam Const alert, oriented x3 and no apparent distress General Appearance: cooperative and comfortable HEENT normocephalic Head and Scalp: normal to inspection, normocephalic and atraumatic Eyes EOMs intact bilaterally Neck full ROM and supple General: normal visual inspection Resp normal respiratory effort Effort and Inspection: able to speak in complete sentences Extremity normal to inspection General Extremity: edema Skin Wounds: wounds noted Neuro oriented x3 and CN's II-XII intact bilaterally Psych mental status grossly normal Appearance: grossly normal Debridement Note Debridement Note Wound debrided: Left medial ankle Type of Debridement: Excisional debridement Anesthesia Used: 5% Lidocaine Gel Depth: Down to and including healthy tissue and in the subcutaneous layer Percentage of wound debrided: 100 Instrument Used: 5mm curette Tissue Removed: Slough and devitalized tissue Severity: Fat Layer Exposed Bleeding Controlled with: Pressure Patient tolerated procedure: Patient tolerated procedure well Post-Debridement Measurements and Additional Note: Post-Debridement Measurements/Treatment WC - Nurse 1 - General Ulcer Assessment Start: 10/11/23 08:06 Freq: Status: Active Protocol: SHANTA Activity Type Activity Date Activity User E-sign Co-sign Detail Recorded Client Recorded Date Recorded By Document 10/11/23 08:06 TIFFANY Desktop 10/11/23 08:09 DL 10/11/23 08:06 KIMBERLY - Today's Visit Information Type of service Follow-up Visit (Physician/BUSINESS SYSTEMS MANAGER ) Arrival Mode Ambulatory Transfer Assistance None Patient Identification Verified (Name & Yes ) Patient Requires Transmission-Based No Precautions Height and Weight Body Mass Index (BMI) 31.4 BMI Classification Obese Vital Signs Temperature (97.8 F-99.1 F) 96.4 F L Temperature Source Temporal Pulse Rate (60-100) 88 Pulse Location Monitor Respiratory Rate (12-18) 20 H Respiratory rate source Observation Blood Pressure (90/60-120/80) 153/77 H Blood Pressure Mean (mm Hg) 102 Source Monitor History Since Last Visit- (Skip if this is Patient's initial visit) Have you changed medications since your No last visit? Any new allergies or adverse reactions No Had a fall/change in ADL's that may No increase risk of falls Signs or symptoms of abuse and/or No neglect since last visit Have you been in the hospital since your No last visit? Has dressing in place as prescribed Yes Has compression in place as prescribed Yes Has offloadiing in place as prescribed N/A Experienced any changes in pain level or No management Pain Scale: 0-10 Numeric Is Patient Pain Free? Yes - Nurse 1 - General Ulcer Measurement Start: 12/14/23 08:06 Freq: Status: Active Protocol: Activity Type Activity Date Activity User E-sign Co-sign Detail Recorded Client Recorded Date Recorded By Document 10/11/23 08:06 DL Desktop 10/11/23 08:09 DL 10/11/23 08:06 Wound Center Nurse 1 #17- L DORSAL FOOT -Current Size (cm) - Length 0.1 -Current Size (cm) - Width 0.1 -Current Size (cm) - Depth 0.1 -Total Square Cm 0.01 -Photo Taken Yes -Exudate Amt None Present -Wound Margin Flat & Intact -Granulation Amt Medium (34-66%) -Granulation Quality Pale -Necrosis Amt Medium (34-66%) -Necrotic Tissue Type Adherent Slough -Structure Exposed N/A -Texture (Ara-wound Skin Appearance) Scarring -Moisture (Ara-wound Skin Appearance) Dry/Scaly -Color (Ara-wound Skin Appearance) Hemosiderin Staining -Temperature (Ara-wound Skin No Abnormality Appearance) (Pt Warm) -Tenderness on Palpation (Ara-wound No Skin Appearance) -Ulcer Cleansing Soap and Water -Foul Odor after Cleansing No -Anesthetic Used 5% Lidocaine Gel #10 Left Medial Ankle -Current Size (cm) - Length 3.3 -Current Size (cm) - Width 1.5 -Current Size (cm) - Depth 0.2 -Total Square Cm 4.95 -Photo Taken Yes -Exudate Amt Medium -Exudate Type Serosanguineous -Wound Margin Thickened -Granulation Amt Medium (34-66%) -Granulation Quality [place] -Necrosis Amt Medium (34-66%) -Necrotic Tissue Type Adherent Slough -Structure Exposed N/A -Texture (Ara-wound Skin Appearance) Scarring -Moisture (Ara-wound Skin Appearance) Dry/Scaly -Color (Ara-wound Skin Appearance) Hemosiderin Staining -Temperature (Ara-wound Skin No Abnormality Appearance) (Pt Warm) -Tenderness on Palpation (Ara-wound No Skin Appearance) -Ulcer Cleansing Soap and Water -Foul Odor after Cleansing No -Anesthetic Used 5% Lidocaine Gel Left Calf (cm) 36 Left Ankle (cm) 22.7 WC - Nurse 2 - General Ulcer CM Notes Start: 10/11/23 08:06 Freq: Status: Active Protocol: Activity Type Activity Date Activity User E-sign Co-sign Detail Recorded Client Recorded Date Recorded By Document 10/11/23 08:21 Laptop 10/11/23 08:26 10/11/23 08:21 Wound Center Nurse 2 #17- L DORSAL FOOT -Time 08:22 -Correct Patient Yes -Correct Side, Site, Position Yes -Correct Procedure Yes -Procedure Performed Yes -Type of Procedure Debridement -Clinical Debridement Subcutaneous -Tissue Removed Subcutaneous -Post Debridement (cm) - Length 0.2 -Post Debridement (cm) - Width 1.2 -Post Debridement (cm) - Depth 0.1 -Total Square (Post) (cm) 0.24 -Area of Debridement (cm) - Length 0.2 -Area of Debridement (cm) - Width 1.2 -Total Square (Area) (cm) 0.24 -Tunneling No -Undermining/Tunneling No -Circular Undermining No -Wound/Ulcer Outcome Not Healed -Ulcer Cleansing Rinsed/ Irrigated with Saline -Foul Odor after Cleansing No -Bioengineered Tissue No -Bleeding Controlled with Pressure -Treatment Response Procedure Tolerated Well -Offloading No -Debridement - Subq, 1st 20sq cm No #10 Left Medial Ankle -Time 08:22 -Correct Patient Yes -Correct Side, Site, Position Yes -Correct Procedure Yes -Procedure Performed Yes -Type of Procedure Debridement -Clinical Debridement Subcutaneous -Tissue Removed Subcutaneous -Post Debridement (cm) - Length 3.9 -Post Debridement (cm) - Width 2 -Post Debridement (cm) - Depth 0.2 -Total Square (Post) (cm) 7.8 -Area of Debridement (cm) - Length 3.9 -Area of Debridement (cm) - Width 2 -Total Square (Area) (cm) 7.8 -Tunneling No -Undermining/Tunneling No -Circular Undermining No -Wound/Ulcer Outcome Not Healed -Ulcer Cleansing Rinsed/ Irrigated with Saline -Foul Odor after Cleansing No -Bioengineered Tissue No -Bleeding Controlled with Pressure -Treatment Response Procedure Tolerated Well -Offloading No -Debridement - Subq, 1st 20sq cm Yes Pain Scale: 0-10 Numeric Is Patient Pain Free? Yes Additional Wound Wound debrided: Left dorsal foot Type of Debridement: Excisional debridement Anesthesia Used: 5% Lidocaine Gel Depth: Down to and including healthy tissue and in the subcutaneous layer Percentage of wound debrided: 100 Instrument Used: 3mm curette Tissue Removed: Slough and devitalized tissue Severity: Fat Layer Exposed Amount of bleeding with debridement: Mild Bleeding Controlled with: Pressure Patient tolerated procedure: Patient tolerated procedure well Assessment/Plan Assessment/Plan (1) Ulcer of left lower extremity with fat layer exposed: CODE(S): L97.922 - Non-pressure chronic ulcer of unspecified part of left lower leg with fat layer exposed (2) PVD (peripheral vascular disease): CODE(S): I73.9 - Peripheral vascular disease, unspecified (3) Chronic venous insufficiency: CODE(S): I87.2 - Venous insufficiency (chronic) (peripheral) (4) Delayed wound healing: CODE(S): T14.8XXD - Other injury of unspecified body region, subsequent encounter PLAN: Plan Debridement done as documented above, procedure was well-tolerated. No new concerns. Some improvement noted. Continue 10 minutes Dakins soak daily. Continue Aquacel, adaptic and care max to both ulcers. He was advised that he could change it more than once if he notes increased drainage. Continue mupirocin ointment as well. Continue use of compression stockings, leg elevation and exercise. Increased protein intake, protein supplements, zinc and vitamin C also recommended. Continue multivitamins. His questions were answered and he was advised to call with any further questions or concerns. Follow-up in 2 weeks. This note was generated with [employer] dictation software. It may contain incorrect words, spelling, and punctuation that were not noted in checking the note before signing.
[2023-10-25 08:00] VITALS: BP 176/90; PULSE 96; RESP 18; TEMP 35.9; BMI 31.4
--- NOTE | 2023-10-25 09:25 | PCM.WC.PN ---
History of Present Illness Date of Service: 10/25/23 Chief Complaint: ulcers to the left lower leg History of Wound: This is a 54-year-old male presents to wound healing center with a long-standing history of chronic venous insufficiency, chronic venous hypertension, lower extremity edema, lower extremity pain, and chronic left lower extremity ulcer. The patient has previously undergone endovenous laser ablation of the left and right great saphenous vein, the small saphenous vein, the left accessory saphenous vein, and an incompetent left calf rehabilitation therapy technician vein located 15 cm proximal to the left medial malleolus. He is currently wearing graduated compression stockings which are documented to be 20-30 mmHg compression and these are thigh high. He reports great compliance with use. He is also had previous arterial work-up with no intervention recommended by letter, his vascular surgeon. He denies taking nutritional supplementation. He saw dermatology and had a biopsy of the ulcer site. He also was previously treated by infectious disease for various contaminations and infections. He is not antibiotics at this time nor does he have any redness or odor coming from the wound. He denies fever, chill, nausea, vomiting, loss of appetite. 05/18/22: Mr. Jeronimo presents with a new right lower extremity ulceration. He states that this has been present for months and he has been trying to manage it at home without any significant improvement. Opened up months ago, no known precipitating factor. Has been applying wound dressings without any significant improvement. He reports increased drainage. Denies significant pain. No chills, fever or feeling of unwell. Progress of Wound: No new concerns or significant changes at this time. Objective Data Objective Data Vital Signs: Vital Signs Temp Pulse Resp BP Pulse Ox 96.7 F L 96 18 176/90 H 99 10/25/23 08:00 10/25/23 08:00 10/25/23 08:00 10/25/23 08:00 09/28/23 00:48 Body Mass Index (BMI) 31.4 Charges/Coding Procedures Integumentary 111xxx-113xx: 37095 Lakeisha subq tissue 20 sq cm/< Physical Exam Const alert, oriented x3 and no apparent distress General Appearance: cooperative and comfortable HEENT normocephalic Head and Scalp: normal to inspection, normocephalic and atraumatic Eyes EOMs intact bilaterally Neck full ROM and supple General: normal visual inspection Resp normal respiratory effort Effort and Inspection: able to speak in complete sentences Extremity normal to inspection General Extremity: edema Skin Wounds: wounds noted Neuro oriented x3 and CN's II-XII intact bilaterally Psych mental status grossly normal Appearance: grossly normal Debridement Note Debridement Note Wound debrided: Left medial ankle Type of Debridement: Excisional debridement Anesthesia Used: 5% Lidocaine Gel Depth: Down to and including healthy tissue and in the subcutaneous layer Percentage of wound debrided: 100 Instrument Used: 5mm curette Tissue Removed: Slough and devitalized tissue Severity: Fat Layer Exposed Bleeding Controlled with: Pressure Patient tolerated procedure: Patient tolerated procedure well Post-Debridement Measurements and Additional Note: Post-Debridement Measurements/Treatment - Nurse 1 - General Ulcer Assessment Start: 10/11/23 08:06 Freq: Status: Active Protocol: SHANTA Activity Type Activity Date Activity User E-sign Co-sign Detail Recorded Client Recorded Date Recorded By Document 10/11/23 08:06 DL Desktop 10/11/23 08:09 DL Document 10/25/23 08:00 DL Desktop 10/25/23 08:06 DL 10/11/23 10/25/23 08:06 08:00 - Today's Visit Information Type of service Follow-up Visit Follow-up Visit (Physician/DEBRIDGING MACHINE OPERATOR (Physician/DEBRIDGING MACHINE OPERATOR ) ) Arrival Mode Ambulatory Ambulatory Transfer Assistance None None Patient Identification Verified (Name & Yes Yes ) Patient Requires Transmission-Based No No Precautions Height and Weight Body Mass Index (BMI) 31.4 31.4 BMI Classification Obese Obese Vital Signs Temperature (97.8 F-99.1 F) 96.4 F L 96.7 F L Temperature Source Temporal Temporal Pulse Rate (60-100) 88 96 Pulse Location Monitor Monitor Respiratory Rate (12-18) 20 H 18 Respiratory rate source Observation Observation Blood Pressure (90/60-120/80) 153/77 H 176/90 H Blood Pressure Mean (mm Hg) 102 118 Source Monitor Monitor History Since Last Visit- (Skip if this is Patient's initial visit) Have you changed medications since your No No last visit? Any new allergies or adverse reactions No No Had a fall/change in ADL's that may No No increase risk of falls Signs or symptoms of abuse and/or No No neglect since last visit Have you been in the hospital since your No No last visit? Has dressing in place as prescribed Yes Yes Has compression in place as prescribed Yes Yes Has offloadiing in place as prescribed N/A N/A Experienced any changes in pain level or No No management Pain Scale: 0-10 Numeric Is Patient Pain Free? Yes Yes WC - Nurse 1 - General Ulcer Measurement Start: 10/11/23 08:06 Freq: Status: Active Protocol: Activity Type Activity Date Activity User E-sign Co-sign Detail Recorded Client Recorded Date Recorded By Document 10/11/23 08:06 DL Desktop 10/11/23 08:09 DL Document 10/25/23 08:00 DL Desktop 10/25/23 08:06 DL 10/11/23 10/25/23 08:06 08:00 Wound Center Nurse 1 #17- L DORSAL FOOT -Current Size (cm) - Length 0.1 0.7 -Current Size (cm) - Width 0.1 0.2 -Current Size (cm) - Depth 0.1 0.2 -Total Square Cm 0.01 0.14 -Photo Taken Yes Yes -Exudate Amt None Present Small -Exudate Type Serosanguineous -Wound Margin Flat & Intact Distinct, Outline Attached -Granulation Amt Medium (34-66%) Small (1-33%) -Granulation Quality Pale [place] -Necrosis Amt Medium (34-66%) None Present (0 %) -Necrotic Tissue Type Adherent Slough -Structure Exposed N/A N/A -Texture (Ara-wound Skin Appearance) Scarring Scarring -Moisture (Ara-wound Skin Appearance) Dry/Scaly No Abnormality -Color (Ara-wound Skin Appearance) Hemosiderin Hemosiderin Staining Staining -Temperature (Ara-wound Skin No Abnormality No Abnormality Appearance) (Pt Warm) (Pt Warm) -Tenderness on Palpation (Ara-wound No No Skin Appearance) -Ulcer Cleansing Soap and Water Soap and Water -Foul Odor after Cleansing No No -Anesthetic Used 5% Lidocaine 5% Lidocaine Gel Gel #10 Left Medial Ankle -Current Size (cm) - Length 3.3 3.6 -Current Size (cm) - Width 1.5 2 -Current Size (cm) - Depth 0.2 0.3 -Total Square Cm 4.95 7.2 -Photo Taken Yes Yes -Exudate Amt Medium Medium -Exudate Type Serosanguineous Serosanguineous -Wound Margin Thickened Thickened -Granulation Amt Medium (34-66%) Medium (34-66%) -Granulation Quality [place] Pale,[place] -Necrosis Amt Medium (34-66%) Medium (34-66%) -Necrotic Tissue Type Adherent Slough Adherent Slough -Structure Exposed N/A N/A -Texture (Ara-wound Skin Appearance) Scarring Scarring -Moisture (Ara-wound Skin Appearance) Dry/Scaly Dry/Scaly -Color (Ara-wound Skin Appearance) Hemosiderin Hemosiderin Staining Staining -Temperature (Ara-wound Skin No Abnormality No Abnormality Appearance) (Pt Warm) (Pt Warm) -Tenderness on Palpation (Ara-wound No No Skin Appearance) -Ulcer Cleansing Soap and Water Soap and Water -Foul Odor after Cleansing No -Anesthetic Used 5% Lidocaine 5% Lidocaine Gel Gel,Cetacaine Left Calf (cm) 36 34 Left Ankle (cm) 22.7 21.8 WC - Nurse 2 - General Ulcer CM Notes Start: 10/11/23 08:06 Freq: Status: Active Protocol: Activity Type Activity Date Activity User E-sign Co-sign Detail Recorded Client Recorded Date Recorded By Document 10/11/23 08:21 Laptop 10/11/23 08:26 Document 10/25/23 08:17 Desktop 10/25/23 08:23 10/11/23 10/25/23 08:21 08:17 Wound Center Nurse 2 #17- L DORSAL FOOT -Time 08:22 08:17 -Correct Patient Yes Yes -Correct Side, Site, Position Yes Yes -Correct Procedure Yes Yes -Procedure Performed Yes Yes -Type of Procedure Debridement Debridement -Clinical Debridement Subcutaneous Subcutaneous -Tissue Removed Subcutaneous Subcutaneous -Post Debridement (cm) - Length 0.2 1.5 -Post Debridement (cm) - Width 1.2 0.3 -Post Debridement (cm) - Depth 0.1 0.1 -Total Square (Post) (cm) 0.24 0.45 -Area of Debridement (cm) - Length 0.2 1.5 -Area of Debridement (cm) - Width 1.2 0.3 -Total Square (Area) (cm) 0.24 0.45 -Tunneling No No -Undermining/Tunneling No No -Circular Undermining No No -Wound/Ulcer Outcome Not Healed Not Healed -Ulcer Cleansing Rinsed/ Rinsed/ Irrigated with Irrigated with Saline Saline -Foul Odor after Cleansing No No -Bioengineered Tissue No No -Bleeding Controlled with Pressure Pressure -Treatment Response Procedure Procedure Tolerated Well Tolerated Well -Offloading No -Debridement - Subq, 1st 20sq cm No Yes #10 Left Medial Ankle -Time 08:22 08:18 -Correct Patient Yes Yes -Correct Side, Site, Position Yes Yes -Correct Procedure Yes Yes -Procedure Performed Yes Yes -Type of Procedure Debridement Debridement -Clinical Debridement Subcutaneous Subcutaneous -Tissue Removed Subcutaneous Subcutaneous -Post Debridement (cm) - Length 3.9 3.5 -Post Debridement (cm) - Width 2 2.0 -Post Debridement (cm) - Depth 0.2 0.2 -Total Square (Post) (cm) 7.8 7.00 -Area of Debridement (cm) - Length 3.9 3.5 -Area of Debridement (cm) - Width 2 2.0 -Total Square (Area) (cm) 7.8 7.00 -Tunneling No No -Undermining/Tunneling No No -Circular Undermining No No -Wound/Ulcer Outcome Not Healed Not Healed -Ulcer Cleansing Rinsed/ Rinsed/ Irrigated with Irrigated with Saline Saline -Foul Odor after Cleansing No No -Bioengineered Tissue No No -Bleeding Controlled with Pressure -Treatment Response Procedure Tolerated Well -Offloading No -Debridement - Subq, 1st 20sq cm Yes No Pain Scale: 0-10 Numeric Is Patient Pain Free? Yes Yes - Nurse 3 - General Ulcer D/C NN Start: 10/11/23 08:06 Freq: Status: Active Protocol: Activity Type Activity Date Activity User E-sign Co-sign Detail Recorded Client Recorded Date Recorded By Document 10/25/23 08:27 [facility] Desktop 10/25/23 08:28 [facility] 10/25/23 08:27 Wound Care Center Nurse 3 #17- L DORSAL FOOT -Other Dressing abd pad; pt going home to shower and will apply drsg #10 Left Medial Ankle -Other Dressing abd; pt going home to shower and will apply drsg BLE -Other PT REAPPLIED OWN COMPRESSION STOCKING Treatment Response Procedure Tolerated Well Pain Scale: 0-10 Numeric Is Patient Pain Free? Yes - Visit Discharge Discharge Condition Stable Ambulatory Status Ambulatory Transportation Private Auto Additional Wound Wound debrided: Left dorsal foot Type of Debridement: Excisional debridement Anesthesia Used: 5% Lidocaine Gel Depth: Down to and including healthy tissue and in the subcutaneous layer Percentage of wound debrided: 100 Instrument Used: 3mm curette Tissue Removed: Slough and devitalized tissue Severity: Fat Layer Exposed Amount of bleeding with debridement: Mild Bleeding Controlled with: Pressure Patient tolerated procedure: Patient tolerated procedure well Assessment/Plan Assessment/Plan (1) Ulcer of left lower extremity with fat layer exposed: CODE(S): L97.922 - Non-pressure chronic ulcer of unspecified part of left lower leg with fat layer exposed (2) PVD (peripheral vascular disease): CODE(S): I73.9 - Peripheral vascular disease, unspecified (3) Chronic venous insufficiency: CODE(S): I87.2 - Venous insufficiency (chronic) (peripheral) (4) Delayed wound healing: CODE(S): T14.8XXD - Other injury of unspecified body region, subsequent encounter PLAN: Plan Debridement done as documented above, procedure was well-tolerated. No new concerns or significant changes. Dorsal also has remained similar for a few weeks, consider switching to Promogran at next visit if still no significant change. For now, continue 10 minutes Dakins soak daily, Aquacel, adaptic and care max to both ulcers. He was advised that he could change it more than once if he notes increased drainage. Continue mupirocin ointment as well. Continue use of compression stockings, leg elevation and exercise. Increased protein intake, protein supplements, zinc and vitamin C also recommended. Continue multivitamins. His questions were answered and he was advised to call with any further questions or concerns. Follow-up in 2 weeks. This note was generated with [employer] dictation software. It may contain incorrect words, spelling, and punctuation that were not noted in checking the note before signing.
== END 2023-10-28 23:59 | disposition home or self-care (01) ==
LOC: WC 08:00
PROVIDERS: PCP Family Medicine; Visit Provider Internal Medicine
DX: I73.9 Peripheral vascular disease, unspecified (principal); L97.322 Non-pressure chronic ulcer of left ankle with fat layer exposed; L97.522 Non-pressure chronic ulcer of other part of left foot with fat layer exposed; I87.2 Venous insufficiency (chronic) (peripheral); R60.0 Localized edema
CPT/HCPCS: 11042

== ENCOUNTER 2023-11-22 08:00 | Outpatient (RCR) | payer OTHER, SELFPAY ==
[2023-10-29 00:46] VITALS: BP 176/90; PULSE 96; RESP 18; TEMP 35.9; O2SAT 99; BMI 31.4
[2023-11-08 08:07] VITALS: BP 154/71; PULSE 91; RESP 20; TEMP 35.6; BMI 31.4
--- NOTE | 2023-11-08 08:37 | PCM.WC.PN ---
History of Present Illness Date of Service: 11/08/23 Chief Complaint: ulcers to the left lower leg History of Wound: This is a 54-year-old male presents to wound healing center with a long-standing history of chronic venous insufficiency, chronic venous hypertension, lower extremity edema, lower extremity pain, and chronic left lower extremity ulcer. 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 He is currently wearing graduated compression stockings which are documented to be 20-30 mmHg compression and these are thigh high. He reports great compliance with use. He is also had previous arterial work-up with no intervention recommended by letter, his vascular surgeon. He denies taking nutritional supplementation. He saw dermatology and had a biopsy of the ulcer site. He also was previously treated by infectious disease for various contaminations and infections. He is not antibiotics at this time nor does he have any redness or odor coming from the wound. He denies fever, chill, nausea, vomiting, loss of appetite. 05/18/22: Mr. Jeronimo presents with a new right lower extremity ulceration. He states that this has been present for months and he has been trying to manage it at home without any significant improvement. Opened up months ago, no known precipitating factor. Has been applying wound dressings without any significant improvement. He reports increased drainage. Denies significant pain. No chills, fever or feeling of unwell. Progress of Wound: Some improvement noted. No new concerns reported at this time. Objective Data Objective Data Vital Signs: Vital Signs Temp Pulse Resp BP Pulse Ox 96.1 F L 91 20 H 154/71 H 99 11/08/23 08:07 11/08/23 08:07 11/08/23 08:07 11/08/23 08:07 10/29/23 00:46 Body Mass Index (BMI) 31.4 Charges/Coding Procedures Integumentary 111xxx-113xx: 45158 Lakeisha subq tissue 20 sq cm/< Physical Exam Const alert, oriented x3 and no apparent distress General Appearance: cooperative and comfortable HEENT normocephalic Head and Scalp: normal to inspection, normocephalic and atraumatic Eyes EOMs intact bilaterally Neck full ROM and supple General: normal visual inspection Resp normal respiratory effort Effort and Inspection: able to speak in complete sentences Extremity normal to inspection General Extremity: edema Skin Wounds: wounds noted Neuro oriented x3 and CN's II-XII intact bilaterally Psych mental status grossly normal Appearance: grossly normal Debridement Note Debridement Note Wound debrided: Left medial ankle Type of Debridement: Excisional debridement Anesthesia Used: 5% Lidocaine Gel Depth: Down to and including healthy tissue and in the subcutaneous layer Percentage of wound debrided: 100 Instrument Used: 5mm curette Tissue Removed: Slough and devitalized tissue Severity: Fat Layer Exposed Bleeding Controlled with: Pressure Patient tolerated procedure: Patient tolerated procedure well Post-Debridement Measurements and Additional Note: Post-Debridement Measurements/Treatment KIMBERLY - Nurse 1 - General Ulcer Assessment Start: 11/08/23 08:07 Freq: Status: Active Protocol: SHANTA Activity Type Activity Date Activity User E-sign Co-sign Detail Recorded Client Recorded Date Recorded By Document 11/08/23 08:07 TIFFANY Desktop 11/08/23 08:11 DL 11/08/23 08:07 KIMBERLY - Today's Visit Information Type of service Follow-up Visit (Physician/MANAGER SKILLED ) Arrival Mode Ambulatory Transfer Assistance None Patient Identification Verified (Name & Yes ) Patient Requires Transmission-Based No Precautions Height and Weight Body Mass Index (BMI) 31.4 BMI Classification Obese Vital Signs Temperature (97.8 F-99.1 F) 96.1 F L Temperature Source Temporal Pulse Rate (60-100) 91 Pulse Location Monitor Respiratory Rate (12-18) 20 H Respiratory rate source Observation Blood Pressure (90/60-120/80) 154/71 H Blood Pressure Mean (mm Hg) 98 Source Monitor History Since Last Visit- (Skip if this is Patient's initial visit) Have you changed medications since your No last visit? Any new allergies or adverse reactions No Had a fall/change in ADL's that may No increase risk of falls Signs or symptoms of abuse and/or No neglect since last visit Have you been in the hospital since your No last visit? Has dressing in place as prescribed Yes Has compression in place as prescribed Yes Has offloadiing in place as prescribed N/A Experienced any changes in pain level or No management Pain Scale: 0-10 Numeric Is Patient Pain Free? Yes KIMBERLY - Nurse 1 - General Ulcer Measurement Start: 11/08/23 08:07 Freq: Status: Active Protocol: Activity Type Activity Date Activity User E-sign Co-sign Detail Recorded Client Recorded Date Recorded By Document 11/08/23 08:07 DL Desktop 11/08/23 08:11 DL 11/08/23 08:07 Wound Center Nurse 1 #17- L DORSAL FOOT -Current Size (cm) - Length 1 -Current Size (cm) - Width 0.1 -Current Size (cm) - Depth 0.1 -Total Square Cm 0.1 -Exudate Amt None Present -Wound Margin Thickened -Granulation Amt Large (67-100%) -Granulation Quality Pale -Necrosis Amt Small (1-33%) -Necrotic Tissue Type Adherent Slough -Structure Exposed N/A -Texture (Ara-wound Skin Appearance) Scarring -Moisture (Ara-wound Skin Appearance) Dry/Scaly -Color (Ara-wound Skin Appearance) Hemosiderin Staining -Temperature (Ara-wound Skin No Abnormality Appearance) (Pt Warm) -Ulcer Cleansing Soap and Water -Foul Odor after Cleansing No -Anesthetic Used 5% Lidocaine Gel #10 Left Medial Ankle -Current Size (cm) - Length 3.3 -Current Size (cm) - Width 1.9 -Current Size (cm) - Depth 0.2 -Total Square Cm 6.27 -Exudate Amt Medium -Exudate Type Serosanguineous -Wound Margin Distinct, Outline Attached -Granulation Amt Medium (34-66%) -Granulation Quality [place],Red -Necrosis Amt Medium (34-66%) -Necrotic Tissue Type Adherent Slough -Structure Exposed N/A -Texture (Ara-wound Skin Appearance) Scarring -Moisture (Ara-wound Skin Appearance) Dry/Scaly -Color (Ara-wound Skin Appearance) Hemosiderin Staining -Temperature (Ara-wound Skin No Abnormality Appearance) (Pt Warm) -Tenderness on Palpation (Ara-wound No Skin Appearance) -Ulcer Cleansing Soap and Water -Foul Odor after Cleansing No -Anesthetic Used 5% Lidocaine Gel Left Calf (cm) 35.3 Left Ankle (cm) 23.3 WC - Nurse 2 - General Ulcer CM Notes Start: 11/08/23 08:07 Freq: Status: Active Protocol: Activity Type Activity Date Activity User E-sign Co-sign Detail Recorded Client Recorded Date Recorded By Document 11/08/23 08:23 Desktop 11/08/23 08:31 11/08/23 08:23 Wound Center Nurse 2 #17- L DORSAL FOOT -Time 08:24 -Correct Patient Yes -Correct Side, Site, Position Yes -Correct Procedure Yes -Procedure Performed Yes -Type of Procedure Debridement -Clinical Debridement Subcutaneous -Tissue Removed Subcutaneous -Post Debridement (cm) - Length 1.0 -Post Debridement (cm) - Width 0.1 -Post Debridement (cm) - Depth 0.1 -Total Square (Post) (cm) 0.10 -Area of Debridement (cm) - Length 1.0 -Area of Debridement (cm) - Width 0.1 -Total Square (Area) (cm) 0.10 -Tunneling No -Undermining/Tunneling No -Circular Undermining No -Wound/Ulcer Outcome Not Healed -Ulcer Cleansing Rinsed/ Irrigated with Saline -Foul Odor after Cleansing No -Bioengineered Tissue No -Bleeding Controlled with Pressure -Treatment Response Procedure Tolerated Well -Debridement - Subq, 1st 20sq cm No #10 Left Medial Ankle -Time 08:24 -Correct Patient Yes -Correct Side, Site, Position Yes -Correct Procedure Yes -Procedure Performed Yes -Type of Procedure Debridement -Clinical Debridement Subcutaneous -Tissue Removed Subcutaneous -Post Debridement (cm) - Length 3.5 -Post Debridement (cm) - Width 1.9 -Post Debridement (cm) - Depth 0.2 -Total Square (Post) (cm) 6.65 -Area of Debridement (cm) - Length 3.5 -Area of Debridement (cm) - Width 1.9 -Total Square (Area) (cm) 6.65 -Tunneling No -Undermining/Tunneling No -Circular Undermining No -Wound/Ulcer Outcome Not Healed -Ulcer Cleansing Rinsed/ Irrigated with Saline -Foul Odor after Cleansing No -Bioengineered Tissue No -Bleeding Controlled with Pressure -Treatment Response Procedure Tolerated Well -Debridement - Subq, 1st 20sq cm Yes Pain Scale: 0-10 Numeric Is Patient Pain Free? Yes Additional Wound Wound debrided: Left dorsal foot Type of Debridement: Excisional debridement Anesthesia Used: 5% Lidocaine Gel Depth: Down to and including healthy tissue and in the subcutaneous layer Percentage of wound debrided: 100 Instrument Used: 3mm curette Tissue Removed: Slough and devitalized tissue Severity: Fat Layer Exposed Amount of bleeding with debridement: Mild Bleeding Controlled with: Pressure Patient tolerated procedure: Patient tolerated procedure well Assessment/Plan Assessment/Plan (1) Ulcer of left lower extremity with fat layer exposed: CODE(S): L97.922 - Non-pressure chronic ulcer of unspecified part of left lower leg with fat layer exposed (2) PVD (peripheral vascular disease): CODE(S): I73.9 - Peripheral vascular disease, unspecified (3) Chronic venous insufficiency: CODE(S): I87.2 - Venous insufficiency (chronic) (peripheral) (4) Delayed wound healing: CODE(S): T14.8XXD - Other injury of unspecified body region, subsequent encounter PLAN: Plan Debridement done as documented above, procedure was well-tolerated. No new concerns. Some improvement noted this week. For now, continue 10 minutes Dakins soak daily, Aquacel, adaptic and care max to both ulcers. He was advised that he could change it more than once if he notes increased drainage. Continue mupirocin ointment as well. Continue use of compression stockings, leg elevation and exercise. Increased protein intake, protein supplements, zinc and vitamin C also recommended. Continue multivitamins. His questions were answered and he was advised to call with any further questions or concerns. Follow-up in 2 weeks. This note was generated with [employer] dictation software. It may contain incorrect words, spelling, and punctuation that were not noted in checking the note before signing.
[2023-11-22 07:59] VITALS: BP 152/66; PULSE 88; RESP 18; TEMP 35.8; BMI 31.4
--- NOTE | 2023-11-22 08:43 | PN.PCM_ITS ---
History of Present Illness Date of Service: 11/22/23 Chief Complaint: ulcers to the left lower leg History of Wound: This is a 54-year-old male presents to wound healing center with a long-standing history of chronic venous insufficiency, chronic venous hypertension, lower extremity edema, lower extremity pain, and chronic left lower extremity ulcer. 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 He is currently wearing graduated compression stockings which are documented to be 20-30 mmHg compression and these are thigh high. He reports great compliance with use. He is also had previous arterial work-up with no intervention recommended by letter, his vascular surgeon. He denies taking nutritional supplementation. He saw dermatology and had a biopsy of the ulcer site. He also was previously treated by infectious disease for various contaminations and infections. He is not antibiotics at this time nor does he have any redness or odor coming from the wound. He denies fever, chill, nausea, vomiting, loss of appetite. 05/18/22: Mr. Jeronimo presents with a new right lower extremity ulceration. He states that this has been present for months and he has been trying to manage it at home without any significant improvement. Opened up months ago, no known precipitating factor. Has been applying wound dressings without any significant improvement. He reports increased drainage. Denies significant pain. No chills, fever or feeling of unwell. Progress of Wound: Largely stable. No new concerns reported at this time. Objective Data Objective Data Vital Signs: Vital Signs Temp Pulse Resp BP Pulse Ox 96.4 F L 88 18 152/66 H 99 11/22/23 07:59 11/22/23 07:59 11/22/23 07:59 11/22/23 07:59 10/29/23 00:46 Body Mass Index (BMI) 31.4 Charges/Coding Procedures Integumentary 111xxx-113xx: 68349 Lakeisha subq tissue 20 sq cm/< Physical Exam Const alert, oriented x3 and no apparent distress General Appearance: cooperative and comfortable HEENT normocephalic Head and Scalp: normal to inspection, normocephalic and atraumatic Eyes EOMs intact bilaterally Neck full ROM and supple General: normal visual inspection Resp normal respiratory effort Effort and Inspection: able to speak in complete sentences Extremity normal to inspection General Extremity: edema Skin Wounds: wounds noted Neuro oriented x3 and CN's II-XII intact bilaterally Psych mental status grossly normal Appearance: grossly normal Debridement Note Debridement Note Wound debrided: Left medial ankle Type of Debridement: Excisional debridement Anesthesia Used: 5% Lidocaine Gel Depth: Down to and including healthy tissue and in the subcutaneous layer Percentage of wound debrided: 100 Instrument Used: 5mm curette Tissue Removed: Slough and devitalized tissue Severity: Fat Layer Exposed Bleeding Controlled with: Pressure Patient tolerated procedure: Patient tolerated procedure well Post-Debridement Measurements and Additional Note: Post-Debridement Measurements/Treatment - Nurse 1 - General Ulcer Assessment Start: 11/08/23 08:07 Freq: Status: Active Protocol: SHANTA Activity Type Activity Date Activity User E-sign Co-sign Detail Recorded Client Recorded Date Recorded By Document 11/08/23 08:07 DL Desktop 11/08/23 08:11 DL Document 11/22/23 07:59 DL Desktop 11/22/23 08:05 DL 11/08/23 11/22/23 08:07 07:59 - Today's Visit Information Type of service Follow-up Visit Follow-up Visit (Physician/PREPARATION SUPERVISOR CANNING (Physician/PREPARATION SUPERVISOR CANNING ) ) Arrival Mode Ambulatory Ambulatory Transfer Assistance None None Patient Identification Verified (Name & Yes Yes ) Patient Requires Transmission-Based No No Precautions Height and Weight Body Mass Index (BMI) 31.4 31.4 BMI Classification Obese Obese Vital Signs Temperature (97.8 F-99.1 F) 96.1 F L 96.4 F L Temperature Source Temporal Temporal Pulse Rate (60-100) 91 88 Pulse Location Monitor Monitor Respiratory Rate (12-18) 20 H 18 Respiratory rate source Observation Observation Blood Pressure (90/60-120/80) 154/71 H 152/66 H Blood Pressure Mean (mm Hg) 98 94 Source Monitor Monitor History Since Last Visit- (Skip if this is Patient's initial visit) Have you changed medications since your No No last visit? Any new allergies or adverse reactions No No Had a fall/change in ADL's that may No No increase risk of falls Signs or symptoms of abuse and/or No No neglect since last visit Have you been in the hospital since your No No last visit? Has dressing in place as prescribed Yes Yes Has compression in place as prescribed Yes Yes Has offloadiing in place as prescribed N/A N/A Experienced any changes in pain level or No No management Pain Scale: 0-10 Numeric Is Patient Pain Free? Yes Yes WC - Nurse 1 - General Ulcer Measurement Start: 11/08/23 08:07 Freq: Status: Active Protocol: Activity Type Activity Date Activity User E-sign Co-sign Detail Recorded Client Recorded Date Recorded By Document 11/08/23 08:07 DL Desktop 11/08/23 08:11 DL Document 11/22/23 07:59 DL Desktop 11/22/23 08:05 DL 11/08/23 11/22/23 08:07 07:59 Wound Center Nurse 1 #17- L DORSAL FOOT -Current Size (cm) - Length 1 0.1 -Current Size (cm) - Width 0.1 0.1 -Current Size (cm) - Depth 0.1 0.1 -Total Square Cm 0.1 0.01 -Photo Taken Yes -Exudate Amt None Present None Present -Wound Margin Thickened Flat & Intact -Granulation Amt Large (67-100%) Small (1-33%) -Granulation Quality Pale Pale -Necrosis Amt Small (1-33%) Small (1-33%) -Necrotic Tissue Type Adherent Slough Adherent Slough -Structure Exposed N/A N/A -Texture (Ara-wound Skin Appearance) Scarring Scarring -Moisture (Ara-wound Skin Appearance) Dry/Scaly No Abnormality -Color (Ara-wound Skin Appearance) Hemosiderin Hemosiderin Staining Staining -Temperature (Ara-wound Skin No Abnormality No Abnormality Appearance) (Pt Warm) (Pt Warm) -Tenderness on Palpation (Ara-wound No Skin Appearance) -Ulcer Cleansing Soap and Water Soap and Water -Foul Odor after Cleansing No No -Anesthetic Used 5% Lidocaine 5% Lidocaine Gel Gel #10 Left Medial Ankle -Current Size (cm) - Length 3.3 4 -Current Size (cm) - Width 1.9 1.9 -Current Size (cm) - Depth 0.2 0.2 -Total Square Cm 6.27 7.6 -Photo Taken Yes -Exudate Amt Medium Medium -Exudate Type Serosanguineous Serosanguineous -Wound Margin Distinct, Distinct, Outline Outline Attached Attached -Granulation Amt Medium (34-66%) Medium (34-66%) -Granulation Quality [place],Red Red -Necrosis Amt Medium (34-66%) Medium (34-66%) -Necrotic Tissue Type Adherent Slough Adherent Slough -Structure Exposed N/A N/A -Texture (Ara-wound Skin Appearance) Scarring Scarring -Moisture (Ara-wound Skin Appearance) Dry/Scaly No Abnormality -Color (Ara-wound Skin Appearance) Hemosiderin Hemosiderin Staining Staining -Temperature (Ara-wound Skin No Abnormality No Abnormality Appearance) (Pt Warm) (Pt Warm) -Tenderness on Palpation (Ara-wound No No Skin Appearance) -Ulcer Cleansing Soap and Water Soap and Water -Foul Odor after Cleansing No No -Anesthetic Used 5% Lidocaine 5% Lidocaine Gel Gel Left Calf (cm) 35.3 36.3 Left Ankle (cm) 23.3 22.8 WC - Nurse 2 - General Ulcer CM Notes Start: 11/08/23 08:07 Freq: Status: Active Protocol: Activity Type Activity Date Activity User E-sign Co-sign Detail Recorded Client Recorded Date Recorded By Document 11/08/23 08:23 Desktop 11/08/23 08:31 Document 11/22/23 08:23 [id number] 11/22/23 08:36 11/08/23 11/22/23 08:23 08:23 Wound Center Nurse 2 #17- L DORSAL FOOT -Time 08:24 08:23 -Correct Patient Yes Yes -Correct Side, Site, Position Yes Yes -Correct Procedure Yes Yes -Procedure Performed Yes Yes -Type of Procedure Debridement Debridement -Clinical Debridement Subcutaneous Subcutaneous -Tissue Removed Subcutaneous Subcutaneous -Post Debridement (cm) - Length 1.0 1 -Post Debridement (cm) - Width 0.1 0.1 -Post Debridement (cm) - Depth 0.1 0.1 -Total Square (Post) (cm) 0.10 0.1 -Area of Debridement (cm) - Length 1.0 1 -Area of Debridement (cm) - Width 0.1 0.1 -Total Square (Area) (cm) 0.10 0.1 -Tunneling No No -Undermining/Tunneling No No -Circular Undermining No No -Wound/Ulcer Outcome Not Healed Not Healed -Ulcer Cleansing Rinsed/ Rinsed/ Irrigated with Irrigated with Saline Saline -Foul Odor after Cleansing No No -Bioengineered Tissue No No -Bleeding Controlled with Pressure Pressure -Treatment Response Procedure Procedure Tolerated Well Tolerated Well -Debridement - Subq, 1st 20sq cm No No #10 Left Medial Ankle -Time 08:24 08:26 -Correct Patient Yes Yes -Correct Side, Site, Position Yes Yes -Correct Procedure Yes Yes -Procedure Performed Yes Yes -Type of Procedure Debridement Debridement -Clinical Debridement Subcutaneous Subcutaneous -Tissue Removed Subcutaneous Subcutaneous -Post Debridement (cm) - Length 3.5 3.5 -Post Debridement (cm) - Width 1.9 2.0 -Post Debridement (cm) - Depth 0.2 0.1 -Total Square (Post) (cm) 6.65 7.00 -Area of Debridement (cm) - Length 3.5 3.5 -Area of Debridement (cm) - Width 1.9 2.0 -Total Square (Area) (cm) 6.65 7.00 -Tunneling No No -Undermining/Tunneling No No -Circular Undermining No No -Wound/Ulcer Outcome Not Healed Not Healed -Ulcer Cleansing Rinsed/ Rinsed/ Irrigated with Irrigated with Saline Saline -Foul Odor after Cleansing No No -Bioengineered Tissue No No -Bleeding Controlled with Pressure Pressure -Treatment Response Procedure Procedure Tolerated Well Tolerated Well -Debridement - Subq, 1st 20sq cm Yes Yes Pain Scale: 0-10 Numeric Is Patient Pain Free? 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 Yes Yes Teaching: Wound Center Dressing your wound w/hydroferra blue -Person Taught Patient -Teaching Method Discussion, Demonstration -Response to teaching Verbalize understanding WC - Visit Discharge Discharge Condition Stable Stable Ambulatory Status Ambulatory Ambulatory Transportation Private Auto Private Auto Medication Reconcilliation completed & Yes provided to patient/care provider Clinical Summary of Care Provided Yes Additional Wound Wound debrided: Left dorsal foot Type of Debridement: Excisional debridement Anesthesia Used: 5% Lidocaine Gel Depth: Down to and including healthy tissue and in the subcutaneous layer Percentage of wound debrided: 100 Instrument Used: 3mm curette Tissue Removed: Slough and devitalized tissue Severity: Fat Layer Exposed Amount of bleeding with debridement: Mild Bleeding Controlled with: Pressure Patient tolerated procedure: Patient tolerated procedure well Assessment/Plan Assessment/Plan (1) Ulcer of left lower extremity with fat layer exposed: CODE(S): L97.922 - Non-pressure chronic ulcer of unspecified part of left lower leg with fat layer exposed (2) PVD (peripheral vascular disease): CODE(S): I73.9 - Peripheral vascular disease, unspecified (3) Chronic venous insufficiency: CODE(S): I87.2 - Venous insufficiency (chronic) (peripheral) (4) Delayed wound healing: CODE(S): T14.8XXD - Other injury of unspecified body region, subsequent encounter PLAN: Plan Debridement done as documented above, procedure was well-tolerated. No new concerns and no significant change. For now, continue 10 minutes Dakins soak daily, Aquacel, adaptic and care max to both ulcers. He was advised that he could change it more than once if he notes increased drainage. Continue mupirocin ointment as well. Continue use of compression stockings, leg elevation and exercise. Increased protein intake, protein supplements, zinc and vitamin C also recommended. Continue multivitamins. His questions were answered and he was advised to call with any further questions or concerns. Follow-up in 2 weeks. This note was generated with [employer] software. It may contain incorrect words, spelling, and punctuation that were not noted in checking the note before signing.
== END 2023-11-28 23:59 | disposition home or self-care (01) ==
LOC: WC 08:00
PROVIDERS: PCP Family Medicine; Referring Provider Family Medicine; Visit Provider Internal Medicine
DX: I73.9 Peripheral vascular disease, unspecified (principal); L97.322 Non-pressure chronic ulcer of left ankle with fat layer exposed; L97.522 Non-pressure chronic ulcer of other part of left foot with fat layer exposed; I87.2 Venous insufficiency (chronic) (peripheral); R60.0 Localized edema
CPT/HCPCS: 11042

== ENCOUNTER 2023-12-20 08:00 | Outpatient (RCR) | payer OTHER, SELFPAY ==
[2023-11-29 00:29] VITALS: BP 152/66; PULSE 88; RESP 18; TEMP 35.8; O2SAT 99; BMI 31.4
[2023-12-06 08:01] VITALS: BP 148/76; PULSE 92; RESP 20; TEMP 35.4; BMI 31.4
--- NOTE | 2023-12-06 08:29 | PCM.WC.PN ---
History of Present Illness Date of Service: 12/06/23 Chief Complaint: ulcers to the left lower leg History of Wound: This is a 54-year-old male presents to wound healing center with a long-standing history of chronic venous insufficiency, chronic venous hypertension, lower extremity edema, lower extremity pain, and chronic left lower extremity ulcer. 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 He is currently wearing graduated compression stockings which are documented to be 20-30 mmHg compression and these are thigh high. He reports great compliance with use. He is also had previous arterial work-up with no intervention recommended by letter, his vascular surgeon. He denies taking nutritional supplementation. He saw dermatology and had a biopsy of the ulcer site. He also was previously treated by infectious disease for various contaminations and infections. He is not antibiotics at this time nor does he have any redness or odor coming from the wound. He denies fever, chill, nausea, vomiting, loss of appetite. 05/18/22: Mr. Jeronimo presents with a new right lower extremity ulceration. He states that this has been present for months and he has been trying to manage it at home without any significant improvement. Opened up months ago, no known precipitating factor. Has been applying wound dressings without any significant improvement. He reports increased drainage. Denies significant pain. No chills, fever or feeling of unwell. Progress of Wound: No new concerns at this time. Dorsal foot essentially healed. He denies increased drainage. Objective Data Objective Data Vital Signs: Vital Signs Temp Pulse Resp BP Pulse Ox 95.8 F L 92 20 H 148/76 H 99 12/06/23 08:01 12/06/23 08:01 12/06/23 08:01 12/06/23 08:01 11/29/23 00:29 Body Mass Index (BMI) 31.4 Charges/Coding Procedures Integumentary 111xxx-113xx: 46407 Lakeisha subq tissue 20 sq cm/< Physical Exam Const alert, oriented x3 and no apparent distress General Appearance: cooperative and comfortable HEENT normocephalic Head and Scalp: normal to inspection, normocephalic and atraumatic Eyes EOMs intact bilaterally Neck full ROM and supple General: normal visual inspection Resp normal respiratory effort Effort and Inspection: able to speak in complete sentences Extremity normal to inspection General Extremity: edema Skin Wounds: wounds noted Neuro oriented x3 and CN's II-XII intact bilaterally Psych mental status grossly normal Appearance: grossly normal Debridement Note Debridement Note Wound debrided: Left medial ankle Type of Debridement: Excisional debridement Anesthesia Used: 5% Lidocaine Gel Depth: Down to and including healthy tissue and in the subcutaneous layer Percentage of wound debrided: 100 Instrument Used: 5mm curette Tissue Removed: Slough and devitalized tissue Severity: Fat Layer Exposed Bleeding Controlled with: Pressure Patient tolerated procedure: Patient tolerated procedure well Post-Debridement Measurements and Additional Note: Post-Debridement Measurements/Treatment - Nurse 1 - General Ulcer Assessment Start: 12/06/23 08:01 Freq: Status: Active Protocol: SHANTA Activity Type Activity Date Activity User E-sign Co-sign Detail Recorded Client Recorded Date Recorded By Document 12/06/23 08:01 DL Desktop 12/06/23 08:06 DL 12/06/23 08:01 WC - Today's Visit Information Type of service Follow-up Visit (Physician/GLASS PULVERIZER EQUIPMENT OPERATOR ) Arrival Mode Ambulatory Transfer Assistance None Patient Identification Verified (Name & Yes ) Patient Requires Transmission-Based No Precautions Safety Precautions NA Height and Weight Body Mass Index (BMI) 31.4 BMI Classification Obese Vital Signs Temperature (97.8 F-99.1 F) 95.8 F L Temperature Source Temporal Pulse Rate (60-100) 92 Pulse Location Monitor Respiratory Rate (12-18) 20 H Respiratory rate source Observation Blood Pressure (90/60-120/80) 148/76 H Blood Pressure Mean (mm Hg) 100 Source Monitor History Since Last Visit- (Skip if this is Patient's initial visit) Have you changed medications since your No last visit? Any new allergies or adverse reactions No Had a fall/change in ADL's that may No increase risk of falls Signs or symptoms of abuse and/or No neglect since last visit Have you been in the hospital since your No last visit? Has dressing in place as prescribed Yes Has compression in place as prescribed Yes Has offloadiing in place as prescribed N/A Experienced any changes in pain level or No management Pain Scale: 0-10 Numeric Is Patient Pain Free? Yes - Nurse 1 - General Ulcer Measurement Start: 12/06/23 08:01 Freq: Status: Active Protocol: Activity Type Activity Date Activity User E-sign Co-sign Detail Recorded Client Recorded Date Recorded By Document 12/06/23 08:01 DL Desktop 12/06/23 08:06 DL 12/06/23 08:01 Wound Center Nurse 1 #17- L DORSAL FOOT -Current Size (cm) - Length 0.1 -Current Size (cm) - Width 0.1 -Current Size (cm) - Depth 0.1 -Total Square Cm 0.01 -Wound Margin Indistinct, Non -Visible -Granulation Amt Large (67-100%) -Granulation Quality [place] -Necrosis Amt None Present (0 %) -Structure Exposed N/A -Texture (Ara-wound Skin Appearance) Scarring -Moisture (Ara-wound Skin Appearance) Dry/Scaly -Color (Ara-wound Skin Appearance) Hemosiderin Staining -Temperature (Ara-wound Skin No Abnormality Appearance) (Pt Warm) -Tenderness on Palpation (Ara-wound No Skin Appearance) -Ulcer Cleansing Soap and Water -Foul Odor after Cleansing No -Anesthetic Used 5% Lidocaine Gel #10 Left Medial Ankle -Current Size (cm) - Length 3.5 -Current Size (cm) - Width 1.8 -Current Size (cm) - Depth 0.2 -Total Square Cm 6.30 -Exudate Amt Medium -Exudate Type Serosanguineous -Wound Margin Distinct, Outline Attached -Granulation Amt Medium (34-66%) -Granulation Quality Red -Necrosis Amt Medium (34-66%) -Necrotic Tissue Type Adherent Slough -Structure Exposed N/A -Texture (Ara-wound Skin Appearance) Scarring -Moisture (Ara-wound Skin Appearance) Dry/Scaly -Color (Ara-wound Skin Appearance) Hemosiderin Staining -Temperature (Ara-wound Skin No Abnormality Appearance) (Pt Warm) -Tenderness on Palpation (Ara-wound No Skin Appearance) -Ulcer Cleansing Soap and Water -Foul Odor after Cleansing No -Anesthetic Used 5% Lidocaine Gel Left Calf (cm) 35.7 Left Ankle (cm) 22.7 WC - Nurse 2 - General Ulcer CM Notes Start: 12/06/23 08:01 Freq: Status: Active Protocol: Activity Type Activity Date Activity User E-sign Co-sign Detail Recorded Client Recorded Date Recorded By Document 12/06/23 08:17 Desktop 12/06/23 08:24 12/06/23 08:17 Wound Center Nurse 2 #17- L DORSAL FOOT -Time 08:17 -Tunneling No -Undermining/Tunneling No -Circular Undermining No -Wound/Ulcer Outcome Healed- Epithelialized #10 Left Medial Ankle -Time 08:23 -Correct Patient Yes -Correct Side, Site, Position Yes -Correct Procedure Yes -Procedure Performed Yes -Type of Procedure Debridement -Clinical Debridement Subcutaneous -Tissue Removed Subcutaneous -Post Debridement (cm) - Length 3.5 -Post Debridement (cm) - Width 2.3 -Post Debridement (cm) - Depth 0.3 -Total Square (Post) (cm) 8.05 -Tunneling No -Undermining/Tunneling No -Circular Undermining No -Wound/Ulcer Outcome Not Healed -Ulcer Cleansing Rinsed/ Irrigated with Saline -Foul Odor after Cleansing No -Bioengineered Tissue No -Bleeding Controlled with Pressure -Treatment Response Procedure Tolerated Well -Debridement - Subq, 1st 20sq cm Yes Pain Scale: 0-10 Numeric Is Patient Pain Free? Yes - Nurse 3 - General Ulcer D/C NN Start: 12/06/23 08:01 Freq: Status: Active Protocol: Activity Type Activity Date Activity User E-sign Co-sign Detail Recorded Client Recorded Date Recorded By Document 12/06/23 08:27 Desktop 12/06/23 08:28 12/06/23 08:27 Wound Care Center Nurse 3 #10 Left Medial Ankle -Ulcer Cleansing Not Cleansed -Foul Odor after Cleansing No -Primary Dressing Applied Fibracol Plus 4x4 -Primary Dressing Covered/Secured with Dry Gauze, Secured with Tape -Fibracol Plus 4x4 1 Pain Scale: 0-10 Numeric Is Patient Pain Free? Yes Teaching: Wound Center Dressing your wound w/hydroferra blue -Person Taught Patient -Teaching Method Discussion, Demonstration -Response to teaching Verbalize understanding WC - Visit Discharge Discharge Condition Stable Ambulatory Status Ambulatory Transportation Private Auto Medication Reconcilliation completed & Yes provided to patient/care provider Clinical Summary of Care Provided Yes Assessment/Plan Assessment/Plan (1) Ulcer of left lower extremity with fat layer exposed: CODE(S): L97.922 - Non-pressure chronic ulcer of unspecified part of left lower leg with fat layer exposed (2) PVD (peripheral vascular disease): CODE(S): I73.9 - Peripheral vascular disease, unspecified (3) Chronic venous insufficiency: CODE(S): I87.2 - Venous insufficiency (chronic) (peripheral) (4) Delayed wound healing: CODE(S): T14.8XXD - Other injury of unspecified body region, subsequent encounter PLAN: Plan Debridement done as documented above, procedure was well-tolerated. Slight increase in depth. He denies increased drainage or pain. Dorsal foot as above is healed. Switch to Fibracol, cover with gauze. Continue 10 minutes Dakins soak daily. Adaptic over right dorsal foot area. Continue left medial ankle Care Max Care to left medial ankle. He was advised that he could change it more than once if he notes increased drainage. Continue mupirocin ointment as well. Continue use of compression stockings, leg elevation and exercise. Increased protein intake, protein supplements, zinc and vitamin C also recommended. Continue multivitamins. His questions were answered and he was advised to call with any further questions or concerns. Follow-up in 2 weeks. This note was generated with [employer] dictation software. It may contain incorrect words, spelling, and punctuation that were not noted in checking the note before signing.
[2023-12-20 08:11] VITALS: BP 157/76; PULSE 92; RESP 18; TEMP 35.6; BMI 31.4
--- NOTE | 2023-12-20 08:28 | PCM.WC.PN ---
History of Present Illness Date of Service: 12/20/23 Chief Complaint: ulcers to the left lower leg History of Wound: This is a 54-year-old male presents to wound healing center with a long-standing history of chronic venous insufficiency, chronic venous hypertension, lower extremity edema, lower extremity pain, and chronic left lower extremity ulcer. 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 He is currently wearing graduated compression stockings which are documented to be 20-30 mmHg compression and these are thigh high. He reports great compliance with use. He is also had previous arterial work-up with no intervention recommended by letter, his vascular surgeon. He denies taking nutritional supplementation. He saw dermatology and had a biopsy of the ulcer site. He also was previously treated by infectious disease for various contaminations and infections. He is not antibiotics at this time nor does he have any redness or odor coming from the wound. He denies fever, chill, nausea, vomiting, loss of appetite. 05/18/22: Mr. Jeronimo presents with a new right lower extremity ulceration. He states that this has been present for months and he has been trying to manage it at home without any significant improvement. Opened up months ago, no known precipitating factor. Has been applying wound dressings without any significant improvement. He reports increased drainage. Denies significant pain. No chills, fever or feeling of unwell. Progress of Wound: No new concerns at this time. Dorsal foot stays healed. Tolerating Fibracol well. Objective Data Objective Data Vital Signs: Vital Signs Temp Pulse Resp BP Pulse Ox 96.1 F L 92 18 157/76 H 99 12/20/23 08:11 12/20/23 08:11 12/20/23 08:11 12/20/23 08:11 11/29/23 00:29 Body Mass Index (BMI) 31.4 Charges/Coding Procedures Integumentary 111xxx-113xx: 12569 Lakeisha subq tissue 20 sq cm/< Physical Exam Const alert, oriented x3 and no apparent distress General Appearance: cooperative and comfortable HEENT normocephalic Head and Scalp: normal to inspection, normocephalic and atraumatic Eyes EOMs intact bilaterally Neck full ROM and supple General: normal visual inspection Resp normal respiratory effort Effort and Inspection: able to speak in complete sentences Extremity normal to inspection General Extremity: edema Skin Wounds: wounds noted Neuro oriented x3 and CN's II-XII intact bilaterally Psych mental status grossly normal Appearance: grossly normal Debridement Note Debridement Note Wound debrided: Left medial ankle Type of Debridement: Excisional debridement Anesthesia Used: 5% Lidocaine Gel Depth: Down to and including healthy tissue and in the subcutaneous layer Percentage of wound debrided: 100 Instrument Used: 5mm curette Tissue Removed: Slough and devitalized tissue Severity: Fat Layer Exposed Bleeding Controlled with: Pressure Patient tolerated procedure: Patient tolerated procedure well Post-Debridement Measurements and Additional Note: Post-Debridement Measurements/Treatment WC - Nurse 1 - General Ulcer Assessment Start: 12/06/23 08:01 Freq: Status: Active Protocol: SHANTA Activity Type Activity Date Activity User E-sign Co-sign Detail Recorded Client Recorded Date Recorded By Document 12/06/23 08:01 DL Desktop 12/06/23 08:06 DL Document 12/20/23 08:11 RB Desktop 12/20/23 08:13 RB 12/06/23 12/20/23 08:01 08:11 - Today's Visit Information Type of service Follow-up Visit Follow-up Visit (Physician/MATZO FORMING MACHINE OPERATOR (Physician/MATZO FORMING MACHINE OPERATOR ) ) Arrival Mode Ambulatory Ambulatory Transfer Assistance None None Patient Identification Verified (Name & Yes Yes ) Patient Requires Transmission-Based No No Precautions Safety Precautions NA Height and Weight Body Mass Index (BMI) 31.4 31.4 BMI Classification Obese Obese Vital Signs Temperature (97.8 F-99.1 F) 95.8 F L 96.1 F L Temperature Source Temporal Temporal Pulse Rate (60-100) 92 92 Pulse Location Monitor Monitor Respiratory Rate (12-18) 20 H 18 Respiratory rate source Observation Observation Blood Pressure (90/60-120/80) 148/76 H 157/76 H Blood Pressure Mean (mm Hg) 100 103 Source Monitor Monitor Position Semi-Fowlers Blood Pressure Location Left Arm History Since Last Visit- (Skip if this is Patient's initial visit) Have you changed medications since your No No last visit? Any new allergies or adverse reactions No No Had a fall/change in ADL's that may No No increase risk of falls Signs or symptoms of abuse and/or No No neglect since last visit Have you been in the hospital since your No No last visit? Has dressing in place as prescribed Yes Yes Has compression in place as prescribed Yes Yes Has offloadiing in place as prescribed N/A No Experienced any changes in pain level or No No management Pain Scale: 0-10 Numeric Is Patient Pain Free? Yes Yes WC - Nurse 1 - General Ulcer Measurement Start: 12/06/23 08:01 Freq: Status: Active Protocol: Activity Type Activity Date Activity User E-sign Co-sign Detail Recorded Client Recorded Date Recorded By Document 12/06/23 08:01 DL Desktop 12/06/23 08:06 DL Document 12/20/23 08:11 RB Desktop 12/20/23 08:13 RB 12/06/23 12/20/23 08:01 08:11 Wound Center Nurse 1 #17- L DORSAL FOOT -Current Size (cm) - Length 0.1 -Current Size (cm) - Width 0.1 -Current Size (cm) - Depth 0.1 -Total Square Cm 0.01 -Wound Margin Indistinct, Non -Visible -Granulation Amt Large (67-100%) -Granulation Quality [place] -Necrosis Amt None Present (0 %) -Structure Exposed N/A -Texture (Ara-wound Skin Appearance) Scarring -Moisture (Ara-wound Skin Appearance) Dry/Scaly -Color (Ara-wound Skin Appearance) Hemosiderin Staining -Temperature (Ara-wound Skin No Abnormality Appearance) (Pt Warm) -Tenderness on Palpation (Ara-wound No Skin Appearance) -Ulcer Cleansing Soap and Water -Foul Odor after Cleansing No -Anesthetic Used 5% Lidocaine Gel #10 Left Medial Ankle -Combined with other wound No -Current Size (cm) - Length 3.5 3.8 -Current Size (cm) - Width 1.8 1.6 -Current Size (cm) - Depth 0.2 0.2 -Total Square Cm 6.30 6.08 -Photo Taken Yes -Tunneling No -Undermining/Tunneling No -Circular Undermining No -Exudate Amt Medium Medium -Exudate Type Serosanguineous Serosanguineous -Wound Margin Distinct, Thickened Outline Attached -Granulation Amt Medium (34-66%) Medium (34-66%) -Granulation Quality Red [place] -Slough/Fibrin Yes -Necrosis Amt Medium (34-66%) Medium (34-66%) -Necrotic Tissue Type Adherent Slough Adherent Slough -Structure Exposed N/A N/A -Texture (Ara-wound Skin Appearance) Scarring Assessed, Scarring -Moisture (Ara-wound Skin Appearance) Dry/Scaly Assessed -Color (Ara-wound Skin Appearance) Hemosiderin Assessed Staining -Temperature (Ara-wound Skin No Abnormality No Abnormality Appearance) (Pt Warm) (Pt Warm) -Tenderness on Palpation (Ara-wound No No Skin Appearance) -Ulcer Cleansing Soap and Water Wound Cleanser -Foul Odor after Cleansing No No -Anesthetic Used 5% Lidocaine 5% Lidocaine Gel Gel Lower Limb Edema Present Yes Left Calf (cm) 35.7 36 Left Ankle (cm) 22.7 23.4 WC - Nurse 2 - General Ulcer CM Notes Start: 12/06/23 08:01 Freq: Status: Active Protocol: Activity Type Activity Date Activity User E-sign Co-sign Detail Recorded Client Recorded Date Recorded By Document 12/06/23 08:17 GM Desktop 12/06/23 08:24 GM Document 12/20/23 08:21 GM Desktop 12/20/23 08:25 GM 12/06/23 12/20/23 08:17 08:21 Wound Center Nurse 2 #17- L DORSAL FOOT -Time 08:17 -Tunneling No -Undermining/Tunneling No -Circular Undermining No -Wound/Ulcer Outcome Healed- Epithelialized #10 Left Medial Ankle -Time 08:23 08:21 -Correct Patient Yes Yes -Correct Side, Site, Position Yes Yes -Correct Procedure Yes Yes -Procedure Performed Yes Yes -Type of Procedure Debridement Debridement -Clinical Debridement Subcutaneous Subcutaneous -Tissue Removed Subcutaneous Subcutaneous -Post Debridement (cm) - Length 3.5 3.5 -Post Debridement (cm) - Width 2.3 2.1 -Post Debridement (cm) - Depth 0.3 0.3 -Total Square (Post) (cm) 8.05 7.35 -Area of Debridement (cm) - Length 3.5 -Area of Debridement (cm) - Width 2.1 -Total Square (Area) (cm) 7.35 -Tunneling No No -Undermining/Tunneling No No -Circular Undermining No No -Wound/Ulcer Outcome Not Healed Not Healed -Ulcer Cleansing Rinsed/ Rinsed/ Irrigated with Irrigated with Saline Saline -Foul Odor after Cleansing No No -Bioengineered Tissue No No -Bleeding Controlled with Pressure Pressure -Treatment Response Procedure Procedure Tolerated Well Tolerated Well -Debridement - Subq, 1st 20sq cm Yes Yes Pain Scale: 0-10 Numeric Is Patient Pain Free? Yes Yes - Nurse 3 - General Ulcer D/C NN Start: 12/06/23 08:01 Freq: Status: Active Protocol: Activity Type Activity Date Activity User E-sign Co-sign Detail Recorded Client Recorded Date Recorded By Document 12/06/23 08:27 Desktop 12/06/23 08:28 12/06/23 08:27 Wound Care Center Nurse 3 #10 Left Medial Ankle -Ulcer Cleansing Not Cleansed -Foul Odor after Cleansing No -Primary Dressing Applied Fibracol Plus 4x4 -Primary Dressing Covered/Secured with Dry Gauze, Secured with Tape -Fibracol Plus 4x4 1 Pain Scale: 0-10 Numeric Is Patient Pain Free? Yes Teaching: Wound Center Dressing your wound w/hydroferra blue -Person Taught Patient -Teaching Method Discussion, Demonstration -Response to teaching Verbalize understanding WC - Visit Discharge Discharge Condition Stable Ambulatory Status Ambulatory Transportation Private Auto Medication Reconcilliation completed & Yes provided to patient/care provider Clinical Summary of Care Provided Yes Assessment/Plan Assessment/Plan (1) Ulcer of left lower extremity with fat layer exposed: CODE(S): L97.922 - Non-pressure chronic ulcer of unspecified part of left lower leg with fat layer exposed (2) PVD (peripheral vascular disease): CODE(S): I73.9 - Peripheral vascular disease, unspecified (3) Chronic venous insufficiency: CODE(S): I87.2 - Venous insufficiency (chronic) (peripheral) (4) Delayed wound healing: CODE(S): T14.8XXD - Other injury of unspecified body region, subsequent encounter PLAN: Plan Debridement done as documented above, procedure was well-tolerated. Continue 10 minutes Dakins soak daily, Fibracol, cover with Keramax care. Adaptic over left dorsal foot area. He was advised that he could change it more than once if he notes increased drainage. Continue mupirocin ointment as well. Continue use of compression stockings, leg elevation and exercise. Increased protein intake, protein supplements, zinc and vitamin C also recommended. Continue multivitamins. His questions were answered and he was advised to call with any further questions or concerns. Follow-up in 2 weeks. This note was generated with [employer] software. It may contain incorrect words, spelling, and punctuation that were not noted in checking the note before signing.
== END 2023-12-27 23:59 | disposition home or self-care (01) ==
LOC: WC 08:00
PROVIDERS: PCP Family Medicine; Referring Provider Family Medicine; Visit Provider Internal Medicine
DX: I73.9 Peripheral vascular disease, unspecified (principal); L97.322 Non-pressure chronic ulcer of left ankle with fat layer exposed; I87.2 Venous insufficiency (chronic) (peripheral); R60.0 Localized edema
CPT/HCPCS: 11042

== ENCOUNTER 2024-01-10 08:45 | Outpatient (RCR) | payer OTHER, SELFPAY ==
[2023-12-28 00:28] VITALS: BP 157/76; PULSE 92; RESP 18; TEMP 35.6; O2SAT 99; BMI 31.4
[2024-01-03 08:11] VITALS: BP 149/75; PULSE 91; RESP 18; TEMP 35.8; BMI 31.4
--- NOTE | 2024-01-03 08:37 | PN.PCM_ITS ---
History of Present Illness Date of Service: 01/03/24 Chief Complaint: ulcers to the left lower leg History of Wound: This is a 54-year-old male presents to wound healing center with a long-standing history of chronic venous insufficiency, chronic venous hypertension, lower extremity edema, lower extremity pain, and chronic left lower extremity ulcer. 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 He is currently wearing graduated compression stockings which are documented to be 20-30 mmHg compression and these are thigh high. He reports great compliance with use. He is also had previous arterial work-up with no intervention recommended by letter, his vascular surgeon. He denies taking nutritional supplementation. He saw dermatology and had a biopsy of the ulcer site. He also was previously treated by infectious disease for various contaminations and infections. He is not antibiotics at this time nor does he have any redness or odor coming from the wound. He denies fever, chill, nausea, vomiting, loss of appetite. 05/18/22: Mr. Jeronimo presents with a new right lower extremity ulceration. He states that this has been present for months and he has been trying to manage it at home without any significant improvement. Opened up months ago, no known precipitating factor. Has been applying wound dressings without any significant improvement. He reports increased drainage. Denies significant pain. No chills, fever or feeling of unwell. Progress of Wound: No new concerns at this time. Overall stable. Objective Data Objective Data Vital Signs: Vital Signs Temp Pulse Resp BP Pulse Ox 96.5 F L 91 18 149/75 H 99 01/03/24 08:11 01/03/24 08:11 01/03/24 08:11 01/03/24 08:11 12/28/23 00:28 Body Mass Index (BMI) 31.4 Charges/Coding Procedures Integumentary 111xxx-113xx: 11017 [place] subq tissue 20 sq cm/< Physical Exam Const alert, oriented x3 and no apparent distress General Appearance: cooperative and comfortable HEENT normocephalic Head and Scalp: normal to inspection, normocephalic and atraumatic Eyes EOMs intact bilaterally Neck full ROM and supple General: normal visual inspection Resp normal respiratory effort Effort and Inspection: able to speak in complete sentences Extremity normal to inspection General Extremity: edema Skin Wounds: wounds noted Neuro oriented x3 and CN's II-XII intact bilaterally Psych mental status grossly normal Appearance: grossly normal Debridement Note Debridement Note Wound debrided: Left medial ankle Type of Debridement: Excisional debridement Anesthesia Used: 5% Lidocaine Gel Depth: Down to and including healthy tissue and in the subcutaneous layer Percentage of wound debrided: 100 Instrument Used: 5mm curette Tissue Removed: Slough and devitalized tissue Severity: Fat Layer Exposed Bleeding Controlled with: Pressure Patient tolerated procedure: Patient tolerated procedure well Post-Debridement Measurements and Additional Note: Post-Debridement Measurements/Treatment - Nurse 1 - General Ulcer Assessment Start: 01/03/24 08:11 Freq: Status: Active Protocol: SHANTA Activity Type Activity Date Activity User E-sign Co-sign Detail Recorded Client Recorded Date Recorded By Document 01/03/24 08:11 RB Desktop 01/03/24 08:13 RB 01/03/24 08:11 WC - Today's Visit Information Type of service Follow-up Visit (Physician/CERTIFIED SURGICAL TECHNOLOGIST ) Arrival Mode Ambulatory Transfer Assistance None Patient Identification Verified (Name & Yes ) Patient Requires Transmission-Based No Precautions Height and Weight Body Mass Index (BMI) 31.4 BMI Classification Obese Vital Signs Temperature (97.8 F-99.1 F) 96.5 F L Temperature Source Temporal Pulse Rate (60-100) 91 Pulse Location Monitor Respiratory Rate (12-18) 18 Respiratory rate source Observation Blood Pressure (90/60-120/80) 149/75 H Blood Pressure Mean (mm Hg) 99 Source Monitor Position Semi-Fowlers Blood Pressure Location Left Arm History Since Last Visit- (Skip if this is Patient's initial visit) Have you changed medications since your No last visit? Any new allergies or adverse reactions No Had a fall/change in ADL's that may No increase risk of falls Signs or symptoms of abuse and/or No neglect since last visit Have you been in the hospital since your No last visit? Has dressing in place as prescribed Yes Has compression in place as prescribed Yes Has offloadiing in place as prescribed No Experienced any changes in pain level or No management Pain Scale: 0-10 Numeric Is Patient Pain Free? Yes - Nurse 1 - General Ulcer Measurement Start: 01/03/24 08:11 Freq: Status: Active Protocol: Activity Type Activity Date Activity User E-sign Co-sign Detail Recorded Client Recorded Date Recorded By Document 01/03/24 08:11 Desktop 01/03/24 08:13 01/03/24 08:11 Wound Center Nurse 1 #10 Left Medial Ankle -Combined with other wound No -Current Size (cm) - Length 0.1 -Current Size (cm) - Width 0.1 -Current Size (cm) - Depth 0.1 -Total Square Cm 0.01 -Tunneling No -Undermining/Tunneling No -Circular Undermining No -Exudate Amt Large -Exudate Type Serosanguineous -Wound Margin Distinct, Outline Attached -Granulation Amt Medium (34-66%) -Granulation Quality [place] -Slough/Fibrin Yes -Necrosis Amt Medium (34-66%) -Necrotic Tissue Type Adherent Slough -Structure Exposed N/A -Texture (Ara-wound Skin Appearance) Assessed, Scarring -Color (Ara-wound Skin Appearance) Assessed, Hemosiderin Staining -Temperature (Ara-wound Skin No Abnormality Appearance) (Pt Warm) -Tenderness on Palpation (Ara-wound No Skin Appearance) -Ulcer Cleansing Wound Cleanser -Foul Odor after Cleansing No -Anesthetic Used 5% Lidocaine Gel Lower Limb Edema Present Yes Left Calf (cm) 35.5 Left Ankle (cm) 23 WC - Nurse 2 - General Ulcer CM Notes Start: 01/03/24 08:11 Freq: Status: Active Protocol: Activity Type Activity Date Activity User E-sign Co-sign Detail Recorded Client Recorded Date Recorded By Document 01/03/24 08:26 Desktop 01/03/24 08:33 01/03/24 08:26 Wound Center Nurse 2 #10 Left Medial Ankle -Time 08:26 -Correct Patient Yes -Correct Side, Site, Position Yes -Correct Procedure Yes -Procedure Performed Yes -Type of Procedure Debridement -Clinical Debridement Subcutaneous -Tissue Removed Subcutaneous -Post Debridement (cm) - Length 4 -Post Debridement (cm) - Width 2 -Post Debridement (cm) - Depth 0.3 -Total Square (Post) (cm) 8 -Area of Debridement (cm) - Length 4 -Area of Debridement (cm) - Width 2 -Total Square (Area) (cm) 8 -Tunneling No -Undermining/Tunneling No -Circular Undermining No -Wound/Ulcer Outcome Not Healed -Ulcer Cleansing Rinsed/ Irrigated with Saline -Foul Odor after Cleansing No -Bioengineered Tissue No -Bleeding Controlled with Pressure -Treatment Response Procedure Tolerated Well -Debridement - Subq, 1st 20sq cm Yes Pain Scale: 0-10 Numeric Is Patient Pain Free? Yes - Nurse 3 - General Ulcer D/C NN Start: 01/03/24 08:11 Freq: Status: Active Protocol: Activity Type Activity Date Activity User E-sign Co-sign Detail Recorded Client Recorded Date Recorded By Document 01/03/24 08:33 Desktop 01/03/24 08:33 01/03/24 08:33 Wound Care Center Nurse 3 #10 Left Medial Ankle -Ulcer Cleansing Not Cleansed -Foul Odor after Cleansing No -Other Dressing abd dressing -Primary Dressing Covered/Secured with Secured with Tape Pain Scale: 0-10 Numeric Is Patient Pain Free? Yes WC - Visit Discharge Discharge Condition Stable Ambulatory Status Ambulatory Medication Reconcilliation completed & Yes provided to patient/care provider Clinical Summary of Care Provided Yes Assessment/Plan Assessment/Plan (1) Ulcer of left lower extremity with fat layer exposed: CODE(S): L97.922 - Non-pressure chronic ulcer of unspecified part of left lower leg with fat layer exposed (2) PVD (peripheral vascular disease): CODE(S): I73.9 - Peripheral vascular disease, unspecified (3) Chronic venous insufficiency: CODE(S): I87.2 - Venous insufficiency (chronic) (peripheral) (4) Delayed wound healing: CODE(S): T14.8XXD - Other injury of unspecified body region, subsequent encounter PLAN: Plan Debridement done as documented above, procedure was well-tolerated. Continue 10 minutes Dakins soak daily. Continue Fibracol, cover with Keramax care. Adaptic over left dorsal foot area. He was advised that he could change it more than once if he notes increased drainage. Continue mupirocin ointment as well. Continue use of compression stockings, leg elevation and exercise. Increased protein intake, protein supplements, zinc and vitamin C also recommended. Continue multivitamins. His questions were answered and he was advised to call with any further questions or concerns. Follow-up in 1 week. This note was generated with Dragon dictation software. It may contain incorrect words, spelling, and punctuation that were not noted in checking the note before signing.
[2024-01-10 08:44] VITALS: BP 145/78; PULSE 84; TEMP 36.2; BMI 31.4
--- NOTE | 2024-01-10 09:37 | PN.PCM_ITS ---
History of Present Illness Date of Service: 01/10/24 Chief Complaint: ulcers to the left lower leg History of Wound: This is a 54-year-old male presents to wound healing center with a long-standing history of chronic venous insufficiency, chronic venous hypertension, lower extremity edema, lower extremity pain, and chronic left lower extremity ulcer. 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 He is currently wearing graduated compression stockings which are documented to be 20-30 mmHg compression and these are thigh high. He reports great compliance with use. He is also had previous arterial work-up with no intervention recommended by letter, his vascular surgeon. He denies taking nutritional supplementation. He saw dermatology and had a biopsy of the ulcer site. He also was previously treated by infectious disease for various contaminations and infections. He is not antibiotics at this time nor does he have any redness or odor coming from the wound. He denies fever, chill, nausea, vomiting, loss of appetite. 05/18/22: Mr. Jeronimo presents with a new right lower extremity ulceration. He states that this has been present for months and he has been trying to manage it at home without any significant improvement. Opened up months ago, no known precipitating factor. Has been applying wound dressings without any significant improvement. He reports increased drainage. Denies significant pain. No chills, fever or feeling of unwell. Progress of Wound: No new concerns at this time. He denies increased drainage or pain. He states that he ran out of Fibracol and went back to using Aquacel just the other day Objective Data Objective Data Vital Signs: Vital Signs Temp Pulse Resp BP Pulse Ox O2 Del Method 97.2 F L 84 18 145/78 H 99 Room Air 01/10/24 08:44 01/10/24 08:44 01/03/24 08:11 01/10/24 08:44 12/28/23 00:28 01/10/24 08:44 Oxygen Delivery Method Room Air Body Mass Index (BMI) 31.4 Charges/Coding Procedures Integumentary 111xxx-113xx: 78186 [place] subq tissue 20 sq cm/< Physical Exam Const alert, oriented x3 and no apparent distress General Appearance: cooperative and comfortable HEENT normocephalic Head and Scalp: normal to inspection, normocephalic and atraumatic Eyes EOMs intact bilaterally Neck full ROM and supple General: normal visual inspection Resp normal respiratory effort Effort and Inspection: able to speak in complete sentences Extremity normal to inspection General Extremity: edema Skin Wounds: wounds noted Neuro oriented x3 and CN's II-XII intact bilaterally Psych mental status grossly normal Appearance: grossly normal Debridement Note Debridement Note Wound debrided: Left medial ankle Type of Debridement: Excisional debridement Anesthesia Used: 5% Lidocaine Gel Depth: Down to and including healthy tissue and in the subcutaneous layer Percentage of wound debrided: 100 Instrument Used: 5mm curette Tissue Removed: Slough and devitalized tissue Severity: Fat Layer Exposed Bleeding Controlled with: Pressure Patient tolerated procedure: Patient tolerated procedure well Post-Debridement Measurements and Additional Note: Post-Debridement Measurements/Treatment - Nurse 1 - General Ulcer Assessment Start: 01/03/24 08:11 Freq: Status: Active Protocol: SHANTA Activity Type Activity Date Activity User E-sign Co-sign Detail Recorded Client Recorded Date Recorded By Document 01/03/24 08:11 RB Desktop 01/03/24 08:13 RB Document 01/10/24 08:44 MT Desktop 01/10/24 08:50 MT 01/03/24 01/10/24 08:11 08:44 - Today's Visit Information Type of service Follow-up Visit Follow-up Visit (Physician/CONTACT LENS TECHNICIAN (Physician/CONTACT LENS TECHNICIAN ) ) Arrival Mode Ambulatory Ambulatory Transfer Assistance None Accompanied by self Patient Identification Verified (Name & Yes Yes ) Patient Requires Transmission-Based No Precautions Height and Weight Body Mass Index (BMI) 31.4 31.4 BMI Classification Obese Obese Vital Signs Temperature (97.8 F-99.1 F) 96.5 F L 97.2 F L Temperature Source Temporal Temporal Pulse Rate (60-100) 91 84 Pulse Location Monitor Monitor Respiratory Rate (12-18) 18 Respiratory rate source Observation Observation Oxygen Delivery Method Room Air Blood Pressure (90/60-120/80) 149/75 H 145/78 H Blood Pressure Mean (mm Hg) 99 100 Source Monitor Monitor Position Semi-Fowlers Sitting Blood Pressure Location Left Arm Left Arm History Since Last Visit- (Skip if this is Patient's initial visit) Have you changed medications since your No last visit? Any new allergies or adverse reactions No Had a fall/change in ADL's that may No increase risk of falls Signs or symptoms of abuse and/or No neglect since last visit Have you been in the hospital since your No last visit? Has dressing in place as prescribed Yes Has compression in place as prescribed Yes N/A Has offloadiing in place as prescribed No N/A Experienced any changes in pain level or No management Left Footwear Regular Shoe Right Footwear Regular Shoe Pain Scale: 0-10 Numeric Is Patient Pain Free? Yes Yes WC - Nurse 1 - General Ulcer Measurement Start: 01/03/24 08:11 Freq: Status: Active Protocol: Activity Type Activity Date Activity User E-sign Co-sign Detail Recorded Client Recorded Date Recorded By Document 01/03/24 08:11 RB Desktop 01/03/24 08:13 RB Document 01/10/24 08:44 MT Desktop 01/10/24 08:50 MT 01/03/24 01/10/24 08:11 08:44 Wound Center Nurse 1 #10 Left Medial Ankle -Combined with other wound No No -Current Size (cm) - Length 0.1 4 -Current Size (cm) - Width 0.1 2 -Current Size (cm) - Depth 0.1 0.2 -Total Square Cm 0.01 8 -Tunneling No No -Undermining/Tunneling No No -Circular Undermining No No -Exudate Amt Large Medium -Exudate Type Serosanguineous Serosanguineous -Wound Margin Distinct, Distinct, Outline Outline Attached Attached -Granulation Amt Medium (34-66%) Medium (34-66%) -Granulation Quality [place] -Slough/Fibrin Yes Yes -Necrosis Amt Medium (34-66%) Medium (34-66%) -Necrotic Tissue Type Adherent Slough Adherent Slough -Structure Exposed N/A N/A -Texture (Ara-wound Skin Appearance) Assessed, Assessed, Scarring Scarring -Moisture (Ara-wound Skin Appearance) Assessed -Color (Ara-wound Skin Appearance) Assessed, Assessed Hemosiderin Staining -Temperature (Ara-wound Skin No Abnormality No Abnormality Appearance) (Pt Warm) (Pt Warm) -Tenderness on Palpation (Ara-wound No No Skin Appearance) -Ulcer Cleansing Wound Cleanser Wound Cleanser -Foul Odor after Cleansing No No -Anesthetic Used 5% Lidocaine 5% Lidocaine Gel Gel Lower Limb Edema Present Yes Yes Left Calf (cm) 35.5 33.5 Left Ankle (cm) 23 23 WC - Nurse 2 - General Ulcer CM Notes Start: 01/03/24 08:11 Freq: Status: Active Protocol: Activity Type Activity Date Activity User E-sign Co-sign Detail Recorded Client Recorded Date Recorded By Document 01/03/24 08:26 Desktop 01/03/24 08:33 GM Document 01/10/24 09:10 [place] [employer] 01/10/24 09:15 GM 01/03/24 01/10/24 08:26 09:10 Wound Center Nurse 2 #10 Left Medial Ankle -Time 08:26 09:10 -Correct Patient Yes Yes -Correct Side, Site, Position Yes Yes -Correct Procedure Yes Yes -Procedure Performed Yes Yes -Type of Procedure Debridement Debridement -Clinical Debridement Subcutaneous Subcutaneous -Tissue Removed Subcutaneous Subcutaneous -Post Debridement (cm) - Length 4 3.8 -Post Debridement (cm) - Width 2 2 -Post Debridement (cm) - Depth 0.3 0.3 -Total Square (Post) (cm) 8 7.6 -Area of Debridement (cm) - Length 4 3.8 -Area of Debridement (cm) - Width 2 2 -Total Square (Area) (cm) 8 7.6 -Tunneling No No -Undermining/Tunneling No No -Circular Undermining No No -Wound/Ulcer Outcome Not Healed Not Healed -Ulcer Cleansing Rinsed/ Rinsed/ Irrigated with Irrigated with Saline Saline -Foul Odor after Cleansing No No -Bioengineered Tissue No No -Bleeding Controlled with Pressure Pressure -Treatment Response Procedure Procedure Tolerated Well Tolerated Well -Debridement - Subq, 1st 20sq cm Yes Yes Pain Scale: 0-10 Numeric Is Patient Pain Free? Yes Yes - Nurse 3 - General Ulcer D/C NN Start: 01/03/24 08:11 Freq: Status: Active Protocol: Activity Type Activity Date Activity User E-sign Co-sign Detail Recorded Client Recorded Date Recorded By Document 01/03/24 08:33 Desktop 01/03/24 08:33 GM Document 01/10/24 09:18 Desktop 01/10/24 09:18 GM 01/03/24 01/10/24 08:33 09:18 Wound Care Center Nurse 3 #10 Left Medial Ankle -Ulcer Cleansing Not Cleansed Not Cleansed -Foul Odor after Cleansing No No -Primary Dressing Applied Fibracol Plus 4x4,NonAdherent Contact Layer -Other Dressing abd dressing -Primary Dressing Covered/Secured with Secured with Dry Gauze, Tape Secured with Tape -Fibracol Plus 4x4 1 Pain Scale: 0-10 Numeric Is Patient Pain Free? Yes Yes WC - Visit Discharge Discharge Condition Stable Stable Ambulatory Status Ambulatory Ambulatory Transportation Private Auto Medication Reconcilliation completed & Yes Yes provided to patient/care provider Clinical Summary of Care Provided Yes Yes Assessment/Plan Assessment/Plan (1) Ulcer of left lower extremity with fat layer exposed: CODE(S): L97.922 - Non-pressure chronic ulcer of unspecified part of left lower leg with fat layer exposed (2) PVD (peripheral vascular disease): CODE(S): I73.9 - Peripheral vascular disease, unspecified (3) Chronic venous insufficiency: CODE(S): I87.2 - Venous insufficiency (chronic) (peripheral) (4) Delayed wound healing: CODE(S): T14.8XXD - Other injury of unspecified body region, subsequent encounter PLAN: Plan Debridement done as documented above, procedure was well-tolerated. Stable. Continue 10 minutes Dakins soak daily. Continue Fibracol, cover with Keramax care. Adaptic over left dorsal foot area. He was advised that he could change it more than once if he notes increased drainage. Continue mupirocin ointment as well. Continue use of compression stockings, leg elevation and exercise. Increased protein intake, protein supplements, zinc and vitamin C also recommended. Continue multivitamins. Follows up with his PCP at the [facility]. He states that he had labs done in September and he is numbers were okay. History of borderline diabetes. Will request records. His questions were answered and he was advised to call with any further questions or concerns. Follow-up in 1 week. This note was generated with [employer] dictation software. It may contain incorrect words, spelling, and punctuation that were not noted in checking the note before signing.
== END 2024-01-27 23:59 | disposition home or self-care (01) ==
LOC: WC 08:45
PROVIDERS: PCP Family Medicine; Referring Provider Family Medicine; Visit Provider Internal Medicine
DX: I73.9 Peripheral vascular disease, unspecified (principal); L97.322 Non-pressure chronic ulcer of left ankle with fat layer exposed; I87.2 Venous insufficiency (chronic) (peripheral); R60.0 Localized edema
CPT/HCPCS: 11042

== ENCOUNTER 2024-02-14 08:00 | Outpatient (RCR) | payer OTHER, SELFPAY ==
[2024-01-28 00:22] VITALS: BP 145/78; PULSE 84; RESP 18; TEMP 36.2; O2SAT 99; BMI 31.4
[2024-01-31 08:00] VITALS: BP 153/87; PULSE 101; RESP 18; TEMP 36.3; BMI 31.4
--- NOTE | 2024-01-31 08:40 | PN.PCM_ITS ---
History of Present Illness Date of Service: 01/31/24 Chief Complaint: ulcers to the left lower leg History of Wound: This is a 54-year-old male presents to wound healing center with a long-standing history of chronic venous insufficiency, chronic venous hypertension, lower extremity edema, lower extremity pain, and chronic left lower extremity ulcer. 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 He is currently wearing graduated compression stockings which are documented to be 20-30 mmHg compression and these are thigh high. He reports great compliance with use. He is also had previous arterial work-up with no intervention recommended by letter, his vascular surgeon. He denies taking nutritional supplementation. He saw dermatology and had a biopsy of the ulcer site. He also was previously treated by infectious disease for various contaminations and infections. He is not antibiotics at this time nor does he have any redness or odor coming from the wound. He denies fever, chill, nausea, vomiting, loss of appetite. 05/18/22: Mr. Jeronimo presents with a new right lower extremity ulceration. He states that this has been present for months and he has been trying to manage it at home without any significant improvement. Opened up months ago, no known precipitating factor. Has been applying wound dressings without any significant improvement. He reports increased drainage. Denies significant pain. No chills, fever or feeling of unwell. Progress of Wound: No acute concerns at this time. Stable Ulcer. Objective Data Objective Data Vital Signs: Vital Signs Temp Pulse Resp BP Pulse Ox O2 Del Method 97.3 F L 101 H 18 153/87 H 99 Room Air 01/31/24 08:00 01/31/24 08:00 01/31/24 08:00 01/31/24 08:00 01/28/24 00:22 01/31/24 08:00 Oxygen Delivery Method Room Air Body Mass Index (BMI) 31.4 Charges/Coding Procedures Integumentary 111xxx-113xx: 53255 Lakeisha subq tissue 20 sq cm/< Physical Exam Const alert, oriented x3 and no apparent distress General Appearance: cooperative and comfortable HEENT normocephalic Head and Scalp: normal to inspection, normocephalic and atraumatic Eyes EOMs intact bilaterally Neck full ROM and supple General: normal visual inspection Resp normal respiratory effort Effort and Inspection: able to speak in complete sentences Extremity normal to inspection General Extremity: edema Skin Wounds: wounds noted Neuro oriented x3 and CN's II-XII intact bilaterally Psych mental status grossly normal Appearance: grossly normal Debridement Note Debridement Note Wound debrided: Left medial ankle Type of Debridement: Excisional debridement Anesthesia Used: 5% Lidocaine Gel Depth: Down to and including healthy tissue and in the subcutaneous layer Percentage of wound debrided: 100 Instrument Used: 5mm curette Tissue Removed: Slough and devitalized tissue Severity: Fat Layer Exposed Bleeding Controlled with: Pressure Patient tolerated procedure: Patient tolerated procedure well Post-Debridement Measurements and Additional Note: Post-Debridement Measurements/Treatment WC - Nurse 1 - General Ulcer Assessment Start: 01/31/24 08:00 Freq: Status: Active Protocol: SHANTA Activity Type Activity Date Activity User E-sign Co-sign Detail Recorded Client Recorded Date Recorded By Document 01/31/24 08:00 KW Desktop 01/31/24 08:06 KW 01/31/24 08:00 WC - Today's Visit Information Type of service Follow-up Visit (Physician/UROGYNAECOLOGIST ) Arrival Mode Ambulatory Transfer Assistance None Patient Identification Verified (Name & Yes ) Height and Weight Body Mass Index (BMI) 31.4 BMI Classification Obese Vital Signs Temperature (97.8 F-99.1 F) 97.3 F L Temperature Source Temporal Pulse Rate (60-100) 101 H Pulse Location Monitor Respiratory Rate (12-18) 18 Respiratory rate source Observation Oxygen Delivery Method Room Air Blood Pressure (90/60-120/80) 153/87 H Blood Pressure Mean (mm Hg) 109 Source Monitor Position Sitting Blood Pressure Location Left Arm History Since Last Visit- (Skip if this is Patient's initial visit) Have you changed medications since your No last visit? Any new allergies or adverse reactions No Had a fall/change in ADL's that may No increase risk of falls Signs or symptoms of abuse and/or No neglect since last visit Have you been in the hospital since your No last visit? Has dressing in place as prescribed Yes Has compression in place as prescribed Yes Has offloadiing in place as prescribed N/A Experienced any changes in pain level or No management Pain Scale: 0-10 Numeric Is Patient Pain Free? Yes - Nurse 1 - General Ulcer Measurement Start: 01/31/24 08:00 Freq: Status: Active Protocol: Activity Type Activity Date Activity User E-sign Co-sign Detail Recorded Client Recorded Date Recorded By Document 01/31/24 08:00 Desktop 01/31/24 08:06 01/31/24 08:00 Wound Center Nurse 1 #10 Left Medial Ankle -Current Size (cm) - Length 3.6 -Current Size (cm) - Width 2 -Current Size (cm) - Depth 0.3 -Total Square Cm 7.2 -Photo Taken No -Epithelialization None Present -Tunneling No -Undermining/Tunneling No -Circular Undermining No -Exudate Amt Large -Exudate Type Serosanguineous -Wound Margin Distinct, Outline Attached -Granulation Amt Large (67-100%) -Granulation Quality Red -Slough/Fibrin Yes -Structure Exposed N/A -Texture (Ara-wound Skin Appearance) Assessed -Moisture (Ara-wound Skin Appearance) Assessed,Dry/ Scaly -Color (Ara-wound Skin Appearance) Assessed -Temperature (Ara-wound Skin No Abnormality Appearance) (Pt Warm) -Ulcer Cleansing Soap and Water -Foul Odor after Cleansing No -Anesthetic Used 5% Lidocaine Gel WC - Nurse 2 - General Ulcer CM Notes Start: 01/31/24 08:00 Freq: Status: Active Protocol: Activity Type Activity Date Activity User E-sign Co-sign Detail Recorded Client Recorded Date Recorded By Document 01/31/24 08:32 Desktop 01/31/24 08:34 01/31/24 08:32 Wound Center Nurse 2 -Time 08:33 -Correct Patient Yes -Correct Side, Site, Position Yes -Correct Procedure Yes -Procedure Performed Yes -Type of Procedure Debridement -Clinical Debridement Subcutaneous -Tissue Removed Subcutaneous -Post Debridement (cm) - Length 4.0 -Post Debridement (cm) - Width 2.0 -Post Debridement (cm) - Depth 0.3 -Total Square (Post) (cm) 8.00 -Area of Debridement (cm) - Length 4.0 -Area of Debridement (cm) - Width 2.0 -Total Square (Area) (cm) 8.00 -Undermining/Tunneling No -Circular Undermining No -Wound/Ulcer Outcome Not Healed -Ulcer Cleansing Rinsed/ Irrigated with Saline -Foul Odor after Cleansing No -Bioengineered Tissue No -Bleeding Controlled with Pressure -Treatment Response Procedure Tolerated Well -Debridement - Subq, 1st 20sq cm Yes Pain Scale: 0-10 Numeric Is Patient Pain Free? Yes - Nurse 3 - General Ulcer D/C NN Start: 01/31/24 08:00 Freq: Status: Active Protocol: Activity Type Activity Date Activity User E-sign Co-sign Detail Recorded Client Recorded Date Recorded By Document 01/31/24 08:39 GM Desktop 01/31/24 08:40 GM 01/31/24 08:39 Wound Care Center Nurse 3 #10 Left Medial Ankle -Ulcer Cleansing Not Cleansed -Primary Dressing Covered/Secured with Dry Gauze, Secured with Tape Pain Scale: 0-10 Numeric Is Patient Pain Free? Yes WC - Visit Discharge Discharge Condition Stable Ambulatory Status Ambulatory Transportation Private Auto Clinical Summary of Care Provided Yes Assessment/Plan Assessment/Plan (1) Ulcer of left lower extremity with fat layer exposed: CODE(S): L97.922 - Non-pressure chronic ulcer of unspecified part of left lower leg with fat layer exposed (2) PVD (peripheral vascular disease): CODE(S): I73.9 - Peripheral vascular disease, unspecified (3) Chronic venous insufficiency: CODE(S): I87.2 - Venous insufficiency (chronic) (peripheral) (4) Delayed wound healing: CODE(S): T14.8XXD - Other injury of unspecified body region, subsequent encounter PLAN: Plan Debridement done as documented above, procedure was well-tolerated. Stable. Continue 10 minutes Dakins soak daily. Continue Fibracol, cover with Keramax care. Adaptic over left dorsal foot area. He was advised that he could change it more than once if he notes increased drainage. Continue mupirocin ointment as well. Continue use of compression stockings, leg elevation and exercise. Increased protein intake, protein supplements, zinc and vitamin D. Consider continuing Fibracol for another month and if no significant change, will revert to Aquacel extra. His questions were answered and he was advised to call with any further questions or concerns. Follow-up in 2 weeks. This note was generated with [employer] dictation software. It may contain incorrect words, spelling, and punctuation that were not noted in checking the note before signing.
--- NOTE | 2024-02-04 13:11 | WC ---
Patient called in asking for a refill on his bactroban ointment. Notified Dr Amaya on backline letting her know of update and she will call the prescription in electronically to his pharmacy. Called patient and had to leave a voicemail that script will be called in. If he had any other questions or concerns to call the wound center back.
[2024-02-14 08:15] VITALS: BP 148/81; PULSE 86; RESP 18; TEMP 36.6; BMI 31.4
--- NOTE | 2024-02-14 10:07 | PN.PCM_ITS ---
History of Present Illness Date of Service: 02/14/24 Chief Complaint: ulcers to the left lower leg History of Wound: This is a 54-year-old male presents to wound healing center with a long-standing history of chronic venous insufficiency, chronic venous hypertension, lower extremity edema, lower extremity pain, and chronic left lower extremity ulcer. 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 He is currently wearing graduated compression stockings which are documented to be 20-30 mmHg compression and these are thigh high. He reports great compliance with use. He is also had previous arterial work-up with no intervention recommended by letter, his vascular surgeon. He denies taking nutritional supplementation. He saw dermatology and had a biopsy of the ulcer site. He also was previously treated by infectious disease for various contaminations and infections. He is not antibiotics at this time nor does he have any redness or odor coming from the wound. He denies fever, chill, nausea, vomiting, loss of appetite. 05/18/22: Mr. Jeronimo presents with a new right lower extremity ulceration. He states that this has been present for months and he has been trying to manage it at home without any significant improvement. Opened up months ago, no known precipitating factor. Has been applying wound dressings without any significant improvement. He reports increased drainage. Denies significant pain. No chills, fever or feeling of unwell. Progress of Wound: No acute concerns at this time. Stable Ulcer. Objective Data Objective Data Vital Signs: Vital Signs Temp Pulse Resp BP Pulse Ox O2 Del Method 97.8 F 86 18 148/81 H 99 Room Air 02/14/24 08:15 02/14/24 08:15 02/14/24 08:15 02/14/24 08:15 01/28/24 00:22 01/31/24 08:00 Oxygen Delivery Method Room Air Body Mass Index (BMI) 31.4 Charges/Coding Procedures Integumentary 111xxx-113xx: 82075 Lakeisha subq tissue 20 sq cm/< Physical Exam Const alert, oriented x3 and no apparent distress General Appearance: cooperative and comfortable HEENT normocephalic Head and Scalp: normal to inspection, normocephalic and atraumatic Eyes EOMs intact bilaterally Neck full ROM and supple General: normal visual inspection Resp normal respiratory effort Effort and Inspection: able to speak in complete sentences Extremity normal to inspection General Extremity: edema Skin Wounds: wounds noted Neuro oriented x3 and CN's II-XII intact bilaterally Psych mental status grossly normal Appearance: grossly normal Debridement Note Debridement Note Wound debrided: Left medial ankle Type of Debridement: Excisional debridement Anesthesia Used: 5% Lidocaine Gel Depth: Down to and including healthy tissue and in the subcutaneous layer Percentage of wound debrided: 100 Instrument Used: 5mm curette Tissue Removed: Slough and devitalized tissue Severity: Fat Layer Exposed Bleeding Controlled with: Pressure Patient tolerated procedure: Patient tolerated procedure well Post-Debridement Measurements and Additional Note: Post-Debridement Measurements/Treatment - Nurse 1 - General Ulcer Assessment Start: 01/31/24 08:00 Freq: Status: Active Protocol: [email or web address] Activity Type Activity Date Activity User E-sign Co-sign Detail Recorded Client Recorded Date Recorded By Document 01/31/24 08:00 KW Desktop 01/31/24 08:06 KW Document 02/14/24 08:15 [id number] 02/14/24 08:17 RB 01/31/24 02/14/24 08:00 08:15 - Today's Visit Information Type of service Follow-up Visit Follow-up Visit (Physician/VP GLOBAL (Physician/VP GLOBAL ) ) Arrival Mode Ambulatory Ambulatory Transfer Assistance None None Patient Identification Verified (Name & Yes Yes ) Patient Requires Transmission-Based No Precautions Height and Weight Body Mass Index (BMI) 31.4 31.4 BMI Classification Obese Obese Vital Signs Temperature (97.8 F-99.1 F) 97.3 F L 97.8 F Temperature Source Temporal Temporal Pulse Rate (60-100) 101 H 86 Pulse Location Monitor Monitor Respiratory Rate (12-18) 18 18 Respiratory rate source Observation Observation Oxygen Delivery Method Room Air Blood Pressure (90/60-120/80) 153/87 H 148/81 H Blood Pressure Mean (mm Hg) 109 103 Source Monitor Monitor Position Sitting Semi-Fowlers Blood Pressure Location Left Arm Left Arm History Since Last Visit- (Skip if this is Patient's initial visit) Have you changed medications since your No No last visit? Any new allergies or adverse reactions No No Had a fall/change in ADL's that may No No increase risk of falls Signs or symptoms of abuse and/or No No neglect since last visit Have you been in the hospital since your No No last visit? Has dressing in place as prescribed Yes Yes Has compression in place as prescribed Yes Yes Has offloadiing in place as prescribed N/A No Experienced any changes in pain level or No No management Pain Scale: 0-10 Numeric Is Patient Pain Free? Yes Yes - Nurse 1 - General Ulcer Measurement Start: 01/31/24 08:00 Freq: Status: Active Protocol: Activity Type Activity Date Activity User E-sign Co-sign Detail Recorded Client Recorded Date Recorded By Document 01/31/24 08:00 KW Desktop 01/31/24 08:06 KW Document 02/14/24 08:15 RB [id number] 02/14/24 08:17 RB 01/31/24 02/14/24 08:00 08:15 Wound Center Nurse 1 #10 Left Medial Ankle -Combined with other wound No -Current Size (cm) - Length 3.6 3.5 -Current Size (cm) - Width 2 1.8 -Current Size (cm) - Depth 0.3 0.3 -Total Square Cm 7.2 6.30 -Photo Taken No -Epithelialization None Present -Tunneling No No -Undermining/Tunneling No No -Circular Undermining No No -Exudate Amt Large Medium -Exudate Type Serosanguineous Serosanguineous -Wound Margin Distinct, Thickened & Outline Rolled Under Attached -Granulation Amt Large (67-100%) Medium (34-66%) -Granulation Quality Red [place] -Slough/Fibrin Yes Yes -Necrosis Amt Medium (34-66%) -Necrotic Tissue Type Adherent Slough -Structure Exposed N/A N/A -Texture (Ara-wound Skin Appearance) Assessed Assessed, Scarring -Moisture (Ara-wound Skin Appearance) Assessed,Dry/ Dry/Scaly Scaly -Color (Ara-wound Skin Appearance) Assessed Assessed -Temperature (Ara-wound Skin No Abnormality No Abnormality Appearance) (Pt Warm) (Pt Warm) -Tenderness on Palpation (Ara-wound No Skin Appearance) -Ulcer Cleansing Soap and Water Wound Cleanser -Foul Odor after Cleansing No No -Anesthetic Used 5% Lidocaine 5% Lidocaine Gel Gel Lower Limb Edema Present Yes Left Calf (cm) 36.5 Left Ankle (cm) 23 - Nurse 2 - General Ulcer CM Notes Start: 01/31/24 08:00 Freq: Status: Active Protocol: Activity Type Activity Date Activity User E-sign Co-sign Detail Recorded Client Recorded Date Recorded By Document 01/31/24 08:32 Desktop 01/31/24 08:34 Document 02/14/24 08:28 Desktop 02/14/24 08:30 01/31/24 02/14/24 08:32 08:28 Wound Center Nurse 2 #10 Left Medial Ankle -Time 08:33 08:29 -Correct Patient Yes Yes -Correct Side, Site, Position Yes Yes -Correct Procedure Yes Yes -Procedure Performed Yes Yes -Type of Procedure Debridement Debridement -Clinical Debridement Subcutaneous Subcutaneous -Tissue Removed Subcutaneous Subcutaneous -Post Debridement (cm) - Length 4.0 3.5 -Post Debridement (cm) - Width 2.0 2.0 -Post Debridement (cm) - Depth 0.3 0.2 -Total Square (Post) (cm) 8.00 7.00 -Area of Debridement (cm) - Length 4.0 3.5 -Area of Debridement (cm) - Width 2.0 2.0 -Total Square (Area) (cm) 8.00 7.00 -Tunneling No -Undermining/Tunneling No No -Circular Undermining No No -Wound/Ulcer Outcome Not Healed Not Healed -Ulcer Cleansing Rinsed/ Rinsed/ Irrigated with Irrigated with Saline Saline -Foul Odor after Cleansing No No -Bioengineered Tissue No No -Bleeding Controlled with Pressure Pressure -Treatment Response Procedure Procedure Tolerated Well Tolerated Well -Debridement - Subq, 1st 20sq cm Yes Yes Pain Scale: 0-10 Numeric Is Patient Pain Free? Yes Yes - Nurse 3 - General Ulcer D/C NN Start: 01/31/24 08:00 Freq: Status: Active Protocol: Activity Type Activity Date Activity User E-sign Co-sign Detail Recorded Client Recorded Date Recorded By Document 01/31/24 08:39 Desktop 01/31/24 08:40 Document 02/14/24 08:36 Desktop 02/14/24 08:37 01/31/24 02/14/24 08:39 08:36 Wound Care Center Nurse 3 #10 Left Medial Ankle -Ulcer Cleansing Not Cleansed Not Cleansed -Foul Odor after Cleansing No -Primary Dressing Applied Other -Other Dressing Used his own products, fibracol and Karamax -Primary Dressing Covered/Secured with Dry Gauze, Secured with Secured with Tape Tape Pain Scale: 0-10 Numeric Is Patient Pain Free? Yes Yes WC - Visit Discharge Discharge Condition Stable Stable Ambulatory Status Ambulatory Ambulatory Transportation Private Auto Private Auto Clinical Summary of Care Provided Yes Yes Assessment/Plan Assessment/Plan (1) Ulcer of left lower extremity with fat layer exposed: CODE(S): L97.922 - Non-pressure chronic ulcer of unspecified part of left lower leg with fat layer exposed (2) PVD (peripheral vascular disease): CODE(S): I73.9 - Peripheral vascular disease, unspecified (3) Chronic venous insufficiency: CODE(S): I87.2 - Venous insufficiency (chronic) (peripheral) (4) Delayed wound healing: CODE(S): T14.8XXD - Other injury of unspecified body region, subsequent encounter PLAN: Plan Debridement done as documented above, procedure was well-tolerated. Stable. Continue 10 minutes Dakins soak daily. Continue Fibracol, cover with Keramax care. He was advised that he could change it more than once if he notes increased drainage. Continue mupirocin ointment as well. Continue use of compression stockings, leg elevation and exercise. Increased protein intake, protein supplements, zinc and vitamin D. His questions were answered and he was advised to call with any further questions or concerns. Follow-up in 2 weeks. This note was generated with [employer] dictation software. It may contain incorrect words, spelling, and punctuation that were not noted in checking the note before signing.
== END 2024-02-26 23:59 | disposition home or self-care (01) ==
LOC: WC 08:00
PROVIDERS: PCP Family Medicine; Referring Provider Family Medicine; Visit Provider Internal Medicine
DX: I73.9 Peripheral vascular disease, unspecified (principal); L97.322 Non-pressure chronic ulcer of left ankle with fat layer exposed; I87.2 Venous insufficiency (chronic) (peripheral); R60.0 Localized edema
CPT/HCPCS: 11042

== ENCOUNTER 2024-03-27 08:00 | Outpatient (RCR) | payer OTHER, SELFPAY ==
[2024-02-27 00:18] VITALS: BP 148/81; PULSE 86; RESP 18; TEMP 36.6; O2SAT 99; BMI 31.4
[2024-02-28 08:12] VITALS: BP 144/81; PULSE 89; RESP 15; TEMP 35.6; BMI 31.4
--- NOTE | 2024-02-28 08:27 | PCM.WC.PN ---
History of Present Illness Date of Service: 02/28/24 Chief Complaint: ulcers to the left lower leg History of Wound: This is a 54-year-old male presents to wound healing center with a long-standing history of chronic venous insufficiency, chronic venous hypertension, lower extremity edema, lower extremity pain, and chronic left lower extremity ulcer. 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 He is currently wearing graduated compression stockings which are documented to be 20-30 mmHg compression and these are thigh high. He reports great compliance with use. He is also had previous arterial work-up with no intervention recommended by letter, his vascular surgeon. He denies taking nutritional supplementation. He saw dermatology and had a biopsy of the ulcer site. He also was previously treated by infectious disease for various contaminations and infections. He is not antibiotics at this time nor does he have any redness or odor coming from the wound. He denies fever, chill, nausea, vomiting, loss of appetite. 05/18/22: Mr. Jeronimo presents with a new right lower extremity ulceration. He states that this has been present for months and he has been trying to manage it at home without any significant improvement. Opened up months ago, no known precipitating factor. Has been applying wound dressings without any significant improvement. He reports increased drainage. Denies significant pain. No chills, fever or feeling of unwell. Progress of Wound: Stable. He denies any significant drainage or pain. Has been doing dressing changes as recommended. Worsening lower extremity edema, he states that he has been running around a lot Objective Data Objective Data Vital Signs: Vital Signs Temp Pulse Resp BP Pulse Ox 96.0 F L 89 15 144/81 H 99 02/28/24 08:12 02/28/24 08:12 02/28/24 08:12 02/28/24 08:12 02/27/24 00:18 Body Mass Index (BMI) 31.4 Charges/Coding Procedures Integumentary 111xxx-113xx: 57897 Lakeisha subq tissue 20 sq cm/< Physical Exam Const alert, oriented x3 and no apparent distress General Appearance: cooperative and comfortable HEENT normocephalic Head and Scalp: normal to inspection, normocephalic and atraumatic Eyes EOMs intact bilaterally Neck full ROM and supple General: normal visual inspection Resp normal respiratory effort Effort and Inspection: able to speak in complete sentences Extremity normal to inspection General Extremity: edema Skin Wounds: wounds noted Neuro oriented x3 and CN's II-XII intact bilaterally Psych mental status grossly normal Appearance: grossly normal Debridement Note Debridement Note Wound debrided: Left medial ankle Type of Debridement: Excisional debridement Anesthesia Used: 5% Lidocaine Gel Depth: Down to and including healthy tissue and in the subcutaneous layer Percentage of wound debrided: 100 Instrument Used: 5mm curette Tissue Removed: Slough and devitalized tissue Severity: Fat Layer Exposed Bleeding Controlled with: Pressure Patient tolerated procedure: Patient tolerated procedure well Post-Debridement Measurements and Additional Note: Post-Debridement Measurements/Treatment - Nurse 1 - General Ulcer Assessment Start: 02/28/24 08:12 Freq: Status: Active Protocol: [email or web address] Activity Type Activity Date Activity User E-sign Co-sign Detail Recorded Client Recorded Date Recorded By Document 02/28/24 08:12 ML Desktop 02/28/24 08:14 ML 02/28/24 08:12 - Today's Visit Information Type of service Follow-up Visit (Physician/MOLD ENGRAVER ) Arrival Mode Ambulatory Transfer Assistance None Patient Identification Verified (Name & Yes ) Patient Requires Transmission-Based No Precautions Height and Weight Body Mass Index (BMI) 31.4 BMI Classification Obese Vital Signs Temperature (97.8 F-99.1 F) 96.0 F L Temperature Source Temporal Pulse Rate (60-100) 89 Pulse Location Monitor Respiratory Rate (12-18) 15 Respiratory rate source Observation Blood Pressure (90/60-120/80) 144/81 H Blood Pressure Mean (mm Hg) 102 Source Monitor Position Sitting Blood Pressure Location Right Arm History Since Last Visit- (Skip if this is Patient's initial visit) Have you changed medications since your No last visit? Any new allergies or adverse reactions No Had a fall/change in ADL's that may No increase risk of falls Signs or symptoms of abuse and/or No neglect since last visit Have you been in the hospital since your No last visit? Has dressing in place as prescribed Yes Has compression in place as prescribed Yes Has offloadiing in place as prescribed N/A Experienced any changes in pain level or No management Left Footwear Regular Shoe Right Footwear Regular Shoe Pain Scale: 0-10 Numeric Is Patient Pain Free? Yes - Nurse 1 - General Ulcer Measurement Start: 02/28/24 08:12 Freq: Status: Active Protocol: Activity Type Activity Date Activity User E-sign Co-sign Detail Recorded Client Recorded Date Recorded By Document 02/28/24 08:12 ML Desktop 02/28/24 08:14 ML 02/28/24 08:12 Wound Center Nurse 1 #10 Left Medial Ankle -Current Size (cm) - Length 4 -Current Size (cm) - Width 2 -Current Size (cm) - Depth 0.3 -Total Square Cm 8 -Epithelialization Medium 34-66% -Exudate Amt Medium -Exudate Type Serosanguineous -Wound Margin Distinct, Outline Attached -Granulation Amt Medium (34-66%) -Slough/Fibrin Yes -Necrosis Amt Medium (34-66%) -Texture (Ara-wound Skin Appearance) No Abnormality -Moisture (Ara-wound Skin Appearance) No Abnormality -Color (Ara-wound Skin Appearance) No Abnormality -Temperature (Ara-wound Skin No Abnormality Appearance) (Pt Warm) -Tenderness on Palpation (Ara-wound No Skin Appearance) -Ulcer Cleansing Rinsed/ Irrigated with Saline -Anesthetic Used 5% Lidocaine Gel WC - Nurse 2 - General Ulcer CM Notes Start: 02/28/24 08:12 Freq: Status: Active Protocol: Activity Type Activity Date Activity User E-sign Co-sign Detail Recorded Client Recorded Date Recorded By Document 02/28/24 08:21 Desktop 02/28/24 08:24 02/28/24 08:21 Wound Center Nurse 2 -Time 08:21 -Correct Patient Yes -Correct Side, Site, Position Yes -Correct Procedure Yes -Procedure Performed Yes -Type of Procedure Debridement -Clinical Debridement Subcutaneous -Tissue Removed Subcutaneous -Post Debridement (cm) - Length 3.5 -Post Debridement (cm) - Width 2.0 -Post Debridement (cm) - Depth 0.3 -Total Square (Post) (cm) 7.00 -Area of Debridement (cm) - Length 3.5 -Area of Debridement (cm) - Width 2.0 -Total Square (Area) (cm) 7.00 -Tunneling No -Undermining/Tunneling No -Circular Undermining No -Wound/Ulcer Outcome Not Healed -Ulcer Cleansing Rinsed/ Irrigated with Saline -Foul Odor after Cleansing No -Bioengineered Tissue No -Bleeding Controlled with Pressure -Treatment Response Procedure Tolerated Well -Debridement - Subq, 1st 20sq cm Yes Pain Scale: 0-10 Numeric Is Patient Pain Free? Yes Assessment/Plan Assessment/Plan (1) Ulcer of left lower extremity with fat layer exposed: CODE(S): L97.922 - Non-pressure chronic ulcer of unspecified part of left lower leg with fat layer exposed (2) PVD (peripheral vascular disease): CODE(S): I73.9 - Peripheral vascular disease, unspecified (3) Chronic venous insufficiency: CODE(S): I87.2 - Venous insufficiency (chronic) (peripheral) (4) Delayed wound healing: CODE(S): T14.8XXD - Other injury of unspecified body region, subsequent encounter PLAN: Plan Debridement done as documented above, procedure was well-tolerated. Stable. Continue 10 minutes Dakins soak daily. Continue Fibracol, cover with Keramax care. He was advised that he could change it more than once if he notes increased drainage. Continue mupirocin ointment as well. Continue use of compression stockings, leg elevation and exercise. Increased protein intake, protein supplements, zinc and vitamin D. Switch back to Aquacel extra in about a month. His questions were answered and he was advised to call with any further questions or concerns. Follow-up in 2 weeks. This note was generated with [employer] dictation software. It may contain incorrect words, spelling, and punctuation that were not noted in checking the note before signing.
[2024-03-13 07:59] VITALS: BP 158/82; PULSE 89; RESP 18; TEMP 35.8; BMI 31.4
--- NOTE | 2024-03-13 08:27 | PN.PCM_ITS ---
History of Present Illness Date of Service: 03/13/24 Chief Complaint: ulcers to the left lower leg History of Wound: This is a 54-year-old male presents to wound healing center with a long-standing history of chronic venous insufficiency, chronic venous hypertension, lower extremity edema, lower extremity pain, and chronic left lower extremity ulcer. 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 He is currently wearing graduated compression stockings which are documented to be 20-30 mmHg compression and these are thigh high. He reports great compliance with use. He is also had previous arterial work-up with no intervention recommended by letter, his vascular surgeon. He denies taking nutritional supplementation. He saw dermatology and had a biopsy of the ulcer site. He also was previously treated by infectious disease for various contaminations and infections. He is not antibiotics at this time nor does he have any redness or odor coming from the wound. He denies fever, chill, nausea, vomiting, loss of appetite. 05/18/22: Mr. Jeronimo presents with a new right lower extremity ulceration. He states that this has been present for months and he has been trying to manage it at home without any significant improvement. Opened up months ago, no known precipitating factor. Has been applying wound dressings without any significant improvement. He reports increased drainage. Denies significant pain. No chills, fever or feeling of unwell. Progress of Wound: No new concerns reported at this time. Less edema compared to last visit. He also denies any significant drainage or discomfort. He reports compliance with his dressing changes. Objective Data Objective Data Vital Signs: Vital Signs Temp Pulse Resp BP Pulse Ox O2 Del Method 96.5 F L 89 18 158/82 H 99 Room Air 03/13/24 07:59 03/13/24 07:59 03/13/24 07:59 03/13/24 07:59 02/27/24 00:18 03/13/24 07:59 Oxygen Delivery Method Room Air Body Mass Index (BMI) 31.4 Charges/Coding Procedures Integumentary 111xxx-113xx: 28259 Lakeisha subq tissue 20 sq cm/< Physical Exam Const alert, oriented x3 and no apparent distress General Appearance: cooperative and comfortable HEENT normocephalic Head and Scalp: normal to inspection, normocephalic and atraumatic Eyes EOMs intact bilaterally Neck full ROM and supple General: normal visual inspection Resp normal respiratory effort Effort and Inspection: able to speak in complete sentences Extremity normal to inspection General Extremity: edema Skin Wounds: wounds noted Neuro oriented x3 and CN's II-XII intact bilaterally Psych mental status grossly normal Appearance: grossly normal Debridement Note Debridement Note Wound debrided: Left Medial Ankle Type of Debridement: Excisional debridement Anesthesia Used: 5% Lidocaine Gel Depth: Down to and including healthy tissue and in the subcutaneous layer Percentage of wound debrided: 100 Instrument Used: 5mm curette Tissue Removed: Slough and devitalized tissue Severity: Fat Layer Exposed Amount of bleeding with debridement: Mild Bleeding Controlled with: Pressure Patient tolerated procedure: Patient tolerated procedure well Post-Debridement Measurements and Additional Note: Post-Debridement Measurements/Treatment - Nurse 1 - General Ulcer Assessment Start: 02/28/24 08:12 Freq: Status: Active Protocol: SHANTA Activity Type Activity Date Activity User E-sign Co-sign Detail Recorded Client Recorded Date Recorded By Document 02/28/24 08:12 ML Desktop 02/28/24 08:14 ML Document 03/13/24 07:59 [id number] 03/13/24 08:04 KW 02/28/24 03/13/24 08:12 07:59 - Today's Visit Information Type of service Follow-up Visit Nurse-only (Physician/LEARNING AND DEVELOPMENT INTERN Visit ) Arrival Mode Ambulatory Ambulatory Transfer Assistance None Patient Identification Verified (Name & Yes Yes ) Patient Requires Transmission-Based No Precautions Height and Weight Body Mass Index (BMI) 31.4 31.4 BMI Classification Obese Obese Vital Signs Temperature (97.8 F-99.1 F) 96.0 F L 96.5 F L Temperature Source Temporal Temporal Pulse Rate (60-100) 89 89 Pulse Location Monitor Monitor Respiratory Rate (12-18) 15 18 Respiratory rate source Observation Observation Oxygen Delivery Method Room Air Blood Pressure (90/60-120/80) 144/81 H 158/82 H Blood Pressure Mean (mm Hg) 102 107 Source Monitor Monitor Position Sitting Semi-Fowlers Blood Pressure Location Right Arm Left Arm History Since Last Visit- (Skip if this is Patient's initial visit) Have you changed medications since your No No last visit? Any new allergies or adverse reactions No No Had a fall/change in ADL's that may No No increase risk of falls Signs or symptoms of abuse and/or No No neglect since last visit Have you been in the hospital since your No No last visit? Has dressing in place as prescribed Yes Yes Has compression in place as prescribed Yes N/A Has offloadiing in place as prescribed N/A N/A Experienced any changes in pain level or No No management Left Footwear Regular Shoe Regular Shoe Right Footwear Regular Shoe Regular Shoe Pain Scale: 0-10 Numeric Is Patient Pain Free? Yes Yes - Nurse 1 - General Ulcer Measurement Start: 02/28/24 08:12 Freq: Status: Active Protocol: Activity Type Activity Date Activity User E-sign Co-sign Detail Recorded Client Recorded Date Recorded By Document 02/28/24 08:12 ML Desktop 02/28/24 08:14 ML Document 03/13/24 07:59 KW [id number] 03/13/24 08:04 KW 02/28/24 03/13/24 08:12 07:59 Wound Center Nurse 1 #10 Left Medial Ankle -Current Size (cm) - Length 4 3.7 -Current Size (cm) - Width 2 1.8 -Current Size (cm) - Depth 0.3 0.2 -Total Square Cm 8 6.66 -Date of Last Picture (Recall this 03/13/24 field) -Epithelialization Medium 34-66% -Exudate Amt Medium -Exudate Type Serosanguineous -Wound Margin Distinct, Outline Attached -Granulation Amt Medium (34-66%) Large (67-100%) -Granulation Quality [place] -Slough/Fibrin Yes -Necrosis Amt Medium (34-66%) Small (1-33%) -Necrotic Tissue Type Adherent Slough -Texture (Ara-wound Skin Appearance) No Abnormality Assessed -Moisture (Ara-wound Skin Appearance) No Abnormality Assessed,Dry/ Scaly -Color (Ara-wound Skin Appearance) No Abnormality Assessed -Temperature (Ara-wound Skin No Abnormality No Abnormality Appearance) (Pt Warm) (Pt Warm) -Tenderness on Palpation (Ara-wound No Skin Appearance) -Ulcer Cleansing Rinsed/ Rinsed/ Irrigated with Irrigated with Saline Saline -Foul Odor after Cleansing No -Anesthetic Used 5% Lidocaine 5% Lidocaine Gel Gel WC - Nurse 2 - General Ulcer CM Notes Start: 02/28/24 08:12 Freq: Status: Active Protocol: Activity Type Activity Date Activity User E-sign Co-sign Detail Recorded Client Recorded Date Recorded By Document 02/28/24 08:21 Desktop 02/28/24 08:24 GM Document 03/13/24 08:22 [id number] 03/13/24 08:25 02/28/24 03/13/24 08:21 08:22 Wound Center Nurse 2 #10 Left Medial Ankle -Time 08:21 08:23 -Correct Patient Yes Yes -Correct Side, Site, Position Yes Yes -Correct Procedure Yes Yes -Procedure Performed Yes Yes -Type of Procedure Debridement Debridement -Clinical Debridement Subcutaneous Subcutaneous -Tissue Removed Subcutaneous Subcutaneous -Post Debridement (cm) - Length 3.5 8.6 -Post Debridement (cm) - Width 2.0 2.0 -Post Debridement (cm) - Depth 0.3 0.3 -Total Square (Post) (cm) 7.00 17.20 -Area of Debridement (cm) - Length 3.5 8.6 -Area of Debridement (cm) - Width 2.0 2.0 -Total Square (Area) (cm) 7.00 17.20 -Tunneling No No -Undermining/Tunneling No No -Circular Undermining No No -Wound/Ulcer Outcome Not Healed Not Healed -Ulcer Cleansing Rinsed/ Rinsed/ Irrigated with Irrigated with Saline Saline -Foul Odor after Cleansing No No -Bioengineered Tissue No No -Bleeding Controlled with Pressure Pressure -Treatment Response Procedure Procedure Tolerated Well Tolerated Well -Debridement - Subq, 1st 20sq cm Yes Yes Pain Scale: 0-10 Numeric Is Patient Pain Free? Yes Yes - Nurse 3 - General Ulcer D/C NN Start: 02/28/24 08:12 Freq: Status: Active Protocol: Activity Type Activity Date Activity User E-sign Co-sign Detail Recorded Client Recorded Date Recorded By Document 02/28/24 08:32 Desktop 02/28/24 08:32 GM Document 03/13/24 08:25 [id number] 03/13/24 08:26 02/28/24 03/13/24 08:32 08:25 Wound Care Center Nurse 3 #10 Left Medial Ankle -Ulcer Cleansing Not Cleansed Not Cleansed -Foul Odor after Cleansing No -Negative Pressure Wound Therapy N/A -Other Dressing abd -Primary Dressing Covered/Secured with Dry Gauze, Secured with Secured with Tape Tape Pain Scale: 0-10 Numeric Is Patient Pain Free? Yes Yes WC - Visit Discharge Discharge Condition Stable Stable Ambulatory Status Ambulatory Ambulatory Transportation Private Auto Private Auto Clinical Summary of Care Provided Yes Yes Assessment/Plan Assessment/Plan (1) Ulcer of left lower extremity with fat layer exposed: CODE(S): L97.922 - Non-pressure chronic ulcer of unspecified part of left lower leg with fat layer exposed (2) PVD (peripheral vascular disease): CODE(S): I73.9 - Peripheral vascular disease, unspecified (3) Chronic venous insufficiency: CODE(S): I87.2 - Venous insufficiency (chronic) (peripheral) (4) Delayed wound healing: CODE(S): T14.8XXD - Other injury of unspecified body region, subsequent e ncounter PLAN: Plan Debridement done as documented above, procedure was well-tolerated. No acute changes or concerns. Good granulation tissue. Less lower extremity edema appreciated today. Continue 10 minutes Dakins soak daily. Continue Fibracol, cover with Keramax care. He was advised that he could change it more than once if he notes increased drainage. Continue mupirocin ointment as well. Continue use of compression stockings, leg elevation and exercise. Increased protein intake, protein supplements, zinc and vitamin D. Switch back to Aquacel extra once supply of Fibracol is exhausted. His questions were answered and he was advised to call with any further questions or concerns. Follow-up in 2 weeks. This note was generated with [employer] dictation software. It may contain incorrect words, spelling, and punctuation that were not noted in checking the note before signing.
--- NOTE | 2024-03-13 11:27 | WC ---
03/13/2024 LEFT MEDIAL ANKLE
[2024-03-27 08:08] VITALS: BP 154/87; PULSE 94; RESP 18; TEMP 35.3; BMI 31.4
--- NOTE | 2024-03-27 08:33 | PN.PCM_ITS ---
History of Present Illness Date of Service: 03/27/24 Chief Complaint: ulcers to the left lower leg History of Wound: This is a 54-year-old male presents to wound healing center with a long-standing history of chronic venous insufficiency, chronic venous hypertension, lower extremity edema, lower extremity pain, and chronic left lower extremity ulcer. 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 He is currently wearing graduated compression stockings which are documented to be 20-30 mmHg compression and these are thigh high. He reports great compliance with use. He is also had previous arterial work-up with no intervention recommended by letter, his vascular surgeon. He denies taking nutritional supplementation. He saw dermatology and had a biopsy of the ulcer site. He also was previously treated by infectious disease for various contaminations and infections. He is not antibiotics at this time nor does he have any redness or odor coming from the wound. He denies fever, chill, nausea, vomiting, loss of appetite. 05/18/22: Mr. Jeronimo presents with a new right lower extremity ulceration. He states that this has been present for months and he has been trying to manage it at home without any significant improvement. Opened up months ago, no known precipitating factor. Has been applying wound dressings without any significant improvement. He reports increased drainage. Denies significant pain. No chills, fever or feeling of unwell. Progress of Wound: No new concerns reported at this time. Since his last visit, has been using Aquacel in addition to other wound care dressings/instructions. Overall, stable . Objective Data Objective Data Vital Signs: Vital Signs Temp Pulse Resp BP Pulse Ox O2 Del Method 95.6 F L 94 18 154/87 H 99 Room Air 03/27/24 08:08 03/27/24 08:08 03/27/24 08:08 03/27/24 08:08 02/27/24 00:18 03/27/24 08:08 Oxygen Delivery Method Room Air Body Mass Index (BMI) 31.4 Charges/Coding Procedures Integumentary 111xxx-113xx: [id number] Lakeisha subq tissue 20 sq cm/< Physical Exam Const alert, oriented x3 and no apparent distress General Appearance: cooperative and comfortable HEENT normocephalic Head and Scalp: normal to inspection, normocephalic and atraumatic Eyes EOMs intact bilaterally Neck full ROM and supple General: normal visual inspection Resp normal respiratory effort Effort and Inspection: able to speak in complete sentences Extremity normal to inspection General Extremity: edema Skin Wounds: wounds noted bed granulating well and no odor Neuro oriented x3 and CN's II-XII intact bilaterally Psych mental status grossly normal Appearance: grossly normal Debridement Note Debridement Note Wound debrided: Left medial ankle Type of Debridement: Excisional debridement Anesthesia Used: 5% Lidocaine Gel Depth: Down to and including healthy tissue and in the subcutaneous layer Percentage of wound debrided: 100 Instrument Used: 5mm curette Tissue Removed: Slough and devitalized tissue Severity: Fat Layer Exposed Amount of bleeding with debridement: Mild Bleeding Controlled with: Pressure Post-Debridement Measurements and Additional Note: Post-Debridement Measurements/Treatment KIMBERLY - Nurse 1 - General Ulcer Assessment Start: 02/28/24 08:12 Freq: Status: Active Protocol: SHANTA Activity Type Activity Date Activity User E-sign Co-sign Detail Recorded Client Recorded Date Recorded By Document 02/28/24 08:12 ML Desktop 02/28/24 08:14 ML Document 03/13/24 07:59 KW [id number] 03/13/24 08:04 KW Document 03/27/24 08:08 KW wound center 03/27/24 08:12 KW 02/28/24 03/13/24 03/27/24 08:12 07:59 08:08 - Today's Visit Information Type of service Follow-up Visit Nurse-only Follow-up Visit (Physician/RESIDENCE LIFE DIRECTOR Visit (Physician/RESIDENCE LIFE DIRECTOR ) ) Arrival Mode Ambulatory Ambulatory Ambulatory Transfer Assistance None Patient Identification Verified (Name & Yes Yes Yes ) Patient Requires Transmission-Based No Precautions Height and Weight Body Mass Index (BMI) 31.4 31.4 31.4 BMI Classification Obese Obese Obese Vital Signs Temperature (97.8 F-99.1 F) 96.0 F L 96.5 F L 95.6 F L Temperature Source Temporal Temporal Temporal Pulse Rate (60-100) 89 89 94 Pulse Location Monitor Monitor Monitor Respiratory Rate (12-18) 15 18 18 Respiratory rate source Observation Observation Observation Oxygen Delivery Method Room Air Room Air Blood Pressure (90/60-120/80) 144/81 H 158/82 H 154/87 H Blood Pressure Mean (mm Hg) 102 107 109 Source Monitor Monitor Monitor Position Sitting Semi-Fowlers Semi-Fowlers Blood Pressure Location Right Arm Left Arm Left Arm History Since Last Visit- (Skip if this is Patient's initial visit) Have you changed medications since your No No No last visit? Any new allergies or adverse reactions No No No Had a fall/change in ADL's that may No No No increase risk of falls Signs or symptoms of abuse and/or No No No neglect since last visit Have you been in the hospital since your No No No last visit? Has dressing in place as prescribed Yes Yes Yes Has compression in place as prescribed Yes N/A Yes Has offloadiing in place as prescribed N/A N/A N/A Experienced any changes in pain level or No No No management Left Footwear Regular Shoe Regular Shoe Regular Shoe Right Footwear Regular Shoe Regular Shoe Regular Shoe Pain Scale: 0-10 Numeric Is Patient Pain Free? Yes Yes Yes WC - Nurse 1 - General Ulcer Measurement Start: 02/28/24 08:12 Freq: Status: Active Protocol: Activity Type Activity Date Activity User E-sign Co-sign Detail Recorded Client Recorded Date Recorded By Document 02/28/24 08:12 ML Desktop 02/28/24 08:14 ML Document 03/13/24 07:59 KW [id number] 03/13/24 08:04 KW Document 03/27/24 08:08 KW wound center 03/27/24 08:12 KW 02/28/24 03/13/24 03/27/24 08:12 07:59 08:08 Wound Center Nurse 1 #10 Left Medial Ankle -Current Size (cm) - Length 4 3.7 3.3 -Current Size (cm) - Width 2 1.8 2.8 -Current Size (cm) - Depth 0.3 0.2 0.2 -Total Square Cm 8 6.66 9.24 -Date of Last Picture (Recall this 03/13/24 field) -Epithelialization Medium 34-66% -Exudate Amt Medium Small -Exudate Type Serosanguineous Serosanguineous -Wound Margin Distinct, Distinct, Outline Outline Attached Attached -Granulation Amt Medium (34-66%) Large (67-100%) Medium (34-66%) -Granulation Quality [place] -Slough/Fibrin Yes -Necrosis Amt Medium (34-66%) Small (1-33%) Small (1-33%) -Necrotic Tissue Type Adherent Slough Adherent Slough -Texture (Ara-wound Skin Appearance) No Abnormality Assessed Assessed -Moisture (Ara-wound Skin Appearance) No Abnormality Assessed,Dry/ Assessed Scaly -Color (Ara-wound Skin Appearance) No Abnormality Assessed Assessed -Temperature (Ara-wound Skin No Abnormality No Abnormality No Abnormality Appearance) (Pt Warm) (Pt Warm) (Pt Warm) -Tenderness on Palpation (Ara-wound No No Skin Appearance) -Ulcer Cleansing Rinsed/ Rinsed/ Rinsed/ Irrigated with Irrigated with Irrigated with Saline Saline Saline -Foul Odor after Cleansing No No -Anesthetic Used 5% Lidocaine 5% Lidocaine 5% Lidocaine Gel Gel Gel WC - Nurse 2 - General Ulcer CM Notes Start: 02/28/24 08:12 Freq: Status: Active Protocol: Activity Type Activity Date Activity User E-sign Co-sign Detail Recorded Client Recorded Date Recorded By Document 02/28/24 08:21 GM Desktop 02/28/24 08:24 GM Document 03/13/24 08:22 GM [id number] 03/13/24 08:25 GM Edit Result 03/13/24 08:22 GM (1) [id number] 03/13/24 09:24 GM Document 03/27/24 08:25 GM 03/27/24 08:26 GM (1) #10 Left Medial Ankle - Post Debridement (cm) - Length 8.6 => 3.6 - Total Square (Post) (cm) 17.20 => 7.20 - Area of Debridement (cm) - Length 8.6 => 3.6 - Total Square (Area) (cm) 17.20 => 7.20 02/28/24 03/13/24 03/27/24 08:21 08:22 08:25 Wound Center Nurse 2 #10 Left Medial Ankle -Time 08:21 08:23 08:25 -Correct Patient Yes Yes Yes -Correct Side, Site, Position Yes Yes Yes -Correct Procedure Yes Yes Yes -Procedure Performed Yes Yes Yes -Type of Procedure Debridement Debridement Debridement -Clinical Debridement Subcutaneous Subcutaneous Subcutaneous -Tissue Removed Subcutaneous Subcutaneous Subcutaneous -Post Debridement (cm) - Length 3.5 3.6 3.5 -Post Debridement (cm) - Width 2.0 2.0 2.0 -Post Debridement (cm) - Depth 0.3 0.3 0.3 -Total Square (Post) (cm) 7.00 7.20 7.00 -Area of Debridement (cm) - Length 3.5 3.6 2.0 -Area of Debridement (cm) - Width 2.0 2.0 0.3 -Total Square (Area) (cm) 7.00 7.20 0.60 -Tunneling No No No -Undermining/Tunneling No No No -Circular Undermining No No No -Wound/Ulcer Outcome Not Healed Not Healed Not Healed -Ulcer Cleansing Rinsed/ Rinsed/ Rinsed/ Irrigated with Irrigated with Irrigated with Saline Saline Saline -Foul Odor after Cleansing No No No -Bioengineered Tissue No No No -Bleeding Controlled with Pressure Pressure Pressure -Treatment Response Procedure Procedure Procedure Tolerated Well Tolerated Well Tolerated Well -Debridement - Subq, 1st 20sq cm Yes Yes Yes Pain Scale: 0-10 Numeric Is Patient Pain Free? Yes Yes Yes - Nurse 3 - General Ulcer D/C NN Start: 02/28/24 08:12 Freq: Status: Active Protocol: Activity Type Activity Date Activity User E-sign Co-sign Detail Recorded Client Recorded Date Recorded By Document 02/28/24 08:32 Desktop 02/28/24 08:32 Document 03/13/24 08:25 [id number] 03/13/24 08:26 Document 03/27/24 08:26 [facility] 03/27/24 08:27 02/28/24 03/13/24 03/27/24 08:32 08:25 08:26 Wound Care Center Nurse 3 #10 Left Medial Ankle -Ulcer Cleansing Not Cleansed Not Cleansed Not Cleansed -Foul Odor after Cleansing No No -Negative Pressure Wound Therapy N/A -Other Dressing abd -Primary Dressing Covered/Secured with Dry Gauze, Secured with Secured with Tape Tape -Wound Comment(s) patient wanted an abd taped, he is going home to shower Pain Scale: 0-10 Numeric Is Patient Pain Free? Yes Yes Yes - Visit Discharge Discharge Condition Stable Stable Stable Ambulatory Status Ambulatory Ambulatory Ambulatory Transportation Private Auto Private Auto Private Auto Clinical Summary of Care Provided Yes Yes Yes Assessment/Plan Assessment/Plan (1) Ulcer of left lower extremity with fat layer exposed: CODE(S): L97.922 - Non-pressure chronic ulcer of unspecified part of left lower leg with fat layer exposed (2) PVD (peripheral vascular disease): CODE(S): I73.9 - Peripheral vascular disease, unspecified (3) Chronic venous insufficiency: CODE(S): I87.2 - Venous insufficiency (chronic) (peripheral) (4) Delayed wound healing: CODE(S): T14.8XXD - Other injury of unspecified body region, subsequent encounter PLAN: Plan Debridement done as documented above, procedure was well-tolerated. No acute changes or concerns, still has good granulation tissue. Continue 10 minutes Dakins soak daily. As above, switched back to Aquacel 2 weeks ago, continue same, cover with Keramax care. He was advised that he could change it more than once if he notes increased drainage. Continue mupirocin ointment as well. Continue use of compression stockings, leg elevation and exercise. Increased protein intake, protein supplements, zinc and vitamin D. His questions were answered and he was advised to call with any further questions or concerns. Follow-up in 2 weeks. This note was generated with [employer] dictation software. It may contain incorrect words, spelling, and punctuation that were not noted in checking the note before signing.
== END 2024-03-28 23:59 | disposition home or self-care (01) ==
LOC: WC 08:00
PROVIDERS: PCP Family Medicine; Referring Provider Family Medicine; Visit Provider Internal Medicine
DX: I73.9 Peripheral vascular disease, unspecified (principal); L97.322 Non-pressure chronic ulcer of left ankle with fat layer exposed; R60.0 Localized edema; I87.2 Venous insufficiency (chronic) (peripheral)
CPT/HCPCS: 11042

== ENCOUNTER 2024-04-10 07:57 | Outpatient (RCR) | payer OTHER, SELFPAY ==
[2024-03-29 00:34] VITALS: BP 148/81; PULSE 86; RESP 18; TEMP 36.6; O2SAT 99; BMI 31.4
[2024-04-10 08:09] VITALS: BP 146/91; PULSE 87; RESP 18; TEMP 36.1; BMI 31.4
--- NOTE | 2024-04-10 08:24 | PCM.WC.PN ---
History of Present Illness Date of Service: 04/10/24 Chief Complaint: ulcers to the left lower leg History of Wound: This is a 54-year-old male presents to wound healing center with a long-standing history of chronic venous insufficiency, chronic venous hypertension, lower extremity edema, lower extremity pain, and chronic left lower extremity ulcer. 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 He is currently wearing graduated compression stockings which are documented to be 20-30 mmHg compression and these are thigh high. He reports great compliance with use. He is also had previous arterial work-up with no intervention recommended by letter, his vascular surgeon. He denies taking nutritional supplementation. He saw dermatology and had a biopsy of the ulcer site. He also was previously treated by infectious disease for various contaminations and infections. He is not antibiotics at this time nor does he have any redness or odor coming from the wound. He denies fever, chill, nausea, vomiting, loss of appetite. 05/18/22: Mr. Jeronimo presents with a new right lower extremity ulceration. He states that this has been present for months and he has been trying to manage it at home without any significant improvement. Opened up months ago, no known precipitating factor. Has been applying wound dressings without any significant improvement. He reports increased drainage. Denies significant pain. No chills, fever or feeling of unwell. Progress of Wound: No new concerns at this time. He denies any significant drainage. He states that has been doing his dressing changes as recommended. Objective Data Objective Data Vital Signs: Vital Signs Temp Pulse Resp BP Pulse Ox 97 F L 87 18 146/91 H 99 04/10/24 08:09 04/10/24 08:09 04/10/24 08:09 04/10/24 08:09 03/29/24 00:34 Body Mass Index (BMI) 31.4 Charges/Coding Procedures Integumentary 111xxx-113xx: 47782 Lakeisha subq tissue 20 sq cm/< Physical Exam Const alert, oriented x3 and no apparent distress General Appearance: cooperative and comfortable HEENT normocephalic Head and Scalp: normal to inspection, normocephalic and atraumatic Eyes EOMs intact bilaterally Neck full ROM and supple General: normal visual inspection Resp normal respiratory effort Effort and Inspection: able to speak in complete sentences Extremity normal to inspection General Extremity: edema Skin Wounds: wounds noted bed granulating well, margins other Increased crusting , no odor and open Neuro oriented x3 and CN's II-XII intact bilaterally Psych mental status grossly normal Appearance: grossly normal Debridement Note Debridement Note Wound debrided: Left medial ankle/lower extremity Type of Debridement: Excisional debridement Anesthesia Used: 5% Lidocaine Gel Depth: in the subcutaneous layer Percentage of wound debrided: 100 Instrument Used: 5mm curette Tissue Removed: Slough and devitalized tissue Severity: Fat Layer Exposed Amount of bleeding with debridement: Mild Bleeding Controlled with: Pressure Patient tolerated procedure: Patient tolerated procedure well Post-Debridement Measurements and Additional Note: Post-Debridement Measurements/Treatment - Nurse 1 - General Ulcer Assessment Start: 04/10/24 08:09 Freq: Status: Active Protocol: [email or web address].MEHDI Activity Type Activity Date Activity User E-sign Co-sign Detail Recorded Client Recorded Date Recorded By Document 04/10/24 08:09 TRIPP [email or web address] 04/10/24 08:10 TRIPP 04/10/24 08:09 - Today's Visit Information Type of service Follow-up Visit (Physician/FIREBRICK LAYER HELPER ) Arrival Mode Ambulatory Transfer Assistance None Patient Identification Verified (Name & Yes ) Patient Requires Transmission-Based No Precautions Height and Weight Body Mass Index (BMI) 31.4 BMI Classification Obese Vital Signs Temperature (97.8 F-99.1 F) 97 F L Temperature Source Temporal Pulse Rate (60-100) 87 Pulse Location Monitor Respiratory Rate (12-18) 18 Respiratory rate source Observation Blood Pressure (90/60-120/80) 146/91 H Blood Pressure Mean (mm Hg) 109 Source Monitor Position Semi-Fowlers Blood Pressure Location Left Arm History Since Last Visit- (Skip if this is Patient's initial visit) Have you changed medications since your No last visit? Any new allergies or adverse reactions No Had a fall/change in ADL's that may No increase risk of falls Signs or symptoms of abuse and/or No neglect since last visit Have you been in the hospital since your No last visit? Has dressing in place as prescribed Yes Has compression in place as prescribed Yes Has offloadiing in place as prescribed No Experienced any changes in pain level or No management Pain Scale: 0-10 Numeric Is Patient Pain Free? Yes - Nurse 1 - General Ulcer Measurement Start: 04/10/24 08:09 Freq: Status: Active Protocol: Activity Type Activity Date Activity User E-sign Co-sign Detail Recorded Client Recorded Date Recorded By Document 04/10/24 08:09 RB [email or web address] 04/10/24 08:10 RB 04/10/24 08:09 Wound Center Nurse 1 #10 Left Medial Ankle -Combined with other wound No -Current Size (cm) - Length 3.2 -Current Size (cm) - Width 1.8 -Current Size (cm) - Depth 0.2 -Total Square Cm 5.76 -Tunneling No -Undermining/Tunneling No -Circular Undermining No -Exudate Amt Medium -Exudate Type Serosanguineous -Wound Margin Distinct, Outline Attached -Granulation Amt Medium (34-66%) -Granulation Quality [place] -Slough/Fibrin Yes -Necrosis Amt Medium (34-66%) -Necrotic Tissue Type Adherent Slough -Structure Exposed Fat Layer Exposed,N/A -Texture (Ara-wound Skin Appearance) Assessed, Scarring -Moisture (Ara-wound Skin Appearance) Assessed -Color (Ara-wound Skin Appearance) Assessed, Hemosiderin Staining -Temperature (Ara-wound Skin No Abnormality Appearance) (Pt Warm) -Tenderness on Palpation (Ara-wound No Skin Appearance) -Ulcer Cleansing Wound Cleanser -Foul Odor after Cleansing No -Anesthetic Used 5% Lidocaine Gel - Nurse 2 - General Ulcer CM Notes Start: 04/10/24 08:09 Freq: Status: Active Protocol: Activity Type Activity Date Activity User E-sign Co-sign Detail Recorded Client Recorded Date Recorded By Document 04/10/24 08:19 [facility] 04/10/24 08:22 04/10/24 08:19 Wound Center Nurse 2 -Time 08:19 -Correct Patient Yes -Correct Side, Site, Position Yes -Correct Procedure Yes -Procedure Performed Yes -Type of Procedure Debridement -Clinical Debridement Subcutaneous -Tissue Removed Subcutaneous -Post Debridement (cm) - Length 3.2 -Post Debridement (cm) - Width 1.9 -Post Debridement (cm) - Depth 0.2 -Total Square (Post) (cm) 6.08 -Area of Debridement (cm) - Length 3.2 -Area of Debridement (cm) - Width 1.9 -Total Square (Area) (cm) 6.08 -Tunneling No -Undermining/Tunneling No -Circular Undermining No -Wound/Ulcer Outcome Not Healed -Ulcer Cleansing Rinsed/ Irrigated with Saline -Foul Odor after Cleansing No -Bioengineered Tissue No -Bleeding Controlled with Pressure -Treatment Response Procedure Tolerated Well -Debridement - Subq, 1st 20sq cm Yes Pain Scale: 0-10 Numeric Is Patient Pain Free? Yes Assessment/Plan Assessment/Plan (1) Ulcer of left lower extremity with fat layer exposed: CODE(S): L97.922 - Non-pressure chronic ulcer of unspecified part of left lower leg with fat layer exposed (2) PVD (peripheral vascular disease): CODE(S): I73.9 - Peripheral vascular disease, unspecified (3) Chronic venous insufficiency: CODE(S): I87.2 - Venous insufficiency (chronic) (peripheral) (4) Delayed wound healing: CODE(S): T14.8XXD - Other injury of unspecified body region, subsequent encounter PLAN: Plan Debridement done as documented above, procedure was well-tolerated. Slight improvement since his last visit. Increase periulcer crusting and dryness noted on examination. Continue 10 minutes Dakins soak daily. Continue Aquacel extra, Adaptic and KerraMax. He was advised that he could change it more than once if he notes increased drainage. Continue mupirocin ointment as well. He was reminded to adequately moisturize his lower extremity, he voiced understanding. Continue use of compression stockings, leg elevation and exercise. Increased protein intake, protein supplements, zinc and vitamin D. His questions were answered and he was advised to call with any further questions or concerns. Follow-up in 2 weeks. This note was generated with [employer] dictation software. It may contain incorrect words, spelling, and punctuation that were not noted in checking the note before signing.
== END 2024-04-27 23:59 | disposition home or self-care (01) ==
LOC: WC 07:57
PROVIDERS: PCP Family Medicine; Referring Provider Family Medicine; Visit Provider Internal Medicine
DX: T86.821 Skin graft (allograft) (autograft) failure (principal); L97.822 Non-pressure chronic ulcer of other part of left lower leg with fat layer exposed; B37.2 Candidiasis of skin and nail; I73.9 Peripheral vascular disease, unspecified; I87.2 Venous insufficiency (chronic) (peripheral); Z96.652 Presence of left artificial knee joint; Z79.01 Long term (current) use of anticoagulants; Y83.2 Surgical operation with anastomosis, bypass or graft as the cause of abnormal reaction of the patient, or of later complication, without mention of misadventure at the time of the procedure; R53.81 Other malaise; R60.0 Localized edema; T84.498S Other mechanical complication of other internal orthopedic devices, implants and grafts, sequela; T84.54XS Infection and inflammatory reaction due to internal left knee prosthesis, sequela
CPT/HCPCS: 11042

== ENCOUNTER 2024-05-15 08:45 | Outpatient (RCR) | payer OTHER, SELFPAY ==
[2024-04-28 00:10] VITALS: BP 148/81; PULSE 86; RESP 18; TEMP 36.6; O2SAT 99; BMI 31.4
[2024-05-08 08:09] VITALS: BP 154/78; PULSE 84; RESP 18; TEMP 36.7; BMI 31.4
--- NOTE | 2024-05-08 08:38 | PN.PCM_ITS ---
History of Present Illness Date of Service: 05/08/24 Chief Complaint: ulcers to the left lower leg History of Wound: This is a 54-year-old male presents to wound healing center with a long-standing history of chronic venous insufficiency, chronic venous hypertension, lower extremity edema, lower extremity pain, and chronic left lower extremity ulcer. The patient has previously undergone endovenous laser ablation of the left and right great saphenous vein, the small saphenous vein, the left accessory saphenous vein, and an incompetent left calf musical instrument maker vein located 15 cm proximal to the left medial malleolus. He is currently wearing graduated compression stockings which are documented to be 20-30 mmHg compression and these are thigh high. He reports great compliance with use. He is also had previous arterial work-up with no intervention recommended by letter, his vascular surgeon. He denies taking nutritional supplementation. He saw dermatology and had a biopsy of the ulcer site. He also was previously treated by infectious disease for various contaminations and infections. He is not antibiotics at this time nor does he have any redness or odor coming from the wound. He denies fever, chill, nausea, vomiting, loss of appetite. 05/18/22: Mr. Jeronimo presents with a new right lower extremity ulceration. He states that this has been present for months and he has been trying to manage it at home without any significant improvement. Opened up months ago, no known precipitating factor. Has been applying wound dressings without any significant improvement. He reports increased drainage. Denies significant pain. No chills, fever or feeling of unwell. Progress of Wound: Some worsening in depth and circumference however, he denies any concerns. He denies increased pain or drainage. He states that he has been doing his dress ing changes as recommended. Objective Data Objective Data Vital Signs: Vital Signs Temp Pulse Resp BP Pulse Ox O2 Del Method 98.1 F 84 18 154/78 H 99 Room Air 05/08/24 08:09 05/08/24 08:09 05/08/24 08:09 05/08/24 08:09 04/28/24 00:10 05/08/24 08:09 Oxygen Delivery Method Room Air Body Mass Index (BMI) 31.4 Charges/Coding Procedures Integumentary 111xxx-113xx: 74058 Lakeisha subq tissue 20 sq cm/< Physical Exam Const alert, oriented x3 and no apparent distress General Appearance: cooperative and comfortable HEENT normocephalic Head and Scalp: normal to inspection, normocephalic and atraumatic Eyes EOMs intact bilaterally Neck full ROM and supple General: normal visual inspection Resp normal respiratory effort Effort and Inspection: able to speak in complete sentences Extremity normal to inspection General Extremity: edema Skin Wounds: wounds noted bed granulating well, margins well defined, no odor and open Neuro oriented x3 and CN's II-XII intact bilaterally Psych mental status grossly normal Appearance: grossly normal Debridement Note Debridement Note Wound debrided: Left Medial Ankle Type of Debridement: Excisional debridement Anesthesia Used: 4% Lidocaine Solution Depth: Down to and including healthy tissue and in the subcutaneous layer Percentage of wound debrided: 100 Instrument Used: 5mm curette Tissue Removed: Slough and devitalized tissue Severity: Fat Layer Exposed Amount of bleeding with debridement: Mild Bleeding Controlled with: Pressure Patient tolerated procedure: Patient tolerated procedure well Post-Debridement Measurements and Additional Note: Post-Debridement Measurements/Treatment - Nurse 1 - General Ulcer Assessment Start: 05/08/24 08:09 Freq: Status: Active Protocol: SHANTA Activity Type Activity Date Activity User E-sign Co-sign Detail Recorded Client Recorded Date Recorded By Document 05/08/24 08:09 KW ; 05/08/24 08:13 KW 05/08/24 08:09 - Today's Visit Information Type of service Follow-up Visit (Physician/[employer] ) Arrival Mode Ambulatory Height and Weight Body Mass Index (BMI) 31.4 BMI Classification Obese Vital Signs Temperature (97.8 F-99.1 F) 98.1 F Temperature Source Temporal Pulse Rate (60-100) 84 Pulse Location Monitor Respiratory Rate (12-18) 18 Respiratory rate source Observation Oxygen Delivery Method Room Air Blood Pressure (90/60-120/80) 154/78 H Blood Pressure Mean (mm Hg) 103 Source Monitor Position Semi-Fowlers Blood Pressure Location Left Arm History Since Last Visit- (Skip if this is Patient's initial visit) Have you changed medications since your No last visit? Any new allergies or adverse reactions No Had a fall/change in ADL's that may No increase risk of falls Signs or symptoms of abuse and/or No neglect since last visit Have you been in the hospital since your No last visit? Has dressing in place as prescribed Yes Has compression in place as prescribed N/A Has offloadiing in place as prescribed N/A Experienced any changes in pain level or No management Left Footwear Regular Shoe Right Footwear Regular Shoe Pain Scale: 0-10 Numeric Is Patient Pain Free? Yes - Nurse 1 - General Ulcer Measurement Start: 05/08/24 08:09 Freq: Status: Active Protocol: Activity Type Activity Date Activity User E-sign Co-sign Detail Recorded Client Recorded Date Recorded By Document 05/08/24 08:09 KW ; 05/08/24 08:13 KW 05/08/24 08:09 Wound Center Nurse 1 #10 Left Medial Ankle -Current Size (cm) - Length 3.5 -Current Size (cm) - Width 2 -Current Size (cm) - Depth 0.2 -Total Square Cm 7.0 -Date of Last Picture (Recall this 05/08/24 field) -Exudate Amt Small -Exudate Type Serosanguineous -Wound Margin Distinct, Outline Attached -Granulation Amt Medium (34-66%) -Granulation Quality [place],Red -Necrosis Amt Medium (34-66%) -Necrotic Tissue Type Adherent Slough -Texture (Ara-wound Skin Appearance) Assessed -Moisture (Ara-wound Skin Appearance) Assessed,Dry/ Scaly -Color (Ara-wound Skin Appearance) Assessed -Temperature (Ara-wound Skin No Abnormality Appearance) (Pt Warm) -Tenderness on Palpation (Ara-wound No Skin Appearance) -Ulcer Cleansing Rinsed/ Irrigated with Saline -Foul Odor after Cleansing No -Anesthetic Used 5% Lidocaine Gel - Nurse 2 - General Ulcer CM Notes Start: 05/08/24 08:09 Freq: Status: Active Protocol: Activity Type Activity Date Activity User E-sign Co-sign Detail Recorded Client Recorded Date Recorded By Document 05/08/24 08:22 [facility] 05/08/24 08:31 05/08/24 08:22 Wound Center Nurse 2 -Time 08:23 -Correct Patient Yes -Correct Side, Site, Position Yes -Correct Procedure Yes -Procedure Performed Yes -Type of Procedure Debridement -Clinical Debridement Subcutaneous -Tissue Removed Subcutaneous -Post Debridement (cm) - Length 3.4 -Post Debridement (cm) - Width 2.0 -Post Debridement (cm) - Depth 0.3 -Total Square (Post) (cm) 6.80 -Area of Debridement (cm) - Length 3.4 -Area of Debridement (cm) - Width 2.0 -Total Square (Area) (cm) 6.80 -Tunneling No -Undermining/Tunneling No -Circular Undermining No -Wound/Ulcer Outcome Not Healed -Ulcer Cleansing Rinsed/ Irrigated with Saline -Foul Odor after Cleansing No -Bioengineered Tissue No -Bleeding Controlled with Pressure -Treatment Response Procedure Tolerated Well -Debridement - Subq, 1st 20sq cm Yes Pain Scale: 0-10 Numeric Is Patient Pain Free? Yes - Nurse 3 - General Ulcer D/C NN Start: 05/08/24 08:09 Freq: Status: Active Protocol: Activity Type Activity Date Activity User E-sign Co-sign Detail Recorded Client Recorded Date Recorded By Document 05/08/24 08:35 [facility] 05/08/24 08:35 05/08/24 08:35 Wound Care Center Nurse 3 #10 Left Medial Ankle -Ulcer Cleansing Not Cleansed -Primary Dressing Covered/Secured with Secured with Tape,Other -Other Covering abd pad Pain Scale: 0-10 Numeric Is Patient Pain Free? Yes - Visit Discharge Discharge Condition Stable Ambulatory Status Ambulatory Transportation Private Auto Clinical Summary of Care Provided Yes Assessment/Plan Assessment/Plan (1) Ulcer of left lower extremity with fat layer exposed: CODE(S): L97.922 - Non-pressure chronic ulcer of unspecified part of left lower leg with fat layer exposed (2) PVD (peripheral vascular disease): CODE(S): I73.9 - Peripheral vascular disease, unspecified (3) Chronic venous insufficiency: CODE(S): I87.2 - Venous insufficiency (chronic) (peripheral) (4) Delayed wound healing: CODE(S): T14.8XXD - Other injury of unspecified body region, subsequent encounter PLAN: Plan Debridement done as documented above, procedure was well-tolerated. Some worsening since his last visit. As above, he denies increased pain or drainage. He states that has been doing his dressing changes as recommended. He has not been here in 4 weeks due to holidays and vacations. Cultures taken, will review. Last seen by benjie Oliver ( Dr. Doty ) in 2021 and he states that he was not told to come back . There had been some cost concerns as well. Previously, had seen Alyssia. He is not open to a skin substitute at this time. Continue 10 minutes Dakins soak daily. Continue Aquacel extra, Adaptic and KerraMax. He was advised that he could change it more than once if he notes increased drainage. Continue mupirocin ointment as well. Continue use of compression stockings, leg elevation and exercise. Increased protein intake, protein supplements, zinc and vitamin D. His questions were answered and he was advised to call with any further questions or concerns. Follow-up in 1 week. This note was generated with E-[employer] dictation software. It may contain incorrect words, spelling, and punctuation that were not noted in checking the note before signing.
--- NOTE | 2024-05-14 08:39 | WC ---
PHOTO 05/08/24 LEFT MEDIAL ANKLE
[2024-05-15 08:41] VITALS: BP 149/83; PULSE 87; RESP 18; TEMP 36.2; BMI 31.4
--- NOTE | 2024-05-15 09:30 | PN.PCM_ITS ---
History of Present Illness Date of Service: 05/15/24 Chief Complaint: ulcers to the left lower leg History of Wound: This is a 54-year-old male presents to wound healing center with a long-standing history of chronic venous insufficiency, chronic venous hypertension, lower extremity edema, lower extremity pain, and chronic left lower extremity ulcer. 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 He is currently wearing graduated compression stockings which are documented to be 20-30 mmHg compression and these are thigh high. He reports great compliance with use. He is also had previous arterial work-up with no intervention recommended by letter, his vascular surgeon. He denies taking nutritional supplementation. He saw dermatology and had a biopsy of the ulcer site. He also was previously treated by infectious disease for various contaminations and infections. He is not antibiotics at this time nor does he have any redness or odor coming from the wound. He denies fever, chill, nausea, vomiting, loss of appetite. 05/18/22: Mr. Jeronimo presents with a new right lower extremity ulceration. He states that this has been present for months and he has been trying to manage it at home without any significant improvement. Opened up months ago, no known precipitating factor. Has been applying wound dressings without any significant improvement. He reports increased drainage. Denies significant pain. No chills, fever or feeling of unwell. Progress of Wound: No new concerns at this time. He states that he has been doing his dressing changes as recommended including using mupirocin ointment. Cultures reviewed. Objective Data Objective Data Vital Signs: Vital Signs Temp Pulse Resp BP Pulse Ox O2 Del Method 97.1 F L 87 18 149/83 H 99 Room Air 05/15/24 08:41 05/15/24 08:41 05/15/24 08:41 05/15/24 08:41 04/28/24 00:10 05/15/24 08:41 Oxygen Delivery Method Room Air Body Mass Index (BMI) 31.4 Lab / Micro Data Micro: Microbiology 05/08/24 08:27 Ulcer, Decubitus - Ankle Gram Stain - Final 05/08/24 08:27 Ulcer, Decubitus - Ankle Wound Culture - Final Pseudomonas aeruginosa Staphylococcus epidermidis [place] odontolyticus 05/08/24 08:27 Ulcer, Decubitus - Ankle Anaerobic Culture - Final Bacteroides thetaiotaomicron Anaerobic cocci Charges/Coding Procedures Integumentary 111xxx-113xx: [id number] Lakeisha subq tissue 20 sq cm/< Physical Exam Const alert, oriented x3 and no apparent distress General Appearance: cooperative and comfortable HEENT normocephalic Head and Scalp: normal to inspection, normocephalic and atraumatic Eyes EOMs intact bilaterally Neck full ROM and supple General: normal visual inspection Resp normal respiratory effort Effort and Inspection: able to speak in complete sentences Extremity normal to inspection General Extremity: edema Skin Wounds: wounds noted bed granulating well, margins well defined, no odor and open Neuro oriented x3 and CN's II-XII intact bilaterally Psych mental status grossly normal Appearance: grossly normal Debridement Note Debridement Note Wound debrided: Left medial ankle Type of Debridement: Excisional debridement Anesthesia Used: 4% Lidocaine Solution Depth: Down to and including healthy tissue and in the subcutaneous layer Percentage of wound debrided: 100 Instrument Used: 5mm curette Tissue Removed: Slough and devitalized tissue Severity: Fat Layer Exposed Amount of bleeding with debridement: Mild Bleeding Controlled with: Pressure Post-Debridement Measurements and Additional Note: Post-Debridement Measurements/Treatment - Nurse 1 - General Ulcer Assessment Start: 05/08/24 08:09 Freq: Status: Active Protocol: [email or web address] Activity Type Activity Date Activity User E-sign Co-sign Detail Recorded Client Recorded Date Recorded By Document 05/08/24 08:09 KW ; 05/08/24 08:13 KW Document 05/15/24 08:41 KW f 05/15/24 08:46 KW 05/08/24 05/15/24 08:09 08:41 - Today's Visit Information Type of service Follow-up Visit Follow-up Visit (Physician/[employer] (Physician/[employer] ) ) Arrival Mode Ambulatory Ambulatory Patient Identification Verified (Name & Yes ) Height and Weight Body Mass Index (BMI) 31.4 31.4 BMI Classification Obese Obese Vital Signs Temperature (97.8 F-99.1 F) 98.1 F 97.1 F L Temperature Source Temporal Temporal Pulse Rate (60-100) 84 87 Pulse Location Monitor Monitor Respiratory Rate (12-18) 18 18 Respiratory rate source Observation Observation Oxygen Delivery Method Room Air Room Air Blood Pressure (90/60-120/80) 154/78 H 149/83 H Blood Pressure Mean (mm Hg) 103 105 Source Monitor Monitor Position Semi-Fowlers Sitting Blood Pressure Location Left Arm Right Arm History Since Last Visit- (Skip if this is Patient's initial visit) Have you changed medications since your No No last visit? Any new allergies or adverse reactions No No Had a fall/change in ADL's that may No No increase risk of falls Signs or symptoms of abuse and/or No No neglect since last visit Have you been in the hospital since your No No last visit? Has dressing in place as prescribed Yes Yes Has compression in place as prescribed N/A Yes Has offloadiing in place as prescribed N/A N/A Experienced any changes in pain level or No No management Left Footwear Regular Shoe Regular Shoe Right Footwear Regular Shoe Regular Shoe Pain Scale: 0-10 Numeric Is Patient Pain Free? Yes Yes WC - Nurse 1 - General Ulcer Measurement Start: 05/08/24 08:09 Freq: Status: Active Protocol: Activity Type Activity Date Activity User E-sign Co-sign Detail Recorded Client Recorded Date Recorded By Document 05/08/24 08:09 KW ; 05/08/24 08:13 KW Document 05/15/24 08:41 KW f 05/15/24 08:46 KW 05/08/24 05/15/24 08:09 08:41 Wound Center Nurse 1 #10 Left Medial Ankle -Current Size (cm) - Length 3.5 3.8 -Current Size (cm) - Width 2 1.5 -Current Size (cm) - Depth 0.2 0.3 -Total Square Cm 7.0 5.70 -Date of Last Picture (Recall this 05/08/24 05/15/24 field) -Exudate Amt Small Medium -Exudate Type Serosanguineous Serosanguineous -Wound Margin Distinct, Distinct, Outline Outline Attached Attached -Granulation Amt Medium (34-66%) Large (67-100%) -Granulation Quality [place],Red [place] -Necrosis Amt Medium (34-66%) Small (1-33%) -Necrotic Tissue Type Adherent Slough Adherent Slough -Texture (Ara-wound Skin Appearance) Assessed Assessed -Moisture (Ara-wound Skin Appearance) Assessed,Dry/ Assessed Scaly -Color (Ara-wound Skin Appearance) Assessed Assessed -Temperature (Ara-wound Skin No Abnormality No Abnormality Appearance) (Pt Warm) (Pt Warm) -Tenderness on Palpation (Ara-wound No No Skin Appearance) -Ulcer Cleansing Rinsed/ Rinsed/ Irrigated with Irrigated with Saline Saline -Foul Odor after Cleansing No No -Anesthetic Used 5% Lidocaine 5% Lidocaine Gel Gel WC - Nurse 2 - General Ulcer CM Notes Start: 05/08/24 08:09 Freq: Status: Active Protocol: Activity Type Activity Date Activity User E-sign Co-sign Detail Recorded Client Recorded Date Recorded By Document 05/08/24 08:22 [facility] 05/08/24 08:31 Document 05/15/24 09:18 [facility] 05/15/24 09:19 05/08/24 05/15/24 08:22 09:18 Wound Center Nurse 2 #10 Left Medial Ankle -Time 08:23 09:19 -Correct Patient Yes Yes -Correct Side, Site, Position Yes Yes -Correct Procedure Yes Yes -Procedure Performed Yes Yes -Type of Procedure Debridement Debridement -Clinical Debridement Subcutaneous Subcutaneous -Tissue Removed Subcutaneous Subcutaneous -Post Debridement (cm) - Length 3.4 3.5 -Post Debridement (cm) - Width 2.0 1.9 -Post Debridement (cm) - Depth 0.3 0.2 -Total Square (Post) (cm) 6.80 6.65 -Area of Debridement (cm) - Length 3.4 3.5 -Area of Debridement (cm) - Width 2.0 1.9 -Total Square (Area) (cm) 6.80 6.65 -Tunneling No No -Undermining/Tunneling No No -Circular Undermining No No -Wound/Ulcer Outcome Not Healed Not Healed -Ulcer Cleansing Rinsed/ Rinsed/ Irrigated with Irrigated with Saline Saline -Foul Odor after Cleansing No No -Bioengineered Tissue No No -Bleeding Controlled with Pressure Pressure -Treatment Response Procedure Procedure Tolerated Well Tolerated Well -Debridement - Subq, 1st 20sq cm Yes Yes Pain Scale: 0-10 Numeric Is Patient Pain Free? Yes Yes KIMBERLY - Nurse 3 - General Ulcer D/C NN Start: 05/08/24 08:09 Freq: Status: Active Protocol: Activity Type Activity Date Activity User E-sign Co-sign Detail Recorded Client Recorded Date Recorded By Document 05/08/24 08:35 GM 05/08/24 08:35 05/08/24 08:35 Wound Care Center Nurse 3 #10 Left Medial Ankle -Ulcer Cleansing Not Cleansed -Primary Dressing Covered/Secured with Secured with Tape,Other -Other Covering abd pad Pain Scale: 0-10 Numeric Is Patient Pain Free? Yes WC - Visit Discharge Discharge Condition Stable Ambulatory Status Ambulatory Transportation Private Auto Clinical Summary of Care Provided Yes Assessment/Plan Assessment/Plan (1) Ulcer of left lower extremity with fat layer exposed: CODE(S): L97.922 - Non-pressure chronic ulcer of unspecified part of left lower leg with fat layer exposed (2) PVD (peripheral vascular disease): CODE(S): I73.9 - Peripheral vascular disease, unspecified (3) Chronic venous insufficiency: CODE(S): I87.2 - Venous insufficiency (chronic) (peripheral) (4) Delayed wound healing: CODE(S): T14.8XXD - Other injury of unspecified body region, subsequent encounter PLAN: Plan Debridement done as documented above, procedure was well-tolerated. Stable. No significant change. Cultures reviewed, prescription for levofloxacin and metronidazole sent per culture and sensitivity. He was advised to take Benadryl 30 minutes before levofloxacin, documented allergy to ciprofloxacin however, he states that this was a mild rash/itching. Continue 10 minutes Dakins soak daily. Continue Aquacel extra, Adaptic and KerraMax. He was advised that he could change it more than once if he notes increased drainage. Continue mupirocin ointment as well. Continue use of compression stockings, leg elevation and exercise. Increased protein intake, protein supplements, zinc and vitamin D. His questions were answered and he was advised to call with any further questions or concerns. Follow-up in 2 weeks. This note was generated with Create dictation software. It may contain incorrect words, spelling, and punctuation that were not noted in checking the note before signing.
== END 2024-05-28 23:59 | disposition home or self-care (01) ==
LOC: WC 08:45
PROVIDERS: PCP Family Medicine; Referring Provider Family Medicine; Visit Provider Internal Medicine
DX: I73.9 Peripheral vascular disease, unspecified (principal); L97.322 Non-pressure chronic ulcer of left ankle with fat layer exposed; I87.2 Venous insufficiency (chronic) (peripheral); R60.0 Localized edema
CPT/HCPCS: 11042; 87070; 87075; 87077; 87186; 87205

== ENCOUNTER 2024-06-19 08:00 | Outpatient (RCR) | payer OTHER, SELFPAY ==
[2024-05-29 00:34] VITALS: BP 148/81; PULSE 86; RESP 18; TEMP 36.6; O2SAT 99; BMI 31.4
[2024-05-29 08:46] VITALS: BP 152/79; PULSE 85; RESP 16; TEMP 35.6; BMI 31.4
--- NOTE | 2024-05-29 10:00 | PN.PCM_ITS ---
History of Present Illness Date of Service: 05/29/24 Chief Complaint: ulcers to the left lower leg History of Wound: This is a 54-year-old male presents to wound healing center with a long-standing history of chronic venous insufficiency, chronic venous hypertension, lower extremity edema, lower extremity pain, and chronic left lower extremity ulcer. The patient has previously undergone endovenous laser ablation of the left and right great saphenous vein, the small saphenous vein, the left accessory saphenous vein, and an incompetent left calf social director vein located 15 cm proximal to the left medial malleolus. He is currently wearing graduated compression stockings which are documented to be 20-30 mmHg compression and these are thigh high. He reports great compliance with use. He is also had previous arterial work-up with no intervention recommended by letter, his vascular surgeon. He denies taking nutritional supplementation. He saw dermatology and had a biopsy of the ulcer site. He also was previously treated by infectious disease for various contaminations and infections. He is not antibiotics at this time nor does he have any redness or odor coming from the wound. He denies fever, chill, nausea, vomiting, loss of appetite. 05/18/22: Mr. Jeronimo presents with a new right lower extremity ulceration. He states that this has been present for months and he has been trying to manage it at home without any significant improvement. Opened up months ago, no known precipitating factor. Has been applying wound dressings without any significant improvement. He reports increased drainage. Denies significant pain. No chills, fever or feeling of unwell. Progress of Wound: No new concerns at this time. Has completed antibiotics. Denies increased pain, drainage or redness. He states that he has been doing dressing changes as recommended. Objective Data Objective Data Vital Signs: Vital Signs Temp Pulse Resp BP Pulse Ox 96.1 F L 85 16 152/79 H 99 05/29/24 08:46 05/29/24 08:46 05/29/24 08:46 05/29/24 08:46 05/29/24 00:34 Body Mass Index (BMI) 31.4 Charges/Coding Procedures Integumentary 111xxx-113xx: 42326 Lakeisha subq tissue 20 sq cm/< Physical Exam Const alert, oriented x3 and no apparent distress General Appearance: cooperative and comfortable HEENT normocephalic Head and Scalp: normal to inspection, normocephalic and atraumatic Eyes EOMs intact bilaterally Neck full ROM and supple General: normal visual inspection Resp normal respiratory effort Effort and Inspection: able to speak in complete sentences Extremity normal to inspection General Extremity: edema Skin Wounds: wounds noted bed granulating well, margins well defined, no odor and open Neuro oriented x3 and CN's II-XII intact bilaterally Psych mental status grossly normal Appearance: grossly normal Debridement Note Debridement Note Wound debrided: Left medial ankle Type of Debridement: Excisional debridement Anesthesia Used: 4% Lidocaine Solution Depth: Down to and including healthy tissue and in the subcutaneous layer Percentage of wound debrided: 100 Instrument Used: 5mm curette Tissue Removed: Slough and devitalized tissue Severity: Fat Layer Exposed Amount of bleeding with debridement: Mild Bleeding Controlled with: Pressure Patient tolerated procedure: Patient tolerated procedure well Post-Debridement Measurements and Additional Note: Post-Debridement Measurements/Treatment - Nurse 1 - General Ulcer Assessment Start: 05/29/24 08:45 Freq: Status: Active Protocol: SHANTA Activity Type Activity Date Activity User E-sign Co-sign Detail Recorded Client Recorded Date Recorded By Document 05/29/24 08:46 05/29/24 08:48 MALORIE 05/29/24 08:46 - Today's Visit Information Type of service Follow-up Visit (Physician/STRATEGIC DEBRIEFING SPECIALIST ) Arrival Mode Ambulatory Transfer Assistance None Patient Identification Verified (Name & Yes ) Patient Requires Transmission-Based No Precautions Height and Weight Body Mass Index (BMI) 31.4 BMI Classification Obese Vital Signs Temperature (97.8 F-99.1 F) 96.1 F L Temperature Source Temporal Pulse Rate (60-100) 85 Pulse Location Monitor Respiratory Rate (12-18) 16 Respiratory rate source Observation Blood Pressure (90/60-120/80) 152/79 H Blood Pressure Mean (mm Hg) 103 Source Monitor Position Sitting Blood Pressure Location Left Arm History Since Last Visit- (Skip if this is Patient's initial visit) Have you changed medications since your No last visit? Any new allergies or adverse reactions No Had a fall/change in ADL's that may No increase risk of falls Signs or symptoms of abuse and/or No neglect since last visit Have you been in the hospital since your No last visit? Has dressing in place as prescribed Yes Has compression in place as prescribed Yes Has offloadiing in place as prescribed N/A Experienced any changes in pain level or No management Left Footwear Regular Shoe Right Footwear Regular Shoe Pain Scale: 0-10 Numeric Is Patient Pain Free? Yes - Nurse 1 - General Ulcer Measurement Start: 05/29/24 08:45 Freq: Status: Active Protocol: Activity Type Activity Date Activity User E-sign Co-sign Detail Recorded Client Recorded Date Recorded By Document 05/29/24 08:46 05/29/24 08:48 05/29/24 08:46 Wound Center Nurse 1 #10 Left Medial Ankle -Current Size (cm) - Length 2.8 -Current Size (cm) - Width 0.9 -Current Size (cm) - Depth 0.1 -Total Square Cm 2.52 -Photo Taken No -Exudate Amt Small -Exudate Type Serosanguineous -Wound Margin Flat & Intact -Granulation Amt Large (67-100%) -Granulation Quality [place] -Slough/Fibrin Yes -Necrosis Amt Small (1-33%) -Necrotic Tissue Type Adherent Slough -Structure Exposed N/A -Texture (Ara-wound Skin Appearance) No Abnormality -Moisture (Ara-wound Skin Appearance) No Abnormality -Color (Ara-wound Skin Appearance) No Abnormality -Temperature (Ara-wound Skin No Abnormality Appearance) (Pt Warm) -Tenderness on Palpation (Ara-wound No Skin Appearance) -Ulcer Cleansing Rinsed/ Irrigated with Saline -Foul Odor after Cleansing No -Anesthetic Used 5% Lidocaine Gel Right Calf (cm) 37.5 Right Ankle (cm) 23.2 - Nurse 2 - General Ulcer CM Notes Start: 05/29/24 08:45 Freq: Status: Active Protocol: Activity Type Activity Date Activity User E-sign Co-sign Detail Recorded Client Recorded Date Recorded By Document 05/29/24 09:17 05/29/24 09:21 05/29/24 09:17 Wound Center Nurse 2 #10 Left Medial Ankle -Time 09:17 -Correct Patient Yes -Correct Side, Site, Position Yes -Correct Procedure Yes -Procedure Performed Yes -Type of Procedure Debridement -Clinical Debridement Subcutaneous -Tissue Removed Subcutaneous -Post Debridement (cm) - Length 3.5 -Post Debridement (cm) - Width 1.5 -Post Debridement (cm) - Depth 0.2 -Total Square (Post) (cm) 5.25 -Area of Debridement (cm) - Length 3.5 -Area of Debridement (cm) - Width 1.5 -Total Square (Area) (cm) 5.25 -Tunneling No -Undermining/Tunneling No -Circular Undermining No -Wound/Ulcer Outcome Not Healed -Ulcer Cleansing Rinsed/ Irrigated with Saline -Foul Odor after Cleansing No -Bleeding Controlled with Pressure -Treatment Response Procedure Tolerated Well -Debridement - Subq, 1st 20sq cm Yes Pain Scale: 0-10 Numeric Is Patient Pain Free? Yes - Nurse 3 - General Ulcer D/C NN Start: 05/29/24 08:45 Freq: Status: Active Protocol: Activity Type Activity Date Activity User E-sign Co-sign Detail Recorded Client Recorded Date Recorded By Document 05/29/24 09:26 JF 000 05/29/24 09:26 JF 05/29/24 09:26 Wound Care Center Nurse 3 #10 Left Medial Ankle -Ulcer Cleansing Rinsed/ Irrigated with Saline -Foul Odor after Cleansing No -Other Dressing ABDOMEN -Primary Dressing Covered/Secured with Dry Gauze, Secured with Tape Pain Scale: 0-10 Numeric Is Patient Pain Free? Yes WC - Visit Discharge Discharge Condition Stable Ambulatory Status Ambulatory Transportation Private Auto Medication Reconcilliation completed & Yes provided to patient/care provider Clinical Summary of Care Provided Yes Assessment/Plan Assessment/Plan (1) Ulcer of left lower extremity with fat layer exposed: CODE(S): L97.922 - Non-pressure chronic ulcer of unspecified part of left lower leg with fat layer exposed (2) PVD (peripheral vascular disease): CODE(S): I73.9 - Peripheral vascular disease, unspecified (3) Chronic venous insufficiency: CODE(S): I87.2 - Venous insufficiency (chronic) (peripheral) (4) Delayed wound healing: CODE(S): T14.8XXD - Other injury of unspecified body region, subsequent encounter PLAN: Plan Debridement done as documented above, procedure was well-tolerated. Improved since his last visit. Has completed antibiotics. No new concerns reported as above. Continue 10 minutes Dakins soak daily. Continue Aquacel extra, Adaptic and KerraMax. He was advised that he could change it more than once if he notes increased drainage. Continue mupirocin ointment as well. Continue use of compression stockings, leg elevation and exercise. Increased protein intake, protein supplements, zinc and vitamin D. His questions were answered and he was advised to call with any further questions or concerns. Follow-up in 1 week. This note was generated with [employer] software. It may contain incorrect words, spelling, and punctuation that were not noted in checking the note before signing.
[2024-06-05 08:01] VITALS: BP 144/79; PULSE 89; RESP 18; TEMP 35.7; BMI 31.4
--- NOTE | 2024-06-05 08:31 | PCM.WC.PN ---
History of Present Illness Date of Service: 06/05/24 Chief Complaint: ulcers to the left lower leg History of Wound: This is a 54-year-old male presents to wound healing center with a long-standing history of chronic venous insufficiency, chronic venous hypertension, lower extremity edema, lower extremity pain, and chronic left lower extremity ulcer. The patient has previously undergone endovenous laser ablation of the left and right great saphenous vein, the small saphenous vein, the left accessory saphenous vein, and an incompetent left calf enterprise project manager vein located 15 cm proximal to the left medial malleolus. He is currently wearing graduated compression stockings which are documented to be 20-30 mmHg compression and these are thigh high. He reports great compliance with use. He is also had previous arterial work-up with no intervention recommended by letter, his vascular surgeon. He denies taking nutritional supplementation. He saw dermatology and had a biopsy of the ulcer site. He also was previously treated by infectious disease for various contaminations and infections. He is not antibiotics at this time nor does he have any redness or odor coming from the wound. He denies fever, chill, nausea, vomiting, loss of appetite. 05/18/22: Mr. Jeronimo presents with a new right lower extremity ulceration. He states that this has been present for months and he has been trying to manage it at home without any significant improvement. Opened up months ago, no known precipitating factor. Has been applying wound dressings without any significant improvement. He reports increased drainage. Denies significant pain. No chills, fever or feeling of unwell. Progress of Wound: No new concerns reported at this time. Largely stable. He denies increased drainage, pain or redness. Has been wearing his compression. Objective Data Objective Data Vital Signs: Vital Signs Temp Pulse Resp BP Pulse Ox O2 Del Method 96.3 F L 89 18 144/79 H 99 Room Air 06/05/24 08:01 06/05/24 08:01 06/05/24 08:01 06/05/24 08:01 05/29/24 00:34 06/05/24 08:01 Oxygen Delivery Method Room Air Body Mass Index (BMI) 31.4 Charges/Coding Procedures Integumentary 111xxx-113xx: 00495 Lakeisha subq tissue 20 sq cm/< Physical Exam Const alert, oriented x3 and no apparent distress General Appearance: cooperative and comfortable HEENT normocephalic Head and Scalp: normal to inspection, normocephalic and atraumatic Eyes EOMs intact bilaterally Neck full ROM and supple General: normal visual inspection Resp normal respiratory effort Effort and Inspection: able to speak in complete sentences Extremity normal to inspection General Extremity: edema Skin Wounds: wounds noted bed granulating well, margins well defined, no odor and open Neuro oriented x3 and CN's II-XII intact bilaterally Psych mental status grossly normal Appearance: grossly normal Debridement Note Debridement Note Wound debrided: Left medial ankle Type of Debridement: Excisional debridement Anesthesia Used: 4% Lidocaine Solution Depth: Down to and including healthy tissue and in the subcutaneous layer Instrument Used: 5mm curette Tissue Removed: Slough and devitalized tissue Severity: Fat Layer Exposed Amount of bleeding with debridement: Mild Bleeding Controlled with: Pressure Patient tolerated procedure: Patient tolerated procedure well Post-Debridement Measurements and Additional Note: Post-Debridement Measurements/Treatment - Nurse 1 - General Ulcer Assessment Start: 05/29/24 08:45 Freq: Status: Active Protocol: SHANTA Activity Type Activity Date Activity User E-sign Co-sign Detail Recorded Client Recorded Date Recorded By Document 05/29/24 08:46 05/29/24 08:48 CP Document 06/05/24 08:01 KW xfh 06/05/24 08:05 KW 05/29/24 06/05/24 08:46 08:01 - Today's Visit Information Type of service Follow-up Visit Follow-up Visit (Physician/REMOTE BROADCAST ENGINEER (Physician/REMOTE BROADCAST ENGINEER ) ) Arrival Mode Ambulatory Ambulatory Transfer Assistance None Patient Identification Verified (Name & Yes Yes ) Patient Requires Transmission-Based No Precautions Height and Weight Body Mass Index (BMI) 31.4 31.4 BMI Classification Obese Obese Vital Signs Temperature (97.8 F-99.1 F) 96.1 F L 96.3 F L Temperature Source Temporal Temporal Pulse Rate (60-100) 85 89 Pulse Location Monitor Monitor Respiratory Rate (12-18) 16 18 Respiratory rate source Observation Observation Oxygen Delivery Method Room Air Blood Pressure (90/60-120/80) 152/79 H 144/79 H Blood Pressure Mean (mm Hg) 103 100 Source Monitor Monitor Position Sitting Semi-Fowlers Blood Pressure Location Left Arm Right Arm History Since Last Visit- (Skip if this is Patient's initial visit) Have you changed medications since your No No last visit? Any new allergies or adverse reactions No No Had a fall/change in ADL's that may No No increase risk of falls Signs or symptoms of abuse and/or No No neglect since last visit Have you been in the hospital since your No No last visit? Has dressing in place as prescribed Yes Yes Has compression in place as prescribed Yes Yes Has offloadiing in place as prescribed N/A N/A Experienced any changes in pain level or No No management Left Footwear Regular Shoe Regular Shoe Right Footwear Regular Shoe Regular Shoe Pain Scale: 0-10 Numeric Is Patient Pain Free? Yes Yes WC - Nurse 1 - General Ulcer Measurement Start: 05/29/24 08:45 Freq: Status: Active Protocol: Activity Type Activity Date Activity User E-sign Co-sign Detail Recorded Client Recorded Date Recorded By Document 05/29/24 08:46 CP 05/29/24 08:48 CP Document 06/05/24 08:01 KW [facility] 06/05/24 08:05 KW 05/29/24 06/05/24 08:46 08:01 Wound Center Nurse 1 #10 Left Medial Ankle -Current Size (cm) - Length 2.8 3 -Current Size (cm) - Width 0.9 1 -Current Size (cm) - Depth 0.1 0.2 -Total Square Cm 2.52 3 -Photo Taken No -Exudate Amt Small Small -Exudate Type Serosanguineous Serosanguineous -Wound Margin Flat & Intact Distinct, Outline Attached -Granulation Amt Large (67-100%) Large (67-100%) -Granulation Quality [place],Red -Slough/Fibrin Yes -Necrosis Amt Small (1-33%) -Necrotic Tissue Type Adherent Slough -Structure Exposed N/A -Texture (Ara-wound Skin Appearance) No Abnormality Assessed -Moisture (Ara-wound Skin Appearance) No Abnormality Assessed,Dry/ Scaly -Color (Ara-wound Skin Appearance) No Abnormality Assessed -Temperature (Ara-wound Skin No Abnormality No Abnormality Appearance) (Pt Warm) (Pt Warm) -Tenderness on Palpation (Ara-wound No Skin Appearance) -Ulcer Cleansing Rinsed/ Rinsed/ Irrigated with Irrigated with Saline Saline -Foul Odor after Cleansing No No -Anesthetic Used 5% Lidocaine 5% Lidocaine Gel Gel Right Calf (cm) 37.5 Right Ankle (cm) 23.2 - Nurse 2 - General Ulcer CM Notes Start: 05/29/24 08:45 Freq: Status: Active Protocol: Activity Type Activity Date Activity User E-sign Co-sign Detail Recorded Client Recorded Date Recorded By Document 05/29/24 09:17 CP 05/29/24 09:21 CP Document 06/05/24 08:27 [facility] 06/05/24 08:28 05/29/24 06/05/24 09:17 08:27 Wound Center Nurse 2 #10 Left Medial Ankle -Time 09:17 08:27 -Correct Patient Yes Yes -Correct Side, Site, Position Yes Yes -Correct Procedure Yes Yes -Procedure Performed Yes Yes -Type of Procedure Debridement Debridement -Clinical Debridement Subcutaneous Subcutaneous -Tissue Removed Subcutaneous Subcutaneous -Post Debridement (cm) - Length 3.5 3.3 -Post Debridement (cm) - Width 1.5 1.7 -Post Debridement (cm) - Depth 0.2 0.2 -Total Square (Post) (cm) 5.25 5.61 -Area of Debridement (cm) - Length 3.5 3.3 -Area of Debridement (cm) - Width 1.5 1.7 -Total Square (Area) (cm) 5.25 5.61 -Tunneling No No -Undermining/Tunneling No No -Circular Undermining No No -Wound/Ulcer Outcome Not Healed Not Healed -Ulcer Cleansing Rinsed/ Rinsed/ Irrigated with Irrigated with Saline Saline -Foul Odor after Cleansing No No -Bioengineered Tissue No -Bleeding Controlled with Pressure Pressure -Treatment Response Procedure Procedure Tolerated Well Tolerated Well -Debridement - Subq, 1st 20sq cm Yes Yes Pain Scale: 0-10 Numeric Is Patient Pain Free? Yes Yes - Nurse 3 - General Ulcer D/C NN Start: 05/29/24 08:45 Freq: Status: Active Protocol: Activity Type Activity Date Activity User E-sign Co-sign Detail Recorded Client Recorded Date Recorded By Document 05/29/24 09:26 JF 000 05/29/24 09:26 Document 06/05/24 08:27 [facility] 06/05/24 08:28 05/29/24 06/05/24 09:26 08:27 Wound Care Center Nurse 3 #10 Left Medial Ankle -Ulcer Cleansing Rinsed/ Not Cleansed Irrigated with Saline -Foul Odor after Cleansing No No -Primary Dressing Applied Other -Other Dressing ABDOMEN ABD -Primary Dressing Covered/Secured with Dry Gauze, Secured with Secured with Tape Tape Pain Scale: 0-10 Numeric Is Patient Pain Free? Yes Yes Teaching: Wound Center Skin Sub -Person Taught Patient -Teaching Method Discussion -Response to teaching Verbalize Understanding WC - Visit Discharge Discharge Condition Stable Ambulatory Status Ambulatory Transportation Private Auto Medication Reconcilliation completed & Yes provided to patient/care provider Clinical Summary of Care Provided Yes Assessment/Plan Assessment/Plan (1) Ulcer of left lower extremity with fat layer exposed: CODE(S): L97.922 - Non-pressure chronic ulcer of unspecified part of left lower leg with fat layer exposed (2) PVD (peripheral vascular disease): CODE(S): I73.9 - Peripheral vascular disease, unspecified (3) Chronic venous insufficiency: CODE(S): I87.2 - Venous insufficiency (chronic) (peripheral) (4) Delayed wound healing: CODE(S): T14.8XXD - Other injury of unspecified body region, subsequent encounter PLAN: Plan Debridement done as documented above, procedure was well-tolerated. Stable. No significant change or concerns. We discussed a skin substitute which he is open to thinking about. Did not tolerate TheraSkin in the past, will try for EpiFix this time. Continue 10 minutes Dakins soak daily. Continue Aquacel extra, Adaptic and KerraMax. He was advised that he could change it more than once if he notes increased drainage. Continue mupirocin ointment as well. Continue use of compression stockings, leg elevation and exercise. Increased protein intake, protein supplements, zinc and vitamin D. His questions were answered and he was advised to call with any further questions or concerns. Follow-up in 2 weeks. This note was generated with [employer] dictation software. It may contain incorrect words, spelling, and punctuation that were not noted in checking the note before signing.
[2024-06-19 08:05] VITALS: BP 166/73; PULSE 82; RESP 18; TEMP 36.5; BMI 31.4
--- NOTE | 2024-06-19 08:35 | PCM.WC.PN ---
History of Present Illness Date of Service: 06/19/24 Chief Complaint: ulcers to the left lower leg History of Wound: This is a 54-year-old male presents to wound healing center with a long-standing history of chronic venous insufficiency, chronic venous hypertension, lower extremity edema, lower extremity pain, and chronic left lower extremity ulcer. 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 He is currently wearing graduated compression stockings which are documented to be 20-30 mmHg compression and these are thigh high. He reports great compliance with use. He is also had previous arterial work-up with no intervention recommended by letter, his vascular surgeon. He denies taking nutritional supplementation. He saw dermatology and had a biopsy of the ulcer site. He also was previously treated by infectious disease for various contaminations and infections. He is not antibiotics at this time nor does he have any redness or odor coming from the wound. He denies fever, chill, nausea, vomiting, loss of appetite. 05/18/22: Mr. Jeronimo presents with a new right lower extremity ulceration. He states that this has been present for months and he has been trying to manage it at home without any significant improvement. Opened up months ago, no known precipitating factor. Has been applying wound dressings without any significant improvement. He reports increased drainage. Denies significant pain. No chills, fever or feeling of unwell. Progress of Wound: No new concerns reported at this time. He denies pain or increased drainage. Some improvement noted. Skin substitute application denied by insurance. Objective Data Objective Data Vital Signs: Vital Signs Temp Pulse Resp BP Pulse Ox O2 Del Method 97.7 F L 82 18 166/73 H 99 Room Air 06/19/24 08:05 06/19/24 08:05 06/19/24 08:05 06/19/24 08:05 05/29/24 00:34 06/19/24 08:05 Oxygen Delivery Method Room Air Body Mass Index (BMI) 31.4 Charges/Coding Procedures Integumentary 111xxx-113xx: [id number] Lakeisha subq tissue 20 sq cm/< Physical Exam Const alert, oriented x3 and no apparent distress General Appearance: cooperative and comfortable HEENT normocephalic Head and Scalp: normal to inspection, normocephalic and atraumatic Eyes EOMs intact bilaterally Neck full ROM and supple General: normal visual inspection Resp normal respiratory effort Effort and Inspection: able to speak in complete sentences Extremity normal to inspection General Extremity: edema Skin Wounds: wounds noted bed granulating well, margins well defined, no odor and open Neuro oriented x3 and CN's II-XII intact bilaterally Psych mental status grossly normal Appearance: grossly normal Debridement Note Debridement Note Wound debrided: Left medial ankle Type of Debridement: Excisional debridement Anesthesia Used: 5% Lidocaine Gel Depth: Down to and including healthy tissue and in the subcutaneous layer Percentage of wound debrided: 100 Instrument Used: 5mm curette Tissue Removed: Slough and devitalized tissue Severity: Fat Layer Exposed Amount of bleeding with debridement: Mild Bleeding Controlled with: Pressure Patient tolerated procedure: Patient tolerated procedure well Post-Debridement Measurements and Additional Note: Post-Debridement Measurements/Treatment - Nurse 1 - General Ulcer Assessment Start: 05/29/24 08:45 Freq: Status: Active Protocol: SHANTA Activity Type Activity Date Activity User E-sign Co-sign Detail Recorded Client Recorded Date Recorded By Document 05/29/24 08:46 CP 05/29/24 08:48 CP Document 06/05/24 08:01 KW xfh 06/05/24 08:05 KW Document 06/19/24 08:05 KW [id number] 06/19/24 08:11 KW 05/29/24 06/05/24 06/19/24 08:46 08:01 08:05 - Today's Visit Information Type of service Follow-up Visit Follow-up Visit Follow-up Visit (Physician/REVENUE SPECIALIST (Physician/REVENUE SPECIALIST (Physician/REVENUE SPECIALIST ) ) ) Arrival Mode Ambulatory Ambulatory Ambulatory Transfer Assistance None Patient Identification Verified (Name & Yes Yes Yes ) Patient Requires Transmission-Based No Precautions Height and Weight Body Mass Index (BMI) 31.4 31.4 31.4 BMI Classification Obese Obese Obese Vital Signs Temperature (97.8 F-99.1 F) 96.1 F L 96.3 F L 97.7 F L Temperature Source Temporal Temporal Temporal Pulse Rate (60-100) 85 89 82 Pulse Location Monitor Monitor Monitor Respiratory Rate (12-18) 16 18 18 Respiratory rate source Observation Observation Observation Oxygen Delivery Method Room Air Room Air Blood Pressure (90/60-120/80) 152/79 H 144/79 H 166/73 H Blood Pressure Mean (mm Hg) 103 100 104 Source Monitor Monitor Monitor Position Sitting Semi-Fowlers Sitting Blood Pressure Location Left Arm Right Arm Left Arm History Since Last Visit- (Skip if this is Patient's initial visit) Have you changed medications since your No No No last visit? Any new allergies or adverse reactions No No No Had a fall/change in ADL's that may No No No increase risk of falls Signs or symptoms of abuse and/or No No No neglect since last visit Have you been in the hospital since your No No No last visit? Has dressing in place as prescribed Yes Yes Yes Has compression in place as prescribed Yes Yes Yes Has offloadiing in place as prescribed N/A N/A N/A Experienced any changes in pain level or No No No management Left Footwear Regular Shoe Regular Shoe Regular Shoe Right Footwear Regular Shoe Regular Shoe Regular Shoe Pain Scale: 0-10 Numeric Is Patient Pain Free? Yes Yes Yes WC - Nurse 1 - General Ulcer Measurement Start: 05/29/24 08:45 Freq: Status: Active Protocol: Activity Type Activity Date Activity User E-sign Co-sign Detail Recorded Client Recorded Date Recorded By Document 05/29/24 08:46 05/29/24 08:48 CP Document 06/05/24 08:01 KW xfh 06/05/24 08:05 KW Document 06/19/24 08:05 KW [id number] 06/19/24 08:11 KW 05/29/24 06/05/24 06/19/24 08:46 08:01 08:05 Wound Center Nurse 1 #10 Left Medial Ankle -Current Size (cm) - Length 2.8 3 3 -Current Size (cm) - Width 0.9 1 1 -Current Size (cm) - Depth 0.1 0.2 0.2 -Total Square Cm 2.52 3 3 -Photo Taken No -Exudate Amt Small Small Medium -Exudate Type Serosanguineous Serosanguineous Serosanguineous -Wound Margin Flat & Intact Distinct, Distinct, Outline Outline Attached Attached -Granulation Amt Large (67-100%) Large (67-100%) Large (67-100%) -Granulation Quality [place],Red [place] -Slough/Fibrin Yes -Necrosis Amt Small (1-33%) Small (1-33%) -Necrotic Tissue Type Adherent Slough Adherent Slough -Structure Exposed N/A -Texture (Ara-wound Skin Appearance) No Abnormality Assessed Assessed -Moisture (Ara-wound Skin Appearance) No Abnormality Assessed,Dry/ Assessed,Dry/ Scaly Scaly -Color (Ara-wound Skin Appearance) No Abnormality Assessed Assessed -Temperature (Ara-wound Skin No Abnormality No Abnormality No Abnormality Appearance) (Pt Warm) (Pt Warm) (Pt Warm) -Tenderness on Palpation (Ara-wound No No Skin Appearance) -Ulcer Cleansing Rinsed/ Rinsed/ Rinsed/ Irrigated with Irrigated with Irrigated with Saline Saline Saline -Foul Odor after Cleansing No No No -Anesthetic Used 5% Lidocaine 5% Lidocaine 5% Lidocaine Gel Gel Gel Right Calf (cm) 37.5 Right Ankle (cm) 23.2 WC - Nurse 2 - General Ulcer CM Notes Start: 05/29/24 08:45 Freq: Status: Active Protocol: Activity Type Activity Date Activity User E-sign Co-sign Detail Recorded Client Recorded Date Recorded By Document 05/29/24 09:17 05/29/24 09:21 CP Document 06/05/24 08:27 [facility] 06/05/24 08:28 Document 06/19/24 08:28 [id number] 06/19/24 08:32 05/29/24 06/05/24 06/19/24 09:17 08:27 08:28 Wound Center Nurse 2 #10 Left Medial Ankle -Time 09:17 08:27 08:29 -Correct Patient Yes Yes Yes -Correct Side, Site, Position Yes Yes Yes -Correct Procedure Yes Yes Yes -Procedure Performed Yes Yes Yes -Type of Procedure Debridement Debridement Debridement -Clinical Debridement Subcutaneous Subcutaneous Subcutaneous -Tissue Removed Subcutaneous Subcutaneous Subcutaneous -Post Debridement (cm) - Length 3.5 3.3 -Post Debridement (cm) - Width 1.5 1.7 -Post Debridement (cm) - Depth 0.2 0.2 -Total Square (Post) (cm) 5.25 5.61 -Area of Debridement (cm) - Length 3.5 3.3 -Area of Debridement (cm) - Width 1.5 1.7 -Total Square (Area) (cm) 5.25 5.61 -Tunneling No No No -Undermining/Tunneling No No No -Circular Undermining No No No -Wound/Ulcer Outcome Not Healed Not Healed Not Healed -Ulcer Cleansing Rinsed/ Rinsed/ Rinsed/ Irrigated with Irrigated with Irrigated with Saline Saline Saline -Foul Odor after Cleansing No No No -Bioengineered Tissue No No -Bleeding Controlled with Pressure Pressure Silver Nitrate -Treatment Response Procedure Procedure Procedure Tolerated Well Tolerated Well Tolerated Well -Debridement - Subq, 1st 20sq cm Yes Yes Yes Pain Scale: 0-10 Numeric Is Patient Pain Free? Yes Yes Yes - Nurse 3 - General Ulcer D/C NN Start: 05/29/24 08:45 Freq: Status: Active Protocol: Activity Type Activity Date Activity User E-sign Co-sign Detail Recorded Client Recorded Date Recorded By Document 05/29/24 09:26 000 05/29/24 09:26 Document 06/05/24 08:27 [facility] 06/05/24 08:28 05/29/24 06/05/24 09:26 08:27 Wound Care Center Nurse 3 #10 Left Medial Ankle -Ulcer Cleansing Rinsed/ Not Cleansed Irrigated with Saline -Foul Odor after Cleansing No No -Primary Dressing Applied Other -Other Dressing ABDOMEN ABD -Primary Dressing Covered/Secured with Dry Gauze, Secured with Secured with Tape Tape Pain Scale: 0-10 Numeric Is Patient Pain Free? Yes Yes Teaching: Wound Center Skin Sub -Person Taught Patient -Teaching Method Discussion -Response to teaching Verbalize Understanding - Visit Discharge Discharge Condition Stable Ambulatory Status Ambulatory Transportation Private Auto Medication Reconcilliation completed & Yes provided to patient/care provider Clinical Summary of Care Provided Yes Assessment/Plan Assessment/Plan (1) Ulcer of left lower extremity with fat layer exposed: CODE(S): L97.922 - Non-pressure chronic ulcer of unspecified part of left lower leg with fat layer exposed (2) PVD (peripheral vascular disease): CODE(S): I73.9 - Peripheral vascular disease, unspecified (3) Chronic venous insufficiency: CODE(S): I87.2 - Venous insufficiency (chronic) (peripheral) (4) Delayed wound healing: CODE(S): T14.8XXD - Other injury of unspecified body region, subsequent encounter PLAN: Plan Debridement done as documented above, procedure was well-tolerated. Some improvement noted since his last visit. As above, insurance denied skin substitute. Continue 10 minutes Dakins soak daily. Continue Aquacel extra, Adaptic and KerraMax. He was advised that he could change it more than once if he notes increased drainage. Continue mupirocin ointment as well. Continue use of compression stockings, leg elevation and exercise. Increased protein intake, protein supplements, zinc and vitamin D. His questions were answered and he was advised to call with any further questions or concerns. Follow-up in 2 weeks. This note was generated with [employer] dictation software. It may contain incorrect words, spelling, and punctuation that were not noted in checking the note before signing.
== END 2024-06-28 23:59 | disposition home or self-care (01) ==
LOC: WC 08:00
PROVIDERS: PCP Family Medicine; Referring Provider Family Medicine; Visit Provider Internal Medicine
DX: I87.312 Chronic venous hypertension (idiopathic) with ulcer of left lower extremity (principal); L97.322 Non-pressure chronic ulcer of left ankle with fat layer exposed; I73.9 Peripheral vascular disease, unspecified; R60.0 Localized edema; Z79.82 Long term (current) use of aspirin; Z79.899 Other long term (current) drug therapy
CPT/HCPCS: 11042; 99212; G0463

== ENCOUNTER 2024-07-17 08:00 | Outpatient (RCR) | payer OTHER, SELFPAY ==
[2024-06-29 00:45] VITALS: BP 148/81; PULSE 86; RESP 18; TEMP 36.6; O2SAT 99; BMI 31.4
[2024-07-03 08:06] VITALS: BP 155/89; PULSE 76; RESP 16; TEMP 35.9; BMI 31.4
[2024-07-17 08:12] VITALS: BP 131/95; PULSE 89; RESP 18; TEMP 36.3; BMI 31.4
== END 2024-07-28 23:59 | disposition home or self-care (01) ==
LOC: WC 08:00
PROVIDERS: PCP Family Medicine; Referring Provider Family Medicine; Visit Provider Internal Medicine
DX: I87.312 Chronic venous hypertension (idiopathic) with ulcer of left lower extremity (principal); L97.322 Non-pressure chronic ulcer of left ankle with fat layer exposed; I87.2 Venous insufficiency (chronic) (peripheral); I73.9 Peripheral vascular disease, unspecified; R60.0 Localized edema; Z79.82 Long term (current) use of aspirin
CPT/HCPCS: 11042

== ENCOUNTER 2024-08-28 08:00 | Outpatient (RCR) | payer OTHER, SELFPAY ==
[2024-07-29 00:42] VITALS: BP 148/81; PULSE 86; RESP 18; TEMP 36.6; O2SAT 99; BMI 31.4
[2024-07-31 07:57] VITALS: BP 149/76; PULSE 82; RESP 18; TEMP 36; BMI 31.4
[2024-08-14 08:00] VITALS: BP 151/84; PULSE 98; RESP 18; TEMP 36.1; BMI 31.4
[2024-08-28 08:08] VITALS: BP 146/80; PULSE 90; RESP 16; TEMP 36.1; BMI 31.4
== END 2024-08-28 23:59 | disposition home or self-care (01) ==
LOC: WC 08:00
PROVIDERS: PCP Family Medicine; Referring Provider Family Medicine; Visit Provider Internal Medicine
DX: I87.312 Chronic venous hypertension (idiopathic) with ulcer of left lower extremity (principal); L97.322 Non-pressure chronic ulcer of left ankle with fat layer exposed; I87.2 Venous insufficiency (chronic) (peripheral); R60.0 Localized edema; I73.9 Peripheral vascular disease, unspecified; Z79.82 Long term (current) use of aspirin; Z79.899 Other long term (current) drug therapy; Z87.891 Personal history of nicotine dependence; Z86.14 Personal history of Methicillin resistant Staphylococcus aureus infection
CPT/HCPCS: 11042; 87070; 87075; 87077; 87186; 87205

== ENCOUNTER 2024-09-18 08:45 | Outpatient (RCR) | payer OTHER, SELFPAY ==
[2024-08-29 00:45] VITALS: BP 148/81; PULSE 86; RESP 18; TEMP 36.6; O2SAT 99; BMI 31.4
[2024-09-11 08:08] VITALS: BP 169/79; PULSE 89; RESP 18; TEMP 35.3; BMI 31.4
[2024-09-18 08:45] VITALS: BP 165/86; PULSE 91; RESP 18; TEMP 35.8; BMI 31.4
== END 2024-09-27 23:59 | disposition home or self-care (01) ==
LOC: WC 08:45
PROVIDERS: PCP Family Medicine; Referring Provider Family Medicine; Visit Provider Internal Medicine
DX: I87.312 Chronic venous hypertension (idiopathic) with ulcer of left lower extremity (principal); L97.322 Non-pressure chronic ulcer of left ankle with fat layer exposed; I87.2 Venous insufficiency (chronic) (peripheral); I73.9 Peripheral vascular disease, unspecified; R60.0 Localized edema; Z79.82 Long term (current) use of aspirin; Z79.899 Other long term (current) drug therapy
CPT/HCPCS: 11042

== ENCOUNTER 2024-10-23 08:00 | Outpatient (RCR) | payer OTHER, SELFPAY ==
[2024-09-28 00:27] VITALS: BP 148/81; PULSE 86; RESP 18; TEMP 36.6; O2SAT 99; BMI 31.4
[2024-10-16 09:16] VITALS: BP 164/87; PULSE 102; RESP 18; TEMP 36.1; BMI 31.4
--- NOTE | 2024-10-16 12:31 | PCM.WC.PN ---
History of Present Illness Date of Service: 10/16/24 Chief Complaint: ulcers to the left lower leg History of Wound: This is a 54-year-old male presents to wound healing center with a long-standing history of chronic venous insufficiency, chronic venous hypertension, lower extremity edema, lower extremity pain, and chronic left lower extremity ulcer. The patient has previously undergone endovenous laser ablation of the left and right great saphenous vein, the small saphenous vein, the left accessory saphenous vein, and an incompetent left calf steel checker vein located 15 cm proximal to the left medial malleolus. He is currently wearing graduated compression stockings which are documented to be 20-30 mmHg compression and these are thigh high. He reports great compliance with use. He is also had previous arterial work-up with no intervention recommended by letter, his vascular surgeon. He denies taking nutritional supplementation. He saw dermatology and had a biopsy of the ulcer site. He also was previously treated by infectious disease for various contaminations and infections. He is not antibiotics at this time nor does he have any redness or odor coming from the wound. He denies fever, chill, nausea, vomiting, loss of appetite. 05/18/22: Mr. Jeronimo presents with a new right lower extremity ulceration. He states that this has been present for months and he has been trying to manage it at home without any significant improvement. Opened up months ago, no known precipitating factor. Has been applying wound dressings without any significant improvement. He reports increased drainage. Denies significant pain. No chills, fever or feeling of unwell. 10/16/24: Mr. Jeronimo presents with a new right lower extremity ulceration. He states that it started out as a very small area that was slipping and then in the last week, became rather extensive. He also reports a foul smell. Has noted increase lower extremity edema. He states that he has been wearing his compression (20 to 30 mmHg) consistently. No chills, fever or otherwise feeling of unwell. Also has a new area on his left lower medial leg. He states that he has been applying same 1 products to these new areas. Progress of Wound: Has not been here in about 4 weeks. As above, presents with new areas of ulcerations. Increased bilateral lower extremity edema. Prior medial ankle ulcer essentially the same. He feels well otherwise. Objective Data Objective Data Vital Signs: Vital Signs Temp Pulse Resp BP Pulse Ox O2 Del Method 97 F L 102 H 18 164/87 H 99 Room Air 10/16/24 09:16 10/16/24 09:16 10/16/24 09:16 10/16/24 09:16 09/28/24 00:27 10/16/24 09:16 Oxygen Delivery Method Room Air Body Mass Index (BMI) 31.4 Charges/Coding Procedures Integumentary 111xxx-113xx: 85830 Lakeisha subq tissue 20 sq cm/< Add On Codes: 54108 Lakeisha subq tissue add-on (x1. Additional square centimeter debrided, please refer to clinical note) Physical Exam Const alert, oriented x3 and no apparent distress General Appearance: cooperative and comfortable HEENT normocephalic Head and Scalp: normal to inspection, normocephalic and atraumatic Eyes EOMs intact bilaterally Neck full ROM and supple General: normal visual inspection Resp normal respiratory effort Effort and Inspection: able to speak in complete sentences Extremity normal to inspection General Extremity: edema Skin Wounds: wounds noted bed granulating well, margins well defined, malodorous and open Neuro oriented x3 and CN's II-XII intact bilaterally Psych mental status grossly normal Appearance: grossly normal Debridement Note Debridement Note Wound debrided: Left medial ankle Type of Debridement: Excisional debridement Anesthesia Used: 5% Lidocaine Gel Depth: Down to and including healthy tissue and in the subcutaneous layer Percentage of wound debrided: 100 Instrument Used: 5mm curette Tissue Removed: Slough and devitalized tissue Severity: Fat Layer Exposed Bleeding Controlled with: Pressure Patient tolerated procedure: Patient tolerated procedure well Post-Debridement Measurements and Additional Note: Post-Debridement Measurements/Treatment - Nurse 1 - General Ulcer Assessment Start: 10/16/24 09:14 Freq: Status: Active Protocol: LOWEXPrince Activity Type Activity Date Activity User E-sign Co-sign Detail Recorded Client Recorded Date Recorded By Document 10/16/24 09:16 PR [id number] 10/16/24 09:26 PR 10/16/24 09:16 - Today's Visit Information Type of service Follow-up Visit (Physician/REAL ESTATE PROFESSIONAL ) Arrival Mode Ambulatory Accompanied by self Patient Identification Verified (Name & Yes ) Safety Precautions Fall Prevention Height and Weight Body Mass Index (BMI) 31.4 BMI Classification Obese Vital Signs Temperature (97.8 F-99.1 F) 97 F L Temperature Source Temporal Pulse Rate (60-100) 102 H Pulse Location Monitor Respiratory Rate (12-18) 18 Respiratory rate source Observation Oxygen Delivery Method Room Air Blood Pressure (90/60-120/80) 164/87 H Blood Pressure Mean (mm Hg) 112 Source Monitor Position Sitting Blood Pressure Location Right Arm History Since Last Visit- (Skip if this is Patient's initial visit) Has dressing in place as prescribed Yes Has compression in place as prescribed Yes Has offloadiing in place as prescribed Yes Experienced any changes in pain level or Yes management Left Footwear Regular Shoe Right Footwear Regular Shoe Pain Scale: 0-10 Numeric Is Patient Pain Free? Yes WC - Nurse 1 - General Ulcer Measurement Start: 10/16/24 09:14 Freq: Status: Active Protocol: Activity Type Activity Date Activity User E-sign Co-sign Detail Recorded Client Recorded Date Recorded By Document 10/16/24 09:16 PR [id number] 10/16/24 09:26 PR 10/16/24 09:16 Wound Center Nurse 1 #18 Right Medial Ankle -Current Size (cm) - Length 4.9 -Current Size (cm) - Width 3.3 -Current Size (cm) - Depth 0.1 -Total Square Cm 16.17 -Date of Last Picture (Recall this 10/16/24 field) -Photo Taken Yes -Tunneling No -Undermining/Tunneling No -Circular Undermining No -Classification - Thickness Partial Thickness -Exudate Amt Medium -Exudate Type Serosanguineous -Wound Margin Flat & Intact -Granulation Amt Large (67-100%) -Granulation Quality Pale,[place] -Necrosis Amt Medium (34-66%) -Necrotic Tissue Type Adherent Slough -Texture (Ara-wound Skin Appearance) Assessed -Moisture (Ara-wound Skin Appearance) Assessed -Color (Ara-wound Skin Appearance) Assessed -Temperature (Ara-wound Skin No Abnormality Appearance) (Pt Warm) -Tenderness on Palpation (Ara-wound No Skin Appearance) -Ulcer Cleansing Soap and Water -Foul Odor after Cleansing No -Anesthetic Used 5% Lidocaine Gel #10 Left Medial Ankle -Current Size (cm) - Length 3.7 -Current Size (cm) - Width 1.9 -Current Size (cm) - Depth 0.2 -Total Square Cm 7.03 -Photo Taken No -Tunneling No -Undermining/Tunneling No -Circular Undermining No -Exudate Amt Medium -Exudate Type Serosanguineous -Wound Margin Thickened & Rolled Under -Granulation Amt Medium (34-66%) -Granulation Quality Pale,[place] -Necrosis Amt Small (1-33%) -Necrotic Tissue Type Adherent Slough -Texture (Ara-wound Skin Appearance) Assessed -Moisture (Ara-wound Skin Appearance) Assessed -Color (Ara-wound Skin Appearance) Assessed -Temperature (Ara-wound Skin No Abnormality Appearance) (Pt Warm) -Tenderness on Palpation (Ara-wound No Skin Appearance) -Ulcer Cleansing Soap and Water -Foul Odor after Cleansing No -Anesthetic Used 5% Lidocaine Gel WC - Nurse 2 - General Ulcer CM Notes Start: 10/16/24 09:14 Freq: Status: Active Protocol: Activity Type Activity Date Activity User E-sign Co-sign Detail Recorded Client Recorded Date Recorded By Document 10/16/24 09:59 [id number] 10/16/24 10:11 10/16/24 09:59 Wound Center Nurse 2 #19 Left medial Lower leg -Time 10:00 -Correct Patient Yes -Correct Side, Site, Position Yes -Correct Procedure Yes -Procedure Performed Yes -Type of Procedure Debridement -Clinical Debridement Subcutaneous -Tissue Removed Subcutaneous -Post Debridement (cm) - Length 1.5 -Post Debridement (cm) - Width 0.5 -Post Debridement (cm) - Depth 0.1 -Total Square (Post) (cm) 0.75 -Area of Debridement (cm) - Length 1.5 -Area of Debridement (cm) - Width 0.5 -Total Square (Area) (cm) 0.75 -Tunneling No -Undermining/Tunneling No -Circular Undermining No -Wound/Ulcer Outcome Not Healed -Ulcer Cleansing Rinsed/ Irrigated with Saline -Foul Odor after Cleansing No -Bioengineered Tissue No -Bleeding Controlled with Pressure -Treatment Response Procedure Tolerated Well -Debridement - Subq, 1st 20sq cm No #18 Right Medial Ankle -Time 10:07 -Correct Patient Yes -Correct Side, Site, Position Yes -Correct Procedure Yes -Procedure Performed Yes -Type of Procedure Debridement -Clinical Debridement Subcutaneous -Tissue Removed Subcutaneous -Post Debridement (cm) - Length 5.0 -Post Debridement (cm) - Width 3.0 -Post Debridement (cm) - Depth 0.1 -Total Square (Post) (cm) 15.00 -Area of Debridement (cm) - Length 5.0 -Area of Debridement (cm) - Width 3.0 -Total Square (Area) (cm) 15.00 -Tunneling No -Undermining/Tunneling No -Circular Undermining No -Wound/Ulcer Outcome Not Healed -Ulcer Cleansing Rinsed/ Irrigated with Saline -Foul Odor after Cleansing No -Bioengineered Tissue No -Bleeding Controlled with Pressure -Treatment Response Procedure Tolerated Well -Debridement - Subq, 1st 20sq cm No #10 Left Medial Ankle -Time 09:59 -Correct Patient Yes -Correct Side, Site, Position Yes -Correct Procedure Yes -Procedure Performed Yes -Type of Procedure Debridement -Clinical Debridement Subcutaneous -Tissue Removed Subcutaneous -Post Debridement (cm) - Length 3.5 -Post Debridement (cm) - Width 1.8 -Post Debridement (cm) - Depth 0.3 -Total Square (Post) (cm) 6.30 -Area of Debridement (cm) - Length 3.5 -Area of Debridement (cm) - Width 1.8 -Total Square (Area) (cm) 6.30 -Tunneling No -Undermining/Tunneling No -Circular Undermining No -Wound/Ulcer Outcome Not Healed -Ulcer Cleansing Rinsed/ Irrigated with Saline -Foul Odor after Cleansing No -Bioengineered Tissue No -Bleeding Controlled with Pressure -Treatment Response Procedure Tolerated Well -Debridement - Subq, 1st 20sq cm Yes -Debridement, SubQ, ea addt'l 20sq cm 1 or part thereof Pain Scale: 0-10 Numeric Is Patient Pain Free? Yes WC - Nurse 3 - General Ulcer D/C NN Start: 10/16/24 09:14 Freq: Status: Active Protocol: Activity Type Activity Date Activity User E-sign Co-sign Detail Recorded Client Recorded Date Recorded By Document 10/16/24 10:25 RB [id number] 10/16/24 10:27 RB Edit Result 10/16/24 10:25 RB (1) [id number] 10/16/24 10:28 RB (1) #19 Left medial Lower leg - Primary Dressing Applied => Hysept ($) 10/16/24 10:25 Wound Care Center Nurse 3 #19 Left medial Lower leg -Primary Dressing Applied Hysept ($) -Other Dressing ABD -Primary Dressing Covered/Secured with Secured with Tape -Wound Comment(s) pt with wash with dakins at home then with apply dressing as prescribed #18 Right Medial Ankle -Primary Dressing Covered/Secured with Dry Gauze, Secured with Tape #10 Left Medial Ankle -Primary Dressing Covered/Secured with Dry Gauze, Secured with Tape Right -Stockings Yes Left -Stockings Yes Treatment Response Procedure Tolerated Well Pain Scale: 0-10 Numeric Is Patient Pain Free? Yes WC - Visit Discharge Discharge Condition Stable Ambulatory Status Ambulatory Transportation Private Auto Medication Reconcilliation completed & No provided to patient/care provider Clinical Summary of Care Provided Yes Additional Wound Wound debrided: Left medial leg Type of Debridement: Excisional debridement Anesthesia Used: 5% Lidocaine Gel Depth: Down to and including healthy tissue and in the subcutaneous layer Percentage of wound debrided: 100 Instrument Used: 5mm curette Tissue Removed: Slough and devitalized tissue Severity: Fat Layer Exposed Amount of bleeding with debridement: Mild Bleeding Controlled with: Pressure Patient tolerated procedure: Patient tolerated procedure well Additional Wound Wound debrided: Right medial lower extremity/ankle Type of Debridement: Excisional debridement Anesthesia Used: 5% Lidocaine Gel Depth: Down to and including healthy tissue and in the subcutaneous layer Percentage of wound debrided: 100 Instrument Used: 5mm curette Tissue Removed: Slough and devitalized tissue Severity: Fat Layer Exposed Amount of bleeding with debridement: Mild Bleeding Controlled with: Pressure Patient tolerated procedure: Patient tolerated procedure well Assessment/Plan Assessment/Plan (1) Ulcer of left lower extremity with fat layer exposed: CODE(S): L97.922 - Non-pressure chronic ulcer of unspecified part of left lower leg with fat layer exposed (2) PVD (peripheral vascular disease): CODE(S): I73.9 - Peripheral vascular disease, unspecified (3) Chronic venous insufficiency: CODE(S): I87.2 - Venous insufficiency (chronic) (peripheral) (4) Delayed wound healing: CODE(S): T14.8XXD - Other injury of unspecified body region, subsequent encounter (5) Ulcer of right lower extremity with fat layer exposed: CODE(S): L97.912 - Non-pressure chronic ulcer of unspecified part of right lower leg with fat layer exposed PLAN: Plan Debridement done as documented above, procedure was well-tolerated. Prior ulcer is stable however, presents with new areas of opening on the right and the left as detailed above. Right lower extremity with foul smell. No significant drainage. Increased bilateral lower extremity edema, he states that he is wearing his compression and his compression is new. Wears 20 to 30 mmHg. Feels well, denies any chills, fever or poor appetite. He had refused to follow-up with vascular surgery in the past stating that they said they had nothing else to do for him . Strongly advised to, he is now open to revisiting and would like to see Dr. Doty who he saw most recently. He states that he has been getting calls from another local vascular surgeon but does not want to see that group/practice due to prior experience. Cultures taken from right lower extremity. To all ulcers, 30 minutes Dakin soak daily. Apply Bactroban, Aquacel extra, Adaptic to surrounding skin and cover with KerraMax care. Continue use of compression stockings, leg elevation and exercise. Still has significant dry skin, strongly advised that he moisturize consistently, he voiced understanding. Increased protein intake, protein supplements, zinc and vitamin D. Has a visit with his primary care physician on the 07 of November and plan is to get labs at that time. Defer vascular studies to vascular. His questions were answered, and he was advised to call with any further questions or concerns. Follow-up in 1 week or sooner if needed. This note was generated with [employer] software. It may contain incorrect words, spelling, and punctuation that were not noted in checking the note before signing.
--- NOTE | 2024-10-20 11:45 | WC ---
PHOTO 10/16/24 RIGHT ANKLE
[2024-10-23 08:06] VITALS: BP 137/89; PULSE 94; RESP 18; TEMP 36; BMI 31.4
--- NOTE | 2024-10-23 09:08 | PCM.WC.PN ---
History of Present Illness Date of Service: 10/23/24 Chief Complaint: ulcers to the left lower leg History of Wound: This is a 54-year-old male presents to wound healing center with a long-standing history of chronic venous insufficiency, chronic venous hypertension, lower extremity edema, lower extremity pain, and chronic left lower extremity ulcer. The patient has previously undergone endovenous laser ablation of the left and right great saphenous vein, the small saphenous vein, the left accessory saphenous vein, and an incompetent left calf vpk teacher vein located 15 cm proximal to the left medial malleolus. He is currently wearing graduated compression stockings which are documented to be 20-30 mmHg compression and these are thigh high. He reports great compliance with use. He is also had previous arterial work-up with no intervention recommended by letter, his vascular surgeon. He denies taking nutritional supplementation. He saw dermatology and had a biopsy of the ulcer site. He also was previously treated by infectious disease for various contaminations and infections. He is not antibiotics at this time nor does he have any redness or odor coming from the wound. He denies fever, chill, nausea, vomiting, loss of appetite. 05/18/22: Mr. Jeronimo presents with a new right lower extremity ulceration. He states that this has been present for months and he has been trying to manage it at home without any significant improvement. Opened up months ago, no known precipitating factor. Has been applying wound dressings without any significant improvement. He reports increased drainage. Denies significant pain. No chills, fever or feeling of unwell. 10/16/24: Mr. Jeronimo presents with a new right lower extremity ulceration. He states that it started out as a very small area that was slipping and then in the last week, became rather extensive. He also reports a foul smell. Has noted increase lower extremity edema. He states that he has been wearing his compression (20 to 30 mmHg) consistently. No chills, fever or otherwise feeling of unwell. Also has a new area on his left lower medial leg. He states that he has been applying same 1 products to these new areas. Progress of Wound: No new concerns reported at this time. Stable ulcers. Has started antibiotics and he denies any concerning side effects. He is yet to schedule with vascular surgery. Objective Data Objective Data Vital Signs: Vital Signs Temp Pulse Resp BP Pulse Ox O2 Del Method 96.8 F L 94 18 137/89 H 99 Room Air 10/23/24 08:06 10/23/24 08:06 10/23/24 08:06 10/23/24 08:06 09/28/24 00:27 10/23/24 08:06 Oxygen Delivery Method Room Air Body Mass Index (BMI) 31.4 Lab / Micro Data Micro: Microbiology 10/16/24 10:00 Wound - Leg, Right Gram Stain - Final 10/16/24 10:00 Wound - Leg, Right Wound Culture - Final Serratia marcescens Corynebacterium amycolatum/xer Corynebacterium minutissimum Pseudopropionibacterium propio 10/16/24 10:00 Wound - Leg, Right Anaerobic Culture - Final Bacteroides ovatus Anaerobic cocci Parabacteroides distasonis Charges/Coding Procedures Integumentary 111xxx-113xx: 06870 Lakeisha subq tissue 20 sq cm/< Add On Codes: 89737 Lakeisha subq tissue add-on (x1. Additional square centimeter debrided, please refer to clinical note) Physical Exam Const alert, oriented x3 and no apparent distress General Appearance: cooperative and comfortable HEENT normocephalic Head and Scalp: normal to inspection, normocephalic and atraumatic Eyes EOMs intact bilaterally Neck full ROM and supple General: normal visual inspection Resp normal respiratory effort Effort and Inspection: able to speak in complete sentences Extremity normal to inspection General Extremity: edema Skin Wounds: wounds noted bed granulating well, margins well defined, malodorous and open Neuro oriented x3 and CN's II-XII intact bilaterally Psych mental status grossly normal Appearance: grossly normal Debridement Note Debridement Note Wound debrided: Right lower extremity/medial ankle Type of Debridement: Excisional debridement Anesthesia Used: 4% Lidocaine Solution Depth: Down to and including healthy tissue and in the subcutaneous layer Percentage of wound debrided: 100 Instrument Used: 5mm curette Tissue Removed: Slough and devitalized tissue Severity: Fat Layer Exposed Amount of bleeding with debridement: Mild Bleeding Controlled with: Pressure Patient tolerated procedure: Patient tolerated procedure well Post-Debridement Measurements and Additional Note: Post-Debridement Measurements/Treatment KIMBERLY - Nurse 1 - General Ulcer Assessment Start: 10/16/24 09:14 Freq: Status: Active Protocol: WC.LOWEXT Activity Type Activity Date Activity User E-sign Co-sign Detail Recorded Client Recorded Date Recorded By Document 10/16/24 09:16 OH [id number] 10/16/24 09:26 MT Document 10/23/24 08:06 KW [id number] 10/23/24 08:15 KW 10/16/24 10/23/24 09:16 08:06 - Today's Visit Information Type of service Follow-up Visit Follow-up Visit (Physician/SPANISH SPEAKING BABYSITTER (Physician/SPANISH SPEAKING BABYSITTER ) ) Arrival Mode Ambulatory Ambulatory Accompanied by self Patient Identification Verified (Name & Yes Yes ) Safety Precautions Fall Prevention Height and Weight Body Mass Index (BMI) 31.4 31.4 BMI Classification Obese Obese Vital Signs Temperature (97.8 F-99.1 F) 97 F L 96.8 F L Temperature Source Temporal Temporal Pulse Rate (60-100) 102 H 94 Pulse Location Monitor Monitor Respiratory Rate (12-18) 18 18 Respiratory rate source Observation Observation Oxygen Delivery Method Room Air Room Air Blood Pressure (90/60-120/80) 164/87 H 137/89 H Blood Pressure Mean (mm Hg) 112 105 Source Monitor Monitor Position Sitting Semi-Fowlers Blood Pressure Location Right Arm Left Arm History Since Last Visit- (Skip if this is Patient's initial visit) Have you changed medications since your No last visit? Any new allergies or adverse reactions No Had a fall/change in ADL's that may No increase risk of falls Signs or symptoms of abuse and/or No neglect since last visit Have you been in the hospital since your No last visit? Has dressing in place as prescribed Yes Yes Has compression in place as prescribed Yes N/A Has offloadiing in place as prescribed Yes N/A Experienced any changes in pain level or Yes No management Left Footwear Regular Shoe Regular Shoe Right Footwear Regular Shoe Regular Shoe Pain Scale: 0-10 Numeric Is Patient Pain Free? Yes Yes - Nurse 1 - General Ulcer Measurement Start: 10/16/24 09:14 Freq: Status: Active Protocol: Activity Type Activity Date Activity User E-sign Co-sign Detail Recorded Client Recorded Date Recorded By Document 10/16/24 09:16 OH [id number] 10/16/24 09:26 OH Document 10/23/24 08:06 KW [id number] 10/23/24 08:15 10/16/24 10/23/24 09:16 08:06 Wound Center Nurse 1 #19 Left medial Lower leg -Current Size (cm) - Length 0.1 -Current Size (cm) - Width 0.1 -Current Size (cm) - Depth 0.1 -Total Square Cm 0.01 -Exudate Amt None Present -Wound Margin Distinct, Outline Attached -Necrosis Amt Large (67-100%) -Necrotic Tissue Type Eschar -Texture (Ara-wound Skin Appearance) Assessed -Moisture (Ara-wound Skin Appearance) Assessed -Color (Ara-wound Skin Appearance) Assessed -Temperature (Ara-wound Skin No Abnormality Appearance) (Pt Warm) -Tenderness on Palpation (Ara-wound No Skin Appearance) -Ulcer Cleansing Soap and Water -Foul Odor after Cleansing No -Anesthetic Used 5% Lidocaine Gel #18 Right Medial Ankle -Current Size (cm) - Length 4.9 5 -Current Size (cm) - Width 3.3 2.5 -Current Size (cm) - Depth 0.1 0.1 -Total Square Cm 16.17 12.5 -Date of Last Picture (Recall this 10/16/24 field) -Photo Taken Yes -Tunneling No -Undermining/Tunneling No -Circular Undermining No -Classification - Thickness Partial Thickness -Exudate Amt Medium Medium -Exudate Type Serosanguineous Serosanguineous -Wound Margin Flat & Intact Distinct, Outline Attached -Granulation Amt Large (67-100%) Large (67-100%) -Granulation Quality Pale,[place],Red -Necrosis Amt Medium (34-66%) Small (1-33%) -Necrotic Tissue Type Adherent Slough Adherent Slough -Texture (Ara-wound Skin Appearance) Assessed Assessed -Moisture (Ara-wound Skin Appearance) Assessed Assessed,Dry/ Scaly -Color (Ara-wound Skin Appearance) Assessed Assessed -Temperature (Ara-wound Skin No Abnormality No Abnormality Appearance) (Pt Warm) (Pt Warm) -Tenderness on Palpation (Ara-wound No No Skin Appearance) -Ulcer Cleansing Soap and Water Soap and Water -Foul Odor after Cleansing No No -Anesthetic Used 5% Lidocaine 5% Lidocaine Gel Gel #10 Left Medial Ankle -Current Size (cm) - Length 3.7 3.6 -Current Size (cm) - Width 1.9 1.8 -Current Size (cm) - Depth 0.2 0.2 -Total Square Cm 7.03 6.48 -Photo Taken No -Tunneling No -Undermining/Tunneling No -Circular Undermining No -Exudate Amt Medium Medium -Exudate Type Serosanguineous Serosanguineous -Wound Margin Thickened & Distinct, Rolled Under Outline Attached -Granulation Amt Medium (34-66%) Large (67-100%) -Granulation Quality Pale,[place],Red -Necrosis Amt Small (1-33%) Small (1-33%) -Necrotic Tissue Type Adherent Slough Adherent Slough -Texture (Ara-wound Skin Appearance) Assessed Assessed -Moisture (Ara-wound Skin Appearance) Assessed Assessed,Dry/ Scaly -Color (Ara-wound Skin Appearance) Assessed Assessed -Temperature (Ara-wound Skin No Abnormality No Abnormality Appearance) (Pt Warm) (Pt Warm) -Tenderness on Palpation (Ara-wound No No Skin Appearance) -Ulcer Cleansing Soap and Water Soap and Water -Foul Odor after Cleansing No No -Anesthetic Used 5% Lidocaine 5% Lidocaine Gel Gel WC - Nurse 2 - General Ulcer CM Notes Start: 10/16/24 09:14 Freq: Status: Active Protocol: Activity Type Activity Date Activity User E-sign Co-sign Detail Recorded Client Recorded Date Recorded By Document 10/16/24 09:59 [id number] 10/16/24 10:11 Document 10/23/24 08:30 [id number] 10/23/24 08:46 10/16/24 10/23/24 09:59 08:30 Wound Center Nurse 2 #19 Left medial Lower leg -Time 10:00 08:44 -Correct Patient Yes Yes -Correct Side, Site, Position Yes Yes -Correct Procedure Yes Yes -Procedure Performed Yes Yes -Type of Procedure Debridement Debridement -Clinical Debridement Subcutaneous Subcutaneous -Tissue Removed Subcutaneous Subcutaneous -Post Debridement (cm) - Length 1.5 1.0 -Post Debridement (cm) - Width 0.5 0.4 -Post Debridement (cm) - Depth 0.1 0.1 -Total Square (Post) (cm) 0.75 0.40 -Area of Debridement (cm) - Length 1.5 1.0 -Area of Debridement (cm) - Width 0.5 0.4 -Total Square (Area) (cm) 0.75 0.40 -Tunneling No No -Undermining/Tunneling No No -Circular Undermining No No -Wound/Ulcer Outcome Not Healed Not Healed -Ulcer Cleansing Rinsed/ Rinsed/ Irrigated with Irrigated with Saline Saline -Foul Odor after Cleansing No No -Bioengineered Tissue No No -Bleeding Controlled with Pressure Pressure -Treatment Response Procedure Procedure Tolerated Well Tolerated Well -Debridement - Subq, 1st 20sq cm No No #18 Right Medial Ankle -Time 10:07 08:31 -Correct Patient Yes Yes -Correct Side, Site, Position Yes Yes -Correct Procedure Yes Yes -Procedure Performed Yes Yes -Type of Procedure Debridement Debridement -Clinical Debridement Subcutaneous Subcutaneous -Tissue Removed Subcutaneous Subcutaneous -Post Debridement (cm) - Length 5.0 4.9 -Post Debridement (cm) - Width 3.0 3.0 -Post Debridement (cm) - Depth 0.1 0.1 -Total Square (Post) (cm) 15.00 14.70 -Area of Debridement (cm) - Length 5.0 4.9 -Area of Debridement (cm) - Width 3.0 3.0 -Total Square (Area) (cm) 15.00 14.70 -Tunneling No No -Undermining/Tunneling No No -Circular Undermining No No -Wound/Ulcer Outcome Not Healed Not Healed -Ulcer Cleansing Rinsed/ Rinsed/ Irrigated with Irrigated with Saline Saline -Foul Odor after Cleansing No No -Bioengineered Tissue No No -Bleeding Controlled with Pressure Pressure -Treatment Response Procedure Procedure Tolerated Well Tolerated Well -Debridement - Subq, 1st 20sq cm No No #10 Left Medial Ankle -Time 09:59 08:45 -Correct Patient Yes Yes -Correct Side, Site, Position Yes Yes -Correct Procedure Yes Yes -Procedure Performed Yes Yes -Type of Procedure Debridement Debridement -Clinical Debridement Subcutaneous Subcutaneous -Tissue Removed Subcutaneous Subcutaneous -Post Debridement (cm) - Length 3.5 4.9 -Post Debridement (cm) - Width 1.8 3.0 -Post Debridement (cm) - Depth 0.3 0.1 -Total Square (Post) (cm) 6.30 14.70 -Area of Debridement (cm) - Length 3.5 -Area of Debridement (cm) - Width 1.8 -Total Square (Area) (cm) 6.30 -Tunneling No No -Undermining/Tunneling No No -Circular Undermining No No -Wound/Ulcer Outcome Not Healed Not Healed -Ulcer Cleansing Rinsed/ Rinsed/ Irrigated with Irrigated with Saline Saline -Foul Odor after Cleansing No No -Bioengineered Tissue No No -Bleeding Controlled with Pressure Pressure -Treatment Response Procedure Procedure Tolerated Well Tolerated Well -Debridement - Subq, 1st 20sq cm Yes Yes -Debridement, SubQ, ea addt'l 20sq cm 1 1 or part thereof Pain Scale: 0-10 Numeric Is Patient Pain Free? Yes Yes - Nurse 3 - General Ulcer D/C NN Start: 10/16/24 09:14 Freq: Status: Active Protocol: Activity Type Activity Date Activity User E-sign Co-sign Detail Recorded Client Recorded Date Recorded By Document 10/16/24 10:25 RB [id number] 10/16/24 10:27 RB Edit Result 10/16/24 10:25 RB (1) [id number] 10/16/24 10:28 RB Document 10/23/24 08:51 KW [id number] 10/23/24 08:52 KW (1) #19 Left medial Lower leg - Primary Dressing Applied => Hysept ($) 10/16/24 10/23/24 10:25 08:51 Wound Care Center Nurse 3 #19 Left medial Lower leg -Primary Dressing Applied Hysept ($) -Other Dressing ABD -Primary Dressing Covered/Secured with Secured with Dry Gauze & Tape Roll Gauze, Secured with Tape -Wound Comment(s) pt with wash with dakins at home then with apply dressing as prescribed #18 Right Medial Ankle -Primary Dressing Covered/Secured with Dry Gauze, Dry Gauze Secured with Tape #10 Left Medial Ankle -Primary Dressing Covered/Secured with Dry Gauze, Dry Gauze, Secured with Secured with Tape Tape Right -Stockings Yes Left -Stockings Yes Treatment Response Procedure Tolerated Well Pain Scale: 0-10 Numeric Is Patient Pain Free? Yes Yes - Visit Discharge Discharge Condition Stable Stable Ambulatory Status Ambulatory Ambulatory Transportation Private Auto Private Auto Medication Reconcilliation completed & No No provided to patient/care provider Clinical Summary of Care Provided Yes Yes Notes: pt is to wash with dakins then apply bactroban, aquacel extra and adaptic. Cover with keramax and kerlex. Pt wears own compression. Additional Wound Wound debrided: Left medial ankle Type of Debridement: Excisional debridement Anesthesia Used: 4% Lidocaine Solution Depth: Down to and including healthy tissue and in the subcutaneous layer Percentage of wound debrided: 100 Instrument Used: 5mm curette Tissue Removed: Slough and devitalized tissue Severity: Fat Layer Exposed Bleeding Controlled with: Pressure Patient tolerated procedure: Patient tolerated procedure well Additional Wound Wound debrided: Left lower extremity Type of Debridement: Excisional debridement Anesthesia Used: 4% Lidocaine Solution Depth: Down to and including healthy tissue and in the subcutaneous layer Percentage of wound debrided: 100 Instrument Used: 3mm curette and 5mm curette Tissue Removed: Slough and devitalized tissue Severity: Fat Layer Exposed Bleeding Controlled with: Pressure Patient tolerated procedure: Patient tolerated procedure well Assessment/Plan Assessment/Plan (1) Ulcer of left lower extremity with fat layer exposed: CODE(S): L97.922 - Non-pressure chronic ulcer of unspecified part of left lower leg with fat layer exposed (2) PVD (peripheral vascular disease): CODE(S): I73.9 - Peripheral vascular disease, unspecified (3) Chronic venous insufficiency: CODE(S): I87.2 - Venous insufficiency (chronic) (peripheral) (4) Delayed wound healing: CODE(S): T14.8XXD - Other injury of unspecified body region, subsequent encounter (5) Ulcer of right lower extremity with fat layer exposed: CODE(S): L97.912 - Non-pressure chronic ulcer of unspecified part of right lower leg with fat layer exposed PLAN: Plan Debridement done as documented above, procedure was well-tolerated. No new concerns reported at this time. Stable ulcers. Still some malodor from right lower extremity however, improved compared to prior. Has had a few days of antibiotics. Lower extremity edema also improved, he states that he has been elevating his lower extremity much more. Continue 30 minutes Dakin soak daily. Apply Bactroban, Aquacel extra, Adaptic to surrounding skin and cover with KerraMax care. Continue use of compression stockings, leg elevation and exercise. Increased protein intake, protein supplements, zinc and vitamin D. Has a visit with his primary care physician on the 07 of November and plan is to get labs at that time. Defer vascular studies to vascular, again, he was strongly advised to schedule this appointment which he states that he will. Information for this practice given. His questions were answered, and he was advised to call with any further questions or concerns. Follow-up in 2 weeks or sooner if needed. Strongly advised that he call if he notes any worsening, he voiced understanding. This note was generated with [employer] software. It may contain incorrect words, spelling, and punctuation that were not noted in checking the note before signing.
== END 2024-10-28 23:59 | disposition home or self-care (01) ==
LOC: WC 08:00
PROVIDERS: PCP Family Medicine; Referring Provider Family Medicine; Visit Provider Internal Medicine
DX: I87.313 Chronic venous hypertension (idiopathic) with ulcer of bilateral lower extremity (principal); L97.322 Non-pressure chronic ulcer of left ankle with fat layer exposed; L97.822 Non-pressure chronic ulcer of other part of left lower leg with fat layer exposed; L97.312 Non-pressure chronic ulcer of right ankle with fat layer exposed; I73.9 Peripheral vascular disease, unspecified; I87.2 Venous insufficiency (chronic) (peripheral); R60.0 Localized edema; Z79.82 Long term (current) use of aspirin; Z79.899 Other long term (current) drug therapy
CPT/HCPCS: 11042; 11045; 87070; 87075; 87077; 87186; 87205

== ENCOUNTER 2024-11-20 08:00 | Outpatient (RCR) | payer OTHER, SELFPAY ==
[2024-10-29 00:16] VITALS: BP 148/81; PULSE 86; RESP 18; TEMP 36.6; O2SAT 99; BMI 31.4
[2024-11-06 08:08] VITALS: BP 155/88; PULSE 83; RESP 18; TEMP 36.1; BMI 31.4
--- NOTE | 2024-11-06 08:50 | PCM.WC.PN ---
History of Present Illness Date of Service: 11/06/24 Chief Complaint: ulcers to the left lower leg History of Wound: This is a 54-year-old male presents to wound healing center with a long-standing history of chronic venous insufficiency, chronic venous hypertension, lower extremity edema, lower extremity pain, and chronic left lower extremity ulcer. 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 He is currently wearing graduated compression stockings which are documented to be 20-30 mmHg compression and these are thigh high. He reports great compliance with use. He is also had previous arterial work-up with no intervention recommended by letter, his vascular surgeon. He denies taking nutritional supplementation. He saw dermatology and had a biopsy of the ulcer site. He also was previously treated by infectious disease for various contaminations and infections. He is not antibiotics at this time nor does he have any redness or odor coming from the wound. He denies fever, chill, nausea, vomiting, loss of appetite. 05/18/22: Mr. Jeronimo presents with a new right lower extremity ulceration. He states that this has been present for months and he has been trying to manage it at home without any significant improvement. Opened up months ago, no known precipitating factor. Has been applying wound dressings without any significant improvement. He reports increased drainage. Denies significant pain. No chills, fever or feeling of unwell. 10/16/24: Mr. Jeronimo presents with a new right lower extremity ulceration. He states that it started out as a very small area that was slipping and then in the last week, became rather extensive. He also reports a foul smell. Has noted increase lower extremity edema. He states that he has been wearing his compression (20 to 30 mmHg) consistently. No chills, fever or otherwise feeling of unwell. Also has a new area on his left lower medial leg. He states that he has been applying same 1 products to these new areas. Progress of Wound: Ulcers with some improvement. He denies any significant drainage. He reports right heel area pain, no new opening. Denies significant pressure to the area. Has an appointment scheduled with vascular for the 04 of December. Objective Data Objective Data Vital Signs: Vital Signs Temp Pulse Resp BP Pulse Ox O2 Del Method 96.9 F L 83 18 155/88 H 99 Room Air 11/06/24 08:08 11/06/24 08:08 11/06/24 08:08 11/06/24 08:08 10/29/24 00:16 11/06/24 08:08 Oxygen Delivery Method Room Air Body Mass Index (BMI) 31.4 Charges/Coding Procedures Integumentary 111xxx-113xx: [id number] Lakeisha subq tissue 20 sq cm/< Physical Exam Const alert, oriented x3 and no apparent distress General Appearance: cooperative and comfortable HEENT normocephalic Head and Scalp: normal to inspection, normocephalic and atraumatic Eyes EOMs intact bilaterally Neck full ROM and supple General: normal visual inspection Resp normal respiratory effort Effort and Inspection: able to speak in complete sentences Extremity normal to inspection General Extremity: edema Skin Wounds: wounds noted bed granulating well, margins well defined, no odor and open Neuro oriented x3, CN's II-XII intact bilaterally, moves all extremities and no focal motor deficits Psych mental status grossly normal, thought process normal, cooperative and affect normal Debridement Note Debridement Note Wound debrided: Right medial foot/ankle Type of Debridement: Excisional debridement Anesthesia Used: 5% Lidocaine Gel Depth: Down to and including healthy tissue and in the subcutaneous layer Percentage of wound debrided: 100 Instrument Used: #15 blade and Forceps Tissue Removed: Slough and devitalized tissue Severity: Fat Layer Exposed Amount of bleeding with debridement: Mild Bleeding Controlled with: Pressure Patient tolerated procedure: Patient tolerated procedure well Post-Debridement Measurements and Additional Note: Post-Debridement Measurements/Treatment - Nurse 1 - General Ulcer Assessment Start: 11/06/24 08:07 Freq: Status: Active Protocol: [email or web address].LOWEXT Activity Type Activity Date Activity User E-sign Co-sign Detail Recorded Client Recorded Date Recorded By Document 11/06/24 08:08 [email or web address] [id number] 11/06/24 08:22 [email or web address] 11/06/24 08:08 - Today's Visit Information Type of service Follow-up Visit (Physician/BUFFET MANAGER ) Arrival Mode Ambulatory Patient Identification Verified (Name & Yes ) Height and Weight Body Mass Index (BMI) 31.4 BMI Classification Obese Vital Signs Temperature (97.8 F-99.1 F) 96.9 F L Temperature Source Temporal Pulse Rate (60-100) 83 Pulse Location Monitor Respiratory Rate (12-18) 18 Respiratory rate source Observation Oxygen Delivery Method Room Air Blood Pressure (90/60-120/80) 155/88 H Blood Pressure Mean (mm Hg) 110 Source Monitor Position Sitting Blood Pressure Location Left Arm History Since Last Visit- (Skip if this is Patient's initial visit) Have you changed medications since your No last visit? Any new allergies or adverse reactions No Had a fall/change in ADL's that may No increase risk of falls Signs or symptoms of abuse and/or No neglect since last visit Have you been in the hospital since your No last visit? Has dressing in place as prescribed Yes Has compression in place as prescribed N/A Has offloadiing in place as prescribed N/A Experienced any changes in pain level or No management Left Footwear Regular Shoe Right Footwear Regular Shoe Pain Scale: 0-10 Numeric Is Patient Pain Free? Yes WC - Nurse 1 - General Ulcer Measurement Start: 11/06/24 08:07 Freq: Status: Active Protocol: Activity Type Activity Date Activity User E-sign Co-sign Detail Recorded Client Recorded Date Recorded By Document 11/06/24 08:08 [email or web address] [id number] 11/06/24 08:22 KW 11/06/24 08:08 Wound Center Nurse 1 #19 Left medial Lower leg -Texture (Ara-wound Skin Appearance) Assessed -Moisture (Ara-wound Skin Appearance) Assessed -Color (Ara-wound Skin Appearance) Assessed -Temperature (Ara-wound Skin No Abnormality Appearance) (Pt Warm) -Tenderness on Palpation (Ara-wound No Skin Appearance) -Ulcer Cleansing Soap and Water -Foul Odor after Cleansing No -Anesthetic Used 5% Lidocaine Gel #18 Right Medial Ankle -Current Size (cm) - Length 4 -Current Size (cm) - Width 2.5 -Current Size (cm) - Depth 0.2 -Total Square Cm 10.0 -Exudate Amt Small -Exudate Type Serosanguineous -Wound Margin Distinct, Outline Attached -Granulation Amt Large (67-100%) -Granulation Quality [place] -Necrosis Amt Small (1-33%) -Necrotic Tissue Type Adherent Slough -Texture (Ara-wound Skin Appearance) Assessed -Moisture (Ara-wound Skin Appearance) Assessed,Dry/ Scaly -Color (Ara-wound Skin Appearance) Assessed -Temperature (Ara-wound Skin No Abnormality Appearance) (Pt Warm) -Tenderness on Palpation (Ara-wound No Skin Appearance) -Ulcer Cleansing Soap and Water -Foul Odor after Cleansing No -Anesthetic Used 5% Lidocaine Gel #10 Left Medial Ankle -Current Size (cm) - Length 3.5 -Current Size (cm) - Width 1.5 -Current Size (cm) - Depth 0.3 -Total Square Cm 5.25 -Exudate Amt Small -Exudate Type Serosanguineous -Wound Margin Distinct, Outline Attached -Granulation Amt Large (67-100%) -Granulation Quality Great [place] -Necrosis Amt Small (1-33%) -Necrotic Tissue Type Adherent Slough -Texture (Ara-wound Skin Appearance) Assessed -Moisture (Ara-wound Skin Appearance) Assessed,Dry/ Scaly -Color (Ara-wound Skin Appearance) Assessed -Temperature (Ara-wound Skin No Abnormality Appearance) (Pt Warm) -Tenderness on Palpation (Ara-wound No Skin Appearance) -Ulcer Cleansing Soap and Water -Anesthetic Used 5% Lidocaine Gel WC - Nurse 2 - General Ulcer CM Notes Start: 11/06/24 08:07 Freq: Status: Active Protocol: Activity Type Activity Date Activity User E-sign Co-sign Detail Recorded Client Recorded Date Recorded By Document 11/06/24 08:24 [id number] 11/06/24 08:43 11/06/24 08:24 Wound Center Nurse 2 #19 Left medial Lower leg -Time 08:24 -Correct Patient Yes -Correct Side, Site, Position Yes -Correct Procedure No -Procedure Performed No -Post Debridement (cm) - Length 0.1 -Post Debridement (cm) - Width 0.1 -Post Debridement (cm) - Depth 0.1 -Total Square (Post) (cm) 0.01 -Tunneling No -Undermining/Tunneling No -Circular Undermining No -Wound/Ulcer Outcome Not Healed -Foul Odor after Cleansing No -Bioengineered Tissue No -Bleeding Controlled with NA #18 Right Medial Ankle -Time 08:24 -Correct Patient Yes -Correct Side, Site, Position Yes -Correct Procedure Yes -Procedure Performed Yes -Type of Procedure Debridement -Clinical Debridement Subcutaneous -Tissue Removed Subcutaneous -Post Debridement (cm) - Length 4.0 -Post Debridement (cm) - Width 2.4 -Post Debridement (cm) - Depth 0.1 -Total Square (Post) (cm) 9.60 -Area of Debridement (cm) - Length 4.0 -Area of Debridement (cm) - Width 2.4 -Total Square (Area) (cm) 9.60 -Tunneling No -Undermining/Tunneling No -Circular Undermining No -Wound/Ulcer Outcome Not Healed -Ulcer Cleansing Not Cleansed -Foul Odor after Cleansing No -Bioengineered Tissue No -Bleeding Controlled with Pressure -Treatment Response Procedure Tolerated Well -Debridement - Subq, 1st 20sq cm Yes #10 Left Medial Ankle -Time 08:24 -Correct Patient Yes -Correct Side, Site, Position Yes -Correct Procedure Yes -Procedure Performed Yes -Type of Procedure Debridement -Clinical Debridement Subcutaneous -Tissue Removed Subcutaneous -Post Debridement (cm) - Length 3.1 -Post Debridement (cm) - Width 1.4 -Post Debridement (cm) - Depth 0.3 -Total Square (Post) (cm) 4.34 -Area of Debridement (cm) - Length 3.1 -Area of Debridement (cm) - Width 1.4 -Total Square (Area) (cm) 4.34 -Tunneling No -Undermining/Tunneling No -Circular Undermining No -Wound/Ulcer Outcome Not Healed -Ulcer Cleansing Rinsed/ Irrigated with Saline -Foul Odor after Cleansing No -Bioengineered Tissue No -Bleeding Controlled with Pressure -Treatment Response Procedure Tolerated Well -Debridement - Subq, 1st 20sq cm No Pain Scale: 0-10 Numeric Is Patient Pain Free? Yes WC - Nurse 3 - General Ulcer D/C NN Start: 11/06/24 08:07 Freq: Status: Active Protocol: Activity Type Activity Date Activity User E-sign Co-sign Detail Recorded Client Recorded Date Recorded By Document 11/06/24 08:48 [id number] 11/06/24 08:49 GM 11/06/24 08:48 Wound Care Center Nurse 3 #19 Left medial Lower leg -Ulcer Cleansing Not Cleansed -Foul Odor after Cleansing No -Primary Dressing Covered/Secured with Secured with Tape,Other -Other Covering abd #18 Right Medial Ankle -Ulcer Cleansing Not Cleansed -Foul Odor after Cleansing No -Primary Dressing Covered/Secured with Secured with Tape,Other -Other Covering abd #10 Left Medial Ankle -Ulcer Cleansing Not Cleansed -Foul Odor after Cleansing No -Primary Dressing Covered/Secured with Secured with Tape,Other -Other Covering abd Pain Scale: 0-10 Numeric Is Patient Pain Free? Yes WC - Visit Discharge Discharge Condition Stable Ambulatory Status Ambulatory Transportation Private Auto Additional Wound Wound debrided: Left medial ankle/foot Type of Debridement: Excisional debridement Anesthesia Used: 5% Lidocaine Gel Depth: Down to and including healthy tissue and in the subcutaneous layer Percentage of wound debrided: 100 Instrument Used: 5mm curette Tissue Removed: Slough and devitalized tissue Severity: Fat Layer Exposed Amount of bleeding with debridement: Mild Bleeding Controlled with: Pressure Patient tolerated procedure: Patient tolerated procedure well Assessment/Plan Assessment/Plan (1) Ulcer of left lower extremity with fat layer exposed: CODE(S): L97.922 - Non-pressure chronic ulcer of unspecified part of left lower leg with fat layer exposed (2) PVD (peripheral vascular disease): CODE(S): I73.9 - Peripheral vascular disease, unspecified (3) Chronic venous insufficiency: CODE(S): I87.2 - Venous insufficiency (chronic) (peripheral) (4) Delayed wound healing: CODE(S): T14.8XXD - Other injury of unspecified body region, subsequent encounter (5) Ulcer of right lower extremity with fat layer exposed: CODE(S): L97.912 - Non-pressure chronic ulcer of unspecified part of right lower leg with fat layer exposed PLAN: Plan Debridement done as documented above, procedure was well-tolerated. As above, he reports right heel pain. There is no ulcer or concern for deep tissue injury noted on exam. He denies any significant drainage. Previous malodor has resolved, has completed antibiotics. Ulcers also with some improvement since his last visit. Now has an appointment scheduled with vascular for the 04 of December. Plan was to defer workup/imaging to vascular however, due to significant time prior to visit, will start with venous and arterial studies. Continue 30 minutes Dakin soak daily. Apply Bactroban, Aquacel extra to ulcers, Adaptic to surrounding skin and cover with KerraMax care. Continue use of compression stockings, leg elevation and exercise. Increased protein intake, protein supplements, zinc and vitamin D. Has a visit with his primary care physician tomorrow and plan is to get labs. Will review when available. His questions were answered, and he was advised to call with any further questions or concerns. Follow-up in 2 weeks or sooner if needed. This note was generated with [employer] software. It may contain incorrect words, spelling, and punctuation that were not noted in checking the note before signing.
[2024-11-20 08:02] VITALS: BP 147/90; PULSE 82; RESP 18; TEMP 36.1; BMI 31.4
--- NOTE | 2024-11-20 09:21 | PN.PCM_ITS ---
History of Present Illness Date of Service: 11/20/24 Chief Complaint: ulcers to the left lower leg History of Wound: This is a 54-year-old male presents to wound healing center with a long-standing history of chronic venous insufficiency, chronic venous hypertension, lower extremity edema, lower extremity pain, and chronic left lower extremity ulcer. The patient has previously undergone endovenous laser ablation of the left and right great saphenous vein, the small saphenous vein, the left accessory saphenous vein, and an incompetent left calf director of online education vein located 15 cm proximal to the left medial malleolus. He is currently wearing graduated compression stockings which are documented to be 20-30 mmHg compression and these are thigh high. He reports great compliance with use. He is also had previous arterial work-up with no intervention recommended by letter, his vascular surgeon. He denies taking nutritional supplementation. He saw dermatology and had a biopsy of the ulcer site. He also was previously treated by infectious disease for various contaminations and infections. He is not antibiotics at this time nor does he have any redness or odor coming from the wound. He denies fever, chill, nausea, vomiting, loss of appetite. 05/18/22: Mr. Jeronimo presents with a new right lower extremity ulceration. He states that this has been present for months and he has been trying to manage it at home without any significant improvement. Opened up months ago, no known precipitating factor. Has been applying wound dressings without any significant improvement. He reports increased drainage. Denies significant pain. No chills, fever or feeling of unwell. 10/16/24: Mr. Jeronimo presents with a new right lower extremity ulceration. He states that it started out as a very small area that was slipping and then in the last week, became rather extensive. He also reports a foul smell. Has noted increase lower extremity edema. He states that he has been wearing his compression (20 to 30 mmHg) consistently. No chills, fever or otherwise feeling of unwell. Also has a new area on his left lower medial leg. He states that he has been applying same 1 products to these new areas. Progress of Wound: Right lower extremity with some improvement however he reports pain and foul smell. No foul smell noted at the time of his visit. He denies any significant drainage. Wearing compression appropriately. Objective Data Objective Data Vital Signs: Vital Signs Temp Pulse Resp BP Pulse Ox O2 Del Method 96.9 F L 82 18 147/90 H 99 Room Air 11/20/24 08:02 11/20/24 08:02 11/20/24 08:02 11/20/24 08:02 10/29/24 00:16 11/20/24 08:02 Oxygen Delivery Method Room Air Body Mass Index (BMI) 31.4 Charges/Coding Procedures Integumentary 111xxx-113xx: 63051 Lakeisha subq tissue 20 sq cm/< Physical Exam Const alert, oriented x3 and no apparent distress General Appearance: cooperative and comfortable HEENT normocephalic Head and Scalp: normal to inspection, normocephalic and atraumatic Eyes EOMs intact bilaterally Neck full ROM and supple General: normal visual inspection Resp normal respiratory effort Effort and Inspection: able to speak in complete sentences Extremity normal to inspection General Extremity: edema Skin Wounds: wounds noted bed granulating well, margins well defined, no odor and open Neuro oriented x3, CN's II-XII intact bilaterally, moves all extremities and no focal motor deficits Psych mental status grossly normal, thought process normal, cooperative and affect normal Debridement Note Debridement Note Wound debrided: Right medial ankle Type of Debridement: Excisional debridement Anesthesia Used: 5% Lidocaine Gel Depth: Down to and including healthy tissue and in the subcutaneous layer Percentage of wound debrided: 100 Instrument Used: 5mm curette Tissue Removed: Slough and devitalized tissue Severity: Fat Layer Exposed Amount of bleeding with debridement: Mild Bleeding Controlled with: Pressure Patient tolerated procedure: Patient tolerated procedure well Post-Debridement Measurements and Additional Note: Post-Debridement Measurements/Treatment - Nurse 1 - General Ulcer Assessment Start: 11/06/24 08:07 Freq: Status: Active Protocol: KIMBERLY.MEHDI Activity Type Activity Date Activity User E-sign Co-sign Detail Recorded Client Recorded Date Recorded By Document 11/06/24 08:08 [email or web address] [id number] 11/06/24 08:22 KW Document 11/20/24 08:02 KW [id number] 11/20/24 08:13 KW 11/06/24 11/20/24 08:08 08:02 - Today's Visit Information Type of service Follow-up Visit Follow-up Visit (Physician/PHYSICIAN ASSISTANT PSYCHIATRY (Physician/PHYSICIAN ASSISTANT PSYCHIATRY ) ) Arrival Mode Ambulatory Ambulatory Patient Identification Verified (Name & Yes Yes ) Height and Weight Body Mass Index (BMI) 31.4 31.4 BMI Classification Obese Obese Vital Signs Temperature (97.8 F-99.1 F) 96.9 F L 96.9 F L Temperature Source Temporal Temporal Pulse Rate (60-100) 83 82 Pulse Location Monitor Monitor Respiratory Rate (12-18) 18 18 Respiratory rate source Observation Observation Oxygen Delivery Method Room Air Room Air Blood Pressure (90/60-120/80) 155/88 H 147/90 H Blood Pressure Mean (mm Hg) 110 109 Source Monitor Monitor Position Sitting Sitting Blood Pressure Location Left Arm Right Arm History Since Last Visit- (Skip if this is Patient's initial visit) Have you changed medications since your No No last visit? Any new allergies or adverse reactions No No Had a fall/change in ADL's that may No No increase risk of falls Signs or symptoms of abuse and/or No No neglect since last visit Have you been in the hospital since your No No last visit? Has dressing in place as prescribed Yes Yes Has compression in place as prescribed N/A N/A Has offloadiing in place as prescribed N/A N/A Experienced any changes in pain level or No No management Left Footwear Regular Shoe Regular Shoe Right Footwear Regular Shoe Regular Shoe Pain Scale: 0-10 Numeric Is Patient Pain Free? Yes Yes WC - Nurse 1 - General Ulcer Measurement Start: 11/06/24 08:07 Freq: Status: Active Protocol: Activity Type Activity Date Activity User E-sign Co-sign Detail Recorded Client Recorded Date Recorded By Document 11/06/24 08:08 KW [id number] 11/06/24 08:22 KW Document 11/20/24 08:02 KW [id number] 11/20/24 08:13 KW 11/06/24 11/20/24 08:08 08:02 Wound Center Nurse 1 #19 Left medial Lower leg -Texture (Ara-wound Skin Appearance) Assessed -Moisture (Ara-wound Skin Appearance) Assessed -Color (Ara-wound Skin Appearance) Assessed -Temperature (Ara-wound Skin No Abnormality Appearance) (Pt Warm) -Tenderness on Palpation (Ara-wound No Skin Appearance) -Ulcer Cleansing Soap and Water -Foul Odor after Cleansing No -Anesthetic Used 5% Lidocaine Gel #18 Right Medial Ankle -Current Size (cm) - Length 4 3.4 -Current Size (cm) - Width 2.5 1 -Current Size (cm) - Depth 0.2 0.1 -Total Square Cm 10.0 3.4 -Date of Last Picture (Recall this 11/20/24 field) -Exudate Amt Small Small -Exudate Type Serosanguineous Serosanguineous -Wound Margin Distinct, Distinct, Outline Outline Attached Attached -Granulation Amt Large (67-100%) Large (67-100%) -Granulation Quality [place] -Necrosis Amt Small (1-33%) Large (67-100%) -Necrotic Tissue Type Adherent Slough Adherent Slough -Texture (Ara-wound Skin Appearance) Assessed Assessed -Moisture (Ara-wound Skin Appearance) Assessed,Dry/ Assessed,Dry/ Scaly Scaly -Color (Ara-wound Skin Appearance) Assessed Assessed -Temperature (Ara-wound Skin No Abnormality No Abnormality Appearance) (Pt Warm) (Pt Warm) -Tenderness on Palpation (Ara-wound No No Skin Appearance) -Ulcer Cleansing Soap and Water Soap and Water -Foul Odor after Cleansing No No -Anesthetic Used 5% Lidocaine 5% Lidocaine Gel Gel #10 Left Medial Ankle -Current Size (cm) - Length 3.5 3.2 -Current Size (cm) - Width 1.5 1.3 -Current Size (cm) - Depth 0.3 0.1 -Total Square Cm 5.25 4.16 -Date of Last Picture (Recall this 11/20/24 field) -Exudate Amt Small Small -Exudate Type Serosanguineous Serosanguineous -Wound Margin Distinct, Distinct, Outline Outline Attached Attached -Granulation Amt Large (67-100%) Large (67-100%) -Granulation Quality [place] -Necrosis Amt Small (1-33%) Medium (34-66%) -Necrotic Tissue Type Adherent Slough Adherent Slough -Texture (Ara-wound Skin Appearance) Assessed Assessed -Moisture (Ara-wound Skin Appearance) Assessed,Dry/ Assessed,Dry/ Scaly Scaly -Color (Ara-wound Skin Appearance) Assessed Assessed -Temperature (Ara-wound Skin No Abnormality No Abnormality Appearance) (Pt Warm) (Pt Warm) -Tenderness on Palpation (Ara-wound No No Skin Appearance) -Ulcer Cleansing Soap and Water Soap and Water -Foul Odor after Cleansing No -Anesthetic Used 5% Lidocaine 5% Lidocaine Gel Gel WC - Nurse 2 - General Ulcer CM Notes Start: 11/06/24 08:07 Freq: Status: Active Protocol: Activity Type Activity Date Activity User E-sign Co-sign Detail Recorded Client Recorded Date Recorded By Document 11/06/24 08:24 [id number] 11/06/24 08:43 Document 11/20/24 08:26 [id number] 11/20/24 08:38 11/06/24 11/20/24 08:24 08:26 Wound Center Nurse 2 #19 Left medial Lower leg -Time 08:24 08:29 -Correct Patient Yes Yes -Correct Side, Site, Position Yes Yes -Correct Procedure No -Procedure Performed No -Post Debridement (cm) - Length 0.1 -Post Debridement (cm) - Width 0.1 -Post Debridement (cm) - Depth 0.1 -Total Square (Post) (cm) 0.01 -Tunneling No No -Undermining/Tunneling No No -Circular Undermining No No -Wound/Ulcer Outcome Not Healed Healed- Epithelialized -Foul Odor after Cleansing No No -Bioengineered Tissue No No -Bleeding Controlled with NA -Debridement - Subq, 1st 20sq cm No #18 Right Medial Ankle -Time 08:24 08:29 -Correct Patient Yes Yes -Correct Side, Site, Position Yes Yes -Correct Procedure Yes Yes -Procedure Performed Yes Yes -Type of Procedure Debridement Debridement -Clinical Debridement Subcutaneous Subcutaneous -Tissue Removed Subcutaneous Subcutaneous -Post Debridement (cm) - Length 4.0 2.2 -Post Debridement (cm) - Width 2.4 0.4 -Post Debridement (cm) - Depth 0.1 0.1 -Total Square (Post) (cm) 9.60 0.88 -Area of Debridement (cm) - Length 4.0 2.2 -Area of Debridement (cm) - Width 2.4 0.4 -Total Square (Area) (cm) 9.60 0.88 -Tunneling No No -Undermining/Tunneling No No -Circular Undermining No No -Wound/Ulcer Outcome Not Healed Not Healed -Ulcer Cleansing Not Cleansed Rinsed/ Irrigated with Saline -Foul Odor after Cleansing No No -Bioengineered Tissue No No -Bleeding Controlled with Pressure Pressure -Treatment Response Procedure Procedure Tolerated Well Tolerated Well -Debridement - Subq, 1st 20sq cm Yes No #10 Left Medial Ankle -Time 08:24 08:30 -Correct Patient Yes Yes -Correct Side, Site, Position Yes Yes -Correct Procedure Yes Yes -Procedure Performed Yes Yes -Type of Procedure Debridement Debridement -Clinical Debridement Subcutaneous Subcutaneous -Tissue Removed Subcutaneous Subcutaneous -Post Debridement (cm) - Length 3.1 3.4 -Post Debridement (cm) - Width 1.4 1.2 -Post Debridement (cm) - Depth 0.3 0.3 -Total Square (Post) (cm) 4.34 4.08 -Area of Debridement (cm) - Length 3.1 3.4 -Area of Debridement (cm) - Width 1.4 1.2 -Total Square (Area) (cm) 4.34 4.08 -Tunneling No No -Undermining/Tunneling No No -Circular Undermining No No -Wound/Ulcer Outcome Not Healed Not Healed -Ulcer Cleansing Rinsed/ Rinsed/ Irrigated with Irrigated with Saline Saline -Foul Odor after Cleansing No No -Bioengineered Tissue No No -Bleeding Controlled with Pressure Pressure -Treatment Response Procedure Procedure Tolerated Well Tolerated Well -Debridement - Subq, 1st 20sq cm No Yes Pain Scale: 0-10 Numeric Is Patient Pain Free? Yes Yes - Nurse 3 - General Ulcer D/C NN Start: 11/06/24 08:07 Freq: Status: Active Protocol: Activity Type Activity Date Activity User E-sign Co-sign Detail Recorded Client Recorded Date Recorded By Document 11/06/24 08:48 [id number] 11/06/24 08:49 Document 11/20/24 08:51 [id number] 11/20/24 08:52 11/06/24 11/20/24 08:48 08:51 Wound Care Center Nurse 3 #19 Left medial Lower leg -Ulcer Cleansing Not Cleansed -Foul Odor after Cleansing No -Primary Dressing Covered/Secured with Secured with Dry Gauze Tape,Other -Other Covering abd #18 Right Medial Ankle -Ulcer Cleansing Not Cleansed -Foul Odor after Cleansing No -Primary Dressing Covered/Secured with Secured with Dry Gauze, Tape,Other Secured with Tape -Other Covering abd #10 Left Medial Ankle -Ulcer Cleansing Not Cleansed -Foul Odor after Cleansing No -Primary Dressing Covered/Secured with Secured with Dry Gauze, Tape,Other Secured with Tape -Other Covering abd Pain Scale: 0-10 Numeric Is Patient Pain Free? Yes Yes WC - Visit Discharge Discharge Condition Stable Stable Ambulatory Status Ambulatory Ambulatory Transportation Private Auto Private Auto Medication Reconcilliation completed & No provided to patient/care provider Clinical Summary of Care Provided Yes Additional Wound Wound debrided: Left medial ankle Type of Debridement: Excisional debridement Anesthesia Used: 5% Lidocaine Gel Depth: Down to and including healthy tissue and in the subcutaneous layer Percentage of wound debrided: 100 Instrument Used: 5mm curette Tissue Removed: Slough and devitalized tissue Severity: Fat Layer Exposed Amount of bleeding with debridement: Mild Bleeding Controlled with: Pressure Patient tolerated procedure: Patient tolerated procedure well Assessment/Plan Assessment/Plan (1) Ulcer of left lower extremity with fat layer exposed: CODE(S): L97.922 - Non-pressure chronic ulcer of unspecified part of left lower leg with fat layer exposed (2) PVD (peripheral vascular disease): CODE(S): I73.9 - Peripheral vascular disease, unspecified (3) Chronic venous insufficiency: CODE(S): I87.2 - Venous insufficiency (chronic) (peripheral) (4) Delayed wound healing: CODE(S): T14.8XXD - Other injury of unspecified body region, subsequent encounter (5) Ulcer of right lower extremity with fat layer exposed: CODE(S): L97.912 - Non-pressure chronic ulcer of unspecified part of right lower leg with fat layer exposed PLAN: Plan Debridement done as documented above, procedure was well-tolerated. Good improvement noted on the right however, as above, he reports a foul order when he takes off his shoes. He also states that he has noted some more pain on the right as well. Cultures taken, will review. Has an appointment with vascular shortly. Continue 30 minutes Dakin soak daily. Apply Bactroban, Aquacel extra to ulcers, Adaptic to surrounding skin and cover with KerraMax care. Continue use of compression stockings, leg elevation and exercise. Increased protein intake, protein supplements, zinc and vitamin D. Records will be requested from his primary care physician, recently had labs done but he does not know what his A1c is/worse. His questions were answered, and he was advised to call with any further questions or concerns. Follow-up in 2 weeks or sooner if needed. This note was generated with [employer] software. It may contain incorrect words, spelling, and punctuation that were not noted in checking the note before signing.
--- NOTE | 2024-11-21 13:54 | WC ---
PHOTO 11/20/24 L MED ANKLE
--- NOTE | 2024-11-21 13:57 | WC ---
PHOTO 11/20/24 R MED ANKLE
== END 2024-11-28 23:59 | disposition home or self-care (01) ==
LOC: WC 08:00
PROVIDERS: PCP Family Medicine; Referring Provider Family Medicine; Visit Provider Internal Medicine
DX: L97.322 Non-pressure chronic ulcer of left ankle with fat layer exposed (principal); L97.312 Non-pressure chronic ulcer of right ankle with fat layer exposed; I87.2 Venous insufficiency (chronic) (peripheral); R60.0 Localized edema; I73.9 Peripheral vascular disease, unspecified; Z79.82 Long term (current) use of aspirin; Z79.899 Other long term (current) drug therapy
CPT/HCPCS: 11042

== ENCOUNTER 2024-12-11 08:45 | Outpatient (RCR) | payer OTHER, SELFPAY ==
[2024-11-29 01:49] VITALS: BP 147/90; PULSE 82; RESP 18; TEMP 36.1; O2SAT 99; BMI 31.4
--- NOTE | 2024-12-02 07:50 | VDLE_ITS ---
Reason For Study: BLE foot ulcers RIGHT LEFT CFV is compressible, phasic, and INCOMPETENT CFV is compressible, phasic, and INCOMPETENT for greater than 1.0 second. for greater than 1.0 second. FV is compressible, phasic, and INCOMPETENT FV is compressible, phasic, and INCOMPETENT for greater than 1.0 second. for greater than 1.0 second. POP V is compressible, phasic, and POP V is compressible, phasic, and INCOMPETENT for greater than 1.0 second. INCOMPETENT for greater than 1.0 second. T/P Trunk is compressible. T/P Trunk is compressible. PTV is compressible. PTV is compressible. RT PerV is compressible. LT PerV is compressible. GSV appear to have been ablated from ankle to SFJ is INCOMPETENT and measures 0.62 cm. SFJ. GSV appears to have been ablated prox thigh Multiple tortuous accessories noted at knee to distal calf. and throughout calf that appear to branch ASV proximal thigh is INCOMPETENT for greater from SSV. than 0.5 seconds and measures 0.59 x 0.64 cm. SSV at junction is INCOMPETENT for greater than 0.5 seconds and measures 0.83 cm. Perforating Vessel at knee is INCOMPETENT for SSV at prox calf is INCOMPETENT for greater greater than 0.5 seconds and measures 0.26 than 0.5 seconds and measures 0.83 x 0.72 cm. cm. Procedure Perforating Vessel 10 cm distal to knee is This is a venous duplex using B-mode, color INCOMPETENT for greater than 0.5 seconds and flow and spectral Doppler. measures 0.16 cm. Exam performed in department. Perforating Vessel mid calf is INCOMPETENT The exam was diagnostic. for greater than 0.5 seconds and measures 0.20cm. SSV appears to have been ablated at junction. SSV mid calf is INCOMPETENT for greater than 0.5 seconds and measures 0.23 x 0.28 cm. ASV distal calf is INCOMPETENT for greater than 0.5 seconds and measures 0.43 x 0.53 cm. Multiple tortuous branches of perforators and SSV noted throughout calf. VL/Venous Duplex US - Hector Extrem Interpretation Summary Deep veins of the bilateral lower extremities are patent and compressible segme ntally. There is no evidence of bilateral lower extremity deep vein thrombosis. Positive for reflux in the right common femoral vein, femoral vein, popliteal v ein, small saphenous vein. Positive for reflux in the left common femoral vein, femoral vein, popliteal ve in, saphenofemoral junction, accessory saphenous vein in thigh, accessory saphenous vein in the ca lf, multiple medial calf perforators, small saphenous vein. Ordering Physician: Alice Amaya Referring Physician: George Frausto Performed By: Chilango Limon RVT
--- NOTE | 2024-12-02 07:50 | ART_ITS ---
Reason For Study: BLE foot wounds Procedure A bilateral lower extremity continuous wave Doppler with analog waveform analysis,segmental pressures,and ankle brachial indexes without exercise. Left Segmental Pressures Left brachial= 133mmHg. Left dorsalis pedis artery = 155mmHg. Left digit = 149 mmHg. The left dorsalis pedis waveforms are triphasic. Unable to acquire MOTOR OPERATOR pressure / waveform due to open wounds. Right Segmental Pressures Right brachial= 136mmHg. Right dorsalis pedis artery = 180mmHg. Right digit = 139 mmHg. The right dorsalis pedis waveforms are triphasic. Unable to acquire MOTOR OPERATOR pressure / waveform due to open wounds. Indices The right ankle brachial index by the dorsalis pedis is 1.32. The right digital- brachial index is 1.02. The left ankle brachial index by the dorsalis pedis is 1.14. The left digital-brachial index is 1.10. VL/Lower Ext Art Exam w/o Exercis Interpretation Summary Right NIC 1.32, normal. TBI and Doppler/PVR waveforms of the right leg normal a t rest. Left NIC 1.14, normal. TBI and Doppler/PVR waveforms of the left leg normal at rest. Ordering Physician: Alice Amaya Referring Physician: Arvind Frausto Performed By: Chilango Limon RVT
[2024-12-11 08:45] VITALS: BP 165/80; PULSE 104; RESP 18; TEMP 35.8; BMI 31.4
--- NOTE | 2024-12-11 12:55 | PCM.WC.PN ---
History of Present Illness Date of Service: 12/11/24 Chief Complaint: ulcers to the left lower leg History of Wound: This is a 54-year-old male presents to wound healing center with a long-standing history of chronic venous insufficiency, chronic venous hypertension, lower extremity edema, lower extremity pain, and chronic left lower extremity ulcer. The patient has previously undergone endovenous laser ablation of the left and right great saphenous vein, the small saphenous vein, the left accessory saphenous vein, and an incompetent left calf director learning services vein located 15 cm proximal to the left medial malleolus. He is currently wearing graduated compression stockings which are documented to be 20-30 mmHg compression and these are thigh high. He reports great compliance with use. He is also had previous arterial work-up with no intervention recommended by letter, his vascular surgeon. He denies taking nutritional supplementation. He saw dermatology and had a biopsy of the ulcer site. He also was previously treated by infectious disease for various contaminations and infections. He is not antibiotics at this time nor does he have any redness or odor coming from the wound. He denies fever, chill, nausea, vomiting, loss of appetite. 05/18/22: Mr. Jeronimo presents with a new right lower extremity ulceration. He states that this has been present for months and he has been trying to manage it at home without any significant improvement. Opened up months ago, no known precipitating factor. Has been applying wound dressings without any significant improvement. He reports increased drainage. Denies significant pain. No chills, fever or feeling of unwell. 10/16/24: Mr. Jeronimo presents with a new right lower extremity ulceration. He states that it started out as a very small area that was slipping and then in the last week, became rather extensive. He also reports a foul smell. Has noted increase lower extremity edema. He states that he has been wearing his compression (20 to 30 mmHg) consistently. No chills, fever or otherwise feeling of unwell. Also has a new area on his left lower medial leg. He states that he has been applying same 1 products to these new areas. Progress of Wound: No concerns reported at this time. Saw vascular last week and plan is for more workup prior to possible recommendation and intervention. Significant ara ulcer crusting on examination, he admits that he has not been dressing his ulcers daily as recommended. Denies increased pain, drainage or foul smell. He feels well. Objective Data Objective Data Vital Signs: Vital Signs Temp Pulse Resp BP Pulse Ox 96.5 F L 104 H 18 165/80 H 99 12/11/24 08:45 12/11/24 08:45 12/11/24 08:45 12/11/24 08:45 11/29/24 01:49 Body Mass Index (BMI) 31.4 Charges/Coding Procedures Integumentary 111xxx-113xx: [id number] Lakeisha subq tissue 20 sq cm/< Physical Exam Const alert, oriented x3 and no apparent distress General Appearance: cooperative and comfortable HEENT normocephalic Head and Scalp: normal to inspection, normocephalic and atraumatic Eyes EOMs intact bilaterally Neck full ROM and supple General: normal visual inspection Resp normal respiratory effort Effort and Inspection: able to speak in complete sentences Extremity normal to inspection General Extremity: edema Skin Wounds: wounds noted size Size: See clinical note, bed granulating well, margins well defined, no odor and open Neuro oriented x3, CN's II-XII intact bilaterally, moves all extremities and no focal motor deficits Psych mental status grossly normal, thought process normal, cooperative and affect normal Debridement Note Debridement Note Wound debrided: Right lower extremity Type of Debridement: Excisional debridement Anesthesia Used: 5% Lidocaine Gel Depth: Down to and including healthy tissue and in the subcutaneous layer Percentage of wound debrided: 100 Instrument Used: 5mm curette Tissue Removed: Slough and devitalized tissue Severity: Fat Layer Exposed Amount of bleeding with debridement: Mild Bleeding Controlled with: Pressure Patient tolerated procedure: Patient tolerated procedure well Post-Debridement Measurements and Additional Note: Post-Debridement Measurements/Treatment - Nurse 1 - General Ulcer Assessment Start: 12/11/24 08:44 Freq: Status: Active Protocol: SHANTA Activity Type Activity Date Activity User E-sign Co-sign Detail Recorded Client Recorded Date Recorded By Document 12/11/24 08:45 CARLOS [id number] 12/11/24 08:55 CARLOS 12/11/24 08:45 - Today's Visit Information Type of service Follow-up Visit (Physician/PLAN REP ) Arrival Mode Ambulatory Patient Identification Verified (Name & Yes ) Patient Requires Transmission-Based No Precautions Height and Weight Body Mass Index (BMI) 31.4 BMI Classification Obese Vital Signs Temperature (97.8 F-99.1 F) 96.5 F L Temperature Source Temporal Pulse Rate (60-100) 104 H Pulse Location Monitor Respiratory Rate (12-18) 18 Respiratory rate source Observation Blood Pressure (90/60-120/80) 165/80 H Blood Pressure Mean (mm Hg) 108 Source Monitor Position Semi-Fowlers Blood Pressure Location Left Arm History Since Last Visit- (Skip if this is Patient's initial visit) Have you changed medications since your No last visit? Any new allergies or adverse reactions No Had a fall/change in ADL's that may No increase risk of falls Signs or symptoms of abuse and/or No neglect since last visit Have you been in the hospital since your No last visit? Has dressing in place as prescribed Yes Has compression in place as prescribed Yes Has offloadiing in place as prescribed N/A Experienced any changes in pain level or No management Left Footwear Regular Shoe Right Footwear Regular Shoe Pain Scale: 0-10 Numeric Is Patient Pain Free? Yes WC - Nurse 1 - General Ulcer Measurement Start: 12/11/24 08:44 Freq: Status: Active Protocol: Activity Type Activity Date Activity User E-sign Co-sign Detail Recorded Client Recorded Date Recorded By Document 12/11/24 08:45 CARLOS [id number] 12/11/24 08:55 CARLOS 12/11/24 08:45 Wound Center Nurse 1 #19 Left medial Lower leg -Combined with other wound No -Photo Taken No -Epithelialization Small 1-33% -Tunneling No -Undermining/Tunneling No -Circular Undermining No -Exudate Amt Small -Exudate Type Serosanguineous -Wound Margin Flat & Intact -Granulation Amt Small (1-33%) -Granulation Quality [place] -Slough/Fibrin Yes -Necrosis Amt Small (1-33%) -Necrotic Tissue Type Adherent Slough -Structure Exposed N/A -Texture (Ara-wound Skin Appearance) Assessed, Excoriation, Localized Edema -Moisture (Ara-wound Skin Appearance) Assessed,Dry/ Scaly -Color (Ara-wound Skin Appearance) Assessed, Hemosiderin Staining -Temperature (Ara-wound Skin No Abnormality Appearance) (Pt Warm) -Tenderness on Palpation (Ara-wound No Skin Appearance) -Ulcer Cleansing Wound Cleanser -Foul Odor after Cleansing No -Anesthetic Used 5% Lidocaine Gel #18 Right Medial Ankle -Combined with other wound No -Current Size (cm) - Length 2.0 -Current Size (cm) - Width 0.8 -Current Size (cm) - Depth 0.1 -Total Square Cm 1.60 -Photo Taken No -Epithelialization Small 1-33% -Tunneling No -Undermining/Tunneling No -Circular Undermining No -Exudate Amt Small -Exudate Type Serosanguineous -Wound Margin Flat & Intact -Granulation Amt Small (1-33%) -Granulation Quality [place] -Slough/Fibrin Yes -Necrosis Amt Medium (34-66%) -Necrotic Tissue Type Adherent Slough -Structure Exposed N/A -Texture (Ara-wound Skin Appearance) Assessed, Localized Edema ,Scarring -Moisture (Ara-wound Skin Appearance) Assessed,Dry/ Scaly -Color (Ara-wound Skin Appearance) Assessed, Hemosiderin Staining -Temperature (Ara-wound Skin No Abnormality Appearance) (Pt Warm) -Tenderness on Palpation (Ara-wound No Skin Appearance) -Ulcer Cleansing Soap and Water -Foul Odor after Cleansing No -Anesthetic Used 5% Lidocaine Gel #10 Left Medial Ankle -Combined with other wound No -Current Size (cm) - Length 3.3 -Current Size (cm) - Width 1.4 -Current Size (cm) - Depth 0.2 -Total Square Cm 4.62 -Photo Taken No -Epithelialization Small 1-33% -Tunneling No -Undermining/Tunneling No -Circular Undermining No -Exudate Amt Medium -Exudate Type Serosanguineous -Wound Margin Flat & Intact -Granulation Amt Medium (34-66%) -Granulation Quality [place] -Slough/Fibrin Yes -Necrosis Amt Small (1-33%) -Necrotic Tissue Type Adherent Slough -Structure Exposed N/A -Texture (Ara-wound Skin Appearance) Assessed, Localized Edema -Moisture (Ara-wound Skin Appearance) Assessed,Dry/ Scaly -Color (Ara-wound Skin Appearance) Assessed, Hemosiderin Staining -Temperature (Ara-wound Skin No Abnormality Appearance) (Pt Warm) -Tenderness on Palpation (Ara-wound No Skin Appearance) -Ulcer Cleansing Soap and Water -Anesthetic Used 5% Lidocaine Gel Lower Limb Edema Present Yes Right Calf (cm) 37.2 Right Ankle (cm) 22.4 Left Calf (cm) 35.3 Left Ankle (cm) 22.3 WC - Nurse 2 - General Ulcer CM Notes Start: 12/11/24 08:44 Freq: Status: Active Protocol: Activity Type Activity Date Activity User E-sign Co-sign Detail Recorded Client Recorded Date Recorded By Document 12/11/24 09:19 [id number] 12/11/24 09:32 12/11/24 09:19 Wound Center Nurse 2 #18 Right Medial Ankle -Time 09:20 -Correct Patient Yes -Correct Side, Site, Position Yes -Correct Procedure Yes -Procedure Performed Yes -Type of Procedure Debridement -Clinical Debridement Subcutaneous -Tissue Removed Subcutaneous -Post Debridement (cm) - Length 2.5 -Post Debridement (cm) - Width 0.7 -Post Debridement (cm) - Depth 0.1 -Total Square (Post) (cm) 1.75 -Area of Debridement (cm) - Length 2.5 -Area of Debridement (cm) - Width 0.7 -Total Square (Area) (cm) 1.75 -Tunneling No -Undermining/Tunneling No -Circular Undermining No -Wound/Ulcer Outcome Not Healed -Ulcer Cleansing Rinsed/ Irrigated with Saline -Foul Odor after Cleansing No -Bioengineered Tissue No -Bleeding Controlled with Pressure -Treatment Response Procedure Tolerated Well -Debridement - Subq, 1st 20sq cm No #10 Left Medial Ankle -Time 09:20 -Correct Patient Yes -Correct Side, Site, Position Yes -Correct Procedure Yes -Procedure Performed Yes -Type of Procedure Debridement -Clinical Debridement Subcutaneous -Tissue Removed Subcutaneous -Post Debridement (cm) - Length 3.3 -Post Debridement (cm) - Width 1.3 -Post Debridement (cm) - Depth 0.3 -Total Square (Post) (cm) 4.29 -Area of Debridement (cm) - Length 3.3 -Area of Debridement (cm) - Width 1.3 -Total Square (Area) (cm) 4.29 -Tunneling No -Undermining/Tunneling No -Circular Undermining No -Wound/Ulcer Outcome Not Healed -Ulcer Cleansing Rinsed/ Irrigated with Saline -Foul Odor after Cleansing No -Bioengineered Tissue No -Bleeding Controlled with Pressure -Treatment Response Procedure Tolerated Well -Debridement - Subq, 1st 20sq cm Yes Pain Scale: 0-10 Numeric Is Patient Pain Free? Yes - Nurse 3 - General Ulcer D/C NN Start: 12/11/24 08:44 Freq: Status: Active Protocol: Activity Type Activity Date Activity User E-sign Co-sign Detail Recorded Client Recorded Date Recorded By Document 12/11/24 09:36 [email or web address] [id number] 12/11/24 09:37 KW 12/11/24 09:36 Wound Care Center Nurse 3 #18 Right Medial Ankle -Primary Dressing Covered/Secured with Dry Gauze, Secured with Tape #10 Left Medial Ankle -Primary Dressing Covered/Secured with Dry Gauze, Secured with Tape Pain Scale: 0-10 Numeric Is Patient Pain Free? Yes WC - Visit Discharge Discharge Condition Stable Ambulatory Status Ambulatory Transportation Private Auto Medication Reconcilliation completed & No provided to patient/care provider Clinical Summary of Care Provided Yes Notes: at home care: wash dakins, then apply bacroban, aquacel extra, adaptic, keramax and kerlix Additional Wound Wound debrided: Left lower extremity Type of Debridement: Excisional debridement Anesthesia Used: 5% Lidocaine Gel Depth: Down to and including healthy tissue and in the subcutaneous layer Percentage of wound debrided: 100 Instrument Used: 5mm curette Tissue Removed: Slough and devitalized tissue Severity: Fat Layer Exposed Amount of bleeding with debridement: Mild Bleeding Controlled with: Pressure Patient tolerated procedure: Patient tolerated procedure well Assessment/Plan Assessment/Plan (1) Ulcer of left lower extremity with fat layer exposed: CODE(S): L97.922 - Non-pressure chronic ulcer of unspecified part of left lower leg with fat layer exposed (2) PVD (peripheral vascular disease): CODE(S): I73.9 - Peripheral vascular disease, unspecified (3) Chronic venous insufficiency: CODE(S): I87.2 - Venous insufficiency (chronic) (peripheral) (4) Delayed wound healing: CODE(S): T14.8XXD - Other injury of unspecified body region, subsequent encounter (5) Ulcer of right lower extremity with fat layer exposed: CODE(S): L97.912 - Non-pressure chronic ulcer of unspecified part of right lower leg with fat layer exposed PLAN: Plan Debridement done as documented above, procedure was well-tolerated. Overall, stable. As above, not doing dressing changes as recommended. He was strongly advised to comply with recommendations. Continue 30 minutes Dakin soak daily. Apply Bactroban, Aquacel extra to ulcers, Adaptic to surrounding skin and cover with KerraMax care. Continue use of compression stockings, leg elevation and exercise. Increased protein intake, protein supplements, zinc and vitamin D. Has reestablished with vascular and plan is for further testing/ultrasound to decide if/what interventions will be done. His questions were answered, and he was advised to call with any further questions or concerns. Follow-up in 2 weeks or sooner if needed. This note was generated with [employer] dictation software. It may contain incorrect words, spelling, and punctuation that were not noted in checking the note before signing.
== END 2024-12-26 23:59 | disposition home or self-care (01) ==
LOC: WC 08:45
PROVIDERS: PCP Family Medicine; Referring Provider Family Medicine; Visit Provider Internal Medicine
DX: L97.912 Non-pressure chronic ulcer of unspecified part of right lower leg with fat layer exposed (principal); L97.922 Non-pressure chronic ulcer of unspecified part of left lower leg with fat layer exposed; I87.2 Venous insufficiency (chronic) (peripheral); I73.9 Peripheral vascular disease, unspecified; R60.0 Localized edema; Z79.82 Long term (current) use of aspirin; Z79.899 Other long term (current) drug therapy
CPT/HCPCS: 11042; 93923; 93970

== ENCOUNTER 2025-01-15 08:00 | Outpatient (RCR) | payer OTHER, SELFPAY ==
[2024-12-27 02:11] VITALS: BP 165/80; PULSE 104; RESP 18; TEMP 35.8; O2SAT 99; BMI 31.4
[2025-01-01 08:04] VITALS: BP 156/79; PULSE 92; RESP 18; TEMP 35.6; BMI 31.4
--- NOTE | 2025-01-01 09:03 | PCM.WC.PN ---
History of Present Illness Date of Service: 01/01/25 Chief Complaint: ulcers to the left lower leg History of Wound: This is a 54-year-old male presents to wound healing center with a long-standing history of chronic venous insufficiency, chronic venous hypertension, lower extremity edema, lower extremity pain, and chronic left lower extremity ulcer. 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 He is currently wearing graduated compression stockings which are documented to be 20-30 mmHg compression and these are thigh high. He reports great compliance with use. He is also had previous arterial work-up with no intervention recommended by letter, his vascular surgeon. He denies taking nutritional supplementation. He saw dermatology and had a biopsy of the ulcer site. He also was previously treated by infectious disease for various contaminations and infections. He is not antibiotics at this time nor does he have any redness or odor coming from the wound. He denies fever, chill, nausea, vomiting, loss of appetite. 05/18/22: Mr. Jeronimo presents with a new right lower extremity ulceration. He states that this has been present for months and he has been trying to manage it at home without any significant improvement. Opened up months ago, no known precipitating factor. Has been applying wound dressings without any significant improvement. He reports increased drainage. Denies significant pain. No chills, fever or feeling of unwell. 10/16/24: Mr. Jeronimo presents with a new right lower extremity ulceration. He states that it started out as a very small area that was slipping and then in the last week, became rather extensive. He also reports a foul smell. Has noted increase lower extremity edema. He states that he has been wearing his compression (20 to 30 mmHg) consistently. No chills, fever or otherwise feeling of unwell. Also has a new area on his left lower medial leg. He states that he has been applying same 1 products to these new areas. Progress of Wound: No acute concerns at this time. He states that he has been doing daily dressing changes as recommended. Has an appointment with vascular today. Objective Data Objective Data Vital Signs: Vital Signs Temp Pulse Resp BP Pulse Ox O2 Del Method 96.0 F L 92 18 156/79 H 99 Room Air 01/01/25 08:04 01/01/25 08:04 01/01/25 08:04 01/01/25 08:04 12/27/24 02:11 01/01/25 08:04 Oxygen Delivery Method Room Air Body Mass Index (BMI) 31.4 Charges/Coding Procedures Integumentary 111xxx-113xx: [id number] [place] subq tissue 20 sq cm/< Physical Exam Const alert, oriented x3 and no apparent distress General Appearance: cooperative and comfortable HEENT normocephalic Head and Scalp: normal to inspection, normocephalic and atraumatic Eyes EOMs intact bilaterally Neck full ROM and supple General: normal visual inspection Resp normal respiratory effort Effort and Inspection: able to speak in complete sentences Extremity normal to inspection General Extremity: edema Skin Wounds: wounds noted size Size: See clinical note, bed granulating well, margins well defined, no odor and open Neuro oriented x3, CN's II-XII intact bilaterally, moves all extremities and no focal motor deficits Psych mental status grossly normal, thought process normal, cooperative and affect normal Debridement Note Debridement Note Wound debrided: Right medial ankle/lower extremity Type of Debridement: Excisional debridement Anesthesia Used: 5% Lidocaine Gel Depth: Down to and including healthy tissue and in the subcutaneous layer Percentage of wound debrided: 100 Instrument Used: 5mm curette Tissue Removed: Slough and devitalized tissue Severity: Fat Layer Exposed Amount of bleeding with debridement: Mild Bleeding Controlled with: Compression and gauze Patient tolerated procedure: Patient tolerated procedure well Post-Debridement Measurements and Additional Note: Post-Debridement Measurements/Treatment - Nurse 1 - General Ulcer Assessment Start: 01/01/25 08:04 Freq: Status: Active Protocol: [email or web address] Activity Type Activity Date Activity User E-sign Co-sign Detail Recorded Client Recorded Date Recorded By Document 01/01/25 08:04 [id number] [id number] 01/01/25 08:11 KW 01/01/25 08:04 - Today's Visit Information Type of service Follow-up Visit (Physician/LOADING INSPECTOR ) Arrival Mode Ambulatory Patient Identification Verified (Name & Yes ) Height and Weight Body Mass Index (BMI) 31.4 BMI Classification Obese Vital Signs Temperature (97.8 F-99.1 F) 96.0 F L Temperature Source Temporal Pulse Rate (60-100) 92 Pulse Location Monitor Respiratory Rate (12-18) 18 Respiratory rate source Observation Oxygen Delivery Method Room Air Blood Pressure (90/60-120/80) 156/79 H Blood Pressure Mean (mm Hg) 104 Source Monitor Position Semi-Fowlers Blood Pressure Location Left Arm History Since Last Visit- (Skip if this is Patient's initial visit) Have you changed medications since your No last visit? Any new allergies or adverse reactions No Had a fall/change in ADL's that may No increase risk of falls Signs or symptoms of abuse and/or No neglect since last visit Have you been in the hospital since your No last visit? Has dressing in place as prescribed Yes Has compression in place as prescribed Yes Has offloadiing in place as prescribed N/A Experienced any changes in pain level or No management Left Footwear Regular Shoe Right Footwear Regular Shoe Pain Scale: 0-10 Numeric Is Patient Pain Free? Yes WC - Nurse 1 - General Ulcer Measurement Start: 01/01/25 08:04 Freq: Status: Active Protocol: Activity Type Activity Date Activity User E-sign Co-sign Detail Recorded Client Recorded Date Recorded By Document 01/01/25 08:04 [id number] 01/01/25 08:11 KW 01/01/25 08:04 Wound Center Nurse 1 #18 Right Medial Ankle -Current Size (cm) - Length 0.6 -Current Size (cm) - Width 0.6 -Current Size (cm) - Depth 0.1 -Total Square Cm 0.36 -Date of Last Picture (Recall this 01/01/25 field) -Exudate Amt Small -Exudate Type Serosanguineous -Wound Margin Distinct, Outline Attached -Granulation Amt Large (67-100%) -Granulation Quality Red -Necrosis Amt Small (1-33%) -Necrotic Tissue Type Adherent Slough -Texture (Ara-wound Skin Appearance) Assessed,Callus -Moisture (Ara-wound Skin Appearance) Assessed,Dry/ Scaly -Color (Ara-wound Skin Appearance) Assessed -Temperature (Ara-wound Skin No Abnormality Appearance) (Pt Warm) -Tenderness on Palpation (Ara-wound No Skin Appearance) -Ulcer Cleansing Rinsed/ Irrigated with Saline -Foul Odor after Cleansing No -Anesthetic Used 5% Lidocaine Gel #10 Left Medial Ankle -Current Size (cm) - Length 2.8 -Current Size (cm) - Width 1 -Current Size (cm) - Depth 0.2 -Total Square Cm 2.8 -Date of Last Picture (Recall this 01/01/25 field) -Exudate Amt Small -Exudate Type Serosanguineous -Wound Margin Distinct, Outline Attached -Granulation Amt Large (67-100%) -Granulation Quality [place],Red -Necrosis Amt Small (1-33%) -Necrotic Tissue Type Adherent Slough -Texture (Ara-wound Skin Appearance) Assessed -Moisture (Ara-wound Skin Appearance) Assessed,Dry/ Scaly -Color (Ara-wound Skin Appearance) Assessed -Temperature (Ara-wound Skin No Abnormality Appearance) (Pt Warm) -Tenderness on Palpation (Ara-wound No Skin Appearance) -Ulcer Cleansing Rinsed/ Irrigated with Saline -Foul Odor after Cleansing No -Anesthetic Used 5% Lidocaine Gel WC - Nurse 2 - General Ulcer CM Notes Start: 01/01/25 08:04 Freq: Status: Active Protocol: Activity Type Activity Date Activity User E-sign Co-sign Detail Recorded Client Recorded Date Recorded By Document 01/01/25 08:24 [id number] 01/01/25 08:33 01/01/25 08:24 Wound Center Nurse 2 #18 Right Medial Ankle -Time 08:25 -Correct Patient Yes -Correct Side, Site, Position Yes -Correct Procedure Yes -Procedure Performed Yes -Type of Procedure Debridement -Clinical Debridement Subcutaneous -Tissue Removed Subcutaneous -Post Debridement (cm) - Length 2.4 -Post Debridement (cm) - Width 0.8 -Post Debridement (cm) - Depth 0.1 -Total Square (Post) (cm) 1.92 -Area of Debridement (cm) - Length 2.4 -Area of Debridement (cm) - Width 0.8 -Total Square (Area) (cm) 1.92 -Tunneling No -Undermining/Tunneling No -Circular Undermining No -Wound/Ulcer Outcome Not Healed -Ulcer Cleansing Rinsed/ Irrigated with Saline -Foul Odor after Cleansing No -Bioengineered Tissue No -Bleeding Controlled with Pressure -Treatment Response Procedure Tolerated Well -Debridement - Open, 1st 20sq cm No -Debridement - Subq, 1st 20sq cm No -Debridement - Muscle / Fascia, 1st No 20sq cm -Debridement - Bone, 1st 20sq cm No #10 Left Medial Ankle -Time 08:25 -Correct Patient Yes -Correct Side, Site, Position Yes -Correct Procedure Yes -Procedure Performed Yes -Type of Procedure Debridement -Clinical Debridement Subcutaneous -Tissue Removed Subcutaneous -Post Debridement (cm) - Length 3.0 -Post Debridement (cm) - Width 1.2 -Post Debridement (cm) - Depth 0.3 -Total Square (Post) (cm) 3.60 -Area of Debridement (cm) - Length 3.0 -Area of Debridement (cm) - Width 1.2 -Total Square (Area) (cm) 3.60 -Tunneling No -Undermining/Tunneling No -Circular Undermining No -Wound/Ulcer Outcome Not Healed -Ulcer Cleansing Rinsed/ Irrigated with Saline -Foul Odor after Cleansing No -Bioengineered Tissue No -Bleeding Controlled with Pressure -Treatment Response Procedure Tolerated Well -Debridement - Subq, 1st 20sq cm Yes Pain Scale: 0-10 Numeric Is Patient Pain Free? Yes - Nurse 3 - General Ulcer D/C NN Start: 01/01/25 08:04 Freq: Status: Active Protocol: Activity Type Activity Date Activity User E-sign Co-sign Detail Recorded Client Recorded Date Recorded By Document 01/01/25 08:50 DL [id number] 01/01/25 08:53 DL 01/01/25 08:50 Wound Care Center Nurse 3 #18 Right Medial Ankle -Ulcer Cleansing dakins -Primary Dressing Applied NonAdherent Contact Layer -Other Dressing Keramax/aquacel Ex -Primary Dressing Covered/Secured with Secured with Tape #10 Left Medial Ankle -Ulcer Cleansing dakins -Primary Dressing Applied NonAdherent Contact Layer -Other Dressing aquacel Ex/ keramax -Primary Dressing Covered/Secured with Secured with Tape BLE -Stockings Yes Pain Scale: 0-10 Numeric Is Patient Pain Free? Yes WC - Visit Discharge Discharge Condition Stable Ambulatory Status Ambulatory Transportation Private Auto Additional Wound Wound debrided: Left medial ankle/lower extremity Type of Debridement: Excisional debridement Anesthesia Used: 5% Lidocaine Gel Depth: Down to and including healthy tissue and in the subcutaneous layer Percentage of wound debrided: 100 Instrument Used: 5mm curette Tissue Removed: Slough and devitalized tissue Severity: Fat Layer Exposed Amount of bleeding with debridement: Mild Bleeding Controlled with: Pressure Patient tolerated procedure: Patient tolerated procedure well Assessment/Plan Assessment/Plan (1) Ulcer of left lower extremity with fat layer exposed: CODE(S): L97.922 - Non-pressure chronic ulcer of unspecified part of left lower leg with fat layer exposed (2) PVD (peripheral vascular disease): CODE(S): I73.9 - Peripheral vascular disease, unspecified (3) Chronic venous insufficiency: CODE(S): I87.2 - Venous insufficiency (chronic) (peripheral) (4) Delayed wound healing: CODE(S): T14.8XXD - Other injury of unspecified body region, subsequent encounter (5) Ulcer of right lower extremity with fat layer exposed: CODE(S): L97.912 - Non-pressure chronic ulcer of unspecified part of right lower leg with fat layer exposed PLAN: Plan Debridement done as documented above, procedure was well-tolerated. Overall, stable. No acute concerns at this time. Continue 30 minutes Dakin's soak daily. Apply Bactroban, Aquacel extra to ulcers, Adaptic to surrounding skin and cover with KerraMax care. Continue use of compression stockings, leg elevation and exercise. Increased protein intake, protein supplements, zinc and vitamin D. Has an appointment with vascular for an ultrasound later today. His questions were answered, and he was advised to call with any further questions or concerns. Follow-up in 2 weeks or sooner if needed. This note was generated with [employer] dictation software. It may contain incorrect words, spelling, and punctuation that were not noted in checking the note before signing.
[2025-01-15 08:23] VITALS: BP 159/69; PULSE 92; RESP 18; TEMP 36.4; BMI 31.4
--- NOTE | 2025-01-15 08:44 | PCM.WC.PN ---
History of Present Illness Date of Service: 01/15/25 Chief Complaint: ulcers to the left lower leg History of Wound: This is a 54-year-old male presents to wound healing center with a long-standing history of chronic venous insufficiency, chronic venous hypertension, lower extremity edema, lower extremity pain, and chronic left lower extremity ulcer. 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 He is currently wearing graduated compression stockings which are documented to be 20-30 mmHg compression and these are thigh high. He reports great compliance with use. He is also had previous arterial work-up with no intervention recommended by letter, his vascular surgeon. He denies taking nutritional supplementation. He saw dermatology and had a biopsy of the ulcer site. He also was previously treated by infectious disease for various contaminations and infections. He is not antibiotics at this time nor does he have any redness or odor coming from the wound. He denies fever, chill, nausea, vomiting, loss of appetite. 05/18/22: Mr. Jeronimo presents with a new right lower extremity ulceration. He states that this has been present for months and he has been trying to manage it at home without any significant improvement. Opened up months ago, no known precipitating factor. Has been applying wound dressings without any significant improvement. He reports increased drainage. Denies significant pain. No chills, fever or feeling of unwell. 10/16/24: Mr. Jeronimo presents with a new right lower extremity ulceration. He states that it started out as a very small area that was slipping and then in the last week, became rather extensive. He also reports a foul smell. Has noted increase lower extremity edema. He states that he has been wearing his compression (20 to 30 mmHg) consistently. No chills, fever or otherwise feeling of unwell. Also has a new area on his left lower medial leg. He states that he has been applying same 1 products to these new areas. Progress of Wound: No acute concerns at this time. He states that he has been doing dressing changes as recommended. Seen by vascular few weeks ago and plan is for an ablation. Objective Data Objective Data Vital Signs: Vital Signs Temp Pulse Resp BP Pulse Ox O2 Del Method 97.5 F L 92 18 159/69 H 99 Room Air 01/15/25 08:23 01/15/25 08:23 01/15/25 08:23 01/15/25 08:23 12/27/24 02:11 01/01/25 08:04 Oxygen Delivery Method Room Air Body Mass Index (BMI) 31.4 Charges/Coding Procedures Integumentary 111xxx-113xx: [id number] Lakeisha subq tissue 20 sq cm/< Physical Exam Const alert, oriented x3 and no apparent distress General Appearance: cooperative and comfortable HEENT normocephalic Head and Scalp: normal to inspection, normocephalic and atraumatic Eyes EOMs intact bilaterally Neck full ROM and supple General: normal visual inspection Resp normal respiratory effort Effort and Inspection: able to speak in complete sentences Extremity normal to inspection General Extremity: edema Skin Wounds: wounds noted size Size: See clinical note, bed granulating well, margins well defined, no odor and open Neuro oriented x3, CN's II-XII intact bilaterally, moves all extremities and no focal motor deficits Psych mental status grossly normal, thought process normal, cooperative and affect normal Debridement Note Debridement Note Wound debrided: Right medial ankle/lower extremity Type of Debridement: Excisional debridement Anesthesia Used: 5% Lidocaine Gel Depth: Down to and including healthy tissue and in the subcutaneous layer Percentage of wound debrided: 100 Instrument Used: 3mm curette Tissue Removed: Slough and devitalized tissue Severity: Fat Layer Exposed Amount of bleeding with debridement: Mild Bleeding Controlled with: Pressure Patient tolerated procedure: Patient tolerated procedure well Post-Debridement Measurements and Additional Note: Post-Debridement Measurements/Treatment - Nurse 1 - General Ulcer Assessment Start: 01/01/25 08:04 Freq: Status: Active Protocol: [email or web address] Activity Type Activity Date Activity User E-sign Co-sign Detail Recorded Client Recorded Date Recorded By Document 01/01/25 08:04 KW [id number] 01/01/25 08:11 KW Document 01/15/25 08:23 RB [id number] 01/15/25 08:26 RB 01/01/25 01/15/25 08:04 08:23 - Today's Visit Information Type of service Follow-up Visit Follow-up Visit (Physician/VAUDEVILLE ACTOR (Physician/VAUDEVILLE ACTOR ) ) Arrival Mode Ambulatory Ambulatory Transfer Assistance None Patient Identification Verified (Name & Yes Yes ) Patient Requires Transmission-Based No Precautions Height and Weight Body Mass Index (BMI) 31.4 31.4 BMI Classification Obese Obese Vital Signs Temperature (97.8 F-99.1 F) 96.0 F L 97.5 F L Temperature Source Temporal Temporal Pulse Rate (60-100) 92 92 Pulse Location Monitor Monitor Respiratory Rate (12-18) 18 18 Respiratory rate source Observation Observation Oxygen Delivery Method Room Air Blood Pressure (90/60-120/80) 156/79 H 159/69 H Blood Pressure Mean (mm Hg) 104 99 Source Monitor Monitor Position Semi-Fowlers Semi-Fowlers Blood Pressure Location Left Arm Left Arm History Since Last Visit- (Skip if this is Patient's initial visit) Have you changed medications since your No No last visit? Any new allergies or adverse reactions No No Had a fall/change in ADL's that may No No increase risk of falls Signs or symptoms of abuse and/or No No neglect since last visit Have you been in the hospital since your No No last visit? Has dressing in place as prescribed Yes Yes Has compression in place as prescribed Yes Yes Has offloadiing in place as prescribed N/A N/A Experienced any changes in pain level or No No management Left Footwear Regular Shoe Regular Shoe Right Footwear Regular Shoe Regular Shoe Pain Scale: 0-10 Numeric Is Patient Pain Free? Yes Yes WC - Nurse 1 - General Ulcer Measurement Start: 01/01/25 08:04 Freq: Status: Active Protocol: Activity Type Activity Date Activity User E-sign Co-sign Detail Recorded Client Recorded Date Recorded By Document 01/01/25 08:04 KW [id number] 01/01/25 08:11 KW Document 01/15/25 08:23 RB [id number] 01/15/25 08:26 RB 01/01/25 01/15/25 08:04 08:23 Wound Center Nurse 1 #18 Right Medial Ankle -Combined with other wound No -Current Size (cm) - Length 0.6 0.8 -Current Size (cm) - Width 0.6 0.4 -Current Size (cm) - Depth 0.1 0.2 -Total Square Cm 0.36 0.32 -Date of Last Picture (Recall this 01/01/25 field) -Photo Taken Yes -Tunneling No -Undermining/Tunneling No -Circular Undermining No -Exudate Amt Small Medium -Exudate Type Serosanguineous Serosanguineous -Wound Margin Distinct, Thickened Outline Attached -Granulation Amt Large (67-100%) Medium (34-66%) -Granulation Quality Red [place] -Slough/Fibrin Yes -Necrosis Amt Small (1-33%) Medium (34-66%) -Necrotic Tissue Type Adherent Slough Adherent Slough -Structure Exposed N/A -Texture (Ara-wound Skin Appearance) Assessed,Callus Assessed -Moisture (Ara-wound Skin Appearance) Assessed,Dry/ Dry/Scaly Scaly -Color (Ara-wound Skin Appearance) Assessed Assessed -Temperature (Ara-wound Skin No Abnormality No Abnormality Appearance) (Pt Warm) (Pt Warm) -Tenderness on Palpation (Ara-wound No No Skin Appearance) -Ulcer Cleansing Rinsed/ Wound Cleanser Irrigated with Saline -Foul Odor after Cleansing No No -Anesthetic Used 5% Lidocaine 5% Lidocaine Gel Gel #10 Left Medial Ankle -Combined with other wound No -Current Size (cm) - Length 2.8 2.8 -Current Size (cm) - Width 1 1 -Current Size (cm) - Depth 0.2 0.3 -Total Square Cm 2.8 2.8 -Date of Last Picture (Recall this 01/01/25 field) -Photo Taken Yes -Tunneling No -Undermining/Tunneling No -Circular Undermining No -Exudate Amt Small Medium -Exudate Type Serosanguineous Serosanguineous -Wound Margin Distinct, Thickened Outline Attached -Granulation Amt Large (67-100%) Medium (34-66%) -Granulation Quality [place],Red [place] -Slough/Fibrin Yes -Necrosis Amt Small (1-33%) Medium (34-66%) -Necrotic Tissue Type Adherent Slough Adherent Slough -Structure Exposed N/A -Texture (Ara-wound Skin Appearance) Assessed Assessed -Moisture (Ara-wound Skin Appearance) Assessed,Dry/ Dry/Scaly Scaly -Color (Ara-wound Skin Appearance) Assessed Assessed -Temperature (Ara-wound Skin No Abnormality No Abnormality Appearance) (Pt Warm) (Pt Warm) -Tenderness on Palpation (Ara-wound No No Skin Appearance) -Ulcer Cleansing Rinsed/ Wound Cleanser Irrigated with Saline -Foul Odor after Cleansing No No -Anesthetic Used 5% Lidocaine 5% Lidocaine Gel Gel Lower Limb Edema Present Yes Right Calf (cm) 31.2 Right Ankle (cm) 22.8 Left Calf (cm) 36.5 Left Ankle (cm) 23.8 WC - Nurse 2 - General Ulcer CM Notes Start: 01/01/25 08:04 Freq: Status: Active Protocol: Activity Type Activity Date Activity User E-sign Co-sign Detail Recorded Client Recorded Date Recorded By Document 01/01/25 08:24 GM [id number] 01/01/25 08:33 GM Edit Result 01/01/25 08:24 GM (1) [id number] 01/01/25 13:47 GM Document 01/15/25 08:32 GM [id number] 01/15/25 08:40 GM (1) #18 Right Medial Ankle - Bleeding Controlled with Pressure => Pressure,Silver => Nitrate 01/01/25 01/15/25 08:24 08:32 Wound Center Nurse 2 #18 Right Medial Ankle -Time 08: 08:32 -Correct Patient Yes Yes -Correct Side, Site, Position Yes Yes -Correct Procedure Yes Yes -Procedure Performed Yes Yes -Type of Procedure Debridement Debridement -Clinical Debridement Subcutaneous Subcutaneous -Tissue Removed Subcutaneous Subcutaneous -Post Debridement (cm) - Length 2.4 1.2 -Post Debridement (cm) - Width 0.8 0.5 -Post Debridement (cm) - Depth 0.1 0.1 -Total Square (Post) (cm) 1.92 0.60 -Area of Debridement (cm) - Length 2.4 1.2 -Area of Debridement (cm) - Width 0.8 0.5 -Total Square (Area) (cm) 1.92 0.60 -Tunneling No No -Undermining/Tunneling No No -Circular Undermining No No -Wound/Ulcer Outcome Not Healed Not Healed -Ulcer Cleansing Rinsed/ Rinsed/ Irrigated with Irrigated with Saline Saline -Foul Odor after Cleansing No No -Bioengineered Tissue No No -Bleeding Controlled with Pressure,Silver Pressure Nitrate -Treatment Response Procedure Procedure Tolerated Well Tolerated Well -Debridement - Open, 1st 20sq cm No -Debridement - Subq, 1st 20sq cm No No -Debridement - Muscle / Fascia, 1st No 20sq cm -Debridement - Bone, 1st 20sq cm No #10 Left Medial Ankle -Time 08: 08:33 -Correct Patient Yes Yes -Correct Side, Site, Position Yes Yes -Correct Procedure Yes Yes -Procedure Performed Yes Yes -Type of Procedure Debridement Debridement -Clinical Debridement Subcutaneous Subcutaneous -Tissue Removed Subcutaneous Subcutaneous -Post Debridement (cm) - Length 3.0 3.1 -Post Debridement (cm) - Width 1.2 1.2 -Post Debridement (cm) - Depth 0.3 0.3 -Total Square (Post) (cm) 3.60 3.72 -Area of Debridement (cm) - Length 3.0 3.1 -Area of Debridement (cm) - Width 1.2 1.2 -Total Square (Area) (cm) 3.60 3.72 -Tunneling No No -Undermining/Tunneling No No -Circular Undermining No No -Wound/Ulcer Outcome Not Healed Not Healed -Ulcer Cleansing Rinsed/ Rinsed/ Irrigated with Irrigated with Saline Saline -Foul Odor after Cleansing No No -Bioengineered Tissue No No -Bleeding Controlled with Pressure Pressure -Treatment Response Procedure Procedure Tolerated Well Tolerated Well -Offloading No -Debridement - Subq, 1st 20sq cm Yes Yes Pain Scale: 0-10 Numeric Is Patient Pain Free? Yes Yes - Nurse 3 - General Ulcer D/C NN Start: 01/01/25 08:04 Freq: Status: Active Protocol: Activity Type Activity Date Activity User E-sign Co-sign Detail Recorded Client Recorded Date Recorded By Document 01/01/25 08:50 DL [id number] 01/01/25 08:53 DL 01/01/25 08:50 Wound Care Center Nurse 3 #18 Right Medial Ankle -Ulcer Cleansing dakins -Primary Dressing Applied NonAdherent Contact Layer -Other Dressing Keramax/aquacel Ex -Primary Dressing Covered/Secured with Secured with Tape #10 Left Medial Ankle -Ulcer Cleansing dakins -Primary Dressing Applied NonAdherent Contact Layer -Other Dressing aquacel Ex/ keramax -Primary Dressing Covered/Secured with Secured with Tape BLE -Stockings Yes Pain Scale: 0-10 Numeric Is Patient Pain Free? Yes - Visit Discharge Discharge Condition Stable Ambulatory Status Ambulatory Transportation Private Auto Additional Wound Wound debrided: Left medial ankle/lower extremity Type of Debridement: Excisional debridement Anesthesia Used: 5% Lidocaine Gel Depth: Down to and including healthy tissue and in the subcutaneous layer Percentage of wound debrided: 100 Instrument Used: 5mm curette Tissue Removed: Slough and devitalized tissue Severity: Fat Layer Exposed Amount of bleeding with debridement: Mild Bleeding Controlled with: Pressure Patient tolerated procedure: Patient tolerated procedure well Assessment/Plan Assessment/Plan (1) Ulcer of left lower extremity with fat layer exposed: CODE(S): L97.922 - Non-pressure chronic ulcer of unspecified part of left lower leg with fat layer exposed (2) PVD (peripheral vascular disease): CODE(S): I73.9 - Peripheral vascular disease, unspecified (3) Chronic venous insufficiency: CODE(S): I87.2 - Venous insufficiency (chronic) (peripheral) (4) Delayed wound healing: CODE(S): T14.8XXD - Other injury of unspecified body region, subsequent encounter (5) Ulcer of right lower extremity with fat layer exposed: CODE(S): L97.912 - Non-pressure chronic ulcer of unspecified part of right lower leg with fat layer exposed PLAN: Plan Debridement done as documented above, procedure was well-tolerated. Overall, stable. No acute concerns at this time. Right lower extremity with some improvement, left, stable. As above, was seen by vascular on the 6th and per documentation, -right ankle wound directly associated with varicosities originating from popliteal fossa, no perforators; would potentially be amendable to direct foam sclero -left ankle wound directly associated with varicosities and adjacent lumpia wrapper maker; lumpia wrapper maker direct ablation vs foam vs both. Continue 30 minutes Dakin's soak daily. Apply Bactroban, Aquacel extra to ulcers, Adaptic to surrounding skin and cover with KerraMax care. Continue use of compression stockings, leg elevation and exercise. Increased protein intake, protein supplements, zinc and vitamin D. Optimal diabetes control discussed, last A1C was 5.9. His questions were answered, and he was advised to call with any further questions or concerns. Follow-up in 2 weeks or sooner if needed. This note was generated with [employer] dictation software. It may contain incorrect words, spelling, and punctuation that were not noted in checking the note before signing.
--- NOTE | 2025-01-16 08:25 | WC ---
PHOTO 01/15/25 RIGHT FOOT
--- NOTE | 2025-01-16 08:39 | WC ---
PHOTO 01/15/25 LEFT FOOT
== END 2025-01-26 23:59 | disposition home or self-care (01) ==
LOC: WC 08:00
PROVIDERS: PCP Family Medicine; Referring Provider Family Medicine; Visit Provider Internal Medicine
DX: I87.312 Chronic venous hypertension (idiopathic) with ulcer of left lower extremity (principal); L97.322 Non-pressure chronic ulcer of left ankle with fat layer exposed; I87.311 Chronic venous hypertension (idiopathic) with ulcer of right lower extremity; L97.812 Non-pressure chronic ulcer of other part of right lower leg with fat layer exposed; I73.9 Peripheral vascular disease, unspecified; R60.0 Localized edema; I87.2 Venous insufficiency (chronic) (peripheral)
CPT/HCPCS: 11042

== ENCOUNTER 2025-02-12 08:00 | Outpatient (RCR) | payer OTHER, SELFPAY ==
[2025-01-27 00:54] VITALS: BP 159/69; PULSE 92; RESP 18; TEMP 36.4; O2SAT 99; BMI 31.4
[2025-01-29 08:06] VITALS: TEMP 36.1; BMI 31.4
--- NOTE | 2025-01-29 09:01 | PCM.WC.PN ---
History of Present Illness Date of Service: 01/29/25 Chief Complaint: ulcers to the left lower leg History of Wound: This is a 54-year-old male presents to wound healing center with a long-standing history of chronic venous insufficiency, chronic venous hypertension, lower extremity edema, lower extremity pain, and chronic left lower extremity ulcer. The patient has previously undergone endovenous laser ablation of the left and right great saphenous vein, the small saphenous vein, the left accessory saphenous vein, and an incompetent left calf [employer] vein located 15 cm proximal to the left medial malleolus. He is currently wearing graduated compression stockings which are documented to be 20-30 mmHg compression and these are thigh high. He reports great compliance with use. He is also had previous arterial work-up with no intervention recommended by letter, his vascular surgeon. He denies taking nutritional supplementation. He saw dermatology and had a biopsy of the ulcer site. He also was previously treated by infectious disease for various contaminations and infections. He is not antibiotics at this time nor does he have any redness or odor coming from the wound. He denies fever, chill, nausea, vomiting, loss of appetite. 05/18/22: Mr. Jeronimo presents with a new right lower extremity ulceration. He states that this has been present for months and he has been trying to manage it at home without any significant improvement. Opened up months ago, no known precipitating factor. Has been applying wound dressings without any significant improvement. He reports increased drainage. Denies significant pain. No chills, fever or feeling of unwell. 10/16/24: Mr. Jeronimo presents with a new right lower extremity ulceration. He states that it started out as a very small area that was slipping and then in the last week, became rather extensive. He also reports a foul smell. Has noted increase lower extremity edema. He states that he has been wearing his compression (20 to 30 mmHg) consistently. No chills, fever or otherwise feeling of unwell. Also has a new area on his left lower medial leg. He states that he has been applying same 1 products to these new areas. Progress of Wound: Overall, stable. Denies increased drainage or pain but he states that surrounding his right medial ankle ulcer, noted some surrounding areas of redness and skin breakdown. Skin breakdown has improved but not completely resolved. No chills, fever or otherwise feeling of unwell. He states that he has been wearing his compression consistently, compression is new and has had it for 3 months. Objective Data Objective Data Vital Signs: Vital Signs Temp Pulse Resp BP Pulse Ox 97.0 F L 92 18 159/69 H 99 01/29/25 08:06 01/27/25 00:54 01/27/25 00:54 01/27/25 00:54 01/27/25 00:54 Body Mass Index (BMI) 31.4 Charges/Coding Procedures Integumentary 111xxx-113xx: 28072 [place] subq tissue 20 sq cm/< Physical Exam Const alert, oriented x3 and no apparent distress General Appearance: cooperative and comfortable HEENT normocephalic Head and Scalp: normal to inspection, normocephalic and atraumatic Eyes EOMs intact bilaterally Neck full ROM and supple General: normal visual inspection Resp normal respiratory effort Effort and Inspection: able to speak in complete sentences Extremity normal to inspection General Extremity: edema Skin Wounds: wounds noted size Size: See clinical note, bed granulating well, margins well defined, no odor, open and surrounding erythema Neuro oriented x3, CN's II-XII intact bilaterally, moves all extremities and no focal motor deficits Psych mental status grossly normal, thought process normal, cooperative and affect normal Debridement Note Debridement Note Wound debrided: Right medial ankle Type of Debridement: Excisional debridement Anesthesia Used: 5% Lidocaine Gel Depth: Down to and including healthy tissue and in the subcutaneous layer Percentage of wound debrided: 100 Instrument Used: 3mm curette Tissue Removed: Slough and devitalized tissue Severity: Fat Layer Exposed Amount of bleeding with debridement: Mild Bleeding Controlled with: Pressure Patient tolerated procedure: Patient tolerated procedure well Post-Debridement Measurements and Additional Note: Post-Debridement Measurements/Treatment - Nurse 1 - General Ulcer Assessment Start: 01/29/25 08:06 Freq: Status: Active Protocol: SHANTA Activity Type Activity Date Activity User E-sign Co-sign Detail Recorded Client Recorded Date Recorded By Document 01/29/25 08:06 FARRUKH [id number] 01/29/25 08:11 FARRUKH 01/29/25 08:06 - Today's Visit Information Type of service Follow-up Visit (Physician/[employer] ) Arrival Mode Ambulatory Patient Identification Verified (Name & Yes ) Height and Weight Body Mass Index (BMI) 31.4 BMI Classification Obese Vital Signs Temperature (97.8 F-99.1 F) 97.0 F L Temperature Source Temporal Pulse Location Monitor Pain Scale: 0-10 Numeric Is Patient Pain Free? Yes WC - Nurse 1 - General Ulcer Measurement Start: 01/29/25 08:06 Freq: Status: Active Protocol: Activity Type Activity Date Activity User E-sign Co-sign Detail Recorded Client Recorded Date Recorded By Document 01/29/25 08:06 KW [id number] 01/29/25 08:11 KW 01/29/25 08:06 Wound Center Nurse 1 #18 Right Medial Ankle -Current Size (cm) - Length 1.1 -Current Size (cm) - Width 0.5 -Current Size (cm) - Depth 0.2 -Total Square Cm 0.55 -Date of Last Picture (Recall this 01/29/25 field) -Exudate Amt Small -Exudate Type Serosanguineous -Wound Margin Distinct, Outline Attached -Granulation Amt Large (67-100%) -Granulation Quality [place] -Necrosis Amt Small (1-33%) -Necrotic Tissue Type Adherent Slough -Texture (Ara-wound Skin Appearance) Assessed -Moisture (Ara-wound Skin Appearance) Assessed,Dry/ Scaly -Color (Ara-wound Skin Appearance) Assessed -Temperature (Ara-wound Skin No Abnormality Appearance) (Pt Warm) -Tenderness on Palpation (Ara-wound No Skin Appearance) -Ulcer Cleansing Soap and Water -Anesthetic Used 5% Lidocaine Gel #10 Left Medial Ankle -Current Size (cm) - Length 3.5 -Current Size (cm) - Width 1.4 -Current Size (cm) - Depth 0.3 -Total Square Cm 4.90 -Date of Last Picture (Recall this 01/29/25 field) -Exudate Amt Small -Exudate Type Serosanguineous -Wound Margin Distinct, Outline Attached -Granulation Amt Small (1-33%) -Granulation Quality [place] -Necrosis Amt Small (1-33%) -Necrotic Tissue Type Adherent Slough -Texture (Ara-wound Skin Appearance) Assessed -Moisture (Ara-wound Skin Appearance) Assessed,Dry/ Scaly -Color (Ara-wound Skin Appearance) Assessed -Temperature (Ara-wound Skin No Abnormality Appearance) (Pt Warm) -Tenderness on Palpation (Ara-wound No Skin Appearance) -Ulcer Cleansing Soap and Water -Foul Odor after Cleansing No -Anesthetic Used 5% Lidocaine Gel Right Calf (cm) 38.3 Right Ankle (cm) 22.5 Left Calf (cm) 37.5 Left Ankle (cm) 23 WC - Nurse 2 - General Ulcer CM Notes Start: 01/29/25 08:06 Freq: Status: Active Protocol: Activity Type Activity Date Activity User E-sign Co-sign Detail Recorded Client Recorded Date Recorded By Document 01/29/25 08:25 [id number] 01/29/25 08:30 GM 01/29/25 08:25 Wound Center Nurse 2 #18 Right Medial Ankle -Time 08:25 -Correct Patient Yes -Correct Side, Site, Position Yes -Correct Procedure Yes -Procedure Performed Yes -Type of Procedure Debridement -Clinical Debridement Subcutaneous -Tissue Removed Subcutaneous -Post Debridement (cm) - Length 1.2 -Post Debridement (cm) - Width 0.6 -Post Debridement (cm) - Depth 0.1 -Total Square (Post) (cm) 0.72 -Area of Debridement (cm) - Length 1.2 -Area of Debridement (cm) - Width 0.6 -Total Square (Area) (cm) 0.72 -Tunneling No -Undermining/Tunneling No -Circular Undermining No -Wound/Ulcer Outcome Not Healed -Ulcer Cleansing Rinsed/ Irrigated with Saline -Foul Odor after Cleansing No -Bioengineered Tissue No -Bleeding Controlled with Pressure -Treatment Response Procedure Tolerated Well -Offloading No -Debridement - Subq, 1st 20sq cm Yes #10 Left Medial Ankle -Time 08:26 -Correct Patient Yes -Correct Side, Site, Position Yes -Correct Procedure Yes -Procedure Performed Yes -Type of Procedure Debridement -Clinical Debridement Subcutaneous -Tissue Removed Subcutaneous -Post Debridement (cm) - Length 3.3 -Post Debridement (cm) - Width 1.2 -Post Debridement (cm) - Depth 0.3 -Total Square (Post) (cm) 3.96 -Area of Debridement (cm) - Length 3.3 -Area of Debridement (cm) - Width 1.2 -Total Square (Area) (cm) 3.96 -Tunneling No -Undermining/Tunneling No -Circular Undermining No -Wound/Ulcer Outcome Not Healed -Ulcer Cleansing Rinsed/ Irrigated with Saline -Foul Odor after Cleansing No -Bioengineered Tissue No -Bleeding Controlled with Pressure -Treatment Response Procedure Tolerated Well -Offloading No -Debridement - Subq, 1st 20sq cm No Pain Scale: 0-10 Numeric Is Patient Pain Free? Yes WC - Nurse 3 - General Ulcer D/C NN Start: 01/29/25 08:06 Freq: Status: Active Protocol: Activity Type Activity Date Activity User E-sign Co-sign Detail Recorded Client Recorded Date Recorded By Document 01/29/25 08:42 RB [id number] 01/29/25 08:44 RB 01/29/25 08:42 Wound Care Center Nurse 3 #18 Right Medial Ankle -Ulcer Cleansing Rinsed/ Irrigated with Saline -Other Dressing ABD -Primary Dressing Covered/Secured with Secured with Tape #10 Left Medial Ankle -Ulcer Cleansing Rinsed/ Irrigated with Saline BLE -Stockings Yes Treatment Response Procedure Tolerated Well Pain Scale: 0-10 Numeric Is Patient Pain Free? Yes WC - Visit Discharge Discharge Condition Stable Ambulatory Status Ambulatory Transportation Private Auto Medication Reconcilliation completed & No provided to patient/care provider Clinical Summary of Care Provided Yes Additional Wound Wound debrided: Left medial ankle Type of Debridement: Excisional debridement Anesthesia Used: 5% Lidocaine Gel Depth: Down to and including healthy tissue and in the subcutaneous layer Percentage of wound debrided: 100 Instrument Used: 5mm curette Tissue Removed: Slough and devitalized tissue Severity: Fat Layer Exposed Amount of bleeding with debridement: Mild Bleeding Controlled with: Pressure Patient tolerated procedure: Patient tolerated procedure well Assessment/Plan Assessment/Plan (1) Ulcer of left lower extremity with fat layer exposed: CODE(S): L97.922 - Non-pressure chronic ulcer of unspecified part of left lower leg with fat layer exposed (2) PVD (peripheral vascular disease): CODE(S): I73.9 - Peripheral vascular disease, unspecified (3) Chronic venous insufficiency: CODE(S): I87.2 - Venous insufficiency (chronic) (peripheral) (4) Delayed wound healing: CODE(S): T14.8XXD - Other injury of unspecified body region, subsequent encounter (5) Ulcer of right lower extremity with fat layer exposed: CODE(S): L97.912 - Non-pressure chronic ulcer of unspecified part of right lower leg with fat layer exposed PLAN: Plan Debridement done as documented above, procedure was well-tolerated. Ulcers are stable. Concern for right ARA ulcer erythema and breakdown. As above, he states that the breakdown appears to have healed but there is still some erythema. Mild warmth appreciated. Will treat for cellulitis, prescription for Augmentin sent. Continue compression and monitor closely. Continue 30 minutes Dakin's soak daily. Apply Bactroban, Aquacel extra to ulcers, Adaptic to surrounding skin and cover with KerraMax care. Continue use of compression stockings, leg elevation and exercise. Increased protein intake, protein supplements, zinc and vitamin D. Optimal diabetes control discussed, last A1C was 5.9. His questions were answered, and he was advised to call with any further questions or concerns. Follow-up in 2 weeks or sooner if needed. This note was generated with [employer] dictation software. It may contain incorrect words, spelling, and punctuation that were not noted in checking the note before signing.
--- NOTE | 2025-01-30 10:34 | WC ---
PHOTO 01/29/25 RIGHT [facility]
--- NOTE | 2025-01-30 10:35 | WC ---
PHOTO 01/29/25 LEFT MED ANKLE
[2025-02-12 08:21] VITALS: BP 167/74; PULSE 96; RESP 18; TEMP 35.9; BMI 31.4
--- NOTE | 2025-02-12 09:59 | PCM.WC.PN ---
History of Present Illness Date of Service: 02/12/25 Chief Complaint: Bilateral lower extremity ulcers History of Wound: This is a 54-year-old male presents to wound healing center with a long-standing history of chronic venous insufficiency, chronic venous hypertension, lower extremity edema, lower extremity pain, and chronic left lower extremity ulcer. The patient has previously undergone endovenous laser ablation of the left and right great saphenous vein, the small saphenous vein, the left accessory saphenous vein, and an incompetent left calf quality control assessor vein located 15 cm proximal to the left medial malleolus. He is currently wearing graduated compression stockings which are documented to be 20-30 mmHg compression and these are thigh high. He reports great compliance with use. He is also had previous arterial work-up with no intervention recommended by letter, his vascular surgeon. He denies taking nutritional supplementation. He saw dermatology and had a biopsy of the ulcer site. He also was previously treated by infectious disease for various contaminations and infections. He is not antibiotics at this time nor does he have any redness or odor coming from the wound. He denies fever, chill, nausea, vomiting, loss of appetite. 05/18/22: Mr. Jeroniom presents with a new right lower extremity ulceration. He states that this has been present for months and he has been trying to manage it at home without any significant improvement. Opened up months ago, no known precipitating factor. Has been applying wound dressings without any significant improvement. He reports increased drainage. Denies significant pain. No chills, fever or feeling of unwell. 10/16/24: Mr. Jeronimo presents with a new right lower extremity ulceration. He states that it started out as a very small area that was slipping and then in the last week, became rather extensive. He also reports a foul smell. Has noted increase lower extremity edema. He states that he has been wearing his compression (20 to 30 mmHg) consistently. No chills, fever or otherwise feeling of unwell. Also has a new area on his left lower medial leg. He states that he has been applying same 1 products to these new areas. Progress of Wound: No new concerns reported at this time. He states that he does his dressing changes daily, when he can. Yet to hear from vascular regarding any planned procedure. Last visit was a month ago. Objective Data Objective Data Vital Signs: Vital Signs Temp Pulse Resp BP Pulse Ox 96.6 F L 96 18 167/74 H 99 02/12/25 08:21 02/12/25 08:21 02/12/25 08:21 02/12/25 08:21 01/27/25 00:54 Body Mass Index (BMI) 31.4 Charges/Coding Procedures Integumentary 111xxx-113xx: 22627 Lakeisha subq tissue 20 sq cm/< Physical Exam Const alert, oriented x3 and no apparent distress General Appearance: cooperative and comfortable HEENT normocephalic Head and Scalp: normal to inspection, normocephalic and atraumatic Eyes EOMs intact bilaterally Neck full ROM and supple General: normal visual inspection Resp normal respiratory effort Effort and Inspection: able to speak in complete sentences Extremity normal to inspection General Extremity: edema Skin General Skin Exam: dry skin Wounds: wounds noted size Size: See clinical note, bed granulating well, margins well defined, no odor and open Neuro oriented x3, CN's II-XII intact bilaterally, moves all extremities and no focal motor deficits Psych mental status grossly normal, thought process normal, cooperative and affect normal Debridement Note Debridement Note Wound debrided: Right lower extremity/medial ankle Type of Debridement: Excisional debridement Anesthesia Used: 5% Lidocaine Gel Depth: Down to and including healthy tissue Percentage of wound debrided: 100 Instrument Used: 3mm curette Tissue Removed: Slough and devitalized tissue Post-Debridement Measurements and Additional Note: Post-Debridement Measurements/Treatment WC - Nurse 1 - General Ulcer Assessment Start: 01/29/25 08:06 Freq: Status: Active Protocol: SHANTA Activity Type Activity Date Activity User E-sign Co-sign Detail Recorded Client Recorded Date Recorded By Document 01/29/25 08:06 KW [id number] 01/29/25 08:11 KW Document 02/12/25 08:21 RB [id number] 02/12/25 08:25 RB 01/29/25 02/12/25 08:06 08:21 - Today's Visit Information Type of service Follow-up Visit Follow-up Visit (Physician/ESTATE MANAGER (Physician/ESTATE MANAGER ) ) Arrival Mode Ambulatory Ambulatory Transfer Assistance None Patient Identification Verified (Name & Yes Yes ) Patient Requires Transmission-Based No Precautions Height and Weight Body Mass Index (BMI) 31.4 31.4 BMI Classification Obese Obese Vital Signs Temperature (97.8 F-99.1 F) 97.0 F L 96.6 F L Temperature Source Temporal Temporal Pulse Rate (60-100) 96 Pulse Location Monitor Monitor Respiratory Rate (12-18) 18 Respiratory rate source Observation Blood Pressure (90/60-120/80) 167/74 H Blood Pressure Mean (mm Hg) 105 Source Monitor Position Semi-Fowlers Blood Pressure Location Left Arm History Since Last Visit- (Skip if this is Patient's initial visit) Have you changed medications since your No last visit? Any new allergies or adverse reactions No Had a fall/change in ADL's that may No increase risk of falls Signs or symptoms of abuse and/or No neglect since last visit Have you been in the hospital since your No last visit? Has dressing in place as prescribed Yes Has compression in place as prescribed Yes Has offloadiing in place as prescribed N/A Experienced any changes in pain level or No management Pain Scale: 0-10 Numeric Is Patient Pain Free? Yes Yes WC - Nurse 1 - General Ulcer Measurement Start: 01/29/25 08:06 Freq: Status: Active Protocol: Activity Type Activity Date Activity User E-sign Co-sign Detail Recorded Client Recorded Date Recorded By Document 01/29/25 08:06 KW [id number] 01/29/25 08:11 KW Document 02/12/25 08:21 RB [id number] 02/12/25 08:25 RB 01/29/25 02/12/25 08:06 08:21 Wound Center Nurse 1 #18 Right Medial Ankle -Combined with other wound No -Current Size (cm) - Length 1.1 0.3 -Current Size (cm) - Width 0.5 0.2 -Current Size (cm) - Depth 0.2 0.1 -Total Square Cm 0.55 0.06 -Date of Last Picture (Recall this 01/29/25 field) -Tunneling No -Undermining/Tunneling No -Circular Undermining No -Exudate Amt Small Medium -Exudate Type Serosanguineous Serosanguineous -Wound Margin Distinct, Thickened Outline Attached -Granulation Amt Large (67-100%) Medium (34-66%) -Granulation Quality Hospers Hospers -Slough/Fibrin Yes -Necrosis Amt Small (1-33%) Medium (34-66%) -Necrotic Tissue Type Adherent Slough Adherent Slough -Structure Exposed N/A -Texture (Ara-wound Skin Appearance) Assessed Callus -Moisture (Ara-wound Skin Appearance) Assessed,Dry/ Dry/Scaly Scaly -Color (Ara-wound Skin Appearance) Assessed Assessed -Temperature (Ara-wound Skin No Abnormality No Abnormality Appearance) (Pt Warm) (Pt Warm) -Tenderness on Palpation (Ara-wound No No Skin Appearance) -Ulcer Cleansing Soap and Water Wound Cleanser -Foul Odor after Cleansing No -Anesthetic Used 5% Lidocaine 5% Lidocaine Gel Gel #10 Left Medial Ankle -Combined with other wound No -Current Size (cm) - Length 3.5 3 -Current Size (cm) - Width 1.4 0.9 -Current Size (cm) - Depth 0.3 0.2 -Total Square Cm 4.90 2.7 -Date of Last Picture (Recall this 01/29/25 field) -Tunneling No -Undermining/Tunneling No -Circular Undermining No -Exudate Amt Small Medium -Exudate Type Serosanguineous Serosanguineous -Wound Margin Distinct, Outline Attached -Granulation Amt Small (1-33%) Medium (34-66%) -Granulation Quality Hospers Hospers -Slough/Fibrin Yes -Necrosis Amt Small (1-33%) Medium (34-66%) -Necrotic Tissue Type Adherent Slough Adherent Slough -Structure Exposed N/A -Texture (Ara-wound Skin Appearance) Assessed Assessed, Scarring -Moisture (Ara-wound Skin Appearance) Assessed,Dry/ Assessed Scaly -Color (Ara-wound Skin Appearance) Assessed Assessed -Temperature (Ara-wound Skin No Abnormality No Abnormality Appearance) (Pt Warm) (Pt Warm) -Tenderness on Palpation (Ara-wound No No Skin Appearance) -Ulcer Cleansing Soap and Water Wound Cleanser -Foul Odor after Cleansing No No -Anesthetic Used 5% Lidocaine 5% Lidocaine Gel Gel Lower Limb Edema Present Yes Right Calf (cm) 38.3 37 Right Ankle (cm) 22.5 21.7 Left Calf (cm) 37.5 36.5 Left Ankle (cm) 23 22.5 WC - Nurse 2 - General Ulcer CM Notes Start: 01/29/25 08:06 Freq: Status: Active Protocol: Activity Type Activity Date Activity User E-sign Co-sign Detail Recorded Client Recorded Date Recorded By Document 01/29/25 08:25 [id number] 01/29/25 08:30 Document 02/12/25 08:31 [id number] 02/12/25 08:40 GM 01/29/25 02/12/25 08:25 08:31 Wound Center Nurse 2 #18 Right Medial Ankle -Time 08: 08:32 -Correct Patient Yes Yes -Correct Side, Site, Position Yes Yes -Correct Procedure Yes Yes -Procedure Performed Yes Yes -Type of Procedure Debridement Debridement -Clinical Debridement Subcutaneous Subcutaneous -Tissue Removed Subcutaneous Subcutaneous -Post Debridement (cm) - Length 1.2 1.3 -Post Debridement (cm) - Width 0.6 0.6 -Post Debridement (cm) - Depth 0.1 0.1 -Total Square (Post) (cm) 0.72 0.78 -Area of Debridement (cm) - Length 1.2 1.3 -Area of Debridement (cm) - Width 0.6 0.6 -Total Square (Area) (cm) 0.72 0.78 -Tunneling No No -Undermining/Tunneling No No -Circular Undermining No No -Wound/Ulcer Outcome Not Healed Not Healed -Ulcer Cleansing Rinsed/ Rinsed/ Irrigated with Irrigated with Saline Saline -Foul Odor after Cleansing No No -Bioengineered Tissue No No -Bleeding Controlled with Pressure Pressure -Treatment Response Procedure Procedure Tolerated Well Tolerated Well -Offloading No -Debridement - Subq, 1st 20sq cm Yes No #10 Left Medial Ankle -Time 08: 08:33 -Correct Patient Yes Yes -Correct Side, Site, Position Yes Yes -Correct Procedure Yes Yes -Procedure Performed Yes Yes -Type of Procedure Debridement Debridement -Clinical Debridement Subcutaneous Subcutaneous -Tissue Removed Subcutaneous Subcutaneous -Post Debridement (cm) - Length 3.3 3.0 -Post Debridement (cm) - Width 1.2 1.2 -Post Debridement (cm) - Depth 0.3 0.3 -Total Square (Post) (cm) 3.96 3.60 -Area of Debridement (cm) - Length 3.3 3.0 -Area of Debridement (cm) - Width 1.2 1.2 -Total Square (Area) (cm) 3.96 3.60 -Tunneling No No -Undermining/Tunneling No No -Circular Undermining No No -Wound/Ulcer Outcome Not Healed Not Healed -Ulcer Cleansing Rinsed/ Rinsed/ Irrigated with Irrigated with Saline Saline -Foul Odor after Cleansing No No -Bioengineered Tissue No No -Bleeding Controlled with Pressure Pressure -Treatment Response Procedure Procedure Tolerated Well Tolerated Well -Offloading No No -Debridement - Subq, 1st 20sq cm No Yes Pain Scale: 0-10 Numeric Is Patient Pain Free? Yes Yes - Nurse 3 - General Ulcer D/C NN Start: 01/29/25 08:06 Freq: Status: Active Protocol: Activity Type Activity Date Activity User E-sign Co-sign Detail Recorded Client Recorded Date Recorded By Document 01/29/25 08:42 RB [id number] 01/29/25 08:44 RB Document 02/12/25 08:46 RB [id number] 02/12/25 08:47 RB 01/29/25 02/12/25 08:42 08:46 Wound Care Center Nurse 3 #18 Right Medial Ankle -Ulcer Cleansing Rinsed/ Irrigated with Saline -Other Dressing ABD ABD -Primary Dressing Covered/Secured with Secured with Secured with Tape Tape #10 Left Medial Ankle -Ulcer Cleansing Rinsed/ Irrigated with Saline -Other Dressing ABD -Primary Dressing Covered/Secured with Secured with Tape -Wound Comment(s) pt jolynn apply aquace extra and keramax at home after shower BLE -Stockings Yes Yes: pt own Treatment Response Procedure Procedure Tolerated Well Tolerated Well Pain Scale: 0-10 Numeric Is Patient Pain Free? Yes Yes - Visit Discharge Discharge Condition Stable Stable Ambulatory Status Ambulatory Ambulatory Transportation Private Auto Private Auto Medication Reconcilliation completed & No No provided to patient/care provider Clinical Summary of Care Provided Yes Yes Additional Wound Wound debrided: Left lower extremity/medial ankle Type of Debridement: Excisional debridement Anesthesia Used: 5% Lidocaine Gel Depth: in the subcutaneous layer Percentage of wound debrided: 100 Instrument Used: 5mm curette Tissue Removed: Slough and devitalized tissue Severity: Fat Layer Exposed Amount of bleeding with debridement: Mild Bleeding Controlled with: Pressure Patient tolerated procedure: Patient tolerated procedure well Assessment/Plan Assessment/Plan (1) Ulcer of left lower extremity with fat layer exposed: CODE(S): L97.922 - Non-pressure chronic ulcer of unspecified part of left lower leg with fat layer exposed (2) PVD (peripheral vascular disease): CODE(S): I73.9 - Peripheral vascular disease, unspecified (3) Chronic venous insufficiency: CODE(S): I87.2 - Venous insufficiency (chronic) (peripheral) (4) Delayed wound healing: CODE(S): T14.8XXD - Other injury of unspecified body region, subsequent encounter (5) Ulcer of right lower extremity with fat layer exposed: CODE(S): L97.912 - Non-pressure chronic ulcer of unspecified part of right lower leg with fat layer exposed PLAN: Plan Debridement done as documented above, procedure was well-tolerated. Ulcers are stable. ARA ulcer erythema reported at the last visit has resolved. Has completed antibiotics. Not doing dressing changes daily as recommended. Also, significant surrounding dry skin on exam. Continue 30 minutes Dakin's soak daily. Apply Bactroban, Aquacel extra to ulcers, Adaptic to surrounding skin and cover with KerraMax care. Continue use of compression stockings, leg elevation and exercise. Increased protein intake, protein supplements, zinc and vitamin D. Optimal diabetes control discussed, last A1C was 5.9. Strongly advised that he comply with instructions regarding dressing changes, he voiced understanding. Also advised that he moisturize his skin consistently. Consider reaching out to vascular office regarding planned procedure timing. His questions were answered, and he was advised to call with any further questions or concerns. Follow-up in 2 weeks or sooner if needed. This note was generated with [employer] dictation software. It may contain incorrect words, spelling, and punctuation that were not noted in checking the note before signing.
== END 2025-02-25 23:59 | disposition home or self-care (01) ==
LOC: WC 08:00
PROVIDERS: PCP Family Medicine; Referring Provider Family Medicine; Visit Provider Internal Medicine
DX: I87.312 Chronic venous hypertension (idiopathic) with ulcer of left lower extremity (principal); L97.312 Non-pressure chronic ulcer of right ankle with fat layer exposed; L97.322 Non-pressure chronic ulcer of left ankle with fat layer exposed; I73.9 Peripheral vascular disease, unspecified; I87.2 Venous insufficiency (chronic) (peripheral); R60.0 Localized edema
CPT/HCPCS: 11042

== ENCOUNTER 2025-03-12 08:00 | Outpatient (RCR) | payer OTHER, SELFPAY ==
[2025-02-26 00:39] VITALS: BP 167/74; PULSE 96; RESP 18; TEMP 35.9; O2SAT 99; BMI 31.4
[2025-02-26 08:08] VITALS: BP 148/78; PULSE 89; RESP 18; TEMP 36; BMI 31.4
--- NOTE | 2025-02-26 09:30 | PCM.WC.PN ---
History of Present Illness Date of Service: 02/26/25 Chief Complaint: Bilateral lower extremity ulcers History of Wound: This is a 54-year-old male presents to wound healing center with a long-standing history of chronic venous insufficiency, chronic venous hypertension, lower extremity edema, lower extremity pain, and chronic left lower extremity ulcer. The patient has previously undergone endovenous laser ablation of the left and right great saphenous vein, the small saphenous vein, the left accessory saphenous vein, and an incompetent left calf transit manager vein located 15 cm proximal to the left medial malleolus. He is currently wearing graduated compression stockings which are documented to be 20-30 mmHg compression and these are thigh high. He reports great compliance with use. He is also had previous arterial work-up with no intervention recommended by letter, his vascular surgeon. He denies taking nutritional supplementation. He saw dermatology and had a biopsy of the ulcer site. He also was previously treated by infectious disease for various contaminations and infections. He is not antibiotics at this time nor does he have any redness or odor coming from the wound. He denies fever, chill, nausea, vomiting, loss of appetite. 05/18/22: Mr. Jeronimo presents with a new right lower extremity ulceration. He states that this has been present for months and he has been trying to manage it at home without any significant improvement. Opened up months ago, no known precipitating factor. Has been applying wound dressings without any significant improvement. He reports increased drainage. Denies significant pain. No chills, fever or feeling of unwell. 10/16/24: Mr. Jeronimo presents with a new right lower extremity ulceration. He states that it started out as a very small area that was slipping and then in the last week, became rather extensive. He also reports a foul smell. Has noted increase lower extremity edema. He states that he has been wearing his compression (20 to 30 mmHg) consistently. No chills, fever or otherwise feeling of unwell. Also has a new area on his left lower medial leg. He states that he has been applying same 1 products to these new areas. Progress of Wound: He reports increased drainage from his left lower extremity ulcer. He has been standing a lot more and was out mushroom hunting as well. He states that he has been wearing his compression consistently. Increased lower extremity edema appreciated. Scheduled for bilateral lower extremity from sclerotherapy on the 25 of March. Objective Data Objective Data Vital Signs: Vital Signs Temp Pulse Resp BP Pulse Ox 96.8 F L 89 18 148/78 H 99 02/26/25 08:08 02/26/25 08:08 02/26/25 08:08 02/26/25 08:08 02/26/25 00:39 Body Mass Index (BMI) 31.4 Charges/Coding Procedures Integumentary 111xxx-113xx: [id number] Lakeisha subq tissue 20 sq cm/< Physical Exam Const alert, oriented x3 and no apparent distress General Appearance: cooperative and comfortable HEENT normocephalic Head and Scalp: normal to inspection, normocephalic and atraumatic Eyes EOMs intact bilaterally Neck full ROM and supple General: normal visual inspection Resp normal respiratory effort Effort and Inspection: able to speak in complete sentences Extremity normal to inspection General Extremity: edema Skin General Skin Exam: dry skin Wounds: wounds noted size Size: See clinical note, bed granulating well, margins well defined, no odor and open Neuro oriented x3, CN's II-XII intact bilaterally, moves all extremities and no focal motor deficits Psych mental status grossly normal, thought process normal, cooperative and affect normal Debridement Note Debridement Note Wound debrided: Right medial ankle/lower extremity Type of Debridement: Excisional debridement Anesthesia Used: 5% Lidocaine Gel Depth: in the subcutaneous layer Percentage of wound debrided: 100 Instrument Used: 3mm curette Tissue Removed: Slough and devitalized tissue Severity: Fat Layer Exposed Amount of bleeding with debridement: Mild Bleeding Controlled with: Pressure Patient tolerated procedure: Patient tolerated procedure well Post-Debridement Measurements and Additional Note: Post-Debridement Measurements/Treatment - Nurse 1 - General Ulcer Assessment Start: 02/26/25 08:08 Freq: Status: Active Protocol: [email or web address] Activity Type Activity Date Activity User E-sign Co-sign Detail Recorded Client Recorded Date Recorded By Document 02/26/25 08:08 TRIPP [id number] 02/26/25 08:11 TRIPP 02/26/25 08:08 - Today's Visit Information Type of service Follow-up Visit (Physician/TEST [facility]LE [facility]LLER ) Arrival Mode Ambulatory Transfer Assistance None Patient Identification Verified (Name & Yes ) Patient Requires Transmission-Based No Precautions Height and Weight Body Mass Index (BMI) 31.4 BMI Classification Obese Vital Signs Temperature (97.8 F-99.1 F) 96.8 F L Temperature Source Temporal Pulse Rate (60-100) 89 Pulse Location Monitor Respiratory Rate (12-18) 18 Respiratory rate source Observation Blood Pressure (90/60-120/80) 148/78 H Blood Pressure Mean (mm Hg) 101 Source Monitor Position Semi-Fowlers Blood Pressure Location Left Arm History Since Last Visit- (Skip if this is Patient's initial visit) Have you changed medications since your No last visit? Any new allergies or adverse reactions No Had a fall/change in ADL's that may No increase risk of falls Signs or symptoms of abuse and/or No neglect since last visit Have you been in the hospital since your No last visit? Has dressing in place as prescribed Yes Has compression in place as prescribed Yes Has offloadiing in place as prescribed N/A Experienced any changes in pain level or No management Left Footwear Regular Shoe Right Footwear Regular Shoe Pain Scale: 0-10 Numeric Is Patient Pain Free? Yes WC - Nurse 1 - General Ulcer Measurement Start: 02/26/25 08:08 Freq: Status: Active Protocol: Activity Type Activity Date Activity User E-sign Co-sign Detail Recorded Client Recorded Date Recorded By Document 02/26/25 08:08 [email or web address] [id number] 02/26/25 08:11 RB 02/26/25 08:08 Wound Center Nurse 1 #18 Right Medial Ankle -Combined with other wound No -Current Size (cm) - Length 0.6 -Current Size (cm) - Width 0.3 -Current Size (cm) - Depth 0.2 -Total Square Cm 0.18 -Tunneling No -Undermining/Tunneling No -Circular Undermining No -Exudate Amt Medium -Exudate Type Serosanguineous -Wound Margin Thickened & Rolled Under -Granulation Amt Medium (34-66%) -Granulation Quality [place] -Slough/Fibrin Yes -Necrosis Amt Medium (34-66%) -Necrotic Tissue Type Adherent Slough -Structure Exposed N/A -Texture (Ara-wound Skin Appearance) Assessed, Scarring -Moisture (Ara-wound Skin Appearance) Assessed,Dry/ Scaly -Color (Ara-wound Skin Appearance) Assessed -Temperature (Ara-wound Skin No Abnormality Appearance) (Pt Warm) -Tenderness on Palpation (Ara-wound No Skin Appearance) -Ulcer Cleansing Wound Cleanser -Foul Odor after Cleansing No -Anesthetic Used 5% Lidocaine Gel #10 Left Medial Ankle -Combined with other wound No -Current Size (cm) - Length 3 -Current Size (cm) - Width 1.4 -Current Size (cm) - Depth 0.4 -Total Square Cm 4.2 -Tunneling No -Undermining/Tunneling No -Circular Undermining No -Exudate Amt Medium -Exudate Type Serosanguineous -Wound Margin Distinct, Outline Attached -Granulation Amt Medium (34-66%) -Granulation Quality [place] -Slough/Fibrin Yes -Necrosis Amt Medium (34-66%) -Necrotic Tissue Type Adherent Slough -Structure Exposed N/A -Texture (Ara-wound Skin Appearance) Assessed, Scarring -Moisture (Ara-wound Skin Appearance) Assessed,Dry/ Scaly -Color (Ara-wound Skin Appearance) Assessed -Temperature (Ara-wound Skin No Abnormality Appearance) (Pt Warm) -Tenderness on Palpation (Ara-wound No Skin Appearance) -Ulcer Cleansing Wound Cleanser -Foul Odor after Cleansing No -Anesthetic Used 5% Lidocaine Gel Lower Limb Edema Present Yes Right Calf (cm) 37.2 Right Ankle (cm) 23 Left Calf (cm) 37.2 Left Ankle (cm) 23.5 WC - Nurse 2 - General Ulcer CM Notes Start: 02/26/25 08:08 Freq: Status: Active Protocol: Activity Type Activity Date Activity User E-sign Co-sign Detail Recorded Client Recorded Date Recorded By Document 02/26/25 08:18 [id number] 02/26/25 08:30 GM 02/26/25 08:18 Wound Center Nurse 2 #18 Right Medial Ankle -Time 08:19 -Correct Patient Yes -Correct Side, Site, Position Yes -Correct Procedure Yes -Procedure Performed Yes -Type of Procedure Debridement -Clinical Debridement Subcutaneous -Tissue Removed Subcutaneous -Post Debridement (cm) - Length 1.2 -Post Debridement (cm) - Width 0.5 -Post Debridement (cm) - Depth 0.1 -Total Square (Post) (cm) 0.60 -Area of Debridement (cm) - Length 1.2 -Area of Debridement (cm) - Width 0.5 -Total Square (Area) (cm) 0.60 -Tunneling No -Undermining/Tunneling No -Circular Undermining No -Wound/Ulcer Outcome Not Healed -Ulcer Cleansing Rinsed/ Irrigated with Saline -Foul Odor after Cleansing No -Bioengineered Tissue No -Bleeding Controlled with Pressure -Treatment Response Procedure Tolerated Well -Offloading No -Debridement - Subq, 1st 20sq cm No #10 Left Medial Ankle -Time 08:19 -Correct Patient Yes -Correct Side, Site, Position Yes -Correct Procedure Yes -Procedure Performed Yes -Type of Procedure Debridement -Clinical Debridement Subcutaneous -Tissue Removed Subcutaneous -Post Debridement (cm) - Length 3.2 -Post Debridement (cm) - Width 1.3 -Post Debridement (cm) - Depth 0.3 -Total Square (Post) (cm) 4.16 -Area of Debridement (cm) - Length 3.2 -Area of Debridement (cm) - Width 1.3 -Total Square (Area) (cm) 4.16 -Tunneling No -Undermining/Tunneling No -Circular Undermining No -Wound/Ulcer Outcome Not Healed -Ulcer Cleansing Rinsed/ Irrigated with Saline -Foul Odor after Cleansing No -Bioengineered Tissue No -Bleeding Controlled with Pressure -Treatment Response Procedure Tolerated Well -Offloading No -Debridement - Subq, 1st 20sq cm Yes Pain Scale: 0-10 Numeric Is Patient Pain Free? Yes - Nurse 3 - General Ulcer D/C NN Start: 02/26/25 08:08 Freq: Status: Active Protocol: Activity Type Activity Date Activity User E-sign Co-sign Detail Recorded Client Recorded Date Recorded By Document 02/26/25 08:39 RB [id number] 02/26/25 08:41 RB 02/26/25 08:39 Wound Care Center Nurse 3 #18 Right Medial Ankle -Other Dressing abd -Primary Dressing Covered/Secured with Secured with Tape #10 Left Medial Ankle -Other Dressing abd -Primary Dressing Covered/Secured with Secured with Tape BLE -Stockings Yes: pt own stockings Treatment Response Procedure Tolerated Well Pain Scale: 0-10 Numeric Is Patient Pain Free? Yes WC - Visit Discharge Discharge Condition Stable Ambulatory Status Ambulatory Transportation Private Auto Medication Reconcilliation completed & No provided to patient/care provider Clinical Summary of Care Provided Yes Notes: pt will dress wound as directed aquacel extra, adaptic, keramax kerlix at home after shower Additional Wound Wound debrided: Left medial ankle/lower extremity Type of Debridement: Excisional debridement Anesthesia Used: 5% Lidocaine Gel Depth: Down to and including healthy tissue and in the subcutaneous layer Percentage of wound debrided: 100 Instrument Used: 5mm curette Tissue Removed: Slough and devitalized tissue Severity: Fat Layer Exposed Amount of bleeding with debridement: Mild Bleeding Controlled with: Pressure Patient tolerated procedure: Patient did not tolerate procedure well Assessment/Plan Assessment/Plan (1) Ulcer of left lower extremity with fat layer exposed: CODE(S): L97.922 - Non-pressure chronic ulcer of unspecified part of left lower leg with fat layer exposed (2) PVD (peripheral vascular disease): CODE(S): I73.9 - Peripheral vascular disease, unspecified (3) Chronic venous insufficiency: CODE(S): I87.2 - Venous insufficiency (chronic) (peripheral) (4) Delayed wound healing: CODE(S): T14.8XXD - Other injury of unspecified body region, subsequent encounter (5) Ulcer of right lower extremity with fat layer exposed: CODE(S): L97.912 - Non-pressure chronic ulcer of unspecified part of right lower leg with fat layer exposed PLAN: Plan Debridement done as documented above, procedure was well-tolerated. Right lower extremity with some improvement, left with mild worsening. Increased periwound maceration and increased bilateral lower extremity edema appreciated. As above, has been standing a lot over the last couple of weeks. No significant pain, foul smell, chills or fever reported. Due to increased drainage and periwound maceration, cultures taken, will review. Increased drainage may be due to increased lower extremity edema from increased standing. For now, continue 30 minutes Dakin's soak daily. Apply Bactroban, Aquacel extra to ulcers, Adaptic to surrounding skin and cover with KerraMax care. Consistent use of compression, leg elevation and exercise as tolerated strongly recommended, he voiced understanding. Now scheduled for bilateral lower extremity foam sclerotherapy on 25 March. Increased protein intake, protein supplements, zinc and vitamin D. Optimal diabetes control discussed, last A1C was 5.9. Also advised that he moisturize his skin consistently. His questions were answered, and he was advised to call with any further questions or concerns. Follow-up in 2 weeks or sooner if needed. This note was generated with [employer] dictation software. It may contain incorrect words, spelling, and punctuation that were not noted in checking the note before signing.
[2025-03-12 08:03] VITALS: BP 160/90; PULSE 92; RESP 16; TEMP 36.4; BMI 31.4
--- NOTE | 2025-03-12 09:43 | PCM.WC.PN ---
History of Present Illness Date of Service: 03/12/25 Chief Complaint: Bilateral lower extremity ulcers History of Wound: This is a 54-year-old male presents to wound healing center with a long-standing history of chronic venous insufficiency, chronic venous hypertension, lower extremity edema, lower extremity pain, and chronic left lower extremity ulcer. The patient has previously undergone endovenous laser ablation of the left and right great saphenous vein, the small saphenous vein, the left accessory saphenous vein, and an incompetent left calf head of human resources vein located 15 cm proximal to the left medial malleolus. He is currently wearing graduated compression stockings which are documented to be 20-30 mmHg compression and these are thigh high. He reports great compliance with use. He is also had previous arterial work-up with no intervention recommended by letter, his vascular surgeon. He denies taking nutritional supplementation. He saw dermatology and had a biopsy of the ulcer site. He also was previously treated by infectious disease for various contaminations and infections. He is not antibiotics at this time nor does he have any redness or odor coming from the wound. He denies fever, chill, nausea, vomiting, loss of appetite. 05/18/22: Mr. Jeronimo presents with a new right lower extremity ulceration. He states that this has been present for months and he has been trying to manage it at home without any significant improvement. Opened up months ago, no known precipitating factor. Has been applying wound dressings without any significant improvement. He reports increased drainage. Denies significant pain. No chills, fever or feeling of unwell. 10/16/24: Mr. Jeronimo presents with a new right lower extremity ulceration. He states that it started out as a very small area that was slipping and then in the last week, became rather extensive. He also reports a foul smell. Has noted increase lower extremity edema. He states that he has been wearing his compression (20 to 30 mmHg) consistently. No chills, fever or otherwise feeling of unwell. Also has a new area on his left lower medial leg. He states that he has been applying same 1 products to these new areas. Progress of Wound: No new concerns reported at this time. Drainage and periwound maceration have resolved. Denies any concerns since his last visit. Not doing daily dressing changes as recommended. Objective Data Objective Data Vital Signs: Vital Signs Temp Pulse Resp BP Pulse Ox O2 Del Method 97.6 F L 92 16 160/90 H 99 Room Air 03/12/25 08:03 03/12/25 08:03 03/12/25 08:03 03/12/25 08:03 02/26/25 00:39 03/12/25 08:03 Oxygen Delivery Method Room Air Body Mass Index (BMI) 31.4 Lab / Micro Data Micro: Microbiology 02/26/25 08:27 Wound - Left Foot Gram Stain - Final 02/26/25 08:27 Wound - Left Foot Wound Culture - Final Serratia marcescens Corynebacterium striatum Staphylococcus epidermidis 02/26/25 08:27 Wound - Left Foot Anaerobic Culture - Final Anaerobic cocci Charges/Coding Procedures Integumentary [id number]: [id number] Lakeisha subq tissue 20 sq cm/< Physical Exam Const alert, oriented x3 and no apparent distress General Appearance: cooperative and comfortable HEENT normocephalic Head and Scalp: normal to inspection, normocephalic and atraumatic Eyes EOMs intact bilaterally Neck full ROM and supple General: normal visual inspection Resp normal respiratory effort Effort and Inspection: able to speak in complete sentences Extremity normal to inspection General Extremity: edema Skin General Skin Exam: dry skin Wounds: wounds noted size Size: See clinical note, bed granulating well, margins well defined, no odor and open Neuro oriented x3, CN's II-XII intact bilaterally, moves all extremities and no focal motor deficits Psych mental status grossly normal, thought process normal, cooperative and affect normal Debridement Note Debridement Note Wound debrided: Right lower extremity (medial ankle) Type of Debridement: Excisional debridement Anesthesia Used: 5% Lidocaine Gel Depth: Down to and including healthy tissue and in the subcutaneous layer Percentage of wound debrided: 100 Instrument Used: 3mm curette Tissue Removed: Slough and devitalized tissue Severity: Fat Layer Exposed Amount of bleeding with debridement: Mild Bleeding Controlled with: Pressure Patient tolerated procedure: Patient tolerated procedure well Post-Debridement Measurements and Additional Note: Post-Debridement Measurements/Treatment WC - Nurse 1 - General Ulcer Assessment Start: 02/26/25 08:08 Freq: Status: Active Protocol: SHANTA Activity Type Activity Date Activity User E-sign Co-sign Detail Recorded Client Recorded Date Recorded By Document 02/26/25 08:08 RB [id number] 02/26/25 08:11 RB Document 03/12/25 08:03 KW [id number] 03/12/25 08:10 KW 02/26/25 03/12/25 08:08 08:03 - Today's Visit Information Type of service Follow-up Visit Follow-up Visit (Physician/WAXER TENDER (Physician/WAXER TENDER ) ) Arrival Mode Ambulatory Ambulatory Transfer Assistance None Patient Identification Verified (Name & Yes Yes ) Patient Requires Transmission-Based No Precautions Height and Weight Body Mass Index (BMI) 31.4 31.4 BMI Classification Obese Obese Vital Signs Temperature (97.8 F-99.1 F) 96.8 F L 97.6 F L Temperature Source Temporal Temporal Pulse Rate (60-100) 89 92 Pulse Location Monitor Monitor Respiratory Rate (12-18) 18 16 Respiratory rate source Observation Observation Oxygen Delivery Method Room Air Blood Pressure (90/60-120/80) 148/78 H 160/90 H Blood Pressure Mean (mm Hg) 101 113 Source Monitor Monitor Position Semi-Fowlers Semi-Fowlers Blood Pressure Location Left Arm Left Arm History Since Last Visit- (Skip if this is Patient's initial visit) Have you changed medications since your No No last visit? Any new allergies or adverse reactions No No Had a fall/change in ADL's that may No No increase risk of falls Signs or symptoms of abuse and/or No No neglect since last visit Have you been in the hospital since your No No last visit? Has dressing in place as prescribed Yes Yes Has compression in place as prescribed Yes Yes Has offloadiing in place as prescribed N/A N/A Experienced any changes in pain level or No No management Left Footwear Regular Shoe Regular Shoe Right Footwear Regular Shoe Regular Shoe Pain Scale: 0-10 Numeric Is Patient Pain Free? Yes Yes - Nurse 1 - General Ulcer Measurement Start: 02/26/25 08:08 Freq: Status: Active Protocol: Activity Type Activity Date Activity User E-sign Co-sign Detail Recorded Client Recorded Date Recorded By Document 02/26/25 08:08 RB [id number] 02/26/25 08:11 RB Document 03/12/25 08:03 KW [id number] 03/12/25 08:10 KW 02/26/25 03/12/25 08:08 08:03 Wound Center Nurse 1 #18 Right Medial Ankle -Combined with other wound No -Current Size (cm) - Length 0.6 1.3 -Current Size (cm) - Width 0.3 0.5 -Current Size (cm) - Depth 0.2 0.2 -Total Square Cm 0.18 0.65 -Tunneling No -Undermining/Tunneling No -Circular Undermining No -Exudate Amt Medium Medium -Exudate Type Serosanguineous Serosanguineous -Wound Margin Thickened & Distinct, Rolled Under Outline Attached -Granulation Amt Medium (34-66%) Large (67-100%) -Granulation Quality Mccool Mccool -Slough/Fibrin Yes -Necrosis Amt Medium (34-66%) Small (1-33%) -Necrotic Tissue Type Adherent Slough Adherent Slough -Structure Exposed N/A -Texture (Ara-wound Skin Appearance) Assessed, Assessed Scarring -Moisture (Ara-wound Skin Appearance) Assessed,Dry/ Assessed Scaly -Color (Ara-wound Skin Appearance) Assessed Assessed -Temperature (Ara-wound Skin No Abnormality No Abnormality Appearance) (Pt Warm) (Pt Warm) -Tenderness on Palpation (Ara-wound No No Skin Appearance) -Ulcer Cleansing Wound Cleanser Soap and Water -Foul Odor after Cleansing No No -Anesthetic Used 5% Lidocaine 5% Lidocaine Gel Gel #10 Left Medial Ankle -Combined with other wound No -Current Size (cm) - Length 3 2.8 -Current Size (cm) - Width 1.4 1 -Current Size (cm) - Depth 0.4 0.4 -Total Square Cm 4.2 2.8 -Tunneling No -Undermining/Tunneling No -Circular Undermining No -Exudate Amt Medium Large -Exudate Type Serosanguineous Serosanguineous -Wound Margin Distinct, Thickened Outline Attached -Granulation Amt Medium (34-66%) Large (67-100%) -Granulation Quality Mccool Mccool -Slough/Fibrin Yes -Necrosis Amt Medium (34-66%) Medium (34-66%) -Necrotic Tissue Type Adherent Slough Adherent Slough -Structure Exposed N/A -Texture (Ara-wound Skin Appearance) Assessed, Assessed Scarring -Moisture (Ara-wound Skin Appearance) Assessed,Dry/ Assessed Scaly -Color (Ara-wound Skin Appearance) Assessed Assessed -Temperature (Ara-wound Skin No Abnormality No Abnormality Appearance) (Pt Warm) (Pt Warm) -Tenderness on Palpation (Ara-wound No No Skin Appearance) -Ulcer Cleansing Wound Cleanser Soap and Water -Foul Odor after Cleansing No No -Anesthetic Used 5% Lidocaine 5% Lidocaine Gel Gel Lower Limb Edema Present Yes Right Calf (cm) 37.2 Right Ankle (cm) 23 Left Calf (cm) 37.2 Left Ankle (cm) 23.5 WC - Nurse 2 - General Ulcer CM Notes Start: 02/26/25 08:08 Freq: Status: Active Protocol: Activity Type Activity Date Activity User E-sign Co-sign Detail Recorded Client Recorded Date Recorded By Document 02/26/25 08:18 [id number] 02/26/25 08:30 Document 03/12/25 08:21 [id number] 03/12/25 08:30 GM 02/26/25 03/12/25 08:18 08:21 Wound Center Nurse 2 #18 Right Medial Ankle -Time 08:19 08:22 -Correct Patient Yes Yes -Correct Side, Site, Position Yes Yes -Correct Procedure Yes Yes -Procedure Performed Yes Yes -Type of Procedure Debridement Debridement -Clinical Debridement Subcutaneous Subcutaneous -Tissue Removed Subcutaneous Subcutaneous -Post Debridement (cm) - Length 1.2 1.2 -Post Debridement (cm) - Width 0.5 0.6 -Post Debridement (cm) - Depth 0.1 0.1 -Total Square (Post) (cm) 0.60 0.72 -Area of Debridement (cm) - Length 1.2 1.2 -Area of Debridement (cm) - Width 0.5 0.6 -Total Square (Area) (cm) 0.60 0.72 -Tunneling No No -Undermining/Tunneling No No -Circular Undermining No No -Wound/Ulcer Outcome Not Healed Not Healed -Ulcer Cleansing Rinsed/ Rinsed/ Irrigated with Irrigated with Saline Saline -Foul Odor after Cleansing No No -Bioengineered Tissue No No -Bleeding Controlled with Pressure Pressure -Treatment Response Procedure Procedure Tolerated Well Tolerated Well -Offloading No No -Debridement - Subq, 1st 20sq cm No No #10 Left Medial Ankle -Time 08:19 08:23 -Correct Patient Yes Yes -Correct Side, Site, Position Yes Yes -Correct Procedure Yes Yes -Procedure Performed Yes Yes -Type of Procedure Debridement Debridement -Clinical Debridement Subcutaneous Subcutaneous -Tissue Removed Subcutaneous Subcutaneous -Post Debridement (cm) - Length 3.2 3.2 -Post Debridement (cm) - Width 1.3 1.1 -Post Debridement (cm) - Depth 0.3 0.3 -Total Square (Post) (cm) 4.16 3.52 -Area of Debridement (cm) - Length 3.2 3.2 -Area of Debridement (cm) - Width 1.3 1.1 -Total Square (Area) (cm) 4.16 3.52 -Tunneling No No -Undermining/Tunneling No No -Circular Undermining No No -Wound/Ulcer Outcome Not Healed Not Healed -Ulcer Cleansing Rinsed/ Rinsed/ Irrigated with Irrigated with Saline Saline -Foul Odor after Cleansing No No -Bioengineered Tissue No No -Bleeding Controlled with Pressure Pressure -Treatment Response Procedure Procedure Tolerated Well Tolerated Well -Offloading No No -Debridement - Subq, 1st 20sq cm Yes Yes Pain Scale: 0-10 Numeric Is Patient Pain Free? Yes Yes - Nurse 3 - General Ulcer D/C NN Start: 02/26/25 08:08 Freq: Status: Active Protocol: Activity Type Activity Date Activity User E-sign Co-sign Detail Recorded Client Recorded Date Recorded By Document 02/26/25 08:39 RB [id number] 02/26/25 08:41 RB Document 03/12/25 08:39 DL [id number] 03/12/25 08:42 DL 02/26/25 03/12/25 08:39 08:39 Wound Care Center Nurse 3 #18 Right Medial Ankle -Ulcer Cleansing Rinsed/ Irrigated with Saline -Foul Odor after Cleansing No -Other Dressing abd ABD -Primary Dressing Covered/Secured with Secured with Tape #10 Left Medial Ankle -Ulcer Cleansing Rinsed/ Irrigated with Saline -Foul Odor after Cleansing No -Other Dressing abd ABD -Primary Dressing Covered/Secured with Secured with Tape -Wound Comment(s) Pt to resume dakins and Aquacel Ex at home. ABD only today so pt can go home and shower. BLE -Stockings Yes: pt own Yes stockings Treatment Response Procedure Procedure Tolerated Well Tolerated Well Pain Scale: 0-10 Numeric Is Patient Pain Free? Yes Yes WC - Visit Discharge Discharge Condition Stable Stable Ambulatory Status Ambulatory Ambulatory Transportation Private Auto Private Auto Medication Reconcilliation completed & No provided to patient/care provider Clinical Summary of Care Provided Yes Notes: pt will dress wound as directed aquacel extra, adaptic, keramax kerlix at home after shower Additional Wound Wound debrided: Left lower extremity (medial foot/ankle) Type of Debridement: Excisional debridement Anesthesia Used: 5% Lidocaine Gel Depth: in the subcutaneous layer Percentage of wound debrided: 100 Instrument Used: 5mm curette Tissue Removed: Slough and devitalized tissue Severity: Fat Layer Exposed Amount of bleeding with debridement: Mild Bleeding Controlled with: Pressure Patient tolerated procedure: Patient tolerated procedure well Assessment/Plan Assessment/Plan (1) Ulcer of left lower extremity with fat layer exposed: CODE(S): L97.922 - Non-pressure chronic ulcer of unspecified part of left lower leg with fat layer exposed (2) PVD (peripheral vascular disease): CODE(S): I73.9 - Peripheral vascular disease, unspecified (3) Chronic venous insufficiency: CODE(S): I87.2 - Venous insufficiency (chronic) (peripheral) (4) Delayed wound healing: CODE(S): T14.8XXD - Other injury of unspecified body region, subsequent encounter (5) Ulcer of right lower extremity with fat layer exposed: CODE(S): L97.912 - Non-pressure chronic ulcer of unspecified part of right lower leg with fat layer exposed PLAN: Plan Debridement done as documented above, procedure was well-tolerated. No acute concerns at this time. Drainage and maceration to left lower extremity noted at his last visit has resolved. Some improvement in his lower extremity edema as well. Has been on his feet less. He however is not doing dressing changes as recommended. Cultures reviewed, since he is clinically improved and has no concerns, will hold off antibiotics. For now, continue 30 minutes Dakin's soak daily. Apply Bactroban, Aquacel extra to ulcers, Adaptic to surrounding skin and cover with KerraMax care. Consistent use of compression, leg elevation and exercise as tolerated strongly recommended, he voiced understanding. Compliance with dressing changes also strongly recommended. Scheduled for bilateral lower extremity foam sclerotherapy on the 25 of March. Increased protein intake, protein supplements, zinc and vitamin D. Optimal diabetes control discussed, last A1C was 5.9. Also advised that he moisturize his skin consistently. His questions were answered, and he was advised to call with any further questions or concerns. Follow-up in 2 weeks or sooner if needed. This note was generated with [employer] software. It may contain incorrect words, spelling, and punctuation that were not noted in checking the note before signing.
== END 2025-03-28 23:59 | disposition home or self-care (01) ==
LOC: WC 08:00
PROVIDERS: PCP Family Medicine; Referring Provider Family Medicine; Visit Provider Internal Medicine
DX: I87.312 Chronic venous hypertension (idiopathic) with ulcer of left lower extremity (principal); L97.312 Non-pressure chronic ulcer of right ankle with fat layer exposed; L97.322 Non-pressure chronic ulcer of left ankle with fat layer exposed; I87.2 Venous insufficiency (chronic) (peripheral); R60.0 Localized edema; I73.9 Peripheral vascular disease, unspecified
CPT/HCPCS: 11042; 87070; 87075; 87077; 87186; 87205

== ENCOUNTER 2025-03-25 07:13 | Day surgery (SDC) | payer OTHER, SELFPAY ==
[2025-03-24 07:25] VITALS: BMI 39.4
--- NOTE | 2025-03-25 09:15 | PCM.HP.STD ---
HPI - General HPI Narrative RUBEN ALLEN, is a 59 M who presents with bilateral lower extremity venous insufficiency with ulceration of medial ankles. He has significant reflux both deep and superficial. On the right he has accessory saphenous vein that directly lead to wound; on the left there are perforators and accessory saphenous veins. [facility] Medical History MRSA infection Former smoker History of edema Ulcer of right lower extremity with fat layer exposed Stasis ulcer Home Medications ?Medication ?Instructions ?Recorded ?Last Taken ?Type aspirin 81 mg chewable tablet 81 mg PO DAILY@0800 HEALTH 07/04/18 07/17/21 History atorvastatin 20 mg tablet 20 mg PO QHS CHOLESTEROL 07/18/21 07/17/21 History hydrochlorothiazide 25 mg tablet 25 mg PO DAILY BP 07/18/21 07/18/21 History Allergy/AdvReac Type Severity Reaction Status Date / Time ciprofloxacin (From Cipro) Allergy Rash Verified 01/01/25 13:55 Family History Other CAD (coronary artery disease) CVA (cerebral vascular accident) Diabetes Heart disease Hypertension Social History Smoking Status: Former smoker Tobacco: How many years used: 21 ROS Constitutional Constitutional: Denies chills, fever(s), frequent falls, lethargy or weakness Eyes Eyes: Denies blind spots, change in vision or loss of vision ENT HEENT: Denies bleeding gums, hoarseness or sore throat Cardiovascular Cardiovascular: Denies abdominal pain, bluish discoloration of hand/feet, chest pain with activity, claudication, cold extremities, cyanosis, dyspnea on exertion, erythema on extremities, irregular heart rhythm, leg edema, leg ulcers, numbness in extremities or weakness in extremities Respiratory/Chest Respiratory/Chest: Denies cough, excessive phlegm production, shortness of breath at rest, shortness of breath with exertion or wheezing Gastrointestinal Gastrointestinal: Denies anorexia, change in stool character, constipation, diarrhea, melena or rectal bleeding Genitourinary Genitourinary: Denies dysuria or hematuria Musculoskeletal Musculoskeletal: Denies abnormal gait Integumentary Integumentary: Reports other Details: ; Denies erythema, non-healing lesions or wounds Neurologic Neurologic: Denies abnormal speech, focal weakness, headache(s), loss of vision, numbness, paresthesias or sensory deficit Hematologic/Lymphatic Hematologic/Lymphatic: Denies easy bleeding, easy bruising or lymphadenopathy Vital Signs Vital Signs Vital Signs: Weight Weight: 267 lb Body Mass Index (BMI) 39.4 Physical Exam Const alert, oriented x3, no apparent distress and healthy appearing General Appearance: cooperative; Negative for combative or lethargic Orientation / Consciousness: awake Exam Limitations: no limitations HEENT Head and Scalp: normocephalic and atraumatic Eyes EOMs intact bilaterally General Eye: normal appearance of both eyes Neck full ROM General: trachea midline Resp normal respiratory effort and no use of accessory muscles Effort and Inspection: Negative for labored, stridor or audible wheezes Cardio regular rate and regular rhythm Back/Spine Cervical Spine: cervical ROM normal Extremity full ROM, normal capillary refill and no clubbing, cyanosis or edema Skin no rashes or lesions noted Neuro oriented x3, CN's II-XII intact bilaterally, no focal motor deficits and no sensory deficits noted Psych thought process normal, cooperative, affect normal, speech normal and activity/motor behavior normal Assessment & Plan Assessment/Plan (1) Venous stasis ulcer of ankle: QUALIFIERS: Varicose vein presence: with varicose veins Laterality: unspecified laterality Non-pressure ulcer stage: with fat layer exposed Qualified Code(s): I83.003 - Varicose veins of unspecified lower extremity with ulcer of ankle; L97.302 - Non-pressure chronic ulcer of unspecified ankle with fat layer exposed PLAN: -foam ablation left accessory saphenous vein; will plan to treat left perforators prior to foam of superficial veins
--- NOTE | 2025-03-25 15:24 | PCM.OPRPT ---
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 He has reflux only in his varicosities in his deep system of the right lower extremity so he presents now for foam ablation of the varicosities feeding the wound bed. Description of procedure: Upon obtaining informed consent and verification correct patient procedure and site the patient was taken to the Administrative Resources Associate he was positioned prepped and draped in usual sterile fashion. Ultrasound used to evaluate the varicosities from the wound bed at the medial malleolus towards the knee with multiple parallel varicose vein segments intermingling and cross communicating. A suitable site for access was identified just above the wound and the vessel accessed with a butterfly needle 21-gauge. Once blood return was obtained the needle was flushed with saline and visualized to be within the vessel. Next Varithena foam was drawn out per wash driller's instructions and infused into the butterfly needle and varicosities under direct visualization with ultrasound. Once the glue approached the proximal calf where the vessels went more posteriorly and were difficult to visualize manual pressure was held over the bundles of varicosities. After 3 minutes of pressure the vessels were reassessed with foam to the compression point and no further. The needle was then withdrawn a minute pressure held until hemostasis obtained and dry sterile dressing followed by El wrap was applied. The patient was then taken to the recovery area with plan discharged to home. Surgical Findings: See above Complications Complications: No
== END 2025-03-25 10:20 | disposition home or self-care (01) ==
PROVIDERS: PCP Family Medicine; Referring Provider Surgery Trauma Surgery; Visit Provider Surgery Trauma Surgery
DX: I83.013 Varicose veins of right lower extremity with ulcer of ankle (principal); L97.312 Non-pressure chronic ulcer of right ankle with fat layer exposed; Z79.82 Long term (current) use of aspirin; Z79.899 Other long term (current) drug therapy; Z87.891 Personal history of nicotine dependence
CPT/HCPCS: 36465

== ENCOUNTER → 2025-03-30 | Outpatient (CLI) | payer OTHER, SELFPAY ==
--- NOTE | 2025-03-30 07:53 | VDLE_ITS ---
Reason For Study Reason For Study: S/P Ablation RIGHT LEFT CFV is compressible, spontaneous, phasic, competent CFV is compressible, spontaneous, phasic, competent, and demonstrates normal augmentation. and demonstrates normal augmentation. FV is compressible, spontaneous, phasic, competent and demonstrates normal augmentation. POP V is compressible, phasic, and INCOMPETENT for greater than 1.0 second. T/P Trunk is compressible. PTV is compressible. RT PerV is compressible. GSV is absent, previous ablation. Varicose veins in mid-distal calf are noncompressible s/p Verithena ablation. Procedure This is a venous duplex using B-mode, color flow and spectral Doppler. Exam performed in department. VL/Venous Duplex US, Unilateral Interpretation Summary Deep veins of the right lower extremity are patent and compressible segmentally . There is no evidence of right lower extremity deep vein thrombosis. Right calf varicosities occluded consistent with recent foam ablation Ordering Physician: Odalys Dior Referring Physician: Arvind Frausto Performed By: Kayy Rodriguez RVT
== END | disposition home or self-care (01) ==
LOC: CVS 07:52
PROVIDERS: PCP Family Medicine; Referring Provider Surgery Trauma Surgery; Visit Provider Surgery Trauma Surgery
DX: Z48.812 Encounter for surgical aftercare following surgery on the circulatory system (principal); I87.8 Other specified disorders of veins; M79.605 Pain in left leg
CPT/HCPCS: 93971

== ENCOUNTER 2025-04-16 08:45 | Outpatient (RCR) | payer OTHER, SELFPAY ==
[2025-03-29 00:18] VITALS: BP 160/90; PULSE 92; RESP 16; TEMP 36.4; O2SAT 99; BMI 31.4
[2025-04-09 08:15] VITALS: BP 149/86; PULSE 78; RESP 18; TEMP 36.3; BMI 31.4
--- NOTE | 2025-04-09 08:37 | PN.PCM_ITS ---
History of Present Illness Date of Service: 04/09/25 Chief Complaint: Bilateral lower extremity ulcers History of Wound: This is a 54-year-old male presents to wound healing center with a long-standing history of chronic venous insufficiency, chronic venous hypertension, lower extremity edema, lower extremity pain, and chronic left lower extremity ulcer. The patient has previously undergone endovenous laser ablation of the left and right great saphenous vein, the small saphenous vein, the left accessory saphenous vein, and an incompetent left calf signals collector/analyst vein located 15 cm proximal to the left medial malleolus. He is currently wearing graduated compression stockings which are documented to be 20-30 mmHg compression and these are thigh high. He reports great compliance with use. He is also had previous arterial work-up with no intervention recommended by letter, his vascular surgeon. He denies taking nutritional supplementation. He saw dermatology and had a biopsy of the ulcer site. He also was previously treated by infectious disease for various contaminations and infections. He is not antibiotics at this time nor does he have any redness or odor coming from the wound. He denies fever, chill, nausea, vomiting, loss of appetite. 05/18/22: Mr. Jeronimo presents with a new right lower extremity ulceration. He states that this has been present for months and he has been trying to manage it at home without any significant improvement. Opened up months ago, no known pr ecipitating factor. Has been applying wound dressings without any significant improvement. He reports increased drainage. Denies significant pain. No chills, fever or feeling of unwell. 10/16/24: Mr. Jeronimo presents with a new right lower extremity ulceration. He states that it started out as a very small area that was slipping and then in the last week, became rather extensive. He also reports a foul smell. Has noted increase lower extremity edema. He states that he has been wearing his compression (20 to 30 mmHg) consistently. No chills, fever or otherwise feeling of unwell. Also has a new area on his left lower medial leg. He states that he has been applying same 1 products to these new areas. Progress of Wound: Had a right lower extremity foam sclerotherapy on the 25 of March. Procedure was uneventful. He thinks his right lower extremity ulcer has shown some worsening. No increased drainage or pain. He states that he has been doing dressing changes as recommended. Objective Data Objective Data Vital Signs: Vital Signs Temp Pulse Resp BP Pulse Ox 97.3 F L 78 18 149/86 H 99 04/09/25 08:15 04/09/25 08:15 04/09/25 08:15 04/09/25 08:15 03/29/25 00:18 Body Mass Index (BMI) 31.4 Charges/Coding Procedures Integumentary 111xxx-113xx: 13500 [place] subq tissue 20 sq cm/< Physical Exam Const alert, oriented x3 and no apparent distress General Appearance: cooperative and comfortable HEENT normocephalic Head and Scalp: normal to inspection, normocephalic and atraumatic Eyes EOMs intact bilaterally Neck full ROM and supple General: normal visual inspection Resp normal respiratory effort Effort and Inspection: able to speak in complete sentences Extremity normal to inspection General Extremity: edema Skin General Skin Exam: dry skin Wounds: wounds noted size Size: See clinical note, bed granulating well, margins well defined, no odor and open Neuro oriented x3, CN's II-XII intact bilaterally, moves all extremities and no focal motor deficits Psych mental status grossly normal, thought process normal, cooperative and affect normal Debridement Note Debridement Note Wound debrided: Right medial ankle/lower extremity Type of Debridement: Excisional debridement Anesthesia Used: 5% Lidocaine Gel Depth: Down to and including healthy tissue and in the subcutaneous layer Percentage of wound debrided: 100 Instrument Used: 3mm curette Tissue Removed: Slough and devitalized tissue Severity: Fat Layer Exposed Amount of bleeding with debridement: Mild Bleeding Controlled with: Pressure Patient tolerated procedure: Patient tolerated procedure well Post-Debridement Measurements and Additional Note: Post-Debridement Measurements/Treatment - Nurse 1 - General Ulcer Assessment Start: 04/09/25 08:15 Freq: Status: Active Protocol: SHANTA Activity Type Activity Date Activity User E-sign Co-sign Detail Recorded Client Recorded Date Recorded By Document 04/09/25 08:15 TRIPP [id number] 04/09/25 08:17 TRIPP 04/09/25 08:15 - Today's Visit Information Type of service Follow-up Visit (Physician/CHEMICAL ENGINEERING TECHNICIAN ) Arrival Mode Ambulatory Transfer Assistance None Patient Identification Verified (Name & Yes ) Patient Requires Transmission-Based No Precautions Height and Weight Body Mass Index (BMI) 31.4 BMI Classification Obese Vital Signs Temperature (97.8 F-99.1 F) 97.3 F L Temperature Source Temporal Pulse Rate (60-100) 78 Pulse Location Monitor Respiratory Rate (12-18) 18 Respiratory rate source Observation Blood Pressure (90/60-120/80) 149/86 H Blood Pressure Mean (mm Hg) 107 Source Monitor Position Semi-Fowlers Blood Pressure Location Left Arm History Since Last Visit- (Skip if this is Patient's initial visit) Have you changed medications since your No last visit? Any new allergies or adverse reactions No Had a fall/change in ADL's that may No increase risk of falls Signs or symptoms of abuse and/or No neglect since last visit Have you been in the hospital since your No last visit? Has dressing in place as prescribed Yes Has compression in place as prescribed Yes Has offloadiing in place as prescribed N/A Experienced any changes in pain level or No management Left Footwear Regular Shoe Right Footwear Regular Shoe Pain Scale: 0-10 Numeric Is Patient Pain Free? Yes WC - Nurse 1 - General Ulcer Measurement Start: 04/09/25 08:15 Freq: Status: Active Protocol: Activity Type Activity Date Activity User E-sign Co-sign Detail Recorded Client Recorded Date Recorded By Document 04/09/25 08:15 [email or web address] [id number] 04/09/25 08:17 RB 04/09/25 08:15 Wound Center Nurse 1 #18 Right Medial Ankle -Combined with other wound No -Current Size (cm) - Length 1.1 -Current Size (cm) - Width 0.4 -Current Size (cm) - Depth 0.2 -Total Square Cm 0.44 -Tunneling No -Undermining/Tunneling No -Circular Undermining No -Exudate Amt Medium -Exudate Type Serosanguineous -Wound Margin Thickened & Rolled Under -Granulation Amt Medium (34-66%) -Granulation Quality [place] -Slough/Fibrin Yes -Necrosis Amt Small (1-33%) -Necrotic Tissue Type Adherent Slough -Structure Exposed N/A -Texture (Ara-wound Skin Appearance) Scarring -Moisture (Ara-wound Skin Appearance) Dry/Scaly -Color (Ara-wound Skin Appearance) Assessed -Temperature (Ara-wound Skin No Abnormality Appearance) (Pt Warm) -Tenderness on Palpation (Ara-wound No Skin Appearance) -Ulcer Cleansing Wound Cleanser -Foul Odor after Cleansing No -Anesthetic Used 5% Lidocaine Gel #10 Left Medial Ankle -Combined with other wound No -Current Size (cm) - Length 4 -Current Size (cm) - Width 1 -Current Size (cm) - Depth 0.3 -Total Square Cm 4 -Tunneling No -Undermining/Tunneling No -Circular Undermining No -Exudate Amt Medium -Exudate Type Serosanguineous -Wound Margin Thickened & Rolled Under -Granulation Amt Medium (34-66%) -Granulation Quality [place] -Slough/Fibrin Yes -Necrosis Amt Medium (34-66%) -Necrotic Tissue Type Adherent Slough -Structure Exposed N/A -Texture (Ara-wound Skin Appearance) Scarring -Moisture (Ara-wound Skin Appearance) Dry/Scaly -Color (Ara-wound Skin Appearance) Assessed -Temperature (Ara-wound Skin No Abnormality Appearance) (Pt Warm) -Tenderness on Palpation (Ara-wound No Skin Appearance) -Ulcer Cleansing Wound Cleanser -Foul Odor after Cleansing No -Anesthetic Used 5% Lidocaine Gel Lower Limb Edema Present Yes Right Calf (cm) 37.5 Right Ankle (cm) 24.5 Left Ankle (cm) 37.5 Left Foot (cm) 22.5 WC - Nurse 2 - General Ulcer CM Notes Start: 04/09/25 08:15 Freq: Status: Active Protocol: Activity Type Activity Date Activity User E-sign Co-sign Detail Recorded Client Recorded Date Recorded By Document 04/09/25 08:22 [id number] 04/09/25 08:32 04/09/25 08:22 Wound Center Nurse 2 #18 Right Medial Ankle -Time 08:23 -Correct Patient Yes -Correct Side, Site, Position Yes -Correct Procedure Yes -Procedure Performed Yes -Type of Procedure Debridement -Clinical Debridement Subcutaneous -Tissue Removed Subcutaneous -Post Debridement (cm) - Length 1.3 -Post Debridement (cm) - Width 0.5 -Post Debridement (cm) - Depth 0.1 -Total Square (Post) (cm) 0.65 -Area of Debridement (cm) - Length 1.3 -Area of Debridement (cm) - Width 0.5 -Total Square (Area) (cm) 0.65 -Tunneling No -Undermining/Tunneling No -Circular Undermining No -Wound/Ulcer Outcome Not Healed -Ulcer Cleansing Rinsed/ Irrigated with Saline -Foul Odor after Cleansing No -Bioengineered Tissue No -Bleeding Controlled with Pressure -Treatment Response Procedure Tolerated Well -Offloading No -Debridement - Subq, 1st 20sq cm No #10 Left Medial Ankle -Time 08:23 -Correct Patient Yes -Correct Side, Site, Position Yes -Correct Procedure Yes -Procedure Performed Yes -Type of Procedure Debridement -Clinical Debridement Subcutaneous -Tissue Removed Subcutaneous -Post Debridement (cm) - Length 3.0 -Post Debridement (cm) - Width 1.0 -Post Debridement (cm) - Depth 0.3 -Total Square (Post) (cm) 3.00 -Area of Debridement (cm) - Length 3.0 -Area of Debridement (cm) - Width 1.0 -Total Square (Area) (cm) 3.00 -Tunneling No -Undermining/Tunneling No -Circular Undermining No -Wound/Ulcer Outcome Not Healed -Ulcer Cleansing Rinsed/ Irrigated with Saline -Foul Odor after Cleansing No -Bioengineered Tissue No -Bleeding Controlled with Pressure -Treatment Response Procedure Tolerated Well -Offloading No -Debridement - Subq, 1st 20sq cm Yes Pain Scale: 0-10 Numeric Is Patient Pain Free? Yes Additional Wound Wound debrided: Left medial ankle/lower extremity Type of Debridement: Excisional debridement Anesthesia Used: 5% Lidocaine Gel Depth: Down to and including healthy tissue and in the subcutaneous layer Percentage of wound debrided: 100 Instrument Used: 5mm curette Tissue Removed: Slough and devitalized tissue Severity: Fat Layer Exposed Amount of bleeding with debridement: Mild Bleeding Controlled with: Pressure Patient tolerated procedure: Patient tolerated procedure well Assessment/Plan Assessment/Plan (1) Ulcer of left lower extremity with fat layer exposed: CODE(S): L97.922 - Non-pressure chronic ulcer of unspecified part of left lower leg with fat layer exposed (2) PVD (peripheral vascular disease): CODE(S): I73.9 - Peripheral vascular disease, unspecified (3) Chronic venous insufficiency: CODE(S): I87.2 - Venous insufficiency (chronic) (peripheral) (4) Delayed wound healing: CODE(S): T14.8XXD - Other injury of unspecified body region, subsequent encounter (5) Ulcer of right lower extremity with fat layer exposed: CODE(S): L97.912 - Non-pressure chronic ulcer of unspecified part of right lower leg with fat layer exposed PLAN: Plan Debridement done as documented above, procedure was well-tolerated. Status post recent foam sclerotherapy however only right lower extremity was done. Has another appointment on Sunday and plan is to schedule the left. Right lower extremity ulcer is stable, left with some improvement. Continue 30 minutes Dakin's soak daily. Apply Bactroban, Aquacel extra to ulcers, Adaptic to surrounding skin and cover with KerraMax care. Consistent use of compression, leg elevation and exercise as tolerated strongly recommended, he voiced understanding. Compliance with dressing changes also strongly recommended. Increased protein intake, protein supplements, zinc and vitamin D. Optimal diabetes control discussed, last A1C was 5.9. Also advised that he moisturize his skin consistently. His questions were answered, and he was advised to call with any further questions or concerns. Follow-up in 1 week. This note was generated with [employer] dictation software. It may contain incorrect words, spelling, and punctuation that were not noted in checking the note before signing.
[2025-04-16 08:49] VITALS: BP 162/82; PULSE 104; RESP 18; TEMP 36.3; BMI 31.4
--- NOTE | 2025-04-16 13:33 | PN.PCM_ITS ---
History of Present Illness Date of Service: 04/16/25 Chief Complaint: Bilateral lower extremity ulcers History of Wound: This is a 54-year-old male presents to wound healing center with a long-standing history of chronic venous insufficiency, chronic venous hypertension, lower extremity edema, lower extremity pain, and chronic left lower extremity ulcer. 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 He is currently wearing graduated compression stockings which are documented to be 20-30 mmHg compression and these are thigh high. He reports great compliance with use. He is also had previous arterial work-up with no intervention recommended by letter, his vascular surgeon. He denies taking nutritional supplementation. He saw dermatology and had a biopsy of the ulcer site. He also was previously treated by infectious disease for various contaminations and infections. He is not antibiotics at this time nor does he have any redness or odor coming from the wound. He denies fever, chill, nausea, vomiting, loss of appetite. 05/18/22: Mr. Jeronimo presents with a new right lower extremity ulceration. He states that this has been present for months and he has been trying to manage it at home without any significant improvement. Opened up months ago, no known pr ecipitating factor. Has been applying wound dressings without any significant improvement. He reports increased drainage. Denies significant pain. No chills, fever or feeling of unwell. 10/16/24: Mr. Jeronimo presents with a new right lower extremity ulceration. He states that it started out as a very small area that was slipping and then in the last week, became rather extensive. He also reports a foul smell. Has noted increase lower extremity edema. He states that he has been wearing his compression (20 to 30 mmHg) consistently. No chills, fever or otherwise feeling of unwell. Also has a new area on his left lower medial leg. He states that he has been applying same 1 products to these new areas. Progress of Wound: Worsening of his right lower extremity ulceration. Patient states that he noted it this morning when he took his dressing off. Increased drainage noted with dressing change but otherwise, no increased pain or concerns prior to today. Scheduled for his left lower extremity procedure on the 14 of May. He states that he has been doing dressing changes as recommended. Objective Data Objective Data Vital Signs: Vital Signs Temp Pulse Resp BP Pulse Ox O2 Del Method 97.3 F L 104 H 18 162/82 H 99 Room Air 04/16/25 08:49 04/16/25 08:49 04/16/25 08:49 04/16/25 08:49 03/29/25 00:18 04/16/25 08:49 Oxygen Delivery Method Room Air Body Mass Index (BMI) 31.4 Charges/Coding Procedures Integumentary 111xxx-113xx: [id number] Lakeisha subq tissue 20 sq cm/< Physical Exam Const alert, oriented x3 and no apparent distress General Appearance: cooperative and comfortable HEENT normocephalic Head and Scalp: normal to inspection, normocephalic and atraumatic Eyes EOMs intact bilaterally Neck full ROM and supple General: normal visual inspection Resp normal respiratory effort Effort and Inspection: able to speak in complete sentences Extremity normal to inspection General Extremity: edema Skin General Skin Exam: dry skin Wounds: wounds noted size Size: See clinical note, bed granulating well, margins macerated, well defined and surrounding erythema, no odor, open and surrounding erythema Neuro oriented x3, CN's II-XII intact bilaterally, moves all extremities and no focal motor deficits Psych mental status grossly normal, thought process normal, cooperative and affect normal Debridement Note Debridement Note Wound debrided: Right medial ankle Type of Debridement: Excisional debridement Anesthesia Used: 5% Lidocaine Gel Depth: Down to and including healthy tissue and in the subcutaneous layer Percentage of wound debrided: 100 Instrument Used: 5mm curette Tissue Removed: Slough and devitalized tissue Severity: Fat Layer Exposed Amount of bleeding with debridement: Mild Bleeding Controlled with: Pressure Patient tolerated procedure: Patient tolerated procedure well Post-Debridement Measurements and Additional Note: Post-Debridement Measurements/Treatment WC - Nurse 1 - General Ulcer Assessment Start: 04/09/25 08:15 Freq: Status: Active Protocol: SHANTA Activity Type Activity Date Activity User E-sign Co-sign Detail Recorded Client Recorded Date Recorded By Document 04/09/25 08:15 RB [id number] 04/09/25 08:17 RB Document 04/16/25 08:49 KW [id number] 04/16/25 08:53 KW 04/09/25 04/16/25 08:15 08:49 - Today's Visit Information Type of service Follow-up Visit Follow-up Visit (Physician/ACCOUNTING PROFESSOR (Physician/ACCOUNTING PROFESSOR ) ) Arrival Mode Ambulatory Ambulatory Transfer Assistance None Patient Identification Verified (Name & Yes Yes ) Patient Requires Transmission-Based No Precautions Height and Weight Body Mass Index (BMI) 31.4 31.4 BMI Classification Obese Obese Vital Signs Temperature (97.8 F-99.1 F) 97.3 F L 97.3 F L Temperature Source Temporal Temporal Pulse Rate (60-100) 78 104 H Pulse Location Monitor Monitor Respiratory Rate (12-18) 18 18 Respiratory rate source Observation Observation Oxygen Delivery Method Room Air Blood Pressure (90/60-120/80) 149/86 H 162/82 H Blood Pressure Mean (mm Hg) 107 108 Source Monitor Monitor Position Semi-Fowlers Semi-Fowlers Blood Pressure Location Left Arm Left Arm History Since Last Visit- (Skip if this is Patient's initial visit) Have you changed medications since your No No last visit? Any new allergies or adverse reactions No No Had a fall/change in ADL's that may No No increase risk of falls Signs or symptoms of abuse and/or No No neglect since last visit Have you been in the hospital since your No No last visit? Has dressing in place as prescribed Yes Yes Has compression in place as prescribed Yes Yes Has offloadiing in place as prescribed N/A N/A Experienced any changes in pain level or No No management Left Footwear Regular Shoe Regular Shoe Right Footwear Regular Shoe Regular Shoe Pain Scale: 0-10 Numeric Is Patient Pain Free? Yes Yes - Nurse 1 - General Ulcer Measurement Start: 04/09/25 08:15 Freq: Status: Active Protocol: Activity Type Activity Date Activity User E-sign Co-sign Detail Recorded Client Recorded Date Recorded By Document 04/09/25 08:15 RB [id number] 04/09/25 08:17 RB Document 04/16/25 08:49 KW [id number] 04/16/25 08:53 KW 04/09/25 04/16/25 08:15 08:49 Wound Center Nurse 1 #18 Right Medial Ankle -Combined with other wound No -Current Size (cm) - Length 1.1 2 -Current Size (cm) - Width 0.4 1.3 -Current Size (cm) - Depth 0.2 0.2 -Total Square Cm 0.44 2.6 -Tunneling No -Undermining/Tunneling No -Circular Undermining No -Exudate Amt Medium Medium -Exudate Type Serosanguineous Serosanguineous -Wound Margin Thickened & Thickened Rolled Under -Granulation Amt Medium (34-66%) Large (67-100%) -Granulation Quality [place] Red -Slough/Fibrin Yes -Necrosis Amt Small (1-33%) -Necrotic Tissue Type Adherent Slough -Structure Exposed N/A -Texture (Ara-wound Skin Appearance) Scarring Assessed -Moisture (Ara-wound Skin Appearance) Dry/Scaly Assessed, Maceration -Color (Ara-wound Skin Appearance) Assessed Assessed -Temperature (Ara-wound Skin No Abnormality No Abnormality Appearance) (Pt Warm) (Pt Warm) -Tenderness on Palpation (Ara-wound No No Skin Appearance) -Ulcer Cleansing Wound Cleanser Soap and Water -Foul Odor after Cleansing No No -Anesthetic Used 5% Lidocaine 5% Lidocaine Gel Gel #10 Left Medial Ankle -Combined with other wound No -Current Size (cm) - Length 4 2.6 -Current Size (cm) - Width 1 1 -Current Size (cm) - Depth 0.3 0.3 -Total Square Cm 4 2.6 -Tunneling No -Undermining/Tunneling No -Circular Undermining No -Exudate Amt Medium Medium -Exudate Type Serosanguineous Serosanguineous -Wound Margin Thickened & Thickened Rolled Under -Granulation Amt Medium (34-66%) Large (67-100%) -Granulation Quality [place] Red -Slough/Fibrin Yes -Necrosis Amt Medium (34-66%) -Necrotic Tissue Type Adherent Slough -Structure Exposed N/A -Texture (Ara-wound Skin Appearance) Scarring Assessed -Moisture (Ara-wound Skin Appearance) Dry/Scaly Assessed, Maceration -Color (Ara-wound Skin Appearance) Assessed Assessed -Temperature (Ara-wound Skin No Abnormality No Abnormality Appearance) (Pt Warm) (Pt Warm) -Tenderness on Palpation (Ara-wound No No Skin Appearance) -Ulcer Cleansing Wound Cleanser Soap and Water -Foul Odor after Cleansing No No -Anesthetic Used 5% Lidocaine 5% Lidocaine Gel Gel Lower Limb Edema Present Yes Right Calf (cm) 37.5 Right Ankle (cm) 24.5 Left Ankle (cm) 37.5 Left Foot (cm) 22.5 - Nurse 2 - General Ulcer CM Notes Start: 04/09/25 08:15 Freq: Status: Active Protocol: Activity Type Activity Date Activity User E-sign Co-sign Detail Recorded Client Recorded Date Recorded By Document 04/09/25 08:22 [id number] 04/09/25 08:32 Document 04/16/25 09:32 [id number] 04/16/25 09:40 04/09/25 04/16/25 08:22 09:32 Wound Center Nurse 2 #18 Right Medial Ankle -Time 08:23 09:32 -Correct Patient Yes Yes -Correct Side, Site, Position Yes Yes -Correct Procedure Yes Yes -Procedure Performed Yes Yes -Type of Procedure Debridement Debridement -Clinical Debridement Subcutaneous Subcutaneous -Tissue Removed Subcutaneous Subcutaneous -Post Debridement (cm) - Length 1.3 2.6 -Post Debridement (cm) - Width 0.5 1.6 -Post Debridement (cm) - Depth 0.1 0.1 -Total Square (Post) (cm) 0.65 4.16 -Area of Debridement (cm) - Length 1.3 2.6 -Area of Debridement (cm) - Width 0.5 1.6 -Total Square (Area) (cm) 0.65 4.16 -Tunneling No No -Undermining/Tunneling No No -Circular Undermining No No -Wound/Ulcer Outcome Not Healed Not Healed -Ulcer Cleansing Rinsed/ Rinsed/ Irrigated with Irrigated with Saline Saline -Foul Odor after Cleansing No No -Bioengineered Tissue No No -Bleeding Controlled with Pressure Pressure -Treatment Response Procedure Procedure Tolerated Well Tolerated Well -Offloading No No -Debridement - Subq, 1st 20sq cm No No #10 Left Medial Ankle -Time 08:23 09:35 -Correct Patient Yes Yes -Correct Side, Site, Position Yes Yes -Correct Procedure Yes Yes -Procedure Performed Yes Yes -Type of Procedure Debridement Debridement -Clinical Debridement Subcutaneous Subcutaneous -Tissue Removed Subcutaneous Subcutaneous -Post Debridement (cm) - Length 3.0 3.5 -Post Debridement (cm) - Width 1.0 1.3 -Post Debridement (cm) - Depth 0.3 0.3 -Total Square (Post) (cm) 3.00 4.55 -Area of Debridement (cm) - Length 3.0 3.5 -Area of Debridement (cm) - Width 1.0 1.3 -Total Square (Area) (cm) 3.00 4.55 -Tunneling No No -Undermining/Tunneling No No -Circular Undermining No No -Wound/Ulcer Outcome Not Healed Not Healed -Ulcer Cleansing Rinsed/ Rinsed/ Irrigated with Irrigated with Saline Saline -Foul Odor after Cleansing No No -Bioengineered Tissue No No -Bleeding Controlled with Pressure Pressure -Treatment Response Procedure Procedure Tolerated Well Tolerated Well -Offloading No -Debridement - Subq, 1st 20sq cm Yes Yes Pain Scale: 0-10 Numeric Is Patient Pain Free? Yes Yes - Nurse 3 - General Ulcer D/C NN Start: 04/09/25 08:15 Freq: Status: Active Protocol: Activity Type Activity Date Activity User E-sign Co-sign Detail Recorded Client Recorded Date Recorded By Document 04/09/25 08:38 [id number] 04/09/25 08:38 Document 04/16/25 09:59 CO [id number] 04/16/25 10:03 CO 04/09/25 04/16/25 08:38 09:59 Wound Care Center Nurse 3 #18 Right Medial Ankle -Ulcer Cleansing Not Cleansed -Foul Odor after Cleansing No No -Negative Pressure Wound Therapy N/A -Other Dressing DAKINKS AND ABD -Primary Dressing Covered/Secured with Secured with Secured with Tape,Other Tape -Other Covering abd #10 Left Medial Ankle -Ulcer Cleansing Not Cleansed -Foul Odor after Cleansing No -Other Dressing DAKINS AND ABD -Primary Dressing Covered/Secured with Secured with Tape -Other Covering 1/2 abd -Wound Comment(s) PT HAS OWN SUPPLIES. PT REFUSED THE WOUND ORDER SUPPLIES BECAUSE HE IS GOING HOME TO SHOWER THAN HE WILL PLACE HIS SUPRA-ABSORB ON AND AQUACEL EXTRA. Pain Scale: 0-10 Numeric Is Patient Pain Free? Yes Yes - Visit Discharge Discharge Condition Stable Stable Ambulatory Status Ambulatory Ambulatory Transportation Private Auto Private Auto Medication Reconcilliation completed & No provided to patient/care provider Clinical Summary of Care Provided Yes Additional Wound Wound debrided: Left medial ankle Type of Debridement: Excisional debridement Anesthesia Used: 5% Lidocaine Gel Depth: Down to and including healthy tissue and in the subcutaneous layer Percentage of wound debrided: 100 Instrument Used: 5mm curette Tissue Removed: Slough and devitalized tissue Severity: Fat Layer Exposed Amount of bleeding with debridement: Mild Bleeding Controlled with: Pressure Patient tolerated procedure: Patient tolerated procedure well Assessment/Plan Assessment/Plan (1) Ulcer of left lower extremity with fat layer exposed: CODE(S): L97.922 - Non-pressure chronic ulcer of unspecified part of left lower leg with fat layer exposed (2) PVD (peripheral vascular disease): CODE(S): I73.9 - Peripheral vascular disease, unspecified (3) Chronic venous insufficiency: CODE(S): I87.2 - Venous insufficiency (chronic) (peripheral) (4) Delayed wound healing: CODE(S): T14.8XXD - Other injury of unspecified body region, subsequent encounter (5) Ulcer of right lower extremity with fat layer exposed: CODE(S): L97.912 - Non-pressure chronic ulcer of unspecified part of right lower leg with fat layer exposed PLAN: Plan Debridement done as documented above, procedure was well-tolerated. Status post recent foam sclerotherapy however only right lower extremity was done. This morning, noted worsening of his right lower extremity ulcer. Increased drainage also noted during change but otherwise, no concerns reported over the last week. Denies increased pain or foul smell. Left lower extremity procedure scheduled for the of next month. Periwound maceration noted on the left and erythema on the right. Cultures taken from the right medial ankle ulcer. For now, continue 30 minutes Dakin's soak daily. Apply Bactroban, Aquacel extra to ulcers, cover with KerraMax care. Consistent use of compression, leg elevation and exercise as tolerated strongly recommended, he voiced understanding. Compliance with dressing changes also strongly recommended. Increased protein intake, protein supplements, zinc and vitamin D. Optimal diabetes control discussed, last A1C was 5.9. Also advised that he moisturize his skin consistently. His questions were answered, and he was advised to call with any further questions or concerns. Follow-up in 2 weeks per patient preference. This note was generated with [employer] software. It may contain incorrect words, spelling, and punctuation that were not noted in checking the note before signing.
== END 2025-04-27 23:59 | disposition home or self-care (01) ==
LOC: WC 08:45
PROVIDERS: PCP Family Medicine; Referring Provider Family Medicine; Visit Provider Internal Medicine
DX: I87.312 Chronic venous hypertension (idiopathic) with ulcer of left lower extremity (principal); L97.312 Non-pressure chronic ulcer of right ankle with fat layer exposed; L97.322 Non-pressure chronic ulcer of left ankle with fat layer exposed; I87.2 Venous insufficiency (chronic) (peripheral); I73.9 Peripheral vascular disease, unspecified; R60.0 Localized edema
CPT/HCPCS: 11042; 87070; 87075; 87077; 87186; 87205

== ENCOUNTER 2025-05-14 06:39 | Day surgery (SDC) | payer OTHER, SELFPAY ==
[2025-05-13 09:01] VITALS: BMI 38.9
--- OUTSIDE RECORDS SUMMARY | 2025-05-14 07:02 | XMS RPT_ITS | CCD ---
Author Organization [facility] Care Team Providers Care Pack Press Operator Name Role Phone LACY, DR EUGENIO Dickerson Attending Unavaila ble LACY, DR EUGENIO Dickerson Primary Care Unavaila ble LACY, DR EUGENIO Dickerson Admitting Unavaila ble Care Physician, No Primary Primary Care Provider Unavailable Dr. Alice Amaya Attending Provider [phone] Jose Luis, Dr. Jenkins Other Provider [phone] Care Physician, No Primary Primary Care Provider Unavailable Dr. Alice Amaya Attending Provider [phone] Dr. Alice Amaya Other Provider [phone] Jett LOVE, [facility] Primary Care Provider Care Physician, No Primary Primary Care Provider Unavailable Dr. Alice Amaya Attending Provider [phone] OleDr. Alice coronel Other Provider [phone] Care Physician, No Primary Primary Care Provider Unavailable Dr. Alice Amaya Attending Provider [phone] Dr. Alice Amaya Other Provider [phone] Care Physician, No Primary Primary Care Provider Unavailable Dr. Alice Amaya Attending Provider [phone] Dr. Alice Amaya Other Provider [phone] Care Physician, No Primary Primary Care Provider Unavailable Dr. Alice Amaya Attending Provider [phone] Dr. Alice Amaya Other Provider [phone] Care Physician, No Primary Referring Provider Un available Dr. Christian Doty Attending Provider Care Physician, No Primary Primary Care Provider Unavailable Dr. Alice Amaya Attending Provider [phone] Dr. Alice Amaya Other Provider [phone] Dr. Christian Doty Referring Provider [phone] Dr. Christian Doty Other Provider Dr. George Frausto Primary Care Provider Care Physician, No Primary Primary Care Provider Unavailable Dr. Alice Amaya Attending Provider [phone] Dr. Alice Amaya Other Provider [phone] Dr. George Frausto Primary Care Provider Dr. Mikhail Beltran Attending Provider [phone]) Dr. Christian Doty Referring Provider [phone] 10 Care Physician, No Primary Primary Care Provider Unavailable Dr. Alice Amaya Attending Provider [phone] Dr. Alice Amaya Other Provider [phone] Care Physician, No Primary Referring Provider Un available Dr. Christian Doty Attending Provider [phone] Dr. George Frausto Primary Care Provider Dr. Mikhail Beltran Attending Provider [phone]) Dr. Christian Doty Referring Provider [phone] Dr. Christian Doty Other Provider Arvind Frausto MD Primary Care Provider Care Physician, No Primary Primary Care Provider Unavailable Dr. Alice Amaya Attending Provider [phone] Dr. Alice Amaya Other Provider [phone] Dr. Christian Doty Attending Provider [phone] 10 Care Physician, No Primary Referring Provider Un available Dr. George Frausto Referring Provider [phone] Dr. George Frausto Primary Care Provider [phone] Dr. Christian Doty Attending Provider [phone] Dr. Christian Doty Referring Provider [phone] Jose Luis, Dr. Jenkins Attending Provider [phone] Olehomer, Dr. Jenkins Other Provider [phone] Jose Luis, Dr. Jenkins Attending Provider [phone] Jose Luis, Dr. Jenkins Other Provider [phone] Dr. George Frausto Primary Care Provider [phone] Dr. George Frausto Referring Provider Dr. Christian Doty Attending Provider [phone] Jose Luis, Dr. Jenkins Attending Provider [phone] Olehomer, Dr. Jenkins Other Provider [phone] Dr. George Frausto Primary Care Provider Jose Luis, Dr. Jenkins Attending Provider [phone] Oleghmira, Dr. Jenkins Other Provider [phone] Dr. George Frausto Primary Care Provider [phone] Jose Luis, Dr. Jenkins Attending Provider [phone] Olehomer, Dr. Jenkins Other Provider [phone] Dr. George Frausto Primary Care Provider [phone] Jose Luis, Dr. Jenkins Attending Provider [phone] Olehomer, Dr. Jenkins Other Provider [phone] Dr. George Frausto Primary Care Provider Jose Luis, Dr. Jenkins Attending Provider [phone] Jose Luis, Dr. Jenkins Other Provider [phone] Dr. George Frausto Primary Care Provider Jose Luis, Dr. Jenkins Attending Provider [phone] Jose Luis, Dr. Jenkins Other Provider [phone] Dr. Navarro Fraustoe Primary Care Provider Jose Luis, Dr. Jenkins Attending Provider [phone] Jose Luis, Dr. Jenkins Other Provider [phone] Jett, Dr. Vazquez Primary Care Provider Jett, Dr. Vazquez Referring Provider [phone] Jose Luis, Dr. Jenkins Attending Provider [phone] Jose Luis, Dr. Jenkins Other Provider [phone] Jett, Dr. Vazquez Primary Care Provider Jose Luis, Dr. Jenkins Attending Provider [phone] Jose Luis, Dr. Jenkins Other Provider [phone] Jett, Dr. Vazquez Primary Care Provider Jett, Dr. Vazquez Referring Provider [phone] Jose Luis, Dr. Jenkins Attending Provider [phone] Jose Luis, Dr. Jenkins Other Provider [phone] Jett, Dr. Vazquez Primary Care Provider Jett LOVE, Arvind Avalos Primary Care Provider [employer] SUPERVISOR.SUPERVISOR CHANNEL PROCESS, Bhavana Unavailable Jose Luis LOVE, Dr. Jenkins Attending Provider [phone] Jose Luis LOVE, Dr. Jenkins Other Provider [phone] Jett LOVE, Dr. Vazquez Primary Care Provider Jett LOVE, Dr. Vazquez Referring Provider Soren LOVE, Dr. Gonzales Attending Provider [phone] Jose Luis LOVE, Dr. Jenkins Referring Provider [phone] Odalys Hummel Attending Provider Inga LOVE, Dr. Bruno Rich Referring Provider Jett LOVE, Dr. Vazquez Primary Care Provider Jose Luis LOVE, Dr. Jenkins Attending Provider [phone] Jett LOVE, Dr. Vazquez Referring Provider Jose Luis LOVE, Dr. Jenkins Other Provider [phone] Soren LOVE, Dr. Gonzales Referring Provider [phone]) Soren LOVE, Dr. Gonzales Other Provider 1(330) Jett LOVE, Dr. Vazquez Primary Care Provider Soren LOVE, Dr. Gonzales Attending Provider [phone]) Jose Luis LOVE, Dr. Jenkins Attending Provider [phone] Jose Luis LOVE, Dr. Jenkins Other Provider [phone] Jett LOVE, Dr. Vazquez Primary Care Provider Jett LOVE, Dr. Vazquez Referring Provider Odalys Hummel Referring Provider [phone] Odalys Hummel Attending Provider [phone] Jim [employer]CHO[employer] CR[employer]ING GUARD SUPERVISOR.SUPERVISOR CHANNEL PROCESS, Marissa Unavailable PODLOGAR, BHAVANA Referring Unavailable BURSLEY, CHRISTOPHER B Primary Care Unavailab le PODLOGAR, BHAVANA Attending Unavailable BURSLEY, CHRISTOPHER B Primary Care Unavailab le PODLOGAR, BHAVANA Referring Unavailable BURSLEY, CHRISTOPHER B Primary Care Unavailab le PODLOGAR, BHAVANA Attending Unavailable BURSLEY, CHRISTOPHER B Primary Care Unavailab le Bursley, George Primary Care Unavailable Bursley, George Referring Unavailable Oleghe, Efewongbe Attending Unavailable Oleghe, Efewongbe Attending Unavailable Bursley, George Primary Care Unavailable Bursley, George Referring Unavailable Bursley, George Referring Unavailable Bursley, George Primary Care Unavailable Oleghe, Efewongbe Attending Unavailable Bursley, George Primary Care Unavailable Bursley, George Referring Unavailable Oleghe, Efewongbe Attending Unavailable Oleghe, Efewongbe Attending Unavailable Bursley, George Primary Care Unavailable Bursley, George Referring Unavailable Bursley, George Primary Care Unavailable Bursley, George Referring Unavailable Oleghe, Efewongbe Attending Unavailable Christian Doty Referring Unavailable Christian Doty Attending Unavailable Bursley, George Primary Care Unavailable Odalys Dior Attending Unavailable Bursley, George Primary Care Unavailable Oleghe, Efewongbe Consulting Unavailable Bursley, George Primary Care Unavailable Oleghe, Efewongbe Attending Unavailable Bursley, George Referring Unavailable Bursley, George Referring Unavailable Oleghe, Efewongbe Consulting Unavailable Bursley, George Primary Care Unavailable Oleghe, Efewongbe Attending Unavailable Bursley, George Referring Unavailable Oleghe, Efewongbe Consulting Unavailable Oleghe, Efewongbe Attending Unavailable Bursley, George Primary Care Unavailable Bursley, George Primary Care Unavailable Oleghe, Efewongbe Attending Unavailable Bursley, George Referring Unavailable Bursley, George Primary Care Unavailable Bursley, George Referring Unavailable Oleghe, Efewongbe Attending Unavailable Bursley, George Referring Unavailable Oleghe, Efewongbe Attending Unavailable Bursley, George Primary Care Unavailable Bursley, George Primary Care Unavailable Bursley, George Referring Unavailable Oleghe, Efewongbe Attending Unavailable Bursley, George Primary Care Unavailable Oleghe, Efewongbe Attending Unavailable Bursley, George Referring Unavailable Bursley, George Primary Care Unavailable Oleghe, Efewongbe Attending Unavailable Bursley, George Referring Unavailable Bursley, George Primary Care Unavailable Oleghe, Efewongbe Consulting Unavailable Bursley, George Referring Unavailable Oleghe, Efewongbe Attending Unavailable Bursley, George Primary Care Unavailable Oleghe, Efewongbe Consulting Unavailable Bursley, George Referring Unavailable Oleghe, Efewongbe Attending Unavailable Oleghe, Efewongbe Consulting Unavailable Bursley, George Referring Unavailable Bursley, George Primary Care Unavailable Oleghe, Efewongbe Attending Unavailable Bursley, George Primary Care Unavailable Oleghe, Efewongbe Attending Unavailable Oleghe, Efewongbe Consulting Unavailable Bursley, George Referring Unavailable Bursley, George Referring Unavailable Bursley, George Primary Care Unavailable Oleghe, Efewongbe Attending Unavailable Bursley, George Referring Unavailable Oleghe, Efewongbe Consulting Unavailable Oleghe, Efewongbe Attending Unavailable Bursley, George Primary Care Unavailable Bursley, George Primary Care Unavailable Oleghe, Efewongbe Consulting Unavailable Bursley, George Referring Unavailable Oleghe, Efewongbe Attending Unavailable Bursley, George Primary Care Unavailable Oleghe, Efewongbe Consulting Unavailable Bursley, George Referring Unavailable Oleghe, Efewongbe Attending Unavailable Bursley, George Referring Unavailable Oleghe, Efewongbe Consulting Unavailable Oleghe, Efewongbe Attending Unavailable Bursley, George Primary Care Unavailable Bursley, George Primary Care Unavailable Bursley, George Referring Unavailable Oleghe, Efewongbe Consulting Unavailable Oleghe, Efewongbe Attending Unavailable Bursley, George Referring Unavailable Oleghe, Efewongbe Consulting Unavailable Bursley, George Primary Care Unavailable Oleghe, Efewongbe Attending Unavailable Bursley, George Primary Care Unavailable Bursley, George Referring Unavailable Oleghe, Efewongbe Consulting Unavailable Oleghe, Efewongbe Attending Unavailable Bursley, George Referring Unavailable Oleghe, Efewongbe Consulting Unavailable Bursley, George Primary Care Unavailable Oleghe, Efewongbe Attending Unavailable Bursley, George Primary Care Unavailable Oleghe, Efewongbe Attending Unavailable Oleghe, Efewongbe Consulting Unavailable Bursley, George Referring Unavailable Bursley, George Primary Care Unavailable Oleghe, Efewongbe Attending Unavailable Oleghe, Efewongbe Consulting Unavailable Bursley, George Referring Unavailable DiorOdalys hagen Attending Unavailable Bursley, George Primary Care Unavailable Bursley, George Referring Unavailable Bursley, George Primary Care Unavailable Kevin Diorison Attending Unavailable Bruno Xiong Referring Unavailable Bursley, George Primary Care Unavailable Christian Doty Attending Unavailable Bursley, George Referring Unavailable Oleghe, Efewongbe Attending Unavailable Oleghe, Efewongbe Consulting Unavailable Bursley, George Primary Care Unavailable Bursley, George Referring Unavailable Oleghe, Efewongbe Consulting Unavailable Oleghe, Efewongbe Attending Unavailable Bursley, George Primary Care Unavailable Bursley, George Referring Unavailable Bursley, George Primary Care Unavailable Soren, Christian Attending Unavailable Oleghe, Efewongbe Referring Unavailable DiorOdalys hagen Referring Unavailable [place]ocorua, Christian Attending Unavailable Bursley, George Primary Care Unavailable Oleghe, Efewongbe Consulting Unavailable Bursley, George Primary Care Unavailable Oleghe, Efewongbe Attending Unavailable Bursley, George Referring Unavailable Soren, Christian Referring Unavailable [place]orua, Christian Consulting Unavailable [place], Christian Attending Unavailable Bursley, George Primary Care Unavailable Oleghe, Efewongbe Consulting Unavailable Bursley, George Primary Care Unavailable Oleghe, Efewongbe Attending Unavailable Bursley, George Referring Unavailable Oleghe, Efewongbe Consulting Unavailable Bursley, George Primary Care Unavailable Oleghe, Efewongbe Attending Unavailable Bursley, George Referring Unavailable Bursley, George Referring Unavailable Oleghe, Efewongbe Consulting Unavailable Oleghe, Efewongbe Attending Unavailable Bursley, George Primary Care Unavailable Oleghe, Efewongbe Consulting Unavailable Oleghe, Efewongbe Attending Unavailable Bursley, George Primary Care Unavailable Bursley, George Referring Unavailable [place]ocorua, Christian Attending Unavailable Soren, Christian Referring Unavailable Bursley, George Primary Care Unavailable Allergies Allergy Classification Reported Allergen(s) Allergy Type Date of Onset Reaction(s) Facility Quinolones (antibiotic) (2 sources) Ciprofloxacin Drug Allergy 07-02-2020 [facility] (1 source) Penicillins Drug allergy (disorder) [facility] (1 source) Piperacillin / tazobactam Drug Allergy [facility] (20 sources) Ciprofloxacin; Translations: [CIPROFLOXACIN] Drug Allergy 07-02-2020 [facility] (20 sources) Ciprofloxacin; Translations: [ciprofloxacin HCl] Drug Allergy 07-18-2021 [facility] (1 source) Ciprofloxacin Drug Allergy 04-14-2025 [facility] Repository Medications Current Medications Medication Drug Class(es) Dates Sig (Normalized) Sig (Original) ascorbic acid 100 mg oral tablet (20 sources) Vitamin C take 1 tablet by mouth once daily Ascorbic Acid (VITAMIN C) 100 mg tablet Take 100 mg by mouth once daily. Active Comment on above: Take 100 mg by mouth once daily. aspirin 81 mg chewable tablet (20 sources) Platelet Aggregation Inhibitor, Nonsteroidal Anti-inflammatory Drug Start: 07-04-2018 take 1 tablet by mouth once daily Aspirin 81 MG tablet,chewable Active 81 mg PO DAILY@0800 July 04, 2018 12:00am HEALTH take 1 tablet by mouth once justo y aspirin, enteric coated (ASPIRIN, ENTERIC COATED) 81 mg EC tablet Take 81 mg by mouth once daily. Active Comment on above: Take 81 mg by mouth once daily. atorvastatin 20 mg oral tablet (20 sources) HMG-CoA Reductase Inhibitor Start: 07-18-20 End: 06-13-20 take 1 tablet by mouth once daily at bedtime for hyperlipidemia atorvastatin (LIPITOR) 20 mg tablet Indications: Hyperlipidemia, mixed Take 1 tablet by mouth daily at bedtime. For cholesterol. 90 tablet 1 12/15/2024 06/13/2025 Active Comment on above: Take 1 tablet by adrianne th daily at bedtime. For cholesterol. calcium phosphate dibas/vit D3 (VITAMIN D, WITH CALCIUM, ORAL) (20 sources) calcium phosphat e dibas/vit D3 (VITAMIN D, WITH CALCIUM, ORAL) Take by mouth. Active calcium phosphat e dibas/vit D3 (VITAMIN D, WITH CALCIUM, ORAL) Take by mouth. 0 Active Comment on above: Take by mouth. fluconazole 150 mg oral tablet (11 sources) Azole Antifungal Start: 05-08-2025 fluconazole (DIFLUCAN) 150 mg tablet Take two tablets once weekly for two weeks 4 tablet 05/08/2025 Active Start: 04-09-2024 End: 11-07-2024 fluconazole (DIFLUCAN) 150 m g tablet Indications: Tinea versicolor Take two tablets once a week for two weeks 4 tablet 04/09/2024 11/07/2024 Discontinued (Course of therapy completed) Start: 05-04-2023 End: 05-12-2023 take 2 tablets by mouth every week fluconazole (DIFLUCAN) 150 mg tablet Take 2 tablets by mouth one time a week for 2 doses. 4 tablet 0 05/04/2023 05/12/2023 Active Start: 10-28-2022 End: 11-11-2022 take 2 tablets by mouth every week fluconazole (DIFLUCAN) 150 mg tablet Indications: Tinea versicolor Take 2 tablets by mouth one time a week for 14 days. 4 tablet 0 10/28/2022 11/11/2022 Active Start: 03-17-2022 End: 03-31-2022 take 2 tablets by mouth every week fluconazole (DIFLUCAN) 150 mg tablet Indications: Tinea versicolor Take 2 tablets by mouth one time a week for 14 days. 4 tablet 0 03/17/2022 03/31/2022 Active Comment on above: Take 2 tablets by mo uth one time a week for 14 days. Take 2 tablets by mo uth one time a week for 2 doses. Take 2 tablets by mo uth one time a week for 2 doses. Repeat in 3 days as needed. hydroCHLOROthiazide 25 mg oral tablet (20 sources) Thiazide Diuretic Start: 2020 End: 2024 take 1 tablet by mouth once daily hydroCHLOROthiazide 25 mg tablet Indications: Essential hypertension Take 1 tablet by mouth once daily. 90 tablet 1 12/15/2024 06/13/2025 Active Comment on above: Take 1 tablet by adrianne once daily. vitamin e 100 unt oral capsule (20 sources) take 1 capsule by mouth once daily Vitamin E, dl, acetate, (VITAMIN E) 100 unit capsule Take 100 Units by mouth once daily. Active Comment on above: Take 100 Units by mo [facility] once daily. Zinc (20 sources) Start: 2019 take 1 tablet by mouth once daily Zinc 50 mg tab Take 1 tablet by mouth once daily. 07/02/2020 Active Start: 07-02-2020 take 1 tablet by adrianne once daily Zinc 50 mg tab Take 1 tablet by mouth once daily. 0 07/02/2020 Active Comment on above: Take 1 tablet by adrianne once daily. Completed/Discontinued Medications Medication Drug Class(es) Dates Sig (Normalized) Sig (Original) acetaminophen 325 mg / oxyCODONE hydrochloride 5 mg oral tablet (20 sources) Opioid Agonist Start: 08-09-2017 End: 07-04-2018 Oxycodone-Acetamino phen 1 TABLET tablet Discontinued 1 - 2 {tbl} PO EVERY 6 HOURS NEEDED as needed for Pain August 09, 2017 12:00am July 04, 2018 10:04am Start: 08-09-2017 End: 07-04-2018 take 1 tablet by mouth every six hours as needed Oxycodone-Acetaminophen Discontinued 1 - 2 TABLET PO EVERY 6 HOURS NEEDED August 09, 2017 12:00am July 04, 2018 10:04am Start: 03-10-2014 End: 07-28-2015 Oxycodone-Acetaminophen 1 TA BLET tablet Discontinued 1 - 2 {tbl} PO EVERY 6 HOURS NEEDED as needed for Pain March 10, 2014 12:00am July 28, 2015 3:12pm Start: 03-10-2014 End: 07-28-2015 take 1 tablet by mouth every six hours as needed Oxycodone-Acetaminophen Discontinued 1 - 2 TABLET PO EVERY 6 HOURS NEEDED March 10, 2014 12:00am July 28, 2015 3:12pm amoxicillin 875 mg / clavulanate 125 mg oral tablet (13 sources) Penicillin-class Antibacterial Start: 06-25-2023 End: 10-20-2024 Amoxicillin-Pot Clavulanate 875-125 mg tablet Discontinued 1 {tbl} PO Q12H 14 June 25, 2023 12:00am October 20, 2024 2:40pm Start: 06-25-2023 take 1 tablet by adrianne th every twelve hours Amoxicillin-Pot Clavulanate Active 1 TABLET PO Q12H June 25, 2023 12:00am Start: 06-21-2022 take 1 tablet by adrianne th twice daily Amoxicillin-Pot Clavulanate Active 1 TABLET PO TWICE A DAY June 21, 2022 12:00am Aspirin, Baby (20 sources) Start: 10-07-2013 End: 07-04-2018 take 81 mg by mouth once daily Aspirin, Baby Discontinued 81 MG PO DAILY October 07, 2013 10:08am July 04, 2018 10:04am Start: 10-07-2013 End: 07-04-2018 take 81 mg by mouth once daily Aspirin, Baby Discontin ued 81 mg PO DAILY October 07, 2013 1:00am July 04, 2018 10:04am Start: 10-07-2013 End: 07-04-2018 take 81 mg by mouth once daily Aspirin, Baby Discontin ued 81 MG PO DAILY October 07, 2013 12:00am July 04, 2018 9:04am Start: 10-07-2013 End: 07-04-2018 take 81 mg by mouth once daily Aspirin, Baby Discontin ued 81 MG PO DAILY October 07, 2013 1:00am July 04, 2018 10:04am cefdinir 300 mg oral capsule (6 sources) Cephalosporin Antibacterial Start: 10-20-2024 End: 12-04-2024 take 1 capsule by mouth every twelve hours Cefdinir 300 mg capsule Discontinued 300 mg PO Q12H 20 0 October 20, 2024 1:00am December 04, 2024 9:34am cephalexin 500 mg oral capsule (20 sources) Cephalosporin Antibacterial Start: 07-20-2021 End: 06-13-2022 take 1 capsule by mouth every six hours Cephalexin 500 mg Capsule Discontinued 500 mg PO EVERY 6 HOURS 28 7 0 July 20, 2021 12:00am June 13, 2022 10:22am doxycycline monohydrate 100 mg oral tablet (7 sources) Tetracycline-class Drug Start: 09-01-2024 End: 12-04-2024 take 1 tablet by mouth once daily Doxycycline Monohydrate 100 mg tablet Discontinued 100 mg PO daily 20 0 September 01, 2024 1:00am December 04, 2024 9:34am Start: 01-19-2024 End: 01-29-2024 take 1 tablet by mouth twice daily doxycycline (VIBRA-TABS) 100 mg tablet Take 1 tablet by mouth two times a day for 10 days. 20 tablet 0 01/19/2024 01/29/2024 Active Comment on above: Take 1 tablet by adrianne th two times a day for 10 days. ibuprofen 200 mg oral tablet (20 sources) Nonsteroidal Anti-inflammatory Drug Start: End: take 2 tablets by mouth every six hours as needed for pain Ibuprofen 200 MG tablet Discontinued 400 mg PO EVERY 6 HOURS NEEDED as needed for Pain July 04, 2018 12:00am December 04, 2024 9:34am Start: 07-04-2018 take 400 mg by mouth every six hours as needed Ibuprofen Active 400 MG PO EVERY 6 HOURS NEEDED July 04, 2018 12:00am 24 hr metoprolol succinate 50 mg extended release oral tablet (20 sources) beta-Adrenergic Chito Start: 10-07-2013 End: 07-28-2015 take 1 tablet by mouth once daily Metoprolol Succinate 50 MG tablet Discontinued 50 mg PO DAILY October 07, 2013 1:00am July 28, 2015 3:12pm metroNIDAZOLE 500 mg oral tablet (6 sources) Nitroimidazole Antimicrobial Start: 10-21-2024 End: 10-28-2024 take 1 tablet by mouth three times daily Metronidazole 500 mg tablet Discontinued 500 mg PO THREE TIMES A DAY 21 7 0 October 21, 2024 1:00am October 27, 2024 1:00am October 28, 2024 1:10am mupirocin 0.02 mg/mg topical ointment (7 sources) RNA Synthetase Inhibitor Antibacterial Start: 02-04-2024 End: 12-04-2024 Mupirocin 2 % ointment Discontinued 1 NMA TOPICAL DAILY 22 February 04, 2024 12:00am December 04, 2024 9:34am predniSONE 10 mg oral tablet (2 sources) Start: 01-19-2024 End: 04-08-2024 predniSONE (DELTASONE) 10 mg tablet Take 4 tabs daily for 3 days, then 2 tabs daily for 3 days, then 1 tab daily for 3 days with food. 21 tablet 0 01/19/2024 04/08/2024 Discontinued Comment on above: Take 4 tabs daily fo r 3 days, then 2 tabs daily for 3 days, then 1 tab daily for 3 days with food. Problems Active Problems Problem Classification Problem Date Documented Date Episodic/Chronic Chronic ulcer of skin (20 sources) Ankle ulcer; Translations: [Non-pressure chronic ulcer of unspecified ankle with unspecified severity] Onset: 5 Chronic Diabetes mellitus without complication (20 sources) Hyperglycemia; Translations: [Hyperglycemia, unspecified] Onset: 1 12-27-2020 Episodic Disorders of lipid metabolism (20 sources) Mixed hyperlipidemia; Translations: [Mixed hyperlipidemia] Onset: 1 12-27-2020 Chronic Essential hypertension (20 sources) Hypertensive disorder; Translations: [Essential (primary) hypertension] Onset: 5 07-02-2020 Chronic Nutritional deficiencies (20 sources) Nutritional disorder; Translations: [Unspecified protein-calorie malnutrition] 07-03-2019 Chronic Other aftercare (5 sources) Surgical follow-up; Translations: [Encounter for surgical aftercare following surgery on the circulatory system] 02-20-2025 Episodic Other aftercare (1 source) Encounter for surgical aftercare following surgery on the circulatory system; Translations: [Encounter for surgical aftercare following surgery on the circulatory system] Onset: 5 Episodic Other circulatory disease (20 sources) History of peripheral vascular disease; Translations: [Personal history of other diseases of the circulatory system] 07-18-2021 Episodic Other connective tissue disease (20 sources) Pain in lower limb; Translations: [Pain in unspecified lower leg] 04-10-2019 Episodic Other connective tissue disease (20 sources) Swelling of lower limb; Translations: [Other specified soft tissue disorders] 04-10-2019 Episodic Other connective tissue disease (20 sources) Pain in left lower limb; Translations: [Pain in left leg] 08-05-2020 Episodic Other connective tissue disease (2 sources) Pain in unspecified lower leg; Translations: [Pain in unspecified lower leg] Onset: 5 Episodic Other diseases of veins and lymphatics (20 sources) Lymphangitis; Translations: [Lymphangitis] 07-18-2021 Chronic Other diseases of veins and lymphatics (20 sources) Chronic peripheral venous hypertension; Translations: [Chronic venous hypertension (idiopathic) with ulcer and inflammation of unspecified lower extremity] 08-05-2020 Chronic Other diseases of veins and lymphatics (5 sources) Chronic venous hypertension (idiopathic) with ulcer of unspecified lower extremity; Translations: [Chronic venous hypertension with ulcer] Chronic Other diseases of veins and lymphatics (1 source) Chronic venous hypertension (idiopathic) with ulcer of left lower extremity; Translations: [Chronic venous hypertension (idiopathic) with ulcer of left lower extremity] Onset: 5 Chronic Other diseases of veins and lymphatics (20 sources) Peripheral venous insufficiency; Translations: [Venous insufficiency (chronic) (peripheral)] 08-05-2020 Episodic Other diseases of veins and lymphatics (20 sources) Disorder of vein of lower extremity; Translations: [Other specified disorders of veins] 10-12-2022 Episodic Comment on above: Reflux- right SSV, l eft ASV and SSV Other diseases of veins and lymphatics (20 sources) Venous insufficiency (chronic) (peripheral); Translations: [Venous (peripheral) insufficiency, unspecified] Onset: 5 Episodic Other diseases of veins and lymphatics (17 sources) Other specified disorders of veins; Translations: [Venous (peripheral) insufficiency, unspecified] Onset: 5 Episodic Other injuries and conditions due to external causes (20 sources) Local infection of wound; Translations: [Other injury of unspecified body region, initial encounter] 04-10-2019 Episodic Other injuries and conditions due to external causes (20 sources) Delayed healing of wound; Translations: [Other injury of unspecified body region, subsequent encounter] 09-30-2020 Episodic Other injuries and conditions due to external causes (20 sources) Other injury of unspecified body region, subsequent encounter; Translations: [Open wound(s) (multiple) of unspecified site(s), complicated] Onset: 5 Episodic Other nutritional; endocrine; and metabolic disorders (20 sources) Obese class II; Translations: [Obesity, unspecified] Onset: 1 12-27-2020 Chronic Other nutritional; endocrine; and metabolic disorders (19 sources) Obesity; Translations: [Obesity, unspecified] Onset: 1 10-28-2022 Chronic Other nutritional; endocrine; and metabolic disorders (2 sources) Body mass index 40+ - severely obese; Translations: [Obesity, Class III, BMI 40-49.9 (morbid obesity) (HCC)] Onset: 5 05-08-2025 Chronic Other screening for suspected conditions (not mental disorders or infectious disease) (8 sources) Patient encounter status; Translations: [Encounter for screening for malignant neoplasm of colon] Onset: 5 Episodic Other skin disorders (1 source) Eruption; Translations: [Rash and other nonspecific skin eruption] 01-19-2024 Episodic Peripheral and visceral atherosclerosis (20 sources) Peripheral vascular disease; Translations: [Peripheral vascular disease, unspecified] Onset: 2 Chronic Residual codes; unclassified (20 sources) Edema of lower extremity; Translations: [Localized edema] 04-10-2019 Episodic Residual codes; unclassified (20 sources) Noncompliance with treatment; Translations: [Patient's noncompliance with other medical treatment and regimen] 07-03-2019 Episodic Residual codes; unclassified (20 sources) Tobacco user; Translations: [Tobacco use] 04-10-2019 Episodic Residual codes; unclassified (2 sources) Localized edema; Translations: [Localized edema] Onset: 5 Episodic Screening and history of mental health and substance abuse codes (2 sources) Tobacco use and exposure - finding; Translations: [Personal history of nicotine dependence] Onset: 5 05-08-2025 Episodic Skin and subcutaneous tissue infections (20 sources) Cellulitis of lower limb; Translations: [Cellulitis of left lower limb] 07-18-2021 Episodic Substance-related disorders (20 sources) Smoker; Translations: [Nicotine dependence, unspecified, uncomplicated] 07-03-2019 Chronic Unclassified (1 source) CONTACT WITH AND SUSPECTED EXPOSURE TO COVID-19; Translations: [CONTACT WITH AND SUSPECTED EXPOSURE TO COVID-19] Onset: 1 Unclassified (1 source) Obesity, Class III, BMI 40-49.9 (morbid obesity) (HCC); Translations: [Obesity, Class III, BMI 40-49.9 (morbid obesity) (HCC)] Onset: 5 Unclassified (1 source) Obesity, Class II, BMI 35-39.9; Translations: [Obesity, Class II, BMI 35-39.9] Onset: 3 Varicose veins of lower extremity (20 sources) Varicose veins of lower extremity with ulcer AND inflammation; Translations: [Varicose veins of unspecified lower extremity with both ulcer of unspecified site and inflammation] Onset: 5 07-01-2020 Episodic Comment on above: Venous duplex- Inter pretation SummaryDeep veins of the bilateral lower extremities are patent and compressible segmentally. There is noevidence of bilateral lower extremity deep vein thrombosis.Positive for reflux in the right common femoral vein, femoral vein, popliteal vein, small saphenousvein.Positive for reflux in the left common femoral vein, femoral vein, popliteal vein, saphenofemoraljunction, accessory saphenous vein in thigh, accessory saphenous vein in the calf, multiple medialcalf perforators, small saphenous vein. Viral infection (1 source) COVID-19; Translations: [COVID-19] Onset: 1 Past or Other Problems Problem Classification Problem Date Documented Da te Episodic/Chronic Disorders of teeth and jaw (20 sources) Periodontal disease; Translations: [Periodontal disease, unspecified] Onset: 10-28-2022 Episodic Mycoses (20 sources) Pityriasis versicolor; Translations: [Pityriasis versicolor] Onset: 10-28-2022 Episodic Open wounds of extremities (20 sources) Disorder of lower extremity; Translations: [Unspecified open wound, left lower leg, sequela] Onset: 10-28-2022 Episodic Open wounds of extremities (20 sources) Injury of lower extremity; Translations: [Unspecified open wound, right lower leg, subsequent encounter] Onset: 10-28-2022 Episodic Other nutritional; endocrine; and metabolic disorders (8 sources) Body mass index 25-29 - overweight; Translations: [Overweight] Resolved: 07-01-2021 07-01-2021 Episodic Unclassified (1 source) CONTACT WITH AND SUSPECTED EXPOSURE TO COVID-19; Translations: [CONTACT WITH AND SUSPECTED EXPOSURE TO COVID-19] Onset: 08-08-2021 Results Test Name Value Interpretation Reference Range Facility [facility] 05-08-2025 CNOV Office Visit (FAMLiborioWS ) -- RUBEN ALLEN ([id number]) 1965 M Date Time Provider Department 05/08/25 7:40 AM BHAVANA ROSALES During your visit today, we recorded the following information about you: Pulse Respiration Blood pressure Weight 76/minute 14/minute 134/76 120.7 kg Bhavana Rosales APRN.SUPERVISOR CHANNEL PROCESS 05/08/2025 8:22 AM Addendum 05/08/2025 Patient presents with: 6 Month Exam Recording using [employer] software for draft documentation of the visit was discussed with the patient/authorized lead customer service representative; all questions welcomed and answered. Patient/authorized lead customer service representative agreed to proceed SUBJECTIVE: This is a 59 year old that is here today for Above Complaints. Chronic Venous Insufficiency: - Undergoing treatment with foam injections in both lower extremities to improve circulation. - Treatment performed by a vascular specialist at [facility] every two weeks. - Noted enlargement and slight infection in the wound post-treatment; no antibiotics prescribed. - Ruben has been dealing with this condition for approximately 25 years. Recurrent Rash: - Rash located on the chest and arms - Previously treated with fluconazole without significant improvement. - Effective treatment in the past was provided by Dr. Frausto. Hypertension: - Managed with hydrochlorothiazide 25 mg daily. - Blood pressure readings are taken at medical appointments; Ruben does not monitor at home. - Denies chest pain or dyspnea. Hyperlipidemia: - Managed with atorvastatin 20 mg daily. - Adheres to a low-cholesterol diet hardly at all. 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 - Weight has increased since October. - Former smoker, quit approximately 8 years ago after smoking intermittently since age 16. - Consumes grapes as snacks regularly. PAST MEDICAL HISTORY Diagnosis Date Dental caries History of tobacco use Hypertension Obesity Periodontal disease PVD (peripheral vascular disease) [facility] Vascular Wound of left leg wound center [facility], not healing since 2018 ALLERGIES Ciprofloxacin MEDICATIONS Current Outpatient Medications Medication Sig atorvastatin (LIPITOR) 20 mg tablet Take 1 tablet by mouth daily at bedtime. For cholesterol. hydroCHLOROthiazide 25 mg tablet Take 1 tablet by mouth once daily. aspirin, enteric coated (ASPIRIN, ENTERIC COATED) 81 mg EC tablet Take 81 mg by mouth once daily. Ascorbic Acid (VITAMIN C) 100 mg tablet Take 100 mg by mouth once daily. calcium phosphate dibas/vit D3 (VITAMIN D, WITH CALCIUM, ORAL) Take by mouth. Vitamin E, dl, acetate, (VITAMIN E) 100 unit capsule Take 100 Units by mouth once daily. Zinc 50 mg tab Take 1 tablet by mouth once daily. fluconazole (DIFLUCAN) 150 mg tablet Take two tablets once weekly for two weeks No current facility-administered medications for this visit. Medications and allergies reviewed by this provider. SOCIAL HISTORY Social History Tobacco Use Smoking status: Former Current packs/day: 0.00 Average packs/day: 1 pack/day for 38.0 years (38.0 ttl pk-yrs) Types: Cigarettes Start date: 08/01/1981 Quit date: 08/01/2019 Years since quittin.7 Smokeless tobacco: Former Types: Chew Quit date: 07/02/2000 Vaping Use Vaping status: Never Used Substance Use Topics Alcohol use: Yes Alcohol/week: 2.0 standard drinks of alcohol Types: 2 Cans of Beer (12oz) per week Drug use: Never REVIEW OF SYSTEMS All other reviewed and negative other than HPI. OBJECTIVE: BP 134/76 Pulse 76 Resp 14 Wt 120.7 kg (266 lb) BMI 40.45 kg/m? . Vital signs reviewed by this provider. GENERAL: NAD, alert and oriented. SKIN: Rash noted on chest and antecubital areas bilaterally consistent with tinea versicolor EYES: conjunctiva clear. LUNGS: Clear to auscultation bilaterally, no wheezes/rhonchi/rales. HEART: Regular rate and rhythm, no murmurs. No ectopy. EXTREMITIES: no edema. Latest Ref Rng 11/07/2024 WBC 3.70 - 11.00 k/uL 6.81 RBC 4.20 - 6.00 m/uL 5.13 Hemoglobin 13.0 - 17.0 g/dL 15.7 Hematocrit 39.0 - 51.0 % 46.8 MCV 80.0 - 100.0 fL 91.2 MCH 26.0 - 34.0 pg 30.6 MCHC 30.5 - 36.0 g/dL 33.5 RDW-CV 11.5 - 15.0 % 12.6 Platelet Count 150 - 400 k/uL 207 MPV 9.0 - 12.7 fL 11.7 Neut% % 47.6 Abs Neut (ANC) 1.45 - 7.50 k/uL 3.24 Lymph% % 35.5 Abs Lymph 1.00 - 4.00 k/uL 2.42 Canyon% % 13.7 Abs Canyon <0.87 k/uL 0.93 (H) Eosin% % 2.2 Abs Eosin <0.46 k/uL 0.15 Baso% % 0.7 Abs Baso <0.11 k/uL 0.05 Immature Gran % % 0.3 IMMATURE GRANS (ABS) <0.10 k/uL <0.03 NRBC /100 WBC 0.0 Absolute nRBC <0.01 k/uL <0.01 DTYPE Auto Protein, Total 6.3 - 8.0 g/dL 7.9 Albumin 3.9 - 4.9 g/dL 4.4 Calcium 8.5 - 10.2 mg/dL 9.4 Bilirubin, Total 0.2 - 1.3 mg/dL 0.4 Alkaline Phosphatase 38 - 113 U/L 100 AST 14 - 40 U/L 32 ALT 10 - 54 U/L 48 Glu (more content not included)... Normal [facility] Comprehensive metabolic 2000 panelon 05-08-2025 Albumin [Mass/Vol] 4.6 g/dL Normal 3.9-4.9 [facility] Comment on above: Order Comment: Speci men Type: BLOOD SPECIMEN Ordering Facility: [facility] Address: [address] [place] [address] Performed By: #### 2 4323-8 #### [facility] CLIA [id number] [address] [place] [address] [place] ALP [Catalytic activity/Vol] 89 U/L Normal 38-113 [facility] Comment on above: Order Comment: Speci men Type: BLOOD SPECIMEN Ordering Facility: [facility] Address: [address] [place] [address] Performed By: #### 2 4323-8 #### [facility] CLIA [id number] [address] [place] [address] [place] ALT [Catalytic activity/Vol] 60 U/L High 10-54 [facility] Comment on above: Order Comment: Speci men Type: BLOOD SPECIMEN Ordering Facility: [facility] Address: [address] [place] [address] Performed By: #### 2 4323-8 #### [facility] CLIA [id number] [address] [place] [address] [place] Anion gap [Moles/Vol] 14 mmol/L Normal 8-15 [facility] Comment on above: Order Comment: Speci men Type: BLOOD SPECIMEN Ordering Facility: [facility] Address: [address] [place] [address] Performed By: #### 2 4323-8 #### [facility] CLIA [id number] [address] [place] [address] [place] AST [Catalytic activity/Vol] 54 U/L High 14-40 [facility] Comment on above: Order Comment: Speci men Type: BLOOD SPECIMEN Ordering Facility: [facility] Address: [address] [place] [address] Performed By: #### 2 4323-8 #### [facility] CLIA [id number] [address] [place] [address] [place] Bilirubin [Mass/Vol] 0.5 mg/dL Normal 0.2-1.3 [facility] Comment on above: Order Comment: Speci men Type: BLOOD SPECIMEN Ordering Facility: [facility] Address: [address] [place] [address] Performed By: #### 2 4323-8 #### [facility] CLIA [id number] [address] [place] [address] [place] Calcium [Mass/Vol] 9.7 mg/dL Normal 8.5-10.2 [facility] Comment on above: Order Comment: Speci men Type: BLOOD SPECIMEN Ordering Facility: [facility] Address: [address] [place] [address] Performed By: #### 2 4323-8 #### [facility] CLIA [id number] [address] [place] [address] [place] Chloride [Moles/Vol] 101 mmol/L Normal 98-107 [facility] Comment on above: Order Comment: Speci men Type: BLOOD SPECIMEN Ordering Facility: [facility] Address: [address] [place] [address] Performed By: #### 2 4323-8 #### [facility] CLIA [id number] [address] [place] [address] [place] CO2 [Moles/Vol] 25 mmol/L Normal 22-30 [facility] Comment on above: Order Comment: Speci men Type: BLOOD SPECIMEN Ordering Facility: [facility] Address: [address] [place] [address] Performed By: #### 2 4323-8 #### [facility] CLIA [id number] [address] [place] [address] [place] Creatinine [Mass/Vol] 1.04 mg/dL Normal 0.73-1.22 [facility] Comment on above: Order Comment: Artur craven Type: BLOOD SPECIMEN Ordering Facility: [facility] Address: [address] [place] [address] Performed By: #### 2 4323-8 #### [facility] CLIA [id number] [address] [place] [address] [place] Creatinine and Glomerular filtration rate.predicted panel (S/P/Bld) 82 mL/min/1.73m??? Normal >=60 [facility] Comment on above: Order Comment: Artur craven Type: BLOOD SPECIMEN Ordering Facility: [facility] Address: [address] [place] [address] Result Comment: Rody mated Glomerular Filtration Rate (eGFR) is calculated using the 2020 CKD-EPI creatinine equation. This equation utilizes serum creatinine, sex, and age as parameters. The creatinine assay has traceable calibration to isotope dilution-mass spectrometry. Refer to KDIGO guidelines for clinical interpretation. In patients with unstable renal function, e.g. those with acute kidney injury, the eGFR may not accurately reflect actual GFR. Performed By: #### 2 4323-8 #### [facility] CLIA [id number] [address] [place] [address] [place] Glucose [Mass/Vol] 121 mg/dL High 74-99 [facility] Comment on above: Order Comment: Artur craven Type: BLOOD SPECIMEN Ordering Facility: [facility] Address: [address] [place] [address] Result Comment: The [place] Diabetes Association (ADA) provides guidance for cutoff values for fasting glucose and random glucose. The ADA defines fasting as no caloric intake for at least 8 hours. Fasting plasma glucose results between 100 to 125 mg/dL indicate increased risk for diabetes (prediabetes). Fasting plasma glucose results greater than or equal to 126 mg/dL meet the criteria for diagnosis of diabetes. In the absence of unequivocal hyperglycemia, results should be confirmed by repeat testing. In a patient with classic symptoms of hyperglycemia or hyperglycemic crisis, random plasma glucose results greater than or equal to 200 mg/dL meet the criteria for diagnosis of diabetes. Reference: Standards of Medical Care in Diabetes 2016, [place] Diabetes Association. Diabetes Care. 2016.39(Suppl 1). Performed By: #### 2 4323-8 #### [facility] CLIA [id number] [address] [place] [address] [place] Potassium [Moles/Vol] 3.7 mmol/L Normal 3.7-5.1 [facility] Comment on above: Order Comment: Speci men Type: BLOOD SPECIMEN Ordering Facility: [facility] Address: [address] [place] [address] Performed By: #### 2 4323-8 #### [facility] CLIA [id number] [address] [place] [address] [place] Protein [Mass/Vol] 7.7 g/dL Normal 6.3-8.0 [facility] Comment on above: Order Comment: Speci men Type: BLOOD SPECIMEN Ordering Facility: [facility] Address: [address] [place] [address] Performed By: #### 2 4323-8 #### [facility] CLIA [id number] [address] [place] [address] [place] Sodium [Moles/Vol] 140 mmol/L Normal 136-144 [facility] Comment on above: Order Comment: Speci men Type: BLOOD SPECIMEN Ordering Facility: [facility] Address: [address] [place] [address] Performed By: #### 2 4323-8 #### [facility] CLIA [id number] [address] [place], [place] [id number] [place] Urea nitrogen [Mass/Vol] 22 mg/dL Normal 9-24 [facility] Comment on above: Order Comment: Speci men Type: BLOOD SPECIMEN Ordering Facility: [facility] Address: [address] [place], [place] [id number] Performed By: #### 2 4323-8 #### [facility] CLIA [id number] [address] [place] [address] [place] HbA1c (Bld)on 05-08-2025 Average glucose Estimated from glycated hemoglobin (Bld) [Mass/Vol] 140 mg/dL Normal [facility] Comment on above: Order Comment: Artur craven Type: BLOOD SPECIMEN Ordering Facility: [facility] Address: [address] [place] [address] Result Comment: eAG: (Estimated average glucose) is a calculated value from HgbA1c and is lead customer service representative of the average blood glucose level in the last 2-3 month period. Performed By: #### 5 5454-3 #### [facility] CLIA [id number] [address] [place] [address] [place] HbA1c (Bld) [Mass fraction] 6.5 % High 4.3-5.6 [facility] Comment on above: Order Comment: Artur craven Type: BLOOD SPECIMEN Ordering Facility: [facility] Address: [address] [place] [address] Result Comment: [place] Diabetes Association guidelines indicate that patients with HgbA1c in the range 5.7-6.4% are at increased risk for development of diabetes, and intervention by lifestyle modification may be beneficial. HgbA1c greater or equal to 6.5% is considered diagnostic of diabetes. Performed By: #### 5 5454-3 #### [facility] CLIA [id number] [address] [place] [address] [place] Culture, Anaerobic Any Sourc morro 04-22-2025 CUAN List Antibiotics Las t 48 Hours? NONE List Antibiotics to be Started? NONE RIGHT #1 Anaerobic non-spore forming gram positive rods are usually SUSCEPTIBLE to Beta-lactams and Beta-lactamase inhibitors, Linezolid, and Daptomycin. They are usually RESISTANT to Metronidazole. Cutibacterium acnes Normal [facility] Comment on above: Performed By: #### M 100.4001, M100.3000, M100.2000 #### [facility] [address] [place], [address] Culture, Anaerobic Any Sourc morro 04-21-2025 CUAN List Antibiotics Las t 48 Hours? NONE List Antibiotics to be Started? NONE ANKLE Studies have confirmed that Anaerobic Gram Positive Cocci are routinely SUSCEPTABLE to Penicillin and generally susceptible to Beta-lactams and Beta-lactamase inhibitors, Cephalosporins, Carbapenems and Metronidazole. They are showing increased RESISTANCE to Clindamycin Anaerobic cocci Normal [facility] Comment on above: Performed By: #### M 100.3000, M1.1999, #### [facility] [address] [place], [address] Wound Cultureon 04-21-2025 WC List Antibiotics Las t 48 Hours? NONE List Antibiotics to be Started? NONE ANKLE #2 Clinical correlation necessary, Possible skin contamination. Serratia marcescens Amount Growth Rare Staphylococcus epidermidis Staphylococcus epidermidis * This is an amended result. * A prior result that was reported as final has been changed. 04/19/251744 by LAWRENCE Serratia marcescens: REACTION Cefepime Islt ODELL <=0.12 S cefTRIAXone Islt ODELL <=0.25 Ciprofloxacin Islt ODELL <=0.06 S Gentamicin Islt ODELL <=1 S levoFLOXacin Islt ODELL <=0.12 S Meropenem Islt ODELL <=0.25 S TMP SMX Islt ODELL <=20 S Staphylococcus epidermidis: REACTION cefOXitin Susc Islt POS Doxycycline Islt ODELL <=0.5 Clindamycin Islt ODELL 0.25 S Clindamycin.induced Susc Islt NEG Erythromycin Islt ODELL >=8 R Gentamicin Islt ODELL <=0.5 S Linezolid Islt ODELL 1 S Oxacillin Susc Islt >=4 R Tetracycline Islt ODELL 2 S TMP SMX Islt ODELL 160 R Vancomycin Islt ODELL 1 S Normal [facility] Comment on above: Performed By: #### M 100.3000, M1.1999, M100.4001 #### [facility] [address] [place], [address] Wound Cultureon 04-19-2025 List Antibiotics Las t 48 Hours? NONE List Antibiotics to be Started? NONE RIGHT #1 Gram positive anna suggestive of a diphtheroid. Susceptibility not normally performed on this organism #2 Clinical correlation necessary, Possible skin contamination. Wound Culture Wound Culture Corynebacterium minutissimum Amount Growth 1+ Staphylococcus epidermidis Staphylococcus epidermidis MORMOM Amount Growth Rare * This is an amended result. * A prior result that was reported as final has been changed. 04/19/25 1744 by LAWRENCE Staphylococcus epidermidis: REACTION cefOXitin Susc Islt POS Doxycycline Islt ODELL 1 S Clindamycin Islt ODELL 0.25 Clindamycin.induced Susc Islt NEG Erythromycin Islt ODELL >=8 R Gentamicin Islt ODELL <=0.5 S Linezolid Islt ODELL 1 S Oxacillin Susc Islt >=4 R Tetracycline Islt ODELL 2 S TMP SMX Islt ODELL 160 R Vancomycin Islt ODELL 1 S Morganella morganii sp morgani: REACTION Ampicillin Islt ODELL >=32 R Ampicillin+Sulbac Islt ODELL 16 I Ciprofloxacin Islt ODELL <=0.06 Gentamicin Islt ODELL <=1 S levoFLOXacin Islt ODELL <=0.12 S Meropenem Islt ODELL 0.5 S Pip+Tazo Islt ODELL <=4 S TMP SMX Islt ODELL <=20 S Normal [facility] Comment on above: Performed By: #### M 100.4001, M100.3000, M100.2000 #### [facility] [address] [facility] [address] [place], [place], [id number] Anaerobic cultureOrdered By: Alice Amaya on 04-16-2025 Bacteria identified Anaer cx Nom (Unsp spec) Cutibacterium acnes Abnormal [facility] Bacteria identified Anaer cx Nom (Unsp spec) Anaerobic cocci Abnormal [facility] Gram Stainon 04-16-2025 GS List Antibiotics Las t 48 Hours? NONE List Antibiotics to be Started? NONE ANKLE Gram Stain No organisms seen No cells seen Normal [facility] Comment on above: Performed By: #### M 100.3000, M100.2000, M100.4001 #### [facility] [address] [place], [address] GS List Antibiotics Las t 48 Hours? NONE List Antibiotics to be Started? NONE RIGHT Gram Stain No organisms seen No cells seen Normal [facility] [facility] Comment on above: Performed By: #### M 100.4001, M100.3000, M100.2000 #### [facility] [address] [place], [address] Gram stainOrdered By: Jorgito Amaya on 04-16-2025 Microscopic observation Gram stain Nom (Unsp spec) [facility] Microscopic observation Gram stain Nom (Unsp spec) [facility] Routine wound cultureOrdered By: Alice Amaya on 04-16-2025 Microbial culture, routine Corynebacterium minutissimum Abnormal [facility] Microbial culture, routine Staphylococcus epidermidis Abnormal [facility] Microbial culture, routine Morganella morganii sp morgani Abnormal [facility] Microbial culture, routine Staphylococcus epidermidis Abnormal [facility] MR/BMS.Sofía 04-14-2025 MR/BMS.BVS [facility] Surgery [address] [place] [address] OFFICE VISIT Date of Service: 04/14/25 MR#: [id number] Acct: [id number] Name: RUBEN ALLEN Jr. Rep #: [id number] : 1965 Provider: BENJI Lino Age/Sex: 59/M Location: [facility] Status: Signed Intake Vital Signs 07/31/22 07:07 02/19/25 13:19 03/25/25 07:30 04/14/25 13:58 Height 5 ft 9 in 5 ft 9 in 5 ft 9 in Weight: 264 lb BP 141/88 H Blood Pressure Location Lt brachial Position Sitting Respiration 16 Pulse 89 Pulse Source Monitor Temp 98.2 F Temp Source Temporal Pulse Oximetry (%) 96 Oxygen Delivery Method room air Intake Visit Reasons: Post Sclerotherapy 2-4 WK FU Chief Complaint: wounds Is patient in pain?: No Allergies ciprofloxacin (From Cipro) Allergy (Verified 04/14/25 13:59) Rash Medications ???Medication ???Instructions ???Recorded ???Confirmed ???Type aspirin 81 mg chewable tablet 81 mg PO DAILY@0800 HEALTH 8 04/14/25 History atorvastatin 20 mg tablet 20 mg PO QHS CHOLESTEROL 07/18/21 04/14/25 History hydrochlorothiazide 25 mg tablet 25 mg PO DAILY BP 07/18/21 5 History Have you fallen in the past year?: No PFSH Medical History MRSA infection Former smoker History of edema Ulcer of right lower extremity with fat layer exposed Stasis ulcer Family History Other CAD (coronary artery disease) CVA (cerebral vascular accident) Diabetes Heart disease Hypertension Social History Smoking Status: Former smoker Tobacco: How many years used: 21 HPI HPI HPI: RUBEN ALLEN, is a 59 M who presents to the office today for follow-up s/p foam ablation RLE varicosities on 03/25/25 performed secondary to chronic R medial malleolus venous ulceration. Post- intervention duplex on 04/02/25 was negative for any DVT/SVT and showed successful ablation. He reports he tolerated the procedure very well and has had no issues in recovery to this point. He has not noticed much improvement in his RLE wound to this point. His LLE wound has been fairly stagnant as well. He does continue to follow routinely with the wound care center. He is also scheduled for foam ablation of LLE varicosities due to LLE venous ulceration in April. ROS General General: No weight change, appetite, fatigue, colon cancer, breast cancer or weakness HEENT HEENT: No difficulty swallowing, eye injury, eye surgery, swollen glands or hoarseness Endo Endocrine: No thyroid disease, diabetes mellitus, thyroid cancer, Hair loss, heat intolerance or cold intolerance Skin Skin: Yes rash; No changing moles Musc Musculoskeletal: No back problems, arthritis, rheumatoid arthritis, gout or joint pain Cardio Cardiovascular: Yes high blood pressure; No murmur, pacemaker, heart disease, atrial fibrillation, heart attack, heart stent, palpitations, shortness of breath with exertion or chest pain Psych Psychiatric: No depression, anxiety or hearing voices Resp Respiratory: No shortness of breath, No sleep apnea, No cough, No COPD, No asthma, No emphysema and No wheezing Gastro Gastrointestinal: No abdominal pain, No nausea or vomiting, No diarrhea, No constipation, No blood in stool, No acid reflux, No hemorrhoids, No ulcers, No gallbladder problem and No black,tarry stools Robert Hematologic: Yes blood thinners, No blood disorders, No bleeding, No anemia and No blood clots Additional Details: asa Neuro Neurologic: No system reviewed and no additional complaints, except as documented, No as per HPI, No abnormal gait, No abnormal hearing, No abnormal movements, No abnormal speech, No behavioral changes, No burning sensations, No confusion, No convulsions, No disequilibrium, No dizziness, No localized weakness, No frequent falls, No headache(s), No lack of coordination, No loss of vision, No memory loss, No numbness, No other visual disturbances, No radicular pain, No restless legs, No sensory deficit, No syncope, No tingling, No tremor(s), No weakness and No other Exam Const General: cooperative, healthy appearing, comfortable, no acute distress and well developed Nutritional Appearance: well nourished Orientation: alert, awake and oriented x3 [facility] Head: normocephalic and atraumatic Ears: hearing grossly normal bilaterally Nose: external nose normal Eyes General: appearance normal, both eyes and all related structures EOM: EOM intact bilaterally Neck Neck: normal visual inspection, full ROM and trachea midline Resp Effort Inspection: normal respiratory effort, able to speak in complete sentences, symmetric chest movement, no audible wheezes, not lab (more content not included)... Normal [facility] Venous duplex ultrasound rep ortOrdered By: Christian Doty on 04-02-2025 US Vein [facility] [place] [address] Venous Duplex US, Unilateral 03/30/25 0804 MR#: [id number] Acct: [id number] Name: RUBEN ALLEN Jr. Rep #:[id number] : 1965 59 From: Christian Silva Attending Dr: Dr. Christian Doty MD S tatus: REG CLI Ordering Dr: Odalys Dior Date: Location: [facility] Sex: M C Admitted: Reason For Study Reason For Study: S/P Ablation RIGHT LEFT CFV is compressible, spontaneous, phasic, competent CFV is compressible, spontaneous, phasic, competent, and demonstrates normal augmentation. and demonstrates normal augmentation. FV is compressible, spontaneous, phasic, competent and demonstrates normal augmentation. POP V is compressible, phasic, and INCOMPETENT for greater than 1.0 second. T/P Trunk is compressible. PTV is compressible. RT PerV is compressible. GSV is absent, previous ablation. Varicose veins in mid-distal calf are noncompressible s/p Verithena ablation. Procedure This is a venous duplex using B-mode, color flow and spectral Doppler. Exam performed in department. VL/Venous Duplex US, Unilateral Interpretation Summary Deep veins of the right lower extremity are patent and compressible segmentally.There is no evidence of right lower extremity deep vein thrombosis. Right calf varicosities occluded consistent with recent foam ablation Ordering Physician: Odalys Dior Referring Physician: Arvind Frausto Performed By: Kayy Rodriguez RVT 04/02/25 0949 Date _ Christian Doty MD CC: BENJI Lino; Dr. George Frausto MD; Dr. Christian Doty MD ~ Date Dictated: 03/30/25803 Date Transcribed: 04/02/25948 Research Development Director: Signed [facility] Work Phone: Venous Duplex US, Unilateral on 03-30-2025 Venous Duplex US, Unilateral [facility] [address] [place] [address] Venous Duplex US, Unilateral 03/30/25803 MR#: [id number] Acct: [id number] Name: RUBEN ALLEN Jr. Rep #: [id number] : 1965 59 From: Christian Doty MD Attending Dr: Dr. Christian Doty MD Status: REG C REKHA Ordering Dr: Odalys Dior Date: 03/30/25 Location: CVS Sex: M C Admitted: Reason For Study Reason For Study: S/P Ablation RIGHT LEFT CFV is compressible, spontaneous, phasic, competent CFV is compressible, spontaneous, phasic, competent, and demonstrates normal augmentation. and demonstrates normal augmentation. FV is compressible, spontaneous, phasic, competent and demonstrates normal augmentation. POP V is compressible, phasic, and INCOMPETENT for greater than 1.0 second. T/P Trunk is compressible. PTV is compressible. RT PerV is compressible. GSV is absent, previous ablation. Varicose veins in mid-distal calf are noncompressible s/p Verithena ablation. Procedure This is a venous duplex using B-mode, color flow and spectral Doppler. Exam performed in department. VL/Venous Duplex US, Unilateral Interpretation Summary Deep veins of the right lower extremity are patent and compressible segmentally. There is no evidence of right lower extremity deep vein thrombosis. Right calf varicosities occluded consistent with recent foam ablation Ordering Physician: Odalys Dior Referring Physician: Arvind Frausto Performed By: Willinger, Kayy, RVT 04/02/2549 Date Christian Doty MD CC: BENJI Lino; Dr. George Frausto MD; Dr. Christian Doty MD Date Dictated: 03/30/25803 Date Transcribed: 04/02/25948 Research Development Director: Signed Normal [facility] Operative Reporton Operative Report [facility] Medical Records Department [address] [place] [address] Operative Report 03/25/25 1524 MR#: [id number] Acct: [id number] Name: RUBEN ALLEN Jr. Rep #: [id number] : 1965 59 From: Christian Doty MD PCP: Dr. George Frausto MD Status:[facility] Location: [facility] Operative Report (Standard) Operative Information Date of Procedure: 03/25/25 Pre-Operative Diagnosis: Venous insufficiency with ulceration of the right medial calf and ankle Post-Operative Diagnosis: Same Surgery/Procedure Performed: Foam ablation of incompetent varicosities of the right lower extremity from the ankle to the knee order filler: No Type of Anesthesia: None Procedure Start Time: 09:35 Procedure Stop Time: 09:50 Select all DRAINS/GRAFTS/IMPLANTS that apply: None Estimated Blood Loss: 1 Specimen collected: No Description of surgery: HPI: Patient is a 59-year-old male with recurrent venous ulcerations of the bilateral extremities at the medial malleolus with chronic skin changes of the medial aspect of the calf. He has reflux only in his varicosities in his deep system of the right lower extremity so he presents now for foam ablation of the varicosities feeding the wound bed. Description of procedure: Upon obtaining informed consent and verification correct patient procedure and site the patient was taken to the [employer] he was positioned prepped and draped in usual sterile fashion. Ultrasound used to evaluate the varicosities from the wound bed at the medial malleolus towards the knee with multiple parallel varicose vein segments intermingling and cross communicating. A suitable site for access was identified just above the wound and the vessel accessed with a butterfly needle 21-gauge. Once blood return was obtained the needle was flushed with saline and visualized to be within the vessel. Next Varithena foam was drawn out per resident services supervisor's instructions and infused into the butterfly needle and varicosities under direct visualization with ultrasound. Once the glue approached the proximal calf where the vessels went more posteriorly and were difficult to visualize manual pressure was held over the bundles of varicosities. After 3 minutes of pressure the vessels were reassessed with foam to the compression point and no further. The needle was then withdrawn a minute pressure held until hemostasis obtained and dry sterile dressing followed by El wrap was applied. The patient was then taken to the recovery area with plan discharged to home. Surgical Findings: See above Complications Complications: No 03/25/25 1528 Cosigner Signature (if applicable): CC: Dr. George Frausto MD; Dr. Christian Doty MD Signed Normal [facility] Culture, Anaerobic Any Sourc morro 03-02-2025 CUAN List Antibiotics Las t 48 Hours? none List Antibiotics to be Started? none Studies have confirmed that Anaerobic Gram Positive Cocci are routinely SUSCEPTABLE to Penicillin and generally susceptible to Beta-lactams and Beta-lactamase inhibitors, Cephalosporins, Carbapenems and Metronidazole. They are showing increased RESISTANCE to Clindamycin Bacteria Spec Anaerobe Cult Bacteria Spec Anaerobe Cult Anaerobic cocci Normal [facility] Comment on above: Performed By: #### M 100.3000, M100.2000, M100.4001 #### [facility] [place], [address] Wound Cultureon 03-01-2025 List Antibiotics Las t 48 Hours? none List Antibiotics to be Started? none #2 Gram positive anan suggestive of a diphtheroid. Susceptibility not normally performed on this organism Serratia marcescens Amount Growth 1+ Corynebacterium striatum Corynebacterium striatum SEPI Amount Growth Rare Staphylococcus epidermidis Cefepime Islt ODELL <=0.12 cefTRIAXone Islt ODELL <=0.25 S Ciprofloxacin Islt ODELL 0.12 Gentamicin Islt ODELL <=1 S levoFLOXacin Islt ODELL <=0.12 S Meropenem Islt ODELL <=0.25 S TMP SMX Islt ODELL <=20 S Staphylococcus epidermidis: REACTION cefOXitin Susc Islt POS Doxycycline Islt ODELL 1 S Clindamycin Islt ODELL <=0.12 Clindamycin.induced Susc Islt NEG Erythromycin Islt ODELL >=8 R Gentamicin Islt ODELL <=0.5 S Linezolid Islt ODELL 1 S Oxacillin Susc Islt >=4 R Tetracycline Islt ODELL 2 S TMP SMX Islt ODELL 160 R Vancomycin Islt ODELL 2 S Normal [facility] Comment on above: Performed By: #### M 100.3000, M100.1999, M100.4001 #### [facility] [address] [place], [address] Anaerobic cultureOrdered By: Alice Amaya on 02-26-2025 Bacteria identified Anaer cx Nom (Unsp spec) Anaerobic cocci Abnormal [facility] Gram Stainon 02-26-2025 GS List Antibiotics Las t 48 Hours? none List Antibiotics to be Started? none Gram Stain 1+ Gram positive cocci Normal [facility] Comment on above: Performed By: #### M 100.3000, M100.1999, M100.4001 #### [facility] [address] [place], [place], [id number] Gram stainOrdered By: Jorgito Amaya on 02-26-2025 Microscopic observation Gram stain Nom (Unsp spec) [facility] Routine wound cultureOrdered By: Alice Amaya on 02-26-2025 Microbial culture, routine Staphylococcus epidermidis Abnormal [facility] MR/BMS.BVSon 01-01-2025 MR/BMS.BVS [facility] [address] [place], [place] [address] OFFICE VISIT Date of Service: 01/01/25 MR#: [id number] Acct: [id number] Name: RUBEN ALLEN Jr. Rep #: [id number] : 1965 Provider: Dr. Christian Doty MD Age/Sex: 59/M Location: BMS.BVS Status: Signed Intake Vital Signs 07/31/22 07:07 01/01/25 13:54 Height 5 ft 9 in Weight: 267 lb BP 147/85 H Blood Pressure Location Lt brachial Position Sitting Respiration 16 Pulse 87 Pulse Source Monitor Temp 97.8 F Temp Source Temporal Pulse Oximetry (%) 96 Oxygen Delivery Method room air Intake Visit Reasons: 2 WK FU Chief Complaint: wounds Is patient in pain?: No Allergies ciprofloxacin (From Cipro) Allergy (Verified 01/01/25 13:55) Rash ciprofloxacin HCl (From Cipro) Allergy (Verified 01/01/25 13:55) Rash Medications ???Medication ???Instructions ???Recorded ???Confirmed ???Type aspirin 81 mg chewable tablet 81 mg PO DAILY@0800 HEALTH 8 01/01/25 History atorvastatin 20 mg tablet 20 mg PO QHS CHOLESTEROL 07/18/21 01/01/25 History hydrochlorothiazide 25 mg tablet 25 mg PO DAILY BP 07/18/21 5 History Have you fallen in the past year?: No PFSH Medical History MRSA infection Former smoker History of edema Ulcer of right lower extremity with fat layer exposed Stasis ulcer Family History Other CAD (coronary artery disease) CVA (cerebral vascular accident) Diabetes Heart disease Hypertension Social History Smoking Status: Former smoker Tobacco: How many years used: 21 HPI HPI HPI: RUBEN ALLEN, is a 59 M who presents to the office today for follow up of bilateral lower extremity venous insufficiiency with ulceration at the medial malleolus bilateral. Has had prior GSV ablations and venogram that revealed no central obstruction. 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 Current wounds have been present for a few years, refractory to compression and local tx. ROS General General: No weight change, appetite, fatigue, colon cancer, breast cancer or weakness HEENT HEENT: No difficulty swallowing, eye injury, eye surgery, swollen glands or hoarseness Endo Endocrine: No thyroid disease, diabetes mellitus, thyroid cancer, Hair loss, heat intolerance or cold intolerance Skin Skin: Yes rash; No changing moles Musc Musculoskeletal: No back problems, arthritis, rheumatoid arthritis, gout or joint pain Cardio Cardiovascular: Yes high blood pressure; No murmur, pacemaker, heart disease, atrial fibrillation, heart attack, heart stent, palpitations, shortness of breat with exertion or chest pain Psych Psychiatric: No depression, anxiety or hearing voices Resp Respiratory: No shortness of breath, No sleep apnea, No cough, No COPD, No asthma, No emphysema and No wheezing Gastro Gastrointestinal: No abdominal pain, No nausea or vomiting, No diarrhea, No constipation, No blood in stool, No acid reflux, No hemorrhoids, No ulcers, No gallbladder problem and No black,tarry stools Robert Hematologic: Yes blood thinners, No blood disorders, No bleeding, No anemia and No blood clots Additional Details: asa Neuro Neurologic: No system reviewed and no additional complaints, except as documented, No as per HPI, No abnormal gait, No abnormal hearing, No abnormal movements, No abnormal speech, No behavioral changes, No burning sensations, No confusion, No convulsions, No disequilibrium, No dizziness, No localized weakness, No frequent falls, No headache(s), No lack of coordination, No loss of vision, No memory loss, No numbness, No other visual disturbances, No radicular pain, No restless legs, No sensory deficit, No syncope, No tingling, No tremor(s), No weakness and No other Exam Const General: cooperative, healthy appearing, comfortable, no acute distress and well developed Nutritional Appearance: well nourished Orientation: alert, awake and oriented x3 [facility] Head: normocephalic and atraumatic Ears: hearing grossly normal bilaterally Nose: external nose normal Eyes General: appearance normal, both eyes and all related structures EOM: EOM intact bilaterally Neck Neck: normal visual inspection, full ROM and trachea midline Resp Effort Inspection: normal respiratory effort, able to speak in complete sentences, symmetric chest movement, no audible wheezes, not labored, no stridor and no use of accessory muscles Cardio Rate: regular rate Rhythm: regular rhythm Pulses: posterior tibial pulses present and dorsalis pedis present Skin (more content not included)... Normal [facility] 12-12-2024 [facility] Telephone (FAMPWS) -- RUBEN ALLEN ([id number]) 1965 M Date Time Provider Department 12/12/24 BHAVANA ROSALES During your visit today, we recorded the following information about you: Cathy Rhoades LPN 12/12/2024 11:38 AM Signed Type of form: Annual Physical Form received via walk in When form is completed, call patient Form has been forwarded to Nurse Practitioner: JESÚS Zabala Julie, APRN.CNP 12/15/2024 8:04 AM Signed Do you have his forms? Bhavana Rosales APRN.Bhavana Richardson APRN.CNP 12/15/2024 8:19 AM Signed Form completed and on my desk. Bhavana Rosales APRN.Cathy Montero LPN 12/15/2024 8:43 AM Signed Telephone call to patient, message left to call office back to let us know what to do with form. Form is at my desk until further instructed. JESÚS Nelson Elizabeth, MA 12/19/2024 7:47 AM Signed Patient came into office and picked form up Kyara Mtz MA Allergies As of Date: 12/12/2024 Noted Allergy Reaction CIPROFLOXACIN 07/02/2020 2 - Rash Date Reviewed: 11/07/2024 Reviewed by: Cathy Rhoades LPN - Fully Assessed Reason for Visit: Forms [913] Cmt: Annual Physical Prescriptions as of 12/19/2024 - atorvastatin (LIPITOR) 20 mg tablet Take 1 tablet by mouth daily at bedtime. For cholesterol. - hydroCHLOROthiazide 25 mg tablet Take 1 tablet by mouth once daily. - aspirin, enteric coated (ASPIRIN, ENTERIC COATED) 81 mg EC tablet Take 81 mg by mouth once daily. - Ascorbic Acid (VITAMIN C) 100 mg tablet Take 100 mg by mouth once daily. - calcium phosphate dibas/vit D3 (VITAMIN D, WITH CALCIUM, ORAL) Take by mouth. - Vitamin E, dl, acetate, (VITAMIN E) 100 unit capsule Take 100 Units by mouth once daily. - Zinc 50 mg tab Take 1 tablet by mouth once daily. Problem List As Of Date 12/12/2024 Noted Resolved Hypertension [I10] Overweight (BMI 25.0-29.9) [E66.3] 07/01/2021 Obesity [E66.9] 12/27/2020 Elevated blood sugar [R73.9] 12/27/2020 Hyperlipidemia, mixed [E78.2] 12/27/2020 Wound of left leg [S81.802A] 10/28/2022 PVD (peripheral vascular disease) (HCC) [I73.9] 10/28/2022 Tinea versicolor [B36.0] 10/28/2022 Periodontal disease [K05.6] 10/28/2022 Dental caries [K02.9] 10/28/2022 Wound of right leg [S81.801A] 10/28/2022 Obesity, Class II, BMI 35-39.9 [E66.812] 10/09/2023 Encounter Status:Closed by KYARA MTZ on 12/19/24 [facility] MR/Gunner 12-04-2024 MR/SARAH [facility] [address] [place] [address]. [address] [place] [address] OFFICE VISIT Date of Service: 12/04/24 MR#: [id number] Acct: [id number] Name: RUBEN ALLEN Jr. Rep #: [id number] : 1965 Provider: BENJI Lino Age/Sex: 59/M Location: [facility] Status: Signed Intake Vital Signs 07/31/22 07:07 12/04/24 08:32 Height 5 ft 9 in Weight: 260 lb BP 155/90 H Blood Pressure Location Lt brachial Position Sitting Respiration 14 Pulse 94 Pulse Source Monitor Temp 98.0 F Temp Source Temporal Pulse Oximetry (%) 98 Oxygen Delivery Method room air Intake Visit Reasons: Non healing wounds, discuss ablation Chief Complaint: wounds Is patient in pain?: No Allergies ciprofloxacin (From Cipro) Allergy (Verified 12/04/24 08:35) Rash ciprofloxacin HCl (From Cipro) Allergy (Verified 12/04/24 08:35) Rash Medications ???Medication ???Instructions ???Recorded ???Confirmed ???Type aspirin 81 mg chewable tablet 81 mg PO DAILY@0800 HEALTH 8 12/04/24 History atorvastatin 20 mg tablet 20 mg PO QHS CHOLESTEROL 07/18/21 12/04/24 History hydrochlorothiazide 25 mg tablet 25 mg PO DAILY BP 07/18/21 5 History Have you fallen in the past year?: No PFSH Medical History MRSA infection Former smoker History of edema Ulcer of right lower extremity with fat layer exposed Stasis ulcer Family History (Updated 12/04/24 @ 08:30 by Lenore Roman) Other CAD (coronary artery disease) CVA (cerebral vascular accident) Diabetes Heart disease Hypertension Social History (Updated 12/04/24 @ 08:32 by Lenore Roman) Smoking Status: Former smoker Tobacco: How many years used: 21 smoking status stop date: 03/29/20 HPI HPI HPI: RUBEN ALLEN, is a 59 M who presents to the office today for evaluation of bilateral lower extremity venous ulcerations and associated venous insufficiency. He is known to our office, last seen in 11/2021 for the same BLE ulcerations. In 2021, he had workup including venogram which was negative for central venous compression. There had been plans for ablation, but he states his insurance at that time denied the procedure. He does have a different plan now. He had an updated venous reflux study 12/02/2024 which demonstrated bilateral CFV, FV, popliteal vein reflux; prior R GSV ablation from ankle to SFJ; prior L GSV ablation from prox thigh to distal calf; R SSV reflux at junction and through the calf and multiple accessories through the calf that appear to branch from the SSV; L ASV thigh, ASV calf, SSV calf incompetence and multiple incompetent perforators. ROS General General: No weight change, appetite, fatigue, colon cancer, breast cancer or weakness HEENT HEENT: No difficulty swallowing, eye injury, eye surgery, swollen glands or hoarseness Endo Endocrine: No thyroid disease, diabetes mellitus, thyroid cancer, Hair loss, heat intolerance or cold intolerance Skin Skin: Yes rash; No changing moles Musc Musculoskeletal: No back problems, arthritis, rheumatoid arthritis, gout or joint pain Cardio Cardiovascular: Yes high blood pressure; No murmur, pacemaker, heart disease, atrial fibrillation, heart attack, heart stent, palpitations, shortness of breat with exertion or chest pain Psych Psychiatric: No depression, anxiety or hearing voices Resp Respiratory: No shortness of breath, No sleep apnea, No cough, No COPD, No asthma, No emphysema and No wheezing Gastro Gastrointestinal: No abdominal pain, No nausea or vomiting, No diarrhea, No constipation, No blood in stool, No acid reflux, No hemorrhoids, No ulcers, No gallbladder problem and No black,tarry stools Robert Hematologic: No blood thinners, No blood disorders, No bleeding, No anemia and No blood clots Neuro Neurologic: No system reviewed and no additional complaints, except as documented, No as per HPI, No abnormal gait, No abnormal hearing, No abnormal movements, No abnormal speech, No behavioral changes, No burning sensations, No confusion, No convulsions, No disequilibrium, No dizziness, No localized weakness, No frequent falls, No headache(s), No lack of coordination, No loss of vision, No memory loss, No numbness, No other visual disturbances, No radicular pain, No restless legs, No sensory deficit, No syncope, No tingling, No tremor(s), No weakness and No other Exam Const General: cooperative, healthy appearing, comfortable, no acute distress and well developed Nutritional Appearance: well nourished Orientation: alert, awake and oriented x3 HENMT Head: normocephalic and atraumatic Ears: hearing grossly normal bilaterally Nose: external nose normal Eyes General: appearance normal, both eyes and all related struc (more content not included)... Normal [facility] Lower Ext Art Exam w/o Exerc trino 12-02-2024 Lower Ext Art Exam w/o Exercis [facility] [address] [place] [address] Lower Ext Art Exam w/o Exercis 12/02/24 0801 MR#: [id number] Acct: [id number] Name: RUBEN ALLEN Jr. Rep #: [id number] : 1965 59 From: Christian Doty MD Attending Dr: Dr. Alice Amaya MD Status: REG RCR Ordering Dr: Alice Amaya MD Date: 12/02/24 Location: Sex: M C Admitted: Reason For Study: BLE foot wounds Procedure A bilateral lower extremity continuous wave Doppler with analog waveform analysis,segmental pressures,and ankle brachial indexes without exercise. Left Segmental Pressures Left brachial= 133mmHg. Left dorsalis pedis artery = 155mmHg. Left digit = 149 mmHg. The left dorsalis pedis waveforms are triphasic. Unable to acquire [employer] pressure / waveform due to open wounds. Right Segmental Pressures Right brachial= 136mmHg. Right dorsalis pedis artery = 180mmHg. Right digit = 139 mmHg. The right dorsalis pedis waveforms are triphasic. Unable to acquire [employer] pressure / waveform due to open wounds. Indices The right ankle brachial index by the dorsalis pedis is 1.32. The right digital-brachial index is 1.02. The left ankle brachial index by the dorsalis pedis is 1.14. The left digital-brachial index is 1.10. VL/Lower Ext Art Exam w/o Exercis Interpretation Summary Right NIC 1.32, normal. TBI and Doppler/PVR waveforms of the right leg normal at rest. Left NIC 1.14, normal. TBI and Doppler/PVR waveforms of the left leg normal at rest. Ordering Physician: Alice Amaya Referring Physician: Arvind Frausto Performed By: Chilango Limon Prince 12/02/24 1608 Date Christian Chocorua MD CC: Dr. George Frausto MD; Dr. Alice Amaya MD Date Dictated: 12/02/24 0801 Date Transcribed: 12/02/24 1608 Research Development Director: Signed Normal [facility] Venous Duplex US - Hector Extre [facility] 12-02-2024 Venous Duplex US - Hector Extrem [facility] [address] [place] [address] Venous Duplex US - Hector Extrem 12/02/24827 MR#: [id number] Acct: [id number] Name: RUBEN ALLEN Jr. Rep #: [id number] : 1965 59 From: Christian Doty MD Attending Dr: Dr. Alice Amaya MD Status: REG RCR Ordering Dr: Alice Amaya MD Date: 12/02/24 Location: Sex: M C Admitted: Reason For Study: BLE foot ulcers RIGHT LEFT CFV is compressible, phasic, and INCOMPETENT CFV is compressible, phasic, and INCOMPETENT for greater than 1.0 second. for greater than 1.0 second. FV is compressible, phasic, and INCOMPETENT FV is compressible, phasic, and INCOMPETENT for greater than 1.0 second. for greater than 1.0 second. POP V is compressible, phasic, and POP V is compressible, phasic, and INCOMPETENT for greater than 1.0 second. INCOMPETENT for greater than 1.0 second. T/P Trunk is compressible. T/P Trunk is compressible. PTV is compressible. PTV is compressible. RT PerV is compressible. LT PerV is compressible. GSV appear to have been ablated from ankle to SFJ is INCOMPETENT and measures 0.62 cm. SFJ. GSV appears to have been ablated prox thigh Multiple tortuous accessories noted at knee to distal calf. and throughout calf that appear to branch ASV proximal thigh is INCOMPETENT for greater from SSV. than 0.5 seconds and measures 0.59 x 0.64 cm. SSV at junction is INCOMPETENT for greater than 0.5 seconds and measures 0.83 cm. Perforating Vessel at knee is INCOMPETENT for SSV at prox calf is INCOMPETENT for greater greater than 0.5 seconds and measures 0.26 than 0.5 seconds and measures 0.83 x 0.72 cm. cm. Procedure Perforating Vessel 10 cm distal to knee is This is a venous duplex using B-mode, color INCOMPETENT for greater than 0.5 seconds and flow and spectral Doppler. measures 0.16 cm. Exam performed in department. Perforating Vessel mid calf is INCOMPETENT The exam was diagnostic. for greater than 0.5 seconds and measures 0.20cm. SSV appears to have been ablated at junction. SSV mid calf is INCOMPETENT for greater than 0.5 seconds and measures 0.23 x 0.28 cm. ASV distal calf is INCOMPETENT for greater than 0.5 seconds and measures 0.43 x 0.53 cm. Multiple tortuous branches of perforators and SSV noted throughout calf. VL/Venous Duplex US - Hector Extrem Interpretation Summary Deep veins of the bilateral lower extremities are patent and compressible segmentally. There is no evidence of bilateral lower extremity deep vein thrombosis. Positive for reflux in the right common femoral vein, femoral vein, popliteal vein, small saphenous vein. Positive for reflux in the left common femoral vein, femoral vein, popliteal vein, saphenofemoral junction, accessory saphenous vein in thigh, accessory saphenous vein in the calf, multiple medial calf perforators, small saphenous vein. Ordering Physician: Alice Amaya Referring Physician: George Frausto Performed By: Chilango Limon, T 12/02/24 1607 Date Christian Doty MD CC: Dr. George Frausto MD; Dr. Alice Amaya MD Date Dictated: 12/02/24827 Date Transcribed: 12/02/24 1607 Research Development Director: Signed Normal [facility] [id number] 11-25-2024 [facility]. COMMENT Normal . [facility] Comment on above: Order Comment: [id number] 1A AND A CULTURE AND GRAM STAIN Result Comment: Test Ordered: [id number] Anaerobic/Aerobic/Gram Stain Anaerobic Culture Note: CB Final report Reference Range: . Result 1 Comment CB Reference Range: . No anaerobic growth in 72 hours. Aerobic Culture Note: [A ] CB Final report Reference Range: . Result 1 Note: [A ] CB Serratia marcescens Reference Range: . Multi-Drug Resistant Organism Moderate growth Antimicrobial Susceptibility Comment CB Reference Range: . S = Susceptible; I = Intermediate; R = Resistant P = Positive; N = Negative MICS are expressed in micrograms per mL Antibiotic RSLT#1 RSLT#2 RSLT#3 RSLT#4 Amoxicillin/Clavulanic Acid R Cefazolin R Cefepime S Ceftriaxone S Cefuroxime R Ciprofloxacin S Ertapenem S Gentamicin S Levofloxacin S Meropenem S Tetracycline R Tobramycin S Trimethoprim/Sulfa S Gram Stain Result Note: CB Final report Reference Range: . Result 1 Comment CB Reference Range: . No white blood cells seen. Result 2 Note: CB No organisms seen Reference Range: . Performed at: [place] [id number] [facility] [employer]: Edd Brush PhD, Phone: [phone] Performed By: #### M 100.4001, M100.3000, M100.1999 #### [facility] [address] [place], [place], [id number] No Panel InformationOrdered By: Alice Amaya on 11-20-2024 Miscellaneous Test COMMENT . [facility] Comment on above: Test Ordered: [id number] Anaerobic/Aerobic/Gram StainAnaerobic Culture Note: Final report Reference Range: .Result 1 Comment CB Reference Range: .No anaerobic growth in 72 hours.Aerobic Culture Note: [A ] CB Final report Reference Range: .Result 1 Note: [A ] CB Serratia marcescens Reference Range: .Multi-Drug Resistant OrganismModerate growthAntimicrobial Susceptibility Comment CB Reference Range: . S = Susceptible; I = Intermediate; R = Resistant P = Positive; N = Negative MICS are expressed in micrograms per mL Antibiotic RSLT#1 RSLT#2 RSLT#3 RSLT#4Amoxicillin/Clavulanic Acid RCefazolin RCefepime SCeftriaxone SCefuroxime RCiprofloxacin SErtapenem SGentamicin SLevofloxacin SMeropenem STetracycline RTobramycin STrimethoprim/Sulfa SGram Stain Result Note: CB Final report Reference Range: .Result 1 Comment CB Reference Range: .No white blood cells seen.Result 2 Note: CB No organisms seen Reference Range: .Performed at: - [facility] [id number] Director: Edd Brush PhD, Phone: [phone] Kaia 11-10-2024 MARYANN Telephone (OZZY) -- RUBEN ALLEN ([id number]) 1965 M Date Time Provider Department 11/10/24 BHAVANA ROSALES During your visit today, we recorded the following information about you: Cathy Rhoades LPN 11/10/2024 9:16 AM Signed ----- Message from Bhavana Rosales APRN.[employer]PER[employer] sent at 11/10/2024 7:48 AM EST ----- A1c has increased from 5.9% to 6.1%- recommend work on lower carbohydrate diet and aim for at least 150 minutes of exercise per week. The rest of his blood work in within acceptable ranges Fatemeh Gibbs MA 11/10/2024 9:35 AM Signed Letter mailed to pt home of results. Fatemeh Gibbs MA Allergies As of Date: 11/10/2024 Noted Allergy Reaction CIPROFLOXACIN 07/02/2020 2 - Rash Date Reviewed: 11/07/2024 Reviewed by: Cathy Rhoades LPN - Fully Assessed Reason for Visit: Results [95] Prescriptions as of 11/10/2024 - hydroCHLOROthiazide 25 mg tablet Take 1 tablet by mouth once daily. - atorvastatin (LIPITOR) 20 mg tablet Take 1 tablet by mouth daily at bedtime. For cholesterol. - aspirin, enteric coated (ASPIRIN, ENTERIC COATED) 81 mg EC tablet Take 81 mg by mouth once daily. - Ascorbic Acid (VITAMIN C) 100 mg tablet Take 100 mg by mouth once daily. - calcium phosphate dibas/vit D3 (VITAMIN D, WITH CALCIUM, ORAL) Take by mouth. - Vitamin E, dl, acetate, (VITAMIN E) 100 unit capsule Take 100 Units by mouth once daily. - Zinc 50 mg tab Take 1 tablet by mouth once daily. Problem List As Of Date 11/10/2024 Noted Resolved Hypertension [I10] Overweight (BMI 25.0-29.9) [E66.3] 07/01/2021 Obesity [E66.9] 12/27/2020 Elevated blood sugar [R73.9] 12/27/2020 Hyperlipidemia, mixed [E78.2] 12/27/2020 Wound of left leg [S81.802A] 10/28/2022 PVD (peripheral vascular disease) (HCC) [I73.9] 10/28/2022 Tinea versicolor [B36.0] 10/28/2022 Periodontal disease [K05.6] 10/28/2022 Dental caries [K02.9] 10/28/2022 Wound of right leg [S81.801A] 10/28/2022 Obesity, Class II, BMI 35-39.9 [E66.812] 10/09/2023 Letter Text Encounter Status:Closed by FATEMEH GIBBS on 11/10/24 Normal [facility] CBC W Auto Differential pane l (Bld)on 11-07-2024 Basophils (Bld) [#/Vol] 0.05 10*3/uL Normal <0.11 [facility] Comment on above: Order Comment: Speci men Type: BLOOD SPECIMEN Ordering Facility: [facility] Address: [address] [place] [address] Performed By: #### 5 7021-8 #### [facility] CLIA [id number] [address] [place] [address] [place] Basophils/100 WBC (Bld) 0.7 % Normal [facility] Comment on above: Order Comment: Speci men Type: BLOOD SPECIMEN Ordering Facility: [facility] Address: [address] [place] [address] Performed By: #### 5 7021-8 #### [facility] CLIA [id number] [address] [place] [address] [place] Differential cell count method Nom (Bld) Auto Normal [facility] Comment on above: Order Comment: Speci men Type: BLOOD SPECIMEN Ordering Facility: [facility] Address: [address] [place] [address] Performed By: #### 5 7021-8 #### [facility] CLIA [id number] [address] [place] [address] [place] Eosinophils (Bld) [#/Vol] 0.15 10*3/uL Normal <0.46 [facility] Comment on above: Order Comment: Speci men Type: BLOOD SPECIMEN Ordering Facility: [facility] Address: [address] [place] [address] Performed By: #### 5 7021-8 #### [facility] CLIA [id number] [address] [place] [address] [place] Eosinophils/100 WBC (Bld) 2.2 % Normal [facility] Comment on above: Order Comment: Speci men Type: BLOOD SPECIMEN Ordering Facility: [facility] Address: [address] [place] [address] Performed By: #### 5 7021-8 #### [facility] CLIA [id number] [address] [place] [address] [place] Erythrocyte distribution width (RBC) [Ratio] 12.6 % Normal 11.5-15.0 [facility] Comment on above: Order Comment: Speci men Type: BLOOD SPECIMEN Ordering Facility: [facility] Address: [address] [place] [address] Performed By: #### 5 7021-8 #### [facility] CLIA [id number] [address] [place] [address] [place] Hematocrit (Bld) [Volume fraction] 46.8 % Normal 39.0-51.0 [facility] Comment on above: Order Comment: Speci men Type: BLOOD SPECIMEN Ordering Facility: [facility] Address: [address] [place] [address] Performed By: #### 5 7021-8 #### [facility] CLIA [id number] [address] [place] [address] [place] Hemoglobin (Bld) [Mass/Vol] 15.7 g/dL Normal 13.0-17.0 [facility] Comment on above: Order Comment: Speci men Type: BLOOD SPECIMEN Ordering Facility: [facility] Address: [address] [place] [address] Performed By: #### 5 7021-8 #### [facility] CLIA [id number] [address] [place] [address] [place] Immature granulocytes (Bld) [#/Vol] 10*3/uL Normal <0.10 [facility] Comment on above: Order Comment: Speci men Type: BLOOD SPECIMEN Ordering Facility: [facility] Address: [address] [place] [address] Performed By: #### 5 7021-8 #### [facility] CLIA [id number] [address] [place] [address] [place] Immature granulocytes/100 WBC (Bld) 0.3 % Normal [facility] Comment on above: Order Comment: Speci men Type: BLOOD SPECIMEN Ordering Facility: [facility] Address: [address] [place] [address] Performed By: #### 5 7021-8 #### [facility] CLIA [id number] [address] [place] [address] [place] Lymphocytes (Bld) [#/Vol] 2.42 10*3/uL Normal 1.00-4.00 [facility] Comment on above: Order Comment: Speci men Type: BLOOD SPECIMEN Ordering Facility: [facility] Address: [address] [place] [address] Performed By: #### 5 7021-8 #### [facility] CLIA [id number] [address] [place] [address] [place] Lymphocytes/100 WBC (Bld) 35.5 % Normal [facility] Comment on above: Order Comment: Speci men Type: BLOOD SPECIMEN Ordering Facility: [facility] Address: [address] [place] [address] Performed By: #### 5 7021-8 #### [facility] CLIA [id number] [address] [place] [address] [place] MCH (RBC) [Entitic mass] 30.6 pg Normal 26.0-34.0 [facility] Comment on above: Order Comment: Speci men Type: BLOOD SPECIMEN Ordering Facility: [facility] Address: [address] [place] [address] Performed By: #### 5 7021-8 #### [facility] CLIA [id number] [address] [place] [address] [place] MCHC (RBC) [Mass/Vol] 33.5 g/dL Normal 30.5-36.0 [facility] Comment on above: Order Comment: Speci men Type: BLOOD SPECIMEN Ordering Facility: [facility] Address: [address] [place] [address] Performed By: #### 5 7021-8 #### [facility] CLIA [id number] [address] [place] [address] [place] MCV (RBC) [Entitic vol] 91.2 fL Normal 80.0-100.0 [facility] Comment on above: Order Comment: Speci men Type: BLOOD SPECIMEN Ordering Facility: [facility] Address: [address] [place] [address] Performed By: #### 5 7021-8 #### [facility] CLIA [id number] [address] [place] [address] [place] Monocytes (Bld) [#/Vol] 0.93 10*3/uL High <0.87 [facility] Comment on above: Order Comment: Speci men Type: BLOOD SPECIMEN Ordering Facility: [facility] Address: [address] [place] [address] Performed By: #### 5 7021-8 #### [facility] CLIA [id number] [address] [place] [address] [place] Monocytes/100 WBC (Bld) 13.7 % Normal [facility] Comment on above: Order Comment: Speci men Type: BLOOD SPECIMEN Ordering Facility: [facility] Address: [address] [place] [address] Performed By: #### 5 7021-8 #### [facility] CLIA [id number] [address] [place] [address] [place] Neutrophils (Bld) [#/Vol] 3.24 10*3/uL Normal 1.45-7.50 [facility] Comment on above: Order Comment: Speci men Type: BLOOD SPECIMEN Ordering Facility: [facility] Address: [address] [place] [address] Performed By: #### 5 7021-8 #### [facility] CLIA [id number] [address] [place] [address] [place] Neutrophils/100 WBC (Bld) 47.6 % Normal [facility] Comment on above: Order Comment: Speci men Type: BLOOD SPECIMEN Ordering Facility: [facility] Address: [address] [place] [address] Performed By: #### 5 7021-8 #### [facility] CLIA [id number] [address] [place] [address] [place] Nucleated RBC (Bld) [#/Vol] 10*3/uL Normal <0.01 [facility] Comment on above: Order Comment: Speci men Type: BLOOD SPECIMEN Ordering Facility: [facility] Address: [address] [place] [address] Performed By: #### 5 7021-8 #### [facility] CLIA [id number] [address] [place] [address] [place] Nucleated RBC/100 WBC (Bld) [Ratio] 0.0 /100 WBC Normal [facility] Comment on above: Order Comment: Speci men Type: BLOOD SPECIMEN Ordering Facility: [facility] Address: [address] [place] [address] Performed By: #### 5 7021-8 #### [facility] CLIA [id number] [address] [place] [address] [place] Platelet mean volume (Bld) [Entitic vol] 11.7 fL Normal 9.0-12.7 [facility] Comment on above: Order Comment: Speci men Type: BLOOD SPECIMEN Ordering Facility: [facility] Address: [address] [place] [address] Performed By: #### 5 7021-8 #### [facility] CLIA [id number] [address] [place] [address] [place] Platelets (Bld) [#/Vol] 207 10*3/uL Normal 150-400 [facility] Comment on above: Order Comment: Speci men Type: BLOOD SPECIMEN Ordering Facility: [facility] Address: [address] [place] [address] Performed By: #### 5 7021-8 #### [facility] CLIA [id number] [address] [place] [address] [place] RBC (Bld) [#/Vol] 5.13 10*6/uL Normal 4.20-6.00 [facility] Comment on above: Order Comment: Speci men Type: BLOOD SPECIMEN Ordering Facility: [facility] Address: [address] [place] [address] Performed By: #### 5 7021-8 #### [facility] CLIA [id number] [address] [place] [address] [place] WBC (Bld) [#/Vol] 6.81 10*3/uL Normal 3.70-11.00 [facility] Comment on above: Order Comment: Speci men Type: BLOOD SPECIMEN Ordering Facility: [facility] Address: [address] [place] [address] Performed By: #### 5 7021-8 #### [facility] CLIA [id number] [address] [place] [address] [place] CNOVon 11-07-2024 [place] Office Visit (OZZY ) -- RUBEN ALLEN ([id number]) 1965 M Date Time Provider Department 11/07/24 7:40 AM BHAVANA ROSALES During your visit today, we recorded the following information about you: Pulse Respiration Blood pressure Weight 92/minute 18/minute 132/84 116.4 kg Bhavana Rosales APRN.SUPERVISOR CHANNEL [employer] 11/07/2024 8:51 AM Signed 10/08/2024 Patient presents with: F/U 6 months SUBJECTIVE: This is a 59 year old that is here today for Above Complaints. Since last office visit has been in good health without ER visits or hospitalizations. HTN: Patient is compliant with meds Yes Monitors bp at home: No. Denies side effects: Yes. Chest pain: No. Dyspnea: No. Edema: No. Palpitations: No. Syncope: No. Headache: No. Dizziness: No. Prediabetes: Does not follow low carbohydrate or follow any specific exercise regime. Denies visual changes, polyuria or polydipsia HYPERLIPIDEMIA: Patient is taking medications: Yes. Patient is watching diet: Yes. Patient denies myalgias: Yes. Patient denies gi upset: Yes PVD: following wihty [facility] wound care every 1-2 weeks for wound care to legs. LAst wound care appointment yesterday with follow-up in 2 weeks. Has upcoming appointment in November with vascular doctor to discuss. Needs excuse for jury duty due to has to attend appontments every two weeks for wounds sometimes weekly PAST MEDICAL HISTORY Diagnosis Date Dental caries History of tobacco use Hypertension Obesity Periodontal disease PVD (peripheral vascular disease) ([facility]) [facility] Vascular Wound of left leg wound center [facility], not healing since 2018 ALLERGIES Ciprofloxacin MEDICATIONS Current Outpatient Medications Medication Sig hydroCHLOROthiazide 25 mg tablet Take 1 tablet by mouth once daily. atorvastatin (LIPITOR) 20 mg tablet Take 1 tablet by mouth daily at bedtime. For cholesterol. fluconazole (DIFLUCAN) 150 mg tablet Take two tablets once a week for two weeks aspirin, enteric coated (ASPIRIN, ENTERIC COATED) 81 mg EC tablet Take 81 mg by mouth once daily. Ascorbic Acid (VITAMIN C) 100 mg tablet Take 100 mg by mouth once daily. calcium phosphate dibas/vit D3 (VITAMIN D, WITH CALCIUM, ORAL) Take by mouth. Vitamin E, dl, acetate, (VITAMIN E) 100 unit capsule Take 100 Units by mouth once daily. Zinc 50 mg tab Take 1 tablet by mouth once daily. No current facility-administered medications for this visit. Medications and allergies reviewed by this provider. SOCIAL HISTORY Social History Tobacco Use Smoking status: Former Current packs/day: 0.00 Average packs/day: 1 pack/day for 38.0 years (38.0 ttl pk-yrs) Types: Cigarettes Start date: 08/01/1981 Quit date: 08/01/2019 Years since quittin.2 Smokeless tobacco: Former Types: Chew Quit date: 07/02/2000 Vaping Use Vaping status: Never Used Substance Use Topics Alcohol use: Yes Alcohol/week: 2.0 standard drinks of alcohol Types: 2 Cans of Beer (12oz) per week Drug use: Never REVIEW OF SYSTEMS All other reviewed and negative other than HPI. OBJECTIVE: BP 132/84 Pulse 92 Resp 18 Wt 116.4 kg (256 lb 9.9 oz) SpO2 96% BMI 39.03 kg/m? . Vital signs reviewed by this provider. APPEARANCE Well appearing, alert, in no acute distress, well-hydrated, well nourished. EYES conjunctiva and sclera normal. HEART RRR with normal S1 and S2, no murmurs, no gallops, no JVD appreciated LUNG clear to auscultation. No wheezes, rhonchi or rales EXTREMITIES Compression hose with dressing intact SKIN Skin color, texture, turgor normal, no suspicious rashes or lesions to exposed skin Latest Ref Rng 04/09/2024 Protein, Total 6.3 - 8.0 g/dL 7.6 Albumin 3.9 - 4.9 g/dL 4.4 Calcium 8.5 - 10.2 mg/dL 9.7 Bilirubin, Total 0.2 - 1.3 mg/dL 0.4 Alkaline Phosphatase 38 - 113 U/L 86 AST 14 - 40 U/L 38 ALT 10 - 54 U/L 50 Glucose 74 - 99 mg/dL 101 (H) BUN 9 - 24 mg/dL 19 Creatinine 0.73 - 1.22 mg/dL 1.09 Sodium 136 - 144 mmol/L 139 Potassium 3.7 - 5.1 mmol/L 4.4 Chloride 98 - 107 mmol/L 101 CO2 22 - 30 mmol/L 27 Anion Gap 8 - 15 mmol/L 11 eGFR >=60 mL/min/1.73m? 78 Hemoglobin A1C 4.3 - 5.6 % 5.9 (H) Estimated Average Glucose mg/dL 123 Latest Ref Rng 10/11/2023 Cholesterol, Total <200 mg/dL 120 Triglyceride <150 mg/dL 75 HDL Cholesterol >39 mg/dL 39 (L) Non HDL Cholesterol <130 mg/dL 81 Fasting Time hrs 10 VLDL Cholesterol <30 mg/dL 15 TC:HDL Ratio <5.10 3.08 LDL Cholesterol <100 mg/dL 66 LDL:HDL Ratio <2.54 1.69 Legend: (L) Low Legend: (H) High BP Controlled (<130/80) Never done DTaP,Tdap,Td Vaccine(1 - Tdap) Never done Colorectal Cancer Screening Never done Lung Cancer Screening Never done Shingrix Vaccine(1 of 2) Never done Pneumococcal Vaccine: 50+(1 of 1 - PCV) Never done Prostate Cancer Screening Discussion Never done Influenza Vaccine(1) Never done Covid-19 Vaccine(3 (more content not included)... Normal [facility] Comprehensive metabolic 2000 panelon 11-07-2024 Albumin [Mass/Vol] 4.4 g/dL Normal 3.9-4.9 [facility] Comment on above: Order Comment: Speci men Type: BLOOD SPECIMEN Ordering Facility: [facility] Address: [address] [place] [address] Performed By: #### 2 4323-8, 79560-3 #### [facility] CLIA [id number] [address] [place] [address] [place] ALP [Catalytic activity/Vol] 100 U/L Normal 38-113 [facility] Comment on above: Order Comment: Speci men Type: BLOOD SPECIMEN Ordering Facility: [facility] Address: [address] [place] [address] Performed By: #### 2 4323-8, 56696-5 #### [facility] CLIA [id number] [address] [place] [address] [place] ALT [Catalytic activity/Vol] 48 U/L Normal 10-54 [facility] Comment on above: Order Comment: Speci men Type: BLOOD SPECIMEN Ordering Facility: [facility] Address: [address] [place] [address] Performed By: #### 2 4323-8, 16860-1 #### [facility] CLIA [id number] [address] [place] [address] [place] Anion gap [Moles/Vol] 14 mmol/L Normal 8-15 [facility] Comment on above: Order Comment: Speci men Type: BLOOD SPECIMEN Ordering Facility: [facility] Address: [address] [place] [address] Performed By: #### 2 4323-8, 18987-0 #### [facility] CLIA [id number] [address] [place] [address] [place] AST [Catalytic activity/Vol] 32 U/L Normal 14-40 [facility] Comment on above: Order Comment: Speci men Type: BLOOD SPECIMEN Ordering Facility: [facility] Address: [address] [place] [address] Performed By: #### 2 4323-8, 53217-3 #### [facility] CLIA [id number] [address] [place] [address] [place] Bilirubin [Mass/Vol] 0.4 mg/dL Normal 0.2-1.3 [facility] Comment on above: Order Comment: Speci men Type: BLOOD SPECIMEN Ordering Facility: [facility] Address: [address] [place] [address] Performed By: #### 2 4323-8, 32804-3 #### [facility] CLIA [id number] [address] [place] [address] [place] Calcium [Mass/Vol] 9.4 mg/dL Normal 8.5-10.2 [facility] Comment on above: Order Comment: Speci men Type: BLOOD SPECIMEN Ordering Facility: [facility] Address: [address] [place] [address] Performed By: #### 2 4323-8, 00467-9 #### [facility] CLIA [id number] [address] [place] [address] [place] Chloride [Moles/Vol] 103 mmol/L Normal 98-107 [facility] Comment on above: Order Comment: Speci men Type: BLOOD SPECIMEN Ordering Facility: [facility] Address: [address] [place] [address] Performed By: #### 2 4323-8, 53763-4 #### [facility] CLIA [id number] [address] [place] [address] [place] CO2 [Moles/Vol] 23 mmol/L Normal 22-30 [facility] Comment on above: Order Comment: Speci men Type: BLOOD SPECIMEN Ordering Facility: [facility] Address: [address] [place] [address] Performed By: #### 2 4323-8, 88800-7 #### [facility] CLIA [id number] [address] [place] [address] [place] Creatinine [Mass/Vol] 0.97 mg/dL Normal 0.73-1.22 [facility] Comment on above: Order Comment: Speci men Type: BLOOD SPECIMEN Ordering Facility: [facility] Address: [address] [place] [address] Performed By: #### 2 4323-8, 64772-1 #### [facility] CLIA [id number] [address] [place] [address] [place] Creatinine and Glomerular filtration rate.predicted panel (S/P/Bld) 89 mL/min/1.73m??? Normal >=60 [facility] Comment on above: Order Comment: Speci men Type: BLOOD SPECIMEN Ordering Facility: [facility] Address: [address] [place] [address] Result Comment: Rody mated Glomerular Filtration Rate (eGFR) is calculated using the 2020 CKD-EPI creatinine equation. This equation utilizes serum creatinine, sex, and age as parameters. The creatinine assay has traceable calibration to isotope dilution-mass spectrometry. Refer to KDIGO guidelines for clinical interpretation. In patients with unstable renal function, e.g. those with acute kidney injury, the eGFR may not accurately reflect actual GFR. Performed By: #### 2 4323-8, 90844-3 #### [facility] CLIA [id number] [address] [place] [address] [place] Glucose [Mass/Vol] 105 mg/dL High 74-99 [facility] Comment on above: Order Comment: Vincei men Type: BLOOD SPECIMEN Ordering Facility: [facility] Address: [address] [place] [address] Result Comment: The [place] Diabetes Association (ADA) provides guidance for cutoff values for fasting glucose and random glucose. The ADA defines fasting as no caloric intake for at least 8 hours. Fasting plasma glucose results between 100 to 125 mg/dL indicate increased risk for diabetes (prediabetes). Fasting plasma glucose results greater than or equal to 126 mg/dL meet the criteria for diagnosis of diabetes. In the absence of unequivocal hyperglycemia, results should be confirmed by repeat testing. In a patient with classic symptoms of hyperglycemia or hyperglycemic crisis, random plasma glucose results greater than or equal to 200 mg/dL meet the criteria for diagnosis of diabetes. Reference: Standards of Medical Care in Diabetes 2016, [place] Diabetes Association. Diabetes Care. 2016.39(Suppl 1). Performed By: #### 2 4323-8, 95620-1 #### [facility] CLIA [id number] [address] [place] [address] [place] Potassium [Moles/Vol] 3.7 mmol/L Normal 3.7-5.1 [facility] Comment on above: Order Comment: Speci men Type: BLOOD SPECIMEN Ordering Facility: [facility] Address: [address] [place] [address] Performed By: #### 2 4323-8, 40891-5 #### [facility] CLIA [id number] [address] [place] [address] [place] Protein [Mass/Vol] 7.9 g/dL Normal 6.3-8.0 [facility] Comment on above: Order Comment: Vincei men Type: BLOOD SPECIMEN Ordering Facility: [facility] Address: [address] [place] [address] Performed By: #### 2 4323-8, 62694-2 #### [facility] CLIA [id number] [address] [place] [address] [place] Sodium [Moles/Vol] 140 mmol/L Normal 136-144 [facility] Comment on above: Order Comment: Speci men Type: BLOOD SPECIMEN Ordering Facility: [facility] Address: [address] [place] [address] Performed By: #### 2 4323-8, 60499-1 #### [facility] CLIA [id number] [address] [place] [address] [place] Urea nitrogen [Mass/Vol] 17 mg/dL Normal 9-24 [facility] Comment on above: Order Comment: Artur craven Type: BLOOD SPECIMEN Ordering Facility: [facility] Address: [address] [place] [address] Performed By: #### 2 4323-8, 65249-0 #### [facility] CLIA [id number] [address] [place] [address] [place] HbA1c (Bld)on 11-07-2024 Average glucose Estimated from glycated hemoglobin (Bld) [Mass/Vol] 128 mg/dL Normal [facility] Comment on above: Order Comment: Artur craven Type: BLOOD SPECIMEN Ordering Facility: [facility] Address: [address] [place] [address] Result Comment: eAG: (Estimated average glucose) is a calculated value from HgbA1c and is lead customer service representative of the average blood glucose level in the last 2-3 month period. Performed By: #### 5 5454-3 #### [facility] CLIA [id number] [address] [place] [address] [place] HbA1c (Bld) [Mass fraction] 6.1 % High 4.3-5.6 [facility] Comment on above: Order Comment: Artur craven Type: BLOOD SPECIMEN Ordering Facility: [facility] Address: [address] [place] [address] Result Comment: [place] Diabetes Association guidelines indicate that patients with HgbA1c in the range 5.7-6.4% are at increased risk for development of diabetes, and intervention by lifestyle modification may be beneficial. HgbA1c greater or equal to 6.5% is considered diagnostic of diabetes. Performed By: #### 5 5454-3 #### [facility] CLIA [id number] [address] [place] [address] [place] Lipid 1996 panelon 5 Cholesterol [Mass/Vol] 134 mg/dL Normal <200 [facility] Comment on above: Order Comment: Artru men Type: BLOOD SPECIMEN Ordering Facility: [facility] Address: [address] [place] [address] Result Comment: <200 mg/dL, Desirable 200-239 mg/dL, Borderline high >239 mg/dL, High Performed By: #### 2 4323-8, 53630-2 #### [facility] CLIA [id number] [address] [place] [address] [place] Cholesterol in HDL [Mass/Vol] 36 mg/dL Low >39 [facility] Comment on above: Order Comment: Artur men Type: BLOOD SPECIMEN Ordering Facility: [facility] Address: [address] [place] [address] Result Comment: 40-5 9 mg/dL, Acceptable >59 mg/dL, High: Negative risk factor for coronary heart disease <40 mg/dL, Low: Positive risk factor for coronary heart disease Performed By: #### 2 4323-8, 69085-0 #### [facility] CLIA [id number] [address] [place] [address] [place] Cholesterol in LDL [Mass/Vol] 80 mg/dL Normal <100 [facility] Comment on above: Order Comment: Artur men Type: BLOOD SPECIMEN Ordering Facility: [facility] Address: [address] [place] [address] Result Comment: <100 mg/dL, Optimal 100-129 mg/dL, Near optimal/above optimal 130-159 mg/dL, Borderline high 160-189 mg/dL, High >189 mg/dL, Very high Secondary prevention optimal LDL Cholesterol levels are recommended to be < 70 mg/dL Performed By: #### 2 4323-8, 77891-7 #### [facility] CLIA [id number] [address] [place] [address] [place] Cholesterol in LDL/Cholesterol in HDL [Mass ratio] 2.22 {ratio} Normal <2.54 [facility] Comment on above: Order Comment: Vincei men Type: BLOOD SPECIMEN Ordering Facility: [facility] Address: [address] [place] [address] Result Comment: Chau vidal: 1. National Cholesterol Education Program ATP III Guideline At-A-Glance Quick Desk Reference: National Heart, Lung, and Blood Deputy. National Institutes of Health. 2001: NIH Publication No. 01-3305. 2. An International Atherosclerosis Society position paper: global recommendations for the management of dyslipidemia: executive summary, Atherosclerosis. 2014: 232(2):410-413. Performed By: #### 2 4323-8, 98479-8 #### [facility] CLIA [id number] [address] [place] [address] [place] Cholesterol in VLDL [Mass/Vol] 18 mg/dL Normal <30 [facility] Comment on above: Order Comment: Artur craven Type: BLOOD SPECIMEN Ordering Facility: [facility] Address: [address] [place] [address] Performed By: #### 2 4323-8, 18024-8 #### [facility] CLIA [id number] [address] [place] [address] [place] Cholesterol non HDL [Mass/Vol] 98 mg/dL Normal <130 [facility] Comment on above: Order Comment: Artur craven Type: BLOOD SPECIMEN Ordering Facility: [facility] Address: [address] [place] [address] Result Comment: <130 mg/dL, Optimal 130-159 mg/dL, Near optimal/above optimal 160-189 mg/dL, Borderline high 190-219 mg/dL, High >219 mg/dL, Very high Secondary prevention optimal non HDL Cholesterol levels are recommended to be <100 mg/dL Performed By: #### 2 4323-8, 09160-6 #### [facility] CLIA [id number] [address] [place] [address] [place] Cholesterol.total/Cho lesterol in HDL [Mass ratio] 3.72 {ratio} Normal <5.10 [facility] Comment on above: Order Comment: Artur craven Type: BLOOD SPECIMEN Ordering Facility: [facility] Address: [address] [place] [address] Performed By: #### 2 4323-8, 66463-4 #### [facility] CLIA [id number] [address] [place] [address] [place] FASTING TIME 12 hrs Normal [facility] Comment on above: Order Comment: Speci men Type: BLOOD SPECIMEN Ordering Facility: [facility] Address: [address] [place] [address] Performed By: #### 2 4323-8, 10750-6 #### [facility] CLIA [id number] [address] [place] [address] [place] Triglyceride [Mass/Vol] 92 mg/dL Normal <150 [facility] Comment on above: Order Comment: Speci men Type: BLOOD SPECIMEN Ordering Facility: [facility] Address: [address] [place] [address] Result Comment: <150 mg/dL, Normal 150-199 mg/dL, Borderline high 200-499 mg/dL, High >499 mg/dL, Very high Performed By: #### 2 4323-8, 07397-5 #### [facility] CLIA [id number] [address] [place] [address] [place] Culture, Anaerobic Any Sourc morro 10-22-2024 CUAN List Antibiotics Las t 48 Hours? none List Antibiotics to be Started? none #1,3 Studies Have Confirmed That B. Fragilis Group are Routinely Susceptible to: Metronidazole, Piperacillin/Tazobactam, Amoxicillin/Clavulanic acid, and Ertapenem. They are showing an increased RESISTANCE to Penicillin, Clindamycin and Moxifloxacin. Bacteria Spec Anaerobe Cult #2 Studies have confirmed that Anaerobic Gram Positive Cocci are routinely SUSCEPTABLE to Penicillin and generally susceptible to Beta-lactams and Beta-lactamase inhibitors, Cephalosporins, Carbapenems and Metronidazole. They are showing increased RESISTANCE to Clindamycin Bacteroides ovatus Beta Lactamase-Reportable Positive Anaerobic cocci Parabacteroides distasonis Beta Lactamase-Reportable Positive Normal [facility] Comment on above: Performed By: #### M 100.4001, M100.3000, M1 #### [facility] [address] [place], [place], [address] Wound Cultureon 10-22-2024 List Antibiotics Las t 48 Hours? none List Antibiotics to be Started? none #2, 3, 4 Susceptibility not normally performed on this organism. Serratia marcescens Amount Growth 1+ Corynebacterium amycolatum/xer Corynebacterium amycolatum/xer CMIN Amount Growth 1+ Corynebacterium minutissimum Amount Growth 1+ Serratia marcescens: REACTION Pseudopropionibacterium propio cefTRIAXone Islt ODELL <=0.25 Ciprofloxacin Islt ODELL 0.12 S Gentamicin Islt ODELL <=1 levoFLOXacin Islt ODELL <=0.12 S Meropenem Islt ODELL <=0.25 S TMP SMX Islt ODELL <=20 S Normal [facility] Comment on above: Performed By: #### M 100.4001, M100.3000, #### [facility] [address] [place], [place], [address] Gram Stainon 10-17-2024 List Antibiotics Las t 48 Hours? none List Antibiotics to be Started? none Gram Stain Rare Gram negative rods Rare Gram positive cocci No White Blood Cells No Epithelial cells Normal [facility] Comment on above: Performed By: #### M 100.4001, M100.3000, M1 #### [facility] [address] [place], [address] Bacteria identified Anaer cx Nom (Unsp spec)Ordered By: Alice Amaya on 10-16-2024 Anaerobic Culture Bacteroides ovatus Abnormal [facility] Anaerobic Culture Anaerobic cocci Abnormal [facility] Anaerobic Culture Parabacteroides distasonis Abnormal [facility] Gram stainOrdered By: Jorgito Amaya on 10-16-2024 Microscopic observation Gram stain Nom (Unsp spec) [facility] Routine wound cultureOrdered By: Alice Amaya on 10-16-2024 Wound Culture Serratia marcescens Abnormal [facility] Wound Culture Corynebacterium amycolatum/xer Abnormal [facility] Wound Culture Corynebacterium minutissimum Abnormal [facility] Wound Culture Pseudopropionibacter ium propio Abnormal [facility] Culture, Anaerobic Any Sourc morro 08-31-2024 CUAN List Antibiotics Las t 48 Hours? none List Antibiotics to be Started? none left ankle No anaerobic bacteria isolated. Normal [facility] Comment on above: Performed By: #### M 100.4001, M100.3000, #### [facility] [address] [place], [place], [id number] Wound Cultureon 08-31-2024 WC List Antibiotics Las t 48 Hours? none List Antibiotics to be Started? none left ankle #2 Gram positive anna suggestive of a diphtheroid. Susceptibility not normally performed on this organism Meth. resistant Staph. aureus Amount Growth 3+ mecA Testing not performed CJEI Amount Growth 2+ Meth. resistant Staph. aureus: REACTION cefOXitin Susc Islt POS Doxycycline Islt ODELL <=0.5 S Clindamycin.induced Susc Islt Erythromycin Islt ODELL >=8 R Gentamicin Islt ODELL <=0.5 S Linezolid Islt ODELL 2 S Oxacillin Susc Islt >=4 R Tetracycline Islt ODELL <=1 S TMP SMX Islt ODELL <=10 S Vancomycin Islt ODELL 1 S Normal [facility] Comment on above: Performed By: #### M 100.4001, M100.3000, #### [facility] [address] [place], [place], [address] Gram Stainon 08-29-2024 GS List Antibiotics Las t 48 Hours? none List Antibiotics to be Started? none left ankle Gram Stain 1+ White Blood Cells 4+ Red Blood Cells 2+ Gram positive cocci Rare Gram positive rods Normal [facility] Comment on above: Performed By: #### M 100.4001, M100.3000, #### [facility] [address] [place], [address] Wound Ctr History AND Physic segundo 07-31-2024 Wound Ctr History & Physical [facility] [address] [place] [address] H P Exam - Wound Care 07/31/24 0850 MR#: [id number] Acct: [id number] Name: RUBEN ALLEN Jr. Rep #: [id number] : 1965 59 From: Tyler Todd DPM PCP: Dr. George Frausto MD Status:REG RCR Location: History of Present Illness Date of Service: 07/31/24 Chief Complaint: ulcers to the left lower leg History of Wound: This is a 54-year-old male presents to wound healing center with a long-standing history of chronic venous insufficiency, chronic venous hypertension, lower extremity edema, lower extremity pain, and chronic left lower extremity ulcer. 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 He is currently wearing graduated compression stockings which are documented to be 20-30 mmHg compression and these are thigh high. He reports great compliance with use. He is also had previous arterial work-up with no intervention recommended by letter, his vascular surgeon. He denies taking nutritional supplementation. He saw dermatology and had a biopsy of the ulcer site. He also was previously treated by infectious disease for various contaminations and infections. He is not antibiotics at this time nor does he have any redness or odor coming from the wound. He denies fever, chill, nausea, vomiting, loss of appetite. 05/18/22: Mr. Allen presents with a new right lower extremity ulceration. He states that this has been present for months and he has been trying to manage it at home without any significant improvement. Opened up months ago, no known precipitating factor. Has been applying wound dressings without any significant improvement. He reports increased drainage. Denies significant pain. No chills, fever or feeling of unwell. He has been following with Dr. Amaya in the wound care center for continued healing of the left lower extremity. [facility] Medical History Former smoker History of edema MRSA infection Stasis ulcer Ulcer of right lower extremity with fat layer exposed Home Medications ???Medication ???Instructions ???Recorded ???Last Taken ???Type aspirin 81 mg chewable tablet 81 mg PO DAILY@0800 HEALTH 07/04/18 07/17/21 History ibuprofen 200 mg tablet 400 mg PO Q6H PRN PRN Pain 07/04/18 07/18/21 History atorvastatin 20 mg tablet 20 mg PO QHS CHOLESTEROL 07/18/21 07/17/21 History hydrochlorothiazide 25 mg tablet 25 mg PO DAILY BP 07/18/21 07/18/21 History amoxicillin 875 mg-potassium 1 tab PO Q12H #14 tabs 06/25/23 Unknown Rx clavulanate 125 mg tablet mupirocin 2 % topical ointment 1 applic topical DAILY #22 grams 02/04/24 Unknown Rx Allergy/AdvReac Type Severity Reaction Status Date / Time ciprofloxacin (From Cipro) Allergy Rash Verified 10/12/22 10:32 ciprofloxacin HCl (From Allergy Rash Verified 10/12/22 10:32 Cipro) Social History Smoking Status: Former smoker ROS Constitutional Constitutional: Denies anorexia, change in weight, chills, fatigue or fever(s) Eyes Eyes: Denies blurry vision, change in vision or double vision ENT HEENT: Denies dysphagia, nasal congestion, nasal discharge or sore throat Cardiovascular Cardiovascular: Denies chest pain, claudication or palpitations Respiratory/Chest Respiratory/Chest: Denies cough, shortness of breath at rest or wheezing Gastrointestinal Gastrointestinal: Denies abdominal pain, constipation, diarrhea, nausea or vomiting Genitourinary Genitourinary: Denies dysuria, hematuria or urinary urgency Musculoskeletal Musculoskeletal: Denies joint pain, joint stiffness or joint swelling Integumentary Integumentary: Denies jaundice, lesions, pruritus or rash Neurologic Neurologic: Denies dizziness, numbness or seizures Psychiatric Psychiatric: Denies anxiety or depression Endocrine Endocrinology: Denies cold intolerance or heat intolerance Hematologic/Lymphatic Hematologic/Lymphatic: Denies easy bleeding or easy bruising Vital Signs Vital Signs Vital Signs: 07/31/24 07:57 Temperature 96.8 F L Temperature Source Temporal Pulse Rate 82 Respiratory Rate 18 Blood Pressure 149/76 H Blood Pressure Mean 100 Blood Pressure Source Monitor Blood Pressure Position Sitting Blood Pressure Location Left Arm Oxygen Delivery Method Room Air Weight Body Mass Index (BMI) 31.4 Physical Exam Const alert, oriented x3 and no apparent distress General Appearance: cooperative HEENT normocephalic Eyes General Eye: normal appearance of (more content not included)... Normal [facility] Bacteria identified Anaer cx Nom (Unsp spec)Ordered By: Efewongbe Jose Luis on 09-13-2023 Anaerobic Culture Anaerobic cocci [facility] Bacteria identified Cx Nom ( Wound)Ordered By: Efewongbe Laurene on 09-13-2023 Wound Culture Staphylococcus epidermidis [facility] Wound Culture Escherichia coli [facility] Wound Culture Pseudomonas aeruginosa [facility] Wound Culture Corynebacterium jeikeium [facility] Gram stain for investigation of transfusion reactionOrdered By: Efewongbe Laurene on 09-13-2023 Microscopic observation Gram stain Nom (Unsp spec) [facility] Bacteria identified Anaer cx Nom (Unsp spec)Ordered By: Efewongbe Laurene on 06-21-2023 Anaerobic Culture Anaerobic cocci [facility] Bacteria identified Cx Nom ( Wound)Ordered By: Efewongbe Laurene on 06-21-2023 Wound Culture Escherichia coli [facility] Wound Culture Pseudomonas aeruginosa [facility] Wound Culture Staphylococcus epidermidis [facility] Gram stain for investigation of transfusion reactionOrdered By: Efewongbe Laurene on 06-21-2023 Microscopic observation Gram stain Nom (Unsp spec) [facility] HbA1c (Bld)on 11-01-2022 Average glucose Estimated from glycated hemoglobin (Bld) [Mass/Vol] 123 mg/dL [facility] HbA1c (Bld) [Mass fraction] 5.9 % High 4.3 - 5.6 % [facility] CBC W Auto Differential pane l (Bld)on 10-28-2022 Basophils (Bld) [#/Vol] 0.04 10*3/uL <0.11 k/uL [facility] Basophils/100 WBC (Bld) 0.6 % [facility] Differential cell count method Nom (Bld) Auto [facility] Eosinophils (Bld) [#/Vol] 0.15 10*3/uL <0.46 k/uL [facility] Eosinophils/100 WBC (Bld) 2.3 % [facility] Erythrocyte distribution width (RBC) [Ratio] 13.2 % 11.5 - 15.0 % [facility] Hematocrit (Bld) [Volume fraction] 45.1 % 39.0 - 51.0 % [facility] Hemoglobin (Bld) [Mass/Vol] 15.7 g/dL 13.0 - 17.0 g/dL [facility] Immature granulocytes (Bld) [#/Vol] <0.10 k/uL [facility] Immature granulocytes/100 WBC (Bld) 0.3 % [facility] Lymphocytes (Bld) [#/Vol] 1.79 10*3/uL 1.00 - 4.00 k/uL [facility] Lymphocytes/100 WBC (Bld) 27.2 % [facility] MCH (RBC) [Entitic mass] 31.0 pg 26.0 - 34.0 pg [facility] MCHC (RBC) [Mass/Vol] 34.8 g/dL 30.5 - 36.0 g/dL [facility] MCV (RBC) [Entitic vol] 89.0 fL 80.0 - 100.0 fL [facility] Monocytes (Bld) [#/Vol] 0.96 10*3/uL High <0.87 k/uL [facility] Monocytes/100 WBC (Bld) 14.6 % [facility] Neutrophils (Bld) [#/Vol] 3.62 10*3/uL 1.45 - 7.50 k/uL [facility] Neutrophils/100 WBC (Bld) 55.0 % [facility] Nucleated RBC (Bld) [#/Vol] <0.01 k/uL [facility] Nucleated RBC/100 WBC (Bld) [Ratio] 0.0 /100 WBC [facility] Platelet mean volume (Bld) [Entitic vol] 11.7 fL 9.0 - 12.7 fL [facility] Platelets (Bld) [#/Vol] 181 10*3/uL 150 - 400 k/uL [facility] RBC (Bld) [#/Vol] 5.07 10*6/uL 4.20 - 6.0 0 m/uL [facility] WBC (Bld) [#/Vol] 6.58 10*3/uL 3.70 - 11.00 k/uL [facility] Comprehensive metabolic 2000 panelon 10-28-2022 Albumin [Mass/Vol] 4.3 g/dL 3.9 - 4.9 g/dL [facility] ALP [Catalytic activity/Vol] 116 U/L High 38 - 113 U/L [facility] ALT [Catalytic activity/Vol] 36 U/L 10 - 54 U/L [facility] Anion gap [Moles/Vol] 10 mmol/L 9 - 18 mmol/L [facility] AST [Catalytic activity/Vol] 27 U/L 14 - 40 U/L [facility] Bilirubin [Mass/Vol] 0.3 mg/dL 0.2 - 1 .3 mg/dL [facility] Calcium [Mass/Vol] 9.7 mg/dL 8.5 - 10. 2 mg/dL [facility] Chloride [Moles/Vol] 103 mmol/L 97 - 10 5 mmol/L [facility] CO2 [Moles/Vol] 27 mmol/L 22 - 30 mmol/L [facility] Creatinine [Mass/Vol] 1.14 mg/dL 0.73 - 1.22 mg/dL [facility] Estimated Glomerular Filtration Rate 74 mL/min/1.73m >=60 mL/min/1.73 m [facility] Glucose [Mass/Vol] 141 mg/dL High 74 - 99 mg/dL [facility] Potassium [Moles/Vol] 3.7 mmol/L 3.7 - 5.1 mmol/L [facility] Protein [Mass/Vol] 7.7 g/dL 6.3 - 8.0 g/dL [facility] Sodium [Moles/Vol] 140 mmol/L 136 - 144 mmol/L [facility] Urea nitrogen [Mass/Vol] 24 mg/dL 9 - 24 mg/dL [facility] LIPID PANEL, NONFASTINGon Cholesterol [Mass/Vol] 124 mg/dL <200 mg/dL [facility] HDL Cholesterol, Nonfasting 36 mg/dL Low >39 mg/dL [facility] LDL Cholesterol, Nonfasting 75 mg/dL <100 [facility], Nonfasting 2.08 mg/dL <2.54 mg/dL [facility] Non HDL Cholesterol, Nonfasting 88 mg/dL <130 mg/dL [facility] Total Chol/HDL Ratio, Nonfasting 3.44 mg/dL <5.10 mg/dL [facility] Triglycerides, Nonfasting 67 mg/dL <150 mg/dL [facility] VLDL Cholesterol, Nonfasting 13 mg/dL <30 mg/dL [facility] Basophil percentageon 2021 Chloride [Moles/Vol] 110 mmol/L 98-[address] [facility] Work Phone: Glucose [Mass/Vol] 98 mg/dL 74-106 [facility] Work Phone: Potassium [Moles/Vol] 3.4 mmol/L 3.5-5.1 [facility] Work Phone: Sodium [Moles/Vol] 142 mmol/L 136-145 [facility] Work Phone: WBC (Bld) [#/Vol] 7.0 10*3/uL 4.4-11.0 [facility] Work Phone: Blood erythrocytes count (nu mber/volume)on 06-29-2022 RBC (Bld) [#/Vol] 4.84 10*6/uL 4.6-6.2 [facility] Work Phone: Blood hemoglobin measurement (mass/volume)on 06-29-2022 Hemoglobin (Bld) [Mass/Vol] 14.3 g/dL 13.0-16.5 [facility] Work Phone: Blood platelet mean volumeon 06-29-2022 Platelet mean volume (Bld) [Entitic vol] 11.5 fL 6.2-12.0 [facility] Work Phone: Determination of erythrocyte mean corpuscular volume (MCV)on 06-29-2022 MCV (RBC) [Entitic vol] 88.6 fL 80-94 [facility] Work Phone: Hematocrit Auto (Bld) [Volum e fraction]on 06-29-2022 Hematocrit (Bld) [Volume fraction] 42.9 % 40-54 [facility] Work Phone: Laboratory - Chemistry and C hemistry - challengeon 06-29-2022 CO2 [Moles/Vol] 27.0 mmol/L 21.0-32.0 [facility] Work Phone: Urea nitrogen/Creatinine [Mass ratio] 17.5 mg/mg 10-20 [facility] Work Phone: Laboratory - Hematology and Cell countson 06-29-2022 Erythrocyte distribution width (RBC) [Entitic vol] 44.7 fL 35.1-43.9 [facility] Work Phone: Erythrocyte distribution width (RBC) [Ratio] 13.8 % 11.6-14.6 [facility] Work Phone: MCH (RBC) [Entitic mass] 29.5 pg 27.0-32.0 [facility] Work Phone: MCHC Auto (RBC) [Mass/Vol]on 06-29-2022 MCHC (RBC) [Mass/Vol] 33.3 g/dL 32-36 [facility] Work Phone: No Panel Informationon 06-29 Estimated GFR (MDRD) Amer 85 mL/min >60 [facility] Work Phone: Comment on above: GFR Calc Estimated GFR (MDRD) Non-Af Amer 70 mL/min >60 [facility] Work Phone: Comment on above: Non- GFR Calc Platelets bldon 06-29-2022 Platelets (Bld) [#/Vol] 166 10*3/uL 150-450 [facility] Work Phone: Serum or plasma calcium prem urement (mass/volume)on 06-29-2022 Calcium [Mass/Vol] 8.5 mg/dL 8.5-10.1 [facility] Work Phone: Serum or plasma creatinine m easurement (mass/volume)on 06-29-2022 Creatinine [Mass/Vol] 1.14 mg/dL 0.70-1.30 [facility] Work Phone: Comment on above: The validity of the calculated GFR & GFRAA in patients over 70 years has not been determined. Clinical correlation is essential. Serum or plasma urea nitroge n measurement (mass/volume)on 06-29-2022 Urea nitrogen [Mass/Vol] 20 mg/dL 7-18 [facility] Work Phone: Thin prep Papanicolaou smear with manual screeningon 06-29-2022 Thin prep Papanicolaou smear with manual screening 5 5-15 [facility] Work Phone: CORONAVIRUS PCR - [facility] 08-09-2021 SARS-CoV-2 (COVID-19) RNA SHIVANI+probe Ql (Unsp spec) Positive Critically abnormal NORMAL: NEGATIVE [facility] Comment on above: Result Comment: { CA LLED TO FAXED TO AG { READ BACK BY Performed By: [id number] #### [facility],[address] [place] [address] SEND TO IC? YES Normal [facility] Comment on above: Result Comment: RESU LTS FAXED TO INFECTION CONTROL. SARS-CoV-2 THIS TEST IS BEING USED UNDER THE FDA EUA PROCEDURE. THIS ASSAY HAS BEEN VALIDATED IN THE [facility] FOR USE WITH NASOPHARYNGEAL SPECIMENS IN [facility]. INTERPRETIVE DATA LABORATORY TEST RESULTS SHOULD ALWAYS BE CONSIDERED IN THE CONTEXT OF CLINICAL OBSERVATIONS AND EPIDEMIOLOGICAL DATA IN MAKING FINAL DIAGNOSIS AND PATIENT MANAGEMENT DECISIONS. PATIENT MANAGEMENT SHOULD FOLLOW CURRENT CDC GUIDELINES. A POSITIVE TEST RESULT FOR COVID-19 INDICATES THAT RNA FROM SARS-CoV-2 WAS DETECTED, AND THE PATIENT IS INFECTED WITH THE VIRUS AND PRESUMED TO BE CONTAGIOUS. A NEGATIVE TEST RESULT FOR THIS TEST MEANS THAT SARS-CoV-2 RNA WAS NOT PRESENT IN THE SPECIMEN ABOVE THE LIMIT OF DETECTION. HOWEVER, A NEGATVIE RESULT DOES NOT RULE OUT COVID-19 AND SHOULD NOT BE USED THE SOLE BASIS FOR TREATMENT OR PATIENT MANAGEMENT DECISIONS. A NEGATIVE RESULT DOES NOT EXCLUDE THE POSSIBILITY OF COVID-19. WHEN DIAGNOSTIC TESTING IS NEGATIVE, THE POSSIBLILTY OF A FALSE NEGATIVE RESULT SHOULD BE CONSIDERED IN THE CONTEXT OF A PATIENT'S RECENT EXPOSURES AND THE PRESENCE OF CLINICAL SIGNS AND SYMPTOMS CONSISTENT WITH COVID-19. THE POSSIBILITY OF A FALSE NEGATIVE RESULT SHOULD ESPECIALLY BE CONSIDERED IF THE PATIENT'S RECENT EXPOSURES OR CLINICAL PRESENTATION INDICATE THAT COVID-19 IS LIKELY, AND DIAGNOSTIC TESTS FOR OTHER CAUSES OF ILLNESS (e.g., OTHER RESPIRATORY ILLNESS) ARE NEGATIVE. IF COVID-19 IS STILL SUSPECTED BASED ON EXPOSURE HISTORY TOGETHER WITH OTHER CLINICAL FINDINGS, RE-TESTED SHOULD BE CONSIDERED BY HEALTHCARE PROVIDERS IN CONSULTATION WITH PUBLIC HEALTH AUTHORITIES. Performed By: #### [id number] #### [facility],[address] [facility] [address] Bacteria identified Anaer cx Nom (Unsp spec) Anaerobic Culture Anaerobic cocci [facility] Work Phone: Anaerobic Culture Bacteroides thetaiotaomicron [facility] Work Phone: Anaerobic microbial culture No anaerobic bacteria isolated. [facility] Work Phone: Bacteria identified Cx Nom ( Wound) Wound Culture Escherichia coli [facility] Work Phone: Wound Culture Staphylococcus epidermidis [facility] Work Phone: Wound Culture Actinomyces naeslundii [facility] Work Phone: Wound Culture Corynebacterium amycolatum [facility] Work Phone: Wound Culture Escherichia coli#2 [facility] Work Phone: Gram stain for investigation of transfusion reaction Microscopic observation Gram stain Nom (Unsp spec) [facility] Work Phone: Vital Signs Date Time Vital Sign Value Performing Clinician Alyssia ortiz 05-08-2025 07:40-0400 Body mass index (BMI) [Ratio] 40.45 kg/m2 Bhavana Podlogar [employer] SUPERVIS[employer] Work Phone: [facility] 05-08-2025 07:40-0400 Body weight 120.66 kg Bhavana Podlogar [employer] SUPERVISOR.[employer] Work Phone: [facility] 05-08-2025 07:40-0400 Diastolic blood pressure 76 mm[Hg] Bhavana Podlogar [employer] SUPERVISOR.[employer] Work Phone: [facility] 05-08-2025 07:40-0400 Heart rate 76 /min Bhavana Podlogar [employer] SUPERVISOR.[employer] Work Phone: [facility] 05-08-2025 07:40-0400 Respiratory rate 14 /min Bhavana Rosales [employer] SUPERVISOR.[employer] Work Phone: [facility] 05-08-2025 07:40-0400 Systolic blood pressure 134 mm[Hg] Bhavana Rosales [employer] SUPERVISOR.[employer] Work Phone: [facility] 04-16-2025 08:49-0400 Body mass index (BMI) [Ratio] 31.4 kg/m2 Dr. Alice Amaya MD Work Phone: [facility] 04-16-2025 08:49-0400 Body temperature 97.3 [degF] Dr. Alice Amaya MD Work Phone: [facility] 04-16-2025 08:49-0400 Diastolic blood pressure 82 mm[Hg] Dr. Alice Amaya MD Work Phone: [facility] 04-16-2025 08:49-0400 Heart rate 104 /min Dr. Alice Amaya MD Work Phone: [facility] 04-16-2025 08:49-0400 Respiratory rate 18 /min Dr. Alice Amaya MD Work Phone: [facility] 04-16-2025 08:49-0400 Systolic blood pressure 162 mm[Hg] Dr. Alice Amaya MD Work Phone: [facility] 04-14-2025 13:58-0400 Body temperature 98.2 [degF] Dr. Alice Amaya MD Work Phone: [facility] 04-14-2025 13:58-0400 Body weight 119.[address] Alice Amaya MD Work Phone: [facility] 04-14-2025 13:58-0400 Diastolic blood pressure 88 mm[Hg] Dr. Alice Amaya MD Work Phone: [facility] 04-14-2025 13:58-0400 Heart rate 89 /min Dr. Alice Amaya MD Work Phone: [facility] 04-14-2025 13:58-0400 Respiratory rate 16 /min Dr. Alice Amaya MD Work Phone: [facility] 04-14-2025 13:58-0400 SaO2% (BldA) [Mass fraction] 96 % Dr. Alice Amaya MD Work Phone: [facility] 04-14-2025 13:58-0400 Systolic blood pressure 141 mm[Hg] Dr. Alice Amaya MD Work Phone: [facility] 04-09-2025 08:15-0400 Body mass index (BMI) [Ratio] 31.4 kg/m2 Dr. Alice Amaya MD Work Phone: [facility] 04-09-2025 08:15-0400 Body temperature 97.3 [degF] Dr. Alice Amaya MD Work Phone: [facility] 04-09-2025 08:15-0400 Diastolic blood pressure 86 mm[Hg] Dr. Alice Amaya MD Work Phone: [facility] 04-09-2025 08:15-0400 Heart rate 78 /min Dr. Alice Amaya MD Work Phone: [facility] 04-09-2025 08:15-0400 Respiratory rate 18 /min Dr. Alice Amaya MD Work Phone: [facility] 04-09-2025 08:15-0400 Systolic blood pressure 149 mm[Hg] Dr. Alice Amaya MD Work Phone: [facility] 03-29-2025 00:18-0400 SaO2% (BldA) [Mass fraction] 99 % Dr. Alice Amaya MD Work Phone: [facility] 03-25-2025 07:30-0400 Body height 175.[address] George Frausto MD Work Phone: 9(071)949-244886 [place] [address] 03-25-2025 07:30-0400 Body weight 121.[address] George Frausto MD Work Phone: 4(771)065-017586 [place] [address] 03-24-2025 07:25-0400 Body mass index (BMI) [Ratio] 39.4 kg/m2 Dr. George Frausto MD Work Phone: 1(767)848-949486 [place] [address] 03-12-2025 08:03-0400 Body mass index (BMI) [Ratio] 31.4 kg/m2 Dr. George Frausto MD Work Phone: 9(686)632-812886 [place] [address] 03-12-2025 08:03-0400 Body temperature 97.6 [degF] Dr. George Frausto MD Work Phone: 1(631)[phone] [place] [address] 03-12-2025 08:03-0400 Diastolic blood pressure 90 mm[Hg] Dr. George Frausto MD Work Phone: 1(636)245-003486 [place] [address] 03-12-2025 08:03-0400 Heart rate 92 /min Dr. George Frausto MD Work Phone: 7(994)[phone] [place] [address] 03-12-2025 08:03-0400 Respiratory rate 16 /min Dr. George Frausto MD Work Phone: 0(961)677-544886 [place] [address] 03-12-2025 08:03-0400 Systolic blood pressure 160 mm[Hg] Dr. George Frausto MD Work Phone: 3(271)502-094386 [place] [address] 02-26-2025 00:39-0400 SaO2% (BldA) [Mass fraction] 99 % Dr. George Frausto MD Work Phone: 2(074)382-936086 [place] [address] 02-12-2025 08:21-0400 Body mass index (BMI) [Ratio] 31.4 kg/m2 Dr. George Frausto MD Work Phone: 7(832)[phone] [place] [address] 02-12-2025 08:21-0400 Body temperature 96.6 [degF] Dr. George Frausto MD Work Phone: [facility] 02-12-2025 08:21-0400 Diastolic blood pressure 74 mm[Hg] Dr. George Frausto MD Work Phone: [facility] 02-12-2025 08:21-0400 Heart rate 96 /min Dr. George Frausto MD Work Phone: [facility] 02-12-2025 08:21-0400 Respiratory rate 18 /min Dr. George Frausto MD Work Phone: [facility] 02-12-2025 08:21-0400 Systolic blood pressure 167 mm[Hg] Dr. George Frausto MD Work Phone: [facility] 01-27-2025 00:54-0400 SaO2% (BldA) [Mass fraction] 99 % Dr. George Frausto MD Work Phone: [facility] 01-15-2025 08:23-0400 Body mass index (BMI) [Ratio] 31.4 kg/m2 Dr. Alice Amaya MD Work Phone: [facility] 01-15-2025 08:23-0400 Body temperature 97.5 [degF] Dr. Alice Amaya MD Work Phone: [facility] 01-15-2025 08:23-0400 Diastolic blood pressure 69 mm[Hg] Dr. Alice Amaya MD Work Phone: [facility] 01-15-2025 08:23-0400 Heart rate 92 /min Dr. Alice Amaya MD Work Phone: [facility] 01-15-2025 08:23-0400 Respiratory rate 18 /min Dr. Alice Amaya MD Work Phone: [facility] 01-15-2025 08:23-0400 Systolic blood pressure 159 mm[Hg] Dr. Alice Amaya MD Work Phone: [facility] 01-01-2025 13:54-0500 Body temperature 97.8 [degF] Dr. Alice Amaya MD Work Phone: [facility] 01-01-2025 13:54-0500 Body weight 121.[address] Alice Amaya MD Work Phone: [facility] 01-01-2025 13:54-0500 Diastolic blood pressure 85 mm[Hg] Dr. Alice Amaya MD Work Phone: [facility] 01-01-2025 13:54-0500 Heart rate 87 /min Dr. Alice Amaya MD Work Phone: [facility] 01-01-2025 13:54-0500 Respiratory rate 16 /min Dr. Alice Amaya MD Work Phone: [facility] 01-01-2025 13:54-0500 SaO2% (BldA) [Mass fraction] 96 % Dr. Alice Amaya MD Work Phone: [facility] 01-01-2025 13:54-0500 Systolic blood pressure 147 mm[Hg] Dr. Alice Amaya MD Work Phone: [facility] 12-27-2024 02:11-0500 SaO2% (BldA) [Mass fraction] 99 % Dr. Alice Amaya MD Work Phone: [facility] 12-11-2024 08:45-0500 Body mass index (BMI) [Ratio] 31.4 kg/m2 Dr. Alice Amaya MD Work Phone: [facility] 12-11-2024 08:45-0500 Body temperature 96.5 [degF] Dr. Alice Amaya MD Work Phone: [facility] 12-11-2024 08:45-0500 Diastolic blood pressure 80 mm[Hg] Dr. Alice Amaya MD Work Phone: [facility] 12-11-2024 08:45-0500 Heart rate 104 /min Dr. Alice Amaya MD Work Phone: [facility] 12-11-2024 08:45-0500 Respiratory rate 18 /min Dr. Alice Amaya MD Work Phone: [facility] 12-11-2024 08:45-0500 Systolic blood pressure 165 mm[Hg] Dr. Alice Amaya MD Work Phone: [facility] 12-04-2024 08:32-0500 Body temperature 98 [degF] Dr. Alice Amaya MD Work Phone: [facility] 12-04-2024 08:32-0500 Body weight 117.[address] Alice Amaya MD Work Phone: [facility] 12-04-2024 08:32-0500 Diastolic blood pressure 90 mm[Hg] Dr. Alice Amaya MD Work Phone: [facility] 12-04-2024 08:32-0500 Heart rate 94 /min Dr. Alice Amaya MD Work Phone: [facility] 12-04-2024 08:32-0500 Respiratory rate 14 /min Dr. Alice Amaya MD Work Phone: [facility] 12-04-2024 08:32-0500 SaO2% (BldA) [Mass fraction] 98 % Dr. Alice Amaya MD Work Phone: [facility] 12-04-2024 08:32-0500 Systolic blood pressure 155 mm[Hg] Dr. Alice Amaya MD Work Phone: [facility] 11-29-2024 01:49-0500 SaO2% (BldA) [Mass fraction] 99 % Dr. Alice Amaya MD Work Phone: [facility] 11-20-2024 08:02-0500 Body mass index (BMI) [Ratio] 31.4 kg/m2 Dr. Alice Amaya MD Work Phone: [facility] 11-20-2024 08:02-0500 Body temperature 96.9 [degF] Dr. Alice Amaya MD Work Phone: [facility] 11-20-2024 08:02-0500 Diastolic blood pressure 90 mm[Hg] Dr. Alice Amaya MD Work Phone: [facility] 11-20-2024 08:02-0500 Heart rate 82 /min Dr. Alice Amaya MD Work Phone: [facility] 11-20-2024 08:02-0500 Respiratory rate 18 /min Dr. Alice Amaya MD Work Phone: [facility] 11-20-2024 08:02-0500 Systolic blood pressure 147 mm[Hg] Dr. Alice Amaya MD Work Phone: [facility] 11-07-2024 07:49-0500 Body mass index (BMI) [Ratio] 39.03 kg/m2 Bhavana Podlogar [employer] SUPERVISOR.[employer] Work Phone: [facility] 11-07-2024 07:49-0500 Body weight 116.4 kg Bhavana Podlogar [employer] SUPERVISOR.[employer] Work Phone: [facility] 11-07-2024 07:49-0500 Diastolic blood pressure 84 mm[Hg] Bhavana Podlogar [employer] SUPERVISOR.[employer] Work Phone: [facility] 11-07-2024 07:49-0500 Heart rate 92 /min Bhavana Podlogar [employer] SUPERVISOR.[employer] Work Phone: [facility] 11-07-2024 07:49-0500 Respiratory rate 18 /min Bhavana Podlogar [employer] SUPERVISOR.[employer] Work Phone: [facility] 11-07-2024 07:49-0500 SaO2% (BldA) [Mass fraction] 96 % Bhavana Podlogar [employer] SUPERVISOR.[employer] Work Phone: [facility] 11-07-2024 07:49-0500 Systolic blood pressure 132 mm[Hg] Bhavana Podlogar [employer] SUPERVISOR.[employer] Work Phone: [facility] 10-29-2024 00:16-0500 SaO2% (BldA) [Mass fraction] 99 % Dr. Alice Amaya MD Work Phone: [facility] 10-23-2024 08:06-0500 Body mass index (BMI) [Ratio] 31.4 kg/m2 Dr. Alice Amaya MD Work Phone: [facility] 10-23-2024 08:06-0500 Body temperature 96.8 [degF] Dr. Alice Amaya MD Work Phone: [facility] 10-23-2024 08:06-0500 Diastolic blood pressure 89 mm[Hg] Dr. Alice Amaya MD Work Phone: [facility] 10-23-2024 08:06-0500 Heart rate 94 /min Dr. Alice Amaya MD Work Phone: [facility] 10-23-2024 08:06-0500 Respiratory rate 18 /min Dr. Alice Amaya MD Work Phone: [facility] 10-23-2024 08:06-0500 Systolic blood pressure 137 mm[Hg] Dr. Alice Amaya MD Work Phone: [facility] 09-28-2024 00:27-0500 SaO2% (BldA) [Mass fraction] 99 % Dr. Alice Amaya MD Work Phone: [facility] 04-09-2024 07:35-0400 Body mass index (BMI) [Ratio] 38.2 kg/m2 Bhavana Podlogar [employer] SUPERVISOR.[employer] Work Phone: [facility] 04-09-2024 07:35-0400 Body weight 113.94 kg Bhavana Podlogar [employer] SUPERVISOR.[employer] Work Phone: [facility] 04-09-2024 07:35-0400 Diastolic blood pressure 88 mm[Hg] Bhavana Podlogar [employer] SUPERVISOR.[employer] Work Phone: [facility] 04-09-2024 07:35-0400 Heart rate 89 /min Bhavana Podlogar [employer] SUPERVISOR.[employer] Work Phone: [facility] 04-09-2024 07:35-0400 Respiratory rate 16 /min Bhavana Podlogar [employer] SUPERVISOR.[employer] Work Phone: [facility] 04-09-2024 07:35-0400 SaO2% (BldA) [Mass fraction] 98 % Bhavana Podlogar [employer] SUPERVISOR.[employer] Work Phone: [facility] 04-09-2024 07:35-0400 Systolic blood pressure 138 mm[Hg] Bhavana Podlogar [employer] SUPERVISOR.[employer] Work Phone: [facility] 02-14-2024 08:15-0400 Body mass index (BMI) [Ratio] 31.4 kg/m2 Dr. Alice Amaya Work Phone: [facility] 02-14-2024 08:15-0400 Body temperature 97.8 [degF] Dr. Alice Amaya Work Phone: [facility] 02-14-2024 08:15-0400 Diastolic blood pressure 81 mm[Hg] Dr. Alice Amaya Work Phone: [facility] 02-14-2024 08:15-0400 Heart rate 86 /min Dr. Alice Amaya Work Phone: [facility] 02-14-2024 08:15-0400 Respiratory rate 18 /min Dr. Alice Amaya Work Phone: [facility] 02-14-2024 08:15-0400 Systolic blood pressure 148 mm[Hg] Dr. Alice Amaya Work Phone: [facility] 01-28-2024 00:22-0400 SaO2% (BldA) [Mass fraction] 99 % Dr. Alice Amaya Work Phone: [facility] 01-19-2024 08:12-0400 Body temperature 97.5 [degF] Lakeisha Umana [employer] SUPERVISOR.[employer] Work Phone: [facility] 01-19-2024 08:12-0400 Body weight 114.2 kg Lakeisha Umana [employer] SUPERVISOR.[employer] Work Phone: [facility] 01-19-2024 08:12-0400 Diastolic blood pressure 94 mm[Hg] Lakeisha Umana [employer] SUPERVISOR.[employer] Work Phone: [facility] 01-19-2024 08:12-0400 Heart rate 92 /min Lakeisha Umana [employer] SUPERVISOR.[employer]PER[employer] Work Phone: [facility] 01-19-2024 08:12-0400 Respiratory rate 21 /min Lakeisha Umana [employer] SUPERVISOR.[employer]PER[employer] Work Phone: [facility] 01-19-2024 08:12-0400 SaO2% (BldA) [Mass fraction] 98 % Lakeisha Umana [employer] SUPERVISOR.[employer]PER[employer] Work Phone: [facility] 01-19-2024 08:12-0400 Systolic blood pressure 132 mm[Hg] Lakeisha Umana [employer] SUPERVISOR.[employer]PER[employer] Work Phone: [facility] 01-10-2024 08:44-0400 Body mass index (BMI) [Ratio] 31.4 kg/m2 Dr. Alice Amaya Work Phone: [facility] 01-10-2024 08:44-0400 Body temperature 97.2 [degF] Dr. Alice Amaya Work Phone: [facility] 01-10-2024 08:44-0400 Diastolic blood pressure 78 mm[Hg] Dr. Alice Amaya Work Phone: [facility] 01-10-2024 08:44-0400 Heart rate 84 /min Dr. Alice Amaya Work Phone: [facility] 01-10-2024 08:44-0400 Systolic blood pressure 145 mm[Hg] Dr. Alice Amaya Work Phone: [facility] 01-03-2024 08:11-0500 Respiratory rate 18 /min Dr. Alice Amaya Work Phone: [facility] 12-28-2023 00:28-0500 SaO2% (BldA) [Mass fraction] 99 % Dr. Alice Amaya Work Phone: [facility] 12-20-2023 08:11-0500 Body mass index (BMI) [Ratio] 31.4 kg/m2 Dr. Alice Amaya Work Phone: [facility] 12-20-2023 08:11-0500 Body temperature 96.1 [degF] Dr. Alice Amaya Work Phone: [facility] 12-20-2023 08:11-0500 Diastolic blood pressure 76 mm[Hg] Dr. Alice Amaya Work Phone: [facility] 12-20-2023 08:11-0500 Heart rate 92 /min Dr. Alice Amaya Work Phone: [facility] 12-20-2023 08:11-0500 Respiratory rate 18 /min Dr. Alice Amaya Work Phone: [facility] 12-20-2023 08:11-0500 Systolic blood pressure 157 mm[Hg] Dr. Alice Amaya Work Phone: [facility] 11-29-2023 00:29-0500 SaO2% (BldA) [Mass fraction] 99 % Dr. Alice Amaya Work Phone: [facility] 11-22-2023 07:59-0500 Body mass index (BMI) [Ratio] 31.4 kg/m2 Dr. Alice Amaya Work Phone: [facility] 11-22-2023 07:59-0500 Body temperature 96.4 [degF] Dr. Alice Amaya Work Phone: [facility] 11-22-2023 07:59-0500 Diastolic blood pressure 66 mm[Hg] Dr. Alice Amaya Work Phone: [facility] 11-22-2023 07:59-0500 Heart rate 88 /min Dr. Alice Amaya Work Phone: [facility] 11-22-2023 07:59-0500 Respiratory rate 18 /min Dr. Alice Amaya Work Phone: [facility] 11-22-2023 07:59-0500 Systolic blood pressure 152 mm[Hg] Dr. Alice Amaya Work Phone: [facility] 10-29-2023 00:46-0500 SaO2% (BldA) [Mass fraction] 99 % Dr. Alice Amaya Work Phone: [facility] 10-25-2023 08:00-0500 Body mass index (BMI) [Ratio] 31.4 kg/m2 Dr. Alice Amaya Work Phone: [facility] 10-25-2023 08:00-0500 Body temperature 96.7 [degF] Dr. Alice Amaya Work Phone: [facility] 10-25-2023 08:00-0500 Diastolic blood pressure 90 mm[Hg] Dr. Alice Amaya Work Phone: [facility] 10-25-2023 08:00-0500 Heart rate 96 /min Dr. Alice Amaya Work Phone: [facility] 10-25-2023 08:00-0500 Respiratory rate 18 /min Dr. Alice Amaya Work Phone: [facility] 10-25-2023 08:00-0500 Systolic blood pressure 176 mm[Hg] Dr. Alice Amaya Work Phone: [facility] 10-09-2023 07:20-0500 Body height 172.7 cm Bhavana Podlogar [employer] Work Phone: [facility] 10-09-2023 07:20-0500 Body weight 114.03 kg Bhavana Podlogar [employer] Work Phone: [facility] 10-09-2023 07:20-0500 Diastolic blood pressure 86 mm[Hg] Bhavana Podlogar [employer]PER[employer] Work Phone: [facility] 10-09-2023 07:20-0500 Heart rate 92 /min Bhavana Podlogar [employer] SUPER[employer] Work Phone: [facility] 10-09-2023 07:20-0500 Respiratory rate 18 /min Bhavana Podlogar [employer] SUPER[employer] Work Phone: [facility] 10-09-2023 07:20-0500 SaO2% (BldA) [Mass fraction] 97 % Bhavana Podlogar [employer] Work Phone: [facility] 10-09-2023 07:20-0500 Systolic blood pressure 138 mm[Hg] Bhavana Podlogar [employer] Work Phone: [facility] 09-28-2023 00:48-0500 SaO2% (BldA) [Mass fraction] 99 % Dr. Alice Amaya Work Phone: [facility] 09-27-2023 07:57-0500 Body mass index (BMI) [Ratio] 31.4 kg/m2 Dr. Alice Amaya Work Phone: [facility] 09-27-2023 07:57-0500 Body temperature 96.5 [degF] Dr. Alice Amaya Work Phone: [facility] 09-27-2023 07:57-0500 Diastolic blood pressure 73 mm[Hg] Dr. Alice Amaya Work Phone: [facility] 09-27-2023 07:57-0500 Heart rate 97 /min Dr. Alice Amaya Work Phone: [facility] 09-27-2023 07:57-0500 Respiratory rate 16 /min Dr. Alice Amaya Work Phone: [facility] 09-27-2023 07:57-0500 Systolic blood pressure 156 mm[Hg] Dr. Alice Amaya Work Phone: [facility] 08-29-2023 00:49-0400 SaO2% (BldA) [Mass fraction] 99 % Dr. Alice Amaya Work Phone: [facility] 08-16-2023 08:06-0400 Body mass index (BMI) [Ratio] 31.4 kg/m2 Dr. Alice Amaya Work Phone: [facility] 08-16-2023 08:06-0400 Body temperature 95.9 [degF] Dr. Alice Amaya Work Phone: [facility] 08-16-2023 08:06-0400 Diastolic blood pressure 65 mm[Hg] Dr. Alice Amaya Work Phone: [facility] 08-16-2023 08:06-0400 Heart rate 84 /min Dr. Alice Amaya Work Phone: [facility] 08-16-2023 08:06-0400 Respiratory rate 16 /min Dr. Alice Amaya Work Phone: [facility] 08-16-2023 08:06-0400 Systolic blood pressure 157 mm[Hg] Dr. Alice Amaya Work Phone: [facility] 07-29-2023 00:41-0400 SaO2% (BldA) [Mass fraction] 99 % Dr. Alice Amaya Work Phone: [facility] 07-19-2023 08:04-0400 Body mass index (BMI) [Ratio] 31.4 kg/m2 Dr. Alice Amaya Work Phone: [facility] 07-19-2023 08:04-0400 Body temperature 97 [degF] Dr. Alice Amaya Work Phone: [facility] 07-19-2023 08:04-0400 Diastolic blood pressure 78 mm[Hg] Dr. Alice Amaya Work Phone: [facility] 07-19-2023 08:04-0400 Heart rate 93 /min Dr. Alice Amaya Work Phone: [facility] 07-19-2023 08:04-0400 Respiratory rate 16 /min Dr. Alice Amaya Work Phone: [facility] 07-19-2023 08:04-0400 Systolic blood pressure 164 mm[Hg] Dr. Alice Amaya Work Phone: [facility] 06-29-2023 00:29-0400 SaO2% (BldA) [Mass fraction] 99 % Dr. Alice Amaya Work Phone: [facility] 06-21-2023 08:54-0400 Body mass index (BMI) [Ratio] 31.4 kg/m2 Dr. Alice Amaya Work Phone: [facility] 06-21-2023 08:54-0400 Body temperature 97.5 [degF] Dr. Alice Amaya Work Phone: [facility] 06-21-2023 08:54-0400 Diastolic blood pressure 92 mm[Hg] Dr. Alice Amaya Work Phone: [facility] 06-21-2023 08:54-0400 Heart rate 110 /min Dr. Alice Amaya Work Phone: [facility] 06-21-2023 08:54-0400 Respiratory rate 16 /min Dr. Alice Amaya Work Phone: [facility] 06-21-2023 08:54-0400 Systolic blood pressure 163 mm[Hg] Dr. lAice Amaya Work Phone: [facility] 05-29-2023 00:17-0400 SaO2% (BldA) [Mass fraction] 99 % Dr. Alice mAaya Work Phone: [facility] 05-24-2023 08:10-0400 Body mass index (BMI) [Ratio] 31.4 kg/m2 Dr. Alice Amaya Work Phone: [facility] 05-24-2023 08:10-0400 Body temperature 97.8 [degF] Dr. Alice Amaya Work Phone: [facility] 05-24-2023 08:10-0400 Diastolic blood pressure 81 mm[Hg] Dr. Alice Amaya Work Phone: [facility] 05-24-2023 08:10-0400 Heart rate 107 /min Dr. Alice Amaya Work Phone: [facility] 05-24-2023 08:10-0400 Respiratory rate 16 /min Dr. Alice Amaya Work Phone: [facility] 05-24-2023 08:10-0400 Systolic blood pressure 170 mm[Hg] Dr. Alice Amaya Work Phone: [facility] 04-28-2023 01:05-0400 SaO2% (BldA) [Mass fraction] 99 % Dr. Alice Amaya Work Phone: [facility] 04-12-2023 08:34-0400 Body mass index (BMI) [Ratio] 31.4 kg/m2 Dr. Alice Amaya Work Phone: [facility] 04-12-2023 08:34-0400 Body temperature 95.4 [degF] Dr. Alice Amaya Work Phone: [facility] 04-12-2023 08:34-0400 Diastolic blood pressure 78 mm[Hg] Dr. Alice Amaya Work Phone: [facility] 04-12-2023 08:34-0400 Heart rate 87 /min Dr. Alice Amaya Work Phone: [facility] 04-12-2023 08:34-0400 Systolic blood pressure 152 mm[Hg] Dr. Alice Amaya Work Phone: [facility] 03-29-2023 08:08-0400 Respiratory rate 18 /min Dr. Alice Amaya Work Phone: [facility] 03-29-2023 00:27-0400 SaO2% (BldA) [Mass fraction] 99 % Dr. Alice Amaya Work Phone: [facility] 03-15-2023 08:00-0400 Body mass index (BMI) [Ratio] 31.4 kg/m2 Dr. Alice Amaya Work Phone: [facility] 03-15-2023 08:00-0400 Body temperature 96.5 [degF] Dr. Alice Amaya Work Phone: [facility] 03-15-2023 08:00-0400 Diastolic blood pressure 88 mm[Hg] Dr. Alice Amaya Work Phone: [facility] 03-15-2023 08:00-0400 Heart rate 83 /min Dr. Alice Amaya Work Phone: [facility] 03-15-2023 08:00-0400 Systolic blood pressure 164 mm[Hg] Dr. Alice Amaya Work Phone: [facility] 03-01-2023 08:04-0400 Respiratory rate 16 /min Dr. Alice Amaya Work Phone: [facility] 02-26-2023 00:28-0400 SaO2% (BldA) [Mass fraction] 99 % Dr. Alice Amaya Work Phone: [facility] 02-15-2023 08:01-0400 Body mass index (BMI) [Ratio] 31.4 kg/m2 Dr. Alice Amaya Work Phone: [facility] 02-15-2023 08:01-0400 Body temperature 96.9 [degF] Dr. Alice Amaya Work Phone: [facility] 02-15-2023 08:01-0400 Diastolic blood pressure 83 mm[Hg] Dr. Alice Amaya Work Phone: [facility] 02-15-2023 08:01-0400 Heart rate 88 /min Dr. Alice Amaya Work Phone: [facility] 02-15-2023 08:01-0400 Respiratory rate 16 /min Dr. Alice Amaya Work Phone: [facility] 02-15-2023 08:01-0400 Systolic blood pressure 146 mm[Hg] Dr. Alice Amaya Work Phone: [facility] 01-27-2023 01:31-0400 SaO2% (BldA) [Mass fraction] 99 % Dr. Alice Amaya Work Phone: [facility] 01-18-2023 07:48-0400 Body mass index (BMI) [Ratio] 31.4 kg/m2 Dr. Alice Amaya Work Phone: [facility] 01-18-2023 07:48-0400 Body temperature 97.2 [degF] Dr. Alice Amaya Work Phone: [facility] 01-18-2023 07:48-0400 Diastolic blood pressure 71 mm[Hg] Dr. Alice Amaya Work Phone: [facility] 01-18-2023 07:48-0400 Heart rate 87 /min Dr. Alice Amaya Work Phone: [facility] 01-18-2023 07:48-0400 Respiratory rate 16 /min Dr. Alice Amaya Work Phone: [facility] 01-18-2023 07:48-0400 Systolic blood pressure 141 mm[Hg] Dr. Alice Amaya Work Phone: [facility] 12-27-2022 00:19-0500 SaO2% (BldA) [Mass fraction] 99 % Dr. Alice Amaya Work Phone: [facility] 12-21-2022 08:06-0500 Body mass index (BMI) [Ratio] 31.4 kg/m2 Dr. George Frausto Work Phone: [facility] 12-21-2022 08:06-0500 Body temperature 98 [degF] Dr. George Frausto Work Phone: [facility] 12-21-2022 08:06-0500 Diastolic blood pressure 77 mm[Hg] Dr. George Frausto Work Phone: [facility] 12-21-2022 08:06-0500 Heart rate 95 /min Dr. George Frausto Work Phone: [facility] 12-21-2022 08:06-0500 Respiratory rate 16 /min Dr. George Frausto Work Phone: [facility] 12-21-2022 08:06-0500 Systolic blood pressure 155 mm[Hg] Dr. George Frausto Work Phone: [facility] 11-29-2022 00:26-0500 SaO2% (BldA) [Mass fraction] 99 % Dr. George Frausto Work Phone: [facility] 11-09-2022 08:52-0500 Body mass index (BMI) [Ratio] 31.4 kg/m2 Dr. George Frausto Work Phone: 1(673)769-735040 [place] [address] 11-09-2022 08:52-0500 Body temperature 97.8 [degF] Dr. George Frausto Work Phone: 4(212)212-944186 [place] [address] 11-09-2022 08:52-0500 Diastolic blood pressure 77 mm[Hg] Dr. George Frausto Work Phone: 2(694)775-289986 [place] [address] 11-09-2022 08:52-0500 Heart rate 81 /min Dr. George Frausto Work Phone: 6(439)674-299086 [place] [address] 11-09-2022 08:52-0500 Respiratory rate 16 /min Dr. George Frausto Work Phone: 5(292)436-349986 [place] [address] 11-09-2022 08:52-0500 Systolic blood pressure 139 mm[Hg] Dr. George Frausto Work Phone: [facility] 10-29-2022 00:19-0500 SaO2% (BldA) [Mass fraction] 99 % Dr. George Frausto Work Phone: 5(660)499-460040 [place] [address] 10-28-2022 08:56-0500 Body height 176 cm Arvidn Frausto MD Work Phone: [facility] 10-28-2022 08:56-0500 Body weight 115.3 kg Arvind Frausto MD Work Phone: [facility] 10-28-2022 08:56-0500 Diastolic blood pressure 68 mm[Hg] Arvind Frausto MD Work Phone: [facility] 10-28-2022 08:56-0500 Heart rate 94 /min Arvind Frausto MD Work Phone: [facility] 10-28-2022 08:56-0500 Respiratory rate 16 /min Arvind Frausto MD Work Phone: [facility] 10-28-2022 08:56-0500 SaO2% (BldA) [Mass fraction] 97 % Arvind Frausto MD Work Phone: [facility] 10-28-2022 08:56-0500 Systolic blood pressure 130 mm[Hg] Arvind Frausto MD Work Phone: [facility] 10-26-2022 08:50-0500 Body mass index (BMI) [Ratio] 31.4 kg/m2 No Primary Care Physician [facility] 10-26-2022 08:50-0500 Body temperature 96.9 [degF] No Primary Care Physician [facility] 10-26-2022 08:50-0500 Diastolic blood pressure 90 mm[Hg] No Primary Care Physician [facility] 10-26-2022 08:50-0500 Heart rate 95 /min No Primary Care Physician [facility] 10-26-2022 08:50-0500 Respiratory rate 20 /min No Primary Care Physician [facility] 10-26-2022 08:50-0500 Systolic blood pressure 148 mm[Hg] No Primary Care Physician [facility] 10-12-2022 10:30-0500 Body temperature 99.1 [degF] No Primary Care Physician [facility] 10-12-2022 10:30-0500 Body weight 117.25 kg No Primary Care Physician [facility] 10-12-2022 10:30-0500 Diastolic blood pressure 85 mm[Hg] No Primary Care Physician [facility] 10-12-2022 10:30-0500 Heart rate 82 /min No Primary Care Physician [facility] 10-12-2022 10:30-0500 Respiratory rate 18 /min No Primary Care Physician [facility] 10-12-2022 10:30-0500 SaO2% (BldA) [Mass fraction] 97 % No Primary Care Physician [facility] 10-12-2022 10:30-0500 Systolic blood pressure 146 mm[Hg] No Primary Care Physician [facility] 09-28-2022 00:23-0500 SaO2% (BldA) [Mass fraction] 99 % No Primary Care Physician [facility] 09-14-2022 09:41-0500 Body mass index (BMI) [Ratio] 31.4 kg/m2 No Primary Care Physician [facility] 09-14-2022 09:41-0500 Body temperature 97.4 [degF] No Primary Care Physician [facility] 09-14-2022 09:41-0500 Diastolic blood pressure 113 mm[Hg] No Primary Care Physician [facility] 09-14-2022 09:41-0500 Heart rate 84 /min No Primary Care Physician [facility] 09-14-2022 09:41-0500 Respiratory rate 20 /min No Primary Care Physician [facility] 09-14-2022 09:41-0500 Systolic blood pressure 155 mm[Hg] No Primary Care Physician [facility] 08-31-2022 08:58-0400 Body mass index (BMI) [Ratio] 31.4 kg/m2 No Primary Care Physician [facility] Work Phone: 08-31-2022 08:58-0400 Body temperature 96.1 [degF] No Primary Care Physician [facility] Work Phone: 08-31-2022 08:58-0400 Diastolic blood pressure 70 mm[Hg] No Primary Care Physician [facility] Work Phone: 08-31-2022 08:58-0400 Heart rate 84 /min No Primary Care Physician [facility] Work Phone: 08-31-2022 08:58-0400 Respiratory rate 18 /min No Primary Care Physician [facility] Work Phone: 08-31-2022 08:58-0400 Systolic blood pressure 166 mm[Hg] No Primary Care Physician [facility] Work Phone: 08-29-2022 00:24-0400 SaO2% (BldA) [Mass fraction] 99 % No Primary Care Physician [facility] 08-24-2022 10:34-0400 Diastolic blood pressure 86 mm[Hg] No Primary Care Physician [facility] Work Phone: 08-24-2022 10:34-0400 Systolic blood pressure 142 mm[Hg] No Primary Care Physician [facility] Work Phone: 08-24-2022 09:58-0400 Body temperature 98.6 [degF] No Primary Care Physician [facility] Work Phone: 08-24-2022 09:58-0400 Body weight 113.39 kg No Primary Care Physician [facility] Work Phone: 08-24-2022 09:58-0400 Heart rate 74 /min No Primary Care Physician [facility] Work Phone: 08-24-2022 09:58-0400 Respiratory rate 18 /min No Primary Care Physician [facility] Work Phone: 08-24-2022 09:58-0400 SaO2% (BldA) [Mass fraction] 98 % No Primary Care Physician [facility] Work Phone: 08-17-2022 09:02-0400 Body mass index (BMI) [Ratio] 31.4 kg/m2 No Primary Care Physician [facility] Work Phone: 08-17-2022 09:02-0400 Body temperature 96.7 [degF] No Primary Care Physician [facility] Work Phone: 08-17-2022 09:02-0400 Diastolic blood pressure 80 mm[Hg] No Primary Care Physician [facility] Work Phone: 08-17-2022 09:02-0400 Heart rate 85 /min No Primary Care Physician [facility] Work Phone: 08-17-2022 09:02-0400 Respiratory rate 16 /min No Primary Care Physician [facility] Work Phone: 08-17-2022 09:02-0400 Systolic blood pressure 150 mm[Hg] No Primary Care Physician [facility] Work Phone: 07-31-2022 11:46-0400 Body temperature 96.7 [degF] No Primary Care Physician [facility] Work Phone: 07-31-2022 11:46-0400 Diastolic blood pressure 84 mm[Hg] No Primary Care Physician [facility] Work Phone: 07-31-2022 11:46-0400 Heart rate 82 /min No Primary Care Physician [facility] Work Phone: 07-31-2022 11:46-0400 Respiratory rate 16 /min No Primary Care Physician [facility] Work Phone: 07-31-2022 11:46-0400 SaO2% (BldA) [Mass fraction] 100 % No Primary Care Physician [facility] Work Phone: 07-31-2022 11:46-0400 Systolic blood pressure 126 mm[Hg] No Primary Care Physician [facility] Work Phone: 07-31-2022 07:07-0400 Body height 175.26 cm No Primary Care Physician [facility] Work Phone: 07-31-2022 07:07-0400 Body mass index (BMI) [Ratio] 35.4 kg/m2 No Primary Care Physician [facility] Work Phone: 07-31-2022 07:07-0400 Body weight 108.86 kg No Primary Care Physician [facility] Work Phone: 07-29-2022 01:08-0400 SaO2% (BldA) [Mass fraction] 99 % No Primary Care Physician [facility] Work Phone: 07-27-2022 09:08-0400 Body mass index (BMI) [Ratio] 31.4 kg/m2 No Primary Care Physician [facility] Work Phone: 07-13-2022 09:01-0400 Body temperature 96.7 [degF] No Primary Care Physician [facility] Work Phone: 07-13-2022 09:01-0400 Diastolic blood pressure 80 mm[Hg] No Primary Care Physician [facility] Work Phone: 07-13-2022 09:01-0400 Heart rate 76 /min No Primary Care Physician [facility] Work Phone: 07-13-2022 09:01-0400 Respiratory rate 18 /min No Primary Care Physician [facility] Work Phone: 07-13-2022 09:01-0400 Systolic blood pressure 170 mm[Hg] No Primary Care Physician [facility] Work Phone: 06-29-2022 00:25-0400 SaO2% (BldA) [Mass fraction] 99 % No Primary Care Physician [facility] Work Phone: 06-15-2022 09:01-0400 Body mass index (BMI) [Ratio] 31.4 kg/m2 No Primary Care Physician [facility] Work Phone: 06-15-2022 09:01-0400 Body temperature 96.8 [degF] No Primary Care Physician [facility] Work Phone: 06-15-2022 09:01-0400 Diastolic blood pressure 86 mm[Hg] No Primary Care Physician [facility] Work Phone: 06-15-2022 09:01-0400 Heart rate 77 /min No Primary Care Physician [facility] Work Phone: 06-15-2022 09:01-0400 Respiratory rate 16 /min No Primary Care Physician [facility] Work Phone: 06-15-2022 09:01-0400 Systolic blood pressure 161 mm[Hg] No Primary Care Physician [facility] Work Phone: 06-13-2022 09:39-0400 Body weight 111.58 kg No Primary Care Physician [facility] Work Phone: 06-13-2022 09:39-0400 Diastolic blood pressure 85 mm[Hg] No Primary Care Physician [facility] Work Phone: 06-13-2022 09:39-0400 Heart rate 85 /min No Primary Care Physician [facility] Work Phone: 06-13-2022 09:39-0400 Respiratory rate 18 /min No Primary Care Physician [facility] Work Phone: 06-13-2022 09:39-0400 SaO2% (BldA) [Mass fraction] 99 % No Primary Care Physician [facility] Work Phone: 06-13-2022 09:39-0400 Systolic blood pressure 136 mm[Hg] No Primary Care Physician [facility] Work Phone: 05-29-2022 00:22-0400 SaO2% (BldA) [Mass fraction] 99 % No Primary Care Physician [facility] Work Phone: 05-18-2022 08:48-0400 Body mass index (BMI) [Ratio] 31.4 kg/m2 No Primary Care Physician [facility] Work Phone: 05-18-2022 08:48-0400 Body temperature 98.2 [degF] No Primary Care Physician [facility] Work Phone: 05-18-2022 08:48-0400 Diastolic blood pressure 91 mm[Hg] No Primary Care Physician [facility] Work Phone: 05-18-2022 08:48-0400 Heart rate 91 /min No Primary Care Physician [facility] Work Phone: 05-18-2022 08:48-0400 Respiratory rate 18 /min No Primary Care Physician [facility] Work Phone: 05-18-2022 08:48-0400 Systolic blood pressure 157 mm[Hg] No Primary Care Physician [facility] Work Phone: 04-28-2022 00:27-0400 SaO2% (BldA) [Mass fraction] 99 % No Primary Care Physician [facility] Work Phone: 04-20-2022 09:18-0400 Body mass index (BMI) [Ratio] 31.4 kg/m2 No Primary Care Physician [facility] Work Phone: 04-20-2022 09:18-0400 Body temperature 97 [degF] No Primary Care Physician [facility] Work Phone: 04-20-2022 09:18-0400 Diastolic blood pressure 83 mm[Hg] No Primary Care Physician [facility] Work Phone: 04-20-2022 09:18-0400 Heart rate 86 /min No Primary Care Physician [facility] Work Phone: 04-20-2022 09:18-0400 Respiratory rate 18 /min No Primary Care Physician [facility] Work Phone: 04-20-2022 09:18-0400 Systolic blood pressure 138 mm[Hg] No Primary Care Physician [facility] Work Phone: 03-29-2022 00:43-0400 SaO2% (BldA) [Mass fraction] 99 % No Primary Care Physician [facility] Work Phone: 03-16-2022 09:13-0400 Body mass index (BMI) [Ratio] 31.4 kg/m2 No Primary Care Physician [facility] Work Phone: 03-16-2022 09:13-0400 Body temperature 96.8 [degF] No Primary Care Physician [facility] Work Phone: 03-16-2022 09:13-0400 Diastolic blood pressure 78 mm[Hg] No Primary Care Physician [facility] Work Phone: 03-16-2022 09:13-0400 Heart rate 80 /min No Primary Care Physician [facility] Work Phone: 03-16-2022 09:13-0400 Respiratory rate 18 /min No Primary Care Physician [facility] Work Phone: 03-16-2022 09:13-0400 Systolic blood pressure 169 mm[Hg] No Primary Care Physician [facility] Work Phone: 02-26-2022 00:27-0400 SaO2% (BldA) [Mass fraction] 99 % No Primary Care Physician [facility] Work Phone: 02-16-2022 09:05-0400 Body mass index (BMI) [Ratio] 31.4 kg/m2 No Primary Care Physician [facility] Work Phone: 02-16-2022 09:05-0400 Body temperature 97.2 [degF] No Primary Care Physician [facility] Work Phone: 02-16-2022 09:05-0400 Diastolic blood pressure 84 mm[Hg] No Primary Care Physician [facility] Work Phone: 02-16-2022 09:05-0400 Heart rate 77 /min No Primary Care Physician [facility] Work Phone: 02-16-2022 09:05-0400 Respiratory rate 18 /min No Primary Care Physician [facility] Work Phone: 02-16-2022 09:05-0400 Systolic blood pressure 147 mm[Hg] No Primary Care Physician [facility] Work Phone: 01-27-2022 00:28-0400 SaO2% (BldA) [Mass fraction] 99 % No Primary Care Physician [facility] Work Phone: 01-19-2022 09:00-0400 Body mass index (BMI) [Ratio] 31.4 kg/m2 No Primary Care Physician [facility] Work Phone: 01-19-2022 09:00-0400 Body temperature 97.8 [degF] No Primary Care Physician [facility] Work Phone: 01-19-2022 09:00-0400 Diastolic blood pressure 81 mm[Hg] No Primary Care Physician [facility] Work Phone: 01-19-2022 09:00-0400 Heart rate 90 /min No Primary Care Physician [facility] Work Phone: 01-19-2022 09:00-0400 Respiratory rate 16 /min No Primary Care Physician [facility] Work Phone: 01-19-2022 09:00-0400 Systolic blood pressure 160 mm[Hg] No Primary Care Physician [facility] Work Phone: 12-27-2021 00:26-0500 SaO2% (BldA) [Mass fraction] 99 % No Primary Care Physician [facility] Work Phone: 12-26-2021 23:26-0500 SaO2% (BldA) [Mass fraction] 99 % No Primary Care Physician [facility] Work Phone: 12-22-2021 08:03-0500 Body mass index (BMI) [Ratio] 31.4 kg/m2 No Primary Care Physician [facility] Work Phone: 12-22-2021 08:03-0500 Body temperature 96.9 [degF] No Primary Care Physician [facility] Work Phone: 12-22-2021 08:03-0500 Diastolic blood pressure 85 mm[Hg] No Primary Care Physician [facility] Work Phone: 12-22-2021 08:03-0500 Heart rate 84 /min No Primary Care Physician [facility] Work Phone: 12-22-2021 08:03-0500 Respiratory rate 18 /min No Primary Care Physician [facility] Work Phone: 12-22-2021 08:03-0500 Systolic blood pressure 149 mm[Hg] No Primary Care Physician [facility] Work Phone: 12-08-2021 08:04-0500 SaO2% (BldA) [Mass fraction] 99 % No Primary Care Physician [facility] Work Phone: 11-24-2021 08:14-0500 Body mass index (BMI) [Ratio] 31.4 kg/m2 No Primary Care Physician [facility] Work Phone: 11-24-2021 08:14-0500 Body temperature 97.7 [degF] No Primary Care Physician [facility] Work Phone: 11-24-2021 08:14-0500 Diastolic blood pressure 87 mm[Hg] No Primary Care Physician [facility] Work Phone: 11-24-2021 08:14-0500 Heart rate 84 /min No Primary Care Physician [facility] Work Phone: 11-24-2021 08:14-0500 Respiratory rate 16 /min No Primary Care Physician [facility] Work Phone: 11-24-2021 08:14-0500 Systolic blood pressure 154 mm[Hg] No Primary Care Physician [facility] Work Phone: 10-28-2021 23:22-0500 SaO2% (BldA) [Mass fraction] 99 % No Primary Care Physician [facility] Work Phone: 10-27-2021 08:02-0500 Body mass index (BMI) [Ratio] 31.4 kg/m2 No Primary Care Physician [facility] Work Phone: 10-27-2021 08:02-0500 Body temperature 97.1 [degF] No Primary Care Physician [facility] Work Phone: 10-27-2021 08:02-0500 Diastolic blood pressure 89 mm[Hg] No Primary Care Physician [facility] Work Phone: 10-27-2021 08:02-0500 Heart rate 93 /min No Primary Care Physician [facility] Work Phone: 10-27-2021 08:02-0500 Respiratory rate 16 /min No Primary Care Physician [facility] Work Phone: 10-27-2021 08:02-0500 Systolic blood pressure 141 mm[Hg] No Primary Care Physician [facility] Work Phone: 09-27-2021 23:23-0500 SaO2% (BldA) [Mass fraction] 99 % No Primary Care Physician [facility] Work Phone: Encounters Encounter Date Encounter Type Care Provider Facility Start: 05-14-2025 ambulatory [facility] Start: 05-08-2025 End: 05-08-2025 Patient encounter procedure Bhavana Podlogar [employer] SUPERVISOR.SUPERVISOR CHANNEL PROCESS Work Phone: [facility] Comment on above: Essential hypertensi on (Primary Dx); Hyperlipidemia, mixed; Prediabetes; PVD (peripheral vascular disease); Encounter for colorectal cancer screening using Cologuard test; Obesity, Class III, BMI >= 40; Tinea versicolor; Personal history of tobacco use Start: 05-08-2025 End: 05-08-2025 ambulatory BHAVANA PODLOGRALF Facility:[facility] Start: 04-30-2025 ambulatory Alice Jackson ty:[facility] Start: 04-30-2025 [facility] Start: 04-16-2025 ambulatory Alice Jackson ty:[facility] Start: 04-16-2025 Non-patient / Non-visit Dr. Amber Amaya MD -[facility] Work Phone: Start: 04-16-2025 End: 04-27-[address] Alice Amaya MD Work Phone: -[facility] Start: 04-16-2025 End: 04-27-[address] Alice Amaya MD -[facility] Work Phone: Start: 04-14-2025 End: 04-14-2025 Patient encounter procedure Odalys LEBLANC -[facility] Work Phone: Start: 04-14-2025 End: 04-14-[address] Alice Amaya MD Work Phone: [facility] Work Phone: Start: 04-09-2025 ambulatory Alice Jackson ty:[facility] Start: 04-09-2025 Non-patient / Non-visit Dr. Amber Amaya MD -[facility] Work Phone: Start: 04-09-[address] Hansel Amaya MD -[facility] Work Phone: Start: 03-30-2025 Non-patient / Non-visit Dr. Christian odom MD -[facility] Start: 03-30-2025 End: 03-30-[address] George Frausto MD Work Phone: [facility] Work Phone: Start: 03-30-2025 End: 03-30-[address] Christian Doty MD -Cardiovascular Services Work Phone: Start: 03-30-2025 End: 03-30-2025 ambulatory Christian Doty Facility:[facility] Start: 03-25-2025 ambulatory Christian Doty Facility:[facility] Start: 03-25-2025 Non-patient / Non-visit Dr. Christian odom MD -[facility] Start: 03-25-2025 End: 03-25-2025 Admission to same day surgery center Dr. Christian Doty MD -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 Work Phone: Start: 03-25-2025 End: 03-25-[address] George Frausto MD Work Phone: [facility] Work Phone: Start: 03-12-2025 Non-patient / Non-visit Dr. Amber Amaya MD -[facility] Work Phone: Start: 03-12-2025 End: 03-28-[address] George Frausto MD Work Phone: [facility] Work Phone: Start: 03-12-2025 End: 03-28-[address] [facility] Work Phone: Start: 03-12-[address] Hansel [facility] Work Phone: Start: 02-26-2025 ambulatory Alice Amaya Facili ty:[facility] Start: 02-26-2025 Non-patient / Non-visit Dr. Amber Amaya MD -[facility] Work Phone: Start: 02-12-2025 Non-patient / Non-visit Dr. Amber Amaya MD -[facility] Work Phone: Start: 02-12-2025 End: 02-25-2025 ambulatory Alice Amaya Facility:[facility] Start: 02-12-2025 End: 02-25-[address] Alice Amaya MD -[facility] Work Phone: Start: 01-29-2025 ambulatory Alice Amaya Faciljaylyn ty:[facility] Start: 01-29-2025 Non-patient / Non-visit Dr. Amber Amaya MD -[facility] Work Phone: Start: 01-15-2025 Non-patient / Non-visit Dr. Amber Amaya MD -[facility] Work Phone: Start: 01-15-2025 End: 01-26-[address] Alice Amaya MD Work Phone: [facility] Work Phone: Start: 01-15-2025 End: 01-26-[address] Alice Amaya MD -[facility] Work Phone: Start: 01-01-2025 End: 01-01-[address] Christian Doty MD -[facility] Work Phone: Start: 01-01-2025 End: 01-01-2025 ambulatory George Frausto Facility:[facility] Start: 01-01-2025 ambulatory George Frausto Faci lity:[facility] Start: 01-01-2025 Non-patient / Non-visit Dr. Amber Amaya MD -[facility] Work Phone: Start: 12-15-2024 End: 12-15-2024 Refill Arvind Frausto MD Work Phone: [facility] Comment on above: Refill Request Start: 12-12-2024 End: 12-19-2024 Telephone encounter Bhavana Rosales APRN.SUPERVISOR CHANNEL PROCESS Work Phone: [facility] Comment on above: Forms (Annual Physic al ) Start: 12-11-2024 ambulatory George Jett Faci lity:[facility] Start: 12-11-2024 Non-patient / Non-visit Dr. Amber Amaya MD -[facility] Work Phone: Start: 12-11-2024 End: 12-26-2024 ambulatory [facility] Facility:[facility] Start: 12-11-2024 End: 12-26-[address] Alice Amaya MD -[facility]ound [facility] Work Phone: Start: 12-04-2024 End: 12-04-2024 Patient encounter procedure Odalys LEBLANC -[facility] Work Phone: Start: 12-04-2024 End: 12-04-2024 ambulatory George Dorothyley Facility:[facility] Start: 12-02-2024 ambulatory George Dorothyley Faci lity:[facility] Start: 12-02-2024 Non-patient / Non-visit Dr. Christian odom MD -[facility] Start: 11-20-2024 Non-patient / Non-visit Dr. Amber Amaya MD -[facility] Work Phone: Start: 11-20-2024 End: 11-28-2024 ambulatory [facility] Facility:[facility] Start: 11-20-2024 End: 11-28-[address] [facility] Work Phone: Start: 11-10-2024 End: 11-10-2024 Telephone encounter Bhavnaa Rosales APRN.SUPERVISOR CHANNEL PROCESS Work Phone: [facility] Comment on above: Results Start: 11-07-2024 End: 11-07-2024 Patient encounter procedure Bhavana Rosales APRN.SUPERVISOR CHANNEL PROCESS Work Phone: [facility] Comment on above: Essential hypertensi on (Primary Dx); Hyperlipidemia, mixed; Prediabetes; PVD (peripheral vascular disease) (HCC); Obesity, Class II, BMI 35-39.9 Start: 11-07-2024 End: 11-07-2024 ambulatory BHAVANA PODLOGAR Facility:[facility] Start: 11-06-2024 ambulatory George Dorothyley Faci lity:[facility] Start: 11-06-2024 Non-patient / Non-visit Dr. Amber Amaya MD -[facility] Work Phone: Start: 10-23-2024 Non-patient / Non-visit Dr. Amber Amaya MD -[facility] Work Phone: Start: 10-23-2024 End: 10-28-2024 ambulatory George Frausto Facility:[facility] Start: 10-23-2024 End: 10-28-[address] [facility] -[facility] Work Phone: Start: 10-16-2024 ambulatory George Jett Faci lity:[facility] Start: 10-16-2024 Non-patient / Non-visit Dr. Amber Amaya MD -[facility] Work Phone: Start: 09-18-2024 End: 09-27-2024 ambulatory George Frausto Facility:[facility] Start: 09-11-2024 ambulatory George Dorothyley Faci lity:[facility] Start: 08-28-2024 End: 08-28-2024 [facility] Start: 08-14-2024 ambulatory George Bursley Faci lity:[facility] Start: 07-17-2024 End: 07-28-2024 [facility] Start: 07-03-2024 ambulatory George Bursley Faci lity:[facility] Start: 06-19-2024 End: 06-28-2024 [facility] Start: 06-05-2024 ambulatory George Bursley Faci lity:[facility] Start: 05-29-2024 ambulatory George Frausto Faci lity:[facility] Start: 05-15-2024 End: 05-28-2024 ambulatory George Bursleno Facility:[facility] Start: 04-11-2024 Telephone encounter George Frausto MD Work Phone: [facility] Comment on above: Results Start: 04-09-2024 End: 04-09-2024 Patient encounter procedure Bhavana Rosales [employer]ARD SUPERVISOR.SUPERVISOR CHANNEL PROCESS Work Phone: [facility] Comment on above: Essential hypertensi on (Primary Dx); PVD (peripheral vascular disease) (HCC); Hyperlipidemia, mixed; Prediabetes; Depression screening; Screening for colon cancer; Tinea versicolor Start: 02-14-2024 Non-patient / Non-visit Dr. Amber Amaya Work Phone: [facility] Work Phone: Start: 02-14-2024 End: 02-26-[address] Alice Amaya Work Phone: [facility] Work Phone: Start: 02-14-2024 End: 02-26-[address] [facility] Work Phone: Start: 01-31-2024 Non-patient / Non-visit Dr. Amber Amaya Work Phone: [facility] Work Phone: Start: 01-19-2024 End: 01-19-2024 Patient encounter procedure Lakeisha Umana APRN.SUPERVISOR CHANNEL PROCESS Work Phone: [facility] Comment on above: Rash (Primary Dx) Start: 01-10-2024 Non-patient / Non-visit Dr. Amber Amaya Work Phone: [facility] Work Phone: Start: 01-10-2024 End: 01-27-[address] Alice Amaya Work Phone: [facility] Work Phone: Start: 01-10-2024 End: 01-27-[address] Alice Amaya Work Phone: [facility] Work Phone: Start: 01-08-2024 Telephone encounter George Fruasto MD Work Phone: [facility] Comment on above: Forms (Preventative Care Form ) Start: 01-03-2024 Non-patient / Non-visit Dr. Amber Amaya Work Phone: [facility] Work Phone: Start: 12-21-2023 Refill Arvind Frausto MD Work Phone: [facility] Comment on above: Refill Request Start: 12-20-2023 Non-patient / Non-visit Dr. Amber Amaya Work Phone: [facility] Work Phone: Start: 12-20-2023 End: 12-27-[address] Alice Amaya Work Phone: [facility] Work Phone: Start: 12-20-2023 End: 12-27-[address] Alice Amaya Work Phone: [facility] Work Phone: Start: 12-06-2023 Non-patient / Non-visit Dr. Amber Amaya Work Phone: [facility] Work Phone: Start: 11-27-2023 End: 11-27-2023 Subsequent hospital visit by physician Judah Guaman MD Work Phone: Amb[facility] Surgery Comment on above: Canceled (Pt cx: Alexx ointment Conflict) Start: 11-22-2023 Non-patient / Non-visit Dr. Amber Amaya Work Phone: [facility] Work Phone: Start: 11-22-2023 End: 11-28-[address] Alice Amaya Work Phone: [facility] Work Phone: Start: 11-22-2023 End: 11-28-[address] Alice Amaya Work Phone: [facility] Work Phone: Start: 11-08-2023 Non-patient / Non-visit Dr. Amber Amaya Work Phone: [facility] Work Phone: Start: 10-25-2023 Non-patient / Non-visit Dr. Amber Amaya Work Phone: [facility] Work Phone: Start: 10-25-2023 End: 10-28-[address] Alice Amaya Work Phone: [facility] Work Phone: Start: 10-25-2023 End: 10-28-[address] Alice Amaya Work Phone: [facility] Work Phone: Start: 10-12-2023 Telephone encounter Bhavana muir APRN.CNP Work Phone: [facility] Comment on above: Results Start: 10-11-2023 Non-patient / Non-visit Dr. Amber Amaya Work Phone: [facility] Work Phone: Start: 10-09-2023 End: 10-09-2023 Patient encounter procedure Bhavana Rosales APRN.SUPERVISOR CHANNEL PROCESS Work Phone: [facility] [place] Comment on above: Annual physical exam (Primary Dx); Essential hypertension; Prediabetes; Hyperlipidemia, mixed; Obesity, Class II, BMI 35-39.9; Special screening for malignant neoplasms, colon; PVD (peripheral vascular disease) (HCC); Tinea versicolor Start: 09-27-2023 Non-patient / Non-visit Dr. Amber Amaya Work Phone: [facility] Work Phone: Start: 09-27-2023 End: 09-27-[address] Alice Amaya Work Phone: [facility] Work Phone: Start: 09-27-2023 End: 09-27-[address] Alice Amaya Work Phone: [facility] Work Phone: Start: 09-13-2023 Non-patient / Non-visit Dr. Amber Amaya Work Phone: [facility] Work Phone: Start: 08-30-2023 Non-patient / Non-visit Dr. Amber Amaya Work Phone: [facility] Work Phone: Start: 08-16-2023 Non-patient / Non-visit Dr. Ambre Amaya Work Phone: [facility] Work Phone: Start: 08-16-2023 End: 08-28-[address] Alice Amaya Work Phone: [facility] Work Phone: Start: 08-02-2023 Non-patient / Non-visit Dr. Amber Amaya Work Phone: [facility] Work Phone: Start: 07-19-2023 Non-patient / Non-visit Dr. Amber Amaya Work Phone: [facility] Work Phone: Start: 07-19-2023 End: 07-28-[address] Alice Amaya Work Phone: [facility] Work Phone: Start: 07-05-2023 Non-patient / Non-visit Dr. Amber Amaya Work Phone: [facility] Work Phone: Start: 06-23-2023 Refill Arvind Frausto MD Work Phone: [facility] Comment on above: Refill Request Start: 06-21-2023 Non-patient / Non-visit Dr. Amber Amaya Work Phone: [facility] Work Phone: Start: 06-21-2023 End: 06-28-[address] Alice Amaya Work Phone: [facility] Work Phone: Start: 06-07-2023 Non-patient / Non-visit Dr. Amber Amaya Work Phone: [facility] Work Phone: Start: 05-24-2023 Non-patient / Non-visit Dr. Amber Amaya Work Phone: [facility] Work Phone: Start: 05-24-2023 End: 05-28-[address] Alice Amaya Work Phone: [facility] Work Phone: Start: 05-24-2023 End: 05-28-[address] Alice Amaya Work Phone: [facility] Work Phone: Start: 05-10-2023 Non-patient / Non-visit Dr. Amber Amaya Work Phone: [facility] Work Phone: Start: 05-04-2023 Refill Arvind Frausto MD Work Phone: [facility] Comment on above: Dose Clarification; Refill Request Start: 04-12-2023 Non-patient / Non-visit Dr. Amber Amaya Work Phone: [facility] Work Phone: Start: 04-12-2023 End: 04-27-[address] Alice Amaya Work Phone: [facility] Work Phone: Start: 04-12-2023 End: 04-27-[address] Alice Amaya Work Phone: [facility] Work Phone: Start: 03-29-2023 Non-patient / Non-visit Dr. Amber Amaya Work Phone: [facility] Work Phone: Start: 03-15-2023 Non-patient / Non-visit Dr. Amber Amaya Work Phone: [facility] Start: 03-15-2023 End: 03-28-[address] Alice Amaya Work Phone: [facility] Work Phone: Start: 03-15-2023 End: 03-28-[address] Alice Amaya Work Phone: [facility] Start: 03-01-2023 Non-patient / Non-visit Dr. Amber Amaya Work Phone: [facility] Start: 02-15-2023 Non-patient / Non-visit Dr. Amber Amaya Work Phone: [facility] Start: 02-15-2023 End: 02-25-[address] Alice Amaya Work Phone: [facility] Work Phone: Start: 02-15-2023 End: 02-25-[address] Alice Amaya Work Phone: [facility] Start: 01-18-2023 Non-patient / Non-visit Dr. Amber Amaya Work Phone: [facility] Start: 01-18-2023 End: 01-26-[address] Alice Amaya Work Phone: [facility] Work Phone: Start: 01-18-2023 End: 01-26-[address] Alice Amaya Work Phone: [facility] Start: 01-04-2023 Non-patient / Non-visit Dr. Amber Amaya Work Phone: [facility] Start: 12-26-2022 Refill Arvind Frausto MD Work Phone: [facility] Comment on above: Refill Request Start: 12-21-2022 Non-patient / Non-visit Dr. Desiree Frausto Work Phone: [facility] Start: 12-21-2022 End: 12-26-[address] George Frausto Work Phone: [facility] Work Phone: Start: 12-21-2022 End: 12-26-[address] George Frausto Work Phone: [facility] Start: 12-14-2022 Non-patient / Non-visit Dr. Desiree Frausto Work Phone: [facility] Start: 11-30-2022 Non-patient / Non-visit Dr. Desiree Frausto Work Phone: [facility] Start: 11-09-2022 Non-patient / Non-visit Dr. Desiree Frausto Work Phone: [facility] Start: 11-09-2022 End: 11-28-[address] George Frausto Work Phone: [facility] Start: 11-02-2022 Telephone encounter Bhavana muir APRN.CNP Work Phone: [facility] Comment on above: Results Start: 10-31-2022 Telephone encounter George Frausto MD Work Phone: [facility] Comment on above: Results Start: 10-28-2022 End: 10-28-2022 Patient encounter procedure Arvind Frausto MD Work Phone: [facility] Comment on above: Annual physical exam (Primary Dx); Primary hypertension; Hyperlipidemia, mixed; Wound of left lower extremity, sequela; Wound of right lower extremity, subsequent encounter; PVD (peripheral vascular disease) (HCC); Tinea versicolor; Periodontal disease; Dental caries; Screening for colon cancer Start: 10-26-2022 Non-patient / Non-visit No [facility] Care Physician [facility] Start: 10-26-2022 End: 10-28-2022 ambulatory No Primary Care Physician [facility] Work Phone: Start: 10-26-2022 End: 10-28-2022 Discharged Recurring No [facility] [place] Start: 10-12-2022 End: 10-12-2022 Patient encounter procedure No Primary Care Physician [facility] Start: 10-12-2022 Non-patient / Non-visit No Sarah dickerson Care Physician [facility] Start: 09-28-2022 Non-patient / Non-visit No Sarah dickerson Care Physician [facility] Start: 09-27-2022 Refill Arvind Frausto MD Work Phone: [facility] [place] Comment on above: Refill Request Start: 09-14-2022 Non-patient / Non-visit No Sarah dickerson Care Physician [facility] Start: 09-14-2022 End: 09-27-2022 Discharged Recurring No [facility] Start: 08-31-2022 Non-patient / Non-visit No Sarah dickerson Care Physician [facility] Start: 08-31-2022 Registered Recurring No Primar y Care Physician [facility] [place] Start: 08-29-2022 Non-patient / Non-visit No Sarah dickerson Care Physician [facility] Start: 08-29-2022 End: 08-29-2022 ambulatory No Primary Care Physician [facility] Work Phone: Start: 08-29-2022 End: 08-29-2022 Patient encounter procedure No Primary Care Physician [facility]-Cardiovascula r Services Start: 08-24-2022 End: 08-24-2022 Patient encounter procedure No Primary Care Physician [facility] Surgery Start: 08-17-2022 Non-patient / Non-visit No Sarah dickerson Care Physician [facility] Start: 08-17-2022 End: 08-28-2022 ambulatory No Primary Care Physician [facility] Work Phone: Start: 08-17-2022 End: 08-28-2022 Discharged Recurring No [facility] Start: 08-10-2022 Non-patient / Non-visit No Sarah dickerson Care Physician [facility] Start: 07-31-2022 Non-patient / Non-visit No Sarah dickerson Care Physician [facility] Start: 07-31-2022 End: 07-31-2022 Admission to same day surgery center No Primary Care 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 [facility]-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 Start: 07-31-2022 End: 07-31-2022 ambulatory No Primary Care Physician [facility] Work Phone: Start: 07-31-2022 Non-patient / Non-visit No Sarah dickerson Care Physician [facility] Start: 07-27-2022 Non-patient / Non-visit No Sarah dickerson Care Physician [facility] Start: 07-27-2022 End: 07-28-2022 ambulatory No Primary Care Physician [facility] Work Phone: Start: 07-27-2022 End: 07-28-2022 Discharged Recurring No [facility] Start: 07-13-2022 Non-patient / Non-visit No Sarah Waters Physician [facility] Start: 06-29-2022 Non-patient / Non-visit No Sarah dickerson Care Physician [facility] Start: 06-15-2022 Non-patient / Non-visit No Sarah Waters Physician [facility] Start: 06-15-2022 End: 06-28-2022 ambulatory No Primary Care Physician [facility] Work Phone: Start: 06-15-2022 End: 06-28-2022 Discharged Recurring No [facility] Start: 06-13-2022 End: 06-13-2022 Patient encounter procedure No Primary Care Physician [facility] Surgery Start: 06-01-2022 Non-patient / Non-visit No Sarah dickerson Care Physician [facility] Start: 05-18-2022 Non-patient / Non-visit No Sarah dickerson Care Physician [facility] Start: 05-18-2022 End: 05-28-2022 Discharged Recurring No [facility] Start: 05-11-2022 Non-patient / Non-visit No Sarah dickerson Care Physician [facility] Start: 05-04-2022 Non-patient / Non-visit No Sarah dickerson Care Physician [facility] Start: 04-20-2022 Non-patient / Non-visit No Sarah dickerson Care Physician [facility] Start: 04-20-2022 End: 04-27-2022 Discharged Recurring No [facility] Start: 04-06-2022 Non-patient / Non-visit No Sarah dickerson Care Physician [facility] Start: 03-30-2022 Non-patient / Non-visit No Sarah Waters Physician [facility] Start: 03-28-2022 Refill Arvind Frausto MD Work Phone: [facility] Comment on above: Refill Request Start: 03-18-2022 Telephone encounter George Frausto MD Work Phone: [facility] Comment on above: Results Start: 03-17-2022 Telephone encounter George Frausto MD Work Phone: [facility] Comment on above: Orders Start: 03-16-2022 Non-patient / Non-visit No Sarah Waters Physician [facility] Start: 03-16-2022 End: 03-28-2022 Discharged Recurring No [facility] Start: 03-09-2022 Non-patient / Non-visit No Sarah dickerson Care Physician [facility] Start: 03-02-2022 Non-patient / Non-visit No Sarah dickerson Care Physician [facility] Start: 02-16-2022 Non-patient / Non-visit No Sarah dickerson Care Physician [facility] Start: 02-16-2022 End: 02-25-2022 Discharged Recurring No [facility] Start: 02-02-2022 Non-patient / Non-visit No Sarah tuan Care Physician [facility] Start: 01-19-2022 Non-patient / Non-visit No Sarah tuan Care Physician [facility] Start: 01-19-2022 End: 01-26-2022 Discharged Recurring No [facility] Start: 01-05-2022 Non-patient / Non-visit No Sarah tuan Care Physician [facility] Start: 12-22-2021 Non-patient / Non-visit No Sarah tuan Care Physician [facility] Start: 12-22-2021 End: 12-26-2021 Discharged Recurring No [facility] Start: 12-08-2021 Non-patient / Non-visit No Sarah tuan Care Physician [facility] Start: 11-24-2021 Non-patient / Non-visit No Sarah tuan Care Physician [facility] Start: 11-24-2021 End: 11-28-2021 Discharged Recurring No [facility] Start: 11-10-2021 Non-patient / Non-visit No Sarah tuan Care Physician [facility] Start: 10-27-2021 Non-patient / Non-visit No Sarah tuan Care Physician [facility] Start: 10-27-2021 End: 10-28-2021 Discharged Recurring No [facility] Start: 10-13-2021 Non-patient / Non-visit No Sarah tuan Care Physician [facility] Start: 09-29-2021 Non-patient / Non-visit No Sarah tuan Care Physician [facility] Start: 08-08-2021 End: 08-08-[address] EUGENIO HOUSE [facility] Procedures Date Procedure Procedure Detail Performing Clinician Start: 04-16-[address] Alice Amaya MD Work Phone: Start: 04-16-2025 Gram stain microscopy Shira Amaya MD Work Phone: Start: 04-16-2025 End: 04-16-2025 Microbial culture, routine Dr. Alice Amaya MD Work Phone: Start: 02-26-[address] George Farusto MD Work Phone: Start: 02-26-2025 Gram stain microscopy Shira Frausto MD Work Phone: Start: 02-26-2025 End: 02-26-2025 Microbial culture, routine Dr. Navarro Frausto MD Work Phone: Start: 11-20-[address] Alice Amaya MD Work Phone: Start: 11-20-2024 Gram stain microscopy Shira Amaya MD Work Phone: Start: 11-20-2024 Wound microscopy, cu lture and sensitivities Dr. Alice Amaya MD Work Phone: Start: 11-07-2024 Lipid 1996 panel - S miles or Plasma Bhavana Podlogar [employer]CHO[employer] SUPERVISOR.SUPER[employer]OR CH[employer] Work Phone: Start: 10-16-[address] Alice Amaya MD Work Phone: Start: 10-16-2024 Gram stain microscopy Shira Amaya MD Work Phone: Start: 10-16-2024 Microbial culture, routine Dr. Alice Amaya MD Work Phone: Start: 04-09-2024 Adult depression scr eening assessment Bhavana Podlogar SCHO[employer] CR[employer]ING GUARD SUPERVISOR.SUPERVISOR CHANNEL PROCESS Work Phone: Start: 10-11-2023 Lipid 1996 panel - S miles or Plasma Bhavana Podlogar [employer]CHO[employer] CR[employer]ING GUARD SUPERVISOR.SUPERVISOR CHANNEL PROCESS Work Phone: Start: 09-13-[address] Alice Amaya Work Phone: Start: 09-13-2023 Investigation of transfusion reaction Dr. Alice Amaya Work Phone: Start: 09-13-2023 Microbial culture, routine Dr. Alice Amaya Work Phone: Start: 06-21-[address] Alice Amaya Work Phone: Start: 06-21-2023 Investigation of transfusion reaction Dr. Alice Amaya Work Phone: Start: 06-21-2023 Microbial culture, routine Dr. Alice Amaya Work Phone: Start: 10-28-2022 Lipid 1996 panel - S miles or Plasma Bhavana Podlogralf SCHO[employer] CR[employer]ING GUARD SUPERVISOR.SUPERVISOR CHANNEL PROCESS Work Phone: Start: 07-01-2021 Adult depression scr eening assessment Arvind Frausto MD Work Phone: Anaerobic microbial culture No Primary Care Physician Investigation of transfusion reaction No Primary Care Physician Microbial culture, routine N o Primary Care Physician Plan of Treatment Date Care Activity Detail Author Start: 2038 RSV Vaccine (1 - 1-dose 75+ series) RSV Vaccine (1 - 1-dose 75+ series) [facility] Start: 11-07-2029 Lipid panel Lipid Screening [facility] Start: 10-11-2028 Lipid panel Lipid Screening [facility] Start: 11-07-2027 Diabetes Screening Diabetes Screening [facility] Start: 10-28-2027 Lipid panel Lipid Screening [facility] Start: 10-28-2027 LIPID SCREEN LIPID SCREEN [facility] Start: 04-09-2027 Diabetes Screening Diabetes Screening [facility] Start: 10-11-2026 Diabetes Screening Diabetes Screening [facility] Start: 07-01-2026 LIPID SCREEN LIPID SCREEN [facility] Start: 05-08-2026 Annual PCP Team Chronic Disease Visit Annual PCP Team Chronic Disease Visit [facility] Start: 05-08-2026 Pneumococcal Vaccine: 50+ (1 of 1 - PCV) Pneumococcal Vaccine: 50+ (1 of 1 - PCV) [facility] Comment on above: Postponed from 2013 (Declined at t his time) Start: 05-08-2026 Screening for malignant neoplasm of lung Lung Cancer Screening [facility] Comment on above: Postponed from 2013 (Declined at t his time) Start: 05-08-2026 Shingrix Vaccine (1 of 2) Shingrix Vaccine (1 of 2) [facility] Comment on above: Postponed from 2013 (Declined at t his time) Start: 05-04-2026 DIABETES SCREEN DIABETES SCREEN [facility] Start: 05-04-2026 Diabetes Screening Diabetes Screening [facility] Start: 11-09-2025 End: 11-09-2025 Patient encounter procedure 11/09/2025 7:00 AM EST Office Visit Family Medicine [facility] [address] [place] [id number] Arvind Frausto MD [address] [place] [id number] 6 month follow up Family Jonah Bejarano Comment on above: 6 month follow up Start: 11-07-2025 Annual PCP Team Chronic Disease Visit Annual PCP Team Chronic Disease Visit [facility] Start: 10-28-2025 DIABETES SCREEN DIABETES SCREEN [facility] Start: 06-29-2025 Influenza vaccination Influenza Vaccine (#1) [facility] Start: 05-08-2025 End: 08-07-2025 Comprehensive metabolic 2000 panel - Serum or Plasma [facility] Comment on above: Expected: 05/08/2025, Expires: Start: 05-08-2025 End: 08-07-2025 Hemoglobin A1c in Blood [facility] Work Phone: Comment on above: Expected: 05/08/2025, Expires: Start: 05-08-2025 End: 05-08-2025 Patient encounter procedure 05/08/2025 7:40 AM EDT Office Visit Family Jonah Bejarano [address] [place] [id number] Bhavana Rosales APRN.SUPERVISOR CHANNEL PROCESS [address] [place] [address] 6 month follow up Family Jonah Bejarano Comment on above: 6 month follow up Start: 04-09-2025 Annual PCP Team Chronic Disease Visit Annual PCP Team Chronic Disease Visit [facility] Start: 04-09-2025 Anxiety Screening Anxiety Screening [facility] Start: 04-09-2025 Depression Screening Depression Screening [facility] Start: 03-25-2025 Patient discharge [facility] Start: 03-17-2025 DIABETES SCREEN DIABETES SCREEN [facility] Start: 11-07-2024 End: 02-06-2025 CBC W Auto Differential panel - Blood [facility] Comment on above: Expected: 11/07/2024, Expires: Start: 11-07-2024 End: 02-06-2025 Comprehensive metabolic 2000 panel - Serum or Plasma [facility] Work Phone: Comment on above: Expected: 11/07/2024, Expires: Start: 11-07-2024 End: 02-06-2025 Hemoglobin A1c in Blood [facility] Comment on above: Expected: 11/07/2024, Expires: Start: 11-07-2024 End: 02-06-2025 Lipid 1996 panel - Serum or Plasma [facility] Comment on above: Expected: 11/07/2024, Expires: Start: 10-10-2024 End: 10-10-2024 Patient encounter procedure 10/10/2024 7:20 AM EST Office Visit Family Jonah Bejarano [address] [place] [address] PodlogarBhavana APRN.SUPERVISOR CHANNEL PROCESS [address] [place] [address] 6 month follow up Family [facility]arci Comment on above: 6 month follow up Start: 10-09-2024 Annual PCP Team Chronic Disease Visit Annual PCP Team Chronic Disease Visit [facility] Start: 10-09-2024 Covid-19 Vaccine () Covid-19 Vaccine () [facility] Comment on above: Postponed from 06/29/2023 (Declined at t his time) Start: 10-09-2024 RSV Vaccine (1 - 1-dose 60+ series) RSV Vaccine (1 - 1-dose 60+ series) [facility] Comment on above: Postponed from 2023 (Declined at t his time) Start: 07-01-2024 DIABETES SCREEN DIABETES SCREEN [facility] Start: 06-29-2024 Covid-19 Vaccine ( season) Covid-19 Vaccine ( season) [facility] Start: 06-29-2024 Influenza vaccination [facility] Start: 05-04-2024 ANNUAL PCP TEAM CHRONIC DISEASE VISIT ANNUAL PCP TEAM CHRONIC DISEASE VISIT [facility] Start: 04-27-2024 Influenza vaccination Influenza Vaccine (#1) [facility] Comment on above: Postponed from 06/29/2023 (Declined at t his time) Start: 04-09-2024 End: 07-09-2024 Comprehensive metabolic 2000 panel - Serum or Plasma [facility] Comment on above: Expected: 04/09/2024, Expires: 4 Start: 04-09-2024 End: 07-09-2024 Hemoglobin A1c in Blood [facility] Comment on above: Expected: 04/09/2024, Expires: 4 Start: 10-29-2023 Depression Assessment Depression Assessment [facility] Start: 10-28-2023 ANNUAL PCP TEAM CHRONIC DISEASE VISIT ANNUAL PCP TEAM CHRONIC DISEASE VISIT [facility] Start: 10-28-2023 COVID-19 VACCINE (3 - Booster for Pfizer series) COVID-19 VACCINE (3 - Booster for Pfizer series) [facility] Comment on above: Postponed from 11/08/2021 (Declined at t his time) Start: 10-28-2023 COVID-19 VACCINE (3 - Pfizer series) COVID-19 VACCINE (3 - Pfizer series) [facility] Comment on above: Postponed from 11/08/2021 (Declined at t his time) Start: 10-28-2023 Influenza vaccination LUNG CANCER SCREENING [facility] Comment on above: Postponed from 2013 (Declined at t his time) Start: 10-28-2023 Screening for malignant neoplasm of lung Lung Cancer Screening [facility] Comment on above: Postponed from 2013 (Declined at t his time) Start: 10-28-2023 SHINGRIX VACCINE (1 of 2) SHINGRIX VACCINE (1 of 2) [facility] Comment on above: Postponed from 2013 (Declined at t his time) Start: 10-28-2023 Urine microalbumin profile [facility] Comment on above: Postponed from 1982 (Declined at t his time) Start: 10-09-2023 End: 01-08-2024 CBC W Auto Differential panel - Blood CBC + DIFF Lab Routine Annual physical exam Expected: 10/09/2023, Expires: 01/08/2024 [facility] Work Phone: Comment on above: Expected: 10/09/2023, Expires: 4 Start: 10-09-2023 End: 01-08-2024 Comprehensive metabolic 2000 panel - Serum or Plasma COMP METABOLIC PANEL Lab Routine Essential hypertension Expected: 10/09/2023, Expires: 01/08/2024 [facility] Work Phone: Comment on above: Expected: 10/09/2023, Expires: 4 Start: 10-09-2023 End: 01-08-2024 Hemoglobin A1c in Blood HGB A1C Lab Routine Prediabetes Expected: 10/09/2023, Expires: 01/08/2024 [facility] Work Phone: Comment on above: Expected: 10/09/2023, Expires: 4 Start: 10-09-2023 End: 01-08-2024 Lipid 1996 panel - Serum or Plasma LIPID PANEL BASIC Lab Routine Hyperlipidemia, mixed Expected: 10/09/2023, Expires: 01/08/2024 [facility] Work Phone: Comment on above: Expected: 10/09/2023, Expires: 4 Start: 06-29-2023 Influenza vaccination INFLUENZA (#1) [facility] Start: 2023 RSV Vaccine (1 - Risk 60-74 years 1-dose series) RSV Vaccine (1 - Risk 60-74 years 1-dose series) [facility] Start: 04-27-2023 Influenza vaccination INFLUENZA (#1) [facility] Comment on above: Postponed from 06/29/2022 (Declined at t his time) Start: 03-17-2023 ANNUAL PCP TEAM CHRONIC DISEASE VISIT ANNUAL PCP TEAM CHRONIC DISEASE VISIT [facility] Start: 10-29-2022 DEPRESSION ASSESSMENT DEPRESSION ASSESSMENT [facility] Start: 07-31-2022 End: 07-31-2022 [facility] Work Phone: Start: 07-31-2022 Notification of physician [facility] Work Phone: Start: 07-31-2022 Patient discharge [facility] Work Phone: Start: 07-31-2022 Provision of activity privileges [facility] Work Phone: Start: 07-31-2022 Scheduling [facility] Work Phone: Start: 07-31-2022 Taking patient vital signs [facility] Work Phone: Start: 07-31-2022 Vascular disease risk assessment [facility] Work Phone: Start: 07-31-2022 Implantation to cardiovascular system Insertion, Vascular Port (Not Applicable) [facility] Work Phone: Start: 07-31-2022 Electrocardiographic procedure [facility] Work Phone: Start: 07-01-2022 Adult depression screening assessment DEPRESSION SCREENING [facility] Start: 07-01-2022 Urine microalbumin profile DTAP,TDAP,TD (1 - Tdap) [facility] Comment on above: Postponed from 1982 (Declined at t his time) Start: 06-29-2022 Influenza vaccination [facility] Start: 02-11-2022 COVID-19 VACCINE (3 - Booster for Pfizer series) COVID-19 VACCINE (3 - Booster for Pfizer series) [facility] Start: 11-08-2021 COVID-19 VACCINE (3 - Booster for Pfizer series) COVID-19 VACCINE (3 - Booster for Pfizer series) [facility] Start: 10-29-2021 DEPRESSION ASSESSMENT DEPRESSION ASSESSMENT [facility] Start: 2018 PROSTATE CANCER SCREENING DISCUSSION PROSTATE CANCER SCREENING DISCUSSION [facility] Start: 2018 Prostate specific antigen measurement Prostate Cancer Screening Discussion [facility] Start: 2013 Influenza vaccination LUNG CANCER SCREENING [facility] Start: 2013 Pneumococcal Vaccine: 50+ (1 of 1 - PCV) Pneumococcal Vaccine: 50+ (1 of 1 - PCV) [facility] Start: 2013 Screening for malignant neoplasm of lung Lung Cancer Screening [facility] Start: 2013 SHINGRIX VACCINE (1 of 2) SHINGRIX VACCINE (1 of 2) [facility] Start: 2008 COLOGUARD (FIT-DNA) COLOGUARD (FIT-DNA) [facility] Start: 2008 Colonoscopy COLONOSCOPY [facility] Start: 2008 COLORECTAL CANCER SCREENING COLORECTAL CANCER SCREENING [facility] Start: [address] COLONOGRAPHY [facility] Start: 2008 FECAL OCCULT BLOOD FECAL OCCULT BLOOD [facility] Start: 2008 Prostate specific antigen measurement Prostate Cancer Screening Discussion [facility] Start: 2008 Screening for malignant neoplasm of colon [facility] Start: 2008 SIGMOIDOSCOPY SIGMOIDOSCOPY [facility] Start: 1982 Urine microalbumin profile [facility] Start: 1981 BP CONTROLLED (<130/80) BP CONTROLLED (<130/80) [facility] COLOGUARD COLOGUARD Lab Ro utine Screening for colon cancer Ordered: 04/09/2024 [facility] Work Phone: Comment on above: Ordered: 04/09/2024 COLOGUARD COLOGUARD Lab Ro utine Encounter for colorectal cancer screening using Cologuard test Ordered: 05/08/2025 [facility] Comment on above: Ordered: 05/08/2025 Patient referral [facility] Work Phone: End: 10-09-2024 Screening colonoscopy COLONOSCOPY SCREENING Endoscopy Routine Special screening for malignant neoplasms, colon 1 Occurrences starting 10/09/2023 until 10/09/2024 [facility] Work Phone: Comment on above: 1 Occurrences starting 10/09/2023 until 10/09/2024 US.doppler Lower ext remity vessels [facility] Work Phone: [facility] Immunizations Immunization Date Immunization Notes Care Provider Fa cility 09-13-2021 COVID-19 vaccine, ag e 12+ yr (PFIZER-BIONTECH - PURPLE TOP) Arvind Frausto MD Work Phone: [facility] Work Phone: 07-07-2021 Covid (Pfizer) No Primary Ca re Physician [facility] 07-01-2021 COVID-19 vaccine, ag e 12+ yr (PFIZER-BIONTECH - PURPLE TOP) Arvind Frausto MD Work Phone: [facility] Payers Date Payer Category Payer Self-pay [id number] 2023 Private Health Insurance [id number] 2023 Unknown [id number] 2020 Unknown [employer] PPO [id number] 2020-Present [phone] [address] [place] [id number] PPO [id number] 2020 Unknown [employer] PPO [id number] 2020-Present [phone] [place] [id number] PPO [id number] 1963 Unknown [id number] 2..840.1.984150.3.579.2.6 51 Unknown [id number] Unknown [facility] [id number] Unknown [id number] 2.16.840.1.912674.3.579.2.4 62 Unknown [id number] 2.16.840.1.257978.3.579.2.4 62 Unknown [id number] 2.16.840.1.008737.3.579.2.4 62 Unknown [id number] 2.16.840.1.911279.3.579.2.4 62 Unknown [id number] 2.16.840.1.718747.3.579.2.4 62 Unknown [id number] 2.16.840.1.858200.3.579.2.4 62 Unknown [id number] 2.16.840.1.185162.3.579.2.4 62 Unknown [id number] 2.16.840.1.089866.3.579.2.4 62 Unknown [id number] 2.16.840.1.222714.3.579.2.4 62 Unknown [id number] 2.16.840.1.940717.3.579.2.4 62 Unknown [id number] 2.16.840.1.412405.3.579.2.4 62 Unknown [id number] 2.16.840.1.834232.3.579.2.4 62 Unknown [id number] 2.16.840.1.449716.3.579.2.4 62 Unknown [id number] 2.16.840.1.347189.3.579.2.4 62 Unknown [id number] 2.16.840.1.690837.3.579.2.4 62 Unknown [id number] 2.16.840.1.060721.3.579.2.4 62 Unknown [id number] 2.16.840.1.540763.3.579.2.4 62 Unknown [id number] 2.16.840.1.653349.3.579.2.4 62 Unknown [id number] 2.16.840.1.709410.3.579.2.4 62 Unknown [id number] 2.16.840.1.335230.3.579.2.4 62 Unknown [id number] 2.16.840.1.788262.3.579.2.4 62 Unknown [id number] 2.16.840.1.868201.3.579.2.4 62 Unknown [id number] 2.16.840.1.723377.3.579.2.4 62 Unknown [id number] 2.16.840.1.538961.3.579.2.4 62 Unknown [id number] 2.16.840.1.013350.3.579.2.4 62 Unknown [id number] 2.16.840.1.593061.3.579.2.4 62 Unknown [id number] 2.16.840.1.403232.3.579.2.4 62 Unknown [id number] 2.16.840.1.330495.3.579.2.4 62 Unknown [id number] 2.16.840.1.853135.3.579.2.4 62 Unknown [id number] 2.16.840.1.142405.3.579.2.4 62 Unknown [id number] 2.16.840.1.697450.3.579.2.4 62 Unknown [id number] 2.16.840.1.379034.3.579.2.4 62 Unknown [id number] 2.16.840.1.787378.3.579.2.4 62 Unknown [id number] 2.16.840.1.473988.3.579.2.4 62 Unknown [id number] 2.16.840.1.546621.3.579.2.4 62 Unknown [id number] 2.16.840.1.285006.3.579.2.4 62 Unknown [id number] 2.16.840.1.342392.3.579.2.4 62 Unknown [id number] 2.16.840.1.714208.3.579.2.4 62 Unknown [id number] 2.16.840.1.913299.3.579.2.4 62 Unknown [id number] 2.16.840.1.312206.3.579.2.4 62 Unknown [id number] 2.16.840.1.405613.3.579.2.4 62 Unknown [id number] 2.16.840.1.848022.3.579.2.4 62 Unknown [id number] 2.16.840.1.772245.3.579.2.4 62 Unknown [id number] 2.16.840.1.397144.3.579.2.4 62 Unknown [id number] 2.16.840.1.253808.3.579.2.4 62 Unknown [id number] 2.16.840.1.167260.3.579.2.4 62 Social History Date Type Detail Facility Start: 07-19-2021 End: 10-12-2022 Tobacco smoking status [facility] Unknown if ever smoked [facility] Start: 1965 Sex Assigned At Male [facility] Start: 07-02-2020 End: 11-07-2024 Tobacco smoking status [facility] Ex-smoker [facility] Start: 08-01-1981 End: 08-01-2019 History of tobacco use Current smoker [facility] Start: 08-01-1981 End: 08-01-2019 History of tobacco use Cigarette Smoker [facility] Start: 07-02-2020 End: 05-04-2023 Cigarettes smoked current (pack per day) - Reported 1 [facility] Work Phone: Start: 07-02-2020 End: 11-07-2024 Tobacco use and exposure Former smokeless tobacco user [facility] End: 07-02-2000 History of tobacco use Chews Tobacco [facility] Start: 03-17-2022 End: 05-08-2025 Alcohol intake Current drinker of alcohol (finding) [facility] Start: 07-02-2020 History SDOH Alcohol Frequency 3 [facility] Start: 07-02-2020 History SDOH Alcohol Binge 4 [facility] Start: 1965 Sex Assigned At Not on file [facility] Start: 03-07-2022 End: 03-17-2022 Exposure to SARS-CoV-2 (event) Not sure [facility] Start: 08-08-2016 Occasional [facility] Start: 08-08-2016 None [facility] Start: 08-08-2016 Spouse/ Significant Other [facility] Start: 04-28-2017 Cigarettes [facility] Start: 07-02-2020 End: 05-04-2023 Alcohol Use Disorder Identification Test - Consumption [AUDIT-C] [facility] Work Phone: How often to you hav e a drink containing alcohol? 2-4 times a month [facility] Work Phone: How many standard dr inks containing alcohol do you have on a typical day? 5 or 6 [facility] Work Phone: How often do you hav e 6 or more drinks on 1 occasion? Weekly [facility] Work Phone: Adult Depression Scr eening Assessment 0 [facility] Work Phone: Start: 01-27-2025 Sex Male (finding) [facility] Goals Date Patient Goal Desired Activity /State Functional Status Date Assessment Result Facility 07-31-2022 Functional status Ambulates [facility] Work Phone: Mental Status Date Assessment Result Facility 07-31-2022 Cognitive function Voice/Name [facility] Work Phone: Clinical Notes 07-01-2021 to 05-08-2025 Patient InstructionsBhavana Rosales APRN.[facility] - 05/08/2025 7:40 AM EDT Note Date & Type Note Facility 05-08-2025 Instructions Bhavana Rosales APRN.[facility] - 05/08/2025 7:59 AM EDT - Continue hydrochlorothiazide 25 mg once daily for blood pressure. - Continue atorvastatin 20 mg once daily for cholesterol. - Take fluconazole (Diflucan) as prescribed: 2 tablets by mouth once weekly for 2 weeks; prescription sent to [facility]. - Use an [id number]-wswsskr anti-dandruff shampoo (e.g., Head & Shoulders) on affected skin during your shower; leave it on for 5-10 minutes before rinsing. - Wash your clothes, towels, and bedding in hot water to help clear the rash. - Begin a new Cologuard colon cancer screening test; call our office to order your kit. - Consider lung cancer screening; let us know if you d like to schedule it. - Continue walking (with your dog and at work) and work on losing extra weight to help control your blood pressure. documented in this encounter [facility] 05-08-2025 History of Present illness Narrative 05/08/2025 Patient presents with: 6 Month Exam Recording using [employer] software for draft documentation of the visit was discussed with the patient/authorized lead customer service representative; all questions welcomed and answered. Patient/authorized lead customer service representative agreed to proceed SUBJECTIVE: This is a 59 year old that is here today for Above Complaints. Chronic Venous Insufficiency: - Undergoing treatment with foam injections in both lower extremities to improve circulation. - Treatment performed by a vascular specialist at [facility] every two weeks. - Noted enlargement and slight infection in the wound post-treatment; no antibiotics prescribed. - Ruben has been dealing with this condition for approximately 25 years. Recurrent Rash: - Rash located on the chest and arms - Previously treated with fluconazole without significant improvement. - Effective treatment in the past was provided by Dr. Frausto. Hypertension: - Managed with hydrochlorothiazide 25 mg daily. - Blood pressure readings are taken at medical appointments; Ruben does not monitor at home. - Denies chest pain or dyspnea. Hyperlipidemia: - Managed with atorvastatin 20 mg daily. - Adheres to a low-cholesterol diet hardly at all. 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 - Weight has increased since October. - Former smoker, quit approximately 8 years ago after smoking intermittently since age 16. - Consumes grapes as snacks regularly. PAST MEDICAL HISTORY Diagnosis Date Dental caries History of tobacco use Hypertension Obesity Periodontal disease PVD (peripheral vascular disease) [facility] Vascular Wound of left leg wound center [facility], not healing since 2018 ALLERGIES Ciprofloxacin MEDICATIONS Current Outpatient Medications Medication Sig atorvastatin (LIPITOR) 20 mg tablet Take 1 tablet by mouth daily at bedtime. For cholesterol. hydroCHLOROthiazide 25 mg tablet Take 1 tablet by mouth once daily. aspirin, enteric coated (ASPIRIN, ENTERIC COATED) 81 mg EC tablet Take 81 mg by mouth once daily. Ascorbic Acid (VITAMIN C) 100 mg tablet Take 100 mg by mouth once daily. calcium phosphate dibas/vit D3 (VITAMIN D, WITH CALCIUM, ORAL) Take by mouth. Vitamin E, dl, acetate, (VITAMIN E) 100 unit capsule Take 100 Units by mouth once daily. Zinc 50 mg tab Take 1 tablet by mouth once daily. fluconazole (DIFLUCAN) 150 mg tablet Take two tablets once weekly for two weeks No current facility-administered medications for this visit. Medications and allergies reviewed by this provider. SOCIAL HISTORY Social History Tobacco Use Smoking status: Former Current packs/day: 0.00 Average packs/day: 1 pack/day for 38.0 years (38.0 ttl pk-yrs) Types: Cigarettes Start date: 08/01/1981 Quit date: 08/01/2019 Years since quittin.7 Smokeless tobacco: Former Types: Chew Quit date: 07/02/2000 Vaping Use Vaping status: Never Used Substance Use Topics Alcohol use: Yes Alcohol/week: 2.0 standard drinks of alcohol Types: 2 Cans of Beer (12oz) per week Drug use: Never REVIEW OF SYSTEMS All other reviewed and negative other than HPI. OBJECTIVE: BP 134/76 Pulse 76 Resp 14 Wt 120.7 kg (266 lb) BMI 40.45 kg/m . Vital signs reviewed by this provider. GENERAL: NAD, alert and oriented. SKIN: Rash noted on chest and antecubital areas bilaterally consistent with tinea versicolor EYES: conjunctiva clear. LUNGS: Clear to auscultation bilaterally, no wheezes/rhonchi/rales. HEART: Regular rate and rhythm, no murmurs. No ectopy. EXTREMITIES: no edema. Latest Ref Rng 11/07/2024 WBC 3.70 - 11.00 k/uL 6.81 RBC 4.20 - 6.00 m/uL 5.13 Hemoglobin 13.0 - 17.0 g/dL 15.7 Hematocrit 39.0 - 51.0 % 46.8 MCV 80.0 - 100.0 fL 91.2 MCH 26.0 - 34.0 pg 30.6 MCHC 30.5 - 36.0 g/dL 33.5 RDW-CV 11.5 - 15.0 % 12.6 Platelet Count 150 - 400 k/uL 207 MPV 9.0 - 12.7 fL 11.7 Neut% % 47.6 Abs Neut (ANC) 1.45 - 7.50 k/uL 3.24 Lymph% % 35.5 Abs Lymph 1.00 - 4.00 k/uL 2.42 Canyon% % 13.7 Abs Canyon <0.87 k/uL 0.93 (H) Eosin% % 2.2 Abs Eosin <0.46 k/uL 0.15 Baso% % 0.7 Abs Baso <0.11 k/uL 0.05 Immature Gran % % 0.3 IMMATURE GRANS (ABS) <0.10 k/uL <0.03 NRBC /100 WBC 0.0 Absolute nRBC <0.01 k/uL <0.01 DTYPE Auto Protein, Total 6.3 - 8.0 g/dL 7.9 Albumin 3.9 - 4.9 g/dL 4.4 Calcium 8.5 - 10.2 mg/dL 9.4 Bilirubin, Total 0.2 - 1.3 mg/dL 0.4 Alkaline Phosphatase 38 - 113 U/L 100 AST 14 - 40 U/L 32 ALT 10 - 54 U/L 48 Glucose 74 - 99 mg/dL 105 (H) BUN 9 - 24 mg/dL 17 Creatinine 0.73 - 1.22 mg/dL 0.97 Sodium 136 - 144 mmol/L 140 Potassium 3.7 - 5.1 mmol/L 3.7 Chloride 98 - 107 mmol/L 103 CO2 22 - 30 mmol/L 23 Anion Gap 8 - 15 mmol/L 14 eGFR >=60 mL/min/1.73m 89 Cholesterol, Total <200 mg/dL 134 Triglyceride <150 mg/dL 92 HDL Cholesterol >39 mg/dL 36 (L) Non HDL Cholesterol <130 mg/dL 98 Fasting Time hrs 12 VLDL Cholesterol <30 mg/dL 18 TC:HDL Ratio <5.10 3.72 LDL Cholesterol, Calculated <100 mg/dL 80 LDL:HDL Ratio <2.54 2.22 Hemoglobin A1C 4.3 - 5.6 % 6.1 (H) Estimated Average Glucose mg/dL 128 DTaP,Tdap,Td Vaccine(1 - Tdap) Never done Prostate Cancer Screening Discussion Never done Colorectal Cancer Screening Never done RSV Vaccine(1 - Risk 60-74 years 1-dose series) Never done Covid-19 Vaccine(3 - season) due on 06/29/2024 Depression Screening due on 04/09/2025 Anxiety Screening due on 04/09/2025 Lung Cancer Screening due on 05/08/2026 Shingrix Vaccine(1 of 2) due on 05/08/2026 Pneumococcal Vaccine: 50+(1 of 1 - PCV) due on 05/08/2026 Influenza Vaccine(1) due on 06/29/2025 Annual PCP Team Chronic Disease Visit due on 05/08/2026 Diabetes Screening due on 11/07/2027 Lipid Screening due on 11/07/2029 Hepatitis C Screening Completed HIV Screening Completed 1. Essential hypertension (I10) - Blood pressure reading today was 144/86 mmHg initially, improved to 134/76 mmHg on recheck. - Continue hydrochlorothiazide 25 mg daily. - Advised patient to monitor blood pressure regularly. 2. Hyperlipidemia, mixed (E78.2) - Continue atorvastatin 20 mg daily. - Discussed importance of adhering to a low cholesterol diet. 3. Prediabetes (R73.03) - Discussed lifestyle modifications including diet and exercise to prevent progression to diabetes. - Encouraged patient to continue walking and increase physical activity. 4. PVD (peripheral vascular disease) (I73.9) - Undergoing treatment with foam injections in both legs by vascular specialist at [facility]. - Next treatment scheduled for next week. - Monitor for signs of infection and report any changes to the vascular specialist. 5. Encounter for colorectal cancer screening using Cologuard test (Z12.11) - Previous Cologuard test was unsuccessful. - Ordered a new Cologuard test. 6. Obesity, Class III, BMI 40-49.9 (morbid obesity) (HCC) (E66.813) - Discussed weight management strategies including diet and exercise. - Encouraged patient to continue walking and increase physical activity. 7. Tinea versicolor (B36.0) - Prescribed fluconazole 300 mg once weekly for 2 weeks. - Advised use of [id number] antifungal shampoos such as Head and Shoulders, to be applied during showers and left on the skin for 5-10 minutes before rinsing. - Discussed potential for skin discoloration to persist for weeks after treatment. - If no improvement, consider referral to dermatology. 8. Personal history of tobacco use (Z87.891) - Quit smoking approximately 8 years ago after smoking intermittently since age 16. - Discussed lung cancer screening; patient declines screening Bhavana Rosales APRN.CNP Medical Decision Making: Problems: Moderate: 2+ stable chronic illnesses Data: Unique test(s) ordered: 3+ Risk: Moderate: Drug management Medical Decision Making Level: 4 - Moderate documented in this encounter [facility] 05-08-2025 Note HNO ID: [id number] Author: BHAVANA ROSALES APRN.CNP Service: ? Author Type: Nurse Practitioner Type: Progress Notes Filed: 05/08/2025 08:22 Note Text: 05/08/2025 Patient presents with: 6 Month Exam Recording using [employer] software for draft documentation of the visit was discussed with the patient/authorized lead customer service representative; all questions welcomed and answered. Patient/authorized lead customer service representative agreed to proceed SUBJECTIVE: This is a 59 year old that is here today for Above Complaints. Chronic Venous Insufficiency: - Undergoing treatment with foam injections in both lower extremities to improve circulation. - Treatment performed by a vascular specialist at [facility] every two weeks. - Noted enlargement and slight infection in the wound post-treatment; no antibiotics prescribed. - Ruben has been dealing with this condition for approximately 25 years. Recurrent Rash: - Rash located on the chest and arms - Previously treated with fluconazole without significant improvement. - Effective treatment in the past was provided by Dr. Frausto. Hypertension: - Managed with hydrochlorothiazide 25 mg daily. - Blood pressure readings are taken at medical appointments; Ruben does not monitor at home. - Denies chest pain or dyspnea. Hyperlipidemia: - Managed with atorvastatin 20 mg daily. - Adheres to a low-cholesterol diet hardly at all. 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 - Weight has increased since October. - Former smoker, quit approximately 8 years ago after smoking intermittently since age 16. - Consumes grapes as snacks regularly. PAST MEDICAL HISTORY Diagnosis Date Dental caries History of tobacco use Hypertension Obesity Periodontal disease PVD (peripheral vascular disease) [facility] Vascular Wound of left leg wound center [facility], not healing since 2019 ALLERGIES Ciprofloxacin MEDICATIONS Current Outpatient Medications Medication Sig atorvastatin (LIPITOR) 20 mg tablet Take 1 tablet by mouth daily at bedtime. For cholesterol. hydroCHLOROthiazide 25 mg tablet Take 1 tablet by mouth once daily. aspirin, enteric coated (ASPIRIN, ENTERIC COATED) 81 mg EC tablet Take 81 mg by mouth once daily. Ascorbic Acid (VITAMIN C) 100 mg tablet Take 100 mg by mouth once daily. calcium phosphate dibas/vit D3 (VITAMIN D, WITH CALCIUM, ORAL) Take by mouth. Vitamin E, dl, acetate, (VITAMIN E) 100 unit capsule Take 100 Units by mouth once daily. Zinc 50 mg tab Take 1 tablet by mouth once daily. fluconazole (DIFLUCAN) 150 mg tablet Take two tablets once weekly for two weeks No current facility-administered medications for this visit. Medications and allergies reviewed by this provider. SOCIAL HISTORY Social History Tobacco Use Smoking status: Former Current packs/day: 0.00 Average packs/day: 1 pack/day for 38.0 years (38.0 ttl pk-yrs) Types: Cigarettes Start date: 08/01/1981 Quit date: 08/01/2019 Years since quittin.7 Smokeless tobacco: Former Types: Chew Quit date: 07/02/2000 Vaping Use Vaping status: Never Used Substance Use Topics Alcohol use: Yes Alcohol/week: 2.0 standard drinks of alcohol Types: 2 Cans of Beer (12oz) per week Drug use: Never REVIEW OF SYSTEMS All other reviewed and negative other than HPI. OBJECTIVE: BP 134/76 Pulse 76 Resp 14 Wt 120.7 kg (266 lb) BMI 40.45 kg/m? . Vital signs reviewed by this provider. GENERAL: NAD, alert and oriented. SKIN: Rash noted on chest and antecubital areas bilaterally consistent with tinea versicolor EYES: conjunctiva clear. LUNGS: Clear to auscultation bilaterally, no wheezes/rhonchi/rales. HEART: Regular rate and rhythm, no murmurs. No ectopy. EXTREMITIES: no edema. Latest Ref Rng 11/07/2024 WBC 3.70 - 11.00 k/uL 6.81 RBC 4.20 - 6.00 m/uL 5.13 Hemoglobin 13.0 - 17.0 g/dL 15.7 Hematocrit 39.0 - 51.0 % 46.8 MCV 80.0 - 100.0 fL 91.2 MCH 26.0 - 34.0 pg 30.6 MCHC 30.5 - 36.0 g/dL 33.5 RDW-CV 11.5 - 15.0 % 12.6 Platelet Count 150 - 400 k/uL 207 MPV 9.0 - 12.7 fL 11.7 Neut% % 47.6 Abs Neut (ANC) 1.45 - 7.50 k/uL 3.24 Lymph% % 35.5 Abs Lymph 1.00 - 4.00 k/uL 2.42 Canyon% % 13.7 Abs Canyon <0.87 k/uL 0.93 (H) Eosin% % 2.2 Abs Eosin <0.46 k/uL 0.15 Baso% % 0.7 Abs Baso <0.11 k/uL 0.05 Immature Gran % % 0.3 IMMATURE GRANS (ABS) <0.10 k/uL <0.03 NRBC /100 WBC 0.0 Absolute nRBC <0.01 k/uL <0.01 DTYPE Auto Protein, Total 6.3 - 8.0 g/dL 7.9 Albumin 3.9 - 4.9 g/dL 4.4 Calcium 8.5 - 10.2 mg/dL 9.4 Bilirubin, Total 0.2 - 1.3 mg/dL 0.4 Alkaline Phosphatase 38 - 113 U/L 100 AST 14 - 40 U/L 32 ALT 10 - 54 U/L 48 Glucose 74 - 99 mg/dL 105 (H) BUN 9 - 24 mg/dL 17 Creatinine 0.73 - 1.22 mg/dL 0.97 Sodium 136 - 144 mmol/L 140 Potassium 3.7 - 5.1 mmol/L 3.7 Chloride 98 - 107 mmol/L 103 CO2 22 - 30 mmol/L 23 Anion Gap 8 - 15 mmol/L 14 eGFR >=60 mL/min/1.73m? 89 Ch (more content not included)... [facility] 04-16-2025 Progress note Note Date/Time April 16, 2025 1:39pm [facility] [address] [place] [address] Progress Note - Wound Care 04/16/25 1333 MR#: [id number] Acct: [id number] Name: RUBEN ALLEN Jr. Rep #:[id number] 20 : 1965 59 From: Alice dickerson MD PCP: Dr. George Frausto MD Status :REG RCR Location: History of Present Illness Date of Service: 04/16/25 Chief Complaint: Bilateral lower extremity ulcers History of Wound: This is a 54-year-old male presents to wound healing center with a long-standing history of chronic venous insufficiency, chronic venous hypertension, lower extremity edema, lower extremity pain, and chronic left lower extremity ulcer. 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 He is currently wearing graduated compression stockings which are documented to be 20-30 mmHg compression and these are thigh high. He reports great compliance with use. Heis also had previous arterial work-up with no intervention recommended by letter, his vascular surgeon. He denies taking nutritional supplementation. [facility] and had a biopsy of the ulcer site. He also was previously treated by infectious disease for various contaminations and infections. He is not antibiotics at this time nor does he have any redness or odor coming from the wound. He denies fever, chill, nausea, vomiting, loss of appetite. 05/18/22: Mr. Allen presents with a new right lower extremity ulceration. He states that this has been present for months and he has been trying to manage itat home without any significant improvement. Opened up months ago, no known precipitating factor. Has been applying wound dressings without any significantimprovement. He reports increased drainage. Denies significant pain. No chills, fever or feeling of unwell. 10/16/24: Mr. Allen presents with a new right lower extremity ulceration. He states that it started out as a very small area that was slipping and then in the last week, became rather extensive. He also reports a foul smell. Has noted increase lower extremity edema. He states that he has been wearing his compression (20 to 30 mmHg) consistently. No chills, fever or otherwise feelingof unwell. Also has a new area on his left lower medial leg. He states that hehas been applying same 1 products to these new areas. Progress of Wound: Worsening of his right lower extremity ulceration. Patient states that he notedit this morning when he took his dressing off. Increased drainage noted with dressing change but otherwise, no increased pain or concerns prior to today. Scheduled for his left lower extremity procedure on the 14 of May. He statesthat he has been doing dressing changes as recommended. Objective Data Objective Data Vital Signs: Vital Signs Temp Pulse Resp BP Pulse Ox O2 Del Method 97.3 F L 104 H 18 162/82 H 99 Room Air 04/16/25 08:49 04/16/25 08:49 04/16/25 08:49 04/16/25 08:49 03/29/25 00:18 04/16/25 08:49 Oxygen Delivery Method Room Air Body Mass Index (BMI) 31.4 Charges/Coding Procedures Integumentary 111xxx-113xx: [id number] Lakeisha subq tissue 20 sq cm/< Physical Exam Const alert, oriented x3 and no apparent distress General Appearance: cooperative and comfortable HEENT normocephalic Head and Scalp: normal to inspection, normocephalic and atraumatic Eyes EOMs intact bilaterally Neck full ROM and supple General: normal visual inspection Resp normal respiratory effort Effort and Inspection: able to speak in complete sentences Extremity normal to inspection General Extremity: edema Skin General Skin Exam: dry skin Wounds: wounds noted size Size: See clinical note, bed granulating well, marginsmacerated, well defined and surrounding erythema, no odor, open and surrounding erythema Neuro oriented x3, CN's II-XII intact bilaterally, moves all extremities and no focal motor deficits Psych mental status grossly normal, thought process normal, cooperative and affect normal Debridement Note Debridement Note Wound debrided: Right medial ankle Type of Debridement: Excisional debridement Anesthesia Used: 5% Lidocaine Gel Depth: Down to and including healthy tissue and in the subcutaneous layer Percentage of wound debrided: 100 Instrument Used: 5mm curette Tissue Removed: Slough and devitalized tissue Severity: Fat Layer Exposed Amount of bleeding with debridement: Mild Bleeding Controlled with: Pressure Patient tolerated procedure: Patient tolerated procedure well Post-Debridement Measurements and Additional Note: Post-Debridement Measurements/Treatment KIMBERLY - Nurse 1 - General Ulcer Assessment Start: 04/09/25 08:15 Freq: Status: Active Protocol: SHANTA Activity Type Activity Date Activity User E-sign Co-sign Detail Recorded Client Recorded Date Recorded By Document 04/09/25 08:15 RB [id number] 04/09/25 08:17 RB Document 04/16/25 08:49 KW [id number] 04/16/25 08:53 KW 04/09/25 04/16/25 08:15 08:49 - Today's Visit Information Type of service Follow-up Visit Follow-up Visit (Physician/SUPERVISOR CHANNEL PROCESS (Physician/SUPERVISOR CHANNEL PROCESS ) ) Arrival Mode Ambulatory Ambulatory Transfer Assistance None Patient Identification Verified (Name & Yes Yes ) Patient Requires Transmission-Based No Precautions Height and Weight Body Mass Index (BMI) 31.4 31.4 BMI Classification Obese Obese Vital Signs Temperature (97.8 F-99.1 F) 97.3 F L 97.3 F L Temperature Source Temporal Temporal Pulse Rate (60-100) 78 104 H Pulse Location Monitor Monitor Respiratory Rate (12-18) 18 18 Respiratory rate source Observation Observation Oxygen Delivery Method Room Air Blood Pressure (90/60-120/80) 149/86 H 162/82 H Blood Pressure Mean (mm Hg) 107 108 Source Monitor Monitor Position Semi-Fowlers Semi-Fowlers Blood Pressure Location Left Arm Left Arm History Since Last Visit- (Skip if this is Patient's initial visit) Have you changed medications since your No No last visit? Any new allergies or adverse reactions No No Had a fall/change in ADL's that may No No increase risk of falls Signs or symptoms of abuse and/or No No neglect since last visit Have you been in the hospital since your No No last visit? Has dressing in place as prescribed Yes Yes Has compression in place as prescribed Yes Yes Has offloadiing in place as prescribed N/A N/A Experienced any changes in pain level or No No management Left Footwear Regular Shoe Regular Shoe Right Footwear Regular Shoe Regular Shoe Pain Scale: 0-10 Numeric Is Patient Pain Free? Yes Yes - Nurse 1 - General Ulcer Measurement Start: 04/09/25 08:15 Freq: Status: Active Protocol: Activity Type Activity Date Activity User E-sign Co-sign Detail Recorded Client Recorded Date Recorded By Document 04/09/25 08:15 RB [id number] 04/09/25 08:17 RB Document 04/16/25 08:49 KW [id number] 04/16/25 08:53 KW 04/09/25 04/16/25 08:15 08:49 Wound Center Nurse 1 #18 Right Medial Ankle -Combined with other wound No -Current Size (cm) - Length 1.1 2 -Current Size (cm) - Width 0.4 1.3 -Current Size (cm) - Depth 0.2 0.2 -Total Square Cm 0.44 2.6 -Tunneling No -Undermining/Tunneling No -Circular Undermining No -Exudate Amt Medium Medium -Exudate Type Serosanguineous Serosanguineous -Wound Margin Thickened & Thickened Rolled Under -Granulation Amt Medium (34-66%) Large (67-100%) -Granulation Quality [place] Red -Slough/Fibrin Yes -Necrosis Amt Small (1-33%) -Necrotic Tissue Type Adherent Slough -Structure Exposed N/A -Texture (Ara-wound Skin Appearance) Scarring Assessed -Moisture (Ara-wound Skin Appearance) Dry/Scaly Assessed, Maceration -Color (Ara-wound Skin Appearance) Assessed Assessed -Temperature (Ara-wound Skin No Abnormality No Abnormality Appearance) (Pt Warm) (Pt Warm) -Tenderness on Palpation (Ara-wound No No Skin Appearance) -Ulcer Cleansing Wound Cleanser Soap and Water -Foul Odor after Cleansing No No -Anesthetic Used 5% Lidocaine 5% Lidocaine Gel Gel #10 Left Medial Ankle -Combined with other wound No -Current Size (cm) - Length 4 2.6 -Current Size (cm) - Width 1 1 -Current Size (cm) - Depth 0.3 0.3 -Total Square Cm 4 2.6 -Tunneling No -Undermining/Tunneling No -Circular Undermining No -Exudate Amt Medium Medium -Exudate Type Serosanguineous Serosanguineous -Wound Margin Thickened & Thickened Rolled Under -Granulation Amt Medium (34-66%) Large (67-100%) -Granulation Quality [place] Red -Slough/Fibrin Yes -Necrosis Amt Medium (34-66%) -Necrotic Tissue Type Adherent Slough -Structure Exposed N/A -Texture (Ara-wound Skin Appearance) Scarring Assessed -Moisture (Ara-wound Skin Appearance) Dry/Scaly Assessed, Maceration -Color (Ara-wound Skin Appearance) Assessed Assessed -Temperature (Ara-wound Skin No Abnormality No Abnormality Appearance) (Pt Warm) (Pt Warm) -Tenderness on Palpation (Ara-wound No No Skin Appearance) -Ulcer Cleansing Wound Cleanser Soap and Water -Foul Odor after Cleansing No No -Anesthetic Used 5% Lidocaine 5% Lidocaine Gel Gel Lower Limb Edema Present Yes Right Calf (cm) 37.5 Right Ankle (cm) 24.5 Left Ankle (cm) 37.5 Left Foot (cm) 22.5 WC - Nurse 2 - General Ulcer CM Notes Start: 04/09/25 08:15 Freq: Status: Active Protocol: Activity Type Activity Date Activity User E-sign Co-sign Detail Recorded Client Recorded Date Recorded By Document 04/09/25 08:22 [id number] 04/09/25 08:32 GM Document 04/16/25 09:32 [id number] 04/16/25 09:40 GM 04/09/25 04/16/25 08:22 09:32 Wound Center Nurse 2 #18 Right Medial Ankle -Time 08:23 09:32 -Correct Patient Yes Yes -Correct Side, Site, Position Yes Yes -Correct Procedure Yes Yes -Procedure Performed Yes Yes -Type of Procedure Debridement Debridement -Clinical Debridement Subcutaneous Subcutaneous -Tissue Removed Subcutaneous Subcutaneous -Post Debridement (cm) - Length 1.3 2.6 -Post Debridement (cm) - Width 0.5 1.6 -Post Debridement (cm) - Depth 0.1 0.1 -Total Square (Post) (cm) 0.65 4.16 -Area of Debridement (cm) - Length 1.3 2.6 -Area of Debridement (cm) - Width 0.5 1.6 -Total Square (Area) (cm) 0.65 4.16 -Tunneling No No -Undermining/Tunneling No No -Circular Undermining No No -Wound/Ulcer Outcome Not Healed Not Healed -Ulcer Cleansing Rinsed/ Rinsed/ Irrigated with Irrigated with Saline Saline -Foul Odor after Cleansing No No -Bioengineered Tissue No No -Bleeding Controlled with Pressure Pressure -Treatment Response Procedure Procedure Tolerated Well Tolerated Well -Offloading No No -Debridement - Subq, 1st 20sq cm No No #10 Left Medial Ankle -Time 08:23 09:35 -Correct Patient Yes Yes -Correct Side, Site, Position Yes Yes -Correct Procedure Yes Yes -Procedure Performed Yes Yes -Type of Procedure Debridement Debridement -Clinical Debridement Subcutaneous Subcutaneous -Tissue Removed Subcutaneous Subcutaneous -Post Debridement (cm) - Length 3.0 3.5 -Post Debridement (cm) - Width 1.0 1.3 -Post Debridement (cm) - Depth 0.3 0.3 -Total Square (Post) (cm) 3.00 4.55 -Area of Debridement (cm) - Length 3.0 3.5 -Area of Debridement (cm) - Width 1.0 1.3 -Total Square (Area) (cm) 3.00 4.55 -Tunneling No No -Undermining/Tunneling No No -Circular Undermining No No -Wound/Ulcer Outcome Not Healed Not Healed -Ulcer Cleansing Rinsed/ Rinsed/ Irrigated with Irrigated with Saline Saline -Foul Odor after Cleansing No No -Bioengineered Tissue No No -Bleeding Controlled with Pressure Pressure -Treatment Response Procedure Procedure Tolerated Well Tolerated Well -Offloading No -Debridement - Subq, 1st 20sq cm Yes Yes Pain Scale: 0-10 Numeric Is Patient Pain Free? Yes Yes - Nurse 3 - General Ulcer D/C NN Start: 04/09/25 08:15 Freq: Status: Active Protocol: Activity Type Activity Date Activity User E-sign Co-sign Detail Recorded Client Recorded Date Recorded By Document 04/09/25 08:38 [id number] 04/09/25 08:38 Document 04/16/25 09:59 OK [id number] 04/16/25 10:03 OK 04/09/25 04/16/25 08:38 09:59 Wound Care Center Nurse 3 #18 Right Medial Ankle -Ulcer Cleansing Not Cleansed -Foul Odor after Cleansing No No -Negative Pressure Wound Therapy N/A -Other Dressing DAKINKS AND ABD -Primary Dressing Covered/Secured with Secured with Secured with Tape,Other Tape -Other Covering abd #10 Left Medial Ankle -Ulcer Cleansing Not Cleansed -Foul Odor after Cleansing No -Other Dressing DAKINS AND ABD -Primary Dressing Covered/Secured with Secured with Tape -Other Covering 1/2 abd -Wound Comment(s) PT HAS OWN SUPPLIES. PT REFUSED THE WOUND ORDER SUPPLIES BECAUSE HE IS GOING HOME TO SHOWER THAN HE WILL PLACE HIS SUPRA-ABSORB ON AND AQUACEL EXTRA. Pain Scale: 0-10 Numeric Is Patient Pain Free? Yes Yes WC - Visit Discharge Discharge Condition Stable Stable Ambulatory Status Ambulatory Ambulatory Transportation Private Auto Private Auto Medication Reconcilliation completed & No provided to patient/care provider Clinical Summary of Care Provided Yes Additional Wound Wound debrided: Left medial ankle Type of Debridement: Excisional debridement Anesthesia Used: 5% Lidocaine Gel Depth: Down to and including healthy tissue and in the subcutaneous layer Percentage of wound debrided: 100 Instrument Used: 5mm curette Tissue Removed: Slough and devitalized tissue Severity: Fat Layer Exposed Amount of bleeding with debridement: Mild Bleeding Controlled with: Pressure Patient tolerated procedure: Patient tolerated procedure well Assessment/Plan Assessment/Plan (1) Ulcer of left lower extremity with fat layer exposed: CODE(S): L97.922 - Non-pressure chronic ulcer of unspecified part of left lower leg with fat layer exposed (2) PVD (peripheral vascular disease): CODE(S): I73.9 - Peripheral vascular disease, unspecified (3) Chronic venous insufficiency: CODE(S): I87.2 - Venous insufficiency (chronic) (peripheral) (4) Delayed wound healing: CODE(S): T14.8XXD - Other injury of unspecified body region, subsequent encounter (5) Ulcer of right lower extremity with fat layer exposed: CODE(S): L97.912 - Non-pressure chronic ulcer of unspecified part of rightlower leg with fat layer exposed PLAN: Plan Debridement done as documented above, procedure was well-tolerated. Status postrecent foam sclerotherapy however only right lower extremity was done. This morning, noted worsening of his right lower extremity ulcer. Increased drainagealso noted during change but otherwise, no concerns reported over the last week. Denies increased pain or foul smell. Left lower extremity procedure scheduled for the of next month. Periwound maceration noted on the left and erythemaon the right. Cultures taken from the right medial ankle ulcer. For now, continue 30 minutes Dakin's soak daily. Apply Bactroban, Aquacel extra to ulcers, cover with KerraMax care. Consistent use of compression, leg elevation and exercise as tolerated strongly recommended, he voiced understanding. Compliance with dressing changes also strongly recommended. Increased protein intake, protein supplements, zinc and vitamin D. Optimal diabetes control discussed, last A1C was 5.9. Also advised that he moisturize his skin consistently. His questions were answered, and he was advised to call with any further questions or concerns. Follow-up in 2 weeks per patient preference. This note was generated with Dragon dictation software. It may contain incorrectwords, spelling, and punctuation that were not noted in checking the note beforesigning. 04/16/25 1339 <Electronically signed by Alice Amaya MD> Cosigner Signature (if applicable): CC: ~ Signed [facility] Work Phone: [phone] Progress note [facility] [address] [place] [address] Progress Note - Wound Care 04/16/25 1333 MR#: [id number] Acct: [id number] Name: RUBEN ALLEN Jr. Rep #:[id number] 20 : 1965 59 From: Alice dickerson MD PCP: Dr. George Frausto MD Status :REG RCR Location: History of Present Illness Date of Service: 04/16/25 Chief Complaint: Bilateral lower extremity ulcers History of Wound: This is a 54-year-old male presents to wound healing center with a long-standing history of chronic venous insufficiency, chronic venous hypertension, lower extremity edema, lower extremity pain, and chronic left lower extremity ulcer. 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 He is currently wearing graduated compression stockings which are documented karla 20-30 mmHg compression and these are thigh high. He reports great compliance with use. Heis alsohad previous arterial work-up with no intervention recommended by letter, his vascular surgeon. He denies taking nutritional supplementation. [facility] dermat[facility] and had a biopsy of the ulcer site. He also was previously treated by infectious disease for various contaminations and infections. He is not antibiotics at this time nor does he have any redness or odor coming from the wound. He denies fever, chill, nausea, vomiting, loss of appetite. 05/18/22: Mr. Allen presents with a new right lower extremity ulceration. He states that this has been present for months and he has been trying to manage itat home without any significant improvement. Opened up months ago, no known precipitating factor. Has been applying wound dressings without any significantimprovement. He reports increased drainage. Denies significant pain. No chills, fever or feeling of unwell. 10/16/24: Mr. Allen presents with a new right lower extremity ulceration. He states that it started out as a very small area that was slipping and then in the last week, became rather extensive. He also reports a foul smell. Has noted increase lower extremity edema. He states that he has been wearing his compression (20 to 30 mmHg) consistently. No chills, fever or otherwise feelingof unwell. Also has a new area on his left lower medial leg. He states that hehas been applying same 1 products to these new areas. Progress of Wound: Worsening of his right lower extremity ulceration. Patient states that he notedit this morning whenhe took his dressing off. Increased drainage noted with dressing change but otherwise, no increasedpain or concerns prior to today. Scheduled for his left lower extremity procedure on the 14 of May. He statesthat he has been doing dressing changes as recommended. Objective Data Objective Data Vital Signs: Vital Signs Temp Pulse Resp BP Pulse Ox O2 Del Method 97.3 F L 104 H 18 162/82 H 99 Room Air 04/16/25 08:49 04/16/25 08:49 04/16/25 08:49 04/16/25 08:49 03/29/25 00:18 04/16/25 08:49 Oxygen Delivery Method Room Air Body Mass Index (BMI) 31.4 Charges/Coding Procedures Integumentary 111xxx-113xx: 75627 Lakeisha subq tissue 20 sq cm/< Physical Exam Const alert, oriented x3 and no apparent distress General Appearance: cooperative and comfortable HEENT normocephalic Head and Scalp: normal to inspection, normocephalic and atraumatic Eyes EOMs intact bilaterally Neck full ROM and supple General: normal visual inspection Resp normal respiratory effort Effort and Inspection: able to speak in complete sentences Extremity normal to inspection General Extremity: edema Skin General Skin Exam: dry skin Wounds: wounds noted size Size: See clinical note, bed granulating well, marginsmacerated, well defined and surrounding erythema, no odor, open and surrounding erythema Neuro oriented x3, CN's II-XII intact bilaterally, moves all extremities and no focal motor deficits Psych mental status grossly normal, thought process normal, cooperative and affect normal Debridement Note Debridement Note Wound debrided: Right medial ankle Type of Debridement: Excisional debridement Anesthesia Used: 5% Lidocaine Gel Depth: Down to and including healthy tissue and in the subcutaneous layer Percentage of wound debrided: 100 Instrument Used: 5mm curette Tissue Removed: Slough and devitalized tissue Severity: Fat Layer Exposed Amount of bleeding with debridement: Mild Bleeding Controlled with: Pressure Patient tolerated procedure: Patient tolerated procedure well Post-Debridement Measurements and Additional Note: Post-Debridement Measurements/Treatment - Nurse 1 - General Ulcer Assessment Start: 04/09/25 08:15 Freq: Status: Active Protocol: [employer] Activity Type Activity Date Activity User E-sign Co-sign Detail Recorded Client Recorded Date Recorded By Document 04/09/25 08:15 RB [id number] 04/09/25 08:17 RB Document 04/16/25 08:49 KW [id number] 04/16/25 08:53 KW 04/09/25 04/16/25 08:15 08:49 - Today's Visit Information Type of service Follow-up Visit Follow-up Visit (Physician/SUPERVISOR CHANNEL PROCESS (Physician/SUPERVISOR CHANNEL PROCESS ) ) Arrival Mode Ambulatory Ambulatory Transfer Assistance None Patient Identification Verified (Name & Yes Yes ) Patient Requires Transmission-Based No Precautions Height and Weight Body Mass Index (BMI) 31.4 31.4 BMI Classification Obese Obese Vital Signs Temperature (97.8 F-99.1 F) 97.3 F L 97.3 F L Temperature Source Temporal Temporal Pulse Rate (60-100) 78 104 H Pulse Location Monitor Monitor Respiratory Rate (12-18) 18 18 Respiratory rate source Observation Observation Oxygen Delivery Method Room Air Blood Pressure (90/60-120/80) 149/86 H 162/82 H Blood Pressure Mean (mm Hg) 107 108 Source Monitor Monitor Position Semi-Fowlers Semi-Fowlers Blood Pressure Location Left Arm Left Arm History Since Last Visit- (Skip if this is Patient's initial visit) Have you changed medications since your No No last visit? Any new allergies or adverse reactions No No Had a fall/change in ADL's that may No No increase risk of falls Signs or symptoms of abuse and/or No No neglect since last visit Have you been in the hospital since your No No last visit? Has dressing in place as prescribed Yes Yes Has compression in place as prescribed Yes Yes Has offloadiing in place as prescribed N/A N/A Experienced any changes in pain level or No No management Left Footwear Regular Shoe Regular Shoe Right Footwear Regular Shoe Regular Shoe Pain Scale: 0-10 Numeric Is Patient Pain Free? Yes Yes WC - Nurse 1 - General Ulcer Measurement Start: 04/09/25 08:15 Freq: Status: Active Protocol: Activity Type Activity Date Activity User E-sign Co-sign Detail Recorded Client Recorded Date Recorded By Document 04/09/25 08:15 RB [id number] 04/09/25 08:17 RB Document 04/16/25 08:49 KW [id number] 04/16/25 08:53 KW 04/09/25 04/16/25 08:15 08:49 Wound Center Nurse 1 #18 Right Medial Ankle -Combined with other wound No -Current Size (cm) - Length 1.1 2 -Current Size (cm) - Width 0.4 1.3 -Current Size (cm) - Depth 0.2 0.2 -Total Square Cm 0.44 2.6 -Tunneling No -Undermining/Tunneling No -Circular Undermining No -Exudate Amt Medium Medium -Exudate Type Serosanguineous Serosanguineous -Wound Margin Thickened & Thickened Rolled Under -Granulation Amt Medium (34-66%) Large (67-100%) -Granulation Quality [place] Red -Slough/Fibrin Yes -Necrosis Amt Small (1-33%) -Necrotic Tissue Type Adherent Slough -Structure Exposed N/A -Texture (Ara-wound Skin Appearance) Scarring Assessed -Moisture (Ara-wound Skin Appearance) Dry/Scaly Assessed, Maceration -Color (Ara-wound Skin Appearance) Assessed Assessed -Temperature (Ara-wound Skin No Abnormality No Abnormality Appearance) (Pt Warm) (Pt Warm) -Tenderness on Palpation (Ara-wound No No Skin Appearance) -Ulcer Cleansing Wound Cleanser Soap and Water -Foul Odor after Cleansing No No -Anesthetic Used 5% Lidocaine 5% Lidocaine Gel Gel #10 Left Medial Ankle -Combined with other wound No -Current Size (cm) - Length 4 2.6 -Current Size (cm) - Width 1 1 -Current Size (cm) - Depth 0.3 0.3 -Total Square Cm 4 2.6 -Tunneling No -Undermining/Tunneling No -Circular Undermining No -Exudate Amt Medium Medium -Exudate Type Serosanguineous Serosanguineous -Wound Margin Thickened & Thickened Rolled Under -Granulation Amt Medium (34-66%) Large (67-100%) -Granulation Quality [place] Red -Slough/Fibrin Yes -Necrosis Amt Medium (34-66%) -Necrotic Tissue Type Adherent Slough -Structure Exposed N/A -Texture (Ara-wound Skin Appearance) Scarring Assessed -Moisture (Ara-wound Skin Appearance) Dry/Scaly Assessed, Maceration -Color (Ara-wound Skin Appearance) Assessed Assessed -Temperature (Ara-wound Skin No Abnormality No Abnormality Appearance) (Pt Warm) (Pt Warm) -Tenderness on Palpation (Ara-wound No No Skin Appearance) -Ulcer Cleansing Wound Cleanser Soap and Water -Foul Odor after Cleansing No No -Anesthetic Used 5% Lidocaine 5% Lidocaine Gel Gel Lower Limb Edema Present Yes Right Calf (cm) 37.5 Right Ankle (cm) 24.5 Left Ankle (cm) 37.5 Left Foot (cm) 22.5 WC - Nurse 2 - General Ulcer CM Notes Start: 04/09/25 08:15 Freq: Status: Active Protocol: Activity Type Activity Date Activity User E-sign Co-sign Detail Recorded Client Recorded Date Recorded By Document 04/09/25 08:22 [id number] 04/09/25 08:32 Document 04/16/25 09:32 [id number] 04/16/25 09:40 04/09/25 04/16/25 08:22 09:32 Wound Center Nurse 2 #18 Right Medial Ankle -Time 08:23 09:32 -Correct Patient Yes Yes -Correct Side, Site, Position Yes Yes -Correct Procedure Yes Yes -Procedure Performed Yes Yes -Type of Procedure Debridement Debridement -Clinical Debridement Subcutaneous Subcutaneous -Tissue Removed Subcutaneous Subcutaneous -Post Debridement (cm) - Length 1.3 2.6 -Post Debridement (cm) - Width 0.5 1.6 -Post Debridement (cm) - Depth 0.1 0.1 -Total Square (Post) (cm) 0.65 4.16 -Area of Debridement (cm) - Length 1.3 2.6 -Area of Debridement (cm) - Width 0.5 1.6 -Total Square (Area) (cm) 0.65 4.16 -Tunneling No No -Undermining/Tunneling No No -Circular Undermining No No -Wound/Ulcer Outcome Not Healed Not Healed -Ulcer Cleansing Rinsed/ Rinsed/ Irrigated with Irrigated with Saline Saline -Foul Odor after Cleansing No No -Bioengineered Tissue No No -Bleeding Controlled with Pressure Pressure -Treatment Response Procedure Procedure Tolerated Well Tolerated Well -Offloading No No -Debridement - Subq, 1st 20sq cm No No #10 Left Medial Ankle -Time 08:23 09:35 -Correct Patient Yes Yes -Correct Side, Site, Position Yes Yes -Correct Procedure Yes Yes -Procedure Performed Yes Yes -Type of Procedure Debridement Debridement -Clinical Debridement Subcutaneous Subcutaneous -Tissue Removed Subcutaneous Subcutaneous -Post Debridement (cm) - Length 3.0 3.5 -Post Debridement (cm) - Width 1.0 1.3 -Post Debridement (cm) - Depth 0.3 0.3 -Total Square (Post) (cm) 3.00 4.55 -Area of Debridement (cm) - Length 3.0 3.5 -Area of Debridement (cm) - Width 1.0 1.3 -Total Square (Area) (cm) 3.00 4.55 -Tunneling No No -Undermining/Tunneling No No -Circular Undermining No No -Wound/Ulcer Outcome Not Healed Not Healed -Ulcer Cleansing Rinsed/ Rinsed/ Irrigated with Irrigated with Saline Saline -Foul Odor after Cleansing No No -Bioengineered Tissue No No -Bleeding Controlled with Pressure Pressure -Treatment Response Procedure Procedure Tolerated Well Tolerated Well -Offloading No -Debridement - Subq, 1st 20sq cm Yes Yes Pain Scale: 0-10 Numeric Is Patient Pain Free? Yes Yes - Nurse 3 - General Ulcer D/C NN Start: 04/09/25 08:15 Freq: Status: Active Protocol: Activity Type Activity Date Activity User E-sign Co-sign Detail Recorded Client Recorded Date Recorded By Document 04/09/25 08:38 [id number] 04/09/25 08:38 Document 04/16/25 09:59 OK [id number] 04/16/25 10:03 OK 04/09/25 04/16/25 08:38 09:59 Wound Care Center Nurse 3 #18 Right Medial Ankle -Ulcer Cleansing Not Cleansed -Foul Odor after Cleansing No No -Negative Pressure Wound Therapy N/A -Other Dressing DAKINKS AND ABD -Primary Dressing Covered/Secured with Secured with Secured with Tape,Other Tape -Other Covering abd #10 Left Medial Ankle -Ulcer Cleansing Not Cleansed -Foul Odor after Cleansing No -Other Dressing DAKINS AND ABD -Primary Dressing Covered/Secured with Secured with Tape -Other Covering 1/2 abd -Wound Comment(s) PT HAS OWN SUPPLIES. PT REFUSED THE WOUND ORDER SUPPLIES BECAUSE HE IS GOING HOME TO SHOWER THAN HE WILL PLACE HIS SUPRA-ABSORB ON AND AQUACEL EXTRA. Pain Scale: 0-10 Numeric Is Patient Pain Free? Yes Yes WC - Visit Discharge Discharge Condition Stable Stable Ambulatory Status Ambulatory Ambulatory Transportation Private Auto Private Auto Medication Reconcilliation completed & No provided to patient/care provider Clinical Summary of Care Provided Yes Additional Wound Wound debrided: Left medial ankle Type of Debridement: Excisional debridement Anesthesia Used: 5% Lidocaine Gel Depth: Down to and including healthy tissue and in the subcutaneous layer Percentage of wound debrided: 100 Instrument Used: 5mm curette Tissue Removed: Slough and devitalized tissue Severity: Fat Layer Exposed Amount of bleeding with debridement: Mild Bleeding Controlled with: Pressure Patient tolerated procedure: Patient tolerated procedure well Assessment/Plan Assessment/Plan (1) Ulcer of left lower extremity with fat layer exposed: CODE(S): L97.922 - Non-pressure chronic ulcer of unspecified part of left lower leg with fat layer exposed (2) PVD (peripheral vascular disease): CODE(S): I73.9 - Peripheral vascular disease, unspecified (3) Chronic venous insufficiency: CODE(S): I87.2 - Venous insufficiency (chronic) (peripheral) (4) Delayed wound healing: CODE(S): T14.8XXD - Other injury of unspecified body region, subsequent encounter (5) Ulcer of right lower extremity with fat layer exposed: CODE(S): L97.912 - Non-pressure chronic ulcer of unspecified part of rightlower leg with fat layer exposed PLAN: Plan Debridement done as documented above, procedure was well-tolerated. Status postrecent foam sclerotherapy however only right lower extremity was done. This morning, noted worsening of his right lower extremity ulcer. Increased drainagealso noted during change but otherwise, no concerns reported overthe last week. Denies increased pain or foul smell. Left lower extremity procedure scheduled for the of next month. Periwound maceration noted on the left and erythemaon the right. Cultures taken from the right medial ankle ulcer. For now, continue 30 minutes Dakin's soak daily. Apply Bactroban, Aquacel extra to ulcers, cover with KerraMax care. Consistent use of compression, leg elevation and exercise as tolerated strongly recommended, he voiced understanding. Compliance with dressing changes also strongly recommended. Increased protein intake, protein supplements, zinc and vitamin D. Optimal diabetes control discussed, last A1C was 5.9. Also advised that he moisturize his skin consist ently. His questions were answered, and he was advised to call with any further questions or concerns. Follow-up in 2 weeks per patient preference. This note was generated with [employer] dictation software. It may contain incorrectwords, spelling, and punctuation that were not noted in checking the note beforesigning. 04/16/25 1339 Cosigner Signature (if applicable): CC: ~ Signed [facility]06-12-2025 Progress note Author Alice Amaya [facility] Note Date/Time April 09, 2025 8:45 am [facility] [address] [place] [id number] Progress Note - Wound Care 04/09/25 0837 MR#: [id number] Acct: [id number] Name: RUBEN ALLEN Eunice Cornejo. Rep #:[id number] 01 : 1965 59 From: Alice dickerson MD PCP: Dr. George Frausto MD Status :[facility] Location: History of Present Illness Date of Service: 04/09/25 Chief Complaint: Bilateral lower extremity ulcers History of Wound: This is a 54-year-old male presents to wound healing center with a long-standing history of chronic venous insufficiency, chronic venous hypertension, lower extremity edema, lower extremity pain, and chronic left lower extremity ulcer. 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 He is currently wearing graduated compression stockings which are documented to be 20-30 mmHg compression and these are thigh high. He reports great compliance with use. Heis also had previous arterial work-up with no intervention recommended by letter, his vascular surgeon. He denies taking nutritional supplementation. [facility] dermat[facility] and had a biopsy of the ulcer site. He also was previously treated by infectious disease for various contaminations and infections. He is not antibiotics at this time nor does he have any redness or odor coming from the wound. He denies fever, chill, nausea, vomiting, loss of appetite. 05/18/22: Mr. Allen presents with a new right lower extremity ulceration. He states that this has been present for months and he has been trying to manage itat home without any significant improvement. Opened up months ago, no known precipitating factor. Has been applying wound dressings without any significantimprovement. He reports increased drainage. Denies significant pain. No chills, fever or feeling of unwell. 10/16/24: Mr. Allen presents with a new right lower extremity ulceration. He states that it started out as a very small area that was slipping and then in the last week, became rather extensive. He also reports a foul smell. Has noted increase lower extremity edema. He states that he has been wearing his compression (20 to 30 mmHg) consistently. No chills, fever or otherwise feelingof unwell. Also has a new area on his left lower medial leg. He states that hehas been applying same 1 products to these new areas. Progress of Wound: Had a right lower extremity foam sclerotherapy on the 25 of March. Procedure was uneventful. He thinks his right lower extremity ulcer has shown some worsening. No increased drainage or pain. He states that he has been doing dressing changes as recommended. Objective Data Objective Data Vital Signs: Vital Signs Temp Pulse Resp BP Pulse Ox 97.3 F L 78 18 149/86 H 99 04/09/25 08:15 04/09/25 08:15 04/09/25 08:15 04/09/25 08:15 03/29/25 00:18 Body Mass Index (BMI) 31.4 Charges/Coding Procedures Integumentary 111xxx-113xx: 22927 Lakeisha subq tissue 20 sq cm/< Physical Exam Const alert, oriented x3 and no apparent distress General Appearance: cooperative and comfortable HEENT normocephalic Head and Scalp: normal to inspection, normocephalic and atraumatic Eyes EOMs intact bilaterally Neck full ROM and supple General: normal visual inspection Resp normal respiratory effort Effort and Inspection: able to speak in complete sentences Extremity normal to inspection General Extremity: edema Skin General Skin Exam: dry skin Wounds: wounds noted size Size: See clinical note, bed granulating well, marginswell defined, no odor and open Neuro oriented x3, CN's II-XII intact bilaterally, moves all extremities and no focal motor deficits Psych mental status grossly normal, thought process normal, cooperative and affect normal Debridement Note Debridement Note Wound debrided: Right medial ankle/lower extremity Type of Debridement: Excisional debridement Anesthesia Used: 5% Lidocaine Gel Depth: Down to and including healthy tissue and in the subcutaneous layer Percentage of wound debrided: 100 Instrument Used: 3mm curette Tissue Removed: Slough and devitalized tissue Severity: Fat Layer Exposed Amount of bleeding with debridement: Mild Bleeding Controlled with: Pressure Patient tolerated procedure: Patient tolerated procedure well Post-Debridement Measurements and Additional Note: Post-Debridement Measurements/Treatment KIMBERLY - Nurse 1 - General Ulcer Assessment Start: 04/09/25 08:15 Freq: Status: Active Protocol: SHANTA Activity Type Activity Date Activity User E-sign Co-sign Detail Recorded Client Recorded Date Recorded By Document 04/09/25 08:15 TRIPP [id number] 04/09/25 08:17 TRIPP 04/09/25 08:15 - Today's Visit Information Type of service Follow-up Visit (Physician/SUPERVISOR CHANNEL PROCESS ) Arrival Mode Ambulatory Transfer Assistance None Patient Identification Verified (Name & Yes ) Patient Requires Transmission-Based No Precautions Height and Weight Body Mass Index (BMI) 31.4 BMI Classification Obese Vital Signs Temperature (97.8 F-99.1 F) 97.3 F L Temperature Source Temporal Pulse Rate (60-100) 78 Pulse Location Monitor Respiratory Rate (12-18) 18 Respiratory rate source Observation Blood Pressure (90/60-120/80) 149/86 H Blood Pressure Mean (mm Hg) 107 Source Monitor Position Semi-Fowlers Blood Pressure Location Left Arm History Since Last Visit- (Skip if this is Patient's initial visit) Have you changed medications since your No last visit? Any new allergies or adverse reactions No Had a fall/change in ADL's that may No increase risk of falls Signs or symptoms of abuse and/or No neglect since last visit Have you been in the hospital since your No last visit? Has dressing in place as prescribed Yes Has compression in place as prescribed Yes Has offloadiing in place as prescribed N/A Experienced any changes in pain level or No management Left Footwear Regular Shoe Right Footwear Regular Shoe Pain Scale: 0-10 Numeric Is Patient Pain Free? Yes WC - Nurse 1 - General Ulcer Measurement Start: 04/09/25 08:15 Freq: Status: Active Protocol: Activity Type Activity Date Activity User E-sign Co-sign Detail Recorded Client Recorded Date Recorded By Document 04/09/25 08:15 RB [id number] 04/09/25 08:17 RB 04/09/25 08:15 Wound Center Nurse 1 #18 Right Medial Ankle -Combined with other wound No -Current Size (cm) - Length 1.1 -Current Size (cm) - Width 0.4 -Current Size (cm) - Depth 0.2 -Total Square Cm 0.44 -Tunneling No -Undermining/Tunneling No -Circular Undermining No -Exudate Amt Medium -Exudate Type Serosanguineous -Wound Margin Thickened & Rolled Under -Granulation Amt Medium (34-66%) -Granulation Quality [place] -Slough/Fibrin Yes -Necrosis Amt Small (1-33%) -Necrotic Tissue Type Adherent Slough -Structure Exposed N/A -Texture (Ara-wound Skin Appearance) Scarring -Moisture (Ara-wound Skin Appearance) Dry/Scaly -Color (Ara-wound Skin Appearance) Assessed -Temperature (Ara-wound Skin No Abnormality Appearance) (Pt Warm) -Tenderness on Palpation (Ara-wound No Skin Appearance) -Ulcer Cleansing Wound Cleanser -Foul Odor after Cleansing No -Anesthetic Used 5% Lidocaine Gel #10 Left Medial Ankle -Combined with other wound No -Current Size (cm) - Length 4 -Current Size (cm) - Width 1 -Current Size (cm) - Depth 0.3 -Total Square Cm 4 -Tunneling No -Undermining/Tunneling No -Circular Undermining No -Exudate Amt Medium -Exudate Type Serosanguineous -Wound Margin Thickened & Rolled Under -Granulation Amt Medium (34-66%) -Granulation Quality [place] -Slough/Fibrin Yes -Necrosis Amt Medium (34-66%) -Necrotic Tissue Type Adherent Slough -Structure Exposed N/A -Texture (Ara-wound Skin Appearance) Scarring -Moisture (Ara-wound Skin Appearance) Dry/Scaly -Color (Ara-wound Skin Appearance) Assessed -Temperature (Ara-wound Skin No Abnormality Appearance) (Pt Warm) -Tenderness on Palpation (Ara-wound No Skin Appearance) -Ulcer Cleansing Wound Cleanser -Foul Odor after Cleansing No -Anesthetic Used 5% Lidocaine Gel Lower Limb Edema Present Yes Right Calf (cm) 37.5 Right Ankle (cm) 24.5 Left Ankle (cm) 37.5 Left Foot (cm) 22.5 WC - Nurse 2 - General Ulcer CM Notes Start: 04/09/25 08:15 Freq: Status: Active Protocol: Activity Type Activity Date Activity User E-sign Co-sign Detail Recorded Client Recorded Date Recorded By Document 04/09/25 08:22 [id number] 04/09/25 08:32 04/09/25 08:22 Wound Center Nurse 2 #18 Right Medial Ankle -Time 08:23 -Correct Patient Yes -Correct Side, Site, Position Yes -Correct Procedure Yes -Procedure Performed Yes -Type of Procedure Debridement -Clinical Debridement Subcutaneous -Tissue Removed Subcutaneous -Post Debridement (cm) - Length 1.3 -Post Debridement (cm) - Width 0.5 -Post Debridement (cm) - Depth 0.1 -Total Square (Post) (cm) 0.65 -Area of Debridement (cm) - Length 1.3 -Area of Debridement (cm) - Width 0.5 -Total Square (Area) (cm) 0.65 -Tunneling No -Undermining/Tunneling No -Circular Undermining No -Wound/Ulcer Outcome Not Healed -Ulcer Cleansing Rinsed/ Irrigated with Saline -Foul Odor after Cleansing No -Bioengineered Tissue No -Bleeding Controlled with Pressure -Treatment Response Procedure Tolerated Well -Offloading No -Debridement - Subq, 1st 20sq cm No #10 Left Medial Ankle -Time 08:23 -Correct Patient Yes -Correct Side, Site, Position Yes -Correct Procedure Yes -Procedure Performed Yes -Type of Procedure Debridement -Clinical Debridement Subcutaneous -Tissue Removed Subcutaneous -Post Debridement (cm) - Length 3.0 -Post Debridement (cm) - Width 1.0 -Post Debridement (cm) - Depth 0.3 -Total Square (Post) (cm) 3.00 -Area of Debridement (cm) - Length 3.0 -Area of Debridement (cm) - Width 1.0 -Total Square (Area) (cm) 3.00 -Tunneling No -Undermining/Tunneling No -Circular Undermining No -Wound/Ulcer Outcome Not Healed -Ulcer Cleansing Rinsed/ Irrigated with Saline -Foul Odor after Cleansing No -Bioengineered Tissue No -Bleeding Controlled with Pressure -Treatment Response Procedure Tolerated Well -Offloading No -Debridement - Subq, 1st 20sq cm Yes Pain Scale: 0-10 Numeric Is Patient Pain Free? Yes Additional Wound Wound debrided: Left medial ankle/lower extremity Type of Debridement: Excisional debridement Anesthesia Used: 5% Lidocaine Gel Depth: Down to and including healthy tissue and in the subcutaneous layer Percentage of wound debrided: 100 Instrument Used: 5mm curette Tissue Removed: Slough and devitalized tissue Severity: Fat Layer Exposed Amount of bleeding with debridement: Mild Bleeding Controlled with: Pressure Patient tolerated procedure: Patient tolerated procedure well Assessment/Plan Assessment/Plan (1) Ulcer of left lower extremity with fat layer exposed: CODE(S): L97.922 - Non-pressure chronic ulcer of unspecified part of left lower leg with fat layer exposed (2) PVD (peripheral vascular disease): CODE(S): I73.9 - Peripheral vascular disease, unspecified (3) Chronic venous insufficiency: CODE(S): I87.2 - Venous insufficiency (chronic) (peripheral) (4) Delayed wound healing: CODE(S): T14.8XXD - Other injury of unspecified body region, subsequent encounter (5) Ulcer of right lower extremity with fat layer exposed: CODE(S): L97.912 - Non-pressure chronic ulcer of unspecified part of rightlower leg with fat layer exposed PLAN: Plan Debridement done as documented above, procedure was well-tolerated. Status postrecent foam sclerotherapy however only right lower extremity was done. Has another appointment on Sunday and plan is to schedule the left. Right lower extremity ulcer is stable, left with some improvement. Continue 30 minutes Dakin's soak daily. Apply Bactroban, Aquacel extra to ulcers, Adaptic to surrounding skin and cover with KerraMax care. Consistent use of compression, leg elevation and exercise as tolerated strongly recommended, he voiced understanding. Compliance with dressing changes also strongly recommended. Increased protein intake, protein supplements, zinc and vitamin D. Optimal diabetes control discussed, last A1C was 5.9. Also advised that he moisturize his skin consistently. His questions were answered, and he was advised to call with any further questions or concerns. Follow-up in 1 week. This note was generated with IntelliDOT dictation software. It may contain incorrectwords, spelling, and punctuation that were not noted in checking the note beforesigning. 04/09/25 0845 <Electronically signed by Alice Amaya MD> Cosigner Signature (if applicable): CC: ~ Signed [facility] Work Phone: [phone]) 635-828206-12-2025 Progress note [facility] [address] [place] [address] Progress Note - Wound Care 04/09/25 0837 MR#: [id number] Acct: [id number] Name: RUBEN ALLEN Jr. Rep #:[id number] : 1965 59 From: Alice dickerson MD PCP: Dr. George Frausto MD Status :REG RCR Location: History of Present Illness Date of Service: 04/09/25 Chief Complaint: Bilateral lower extremity ulcers History of Wound: This is a 54-year-old male presents to wound healing center with a long-standing history of chronic venous insufficiency, chronic venous hypertension, lower extremity edema, lower extremity pain, and chronic left lower extremity ulcer. 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 He is currently wearing graduated compression stockings which are documented karla 20-30 mmHg compression and these are thigh high. He reports great compliance with use. Heis alsohad previous arterial work-up with no intervention recommended by letter, his vascular surgeon. He denies taking nutritional supplementation. [place] [facility] and had a biopsy of the ulcer site. He also was previously treated by infectious disease for various contaminations and infections. He is not antibiotics at this time nor does he have any redness or odor coming from the wound. He denies fever, chill, nausea, vomiting, loss of appetite. 05/18/22: Mr. Allen presents with a new right lower extremity ulceration. He states that this has been present for months and he has been trying to manage itat home without any significant improvement. Opened up months ago, no known precipitating factor. Has been applying wound dressings without any significantimprovement. He reports increased drainage. Denies significant pain. No chills, fever or feeling of unwell. 10/16/24: Mr. Allen presents with a new right lower extremity ulceration. He states that it started out as a very small area that was slipping and then in the last week, became rather extensive. He also reports a foul smell. Has noted increase lower extremity edema. He states that he has been wearing his compression (20 to 30 mmHg) consistently. No chills, fever or otherwise feelingof unwell. Also has a new area on his left lower medial leg. He states that hehas been applying same 1 products to these new areas. Progress of Wound: Had a right lower extremity foam sclerotherapy on the 25 of March. Procedure was uneventful. He thinks his right lower extremity ulcer has shown some worsening. No increased drainage or pain. He states that he has been doing dressing changes as recommended. Objective Data Objective Data Vital Signs: Vital Signs Temp Pulse Resp BP Pulse Ox 97.3 F L 78 18 149/86 H 99 04/09/25 08:15 04/09/25 08:15 04/09/25 08:15 04/09/25 08:15 03/29/25 00:18 Body Mass Index (BMI) 31.4 Charges/Coding Procedures Integumentary 111xxx-113xx: 05723 Lakeisha subq tissue 20 sq cm/< Physical Exam Const alert, oriented x3 and no apparent distress General Appearance: cooperative and comfortable HEENT normocephalic Head and Scalp: normal to inspection, normocephalic and atraumatic Eyes EOMs intact bilaterally Neck full ROM and supple General: normal visual inspection Resp normal respiratory effort Effort and Inspection: able to speak in complete sentences Extremity normal to inspection General Extremity: edema Skin General Skin Exam: dry skin Wounds: wounds noted size Size: See clinical note, bed granulating well, marginswell defined, no odor and open Neuro oriented x3, CN's II-XII intact bilaterally, moves all extremities and no focal motor deficits Psych mental status grossly normal, thought process normal, cooperative and affect normal Debridement Note Debridement Note Wound debrided: Right medial ankle/lower extremity Type of Debridement: Excisional debridement Anesthesia Used: 5% Lidocaine Gel Depth: Down to and including healthy tissue and in the subcutaneous layer Percentage of wound debrided: 100 Instrument Used: 3mm curette Tissue Removed: Slough and devitalized tissue Severity: Fat Layer Exposed Amount of bleeding with debridement: Mild Bleeding Controlled with: Pressure Patient tolerated procedure: Patient tolerated procedure well Post-Debridement Measurements and Additional Note: Post-Debridement Measurements/Treatment KIMBERLY - Nurse 1 - General Ulcer Assessment Start: 04/09/25 08:15 Freq: Status: Active Protocol: SHANTA Activity Type Activity Date Activity User E-sign Co-sign Detail Recorded Client Recorded Date Recorded By Document 04/09/25 08:15 [email or web address] [id number] 04/09/25 08:17 RB 04/09/25 08:15 KIMBERLY - Today's Visit Information Type of service Follow-up Visit (Physician/SUPERVISOR CHANNEL PROCESS ) Arrival Mode Ambulatory Transfer Assistance None Patient Identification Verified (Name & Yes ) Patient Requires Transmission-Based No Precautions Height and Weight Body Mass Index (BMI) 31.4 BMI Classification Obese Vital Signs Temperature (97.8 F-99.1 F) 97.3 F L Temperature Source Temporal Pulse Rate (60-100) 78 Pulse Location Monitor Respiratory Rate (12-18) 18 Respiratory rate source Observation Blood Pressure (90/60-120/80) 149/86 H Blood Pressure Mean (mm Hg) 107 Source Monitor Position Semi-Fowlers Blood Pressure Location Left Arm History Since Last Visit- (Skip if this is Patient's initial visit) Have you changed medications since your No last visit? Any new allergies or adverse reactions No Had a fall/change in ADL's that may No increase risk of falls Signs or symptoms of abuse and/or No neglect since last visit Have you been in the hospital since your No last visit? Has dressing in place as prescribed Yes Has compression in place as prescribed Yes Has offloadiing in place as prescribed N/A Experienced any changes in pain level or No management Left Footwear Regular Shoe Right Footwear Regular Shoe Pain Scale: 0-10 Numeric Is Patient Pain Free? Yes KIMBERLY [place] Nurse 1 - General Ulcer Measurement Start: 04/09/25 08:15 Freq: Status: Active Protocol: Activity Type Activity Date Activity User E-sign Co-sign Detail Recorded Client Recorded Date Recorded By Document 04/09/25 08:15 RB [id number] 04/09/25 08:17 RB 04/09/25 08:15 Wound Center Nurse 1 #18 Right Medial Ankle -Combined with other wound No -Current Size (cm) - Length 1.1 -Current Size (cm) - Width 0.4 -Current Size (cm) - Depth 0.2 -Total Square Cm 0.44 -Tunneling No -Undermining/Tunneling No -Circular Undermining No -Exudate Amt Medium -Exudate Type Serosanguineous -Wound Margin Thickened & Rolled Under -Granulation Amt Medium (34-66%) -Granulation Quality [place] -Slough/Fibrin Yes -Necrosis Amt Small (1-33%) -Necrotic Tissue Type Adherent Slough -Structure Exposed N/A -Texture (Ara-wound Skin Appearance) Scarring -Moisture (Ara-wound Skin Appearance) Dry/Scaly -Color (Ara-wound Skin Appearance) Assessed -Temperature (Ara-wound Skin No Abnormality Appearance) (Pt Warm) -Tenderness on Palpation (Ara-wound No Skin Appearance) -Ulcer Cleansing Wound Cleanser -Foul Odor after Cleansing No -Anesthetic Used 5% Lidocaine Gel #10 Left Medial Ankle -Combined with other wound No -Current Size (cm) - Length 4 -Current Size (cm) - Width 1 -Current Size (cm) - Depth 0.3 -Total Square Cm 4 -Tunneling No -Undermining/Tunneling No -Circular Undermining No -Exudate Amt Medium -Exudate Type Serosanguineous -Wound Margin Thickened & Rolled Under -Granulation Amt Medium (34-66%) -Granulation Quality [place] -Slough/Fibrin Yes -Necrosis Amt Medium (34-66%) -Necrotic Tissue Type Adherent Slough -Structure Exposed N/A -Texture (Ara-wound Skin Appearance) Scarring -Moisture (Ara-wound Skin Appearance) Dry/Scaly -Color (Ara-wound Skin Appearance) Assessed -Temperature (Ara-wound Skin No Abnormality Appearance) (Pt Warm) -Tenderness on Palpation (Ara-wound No Skin Appearance) -Ulcer Cleansing Wound Cleanser -Foul Odor after Cleansing No -Anesthetic Used 5% Lidocaine Gel Lower Limb Edema Present Yes Right Calf (cm) 37.5 Right Ankle (cm) 24.5 Left Ankle (cm) 37.5 Left Foot (cm) 22.5 WC - Nurse 2 - General Ulcer CM Notes Start: 04/09/25 08:15 Freq: Status: Active Protocol: Activity Type Activity Date Activity User E-sign Co-sign Detail Recorded Client Recorded Date Recorded By Document 04/09/25 08:22 [id number] 04/09/25 08:32 04/09/25 08:22 Wound Center Nurse 2 #18 Right Medial Ankle -Time 08:23 -Correct Patient Yes -Correct Side, Site, Position Yes -Correct Procedure Yes -Procedure Performed Yes -Type of Procedure Debridement -Clinical Debridement Subcutaneous -Tissue Removed Subcutaneous -Post Debridement (cm) - Length 1.3 -Post Debridement (cm) - Width 0.5 -Post Debridement (cm) - Depth 0.1 -Total Square (Post) (cm) 0.65 -Area of Debridement (cm) - Length 1.3 -Area of Debridement (cm) - Width 0.5 -Total Square (Area) (cm) 0.65 -Tunneling No -Undermining/Tunneling No -Circular Undermining No -Wound/Ulcer Outcome Not Healed -Ulcer Cleansing Rinsed/ Irrigated with Saline -Foul Odor after Cleansing No -Bioengineered Tissue No -Bleeding Controlled with Pressure -Treatment Response Procedure Tolerated Well -Offloading No -Debridement - Subq, 1st 20sq cm No #10 Left Medial Ankle -Time 08:23 -Correct Patient Yes -Correct Side, Site, Position Yes -Correct Procedure Yes -Procedure Performed Yes -Type of Procedure Debridement -Clinical Debridement Subcutaneous -Tissue Removed Subcutaneous -Post Debridement (cm) - Length 3.0 -Post Debridement (cm) - Width 1.0 -Post Debridement (cm) - Depth 0.3 -Total Square (Post) (cm) 3.00 -Area of Debridement (cm) - Length 3.0 -Area of Debridement (cm) - Width 1.0 -Total Square (Area) (cm) 3.00 -Tunneling No -Undermining/Tunneling No -Circular Undermining No -Wound/Ulcer Outcome Not Healed -Ulcer Cleansing Rinsed/ Irrigated with Saline -Foul Odor after Cleansing No -Bioengineered Tissue No -Bleeding Controlled with Pressure -Treatment Response Procedure Tolerated Well -Offloading No -Debridement - Subq, 1st 20sq cm Yes Pain Scale: 0-10 Numeric Is Patient Pain Free? Yes Additional Wound Wound debrided: Left medial ankle/lower extremity Type of Debridement: Excisional debridement Anesthesia Used: 5% Lidocaine Gel Depth: Down to and including healthy tissue and in the subcutaneous layer Percentage of wound debrided: 100 Instrument Used: 5mm curette Tissue Removed: Slough and devitalized tissue Severity: Fat Layer Exposed Amount of bleeding with debridement: Mild Bleeding Controlled with: Pressure Patient tolerated procedure: Patient tolerated procedure well Assessment/Plan Assessment/Plan (1) Ulcer of left lower extremity with fat layer exposed: CODE(S): L97.922 - Non-pressure chronic ulcer of unspecified part of left lower leg with fat layer exposed (2) PVD (peripheral vascular disease): CODE(S): I73.9 - Peripheral vascular disease, unspecified (3) Chronic venous insufficiency: CODE(S): I87.2 - Venous insufficiency (chronic) (peripheral) (4) Delayed wound healing: CODE(S): T14.8XXD - Other injury of unspecified body region, subsequent encounter (5) Ulcer of right lower extremity with fat layer exposed: CODE(S): L97.912 - Non-pressure chronic ulcer of unspecified part of rightlower leg with fat layer exposed PLAN: Plan Debridement done as documented above, procedure was well-tolerated. Status postrecent foam sclerotherapy however only right lower extremity was done. Has another appointment on Sunday and plan is toschedule the left. Right lower extremity ulcer is stable, left with some improvement. Continue 30 minutes Dakin's soak daily. Apply Bactroban, Aquacel extra to ulcers, Adaptic to surrounding skin andcover with KerraMax care. Consistent use of compression, leg elevation and exercise as tolerated strongly recommended, he voiced understanding. Compliance with dressing changes also strongly recommended. Increased protein intake, protein supplements, zinc and vitamin D. Optimal diabetes control discussed, last A1C was 5.9. Also advised that he moisturize his skin consistently. His questions were answered, and he was advised to call with any further questions or concerns. Follow-up in 1 week. This note was generated with RadioFrameation software. It may contain incorrectwords, spelling, and punctuation that were not noted in checking the note beforesigning. 04/09/25 0845 Cosigner Signature (if applicable): CC: ~ Signed [facility]05-28-2025 History and physical note Author Christian Doty [facility] Note Date/Time March 25, 2025 9:19a m [facility] Medical Records Department [address] [place] [address] History & Physical Exam 03/25/25914 MR#: [id number] Acct: [id number] Name: RUBEN ALLEN Jr. Rep #:[id number] : 1965 59 From: Christian Doty MD PCP: Dr. George Frausto MD Status :REG [facility] Location: [facility] HPI - General HPI Narrative RUBEN ALLEN, is a 59 M who presents with bilateral lower extremity venous insufficiency with ulceration of medial ankles. He has significant reflux both deep and superficial. On the right he has accessory saphenous vein that directlylead to wound; on the left there are perforators and accessory saphenous veins. [facility] Medical History MRSA infection Former smoker History of edema Ulcer of right lower extremity with fat layer exposed Stasis ulcer Home Medications ?Medication ?Instructions ?Recorded ?Last Taken ?Type aspirin 81 mg chewable tablet 81 mg PO DAILY@0800 HEAL TH 07/04/18 07/17/21 History atorvastatin 20 mg tablet 20 mg PO QHS CHOLESTEROL 07/17/21 History hydrochlorothiazide 25 mg tablet 25 mg PO DAILY BP 07/18/21 History Allergy/AdvReac Type Severity Reaction Status Date / Time ciprofloxacin (From Cipro) Allergy Rash Verified 01/01/25 13:55 Family History Other CAD (coronary artery disease) CVA (cerebral vascular accident) Diabetes Heart disease Hypertension Social History Smoking Status: Former smoker Tobacco: How many years used: 21 ROS Constitutional Constitutional: Denies chills, fever(s), frequent falls, lethargy or weakness Eyes Eyes: Denies blind spots, change in vision or loss of vision ENT HEENT: Denies bleeding gums, hoarseness or sore throat Cardiovascular Cardiovascular: Denies abdominal pain, bluish discoloration of hand/feet, chest pain with activity, claudication, cold extremities, cyanosis, dyspnea on exertion, erythema on extremities, irregular heart rhythm, leg edema, leg ulcers, numbness in extremities or weakness in extremities Respiratory/Chest Respiratory/Chest: Denies cough, excessive phlegm production, shortness of breath at rest, shortness of breath with exertion or wheezing Gastrointestinal Gastrointestinal: Denies anorexia, change in stool character, constipation, diarrhea, melena or rectal bleeding Genitourinary Genitourinary: Denies dysuria or hematuria Musculoskeletal Musculoskeletal: Denies abnormal gait Integumentary Integumentary: Reports other Details: ; Denies erythema, non-healing lesions or wounds Neurologic Neurologic: Denies abnormal speech, focal weakness, headache(s), loss of vision,numbness, paresthesias or sensory deficit Hematologic/Lymphatic Hematologic/Lymphatic: Denies easy bleeding, easy bruising or lymphadenopathy Vital Signs Vital Signs Vital Signs: Weight Weight: 267 lb Body Mass Index (BMI) 39.4 Physical Exam Const alert, oriented x3, no apparent distress and healthy appearing General Appearance: cooperative; Negative for combative or lethargic Orientation / Consciousness: awake Exam Limitations: no limitations HEENT Head and Scalp: normocephalic and atraumatic Eyes EOMs intact bilaterally General Eye: normal appearance of both eyes Neck full ROM General: trachea midline Resp normal respiratory effort and no use of accessory muscles Effort and Inspection: Negative for labored, stridor or audible wheezes Cardio regular rate and regular rhythm Back/Spine Cervical Spine: cervical ROM normal Extremity full ROM, normal capillary refill and no clubbing, cyanosis or edema Skin no rashes or lesions noted Neuro oriented x3, CN's II-XII intact bilaterally, no focal motor deficits and no sensory deficits noted Psych thought process normal, cooperative, affect normal, speech normal and activity/motor behavior normal Assessment & Plan Assessment/Plan (1) Venous stasis ulcer of ankle: QUALIFIERS: Varicose vein presence: with varicose veins Laterality: unspecified laterality Non-pressure ulcer stage: with fat layer exposed Qualified Code(s): I83.003 - Varicose veins of unspecified lower extremity with ulcer of ankle; L97.302 - Non-pressure chronic ulcer of unspecified ankle with fat layer exposed PLAN: -foam ablation left accessory saphenous vein; will plan to treat left perforators prior to foam of superficial veins 05/918 <Electronically signed by Christian Doty MD> Cosigner Signature (if applicable): CC: Dr. George Frausto MD; Dr. Christian Doty MD~ Signed [facility] Work Phone: 1(965) 969-485905-28-2025 History and physical note [facility] Medical Records Department [address] [place] [address] History & Physical Exam 03/25/25914 MR#: [id number] Acct: [id number] Name: RUBEN ALLEN Jr. Rep #:[id number] : 1965 59 From: Christian Doty MD PCP: Dr. George Frausto MD Status :REG [facility] Location: [facility] HPI - General HPI Narrative RUBEN ALLEN, is a 59 M who presents with bilateral lower extremity venous insufficiency with ulceration of medial ankles. He has significant reflux both deep and superficial. On the right he has accessory saphenous vein that directlylead to wound; on the left there are perforators and accessory saphenous veins. [facility] Medical History MRSA infection Former smoker History of edema Ulcer of right lower extremity with fat layer exposed Stasis ulcer Home Medications ?Medication ?Instructions ?Recorded ?Last Taken ?Type aspirin 81 mg chewable tablet 81 mg PO DAILY@0800 HEAL TH 07/04/18 07/17/21 History atorvastatin 20 mg tablet 20 mg PO QHS CHOLESTEROL 07/17/21 History hydrochlorothiazide 25 mg tablet 25 mg PO DAILY BP 07/18/21 History Allergy/AdvReac Type Severity Reaction Status Date / Time ciprofloxacin (From Cipro) Allergy Rash Verified 01/01/25 13:55 Family History Other CAD (coronary artery disease) CVA (cerebral vascular accident) Diabetes Heart disease Hypertension Social History Smoking Status: Former smoker Tobacco: How many years used: 21 ROS Constitutional Constitutional: Denies chills, fever(s), frequent falls, lethargy or weakness Eyes Eyes: Denies blind spots, change in vision or loss of vision ENT HEENT: Denies bleeding gums, hoarseness or sore throat Cardiovascular Cardiovascular: Denies abdominal pain, bluish discoloration of hand/feet, chest pain with activity,claudication, cold extremities, cyanosis, dyspnea on exertion, erythema on extremities, irregular heart rhythm, leg edema, leg ulcers, numbness in extremities or weakness in extremities Respiratory/Chest Respiratory/Chest: Denies cough, excessive phlegm production, shortness of breath at rest, shortness of breath with exertion or wheezing Gastrointestinal Gastrointestinal: Denies anorexia, change in stool character, constipation, diarrhea, melena or rectal bleeding Genitourinary Genitourinary: Denies dysuria or hematuria Musculoskeletal Musculoskeletal: Denies abnormal gait Integumentary Integumentary: Reports other Details: ; Denies erythema, non-healing lesions or wounds Neurologic Neurologic: Denies abnormal speech, focal weakness, headache(s), loss of vision,numbness, paresthesias or sensory deficit Hematologic/Lymphatic Hematologic/Lymphatic: Denies easy bleeding, easy bruising or lymphadenopathy Vital Signs Vital Signs Vital Signs: Weight Weight: 267 lb Body Mass Index (BMI) 39.4 Physical Exam Const alert, oriented x3, no apparent distress and healthy appearing General Appearance: cooperative; Negative for combative or lethargic Orientation / Consciousness: awake Exam Limitations: no limitations HEENT Head and Scalp: normocephalic and atraumatic Eyes EOMs intact bilaterally General Eye: normal appearance of both eyes Neck full ROM General: trachea midline Resp normal respiratory effort and no use of accessory muscles Effort and Inspection: Negative for labored, stridor or audible wheezes Cardio regular rate and regular rhythm Back/Spine Cervical Spine: cervical ROM normal Extremity full ROM, normal capillary refill and no clubbing, cyanosis or edema Skin no rashes or lesions noted Neuro oriented x3, CN's II-XII intact bilaterally, no focal motor deficits and no sensory deficits noted Psych thought process normal, cooperative, affect normal, speech normal and activity/motor behavior normal Assessment & Plan Assessment/Plan (1) Venous stasis ulcer of ankle: QUALIFIERS: Varicose vein presence: with varicose veins Laterality: unspecified laterality Non-pressure ulcer stage: with fat layer exposed Qualified Code(s): I83.003 - Varicose veins of unspecified lower extremity with ulcer of ankle; L97.302 - Non-pressure chronic ulcer of unspecified ankle with fat layer exposed PLAN: -foam ablation left accessory saphenous vein; will plan to treat left perforators prior to foam of superficial veins 03/25/25918 Cosigner Signature (if applicable): CC: Dr. George Frausto MD; Dr. Christian Doty MD~ Signed [facility]05-28-2025 [facility] Medical Records Department [address] [place] [address] History Physical Exam 03/25/25914 MR#: [id number] Acct: [id number] Name: RUBEN ALLEN Jr. Rep #: [id number] : 1965 59 From: Christian Doty MD PCP: Dr. George Frausto MD Status:REG [facility] Location: [facility] HPI - General HPI Narrative RUBEN ALLEN, is a 59 M who presents with bilateral lower extremity venous insufficiency with ulceration of medial ankles. He has significant reflux both deep and superficial. On the right he has accessory saphenous vein that directly lead to wound; on the left there are perforators and accessory saphenous veins. [facility] Medical History MRSA infection Former smoker History of edema Ulcer of right lower extremity with fat layer exposed Stasis ulcer Home Medications ???Medication ???Instructions ???Recorded ???Last Taken ???Type aspirin 81 mg chewable tablet 81 mg PO DAILY@0800 HEALTH 8 07/17/21 History atorvastatin 20 mg tablet 20 mg PO QHS CHOLESTEROL 07/18/21 07/17/21 History hydrochlorothiazide 25 mg tablet 25 mg PO DAILY BP 07/18/21 1 History Allergy/AdvReac Type Severity Reaction Status Date / Time ciprofloxacin (From Cipro) Allergy Rash Verified 01/01/25 13:55 Family History Other CAD (coronary artery disease) CVA (cerebral vascular accident) Diabetes Heart disease Hypertension Social History Smoking Status: Former smoker Tobacco: How many years used: 21 ROS Constitutional Constitutional: Denies chills, fever(s), frequent falls, lethargy or weakness Eyes Eyes: Denies blind spots, change in vision or loss of vision ENT HEENT: Denies bleeding gums, hoarseness or sore throat Cardiovascular Cardiovascular: Denies abdominal pain, bluish discoloration of hand/feet, chest pain with activity, claudication, cold extremities, cyanosis, dyspnea on exertion, erythema on extremities, irregular heart rhythm, leg edema, leg ulcers, numbness in extremities or weakness in extremities Respiratory/Chest Respiratory/Chest: Denies cough, excessive phlegm production, shortness of breath at rest, shortness of breath with exertion or wheezing Gastrointestinal Gastrointestinal: Denies anorexia, change in stool character, constipation, diarrhea, melena or rectal bleeding Genitourinary Genitourinary: Denies dysuria or hematuria Musculoskeletal Musculoskeletal: Denies abnormal gait Integumentary Integumentary: Reports other Details: ; Denies erythema, non-healing lesions or wounds Neurologic Neurologic: Denies abnormal speech, focal weakness, headache(s), loss of vision, numbness, paresthesias or sensory deficit Hematologic/Lymphatic Hematologic/Lymphatic: Denies easy bleeding, easy bruising or lymphadenopathy Vital Signs Vital Signs Vital Signs: Weight Weight: 267 lb Body Mass Index (BMI) 39.4 Physical Exam Const alert, oriented x3, no apparent distress and healthy appearing General Appearance: cooperative; Negative for combative or lethargic Orientation / Consciousness: awake Exam Limitations: no limitations HEENT Head and Scalp: normocephalic and atraumatic Eyes EOMs intact bilaterally General Eye: normal appearance of both eyes Neck full ROM General: trachea midline Resp normal respiratory effort and no use of accessory muscles Effort and Inspection: Negative for labored, stridor or audible wheezes Cardio regular rate and regular rhythm Back/Spine Cervical Spine: cervical ROM normal Extremity full ROM, normal capillary refill and no clubbing, cyanosis or edema Skin no rashes or lesions noted Neuro oriented x3, CN's II-XII intact bilaterally, no focal motor deficits and no sensory deficits noted Psych thought process normal, cooperative, affect normal, speech normal and activity/motor behavior normal Assessment Plan Assessment/Plan (1) Venous stasis ulcer of ankle: QUALIFIERS: Varicose vein presence: with varicose veins Laterality: unspecified laterality Non-pressure ulcer stage: with fat layer exposed Qualified Code(s): I83.003 - Varicose veins of unspecified lower extremity with ulcer of ankle; L97.302 - Non-pressure chronic ulcer of unspecified ankle with fat layer exposed PLAN: -foam ablation left accessory saphenous vein; will plan to treat left perforators prior to foam of superficial veins 03/25/25918 Cosigner Signature (if applicable): CC: Dr. George Frausto MD; Dr. Christian Doty MD [facility]05-17-2025 Progress note Author [email or web address] Amaya [facility] Note Date/Time March 13, 2025 10:10 pm [facility] [address] [place] [address] Progress Note - Wound Care 03/12/2543 MR#: [id number] Acct: [id number] Name: RUBEN ALLEN Jr. Rep #:[id number] : 1965 59 From: Alice dickerson MD PCP: Dr. George Frausto MD Status :REG [facility] Location: History of Present Illness Date of Service: 03/12/25 Chief Complaint: Bilateral lower extremity ulcers History of Wound: This is a 54-year-old male presents to wound healing center with a long-standing history of chronic venous insufficiency, chronic venous hypertension, lower extremity edema, lower extremity pain, and chronic left lower extremity ulcer. 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 He is currently wearing graduated compression stockings which are documented to be 20-30 mmHg compression and these are thigh high. He reports great compliance with use. Heis also had previous arterial work-up with no intervention recommended by letter, his vascular surgeon. He denies taking nutritional supplementation. [place] [facility] and had a biopsy of the ulcer site. He also was previously treated by infectious disease for various contaminations and infections. He is not antibiotics at this time nor does he have any redness or odor coming from the wound. He denies fever, chill, nausea, vomiting, loss of appetite. 05/18/22: Mr. Allen presents with a new right lower extremity ulceration. He states that this has been present for months and he has been trying to manage itat home without any significant improvement. Opened up months ago, no known precipitating factor. Has been applying wound dressings without any significantimprovement. He reports increased drainage. Denies significant pain. No chills, fever or feeling of unwell. 10/16/24: Mr. Allen presents with a new right lower extremity ulceration. He states that it started out as a very small area that was slipping and then in the last week, became rather extensive. He also reports a foul smell. Has noted increase lower extremity edema. He states that he has been wearing his compression (20 to 30 mmHg) consistently. No chills, fever or otherwise feelingof unwell. Also has a new area on his left lower medial leg. He states that hehas been applying same 1 products to these new areas. Progress of Wound: No new concerns reported at this time. Drainage and periwound maceration have resolved. Denies any concerns since his last visit. Not doing daily dressing changes as recommended. Objective Data Objective Data Vital Signs: Vital Signs Temp Pulse Resp BP Pulse Ox O2 Del Method 97.6 F L 92 16 160/90 H 99 Room Air 03/12/25 08:03 03/12/25 08:03 03/12/25 08:03 03/12/25 08:03 02/26/25 00:39 03/12/25 08:03 Oxygen Delivery Method Room Air Body Mass Index (BMI) 31.4 Lab / Micro Data Micro: Microbiology 02/26/25 08:27 Wound - Left Foot Gram Stain - Final 02/26/25 08:27 Wound - Left Foot Wound Culture - Final Serratia marcescens Corynebacterium striatum Staphylococcus epidermidis 02/26/25 08:27 Wound - Left Foot Anaerobic Culture - Final Anaerobic cocci Charges/Coding Procedures Integumentary [id number]: [id number] Lakeisha subq tissue 20 sq cm/< Physical Exam Const alert, oriented x3 and no apparent distress General Appearance: cooperative and comfortable HEENT normocephalic Head and Scalp: normal to inspection, normocephalic and atraumatic Eyes EOMs intact bilaterally Neck full ROM and supple General: normal visual inspection Resp normal respiratory effort Effort and Inspection: able to speak in complete sentences Extremity normal to inspection General Extremity: edema Skin General Skin Exam: dry skin Wounds: wounds noted size Size: See clinical note, bed granulating well, marginswell defined, no odor and open Neuro oriented x3, CN's II-XII intact bilaterally, moves all extremities and no focal motor deficits Psych mental status grossly normal, thought process normal, cooperative and affect normal Debridement Note Debridement Note Wound debrided: Right lower extremity (medial ankle) Type of Debridement: Excisional debridement Anesthesia Used: 5% Lidocaine Gel Depth: Down to and including healthy tissue and in the subcutaneous layer Percentage of wound debrided: 100 Instrument Used: 3mm curette Tissue Removed: Slough and devitalized tissue Severity: Fat Layer Exposed Amount of bleeding with debridement: Mild Bleeding Controlled with: Pressure Patient tolerated procedure: Patient tolerated procedure well Post-Debridement Measurements and Additional Note: Post-Debridement Measurements/Treatment - Nurse 1 - General Ulcer Assessment Start: 02/26/25 08:08 Freq: Status: Active Protocol: SHANTA Activity Type Activity Date Activity User E-sign Co-sign Detail Recorded Client Recorded Date Recorded By Document 02/26/25 08:08 RB [id number] 02/26/25 08:11 RB Document 03/12/25 08:03 KW [id number] 03/12/25 08:10 KW 02/26/25 03/12/25 08:08 08:03 - Today's Visit Information Type of service Follow-up Visit Follow-up Visit (Physician/SUPERVISOR CHANNEL PROCESS (Physician/SUPERVISOR CHANNEL PROCESS ) ) Arrival Mode Ambulatory Ambulatory Transfer Assistance None Patient Identification Verified (Name & Yes Yes ) Patient Requires Transmission-Based No Precautions Height and Weight Body Mass Index (BMI) 31.4 31.4 BMI Classification Obese Obese Vital Signs Temperature (97.8 F-99.1 F) 96.8 F L 97.6 F L Temperature Source Temporal Temporal Pulse Rate (60-100) 89 92 Pulse Location Monitor Monitor Respiratory Rate (12-18) 18 16 Respiratory rate source Observation Observation Oxygen Delivery Method Room Air Blood Pressure (90/60-120/80) 148/78 H 160/90 H Blood Pressure Mean (mm Hg) 101 113 Source Monitor Monitor Position Semi-Fowlers Semi-Fowlers Blood Pressure Location Left Arm Left Arm History Since Last Visit- (Skip if this is Patient's initial visit) Have you changed medications since your No No last visit? Any new allergies or adverse reactions No No Had a fall/change in ADL's that may No No increase risk of falls Signs or symptoms of abuse and/or No No neglect since last visit Have you been in the hospital since your No No last visit? Has dressing in place as prescribed Yes Yes Has compression in place as prescribed Yes Yes Has offloadiing in place as prescribed N/A N/A Experienced any changes in pain level or No No management Left Footwear Regular Shoe Regular Shoe Right Footwear Regular Shoe Regular Shoe Pain Scale: 0-10 Numeric Is Patient Pain Free? Yes Yes WC - Nurse 1 - General Ulcer Measurement Start: 02/26/25 08:08 Freq: Status: Active Protocol: Activity Type Activity Date Activity User E-sign Co-sign Detail Recorded Client Recorded Date Recorded By Document 02/26/25 08:08 RB [id number] 02/26/25 08:11 RB Document 03/12/25 08:03 KW [id number] 03/12/25 08:10 KW 02/26/25 03/12/25 08:08 08:03 Wound Center Nurse 1 #18 Right Medial Ankle -Combined with other wound No -Current Size (cm) - Length 0.6 1.3 -Current Size (cm) - Width 0.3 0.5 -Current Size (cm) - Depth 0.2 0.2 -Total Square Cm 0.18 0.65 -Tunneling No -Undermining/Tunneling No -Circular Undermining No -Exudate Amt Medium Medium -Exudate Type Serosanguineous Serosanguineous -Wound Margin Thickened & Distinct, Rolled Under Outline Attached -Granulation Amt Medium (34-66%) Large (67-100%) -Granulation Quality Tetonia Tetonia -Slough/Fibrin Yes -Necrosis Amt Medium (34-66%) Small (1-33%) -Necrotic Tissue Type Adherent Slough Adherent Slough -Structure Exposed N/A -Texture (Ara-wound Skin Appearance) Assessed, Assessed Scarring -Moisture (Ara-wound Skin Appearance) Assessed,Dry/ Assessed Scaly -Color (Ara-wound Skin Appearance) Assessed Assessed -Temperature (Ara-wound Skin No Abnormality No Abnormality Appearance) (Pt Warm) (Pt Warm) -Tenderness on Palpation (Ara-wound No No Skin Appearance) -Ulcer Cleansing Wound Cleanser Soap and Water -Foul Odor after Cleansing No No -Anesthetic Used 5% Lidocaine 5% Lidocaine Gel Gel #10 Left Medial Ankle -Combined with other wound No -Current Size (cm) - Length 3 2.8 -Current Size (cm) - Width 1.4 1 -Current Size (cm) - Depth 0.4 0.4 -Total Square Cm 4.2 2.8 -Tunneling No -Undermining/Tunneling No -Circular Undermining No -Exudate Amt Medium Large -Exudate Type Serosanguineous Serosanguineous -Wound Margin Distinct, Thickened Outline Attached -Granulation Amt Medium (34-66%) Large (67-100%) -Granulation Quality Tetonia Tetonia -Slough/Fibrin Yes -Necrosis Amt Medium (34-66%) Medium (34-66%) -Necrotic Tissue Type Adherent Slough Adherent Slough -Structure Exposed N/A -Texture (Ara-wound Skin Appearance) Assessed, Assessed Scarring -Moisture (Ara-wound Skin Appearance) Assessed,Dry/ Assessed Scaly -Color (Ara-wound Skin Appearance) Assessed Assessed -Temperature (Ara-wound Skin No Abnormality No Abnormality Appearance) (Pt Warm) (Pt Warm) -Tenderness on Palpation (Ara-wound No No Skin Appearance) -Ulcer Cleansing Wound Cleanser Soap and Water -Foul Odor after Cleansing No No -Anesthetic Used 5% Lidocaine 5% Lidocaine Gel Gel Lower Limb Edema Present Yes Right Calf (cm) 37.2 Right Ankle (cm) 23 Left Calf (cm) 37.2 Left Ankle (cm) 23.5 WC - Nurse 2 - General Ulcer CM Notes Start: 02/26/25 08:08 Freq: Status: Active Protocol: Activity Type Activity Date Activity User E-sign Co-sign Detail Recorded Client Recorded Date Recorded By Document 02/26/25 08:18 [id number] 02/26/25 08:30 Document 03/12/25 08:21 [id number] 03/12/25 08:30 02/26/25 03/12/25 08:18 08:21 Wound Center Nurse 2 #18 Right Medial Ankle -Time 08:19 08:22 -Correct Patient Yes Yes -Correct Side, Site, Position Yes Yes -Correct Procedure Yes Yes -Procedure Performed Yes Yes -Type of Procedure Debridement Debridement -Clinical Debridement Subcutaneous Subcutaneous -Tissue Removed Subcutaneous Subcutaneous -Post Debridement (cm) - Length 1.2 1.2 -Post Debridement (cm) - Width 0.5 0.6 -Post Debridement (cm) - Depth 0.1 0.1 -Total Square (Post) (cm) 0.60 0.72 -Area of Debridement (cm) - Length 1.2 1.2 -Area of Debridement (cm) - Width 0.5 0.6 -Total Square (Area) (cm) 0.60 0.72 -Tunneling No No -Undermining/Tunneling No No -Circular Undermining No No -Wound/Ulcer Outcome Not Healed Not Healed -Ulcer Cleansing Rinsed/ Rinsed/ Irrigated with Irrigated with Saline Saline -Foul Odor after Cleansing No No -Bioengineered Tissue No No -Bleeding Controlled with Pressure Pressure -Treatment Response Procedure Procedure Tolerated Well Tolerated Well -Offloading No No -Debridement - Subq, 1st 20sq cm No No #10 Left Medial Ankle -Time 08:19 08:23 -Correct Patient Yes Yes -Correct Side, Site, Position Yes Yes -Correct Procedure Yes Yes -Procedure Performed Yes Yes -Type of Procedure Debridement Debridement -Clinical Debridement Subcutaneous Subcutaneous -Tissue Removed Subcutaneous Subcutaneous -Post Debridement (cm) - Length 3.2 3.2 -Post Debridement (cm) - Width 1.3 1.1 -Post Debridement (cm) - Depth 0.3 0.3 -Total Square (Post) (cm) 4.16 3.52 -Area of Debridement (cm) - Length 3.2 3.2 -Area of Debridement (cm) - Width 1.3 1.1 -Total Square (Area) (cm) 4.16 3.52 -Tunneling No No -Undermining/Tunneling No No -Circular Undermining No No -Wound/Ulcer Outcome Not Healed Not Healed -Ulcer Cleansing Rinsed/ Rinsed/ Irrigated with Irrigated with Saline Saline -Foul Odor after Cleansing No No -Bioengineered Tissue No No -Bleeding Controlled with Pressure Pressure -Treatment Response Procedure Procedure Tolerated Well Tolerated Well -Offloading No No -Debridement - Subq, 1st 20sq cm Yes Yes Pain Scale: 0-10 Numeric Is Patient Pain Free? Yes Yes WC - Nurse 3 - General Ulcer D/C NN Start: 02/26/25 08:08 Freq: Status: Active Protocol: Activity Type Activity Date Activity User E-sign Co-sign Detail Recorded Client Recorded Date Recorded By Document 02/26/25 08:39 RB [id number] 02/26/25 08:41 RB Document 03/12/25 08:39 DL [id number] 03/12/25 08:42 DL 02/26/25 03/12/25 08:39 08:39 Wound Care Center Nurse 3 #18 Right Medial Ankle -Ulcer Cleansing Rinsed/ Irrigated with Saline -Foul Odor after Cleansing No -Other Dressing abd ABD -Primary Dressing Covered/Secured with Secured with Tape #10 Left Medial Ankle -Ulcer Cleansing Rinsed/ Irrigated with Saline -Foul Odor after Cleansing No -Other Dressing abd ABD -Primary Dressing Covered/Secured with Secured with Tape -Wound Comment(s) Pt to resume dakins and Aquacel Ex at home. ABD only today so pt can go home and shower. BLE -Stockings Yes: pt own Yes stockings Treatment Response Procedure Procedure Tolerated Well Tolerated Well Pain Scale: 0-10 Numeric Is Patient Pain Free? Yes Yes WC - Visit Discharge Discharge Condition Stable Stable Ambulatory Status Ambulatory Ambulatory Transportation Private Auto Private Auto Medication Reconcilliation completed & No provided to patient/care provider Clinical Summary of Care Provided Yes Notes: pt will dress wound as directed aquacel extra, adaptic, keramax kerlix at home after shower Additional Wound Wound debrided: Left lower extremity (medial foot/ankle) Type of Debridement: Excisional debridement Anesthesia Used: 5% Lidocaine Gel Depth: in the subcutaneous layer Percentage of wound debrided: 100 Instrument Used: 5mm curette Tissue Removed: Slough and devitalized tissue Severity: Fat Layer Exposed Amount of bleeding with debridement: Mild Bleeding Controlled with: Pressure Patient tolerated procedure: Patient tolerated procedure well Assessment/Plan Assessment/Plan (1) Ulcer of left lower extremity with fat layer exposed: CODE(S): L97.922 - Non-pressure chronic ulcer of unspecified part of left lower leg with fat layer exposed (2) PVD (peripheral vascular disease): CODE(S): I73.9 - Peripheral vascular disease, unspecified (3) Chronic venous insufficiency: CODE(S): I87.2 - Venous insufficiency (chronic) (peripheral) (4) Delayed wound healing: CODE(S): T14.8XXD - Other injury of unspecified body region, subsequent encounter (5) Ulcer of right lower extremity with fat layer exposed: CODE(S): L97.912 - Non-pressure chronic ulcer of unspecified part of rightlower leg with fat layer exposed PLAN: Plan Debridement done as documented above, procedure was well-tolerated. No acute concerns at this time. Drainage and maceration to left lower extremity noted athis last visit has resolved. Some improvement in his lower extremity edema as well. Has been on his feet less. He however is not doing dressing changes as recommended. Cultures reviewed, since he is clinically improved and has no concerns, will hold off antibiotics. For now, continue 30 minutes Dakin's soak daily. Apply Bactroban, Aquacel extra to ulcers, Adaptic to surrounding skin and cover with KerraMax care. Consistent use of compression, leg elevation and exercise as tolerated strongly recommended, he voiced understanding. Compliancewith dressing changes also strongly recommended. Scheduled for bilateral lower extremity foam sclerotherapy on the 25 of March. Increased protein intake, protein supplements, zinc and vitamin D. Optimal diabetes control discussed, last A1C was 5.9. Also advised that he moisturize his skin consistently. His questions were answered, and he was advised to call with any further questions or concerns. Follow-up in 2 weeks or sooner if needed. This note was generated with [employer]elliD[employer] dictation software. It may contain incorrectwords, spelling, and punctuation that were not noted in checking the note beforesigning. 03/13/252209 <Electronically signed by Alice Amaya MD> Cosigner Signature (if applicable): CC: ~ Signed [facility] Work Phone: [phone] Progress note [place] [facility] [address] [place] [address] Progress Note - Wound Care 03/12/25 0943 MR#: [id number] Acct: [id number] Name: ALEJANDRORUBEN Eunice Cornejo. Rep #:[id number] 02 : 1965 59 From: Alice dickerson MD PCP: Dr. George Frausto MD Status :REG RCR Location: History of Present Illness Date of Service: 03/12/25 Chief Complaint: Bilateral lower extremity ulcers History of Wound: This is a 54-year-old male presents to wound healing center with a long-standing history of chronic venous insufficiency, chronic venous hypertension, lower extremity edema, lower extremity pain, and chronic left lower extremity ulcer. 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 He is currently wearing graduated compression stockings which are documented karla 20-30 mmHg compression and these are thigh high. He reports great compliance with use. Heis alsohad previous arterial work-up with no intervention recommended by letter, his vascular surgeon. He denies taking nutritional supplementation. [facility] and had a biopsy of the ulcer site. He also was previously treated by infectious disease for various contaminations and infections. He is not antibiotics at this time nor does he have any redness or odor coming from the wound. He denies fever, chill, nausea, vomiting, loss of appetite. 05/18/22: Mr. Allen presents with a new right lower extremity ulceration. He states that this has been present for months and he has been trying to manage itat home without any significant improvement. Opened up months ago, no known precipitating factor. Has been applying wound dressings without any significantimprovement. He reports increased drainage. Denies significant pain. No chills, fever or feeling of unwell. 10/16/24: Mr. Allen presents with a new right lower extremity ulceration. He states that it started out as a very small area that was slipping and then in the last week, became rather extensive. He also reports a foul smell. Has noted increase lower extremity edema. He states that he has been wearing his compression (20 to 30 mmHg) consistently. No chills, fever or otherwise feelingof unwell. Also has a new area on his left lower medial leg. He states that hehas been applying same 1 products to these new areas. Progress of Wound: No new concerns reported at this time. Drainage and periwound maceration have resolved. Denies any concerns since his last visit. Not doing daily dressing changes as recommended. Objective Data Objective Data Vital Signs: Vital Signs Temp Pulse Resp BP Pulse Ox O2 Del Method 97.6 F L 92 16 160/90 H 99 Room Air 03/12/25 08:03 03/12/25 08:03 03/12/25 08:03 03/12/25 08:03 02/26/25 00:39 03/12/25 08:03 Oxygen Delivery Method Room Air Body Mass Index (BMI) 31.4 Lab / Micro Data Micro: Microbiology 02/26/25 08:27 Wound - Left Foot Gram Stain - Final 02/26/25 08:27 Wound - Left Foot Wound Culture - Final Serratia marcescens Corynebacterium striatum Staphylococcus epidermidis 02/26/25 08:27 Wound - Left Foot Anaerobic Culture - Final Anaerobic cocci Charges/Coding Procedures Integumentary 111xxx-113xx: [id number] Lakeisha subq tissue 20 sq cm/< Physical Exam Const alert, oriented x3 and no apparent distress General Appearance: cooperative and comfortable HEENT normocephalic Head and Scalp: normal to inspection, normocephalic and atraumatic Eyes EOMs intact bilaterally Neck full ROM and supple General: normal visual inspection Resp normal respiratory effort Effort and Inspection: able to speak in complete sentences Extremity normal to inspection General Extremity: edema Skin General Skin Exam: dry skin Wounds: wounds noted size Size: See clinical note, bed granulating well, marginswell defined, no odor and open Neuro oriented x3, CN's II-XII intact bilaterally, moves all extremities and no focal motor deficits Psych mental status grossly normal, thought process normal, cooperative and affect normal Debridement Note Debridement Note Wound debrided: Right lower extremity (medial ankle) Type of Debridement: Excisional debridement Anesthesia Used: 5% Lidocaine Gel Depth: Down to and including healthy tissue and in the subcutaneous layer Percentage of wound debrided: 100 Instrument Used: 3mm curette Tissue Removed: Slough and devitalized tissue Severity: Fat Layer Exposed Amount of bleeding with debridement: Mild Bleeding Controlled with: Pressure Patient tolerated procedure: Patient tolerated procedure well Post-Debridement Measurements and Additional Note: Post-Debridement Measurements/Treatment KIMBERLY - Nurse 1 - General Ulcer Assessment Start: 02/26/25 08:08 Freq: Status: Active Protocol: SHANTA Activity Type Activity Date Activity User E-sign Co-sign Detail Recorded Client Recorded Date Recorded By Document 02/26/25 08:08 RB [id number] 02/26/25 08:11 RB Document 03/12/25 08:03 KW [id number] 03/12/25 08:10 KW 02/26/25 03/12/25 08:08 08:03 KIMBERLY - Today's Visit Information Type of service Follow-up Visit Follow-up Visit (Physician/SUPERVISOR CHANNEL PROCESS (Physician/SUPERVISOR CHANNEL PROCESS ) ) Arrival Mode Ambulatory Ambulatory Transfer Assistance None Patient Identification Verified (Name & Yes Yes ) Patient Requires Transmission-Based No Precautions Height and Weight Body Mass Index (BMI) 31.4 31.4 BMI Classification Obese Obese Vital Signs Temperature (97.8 F-99.1 F) 96.8 F L 97.6 F L Temperature Source Temporal Temporal Pulse Rate (60-100) 89 92 Pulse Location Monitor Monitor Respiratory Rate (12-18) 18 16 Respiratory rate source Observation Observation Oxygen Delivery Method Room Air Blood Pressure (90/60-120/80) 148/78 H 160/90 H Blood Pressure Mean (mm Hg) 101 113 Source Monitor Monitor Position Semi-Fowlers Semi-Fowlers Blood Pressure Location Left Arm Left Arm History Since Last Visit- (Skip if this is Patient's initial visit) Have you changed medications since your No No last visit? Any new allergies or adverse reactions No No Had a fall/change in ADL's that may No No increase risk of falls Signs or symptoms of abuse and/or No No neglect since last visit Have you been in the hospital since your No No last visit? Has dressing in place as prescribed Yes Yes Has compression in place as prescribed Yes Yes Has offloadiing in place as prescribed N/A N/A Experienced any changes in pain level or No No management Left Footwear Regular Shoe Regular Shoe Right Footwear Regular Shoe Regular Shoe Pain Scale: 0-10 Numeric Is Patient Pain Free? Yes Yes - Nurse 1 - General Ulcer Measurement Start: 02/26/25 08:08 Freq: Status: Active Protocol: Activity Type Activity Date Activity User E-sign Co-sign Detail Recorded Client Recorded Date Recorded By Document 02/26/25 08:08 RB [id number] 02/26/25 08:11 RB Document 03/12/25 08:03 KW [id number] 03/12/25 08:10 KW 02/26/25 03/12/25 08:08 08:03 Wound Center Nurse 1 #18 Right Medial Ankle -Combined with other wound No -Current Size (cm) - Length 0.6 1.3 -Current Size (cm) - Width 0.3 0.5 -Current Size (cm) - Depth 0.2 0.2 -Total Square Cm 0.18 0.65 -Tunneling No -Undermining/Tunneling No -Circular Undermining No -Exudate Amt Medium Medium -Exudate Type Serosanguineous Serosanguineous -Wound Margin Thickened & Distinct, Rolled Under Outline Attached -Granulation Amt Medium (34-66%) Large (67-100%) -Granulation Quality Tet[place] Tetonia -Slough/Fibrin Yes -Necrosis Amt Medium (34-66%) Small (1-33%) -Necrotic Tissue Type Adherent Slough Adherent Slough -Structure Exposed N/A -Texture (Ara-wound Skin Appearance) Assessed, Assessed Scarring -Moisture (Ara-wound Skin Appearance) Assessed,Dry/ Assessed Scaly -Color (Ara-wound Skin Appearance) Assessed Assessed -Temperature (Ara-wound Skin No Abnormality No Abnormality Appearance) (Pt Warm) (Pt Warm) -Tenderness on Palpation (Ara-wound No No Skin Appearance) -Ulcer Cleansing Wound Cleanser Soap and Water -Foul Odor after Cleansing No No -Anesthetic Used 5% Lidocaine 5% Lidocaine Gel Gel #10 Left Medial Ankle -Combined with other wound No -Current Size (cm) - Length 3 2.8 -Current Size (cm) - Width 1.4 1 -Current Size (cm) - Depth 0.4 0.4 -Total Square Cm 4.2 2.8 -Tunneling No -Undermining/Tunneling No -Circular Undermining No -Exudate Amt Medium Large -Exudate Type Serosanguineous Serosanguineous -Wound Margin Distinct, Thickened Outline Attached -Granulation Amt Medium (34-66%) Large (67-100%) -Granulation Quality [place] Tetonia -Slough/Fibrin Yes -Necrosis Amt Medium (34-66%) Medium (34-66%) -Necrotic Tissue Type Adherent Slough Adherent Slough -Structure Exposed N/A -Texture (Ara-wound Skin Appearance) Assessed, Assessed Scarring -Moisture (Ara-wound Skin Appearance) Assessed,Dry/ Assessed Scaly -Color (Ara-wound Skin Appearance) Assessed Assessed -Temperature (Ara-wound Skin No Abnormality No Abnormality Appearance) (Pt Warm) (Pt Warm) -Tenderness on Palpation (Ara-wound No No Skin Appearance) -Ulcer Cleansing Wound Cleanser Soap and Water -Foul Odor after Cleansing No No -Anesthetic Used 5% Lidocaine 5% Lidocaine Gel Gel Lower Limb Edema Present Yes Right Calf (cm) 37.2 Right Ankle (cm) 23 Left Calf (cm) 37.2 Left Ankle (cm) 23.5 - Nurse 2 - General Ulcer CM Notes Start: 02/26/25 08:08 Freq: Status: Active Protocol: Activity Type Activity Date Activity User E-sign Co-sign Detail Recorded Client Recorded Date Recorded By Document 02/26/25 08:18 [id number] 02/26/25 08:30 Document 03/12/25 08:21 [id number] 03/12/25 08:30 02/26/25 03/12/25 08:18 08:21 Wound Center Nurse 2 #18 Right Medial Ankle -Time 08:19 08:22 -Correct Patient Yes Yes -Correct Side, Site, Position Yes Yes -Correct Procedure Yes Yes -Procedure Performed Yes Yes -Type of Procedure Debridement Debridement -Clinical Debridement Subcutaneous Subcutaneous -Tissue Removed Subcutaneous Subcutaneous -Post Debridement (cm) - Length 1.2 1.2 -Post Debridement (cm) - Width 0.5 0.6 -Post Debridement (cm) - Depth 0.1 0.1 -Total Square (Post) (cm) 0.60 0.72 -Area of Debridement (cm) - Length 1.2 1.2 -Area of Debridement (cm) - Width 0.5 0.6 -Total Square (Area) (cm) 0.60 0.72 -Tunneling No No -Undermining/Tunneling No No -Circular Undermining No No -Wound/Ulcer Outcome Not Healed Not Healed -Ulcer Cleansing Rinsed/ Rinsed/ Irrigated with Irrigated with Saline Saline -Foul Odor after Cleansing No No -Bioengineered Tissue No No -Bleeding Controlled with Pressure Pressure -Treatment Response Procedure Procedure Tolerated Well Tolerated Well -Offloading No No -Debridement - Subq, 1st 20sq cm No No #10 Left Medial Ankle -Time 08:19 08:23 -Correct Patient Yes Yes -Correct Side, Site, Position Yes Yes -Correct Procedure Yes Yes -Procedure Performed Yes Yes -Type of Procedure Debridement Debridement -Clinical Debridement Subcutaneous Subcutaneous -Tissue Removed Subcutaneous Subcutaneous -Post Debridement (cm) - Length 3.2 3.2 -Post Debridement (cm) - Width 1.3 1.1 -Post Debridement (cm) - Depth 0.3 0.3 -Total Square (Post) (cm) 4.16 3.52 -Area of Debridement (cm) - Length 3.2 3.2 -Area of Debridement (cm) - Width 1.3 1.1 -Total Square (Area) (cm) 4.16 3.52 -Tunneling No No -Undermining/Tunneling No No -Circular Undermining No No -Wound/Ulcer Outcome Not Healed Not Healed -Ulcer Cleansing Rinsed/ Rinsed/ Irrigated with Irrigated with Saline Saline -Foul Odor after Cleansing No No -Bioengineered Tissue No No -Bleeding Controlled with Pressure Pressure -Treatment Response Procedure Procedure Tolerated Well Tolerated Well -Offloading No No -Debridement - Subq, 1st 20sq cm Yes Yes Pain Scale: 0-10 Numeric Is Patient Pain Free? Yes Yes - Nurse 3 - General Ulcer D/C NN Start: 02/26/25 08:08 Freq: Status: Active Protocol: Activity Type Activity Date Activity User E-sign Co-sign Detail Recorded Client Recorded Date Recorded By Document 02/26/25 08:39 RB [id number] 02/26/25 08:41 RB Document 03/12/25 08:39 DL [id number] 03/12/25 08:42 DL 02/26/25 03/12/25 08:39 08:39 Wound Care Center Nurse 3 #18 Right Medial Ankle -Ulcer Cleansing Rinsed/ Irrigated with Saline -Foul Odor after Cleansing No -Other Dressing abd ABD -Primary Dressing Covered/Secured with Secured with Tape #10 Left Medial Ankle -Ulcer Cleansing Rinsed/ Irrigated with Saline -Foul Odor after Cleansing No -Other Dressing abd ABD -Primary Dressing Covered/Secured with Secured with Tape -Wound Comment(s) Pt to resume dakins and Aquacel Ex at home. ABD only today so pt can go home and shower. BLE -Stockings Yes: pt own Yes stockings Treatment Response Procedure Procedure Tolerated Well Tolerated Well Pain Scale: 0-10 Numeric Is Patient Pain Free? Yes Yes - Visit Discharge Discharge Condition Stable Stable Ambulatory Status Ambulatory Ambulatory Transportation Private Auto Private Auto Medication Reconcilliation completed & No provided to patient/care provider Clinical Summary of Care Provided Yes Notes: pt will dress wound as directed aquacel extra, adaptic, keramax kerlix at home after shower Additional Wound Wound debrided: Left lower extremity (medial foot/ankle) Type of Debridement: Excisional debridement Anesthesia Used: 5% Lidocaine Gel Depth: in the subcutaneous layer Percentage of wound debrided: 100 Instrument Used: 5mm curette Tissue Removed: Slough and devitalized tissue Severity: Fat Layer Exposed Amount of bleeding with debridement: Mild Bleeding Controlled with: Pressure Patient tolerated procedure: Patient tolerated procedure well Assessment/Plan Assessment/Plan (1) Ulcer of left lower extremity with fat layer exposed: CODE(S): L97.922 - Non-pressure chronic ulcer of unspecified part of left lower leg with fat layer exposed (2) PVD (peripheral vascular disease): CODE(S): I73.9 - Peripheral vascular disease, unspecified (3) Chronic venous insufficiency: CODE(S): I87.2 - Venous insufficiency (chronic) (peripheral) (4) Delayed wound healing: CODE(S): T14.8XXD - Other injury of unspecified body region, subsequent encounter (5) Ulcer of right lower extremity with fat layer exposed: CODE(S): L97.912 - Non-pressure chronic ulcer of unspecified part of rightlower leg with fat layer exposed PLAN: Plan Debridement done as documented above, procedure was well-tolerated. No acute concerns at this time.Drainage and maceration to left lower extremity noted athis last visit has resolved. Some improvement in his lower extremity edema as well. Has been on his feet less. He however is not doing dressingchanges as recommended. Cultures reviewed, since he is clinically improved and has no concerns, will hold off antibiotics. For now, continue 30 minutes Dakin's soak daily. Apply Bactroban, Aquacel extra to ulcers, Adaptic to surrounding skin and cover with KerraMax care. Consistent use of compression, leg elevation and exercise as tolerated strongly recommended, he voiced understanding. Compliance with dressing changes also strongly recommended. Scheduled for bilateral lower extremity foam sclerotherapy on the 25 of March. Increased protein intake, protein supplements, zinc and vitamin D. Optimal diabetes control discussed, last A1C was 5.9. Also advised that he moisturize his skin consistently. His questions were answered, and he was advised to call with any further questions or concerns.Follow-up in 2 weeks or sooner if needed. This note was generated with Radio[employer] software. It may contain incorrectwords, spelling, and punctuation that were not noted in checking the note beforesigning. 03/13/250 Cosigner Signature (if applicable): CC: ~ Signed [facility]05-02-2025 Progress note Author Alice Amaya [facility] Note Date/Time February 27, 2025 4:21pm [facility] [address] [place] [address] Progress Note - Wound Care 02/26/25 0930 MR#: [id number] Acct: [id number] Name: RUBEN ALLEN Jr. Rep #:[id number] 04 : 1965 59 From: Alice dickerson MD PCP: Dr. George Frausto MD Status :REG RCR Location: History of Present Illness Date of Service: 02/26/25 Chief Complaint: Bilateral lower extremity ulcers History of Wound: This is a 54-year-old male presents to wound healing center with a long-standing history of chronic venous insufficiency, chronic venous hypertension, lower extremity edema, lower extremity pain, and chronic left lower extremity ulcer. 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 He is currently wearing graduated compression stockings which are documented to be 20-30 mmHg compression and these are thigh high. He reports great compliance with use. Heis also had previous arterial work-up with no intervention recommended by letter, his vascular surgeon. He denies taking nutritional supplementation. [facility] and had a biopsy of the ulcer site. He also was previously treated by infectious disease for various contaminations and infections. He is not antibiotics at this time nor does he have any redness or odor coming from the wound. He denies fever, chill, nausea, vomiting, loss of appetite. 05/18/22: Mr. Allen presents with a new right lower extremity ulceration. He states that this has been present for months and he has been trying to manage itat home without any significant improvement. Opened up months ago, no known precipitating factor. Has been applying wound dressings without any significantimprovement. He reports increased drainage. Denies significant pain. No chills, fever or feeling of unwell. 10/16/24: Mr. Allen presents with a new right lower extremity ulceration. He states that it started out as a very small area that was slipping and then in the last week, became rather extensive. He also reports a foul smell. Has noted increase lower extremity edema. He states that he has been wearing his compression (20 to 30 mmHg) consistently. No chills, fever or otherwise feelingof unwell. Also has a new area on his left lower medial leg. He states that hehas been applying same 1 products to these new areas. Progress of Wound: He reports increased drainage from his left lower extremity ulcer. He has been standing a lot more and was out mushroom hunting as well. He states that he hasbeen wearing his compression consistently. Increased lower extremity edema appreciated. Scheduled for bilateral lower extremity from sclerotherapy on the 25 of March. Objective Data Objective Data Vital Signs: Vital Signs Temp Pulse Resp BP Pulse Ox 96.8 F L 89 18 148/78 H 99 02/26/25 08:08 02/26/25 08:08 02/26/25 08:08 02/26/25 08:08 02/26/25 00:39 Body Mass Index (BMI) 31.4 Charges/Coding Procedures Integumentary 111xxx-113xx: 00972 Lakeisha subq tissue 20 sq cm/< Physical Exam Const alert, oriented x3 and no apparent distress General Appearance: cooperative and comfortable HEENT normocephalic Head and Scalp: normal to inspection, normocephalic and atraumatic Eyes EOMs intact bilaterally Neck full ROM and supple General: normal visual inspection Resp normal respiratory effort Effort and Inspection: able to speak in complete sentences Extremity normal to inspection General Extremity: edema Skin General Skin Exam: dry skin Wounds: wounds noted size Size: See clinical note, bed granulating well, marginswell defined, no odor and open Neuro oriented x3, CN's II-XII intact bilaterally, moves all extremities and no focal motor deficits Psych mental status grossly normal, thought process normal, cooperative and affect normal Debridement Note Debridement Note Wound debrided: Right medial ankle/lower extremity Type of Debridement: Excisional debridement Anesthesia Used: 5% Lidocaine Gel Depth: in the subcutaneous layer Percentage of wound debrided: 100 Instrument Used: 3mm curette Tissue Removed: Slough and devitalized tissue Severity: Fat Layer Exposed Amount of bleeding with debridement: Mild Bleeding Controlled with: Pressure Patient tolerated procedure: Patient tolerated procedure well Post-Debridement Measurements and Additional Note: Post-Debridement Measurements/Treatment - Nurse 1 - General Ulcer Assessment Start: 02/26/25 08:08 Freq: Status: Active Protocol: SHANTA Activity Type Activity Date Activity User E-sign Co-sign Detail Recorded Client Recorded Date Recorded By Document 02/26/25 08:08 [email or web address] [id number] 02/26/25 08:11 RB 02/26/25 08:08 WC - Today's Visit Information Type of service Follow-up Visit (Physician/SUPERVISOR CHANNEL PROCESS ) Arrival Mode Ambulatory Transfer Assistance None Patient Identification Verified (Name & Yes ) Patient Requires Transmission-Based No Precautions Height and Weight Body Mass Index (BMI) 31.4 BMI Classification Obese Vital Signs Temperature (97.8 F-99.1 F) 96.8 F L Temperature Source Temporal Pulse Rate (60-100) 89 Pulse Location Monitor Respiratory Rate (12-18) 18 Respiratory rate source Observation Blood Pressure (90/60-120/80) 148/78 H Blood Pressure Mean (mm Hg) 101 Source Monitor Position Semi-Fowlers Blood Pressure Location Left Arm History Since Last Visit- (Skip if this is Patient's initial visit) Have you changed medications since your No last visit? Any new allergies or adverse reactions No Had a fall/change in ADL's that may No increase risk of falls Signs or symptoms of abuse and/or No neglect since last visit Have you been in the hospital since your No last visit? Has dressing in place as prescribed Yes Has compression in place as prescribed Yes Has offloadiing in place as prescribed N/A Experienced any changes in pain level or No management Left Footwear Regular Shoe Right Footwear Regular Shoe Pain Scale: 0-10 Numeric Is Patient Pain Free? Yes - Nurse 1 - General Ulcer Measurement Start: 02/26/25 08:08 Freq: Status: Active Protocol: Activity Type Activity Date Activity User E-sign Co-sign Detail Recorded Client Recorded Date Recorded By Document 02/26/25 08:08 [email or web address] [id number] 02/26/25 08:11 RB 02/26/25 08:08 Wound Center Nurse 1 #18 Right Medial Ankle -Combined with other wound No -Current Size (cm) - Length 0.6 -Current Size (cm) - Width 0.3 -Current Size (cm) - Depth 0.2 -Total Square Cm 0.18 -Tunneling No -Undermining/Tunneling No -Circular Undermining No -Exudate Amt Medium -Exudate Type Serosanguineous -Wound Margin Thickened & Rolled Under -Granulation Amt Medium (34-66%) -Granulation Quality [place] -Slough/Fibrin Yes -Necrosis Amt Medium (34-66%) -Necrotic Tissue Type Adherent Slough -Structure Exposed N/A -Texture (Ara-wound Skin Appearance) Assessed, Scarring -Moisture (Ara-wound Skin Appearance) Assessed,Dry/ Scaly -Color (Ara-wound Skin Appearance) Assessed -Temperature (Ara-wound Skin No Abnormality Appearance) (Pt Warm) -Tenderness on Palpation (Ara-wound No Skin Appearance) -Ulcer Cleansing Wound Cleanser -Foul Odor after Cleansing No -Anesthetic Used 5% Lidocaine Gel #10 Left Medial Ankle -Combined with other wound No -Current Size (cm) - Length 3 -Current Size (cm) - Width 1.4 -Current Size (cm) - Depth 0.4 -Total Square Cm 4.2 -Tunneling No -Undermining/Tunneling No -Circular Undermining No -Exudate Amt Medium -Exudate Type Serosanguineous -Wound Margin Distinct, Outline Attached -Granulation Amt Medium (34-66%) -Granulation Quality [place] -Slough/Fibrin Yes -Necrosis Amt Medium (34-66%) -Necrotic Tissue Type Adherent Slough -Structure Exposed N/A -Texture (Ara-wound Skin Appearance) Assessed, Scarring -Moisture (Ara-wound Skin Appearance) Assessed,Dry/ Scaly -Color (Ara-wound Skin Appearance) Assessed -Temperature (Ara-wound Skin No Abnormality Appearance) (Pt Warm) -Tenderness on Palpation (Ara-wound No Skin Appearance) -Ulcer Cleansing Wound Cleanser -Foul Odor after Cleansing No -Anesthetic Used 5% Lidocaine Gel Lower Limb Edema Present Yes Right Calf (cm) 37.2 Right Ankle (cm) 23 Left Calf (cm) 37.2 Left Ankle (cm) 23.5 WC - Nurse 2 - General Ulcer CM Notes Start: 02/26/25 08:08 Freq: Status: Active Protocol: Activity Type Activity Date Activity User E-sign Co-sign Detail Recorded Client Recorded Date Recorded By Document 02/26/25 08:18 [id number] 02/26/25 08:30 02/26/25 08:18 Wound Center Nurse 2 #18 Right Medial Ankle -Time 08:19 -Correct Patient Yes -Correct Side, Site, Position Yes -Correct Procedure Yes -Procedure Performed Yes -Type of Procedure Debridement -Clinical Debridement Subcutaneous -Tissue Removed Subcutaneous -Post Debridement (cm) - Length 1.2 -Post Debridement (cm) - Width 0.5 -Post Debridement (cm) - Depth 0.1 -Total Square (Post) (cm) 0.60 -Area of Debridement (cm) - Length 1.2 -Area of Debridement (cm) - Width 0.5 -Total Square (Area) (cm) 0.60 -Tunneling No -Undermining/Tunneling No -Circular Undermining No -Wound/Ulcer Outcome Not Healed -Ulcer Cleansing Rinsed/ Irrigated with Saline -Foul Odor after Cleansing No -Bioengineered Tissue No -Bleeding Controlled with Pressure -Treatment Response Procedure Tolerated Well -Offloading No -Debridement - Subq, 1st 20sq cm No #10 Left Medial Ankle -Time 08:19 -Correct Patient Yes -Correct Side, Site, Position Yes -Correct Procedure Yes -Procedure Performed Yes -Type of Procedure Debridement -Clinical Debridement Subcutaneous -Tissue Removed Subcutaneous -Post Debridement (cm) - Length 3.2 -Post Debridement (cm) - Width 1.3 -Post Debridement (cm) - Depth 0.3 -Total Square (Post) (cm) 4.16 -Area of Debridement (cm) - Length 3.2 -Area of Debridement (cm) - Width 1.3 -Total Square (Area) (cm) 4.16 -Tunneling No -Undermining/Tunneling No -Circular Undermining No -Wound/Ulcer Outcome Not Healed -Ulcer Cleansing Rinsed/ Irrigated with Saline -Foul Odor after Cleansing No -Bioengineered Tissue No -Bleeding Controlled with Pressure -Treatment Response Procedure Tolerated Well -Offloading No -Debridement - Subq, 1st 20sq cm Yes Pain Scale: 0-10 Numeric Is Patient Pain Free? Yes WC - Nurse 3 - General Ulcer D/C NN Start: 02/26/25 08:08 Freq: Status: Active Protocol: Activity Type Activity Date Activity User E-sign Co-sign Detail Recorded Client Recorded Date Recorded By Document 02/26/25 08:39 RB [id number] 02/26/25 08:41 RB 02/26/25 08:39 Wound Care Center Nurse 3 #18 Right Medial Ankle -Other Dressing abd -Primary Dressing Covered/Secured with Secured with Tape #10 Left Medial Ankle -Other Dressing abd -Primary Dressing Covered/Secured with Secured with Tape BLE -Stockings Yes: pt own stockings Treatment Response Procedure Tolerated Well Pain Scale: 0-10 Numeric Is Patient Pain Free? Yes WC - Visit Discharge Discharge Condition Stable Ambulatory Status Ambulatory Transportation Private Auto Medication Reconcilliation completed & No provided to patient/care provider Clinical Summary of Care Provided Yes Notes: pt will dress wound as directed aquacel extra, adaptic, keramax kerlix at home after shower Additional Wound Wound debrided: Left medial ankle/lower extremity Type of Debridement: Excisional debridement Anesthesia Used: 5% Lidocaine Gel Depth: Down to and including healthy tissue and in the subcutaneous layer Percentage of wound debrided: 100 Instrument Used: 5mm curette Tissue Removed: Slough and devitalized tissue Severity: Fat Layer Exposed Amount of bleeding with debridement: Mild Bleeding Controlled with: Pressure Patient tolerated procedure: Patient did not tolerate procedure well Assessment/Plan Assessment/Plan (1) Ulcer of left lower extremity with fat layer exposed: CODE(S): L97.922 - Non-pressure chronic ulcer of unspecified part of left lower leg with fat layer exposed (2) PVD (peripheral vascular disease): CODE(S): I73.9 - Peripheral vascular disease, unspecified (3) Chronic venous insufficiency: CODE(S): I87.2 - Venous insufficiency (chronic) (peripheral) (4) Delayed wound healing: CODE(S): T14.8XXD - Other injury of unspecified body region, subsequent encounter (5) Ulcer of right lower extremity with fat layer exposed: CODE(S): L97.912 - Non-pressure chronic ulcer of unspecified part of rightlower leg with fat layer exposed PLAN: Plan Debridement done as documented above, procedure was well-tolerated. Right lowerextremity with some improvement, left with mild worsening. Increased periwound maceration and increased bilateral lower extremity edema appreciated. As above,has been standing a lot over the last couple of weeks. No significant pain, foul smell, chills or fever reported. Due to increased drainage and periwound maceration, cultures taken, will review. Increased drainage may be due to increased lower extremity edema from increased standing. For now, continue 30 minutes Dakin's soak daily. Apply Bactroban, Aquacel extra to ulcers, Adaptic to surrounding skin and cover with KerraMax care. Consistent use of compression, leg elevation and exercise as tolerated strongly recommended, he voiced understanding. Now scheduled for bilateral lower extremity foam sclerotherapy on 25 March. Increased protein intake, protein supplements, zinc and vitamin D. Optimal diabetes control discussed, last A1C was 5.9. Also advised that he moisturize his skin consistently. His questions were answered, and he was advised to call with any further questions or concerns. Follow-up in2 weeks or sooner if needed. This note was generated with RadioFrame[employer] software. It may contain incorrectwords, spelling, and punctuation that were not noted in checking the note beforesigning. 02/27/25 1621 <Electronically signed by Alice Amaya MD> Cosigner Signature (if applicable): CC: ~ Signed [facility] Work Phone: 1(813) 945-692005-02-2025 Progress note [facility] [address] [place] [address] Progress Note - Wound Care 02/26/25 0930 MR#: [id number] Acct: [id number] Name: RUBEN ALLEN JrJohnnie Rep #:[id number] 04 : 1965 59 From: Alice dickerson MD PCP: Dr. George Frausto MD Status :REG R Location: History of Present Illness Date of Service: 02/26/25 Chief Complaint: Bilateral lower extremity ulcers History of Wound: This is a 54-year-old male presents to wound healing center with a long-standing history of chronic venous insufficiency, chronic venous hypertension, lower extremity edema, lower extremity pain, and chronic left lower extremity ulcer. 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 He is currently wearing graduated compression stockings which are documented karla 20-30 mmHg compression and these are thigh high. He reports great compliance with use. Heis alsohad previous arterial work-up with no intervention recommended by letter, his vascular surgeon. He denies taking nutritional supplementation. [facility] and had a biopsy of the ulcer site. He also was previously treated by infectious disease for various contaminations and infections. He is not antibiotics at this time nor does he have any redness or odor coming from the wound. He denies fever, chill, nausea, vomiting, loss of appetite. 05/18/22: Mr. Allen presents with a new right lower extremity ulceration. He states that this has been present for months and he has been trying to manage itat home without any significant improvement. Opened up months ago, no known precipitating factor. Has been applying wound dressings without any significantimprovement. He reports increased drainage. Denies significant pain. No chills, fever or feeling of unwell. 10/16/24: Mr. Allen presents with a new right lower extremity ulceration. He states that it started out as a very small area that was slipping and then in the last week, became rather extensive. He also reports a foul smell. Has noted increase lower extremity edema. He states that he has been wearing his compression (20 to 30 mmHg) consistently. No chills, fever or otherwise feelingof unwell. Also has a new area on his left lower medial leg. He states that hehas been applying same 1 products to these new areas. Progress of Wound: He reports increased drainage from his left lower extremity ulcer. He has been standing a lot more and was out mushroom hunting as well. He states that he hasbeen wearing his compression consistently. Increased lower extremity edema appreciated. Scheduled for bilateral lower extremity from sclerotherapy on the 25 of March. Objective Data Objective Data Vital Signs: Vital Signs Temp Pulse Resp BP Pulse Ox 96.8 F L 89 18 148/78 H 99 02/26/25 08:08 02/26/25 08:08 02/26/25 08:08 02/26/25 08:08 02/26/25 00:39 Body Mass Index (BMI) 31.4 Charges/Coding Procedures Integumentary 111xxx-113xx: 30344 Lakeisha subq tissue 20 sq cm/< Physical Exam Const alert, oriented x3 and no apparent distress General Appearance: cooperative and comfortable HEENT normocephalic Head and Scalp: normal to inspection, normocephalic and atraumatic Eyes EOMs intact bilaterally Neck full ROM and supple General: normal visual inspection Resp normal respiratory effort Effort and Inspection: able to speak in complete sentences Extremity normal to inspection General Extremity: edema Skin General Skin Exam: dry skin Wounds: wounds noted size Size: See clinical note, bed granulating well, marginswell defined, no odor and open Neuro oriented x3, CN's II-XII intact bilaterally, moves all extremities and no focal motor deficits Psych mental status grossly normal, thought process normal, cooperative and affect normal Debridement Note Debridement Note Wound debrided: Right medial ankle/lower extremity Type of Debridement: Excisional debridement Anesthesia Used: 5% Lidocaine Gel Depth: in the subcutaneous layer Percentage of wound debrided: 100 Instrument Used: 3mm curette Tissue Removed: Slough and devitalized tissue Severity: Fat Layer Exposed Amount of bleeding with debridement: Mild Bleeding Controlled with: Pressure Patient tolerated procedure: Patient tolerated procedure well Post-Debridement Measurements and Additional Note: Post-Debridement Measurements/Treatment KIMBERLY - Nurse 1 - General Ulcer Assessment Start: 02/26/25 08:08 Freq: Status: Active Protocol: SHANTA Activity Type Activity Date Activity User E-sign Co-sign Detail Recorded Client Recorded Date Recorded By Document 02/26/25 08:08 TRIPP [id number] 02/26/25 08:11 TRIPP 02/26/25 08:08 - Today's Visit Information Type of service Follow-up Visit (Physician/SUPERVISOR CHANNEL PROCESS ) Arrival Mode Ambulatory Transfer Assistance None Patient Identification Verified (Name & Yes ) Patient Requires Transmission-Based No Precautions Height and Weight Body Mass Index (BMI) 31.4 BMI Classification Obese Vital Signs Temperature (97.8 F-99.1 F) 96.8 F L Temperature Source Temporal Pulse Rate (60-100) 89 Pulse Location Monitor Respiratory Rate (12-18) 18 Respiratory rate source Observation Blood Pressure (90/60-120/80) 148/78 H Blood Pressure Mean (mm Hg) 101 Source Monitor Position Semi-Fowlers Blood Pressure Location Left Arm History Since Last Visit- (Skip if this is Patient's initial visit) Have you changed medications since your No last visit? Any new allergies or adverse reactions No Had a fall/change in ADL's that may No increase risk of falls Signs or symptoms of abuse and/or No neglect since last visit Have you been in the hospital since your No last visit? Has dressing in place as prescribed Yes Has compression in place as prescribed Yes Has offloadiing in place as prescribed N/A Experienced any changes in pain level or No management Left Footwear Regular Shoe Right Footwear Regular Shoe Pain Scale: 0-10 Numeric Is Patient Pain Free? Yes WC - Nurse 1 - General Ulcer Measurement Start: 02/26/25 08:08 Freq: Status: Active Protocol: Activity Type Activity Date Activity User E-sign Co-sign Detail Recorded Client Recorded Date Recorded By Document 02/26/25 08:08 RB [id number] 02/26/25 08:11 RB 02/26/25 08:08 Wound Center Nurse 1 #18 Right Medial Ankle -Combined with other wound No -Current Size (cm) - Length 0.6 -Current Size (cm) - Width 0.3 -Current Size (cm) - Depth 0.2 -Total Square Cm 0.18 -Tunneling No -Undermining/Tunneling No -Circular Undermining No -Exudate Amt Medium -Exudate Type Serosanguineous -Wound Margin Thickened & Rolled Under -Granulation Amt Medium (34-66%) -Granulation Quality [place] -Slough/Fibrin Yes -Necrosis Amt Medium (34-66%) -Necrotic Tissue Type Adherent Slough -Structure Exposed N/A -Texture (Ara-wound Skin Appearance) Assessed, Scarring -Moisture (Ara-wound Skin Appearance) Assessed,Dry/ Scaly -Color (Ara-wound Skin Appearance) Assessed -Temperature (Ara-wound Skin No Abnormality Appearance) (Pt Warm) -Tenderness on Palpation (Ara-wound No Skin Appearance) -Ulcer Cleansing Wound Cleanser -Foul Odor after Cleansing No -Anesthetic Used 5% Lidocaine Gel #10 Left Medial Ankle -Combined with other wound No -Current Size (cm) - Length 3 -Current Size (cm) - Width 1.4 -Current Size (cm) - Depth 0.4 -Total Square Cm 4.2 -Tunneling No -Undermining/Tunneling No -Circular Undermining No -Exudate Amt Medium -Exudate Type Serosanguineous -Wound Margin Distinct, Outline Attached -Granulation Amt Medium (34-66%) -Granulation Quality [place] -Slough/Fibrin Yes -Necrosis Amt Medium (34-66%) -Necrotic Tissue Type Adherent Slough -Structure Exposed N/A -Texture (Ara-wound Skin Appearance) Assessed, Scarring -Moisture (Ara-wound Skin Appearance) Assessed,Dry/ Scaly -Color (Ara-wound Skin Appearance) Assessed -Temperature (Ara-wound Skin No Abnormality Appearance) (Pt Warm) -Tenderness on Palpation (Ara-wound No Skin Appearance) -Ulcer Cleansing Wound Cleanser -Foul Odor after Cleansing No -Anesthetic Used 5% Lidocaine Gel Lower Limb Edema Present Yes Right Calf (cm) 37.2 Right Ankle (cm) 23 Left Calf (cm) 37.2 Left Ankle (cm) 23.5 WC - Nurse 2 - General Ulcer CM Notes Start: 02/26/25 08:08 Freq: Status: Active Protocol: Activity Type Activity Date Activity User E-sign Co-sign Detail Recorded Client Recorded Date Recorded By Document 02/26/25 08:18 [id number] 02/26/25 08:30 02/26/25 08:18 Wound Center Nurse 2 #18 Right Medial Ankle -Time 08:19 -Correct Patient Yes -Correct Side, Site, Position Yes -Correct Procedure Yes -Procedure Performed Yes -Type of Procedure Debridement -Clinical Debridement Subcutaneous -Tissue Removed Subcutaneous -Post Debridement (cm) - Length 1.2 -Post Debridement (cm) - Width 0.5 -Post Debridement (cm) - Depth 0.1 -Total Square (Post) (cm) 0.60 -Area of Debridement (cm) - Length 1.2 -Area of Debridement (cm) - Width 0.5 -Total Square (Area) (cm) 0.60 -Tunneling No -Undermining/Tunneling No -Circular Undermining No -Wound/Ulcer Outcome Not Healed -Ulcer Cleansing Rinsed/ Irrigated with Saline -Foul Odor after Cleansing No -Bioengineered Tissue No -Bleeding Controlled with Pressure -Treatment Response Procedure Tolerated Well -Offloading No -Debridement - Subq, 1st 20sq cm No #10 Left Medial Ankle -Time 08:19 -Correct Patient Yes -Correct Side, Site, Position Yes -Correct Procedure Yes -Procedure Performed Yes -Type of Procedure Debridement -Clinical Debridement Subcutaneous -Tissue Removed Subcutaneous -Post Debridement (cm) - Length 3.2 -Post Debridement (cm) - Width 1.3 -Post Debridement (cm) - Depth 0.3 -Total Square (Post) (cm) 4.16 -Area of Debridement (cm) - Length 3.2 -Area of Debridement (cm) - Width 1.3 -Total Square (Area) (cm) 4.16 -Tunneling No -Undermining/Tunneling No -Circular Undermining No -Wound/Ulcer Outcome Not Healed -Ulcer Cleansing Rinsed/ Irrigated with Saline -Foul Odor after Cleansing No -Bioengineered Tissue No -Bleeding Controlled with Pressure -Treatment Response Procedure Tolerated Well -Offloading No -Debridement - Subq, 1st 20sq cm Yes Pain Scale: 0-10 Numeric Is Patient Pain Free? Yes WC - Nurse 3 - General Ulcer D/C NN Start: 02/26/25 08:08 Freq: Status: Active Protocol: Activity Type Activity Date Activity User E-sign Co-sign Detail Recorded Client Recorded Date Recorded By Document 02/26/25 08:39 RB [id number] 02/26/25 08:41 RB 02/26/25 08:39 Wound Care Center Nurse 3 #18 Right Medial Ankle -Other Dressing abd -Primary Dressing Covered/Secured with Secured with Tape #10 Left Medial Ankle -Other Dressing abd -Primary Dressing Covered/Secured with Secured with Tape BLE -Stockings Yes: pt own stockings Treatment Response Procedure Tolerated Well Pain Scale: 0-10 Numeric Is Patient Pain Free? Yes WC - Visit Discharge Discharge Condition Stable Ambulatory Status Ambulatory Transportation Private Auto Medication Reconcilliation completed & No provided to patient/care provider Clinical Summary of Care Provided Yes Notes: pt will dress wound as directed aquacel extra, adaptic, keramax kerlix at home after shower Additional Wound Wound debrided: Left medial ankle/lower extremity Type of Debridement: Excisional debridement Anesthesia Used: 5% Lidocaine Gel Depth: Down to and including healthy tissue and in the subcutaneous layer Percentage of wound debrided: 100 Instrument Used: 5mm curette Tissue Removed: Slough and devitalized tissue Severity: Fat Layer Exposed Amount of bleeding with debridement: Mild Bleeding Controlled with: Pressure Patient tolerated procedure: Patient did not tolerate procedure well Assessment/Plan Assessment/Plan (1) Ulcer of left lower extremity with fat layer exposed: CODE(S): L97.922 - Non-pressure chronic ulcer of unspecified part of left lower leg with fat layer exposed (2) PVD (peripheral vascular disease): CODE(S): I73.9 - Peripheral vascular disease, unspecified (3) Chronic venous insufficiency: CODE(S): I87.2 - Venous insufficiency (chronic) (peripheral) (4) Delayed wound healing: CODE(S): T14.8XXD - Other injury of unspecified body region, subsequent encounter (5) Ulcer of right lower extremity with fat layer exposed: CODE(S): L97.912 - Non-pressure chronic ulcer of unspecified part of rightlower leg with fat layer exposed PLAN: Plan Debridement done as documented above, procedure was well-tolerated. Right lowerextremity with some improvement, left with mild worsening. Increased periwound maceration and increased bilateral lower extremity edema appreciated. As above,has been standing a lot over the last couple of weeks. No significant pain, foul smell, chills or fever reported. Due to increased drainage and periwound maceration, cultures taken, will review. Increased drainage may be due to increased lower extremity edema from increased standing. For now, continue 30 minutes Dakin's soak daily. Apply Bactroban, Aquacel extra to ulcers, Adaptic to surrounding skin and cover with KerraMax care. Consistent use of compression , leg elevation and exercise as tolerated strongly recommended, he voiced understanding. Now scheduled for bilateral lower extremity foam sclerotherapy on 25 March. Increased protein intake, protein supplements, zinc and vitamin D. Optimal diabetes control discussed, last A1C was 5.9. Also advised that he moisturize his skin consistently. His questions were answered, and he was advised to call withany further questions or concerns. Follow-up in2 weeks or sooner if needed. This note was generated with IntelliDOT dictation software. It may contain incorrectwords, spelling, and punctuation that were not noted in checking the note beforesigning. 02/27/25 1621 Cosigner Signature (if applicable): CC: ~ Signed [facility]03-20-2025 Progress note Author Alice Amaya [facility] Note Date/Time January 15, 2025 1:0 0pm [facility] [address] [place] [address] Progress Note - Wound Care 01/15/25 0844 MR#: [id number] Acct: [id number] Name: RUBEN ALLEN Jr. Rep #:[id number] 01 : 1965 59 From: Alice dickerson MD PCP: Dr. George Frausto MD Status :REG RCR Location: History of Present Illness Date of Service: 01/15/25 Chief Complaint: ulcers to the left lower leg History of Wound: This is a 54-year-old male presents to wound healing center with a long-standing history of chronic venous insufficiency, chronic venous hypertension, lower extremity edema, lower extremity pain, and chronic left lower extremity ulcer. 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 He is currently wearing graduated compression stockings which are documented to be 20-30 mmHg compression and these are thigh high. He reports great compliance with use. Heis also had previous arterial work-up with no intervention recommended by letter, his vascular surgeon. He denies taking nutritional supplementation. [facility] and had a biopsy of the ulcer site. He also was previously treated by infectious disease for various contaminations and infections. He is not antibiotics at this time nor does he have any redness or odor coming from the wound. He denies fever, chill, nausea, vomiting, loss of appetite. 05/18/22: Mr. Allen presents with a new right lower extremity ulceration. He states that this has been present for months and he has been trying to manage itat home without any significant improvement. Opened up months ago, no known precipitating factor. Has been applying wound dressings without any significantimprovement. He reports increased drainage. Denies significant pain. No chills, fever or feeling of unwell. 10/16/24: Mr. Allen presents with a new right lower extremity ulceration. He states that it started out as a very small area that was slipping and then in the last week, became rather extensive. He also reports a foul smell. Has noted increase lower extremity edema. He states that he has been wearing his compression (20 to 30 mmHg) consistently. No chills, fever or otherwise feelingof unwell. Also has a new area on his left lower medial leg. He states that hehas been applying same 1 products to these new areas. Progress of Wound: No acute concerns at this time. He states that he has been doing dressing changes as recommended. Seen by vascular few weeks ago and plan is for an ablation. Objective Data Objective Data Vital Signs: Vital Signs Temp Pulse Resp BP Pulse Ox O2 Del Method 97.5 F L 92 18 159/69 H 99 Room Air 01/15/25 08:23 01/15/25 08:23 01/15/25 08:23 01/15/25 08:23 12/27/24 02:11 01/01/25 08:04 Oxygen Delivery Method Room Air Body Mass Index (BMI) 31.4 Charges/Coding Procedures Integumentary 111xxx-113xx: 96992 Lakeisha subq tissue 20 sq cm/< Physical Exam Const alert, oriented x3 and no apparent distress General Appearance: cooperative and comfortable HEENT normocephalic Head and Scalp: normal to inspection, normocephalic and atraumatic Eyes EOMs intact bilaterally Neck full ROM and supple General: normal visual inspection Resp normal respiratory effort Effort and Inspection: able to speak in complete sentences Extremity normal to inspection General Extremity: edema Skin Wounds: wounds noted size Size: See clinical note, bed granulating well, marginswell defined, no odor and open Neuro oriented x3, CN's II-XII intact bilaterally, moves all extremities and no focal motor deficits Psych mental status grossly normal, thought process normal, cooperative and affect normal Debridement Note Debridement Note Wound debrided: Right medial ankle/lower extremity Type of Debridement: Excisional debridement Anesthesia Used: 5% Lidocaine Gel Depth: Down to and including healthy tissue and in the subcutaneous layer Percentage of wound debrided: 100 Instrument Used: 3mm curette Tissue Removed: Slough and devitalized tissue Severity: Fat Layer Exposed Amount of bleeding with debridement: Mild Bleeding Controlled with: Pressure Patient tolerated procedure: Patient tolerated procedure well Post-Debridement Measurements and Additional Note: Post-Debridement Measurements/Treatment - Nurse 1 - General Ulcer Assessment Start: 01/01/25 08:04 Freq: Status: Active Protocol: SHANTA Activity Type Activity Date Activity User E-sign Co-sign Detail Recorded Client Recorded Date Recorded By Document 01/01/25 08:04 KW [id number] 01/01/25 08:11 KW Document 01/15/25 08:23 RB [id number] 01/15/25 08:26 RB 01/01/25 01/15/25 08:04 08:23 - Today's Visit Information Type of service Follow-up Visit Follow-up Visit (Physician/SUPERVISOR CHANNEL PROCESS (Physician/SUPERVISOR CHANNEL PROCESS ) ) Arrival Mode Ambulatory Ambulatory Transfer Assistance None Patient Identification Verified (Name & Yes Yes ) Patient Requires Transmission-Based No Precautions Height and Weight Body Mass Index (BMI) 31.4 31.4 BMI Classification Obese Obese Vital Signs Temperature (97.8 F-99.1 F) 96.0 F L 97.5 F L Temperature Source Temporal Temporal Pulse Rate (60-100) 92 92 Pulse Location Monitor Monitor Respiratory Rate (12-18) 18 18 Respiratory rate source Observation Observation Oxygen Delivery Method Room Air Blood Pressure (90/60-120/80) 156/79 H 159/69 H Blood Pressure Mean (mm Hg) 104 99 Source Monitor Monitor Position Semi-Fowlers Semi-Fowlers Blood Pressure Location Left Arm Left Arm History Since Last Visit- (Skip if this is Patient's initial visit) Have you changed medications since your No No last visit? Any new allergies or adverse reactions No No Had a fall/change in ADL's that may No No increase risk of falls Signs or symptoms of abuse and/or No No neglect since last visit Have you been in the hospital since your No No last visit? Has dressing in place as prescribed Yes Yes Has compression in place as prescribed Yes Yes Has offloadiing in place as prescribed N/A N/A Experienced any changes in pain level or No No management Left Footwear Regular Shoe Regular Shoe Right Footwear Regular Shoe Regular Shoe Pain Scale: 0-10 Numeric Is Patient Pain Free? Yes Yes WC - Nurse 1 - General Ulcer Measurement Start: 01/01/25 08:04 Freq: Status: Active Protocol: Activity Type Activity Date Activity User E-sign Co-sign Detail Recorded Client Recorded Date Recorded By Document 01/01/25 08:04 KW [id number] 01/01/25 08:11 KW Document 01/15/25 08:23 RB [id number] 01/15/25 08:26 RB 01/01/25 01/15/25 08:04 08:23 Wound Center Nurse 1 #18 Right Medial Ankle -Combined with other wound No -Current Size (cm) - Length 0.6 0.8 -Current Size (cm) - Width 0.6 0.4 -Current Size (cm) - Depth 0.1 0.2 -Total Square Cm 0.36 0.32 -Date of Last Picture (Recall this 01/01/25 field) -Photo Taken Yes -Tunneling No -Undermining/Tunneling No -Circular Undermining No -Exudate Amt Small Medium -Exudate Type Serosanguineous Serosanguineous -Wound Margin Distinct, Thickened Outline Attached -Granulation Amt Large (67-100%) Medium (34-66%) -Granulation Quality Red [place] -Slough/Fibrin Yes -Necrosis Amt Small (1-33%) Medium (34-66%) -Necrotic Tissue Type Adherent Slough Adherent Slough -Structure Exposed N/A -Texture (Ara-wound Skin Appearance) Assessed,Callus Assessed -Moisture (Ara-wound Skin Appearance) Assessed,Dry/ Dry/Scaly Scaly -Color (Ara-wound Skin Appearance) Assessed Assessed -Temperature (Ara-wound Skin No Abnormality No Abnormality Appearance) (Pt Warm) (Pt Warm) -Tenderness on Palpation (Ara-wound No No Skin Appearance) -Ulcer Cleansing Rinsed/ Wound Cleanser Irrigated with Saline -Foul Odor after Cleansing No No -Anesthetic Used 5% Lidocaine 5% Lidocaine Gel Gel #10 Left Medial Ankle -Combined with other wound No -Current Size (cm) - Length 2.8 2.8 -Current Size (cm) - Width 1 1 -Current Size (cm) - Depth 0.2 0.3 -Total Square Cm 2.8 2.8 -Date of Last Picture (Recall this 01/01/25 field) -Photo Taken Yes -Tunneling No -Undermining/Tunneling No -Circular Undermining No -Exudate Amt Small Medium -Exudate Type Serosanguineous Serosanguineous -Wound Margin Distinct, Thickened Outline Attached -Granulation Amt Large (67-100%) Medium (34-66%) -Granulation Quality [place],Red [place] -Slough/Fibrin Yes -Necrosis Amt Small (1-33%) Medium (34-66%) -Necrotic Tissue Type Adherent Slough Adherent Slough -Structure Exposed N/A -Texture (Ara-wound Skin Appearance) Assessed Assessed -Moisture (Ara-wound Skin Appearance) Assessed,Dry/ Dry/Scaly Scaly -Color (Ara-wound Skin Appearance) Assessed Assessed -Temperature (Ara-wound Skin No Abnormality No Abnormality Appearance) (Pt Warm) (Pt Warm) -Tenderness on Palpation (Ara-wound No No Skin Appearance) -Ulcer Cleansing Rinsed/ Wound Cleanser Irrigated with Saline -Foul Odor after Cleansing No No -Anesthetic Used 5% Lidocaine 5% Lidocaine Gel Gel Lower Limb Edema Present Yes Right Calf (cm) 31.2 Right Ankle (cm) 22.8 Left Calf (cm) 36.5 Left Ankle (cm) 23.8 WC - Nurse 2 - General Ulcer CM Notes Start: 01/01/25 08:04 Freq: Status: Active Protocol: Activity Type Activity Date Activity User E-sign Co-sign Detail Recorded Client Recorded Date Recorded By Document 01/01/25 08:24 GM [id number] 01/01/25 08:33 GM Edit Result 01/01/25 08:24 GM (1) [id number] 01/01/25 13:47 GM Document 01/15/25 08:32 GM [id number] 01/15/25 08:40 GM (1) #18 Right Medial Ankle - Bleeding Controlled with Pressure => Pressure,Silver => Nitrate 01/01/25 01/15/25 08:24 08:32 Wound Center Nurse 2 #18 Right Medial Ankle -Time 08:25 08:32 -Correct Patient Yes Yes -Correct Side, Site, Position Yes Yes -Correct Procedure Yes Yes -Procedure Performed Yes Yes -Type of Procedure Debridement Debridement -Clinical Debridement Subcutaneous Subcutaneous -Tissue Removed Subcutaneous Subcutaneous -Post Debridement (cm) - Length 2.4 1.2 -Post Debridement (cm) - Width 0.8 0.5 -Post Debridement (cm) - Depth 0.1 0.1 -Total Square (Post) (cm) 1.92 0.60 -Area of Debridement (cm) - Length 2.4 1.2 -Area of Debridement (cm) - Width 0.8 0.5 -Total Square (Area) (cm) 1.92 0.60 -Tunneling No No -Undermining/Tunneling No No -Circular Undermining No No -Wound/Ulcer Outcome Not Healed Not Healed -Ulcer Cleansing Rinsed/ Rinsed/ Irrigated with Irrigated with Saline Saline -Foul Odor after Cleansing No No -Bioengineered Tissue No No -Bleeding Controlled with Pressure,Silver Pressure Nitrate -Treatment Response Procedure Procedure Tolerated Well Tolerated Well -Debridement - Open, 1st 20sq cm No -Debridement - Subq, 1st 20sq cm No No -Debridement - Muscle / Fascia, 1st No 20sq cm -Debridement - Bone, 1st 20sq cm No #10 Left Medial Ankle -Time 08:25 08:33 -Correct Patient Yes Yes -Correct Side, Site, Position Yes Yes -Correct Procedure Yes Yes -Procedure Performed Yes Yes -Type of Procedure Debridement Debridement -Clinical Debridement Subcutaneous Subcutaneous -Tissue Removed Subcutaneous Subcutaneous -Post Debridement (cm) - Length 3.0 3.1 -Post Debridement (cm) - Width 1.2 1.2 -Post Debridement (cm) - Depth 0.3 0.3 -Total Square (Post) (cm) 3.60 3.72 -Area of Debridement (cm) - Length 3.0 3.1 -Area of Debridement (cm) - Width 1.2 1.2 -Total Square (Area) (cm) 3.60 3.72 -Tunneling No No -Undermining/Tunneling No No -Circular Undermining No No -Wound/Ulcer Outcome Not Healed Not Healed -Ulcer Cleansing Rinsed/ Rinsed/ Irrigated with Irrigated with Saline Saline -Foul Odor after Cleansing No No -Bioengineered Tissue No No -Bleeding Controlled with Pressure Pressure -Treatment Response Procedure Procedure Tolerated Well Tolerated Well -Offloading No -Debridement - Subq, 1st 20sq cm Yes Yes Pain Scale: 0-10 Numeric Is Patient Pain Free? Yes Yes - Nurse 3 - General Ulcer D/C NN Start: 01/01/25 08:04 Freq: Status: Active Protocol: Activity Type Activity Date Activity User E-sign Co-sign Detail Recorded Client Recorded Date Recorded By Document 01/01/25 08:50 DL [id number] 01/01/25 08:53 DL 01/01/25 08:50 Wound Care Center Nurse 3 #18 Right Medial Ankle -Ulcer Cleansing dakins -Primary Dressing Applied NonAdherent Contact Layer -Other Dressing Keramax/aquacel Ex -Primary Dressing Covered/Secured with Secured with Tape #10 Left Medial Ankle -Ulcer Cleansing dakins -Primary Dressing Applied NonAdherent Contact Layer -Other Dressing aquacel Ex/ keramax -Primary Dressing Covered/Secured with Secured with Tape BLE -Stockings Yes Pain Scale: 0-10 Numeric Is Patient Pain Free? Yes - Visit Discharge Discharge Condition Stable Ambulatory Status Ambulatory Transportation Private Auto Additional Wound Wound debrided: Left medial ankle/lower extremity Type of Debridement: Excisional debridement Anesthesia Used: 5% Lidocaine Gel Depth: Down to and including healthy tissue and in the subcutaneous layer Percentage of wound debrided: 100 Instrument Used: 5mm curette Tissue Removed: Slough and devitalized tissue Severity: Fat Layer Exposed Amount of bleeding with debridement: Mild Bleeding Controlled with: Pressure Patient tolerated procedure: Patient tolerated procedure well Assessment/Plan Assessment/Plan (1) Ulcer of left lower extremity with fat layer exposed: CODE(S): L97.922 - Non-pressure chronic ulcer of unspecified part of left lower leg with fat layer exposed (2) PVD (peripheral vascular disease): CODE(S): I73.9 - Peripheral vascular disease, unspecified (3) Chronic venous insufficiency: CODE(S): I87.2 - Venous insufficiency (chronic) (peripheral) (4) Delayed wound healing: CODE(S): T14.8XXD - Other injury of unspecified body region, subsequent encounter (5) Ulcer of right lower extremity with fat layer exposed: CODE(S): L97.912 - Non-pressure chronic ulcer of unspecified part of rightlower leg with fat layer exposed PLAN: Plan Debridement done as documented above, procedure was well-tolerated. Overall, stable. No acute concerns at this time. Right lower extremity with some improvement, left, stable. As above, was seen by vascular on the 6th and per documentation, -right ankle wound directly associated with varicosities originating from popliteal fossa, no perforators; would potentially be amendableto direct foam sclero -left ankle wound directly associated with varicosities and adjacent atomic physics teacher; atomic physics teacher direct ablation vs foam vs both. Continue 30 minutes Dakin's soak daily. Apply Bactroban, Aquacel extra to ulcers, Adaptic to surrounding skin and cover with KerraMax care. Continue use of compression stockings, leg elevation and exercise. Increased protein intake,protein supplements, zinc and vitamin D. Optimal diabetes control discussed, last A1C was 5.9. His questions were answered, and he was advised to call with any further questions or concerns. Follow-up in 2 weeks or sooner if needed. This note was generated with [employer] software. It may contain incorrectwords, spelling, and punctuation that were not noted in checking the note beforesigning. 01/15/25 1300 <Electronically signed by Alice Amaya MD> Cosigner Signature (if applicable): CC: ~ Signed [facility] Work Phone: [phone] Progress note [facility] [address] [place] [address] Progress Note - Wound Care 01/15/25 0844 MR#: [id number] Acct: [id number] Name: RUBEN ALLEN Jr. Rep #:[id number] 01 : 1965 59 From: Alice dickerson MD PCP: Dr. George Frausto MD Status :REG RCR Location: History of Present Illness Date of Service: 01/15/25 Chief Complaint: ulcers to the left lower leg History of Wound: This is a 54-year-old male presents to wound healing center with a long-standing history of chronic venous insufficiency, chronic venous hypertension, lower extremity edema, lower extremity pain, and chronic left lower extremity ulcer. 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 He is currently wearing graduated compression stockings which are documented karla 20-30 mmHg compression and these are thigh high. He reports great compliance with use. Heis alsohad previous arterial work-up with no intervention recommended by letter, his vascular surgeon. He denies taking nutritional supplementation. [facility] and had a biopsy of the ulcer site. He also was previously treated by infectious disease for various contaminations and infections. He is not antibiotics at this time nor does he have any redness or odor coming from the wound. He denies fever, chill, nausea, vomiting, loss of appetite. 05/18/22: Mr. Allen presents with a new right lower extremity ulceration. He states that this has been present for months and he has been trying to manage itat home without any significant improvement. Opened up months ago, no known precipitating factor. Has been applying wound dressings without any significantimprovement. He reports increased drainage. Denies significant pain. No chills, fever or feeling of unwell. 10/16/24: Mr. Allen presents with a new right lower extremity ulceration. He states that it started out as a very small area that was slipping and then in the last week, became rather extensive. He also reports a foul smell. Has noted increase lower extremity edema. He states that he has been wearing his compression (20 to 30 mmHg) consistently. No chills, fever or otherwise feelingof unwell. Also has a new area on his left lower medial leg. He states that hehas been applying same 1 products to these new areas. Progress of Wound: No acute concerns at this time. He states that he has been doing dressing changes as recommended. Seen by vascular few weeks ago and plan is for an ablation. Objective Data Objective Data Vital Signs: Vital Signs Temp Pulse Resp BP Pulse Ox O2 Del Method 97.5 F L 92 18 159/69 H 99 Room Air 01/15/25 08:23 01/15/25 08:23 01/15/25 08:23 01/15/25 08:23 12/27/24 02:11 01/01/25 08:04 Oxygen Delivery Method Room Air Body Mass Index (BMI) 31.4 Charges/Coding Procedures Integumentary 111xxx-113xx: 30506 Lakeisha subq tissue 20 sq cm/< Physical Exam Const alert, oriented x3 and no apparent distress General Appearance: cooperative and comfortable HEENT normocephalic Head and Scalp: normal to inspection, normocephalic and atraumatic Eyes EOMs intact bilaterally Neck full ROM and supple General: normal visual inspection Resp normal respiratory effort Effort and Inspection: able to speak in complete sentences Extremity normal to inspection General Extremity: edema Skin Wounds: wounds noted size Size: See clinical note, bed granulating well, marginswell defined, no odor and open Neuro oriented x3, CN's II-XII intact bilaterally, moves all extremities and no focal motor deficits Psych mental status grossly normal, thought process normal, cooperative and affect normal Debridement Note Debridement Note Wound debrided: Right medial ankle/lower extremity Type of Debridement: Excisional debridement Anesthesia Used: 5% Lidocaine Gel Depth: Down to and including healthy tissue and in the subcutaneous layer Percentage of wound debrided: 100 Instrument Used: 3mm curette Tissue Removed: Slough and devitalized tissue Severity: Fat Layer Exposed Amount of bleeding with debridement: Mild Bleeding Controlled with: Pressure Patient tolerated procedure: Patient tolerated procedure well Post-Debridement Measurements and Additional Note: Post-Debridement Measurements/Treatment WC - Nurse 1 - General Ulcer Assessment Start: 01/01/25 08:04 Freq: Status: Active Protocol: KIMBERLY.MEHDI Activity Type Activity Date Activity User E-sign Co-sign Detail Recorded Client Recorded Date Recorded By Document 01/01/25 08:04 KW [id number] 01/01/25 08:11 KW Document 01/15/25 08:23 RB [id number] 01/15/25 08:26 RB 01/01/25 01/15/25 08:04 08:23 - Today's Visit Information Type of service Follow-up Visit Follow-up Visit (Physician/SUPERVISOR CHANNEL PROCESS (Physician/SUPERVISOR CHANNEL PROCESS ) ) Arrival Mode Ambulatory Ambulatory Transfer Assistance None Patient Identification Verified (Name & Yes Yes ) Patient Requires Transmission-Based No Precautions Height and Weight Body Mass Index (BMI) 31.4 31.4 BMI Classification Obese Obese Vital Signs Temperature (97.8 F-99.1 F) 96.0 F L 97.5 F L Temperature Source Temporal Temporal Pulse Rate (60-100) 92 92 Pulse Location Monitor Monitor Respiratory Rate (12-18) 18 18 Respiratory rate source Observation Observation Oxygen Delivery Method Room Air Blood Pressure (90/60-120/80) 156/79 H 159/69 H Blood Pressure Mean (mm Hg) 104 99 Source Monitor Monitor Position Semi-Fowlers Semi-Fowlers Blood Pressure Location Left Arm Left Arm History Since Last Visit- (Skip if this is Patient's initial visit) Have you changed medications since your No No last visit? Any new allergies or adverse reactions No No Had a fall/change in ADL's that may No No increase risk of falls Signs or symptoms of abuse and/or No No neglect since last visit Have you been in the hospital since your No No last visit? Has dressing in place as prescribed Yes Yes Has compression in place as prescribed Yes Yes Has offloadiing in place as prescribed N/A N/A Experienced any changes in pain level or No No management Left Footwear Regular Shoe Regular Shoe Right Footwear Regular Shoe Regular Shoe Pain Scale: 0-10 Numeric Is Patient Pain Free? Yes Yes - Nurse 1 - General Ulcer Measurement Start: 01/01/25 08:04 Freq: Status: Active Protocol: Activity Type Activity Date Activity User E-sign Co-sign Detail Recorded Client Recorded Date Recorded By Document 01/01/25 08:04 KW [id number] 01/01/25 08:11 KW Document 01/15/25 08:23 RB [id number] 01/15/25 08:26 RB 01/01/25 01/15/25 08:04 08:23 Wound Center Nurse 1 #18 Right Medial Ankle -Combined with other wound No -Current Size (cm) - Length 0.6 0.8 -Current Size (cm) - Width 0.6 0.4 -Current Size (cm) - Depth 0.1 0.2 -Total Square Cm 0.36 0.32 -Date of Last Picture (Recall this 01/01/25 field) -Photo Taken Yes -Tunneling No -Undermining/Tunneling No -Circular Undermining No -Exudate Amt Small Medium -Exudate Type Serosanguineous Serosanguineous -Wound Margin Distinct, Thickened Outline Attached -Granulation Amt Large (67-100%) Medium (34-66%) -Granulation Quality Red [place] -Slough/Fibrin Yes -Necrosis Amt Small (1-33%) Medium (34-66%) -Necrotic Tissue Type Adherent Slough Adherent Slough -Structure Exposed N/A -Texture (Ara-wound Skin Appearance) Assessed,Callus Assessed -Moisture (Ara-wound Skin Appearance) Assessed,Dry/ Dry/Scaly Scaly -Color (Ara-wound Skin Appearance) Assessed Assessed -Temperature (Ara-wound Skin No Abnormality No Abnormality Appearance) (Pt Warm) (Pt Warm) -Tenderness on Palpation (Ara-wound No No Skin Appearance) -Ulcer Cleansing Rinsed/ Wound Cleanser Irrigated with Saline -Foul Odor after Cleansing No No -Anesthetic Used 5% Lidocaine 5% Lidocaine Gel Gel #10 Left Medial Ankle -Combined with other wound No -Current Size (cm) - Length 2.8 2.8 -Current Size (cm) - Width 1 1 -Current Size (cm) - Depth 0.2 0.3 -Total Square Cm 2.8 2.8 -Date of Last Picture (Recall this 01/01/25 field) -Photo Taken Yes -Tunneling No -Undermining/Tunneling No -Circular Undermining No -Exudate Amt Small Medium -Exudate Type Serosanguineous Serosanguineous -Wound Margin Distinct, Thickened Outline Attached -Granulation Amt Large (67-100%) Medium (34-66%) -Granulation Quality [place],Red [place] -Slough/Fibrin Yes -Necrosis Amt Small (1-33%) Medium (34-66%) -Necrotic Tissue Type Adherent Slough Adherent Slough -Structure Exposed N/A -Texture (Ara-wound Skin Appearance) Assessed Assessed -Moisture (Ara-wound Skin Appearance) Assessed,Dry/ Dry/Scaly Scaly -Color (Ara-wound Skin Appearance) Assessed Assessed -Temperature (Ara-wound Skin No Abnormality No Abnormality Appearance) (Pt Warm) (Pt Warm) -Tenderness on Palpation (Ara-wound No No Skin Appearance) -Ulcer Cleansing Rinsed/ Wound Cleanser Irrigated with Saline -Foul Odor after Cleansing No No -Anesthetic Used 5% Lidocaine 5% Lidocaine Gel Gel Lower Limb Edema Present Yes Right Calf (cm) 31.2 Right Ankle (cm) 22.8 Left Calf (cm) 36.5 Left Ankle (cm) 23.8 WC - Nurse 2 - General Ulcer CM Notes Start: 01/01/25 08:04 Freq: Status: Active Protocol: Activity Type Activity Date Activity User E-sign Co-sign Detail Recorded Client Recorded Date Recorded By Document 01/01/25 08:24 GM [id number] 01/01/25 08:33 GM Edit Result 01/01/25 08:24 GM (1) [id number] 01/01/25 13:47 GM Document 01/15/25 08:32 GM [id number] 01/15/25 08:40 GM (1) #18 Right Medial Ankle - Bleeding Controlled with Pressure => Pressure,Silver => Nitrate 01/01/25 01/15/25 08:24 08:32 Wound Center Nurse 2 #18 Right Medial Ankle -Time 08:25 08:32 -Correct Patient Yes Yes -Correct Side, Site, Position Yes Yes -Correct Procedure Yes Yes -Procedure Performed Yes Yes -Type of Procedure Debridement Debridement -Clinical Debridement Subcutaneous Subcutaneous -Tissue Removed Subcutaneous Subcutaneous -Post Debridement (cm) - Length 2.4 1.2 -Post Debridement (cm) - Width 0.8 0.5 -Post Debridement (cm) - Depth 0.1 0.1 -Total Square (Post) (cm) 1.92 0.60 -Area of Debridement (cm) - Length 2.4 1.2 -Area of Debridement (cm) - Width 0.8 0.5 -Total Square (Area) (cm) 1.92 0.60 -Tunneling No No -Undermining/Tunneling No No -Circular Undermining No No -Wound/Ulcer Outcome Not Healed Not Healed -Ulcer Cleansing Rinsed/ Rinsed/ Irrigated with Irrigated with Saline Saline -Foul Odor after Cleansing No No -Bioengineered Tissue No No -Bleeding Controlled with Pressure,Silver Pressure Nitrate -Treatment Response Procedure Procedure Tolerated Well Tolerated Well -Debridement - Open, 1st 20sq cm No -Debridement - Subq, 1st 20sq cm No No -Debridement - Muscle / Fascia, 1st No 20sq cm -Debridement - Bone, 1st 20sq cm No #10 Left Medial Ankle -Time 08: 08:33 -Correct Patient Yes Yes -Correct Side, Site, Position Yes Yes -Correct Procedure Yes Yes -Procedure Performed Yes Yes -Type of Procedure Debridement Debridement -Clinical Debridement Subcutaneous Subcutaneous -Tissue Removed Subcutaneous Subcutaneous -Post Debridement (cm) - Length 3.0 3.1 -Post Debridement (cm) - Width 1.2 1.2 -Post Debridement (cm) - Depth 0.3 0.3 -Total Square (Post) (cm) 3.60 3.72 -Area of Debridement (cm) - Length 3.0 3.1 -Area of Debridement (cm) - Width 1.2 1.2 -Total Square (Area) (cm) 3.60 3.72 -Tunneling No No -Undermining/Tunneling No No -Circular Undermining No No -Wound/Ulcer Outcome Not Healed Not Healed -Ulcer Cleansing Rinsed/ Rinsed/ Irrigated with Irrigated with Saline Saline -Foul Odor after Cleansing No No -Bioengineered Tissue No No -Bleeding Controlled with Pressure Pressure -Treatment Response Procedure Procedure Tolerated Well Tolerated Well -Offloading No -Debridement - Subq, 1st 20sq cm Yes Yes Pain Scale: 0-10 Numeric Is Patient Pain Free? Yes Yes WC - Nurse 3 - General Ulcer D/C NN Start: 01/01/25 08:04 Freq: Status: Active Protocol: Activity Type Activity Date Activity User E-sign Co-sign Detail Recorded Client Recorded Date Recorded By Document 01/01/25 08:50 DL [id number] 01/01/25 08:53 DL 01/01/25 08:50 Wound Care Center Nurse 3 #18 Right Medial Ankle -Ulcer Cleansing dakins -Primary Dressing Applied NonAdherent Contact Layer -Other Dressing Keramax/aquacel Ex -Primary Dressing Covered/Secured with Secured with Tape #10 Left Medial Ankle -Ulcer Cleansing dakins -Primary Dressing Applied NonAdherent Contact Layer -Other Dressing aquacel Ex/ keramax -Primary Dressing Covered/Secured with Secured with Tape BLE -Stockings Yes Pain Scale: 0-10 Numeric Is Patient Pain Free? Yes WC - Visit Discharge Discharge Condition Stable Ambulatory Status Ambulatory Transportation Private Auto Additional Wound Wound debrided: Left medial ankle/lower extremity Type of Debridement: Excisional debridement Anesthesia Used: 5% Lidocaine Gel Depth: Down to and including healthy tissue and in the subcutaneous layer Percentage of wound debrided: 100 Instrument Used: 5mm curette Tissue Removed: Slough and devitalized tissue Severity: Fat Layer Exposed Amount of bleeding with debridement: Mild Bleeding Controlled with: Pressure Patient tolerated procedure: Patient tolerated procedure well Assessment/Plan Assessment/Plan (1) Ulcer of left lower extremity with fat layer exposed: CODE(S): L97.922 - Non-pressure chronic ulcer of unspecified part of left lower leg with fat layer exposed (2) PVD (peripheral vascular disease): CODE(S): I73.9 - Peripheral vascular disease, unspecified (3) Chronic venous insufficiency: CODE(S): I87.2 - Venous insufficiency (chronic) (peripheral) (4) Delayed wound healing: CODE(S): T14.8XXD - Other injury of unspecified body region, subsequent encounter (5) Ulcer of right lower extremity with fat layer exposed: CODE(S): L97.912 - Non-pressure chronic ulcer of unspecified part of rightlower leg with fat layer exposed PLAN: Plan Debridement done as documented above, procedure was well-tolerated. Overall, stable. No acute concerns at this time. Right lower extremity with some improvement, left, stable. 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 Continue 30 minutes Dakin's soak daily. Apply Bactroban, Aquacel extra to ulcers, Adaptic to surrounding skin and cover with KerraMax care. Continue use of compression stockings, leg elevation and exercise. Increased protein intake,protein supplements, zinc and vitamin D. Optimal diabetes control di scussed, last A1C was 5.9. His questions were answered, and he was advised to call with any furtherquestions or concerns. Follow-up in 2 weeks or sooner if needed. This note was generated with IntelliDOT dictation software. It may contain incorrectwords, spelling, and punctuation that were not noted in checking the note beforesigning. 01/15/25 1300 Cosigner Signature (if applicable): CC: ~ Signed [facility]03-06-2025 Evaluation note* Diagnosis Onset Date Resolution Status Admit Date Venous stasis ulcer of ankle chronic January 01, 2025 1:44pm Ulcer of right lower extremi ty with fat layer exposed acute December 8:00am Chronic venous insufficiency chronic January 15, 2025 8:00am Delayed wound healing chronic Dec 8:00am PVD (peripheral vascular disease) chronic January 15, 2025 8:00am Ulcer of left lower extremit y with fat layer exposed chronic December 8:00am Ulcer of right lower extremi ty with fat layer exposed acute January 8:00am Chronic venous insufficiency chronic February 12, 2025 8:00am Delayed wound healing chronic Jan 8:00am PVD (peripheral vascular disease) chronic February 12, 2025 8:00am Ulcer of left lower extremit y with fat layer exposed chronic January 8:00am Ulcer of right lower extremi ty with fat layer exposed acute March 12, 2025 8:00am Chronic venous insufficiency chronic March 12, 2025 8:00am Delayed wound healing chronic March 12, 2025 8:00am PVD (peripheral vascular disease) chronic March 12, 2025 8 :00am Ulcer of left lower extremit y with fat layer exposed chronic March 12, 2025 8:00am Venous stasis ulcer of ankle chronic March 25, 2025 7:13am Ulcer of right lower extremi ty with fat layer exposed acute March 7:38am Chronic venous insufficiency chronic April 09, 2025 7:38am Delayed wound healing chronic Mar 7:38am PVD (peripheral vascular disease) chronic April 09, 2025 7:38am Ulcer of left lower extremit y with fat layer exposed chronic March 7:38am [facility] Work Phone: 1(460) 501-624003-06-2025 Evaluation note* Diagnosis Onset Date Resolution Status Admit Date Venous stasis ulcer of ankle chronic January 01, 2025 1:44pm Ulcer of right lower extremi ty with fat layer exposed acute December 8:00am Chronic venous insufficiency chronic January 15, 2025 8:00am Delayed wound healing chronic Dec 8:00am PVD (peripheral vascular disease) chronic January 15, 2025 8:00am Ulcer of left lower extremit y with fat layer exposed chronic December 8:00am Ulcer of right lower extremi ty with fat layer exposed acute January 8:00am Chronic venous insufficiency chronic February 12, 2025 8:00am Delayed wound healing chronic Apr 2024 8:00am PVD (peripheral vascular disease) chronic February 12, 2025 8:00am Ulcer of left lower extremit y with fat layer exposed chronic January 8:00am Ulcer of right lower extremi ty with fat layer exposed acute March 12, 2025 8:00am Chronic venous insufficiency chronic March 12, 2025 8:00am Delayed wound healing chronic March 12, 2025 8:00am PVD (peripheral vascular disease) chronic March 12, 2025 8 :00am Ulcer of left lower extremit y with fat layer exposed chronic March 12, 2025 8:00am Venous stasis ulcer of ankle chronic March 25, 2025 7:13am Venous stasis ulcer of ankle chronic April 14, 2025 1:49pm Ulcer of right lower extremi ty with fat layer exposed acute March 8:45am Chronic venous insufficiency chronic April 16, 2025 8:45am Delayed wound healing chronic Andrew 2024 8:45am PVD (peripheral vascular disease) chronic April 16, 2025 8:45am Ulcer of left lower extremit y with fat layer exposed chronic March 8:45am [facility] Work Phone: 1(115) 211-476603-06-2025 Progress note Author Alice Amaya [facility] Note Date/Time January 01, 2025 8:09 am [facility] [address] [place] [address] Progress Note - Wound Care 01/01/25 0903 MR#: [id number] Acct: [id number] Name: RUBEN ALLEN Jr. Rep #:[id number] : 1965 59 From: Alice dickerson MD PCP: Dr. George Frausto MD Status :REG RCR Location: History of Present Illness Date of Service: 01/01/25 Chief Complaint: ulcers to the left lower leg History of Wound: This is a 54-year-old male presents to wound healing center with a long-standing history of chronic venous insufficiency, chronic venous hypertension, lower extremity edema, lower extremity pain, and chronic left lower extremity ulcer. 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 He is currently wearing graduated compression stockings which are documented to be 20-30 mmHg compression and these are thigh high. He reports great compliance with use. Heis also had previous arterial work-up with no intervention recommended by letter, his vascular surgeon. He denies taking nutritional supplementation. [facility] and had a biopsy of the ulcer site. He also was previously treated by infectious disease for various contaminations and infections. He is not antibiotics at this time nor does he have any redness or odor coming from the wound. He denies fever, chill, nausea, vomiting, loss of appetite. 05/18/22: Mr. Allen presents with a new right lower extremity ulceration. He states that this has been present for months and he has been trying to manage itat home without any significant improvement. Opened up months ago, no known precipitating factor. Has been applying wound dressings without any significantimprovement. He reports increased drainage. Denies significant pain. No chills, fever or feeling of unwell. 10/16/24: Mr. Allen presents with a new right lower extremity ulceration. He states that it started out as a very small area that was slipping and then in the last week, became rather extensive. He also reports a foul smell. Has noted increase lower extremity edema. He states that he has been wearing his compression (20 to 30 mmHg) consistently. No chills, fever or otherwise feelingof unwell. Also has a new area on his left lower medial leg. He states that hehas been applying same 1 products to these new areas. Progress of Wound: No acute concerns at this time. He states that he has been doing daily dressingchanges as recommended. Has an appointment with vascular today. Objective Data Objective Data Vital Signs: Vital Signs Temp Pulse Resp BP Pulse Ox O2 Del Method 96.0 F L 92 18 156/79 H 99 Room Air 01/01/25 08:04 01/01/25 08:04 01/01/25 08:04 01/01/25 08:04 12/27/24 02:11 01/01/25 08:04 Oxygen Delivery Method Room Air Body Mass Index (BMI) 31.4 Charges/Coding Procedures Integumentary 111xxx-113xx: 63160 Lakeisha subq tissue 20 sq cm/< Physical Exam Const alert, oriented x3 and no apparent distress General Appearance: cooperative and comfortable HEENT normocephalic Head and Scalp: normal to inspection, normocephalic and atraumatic Eyes EOMs intact bilaterally Neck full ROM and supple General: normal visual inspection Resp normal respiratory effort Effort and Inspection: able to speak in complete sentences Extremity normal to inspection General Extremity: edema Skin Wounds: wounds noted size Size: See clinical note, bed granulating well, marginswell defined, no odor and open Neuro oriented x3, CN's II-XII intact bilaterally, moves all extremities and no focal motor deficits Psych mental status grossly normal, thought process normal, cooperative and affect normal Debridement Note Debridement Note Wound debrided: Right medial ankle/lower extremity Type of Debridement: Excisional debridement Anesthesia Used: 5% Lidocaine Gel Depth: Down to and including healthy tissue and in the subcutaneous layer Percentage of wound debrided: 100 Instrument Used: 5mm curette Tissue Removed: Slough and devitalized tissue Severity: Fat Layer Exposed Amount of bleeding with debridement: Mild Bleeding Controlled with: Compression and gauze Patient tolerated procedure: Patient tolerated procedure well Post-Debridement Measurements and Additional Note: Post-Debridement Measurements/Treatment KIMBERLY - Nurse 1 - General Ulcer Assessment Start: 01/01/25 08:04 Freq: Status: Active Protocol: SHANTA Activity Type Activity Date Activity User E-sign Co-sign Detail Recorded Client Recorded Date Recorded By Document 01/01/25 08:04 KW [id number] 01/01/25 08:11 01/01/25 08:04 WC - Today's Visit Information Type of service Follow-up Visit (Physician/SUPERVISOR CHANNEL PROCESS ) Arrival Mode Ambulatory Patient Identification Verified (Name & Yes ) Height and Weight Body Mass Index (BMI) 31.4 BMI Classification Obese Vital Signs Temperature (97.8 F-99.1 F) 96.0 F L Temperature Source Temporal Pulse Rate (60-100) 92 Pulse Location Monitor Respiratory Rate (12-18) 18 Respiratory rate source Observation Oxygen Delivery Method Room Air Blood Pressure (90/60-120/80) 156/79 H Blood Pressure Mean (mm Hg) 104 Source Monitor Position Semi-Fowlers Blood Pressure Location Left Arm History Since Last Visit- (Skip if this is Patient's initial visit) Have you changed medications since your No last visit? Any new allergies or adverse reactions No Had a fall/change in ADL's that may No increase risk of falls Signs or symptoms of abuse and/or No neglect since last visit Have you been in the hospital since your No last visit? Has dressing in place as prescribed Yes Has compression in place as prescribed Yes Has offloadiing in place as prescribed N/A Experienced any changes in pain level or No management Left Footwear Regular Shoe Right Footwear Regular Shoe Pain Scale: 0-10 Numeric Is Patient Pain Free? Yes - Nurse 1 - General Ulcer Measurement Start: 01/01/25 08:04 Freq: Status: Active Protocol: Activity Type Activity Date Activity User E-sign Co-sign Detail Recorded Client Recorded Date Recorded By Document 01/01/25 08:04 KW [id number] 01/01/25 08:11 KW 01/01/25 08:04 Wound Center Nurse 1 #18 Right Medial Ankle -Current Size (cm) - Length 0.6 -Current Size (cm) - Width 0.6 -Current Size (cm) - Depth 0.1 -Total Square Cm 0.36 -Date of Last Picture (Recall this 01/01/25 field) -Exudate Amt Small -Exudate Type Serosanguineous -Wound Margin Distinct, Outline Attached -Granulation Amt Large (67-100%) -Granulation Quality Red -Necrosis Amt Small (1-33%) -Necrotic Tissue Type Adherent Slough -Texture (Ara-wound Skin Appearance) Assessed,Callus -Moisture (Ara-wound Skin Appearance) Assessed,Dry/ Scaly -Color (Ara-wound Skin Appearance) Assessed -Temperature (Ara-wound Skin No Abnormality Appearance) (Pt Warm) -Tenderness on Palpation (Ara-wound No Skin Appearance) -Ulcer Cleansing Rinsed/ Irrigated with Saline -Foul Odor after Cleansing No -Anesthetic Used 5% Lidocaine Gel #10 Left Medial Ankle -Current Size (cm) - Length 2.8 -Current Size (cm) - Width 1 -Current Size (cm) - Depth 0.2 -Total Square Cm 2.8 -Date of Last Picture (Recall this 01/01/25 field) -Exudate Amt Small -Exudate Type Serosanguineous -Wound Margin Distinct, Outline Attached -Granulation Amt Large (67-100%) -Granulation Quality [place],Red -Necrosis Amt Small (1-33%) -Necrotic Tissue Type Adherent Slough -Texture (Ara-wound Skin Appearance) Assessed -Moisture (Ara-wound Skin Appearance) Assessed,Dry/ Scaly -Color (Ara-wound Skin Appearance) Assessed -Temperature (Ara-wound Skin No Abnormality Appearance) (Pt Warm) -Tenderness on Palpation (Ara-wound No Skin Appearance) -Ulcer Cleansing Rinsed/ Irrigated with Saline -Foul Odor after Cleansing No -Anesthetic Used 5% Lidocaine Gel WC - Nurse 2 - General Ulcer CM Notes Start: 01/01/25 08:04 Freq: Status: Active Protocol: Activity Type Activity Date Activity User E-sign Co-sign Detail Recorded Client Recorded Date Recorded By Document 01/01/25 08:24 [id number] 01/01/25 08:33 01/01/25 08:24 Wound Center Nurse 2 #18 Right Medial Ankle -Time 08:25 -Correct Patient Yes -Correct Side, Site, Position Yes -Correct Procedure Yes -Procedure Performed Yes -Type of Procedure Debridement -Clinical Debridement Subcutaneous -Tissue Removed Subcutaneous -Post Debridement (cm) - Length 2.4 -Post Debridement (cm) - Width 0.8 -Post Debridement (cm) - Depth 0.1 -Total Square (Post) (cm) 1.92 -Area of Debridement (cm) - Length 2.4 -Area of Debridement (cm) - Width 0.8 -Total Square (Area) (cm) 1.92 -Tunneling No -Undermining/Tunneling No -Circular Undermining No -Wound/Ulcer Outcome Not Healed -Ulcer Cleansing Rinsed/ Irrigated with Saline -Foul Odor after Cleansing No -Bioengineered Tissue No -Bleeding Controlled with Pressure -Treatment Response Procedure Tolerated Well -Debridement - Open, 1st 20sq cm No -Debridement - Subq, 1st 20sq cm No -Debridement - Muscle / Fascia, 1st No 20sq cm -Debridement - Bone, 1st 20sq cm No #10 Left Medial Ankle -Time 08:25 -Correct Patient Yes -Correct Side, Site, Position Yes -Correct Procedure Yes -Procedure Performed Yes -Type of Procedure Debridement -Clinical Debridement Subcutaneous -Tissue Removed Subcutaneous -Post Debridement (cm) - Length 3.0 -Post Debridement (cm) - Width 1.2 -Post Debridement (cm) - Depth 0.3 -Total Square (Post) (cm) 3.60 -Area of Debridement (cm) - Length 3.0 -Area of Debridement (cm) - Width 1.2 -Total Square (Area) (cm) 3.60 -Tunneling No -Undermining/Tunneling No -Circular Undermining No -Wound/Ulcer Outcome Not Healed -Ulcer Cleansing Rinsed/ Irrigated with Saline -Foul Odor after Cleansing No -Bioengineered Tissue No -Bleeding Controlled with Pressure -Treatment Response Procedure Tolerated Well -Debridement - Subq, 1st 20sq cm Yes Pain Scale: 0-10 Numeric Is Patient Pain Free? Yes - Nurse 3 - General Ulcer D/C NN Start: 01/01/25 08:04 Freq: Status: Active Protocol: Activity Type Activity Date Activity User E-sign Co-sign Detail Recorded Client Recorded Date Recorded By Document 01/01/25 08:50 DL [id number] 01/01/25 08:53 DL 01/01/25 08:50 Wound Care Center Nurse 3 #18 Right Medial Ankle -Ulcer Cleansing dakins -Primary Dressing Applied NonAdherent Contact Layer -Other Dressing Keramax/aquacel Ex -Primary Dressing Covered/Secured with Secured with Tape #10 Left Medial Ankle -Ulcer Cleansing dakins -Primary Dressing Applied NonAdherent Contact Layer -Other Dressing aquacel Ex/ keramax -Primary Dressing Covered/Secured with Secured with Tape BLE -Stockings Yes Pain Scale: 0-10 Numeric Is Patient Pain Free? Yes WC - Visit Discharge Discharge Condition Stable Ambulatory Status Ambulatory Transportation Private Auto Additional Wound Wound debrided: Left medial ankle/lower extremity Type of Debridement: Excisional debridement Anesthesia Used: 5% Lidocaine Gel Depth: Down to and including healthy tissue and in the subcutaneous layer Percentage of wound debrided: 100 Instrument Used: 5mm curette Tissue Removed: Slough and devitalized tissue Severity: Fat Layer Exposed Amount of bleeding with debridement: Mild Bleeding Controlled with: Pressure Patient tolerated procedure: Patient tolerated procedure well Assessment/Plan Assessment/Plan (1) Ulcer of left lower extremity with fat layer exposed: CODE(S): L97.922 - Non-pressure chronic ulcer of unspecified part of left lower leg with fat layer exposed (2) PVD (peripheral vascular disease): CODE(S): I73.9 - Peripheral vascular disease, unspecified (3) Chronic venous insufficiency: CODE(S): I87.2 - Venous insufficiency (chronic) (peripheral) (4) Delayed wound healing: CODE(S): T14.8XXD - Other injury of unspecified body region, subsequent encounter (5) Ulcer of right lower extremity with fat layer exposed: CODE(S): L97.912 - Non-pressure chronic ulcer of unspecified part of rightlower leg with fat layer exposed PLAN: Plan Debridement done as documented above, procedure was well-tolerated. Overall, stable. No acute concerns at this time. Continue 30 minutes Dakin's soak daily. Apply Bactroban, Aquacel extra to ulcers, Adaptic to surrounding skin and cover with KerraMax care. Continue use of compression stockings, leg elevation and exercise. Increased protein intake, protein supplements, zinc andvitamin D. Has an appointment with vascular for an ultrasound later today. Hisquestions were answered, and he was advised to call with any further questions or concerns. Follow-up in 2 weeks or sooner if needed. This note was generated with IntelliDOT dictation software. It may contain incorrectwords, spelling, and punctuation that were not noted in checking the note beforesigning. 01/01/25 0909 <Electronically signed by Alice Amaya MD> Cosigner Signature (if applicable): CC: ~ Signed [facility] Work Phone: 1(917) 119-786203-06-2025 Progress note [facility] [address] [place] [address] Progress Note - Wound Care 01/01/25 0903 MR#: [id number] Acct: [id number] Name: RUBEN ALLEN Jr. Rep #:[id number] : 1965 59 From: Alice dickerson MD PCP: Dr. George Frausto MD Status :REG RCR Location: History of Present Illness Date of Service: 01/01/25 Chief Complaint: ulcers to the left lower leg History of Wound: This is a 54-year-old male presents to wound healing center with a long-standing history of chronic venous insufficiency, chronic venous hypertension, lower extremity edema, lower extremity pain, and chronic left lower extremity ulcer. 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 He is currently wearing graduated compression stockings which are documented karla 20-30 mmHg compression and these are thigh high. He reports great compliance with use. Heis alsohad previous arterial work-up with no intervention recommended by letter, his vascular surgeon. He denies taking nutritional supplementation. [facility] and had a biopsy of the ulcer site. He also was previously treated by infectious disease for various contaminations and infections. He is not antibiotics at this time nor does he have any redness or odor coming from the wound. He denies fever, chill, nausea, vomiting, loss of appetite. 05/18/22: Mr. Allen presents with a new right lower extremity ulceration. He states that this has been present for months and he has been trying to manage itat home without any significant improvement. Opened up months ago, no known precipitating factor. Has been applying wound dressings without any significantimprovement. He reports increased drainage. Denies significant pain. No chills, fever or feeling of unwell. 10/16/24: Mr. Allen presents with a new right lower extremity ulceration. He states that it started out as a very small area that was slipping and then in the last week, became rather extensive. He also reports a foul smell. Has noted increase lower extremity edema. He states that he has been wearing his compression (20 to 30 mmHg) consistently. No chills, fever or otherwise feelingof unwell. Also has a new area on his left lower medial leg. He states that hehas been applying same 1 products to these new areas. Progress of Wound: No acute concerns at this time. He states that he has been doing daily dressingchanges as recommended. Has an appointment with vascular today. Objective Data Objective Data Vital Signs: Vital Signs Temp Pulse Resp BP Pulse Ox O2 Del Method 96.0 F L 92 18 156/79 H 99 Room Air 01/01/25 08:04 01/01/25 08:04 01/01/25 08:04 01/01/25 08:04 12/27/24 02:11 01/01/25 08:04 Oxygen Delivery Method Room Air Body Mass Index (BMI) 31.4 Charges/Coding Procedures Integumentary 111xxx-113xx: 51369 Lakeisha subq tissue 20 sq cm/< Physical Exam Const alert, oriented x3 and no apparent distress General Appearance: cooperative and comfortable HEENT normocephalic Head and Scalp: normal to inspection, normocephalic and atraumatic Eyes EOMs intact bilaterally Neck full ROM and supple General: normal visual inspection Resp normal respiratory effort Effort and Inspection: able to speak in complete sentences Extremity normal to inspection General Extremity: edema Skin Wounds: wounds noted size Size: See clinical note, bed granulating well, marginswell defined, no odor and open Neuro oriented x3, CN's II-XII intact bilaterally, moves all extremities and no focal motor deficits Psych mental status grossly normal, thought process normal, cooperative and affect normal Debridement Note Debridement Note Wound debrided: Right medial ankle/lower extremity Type of Debridement: Excisional debridement Anesthesia Used: 5% Lidocaine Gel Depth: Down to and including healthy tissue and in the subcutaneous layer Percentage of wound debrided: 100 Instrument Used: 5mm curette Tissue Removed: Slough and devitalized tissue Severity: Fat Layer Exposed Amount of bleeding with debridement: Mild Bleeding Controlled with: Compression and gauze Patient tolerated procedure: Patient tolerated procedure well Post-Debridement Measurements and Additional Note: Post-Debridement Measurements/Treatment KIMBERLY - Nurse 1 - General Ulcer Assessment Start: 01/01/25 08:04 Freq: Status: Active Protocol: SHANTA Activity Type Activity Date Activity User E-sign Co-sign Detail Recorded Client Recorded Date Recorded By Document 01/01/25 08:04 KW [id number] 01/01/25 08:11 01/01/25 08:04 WC - Today's Visit Information Type of service Follow-up Visit (Physician/SUPERVISOR CHANNEL PROCESS ) Arrival Mode Ambulatory Patient Identification Verified (Name & Yes ) Height and Weight Body Mass Index (BMI) 31.4 BMI Classification Obese Vital Signs Temperature (97.8 F-99.1 F) 96.0 F L Temperature Source Temporal Pulse Rate (60-100) 92 Pulse Location Monitor Respiratory Rate (12-18) 18 Respiratory rate source Observation Oxygen Delivery Method Room Air Blood Pressure (90/60-120/80) 156/79 H Blood Pressure Mean (mm Hg) 104 Source Monitor Position Semi-Fowlers Blood Pressure Location Left Arm History Since Last Visit- (Skip if this is Patient's initial visit) Have you changed medications since your No last visit? Any new allergies or adverse reactions No Had a fall/change in ADL's that may No increase risk of falls Signs or symptoms of abuse and/or No neglect since last visit Have you been in the hospital since your No last visit? Has dressing in place as prescribed Yes Has compression in place as prescribed Yes Has offloadiing in place as prescribed N/A Experienced any changes in pain level or No management Left Footwear Regular Shoe Right Footwear Regular Shoe Pain Scale: 0-10 Numeric Is Patient Pain Free? Yes - Nurse 1 - General Ulcer Measurement Start: 01/01/25 08:04 Freq: Status: Active Protocol: Activity Type Activity Date Activity User E-sign Co-sign Detail Recorded Client Recorded Date Recorded By Document 01/01/25 08:04 KW [id number] 01/01/25 08:11 01/01/25 08:04 Wound Center Nurse 1 #18 Right Medial Ankle -Current Size (cm) - Length 0.6 -Current Size (cm) - Width 0.6 -Current Size (cm) - Depth 0.1 -Total Square Cm 0.36 -Date of Last Picture (Recall this 01/01/25 field) -Exudate Amt Small -Exudate Type Serosanguineous -Wound Margin Distinct, Outline Attached -Granulation Amt Large (67-100%) -Granulation Quality Red -Necrosis Amt Small (1-33%) -Necrotic Tissue Type Adherent Slough -Texture (Ara-wound Skin Appearance) Assessed,Callus -Moisture (Ara-wound Skin Appearance) Assessed,Dry/ Scaly -Color (Ara-wound Skin Appearance) Assessed -Temperature (Ara-wound Skin No Abnormality Appearance) (Pt Warm) -Tenderness on Palpation (Raa-wound No Skin Appearance) -Ulcer Cleansing Rinsed/ Irrigated with Saline -Foul Odor after Cleansing No -Anesthetic Used 5% Lidocaine Gel #10 Left Medial Ankle -Current Size (cm) - Length 2.8 -Current Size (cm) - Width 1 -Current Size (cm) - Depth 0.2 -Total Square Cm 2.8 -Date of Last Picture (Recall this 01/01/25 field) -Exudate Amt Small -Exudate Type Serosanguineous -Wound Margin Distinct, Outline Attached -Granulation Amt Large (67-100%) -Granulation Quality [place],Red -Necrosis Amt Small (1-33%) -Necrotic Tissue Type Adherent Slough -Texture (Ara-wound Skin Appearance) Assessed -Moisture (Ara-wound Skin Appearance) Assessed,Dry/ Scaly -Color (Ara-wound Skin Appearance) Assessed -Temperature (Ara-wound Skin No Abnormality Appearance) (Pt Warm) -Tenderness on Palpation (Ara-wound No Skin Appearance) -Ulcer Cleansing Rinsed/ Irrigated with Saline -Foul Odor after Cleansing No -Anesthetic Used 5% Lidocaine Gel WC - Nurse 2 - General Ulcer CM Notes Start: 01/01/25 08:04 Freq: Status: Active Protocol: Activity Type Activity Date Activity User E-sign Co-sign Detail Recorded Client Recorded Date Recorded By Document 01/01/25 08:24 [id number] 01/01/25 08:33 GM 01/01/25 08:24 Wound Center Nurse 2 #18 Right Medial Ankle -Time 08:25 -Correct Patient Yes -Correct Side, Site, Position Yes -Correct Procedure Yes -Procedure Performed Yes -Type of Procedure Debridement -Clinical Debridement Subcutaneous -Tissue Removed Subcutaneous -Post Debridement (cm) - Length 2.4 -Post Debridement (cm) - Width 0.8 -Post Debridement (cm) - Depth 0.1 -Total Square (Post) (cm) 1.92 -Area of Debridement (cm) - Length 2.4 -Area of Debridement (cm) - Width 0.8 -Total Square (Area) (cm) 1.92 -Tunneling No -Undermining/Tunneling No -Circular Undermining No -Wound/Ulcer Outcome Not Healed -Ulcer Cleansing Rinsed/ Irrigated with Saline -Foul Odor after Cleansing No -Bioengineered Tissue No -Bleeding Controlled with Pressure -Treatment Response Procedure Tolerated Well -Debridement - Open, 1st 20sq cm No -Debridement - Subq, 1st 20sq cm No -Debridement - Muscle / Fascia, 1st No 20sq cm -Debridement - Bone, 1st 20sq cm No #10 Left Medial Ankle -Time 08:25 -Correct Patient Yes -Correct Side, Site, Position Yes -Correct Procedure Yes -Procedure Performed Yes -Type of Procedure Debridement -Clinical Debridement Subcutaneous -Tissue Removed Subcutaneous -Post Debridement (cm) - Length 3.0 -Post Debridement (cm) - Width 1.2 -Post Debridement (cm) - Depth 0.3 -Total Square (Post) (cm) 3.60 -Area of Debridement (cm) - Length 3.0 -Area of Debridement (cm) - Width 1.2 -Total Square (Area) (cm) 3.60 -Tunneling No -Undermining/Tunneling No -Circular Undermining No -Wound/Ulcer Outcome Not Healed -Ulcer Cleansing Rinsed/ Irrigated with Saline -Foul Odor after Cleansing No -Bioengineered Tissue No -Bleeding Controlled with Pressure -Treatment Response Procedure Tolerated Well -Debridement - Subq, 1st 20sq cm Yes Pain Scale: 0-10 Numeric Is Patient Pain Free? Yes - Nurse 3 - General Ulcer D/C NN Start: 01/01/25 08:04 Freq: Status: Active Protocol: Activity Type Activity Date Activity User E-sign Co-sign Detail Recorded Client Recorded Date Recorded By Document 01/01/25 08:50 DL [id number] 01/01/25 08:53 DL 01/01/25 08:50 Wound Care Center Nurse 3 #18 Right Medial Ankle -Ulcer Cleansing dakins -Primary Dressing Applied NonAdherent Contact Layer -Other Dressing Keramax/aquacel Ex -Primary Dressing Covered/Secured with Secured with Tape #10 Left Medial Ankle -Ulcer Cleansing dakins -Primary Dressing Applied NonAdherent Contact Layer -Other Dressing aquacel Ex/ keramax -Primary Dressing Covered/Secured with Secured with Tape BLE -Stockings Yes Pain Scale: 0-10 Numeric Is Patient Pain Free? Yes - Visit Discharge Discharge Condition Stable Ambulatory Status Ambulatory Transportation Private Auto Additional Wound Wound debrided: Left medial ankle/lower extremity Type of Debridement: Excisional debridement Anesthesia Used: 5% Lidocaine Gel Depth: Down to and including healthy tissue and in the subcutaneous layer Percentage of wound debrided: 100 Instrument Used: 5mm curette Tissue Removed: Slough and devitalized tissue Severity: Fat Layer Exposed Amount of bleeding with debridement: Mild Bleeding Controlled with: Pressure Patient tolerated procedure: Patient tolerated procedure well Assessment/Plan Assessment/Plan (1) Ulcer of left lower extremity with fat layer exposed: CODE(S): L97.922 - Non-pressure chronic ulcer of unspecified part of left lower leg with fat layer exposed (2) PVD (peripheral vascular disease): CODE(S): I73.9 - Peripheral vascular disease, unspecified (3) Chronic venous insufficiency: CODE(S): I87.2 - Venous insufficiency (chronic) (peripheral) (4) Delayed wound healing: CODE(S): T14.8XXD - Other injury of unspecified body region, subsequent encounter (5) Ulcer of right lower extremity with fat layer exposed: CODE(S): L97.912 - Non-pressure chronic ulcer of unspecified part of rightlower leg with fat layer exposed PLAN: Plan Debridement done as documented above, procedure was well-tolerated. Overall, stable. No acute concerns at this time. Continue 30 minutes Dakin's soak daily. Apply Bactroban, Aquacel extra to ulcers, Adaptic to surrounding skin and cover with KerraMax care. Continue use of compression stockings, legelevation and exercise. Increased protein intake, protein supplements, zinc andvitamin D. Has an appointment with vascular for an ultrasound later today. Hisquestions were answered, and he was advised to call with any further questions or concerns. Follow-up in 2 weeks or sooner if needed. This note was generated with IntelliDOT dictation software. It may contain incorrectwords, spelling, and punctuation that were not noted in checking the note beforesigning. 01/01/25 0909 Cosigner Signature (if applicable): CC: ~ Signed [facility]02-21-2025 Telephone encounter Note* Telephone Encounter - Kyara Mtz MA - 12/19/2024 7:47 AM EST Patient came into office and picked form up Kyara Mtz MA [facility]02-21-2025 Miscellaneous Notes* Telephone Encounter - Kyara Mtz MA - 12/19/2024 7:47 AM EST Patient came into office and picked form up Kyara Mtz MA * Telephone Encounter - Cathy Rhoades LPN - 12/15/2024 8:41 AM EST Telephone call to patient, message left to call office back to let us know what to do with form. Form is at my desk until further instructed. Cathy Rhoades LPN * Telephone Encounter - Bhavana Rosales APRN.CNP - 12/15/2024 8:18 AM EST Form completed and on my desk. Bhavana Rosales APRN.CNP * Telephone Encounter - Bhavana Rosales APRN.CNP - 12/15/2024 8:04 AM EST Do you have his forms? Bhavana Rosales APRN.CNP * Telephone Encounter - Cathy Rhoades LPN - 12/12/2024 11:37 AM EST Type of form: Annual Physical Form received via walk in When form is completed, call patient Form has been forwarded to Nurse Practitioner: Bhavana Rhoades LPN documented in this encounterOhiohealth02-17-2025 Telephone encounter Note * Telephone Encounter - Ina Martinez MA - 12/15/2024 9:44 AM EST Prescription Refill Information The patient has been identified by name and date of : Yes Caregiver verified no other encounters exist for this prescription request: Yes Caregiver confirmed with patient/requestor that no other refills are due, in the near future, with this provider at this time: Yes The last office visit in the department: 10/2024 Does the patient have a future office visit with this provider/department: Yes Requested Prescriptions Pending Prescriptions Disp Refills atorvastatin (LIPITOR) 20 mg tablet 90 tablet 1 Sig: Take 1 tablet by mouth daily at bedtime. For cholesterol. hydroCHLOROthiazide 25 mg tablet 90 tablet 1 Sig: Take 1 tablet by mouth once daily. Ina Martinez MA December 15, 2024 9:44 AM [facility]02-17-2025 Miscellaneous Notes* Telephone Encounter - Ina Martinez MA - 12/15/2024 9:44 AM EST Prescription Refill Information The patient has been identified by name and date of : Yes Caregiver verified no other encounters exist for this prescription request: Yes Caregiver confirmed with patient/requestor that no other refills are due, in the near future, with this provider at this time: Yes The last office visit in the department: 10/2024 Does the patient have a future office visit with this provider/department: Yes Requested Prescriptions Pending Prescriptions Disp Refills atorvastatin (LIPITOR) 20 mg tablet 90 tablet 1 Sig: Take 1 tablet by mouth daily at bedtime. For cholesterol. hydroCHLOROthiazide 25 mg tablet 90 tablet 1 Sig: Take 1 tablet by mouth once daily. Ina Martinez MA December 15, 2024 9:44 AM * Telephone Encounter - Maine Diaz - 12/15/2024 8:48 AM EST Last apt 11/07/24 Patient has been identified by name and date of : Yes Last office visit in this department: 11/07/2024 RX INSTRUCTIONS: Patient aware RX will be sent to pharmacy. No need to notify patient. Patient phones requesting refills as follows: Requested Prescriptions Pending Prescriptions Disp Refills atorvastatin (LIPITOR) 20 mg tablet 90 tablet 1 Sig: Take 1 tablet by mouth daily at bedtime. For cholesterol. hydroCHLOROthiazide 25 mg tablet 90 tablet 1 Sig: Take 1 tablet by mouth once daily. Please review and advise. Maine Aquino documented in this encounterOhiohealth02-17-2025 Telephone encounter Note * Telephone Encounter - Maine Diaz - 12/15/2024 8:48 AM EST Last apt 11/07/24 Patient has been identified by name and date of : Yes Last office visit in this department: 11/07/2024 RX INSTRUCTIONS: Patient aware RX will be sent to pharmacy. No need to notify patient. Patient phones requesting refills as follows: Requested Prescriptions Pending Prescriptions Disp Refills atorvastatin (LIPITOR) 20 mg tablet 90 tablet 1 Sig: Take 1 tablet by mouth daily at bedtime. For cholesterol. hydroCHLOROthiazide 25 mg tablet 90 tablet 1 Sig: Take 1 tablet by mouth once daily. Please review and advise. Maien Aquino [facility]02-17-2025 Telephone encounter Note* Telephone Encounter - Cathy Rhoades LPN - 12/15/2024 8:41 AM EST Telephone call to patient, message left to call office back to let us know what to do with form. Form is at my desk until further instructed. Cathy Rhoades LPN [facility]02-17-2025 Telephone encounter Note* Telephone Encounter - Bhavana Rosales APRN.ALEXEI - 12/15/2024 8:18 AM EST Form completed and on my desk. Bhavanadanial Rosales APRN.CNP [facility]02-17-2025 Telephone encounter Note* Telephone Encounter - Bhavana Rosales APRN.CNP - 12/15/2024 8:04 AM EST Do you have his forms? Bhavana Rosales APRN.CNP [facility]02-14-2025 Telephone encounter Note* Telephone Encounter - Cathy Rhoades LPN - 12/12/2024 11:37 AM EST Type of form: Annual Physical Form received via walk in When form is completed, call patient Form has been forwarded to Nurse Practitioner: Bhavana Rhoades LPN [facility]02-06-2025 Evaluation note* Diagnosis Onset Date Resolution Status Admit Date Venous stasis ulcer of ankle chronic December 04, 2024 8:15am Ulcer of right lower extremi ty with fat layer exposed acute December 11, 2024 8:45am Chronic venous insufficiency chronic December 11, 2024 8:45am Delayed wound healing chronic Feb ruary 2024 8:45am PVD (peripheral vascular disease) chronic December 11, 025 8:45am Ulcer of left lower extremit y with fat layer exposed chronic December 11, 2024 8:45am Venous stasis ulcer of ankle chronic January 01, 2025 1:44pm Ulcer of right lower extremi ty with fat layer exposed acute December 8:00am Chronic venous insufficiency chronic January 15, 2025 8:00am Delayed wound healing chronic Dec 8:00am PVD (peripheral vascular disease) chronic January 15, 2025 8:00am Ulcer of left lower extremit y with fat layer exposed chronic December 8:00am Ulcer of right lower extremi ty with fat layer exposed acute January 8:00am Chronic venous insufficiency chronic February 12, 2025 8:00am Delayed wound healing chronic Apr 2024 8:00am PVD (peripheral vascular disease) chronic February 12, 2025 8:00am Ulcer of left lower extremit y with fat layer exposed chronic January 8:00am Ulcer of right lower extremi ty with fat layer exposed acute March 12, 2025 8:00am Chronic venous insufficiency chronic March 12, 2025 8:00am Delayed wound healing chronic March 12, 2025 8:00am PVD (peripheral vascular disease) chronic March 12, 2025 8 :00am Ulcer of left lower extremit y with fat layer exposed chronic March 12, 2025 8:00am Venous stasis ulcer of ankle chronic March 25, 2025 7:13am [facility] Work Phone: [phone]) 908-945901-13-2025 Telephone encounter Note* Telephone Encounter - Fatemeh Gibbs MA - 11/10/2024 9:35 AM EST Letter mailed to pt home of results. Fatemeh Gibbs MA [facility]01-13-2025 Miscellaneous Notes* Telephone Encounter - Fatemeh Gibbs MA - 11/10/2024 9:35 AM EST Letter mailed to pt home of results. Fatemeh Gibbs MA * Telephone Encounter - Cathy Rhoades LPN - 11/10/2024 9:16 AM EST ----- Message from Bhavana Rosales APRN.CNP sent at 11/10/2024 7:48 AM EST ----- A1c has increased from 5.9% to 6.1%- recommend work on lower carbohydrate diet and aim for at [id number] minutes of exercise per week. The rest of his blood work in within acceptable ranges documented in this encounterOhiohealth01-13-2025 Telephone encounter Note * Telephone Encounter - Cathy Rhoades LPN - 11/10/2024 9:16 AM EST ----- Message from Bhavana Rosales APRN.[employer] sent at 11/10/2024 7:48 AM EST ----- A1c has increased from 5.9% to 6.1%- recommend work on lower carbohydrate diet and aim for at [id number] minutes of exercise per week. The rest of his blood work in within acceptable ranges [facility]01-10-2025 History of Present illness Narrative* Bhavana Rosales APRN.ALEXEI - 11/07/2024 7:40 AM EST 10/08/2024 Patient presents with: F/U 6 months SUBJECTIVE: This is a 59 year old that is here today for Above Complaints. Since last office visit has been in good health without ER visits or hospitalizations. HTN: Patient is compliant with meds Yes Monitors bp at home: No. Denies side effects: Yes. Chest pain: No. Dyspnea: No. Edema: No. Palpitations: No. Syncope: No. Headache: No. Dizziness: No. Prediabetes: Does not follow low carbohydrate or follow any specific exercise regime. Denies visualchanges, polyuria or polydipsia HYPERLIPIDEMIA: Patient is taking medications: Yes. Patient is watching diet: Yes. Patient denies myalgias: Yes. Patient denies gi upset: Yes PVD: following wihty [facility] wound care every 1-2 weeks for wound care to legs. LAst wound care appointment yesterday with follow-up in 2 weeks. Has upcoming appointment in November with vascular doctor to discuss. Needs excuse for jury duty due to has to attend appontments every two weeks for wounds sometimes weekly PAST MEDICAL HISTORY Diagnosis Date Dental caries History of tobacco use Hypertension Obesity Periodontal disease PVD (peripheral vascular disease) ([facility]) [facility] Vascular Wound of left leg wound center [facility], not healing since 2019 ALLERGIES Ciprofloxacin MEDICATIONS Current Outpatient Medications Medication Sig hydroCHLOROthiazide 25 mg tablet Take 1 tablet by mouth once daily. atorvastatin (LIPITOR) 20 mg tablet Take 1 tablet by mouth daily at bedtime. For cholesterol. fluconazole (DIFLUCAN) 150 mg tablet Take two tablets once a week for two weeks aspirin, enteric coated (ASPIRIN, ENTERIC COATED) 81 mg EC tablet Take 81 mg by mouth once daily. Ascorbic Acid (VITAMIN C) 100 mg tablet Take 100 mg by mouth once daily. calcium phosphate dibas/vit D3 (VITAMIN D, WITH CALCIUM, ORAL) Take by mouth. Vitamin E, dl, acetate, (VITAMIN E) 100 unit capsule Take 100 Units by mouth once daily. Zinc 50 mg tab Take 1 tablet by mouth once daily. No current facility-administered medications for this visit. Medications and allergies reviewed by this provider. SOCIAL HISTORY Social History Tobacco Use Smoking status: Former Current packs/day: 0.00 Average packs/day: 1 pack/day for 38.0 years (38.0 ttl pk-yrs) Types: Cigarettes Start date: 08/01/1981 Quit date: 08/01/2019 Years since quittin.2 Smokeless tobacco: Former Types: Chew Quit date: 07/02/2000 Vaping Use Vaping status: Never Used Substance Use Topics Alcohol use: Yes Alcohol/week: 2.0 standard drinks of alcohol Types: 2 Cans of Beer (12oz) per week Drug use: Never REVIEW OF SYSTEMS All other reviewed and negative other than HPI. OBJECTIVE: BP 132/84 Pulse 92 Resp 18 Wt 116.4 kg (256 lb 9.9 oz) SpO2 96% BMI 39.03 kg/m . Vital signs reviewed by this provider. APPEARANCE Well appearing, alert, in no acute distress, well-hydrated, well nourished. EYES conjunctiva and sclera normal. HEART RRR with normal S1 and S2, no murmurs, no gallops, no JVD appreciated LUNG clear to auscultation. No wheezes, rhonchi or rales EXTREMITIES Compression hose with dressing intact SKIN Skin color, texture, turgor normal, no suspicious rashes or lesions to exposed skin Latest Ref Rng 04/09/2024 Protein, Total 6.3 - 8.0 g/dL 7.6 Albumin 3.9 - 4.9 g/dL 4.4 Calcium 8.5 - 10.2 mg/dL 9.7 Bilirubin, Total 0.2 - 1.3 mg/dL 0.4 Alkaline Phosphatase 38 - 113 U/L 86 AST 14 - 40 U/L 38 ALT 10 - 54 U/L 50 Glucose 74 - 99 mg/dL 101 (H) BUN 9 - 24 mg/dL 19 Creatinine 0.73 - 1.22 mg/dL 1.09 Sodium 136 - 144 mmol/L 139 Potassium 3.7 - 5.1 mmol/L 4.4 Chloride 98 - 107 mmol/L 101 CO2 22 - 30 mmol/L 27 Anion Gap 8 - 15 mmol/L 11 eGFR >=60 mL/min/1.73m 78 Hemoglobin A1C 4.3 - 5.6 % 5.9 (H) Estimated Average Glucose mg/dL 123 Latest Ref Rng 10/11/2023 Cholesterol, Total <200 mg/dL 120 Triglyceride <150 mg/dL 75 HDL Cholesterol >39 mg/dL 39 (L) Non HDL Cholesterol <130 mg/dL 81 Fasting Time hrs 10 VLDL Cholesterol <30 mg/dL 15 TC:HDL Ratio <5.10 3.08 LDL Cholesterol <100 mg/dL 66 LDL:HDL Ratio <2.54 1.69 Legend: (L) Low Legend: (H) High BP Controlled (<130/80) Never done DTaP,Tdap,Td Vaccine(1 - Tdap) Never done Colorectal Cancer Screening Never done Lung Cancer Screening Never done Shingrix Vaccine(1 of 2) Never done Pneumococcal Vaccine: 50+(1 of 1 - PCV) Never done Prostate Cancer Screening Discussion Never done Influenza Vaccine(1) Never done Covid-19 Vaccine( season) due on 06/29/2024 Depression Screening due on 04/09/2025 Anxiety Screening due on 04/09/2025 Annual PCP Team Chronic Disease Visit due on 11/07/2025 Diabetes Screening due on 04/09/2027 Lipid Screening due on 10/11/2028 RSV Vaccine(1 - 1-dose 75+ series) due on 2038 Hepatitis C Screening Completed HIV Screening Completed ASSESSMENT/PLAN: 1. Essential hypertension - ICD9: 401.9, ICD10: I10 (primary diagnosis) - Controlled - Continue current medications - Recommend home blood pressure monitoring, to bring results to next visit - Encouraged sodium restriction, DASH or Mediterranean diet - Recommend regular aerobic exercise - Discussed need for and benefit of weight loss. BMI 39.03 kg/(m^2) - Follow up in 6 months for hypertension visit - COMPREHENSIVE METABOLIC PANEL - COMPLETE BLOOD COUNT AND DIFFERENTIAL - LIPID PANEL BASIC 2. Hyperlipidemia, mixed - ICD9: 272.2, ICD10: E78.2 - Control undetermined, due for labs - Continue current medications - Counseled on healthy diet and regular exercise - Discussed need for and benefit of weight loss. BMI 39.03 kg/(m^2) - Follow up in 6 months, sooner should any other issues arise. - COMPREHENSIVE METABOLIC PANEL - LIPID PANEL BASIC 3. Prediabetes - ICD9: 790.29, ICD10: R73.03 - recommend lower carbohydrate diet and aim for at least 150 minutes of exercise per week - HEMOGLOBIN A1C 4. PVD (peripheral vascular disease) (HCC) - ICD9: 443.9, ICD10: I73.9 - follow-up with vascular and wound care - letter provided for jury duty - with his frequent needs for appointments would recommend he not have to serve at this time 5. Obesity, Class II, BMI 35-39.9 - ICD9: 278.00, ICD10: E66.812 - Lengthy discussion in office today regarding diet and exercise. Discussed use of small plate to eat meals from, drink 1 glass of water 10-15 minutes prior to eating meal, drink 8 glasses of water daily, eat fresh fruit and vegetable during meal first then lean protein such as grilled/baked chicken breast or fish, limit carbohydrate intake (less pasta, breads, rice and snack foods) as well as limiting sugars (desserts etc). Important to count / track your calories and exercise as well. Bhavana Rosales APRN.CNP Prescription instructions reviewed with patient as applicable. Patient advised if symptoms do not improve or if symptoms worsen sooner, to contact their primary care physician. Potential red flag symptoms discussed with the patient. Reviewed appropriate action plan to take if red flag symptoms occur. Patient agreeable to treatment plan. Medical Decision Making: Problems: Moderate: 2+ stable chronic illnesses Data: Unique test(s) ordered: 3+ Risk: Moderate: Moderate risk from testing/treatment Medical Decision Making Level: 4 - Moderate documented in this encounterOhiohealth01-10-2025 NoteHNO ID: [id number] Author: BHAVANA ROSALES APRN.CNP Service: ? Author Type: Nurse Practitioner Type: Progress Notes Filed: 11/07/2024 08:51 Note Text: 10/08/2024 Patient presents with: F/U 6 months SUBJECTIVE: This is a 59 year old that is here today for Above Complaints. Since last office visit has been in good health without ER visits or hospitalizations. HTN: Patient is compliant with meds Yes Monitors bp at home: No. Denies side effects: Yes. Chest pain: No. Dyspnea: No. Edema: No. Palpitations: No. Syncope: No. Headache: No. Dizziness: No. Prediabetes: Does not follow low carbohydrate or follow any specific exercise regime. Denies visual changes, polyuria or polydipsia HYPERLIPIDEMIA: Patient is taking medications: Yes. Patient is watching diet: Yes. Patient denies myalgias: Yes. Patient denies gi upset: Yes PVD: following wiy [facility] wound care every 1-2 weeks for wound care to legs. LAst wound care appointment yesterday with follow-up in 2 weeks. Has upcoming appointment in November with vascular doctor to discuss. Needs excuse for jury duty due to has to attend appontments every two weeks for wounds sometimes weekly PAST MEDICAL HISTORY Diagnosis Date Dental caries History of tobacco use Hypertension Obesity Periodontal disease PVD (peripheral vascular disease) ([facility]) [facility] Vascular Wound of left leg wound center [facility], not healing since 2019 ALLERGIES Ciprofloxacin MEDICATIONS Current Outpatient Medications Medication Sig hydroCHLOROthiazide 25 mg tablet Take 1 tablet by mouth once daily. atorvastatin (LIPITOR) 20 mg tablet Take 1 tablet by mouth daily at bedtime. For cholesterol. fluconazole (DIFLUCAN) 150 mg tablet Take two tablets once a week for two weeks aspirin, enteric coated (ASPIRIN, ENTERIC COATED) 81 mg EC tablet Take 81 mg by mouth once daily. Ascorbic Acid (VITAMIN C) 100 mg tablet Take 100 mg by mouth once daily. calcium phosphate dibas/vit D3 (VITAMIN D, WITH CALCIUM, ORAL) Take by mouth. Vitamin E, dl, acetate, (VITAMIN E) 100 unit capsule Take 100 Units by mouth once daily. Zinc 50 mg tab Take 1 tablet by mouth once daily. No current facility-administered medications for this visit. Medications and allergies reviewed by this provider. SOCIAL HISTORY Social History Tobacco Use Smoking status: Former Current packs/day: 0.00 Average packs/day: 1 pack/day for 38.0 years (38.0 ttl pk-yrs) Types: Cigarettes Start date: 08/01/1981 Quit date: 08/01/2019 Years since quittin.2 Smokeless tobacco: Former Types: Chew Quit date: 07/02/2000 Vaping Use Vaping status: Never Used Substance Use Topics Alcohol use: Yes Alcohol/week: 2.0 standard drinks of alcohol Types: 2 Cans of Beer (12oz) per week Drug use: Never REVIEW OF SYSTEMS All other reviewed and negative other than HPI. OBJECTIVE: BP 132/84 Pulse 92 Resp 18 Wt 116.4 kg (256 lb 9.9 oz) SpO2 96% BMI 39.03 kg/m? . Vital signs reviewed by this provider. APPEARANCE Well appearing, alert, in no acute distress, well-hydrated, well nourished. EYES conjunctiva and sclera normal. HEART RRR with normal S1 and S2, no murmurs, no gallops, no JVD appreciated LUNG clear to auscultation. No wheezes, rhonchi or rales EXTREMITIES Compression hose with dressing intact SKIN Skin color, texture, turgor normal, no suspicious rashes or lesions to exposed skin Latest Ref Rng 04/09/2024 Protein, Total 6.3 - 8.0 g/dL 7.6 Albumin 3.9 - 4.9 g/dL 4.4 Calcium 8.5 - 10.2 mg/dL 9.7 Bilirubin, Total 0.2 - 1.3 mg/dL 0.4 Alkaline Phosphatase 38 - 113 U/L 86 AST 14 - 40 U/L 38 ALT 10 - 54 U/L 50 Glucose 74 - 99 mg/dL 101 (H) BUN 9 - 24 mg/dL 19 Creatinine 0.73 - 1.22 mg/dL 1.09 Sodium 136 - 144 mmol/L 139 Potassium 3.7 - 5.1 mmol/L 4.4 Chloride 98 - 107 mmol/L 101 CO2 22 - 30 mmol/L 27 Anion Gap 8 - 15 mmol/L 11 eGFR >=60 mL/min/1.73m? 78 Hemoglobin A1C 4.3 - 5.6 % 5.9 (H) Estimated Average Glucose mg/dL 123 Latest Ref Rng 10/11/2023 Cholesterol, Total <200 mg/dL 120 Triglyceride <150 mg/dL 75 HDL Cholesterol >39 mg/dL 39 (L) Non HDL Cholesterol <130 mg/dL 81 Fasting Time hrs 10 VLDL Cholesterol <30 mg/dL 15 TC:HDL Ratio <5.10 3.08 LDL Cholesterol <100 mg/dL 66 LDL:HDL Ratio <2.54 1.69 Legend: (L) Low Legend: (H) High BP Controlled (<130/80) Never done DTaP,Tdap,Td Vaccine(1 - Tdap) Never done Colorectal Cancer Screening Never done Lung Cancer Screening Never done Shingrix Vaccine(1 of 2) Never done Pneumococcal Vaccine: 50+(1 of 1 - PCV) Never done Prostate Cancer Screening Discussion Never done Influenza Vaccine(1) Never done Covid-19 Vaccine( - season) due on 06/29/2024 Depression Screening due on 04/09/2025 Anxiety Screening due on 04/09/2025 Annual PCP Team Chronic Disease Visit due on 11/07/2025 Diabetes Screening due on 04/09/2027 Lipid Screening due on 10/11/2028 RSV Vaccine(1 - (more content not included)...[facility] 10-23-2024 Evaluation note* Diagnosis Onset Date Resolution Status Admit Date Ulcer of right lower extremi ty with fat layer exposed acute October 23, 2024 8:00am Chronic venous insufficiency chronic October 23, 2024 8:00am Delayed wound healing chronic Dec ember 2023 8:00am PVD (peripheral vascular disease) chronic October 23, 024 8:00am Ulcer of left lower extremit y with fat layer exposed chronic October 23, 2024 8:00am Ulcer of right lower extremi ty with fat layer exposed acute October 302024 8:00am Chronic venous insufficiency chronic November 20, 2024 8:00am Delayed wound healing chronic Amish uary 2024 8:00am PVD (peripheral vascular disease) chronic November 20 8:00am Ulcer of left lower extremit y with fat layer exposed chronic October 302024 8:00am Venous stasis ulcer of ankle chronic December 04, 2024 8:15am Ulcer of right lower extremi ty with fat layer exposed acute December 11, 2024 8:45am Chronic venous insufficiency chronic December 11, 2024 8:45am Delayed wound healing chronic Feb ruary 2024 8:45am PVD (peripheral vascular disease) chronic December 11, 025 8:45am Ulcer of left lower extremit y with fat layer exposed chronic December 11, 2024 8:45am Venous stasis ulcer of ankle chronic January 01, 2025 1:44pm Ulcer of right lower extremi ty with fat layer exposed acute December 8:00am Chronic venous insufficiency chronic January 15, 2025 8:00am Delayed wound healing chronic Dec 8:00am PVD (peripheral vascular disease) chronic January 15, 2025 8:00am Ulcer of left lower extremit y with fat layer exposed chronic December 8:00am [facility] Work Phone: 1(179) 383-565406-14-2024 Telephone encounter Note* Telephone Encounter - Juany Castellano LPN - 04/11/2024 9:41 AM EDT Pt. informed. [facility] Work Phone: 1(450) 515-771506-14-2024 Miscellaneous Notes* Telephone Encounter - Juany Castellano LPN - 04/11/2024 9:41 AM EDT Pt. informed. * Telephone Encounter - Kelsy Chavez LPN - 04/11/2024 8:04 AM EDT Left a message for pt to call the office and ask to speak to a nurse. Faxed labs to [facility]. Kelsy Chavez LPN * Telephone Encounter - Kelsy Chavez LPN - 04/11/2024 8:04 AM EDT ----- Message from Bhavana Rosales APRN.SUPERVISOR CHANNEL PROCESS sent at 04/11/2024 6:38 AM EDT ----- A1c up to 5.9% from 5.7%- work on lower carbohydrate diet and exercise. The rest of his blood work is in acceptable ranges. Please fax his current labs to [facility]. Bhavana Rosales APRN.ALEXEI documented in this encounter[facility]health06-14-2024 Telephone encounter Note * Telephone Encounter - Kelsy Chavez LPN - 04/11/2024 8:04 AM EDT Left a message for pt to call the office and ask to speak to a nurse. Faxed labs to [facility] [place]. Kelsy Chavez LPN [facility]06-14-2024 Telephone encounter Note* Telephone Encounter - Kelsy Chavez LPN - 04/11/2024 8:04 AM EDT ----- Message from Bhavana Rosales APRN.ALEXEI sent at 04/11/2024 6:38 AM EDT ----- A1c up to 5.9% from 5.7%- work on lower carbohydrate diet and exercise. The rest of his blood work is in acceptable ranges. Please fax his current labs to [facility] [place]. Bhavana Rosales APRN.ALEXEI [facility]06-12-2024 History of Present illness Narrative* Bhavana Rosales APRN.CNP - 04/09/2024 7:40 AM EDT 04/08/2024 Patient presents with: F/U 6 Month SUBJECTIVE: This is a 58 year old that is here today for Above Complaints. Since last office visit has been in good health without ER visits or hospitalizations. HTN: Patient is compliant with meds Yes Monitors bp at home: No. Denies side effects: Yes. Chest pain: No. Dyspnea: No. Edema: No. Palpitations: No. Syncope: No. Headache: No. Dizziness: occasionally . Prediabetes: Does not follow low carbohydrate or follow any specific exercise regime. Denies visualchanges, polyuria or polydipsia PVD: still going to [facility] wound care every two weeks. Still with small open area to left ankle per patient report HYPERLIPIDEMIA: Patient is taking medications: Yes. Patient is watching diet: No. Patient denies myalgias: Yes. Patient denies gi upset: Yes Reports still with rash to chest and shoulders. Tried OTC shampoo recommended but did not see much difference PAST MEDICAL HISTORY Diagnosis Date Dental caries History of tobacco use Hypertension Obesity Periodontal disease PVD (peripheral vascular disease) ([facility]) [facility] Vascular Wound of left leg wound center [facility], not healing since 2018 ALLERGIES Ciprofloxacin MEDICATIONS Current Outpatient Medications Medication Sig predniSONE (DELTASONE) 10 mg tablet Take 4 tabs daily for 3 days, then 2 tabs daily for 3 days, then 1 tab daily for 3 days with food. atorvastatin (LIPITOR) 20 mg tablet Take 1 tablet by mouth daily at bedtime. For cholesterol. hydroCHLOROthiazide 25 mg tablet Take 1 tablet by mouth once daily. aspirin, enteric coated (ASPIRIN, ENTERIC COATED) 81 mg EC tablet Take 81 mg by mouth once daily. Ascorbic Acid (VITAMIN C) 100 mg tablet Take 100 mg by mouth once daily. calcium phosphate dibas/vit D3 (VITAMIN D, WITH CALCIUM, ORAL) Take by mouth. Vitamin E, dl, acetate, (VITAMIN E) 100 unit capsule Take 100 Units by mouth once daily. Zinc 50 mg tab Take 1 tablet by mouth once daily. No current facility-administered medications for this visit. Medications and allergies reviewed by this provider. SOCIAL HISTORY Social History Tobacco Use Smoking status: Former Packs/day: 1.00 Years: 38.00 Additional pack years: 0.00 Total pack years: 38.00 Types: Cigarettes Quit date: 08/01/2019 Years since quittin.6 Smokeless tobacco: Former Types: Chew Quit date: 07/02/2000 Vaping Use Vaping Use: Never used Substance Use Topics Alcohol use: Yes Alcohol/week: 2.0 standard drinks of alcohol Types: 2 Cans of Beer (12oz) per week Drug use: Never REVIEW OF SYSTEMS All other reviewed and negative other than HPI. OBJECTIVE: BP 138/88 Pulse 89 Resp 16 Wt 113.9 kg (251 lb 3.2 oz) SpO2 98% BMI 38.20 kg/m . Vital signs reviewed by this provider. APPEARANCE Well appearing, alert, in no acute distress, well-hydrated, well nourished. EYES conjunctiva and sclera normal. HEART RRR with normal S1 and S2, no murmurs, no gallops, no JVD appreciated LUNG clear to auscultation. No wheezes, rhonchi or rales EXTREMITIES Dressings and compression hose intact SKIN skin changes consistent with tinea versicolor rash to chest and shoulder otherwise skin color,texture, turgor normal, no suspicious rashes or lesions to exposed skin Latest Ref [facility] 10/11/2023 WBC 3.70 - 11.00 k/uL 6.38 RBC 4.20 - 6.00 m/uL 5.16 Hemoglobin 13.0 - 17.0 g/dL 15.9 Hematocrit 39.0 - 51.0 % 47.6 MCV 80.0 - 100.0 fL 92.2 MCH 26.0 - 34.0 pg 30.8 MCHC 30.5 - 36.0 g/dL 33.4 RDW-CV 11.5 - 15.0 % 12.4 Platelet Count 150 - 400 k/uL 182 MPV 9.0 - 12.7 fL 12.0 Neut% % 51.7 Abs Neut (ANC) 1.45 - 7.50 k/uL 3.30 Lymph% % 34.8 Abs Lymph 1.00 - 4.00 k/uL 2.22 Canyon% % 11.6 Abs Canyon <0.87 k/uL 0.74 Eosin% % 1.1 Abs Eosin <0.46 k/uL 0.07 Baso% % 0.6 Abs Baso <0.11 k/uL 0.04 Immature Gran % % 0.2 IMMATURE GRANS (ABS) <0.10 k/uL <0.03 NRBC /100 WBC 0.0 Absolute nRBC <0.01 k/uL <0.01 DTYPE Auto Protein, Total 6.3 - 8.0 g/dL 7.3 Albumin 3.9 - 4.9 g/dL 4.6 Calcium 8.5 - 10.2 mg/dL 9.8 Bilirubin, Total 0.2 - 1.3 mg/dL 0.4 Alkaline Phosphatase 38 - 113 U/L 88 AST 14 - 40 U/L 35 ALT 10 - 54 U/L 39 Glucose 74 - 99 mg/dL 100 (H) BUN 9 - 24 mg/dL 20 Creatinine 0.73 - 1.22 mg/dL 1.13 Sodium 136 - 144 mmol/L 139 Potassium 3.7 - 5.1 mmol/L 3.9 Chloride 97 - 105 mmol/L 102 CO2 22 - 30 mmol/L 26 Anion Gap 9 - 18 mmol/L 11 eGFR >=60 mL/min/1.73m 74 Cholesterol, Total <200 mg/dL 120 Triglyceride <150 mg/dL 75 HDL Cholesterol >39 mg/dL 39 (L) Non HDL Cholesterol <130 mg/dL 81 Fasting Time hrs 10 VLDL Cholesterol <30 mg/dL 15 TC:HDL Ratio <5.10 3.08 LDL Cholesterol <100 mg/dL 66 LDL:HDL Ratio <2.54 1.69 Hemoglobin A1C 4.3 - 5.6 % 5.7 (H) Estimated Average Glucose mg/dL 117 Legend: (H) High (L) Low ASSESSMENT/PLAN: 1. Essential hypertension - ICD9: 401.9, ICD10: I10 (primary diagnosis) - Controlled - Continue current medications - Recommend home blood pressure monitoring, to bring results to next visit - Encouraged sodium restriction, DASH or Mediterranean diet - Recommend regular aerobic exercise - Discussed need for and benefit of weight loss. BMI 38.20 kg/(m^2) - Follow up in 6 months for hypertension visit - HYDROCHLOROTHIAZIDE 25 MG TABLET - COMPREHENSIVE METABOLIC PANEL 2. PVD (peripheral vascular disease) (HCC) - ICD9: 443.9, ICD10: I73.9 - continue to work with [facility] 3. Hyperlipidemia, mixed - ICD9: 272.2, ICD10: E78.2 - Controlled - Continue current medications - Counseled on healthy diet and regular exercise - Discussed need for and benefit of weight loss. BMI 38.20 kg/(m^2) - Follow up in 6 months, sooner should any other issues arise. - ATORVASTATIN 20 MG TABLET 4. Prediabetes - ICD9: 790.29, ICD10: R73.03 - encouraged to work on lower carbohydrate diet and aim for at least 150 minutes of exercise per week - HEMOGLOBIN A1C 5. Depression screening - ICD9: V79.0, ICD10: Z13.31 - BEHAVIORAL HEALTH SCREENING 6. Screening for colon cancer - ICD9: V76.51, ICD10: Z12.11 - COLOGUARD 7. Tinea versicolor - ICD9: 111.0, ICD10: B36.0 - FLUCONAZOLE 150 MG TABLET Bhavana Rosales APRN.SUPERVISOR CHANNEL PROCESS Prescription instructions reviewed with patient as applicable. Patient advised if symptoms do not improve or if symptoms worsen sooner, to contact their primary care physician. Potential red flag symptoms discussed with the patient. Reviewed appropriate action plan to take if red flag symptoms occur. Patient agreeable to treatment plan. Medical Decision Making: Problems: Moderate: 2+ stable chronic illnesses and New problem with uncertain prognosis Data: Unique test(s) ordered: 2 Risk: Moderate: Drug management Medical Decision Making Level: 4 - Moderate documented in this encounterOhiohealth04-18-2024 Progress note Author Alice Amaya [facility] February 14, 2024 10:36am Note Date/Time February 14, 2024 10: 08am [facility] [address] [place] [id number] Progress Note - Wound Care 02/14/24 1007 MR#: [id number] Acct: [id number] Name: ALEJANDRORUBENASHLEY Dawson Jr. Rep #:[id number] 05 : 1965 58 From: Alice dickerson MD PCP: Dr. George Frausto MD Status :[facility] Location: History of Present Illness Date of Service: 02/14/24 Chief Complaint: ulcers to the left lower leg History of Wound: This is a 54-year-old male presents to wound healing center with a long-standing history of chronic venous insufficiency, chronic venous hypertension, lower extremity edema, lower extremity pain, and chronic left lower extremity ulcer. 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 He is currently wearing graduated compression stockings which are documented to be 20-30 mmHg compression and these are thigh high. He reports great compliance with use. Heis also had previous arterial work-up with no intervention recommended by letter, his vascular surgeon. He denies taking nutritional supplementation. [facility] and had a biopsy of the ulcer site. He also was previously treated by infectious disease for various contaminations and infections. He is not antibiotics at this time nor does he have any redness or odor coming from the wound. He denies fever, chill, nausea, vomiting, loss of appetite. 05/18/22: Mr. Allen presents with a new right lower extremity ulceration. He states that this has been present for months and he has been trying to manage itat home without any significant improvement. Opened up months ago, no known precipitating factor. Has been applying wound dressings without any significantimprovement. He reports increased drainage. Denies significant pain. No chills, fever or feeling of unwell. Progress of Wound: No acute concerns at this time. Stable Ulcer. Objective Data Objective Data Vital Signs: Vital Signs Temp Pulse Resp BP Pulse Ox O2 Del Method 97.8 F 86 18 148/81 H 99 Room Air 02/14/24 08:15 02/14/24 08:15 02/14/24 08:15 02/14/24 08:15 01/28/24 00:22 01/31/24 08:00 Oxygen Delivery Method Room Air Body Mass Index (BMI) 31.4 Charges/Coding Procedures Integumentary 111xxx-113xx: 18640 Lakeisha subq tissue 20 sq cm/< Physical Exam Const alert, oriented x3 and no apparent distress General Appearance: cooperative and comfortable HEENT normocephalic Head and Scalp: normal to inspection, normocephalic and atraumatic Eyes EOMs intact bilaterally Neck full ROM and supple General: normal visual inspection Resp normal respiratory effort Effort and Inspection: able to speak in complete sentences Extremity normal to inspection General Extremity: edema Skin Wounds: wounds noted Neuro oriented x3 and CN's II-XII intact bilaterally Psych mental status grossly normal Appearance: grossly normal Debridement Note Debridement Note Wound debrided: Left medial ankle Type of Debridement: Excisional debridement Anesthesia Used: 5% Lidocaine Gel Depth: Down to and including healthy tissue and in the subcutaneous layer Percentage of wound debrided: 100 Instrument Used: 5mm curette Tissue Removed: Slough and devitalized tissue Severity: Fat Layer Exposed Bleeding Controlled with: Pressure Patient tolerated procedure: Patient tolerated procedure well Post-Debridement Measurements and Additional Note: Post-Debridement Measurements/Treatment WC - Nurse 1 - General Ulcer Assessment Start: 01/31/24 08:00 Freq: Status: Active Protocol: SHANTA Activity Type Activity Date Activity User E-sign Co-sign Detail Recorded Client Recorded Date Recorded By Document 01/31/24 08:00 KW Desktop 01/31/24 08:06 KW Document 02/14/24 08:15 RB [id number] 02/14/24 08:17 RB 01/31/24 02/14/24 08:00 08:15 KIMBERLY - Today's Visit Information Type of service Follow-up Visit Follow-up Visit (Physician/SUPERVISOR CHANNEL PROCESS (Physician/SUPERVISOR CHANNEL PROCESS ) ) Arrival Mode Ambulatory Ambulatory Transfer Assistance None None Patient Identification Verified (Name & Yes Yes ) Patient Requires Transmission-Based No Precautions Height and Weight Body Mass Index (BMI) 31.4 31.4 BMI Classification Obese Obese Vital Signs Temperature (97.8 F-99.1 F) 97.3 F L 97.8 F Temperature Source Temporal Temporal Pulse Rate (60-100) 101 H 86 Pulse Location Monitor Monitor Respiratory Rate (12-18) 18 18 Respiratory rate source Observation Observation Oxygen Delivery Method Room Air Blood Pressure (90/60-120/80) 153/87 H 148/81 H Blood Pressure Mean (mm Hg) 109 103 Source Monitor Monitor Position Sitting Semi-Fowlers Blood Pressure Location Left Arm Left Arm History Since Last Visit- (Skip if this is Patient's initial visit) Have you changed medications since your No No last visit? Any new allergies or adverse reactions No No Had a fall/change in ADL's that may No No increase risk of falls Signs or symptoms of abuse and/or No No neglect since last visit Have you been in the hospital since your No No last visit? Has dressing in place as prescribed Yes Yes Has compression in place as prescribed Yes Yes Has offloadiing in place as prescribed N/A No Experienced any changes in pain level or No No management Pain Scale: 0-10 Numeric Is Patient Pain Free? Yes Yes KIMBERLY - Nurse 1 - General Ulcer Measurement Start: 01/31/24 08:00 Freq: Status: Active Protocol: Activity Type Activity Date Activity User E-sign Co-sign Detail Recorded Client Recorded Date Recorded By Document 01/31/24 08:00 KW Desktop 01/31/24 08:06 KW Document 02/14/24 08:15 RB [id number] 02/14/24 08:17 RB 01/31/24 02/14/24 08:00 08:15 Wound Center Nurse 1 #10 Left Medial Ankle -Combined with other wound No -Current Size (cm) - Length 3.6 3.5 -Current Size (cm) - Width 2 1.8 -Current Size (cm) - Depth 0.3 0.3 -Total Square Cm 7.2 6.30 -Photo Taken No -Epithelialization None Present -Tunneling No No -Undermining/Tunneling No No -Circular Undermining No No -Exudate Amt Large Medium -Exudate Type Serosanguineous Serosanguineous -Wound Margin Distinct, Thickened & Outline Rolled Under Attached -Granulation Amt Large (67-100%) Medium (34-66%) -Granulation Quality Red [place] -Slough/Fibrin Yes Yes -Necrosis Amt Medium (34-66%) -Necrotic Tissue Type Adherent Slough -Structure Exposed N/A N/A -Texture (Ara-wound Skin Appearance) Assessed Assessed, Scarring -Moisture (Ara-wound Skin Appearance) Assessed,Dry/ Dry/Scaly Scaly -Color (Ara-wound Skin Appearance) Assessed Assessed -Temperature (Ara-wound Skin No Abnormality No Abnormality Appearance) (Pt Warm) (Pt Warm) -Tenderness on Palpation (Ara-wound No Skin Appearance) -Ulcer Cleansing Soap and Water Wound Cleanser -Foul Odor after Cleansing No No -Anesthetic Used 5% Lidocaine 5% Lidocaine Gel Gel Lower Limb Edema Present Yes Left Calf (cm) 36.5 Left Ankle (cm) 23 WC - Nurse 2 - General Ulcer CM Notes Start: 01/31/24 08:00 Freq: Status: Active Protocol: Activity Type Activity Date Activity User E-sign Co-sign Detail Recorded Client Recorded Date Recorded By Document 01/31/24 08:32 Desktop 01/31/24 08:34 Document 02/14/24 08:28 Desktop 02/14/24 08:30 GM 01/31/24 02/14/24 08:32 08:28 Wound Center Nurse 2 #10 Left Medial Ankle -Time 08:33 08:29 -Correct Patient Yes Yes -Correct Side, Site, Position Yes Yes -Correct Procedure Yes Yes -Procedure Performed Yes Yes -Type of Procedure Debridement Debridement -Clinical Debridement Subcutaneous Subcutaneous -Tissue Removed Subcutaneous Subcutaneous -Post Debridement (cm) - Length 4.0 3.5 -Post Debridement (cm) - Width 2.0 2.0 -Post Debridement (cm) - Depth 0.3 0.2 -Total Square (Post) (cm) 8.00 7.00 -Area of Debridement (cm) - Length 4.0 3.5 -Area of Debridement (cm) - Width 2.0 2.0 -Total Square (Area) (cm) 8.00 7.00 -Tunneling No -Undermining/Tunneling No No -Circular Undermining No No -Wound/Ulcer Outcome Not Healed Not Healed -Ulcer Cleansing Rinsed/ Rinsed/ Irrigated with Irrigated with Saline Saline -Foul Odor after Cleansing No No -Bioengineered Tissue No No -Bleeding Controlled with Pressure Pressure -Treatment Response Procedure Procedure Tolerated Well Tolerated Well -Debridement - Subq, 1st 20sq cm Yes Yes Pain Scale: 0-10 Numeric Is Patient Pain Free? Yes Yes - Nurse 3 - General Ulcer D/C NN Start: 01/31/24 08:00 Freq: Status: Active Protocol: Activity Type Activity Date Activity User E-sign Co-sign Detail Recorded Client Recorded Date Recorded By Document 01/31/24 08:39 Desktop 01/31/24 08:40 Document 02/14/24 08:36 Desktop 02/14/24 08:37 GM 01/31/24 02/14/24 08:39 08:36 Wound Care Center Nurse 3 #10 Left Medial Ankle -Ulcer Cleansing Not Cleansed Not Cleansed -Foul Odor after Cleansing No -Primary Dressing Applied Other -Other Dressing Used his own products, fibracol and Karamax -Primary Dressing Covered/Secured with Dry Gauze, Secured with Secured with Tape Tape Pain Scale: 0-10 Numeric Is Patient Pain Free? Yes Yes - Visit Discharge Discharge Condition Stable Stable Ambulatory Status Ambulatory Ambulatory Transportation Private Auto Private Auto Clinical Summary of Care Provided Yes Yes Assessment/Plan Assessment/Plan (1) Ulcer of left lower extremity with fat layer exposed: CODE(S): L97.922 - Non-pressure chronic ulcer of unspecified part of left lower leg with fat layer exposed (2) PVD (peripheral vascular disease): CODE(S): I73.9 - Peripheral vascular disease, unspecified (3) Chronic venous insufficiency: CODE(S): I87.2 - Venous insufficiency (chronic) (peripheral) (4) Delayed wound healing: CODE(S): T14.8XXD - Other injury of unspecified body region, subsequent encounter PLAN: Plan Debridement done as documented above, procedure was well-tolerated. Stable. Continue 10 minutes Dakins soak daily. Continue Fibracol, cover with Keramax care. He was advised that he could change it more than once if he notes increased drainage. Continue mupirocin ointment as well. Continue use of compression stockings, leg elevation and exercise. Increased protein intake, protein supplements, zinc and vitamin D. His questions were answered and he was advised to call with any further questions or concerns. Follow-up in 2 weeks. This note was generated with RadioFrame[employer] software. It may contain incorrectwords, spelling, and punctuation that were not noted in checking the note beforesigning. 02/14/24 1036 <Electronically signed by Alice Amaya MD> Cosigner Signature (if applicable): CC: ~ Signed [facility] Work Phone: 1(425) 482-424804-04-2024 Progress note Author Alice Amaya [facility] January 31, 2024 8:46am Note Date/Time January 31, 2024 8:46 am [facility] [address] [place] [address] Progress Note - Wound Care 01/31/24 0840 MR#: [id number] Acct: [id number] Name: RUBEN ALLEN Jr. Rep #:[id number] : 1965 58 From: Alice dickerson MD PCP: Dr. George Frausto MD Status :REG R Location: History of Present Illness Date of Service: 01/31/24 Chief Complaint: ulcers to the left lower leg History of Wound: This is a 54-year-old male presents to wound healing center with a long-standing history of chronic venous insufficiency, chronic venous hypertension, lower extremity edema, lower extremity pain, and chronic left lower extremity ulcer. 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 He is currently wearing graduated compression stockings which are documented to be 20-30 mmHg compression and these are thigh high. He reports great compliance with use. Heis also had previous arterial work-up with no intervention recommended by letter, his vascular surgeon. He denies taking nutritional supplementation. [facility] and had a biopsy of the ulcer site. He also was previously treated by infectious disease for various contaminations and infections. He is not antibiotics at this time nor does he have any redness or odor coming from the wound. He denies fever, chill, nausea, vomiting, loss of appetite. 05/18/22: Mr. Allen presents with a new right lower extremity ulceration. He states that this has been present for months and he has been trying to manage itat home without any significant improvement. Opened up months ago, no known precipitating factor. Has been applying wound dressings without any significantimprovement. He reports increased drainage. Denies significant pain. No chills, fever or feeling of unwell. Progress of Wound: No acute concerns at this time. Stable Ulcer. Objective Data Objective Data Vital Signs: Vital Signs Temp Pulse Resp BP Pulse Ox O2 Del Method 97.3 F L 101 H 18 153/87 H 99 Room Air 01/31/24 08:00 01/31/24 08:00 01/31/24 08:00 01/31/24 08:00 01/28/24 00:22 01/31/24 08:00 Oxygen Delivery Method Room Air Body Mass Index (BMI) 31.4 Charges/Coding Procedures Integumentary 111xxx-113xx: 34204 Lakeisha subq tissue 20 sq cm/< Physical Exam Const alert, oriented x3 and no apparent distress General Appearance: cooperative and comfortable HEENT normocephalic Head and Scalp: normal to inspection, normocephalic and atraumatic Eyes EOMs intact bilaterally Neck full ROM and supple General: normal visual inspection Resp normal respiratory effort Effort and Inspection: able to speak in complete sentences Extremity normal to inspection General Extremity: edema Skin Wounds: wounds noted Neuro oriented x3 and CN's II-XII intact bilaterally Psych mental status grossly normal Appearance: grossly normal Debridement Note Debridement Note Wound debrided: Left medial ankle Type of Debridement: Excisional debridement Anesthesia Used: 5% Lidocaine Gel Depth: Down to and including healthy tissue and in the subcutaneous layer Percentage of wound debrided: 100 Instrument Used: 5mm curette Tissue Removed: Slough and devitalized tissue Severity: Fat Layer Exposed Bleeding Controlled with: Pressure Patient tolerated procedure: Patient tolerated procedure well Post-Debridement Measurements and Additional Note: Post-Debridement Measurements/Treatment KIMBERLY - Nurse 1 - General Ulcer Assessment Start: 01/31/24 08:00 Freq: Status: Active Protocol: SHANTA Activity Type Activity Date Activity User E-sign Co-sign Detail Recorded Client Recorded Date Recorded By Document 01/31/24 08:00 KW [employer] 01/31/24 08:06 KW 01/31/24 08:00 WC - Today's Visit Information Type of service Follow-up Visit (Physician/SUPERVISOR CHANNEL PROCESS ) Arrival Mode Ambulatory Transfer Assistance None Patient Identification Verified (Name & Yes ) Height and Weight Body Mass Index (BMI) 31.4 BMI Classification Obese Vital Signs Temperature (97.8 F-99.1 F) 97.3 F L Temperature Source Temporal Pulse Rate (60-100) 101 H Pulse Location Monitor Respiratory Rate (12-18) 18 Respiratory rate source Observation Oxygen Delivery Method Room Air Blood Pressure (90/60-120/80) 153/87 H Blood Pressure Mean (mm Hg) 109 Source Monitor Position Sitting Blood Pressure Location Left Arm History Since Last Visit- (Skip if this is Patient's initial visit) Have you changed medications since your No last visit? Any new allergies or adverse reactions No Had a fall/change in ADL's that may No increase risk of falls Signs or symptoms of abuse and/or No neglect since last visit Have you been in the hospital since your No last visit? Has dressing in place as prescribed Yes Has compression in place as prescribed Yes Has offloadiing in place as prescribed N/A Experienced any changes in pain level or No management Pain Scale: 0-10 Numeric Is Patient Pain Free? Yes KIMBERLY - Nurse 1 - General Ulcer Measurement Start: 01/31/24 08:00 Freq: Status: Active Protocol: Activity Type Activity Date Activity User E-sign Co-sign Detail Recorded Client Recorded Date Recorded By Document 01/31/24 08:00 KW [employer] 01/31/24 08:06 KW 01/31/24 08:00 Wound Center Nurse 1 #10 Left Medial Ankle -Current Size (cm) - Length 3.6 -Current Size (cm) - Width 2 -Current Size (cm) - Depth 0.3 -Total Square Cm 7.2 -Photo Taken No -Epithelialization None Present -Tunneling No -Undermining/Tunneling No -Circular Undermining No -Exudate Amt Large -Exudate Type Serosanguineous -Wound Margin Distinct, Outline Attached -Granulation Amt Large (67-100%) -Granulation Quality Red -Slough/Fibrin Yes -Structure Exposed N/A -Texture (Ara-wound Skin Appearance) Assessed -Moisture (Ara-wound Skin Appearance) Assessed,Dry/ Scaly -Color (Ara-wound Skin Appearance) Assessed -Temperature (Ara-wound Skin No Abnormality Appearance) (Pt Warm) -Ulcer Cleansing Soap and Water -Foul Odor after Cleansing No -Anesthetic Used 5% Lidocaine Gel WC - Nurse 2 - General Ulcer CM Notes Start: 01/31/24 08:00 Freq: Status: Active Protocol: Activity Type Activity Date Activity User E-sign Co-sign Detail Recorded Client Recorded Date Recorded By Document 01/31/24 08:32 GM Desktop 01/31/24 08:34 GM 01/31/24 08:32 Wound Center Nurse 2 -Time 08:33 -Correct Patient Yes -Correct Side, Site, Position Yes -Correct Procedure Yes -Procedure Performed Yes -Type of Procedure Debridement -Clinical Debridement Subcutaneous -Tissue Removed Subcutaneous -Post Debridement (cm) - Length 4.0 -Post Debridement (cm) - Width 2.0 -Post Debridement (cm) - Depth 0.3 -Total Square (Post) (cm) 8.00 -Area of Debridement (cm) - Length 4.0 -Area of Debridement (cm) - Width 2.0 -Total Square (Area) (cm) 8.00 -Undermining/Tunneling No -Circular Undermining No -Wound/Ulcer Outcome Not Healed -Ulcer Cleansing Rinsed/ Irrigated with Saline -Foul Odor after Cleansing No -Bioengineered Tissue No -Bleeding Controlled with Pressure -Treatment Response Procedure Tolerated Well -Debridement - Subq, 1st 20sq cm Yes Pain Scale: 0-10 Numeric Is Patient Pain Free? Yes KIMBERLY - Nurse 3 - General Ulcer D/C NN Start: 01/31/24 08:00 Freq: Status: Active Protocol: Activity Type Activity Date Activity User E-sign Co-sign Detail Recorded Client Recorded Date Recorded By Document 01/31/24 08:39 Desktop 01/31/24 08:40 GM 01/31/24 08:39 Wound Care Center Nurse 3 #10 Left Medial Ankle -Ulcer Cleansing Not Cleansed -Primary Dressing Covered/Secured with Dry Gauze, Secured with Tape Pain Scale: 0-10 Numeric Is Patient Pain Free? Yes WC - Visit Discharge Discharge Condition Stable Ambulatory Status Ambulatory Transportation Private Auto Clinical Summary of Care Provided Yes Assessment/Plan Assessment/Plan (1) Ulcer of left lower extremity with fat layer exposed: CODE(S): L97.922 - Non-pressure chronic ulcer of unspecified part of left lower leg with fat layer exposed (2) PVD (peripheral vascular disease): CODE(S): I73.9 - Peripheral vascular disease, unspecified (3) Chronic venous insufficiency: CODE(S): I87.2 - Venous insufficiency (chronic) (peripheral) (4) Delayed wound healing: CODE(S): T14.8XXD - Other injury of unspecified body region, subsequent encounter PLAN: Plan Debridement done as documented above, procedure was well-tolerated. Stable. Continue 10 minutes Dakins soak daily. Continue Fibracol, cover with Keramax care. Adaptic over left dorsal foot area. He was advised that he could change it more than once if he notes increased drainage. Continue mupirocin ointment as well. Continue use of compression stockings, leg elevation and exercise. Increased protein intake, protein supplements, zinc and vitamin D. Consider continuing Fibracol for another month and if no significant change, will revert to Aquacel extra. His questions were answered and he was advised to call with any further questions or concerns. Follow-up in 2 weeks. This note was generated with IntelliDOT dictation software. It may contain incorrectwords, spelling, and punctuation that were not noted in checking the note beforesigning. 01/31/24 0846 <Electronically signed by Alice Amaya MD> Cosigner Signature (if applicable): CC: ~ Signed [facility] Work Phone: [phone] History of Present illness Narrative* UmanaLakeisha APRN.SUPERVISOR CHANNEL PROCESS - 01/19/2024 8:31 AM EDT This note was created using NoteWriter. Subjective Ruben Allen is a 58 year old male. 58 year old male with PMH of PVD, HTN, HLD, and prediabetes presents with acute onset left hand rash for 3 days. Pertinent positives include itching, redness, bruising, and swelling of left hand. Pertinent negatives include pain, fever, chills, body aches, numbness, tingling, decreased ROM, and decreased strength. The rash has been getting worse since it first started 3 days ago. Denies any injury, wounds, new soaps, new laundry detergents, dog bites/cat bites, work outside around plants, and no one else in the house has this rash. He has been putting IV dry on his hand which made it worse. He has also been putting hydrocortisone cream on it which has helped with the itching. He did place a bandaid on it during work and when he removed it, it peeled skin off which resulted in pus and bloody drainage. 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 He wears gloves at work. He states his tetanus shot is up-to-date. The history is provided by the patient. Rash This is a new problem. The current episode started in the past 7 days. The problem has been gradually worsening since onset. The affected locations include the left hand, left wrist and left fingers.The rash is characterized by bruising, itchiness, redness, swelling and blistering. He was exposed to chemicals (states he thought it was caused by a chemical at work but states he has worked with this chemical before and wears gloves). Pertinent negatives include no diarrhea, fatigue, fever, jointpain, shortness of breath or vomiting. Past treatments include topical steroids and anti-itch cream. The treatment provided mild relief. There is no history of allergies, asthma or varicella. PAST MEDICAL HISTORY Diagnosis Date Dental caries History of tobacco use Hypertension Obesity Periodontal disease PVD (peripheral vascular disease) (HCC) [facility] Vascular Wound of left leg wound center [facility], not healing since 2019 PAST SURGICAL HISTORY Procedure Laterality Date PAST SURGICAL HISTORY OF Bilateral 2015 vein stripping ALLERGIES Ciprofloxacin MEDICATIONS atorvastatin (LIPITOR) 20 mg tablet Take 1 tablet by mouth daily at bedtime. For cholesterol. hydroCHLOROthiazide 25 mg tablet Take 1 tablet by mouth once daily. aspirin, enteric coated (ASPIRIN, ENTERIC COATED) 81 mg EC tablet Take 81 mg by mouth once daily. Ascorbic Acid (VITAMIN C) 100 mg tablet Take 100 mg by mouth once daily. calcium phosphate dibas/vit D3 (VITAMIN D, WITH CALCIUM, ORAL) Take by mouth. Vitamin E, dl, acetate, (VITAMIN E) 100 unit capsule Take 100 Units by mouth once daily. Zinc 50 mg tab Take 1 tablet by mouth once daily. predniSONE (DELTASONE) 10 mg tablet Take 4 tabs daily for 3 days, then 2 tabs daily for 3 days, then 1 tab daily for 3 days with food. doxycycline (VIBRA-TABS) 100 mg tablet Take 1 tablet by mouth two times a day for 10 days. FAMILY HISTORY Problem Relation Age of Onset Diabetes Father Cancer Father lip Heart disease Father 70 Colon Cancer Sister 42 No Known Problems Brother No Known Problems Brother No Known Problems Sister No Known Problems Sister No Known Problems Sister No Known Problems Sister No Known Problems Sister Social History Tobacco Use Smoking status: Former Packs/day: 1.00 Years: 38.00 Additional pack years: 0.00 Total pack years: 38.00 Types: Cigarettes Quit date: 08/01/2019 Years since quittin.4 Smokeless tobacco: Former Types: Chew Quit date: 07/02/2000 Vaping Use Vaping Use: Never used Substance Use Topics Alcohol use: Yes Alcohol/week: 2.0 standard drinks of alcohol Types: 2 Cans of Beer (12oz) per week Drug use: Never Review of Systems Constitutional: Negative for chills, fatigue and fever. Eyes: Negative for photophobia and visual disturbance. Respiratory: Negative for shortness of breath. Gastrointestinal: Negative for abdominal pain, diarrhea, nausea and vomiting. Musculoskeletal: Negative for arthralgias, joint pain, joint swelling and myalgias. Skin: Positive for rash. Negative for pallor and wound. Allergic/Immunologic: Negative for environmental allergies, food allergies and immunocompromised state. Neurological: Negative for dizziness and light-headedness. Objective BP 132/94 Pulse 92 Temp 36.4 C (97.5 F) Resp 21 Wt 114.2 kg (251 lb 12.3 oz) SpO2 98% BMI 38.29 kg/m Physical Exam Vitals reviewed. Constitutional: General: He is awake. He is not in acute distress. Appearance: Normal appearance. He is normal weight. He is not ill-appearing, toxic-appearing or diaphoretic. HENT: Head: Normocephalic. Right Ear: Hearing normal. Left Ear: Hearing normal. Nose: Nose normal. Eyes: General: Lids are normal. Gaze aligned appropriately. No allergic shiner. Right eye: No foreign body, discharge or hordeolum. Left eye: No foreign body, discharge or hordeolum. Cardiovascular: Rate and Rhythm: Normal rate and regular rhythm. Pulses: Normal pulses. Heart sounds: Normal heart sounds, S1 normal and S2 normal. Heart sounds not distant. No murmur heard. No friction rub. No gallop. No S3 or S4 sounds. Pulmonary: Effort: Pulmonary effort is normal. No tachypnea, bradypnea, accessory muscle usage, prolonged expiration, respiratory distress or retractions. Breath sounds: Normal breath sounds. No stridor or decreased air movement. No decreased breath sounds, wheezing, rhonchi or rales. Chest: Chest wall: No tenderness. Musculoskeletal: General: Swelling present. No tenderness, deformity or signs of injury. Normal range of motion. Right forearm: Normal. No swelling, edema, deformity, lacerations, tenderness or bony tenderness. Left forearm: Normal. No swelling, edema, deformity, lacerations, tenderness or bony tenderness. Right wrist: Normal. Left wrist: Swelling present. No deformity, effusion, lacerations, tenderness, bony tenderness or crepitus. Normal range of motion. Normal pulse. Right hand: Normal. Left hand: Swelling present. No deformity, lacerations or bony tenderness. Normal range of motion. Normal strength. Normal sensation. Normal capillary refill. Normal pulse. Cervical back: Normal range of motion and neck supple. Skin: General: Skin is warm and dry. Capillary Refill: Capillary refill takes less than 2 seconds. Coloration: Skin is not ashen, cyanotic, jaundiced, mottled, pale or sallow. Findings: Bruising, ecchymosis, erythema and rash present. No abrasion, abscess, acne, burn, signs of injury, laceration, lesion, petechiae or wound. Rash is macular, papular, urticarial and vesicular. Rash is not crusting, nodular, purpuric, pustular or scaling. Comments: Localized macular, papular rash with vesicles on dorsal side of left hand, left digits and left wrist. Generalized, nonpitting edema of left hand. Ecchymosis of dorsal side of left hand surrounding 1cm wound between first and second digits of left hand, no drainage. ROM and strength of left hand, wrist and fingers intact. No red streaking. Nontender to palpation. Neurological: General: No focal deficit present. Mental Status: He is alert and oriented to person, place, and time. Mental status is at baseline. Sensory: No sensory deficit. Motor: No weakness. Coordination: Coordination normal. Gait: Gait normal. Psychiatric: Mood and Affect: Mood normal. Behavior: Behavior normal. Behavior is cooperative. Thought Content: Thought content normal. Judgment: Judgment normal. Assessment and Plan ASSESSMENT/PLAN: 1. Rash - ICD9: 782.1, ICD10: R21 - Acute onset left hand rash for 3 days getting worse with hand swelling, erythema, ecchymosis, anditching. Denies fever, chills, and pain. - Thought it may be related to a chemical at work, denies trauma or injury - History of PVD and prediabetes - Vitals stable. Localized macular, papular rash with vesicles on dorsal side of left hand, left digits and left wrist. Generalized, nonpitting edema of left hand. Ecchymosis of dorsal side of left hand surrounding 1cm wound between first and second digits of left hand, no drainage. ROM and strength of left hand, wrist and fingers intact. - Suspect contact dermatitis with early signs of cellulitis - Start prednisone taper and doxycycline - Rest, ice, elevation - Avoid topical creams and sprays - Follow-up if symptoms worsen or do not improve Nereyda Tolentino TEACHING PROVIDER (Physician/PA/SCHOOL CROSSING GUARD SUPERVISOR) NOTE OF PERSONAL INVOLVEMENT IN CARE: I have personally seen and examined the patient and performed the medical decision-making components. I have reviewed the Advanced Practice Registered Nurse (SCHOOL CROSSING GUARD SUPERVISOR) Student's documentation and verified the findings in the note as written. Any additions or changes are noted in bold/italics. Signature: Lakeisha Umana Date: 01/19/2024 Time: 9:36 AM documented in this encounterOhiohealth03-19-2024 Miscellaneous Notes* Telephone Encounter - Anita Humphreys LPN - 01/15/2024 2:02 PM EDT Pt notified form is ready for fruit or nut picker in Med Recs. Anita Humphreys LPN * Telephone Encounter - Cathy Rhoades LPN - 01/15/2024 10:31 AM EDT Patient telephoned to make aware of form completion. No answer, message left to call office back for update. Form taken to medical records for fruit or nut picker at patients earliest convenience. Copy made and sent to scanning to be placed in patients chart. Cathy Rhoades LPN * Telephone Encounter - Bhavana Rosales APRN.CNP - 01/09/2024 11:20 AM EDT Form completed and in my outbox. Bhavana Rosales APRN.ALEXEI * Telephone Encounter - Danielle Su RN - 01/09/2024 8:07 AM EDT Patient returns call and reports that is the form they gave him and told him it was ok to fill out with the information from 10/09/2023. Patient also aware that date on the form would be for 10/09/2023 with results. Danielle Su, RN * Telephone Encounter - Cathy Rhoades LPN - 01/08/2024 5:13 PM EDT Patient dropped off form for preventative care provider confirmation needing providers signature. The date range is from 01/28/24-01/23/2025. Provider is not able to sign this from his Physical in September of 2023. Patient telephoned to clarify and see if he needs a form filled out for the time frame before 01/24/2024. Message left to call office back. Cathy Rhoades LPN documented in this encounterOhiohealth03-14-2024 Progress note Author Alice Amaya [facility] January 10, 2024 9:40am Note Date/Time January 10, 2024 9:4 0am [facility] [address] [place] [address] Progress Note - Wound Care 01/10/24 0937 MR#: [id number] Acct: [id number] Name: RUBEN ALLEN Jr. Rep #:[id number] 07 : 1965 58 From: Alice dickerson MD PCP: Dr. George Frausto MD Status :REG RCR Location: History of Present Illness Date of Service: 01/10/24 Chief Complaint: ulcers to the left lower leg History of Wound: This is a 54-year-old male presents to wound healing center with a long-standing history of chronic venous insufficiency, chronic venous hypertension, lower extremity edema, lower extremity pain, and chronic left lower extremity ulcer. 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 He is currently wearing graduated compression stockings which are documented to be 20-30 mmHg compression and these are thigh high. He reports great compliance with use. Heis also had previous arterial work-up with no intervention recommended by letter, his vascular surgeon. He denies taking nutritional supplementation. [place] [facility] and had a biopsy of the ulcer site. He also was previously treated by infectious disease for various contaminations and infections. He is not antibiotics at this time nor does he have any redness or odor coming from the wound. He denies fever, chill, nausea, vomiting, loss of appetite. 05/18/22: Mr. Allen presents with a new right lower extremity ulceration. He states that this has been present for months and he has been trying to manage itat home without any significant improvement. Opened up months ago, no known precipitating factor. Has been applying wound dressings without any significantimprovement. He reports increased drainage. Denies significant pain. No chills, fever or feeling of unwell. Progress of Wound: No new concerns at this time. He denies increased drainage or pain. He states that he ran out of Fibracol and went back to using Aquacel just the other day Objective Data Objective Data Vital Signs: Vital Signs Temp Pulse Resp BP Pulse Ox O2 Del Method 97.2 F L 84 18 145/78 H 99 Room Air 01/10/24 08:44 01/10/24 08:44 01/03/24 08:11 01/10/24 08:44 12/28/23 00:28 01/10/24 08:44 Oxygen Delivery Method Room Air Body Mass Index (BMI) 31.4 Charges/Coding Procedures Integumentary 111xxx-113xx: 98563 Lakeisha subq tissue 20 sq cm/< Physical Exam Const alert, oriented x3 and no apparent distress General Appearance: cooperative and comfortable HEENT normocephalic Head and Scalp: normal to inspection, normocephalic and atraumatic Eyes EOMs intact bilaterally Neck full ROM and supple General: normal visual inspection Resp normal respiratory effort Effort and Inspection: able to speak in complete sentences Extremity normal to inspection General Extremity: edema Skin Wounds: wounds noted Neuro oriented x3 and CN's II-XII intact bilaterally Psych mental status grossly normal Appearance: grossly normal Debridement Note Debridement Note Wound debrided: Left medial ankle Type of Debridement: Excisional debridement Anesthesia Used: 5% Lidocaine Gel Depth: Down to and including healthy tissue and in the subcutaneous layer Percentage of wound debrided: 100 Instrument Used: 5mm curette Tissue Removed: Slough and devitalized tissue Severity: Fat Layer Exposed Bleeding Controlled with: Pressure Patient tolerated procedure: Patient tolerated procedure well Post-Debridement Measurements and Additional Note: Post-Debridement Measurements/Treatment WC - Nurse 1 - General Ulcer Assessment Start: 01/03/24 08:11 Freq: Status: Active Protocol: SHANTA Activity Type Activity Date Activity User E-sign Co-sign Detail Recorded Client Recorded Date Recorded By Document 01/03/24 08:11 RB Desktop 01/03/24 08:13 RB Document 01/10/24 08:44 MT Desktop 01/10/24 08:50 OK 01/03/24 01/10/24 08:11 08:44 - Today's Visit Information Type of service Follow-up Visit Follow-up Visit (Physician/SUPERVISOR CHANNEL PROCESS (Physician/SUPERVISOR CHANNEL PROCESS ) ) Arrival Mode Ambulatory Ambulatory Transfer Assistance None Accompanied by self Patient Identification Verified (Name & Yes Yes ) Patient Requires Transmission-Based No Precautions Height and Weight Body Mass Index (BMI) 31.4 31.4 BMI Classification Obese Obese Vital Signs Temperature (97.8 F-99.1 F) 96.5 F L 97.2 F L Temperature Source Temporal Temporal Pulse Rate (60-100) 91 84 Pulse Location Monitor Monitor Respiratory Rate (12-18) 18 Respiratory rate source Observation Observation Oxygen Delivery Method Room Air Blood Pressure (90/60-120/80) 149/75 H 145/78 H Blood Pressure Mean (mm Hg) 99 100 Source Monitor Monitor Position Semi-Fowlers Sitting Blood Pressure Location Left Arm Left Arm History Since Last Visit- (Skip if this is Patient's initial visit) Have you changed medications since your No last visit? Any new allergies or adverse reactions No Had a fall/change in ADL's that may No increase risk of falls Signs or symptoms of abuse and/or No neglect since last visit Have you been in the hospital since your No last visit? Has dressing in place as prescribed Yes Has compression in place as prescribed Yes N/A Has offloadiing in place as prescribed No N/A Experienced any changes in pain level or No management Left Footwear Regular Shoe Right Footwear Regular Shoe Pain Scale: 0-10 Numeric Is Patient Pain Free? Yes Yes - Nurse 1 - General Ulcer Measurement Start: 01/03/24 08:11 Freq: Status: Active Protocol: Activity Type Activity Date Activity User E-sign Co-sign Detail Recorded Client Recorded Date Recorded By Document 01/03/24 08:11 [employer] 01/03/24 08:13 RB Document 01/10/24 08:44 OK Desktop 01/10/24 08:50 OK 01/03/24 01/10/24 08:11 08:44 Wound Center Nurse 1 #10 Left Medial Ankle -Combined with other wound No No -Current Size (cm) - Length 0.1 4 -Current Size (cm) - Width 0.1 2 -Current Size (cm) - Depth 0.1 0.2 -Total Square Cm 0.01 8 -Tunneling No No -Undermining/Tunneling No No -Circular Undermining No No -Exudate Amt Large Medium -Exudate Type Serosanguineous Serosanguineous -Wound Margin Distinct, Distinct, Outline Outline Attached Attached -Granulation Amt Medium (34-66%) Medium (34-66%) -Granulation Quality Tet[place] Tetonia -Slough/Fibrin Yes Yes -Necrosis Amt Medium (34-66%) Medium (34-66%) -Necrotic Tissue Type Adherent Slough Adherent Slough -Structure Exposed N/A N/A -Texture (Ara-wound Skin Appearance) Assessed, Assessed, Scarring Scarring -Moisture (Ara-wound Skin Appearance) Assessed -Color (Ara-wound Skin Appearance) Assessed, Assessed Hemosiderin Staining -Temperature (Ara-wound Skin No Abnormality No Abnormality Appearance) (Pt Warm) (Pt Warm) -Tenderness on Palpation (Ara-wound No No Skin Appearance) -Ulcer Cleansing Wound Cleanser Wound Cleanser -Foul Odor after Cleansing No No -Anesthetic Used 5% Lidocaine 5% Lidocaine Gel Gel Lower Limb Edema Present Yes Yes Left Calf (cm) 35.5 33.5 Left Ankle (cm) 23 23 WC - Nurse 2 - General Ulcer CM Notes Start: 01/03/24 08:11 Freq: Status: Active Protocol: Activity Type Activity Date Activity User E-sign Co-sign Detail Recorded Client Recorded Date Recorded By Document 01/03/24 08:26 GM Desktop 01/03/24 08:33 GM Document 01/10/24 09:10 Desktop 01/10/24 09:15 GM 01/03/24 01/10/24 08:26 09:10 Wound Center Nurse 2 #10 Left Medial Ankle -Time 08:26 09:10 -Correct Patient Yes Yes -Correct Side, Site, Position Yes Yes -Correct Procedure Yes Yes -Procedure Performed Yes Yes -Type of Procedure Debridement Debridement -Clinical Debridement Subcutaneous Subcutaneous -Tissue Removed Subcutaneous Subcutaneous -Post Debridement (cm) - Length 4 3.8 -Post Debridement (cm) - Width 2 2 -Post Debridement (cm) - Depth 0.3 0.3 -Total Square (Post) (cm) 8 7.6 -Area of Debridement (cm) - Length 4 3.8 -Area of Debridement (cm) - Width 2 2 -Total Square (Area) (cm) 8 7.6 -Tunneling No No -Undermining/Tunneling No No -Circular Undermining No No -Wound/Ulcer Outcome Not Healed Not Healed -Ulcer Cleansing Rinsed/ Rinsed/ Irrigated with Irrigated with Saline Saline -Foul Odor after Cleansing No No -Bioengineered Tissue No No -Bleeding Controlled with Pressure Pressure -Treatment Response Procedure Procedure Tolerated Well Tolerated Well -Debridement - Subq, 1st 20sq cm Yes Yes Pain Scale: 0-10 Numeric Is Patient Pain Free? Yes Yes - Nurse 3 - General Ulcer D/C NN Start: 01/03/24 08:11 Freq: Status: Active Protocol: Activity Type Activity Date Activity User E-sign Co-sign Detail Recorded Client Recorded Date Recorded By Document 01/03/24 08:33 GM Desktop 01/03/24 08:33 GM Document 01/10/24 09:18 GM Desktop 01/10/24 09:18 GM 01/03/24 01/10/24 08:33 09:18 Wound Care Center Nurse 3 #10 Left Medial Ankle -Ulcer Cleansing Not Cleansed Not Cleansed -Foul Odor after Cleansing No No -Primary Dressing Applied Fibracol Plus 4x4,NonAdherent Contact Layer -Other Dressing abd dressing -Primary Dressing Covered/Secured with Secured with Dry Gauze, Tape Secured with Tape -Fibracol Plus 4x4 1 Pain Scale: 0-10 Numeric Is Patient Pain Free? Yes Yes - Visit Discharge Discharge Condition Stable Stable Ambulatory Status Ambulatory Ambulatory Transportation Private Auto Medication Reconcilliation completed & Yes Yes provided to patient/care provider Clinical Summary of Care Provided Yes Yes Assessment/Plan Assessment/Plan (1) Ulcer of left lower extremity with fat layer exposed: CODE(S): L97.922 - Non-pressure chronic ulcer of unspecified part of left lower leg with fat layer exposed (2) PVD (peripheral vascular disease): CODE(S): I73.9 - Peripheral vascular disease, unspecified (3) Chronic venous insufficiency: CODE(S): I87.2 - Venous insufficiency (chronic) (peripheral) (4) Delayed wound healing: CODE(S): T14.8XXD - Other injury of unspecified body region, subsequent encounter PLAN: Plan Debridement done as documented above, procedure was well-tolerated. Stable. Continue 10 minutes Dakins soak daily. Continue Fibracol, cover with Keramax care. Adaptic over left dorsal foot area. He was advised that he could change it more than once if he notes increased drainage. Continue mupirocin ointment as well. Continue use of compression stockings, leg elevation and exercise. Increased protein intake, protein supplements, zinc and vitamin C also recommended. Continue multivitamins. Follows up with his PCP at the [facility]. He states that he had labs done in September and he is numbers were okay. History of borderline diabetes. Will request records. His questions were answered and he was advised to call with any further questions or concerns. Follow-up in 1 week. This note was generated with RadioFrameation software. It may contain incorrectwords, spelling, and punctuation that were not noted in checking the note beforesigning. 01/10/24 0940 <Electronically signed by Alice Amaya MD> Cosigner Signature (if applicable): CC: ~ Signed [facility] Work Phone: 1(237) 854-761003-07-2024 Progress note Author Alice Amaya [facility] January 03, 2024 8:44am Note Date/Time January 03, 2024 8:40 am [facility] [address] [place] [id number] Progress Note - Wound Care 01/03/24 0837 MR#: [id number] Acct: [id number] Name: RUBEN ALLEN Jr. Rep #:[id number] : 1965 58 From: Alice dickerson MD PCP: Dr. George Frausto MD Status :REG RCR Location: History of Present Illness Date of Service: 01/03/24 Chief Complaint: ulcers to the left lower leg History of Wound: This is a 54-year-old male presents to wound healing center with a long-standing history of chronic venous insufficiency, chronic venous hypertension, lower extremity edema, lower extremity pain, and chronic left lower extremity ulcer. 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 He is currently wearing graduated compression stockings which are documented to be 20-30 mmHg compression and these are thigh high. He reports great compliance with use. Heis also had previous arterial work-up with no intervention recommended by letter, his vascular surgeon. He denies taking nutritional supplementation. [facility] and had a biopsy of the ulcer site. He also was previously treated by infectious disease for various contaminations and infections. He is not antibiotics at this time nor does he have any redness or odor coming from the wound. He denies fever, chill, nausea, vomiting, loss of appetite. 05/18/22: Mr. Allen presents with a new right lower extremity ulceration. He states that this has been present for months and he has been trying to manage itat home without any significant improvement. Opened up months ago, no known precipitating factor. Has been applying wound dressings without any significantimprovement. He reports increased drainage. Denies significant pain. No chills, fever or feeling of unwell. Progress of Wound: No new concerns at this time. Overall stable. Objective Data Objective Data Vital Signs: Vital Signs Temp Pulse Resp BP Pulse Ox 96.5 F L 91 18 149/75 H 99 01/03/24 08:11 01/03/24 08:11 01/03/24 08:11 01/03/24 08:11 12/28/23 00:28 Body Mass Index (BMI) 31.4 Charges/Coding Procedures Integumentary 111xxx-113xx: 36662 Lakeisha subq tissue 20 sq cm/< Physical Exam Const alert, oriented x3 and no apparent distress General Appearance: cooperative and comfortable HEENT normocephalic Head and Scalp: normal to inspection, normocephalic and atraumatic Eyes EOMs intact bilaterally Neck full ROM and supple General: normal visual inspection Resp normal respiratory effort Effort and Inspection: able to speak in complete sentences Extremity normal to inspection General Extremity: edema Skin Wounds: wounds noted Neuro oriented x3 and CN's II-XII intact bilaterally Psych mental status grossly normal Appearance: grossly normal Debridement Note Debridement Note Wound debrided: Left medial ankle Type of Debridement: Excisional debridement Anesthesia Used: 5% Lidocaine Gel Depth: Down to and including healthy tissue and in the subcutaneous layer Percentage of wound debrided: 100 Instrument Used: 5mm curette Tissue Removed: Slough and devitalized tissue Severity: Fat Layer Exposed Bleeding Controlled with: Pressure Patient tolerated procedure: Patient tolerated procedure well Post-Debridement Measurements and Additional Note: Post-Debridement Measurements/Treatment - Nurse 1 - General Ulcer Assessment Start: 01/03/24 08:11 Freq: Status: Active Protocol: SHANTA Activity Type Activity Date Activity User E-sign Co-sign Detail Recorded Client Recorded Date Recorded By Document 01/03/24 08:11 RB Professional [employer] 01/03/24 08:13 RB 01/03/24 08:11 - Today's Visit Information Type of service Follow-up Visit (Physician/SUPERVISOR CHANNEL PROCESS ) Arrival Mode Ambulatory Transfer Assistance None Patient Identification Verified (Name & Yes ) Patient Requires Transmission-Based No Precautions Height and Weight Body Mass Index (BMI) 31.4 BMI Classification Obese Vital Signs Temperature (97.8 F-99.1 F) 96.5 F L Temperature Source Temporal Pulse Rate (60-100) 91 Pulse Location Monitor Respiratory Rate (12-18) 18 Respiratory rate source Observation Blood Pressure (90/60-120/80) 149/75 H Blood Pressure Mean (mm Hg) 99 Source Monitor Position Semi-Fowlers Blood Pressure Location Left Arm History Since Last Visit- (Skip if this is Patient's initial visit) Have you changed medications since your No last visit? Any new allergies or adverse reactions No Had a fall/change in ADL's that may No increase risk of falls Signs or symptoms of abuse and/or No neglect since last visit Have you been in the hospital since your No last visit? Has dressing in place as prescribed Yes Has compression in place as prescribed Yes Has offloadiing in place as prescribed No Experienced any changes in pain level or No management Pain Scale: 0-10 Numeric Is Patient Pain Free? Yes - Nurse 1 - General Ulcer Measurement Start: 01/03/24 08:11 Freq: Status: Active Protocol: Activity Type Activity Date Activity User E-sign Co-sign Detail Recorded Client Recorded Date Recorded By Document 01/03/24 08:11 RB Professional [employer] 01/03/24 08:13 RB 01/03/24 08:11 Wound Center Nurse 1 #10 Left Medial Ankle -Combined with other wound No -Current Size (cm) - Length 0.1 -Current Size (cm) - Width 0.1 -Current Size (cm) - Depth 0.1 -Total Square Cm 0.01 -Tunneling No -Undermining/Tunneling No -Circular Undermining No -Exudate Amt Large -Exudate Type Serosanguineous -Wound Margin Distinct, Outline Attached -Granulation Amt Medium (34-66%) -Granulation Quality [place] -Slough/Fibrin Yes -Necrosis Amt Medium (34-66%) -Necrotic Tissue Type Adherent Slough -Structure Exposed N/A -Texture (Ara-wound Skin Appearance) Assessed, Scarring -Color (Ara-wound Skin Appearance) Assessed, Hemosiderin Staining -Temperature (Ara-wound Skin No Abnormality Appearance) (Pt Warm) -Tenderness on Palpation (Ara-wound No Skin Appearance) -Ulcer Cleansing Wound Cleanser -Foul Odor after Cleansing No -Anesthetic Used 5% Lidocaine Gel Lower Limb Edema Present Yes Left Calf (cm) 35.5 Left Ankle (cm) 23 WC - Nurse 2 - General Ulcer CM Notes Start: 01/03/24 08:11 Freq: Status: Active Protocol: Activity Type Activity Date Activity User E-sign Co-sign Detail Recorded Client Recorded Date Recorded By Document 01/03/24 08:26 GM Desktop 01/03/24 08:33 GM 01/03/24 08:26 Wound Center Nurse 2 #10 Left Medial Ankle -Time 08:26 -Correct Patient Yes -Correct Side, Site, Position Yes -Correct Procedure Yes -Procedure Performed Yes -Type of Procedure Debridement -Clinical Debridement Subcutaneous -Tissue Removed Subcutaneous -Post Debridement (cm) - Length 4 -Post Debridement (cm) - Width 2 -Post Debridement (cm) - Depth 0.3 -Total Square (Post) (cm) 8 -Area of Debridement (cm) - Length 4 -Area of Debridement (cm) - Width 2 -Total Square (Area) (cm) 8 -Tunneling No -Undermining/Tunneling No -Circular Undermining No -Wound/Ulcer Outcome Not Healed -Ulcer Cleansing Rinsed/ Irrigated with Saline -Foul Odor after Cleansing No -Bioengineered Tissue No -Bleeding Controlled with Pressure -Treatment Response Procedure Tolerated Well -Debridement - Subq, 1st 20sq cm Yes Pain Scale: 0-10 Numeric Is Patient Pain Free? Yes WC - Nurse 3 - General Ulcer D/C NN Start: 01/03/24 08:11 Freq: Status: Active Protocol: Activity Type Activity Date Activity User E-sign Co-sign Detail Recorded Client Recorded Date Recorded By Document 01/03/24 08:33 GM Desktop 01/03/24 08:33 GM 01/03/24 08:33 Wound Care Center Nurse 3 #10 Left Medial Ankle -Ulcer Cleansing Not Cleansed -Foul Odor after Cleansing No -Other Dressing abd dressing -Primary Dressing Covered/Secured with Secured with Tape Pain Scale: 0-10 Numeric Is Patient Pain Free? Yes WC - Visit Discharge Discharge Condition Stable Ambulatory Status Ambulatory Medication Reconcilliation completed & Yes provided to patient/care provider Clinical Summary of Care Provided Yes Assessment/Plan Assessment/Plan (1) Ulcer of left lower extremity with fat layer exposed: CODE(S): L97.922 - Non-pressure chronic ulcer of unspecified part of left lower leg with fat layer exposed (2) PVD (peripheral vascular disease): CODE(S): I73.9 - Peripheral vascular disease, unspecified (3) Chronic venous insufficiency: CODE(S): I87.2 - Venous insufficiency (chronic) (peripheral) (4) Delayed wound healing: CODE(S): T14.8XXD - Other injury of unspecified body region, subsequent encounter PLAN: Plan Debridement done as documented above, procedure was well-tolerated. Continue 10 minutes Dakins soak daily. Continue Fibracol, cover with Keramax care. Adaptic over left dorsal foot area. He was advised that he could change it morethan once if he notes increased drainage. Continue mupirocin ointment as well. Continue use of compression stockings, leg elevation and exercise. Increased protein intake, protein supplements, zinc and vitamin C also recommended. Continue multivitamins. His questions were answered and he was advised to callwith any further questions or concerns. Follow-up in 1 week. This note was generated with IntelliDOT dictation software. It may contain incorrectwords, spelling, and punctuation that were not noted in checking the note beforesigning. 01/03/24 0844 <Electronically signed by Alice Amaya MD> Cosigner Signature (if applicable): CC: ~ Signed [facility] Work Phone: 1(205) 840-139002-23-2024 Miscellaneous Notes* Telephone Encounter - Juany Burkett - 12/21/2023 8:23 AM EST Patient has been identified by name and date of : Yes, Provider Jett Patient phones for refill(s): Requested Prescriptions Pending Prescriptions Disp Refills atorvastatin (LIPITOR) 20 mg tablet 90 tablet 1 Sig: Take 1 tablet by mouth daily at bedtime. For cholesterol. hydroCHLOROthiazide 25 mg tablet 90 tablet 1 Sig: Take 1 tablet by mouth once daily. Date of last office visit in primary care: 10/09/2023 Date of next office visit in primary care: 04/09/2024 Please advise. Thank you. Juany Aquino. documented in this encounterOhiohealth02-22-2024 Progress note Author Alice Amaya [facility] December 20, 2023 12:53pm Note Date/Time December 20, 2023 8:35am [facility] [address] [place] [id number] Progress Note - Wound Care 12/20/23 0828 MR#: [id number] Acct: [id number] Name: RUBEN ALLEN . Rep #:[id number] : 1965 58 From: Alice dickerson MD PCP: Dr. George Frausto MD Status :REG RCR Location: History of Present Illness Date of Service: 12/20/23 Chief Complaint: ulcers to the left lower leg History of Wound: This is a 54-year-old male presents to wound healing center with a long-standing history of chronic venous insufficiency, chronic venous hypertension, lower extremity edema, lower extremity pain, and chronic left lower extremity ulcer. 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 He is currently wearing graduated compression stockings which are documented to be 20-30 mmHg compression and these are thigh high. He reports great compliance with use. Heis also had previous arterial work-up with no intervention recommended by letter, his vascular surgeon. He denies taking nutritional supplementation. [facility] and had a biopsy of the ulcer site. He also was previously treated by infectious disease for various contaminations and infections. He is not antibiotics at this time nor does he have any redness or odor coming from the wound. He denies fever, chill, nausea, vomiting, loss of appetite. 05/18/22: Mr. Allen presents with a new right lower extremity ulceration. He states that this has been present for months and he has been trying to manage itat home without any significant improvement. Opened up months ago, no known precipitating factor. Has been applying wound dressings without any significantimprovement. He reports increased drainage. Denies significant pain. No chills, fever or feeling of unwell. Progress of Wound: No new concerns at this time. Dorsal foot stays healed. Tolerating Fibracol well. Objective Data Objective Data Vital Signs: Vital Signs Temp Pulse Resp BP Pulse Ox 96.1 F L 92 18 157/76 H 99 12/20/23 08:11 12/20/23 08:11 12/20/23 08:11 12/20/23 08:11 11/29/23 00:29 Body Mass Index (BMI) 31.4 Charges/Coding Procedures Integumentary 111xxx-113xx: 68629 Lakeisha subq tissue 20 sq cm/< Physical Exam Const alert, oriented x3 and no apparent distress General Appearance: cooperative and comfortable HEENT normocephalic Head and Scalp: normal to inspection, normocephalic and atraumatic Eyes EOMs intact bilaterally Neck full ROM and supple General: normal visual inspection Resp normal respiratory effort Effort and Inspection: able to speak in complete sentences Extremity normal to inspection General Extremity: edema Skin Wounds: wounds noted Neuro oriented x3 and CN's II-XII intact bilaterally Psych mental status grossly normal Appearance: grossly normal Debridement Note Debridement Note Wound debrided: Left medial ankle Type of Debridement: Excisional debridement Anesthesia Used: 5% Lidocaine Gel Depth: Down to and including healthy tissue and in the subcutaneous layer Percentage of wound debrided: 100 Instrument Used: 5mm curette Tissue Removed: Slough and devitalized tissue Severity: Fat Layer Exposed Bleeding Controlled with: Pressure Patient tolerated procedure: Patient tolerated procedure well Post-Debridement Measurements and Additional Note: Post-Debridement Measurements/Treatment KIMBERLY - Nurse 1 - General Ulcer Assessment Start: 12/06/23 08:01 Freq: Status: Active Protocol: SHANTA Activity Type Activity Date Activity User E-sign Co-sign Detail Recorded Client Recorded Date Recorded By Document 12/06/23 08:01 DL Desktop 12/06/23 08:06 DL Document 12/20/23 08:11 RB Desktop 12/20/23 08:13 RB 12/06/23 12/20/23 08:01 08:11 - Today's Visit Information Type of service Follow-up Visit Follow-up Visit (Physician/SUPERVISOR CHANNEL PROCESS (Physician/SUPERVISOR CHANNEL PROCESS ) ) Arrival Mode Ambulatory Ambulatory Transfer Assistance None None Patient Identification Verified (Name & Yes Yes ) Patient Requires Transmission-Based No No Precautions Safety Precautions NA Height and Weight Body Mass Index (BMI) 31.4 31.4 BMI Classification Obese Obese Vital Signs Temperature (97.8 F-99.1 F) 95.8 F L 96.1 F L Temperature Source Temporal Temporal Pulse Rate (60-100) 92 92 Pulse Location Monitor Monitor Respiratory Rate (12-18) 20 H 18 Respiratory rate source Observation Observation Blood Pressure (90/60-120/80) 148/76 H 157/76 H Blood Pressure Mean (mm Hg) 100 103 Source Monitor Monitor Position Semi-Fowlers Blood Pressure Location Left Arm History Since Last Visit- (Skip if this is Patient's initial visit) Have you changed medications since your No No last visit? Any new allergies or adverse reactions No No Had a fall/change in ADL's that may No No increase risk of falls Signs or symptoms of abuse and/or No No neglect since last visit Have you been in the hospital since your No No last visit? Has dressing in place as prescribed Yes Yes Has compression in place as prescribed Yes Yes Has offloadiing in place as prescribed N/A No Experienced any changes in pain level or No No management Pain Scale: 0-10 Numeric Is Patient Pain Free? Yes Yes - Nurse 1 - General Ulcer Measurement Start: 12/06/23 08:01 Freq: Status: Active Protocol: Activity Type Activity Date Activity User E-sign Co-sign Detail Recorded Client Recorded Date Recorded By Document 12/06/23 08:01 DL Desktop 12/06/23 08:06 DL Document 12/20/23 08:11 RB Desktop 12/20/23 08:13 RB 12/06/23 12/20/23 08:01 08:11 Wound Center Nurse 1 #17- L DORSAL FOOT -Current Size (cm) - Length 0.1 -Current Size (cm) - Width 0.1 -Current Size (cm) - Depth 0.1 -Total Square Cm 0.01 -Wound Margin Indistinct, Non -Visible -Granulation Amt Large (67-100%) -Granulation Quality [place] -Necrosis Amt None Present (0 %) -Structure Exposed N/A -Texture (Ara-wound Skin Appearance) Scarring -Moisture (Ara-wound Skin Appearance) Dry/Scaly -Color (Ara-wound Skin Appearance) Hemosiderin Staining -Temperature (Ara-wound Skin No Abnormality Appearance) (Pt Warm) -Tenderness on Palpation (Ara-wound No Skin Appearance) -Ulcer Cleansing Soap and Water -Foul Odor after Cleansing No -Anesthetic Used 5% Lidocaine Gel #10 Left Medial Ankle -Combined with other wound No -Current Size (cm) - Length 3.5 3.8 -Current Size (cm) - Width 1.8 1.6 -Current Size (cm) - Depth 0.2 0.2 -Total Square Cm 6.30 6.08 -Photo Taken Yes -Tunneling No -Undermining/Tunneling No -Circular Undermining No -Exudate Amt Medium Medium -Exudate Type Serosanguineous Serosanguineous -Wound Margin Distinct, Thickened Outline Attached -Granulation Amt Medium (34-66%) Medium (34-66%) -Granulation Quality Red [place] -Slough/Fibrin Yes -Necrosis Amt Medium (34-66%) Medium (34-66%) -Necrotic Tissue Type Adherent Slough Adherent Slough -Structure Exposed N/A N/A -Texture (Ara-wound Skin Appearance) Scarring Assessed, Scarring -Moisture (Ara-wound Skin Appearance) Dry/Scaly Assessed -Color (Ara-wound Skin Appearance) Hemosiderin Assessed Staining -Temperature (Ara-wound Skin No Abnormality No Abnormality Appearance) (Pt Warm) (Pt Warm) -Tenderness on Palpation (Ara-wound No No Skin Appearance) -Ulcer Cleansing Soap and Water Wound Cleanser -Foul Odor after Cleansing No No -Anesthetic Used 5% Lidocaine 5% Lidocaine Gel Gel Lower Limb Edema Present Yes Left Calf (cm) 35.7 36 Left Ankle (cm) 22.7 23.4 WC - Nurse 2 - General Ulcer CM Notes Start: 12/06/23 08:01 Freq: Status: Active Protocol: Activity Type Activity Date Activity User E-sign Co-sign Detail Recorded Client Recorded Date Recorded By Document 12/06/23 08:17 GM Desktop 12/06/23 08:24 GM Document 12/20/23 08:21 GM Desktop 12/20/23 08:25 GM 12/06/23 12/20/23 08:17 08:21 Wound Center Nurse 2 #17- L DORSAL FOOT -Time 08:17 -Tunneling No -Undermining/Tunneling No -Circular Undermining No -Wound/Ulcer Outcome Healed- Epithelialized #10 Left Medial Ankle -Time 08:23 08:21 -Correct Patient Yes Yes -Correct Side, Site, Position Yes Yes -Correct Procedure Yes Yes -Procedure Performed Yes Yes -Type of Procedure Debridement Debridement -Clinical Debridement Subcutaneous Subcutaneous -Tissue Removed Subcutaneous Subcutaneous -Post Debridement (cm) - Length 3.5 3.5 -Post Debridement (cm) - Width 2.3 2.1 -Post Debridement (cm) - Depth 0.3 0.3 -Total Square (Post) (cm) 8.05 7.35 -Area of Debridement (cm) - Length 3.5 -Area of Debridement (cm) - Width 2.1 -Total Square (Area) (cm) 7.35 -Tunneling No No -Undermining/Tunneling No No -Circular Undermining No No -Wound/Ulcer Outcome Not Healed Not Healed -Ulcer Cleansing Rinsed/ Rinsed/ Irrigated with Irrigated with Saline Saline -Foul Odor after Cleansing No No -Bioengineered Tissue No No -Bleeding Controlled with Pressure Pressure -Treatment Response Procedure Procedure Tolerated Well Tolerated Well -Debridement - Subq, 1st 20sq cm Yes Yes Pain Scale: 0-10 Numeric Is Patient Pain Free? Yes Yes WC - Nurse 3 - General Ulcer D/C NN Start: 12/06/23 08:01 Freq: Status: Active Protocol: Activity Type Activity Date Activity User E-sign Co-sign Detail Recorded Client Recorded Date Recorded By Document 12/06/23 08:27 Desktop 12/06/23 08:28 GM 12/06/23 08:27 Wound Care Center Nurse 3 #10 Left Medial Ankle -Ulcer Cleansing Not Cleansed -Foul Odor after Cleansing No -Primary Dressing Applied Fibracol Plus 4x4 -Primary Dressing Covered/Secured with Dry Gauze, Secured with Tape -Fibracol Plus 4x4 1 Pain Scale: 0-10 Numeric Is Patient Pain Free? Yes Teaching: Wound Center Dressing your wound w/hydroferra blue -Person Taught Patient -Teaching Method Discussion, Demonstration -Response to teaching Verbalize understanding WC - Visit Discharge Discharge Condition Stable Ambulatory Status Ambulatory Transportation Private Auto Medication Reconcilliation completed & Yes provided to patient/care provider Clinical Summary of Care Provided Yes Assessment/Plan Assessment/Plan (1) Ulcer of left lower extremity with fat layer exposed: CODE(S): L97.922 - Non-pressure chronic ulcer of unspecified part of left lower leg with fat layer exposed (2) PVD (peripheral vascular disease): CODE(S): I73.9 - Peripheral vascular disease, unspecified (3) Chronic venous insufficiency: CODE(S): I87.2 - Venous insufficiency (chronic) (peripheral) (4) Delayed wound healing: CODE(S): T14.8XXD - Other injury of unspecified body region, subsequent encounter PLAN: Plan Debridement done as documented above, procedure was well-tolerated. Continue 10 minutes Dakins soak daily, Fibracol, cover with Keramax care. Adaptic over left dorsal foot area. He was advised that he could change it more than once ifhe notes increased drainage. Continue mupirocin ointment as well. Continue useof compression stockings, leg elevation and exercise. Increased protein intake,protein supplements, zinc and vitamin C also recommended. Continue multivitamins. His questions were answered and he was advised to call with anyfurther questions or concerns. Follow-up in 2 weeks. This note was generated with IntelliDOT dictation software. It may contain incorrectwords, spelling, and punctuation that were not noted in checking the note beforesigning. 12/20/23 1253 <Electronically signed by Alice Amaya MD> Cosigner Signature (if applicable): CC: ~ Signed [facility] Work Phone: [phone]) 342-872802-08-2024 Progress note Author Alice Amaya [facility] December 06, 2023 4:20pm Note Date/Time December 06, 2023 8 :35am [facility] [address] [place] [address] Progress Note - Wound Care 12/06/23 0829 MR#: [id number] Acct: [id number] Name: RUBEN ALLEN Jr. Rep #:[id number] : 1965 58 From: Alice dickerson MD PCP: Dr. George Frausto MD Status :REG RCR Location: History of Present Illness Date of Service: 12/06/23 Chief Complaint: ulcers to the left lower leg History of Wound: This is a 54-year-old male presents to wound healing center with a long-standing history of chronic venous insufficiency, chronic venous hypertension, lower extremity edema, lower extremity pain, and chronic left lower extremity ulcer. 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 He is currently wearing graduated compression stockings which are documented to be 20-30 mmHg compression and these are thigh high. He reports great compliance with use. Heis also had previous arterial work-up with no intervention recommended by letter, his vascular surgeon. He denies taking nutritional supplementation. [facility] and had a biopsy of the ulcer site. He also was previously treated by infectious disease for various contaminations and infections. He is not antibiotics at this time nor does he have any redness or odor coming from the wound. He denies fever, chill, nausea, vomiting, loss of appetite. 05/18/22: Mr. Allen presents with a new right lower extremity ulceration. He states that this has been present for months and he has been trying to manage itat home without any significant improvement. Opened up months ago, no known precipitating factor. Has been applying wound dressings without any significantimprovement. He reports increased drainage. Denies significant pain. No chills, fever or feeling of unwell. Progress of Wound: No new concerns at this time. Dorsal foot essentially healed. He denies increased drainage. Objective Data Objective Data Vital Signs: Vital Signs Temp Pulse Resp BP Pulse Ox 95.8 F L 92 20 H 148/76 H 99 12/06/23 08:01 12/06/23 08:01 12/06/23 08:01 12/06/23 08:01 11/29/23 00:29 Body Mass Index (BMI) 31.4 Charges/Coding Procedures Integumentary 111xxx-113xx: 63019 Lakeisha subq tissue 20 sq cm/< Physical Exam Const alert, oriented x3 and no apparent distress General Appearance: cooperative and comfortable HEENT normocephalic Head and Scalp: normal to inspection, normocephalic and atraumatic Eyes EOMs intact bilaterally Neck full ROM and supple General: normal visual inspection Resp normal respiratory effort Effort and Inspection: able to speak in complete sentences Extremity normal to inspection General Extremity: edema Skin Wounds: wounds noted Neuro oriented x3 and CN's II-XII intact bilaterally Psych mental status grossly normal Appearance: grossly normal Debridement Note Debridement Note Wound debrided: Left medial ankle Type of Debridement: Excisional debridement Anesthesia Used: 5% Lidocaine Gel Depth: Down to and including healthy tissue and in the subcutaneous layer Percentage of wound debrided: 100 Instrument Used: 5mm curette Tissue Removed: Slough and devitalized tissue Severity: Fat Layer Exposed Bleeding Controlled with: Pressure Patient tolerated procedure: Patient tolerated procedure well Post-Debridement Measurements and Additional Note: Post-Debridement Measurements/Treatment - Nurse 1 - General Ulcer Assessment Start: 12/06/23 08:01 Freq: Status: Active Protocol: SHANTA Activity Type Activity Date Activity User E-sign Co-sign Detail Recorded Client Recorded Date Recorded By Document 12/06/23 08:01 Desktop 12/06/23 08:06 DL 12/06/23 08:01 - Today's Visit Information Type of service Follow-up Visit (Physician/SUPERVISOR CHANNEL PROCESS ) Arrival Mode Ambulatory Transfer Assistance None Patient Identification Verified (Name & Yes ) Patient Requires Transmission-Based No Precautions Safety Precautions NA Height and Weight Body Mass Index (BMI) 31.4 BMI Classification Obese Vital Signs Temperature (97.8 F-99.1 F) 95.8 F L Temperature Source Temporal Pulse Rate (60-100) 92 Pulse Location Monitor Respiratory Rate (12-18) 20 H Respiratory rate source Observation Blood Pressure (90/60-120/80) 148/76 H Blood Pressure Mean (mm Hg) 100 Source Monitor History Since Last Visit- (Skip if this is Patient's initial visit) Have you changed medications since your No last visit? Any new allergies or adverse reactions No Had a fall/change in ADL's that may No increase risk of falls Signs or symptoms of abuse and/or No neglect since last visit Have you been in the hospital since your No last visit? Has dressing in place as prescribed Yes Has compression in place as prescribed Yes Has offloadiing in place as prescribed N/A Experienced any changes in pain level or No management Pain Scale: 0-10 Numeric Is Patient Pain Free? Yes WC - Nurse 1 - General Ulcer Measurement Start: 12/06/23 08:01 Freq: Status: Active Protocol: Activity Type Activity Date Activity User E-sign Co-sign Detail Recorded Client Recorded Date Recorded By Document 12/06/23 08:01 DL Desktop 12/06/23 08:06 DL 12/06/23 08:01 Wound Center Nurse 1 #17- L DORSAL FOOT -Current Size (cm) - Length 0.1 -Current Size (cm) - Width 0.1 -Current Size (cm) - Depth 0.1 -Total Square Cm 0.01 -Wound Margin Indistinct, Non -Visible -Granulation Amt Large (67-100%) -Granulation Quality [place] -Necrosis Amt None Present (0 %) -Structure Exposed N/A -Texture (Ara-wound Skin Appearance) Scarring -Moisture (Ara-wound Skin Appearance) Dry/Scaly -Color (Ara-wound Skin Appearance) Hemosiderin Staining -Temperature (Ara-wound Skin No Abnormality Appearance) (Pt Warm) -Tenderness on Palpation (Ara-wound No Skin Appearance) -Ulcer Cleansing Soap and Water -Foul Odor after Cleansing No -Anesthetic Used 5% Lidocaine Gel #10 Left Medial Ankle -Current Size (cm) - Length 3.5 -Current Size (cm) - Width 1.8 -Current Size (cm) - Depth 0.2 -Total Square Cm 6.30 -Exudate Amt Medium -Exudate Type Serosanguineous -Wound Margin Distinct, Outline Attached -Granulation Amt Medium (34-66%) -Granulation Quality Red -Necrosis Amt Medium (34-66%) -Necrotic Tissue Type Adherent Slough -Structure Exposed N/A -Texture (Ara-wound Skin Appearance) Scarring -Moisture (Ara-wound Skin Appearance) Dry/Scaly -Color (Ara-wound Skin Appearance) Hemosiderin Staining -Temperature (Ara-wound Skin No Abnormality Appearance) (Pt Warm) -Tenderness on Palpation (Ara-wound No Skin Appearance) -Ulcer Cleansing Soap and Water -Foul Odor after Cleansing No -Anesthetic Used 5% Lidocaine Gel Left Calf (cm) 35.7 Left Ankle (cm) 22.7 - Nurse 2 - General Ulcer CM Notes Start: 12/06/23 08:01 Freq: Status: Active Protocol: Activity Type Activity Date Activity User E-sign Co-sign Detail Recorded Client Recorded Date Recorded By Document 12/06/23 08:17 Desktop 12/06/23 08:24 12/06/23 08:17 Wound Center Nurse 2 #17- L DORSAL FOOT -Time 08:17 -Tunneling No -Undermining/Tunneling No -Circular Undermining No -Wound/Ulcer Outcome Healed- Epithelialized #10 Left Medial Ankle -Time 08:23 -Correct Patient Yes -Correct Side, Site, Position Yes -Correct Procedure Yes -Procedure Performed Yes -Type of Procedure Debridement -Clinical Debridement Subcutaneous -Tissue Removed Subcutaneous -Post Debridement (cm) - Length 3.5 -Post Debridement (cm) - Width 2.3 -Post Debridement (cm) - Depth 0.3 -Total Square (Post) (cm) 8.05 -Tunneling No -Undermining/Tunneling No -Circular Undermining No -Wound/Ulcer Outcome Not Healed -Ulcer Cleansing Rinsed/ Irrigated with Saline -Foul Odor after Cleansing No -Bioengineered Tissue No -Bleeding Controlled with Pressure -Treatment Response Procedure Tolerated Well -Debridement - Subq, 1st 20sq cm Yes Pain Scale: 0-10 Numeric Is Patient Pain Free? Yes - Nurse 3 - General Ulcer D/C NN Start: 12/06/23 08:01 Freq: Status: Active Protocol: Activity Type Activity Date Activity User E-sign Co-sign Detail Recorded Client Recorded Date Recorded By Document 12/06/23 08:27 Desktop 12/06/23 08:28 12/06/23 08:27 Wound Care Center Nurse 3 #10 Left Medial Ankle -Ulcer Cleansing Not Cleansed -Foul Odor after Cleansing No -Primary Dressing Applied Fibracol Plus 4x4 -Primary Dressing Covered/Secured with Dry Gauze, Secured with Tape -Fibracol Plus 4x4 1 Pain Scale: 0-10 Numeric Is Patient Pain Free? Yes Teaching: Wound Center Dressing your wound w/hydroferra blue -Person Taught Patient -Teaching Method Discussion, Demonstration -Response to teaching Verbalize understanding WC - Visit Discharge Discharge Condition Stable Ambulatory Status Ambulatory Transportation Private Auto Medication Reconcilliation completed & Yes provided to patient/care provider Clinical Summary of Care Provided Yes Assessment/Plan Assessment/Plan (1) Ulcer of left lower extremity with fat layer exposed: CODE(S): L97.922 - Non-pressure chronic ulcer of unspecified part of left lower leg with fat layer exposed (2) PVD (peripheral vascular disease): CODE(S): I73.9 - Peripheral vascular disease, unspecified (3) Chronic venous insufficiency: CODE(S): I87.2 - Venous insufficiency (chronic) (peripheral) (4) Delayed wound healing: CODE(S): T14.8XXD - Other injury of unspecified body region, subsequent encounter PLAN: Plan Debridement done as documented above, procedure was well-tolerated. Slight increase in depth. He denies increased drainage or pain. Dorsal foot as above is healed. Switch to Fibracol, cover with gauze. Continue 10 minutes Dakins soak daily. Adaptic over right dorsal foot area. Continue left medial ankle Care Max Care to left medial ankle. He was advised that he could change it more than once if he notes increased drainage. Continue mupirocin ointment as well. Continue use of compression stockings, leg elevation and exercise. Increased protein intake, protein supplements, zinc and vitamin C also recommended. Continue multivitamins. His questions were answered and he was advised to callwith any further questions or concerns. Follow-up in 2 weeks. This note was generated with IntelliDOT dictation software. It may contain incorrectwords, spelling, and punctuation that were not noted in checking the note beforesigning. 12/06/23 1620 <Electronically signed by Alice Amaya MD> Cosigner Signature (if applicable): CC: ~ Signed [facility] Work Phone: [phone]) 506-941101-25-2024 Progress note Author Alice Amaya [facility] November 22, 2023 8:51am Note Date/Time November 22, 2023 8 :49am [facility] [address] [place], [place] [address] [address] Progress Note - Wound Care 11/22/23 0843 MR#: [id number] Acct: [id number] Name: RUBEN ALLEN Jr. Rep #:[id number] 02 : 1965 58 From: Alice dickerson MD PCP: Dr. George Frausto MD Status :REG RCR Location: History of Present Illness Date of Service: 11/22/23 Chief Complaint: ulcers to the left lower leg History of Wound: This is a 54-year-old male presents to wound healing center with a long-standing history of chronic venous insufficiency, chronic venous hypertension, lower extremity edema, lower extremity pain, and chronic left lower extremity ulcer. 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 He is currently wearing graduated compression stockings which are documented to be 20-30 mmHg compression and these are thigh high. He reports great compliance with use. Heis also had previous arterial work-up with no intervention recommended by letter, his vascular surgeon. He denies taking nutritional supplementation. [facility] and had a biopsy of the ulcer site. He also was previously treated by infectious disease for various contaminations and infections. He is not antibiotics at this time nor does he have any redness or odor coming from the wound. He denies fever, chill, nausea, vomiting, loss of appetite. 05/18/22: Mr. Allen presents with a new right lower extremity ulceration. He states that this has been present for months and he has been trying to manage itat home without any significant improvement. Opened up months ago, no known precipitating factor. Has been applying wound dressings without any significantimprovement. He reports increased drainage. Denies significant pain. No chills, fever or feeling of unwell. Progress of Wound: Largely stable. No new concerns reported at this time. Objective Data Objective Data Vital Signs: Vital Signs Temp Pulse Resp BP Pulse Ox 96.4 F L 88 18 152/66 H 99 11/22/23 07:59 11/22/23 07:59 11/22/23 07:59 11/22/23 07:59 10/29/23 00:46 Body Mass Index (BMI) 31.4 Charges/Coding Procedures Integumentary 111xxx-113xx: 68809 Lakeisha subq tissue 20 sq cm/< Physical Exam Const alert, oriented x3 and no apparent distress General Appearance: cooperative and comfortable HEENT normocephalic Head and Scalp: normal to inspection, normocephalic and atraumatic Eyes EOMs intact bilaterally Neck full ROM and supple General: normal visual inspection Resp normal respiratory effort Effort and Inspection: able to speak in complete sentences Extremity normal to inspection General Extremity: edema Skin Wounds: wounds noted Neuro oriented x3 and CN's II-XII intact bilaterally Psych mental status grossly normal Appearance: grossly normal Debridement Note Debridement Note Wound debrided: Left medial ankle Type of Debridement: Excisional debridement Anesthesia Used: 5% Lidocaine Gel Depth: Down to and including healthy tissue and in the subcutaneous layer Percentage of wound debrided: 100 Instrument Used: 5mm curette Tissue Removed: Slough and devitalized tissue Severity: Fat Layer Exposed Bleeding Controlled with: Pressure Patient tolerated procedure: Patient tolerated procedure well Post-Debridement Measurements and Additional Note: Post-Debridement Measurements/Treatment - Nurse 1 - General Ulcer Assessment Start: 11/08/23 08:07 Freq: Status: Active Protocol: [email or web address] Activity Type Activity Date Activity User E-sign Co-sign Detail Recorded Client Recorded Date Recorded By Document 11/08/23 08:07 DL Desktop 11/08/23 08:11 DL Document 11/22/23 07:59 DL Desktop 11/22/23 08:05 DL 11/08/23 11/22/23 08:07 07:59 - Today's Visit Information Type of service Follow-up Visit Follow-up Visit (Physician/SUPERVISOR CHANNEL PROCESS (Physician/SUPERVISOR CHANNEL PROCESS ) ) Arrival Mode Ambulatory Ambulatory Transfer Assistance None None Patient Identification Verified (Name & Yes Yes ) Patient Requires Transmission-Based No No Precautions Height and Weight Body Mass Index (BMI) 31.4 31.4 BMI Classification Obese Obese Vital Signs Temperature (97.8 F-99.1 F) 96.1 F L 96.4 F L Temperature Source Temporal Temporal Pulse Rate (60-100) 91 88 Pulse Location Monitor Monitor Respiratory Rate (12-18) 20 H 18 Respiratory rate source Observation Observation Blood Pressure (90/60-120/80) 154/71 H 152/66 H Blood Pressure Mean (mm Hg) 98 94 Source Monitor Monitor History Since Last Visit- (Skip if this is Patient's initial visit) Have you changed medications since your No No last visit? Any new allergies or adverse reactions No No Had a fall/change in ADL's that may No No increase risk of falls Signs or symptoms of abuse and/or No No neglect since last visit Have you been in the hospital since your No No last visit? Has dressing in place as prescribed Yes Yes Has compression in place as prescribed Yes Yes Has offloadiing in place as prescribed N/A N/A Experienced any changes in pain level or No No management Pain Scale: 0-10 Numeric Is Patient Pain Free? Yes Yes WC - Nurse 1 - General Ulcer Measurement Start: 11/08/23 08:07 Freq: Status: Active Protocol: Activity Type Activity Date Activity User E-sign Co-sign Detail Recorded Client Recorded Date Recorded By Document 11/08/23 08:07 DL Desktop 11/08/23 08:11 DL Document 11/22/23 07:59 DL Desktop 11/22/23 08:05 DL 11/08/23 11/22/23 08:07 07:59 Wound Center Nurse 1 #17- L DORSAL FOOT -Current Size (cm) - Length 1 0.1 -Current Size (cm) - Width 0.1 0.1 -Current Size (cm) - Depth 0.1 0.1 -Total Square Cm 0.1 0.01 -Photo Taken Yes -Exudate Amt None Present None Present -Wound Margin Thickened Flat & Intact -Granulation Amt Large (67-100%) Small (1-33%) -Granulation Quality Pale Pale -Necrosis Amt Small (1-33%) Small (1-33%) -Necrotic Tissue Type Adherent Slough Adherent Slough -Structure Exposed N/A N/A -Texture (Ara-wound Skin Appearance) Scarring Scarring -Moisture (Ara-wound Skin Appearance) Dry/Scaly No Abnormality -Color (Ara-wound Skin Appearance) Hemosiderin Hemosiderin Staining Staining -Temperature (Ara-wound Skin No Abnormality No Abnormality Appearance) (Pt Warm) (Pt Warm) -Tenderness on Palpation (Ara-wound No Skin Appearance) -Ulcer Cleansing Soap and Water Soap and Water -Foul Odor after Cleansing No No -Anesthetic Used 5% Lidocaine 5% Lidocaine Gel Gel #10 Left Medial Ankle -Current Size (cm) - Length 3.3 4 -Current Size (cm) - Width 1.9 1.9 -Current Size (cm) - Depth 0.2 0.2 -Total Square Cm 6.27 7.6 -Photo Taken Yes -Exudate Amt Medium Medium -Exudate Type Serosanguineous Serosanguineous -Wound Margin Distinct, Distinct, Outline Outline Attached Attached -Granulation Amt Medium (34-66%) Medium (34-66%) -Granulation Quality [place],Red Red -Necrosis Amt Medium (34-66%) Medium (34-66%) -Necrotic Tissue Type Adherent Slough Adherent Slough -Structure Exposed N/A N/A -Texture (Ara-wound Skin Appearance) Scarring Scarring -Moisture (Ara-wound Skin Appearance) Dry/Scaly No Abnormality -Color (Ara-wound Skin Appearance) Hemosiderin Hemosiderin Staining Staining -Temperature (Ara-wound Skin No Abnormality No Abnormality Appearance) (Pt Warm) (Pt Warm) -Tenderness on Palpation (Ara-wound No No Skin Appearance) -Ulcer Cleansing Soap and Water Soap and Water -Foul Odor after Cleansing No No -Anesthetic Used 5% Lidocaine 5% Lidocaine Gel Gel Left Calf (cm) 35.3 36.3 Left Ankle (cm) 23.3 22.8 WC - Nurse 2 - General Ulcer CM Notes Start: 11/08/23 08:07 Freq: Status: Active Protocol: Activity Type Activity Date Activity User E-sign Co-sign Detail Recorded Client Recorded Date Recorded By Document 11/08/23 08:23 Desktop 11/08/23 08:31 Document 11/22/23 08:23 [id number] 11/22/23 08:36 11/08/23 11/22/23 08:23 08:23 Wound Center Nurse 2 #17- L DORSAL FOOT -Time 08:24 08:23 -Correct Patient Yes Yes -Correct Side, Site, Position Yes Yes -Correct Procedure Yes Yes -Procedure Performed Yes Yes -Type of Procedure Debridement Debridement -Clinical Debridement Subcutaneous Subcutaneous -Tissue Removed Subcutaneous Subcutaneous -Post Debridement (cm) - Length 1.0 1 -Post Debridement (cm) - Width 0.1 0.1 -Post Debridement (cm) - Depth 0.1 0.1 -Total Square (Post) (cm) 0.10 0.1 -Area of Debridement (cm) - Length 1.0 1 -Area of Debridement (cm) - Width 0.1 0.1 -Total Square (Area) (cm) 0.10 0.1 -Tunneling No No -Undermining/Tunneling No No -Circular Undermining No No -Wound/Ulcer Outcome Not Healed Not Healed -Ulcer Cleansing Rinsed/ Rinsed/ Irrigated with Irrigated with Saline Saline -Foul Odor after Cleansing No No -Bioengineered Tissue No No -Bleeding Controlled with Pressure Pressure -Treatment Response Procedure Procedure Tolerated Well Tolerated Well -Debridement - Subq, 1st 20sq cm No No #10 Left Medial Ankle -Time 08: 08:26 -Correct Patient Yes Yes -Correct Side, Site, Position Yes Yes -Correct Procedure Yes Yes -Procedure Performed Yes Yes -Type of Procedure Debridement Debridement -Clinical Debridement Subcutaneous Subcutaneous -Tissue Removed Subcutaneous Subcutaneous -Post Debridement (cm) - Length 3.5 3.5 -Post Debridement (cm) - Width 1.9 2.0 -Post Debridement (cm) - Depth 0.2 0.1 -Total Square (Post) (cm) 6.65 7.00 -Area of Debridement (cm) - Length 3.5 3.5 -Area of Debridement (cm) - Width 1.9 2.0 -Total Square (Area) (cm) 6.65 7.00 -Tunneling No No -Undermining/Tunneling No No -Circular Undermining No No -Wound/Ulcer Outcome Not Healed Not Healed -Ulcer Cleansing Rinsed/ Rinsed/ Irrigated with Irrigated with Saline Saline -Foul Odor after Cleansing No No -Bioengineered Tissue No No -Bleeding Controlled with Pressure Pressure -Treatment Response Procedure Procedure Tolerated Well Tolerated Well -Debridement - Subq, 1st 20sq cm Yes Yes Pain Scale: 0-10 Numeric Is Patient Pain Free? 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 Yes Yes Teaching: Wound Center Dressing your wound w/hydroferra blue -Person Taught Patient -Teaching Method Discussion, Demonstration -Response to teaching Verbalize understanding WC - Visit Discharge Discharge Condition Stable Stable Ambulatory Status Ambulatory Ambulatory Transportation Private Auto Private Auto Medication Reconcilliation completed & Yes provided to patient/care provider Clinical Summary of Care Provided Yes Additional Wound Wound debrided: Left dorsal foot Type of Debridement: Excisional debridement Anesthesia Used: 5% Lidocaine Gel Depth: Down to and including healthy tissue and in the subcutaneous layer Percentage of wound debrided: 100 Instrument Used: 3mm curette Tissue Removed: Slough and devitalized tissue Severity: Fat Layer Exposed Amount of bleeding with debridement: Mild Bleeding Controlled with: Pressure Patient tolerated procedure: Patient tolerated procedure well Assessment/Plan Assessment/Plan (1) Ulcer of left lower extremity with fat layer exposed: CODE(S): L97.922 - Non-pressure chronic ulcer of unspecified part of left lower leg with fat layer exposed (2) PVD (peripheral vascular disease): CODE(S): I73.9 - Peripheral vascular disease, unspecified (3) Chronic venous insufficiency: CODE(S): I87.2 - Venous insufficiency (chronic) (peripheral) (4) Delayed wound healing: CODE(S): T14.8XXD - Other injury of unspecified body region, subsequent encounter PLAN: Plan Debridement done as documented above, procedure was well-tolerated. No new concerns and no significant change. For now, continue 10 minutes Dakins soak daily, Aquacel, adaptic and care max to both ulcers. He was advised that he could change it more than once if he notes increased drainage. Continue mupirocin ointment as well. Continue use of compression stockings, leg elevation and exercise. Increased protein intake, protein supplements, zinc andvitamin C also recommended. Continue multivitamins. His questions were answered and he was advised to call with any further questions or concerns. Follow-up in 2 weeks. This note was generated with RadioFrameation software. It may contain incorrectwords, spelling, and punctuation that were not noted in checking the note beforesigning. 11/22/23 0851 <Electronically signed by Alice Amaya MD> Cosigner Signature (if applicable): CC: ~ Signed [facility] Work Phone: 1(134) 962-885501-11-2024 Progress note Author madhavi Amaya [facility] November 08, 2023 8:38am Note Date/Time November 08, 2023 8 :39am [facility] [address] [place] [address] Progress Note - Wound Care 11/08/23 0837 MR#: [id number] Acct: [id number] Name: RUBEN ALLEN Jr. Rep #:[id number] : 1965 58 From: Alice dickerson MD PCP: Dr. George Frausto MD Status :REG RCR Location: History of Present Illness Date of Service: 11/08/23 Chief Complaint: ulcers to the left lower leg History of Wound: This is a 54-year-old male presents to wound healing center with a long-standing history of chronic venous insufficiency, chronic venous hypertension, lower extremity edema, lower extremity pain, and chronic left lower extremity ulcer. 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 He is currently wearing graduated compression stockings which are documented to be 20-30 mmHg compression and these are thigh high. He reports great compliance with use. Heis also had previous arterial work-up with no intervention recommended by letter, his vascular surgeon. He denies taking nutritional supplementation. [facility] and had a biopsy of the ulcer site. He also was previously treated by infectious disease for various contaminations and infections. He is not antibiotics at this time nor does he have any redness or odor coming from the wound. He denies fever, chill, nausea, vomiting, loss of appetite. 05/18/22: Mr. Allen presents with a new right lower extremity ulceration. He states that this has been present for months and he has been trying to manage itat home without any significant improvement. Opened up months ago, no known precipitating factor. Has been applying wound dressings without any significantimprovement. He reports increased drainage. Denies significant pain. No chills, fever or feeling of unwell. Progress of Wound: Some improvement noted. No new concerns reported at this time. Objective Data Objective Data Vital Signs: Vital Signs Temp Pulse Resp BP Pulse Ox 96.1 F L 91 20 H 154/71 H 99 11/08/23 08:07 11/08/23 08:07 11/08/23 08:07 11/08/23 08:07 10/29/23 00:46 Body Mass Index (BMI) 31.4 Charges/Coding Procedures Integumentary 111xxx-113xx: 73513 Lakeisha subq tissue 20 sq cm/< Physical Exam Const alert, oriented x3 and no apparent distress General Appearance: cooperative and comfortable HEENT normocephalic Head and Scalp: normal to inspection, normocephalic and atraumatic Eyes EOMs intact bilaterally Neck full ROM and supple General: normal visual inspection Resp normal respiratory effort Effort and Inspection: able to speak in complete sentences Extremity normal to inspection General Extremity: edema Skin Wounds: wounds noted Neuro oriented x3 and CN's II-XII intact bilaterally Psych mental status grossly normal Appearance: grossly normal Debridement Note Debridement Note Wound debrided: Left medial ankle Type of Debridement: Excisional debridement Anesthesia Used: 5% Lidocaine Gel Depth: Down to and including healthy tissue and in the subcutaneous layer Percentage of wound debrided: 100 Instrument Used: 5mm curette Tissue Removed: Slough and devitalized tissue Severity: Fat Layer Exposed Bleeding Controlled with: Pressure Patient tolerated procedure: Patient tolerated procedure well Post-Debridement Measurements and Additional Note: Post-Debridement Measurements/Treatment WC - Nurse 1 - General Ulcer Assessment Start: 11/08/23 08:07 Freq: Status: Active Protocol: [email or web address] Activity Type Activity Date Activity User E-sign Co-sign Detail Recorded Client Recorded Date Recorded By Document 11/08/23 08:07 DL Desktop 11/08/23 08:11 DL 11/08/23 08:07 - Today's Visit Information Type of service Follow-up Visit (Physician/SUPERVISOR CHANNEL PROCESS ) Arrival Mode Ambulatory Transfer Assistance None Patient Identification Verified (Name & Yes ) Patient Requires Transmission-Based No Precautions Height and Weight Body Mass Index (BMI) 31.4 BMI Classification Obese Vital Signs Temperature (97.8 F-99.1 F) 96.1 F L Temperature Source Temporal Pulse Rate (60-100) 91 Pulse Location Monitor Respiratory Rate (12-18) 20 H Respiratory rate source Observation Blood Pressure (90/60-120/80) 154/71 H Blood Pressure Mean (mm Hg) 98 Source Monitor History Since Last Visit- (Skip if this is Patient's initial visit) Have you changed medications since your No last visit? Any new allergies or adverse reactions No Had a fall/change in ADL's that may No increase risk of falls Signs or symptoms of abuse and/or No neglect since last visit Have you been in the hospital since your No last visit? Has dressing in place as prescribed Yes Has compression in place as prescribed Yes Has offloadiing in place as prescribed N/A Experienced any changes in pain level or No management Pain Scale: 0-10 Numeric Is Patient Pain Free? Yes - Nurse 1 - General Ulcer Measurement Start: 11/08/23 08:07 Freq: Status: Active Protocol: Activity Type Activity Date Activity User E-sign Co-sign Detail Recorded Client Recorded Date Recorded By Document 11/08/23 08:07 DL Desktop 11/08/23 08:11 11/08/23 08:07 Wound Center Nurse 1 #17- L DORSAL FOOT -Current Size (cm) - Length 1 -Current Size (cm) - Width 0.1 -Current Size (cm) - Depth 0.1 -Total Square Cm 0.1 -Exudate Amt None Present -Wound Margin Thickened -Granulation Amt Large (67-100%) -Granulation Quality Pale -Necrosis Amt Small (1-33%) -Necrotic Tissue Type Adherent Slough -Structure Exposed N/A -Texture (Ara-wound Skin Appearance) Scarring -Moisture (Ara-wound Skin Appearance) Dry/Scaly -Color (Ara-wound Skin Appearance) Hemosiderin Staining -Temperature (Ara-wound Skin No Abnormality Appearance) (Pt Warm) -Ulcer Cleansing Soap and Water -Foul Odor after Cleansing No -Anesthetic Used 5% Lidocaine Gel #10 Left Medial Ankle -Current Size (cm) - Length 3.3 -Current Size (cm) - Width 1.9 -Current Size (cm) - Depth 0.2 -Total Square Cm 6.27 -Exudate Amt Medium -Exudate Type Serosanguineous -Wound Margin Distinct, Outline Attached -Granulation Amt Medium (34-66%) -Granulation Quality [place],Red -Necrosis Amt Medium (34-66%) -Necrotic Tissue Type Adherent Slough -Structure Exposed N/A -Texture (Ara-wound Skin Appearance) Scarring -Moisture (Ara-wound Skin Appearance) Dry/Scaly -Color (Ara-wound Skin Appearance) Hemosiderin Staining -Temperature (Ara-wound Skin No Abnormality Appearance) (Pt Warm) -Tenderness on Palpation (Ara-wound No Skin Appearance) -Ulcer Cleansing Soap and Water -Foul Odor after Cleansing No -Anesthetic Used 5% Lidocaine Gel Left Calf (cm) 35.3 Left Ankle (cm) 23.3 WC - Nurse 2 - General Ulcer CM Notes Start: 11/08/23 08:07 Freq: Status: Active Protocol: Activity Type Activity Date Activity User E-sign Co-sign Detail Recorded Client Recorded Date Recorded By Document 11/08/23 08:23 GM Desktop 11/08/23 08:31 GM 11/08/23 08:23 Wound Center Nurse 2 #17- L DORSAL FOOT -Time 08:24 -Correct Patient Yes -Correct Side, Site, Position Yes -Correct Procedure Yes -Procedure Performed Yes -Type of Procedure Debridement -Clinical Debridement Subcutaneous -Tissue Removed Subcutaneous -Post Debridement (cm) - Length 1.0 -Post Debridement (cm) - Width 0.1 -Post Debridement (cm) - Depth 0.1 -Total Square (Post) (cm) 0.10 -Area of Debridement (cm) - Length 1.0 -Area of Debridement (cm) - Width 0.1 -Total Square (Area) (cm) 0.10 -Tunneling No -Undermining/Tunneling No -Circular Undermining No -Wound/Ulcer Outcome Not Healed -Ulcer Cleansing Rinsed/ Irrigated with Saline -Foul Odor after Cleansing No -Bioengineered Tissue No -Bleeding Controlled with Pressure -Treatment Response Procedure Tolerated Well -Debridement - Subq, 1st 20sq cm No #10 Left Medial Ankle -Time 08:24 -Correct Patient Yes -Correct Side, Site, Position Yes -Correct Procedure Yes -Procedure Performed Yes -Type of Procedure Debridement -Clinical Debridement Subcutaneous -Tissue Removed Subcutaneous -Post Debridement (cm) - Length 3.5 -Post Debridement (cm) - Width 1.9 -Post Debridement (cm) - Depth 0.2 -Total Square (Post) (cm) 6.65 -Area of Debridement (cm) - Length 3.5 -Area of Debridement (cm) - Width 1.9 -Total Square (Area) (cm) 6.65 -Tunneling No -Undermining/Tunneling No -Circular Undermining No -Wound/Ulcer Outcome Not Healed -Ulcer Cleansing Rinsed/ Irrigated with Saline -Foul Odor after Cleansing No -Bioengineered Tissue No -Bleeding Controlled with Pressure -Treatment Response Procedure Tolerated Well -Debridement - Subq, 1st 20sq cm Yes Pain Scale: 0-10 Numeric Is Patient Pain Free? Yes Additional Wound Wound debrided: Left dorsal foot Type of Debridement: Excisional debridement Anesthesia Used: 5% Lidocaine Gel Depth: Down to and including healthy tissue and in the subcutaneous layer Percentage of wound debrided: 100 Instrument Used: 3mm curette Tissue Removed: Slough and devitalized tissue Severity: Fat Layer Exposed Amount of bleeding with debridement: Mild Bleeding Controlled with: Pressure Patient tolerated procedure: Patient tolerated procedure well Assessment/Plan Assessment/Plan (1) Ulcer of left lower extremity with fat layer exposed: CODE(S): L97.922 - Non-pressure chronic ulcer of unspecified part of left lower leg with fat layer exposed (2) PVD (peripheral vascular disease): CODE(S): I73.9 - Peripheral vascular disease, unspecified (3) Chronic venous insufficiency: CODE(S): I87.2 - Venous insufficiency (chronic) (peripheral) (4) Delayed wound healing: CODE(S): T14.8XXD - Other injury of unspecified body region, subsequent encounter PLAN: Plan Debridement done as documented above, procedure was well-tolerated. No new concerns. Some improvement noted this week. For now, continue 10 minutes Dakinssoak daily, Aquacel, adaptic and care max to both ulcers. He was advised thathe could change it more than once if he notes increased drainage. Continue mupirocin ointment as well. Continue use of compression stockings, leg elevation and exercise. Increased protein intake, protein supplements, zinc andvitamin C also recommended. Continue multivitamins. His questions were answered and he was advised to call with any further questions or concerns. Follow-up in 2 weeks. This note was generated with IntelliDOT dictation software. It may contain incorrectwords, spelling, and punctuation that were not noted in checking the note beforesigning. 11/08/23 0838 <Electronically signed by Alice Amaya MD> Cosigner Signature (if applicable): CC: ~ Signed [facility] Work Phone: 1(258) 995-583212-28-2023 Progress note Author Alice Amaya [facility] October 25, 2023 9:28am Note Date/Time October 25, 2023 9:28am [facility] [address] [place] [id number] Progress Note - Wound Care 10/25/23 0925 MR#: [id number] Acct: [id number] Name: RUBEN ALLEN . Rep #:[id number] : 1965 58 From: Alice dickerson MD PCP: Dr. George Frausto MD Status :REG R Location: History of Present Illness Date of Service: 10/25/23 Chief Complaint: ulcers to the left lower leg History of Wound: This is a 54-year-old male presents to wound healing center with a long-standing history of chronic venous insufficiency, chronic venous hypertension, lower extremity edema, lower extremity pain, and chronic left lower extremity ulcer. 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 He is currently wearing graduated compression stockings which are documented to be 20-30 mmHg compression and these are thigh high. He reports great compliance with use. Heis also had previous arterial work-up with no intervention recommended by letter, his vascular surgeon. He denies taking nutritional supplementation. [facility] and had a biopsy of the ulcer site. He also was previously treated by infectious disease for various contaminations and infections. He is not antibiotics at this time nor does he have any redness or odor coming from the wound. He denies fever, chill, nausea, vomiting, loss of appetite. 05/18/22: Mr. Allen presents with a new right lower extremity ulceration. He states that this has been present for months and he has been trying to manage itat home without any significant improvement. Opened up months ago, no known precipitating factor. Has been applying wound dressings without any significantimprovement. He reports increased drainage. Denies significant pain. No chills, fever or feeling of unwell. Progress of Wound: No new concerns or significant changes at this time. Objective Data Objective Data Vital Signs: Vital Signs Temp Pulse Resp BP Pulse Ox 96.7 F L 96 18 176/90 H 99 10/25/23 08:00 10/25/23 08:00 10/25/23 08:00 10/25/23 08:00 09/28/23 00:48 Body Mass Index (BMI) 31.4 Charges/Coding Procedures Integumentary 111xxx-113xx: 52301 Lakeisha subq tissue 20 sq cm/< Physical Exam Const alert, oriented x3 and no apparent distress General Appearance: cooperative and comfortable HEENT normocephalic Head and Scalp: normal to inspection, normocephalic and atraumatic Eyes EOMs intact bilaterally Neck full ROM and supple General: normal visual inspection Resp normal respiratory effort Effort and Inspection: able to speak in complete sentences Extremity normal to inspection General Extremity: edema Skin Wounds: wounds noted Neuro oriented x3 and CN's II-XII intact bilaterally Psych mental status grossly normal Appearance: grossly normal Debridement Note Debridement Note Wound debrided: Left medial ankle Type of Debridement: Excisional debridement Anesthesia Used: 5% Lidocaine Gel Depth: Down to and including healthy tissue and in the subcutaneous layer Percentage of wound debrided: 100 Instrument Used: 5mm curette Tissue Removed: Slough and devitalized tissue Severity: Fat Layer Exposed Bleeding Controlled with: Pressure Patient tolerated procedure: Patient tolerated procedure well Post-Debridement Measurements and Additional Note: Post-Debridement Measurements/Treatment KIMBERLY - Nurse 1 - General Ulcer Assessment Start: 10/11/23 08:06 Freq: Status: Active Protocol: SHANTA Activity Type Activity Date Activity User E-sign Co-sign Detail Recorded Client Recorded Date Recorded By Document 10/11/23 08:06 Desktop 10/11/23 08:09 DL Document 10/25/23 08:00 DL Desktop 10/25/23 08:06 DL 10/11/23 10/25/23 08:06 08:00 - Today's Visit Information Type of service Follow-up Visit Follow-up Visit (Physician/SUPERVISOR CHANNEL PROCESS (Physician/SUPERVISOR CHANNEL PROCESS ) ) Arrival Mode Ambulatory Ambulatory Transfer Assistance None None Patient Identification Verified (Name & Yes Yes ) Patient Requires Transmission-Based No No Precautions Height and Weight Body Mass Index (BMI) 31.4 31.4 BMI Classification Obese Obese Vital Signs Temperature (97.8 F-99.1 F) 96.4 F L 96.7 F L Temperature Source Temporal Temporal Pulse Rate (60-100) 88 96 Pulse Location Monitor Monitor Respiratory Rate (12-18) 20 H 18 Respiratory rate source Observation Observation Blood Pressure (90/60-120/80) 153/77 H 176/90 H Blood Pressure Mean (mm Hg) 102 118 Source Monitor Monitor History Since Last Visit- (Skip if this is Patient's initial visit) Have you changed medications since your No No last visit? Any new allergies or adverse reactions No No Had a fall/change in ADL's that may No No increase risk of falls Signs or symptoms of abuse and/or No No neglect since last visit Have you been in the hospital since your No No last visit? Has dressing in place as prescribed Yes Yes Has compression in place as prescribed Yes Yes Has offloadiing in place as prescribed N/A N/A Experienced any changes in pain level or No No management Pain Scale: 0-10 Numeric Is Patient Pain Free? Yes Yes - Nurse 1 - General Ulcer Measurement Start: 10/11/23 08:06 Freq: Status: Active Protocol: Activity Type Activity Date Activity User E-sign Co-sign Detail Recorded Client Recorded Date Recorded By Document 10/11/23 08:06 Desktop 10/11/23 08:09 DL Document 10/25/23 08:00 Desktop 10/25/23 08:06 DL 10/11/23 10/25/23 08:06 08:00 Wound Center Nurse 1 #17- L DORSAL FOOT -Current Size (cm) - Length 0.1 0.7 -Current Size (cm) - Width 0.1 0.2 -Current Size (cm) - Depth 0.1 0.2 -Total Square Cm 0.01 0.14 -Photo Taken Yes Yes -Exudate Amt None Present Small -Exudate Type Serosanguineous -Wound Margin Flat & Intact Distinct, Outline Attached -Granulation Amt Medium (34-66%) Small (1-33%) -Granulation Quality Pale [place] -Necrosis Amt Medium (34-66%) None Present (0 %) -Necrotic Tissue Type Adherent Slough -Structure Exposed N/A N/A -Texture (Ara-wound Skin Appearance) Scarring Scarring -Moisture (Ara-wound Skin Appearance) Dry/Scaly No Abnormality -Color (Ara-wound Skin Appearance) Hemosiderin Hemosiderin Staining Staining -Temperature (Ara-wound Skin No Abnormality No Abnormality Appearance) (Pt Warm) (Pt Warm) -Tenderness on Palpation (Ara-wound No No Skin Appearance) -Ulcer Cleansing Soap and Water Soap and Water -Foul Odor after Cleansing No No -Anesthetic Used 5% Lidocaine 5% Lidocaine Gel Gel #10 Left Medial Ankle -Current Size (cm) - Length 3.3 3.6 -Current Size (cm) - Width 1.5 2 -Current Size (cm) - Depth 0.2 0.3 -Total Square Cm 4.95 7.2 -Photo Taken Yes Yes -Exudate Amt Medium Medium -Exudate Type Serosanguineous Serosanguineous -Wound Margin Thickened Thickened -Granulation Amt Medium (34-66%) Medium (34-66%) -Granulation Quality [place] Pale,[place] -Necrosis Amt Medium (34-66%) Medium (34-66%) -Necrotic Tissue Type Adherent Slough Adherent Slough -Structure Exposed N/A N/A -Texture (Ara-wound Skin Appearance) Scarring Scarring -Moisture (Ara-wound Skin Appearance) Dry/Scaly Dry/Scaly -Color (Ara-wound Skin Appearance) Hemosiderin Hemosiderin Staining Staining -Temperature (Ara-wound Skin No Abnormality No Abnormality Appearance) (Pt Warm) (Pt Warm) -Tenderness on Palpation (Ara-wound No No Skin Appearance) -Ulcer Cleansing Soap and Water Soap and Water -Foul Odor after Cleansing No -Anesthetic Used 5% Lidocaine 5% Lidocaine Gel Gel,Cetacaine Left Calf (cm) 36 34 Left Ankle (cm) 22.7 21.8 WC - Nurse 2 - General Ulcer CM Notes Start: 10/11/23 08:06 Freq: Status: Active Protocol: Activity Type Activity Date Activity User E-sign Co-sign Detail Recorded Client Recorded Date Recorded By Document 10/11/23 08:21 Laptop 10/11/23 08:26 Document 10/25/23 08:17 Desktop 10/25/23 08:23 10/11/23 10/25/23 08:21 08:17 Wound Center Nurse 2 #17- L DORSAL FOOT -Time 08: 08:17 -Correct Patient Yes Yes -Correct Side, Site, Position Yes Yes -Correct Procedure Yes Yes -Procedure Performed Yes Yes -Type of Procedure Debridement Debridement -Clinical Debridement Subcutaneous Subcutaneous -Tissue Removed Subcutaneous Subcutaneous -Post Debridement (cm) - Length 0.2 1.5 -Post Debridement (cm) - Width 1.2 0.3 -Post Debridement (cm) - Depth 0.1 0.1 -Total Square (Post) (cm) 0.24 0.45 -Area of Debridement (cm) - Length 0.2 1.5 -Area of Debridement (cm) - Width 1.2 0.3 -Total Square (Area) (cm) 0.24 0.45 -Tunneling No No -Undermining/Tunneling No No -Circular Undermining No No -Wound/Ulcer Outcome Not Healed Not Healed -Ulcer Cleansing Rinsed/ Rinsed/ Irrigated with Irrigated with Saline Saline -Foul Odor after Cleansing No No -Bioengineered Tissue No No -Bleeding Controlled with Pressure Pressure -Treatment Response Procedure Procedure Tolerated Well Tolerated Well -Offloading No -Debridement - Subq, 1st 20sq cm No Yes #10 Left Medial Ankle -Time 08: 08:18 -Correct Patient Yes Yes -Correct Side, Site, Position Yes Yes -Correct Procedure Yes Yes -Procedure Performed Yes Yes -Type of Procedure Debridement Debridement -Clinical Debridement Subcutaneous Subcutaneous -Tissue Removed Subcutaneous Subcutaneous -Post Debridement (cm) - Length 3.9 3.5 -Post Debridement (cm) - Width 2 2.0 -Post Debridement (cm) - Depth 0.2 0.2 -Total Square (Post) (cm) 7.8 7.00 -Area of Debridement (cm) - Length 3.9 3.5 -Area of Debridement (cm) - Width 2 2.0 -Total Square (Area) (cm) 7.8 7.00 -Tunneling No No -Undermining/Tunneling No No -Circular Undermining No No -Wound/Ulcer Outcome Not Healed Not Healed -Ulcer Cleansing Rinsed/ Rinsed/ Irrigated with Irrigated with Saline Saline -Foul Odor after Cleansing No No -Bioengineered Tissue No No -Bleeding Controlled with Pressure -Treatment Response Procedure Tolerated Well -Offloading No -Debridement - Subq, 1st 20sq cm Yes No Pain Scale: 0-10 Numeric Is Patient Pain Free? Yes Yes - Nurse 3 - General Ulcer D/C NN Start: 10/11/23 08:06 Freq: Status: Active Protocol: Activity Type Activity Date Activity User E-sign Co-sign Detail Recorded Client Recorded Date Recorded By Document 10/25/23 08:27 [facility] Desktop 10/25/23 08:28 [facility] 10/25/23 08:27 Wound Care Center Nurse 3 #17- L DORSAL FOOT -Other Dressing abd pad; pt going home to shower and will apply drsg #10 Left Medial Ankle -Other Dressing abd; pt going home to shower and will apply drsg BLE -Other PT REAPPLIED OWN COMPRESSION STOCKING Treatment Response Procedure Tolerated Well Pain Scale: 0-10 Numeric Is Patient Pain Free? Yes - Visit Discharge Discharge Condition Stable Ambulatory Status Ambulatory Transportation Private Auto Additional Wound Wound debrided: Left dorsal foot Type of Debridement: Excisional debridement Anesthesia Used: 5% Lidocaine Gel Depth: Down to and including healthy tissue and in the subcutaneous layer Percentage of wound debrided: 100 Instrument Used: 3mm curette Tissue Removed: Slough and devitalized tissue Severity: Fat Layer Exposed Amount of bleeding with debridement: Mild Bleeding Controlled with: Pressure Patient tolerated procedure: Patient tolerated procedure well Assessment/Plan Assessment/Plan (1) Ulcer of left lower extremity with fat layer exposed: CODE(S): L97.922 - Non-pressure chronic ulcer of unspecified part of left lower leg with fat layer exposed (2) PVD (peripheral vascular disease): CODE(S): I73.9 - Peripheral vascular disease, unspecified (3) Chronic venous insufficiency: CODE(S): I87.2 - Venous insufficiency (chronic) (peripheral) (4) Delayed wound healing: CODE(S): T14.8XXD - Other injury of unspecified body region, subsequent encounter PLAN: Plan Debridement done as documented above, procedure was well-tolerated. No new concerns or significant changes. Dorsal also has remained similar for a few weeks, consider switching to Promogran at next visit if still no significant change. For now, continue 10 minutes Dakins soak daily, Aquacel, adaptic and care max to both ulcers. He was advised that he could change it more than once if he notes increased drainage. Continue mupirocin ointment as well. Continue use of compression stockings, leg elevation and exercise. Increased protein intake, protein supplements, zinc and vitamin C also recommended. Continue multivitamins. His questions were answered and he was advised to call with anyfurther questions or concerns. Follow-up in 2 weeks. This note was generated with RadioFrameation software. It may contain incorrectwords, spelling, and punctuation that were not noted in checking the note beforesigning. 10/25/23 0980 <Electronically signed by Alice Amaya MD> Cosigner Signature (if applicable): CC: ~ Signed [facility] Work Phone: 1(761) 350-970312-15-2023 Miscellaneous Notes* Telephone Encounter - Kelsy Chavez LPN - 10/12/2023 11:38 AM EST Spoke with pt and information listed below given. Pt verbalizes understanding. Kelsy Chavez LPN * Telephone Encounter - Jo Reyna Ma - 10/12/2023 10:52 AM EST Called and left message on patients voicemail to return call to the office and ask to speak with a triage nurse. Jo Reyna Ma * Telephone Encounter - Bhavana Rsoales APRN.ALEXEI - 10/12/2023 7:15 AM EST Please call patient and let him know his cholesterol is in good range - continue atorvastatin, low saturated diet and at least 150 minutes of exercise per week. A1c is in prediabetic range still but improved from last check. Continue low carb diet and exercise as already mentioned. The rest of his blood work is in acceptable ranges. Bhavana Rosales APRN.CNP documented in this encounterOhiohealth12-14-2023 Progress note Author Alice Amaya [facility] October 11, 2023 8:32am Note Date/Time October 11, 2023 8:32am [facility] [address] [place] [address] Progress Note - Wound Care 10/11/23 0830 MR#: [id number] Acct: [id number] Name: RUBEN ALLEN Jr. Rep #:[id number] : 1965 58 From: Alice dickerson MD PCP: Dr. George Frausto MD Status :REG RCR Location: History of Present Illness Date of Service: 10/11/23 Chief Complaint: ulcers to the left lower leg History of Wound: This is a 54-year-old male presents to wound healing center with a long-standing history of chronic venous insufficiency, chronic venous hypertension, lower extremity edema, lower extremity pain, and chronic left lower extremity ulcer. 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 He is currently wearing graduated compression stockings which are documented to be 20-30 mmHg compression and these are thigh high. He reports great compliance with use. Heis also had previous arterial work-up with no intervention recommended by letter, his vascular surgeon. He denies taking nutritional supplementation. [facility] and had a biopsy of the ulcer site. He also was previously treated by infectious disease for various contaminations and infections. He is not antibiotics at this time nor does he have any redness or odor coming from the wound. He denies fever, chill, nausea, vomiting, loss of appetite. 05/18/22: Mr. Allen presents with a new right lower extremity ulceration. He states that this has been present for months and he has been trying to manage itat home without any significant improvement. Opened up months ago, no known precipitating factor. Has been applying wound dressings without any significantimprovement. He reports increased drainage. Denies significant pain. No chills, fever or feeling of unwell. Progress of Wound: Overall stable/improving. No new concerns reported at this time. Objective Data Objective Data Vital Signs: Vital Signs Temp Pulse Resp BP Pulse Ox 96.4 F L 88 20 H 153/77 H 99 10/11/23 08:06 10/11/23 08:06 10/11/23 08:06 10/11/23 08:06 09/28/23 00:48 Body Mass Index (BMI) 31.4 Charges/Coding Procedures Integumentary 111xxx-113xx: [id number] Lakeisha subq tissue 20 sq cm/< Physical Exam Const alert, oriented x3 and no apparent distress General Appearance: cooperative and comfortable HEENT normocephalic Head and Scalp: normal to inspection, normocephalic and atraumatic Eyes EOMs intact bilaterally Neck full ROM and supple General: normal visual inspection Resp normal respiratory effort Effort and Inspection: able to speak in complete sentences Extremity normal to inspection General Extremity: edema Skin Wounds: wounds noted Neuro oriented x3 and CN's II-XII intact bilaterally Psych mental status grossly normal Appearance: grossly normal Debridement Note Debridement Note Wound debrided: Left medial ankle Type of Debridement: Excisional debridement Anesthesia Used: 5% Lidocaine Gel Depth: Down to and including healthy tissue and in the subcutaneous layer Percentage of wound debrided: 100 Instrument Used: 5mm curette Tissue Removed: Slough and devitalized tissue Severity: Fat Layer Exposed Bleeding Controlled with: Pressure Patient tolerated procedure: Patient tolerated procedure well Post-Debridement Measurements and Additional Note: Post-Debridement Measurements/Treatment - Nurse 1 - General Ulcer Assessment Start: 10/11/23 08:06 Freq: Status: Active Protocol: SHANTA Activity Type Activity Date Activity User E-sign Co-sign Detail Recorded Client Recorded Date Recorded By Document 10/11/23 08:06 DL Desktop 10/11/23 08:09 DL 10/11/23 08:06 - Today's Visit Information Type of service Follow-up Visit (Physician/SUPERVISOR CHANNEL PROCESS ) Arrival Mode Ambulatory Transfer Assistance None Patient Identification Verified (Name & Yes ) Patient Requires Transmission-Based No Precautions Height and Weight Body Mass Index (BMI) 31.4 BMI Classification Obese Vital Signs Temperature (97.8 F-99.1 F) 96.4 F L Temperature Source Temporal Pulse Rate (60-100) 88 Pulse Location Monitor Respiratory Rate (12-18) 20 H Respiratory rate source Observation Blood Pressure (90/60-120/80) 153/77 H Blood Pressure Mean (mm Hg) 102 Source Monitor History Since Last Visit- (Skip if this is Patient's initial visit) Have you changed medications since your No last visit? Any new allergies or adverse reactions No Had a fall/change in ADL's that may No increase risk of falls Signs or symptoms of abuse and/or No neglect since last visit Have you been in the hospital since your No last visit? Has dressing in place as prescribed Yes Has compression in place as prescribed Yes Has offloadiing in place as prescribed N/A Experienced any changes in pain level or No management Pain Scale: 0-10 Numeric Is Patient Pain Free? Yes WC - Nurse 1 - General Ulcer Measurement Start: 10/11/23 08:06 Freq: Status: Active Protocol: Activity Type Activity Date Activity User E-sign Co-sign Detail Recorded Client Recorded Date Recorded By Document 10/11/23 08:06 DL Desktop 10/11/23 08:09 DL 10/11/23 08:06 Wound Center Nurse 1 #17- L DORSAL FOOT -Current Size (cm) - Length 0.1 -Current Size (cm) - Width 0.1 -Current Size (cm) - Depth 0.1 -Total Square Cm 0.01 -Photo Taken Yes -Exudate Amt None Present -Wound Margin Flat & Intact -Granulation Amt Medium (34-66%) -Granulation Quality Pale -Necrosis Amt Medium (34-66%) -Necrotic Tissue Type Adherent Slough -Structure Exposed N/A -Texture (Ara-wound Skin Appearance) Scarring -Moisture (Ara-wound Skin Appearance) Dry/Scaly -Color (Ara-wound Skin Appearance) Hemosiderin Staining -Temperature (Ara-wound Skin No Abnormality Appearance) (Pt Warm) -Tenderness on Palpation (Ara-wound No Skin Appearance) -Ulcer Cleansing Soap and Water -Foul Odor after Cleansing No -Anesthetic Used 5% Lidocaine Gel #10 Left Medial Ankle -Current Size (cm) - Length 3.3 -Current Size (cm) - Width 1.5 -Current Size (cm) - Depth 0.2 -Total Square Cm 4.95 -Photo Taken Yes -Exudate Amt Medium -Exudate Type Serosanguineous -Wound Margin Thickened -Granulation Amt Medium (34-66%) -Granulation Quality [place] -Necrosis Amt Medium (34-66%) -Necrotic Tissue Type Adherent Slough -Structure Exposed N/A -Texture (Ara-wound Skin Appearance) Scarring -Moisture (Ara-wound Skin Appearance) Dry/Scaly -Color (Ara-wound Skin Appearance) Hemosiderin Staining -Temperature (Ara-wound Skin No Abnormality Appearance) (Pt Warm) -Tenderness on Palpation (Ara-wound No Skin Appearance) -Ulcer Cleansing Soap and Water -Foul Odor after Cleansing No -Anesthetic Used 5% Lidocaine Gel Left Calf (cm) 36 Left Ankle (cm) 22.7 WC - Nurse 2 - General Ulcer CM Notes Start: 10/11/23 08:06 Freq: Status: Active Protocol: Activity Type Activity Date Activity User E-sign Co-sign Detail Recorded Client Recorded Date Recorded By Document 10/11/23 08:21 Laptop 10/11/23 08:26 10/11/23 08:21 Wound Center Nurse 2 #17- L DORSAL FOOT -Time 08:22 -Correct Patient Yes -Correct Side, Site, Position Yes -Correct Procedure Yes -Procedure Performed Yes -Type of Procedure Debridement -Clinical Debridement Subcutaneous -Tissue Removed Subcutaneous -Post Debridement (cm) - Length 0.2 -Post Debridement (cm) - Width 1.2 -Post Debridement (cm) - Depth 0.1 -Total Square (Post) (cm) 0.24 -Area of Debridement (cm) - Length 0.2 -Area of Debridement (cm) - Width 1.2 -Total Square (Area) (cm) 0.24 -Tunneling No -Undermining/Tunneling No -Circular Undermining No -Wound/Ulcer Outcome Not Healed -Ulcer Cleansing Rinsed/ Irrigated with Saline -Foul Odor after Cleansing No -Bioengineered Tissue No -Bleeding Controlled with Pressure -Treatment Response Procedure Tolerated Well -Offloading No -Debridement - Subq, 1st 20sq cm No #10 Left Medial Ankle -Time 08:22 -Correct Patient Yes -Correct Side, Site, Position Yes -Correct Procedure Yes -Procedure Performed Yes -Type of Procedure Debridement -Clinical Debridement Subcutaneous -Tissue Removed Subcutaneous -Post Debridement (cm) - Length 3.9 -Post Debridement (cm) - Width 2 -Post Debridement (cm) - Depth 0.2 -Total Square (Post) (cm) 7.8 -Area of Debridement (cm) - Length 3.9 -Area of Debridement (cm) - Width 2 -Total Square (Area) (cm) 7.8 -Tunneling No -Undermining/Tunneling No -Circular Undermining No -Wound/Ulcer Outcome Not Healed -Ulcer Cleansing Rinsed/ Irrigated with Saline -Foul Odor after Cleansing No -Bioengineered Tissue No -Bleeding Controlled with Pressure -Treatment Response Procedure Tolerated Well -Offloading No -Debridement - Subq, 1st 20sq cm Yes Pain Scale: 0-10 Numeric Is Patient Pain Free? Yes Additional Wound Wound debrided: Left dorsal foot Type of Debridement: Excisional debridement Anesthesia Used: 5% Lidocaine Gel Depth: Down to and including healthy tissue and in the subcutaneous layer Percentage of wound debrided: 100 Instrument Used: 3mm curette Tissue Removed: Slough and devitalized tissue Severity: Fat Layer Exposed Amount of bleeding with debridement: Mild Bleeding Controlled with: Pressure Patient tolerated procedure: Patient tolerated procedure well Assessment/Plan Assessment/Plan (1) Ulcer of left lower extremity with fat layer exposed: CODE(S): L97.922 - Non-pressure chronic ulcer of unspecified part of left lower leg with fat layer exposed (2) PVD (peripheral vascular disease): CODE(S): I73.9 - Peripheral vascular disease, unspecified (3) Chronic venous insufficiency: CODE(S): I87.2 - Venous insufficiency (chronic) (peripheral) (4) Delayed wound healing: CODE(S): T14.8XXD - Other injury of unspecified body region, subsequent encounter PLAN: Plan Debridement done as documented above, procedure was well-tolerated. No new concerns. Some improvement noted. Continue 10 minutes Dakins soak daily. Continue Aquacel, adaptic and care max to both ulcers. He was advised that he could change it more than once if he notes increased drainage. Continue mupirocin ointment as well. Continue use of compression stockings, leg elevation and exercise. Increased protein intake, protein supplements, zinc andvitamin C also recommended. Continue multivitamins. His questions were answered and he was advised to call with any further questions or concerns. Follow-up in 2 weeks. This note was generated with IntelliDOT dictation software. It may contain incorrectwords, spelling, and punctuation that were not noted in checking the note beforesigning. 10/11/23 0832 <Electronically signed by Alice Amaya MD> Cosigner Signature (if applicable): CC: ~ Signed [facility] Work Phone: [phone]) 509-931112-12-2023 History of Present illness Narrative* Tracey Coats - 10/09/2023 11:24 AM EST Patient cancelled colonoscopy 10-16 and rescheduled to 11-27-2023 Tracey Coats * PodBhavana campa APRN.SUPERVISOR CHANNEL PROCESS - 10/09/2023 7:09 AM EST 10/09/2023 Patient presents with: Physical SUBJECTIVE: This is a 58 year old that is here today for Above Complaints. Since last office visit has been in good health without ER visits or hospitalizations. HTN: Patient is compliant with meds Yes Monitors bp at home: No. Denies side effects: Yes. Chest pain: No. Dyspnea: No. Edema: No. Palpitations: No. Syncope: No. Headache: No. Dizziness: No. Prediabetes: reports he follows low carbohydrate diet. No exercise regime PVD: Goes to wound care every two weeks. Still with two open wounds to left leg. Follows with doctor at wound clinic. He reports wounds healing slowly PAST MEDICAL HISTORY Diagnosis Date Dental caries History of tobacco use Hypertension Obesity Periodontal disease PVD (peripheral vascular disease) ([facility] Vascular Wound of left leg wound center [facility], not healing since 2019 ALLERGIES Ciprofloxacin MEDICATIONS Current Outpatient Medications Medication Sig atorvastatin (LIPITOR) 20 mg tablet Take 1 tablet by mouth daily at bedtime. For cholesterol. hydroCHLOROthiazide 25 mg tablet Take 1 tablet by mouth once daily. aspirin, enteric coated (ASPIRIN, ENTERIC COATED) 81 mg EC tablet Take 81 mg by mouth once daily. Ascorbic Acid (VITAMIN C) 100 mg tablet Take 100 mg by mouth once daily. calcium phosphate dibas/vit D3 (VITAMIN D, WITH CALCIUM, ORAL) Take by mouth. Vitamin E, dl, acetate, (VITAMIN E) 100 unit capsule Take 100 Units by mouth once daily. Zinc 50 mg tab Take 1 tablet by mouth once daily. No current facility-administered medications for this visit. Medications and allergies reviewed by this provider. SOCIAL HISTORY Social History Tobacco Use Smoking status: Former Packs/day: 1.00 Years: 38.00 Additional pack years: 0.00 Total pack years: 38.00 Types: Cigarettes Quit date: 08/01/2019 Years since quittin.1 Smokeless tobacco: Former Types: Chew Quit date: 07/02/2000 Vaping Use Vaping Use: Never used Substance Use Topics Alcohol use: Yes Alcohol/week: 2.0 standard drinks of alcohol Types: 2 Cans of Beer (12oz) per week Drug use: Never REVIEW OF SYSTEMS GENERAL: No weight loss, malaise or fevers HEENT: Negative for frequent or significant headaches, No changes in hearing or vision, no nose bleeds or other nasal problems NECK: Negative for lumps, goiter, pain and significant neck swelling RESPIRATORY: Negative for cough, hemoptysis, wheezing, COPD, dyspnea or shortness of breath CARDIOVASCULAR: Negative for chest pain, leg swelling, hypertension, CHF or palpitations GI: No nausea, vomiting, or diarrhea : No history of dysuria, frequency or incontinence MUSCULOSKELETAL: Negative for joint pain or swelling, back pain or muscle pain SKIN: patient reports area of fungal rash to left upper arm PSYCH: Negative for sleep disturbance, mood disorder and recent psychosocial stressors HEMATOLOGY/LYMPHOLOGY: Negative for prolonged bleeding, bruising easily or swollen nodes ENDOCRINE: Negative for cold or heat intolerance, polyuria, polydipsia and goiter NEURO: No history of headaches, syncope, paralysis, seizures or tremors All other reviewed and negative other than HPI. OBJECTIVE: BP 138/86 Pulse 92 Resp 18 Ht 172.7 cm (5' 7.99) Wt 114 kg (251 lb 6.4 oz) SpO2 97% BMI 38.23 kg/m . Vital signs reviewed by this provider. APPEARANCE Well appearing, alert, in no acute distress, well-hydrated, well nourished. EYES PERRLA, conjunctiva and sclera normal. EARS External ears normal, canals clear NECK Supple, no adenopathy; thyroid symmetric, normal size, no bruits HEART RRR with normal S1 and S2, no murmurs, no gallops, no JVD appreciated LUNG clear to auscultation. No wheezes, rhonchi or rales EXTREMITIES compression hose intact SKIN small area of tinea versicolor by left axilla area otherwise Skin color, texture, turgor normal, no suspicious lesions Component Latest Ref Rng & Units 05/04/2023 Protein, Total 6.3 - 8.0 g/dL 7.5 Albumin 3.9 - 4.9 g/dL 4.3 Calcium 8.5 - 10.2 mg/dL 9.6 Bilirubin, Total 0.2 - 1.3 mg/dL 0.3 Alkaline Phosphatase 38 - 113 U/L 109 AST 14 - 40 U/L 39 ALT 10 - 54 U/L 46 Glucose 74 - 99 mg/dL 146 (H) BUN 9 - 24 mg/dL 28 (H) Creatinine 0.73 - 1.22 mg/dL 1.25 (H) Sodium 136 - 144 mmol/L 141 Potassium 3.7 - 5.1 mmol/L 3.5 (L) Chloride 97 - 105 mmol/L 103 CO2 22 - 30 mmol/L 26 Anion Gap 9 - 18 mmol/L 12 eGFR >=60 mL/min/1.73m 66 Hemoglobin A1C 4.3 - 5.6 % 6.0 (H) Estimated Average Glucose mg/dL 126 BP Controlled (<130/80) Never done Colorectal Cancer Screening Never done Prostate Cancer Screening Discussion Never done DTaP,Tdap,Td Vaccine(1 - Tdap) due on 10/28/2023 Lung Cancer Screening due on 10/28/2023 Shingrix Vaccine(1 of 2) due on 10/28/2023 Influenza Vaccine(1) due on 04/27/2024 RSV Vaccine(1 - 1-dose 60+ series) due on 10/09/2024 Covid-19 Vaccine(3 - season) due on 10/09/2024 Annual PCP Team Chronic Disease Visit due on 10/09/2024 Diabetes Screening due on 05/04/2026 Lipid Screening due on 10/28/2027 Depression Assessment Completed Hepatitis C Screening Completed HIV Screening Completed ASSESSMENT/PLAN: 1. Annual physical exam - ICD9: V70.0, ICD10: Z00.00 (primary diagnosis) - Counseled on healthy diet and regular exercise - Discussed need for and benefit of weight loss. BMI 38.23 kg/(m^2) - Colorectal cancer screening recommended - agrees to Colonoscopy - Lung cancer screening recommended- declines - Depression screening tool completed and reviewed with patient. Based on score and interview, patient is not at risk for depression and recommended no further intervention at this time. - Follow up for annual exam in one year - CBC + DIFF 2. Essential hypertension - ICD9: 401.9, ICD10: I10 - Controlled - Continue current medications - Recommend home blood pressure monitoring, to bring results to next visit - Encouraged sodium restriction, DASH or Mediterranean diet - Recommend regular aerobic exercise - Discussed need for and benefit of weight loss. BMI 38.23 kg/(m^2) - Follow up in 6 months for hypertension visit - COMP METABOLIC PANEL 3. Prediabetes - ICD9: 790.29, ICD10: R73.03 - recommend continue lower carbohydrate diet and aim for at least 150 minutes of exercise per week - HGB A1C 4. Hyperlipidemia, mixed - ICD9: 272.2, ICD10: E78.2 - Control undetermined, due for labs - Continue current medications - Counseled on healthy diet and regular exercise - Discussed need for and benefit of weight loss. BMI 38.23 kg/(m^2) - Follow up in 6 months, sooner should any other issues arise. - LIPID PANEL BASIC 5. Obesity, Class II, BMI 35-39.9 - ICD9: 278.00, ICD10: E66.9 - Lengthy discussion in office today regarding diet and exercise. Discussed use of small plate to eat meals from, drink 1 glass of water 10-15 minutes prior to eating meal, drink 8 glasses of water daily, eat fresh fruit and vegetable during meal first then lean protein such as grilled/baked chicken breast or fish, limit carbohydrate intake (less pasta, breads, rice and snack foods) as well as limiting sugars (desserts etc). Important to count / track your calories and exercise as well. 6. Special screening for malignant neoplasms, colon - ICD9: V76.51, ICD10: Z12.11 - COLONOSCOPY SCREENING 7. PVD (peripheral vascular disease) (HCC) - ICD9: 443.9, ICD10: I73.9 - continue to follow with wound care at [facility] 8. Tinea versicolor - ICD9: 111.0, ICD10: B36.0 - would recommend scrubbing area with head and shoulder daily- leave on for five minutes before rinsing. Do this for two weeks, follow-up if persists Bhavana Rosales APRN.CNP Prescription instructions reviewed with patient as applicable. Patient advised if symptoms do not improve or if symptoms worsen sooner, to contact their primary care physician. Potential red flag symptoms discussed with the patient. Reviewed appropriate action plan to take if red flag symptoms occur. Patient agreeable to treatment plan. [facility] OPEN ACCESS QUESTIONNAIRE 1. Are you currently having any new or unusual stomach/gastrointestinal issues at this time such asconstipation, diarrhea, abdominal pain, rectal bleeding etc?No 2. Do you have any difficulty swallowing? No 3. Do you have any implanted devices such as a defibrillator, pacemaker, cardiac stents or deep brain stimulator? No 4. Do you take any Blood thinners such as Coumadin, Plavix, Xarelto, Eliquis, Brilinta or any otherblood thinner? No 5. Do you have any new or past cardiac (heart) or pulmonary (lung) issues? No 6. Do you currently use any oxygen? No 7. Have you been hospitalized in the past 6 weeks? No 8. Have you had difficulty with anesthesia previously re: Difficult intubation? No Other difficulty or allergic reaction to anesthesia other than post op N/V? No 9. Are you on dialysis? No 10. Do you have any bleeding disorders such as hemophilia or Factor 5? No 11. Are you an Insulin Dependent Diabetic? No IF ANY OF THE TOP ELEVEN QUESTIONS ARE ANSWERED YES PLEASE SCHEDULE THE PATIENT FOR A CONSULT. advised 12. Is the patient's BMI 40 or greater? No:Body mass index is 38.23 kg/m .. 13. Do you take any narcotics or anti-Anxiety medications? No 14. Do you use any illegal or recreational drugs including marijuana? No 15. Any alcohol use: No. 16. Have you been diagnosed with chronic liver disease such as hepatitis or cirrhosis? No 17. Do you have a seizure disorder? No 18. Do you have ulcerative colitis or Crohn's disease? No 19. Are you or could you be ? No 20. Any other important health information we should be made aware of prior to your colonoscopy? No To be completed by LIP: Did patient have MAC anesthesia with a previous endoscopy procedure? No Patient appropriate for Open Access Colonoscopy: Yes: appropriate for Open Access Procedure Checklist: Prior to closing the encounter: Complete questionnaire: Yes Confirm Prep order has been Ordered/Pended: Yes. Patient's procedure could be delayed if not given the script for the prep. Please ensure the prep is escripted to pharmacy or printed. Instructions for the prep will print upon filing or pending thissmartset. Please send all open access questionnaires to [facility] Pool #[id number] documented in this encounterOhiohealth12-12-2023 Instructions* Patient Instructions* Bhavana Rosales APRN.CNP - 10/09/2023 7:40 AM EST Images from the original note were not included. Bowel Preparation Instructions for: Miralax-Gatorade Preparations IF YOU DO NOT FOLLOW THESE DIRECTIONS, YOUR COLONOSCOPY WILL BE CANCELLED. [facility] Instructions: Your bowel must be empty so that your doctor can clearly view your colon. Follow all of the instructions in this handout EXACTLY as they are written. Do NOT eat any solid food the ENTIRE day before your colonoscopy. Buy your bowel preparation at least 5 days before your colonoscopy. Four (4) Dulcolax laxative tablets containing 5mg of bisacodyl each (NOT Dulcolax stool softener) One (1) 8.3oz. bottle Miralax (238 grams) or generic equivalent 2 x 32oz. Bottles of Gatorade (NOT RED) Diabetic Patients: Use G2 (Gatorade 2) TRANSPORTATION on the Day of Your Exam A responsible adult MUST be present with you at Check In prior to your colonoscopy and REMAIN in the endoscopy area until you are discharged. You are NOT ALLOWED to drive, take a taxi or bus, or leave the Endoscopy Center ALONE. If you do not have a responsible production truck driver (family member or friend) withyou to take you home, your exam cannot be done with sedation and will be cancelled. Please bring a list of all of your current medications, including any Zbze-mps-Ydczxfr medications with you. Medications If you take insulin, diabetic medications or blood thinners such as Coumadin (warfarin), Plavix (clopidogrel), Ticlid (ticlopidine hydrochloride), Agrylin (anagrelide), Xarelto (Rivaroxaban), Pradaxa(Dabigatran), Eliquis (Apixaban), and Effient (Prasugrel). You MUST call the doctors who orders those medicines for instructions on altering the dosage before your colonoscopy. All other medications should be taken the day of the exam with a sip of water including ASPIRIN. Five (5) Days Before Your Colonoscopy Do NOT take medicines that stop diarrhea - such as Imodium, Kaopectate, or Pepto Bismol. Do NOT take fiber supplements - such as Metamucil, Citrucel, or Perdiem. Do NOT take products that contain iron - such as multi-vitamins (the label lists what is in the products). Three (3) Days Before Your Colonoscopy Do NOT eat high-fiber foods - such as popcorn, beans, seeds (flax, sunflower, quinoa), multigrain bread, nuts, salad/vegetables, or fresh and dried fruit. 1 Bowel Preparation Instructions for: Miralax-Gatorade Preparations One (1) Day Before Your Colonoscopy Only drink clear liquids the ENTIRE DAY before your colonoscopy. Do NOT eat any solid foods. Drink at least 8 ounces of clear liquids every hour after waking up. The clear liquids you can drink include: Clear Liquid (NO RED LIQUIDS) DO NOT DRINK Gatorade, Pedialyte or Powerade Clear broth or bouillon Coffee or tea (no milk or non-dairy creamer) Carbonated and non-carbonated soft drinks Lj-Aid or other fruit flavored drinks Strained fruit juices (no pulp) Jell-O, popsicles, hard candy Water Alcohol Milk or non-dairy creamers Noodles or vegetables in soup Juice with pulp Liquid you cannot see through Do not use tobacco/vaping products Mix 1/2 of Miralax bottle (119 grams) in each 32 ounces of Gatorade bottle until dissolved. Keep cool in the refrigerator. DO NOT ADD ICE. The bowel preparation solution will be consumed in two parts. Part 1 5:00 PM - Evening before your colonoscopy Take 4 Dulcolax tablets. 6 PM - Evening before your colonoscopy Drink 32 oz. of the mixed solution. Drink an 8 oz. glass of bowel preparation every 15 minutes for a total of 4 glasses. Fifteen (15) minutes later, drink an 8 oz. glass of of clear liquids every 15 minutes for a total of 2 glasses. You may continue to drink clear liquids till midnight. Part 2 On the day of your colonoscopy you may drink clear liquids up to (three) 3 hours prior to procedure. 4 1/2 hours before your colonoscopy Take another 32 oz. bottle of mixed solution. Drink an 8 oz. glass of bowel prep every 15 minutes for a total of 4 glasses. Fifteen (15) minutes later, drink an 8 oz. glass of clear liquids every 15 minutes for a total of 2glasses. You may continue to drink clear liquids up to (three) 3 hours before your exam. 2 09/2019 Bowel Preparation Instructions for: Miralax-Gatorade Preparations IF YOU DO NOT FOLLOW THESE DIRECTIONS, YOUR COLONOSCOPY WILL BE CANCELLED. [facility] Instructions: Your bowel must be empty so that your doctor can clearly view your colon. Follow all of the instructions in this handout EXACTLY as they are written. Do NOT eat any solid food the ENTIRE day before your colonoscopy. Buy your bowel preparation at least 5 days before your colonoscopy. Four (4) Dulcolax laxative tablets containing 5mg of bisacodyl each (NOT Dulcolax stool softener) One (1) 8.3oz. bottle Miralax (238 grams) or generic equivalent 2 x 32oz. Bottles of Gatorade (NOT RED) Diabetic Patients: Use G2 (Gatorade 2) TRANSPORTATION on the Day of Your Exam A responsible adult MUST be present with you at Check In prior to your colonoscopy and REMAIN in the endoscopy area until you are discharged. You are NOT ALLOWED to drive, take a taxi or bus, or leave the Endoscopy Center ALONE. If you do not have a responsible production truck driver (family member or friend) withyou to take you home, your exam cannot be done with sedation and will be cancelled. Please bring a list of all of your current medications, including any Gzqf-fgs-Bdjcgzf medications with you. Medications If you take insulin, diabetic medications or blood thinners such as Coumadin (warfarin), Plavix (clopidogrel), Ticlid (ticlopidine hydrochloride), Agrylin (anagrelide), Xarelto (Rivaroxaban), Pradaxa(Dabigatran), Eliquis (Apixaban), and Effient (Prasugrel). You MUST call the doctors who orders those medicines for instructions on altering the dosage before your colonoscopy. All other medications should be taken the day of the exam with a sip of water including ASPIRIN. Five (5) Days Before Your Colonoscopy Do NOT take medicines that stop diarrhea - such as Imodium, Kaopectate, or Pepto Bismol. Do NOT take fiber supplements - such as Metamucil, Citrucel, or Perdiem. Do NOT take products that contain iron - such as multi-vitamins (the label lists what is in the products). Three (3) Days Before Your Colonoscopy Do NOT eat high-fiber foods - such as popcorn, beans, seeds (flax, sunflower, quinoa), multigrain bread, nuts, salad/vegetables, or fresh and dried fruit. 1 Bowel Preparation Instructions for: Miralax-Gatorade Preparations One (1) Day Before Your Colonoscopy Only drink clear liquids the ENTIRE DAY before your colonoscopy. Do NOT eat any solid foods. Drink at least 8 ounces of clear liquids every hour after waking up. The clear liquids you can drink include: Clear Liquid (NO RED LIQUIDS) DO NOT DRINK Gatorade, Pedialyte or Powerade Clear broth or bouillon Coffee or tea (no milk or non-dairy creamer) Carbonated and non-carbonated soft drinks Lj-Aid or other fruit flavored drinks Strained fruit juices (no pulp) Jell-O, popsicles, hard candy Water Alcohol Milk or non-dairy creamers Noodles or vegetables in soup Juice with pulp Liquid you cannot see through Do not use tobacco/vaping products Mix 1/2 of Miralax bottle (119 grams) in each 32 ounces of Gatorade bottle until dissolved. Keep cool in the refrigerator. DO NOT ADD ICE. The bowel preparation solution will be consumed in two parts. Part 1 5:00 PM - Evening before your colonoscopy Take 4 Dulcolax tablets. 6 PM - Evening before your colonoscopy Drink 32 oz. of the mixed solution. Drink an 8 oz. glass of bowel preparation every 15 minutes for a total of 4 glasses. Fifteen (15) minutes later, drink an 8 oz. glass of of clear liquids every 15 minutes for a total of 2 glasses. You may continue to drink clear liquids till midnight. Part 2 On the day of your colonoscopy you may drink clear liquids up to (three) 3 hours prior to procedure. 4 1/2 hours before your colonoscopy Take another 32 oz. bottle of mixed solution. Drink an 8 oz. glass of bowel prep every 15 minutes for a total of 4 glasses. Fifteen (15) minutes later, drink an 8 oz. glass of clear liquids every 15 minutes for a total of 2glasses. You may continue to drink clear liquids up to (three) 3 hours before your exam. 2 09/2019 Miralax/Dulcolax Bowel Prep For this bowel preparation, you will need to purchase the following medications at any pharmacy: Over the counter Miralax (generic name is polyethylene glycol) 8.3 oz or 238 grams Four (4) Dulcolax (generic name is Bisacodyl) tablets 3 days prior to your procedure, you need to be on a low fiber diet (Such as popcorn, beans, seeds, nuts, salad and raw vegetables, corn, fresh and dried fruit and multi-grain bread) YOU MUST BE ON CLEAR LIQUIDS FOR 2 FULL DAYS PRIOR TO YOUR COLONOSCOPY Day one which would be two days before your colonoscopy, you will need to be on clear liquids all day. You may have coffee or tea-black only (no cream), clear broths (beef, chicken or vegetable), apple juice, white grape juice, pop, Gatorade, Powerade, lemonade, Jello, popsicles, Lj-aid, and water-But nothing red or dark purple in color and no dairy products, tomato or orange juices. Day two which would be the day before your colonoscopy continue clear liquids all day as above. And follow the instructions below: 8:00 AM - Mix the Miralax with 64 oz of Gatorade or another clear liquid of choice and place in refrigerator. Most people say the drink is better cold. 4:00 PM - Take 2 of the Dulcolax tablets with 8 oz of water. 6:00 PM - Start to drink the Miralax mixture. You must finish it by midnight. 8:00 PM - Take the other 2 Dulcolax tablets with 8 oz of water. You may continue to drink clear liquids while you are taking your prep and after you finish it as long as it is before midnight. Drink lots of fluids so you don t become dehydrated. Nothing to drink after midnight the night before the procedure unless you are instructed differently by the physician or nurses. Please remember to take your normal medications the morning of the procedure with a small sip of water especially your blood pressure medications. If you are diabetic, you need to contact your physician about how to take your diabetic medications and/or insulin during the prepping period and the day of your procedure. Any questions please call: Dr. Laurent or Dr. Guaman [phone] Meggan Rodriguez [phone] Dr. Rockwell [phone] [facility] nurses [phone] documented in this encounterOhiohealth11-30-2023 Progress note Author Alice Am[facility] September 27, 2023 9:35am Note Date/Time September 27, 2023 9:35am [facility] [address] [place] [id number] Progress Note - Wound Care 09/27/23 0933 MR#: [id number] Acct: [id number] Name: ALEJANDRORUBEN Eunice Cornejo. Rep #:[id number] 05 : 1965 58 From: Alice dickerson MD PCP: Dr. George Frausto MD Status :[facility] Location: History of Present Illness Date of Service: 09/27/23 Chief Complaint: ulcers to the left lower leg History of Wound: This is a 54-year-old male presents to wound healing center with a long-standing history of chronic venous insufficiency, chronic venous hypertension, lower extremity edema, lower extremity pain, and chronic left lower extremity ulcer. 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 He is currently wearing graduated compression stockings which are documented to be 20-30 mmHg compression and these are thigh high. He reports great compliance with use. Heis also had previous arterial work-up with no intervention recommended by letter, his vascular surgeon. He denies taking nutritional supplementation. [place] and had a biopsy of the ulcer site. He also was previously treated by infectious disease for various contaminations and infections. He is not antibiotics at this time nor does he have any redness or odor coming from the wound. He denies fever, chill, nausea, vomiting, loss of appetite. 05/18/22: Mr. Allen presents with a new right lower extremity ulceration. He states that this has been present for months and he has been trying to manage itat home without any significant improvement. Opened up months ago, no known precipitating factor. Has been applying wound dressings without any significantimprovement. He reports increased drainage. Denies significant pain. No chills, fever or feeling of unwell. Progress of Wound: Slight improvement. No new concerns at this time. Objective Data Objective Data Vital Signs: Vital Signs Temp Pulse Resp BP Pulse Ox 96.5 F L 97 16 156/73 H 99 09/27/23 07:57 09/27/23 07:57 09/27/23 07:57 09/27/23 07:57 08/29/23 00:49 Body Mass Index (BMI) 31.4 Lab / Micro Data Micro: Microbiology 09/13/23 08:37 Wound - Left Foot Gram Stain - Final 09/13/23 08:37 Wound - Left Foot Wound Culture - Final Staphylococcus epidermidis Escherichia coli Pseudomonas aeruginosa Corynebacterium jeikeium 09/13/23 08:37 Wound - Left Foot Anaerobic Culture - Final Anaerobic cocci Charges/Coding Procedures Integumentary [id number]: [id number] Lakeisha subq tissue 20 sq cm/< Physical Exam Const alert, oriented x3 and no apparent distress General Appearance: cooperative and comfortable HEENT normocephalic Head and Scalp: normal to inspection, normocephalic and atraumatic Eyes EOMs intact bilaterally Neck full ROM and supple General: normal visual inspection Resp normal respiratory effort Effort and Inspection: able to speak in complete sentences Extremity normal to inspection General Extremity: edema Skin Wounds: wounds noted Neuro oriented x3 and CN's II-XII intact bilaterally Psych mental status grossly normal Appearance: grossly normal Debridement Note Debridement Note Wound debrided: Left medial ankle Type of Debridement: Excisional debridement Anesthesia Used: 5% Lidocaine Gel Depth: Down to and including healthy tissue and in the subcutaneous layer Percentage of wound debrided: 100 Instrument Used: 5mm curette Tissue Removed: Slough and devitalized tissue Severity: Fat Layer Exposed Bleeding Controlled with: Pressure Patient tolerated procedure: Patient tolerated procedure well Post-Debridement Measurements and Additional Note: Post-Debridement Measurements/Treatment - Nurse 1 - General Ulcer Assessment Start: 08/30/23 07:58 Freq: Status: Active Protocol: SHANTA Activity Type Activity Date Activity User E-sign Co-sign Detail Recorded Client Recorded Date Recorded By Document 08/30/23 07:59 JF Laptop 08/30/23 08:05 JF Document 09/13/23 08:07 DL Desktop 09/13/23 08:13 DL Document 09/27/23 07:57 Laptop 09/27/23 07:59 JF 08/30/23 09/13/23 09/27/23 07:59 08:07 07:57 - Today's Visit Information Type of service Follow-up Visit Follow-up Visit Follow-up Visit (Physician/SUPERVISOR CHANNEL PROCESS (Physician/SUPERVISOR CHANNEL PROCESS (Physician/SUPERVISOR CHANNEL PROCESS ) ) ) Arrival Mode Ambulatory Ambulatory Ambulatory Transfer Assistance None Patient Identification Verified (Name & Yes Yes Yes ) Patient Requires Transmission-Based No No No Precautions Height and Weight Body Mass Index (BMI) 31.4 31.4 31.4 BMI Classification Obese Obese Obese Vital Signs Temperature (97.8 F-99.1 F) 96.9 F L 96.6 F L 96.5 F L Temperature Source Temporal Temporal Temporal Pulse Rate (60-100) 90 92 97 Pulse Location Monitor Monitor Monitor Respiratory Rate (12-18) 18 18 16 Respiratory rate source Observation Observation Observation Blood Pressure (90/60-120/80) 147/84 H 147/71 H 156/73 H Blood Pressure Mean (mm Hg) 105 96 100 Source Monitor Monitor Monitor Position Semi-Fowlers Blood Pressure Location Left Arm History Since Last Visit- (Skip if this is Patient's initial visit) Have you changed medications since your No No No last visit? Any new allergies or adverse reactions No No No Had a fall/change in ADL's that may No No No increase risk of falls Signs or symptoms of abuse and/or No No No neglect since last visit Have you been in the hospital since your No No No last visit? Has dressing in place as prescribed Yes Yes Yes Has compression in place as prescribed Yes Yes Yes Has offloadiing in place as prescribed N/A N/A N/A Experienced any changes in pain level or No No No management Left Footwear Regular Shoe Right Footwear Regular Shoe Pain Scale: 0-10 Numeric Is Patient Pain Free? Yes Yes Yes WC - Nurse 1 - General Ulcer Measurement Start: 08/30/23 07:58 Freq: Status: Active Protocol: Activity Type Activity Date Activity User E-sign Co-sign Detail Recorded Client Recorded Date Recorded By Document 08/30/23 07:59 JF Laptop 08/30/23 08:05 Document 09/13/23 08:07 DL Desktop 09/13/23 08:13 DL Document 09/27/23 07:57 Laptop 09/27/23 07:59 JF 08/30/23 09/13/23 09/27/23 07:59 08:07 07:57 Wound Center Nurse 1 #17- L DORSAL FOOT -Combined with other wound No -Current Size (cm) - Length 1.2 1 1.2 -Current Size (cm) - Width 0.4 0.4 0.3 -Current Size (cm) - Depth 0.1 0.1 0.2 -Total Square Cm 0.48 0.4 0.36 -Photo Taken Yes No -Epithelialization None Present -Tunneling No -Undermining/Tunneling No -Circular Undermining No -Exudate Amt Medium Small Medium -Exudate Type Serosanguineous Serosanguineous Serosanguineous -Wound Margin Thickened Thickened Flat & Intact -Granulation Amt Medium (34-66%) Small (1-33%) Medium (34-66%) -Granulation Quality Tet[place],Red Tetonia Red -Slough/Fibrin Yes -Necrosis Amt Medium (34-66%) Small (1-33%) Medium (34-66%) -Necrotic Tissue Type Adherent Slough Adherent Slough Adherent Slough -Structure Exposed N/A N/A N/A -Texture (Ara-wound Skin Appearance) Scarring Scarring Assessed, Localized Edema -Moisture (Ara-wound Skin Appearance) Dry/Scaly Dry/Scaly Assessed -Color (Ara-wound Skin Appearance) Hemosiderin Hemosiderin Assessed Staining Staining -Temperature (Ara-wound Skin No Abnormality No Abnormality No Abnormality Appearance) (Pt Warm) (Pt Warm) (Pt Warm) -Tenderness on Palpation (Ara-wound No No No Skin Appearance) -Ulcer Cleansing Soap and Water Soap and Water Wound Cleanser -Foul Odor after Cleansing No No No -Anesthetic Used 5% Lidocaine 5% Lidocaine 5% Lidocaine Gel Gel Gel #10 Left Medial Ankle -Combined with other wound No -Current Size (cm) - Length 3.6 3.8 3.4 -Current Size (cm) - Width 1.7 2.2 1.9 -Current Size (cm) - Depth 0.1 0.2 0.2 -Total Square Cm 6.12 8.36 6.46 -Photo Taken Yes No -Epithelialization None Present -Tunneling No -Undermining/Tunneling No -Circular Undermining No -Exudate Amt Medium Medium Small -Exudate Type Serosanguineous Serosanguineous Serosanguineous -Wound Margin Thickened Thickened Flat & Intact -Granulation Amt Medium (34-66%) Medium (34-66%) Medium (34-66%) -Granulation Quality [place],Red Red Red -Slough/Fibrin Yes -Necrosis Amt Medium (34-66%) None Present (0 Small (1-33%) %) -Necrotic Tissue Type Adherent Slough Adherent Slough Adherent Slough -Structure Exposed N/A N/A N/A -Texture (Ara-wound Skin Appearance) Scarring Scarring Assessed, Localized Edema -Moisture (Ara-wound Skin Appearance) Dry/Scaly Maceration Assessed,Dry/ Scaly -Color (Ara-wound Skin Appearance) Hemosiderin Hemosiderin Assessed Staining Staining -Temperature (Ara-wound Skin No Abnormality No Abnormality Appearance) (Pt Warm) (Pt Warm) -Tenderness on Palpation (Ara-wound No No No Skin Appearance) -Ulcer Cleansing Soap and Water Soap and Water Wound Cleanser -Foul Odor after Cleansing No No No -Anesthetic Used 5% Lidocaine 5% Lidocaine 5% Lidocaine Gel Gel Gel Lower Limb Edema Present Yes Left Calf (cm) 35.8 35.5 35.6 Left Ankle (cm) 23.3 22.5 22.4 WC - Nurse 2 - General Ulcer CM Notes Start: 08/30/23 07:58 Freq: Status: Active Protocol: Activity Type Activity Date Activity User E-sign Co-sign Detail Recorded Client Recorded Date Recorded By Document 08/30/23 08:23 GM Desktop 08/30/23 08:29 GM Document 09/13/23 08:21 Desktop 09/13/23 08:32 Document 09/27/23 08:20 Desktop 09/27/23 08:27 08/30/23 09/13/23 09/27/23 08:23 08:21 08:20 Wound Center Nurse 2 #17- L DORSAL FOOT -Time 08:24 08:21 08:20 -Correct Patient Yes Yes Yes -Correct Side, Site, Position Yes Yes Yes -Correct Procedure Yes Yes Yes -Procedure Performed Yes Yes Yes -Type of Procedure Debridement Debridement Debridement -Clinical Debridement Subcutaneous Subcutaneous Subcutaneous -Tissue Removed Subcutaneous Subcutaneous Subcutaneous -Post Debridement (cm) - Length 1.7 1.5 1.3 -Post Debridement (cm) - Width 0.3 1.2 0.2 -Post Debridement (cm) - Depth 0.1 0.1 0.1 -Total Square (Post) (cm) 0.51 1.80 0.26 -Area of Debridement (cm) - Length 1.7 10.5 1.3 -Area of Debridement (cm) - Width 0.3 0.2 0.2 -Total Square (Area) (cm) 0.51 2.10 0.26 -Tunneling No No No -Undermining/Tunneling No No No -Circular Undermining No No No -Wound/Ulcer Outcome Not Healed Not Healed Not Healed -Ulcer Cleansing Rinsed/ Rinsed/ Rinsed/ Irrigated with Irrigated with Irrigated with Saline Saline Saline -Foul Odor after Cleansing No No No -Bioengineered Tissue No No No -Bleeding Controlled with Pressure Pressure Pressure -Treatment Response Procedure Procedure Procedure Tolerated Well Tolerated Well Tolerated Well -Debridement - Subq, 1st 20sq cm No No No #10 Left Medial Ankle -Time 08:24 08:21 08:20 -Correct Patient Yes Yes Yes -Correct Side, Site, Position Yes Yes Yes -Correct Procedure Yes Yes Yes -Procedure Performed Yes Yes Yes -Type of Procedure Debridement Debridement Debridement -Clinical Debridement Subcutaneous Subcutaneous Subcutaneous -Tissue Removed Subcutaneous Subcutaneous Subcutaneous -Post Debridement (cm) - Length 3.8 3.5 3.5 -Post Debridement (cm) - Width 2.3 2.1 1.9 -Post Debridement (cm) - Depth 0.2 0.2 0.2 -Total Square (Post) (cm) 8.74 7.35 6.65 -Area of Debridement (cm) - Length 3.8 3.5 3.5 -Area of Debridement (cm) - Width 2.3 2.1 1.9 -Total Square (Area) (cm) 8.74 7.35 6.65 -Tunneling No No No -Undermining/Tunneling No No No -Circular Undermining No No No -Wound/Ulcer Outcome Not Healed Not Healed Not Healed -Ulcer Cleansing Rinsed/ Rinsed/ Rinsed/ Irrigated with Irrigated with Irrigated with Saline Saline Saline -Foul Odor after Cleansing No No No -Bioengineered Tissue No No No -Bleeding Controlled with Pressure Pressure Pressure -Treatment Response Procedure Procedure Procedure Tolerated Well Tolerated Well Tolerated Well -Debridement - Subq, 1st 20sq cm Yes Yes Yes Pain Scale: 0-10 Numeric Is Patient Pain Free? Yes Yes Yes - Nurse 3 - General Ulcer D/C NN Start: 08/30/23 07:58 Freq: Status: Active Protocol: Activity Type Activity Date Activity User E-sign Co-sign Detail Recorded Client Recorded Date Recorded By Document 08/30/23 08:33 KW Desktop 08/30/23 08:34 KW Document 09/13/23 08:34 DL Desktop 09/13/23 08:36 DL Document 09/27/23 08:32 JF Laptop 09/27/23 08:33 JF 08/30/23 09/13/23 09/27/23 08:33 08:34 08:32 Wound Care Center Nurse 3 #17- L DORSAL FOOT -Ulcer Cleansing Rinsed/ Rinsed/ Irrigated with Irrigated with Saline Saline -Foul Odor after Cleansing No -Primary Dressing Applied Hysept ($) -Primary Dressing Covered/Secured with Dry Gauze, Dry Gauze & Dry Gauze Secured with Roll Gauze, Tape Secured with Tape #10 Left Medial Ankle -Ulcer Cleansing Rinsed/ Rinsed/ Irrigated with Irrigated with Saline Saline -Foul Odor after Cleansing No No -Primary Dressing Covered/Secured with Dry Gauze, Dry Gauze & Dry Gauze Secured with Roll Gauze, Tape Secured with Tape Treatment Response Procedure Tolerated Well Pain Scale: 0-10 Numeric Is Patient Pain Free? Yes Yes Yes - Visit Discharge Discharge Condition Stable Stable Stable Ambulatory Status Ambulatory Ambulatory Ambulatory Transportation Private Auto Private Auto Private Auto Medication Reconcilliation completed & No Yes provided to patient/care provider Clinical Summary of Care Provided Yes Yes Notes: Pt to resume No dressings bactroban, done today adaptic,aquacel since patient at home. will be heading home to shower since he works nights. Discussed how to do dressing and patient verbalized understanding. Additional Wound Wound debrided: Left dorsal foot Type of Debridement: Excisional debridement Anesthesia Used: 5% Lidocaine Gel Depth: Down to and including healthy tissue and in the subcutaneous layer Percentage of wound debrided: 100 Instrument Used: 3mm curette Tissue Removed: Slough and devitalized tissue Severity: Fat Layer Exposed Amount of bleeding with debridement: Mild Bleeding Controlled with: Pressure Patient tolerated procedure: Patient tolerated procedure well Assessment/Plan Assessment/Plan (1) Ulcer of left lower extremity with fat layer exposed: CODE(S): L97.922 - Non-pressure chronic ulcer of unspecified part of left lower leg with fat layer exposed (2) PVD (peripheral vascular disease): CODE(S): I73.9 - Peripheral vascular disease, unspecified (3) Chronic venous insufficiency: CODE(S): I87.2 - Venous insufficiency (chronic) (peripheral) (4) Delayed wound healing: CODE(S): T14.8XXD - Other injury of unspecified body region, subsequent encounter PLAN: Plan Debridement done as documented above, procedure was well-tolerated. Slight improvement in the last 2 weeks. No maceration appreciated today and he does not report any significant drainage. Cultures from last visit with minimal growth. 10 minutes Dakins soak daily. Continue Aquacel, adaptic and care max to both ulcers. He was advised that he could change it more than once if he notes increased drainage. Continue mupirocin ointment as well. Continue use ofcompression stockings, leg elevation and exercise. Increased protein intake, protein supplements, zinc and vitamin C also recommended. Continue multivitamins. His questions were answered and he was advised to call with anyfurther questions or concerns. Follow-up in 2 weeks. This note was generated with RadioFrame[employer] software. It may contain incorrectwords, spelling, and punctuation that were not noted in checking the note beforesigning. 09/27/23 2554 <Electronically signed by Alice Amaya MD> Cosigner Signature (if applicable): CC: ~ Signed [facility] Work Phone: 1(785) 600-843711-16-2023 Progress note Author Alice Amaya [facility] September 13, 2023 9:16am Note Date/Time September 13, 2023 9:16am [facility] [address] [place] [address] Progress Note - Wound Care 09/13/23 0914 MR#: [id number] Acct: [id number] Name: RUEBN ALLEN Jr. Rep #:[id number] : 1965 58 From: Alice dickerson MD PCP: Dr. George Frausto MD Status :REG RCR Location: History of Present Illness Date of Service: 09/13/23 Chief Complaint: ulcers to the left lower leg History of Wound: This is a 54-year-old male presents to wound healing center with a long-standing history of chronic venous insufficiency, chronic venous hypertension, lower extremity edema, lower extremity pain, and chronic left lower extremity ulcer. 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 He is currently wearing graduated compression stockings which are documented to be 20-30 mmHg compression and these are thigh high. He reports great compliance with use. Heis also had previous arterial work-up with no intervention recommended by letter, his vascular surgeon. He denies taking nutritional supplementation[facility] of [facility] ulcer site. He also was previously treated by infectious disease for various contaminations and infections. He is not antibiotics at this time nor does he have any redness or odor coming from the wound. He denies fever, chill, nausea, vomiting, loss of appetite. 05/18/22: Mr. Allen presents with a new right lower extremity ulceration. He states that this has been present for months and he has been trying to manage itat home without any significant improvement. Opened up months ago, no known precipitating factor. Has been applying wound dressings without any significantimprovement. He reports increased drainage. Denies significant pain. No chills, fever or feeling of unwell. Progress of Wound: Mild maceration noted around the ankle ulcer. He states that he has noted increased drainage lately. Objective Data Objective Data Vital Signs: Vital Signs Temp Pulse Resp BP Pulse Ox 96.6 F L 92 18 147/71 H 99 09/13/23 08:07 09/13/23 08:07 09/13/23 08:07 09/13/23 08:07 08/29/23 00:49 Body Mass Index (BMI) 31.4 Charges/Coding Procedures Integumentary 111xxx-113xx: 25371 Lakeisha subq tissue 20 sq cm/< Physical Exam Const alert, oriented x3 and no apparent distress General Appearance: cooperative and comfortable HEENT normocephalic Head and Scalp: normal to inspection, normocephalic and atraumatic Eyes EOMs intact bilaterally Neck full ROM and supple General: normal visual inspection Resp normal respiratory effort Effort and Inspection: able to speak in complete sentences Extremity normal to inspection General Extremity: edema Skin Wounds: wounds noted Neuro oriented x3 and CN's II-XII intact bilaterally Psych mental status grossly normal Appearance: grossly normal Debridement Note Debridement Note Wound debrided: Left medial ankle Type of Debridement: Excisional debridement Anesthesia Used: 5% Lidocaine Gel Depth: Down to and including healthy tissue and in the subcutaneous layer Percentage of wound debrided: 100 Instrument Used: 5mm curette Tissue Removed: Slough and devitalized tissue Severity: Fat Layer Exposed Bleeding Controlled with: Pressure Patient tolerated procedure: Patient tolerated procedure well Post-Debridement Measurements and Additional Note: Post-Debridement Measurements/Treatment - Nurse 1 - General Ulcer Assessment Start: 08/30/23 07:58 Freq: Status: Active Protocol: SHANTA Activity Type Activity Date Activity User E-sign Co-sign Detail Recorded Client Recorded Date Recorded By Document 08/30/23 07:59 Laptop 08/30/23 08:05 JF Document 09/13/23 08:07 DL Desktop 09/13/23 08:13 DL 08/30/23 09/13/23 07:59 08:07 - Today's Visit Information Type of service Follow-up Visit Follow-up Visit (Physician/SUPERVISOR CHANNEL PROCESS (Physician/SUPERVISOR CHANNEL PROCESS ) ) Arrival Mode Ambulatory Ambulatory Transfer Assistance None Patient Identification Verified (Name & Yes Yes ) Patient Requires Transmission-Based No No Precautions Height and Weight Body Mass Index (BMI) 31.4 31.4 BMI Classification Obese Obese Vital Signs Temperature (97.8 F-99.1 F) 96.9 F L 96.6 F L Temperature Source Temporal Temporal Pulse Rate (60-100) 90 92 Pulse Location Monitor Monitor Respiratory Rate (12-18) 18 18 Respiratory rate source Observation Observation Blood Pressure (90/60-120/80) 147/84 H 147/71 H Blood Pressure Mean (mm Hg) 105 96 Source Monitor Monitor History Since Last Visit- (Skip if this is Patient's initial visit) Have you changed medications since your No No last visit? Any new allergies or adverse reactions No No Had a fall/change in ADL's that may No No increase risk of falls Signs or symptoms of abuse and/or No No neglect since last visit Have you been in the hospital since your No No last visit? Has dressing in place as prescribed Yes Yes Has compression in place as prescribed Yes Yes Has offloadiing in place as prescribed N/A N/A Experienced any changes in pain level or No No management Pain Scale: 0-10 Numeric Is Patient Pain Free? Yes Yes WC - Nurse 1 - General Ulcer Measurement Start: 08/30/23 07:58 Freq: Status: Active Protocol: Activity Type Activity Date Activity User E-sign Co-sign Detail Recorded Client Recorded Date Recorded By Document 08/30/23 07:59 Laptop 08/30/23 08:05 Document 09/13/23 08:07 Desktop 09/13/23 08:13 DL 08/30/23 09/13/23 07:59 08:07 Wound Center Nurse 1 #17- L DORSAL FOOT -Current Size (cm) - Length 1.2 1 -Current Size (cm) - Width 0.4 0.4 -Current Size (cm) - Depth 0.1 0.1 -Total Square Cm 0.48 0.4 -Photo Taken Yes -Exudate Amt Medium Small -Exudate Type Serosanguineous Serosanguineous -Wound Margin Thickened Thickened -Granulation Amt Medium (34-66%) Small (1-33%) -Granulation Quality [place],Red [place] -Necrosis Amt Medium (34-66%) Small (1-33%) -Necrotic Tissue Type Adherent Slough Adherent Slough -Structure Exposed N/A N/A -Texture (Ara-wound Skin Appearance) Scarring Scarring -Moisture (Ara-wound Skin Appearance) Dry/Scaly Dry/Scaly -Color (Ara-wound Skin Appearance) Hemosiderin Hemosiderin Staining Staining -Temperature (Ara-wound Skin No Abnormality No Abnormality Appearance) (Pt Warm) (Pt Warm) -Tenderness on Palpation (Ara-wound No No Skin Appearance) -Ulcer Cleansing Soap and Water Soap and Water -Foul Odor after Cleansing No No -Anesthetic Used 5% Lidocaine 5% Lidocaine Gel Gel #10 Left Medial Ankle -Current Size (cm) - Length 3.6 3.8 -Current Size (cm) - Width 1.7 2.2 -Current Size (cm) - Depth 0.1 0.2 -Total Square Cm 6.12 8.36 -Photo Taken Yes -Exudate Amt Medium Medium -Exudate Type Serosanguineous Serosanguineous -Wound Margin Thickened Thickened -Granulation Amt Medium (34-66%) Medium (34-66%) -Granulation Quality [place],Red Red -Necrosis Amt Medium (34-66%) None Present (0 %) -Necrotic Tissue Type Adherent Slough Adherent Slough -Structure Exposed N/A N/A -Texture (Ara-wound Skin Appearance) Scarring Scarring -Moisture (Ara-wound Skin Appearance) Dry/Scaly Maceration -Color (Ara-wound Skin Appearance) Hemosiderin Hemosiderin Staining Staining -Temperature (Ara-wound Skin No Abnormality Appearance) (Pt Warm) -Tenderness on Palpation (Ara-wound No No Skin Appearance) -Ulcer Cleansing Soap and Water Soap and Water -Foul Odor after Cleansing No No -Anesthetic Used 5% Lidocaine 5% Lidocaine Gel Gel Left Calf (cm) 35.8 35.5 Left Ankle (cm) 23.3 22.5 WC - Nurse 2 - General Ulcer CM Notes Start: 08/30/23 07:58 Freq: Status: Active Protocol: Activity Type Activity Date Activity User E-sign Co-sign Detail Recorded Client Recorded Date Recorded By Document 08/30/23 08:23 GM Desktop 08/30/23 08:29 GM Document 09/13/23 08:21 GM Desktop 09/13/23 08:32 GM 08/30/23 09/13/23 08:23 08:21 Wound Center Nurse 2 #17- L DORSAL FOOT -Time 08:24 08:21 -Correct Patient Yes Yes -Correct Side, Site, Position Yes Yes -Correct Procedure Yes Yes -Procedure Performed Yes Yes -Type of Procedure Debridement Debridement -Clinical Debridement Subcutaneous Subcutaneous -Tissue Removed Subcutaneous Subcutaneous -Post Debridement (cm) - Length 1.7 1.5 -Post Debridement (cm) - Width 0.3 1.2 -Post Debridement (cm) - Depth 0.1 0.1 -Total Square (Post) (cm) 0.51 1.80 -Area of Debridement (cm) - Length 1.7 10.5 -Area of Debridement (cm) - Width 0.3 0.2 -Total Square (Area) (cm) 0.51 2.10 -Tunneling No No -Undermining/Tunneling No No -Circular Undermining No No -Wound/Ulcer Outcome Not Healed Not Healed -Ulcer Cleansing Rinsed/ Rinsed/ Irrigated with Irrigated with Saline Saline -Foul Odor after Cleansing No No -Bioengineered Tissue No No -Bleeding Controlled with Pressure Pressure -Treatment Response Procedure Procedure Tolerated Well Tolerated Well -Debridement - Subq, 1st 20sq cm No No #10 Left Medial Ankle -Time 08:24 08:21 -Correct Patient Yes Yes -Correct Side, Site, Position Yes Yes -Correct Procedure Yes Yes -Procedure Performed Yes Yes -Type of Procedure Debridement Debridement -Clinical Debridement Subcutaneous Subcutaneous -Tissue Removed Subcutaneous Subcutaneous -Post Debridement (cm) - Length 3.8 3.5 -Post Debridement (cm) - Width 2.3 2.1 -Post Debridement (cm) - Depth 0.2 0.2 -Total Square (Post) (cm) 8.74 7.35 -Area of Debridement (cm) - Length 3.8 3.5 -Area of Debridement (cm) - Width 2.3 2.1 -Total Square (Area) (cm) 8.74 7.35 -Tunneling No No -Undermining/Tunneling No No -Circular Undermining No No -Wound/Ulcer Outcome Not Healed Not Healed -Ulcer Cleansing Rinsed/ Rinsed/ Irrigated with Irrigated with Saline Saline -Foul Odor after Cleansing No No -Bioengineered Tissue No No -Bleeding Controlled with Pressure Pressure -Treatment Response Procedure Procedure Tolerated Well Tolerated Well -Debridement - Subq, 1st 20sq cm Yes Yes Pain Scale: 0-10 Numeric Is Patient Pain Free? Yes Yes WC - Nurse 3 - General Ulcer D/C NN Start: 08/30/23 07:58 Freq: Status: Active Protocol: Activity Type Activity Date Activity User E-sign Co-sign Detail Recorded Client Recorded Date Recorded By Document 08/30/23 08:33 KW Desktop 08/30/23 08:34 KW Document 09/13/23 08:34 DL Desktop 09/13/23 08:36 DL 08/30/23 09/13/23 08:33 08:34 Wound Care Center Nurse 3 #17- L DORSAL FOOT -Ulcer Cleansing Rinsed/ Irrigated with Saline -Foul Odor after Cleansing No -Primary Dressing Covered/Secured with Dry Gauze, Dry Gauze & Secured with Roll Gauze, Tape Secured with Tape #10 Left Medial Ankle -Ulcer Cleansing Rinsed/ Irrigated with Saline -Foul Odor after Cleansing No -Primary Dressing Covered/Secured with Dry Gauze, Dry Gauze & Secured with Roll Gauze, Tape Secured with Tape Treatment Response Procedure Tolerated Well Pain Scale: 0-10 Numeric Is Patient Pain Free? Yes Yes - Visit Discharge Discharge Condition Stable Stable Ambulatory Status Ambulatory Ambulatory Transportation Private Auto Private Auto Medication Reconcilliation completed & No provided to patient/care provider Clinical Summary of Care Provided Yes Notes: Pt to resume bactroban, adaptic,aquacel at home. Additional Wound Wound debrided: Left dorsal foot Type of Debridement: Excisional debridement Anesthesia Used: 5% Lidocaine Gel Depth: Down to and including healthy tissue and in the subcutaneous layer Percentage of wound debrided: 100 Instrument Used: 3mm curette Tissue Removed: Slough and devitalized tissue Severity: Fat Layer Exposed Amount of bleeding with debridement: Mild Bleeding Controlled with: Pressure Patient tolerated procedure: Patient tolerated procedure well Assessment/Plan Assessment/Plan (1) Ulcer of left lower extremity with fat layer exposed: CODE(S): L97.922 - Non-pressure chronic ulcer of unspecified part of left lower leg with fat layer exposed (2) PVD (peripheral vascular disease): CODE(S): I73.9 - Peripheral vascular disease, unspecified (3) Chronic venous insufficiency: CODE(S): I87.2 - Venous insufficiency (chronic) (peripheral) (4) Delayed wound healing: CODE(S): T14.8XXD - Other injury of unspecified body region, subsequent encounter PLAN: Plan Debridement done as documented above, procedure was well-tolerated. Maceration noted but overall stable also. He also reports increased drainage. Cultures taken. Continue Aquacel, adaptic and care max to both ulcers. He was advised that he could change it more than once if he notes increased drainage. Continuemupirocin ointment as well. Continue use of compression stockings, leg elevation and exercise. Increased protein intake, protein supplements, zinc andvitamin C also recommended. Continue multivitamins. His questions were answered and he was advised to call with any further questions or concerns. Follow-up in 2 weeks. This note was generated with RadioFrame[employer] software. It may contain incorrectwords, spelling, and punctuation that were not noted in checking the note beforesigning. 09/13/23915 <Electronically signed by Alice Amaya MD> Cosigner Signature (if applicable): CC: ~ Signed [facility] Work Phone: 1(314) 144-501711-02-2023 Progress note Author Alice Amaya [facility] August 30, 2023 9:59am Note Date/Time August 30, 2023 1 0:00am [facility] [address] [place] [id number] Progress Note - Wound Care 08/30/23 0952 MR#: [id number] Acct: [id number] Name: RUBEN ALLEN JrJohnnie Rep #:[id number] : 1965 58 From: Alice dickerson MD PCP: Dr. George Frausto MD Status :REG RCR Location: History of Present Illness Date of Service: 08/30/23 Chief Complaint: ulcers to the left lower leg History of Wound: This is a 54-year-old male presents to wound healing center with a long-standing history of chronic venous insufficiency, chronic venous hypertension, lower extremity edema, lower extremity pain, and chronic left lower extremity ulcer. 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 He is currently wearing graduated compression stockings which are documented to be 20-30 mmHg compression and these are thigh high. He reports great compliance with use. Heis also had previous arterial work-up with no intervention recommended by letter, his vascular surgeon. He denies taking nutritional supplementation. [facility] and had a biopsy of the ulcer site. He also was previously treated by infectious disease for various contaminations and infections. He is not antibiotics at this time nor does he have any redness or odor coming from the wound. He denies fever, chill, nausea, vomiting, loss of appetite. 05/18/22: Mr. Allen presents with a new right lower extremity ulceration. He states that this has been present for months and he has been trying to manage itat home without any significant improvement. Opened up months ago, no known precipitating factor. Has been applying wound dressings without any significantimprovement. He reports increased drainage. Denies significant pain. No chills, fever or feeling of unwell. Progress of Wound: No new concerns at this time. He states that he has been doing dressing changes as recommended. Objective Data Objective Data Vital Signs: Vital Signs Temp Pulse Resp BP Pulse Ox 96.9 F L 90 18 147/84 H 99 08/30/23 07:59 08/30/23 07:59 08/30/23 07:59 08/30/23 07:59 08/29/23 00:49 Body Mass Index (BMI) 31.4 Charges/Coding Procedures Integumentary 111xxx-113xx: 97488 Lakeisha subq tissue 20 sq cm/< Debridement Note Debridement Note Wound debrided: Left medial ankle Type of Debridement: Excisional debridement Anesthesia Used: 5% Lidocaine Gel Depth: Down to and including healthy tissue and in the subcutaneous layer Percentage of wound debrided: 100 Instrument Used: 5mm curette Tissue Removed: Slough and devitalized tissue Severity: Fat Layer Exposed Bleeding Controlled with: Pressure Patient tolerated procedure: Patient tolerated procedure well Post-Debridement Measurements and Additional Note: Post-Debridement Measurements/Treatment - Nurse 1 - General Ulcer Assessment Start: 08/30/23 07:58 Freq: Status: Active Protocol: LOWEXT Activity Type Activity Date Activity User E-sign Co-sign Detail Recorded Client Recorded Date Recorded By Document 08/30/23 07:59 Laptop 08/30/23 08:05 08/30/23 07:59 - Today's Visit Information Type of service Follow-up Visit (Physician/SUPERVISOR CHANNEL PROCESS ) Arrival Mode Ambulatory Patient Identification Verified (Name & Yes ) Patient Requires Transmission-Based No Precautions Height and Weight Body Mass Index (BMI) 31.4 BMI Classification Obese Vital Signs Temperature (97.8 F-99.1 F) 96.9 F L Temperature Source Temporal Pulse Rate (60-100) 90 Pulse Location Monitor Respiratory Rate (12-18) 18 Respiratory rate source Observation Blood Pressure (90/60-120/80) 147/84 H Blood Pressure Mean (mm Hg) 105 Source Monitor History Since Last Visit- (Skip if this is Patient's initial visit) Have you changed medications since your No last visit? Any new allergies or adverse reactions No Had a fall/change in ADL's that may No increase risk of falls Signs or symptoms of abuse and/or No neglect since last visit Have you been in the hospital since your No last visit? Has dressing in place as prescribed Yes Has compression in place as prescribed Yes Has offloadiing in place as prescribed N/A Experienced any changes in pain level or No management Pain Scale: 0-10 Numeric Is Patient Pain Free? Yes - Nurse 1 - General Ulcer Measurement Start: 08/30/23 07:58 Freq: Status: Active Protocol: Activity Type Activity Date Activity User E-sign Co-sign Detail Recorded Client Recorded Date Recorded By Document 08/30/23 07:59 Laptop 08/30/23 08:05 08/30/23 07:59 Wound Center Nurse 1 #17- L DORSAL FOOT -Current Size (cm) - Length 1.2 -Current Size (cm) - Width 0.4 -Current Size (cm) - Depth 0.1 -Total Square Cm 0.48 -Photo Taken Yes -Exudate Amt Medium -Exudate Type Serosanguineous -Wound Margin Thickened -Granulation Amt Medium (34-66%) -Granulation Quality [place],Red -Necrosis Amt Medium (34-66%) -Necrotic Tissue Type Adherent Slough -Structure Exposed N/A -Texture (Ara-wound Skin Appearance) Scarring -Moisture (Ara-wound Skin Appearance) Dry/Scaly -Color (Ara-wound Skin Appearance) Hemosiderin Staining -Temperature (Ara-wound Skin No Abnormality Appearance) (Pt Warm) -Tenderness on Palpation (Ara-wound No Skin Appearance) -Ulcer Cleansing Soap and Water -Foul Odor after Cleansing No -Anesthetic Used 5% Lidocaine Gel #10 Left Medial Ankle -Current Size (cm) - Length 3.6 -Current Size (cm) - Width 1.7 -Current Size (cm) - Depth 0.1 -Total Square Cm 6.12 -Photo Taken Yes -Exudate Amt Medium -Exudate Type Serosanguineous -Wound Margin Thickened -Granulation Amt Medium (34-66%) -Granulation Quality [place],Red -Necrosis Amt Medium (34-66%) -Necrotic Tissue Type Adherent Slough -Structure Exposed N/A -Texture (Ara-wound Skin Appearance) Scarring -Moisture (Ara-wound Skin Appearance) Dry/Scaly -Color (Ara-wound Skin Appearance) Hemosiderin Staining -Tenderness on Palpation (Ara-wound No Skin Appearance) -Ulcer Cleansing Soap and Water -Foul Odor after Cleansing No -Anesthetic Used 5% Lidocaine Gel Left Calf (cm) 35.8 Left Ankle (cm) 23.3 WC - Nurse 2 - General Ulcer CM Notes Start: 08/30/23 07:58 Freq: Status: Active Protocol: Activity Type Activity Date Activity User E-sign Co-sign Detail Recorded Client Recorded Date Recorded By Document 08/30/23 08:23 GM Desktop 08/30/23 08:29 GM 08/30/23 08:23 Wound Center Nurse 2 #17- L DORSAL FOOT -Time 08:24 -Correct Patient Yes -Correct Side, Site, Position Yes -Correct Procedure Yes -Procedure Performed Yes -Type of Procedure Debridement -Clinical Debridement Subcutaneous -Tissue Removed Subcutaneous -Post Debridement (cm) - Length 1.7 -Post Debridement (cm) - Width 0.3 -Post Debridement (cm) - Depth 0.1 -Total Square (Post) (cm) 0.51 -Area of Debridement (cm) - Length 1.7 -Area of Debridement (cm) - Width 0.3 -Total Square (Area) (cm) 0.51 -Tunneling No -Undermining/Tunneling No -Circular Undermining No -Wound/Ulcer Outcome Not Healed -Ulcer Cleansing Rinsed/ Irrigated with Saline -Foul Odor after Cleansing No -Bioengineered Tissue No -Bleeding Controlled with Pressure -Treatment Response Procedure Tolerated Well -Debridement - Subq, 1st 20sq cm No #10 Left Medial Ankle -Time 08:24 -Correct Patient Yes -Correct Side, Site, Position Yes -Correct Procedure Yes -Procedure Performed Yes -Type of Procedure Debridement -Clinical Debridement Subcutaneous -Tissue Removed Subcutaneous -Post Debridement (cm) - Length 3.8 -Post Debridement (cm) - Width 2.3 -Post Debridement (cm) - Depth 0.2 -Total Square (Post) (cm) 8.74 -Area of Debridement (cm) - Length 3.8 -Area of Debridement (cm) - Width 2.3 -Total Square (Area) (cm) 8.74 -Tunneling No -Undermining/Tunneling No -Circular Undermining No -Wound/Ulcer Outcome Not Healed -Ulcer Cleansing Rinsed/ Irrigated with Saline -Foul Odor after Cleansing No -Bioengineered Tissue No -Bleeding Controlled with Pressure -Treatment Response Procedure Tolerated Well -Debridement - Subq, 1st 20sq cm Yes Pain Scale: 0-10 Numeric Is Patient Pain Free? Yes - Nurse 3 - General Ulcer D/C NN Start: 08/30/23 07:58 Freq: Status: Active Protocol: Activity Type Activity Date Activity User E-sign Co-sign Detail Recorded Client Recorded Date Recorded By Document 08/30/23 08:33 KW Desktop 08/30/23 08:34 KW 08/30/23 08:33 Wound Care Center Nurse 3 #17- L DORSAL FOOT -Primary Dressing Covered/Secured with Dry Gauze, Secured with Tape #10 Left Medial Ankle -Primary Dressing Covered/Secured with Dry Gauze, Secured with Tape Pain Scale: 0-10 Numeric Is Patient Pain Free? Yes WC - Visit Discharge Discharge Condition Stable Ambulatory Status Ambulatory Transportation Private Auto Medication Reconcilliation completed & No provided to patient/care provider Clinical Summary of Care Provided Yes Additional Wound Wound debrided: Left dorsal foot Type of Debridement: Excisional debridement Anesthesia Used: 5% Lidocaine Gel Depth: Down to and including healthy tissue and in the subcutaneous layer Percentage of wound debrided: 100 Instrument Used: 3mm curette Tissue Removed: Slough and devitalized tissue Severity: Fat Layer Exposed Amount of bleeding with debridement: Mild Bleeding Controlled with: Pressure Patient tolerated procedure: Patient tolerated procedure well Assessment/Plan Assessment/Plan (1) Ulcer of left lower extremity with fat layer exposed: CODE(S): L97.922 - Non-pressure chronic ulcer of unspecified part of left lower leg with fat layer exposed (2) PVD (peripheral vascular disease): CODE(S): I73.9 - Peripheral vascular disease, unspecified (3) Chronic venous insufficiency: CODE(S): I87.2 - Venous insufficiency (chronic) (peripheral) (4) Delayed wound healing: CODE(S): T14.8XXD - Other injury of unspecified body region, subsequent encounter PLAN: Plan Debridement done as documented above, procedure was well-tolerated. Some improvement noted. Continue Aquacel, adaptic and care max to both ulcers. Continue mupirocin ointment as well. Continue use of compression stockings, legelevation and exercise. Increased protein intake, protein supplements, zinc andvitamin C also recommended. Continue multivitamins. His questions were answered and he was advised to call with any further questions or concerns. Follow-up in 2 weeks. This note was generated with RadioFrameation software. It may contain incorrectwords, spelling, and punctuation that were not noted in checking the note beforesigning. 08/30/2359 <Electronically signed by Alice Amaya MD> Cosigner Signature (if applicable): CC: ~ Signed [facility] Work Phone: 1(424) 507-274707-27-2023 Progress note Author Alice Amaya [facility] May 24, 2023 9:06am Note Date/Time May 24, 2023 9:02 am [facility] [address] [place] [id number] Progress Note - Wound Care 05/24/23 0901 MR#: [id number] Acct: [id number] Name: RUBEN ALLEN Rep #:[id number] : 1965 57 From: Alice dickerson MD PCP: Dr. George Frausto MD Status :REG RCR Location: History of Present Illness Date of Service: 05/24/23 Chief Complaint: ulcers to the left lower leg History of Wound: This is a 54-year-old male presents to wound healing center with a long-standing history of chronic venous insufficiency, chronic venous hypertension, lower extremity edema, lower extremity pain, and chronic left lower extremity ulcer. 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 He is currently wearing graduated compression stockings which are documented to be 20-30 mmHg compression and these are thigh high. He reports great compliance with use. Heis also had previous arterial work-up with no intervention recommended by letter, his vascular surgeon. He denies taking nutritional supplementation. [facility] and had a biopsy of the ulcer site. He also was previously treated by infectious disease for various contaminations and infections. He is not antibiotics at this time nor does he have any redness or odor coming from the wound. He denies fever, chill, nausea, vomiting, loss of appetite. 05/18/22: Mr. Allen presents with a new right lower extremity ulceration. He states that this has been present for months and he has been trying to manage itat home without any significant improvement. Opened up months ago, no known precipitating factor. Has been applying wound dressings without any significantimprovement. He reports increased drainage. Denies significant pain. No chills, fever or feeling of unwell. Progress of Wound: No new concerns at this time. Some improvement noted. However has some dryness, he admits that he has not been applying Adaptic. Objective Data Objective Data Vital Signs: Vital Signs Temp Pulse Resp BP Pulse Ox O2 Del Method 97.8 F 107 H 16 170/81 H 99 Room Air 05/24/23 08:10 05/24/23 08:10 05/24/23 08:10 05/24/23 08:10 04/28/23 01:05 05/24/23 08:10 Oxygen Delivery Method Room Air Body Mass Index (BMI) 31.4 Charges/Coding Procedures Integumentary 111xxx-113xx: 95613 Lakeisha subq tissue 20 sq cm/< Physical Exam Const alert, oriented x3 and no apparent distress General Appearance: cooperative and comfortable HEENT normocephalic Head and Scalp: normal to inspection, normocephalic and atraumatic Eyes EOMs intact bilaterally Neck full ROM and supple General: normal visual inspection Resp normal respiratory effort Effort and Inspection: able to speak in complete sentences Extremity normal to inspection General Extremity: edema Skin Wounds: wounds noted Neuro oriented x3 and CN's II-XII intact bilaterally Psych mental status grossly normal Appearance: grossly normal Debridement Note Debridement Note Wound debrided: Left medial ankle Type of Debridement: Excisional debridement Anesthesia Used: 5% Lidocaine Gel Depth: Down to and including healthy tissue and in the subcutaneous layer Percentage of wound debrided: 100 Instrument Used: 5mm curette Tissue Removed: Slough and devitalized tissue Severity: Fat Layer Exposed Amount of bleeding with debridement: Mild Bleeding Controlled with: Pressure Patient tolerated procedure: Patient tolerated procedure well Post-Debridement Measurements and Additional Note: Post-Debridement Measurements/Treatment - Nurse 1 - General Ulcer Assessment Start: 05/10/23 08:06 Freq: Status: Active Protocol: SHANTA Activity Type Activity Date Activity User E-sign Co-sign Detail Recorded Client Recorded Date Recorded By Document 05/10/23 08:06 [id number] 05/10/23 08:16 KW Document 05/24/23 08:10 [facility] [id number] 05/24/23 08:15 [facility] 05/10/23 05/24/23 08:06 08:10 - Today's Visit Information Type of service Follow-up Visit Follow-up Visit (Physician/SUPERVISOR CHANNEL PROCESS (Physician/SUPERVISOR CHANNEL PROCESS ) ) Arrival Mode Ambulatory Ambulatory Transfer Assistance None Patient Identification Verified (Name & Yes Yes ) Patient Requires Transmission-Based No No Precautions Height and Weight Body Mass Index (BMI) 31.4 31.4 BMI Classification Obese Obese Vital Signs Temperature (97.8 F-99.1 F) 96.8 F L 97.8 F Temperature Source Temporal Temporal Pulse Rate (60-100) 89 107 H Pulse Location Monitor Monitor Respiratory Rate (12-18) 16 16 Respiratory rate source Observation Observation Oxygen Delivery Method Room Air Room Air Blood Pressure (90/60-120/80) 148/89 H 170/81 H Blood Pressure Mean (mm Hg) 108 110 Source Monitor Monitor Position Sitting Sitting Blood Pressure Location Right Arm Right Arm History Since Last Visit- (Skip if this is Patient's initial visit) Have you changed medications since your No No last visit? Any new allergies or adverse reactions No No Had a fall/change in ADL's that may No No increase risk of falls Signs or symptoms of abuse and/or No No neglect since last visit Have you been in the hospital since your No No last visit? Has dressing in place as prescribed Yes Yes Has compression in place as prescribed No Yes Has offloadiing in place as prescribed No N/A Experienced any changes in pain level or No No management Left Footwear Regular Shoe Regular Shoe Right Footwear Regular Shoe Regular Shoe Pain Scale: 0-10 Numeric Is Patient Pain Free? Yes Yes WC - Nurse 1 - General Ulcer Measurement Start: 05/10/23 08:06 Freq: Status: Active Protocol: Activity Type Activity Date Activity User E-sign Co-sign Detail Recorded Client Recorded Date Recorded By Document 05/10/23 08:06 KW [id number] 05/10/23 08:16 KW Document 05/24/23 08:10 BM [id number] 05/24/23 08:15 BMF 05/10/23 05/24/23 08:06 08:10 Wound Center Nurse 1 #10 Left Medial Ankle -Combined with other wound No No -Current Size (cm) - Length 4.3 3.6 -Current Size (cm) - Width 3.9 1.7 -Current Size (cm) - Depth 0.1 0.1 -Total Square Cm 16.77 6.12 -Date of Last Picture (Recall this 05/10/23 05/24/23 field) -Photo Taken Yes Yes -Epithelialization Large 67-100% Small 1-33% -Tunneling No No -Undermining/Tunneling No No -Circular Undermining No No -Exudate Amt Small Medium -Exudate Type Serosanguineous Serosanguineous -Wound Margin Distinct, Distinct, Outline Outline Attached Attached -Granulation Amt Medium (34-66%) Medium (34-66%) -Granulation Quality Red Red -Slough/Fibrin Yes -Necrosis Amt Small (1-33%) Medium (34-66%) -Necrotic Tissue Type Adherent Slough Adherent Slough -Texture (Ara-wound Skin Appearance) Assessed Assessed, Scarring -Moisture (Ara-wound Skin Appearance) Assessed,Dry/ Assessed,Dry/ Scaly Scaly -Color (Ara-wound Skin Appearance) Assessed, Assessed Erythema -Temperature (Ara-wound Skin No Abnormality No Abnormality Appearance) (Pt Warm) (Pt Warm) -Tenderness on Palpation (Ara-wound No No Skin Appearance) -Ulcer Cleansing Soap and Water Rinsed/ Irrigated with Saline -Foul Odor after Cleansing No No -Anesthetic Used 5% Lidocaine 5% Lidocaine Gel Gel Left Calf (cm) 35.7 Left Ankle (cm) 22.5 WC - Nurse 2 - General Ulcer CM Notes Start: 05/10/23 08:06 Freq: Status: Active Protocol: Activity Type Activity Date Activity User E-sign Co-sign Detail Recorded Client Recorded Date Recorded By Document 05/10/23 08:32 MW [id number] 05/10/23 08:33 MW Document 05/24/23 08:23 MW [id number] 05/24/23 08:27 MW 05/10/23 05/24/23 08:32 08:23 Wound Center Nurse 2 #10 Left Medial Ankle -Time 08:32 08:24 -Correct Patient Yes Yes -Correct Side, Site, Position Yes Yes -Correct Procedure Yes Yes -Procedure Performed Yes Yes -Type of Procedure Debridement Debridement -Clinical Debridement Subcutaneous Subcutaneous -Tissue Removed Subcutaneous Subcutaneous -Post Debridement (cm) - Length 4.0 3.8 -Post Debridement (cm) - Width 3.0 2.4 -Post Debridement (cm) - Depth 0.2 0.2 -Total Square (Post) (cm) 12.00 9.12 -Area of Debridement (cm) - Length 4.0 3.8 -Area of Debridement (cm) - Width 3.0 2.4 -Total Square (Area) (cm) 12.00 9.12 -Tunneling No No -Undermining/Tunneling No No -Circular Undermining No No -Wound/Ulcer Outcome Not Healed Not Healed -Ulcer Cleansing Rinsed/ Rinsed/ Irrigated with Irrigated with Saline Saline -Foul Odor after Cleansing No No -Bioengineered Tissue No No -Bleeding Controlled with Pressure Pressure -Treatment Response Procedure Procedure Tolerated Well Tolerated Well -Offloading No No -Debridement - Subq, 1st 20sq cm Yes Yes Pain Scale: 0-10 Numeric Is Patient Pain Free? Yes Yes - Nurse 3 - General Ulcer D/C NN Start: 05/10/23 08:06 Freq: Status: Active Protocol: Activity Type Activity Date Activity User E-sign Co-sign Detail Recorded Client Recorded Date Recorded By Document 05/10/23 08:41 DL [id number] 05/10/23 08:42 DL Document 05/24/23 08:31 [facility] [id number] 05/24/23 08:31 BM 05/10/23 05/24/23 08:41 08:31 Wound Care Center Nurse 3 #10 Left Medial Ankle -Ulcer Cleansing Rinsed/ Irrigated with Saline -Foul Odor after Cleansing No -Other Dressing ABD -Primary Dressing Covered/Secured with Dry Gauze, Secured with Tape -Other Covering abd per dl operator bearer systems. pt going home to shower after work last night Left -Other pt applies own compression stocking Treatment Response Procedure Tolerated Well Pain Scale: 0-10 Numeric Is Patient Pain Free? Yes Yes WC - Visit Discharge Discharge Condition Stable Stable Ambulatory Status Ambulatory Ambulatory Transportation Private Auto Private Auto Notes: ABD only this morning, pt will shower and dress wound at home today. Assessment/Plan Assessment/Plan (1) Ulcer of left lower extremity with fat layer exposed: CODE(S): L97.922 - Non-pressure chronic ulcer of unspecified part of left lower leg with fat layer exposed (2) PVD (peripheral vascular disease): CODE(S): I73.9 - Peripheral vascular disease, unspecified (3) Chronic venous insufficiency: CODE(S): I87.2 - Venous insufficiency (chronic) (peripheral) (4) Delayed wound healing: CODE(S): T14.8XXD - Other injury of unspecified body region, subsequent encounter PLAN: Plan Debridement done as documented above, procedure was well-tolerated. Some improvement noted. Good granulation and healthy looking tissue. Continue Aquacel, adaptic and care max to left medial ankle ulcer. Continue mupirocin ointment as well. Continue use of compression stockings, leg elevation and exercise. Increased protein intake, protein supplements, zinc and vitamin C also recommended. Continue multivitamins. His questions were answered and he was advised to call with any further questions or concerns. Follow-up in 2 weeks. This note was generated with IntelliDOT dictation software. It may contain incorrectwords, spelling, and punctuation that were not noted in checking the note beforesigning. 05/24/23 09 <Electronically signed by Alice Amaya MD> Cosigner Signature (if applicable): CC: ~ Signed [facility] Work Phone: [phone]) 797-556807-13-2023 Progress note Author Alice Amaya [facility] May 10, 2023 9:37am Note Date/Time May 10, 2023 9:31 am [facility] [address] [place] [address] Progress Note - Wound Care 05/10/23 0929 MR#: [id number] Acct: [id number] Name: RUBEN ALLEN Jr. Rep #:[id number] 01 : 1965 57 From: Alice dickerson MD PCP: Dr. George Frausto MD Status :REG RCR Location: History of Present Illness Date of Service: 05/10/23 Chief Complaint: ulcers to the left lower leg History of Wound: This is a 54-year-old male presents to wound healing center with a long-standing history of chronic venous insufficiency, chronic venous hypertension, lower extremity edema, lower extremity pain, and chronic left lower extremity ulcer. 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 He is currently wearing graduated compression stockings which are documented to be 20-30 mmHg compression and these are thigh high. He reports great compliance with use. Heis also had previous arterial work-up with no intervention recommended by letter, his vascular surgeon. He denies taking nutritional supplementation. [facility] and had a biopsy of the ulcer site. He also was previously treated by infectious disease for various contaminations and infections. He is not antibiotics at this time nor does he have any redness or odor coming from the wound. He denies fever, chill, nausea, vomiting, loss of appetite. 05/18/22: Mr. Allen presents with a new right lower extremity ulceration. He states that this has been present for months and he has been trying to manage itat home without any significant improvement. Opened up months ago, no known precipitating factor. Has been applying wound dressings without any significantimprovement. He reports increased drainage. Denies significant pain. No chills, fever or feeling of unwell. Progress of Wound: No new concerns at this time. Has not been here in 4 weeks due to scheduling conflicts. Ulcer has remained stable. Objective Data Objective Data Vital Signs: Vital Signs Temp Pulse Resp BP Pulse Ox O2 Del Method 96.8 F L 89 16 148/89 H 99 Room Air 05/10/23 08:06 05/10/23 08:06 05/10/23 08:06 05/10/23 08:06 04/28/23 01:05 05/10/23 08:06 Oxygen Delivery Method Room Air Body Mass Index (BMI) 31.4 Charges/Coding Procedures Integumentary 111xxx-113xx: 80491 Lakeisha subq tissue 20 sq cm/< Physical Exam Const alert, oriented x3 and no apparent distress General Appearance: cooperative and comfortable HEENT normocephalic Head and Scalp: normal to inspection, normocephalic and atraumatic Eyes EOMs intact bilaterally Neck full ROM and supple General: normal visual inspection Resp normal respiratory effort Effort and Inspection: able to speak in complete sentences Extremity normal to inspection General Extremity: edema Skin Wounds: wounds noted Neuro oriented x3 and CN's II-XII intact bilaterally Psych mental status grossly normal Appearance: grossly normal Debridement Note Debridement Note Wound debrided: Left medial ankle Type of Debridement: Excisional debridement Anesthesia Used: 5% Lidocaine Gel Depth: Down to and including healthy tissue and in the subcutaneous layer Percentage of wound debrided: 100 Instrument Used: 5mm curette Tissue Removed: Slough and devitalized tissue Severity: Fat Layer Exposed Amount of bleeding with debridement: Mild Bleeding Controlled with: Pressure Patient tolerated procedure: Patient tolerated procedure well Post-Debridement Measurements and Additional Note: Post-Debridement Measurements/Treatment - Nurse 1 - General Ulcer Assessment Start: 05/10/23 08:06 Freq: Status: Active Protocol: KIMBERLY.MEHDI Activity Type Activity Date Activity User E-sign Co-sign Detail Recorded Client Recorded Date Recorded By Document 05/10/23 08:06 KW [id number] 05/10/23 08:16 KW 05/10/23 08:06 - Today's Visit Information Type of service Follow-up Visit (Physician/SUPERVISOR CHANNEL PROCESS ) Arrival Mode Ambulatory Patient Identification Verified (Name & Yes ) Patient Requires Transmission-Based No Precautions Height and Weight Body Mass Index (BMI) 31.4 BMI Classification Obese Vital Signs Temperature (97.8 F-99.1 F) 96.8 F L Temperature Source Temporal Pulse Rate (60-100) 89 Pulse Location Monitor Respiratory Rate (12-18) 16 Respiratory rate source Observation Oxygen Delivery Method Room Air Blood Pressure (90/60-120/80) 148/89 H Blood Pressure Mean (mm Hg) 108 Source Monitor Position Sitting Blood Pressure Location Right Arm History Since Last Visit- (Skip if this is Patient's initial visit) Have you changed medications since your No last visit? Any new allergies or adverse reactions No Had a fall/change in ADL's that may No increase risk of falls Signs or symptoms of abuse and/or No neglect since last visit Have you been in the hospital since your No last visit? Has dressing in place as prescribed Yes Has compression in place as prescribed No Has offloadiing in place as prescribed No Experienced any changes in pain level or No management Left Footwear Regular Shoe Right Footwear Regular Shoe Pain Scale: 0-10 Numeric Is Patient Pain Free? Yes WC - Nurse 1 - General Ulcer Measurement Start: 05/10/23 08:06 Freq: Status: Active Protocol: Activity Type Activity Date Activity User E-sign Co-sign Detail Recorded Client Recorded Date Recorded By Document 05/10/23 08:06 KW [id number] 05/10/23 08:16 KW 05/10/23 08:06 Wound Center Nurse 1 #10 Left Medial Ankle -Combined with other wound No -Current Size (cm) - Length 4.3 -Current Size (cm) - Width 3.9 -Current Size (cm) - Depth 0.1 -Total Square Cm 16.77 -Date of Last Picture (Recall this 05/10/23 field) -Photo Taken Yes -Epithelialization Large 67-100% -Tunneling No -Undermining/Tunneling No -Circular Undermining No -Exudate Amt Small -Exudate Type Serosanguineous -Wound Margin Distinct, Outline Attached -Granulation Amt Medium (34-66%) -Granulation Quality Red -Necrosis Amt Small (1-33%) -Necrotic Tissue Type Adherent Slough -Texture (Ara-wound Skin Appearance) Assessed -Moisture (Ara-wound Skin Appearance) Assessed,Dry/ Scaly -Color (Ara-wound Skin Appearance) Assessed, Erythema -Temperature (Ara-wound Skin No Abnormality Appearance) (Pt Warm) -Tenderness on Palpation (Ara-wound No Skin Appearance) -Ulcer Cleansing Soap and Water -Foul Odor after Cleansing No -Anesthetic Used 5% Lidocaine Gel - Nurse 2 - General Ulcer CM Notes Start: 05/10/23 08:06 Freq: Status: Active Protocol: Activity Type Activity Date Activity User E-sign Co-sign Detail Recorded Client Recorded Date Recorded By Document 05/10/23 08:32 MW [id number] 05/10/23 08:33 MW 05/10/23 08:32 Wound Center Nurse 2 -Time 08:32 -Correct Patient Yes -Correct Side, Site, Position Yes -Correct Procedure Yes -Procedure Performed Yes -Type of Procedure Debridement -Clinical Debridement Subcutaneous -Tissue Removed Subcutaneous -Post Debridement (cm) - Length 4.0 -Post Debridement (cm) - Width 3.0 -Post Debridement (cm) - Depth 0.2 -Total Square (Post) (cm) 12.00 -Area of Debridement (cm) - Length 4.0 -Area of Debridement (cm) - Width 3.0 -Total Square (Area) (cm) 12.00 -Tunneling No -Undermining/Tunneling No -Circular Undermining No -Wound/Ulcer Outcome Not Healed -Ulcer Cleansing Rinsed/ Irrigated with Saline -Foul Odor after Cleansing No -Bioengineered Tissue No -Bleeding Controlled with Pressure -Treatment Response Procedure Tolerated Well -Offloading No -Debridement - Subq, 1st 20sq cm Yes Pain Scale: 0-10 Numeric Is Patient Pain Free? Yes - Nurse 3 - General Ulcer D/C NN Start: 05/10/23 08:06 Freq: Status: Active Protocol: Activity Type Activity Date Activity User E-sign Co-sign Detail Recorded Client Recorded Date Recorded By Document 05/10/23 08:41 DL [id number] 05/10/23 08:42 DL 05/10/23 08:41 Wound Care Center Nurse 3 #10 Left Medial Ankle -Ulcer Cleansing Rinsed/ Irrigated with Saline -Foul Odor after Cleansing No -Other Dressing ABD -Primary Dressing Covered/Secured with Dry Gauze, Secured with Tape Treatment Response Procedure Tolerated Well Pain Scale: 0-10 Numeric Is Patient Pain Free? Yes WC - Visit Discharge Discharge Condition Stable Ambulatory Status Ambulatory Transportation Private Auto Notes: ABD only this morning, pt will shower and dress wound at home today. Assessment/Plan Assessment/Plan (1) Ulcer of left lower extremity with fat layer exposed: CODE(S): L97.922 - Non-pressure chronic ulcer of unspecified part of left lower leg with fat layer exposed (2) PVD (peripheral vascular disease): CODE(S): I73.9 - Peripheral vascular disease, unspecified (3) Chronic venous insufficiency: CODE(S): I87.2 - Venous insufficiency (chronic) (peripheral) (4) Delayed wound healing: CODE(S): T14.8XXD - Other injury of unspecified body region, subsequent encounter PLAN: Plan Debridement done as documented above, procedure was well-tolerated. Stable ulcer. Good granulation and healthy looking tissue. Continue Aquacel, adaptic and care max to left medial ankle ulcer. Continue mupirocin ointment as well. Continue use of compression stockings, leg elevation and exercise. Increased protein intake, protein supplements, zinc and vitamin C also recommended. Continue multivitamins. His questions were answered and he was advised to call with any further questions or concerns. Follow-up in 2 weeks. This note was generated with RadioFrameation software. It may contain incorrectwords, spelling, and punctuation that were not noted in checking the note beforesigning. 05/10/23 0937 <Electronically signed by Alice Amaya MD> Cosigner Signature (if applicable): CC: ~ Signed [facility] Work Phone: 1(585) 545-884907-07-2023 Miscellaneous Notes* Telephone Encounter - Arvind Frausto MD - 05/04/2023 9:29 AM EDT Updated rx sent * Telephone Encounter - Araceli Davidson LPN - 05/04/2023 9:17 AM EDT [facility] pharmacy called requesting clarifications on the script for fluconazole. [facility]2023 Progress note Author Alice Amaya [facility] April 12, 2023 12:57pm Note Date/Time April 12, 2023 9:17 am [facility] [address] [place] [address] Progress Note - Wound Care 04/12/23913 MR#: [id number] Acct: [id number] Name: RUBEN ALLEN Jr. Rep #:[id number] : 1965 57 From: Alice dickerson MD PCP: Dr. George Frausto MD Status :REG RCR Location: History of Present Illness Date of Service: 04/12/23 Chief Complaint: ulcers to the left lower leg History of Wound: This is a 54-year-old male presents to wound healing center with a long-standing history of chronic venous insufficiency, chronic venous hypertension, lower extremity edema, lower extremity pain, and chronic left lower extremity ulcer. 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 He is currently wearing graduated compression stockings which are documented to be 20-30 mmHg compression and these are thigh high. He reports great compliance with use. Heis also had previous arterial work-up with no intervention recommended by letter, his vascular surgeon. He denies taking nutritional supplementation. [facility] and had a biopsy of the ulcer site. He also was previously treated by infectious disease for various contaminations and infections. He is not antibiotics at this time nor does he have any redness or odor coming from the wound. He denies fever, chill, nausea, vomiting, loss of appetite. 05/18/22: Mr. Allen presents with a new right lower extremity ulceration. He states that this has been present for months and he has been trying to manage itat home without any significant improvement. Opened up months ago, no known precipitating factor. Has been applying wound dressings without any significantimprovement. He reports increased drainage. Denies significant pain. No chills, fever or feeling of unwell. Progress of Wound: Stable ulcer, no new concerns at this time. Objective Data Objective Data Vital Signs: Vital Signs Temp Pulse Resp BP Pulse Ox 95.4 F L 87 18 152/78 H 99 06/15/23 08:34 04/12/23 08:34 03/29/23 08:08 04/12/23 08:34 03/29/23 00:27 Body Mass Index (BMI) 31.4 Charges/Coding Procedures Integumentary 111xxx-113xx: 53333 Lakeisha subq tissue 20 sq cm/< Physical Exam Const alert, oriented x3 and no apparent distress General Appearance: cooperative and comfortable HEENT normocephalic Head and Scalp: normal to inspection, normocephalic and atraumatic Eyes EOMs intact bilaterally Neck full ROM and supple General: normal visual inspection Resp normal respiratory effort Effort and Inspection: able to speak in complete sentences Extremity normal to inspection General Extremity: edema Skin Wounds: wounds noted Neuro oriented x3 and CN's II-XII intact bilaterally Psych mental status grossly normal Appearance: grossly normal Debridement Note Debridement Note Wound debrided: Left medial ankle Type of Debridement: Excisional debridement Anesthesia Used: 5% Lidocaine Gel Depth: Down to and including healthy tissue and in the subcutaneous layer Percentage of wound debrided: 100 Instrument Used: 5mm curette Tissue Removed: Slough and devitalized tissue Severity: Fat Layer Exposed Amount of bleeding with debridement: Mild Bleeding Controlled with: Pressure Patient tolerated procedure: Patient tolerated procedure well Post-Debridement Measurements and Additional Note: Post-Debridement Measurements/Treatment - Nurse 1 - General Ulcer Assessment Start: 03/29/23 08:07 Freq: Status: Active Protocol: KIMBERLY.LOWBRIDGET Activity Type Activity Date Activity User E-sign Co-sign Detail Recorded Client Recorded Date Recorded By Document 03/29/23 08:08 DL [id number] 03/29/23 08:12 DL Document 04/12/23 08:34 [place] [id number] 04/12/23 08:35 AK 03/29/23 04/12/23 08:08 08:34 WC - Today's Visit Information Type of service Follow-up Visit Follow-up Visit (Physician/SUPERVISOR CHANNEL PROCESS (Physician/SUPERVISOR CHANNEL PROCESS ) ) Arrival Mode Ambulatory Ambulatory Transfer Assistance None Patient Identification Verified (Name & Yes Yes ) Patient Requires Transmission-Based No No Precautions Height and Weight Body Mass Index (BMI) 31.4 31.4 BMI Classification Obese Obese Vital Signs Temperature (97.8 F-99.1 F) 98.2 F 95.4 F L Temperature Source Temporal Temporal Pulse Rate (60-100) 89 87 Pulse Location Monitor Monitor Respiratory Rate (12-18) 18 Respiratory rate source Observation Blood Pressure (90/60-120/80) 166/88 H 152/78 H Blood Pressure Mean (mm Hg) 114 102 Source Monitor Monitor History Since Last Visit- (Skip if this is Patient's initial visit) Have you changed medications since your No No last visit? Any new allergies or adverse reactions No No Had a fall/change in ADL's that may No No increase risk of falls Signs or symptoms of abuse and/or No No neglect since last visit Have you been in the hospital since your No No last visit? Has dressing in place as prescribed Yes Yes Has compression in place as prescribed Yes Yes Has offloadiing in place as prescribed N/A Experienced any changes in pain level or No No management Left Footwear Regular Shoe Right Footwear Regular Shoe Pain Scale: 0-10 Numeric Is Patient Pain Free? Yes Yes WC - Nurse 1 - General Ulcer Measurement Start: 03/29/23 08:07 Freq: Status: Active Protocol: Activity Type Activity Date Activity User E-sign Co-sign Detail Recorded Client Recorded Date Recorded By Document 03/29/23 08:08 DL [id number] 03/29/23 08:12 DL Document 04/12/23 08:34 AK [id number] 04/12/23 08:35 AK 03/29/23 04/12/23 08:08 08:34 Wound Center Nurse 1 #10 Left Medial Ankle -Combined with other wound No -Current Size (cm) - Length 4 3.8 -Current Size (cm) - Width 2.5 2.5 -Current Size (cm) - Depth 0.2 0.1 -Total Square Cm 10.0 9.50 -Photo Taken No No -Tunneling No -Undermining/Tunneling No -Circular Undermining No -Change in Wound Grade/Stage No -Exudate Amt Medium Medium -Exudate Type Serosanguineous Serosanguineous -Wound Margin Thickened Distinct, Outline Attached -Granulation Amt Small (1-33%) Small (1-33%) -Granulation Quality [place] Tetonia -Slough/Fibrin Yes -Necrosis Amt Large (67-100%) Large (67-100%) -Necrotic Tissue Type Adherent Slough -Structure Exposed N/A N/A -Texture (Ara-wound Skin Appearance) Scarring Assessed, Scarring -Moisture (Ara-wound Skin Appearance) Dry/Scaly No Abnormality, Assessed -Color (Ara-wound Skin Appearance) Hemosiderin No Abnormality, Staining Assessed -Temperature (Ara-wound Skin No Abnormality No Abnormality Appearance) (Pt Warm) (Pt Warm) -Tenderness on Palpation (Ara-wound No No Skin Appearance) -Ulcer Cleansing Soap and Water Rinsed/ Irrigated with Saline -Foul Odor after Cleansing No No -Anesthetic Used 5% Lidocaine 5% Lidocaine Gel Gel Left Calf (cm) 37 Left Ankle (cm) 23 WC - Nurse 2 - General Ulcer CM Notes Start: 03/29/23 08:07 Freq: Status: Active Protocol: Activity Type Activity Date Activity User E-sign Co-sign Detail Recorded Client Recorded Date Recorded By Document 03/29/23 08:27 MW [id number] 03/29/23 08:28 MW Document 04/12/23 08:23 MW Desktop 04/12/23 08:24 MW 03/29/23 04/12/23 08:27 08:23 Wound Center Nurse 2 #10 Left Medial Ankle -Time 08:27 08:23 -Correct Patient Yes Yes -Correct Side, Site, Position Yes Yes -Correct Procedure Yes Yes -Procedure Performed Yes Yes -Type of Procedure Debridement Debridement -Clinical Debridement Subcutaneous Subcutaneous -Tissue Removed Subcutaneous Subcutaneous -Post Debridement (cm) - Length 3.7 4.0 -Post Debridement (cm) - Width 2.8 2.9 -Post Debridement (cm) - Depth 0.2 0.2 -Total Square (Post) (cm) 10.36 11.60 -Area of Debridement (cm) - Length 3.7 4.0 -Area of Debridement (cm) - Width 2.8 2.9 -Total Square (Area) (cm) 10.36 11.60 -Tunneling No No -Undermining/Tunneling No No -Circular Undermining No No -Wound/Ulcer Outcome Not Healed Not Healed -Ulcer Cleansing Rinsed/ Rinsed/ Irrigated with Irrigated with Saline Saline -Foul Odor after Cleansing No No -Bioengineered Tissue No No -Bleeding Controlled with Pressure Pressure -Treatment Response Procedure Procedure Tolerated Well Tolerated Well -Offloading No No -Debridement - Subq, 1st 20sq cm Yes Yes Pain Scale: 0-10 Numeric Is Patient Pain Free? Yes Yes - Nurse 3 - General Ulcer D/C NN Start: 03/29/23 08:07 Freq: Status: Active Protocol: Activity Type Activity Date Activity User E-sign Co-sign Detail Recorded Client Recorded Date Recorded By Document 03/29/23 08:28 MW [id number] 03/29/23 08:29 MW Document 04/12/23 08:24 MW Desktop 04/12/23 08:24 MW 03/29/23 04/12/23 08:28 08:24 Wound Care Center Nurse 3 #10 Left Medial Ankle -Ulcer Cleansing Rinsed/ Not Cleansed Irrigated with Saline -Other Dressing abd -Primary Dressing Covered/Secured with Secured with Secured with Tape Tape -Other Covering ABD Treatment Response Procedure Tolerated Well Pain Scale: 0-10 Numeric Is Patient Pain Free? Yes Yes Teaching: Wound Center Dressing Your Wound -Person Taught Patient Patient -Teaching Method Discussion Discussion, Demonstration -Response to teaching Verbalize Verbalize understanding understanding WC - Visit Discharge Discharge Condition Stable Stable Ambulatory Status Ambulatory Ambulatory Transportation Private Auto Private Auto Accompanied by self self Medication Reconcilliation completed & No No provided to patient/care provider Clinical Summary of Care Provided Yes Yes Assessment/Plan Assessment/Plan (1) Ulcer of left lower extremity with fat layer exposed: CODE(S): L97.922 - Non-pressure chronic ulcer of unspecified part of left lower leg with fat layer exposed (2) PVD (peripheral vascular disease): CODE(S): I73.9 - Peripheral vascular disease, unspecified (3) Chronic venous insufficiency: CODE(S): I87.2 - Venous insufficiency (chronic) (peripheral) (4) Delayed wound healing: CODE(S): T14.8XXD - Other injury of unspecified body region, subsequent encounter PLAN: Plan Debridement done as documented above, procedure was well-tolerated. Stable and less crusting. Continue Aquacel, adaptic and care max to left medial ankle ulcer. Continue mupirocin ointment as well. Continue use of compression stockings, leg elevation and exercise. Increased protein intake, protein supplements, zinc and vitamin C also recommended. Continue multivitamins. Hisquestions were answered and he was advised to call with any further questions orconcerns. Follow-up in 3 weeks. This note was generated with RadioFrameation software. It may contain incorrectwords, spelling, and punctuation that were not noted in checking the note beforesigning. 04/12/23 1257 <Electronically signed by Alice Amaya MD> Cosigner Signature (if applicable): CC: ~ Signed [facility] Work Phone: 1(767) 928-720506-01-2023 Progress note Author Alice Amaya [facility] March 29, 2023 8:32am Note Date/Time March 29, 2023 8:32a m [facility] [address] [place] [address] Progress Note - Wound Care 03/29/23 0830 MR#: [id number] Acct: [id number] Name: RUBEN ALLEN Jr. Rep #:[id number] 03 : 1965 57 From: Alice dickreson MD PCP: Dr. George Frausto MD Status :REG R Location: History of Present Illness Date of Service: 03/29/23 Chief Complaint: ulcers to the left lower leg History of Wound: This is a 54-year-old male presents to wound healing center with a long-standing history of chronic venous insufficiency, chronic venous hypertension, lower extremity edema, lower extremity pain, and chronic left lower extremity ulcer. 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 He is currently wearing graduated compression stockings which are documented to be 20-30 mmHg compression and these are thigh high. He reports great compliance with use. Heis also had previous arterial work-up with no intervention recommended by letter, his vascular surgeon. He denies taking nutritional supplementation. [facility] and had a biopsy of the ulcer site. He also was previously treated by infectious disease for various contaminations and infections. He is not antibiotics at this time nor does he have any redness or odor coming from the wound. He denies fever, chill, nausea, vomiting, loss of appetite. 05/18/22: Mr. Allen presents with a new right lower extremity ulceration. He states that this has been present for months and he has been trying to manage itat home without any significant improvement. Opened up months ago, no known precipitating factor. Has been applying wound dressings without any significantimprovement. He reports increased drainage. Denies significant pain. No chills, fever or feeling of unwell. Progress of Wound: Stable ulcer, no new concerns at this time. Objective Data Objective Data Vital Signs: Vital Signs Temp Pulse Resp BP Pulse Ox 98.2 F 89 18 166/88 H 99 03/29/23 08:08 03/29/23 08:08 03/29/23 08:08 03/29/23 08:08 03/29/23 00:27 Body Mass Index (BMI) 31.4 Charges/Coding Procedures Integumentary 111xxx-113xx: 41519 Lakeisha subq tissue 20 sq cm/< Physical Exam Const alert, oriented x3 and no apparent distress General Appearance: cooperative and comfortable Orientation / Consciousness: awake HEENT normocephalic Head and Scalp: normal to inspection, normocephalic and atraumatic Face and Sinus: normal facial exam Eyes EOMs intact bilaterally Neck full ROM and supple General: normal visual inspection Resp normal respiratory effort Effort and Inspection: able to speak in complete sentences GI non-tender Extremity normal to inspection General Extremity: edema Skin Wounds: wounds noted Neuro oriented x3 and CN's II-XII intact bilaterally Psych mental status grossly normal Appearance: grossly normal Debridement Note Debridement Note Wound debrided: Left medial ankle Type of Debridement: Excisional debridement Anesthesia Used: 5% Lidocaine Gel Depth: Down to and including healthy tissue and in the subcutaneous layer Percentage of wound debrided: 100 Instrument Used: 5mm curette Tissue Removed: Slough and devitalized tissue Severity: Fat Layer Exposed Amount of bleeding with debridement: Mild Bleeding Controlled with: Pressure Patient tolerated procedure: Patient tolerated procedure well Post-Debridement Measurements and Additional Note: Post-Debridement Measurements/Treatment KIMBERLY - Nurse 1 - General Ulcer Assessment Start: 03/29/23 08:07 Freq: Status: Active Protocol: SHANTA Activity Type Activity Date Activity User E-sign Co-sign Detail Recorded Client Recorded Date Recorded By Document 03/29/23 08:08 TIFFANY [id number] 03/29/23 08:12 TIFFANY 03/29/23 08:08 KIMBERLY - Today's Visit Information Type of service Follow-up Visit (Physician/SUPERVISOR CHANNEL PROCESS ) Arrival Mode Ambulatory Transfer Assistance None Patient Identification Verified (Name & Yes ) Patient Requires Transmission-Based No Precautions Height and Weight Body Mass Index (BMI) 31.4 BMI Classification Obese Vital Signs Temperature (97.8 F-99.1 F) 98.2 F Temperature Source Temporal Pulse Rate (60-100) 89 Pulse Location Monitor Respiratory Rate (12-18) 18 Respiratory rate source Observation Blood Pressure (90/60-120/80) 166/88 H Blood Pressure Mean (mm Hg) 114 Source Monitor History Since Last Visit- (Skip if this is Patient's initial visit) Have you changed medications since your No last visit? Any new allergies or adverse reactions No Had a fall/change in ADL's that may No increase risk of falls Signs or symptoms of abuse and/or No neglect since last visit Have you been in the hospital since your No last visit? Has dressing in place as prescribed Yes Has compression in place as prescribed Yes Has offloadiing in place as prescribed N/A Experienced any changes in pain level or No management Pain Scale: 0-10 Numeric Is Patient Pain Free? Yes WC - Nurse 1 - General Ulcer Measurement Start: 03/29/23 08:07 Freq: Status: Active Protocol: Activity Type Activity Date Activity User E-sign Co-sign Detail Recorded Client Recorded Date Recorded By Document 03/29/23 08:08 TIFFANY [id number] 03/29/23 08:12 DL 03/29/23 08:08 Wound Center Nurse 1 #10 Left Medial Ankle -Current Size (cm) - Length 4 -Current Size (cm) - Width 2.5 -Current Size (cm) - Depth 0.2 -Total Square Cm 10.0 -Photo Taken No -Exudate Amt Medium -Exudate Type Serosanguineous -Wound Margin Thickened -Granulation Amt Small (1-33%) -Granulation Quality [place] -Necrosis Amt Large (67-100%) -Necrotic Tissue Type Adherent Slough -Structure Exposed N/A -Texture (Ara-wound Skin Appearance) Scarring -Moisture (Ara-wound Skin Appearance) Dry/Scaly -Color (Ara-wound Skin Appearance) Hemosiderin Staining -Temperature (Ara-wound Skin No Abnormality Appearance) (Pt Warm) -Tenderness on Palpation (Ara-wound No Skin Appearance) -Ulcer Cleansing Soap and Water -Foul Odor after Cleansing No -Anesthetic Used 5% Lidocaine Gel - Nurse 2 - General Ulcer CM Notes Start: 03/29/23 08:07 Freq: Status: Active Protocol: Activity Type Activity Date Activity User E-sign Co-sign Detail Recorded Client Recorded Date Recorded By Document 03/29/23 08:27 MW [id number] 03/29/23 08:28 MW 03/29/23 08:27 Wound Center Nurse 2 -Time 08:27 -Correct Patient Yes -Correct Side, Site, Position Yes -Correct Procedure Yes -Procedure Performed Yes -Type of Procedure Debridement -Clinical Debridement Subcutaneous -Tissue Removed Subcutaneous -Post Debridement (cm) - Length 3.7 -Post Debridement (cm) - Width 2.8 -Post Debridement (cm) - Depth 0.2 -Total Square (Post) (cm) 10.36 -Area of Debridement (cm) - Length 3.7 -Area of Debridement (cm) - Width 2.8 -Total Square (Area) (cm) 10.36 -Tunneling No -Undermining/Tunneling No -Circular Undermining No -Wound/Ulcer Outcome Not Healed -Ulcer Cleansing Rinsed/ Irrigated with Saline -Foul Odor after Cleansing No -Bioengineered Tissue No -Bleeding Controlled with Pressure -Treatment Response Procedure Tolerated Well -Offloading No -Debridement - Subq, 1st 20sq cm Yes Pain Scale: 0-10 Numeric Is Patient Pain Free? Yes - Nurse 3 - General Ulcer D/C NN Start: 03/29/23 08:07 Freq: Status: Active Protocol: Activity Type Activity Date Activity User E-sign Co-sign Detail Recorded Client Recorded Date Recorded By Document 03/29/23 08:28 MW [id number] 03/29/23 08:29 MW 03/29/23 08:28 Wound Care Center Nurse 3 #10 Left Medial Ankle -Ulcer Cleansing Rinsed/ Irrigated with Saline -Other Dressing abd -Primary Dressing Covered/Secured with Secured with Tape Treatment Response Procedure Tolerated Well Pain Scale: 0-10 Numeric Is Patient Pain Free? Yes Teaching: Wound Center Dressing Your Wound -Person Taught Patient -Teaching Method Discussion -Response to teaching Verbalize understanding WC - Visit Discharge Discharge Condition Stable Ambulatory Status Ambulatory Transportation Private Auto Accompanied by self Medication Reconcilliation completed & No provided to patient/care provider Clinical Summary of Care Provided Yes Assessment/Plan Assessment/Plan (1) Ulcer of left lower extremity with fat layer exposed: CODE(S): L97.922 - Non-pressure chronic ulcer of unspecified part of left lower leg with fat layer exposed (2) PVD (peripheral vascular disease): CODE(S): I73.9 - Peripheral vascular disease, unspecified (3) Chronic venous insufficiency: CODE(S): I87.2 - Venous insufficiency (chronic) (peripheral) (4) Delayed wound healing: CODE(S): T14.8XXD - Other injury of unspecified body region, subsequent encounter PLAN: Plan Debridement done as documented above, procedure was well-tolerated. Stable. Continue Aquacel and care max to left medial ankle ulcer. Continue mupirocin ointment as well. Continue use of compression stockings, leg elevation and exercise. Increased protein intake, protein supplements, zinc and vitamin C also recommended. Continue multivitamins. His questions were answered and he was advised to call with any further questions or concerns. Follow-up in 2 weeks. This note was generated with IntelliDOT dictation software. It may contain incorrectwords, spelling, and punctuation that were not noted in checking the note beforesigning. 03/29/23 0832 <Electronically signed by Alice Amaya MD> Cosigner Signature (if applicable): CC: ~ Signed [facility] Work Phone: 1(513) 568-892805-18-[address] Amaya [facility] March 15, 2023 8:33am Note Date/Time March 15, 2023 8:33a [facility] [address] [place] [id number] Progress Note - Wound Care 03/15/23 0830 MR#: [id number] Acct: [id number] Name: RUBEN ALLEN Jr. Rep #:[id number] 03 : 1965 57 From: Alice dickerson MD PCP: Dr. George Frausto MD Status :REG RCR Location: History of Present Illness Date of Service: 03/15/23 Chief Complaint: ulcers to the left lower leg History of Wound: This is a 54-year-old male presents to wound healing center with a long-standing history of chronic venous insufficiency, chronic venous hypertension, lower extremity edema, lower extremity pain, and chronic left lower extremity ulcer. 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 He is currently wearing graduated compression stockings which are documented to be 20-30 mmHg compression and these are thigh high. He reports great compliance with use. Heis also had previous arterial work-up with no intervention recommended by letter, his vascular surgeon. He denies taking nutritional supplementation. [facility] dermat[facility] and had a biopsy of the ulcer site. He also was previously treated by infectious disease for various contaminations and infections. He is not antibiotics at this time nor does he have any redness or odor coming from the wound. He denies fever, chill, nausea, vomiting, loss of appetite. 05/18/22: Mr. Allen presents with a new right lower extremity ulceration. He states that this has been present for months and he has been trying to manage itat home without any significant improvement. Opened up months ago, no known precipitating factor. Has been applying wound dressings without any significantimprovement. He reports increased drainage. Denies significant pain. No chills, fever or feeling of unwell. Progress of Wound: Improving. No new concerns at this time. Objective Data Objective Data Vital Signs: Vital Signs Temp Pulse Resp BP Pulse Ox O2 Del Method 96.5 F L 83 16 164/88 H 99 Room Air 03/15/23 08:00 03/15/23 08:00 03/01/23 08:04 03/15/23 08:00 02/26/23 00:28 03/01/23 08:04 Oxygen Delivery Method Room Air Body Mass Index (BMI) 31.4 Charges/Coding Procedures Integumentary 111xxx-113xx: 50232 Lakeisha subq tissue 20 sq cm/< Physical Exam Const alert, oriented x3 and no apparent distress General Appearance: cooperative and comfortable Orientation / Consciousness: awake HEENT normocephalic Head and Scalp: normal to inspection, normocephalic and atraumatic Face and Sinus: normal facial exam Eyes EOMs intact bilaterally Neck full ROM and supple General: normal visual inspection Resp normal respiratory effort Effort and Inspection: able to speak in complete sentences GI non-tender Extremity normal to inspection General Extremity: edema Skin Wounds: wounds noted Neuro oriented x3 and CN's II-XII intact bilaterally Psych mental status grossly normal Appearance: grossly normal Debridement Note Debridement Note Wound debrided: Left medial ankle Type of Debridement: Excisional debridement Anesthesia Used: 5% Lidocaine Gel Depth: Down to and including healthy tissue and in the subcutaneous layer Percentage of wound debrided: 100 Instrument Used: 5mm curette Tissue Removed: Slough and devitalized tissue Severity: Fat Layer Exposed Amount of bleeding with debridement: Mild Bleeding Controlled with: Pressure Patient tolerated procedure: Patient tolerated procedure well Post-Debridement Measurements and Additional Note: Post-Debridement Measurements/Treatment - Nurse 1 - General Ulcer Assessment Start: 03/01/23 08:04 Freq: Status: Active Protocol: SHANTA Activity Type Activity Date Activity User E-sign Co-sign Detail Recorded Client Recorded Date Recorded By Document 03/01/23 08:04 [facility] [id number] 03/01/23 08:09 [facility] Document 03/15/23 08:00 [facility] [id number] 03/15/23 08:07 [facility] 03/01/23 03/15/23 08:04 08:00 - Today's Visit Information Type of service Follow-up Visit Follow-up Visit (Physician/SUPERVISOR CHANNEL PROCESS (Physician/SUPERVISOR CHANNEL PROCESS ) ) Arrival Mode Ambulatory Ambulatory Transfer Assistance None None Patient Identification Verified (Name & Yes Yes ) Patient Requires Transmission-Based No No Precautions Height and Weight Body Mass Index (BMI) 31.4 31.4 BMI Classification Obese Obese Vital Signs Temperature (97.8 F-99.1 F) 96.6 F L 96.5 F L Temperature Source Temporal Temporal Pulse Rate (60-100) 86 83 Pulse Location Monitor Monitor Respiratory Rate (12-18) 16 Respiratory rate source Observation Oxygen Delivery Method Room Air Blood Pressure (90/60-120/80) 169/91 H 164/88 H Blood Pressure Mean (mm Hg) 117 113 Source Monitor Monitor Position Sitting Sitting Blood Pressure Location Left Arm Left Arm History Since Last Visit- (Skip if this is Patient's initial visit) Have you changed medications since your No No last visit? Any new allergies or adverse reactions No No Had a fall/change in ADL's that may No No increase risk of falls Signs or symptoms of abuse and/or No No neglect since last visit Have you been in the hospital since your No No last visit? Has dressing in place as prescribed Yes Yes Has compression in place as prescribed Yes Yes Has offloadiing in place as prescribed N/A N/A Experienced any changes in pain level or No No management Left Footwear Regular Shoe Regular Shoe Right Footwear Regular Shoe Regular Shoe Pain Scale: 0-10 Numeric Is Patient Pain Free? Yes Yes WC - Nurse 1 - General Ulcer Measurement Start: 03/01/23 08:04 Freq: Status: Active Protocol: Activity Type Activity Date Activity User E-sign Co-sign Detail Recorded Client Recorded Date Recorded By Document 03/01/23 08:04 [facility] [id number] 03/01/23 08:09 BM Document 03/15/23 08:00 [facility] [id number] 03/15/23 08:07 BMF 03/01/23 03/15/23 08:04 08:00 Wound Center Nurse 1 #10 Left Medial Ankle -Combined with other wound No No -Current Size (cm) - Length 4.2 3.8 -Current Size (cm) - Width 2.9 2.6 -Current Size (cm) - Depth 0.2 0.2 -Total Square Cm 12.18 9.88 -Date of Last Picture (Recall this 03/01/23 03/15/23 field) -Photo Taken Yes Yes -Epithelialization None Present Small 1-33% -Tunneling No No -Undermining/Tunneling No No -Circular Undermining No No -Exudate Amt Medium Medium -Exudate Type Serosanguineous Serosanguineous -Wound Margin Distinct, Distinct, Outline Outline Attached Attached -Granulation Amt Small (1-33%) Medium (34-66%) -Granulation Quality Red Red -Slough/Fibrin Yes Yes -Necrosis Amt Large (67-100%) Medium (34-66%) -Necrotic Tissue Type Adherent Slough Adherent Slough -Texture (Ara-wound Skin Appearance) Assessed, Assessed, Scarring Scarring -Moisture (Ara-wound Skin Appearance) Assessed,Dry/ Assessed,Dry/ Scaly Scaly -Color (Ara-wound Skin Appearance) Assessed, Assessed Hemosiderin Staining -Temperature (Ara-wound Skin No Abnormality No Abnormality Appearance) (Pt Warm) (Pt Warm) -Tenderness on Palpation (Ara-wound No No Skin Appearance) -Ulcer Cleansing Rinsed/ Rinsed/ Irrigated with Irrigated with Saline Saline -Foul Odor after Cleansing No No -Anesthetic Used 5% Lidocaine 5% Lidocaine Gel Gel Left Calf (cm) 36.5 37.1 Left Ankle (cm) 23.3 22.9 WC - Nurse 2 - General Ulcer CM Notes Start: 03/01/23 08:04 Freq: Status: Active Protocol: Activity Type Activity Date Activity User E-sign Co-sign Detail Recorded Client Recorded Date Recorded By Document 03/01/23 08:27 MW [id number] 03/01/23 08:31 MW Document 03/15/23 08:24 JF [id number] 03/15/23 08:25 JF 03/01/23 03/15/23 08:27 08:24 Wound Center Nurse 2 #10 Left Medial Ankle -Time 08:27 08:24 -Correct Patient Yes Yes -Correct Side, Site, Position Yes Yes -Correct Procedure Yes Yes -Procedure Performed Yes Yes -Type of Procedure Debridement Debridement -Clinical Debridement Subcutaneous Subcutaneous -Tissue Removed Subcutaneous Subcutaneous -Post Debridement (cm) - Length 3.5 3.7 -Post Debridement (cm) - Width 2.5 2.6 -Post Debridement (cm) - Depth 0.2 0.2 -Total Square (Post) (cm) 8.75 9.62 -Area of Debridement (cm) - Length 3.5 3.7 -Area of Debridement (cm) - Width 2.5 2.6 -Total Square (Area) (cm) 8.75 9.62 -Tunneling No No -Undermining/Tunneling No No -Circular Undermining No No -Wound/Ulcer Outcome Not Healed Not Healed -Ulcer Cleansing Rinsed/ Rinsed/ Irrigated with Irrigated with Saline Saline -Foul Odor after Cleansing No No -Bioengineered Tissue No No -Bleeding Controlled with Pressure Pressure -Treatment Response Procedure Procedure Tolerated Well Tolerated Well -Offloading No No -Debridement - Subq, 1st 20sq cm Yes Yes Pain Scale: 0-10 Numeric Is Patient Pain Free? Yes Yes WC - Nurse 3 - General Ulcer D/C NN Start: 03/01/23 08:04 Freq: Status: Active Protocol: Activity Type Activity Date Activity User E-sign Co-sign Detail Recorded Client Recorded Date Recorded By Document 03/01/23 08:31 CATRACHITO [id number] 03/01/23 08:32 MW Document 03/15/23 08:26 CARLOS [id number] 03/15/23 08:26 CARLOS 03/01/23 03/15/23 08:31 08:26 Wound Care Center Nurse 3 #10 Left Medial Ankle -Ulcer Cleansing Rinsed/ Rinsed/ Irrigated with Irrigated with Saline Saline -Foul Odor after Cleansing No No -Negative Pressure Wound Therapy N/A -Other Dressing ABD pad -Primary Dressing Covered/Secured with Secured with Tape -Other Covering ABD Left -Lotion applied to leg before No compression wrap -Stockings Yes Treatment Response Procedure Tolerated Well Pain Scale: 0-10 Numeric Is Patient Pain Free? Yes Yes Teaching: Wound Center Dressing Your Wound -Person Taught Patient -Teaching Method Discussion -Response to teaching Verbalize understanding WC - Visit Discharge Discharge Condition Stable Stable Ambulatory Status Ambulatory Ambulatory Transportation Private Auto Private Auto Accompanied by self Medication Reconcilliation completed & No Yes provided to patient/care provider Clinical Summary of Care Provided Yes Yes Assessment/Plan Assessment/Plan (1) Ulcer of left lower extremity with fat layer exposed: CODE(S): L97.922 - Non-pressure chronic ulcer of unspecified part of left lower leg with fat layer exposed (2) PVD (peripheral vascular disease): CODE(S): I73.9 - Peripheral vascular disease, unspecified (3) Chronic venous insufficiency: CODE(S): I87.2 - Venous insufficiency (chronic) (peripheral) (4) Delayed wound healing: CODE(S): T14.8XXD - Other injury of unspecified body region, subsequent encounter PLAN: Plan Debridement done as documented above, procedure was well-tolerated. Stable. Continue Aquacel and care max to left medial ankle ulcer. Add on adaptic due tocrusting. Continue mupirocin ointment as well. Continue use of compression stockings, leg elevation and exercise. Increased protein intake, protein supplements, zinc and vitamin C also recommended. Continue multivitamins. Hisquestions were answered and he was advised to call with any further questions orconcerns. Follow-up in 2 weeks. This note was generated with Dragon dictation software. It may contain incorrectwords, spelling, and punctuation that were not noted in checking the note beforesigning. 03/15/23 0833 <Electronically signed by Alice Amaya MD> Cosigner Signature (if applicable): CC: ~ Signed [facility] Work Phone: 1(991) 905-515905-04-[address] Amaya [facility] March 01, 2023 9:18am Note Date/Time March 01, 2023 9:18am [facility] [address] [place] [address] Progress Note - Wound Care 03/01/23 0915 MR#: [id number] Acct: [id number] Name: RUBEN ALLEN Jr. Rep #:[id number] 04 : 1965 57 From: Alice dickerson MD PCP: Dr. George Frausto MD Status :REG RCR Location: History of Present Illness Date of Service: 03/01/23 Chief Complaint: ulcers to the left lower leg History of Wound: This is a 54-year-old male presents to wound healing center with a long-standing history of chronic venous insufficiency, chronic venous hypertension, lower extremity edema, lower extremity pain, and chronic left lower extremity ulcer. 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 He is currently wearing graduated compression stockings which are documented to be 20-30 mmHg compression and these are thigh high. He reports great compliance with use. Heis also had previous arterial work-up with no intervention recommended by letter, his vascular surgeon. He denies taking nutritional supplementation. [facility] and had a biopsy of the ulcer site. He also was previously treated by infectious disease for various contaminations and infections. He is not antibiotics at this time nor does he have any redness or odor coming from the wound. He denies fever, chill, nausea, vomiting, loss of appetite. 05/18/22: Mr. Allen presents with a new right lower extremity ulceration. He states that this has been present for months and he has been trying to manage itat home without any significant improvement. Opened up months ago, no known precipitating factor. Has been applying wound dressings without any significantimprovement. He reports increased drainage. Denies significant pain. No chills, fever or feeling of unwell. Progress of Wound: Improving. No new concerns at this time. Objective Data Objective Data Vital Signs: Vital Signs Temp Pulse Resp BP Pulse Ox O2 Del Method 96.6 F L 86 16 169/91 H 99 Room Air 03/01/23 08:04 03/01/23 08:04 03/01/23 08:04 03/01/23 08:04 02/26/23 00:28 03/01/23 08:04 Oxygen Delivery Method Room Air Body Mass Index (BMI) 31.4 Charges/Coding Procedures Integumentary 111xxx-113xx: 35341 Lakeisha subq tissue 20 sq cm/< Physical Exam Const alert, oriented x3 and no apparent distress General Appearance: cooperative and comfortable Orientation / Consciousness: awake HEENT normocephalic Head and Scalp: normal to inspection, normocephalic and atraumatic Face and Sinus: normal facial exam Eyes EOMs intact bilaterally Neck full ROM and supple General: normal visual inspection Resp normal respiratory effort Effort and Inspection: able to speak in complete sentences GI non-tender Extremity normal to inspection General Extremity: edema Skin Wounds: wounds noted Neuro oriented x3 and CN's II-XII intact bilaterally Psych mental status grossly normal Appearance: grossly normal Debridement Note Debridement Note Wound debrided: Left medial ankle Type of Debridement: Excisional debridement Anesthesia Used: 5% Lidocaine Gel Depth: Down to and including healthy tissue and in the subcutaneous layer Percentage of wound debrided: 100 Instrument Used: 5mm curette Tissue Removed: Slough and devitalized tissue Severity: Fat Layer Exposed Amount of bleeding with debridement: Mild Bleeding Controlled with: Pressure Patient tolerated procedure: Patient tolerated procedure well Post-Debridement Measurements and Additional Note: Post-Debridement Measurements/Treatment - Nurse 1 - General Ulcer Assessment Start: 03/01/23 08:04 Freq: Status: Active Protocol: SHANTA Activity Type Activity Date Activity User E-sign Co-sign Detail Recorded Client Recorded Date Recorded By Document 03/01/23 08:04 [facility] [id number] 03/01/23 08:09 [facility] 03/01/23 08:04 - Today's Visit Information Type of service Follow-up Visit (Physician/SUPERVISOR CHANNEL PROCESS ) Arrival Mode Ambulatory Transfer Assistance None Patient Identification Verified (Name & Yes ) Patient Requires Transmission-Based No Precautions Height and Weight Body Mass Index (BMI) 31.4 BMI Classification Obese Vital Signs Temperature (97.8 F-99.1 F) 96.6 F L Temperature Source Temporal Pulse Rate (60-100) 86 Pulse Location Monitor Respiratory Rate (12-18) 16 Respiratory rate source Observation Oxygen Delivery Method Room Air Blood Pressure (90/60-120/80) 169/91 H Blood Pressure Mean (mm Hg) 117 Source Monitor Position Sitting Blood Pressure Location Left Arm History Since Last Visit- (Skip if this is Patient's initial visit) Have you changed medications since your No last visit? Any new allergies or adverse reactions No Had a fall/change in ADL's that may No increase risk of falls Signs or symptoms of abuse and/or No neglect since last visit Have you been in the hospital since your No last visit? Has dressing in place as prescribed Yes Has compression in place as prescribed Yes Has offloadiing in place as prescribed N/A Experienced any changes in pain level or No management Left Footwear Regular Shoe Right Footwear Regular Shoe Pain Scale: 0-10 Numeric Is Patient Pain Free? Yes - Nurse 1 - General Ulcer Measurement Start: 03/01/23 08:04 Freq: Status: Active Protocol: Activity Type Activity Date Activity User E-sign Co-sign Detail Recorded Client Recorded Date Recorded By Document 03/01/23 08:04 [facility] [id number] 03/01/23 08:09 [facility] 03/01/23 08:04 Wound Center Nurse 1 #10 Left Medial Ankle -Combined with other wound No -Current Size (cm) - Length 4.2 -Current Size (cm) - Width 2.9 -Current Size (cm) - Depth 0.2 -Total Square Cm 12.18 -Date of Last Picture (Recall this 03/01/23 field) -Photo Taken Yes -Epithelialization None Present -Tunneling No -Undermining/Tunneling No -Circular Undermining No -Exudate Amt Medium -Exudate Type Serosanguineous -Wound Margin Distinct, Outline Attached -Granulation Amt Small (1-33%) -Granulation Quality Red -Slough/Fibrin Yes -Necrosis Amt Large (67-100%) -Necrotic Tissue Type Adherent Slough -Texture (Ara-wound Skin Appearance) Assessed, Scarring -Moisture (Ara-wound Skin Appearance) Assessed,Dry/ Scaly -Color (Ara-wound Skin Appearance) Assessed, Hemosiderin Staining -Temperature (Ara-wound Skin No Abnormality Appearance) (Pt Warm) -Tenderness on Palpation (Ara-wound No Skin Appearance) -Ulcer Cleansing Rinsed/ Irrigated with Saline -Foul Odor after Cleansing No -Anesthetic Used 5% Lidocaine Gel Left Calf (cm) 36.5 Left Ankle (cm) 23.3 WC - Nurse 2 - General Ulcer CM Notes Start: 03/01/23 08:04 Freq: Status: Active Protocol: Activity Type Activity Date Activity User E-sign Co-sign Detail Recorded Client Recorded Date Recorded By Document 03/01/23 08:27 MW [id number] 03/01/23 08:31 MW 03/01/23 08:27 Wound Center Nurse 2 #10 Left Medial Ankle -Time 08:27 -Correct Patient Yes -Correct Side, Site, Position Yes -Correct Procedure Yes -Procedure Performed Yes -Type of Procedure Debridement -Clinical Debridement Subcutaneous -Tissue Removed Subcutaneous -Post Debridement (cm) - Length 3.5 -Post Debridement (cm) - Width 2.5 -Post Debridement (cm) - Depth 0.2 -Total Square (Post) (cm) 8.75 -Area of Debridement (cm) - Length 3.5 -Area of Debridement (cm) - Width 2.5 -Total Square (Area) (cm) 8.75 -Tunneling No -Undermining/Tunneling No -Circular Undermining No -Wound/Ulcer Outcome Not Healed -Ulcer Cleansing Rinsed/ Irrigated with Saline -Foul Odor after Cleansing No -Bioengineered Tissue No -Bleeding Controlled with Pressure -Treatment Response Procedure Tolerated Well -Offloading No -Debridement - Subq, 1st 20sq cm Yes Pain Scale: 0-10 Numeric Is Patient Pain Free? Yes - Nurse 3 - General Ulcer D/C NN Start: 03/01/23 08:04 Freq: Status: Active Protocol: Activity Type Activity Date Activity User E-sign Co-sign Detail Recorded Client Recorded Date Recorded By Document 03/01/23 08:31 MW [id number] 03/01/23 08:32 MW 03/01/23 08:31 Wound Care Center Nurse 3 #10 Left Medial Ankle -Ulcer Cleansing Rinsed/ Irrigated with Saline -Foul Odor after Cleansing No -Negative Pressure Wound Therapy N/A -Primary Dressing Covered/Secured with Secured with Tape -Other Covering ABD Left -Lotion applied to leg before No compression wrap -Stockings Yes Treatment Response Procedure Tolerated Well Pain Scale: 0-10 Numeric Is Patient Pain Free? Yes Teaching: Wound Center Dressing Your Wound -Person Taught Patient -Teaching Method Discussion -Response to teaching Verbalize understanding WC - Visit Discharge Discharge Condition Stable Ambulatory Status Ambulatory Transportation Private Auto Accompanied by self Medication Reconcilliation completed & No provided to patient/care provider Clinical Summary of Care Provided Yes Assessment/Plan Assessment/Plan (1) Ulcer of left lower extremity with fat layer exposed: CODE(S): L97.922 - Non-pressure chronic ulcer of unspecified part of left lower leg with fat layer exposed (2) PVD (peripheral vascular disease): CODE(S): I73.9 - Peripheral vascular disease, unspecified (3) Chronic venous insufficiency: CODE(S): I87.2 - Venous insufficiency (chronic) (peripheral) (4) Delayed wound healing: CODE(S): T14.8XXD - Other injury of unspecified body region, subsequent encounter PLAN: Plan Debridement done as documented above, procedure was well-tolerated. Improving. Continue Aquacel and care max to left medial ankle ulcer. Moisturize both lower extremities using Vaseline. Continue mupirocin ointment as well. Continue use of compression stockings, leg elevation and exercise. Increased protein intake,protein supplements, zinc and vitamin C also recommended. Continue multivitamins. His questions were answered and he was advised to call with anyfurther questions or concerns. Follow-up in 2 weeks. This note was generated with IntelliDOT dictation software. It may contain incorrectwords, spelling, and punctuation that were not noted in checking the note beforesigning. 03/01/23917 <Electronically signed by Alice Amaya MD> Cosigner Signature (if applicable): CC: ~ Signed [facility] Work Phone: 1(240) 115-363504-20-[address] Amaya [facility] February 15, 2023 8:35am Note Date/Time February 15, 2023 8:3 2am [facility] [address] [place] [address] Progress Note - Wound Care 02/15/23 0829 MR#: [id number] Acct: [id number] Name: RUBEN ALLEN Jr. Rep #:[id number] : 1965 57 From: Alice dickerson MD PCP: Dr. George Frausto MD Status :REG RCR Location: History of Present Illness Date of Service: 02/15/23 Chief Complaint: ulcers to the left lower leg History of Wound: This is a 54-year-old male presents to wound healing center with a long-standing history of chronic venous insufficiency, chronic venous hypertension, lower extremity edema, lower extremity pain, and chronic left lower extremity ulcer. 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 He is currently wearing graduated compression stockings which are documented to be 20-30 mmHg compression and these are thigh high. He reports great compliance with use. Heis also had previous arterial work-up with no intervention recommended by letter, his vascular surgeon. He denies taking nutritional supplementation. [facility] and had a biopsy of the ulcer site. He also was previously treated by infectious disease for various contaminations and infections. He is not antibiotics at this time nor does he have any redness or odor coming from the wound. He denies fever, chill, nausea, vomiting, loss of appetite. 05/18/22: Mr. Allen presents with a new right lower extremity ulceration. He states that this has been present for months and he has been trying to manage itat home without any significant improvement. Opened up months ago, no known precipitating factor. Has been applying wound dressings without any significantimprovement. He reports increased drainage. Denies significant pain. No chills, fever or feeling of unwell. Progress of Wound: Now down to 1 ulcer. This is also improving. No new concerns reported at this time. Objective Data Objective Data Vital Signs: Vital Signs Temp Pulse Resp BP Pulse Ox O2 Del Method 96.9 F L 88 16 146/83 H 99 Room Air 02/15/23 08:01 02/15/23 08:01 02/15/23 08:01 02/15/23 08:01 01/27/23 01:31 02/15/23 08:01 Oxygen Delivery Method Room Air Body Mass Index (BMI) 31.4 Charges/Coding Procedures Integumentary 111xxx-113xx: 56629 Lakeisha subq tissue 20 sq cm/< Physical Exam Const alert, oriented x3 and no apparent distress General Appearance: cooperative and comfortable Orientation / Consciousness: awake HEENT normocephalic Head and Scalp: normal to inspection, normocephalic and atraumatic Face and Sinus: normal facial exam Eyes EOMs intact bilaterally Neck full ROM and supple General: normal visual inspection Resp normal respiratory effort Effort and Inspection: able to speak in complete sentences GI non-tender Extremity normal to inspection General Extremity: edema Skin Wounds: wounds noted Neuro oriented x3 and CN's II-XII intact bilaterally Psych mental status grossly normal Appearance: grossly normal Debridement Note Debridement Note Wound debrided: Left medial ankle Type of Debridement: Excisional debridement Anesthesia Used: 5% Lidocaine Gel Depth: Down to and including healthy tissue and in the subcutaneous layer Percentage of wound debrided: 100 Instrument Used: 5mm curette Tissue Removed: Slough and devitalized tissue Severity: Fat Layer Exposed Amount of bleeding with debridement: Mild Bleeding Controlled with: Pressure Patient tolerated procedure: Patient tolerated procedure well Post-Debridement Measurements and Additional Note: Post-Debridement Measurements/Treatment - Nurse 1 - General Ulcer Assessment Start: 02/01/23 07:55 Freq: Status: Active Protocol: SHANTA Activity Type Activity Date Activity User E-sign Co-sign Detail Recorded Client Recorded Date Recorded By Document 02/01/23 07:55 DL [id number] 02/01/23 07:58 DL Document 02/15/23 08:01 [facility] [id number] 02/15/23 08:06 BMF 02/01/23 02/15/23 07:55 08:01 - Today's Visit Information Type of service Follow-up Visit Follow-up Visit (Physician/SUPERVISOR CHANNEL PROCESS (Physician/SUPERVISOR CHANNEL PROCESS ) ) Arrival Mode Ambulatory Ambulatory Transfer Assistance None None Patient Identification Verified (Name & Yes Yes ) Patient Requires Transmission-Based No No Precautions Height and Weight Body Mass Index (BMI) 31.4 31.4 BMI Classification Obese Obese Vital Signs Temperature (97.8 F-99.1 F) 97.6 F L 96.9 F L Temperature Source Temporal Temporal Pulse Rate (60-100) 99 88 Pulse Location Monitor Monitor Respiratory Rate (12-18) 20 H 16 Respiratory rate source Observation Observation Oxygen Delivery Method Room Air Blood Pressure (90/60-120/80) 161/56 H 146/83 H Blood Pressure Mean (mm Hg) 91 104 Source Monitor Monitor Position Sitting Blood Pressure Location Left Arm History Since Last Visit- (Skip if this is Patient's initial visit) Have you changed medications since your No No last visit? Any new allergies or adverse reactions No No Had a fall/change in ADL's that may No No increase risk of falls Signs or symptoms of abuse and/or No No neglect since last visit Have you been in the hospital since your No No last visit? Has dressing in place as prescribed Yes Yes Has compression in place as prescribed Yes Yes Has offloadiing in place as prescribed N/A N/A Experienced any changes in pain level or No No management Left Footwear Regular Shoe Right Footwear Regular Shoe Pain Scale: 0-10 Numeric Is Patient Pain Free? Yes Yes WC - Nurse 1 - General Ulcer Measurement Start: 02/01/23 07:55 Freq: Status: Active Protocol: Activity Type Activity Date Activity User E-sign Co-sign Detail Recorded Client Recorded Date Recorded By Document 02/01/23 07:55 DL [id number] 02/01/23 07:58 DL Document 02/15/23 08:01 [facility] [id number] 02/15/23 08:06 BM 02/01/23 02/15/23 07:55 08:01 Wound Center Nurse 1 #10 Left Medial Ankle -Combined with other wound No -Current Size (cm) - Length 4.2 3.9 -Current Size (cm) - Width 2.9 2.3 -Current Size (cm) - Depth 0.2 0.2 -Total Square Cm 12.18 8.97 -Date of Last Picture (Recall this 02/15/23 field) -Photo Taken No Yes -Epithelialization Small 1-33% -Tunneling No -Undermining/Tunneling No -Circular Undermining No -Exudate Amt Medium Medium -Exudate Type Serosanguineous Serosanguineous -Wound Margin Distinct, Distinct, Outline Outline Attached Attached -Granulation Amt Medium (34-66%) Medium (34-66%) -Granulation Quality Red Red -Slough/Fibrin Yes -Necrosis Amt Medium (34-66%) Medium (34-66%) -Necrotic Tissue Type Adherent Slough Adherent Slough -Structure Exposed N/A -Texture (Ara-wound Skin Appearance) Scarring Assessed, Scarring -Moisture (Ara-wound Skin Appearance) Dry/Scaly Assessed,Dry/ Scaly -Color (Ara-wound Skin Appearance) Hemosiderin Assessed Staining -Temperature (Ara-wound Skin No Abnormality No Abnormality Appearance) (Pt Warm) (Pt Warm) -Tenderness on Palpation (Ara-wound No No Skin Appearance) -Ulcer Cleansing Soap and Water Rinsed/ Irrigated with Saline -Foul Odor after Cleansing No No -Anesthetic Used 4% Lidocaine 5% Lidocaine Solution Gel Left Calf (cm) 36.6 36.8 Left Ankle (cm) 22.9 23.4 WC - Nurse 2 - General Ulcer CM Notes Start: 02/01/23 07:55 Freq: Status: Active Protocol: Activity Type Activity Date Activity User E-sign Co-sign Detail Recorded Client Recorded Date Recorded By Document 02/15/23 08:24 MW [id number] 02/15/23 08:26 MW 02/15/23 08:24 Wound Center Nurse 2 #10 Left Medial Ankle -Time 08:24 -Correct Patient Yes -Correct Side, Site, Position Yes -Correct Procedure Yes -Procedure Performed Yes -Type of Procedure Debridement -Clinical Debridement Subcutaneous -Tissue Removed Subcutaneous -Post Debridement (cm) - Length 4.0 -Post Debridement (cm) - Width 3.1 -Post Debridement (cm) - Depth 0.2 -Total Square (Post) (cm) 12.40 -Area of Debridement (cm) - Length 4.0 -Area of Debridement (cm) - Width 3.1 -Total Square (Area) (cm) 12.40 -Tunneling No -Undermining/Tunneling No -Circular Undermining No -Wound/Ulcer Outcome Not Healed -Ulcer Cleansing Rinsed/ Irrigated with Saline -Foul Odor after Cleansing No -Bioengineered Tissue No -Bleeding Controlled with Pressure -Treatment Response Procedure Tolerated Well -Offloading No -Debridement - Subq, 1st 20sq cm Yes Pain Scale: 0-10 Numeric Is Patient Pain Free? Yes WC - Nurse 3 - General Ulcer D/C NN Start: 02/01/23 07:55 Freq: Status: Active Protocol: Activity Type Activity Date Activity User E-sign Co-sign Detail Recorded Client Recorded Date Recorded By Document 02/01/23 08:09 MW [id number] 02/01/23 08:13 MW Document 02/15/23 08:26 MW [id number] 02/15/23 08:27 MW 02/01/23 02/15/23 08:09 08:26 Wound Care Center Nurse 3 #10 Left Medial Ankle -Ulcer Cleansing Rinsed/ Rinsed/ Irrigated with Irrigated with Saline Saline -Foul Odor after Cleansing No No -Negative Pressure Wound Therapy N/A N/A -Other Dressing ABD PAD abd -Primary Dressing Covered/Secured with Secured with Tape Treatment Response Procedure Tolerated Well Pain Scale: 0-10 Numeric Is Patient Pain Free? No Yes Teaching: Wound Center Dressing Your Wound -Person Taught Patient -Teaching Method Discussion, Demonstration -Response to teaching Verbalize understanding WC - Visit Discharge Discharge Condition Stable Stable Ambulatory Status Ambulatory Ambulatory Transportation Private Auto Private Auto Accompanied by self self Medication Reconcilliation completed & No No provided to patient/care provider Clinical Summary of Care Provided Yes Yes Notes: Patient has new insurance but does not have the new insurance card or member number. He does not want to jessica pay for todays visit therefore he will call the wound center to re-schedule when he receives his insurance information. Assessment/Plan Assessment/Plan (1) Ulcer of left lower extremity with fat layer exposed: CODE(S): L97.922 - Non-pressure chronic ulcer of unspecified part of left lower leg with fat layer exposed (2) PVD (peripheral vascular disease): CODE(S): I73.9 - Peripheral vascular disease, unspecified (3) Chronic venous insufficiency: CODE(S): I87.2 - Venous insufficiency (chronic) (peripheral) (4) Delayed wound healing: CODE(S): T14.8XXD - Other injury of unspecified body region, subsequent encounter PLAN: Plan Debridement done as documented above, procedure was well-tolerated. Improving. Continue Aquacel and care max to left medial ankle ulcer. Left lower extremity ulcer stays healed. Moisturize both lower extremities using Vaseline. Continue mupirocin ointment as well. Continue use of compression stockings, leg elevation and exercise. Increased protein intake, protein supplements, zinc andvitamin C also recommended. Continue multivitamins. His questions were answered and he was advised to call with any further questions or concerns. Follow-up in 2 weeks. This note was generated with RadioFrame[employer] software. It may contain incorrectwords, spelling, and punctuation that were not noted in checking the note beforesigning. 02/15/23 0835 <Electronically signed by Alice Amaya MD> Cosigner Signature (if applicable): CC: ~ Signed [facility] Work Phone: 1(351) 483-177403-23-[address] Amaya [facility] January 18, 2023 9:29am Note Date/Time January 18, 2023 9:2 3am [facility] [address] [place] [id number] Progress Note - Wound Care 01/18/23 0918 MR#: [id number] Acct: [id number] Name: RUBEN ALLEN Jr. Rep #:[id number] 03 : 1965 57 From: Alice dickerson MD PCP: Dr. George Frausto MD Status :REG R Location: History of Present Illness Date of Service: 01/18/23 Chief Complaint: ulcers to the left lower leg History of Wound: This is a 54-year-old male presents to wound healing center with a long-standing history of chronic venous insufficiency, chronic venous hypertension, lower extremity edema, lower extremity pain, and chronic left lower extremity ulcer. 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 He is currently wearing graduated compression stockings which are documented to be 20-30 mmHg compression and these are thigh high. He reports great compliance with use. Heis also had previous arterial work-up with no intervention recommended by letter, his vascular surgeon. He denies taking nutritional supplementation. [facility] and had a biopsy of the ulcer site. He also was previously treated by infectious disease for various contaminations and infections. He is not antibiotics at this time nor does he have any redness or odor coming from the wound. He denies fever, chill, nausea, vomiting, loss of appetite. 05/18/22: Mr. Allen presents with a new right lower extremity ulceration. He states that this has been present for months and he has been trying to manage itat home without any significant improvement. Opened up months ago, no known precipitating factor. Has been applying wound dressings without any significantimprovement. He reports increased drainage. Denies significant pain. No chills, fever or feeling of unwell. Progress of Wound: No acute concerns at this time. Doing dressing changes as recommended. Left inferior ulcer healed. Objective Data Objective Data Vital Signs: Vital Signs Temp Pulse Resp BP Pulse Ox O2 Del Method 97.2 F L 87 16 141/71 H 99 Room Air 01/18/23 07:48 01/18/23 07:48 01/18/23 07:48 01/18/23 07:48 12/27/22 00:19 01/18/23 07:48 Oxygen Delivery Method Room Air Body Mass Index (BMI) 31.4 Charges/Coding Procedures Integumentary 111xxx-113xx: 31798 Lakeisha subq tissue 20 sq cm/< Physical Exam Const alert, oriented x3 and no apparent distress General Appearance: cooperative and comfortable Orientation / Consciousness: awake HEENT normocephalic Head and Scalp: normal to inspection, normocephalic and atraumatic Face and Sinus: normal facial exam Eyes EOMs intact bilaterally Neck full ROM and supple General: normal visual inspection Resp normal respiratory effort Effort and Inspection: able to speak in complete sentences GI non-tender Extremity normal to inspection General Extremity: edema Skin Wounds: wounds noted Neuro oriented x3 and CN's II-XII intact bilaterally Psych mental status grossly normal Appearance: grossly normal Debridement Note Debridement Note Wound debrided: Left medial ankle Type of Debridement: Excisional debridement Anesthesia Used: 5% Lidocaine Gel Depth: Down to and including healthy tissue and in the subcutaneous layer Percentage of wound debrided: 100 Instrument Used: 5mm curette Tissue Removed: Slough and devitalized tissue Severity: Fat Layer Exposed Amount of bleeding with debridement: Mild Bleeding Controlled with: Pressure Patient tolerated procedure: Patient tolerated procedure well Post-Debridement Measurements and Additional Note: Post-Debridement Measurements/Treatment KIMBERLY - Nurse 1 - General Ulcer Assessment Start: 01/04/23 08:01 Freq: Status: Active Protocol: SHANTA Activity Type Activity Date Activity User E-sign Co-sign Detail Recorded Client Recorded Date Recorded By Document 01/04/23 08:01 [facility] [id number] 01/04/23 08:07 BM Document 01/18/23 07:48 [facility] [id number] 01/18/23 07:55 [facility] 01/04/23 01/18/23 08:01 07:48 WC - Today's Visit Information Type of service Follow-up Visit Follow-up Visit (Physician/SUPERVISOR CHANNEL PROCESS (Physician/SUPERVISOR CHANNEL PROCESS ) ) Arrival Mode Ambulatory Ambulatory Transfer Assistance None None Patient Identification Verified (Name & Yes Yes ) Patient Requires Transmission-Based No No Precautions Height and Weight Body Mass Index (BMI) 31.4 31.4 BMI Classification Obese Obese Vital Signs Temperature (97.8 F-99.1 F) 97.3 F L 97.2 F L Temperature Source Temporal Temporal Pulse Rate (60-100) 92 87 Pulse Location Monitor Monitor Respiratory Rate (12-18) 16 16 Respiratory rate source Observation Observation Oxygen Delivery Method Room Air Room Air Blood Pressure (90/60-120/80) 143/81 H 141/71 H Blood Pressure Mean (mm Hg) 101 94 Source Monitor Monitor Position Sitting Sitting Blood Pressure Location Right Arm Right Arm History Since Last Visit- (Skip if this is Patient's initial visit) Have you changed medications since your No No last visit? Any new allergies or adverse reactions No No Had a fall/change in ADL's that may No No increase risk of falls Signs or symptoms of abuse and/or No No neglect since last visit Have you been in the hospital since your No No last visit? Has dressing in place as prescribed Yes Yes Has compression in place as prescribed Yes Yes Has offloadiing in place as prescribed N/A N/A Experienced any changes in pain level or No No management Left Footwear Regular Shoe Regular Shoe Right Footwear Regular Shoe Regular Shoe Pain Scale: 0-10 Numeric Is Patient Pain Free? Yes Yes KIMBERLY - Nurse 1 - General Ulcer Measurement Start: 01/04/23 08:01 Freq: Status: Active Protocol: Activity Type Activity Date Activity User E-sign Co-sign Detail Recorded Client Recorded Date Recorded By Document 01/04/23 08:01 [facility] [id number] 01/04/23 08:07 BM Document 01/18/23 07:48 [facility] [id number] 01/18/23 07:55 BM 01/04/23 01/18/23 08:01 07:48 Wound Center Nurse 1 #11 Medial Inferior LLE -Combined with other wound No -Current Size (cm) - Length 0.2 0.1 -Current Size (cm) - Width 0.2 0.1 -Current Size (cm) - Depth 0.1 0.1 -Total Square Cm 0.04 0.01 -Date of Last Picture (Recall this 01/04/23 field) -Photo Taken Yes Yes -Epithelialization None Present -Tunneling No -Undermining/Tunneling No -Circular Undermining No -Exudate Amt Small None Present -Exudate Type Serous -Wound Margin Distinct, Flat & Intact Outline Attached -Granulation Amt Small (1-33%) Large (67-100%) -Granulation Quality Red Pale,[place] -Slough/Fibrin Yes -Necrosis Amt Large (67-100%) None Present (0 %) -Necrotic Tissue Type Adherent Slough -Structure Exposed N/A -Texture (Ara-wound Skin Appearance) Assessed, Scarring Scarring -Moisture (Ara-wound Skin Appearance) Assessed,Dry/ Dry/Scaly Scaly -Color (Ara-wound Skin Appearance) Assessed, Hemosiderin Hemosiderin Staining Staining -Temperature (Ara-wound Skin No Abnormality No Abnormality Appearance) (Pt Warm) (Pt Warm) -Tenderness on Palpation (Ara-wound No No Skin Appearance) -Ulcer Cleansing Soap and Water Soap and Water -Foul Odor after Cleansing No No -Anesthetic Used 5% Lidocaine 5% Lidocaine Gel Gel #10 Left Medial Ankle -Combined with other wound No -Current Size (cm) - Length 4.5 4.2 -Current Size (cm) - Width 3.3 2.9 -Current Size (cm) - Depth 0.2 0.2 -Total Square Cm 14.85 12.18 -Date of Last Picture (Recall this 03/09/23 field) -Photo Taken Yes Yes -Epithelialization None Present -Tunneling No -Undermining/Tunneling No -Circular Undermining No -Exudate Amt Medium Medium -Exudate Type Serous Serosanguineous -Wound Margin Distinct, Thickened Outline Attached -Granulation Amt None Present (0 Medium (34-66%) %) -Granulation Quality Red -Slough/Fibrin Yes -Necrosis Amt Large (67-100%) Medium (34-66%) -Necrotic Tissue Type Adherent Slough Adherent Slough -Structure Exposed N/A -Texture (Ara-wound Skin Appearance) Assessed, Scarring Scarring -Moisture (Ara-wound Skin Appearance) Assessed Dry/Scaly -Color (Ara-wound Skin Appearance) Assessed, Hemosiderin Hemosiderin Staining Staining -Temperature (Ara-wound Skin No Abnormality No Abnormality Appearance) (Pt Warm) (Pt Warm) -Tenderness on Palpation (Ara-wound No No Skin Appearance) -Ulcer Cleansing Soap and Water Not Cleansed -Foul Odor after Cleansing Yes, Due to Product Use -Anesthetic Used 5% Lidocaine 5% Lidocaine Gel Gel,Cetacaine Right Calf (cm) 37 Right Ankle (cm) 22 Left Calf (cm) 36 37 Left Ankle (cm) 25.5 23.2 WC - Nurse 2 - General Ulcer CM Notes Start: 01/04/23 08:01 Freq: Status: Active Protocol: Activity Type Activity Date Activity User E-sign Co-sign Detail Recorded Client Recorded Date Recorded By Document 01/04/23 08:22 [id number] 01/04/23 08:28 JF Document 01/18/23 08:25 MW [id number] 01/18/23 08:33 MW 01/04/23 01/18/23 08:22 08:25 Wound Center Nurse 2 #11 Medial Inferior LLE -Time 08:22 08:25 -Correct Patient Yes Yes -Correct Side, Site, Position Yes Yes -Correct Procedure Yes Yes -Procedure Performed Yes No -Type of Procedure Debridement -Clinical Debridement Subcutaneous -Tissue Removed Subcutaneous -Post Debridement (cm) - Length 0.1 0 -Post Debridement (cm) - Width 0.1 0 -Post Debridement (cm) - Depth 0.1 0 -Total Square (Post) (cm) 0.01 0 -Area of Debridement (cm) - Length 0.1 -Area of Debridement (cm) - Width 0.1 -Total Square (Area) (cm) 0.01 -Tunneling No No -Undermining/Tunneling No No -Circular Undermining No No -Wound/Ulcer Outcome Not Healed Healed- Epithelialized -Ulcer Cleansing Rinsed/ Irrigated with Saline -Foul Odor after Cleansing No -Bioengineered Tissue No -Bleeding Controlled with Pressure -Treatment Response Procedure Tolerated Well -Offloading No -Debridement - Subq, 1st 20sq cm No #10 Left Medial Ankle -Time 08: 08:25 -Correct Patient Yes Yes -Correct Side, Site, Position Yes Yes -Correct Procedure Yes Yes -Procedure Performed Yes Yes -Type of Procedure Debridement Debridement -Clinical Debridement Subcutaneous Subcutaneous -Tissue Removed Subcutaneous Subcutaneous -Post Debridement (cm) - Length 3.0 4.0 -Post Debridement (cm) - Width 3.0 2.7 -Post Debridement (cm) - Depth 0.1 0.2 -Total Square (Post) (cm) 9.00 10.80 -Area of Debridement (cm) - Length 3.0 4.0 -Area of Debridement (cm) - Width 3.0 2.7 -Total Square (Area) (cm) 9.00 10.80 -Tunneling No -Undermining/Tunneling No No -Circular Undermining No No -Wound/Ulcer Outcome Not Healed Not Healed -Ulcer Cleansing Rinsed/ Rinsed/ Irrigated with Irrigated with Saline Saline -Foul Odor after Cleansing No No -Bioengineered Tissue No No -Bleeding Controlled with Pressure Pressure -Treatment Response Procedure Tolerated Well -Offloading No No -Debridement - Subq, 1st 20sq cm Yes No Pain Scale: 0-10 Numeric Is Patient Pain Free? Yes Yes WC - Nurse 3 - General Ulcer D/C NN Start: 01/04/23 08:01 Freq: Status: Active Protocol: Activity Type Activity Date Activity User E-sign Co-sign Detail Recorded Client Recorded Date Recorded By Document 01/04/23 08:33 [facility] [id number] 01/04/23 08:34 BMF Document 01/18/23 08:33 MW [id number] 01/18/23 08:34 MW 01/04/23 01/18/23 08:33 08:33 Wound Care Center Nurse 3 #11 Medial Inferior LLE -Other Dressing abd w/ tape. pt going home to shower -Primary Dressing Covered/Secured with Secured with Tape #10 Left Medial Ankle -Ulcer Cleansing Rinsed/ Irrigated with Saline -Foul Odor after Cleansing No -Negative Pressure Wound Therapy N/A -Other Dressing abd; pt going home to shower. -Primary Dressing Covered/Secured with Secured with Tape -Other Covering abd pad ble -Lotion applied to leg before No compression wrap -Stockings Yes -Other pt applies own compression stockings Treatment Response Procedure Procedure Tolerated Well Tolerated Well Pain Scale: 0-10 Numeric Is Patient Pain Free? Yes Yes Teaching: Wound Center Dressing Your Wound -Person Taught Patient -Teaching Method Discussion, Demonstration -Response to teaching Verbalize understanding WC - Visit Discharge Discharge Condition Stable Stable Ambulatory Status Ambulatory Ambulatory Transportation Private Auto Private Auto Accompanied by self Medication Reconcilliation completed & No provided to patient/care provider Clinical Summary of Care Provided Yes Assessment/Plan Assessment/Plan (1) Ulcer of left lower extremity with fat layer exposed: CODE(S): L97.922 - Non-pressure chronic ulcer of unspecified part of left lower leg with fat layer exposed (2) PVD (peripheral vascular disease): CODE(S): I73.9 - Peripheral vascular disease, unspecified (3) Chronic venous insufficiency: CODE(S): I87.2 - Venous insufficiency (chronic) (peripheral) (4) Delayed wound healing: CODE(S): T14.8XXD - Other injury of unspecified body region, subsequent encounter PLAN: Plan Debridement done as documented above, procedure was well-tolerated. Improving. Continue Aquacel and care max to left medial ankle ulcer. Left lower extremity ulcer is healed. Moisturize both lower extremities using Vaseline. Continue mupirocin ointment as well. Continue use of compression stockings, leg elevation and exercise. Increased protein intake, protein supplements, zinc andvitamin C also recommended. Continue multivitamins. His questions were answered and he was advised to call with any further questions or concerns. Follow-up in 2 weeks. This note was generated with [employer] software. It may contain incorrectwords, spelling, and punctuation that were not noted in checking the note beforesigning. 01/18/23 8988 <Electronically signed by Alice Amaya MD> Cosigner Signature (if applicable): CC: ~ Signed [facility] Work Phone: 1(299) 819-125403-09-[address] Amaya [facility] January 04, 2023 8:34am Note Date/Time January 04, 2023 8:34 am [facility] [address] [place] [address] Progress Note - Wound Care 01/04/23 0832 MR#: [id number] Acct: [id number] Name: RUBEN ALLEN Jr. Rep #:[id number] 01 : 1965 57 From: Alice dickerson MD PCP: Dr. George Frausto MD Status :REG RCR Location: History of Present Illness Date of Service: 01/04/23 Chief Complaint: ulcers to the left lower leg History of Wound: This is a 54-year-old male presents to wound healing center with a long-standing history of chronic venous insufficiency, chronic venous hypertension, lower extremity edema, lower extremity pain, and chronic left lower extremity ulcer. 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 He is currently wearing graduated compression stockings which are documented to be 20-30 mmHg compression and these are thigh high. He reports great compliance with use. Heis also had previous arterial work-up with no intervention recommended by letter, his vascular surgeon. He denies taking nutritional supplementation. [facility] and had a biopsy of the ulcer site. He also was previously treated by infectious disease for various contaminations and infections. He is not antibiotics at this time nor does he have any redness or odor coming from the wound. He denies fever, chill, nausea, vomiting, loss of appetite. 05/18/22: Mr. Allen presents with a new right lower extremity ulceration. He states that this has been present for months and he has been trying to manage itat home without any significant improvement. Opened up months ago, no known precipitating factor. Has been applying wound dressings without any significantimprovement. He reports increased drainage. Denies significant pain. No chills, fever or feeling of unwell. Progress of Wound: No acute concerns at this time. Doing dressing changes as recommended. Left inferior with minimal ulceration left Objective Data Objective Data Vital Signs: Vital Signs Temp Pulse Resp BP Pulse Ox O2 Del Method 97.3 F L 92 16 143/81 H 99 Room Air 01/04/23 08:01 01/04/23 08:01 01/04/23 08:01 01/04/23 08:01 12/27/22 00:19 01/04/23 08:01 Oxygen Delivery Method Room Air Body Mass Index (BMI) 31.4 Charges/Coding Procedures Integumentary 111xxx-113xx: 57144 Lakeisha subq tissue 20 sq cm/< Physical Exam Const alert, oriented x3 and no apparent distress General Appearance: cooperative and comfortable Orientation / Consciousness: awake HEENT normocephalic Head and Scalp: normal to inspection, normocephalic and atraumatic Face and Sinus: normal facial exam Eyes EOMs intact bilaterally Neck full ROM and supple General: normal visual inspection Resp normal respiratory effort Effort and Inspection: able to speak in complete sentences GI non-tender Extremity normal to inspection General Extremity: edema Skin Wounds: wounds noted Neuro oriented x3 and CN's II-XII intact bilaterally Psych mental status grossly normal Appearance: grossly normal Debridement Note Debridement Note Wound debrided: Left medial ankle Type of Debridement: Excisional debridement Anesthesia Used: 5% Lidocaine Gel Depth: Down to and including healthy tissue and in the subcutaneous layer Percentage of wound debrided: 100 Instrument Used: 5mm curette Tissue Removed: Slough and devitalized tissue Severity: Fat Layer Exposed Amount of bleeding with debridement: Mild Bleeding Controlled with: Pressure Patient tolerated procedure: Patient tolerated procedure well Post-Debridement Measurements and Additional Note: Post-Debridement Measurements/Treatment [facility] Nurse 1 - General Ulcer Assessment Start: 01/04/23 08:01 Freq: Status: Active Protocol: SHANTA Activity Type Activity Date Activity User E-sign Co-sign Detail Recorded Client Recorded Date Recorded By Document 01/04/23 08:01 [facility] [id number] 01/04/23 08:07 [facility] 01/04/23 08:01 - Today's Visit Information Type of service Follow-up Visit (Physician/SUPERVISOR CHANNEL PROCESS ) Arrival Mode Ambulatory Transfer Assistance None Patient Identification Verified (Name & Yes ) Patient Requires Transmission-Based No Precautions Height and Weight Body Mass Index (BMI) 31.4 BMI Classification Obese Vital Signs Temperature (97.8 F-99.1 F) 97.3 F L Temperature Source Temporal Pulse Rate (60-100) 92 Pulse Location Monitor Respiratory Rate (12-18) 16 Respiratory rate source Observation Oxygen Delivery Method Room Air Blood Pressure (90/60-120/80) 143/81 H Blood Pressure Mean (mm Hg) 101 Source Monitor Position Sitting Blood Pressure Location Right Arm History Since Last Visit- (Skip if this is Patient's initial visit) Have you changed medications since your No last visit? Any new allergies or adverse reactions No Had a fall/change in ADL's that may No increase risk of falls Signs or symptoms of abuse and/or No neglect since last visit Have you been in the hospital since your No last visit? Has dressing in place as prescribed Yes Has compression in place as prescribed Yes Has offloadiing in place as prescribed N/A Experienced any changes in pain level or No management Left Footwear Regular Shoe Right Footwear Regular Shoe Pain Scale: 0-10 Numeric Is Patient Pain Free? Yes WC - Nurse 1 - General Ulcer Measurement Start: 01/04/23 08:01 Freq: Status: Active Protocol: Activity Type Activity Date Activity User E-sign Co-sign Detail Recorded Client Recorded Date Recorded By Document 01/04/23 08:01 [facility] [id number] 01/04/23 08:07 [facility] 01/04/23 08:01 Wound Center Nurse 1 #11 Medial Inferior LLE -Combined with other wound No -Current Size (cm) - Length 0.2 -Current Size (cm) - Width 0.2 -Current Size (cm) - Depth 0.1 -Total Square Cm 0.04 -Date of Last Picture (Recall this 01/04/23 field) -Photo Taken Yes -Epithelialization None Present -Tunneling No -Undermining/Tunneling No -Circular Undermining No -Exudate Amt Small -Exudate Type Serous -Wound Margin Distinct, Outline Attached -Granulation Amt Small (1-33%) -Granulation Quality Red -Slough/Fibrin Yes -Necrosis Amt Large (67-100%) -Necrotic Tissue Type Adherent Slough -Texture (Ara-wound Skin Appearance) Assessed, Scarring -Moisture (Ara-wound Skin Appearance) Assessed,Dry/ Scaly -Color (Ara-wound Skin Appearance) Assessed, Hemosiderin Staining -Temperature (Ara-wound Skin No Abnormality Appearance) (Pt Warm) -Tenderness on Palpation (Ara-wound No Skin Appearance) -Ulcer Cleansing Soap and Water -Foul Odor after Cleansing No -Anesthetic Used 5% Lidocaine Gel #10 Left Medial Ankle -Combined with other wound No -Current Size (cm) - Length 4.5 -Current Size (cm) - Width 3.3 -Current Size (cm) - Depth 0.2 -Total Square Cm 14.85 -Date of Last Picture (Recall this 01/04/23 field) -Photo Taken Yes -Epithelialization None Present -Tunneling No -Undermining/Tunneling No -Circular Undermining No -Exudate Amt Medium -Exudate Type Serous -Wound Margin Distinct, Outline Attached -Granulation Amt None Present (0 %) -Slough/Fibrin Yes -Necrosis Amt Large (67-100%) -Necrotic Tissue Type Adherent Slough -Texture (Ara-wound Skin Appearance) Assessed, Scarring -Moisture (Ara-wound Skin Appearance) Assessed -Color (Ara-wound Skin Appearance) Assessed, Hemosiderin Staining -Temperature (Ara-wound Skin No Abnormality Appearance) (Pt Warm) -Tenderness on Palpation (Ara-wound No Skin Appearance) -Ulcer Cleansing Soap and Water -Foul Odor after Cleansing Yes, Due to Product Use -Anesthetic Used 5% Lidocaine Gel Right Calf (cm) 37 Right Ankle (cm) 22 Left Calf (cm) 36 Left Ankle (cm) 25.5 WC - Nurse 2 - General Ulcer CM Notes Start: 01/04/23 08:01 Freq: Status: Active Protocol: Activity Type Activity Date Activity User E-sign Co-sign Detail Recorded Client Recorded Date Recorded By Document 01/04/23 08:22 CARLOS [id number] 01/04/23 08:28 CARLOS 01/04/23 08:22 Wound Center Nurse 2 #11 Medial Inferior LLE -Time 08:22 -Correct Patient Yes -Correct Side, Site, Position Yes -Correct Procedure Yes -Procedure Performed Yes -Type of Procedure Debridement -Clinical Debridement Subcutaneous -Tissue Removed Subcutaneous -Post Debridement (cm) - Length 0.1 -Post Debridement (cm) - Width 0.1 -Post Debridement (cm) - Depth 0.1 -Total Square (Post) (cm) 0.01 -Area of Debridement (cm) - Length 0.1 -Area of Debridement (cm) - Width 0.1 -Total Square (Area) (cm) 0.01 -Tunneling No -Undermining/Tunneling No -Circular Undermining No -Wound/Ulcer Outcome Not Healed -Ulcer Cleansing Rinsed/ Irrigated with Saline -Foul Odor after Cleansing No -Bioengineered Tissue No -Bleeding Controlled with Pressure -Treatment Response Procedure Tolerated Well -Offloading No -Debridement - Subq, 1st 20sq cm No #10 Left Medial Ankle -Time 08:23 -Correct Patient Yes -Correct Side, Site, Position Yes -Correct Procedure Yes -Procedure Performed Yes -Type of Procedure Debridement -Clinical Debridement Subcutaneous -Tissue Removed Subcutaneous -Post Debridement (cm) - Length 3.0 -Post Debridement (cm) - Width 3.0 -Post Debridement (cm) - Depth 0.1 -Total Square (Post) (cm) 9.00 -Area of Debridement (cm) - Length 3.0 -Area of Debridement (cm) - Width 3.0 -Total Square (Area) (cm) 9.00 -Undermining/Tunneling No -Circular Undermining No -Wound/Ulcer Outcome Not Healed -Ulcer Cleansing Rinsed/ Irrigated with Saline -Foul Odor after Cleansing No -Bioengineered Tissue No -Bleeding Controlled with Pressure -Offloading No -Debridement - Subq, 1st 20sq cm Yes Pain Scale: 0-10 Numeric Is Patient Pain Free? Yes Additional Wound Wound debrided: Left lower extremity inferior Type of Debridement: Excisional debridement Anesthesia Used: 5% Lidocaine Gel Depth: Down to and including healthy tissue and in the subcutaneous layer Percentage of wound debrided: 100 Instrument Used: 5mm curette Tissue Removed: Slough and devitalized tissue Severity: Fat Layer Exposed Amount of bleeding with debridement: Mild Bleeding Controlled with: Pressure Patient tolerated procedure: Patient tolerated procedure well Assessment/Plan Assessment/Plan (1) Ulcer of left lower extremity with fat layer exposed: CODE(S): L97.922 - Non-pressure chronic ulcer of unspecified part of left lower leg with fat layer exposed (2) Ulcer of right lower extremity with fat layer exposed: CODE(S): L97.912 - Non-pressure chronic ulcer of unspecified part of rightlower leg with fat layer exposed (3) PVD (peripheral vascular disease): CODE(S): I73.9 - Peripheral vascular disease, unspecified (4) Chronic venous insufficiency: CODE(S): I87.2 - Venous insufficiency (chronic) (peripheral) (5) Delayed wound healing: CODE(S): T14.8XXD - Other injury of unspecified body region, subsequent encounter PLAN: Plan Debridement done as documented above, procedure was well-tolerated. Stable. Continue Aquacel and care max to all left lower extremity ulcers. Change daily to twice daily depending on drainage. Moisturize both lower extremities using Vaseline. Copious amount of Vaseline to the right lower extremity, cover with ABD. Continue mupirocin ointment as well. Continue use of compression stockings, leg elevation and exercise. Increased protein intake, protein supplements, zinc and vitamin C also recommended. Continue multivitamins. His questions were answered and he was advised to call with any further questions orconcerns. Follow-up in 2 weeks. This note was generated with [employer] dictation software. It may contain incorrectwords, spelling, and punctuation that were not noted in checking the note beforesigning. 01/04/23 0834 <Electronically signed by Alice Amaya MD> Cosigner Signature (if applicable): CC: ~ Signed [facility] Work Phone: [phone] 344-194802-28-2023 Miscellaneous Notes* Telephone Encounter - Maine Salazar LPN - 12/26/2022 2:36 PM EST Patient phones requesting refills as follows: Requested Prescriptions Pending Prescriptions Disp Refills atorvastatin (LIPITOR) 20 mg tablet 90 tablet 0 Sig: Take 1 tablet by mouth daily at bedtime. For cholesterol. hydroCHLOROthiazide (HYDRODIURIL, ESIDRIX) 25 mg tablet 90 tablet 0 Sig: Take 1 tablet by mouth once daily. SVEN: 10/28/22 NOV: 05/02/23 Last Refill: Both meds: 09/27/22 #90 0 refills Maine Salazar LPN * Telephone Encounter - Ally Aquino - 12/26/2022 12:39 PM EST Pharmacy verified in [facility] Patient has been identified by name and date of : Yes Patient aware RX will be sent to pharmacy. No need to notify patient. Patient phones for refill(s): Requested Prescriptions Pending Prescriptions Disp Refills atorvastatin (LIPITOR) 20 mg tablet 90 tablet 0 Sig: Take 1 tablet by mouth daily at bedtime. For cholesterol. hydroCHLOROthiazide (HYDRODIURIL, ESIDRIX) 25 mg tablet 90 tablet 0 Sig: Take 1 tablet by mouth once daily. Date of last office visit : 10/28/2022 Date of next office visit : 05/02/2023 Last 2 Encounter Wt Readings: Date: Wt: 10/28/2022 115.3 kg (254 lb 3.2 oz) 03/17/2022 112.5 kg (248 lb) Please advise. Ally Pickens Pss [facility] Amaya [facility] December 21, 2022 8:38am Note Date/Time December 21, 2022 8:38am [facility] [address] [place] [id number] Progress Note - Wound Care 12/21/22 0836 MR#: [id number] Acct: [id number] Name: RUBEN ALLEN JrJohnnie Rep #:[id number] 05 : 1965 57 From: Alice dickerson MD PCP: Dr. George Frausto MD Status :REG R Location: History of Present Illness Date of Service: 12/21/22 Chief Complaint: ulcers to the left lower leg History of Wound: This is a 54-year-old male presents to wound healing center with a long-standing history of chronic venous insufficiency, chronic venous hypertension, lower extremity edema, lower extremity pain, and chronic left lower extremity ulcer. 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 He is currently wearing graduated compression stockings which are documented to be 20-30 mmHg compression and these are thigh high. He reports great compliance with use. Heis also had previous arterial work-up with no intervention recommended by letter, his vascular surgeon. He denies taking nutritional supplementation. [place] [facility] and had a biopsy of the ulcer site. He also was previously treated by infectious disease for various contaminations and infections. He is not antibiotics at this time nor does he have any redness or odor coming from the wound. He denies fever, chill, nausea, vomiting, loss of appetite. 05/18/22: Mr. Allen presents with a new right lower extremity ulceration. He states that this has been present for months and he has been trying to manage itat home without any significant improvement. Opened up months ago, no known precipitating factor. Has been applying wound dressings without any significantimprovement. He reports increased drainage. Denies significant pain. No chills, fever or feeling of unwell. Progress of Wound: Stable ulcers, no new concerns at this time. Objective Data Objective Data Vital Signs: Vital Signs Temp Pulse Resp BP Pulse Ox O2 Del Method 98 F 95 16 155/77 H 99 Room Air 12/21/22 08:06 12/21/22 08:06 12/21/22 08:06 12/21/22 08:06 11/29/22 00:26 12/21/22 08:06 Oxygen Delivery Method Room Air Body Mass Index (BMI) 31.4 Charges/Coding Procedures Integumentary 111xxx-113xx: 14460 [place] subq tissue 20 sq cm/< Physical Exam Const alert, oriented x3 and no apparent distress General Appearance: cooperative and comfortable Orientation / Consciousness: awake HEENT normocephalic Head and Scalp: normal to inspection, normocephalic and atraumatic Face and Sinus: normal facial exam Eyes EOMs intact bilaterally Neck full ROM and supple General: normal visual inspection Resp normal respiratory effort Effort and Inspection: able to speak in complete sentences GI non-tender Extremity normal to inspection General Extremity: edema Skin Wounds: wounds noted Neuro oriented x3 and CN's II-XII intact bilaterally Psych mental status grossly normal Appearance: grossly normal Debridement Note Debridement Note Wound debrided: Left medial ankle Type of Debridement: Excisional debridement Anesthesia Used: 5% Lidocaine Gel Depth: Down to and including healthy tissue and in the subcutaneous layer Percentage of wound debrided: 100 Instrument Used: 5mm curette Tissue Removed: Slough and devitalized tissue Severity: Fat Layer Exposed Amount of bleeding with debridement: Mild Bleeding Controlled with: Pressure Patient tolerated procedure: Patient tolerated procedure well Post-Debridement Measurements and Additional Note: Post-Debridement Measurements/Treatment - Nurse 1 - General Ulcer Assessment Start: 11/30/22 08:50 Freq: Status: Active Protocol: SHANTA Activity Type Activity Date Activity User E-sign Co-sign Detail Recorded Client Recorded Date Recorded By Document 11/30/22 08:50 BMF [id number] 11/30/22 09:00 BMF Document 12/14/22 08:38 DL [id number] 12/14/22 08:49 DL Document 12/21/22 08:06 BMF [id number] 12/21/22 08:12 BMF 11/30/22 12/14/22 12/21/22 08:50 08:38 08:06 - Today's Visit Information Type of service Follow-up Visit Follow-up Visit Follow-up Visit (Physician/SUPERVISOR CHANNEL PROCESS (Physician/SUPERVISOR CHANNEL PROCESS (Physician/SUPERVISOR CHANNEL PROCESS ) ) ) Arrival Mode Ambulatory Ambulatory Ambulatory Transfer Assistance None None None Patient Identification Verified (Name & Yes Yes Yes ) Patient Requires Transmission-Based No No No Precautions Height and Weight Body Mass Index (BMI) 31.4 31.4 31.4 BMI Classification Obese Obese Obese Vital Signs Temperature (97.8 F-99.1 F) 97.8 F 97.1 F L 98 F Temperature Source Temporal Temporal Temporal Pulse Rate (60-100) 85 90 95 Pulse Location Monitor Monitor Monitor Respiratory Rate (12-18) 16 20 H 16 Respiratory rate source Observation Observation Observation Oxygen Delivery Method Room Air Room Air Blood Pressure (90/60-120/80) 152/79 H 161/91 H 155/77 H Blood Pressure Mean (mm Hg) 103 114 103 Source Monitor Monitor Monitor Position Sitting Sitting Blood Pressure Location Right Arm Right Arm History Since Last Visit- (Skip if this is Patient's initial visit) Have you changed medications since your No No No last visit? Any new allergies or adverse reactions No No No Had a fall/change in ADL's that may No No No increase risk of falls Signs or symptoms of abuse and/or No No No neglect since last visit Have you been in the hospital since your No No No last visit? Has dressing in place as prescribed Yes Yes Yes Has compression in place as prescribed Yes Yes Yes Has offloadiing in place as prescribed N/A N/A N/A Experienced any changes in pain level or No No No management Left Footwear Regular Shoe Regular Shoe Right Footwear Regular Shoe Regular Shoe Pain Scale: 0-10 Numeric Is Patient Pain Free? Yes Yes Yes WC - Nurse 1 - General Ulcer Measurement Start: 11/30/22 08:50 Freq: Status: Active Protocol: Activity Type Activity Date Activity User E-sign Co-sign Detail Recorded Client Recorded Date Recorded By Document 11/30/22 08:50 BMF [id number] 11/30/22 09:00 BMF Document 12/14/22 08:38 DL [id number] 12/14/22 08:49 DL Document 12/21/22 08:06 BMF [id number] 12/21/22 08:12 BMF 11/30/22 12/14/22 12/21/22 08:50 08:38 08:06 Wound Center Nurse 1 #15 R Med Ankle -Combined with other wound No No -Current Size (cm) - Length 0.1 0.1 0.1 -Current Size (cm) - Width 0.1 0.1 0.1 -Current Size (cm) - Depth 0.1 0.1 0.1 -Total Square Cm 0.01 0.01 0.01 -Date of Last Picture (Recall this 11/30/22 12/21/22 field) -Photo Taken Yes No Yes -Epithelialization Large 67-100% Large 67-100% -Tunneling No -Undermining/Tunneling No -Circular Undermining No -Exudate Amt Small None Present -Exudate Type Serous -Wound Margin Flat & Intact Flat & Intact -Granulation Amt Large (67-100%) Small (1-33%) -Granulation Quality [place] -Slough/Fibrin No -Necrosis Amt Small (1-33%) None Present (0 %) -Necrotic Tissue Type Adherent Slough -Structure Exposed N/A -Texture (Ara-wound Skin Appearance) Assessed, Scarring Assessed, Scarring Scarring -Moisture (Ara-wound Skin Appearance) Assessed,Dry/ Dry/Scaly Assessed,Dry/ Scaly Scaly -Color (Ara-wound Skin Appearance) Assessed Hemosiderin Assessed, Staining Hemosiderin Staining -Temperature (Ara-wound Skin No Abnormality No Abnormality No Abnormality Appearance) (Pt Warm) (Pt Warm) (Pt Warm) -Tenderness on Palpation (Ara-wound No No No Skin Appearance) -Ulcer Cleansing Rinsed/ Not Cleansed Rinsed/ Irrigated with Irrigated with Saline Saline -Foul Odor after Cleansing No No No -Anesthetic Used 5% Lidocaine 5% Lidocaine 5% Lidocaine Gel Gel Gel #11 Medial Inferior LLE -Combined with other wound No No -Current Size (cm) - Length 1.5 1.1 0.4 -Current Size (cm) - Width 0.9 0.2 0.2 -Current Size (cm) - Depth 0.1 0.1 0.1 -Total Square Cm 1.35 0.22 0.08 -Date of Last Picture (Recall this 11/30/22 12/21/22 field) -Photo Taken Yes No Yes -Epithelialization Small 1-33% Medium 34-66% -Tunneling No No -Undermining/Tunneling No No -Circular Undermining No No -Exudate Amt Small Small Small -Exudate Type Serosanguineous Serosanguineous Serous -Wound Margin Distinct, Distinct, Distinct, Outline Outline Outline Attached Attached Attached -Granulation Amt Medium (34-66%) Large (67-100%) Large (67-100%) -Granulation Quality Red [place] Red -Slough/Fibrin Yes No -Necrosis Amt Medium (34-66%) Small (1-33%) None Present (0 %) -Necrotic Tissue Type Adherent Slough Adherent Slough -Structure Exposed N/A -Texture (Ara-wound Skin Appearance) Assessed, Scarring Assessed, Scarring Scarring -Moisture (Ara-wound Skin Appearance) Assessed,Dry/ Dry/Scaly Assessed,Dry/ Scaly Scaly -Color (Ara-wound Skin Appearance) Assessed, Hemosiderin Assessed, Hemosiderin Staining Hemosiderin Staining Staining -Temperature (Ara-wound Skin No Abnormality No Abnormality No Abnormality Appearance) (Pt Warm) (Pt Warm) (Pt Warm) -Tenderness on Palpation (Ara-wound No No No Skin Appearance) -Ulcer Cleansing Rinsed/ Soap and Water Rinsed/ Irrigated with Irrigated with Saline Saline -Foul Odor after Cleansing No No No -Anesthetic Used 5% Lidocaine 5% Lidocaine 5% Lidocaine Gel Gel Gel #10 Left Medial Ankle -Combined with other wound No No -Current Size (cm) - Length 4.7 4.4 4.2 -Current Size (cm) - Width 3.3 2.8 2.8 -Current Size (cm) - Depth 0.2 0.3 0.2 -Total Square Cm 15.51 12.32 11.76 -Date of Last Picture (Recall this 11/30/22 12/21/22 field) -Photo Taken Yes No Yes -Epithelialization None Present None Present -Tunneling No No -Undermining/Tunneling No No -Circular Undermining No No -Exudate Amt Medium Medium Medium -Exudate Type Serosanguineous Serosanguineous Serosanguineous -Wound Margin Distinct, Distinct, Thickened Outline Outline Attached Attached -Granulation Amt Medium (34-66%) Medium (34-66%) Small (1-33%) -Granulation Quality Red Red [place] -Slough/Fibrin Yes Yes -Necrosis Amt Medium (34-66%) Medium (34-66%) Large (67-100%) -Necrotic Tissue Type Adherent Slough Adherent Slough Adherent Slough -Structure Exposed N/A -Texture (Ara-wound Skin Appearance) Assessed, Scarring Assessed, Scarring Scarring -Moisture (Ara-wound Skin Appearance) Assessed,Dry/ Dry/Scaly Assessed,Dry/ Scaly Scaly -Color (Ara-wound Skin Appearance) Assessed, Hemosiderin Assessed, Hemosiderin Staining Hemosiderin Staining Staining -Temperature (Ara-wound Skin No Abnormality No Abnormality No Abnormality Appearance) (Pt Warm) (Pt Warm) (Pt Warm) -Tenderness on Palpation (Ara-wound No No Skin Appearance) -Ulcer Cleansing Rinsed/ Soap and Water Rinsed/ Irrigated with Irrigated with Saline Saline -Foul Odor after Cleansing No No No -Anesthetic Used 5% Lidocaine 5% Lidocaine 5% Lidocaine Gel Gel Gel Right Calf (cm) 36.7 37.2 37 Right Ankle (cm) 21.7 22 22 Left Calf (cm) 35.7 35.5 35.2 Left Ankle (cm) 22.8 23.1 23.2 WC - Nurse 2 - General Ulcer CM Notes Start: 11/30/22 08:50 Freq: Status: Active Protocol: Activity Type Activity Date Activity User E-sign Co-sign Detail Recorded Client Recorded Date Recorded By Document 11/30/22 09:24 MW [id number] 11/30/22 09:36 MW Document 12/14/22 09:21 MW [id number] 12/14/22 09:28 MW Document 12/21/22 08:20 MW [id number] 12/21/22 08:31 MW 11/30/22 12/14/22 12/21/22 09:24 09:21 08:20 Wound Center Nurse 2 #15 R Med Ankle -Time 09: 09:21 08:20 -Correct Patient Yes Yes Yes -Correct Side, Site, Position Yes Yes Yes -Correct Procedure Yes Yes Yes -Procedure Performed Yes No No -Type of Procedure Debridement -Clinical Debridement Subcutaneous -Tissue Removed Subcutaneous -Post Debridement (cm) - Length 0.9 0.1 0 -Post Debridement (cm) - Width 0.2 0.1 0 -Post Debridement (cm) - Depth 0.1 0.1 0 -Total Square (Post) (cm) 0.18 0.01 0 -Area of Debridement (cm) - Length 0.9 -Area of Debridement (cm) - Width 0.2 -Total Square (Area) (cm) 0.18 -Tunneling No No No -Undermining/Tunneling No No No -Circular Undermining No No No -Wound/Ulcer Outcome Not Healed Not Healed Healed- Epithelialized -Ulcer Cleansing Rinsed/ Not Cleansed Irrigated with Saline -Foul Odor after Cleansing No -Bioengineered Tissue No -Bleeding Controlled with Pressure -Treatment Response Procedure Tolerated Well -Offloading No -Debridement - Subq, 1st 20sq cm Yes #11 Medial Inferior LLE -Time 09: 09:22 08:21 -Correct Patient Yes Yes Yes -Correct Side, Site, Position Yes Yes Yes -Correct Procedure Yes Yes Yes -Procedure Performed Yes Yes Yes -Type of Procedure Debridement Debridement Debridement -Clinical Debridement Subcutaneous Subcutaneous Subcutaneous -Tissue Removed Subcutaneous Subcutaneous Subcutaneous -Post Debridement (cm) - Length 1.8 1.5 1.4 -Post Debridement (cm) - Width 0.4 0.3 0.4 -Post Debridement (cm) - Depth 0.1 0.1 0.1 -Total Square (Post) (cm) 0.72 0.45 0.56 -Area of Debridement (cm) - Length 1.8 1.5 1.4 -Area of Debridement (cm) - Width 0.4 0.3 0.4 -Total Square (Area) (cm) 0.72 0.45 0.56 -Tunneling No No No -Undermining/Tunneling No No No -Circular Undermining No No No -Wound/Ulcer Outcome Not Healed Not Healed Not Healed -Ulcer Cleansing Rinsed/ Rinsed/ Rinsed/ Irrigated with Irrigated with Irrigated with Saline Saline Saline -Foul Odor after Cleansing No No No -Bioengineered Tissue No No No -Bleeding Controlled with Pressure Pressure Pressure -Treatment Response Procedure Tolerated Well -Offloading No No No -Debridement - Subq, 1st 20sq cm No Yes Yes #10 Left Medial Ankle -Time 09:26 09:22 08:22 -Correct Patient Yes Yes Yes -Correct Side, Site, Position Yes Yes Yes -Correct Procedure Yes Yes Yes -Procedure Performed Yes Yes Yes -Type of Procedure Debridement Debridement Debridement -Clinical Debridement Subcutaneous Subcutaneous Subcutaneous -Tissue Removed Subcutaneous Subcutaneous Subcutaneous -Post Debridement (cm) - Length 3.5 3.4 3.5 -Post Debridement (cm) - Width 3.0 3.0 3.0 -Post Debridement (cm) - Depth 0.2 0.2 0.2 -Total Square (Post) (cm) 10.50 10.20 10.50 -Area of Debridement (cm) - Length 3.5 3.4 3.5 -Area of Debridement (cm) - Width 3.0 3.0 3.0 -Total Square (Area) (cm) 10.50 10.20 10.50 -Tunneling No No No -Undermining/Tunneling No No No -Circular Undermining No No No -Wound/Ulcer Outcome Not Healed Not Healed Not Healed -Ulcer Cleansing Rinsed/ Rinsed/ Rinsed/ Irrigated with Irrigated with Irrigated with Saline Saline Saline -Foul Odor after Cleansing No No No -Bioengineered Tissue No No No -Bleeding Controlled with Pressure Pressure Pressure -Treatment Response Procedure Procedure Procedure Tolerated Well Tolerated Well Tolerated Well -Offloading No No No -Debridement - Subq, 1st 20sq cm No No No Pain Scale: 0-10 Numeric Is Patient Pain Free? Yes Yes Yes WC - Nurse 3 - General Ulcer D/C NN Start: 11/30/22 08:50 Freq: Status: Active Protocol: Activity Type Activity Date Activity User E-sign Co-sign Detail Recorded Client Recorded Date Recorded By Document 11/30/22 09:45 BMF [id number] 11/30/22 09:46 BMF Document 12/14/22 09:36 DL [id number] 12/14/22 09:38 DL 11/30/22 12/14/22 09:45 09:36 Wound Care Center Nurse 3 #15 R Med Ankle -Ulcer Cleansing Rinsed/ Rinsed/ Irrigated with Irrigated with Saline Saline -Foul Odor after Cleansing No No -Primary Dressing Applied NonAdherent NonAdherent Contact Layer Contact Layer -Other Dressing abd -Primary Dressing Covered/Secured with Secured with Dry Gauze, Tape Secured with Tape #11 Medial Inferior LLE -Ulcer Cleansing Rinsed/ Rinsed/ Irrigated with Irrigated with Saline Saline -Foul Odor after Cleansing No No -Primary Dressing Applied Aquacel AG 4x4 -Other Dressing bactroban, bactroban/ kerramax kerramax/ aquacel ag -Primary Dressing Covered/Secured with Dry Gauze -Aquacel AG 4x4 1 #10 Left Medial Ankle -Ulcer Cleansing Rinsed/ Rinsed/ Irrigated with Irrigated with Saline Saline -Foul Odor after Cleansing No No -Primary Dressing Applied Aquacel AG 4x4 -Other Dressing bactroban, bactroban, kerramax aqaucel ag, kerramax -Primary Dressing Covered/Secured with Secured with Dry Gauze Tape -Aquacel AG 4x4 0 BLE -Stockings Yes -Other PT APPLIED OWN COMPRESSION STOCKINGS Treatment Response Procedure Procedure Tolerated Well Tolerated Well Pain Scale: 0-10 Numeric Is Patient Pain Free? Yes Yes WC - Visit Discharge Discharge Condition Stable Stable Ambulatory Status Ambulatory Ambulatory Transportation Private Auto Private Auto Additional Wound Wound debrided: Left lower extremity inferior Type of Debridement: Excisional debridement Anesthesia Used: 5% Lidocaine Gel Depth: Down to and including healthy tissue and in the subcutaneous layer Percentage of wound debrided: 100 Instrument Used: 5mm curette Tissue Removed: Slough and devitalized tissue Severity: Fat Layer Exposed Amount of bleeding with debridement: Mild Bleeding Controlled with: Pressure Patient tolerated procedure: Patient tolerated procedure well Assessment/Plan Assessment/Plan (1) Ulcer of left lower extremity with fat layer exposed: CODE(S): L97.922 - Non-pressure chronic ulcer of unspecified part of left lower leg with fat layer exposed (2) Ulcer of right lower extremity with fat layer exposed: CODE(S): L97.912 - Non-pressure chronic ulcer of unspecified part of rightlower leg with fat layer exposed (3) PVD (peripheral vascular disease): CODE(S): I73.9 - Peripheral vascular disease, unspecified (4) Chronic venous insufficiency: CODE(S): I87.2 - Venous insufficiency (chronic) (peripheral) (5) Delayed wound healing: CODE(S): T14.8XXD - Other injury of unspecified body region, subsequent encounter PLAN: Plan Debridement done as documented above, procedure was well-tolerated. Stable. Continue Aquacel and care max to all left lower extremity ulcers. Change daily to twice daily depending on drainage. Adaptic and gauze to right lower extremity ulcer. Continue mupirocin ointment as well. Continue use of compression stockings, leg elevation and exercise. Increased protein intake, protein supplements, zinc and vitamin C also recommended. Continue multivitamins. His questions were answered and he was advised to call with anyfurther questions or concerns. Follow-up in 1 week. This note was generated with IntelliDOT dictation software. It may contain incorrectwords, spelling, and punctuation that were not noted in checking the note beforesigning. 12/21/22 0838 <Electronically signed by Alice Amaya MD> Cosigner Signature (if applicable): CC: ~ Signed [facility] Work Phone: [phone] Amaya [facility] December 14, 2022 10:04am Note Date/Time December 14, 2022 10:04am [facility] [address] [place] [address] Progress Note - Wound Care 12/14/22 1001 MR#: [id number] Acct: [id number] Name: RUBEN ALLEN JrJohnnie Rep #:[id number] : 1965 57 From: Alice dickerson MD PCP: Dr. George Frausto MD Status :REG RCR Location: History of Present Illness Date of Service: 12/14/22 Chief Complaint: ulcers to the left lower leg History of Wound: This is a 54-year-old male presents to wound healing center with a long-standing history of chronic venous insufficiency, chronic venous hypertension, lower extremity edema, lower extremity pain, and chronic left lower extremity ulcer. 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 He is currently wearing graduated compression stockings which are documented to be 20-30 mmHg compression and these are thigh high. He reports great compliance with use. Heis also had previous arterial work-up with no intervention recommended by letter, his vascular surgeon. He denies taking nutritional supplementation. [facility] and had a biopsy of the ulcer site. He also was previously treated by infectious disease for various contaminations and infections. He is not antibiotics at this time nor does he have any redness or odor coming from the wound. He denies fever, chill, nausea, vomiting, loss of appetite. 05/18/22: Mr. Allen presents with a new right lower extremity ulceration. He states that this has been present for months and he has been trying to manage itat home without any significant improvement. Opened up months ago, no known precipitating factor. Has been applying wound dressings without any significantimprovement. He reports increased drainage. Denies significant pain. No chills, fever or feeling of unwell. Progress of Wound: Improving ulcers, no new concerns at this time. Objective Data Objective Data Vital Signs: Vital Signs Temp Pulse Resp BP Pulse Ox O2 Del Method 97.1 F L 90 20 H 161/91 H 99 Room Air 12/14/22 08:38 12/14/22 08:38 12/14/22 08:38 12/14/22 08:38 11/29/22 00:26 11/30/22 08:50 Oxygen Delivery Method Room Air Body Mass Index (BMI) 31.4 Charges/Coding Procedures Integumentary 111xxx-113xx: 97916 Lakeisha subq tissue 20 sq cm/< Physical Exam Const alert, oriented x3 and no apparent distress General Appearance: cooperative and comfortable Orientation / Consciousness: awake HEENT normocephalic Head and Scalp: normal to inspection, normocephalic and atraumatic Face and Sinus: normal facial exam Eyes EOMs intact bilaterally Neck full ROM and supple General: normal visual inspection Resp normal respiratory effort Effort and Inspection: able to speak in complete sentences GI non-tender Extremity normal to inspection General Extremity: edema Skin Wounds: wounds noted Neuro oriented x3 and CN's II-XII intact bilaterally Psych mental status grossly normal Appearance: grossly normal Debridement Note Debridement Note Wound debrided: Left medial ankle Type of Debridement: Excisional debridement Anesthesia Used: 5% Lidocaine Gel Depth: Down to and including healthy tissue and in the subcutaneous layer Percentage of wound debrided: 100 Instrument Used: 5mm curette Tissue Removed: Slough and devitalized tissue Severity: Fat Layer Exposed Amount of bleeding with debridement: Mild Bleeding Controlled with: Pressure Patient tolerated procedure: Patient tolerated procedure well Post-Debridement Measurements and Additional Note: Post-Debridement Measurements/Treatment - Nurse 1 - General Ulcer Assessment Start: 11/30/22 08:50 Freq: Status: Active Protocol: SHANTA Activity Type Activity Date Activity User E-sign Co-sign Detail Recorded Client Recorded Date Recorded By Document 11/30/22 08:50 [facility] [id number] 11/30/22 09:00 BMF Document 12/14/22 08:38 DL [id number] 12/14/22 08:49 DL 11/30/22 12/14/22 08:50 08:38 - Today's Visit Information Type of service Follow-up Visit Follow-up Visit (Physician/SUPERVISOR CHANNEL PROCESS (Physician/SUPERVISOR CHANNEL PROCESS ) ) Arrival Mode Ambulatory Ambulatory Transfer Assistance None None Patient Identification Verified (Name & Yes Yes ) Patient Requires Transmission-Based No No Precautions Height and Weight Body Mass Index (BMI) 31.4 31.4 BMI Classification Obese Obese Vital Signs Temperature (97.8 F-99.1 F) 97.8 F 97.1 F L Temperature Source Temporal Temporal Pulse Rate (60-100) 85 90 Pulse Location Monitor Monitor Respiratory Rate (12-18) 16 20 H Respiratory rate source Observation Observation Oxygen Delivery Method Room Air Blood Pressure (90/60-120/80) 152/79 H 161/91 H Blood Pressure Mean (mm Hg) 103 114 Source Monitor Monitor Position Sitting Blood Pressure Location Right Arm History Since Last Visit- (Skip if this is Patient's initial visit) Have you changed medications since your No No last visit? Any new allergies or adverse reactions No No Had a fall/change in ADL's that may No No increase risk of falls Signs or symptoms of abuse and/or No No neglect since last visit Have you been in the hospital since your No No last visit? Has dressing in place as prescribed Yes Yes Has compression in place as prescribed Yes Yes Has offloadiing in place as prescribed N/A N/A Experienced any changes in pain level or No No management Left Footwear Regular Shoe Right Footwear Regular Shoe Pain Scale: 0-10 Numeric Is Patient Pain Free? Yes Yes WC - Nurse 1 - General Ulcer Measurement Start: 11/30/22 08:50 Freq: Status: Active Protocol: Activity Type Activity Date Activity User E-sign Co-sign Detail Recorded Client Recorded Date Recorded By Document 11/30/22 08:50 [facility] [id number] 11/30/22 09:00 BMF Document 12/14/22 08:38 DL [id number] 12/14/22 08:49 DL 11/30/22 12/14/22 08:50 08:38 Wound Center Nurse 1 #15 R Med Ankle -Combined with other wound No -Current Size (cm) - Length 0.1 0.1 -Current Size (cm) - Width 0.1 0.1 -Current Size (cm) - Depth 0.1 0.1 -Total Square Cm 0.01 0.01 -Date of Last Picture (Recall this 11/30/22 field) -Photo Taken Yes No -Epithelialization Large 67-100% -Tunneling No -Undermining/Tunneling No -Circular Undermining No -Exudate Amt Small None Present -Exudate Type Serous -Wound Margin Flat & Intact Flat & Intact -Granulation Amt Large (67-100%) Small (1-33%) -Granulation Quality [place] -Slough/Fibrin No -Necrosis Amt Small (1-33%) None Present (0 %) -Necrotic Tissue Type Adherent Slough -Structure Exposed N/A -Texture (Ara-wound Skin Appearance) Assessed, Scarring Scarring -Moisture (Ara-wound Skin Appearance) Assessed,Dry/ Dry/Scaly Scaly -Color (Ara-wound Skin Appearance) Assessed Hemosiderin Staining -Temperature (Ara-wound Skin No Abnormality No Abnormality Appearance) (Pt Warm) (Pt Warm) -Tenderness on Palpation (Ara-wound No No Skin Appearance) -Ulcer Cleansing Rinsed/ Not Cleansed Irrigated with Saline -Foul Odor after Cleansing No No -Anesthetic Used 5% Lidocaine 5% Lidocaine Gel Gel #11 Medial Inferior LLE -Combined with other wound No -Current Size (cm) - Length 1.5 1.1 -Current Size (cm) - Width 0.9 0.2 -Current Size (cm) - Depth 0.1 0.1 -Total Square Cm 1.35 0.22 -Date of Last Picture (Recall this 11/30/22 field) -Photo Taken Yes No -Epithelialization Small 1-33% -Tunneling No -Undermining/Tunneling No -Circular Undermining No -Exudate Amt Small Small -Exudate Type Serosanguineous Serosanguineous -Wound Margin Distinct, Distinct, Outline Outline Attached Attached -Granulation Amt Medium (34-66%) Large (67-100%) -Granulation Quality Red [place] -Slough/Fibrin Yes -Necrosis Amt Medium (34-66%) Small (1-33%) -Necrotic Tissue Type Adherent Slough Adherent Slough -Structure Exposed N/A -Texture (Ara-wound Skin Appearance) Assessed, Scarring Scarring -Moisture (Ara-wound Skin Appearance) Assessed,Dry/ Dry/Scaly Scaly -Color (Ara-wound Skin Appearance) Assessed, Hemosiderin Hemosiderin Staining Staining -Temperature (Ara-wound Skin No Abnormality No Abnormality Appearance) (Pt Warm) (Pt Warm) -Tenderness on Palpation (Ara-wound No No Skin Appearance) -Ulcer Cleansing Rinsed/ Soap and Water Irrigated with Saline -Foul Odor after Cleansing No No -Anesthetic Used 5% Lidocaine 5% Lidocaine Gel Gel #10 Left Medial Ankle -Combined with other wound No -Current Size (cm) - Length 4.7 4.4 -Current Size (cm) - Width 3.3 2.8 -Current Size (cm) - Depth 0.2 0.3 -Total Square Cm 15.51 12.32 -Date of Last Picture (Recall this 11/30/22 field) -Photo Taken Yes No -Epithelialization None Present -Tunneling No -Undermining/Tunneling No -Circular Undermining No -Exudate Amt Medium Medium -Exudate Type Serosanguineous Serosanguineous -Wound Margin Distinct, Distinct, Outline Outline Attached Attached -Granulation Amt Medium (34-66%) Medium (34-66%) -Granulation Quality Red Red -Slough/Fibrin Yes -Necrosis Amt Medium (34-66%) Medium (34-66%) -Necrotic Tissue Type Adherent Slough Adherent Slough -Structure Exposed N/A -Texture (Ara-wound Skin Appearance) Assessed, Scarring Scarring -Moisture (Ara-wound Skin Appearance) Assessed,Dry/ Dry/Scaly Scaly -Color (Ara-wound Skin Appearance) Assessed, Hemosiderin Hemosiderin Staining Staining -Temperature (Ara-wound Skin No Abnormality No Abnormality Appearance) (Pt Warm) (Pt Warm) -Tenderness on Palpation (Ara-wound No Skin Appearance) -Ulcer Cleansing Rinsed/ Soap and Water Irrigated with Saline -Foul Odor after Cleansing No No -Anesthetic Used 5% Lidocaine 5% Lidocaine Gel Gel Right Calf (cm) 36.7 37.2 Right Ankle (cm) 21.7 22 Left Calf (cm) 35.7 35.5 Left Ankle (cm) 22.8 23.1 WC - Nurse 2 - General Ulcer CM Notes Start: 11/30/22 08:50 Freq: Status: Active Protocol: Activity Type Activity Date Activity User E-sign Co-sign Detail Recorded Client Recorded Date Recorded By Document 11/30/22 09:24 MW [id number] 11/30/22 09:36 MW Document 12/14/22 09:21 MW [id number] 12/14/22 09:28 MW 11/30/22 12/14/22 09:24 09:21 Wound Center Nurse 2 #15 R Med Ankle -Time 09:25 09:21 -Correct Patient Yes Yes -Correct Side, Site, Position Yes Yes -Correct Procedure Yes Yes -Procedure Performed Yes No -Type of Procedure Debridement -Clinical Debridement Subcutaneous -Tissue Removed Subcutaneous -Post Debridement (cm) - Length 0.9 0.1 -Post Debridement (cm) - Width 0.2 0.1 -Post Debridement (cm) - Depth 0.1 0.1 -Total Square (Post) (cm) 0.18 0.01 -Area of Debridement (cm) - Length 0.9 -Area of Debridement (cm) - Width 0.2 -Total Square (Area) (cm) 0.18 -Tunneling No No -Undermining/Tunneling No No -Circular Undermining No No -Wound/Ulcer Outcome Not Healed Not Healed -Ulcer Cleansing Rinsed/ Not Cleansed Irrigated with Saline -Foul Odor after Cleansing No -Bioengineered Tissue No -Bleeding Controlled with Pressure -Treatment Response Procedure Tolerated Well -Offloading No -Debridement - Subq, 1st 20sq cm Yes #11 Medial Inferior LLE -Time : -Correct Patient Yes Yes -Correct Side, Site, Position Yes Yes -Correct Procedure Yes Yes -Procedure Performed Yes Yes -Type of Procedure Debridement Debridement -Clinical Debridement Subcutaneous Subcutaneous -Tissue Removed Subcutaneous Subcutaneous -Post Debridement (cm) - Length 1.8 1.5 -Post Debridement (cm) - Width 0.4 0.3 -Post Debridement (cm) - Depth 0.1 0.1 -Total Square (Post) (cm) 0.72 0.45 -Area of Debridement (cm) - Length 1.8 1.5 -Area of Debridement (cm) - Width 0.4 0.3 -Total Square (Area) (cm) 0.72 0.45 -Tunneling No No -Undermining/Tunneling No No -Circular Undermining No No -Wound/Ulcer Outcome Not Healed Not Healed -Ulcer Cleansing Rinsed/ Rinsed/ Irrigated with Irrigated with Saline Saline -Foul Odor after Cleansing No No -Bioengineered Tissue No No -Bleeding Controlled with Pressure Pressure -Treatment Response Procedure Tolerated Well -Offloading No No -Debridement - Subq, 1st 20sq cm No Yes #10 Left Medial Ankle -Time 09:22 -Correct Patient Yes Yes -Correct Side, Site, Position Yes Yes -Correct Procedure Yes Yes -Procedure Performed Yes Yes -Type of Procedure Debridement Debridement -Clinical Debridement Subcutaneous Subcutaneous -Tissue Removed Subcutaneous Subcutaneous -Post Debridement (cm) - Length 3.5 3.4 -Post Debridement (cm) - Width 3.0 3.0 -Post Debridement (cm) - Depth 0.2 0.2 -Total Square (Post) (cm) 10.50 10.20 -Area of Debridement (cm) - Length 3.5 3.4 -Area of Debridement (cm) - Width 3.0 3.0 -Total Square (Area) (cm) 10.50 10.20 -Tunneling No No -Undermining/Tunneling No No -Circular Undermining No No -Wound/Ulcer Outcome Not Healed Not Healed -Ulcer Cleansing Rinsed/ Rinsed/ Irrigated with Irrigated with Saline Saline -Foul Odor after Cleansing No No -Bioengineered Tissue No No -Bleeding Controlled with Pressure Pressure -Treatment Response Procedure Procedure Tolerated Well Tolerated Well -Offloading No No -Debridement - Subq, 1st 20sq cm No No Pain Scale: 0-10 Numeric Is Patient Pain Free? Yes Yes - Nurse 3 - General Ulcer D/C NN Start: 11/30/22 08:50 Freq: Status: Active Protocol: Activity Type Activity Date Activity User E-sign Co-sign Detail Recorded Client Recorded Date Recorded By Document 11/30/22 09:45 BMF [id number] 11/30/22 09:46 BMF Document 12/14/22 09:36 DL [id number] 12/14/22 09:38 DL 11/30/22 12/14/22 09:45 09:36 Wound Care Center Nurse 3 #15 R Med Ankle -Ulcer Cleansing Rinsed/ Rinsed/ Irrigated with Irrigated with Saline Saline -Foul Odor after Cleansing No No -Primary Dressing Applied NonAdherent NonAdherent Contact Layer Contact Layer -Other Dressing abd -Primary Dressing Covered/Secured with Secured with Dry Gauze, Tape Secured with Tape #11 Medial Inferior LLE -Ulcer Cleansing Rinsed/ Rinsed/ Irrigated with Irrigated with Saline Saline -Foul Odor after Cleansing No No -Primary Dressing Applied Aquacel AG 4x4 -Other Dressing bactroban, bactroban/ kerramax kerramax/ aquacel ag -Primary Dressing Covered/Secured with Dry Gauze -Aquacel AG 4x4 1 #10 Left Medial Ankle -Ulcer Cleansing Rinsed/ Rinsed/ Irrigated with Irrigated with Saline Saline -Foul Odor after Cleansing No No -Primary Dressing Applied Aquacel AG 4x4 -Other Dressing bactroban, bactroban, kerramax aqaucel ag, kerramax -Primary Dressing Covered/Secured with Secured with Dry Gauze Tape -Aquacel AG 4x4 0 BLE -Stockings Yes -Other PT APPLIED OWN COMPRESSION STOCKINGS Treatment Response Procedure Procedure Tolerated Well Tolerated Well Pain Scale: 0-10 Numeric Is Patient Pain Free? Yes Yes - Visit Discharge Discharge Condition Stable Stable Ambulatory Status Ambulatory Ambulatory Transportation Private Auto Private Auto Additional Wound Wound debrided: Left lower extremity inferior Type of Debridement: Excisional debridement Anesthesia Used: 4% Lidocaine Solution Depth: Down to and including healthy tissue and in the subcutaneous layer Percentage of wound debrided: 100 Instrument Used: 5mm curette Tissue Removed: Slough and devitalized tissue Severity: Fat Layer Exposed Amount of bleeding with debridement: Mild Bleeding Controlled with: Pressure Patient tolerated procedure: Patient tolerated procedure well Assessment/Plan Assessment/Plan (1) Ulcer of left lower extremity with fat layer exposed: CODE(S): L97.922 - Non-pressure chronic ulcer of unspecified part of left lower leg with fat layer exposed (2) Ulcer of right lower extremity with fat layer exposed: CODE(S): L97.912 - Non-pressure chronic ulcer of unspecified part of rightlower leg with fat layer exposed (3) PVD (peripheral vascular disease): CODE(S): I73.9 - Peripheral vascular disease, unspecified (4) Chronic venous insufficiency: CODE(S): I87.2 - Venous insufficiency (chronic) (peripheral) (5) Delayed wound healing: CODE(S): T14.8XXD - Other injury of unspecified body region, subsequent encounter PLAN: Plan Debridement done as documented above, procedure was well-tolerated. Improving, only minimal area on the right lower extremity. Continue Aquacel and care max to all left lower extremity ulcers. Change daily to twice daily depending on drainage. Adaptic and gauze to right lower extremity ulcer. Continue mupirocinointment as well. Continue use of compression stockings, leg elevation and exercise. Increased protein intake, protein supplements, zinc and vitamin C also recommended. Continue multivitamins. His questions were answered and he was advised to call with any further questions or concerns. Follow-up in 1 week. This note was generated with IntelliDOT dictation software. It may contain incorrectwords, spelling, and punctuation that were not noted in checking the note beforesigning. 12/14/22 1004 <Electronically signed by Alice Amaya MD> Cosigner Signature (if applicable): CC: ~ Signed [facility] Work Phone: 1(256) 205-144302-02-[address] [facility] November 30, 2022 10:50am Note Date/Time November 30, 2022 1 0:47am [facility] [address] [place] [address] Progress Note - Wound Care 11/30/22 1044 MR#: [id number] Acct: [id number] Name: RUBEN ALLEN Jr. Rep #:[id number] : 1965 57 From: Alice dickerson MD PCP: Dr. George Frausto MD Status :REG RCR Location: History of Present Illness Date of Service: 11/30/22 Chief Complaint: ulcers to the left lower leg History of Wound: This is a 54-year-old male presents to wound healing center with a long-standing history of chronic venous insufficiency, chronic venous hypertension, lower extremity edema, lower extremity pain, and chronic left lower extremity ulcer. 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 He is currently wearing graduated compression stockings which are documented to be 20-30 mmHg compression and these are thigh high. He reports great compliance with use. Heis also had previous arterial work-up with no intervention recommended by letter, his vascular surgeon. He denies taking nutritional supplementation. [place] [facility] and had a biopsy of the ulcer site. He also was previously treated by infectious disease for various contaminations and infections. He is not antibiotics at this time nor does he have any redness or odor coming from the wound. He denies fever, chill, nausea, vomiting, loss of appetite. 05/18/22: Mr. Allen presents with a new right lower extremity ulceration. He states that this has been present for months and he has been trying to manage itat home without any significant improvement. Opened up months ago, no known precipitating factor. Has been applying wound dressings without any significantimprovement. He reports increased drainage. Denies significant pain. No chills, fever or feeling of unwell. Progress of Wound: Improving ulcers, no new concerns at this time. Objective Data Objective Data Vital Signs: Vital Signs Temp Pulse Resp BP Pulse Ox O2 Del Method 97.8 F 85 16 152/79 H 99 Room Air 11/30/22 08:50 11/30/22 08:50 11/30/22 08:50 11/30/22 08:50 11/29/22 00:26 11/30/22 08:50 Oxygen Delivery Method Room Air Body Mass Index (BMI) 31.4 Charges/Coding Procedures Integumentary 111xxx-113xx: 93436 Lakeisha subq tissue 20 sq cm/< Physical Exam Const alert, oriented x3 and no apparent distress General Appearance: cooperative and comfortable Orientation / Consciousness: awake HEENT normocephalic Head and Scalp: normal to inspection, normocephalic and atraumatic Face and Sinus: normal facial exam Eyes EOMs intact bilaterally Neck full ROM and supple General: normal visual inspection Resp normal respiratory effort Effort and Inspection: able to speak in complete sentences GI non-tender Extremity normal to inspection General Extremity: edema Skin Wounds: wounds noted Neuro oriented x3 and CN's II-XII intact bilaterally Psych mental status grossly normal Appearance: grossly normal Debridement Note Debridement Note Wound debrided: Right Lower Extremity Type of Debridement: Excisional debridement Anesthesia Used: 4% Lidocaine Solution Depth: Down to and including healthy tissue and in the subcutaneous layer Percentage of wound debrided: 100 Instrument Used: 3mm curette Tissue Removed: Slough and devitalized tissue Severity: Fat Layer Exposed Amount of bleeding with debridement: Mild Bleeding Controlled with: Pressure Patient tolerated procedure: Patient tolerated procedure well Post-Debridement Measurements and Additional Note: Post-Debridement Measurements/Treatment - Nurse 1 - General Ulcer Assessment Start: 11/30/22 08:50 Freq: Status: Active Protocol: SHANTA Activity Type Activity Date Activity User E-sign Co-sign Detail Recorded Client Recorded Date Recorded By Document 11/30/22 08:50 [facility] [id number] 11/30/22 09:00 [facility] 11/30/22 08:50 - Today's Visit Information Type of service Follow-up Visit (Physician/SUPERVISOR CHANNEL PROCESS ) Arrival Mode Ambulatory Transfer Assistance None Patient Identification Verified (Name & Yes ) Patient Requires Transmission-Based No Precautions Height and Weight Body Mass Index (BMI) 31.4 BMI Classification Obese Vital Signs Temperature (97.8 F-99.1 F) 97.8 F Temperature Source Temporal Pulse Rate (60-100) 85 Pulse Location Monitor Respiratory Rate (12-18) 16 Respiratory rate source Observation Oxygen Delivery Method Room Air Blood Pressure (90/60-120/80) 152/79 H Blood Pressure Mean (mm Hg) 103 Source Monitor Position Sitting Blood Pressure Location Right Arm History Since Last Visit- (Skip if this is Patient's initial visit) Have you changed medications since your No last visit? Any new allergies or adverse reactions No Had a fall/change in ADL's that may No increase risk of falls Signs or symptoms of abuse and/or No neglect since last visit Have you been in the hospital since your No last visit? Has dressing in place as prescribed Yes Has compression in place as prescribed Yes Has offloadiing in place as prescribed N/A Experienced any changes in pain level or No management Left Footwear Regular Shoe Right Footwear Regular Shoe Pain Scale: 0-10 Numeric Is Patient Pain Free? Yes WC - Nurse 1 - General Ulcer Measurement Start: 11/30/22 08:50 Freq: Status: Active Protocol: Activity Type Activity Date Activity User E-sign Co-sign Detail Recorded Client Recorded Date Recorded By Document 11/30/22 08:50 [facility] [id number] 11/30/22 09:00 [facility] 11/30/22 08:50 Wound Center Nurse 1 #15 R Med Ankle -Combined with other wound No -Current Size (cm) - Length 0.1 -Current Size (cm) - Width 0.1 -Current Size (cm) - Depth 0.1 -Total Square Cm 0.01 -Date of Last Picture (Recall this 11/30/22 field) -Photo Taken Yes -Epithelialization Large 67-100% -Tunneling No -Undermining/Tunneling No -Circular Undermining No -Exudate Amt Small -Exudate Type Serous -Wound Margin Flat & Intact -Granulation Amt Large (67-100%) -Granulation Quality [place] -Slough/Fibrin No -Necrosis Amt Small (1-33%) -Necrotic Tissue Type Adherent Slough -Texture (Ara-wound Skin Appearance) Assessed, Scarring -Moisture (Ara-wound Skin Appearance) Assessed,Dry/ Scaly -Color (Ara-wound Skin Appearance) Assessed -Temperature (Ara-wound Skin No Abnormality Appearance) (Pt Warm) -Tenderness on Palpation (Ara-wound No Skin Appearance) -Ulcer Cleansing Rinsed/ Irrigated with Saline -Foul Odor after Cleansing No -Anesthetic Used 5% Lidocaine Gel #11 Medial Inferior LLE -Combined with other wound No -Current Size (cm) - Length 1.5 -Current Size (cm) - Width 0.9 -Current Size (cm) - Depth 0.1 -Total Square Cm 1.35 -Date of Last Picture (Recall this 11/30/22 field) -Photo Taken Yes -Epithelialization Small 1-33% -Tunneling No -Undermining/Tunneling No -Circular Undermining No -Exudate Amt Small -Exudate Type Serosanguineous -Wound Margin Distinct, Outline Attached -Granulation Amt Medium (34-66%) -Granulation Quality Red -Slough/Fibrin Yes -Necrosis Amt Medium (34-66%) -Necrotic Tissue Type Adherent Slough -Texture (Ara-wound Skin Appearance) Assessed, Scarring -Moisture (Ara-wound Skin Appearance) Assessed,Dry/ Scaly -Color (Ara-wound Skin Appearance) Assessed, Hemosiderin Staining -Temperature (Ara-wound Skin No Abnormality Appearance) (Pt Warm) -Tenderness on Palpation (Ara-wound No Skin Appearance) -Ulcer Cleansing Rinsed/ Irrigated with Saline -Foul Odor after Cleansing No -Anesthetic Used 5% Lidocaine Gel #10 Left Medial Ankle -Combined with other wound No -Current Size (cm) - Length 4.7 -Current Size (cm) - Width 3.3 -Current Size (cm) - Depth 0.2 -Total Square Cm 15.51 -Date of Last Picture (Recall this 11/30/22 field) -Photo Taken Yes -Epithelialization None Present -Tunneling No -Undermining/Tunneling No -Circular Undermining No -Exudate Amt Medium -Exudate Type Serosanguineous -Wound Margin Distinct, Outline Attached -Granulation Amt Medium (34-66%) -Granulation Quality Red -Slough/Fibrin Yes -Necrosis Amt Medium (34-66%) -Necrotic Tissue Type Adherent Slough -Texture (Ara-wound Skin Appearance) Assessed, Scarring -Moisture (Ara-wound Skin Appearance) Assessed,Dry/ Scaly -Color (Ara-wound Skin Appearance) Assessed, Hemosiderin Staining -Temperature (Ara-wound Skin No Abnormality Appearance) (Pt Warm) -Tenderness on Palpation (Ara-wound No Skin Appearance) -Ulcer Cleansing Rinsed/ Irrigated with Saline -Foul Odor after Cleansing No -Anesthetic Used 5% Lidocaine Gel Right Calf (cm) 36.7 Right Ankle (cm) 21.7 Left Calf (cm) 35.7 Left Ankle (cm) 22.8 WC - Nurse 2 - General Ulcer CM Notes Start: 11/30/22 08:50 Freq: Status: Active Protocol: Activity Type Activity Date Activity User E-sign Co-sign Detail Recorded Client Recorded Date Recorded By Document 11/30/22 09:24 MW [id number] 11/30/22 09:36 MW 11/30/22 09:24 Wound Center Nurse 2 #15 R Med Ankle -Time 09:25 -Correct Patient Yes -Correct Side, Site, Position Yes -Correct Procedure Yes -Procedure Performed Yes -Type of Procedure Debridement -Clinical Debridement Subcutaneous -Tissue Removed Subcutaneous -Post Debridement (cm) - Length 0.9 -Post Debridement (cm) - Width 0.2 -Post Debridement (cm) - Depth 0.1 -Total Square (Post) (cm) 0.18 -Area of Debridement (cm) - Length 0.9 -Area of Debridement (cm) - Width 0.2 -Total Square (Area) (cm) 0.18 -Tunneling No -Undermining/Tunneling No -Circular Undermining No -Wound/Ulcer Outcome Not Healed -Ulcer Cleansing Rinsed/ Irrigated with Saline -Foul Odor after Cleansing No -Bioengineered Tissue No -Bleeding Controlled with Pressure -Treatment Response Procedure Tolerated Well -Offloading No -Debridement - Subq, 1st 20sq cm Yes #11 Medial Inferior LLE -Time 09:26 -Correct Patient Yes -Correct Side, Site, Position Yes -Correct Procedure Yes -Procedure Performed Yes -Type of Procedure Debridement -Clinical Debridement Subcutaneous -Tissue Removed Subcutaneous -Post Debridement (cm) - Length 1.8 -Post Debridement (cm) - Width 0.4 -Post Debridement (cm) - Depth 0.1 -Total Square (Post) (cm) 0.72 -Area of Debridement (cm) - Length 1.8 -Area of Debridement (cm) - Width 0.4 -Total Square (Area) (cm) 0.72 -Tunneling No -Undermining/Tunneling No -Circular Undermining No -Wound/Ulcer Outcome Not Healed -Ulcer Cleansing Rinsed/ Irrigated with Saline -Foul Odor after Cleansing No -Bioengineered Tissue No -Bleeding Controlled with Pressure -Offloading No -Debridement - Subq, 1st 20sq cm No #10 Left Medial Ankle -Time 09:26 -Correct Patient Yes -Correct Side, Site, Position Yes -Correct Procedure Yes -Procedure Performed Yes -Type of Procedure Debridement -Clinical Debridement Subcutaneous -Tissue Removed Subcutaneous -Post Debridement (cm) - Length 3.5 -Post Debridement (cm) - Width 3.0 -Post Debridement (cm) - Depth 0.2 -Total Square (Post) (cm) 10.50 -Area of Debridement (cm) - Length 3.5 -Area of Debridement (cm) - Width 3.0 -Total Square (Area) (cm) 10.50 -Tunneling No -Undermining/Tunneling No -Circular Undermining No -Wound/Ulcer Outcome Not Healed -Ulcer Cleansing Rinsed/ Irrigated with Saline -Foul Odor after Cleansing No -Bioengineered Tissue No -Bleeding Controlled with Pressure -Treatment Response Procedure Tolerated Well -Offloading No -Debridement - Subq, 1st 20sq cm No Pain Scale: 0-10 Numeric Is Patient Pain Free? Yes WC - Nurse 3 - General Ulcer D/C NN Start: 11/30/22 08:50 Freq: Status: Active Protocol: Activity Type Activity Date Activity User E-sign Co-sign Detail Recorded Client Recorded Date Recorded By Document 11/30/22 09:45 [facility] [id number] 11/30/22 09:46 [facility] 11/30/22 09:45 Wound Care Center Nurse 3 #15 R Med Ankle -Ulcer Cleansing Rinsed/ Irrigated with Saline -Foul Odor after Cleansing No -Primary Dressing Applied NonAdherent Contact Layer -Other Dressing abd -Primary Dressing Covered/Secured with Secured with Tape #11 Medial Inferior LLE -Ulcer Cleansing Rinsed/ Irrigated with Saline -Foul Odor after Cleansing No -Primary Dressing Applied Aquacel AG 4x4 -Other Dressing bactroban, kerramax -Aquacel AG 4x4 1 #10 Left Medial Ankle -Ulcer Cleansing Rinsed/ Irrigated with Saline -Foul Odor after Cleansing No -Primary Dressing Applied Aquacel AG 4x4 -Other Dressing bactroban, kerramax -Primary Dressing Covered/Secured with Secured with Tape -Aquacel AG 4x4 0 BLE -Other PT APPLIED OWN COMPRESSION STOCKINGS Treatment Response Procedure Tolerated Well Pain Scale: 0-10 Numeric Is Patient Pain Free? Yes WC - Visit Discharge Discharge Condition Stable Ambulatory Status Ambulatory Transportation Private Auto Additional Wound Wound debrided: Lefr Medial Ankle Type of Debridement: Excisional debridement Anesthesia Used: 4% Lidocaine Solution Depth: Down to and including healthy tissue and in the subcutaneous layer Percentage of wound debrided: 100 Instrument Used: 5mm curette Tissue Removed: Slough and devitalized tissue Severity: Fat Layer Exposed Amount of bleeding with debridement: Mild Bleeding Controlled with: Pressure Patient tolerated procedure: Patient tolerated procedure well Additional Wound Wound debrided: Left lower extremity ( Inferior ) Type of Debridement: Excisional debridement Anesthesia Used: 4% Lidocaine Solution Depth: Down to and including healthy tissue and in the subcutaneous layer Percentage of wound debrided: 100 Instrument Used: 5mm curette Tissue Removed: Slough and devitalized tissue Severity: Fat Layer Exposed Amount of bleeding with debridement: Mild Bleeding Controlled with: Pressure Patient tolerated procedure: Patient tolerated procedure well Assessment/Plan Assessment/Plan (1) Ulcer of left lower extremity with fat layer exposed: CODE(S): L97.922 - Non-pressure chronic ulcer of unspecified part of left lower leg with fat layer exposed (2) Ulcer of right lower extremity with fat layer exposed: CODE(S): L97.912 - Non-pressure chronic ulcer of unspecified part of rightlower leg with fat layer exposed (3) PVD (peripheral vascular disease): CODE(S): I73.9 - Peripheral vascular disease, unspecified (4) Chronic venous insufficiency: CODE(S): I87.2 - Venous insufficiency (chronic) (peripheral) (5) Delayed wound healing: CODE(S): T14.8XXD - Other injury of unspecified body region, subsequent encounter PLAN: Plan Debridement done as documented above, procedure was well-tolerated. Improving. Continue Aquacel and care max to all left lower extremity ulcers. Change daily to twice daily depending on drainage. Adaptic and gauze to right lower extremity ulcer. Continue mupirocin ointment as well. Continue use of compression stockings, leg elevation and exercise. Increased protein intake, protein supplements, zinc and vitamin C also recommended. Continue multivitamins. His questions were answered and he was advised to call with anyfurther questions or concerns. Follow-up in 2 weeks. This note was generated with Dragon dictation software. It may contain incorrectwords, spelling, and punctuation that were not noted in checking the note beforesigning. 11/30/22 1050 <Electronically signed by Alice Amaya MD> Cosigner Signature (if applicable): CC: ~ Signed [facility] Work Phone: [phone] 565-755301-11-2023 Miscellaneous Notes* Telephone Encounter - Magda Tejeda RN - 11/08/2022 1:03 PM EST Spoke with patient. Given message from provider's office. Patient verbalizes understanding. Magda Tejeda RN * Telephone Encounter - Cathy Rhoades LPN - 11/07/2022 5:12 PM EST 2nd attempt at reaching patient. Message left to call office back for update. Two telephone encounters open for patient. Cathy Rhoades LPN * Telephone Encounter - Maine Morfin LPN - 11/02/2022 4:33 PM EST If patient calls please address both telephone encounters with him. * Telephone Encounter - John Brown Ma - 11/01/2022 1:43 PM EST Left message to call office. 11/01/2022 1:43 PM Spoke with lab client services and added A1C. * Telephone Encounter - Adriane Gonzalez RN - 10/31/2022 9:14 AM EST VM message left for pt to call PCP office for message below. Adriane Gonzalez RN * Telephone Encounter - Arvind Frausto MD - 10/31/2022 9:08 AM EST Normal labs aside from high sugar in the 140's when he was not fasting. Will order A1c to screen for diabetes. documented in this encounterOhiohealth01-05-2023 Miscellaneous Notes* Telephone Encounter - Maine Morfin LPN - 11/02/2022 4:32 PM EST If patient calls please address both telephone encounter's with him. * Telephone Encounter - Adriane Gonzalez RN - 11/02/2022 8:32 AM EST VM left for pt to call PCP office for message below. Adriane Gonzalez RN * Telephone Encounter - Bhavana Rosales APRN.CNP - 11/02/2022 8:03 AM EST A1c is 5.9% this is considered prediabetes- recommend lower carbohydrate diet and aim for at least 150 minutes per week. Bhavana Rosales APRN.ALEXEI documented in this encounterOhiohealth12-31-2022 History of Present illness Narrative* Arvind Frausto MD - 10/28/2022 9:07 AM EST Chief Complaint Patient presents with: Physical: 6 month follow up HPI Ruben Allen is a 57 year old male who presents here today for annual physical. HTN: Mr. Allen indicates that he is feeling well and denies any symptoms referable to elevated blood pressure. Specifically denies headache, chest pain, palpitations, dyspnea, and peripheral edema. Patient denies any side effects of his medication(s) and is compliant with their regimen. He does not check BP's generally. Ruben gets minimal exercise. He watches his diet for sodium, low fat and lowcholesterol generally not very much. Last 3 Encounter BP Readings: Date: BP: 10/28/2022 130/68 03/17/2022 118/82[recheck[ 09/13/2021 142/85[BP Ketan average[ Patient following up with wound care Dr. Amaya of chronic LE wounds every 2 weeks. States that wounds are starting to heal up and are planning to glue some of the veins in his left leg. Dressing changes on a daily basis as recommended. Compliant with ASA and Lipitor. Seeing [facility] Vascular surgery for PVD instead of Dr. Cade. Records not available. Wearing compression stockings daily. PHQ-2 / Depression screen He in the past two weeks denies having felt down, depressed, hopeless or with little interest or pleasure in doing things. Did not complete FOBT for colon cancer screening. Would like colonoscopy referral instead. Refusinglung cancer screening today. Refusing Tdap and influenza vaccine. Has not checked into his Shingrix with insurance. Past medical history, appointments, medications, allergies reviewed. Previous Medical History PAST MEDICAL HISTORY Diagnosis Date History of tobacco use Hypertension Obesity PVD (peripheral vascular disease) (HCC) Dr. Cade Wound of left leg wound center [facility], not healing since 2019 Previous Surgical History PAST SURGICAL HISTORY Procedure Laterality Date PAST SURGICAL HISTORY OF Bilateral 2015 vein stripping Family History FAMILY HISTORY Problem Relation Age of Onset Diabetes Father Cancer Father lip Heart disease Father 70 Colon Cancer Sister 42 No Known Problems Brother No Known Problems Brother No Known Problems Sister No Known Problems Sister No Known Problems Sister No Known Problems Sister No Known Problems Sister Patient Allergies ALLERGIES Allergen Reactions Ciprofloxacin Rash Current Medications Current Outpatient Medications on File Prior to Visit Medication Sig atorvastatin (LIPITOR) 20 mg tablet Take 1 tablet by mouth daily at bedtime. For cholesterol. hydroCHLOROthiazide (HYDRODIURIL, ESIDRIX) 25 mg tablet Take 1 tablet by mouth once daily. aspirin, enteric coated (ASPIRIN, ENTERIC COATED) 81 mg EC tablet Take 81 mg by mouth once daily. Ascorbic Acid (VITAMIN C) 100 mg tablet Take 100 mg by mouth once daily. calcium phosphate dibas/vit D3 (VITAMIN D, WITH CALCIUM, ORAL) Take by mouth. Vitamin E, dl, acetate, (VITAMIN E) 100 unit capsule Take 100 Units by mouth once daily. Zinc 50 mg tab Take 1 tablet by mouth once daily. No current facility-administered medications on file prior to visit. Social History Social History Tobacco Use Smoking status: Former Packs/day: 1.00 Years: 38.00 Pack years: 38.00 Types: Cigarettes Quit date: 08/01/2019 Years since quittin.2 Smokeless tobacco: Former Types: Chew Quit date: 07/02/2000 Vaping Use Vaping Use: Never used Substance Use Topics Alcohol use: Yes Alcohol/week: 2.0 standard drinks Types: 2 Cans of Beer (12oz) per week Drug use: Never Review of Symptoms REVIEW OF SYSTEMS GENERAL: No weight loss, malaise or fevers HEENT: Negative for frequent or significant headaches, No changes in hearing or vision, no nose bleeds or other nasal problems NECK: Negative for lumps, goiter, pain and significant neck swelling RESPIRATORY: Negative for cough, hemoptysis, wheezing, COPD, dyspnea or shortness of breath CARDIOVASCULAR: Negative for chest pain, leg swelling, hypertension, CHF or palpitations GI: No nausea, vomiting, or diarrhea : No history of dysuria, frequency or incontinence MUSCULOSKELETAL: Negative for joint pain or swelling, back pain or muscle pain SKIN: Recurrent tinea versicolor rash on chest NEURO: No history of headaches, syncope, paralysis, seizures or tremors EXAM: BP 130/68 Pulse 94 Resp 16 Ht 176 cm (5' 9.29) Wt 115.3 kg (254 lb 3.2 oz) SpO2 97% BMI 37.22 kg/m General Appearance: Well appearing, alert, in no acute distress, well-hydrated, well nourished.. Skin: Tinea versicolor rash on chest and upper abdomen. Head: Normocephalic, no masses, lesions, tenderness or abnormalities. Eyes: Anicteric sclera. Pupils are equally round and reactive to light. Extraocular movements are intact. . Ears: External ears normal, canals clear. Oropharynx: Lips, mucosa, and tongue normal. Multiple broken teeth at the root, dental caries, and gingivitis. Neck: Supple, no adenopathy; thyroid symmetric, normal size, no bruits. Lungs: Lungs clear to auscultation. No wheezing, rhonchi, rales.. Heart: RRR without murmur, gallop, or rubs. No ectopy. Abdomen: Normal abdominal exam, Abdomen soft, non-tender. Bowel sounds normal. No masses, organomegaly. Extremities: Wearing compression stockings with dressings on LE bilaterally in place. Were not removed for this appointment. Health Maintenance List BP CONTROLLED (<130/80) Never done DTAP,TDAP,TD(1 - Tdap) Never done COLORECTAL CANCER SCREENING Never done LUNG CANCER SCREENING Never done SHINGRIX VACCINE(1 of 2) Never done PROSTATE CANCER SCREENING DISCUSSION Never done DEPRESSION ASSESSMENT Never done COVID-19 VACCINE(3 - Booster for Pfizer series) due on 11/08/2021 INFLUENZA(1) Never done ANNUAL PCP TEAM CHRONIC DISEASE VISIT due on 10/28/2023 DIABETES SCREEN due on 03/17/2025 LIPID SCREEN due on 07/01/2026 HEPATITIS C SCREENING Completed HIV SCREENING Completed Data reviewed Component Latest Ref Rng & Units 07/01/2021 03/17/2022 Protein, Total 6.3 - 8.0 g/dL 7.6 8.0 Albumin 3.9 - 4.9 g/dL 4.3 3.8 (L) Calcium 8.5 - 10.2 mg/dL 9.3 9.5 Bilirubin, Total 0.2 - 1.3 mg/dL 0.3 0.3 Alkaline Phosphatase 38 - 113 U/L 93 100 AST 14 - 40 U/L 30 28 Glucose 74 - 99 mg/dL 96 111 (H) BUN 9 - 24 mg/dL 17 19 Creatinine 0.73 - 1.22 mg/dL 1.03 1.13 Sodium 136 - 144 mmol/L 141 140 Potassium 3.7 - 5.1 mmol/L 4.0 3.7 Chloride 97 - 105 mmol/L 107 (H) 105 CO2 22 - 30 mmol/L 23 26 Anion Gap 9 - 18 mmol/L 11 9 ALT 10 - 54 U/L 34 24 eGFR- >60 eGFR-All Other Races . >60 eGFR >=60 mL/min/1.73m 75 WBC 3.70 - 11.00 k/uL 7.74 RBC 4.20 - 6.00 m/uL 4.85 Hemoglobin 13.0 - 17.0 g/dL 14.7 Hematocrit 39.0 - 51.0 % 43.7 MCV 80.0 - 100.0 fL 90.1 MCH 26.0 - 34.0 pG 30.3 MCHC 30.5 - 36.0 g/dL 33.6 RDW-CV 11.5 - 15.0 % 13.1 Platelet Count 150 - 400 k/uL 153 MPV 9.0 - 12.7 fL 12.3 Absolute nRBC <0.01 k/uL <0.01 Total Cholesterol, Nonfasting <200 mg/dL 112 Triglycerides, Nonfasting <150 mg/dL 166 (H) HDL Cholesterol, Nonfasting >39 mg/dL 35 (L) LDL Cholesterol, Nonfasting <100 mg/dL 44 Non HDL Cholesterol, Nonfasting <130 mg/dL 77 VLDL Cholesterol, Nonfasting <30 mg/dL 33 (H) Total Chol/HDL Ratio, Nonfasting <5.10 mg/dL 3.20 LDL/HDL Ratio, Nonfasting <2.54 mg/dL 1.26 ASSESSMENT/PLAN: 1. Annual physical exam - ICD9: V70.0, ICD10: Z00.00 (primary diagnosis) - Counseled on healthy diet and regular exercise - Discussed need for and benefit of weight loss. BMI 37.22 kg/(m^2) - Colorectal cancer screening recommended - agrees to Colonoscopy - Risks/benefits of prostate cancer screening discussed. shared decision to defer testing - Counseled on limiting alcohol intake to 2 drinks per day - Depression screening tool completed and reviewed with patient. Based on score and interview, patient is not at risk for depression and recommended no further intervention at this time. - Follow up for annual exam in one year - COMP METABOLIC PANEL - LIPID PANEL BASIC - CBC + DIFF - DEPRESSION SCREENING/ASSESSMENT 2. Primary hypertension - ICD9: 401.9, ICD10: I10 - good control - Continue current medication(s) - Encouraged dietary sodium restriction/DASH diet - Recommended regular aerobic exercise. - Reviewed risks of HTN and principles of treatment - Goal of BP <140/90 3. Hyperlipidemia, mixed - ICD9: 272.2, ICD10: E78.2 - to be determined upon return of lab results - Continue current medication. - Encouraged following a low fat, low cholesterol diet. - Discussed the benefits of regular aerobic exercise and weight loss. - LIPID PANEL, NONFASTING 4. Wound of left lower extremity, sequela - ICD9: 906.1, ICD10: S81.802S Healing per patient. Recommendations per wound care. 5. Wound of right lower extremity, subsequent encounter - ICD9: V58.89, 894.0, ICD10: S81.801D Healing per patient. Recommendations per wound care. 6. PVD (peripheral vascular disease) (HCC) - ICD9: 443.9, ICD10: I73.9 Asymptomatic. Continue ASA and statin. Obtain records from [facility] vascular surgery and will follow up recommendations. 7. Tinea versicolor - ICD9: 111.0, ICD10: B36.0 Treated successfully several months ago with diflucan. Will repeat treatment. Discussed washing clothes in hot water and dry on high heat. Call if not improving. - FLUCONAZOLE 150 MG TABLET 8. Periodontal disease - ICD9: 523.9, ICD10: K05.6 Has never followed up with a dentist, but has dental insurance now. Will call for appointment. 9. Dental caries - ICD9: 521.00, ICD10: K02.9 10. Screening for colon cancer - ICD9: V76.51, ICD10: Z12.11 - CONSULT TO GENERAL SURGERY Arvind Frausto MD documented in this encounterOhiohealth11-30-2022 Miscellaneous Notes* Telephone Encounter - Fatemeh Gibbs Ma - 09/27/2022 12:48 PM EST Last office visit: 03/17/22 F/u scheduled: 10/28/22 Fatemeh Gibbs Ma * Telephone Encounter - Jane Ray - 09/27/2022 12:45 PM EST Patient has been identified by name and date of : Yes Patient phones for refill(s): Requested Prescriptions Pending Prescriptions Disp Refills atorvastatin (LIPITOR) 20 mg tablet 90 tablet 0 Sig: Take 1 tablet by mouth daily at bedtime. For cholesterol. hydroCHLOROthiazide (HYDRODIURIL, ESIDRIX) 25 mg tablet 90 tablet 0 Sig: Take 1 tablet by mouth once daily. Date of last office visit in primary care: 03/17/22 Last 2 Encounter Wt Readings: Date: Wt: 03/17/2022 112.5 kg (248 lb) 07/01/2021 110.7 kg (244 lb) Previous labs/tests for medication: Not applicable Please advise. Thank you. Jane Ray documented in this encounterOhiohealth05-31-2022 Miscellaneous Notes* Telephone Encounter - CASSIE Wayne - 03/28/2022 11:04 AM EDT SVEN 03/17/2022 Appointment scheduled for 09/22/2022 Please advise. Thank you. CASSIE Wayne * Telephone Encounter - Ally Pickens Pss - 03/28/2022 10:59 AM EDT Pharmacy verified in Epic Patient has been identified by name and date of : Yes Patient aware RX will be sent to pharmacy. No need to notify patient. Patient phones for refill(s): Pending Prescriptions Disp Refills HYDROCHLOROTHIAZIDE 25 MG TABLET 90 tablet 0 Sig: Take 1 tablet by mouth once daily. INOCENTE: No ATORVASTATIN 20 MG TABLET 90 tablet 0 Sig: Take 1 tablet by mouth daily at bedtime. For cholesterol. INOCENTE: No Date of last office visit : 03/17/2022 Date of next office visit : 09/22/2022 Last 2 Encounter Wt Readings: Date: Wt: 03/17/2022 112.5 kg (248 lb) 07/01/2021 110.7 kg (244 lb) Please advise. Ally Pickens Pss documented in this encounterOhiohealth05-24-2022 Miscellaneous Notes* Telephone Encounter - Fatemeh Gibbs Ma - 03/21/2022 2:28 PM EDT Letter mailed to pt home of results. Fatemeh Gibbs MA * Telephone Encounter - Maine Morfin LPN - 03/21/2022 10:12 AM EDT Phoned patient and VM left for patient to return call. Advised to request to speak to a nurse. * Telephone Encounter - Cathy Rhoades LPN - 03/18/2022 10:27 AM EDT Message left to call back for update. Cathy Rhoades LPN * Telephone Encounter - Cathy Rhoades LPN - 03/18/2022 10:27 AM EDT ----- Message from Arvind Frausto MD sent at 03/18/2022 8:06 AM EDT ----- Your lab results are unremarkable. No change to regimen. Please follow up as scheduled. Arvind Frausto MD documented in this encounterOhiohealth05-20-2022 Miscellaneous Notes* Telephone Encounter - Maine Morfin LPN - 03/17/2022 11:16 AM EDT Phoned patient and message left advising of PCP's response on secure VM. * Telephone Encounter - Thanh Mckeon - 03/17/2022 11:06 AM EDT Patient called back and understood instructions. Thank you. * Telephone Encounter - Arvind Frausto MD - 03/17/2022 10:47 AM EDT His order for Diflucan was sent to local pharmacy. He should take weekly for 2 weeks just like before and call if his rash is not improving. * Telephone Encounter - Maine Morfin LPN - 03/17/2022 10:33 AM EDT Patient inquiring if a prescription was sent in for the rash on his arm(s)? I didn't see one and wasn't sure if it had been addressed since he didn't mention to me upon intake. [facility] of Past illness Narrative* Problem Noted Date Resolved Date Overweight (BMI 25.0-29.9) 07/01 documented as of this encounter (statuses as of 03/17/2022) [address]03-2021 History of Past illness Narrative* Problem Noted Date Resolved Date Overweight (BMI 25.0-29.9) 07/01 documented as of this encounter (statuses as of 03/21/2022) [address]03-2021 History of Past illness Narrative* Problem Noted Date Resolved Date Overweight (BMI 25.0-29.9) 07/01 documented as of this encounter (statuses as of 03/28/2022) [address]03-2021 History of Past illness Narrative* Problem Noted Date Resolved Date Overweight (BMI 25.0-29.9) 07/01 documented as of this encounter (statuses as of 09/27/2022) [address]03-2021 History of Past illness Narrative* Problem Noted Date Resolved Date Overweight (BMI 25.0-29.9) 07/01 documented as of this encounter (statuses as of 11/02/2022) [address]03-2021 History of Past illness Narrative* Problem Noted Date Resolved Date Overweight (BMI 25.0-29.9) 07/01 documented as of this encounter (statuses as of 11/03/2022) [address]03-2021 History of Past illness Narrative* Problem Noted Date Resolved Date Overweight (BMI 25.0-29.9) 07/01 documented as of this encounter (statuses as of 11/08/2022) [address]03-2021 History of Past illness Narrative* Problem Noted Date Resolved Date Overweight (BMI 25.0-29.9) 07/01 documented as of this encounter (statuses as of 01/20/2023) [address]03-2021 History of Past illness Narrative* Problem Noted Date Diagnosed Date Resolved Date Overweight (BMI 25.0-29.9) 0 07/01/2021 documented as of this encounter (statuses as of 05/09/2023) [address]03-2021 History of Past illness Narrative* Problem Noted Date Diagnosed Date Resolved Date Overweight (BMI 25.0-29.9) 0 07/01/2021 documented as of this encounter (statuses as of 10/09/2023) [address]03-2021 History of Past illness Narrative* Problem Noted Date Diagnosed Date Resolved Date Overweight (BMI 25.0-29.9) 0 07/01/2021 documented as of this encounter (statuses as of 10/12/2023) [address]03-2021 History of Past illness Narrative* Problem Noted Date Diagnosed Date Resolved Date Overweight (BMI 25.0-29.9) 0 07/01/2021 documented as of this encounter (statuses as of 11/30/2023) [address]03-2021 History of Past illness Narrative* Problem Noted Date Diagnosed Date Resolved Date Overweight (BMI 25.0-29.9) 0 07/01/2021 documented as of this encounter (statuses as of 12/21/2023) [address]03-2021 History of Past illness Narrative* Problem Noted Date Diagnosed Date Resolved Date Overweight (BMI 25.0-29.9) 0 07/01/2021 documented as of this encounter (statuses as of 01/15/2024) [address]03-2021 History of Past illness Narrative* Problem Noted Date Diagnosed Date Resolved Date Overweight (BMI 25.0-29.9) 0 07/01/2021 documented as of this encounter (statuses as of 01/19/2024) [facility] Diagnosis Onset Date Resolution Status Chronic venous insufficiency chronic Delayed wound healing chroni c PVD (peripheral vascular disease) chronic Ulcer of left lower extremity with fat layer exposed chronic Chronic venous insufficiency chronic Delayed wound healing chroni c PVD (peripheral vascular disease) chronic Ulcer of left lower extremity with fat layer exposed chronic Chronic venous insufficiency chronic Delayed wound healing chroni c PVD (peripheral vascular disease) chronic Ulcer of left lower extremity with fat layer exposed chronic Chronic venous insufficiency chronic Delayed wound healing chroni c PVD (peripheral vascular disease) chronic Ulcer of left lower extremity with fat layer exposed chronic [facility] Work Phone: Evaluation note* Diagnosis Essential hypertension Unspecified essential hypertension Hyperlipidemia, mixed Mixed hyperlipidemia [facility]* Diagnosis Onset Date Resolution Status Chronic venous insufficiency chronic Delayed wound healing chroni c PVD (peripheral vascular disease) chronic Ulcer of left lower extremity with fat layer exposed chronic Chronic venous insufficiency chronic Delayed wound healing chroni c PVD (peripheral vascular disease) chronic Ulcer of left lower extremity with fat layer exposed chronic Chronic venous insufficiency chronic Delayed wound healing chroni c PVD (peripheral vascular disease) chronic Ulcer of left lower extremity with fat layer exposed chronic Ulcer of right lower extremity with fat layer exposed acute Chronic venous insufficiency chronic Delayed wound healing chroni c PVD (peripheral vascular disease) chronic Ulcer of left lower extremity with fat layer exposed chronic [facility] Work Phone: Evaluation note* Diagnosis Onset Date Resolution Status Chronic venous insufficiency chronic Delayed wound healing chroni c PVD (peripheral vascular disease) chronic Ulcer of left lower extremity with fat layer exposed chronic Chronic venous insufficiency chronic Delayed wound healing chroni c PVD (peripheral vascular disease) chronic Ulcer of left lower extremity with fat layer exposed chronic Ulcer of right lower extremi ty with fat layer exposed acute Chronic venous insufficiency chronic Delayed wound healing chroni c PVD (peripheral vascular disease) chronic Ulcer of left lower extremity with fat layer exposed chronic Venous stasis of lower extremity chronic Chronic venous hypertension with ulcer noneactive Ulcer of right lower extremi ty with fat layer exposed acute Chronic venous insufficiency chronic Delayed wound healing chroni c PVD (peripheral vascular disease) chronic Ulcer of left lower extremity with fat layer exposed chronic [facility] Work Phone: Evaluation note* Diagnosis Onset Date Resolution Status Chronic venous insufficiency chronic Delayed wound healing chroni c PVD (peripheral vascular disease) chronic Ulcer of left lower extremity with fat layer exposed chronic Ulcer of right lower extremi ty with fat layer exposed acute Chronic venous insufficiency chronic Delayed wound healing chroni c PVD (peripheral vascular disease) chronic Ulcer of left lower extremity with fat layer exposed chronic Venous stasis of lower extremity chronic Chronic venous hypertension with ulcer noneactive Ulcer of right lower extremi ty with fat layer exposed acute Chronic venous insufficiency chronic Delayed wound healing chroni c PVD (peripheral vascular disease) chronic Ulcer of left lower extremity with fat layer exposed chronic Ulcer of right lower extremi ty with fat layer exposed acute Chronic venous insufficiency chronic Delayed wound healing chroni c PVD (peripheral vascular disease) chronic Ulcer of left lower extremity with fat layer exposed chronic [facility] Work Phone: Evaluation note* Diagnosis Onset Date Resolution Status Chronic venous insufficiency chronic Delayed wound healing chroni c PVD (peripheral vascular disease) chronic Ulcer of left lower extremity with fat layer exposed chronic Ulcer of right lower extremi ty with fat layer exposed acute Chronic venous insufficiency chronic Delayed wound healing chroni c PVD (peripheral vascular disease) chronic Ulcer of left lower extremity with fat layer exposed chronic Venous stasis of lower extremity chronic Chronic venous hypertension with ulcer noneactive Ulcer of right lower extremi ty with fat layer exposed acute Chronic venous insufficiency chronic Delayed wound healing chroni c PVD (peripheral vascular disease) chronic Ulcer of left lower extremity with fat layer exposed chronic Ulcer of right lower extremi ty with fat layer exposed acute Chronic venous insufficiency chronic Delayed wound healing chroni c PVD (peripheral vascular disease) chronic Ulcer of left lower extremity with fat layer exposed chronic Venous stasis of lower extremity chronic [facility] Work Phone: Evaluation note* Diagnosis Onset Date Resolution Status Ulcer of right lower extremi ty with fat layer exposed acute Chronic venous insufficiency chronic Delayed wound healing chroni c PVD (peripheral vascular disease) chronic Ulcer of left lower extremity with fat layer exposed chronic Venous stasis of lower extremity chronic Chronic venous hypertension with ulcer noneactive Ulcer of right lower extremi ty with fat layer exposed acute Chronic venous insufficiency chronic Delayed wound healing chroni c PVD (peripheral vascular disease) chronic Ulcer of left lower extremity with fat layer exposed chronic Ulcer of right lower extremi ty with fat layer exposed acute Chronic venous insufficiency chronic Delayed wound healing chroni c PVD (peripheral vascular disease) chronic Ulcer of left lower extremity with fat layer exposed chronic Venous stasis of lower extremity chronic Ulcer of right lower extremi ty with fat layer exposed acute Chronic venous insufficiency chronic Delayed wound healing chroni c PVD (peripheral vascular disease) chronic Ulcer of left lower extremity with fat layer exposed chronic Venous stasis of lower extremity chronic [facility] Work Phone: Evaluation note* Diagnosis Onset Date Resolution Status Ulcer of right lower extremi ty with fat layer exposed acute Chronic venous insufficiency chronic Delayed wound healing chroni c PVD (peripheral vascular disease) chronic Ulcer of left lower extremity with fat layer exposed chronic Venous stasis of lower extremity chronic Chronic venous hypertension with ulcer noneactive Ulcer of right lower extremi ty with fat layer exposed acute Chronic venous insufficiency chronic Delayed wound healing chroni c PVD (peripheral vascular disease) chronic Ulcer of left lower extremity with fat layer exposed chronic Ulcer of right lower extremi ty with fat layer exposed acute Chronic venous insufficiency chronic Delayed wound healing chroni c PVD (peripheral vascular disease) chronic Ulcer of left lower extremity with fat layer exposed chronic Venous stasis of lower extremity chronic Ulcer of right lower extremi ty with fat layer exposed acute Chronic venous insufficiency chronic Delayed wound healing chroni c PVD (peripheral vascular disease) chronic Ulcer of left lower extremity with fat layer exposed chronic Venous stasis of lower extremity chronic Ulcer of right lower extremi ty with fat layer exposed acute Chronic venous insufficiency chronic Delayed wound healing chroni c PVD (peripheral vascular disease) chronic Ulcer of left lower extremity with fat layer exposed chronic [facility] Work Phone: Evaluation note* Diagnosis Hyperlipidemia, mixed Mixed hyperlipidemia Essential hypertension Unspecified essential hypertension [facility] Diagnosis Onset Date Resolution Status Ulcer of right lower extremity with fat layer exposed acute Chronic venous insufficiency chronic Delayed wound healing chroni c PVD (peripheral vascular disease) chronic Ulcer of left lower extremity with fat layer exposed chronic Venous stasis of lower extremity chronic Ulcer of right lower extremity with fat layer exposed acute Chronic venous insufficiency chronic Delayed wound healing chroni c PVD (peripheral vascular disease) chronic Ulcer of left lower extremity with fat layer exposed chronic Venous stasis of lower extremity chronic Ulcer of right lower extremity with fat layer exposed acute Chronic venous insufficiency chronic Delayed wound healing chroni c PVD (peripheral vascular disease) chronic Ulcer of left lower extremity with fat layer exposed chronic Venous stasis of lower extremity chronic Ulcer of right lower extremity with fat layer exposed acute Chronic venous insufficiency chronic Delayed wound healing chroni c PVD (peripheral vascular disease) chronic Ulcer of left lower extremity with fat layer exposed chronic [facility] Work Phone: Evaluation note* Diagnosis Annual physical exam- Primary Routine general medical examination at a health care facility Primary hypertension Unspecified essential hypertension Hyperlipidemia, mixed Mixed hyperlipidemia Wound of left lower extremity, sequela Wound of right lower extremity, subsequent encounter PVD (peripheral vascular disease) ([facility]) Peripheral vascular disease, unspecified Tinea versicolor Pityriasis versicolor Periodontal disease Unspecified gingival and periodontal disease Dental caries Unspecified dental caries Screening for colon cancer Special screening for malignant neoplasms, colon [facility] Diagnosis Hyperglycemia- Primary Other abnormal glucose [facility]* Diagnosis Onset Date Resolution Status Ulcer of right lower extremity with fat layer exposed acute Chronic venous insufficiency chronic Delayed wound healing chroni c PVD (peripheral vascular disease) chronic Ulcer of left lower extremity with fat layer exposed chronic Venous stasis of lower extremity chronic Ulcer of right lower extremity with fat layer exposed acute Chronic venous insufficiency chronic Delayed wound healing chroni c PVD (peripheral vascular disease) chronic Ulcer of left lower extremity with fat layer exposed chronic Ulcer of right lower extremity with fat layer exposed acute Chronic venous insufficiency chronic Delayed wound healing chroni c PVD (peripheral vascular disease) chronic Ulcer of left lower extremity with fat layer exposed chronic Ulcer of right lower extremity with fat layer exposed acute Chronic venous insufficiency chronic Delayed wound healing chroni c PVD (peripheral vascular disease) chronic Ulcer of left lower extremity with fat layer exposed chronic [facility] Work Phone: Evaluation note* Diagnosis Hyperlipidemia, mixed Mixed hyperlipidemia Essential hypertension Unspecified essential hypertension [facility] Diagnosis Onset Date Resolution Status Venous stasis of lower extremity chronic Ulcer of right lower extremity with fat layer exposed acute Chronic venous insufficiency chronic Delayed wound healing chroni c PVD (peripheral vascular disease) chronic Ulcer of left lower extremity with fat layer exposed chronic Ulcer of right lower extremity with fat layer exposed acute Chronic venous insufficiency chronic Delayed wound healing chroni c PVD (peripheral vascular disease) chronic Ulcer of left lower extremity with fat layer exposed chronic Ulcer of right lower extremity with fat layer exposed acute Chronic venous insufficiency chronic Delayed wound healing chroni c PVD (peripheral vascular disease) chronic Ulcer of left lower extremity with fat layer exposed chronic Ulcer of right lower extremity with fat layer exposed acute Chronic venous insufficiency chronic Delayed wound healing chroni c PVD (peripheral vascular disease) chronic Ulcer of left lower extremity with fat layer exposed chronic [facility] Work Phone: Evaluation note* Diagnosis Onset Date Resolution Status Ulcer of right lower extremity with fat layer exposed acute Chronic venous insufficiency chronic Delayed wound healing chroni c PVD (peripheral vascular disease) chronic Ulcer of left lower extremity with fat layer exposed chronic Ulcer of right lower extremity with fat layer exposed acute Chronic venous insufficiency chronic Delayed wound healing chroni c PVD (peripheral vascular disease) chronic Ulcer of left lower extremity with fat layer exposed chronic Ulcer of right lower extremity with fat layer exposed acute Chronic venous insufficiency chronic Delayed wound healing chroni c PVD (peripheral vascular disease) chronic Ulcer of left lower extremity with fat layer exposed chronic Chronic venous insufficiency chronic Delayed wound healing chroni c PVD (peripheral vascular disease) chronic Ulcer of left lower extremity with fat layer exposed chronic [facility] Work Phone: Evaluation note* Diagnosis Onset Date Resolution Status Ulcer of right lower extremity with fat layer exposed acute Chronic venous insufficiency chronic Delayed wound healing chroni c PVD (peripheral vascular disease) chronic Ulcer of left lower extremity with fat layer exposed chronic Ulcer of right lower extremity with fat layer exposed acute Chronic venous insufficiency chronic Delayed wound healing chroni c PVD (peripheral vascular disease) chronic Ulcer of left lower extremity with fat layer exposed chronic Chronic venous insufficiency chronic Delayed wound healing chroni c PVD (peripheral vascular disease) chronic Ulcer of left lower extremity with fat layer exposed chronic Chronic venous insufficiency chronic Delayed wound healing chroni c PVD (peripheral vascular disease) chronic Ulcer of left lower extremity with fat layer exposed chronic [facility] Work Phone: Evaluation note* Diagnosis Onset Date Resolution Status Ulcer of right lower extremity with fat layer exposed acute Chronic venous insufficiency chronic Delayed wound healing chroni c PVD (peripheral vascular disease) chronic Ulcer of left lower extremity with fat layer exposed chronic Chronic venous insufficiency chronic Delayed wound healing chroni c PVD (peripheral vascular disease) chronic Ulcer of left lower extremity with fat layer exposed chronic Chronic venous insufficiency chronic Delayed wound healing chroni c PVD (peripheral vascular disease) chronic Ulcer of left lower extremity with fat layer exposed chronic Chronic venous insufficiency chronic Delayed wound healing chroni c PVD (peripheral vascular disease) chronic Ulcer of left lower extremity with fat layer exposed chronic [facility] Work Phone: Evaluation note* Diagnosis Annual physical exam- Primary Routine general medical examination at a health care facility Essential hypertension Unspecified essential hypertension Prediabetes Other abnormal glucose Hyperlipidemia, mixed Mixed hyperlipidemia Obesity, Class II, BMI 35-39.9 Obesity, unspecified Special screening for malignant neoplasms, colon PVD (peripheral vascular disease) (HCC) Peripheral vascular disease, unspecified Tinea versicolor Pityriasis versicolor documented in this encounter [facility] note* Diagnosis Special screening for malignant neoplasms, colon documented in this encounter [facility] note* Diagnosis Hyperlipidemia, mixed Mixed hyperlipidemia Essential hypertension Unspecified essential hypertension documented in this encounter [facility] note* Diagnosis Rash- Primary Rash and other nonspecific skin eruption [facility] Diagnosis Essential hypertension- Primary Unspecified essential hypertension PVD (peripheral vascular disease) (HCC) Peripheral vascular disease, unspecified Hyperlipidemia, mixed Mixed hyperlipidemia Prediabetes Other abnormal glucose Depression screening Screening for depression Screening for colon cancer Special screening for malignant neoplasms, colon Tinea versicolor Pityriasis versicolor documented in this encounter [facility] note* Diagnosis Essential hypertension- Primary Unspecified essential hypertension Hyperlipidemia, mixed Mixed hyperlipidemia Prediabetes Other abnormal glucose PVD (peripheral vascular disease) (HCC) Peripheral vascular disease, unspecified Obesity, Class II, BMI 35-39.9 Obesity, unspecified documented in this encounter [facility] note* Diagnosis Hyperlipidemia, mixed Mixed hyperlipidemia Essential hypertension Unspecified essential hypertension documented in this encounter [facility] note* Diagnosis Essential hypertension- Primary Unspecified essential hypertension Hyperlipidemia, mixed Mixed hyperlipidemia Prediabetes Other abnormal glucose PVD (peripheral vascular disease) Peripheral vascular disease, unspecified Encounter for colorectal cancer screening using Cologuard test Obesity, Class III, BMI >= 40 Morbid obesity Tinea versicolor Pityriasis versicolor Personal history of tobacco use Personal history of tobacco use, presenting hazards to health documented in this encounter [facility] for referral (narrative)* Outpatient Procedure (Routine) - Authorized Specialty Diagnoses / Procedures Referred By Cecilia t Referred To Contact [facility] Diagnoses Special screening for malignant neoplasms, colon Procedures COLONOSCOPY SCREENING COLONOSCOPY FLX DX W/COLLJ SPEC WHEN PFRMD Bhavana Rosales APRN.SUPERVISOR CHANNEL PROCESS [address] [place] [address] [facility] [address] [place] [address] Referral ID Status Reason Start Date Expiration Date Visits Requested Visits Authorized [id number] Authorized Auto-Generat ed Referral 11/27/2023 1 1 [facility]No reason for referral information [facility]WMer[facility] Work [facility]: Reason for visit Narrative* Outpatient Procedure (Routine) - Closed Specialty Diagnoses / Procedures Referred By Contac t Referred To Contact [facility] Diagnoses Special screening for malignant neoplasms, colon Procedures COLONOSCOPY SCREENING COLONOSCOPY FLX DX W/COLLJ SPEC WHEN PFRMD Bhavana Rosales APRN.CNP [address] [place] [address] [facility] [address] [place] [address] Referral ID Status Reason Start Date Expiration Date V isits Requested Visits Authorized [id number] Closed Auto-Generate d Referral 10/16/2023 11/27/2023 1 1 [facility] Summary Purpose Family History No Family History Records Found Relationship Condition Age at Onset Recorded Date/T kasia Unknown Family History?- Unknown October 182014 4:11pm Family History?- Unknown July 042017 12:55pm Relationship Condition Age at Onset Recorded Date/T kasia Unknown Family History?- Unknown October 182014 3:11pm Family History?- Unknown July 042017 11:55am Relationship Condition Age at Onset Recorded Date/T kasia Not Specified Diabetes mellitus Unknown Coronary artery disease Unknown Cardiac disease Unknown Hypertension Unknown Cerebrovascular accident (CVA) Unknown Advance Directives No Advanced Directives Records Found Advance Directive Response Recorded Date/ Time Living Will No July 19, 2021 12:20am Power of Lighting Specialist No June 12:20am Advance Directive Response Recorded Date/ Time Living Will No July 20, 2022 2:17pm Power of Lighting Specialist No June 2:17pm Advance Directive Response Recorded Date/ Time Living Will No July 20, 2022 1:17pm Power of Lighting Specialist No June 1:17pm Advance Directive Response Recorded Date/ Time Advance Directives No March 03, 2014 9:06am Living Will No July 20, 2022 2:17pm Power of Lighting Specialist No June 2:17pm Advance Directive Response Recorded Date/ Time Advance Directives No March 03, 2014 8:06am Living Will No July 20, 2022 1:17pm Power of Lighting Specialist No June 1:17pm Advance Directive Response Recorded Date/ Time Living Will No September 28 1:27am Do you have a Healthcare Power of Lighting Specialist? No September 28, 2024 1:27am Living Will No October 29 1:16am Do you have a Healthcare Power of Lighting Specialist? No October 29, 2024 1:16am Living Will No November 29 2:49am Do you have a Healthcare Power of Lighting Specialist? No November 29, 2024 2:49am Living Will No December 27, 2024 3:11am Do you have a Healthcare Power of Lighting Specialist? No December 27, 2024 3:11am Advance Directives No March 03, 2014 9:06am Advance Directive Response Recorded Date/ Time Living Will No February 26, 2025 12 :39am Do you have a Healthcare Power of Lighting Specialist? No February 26, 2025 12:39am Living Will No November 29 2:49am Do you have a Healthcare Power of Lighting Specialist? No November 29, 2024 2:49am Living Will No December 27, 2024 3:11am Do you have a Healthcare Power of Lighting Specialist? No December 27, 2024 3:11am Living Will No January 27, 2025 12:54am Do you have a Healthcare Power of Lighting Specialist? No January 27, 2025 12:54am Living Will No March 25, 2025 7 :30am Do you have a Healthcare Power of Lighting Specialist? No March 25, 2025 7:30am Advance Directives No March 25 7:30am Advance Directive Response Recorded Date/ Time Living Will No February 26, 2025 12 :39am Do you have a Healthcare Power of Lighting Specialist? No February 26, 2025 12:39am Living Will No December 27, 2024 3:11am Do you have a Healthcare Power of Lighting Specialist? No December 27, 2024 3:11am Living Will No January 27, 2025 12:54am Do you have a Healthcare Power of Lighting Specialist? No January 27, 2025 12:54am Living Will No March 25, 2025 7 :30am Do you have a Healthcare Power of Lighting Specialist? No March 25, 2025 7:30am Advance Directives No March 25 7:30am Living Will No March 29, 2025 1 2:18am Do you have a Healthcare Power of Lighting Specialist? No March 29, 2025 12:18am Chief Complaint and Reason for Visit Chief Complaint Wound Care. Non-pres sure chronic ulcer of unspecif Wound Care. Non-pressure chronic ulcer of unspecif Wound Care. Non-pressure chronic ulcer of unspecif Wound Care. Non-pressure chronic ulcer of unspecif Wound Care. Non-pressure chronic ulcer of unspecif Wound Care. Non-pressure chronic ulcer of unspecif Wound Care. Non-pressure chronic ulcer of unspecif Wound Care. Non-pressure chronic ulcer of unspecif Wound Care. Non-pressure chronic ulcer of unspecif Wound Care. Non-pressure chronic ulcer of unspecif Wound Care. Non-pressure chronic ulcer of unspecif Wound Care. Non-pressure chronic ulcer of unspecif Wound Care. Non-pressure chronic ulcer of unspecif Reason for Visit Chronic venous insuf ficiency Delayed wound healing PVD (peripheral vascular disease) Ulcer of left lower extremity with fat layer exposed Chronic venous insufficiency Delayed wound healing PVD (peripheral vascular disease) Ulcer of left lower extremity with fat layer exposed Chronic venous insufficiency Delayed wound healing PVD (peripheral vascular disease) Ulcer of left lower extremity with fat layer exposed Chronic venous insufficiency Delayed wound healing PVD (peripheral vascular disease) Ulcer of left lower extremity with fat layer exposed Chief Complaint Wound Care. Non-pres sure chronic ulcer of unspecif Wound Care. Non-pressure chronic ulcer of unspecif Wound Care. Non-pressure chronic ulcer of unspecif Wound Care. Non-pressure chronic ulcer of unspecif Wound Care. Non-pressure chronic ulcer of unspecif Wound Care. Non-pressure chronic ulcer of unspecif Wound Care. Non-pressure chronic ulcer of unspecif Wound Care. Non-pressure chronic ulcer of unspecif Wound Care. Non-pressure chronic ulcer of unspecif Wound Care. Non-pressure chronic ulcer of unspecif Wound Care. Non-pressure chronic ulcer of unspecif Wound Care. Non-pressure chronic ulcer of unspecif Reason for Visit Chronic venous insuf ficiency Delayed wound healing PVD (peripheral vascular disease) Ulcer of left lower extremity with fat layer exposed Chronic venous insufficiency Delayed wound healing PVD (peripheral vascular disease) Ulcer of left lower extremity with fat layer exposed Chronic venous insufficiency Delayed wound healing PVD (peripheral vascular disease) Ulcer of left lower extremity with fat layer exposed Chronic venous insufficiency Delayed wound healing PVD (peripheral vascular disease) Ulcer of left lower extremity with fat layer exposed Chief Complaint Wound Care. Non-pres sure chronic ulcer of unspecif Wound Care. Non-pressure chronic ulcer of unspecif Wound Care. Non-pressure chronic ulcer of unspecif Wound Care. Non-pressure chronic ulcer of unspecif Wound Care. Non-pressure chronic ulcer of unspecif Wound Care. Non-pressure chronic ulcer of unspecif Wound Care. Non-pressure chronic ulcer of unspecif Wound Care. Non-pressure chronic ulcer of unspecif Wound Care. Non-pressure chronic ulcer of unspecif Wound Care. Non-pressure chronic ulcer of unspecif Wound Care. Non-pressure chronic ulcer of unspecif Wound Care. Non-pressure chronic ulcer of unspecif Wound Care. Non-pressure chronic ulcer of unspecif Wound Care. Non-pressure chronic ulcer of unspecif Reason for Visit Chronic venous insuf ficiency Delayed wound healing PVD (peripheral vascular disease) Ulcer of left lower extremity with fat layer exposed Chronic venous insufficiency Delayed wound healing PVD (peripheral vascular disease) Ulcer of left lower extremity with fat layer exposed Chronic venous insufficiency Delayed wound healing PVD (peripheral vascular disease) Ulcer of left lower extremity with fat layer exposed Chronic venous insufficiency Delayed wound healing PVD (peripheral vascular disease) Ulcer of left lower extremity with fat layer exposed Chief Complaint Wound Care. Non-pres sure chronic ulcer of unspecif Wound Care. Non-pressure chronic ulcer of unspecif Wound Care. Non-pressure chronic ulcer of unspecif Wound Care. Non-pressure chronic ulcer of unspecif Wound Care. Non-pressure chronic ulcer of unspecif Wound Care. Non-pressure chronic ulcer of unspecif Wound Care. Non-pressure chronic ulcer of unspecif Wound Care. Non-pressure chronic ulcer of unspecif Wound Care. Non-pressure chronic ulcer of unspecif Wound Care. Non-pressure chronic ulcer of unspecif Wound Care. Non-pressure chronic ulcer of unspecif Wound Care. Non-pressure chronic ulcer of unspecif Wound Care. Non-pressure chronic ulcer of unspecif Wound Care. Non-pressure chronic ulcer of unspecif Wound Care. Non-pressure chronic ulcer of unspecif Reason for Visit Chronic venous insuf ficiency Delayed wound healing PVD (peripheral vascular disease) Ulcer of left lower extremity with fat layer exposed Chronic venous insufficiency Delayed wound healing PVD (peripheral vascular disease) Ulcer of left lower extremity with fat layer exposed Chronic venous insufficiency Delayed wound healing PVD (peripheral vascular disease) Ulcer of left lower extremity with fat layer exposed Ulcer of right lower extremity with fat layer exposed Chronic venous insufficiency Delayed wound healing PVD (peripheral vascular disease) Ulcer of left lower extremity with fat layer exposed Chief Complaint Wound Care. Non-pres sure chronic ulcer of unspecif Wound Care. Non-pressure chronic ulcer of unspecif Wound Care. Non-pressure chronic ulcer of unspecif Wound Care. Non-pressure chronic ulcer of unspecif Wound Care. Non-pressure chronic ulcer of unspecif Wound Care. Non-pressure chronic ulcer of unspecif Wound Care. Non-pressure chronic ulcer of unspecif Wound Care. Non-pressure chronic ulcer of unspecif Wound Care. Non-pressure chronic ulcer of unspecif Wound Care. Non-pressure chronic ulcer of unspecif Wound Care. Non-pressure chronic ulcer of unspecif Wound Care. Non-pressure chronic ulcer of unspecif Wound Care. Non-pressure chronic ulcer of unspecif WOUNDS ON BOTH LEGS Wound Care. Non-pressure chronic ulcer of unspecif Wound Care. Non-pressure chronic ulcer of unspecif Reason for Visit Chronic venous insuf ficiency Delayed wound healing PVD (peripheral vascular disease) Ulcer of left lower extremity with fat layer exposed Chronic venous insufficiency Delayed wound healing PVD (peripheral vascular disease) Ulcer of left lower extremity with fat layer exposed Ulcer of right lower extremity with fat layer exposed Chronic venous insufficiency Delayed wound healing PVD (peripheral vascular disease) Ulcer of left lower extremity with fat layer exposed Venous stasis of lower extremity Chronic venous hypertension with ulcer Ulcer of right lower extremity with fat layer exposed Chronic venous insufficiency Delayed wound healing PVD (peripheral vascular disease) Ulcer of left lower extremity with fat layer exposed Chief Complaint Wound Care. Non-pres sure chronic ulcer of unspecif Wound Care. Non-pressure chronic ulcer of unspecif Wound Care. Non-pressure chronic ulcer of unspecif Wound Care. Non-pressure chronic ulcer of unspecif Wound Care. Non-pressure chronic ulcer of unspecif Wound Care. Non-pressure chronic ulcer of unspecif Wound Care. Non-pressure chronic ulcer of unspecif Wound Care. Non-pressure chronic ulcer of unspecif WOUNDS ON BOTH LEGS Wound Care. Non-pressure chronic ulcer of unspecif Wound Care. Non-pressure chronic ulcer of unspecif Wound Care. Non-pressure chronic ulcer of unspecif Wound Care. Non-pressure chronic ulcer of unspecif Wound Care. Non-pressure chronic ulcer of unspecif Wound Care. Non-pressure chronic ulcer of unspecif Reason for Visit Chronic venous insuf ficiency Delayed wound healing PVD (peripheral vascular disease) Ulcer of left lower extremity with fat layer exposed Ulcer of right lower extremity with fat layer exposed Chronic venous insufficiency Delayed wound healing PVD (peripheral vascular disease) Ulcer of left lower extremity with fat layer exposed Venous stasis of lower extremity Chronic venous hypertension with ulcer Ulcer of right lower extremity with fat layer exposed Chronic venous insufficiency Delayed wound healing PVD (peripheral vascular disease) Ulcer of left lower extremity with fat layer exposed Ulcer of right lower extremity with fat layer exposed Chronic venous insufficiency Delayed wound healing PVD (peripheral vascular disease) Ulcer of left lower extremity with fat layer exposed Chief Complaint Wound Care. Non-pres sure chronic ulcer of unspecif Wound Care. Non-pressure chronic ulcer of unspecif Wound Care. Non-pressure chronic ulcer of unspecif Wound Care. Non-pressure chronic ulcer of unspecif Wound Care. Non-pressure chronic ulcer of unspecif Wound Care. Non-pressure chronic ulcer of unspecif Wound Care. Non-pressure chronic ulcer of unspecif Wound Care. Non-pressure chronic ulcer of unspecif WOUNDS ON BOTH LEGS Wound Care. Non-pressure chronic ulcer of unspecif Wound Care. Non-pressure chronic ulcer of unspecif Wound Care. Non-pressure chronic ulcer of unspecif Wound Care. Non-pressure chronic ulcer of unspecif Wound Care. Non-pressure chronic ulcer of unspecif Wound Care. Non-pressure chronic ulcer of unspecif VENOUS STASIS *ANESTHESIA* VENOUS STASIS *ANESTHESIA* Reason for Visit Chronic venous insuf ficiency Delayed wound healing PVD (peripheral vascular disease) Ulcer of left lower extremity with fat layer exposed Ulcer of right lower extremity with fat layer exposed Chronic venous insufficiency Delayed wound healing PVD (peripheral vascular disease) Ulcer of left lower extremity with fat layer exposed Venous stasis of lower extremity Chronic venous hypertension with ulcer Ulcer of right lower extremity with fat layer exposed Chronic venous insufficiency Delayed wound healing PVD (peripheral vascular disease) Ulcer of left lower extremity with fat layer exposed Ulcer of right lower extremity with fat layer exposed Chronic venous insufficiency Delayed wound healing PVD (peripheral vascular disease) Ulcer of left lower extremity with fat layer exposed Venous stasis of lower extremity Chief Complaint Wound Care. Non-pres sure chronic ulcer of unspecif Wound Care. Non-pressure chronic ulcer of unspecif Wound Care. Non-pressure chronic ulcer of unspecif Wound Care. Non-pressure chronic ulcer of unspecif Wound Care. Non-pressure chronic ulcer of unspecif WOUNDS ON BOTH LEGS Wound Care. Non-pressure chronic ulcer of unspecif Wound Care. Non-pressure chronic ulcer of unspecif Wound Care. Non-pressure chronic ulcer of unspecif Wound Care. Non-pressure chronic ulcer of unspecif Wound Care. Non-pressure chronic ulcer of unspecif Wound Care. Non-pressure chronic ulcer of unspecif VENOUS STASIS *ANESTHESIA* VENOUS STASIS *ANESTHESIA* VENOUS STASIS *ANESTHESIA* Wound Care. Non-pressure chronic ulcer of unspecif Wound Care. Non-pressure chronic ulcer of unspecif Wound Care. Non-pressure chronic ulcer of unspecif 2-4 week follow Reason for Visit Ulcer of right lower extremity with fat layer exposed Chronic venous insufficiency Delayed wound healing PVD (peripheral vascular disease) Ulcer of left lower extremity with fat layer exposed Venous stasis of lower extremity Chronic venous hypertension with ulcer Ulcer of right lower extremity with fat layer exposed Chronic venous insufficiency Delayed wound healing PVD (peripheral vascular disease) Ulcer of left lower extremity with fat layer exposed Ulcer of right lower extremity with fat layer exposed Chronic venous insufficiency Delayed wound healing PVD (peripheral vascular disease) Ulcer of left lower extremity with fat layer exposed Venous stasis of lower extremity Ulcer of right lower extremity with fat layer exposed Chronic venous insufficiency Delayed wound healing PVD (peripheral vascular disease) Ulcer of left lower extremity with fat layer exposed Venous stasis of lower extremity Chief Complaint Wound Care. Non-pres sure chronic ulcer of unspecif Wound Care. Non-pressure chronic ulcer of unspecif Wound Care. Non-pressure chronic ulcer of unspecif Wound Care. Non-pressure chronic ulcer of unspecif WOUNDS ON BOTH LEGS Wound Care. Non-pressure chronic ulcer of unspecif Wound Care. Non-pressure chronic ulcer of unspecif Wound Care. Non-pressure chronic ulcer of unspecif Wound Care. Non-pressure chronic ulcer of unspecif Wound Care. Non-pressure chronic ulcer of unspecif Wound Care. Non-pressure chronic ulcer of unspecif VENOUS STASIS *ANESTHESIA* VENOUS STASIS *ANESTHESIA* VENOUS STASIS *ANESTHESIA* Wound Care. Non-pressure chronic ulcer of unspecif Wound Care. Non-pressure chronic ulcer of unspecif Wound Care. Non-pressure chronic ulcer of unspecif 2-4 week follow BILAT LOWER EXT SWELLING Wound Care. Non-pressure chronic ulcer of unspecif Wound Care. Non-pressure chronic ulcer of unspecif Reason for Visit Ulcer of right lower extremity with fat layer exposed Chronic venous insufficiency Delayed wound healing PVD (peripheral vascular disease) Ulcer of left lower extremity with fat layer exposed Venous stasis of lower extremity Chronic venous hypertension with ulcer Ulcer of right lower extremity with fat layer exposed Chronic venous insufficiency Delayed wound healing PVD (peripheral vascular disease) Ulcer of left lower extremity with fat layer exposed Ulcer of right lower extremity with fat layer exposed Chronic venous insufficiency Delayed wound healing PVD (peripheral vascular disease) Ulcer of left lower extremity with fat layer exposed Venous stasis of lower extremity Ulcer of right lower extremity with fat layer exposed Chronic venous insufficiency Delayed wound healing PVD (peripheral vascular disease) Ulcer of left lower extremity with fat layer exposed Venous stasis of lower extremity Ulcer of right lower extremity with fat layer exposed Chronic venous insufficiency Delayed wound healing PVD (peripheral vascular disease) Ulcer of left lower extremity with fat layer exposed Chief Complaint Wound Care. Non-pres sure chronic ulcer of unspecif Wound Care. Non-pressure chronic ulcer of unspecif Wound Care. Non-pressure chronic ulcer of unspecif VENOUS STASIS *ANESTHESIA* VENOUS STASIS *ANESTHESIA* VENOUS STASIS *ANESTHESIA* Wound Care. Non-pressure chronic ulcer of unspecif Wound Care. Non-pressure chronic ulcer of unspecif Wound Care. Non-pressure chronic ulcer of unspecif 2-4 week follow BILAT LOWER EXT SWELLING Wound Care. Non-pressure chronic ulcer of unspecif Wound Care. Non-pressure chronic ulcer of unspecif Wound Care. Non-pressure chronic ulcer of unspecif Wound Care. Non-pressure chronic ulcer of unspecif Wound Care. Non-pressure chronic ulcer of unspecif Discuss venous duplex results Wound Care. Non-pressure chronic ulcer of unspecif Wound Care. Non-pressure chronic ulcer of unspecif Reason for Visit Ulcer of right lower extremity with fat layer exposed Chronic venous insufficiency Delayed wound healing PVD (peripheral vascular disease) Ulcer of left lower extremity with fat layer exposed Venous stasis of lower extremity Ulcer of right lower extremity with fat layer exposed Chronic venous insufficiency Delayed wound healing PVD (peripheral vascular disease) Ulcer of left lower extremity with fat layer exposed Venous stasis of lower extremity Ulcer of right lower extremity with fat layer exposed Chronic venous insufficiency Delayed wound healing PVD (peripheral vascular disease) Ulcer of left lower extremity with fat layer exposed Venous stasis of lower extremity Ulcer of right lower extremity with fat layer exposed Chronic venous insufficiency Delayed wound healing PVD (peripheral vascular disease) Ulcer of left lower extremity with fat layer exposed Chief Complaint BILAT LOWER EXT SWEL LING Wound Care. Non-pressure chronic ulcer of unspecif Wound Care. Non-pressure chronic ulcer of unspecif Wound Care. Non-pressure chronic ulcer of unspecif Wound Care. Non-pressure chronic ulcer of unspecif Wound Care. Non-pressure chronic ulcer of unspecif Discuss venous duplex results Wound Care. Non-pressure chronic ulcer of unspecif Wound Care. Non-pressure chronic ulcer of unspecif Wound Care. Non-pressure chronic ulcer of unspecif Wound Care. Non-pressure chronic ulcer of unspecif Wound Care. Non-pressure chronic ulcer of unspecif Wound Care. Non-pressure chronic ulcer of unspecif Wound Care. Non-pressure chronic ulcer of unspecif Wound Care. Non-pressure chronic ulcer of unspecif Reason for Visit Ulcer of right lower extremity with fat layer exposed Chronic venous insufficiency Delayed wound healing PVD (peripheral vascular disease) Ulcer of left lower extremity with fat layer exposed Venous stasis of lower extremity Ulcer of right lower extremity with fat layer exposed Chronic venous insufficiency Delayed wound healing PVD (peripheral vascular disease) Ulcer of left lower extremity with fat layer exposed Ulcer of right lower extremity with fat layer exposed Chronic venous insufficiency Delayed wound healing PVD (peripheral vascular disease) Ulcer of left lower extremity with fat layer exposed Ulcer of right lower extremity with fat layer exposed Chronic venous insufficiency Delayed wound healing PVD (peripheral vascular disease) Ulcer of left lower extremity with fat layer exposed Chief Complaint Wound Care. Non-pres sure chronic ulcer of unspecif Discuss venous duplex results Wound Care. Non-pressure chronic ulcer of unspecif Wound Care. Non-pressure chronic ulcer of unspecif Wound Care. Non-pressure chronic ulcer of unspecif Wound Care. Non-pressure chronic ulcer of unspecif Wound Care. Non-pressure chronic ulcer of unspecif Wound Care. Non-pressure chronic ulcer of unspecif Wound Care. Non-pressure chronic ulcer of unspecif Wound Care. Non-pressure chronic ulcer of unspecif Wound Care. Non-pressure chronic ulcer of unspecif Wound Care. Non-pressure chronic ulcer of unspecif Wound Care. Non-pressure chronic ulcer of unspecif Reason for Visit Venous stasis of low er extremity Ulcer of right lower extremity with fat layer exposed Chronic venous insufficiency Delayed wound healing PVD (peripheral vascular disease) Ulcer of left lower extremity with fat layer exposed Ulcer of right lower extremity with fat layer exposed Chronic venous insufficiency Delayed wound healing PVD (peripheral vascular disease) Ulcer of left lower extremity with fat layer exposed Ulcer of right lower extremity with fat layer exposed Chronic venous insufficiency Delayed wound healing PVD (peripheral vascular disease) Ulcer of left lower extremity with fat layer exposed Ulcer of right lower extremity with fat layer exposed Chronic venous insufficiency Delayed wound healing PVD (peripheral vascular disease) Ulcer of left lower extremity with fat layer exposed Chief Complaint Wound Care. Non-pres sure chronic ulcer of unspecif Wound Care. Non-pressure chronic ulcer of unspecif Wound Care. Non-pressure chronic ulcer of unspecif Wound Care. Non-pressure chronic ulcer of unspecif Wound Care. Non-pressure chronic ulcer of unspecif Wound Care. Non-pressure chronic ulcer of unspecif Wound Care. Non-pressure chronic ulcer of unspecif Wound Care. Non-pressure chronic ulcer of unspecif Wound Care. Non-pressure chronic ulcer of unspecif Wound Care. Non-pressure chronic ulcer of unspecif Wound Care. Non-pressure chronic ulcer of unspecif Reason for Visit Ulcer of right lower extremity with fat layer exposed Chronic venous insufficiency Delayed wound healing PVD (peripheral vascular disease) Ulcer of left lower extremity with fat layer exposed Ulcer of right lower extremity with fat layer exposed Chronic venous insufficiency Delayed wound healing PVD (peripheral vascular disease) Ulcer of left lower extremity with fat layer exposed Ulcer of right lower extremity with fat layer exposed Chronic venous insufficiency Delayed wound healing PVD (peripheral vascular disease) Ulcer of left lower extremity with fat layer exposed Chronic venous insufficiency Delayed wound healing PVD (peripheral vascular disease) Ulcer of left lower extremity with fat layer exposed Chief Complaint Wound Care. Non-pres sure chronic ulcer of unspecif Wound Care. Non-pressure chronic ulcer of unspecif Wound Care. Non-pressure chronic ulcer of unspecif Wound Care. Non-pressure chronic ulcer of unspecif Wound Care. Non-pressure chronic ulcer of unspecif Wound Care. Non-pressure chronic ulcer of unspecif Wound Care. Non-pressure chronic ulcer of unspecif Wound Care. Non-pressure chronic ulcer of unspecif Wound Care. Non-pressure chronic ulcer of unspecif Wound Care. Non-pressure chronic ulcer of unspecif Wound Care. Non-pressure chronic ulcer of unspecif Wound Care. Non-pressure chronic ulcer of unspecif Reason for Visit Ulcer of right lower extremity with fat layer exposed Chronic venous insufficiency Delayed wound healing PVD (peripheral vascular disease) Ulcer of left lower extremity with fat layer exposed Ulcer of right lower extremity with fat layer exposed Chronic venous insufficiency Delayed wound healing PVD (peripheral vascular disease) Ulcer of left lower extremity with fat layer exposed Chronic venous insufficiency Delayed wound healing PVD (peripheral vascular disease) Ulcer of left lower extremity with fat layer exposed Chronic venous insufficiency Delayed wound healing PVD (peripheral vascular disease) Ulcer of left lower extremity with fat layer exposed Chief Complaint Wound Care. Non-pres sure chronic ulcer of unspecif Wound Care. Non-pressure chronic ulcer of unspecif Wound Care. Non-pressure chronic ulcer of unspecif Wound Care. Non-pressure chronic ulcer of unspecif Wound Care. Non-pressure chronic ulcer of unspecif Wound Care. Non-pressure chronic ulcer of unspecif Wound Care. Non-pressure chronic ulcer of unspecif Wound Care. Non-pressure chronic ulcer of unspecif Wound Care. Non-pressure chronic ulcer of unspecif Wound Care. Non-pressure chronic ulcer of unspecif Wound Care. Non-pressure chronic ulcer of unspecif Reason for Visit Ulcer of right lower extremity with fat layer exposed Chronic venous insufficiency Delayed wound healing PVD (peripheral vascular disease) Ulcer of left lower extremity with fat layer exposed Chronic venous insufficiency Delayed wound healing PVD (peripheral vascular disease) Ulcer of left lower extremity with fat layer exposed Chronic venous insufficiency Delayed wound healing PVD (peripheral vascular disease) Ulcer of left lower extremity with fat layer exposed Chronic venous insufficiency Delayed wound healing PVD (peripheral vascular disease) Ulcer of left lower extremity with fat layer exposed Chief Complaint Wound Care. Non-pres sure chronic ulcer of unspecif Wound Care. Non-pressure chronic ulcer of unspecif Wound Care. Non-pressure chronic ulcer of unspecif Wound Care. Non-pressure chronic ulcer of unspecif Wound Care. Non-pressure chronic ulcer of unspecif Wound Care. Non-pressure chronic ulcer of unspecif Wound Care. Non-pressure chronic ulcer of unspecif Wound Care. Non-pressure chronic ulcer of unspecif Wound Care. Non-pressure chronic ulcer of unspecif Wound Care. Non-pressure chronic ulcer of unspecif Wound Care. Non-pressure chronic ulcer of unspecif Reason for Visit Chronic venous insuf ficiency Delayed wound healing PVD (peripheral vascular disease) Ulcer of left lower extremity with fat layer exposed Chronic venous insufficiency Delayed wound healing PVD (peripheral vascular disease) Ulcer of left lower extremity with fat layer exposed Chronic venous insufficiency Delayed wound healing PVD (peripheral vascular disease) Ulcer of left lower extremity with fat layer exposed Chronic venous insufficiency Delayed wound healing PVD (peripheral vascular disease) Ulcer of left lower extremity with fat layer exposed Chief Complaint Admit Date Wound Care. Non-pressure chronic ulcer o f unspecif October 16, 2024 12:31pm Wound Care. Non-pressure chronic ulcer o f unspecif October 23, 2024 8:00am Wound Care. Non-pressure chronic ulcer o f unspecif October 23, 2024 9:08am Wound Care. Non-pressure chronic ulcer o f unspecif November 06, 2024 8:50am Wound Care. Non-pressure chronic ulcer o f unspecif November 20, 2024 8:00am Wound Care. Non-pressure chronic ulcer o f unspecif November 20, 2024 9:21am Non healing wounds, discuss ablation Feb ruary 2024 8:15am Wound Care. Non-pressure chronic ulcer o f unspecif December 11, 2024 8:45am Wound Care. Non-pressure chronic ulcer o f unspecif December 11, 2024 12:55pm Wound Care. Non-pressure chronic ulcer o f unspecif January 01, 2025 9:03am 2 WK FU January 01, 2025 1:44 pm Wound Care. Non-pressure chronic ulcer o f unspecif January 15, 2025 8:00am Wound Care. Non-pressure chronic ulcer o f unspecif January 15, 2025 8:44am Reason for Visit Admit Date Ulcer of right lower extremity with fat layer exposed October 23, 2024 8:00am Chronic venous insufficiency October 232023 8:00am Delayed wound healing October 23 8:00am PVD (peripheral vascular disease) Dece er 2023 8:00am Ulcer of left lower extremity with fat l jason exposed October 23, 2024 8:00am Ulcer of right lower extremity with fat layer exposed November 20, 2024 8:00am Chronic venous insufficiency October 8:00am Delayed wound healing November 20, 2024 8:00am PVD (peripheral vascular disease) Januar y 2024 8:00am Ulcer of left lower extremity with fat l jason exposed November 20, 2024 8:00am Venous stasis ulcer of ankle November 8:15am Ulcer of right lower extremity with fat layer exposed December 11, 2024 8:45am Chronic venous insufficiency December [id number] 8:45am Delayed wound healing December 11 8:45am PVD (peripheral vascular disease) Februa 2024 8:45am Ulcer of left lower extremity with fat l jason exposed December 11, 2024 8:45am Venous stasis ulcer of ankle January 01, 2025 1:44pm Ulcer of right lower extremity with fat layer exposed January 15, 2025 8:00am Chronic venous insufficiency January 15, 2025 8:00am Delayed wound healing January 15, 2025 8 :00am PVD (peripheral vascular disease) January 15, 2025 8:00am Ulcer of left lower extremity with fat l jason exposed January 15, 2025 8:00am Chief Complaint Admit Date Non healing wounds, discuss ablation Feb ruary 2024 8:15am Wound Care. Non-pressure chronic ulcer o f unspecif December 11, 2024 8:45am Wound Care. Non-pressure chronic ulcer o f unspecif December 11, 2024 12:55pm Wound Care. Non-pressure chronic ulcer o f unspecif January 01, 2025 9:03am 2 WK FU January 01, 2025 1:44 pm Wound Care. Non-pressure chronic ulcer o f unspecif January 15, 2025 8:00am Wound Care. Non-pressure chronic ulcer o f unspecif January 15, 2025 8:44am Wound Care. Non-pressure chronic ulcer o f unspecif January 29, 2025 9:01am Wound Care. Non-pressure chronic ulcer o f unspecif February 12, 2025 8:00am Wound Care. Non-pressure chronic ulcer o f unspecif February 12, 2025 9:59am Wound Care. Non-pressure chronic ulcer o f unspecif February 26, 2025 9:30am Wound Care. Non-pressure chronic ulcer o f unspecif March 12, 2025 8:00am Wound Care. Non-pressure chronic ulcer o f unspecif March 12, 2025 9:43am Varicose veins of unspecified lower extr em (UNILAT March 25, 2025 7:13am Varicose veins of unspecified lower extr em (UNILAT March 25, 2025 9:15am Reason for Visit Admit Date Venous stasis ulcer of ankle November 8:15am Ulcer of right lower extremity with fat layer exposed December 11, 2024 8:45am Chronic venous insufficiency December [id number] 8:45am Delayed wound healing December 11 8:45am PVD (peripheral vascular disease) Februa 2024 8:45am Ulcer of left lower extremity with fat l jason exposed December 11, 2024 8:45am Venous stasis ulcer of ankle January 01, 2025 1:44pm Ulcer of right lower extremity with fat layer exposed January 15, 2025 8:00am Chronic venous insufficiency January 15, 2025 8:00am Delayed wound healing January 15, 2025 8 :00am PVD (peripheral vascular disease) January 15, 2025 8:00am Ulcer of left lower extremity with fat l jason exposed January 15, 2025 8:00am Ulcer of right lower extremity with fat layer exposed February 12, 2025 8:00am Chronic venous insufficiency February 12, 2025 8:00am Delayed wound healing February 12, 2025 8 :00am PVD (peripheral vascular disease) February 12, 2025 8:00am Ulcer of left lower extremity with fat l jason exposed February 12, 2025 8:00am Ulcer of right lower extremity with fat layer exposed March 12, 2025 8:00am Chronic venous insufficiency March 12, 2 025 8:00am Delayed wound healing March 12, 2025 8:0 0am PVD (peripheral vascular disease) March 122024 8:00am Ulcer of left lower extremity with fat l jason exposed March 12, 2025 8:00am Venous stasis ulcer of ankle March 25, 2 025 7:13am Chief Complaint Admit Date Non healing wounds, discuss ablation Feb ruary 2024 8:15am Wound Care. Non-pressure chronic ulcer o f unspecif December 11, 2024 8:45am Wound Care. Non-pressure chronic ulcer o f unspecif December 11, 2024 12:55pm Wound Care. Non-pressure chronic ulcer o f unspecif January 01, 2025 9:03am 2 WK FU January 01, 2025 1:44 pm Wound Care. Non-pressure chronic ulcer o f unspecif January 15, 2025 8:00am Wound Care. Non-pressure chronic ulcer o f unspecif January 15, 2025 8:44am Wound Care. Non-pressure chronic ulcer o f unspecif January 29, 2025 9:01am Wound Care. Non-pressure chronic ulcer o f unspecif February 12, 2025 8:00am Wound Care. Non-pressure chronic ulcer o f unspecif February 12, 2025 9:59am Wound Care. Non-pressure chronic ulcer o f unspecif February 26, 2025 9:30am Wound Care. Non-pressure chronic ulcer o f unspecif March 12, 2025 8:00am Wound Care. Non-pressure chronic ulcer o f unspecif March 12, 2025 9:43am Varicose veins of unspecified lower extr em (UNILAT March 25, 2025 7:13am Varicose veins of unspecified lower extr em (UNILAT March 25, 2025 9:15am S/P ABLATION RT LEG March 30, 2025 7:51a m Chief Complaint Admit Date Wound Care. Non-pressure chronic ulcer o f unspecif January 01, 2025 9:03am 2 WK FU January 01, 2025 1:44 pm Wound Care. Non-pressure chronic ulcer o f unspecif January 15, 2025 8:00am Wound Care. Non-pressure chronic ulcer o f unspecif January 15, 2025 8:44am Wound Care. Non-pressure chronic ulcer o f unspecif January 29, 2025 9:01am Wound Care. Non-pressure chronic ulcer o f unspecif February 12, 2025 8:00am Wound Care. Non-pressure chronic ulcer o f unspecif February 12, 2025 9:59am Wound Care. Non-pressure chronic ulcer o f unspecif February 26, 2025 9:30am Wound Care. Non-pressure chronic ulcer o f unspecif March 12, 2025 8:00am Wound Care. Non-pressure chronic ulcer o f unspecif March 12, 2025 9:43am Varicose veins of unspecified lower extr em (UNILAT March 25, 2025 7:13am Varicose veins of unspecified lower extr em (UNILAT March 25, 2025 9:15am S/P ABLATION RT LEG March 30, 2025 7:51a m Wound Care. Non-pressure chronic ulcer o f unspecif April 09, 2025 7:38am Wound Care. Non-pressure chronic ulcer o f unspecif April 09, 2025 8:37am Post Sclerotherapy 2-4 WK FU April 14, 2025 1:49pm Reason for Visit Admit Date Venous stasis ulcer of ankle January 01, 2025 1:44pm Ulcer of right lower extremity with fat layer exposed January 15, 2025 8:00am Chronic venous insufficiency January 15, 2025 8:00am Delayed wound healing January 15, 2025 8 :00am PVD (peripheral vascular disease) January 15, 2025 8:00am Ulcer of left lower extremity with fat l jason exposed January 15, 2025 8:00am Ulcer of right lower extremity with fat layer exposed February 12, 2025 8:00am Chronic venous insufficiency February 12, 2025 8:00am Delayed wound healing February 12, 2025 8 :00am PVD (peripheral vascular disease) February 12, 2025 8:00am Ulcer of left lower extremity with fat l jason exposed February 12, 2025 8:00am Ulcer of right lower extremity with fat layer exposed March 12, 2025 8:00am Chronic venous insufficiency March 12, 2 025 8:00am Delayed wound healing March 12, 2025 8:0 0am PVD (peripheral vascular disease) March 122024 8:00am Ulcer of left lower extremity with fat l jason exposed March 12, 2025 8:00am Venous stasis ulcer of ankle March 25, 2 025 7:13am Ulcer of right lower extremity with fat layer exposed April 09, 2025 7:38am Chronic venous insufficiency April 09, 2025 7:38am Delayed wound healing April 09, 2025 7: 38am PVD (peripheral vascular disease) March 292024 7:38am Ulcer of left lower extremity with fat l jason exposed April 09, 2025 7:38am Chief Complaint Admit Date Wound Care. Non-pressure chronic ulcer o f unspecif January 01, 2025 9:03am 2 WK FU January 01, 2025 1:44 pm Wound Care. Non-pressure chronic ulcer o f unspecif January 15, 2025 8:00am Wound Care. Non-pressure chronic ulcer o f unspecif January 15, 2025 8:44am Wound Care. Non-pressure chronic ulcer o f unspecif January 29, 2025 9:01am Wound Care. Non-pressure chronic ulcer o f unspecif February 12, 2025 8:00am Wound Care. Non-pressure chronic ulcer o f unspecif February 12, 2025 9:59am Wound Care. Non-pressure chronic ulcer o f unspecif February 26, 2025 9:30am Wound Care. Non-pressure chronic ulcer o f unspecif March 12, 2025 8:00am Wound Care. Non-pressure chronic ulcer o f unspecif March 12, 2025 9:43am Varicose veins of unspecified lower extr em (UNILAT March 25, 2025 7:13am Varicose veins of unspecified lower extr em (UNILAT March 25, 2025 9:15am S/P ABLATION RT LEG March 30, 2025 7:51a m Wound Care. Non-pressure chronic ulcer o f unspecif April 09, 2025 8:37am Post Sclerotherapy 2-4 WK FU April 14, 2025 1:49pm Wound Care. Non-pressure chronic ulcer o f unspecif April 16, 2025 8:45am Wound Care. Non-pressure chronic ulcer o f unspecif April 16, 2025 1:33pm Reason for Visit Admit Date Venous stasis ulcer of ankle January 01, 2025 1:44pm Ulcer of right lower extremity with fat layer exposed January 15, 2025 8:00am Chronic venous insufficiency January 15, 2025 8:00am Delayed wound healing January 15, 2025 8 :00am PVD (peripheral vascular disease) January 15, 2025 8:00am Ulcer of left lower extremity with fat l jason exposed January 15, 2025 8:00am Ulcer of right lower extremity with fat layer exposed February 12, 2025 8:00am Chronic venous insufficiency February 12, 2025 8:00am Delayed wound healing February 12, 2025 8 :00am PVD (peripheral vascular disease) February 12, 2025 8:00am Ulcer of left lower extremity with fat l jason exposed February 12, 2025 8:00am Ulcer of right lower extremity with fat layer exposed March 12, 2025 8:00am Chronic venous insufficiency March 12 025 8:00am Delayed wound healing March 12, 2025 8:0 0am PVD (peripheral vascular disease) March 122024 8:00am Ulcer of left lower extremity with fat l jason exposed March 12, 2025 8:00am Venous stasis ulcer of ankle March 25 025 7:13am Venous stasis ulcer of ankle April 14, 2025 1:49pm Ulcer of right lower extremity with fat layer exposed April 16, 2025 8:45am Chronic venous insufficiency April 16, 2025 8:45am Delayed wound healing April 16, 2025 8: 45am PVD (peripheral vascular disease) March 292024 8:45am Ulcer of left lower extremity with fat l jason exposed April 16, 2025 8:45am Reason for Referral Specialty Diagnoses / Procedures Referred By Cecilia ortiz Referred To Contact General Surgery Diagnoses Screening for colon cancer Procedures CONSULT TO GENERAL SURGERY OFFICE/OUTPATIENT [facility] 60-74 MINUTES Arvind Frausto MD [address] [place] [address] Referral ID Status Reason Start Date Expiration Date Visits Requested Visits Authorized [id number] Authorized PCP Requested Referral 2 10/28/2023 1 1 Additional Source Comments (unrecognized sect ion and content) No Status Records FoundNo Status Records FoundNo Status Records Found INFORMATION SOURCE (unrecogn ized section and content) DATE CREATED AUTHOR 08/24/2021 [facility] DATE CREATED AUTHOR AUTHOR'S ORGANIZ ATION 05/12/2025 [facility] DATE CREATED AUTHOR AUTHOR'S ORGANIZ ATION 05/13/2025 [facility] Goals (unrecognized section and content) Goals may be documented in a n alternate sectionGoals may be documented in an alternate sectionGoals may be documented in an alternate sectionGoals may be documented in an alternate sectionGoals may be documented in an alternate sectionGoals may be documented in an alternate sectionGoals may be documented in an alternate sectionGoals may be documented in an alternate sectionGoals may be documented in an alternate sectionGoals may be documented in an alternate sectionGoals may be documented in an alternate sectionGoals may be documented in an alternate sectionGoals may be documented in an alternate sectionGoals may be documented in an alternate sectionGoals may be documented in an alternate sectionGoals may be documented in an alternate sectionGoals may be documented in an alternate sectionGoals may be documented in an alternate sectionGoals may be documented in an alternate sectionGoals may be documented in an alternate sectionGoals may be documented in an alternate sectionGoals may be documented in an alternate sectionGoals may be documented in an alternate sectionGoals may be documented in an alternate sectionGoals may be documented in an alternate section Source Comments (unrecognize d section and content) In the event this informatio n is protected by the Federal Confidentiality of Alcohol and Drug Abuse Patient Records regulations: The Federal rules restrict any use of the information to criminally investigate or prosecute any alcohol or drug abuse patient.[place]healthIn the event this information is protected by the Federal Confidentiality of Alcohol and Drug Abuse Patient Records regulations: The Federal rules restrict any use of the information to criminally investigate or prosecute any alcohol or drug abuse patient.[place]healthIn the event this information is protected by the Federal Confidentiality of Alcohol and Drug Abuse Patient Records regulations: The Federal rules restrict any use of the information to criminally investigate or prosecute any alcohol or drug abuse patient.[place]healthIn the event this information is protected by the Federal Confidentiality of Alcohol and Drug Abuse Patient Records regulations: The Federal rules restrict any use of the information to criminally investigate or prosecute any alcohol or drug abuse patient.[place]healthIn the event this information is protected by the Federal Confidentiality of Alcohol and Drug Abuse Patient Records regulations: The Federal rules restrict any use of the information to criminally investigate or prosecute any alcohol or drug abuse patient.[place]healthIn the event this information is protected by the Federal Confidentiality of Alcohol and Drug Abuse Patient Records regulations: The Federal rules restrict any use of the information to criminally investigate or prosecute any alcohol or drug abuse patient.[place]healthIn the event this information is protected by the Federal Confidentiality of Alcohol and Drug Abuse Patient Records regulations: The Federal rules restrict any use of the information to criminally investigate or prosecute any alcohol or drug abuse patient.[place]healthIn the event this information is protected by the Federal Confidentiality of Alcohol and Drug Abuse Patient Records regulations: The Federal rules restrict any use of the information to criminally investigate or prosecute any alcohol or drug abuse patient.[place]healthIn the event this information is protected by the Federal Confidentiality of Alcohol and Drug Abuse Patient Records regulations: The Federal rules restrict any use of the information to criminally investigate or prosecute any alcohol or drug abuse patient.[place]healthIn the event this information is protected by the Federal Confidentiality of Alcohol and Drug Abuse Patient Records regulations: The Federal rules restrict any use of the information to criminally investigate or prosecute any alcohol or drug abuse patient.[place]healthIn the event this information is protected by the Federal Confidentiality of Alcohol and Drug Abuse Patient Records regulations: The Federal rules restrict any use of the information to criminally investigate or prosecute any alcohol or drug abuse patient.[place]healthIn the event this information is protected by the Federal Confidentiality of Alcohol and Drug Abuse Patient Records regulations: The Federal rules restrict any use of the information to criminally investigate or prosecute any alcohol or drug abuse patient.[place]healthIn the event this information is protected by the Federal Confidentiality of Alcohol and Drug Abuse Patient Records regulations: The Federal rules restrict any use of the information to criminally investigate or prosecute any alcohol or drug abuse patient.[place]healthIn the event this information is protected by the Federal Confidentiality of Alcohol and Drug Abuse Patient Records regulations: The Federal rules restrict any use of the information to criminally investigate or prosecute any alcohol or drug abuse patient.[place]healthIn the event this information is protected by the Federal Confidentiality of Alcohol and Drug Abuse Patient Records regulations: The Federal rules restrict any use of the information to criminally investigate or prosecute any alcohol or drug abuse patient.[place]healthIn the event this information is protected by the Federal Confidentiality of Alcohol and Drug Abuse Patient Records regulations: The Federal rules restrict any use of the information to criminally investigate or prosecute any alcohol or drug abuse patient.[place]healthIn the event this information is protected by the Federal Confidentiality of Alcohol and Drug Abuse Patient Records regulations: The Federal rules restrict any use of the information to criminally investigate or prosecute any alcohol or drug abuse patient.[place]healthIn the event this information is protected by the Federal Confidentiality of Alcohol and Drug Abuse Patient Records regulations: The Federal rules restrict any use of the information to criminally investigate or prosecute any alcohol or drug abuse patient.[place]healthIn the event this information is protected by the Federal Confidentiality of Alcohol and Drug Abuse Patient Records regulations: The Federal rules restrict any use of the information to criminally investigate or prosecute any alcohol or drug abuse patient.[place]healthIn the event this information is protected by the Federal Confidentiality of Alcohol and Drug Abuse Patient Records regulations: The Federal rules restrict any use of the information to criminally investigate or prosecute any alcohol or drug abuse patient.[place]healthIn the event this information is protected by the Federal Confidentiality of Alcohol and Drug Abuse Patient Records regulations: The Federal rules restrict any use of the information to criminally investigate or prosecute any alcohol or drug abuse patient.[place]healthIn the event this information is protected by the Federal Confidentiality of Alcohol and Drug Abuse Patient Records regulations: The Federal rules restrict any use of the information to criminally investigate or prosecute any alcohol or drug abuse patient.[place]healthIn the event this information is protected by the Federal Confidentiality of Alcohol and Drug Abuse Patient Records regulations: The Federal rules restrict any use of the information to criminally investigate or prosecute any alcohol or drug abuse patient.[facility] Reason for Visit (unrecogniz ed section and content) Reason Comments Orders Reason Comments Results Reason Onset Date Comments Refill Request 03/28/2022 Reason Onset Date Comments Refill Request 09/27/2022 Reason Comments Physical 6 month follow up Reason Onset Date Comments Refill Request 12/26/2022 Reason Onset Date Comments Dose Clarification Refill Request 05/08/2023 Reason Comments Physical Reason Onset Date Comments Refill Request 12/21/2023 Reason Comments Forms Preventative Care Fo rm Reason Comments Rash Left hand rash x 2 d ays Reason Comments F/U 6 Month Reason Onset Date Comments Refill Request 06/23/2023 Reason Comments F/U 6 months Reason Onset Date Comments Refill Request 12/15/2024 Reason Comments Forms Annual Physical Reason Comments 6 Month Exam Care Teams (unrecognized sec tion and content) Team Status: Active Member Role Status Dates Dr. George Frausto MD Primary Care Provider Acti ve Team Status: Active Member Role Status Dates Dr. Alice Amaya MD Attending Provider Active Start: January 01, 2025 Dr. Alice Amaya MD Other Provider Active Start: January 01, 2025 Dr. George Frausto MD Primary Care Provider Acti ve Start: January 01, 2025 Dr. George Frausto MD Referring Provider Active Start: January 01, 2025 Team Status: Inactive Member Role Status Dates Dr. George Frausto MD Primary Care Provider Acti ve Start: January 01, 2025 End: January 01, 2025 Dr. George Frausto MD Referring Provider Active Start: January 01, 2025 End: January 01, 2025 Dr. Christian Doty MD Attending Provider Active S tart: January 01, 2025 End: January 01, 2025 Team Status: Inactive Member Role Status Dates Dr. Alice Amaya MD Attending Provider Active Start: January 15, 2025 End: January 26, 2025 Dr. George Frausto MD Primary Care Provider Acti ve Start: January 15, 2025 End: January 26, 2025 Dr. George Frausto MD Referring Provider Active Start: January 15, 2025 End: January 26, 2025 Team Status: Active Member Role Status Dates Dr. Alice Amaya MD Attending Provider Active Start: January 15, 2025 Dr. Alice Amaya MD Other Provider Active Start: January 15, 2025 Dr. George Frausto MD Primary Care Provider Acti ve Start: January 15, 2025 Dr. George Frausto MD Referring Provider Active Start: January 15, 2025 Team Status: Active Member Role Status Dates Dr. Alice Amaya MD Attending Provider Active Start: January 29, 2025 Dr. Alice Amaya MD Other Provider Active Start: January 29, 2025 Dr. George Frausto MD Primary Care Provider Acti ve Start: January 29, 2025 Dr. George Frausto MD Referring Provider Active Start: January 29, 2025 Team Status: Inactive Member Role Status Dates Dr. Alice Amaya MD Attending Provider Active Start: February 12, 2025 End: February 25, 2025 Dr. George Frausto MD Primary Care Provider Acti ve Start: February 12, 2025 End: February 25, 2025 Dr. George Frausto MD Referring Provider Active Start: February 12, 2025 End: February 25, 2025 Team Status: Active Member Role Status Dates Dr. Alice Amaya MD Attending Provider Active Start: February 12, 2025 Dr. Alice Amaya MD Other Provider Active Start: February 12, 2025 Dr. George Frausto MD Primary Care Provider Acti ve Start: February 12, 2025 Dr. George Frausto MD Referring Provider Active Start: February 12, 2025 Team Status: Active Member Role Status Dates Dr. Alice Amaya MD Attending Provider Active Start: February 26, 2025 Dr. Alice Amaya MD Other Provider Active Start: February 26, 2025 Dr. George Frausto MD Primary Care Provider Acti ve Start: February 26, 2025 Dr. George Frausto MD Referring Provider Active Start: February 26, 2025 Team Status: Inactive Member Role Status Dates Dr. Alice Amaya MD Attending Provider Active Start: March 12, 2025 End: March 28, 2025 Dr. George Frausto MD Primary Care Provider Acti ve Start: March 12, 2025 End: March 28, 2025 Dr. George Frausto MD Referring Provider Active Start: March 12, 2025 End: March 28, 2025 Team Status: Active Member Role Status Dates Dr. Alice Amaya MD Attending Provider Active Start: March 12, 2025 Dr. Alice Amaya MD Other Provider Active Start: March 12, 2025 Dr. George Frausto MD Primary Care Provider Acti ve Start: March 12, 2025 Dr. George Frausto MD Referring Provider Active Start: March 12, 2025 Team Status: Inactive Member Role Status Dates Dr. George Frausto MD Primary Care Provider Acti ve Start: March 25, 2025 End: March 25, 2025 Dr. Christian Doty MD Attending Provider Active S tart: March 25, 2025 End: March 25, 2025 Dr. Christian Doty MD Referring Provider Active S tart: March 25, 2025 End: March 25, 2025 Team Status: Active Member Role Status Dates Dr. George Frausto MD Primary Care Provider Acti ve Start: March 25, 2025 Dr. Christian Doty MD Attending Provider Active S tart: March 25, 2025 Dr. Christian Doty MD Referring Provider Active S tart: March 25, 2025 Dr. Christian Doty MD Other Provider Active Start : March 25, 2025 Team Status: Inactive Member Role Status Dates Dr. George Frausto MD Primary Care Provider Acti ve Start: March 30, 2025 End: March 30, 2025 Dr. Christian Doty MD Attending Provider Active S tart: March 30, 2025 End: March 30, 2025 Dr. Christian Doty MD Referring Provider Active S tart: March 30, 2025 End: March 30, 2025 Team Status: Active Member Role Status Dates Dr. George Frausto MD Primary Care Provider Acti ve Start: March 30, 2025 Dr. Christian Doty MD Attending Provider Active S tart: March 30, 2025 BENJI Lino Referring Provider Active Star t: March 30, 2025 Team Status: Active Member Role Status Dates Dr. Alice Amaya MD Attending Provider Active Start: April 09, 2025 Dr. George Frausto MD Primary Care Provider Acti ve Start: April 09, 2025 Dr. George Frausto MD Referring Provider Active Start: April 09, 2025 Team Status: Active Member Role Status Dates Dr. Alice Amaya MD Attending Provider Active Start: April 09, 2025 Dr. Alice Amaya MD Other Provider Active Start: April 09, 2025 Dr. George Frausto MD Primary Care Provider Acti ve Start: April 09, 2025 Dr. George Frausto MD Referring Provider Active Start: April 09, 2025 Team Status: Inactive Member Role Status Dates Dr. George Frausto MD Primary Care Provider Acti ve Start: April 14, 2025 End: April 14, 2025 Dr. George Frausto MD Referring Provider Active Start: April 14, 2025 End: April 14, 2025 BENJI Lino Attending Provider Active Star t: April 14, 2025 End: April 14, 2025 Team Status: Inactive Member Role Status Dates Dr. George Frausto MD Primary Care Provider Acti ve Start: December 04, 2024 End: December 04, 2024 BENJI Lino Attending Provider Active Star t: December 04, 2024 End: December 04, 2024 Dr. Bruno Xiong MD Referring Provider Active Start: December 04, 2024 End: December 04, 2024 Team Status: Inactive Member Role Status Dates Dr. Alice Amaya MD Attending Provider Active Start: December 11, 2024 End: December 26, 2024 Dr. George Frausto MD Primary Care Provider Acti ve Start: December 11, 2024 End: December 26, 2024 Dr. George Frausto MD Referring Provider Active Start: December 11, 2024 End: December 26, 2024 Team Status: Active Member Role Status Dates Dr. Alice Amaya MD Attending Provider Active Start: December 11, 2024 Dr. Alice Amaya MD Other Provider Active Start: December 11, 2024 Dr. George Frausto MD Primary Care Provider Acti ve Start: December 11, 2024 Dr. George Frausto MD Referring Provider Active Start: December 11, 2024 Team Status: Active Member Role Status Dates Dr. George Frausto MD Primary Care Provider Acti ve Start: March 30, 2025 Dr. Christian Doty MD Attending Provider Active S tart: March 30, 2025 Pack Press Operator Relationship Specialty Start Date End Date Arvind Frausto MD [address] [place] [address] PCP - General Family Practice 07/23/20 Pack Press Operator Relationship Specialty Start Date End Date Arvind Frausto MD [address] [place] [place] [address] PCP - General Family Practice 07/23/20 Pack Press Operator Relationship Specialty Start Date End Date Arvind Frausto MD [address] [place] [place] [address] PCP - General Family Practice 07/23/20 Pack Press Operator Relationship Specialty Start Date End Date Arvind Frausto MD [address] [place] [address] PCP - General Family Medicine 07/23/20 Pack Press Operator Relationship Specialty Start Date End Date Arvind Frausto MD [address] [place] [address] PCP - General Family Medicine 07/23/20 Pack Press Operator Relationship Specialty Start Date End Date Arvind Frausto MD [address] [place] [place] [address] PCP - General Family Medicine 07/23/20 Pack Press Operator Relationship Specialty Start Date End Date Arvind Frausto MD [address] [place], [place] [address] PCP - General Family Medicine 07/23/20 Team Status: Active Member Role Status Dates No Primary Care Physician Family Provider Active Dr. George Frausto MD Primary Care Provider Acti ve Team Status: Active Member Role Status Dates Dr. Alice Amaya MD Attending Provider, Other Pr ovider Active Dr. George Frausto MD Primary Care Provider Acti ve Team Status: Active Member Role Status Dates Dr. George Frausto MD Primary Care Provider Acti ve Dr. Christian Doty MD Attending Provider, Referring Pro vider Active Team Status: Inactive Member Role Status Dates Dr. George Frausto MD Primary Care Provider, Ref erring Provider Active Dr. Christian Doty MD Attending Provider Active Team Status: Inactive Member Role Status Dates Dr. Christian Doty MD Attending Provider Active Dr. George Frausto MD Primary Care Provider Acti ve Team Status: Inactive Member Role Status Dates Dr. Alice Amaya MD Attending Provider Active Dr. George Frausot MD Primary Care Provider Acti ve Pack Press Operator Relationship Specialty Start Date End Date Arvind Frausto MD [address] [place], [place] [address] PCP - General Family Medicine 07/23/20 Pack Press Operator Relationship Specialty Start Date End Date Arvidn Frausto MD [address] [place], [place] [address] PCP - General Family Medicine 07/23/20 Pack Press Operator Relationship Specialty Start Date End Date Arvind Frausto MD [address] [place], [place] [address] PCP - General Family Medicine 07/23/20 Team Status: Active Member Role Status Dates Dr. Alice Amaya MD Attending Provider, Other Pr ovider Active Dr. George Frausto MD Primary Care Provider, Ref erring Provider Active Team Status: Inactive Member Role Status Dates Dr. Alice Amaya MD Attending Provider Active Dr. George Frausto MD Primary Care Provider, Ref erring Provider Active Pack Press Operator Relationship Specialty Start Date End Date Arvind Frausto MD [address] [place] [address] PCP - General Family Medicine 07/23/20 Pack Press Operator Relationship Specialty Start Date End Date Arvind Frausto MD [address] [place] [address] PCP - General Family Medicine 07/23/20 Pack Press Operator Relationship Specialty Start Date End Date Arvind Frausto MD [address] [place] [address] PCP - General Family Medicine 07/23/20 Pack Press Operator Relationship Specialty Start Date End Date Arvind Frausto MD [address] [place] [address] PCP - General Family Medicine 07/23/20 Pack Press Operator Relationship Specialty Start Date End Date Arvind Frausto MD [address] [place] [address] PCP - General Family Medicine 07/23/20 Pack Press Operator Relationship Specialty Start Date End Date Arvind Frausto MD [address] [place] [address] PCP - General Family Medicine 07/23/20 Pack Press Operator Relationship Specialty Start Date End Date Arvind Frausto MD [address] [place] [address] PCP - General Family Medicine 07/23/20 PodlogarBhavana APRN.SUPERVISOR [employer] [address] [place] [address] Plumbing Contractor Family Medicine 10/04/24 Pack Press Operator Relationship Specialty Start Date End Date Arvind Frausto MD [address] [place] [address] PCP - General Family Medicine 07/23/20 Podlogar, SANJAY Bateman.SUPERVISOR [employer] [address] [place] [address] Plumbing Contractor Family Medicine 10/04/24 Pack Press Operator Relationship Specialty Start Date End Date Arvind Frausto MD [address] [place] [address] PCP - General Family Medicine 07/23/20 PodlogarBhavana APRN.SUPERVISOR [employer] [address] [place] [address] Plumbing Contractor Family Medicine 10/04/24 Pack Press Operator Relationship Specialty Start Date End Date Arvind Frausto MD [address] [place] [address] PCP - General Family Medicine 07/23/20 PodlogarBhavana APRN.SUPER[employer]OR [employer] [address] [place] [address] Plumbing Contractor Family Medicine 10/04/24 Team Status: Active Member Role Status Dates Dr. Alice Amaya MD Attending Provider Active Start: October 16, 2024 Dr. Alice Amaya MD Other Provider Active Start: October 16, 2024 Dr. George Frausto MD Primary Care Provider Acti ve Start: October 16, 2024 Dr. George Frausto MD Referring Provider Active Start: October 16, 2024 Team Status: Inactive Member Role Status Dates Dr. Alice Amaya MD Attending Provider Active Start: October 23, 2024 End: October 28, 2024 Dr. George Frausto MD Primary Care Provider Acti ve Start: October 23, 2024 End: October 28, 2024 Dr. George Frausto MD Referring Provider Active Start: October 23, 2024 End: October 28, 2024 Team Status: Active Member Role Status Dates Dr. Alice Amaya MD Attending Provider Active Start: October 23, 2024 Dr. Alice Amaya MD Other Provider Active Start: October 23, 2024 Dr. George Frausto MD Primary Care Provider Acti ve Start: October 23, 2024 Dr. George Frausto MD Referring Provider Active Start: October 23, 2024 Team Status: Active Member Role Status Dates Dr. Alice Amaya MD Attending Provider Active Start: November 06, 2024 Dr. Alice Amaya MD Other Provider Active Start: November 06, 2024 Dr. George Frausto MD Primary Care Provider Acti ve Start: November 06, 2024 Dr. George Frausto MD Referring Provider Active Start: November 06, 2024 Team Status: Inactive Member Role Status Dates Dr. Alice Amaya MD Attending Provider Active Start: November 20, 2024 End: November 28, 2024 Dr. George Frausto MD Primary Care Provider Acti ve Start: November 20, 2024 End: November 28, 2024 Dr. George Frausto MD Referring Provider Active Start: November 20, 2024 End: November 28, 2024 Team Status: Active Member Role Status Dates Dr. Alice Amaya MD Attending Provider Active Start: November 20, 2024 Dr. Alice Amaya MD Other Provider Active Start: November 20, 2024 Dr. George Frausto MD Primary Care Provider Acti ve Start: November 20, 2024 Dr. George Frausto MD Referring Provider Active Start: November 20, 2024 Team Status: Active Member Role Status Dates Dr. George Frausto MD Primary Care Provider Acti ve Start: December 02, 2024 Dr. Christian Doty MD Attending Provider Active S tart: December 02, 2024 Dr. Alice Amaya MD Referring Provider Active Start: December 02, 2024 Team Status: Active Member Role Status Dates Dr. Alice Amaya MD Attending Provider Active Start: March 12, 2025 Dr. George Frausto MD Primary Care Provider Acti ve Start: March 12, 2025 Dr. George Frausto MD Referring Provider Active Start: March 12, 2025 Team Status: Active Member Role/Relationship Status Dates Dr. George Frausto MD Primary Care Provider Acti ve Team Status: Active Member Role/Relationship Status Dates Dr. Alice Amaya MD Attending Provider Active Start: January 01, 2025 Dr. Alice Amaya MD Other Provider Active Start: January 01, 2025 Dr. George Frausto MD Primary Care Provider Acti ve Start: January 01, 2025 Dr. George Frausto MD Referring Provider Active Start: January 01, 2025 Team Status: Inactive Member Role/Relationship Status Dates Dr. George Frausto MD Primary Care Provider Acti ve Start: January 01, 2025 End: January 01, 2025 Dr. George Frausto MD Referring Provider Active Start: January 01, 2025 End: January 01, 2025 Dr. Christian Doty MD Attending Provider Active S tart: January 01, 2025 End: January 01, 2025 Team Status: Inactive Member Role/Relationship Status Dates Dr. Alice Amaya MD Attending Provider Active Start: January 15, 2025 End: January 26, 2025 Dr. George Frausto MD Primary Care Provider Acti ve Start: January 15, 2025 End: January 26, 2025 Dr. George Frausto MD Referring Provider Active Start: January 15, 2025 End: January 26, 2025 Team Status: Active Member Role/Relationship Status Dates Dr. Alice Amaya MD Attending Provider Active Start: January 15, 2025 Dr. Alice Amaya MD Other Provider Active Start: January 15, 2025 Dr. George Frausto MD Primary Care Provider Acti ve Start: January 15, 2025 Dr. George Frausto MD Referring Provider Active Start: January 15, 2025 Team Status: Active Member Role/Relationship Status Dates Dr. Alice Amaya MD Attending Provider Active Start: January 29, 2025 Dr. Alice Amaya MD Other Provider Active Start: January 29, 2025 Dr. George Frausto MD Primary Care Provider Acti ve Start: January 29, 2025 Dr. George Frausto MD Referring Provider Active Start: January 29, 2025 Team Status: Inactive Member Role/Relationship Status Dates Dr. Alice Amaya MD Attending Provider Active Start: February 12, 2025 End: February 25, 2025 Dr. George Frausto MD Primary Care Provider Acti ve Start: February 12, 2025 End: February 25, 2025 Dr. George Frausto MD Referring Provider Active Start: February 12, 2025 End: February 25, 2025 Team Status: Active Member Role/Relationship Status Dates Dr. Alice Amaya MD Attending Provider Active Start: February 12, 2025 Dr. Alice Amaya MD Other Provider Active Start: February 12, 2025 Dr. George Frausto MD Primary Care Provider Acti ve Start: February 12, 2025 Dr. George Frausto MD Referring Provider Active Start: February 12, 2025 Team Status: Active Member Role/Relationship Status Dates Dr. Alice Amaya MD Attending Provider Active Start: February 26, 2025 Dr. Alice Amaya MD Other Provider Active Start: February 26, 2025 Dr. George Frausto MD Primary Care Provider Acti ve Start: February 26, 2025 Dr. George Frausto MD Referring Provider Active Start: February 26, 2025 Team Status: Inactive Member Role/Relationship Status Dates Dr. Alice Amaya MD Attending Provider Active Start: March 12, 2025 End: March 28, 2025 Dr. George Frausto MD Primary Care Provider Acti ve Start: March 12, 2025 End: March 28, 2025 Dr. George Frausto MD Referring Provider Active Start: March 12, 2025 End: March 28, 2025 Team Status: Active Member Role/Relationship Status Dates Dr. Alice Amaya MD Attending Provider Active Start: March 12, 2025 Dr. Alice Amaya MD Other Provider Active Start: March 12, 2025 Dr. George Frausto MD Primary Care Provider Acti ve Start: March 12, 2025 Dr. George Frausto MD Referring Provider Active Start: March 12, 2025 Team Status: Inactive Member Role/Relationship Status Dates Dr. George Frausto MD Primary Care Provider Acti ve Start: March 25, 2025 End: March 25, 2025 Dr. Christian Doty MD Attending Provider Active S tart: March 25, 2025 End: March 25, 2025 Dr. Christian Doty MD Referring Provider Active S tart: March 25, 2025 End: March 25, 2025 Team Status: Active Member Role/Relationship Status Dates Dr. George Frausto MD Primary Care Provider Acti ve Start: March 25, 2025 Dr. Christian Doty MD Attending Provider Active S tart: March 25, 2025 Dr. Christian Doty MD Referring Provider Active S tart: March 25, 2025 Dr. Christian Doty MD Other Provider Active Start : March 25, 2025 Team Status: Inactive Member Role/Relationship Status Dates Dr. George Frausto MD Primary Care Provider Acti ve Start: March 30, 2025 End: March 30, 2025 Dr. Christian Doty MD Attending Provider Active S tart: March 30, 2025 End: March 30, 2025 Dr. Christian Doty MD Referring Provider Active S tart: March 30, 2025 End: March 30, 2025 Team Status: Active Member Role/Relationship Status Dates Dr. George Frausto MD Primary Care Provider Acti ve Start: March 30, 2025 Dr. Christian Doty MD Attending Provider Active S tart: March 30, 2025 BENJI Lino Referring Provider Active Star t: March 30, 2025 Team Status: Active Member Role/Relationship Status Dates Dr. Alice Amaya MD Attending Provider Active Start: April 09, 2025 Dr. Alice Amaya MD Other Provider Active Start: April 09, 2025 Dr. George Frausto MD Primary Care Provider Acti ve Start: April 09, 2025 Dr. George Frausto MD Referring Provider Active Start: April 09, 2025 Team Status: Inactive Member Role/Relationship Status Dates Dr. George Frausto MD Primary Care Provider Acti ve Start: April 14, 2025 End: April 14, 2025 Dr. George Frausto MD Referring Provider Active Start: April 14, 2025 End: April 14, 2025 BENJI Lino Attending Provider Active Star t: April 14, 2025 End: April 14, 2025 Team Status: Inactive Member Role/Relationship Status Dates Dr. Alice Amaya MD Attending Provider Active Start: April 16, 2025 End: April 27, 2025 Dr. George Frausto MD Primary Care Provider Acti ve Start: April 16, 2025 End: April 27, 2025 Dr. George Frausto MD Referring Provider Active Start: April 16, 2025 End: April 27, 2025 Team Status: Active Member Role/Relationship Status Dates Dr. Alice Amaya MD Attending Provider Active Start: April 16, 2025 Dr. Alice Amaya MD Other Provider Active Start: April 16, 2025 Dr. George Frausto MD Primary Care Provider Acti ve Start: April 16, 2025 Dr. George Frausto MD Referring Provider Active Start: April 16, 2025 Pack Press Operator Relationship Specialty Start Date End Date Arvind Frausto MD [address] [place] [address] PCP - General Family Medicine 07/23/20 CarllogarBhavana APRN.CNP [address] [place] [address] [facility] 10/04/24 Marissa Fernandez APRN.[facility] [address] [place] [address] [facility] 04/09/25 FOR RECORDS PERTAINING TO PATIENTS WHO ARE OR HAVE BEEN ENROLLED IN A CHEMICAL DEPENDENCY/SUBSTANCEABUSE PROGRAM, SOME INFORMATION MAY BE OMITTED. This clinical summary was aggregated from multiple sources. Caution should be exercised in using it in the provision of clinical care. This summary normalizes information from multiple sources, and as a consequence, information in this document may materially change the coding, format and clinical context of patient data. In addition, data may be omitted in some cases. CLINICAL DECISIONS SHOULD BE BASED ON THE PRIMARY CLINICAL RECORDS. [facility] [employer] [facility]. provides no warranty or guarantee of the accuracy or completeness of information in this document.
--- NOTE | 2025-05-14 19:16 | OP.PCM_ITS ---
Operative Report (Standard) Operative Information Date of Procedure: 05/14/25 Pre-Operative Diagnosis: venous insufficiency with ulceration, left lower extremity Post-Operative Diagnosis: same Surgery/Procedure Performed: ultrasound guided venous access, aborted foam sclerotherapy attempt holistic pulser: No Type of Anesthesia: Local Procedure Start Time: 08:45 Procedure Stop Time: 09:35 Select all DRAINS/GRAFTS/IMPLANTS that apply: None Estimated Blood Loss: 1 Specimen collected: No Description of surgery: HPI: Patient is a 59-year-old male with venous insufficiency with ulceration of the bilateral extremities has undergone multiple bilateral lower extremity venous ablation procedures. He has a short segment of the very distal great saphenous vein and associated varicosities that are currently involved in a medial malleolus wound that has failed to resolve with compression therapy. Given the nature of his current anatomy he is not able to be treated with thermal or chemical ablation so he is taken now for attempted foam sclerotherapy to treat the culprit vessels. Description of procedure: Upon obtaining informed consent and verification of correct patient procedure site the patient was taken to the Cardiovascular Physician Assistant where he was positioned prepped and draped in usual sterile fashion. Timeouts performed and ultrasound used to evaluate the incompetent veins adjacent to the malleolus wound. There was a short segment of the remnant of the great saphenous vein from the bed of the wound proximal to the distal medial calf. This appeared to have adequate length to access with our micropuncture needle and wire to facilitate foam infusion. Skin overlying the vessel was anesthetized with 1% lidocaine and the vessel accessed under ultrasound guidance with a micropuncture needle wire. We advanced the wire only a short distance before meeting significant resistance with what appeared to correlate with an area of angulation and tortuosity. Despite multiple efforts we were unable to advance our wire to obtain adequate support to place our micropuncture sheath. Further efforts were made with an Angiocath and multiple other locations that we were never able to successfully gain adequate access to confidently infuse the foam. The vessels begin to demonstrate significant spasm after multiple efforts and was felt that further attempts would be futile so manual pressure was held and a dry sterile dressing applied after which the patient was taken to the cover area with plan discharge home with an attempt at later time with prehydration and different access needle technique. Surgical Findings: small/tortuous GSV and varicosities Complications Complications: Yes Complication Details: unable to advance wire/micro sheath
== END 2025-05-14 09:55 | disposition home or self-care (01) ==
PROVIDERS: PCP Family Medicine; Referring Provider Surgery Trauma Surgery; Visit Provider Surgery Trauma Surgery
DX: I83.023 Varicose veins of left lower extremity with ulcer of ankle (principal); L97.322 Non-pressure chronic ulcer of left ankle with fat layer exposed; I87.2 Venous insufficiency (chronic) (peripheral); I10 Essential (primary) hypertension; Z79.899 Other long term (current) drug therapy; Z87.891 Personal history of nicotine dependence
CPT/HCPCS: C1894; A4216

== ENCOUNTER 2025-05-21 08:00 | Outpatient (RCR) | payer OTHER, SELFPAY ==
--- NOTE | 2025-04-30 13:26 | PN.PCM_ITS ---
History of Present Illness Date of Service: 04/30/25 Chief Complaint: Bilateral lower extremity ulcers History of Wound: This is a 54-year-old male presents to wound healing center with a long-standing history of chronic venous insufficiency, chronic venous hypertension, lower extremity edema, lower extremity pain, and chronic left lower extremity ulcer. The patient has previously undergone endovenous laser ablation of the left and right great saphenous vein, the small saphenous vein, the left accessory saphenous vein, and an incompetent left calf gun perforator loader vein located 15 cm proximal to the left medial malleolus. He is currently wearing graduated compression stockings which are documented to be 20-30 mmHg compression and these are thigh high. He reports great compliance with use. He is also had previous arterial work-up with no intervention recommended by letter, his vascular surgeon. He denies taking nutritional supplementation. He saw dermatology and had a biopsy of the ulcer site. He also was previously treated by infectious disease for various contaminations and infections. He is not antibiotics at this time nor does he have any redness or odor coming from the wound. He denies fever, chill, nausea, vomiting, loss of appetite. 05/18/22: Mr. Jeronimo presents with a new right lower extremity ulceration. He states that this has been present for months and he has been trying to manage it at home without any significant improvement. Opened up months ago, no known pr ecipitating factor. Has been applying wound dressings without any significant improvement. He reports increased drainage. Denies significant pain. No chills, fever or feeling of unwell. 10/16/24: Mr. Jeronimo presents with a new right lower extremity ulceration. He states that it started out as a very small area that was slipping and then in the last week, became rather extensive. He also reports a foul smell. Has noted increase lower extremity edema. He states that he has been wearing his compression (20 to 30 mmHg) consistently. No chills, fever or otherwise feeling of unwell. Also has a new area on his left lower medial leg. He states that he has been applying same 1 products to these new areas. Progress of Wound: No acute concerns reported at this time. He states that he has been on his feet longer/more lately. Denies any increased drainage, pain or foul smell. Charges/Coding Procedures Integumentary [id number]: [id number] Lakeisha subq tissue 20 sq cm/< Physical Exam Const alert, oriented x3 and no apparent distress General Appearance: cooperative and comfortable HEENT normocephalic Head and Scalp: normal to inspection, normocephalic and atraumatic Eyes EOMs intact bilaterally Neck full ROM and supple General: normal visual inspection Resp normal respiratory effort Effort and Inspection: able to speak in complete sentences Extremity normal to inspection General Extremity: edema Skin General Skin Exam: dry skin Wounds: wounds noted size Size: See clinical note, bed granulating well, margins macerated, well defined and surrounding erythema, no odor, open and surrounding erythema Neuro oriented x3, CN's II-XII intact bilaterally, moves all extremities and no focal motor deficits Psych mental status grossly normal, thought process normal, cooperative and affect normal Debridement Note Debridement Note Wound debrided: Right Medial ankle Type of Debridement: Excisional debridement Anesthesia Used: 5% Lidocaine Gel Depth: Down to and including healthy tissue and in the subcutaneous layer Percentage of wound debrided: 100 Instrument Used: 5mm curette Tissue Removed: Devitalized tissue Severity: Fat Layer Exposed Amount of bleeding with debridement: Mild Bleeding Controlled with: Pressure Patient tolerated procedure: Patient tolerated procedure well Post-Debridement Measurements and Additional Note: Post-Debridement Measurements/Treatment WC - Nurse 1 - General Ulcer Assessment Start: 04/30/25 08:56 Freq: Status: Active Protocol: SHANTA Activity Type Activity Date Activity User E-sign Co-sign Detail Recorded Client Recorded Date Recorded By Document 04/30/25 08:58 CA [id number] 04/30/25 09:04 CA 04/30/25 08:58 Pain Scale: 0-10 Numeric Is Patient Pain Free? Yes - Nurse 1 - General Ulcer Measurement Start: 04/30/25 08:56 Freq: Status: Active Protocol: Activity Type Activity Date Activity User E-sign Co-sign Detail Recorded Client Recorded Date Recorded By Document 04/30/25 08:58 CA [id number] 04/30/25 09:04 CA 04/30/25 08:58 Wound Center Nurse 1 #18 Right Medial Ankle -Current Size (cm) - Length 2 -Current Size (cm) - Width 1.3 -Current Size (cm) - Depth 0.1 -Total Square Cm 2.6 -Date of Last Picture (Recall this 04/30/25 field) -Photo Taken Yes -Epithelialization Large 67-100% -Tunneling No -Undermining/Tunneling No -Circular Undermining No -Exudate Amt Medium -Exudate Type Serosanguineous -Wound Margin Thickened & Rolled Under -Granulation Amt Large (67-100%) -Granulation Quality Pale,Show Low -Necrosis Amt Small (1-33%) -Necrotic Tissue Type Adherent Slough -Texture (Ara-wound Skin Appearance) Assessed -Moisture (Ara-wound Skin Appearance) Assessed -Temperature (Ara-wound Skin No Abnormality Appearance) (Pt Warm) -Tenderness on Palpation (Ara-wound No Skin Appearance) -Ulcer Cleansing Soap and Water -Foul Odor after Cleansing No -Anesthetic Used 5% Lidocaine Gel #10 Left Medial Ankle -Current Size (cm) - Length 3.5 -Current Size (cm) - Width 1.3 -Current Size (cm) - Depth 0.3 -Total Square Cm 4.55 -Date of Last Picture (Recall this 04/30/25 field) -Photo Taken Yes -Tunneling No -Undermining/Tunneling No -Circular Undermining No -Exudate Amt Medium -Exudate Type Serosanguineous -Wound Margin Thickened & Rolled Under -Granulation Amt Large (67-100%) -Granulation Quality Pale,Show Low -Necrosis Amt Small (1-33%) -Necrotic Tissue Type Adherent Slough -Texture (Ara-wound Skin Appearance) Assessed -Moisture (Ara-wound Skin Appearance) Assessed -Color (Ara-wound Skin Appearance) Assessed -Temperature (Ara-wound Skin No Abnormality Appearance) (Pt Warm) -Tenderness on Palpation (Ara-wound No Skin Appearance) -Ulcer Cleansing Soap and Water -Foul Odor after Cleansing No -Anesthetic Used 5% Lidocaine Gel WC - Nurse 2 - General Ulcer CM Notes Start: 04/30/25 08:56 Freq: Status: Active Protocol: Activity Type Activity Date Activity User E-sign Co-sign Detail Recorded Client Recorded Date Recorded By Document 04/30/25 09:22 [id number] 04/30/25 09:28 04/30/25 09:22 Wound Center Nurse 2 #18 Right Medial Ankle -Time 09:23 -Correct Patient Yes -Correct Side, Site, Position Yes -Correct Procedure Yes -Procedure Performed Yes -Type of Procedure Debridement -Clinical Debridement Subcutaneous -Tissue Removed Subcutaneous -Post Debridement (cm) - Length 1.8 -Post Debridement (cm) - Width 1.5 -Post Debridement (cm) - Depth 0.1 -Total Square (Post) (cm) 2.70 -Area of Debridement (cm) - Length 1.8 -Area of Debridement (cm) - Width 1.5 -Total Square (Area) (cm) 2.70 -Tunneling No -Undermining/Tunneling No -Circular Undermining No -Wound/Ulcer Outcome Not Healed -Ulcer Cleansing Rinsed/ Irrigated with Saline -Foul Odor after Cleansing No -Bioengineered Tissue No -Bleeding Controlled with Pressure -Treatment Response Procedure Tolerated Well -Offloading No -Debridement - Subq, 1st 20sq cm No #10 Left Medial Ankle -Time 09:23 -Correct Patient Yes -Correct Side, Site, Position Yes -Correct Procedure Yes -Procedure Performed Yes -Type of Procedure Debridement -Clinical Debridement Subcutaneous -Tissue Removed Subcutaneous -Post Debridement (cm) - Length 3.0 -Post Debridement (cm) - Width 1.1 -Post Debridement (cm) - Depth 0.3 -Total Square (Post) (cm) 3.30 -Area of Debridement (cm) - Length 3.0 -Area of Debridement (cm) - Width 1.1 -Total Square (Area) (cm) 3.30 -Tunneling No -Undermining/Tunneling No -Circular Undermining No -Wound/Ulcer Outcome Not Healed -Ulcer Cleansing Rinsed/ Irrigated with Saline -Foul Odor after Cleansing No -Bioengineered Tissue No -Bleeding Controlled with Pressure -Treatment Response Procedure Tolerated Well -Offloading No -Debridement - Subq, 1st 20sq cm Yes Pain Scale: 0-10 Numeric Is Patient Pain Free? Yes - Nurse 3 - General Ulcer D/C NN Start: 04/30/25 08:56 Freq: Status: Active Protocol: Activity Type Activity Date Activity User E-sign Co-sign Detail Recorded Client Recorded Date Recorded By Document 04/30/25 09:43 NANDO [id number] 04/30/25 09:44 DS 04/30/25 09:43 Wound Care Center Nurse 3 #18 Right Medial Ankle -Other Dressing abd -Primary Dressing Covered/Secured with Secured with Tape #10 Left Medial Ankle -Other Dressing abd -Primary Dressing Covered/Secured with Secured with Tape Pain Scale: 0-10 Numeric Is Patient Pain Free? Yes WC - Visit Discharge Discharge Condition Stable Ambulatory Status Ambulatory Transportation Private Auto Additional Wound Wound debrided: Left (medial ankle ) Type of Debridement: Excisional debridement Anesthesia Used: 5% Lidocaine Gel Depth: Down to and including healthy tissue and in the subcutaneous layer Percentage of wound debrided: 100 Instrument Used: 5mm curette Tissue Removed: Slough and devitalized tissue Severity: Fat Layer Exposed Amount of bleeding with debridement: Mild Bleeding Controlled with: Pressure Patient tolerated procedure: Patient tolerated procedure well Assessment/Plan Assessment/Plan (1) Ulcer of left lower extremity with fat layer exposed: CODE(S): L97.922 - Non-pressure chronic ulcer of unspecified part of left lower leg with fat layer exposed (2) PVD (peripheral vascular disease): CODE(S): I73.9 - Peripheral vascular disease, unspecified (3) Chronic venous insufficiency: CODE(S): I87.2 - Venous insufficiency (chronic) (peripheral) (4) Delayed wound healing: CODE(S): T14.8XXD - Other injury of unspecified body region, subsequent encounter (5) Ulcer of right lower extremity with fat layer exposed: CODE(S): L97.912 - Non-pressure chronic ulcer of unspecified part of right lower leg with fat layer exposed PLAN: Plan Debridement done as documented above, procedure was well-tolerated. No acute concerns at this time. Both ulcers with some improvement from his last visit. Had a culture done 2 weeks ago however in the light of improvement, minimal growth on culture and recurrent use of antibiotics, will hold off oral antibiotics at this time. For now, continue 30 minutes Dakin's soak daily. Apply Bactroban, Aquacel extra to ulcers, cover with KerraMax care. Consistent use of compression, leg elevation and exercise as tolerated strongly recommended, he voiced understanding. Compliance with dressing changes also strongly recommended. Increased protein intake, protein supplements, zinc and vitamin D. Optimal diabetes control discussed, last A1C was 5.9. Also advised that he moisturize his skin consistently. His questions were answered, and he was advised to call with any further questions or concerns. Follow-up in 2 weeks per patient preference. This note was generated with [employer] software. It may contain incorrect words, spelling, and punctuation that were not noted in checking the note before signing.
--- NOTE | 2025-05-04 08:43 | WC ---
PHOTO 04/30/25 RIGHT [facility]
--- NOTE | 2025-05-04 08:47 | WC ---
PHOTO 04/30/25 LEFT MED ANKLE
[2025-05-21 08:08] VITALS: BP 161/94; PULSE 102; RESP 18; TEMP 36.1
--- NOTE | 2025-05-21 08:58 | PCM.WC.PN ---
History of Present Illness Date of Service: 05/21/25 Chief Complaint: Bilateral lower extremity ulcers History of Wound: This is a 54-year-old male presents to wound healing center with a long-standing history of chronic venous insufficiency, chronic venous hypertension, lower extremity edema, lower extremity pain, and chronic left lower extremity ulcer. The patient has previously undergone endovenous laser ablation of the left and right great saphenous vein, the small saphenous vein, the left accessory saphenous vein, and an incompetent left calf new product trainer vein located 15 cm proximal to the left medial malleolus. He is currently wearing graduated compression stockings which are documented to be 20-30 mmHg compression and these are thigh high. He reports great compliance with use. He is also had previous arterial work-up with no intervention recommended by letter, his vascular surgeon. He denies taking nutritional supplementation. He saw dermatology and had a biopsy of the ulcer site. He also was previously treated by infectious disease for various contaminations and infections. He is not antibiotics at this time nor does he have any redness or odor coming from the wound. He denies fever, chill, nausea, vomiting, loss of appetite. 05/18/22: Mr. Jeronimo presents with a new right lower extremity ulceration. He states that this has been present for months and he has been trying to manage it at home without any significant improvement. Opened up months ago, no known precipitating factor. Has been applying wound dressings without any significant improvement. He reports increased drainage. Denies significant pain. No chills, fever or feeling of unwell. 10/16/24: Mr. Jeronimo presents with a new right lower extremity ulceration. He states that it started out as a very small area that was slipping and then in the last week, became rather extensive. He also reports a foul smell. Has noted increase lower extremity edema. He states that he has been wearing his compression (20 to 30 mmHg) consistently. No chills, fever or otherwise feeling of unwell. Also has a new area on his left lower medial leg. He states that he has been applying same 1 products to these new areas. Progress of Wound: No acute concerns reported at this time. Grossly stable. An attempt was made at foam sclerotherapy to left lower extremity however due to difficulty advancing the wire/sheath, this was rescheduled. No concerns reported. Objective Data Objective Data Vital Signs: Vital Signs Temp Pulse Resp BP O2 Del Method 97.0 F L 102 H 18 161/94 H Room Air 05/21/25 08:08 05/21/25 08:08 05/21/25 08:08 05/21/25 08:08 05/21/25 08:08 Oxygen Delivery Method Room Air Charges/Coding Procedures Integumentary 111xxx-113xx: [id number] Lakeisha subq tissue 20 sq cm/< Physical Exam Const alert, oriented x3 and no apparent distress General Appearance: cooperative and comfortable HEENT normocephalic Head and Scalp: normal to inspection, normocephalic and atraumatic Eyes EOMs intact bilaterally Neck full ROM and supple General: normal visual inspection Resp normal respiratory effort Effort and Inspection: able to speak in complete sentences Extremity normal to inspection General Extremity: edema Skin General Skin Exam: dry skin Wounds: wounds noted size Size: See clinical note, bed granulating well, margins well defined, no odor, open and surrounding erythema Neuro oriented x3, CN's II-XII intact bilaterally, moves all extremities and no focal motor deficits Psych mental status grossly normal, thought process normal, cooperative and affect normal Debridement Note Debridement Note Wound debrided: Right lower extremity/medial ankle Type of Debridement: Excisional debridement Anesthesia Used: 5% Lidocaine Gel Depth: Down to and including healthy tissue and in the subcutaneous layer Percentage of wound debrided: 100 Instrument Used: 3mm curette Tissue Removed: Slough and devitalized tissue Severity: Fat Layer Exposed Amount of bleeding with debridement: Mild Bleeding Controlled with: Pressure Patient tolerated procedure: Patient tolerated procedure well Post-Debridement Measurements and Additional Note: Post-Debridement Measurements/Treatment - Nurse 1 - General Ulcer Assessment Start: 04/30/25 08:56 Freq: Status: Active Protocol: [email or web address].[email or web address] Activity Type Activity Date Activity User E-sign Co-sign Detail Recorded Client Recorded Date Recorded By Document 04/30/25 08:58 FL [id number] 04/30/25 09:04 FL Document 05/21/25 08:08 KW [id number] 05/21/25 08:14 KW 04/30/25 05/21/25 08:58 08:08 - Today's Visit Information Type of service Follow-up Visit (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 Any new allergies or adverse reactions No Had a fall/change in ADL's that may No increase risk of falls Signs or symptoms of abuse and/or No neglect since last visit Have you been in the hospital since your No last visit? Has dressing in place as prescribed Yes Has compression in place as prescribed Yes Has offloadiing in place as prescribed N/A Experienced any changes in pain level or No management Left Footwear Regular Shoe Right Footwear Regular Shoe Pain Scale: 0-10 Numeric Is Patient Pain Free? Yes Yes WC - Nurse 1 - General Ulcer Measurement Start: 04/30/25 08:56 Freq: Status: Active Protocol: Activity Type Activity Date Activity User E-sign Co-sign Detail Recorded Client Recorded Date Recorded By Document 04/30/25 08:58 FL [id number] 04/30/25 09:04 MT Document 05/21/25 08:08 [id number] 05/21/25 08:14 04/30/25 05/21/25 08:58 08:08 Wound Center Nurse 1 #18 Right Medial Ankle -Current Size (cm) - Length 2 1.5 -Current Size (cm) - Width 1.3 1 -Current Size (cm) - Depth 0.1 0.2 -Total Square Cm 2.6 1.5 -Date of Last Picture (Recall this 04/30/25 05/21/25 field) -Photo Taken Yes -Epithelialization Large 67-100% -Tunneling No -Undermining/Tunneling No -Circular Undermining No -Exudate Amt Medium Medium -Exudate Type Serosanguineous Serosanguineous -Wound Margin Thickened & Thickened Rolled Under -Granulation Amt Large (67-100%) Large (67-100%) -Granulation Quality Pale,Northwoods Northwoods -Necrosis Amt Small (1-33%) Small (1-33%) -Necrotic Tissue Type Adherent Slough Adherent Slough -Texture (Ara-wound Skin Appearance) Assessed Assessed -Moisture (Ara-wound Skin Appearance) Assessed Assessed,Dry/ Scaly -Color (Ara-wound Skin Appearance) Assessed -Temperature (Ara-wound Skin No Abnormality No Abnormality Appearance) (Pt Warm) (Pt Warm) -Tenderness on Palpation (Ara-wound No No Skin Appearance) -Ulcer Cleansing Soap and Water Soap and Water -Foul Odor after Cleansing No No -Anesthetic Used 5% Lidocaine 5% Lidocaine Gel Gel #10 Left Medial Ankle -Current Size (cm) - Length 3.5 2.4 -Current Size (cm) - Width 1.3 1 -Current Size (cm) - Depth 0.3 0.3 -Total Square Cm 4.55 2.4 -Date of Last Picture (Recall this 04/30/25 05/21/25 field) -Photo Taken Yes -Tunneling No -Undermining/Tunneling No -Circular Undermining No -Exudate Amt Medium Medium -Exudate Type Serosanguineous Serosanguineous -Wound Margin Thickened & Thickened Rolled Under -Granulation Amt Large (67-100%) Large (67-100%) -Granulation Quality Pale,Northwoods Northwoods -Necrosis Amt Small (1-33%) Small (1-33%) -Necrotic Tissue Type Adherent Slough Adherent Slough -Texture (Ara-wound Skin Appearance) Assessed Assessed -Moisture (Ara-wound Skin Appearance) Assessed Assessed,Dry/ Scaly -Color (Ara-wound Skin Appearance) Assessed Assessed -Temperature (Ara-wound Skin No Abnormality No Abnormality Appearance) (Pt Warm) (Pt Warm) -Tenderness on Palpation (Ara-wound No No Skin Appearance) -Ulcer Cleansing Soap and Water Soap and Water -Foul Odor after Cleansing No No -Anesthetic Used 5% Lidocaine 5% Lidocaine Gel Gel WC - Nurse 2 - General Ulcer CM Notes Start: 04/30/25 08:56 Freq: Status: Active Protocol: Activity Type Activity Date Activity User E-sign Co-sign Detail Recorded Client Recorded Date Recorded By Document 04/30/25 09:22 GM [id number] 04/30/25 09:28 GM Document 05/21/25 08:35 DS [id number] 05/21/25 08:40 DS 07/03/25 07/24/25 09:22 08:35 Wound Center Nurse 2 #18 Right Medial Ankle -Time 09:23 08:35 -Correct Patient Yes Yes -Correct Side, Site, Position Yes Yes -Correct Procedure Yes Yes -Procedure Performed Yes Yes -Type of Procedure Debridement Debridement -Clinical Debridement Subcutaneous Subcutaneous -Tissue Removed Subcutaneous Subcutaneous -Post Debridement (cm) - Length 1.8 1.6 -Post Debridement (cm) - Width 1.5 1.1 -Post Debridement (cm) - Depth 0.1 0.1 -Total Square (Post) (cm) 2.70 1.76 -Area of Debridement (cm) - Length 1.8 1.6 -Area of Debridement (cm) - Width 1.5 1.1 -Total Square (Area) (cm) 2.70 1.76 -Tunneling No No -Undermining/Tunneling No No -Circular Undermining No No -Wound/Ulcer Outcome Not Healed Not Healed -Ulcer Cleansing Rinsed/ Rinsed/ Irrigated with Irrigated with Saline Saline -Foul Odor after Cleansing No No -Bioengineered Tissue No No -Bleeding Controlled with Pressure Pressure -Treatment Response Procedure Procedure Tolerated Well Tolerated Well -Offloading No -Debridement - Subq, 1st 20sq cm No Yes #10 Left Medial Ankle -Time 09:23 08:36 -Correct Patient Yes Yes -Correct Side, Site, Position Yes Yes -Correct Procedure Yes Yes -Procedure Performed Yes Yes -Type of Procedure Debridement Debridement -Clinical Debridement Subcutaneous Subcutaneous -Tissue Removed Subcutaneous Subcutaneous -Post Debridement (cm) - Length 3.0 2.9 -Post Debridement (cm) - Width 1.1 1.0 -Post Debridement (cm) - Depth 0.3 0.4 -Total Square (Post) (cm) 3.30 2.90 -Area of Debridement (cm) - Length 3.0 2.9 -Area of Debridement (cm) - Width 1.1 1.0 -Total Square (Area) (cm) 3.30 2.90 -Tunneling No No -Undermining/Tunneling No No -Circular Undermining No No -Wound/Ulcer Outcome Not Healed Not Healed -Ulcer Cleansing Rinsed/ Rinsed/ Irrigated with Irrigated with Saline Saline -Foul Odor after Cleansing No No -Bioengineered Tissue No No -Bleeding Controlled with Pressure Pressure -Treatment Response Procedure Procedure Tolerated Well Tolerated Well -Offloading No -Debridement - Subq, 1st 20sq cm Yes No Pain Scale: 0-10 Numeric Is Patient Pain Free? Yes Yes - Nurse 3 - General Ulcer D/C NN Start: 04/30/25 08:56 Freq: Status: Active Protocol: Activity Type Activity Date Activity User E-sign Co-sign Detail Recorded Client Recorded Date Recorded By Document 04/30/25 09:43 DS [id number] 04/30/25 09:44 DS Document 05/21/25 08:47 CP [id number] 05/21/25 08:48 CP 04/30/25 05/21/25 09:43 08:47 Wound Care Center Nurse 3 #18 Right Medial Ankle -Ulcer Cleansing Rinsed/ Irrigated with Saline -Other Dressing abd -Primary Dressing Covered/Secured with Secured with Dry Gauze, Tape Secured with Tape #10 Left Medial Ankle -Ulcer Cleansing Rinsed/ Irrigated with Saline -Other Dressing abd -Primary Dressing Covered/Secured with Secured with Dry Gauze, Tape Secured with Tape Pain Scale: 0-10 Numeric Is Patient Pain Free? Yes Yes - Visit Discharge Discharge Condition Stable Stable Ambulatory Status Ambulatory Ambulatory Transportation Private Auto Private Auto Clinical Summary of Care Provided Yes Notes: pt going home to shower and will redress wound per order Additional Wound Wound debrided: Left lower extremity/medial ankle Type of Debridement: Excisional debridement Depth: Down to and including healthy tissue and in the subcutaneous layer Percentage of wound debrided: 100 Instrument Used: 5mm curette Tissue Removed: Slough and devitalized tissue Severity: Fat Layer Exposed Amount of bleeding with debridement: Mild Bleeding Controlled with: Pressure Patient tolerated procedure: Patient tolerated procedure well Assessment/Plan Assessment/Plan (1) Ulcer of left lower extremity with fat layer exposed: CODE(S): L97.922 - Non-pressure chronic ulcer of unspecified part of left lower leg with fat layer exposed (2) PVD (peripheral vascular disease): CODE(S): I73.9 - Peripheral vascular disease, unspecified (3) Chronic venous insufficiency: CODE(S): I87.2 - Venous insufficiency (chronic) (peripheral) (4) Delayed wound healing: CODE(S): T14.8XXD - Other injury of unspecified body region, subsequent encounter (5) Ulcer of right lower extremity with fat layer exposed: CODE(S): L97.912 - Non-pressure chronic ulcer of unspecified part of right lower leg with fat layer exposed PLAN: Plan Debridement done as documented above, procedure was well-tolerated. No acute concerns at this time. Both ulcers with some improvement from his last visit. Recently had a visit with his primary care physician, he states he had an A1c done but does not remember. No medication changes. Was started on an antibiotic due to rash on his upper extremity. As above, recent failed attempt at foam sclerotherapy to the left lower extremity with plan for rescheduling at a later date. Continue 30 minutes Dakin's soak daily. Apply Bactroban, Aquacel extra to ulcers, cover with KerraMax care. Consistent use of compression, leg elevation and exercise as tolerated strongly recommended, he voiced understanding. Compliance with dressing changes also strongly recommended. Increased protein intake, protein supplements, zinc and vitamin D. Optimal diabetes control discussed, he was advised to update with his A1c, he voiced understanding. Also advised that he moisturize his skin consistently. His questions were answered, and he was advised to call with any further questions or concerns. Follow-up in 2 weeks per patient preference. This note was generated with [employer] dictation software. It may contain incorrect words, spelling, and punctuation that were not noted in checking the note before signing.
--- NOTE | 2025-05-21 15:17 | WC ---
PHOTO-LEFT MED FOOT 05/21/25
--- NOTE | 2025-05-21 15:20 | WC ---
PHOTO-RIGHT MED FOOT 05/21/25
== END 2025-05-28 23:59 | disposition home or self-care (01) ==
LOC: WC 08:00
PROVIDERS: PCP Family Medicine; Referring Provider Family Medicine; Visit Provider Internal Medicine
DX: I87.312 Chronic venous hypertension (idiopathic) with ulcer of left lower extremity (principal); L97.312 Non-pressure chronic ulcer of right ankle with fat layer exposed; L97.322 Non-pressure chronic ulcer of left ankle with fat layer exposed; R60.0 Localized edema; I87.2 Venous insufficiency (chronic) (peripheral); I73.9 Peripheral vascular disease, unspecified
CPT/HCPCS: 11042

== ENCOUNTER 2025-06-18 08:00 | Outpatient (RCR) | payer OTHER, SELFPAY ==
[2025-06-04 08:05] VITALS: BP 168/97; PULSE 94; RESP 18; TEMP 36.1
--- NOTE | 2025-06-04 09:20 | PN.PCM_ITS ---
History of Present Illness Date of Service: 06/04/25 Chief Complaint: Bilateral lower extremity ulcers History of Wound: This is a 54-year-old male presents to wound healing center with a long-standing history of chronic venous insufficiency, chronic venous hypertension, lower extremity edema, lower extremity pain, and chronic left lower extremity ulcer. The patient has previously undergone endovenous laser ablation of the left and right great saphenous vein, the small saphenous vein, the left accessory saphenous vein, and an incompetent left calf power manager vein located 15 cm proximal to the left medial malleolus. He is currently wearing graduated compression stockings which are documented to be 20-30 mmHg compression and these are thigh high. He reports great compliance with use. He is also had previous arterial work-up with no intervention recommended by letter, his vascular surgeon. He denies taking nutritional supplementation. He saw dermatology and had a biopsy of the ulcer site. He also was previously treated by infectious disease for various contaminations and infections. He is not antibiotics at this time nor does he have any redness or odor coming from the wound. He denies fever, chill, nausea, vomiting, loss of appetite. 05/18/22: Mr. Jeronimo presents with a new right lower extremity ulceration. He states that this has been present for months and he has been trying to manage it at home without any significant improvement. Opened up months ago, no known pr ecipitating factor. Has been applying wound dressings without any significant improvement. He reports increased drainage. Denies significant pain. No chills, fever or feeling of unwell. 10/16/24: Mr. Jeronimo presents with a new right lower extremity ulceration. He states that it started out as a very small area that was slipping and then in the last week, became rather extensive. He also reports a foul smell. Has noted increase lower extremity edema. He states that he has been wearing his compression (20 to 30 mmHg) consistently. No chills, fever or otherwise feeling of unwell. Also has a new area on his left lower medial leg. He states that he has been applying same 1 products to these new areas. Progress of Wound: No acute concerns at this time. He states that his left lower extremity procedure is scheduled for 02 July. Objective Data Objective Data Vital Signs: Vital Signs Temp Pulse Resp BP O2 Del Method 96.9 F L 94 18 168/97 H Room Air 06/04/25 08:05 06/04/25 08:05 06/04/25 08:05 06/04/25 08:05 06/04/25 08:05 Oxygen Delivery Method Room Air Charges/Coding Procedures Integumentary 111xxx-113xx: [id number] Lakeisha subq tissue 20 sq cm/< Physical Exam Const alert, oriented x3 and no apparent distress General Appearance: cooperative and comfortable HEENT normocephalic Head and Scalp: normal to inspection, normocephalic and atraumatic Eyes EOMs intact bilaterally Neck full ROM and supple General: normal visual inspection Resp normal respiratory effort Effort and Inspection: able to speak in complete sentences Extremity normal to inspection General Extremity: edema Skin General Skin Exam: dry skin Wounds: wounds noted size Size: See clinical note, bed granulating well, margins well defined, no odor, open and surrounding erythema Neuro oriented x3, CN's II-XII intact bilaterally, moves all extremities and no focal motor deficits Psych mental status grossly normal, thought process normal, cooperative and affect normal Debridement Note Debridement Note Post-Debridement Measurements and Additional Note: Post-Debridement Measurements/Treatment - Nurse 1 - General Ulcer Assessment Start: 06/04/25 08:05 Freq: Status: Active Protocol: [email or web address] Activity Type Activity Date Activity User E-sign Co-sign Detail Recorded Client Recorded Date Recorded By Document 06/04/25 08:05 [email or web address] [id number] 06/04/25 08:14 FARRUKH 06/04/25 08:05 - Today's Visit Information Type of service Follow-up Visit (Physician/[employer]ATIONAL [employer] INSTRUCTOR ) Arrival Mode Ambulatory Patient Identification Verified (Name & Yes ) Vital Signs Temperature (97.8 F-99.1 F) 96.9 F L Temperature Source Temporal Pulse Rate (60-100) 94 Pulse Location Monitor Respiratory Rate (12-18) 18 Respiratory rate source Observation Oxygen Delivery Method Room Air Blood Pressure (90/60-120/80) 168/97 H Blood Pressure Mean (mm Hg) 120 Source Monitor Position Sitting Blood Pressure Location Left Arm History Since Last Visit- (Skip if this is Patient's initial visit) Have you changed medications since your No last visit? Any new allergies or adverse reactions No Had a fall/change in ADL's that may No increase risk of falls Signs or symptoms of abuse and/or No neglect since last visit Have you been in the hospital since your No last visit? Has dressing in place as prescribed Yes Has compression in place as prescribed Yes Has offloadiing in place as prescribed N/A Experienced any changes in pain level or No management Left Footwear Regular Shoe Right Footwear Regular Shoe Pain Scale: 0-10 Numeric Is Patient Pain Free? Yes WC - Nurse 1 - General Ulcer Measurement Start: 06/04/25 08:05 Freq: Status: Active Protocol: Activity Type Activity Date Activity User E-sign Co-sign Detail Recorded Client Recorded Date Recorded By Document 06/04/25 08:05 KW [id number] 06/04/25 08:14 KW 06/04/25 08:05 Wound Center Nurse 1 #18 Right Medial Ankle -Current Size (cm) - Length 1.5 -Current Size (cm) - Width 1 -Current Size (cm) - Depth 0.1 -Total Square Cm 1.5 -Date of Last Picture (Recall this 06/04/25 field) -Exudate Amt Medium -Exudate Type Serosanguineous -Wound Margin Thickened -Granulation Amt Large (67-100%) -Granulation Quality [place] -Texture (Ara-wound Skin Appearance) Assessed -Moisture (Ara-wound Skin Appearance) No Abnormality, Dry/Scaly -Color (Ara-wound Skin Appearance) Assessed -Temperature (Ara-wound Skin No Abnormality Appearance) (Pt Warm) -Tenderness on Palpation (Ara-wound No Skin Appearance) -Ulcer Cleansing Soap and Water -Foul Odor after Cleansing No -Anesthetic Used 5% Lidocaine Gel #10 Left Medial Ankle -Current Size (cm) - Length 3.2 -Current Size (cm) - Width 1 -Current Size (cm) - Depth 0.2 -Total Square Cm 3.2 -Date of Last Picture (Recall this 06/04/25 field) -Exudate Amt Medium -Exudate Type Serosanguineous -Wound Margin Thickened -Granulation Amt Large (67-100%) -Granulation Quality [place] -Texture (Ara-wound Skin Appearance) Assessed -Moisture (Ara-wound Skin Appearance) Assessed,Dry/ Scaly -Color (Ara-wound Skin Appearance) Assessed -Temperature (Ara-wound Skin No Abnormality Appearance) (Pt Warm) -Tenderness on Palpation (Ara-wound No Skin Appearance) -Ulcer Cleansing Soap and Water -Foul Odor after Cleansing No -Anesthetic Used 5% Lidocaine Gel - Nurse 2 - General Ulcer CM Notes Start: 06/04/25 08:05 Freq: Status: Active Protocol: Activity Type Activity Date Activity User E-sign Co-sign Detail Recorded Client Recorded Date Recorded By Document 06/04/25 08:28 [id number] 06/04/25 08:35 GM 06/04/25 08:28 Wound Center Nurse 2 #18 Right Medial Ankle -Time 08:28 -Correct Patient Yes -Correct Side, Site, Position Yes -Correct Procedure Yes -Procedure Performed Yes -Type of Procedure Debridement -Clinical Debridement Subcutaneous -Tissue Removed Subcutaneous -Post Debridement (cm) - Length 1.4 -Post Debridement (cm) - Width 1.1 -Post Debridement (cm) - Depth 0.1 -Total Square (Post) (cm) 1.54 -Area of Debridement (cm) - Length 1.4 -Area of Debridement (cm) - Width 1.1 -Total Square (Area) (cm) 1.54 -Tunneling No -Undermining/Tunneling No -Circular Undermining No -Wound/Ulcer Outcome Not Healed -Ulcer Cleansing Rinsed/ Irrigated with Saline -Foul Odor after Cleansing No -Bioengineered Tissue No -Bleeding Controlled with Pressure -Treatment Response Procedure Tolerated Well -Offloading No -Debridement - Subq, 1st 20sq cm No #10 Left Medial Ankle -Time 08:28 -Correct Patient Yes -Correct Side, Site, Position Yes -Correct Procedure Yes -Procedure Performed Yes -Type of Procedure Debridement -Clinical Debridement Subcutaneous -Tissue Removed Subcutaneous -Post Debridement (cm) - Length 3.4 -Post Debridement (cm) - Width 1.0 -Post Debridement (cm) - Depth 0.3 -Total Square (Post) (cm) 3.40 -Area of Debridement (cm) - Length 3.4 -Area of Debridement (cm) - Width 1.0 -Total Square (Area) (cm) 3.40 -Tunneling No -Undermining/Tunneling No -Circular Undermining No -Wound/Ulcer Outcome Not Healed -Ulcer Cleansing Rinsed/ Irrigated with Saline -Foul Odor after Cleansing No -Bioengineered Tissue No -Bleeding Controlled with Pressure -Treatment Response Procedure Tolerated Well -Offloading No -Debridement - Subq, 1st 20sq cm Yes Pain Scale: 0-10 Numeric Is Patient Pain Free? Yes - Nurse 3 - General Ulcer D/C NN Start: 06/04/25 08:05 Freq: Status: Active Protocol: Activity Type Activity Date Activity User E-sign Co-sign Detail Recorded Client Recorded Date Recorded By Document 06/04/25 08:44 RB [id number] 06/04/25 08:45 RB 06/04/25 08:44 Wound Care Center Nurse 3 #18 Right Medial Ankle -Other Dressing ABD -Primary Dressing Covered/Secured with Secured with Tape #10 Left Medial Ankle -Other Dressing ABD -Primary Dressing Covered/Secured with Secured with Tape BLE -Stockings Yes: pt own stockings Treatment Response Procedure Tolerated Well Pain Scale: 0-10 Numeric Is Patient Pain Free? Yes WC - Visit Discharge Discharge Condition Stable Ambulatory Status Ambulatory Transportation Private Auto Medication Reconcilliation completed & No provided to patient/care provider Clinical Summary of Care Provided Yes Assessment/Plan Assessment/Plan (1) Ulcer of left lower extremity with fat layer exposed: CODE(S): L97.922 - Non-pressure chronic ulcer of unspecified part of left lower leg with fat layer exposed (2) PVD (peripheral vascular disease): CODE(S): I73.9 - Peripheral vascular disease, unspecified (3) Chronic venous insufficiency: CODE(S): I87.2 - Venous insufficiency (chronic) (peripheral) (4) Delayed wound healing: CODE(S): T14.8XXD - Other injury of unspecified body region, subsequent encounter (5) Ulcer of right lower extremity with fat layer exposed: CODE(S): L97.912 - Non-pressure chronic ulcer of unspecified part of right lower leg with fat layer exposed PLAN: Plan Debridement done as documented above, procedure was well-tolerated. No acute concerns at this time. Overall, stable ulcers. Recently had a visit with his primary care physician, he states he had an A1c done but does not remember. No medication changes. Was started on an antibiotic due to rash on his upper extremity. Prior failed attempt at foam sclerotherapy of his left lower extremity. Now rescheduled for the 02 of July. Continue 30 minutes Dakin's soak daily. Apply Bactroban, Aquacel extra to ulcers, cover with KerraMax care. Consistent use of compression, leg elevation and exercise as tolerated strongly recommended, he voiced understanding. Compliance with dressing changes also strongly recommended. Increased protein intake, protein supplements, zinc and vitamin D. Optimal diabetes control discussed, he was advised to update with his A1c, he voiced understanding. Also advised that he moisturize his skin consistently. His questions were answered, and he was advised to call with any further questions or concerns. Follow-up in 2 weeks per patient preference. This note was generated with [employer] dictation software. It may contain incorrect words, spelling, and punctuation that were not noted in checking the note before signing.
--- NOTE | 2025-06-04 13:15 | WC ---
PHOTO-LEFT MED ANKLE 06/04/25
--- NOTE | 2025-06-04 13:16 | WC ---
PHOTO-RIGHT MID ANKLE 06/04/25
[2025-06-18 08:14] VITALS: BP 160/98; PULSE 89; RESP 18; TEMP 36.5
--- NOTE | 2025-06-18 08:37 | PN.PCM_ITS ---
History of Present Illness Date of Service: 06/18/25 Chief Complaint: Bilateral lower extremity ulcers History of Wound: This is a 54-year-old male presents to wound healing center with a long-standing history of chronic venous insufficiency, chronic venous hypertension, lower extremity edema, lower extremity pain, and chronic left lower extremity ulcer. The patient has previously undergone endovenous laser ablation of the left and right great saphenous vein, the small saphenous vein, the left accessory saphenous vein, and an incompetent left calf perforator typist vein located 15 cm proximal to the left medial malleolus. He is currently wearing graduated compression stockings which are documented to be 20-30 mmHg compression and these are thigh high. He reports great compliance with use. He is also had previous arterial work-up with no intervention recommended by letter, his vascular surgeon. He denies taking nutritional supplementation. He saw dermatology and had a biopsy of the ulcer site. He also was previously treated by infectious disease for various contaminations and infections. He is not antibiotics at this time nor does he have any redness or odor coming from the wound. He denies fever, chill, nausea, vomiting, loss of appetite. 05/18/22: Mr. Jeronimo presents with a new right lower extremity ulceration. He states that this has been present for months and he has been trying to manage it at home without any significant improvement. Opened up months ago, no known pr ecipitating factor. Has been applying wound dressings without any significant improvement. He reports increased drainage. Denies significant pain. No chills, fever or feeling of unwell. 10/16/24: Mr. Jeronimo presents with a new right lower extremity ulceration. He states that it started out as a very small area that was slipping and then in the last week, became rather extensive. He also reports a foul smell. Has noted increase lower extremity edema. He states that he has been wearing his compression (20 to 30 mmHg) consistently. No chills, fever or otherwise feeling of unwell. Also has a new area on his left lower medial leg. He states that he has been applying same 1 products to these new areas. Progress of Wound: No acute concerns at this time. Recently started on metformin by his primary care physician due to elevated A1c. He is not sure of what the number was. No new concerns regarding his ulcers. Objective Data Objective Data Vital Signs: Vital Signs Temp Pulse Resp BP O2 Del Method 97.7 F L 89 18 160/98 H Room Air 06/18/25 08:14 06/18/25 08:14 06/18/25 08:14 06/18/25 08:14 06/04/25 08:05 Oxygen Delivery Method Room Air Charges/Coding Procedures Integumentary 111xxx-113xx: [id number] Lakeisha subq tissue 20 sq cm/< Physical Exam Const alert, oriented x3 and no apparent distress General Appearance: cooperative and comfortable HEENT normocephalic Head and Scalp: normal to inspection, normocephalic and atraumatic Eyes EOMs intact bilaterally Neck full ROM and supple General: normal visual inspection Resp normal respiratory effort Effort and Inspection: able to speak in complete sentences Extremity normal to inspection General Extremity: edema Skin General Skin Exam: dry skin Wounds: wounds noted size Size: See clinical note, bed granulating well, margins well defined, no odor, open and surrounding erythema Neuro oriented x3, CN's II-XII intact bilaterally, moves all extremities and no focal motor deficits Psych mental status grossly normal, thought process normal, cooperative and affect normal Debridement Note Debridement Note Wound debrided: Right lower extremity (medial) Type of Debridement: Excisional debridement Anesthesia Used: 5% Lidocaine Gel Depth: in the subcutaneous layer Percentage of wound debrided: 100 Instrument Used: 5mm curette Tissue Removed: Slough and devitalized tissue Amount of bleeding with debridement: Mild Bleeding Controlled with: Pressure Patient tolerated procedure: Patient tolerated procedure well Post-Debridement Measurements and Additional Note: Post-Debridement Measurements/Treatment - Nurse 1 - General Ulcer Assessment Start: 06/04/25 08:05 Freq: Status: Active Protocol: SHANTA Activity Type Activity Date Activity User E-sign Co-sign Detail Recorded Client Recorded Date Recorded By Document 06/04/25 08:05 KW [id number] 06/04/25 08:14 KW Document 06/18/25 08:14 RB [id number] 06/18/25 08:18 RB 06/04/25 06/18/25 08:05 08:14 - Today's Visit Information Type of service Follow-up Visit Follow-up Visit (Physician/SEISMOGRAPHER (Physician/SEISMOGRAPHER ) ) Arrival Mode Ambulatory Ambulatory Transfer Assistance None Patient Identification Verified (Name & Yes Yes ) Patient Requires Transmission-Based No Precautions Vital Signs Temperature (97.8 F-99.1 F) 96.9 F L 97.7 F L Temperature Source Temporal Temporal Pulse Rate (60-100) 94 89 Pulse Location Monitor Monitor Respiratory Rate (12-18) 18 18 Respiratory rate source Observation Observation Oxygen Delivery Method Room Air Blood Pressure (90/60-120/80) 168/97 H 160/98 H Blood Pressure Mean (mm Hg) 120 118 Source Monitor Monitor Position Sitting Semi-Fowlers Blood Pressure Location Left Arm Right Arm History Since Last Visit- (Skip if this is Patient's initial visit) Have you changed medications since your No No last visit? Any new allergies or adverse reactions No No Had a fall/change in ADL's that may No No increase risk of falls Signs or symptoms of abuse and/or No No neglect since last visit Have you been in the hospital since your No No last visit? Has dressing in place as prescribed Yes Yes Has compression in place as prescribed Yes Yes Has offloadiing in place as prescribed N/A N/A Experienced any changes in pain level or No No management Left Footwear Regular Shoe Regular Shoe Right Footwear Regular Shoe Regular Shoe Pain Scale: 0-10 Numeric Is Patient Pain Free? Yes Yes WC - Nurse 1 - General Ulcer Measurement Start: 06/04/25 08:05 Freq: Status: Active Protocol: Activity Type Activity Date Activity User E-sign Co-sign Detail Recorded Client Recorded Date Recorded By Document 06/04/25 08:05 KW [id number] 06/04/25 08:14 KW Document 06/18/25 08:14 RB [id number] 06/18/25 08:18 RB 06/04/25 06/18/25 08:05 08:14 Wound Center Nurse 1 #18 Right Medial Ankle -Combined with other wound No -Current Size (cm) - Length 1.5 1.3 -Current Size (cm) - Width 1 1 -Current Size (cm) - Depth 0.1 0.2 -Total Square Cm 1.5 1.3 -Date of Last Picture (Recall this 06/04/25 field) -Photo Taken Yes -Tunneling No -Undermining/Tunneling No -Circular Undermining No -Exudate Amt Medium Medium -Exudate Type Serosanguineous Serosanguineous -Wound Margin Thickened Distinct, Outline Attached -Granulation Amt Large (67-100%) Medium (34-66%) -Granulation Quality [place] -Slough/Fibrin Yes -Necrosis Amt Medium (34-66%) -Necrotic Tissue Type Adherent Slough -Structure Exposed N/A -Texture (Ara-wound Skin Appearance) Assessed Assessed -Moisture (Ara-wound Skin Appearance) No Abnormality, Assessed Dry/Scaly -Color (Ara-wound Skin Appearance) Assessed Assessed -Temperature (Ara-wound Skin No Abnormality No Abnormality Appearance) (Pt Warm) (Pt Warm) -Tenderness on Palpation (Ara-wound No No Skin Appearance) -Ulcer Cleansing Soap and Water Wound Cleanser -Foul Odor after Cleansing No No -Anesthetic Used 5% Lidocaine 5% Lidocaine Gel Gel #10 Left Medial Ankle -Combined with other wound No -Current Size (cm) - Length 3.2 3 -Current Size (cm) - Width 1 0.9 -Current Size (cm) - Depth 0.2 0.3 -Total Square Cm 3.2 2.7 -Date of Last Picture (Recall this 06/04/25 field) -Photo Taken Yes -Tunneling No -Undermining/Tunneling No -Circular Undermining No -Exudate Amt Medium Medium -Exudate Type Serosanguineous Serosanguineous -Wound Margin Thickened Distinct, Outline Attached -Granulation Amt Large (67-100%) Medium (34-66%) -Granulation Quality [place] -Slough/Fibrin Yes -Necrosis Amt Medium (34-66%) -Necrotic Tissue Type Adherent Slough -Structure Exposed N/A -Texture (Ara-wound Skin Appearance) Assessed Assessed -Moisture (Ara-wound Skin Appearance) Assessed,Dry/ Assessed,Dry/ Scaly Scaly -Color (Ara-wound Skin Appearance) Assessed Assessed -Temperature (Ara-wound Skin No Abnormality No Abnormality Appearance) (Pt Warm) (Pt Warm) -Tenderness on Palpation (Ara-wound No No Skin Appearance) -Ulcer Cleansing Soap and Water Rinsed/ Irrigated with Saline -Foul Odor after Cleansing No No -Anesthetic Used 5% Lidocaine 5% Lidocaine Gel Gel Lower Limb Edema Present Yes Right Calf (cm) 36 Right Ankle (cm) 22.7 Left Calf (cm) 36.6 Left Ankle (cm) 23.2 WC - Nurse 2 - General Ulcer CM Notes Start: 06/04/25 08:05 Freq: Status: Active Protocol: Activity Type Activity Date Activity User E-sign Co-sign Detail Recorded Client Recorded Date Recorded By Document 06/04/25 08:28 [id number] 06/04/25 08:35 Document 06/18/25 08:27 [id number] 06/18/25 08:34 06/04/25 06/18/25 08:28 08:27 Wound Center Nurse 2 #18 Right Medial Ankle -Time 08: 08:28 -Correct Patient Yes Yes -Correct Side, Site, Position Yes Yes -Correct Procedure Yes Yes -Procedure Performed Yes Yes -Type of Procedure Debridement Debridement -Clinical Debridement Subcutaneous Subcutaneous -Tissue Removed Subcutaneous Subcutaneous -Post Debridement (cm) - Length 1.4 1.5 -Post Debridement (cm) - Width 1.1 1.2 -Post Debridement (cm) - Depth 0.1 0.1 -Total Square (Post) (cm) 1.54 1.80 -Area of Debridement (cm) - Length 1.4 1.5 -Area of Debridement (cm) - Width 1.1 1.2 -Total Square (Area) (cm) 1.54 1.80 -Tunneling No No -Undermining/Tunneling No No -Circular Undermining No No -Wound/Ulcer Outcome Not Healed Not Healed -Ulcer Cleansing Rinsed/ Rinsed/ Irrigated with Irrigated with Saline Saline -Foul Odor after Cleansing No No -Bioengineered Tissue No No -Bleeding Controlled with Pressure Pressure -Treatment Response Procedure Procedure Tolerated Well Tolerated Well -Offloading No No -Debridement - Subq, 1st 20sq cm No No #10 Left Medial Ankle -Time 08: 08:28 -Correct Patient Yes Yes -Correct Side, Site, Position Yes Yes -Correct Procedure Yes Yes -Procedure Performed Yes Yes -Type of Procedure Debridement Debridement -Clinical Debridement Subcutaneous Subcutaneous -Tissue Removed Subcutaneous Subcutaneous -Post Debridement (cm) - Length 3.4 3.1 -Post Debridement (cm) - Width 1.0 1.0 -Post Debridement (cm) - Depth 0.3 0.3 -Total Square (Post) (cm) 3.40 3.10 -Area of Debridement (cm) - Length 3.4 3.1 -Area of Debridement (cm) - Width 1.0 1.0 -Total Square (Area) (cm) 3.40 3.10 -Tunneling No No -Undermining/Tunneling No No -Circular Undermining No No -Wound/Ulcer Outcome Not Healed Not Healed -Ulcer Cleansing Rinsed/ Rinsed/ Irrigated with Irrigated with Saline Saline -Foul Odor after Cleansing No No -Bioengineered Tissue No No -Bleeding Controlled with Pressure Pressure -Treatment Response Procedure Procedure Tolerated Well Tolerated Well -Offloading No No -Debridement - Subq, 1st 20sq cm Yes Yes Pain Scale: 0-10 Numeric Is Patient Pain Free? Yes Yes - Nurse 3 - General Ulcer D/C NN Start: 06/04/25 08:05 Freq: Status: Active Protocol: Activity Type Activity Date Activity User E-sign Co-sign Detail Recorded Client Recorded Date Recorded By Document 06/04/25 08:44 RB [id number] 06/04/25 08:45 RB 06/04/25 08:44 Wound Care Center Nurse 3 #18 Right Medial Ankle -Other Dressing ABD -Primary Dressing Covered/Secured with Secured with Tape #10 Left Medial Ankle -Other Dressing ABD -Primary Dressing Covered/Secured with Secured with Tape BLE -Stockings Yes: pt own stockings Treatment Response Procedure Tolerated Well Pain Scale: 0-10 Numeric Is Patient Pain Free? Yes - Visit Discharge Discharge Condition Stable Ambulatory Status Ambulatory Transportation Private Auto Medication Reconcilliation completed & No provided to patient/care provider Clinical Summary of Care Provided Yes Additional Wound Wound debrided: Left lower extremity (medial) Type of Debridement: Excisional debridement Anesthesia Used: 5% Lidocaine Gel Depth: Down to and including healthy tissue and in the subcutaneous layer Percentage of wound debrided: 100 Instrument Used: 5mm curette Tissue Removed: Slough and devitalized tissue Severity: Fat Layer Exposed Amount of bleeding with debridement: Mild Bleeding Controlled with: Pressure Patient tolerated procedure: Patient tolerated procedure well Assessment/Plan Assessment/Plan (1) Ulcer of left lower extremity with fat layer exposed: CODE(S): L97.922 - Non-pressure chronic ulcer of unspecified part of left lower leg with fat layer exposed (2) PVD (peripheral vascular disease): CODE(S): I73.9 - Peripheral vascular disease, unspecified (3) Chronic venous insufficiency: CODE(S): I87.2 - Venous insufficiency (chronic) (peripheral) (4) Delayed wound healing: CODE(S): T14.8XXD - Other injury of unspecified body region, subsequent encounter (5) Ulcer of right lower extremity with fat layer exposed: CODE(S): L97.912 - Non-pressure chronic ulcer of unspecified part of right lower leg with fat layer exposed PLAN: Plan Debridement done as documented above, procedure was well-tolerated. No acute concerns at this time. Overall, stable ulcers. Prior failed attempt at foam sclerotherapy of his left lower extremity. Now rescheduled for the 02 of July. Continue 30 minutes Dakin's soak daily. Apply Bactroban, Aquacel extra to ulcers, cover with KerraMax care. Consistent use of compression, leg elevation and exercise as tolerated strongly recommended, he voiced understanding. Compliance with dressing changes also strongly recommended. Increased protein intake, protein supplements, zinc and vitamin D. Now on metformin, recent elevation in his A1c but he is not aware of what the number is. Optimal diabetes control recommended. Also advised that he moisturize his skin consistently. His questions were answered, and he was advised to call with any further questions or concerns. Follow-up in 2 weeks per patient preference. This note was generated with [employer] dictation software. It may contain incorrect words, spelling, and punctuation that were not noted in checking the note before signing.
--- NOTE | 2025-06-19 08:24 | WC ---
PHOTO-RIGHT MEDIAL FOOT 06/18/25
--- NOTE | 2025-06-19 08:29 | WC ---
PHOTO-LEFT MEDIAL FOOT 06/18/25
--- NOTE | 2025-06-22 08:27 | WC ---
PHOTO-RIGHT MEDIAL FOOT 06/18/25
--- NOTE | 2025-06-22 08:29 | WC ---
PHOTO-LEFT MEDIAL FOOT 06/18/25
== END 2025-06-28 23:59 | disposition home or self-care (01) ==
LOC: WC 08:00
PROVIDERS: PCP Family Medicine; Referring Provider Family Medicine; Visit Provider Internal Medicine
DX: I73.9 Peripheral vascular disease, unspecified (principal); L97.312 Non-pressure chronic ulcer of right ankle with fat layer exposed; L97.322 Non-pressure chronic ulcer of left ankle with fat layer exposed; R60.0 Localized edema; I87.2 Venous insufficiency (chronic) (peripheral)
CPT/HCPCS: 11042

== ENCOUNTER 2025-07-02 08:27 | Day surgery (SDC) | payer OTHER, SELFPAY ==
[2025-07-01 07:42] VITALS: BMI 38.9
--- NOTE | 2025-07-02 09:49 | PCM.HP.STD ---
HPI - General HPI Narrative RUBEN ALLEN, is a 60 M who presents with recurrent left lower extremity venous ulcerations; medial ankle and now on dorsum of foot. These have been refractory to compression. He had attempted foam ablation though access was not successfully obtained. He returns for 2nd attempt [facility] Medical History MRSA infection Former smoker History of edema Ulcer of right lower extremity with fat layer exposed Stasis ulcer Home Medications ?Medication ?Instructions ?Recorded ?Last Taken ?Type aspirin 81 mg chewable tablet 81 mg PO DAILY@0800 HEALTH 07/04/18 07/01/25 History atorvastatin 20 mg tablet 20 mg PO QHS CHOLESTEROL 07/18/21 07/17/21 History hydrochlorothiazide 25 mg tablet 25 mg PO DAILY BP 07/18/21 07/18/21 History metformin 500 mg tablet 500 mg PO BID 07/02/25 Unknown History Allergy/AdvReac Type Severity Reaction Status Date / Time ciprofloxacin (From Cipro) Allergy Rash Verified 04/14/25 13:59 Family History Other CAD (coronary artery disease) CVA (cerebral vascular accident) Diabetes Heart disease Hypertension Social History Smoking Status: Former smoker Tobacco: How many years used: 21 ROS Constitutional Constitutional: Denies chills, fever(s), frequent falls, lethargy or weakness Eyes Eyes: Denies blind spots, change in vision or loss of vision ENT HEENT: Denies bleeding gums, hoarseness or sore throat Cardiovascular Cardiovascular: Denies abdominal pain, bluish discoloration of hand/feet, chest pain with activity, claudication, cold extremities, cyanosis, dyspnea on exertion, erythema on extremities, irregular heart rhythm, leg edema, leg ulcers, numbness in extremities or weakness in extremities Respiratory/Chest Respiratory/Chest: Denies cough, excessive phlegm production, shortness of breath at rest, shortness of breath with exertion or wheezing Gastrointestinal Gastrointestinal: Denies anorexia, change in stool character, constipation, diarrhea, melena or rectal bleeding Genitourinary Genitourinary: Denies dysuria or hematuria Musculoskeletal Musculoskeletal: Denies abnormal gait Integumentary Integumentary: Reports other Details: ; Denies erythema, non-healing lesions or wounds Neurologic Neurologic: Denies abnormal speech, focal weakness, headache(s), loss of vision, numbness, paresthesias or sensory deficit Hematologic/Lymphatic Hematologic/Lymphatic: Denies easy bleeding, easy bruising or lymphadenopathy Vital Signs Vital Signs Vital Signs: Weight Weight: 264 lb Body Mass Index (BMI) 38.9 Physical Exam Const alert, oriented x3, no apparent distress and healthy appearing General Appearance: cooperative; Negative for combative or lethargic Orientation / Consciousness: awake Exam Limitations: no limitations HEENT Head and Scalp: normocephalic and atraumatic Eyes EOMs intact bilaterally General Eye: normal appearance of both eyes Neck full ROM General: trachea midline Resp normal respiratory effort and no use of accessory muscles Effort and Inspection: Negative for labored, stridor or audible wheezes Cardio regular rate and regular rhythm Back/Spine Cervical Spine: cervical ROM normal Extremity full ROM, normal capillary refill and no clubbing, cyanosis or edema Skin no rashes or lesions noted Neuro oriented x3, CN's II-XII intact bilaterally, no focal motor deficits and no sensory deficits noted Psych thought process normal, cooperative, affect normal, speech normal and activity/motor behavior normal Assessment & Plan Assessment/Plan (1) Venous stasis ulcer of ankle: QUALIFIERS: Varicose vein presence: with varicose veins Laterality: unspecified laterality Non-pressure ulcer stage: with fat layer exposed Qualified Code(s): I83.003 - Varicose veins of unspecified lower extremity with ulcer of ankle; L97.302 - Non-pressure chronic ulcer of unspecified ankle with fat layer exposed PLAN: -foam ablation GSV and surrounding varicosities (2) Non-pressure chronic ulcer of left ankle with fat layer exposed:
--- NOTE | 2025-07-02 14:01 | OP.PCM_ITS ---
Operative Report (Standard) Operative Information Date of Procedure: 07/02/25 Pre-Operative Diagnosis: Venous insufficiency with ulceration of the left medial ankle and dorsum of the foot Post-Operative Diagnosis: Same Surgery/Procedure Performed: Foam ablation of the distal left great saphenous vein and associated varicosities on the foot director operations broadcast: No Type of Anesthesia: Local Procedure Start Time: 10:05 Procedure Stop Time: 10:20 Select all DRAINS/GRAFTS/IMPLANTS that apply: None Estimated Blood Loss: 1 Specimen collected: No Description of surgery: HPI: Patient is a 60-year-old male with longstanding venous insufficiency and ulcerations of bilateral lower extremities recurrent despite multiple prior procedures and maximal compression therapy. Currently has a nonhealing wound of the left medial malleolus and dorsum of the foot. Prior imaging revealed incompetent inferior aspect of the great saphenous vein with deep vein perforators at the ankle as well as incompetent varicosities on the dorsum and medial aspect of the foot. He had previously undergone attempted foam ablation that was not successful due to difficulty obtaining access so he presents now for second effort. Description of procedure: Upon obtaining informed consent and verification correct patient procedure site the patient was taken to the Outside Sales Executive wrist position prepped and draped in usual sterile fashion. Timeouts performed and under ultrasound guidance varicosity on the dorsum of the foot was accessed with a 25-gauge butterfly needle. The visualized stained glass artist at the medial aspect of the ankle just above the malleolus was gently compressed and foam infused under ultrasound visualization. The foam was noted to fill into the varicosity of the dorsum of the foot and into the inferior aspect of the great saphenous vein without transit into the deep system. Manual pressure was held for 3 minutes at the stained glass artist and assessment of the medial foot varicosities performed with ultrasound. There were secondary branches that appeared amenable to treatment in an effort to neutralize any varicosities in the wound bed so secondary access was obtained and varicosities inferior to the wound. Additional foam was injected under ultrasound guidance with compression of the stained glass artist to prevent deep vein transit of the foam. Upon completion the deep system was assessed and no evidence of flow in transit in the deep system was observed. Compression dressing was then applied the patient was taken to the recovery area plan discharged home. Surgical Findings: See above Complications Complications: No
== END 2025-07-03 10:22 | disposition home or self-care (01) ==
PROVIDERS: PCP Family Medicine; Referring Provider Surgery Trauma Surgery; Visit Provider Surgery Trauma Surgery
DX: I83.023 Varicose veins of left lower extremity with ulcer of ankle (principal); I83.013 Varicose veins of right lower extremity with ulcer of ankle; L97.312 Non-pressure chronic ulcer of right ankle with fat layer exposed; L97.322 Non-pressure chronic ulcer of left ankle with fat layer exposed; I87.2 Venous insufficiency (chronic) (peripheral); Z87.891 Personal history of nicotine dependence; Z98.890 Other specified postprocedural states; Z79.82 Long term (current) use of aspirin; Z79.84 Long term (current) use of oral hypoglycemic drugs
CPT/HCPCS: 36465

== ENCOUNTER → 2025-07-07 | Outpatient (CLI) | payer OTHER, SELFPAY ==
--- NOTE | 2025-07-07 09:54 | VDLE_ITS ---
Reason For Study Reason For Study: S/P LLE Chemical Ablation RIGHT LEFT CFV is compressible, spontaneous, phasic, competent Lt GSV SFJ to prox thigh appears compressible and and demonstrates normal augmentation. very tortuous. Unable to visualize GSV mid thigh to Procedure mid calf. This is a venous duplex using B-mode, color flow and Superficial veins at ankle and distal calf appear spectral Doppler. PARTIALLY COMPRESSIBLE with intraluminal echoes. Exam performed in department. Unable to visualize LLE Perforating vessels. The exam was diagnostic. CFV is compressible, spontaneous, phasic, competent, and demonstrates normal augmentation. FV is compressible, spontaneous, phasic, competent and demonstrates normal augmentation. POP V is compressible, spontaneous, phasic, competent and demonstrates normal augmentation. T/P Trunk is compressible. PTV is compressible. LT PerV is compressible. VL/Venous Duplex US, Unilateral Interpretation Summary Deep veins of the left lower extremity are patent and compressible segmentally. There is no evidence of left lower extremity deep vein thrombosis. Superficial vein thrombosis noted in varicosities at left ankle concistent with recent ablation Ordering Physician: Odalys Dior Referring Physician: Arvind Frausto Performed By: Chilango Limon RVT
== END | disposition home or self-care (01) ==
LOC: CVS 09:53
PROVIDERS: PCP Family Medicine; Referring Provider Physician Assistant; Visit Provider Physician Assistant
DX: I83.023 Varicose veins of left lower extremity with ulcer of ankle (principal)
CPT/HCPCS: 93971

== ENCOUNTER 2025-07-23 08:00 | Outpatient (RCR) | payer OTHER, SELFPAY ==
[2025-07-09 08:23] VITALS: BP 146/81; PULSE 99; RESP 18; TEMP 35.9
--- NOTE | 2025-07-09 09:07 | PCM.WC.PN ---
History of Present Illness Date of Service: 07/09/25 Chief Complaint: Bilateral lower extremity ulcers History of Wound: This is a 54-year-old male presents to wound healing center with a long-standing history of chronic venous insufficiency, chronic venous hypertension, lower extremity edema, lower extremity pain, and chronic left lower extremity ulcer. The patient has previously undergone endovenous laser ablation of the left and right great saphenous vein, the small saphenous vein, the left accessory saphenous vein, and an incompetent left calf electronic video games servicer vein located 15 cm proximal to the left medial malleolus. He is currently wearing graduated compression stockings which are documented to be 20-30 mmHg compression and these are thigh high. He reports great compliance with use. He is also had previous arterial work-up with no intervention recommended by letter, his vascular surgeon. He denies taking nutritional supplementation. He saw dermatology and had a biopsy of the ulcer site. He also was previously treated by infectious disease for various contaminations and infections. He is not antibiotics at this time nor does he have any redness or odor coming from the wound. He denies fever, chill, nausea, vomiting, loss of appetite. 05/18/22: Mr. Jeronimo presents with a new right lower extremity ulceration. He states that this has been present for months and he has been trying to manage it at home without any significant improvement. Opened up months ago, no known precipitating factor. Has been applying wound dressings without any significant improvement. He reports increased drainage. Denies significant pain. No chills, fever or feeling of unwell. 10/16/24: Mr. Jeronimo presents with a new right lower extremity ulceration. He states that it started out as a very small area that was slipping and then in the last week, became rather extensive. He also reports a foul smell. Has noted increase lower extremity edema. He states that he has been wearing his compression (20 to 30 mmHg) consistently. No chills, fever or otherwise feeling of unwell. Also has a new area on his left lower medial leg. He states that he has been applying same 1 products to these new areas. Progress of Wound: Presents with a new left foot ulcer. No known precipitating factor. He states that he noted a small area which he thought may have been from rubbing on his shoes which worsened the next day. Has had ulcers in similar areas before. Status post recent left lower extremity procedure, procedure was uneventful however he noted worsening of his left lower extremity ulceration following this. Otherwise, no concerns reported. Objective Data Objective Data Vital Signs: Vital Signs Temp Pulse Resp BP O2 Del Method 96.7 F L 99 18 146/81 H Room Air 07/09/25 08:23 07/09/25 08:23 07/09/25 08:23 07/09/25 08:23 07/09/25 08:23 Oxygen Delivery Method Room Air Charges/Coding Procedures Integumentary 111xxx-113xx: [id number] Lakeisha subq tissue 20 sq cm/< Physical Exam Const alert, oriented x3 and no apparent distress General Appearance: cooperative and comfortable HEENT normocephalic Head and Scalp: normal to inspection, normocephalic and atraumatic Eyes EOMs intact bilaterally Neck full ROM and supple General: normal visual inspection Resp normal respiratory effort Effort and Inspection: able to speak in complete sentences Extremity normal to inspection General Extremity: edema Skin General Skin Exam: dry skin Wounds: wounds noted size Size: See clinical note, bed granulating well, margins well defined, no odor, open and surrounding erythema Neuro oriented x3, CN's II-XII intact bilaterally, moves all extremities and no focal motor deficits Psych mental status grossly normal, thought process normal, cooperative and affect normal Debridement Note Debridement Note Wound debrided: Right lower extremity/medial ankle Type of Debridement: Excisional debridement Anesthesia Used: 5% Lidocaine Gel Depth: Down to and including healthy tissue and in the subcutaneous layer Percentage of wound debrided: 100 Instrument Used: 5mm curette Tissue Removed: Slough and devitalized tissue Severity: Fat Layer Exposed Amount of bleeding with debridement: Mild Bleeding Controlled with: Pressure Patient tolerated procedure: Patient tolerated procedure well Post-Debridement Measurements and Additional Note: Post-Debridement Measurements/Treatment - Nurse 1 - General Ulcer Assessment Start: 07/09/25 08:23 Freq: Status: Active Protocol: SHANTA Activity Type Activity Date Activity User E-sign Co-sign Detail Recorded Client Recorded Date Recorded By Document 07/09/25 08:23 [email or web address] [id number] 07/09/25 08:34 KW 07/09/25 08:23 KIMBERLY - Today's Visit Information Type of service Follow-up Visit (Physician/[employer] ) Arrival Mode Ambulatory Patient Identification Verified (Name & Yes ) Vital Signs Temperature (97.8 F-99.1 F) 96.7 F L Temperature Source Temporal Pulse Rate (60-100) 99 Pulse Location Monitor Respiratory Rate (12-18) 18 Respiratory rate source Observation Oxygen Delivery Method Room Air Blood Pressure (90/60-120/80) 146/81 H Blood Pressure Mean (mm Hg) 102 Source Monitor Position Semi-Fowlers Blood Pressure Location Left Arm History Since Last Visit- (Skip if this is Patient's initial visit) Have you changed medications since your No last visit? Any new allergies or adverse reactions No Had a fall/change in ADL's that may No increase risk of falls Signs or symptoms of abuse and/or No neglect since last visit Have you been in the hospital since your No last visit? Has dressing in place as prescribed Yes Has compression in place as prescribed Yes Has offloadiing in place as prescribed N/A Experienced any changes in pain level or No management Left Footwear Regular Shoe Right Footwear Regular Shoe Pain Scale: 0-10 Numeric Is Patient Pain Free? Yes WC - Nurse 1 - General Ulcer Measurement Start: 07/09/25 08:23 Freq: Status: Active Protocol: Activity Type Activity Date Activity User E-sign Co-sign Detail Recorded Client Recorded Date Recorded By Document 07/09/25 08:23 [id number] 07/09/25 08:34 KW 07/09/25 08:23 Wound Center Nurse 1 lt anterior ft -Current Size (cm) - Length 1.1 -Current Size (cm) - Width 1 -Current Size (cm) - Depth 0.1 -Total Square Cm 1.1 -Date of Last Picture (Recall this 07/09/25 field) -Exudate Amt Small -Exudate Type Serosanguineous -Wound Margin Distinct, Outline Attached -Granulation Amt Small (1-33%) -Granulation Quality [place] -Necrosis Amt Large (67-100%) -Necrotic Tissue Type Adherent Slough -Texture (Ara-wound Skin Appearance) Assessed -Moisture (Ara-wound Skin Appearance) Assessed,Dry/ Scaly -Color (Ara-wound Skin Appearance) Assessed -Temperature (Ara-wound Skin No Abnormality Appearance) (Pt Warm) -Tenderness on Palpation (Ara-wound No Skin Appearance) -Ulcer Cleansing Soap and Water -Foul Odor after Cleansing No -Anesthetic Used 5% Lidocaine Gel #18 Right Medial Ankle -Current Size (cm) - Length 1.3 -Current Size (cm) - Width 1.3 -Current Size (cm) - Depth 0.1 -Total Square Cm 1.69 -Date of Last Picture (Recall this 07/09/25 field) -Exudate Amt Medium -Exudate Type Serosanguineous -Wound Margin Distinct, Outline Attached -Granulation Amt Large (67-100%) -Granulation Quality [place],Red -Necrosis Amt Small (1-33%) -Necrotic Tissue Type Adherent Slough -Texture (Ara-wound Skin Appearance) Assessed,Callus -Moisture (Ara-wound Skin Appearance) Assessed,Dry/ Scaly -Color (Ara-wound Skin Appearance) Assessed, Erythema -Temperature (Ara-wound Skin No Abnormality Appearance) (Pt Warm) -Tenderness on Palpation (Ara-wound No Skin Appearance) -Ulcer Cleansing Soap and Water -Foul Odor after Cleansing No -Anesthetic Used 5% Lidocaine Gel #10 Left Medial Ankle -Current Size (cm) - Length 3 -Current Size (cm) - Width 1 -Current Size (cm) - Depth 0.2 -Total Square Cm 3 -Date of Last Picture (Recall this 07/09/25 field) -Exudate Amt Medium -Exudate Type Serosanguineous -Wound Margin Distinct, Outline Attached -Granulation Amt Small (1-33%) -Granulation Quality [place] -Necrosis Amt Large (67-100%) -Necrotic Tissue Type Adherent Slough -Texture (Ara-wound Skin Appearance) Assessed,Callus -Moisture (Ara-wound Skin Appearance) Assessed,Dry/ Scaly -Color (Ara-wound Skin Appearance) Assessed, Erythema -Temperature (Ara-wound Skin No Abnormality Appearance) (Pt Warm) -Tenderness on Palpation (Ara-wound No Skin Appearance) -Ulcer Cleansing Soap and Water -Foul Odor after Cleansing No -Anesthetic Used 5% Lidocaine Gel WC - Nurse 2 - General Ulcer CM Notes Start: 07/09/25 08:23 Freq: Status: Active Protocol: Activity Type Activity Date Activity User E-sign Co-sign Detail Recorded Client Recorded Date Recorded By Document 07/09/25 08:55 [id number] 07/09/25 09:05 GM 07/09/25 08:55 Wound Center Nurse 2 lt anterior ft -Time 08:55 -Correct Patient Yes -Correct Side, Site, Position Yes -Correct Procedure Yes -Procedure Performed Yes -Type of Procedure Debridement -Clinical Debridement Subcutaneous -Tissue Removed Subcutaneous -Post Debridement (cm) - Length 1.5 -Post Debridement (cm) - Width 1.0 -Post Debridement (cm) - Depth 0.1 -Total Square (Post) (cm) 1.50 -Area of Debridement (cm) - Length 1.5 -Area of Debridement (cm) - Width 1.0 -Total Square (Area) (cm) 1.50 -Tunneling No -Undermining/Tunneling No -Circular Undermining No -Wound/Ulcer Outcome Not Healed -Ulcer Cleansing Rinsed/ Irrigated with Saline -Foul Odor after Cleansing No -Bioengineered Tissue No -Bleeding Controlled with Pressure -Treatment Response Procedure Tolerated Well -Offloading No -Debridement - Subq, 1st 20sq cm No #18 Right Medial Ankle -Time 08:55 -Correct Patient Yes -Correct Side, Site, Position Yes -Correct Procedure Yes -Procedure Performed Yes -Type of Procedure Debridement -Clinical Debridement Subcutaneous -Tissue Removed Subcutaneous -Post Debridement (cm) - Length 1.6 -Post Debridement (cm) - Width 1.3 -Post Debridement (cm) - Depth 0.1 -Total Square (Post) (cm) 2.08 -Area of Debridement (cm) - Length 1.6 -Area of Debridement (cm) - Width 1.3 -Total Square (Area) (cm) 2.08 -Tunneling No -Undermining/Tunneling No -Circular Undermining No -Wound/Ulcer Outcome Not Healed -Ulcer Cleansing Rinsed/ Irrigated with Saline -Foul Odor after Cleansing No -Bioengineered Tissue No -Bleeding Controlled with Pressure -Treatment Response Procedure Tolerated Well -Offloading No -Debridement - Subq, 1st 20sq cm No #10 Left Medial Ankle -Time 08:56 -Correct Patient Yes -Correct Side, Site, Position Yes -Correct Procedure Yes -Procedure Performed Yes -Type of Procedure Debridement -Clinical Debridement Subcutaneous -Tissue Removed Subcutaneous -Post Debridement (cm) - Length 3.5 -Post Debridement (cm) - Width 1.4 -Post Debridement (cm) - Depth 0.1 -Total Square (Post) (cm) 4.90 -Area of Debridement (cm) - Length 3.5 -Area of Debridement (cm) - Width 1.4 -Total Square (Area) (cm) 4.90 -Tunneling No -Undermining/Tunneling No -Circular Undermining No -Wound/Ulcer Outcome Not Healed -Ulcer Cleansing Rinsed/ Irrigated with Saline -Foul Odor after Cleansing No -Bioengineered Tissue No -Bleeding Controlled with Pressure -Treatment Response Procedure Tolerated Well -Offloading No -Debridement - Subq, 1st 20sq cm Yes Pain Scale: 0-10 Numeric Is Patient Pain Free? Yes Additional Wound Wound debrided: Lower extremity/medial ankle Type of Debridement: Excisional debridement Anesthesia Used: 5% Lidocaine Gel Depth: Down to and including healthy tissue and in the subcutaneous layer Percentage of wound debrided: 100 Instrument Used: 5mm curette Tissue Removed: Slough and devitalized tissue Severity: Fat Layer Exposed Amount of bleeding with debridement: Mild Bleeding Controlled with: Pressure Patient tolerated procedure: Patient tolerated procedure well Additional Wound Wound debrided: Left foot (dorsal) Type of Debridement: Excisional debridement Anesthesia Used: 5% Lidocaine Gel Depth: Down to and including healthy tissue and in the subcutaneous layer Percentage of wound debrided: 100 Instrument Used: 5mm curette Tissue Removed: Slough and devitalized tissue Severity: Fat Layer Exposed Amount of bleeding with debridement: Mild Bleeding Controlled with: Pressure Patient tolerated procedure: Patient tolerated procedure well Assessment/Plan Assessment/Plan (1) Ulcer of left lower extremity with fat layer exposed: CODE(S): L97.922 - Non-pressure chronic ulcer of unspecified part of left lower leg with fat layer exposed (2) PVD (peripheral vascular disease): CODE(S): I73.9 - Peripheral vascular disease, unspecified (3) Chronic venous insufficiency: CODE(S): I87.2 - Venous insufficiency (chronic) (peripheral) (4) Delayed wound healing: CODE(S): T14.8XXD - Other injury of unspecified body region, subsequent encounter (5) Ulcer of right lower extremity with fat layer exposed: CODE(S): L97.912 - Non-pressure chronic ulcer of unspecified part of right lower leg with fat layer exposed PLAN: Plan Debridement done as documented above, procedure was well-tolerated. Status post recent foam sclerotherapy to left lower extremity after a failed initial attempt. Procedure itself was uneventful however, he believes that there was some worsening to his left lower extremity ulceration because he had to leave dressing in place following his procedure for 2 days. No clinical concern for infection. New left foot ulceration noted, as above has had ulcerations in this area in the past as well. Continue 30 minutes Dakin's soak daily. Apply Bactroban, Aquacel extra to ulcers, cover with KerraMax care. Consistent use of compression, leg elevation and exercise as tolerated strongly recommended, he voiced understanding. Compliance with dressing changes also strongly recommended. Increased protein intake, protein supplements, zinc and vitamin D. Optimal diabetes control recommended. Also advised that he moisturize his skin consistently. His questions were answered, and he was advised to call with any further questions or concerns. A 1 week follow-up was recommended however, due to other commitments he is unable to, follow-up in 2 weeks but strongly advised that he call if he notes any concerns. This note was generated with [employer] dictation software. It may contain incorrect words, spelling, and punctuation that were not noted in checking the note before signing.
--- NOTE | 2025-07-09 13:52 | WC ---
PHOTO-LEFT ANT FOOT 07/09/25
--- NOTE | 2025-07-09 13:53 | WC ---
PHOTO-LEFT MED FOOT 07/09/25
--- NOTE | 2025-07-09 13:54 | WC ---
PHOTO-RIGHT MED FOOT 07/09/25
[2025-07-23 08:09] VITALS: BP 148/96; PULSE 89; RESP 16; TEMP 36.4; O2SAT 98
--- NOTE | 2025-07-23 08:50 | PN.PCM_ITS ---
History of Present Illness Date of Service: 07/23/25 Chief Complaint: Bilateral lower extremity ulcers History of Wound: This is a 54-year-old male presents to wound healing center with a long-standing history of chronic venous insufficiency, chronic venous hypertension, lower extremity edema, lower extremity pain, and chronic left lower extremity ulcer. 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 He is currently wearing graduated compression stockings which are documented to be 20-30 mmHg compression and these are thigh high. He reports great compliance with use. He is also had previous arterial work-up with no intervention recommended by letter, his vascular surgeon. He denies taking nutritional supplementation. He saw dermatology and had a biopsy of the ulcer site. He also was previously treated by infectious disease for various contaminations and infections. He is not antibiotics at this time nor does he have any redness or odor coming from the wound. He denies fever, chill, nausea, vomiting, loss of appetite. 05/18/22: Mr. Jeronimo presents with a new right lower extremity ulceration. He states that this has been present for months and he has been trying to manage it at home without any significant improvement. Opened up months ago, no known pr ecipitating factor. Has been applying wound dressings without any significant improvement. He reports increased drainage. Denies significant pain. No chills, fever or feeling of unwell. 10/16/24: Mr. Jeronimo presents with a new right lower extremity ulceration. He states that it started out as a very small area that was slipping and then in the last week, became rather extensive. He also reports a foul smell. Has noted increase lower extremity edema. He states that he has been wearing his compression (20 to 30 mmHg) consistently. No chills, fever or otherwise feeling of unwell. Also has a new area on his left lower medial leg. He states that he has been applying same 1 products to these new areas. Progress of Wound: No new concerns reported at this time. All ulcers show improvement. Objective Data Objective Data Vital Signs: Vital Signs Temp Pulse Resp BP Pulse Ox O2 Del Method 97.6 F L 89 16 148/96 H 98 Room Air 07/23/25 08:09 07/23/25 08:09 07/23/25 08:09 07/23/25 08:09 07/23/25 08:09 07/23/25 08:09 Oxygen Delivery Method Room Air Charges/Coding Procedures Integumentary 111xxx-113xx: [id number] Lakeisha subq tissue 20 sq cm/< Physical Exam Const alert, oriented x3 and no apparent distress General Appearance: cooperative and comfortable HEENT normocephalic Head and Scalp: normal to inspection, normocephalic and atraumatic Eyes EOMs intact bilaterally Neck full ROM and supple General: normal visual inspection Resp normal respiratory effort Effort and Inspection: able to speak in complete sentences Extremity normal to inspection General Extremity: edema Skin Wounds: wounds noted size Size: See clinical note, bed granulating well, margins well defined, no odor, open and surrounding erythema Neuro oriented x3, CN's II-XII intact bilaterally, moves all extremities and no focal motor deficits Psych mental status grossly normal, thought process normal, cooperative and affect normal Debridement Note Debridement Note Wound debrided: Right medial ankle Type of Debridement: Excisional debridement Anesthesia Used: 5% Lidocaine Gel Depth: Down to and including healthy tissue and in the subcutaneous layer Percentage of wound debrided: 100 Instrument Used: 3mm curette Tissue Removed: Slough and devitalized tissue Severity: Fat Layer Exposed Amount of bleeding with debridement: Mild Bleeding Controlled with: Pressure Patient tolerated procedure: Patient tolerated procedure well Post-Debridement Measurements and Additional Note: Post-Debridement Measurements/Treatment KIMBERLY - Nurse 1 - General Ulcer Assessment Start: 07/09/25 08:23 Freq: Status: Active Protocol: SHANTA Activity Type Activity Date Activity User E-sign Co-sign Detail Recorded Client Recorded Date Recorded By Document 07/09/25 08:23 [email or web address] [id number] 07/09/25 08:34 KW Document 07/23/25 08:09 DIONISIO [id number] 07/23/25 08:22 DIONISIO 07/09/25 07/23/25 08:23 08:09 KIMBERLY - Today's Visit Information Type of service Follow-up Visit Follow-up Visit (Physician/METAL BUFFER (Physician/METAL BUFFER ) ) Arrival Mode Ambulatory Ambulatory Transfer Assistance None Patient Identification Verified (Name & Yes Yes ) Patient Requires Transmission-Based No Precautions Safety Precautions Fall Prevention Vital Signs Temperature (97.8 F-99.1 F) 96.7 F L 97.6 F L Temperature Source Temporal Temporal Pulse Rate (60-100) 99 89 Pulse Location Monitor Monitor Respiratory Rate (12-18) 18 16 Respiratory rate source Observation Monitor Pulse Oximetry 98 Oxygen Delivery Method Room Air Room Air Blood Pressure (90/60-120/80) 146/81 H 148/96 H Blood Pressure Mean (mm Hg) 102 113 Source Monitor Monitor Position Semi-Fowlers Semi-Fowlers Blood Pressure Location Left Arm Left Arm History Since Last Visit- (Skip if this is Patient's initial visit) Have you changed medications since your No No last visit? Any new allergies or adverse reactions No No Had a fall/change in ADL's that may No No increase risk of falls Signs or symptoms of abuse and/or No No neglect since last visit Have you been in the hospital since your No No last visit? Has dressing in place as prescribed Yes Yes Has compression in place as prescribed Yes Yes Has offloadiing in place as prescribed N/A N/A Experienced any changes in pain level or No No management Left Footwear Regular Shoe Regular Shoe Right Footwear Regular Shoe Regular Shoe Pain Scale: 0-10 Numeric Is Patient Pain Free? Yes Yes WC - Nurse 1 - General Ulcer Measurement Start: 07/09/25 08:23 Freq: Status: Active Protocol: Activity Type Activity Date Activity User E-sign Co-sign Detail Recorded Client Recorded Date Recorded By Document 07/09/25 08:23 KW [id number] 07/09/25 08:34 KW Document 07/23/25 08:09 DIONISIO [id number] 07/23/25 08:22 07/09/25 07/23/25 08:23 08:09 Wound Center Nurse 1 lt anterior ft -Combined with other wound No -Current Size (cm) - Length 1.1 1.3 -Current Size (cm) - Width 1 1 -Current Size (cm) - Depth 0.1 0.1 -Total Square Cm 1.1 1.3 -Date of Last Picture (Recall this 07/09/25 07/23/25 field) -Photo Taken Yes -Epithelialization Small 1-33% -Tunneling No -Undermining/Tunneling No -Circular Undermining No -Exudate Amt Small Small -Exudate Type Serosanguineous Serosanguineous -Wound Margin Distinct, Distinct, Outline Outline Attached Attached -Granulation Amt Small (1-33%) Small (1-33%) -Granulation Quality [place] -Slough/Fibrin Yes -Necrosis Amt Large (67-100%) Medium (34-66%) -Necrotic Tissue Type Adherent Slough Adherent Slough -Structure Exposed None/Limited to Skin Breakdown -Texture (Ara-wound Skin Appearance) Assessed Localized Edema -Moisture (Ara-wound Skin Appearance) Assessed,Dry/ Dry/Scaly Scaly -Color (Ara-wound Skin Appearance) Assessed Hemosiderin Staining -Temperature (Ara-wound Skin No Abnormality No Abnormality Appearance) (Pt Warm) (Pt Warm) -Tenderness on Palpation (Ara-wound No No Skin Appearance) -Ulcer Cleansing Soap and Water Rinsed/ Irrigated with Saline -Foul Odor after Cleansing No No -Anesthetic Used 5% Lidocaine 5% Lidocaine Gel Gel #18 Right Medial Ankle -Combined with other wound No -Current Size (cm) - Length 1.3 1.7 -Current Size (cm) - Width 1.3 1.2 -Current Size (cm) - Depth 0.1 0.2 -Total Square Cm 1.69 2.04 -Date of Last Picture (Recall this 07/09/25 07/23/25 field) -Photo Taken Yes -Tunneling No -Undermining/Tunneling No -Circular Undermining No -Exudate Amt Medium Small -Exudate Type Serosanguineous Serosanguineous -Wound Margin Distinct, Distinct, Outline Outline Attached Attached -Granulation Amt Large (67-100%) Large (67-100%) -Granulation Quality [place],Red Red -Slough/Fibrin Yes -Necrosis Amt Small (1-33%) Small (1-33%) -Necrotic Tissue Type Adherent Slough Adherent Slough -Structure Exposed None/Limited to Skin Breakdown -Texture (Ara-wound Skin Appearance) Assessed,Callus Localized Edema -Moisture (Ara-wound Skin Appearance) Assessed,Dry/ Dry/Scaly Scaly -Color (Ara-wound Skin Appearance) Assessed, No Abnormality, Erythema Assessed -Temperature (Ara-wound Skin No Abnormality No Abnormality Appearance) (Pt Warm) (Pt Warm) -Tenderness on Palpation (Ara-wound No No Skin Appearance) -Ulcer Cleansing Soap and Water Rinsed/ Irrigated with Saline -Foul Odor after Cleansing No No -Anesthetic Used 5% Lidocaine 5% Lidocaine Gel Gel #10 Left Medial Ankle -Combined with other wound No -Current Size (cm) - Length 3 3.6 -Current Size (cm) - Width 1 1 -Current Size (cm) - Depth 0.2 0.2 -Total Square Cm 3 3.6 -Date of Last Picture (Recall this 07/09/25 07/23/25 field) -Photo Taken Yes -Epithelialization Small 1-33% -Tunneling No -Undermining/Tunneling No -Circular Undermining No -Exudate Amt Medium Small -Exudate Type Serosanguineous Serosanguineous -Wound Margin Distinct, Distinct, Outline Outline Attached Attached -Granulation Amt Small (1-33%) Large (67-100%) -Granulation Quality [place] Red -Slough/Fibrin Yes -Necrosis Amt Large (67-100%) Small (1-33%) -Necrotic Tissue Type Adherent Slough Adherent Slough -Structure Exposed None/Limited to Skin Breakdown -Texture (Ara-wound Skin Appearance) Assessed,Callus Localized Edema -Moisture (Ara-wound Skin Appearance) Assessed,Dry/ Dry/Scaly Scaly -Color (Ara-wound Skin Appearance) Assessed, No Abnormality, Erythema Assessed -Temperature (Ara-wound Skin No Abnormality No Abnormality Appearance) (Pt Warm) (Pt Warm) -Tenderness on Palpation (Ara-wound No No Skin Appearance) -Ulcer Cleansing Soap and Water Rinsed/ Irrigated with Saline -Foul Odor after Cleansing No No -Anesthetic Used 5% Lidocaine 5% Lidocaine Gel Gel Lower Limb Edema Present No Right Calf (cm) 363 Right Ankle (cm) 228 Left Calf (cm) 360 Left Ankle (cm) 232 WC - Nurse 2 - General Ulcer CM Notes Start: 07/09/25 08:23 Freq: Status: Active Protocol: Activity Type Activity Date Activity User E-sign Co-sign Detail Recorded Client Recorded Date Recorded By Document 07/09/25 08:55 GM [id number] 07/09/25 09:05 GM Document 07/23/25 08:36 JF [id number] 07/23/25 08:40 JF 07/09/25 07/23/25 08:55 08:36 Wound Center Nurse 2 lt anterior ft -Time 08:55 08:36 -Correct Patient Yes Yes -Correct Side, Site, Position Yes Yes -Correct Procedure Yes Yes -Procedure Performed Yes Yes -Type of Procedure Debridement Debridement -Clinical Debridement Subcutaneous Subcutaneous -Tissue Removed Subcutaneous Subcutaneous -Post Debridement (cm) - Length 1.5 1.3 -Post Debridement (cm) - Width 1.0 1.0 -Post Debridement (cm) - Depth 0.1 0.1 -Total Square (Post) (cm) 1.50 1.30 -Area of Debridement (cm) - Length 1.5 1.3 -Area of Debridement (cm) - Width 1.0 1.0 -Total Square (Area) (cm) 1.50 1.30 -Tunneling No No -Undermining/Tunneling No No -Circular Undermining No No -Wound/Ulcer Outcome Not Healed Not Healed -Ulcer Cleansing Rinsed/ Rinsed/ Irrigated with Irrigated with Saline Saline -Foul Odor after Cleansing No No -Bioengineered Tissue No No -Bleeding Controlled with Pressure Pressure -Treatment Response Procedure Procedure Tolerated Well Tolerated Well -Offloading No No -Debridement - Subq, 1st 20sq cm No No #18 Right Medial Ankle -Time 08:55 08:36 -Correct Patient Yes Yes -Correct Side, Site, Position Yes Yes -Correct Procedure Yes Yes -Procedure Performed Yes Yes -Type of Procedure Debridement Debridement -Clinical Debridement Subcutaneous Subcutaneous -Tissue Removed Subcutaneous Subcutaneous -Post Debridement (cm) - Length 1.6 1.4 -Post Debridement (cm) - Width 1.3 1.2 -Post Debridement (cm) - Depth 0.1 0.1 -Total Square (Post) (cm) 2.08 1.68 -Area of Debridement (cm) - Length 1.6 1.4 -Area of Debridement (cm) - Width 1.3 1.2 -Total Square (Area) (cm) 2.08 1.68 -Tunneling No No -Undermining/Tunneling No No -Circular Undermining No No -Wound/Ulcer Outcome Not Healed Not Healed -Ulcer Cleansing Rinsed/ Rinsed/ Irrigated with Irrigated with Saline Saline -Foul Odor after Cleansing No No -Bioengineered Tissue No No -Bleeding Controlled with Pressure Pressure -Treatment Response Procedure Procedure Tolerated Well Tolerated Well -Offloading No No -Debridement - Subq, 1st 20sq cm No No #10 Left Medial Ankle -Time 08:56 08:37 -Correct Patient Yes Yes -Correct Side, Site, Position Yes Yes -Correct Procedure Yes Yes -Procedure Performed Yes Yes -Type of Procedure Debridement Debridement -Clinical Debridement Subcutaneous Subcutaneous -Tissue Removed Subcutaneous Subcutaneous -Post Debridement (cm) - Length 3.5 3.2 -Post Debridement (cm) - Width 1.4 1.1 -Post Debridement (cm) - Depth 0.1 0.3 -Total Square (Post) (cm) 4.90 3.52 -Area of Debridement (cm) - Length 3.5 3.2 -Area of Debridement (cm) - Width 1.4 1.1 -Total Square (Area) (cm) 4.90 3.52 -Tunneling No No -Undermining/Tunneling No No -Circular Undermining No No -Wound/Ulcer Outcome Not Healed Not Healed -Ulcer Cleansing Rinsed/ Rinsed/ Irrigated with Irrigated with Saline Saline -Foul Odor after Cleansing No No -Bioengineered Tissue No No -Bleeding Controlled with Pressure Pressure -Treatment Response Procedure Procedure Tolerated Well Tolerated Well -Offloading No No -Debridement - Subq, 1st 20sq cm Yes Yes Pain Scale: 0-10 Numeric Is Patient Pain Free? Yes Yes - Nurse 3 - General Ulcer D/C NN Start: 07/09/25 08:23 Freq: Status: Active Protocol: Activity Type Activity Date Activity User E-sign Co-sign Detail Recorded Client Recorded Date Recorded By Document 07/09/25 09:32 RB [id number] 07/09/25 09:34 RB Document 07/23/25 08:44 [id number] 07/23/25 08:45 07/09/25 07/23/25 09:32 08:44 Wound Care Center Nurse 3 #18 Right Medial Ankle -Ulcer Cleansing Rinsed/ Irrigated with Saline -Primary Dressing Covered/Secured with Dry Gauze, Dry Gauze, Secured with Secured with Tape Tape -Wound Comment(s) pt will apply dresing as prescribed at home #10 Left Medial Ankle -Primary Dressing Covered/Secured with Dry Gauze, Dry Gauze, Secured with Secured with Tape Tape BLE -Stockings Yes: pt own stockings Treatment Response Procedure Tolerated Well Pain Scale: 0-10 Numeric Is Patient Pain Free? Yes Yes - Visit Discharge Discharge Condition Stable Stable Ambulatory Status Ambulatory Ambulatory Transportation Private Auto Private Auto Medication Reconcilliation completed & No Yes provided to patient/care provider Clinical Summary of Care Provided Yes Yes Additional Wound Wound debrided: Left medial ankle Type of Debridement: Excisional debridement Depth: Down to and including healthy tissue and in the subcutaneous layer Percentage of wound debrided: 100 Instrument Used: 5mm curette Tissue Removed: Slough and devitalized tissue Severity: Fat Layer Exposed Amount of bleeding with debridement: Mild Bleeding Controlled with: Pressure Patient tolerated procedure: Patient tolerated procedure well Additional Wound Wound debrided: Left foot (dorsal) Type of Debridement: Excisional debridement Anesthesia Used: 5% Lidocaine Gel Depth: Down to and including healthy tissue and in the subcutaneous layer Percentage of wound debrided: 100 Instrument Used: 5mm curette Tissue Removed: Slough and devitalized tissue Severity: Fat Layer Exposed Amount of bleeding with debridement: Mild Bleeding Controlled with: Pressure Patient tolerated procedure: Patient tolerated procedure well Assessment/Plan Assessment/Plan (1) Ulcer of left lower extremity with fat layer exposed: CODE(S): L97.922 - Non-pressure chronic ulcer of unspecified part of left lower leg with fat layer exposed (2) PVD (peripheral vascular disease): CODE(S): I73.9 - Peripheral vascular disease, unspecified (3) Chronic venous insufficiency: CODE(S): I87.2 - Venous insufficiency (chronic) (peripheral) (4) Delayed wound healing: CODE(S): T14.8XXD - Other injury of unspecified body region, subsequent encounter (5) Ulcer of right lower extremity with fat layer exposed: CODE(S): L97.912 - Non-pressure chronic ulcer of unspecified part of right lower leg with fat layer exposed PLAN: Plan Debridement done as documented above, procedure was well-tolerated. No acute concerns reported at this time, some improvement noted as well. Continue 30 minutes Dakin's soak daily. Apply Bactroban, Aquacel extra to ulcers, cover with KerraMax care. Consistent use of compression, leg elevation and exercise as tolerated recommended, he voiced understanding. Compliance with dressing changes also strongly recommended. Increased protein intake, protein supplements, zinc and vitamin D. Optimal diabetes control recommended. Continue to moisturize skin consistently. His questions were answered, and he was advised to call with any further questions or concerns. Follow-up in 2 weeks or sooner if needed. This note was generated with [employer] software. It may contain incorrect words, spelling, and punctuation that were not noted in checking the note before signing.
--- NOTE | 2025-07-23 14:16 | WC ---
PHOTO-LEFT ANT FOOT 07/23/25
--- NOTE | 2025-07-23 14:26 | WC ---
PHOTO-RIGHT MED ANKLE 07/23/25
== END 2025-07-28 23:59 | disposition home or self-care (01) ==
LOC: WC 08:00
PROVIDERS: PCP Family Medicine; Referring Provider Family Medicine; Visit Provider Internal Medicine
DX: I73.9 Peripheral vascular disease, unspecified (principal); L97.522 Non-pressure chronic ulcer of other part of left foot with fat layer exposed; L97.312 Non-pressure chronic ulcer of right ankle with fat layer exposed; L97.322 Non-pressure chronic ulcer of left ankle with fat layer exposed; R60.0 Localized edema; I87.2 Venous insufficiency (chronic) (peripheral)
CPT/HCPCS: 11042

== ENCOUNTER 2025-08-27 08:00 | Outpatient (RCR) | payer OTHER, SELFPAY ==
[2025-08-06 08:11] VITALS: BP 155/81; PULSE 87; RESP 18; TEMP 36.6
--- NOTE | 2025-08-06 10:50 | PN.PCM_ITS ---
History of Present Illness Date of Service: 08/06/25 Chief Complaint: Bilateral lower extremity ulcers History of Wound: This is a 54-year-old male presents to wound healing center with a long-standing history of chronic venous insufficiency, chronic venous hypertension, lower extremity edema, lower extremity pain, and chronic left lower extremity ulcer. 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 He is currently wearing graduated compression stockings which are documented to be 20-30 mmHg compression and these are thigh high. He reports great compliance with use. He is also had previous arterial work-up with no intervention recommended by letter, his vascular surgeon. He denies taking nutritional supplementation. He saw dermatology and had a biopsy of the ulcer site. He also was previously treated by infectious disease for various contaminations and infections. He is not antibiotics at this time nor does he have any redness or odor coming from the wound. He denies fever, chill, nausea, vomiting, loss of appetite. 05/18/22: Mr. Jeronimo presents with a new right lower extremity ulceration. He states that this has been present for months and he has been trying to manage it at home without any significant improvement. Opened up months ago, no known pr ecipitating factor. Has been applying wound dressings without any significant improvement. He reports increased drainage. Denies significant pain. No chills, fever or feeling of unwell. 10/16/24: Mr. Jeronimo presents with a new right lower extremity ulceration. He states that it started out as a very small area that was slipping and then in the last week, became rather extensive. He also reports a foul smell. Has noted increase lower extremity edema. He states that he has been wearing his compression (20 to 30 mmHg) consistently. No chills, fever or otherwise feeling of unwell. Also has a new area on his left lower medial leg. He states that he has been applying same 1 products to these new areas. Progress of Wound: No acute concerns at this time. He states that he has been doing his dressing changes daily. Denies increased drainage or pain. No foul smell. Objective Data Objective Data Vital Signs: Vital Signs Temp Pulse Resp BP 97.8 F 87 18 155/81 H 08/06/25 08:11 08/06/25 08:11 08/06/25 08:11 08/06/25 08:11 Charges/Coding Procedures Integumentary 111xxx-113xx: [id number] Lakeisha subq tissue 20 sq cm/< Physical Exam Const alert, oriented x3 and no apparent distress General Appearance: cooperative and comfortable HEENT normocephalic Head and Scalp: normal to inspection, normocephalic and atraumatic Eyes EOMs intact bilaterally Neck full ROM and supple General: normal visual inspection Resp normal respiratory effort Effort and Inspection: able to speak in complete sentences Extremity normal to inspection General Extremity: edema Skin Wounds: wounds noted size Size: See clinical note, bed granulating well, margins well defined, no odor, open and surrounding erythema Neuro oriented x3, CN's II-XII intact bilaterally, moves all extremities and no focal motor deficits Psych mental status grossly normal, thought process normal, cooperative and affect normal Debridement Note Debridement Note Wound debrided: Right medial ankle Type of Debridement: Excisional debridement Anesthesia Used: 5% Lidocaine Gel Depth: Down to and including healthy tissue and in the subcutaneous layer Percentage of wound debrided: 100 Instrument Used: 5mm curette Tissue Removed: Slough and devitalized tissue Severity: Fat Layer Exposed Amount of bleeding with debridement: Mild Bleeding Controlled with: Pressure Patient tolerated procedure: Patient tolerated procedure well Post-Debridement Measurements and Additional Note: Post-Debridement Measurements/Treatment - Nurse 1 - General Ulcer Assessment Start: 08/06/25 08:10 Freq: Status: Active Protocol: SHANTA Activity Type Activity Date Activity User E-sign Co-sign Detail Recorded Client Recorded Date Recorded By Document 08/06/25 08:11 [id number] 08/06/25 08:15 RB 08/06/25 08:11 - Today's Visit Information Type of service Follow-up Visit (Physician/FAMILY RESOURCE MANAGEMENT PROFESSOR ) Arrival Mode Ambulatory Transfer Assistance None Patient Identification Verified (Name & Yes ) Patient Requires Transmission-Based No Precautions Vital Signs Temperature (97.8 F-99.1 F) 97.8 F Temperature Source Temporal Pulse Rate (60-100) 87 Pulse Location Monitor Respiratory Rate (12-18) 18 Respiratory rate source Observation Blood Pressure (90/60-120/80) 155/81 H Blood Pressure Mean (mm Hg) 105 Source Monitor Position Semi-Fowlers Blood Pressure Location Right Arm History Since Last Visit- (Skip if this is Patient's initial visit) Have you changed medications since your No last visit? Any new allergies or adverse reactions No Had a fall/change in ADL's that may No increase risk of falls Signs or symptoms of abuse and/or No neglect since last visit Have you been in the hospital since your No last visit? Has dressing in place as prescribed Yes Has compression in place as prescribed Yes Has offloadiing in place as prescribed N/A Experienced any changes in pain level or No management Left Footwear Regular Shoe Right Footwear Regular Shoe Pain Scale: 0-10 Numeric Is Patient Pain Free? Yes WC - Nurse 1 - General Ulcer Measurement Start: 08/06/25 08:10 Freq: Status: Active Protocol: Activity Type Activity Date Activity User E-sign Co-sign Detail Recorded Client Recorded Date Recorded By Document 08/06/25 08:11 RB [id number] 08/06/25 08:15 RB Edit Result 08/06/25 08:11 RB (1) [id number] 08/06/25 08:15 RB (1) #10 Left Medial Ankle - Current Size (cm) - Depth 0.5 => 0.4 08/06/25 08:11 Wound Center Nurse 1 lt anterior ft -Combined with other wound No -Current Size (cm) - Length 1.3 -Current Size (cm) - Width 1 -Current Size (cm) - Depth 0.1 -Total Square Cm 1.3 -Photo Taken Yes -Tunneling No -Undermining/Tunneling No -Circular Undermining No -Exudate Amt Medium -Exudate Type Serosanguineous -Wound Margin Distinct, Outline Attached -Granulation Quality Archie -Slough/Fibrin Yes -Necrosis Amt Medium (34-66%) -Necrotic Tissue Type Adherent Slough -Structure Exposed N/A -Texture (Ara-wound Skin Appearance) Assessed -Moisture (Ara-wound Skin Appearance) Assessed,Dry/ Scaly -Color (Ara-wound Skin Appearance) Assessed -Temperature (Ara-wound Skin No Abnormality Appearance) (Pt Warm) -Tenderness on Palpation (Ara-wound No Skin Appearance) -Ulcer Cleansing Wound Cleanser -Foul Odor after Cleansing Yes -Anesthetic Used 5% Lidocaine Gel #18 Right Medial Ankle -Combined with other wound No -Current Size (cm) - Length 1.5 -Current Size (cm) - Width 0.9 -Current Size (cm) - Depth 0.1 -Total Square Cm 1.35 -Photo Taken Yes -Tunneling No -Undermining/Tunneling No -Circular Undermining No -Exudate Amt Medium -Exudate Type Serosanguineous -Wound Margin Distinct, Outline Attached -Granulation Amt Medium (34-66%) -Granulation Quality Archie -Slough/Fibrin Yes -Necrosis Amt Medium (34-66%) -Necrotic Tissue Type Adherent Slough -Structure Exposed N/A -Texture (Ara-wound Skin Appearance) Assessed -Moisture (Ara-wound Skin Appearance) Assessed -Color (Ara-wound Skin Appearance) Assessed -Temperature (Ara-wound Skin No Abnormality Appearance) (Pt Warm) -Tenderness on Palpation (Ara-wound No Skin Appearance) -Ulcer Cleansing Wound Cleanser -Foul Odor after Cleansing No -Anesthetic Used 5% Lidocaine Gel #10 Left Medial Ankle -Combined with other wound No -Current Size (cm) - Length 3.5 -Current Size (cm) - Width 1.3 -Current Size (cm) - Depth 0.4 -Total Square Cm 4.55 -Photo Taken Yes -Tunneling No -Undermining/Tunneling No -Circular Undermining No -Exudate Amt Medium -Exudate Type Serosanguineous -Wound Margin Distinct, Outline Attached -Granulation Amt Medium (34-66%) -Granulation Quality Archie -Slough/Fibrin Yes -Necrosis Amt Medium (34-66%) -Necrotic Tissue Type Adherent Slough -Structure Exposed N/A -Texture (Ara-wound Skin Appearance) Assessed -Moisture (Ara-wound Skin Appearance) Weeping -Color (Ara-wound Skin Appearance) Assessed -Temperature (Ara-wound Skin No Abnormality Appearance) (Pt Warm) -Tenderness on Palpation (Ara-wound No Skin Appearance) -Ulcer Cleansing Wound Cleanser -Foul Odor after Cleansing No -Anesthetic Used 5% Lidocaine Gel Lower Limb Edema Present Yes Right Calf (cm) 37.5 Right Ankle (cm) 22 Left Calf (cm) 36.5 Left Ankle (cm) 23 WC - Nurse 2 - General Ulcer CM Notes Start: 08/06/25 08:10 Freq: Status: Active Protocol: Activity Type Activity Date Activity User E-sign Co-sign Detail Recorded Client Recorded Date Recorded By Document 08/06/25 08:22 [id number] 08/06/25 08:31 08/06/25 08:22 Wound Center Nurse 2 lt anterior ft -Time 08:22 -Correct Patient Yes -Correct Side, Site, Position Yes -Correct Procedure Yes -Procedure Performed Yes -Type of Procedure Debridement -Clinical Debridement Subcutaneous -Tissue Removed Subcutaneous -Post Debridement (cm) - Length 1.3 -Post Debridement (cm) - Width 1.0 -Post Debridement (cm) - Depth 0.1 -Total Square (Post) (cm) 1.30 -Area of Debridement (cm) - Length 1.3 -Area of Debridement (cm) - Width 1.0 -Total Square (Area) (cm) 1.30 -Tunneling No -Undermining/Tunneling No -Circular Undermining No -Wound/Ulcer Outcome Not Healed -Ulcer Cleansing Rinsed/ Irrigated with Saline -Foul Odor after Cleansing No -Bioengineered Tissue No -Bleeding Controlled with Pressure -Treatment Response Procedure Tolerated Well -Offloading No -Debridement - Subq, 1st 20sq cm No #18 Right Medial Ankle -Time 08:23 -Correct Patient Yes -Correct Side, Site, Position Yes -Correct Procedure Yes -Procedure Performed Yes -Type of Procedure Debridement -Clinical Debridement Subcutaneous -Tissue Removed Subcutaneous -Post Debridement (cm) - Length 1.6 -Post Debridement (cm) - Width 1.0 -Post Debridement (cm) - Depth 0.1 -Total Square (Post) (cm) 1.60 -Area of Debridement (cm) - Length 1.6 -Area of Debridement (cm) - Width 1.0 -Total Square (Area) (cm) 1.60 -Tunneling No -Undermining/Tunneling No -Circular Undermining No -Wound/Ulcer Outcome Not Healed -Ulcer Cleansing Rinsed/ Irrigated with Saline -Foul Odor after Cleansing No -Bioengineered Tissue No -Bleeding Controlled with Pressure -Treatment Response Procedure Tolerated Well -Offloading No -Debridement - Subq, 1st 20sq cm No #10 Left Medial Ankle -Time 08:23 -Correct Patient Yes -Correct Side, Site, Position Yes -Correct Procedure Yes -Procedure Performed Yes -Type of Procedure Debridement -Clinical Debridement Subcutaneous -Tissue Removed Subcutaneous -Post Debridement (cm) - Length 3.2 -Post Debridement (cm) - Width 1.0 -Post Debridement (cm) - Depth 0.2 -Total Square (Post) (cm) 3.20 -Area of Debridement (cm) - Length 3.2 -Area of Debridement (cm) - Width 1.0 -Total Square (Area) (cm) 3.20 -Tunneling No -Undermining/Tunneling No -Circular Undermining No -Wound/Ulcer Outcome Not Healed -Ulcer Cleansing Rinsed/ Irrigated with Saline -Foul Odor after Cleansing No -Bioengineered Tissue No -Bleeding Controlled with Pressure -Treatment Response Procedure Tolerated Well -Offloading No -Debridement - Subq, 1st 20sq cm Yes Pain Scale: 0-10 Numeric Is Patient Pain Free? Yes - Nurse 3 - General Ulcer D/C NN Start: 08/06/25 08:10 Freq: Status: Active Protocol: Activity Type Activity Date Activity User E-sign Co-sign Detail Recorded Client Recorded Date Recorded By Document 08/06/25 08:38 CARLOS [id number] 08/06/25 08:39 CARLOS 08/06/25 08:38 Wound Care Center Nurse 3 lt anterior ft -Primary Dressing Covered/Secured with Dry Gauze, Secured with Tape #18 Right Medial Ankle -Primary Dressing Covered/Secured with Dry Gauze, Secured with Tape #10 Left Medial Ankle -Primary Dressing Covered/Secured with Dry Gauze, Secured with Tape Pain Scale: 0-10 Numeric Is Patient Pain Free? Yes WC - Visit Discharge Discharge Condition Stable Transportation Private Auto Medication Reconcilliation completed & No provided to patient/care provider Clinical Summary of Care Provided No Notes: patient applied his own compression stockings. 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 Additional Wound Wound debrided: Left medial ankle Type of Debridement: Excisional debridement Depth: Down to and including healthy tissue Percentage of wound debrided: 100 Instrument Used: 5mm curette Tissue Removed: Slough and devitalized tissue Severity: Fat Layer Exposed Amount of bleeding with debridement: Mild Bleeding Controlled with: Pressure Patient tolerated procedure: Patient tolerated procedure well Additional Wound Wound debrided: Left dorsal foot Type of Debridement: Excisional debridement Anesthesia Used: 5% Lidocaine Gel Depth: Down to and including healthy tissue and in the subcutaneous layer Percentage of wound debrided: 100 Instrument Used: 5mm curette Tissue Removed: Slough and devitalized tissue Severity: Fat Layer Exposed Amount of bleeding with debridement: Mild Bleeding Controlled with: Pressure Assessment/Plan Assessment/Plan (1) Ulcer of left lower extremity with fat layer exposed: CODE(S): L97.922 - Non-pressure chronic ulcer of unspecified part of left lower leg with fat layer exposed (2) PVD (peripheral vascular disease): CODE(S): I73.9 - Peripheral vascular disease, unspecified (3) Chronic venous insufficiency: CODE(S): I87.2 - Venous insufficiency (chronic) (peripheral) (4) Delayed wound healing: CODE(S): T14.8XXD - Other injury of unspecified body region, subsequent encounter (5) Ulcer of right lower extremity with fat layer exposed: CODE(S): L97.912 - Non-pressure chronic ulcer of unspecified part of right lower leg with fat layer exposed PLAN: Plan Debridement done as documented above, procedure was well-tolerated. As above, no new concerns. Some improvement noted. Continue 30 minutes Dakin's soak daily. Apply Bactroban, Aquacel extra to ulcers, cover with KerraMax care. Consistent use of compression, leg elevation and exercise as tolerated recommended, he voiced understanding. Compliance with dressing changes also strongly recommended. Increased protein intake, protein supplements, zinc and vitamin D. Optimal diabetes control recommended. Continue to moisturize skin consistently. Continue follow-up with vascular, his appointment today was rescheduled, plan is for repeat imaging. His questions were answered, and he was advised to call with any further questions or concerns. Follow-up in 2 weeks or sooner if needed. This note was generated with [employer] dictation software. It may contain incorrect words, spelling, and punctuation that were not noted in checking the note before signing.
--- NOTE | 2025-08-07 10:21 | WC ---
PHOTO-RIGHT ANKLE 08/06/25
--- NOTE | 2025-08-07 10:23 | WC ---
PHOTO-LEFT FOOT 08/06/25
--- NOTE | 2025-08-07 10:24 | WC ---
PHOTO-RIGHT ANKLE 08/06/25
[2025-08-20 08:15] VITALS: BP 144/95; PULSE 91; RESP 18; TEMP 36.1
--- NOTE | 2025-08-20 08:51 | PN.PCM_ITS ---
History of Present Illness Date of Service: 08/20/25 Chief Complaint: Bilateral lower extremity ulcers History of Wound: This is a 54-year-old male presents to wound healing center with a long-standing history of chronic venous insufficiency, chronic venous hypertension, lower extremity edema, lower extremity pain, and chronic left lower extremity ulcer. The patient has previously undergone endovenous laser ablation of the left and right great saphenous vein, the small saphenous vein, the left accessory saphenous vein, and an incompetent left calf assistance representative vein located 15 cm proximal to the left medial malleolus. He is currently wearing graduated compression stockings which are documented to be 20-30 mmHg compression and these are thigh high. He reports great compliance with use. He is also had previous arterial work-up with no intervention recommended by letter, his vascular surgeon. He denies taking nutritional supplementation. He saw dermatology and had a biopsy of the ulcer site. He also was previously treated by infectious disease for various contaminations and infections. He is not antibiotics at this time nor does he have any redness or odor coming from the wound. He denies fever, chill, nausea, vomiting, loss of appetite. 05/18/22: Mr. Jeronimo presents with a new right lower extremity ulceration. He states that this has been present for months and he has been trying to manage it at home without any significant improvement. Opened up months ago, no known pr ecipitating factor. Has been applying wound dressings without any significant improvement. He reports increased drainage. Denies significant pain. No chills, fever or feeling of unwell. 10/16/24: Mr. Jeronimo presents with a new right lower extremity ulceration. He states that it started out as a very small area that was slipping and then in the last week, became rather extensive. He also reports a foul smell. Has noted increase lower extremity edema. He states that he has been wearing his compression (20 to 30 mmHg) consistently. No chills, fever or otherwise feeling of unwell. Also has a new area on his left lower medial leg. He states that he has been applying same 1 products to these new areas. Progress of Wound: Increased drainage and foul smell from right lower extremity. He states that he has been doing dressing changes as recommended and has been utilizing his compression consistently. No chills, fever or otherwise feeling of unwell. Has a visit with vascular surgery next week. Objective Data Objective Data Vital Signs: Vital Signs Temp Pulse Resp BP 97 F L 91 18 144/95 H 08/20/25 08:15 08/20/25 08:15 08/20/25 08:15 08/20/25 08:15 Charges/Coding Procedures Integumentary [id number]: [id number] Lakeisha subq tissue 20 sq cm/< Physical Exam Const alert, oriented x3 and no apparent distress General Appearance: cooperative and comfortable HEENT normocephalic Head and Scalp: normal to inspection, normocephalic and atraumatic Eyes EOMs intact bilaterally Neck full ROM and supple General: normal visual inspection Resp normal respiratory effort Effort and Inspection: able to speak in complete sentences Extremity normal to inspection General Extremity: edema Skin Wounds: wounds noted size Size: See clinical note, bed granulating well, margins well defined, malodorous, open and surrounding erythema Neuro oriented x3, CN's II-XII intact bilaterally, moves all extremities and no focal motor deficits Psych mental status grossly normal, thought process normal, cooperative and affect normal Debridement Note Debridement Note Wound debrided: Right Lower Extremity/Medial Ankle Type of Debridement: Excisional debridement Anesthesia Used: 5% Lidocaine Gel Depth: in the subcutaneous layer Percentage of wound debrided: 100 Instrument Used: 5mm curette Tissue Removed: Slough and devitalized tissue Severity: Fat Layer Exposed Amount of bleeding with debridement: Mild Bleeding Controlled with: Compression and gauze Patient tolerated procedure: Patient tolerated procedure well Post-Debridement Measurements and Additional Note: Post-Debridement Measurements/Treatment - Nurse 1 - General Ulcer Assessment Start: 08/06/25 08:10 Freq: Status: Active Protocol: SHANTA Activity Type Activity Date Activity User E-sign Co-sign Detail Recorded Client Recorded Date Recorded By Document 08/06/25 08:11 RB [id number] 08/06/25 08:15 RB Document 08/20/25 08:15 RB [id number] 08/20/25 08:19 RB 08/06/25 08/20/25 08:11 08:15 - Today's Visit Information Type of service Follow-up Visit Follow-up Visit (Physician/AUTOMOTIVE DRIVABILITY TECHNICIAN (Physician/AUTOMOTIVE DRIVABILITY TECHNICIAN ) ) Arrival Mode Ambulatory Ambulatory Transfer Assistance None None Patient Identification Verified (Name & Yes Yes ) Patient Requires Transmission-Based No No Precautions Vital Signs Temperature (97.8 F-99.1 F) 97.8 F 97 F L Temperature Source Temporal Temporal Pulse Rate (60-100) 87 91 Pulse Location Monitor Monitor Respiratory Rate (12-18) 18 18 Respiratory rate source Observation Observation Blood Pressure (90/60-120/80) 155/81 H 144/95 H Blood Pressure Mean (mm Hg) 105 111 Source Monitor Monitor Position Semi-Fowlers Semi-Fowlers Blood Pressure Location Right Arm Left Arm History Since Last Visit- (Skip if this is Patient's initial visit) Have you changed medications since your No No last visit? Any new allergies or adverse reactions No No Had a fall/change in ADL's that may No No increase risk of falls Signs or symptoms of abuse and/or No No neglect since last visit Have you been in the hospital since your No No last visit? Has dressing in place as prescribed Yes Yes Has compression in place as prescribed Yes Yes Has offloadiing in place as prescribed N/A N/A Experienced any changes in pain level or No No management Left Footwear Regular Shoe Right Footwear Regular Shoe Pain Scale: 0-10 Numeric Is Patient Pain Free? Yes Yes WC - Nurse 1 - General Ulcer Measurement Start: 08/06/25 08:10 Freq: Status: Active Protocol: Activity Type Activity Date Activity User E-sign Co-sign Detail Recorded Client Recorded Date Recorded By Document 08/06/25 08:11 RB [id number] 08/06/25 08:15 RB Edit Result 08/06/25 08:11 RB (1) [id number] 08/06/25 08:15 RB Document 08/20/25 08:15 RB [id number] 08/20/25 08:19 RB (1) #10 Left Medial Ankle - Current Size (cm) - Depth 0.5 => 0.4 08/06/25 08/20/25 08:11 08:15 Wound Center Nurse 1 lt anterior ft -Combined with other wound No No -Current Size (cm) - Length 1.3 1.5 -Current Size (cm) - Width 1 1 -Current Size (cm) - Depth 0.1 0.1 -Total Square Cm 1.3 1.5 -Photo Taken Yes Yes -Tunneling No No -Undermining/Tunneling No No -Circular Undermining No No -Exudate Amt Medium Medium -Exudate Type Serosanguineous Serosanguineous -Wound Margin Distinct, Thickened & Outline Rolled Under Attached -Granulation Amt Medium (34-66%) -Granulation Quality Dunlo Dunlo -Slough/Fibrin Yes Yes -Necrosis Amt Medium (34-66%) Medium (34-66%) -Necrotic Tissue Type Adherent Slough Adherent Slough -Structure Exposed N/A N/A -Texture (Ara-wound Skin Appearance) Assessed Assessed -Moisture (Ara-wound Skin Appearance) Assessed,Dry/ Assessed Scaly -Color (Ara-wound Skin Appearance) Assessed Assessed -Temperature (Ara-wound Skin No Abnormality No Abnormality Appearance) (Pt Warm) (Pt Warm) -Tenderness on Palpation (Ara-wound No No Skin Appearance) -Ulcer Cleansing Wound Cleanser Wound Cleanser -Foul Odor after Cleansing Yes No -Anesthetic Used 5% Lidocaine 5% Lidocaine Gel Gel #18 Right Medial Ankle -Combined with other wound No No -Current Size (cm) - Length 1.5 2.4 -Current Size (cm) - Width 0.9 1.7 -Current Size (cm) - Depth 0.1 0.3 -Total Square Cm 1.35 4.08 -Photo Taken Yes Yes -Tunneling No No -Undermining/Tunneling No No -Circular Undermining No No -Exudate Amt Medium Medium -Exudate Type Serosanguineous Serosanguineous -Wound Margin Distinct, Thickened & Outline Rolled Under Attached -Granulation Amt Medium (34-66%) Medium (34-66%) -Granulation Quality Dunlo Dunlo -Slough/Fibrin Yes Yes -Necrosis Amt Medium (34-66%) Medium (34-66%) -Necrotic Tissue Type Adherent Slough Adherent Slough -Structure Exposed N/A N/A -Texture (Ara-wound Skin Appearance) Assessed Assessed -Moisture (Ara-wound Skin Appearance) Assessed Assessed -Color (Ara-wound Skin Appearance) Assessed Assessed -Temperature (Ara-wound Skin No Abnormality No Abnormality Appearance) (Pt Warm) (Pt Warm) -Tenderness on Palpation (Ara-wound No No Skin Appearance) -Ulcer Cleansing Wound Cleanser Wound Cleanser -Foul Odor after Cleansing No No -Anesthetic Used 5% Lidocaine 5% Lidocaine Gel Gel #10 Left Medial Ankle -Combined with other wound No No -Current Size (cm) - Length 3.5 3.5 -Current Size (cm) - Width 1.3 1.4 -Current Size (cm) - Depth 0.4 0.2 -Total Square Cm 4.55 4.90 -Photo Taken Yes Yes -Tunneling No No -Undermining/Tunneling No No -Circular Undermining No No -Exudate Amt Medium Medium -Exudate Type Serosanguineous Serosanguineous -Wound Margin Distinct, Thickened & Outline Rolled Under Attached -Granulation Amt Medium (34-66%) Medium (34-66%) -Granulation Quality Dunlo Dunlo -Slough/Fibrin Yes Yes -Necrosis Amt Medium (34-66%) Medium (34-66%) -Necrotic Tissue Type Adherent Slough Adherent Slough -Structure Exposed N/A N/A -Texture (Ara-wound Skin Appearance) Assessed Assessed -Moisture (Ara-wound Skin Appearance) Weeping Dry/Scaly -Color (Ara-wound Skin Appearance) Assessed Assessed -Temperature (Ara-wound Skin No Abnormality No Abnormality Appearance) (Pt Warm) (Pt Warm) -Tenderness on Palpation (Ara-wound No No Skin Appearance) -Ulcer Cleansing Wound Cleanser Wound Cleanser -Foul Odor after Cleansing No No -Anesthetic Used 5% Lidocaine 5% Lidocaine Gel Gel Lower Limb Edema Present Yes Yes Right Calf (cm) 37.5 37.5 Right Ankle (cm) 22 22.1 Left Calf (cm) 36.5 37 Left Ankle (cm) 23 23 - Nurse 2 - General Ulcer CM Notes Start: 08/06/25 08:10 Freq: Status: Active Protocol: Activity Type Activity Date Activity User E-sign Co-sign Detail Recorded Client Recorded Date Recorded By Document 08/06/25 08:22 [id number] 08/06/25 08:31 Document 08/20/25 08:25 [id number] 08/20/25 08:37 08/06/25 08/20/25 08:22 08:25 Wound Center Nurse 2 lt anterior ft -Time 08:22 08:30 -Correct Patient Yes Yes -Correct Side, Site, Position Yes Yes -Correct Procedure Yes Yes -Procedure Performed Yes Yes -Type of Procedure Debridement Debridement -Clinical Debridement Subcutaneous Subcutaneous -Tissue Removed Subcutaneous Subcutaneous -Post Debridement (cm) - Length 1.3 1.5 -Post Debridement (cm) - Width 1.0 1.0 -Post Debridement (cm) - Depth 0.1 0.1 -Total Square (Post) (cm) 1.30 1.50 -Area of Debridement (cm) - Length 1.3 1.5 -Area of Debridement (cm) - Width 1.0 1.0 -Total Square (Area) (cm) 1.30 1.50 -Tunneling No No -Undermining/Tunneling No No -Circular Undermining No No -Wound/Ulcer Outcome Not Healed Not Healed -Ulcer Cleansing Rinsed/ Rinsed/ Irrigated with Irrigated with Saline Saline -Foul Odor after Cleansing No No -Bioengineered Tissue No No -Bleeding Controlled with Pressure Pressure -Treatment Response Procedure Procedure Tolerated Well Tolerated Well -Offloading No No -Debridement - Subq, 1st 20sq cm No No #18 Right Medial Ankle -Time 08: 08:31 -Correct Patient Yes Yes -Correct Side, Site, Position Yes Yes -Correct Procedure Yes Yes -Procedure Performed Yes Yes -Type of Procedure Debridement Debridement -Clinical Debridement Subcutaneous Subcutaneous -Tissue Removed Subcutaneous Subcutaneous -Post Debridement (cm) - Length 1.6 2.3 -Post Debridement (cm) - Width 1.0 1.7 -Post Debridement (cm) - Depth 0.1 0.3 -Total Square (Post) (cm) 1.60 3.91 -Area of Debridement (cm) - Length 1.6 2.3 -Area of Debridement (cm) - Width 1.0 1.7 -Total Square (Area) (cm) 1.60 3.91 -Tunneling No No -Undermining/Tunneling No No -Circular Undermining No No -Wound/Ulcer Outcome Not Healed Not Healed -Ulcer Cleansing Rinsed/ Rinsed/ Irrigated with Irrigated with Saline Saline -Foul Odor after Cleansing No No -Bioengineered Tissue No No -Bleeding Controlled with Pressure Pressure -Treatment Response Procedure Procedure Tolerated Well Tolerated Well -Offloading No -Debridement - Subq, 1st 20sq cm No No #10 Left Medial Ankle -Time 08: 08:32 -Correct Patient Yes Yes -Correct Side, Site, Position Yes Yes -Correct Procedure Yes Yes -Procedure Performed Yes Yes -Type of Procedure Debridement Debridement -Clinical Debridement Subcutaneous Subcutaneous -Tissue Removed Subcutaneous Subcutaneous -Post Debridement (cm) - Length 3.2 3.3 -Post Debridement (cm) - Width 1.0 1.0 -Post Debridement (cm) - Depth 0.2 0.3 -Total Square (Post) (cm) 3.20 3.30 -Area of Debridement (cm) - Length 3.2 3.3 -Area of Debridement (cm) - Width 1.0 1.0 -Total Square (Area) (cm) 3.20 3.30 -Tunneling No No -Undermining/Tunneling No No -Circular Undermining No No -Wound/Ulcer Outcome Not Healed Not Healed -Ulcer Cleansing Rinsed/ Rinsed/ Irrigated with Irrigated with Saline Saline -Foul Odor after Cleansing No No -Bioengineered Tissue No No -Bleeding Controlled with Pressure Pressure -Treatment Response Procedure Procedure Tolerated Well Tolerated Well -Offloading No No -Debridement - Subq, 1st 20sq cm Yes Yes Pain Scale: 0-10 Numeric Is Patient Pain Free? Yes Yes - Nurse 3 - General Ulcer D/C NN Start: 08/06/25 08:10 Freq: Status: Active Protocol: Activity Type Activity Date Activity User E-sign Co-sign Detail Recorded Client Recorded Date Recorded By Document 08/06/25 08:38 [id number] 08/06/25 08:39 Document 08/20/25 08:46 ND [id number] 08/20/25 08:47 ND 08/06/25 08/20/25 08:38 08:46 Wound Care Center Nurse 3 lt anterior ft -Primary Dressing Covered/Secured with Dry Gauze, Secured with Tape #18 Right Medial Ankle -Primary Dressing Covered/Secured with Dry Gauze, Secured with Tape -Patient Supplied Dressing Yes -Wound Comment(s) patient brought own supplies in. #10 Left Medial Ankle -Primary Dressing Covered/Secured with Dry Gauze, Secured with Tape Pain Scale: 0-10 Numeric Is Patient Pain Free? Yes Yes - Visit Discharge Discharge Condition Stable Stable Ambulatory Status Ambulatory Transportation Private Auto Private Auto Medication Reconcilliation completed & No No provided to patient/care provider Clinical Summary of Care Provided No Yes Notes: patient applied pt brings in his own own dressings. compression stockings. 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 Additional Wound Wound debrided: Left Medial Ankle Anesthesia Used: 5% Lidocaine Gel Depth: Down to and including healthy tissue and in the subcutaneous layer Percentage of wound debrided: 100 Instrument Used: 5mm curette Tissue Removed: Slough and devitalized tissue Severity: Fat Layer Exposed Amount of bleeding with debridement: Mild Bleeding Controlled with: Pressure Patient tolerated procedure: Patient tolerated procedure well Additional Wound Wound debrided: Left Foot Type of Debridement: Excisional debridement Anesthesia Used: 5% Lidocaine Gel Depth: Down to and including healthy tissue and in the subcutaneous layer Percentage of wound debrided: 100 Instrument Used: 5mm curette Tissue Removed: Slough and devitalized tissue Severity: Fat Layer Exposed Amount of bleeding with debridement: Mild Bleeding Controlled with: Pressure Assessment/Plan Assessment/Plan (1) Ulcer of left lower extremity with fat layer exposed: CODE(S): L97.922 - Non-pressure chronic ulcer of unspecified part of left lower leg with fat layer exposed (2) PVD (peripheral vascular disease): CODE(S): I73.9 - Peripheral vascular disease, unspecified (3) Chronic venous insufficiency: CODE(S): I87.2 - Venous insufficiency (chronic) (peripheral) (4) Delayed wound healing: CODE(S): T14.8XXD - Other injury of unspecified body region, subsequent encounter (5) Ulcer of right lower extremity with fat layer exposed: CODE(S): L97.912 - Non-pressure chronic ulcer of unspecified part of right lower leg with fat layer exposed PLAN: Plan Debridement done as documented above, procedure was well-tolerated. Increased drainage and foul smell noted to the right medial ankle ulcer. As above, has an appointment with vascular surgery for postprocedure follow-up next week. Initial appointment had to be canceled. Cultures taken, will review. For now, continue 30 minutes Dakin's soak daily. Apply Bactroban, Aquacel extra to ulcers, cover with KerraMax care. Change more often if soaked. Consistent use of compression again discussed. He was advised to increase compression from 20- 30 to 30 to 40 mmHg. He appears reluctant to. Compliance with dressing changes also strongly recommended. Increased protein intake, protein supplements, zinc and vitamin D. Optimal diabetes control recommended. Continue to moisturize skin consistently. Continue follow-up with vascular, his appointment today was rescheduled, plan is for repeat imaging. His questions were answered, and he was advised to call with any further questions or concerns. Follow-up in 1 week. This note was generated with Dragon dictation software. It may contain incorrect words, spelling, and punctuation that were not noted in checking the note before signing.
--- NOTE | 2025-08-21 09:58 | WC ---
PHOTO-LEFT ANT FOOT 08/20/25
--- NOTE | 2025-08-21 09:59 | WC ---
PHOTO-LEFT MED ANKLE 08/20/25
--- NOTE | 2025-08-21 09:59 | WC ---
PHOTO-LEFT ANT FOOT 08/20/25
--- NOTE | 2025-08-21 10:02 | WC ---
PHOTO-RIGHT MED FOOT 08/20/25
[2025-08-27 08:02] VITALS: BP 145/88; PULSE 80; RESP 18; TEMP 35.5
--- NOTE | 2025-08-27 08:43 | PCM.WC.PN ---
History of Present Illness Date of Service: 08/27/25 Chief Complaint: Bilateral lower extremity ulcers History of Wound: This is a 54-year-old male presents to wound healing center with a long-standing history of chronic venous insufficiency, chronic venous hypertension, lower extremity edema, lower extremity pain, and chronic left lower extremity ulcer. The patient has previously undergone endovenous laser ablation of the left and right great saphenous vein, the small saphenous vein, the left accessory saphenous vein, and an incompetent left calf brand manager vein located 15 cm proximal to the left medial malleolus. He is currently wearing graduated compression stockings which are documented to be 20-30 mmHg compression and these are thigh high. He reports great compliance with use. He is also had previous arterial work-up with no intervention recommended by letter, his vascular surgeon. He denies taking nutritional supplementation. He saw dermatology and had a biopsy of the ulcer site. He also was previously treated by infectious disease for various contaminations and infections. He is not antibiotics at this time nor does he have any redness or odor coming from the wound. He denies fever, chill, nausea, vomiting, loss of appetite. 05/18/22: Mr. Jeronimo presents with a new right lower extremity ulceration. He states that this has been present for months and he has been trying to manage it at home without any significant improvement. Opened up months ago, no known precipitating factor. Has been applying wound dressings without any significant improvement. He reports increased drainage. Denies significant pain. No chills, fever or feeling of unwell. 10/16/24: Mr. Jeronimo presents with a new right lower extremity ulceration. He states that it started out as a very small area that was slipping and then in the last week, became rather extensive. He also reports a foul smell. Has noted increase lower extremity edema. He states that he has been wearing his compression (20 to 30 mmHg) consistently. No chills, fever or otherwise feeling of unwell. Also has a new area on his left lower medial leg. He states that he has been applying same 1 products to these new areas. Progress of Wound: Had cultures done last week due to increased drainage and foul smell from right lower extremity. Drainage persists. Cultures with rare growth for aerobic and positive anaerobic growth. Was seen by vascular surgeon yesterday. Otherwise, no acute concerns. Objective Data Objective Data Vital Signs: Vital Signs Temp Pulse Resp BP 96 F L 80 18 145/88 H 08/27/25 08:02 08/27/25 08:02 08/27/25 08:02 08/27/25 08:02 Lab / Micro Data Micro: Microbiology 08/20/25 08:28 Wound - Ankle Gram Stain - Final 08/20/25 08:28 Wound - Ankle Wound Culture - Final Escherichia coli Corynebacterium minutissimum 08/20/25 08:28 Wound - Ankle Anaerobic Culture - Final Anaerobic cocci Charges/Coding Procedures Integumentary [id number]: [id number] Lakeisha subq tissue 20 sq cm/< Physical Exam Const alert, oriented x3 and no apparent distress General Appearance: cooperative and comfortable HEENT normocephalic Head and Scalp: normal to inspection, normocephalic and atraumatic Eyes EOMs intact bilaterally Neck full ROM and supple General: normal visual inspection Resp normal respiratory effort Effort and Inspection: able to speak in complete sentences Extremity normal to inspection General Extremity: edema Skin Wounds: wounds noted size Size: See clinical note, bed granulating well, margins well defined, no odor, open and surrounding erythema Neuro oriented x3, CN's II-XII intact bilaterally, moves all extremities and no focal motor deficits Psych mental status grossly normal, thought process normal, cooperative and affect normal Debridement Note Debridement Note Wound debrided: Right lower extremity/medial ankle Type of Debridement: Excisional debridement Anesthesia Used: 5% Lidocaine Gel Depth: Down to and including healthy tissue and in the subcutaneous layer Percentage of wound debrided: 100 Instrument Used: 5mm curette Tissue Removed: Slough and devitalized tissue Severity: Fat Layer Exposed Amount of bleeding with debridement: Mild Bleeding Controlled with: Pressure Patient tolerated procedure: Patient tolerated procedure well Post-Debridement Measurements and Additional Note: Post-Debridement Measurements/Treatment KIMBERLY - Nurse 1 - General Ulcer Assessment Start: 08/06/25 08:10 Freq: Status: Active Protocol: SHANTA Activity Type Activity Date Activity User E-sign Co-sign Detail Recorded Client Recorded Date Recorded By Document 08/06/25 08:11 RB [id number] 08/06/25 08:15 RB Document 08/20/25 08:15 RB [id number] 08/20/25 08:19 RB Document 08/27/25 08:02 RB [id number] 08/27/25 08:11 RB 08/06/25 08/20/25 08/27/25 08:11 08:15 08:02 - Today's Visit Information Type of service Follow-up Visit Follow-up Visit Follow-up Visit (Physician/COMMERCIAL OR INSTITUTIONAL CLEANER (Physician/COMMERCIAL OR INSTITUTIONAL CLEANER (Physician/COMMERCIAL OR INSTITUTIONAL CLEANER ) ) ) Arrival Mode Ambulatory Ambulatory Ambulatory Transfer Assistance None None None Patient Identification Verified (Name & Yes Yes Yes ) Patient Requires Transmission-Based No No No Precautions Vital Signs Temperature (97.8 F-99.1 F) 97.8 F 97 F L 96 F L Temperature Source Temporal Temporal Temporal Pulse Rate (60-100) 87 91 80 Pulse Location Monitor Monitor Monitor Respiratory Rate (12-18) 18 18 18 Respiratory rate source Observation Observation Observation Blood Pressure (90/60-120/80) 155/81 H 144/95 H 145/88 H Blood Pressure Mean 105 111 107 Source Monitor Monitor Monitor Position Semi-Fowlers Semi-Fowlers Semi-Fowlers Blood Pressure Location Right Arm Left Arm Left Arm History Since Last Visit- (Skip if this is Patient's initial visit) Have you changed medications since your No No No last visit? Any new allergies or adverse reactions No No No Had a fall/change in ADL's that may No No No increase risk of falls Signs or symptoms of abuse and/or No No No neglect since last visit Have you been in the hospital since your No No No last visit? Has dressing in place as prescribed Yes Yes Yes Has compression in place as prescribed Yes Yes Yes Has offloadiing in place as prescribed N/A N/A N/A Experienced any changes in pain level or No No No management Left Footwear Regular Shoe Regular Shoe Right Footwear Regular Shoe Regular Shoe Pain Scale: 0-10 Numeric Is Patient Pain Free? Yes Yes Yes - Nurse 1 - General Ulcer Measurement Start: 08/06/25 08:10 Freq: Status: Active Protocol: Activity Type Activity Date Activity User E-sign Co-sign Detail Recorded Client Recorded Date Recorded By Document 08/06/25 08:11 RB [id number] 08/06/25 08:15 RB Edit Result 08/06/25 08:11 RB (1) [id number] 08/06/25 08:15 RB Document 08/20/25 08:15 RB [id number] 08/20/25 08:19 RB Document 08/27/25 08:02 RB [id number] 08/27/25 08:11 RB (1) #10 Left Medial Ankle - Current Size (cm) - Depth 0.5 => 0.4 08/06/25 08/20/25 08/27/25 08:11 08:15 08:02 Wound Center Nurse 1 20. lt anterior ft -Combined with other wound No No No -Current Size (cm) - Length 1.3 1.5 1.5 -Current Size (cm) - Width 1 1 1 -Current Size (cm) - Depth 0.1 0.1 0.1 -Total Square Cm 1.3 1.5 1.5 -Photo Taken Yes Yes Yes -Tunneling No No No -Undermining/Tunneling No No No -Circular Undermining No No No -Exudate Amt Medium Medium Medium -Exudate Type Serosanguineous Serosanguineous Serosanguineous -Wound Margin Distinct, Thickened & Thickened & Outline Rolled Under Rolled Under Attached -Granulation Amt Medium (34-66%) Medium (34-66%) -Granulation Quality [place] -Slough/Fibrin Yes Yes Yes -Necrosis Amt Medium (34-66%) Medium (34-66%) Medium (34-66%) -Necrotic Tissue Type Adherent Slough Adherent Slough Adherent Slough -Structure Exposed N/A N/A N/A -Texture (Ara-wound Skin Appearance) Assessed Assessed Assessed -Moisture (Ara-wound Skin Appearance) Assessed,Dry/ Assessed Assessed,Dry/ Scaly Scaly -Color (Ara-wound Skin Appearance) Assessed Assessed Assessed -Temperature (Ara-wound Skin No Abnormality No Abnormality No Abnormality Appearance) (Pt Warm) (Pt Warm) (Pt Warm) -Tenderness on Palpation (Ara-wound No No No Skin Appearance) -Ulcer Cleansing Wound Cleanser Wound Cleanser Wound Cleanser -Foul Odor after Cleansing Yes No No -Anesthetic Used 5% Lidocaine 5% Lidocaine 5% Lidocaine Gel Gel Gel #18 Right Medial Ankle -Combined with other wound No No No -Current Size (cm) - Length 1.5 2.4 2 -Current Size (cm) - Width 0.9 1.7 1.6 -Current Size (cm) - Depth 0.1 0.3 0.2 -Total Square Cm 1.35 4.08 3.2 -Photo Taken Yes Yes Yes -Tunneling No No No -Undermining/Tunneling No No No -Circular Undermining No No No -Exudate Amt Medium Medium Medium -Exudate Type Serosanguineous Serosanguineous Serosanguineous -Wound Margin Distinct, Thickened & Distinct, Outline Rolled Under Outline Attached Attached -Granulation Amt Medium (34-66%) Medium (34-66%) Medium (34-66%) -Granulation Quality [place] -Slough/Fibrin Yes Yes Yes -Necrosis Amt Medium (34-66%) Medium (34-66%) Medium (34-66%) -Necrotic Tissue Type Adherent Slough Adherent Slough Adherent Slough -Structure Exposed N/A N/A N/A -Texture (Ara-wound Skin Appearance) Assessed Assessed Assessed, Scarring -Moisture (Ara-wound Skin Appearance) Assessed Assessed Dry/Scaly -Color (Ara-wound Skin Appearance) Assessed Assessed Assessed -Temperature (Ara-wound Skin No Abnormality No Abnormality No Abnormality Appearance) (Pt Warm) (Pt Warm) (Pt Warm) -Tenderness on Palpation (Ara-wound No No No Skin Appearance) -Ulcer Cleansing Wound Cleanser Wound Cleanser Wound Cleanser -Foul Odor after Cleansing No No No -Anesthetic Used 5% Lidocaine 5% Lidocaine 5% Lidocaine Gel Gel Gel #10 Left Medial Ankle -Combined with other wound No No No -Current Size (cm) - Length 3.5 3.5 1.5 -Current Size (cm) - Width 1.3 1.4 1 -Current Size (cm) - Depth 0.4 0.2 0.1 -Total Square Cm 4.55 4.90 1.5 -Photo Taken Yes Yes Yes -Tunneling No No No -Undermining/Tunneling No No No -Circular Undermining No No No -Exudate Amt Medium Medium Medium -Exudate Type Serosanguineous Serosanguineous Serosanguineous -Wound Margin Distinct, Thickened & Thickened & Outline Rolled Under Rolled Under Attached -Granulation Amt Medium (34-66%) Medium (34-66%) Medium (34-66%) -Granulation Quality [place] -Slough/Fibrin Yes Yes Yes -Necrosis Amt Medium (34-66%) Medium (34-66%) Medium (34-66%) -Necrotic Tissue Type Adherent Slough Adherent Slough Adherent Slough -Structure Exposed N/A N/A N/A -Texture (Ara-wound Skin Appearance) Assessed Assessed Assessed, Scarring -Moisture (Ara-wound Skin Appearance) Weeping Dry/Scaly Dry/Scaly -Color (Ara-wound Skin Appearance) Assessed Assessed Assessed -Temperature (Ara-wound Skin No Abnormality No Abnormality No Abnormality Appearance) (Pt Warm) (Pt Warm) (Pt Warm) -Tenderness on Palpation (Ara-wound No No No Skin Appearance) -Ulcer Cleansing Wound Cleanser Wound Cleanser Wound Cleanser -Foul Odor after Cleansing No No No -Anesthetic Used 5% Lidocaine 5% Lidocaine 5% Lidocaine Gel Gel Gel Lower Limb Edema Present Yes Yes Yes Right Calf (cm) 37.5 37.5 33 Right Ankle (cm) 22 22.1 23 Left Calf (cm) 36.5 37 32.5 Left Ankle (cm) 23 23 23 WC - Nurse 2 - General Ulcer CM Notes Start: 08/06/25 08:10 Freq: Status: Active Protocol: Activity Type Activity Date Activity User E-sign Co-sign Detail Recorded Client Recorded Date Recorded By Document 08/06/25 08:22 [id number] 08/06/25 08:31 GM Document 08/20/25 08:25 GM [id number] 08/20/25 08:37 GM Document 08/27/25 08:27 DS [id number] 08/27/25 08:32 DS 08/06/25 08/20/25 08/27/25 08:22 08:25 08:27 Wound Center Nurse 2 20. lt anterior ft -Time 08:22 08:30 08:27 -Correct Patient Yes Yes Yes -Correct Side, Site, Position Yes Yes Yes -Correct Procedure Yes Yes Yes -Procedure Performed Yes Yes Yes -Type of Procedure Debridement Debridement Debridement -Clinical Debridement Subcutaneous Subcutaneous Subcutaneous -Tissue Removed Subcutaneous Subcutaneous Subcutaneous -Post Debridement (cm) - Length 1.3 1.5 1.4 -Post Debridement (cm) - Width 1.0 1.0 0.9 -Post Debridement (cm) - Depth 0.1 0.1 0.1 -Total Square (Post) (cm) 1.30 1.50 1.26 -Area of Debridement (cm) - Length 1.3 1.5 1.4 -Area of Debridement (cm) - Width 1.0 1.0 0.9 -Total Square (Area) (cm) 1.30 1.50 1.26 -Tunneling No No No -Undermining/Tunneling No No No -Circular Undermining No No No -Wound/Ulcer Outcome Not Healed Not Healed Not Healed -Ulcer Cleansing Rinsed/ Rinsed/ Rinsed/ Irrigated with Irrigated with Irrigated with Saline Saline Saline -Foul Odor after Cleansing No No No -Bioengineered Tissue No No No -Bleeding Controlled with Pressure Pressure Pressure -Treatment Response Procedure Procedure Tolerated Well Tolerated Well -Offloading No No -Debridement - Subq, 1st 20sq cm No No Yes #18 Right Medial Ankle -Time 08:23 08:31 08:27 -Correct Patient Yes Yes Yes -Correct Side, Site, Position Yes Yes Yes -Correct Procedure Yes Yes Yes -Procedure Performed Yes Yes Yes -Type of Procedure Debridement Debridement Debridement -Clinical Debridement Subcutaneous Subcutaneous Subcutaneous -Tissue Removed Subcutaneous Subcutaneous Subcutaneous -Post Debridement (cm) - Length 1.6 2.3 2.1 -Post Debridement (cm) - Width 1.0 1.7 1.7 -Post Debridement (cm) - Depth 0.1 0.3 0.3 -Total Square (Post) (cm) 1.60 3.91 3.57 -Area of Debridement (cm) - Length 1.6 2.3 2.1 -Area of Debridement (cm) - Width 1.0 1.7 1.7 -Total Square (Area) (cm) 1.60 3.91 3.57 -Tunneling No No No -Undermining/Tunneling No No No -Circular Undermining No No No -Wound/Ulcer Outcome Not Healed Not Healed Not Healed -Ulcer Cleansing Rinsed/ Rinsed/ Rinsed/ Irrigated with Irrigated with Irrigated with Saline Saline Saline -Foul Odor after Cleansing No No No -Bioengineered Tissue No No No -Bleeding Controlled with Pressure Pressure Pressure -Treatment Response Procedure Procedure Procedure Tolerated Well Tolerated Well Tolerated Well -Offloading No -Debridement - Subq, 1st 20sq cm No No No #10 Left Medial Ankle -Time 08:23 08:32 08:28 -Correct Patient Yes Yes Yes -Correct Side, Site, Position Yes Yes Yes -Correct Procedure Yes Yes Yes -Procedure Performed Yes Yes Yes -Type of Procedure Debridement Debridement Debridement -Clinical Debridement Subcutaneous Subcutaneous Subcutaneous -Tissue Removed Subcutaneous Subcutaneous Subcutaneous -Post Debridement (cm) - Length 3.2 3.3 3.3 -Post Debridement (cm) - Width 1.0 1.0 1.3 -Post Debridement (cm) - Depth 0.2 0.3 0.2 -Total Square (Post) (cm) 3.20 3.30 4.29 -Area of Debridement (cm) - Length 3.2 3.3 3.3 -Area of Debridement (cm) - Width 1.0 1.0 1.3 -Total Square (Area) (cm) 3.20 3.30 4.29 -Tunneling No No No -Undermining/Tunneling No No No -Circular Undermining No No No -Wound/Ulcer Outcome Not Healed Not Healed Not Healed -Ulcer Cleansing Rinsed/ Rinsed/ Rinsed/ Irrigated with Irrigated with Irrigated with Saline Saline Saline -Foul Odor after Cleansing No No No -Bioengineered Tissue No No No -Bleeding Controlled with Pressure Pressure Pressure -Treatment Response Procedure Procedure Tolerated Well Tolerated Well -Offloading No No -Debridement - Subq, 1st 20sq cm Yes Yes No Pain Scale: 0-10 Numeric Is Patient Pain Free? Yes Yes Yes - Nurse 3 - General Ulcer D/C NN Start: 08/06/25 08:10 Freq: Status: Active Protocol: Activity Type Activity Date Activity User E-sign Co-sign Detail Recorded Client Recorded Date Recorded By Document 08/06/25 08:38 [id number] 08/06/25 08:39 Document 08/20/25 08:46 IL [id number] 08/20/25 08:47 IL 08/06/25 08/20/25 08:38 08:46 Wound Care Center Nurse 3 20. lt anterior ft -Primary Dressing Covered/Secured with Dry Gauze, Secured with Tape #18 Right Medial Ankle -Primary Dressing Covered/Secured with Dry Gauze, Secured with Tape -Patient Supplied Dressing Yes -Wound Comment(s) patient brought own supplies in. #10 Left Medial Ankle -Primary Dressing Covered/Secured with Dry Gauze, Secured with Tape Pain Scale: 0-10 Numeric Is Patient Pain Free? Yes Yes - Visit Discharge Discharge Condition Stable Stable Ambulatory Status Ambulatory Transportation Private Auto Private Auto Medication Reconcilliation completed & No No provided to patient/care provider Clinical Summary of Care Provided No Yes Notes: patient applied pt brings in his own own dressings. compression stockings. 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 Additional Wound Wound debrided: Left lower extremity/medial ankle Type of Debridement: Excisional debridement Anesthesia Used: 5% Lidocaine Gel Depth: Down to and including healthy tissue and in the subcutaneous layer Percentage of wound debrided: 100 Instrument Used: 5mm curette Tissue Removed: Slough and devitalized tissue Severity: Fat Layer Exposed Amount of bleeding with debridement: Mild Bleeding Controlled with: Pressure Patient tolerated procedure: Patient tolerated procedure well Additional Wound Wound debrided: Left dorsal foot Type of Debridement: Excisional debridement Anesthesia Used: 5% Lidocaine Gel Depth: Down to and including healthy tissue and in the subcutaneous layer Percentage of wound debrided: 100 Instrument Used: 5mm curette Tissue Removed: Slough and devitalized tissue Severity: Fat Layer Exposed Amount of bleeding with debridement: Mild Bleeding Controlled with: Pressure Patient tolerated procedure: Patient tolerated procedure well Assessment/Plan Assessment/Plan (1) Ulcer of left lower extremity with fat layer exposed: CODE(S): L97.922 - Non-pressure chronic ulcer of unspecified part of left lower leg with fat layer exposed (2) PVD (peripheral vascular disease): CODE(S): I73.9 - Peripheral vascular disease, unspecified (3) Chronic venous insufficiency: CODE(S): I87.2 - Venous insufficiency (chronic) (peripheral) (4) Delayed wound healing: CODE(S): T14.8XXD - Other injury of unspecified body region, subsequent encounter (5) Ulcer of right lower extremity with fat layer exposed: CODE(S): L97.912 - Non-pressure chronic ulcer of unspecified part of right lower leg with fat layer exposed PLAN: Plan Debridement done as documented above, procedure was well-tolerated. As above, he states that drainage persist however no foul/malodor noted today. Some worsening appreciated to the right and left with no significant change. Culture and sensitivity reviewed, though growth is rare however due to worsening will start on antibiotics. Per sensitivity, prescription for Augmentin for 2 weeks sent. Vascular surgery documentation reviewed: " duplex after ablations revealed successful closure of vessels adjacent to wound bed -will give time to see if further healing occurs -if recurrence or failure to heal may have further vessels to treat -return to office 6 months; if wounds remain will assess in office with ultrasound". Continue 30 minutes Dakin's soak daily, he states that he is only doing it for about 10 minutes or less. Apply Bactroban, Aquacel extra to ulcers, cover with KerraMax care. Change more often if soaked. Consistent use of compression again discussed. He has been advised to increase compression from 20-30 to 30 to 40 mmHg. He appears reluctant to. Compliance with dressing changes also strongly recommended. Increased protein intake, protein supplements, zinc and vitamin D. Optimal diabetes control recommended. Continue to moisturize skin consistently. His questions were answered, and he was advised to call with any further questions or concerns. Follow-up in 1 week. This note was generated with [employer] dictation software. It may contain incorrect words, spelling, and punctuation that were not noted in checking the note before signing.
--- NOTE | 2025-08-28 07:35 | WC ---
PHOTO-RIGHT MED ANKLE 08/27/25
--- NOTE | 2025-08-28 07:37 | WC ---
PHOTO-LEFT FOOT 08/27/25
--- NOTE | 2025-08-28 07:38 | WC ---
PHOTO-LEFT MED ANKLE 08/27/25
== END 2025-08-28 23:59 | disposition home or self-care (01) ==
LOC: WC 08:00
PROVIDERS: PCP Family Medicine; Referring Provider Family Medicine; Visit Provider Internal Medicine
DX: L97.522 Non-pressure chronic ulcer of other part of left foot with fat layer exposed (principal); L97.312 Non-pressure chronic ulcer of right ankle with fat layer exposed; L97.322 Non-pressure chronic ulcer of left ankle with fat layer exposed; I87.2 Venous insufficiency (chronic) (peripheral); I73.9 Peripheral vascular disease, unspecified; R60.0 Localized edema; T14.8XXD Other injury of unspecified body region, subsequent encounter
CPT/HCPCS: 11042; 87070; 87075; 87077; 87186; 87205